=== PATIENT | female | born 1950 | race Caucasian/White ===

== ENCOUNTER 2016-12-26 15:10 | Inpatient (IN) | payer MEDICARE, BC ==
[2016-12-26] VITALS (39 sets, daily range): BP systolic 85–176; BP diastolic 36–146; PULSE 79–104; RESP 11–30; Ht 157.5 cm; Wt 75.0 kg
[~2016-12-26] VITALS: Ht 157.5 cm; Wt 75.0 kg
[2016-12-26] MEDS ORDERED: PROPOFOL 100 ML ONE (15:40)
[2016-12-26] MEDS ORDERED: ONDANSETRON 4 MG INJ IV PRN (16:00)
[2016-12-26 16:19] LABS: ADD SCAN DIFF NO
[2016-12-26 16:23] LABS: ABNORMAL IP MESSAGE 1; HEMOGLOBIN 11.2 g/dl (12.0-16.0); RED CELL DISTRIBUTION WIDTH 15.4 % (11.5-14.5)
--- NOTE | 2016-12-26 16:26 | CONS ---
Date/Time of Note Date/Time of Note DATE: 12/26/16 TIME: 16:20 Assessment/Plan Assessment/Plan Chief Complaint/Hosp Course Sepsis s/p CPA after trach change Respiratory failure, poss aspirated ? L PTX UTI===> yeast/Enterococcus Hx oral CA Encephalopathy Hx A fib and HTN Hx VRE + stool colonization Plan: Start Vanco, Merrem, Diflucan, check cx's, pulmonary/card rec-s Problems: Consultation Date/Type/Reason Admit Date/Time Dec 26, 2016 at 15:25 Type of Consultation: id Referring Provider: NINA MACIEL DO Exam/Review of Systems Vital Signs Vitals Vital Signs Date Time Temp Pulse Resp B/P Pulse Ox O2 Delivery O2 Flow Rate FiO2 12/26/16 16:00 18 129/83 Mechanical Ventilator 12/26/16 15:45 100 12/26/16 15:36 97.8 Medications Medications Current Medications Hydrocortisone 50 mg 50 mg Q8 IV ; Start 12/26/16 at 16:00 Sodium Chloride (NS) 1,000 ml @ 50 mls/hr Q20H IV ; Start 12/26/16 at 16:00 Ondansetron HCl (Zofran Inj) 4 mg Q6H PRN IV NAUSEA AND/OR VOMITING; Start at 16:00 Pantoprazole (Protonix Iv) 40 mg DAILY@06 IV ; Start 12/27/16 at 06:00 LORETO MCKEON NP Dec 26, 2016 16:26
[2016-12-26 16:30] LABS: HEMATOCRIT 34.2 % (37.0-47.0); MEAN CORPUSCULAR HEMOGLOBIN 31.8 pg (29.0-33.0); MEAN CORPUSCULAR HGB CONC 32.7 g/dl (32.0-37.0); MEAN CORPUSCULAR VOLUME 97.2 fl (82.0-101.0); RED BLOOD COUNT 3.52 10^6/ul (4.20-5.40); WHITE BLOOD COUNT 35.5 10^3/ul (4.8-10.8)
[2016-12-26] MEDS ORDERED: VANCOMYCIN IV PER PHARMACY XX SCH (16:30)
--- NOTE | 2016-12-26 16:30 | RADRPT ---
PROCEDURE: CHEST 1VW CLINICAL INDICATION: Shortness of breath TECHNIQUE: Single frontal view of the chest was obtained COMPARISON: 12/26/2016 FINDINGS: Stable positioning of endotracheal tube. Extensive subcutaneous emphysema is again seen. The cardiac size is normal. Aortic vascular calcifications are demonstrated. There is no pulmonary vascular congestion. The lungs are clear. No consolidation, effusion, or pneumothorax. Mild degenerative changes of the visualized osseous structures are visualized. Are not of the diaphr agm is again seen. IMPRESSION: 1. Stable extensive subcutaneous emphysema. 2. Atherosclerosis. 3. Stable intraperitoneal air. RPTAT:PP .Vikas Maher MD, Date Time Electronically viewed and signed by .Vikas Maher MD, on 12/26/2016 16:29 .V/
[2016-12-26 16:31] LABS: PLATELET COUNT 436 10^3/UL (140-415)
[2016-12-26] MEDS: SOD CHLORIDE 0.9% 1,000 ML IV SCH ×2 (16:32→20:40)
--- NOTE | 2016-12-26 16:33 | CONS ---
Date/Time of Note Date/Time of Note DATE: 12/26/16 TIME: 16:21 Assessment/Plan Assessment/Plan Chief Complaint/Hosp Course Cardiopulmonary Resuscitation by me: See code documentation for specific details. ACLS and BLS were performed with high quality chest compressions and minimal interruptions. Dr. Erwin, the neck skewer was present. He asked me to stay and assist with the code. Reversible causes were assessed and treated. The rest is likely respiratory in etiology. The neck skewer attempted to replace her trach with subsequent placement of the new trach in the subcutaneous tissue. He subsequently tried to orally intubate the patient with subsequent esophageal intubation. He then asked me to take over, after which I successfully intubated the patient. She had bloody discharge from the ET tube. After several bagged breaths, she had a return of spontaneous circulation with sinus tachycardia on the monitor. Pulses were palpable distally. Endotracheal Intubation by me: Pre assessment performed. See preceding note for details. RSI: Not done Blade: Mac 4 with assistance of bougie ET Tube: 7.0 cm passed over bougie Depth: 21 cm at the lip Intubation confirmed by colorimetric CO2, equal breath sounds, quiet over the stomach. Chest X-ray 1V Interpreted by me: 0.5 cm above the sammy ET tube. Subcutaneous emphysema, probable left pneumothorax. Critical Care Time: 30 minutes Treatments/Evaluations: Close monitoring and treatment of unstable vital signs, cardiorespiratory, and neurologic status, while maintaining tight balance of fluid, respiratory, and cardiac interventions. This time includes discussing the case with the patient and the patients family. This time does not include all procedures stated elsewhere in this record. This time also includes reviewing old records, labs and radiological studies. This time includes examining and re-examining the patient. Additionally, this time also includes arranging care with admitting and consulting physicians. Patient was going to be transferred to the ICU. Problems: (1) Cardiopulmonary arrest with successful resuscitation Status: Resolved (2) Acute and chronic respiratory failure Status: Acute Consultation Date/Type/Reason Admit Date/Time Dec 26, 2016 at 15:25 Date of Consultation: Dec 26, 2016 Type of Consultation: ED Physician Reason for Consultation Cardiopulmonary arrest Referring Provider: TRENT ERWIN MD Hx of Present Illness I was called to [facility] for a CODE BLUE for 66-year-old female with chronic respiratory failure with a tracheostomy who lost pulses. She had a trach change today that was complicated by bleeding from the tracheostomy site. After this she was stable, then subsequently lost pulses. When I arrived, Dr Erwin the neck skewer was in the room. He asked that I stay to assist with the code. It sounds like the patient was in PEA arrest initially. Compressions were in progress when I arrived Unable to obtain given mental status Past Medical History Medical History: other (Unable to obtain) Past Surgical History Past Surgical Hx: other (Unable to obtain) Family History Significant Family History: other (Unable to obtain) Social History Drug Use: other (Unable to obtain) Exam/Review of Systems Vital Signs Vitals Vital Signs Date Time Temp Pulse Resp B/P Pulse Ox O2 Delivery O2 Flow Rate FiO2 12/26/16 16:00 18 129/83 Mechanical Ventilator 12/26/16 15:45 100 12/26/16 15:36 97.8 Exam Const: Cyanotic, unresponsive, being bagged through the trach ENT: Blood present in oropharynx Neck: Trach in place with signs of old bleeding on her neck, no signs of active bleeding from the site Resp: Rhonchi bilaterally Cardio: Pulseless, CPR in progress Abd: Mildly distended Skin: Pale Ext: Cyanotic, no edema Neur: Obtunded Medications Medications Current Medications Hydrocortisone 50 mg 50 mg Q8 IV ; Start 12/26/16 at 16:00 Sodium Chloride (NS) 1,000 ml @ 50 mls/hr Q20H IV ; Start 12/26/16 at 16:00 Ondansetron HCl (Zofran Inj) 4 mg Q6H PRN IV NAUSEA AND/OR VOMITING; Start at 16:00 Pantoprazole (Protonix Iv) 40 mg DAILY@06 IV ; Start 12/27/16 at 06:00 MANJU FINNEY MD Dec 26, 2016 16:31
[2016-12-26 16:43] LABS: ALBUMIN 3.6 g/dl (3.3-4.9)
[2016-12-26 16:44] LABS: POTASSIUM 4.9 mmol/L (3.5-5.1)
[2016-12-26 16:46] LABS: ALBUMIN/GLOBULIN RATIO 1.28; BILIRUBIN,INDIRECT 0.5 mg/dl (0-1.1); BILIRUBIN,TOTAL 0.5 mg/dl (0.2-1.3); CREATININE 0.65 mg/dl (0.44-1.00); TOTAL PROTEIN 6.4 g/dl (6.1-8.1)
[2016-12-26 16:47] LABS: CALCIUM 9.4 mg/dl (8.4-10.2)
[2016-12-26 17:12] LABS: AADO2 Arterial 263.8 mmHg (7.0-24.0); Arterial Base Excess 3.2 mmol/L (-3.0-3); Arterial COHb 0.3 % (0.0-3.0); Arterial Fraction of Oxyhgb 98.7 % (93.0-99.0); Arterial HCO3 28.4 mmol/L (22.0-26.0); Arterial MetHb 0.4 % (0.0-1.5); Arterial Total Hemglobin 11.1 g/dl (12.0-18.0); MODE VENT - AC
[2016-12-26] MEDS: PROPOFOL 100 ML IV SCH ×3 (17:14→20:40)
[2016-12-26] MEDS: FLUCONAZOLE 100 MG/NS (PMX) 50 ML IVPB SCH (17:15)
[2016-12-26] MEDS: MEROPENEM 500 MG/100 ML (PMX) 100 ML IVPB SCH ×2 (17:15→22:53)
[2016-12-26] MEDS: HYDROCORTISONE 100 MG INJ IV SCH ×2 (17:15→22:49)
[2016-12-26 17:28] LABS: ADD UMIC YES; URINE BILIRUBIN (Dip) NEGATIVE (NEGATIVE); URINE BLOOD (Dip) TRACE (NEGATIVE); URINE COLOR LT. YELLOW (YELLOW); URINE GLUCOSE (Dip) NEGATIVE (NEGATIVE); URINE KETONES (Dip) NEGATIVE (NEGATIVE); URINE LEUKOCYTE ESTERASE (Dip) NEGATIVE (NEGATIVE); URINE NITRITE (Dip) NEGATIVE (NEGATIVE); URINE TOTAL PROTEIN (Dip) 2+ (NEGATIVE); URINE UROBILINOGEN (Dip) 0.2 E.U./dL (0.1-1.0)
[2016-12-26 17:33] LABS: LYMPHOCYTES # 1.4 10^3/ul (0.8-2.9); MONOCYTE # 1.1 10^3/ul (0.3-0.9)
[2016-12-26 17:34] LABS: PLATELET ESTIMATE PLT APPEAR ADEQUATE; PLATELETS CLUMPS 1+
[2016-12-26 18:13] LABS: RENAL EPITHELIAL CELLS,URINE MODERATE
[2016-12-26 18:14] LABS: BACTERIA,URINE MODERATE
[2016-12-26] MEDS ORDERED: VANCOMYCIN 1.5 GM in SOD CHLORIDE 0.9% 250 ML IVPB SCH (18:30)
[2016-12-26] MEDS ORDERED: VANCOMYCIN 2 GM in SOD CHLORIDE 0.9% 500 ML IVPB SCH (18:30)
[2016-12-26] MEDS ORDERED: NORepinephrine 8MG/250 ML (PMX 250 ML IV SCH (20:30)
[2016-12-27] VITALS (105 sets, daily range): BP systolic 96–171; BP diastolic 57–104; PULSE 70–89; RESP 0–19
--- NOTE | 2016-12-27 00:11 | CONS ---
DATE OF ADMISSION: 12/26/2016 DATE OF CONSULTATION: 12/26/2016 TYPE OF CONSULTATION: Infectious disease for Dr. Figueroa Le. REQUESTING PHYSICIAN: Abebe Valderrama DO HISTORY OF PRESENT ILLNESS: The patient is a 66-year-old white female who was admitted to [facility] from [place] after having several episodes of aspiration pneumo liliana-precipitated acute respiratory failure. 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 The patient upon arrival had a cardiac arrest with pulseless electrical activity. The patient was intubated with difficulty and resuscitated with appropriate cardiopulmonary resuscitation efforts. She was then stabilized and ad mitted to the intensive care unit. Her white count was 35,500 with 90 polys, 3 bands, 4 lymphocytes , 3 monocytes. Urinalysis had a specific gravity of 1.015 and 5 to 10 RBCs, no WBCs, negative leuko cyte esterase and nitrite. The patient's arterial blood gas had a pH of 7.52, pCO2 of 54 and a pO2 of 79 on 40% O2. Sputum culture initially has grown gram-negative rods and gram-positive cocci. Th ere is negative Clostridium difficile, and MRSA is negative. Chest x-ray revealed clear lungs with stable intraperitoneal air and subcutaneous emphysema. The patient was begun treatment with vancomy tosha, meropenem and Diflucan. The patient apparently previously had grown yeast and enterococcus latosha or to admission from her urine. PAST MEDICAL HISTORY: Paroxysmal atrial fibrillation and hypertension, hypothyroidism, adrenal insu fficiency, anemia of chronic disease, spontaneous right pneumothorax, dysphagia due to tongue resect ion. PAST SURGICAL HISTORY: Her operations have consisted of percutaneous gastrostomy and oral carcinoma surgery with tongue resection. ALLERGIES: THE PATIENT IS ALLERGIC TO: 1. POVIDONE IODINE. 2. OXYCODONE. 3. PROMETHAZINE. REVIEW OF SYSTEMS: The patient is unable to give a review of systems. MEDICATIONS: Include: 1. Pantoprazole. 2. Solu-Cortef 50 mg q.8h. for her John's. 3. Meropenem. 4. Diflucan. 5. Vancomycin. INITIAL IMPRESSION: 1. Cardiac arrest with successful resuscitation with complication of subcutaneous emphysema. 2. Aspiration pneumonia, recurrent. 3. Respiratory failure with multiple episodes due to aspiration. 4. History of dysphagia secondary to tongue resection. 5. Recovering acute renal failure due to aminoglycosides. 6. Adrenal insufficiency. 7. Hypothyroidism. 8. Hyperlipidemia. RECOMMENDATION: Continue present antibiotics until complete culture results have been obtained and add aerosolized Colistin 75 mg every 12 hours for 7 days. Also, I would recommend replacing the G-t ube with a J-tube or a G-J tube because of recurrent aspiration and no chance that there is going to be improvement of the anatomic situation above. Also continue proton pump inhibitors and recommend ing adding Reglan 10 mg IV q.8h. Thank you for referring this interesting patient to Dr. Figueroa Le. Dictated By: Trevin MONK/NTS Conf#: [id number] DID#: [id number]
[2016-12-27] MEDS: MEROPENEM 500 MG/100 ML (PMX) 100 ML IVPB SCH ×3 (05:29→21:19)
[2016-12-27] MEDS: PANTOPRAZOLE 40 MG INJ IV SCH (05:29)
[2016-12-27] MEDS: HYDROCORTISONE 100 MG INJ IV SCH ×3 (05:29→21:17)
[2016-12-27] MEDS: METOCLOPRAMIDE 10 MG INJ IV SCH ×3 (05:29→21:17)
[2016-12-27] MEDS: PROPOFOL 100 ML IV SCH ×4 (05:30→23:10)
[2016-12-27] MEDS: VANCOMYCIN 1 GM in NS 250 ML IVPB SCH ×2 (05:50→17:36)
[2016-12-27 05:58] LABS: ADD SCAN DIFF NO
[2016-12-27 06:26] LABS: POTASSIUM 3.8 mmol/L (3.5-5.1)
[2016-12-27 06:29] LABS: CREATININE 0.65 mg/dl (0.44-1.00)
[2016-12-27 06:30] LABS: CALCIUM 8.9 mg/dl (8.4-10.2); MAGNESIUM 2.2 mg/dl (1.7-2.5); PHOSPHORUS 3.5 mg/dl (2.5-4.9)
[2016-12-27] MEDS ORDERED: VANCOMYCIN 1.25 GM in SOD CHLORIDE 0.9% 250 ML IVPB SCH (06:30)
[2016-12-27 07:19] LABS: BASOPHILS % 0.1 % (0.0-2.0); HEMATOCRIT 25.5 % (37.0-47.0); HEMOGLOBIN 8.1 g/dl (12.0-16.0); LYMPHOCYTES # 1.1 10^3/ul (0.8-2.9); MEAN CORPUSCULAR HGB CONC 31.8 g/dl (32.0-37.0); MEAN CORPUSCULAR VOLUME 97.7 fl (82.0-101.0); MEAN PLATELET VOLUME 11.2 fl (7.4-10.4); MONOCYTE # 1.1 10^3/ul (0.3-0.9); NEUTROPHIL # 19.4 10^3/ul (1.6-7.5); NEUTROPHILS % 89.3 % (39.0-77.0); PLATELET COUNT 252 10^3/UL (140-415); RED BLOOD COUNT 2.61 10^6/ul (4.20-5.40); RED CELL DISTRIBUTION WIDTH 15.6 % (11.5-14.5); WHITE BLOOD COUNT 21.7 10^3/ul (4.8-10.8)
--- NOTE | 2016-12-27 07:23 | CONS ---
Date/Time of Note Date/Time of Note DATE: 12/27/16 TIME: 07:18 Assessment/Plan Assessment/Plan Additional Assessment/Plan Ventilator settings; AC of 14, tidal volume 400, PEEP of 0 30% FiO2. Patient currently on propofol 40 mics per kilogram per minute. Assessment recommendations; 1. Patient admitted to [facility] for continuation of COPD exacerbation status post head and neck cancer surgery status post tracheostomy. 2. Status post CPR after undergoing tracheostomy change. Patient does have recovery of mental status. Next 3. History of COPD. 4. History of chronic high-dose steroid use. 5. Leukocytosis, of unknown etiology. Possibly stress response, possibly exacerbated by intravenous hydrocortisone. Patient currently on broad-spectrum antibiotic coverage. 6. G-tube dislodgment. Next 7. Bilateral hypodense emphysema without any overt pneumothorax. Continue current treatment. Patient will need to have a redo tracheostomy done. Obtain a chest x-ray. Once x-rays done I will review it and decided the patient needs to have a CT scan of chest and. Most likely subcutaneous emphysema is tracking of air from the tracheostomy site. Meanwhile patient will be undergoing G-tube replacement today. Consultation Date/Type/Reason Admit Date/Time Dec 26, 2016 at 15:25 Initial Consult Date 12/26/16 Type of Consultation: Pulmonary/critical care Referring Provider: TRENT ARREGUIN MD 24 HR Interval Summary Free Text/Dictation Patient condition is critical but stable. Has remained hemodynamically stable. The patient yesterday underwent cardiac arrest at [facility] after undergoing a tracheostomy change patient was attended to at bedside by Dr. Ch and was intubated with some difficulty. Transferred to ICU. However after arrival here the patient did have spontaneous extremity movements therefore hypothermia protocol was not initiated. The patient was tried off sedation early this morning and according to the nurse patient does have good mental status and patient able to follow commands. Because of mild agitation she was re sedated.. General exam; elderly lady, or intubated. Currently in no distress. Sedated. Exam/Review of Systems Vital Signs Vitals Vital Signs Date Time Temp Pulse Resp B/P Pulse Ox O2 Delivery O2 Flow Rate FiO2 12/27/16 07:00 75 14 115/72 100 Mechanical Ventilator 12/27/16 05:40 30 12/27/16 04:00 97.7 Intake and Output 12/26/16 12/26/16 12/27/16 15:00 23:00 07:00 Intake Total 633.94 ml 774.96 ml Output Total 420 ml 250 ml Balance 213.94 ml 524.96 ml Exam H EENT exam; supple neck, or intubated. There is a mild soft tissue swelling involving the right side of the neck. Patient has good dentition. Pupils are equal and reactive to light. No lymphadenopathy. No thyromegaly. There is a dressing applied over the previous tracheostomy site. Next Chest examination KS: Diminished but clear breath sounds bilaterally. Mild bilateral subcutaneous emphysema felt involving the anterior chest wall. S1-S2 audible, no murmurs. Regular rhythm. Abdomen examination; soft, G-tube in place. Organomegaly, no organomegaly. Bowel sounds audible. Extremity examination; no peripheral edema. Pulses 1+ bilaterally. SEO EXECUTIVE examination a micro patient is sedated. Results Result Diagram: 12/26/16 1615 12/27/16 0545 Results 24 hrs Laboratory Tests Test 12/26/16 16:00 12/26/16 16:15 12/26/16 16:45 12/26/16 21:33 Urine Amorphous Urates MANY Urine Bacteria MODERATE Urine Bilirubin NEGATIVE Urine Clarity CLOUDY Urine Color LT. YELLOW Urine Glucose NEGATIVE Urine Hemoglobin TRACE Urine Ketones NEGATIVE Urine Leukocyte Esterase NEGATIVE Urine Microscopic RBC 5-10 Urine Microscopic WBC NONE SEEN Urine Nitrite NEGATIVE Urine Random Creatinine 25.64 Urine Random Sodium 126 H Urine Renal Epithelial Cells MODERATE Urine Specific Benedict[place] 1.015 Urine Total Protein 163.0 H Urine Urobilinogen 0.2 E.U./dL Urine pH 8.0 Alanine Aminotransferase (ALT/SGPT) 66 Albumin 3.6 Albumin/Globulin Ratio 1.28 Alkaline Phosphatase 166 H Anion Gap 19 #H Aspartate Amino Transf (AST/SGOT) 102 H Band Neutrophils % 3.0 Blood Urea Nitrogen 32 H Calcium Level 9.4 Carbon Dioxide Level 26 Chloride Level 99 Clumped Platelets 1+ Creatinine 0.65 Direct Bilirubin 0.00 Globulin 2.80 Glucose Level 194 Hematocrit 34.2 L Hemoglobin 11.2 L Indirect Bilirubin 0.5 Lymphocytes # 1.4 Lymphocytes % 4.0 L Mean Corpuscular Hemoglobin 31.8 Mean Corpuscular Hemoglobin Concent 32.7 Mean Corpuscular Volume 97.2 Mean Platelet Volume 11.0 H Monocytes # 1.1 H Monocytes % 3.0 Neutrophils # 32.0 H Neutrophils % 90.0 H Platelet Count 436 #H Platelet Estimate PLT APPEAR ADEQUATE Potassium Level 4.9 Red Blood Count 3.52 L Red Cell Distribution Width 15.4 H Sodium Level 139 Total Bilirubin 0.5 Total Protein 6.4 White Blood Count 35.5 #H Arterial Blood HCO3 28.4 H Arterial Blood Base Excess 3.2 H Arterial Blood Oxygen Saturation 99.4 H Jonn Test N/A Arterial Blood Gas Puncture Site Right Brachial Arterial Blood Carboxyhemoglobin 0.3 Arterial Blood Date Drawn 12/26/2016 4:55:17 PM Arterial Blood Methemoglobin 0.4 Arterial Blood pCO2 (Temp correct) 46.3 H Arterial Blood pH (Temp corrected) 7.406 Arterial Blood pO2 (Temp corrected) 402.9 H Blood Gas A-a O2 Differential 263.8 H Blood Gas Actual Respiration Rate 27 Blood Gas Critical Value Read Back Marilin BROOKS RN Blood Gas Modality VENT - AC Blood Gas Notified Time 12/19/2016 5:12:33 PM Blood Gas Notified Whom RDIX Blood Gas Respiration Rate 14.0 Blood Gas Specimen Source Blood arterial Blood Gas Temperature 37.0 Blood Gas Tidal Volume 400.0 FiO2 100.0 Oxyhemoglobin Percent 98.7 Total Hemoglobin 11.1 L Lactic Acid Level 1.2 Test 12/27/16 05:45 Anion Gap 14 Blood Urea Nitrogen 30 H Calcium Level 8.9 Carbon Dioxide Level 31 Chloride Level 99 Creatinine 0.65 Glucose Level 84 # Magnesium Level 2.2 Phosphorus Level 3.5 Potassium Level 3.8 Sodium Level 140 Medications Medications Current Medications Hydrocortisone 50 mg 50 mg Q8 IV Last administered on 12/27/16 05:29; Admin Dose 50 MG; Start 12/26/16 at 16:00 Sodium Chloride (NS) 1,000 ml @ 100 mls/hr Q10H IV Last administered on 20:40; Admin Dose 100 MLS/HR; Start 12/26/16 at 16:00 Ondansetron HCl (Zofran Inj) 4 mg Q6H PRN IV NAUSEA AND/OR VOMITING; Start at 16:00 Pantoprazole 40 mg 40 mg DAILY@06 IV Last administered on 12/27/16 05:29; Admin Dose 40 MG; Start 12/27/16 at 06:00 Meropenem 100 ml @ 200 mls/hr Q8 IVPB Last administered on 12/27/16 05:29; Admin Dose 200 MLS/HR; Start 12/26/16 at 17:30 Fluconazole/ Sodium Chloride 50 ml @ 50 mls/hr Q24H IVPB Last administered on 17:15; Admin Dose 50 MLS/HR; Start 12/26/16 at 17:30 Propofol 100 ml @ 3.12 mls/hr Q12H IV Last administered on 12/27/16 05:30; Admin Dose 18.72 MLS/HR; Start 12/26/16 at 17:00 Vancomycin HCl 250 ml @ 125 mls/hr Q12H IVPB Last administered on 12/27/16 05 :50; Admin Dose 125 MLS/HR; Start 12/27/16 at 06:30 Norepinephrine 250 ml @ 1.875 mls/ hr TITRATE IV ; Start 12/26/16 at 20:30 Norepinephrine/ Dextrose (Levophed/D5W) 500 ml @ 1.87 mls/hr TITRATE IV ; Start 12/26/16 at 20:30 Metoclopramide HCl (Reglan) 10 mg Q8 IV Last administered on 12/27/16 05:29; Admin Dose 10 MG; Start 12/27/16 at 06:00 EMILIANO HICKS 17, 2017 07:22
[2016-12-27 07:32] LABS: AADO2 Arterial 47.2 mmHg (7.0-24.0); Allen Test ACCEPTAB; Arterial COHb 0.3 % (0.0-3.0); Arterial Fraction of Oxyhgb 96.8 % (93.0-99.0); Arterial HCO3 28.6 mmol/L (22.0-26.0); Arterial MetHb 0.5 % (0.0-1.5); Arterial Total Hemglobin 8.3 g/dl (12.0-18.0); Blood Gas Low PEEP Setting 0 cmH2O; MODE VENT - AC
--- NOTE | 2016-12-27 08:08 | HP ---
DATE OF ADMISSION: 12/26/2016 CHIEF COMPLAINT: Status post code arrest. HISTORY OF PRESENT ILLNESS: This is a 66-year-old female with a past medical history of tongue canc er diagnosed 10 years ago status post resection and reconstruction surgery, history of hypertension, history of dysphagia status post PEG who initially presented to an outside hospital in September for shortness of breath. The patient at that time was diagnosed with bilateral healthcare-associated p neumonia secondary to pseudomonas. The patient also, during that hospital course, had intermittent nose bleeding. The patient had a prolonged hospital course that was complicated with respiratory fa ilure, intubation, extubation, and reintubation. The patient was eventually trached. The patient a lso developed acute kidney injury during the hospital course felt to be secondary to aminoglycosides . She was dialyzed for a total of 8 sessions. She has been off dialysis now for approximately 7 we eks. The patient was also septic due to pseudomonas pneumonia and was treated with IV antibiotics a nd completed her antibiotic course. The patient, during that hospital workup, also developed recurr ent nose bleeding, and given her previous history of oral cancer, tongue cancer, a CT scan and MRI w ere performed which apparently showed concerns for possible recurrence of mass. The patient was not able to be seen by ENT at outside hospital. The patient was eventually stabilized and transferred to [facility]. While at [facility], the patient was clinically stable and was continuing her respiratory care. The patient yesterday had an evaluation of her trach. Following the evaluat ion, the patient developed bleeding from the trach site and apparently aspirated and underwent a cod e arrest. The patient was coded for approximately 14 minutes. The patient was subsequently intubat ed and transferred to the intensive care unit at [facility]. The patient was not place d on hypothermic protocol. She had evidence of movements of her extremities and was beginning to wa ke up and open her eyes. While at the intensive care unit, the patient has been critical but stable . There have been no recurrent episodes of hemoptysis. No bleeding. The patient has had no hemato chezia. There have been no fevers, no rashes noted. Upon my evaluation at this time, the patient is sedated, intubated, and in no apparent distress. PAST MEDICAL HISTORY: As stated above, history of head and neck oral cancer status post surgical re section ____ years ago, history of chronic dysphagia status post PEG, history of hypothyroidism, his tory of hypertension, history of adrenal insufficiency, history of acute kidney injury status post h emodialysis, history of atrial fibrillation. PAST SURGICAL HISTORY: Status post PEG, status post tracheostomy, status post oral surgery. SOCIAL HISTORY: Does not drink, smoke, or do drugs. FAMILY HISTORY: Noncontributory. ALLERGIES: NO KNOWN DRUG ALLERGIES. MEDICATIONS: Have been reviewed. REVIEW OF SYSTEMS: A 14-point review of systems was conducted. Pertinent positives as stated in HP I; otherwise negative. PHYSICAL EXAMINATION: VITAL SIGNS: Blood pressure is 115/72, respiration 14, pulse 75, temperature 97.7. HEENT: Head is normocephalic. NECK: Shows dressing over tracheostomy site which is clean, dry, intact. HEART: Regular rate. LUNGS: Show diminished breath sounds at base. Positive rhonchi. ABDOMEN: Soft, nontender to palpation. Positive PEG. EXTREMITIES: Negative for clubbing, cyanosis, no edema. DERMATOLOGIC: No rashes. MUSCULOSKELETAL: No joint effusion. CHEST: The patient has noted crepitus. NEUROLOGIC: Limited exam as the patient is sedated. LABORATORY DATA: The patient's laboratory data shows sodium 140, potassium 3.8, chloride 99, BUN 13 , creatinine 0.65. White count 35.5, hemoglobin 11.2, hematocrit 34.2, platelet count is 436. ABG shows pH 7.4 with pCO2 of 46. Urinalysis was reviewed. ASSESSMENT AND PLAN: This is a 66-year-old female who presents with: 1. Status post code arrest. Etiology may be secondary to aspiration, hypoxemia. The patient had s pontaneous return of circulation. Currently, the patient is critical but hemodynamically stable. P ivana at this point is to follow up with Cardiology, Dr. Garcia, for further evaluation. We will get a 2D echo. We will check serial troponins. We will continue to monitor closely. 2. Ventilator dependent respiratory failure. The patient is status post intubation. Currently sta ble. ABG has been reviewed. Vent settings have been reviewed. We will continue to monitor. Follo w up with Pulmonary. 3. Acute tracheal bleed. Underlying etiology is unclear. The patient's tracheostomy was removed. We will place an ENT consult for further evaluation with Dr. Carpio and monitor closely. 4. Sepsis secondary to likely aspiration pneumonia. We will continue current broad spectrum antibi otics. Follow up cultures. Follow up with Infectious Disease. 5. History of adrenal insufficiency. The patient is currently on stress dose of hydrocortisone. W e will taper off over the next 24 to 48 hours and monitor closely. 6. Leukocytosis. Etiology is likely multifactorial secondary to steroids, sepsis. We will continu e to taper off hydrocortisone. Continue antibiotic therapy. 7. History of tongue cancer status post surgical resection. The possibility of recurrence at the [facility]. The patient is being followed by ENT. We will follow up recommendations. 8. Paroxysmal atrial fibrillation, currently in sinus rhythm. Continue to monitor. Continue medic al management. 9. Hypothyroidism. We will resume Synthroid. 10. Hypertension. Blood pressure is currently normotensive. Continue to monitor. 11. Dysphagia, status post PEG. The patient is pending GI evaluation with Dr. Higuera for G-tube ex change. 12. Anemia of chronic disease. Continue to monitor hemoglobin and hematocrit levels. 13. History of volume overload, diastolic heart failure. We will continue to monitor I's and O's c losely. We will decrease rate of IV fluids. 14. History of critical care myopathy. Continue to monitor. 15. Gastrointestinal and deep venous thrombosis prophylaxis. Continue proton pump inhibitor and se quential leg squeezers. Please note I spent over 40 minutes of critical care time with this patient. Dictated By: NINA PEREIRA/BALDO Conf#: [id number] DID#: [id number]
[2016-12-27] MEDS: COLISTIMETHATE (25 MG/ML INHAL SYG) NEB SCH ×2 (08:30→19:51)
[2016-12-27] MEDS ORDERED: ACETAMINOPHEN 650MG/20.3ML CUP GTB PRN (09:00)
[2016-12-27] MEDS ORDERED: POTASSIUM CHLORIDE 20 MEQ POWDER FOR ORAL SOLN JT ONE (09:00)
[2016-12-27] MEDS ORDERED: ZOLPIDEM 5 MG TAB PO PRN (09:00)
[2016-12-27] MEDS: predniSONE 20 MG TAB GTB SCH (09:00)
--- NOTE | 2016-12-27 09:12 | RADRPT ---
PROCEDURE: XR Chest. CLINICAL INDICATION: Status post intubation TECHNIQUE: A single AP view of the chest was obtained. COMPARISON: Chest x-ray dated 12/26/2016 FINDINGS: The endotracheal tube tip is 1 cm above the sammy. The lungs demonstrate diffuse bilateral interstitial opacities. There is a small left apical pneumo thorax. No pleural effusion is seen. The cardiomediastinal silhouette is mildly enlarged. Calcifi cations are seen within the aortic arch. Again noted is lucency along the cardiac border. There is extensive bilateral neck and chest wall subcutaneous emphysema. There is persistent air below the d iaphragm. The osseous structures are unremarkable. IMPRESSION: 1. Small left apical pneumothorax. In retrospect, present on the prior examination, but extremely difficult to visualize secondary to exposure technique and overlying subcutaneous emphysema. Overal l, no significant interval change. 2. Persistent pneumomediastinum, pneumoperitoneum and subcutaneous emphysema, overall improved from prior examination. 3. Bilateral interstitial opacities, likely reflecting interstitial edema. This is also unchanged. 4. Mild cardiomegaly and aortic atherosclerosis. 5. Endotracheal tube tip 1 cm above the sammy. RPTAT: HH .Arline Grier MD, MD Date Time Electronically viewed and signed by .Arline Grier MD, MD on 12/27/2016 09:11 .G/
[2016-12-27] MEDS: FLUTICASONE 0.05% 16 GM NAS SPRAY NASAL SCH ×2 (11:00→21:00)
[2016-12-27] MEDS: SOD CHLORIDE 0.9% 1,000 ML IV SCH ×2 (11:04→21:22)
--- NOTE | 2016-12-27 11:14 | RADRPT ---
PROCEDURE: CHEST 1VW CLINICAL INDICATION: Respiratory failure TECHNIQUE: Single frontal view of the chest was obtained COMPARISON: 12/27/2016 FINDINGS: Stable position of endotracheal tube. Stable subcutaneous chest wall emphysema. The cardiac size is normal. The degree of pneumoperitoneum has decreased since prior study. Aortic vascular calcifications are demonstrated. There is mild pulmonary vascular congestion. The lungs are clear. No consolidation, effusion, or pneumothorax. Mild degenerative changes of the visualized osseous structures are visualized. IMPRESSION: 1. Stable position of endotracheal tube. Stable subcutaneous chest wall emphysema. 2. Atherosclerosis with mild pulmonary congestion. 3. Decreased pneumoperitoneum. RPTAT:PP .Vikas Maher MD, MD Date Time Electronically viewed and signed by .Vikas Maher MD, MD on 12/27/2016 11:14 .V/
[2016-12-27] MEDS ORDERED: LIDOCAINE 1% (MDV) 20 ML INJ SC ONE (12:00)
--- NOTE | 2016-12-27 12:16 | CONS ---
DATE OF ADMISSION: 12/26/2016 DATE OF CONSULTATION: CONSULTATION FOLLOWUP SUBJECTIVE: No complaints. The patient is sedated. OBJECTIVE: VITAL SIGNS: Stable. She is off all the pressors. ABDOMEN: Benign. LUNGS: The patient is on vent. He is intubated orally. The crepitation has reduced. Air entry is good. EXTREMITIES: No edema. CENTRAL NERVOUS SYSTEM: The patient responds to deep stimulation, moves all the extremities. LABORATORY DATA: WBC has dropped down from 35,000 to 21.6, hematocrit also dropped down from 35 to 25, BUN is 30, alkaline phosphatase still was mildly elevated to 166. The chest x-ray today, there is a small left apical pneumothorax. There is a pneumomediastinum, pneumoperitoneum, and subcutaneo us emphysema. Overall improved from prior examination. The patient has cardiomegaly and endotrache al tube. IMPRESSION: 1. Subcutaneous emphysema which is dissected into the peritoneum. 2. Left apical pneumothorax. 3. Pneumomediastinum. 4. Malfunctioning G-tube which is changed at bedside now. 5. Anemia. No active gastrointestinal bleeding is noted. 6. Vent-dependent respiratory failure. 7. Acute tracheal bleed. 8. Adrenal insufficiency for which patient is on steroids. 9. Leukocytosis, improving. 10. Atrial fibrillation. 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 PLAN: G-tube has been changed to 20-Grenadian. We can resume feeding and all the medication through t he G-tube. Continue present care. Monitor WBC count and also hematocrit and will transfuse on a ne ed basis. Dictated By: ALYSSA INGRAM/BALDO Conf#: [id number] DID#: [id number]
--- NOTE | 2016-12-27 12:21 | GILP ---
DATE OF PROCEDURE: 12/27/2016 The patient is a 66-year-old female who has a malfunctioning G-tube. G-tube was placed for tongue cancer. The purpose is to change the G-tube at bedside. INFORMED CONSENT: The risk of the procedure, related and unrelated complications, explained to the and informed consent was obtained. DESCRIPTION OF PROCEDURE: The procedure was done bedside. The existing G-tube was removed by lubri cating the stalk. The bumper appeared to be somewhat calcified, making it slightly difficult to pul l it out. Once the G-tube was pulled out, the area was very well lubricated with KY jelly and a 20 Algerian replacement tube was passed with much ease into the stomach. The balloon was inflated with 2 0 mL of normal saline and there was a retrograde flow of gastric content, confirming its position in the G-tube. IMPRESSION: Successful change of G-tube done at bedside. PLAN: Resume feeding through the G-tube and give all the medications through the G-tube now. If th ere is any abdominal pain or discharge from the G-tube site, they should contact me. Dictated By: ALYSSA INGRAM/BALDO Conf#: [id number] DID#: [id number]
[2016-12-27] MEDS: ACETAZOLAMIDE 500 MG INJ IV SCH (13:43)
[2016-12-27] MEDS ORDERED: IPRATROPIUM (NEB) 0.5 MG/2.5 ML AMP HHN SCH (14:00)
[2016-12-27] MEDS ORDERED: LEVALBUTEROL (NEB) 0.63 MG/3 ML AMP HHN SCH (14:00)
--- NOTE | 2016-12-27 14:55 | PN ---
DATE: 12/27/2016 SUBJECTIVE: No acute changes. The patient is lying comfortably in bed, no fevers. VITAL SIGNS: Temperature 97.5, pulse 86, respirations 14, blood pressure 120/71, saturation 100% on 30% FIO2. LABORATORY DATA: WBC 21.7, H and H 8.1 and 25.5, platelets 252, neutrophils 89.3. BUN 30, creatini ne 0.65. INDWELLINGS: Endotracheal tube, Latif catheter, PEG. ANTIMICROBIALS: 1. Vancomycin. 2. Meropenem. 3. Diflucan. 4. The patient is also on Solu-Cortef. PHYSICAL EXAMINATION: GENERAL: Fragile, elderly woman who is lying comfortably in bed. HEENT: Head atraumatic, normocephalic. Sclerae anicteric. Buccal mucosa dry. NECK: Supple. Tracheostomy site covered with dressing. CHEST: Rise symmetrical. Breath sounds with crackles. HEART: S1, S2. ABDOMEN: Soft, bowel sounds present. EXTREMITIES: Without cyanosis. ASSESSMENT: 1. Status post cardiopulmonary arrest with acute respiratory failure requiring intubation. 2. Sepsis. 3. Probable aspiration pneumonia. 4. Urinary tract infection with cultures at [place] grew yeast and enterococcus. 5. Acute encephalopathy. 6. Vancomycin-resistant enterococcus stool colonization. 7. History of oral cancer. 8. Anemia. PLAN: The patient is hemodynamically stable, followed by multiple consultants. She is status post new PEG today. We will continue her on current regimen. Await for repeat cultures. Dictated By: LORETO MCKEON BULB SORTER for MARY LEONARDO/BALDO Conf#: [id number] DID#: [id number]
[2016-12-27] MEDS: CITALOPRAM 20 MG TAB GTB SCH (16:28)
[2016-12-27] MEDS: METOPROLOL 50 MG TAB GTB SCH ×2 (16:28→21:18)
--- NOTE | 2016-12-27 16:30 | RADRPT ---
PROCEDURE: XR Chest. CLINICAL INDICATION: Check PICC line position. TECHNIQUE: Single frontal view. COMPARISON: 12/27/2016. 0745 hours. FINDINGS: There is a left arm PICC line with the tip in the cavoatrial junction region. The endotracheal tube remains in satisfactory position. Extensive bilateral subcutaneous emphysema is unchanged. Mild p ulmonary edema is unchanged. The lungs are otherwise clear. The heart is mildly enlarged. There is calcification in the aorta consistent with atherosclerosis. There is no right pneumothorax. There is a small left pneumothorax, improved. Pneumoperitoneum has improved. IMPRESSION: 1. Satisfactory position of left arm PICC line. 2. Improved pneumoperitoneum and small left basilar pneumothorax. RPTAT: QQ .Guero Guadalupe MD, MD Date Time Electronically viewed and signed by .Guero Guadalupe MD, MD on 12/27/2016 16:29 .R/
[2016-12-27] MEDS: FLUCONAZOLE 100 MG/NS (PMX) 50 ML IVPB SCH (16:55)
[2016-12-27] MEDS ORDERED: SOD CHLORIDE 0.9% 100 ML ONE (17:17)
[2016-12-27] MEDS: LEVALBUTEROL (HFA) 15 GM INHALER INH SCH (19:51)
[2016-12-27] MEDS: IPRATROPIUM (HFA) 12.9 GM INHALER INH SCH (19:52)
[2016-12-27] MEDS ORDERED: ALBUTEROL HFA 8 GM INHALER INH SCH (20:00)
--- NOTE | 2016-12-27 20:56 | CONS ---
DATE OF ADMISSION: 12/26/2016 DATE OF CONSULTATION: 12/27/2016 REFERRING PHYSICIAN: Nina Valderrama MD REASON FOR CONSULTATION: Status post code blue, respiratory failure, arrhythmia. CHIEF COMPLAINT: Status post code blue. HISTORY OF PRESENT ILLNESS: Thank you for this referral. History obtained from the patient's chart , review of the old chart, discussion with the staff. The patient also known to me from previous ad mission to [facility]. The patient is an unfortunate, 66-year-old female with history of tongu e cancer, apparently diagnosed about 10 years ago, status post resection and reconstructive surgery. History of hypertension, dysphagia, status post PEG placement. The patient had a complicated cour se, including pneumonia, respiratory failure. The patient has been trached. Has been transferred t o [facility] for respiratory care. In [place], apparently, was evaluated for END. After that, apparently, reportedly has had a tracheal bleeding and followed by cardiopulmonary arrest and PEA. The patient has cardiopulmonary resuscitation, intubated and transferred to our facility. Patient h as had frequent PVCs. We were kindly asked to evaluate. PAST MEDICAL HISTORY: History of head and neck cancer status post-surgical resection many years ago , history of chronic dysphagia status post PEG placement disease, hypothyroidism, hypertension, hist ory of adrenal insufficiency, renal failure - status post dialysis - currently has improved, history of paroxysmal atrial fibrillation, previously, history of frequent PVCs. SURGICAL HISTORY: PEG placement. ENT surgery as above-mentioned, tracheostomy. SOCIAL HISTORY: Does not smoke or drink. FAMILY HISTORY: No reported coronary artery disease. ALLERGIES: NO REPORTED ALLERGIES. MEDICATIONS: As per medication reconciliation, personally reviewed. PHYSICAL EXAMINATION: VITAL SIGNS: Temperature 97.5, heart rate of 76, blood pressure 143/88, respiratory rate of 14, sat urating 100%. HEENT: Normocephalic, atraumatic. Status post intubation on the vent. NECK: Status post previous trach which is closed. CARDIOVASCULAR: Regular rate and rhythm, systolic murmur. PULMONARY: No wheezes heard, mild rhonchi at the base. GASTROINTESTINAL: Soft, nontender. EXTREMITIES: ____ . NEUROLOGIC: Sedated. LABORATORY: WBC of 21.7, hemoglobin of 8.1, platelets of 252. Sodium 140, potassium 3.8, BUN of 30 , creatinine of 2.65, glucose of 84. REVIEW OF OLD CHART: Showed echocardiogram done on December 26, which was personally reviewed, showe d an ejection fraction of 65%. The aortic valve has mild aortic stenosis. Rhythm strip shows sinus rhythm with frequent PVCs. ASSESSMENT AND PLAN 1. Status post cardiopulmonary arrest, most likely related to pulmonary arrest. 2. Respiratory failure, status post tracheostomy, currently intubated on the vent, vent-dependent. 3. History of sepsis and status post aspiration pneumonitis probably. 4. Tracheal bleeding, currently stabilized. 5. Severe anemia, secondary to #1. 6. Paroxysmal atrial fibrillation, currently in sinus rhythm. 7. Dysphagia, status post placement. 8. Frequent premature ventricular contractions with ventricular arrhythmia, currently is stable. W e will continue to monitor. 9. History of critical care myopathy. RECOMMENDATIONS: We will continue with the current ICU care. Vent support will be continued. Frances tor electrolytes, correct as needed. Beta shanta as tolerated. Will be continued as p.o. antibiot ic as per internal medicine and ID. We will continue to follow along with you. Thank you for this referral. Dictated By: FRANCISCO BLACKWOOD MD AV/BALDO Conf#: [id number] DID#: [id number] CC: NINA VALDERRAMA DO;*EndCC*
[2016-12-27] MEDS: ATORVASTATIN 40 MG TAB GTB SCH (21:17)
[2016-12-28] VITALS (76 sets, daily range): BP systolic 90–147; BP diastolic 55–89; PULSE 70–85; RESP 8–20
[2016-12-28] MEDS: IPRATROPIUM (HFA) 12.9 GM INHALER INH SCH ×4 (01:27→19:40)
[2016-12-28] MEDS: LEVALBUTEROL (HFA) 15 GM INHALER INH SCH ×4 (01:27→19:40)
[2016-12-28] MEDS: PROPOFOL 100 ML IV SCH ×4 (05:20→21:49)
[2016-12-28] MEDS: MEROPENEM 500 MG/100 ML (PMX) 100 ML IVPB SCH ×2 (06:16→21:37)
[2016-12-28] MEDS: HYDROCORTISONE 100 MG INJ IV SCH ×3 (06:17→21:37)
[2016-12-28] MEDS: PANTOPRAZOLE 40 MG INJ IV SCH (06:17)
[2016-12-28] MEDS: METOCLOPRAMIDE 10 MG INJ IV SCH ×3 (06:17→21:37)
[2016-12-28] MEDS: LEVOTHYROXINE 75 MCG TAB GTB SCH (06:18)
[2016-12-28 06:27] LABS: ADD SCAN DIFF NO
[2016-12-28] MEDS: VANCOMYCIN 1 GM in NS 250 ML IVPB SCH ×2 (06:30→20:02)
[2016-12-28 06:55] LABS: BASOPHILS % 0.1 % (0.0-2.0); HEMATOCRIT 23.8 % (37.0-47.0); HEMOGLOBIN 7.6 g/dl (12.0-16.0); LYMPHOCYTES # 0.8 10^3/ul (0.8-2.9); LYMPHOCYTES % 4.9 % (15.0-51.0); MEAN CORPUSCULAR HEMOGLOBIN 31.3 pg (29.0-33.0); MEAN CORPUSCULAR HGB CONC 31.9 g/dl (32.0-37.0); MEAN CORPUSCULAR VOLUME 97.9 fl (82.0-101.0); MEAN PLATELET VOLUME 12.1 fl (7.4-10.4); MONOCYTE # 0.9 10^3/ul (0.3-0.9); MONOCYTES % 5.6 % (0.0-11.0); NEUTROPHIL # 13.5 10^3/ul (1.6-7.5); NEUTROPHILS % 88.5 % (39.0-77.0); PLATELET COUNT 300 10^3/UL (140-415); RED BLOOD COUNT 2.43 10^6/ul (4.20-5.40); RED CELL DISTRIBUTION WIDTH 15.9 % (11.5-14.5); WHITE BLOOD COUNT 15.3 10^3/ul (4.8-10.8)
[2016-12-28 07:01] LABS: POTASSIUM 3.4 mmol/L (3.5-5.1)
[2016-12-28 07:04] LABS: CREATININE 0.64 mg/dl (0.44-1.00)
[2016-12-28 07:05] LABS: CALCIUM 8.5 mg/dl (8.4-10.2); MAGNESIUM 1.9 mg/dl (1.7-2.5); PHOSPHORUS 3.4 mg/dl (2.5-4.9)
[2016-12-28] MEDS: COLISTIMETHATE (25 MG/ML INHAL SYG) NEB SCH ×2 (08:25→19:40)
[2016-12-28] MEDS: METOPROLOL 50 MG TAB GTB SCH ×2 (09:32→21:34)
[2016-12-28] MEDS: predniSONE 20 MG TAB GTB SCH (09:32)
[2016-12-28] MEDS: CITALOPRAM 20 MG TAB GTB SCH (09:33)
[2016-12-28] MEDS: ACETAZOLAMIDE 500 MG INJ IV SCH (09:33)
[2016-12-28] MEDS: FLUTICASONE 0.05% 16 GM NAS SPRAY NASAL SCH ×2 (09:34→21:37)
--- NOTE | 2016-12-28 10:41 | CONS ---
Date/Time of Note Date/Time of Note DATE: 12/28/16 TIME: 10:21 Consult Date/Type/Reason Admit Date/Time Dec 26, 2016 at 15:25 Initial Consult Date 12/26/16 Type of Consultation: med Ordering Provider: TRENT ARREGUIN MD Subjective This is a 66-year-old female with a past medical history of tongue cancer diagnosed 10 years ago status post resection and reconstruction surgery, history of hypertension, history of dysphagia status post PEG who initially presented to an outside hospital in September for shortness of breath. The patient had a prolonged hospital course that was complicated with respiratory failure, intubation, extubation, and reintubation. The patient was eventually trached. The patient also developed acute kidney injury during the hospital course felt to be secondary to aminoglycosides. She was dialyzed for a total of 8 sessions. She has been off dialysis now for approximately 7 weeks. The patient was also septic due to pseudomonas pneumonia and was treated with IV antibiotics and completed her antibiotic course. The patient, during that hospital workup, also developed recurrent nose bleeding, and given her previous history of oral cancer, tongue cancer, a CT scan and MRI were performed which apparently showed concerns for possible recurrence of mass. The patient was not able to be seen by ENT at outside hospital. The patient was eventually stabilized and transferred to [facility]. While at [facility], the patient was clinically stable and was continuing her respiratory care. The patient had an evaluation of her trach. Following the evaluation, the patient developed bleeding from the trach site and apparently aspirated and underwent an arrest. The patient was coded for approximately 14 minutes. The patient was subsequently intubated and transferred to the intensive care unit at [facility]. The patient was not placed on hypothermic protocol. She had evidence of movements of her extremities and was beginning to wake up and open her eyes. While at the intensive care unit, the patient has been critical but stable. There have been no recurrent episodes of hemoptysis. No bleeding. The patient has had no hematochezia. There have been no fevers, no rashes noted. PAST MEDICAL HISTORY: As stated above, history of head and neck oral cancer status post surgical resection, history of chronic dysphagia status post PEG, history of hypothyroidism, history of hypertension, history of adrenal insufficiency, history of acute kidney injury status post hemodialysis, history of atrial fibrillation. HEENT: Head is normocephalic. NECK: Shows dressing over tracheostomy site which is clean, dry, intact. HEART: Regular rate. LUNGS: Show diminished breath sounds at base. Positive rhonchi. ABDOMEN: Soft, nontender to palpation. Positive PEG. EXTREMITIES: Negative for clubbing, cyanosis, no edema. DERMATOLOGIC: No rashes. MUSCULOSKELETAL: No joint effusion. CHEST: The patient has noted crepitus. NEUROLOGIC: Limited exam as the patient is sedated. Objective Vital Signs Date Time Temp Pulse Resp B/P Pulse Ox O2 Delivery O2 Flow Rate FiO2 12/28/16 09:30 79 16 132/72 99 12/28/16 09:00 Mechanical Ventilator 12/28/16 08:00 98.6 12/28/16 05:06 30 Intake and Output 12/27/16 12/27/16 12/28/16 15:00 23:00 07:00 Intake Total 1199.76 ml 1302.32 ml 1192.88 ml Output Total 400 ml 335 ml 350 ml Balance 799.76 ml 967.32 ml 842.88 ml Results/Medications Result Diagram: 12/28/16 0600 12/28/16 0600 Results 24 hrs Laboratory Tests Test 12/28/16 06:00 Anion Gap 12 Basophils # 0.0 Basophils % 0.1 Blood Urea Nitrogen 27 H Calcium Level 8.5 Carbon Dioxide Level 28 Chloride Level 104 Creatinine 0.64 Eosinophils # 0.0 Eosinophils % 0.0 Glucose Level 141 # Hematocrit 23.8 L Hemoglobin 7.6 L Lymphocytes # 0.8 Lymphocytes % 4.9 L Magnesium Level 1.9 Mean Corpuscular Hemoglobin 31.3 Mean Corpuscular Hemoglobin Concent 31.9 L Mean Corpuscular Volume 97.9 Mean Platelet Volume 12.1 H Monocytes # 0.9 Monocytes % 5.6 Neutrophils # 13.5 H Neutrophils % 88.5 H Nucleated Red Blood Cells # 0.0 Nucleated Red Blood Cells % 0.0 Phosphorus Level 3.4 Platelet Count 300 Potassium Level 3.4 L Red Blood Count 2.43 L Red Cell Distribution Width 15.9 H Sodium Level 141 Vancomycin Level Trough 26.1 *H White Blood Count 15.3 #H Medications Current Medications Hydrocortisone 50 mg 50 mg Q8 IV Last administered on 12/28/16t 06:17; Admin Dose 50 MG; Start 12/26/16 at 16:00 Sodium Chloride (NS) 1,000 ml @ 50 mls/hr Q20H IV Last administered on 21:22; Admin Dose 50 MLS/HR; Start 12/26/16 at 16:00 Ondansetron HCl (Zofran Inj) 4 mg Q6H PRN IV NAUSEA AND/OR VOMITING; Start at 16:00 Pantoprazole 40 mg 40 mg DAILY@06 IV Last administered on 12/28/16 06:17; Admin Dose 40 MG; Start 12/27/16 at 06:00 Meropenem 100 ml @ 200 mls/hr Q8 IVPB Last administered on 12/28/16 06:16; Admin Dose 200 MLS/HR; Start 12/26/16 at 17:30 Fluconazole/ Sodium Chloride 50 ml @ 50 mls/hr Q24H IVPB Last administered on 16:55; Admin Dose 50 MLS/HR; Start 12/26/16 at 17:30 Propofol 100 ml @ 3.12 mls/hr Q12H IV Last administered on 12/28/16 05:20; Admin Dose 21.84 MLS/HR; Start 12/26/16 at 17:00 Norepinephrine/ Dextrose (Levophed/D5W) 500 ml @ 1.87 mls/hr TITRATE IV ; Start 12/26/16 at 20:30 Metoclopramide HCl (Reglan) 10 mg Q8 IV Last administered on 12/28/16 06:17; Admin Dose 10 MG; Start 12/27/16 at 06:00 Acetaminophen (Tylenol Liquid) 650 mg Q4H PRN GTB PAIN AND OR ELEVATED TEMP; Start 12/27/16 at 09:00 Acetazolamide (Diamox) 500 mg DAILY IV Last administered on 12/28/16 09:33; Admin Dose 500 MG; Start 12/27/16 at 11:00 Atorvastatin Calcium (Lipitor) 40 mg HS GTB Last administered on 12/27/16 21: 17; Admin Dose 40 MG; Start 12/27/16 at 21:00 Citalopram Hydrobromide (Celexa) 40 mg DAILY GTB Last administered on 09:33; Admin Dose 40 MG; Start 12/27/16 at 09:00 Fluticasone Propionate (Flonase 0.05% Nasal) 2 spray BID NASAL Last administered on 12/28/16 09:34; Admin Dose 2 SPRAY; Start 12/27/16 at 11:00 Levothyroxine Sodium (Synthroid) 75 mcg DAILY@06 GTB Last administered on 06:18; Admin Dose 75 MCG; Start 12/28/16 at 06:00 Metoprolol Tartrate (Lopressor) 50 mg BID GTB Last administered on 12/28/16 09 :32; Admin Dose 50 MG; Start 12/27/16 at 09:00 Prednisone (Prednisone) 20 mg DAILY GTB Last administered on 12/28/16 09:32; Admin Dose 20 MG; Start 12/27/16 at 09:00 Zolpidem Tartrate (Ambien) 5 mg HS PRN PO INSOMNIA; Start 12/27/16 at 09:00 Acetaminophen/ Hydrocodone Bitart ([place] (5/325)) 1 tab Q6H PRN PO PAIN; Start 12/27/16 at 09:00 IV Flush 10 ml 10 ml PRN PRN IV IV PROTOCOL; Start 12/27/16 at 16:00 Vancomycin HCl (Vancocin) 250 ml @ 125 mls/hr Q24H IVPB ; Start 12/28/16 at 18: 00 Assessment/Plan Chief Complaint/Hosp Course 1. Status post code arrest. Etiology may be secondary to aspiration, hypoxemia. The patient had spontaneous return of circulation. Currently, the patient is critical but hemodynamically stable. Plan at this point is to follow up with Cardiology, Dr. Garcia, for further evaluation. We will continue to monitor closely. 2. Ventilator dependent respiratory failure. The patient is status post intubation. Currently stable. ABG has been reviewed. Vent settings have been reviewed. We will continue to monitor. Follow up with Pulmonary. 3. Acute tracheal bleed. Underlying etiology is unclear. The patient's tracheostomy was removed. We will place an ENT consult for further evaluation with Dr. Carpio and monitor closely. 4. Sepsis secondary to likely aspiration pneumonia. We will continue current broad spectrum antibiotics. Follow up cultures. Follow up with Infectious Disease. 5. History of adrenal insufficiency. The patient is currently on stress dose of hydrocortisone. We will taper off over the next 24 to 48 hours and monitor closely. 6. Leukocytosis. Etiology is likely multifactorial secondary to steroids, sepsis. We will continue to taper off hydrocortisone. Continue antibiotic therapy. 7. History of tongue cancer status post surgical resection. The possibility of recurrence at the outside hospital. The patient is being followed by ENT. We will follow up recommendations. 8. Paroxysmal atrial fibrillation, currently in sinus rhythm. Continue to monitor. Continue medical management. 9. Hypothyroidism. We will resume Synthroid. 10. Hypertension. Blood pressure is currently normotensive. Continue to monitor. 11. Dysphagia, status post PEG. The patient is pending GI evaluation with Dr. Higuera for G-tube exchange. 12. Anemia of chronic disease. Continue to monitor hemoglobin and hematocrit levels. 13. History of volume overload, diastolic heart failure. We will continue to monitor I's and O's closely. We will decrease rate of IV fluids. 14. History of critical care myopathy. Continue to monitor. 15. Gastrointestinal and deep venous thrombosis prophylaxis. Continue proton pump inhibitor and sequential leg squeezers. Please note I spent over 40 minutes of critical care time with this patient. Problems: HILARY RUBIO MD Dec 28, 2016 10:41
--- NOTE | 2016-12-28 11:31 | PN ---
DATE: 12/28/2016 SUBJECTIVE: The patient continues mechanical ventilation. She is alert, off sedation and currently hemodynamically stable. PHYSICAL EXAMINATION: VITAL SIGNS: Temperature 98, pulse is 79, blood pressure 132/70, O2 saturation 96% on FIO2 of 40%, orally intubated. NECK: Supple. No JVD or lymphadenopathy. CARDIAC EXAM: S1, S2. No added sounds or murmurs. CHEST: Diminished air entry bilaterally. ABDOMEN: Soft, nontender. No guarding or rebound. EXTREMITIES: No cyanosis, clubbing or edema. NEUROLOGIC: Appears grossly intact. IMAGING: Chest x-ray was reviewed and shows right greater than left infiltrates. IMPRESSION AND PLAN: 1. Hypoxemic respiratory failure, with significant tracheostomy and bleeding. The patient was deca nnulated and orally intubated for airway protection. 2. History of chronic obstructive pulmonary disease. 3. History of chronic steroid use. 4. Obstructive dysphagia, with gastrostomy tube. 5. Significant bilateral infiltrates, consistent with a pneumonic process. PLAN: 1. Continue orotracheal intubation. 2. Continue mechanical ventilation. 3. Continue tube feeding. 4. Continue DVT and GI prophylaxis. Dictated By: DARWIN STEVENS/BALDO Conf#: [id number] DID#: [id number]
[2016-12-28] MEDS ORDERED: IOHEXOL 300MG/ML 150 ML BTL ONE (14:12)
[2016-12-28] MEDS ORDERED: SOD CHLORIDE 0.9% 100 ML ONE (14:13)
--- NOTE | 2016-12-28 15:11 | CONS ---
Date/Time of Note Date/Time of Note DATE: 12/28/16 TIME: 15:04 Assessment/Plan Assessment/Plan Chief Complaint/Hosp Course SUBJECTIVE: No acute changes. The patient is lying comfortably in bed, opens eyes to voice, no fevers. INDWELLINGS: Endotracheal tube, Latif catheter, PEG. ANTIMICROBIALS: 1. Vancomycin. 2. Meropenem. 3. Diflucan. 4. The patient is also on Solu-Cortef. PHYSICAL EXAMINATION: GENERAL: Fragile, elderly woman who is lying comfortably in bed. HEENT: Head atraumatic, normocephalic. Sclerae anicteric. Buccal mucosa dry. NECK: Supple. Tracheostomy site covered with dressing. CHEST: Rise symmetrical. Breath sounds with crackles. HEART: S1, S2. ABDOMEN: Soft, bowel sounds present. EXTREMITIES: Without cyanosis. ASSESSMENT: 1. Status post cardiopulmonary arrest with acute respiratory failure requiring intubation. 2. Sepsis. 3. Probable aspiration pneumonia. 4. Urinary tract infection with cultures at [facility] grew yeast and enterococcus. 5. Acute encephalopathy. 6. Vancomycin-resistant enterococcus stool colonization. 7. History of oral cancer. 8. Anemia. PLAN: The patient is hemodynamically stable, wbc decreasing, we will continue her on current abx, f/u recommendations of consultants. DW staff Problems: Consultation Date/Type/Reason Admit Date/Time Dec 26, 2016 at 15:25 Initial Consult Date 12/26/16 Type of Consultation: ID Referring Provider: TRENT ARREGUIN MD Exam/Review of Systems Vital Signs Vitals Vital Signs Date Time Temp Pulse Resp B/P Pulse Ox O2 Delivery O2 Flow Rate FiO2 12/28/16 12:00 73 12/28/16 12:00 30 12/28/16 09:30 16 132/72 99 12/28/16 09:00 Mechanical Ventilator 12/28/16 08:00 98.6 Intake and Output 12/27/16 12/27/16 12/28/16 14:59 22:59 06:59 Intake Total 1199.76 ml 1391.04 ml 1021.04 ml Output Total 355 ml 370 ml 345 ml Balance 844.76 ml 1021.04 ml 676.04 ml Results Result Diagram: 12/28/16 0600 12/28/16 0600 Results 24 hrs Laboratory Tests Test 12/28/16 06:00 Anion Gap 12 Basophils # 0.0 Basophils % 0.1 Blood Urea Nitrogen 27 H Calcium Level 8.5 Carbon Dioxide Level 28 Chloride Level 104 Creatinine 0.64 Eosinophils # 0.0 Eosinophils % 0.0 Glucose Level 141 # Hematocrit 23.8 L Hemoglobin 7.6 L Lymphocytes # 0.8 Lymphocytes % 4.9 L Magnesium Level 1.9 Mean Corpuscular Hemoglobin 31.3 Mean Corpuscular Hemoglobin Concent 31.9 L Mean Corpuscular Volume 97.9 Mean Platelet Volume 12.1 H Monocytes # 0.9 Monocytes % 5.6 Neutrophils # 13.5 H Neutrophils % 88.5 H Nucleated Red Blood Cells # 0.0 Nucleated Red Blood Cells % 0.0 Phosphorus Level 3.4 Platelet Count 300 Potassium Level 3.4 L Red Blood Count 2.43 L Red Cell Distribution Width 15.9 H Sodium Level 141 Vancomycin Level Trough 26.1 *H White Blood Count 15.3 #H Medications Medications Current Medications Hydrocortisone 50 mg 50 mg Q8 IV Last administered on 12/28/16 06:17; Admin Dose 50 MG; Start 12/26/16 at 16:00 Sodium Chloride (NS) 1,000 ml @ 50 mls/hr Q20H IV Last administered on 21:22; Admin Dose 50 MLS/HR; Start 12/26/16 at 16:00 Ondansetron HCl (Zofran Inj) 4 mg Q6H PRN IV NAUSEA AND/OR VOMITING; Start at 16:00 Pantoprazole 40 mg 40 mg DAILY@06 IV Last administered on 12/28/16 06:17; Admin Dose 40 MG; Start 12/27/16 at 06:00 Fluconazole/ Sodium Chloride 50 ml @ 50 mls/hr Q24H IVPB Last administered on 16:55; Admin Dose 50 MLS/HR; Start 12/26/16 at 17:30 Propofol 100 ml @ 3.12 mls/hr Q12H IV Last administered on 12/28/16 11:33; Admin Dose 21.84 MLS/HR; Start 12/26/16 at 17:00 Norepinephrine/ Dextrose (Levophed/D5W) 500 ml @ 1.87 mls/hr TITRATE IV ; Start 12/26/16 at 20:30 Metoclopramide HCl (Reglan) 10 mg Q8 IV Last administered on 12/28/16 06:17; Admin Dose 10 MG; Start 12/27/16 at 06:00 Acetaminophen (Tylenol Liquid) 650 mg Q4H PRN GTB PAIN AND OR ELEVATED TEMP; Start 12/27/16 at 09:00 Acetazolamide (Diamox) 500 mg DAILY IV Last administered on 12/28/16 09:33; Admin Dose 500 MG; Start 12/27/16 at 11:00 Atorvastatin Calcium (Lipitor) 40 mg HS GTB Last administered on 12/27/16 21: 17; Admin Dose 40 MG; Start 12/27/16 at 21:00 Citalopram Hydrobromide (Celexa) 40 mg DAILY GTB Last administered on 09:33; Admin Dose 40 MG; Start 12/27/16 at 09:00 Fluticasone Propionate (Flonase 0.05% Nasal) 2 spray BID NASAL Last administered on 12/28/16 09:34; Admin Dose 2 SPRAY; Start 12/27/16 at 11:00 Levothyroxine Sodium (Synthroid) 75 mcg DAILY@06 GTB Last administered on 06:18; Admin Dose 75 MCG; Start 12/28/16 at 06:00 Metoprolol Tartrate (Lopressor) 50 mg BID GTB Last administered on 12/28/16 09 :32; Admin Dose 50 MG; Start 12/27/16 at 09:00 Prednisone (Prednisone) 20 mg DAILY GTB Last administered on 12/28/16 09:32; Admin Dose 20 MG; Start 12/27/16 at 09:00 Zolpidem Tartrate (Ambien) 5 mg HS PRN PO INSOMNIA; Start 12/27/16 at 09:00 Acetaminophen/ Hydrocodone Bitart ([place] (5/325)) 1 tab Q6H PRN PO PAIN; Start 12/27/16 at 09:00 IV Flush 10 ml 10 ml PRN PRN IV IV PROTOCOL; Start 12/27/16 at 16:00 Vancomycin HCl 250 ml @ 125 mls/hr Q24H IVPB ; Start 12/28/16 at 18:00 Meropenem (Merrem 500 Mg/ 100 ml (Pmx)) 100 ml @ 200 mls/hr Q12 IVPB ; Start at 21:00 LORETO MCKEON NP Dec 28, 2016 15:11
--- NOTE | 2016-12-28 16:59 | CONS ---
Date/Time of Note Date/Time of Note DATE: 12/28/16 TIME: 16:58 Assessment/Plan Assessment/Plan Additional Assessment/Plan IMPRESSION: 1. Subcutaneous emphysema which is dissected into the peritoneum. 2. Left apical pneumothorax. 3. Pneumomediastinum. 4. Malfunctioning G-tube which is changed at bedside now. 5. Anemia. No active gastrointestinal bleeding is noted.bleeding from tracheostomy site 6. Vent-dependent respiratory failure. 7. Acute tracheal bleed. 8. Adrenal insufficiency for which patient is on steroids. 9. Leukocytosis, improving. 10. Atrial fibrillation. 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 PLAN: G-tube has been changed to 20-[place]. We can resume feeding and all the medication through the G-tube. Continue present care. Monitor WBC count and also hematocrit and will transfuse on a need basis. continue feeding will review CT ,once read Consultation Date/Type/Reason Admit Date/Time Dec 26, 2016 at 15:25 Initial Consult Date 12/26/16 Type of Consultation: ID Referring Provider: TRENT ARREGUIN MD 24 HR Interval Summary Constitutional: improved Exam/Review of Systems Vital Signs Vitals Vital Signs Date Time Temp Pulse Resp B/P Pulse Ox O2 Delivery O2 Flow Rate FiO2 12/28/16 16:30 77 8 117/66 12/28/16 16:00 98.0 100 Mechanical Ventilator 12/28/16 15:10 30 Intake and Output 12/27/16 12/27/16 12/28/16 15:00 23:00 07:00 Intake Total 1199.76 ml 1302.32 ml 1192.88 ml Output Total 400 ml 335 ml 350 ml Balance 799.76 ml 967.32 ml 842.88 ml Exam Constitutional: alert, oriented, well developed Psych: nl mood/affect, no complaints Head: atraumatic, normocephalic Eyes: EOMI, PERRL, nl conjunctiva, nl lids, nl sclera ENMT: nl external ears & nose, nl lips & teeth, nl nasal mucosa & septum Neck: non-tender, supple Respiratory: clear to auscultation, normal air movement Cardiovascular: nl pulses, regular rate and rhythm Gastrointestinal: nl liver, spleen, non-tender, soft Musculoskeletal: nl extremities to inspection, nl gait and stance Extremities: normal pulses Neurological: CARD FEEDER II-XII intact, nl mental status, nl speech, nl strength Skin: nl turgor, No rash or lesions Lymph: nl lymph nodes Results Result Diagram: 12/28/16 0600 12/28/16 0600 Results 24 hrs Laboratory Tests Test 12/28/16 06:00 Anion Gap 12 Basophils # 0.0 Basophils % 0.1 Blood Urea Nitrogen 27 H Calcium Level 8.5 Carbon Dioxide Level 28 Chloride Level 104 Creatinine 0.64 Eosinophils # 0.0 Eosinophils % 0.0 Glucose Level 141 # Hematocrit 23.8 L Hemoglobin 7.6 L Lymphocytes # 0.8 Lymphocytes % 4.9 L Magnesium Level 1.9 Mean Corpuscular Hemoglobin 31.3 Mean Corpuscular Hemoglobin Concent 31.9 L Mean Corpuscular Volume 97.9 Mean Platelet Volume 12.1 H Monocytes # 0.9 Monocytes % 5.6 Neutrophils # 13.5 H Neutrophils % 88.5 H Nucleated Red Blood Cells # 0.0 Nucleated Red Blood Cells % 0.0 Phosphorus Level 3.4 Platelet Count 300 Potassium Level 3.4 L Red Blood Count 2.43 L Red Cell Distribution Width 15.9 H Sodium Level 141 Vancomycin Level Trough 26.1 *H White Blood Count 15.3 #H Medications Medications Current Medications Hydrocortisone 50 mg 50 mg Q8 IV Last administered on 12/28/16 15:54; Admin Dose 50 MG; Start 12/26/16 at 16:00 Sodium Chloride (NS) 1,000 ml @ 50 mls/hr Q20H IV Last administered on 21:22; Admin Dose 50 MLS/HR; Start 12/26/16 at 16:00 Ondansetron HCl (Zofran Inj) 4 mg Q6H PRN IV NAUSEA AND/OR VOMITING; Start at 16:00 Pantoprazole 40 mg 40 mg DAILY@06 IV Last administered on 12/28/16 06:17; Admin Dose 40 MG; Start 12/27/16 at 06:00 Fluconazole/ Sodium Chloride 50 ml @ 50 mls/hr Q24H IVPB Last administered on 16:55; Admin Dose 50 MLS/HR; Start 12/26/16 at 17:30 Propofol 100 ml @ 3.12 mls/hr Q12H IV Last administered on 12/28/16 16:27; Admin Dose 21.84 MLS/HR; Start 12/26/16 at 17:00 Norepinephrine/ Dextrose (Levophed/D5W) 500 ml @ 1.87 mls/hr TITRATE IV ; Start 12/26/16 at 20:30 Metoclopramide HCl (Reglan) 10 mg Q8 IV Last administered on 12/28/16 15:53; Admin Dose 10 MG; Start 12/27/16 at 06:00 Acetaminophen (Tylenol Liquid) 650 mg Q4H PRN GTB PAIN AND OR ELEVATED TEMP; Start 12/27/16 at 09:00 Acetazolamide (Diamox) 500 mg DAILY IV Last administered on 12/28/16 09:33; Admin Dose 500 MG; Start 12/27/16 at 11:00 Atorvastatin Calcium (Lipitor) 40 mg HS GTB Last administered on 12/27/16 21: 17; Admin Dose 40 MG; Start 12/27/16 at 21:00 Citalopram Hydrobromide (Celexa) 40 mg DAILY GTB Last administered on 09:33; Admin Dose 40 MG; Start 12/27/16 at 09:00 Fluticasone Propionate (Flonase 0.05% Nasal) 2 spray BID NASAL Last administered on 12/28/16 09:34; Admin Dose 2 SPRAY; Start 12/27/16 at 11:00 Levothyroxine Sodium (Synthroid) 75 mcg DAILY@06 GTB Last administered on 06:18; Admin Dose 75 MCG; Start 12/28/16 at 06:00 Metoprolol Tartrate (Lopressor) 50 mg BID GTB Last administered on 12/28/16 09 :32; Admin Dose 50 MG; Start 12/27/16 at 09:00 Prednisone (Prednisone) 20 mg DAILY GTB Last administered on 12/28/16 09:32; Admin Dose 20 MG; Start 12/27/16 at 09:00 Zolpidem Tartrate (Ambien) 5 mg HS PRN PO INSOMNIA; Start 12/27/16 at 09:00 Acetaminophen/ Hydrocodone Bitart ([place] (5/325)) 1 tab Q6H PRN PO PAIN; Start 12/27/16 at 09:00 IV Flush 10 ml 10 ml PRN PRN IV IV PROTOCOL; Start 12/27/16 at 16:00 Vancomycin HCl 250 ml @ 125 mls/hr Q24H IVPB ; Start 12/28/16 at 18:00 Meropenem (Merrem 500 Mg/ 100 ml (Pmx)) 100 ml @ 200 mls/hr Q12 IVPB ; Start at 21:00 ALYSSA THOMPSON MD Dec 28, 2016 16:59
[2016-12-28] MEDS: SOD CHLORIDE 0.9% 1,000 ML IV SCH (18:14)
[2016-12-28] MEDS: FLUCONAZOLE 100 MG/NS (PMX) 50 ML IVPB SCH (18:14)
[2016-12-28] MEDS: ATORVASTATIN 40 MG TAB GTB SCH (21:33)
[2016-12-29] VITALS (72 sets, daily range): BP systolic 118–189; BP diastolic 59–115; PULSE 70–79; RESP 8–21
[2016-12-29] MEDS: IPRATROPIUM (HFA) 12.9 GM INHALER INH SCH ×4 (01:29→19:29)
[2016-12-29] MEDS: LEVALBUTEROL (HFA) 15 GM INHALER INH SCH ×4 (01:29→19:29)
[2016-12-29] MEDS: PROPOFOL 100 ML IV SCH ×4 (03:13→18:41)
[2016-12-29 04:37] LABS: ADD SCAN DIFF NO
[2016-12-29 04:58] LABS: BASOPHILS % 0.1 % (0.0-2.0); HEMATOCRIT 21.6 % (37.0-47.0); LYMPHOCYTES # 0.9 10^3/ul (0.8-2.9); LYMPHOCYTES % 7.5 % (15.0-51.0); MEAN CORPUSCULAR HGB CONC 32.4 g/dl (32.0-37.0); MEAN CORPUSCULAR VOLUME 98.6 fl (82.0-101.0); MEAN PLATELET VOLUME 11.9 fl (7.4-10.4); MONOCYTE # 0.7 10^3/ul (0.3-0.9); NEUTROPHIL # 10.1 10^3/ul (1.6-7.5); NEUTROPHILS % 85.1 % (39.0-77.0); PLATELET COUNT 247 10^3/UL (140-415); RED BLOOD COUNT 2.19 10^6/ul (4.20-5.40); RED CELL DISTRIBUTION WIDTH 15.8 % (11.5-14.5); WHITE BLOOD COUNT 11.9 10^3/ul (4.8-10.8)
[2016-12-29 05:00] LABS: POTASSIUM 3.2 mmol/L (3.5-5.1)
[2016-12-29 05:03] LABS: CREATININE 0.65 mg/dl (0.44-1.00)
[2016-12-29 05:04] LABS: CALCIUM 8.5 mg/dl (8.4-10.2); PHOSPHORUS 3.1 mg/dl (2.5-4.9)
[2016-12-29] MEDS: LEVOTHYROXINE 75 MCG TAB GTB SCH (05:56)
[2016-12-29] MEDS: PANTOPRAZOLE 40 MG INJ IV SCH (05:56)
[2016-12-29] MEDS: HYDROCORTISONE 100 MG INJ IV SCH ×3 (05:56→21:42)
[2016-12-29] MEDS: METOCLOPRAMIDE 10 MG INJ IV SCH ×3 (05:56→21:41)
[2016-12-29] MEDS: COLISTIMETHATE (25 MG/ML INHAL SYG) NEB SCH ×2 (08:00→19:30)
--- NOTE | 2016-12-29 09:02 | CONS ---
Date/Time of Note Date/Time of Note DATE: 12/29/16 TIME: 08:57 Consult Date/Type/Reason Admit Date/Time Dec 26, 2016 at 15:25 Initial Consult Date 12/26/16 Type of Consultation: med Ordering Provider: TRENT ARREGUIN MD Subjective This is a 66-year-old female with a past medical history of tongue cancer diagnosed 10 years ago status post resection and reconstruction surgery, history of hypertension, history of dysphagia status post PEG who initially presented to an outside hospital in September for shortness of breath. The patient had a prolonged hospital course that was complicated with respiratory failure, intubation, extubation, and reintubation. The patient was eventually trached. The patient also developed acute kidney injury during the hospital course felt to be secondary to aminoglycosides. She was dialyzed for a total of 8 sessions. She has been off dialysis now for approximately 7 weeks. The patient was also septic due to pseudomonas pneumonia and was treated with IV antibiotics and completed her antibiotic course. The patient, during that hospital workup, also developed recurrent nose bleeding, and given her previous history of oral cancer, tongue cancer, a CT scan and MRI were performed which apparently showed concerns for possible recurrence of mass. The patient was not able to be seen by ENT at outside hospital. The patient was eventually stabilized and transferred to [facility]. While at [facility], the patient was clinically stable and was continuing her respiratory care. The patient had an evaluation of her trach. Following the evaluation, the patient developed bleeding from the trach site and apparently aspirated and underwent an arrest. The patient was coded for approximately 14 minutes. The patient was subsequently intubated and transferred to the intensive care unit at [facility]. The patient was not placed on hypothermic protocol. She had evidence of movements of her extremities and was beginning to wake up and open her eyes. While at the intensive care unit, the patient has been critical but stable. There have been no recurrent episodes of hemoptysis. No bleeding. The patient has had no hematochezia. There have been no fevers, no rashes noted. Seen by specialists. POC reviewed with dr chowdary and at bedside. PAST MEDICAL HISTORY: As stated above, history of head and neck oral cancer status post surgical resection, history of chronic dysphagia status post PEG, history of hypothyroidism, history of hypertension, history of adrenal insufficiency, history of acute kidney injury status post hemodialysis, history of atrial fibrillation. HEENT: Head is normocephalic. NECK: Shows dressing over tracheostomy site which is clean, dry, intact. HEART: Regular rate. LUNGS: Show diminished breath sounds at base. Positive rhonchi. ABDOMEN: Soft, nontender to palpation. Positive PEG. EXTREMITIES: Negative for clubbing, cyanosis, no edema. DERMATOLOGIC: No rashes. MUSCULOSKELETAL: No joint effusion. CHEST: The patient has noted crepitus. NEUROLOGIC: Limited exam as the patient is sedated. Objective Vital Signs Date Time Temp Pulse Resp B/P Pulse Ox O2 Delivery O2 Flow Rate FiO2 12/29/16 07:00 72 15 118/74 100 Mechanical Ventilator 12/29/16 05:31 30 12/29/16 04:00 98.4 Intake and Output 12/28/16 12/28/16 12/29/16 15:00 23:00 07:00 Intake Total 941.96 ml 1216.44 ml 984.72 ml Output Total 200 ml 525 ml 225 ml Balance 741.96 ml 691.44 ml 759.72 ml Results/Medications Result Diagram: 12/29/16 0400 12/29/16 0400 Results 24 hrs Laboratory Tests Test 12/29/16 04:00 Anion Gap 11 Basophils # 0.0 Basophils % 0.1 Blood Urea Nitrogen 25 H Calcium Level 8.5 Carbon Dioxide Level 26 Chloride Level 106 Creatinine 0.65 Eosinophils # 0.0 Eosinophils % 0.0 Glucose Level 152 Hematocrit 21.6 L Hemoglobin 7.0 L Lymphocytes # 0.9 Lymphocytes % 7.5 L Magnesium Level 2.0 Mean Corpuscular Hemoglobin 32.0 Mean Corpuscular Hemoglobin Concent 32.4 Mean Corpuscular Volume 98.6 Mean Platelet Volume 11.9 H Monocytes # 0.7 Monocytes % 6.0 Neutrophils # 10.1 H Neutrophils % 85.1 H Nucleated Red Blood Cells # 0.0 Nucleated Red Blood Cells % 0.0 Phosphorus Level 3.1 Platelet Count 247 Potassium Level 3.2 L Red Blood Count 2.19 L Red Cell Distribution Width 15.8 H Sodium Level 140 White Blood Count 11.9 #H Medications Current Medications Hydrocortisone 50 mg 50 mg Q8 IV Last administered on 12/29/16t 05:56; Admin Dose 50 MG; Start 12/26/16 at 16:00 Sodium Chloride (NS) 1,000 ml @ 50 mls/hr Q20H IV Last administered on 18:14; Admin Dose 50 MLS/HR; Start 12/26/16 at 16:00 Ondansetron HCl (Zofran Inj) 4 mg Q6H PRN IV NAUSEA AND/OR VOMITING; Start at 16:00 Pantoprazole 40 mg 40 mg DAILY@06 IV Last administered on 12/29/16 05:56; Admin Dose 40 MG; Start 12/27/16 at 06:00 Fluconazole/ Sodium Chloride 50 ml @ 50 mls/hr Q24H IVPB Last administered on 18:14; Admin Dose 50 MLS/HR; Start 12/26/16 at 17:30 Propofol 100 ml @ 3.12 mls/hr Q12H IV Last administered on 12/29/16 08:22; Admin Dose 21.84 MLS/HR; Start 12/26/16 at 17:00 Norepinephrine/ Dextrose (Levophed/D5W) 500 ml @ 1.87 mls/hr TITRATE IV ; Start 12/26/16 at 20:30 Metoclopramide HCl (Reglan) 10 mg Q8 IV Last administered on 12/29/16 05:56; Admin Dose 10 MG; Start 12/27/16 at 06:00 Acetaminophen (Tylenol Liquid) 650 mg Q4H PRN GTB PAIN AND OR ELEVATED TEMP; Start 12/27/16 at 09:00 Acetazolamide (Diamox) 500 mg DAILY IV Last administered on 12/28/16 09:33; Admin Dose 500 MG; Start 12/27/16 at 11:00 Atorvastatin Calcium (Lipitor) 40 mg HS GTB Last administered on 12/28/16 21: 33; Admin Dose 40 MG; Start 12/27/16 at 21:00 Citalopram Hydrobromide (Celexa) 40 mg DAILY GTB Last administered on 09:33; Admin Dose 40 MG; Start 12/27/16 at 09:00 Fluticasone Propionate (Flonase 0.05% Nasal) 2 spray BID NASAL Last administered on 12/28/16 21:37; Admin Dose 2 SPRAY; Start 12/27/16 at 11:00 Levothyroxine Sodium (Synthroid) 75 mcg DAILY@06 GTB Last administered on 05:56; Admin Dose 75 MCG; Start 12/28/16 at 06:00 Metoprolol Tartrate (Lopressor) 50 mg BID GTB Last administered on 12/28/16 21 :34; Admin Dose 50 MG; Start 12/27/16 at 09:00 Prednisone (Prednisone) 20 mg DAILY GTB Last administered on 12/28/16 09:32; Admin Dose 20 MG; Start 12/27/16 at 09:00 Zolpidem Tartrate (Ambien) 5 mg HS PRN PO INSOMNIA; Start 12/27/16 at 09:00 Acetaminophen/ Hydrocodone Bitart ([place] (5/325)) 1 tab Q6H PRN PO PAIN; Start 12/27/16 at 09:00 IV Flush 10 ml 10 ml PRN PRN IV IV PROTOCOL; Start 12/27/16 at 16:00 Vancomycin HCl 250 ml @ 125 mls/hr Q24H IVPB Last administered on 12/28/16 20 :02; Admin Dose 125 MLS/HR; Start 12/28/16 at 18:00 Meropenem (Merrem 500 Mg/ 100 ml (Pmx)) 100 ml @ 200 mls/hr Q12 IVPB Last administered on 12/28/16 21:37; Admin Dose 200 MLS/HR; Start 12/28/16 at 21:00 Assessment/Plan Chief Complaint/Hosp Course 1. Status post code arrest. Etiology may be secondary to aspiration, hypoxemia. The patient had spontaneous return of circulation. Currently, the patient is critical but hemodynamically stable. Plan at this point is to follow up with Cardiology, Dr. Garcia, for further evaluation. We will continue to monitor closely. 2. Ventilator dependent respiratory failure. The patient is status post intubation. Currently stable. ABG has been reviewed. Vent settings have been reviewed. We will continue to monitor. Follow up with Pulmonary. Push for weaning. 3. Acute tracheal bleed. Underlying etiology is unclear. The patient's tracheostomy was removed. We will place an ENT consult for further evaluation with Dr. Carpio and monitor closely. 4. Sepsis secondary to likely aspiration pneumonia. We will continue current broad spectrum antibiotics. Follow up cultures. Follow up with Infectious Disease. 5. History of adrenal insufficiency. The patient is currently on stress dose of hydrocortisone. We will taper off over the next 24 to 48 hours and monitor closely. 6. Leukocytosis. Etiology is likely multifactorial secondary to steroids, sepsis. We will continue to taper off hydrocortisone. Continue antibiotic therapy. 7. History of tongue cancer status post surgical resection. The possibility of recurrence at the outside hospital. The patient is being followed by ENT. We will follow up recommendations. 8. Paroxysmal atrial fibrillation, currently in sinus rhythm. Continue to monitor. Continue medical management. 9. Hypothyroidism. We will resume Synthroid. 10. Hypertension. Blood pressure is currently normotensive. Continue to monitor. 11. Dysphagia, status post PEG. The patient is pending GI evaluation with Dr. Higuera for G-tube exchange. 12. Anemia of chronic disease. Continue to monitor hemoglobin and hematocrit levels. 13. History of volume overload, diastolic heart failure. We will continue to monitor I's and O's closely. We will decrease rate of IV fluids. 14. History of critical care myopathy. Continue to monitor. 15. Gastrointestinal and deep venous thrombosis prophylaxis. Continue proton pump inhibitor and sequential leg squeezers. Please note I spent over 40 minutes of critical care time with this patient. Problems: HILARY RUBIO MD Dec 29, 2016 09:02
[2016-12-29] MEDS: CITALOPRAM 20 MG TAB GTB SCH (09:07)
[2016-12-29] MEDS: METOPROLOL 50 MG TAB GTB SCH ×2 (09:07→21:00)
[2016-12-29] MEDS: MEROPENEM 500 MG/100 ML (PMX) 100 ML IVPB SCH ×2 (09:08→21:03)
[2016-12-29] MEDS: FLUTICASONE 0.05% 16 GM NAS SPRAY NASAL SCH ×2 (09:08→21:00)
[2016-12-29] MEDS: predniSONE 20 MG TAB GTB SCH (09:08)
[2016-12-29] MEDS: ACETAZOLAMIDE 500 MG INJ IV SCH (09:08)
--- NOTE | 2016-12-29 09:17 | CONS ---
Date/Time of Note Date/Time of Note DATE: 12/29/16 TIME: 09:07 Assessment/Plan Assessment/Plan Chief Complaint/Hosp Course ASSESSMENT AND PLAN: This is a 66-year-old female who presents with: Anemia n -cytic with increased RDW, WITH SIGNIFICANT DROP H/H DURING HOSPITALIZATION HX ANEMIA of chronic disease. Continue to monitor hemoglobin and hematocrit levels. TRANSFUSE TO KEEP HB ABOVE 8 OBSERVE FOR BLEEDING AND HEMOLYSIS PROCEED WITH W-UP History of tongue cancer status post surgical resection. The possibility of recurrence at the outside hospital ENT eval. / F-UP Leukocytosis. Etiology is likely multifactorial secondary to steroids, sepsis. Status post code arrest. Etiology may be secondary to aspiration, hypoxemia. The patient had spontaneous return of circulation. Ventilator dependent respiratory failure. The patient is status post intubation. Currently stable. ABG has been reviewed. Vent settings have been reviewed. We will continue to monitor. Follow up with Pulmonary. Acute tracheal bleed. Underlying etiology is unclear. The patient's tracheostomy was removed. ENT consult for further evaluation with Dr. Carpio and monitor closely. Sepsis secondary to likely aspiration pneumonia. We will continue current broad spectrum antibiotics. Follow up cultures. Follow up with Infectious Disease. History of adrenal insufficiency. post stress dose of hydrocortisone. Paroxysmal atrial fibrillation, currently in sinus rhythm. Continue to monitor. Continue medical management. Hypothyroidism. ON Synthroid. Hypertension. Blood pressure is currently normotensive. Continue to monitor. Dysphagia, status post PEG. History of volume overload, diastolic heart failure. History of critical care myopathy. Continue to monitor. Gastrointestinal and deep venous thrombosis prophylaxis. Continue proton pump inhibitor and sequential leg squeezers. Problems: Consultation Date/Type/Reason Admit Date/Time Dec 26, 2016 at 15:25 Date of Consultation: Dec 29, 2016 Type of Consultation: hemeon Reason for Consultation anemia Referring Provider: HILARY RUBIO MD Hx of Present Illness This is a 66-year-old female with a past medical history of tongue cancer diagnosed 10 years ago status post resection and reconstruction surgery, history of hypertension, history of dysphagia status post PEG who initially presented to an outside hospital in September for shortness of breath. The patient at that time was diagnosed with bilateral healthcare-associated pneumonia secondary to pseudomonas. The patient also, during that hospital course, had intermittent nose bleeding. The patient had a prolonged hospital course that was complicated with respiratory failure, intubation, extubation, and reintubation. The patient was eventually trached. The patient also developed acute kidney injury during the hospital course felt to be secondary to aminoglycosides. She was dialyzed for a total of 8 sessions. She has been off dialysis now for approximately 7 weeks. The patient was also septic due to pseudomonas pneumonia and was treated with IV antibiotics and completed her antibiotic course. The patient, during that hospital workup, also developed recurrent nose bleeding, and given her previous history of oral cancer, tongue cancer, a CT scan and MRI were performed which apparently showed concerns for possible recurrence of mass. The patient was not able to be seen by ENT at outside hospital. The patient was eventually stabilized and transferred to [facility] [place]. While at [facility], the patient was clinically stable and was continuing her respiratory care. The patient yesterday had an evaluation of her trach. Following the evaluation, the patient developed bleeding from the trach site and apparently aspirated and underwent a code arrest. The patient was coded for approximately 14 minutes. The patient was subsequently intubated and transferred to the intensive care unit at [facility]. The patient was not placed on hypothermic protocol. She had evidence of movements of her extremities and was beginning to wake up and open her eyes. While at the intensive care unit, the patient has been critical but stable. There have been no recurrent episodes of hemoptysis. No bleeding. The patient has had no hematochezia. There have been no fevers, no rashes noted. i was asked to provide hemeon consult Upon my evaluation at this time, the patient is sedated, intubated, and in no apparent distress. PAST MEDICAL HISTORY: As stated above, history of head and neck oral cancer status post surgical resection ____ years ago, history of chronic dysphagia status post PEG, history of hypothyroidism, history of hypertension, history of adrenal insufficiency, history of acute kidney injury status post hemodialysis, history of atrial fibrillation. PAST SURGICAL HISTORY: Status post PEG, status post tracheostomy, status post oral surgery. SOCIAL HISTORY: Does not drink, smoke, or do drugs. FAMILY HISTORY: Noncontributory. ALLERGIES: NO KNOWN DRUG ALLERGIES. MEDICATIONS: Have been reviewed. REVIEW OF SYSTEMS: A 14-point review of systems was conducted. Pertinent positives as stated in HPI; otherwise negative. Constitutional: improved Psychological: nl mood/affect, no complaints Past Medical History Medical History: other (Unable to obtain) Past Surgical History Past Surgical Hx: other (Unable to obtain) Social History Drug Use: other (Unable to obtain) Exam/Review of Systems Vital Signs Vitals Vital Signs Date Time Temp Pulse Resp B/P Pulse Ox O2 Delivery O2 Flow Rate FiO2 12/29/16 07:00 72 15 118/74 100 Mechanical Ventilator 12/29/16 05:31 30 12/29/16 04:00 98.4 Intake and Output 12/28/16 12/28/16 12/29/16 15:00 23:00 07:00 Intake Total 941.96 ml 1216.44 ml 984.72 ml Output Total 200 ml 525 ml 225 ml Balance 741.96 ml 691.44 ml 759.72 ml Exam PHYSICAL EXAMINATION: HEENT: Head is normocephalic. pt is intubated unable to perform oral exam NECK: Shows dressing over tracheostomy site which is clean, dry, intact. HEART: Regular rate. LUNGS: Show diminished breath sounds at base. Positive rhonchi. ABDOMEN: Soft, nontender to palpation. Positive PEG. EXTREMITIES: Negative for clubbing, cyanosis, no edema. DERMATOLOGIC: No rashes. MUSCULOSKELETAL: No joint effusion. CHEST: The patient has noted crepitus. NEUROLOGIC: Limited exam as the patient is sedated. Results Result Diagram: 12/29/16 0400 12/29/16 0400 Results 24 hrs Laboratory Tests Test 12/29/16 04:00 Anion Gap 11 Basophils # 0.0 Basophils % 0.1 Blood Urea Nitrogen 25 H Calcium Level 8.5 Carbon Dioxide Level 26 Chloride Level 106 Creatinine 0.65 Eosinophils # 0.0 Eosinophils % 0.0 Glucose Level 152 Hematocrit 21.6 L Hemoglobin 7.0 L Lymphocytes # 0.9 Lymphocytes % 7.5 L Magnesium Level 2.0 Mean Corpuscular Hemoglobin 32.0 Mean Corpuscular Hemoglobin Concent 32.4 Mean Corpuscular Volume 98.6 Mean Platelet Volume 11.9 H Monocytes # 0.7 Monocytes % 6.0 Neutrophils # 10.1 H Neutrophils % 85.1 H Nucleated Red Blood Cells # 0.0 Nucleated Red Blood Cells % 0.0 Phosphorus Level 3.1 Platelet Count 247 Potassium Level 3.2 L Red Blood Count 2.19 L Red Cell Distribution Width 15.8 H Sodium Level 140 White Blood Count 11.9 #H Medications Medications Current Medications Hydrocortisone 50 mg 50 mg Q8 IV Last administered on 12/29/16 05:56; Admin Dose 50 MG; Start 12/26/16 at 16:00 Sodium Chloride (NS) 1,000 ml @ 50 mls/hr Q20H IV Last administered on 18:14; Admin Dose 50 MLS/HR; Start 12/26/16 at 16:00 Ondansetron HCl (Zofran Inj) 4 mg Q6H PRN IV NAUSEA AND/OR VOMITING; Start at 16:00 Pantoprazole 40 mg 40 mg DAILY@06 IV Last administered on 12/29/16 05:56; Admin Dose 40 MG; Start 12/27/16 at 06:00 Fluconazole/ Sodium Chloride 50 ml @ 50 mls/hr Q24H IVPB Last administered on 18:14; Admin Dose 50 MLS/HR; Start 12/26/16 at 17:30 Propofol 100 ml @ 3.12 mls/hr Q12H IV Last administered on 12/29/16 08:22; Admin Dose 21.84 MLS/HR; Start 12/26/16 at 17:00 Norepinephrine/ Dextrose (Levophed/D5W) 500 ml @ 1.87 mls/hr TITRATE IV ; Start 12/26/16 at 20:30 Metoclopramide HCl (Reglan) 10 mg Q8 IV Last administered on 12/29/16 05:56; Admin Dose 10 MG; Start 12/27/16 at 06:00 Acetaminophen (Tylenol Liquid) 650 mg Q4H PRN GTB PAIN AND OR ELEVATED TEMP; Start 12/27/16 at 09:00 Acetazolamide (Diamox) 500 mg DAILY IV Last administered on 12/28/16 09:33; Admin Dose 500 MG; Start 12/27/16 at 11:00 Atorvastatin Calcium (Lipitor) 40 mg HS GTB Last administered on 12/28/16 21: 33; Admin Dose 40 MG; Start 12/27/16 at 21:00 Citalopram Hydrobromide (Celexa) 40 mg DAILY GTB Last administered on 09:33; Admin Dose 40 MG; Start 12/27/16 at 09:00 Fluticasone Propionate (Flonase 0.05% Nasal) 2 spray BID NASAL Last administered on 12/28/16 21:37; Admin Dose 2 SPRAY; Start 12/27/16 at 11:00 Levothyroxine Sodium (Synthroid) 75 mcg DAILY@06 GTB Last administered on 05:56; Admin Dose 75 MCG; Start 12/28/16 at 06:00 Metoprolol Tartrate (Lopressor) 50 mg BID GTB Last administered on 12/28/16 21 :34; Admin Dose 50 MG; Start 12/27/16 at 09:00 Prednisone (Prednisone) 20 mg DAILY GTB Last administered on 12/28/16 09:32; Admin Dose 20 MG; Start 12/27/16 at 09:00 Zolpidem Tartrate (Ambien) 5 mg HS PRN PO INSOMNIA; Start 12/27/16 at 09:00 Acetaminophen/ Hydrocodone Bitart ([place] (5/325)) 1 tab Q6H PRN PO PAIN; Start 12/27/16 at 09:00 IV Flush 10 ml 10 ml PRN PRN IV IV PROTOCOL; Start 12/27/16 at 16:00 Vancomycin HCl 250 ml @ 125 mls/hr Q24H IVPB Last administered on 12/28/16 20 :02; Admin Dose 125 MLS/HR; Start 12/28/16 at 18:00 Meropenem (Merrem 500 Mg/ 100 ml (Pmx)) 100 ml @ 200 mls/hr Q12 IVPB Last administered on 12/28/16 21:37; Admin Dose 200 MLS/HR; Start 12/28/16 at 21:00 FREDERICK DAIGLE MD Dec 29, 2016 09:17
--- NOTE | 2016-12-29 09:41 | RADRPT ---
PROCEDURE: CT soft tissue neck an chest with intravenous contrast. CLINICAL INDICATION: Tongue cancer with bleeding. Evaluate for subcutaneous emphysema. TECHNIQUE: The study was performed utilizing a high-resolution multichannel multidetector CT scann . Direct thin section helically acquired axial sections were obtained through the neck after the u neventful intravenous administration of 90 cc of Omnipaque-300. Coronal and sagittal reformations we re obtained. The images were reviewed on a PACS workstation. The total CTDIvol is 9.32 mGy and the D LP is 482 mGy-cm. One or more of the following dose reduction techniques were used: Automated exposure control. Adjustment of the mA and/or kV according to patient size. Use of iterative reconstruction technique. COMPARISON: No. FINDINGS: CT scan of the neck with IV contrast: The visible portions of brain parenchyma the base of the skull is normal. The brain parenchyma is n ormal with no brain metastasis identified in the posterior fossa. The visible portions of the paranasal sinuses are clear. The basilar artery is unremarkable. There is a dominant left vertebral and nondominant right verteb ral artery both of which are patent. There are vascular calcifications in the proximal portion of t he right internal carotid artery in the distal right carotid bulb. There are clips in the right submandibular area and upper right neck from surgery. There is subcuta neous emphysema over the dorsal neck and extending into the area of the thoracic inlet. An endotracheal tube is in place with its tip abutting the sammy. This should be withdrawn about 4 cm for better positioning. There is a mass in the midline of the tongue measuring up to 3.6 cm AP by 2.2 cm transverse involvin g the right and left cm process muscles extending mostly left of midline. There is tumor involving the right parapharyngeal space without displacement of the endotracheal tube. There are clips in the right submandibular area. There are clips from prior bilateral parotid resec tions there are metal clips dorsal to the mentum of the mandible. No enlarged cervical lymph node is identified A 1.1 cm solid mass is noted in the ventral mid right lobe of the thyroid gland. The left lobe of t he thyroid and is identified and as a 2.3 mm lesion to small to characterize. A thyroid sonogram is recommended. No enlarged supraclavicular lymph nodes are identified. No bone metastasis identified. There are degenerative osteophytes in the thoracic spine with narrow ing of the atlanto-axial joint space. CT scan of the chest with IV contrast: The heart is enlarged. A PICC line catheter enters via the right arm with its tip in the right atri um. There is a pericardial effusion. There are vascular calcifications in the proximal left common carotid artery, thoracic and upper abd ominal aorta. There is a 20% left pneumothorax with atelectasis in the ventral lingula. There are bilateral pleura l effusions. There is plate-like atelectasis in the medial aspect of the right lower lobe. There is a to 3% media l right pneumothorax. There are bibasilar ground-glass infiltrates. There are confluent patchy infiltrates in the periphe ry of the right lower lobe. There is a 2.2 mm calcified granuloma abutting the pleural surface in the left upper lobe. There is a 8.5 x 6.3 by 7.5 mm pleural based density suspicious for a nodule with adjacent scarring or atelectasis in the right upper lobe. There is an enlarged 1.2 cm right paratracheal lymph node in the superior mediastinum. There is a 8 mm lymph node ventral to the are right mainstem bronchus. There is mediastinal fluid to the left of the ascending aorta superior to the pulmonary artery outfl ow tracts. There is pneumomediastinum. There are calcified left hilar lymph nodes. There is pneumoperitoneum. This could be the result of recent abdominal surgery or perforated intra -abdominal organs. There is extensive anasarca. There is a small amount of ascites adjacent to the spleen. The spleen is otherwise normal. The vis ible portions of the liver are normal. The visible portions of the stomach are unremarkable. The pancreas is unremarkable as visualized. The adrenal glands and visible portions of the kidneys are normal. No bone metastasis or acute bony fracture is noted. There are degenerative osteophytes in the cervi rinku and thoracic spine. IMPRESSION: 1. The endotracheal tube is abutting the sammy and should be withdrawn 3-4 cm for better positioni ng. 2. Extensive subcutaneous emphysema is noted in the neck and around the circumference of the chest. 3. Status post surgery with clips identified in the right neck and left side of the neck and subman dibular areas with a tumor mass identified in the midline in the area of the genioglossus muscles kirk spicious for recurrent tumor. This measures up to 3.6 cm AP by 2.6 cm transverse. The full extent of the tumor would be better defined on an MRI with contrast. 4. 1 cm nodule inferior right lobe of thyroid gland with 2.3 mm smaller nodule inferior left lobe o f thyroid gland would be better characterized with ultrasound. 5. Anasarca. 6. Critical finding: Pneumoperitoneum. This may reflect earlier surgery or can relate to perforat ed viscus. Clinical correlation is needed. 7. 2.2 mm calcified granuloma along the pleural surface in the left upper lobe. 8.5 x 6.3 x 7.5 mm density suspicious for a nodule with adjacent scarring or atelectasis in the right upper lobe. Fol low-up imaging recommended to confirm stability. 8. PICC line catheter entering the right arm with the tip in the distal right atrium. 9. Cardiomegaly with pericardial effusion. 10. Fluid in the middle mediastinum adjacent to the pulmonary artery and dorsal to the ascending ao rta. 11. Small pleural effusions with asymmetric ground-glass infiltrates in the lungs. 12. 25% anterior left pneumothorax. 13. 2% medial right pneumothorax. 14. Subsegmental atelectasis in the lingula, right lower lobe and left lower lobe. 15. Calcified left perihilar lymph nodes. 16. A small amount of ascitic fluid is noted adjacent to the spleen. 17. Findings were phoned to intensive care nurse Laura Bonner. RPTAT:AAJJ Physician Alison Date Time Electronically viewed and signed by Physician Alison on 12/29/2016 09:40 LOAN/
[2016-12-29 10:10] LABS: RETICULOCYTE COUNT % 1.9 % (0.5-1.5)
[2016-12-29 10:18] LABS: LACTATE DEHYDROGENASE 557 IU/L (313-618); URIC ACID 3.4 mg/dl (3.1-7.9)
[2016-12-29 10:19] LABS: IRON 59 ug/dl (35-150)
--- NOTE | 2016-12-29 10:29 | RADRPT ---
PROCEDURE: XR Chest. CLINICAL INDICATION: 66-year-old female with CHF/pneumonia. TECHNIQUE: Single frontal view of the chest was obtained COMPARISON: Chest x-ray 12/27/2016 03:39 p.m. FINDINGS: The soft tissues are normal. There are osteophytes in the thoracic spine. The the heart is enlarge d. The cardiomediastinal silhouette is normal. The pulmonary vasculature is increased. The hilar s tructures are normal. There are vascular calcifications aortic arch. There are bilateral interstitia l infiltrates with fluid in the right pleural space. An endotracheal tube is abutting the sammy an d should be withdrawn 4 cm for better positioning near the T3-4. The costophrenic angles are normal . 78. The same as present the supraclavicular areas on the right chest wall. No acute bony fractur e is noted. No pneumothorax is identified at this time. Trace pneumomediastinum is noted. IMPRESSION: 1. Trace pneumomediastinum versus medial left pneumothorax with air noted adjacent to the left heart border. 2. Subcutaneous emphysema in the supraclavicular areas along the right chest wall. 3. Cardiomegaly with interstitial perihilar infiltrates and a right pleural effusion. Findings may reflect interstitial for a edema. 4. The endotracheal tube is well placed abutting the sammy and should be withdrawn about 4 cm. RPTAT:AAJJ Physician Alison Date Time Electronically viewed and signed by Physician Alison on 12/29/2016 10:28 /
[2016-12-29 10:31] LABS: TOTAL IRON BINDING CAPACITY 235 ug/dl (241-421)
[2016-12-29] MEDS ORDERED: BARIUM SULF 2% 450 ML BTL (BERRY SMOOTHIE) PO ONE (11:30)
[2016-12-29 11:34] LABS: FOLATE > 20.0 ng/ml (2.8-20.0)
--- NOTE | 2016-12-29 11:50 | PN ---
DATE: 12/29/2016 SUBJECTIVE: The patient is more alert today. She makes eye contact, follows simple commands, and i s orally intubated. OBJECTIVE: VITAL SIGNS: Temperature 98, pulse is 75, blood pressure 159/88, O2 saturation 96%, FIO2 of 40%. HEENT: Orally intubated. Moist mucous membranes. Pupils equal and reactive to light. CARDIAC: S1, S2, no added sounds or murmurs. CHEST: Diminished air entry both lung bases. ABDOMEN: Soft, nontender. No guarding or rebound. EXTREMITIES: No cyanosis, clubbing, edema. NEUROLOGIC: Generalized weakness but no focal deficits. LABORATORY DATA: White count 11.9, hemoglobin 7, platelets 247. BUN 25, creatinine 0.65. Chest x- ray was reviewed and shows trace pneumomediastinum, left pneumothorax, subcutaneous emphysema. CT o f the neck and chest show extensive subcutaneous emphysema, 25% anterior left pneumothorax, 2% media l right pneumothorax. Findings suggestive of pneumoperitoneum. IMPRESSION: 1. Vent dependent respiratory failure. 2. New finding suggestive of pneumothorax, possibly following recent intubation; however, currently stable. No signs of progression or hemodynamically compromise requiring chest tube placement. 3. Pneumoperitoneum, concerning for possible perforated bowel. 4. Anemia. Consider transfusion of packed red blood cells. 5. Resolving encephalopathy. 6. Trach site bleeding per ENT recommendations. PLAN: 1. Continue mechanical ventilation. 2. Hold off chest tubes for now. 3. Repeat chest x-ray in a.m. 4. Transfusion of packed red blood cells. 5. Surgery evaluation for pneumoperitoneum. 6. DVT and GI prophylaxis. Dictated By: DARWIN STEVENS/BALDO Conf#: [id number] DID#: [id number]
[2016-12-29] MEDS: SOD CHLORIDE 0.9% 1,000 ML IV SCH (12:50)
[2016-12-29] MEDS: HYDROCODONE/APAP (5/325) TAB PO PRN (13:52)
[2016-12-29] MEDS ORDERED: IOHEXOL 14.3 MG(I)/ML (ADULT) BTL PO ONE (16:30)
[2016-12-29] MEDS ORDERED: SOD CHLORIDE 0.9% 100 ML ONE (16:31)
[2016-12-29] MEDS ORDERED: IODIXANOL LOCM 100 ML BTL ONE (16:31)
[2016-12-29] MEDS: NITROGLYCERIN 2% 1 GM OINT PKT TD SCH (17:47)
[2016-12-29] MEDS: FLUCONAZOLE 100 MG/NS (PMX) 50 ML IVPB SCH (17:47)
[2016-12-29] MEDS: VANCOMYCIN 1 GM in NS 250 ML IVPB SCH (17:54)
--- NOTE | 2016-12-29 18:00 | RADRPT ---
PROCEDURE: CT Abdomen and Pelvis with contrast. CLINICAL INDICATION: Abdomen and pelvis pain. TECHNIQUE: CT scan of the abdomen and pelvis with contrast was performed. The patient was scanned following the uncomplicated intravenous administration of 100 cc of Visipaque 320. Coronal and sag ittal reformatted images were obtained from the axial source images. Images were reviewed on a high- resolution PACS workstation. Total exam DLP is 827.48 mGy-cm. CTDIvol is 14.66 mGy. One or more o f the following dose reduction techniques were used: Automated exposure control, adjustment of the m A and/or kV according to patient size, use of iterative reconstruction technique. COMPARISON: CT scan of the chest dated 12/28/2016. FINDINGS: There is mild atelectasis at both lung bases posteriorly. The lung bases are otherwise normal. The re is no pleural effusion. There is a small pericardial effusion. There is a small left pneumothor ax measuring approximately 10%. There is no right pneumothorax. The heart size is normal. There is a left arm PICC line with the tip in the cavoatrial junction region. Extensive subcutaneous emphyse ma is present bilaterally. The liver is normal in size and attenuation. There is no focal hepatic lesion. The gallbladder is contracted but otherwise unremarkable. A gastrostomy tube is in satisfactory pos ition in the stomach. The spleen is normal in size. There is no focal splenic lesion. Both adrenals are normal with no enlargement or mass. The pancreas is unremarkable with no mass or evidence of pancreatitis. Both kidneys demonstrate normal contrast enhancement. There is no renal mass or hydronephrosis. The abdominal aorta is not dilated. There is calcification in the aorta consistent with atheroscler osis. There is no retroperitoneal lymphadenopathy or mass. There is no pelvic lymphadenopathy or mass. There is a Latif catheter in the bladder. The distal ureters are unremarkable. The periappendiceal region is unremarkable with no evidence of appendicitis. The bowel and mesentery are normal. There is a small amount of free fluid in the pelvis. There is moderate free air in the abdomen as s een on prior chest radiographs. There are degenerative changes of the spine. There is no fracture or lytic lesion. IMPRESSION: 1. Mild atelectasis at the lung bases posteriorly. 2. Small pericardial effusion. 3. Small left pneumothorax measuring approximately 10%. 4. Left arm PICC line in satisfactory position. 5. Extensive subcutaneous emphysema and pneumoperitoneum, consistent with barotrauma as seen previo usly. 6. Contracted gallbladder. 7. Gastrostomy tube in satisfactory position. 8. Atherosclerosis. 9. Latif catheter in the bladder. 10. Small amount of free fluid. 11. Degenerative changes of the spine. RPTAT: QQ .Guero Guadalupe MD, MD Date Time Electronically viewed and signed by .Guero Guadalupe MD, MD on 12/29/2016 18:00 .R/
--- NOTE | 2016-12-29 18:31 | PN ---
DATE: 12/29/2016 SUBJECTIVE: The patient remains hemodynamically stable, intubated, sedated, in no distress, no feve rs. WBC today 11.9, platelets 247,000, neutrophils 85.1, BUN 25, creatinine 0.65. MICROBIOLOGY: All cultures remain negative. DIAGNOSTICS: Chest x-ray revealed trace pneumomediastinum versus the medial left pneumothorax. Sub cutaneous emphysema in the supraclavicular areas along the right chest wall, cardiomegaly with perih ilar infiltrate and right pleural effusion. Soft tissue neck CT revealed pneumoperitoneum. Left si de of the neck submandibular area was a tumor mass identified in the middle of the muscle, suspiciou s for recurrent tumor. INDWELLINGS: Endotracheal tube, NG tube, Latif catheter, PICC line, placed on 12/27/2016. ANTIMICROBIALS: Patient is on: 1. Vancomycin. 2. Merrem. 3. Fluconazole. PHYSICAL EXAMINATION: GENERAL: This is a fragile, elderly woman is lying comfortably in bed. HEENT: Head atraumatic, normocephalic. Sclerae anicteric. Buccal mucosa dry. NECK: Supple. Trachea is covered with a dressing Chest rise symmetrical. Breath sounds with scat tered crackles. HEART: S1, S2. ABDOMEN: Soft, bowel tones present. EXTREMITIES: Without cyanosis. ASSESSMENT: 1. Pneumoperitoneum, questionable perforated viscus. 2. Status post cardiopulmonary arrest. 3. Acute respiratory failure, intubated. 4. Sepsis with probable aspiration pneumonia. 5. Urinary tract infection, cultures at [facility] grew yeast and enterococcus. 6. Vancomycin-resistant Enterococcus stool colonization. 7. History of oral cancer. PLAN: The patient remains hemodynamically stable. White blood cell count tracing down. She is tracy ng followed by multiple consultants. Continue on current antibiotics, pending surgical evaluation. Dictated By: LORETO MCKEON DIRECTOR [employer] for MARY LEONARDO/BALDO Conf#: [id number] DID#: [id number]
[2016-12-29] MEDS: ATORVASTATIN 40 MG TAB GTB SCH (21:00)
--- NOTE | 2016-12-29 21:10 | CONS ---
DATE OF ADMISSION: 12/26/2016 DATE OF CONSULTATION: TYPE OF CONSULTATION: Gastroenterology. To Dr. Valderrama, SUBJECTIVE: Patient is to be intubated on vent and sedated. OBJECTIVE: VITAL SIGNS: Stable. ABDOMEN: Benign. CARDIOVASCULAR: Grossly within normal limits. CENTRAL NERVOUS SYSTEM: The patient is sedated. Patient's hematocrit dropped down to 21.6. WBC is 11.9. CT abdomen and chest revealed emphysema an d a pneumoperitoneum from barotrauma. PLAN: Transfuse the patient, monitor hemoglobin and hematocrit. continue feeding and will mo nitor H and H. At this point, there is no evidence of active gastrointestinal bleeding. Dictated By: ALYSSA INGRAM/BALDO Conf#: [id number] DID#: [id number]
--- NOTE | 2016-12-29 21:25 | CONS ---
DATE OF ADMISSION: 12/26/2016 DATE OF CONSULTATION: 12/29/2016 CHIEF COMPLAINT: 1. Pneumoperitoneum. 2. Pneumomediastinum. 3. Pneumothorax. 4. Subcutaneous emphysema. 5. Recent code. 6. Recent PEG. 7. Anemia. 8. Leukocytosis. 9. Abnormal LFTs. HISTORY OF PRESENT ILLNESS: Miroslava Glasgow is a 66-year-old female with multiple significant comorb idities who initially had presented to an outside hospital with shortness of breath in September and was diagnosed with bilateral healthcare-associated pneumonia secondary to pseudomonas and eventually had a prolonged hospital course complicated with respiratory failure, intubation, extubation, and r eintubation, and eventual trach placement. The patient also had acute kidney injury due to aminogly cosides and received dialysis, which has been off x7 weeks. At some point, she developed nosebleeds . With her history of oral cancer that was previously treated and repeat imaging identified a possi ble recurrence of the mass. The patient had been subsequently transferred to [place] for further car e and treatment. The patient had evaluation of the trach and started having bleeding from the site and aspiration, and code arrest. She was coded for approximately 14 minutes, subsequently intubated , and transferred to intensive care unit for further care and treatment. She had significant leukoc ytosis, which is improving. At some point, she was on pressors, but they are off currently. There are no episodes of hemoptysis or any other bleeding. No fevers or chills. No cough. No seizure. No blood per rectum. No vomiting. The patient has since also developed subcutaneous emphysema with pneumothorax and pneumoperitoneum, which were read on the x-ray on the . She had a PEG placed on the . Surgical consult is obtained at this point to further evaluate the findings from the 10 18. Information is mostly obtained from chart and staff. PAST MEDICAL HISTORY: 1. Oral cancer history. 2. Chronic dysphagia. 3. Hyperthyroidism. 4. Hypertension history. 5. Adrenal insufficiency, on steroids. 6. Acute kidney injury history. 7. Atrial fibrillation. 8. Code arrest. 9. Bleeding from the trachea. 10. Anemia. 11. Aspiration pneumonia. 12. Respiratory failure with vent dependence. 13. Leukocytosis. 14. Volume overload. 15. Electrolyte abnormalities. 16. Pneumoperitoneum. 17. Pneumomediastinum. 18. Pneumothorax. 19. Subcutaneous emphysema. PAST SURGICAL HISTORY: 1. PEG. 2. Trach. 3. Oral cancer surgery. SOCIAL HISTORY: No alcohol, drugs, or tobacco. FAMILY HISTORY: Noncontributory. ALLERGIES: NONE. MEDICATIONS: As per MAR. REVIEW OF SYSTEMS: A 12-point of systems negative unless addressed in HPI. PHYSICAL EXAMINATION: VITAL SIGNS: Temperature is 97.5, pulse 70s, blood pressure 144/80, saturating 100% on 0.3 FIO2. GENERAL: Ventilated. Noncommunicative. BMI of 30. HEENT: Pupils are sluggish. No scleral icterus. Mucous membranes are moist. NECK: Trach in place. Minimal crepitus. JVD not visible. PULMONARY: Minimally coarse. Normal effort. No wheezing. CARDIAC: S1, S2 present. ABDOMEN: Soft and minimally tender to deep palpation with grimacing. PEG in place. VASCULAR: Capillary refill is 2 seconds. NEUROLOGIC: Does not follow commands. PSYCHIATRIC: Noncommunicative. SKIN: No rashes, no jaundice. Diffuse edema. LYMPHATICS: No inguinal or cervical lymph nodes. LABORATORY AND RADIOGRAPHIC: As per chart and HPI. ASSESSMENT AND PLAN: Miroslava Glasgow is a 66-year-old female with multiple significant comorbidities . 1. Pneumoperitoneum. I doubt this is from an abdominal source; however, differential diagnosis inc ludes air from feeding tube placement versus intestinal rupture versus esophageal rupture versus tra cheal rupture or leak from the tracheostomy versus barotrauma from pneumothorax. Will obtain CT rc st, abdomen, and pelvis with oral and IV contrast to further investigate the sources and rule out so me of the possibilities. Continue supportive measures and antibiotics and will follow closely with you. The findings have been since the , which is right after her code when the trach was remove d and an ET tube was placed. The findings are also prior to the placement of the percutaneous endos copic gastrostomy. 2. Pneumomediastinum, pneumothorax, and subcutaneous emphysema, probably secondary to above process . Thoracic surgery consultation obtained by primary. 3. Code arrest. Probably aspiration. Continue medical optimization and pulmonary support. Contin ue antibiotics. 4. History of oral cancer status post resection with possible recurrence. Will defer to ENT. No a ctive bleeding at this time. 5. Anemia, multifactorial. Continue close monitoring and transfuse as needed. 6. Leukocytosis, possible multifactorial with adrenal insufficiency requiring steroids versus acute infectious process, and/or systemic inflammatory response syndrome. Continue antibiotics, supporti ve care, and steroids, weaning per medical service. 7. History of atrial fibrillation, currently in sinus. 8. Dysphagia, status post percutaneous endoscopic gastrostomy on feedings, which are held. However , if the CT is negative for intraabdominal source, may resume feeding. 9. History of hypertension. Continue medical optimization. Thank you very much for consulting me in this patient's care. Dictated By: PATRICK PANDYA/BALDO Conf#: [id number] DID#: [id number] CC: NINA MACIEL DO;*EndCC*
--- NOTE | 2016-12-29 21:28 | RADRPT ---
PROCEDURE: XR Chest. CLINICAL INDICATION: Check endotracheal tube position. TECHNIQUE: Single frontal view. COMPARISON: 12/29/2016. 1749 hours. FINDINGS: The endotracheal tube has been retracted and the tip is now 3.8 cm above the sammy and at the level of the clavicle heads. The left arm PICC line remains in satisfactory position. There is bilatera l subcutaneous emphysema and pneumomediastinum, unchanged. The heart is enlarged. Mild pulmonary edema is unchanged. There is no pleural effusion. There is no right pneumothorax. There is a small left basilar pneumothorax measuring approximately 5%. IMPRESSION: 1. Endotracheal tube in satisfactory position with the tip 3.8 cm above the sammy. 2. No other change from the prior study done earlier the same day. RPTAT: QQ .Guero Guadalupe MD, Date Time Electronically viewed and signed by .Guero Guadalupe MD, MD on 12/29/2016 21:28 .R/
[2016-12-30] VITALS (37 sets, daily range): BP systolic 123–182; BP diastolic 72–115; PULSE 68–81; RESP 10–23
[2016-12-30] MEDS: PROPOFOL 100 ML IV SCH ×5 (00:42→22:17)
[2016-12-30] MEDS: IPRATROPIUM (HFA) 12.9 GM INHALER INH SCH ×4 (01:38→19:34)
[2016-12-30] MEDS: LEVALBUTEROL (HFA) 15 GM INHALER INH SCH ×4 (01:39→19:34)
[2016-12-30] MEDS: SOD CHLORIDE 0.9% 1,000 ML IV SCH (02:58)
[2016-12-30 05:03] LABS: ADD SCAN DIFF NO
[2016-12-30 05:07] LABS: BASOPHILS % 0.2 % (0.0-2.0); EOSINOPHILS % 0.1 % (0.0-7.0); HEMATOCRIT 32.8 % (37.0-47.0); LYMPHOCYTES % 7.8 % (15.0-51.0); MEAN CORPUSCULAR HEMOGLOBIN 30.6 pg (29.0-33.0); MEAN CORPUSCULAR HGB CONC 33.5 g/dl (32.0-37.0); MEAN CORPUSCULAR VOLUME 91.1 fl (82.0-101.0); MEAN PLATELET VOLUME 11.5 fl (7.4-10.4); MONOCYTES % 7.8 % (0.0-11.0); NEUTROPHIL # 10.3 10^3/ul (1.6-7.5); NEUTROPHILS % 81.2 % (39.0-77.0); PLATELET COUNT 261 10^3/UL (140-415); RED CELL DISTRIBUTION WIDTH 17.6 % (11.5-14.5); WHITE BLOOD COUNT 12.6 10^3/ul (4.8-10.8)
[2016-12-30] MEDS: NITROGLYCERIN 2% 1 GM OINT PKT TD SCH ×5 (05:22→23:49)
[2016-12-30 05:32] LABS: CREATININE 0.61 mg/dl (0.44-1.00)
[2016-12-30 05:33] LABS: ALBUMIN/GLOBULIN RATIO 1.03; BILIRUBIN,INDIRECT 0.6 mg/dl (0-1.1); BILIRUBIN,TOTAL 0.6 mg/dl (0.2-1.3); PHOSPHORUS 3.2 mg/dl (2.5-4.9); TOTAL PROTEIN 5.9 g/dl (6.1-8.1)
[2016-12-30 05:34] LABS: CALCIUM 8.5 mg/dl (8.4-10.2); MAGNESIUM 1.9 mg/dl (1.7-2.5)
[2016-12-30 05:39] LABS: POTASSIUM 2.9 mmol/L (3.5-5.1)
[2016-12-30] MEDS: LEVOTHYROXINE 75 MCG TAB GTB SCH (06:02)
[2016-12-30] MEDS: HYDROCORTISONE 100 MG INJ IV SCH ×3 (06:02→22:17)
[2016-12-30] MEDS: METOCLOPRAMIDE 10 MG INJ IV SCH ×3 (06:02→22:17)
[2016-12-30] MEDS: PANTOPRAZOLE 40 MG INJ IV SCH (06:02)
--- NOTE | 2016-12-30 06:38 | RADRPT ---
PROCEDURE: XR Chest. CLINICAL INDICATION: Pneumonia, CHF TECHNIQUE: An AP view of the chest was obtained. COMPARISON: Chest x-ray dated 12/29/[address] abdomen and pelvis dated 12/29/2016 FINDINGS: The endotracheal tube tip is approximately 3.0 cm above the sammy. There is left upper extremity PICC line with tip near the cavoatrial junction. Multiple overlying monitor leads obscure evaluatio n. There are diffuse right greater than left interstitial opacities. No pleural effusion or pneumothor ax is seen. The cardiomediastinal silhouette is mildly enlarged . Calcifications are seen within t he aortic arch. The osseous structures demonstrate senescent changes. There is bilateral neck subc utaneous emphysema. IMPRESSION: 1. Right greater than left interstitial opacities may reflect asymmetric interstitial edema or pneu monia. Overall, no significant interval change. 2. Mild cardiomegaly and aortic atherosclerosis. 3. Mild bilateral neck subcutaneous emphysema. 4. Tubes and lines, as described above. RPTAT: .Arline Grier MD, MD Date Time Electronically viewed and signed by .Arline Grier MD, MD on 12/30/2016 06:38 .G/
[2016-12-30] MEDS ORDERED: POTASSIUM CHLORIDE 20 MEQ POWDER FOR ORAL SOLN GTB ONE (07:30)
[2016-12-30] MEDS: COLISTIMETHATE (25 MG/ML INHAL SYG) NEB SCH ×2 (08:03→19:34)
[2016-12-30] MEDS: CITALOPRAM 20 MG TAB GTB SCH (08:15)
[2016-12-30] MEDS: METOPROLOL 100 MG TAB GTB SCH ×2 (08:16→20:52)
[2016-12-30] MEDS: HYDROCODONE/APAP (5/325) TAB PO PRN ×2 (08:16→17:11)
[2016-12-30] MEDS: FLUTICASONE 0.05% 16 GM NAS SPRAY NASAL SCH ×2 (08:17→20:52)
[2016-12-30] MEDS: MEROPENEM 500 MG/100 ML (PMX) 100 ML IVPB SCH ×2 (08:17→20:51)
[2016-12-30] MEDS: predniSONE 20 MG TAB GTB SCH (08:17)
[2016-12-30] MEDS: AMLODIPINE 10 MG TAB GTB SCH (08:17)
[2016-12-30] MEDS: ACETAZOLAMIDE 500 MG INJ IV SCH (08:17)
--- NOTE | 2016-12-30 08:34 | CONS ---
DATE OF ADMISSION: 12/26/2016 DATE OF CONSULTATION: HISTORY OF PRESENT ILLNESS: Ms. Glasgow is a 66-year-old female who I consulted on at [facility] yesterday. I was re-consulted here to evaluate. After evaluating her for possible re currence of tongue cancer, Respiratory Care wanted her tracheostomy changed. We were changing from a 7 Port[place] but could not get the ____ Shiley through the dentition and the trachea, so we used ____. Once I got it through, I could not get it to pass inferiorly and go down as there was quite a bit of resistance. At this point, I tried to use an endoscope just to evaluate the issue. I pulled out the tube and put a scope in through the tracheostomy. 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 The area had some oozing but was not bleeding briskly. T he scope was then placed deeper into the trachea, and the 6 tube was advanced over into good positio n. There is no oozing at this time. She ended up being transferred to [facility] , was on ____ when she started having ____. The tracheostomy tube was removed, and an endotracheal tube was placed and she has not bled since. Looking at the tracheal stoma, there is no clot there b ut no air is coming out, so I suspect that the balloon is either at or below the level of the stoma. Because of that, I'm not going to be able to evaluate the area of bleeding. With that being said, I suspect the balloon is tamponading the site. I would plan at some point after a few days of pres sure to do a revision tracheostomy so that she will not have the issue with the tracheal tube gettin g caught in the ____ posterior portion of her tracheal wall. At this point, however, the ET tube is in good position holding the bleeding at bay. Thank you very much ____ consult of Ms Glasgow. Dictated By: NEISHA ENGLE/NTS Conf#: [id number] DID#: [id number]
--- NOTE | 2016-12-30 10:10 | PN ---
DATE: 12/30/2016 SUBJECTIVE: The patient has received 2 units of PRBC, tolerated well. The patient is currently on ventilatory support, tolerated well. The patient is alert, able to follow simple commands. No othe r acute events noted. No hemoptysis, hematemesis or hematochezia. OBJECTIVE: VITAL SIGNS: Blood pressure is 173/110, respirations 14, pulse 73, temperature 97.6. I's AND O'S: The patient had 4 L in with 3.2 liters out. HEENT: Head is normocephalic. NECK: Supple. HEART: Regular rate. LUNGS: Show diminished breath sounds at base. There are positive rhonchi and crackles noted, and c repitus on examination. ABDOMEN: Soft, nontender to palpation. No rebound or guarding. EXTREMITIES: Negative for clubbing, cyanosis. Trace edema. DERMATOLOGIC: No rashes. MUSCULOSKELETAL: No joint effusions. NEUROLOGIC: Limited exam due to lack of patient cooperation. LABORATORY DATA: Shows sodium 142, potassium 2.9, BUN 20, creatinine 0.61. White count 12.6, hemog lobin 11.0, hematocrit 32.9, platelet count is 261. IMAGING: Chest x-ray shows right greater than left opacities, may represent edema or pneumonia, no significant change and mild bilateral neck subcutaneous emphysema. ASSESSMENT AND PLAN: 1. Ventilator-dependent respiratory failure. The patient is currently stable. ABG have been reviewed. Will continue to monitor. 3. Status post code arrest. Etiology is felt to be secondary to aspiration hypoxemia. The patient is currently alert and oriented. At this point, will continue to monitor. Cardiology is following . Continue current medical management. Continue beta shanta. 4. Pneumoperitoneum pneumomediastinum, pneumothorax. The patient was seen by general surgeon, Dr. Antonio. No plan for surgery at this time. Will continue to monitor. 5. Sepsis secondary to aspiration pneumonia. Will continue broad spectrum antibiotics. Cultures h ave been reviewed. Follow up with infectious disease. 6. History of adrenal insufficiency. The patient is on a stress dose of hydrocortisone. We will t aper off. Will continue prednisone current rate. 7. Anemia with a drop in H and H. This may have been secondary to recent tracheal bleed. The keith ent is status post blood transfusion. Continue to monitor H and H levels. 8. Acute tracheal bleed. The patient's trachea had been removed. We will follow up with ENT to se gaona if a reinsertion of trach is necessary. Will monitor closely. 9. Leukocytosis secondary to steroids sepsis. White count is trending down. Will continue to issa tor. 10. History of tongue cancer, status post surgical resection. The patient was evaluated by ENT at [place]. We will place another ENT consult for continued evaluation. 11. Paroxysmal atrial fibrillation, currently in sinus rhythm. Continue to monitor. 12. Hypothyroidism. Continue Synthroid. 13. Hypertension. Blood pressure currently is elevated. Will increase metoprolol to 100 mg b.i.d. , add Norvasc 10 mg daily, 14. Dysphagia status post PEG placement. We will continue to monitor, continue tube feeding. 15. Volume overload, diastolic heart failure. The patient remains on Diamox. Will continue to mon itor electrolytes closely. 16. Hypokalemia. We will replete with potassium chloride 60 mEq. 17. History of critical care myopathy. Continue to monitor. 18. Gastrointestinal and deep venous thrombosis prophylaxis. Continue proton pump inhibitor and se quential leg squeezers. Please note I spent over 40 minutes of critical care time with this patient . Dictated By: NINA PEREIRA/BALDO Conf#: [id number] DID#: [id number]
--- NOTE | 2016-12-30 10:44 | PN ---
Date/Time of Note Date/Time of Note DATE: 12/30/16 TIME: 10:38 Assessment/Plan Lines/Catheters IV Catheter Type (from [facility]): PICC Line Latif in Place (from [facility]): Yes Assessment/Plan Chief Complaint/Hosp Course 1. Pneumoperitoneum. I doubt this is from an abdominal source; however, differential diagnosis includes air from feeding tube placement versus intestinal rupture versus esophageal rupture versus tracheal rupture or leak from the tracheostomy versus barotrauma from pneumothorax. The findings have been since the , which is right after her code when the trach was removed and an ET tube was placed. The findings are also prior to the placement of the percutaneous endoscopic gastrostomy. -supportive measures -antibiotics -ENT following -CTX consulted. 2. Pneumomediastinum, pneumothorax, and subcutaneous emphysema, probably secondary to above process. Thoracic surgery consultation. 3. Code arrest. Probably aspiration. Continue medical optimization and pulmonary support. Continue antibiotics. 4. History of oral cancer status post resection with possible recurrence. Will defer to ENT. No active bleeding at this time. 5. Anemia, multifactorial. Continue close monitoring and transfuse as needed. 6. Leukocytosis, possible multifactorial with adrenal insufficiency requiring steroids versus acute infectious process, and/or systemic inflammatory response syndrome. Continue antibiotics, supportive care, and steroids, weaning per medical service. Improving 7. History of atrial fibrillation, currently in sinus. 8. Dysphagia, status post percutaneous endoscopic gastrostomy on feedings, which are held. However, if the CT is negative for intraabdominal source, may resume feeding. 9. History of hypertension. Continue medical optimization. Thank you Problems: Subjective 24 Hr Interval Summary No fever, chills, vomiting. No cough. No sz. No rash. No bloating. No pyuria. More awake and opens eyes. No blood per mouth, rectum, urine, or trach site. No color changes. Exam/Review of Systems Vital Signs Vitals Vital Signs Date Time Temp Pulse Resp B/P Pulse Ox O2 Delivery O2 Flow Rate FiO2 12/30/16 10:27 70 10 99 30 12/30/16 10:00 158/97 Mechanical Ventilator 12/30/16 08:00 98.2 Intake and Output 12/29/16 12/29/16 12/30/16 15:00 23:00 07:00 Intake Total 1710 ml 1359.20 ml 934.72 ml Output Total 860 ml 1265 ml 1150 ml Balance 850 ml 94.20 ml -215.28 ml Exam Free Text/Dictation GENERAL: Ventilated. Noncommunicative. BMI of 30. HEENT: Pupils are sluggish. No scleral icterus. Mucous membranes are moist. NECK: Trach in place. Minimal crepitus. JVD not visible. PULMONARY: Minimally coarse. Normal effort. No wheezing. CARDIAC: S1, S2 present. ABDOMEN: Soft and minimally tender to deep palpation with grimacing. PEG in place. VASCULAR: Capillary refill is 2 seconds. NEUROLOGIC: Opens eyes and tracks. PSYCHIATRIC: Noncommunicative. SKIN: No rashes, no jaundice. Diffuse edema. LYMPHATICS: No inguinal or cervical lymph nodes. Results Result Diagram: 12/30/1639912/30/16399 PATRICK QUINTERO MD Dec 30, 2016 10:43
--- NOTE | 2016-12-30 15:53 | PN ---
DATE: 12/30/2016 SUBJECTIVE: Mrs. Glasgow continues mechanical ventilation. She is awake, alert, follows simple comm ands. No evidence of hemodynamic compromise. VITAL SIGNS: Temperature 98, pulse is 74, blood pressure 170/100, O2 saturation 96%, FIO2 of 30%, o rally intubated. HEENT: Dry mucous membranes. Pupils equal and reactive to light. CARDIAC: S1, S2, no added sounds or murmurs. CHEST: Diminished air entry bilaterally. ABDOMEN: Soft, nontender. No guarding or rebound. EXTREMITIES: No cyanosis, clubbing or edema. NEUROLOGIC: Generalized weakness. LABORATORY DATA: White count 12.6, hemoglobin 11, platelets 261. BUN 20, creatinine 0.61. Potassi um was 2.9. IMAGING: Chest x-ray was reviewed, shows right greater than left infiltrates. IMPRESSION AND PLAN: 1. Hypoxemic respiratory failure with trach removal and endotracheal intubation. 2. Pneumothorax, likely secondary to recent intubation and positive pressure ventilation currently stable. I would hold off on chest tube placement. 3. Pneumoperitoneum. CT abdomen performed showed small left pneumothorax, extensive subcutaneous emphysema and pneumoperitoneum; however, no emergent surgical intervention currently required. 4. Dysphagia. I would continue tube feeding for now. 5. Recent trach removal for excessive bleeding. I would have ENT reconsult and establish goals of care as to whether she requires tracheostomy to be replaced, so we should attempt weaning from mecha nical ventilation. Dictated By: DARWIN STEVENS/BALDO Conf#: [id number] DID#: [id number]
[2016-12-30] MEDS: FLUCONAZOLE 100 MG/NS (PMX) 50 ML IVPB SCH (16:41)
--- NOTE | 2016-12-30 16:47 | CONS ---
Date/Time of Note Date/Time of Note DATE: 12/30/16 TIME: 16:45 Assessment/Plan Assessment/Plan Additional Assessment/Plan IMPRESSION: 1. Subcutaneous emphysema which is dissected into the peritoneum. 2. Left apical pneumothorax. 3. Pneumomediastinum. 4. Malfunctioning G-tube which is changed at bedside now. 5. Anemia. No active gastrointestinal bleeding is noted.bleeding from tracheostomy site 6. Vent-dependent respiratory failure. 7. Acute tracheal bleed. 8. Adrenal insufficiency for which patient is on steroids. 9. Leukocytosis, improving. 10. Atrial fibrillation. 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 Plan continue feeding,pt.has no signs of peritonitis Monitor H&H continue antibiotics Consultation Date/Type/Reason Admit Date/Time Dec 26, 2016 at 15:25 Initial Consult Date 12/26/16 [facility] Referring Provider: HILARY RUBIO MD 24 HR Interval Summary Constitutional: improved Exam/Review of Systems Vital Signs Vitals Vital Signs Date Time Temp Pulse Resp B/P Pulse Ox O2 Delivery O2 Flow Rate FiO2 12/30/16 16:33 30 12/30/16 16:00 74 12/30/16 16:00 98.4 14 145/86 100 Mechanical Ventilator Intake and Output 12/29/16 12/29/16 12/30/16 15:00 23:00 07:00 Intake Total 1710 ml 1359.20 ml 964.72 ml Output Total 860 ml 1265 ml 1150 ml Balance 850 ml 94.20 ml -185.28 ml Exam Constitutional: alert, oriented, well developed Psych: nl mood/affect, no complaints Head: atraumatic, normocephalic Eyes: EOMI, PERRL, nl conjunctiva, nl lids, nl sclera ENMT: nl external ears & nose, nl lips & teeth, nl nasal mucosa & septum Neck: non-tender, supple Respiratory: clear to auscultation, normal air movement Cardiovascular: nl pulses, regular rate and rhythm Gastrointestinal: nl liver, spleen, non-tender, soft Musculoskeletal: nl extremities to inspection, nl gait and stance Extremities: normal pulses Neurological: [employer] II-XII intact, nl mental status, nl speech, nl strength Skin: nl turgor, No rash or lesions Lymph: nl lymph nodes Results Result Diagram: 12/30/16 0400 12/30/16 0400 Results 24 hrs Laboratory Tests Test 12/30/16 04:00 Alanine Aminotransferase (ALT/SGPT) 33 Albumin 3.0 L Albumin/Globulin Ratio 1.03 Alkaline Phosphatase 125 H Anion Gap 15 Aspartate Amino Transf (AST/SGOT) 22 Basophils # 0.0 Basophils % 0.2 Blood Urea Nitrogen 20 Calcium Level 8.5 Carbon Dioxide Level 25 Chloride Level 105 Creatinine 0.61 Direct Bilirubin 0.00 Eosinophils # 0.0 Eosinophils % 0.1 Globulin 2.90 Glucose Level 106 # Hematocrit 32.8 #L Hemoglobin 11.0 #L Indirect Bilirubin 0.6 Lymphocytes # 1.0 Lymphocytes % 7.8 L Magnesium Level 1.9 Mean Corpuscular Hemoglobin 30.6 Mean Corpuscular Hemoglobin Concent 33.5 Mean Corpuscular Volume 91.1 Mean Platelet Volume 11.5 H Monocytes # 1.0 H Monocytes % 7.8 Neutrophils # 10.3 H Neutrophils % 81.2 H Nucleated Red Blood Cells # 0.0 Nucleated Red Blood Cells % 0.0 Phosphorus Level 3.2 Platelet Count 261 Potassium Level 2.9 *L Red Blood Count 3.60 #L Red Cell Distribution Width 17.6 H Sodium Level 142 Total Bilirubin 0.6 Total Protein 5.9 L White Blood Count 12.6 H Medications Medications Current Medications Ondansetron HCl (Zofran Inj) 4 mg Q6H PRN IV NAUSEA AND/OR VOMITING; Start at 16:00 Pantoprazole 40 mg 40 mg DAILY@06 IV Last administered on 12/30/16 06:02; Admin Dose 40 MG; Start 12/27/16 at 06:00 Fluconazole/ Sodium Chloride 50 ml @ 50 mls/hr Q24H IVPB Last administered on 16:41; Admin Dose 50 MLS/HR; Start 12/26/16 at 17:30 Propofol 100 ml @ 3.12 mls/hr Q12H IV Last administered on 12/30/16 16:41; Admin Dose 15.6 MLS/HR; Start 12/26/16 at 17:00 Norepinephrine/ Dextrose (Levophed/D5W) 500 ml @ 1.87 mls/hr TITRATE IV ; Start 12/26/16 at 20:30 Metoclopramide HCl (Reglan) 10 mg Q8 IV Last administered on 12/30/16 13:16; Admin Dose 10 MG; Start 12/27/16 at 06:00 Acetaminophen (Tylenol Liquid) 650 mg Q4H PRN GTB PAIN AND OR ELEVATED TEMP; Start 12/27/16 at 09:00 Acetazolamide (Diamox) 500 mg DAILY IV Last administered on 12/30/16 08:17; Admin Dose 500 MG; Start 12/27/16 at 11:00 Atorvastatin Calcium (Lipitor) 40 mg HS GTB Last administered on 12/29/16 21: 00; Admin Dose 40 MG; Start 12/27/16 at 21:00 Citalopram Hydrobromide (Celexa) 40 mg DAILY GTB Last administered on 08:15; Admin Dose 40 MG; Start 12/27/16 at 09:00 Fluticasone Propionate (Flonase 0.05% Nasal) 2 spray BID NASAL Last administered on 12/30/16 08:17; Admin Dose 2 SPRAY; Start 12/27/16 at 11:00 Levothyroxine Sodium (Synthroid) 75 mcg DAILY@06 GTB Last administered on 06:02; Admin Dose 75 MCG; Start 12/28/16 at 06:00 Prednisone (Prednisone) 20 mg DAILY GTB Last administered on 12/30/16 08:17; Admin Dose 20 MG; Start 12/27/16 at 09:00 Zolpidem Tartrate (Ambien) 5 mg HS PRN PO INSOMNIA; Start 12/27/16 at 09:00 Acetaminophen/ Hydrocodone Bitart ([place] (5/325)) 1 tab Q6H PRN PO PAIN Last administered on 12/30/16 08:16; Admin Dose 1 TAB; Start 12/27/16 at 09:00 IV Flush 10 ml 10 ml PRN PRN IV IV PROTOCOL; Start 12/27/16 at 16:00 Vancomycin HCl 250 ml @ 125 mls/hr Q24H IVPB Last administered on 12/29/16 17 :54; Admin Dose 125 MLS/HR; Start 12/28/16 at 18:00 Meropenem (Merrem 500 Mg/ 100 ml (Pmx)) 100 ml @ 200 mls/hr Q12 IVPB Last administered on 12/30/16 08:17; Admin Dose 200 MLS/HR; Start 12/28/16 at 21:00 Nitroglycerin (Nitroglycerin 2% Oint) 0.5 inch Q6 TD Last administered on 05:22; Admin Dose 0.5 INCH; Start 12/29/16 at 18:00 Hydrocortisone (Solu-Cortef) 25 mg Q8 IV Last administered on 12/30/16 13:16; Admin Dose 25 MG; Start 12/30/16 at 14:00 Metoprolol Tartrate (Lopressor) 100 mg BID GTB Last administered on 12/30/16 08:16; Admin Dose 100 MG; Start 12/30/16 at 09:00 Amlodipine Besylate (Norvasc) 10 mg DAILY GTB Last administered on 12/30/16 08 :17; Admin Dose 10 MG; Start 12/30/16 at 09:00 ALYSSA THOMPSON MD Dec 30, 2016 16:47
--- NOTE | 2016-12-30 16:54 | CONS ---
Date/Time of Note Date/Time of Note DATE: 12/30/16 TIME: 16:42 Assessment/Plan Assessment/Plan Chief Complaint/Hosp Course ASSESSMENT AND PLAN: This is a 66-year-old female who presents with: Anemia n -cytic with increased RDW, WITH SIGNIFICANT DROP H/H DURING HOSPITALIZATION post 2 u PRBC + COMPONENT ACD HX ANEMIA of chronic disease. Continue to monitor hemoglobin and hematocrit levels. OBSERVE FOR BLEEDING AND HEMOLYSIS TRANSFUSE TO KEEP HB ABOVE 8 History of tongue cancer status post surgical resection. The possibility of recurrence at the outside hospital revision tracheostomy ENT F-UP Leukocytosis. Etiology is likely multifactorial secondary to steroids, sepsis. Status post code arrest. Etiology may be secondary to aspiration, hypoxemia. The patient had spontaneous return of circulation. Ventilator dependent respiratory failure. The patient is status post intubation. Currently stable. ABG has been reviewed. Vent settings have been reviewed. We will continue to monitor. Follow up with Pulmonary. Acute tracheal bleed. Underlying etiology is unclear. The patient's tracheostomy was removed. ENT consult for further evaluation with Dr. Carpio and monitor closely. Sepsis secondary to likely aspiration pneumonia. We will continue current broad spectrum antibiotics. Follow up cultures. Follow up with Infectious Disease. History of adrenal insufficiency. post stress dose of hydrocortisone. Paroxysmal atrial fibrillation, currently in sinus rhythm. Continue to monitor. Continue medical management. Hypothyroidism. ON Synthroid. Hypertension. Blood pressure is currently normotensive. Continue to monitor. Dysphagia, status post PEG. History of volume overload, diastolic heart failure. History of critical care myopathy. Continue to monitor. Gastrointestinal and deep venous thrombosis prophylaxis. Continue proton pump inhibitor and sequential leg squeezers. Problems: Consultation Date/Type/Reason Admit Date/Time Dec 26, 2016 at 15:25 Initial Consult Date 12/29/16 Type of Consultation: [facility] Referring Provider: HILARY RUBIO MD 24 HR Interval Summary Free Text/Dictation on mechanical ventilation. She is awake, alert, follows simple commands. Exam/Review of Systems Vital Signs Vitals Vital Signs Date Time Temp Pulse Resp B/P Pulse Ox O2 Delivery O2 Flow Rate FiO2 12/30/16 16:33 30 12/30/16 16:00 74 12/30/16 16:00 98.4 14 145/86 100 Mechanical Ventilator Intake and Output 12/29/16 12/29/16 12/30/16 15:00 23:00 07:00 Intake Total 1710 ml 1359.20 ml 964.72 ml Output Total 860 ml 1265 ml 1150 ml Balance 850 ml 94.20 ml -185.28 ml Exam HEENT: Head is normocephalic. pt is intubated unable to perform oral exam NECK: Shows dressing over tracheostomy site which is clean, dry, intact. HEART: Regular rate. LUNGS: Show diminished breath sounds at base. Positive rhonchi. ABDOMEN: Soft, nontender to palpation. Positive PEG. EXTREMITIES: Negative for clubbing, cyanosis, no edema. DERMATOLOGIC: No rashes. MUSCULOSKELETAL: No joint effusion. CHEST: The patient has noted crepitus. NEUROLOGIC: more alert Results Result Diagram: 12/30/16 0400 12/30/16 0400 Results 24 hrs Laboratory Tests Test 12/30/16 04:00 Alanine Aminotransferase (ALT/SGPT) 33 Albumin 3.0 L Albumin/Globulin Ratio 1.03 Alkaline Phosphatase 125 H Anion Gap 15 Aspartate Amino Transf (AST/SGOT) 22 Basophils # 0.0 Basophils % 0.2 Blood Urea Nitrogen 20 Calcium Level 8.5 Carbon Dioxide Level 25 Chloride Level 105 Creatinine 0.61 Direct Bilirubin 0.00 Eosinophils # 0.0 Eosinophils % 0.1 Globulin 2.90 Glucose Level 106 # Hematocrit 32.8 #L Hemoglobin 11.0 #L Indirect Bilirubin 0.6 Lymphocytes # 1.0 Lymphocytes % 7.8 L Magnesium Level 1.9 Mean Corpuscular Hemoglobin 30.6 Mean Corpuscular Hemoglobin Concent 33.5 Mean Corpuscular Volume 91.1 Mean Platelet Volume 11.5 H Monocytes # 1.0 H Monocytes % 7.8 Neutrophils # 10.3 H Neutrophils % 81.2 H Nucleated Red Blood Cells # 0.0 Nucleated Red Blood Cells % 0.0 Phosphorus Level 3.2 Platelet Count 261 Potassium Level 2.9 *L Red Blood Count 3.60 #L Red Cell Distribution Width 17.6 H Sodium Level 142 Total Bilirubin 0.6 Total Protein 5.9 L White Blood Count 12.6 H Medications Medications Current Medications Ondansetron HCl (Zofran Inj) 4 mg Q6H PRN IV NAUSEA AND/OR VOMITING; Start at 16:00 Pantoprazole 40 mg 40 mg DAILY@06 IV Last administered on 12/30/16t 06:02; Admin Dose 40 MG; Start 12/27/16 at 06:00 Fluconazole/ Sodium Chloride 50 ml @ 50 mls/hr Q24H IVPB Last administered on 16:41; Admin Dose 50 MLS/HR; Start 12/26/16 at 17:30 Propofol 100 ml @ 3.12 mls/hr Q12H IV Last administered on 12/30/16 16:41; Admin Dose 15.6 MLS/HR; Start 12/26/16 at 17:00 Norepinephrine/ Dextrose (Levophed/D5W) 500 ml @ 1.87 mls/hr TITRATE IV ; Start 12/26/16 at 20:30 Metoclopramide HCl (Reglan) 10 mg Q8 IV Last administered on 12/30/16 13:16; Admin Dose 10 MG; Start 12/27/16 at 06:00 Acetaminophen (Tylenol Liquid) 650 mg Q4H PRN GTB PAIN AND OR ELEVATED TEMP; Start 12/27/16 at 09:00 Acetazolamide (Diamox) 500 mg DAILY IV Last administered on 12/30/16 08:17; Admin Dose 500 MG; Start 12/27/16 at 11:00 Atorvastatin Calcium (Lipitor) 40 mg HS GTB Last administered on 12/29/16 21: 00; Admin Dose 40 MG; Start 12/27/16 at 21:00 Citalopram Hydrobromide (Celexa) 40 mg DAILY GTB Last administered on 08:15; Admin Dose 40 MG; Start 12/27/16 at 09:00 Fluticasone Propionate (Flonase 0.05% Nasal) 2 spray BID NASAL Last administered on 12/30/16 08:17; Admin Dose 2 SPRAY; Start 12/27/16 at 11:00 Levothyroxine Sodium (Synthroid) 75 mcg DAILY@06 GTB Last administered on 06:02; Admin Dose 75 MCG; Start 12/28/16 at 06:00 Prednisone (Prednisone) 20 mg DAILY GTB Last administered on 12/30/16 08:17; Admin Dose 20 MG; Start 12/27/16 at 09:00 Zolpidem Tartrate (Ambien) 5 mg HS PRN PO INSOMNIA; Start 12/27/16 at 09:00 Acetaminophen/ Hydrocodone Bitart ([place] (5/325)) 1 tab Q6H PRN PO PAIN Last administered on 12/30/16 08:16; Admin Dose 1 TAB; Start 12/27/16 at 09:00 IV Flush 10 ml 10 ml PRN PRN IV IV PROTOCOL; Start 12/27/16 at 16:00 Vancomycin HCl 250 ml @ 125 mls/hr Q24H IVPB Last administered on 12/29/16 17 :54; Admin Dose 125 MLS/HR; Start 12/28/16 at 18:00 Meropenem (Merrem 500 Mg/ 100 ml (Pmx)) 100 ml @ 200 mls/hr Q12 IVPB Last administered on 12/30/16 08:17; Admin Dose 200 MLS/HR; Start 12/28/16 at 21:00 Nitroglycerin (Nitroglycerin 2% Oint) 0.5 inch Q6 TD Last administered on 05:22; Admin Dose 0.5 INCH; Start 12/29/16 at 18:00 Hydrocortisone (Solu-Cortef) 25 mg Q8 IV Last administered on 12/30/16 13:16; Admin Dose 25 MG; Start 12/30/16 at 14:00 Metoprolol Tartrate (Lopressor) 100 mg BID GTB Last administered on 12/30/16 08:16; Admin Dose 100 MG; Start 12/30/16 at 09:00 Amlodipine Besylate (Norvasc) 10 mg DAILY GTB Last administered on 12/30/16 08 :17; Admin Dose 10 MG; Start 12/30/16 at 09:00 FREDERICK DAIGLE MD Dec 30, 2016 16:54
[2016-12-30 17:13] LABS: MICROALBUMIN 79.2 mg/dL
--- NOTE | 2016-12-30 17:13 | CONS ---
DATE OF ADMISSION: 12/26/2016 DATE OF CONSULTATION: TYPE OF CONSULTATION: Cardiothoracic. REASON FOR CONSULTATION: Pneumothorax. Thank you, ____ for asking me to see this patient. HISTORY OF PRESENT ILLNESS: This is a 66-year-old female with a history of tongue cancer diagnosed 10 years ago, status post resection and reconstruction. The patient was admitted because of a code arrest, and was intubated. Subsequently, her workup included a chest x-ray which showed small left basilar pneumothorax measuring about 5% yesterday. The patient's chest x-ray today has showed pneum onia, mild bilateral neck subcutaneous emphysema, but no evidence of any pneumothorax or pleural eff usion. The patient is currently intubated with stable vital signs: Blood pressure 156/98, pulse i s 71, respirations 14, saturation is 99% on 30% FIO2. PAST MEDICAL HISTORY: Significant for hypertension, hyperlipidemia, hypothyroidism, arterial insuff iciency, dialysis, atrial fibrillation. PAST SURGICAL HISTORY: Status post tracheostomy, PEG. ALLERGIES: NONE. SOCIAL HISTORY: No smoking, drinking or drug use. REVIEW OF SYSTEMS: Unable to be obtained. The patient is intubated. PHYSICAL EXAMINATION: VITAL SIGNS: Blood pressure is 158/97, pulse is 71, respirations 14, saturations 98% on FIO2 of 30%. HEENT: Orotracheally intubated. CARDIOVASCULAR: Normal S1, S2. LUNGS: Diminished breath sounds at the bases. ABDOMEN: Soft. EXTREMITIES: Warm. LABORATORY VALUES: Hemoglobin 12.6, white count is 11.6, hemoglobin 11, platelet count 261. Potass ium of 2.9. IMPRESSION: Pneumothorax,5%, which is now resolved. RECOMMENDATIONS: Will continue supportive care. We will monitor the chest x-ray for possibility of pneumothorax. We will discuss with the referring physicians. Dictated By: FANNY PRECIADO/BALDO Conf#: [id number] DID#: [id number]
[2016-12-30] MEDS: VANCOMYCIN 1 GM in NS 250 ML IVPB SCH (18:14)
[2016-12-30] MEDS ORDERED: MAGNESIUM SULFATE 2 GM/50 ML 50 ML IVPB ONE (19:30)
--- NOTE | 2016-12-30 20:43 | PN ---
DATE: 12/30/2016 SUBJECTIVE: No acute events overnight. No fevers. The patient is lying comfortably in bed. LABORATORY DATA: WBC today 12.6, H and H 11 and 32.8, platelets 261, neutrophils 81.2. BUN 20, cre atinine 0.61. INDWELLINGS: Endotracheal tube, PEG, and Latif. The patient also has PICC line placed on 7. DIAGNOSTICS: Chest x-ray this morning revealed right greater than left interstitial opacities. ANTIMICROBIALS: 1. Vancomycin. 2. Meropenem. 3. Fluconazole. PHYSICAL EXAMINATION: GENERAL: Well-developed, elderly woman who is intubated, sedated, and in no distress. HEENT: Head atraumatic, normocephalic. Sclerae anicteric. Buccal mucosa dry. NECK: Supple. CHEST: Rise symmetrical. Breath sounds diminished to bases. HEART: S1, S2. ABDOMEN: Soft. Bowel tones present. EXTREMITIES: Without cyanosis. ASSESSMENT: 1. Status post cardiopulmonary arrest. 2. Aspiration pneumonia. 3. Urinary tract infection with urine culture at [place] grew enterococcus and yeast. 4. Vancomycin-resistant Enterococcus stool colonization. 5. Acute respiratory failure. 6. Oral cancer. 7. Peritoneum and pneumomediastinum, no active issues, cardiology on case. PLAN: The patient remains hemodynamically stable on appropriate antimicrobials, followed by multipl e consultants. Continue on current management. Dictated By: LORETO MCKEON SPECIAL[employer] OPERATOR addison LEONARDO/NTS Conf#: [id number] DID#: [id number] CC: NINA MACIEL DO;*EndCC*
[2016-12-30] MEDS: ATORVASTATIN 40 MG TAB GTB SCH (20:52)
[2016-12-31] VITALS (35 sets, daily range): BP systolic 105–145; BP diastolic 66–86; PULSE 60–69; RESP 8–21
[2016-12-31] MEDS: LEVALBUTEROL (HFA) 15 GM INHALER INH SCH ×4 (01:17→19:23)
[2016-12-31] MEDS: IPRATROPIUM (HFA) 12.9 GM INHALER INH SCH ×4 (01:17→19:24)
[2016-12-31] MEDS: PROPOFOL 100 ML IV SCH ×5 (04:04→21:38)
[2016-12-31 04:46] LABS: ADD SCAN DIFF NO
[2016-12-31 05:43] LABS: BASOPHIL # 0.1 10^3/ul (0.0-0.1); BASOPHILS % 0.7 % (0.0-2.0); EOSINOPHILS # 0.1 10^3/ul (0.0-0.5); EOSINOPHILS % 0.9 % (0.0-7.0); HEMATOCRIT 32.7 % (37.0-47.0); HEMOGLOBIN 10.8 g/dl (12.0-16.0); LYMPHOCYTES # 1.8 10^3/ul (0.8-2.9); LYMPHOCYTES % 15.7 % (15.0-51.0); MEAN CORPUSCULAR HEMOGLOBIN 30.6 pg (29.0-33.0); MEAN CORPUSCULAR VOLUME 92.6 fl (82.0-101.0); MEAN PLATELET VOLUME 11.7 fl (7.4-10.4); MONOCYTE # 1.4 10^3/ul (0.3-0.9); MONOCYTES % 11.9 % (0.0-11.0); NEUTROPHIL # 7.8 10^3/ul (1.6-7.5); NEUTROPHILS % 66.4 % (39.0-77.0); PLATELET COUNT 258 10^3/UL (140-415); RED BLOOD COUNT 3.53 10^6/ul (4.20-5.40); RED CELL DISTRIBUTION WIDTH 17.6 % (11.5-14.5); WHITE BLOOD COUNT 11.7 10^3/ul (4.8-10.8)
[2016-12-31 05:48] LABS: CALCIUM 8.4 mg/dl (8.4-10.2); CREATININE 0.59 mg/dl (0.44-1.00); MAGNESIUM 2.5 mg/dl (1.7-2.5); PHOSPHORUS 2.9 mg/dl (2.5-4.9); POTASSIUM 3.2 mmol/L (3.5-5.1)
[2016-12-31] MEDS: METOCLOPRAMIDE 10 MG INJ IV SCH ×3 (06:06→21:09)
[2016-12-31] MEDS: HYDROCORTISONE 100 MG INJ IV SCH (06:06)
[2016-12-31] MEDS: PANTOPRAZOLE 40 MG INJ IV SCH (06:06)
[2016-12-31] MEDS: NITROGLYCERIN 2% 1 GM OINT PKT TD SCH ×4 (06:06→23:22)
[2016-12-31] MEDS: LEVOTHYROXINE 75 MCG TAB GTB SCH (06:06)
[2016-12-31] MEDS: COLISTIMETHATE (25 MG/ML INHAL SYG) NEB SCH (07:28)
[2016-12-31] MEDS ORDERED: POTASSIUM CHLORIDE 20 MEQ POWDER FOR ORAL SOLN GTB ONE (07:30)
--- NOTE | 2016-12-31 07:57 | PN ---
DATE: 12/30/2016 CARDIOLOGY FOLLOWUP PROGRESS NOTE SUBJECTIVE: Discussed with the staff. Rhythm strip was reviewed. The patient remains in sinus rhy thm, has frequent PVCs, intubated on the vent still. The patient has had good urine output. Potass ium has been low and has been replaced. Magnesium has been slightly low, but is replaced yet. The patient nonverbal status post intubation on the vent. MEDICATIONS: Reviewed as per medical reconciliation, personally reviewed. PHYSICAL EXAMINATION: VITAL SIGNS: Temperature 98.4, heart rate of 70, blood pressure of 139/86, respiratory rate of 18, saturating 100% on the vent. HEENT: Normocephalic, atraumatic. Status post intubation on the vent. Eyes: Pupils equal and rou nd. NECK: Status post previous tracheostomy. CARDIOVASCULAR: Regular rate and rhythm. Systolic murmur. PULMONARY: Mild rhonchi, diffuse. GASTROINTESTINAL: Soft, nontender. EXTREMITIES: Trivial edema. NEUROLOGIC: Sedated. PSYCHIATRIC: Appears to be calm. LABORATORY: Sodium 142, potassium 2.9, BUN of 20, creatinine 0.61, glucose of 106. Albumin is 3. WBC of 12.6, hemoglobin 11, platelets of 61. Chest x-ray done today shows right greater than left interstitial opacities, ____ edema or pneumonia . ASSESSMENT AND PLAN: 1. Hypoxemia respiratory failure, status post intubation now. 2. Status post cardiopulmonary arrest secondary to respiratory failure. 3. History of pneumonia. 4. Ventricular arrhythmia with frequent premature ventricular contractions. 5. Electrolyte abnormalities: 6. History of tracheal bleeding. 7. Anemia. 8. History of paroxysmal atrial fibrillation, currently in sinus rhythm. 9. History of dysphagia, for percutaneous endoscopic gastrostomy placement. 10. History of critical care myopathy. RECOMMENDATIONS: Electrolytes including potassium and magnesium will be replaced. We will continue to monitor her closely in the ICU. Vent support will be continued. ENT consultation has been requ ested as well. We will check electrolytes again tomorrow and adjust it as needed. ICU care will be continued. Dictated By: FRANCISCO BRIGGS/BALDO Conf#: [id number] DID#: [id number] CC: NINA MACIEL DO;*EndCC*
--- NOTE | 2016-12-31 08:25 | RADRPT ---
PROCEDURE: XR Chest. CLINICAL INDICATION: Pneumonia, CHF TECHNIQUE: An AP view of the chest was obtained. COMPARISON: Chest x-ray dated 12/29/2016 and 12/30/2016 FINDINGS: The endotracheal tube tip is approximately 2.3 cm above the sammy. There is left upper extremity PICC line with tip near the cavoatrial junction. Multiple overlying monitor leads obscure evaluatio n. There are diffuse bilateral interstitial opacities. There is blunting of the left costophrenic angl e. There is a questionable, tiny left apical pneumothorax. The cardiomediastinal silhouette is mil dly enlarged . Calcifications are seen within the aortic arch. The osseous structures demonstrate s enescent changes. There is bilateral neck subcutaneous emphysema. IMPRESSION: 1. Diffuse bilateral interstitial opacities may reflect interstitial edema or pneumonia. Findings are improved when compared to the prior examination. 2. There is a tiny left apical pneumothorax. Continued short interval follow-up is recommended. 3. Probable small left pleural effusion. 4. Mild cardiomegaly and aortic atherosclerosis. 5. Mild bilateral neck subcutaneous emphysema. 6. Tubes and lines, as described above. Findings were discussed with the patient's nurse on 12/31/2016 8:25:02 AM. RPTAT: HH .Arline Grier MD, MD Date Time Electronically viewed and signed by .Arline Grier MD, on 12/31/2016 08:25 .G/
--- NOTE | 2016-12-31 09:13 | CONS ---
Date/Time of Note Date/Time of Note DATE: 12/31/16 TIME: 09:08 Assessment/Plan Assessment/Plan Additional Assessment/Plan Ventilator settings; SIMV of 10, tidal volume 400, pressure support and 30% FiO2 PEEP of 0. Next Assessment recommendations; 1. Patient admitted to ICU after undergoing brief cardiac arrest at [facility] after she underwent a tracheostomy change. 2. History of lung cancer, patient required tracheostomy about couple weeks ago for upper airway obstruction. According to patient's they were having significant issues with frequent desaturations as well as significant accommodation of secretions and according to him the only route wants to do a tracheostomy. 3. She will hypertension. 4. History of hypothyroidism. 5. Likely history of chronic steroid use. Continue current treatment. Patient likely would need to have a redo tracheostomy. Also had a discussion with Dr. Carpio, the ENT surgeon who has been following the patient. I also had a very detailed discussion with the patient's at bedside and answered all his questions. Meanwhile I would recommend stopping antibiotics. Currently there is no evidence of any aspiration pneumonia. Consultation Date/Type/Reason Admit Date/Time Dec 26, 2016 at 15:25 Initial Consult Date 12/26/16 Type of Consultation: Pulmonary/critical care Referring Provider: HILARY RUBIO MD 24 HR Interval Summary Free Text/Dictation Patient condition remains critical but stable. Has remained hemodynamically stable. Despite being on propofol the patient is readily arousable. General exam; elderly lady, on ventilator via endotracheal tube. Currently in no distress. Exam/Review of Systems Vital Signs Vitals Vital Signs Date Time Temp Pulse Resp B/P Pulse Ox O2 Delivery O2 Flow Rate FiO2 12/31/16 07:30 30 12/31/16 07:00 62 11 136/85 100 Mechanical Ventilator 12/31/16 04:00 98.2 Intake and Output 12/30/16 12/30/16 12/31/16 15:00 23:00 07:00 Intake Total 400 ml 747.2 ml 464.7 ml Output Total 1255 ml 850 ml 610 ml Balance -855 ml -102.8 ml -145.3 ml Exam H EENT examination; supple neck, no JVD. No lymphadenopathy. Midline trachea. No thyromegaly. Orally intubated. Patient has fair dentition. There is a dressing applied over the previous tracheostomy site. Pupils are midsize reactive to light. There is very minimal soft tissue swelling involving the right lateral neck. Chest examination; clear to auscultation bilaterally. S1-S2 audible, no murmurs. Regular rhythm. Abdomen exam is; soft, G-tube in place. No organomegaly. Bowel sounds audible. Extremity exam; no peripheral edema. HAND SIZER examination a micro patient is readily arousable. Results Result Diagram: 12/31/16 0400 12/31/16 0400 Results 24 hrs Laboratory Tests Test 12/31/16 04:00 Anion Gap 10 # Basophils # 0.1 Basophils % 0.7 Blood Urea Nitrogen 20 Calcium Level 8.4 Carbon Dioxide Level 27 Chloride Level 108 Creatinine 0.59 Eosinophils # 0.1 Eosinophils % 0.9 Glucose Level 136 Hematocrit 32.7 L Hemoglobin 10.8 L Lymphocytes # 1.8 Lymphocytes % 15.7 Magnesium Level 2.5 Mean Corpuscular Hemoglobin 30.6 Mean Corpuscular Hemoglobin Concent 33.0 Mean Corpuscular Volume 92.6 Mean Platelet Volume 11.7 H Monocytes # 1.4 H Monocytes % 11.9 H Neutrophils # 7.8 H Neutrophils % 66.4 Nucleated Red Blood Cells # 0.0 Nucleated Red Blood Cells % 0.0 Phosphorus Level 2.9 Platelet Count 258 Potassium Level 3.2 L Red Blood Count 3.53 L Red Cell Distribution Width 17.6 H Sodium Level 142 White Blood Count 11.7 H Medications Medications Current Medications Ondansetron HCl (Zofran Inj) 4 mg Q6H PRN IV NAUSEA AND/OR VOMITING; Start at 16:00 Pantoprazole 40 mg 40 mg DAILY@06 IV Last administered on 12/31/16 06:06; Admin Dose 40 MG; Start 12/27/16 at 06:00 Fluconazole/ Sodium Chloride 50 ml @ 50 mls/hr Q24H IVPB Last administered on 16:41; Admin Dose 50 MLS/HR; Start 12/26/16 at 17:30 Propofol 100 ml @ 3.12 mls/hr Q12H IV Last administered on 12/31/16 07:56; Admin Dose 18.72 MLS/HR; Start 12/26/16 at 17:00 Norepinephrine/ Dextrose (Levophed/D5W) 500 ml @ 1.87 mls/hr TITRATE IV ; Start 12/26/16 at 20:30 Metoclopramide HCl (Reglan) 10 mg Q8 IV Last administered on 12/31/16 06:06; Admin Dose 10 MG; Start 12/27/16 at 06:00 Acetaminophen (Tylenol Liquid) 650 mg Q4H PRN GTB PAIN AND OR ELEVATED TEMP; Start 12/27/16 at 09:00 Acetazolamide (Diamox) 500 mg DAILY IV Last administered on 12/30/16 08:17; Admin Dose 500 MG; Start 12/27/16 at 11:00 Atorvastatin Calcium (Lipitor) 40 mg HS GTB Last administered on 12/30/16 20: 52; Admin Dose 40 MG; Start 12/27/16 at 21:00 Citalopram Hydrobromide (Celexa) 40 mg DAILY GTB Last administered on 08:15; Admin Dose 40 MG; Start 12/27/16 at 09:00 Fluticasone Propionate (Flonase 0.05% Nasal) 2 spray BID NASAL Last administered on 12/30/16 20:52; Admin Dose 2 SPRAY; Start 12/27/16 at 11:00 Levothyroxine Sodium (Synthroid) 75 mcg DAILY@06 GTB Last administered on 06:06; Admin Dose 75 MCG; Start 12/28/16 at 06:00 Prednisone (Prednisone) 20 mg DAILY GTB Last administered on 12/30/16 08:17; Admin Dose 20 MG; Start 12/27/16 at 09:00 Zolpidem Tartrate (Ambien) 5 mg HS PRN PO INSOMNIA; Start 12/27/16 at 09:00 Acetaminophen/ Hydrocodone Bitart ([place] (5/325)) 1 tab Q6H PRN PO PAIN Last administered on 12/30/16 17:11; Admin Dose 1 TAB; Start 12/27/16 at 09:00 IV Flush 10 ml 10 ml PRN PRN IV IV PROTOCOL; Start 12/27/16 at 16:00 Vancomycin HCl 250 ml @ 125 mls/hr Q24H IVPB Last administered on 12/30/16 18 :14; Admin Dose 125 MLS/HR; Start 12/28/16 at 18:00 Meropenem (Merrem 500 Mg/ 100 ml (Pmx)) 100 ml @ 200 mls/hr Q12 IVPB Last administered on 12/30/16 20:51; Admin Dose 200 MLS/HR; Start 12/28/16 at 21:00 Nitroglycerin (Nitroglycerin 2% Oint) 0.5 inch Q6 TD Last administered on 06:06; Admin Dose 0.5 INCH; Start 12/29/16 at 18:00 Metoprolol Tartrate (Lopressor) 100 mg BID GTB Last administered on 12/30/16 20:52; Admin Dose 100 MG; Start 12/30/16 at 09:00 Amlodipine Besylate (Norvasc) 10 mg DAILY GTB Last administered on 12/30/16 08 :17; Admin Dose 10 MG; Start 12/30/16 at 09:00 Hydrocortisone (Solu-Cortef) 10 mg BID IV ; Start 12/31/16 at 21:00 EMILIANO HICKS Dec 31, 2016 09:13
[2016-12-31] MEDS: predniSONE 20 MG TAB GTB SCH (09:27)
[2016-12-31] MEDS: CITALOPRAM 20 MG TAB GTB SCH (09:27)
[2016-12-31] MEDS: AMLODIPINE 10 MG TAB GTB SCH (09:27)
--- NOTE | 2016-12-31 09:28 | PN ---
DATE: 12/31/2016 SUBJECTIVE: The patient is stable, remains on full ventilatory support. Please note, I spoke with ENT, Dr. Carpio who has stated from his standpoint, he has no objections for attempted extubation. He said he will also attempt to coordinate with accounting professor if they need him to be present at the time of extubation. No other acute events noted. There has been no further bleeding noted that the ostomy site. OBJECTIVE: VITAL SIGNS: Blood pressure 131/84, respirations 15, pulse 62, temperature 98.2. I's AND O'S: The patient had 1.6 L in, 2.6 liters out. HEENT: Head is normocephalic. NECK: Supple. HEART: Regular rate. LUNGS: Show diminished breath sounds at base. ABDOMEN: Soft, nontender to palpation. No rebound or guarding. EXTREMITIES: Negative for clubbing, cyanosis. Positive edema. DERMATOLOGIC: No rashes. MUSCULOSKELETAL: No joint effusions. NEUROLOGIC: No change in exam. LABORATORY DATA: Sodium is 142, potassium 3.2, chloride 108, BUN 20, creatinine 0.59. White count 11.7, hemoglobin 10.8, hematocrit 32.7, platelet count 258. The patient's x-ray is reviewed. Cultu res have been reviewed. ASSESSMENT AND PLAN: 1. Ventilator-dependent respiratory failure: The patient's vent settings and ABG have been reviewe d, currently stable. Continue to monitor. Follow up with Pulmonary for possible weaning. 2. Pneumoperitoneum, pneumomediastinum, status post pneumothorax. Patient has been evaluated by Ge neral Surgery and CT Surgery. At this time, no plans for surgical intervention. Will continue. 3. Acute tracheal bleed: Now resolved. Trach has been removed. I spoke with ENT, Dr. Carpio, who states from his standpoint, the patient may be extubated. There is no immediate need for replaceme nt of the tracheal tube. At this point, will continue to monitor. 4. Sepsis secondary to aspiration pneumonia and urinary tract infection: Continue current antibiot ics and antifungal therapy. Cultures have been reviewed. Follow up with Infectious Disease for fur ther recommendations. 5. Anemia: The drop in H and H, likely secondary to recent bleed. The patient is status post tolbert sfusion. Hemoglobin levels stable, continue to monitor. 6. Leukocytosis: Likely secondary to steroids and sepsis. WBCs trending down. Continue to monito r. 7. History of tongue cancer: Status-post surgical resection. The patient was evaluated by ENT. W ill continue to monitor. 8. Paroxysmal atrial fibrillation: Currently in sinus rhythm. Continue current medical management . 9. Hypothyroidism: Continue Synthroid. 10. Hypertension: Blood pressure medications were adjusted. Currently controlled. Continue curre nt blood pressure regimen. 11. Dysphagia: Continue tube feeding. 12. Acute diastolic heart failure: The patient remains on Diamox. Continue. 13. Hypokalemia: Secondary to diuretic therapy. Continue potassium chloride supplementation. 14. History of critical care myopathy: Continue to observe. 15. Gastrointestinal and deep venous thrombosis prophylaxis: Continue proton pump inhibitor and se quential leg squeezers. Dictated By: NINA PEREIRA/BALDO Conf#: [id number] DID#: [id number]
[2016-12-31] MEDS: METOPROLOL 100 MG TAB GTB SCH ×2 (09:29→22:00)
[2016-12-31] MEDS: ACETAZOLAMIDE 500 MG INJ IV SCH (09:29)
[2016-12-31] MEDS: FLUTICASONE 0.05% 16 GM NAS SPRAY NASAL SCH ×2 (09:29→21:10)
[2016-12-31] MEDS: HYDROCODONE/APAP (5/325) TAB PO PRN ×2 (09:34→15:36)
[2016-12-31] MEDS: MEROPENEM 500 MG/100 ML (PMX) 100 ML IVPB SCH (09:44)
--- NOTE | 2016-12-31 13:19 | CONS ---
Date/Time of Note Date/Time of Note DATE: 12/31/16 TIME: 13:16 Assessment/Plan Assessment/Plan Chief Complaint/Hosp Course SUBJECTIVE: No acute events overnight. No fevers. The patient is lying comfortably in bed. INDWELLINGS: Endotracheal tube, PEG, and Latif. The patient also has PICC line placed on 12/27/2016. ANTIMICROBIALS: 1. Vancomycin. 2. Meropenem. 3. Fluconazole. PHYSICAL EXAMINATION: GENERAL: Well-developed, elderly woman who is intubated, sedated, and in no distress. HEENT: Head atraumatic, normocephalic. Sclerae anicteric. Buccal mucosa dry. NECK: Supple. CHEST: Rise symmetrical. Breath sounds diminished to bases. HEART: S1, S2. ABDOMEN: Soft. Bowel tones present. EXTREMITIES: Without cyanosis. ASSESSMENT: 1. Status post cardiopulmonary arrest. 2. Aspiration pneumonia. 3. Urinary tract infection with urine culture at [facility] grew enterococcus and yeast. 4. Vancomycin-resistant Enterococcus stool colonization. 5. Acute respiratory failure. 6. Oral cancer. 7. Peritoneum and pneumomediastinum, no active issues, cardiology on case. PLAN: The patient remains hemodynamically stable, wbc decreasing, no fevers, will dc abx and observe, follow rec-s of consultants. DW staff Problems: Consultation Date/Type/Reason Admit Date/Time Dec 26, 2016 at 15:25 Initial Consult Date 12/26/16 Type of Consultation: ID Referring Provider: HILARY RUBIO MD Exam/Review of Systems Vital Signs Vitals Vital Signs Date Time Temp Pulse Resp B/P Pulse Ox O2 Delivery O2 Flow Rate FiO2 12/31/16 12:24 64 21 100 30 12/31/16 12:00 98.4 123/81 Mechanical Ventilator Intake and Output 12/30/16 12/30/16 12/31/16 15:00 23:00 07:00 Intake Total 400 ml 747.2 ml 464.7 ml Output Total 1255 ml 850 ml 610 ml Balance -855 ml -102.8 ml -145.3 ml Results Result Diagram: 12/31/16 0400 12/31/16 0400 Results 24 hrs Laboratory Tests Test 12/31/16 04:00 Anion Gap 10 # Basophils # 0.1 Basophils % 0.7 Blood Urea Nitrogen 20 Calcium Level 8.4 Carbon Dioxide Level 27 Chloride Level 108 Creatinine 0.59 Eosinophils # 0.1 Eosinophils % 0.9 Glucose Level 136 Hematocrit 32.7 L Hemoglobin 10.8 L Lymphocytes # 1.8 Lymphocytes % 15.7 Magnesium Level 2.5 Mean Corpuscular Hemoglobin 30.6 Mean Corpuscular Hemoglobin Concent 33.0 Mean Corpuscular Volume 92.6 Mean Platelet Volume 11.7 H Monocytes # 1.4 H Monocytes % 11.9 H Neutrophils # 7.8 H Neutrophils % 66.4 Nucleated Red Blood Cells # 0.0 Nucleated Red Blood Cells % 0.0 Phosphorus Level 2.9 Platelet Count 258 Potassium Level 3.2 L Red Blood Count 3.53 L Red Cell Distribution Width 17.6 H Sodium Level 142 White Blood Count 11.7 H Medications Medications Current Medications Ondansetron HCl (Zofran Inj) 4 mg Q6H PRN IV NAUSEA AND/OR VOMITING; Start at 16:00 Pantoprazole 40 mg 40 mg DAILY@06 IV Last administered on 12/31/16 06:06; Admin Dose 40 MG; Start 12/27/16 at 06:00 Fluconazole/ Sodium Chloride 50 ml @ 50 mls/hr Q24H IVPB Last administered on 16:41; Admin Dose 50 MLS/HR; Start 12/26/16 at 17:30 Propofol 100 ml @ 3.12 mls/hr Q12H IV Last administered on 12/31/16 12:40; Admin Dose 18.72 MLS/HR; Start 12/26/16 at 17:00 Norepinephrine/ Dextrose (Levophed/D5W) 500 ml @ 1.87 mls/hr TITRATE IV ; Start 12/26/16 at 20:30 Metoclopramide HCl (Reglan) 10 mg Q8 IV Last administered on 12/31/16 06:06; Admin Dose 10 MG; Start 12/27/16 at 06:00 Acetaminophen (Tylenol Liquid) 650 mg Q4H PRN GTB PAIN AND OR ELEVATED TEMP; Start 12/27/16 at 09:00 Acetazolamide (Diamox) 500 mg DAILY IV Last administered on 12/31/16 09:29; Admin Dose 500 MG; Start 12/27/16 at 11:00 Atorvastatin Calcium (Lipitor) 40 mg HS GTB Last administered on 12/30/16 20: 52; Admin Dose 40 MG; Start 12/27/16 at 21:00 Citalopram Hydrobromide (Celexa) 40 mg DAILY GTB Last administered on 09:27; Admin Dose 40 MG; Start 12/27/16 at 09:00 Fluticasone Propionate (Flonase 0.05% Nasal) 2 spray BID NASAL Last administered on 12/31/16 09:29; Admin Dose 2 SPRAY; Start 12/27/16 at 11:00 Levothyroxine Sodium (Synthroid) 75 mcg DAILY@06 GTB Last administered on 06:06; Admin Dose 75 MCG; Start 12/28/16 at 06:00 Prednisone (Prednisone) 20 mg DAILY GTB Last administered on 12/31/16 09:27; Admin Dose 20 MG; Start 12/27/16 at 09:00 Zolpidem Tartrate (Ambien) 5 mg HS PRN PO INSOMNIA; Start 12/27/16 at 09:00 Acetaminophen/ Hydrocodone Bitart ([place] (5/325)) 1 tab Q6H PRN PO PAIN Last administered on 12/31/16 09:34; Admin Dose 1 TAB; Start 12/27/16 at 09:00 IV Flush 10 ml 10 ml PRN PRN IV IV PROTOCOL; Start 12/27/16 at 16:00 Vancomycin HCl 250 ml @ 125 mls/hr Q24H IVPB Last administered on 12/30/16 18 :14; Admin Dose 125 MLS/HR; Start 12/28/16 at 18:00 Meropenem (Merrem 500 Mg/ 100 ml (Pmx)) 100 ml @ 200 mls/hr Q12 IVPB Last administered on 12/31/16 09:44; Admin Dose 200 MLS/HR; Start 12/28/16 at 21:00 Nitroglycerin (Nitroglycerin 2% Oint) 0.5 inch Q6 TD Last administered on 06:06; Admin Dose 0.5 INCH; Start 12/29/16 at 18:00 Metoprolol Tartrate (Lopressor) 100 mg BID GTB Last administered on 12/31/16 09:29; Admin Dose 100 MG; Start 12/30/16 at 09:00 Amlodipine Besylate (Norvasc) 10 mg DAILY GTB Last administered on 12/31/16t 09 :27; Admin Dose 10 MG; Start 12/30/16 at 09:00 Hydrocortisone (Solu-Cortef) 10 mg BID IV ; Start 12/31/16 at 21:00 LORETO MCKEON NP Dec 31, 2016 13:19
--- NOTE | 2016-12-31 19:05 | CONS ---
Date/Time of Note Date/Time of Note DATE: 12/31/16 TIME: 19:04 Assessment/Plan Assessment/Plan Additional Assessment/Plan Assessment/Plan Additional Assessment/Plan IMPRESSION: 1. Subcutaneous emphysema which is dissected into the peritoneum. 2. Left apical pneumothorax. 3. Pneumomediastinum. 4. Malfunctioning G-tube which is changed at bedside now. 5. Anemia. No active gastrointestinal bleeding is noted.bleeding from tracheostomy site 6. Vent-dependent respiratory failure. 7. Acute tracheal bleed. 8. Adrenal insufficiency for which patient is on steroids. 9. Leukocytosis, improving. 10. Atrial fibrillation. 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 Plan continue feeding,pt.has no signs of peritonitis,increase feeding to 50 cc/hr Monitor H&H continue antibiotics Consultation Date/Type/Reason Admit Date/Time Dec 26, 2016 at 15:25 Initial Consult Date 12/26/16 Type of Consultation: ID Referring Provider: HILARY RUBIO MD 24 HR Interval Summary Constitutional: no complaints Exam/Review of Systems Vital Signs Vitals Vital Signs Date Time Temp Pulse Resp B/P Pulse Ox O2 Delivery O2 Flow Rate FiO2 12/31/16 18:00 67 13 112/67 100 Mechanical Ventilator 12/31/16 17:00 98.2 12/31/16 16:47 30 Intake and Output 12/30/16 12/30/16 12/31/16 15:00 23:00 07:00 Intake Total 400 ml 747.2 ml 464.7 ml Output Total 1255 ml 850 ml 610 ml Balance -855 ml -102.8 ml -145.3 ml Exam Constitutional: alert, oriented, well developed Psych: nl mood/affect, no complaints Head: atraumatic, normocephalic Eyes: EOMI, PERRL, nl conjunctiva, nl lids, nl sclera ENMT: nl external ears & nose, nl lips & teeth, nl nasal mucosa & septum Neck: non-tender, supple Respiratory: clear to auscultation, normal air movement Cardiovascular: nl pulses, regular rate and rhythm Gastrointestinal: nl liver, spleen, non-tender, soft Musculoskeletal: nl extremities to inspection, nl gait and stance Extremities: normal pulses Neurological: [employer] II-XII intact, nl mental status, nl speech, nl strength Skin: nl turgor, No rash or lesions Lymph: nl lymph nodes Results Result Diagram: 12/31/16 0400 12/31/16 0400 Results 24 hrs Laboratory Tests Test 12/31/16 04:00 Anion Gap 10 # Basophils # 0.1 Basophils % 0.7 Blood Urea Nitrogen 20 Calcium Level 8.4 Carbon Dioxide Level 27 Chloride Level 108 Creatinine 0.59 Eosinophils # 0.1 Eosinophils % 0.9 Glucose Level 136 Hematocrit 32.7 L Hemoglobin 10.8 L Lymphocytes # 1.8 Lymphocytes % 15.7 Magnesium Level 2.5 Mean Corpuscular Hemoglobin 30.6 Mean Corpuscular Hemoglobin Concent 33.0 Mean Corpuscular Volume 92.6 Mean Platelet Volume 11.7 H Monocytes # 1.4 H Monocytes % 11.9 H Neutrophils # 7.8 H Neutrophils % 66.4 Nucleated Red Blood Cells # 0.0 Nucleated Red Blood Cells % 0.0 Phosphorus Level 2.9 Platelet Count 258 Potassium Level 3.2 L Red Blood Count 3.53 L Red Cell Distribution Width 17.6 H Sodium Level 142 White Blood Count 11.7 H Medications Medications Current Medications Ondansetron HCl (Zofran Inj) 4 mg Q6H PRN IV NAUSEA AND/OR VOMITING; Start at 16:00 Pantoprazole 40 mg 40 mg DAILY@06 IV Last administered on 12/31/16 06:06; Admin Dose 40 MG; Start 12/27/16 at 06:00 Propofol 100 ml @ 3.12 mls/hr Q12H IV Last administered on 12/31/16 16:24; Admin Dose 18.72 MLS/HR; Start 12/26/16 at 17:00 Norepinephrine/ Dextrose (Levophed/D5W) 500 ml @ 1.87 mls/hr TITRATE IV ; Start 12/26/16 at 20:30 Metoclopramide HCl (Reglan) 10 mg Q8 IV Last administered on 12/31/16 13:52; Admin Dose 10 MG; Start 12/27/16 at 06:00 Acetaminophen (Tylenol Liquid) 650 mg Q4H PRN GTB PAIN AND OR ELEVATED TEMP; Start 12/27/16 at 09:00 Acetazolamide (Diamox) 500 mg DAILY IV Last administered on 12/31/16 09:29; Admin Dose 500 MG; Start 12/27/16 at 11:00 Atorvastatin Calcium (Lipitor) 40 mg HS GTB Last administered on 12/30/16 20: 52; Admin Dose 40 MG; Start 12/27/16 at 21:00 Citalopram Hydrobromide (Celexa) 40 mg DAILY GTB Last administered on 09:27; Admin Dose 40 MG; Start 12/27/16 at 09:00 Fluticasone Propionate (Flonase 0.05% Nasal) 2 spray BID NASAL Last administered on 12/31/16 09:29; Admin Dose 2 SPRAY; Start 12/27/16 at 11:00 Levothyroxine Sodium (Synthroid) 75 mcg DAILY@06 GTB Last administered on 06:06; Admin Dose 75 MCG; Start 12/28/16 at 06:00 Prednisone (Prednisone) 20 mg DAILY GTB Last administered on 12/31/16 09:27; Admin Dose 20 MG; Start 12/27/16 at 09:00 Zolpidem Tartrate (Ambien) 5 mg HS PRN PO INSOMNIA; Start 12/27/16 at 09:00 Acetaminophen/ Hydrocodone Bitart ([place] (5/325)) 1 tab Q6H PRN PO PAIN Last administered on 12/31/16 15:36; Admin Dose 1 TAB; Start 12/27/16 at 09:00 IV Flush (NS 10 ml) 10 ml PRN PRN IV IV PROTOCOL; Start 12/27/16 at 16:00 Nitroglycerin (Nitroglycerin 2% Oint) 0.5 inch Q6 TD Last administered on 06:06; Admin Dose 0.5 INCH; Start 12/29/16 at 18:00 Metoprolol Tartrate (Lopressor) 100 mg BID GTB Last administered on 12/31/16 09:29; Admin Dose 100 MG; Start 12/30/16 at 09:00 Amlodipine Besylate (Norvasc) 10 mg DAILY GTB Last administered on 12/31/16 09 :27; Admin Dose 10 MG; Start 12/30/16 at 09:00 Hydrocortisone (Solu-Cortef) 10 mg BID IV ; Start 12/31/16 at 21:00 ALYSSA THOMPSON MD Dec 31, 2016 19:04
[2016-12-31] MEDS ORDERED: HYDROCORTISONE 100 MG INJ IV SCH (21:00)
[2016-12-31] MEDS: ATORVASTATIN 40 MG TAB GTB SCH (21:09)
--- NOTE | 2016-12-31 22:39 | CONS ---
Date/Time of Note Date/Time of Note DATE: 12/31/16 TIME: 22:38 Assessment/Plan Assessment/Plan Chief Complaint/Hosp Course ASSESSMENT AND PLAN: This is a 66-year-old female who presents with: Anemia n -cytic with increased RDW, WITH SIGNIFICANT DROP H/H DURING HOSPITALIZATION post 2 u PRBC + COMPONENT ACD HX ANEMIA of chronic disease. Continue to monitor hemoglobin and hematocrit levels. OBSERVE FOR BLEEDING AND HEMOLYSIS TRANSFUSE TO KEEP HB ABOVE 8 History of tongue cancer status post surgical resection. The possibility of recurrence at the outside hospital revision tracheostomy ENT F-UP Leukocytosis. Etiology is likely multifactorial secondary to steroids, sepsis. Status post code arrest. Etiology may be secondary to aspiration, hypoxemia. The patient had spontaneous return of circulation. Ventilator dependent respiratory failure. The patient is status post intubation. Currently stable. ABG has been reviewed. Vent settings have been reviewed. We will continue to monitor. Follow up with Pulmonary. Acute tracheal bleed. Underlying etiology is unclear. The patient's tracheostomy was removed. ENT consult for further evaluation with Dr. Carpio and monitor closely. Sepsis secondary to likely aspiration pneumonia. We will continue current broad spectrum antibiotics. Follow up cultures. Follow up with Infectious Disease. History of adrenal insufficiency. post stress dose of hydrocortisone. Paroxysmal atrial fibrillation, currently in sinus rhythm. Continue to monitor. Continue medical management. Hypothyroidism. ON Synthroid. Hypertension. Blood pressure is currently normotensive. Continue to monitor. Dysphagia, status post PEG. History of volume overload, diastolic heart failure. History of critical care myopathy. Continue to monitor. Gastrointestinal and deep venous thrombosis prophylaxis. Continue proton pump inhibitor and sequential leg squeezers. Problems: Consultation Date/Type/Reason Admit Date/Time Dec 26, 2016 at 15:25 Initial Consult Date 12/29/16 Type of Consultation: [facility] Referring Provider: HILARY RUBIO MD 24 HR Interval Summary Free Text/Dictation SUBJECTIVE: The patient is stable, remains on full ventilatory support. No other acute events noted. There has been no further bleeding noted that the ostomy site. Exam/Review of Systems Vital Signs Vitals Vital Signs Date Time Temp Pulse Resp B/P Pulse Ox O2 Delivery O2 Flow Rate FiO2 12/31/16 22:00 68 10 130/79 100 Mechanical Ventilator 12/31/16 20:15 30 12/31/16 20:00 97.9 Intake and Output 12/30/16 12/30/16 12/31/16 15:00 23:00 07:00 Intake Total 400 ml 747.2 ml 464.7 ml Output Total 1255 ml 850 ml 610 ml Balance -855 ml -102.8 ml -145.3 ml Exam OBJECTIVE: HEENT: Head is normocephalic. NECK: Supple. HEART: Regular rate. LUNGS: Show diminished breath sounds at base. ABDOMEN: Soft, nontender to palpation. No rebound or guarding. EXTREMITIES: Negative for clubbing, cyanosis. Positive edema. DERMATOLOGIC: No rashes. MUSCULOSKELETAL: No joint effusions. NEUROLOGIC: No change in exam. Results Result Diagram: 12/31/16 0400 12/31/16 0400 Results 24 hrs Laboratory Tests Test 12/31/16 04:00 Anion Gap 10 # Basophils # 0.1 Basophils % 0.7 Blood Urea Nitrogen 20 Calcium Level 8.4 Carbon Dioxide Level 27 Chloride Level 108 Creatinine 0.59 Eosinophils # 0.1 Eosinophils % 0.9 Glucose Level 136 Hematocrit 32.7 L Hemoglobin 10.8 L Lymphocytes # 1.8 Lymphocytes % 15.7 Magnesium Level 2.5 Mean Corpuscular Hemoglobin 30.6 Mean Corpuscular Hemoglobin Concent 33.0 Mean Corpuscular Volume 92.6 Mean Platelet Volume 11.7 H Monocytes # 1.4 H Monocytes % 11.9 H Neutrophils # 7.8 H Neutrophils % 66.4 Nucleated Red Blood Cells # 0.0 Nucleated Red Blood Cells % 0.0 Phosphorus Level 2.9 Platelet Count 258 Potassium Level 3.2 L Red Blood Count 3.53 L Red Cell Distribution Width 17.6 H Sodium Level 142 White Blood Count 11.7 H Medications Medications Current Medications Ondansetron HCl (Zofran Inj) 4 mg Q6H PRN IV NAUSEA AND/OR VOMITING; Start at 16:00 Pantoprazole 40 mg 40 mg DAILY@06 IV Last administered on 12/31/16 06:06; Admin Dose 40 MG; Start 12/27/16 at 06:00 Propofol 100 ml @ 3.12 mls/hr Q12H IV Last administered on 12/31/16 21:38; Admin Dose 18.72 MLS/HR; Start 12/26/16 at 17:00 Norepinephrine/ Dextrose (Levophed/D5W) 500 ml @ 1.87 mls/hr TITRATE IV ; Start 12/26/16 at 20:30 Metoclopramide HCl (Reglan) 10 mg Q8 IV Last administered on 12/31/16 21:09; Admin Dose 10 MG; Start 12/27/16 at 06:00 Acetaminophen (Tylenol Liquid) 650 mg Q4H PRN GTB PAIN AND OR ELEVATED TEMP; Start 12/27/16 at 09:00 Acetazolamide (Diamox) 500 mg DAILY IV Last administered on 12/31/16 09:29; Admin Dose 500 MG; Start 12/27/16 at 11:00 Atorvastatin Calcium (Lipitor) 40 mg HS GTB Last administered on 12/31/16 21: 09; Admin Dose 40 MG; Start 12/27/16 at 21:00 Citalopram Hydrobromide (Celexa) 40 mg DAILY GTB Last administered on 09:27; Admin Dose 40 MG; Start 12/27/16 at 09:00 Fluticasone Propionate (Flonase 0.05% Nasal) 2 spray BID NASAL Last administered on 12/31/16 21:10; Admin Dose 2 SPRAY; Start 12/27/16 at 11:00 Levothyroxine Sodium (Synthroid) 75 mcg DAILY@06 GTB Last administered on 06:06; Admin Dose 75 MCG; Start 12/28/16 at 06:00 Prednisone (Prednisone) 20 mg DAILY GTB Last administered on 12/31/16 09:27; Admin Dose 20 MG; Start 12/27/16 at 09:00 Zolpidem Tartrate (Ambien) 5 mg HS PRN PO INSOMNIA; Start 12/27/16 at 09:00 Acetaminophen/ Hydrocodone Bitart ([place] (5/325)) 1 tab Q6H PRN PO PAIN Last administered on 12/31/16 15:36; Admin Dose 1 TAB; Start 12/27/16 at 09:00 IV Flush (NS 10 ml) 10 ml PRN PRN IV IV PROTOCOL; Start 12/27/16 at 16:00 Nitroglycerin (Nitroglycerin 2% Oint) 0.5 inch Q6 TD Last administered on 06:06; Admin Dose 0.5 INCH; Start 3/19/17 at 18:00 Metoprolol Tartrate (Lopressor) 100 mg BID GTB Last administered on 12/31/16 22:00; Admin Dose 100 MG; Start 12/30/16 at 09:00 Amlodipine Besylate (Norvasc) 10 mg DAILY GTB Last administered on 12/31/16 09 :27; Admin Dose 10 MG; Start 12/30/16 at 09:00 Hydrocortisone (Solu-Cortef) 10 mg BID IV Last administered on 12/31/16 21:09 ; Admin Dose 10 MG; Start 12/31/16 at 21:00 FREDERICK DAIGLE MD Dec 31, 2016 22:38
--- NOTE | 2016-12-31 23:17 | PN ---
Date/Time of Note Date/Time of Note DATE: 12/31/16 TIME: 23:16 Assessment/Plan Lines/Catheters IV Catheter Type (from [facility]): PICC Line Latif in Place (from [facility]): Yes Assessment/Plan Chief Complaint/Hosp Course 1. Pneumoperitoneum. I doubt this is from an abdominal source; however, differential diagnosis includes air from feeding tube placement versus intestinal rupture versus esophageal rupture versus tracheal rupture or leak from the tracheostomy versus barotrauma from pneumothorax. The findings have been since the , which is right after her code when the trach was removed and an ET tube was placed. The findings are also prior to the placement of the percutaneous endoscopic gastrostomy. -supportive measures -antibiotics -ENT following -CTX following 2. Pneumomediastinum, pneumothorax, and subcutaneous emphysema, probably secondary to above process. Thoracic surgery following 3. Code arrest. Probably aspiration. Continue medical optimization and pulmonary support. Continue antibiotics. 4. History of oral cancer status post resection with possible recurrence. Will defer to ENT. No active bleeding at this time. 5. Anemia, multifactorial. Continue close monitoring and transfuse as needed. 6. Leukocytosis, possible multifactorial with adrenal insufficiency requiring steroids versus acute infectious process, and/or systemic inflammatory response syndrome. Continue antibiotics, supportive care, and steroids, weaning per medical service. Improving 7. History of atrial fibrillation, currently in sinus. 8. Dysphagia, status post percutaneous endoscopic gastrostomy on feedings, which are held. However, if the CT is negative for intraabdominal source, may resume feeding. 9. History of hypertension. Continue medical optimization. Thank you Problems: Subjective 24 Hr Interval Summary No fever, chills, vomiting. No cough. No sz. No rash. No bloating. No pyuria. More awake and opens eyes. No blood per mouth, rectum, urine, or trach site. No color changes. Exam/Review of Systems Vital Signs Vitals Vital Signs Date Time Temp Pulse Resp B/P Pulse Ox O2 Delivery O2 Flow Rate FiO2 12/31/16 22:00 68 10 130/79 100 Mechanical Ventilator 12/31/16 21:05 30 12/31/16 20:00 97.9 Intake and Output 12/30/16 12/30/16 12/31/16 15:00 23:00 07:00 Intake Total 400 ml 747.2 ml 464.7 ml Output Total 1255 ml 850 ml 610 ml Balance -855 ml -102.8 ml -145.3 ml Exam Free Text/Dictation GENERAL: Ventilated. Noncommunicative. BMI of 30. HEENT: Pupils are sluggish. No scleral icterus. Mucous membranes are moist. NECK: Trach in place. Minimal crepitus. JVD not visible. PULMONARY: Minimally coarse. Normal effort. No wheezing. CARDIAC: S1, S2 present. ABDOMEN: Soft and minimally tender to deep palpation with grimacing. PEG in place. VASCULAR: Capillary refill is 2 seconds. NEUROLOGIC: Opens eyes and tracks. PSYCHIATRIC: Noncommunicative. SKIN: No rashes, no jaundice. Diffuse edema. LYMPHATICS: No inguinal or cervical lymph nodes. Results Result Diagram: 12/31/1639912/31/16399 PATRICK QUINTERO MD Dec 31, 2016 23:17
[2017-01-01] VITALS (34 sets, daily range): BP systolic 102–140; BP diastolic 61–88; PULSE 60–73; RESP 0–26
[2017-01-01] MEDS: IPRATROPIUM (HFA) 12.9 GM INHALER INH SCH ×4 (02:05→20:27)
[2017-01-01] MEDS: LEVALBUTEROL (HFA) 15 GM INHALER INH SCH ×4 (02:05→20:27)
[2017-01-01] MEDS: PROPOFOL 100 ML IV SCH ×5 (03:04→23:02)
[2017-01-01 04:38] LABS: ADD SCAN DIFF NO
[2017-01-01 04:52] LABS: BASOPHILS % 0.3 % (0.0-2.0); EOSINOPHILS # 0.1 10^3/ul (0.0-0.5); HEMATOCRIT 34.1 % (37.0-47.0); HEMOGLOBIN 11.2 g/dl (12.0-16.0); LYMPHOCYTES # 1.1 10^3/ul (0.8-2.9); LYMPHOCYTES % 9.2 % (15.0-51.0); MEAN CORPUSCULAR HEMOGLOBIN 30.8 pg (29.0-33.0); MEAN CORPUSCULAR HGB CONC 32.8 g/dl (32.0-37.0); MEAN CORPUSCULAR VOLUME 93.7 fl (82.0-101.0); MEAN PLATELET VOLUME 11.3 fl (7.4-10.4); MONOCYTES % 8.6 % (0.0-11.0); NEUTROPHIL # 8.9 10^3/ul (1.6-7.5); NEUTROPHILS % 76.5 % (39.0-77.0); PLATELET COUNT 245 10^3/UL (140-415); RED BLOOD COUNT 3.64 10^6/ul (4.20-5.40); RED CELL DISTRIBUTION WIDTH 16.9 % (11.5-14.5); WHITE BLOOD COUNT 11.7 10^3/ul (4.8-10.8)
[2017-01-01 05:00] LABS: POTASSIUM 4.1 mmol/L (3.5-5.1)
[2017-01-01 05:02] LABS: CREATININE 0.61 mg/dl (0.44-1.00)
[2017-01-01] MEDS: METOCLOPRAMIDE 10 MG INJ IV SCH ×3 (05:02→21:00)
[2017-01-01] MEDS: LEVOTHYROXINE 75 MCG TAB GTB SCH (05:02)
[2017-01-01] MEDS: PANTOPRAZOLE 40 MG INJ IV SCH (05:02)
[2017-01-01 05:03] LABS: CALCIUM 8.5 mg/dl (8.4-10.2)
[2017-01-01 05:04] LABS: MAGNESIUM 2.2 mg/dl (1.7-2.5)
[2017-01-01] MEDS: NITROGLYCERIN 2% 1 GM OINT PKT TD SCH ×3 (05:07→18:00)
--- NOTE | 2017-01-01 07:36 | PN ---
DATE: 12/31/2016 CARDIOLOGY FOLLOWUP SUBJECTIVE: Discussed with the staff. ____. The patient remains intubated on the vent. Blood pre ssure has remained stable. Patient currently sedated, ____. MEDICATIONS: Reviewed. PHYSICAL EXAMINATION: VITAL SIGNS: Temperature 98.2, heart rate of 68, blood pressure 117/76, respiratory rate of 30, sat urating 100%. HEENT: Normocephalic, atraumatic. Status post intubation on the vent. NECK: Status post previous tracheostomy, which is closed. CARDIOVASCULAR: Regular rate and rhythm, systolic murmur. PULMONARY: With no wheezes, minimal rhonchi at the base. GASTROINTESTINAL: Obese, soft, nontender. EXTREMITIES: Positive edema. NEUROLOGIC: Sedated. LABORATORY: WBC of 11.7, hemoglobin 10.8, platelets 258. Sodium 142, potassium 3.2, BUN of 20, cre atinine 0.59, glucose 135. Magnesium is 2.5. Chest x-ray today shows diffuse bilateral interstitia l opacity. There is a tiny left apical pneumothorax. ASSESSMENT AND PLAN: 1. Hypoxemic respiratory failure, status post tracheostomy previously, currently intubated on the v ent. 2. Status post cardiopulmonary arrest secondary to respiratory failure, arrest. 3. Pneumonia. 4. History of ventricular arrhythmia with frequent PVCs, currently improved with correction of elec trolytes. 5. ____ 6. Anemia. 7. History of paroxysmal atrial fibrillation, currently in sinus rhythm. 8. Dysphagia, status post PEG placement. 9. History of critical care myopathy. RECOMMENDATIONS: Continue the vent support. Awaiting trach placement. Electrolytes including pota ssium and magnesium will be replaced as needed. Continue with the ICU care. Beta shanta as tolera chirag will be continued. Monitor on telemetry in the ICU. Dictated By: FRANCISCO BRIGGS/BALDO Conf#: [id number] DID#: [id number] CC: NINA MACIEL DO;*EndCC*
[2017-01-01] MEDS: HYDROCODONE/APAP (5/325) TAB PO SCH ×3 (08:43→20:59)
[2017-01-01] MEDS: FLUTICASONE 0.05% 16 GM NAS SPRAY NASAL SCH ×2 (08:44→21:21)
[2017-01-01] MEDS: AMLODIPINE 10 MG TAB GTB SCH (08:44)
[2017-01-01] MEDS: predniSONE 20 MG TAB GTB SCH (08:44)
[2017-01-01] MEDS: CITALOPRAM 20 MG TAB GTB SCH (08:44)
[2017-01-01] MEDS: METOPROLOL 100 MG TAB GTB SCH ×2 (08:45→21:00)
--- NOTE | 2017-01-01 08:53 | PN ---
DATE: 01/01/2017 SUBJECTIVE: The patient remains stable, on full ventilatory support. No other acute events noted. No hemoptysis, hematemesis, or hematochezia. The patient is arousable off sedation. No other even ts noted. OBJECTIVE: VITAL SIGNS: Blood pressure 133/80, respirations 14, pulse 62, temperature 98.2. I'S AND O'S: The patient had 2.3 L in, 2 L out. HEENT: Head is normocephalic. NECK: Supple. Dressing over the tracheostomy site. HEART: Regular rate. LUNGS: Show diminished breath sounds at base. ABDOMEN: Soft, nontender to palpation. No rebound or guarding. EXTREMITIES: Negative for clubbing, cyanosis. Positive edema. DERMATOLOGIC: No rashes. MUSCULOSKELETAL: No joint effusions. NEUROLOGIC: No change in exam. MEDICATIONS: The patient's medications have been reviewed. LABORATORY DATA: Sodium 141, potassium 4.1, chloride 108, BUN 22, creatinine 0.61. White count 11. 7, hemoglobin 11.2, hematocrit 34.1, platelet count is 245. IMAGING: The patient's chest x-ray shows bilateral subcutaneous emphysema, probable small left pleu ral effusion, tiny left apical pneumothorax, bilateral interstitial opacities, improved from prior i maging study. ASSESSMENT AND PLAN: 1. Ventilator-dependent respiratory failure. The patient's vent settings and ABG has been reviewed , currently stable, the patient may undergo tracheostomy placement with Dr. Carpio. This is to be c oordinated pulmonary and ENT in the future. We will continue current vent settings. 2. Pneumoperitoneum, mediastinum and pneumothorax. The patient has been evaluated by general surge ry and CT surgery. At this point, will continue to monitor. No plan for intervention. 3. Acute tracheal bleed, now resolved. The patient has been evaluated by ENT, Dr. Carpio, follow u p per recommendations. Possible replacement of trach. 4. Sepsis secondary to aspiration pneumonia, urinary tract infection. The patient has completed an tibiotic course. We will monitor off antibiotics. Cultures have been negative to date. 5. Anemia. The patient is status post blood transfusion. Hemoglobin level has been stable, contin ue to monitor. 6. Leukocytosis, etiology is likely secondary to steroids. We will discontinue Solu-Medrol and mon itor. 7. History of adrenal insufficiency. The patient is currently on prednisone and will discontinue s tress steroids, monitor hemodynamics closely. 8. History of tongue cancer status post surgical resection. The patient is being followed by ENT. 9. Paroxysmal atrial fibrillation, currently in sinus rhythm. Continue medical management. 10. Hypothyroidism. Continue Synthroid. 11. Hypertension. Continue current blood pressure regimen. 12. Dysphagia/PEG. Continue tube feeding. 13. Acute diastolic heart failure. Patient remains decompensated. Will discontinue Diamox. Will start the patient on Lasix 20 mg IV b.i.d., monitor electrolytes closely. 14. Hypokalemia, improved. We will continue to monitor. 15. History of critical care myopathy. Continue to observe. 16. Gastrointestinal and deep venous thrombosis prophylaxis. Will continue proton pump inhibitor, and sequential leg squeezers. 17. Status post cardiopulmonary arrest secondary to respiratory failure. Dictated By: NINA PEREIRA/BALDO Conf#: [id number] DID#: [id number]
--- NOTE | 2017-01-01 09:50 | CONS ---
Date/Time of Note Date/Time of Note DATE: 01/01/17 TIME: 09:47 Assessment/Plan Assessment/Plan Additional Assessment/Plan Ventilator settings are AC of 10, tidal volume 400, PEEP of 0, 30% FiO2. Assessment recommendations; 1. Patient admitted for respiratory failure and brief cardiac arrest after undergoing tracheostomy change at [facility]. 2. Recent tracheostomy due to upper airway obstruction, patient with a history of tongue cancer. 3. Stable hypertension and hypothyroidism. 4. Currently no evidence of any infective process. Continue current treatment. Patient will need to have a redo tracheostomy performed. Consultation Date/Type/Reason Admit Date/Time Dec 26, 2016 at 15:25 Initial Consult Date 12/26/16 Type of Consultation: Pulmonary/critical care Referring Provider: HILARY RUBIO MD 24 HR Interval Summary Free Text/Dictation Patient condition remains stable. Still on full ventilator support. Has remained hemodynamically stable. No untoward events reported. General exam; elderly lady, or intubated, sedated currently in no distress. Exam/Review of Systems Vital Signs Vitals Vital Signs Date Time Temp Pulse Resp B/P Pulse Ox O2 Delivery O2 Flow Rate FiO2 01/01/17 09:13 60 13 100 30 01/01/17 08:00 97.0 127/76 Mechanical Ventilator Intake and Output 12/31/16 12/31/16 01/01/17 15:00 23:00 07:00 Intake Total 739.76 ml 899.76 ml 724.256 ml Output Total 650 ml 600 ml 700 ml Balance 89.76 ml 299.76 ml 24.256 ml Exam H EENT exam is; supple neck, no JVD. No lymphadenopathy. Midline trachea. No thyromegaly. There is a dressing applied over the prior tracheostomy site. Pupils are midsize. Fair dentition. Orally intubated. There is very minimal soft tissue swelling involving the right lateral neck. Next Chest examination; clear to auscultation bilaterally. S1-S2 audible, no murmurs. Regular rhythm. Abdomen examination; soft, no organomegaly. Bowel sounds audible. Extremity examination; no peripheral edema. Pulses 1+ bilaterally. RESISTOR INSPECTOR examination; patient is sedated. Results Result Diagram: 01/01/17 0350 01/01/17 0350 Results 24 hrs Laboratory Tests Test 01/01/17 03:50 Anion Gap 11 Basophils # 0.0 Basophils % 0.3 Blood Urea Nitrogen 22 H Calcium Level 8.5 Carbon Dioxide Level 26 Chloride Level 108 Creatinine 0.61 Eosinophils # 0.1 Eosinophils % 1.0 Glucose Level 145 Hematocrit 34.1 L Hemoglobin 11.2 L Lymphocytes # 1.1 Lymphocytes % 9.2 L Magnesium Level 2.2 Mean Corpuscular Hemoglobin 30.8 Mean Corpuscular Hemoglobin Concent 32.8 Mean Corpuscular Volume 93.7 Mean Platelet Volume 11.3 H Monocytes # 1.0 H Monocytes % 8.6 Neutrophils # 8.9 H Neutrophils % 76.5 Nucleated Red Blood Cells # 0.0 Nucleated Red Blood Cells % 0.0 Phosphorus Level 3.0 Platelet Count 245 Potassium Level 4.1 Red Blood Count 3.64 L Red Cell Distribution Width 16.9 H Sodium Level 141 White Blood Count 11.7 H Medications Medications Current Medications Ondansetron HCl (Zofran Inj) 4 mg Q6H PRN IV NAUSEA AND/OR VOMITING; Start at 16:00 Pantoprazole 40 mg 40 mg DAILY@06 IV Last administered on 01/01/17 05:02; Admin Dose 40 MG; Start 12/27/16 at 06:00 Propofol 100 ml @ 3.12 mls/hr Q12H IV Last administered on 01/01/17 08:45; Admin Dose 24.96 MLS/HR; Start 12/26/16 at 17:00 Norepinephrine/ Dextrose (Levophed/D5W) 500 ml @ 1.87 mls/hr TITRATE IV ; Start 12/26/16 at 20:30 Metoclopramide HCl (Reglan) 10 mg Q8 IV Last administered on 01/01/17 05:02; Admin Dose 10 MG; Start 12/27/16 at 06:00 Acetaminophen (Tylenol Liquid) 650 mg Q4H PRN GTB PAIN AND OR ELEVATED TEMP; Start 12/27/16 at 09:00 Acetazolamide (Diamox) 500 mg DAILY IV Last administered on 12/31/16 09:29; Admin Dose 500 MG; Start 12/27/16 at 11:00; Status Future Hold Atorvastatin Calcium (Lipitor) 40 mg HS GTB Last administered on 12/31/16 21: 09; Admin Dose 40 MG; Start 12/27/16 at 21:00 Citalopram Hydrobromide (Celexa) 40 mg DAILY GTB Last administered on 08:44; Admin Dose 40 MG; Start 12/27/16 at 09:00 Fluticasone Propionate (Flonase 0.05% Nasal) 2 spray BID NASAL Last administered on 01/01/17 08:44; Admin Dose 2 SPRAY; Start 12/27/16 at 11:00 Levothyroxine Sodium (Synthroid) 75 mcg DAILY@06 GTB Last administered on 05:02; Admin Dose 75 MCG; Start 12/28/16 at 06:00 Prednisone (Prednisone) 20 mg DAILY GTB Last administered on 01/01/17 08:44; Admin Dose 20 MG; Start 12/27/16 at 09:00 Zolpidem Tartrate (Ambien) 5 mg HS PRN PO INSOMNIA; Start 12/27/16 at 09:00 IV Flush (NS 10 ml) 10 ml PRN PRN IV IV PROTOCOL; Start 12/27/16 at 16:00 Nitroglycerin (Nitroglycerin 2% Oint) 0.5 inch Q6 TD Last administered on 06:06; Admin Dose 0.5 INCH; Start 12/29/16 at 18:00 Metoprolol Tartrate (Lopressor) 100 mg BID GTB Last administered on 01/01/17 08:45; Admin Dose 100 MG; Start 12/30/16 at 09:00 Amlodipine Besylate (Norvasc) 10 mg DAILY GTB Last administered on 01/01/17 08 :44; Admin Dose 10 MG; Start 12/30/16 at 09:00 Acetaminophen/ Hydrocodone Bitart ([place] (5/325)) 1 tab Q6H PO Last administered on 01/01/17 08:43; Admin Dose 1 TAB; Start 01/01/17 at 09:00 EMILIANO HICKS Jan 01, 2017 09:50
--- NOTE | 2017-01-01 10:05 | PN ---
DATE: 01/01/2017 CARDIOLOGY FOLLOWUP SUBJECTIVE: Discussed with the staff. Rhythm strip was reviewed. The patient remains in sinus rhy thm. Has very less frequent PVC noted. Remains status post tracheostomy on the vent. Unable to we an off so far. MEDICATIONS: Reviewed as per medical reconciliation, personally reviewed. PHYSICAL EXAMINATION: VITAL SIGNS: Temperature 98.2, heart rate of 64, blood pressure 132/80, respiration rate of 18, sat urating 100%. HEENT: Normocephalic, atraumatic. Pupils are equal. NECK: Supple. Tracheostomy on the vent. CARDIOVASCULAR: Regular rate and rhythm, systolic murmur. PULMONARY: Mild rhonchi, diffuse. GASTROINTESTINAL: Soft. Positive mild ascites. No rebound or guarding. Status post PEG placement . EXTREMITIES: Positive diffuse lower extremity edema. NEUROLOGIC: Sedated now. PSYCHIATRIC: Appears to be calm and pleasant. LABORATORY: WBC of 11.7, hemoglobin 11.2, platelets 245. Sodium 141, potassium 4.1, BUN of 22, cre atinine 0.61, glucose of 145. Magnesium is 2.2. ASSESSMENT AND PLAN: 1. Hypoxemia respiratory failure, status post tracheostomy, previously. Currently intubated on th e vent. 2. Status post cardiopulmonary arrest secondary to respiratory failure. 3. Pneumonia. 4. History of ventricular arrhythmia with frequent PVCs, currently stable with correction of electr olytes. 5. Electrolyte abnormalities and hypokalemia. 6. Anemia. 7. History of paroxysmal atrial fibrillation, currently remains in sinus rhythm. 8. Dysphagia, status post PEG placement. 9. History of critical care myopathy. RECOMMENDATIONS: We will continue the vent support. Tracheostomy placement is pending. Electrolyt es including potassium and magnesium to be replaced as needed. Continue to monitor on telemetry. D iuresis will be continued as tolerated. supplement will be continued as well. We will contin ue to closely monitor. Dictated By: FRANCISCO BLACKWOOD MD AV/BALDO Conf#: [id number] DID#: [id number] CC: NINA MACIEL DO;*EndCC*
--- NOTE | 2017-01-01 11:48 | CONS ---
Date/Time of Note Date/Time of Note DATE: 01/01/17 TIME: 11:47 Assessment/Plan Assessment/Plan Chief Complaint/Hosp Course ASSESSMENT AND PLAN: This is a 66-year-old female who presents with: Anemia n -cytic with increased RDW, WITH SIGNIFICANT DROP H/H DURING HOSPITALIZATION post 2 u PRBC + COMPONENT ACD HX ANEMIA of chronic disease. Continue to monitor hemoglobin and hematocrit levels. OBSERVE FOR BLEEDING AND HEMOLYSIS TRANSFUSE TO KEEP HB ABOVE 8 History of tongue cancer status post surgical resection. The possibility of recurrence at the outside hospital revision tracheostomy- PER ENT ENT F-UP Leukocytosis. Etiology is likely multifactorial secondary to steroids, sepsis. Status post code arrest. Etiology may be secondary to aspiration, hypoxemia. The patient had spontaneous return of circulation. Ventilator dependent respiratory failure. The patient is status post intubation. Currently stable. ABG has been reviewed. Vent settings have been reviewed. We will continue to monitor. Follow up with Pulmonary. Acute tracheal bleed. Underlying etiology is unclear. The patient's tracheostomy was removed. ENT consult for further evaluation with Dr. Carpio and monitor closely. Sepsis secondary to likely aspiration pneumonia. We will continue current broad spectrum antibiotics. Follow up cultures. Follow up with Infectious Disease. History of adrenal insufficiency. post stress dose of hydrocortisone. Paroxysmal atrial fibrillation, currently in sinus rhythm. Continue to monitor. Continue medical management. Hypothyroidism. ON Synthroid. Hypertension. Blood pressure is currently normotensive. Continue to monitor. Dysphagia, status post PEG. History of volume overload, diastolic heart failure. History of critical care myopathy. Continue to monitor. Gastrointestinal and deep venous thrombosis prophylaxis. Continue proton pump inhibitor and sequential leg squeezers. Problems: Consultation Date/Type/Reason Admit Date/Time Dec 26, 2016 at 15:25 Initial Consult Date 12/29/16 Type of Consultation: [facility] Referring Provider: HILARY RUBIO MD 24 HR Interval Summary Free Text/Dictation Patient condition remains stable. Still on full ventilator support. Has remained hemodynamically stable. No untoward events reported. COUNT STABLE NO BLEEDING Exam/Review of Systems Vital Signs Vitals Vital Signs Date Time Temp Pulse Resp B/P Pulse Ox O2 Delivery O2 Flow Rate FiO2 01/01/17 11:14 60 14 100 30 01/01/17 10:00 132/73 Mechanical Ventilator 01/01/17 08:00 97.0 Intake and Output 312/31/16 01/01/17 14:59 22:59 06:59 Intake Total 701.04 ml 899.76 ml 768.016 ml Output Total 650 ml 600 ml 800 ml Balance 51.04 ml 299.76 ml -31.984 ml Exam HEENT: Head is normocephalic. NECK: Supple. Dressing over the tracheostomy site. HEART: Regular rate. LUNGS: Show diminished breath sounds at base. ABDOMEN: Soft, nontender to palpation. No rebound or guarding. EXTREMITIES: Negative for clubbing, cyanosis. Positive edema. DERMATOLOGIC: No rashes. MUSCULOSKELETAL: No joint effusions. NEUROLOGIC: No change in exam. Results Result Diagram: 01/01/17 0350 01/01/17 0350 Results 24 hrs Laboratory Tests Test 01/01/17 03:50 White Blood Count 11.7 H Red Blood Count 3.64 L Hemoglobin 11.2 L Hematocrit 34.1 L Mean Corpuscular Volume 93.7 Mean Corpuscular Hemoglobin 30.8 Mean Corpuscular Hemoglobin Concent 32.8 Red Cell Distribution Width 16.9 H Platelet Count 245 Mean Platelet Volume 11.3 H Neutrophils % 76.5 Lymphocytes % 9.2 L Monocytes % 8.6 Eosinophils % 1.0 Basophils % 0.3 Nucleated Red Blood Cells % 0.0 Neutrophils # 8.9 H Lymphocytes # 1.1 Monocytes # 1.0 H Eosinophils # 0.1 Basophils # 0.0 Nucleated Red Blood Cells # 0.0 Sodium Level 141 Potassium Level 4.1 Chloride Level 108 Carbon Dioxide Level 26 Anion Gap 11 Blood Urea Nitrogen 22 H Creatinine 0.61 Glucose Level 145 Calcium Level 8.5 Phosphorus Level 3.0 Magnesium Level 2.2 Medications Medications Current Medications Ondansetron HCl (Zofran Inj) 4 mg Q6H PRN IV NAUSEA AND/OR VOMITING; Start at 16:00 Pantoprazole 40 mg 40 mg DAILY@06 IV Last administered on 01/01/17 05:02; Admin Dose 40 MG; Start 12/27/16 at 06:00 Propofol 100 ml @ 3.12 mls/hr Q12H IV Last administered on 01/01/17 08:45; Admin Dose 24.96 MLS/HR; Start 12/26/16 at 17:00 Norepinephrine/ Dextrose (Levophed/D5W) 500 ml @ 1.87 mls/hr TITRATE IV ; Start 12/26/16 at 20:30 Metoclopramide HCl (Reglan) 10 mg Q8 IV Last administered on 01/01/17 05:02; Admin Dose 10 MG; Start 12/27/16 at 06:00 Acetaminophen (Tylenol Liquid) 650 mg Q4H PRN GTB PAIN AND OR ELEVATED TEMP; Start 12/27/16 at 09:00 Acetazolamide (Diamox) 500 mg DAILY IV Last administered on 12/31/16 09:29; Admin Dose 500 MG; Start 12/27/16 at 11:00; Status Future Hold Atorvastatin Calcium (Lipitor) 40 mg HS GTB Last administered on 12/31/16 21: 09; Admin Dose 40 MG; Start 12/27/16 at 21:00 Citalopram Hydrobromide (Celexa) 40 mg DAILY GTB Last administered on 08:44; Admin Dose 40 MG; Start 12/27/16 at 09:00 Fluticasone Propionate (Flonase 0.05% Nasal) 2 spray BID NASAL Last administered on 01/01/17 08:44; Admin Dose 2 SPRAY; Start 12/27/16 at 11:00 Levothyroxine Sodium (Synthroid) 75 mcg DAILY@06 GTB Last administered on 05:02; Admin Dose 75 MCG; Start 12/28/16 at 06:00 Prednisone (Prednisone) 20 mg DAILY GTB Last administered on 01/01/17 08:44; Admin Dose 20 MG; Start 12/27/16 at 09:00 Zolpidem Tartrate (Ambien) 5 mg HS PRN PO INSOMNIA; Start 12/27/16 at 09:00 IV Flush (NS 10 ml) 10 ml PRN PRN IV IV PROTOCOL; Start 12/27/16 at 16:00 Nitroglycerin (Nitroglycerin 2% Oint) 0.5 inch Q6 TD Last administered on 06:06; Admin Dose 0.5 INCH; Start 12/29/16 at 18:00 Metoprolol Tartrate (Lopressor) 100 mg BID GTB Last administered on 01/01/17 08:45; Admin Dose 100 MG; Start 12/30/16 at 09:00 Amlodipine Besylate (Norvasc) 10 mg DAILY GTB Last administered on 01/01/17 08 :44; Admin Dose 10 MG; Start 12/30/16 at 09:00 Acetaminophen/ Hydrocodone Bitart ([place] (5/325)) 1 tab Q6H PO Last administered on 01/01/17 08:43; Admin Dose 1 TAB; Start 01/01/17 at 09:00 FREDERICK DAIGLE MD Jan 01, 2017 11:48
--- NOTE | 2017-01-01 12:16 | PN ---
DATE: 01/01/2017 SUBJECTIVE: No events overnight. No fevers. The patient is lying comfortably in bed. VITAL SIGNS: Temperature 97, pulse 60, respirations 14, blood pressure 132/73, saturation 99 on 30 FIO2. LABORATORY: WBC 11.7, platelets 245, no shift, no bands. BUN 22, creatinine 0.61. INDWELLINGS: Endotracheal tube, PEG, Latif, PICC line. PHYSICAL EXAMINATION: GENERAL: This is a fragile, elderly woman who is lying comfortably in bed. HEENT: Head atraumatic, normocephalic. Sclerae anicteric. Buccal mucosa dry. NECK: Supple. CHEST: Rise symmetrical. Breath sounds diminished. HEART: S1, S2. ABDOMEN: Soft. Bowel tones present. EXTREMITIES: Without cyanosis. ASSESSMENT: 1. Status post sepsis. 2. Status post cardiopulmonary arrest. 3. Acute respiratory failure. 4. Status post urinary tract infection and pneumonia. 5. Vancomycin-resistant Enterococcus stool colonization. 6. History of oral cancer. 7. Pneumoperitoneum, no active issues, surgery on case. PLAN: The patient remains stable off antibiotics. Continue present care. Panculture p.r.n. Dictated By: LORETO MCKEON CONDITIONER TUMBLER OPERATOR for MARY LEONARDO/NTS Conf#: [id number] DID#: [id number]
--- NOTE | 2017-01-01 17:35 | RADRPT ---
PROCEDURE: XR Chest. CLINICAL INDICATION: Shortness of breath. TECHNIQUE: Single frontal view. COMPARISON: 12/31/2016. FINDINGS: The endotracheal tube and left arm PICC line are in satisfactory position. There is bilateral inter stitial disease consistent with pulmonary edema, unchanged. The lungs are otherwise clear. The heart is mildly enlarged. There is calcification in the aorta consistent with atherosclerosis. There is no pleural effusion. There is no pneumothorax. Mild bilateral neck subcutaneous emphysema seen previously is not visualized on the current study. IMPRESSION: 1. Endotracheal tube and left arm PICC line in satisfactory position. 2. Unchanged mild pulmonary edema. 3. Cardiomegaly and atherosclerosis. RPTAT: QQ .Guero Guadalupe MD, MD Date Time Electronically viewed and signed by .Guero Guadalupe MD, MD on 01/01/2017 17:35 .R/
[2017-01-01] MEDS: FUROSEMIDE 20 MG INJ IV SCH (18:21)
--- NOTE | 2017-01-01 19:09 | PN ---
Date/Time of Note Date/Time of Note DATE: 01/01/17 TIME: 19:08 Assessment/Plan Lines/Catheters IV Catheter Type (from Nrsg): PICC Line Latif in Place (from Nrsg): Yes Assessment/Plan Chief Complaint/Hosp Course Sp PTX PTX resolved will monitor CXR continue Vent Support Problems: Subjective 24 Hr Interval Summary Constitutional: improved Pain Control: mild Exam/Review of Systems Vital Signs Vitals Vital Signs Date Time Temp Pulse Resp B/P Pulse Ox O2 Delivery O2 Flow Rate FiO2 01/01/17 18:00 68 12 109/64 100 Mechanical Ventilator 01/01/17 17:16 30 01/01/17 16:00 97.2 Intake and Output 12/31/16 12/31/16 01/01/17 15:00 23:00 07:00 Intake Total 739.76 ml 899.76 ml 774.256 ml Output Total 650 ml 600 ml 760 ml Balance 89.76 ml 299.76 ml 14.256 ml Exam Neck: non-tender, supple Respiratory: clear to auscultation, normal air movement Cardiovascular: nl pulses, regular rate and rhythm Gastrointestinal: nl liver, spleen, non-tender, soft Results Result Diagram: 01/01/17 0350 01/01/17 0350 FANNY BLACK MD Jan 01, 2017 19:09
--- NOTE | 2017-01-01 19:19 | CONS ---
Date/Time of Note Date/Time of Note DATE: 01/01/17 TIME: 19:18 Assessment/Plan Assessment/Plan Additional Assessment/Plan Assessment/Plan Additional Assessment/Plan IMPRESSION: 1. Subcutaneous emphysema which is dissected into the peritoneum. 2. Left apical pneumothorax. 3. Pneumomediastinum. 4. Malfunctioning G-tube which is changed at bedside now. 5. Anemia. No active gastrointestinal bleeding is noted.bleeding from tracheostomy site 6. Vent-dependent respiratory failure. 7. Acute tracheal bleed. 8. Adrenal insufficiency for which patient is on steroids. 9. Leukocytosis, improving. 10. Atrial fibrillation. 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 Plan continue feeding,pt.has no signs of peritonitis,increase feeding to 50 cc/hr, which pt is tolerating Monitor H&H continue antibiotics Consultation Date/Type/Reason Admit Date/Time Dec 26, 2016 at 15:25 Initial Consult Date 12/26/16 Type of Consultation: [facility] Referring Provider: HILARY RUBIO MD 24 HR Interval Summary Subjective hx not possible: pt critical Constitutional: no complaints Exam/Review of Systems Vital Signs Vitals Vital Signs Date Time Temp Pulse Resp B/P Pulse Ox O2 Delivery O2 Flow Rate FiO2 01/01/17 18:00 68 12 109/64 100 Mechanical Ventilator 01/01/17 17:16 30 01/01/17 16:00 97.2 Intake and Output 12/31/16 12/31/16 01/01/17 15:00 23:00 07:00 Intake Total 739.76 ml 899.76 ml 774.256 ml Output Total 650 ml 600 ml 760 ml Balance 89.76 ml 299.76 ml 14.256 ml Exam Constitutional: alert, oriented, well developed Psych: nl mood/affect, no complaints Head: atraumatic, normocephalic Eyes: EOMI, PERRL, nl conjunctiva, nl lids, nl sclera ENMT: nl external ears & nose, nl lips & teeth, nl nasal mucosa & septum Neck: non-tender, supple Respiratory: clear to auscultation, normal air movement Cardiovascular: nl pulses, regular rate and rhythm Gastrointestinal: nl liver, spleen, non-tender, soft Musculoskeletal: nl extremities to inspection, nl gait and stance Extremities: normal pulses Neurological: S[employer] II-XII intact, nl mental status, nl speech, nl strength Skin: nl turgor, No rash or lesions Lymph: nl lymph nodes Results Result Diagram: 01/01/17 0350 01/01/17 0350 Results 24 hrs Laboratory Tests Test 01/01/17 03:50 White Blood Count 11.7 H Red Blood Count 3.64 L Hemoglobin 11.2 L Hematocrit 34.1 L Mean Corpuscular Volume 93.7 Mean Corpuscular Hemoglobin 30.8 Mean Corpuscular Hemoglobin Concent 32.8 Red Cell Distribution Width 16.9 H Platelet Count 245 Mean Platelet Volume 11.3 H Neutrophils % 76.5 Lymphocytes % 9.2 L Monocytes % 8.6 Eosinophils % 1.0 Basophils % 0.3 Nucleated Red Blood Cells % 0.0 Neutrophils # 8.9 H Lymphocytes # 1.1 Monocytes # 1.0 H Eosinophils # 0.1 Basophils # 0.0 Nucleated Red Blood Cells # 0.0 Sodium Level 141 Potassium Level 4.1 Chloride Level 108 Carbon Dioxide Level 26 Anion Gap 11 Blood Urea Nitrogen 22 H Creatinine 0.61 Glucose Level 145 Calcium Level 8.5 Phosphorus Level 3.0 Magnesium Level 2.2 Medications Medications Current Medications Ondansetron HCl (Zofran Inj) 4 mg Q6H PRN IV NAUSEA AND/OR VOMITING; Start at 16:00 Pantoprazole 40 mg 40 mg DAILY@06 IV Last administered on 01/01/17 05:02; Admin Dose 40 MG; Start 12/27/16 at 06:00 Propofol 100 ml @ 2.25 mls/hr Q12H IV Last administered on 01/01/17 17:20; Admin Dose 18 MLS/HR; Start 12/26/16 at 17:00 Norepinephrine/ Dextrose (Levophed/D5W) 500 ml @ 1.87 mls/hr TITRATE IV ; Start 12/26/16 at 20:30 Metoclopramide HCl (Reglan) 10 mg Q8 IV Last administered on 01/01/17 14:27; Admin Dose 10 MG; Start 12/27/16 at 06:00 Acetaminophen (Tylenol Liquid) 650 mg Q4H PRN GTB PAIN AND OR ELEVATED TEMP; Start 12/27/16 at 09:00 Acetazolamide (Diamox) 500 mg DAILY IV Last administered on 12/31/16 09:29; Admin Dose 500 MG; Start 12/27/16 at 11:00; Status Future Hold Atorvastatin Calcium (Lipitor) 40 mg HS GTB Last administered on 12/31/16 21: 09; Admin Dose 40 MG; Start 12/27/16 at 21:00 Citalopram Hydrobromide (Celexa) 40 mg DAILY GTB Last administered on 08:44; Admin Dose 40 MG; Start 12/27/16 at 09:00 Fluticasone Propionate (Flonase 0.05% Nasal) 2 spray BID NASAL Last administered on 01/01/17 08:44; Admin Dose 2 SPRAY; Start 12/27/16 at 11:00 Levothyroxine Sodium (Synthroid) 75 mcg DAILY@06 GTB Last administered on 05:02; Admin Dose 75 MCG; Start 12/28/16 at 06:00 Prednisone (Prednisone) 20 mg DAILY GTB Last administered on 01/01/17 08:44; Admin Dose 20 MG; Start 12/27/16 at 09:00 Zolpidem Tartrate (Ambien) 5 mg HS PRN PO INSOMNIA; Start 12/27/16 at 09:00 IV Flush (NS 10 ml) 10 ml PRN PRN IV IV PROTOCOL; Start 12/27/16 at 16:00 Nitroglycerin (Nitroglycerin 2% Oint) 0.5 inch Q6 TD Last administered on 06:06; Admin Dose 0.5 INCH; Start 12/29/16 at 18:00 Metoprolol Tartrate (Lopressor) 100 mg BID GTB Last administered on 01/01/17 08:45; Admin Dose 100 MG; Start 12/30/16 at 09:00 Amlodipine Besylate (Norvasc) 10 mg DAILY GTB Last administered on 01/01/17 08 :44; Admin Dose 10 MG; Start 12/30/16 at 09:00 Acetaminophen/ Hydrocodone Bitart ([place] (5/325)) 1 tab Q6H PO Last administered on 01/01/17 14:28; Admin Dose 1 TAB; Start 01/01/17 at 09:00 ALYSSA THOMPSON MD Jan 01, 2017 19:19
[2017-01-01] MEDS: ATORVASTATIN 40 MG TAB GTB SCH (21:00)
--- NOTE | 2017-01-01 21:18 | PN ---
Date/Time of Note Date/Time of Note DATE: 01/01/17 TIME: 21:18 Assessment/Plan Lines/Catheters IV Catheter Type (from [facility]): PICC Line Latif in Place (from [facility]): Yes Assessment/Plan Chief Complaint/Hosp Course 1. Pneumoperitoneum. I doubt this is from an abdominal source; however, differential diagnosis includes air from feeding tube placement versus intestinal rupture versus esophageal rupture versus tracheal rupture or leak from the tracheostomy versus barotrauma from pneumothorax. The findings have been since the , which is right after her code when the trach was removed and an ET tube was placed. The findings are also prior to the placement of the percutaneous endoscopic gastrostomy. -supportive measures -antibiotics -ENT following -CTX following 2. Pneumomediastinum, pneumothorax, and subcutaneous emphysema, probably secondary to above process. Thoracic surgery following 3. Code arrest. Probably aspiration. Continue medical optimization and pulmonary support. Continue antibiotics. 4. History of oral cancer status post resection with possible recurrence. Will defer to ENT. No active bleeding at this time. 5. Anemia, multifactorial. Continue close monitoring and transfuse as needed. 6. Leukocytosis, possible multifactorial with adrenal insufficiency requiring steroids versus acute infectious process, and/or systemic inflammatory response syndrome. Continue antibiotics, supportive care, and steroids, weaning per medical service. Improving 7. History of atrial fibrillation, currently in sinus. 8. Dysphagia, status post percutaneous endoscopic gastrostomy on feedings, which are held. However, if the CT is negative for intraabdominal source, may resume feeding. 9. History of hypertension. Continue medical optimization. Thank you Problems: Subjective 24 Hr Interval Summary No fever, chills, vomiting. No cough. No sz. No rash. No bloating. No pyuria. More awake and opens eyes. No blood per mouth, rectum, urine, or trach site. No color changes. Exam/Review of Systems Vital Signs Vitals Vital Signs Date Time Temp Pulse Resp B/P Pulse Ox O2 Delivery O2 Flow Rate FiO2 01/01/17 20:00 30 01/01/17 20:00 73 12 103/67 99 01/01/17 19:00 98.3 Mechanical Ventilator Intake and Output 12/31/16 12/31/16 01/01/17 15:00 23:00 07:00 Intake Total 739.76 ml 899.76 ml 774.256 ml Output Total 650 ml 600 ml 760 ml Balance 89.76 ml 299.76 ml 14.256 ml Exam Free Text/Dictation GENERAL: Ventilated. Noncommunicative. BMI of 30. HEENT: Pupils are sluggish. No scleral icterus. Mucous membranes are moist. NECK: Trach in place. Minimal crepitus. JVD not visible. PULMONARY: Minimally coarse. Normal effort. No wheezing. CARDIAC: S1, S2 present. ABDOMEN: Soft and minimally tender to deep palpation with grimacing. PEG in place. VASCULAR: Capillary refill is 2 seconds. NEUROLOGIC: Opens eyes and tracks. PSYCHIATRIC: Noncommunicative. SKIN: No rashes, no jaundice. Diffuse edema. LYMPHATICS: No inguinal or cervical lymph nodes. Results Result Diagram: 01/01/17 0350 01/01/17 0350 PATRICK QUINTERO MD Jan 01, 2017 21:18
[2017-01-02] VITALS (35 sets, daily range): BP systolic 96–142; BP diastolic 59–96; PULSE 60–77; RESP 14–18
[2017-01-02] MEDS: NITROGLYCERIN 2% 1 GM OINT PKT TD SCH ×5 (00:36→18:00)
[2017-01-02] MEDS: LEVALBUTEROL (HFA) 15 GM INHALER INH SCH ×4 (02:13→20:25)
[2017-01-02] MEDS: IPRATROPIUM (HFA) 12.9 GM INHALER INH SCH ×4 (02:13→20:25)
--- NOTE | 2017-01-02 02:28 | PN ---
Date/Time of Note Date/Time of Note DATE: 01/02/17 TIME: 02:27 Assessment/Plan Lines/Catheters IV Catheter Type (from [facility]): PICC Line Latif in Place (from [facility]): Yes Assessment/Plan Chief Complaint/Hosp Course 1. Pneumoperitoneum. I doubt this is from an abdominal source; however, differential diagnosis includes air from feeding tube placement versus intestinal rupture versus esophageal rupture versus tracheal rupture or leak from the tracheostomy versus barotrauma from pneumothorax. The findings have been since the 16, which is right after her code when the trach was removed and an ET tube was placed. The findings are also prior to the placement of the percutaneous endoscopic gastrostomy. -supportive measures -antibiotics -ENT following -CTX following 2. Pneumomediastinum, pneumothorax, and subcutaneous emphysema, probably secondary to above process. Thoracic surgery following 3. Code arrest. Probably aspiration. Continue medical optimization and pulmonary support. Continue antibiotics. 4. History of oral cancer status post resection with possible recurrence. Will defer to ENT. No active bleeding at this time. 5. Anemia, multifactorial. Continue close monitoring and transfuse as needed. 6. Leukocytosis, possible multifactorial with adrenal insufficiency requiring steroids versus acute infectious process, and/or systemic inflammatory response syndrome. Continue antibiotics, supportive care, and steroids, weaning per medical service. Improving 7. History of atrial fibrillation, currently in sinus. 8. Dysphagia, status post percutaneous endoscopic gastrostomy on feedings, which are held. However, if the CT is negative for intraabdominal source, may resume feeding. 9. History of hypertension. Continue medical optimization. Thank you Problems: Subjective 24 Hr Interval Summary No fever, chills, vomiting. No cough. No sz. No rash. No bloating. No pyuria. More awake and opens eyes. No blood per mouth, rectum, urine, or trach site. No color changes. Exam/Review of Systems Vital Signs Vitals Vital Signs Date Time Temp Pulse Resp B/P Pulse Ox O2 Delivery O2 Flow Rate FiO2 01/02/17 02:00 67 14 100/68 100 01/02/17 00:00 97.9 01/01/17 22:47 30 01/01/17 19:00 Mechanical Ventilator Intake and Output 01/01/17 01/01/17 01/02/17 15:00 23:00 07:00 Intake Total 699.68 ml 621.92 ml 68 ml Output Total 400 ml 1210 ml 175 ml Balance 299.68 ml -588.08 ml -107 ml Exam Free Text/Dictation GENERAL: Ventilated. Noncommunicative. BMI of 30. HEENT: Pupils are sluggish. No scleral icterus. Mucous membranes are moist. NECK: Trach in place. Minimal crepitus. JVD not visible. PULMONARY: Minimally coarse. Normal effort. No wheezing. CARDIAC: S1, S2 present. ABDOMEN: Soft and minimally tender to deep palpation with grimacing. PEG in place. VASCULAR: Capillary refill is 2 seconds. NEUROLOGIC: Opens eyes and tracks. PSYCHIATRIC: Noncommunicative. SKIN: No rashes, no jaundice. Diffuse edema. LYMPHATICS: No inguinal or cervical lymph nodes. Results Result Diagram: 01/01/17 0350 01/01/17 0350 PATRICK QUINTERO MD Jan 02, 2017 02:28
[2017-01-02] MEDS: HYDROCODONE/APAP (5/325) TAB PO SCH ×4 (03:01→21:31)
[2017-01-02] MEDS: PROPOFOL 100 ML IV SCH (03:23)
[2017-01-02 04:38] LABS: ADD SCAN DIFF NO
[2017-01-02 04:44] LABS: ABNORMAL IP MESSAGE 1; BASOPHILS % 0.3 % (0.0-2.0); EOSINOPHILS # 0.2 10^3/ul (0.0-0.5); EOSINOPHILS % 1.9 % (0.0-7.0); HEMATOCRIT 32.7 % (37.0-47.0); HEMOGLOBIN 10.5 g/dl (12.0-16.0); LYMPHOCYTES # 1.6 10^3/ul (0.8-2.9); LYMPHOCYTES % 15.3 % (15.0-51.0); MEAN CORPUSCULAR HEMOGLOBIN 30.3 pg (29.0-33.0); MEAN CORPUSCULAR HGB CONC 32.1 g/dl (32.0-37.0); MEAN CORPUSCULAR VOLUME 94.5 fl (82.0-101.0); MEAN PLATELET VOLUME 11.4 fl (7.4-10.4); MONOCYTE # 1.2 10^3/ul (0.3-0.9); MONOCYTES % 10.9 % (0.0-11.0); NEUTROPHIL # 7.1 10^3/ul (1.6-7.5); NEUTROPHILS % 66.3 % (39.0-77.0); PLATELET COUNT 237 10^3/UL (140-415); RED BLOOD COUNT 3.46 10^6/ul (4.20-5.40); RED CELL DISTRIBUTION WIDTH 16.7 % (11.5-14.5); WHITE BLOOD COUNT 10.6 10^3/ul (4.8-10.8)
[2017-01-02 04:56] LABS: POTASSIUM 4.4 mmol/L (3.5-5.1)
[2017-01-02 04:58] LABS: INR 1.06; PROTIME 13.8 Sec (12.2-14.2); PT RATIO 1.1
[2017-01-02 04:59] LABS: CREATININE 0.67 mg/dl (0.44-1.00); PARTIAL THROMBOPLASTIN TIME 23.4 Sec (25.0-35.0); PHOSPHORUS 3.3 mg/dl (2.5-4.9)
[2017-01-02 05:00] LABS: CALCIUM 8.1 mg/dl (8.4-10.2); MAGNESIUM 2.2 mg/dl (1.7-2.5)
[2017-01-02] MEDS: FUROSEMIDE 20 MG INJ IV SCH ×2 (05:55→18:52)
[2017-01-02] MEDS: PANTOPRAZOLE 40 MG INJ IV SCH (05:55)
[2017-01-02] MEDS: METOCLOPRAMIDE 10 MG INJ IV SCH ×3 (05:55→21:29)
[2017-01-02] MEDS: LEVOTHYROXINE 75 MCG TAB GTB SCH (06:10)
[2017-01-02 07:59] LABS: AADO2 Arterial 19.2 mmHg (7.0-24.0); Arterial Base Excess -0.6 mmol/L (-3.0-3); Arterial COHb 0.3 % (0.0-3.0); Arterial Fraction of Oxyhgb 97.7 % (93.0-99.0); Arterial HCO3 24.8 mmol/L (22.0-26.0); Arterial MetHb 0.4 % (0.0-1.5); Arterial Total Hemglobin 12.5 g/dl (12.0-18.0); Blood Gas Low PEEP Setting 0 cmH2O; MODE VENT - AC
--- NOTE | 2017-01-02 08:54 | PN ---
DATE: 01/02/2017 CARDIOLOGY FOLLOWUP SUBJECTIVE: was discussed. Discussed with the . Rhythm strip was reviewed. The patie nt remains in sinus rhythm. PVCs have significantly been reduced. Remains intubated on the vent in the ICU. MEDICATIONS: Reviewed, as per medication reconciliation, personally reviewed. PHYSICAL EXAMINATION: VITAL SIGNS: Temperature 98, heart rate of 61, blood pressure 97/64, respiratory rate 16, saturatin g 100%. HEENT: Normocephalic, atraumatic. Pupils are equal. NECK: With previous trach. Status post intubation, on the vent. CARDIOVASCULAR: Regular rate and rhythm, a systolic murmur. PULMONARY: No wheezes heard anteriorly. Mild rhonchi. GASTROINTESTINAL: Soft, nontender. EXTREMITIES: Positive for trivial edema. NEUROLOGIC: Sedated. LABORATORY: WBC of 7.6, hemoglobin 10.5, platelets of 237. Sodium 139, potassium 4.4, BUN of 25, c reatinine 0.67, glucose of 70. INR is 1.06. ABG shows a pH of 7.37, pCO2 of 43, pO2 of 143. Chest x-ray done last evening shows ET tube and PICC line in satisfactory position, unchanged. Mild pulm onary edema and cardiomegaly. ASSESSMENT AND PLAN: 1. Hypoxemic respiratory failure, status post intubation, on the vent. 2. Status post cardiopulmonary arrest secondary to respiratory failure. 3. Pneumonia. 4. History of ventricular arrhythmia, with frequent PVCs. Currently appears to be much improved. 5. Electrolyte abnormality. Hypokalemia has been corrected now. 6. Anemia. 7. History of paroxysmal atrial fibrillation. Currently remains in sinus rhythm. 8. Dysphagia. Status post percutaneous endoscopic gastrostomy placement. 9. Anasarca. 10. Critical care myopathy. RECOMMENDATIONS: Will continue with the current cardiac care and vent support. The patient is awai ting tracheostomy placement today. Electrolytes, including potassium, will be replaced as needed. Will be monitored closely. Diuresis as tolerated will be continued as well. Dictated By: FRANCISCO BLACKWOOD MD AV/BALDO Conf#: [id number] DID#: [id number] CC: PATRICK QUINTERO MD; NINA MACIEL DO;*EndCC*
[2017-01-02] MEDS: CITALOPRAM 20 MG TAB GTB SCH (09:00)
[2017-01-02] MEDS: AMLODIPINE 10 MG TAB GTB SCH ×2 (09:00→15:38)
[2017-01-02] MEDS: METOPROLOL 100 MG TAB GTB SCH ×2 (09:00→21:30)
[2017-01-02] MEDS: predniSONE 20 MG TAB GTB SCH (09:00)
[2017-01-02] MEDS: FLUTICASONE 0.05% 16 GM NAS SPRAY NASAL SCH ×2 (09:00→21:30)
--- NOTE | 2017-01-02 09:44 | PN ---
DATE: 01/02/2017 SUBJECTIVE: The patient remains on full ventilatory support. The patient is pending possible trach eostomy placement today. No other events noted. OBJECTIVE: VITAL SIGNS: Temperature is 97/64, respirations 14, pulse 62, temperature 98.0. I's AND O'S: The patient has 1.5 liters in and 2 liters out. HEENT: Head is normocephalic. NECK: Supple. HEART: Regular rate. LUNGS: Showed diminished breath sounds at the base. ABDOMEN: Soft, nontender to palpation. Positive PEG. EXTREMITIES: Negative for clubbing or cyanosis. Positive edema. DERMATOLOGIC: No rashes. MUSCULOSKELETAL: Have no joint effusion. NEUROLOGIC: No change in exam. MEDICATIONS: The patient's medications have been reviewed. LABORATORY DATA: Shows sodium 139, potassium 4.4, chloride 105, bicarbonate 29, BUN 25, creatinine 0.67. White count 10.6, hemoglobin 10.5, hematocrit 32.7, platelet count is 237. Chest x-ray on 01/01/2017 shows unchanged pulmonary edema. ASSESSMENT AND PLAN: 1. Ventilator-dependent respiratory failure. The patient's vent settings and ABG were reviewed. T he patient is currently stable. Follow up with pulmonary. The patient is pending possible trach pl acement today. 2. Pneumoperitoneum, pneumothorax. The patient is currently stable, evaluated by general surgery a nd CT surgery. Will continue conservative management and monitor. 3. Acute tracheal bleed. Etiology is unclear. The patient is pending placement of a trach today b juan Carpio. Will follow up recommendations and monitor. 4. Sepsis secondary to aspiration pneumonia and urinary tract infection. Patient is completing an antibiotic course. Continue to monitor off antibiotics. 5. Anemia. Continue to monitor H and H levels. 6. Leukocytosis secondary to steroids. Improved. 7. History of adrenal insufficiency. The patient is on prednisone. Will continue. 8. History of tongue cancer, status post resection. The patient is being monitored by ENT, who geoff l continue to monitor. 9. Paroxysmal atrial fibrillation. Currently in sinus rhythm. Continue medical management. 10. Hypothyroidism. Continue Synthroid. 11. Hypertension. Continue current blood pressure regimen. 12. Dysphagia. Status post PEG. Continue tube feedings. 13. Acute diastolic heart failure. The patient is decompensated. Will increase Lasix to 40 mg IV b.i.d. and monitor electrolytes closely. 14. Hyperkalemia. Improved. 15. History of critical care myopathy. 16. Gastrointestinal and deep venous thrombosis prophylaxis. Continue proton pump inhibitor and se quential leg squeezers. 17. Status post cardiopulmonary arrest secondary to respiratory failure. Dictated By: NINA PEREIRA/BALDO Conf#: [id number] DID#: [id number]
--- NOTE | 2017-01-02 09:46 | CONS ---
Date/Time of Note Date/Time of Note DATE: 01/02/17 TIME: 09:43 Consult Date/Type/Reason Admit Date/Time Dec 26, 2016 at 15:25 Initial Consult Date 12/29/16 Type of Consultation: pulmonary intensive care Ordering Provider: HILARY RUBIO MD Subjective Patient remains intubated on mechanical ventilation pending tracheostomy today Currently hemodynamically stable No significant events overnight Objective Vital Signs Date Time Temp Pulse Resp B/P Pulse Ox O2 Delivery O2 Flow Rate FiO2 01/02/17 09:17 61 14 100 30 01/02/17 06:00 97/64 01/02/17 04:00 98.0 01/01/17 19:00 Mechanical Ventilator Intake and Output 01/01/17 01/01/17 01/02/17 15:00 23:00 07:00 Intake Total 699.68 ml 621.92 ml 176 ml Output Total 400 ml 1210 ml 480 ml Balance 299.68 ml -588.08 ml -304 ml Exam PHYSICAL EXAMINATION GENERAL: Elderly lady intubated on mechanical ventilation appears comfortable at rest VITAL SIGNS: see below. HEENT: Pupils equal, round, and reactive to light. CARDIAC: S1, S2, 2 systolic ejection murmur CHEST: Diminished air entry bilaterally. ABDOMEN: Mildly distended. Bowel sounds present no guarding or rebound. EXTREMITIES: No cyanosis, clubbing edema +1 NEUROLOGIC: No focal deficits. Results/Medications Result Diagram: 01/02/17 0340 01/02/17 0340 Results 24 hrs Laboratory Tests Test 01/02/17 03:40 01/02/17 07:00 White Blood Count 10.6 Red Blood Count 3.46 L Hemoglobin 10.5 L Hematocrit 32.7 L Mean Corpuscular Volume 94.5 Mean Corpuscular Hemoglobin 30.3 Mean Corpuscular Hemoglobin Concent 32.1 Red Cell Distribution Width 16.7 H Platelet Count 237 Mean Platelet Volume 11.4 H Neutrophils % 66.3 Lymphocytes % 15.3 Monocytes % 10.9 Eosinophils % 1.9 Basophils % 0.3 Nucleated Red Blood Cells % 0.0 Neutrophils # 7.1 Lymphocytes # 1.6 Monocytes # 1.2 H Eosinophils # 0.2 Basophils # 0.0 Nucleated Red Blood Cells # 0.0 Prothrombin Time 13.8 Prothrombin Time Ratio 1.1 INR International Normalized Ratio 1.06 Activated Partial Thromboplast Time 23.4 L Sodium Level 139 Potassium Level 4.4 Chloride Level 105 Carbon Dioxide Level 29 Anion Gap 9 Blood Urea Nitrogen 25 H Creatinine 0.67 Glucose Level 70 # Calcium Level 8.1 L Phosphorus Level 3.3 Magnesium Level 2.2 Blood Gas Specimen Source Blood arterial Arterial Blood Date Drawn 01/02/2017 7:31:06 AM Arterial Blood pH (Temp corrected) 7.374 Arterial Blood pCO2 (Temp correct) 43.4 Arterial Blood pO2 (Temp corrected) 143.7 H Arterial Blood HCO3 24.8 Arterial Blood Base Excess -0.6 Arterial Blood Oxygen Saturation 98.4 H Jonn Test N/A Arterial Blood Gas Puncture Site Right Brachial Arterial Blood Carboxyhemoglobin 0.3 Arterial Blood Methemoglobin 0.4 Blood Gas A-a O2 Differential 19.2 Oxyhemoglobin Percent 97.7 Total Hemoglobin 12.5 Blood Gas Temperature 37.0 Blood Gas Respiration Rate 14.0 Blood Gas Actual Respiration Rate 14 Blood Gas Modality VENT - AC FiO2 30.0 Blood Gas Tidal Volume 400.0 Blood Gas Low PEEP Setting 0 Blood Gas Notified Whom JLD Blood Gas Notified Time 01/02/2017 7:59:49 AM Medications Current Medications Ondansetron HCl (Zofran Inj) 4 mg Q6H PRN IV NAUSEA AND/OR VOMITING; Start at 16:00 Pantoprazole 40 mg 40 mg DAILY@06 IV Last administered on 01/02/17 05:55; Admin Dose 40 MG; Start 12/27/16 at 06:00 Propofol 100 ml @ 2.25 mls/hr Q12H IV Last administered on 01/02/17 03:23; Admin Dose 18 MLS/HR; Start 12/26/16 at 17:00 Norepinephrine/ Dextrose (Levophed/D5W) 500 ml @ 1.87 mls/hr TITRATE IV ; Start 12/26/16 at 20:30 Metoclopramide HCl (Reglan) 10 mg Q8 IV Last administered on 01/02/17 05:55; Admin Dose 10 MG; Start 12/27/16 at 06:00 Acetaminophen (Tylenol Liquid) 650 mg Q4H PRN GTB PAIN AND OR ELEVATED TEMP; Start 12/27/16 at 09:00 Acetazolamide (Diamox) 500 mg DAILY IV Last administered on 12/31/16 09:29; Admin Dose 500 MG; Start 12/27/16 at 11:00; Status Future Hold Atorvastatin Calcium (Lipitor) 40 mg HS GTB Last administered on 01/01/17 21: 00; Admin Dose 40 MG; Start 12/27/16 at 21:00 Citalopram Hydrobromide (Celexa) 40 mg DAILY GTB Last administered on 08:44; Admin Dose 40 MG; Start 12/27/16 at 09:00 Fluticasone Propionate (Flonase 0.05% Nasal) 2 spray BID NASAL Last administered on 01/01/17 21:21; Admin Dose 2 SPRAY; Start 12/27/16 at 11:00 Levothyroxine Sodium (Synthroid) 75 mcg DAILY@06 GTB Last administered on 06:10; Admin Dose 75 MCG; Start 12/28/16 at 06:00 Prednisone (Prednisone) 20 mg DAILY GTB Last administered on 01/01/17 08:44; Admin Dose 20 MG; Start 12/27/16 at 09:00 Zolpidem Tartrate (Ambien) 5 mg HS PRN PO INSOMNIA; Start 12/27/16 at 09:00 IV Flush (NS 10 ml) 10 ml PRN PRN IV IV PROTOCOL; Start 12/27/16 at 16:00 Nitroglycerin (Nitroglycerin 2% Oint) 0.5 inch Q6 TD Last administered on 00:36; Admin Dose 0.5 INCH; Start 12/29/16 at 18:00 Metoprolol Tartrate (Lopressor) 100 mg BID GTB Last administered on 01/01/17 21:00; Admin Dose 100 MG; Start 12/30/16 at 09:00 Amlodipine Besylate (Norvasc) 10 mg DAILY GTB Last administered on 01/01/17 08 :44; Admin Dose 10 MG; Start 12/30/16 at 09:00 Acetaminophen/ Hydrocodone Bitart ([place] (5/325)) 1 tab Q6H PO Last administered on 01/02/17 03:01; Admin Dose 1 TAB; Start 01/01/17 at 09:00 Assessment/Plan Chief Complaint/Hosp Course Assessment 1. History of chronic respiratory failure with tracheostomy 2. Tracheostomy site bleeding 3. Iatrogenic pneumothorax now appears to have resolved 4. Resolving encephalopathy 5. Dysphagia with G-tube Plan 1. Replacement of tracheostomy today 2. Continue mechanical ventilation 3. Continue to feeding following tracheostomy placement 4. Continue wound care 5. DVT and GI prophylaxis Patient remains full code Continue ICU monitoring today Anticipate transfer back to [place] once tracheostomy placed Problems: DARWIN CRAWFORD MD, [facility] Jan 02, 2017 09:46
--- NOTE | 2017-01-02 10:37 | RADRPT ---
Vent Rate: 61 bpm RR Interval: 0 msec RI Interval: 142 msec QRS Duration: 76 msec QT Interval: 404 msec QTC Interval: 406 msec P-R-T [place]: 59 - 33 - 51 degrees Normal sinus rhythm Normal ECG Electronically Signed By: Leonel Cano [id number]
[2017-01-02] MEDS ORDERED: ROCURONIUM 50 MG INJ ONE (11:45)
[2017-01-02] MEDS ORDERED: PROPOFOL 20 ML ONE (11:45)
[2017-01-02] MEDS ORDERED: FENTAnyl 50 MCG/ML VIAL ONE (11:46)
[2017-01-02] MEDS ORDERED: LIDOCAINE 1%/EPI 30 ML INJ ONE (12:01)
--- NOTE | 2017-01-02 12:54 | CONS ---
Date/Time of Note Date/Time of Note DATE: 01/02/17 TIME: 12:53 Assessment/Plan Assessment/Plan Chief Complaint/Hosp Course SUBJECTIVE: No events overnight. No fevers. The patient is lying comfortably in bed. INDWELLINGS: Endotracheal tube, PEG, Latif, PICC line. PHYSICAL EXAMINATION: GENERAL: This is a fragile, elderly woman who is lying comfortably in bed. HEENT: Head atraumatic, normocephalic. Sclerae anicteric. Buccal mucosa dry. NECK: Supple. CHEST: Rise symmetrical. Breath sounds diminished. HEART: S1, S2. ABDOMEN: Soft. Bowel tones present. EXTREMITIES: Without cyanosis. ASSESSMENT: 1. Status post sepsis. 2. Status post cardiopulmonary arrest. 3. Acute respiratory failure. 4. Status post urinary tract infection and pneumonia. 5. Vancomycin-resistant Enterococcus stool colonization. 6. History of oral cancer. 7. Pneumoperitoneum, no active issues, surgery on case. PLAN: The patient remains stable off antibiotics. Pending trach. Continue present care. [facility] p[facility] staff Problems: Consultation Date/Type/Reason Admit Date/Time Dec 26, 2016 at 15:25 Initial Consult Date 12/26/16 Type of Consultation: ID Referring Provider: HILARY RUBIO MD Exam/Review of Systems Vital Signs Vitals Vital Signs Date Time Temp Pulse Resp B/P Pulse Ox O2 Delivery O2 Flow Rate FiO2 01/02/17 11:15 14 100 30 01/02/17 11:00 61 106/64 Mechanical Ventilator 01/02/17 04:00 98.0 Intake and Output 01/01/17 01/01/17 01/02/17 15:00 23:00 07:00 Intake Total 699.68 ml 621.92 ml 176 ml Output Total 400 ml 1210 ml 480 ml Balance 299.68 ml -588.08 ml -304 ml Results Result Diagram: 01/02/17 0340 01/02/17 0340 Results 24 hrs Laboratory Tests Test 01/02/17 03:40 01/02/17 07:00 White Blood Count 10.6 Red Blood Count 3.46 L Hemoglobin 10.5 L Hematocrit 32.7 L Mean Corpuscular Volume 94.5 Mean Corpuscular Hemoglobin 30.3 Mean Corpuscular Hemoglobin Concent 32.1 Red Cell Distribution Width 16.7 H Platelet Count 237 Mean Platelet Volume 11.4 H Neutrophils % 66.3 Lymphocytes % 15.3 Monocytes % 10.9 Eosinophils % 1.9 Basophils % 0.3 Nucleated Red Blood Cells % 0.0 Neutrophils # 7.1 Lymphocytes # 1.6 Monocytes # 1.2 H Eosinophils # 0.2 Basophils # 0.0 Nucleated Red Blood Cells # 0.0 Prothrombin Time 13.8 Prothrombin Time Ratio 1.1 INR International Normalized Ratio 1.06 Activated Partial Thromboplast Time 23.4 L Sodium Level 139 Potassium Level 4.4 Chloride Level 105 Carbon Dioxide Level 29 Anion Gap 9 Blood Urea Nitrogen 25 H Creatinine 0.67 Glucose Level 70 # Calcium Level 8.1 L Phosphorus Level 3.3 Magnesium Level 2.2 Blood Gas Specimen Source Blood arterial Arterial Blood Date Drawn 01/02/2017 7:31:06 AM Arterial Blood pH (Temp corrected) 7.374 Arterial Blood pCO2 (Temp correct) 43.4 Arterial Blood pO2 (Temp corrected) 143.7 H Arterial Blood HCO3 24.8 Arterial Blood Base Excess -0.6 Arterial Blood Oxygen Saturation 98.4 H Jonn Test N/A Arterial Blood Gas Puncture Site Right Brachial Arterial Blood Carboxyhemoglobin 0.3 Arterial Blood Methemoglobin 0.4 Blood Gas A-a O2 Differential 19.2 Oxyhemoglobin Percent 97.7 Total Hemoglobin 12.5 Blood Gas Temperature 37.0 Blood Gas Respiration Rate 14.0 Blood Gas Actual Respiration Rate 14 Blood Gas Modality VENT - AC FiO2 30.0 Blood Gas Tidal Volume 400.0 Blood Gas Low PEEP Setting 0 Blood Gas Notified Whom JLD Blood Gas Notified Time 01/02/2017 7:59:49 AM Medications Medications Current Medications Ondansetron HCl (Zofran Inj) 4 mg Q6H PRN IV NAUSEA AND/OR VOMITING; Start at 16:00 Pantoprazole 40 mg 40 mg DAILY@06 IV Last administered on 01/02/17 05:55; Admin Dose 40 MG; Start 12/27/16 at 06:00 Propofol 100 ml @ 2.25 mls/hr Q12H IV Last administered on 01/02/17 03:23; Admin Dose 18 MLS/HR; Start 12/26/16 at 17:00 Norepinephrine/ Dextrose (Levophed/D5W) 500 ml @ 1.87 mls/hr TITRATE IV ; Start 12/26/16 at 20:30 Metoclopramide HCl (Reglan) 10 mg Q8 IV Last administered on 01/02/17 05:55; Admin Dose 10 MG; Start 12/27/16 at 06:00 Acetaminophen (Tylenol Liquid) 650 mg Q4H PRN GTB PAIN AND OR ELEVATED TEMP; Start 12/27/16 at 09:00 Acetazolamide (Diamox) 500 mg DAILY IV Last administered on 12/31/16 09:29; Admin Dose 500 MG; Start 12/27/16 at 11:00; Status Future Hold Atorvastatin Calcium (Lipitor) 40 mg HS GTB Last administered on 01/01/17 21: 00; Admin Dose 40 MG; Start 12/27/16 at 21:00 Citalopram Hydrobromide (Celexa) 40 mg DAILY GTB Last administered on 08:44; Admin Dose 40 MG; Start 12/27/16 at 09:00 Fluticasone Propionate (Flonase 0.05% Nasal) 2 spray BID NASAL Last administered on 01/01/17 21:21; Admin Dose 2 SPRAY; Start 12/27/16 at 11:00 Levothyroxine Sodium (Synthroid) 75 mcg DAILY@06 GTB Last administered on 06:10; Admin Dose 75 MCG; Start 12/28/16 at 06:00 Prednisone (Prednisone) 20 mg DAILY GTB Last administered on 01/01/17 08:44; Admin Dose 20 MG; Start 12/27/16 at 09:00 Zolpidem Tartrate (Ambien) 5 mg HS PRN PO INSOMNIA; Start 12/27/16 at 09:00 IV Flush (NS 10 ml) 10 ml PRN PRN IV IV PROTOCOL; Start 12/27/16 at 16:00 Nitroglycerin (Nitroglycerin 2% Oint) 0.5 inch Q6 TD Last administered on 00:36; Admin Dose 0.5 INCH; Start 12/29/16 at 18:00 Metoprolol Tartrate (Lopressor) 100 mg BID GTB Last administered on 01/01/17 21:00; Admin Dose 100 MG; Start 12/30/16 at 09:00 Amlodipine Besylate (Norvasc) 10 mg DAILY GTB Last administered on 01/01/17 08 :44; Admin Dose 10 MG; Start 12/30/16 at 09:00 Acetaminophen/ Hydrocodone Bitart ([place] (5/325)) 1 tab Q6H PO Last administered on 01/02/17 03:01; Admin Dose 1 TAB; Start 01/01/17 at 09:00 LORETO MCKEON NP Jan 02, 2017 12:54
--- NOTE | 2017-01-02 13:05 | OPR ---
DATE OF OPERATION: PREOPERATIVE DIAGNOSIS: Respiratory failure. POSTOPERATIVE DIAGNOSIS: Respiratory failure. PROCEDURE PERFORMED: Revision tracheostomy with [place] flap. SURGEON: Greg Carpio MD ANESTHESIA: General. COMPLICATIONS: None. ESTIMATED BLOOD LOSS: Minimal. DESCRIPTION OF PROCEDURE: After informed consent was obtained, the patient was brought to the opera ting room and placed in supine position. The area to be worked upon was injected with approximately 10 mL of 1% lidocaine with 1:100,000 epinephrine. After sufficient period of time had elapsed, the patient was prepped and draped in a sterile fashion. At this point, the elliptical incision was ma de encompassing the previous incision. This incision was taken down to the level of the trachea. I t appeared that only a horizontal incision had been made through the second and third tracheal rings . The [place] flap was then created suturing it to the skin using multiple 2-0 chromic sutures. At t his point, there was minimal oozing. The tracheal stoma was quite adequate. As the anesthesiologis t was able to bring back the tube posteriorly, I could see just inferior to the level of the stoma, the area of posterior tracheomalacia. I was able to then place a 6 cuffed [place] tracheostomy tube without difficulty, being sure to keep the tip as anterior as possible. Good CO2 was obtained. It was fixated in position using ties and sutures. At this point, the patient was then awakened and tr ansferred to recovery room. Dictated By: GREG ENGLE/BALDO Conf#: [id number] DID#: [id number]
--- NOTE | 2017-01-02 19:50 | PN ---
Date/Time of Note Date/Time of Note DATE: 01/02/17 TIME: 19:50 Assessment/Plan Lines/Catheters IV Catheter Type (from Nrsg): PICC Line Latif in Place (from Nrsg): Yes Assessment/Plan Chief Complaint/Hosp Course Sp PTX PTX resolved will monitor CXR continue Vent Support Problems: Subjective 24 Hr Interval Summary Constitutional: improved Pain Control: mild Exam/Review of Systems Vital Signs Vitals Vital Signs Date Time Temp Pulse Resp B/P Pulse Ox O2 Delivery O2 Flow Rate FiO2 01/02/17 19:00 74 17 113/69 100 Mechanical Ventilator 01/02/17 17:00 30 01/02/17 16:00 98.1 Intake and Output 01/01/17 01/01/17 01/02/17 15:00 23:00 07:00 Intake Total 699.68 ml 621.92 ml 194 ml Output Total 400 ml 1210 ml 645 ml Balance 299.68 ml -588.08 ml -451 ml Exam ENMT: mucosa pink and moist, nl external ears & nose, nl lips & teeth, nl nasal mucosa & septum Neck: non-tender, supple Respiratory: clear to auscultation, normal air movement Cardiovascular: nl pulses, regular rate and rhythm Results Result Diagram: 01/02/1733901/02/17339 FANNY BLACK MD Jan 02, 2017 19:50
[2017-01-02] MEDS: ATORVASTATIN 40 MG TAB GTB SCH (21:30)
--- NOTE | 2017-01-02 22:51 | CONS ---
Date/Time of Note Date/Time of Note DATE: 01/02/17 TIME: 22:49 Assessment/Plan Assessment/Plan Chief Complaint/Hosp Course ASSESSMENT AND PLAN: This is a 66-year-old female who presents with: Anemia n -cytic with increased RDW, WITH SIGNIFICANT DROP H/H DURING HOSPITALIZATION post 2 u PRBC + COMPONENT ACD HX ANEMIA of chronic disease. Continue to monitor hemoglobin and hematocrit levels. OBSERVE FOR BLEEDING AND HEMOLYSIS TRANSFUSE TO KEEP HB ABOVE 8 History of tongue cancer status post surgical resection. The possibility of recurrence at the outside hospital- NOT SEEN ON CURRENT EXAM POST revision tracheostomy ENT F-UP Leukocytosis. Etiology is likely multifactorial secondary to steroids, sepsis. Status post code arrest. Etiology may be secondary to aspiration, hypoxemia. The patient had spontaneous return of circulation. Ventilator dependent respiratory failure. The patient is status post intubation. Currently stable. ABG has been reviewed. Vent settings have been reviewed. We will continue to monitor. Follow up with Pulmonary. Acute tracheal bleed. Underlying etiology is unclear. The patient's tracheostomy was removed. ENT consult for further evaluation with Dr. Carpio and monitor closely. Sepsis secondary to likely aspiration pneumonia. We will continue current broad spectrum antibiotics. Follow up cultures. Follow up with Infectious Disease. History of adrenal insufficiency. post stress dose of hydrocortisone. Paroxysmal atrial fibrillation, currently in sinus rhythm. Continue to monitor. Continue medical management. Hypothyroidism. ON Synthroid. Hypertension. Blood pressure is currently normotensive. Continue to monitor. Dysphagia, status post PEG. History of volume overload, diastolic heart failure. History of critical care myopathy. Continue to monitor. Gastrointestinal and deep venous thrombosis prophylaxis. Continue proton pump inhibitor and sequential leg squeezers. Problems: Consultation Date/Type/Reason Admit Date/Time Dec 26, 2016 at 15:25 Initial Consult Date 12/29/16 [facility] of Consultation: [facility] Referring Provider: HILARY RUBIO MD 24 HR Interval Summary Free Text/Dictation POST Revision tracheostomy with [place] flap. NO BLEEDING PER ENT NOTE- NO NEOPLASIA Exam/Review of Systems Vital Signs Vitals Vital Signs Date Time Temp Pulse Resp B/P Pulse Ox O2 Delivery O2 Flow Rate FiO2 01/02/17 22:00 73 16 111/65 100 01/02/17 20:00 30 01/02/17 20:00 97.9 Mechanical Ventilator Intake and Output 01/01/17 01/01/17 01/02/17 15:00 23:00 07:00 Intake Total 699.68 ml 621.92 ml 194 ml Output Total 400 ml 1210 ml 645 ml Balance 299.68 ml -588.08 ml -451 ml Exam GENERAL: Elderly lady intubated on mechanical ventilation appears comfortable at rest VITAL SIGNS: see below. HEENT: Pupils equal, round, and reactive to light. CARDIAC: S1, S2, 2 systolic ejection murmur CHEST: Diminished air entry bilaterally. ABDOMEN: Mildly distended. Bowel sounds present no guarding or rebound. EXTREMITIES: No cyanosis, clubbing edema +1 NEUROLOGIC: No focal deficits. Results Result Diagram: 01/02/17 0340 01/02/17 0340 Results 24 hrs Laboratory Tests Test 01/02/17 03:40 01/02/17 07:00 White Blood Count 10.6 Red Blood Count 3.46 L Hemoglobin 10.5 L Hematocrit 32.7 L Mean Corpuscular Volume 94.5 Mean Corpuscular Hemoglobin 30.3 Mean Corpuscular Hemoglobin Concent 32.1 Red Cell Distribution Width 16.7 H Platelet Count 237 Mean Platelet Volume 11.4 H Neutrophils % 66.3 Lymphocytes % 15.3 Monocytes % 10.9 Eosinophils % 1.9 Basophils % 0.3 Nucleated Red Blood Cells % 0.0 Neutrophils # 7.1 Lymphocytes # 1.6 Monocytes # 1.2 H Eosinophils # 0.2 Basophils # 0.0 Nucleated Red Blood Cells # 0.0 Prothrombin Time 13.8 Prothrombin Time Ratio 1.1 INR International Normalized Ratio 1.06 Activated Partial Thromboplast Time 23.4 L Sodium Level 139 Potassium Level 4.4 Chloride Level 105 Carbon Dioxide Level 29 Anion Gap 9 Blood Urea Nitrogen 25 H Creatinine 0.67 Glucose Level 70 # Calcium Level 8.1 L Phosphorus Level 3.3 Magnesium Level 2.2 Blood Gas Specimen Source Blood arterial Arterial Blood Date Drawn 01/02/2017 7:31:06 AM Arterial Blood pH (Temp corrected) 7.374 Arterial Blood pCO2 (Temp correct) 43.4 Arterial Blood pO2 (Temp corrected) 143.7 H Arterial Blood HCO3 24.8 Arterial Blood Base Excess -0.6 Arterial Blood Oxygen Saturation 98.4 H Jonn Test N/A Arterial Blood Gas Puncture Site Right Brachial Arterial Blood Carboxyhemoglobin 0.3 Arterial Blood Methemoglobin 0.4 Blood Gas A-a O2 Differential 19.2 Oxyhemoglobin Percent 97.7 Total Hemoglobin 12.5 Blood Gas Temperature 37.0 Blood Gas Respiration Rate 14.0 Blood Gas Actual Respiration Rate 14 Blood Gas Modality VENT - AC FiO2 30.0 Blood Gas Tidal Volume 400.0 Blood Gas Low PEEP Setting 0 Blood Gas Notified Whom JLD Blood Gas Notified Time 01/02/2017 7:59:49 AM Medications Medications Current Medications Ondansetron HCl (Zofran Inj) 4 mg Q6H PRN IV NAUSEA AND/OR VOMITING; Start at 16:00 Pantoprazole 40 mg 40 mg DAILY@06 IV Last administered on 01/02/17 05:55; Admin Dose 40 MG; Start 12/27/16 at 06:00 Propofol 100 ml @ 2.25 mls/hr Q12H IV Last administered on 01/02/17 03:23; Admin Dose 18 MLS/HR; Start 12/26/16 at 17:00 Norepinephrine/ Dextrose (Levophed/D5W) 500 ml @ 1.87 mls/hr TITRATE IV ; Start 12/26/16 at 20:30 Metoclopramide HCl (Reglan) 10 mg Q8 IV Last administered on 01/02/17 21:29; Admin Dose 10 MG; Start 12/27/16 at 06:00 Acetaminophen (Tylenol Liquid) 650 mg Q4H PRN GTB PAIN AND OR ELEVATED TEMP; Start 12/27/16 at 09:00 Acetazolamide (Diamox) 500 mg DAILY IV Last administered on 12/31/16 09:29; Admin Dose 500 MG; Start 12/27/16 at 11:00; Status Future Hold Atorvastatin Calcium (Lipitor) 40 mg HS GTB Last administered on 01/02/17 21: 30; Admin Dose 40 MG; Start 12/27/16 at 21:00 Citalopram Hydrobromide (Celexa) 40 mg DAILY GTB Last administered on 08:44; Admin Dose 40 MG; Start 12/27/16 at 09:00 Fluticasone Propionate (Flonase 0.05% Nasal) 2 spray BID NASAL Last administered on 01/02/17 21:30; Admin Dose 2 SPRAY; Start 12/27/16 at 11:00 Levothyroxine Sodium (Synthroid) 75 mcg DAILY@06 GTB Last administered on 06:10; Admin Dose 75 MCG; Start 12/28/16 at 06:00 Prednisone (Prednisone) 20 mg DAILY GTB Last administered on 01/01/17 08:44; Admin Dose 20 MG; Start 12/27/16 at 09:00 Zolpidem Tartrate (Ambien) 5 mg HS PRN PO INSOMNIA; Start 12/27/16 at 09:00 IV Flush (NS 10 ml) 10 ml PRN PRN IV IV PROTOCOL; Start 12/27/16 at 16:00 Nitroglycerin (Nitroglycerin 2% Oint) 0.5 inch Q6 TD Last administered on 00:36; Admin Dose 0.5 INCH; Start 12/29/16 at 18:00 Metoprolol Tartrate (Lopressor) 100 mg BID GTB Last administered on 01/02/17 21:30; Admin Dose 100 MG; Start 12/30/16 at 09:00 Amlodipine Besylate (Norvasc) 10 mg DAILY GTB Last administered on 01/02/17 15 :38; Admin Dose 10 MG; Start 12/30/16 at 09:00 Acetaminophen/ Hydrocodone Bitart ([place] (5/325)) 1 tab Q6H PO Last administered on 01/02/17 21:31; Admin Dose 1 TAB; Start 01/01/17 at 09:00 FREDERICK DAIGLE MD Jan 02, 2017 22:51
[2017-01-03] VITALS (29 sets, daily range): BP systolic 84–135; BP diastolic 48–83; PULSE 69–88; RESP 13–22
[2017-01-03] MEDS: LEVALBUTEROL (HFA) 15 GM INHALER INH SCH ×3 (01:47→13:38)
[2017-01-03] MEDS: IPRATROPIUM (HFA) 12.9 GM INHALER INH SCH ×3 (01:47→13:38)
[2017-01-03] MEDS: HYDROCODONE/APAP (5/325) TAB PO SCH ×4 (04:00→22:12)
[2017-01-03 04:33] LABS: ADD SCAN DIFF NO
[2017-01-03 04:43] LABS: ABNORMAL IP MESSAGE 1; BASOPHILS % 0.2 % (0.0-2.0); EOSINOPHILS # 0.4 10^3/ul (0.0-0.5); EOSINOPHILS % 2.9 % (0.0-7.0); HEMATOCRIT 34.2 % (37.0-47.0); HEMOGLOBIN 11.1 g/dl (12.0-16.0); LYMPHOCYTES # 1.6 10^3/ul (0.8-2.9); MEAN CORPUSCULAR HEMOGLOBIN 30.6 pg (29.0-33.0); MEAN CORPUSCULAR HGB CONC 32.5 g/dl (32.0-37.0); MEAN CORPUSCULAR VOLUME 94.2 fl (82.0-101.0); MEAN PLATELET VOLUME 10.8 fl (7.4-10.4); MONOCYTE # 1.5 10^3/ul (0.3-0.9); NEUTROPHIL # 9.5 10^3/ul (1.6-7.5); NEUTROPHILS % 69.7 % (39.0-77.0); PLATELET COUNT 241 10^3/UL (140-415); RED BLOOD COUNT 3.63 10^6/ul (4.20-5.40); RED CELL DISTRIBUTION WIDTH 16.3 % (11.5-14.5); WHITE BLOOD COUNT 13.6 10^3/ul (4.8-10.8)
[2017-01-03 04:48] LABS: CREATININE 0.76 mg/dl (0.44-1.00)
[2017-01-03 04:49] LABS: PHOSPHORUS 4.3 mg/dl (2.5-4.9)
[2017-01-03 04:50] LABS: CALCIUM 8.4 mg/dl (8.4-10.2)
[2017-01-03 04:57] LABS: MONOCYTES % 11.3 % (0.0-11.0)
[2017-01-03] MEDS: PROPOFOL 100 ML IV SCH ×2 (05:00→17:00)
[2017-01-03] MEDS: NITROGLYCERIN 2% 1 GM OINT PKT TD SCH ×2 (06:00)
[2017-01-03] MEDS: FUROSEMIDE 20 MG INJ IV SCH ×2 (06:38→18:29)
[2017-01-03] MEDS: LEVOTHYROXINE 75 MCG TAB GTB SCH (06:38)
[2017-01-03] MEDS: PANTOPRAZOLE 40 MG INJ IV SCH (06:38)
[2017-01-03] MEDS: METOCLOPRAMIDE 10 MG INJ IV SCH ×3 (06:48→22:12)
--- NOTE | 2017-01-03 08:32 | PN ---
DATE: 01/03/2017 SUBJECTIVE: The patient underwent trach placement, without any complications. The patient has been clinically stable. Urinary output has been excellent, on diuretic therapy. No other acute events noted. No hemoptysis, hematemesis or hematochezia. OBJECTIVE: VITAL SIGNS: Blood pressure is 92/64, respirations 15, pulse 76, temperature 98.2. I's AND O'S: The patient has 690 in, with 4 liters out. HEENT: Head is normocephalic. NECK: Supple. HEART: Regular rate. LUNGS: Showed diminished breath sounds at the base. ABDOMEN: Soft, nontender to palpation. No rebound or guarding. EXTREMITIES: Negative for clubbing or cyanosis. Positive edema. DERMATOLOGIC: No rashes. MUSCULOSKELETAL: Have no joint effusion. NEUROLOGIC: No change in exam. MEDICATIONS: The patient's medications have been reviewed. LABORATORY DATA: Shows a white count of 13.6, hemoglobin 11.1, hematocrit 34.2, platelet count is 2 41. Sodium 142, potassium 4.0, chloride 104, bicarbonate 32, BUN 26, creatinine 0.76. ASSESSMENT AND PLAN: 1. Ventilator-dependent respiratory failure, status post trach. The patient is currently stable. Continue the current vent settings. 2. Status post pneumothorax. Will continue to monitor. Follow up with CT surgery. 3. Sepsis secondary to aspiration pneumonia and urinary tract infection. The patient has completed an antibiotic course. 4. Anemia. Continue to monitor H and H levels. 5. Leukocytosis likely secondary to steroids. Improving. 6. History of adrenal insufficiency. Continue prednisone. 7. History of tongue cancer. Status post resection. The patient was seen by ENT. Will follow up recommendations. No visual evidence of recurrence, per ENT. 8. Paroxysmal atrial fibrillation. Currently in sinus rhythm. Continue medical management. 9. Hypothyroidism. Continue Synthroid. 10. Hypertension. Blood pressure is currently controlled. Continue diuretic therapy. Will adjust blood pressure medications. 11. Dysphagia. Status post PEG. Continue tube feeding. 12. Acute diastolic heart failure. The patient is clinically improving, with over 4 liters of urin lexus output. Will deescalate Lasix to 20 mg IV b.i.d. 13. Electrolyte abnormalities. Improved. 14. History of critical care myopathy. 15. Status post cardiac arrest secondary to respiratory failure. 16. Status post tracheal bleed. 17. Gastrointestinal and deep venous thrombosis prophylaxis. Continue proton pump inhibitor and se quential leg squeezers. Dictated By: NINA PEREIRA/BALDO Conf#: [id number] DID#: [id number]
[2017-01-03] MEDS: predniSONE 20 MG TAB GTB SCH (08:42)
[2017-01-03] MEDS: CITALOPRAM 20 MG TAB GTB SCH (08:42)
[2017-01-03] MEDS: FLUTICASONE 0.05% 16 GM NAS SPRAY NASAL SCH ×2 (08:43→21:00)
[2017-01-03] MEDS: METOPROLOL 100 MG TAB GTB SCH ×2 (08:43→22:11)
--- NOTE | 2017-01-03 08:48 | RADRPT ---
PROCEDURE: XR Chest. CLINICAL INDICATION: Dyspnea TECHNIQUE: Single frontal chest x-ray. COMPARISON: 01/01/2017 FINDINGS: There is a new tracheostomy tube in place. Left PICC line remains in satisfactory position. There is cardiomegaly. There is aortic atherosclerosis. Diffuse prominence of the interstitial markings ar e again noted. There are no pleural effusions or pneumothoraces. The osseous structures are intact . Surgical clips are seen in the midline lower neck. IMPRESSION: 1. New tracheostomy in place. 2. Cardiomegaly. Aortic atherosclerosis. 3. Diffuse prominence of the interstitial markings suggesting interstitial edema versus pneumonitis , not significantly changed. RPTAT: BB .Mildred Juarez MD, MD Date Time Electronically viewed and signed by .Mildred Juarez MD, on 01/03/2017 08:48 .O/
--- NOTE | 2017-01-03 09:32 | CONS ---
Date/Time of Note Date/Time of Note DATE: 01/03/17 TIME: 09:29 Assessment/Plan Assessment/Plan Additional Assessment/Plan Ventilator settings are AC of 14, tidal volume 400, PEEP of 0, 30% FiO2. Chest x-ray was reviewed from today which is essentially unremarkable no pneumothorax identified. There is mild interstitial prominence more pronounced in the right lung which is a chronic finding. Next Assessment recommendations; 1. Patient admitted to [facility] for continued treatment of respiratory failure, underwent tracheostomy with active bleeding patient underwent a brief resuscitation. 2. History of grossly cancer, status post tracheostomy in the past. 3. She of hypertension and hypothyroidism. 4. Very small left apical pneumothorax which is not identified on chest x-ray from today. With marked reduction in bilateral chest wall with cutaneous emphysema. Wean the patient to T-piece this tolerated. Patient can be transferred back to [facility] for continued treatment. I did have a detailed discussion the patient's at bedside and answered all his questions. Consultation Date/Type/Reason Admit Date/Time Dec 26, 2016 at 15:25 Initial Consult Date 12/26/16 Type of Consultation: Pulmonary/critical care Referring Provider: HILARY RUBIO MD 24 HR Interval Summary Free Text/Dictation Patient condition is stable. She is completely awake alert. Underwent revision tracheostomy yesterday. Has remained hemodynamically stable. General exam; elderly lady, on ventilator via tracheostomy awake and alert. Exam/Review of Systems Vital Signs Vitals Vital Signs Date Time Temp Pulse Resp B/P Pulse Ox O2 Delivery O2 Flow Rate FiO2 01/03/17 08:00 73 01/03/17 07:22 19 100 30 01/03/17 07:00 92/64 Mechanical Ventilator 01/03/17 04:00 98.2 Intake and Output 01/02/17 01/02/17 01/03/17 15:00 23:00 07:00 Intake Total 272 ml 140 ml 260 ml Output Total 1321 ml 2220 ml 1010 ml Balance -1049 ml -2080 ml -750 ml Exam HEENT exam; supple neck, no JVD. No lymphadenopathy. Midline trachea. There is right-sided neck scar which appears well-healed with soft tissue swelling. Tracheostomy in place with clean insertion site. Pupils are midsize reactive to light bilaterally. Patient has fair dentition. Chest exam is; clear to auscultation. S1-S2 audible, no murmurs. Regular rhythm. Abdomen examination; soft, G-tube in place. Bowel sounds audible. Nontender. No organomegaly. Extremity exam; no peripheral edema. [employer] examination; no focal deficit. Results Result Diagram: 01/03/17 0415 01/03/17 0415 Results 24 hrs Laboratory Tests Test 01/03/17 04:15 White Blood Count 13.6 #H Red Blood Count 3.63 L Hemoglobin 11.1 L Hematocrit 34.2 L Mean Corpuscular Volume 94.2 Mean Corpuscular Hemoglobin 30.6 Mean Corpuscular Hemoglobin Concent 32.5 Red Cell Distribution Width 16.3 H Platelet Count 241 Mean Platelet Volume 10.8 H Neutrophils % 69.7 Lymphocytes % 12.0 L Monocytes % 11.3 H Eosinophils % 2.9 Basophils % 0.2 Nucleated Red Blood Cells % 0.0 Neutrophils # 9.5 H Lymphocytes # 1.6 Monocytes # 1.5 H Eosinophils # 0.4 Basophils # 0.0 Nucleated Red Blood Cells # 0.0 Sodium Level 142 Potassium Level 4.0 Chloride Level 104 Carbon Dioxide Level 32 H Anion Gap 10 Blood Urea Nitrogen 26 H Creatinine 0.76 Glucose Level 97 Calcium Level 8.4 Phosphorus Level 4.3 Magnesium Level 2.0 Medications Medications Current Medications Ondansetron HCl (Zofran Inj) 4 mg Q6H PRN IV NAUSEA AND/OR VOMITING; Start at 16:00 Pantoprazole 40 mg 40 mg DAILY@06 IV Last administered on 01/03/17 06:38; Admin Dose 40 MG; Start 12/27/16 at 06:00 Propofol 100 ml @ 2.25 mls/hr Q12H IV Last administered on 01/02/17 03:23; Admin Dose 18 MLS/HR; Start 12/26/16 at 17:00 Norepinephrine/ Dextrose (Levophed/D5W) 500 ml @ 1.87 mls/hr TITRATE IV ; Start 12/26/16 at 20:30 Metoclopramide HCl (Reglan) 10 mg Q8 IV Last administered on 01/03/17 06:48; Admin Dose 10 MG; Start 12/27/16 at 06:00 Acetaminophen (Tylenol Liquid) 650 mg Q4H PRN GTB PAIN AND OR ELEVATED TEMP; Start 12/27/16 at 09:00 Acetazolamide (Diamox) 500 mg DAILY IV Last administered on 12/31/16 09:29; Admin Dose 500 MG; Start 12/27/16 at 11:00; Status Future Hold Atorvastatin Calcium (Lipitor) 40 mg HS GTB Last administered on 01/02/17 21: 30; Admin Dose 40 MG; Start 12/27/16 at 21:00 Citalopram Hydrobromide (Celexa) 40 mg DAILY GTB Last administered on 08:42; Admin Dose 40 MG; Start 12/27/16 at 09:00 Fluticasone Propionate (Flonase 0.05% Nasal) 2 spray BID NASAL Last administered on 01/03/17 08:43; Admin Dose 2 SPRAY; Start 12/27/16 at 11:00 Levothyroxine Sodium (Synthroid) 75 mcg DAILY@06 GTB Last administered on 06:38; Admin Dose 75 MCG; Start 12/28/16 at 06:00 Prednisone (Prednisone) 20 mg DAILY GTB Last administered on 01/03/17 08:42; Admin Dose 20 MG; Start 12/27/16 at 09:00 Zolpidem Tartrate (Ambien) 5 mg HS PRN PO INSOMNIA; Start 12/27/16 at 09:00 IV Flush (NS 10 ml) 10 ml PRN PRN IV IV PROTOCOL; Start 12/27/16 at 16:00 Metoprolol Tartrate (Lopressor) 100 mg BID GTB Last administered on 01/02/17 21:30; Admin Dose 100 MG; Start 12/30/16 at 09:00 Amlodipine Besylate (Norvasc) 10 mg DAILY GTB Last administered on 01/02/17 15 :38; Admin Dose 10 MG; Start 12/30/16 at 09:00; Status Future Hold Acetaminophen/ Hydrocodone Bitart ([place] (5/325)) 1 tab Q6H PO Last administered on 01/03/17 08:51; Admin Dose 1 TAB; Start 01/01/17 at 09:00 EMILIANO HICKS Jan 03, 2017 09:32
[2017-01-03] MEDS ORDERED: MAGNESIUM SULFATE 2 GM/50 ML 50 ML IVPB ONE (10:00)
--- NOTE | 2017-01-03 10:21 | PN ---
DATE: 01/03/2017 CARDIOLOGY FOLLOWUP SUBJECTIVE: Discussed with the staff. Rhythm strip was reviewed. The patient remains in sinus rhy thm, has frequent PVCs again. The patient had tracheostomy done yesterday. Denies any chest pain o r pressure to me. MEDICATIONS: Reviewed. PHYSICAL EXAMINATION: VITAL SIGNS: Temperature 98.2, heart rate of 73, blood pressure 92/64, respiratory rate of 19, satu rating 100%. HEENT: Normocephalic, atraumatic. Pupils are equal. NECK: Status post tracheostomy. CARDIOVASCULAR: Regular rate and rhythm, systolic murmur. PULMONARY: With no wheezes anteriorly. GASTROINTESTINAL: Soft, nontender. EXTREMITIES: With positive trivial edema. NEUROLOGIC: Awake, responds appropriately. PSYCHIATRIC: Appears to be calm. LABORATORY DATA: WBC of 18.6, hemoglobin 11.1, platelets 241. Sodium 142, potassium 4, BUN of 26, creatinine 0.76, glucose of 97. Chest x-ray done this morning shows new tracheostomy in place, card iomegaly. Diffuse prominence of interstitial markings likely secondary to interstitial edema or pne umonitis. ASSESSMENT AND PLAN: 1. Hypoxemic respiratory failure, status post tracheostomy now. 2. Status post cardiopulmonary arrest secondary to respiratory arrest. 3. Status post tracheostomy. 4. Pneumonia. 5. Frequent ventricular arrhythmias with frequent premature ventricular contractions. 6. Electrolyte abnormalities. 7. Anemia. 8. Dysphagia, status post percutaneous endoscopic gastrostomy placement. 9. Anasarca. 10. Critical care myopathy. RECOMMENDATIONS: We will continue to replace the electrolytes including potassium and magnesium. I will give extra magnesium today. Her respiratory care will be continued. Diuresis as per renal wi ll be continued. Nutritional support will be continued. Dictated By: FRANCISCO BRIGGS/NTS Conf#: [id number] DID#: [id number] CC: NINA MACIEL DO;*End*
--- NOTE | 2017-01-03 11:25 | CONS ---
Date/Time of Note Date/Time of Note DATE: 01/03/17 TIME: 11:22 Assessment/Plan Assessment/Plan Chief Complaint/Hosp Course SUBJECTIVE: No events overnight. No fevers. The patient is lying comfortably in bed. INDWELLINGS: trach, PEG, Latif, PICC line. PHYSICAL EXAMINATION: GENERAL: This is a fragile, elderly woman who is lying comfortably in bed. HEENT: Head atraumatic, normocephalic. Sclerae anicteric. Buccal mucosa dry. NECK: Supple. CHEST: Rise symmetrical. Breath sounds diminished. HEART: S1, S2. ABDOMEN: Soft. Bowel tones present. EXTREMITIES: Without cyanosis. ASSESSMENT: 1. Status post sepsis. 2. Status post cardiopulmonary arrest. 3. Acute respiratory failure. 4. Status post urinary tract infection and pneumonia. 5. Vancomycin-resistant Enterococcus stool colonization. 6. History of oral cancer. 7. Pneumoperitoneum, no active issues, surgery on case. PLAN: The patient remains stable off antibiotics. Continue present care. [facility] p.r.n. staff Problems: Consultation Date/Type/Reason Admit Date/Time Dec 26, 2016 at 15:25 Initial Consult Date 12/26/16 Type of Consultation: id Referring Provider: HILARY RUBIO MD Exam/Review of Systems Vital Signs Vitals Vital Signs Date Time Temp Pulse Resp B/P Pulse Ox O2 Delivery O2 Flow Rate FiO2 01/03/17 10:41 100 10.0 40 01/03/17 10:41 73 16 Aerosol T Tube 01/03/17 10:00 102/67 01/03/17 04:00 98.2 Intake and Output 01/02/17 01/02/17 01/03/17 15:00 23:00 07:00 Intake Total 272 ml 140 ml 410 ml Output Total 1321 ml 2220 ml 1210 ml Balance -1049 ml -2080 ml -800 ml Results Result Diagram: 01/03/17 0415 01/03/17 0415 Results 24 hrs Laboratory Tests Test 01/03/17 04:15 White Blood Count 13.6 #H Red Blood Count 3.63 L Hemoglobin 11.1 L Hematocrit 34.2 L Mean Corpuscular Volume 94.2 Mean Corpuscular Hemoglobin 30.6 Mean Corpuscular Hemoglobin Concent 32.5 Red Cell Distribution Width 16.3 H Platelet Count 241 Mean Platelet Volume 10.8 H Neutrophils % 69.7 Lymphocytes % 12.0 L Monocytes % 11.3 H Eosinophils % 2.9 Basophils % 0.2 Nucleated Red Blood Cells % 0.0 Neutrophils # 9.5 H Lymphocytes # 1.6 Monocytes # 1.5 H Eosinophils # 0.4 Basophils # 0.0 Nucleated Red Blood Cells # 0.0 Sodium Level 142 Potassium Level 4.0 Chloride Level 104 Carbon Dioxide Level 32 H Anion Gap 10 Blood Urea Nitrogen 26 H Creatinine 0.76 Glucose Level 97 Calcium Level 8.4 Phosphorus Level 4.3 Magnesium Level 2.0 Medications Medications Current Medications Ondansetron HCl (Zofran Inj) 4 mg Q6H PRN IV NAUSEA AND/OR VOMITING; Start at 16:00 Pantoprazole 40 mg 40 mg DAILY@06 IV Last administered on 01/03/17 06:38; Admin Dose 40 MG; Start 12/27/16 at 06:00 Propofol 100 ml @ 2.25 mls/hr Q12H IV Last administered on 01/02/17 03:23; Admin Dose 18 MLS/HR; Start 12/26/16 at 17:00 Norepinephrine/ Dextrose (Levophed/D5W) 500 ml @ 1.87 mls/hr TITRATE IV ; Start 12/26/16 at 20:30 Metoclopramide HCl (Reglan) 10 mg Q8 IV Last administered on 01/03/17 06:48; Admin Dose 10 MG; Start 12/27/16 at 06:00 Acetaminophen (Tylenol Liquid) 650 mg Q4H PRN GTB PAIN AND OR ELEVATED TEMP; Start 12/27/16 at 09:00 Acetazolamide (Diamox) 500 mg DAILY IV Last administered on 12/31/16 09:29; Admin Dose 500 MG; Start 12/27/16 at 11:00; Status Future Hold Atorvastatin Calcium (Lipitor) 40 mg HS GTB Last administered on 01/02/17 21: 30; Admin Dose 40 MG; Start 12/27/16 at 21:00 Citalopram Hydrobromide (Celexa) 40 mg DAILY GTB Last administered on 08:42; Admin Dose 40 MG; Start 12/27/16 at 09:00 Fluticasone Propionate (Flonase 0.05% Nasal) 2 spray BID NASAL Last administered on 01/03/17 08:43; Admin Dose 2 SPRAY; Start 12/27/16 at 11:00 Levothyroxine Sodium (Synthroid) 75 mcg DAILY@06 GTB Last administered on 06:38; Admin Dose 75 MCG; Start 12/28/16 at 06:00 Prednisone (Prednisone) 20 mg DAILY GTB Last administered on 01/03/17 08:42; Admin Dose 20 MG; Start 12/27/16 at 09:00 Zolpidem Tartrate (Ambien) 5 mg HS PRN PO INSOMNIA; Start 12/27/16 at 09:00 IV Flush (NS 10 ml) 10 ml PRN PRN IV IV PROTOCOL; Start 12/27/16 at 16:00 Metoprolol Tartrate (Lopressor) 100 mg BID GTB Last administered on 01/02/17 21:30; Admin Dose 100 MG; Start 12/30/16 at 09:00 Amlodipine Besylate (Norvasc) 10 mg DAILY GTB Last administered on 01/02/17 15 :38; Admin Dose 10 MG; Start 12/30/16 at 09:00; Status Future Hold Acetaminophen/ Hydrocodone Bitart 1 tab 1 tab Q6H PO Last administered on 08:51; Admin Dose 1 TAB; Start 01/01/17 at 09:00 Magnesium Sulfate (Magnesium Sulfate 2 Gm/50 ml) 50 ml @ 25 mls/hr ONCE ONCE IVPB ; Start 01/03/17 at 10:00; Stop 01/03/17 at 11:59 LORETO MCKEON NP Jan 03, 2017 11:24
--- NOTE | 2017-01-03 14:07 | PN ---
Date/Time of Note Date/Time of Note DATE: 01/03/17 TIME: 14:06 Assessment/Plan VTE Prophylaxis VTE Prophylaxis Intervention: other Lines/Catheters IV C[facility] Type [facility] Urinary Cath still in place: No Assessment/Plan Chief Complaint/Hosp Course Sp PTX New tracheostomy in place PTX resolved will monitor CXR continue Vent Support Problems: Subjective 24 Hr Interval Summary Gastrointestinal: no complaints Genitourinary: no complaints Musculoskeletal: no complaints Skin: no complaints Exam/Review of Systems Vital Signs Vitals Vital Signs Date Time Temp Pulse Resp B/P Pulse Ox O2 Delivery O2 Flow Rate FiO2 01/03/17 13:00 81 15 135/82 100 T Tube 01/03/17 12:00 98.0 01/03/17 10:41 10.0 40 Intake and Output 01/02/17 01/02/17 01/03/17 15:00 23:00 07:00 Intake Total 272 ml 140 ml 410 ml Output Total 1321 ml 2220 ml 1210 ml Balance -1049 ml -2080 ml -800 ml Exam Neck: non-tender, supple Respiratory: clear to auscultation, normal air movement Cardiovascular: nl pulses, regular rate and rhythm Results Result Diagram: 01/03/17 0415 01/03/17 0415 Results 24 hrs Laboratory Tests Test 01/03/17 04:15 White Blood Count 13.6 #H Red Blood Count 3.63 L Hemoglobin 11.1 L Hematocrit 34.2 L Mean Corpuscular Volume 94.2 Mean Corpuscular Hemoglobin 30.6 Mean Corpuscular Hemoglobin Concent 32.5 Red Cell Distribution Width 16.3 H Platelet Count 241 Mean Platelet Volume 10.8 H Neutrophils % 69.7 Lymphocytes % 12.0 L Monocytes % 11.3 H Eosinophils % 2.9 Basophils % 0.2 Nucleated Red Blood Cells % 0.0 Neutrophils # 9.5 H Lymphocytes # 1.6 Monocytes # 1.5 H Eosinophils # 0.4 Basophils # 0.0 Nucleated Red Blood Cells # 0.0 Sodium Level 142 Potassium Level 4.0 Chloride Level 104 Carbon Dioxide Level 32 H Anion Gap 10 Blood Urea Nitrogen 26 H Creatinine 0.76 Glucose Level 97 Calcium Level 8.4 Phosphorus Level 4.3 Magnesium Level 2.0 Medications Medications Current Medications Ondansetron HCl (Zofran Inj) 4 mg Q6H PRN IV NAUSEA AND/OR VOMITING; Start at 16:00 Pantoprazole 40 mg 40 mg DAILY@06 IV Last administered on 01/03/17 06:38; Admin Dose 40 MG; Start 12/27/16 at 06:00 Propofol 100 ml @ 2.25 mls/hr Q12H IV Last administered on 01/02/17 03:23; Admin Dose 18 MLS/HR; Start 12/26/16 at 17:00 Norepinephrine/ Dextrose (Levophed/D5W) 500 ml @ 1.87 mls/hr TITRATE IV ; Start 12/26/16 at 20:30 Metoclopramide HCl (Reglan) 10 mg Q8 IV Last administered on 01/03/17 06:48; Admin Dose 10 MG; Start 12/27/16 at 06:00 Acetaminophen (Tylenol Liquid) 650 mg Q4H PRN GTB PAIN AND OR ELEVATED TEMP; Start 12/27/16 at 09:00 Acetazolamide (Diamox) 500 mg DAILY IV Last administered on 12/31/16 09:29; Admin Dose 500 MG; Start 12/27/16 at 11:00; Status Future Hold Atorvastatin Calcium (Lipitor) 40 mg HS GTB Last administered on 01/02/17 21: 30; Admin Dose 40 MG; Start 12/27/16 at 21:00 Citalopram Hydrobromide (Celexa) 40 mg DAILY GTB Last administered on 08:42; Admin Dose 40 MG; Start 12/27/16 at 09:00 Fluticasone Propionate (Flonase 0.05% Nasal) 2 spray BID NASAL Last administered on 01/03/17 08:43; Admin Dose 2 SPRAY; Start 12/27/16 at 11:00 Levothyroxine Sodium (Synthroid) 75 mcg DAILY@06 GTB Last administered on 06:38; Admin Dose 75 MCG; Start 12/28/16 at 06:00 Prednisone (Prednisone) 20 mg DAILY GTB Last administered on 01/03/17 08:42; Admin Dose 20 MG; Start 12/27/16 at 09:00 Zolpidem Tartrate (Ambien) 5 mg HS PRN PO INSOMNIA; Start 12/27/16 at 09:00 IV Flush (NS 10 ml) 10 ml PRN PRN IV IV PROTOCOL; Start 12/27/16 at 16:00 Metoprolol Tartrate (Lopressor) 100 mg BID GTB Last administered on 01/02/17 21:30; Admin Dose 100 MG; Start 12/30/16 at 09:00 Amlodipine Besylate (Norvasc) 10 mg DAILY GTB Last administered on 01/02/17 15 :38; Admin Dose 10 MG; Start 12/30/16 at 09:00; Status Future Hold Acetaminophen/ Hydrocodone Bitart ([place] (5/325)) 1 tab Q6H PO Last administered on 01/03/17 08:51; Admin Dose 1 TAB; Start 01/01/17 at 09:00 FANNY BLACK MD Jan 03, 2017 14:07
[2017-01-03 14:27] LABS: AADO2 Arterial 61.1 mmHg (7.0-24.0); Allen Test ACCEPTAB; Arterial Base Excess 3.6 mmol/L (-3.0-3); Arterial COHb 0.3 % (0.0-3.0); Arterial Fraction of Oxyhgb 98.1 % (93.0-99.0); Arterial HCO3 28.5 mmol/L (22.0-26.0); Arterial MetHb 0.5 % (0.0-1.5); Arterial Total Hemglobin 12.9 g/dl (12.0-18.0); MODE TRACH COLLAR
--- NOTE | 2017-01-03 14:48 | CONS ---
Date/Time of Note Date/Time of Note DATE: 01/03/17 TIME: 14:47 Assessment/Plan Assessment/Plan Additional Assessment/Plan IMPRESSION: 1. Subcutaneous emphysema which is dissected into the peritoneum. 2. Left apical pneumothorax. 3. Pneumomediastinum. 4. Malfunctioning G-tube which is changed at bedside now. 5. Anemia. No active gastrointestinal bleeding is noted.bleeding from tracheostomy site 6. Vent-dependent respiratory failure. 7. Acute tracheal bleed. 8. Adrenal insufficiency for which patient is on steroids. 9. Leukocytosis, improving. 10. Atrial fibrillation. 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 12. s/p tracheostomy,no adverse event Plan continue feeding,pt.has no signs of peritonitis,increase feeding to 50 cc/hr, which pt is tolerating Monitor H&H continue antibiotics Consultation Date/Type/Reason Admit Date/Time Dec 26, 2016 at 15:25 Initial Consult Date 12/26/16 Type of Consultation: id Referring Provider: HILARY RUBIO MD 24 HR Interval Summary Constitutional: no complaints Exam/Review of Systems Vital Signs Vitals Vital Signs Date Time Temp Pulse Resp B/P Pulse Ox O2 Delivery O2 Flow Rate FiO2 01/03/17 14:38 100 8.0 35 01/03/17 13:59 85 17 Aerosol T Tube 01/03/17 13:00 135/82 01/03/17 12:00 98.0 Intake and Output 01/02/17 01/02/17 01/03/17 15:00 23:00 07:00 Intake Total 272 ml 140 ml 410 ml Output Total 1321 ml 2220 ml 1210 ml Balance -1049 ml -2080 ml -800 ml Exam Constitutional: alert, oriented, well developed Psych: nl mood/affect, no complaints Head: atraumatic, normocephalic Eyes: EOMI, PERRL, nl conjunctiva, nl lids, nl sclera ENMT: nl external ears & nose, nl lips & teeth, nl nasal mucosa & septum Neck: non-tender, supple Respiratory: clear to auscultation, normal air movement Cardiovascular: nl pulses, regular rate and rhythm Gastrointestinal: nl liver, spleen, non-tender, soft Musculoskeletal: nl extremities to inspection, nl gait and stance Extremities: normal pulses Neurological: WAFER FABRICATOR II-XII intact, nl mental status, nl speech, nl strength Skin: nl turgor, No rash or lesions Lymph: nl lymph nodes Results Result Diagram: 01/03/17 0415 01/03/17 0415 Results 24 hrs Laboratory Tests Test 01/03/17 04:15 01/03/17 13:34 White Blood Count 13.6 #H Red Blood Count 3.63 L Hemoglobin 11.1 L Hematocrit 34.2 L Mean Corpuscular Volume 94.2 Mean Corpuscular Hemoglobin 30.6 Mean Corpuscular Hemoglobin Concent 32.5 Red Cell Distribution Width 16.3 H Platelet Count 241 Mean Platelet Volume 10.8 H Neutrophils % 69.7 Lymphocytes % 12.0 L Monocytes % 11.3 H Eosinophils % 2.9 Basophils % 0.2 Nucleated Red Blood Cells % 0.0 Neutrophils # 9.5 H Lymphocytes # 1.6 Monocytes # 1.5 H Eosinophils # 0.4 Basophils # 0.0 Nucleated Red Blood Cells # 0.0 Sodium Level 142 Potassium Level 4.0 Chloride Level 104 Carbon Dioxide Level 32 H Anion Gap 10 Blood Urea Nitrogen 26 H Creatinine 0.76 Glucose Level 97 Calcium Level 8.4 Phosphorus Level 4.3 Magnesium Level 2.0 Blood Gas Specimen Source Blood arterial Arterial Blood Date Drawn 01/03/2017 2:10:28 PM Arterial Blood pH (Temp corrected) 7.427 Arterial Blood pCO2 (Temp correct) 44.3 Arterial Blood pO2 (Temp corrected) 173.2 H Arterial Blood HCO3 28.5 H Arterial Blood Base Excess 3.6 H Arterial Blood Oxygen Saturation 98.9 H Jonn Test ACCEPTAB Arterial Blood Gas Puncture Site Right Radial Arterial Blood Carboxyhemoglobin 0.3 Arterial Blood Methemoglobin 0.5 Blood Gas A-a O2 Differential 61.1 H Oxyhemoglobin Percent 98.1 Total Hemoglobin 12.9 Blood Gas Temperature 37.0 Blood Gas Modality TRACH COLLAR FiO2 40.0 Blood Gas Notified Whom JLD Blood Gas Notified Time 01/03/2017 2:27:11 PM Medications Medications Current Medications Ondansetron HCl (Zofran Inj) 4 mg Q6H PRN IV NAUSEA AND/OR VOMITING; Start at 16:00 Pantoprazole 40 mg 40 mg DAILY@06 IV Last administered on 01/03/17t 06:38; Admin Dose 40 MG; Start 12/27/16 at 06:00 Propofol 100 ml @ 2.25 mls/hr Q12H IV Last administered on 01/02/17 03:23; Admin Dose 18 MLS/HR; Start 12/26/16 at 17:00 Norepinephrine/ Dextrose (Levophed/D5W) 500 ml @ 1.87 mls/hr TITRATE IV ; Start 12/26/16 at 20:30 Metoclopramide HCl (Reglan) 10 mg Q8 IV Last administered on 01/03/17 14:45; Admin Dose 10 MG; Start 12/27/16 at 06:00 Acetaminophen (Tylenol Liquid) 650 mg Q4H PRN GTB PAIN AND OR ELEVATED TEMP; Start 12/27/16 at 09:00 Acetazolamide (Diamox) 500 mg DAILY IV Last administered on 12/31/16 09:29; Admin Dose 500 MG; Start 12/27/16 at 11:00; Status Future Hold Atorvastatin Calcium (Lipitor) 40 mg HS GTB Last administered on 01/02/17 21: 30; Admin Dose 40 MG; Start 12/27/16 at 21:00 Citalopram Hydrobromide (Celexa) 40 mg DAILY GTB Last administered on 08:42; Admin Dose 40 MG; Start 12/27/16 at 09:00 Fluticasone Propionate (Flonase 0.05% Nasal) 2 spray BID NASAL Last administered on 01/03/17 08:43; Admin Dose 2 SPRAY; Start 12/27/16 at 11:00 Levothyroxine Sodium (Synthroid) 75 mcg DAILY@06 GTB Last administered on 06:38; Admin Dose 75 MCG; Start 12/28/16 at 06:00 Prednisone (Prednisone) 20 mg DAILY GTB Last administered on 01/03/17 08:42; Admin Dose 20 MG; Start 12/27/16 at 09:00 Zolpidem Tartrate (Ambien) 5 mg HS PRN PO INSOMNIA; Start 12/27/16 at 09:00 IV Flush (NS 10 ml) 10 ml PRN PRN IV IV PROTOCOL; Start 12/27/16 at 16:00 Metoprolol Tartrate (Lopressor) 100 mg BID GTB Last administered on 01/02/17 21:30; Admin Dose 100 MG; Start 12/30/16 at 09:00 Amlodipine Besylate (Norvasc) 10 mg DAILY GTB Last administered on 01/02/17 15 :38; Admin Dose 10 MG; Start 12/30/16 at 09:00; Status Future Hold Acetaminophen/ Hydrocodone Bitart ([place] (5/325)) 1 tab Q6H PO Last administered on 01/03/17 14:45; Admin Dose 1 TAB; Start 01/01/17 at 09:00 ALYSSA THOMPSON MD Jan 03, 2017 14:48
--- NOTE | 2017-01-03 15:37 | CONS ---
DATE OF ADMISSION: 12/26/2016 DATE OF CONSULTATION: GI CONSULT FOLLOWUP SUBJECTIVE: No complaint. OBJECTIVE: VITAL SIGNS: Stable. ABDOMEN: Benign. She is tolerating feeding. LUNGS: The patient has got oroendotracheal tube, on vent. EXTREMITIES: No edema. LABORATORY DATA: Hematocrit is stable. IMPRESSION: 1. Pneumoperitoneum secondary to barotrauma from difficult intubation, no evidence of peritonitis, no abdominal pathology. 2. Status post G-tube for dysphagia. Change of G-tube was done in the ICU and patient is toleratin g the feedings. 3. Bilateral pneumonia for which patient is on antibiotic. 4. Oroendotracheal tube and now patient is heading for tracheostomy. 5. Anemia. 6. 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 7. 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 8. Ventilator-dependent respiratory failure. PLAN: Continue present care. Dictated By: ALYSSA THOMPSON MD PJ/NTS Conf#: [id number] DID#: [id number] CC: ALYSSA THOMPSON MD;*EndCC*
--- NOTE | 2017-01-03 19:43 | PN ---
Date/Time of Note Date/Time of Note DATE: 01/03/17 TIME: 19:41 Assessment/Plan Lines/Catheters IV Catheter Type (from [facility]): Latif in Place (from [facility]): No Assessment/Plan Chief Complaint/Hosp Course 1. Pneumoperitoneum. I doubt this is from an abdominal source; however, differential diagnosis includes air from feeding tube placement versus intestinal rupture versus esophageal rupture versus tracheal rupture or leak from the tracheostomy versus barotrauma from pneumothorax. The findings have been since the , which is right after her code when the trach was removed and an ET tube was placed. The findings are also prior to the placement of the percutaneous endoscopic gastrostomy. -supportive measures -antibiotics -ENT following -CTX following 2. Pneumomediastinum, pneumothorax, and subcutaneous emphysema, probably secondary to above process. Thoracic surgery following 3. Code arrest. Probably aspiration. Continue medical optimization and pulmonary support. Continue antibiotics. 4. History of oral cancer status post resection with possible recurrence. Will defer to ENT. No active bleeding at this time. 5. Anemia, multifactorial. Continue close monitoring and transfuse as needed. 6. Leukocytosis, possible multifactorial with adrenal insufficiency requiring steroids versus acute infectious process, and/or systemic inflammatory response syndrome. Continue antibiotics, supportive care, and steroids, weaning per medical service. Improving 7. History of atrial fibrillation, currently in sinus. 8. Dysphagia, status post percutaneous endoscopic gastrostomy on feedings, which are held. However, if the CT is negative for intraabdominal source, may resume feeding. 9. History of hypertension. Continue medical optimization. Thank you Problems: Subjective 24 Hr Interval Summary Leukocytosis. No fever, chills, vomiting. No cough. No sz. No rash. No bloating. No pyuria. No blood per mouth, rectum, urine, or trach site. No color changes. Exam/Review of Systems Vital Signs Vitals Vital Signs Date Time Temp Pulse Resp B/P Pulse Ox O2 Delivery O2 Flow Rate FiO2 01/03/17 17:09 99 8.0 35 01/03/17 17:09 83 15 Aerosol T Tube 01/03/17 17:00 116/62 01/03/17 16:00 97.5 Intake and Output 01/02/17 01/02/17 01/03/17 15:00 23:00 07:00 Intake Total 272 ml 140 ml 410 ml Output Total 1321 ml 2220 ml 1210 ml Balance -1049 ml -2080 ml -800 ml Exam Free Text/Dictation GENERAL: Ventilated. Noncommunicative. BMI of 30. HEENT: Pupils are sluggish. No scleral icterus. Mucous membranes are moist. NECK: Trach in place. Minimal crepitus. JVD not visible. PULMONARY: Minimally coarse. Normal effort. No wheezing. CARDIAC: S1, S2 present. ABDOMEN: Soft and minimally tender to deep palpation with grimacing. PEG in place. VASCULAR: Capillary refill is 2 seconds. NEUROLOGIC: Opens eyes and tracks. PSYCHIATRIC: Noncommunicative. SKIN: No rashes, no jaundice. Diffuse edema. LYMPHATICS: No inguinal or cervical lymph nodes. Results Result Diagram: 01/03/17 0415 01/03/17 0415 PATRICK QUINTERO MD Jan 03, 2017 19:43
[2017-01-03] MEDS: ATORVASTATIN 40 MG TAB GTB SCH (22:12)
[2017-01-03] MEDS: IPRATROPIUM (NEB) 0.5 MG/2.5 ML AMP HHN SCH (23:27)
[2017-01-03] MEDS: LEVALBUTEROL (NEB) 1.25 MG/0.5 ML AMP HHN SCH (23:27)
--- NOTE | 2017-01-03 23:46 | CONS ---
Date/Time of Note Date/Time of Note DATE: 01/03/17 TIME: 23:45 Assessment/Plan Assessment/Plan Chief Complaint/Hosp Course ASSESSMENT AND PLAN: This is a 66-year-old female who presents with: Anemia n -cytic with increased RDW, WITH SIGNIFICANT DROP H/H DURING HOSPITALIZATION post 2 u PRBC + COMPONENT ACD HX ANEMIA of chronic disease. Continue to monitor hemoglobin and hematocrit levels. OBSERVE FOR BLEEDING AND HEMOLYSIS TRANSFUSE TO KEEP HB ABOVE 8 History of tongue cancer status post surgical resection. The possibility of recurrence at the outside hospital- NOT SEEN ON CURRENT EXAM POST revision tracheostomy ENT F-UP Leukocytosis. Etiology is likely multifactorial secondary to steroids, sepsis. Status post code arrest. Etiology may be secondary to aspiration, hypoxemia. The patient had spontaneous return of circulation. Ventilator dependent respiratory failure. The patient is status post intubation. Currently stable. ABG has been reviewed. Vent settings have been reviewed. We will continue to monitor. Follow up with Pulmonary. Acute tracheal bleed. Underlying etiology is unclear. The patient's tracheostomy was removed. ENT consult for further evaluation with Dr. Carpio and monitor closely. Sepsis secondary to likely aspiration pneumonia. We will continue current broad spectrum antibiotics. Follow up cultures. Follow up with Infectious Disease. History of adrenal insufficiency. post stress dose of hydrocortisone. Paroxysmal atrial fibrillation, currently in sinus rhythm. Continue to monitor. Continue medical management. Hypothyroidism. ON Synthroid. Hypertension. Blood pressure is currently normotensive. Continue to monitor. Dysphagia, status post PEG. History of volume overload, diastolic heart failure. History of critical care myopathy. Continue to monitor. Gastrointestinal and deep venous thrombosis prophylaxis. Continue proton pump inhibitor and sequential leg squeezers. Problems: Consultation Date/Type/Reason Admit Date/Time Dec 26, 2016 at 15:25 Initial Consult Date 12/29/16 Type of Consultation: [facility] Referring Provider: HILARY RUBIO MD 24 HR Interval Summary Free Text/Dictation ALL NOTED NO BLEEDING + LEUKOCYTOSIS Exam/Review of Systems Vital Signs Vitals Vital Signs Date Time Temp Pulse Resp B/P Pulse Ox O2 Delivery O2 Flow Rate FiO2 01/03/17 23:29 74 20 95 Aerosol 8.0 35 T Tube 01/03/17 19:00 129/82 01/03/17 16:00 97.5 Intake and Output 01/02/17 01/02/17 01/03/17 15:00 23:00 07:00 Intake Total 272 ml 140 ml 410 ml Output Total 1321 ml 2220 ml 1210 ml Balance -1049 ml -2080 ml -800 ml Exam Exam Free Text/Dictation GENERAL: Ventilated. Noncommunicative. BMI of 30. HEENT: Pupils are sluggish. No scleral icterus. Mucous membranes are moist. NECK: Trach in place. Minimal crepitus. JVD not visible. PULMONARY: Normal effort. No wheezing. CARDIAC: S1, S2 present. ABDOMEN: Soft, nt. PEG in place. VASCULAR: Capillary refill is 2 seconds. NEUROLOGIC: Opens eyes and tracks. PSYCHIATRIC: Noncommunicative. SKIN: No rashes, no jaundice. Diffuse edema. LYMPHATICS: No inguinal or cervical lymph nodes. Results Result Diagram: 01/03/17 0415 01/03/17 0415 Results 24 hrs Laboratory Tests Test 01/03/17 04:15 01/03/17 13:34 White Blood Count 13.6 #H Red Blood Count 3.63 L Hemoglobin 11.1 L Hematocrit 34.2 L Mean Corpuscular Volume 94.2 Mean Corpuscular Hemoglobin 30.6 Mean Corpuscular Hemoglobin Concent 32.5 Red Cell Distribution Width 16.3 H Platelet Count 241 Mean Platelet Volume 10.8 H Neutrophils % 69.7 Lymphocytes % 12.0 L Monocytes % 11.3 H Eosinophils % 2.9 Basophils % 0.2 Nucleated Red Blood Cells % 0.0 Neutrophils # 9.5 H Lymphocytes # 1.6 Monocytes # 1.5 H Eosinophils # 0.4 Basophils # 0.0 Nucleated Red Blood Cells # 0.0 Sodium Level 142 Potassium Level 4.0 Chloride Level 104 Carbon Dioxide Level 32 H Anion Gap 10 Blood Urea Nitrogen 26 H Creatinine 0.76 Glucose Level 97 Calcium Level 8.4 Phosphorus Level 4.3 Magnesium Level 2.0 Blood Gas Specimen Source Blood arterial Arterial Blood Date Drawn 01/03/2017 2:10:28 PM Arterial Blood pH (Temp corrected) 7.427 Arterial Blood pCO2 (Temp correct) 44.3 Arterial Blood pO2 (Temp corrected) 173.2 H Arterial Blood HCO3 28.5 H Arterial Blood Base Excess 3.6 H Arterial Blood Oxygen Saturation 98.9 H Jonn Test ACCEPTAB Arterial Blood Gas Puncture Site Right Radial Arterial Blood Carboxyhemoglobin 0.3 Arterial Blood Methemoglobin 0.5 Blood Gas A-a O2 Differential 61.1 H Oxyhemoglobin Percent 98.1 Total Hemoglobin 12.9 Blood Gas Temperature 37.0 Blood Gas Modality TRACH COLLAR FiO2 40.0 Blood Gas Notified Whom JLD Blood Gas Notified Time 01/03/2017 2:27:11 PM Medications Medications Current Medications Ondansetron HCl (Zofran Inj) 4 mg Q6H PRN IV NAUSEA AND/OR VOMITING; Start at 16:00 Pantoprazole 40 mg 40 mg DAILY@06 IV Last administered on 01/03/17 06:38; Admin Dose 40 MG; Start 12/27/16 at 06:00 Propofol 100 ml @ 2.25 mls/hr Q12H IV Last administered on 01/02/17 03:23; Admin Dose 18 MLS/HR; Start 12/26/16 at 17:00 Norepinephrine/ Dextrose (Levophed/D5W) 500 ml @ 1.87 mls/hr TITRATE IV ; Start 12/26/16 at 20:30 Metoclopramide HCl (Reglan) 10 mg Q8 IV Last administered on 01/03/17 22:12; Admin Dose 10 MG; Start 12/27/16 at 06:00 Acetaminophen (Tylenol Liquid) 650 mg Q4H PRN GTB PAIN AND OR ELEVATED TEMP; Start 12/27/16 at 09:00 Acetazolamide (Diamox) 500 mg DAILY IV Last administered on 12/31/16 09:29; Admin Dose 500 MG; Start 12/27/16 at 11:00; Status Future Hold Atorvastatin Calcium (Lipitor) 40 mg HS GTB Last administered on 01/03/17 22: 12; Admin Dose 40 MG; Start 12/27/16 at 21:00 Citalopram Hydrobromide (Celexa) 40 mg DAILY GTB Last administered on 08:42; Admin Dose 40 MG; Start 12/27/16 at 09:00 Fluticasone Propionate (Flonase 0.05% Nasal) 2 spray BID NASAL Last administered on 01/03/17 08:43; Admin Dose 2 SPRAY; Start 12/27/16 at 11:00 Levothyroxine Sodium (Synthroid) 75 mcg DAILY@06 GTB Last administered on 06:38; Admin Dose 75 MCG; Start 12/28/16 at 06:00 Prednisone (Prednisone) 20 mg DAILY GTB Last administered on 01/03/17 08:42; Admin Dose 20 MG; Start 12/27/16 at 09:00 Zolpidem Tartrate (Ambien) 5 mg HS PRN PO INSOMNIA; Start 12/27/16 at 09:00 IV Flush (NS 10 ml) 10 ml PRN PRN IV IV PROTOCOL; Start 12/27/16 at 16:00 Metoprolol Tartrate (Lopressor) 100 mg BID GTB Last administered on 01/03/17 22:11; Admin Dose 100 MG; Start 12/30/16 at 09:00 Amlodipine Besylate (Norvasc) 10 mg DAILY GTB Last administered on 01/02/17 15 :38; Admin Dose 10 MG; Start 12/30/16 at 09:00; Status Future Hold Acetaminophen/ Hydrocodone Bitart ([place] (5/325)) 1 tab Q6H PO Last administered on 01/03/17 22:12; Admin Dose 1 TAB; Start 01/01/17 at 09:00 FREDERICK DAIGLE MD Jan 03, 2017 23:46
[2017-01-04] VITALS (20 sets, daily range): BP systolic 88–131; BP diastolic 40–103; PULSE 74–103; RESP 13–21
[2017-01-04] MEDS: LEVALBUTEROL (NEB) 1.25 MG/0.5 ML AMP HHN SCH ×3 (01:10→14:04)
[2017-01-04] MEDS: IPRATROPIUM (NEB) 0.5 MG/2.5 ML AMP HHN SCH ×3 (01:10→14:04)
[2017-01-04] MEDS: HYDROCODONE/APAP (5/325) TAB PO SCH ×3 (04:24→15:10)
[2017-01-04] MEDS: PROPOFOL 100 ML IV SCH (05:00)
[2017-01-04] MEDS: PANTOPRAZOLE 40 MG INJ IV SCH (06:40)
[2017-01-04] MEDS: FUROSEMIDE 20 MG INJ IV SCH ×2 (06:43→18:03)
[2017-01-04] MEDS: METOCLOPRAMIDE 10 MG INJ IV SCH ×2 (06:43→15:10)
[2017-01-04] MEDS: LEVOTHYROXINE 75 MCG TAB GTB SCH (06:43)
[2017-01-04 07:04] LABS: ADD SCAN DIFF NO
[2017-01-04 07:09] LABS: BASOPHILS % 0.1 % (0.0-2.0); EOSINOPHILS # 0.2 10^3/ul (0.0-0.5); EOSINOPHILS % 1.5 % (0.0-7.0); HEMATOCRIT 31.9 % (37.0-47.0); HEMOGLOBIN 10.3 g/dl (12.0-16.0); LYMPHOCYTES # 1.1 10^3/ul (0.8-2.9); LYMPHOCYTES % 8.6 % (15.0-51.0); MEAN CORPUSCULAR HEMOGLOBIN 30.3 pg (29.0-33.0); MEAN CORPUSCULAR HGB CONC 32.3 g/dl (32.0-37.0); MEAN CORPUSCULAR VOLUME 93.8 fl (82.0-101.0); MEAN PLATELET VOLUME 10.8 fl (7.4-10.4); NEUTROPHIL # 10.3 10^3/ul (1.6-7.5); NEUTROPHILS % 80.3 % (39.0-77.0); PLATELET COUNT 203 10^3/UL (140-415); RED CELL DISTRIBUTION WIDTH 15.6 % (11.5-14.5); WHITE BLOOD COUNT 12.8 10^3/ul (4.8-10.8)
[2017-01-04 07:25] LABS: POTASSIUM 3.8 mmol/L (3.5-5.1)
[2017-01-04 07:27] LABS: CREATININE 0.69 mg/dl (0.44-1.00)
[2017-01-04 07:28] LABS: CALCIUM 8.2 mg/dl (8.4-10.2); MAGNESIUM 2.3 mg/dl (1.7-2.5); PHOSPHORUS 3.5 mg/dl (2.5-4.9)
[2017-01-04] MEDS: METOPROLOL 100 MG TAB GTB SCH (09:00)
[2017-01-04] MEDS: CITALOPRAM 20 MG TAB GTB SCH (09:59)
[2017-01-04] MEDS: predniSONE 20 MG TAB GTB SCH (10:00)
[2017-01-04] MEDS: FLUTICASONE 0.05% 16 GM NAS SPRAY NASAL SCH (10:01)
--- NOTE | 2017-01-04 11:17 | DS ---
DATE OF ADMISSION: 12/26/2016 DATE OF DISCHARGE: HOSPITAL COURSE: This is a 66-year-old female with a past medical history of tongue cancer diagnose d 10 years ago, status post resection with reconstruction surgery, history of hypertension, dysphagi a, status post PEG, who initially presented to outside hospital in September for shortness of breath. The patient at that time was diagnosed with healthcare-associated pneumonia due to Pseudomonas. The patient during the hospital course had intermittent nose bleeding and had a prolonged hospital c ourse complicated with respiratory failure requiring intubation and extubation and reintubation. Th e patient was eventually trached. The patient was stabilized and transferred to [facility] for continued care. While at [facility], the patient after having a trach change had profuse ble eding and epistaxis. She suffered a code arrest. The patient had spontaneous return of circulation and was brought to the [facility]. While at [facility], the pa tiepatricia was initially vent dependent. She was seen by stock taker, Dr. Mena, and ENT, Dr. Carpio . The patient had no further bleeding around the tracheal site. The patient was noted to be stable for about 1 week, had a replacement of her trach with revision of her ostomy site. Following trach placement, the patient has been clinically stable without any acute complications. The patient's other acute medical problems during the hospital course included sepsis secondary to a spiration pneumonia. She has been on IV antibiotics with clinical improvement. The patient also had paroxysmal atrial fibrillation, hypothyroidism, hypertension, dysphagia, anemia of chronic disease . These medical problems have been stable during the hospital course. Currently, at this time, the patient is hemodynamically stable and there has been no recurrence of bleeding. The patient will be treated is transferred to [facility] for continued care. At the time of discharge, the patient is stable, in no acute distress. Please also note that the pa tiepatricia did have decompensated heart failure during the hospital course, was treated with diuretic the rapy with improved clinical response. FINAL DIAGNOSES: 1. Status post code arrest. 2. Ventilator-dependent respiratory failure. 3. Status post trach placement. 4. Pneumothorax, resolved. 5. Sepsis, second to aspiration pneumonia and urinary tract infection. 6. Anemia. 7. Leukocytosis. 8. History of adrenal insufficiency. 9. Tongue cancer. 10. Paroxysmal atrial fibrillation. 11. Hypothyroidism. 12. Hypertension. 13. Acute diastolic heart failure. 14. Dysphagia, status post percutaneous endoscopic gastrostomy. 15. Electrolyte abnormalities. 16. Status post tracheal bleed. 17. History of critical care myopathy. FINAL MEDICATIONS: See reconciliation list. Please note at the time of transfer, the patient is stable, in no acute distress. Please note I spent over 40 minutes of time preparing the patient's transfer. Dictated By: NINA PEREIRA/BALDO Conf#: [id number] DID#: [id number]
--- NOTE | 2017-01-04 11:51 | PN ---
Date/Time of Note Date/Time of Note DATE: 01/04/17 TIME: 11:50 Assessment/Plan VTE Prophylaxis VTE Prophylaxis Intervention: other Lines/Catheters IV Catheter Type (from Nrs): Central line still needed: No Urinary Cath still in place: No Assessment/Plan Chief Complaint/Hosp Course Sp PTX New tracheostomy in place PTX resolved will monitor CXR continue Vent Support trach care Problems: Subjective 24 Hr Interval Summary Gastrointestinal: no complaints Genitourinary: no complaints Musculoskeletal: no complaints Skin: no complaints Neurologic: no complaints Exam/Review of Systems Vital Signs Vitals Vital Signs Date Time Temp Pulse Resp B/P Pulse Ox O2 Delivery O2 Flow Rate FiO2 01/04/17 09:00 88 17 105/54 99 T Tube 01/04/17 08:00 98.0 01/04/17 07:59 8.0 35 Intake and Output 01/03/17 01/03/17 01/04/17 15:00 23:00 07:00 Intake Total 500 ml 500 ml 600 ml Output Total 1780 ml 1300 ml 830 ml Balance -1280 ml -800 ml -230 ml Exam Eyes: EOMI, PERRL, nl conjunctiva, nl lids, nl sclera ENMT: nl external ears & nose, nl lips & teeth, nl nasal mucosa & septum Neck: non-tender, supple Respiratory: clear to auscultation, normal air movement Cardiovascular: nl pulses, regular rate and rhythm Results Result Diagram: 01/04/17 0650 01/04/17 0650 Results 24 hrs Laboratory Tests Test 01/03/17 13:34 01/04/17 06:50 Blood Gas Specimen Source Blood arterial Arterial Blood Date Drawn 01/03/2017 2:10:28 PM Arterial Blood pH (Temp corrected) 7.427 Arterial Blood pCO2 (Temp correct) 44.3 Arterial Blood pO2 (Temp corrected) 173.2 H Arterial Blood HCO3 28.5 H Arterial Blood Base Excess 3.6 H Arterial Blood Oxygen Saturation 98.9 H Jonn Test ACCEPTAB Arterial Blood Gas Puncture Site Right Radial Arterial Blood Carboxyhemoglobin 0.3 Arterial Blood Methemoglobin 0.5 Blood Gas A-a O2 Differential 61.1 H Oxyhemoglobin Percent 98.1 Total Hemoglobin 12.9 Blood Gas Temperature 37.0 Blood Gas Modality TRACH COLLAR FiO2 40.0 Blood Gas Notified Whom JAYDAD Blood Gas Notified Time 01/03/2017 2:27:11 PM White Blood Count 12.8 H Red Blood Count 3.40 L Hemoglobin 10.3 L Hematocrit 31.9 L Mean Corpuscular Volume 93.8 Mean Corpuscular Hemoglobin 30.3 Mean Corpuscular Hemoglobin Concent 32.3 Red Cell Distribution Width 15.6 H Platelet Count 203 Mean Platelet Volume 10.8 H Neutrophils % 80.3 H Lymphocytes % 8.6 L Monocytes % 8.0 Eosinophils % 1.5 Basophils % 0.1 Nucleated Red Blood Cells % 0.0 Neutrophils # 10.3 H Lymphocytes # 1.1 Monocytes # 1.0 H Eosinophils # 0.2 Basophils # 0.0 Nucleated Red Blood Cells # 0.0 Sodium Level 138 Potassium Level 3.8 Chloride Level 98 Carbon Dioxide Level 35 H Anion Gap 9 Blood Urea Nitrogen 27 H Creatinine 0.69 Glucose Level 161 Calcium Level 8.2 L Phosphorus Level 3.5 Magnesium Level 2.3 Medications Medications Current Medications Ondansetron HCl (Zofran Inj) 4 mg Q6H PRN IV NAUSEA AND/OR VOMITING; Start at 16:00 Pantoprazole 40 mg 40 mg DAILY@06 IV Last administered on 01/04/17 06:40; Admin Dose 40 MG; Start 12/27/16 at 06:00 Propofol 100 ml @ 2.25 mls/hr Q12H IV Last administered on 01/02/17 03:23; Admin Dose 18 MLS/HR; Start 12/26/16 at 17:00 Norepinephrine/ Dextrose (Levophed/D5W) 500 ml @ 1.87 mls/hr TITRATE IV ; Start 12/26/16 at 20:30 Metoclopramide HCl (Reglan) 10 mg Q8 IV Last administered on 01/04/17 06:43; Admin Dose 10 MG; Start 12/27/16 at 06:00 Acetaminophen (Tylenol Liquid) 650 mg Q4H PRN GTB PAIN AND OR ELEVATED TEMP; Start 12/27/16 at 09:00 Acetazolamide (Diamox) 500 mg DAILY IV Last administered on 12/31/16 09:29; Admin Dose 500 MG; Start 12/27/16 at 11:00; Status Future Hold Atorvastatin Calcium (Lipitor) 40 mg HS GTB Last administered on 01/03/17 22: 12; Admin Dose 40 MG; Start 12/27/16 at 21:00 Citalopram Hydrobromide (Celexa) 40 mg DAILY GTB Last administered on 09:59; Admin Dose 40 MG; Start 12/27/16 at 09:00 Fluticasone Propionate (Flonase 0.05% Nasal) 2 spray BID NASAL Last administered on 01/04/17 10:01; Admin Dose 2 SPRAY; Start 12/27/16 at 11:00 Levothyroxine Sodium (Synthroid) 75 mcg DAILY@06 GTB Last administered on 06:43; Admin Dose 75 MCG; Start 12/28/16 at 06:00 Prednisone (Prednisone) 20 mg DAILY GTB Last administered on 01/04/17 10:00; Admin Dose 20 MG; Start 12/27/16 at 09:00 Zolpidem Tartrate (Ambien) 5 mg HS PRN PO INSOMNIA; Start 12/27/16 at 09:00 IV Flush (NS 10 ml) 10 ml PRN PRN IV IV PROTOCOL; Start 12/27/16 at 16:00 Metoprolol Tartrate (Lopressor) 100 mg BID GTB Last administered on 01/03/17 22:11; Admin Dose 100 MG; Start 12/30/16 at 09:00 Amlodipine Besylate (Norvasc) 10 mg DAILY GTB Last administered on 01/02/17 15 :38; Admin Dose 10 MG; Start 12/30/16 at 09:00; Status Future Hold Acetaminophen/ Hydrocodone Bitart ([place] (5/325)) 1 tab Q6H PO Last administered on 01/04/17 10:00; Admin Dose 1 TAB; Start 01/01/17 at 09:00 FANNY BLACK MD Jan 04, 2017 11:51
--- NOTE | 2017-01-04 12:18 | CONS ---
Date/Time of Note Date/Time of Note DATE: 01/04/17 TIME: 12:15 Assessment/Plan Assessment/Plan Additional Assessment/Plan Assessment recommendations; 1. Patient admitted to [facility] for continued treatment of respiratory failure however patient to ventriculostomy change and then had a brief cardiac arrest with accident revival. 2. History of glossal cancer status post tracheostomy. 3. Likely upper airway compromise. 4. 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 5. Patient been known to T-piece now. 6. Atrial fibrillation, with heart rate controlled. Continue current treatment. Patient can be transferred back to [facility] for continued treatment. I did have a detailed discussion the patient's at bedside and answered all his questions. Consultation Date/Type/Reason Admit Date/Time Dec 26, 2016 at 15:25 Initial Consult Date 12/26/16 Type of Consultation: Pulmonary/critical care Referring Provider: HILARY RUBIO MD 24 HR Interval Summary Free Text/Dictation Patient condition remains stable. She has been weaned down to T-piece. Has remained hemodynamically stable. General exam; elderly lady, currently in no distress, awake and alert. Exam/Review of Systems Vital Signs Vitals Vital Signs Date Time Temp Pulse Resp B/P Pulse Ox O2 Delivery O2 Flow Rate FiO2 01/04/17 09:00 88 17 105/54 99 T Tube 01/04/17 08:00 98.0 01/04/17 07:59 8.0 35 Intake and Output 01/03/17 01/03/17 01/04/17 15:00 23:00 07:00 Intake Total 500 ml 500 ml 600 ml Output Total 1780 ml 1300 ml 830 ml Balance -1280 ml -800 ml -230 ml Exam HEENT exam; supple neck, no JVD. No lymphadenopathy. Midline trachea. There is a well-healed scar involving the right lateral neck with very minimal soft tissue swelling which is nontender. The colostomy placed. Pupils are midsize reactive to light. Patient has fair dentition. Chest examination; clear to alteration bilaterally. S1-S2 audible, no murmurs. Regular rhythm. There is no soft cutaneous emphysema felt. Examination; soft, G-tube in place. Bowel sounds audible. Extremity examination; no peripheral edema. [employer] examination; no focal deficit. Results Result Diagram: 01/04/17 0650 01/04/17 0650 Results 24 hrs Laboratory Tests Test 01/03/17 13:34 01/04/17 06:50 Blood Gas Specimen Source Blood arterial Arterial Blood Date Drawn 01/03/2017 2:10:28 PM Arterial Blood pH (Temp corrected) 7.427 Arterial Blood pCO2 (Temp correct) 44.3 Arterial Blood pO2 (Temp corrected) 173.2 H Arterial Blood HCO3 28.5 H Arterial Blood Base Excess 3.6 H Arterial Blood Oxygen Saturation 98.9 H Jonn Test ACCEPTAB Arterial Blood Gas Puncture Site Right Radial Arterial Blood Carboxyhemoglobin 0.3 Arterial Blood Methemoglobin 0.5 Blood Gas A-a O2 Differential 61.1 H Oxyhemoglobin Percent 98.1 Total Hemoglobin 12.9 Blood Gas Temperature 37.0 Blood Gas Modality TRACH COLLAR FiO2 40.0 Blood Gas Notified Whom JLD Blood Gas Notified Time 01/03/2017 2:27:11 PM White Blood Count 12.8 H Red Blood Count 3.40 L Hemoglobin 10.3 L Hematocrit 31.9 L Mean Corpuscular Volume 93.8 Mean Corpuscular Hemoglobin 30.3 Mean Corpuscular Hemoglobin Concent 32.3 Red Cell Distribution Width 15.6 H Platelet Count 203 Mean Platelet Volume 10.8 H Neutrophils % 80.3 H Lymphocytes % 8.6 L Monocytes % 8.0 Eosinophils % 1.5 Basophils % 0.1 Nucleated Red Blood Cells % 0.0 Neutrophils # 10.3 H Lymphocytes # 1.1 Monocytes # 1.0 H Eosinophils # 0.2 Basophils # 0.0 Nucleated Red Blood Cells # 0.0 Sodium Level 138 Potassium Level 3.8 Chloride Level 98 Carbon Dioxide Level 35 H Anion Gap 9 Blood Urea Nitrogen 27 H Creatinine 0.69 Glucose Level 161 Calcium Level 8.2 L Phosphorus Level 3.5 Magnesium Level 2.3 Medications Medications Current Medications Ondansetron HCl (Zofran Inj) 4 mg Q6H PRN IV NAUSEA AND/OR VOMITING; Start at 16:00 Pantoprazole 40 mg 40 mg DAILY@06 IV Last administered on 01/04/17 06:40; Admin Dose 40 MG; Start 12/27/16 at 06:00 Propofol 100 ml @ 2.25 mls/hr Q12H IV Last administered on 01/02/17 03:23; Admin Dose 18 MLS/HR; Start 12/26/16 at 17:00 Norepinephrine/ Dextrose (Levophed/D5W) 500 ml @ 1.87 mls/hr TITRATE IV ; Start 12/26/16 at 20:30 Metoclopramide HCl (Reglan) 10 mg Q8 IV Last administered on 01/04/17 06:43; Admin Dose 10 MG; Start 12/27/16 at 06:00 Acetaminophen (Tylenol Liquid) 650 mg Q4H PRN GTB PAIN AND OR ELEVATED TEMP; Start 12/27/16 at 09:00 Acetazolamide (Diamox) 500 mg DAILY IV Last administered on 12/31/16 09:29; Admin Dose 500 MG; Start 12/27/16 at 11:00; Status Future Hold Atorvastatin Calcium (Lipitor) 40 mg HS GTB Last administered on 01/03/17 22: 12; Admin Dose 40 MG; Start 12/27/16 at 21:00 Citalopram Hydrobromide (Celexa) 40 mg DAILY GTB Last administered on 09:59; Admin Dose 40 MG; Start 12/27/16 at 09:00 Fluticasone Propionate (Flonase 0.05% Nasal) 2 spray BID NASAL Last administered on 01/04/17 10:01; Admin Dose 2 SPRAY; Start 12/27/16 at 11:00 Levothyroxine Sodium (Synthroid) 75 mcg DAILY@06 GTB Last administered on 06:43; Admin Dose 75 MCG; Start 12/28/16 at 06:00 Prednisone (Prednisone) 20 mg DAILY GTB Last administered on 01/04/17 10:00; Admin Dose 20 MG; Start 12/27/16 at 09:00 Zolpidem Tartrate (Ambien) 5 mg HS PRN PO INSOMNIA; Start 12/27/16 at 09:00 IV Flush (NS 10 ml) 10 ml PRN PRN IV IV PROTOCOL; Start 12/27/16 at 16:00 Metoprolol Tartrate (Lopressor) 100 mg BID GTB Last administered on 01/03/17 22:11; Admin Dose 100 MG; Start 12/30/16 at 09:00 Amlodipine Besylate (Norvasc) 10 mg DAILY GTB Last administered on 01/02/17 15 :38; Admin Dose 10 MG; Start 12/30/16 at 09:00; Status Future Hold Acetaminophen/ Hydrocodone Bitart ([place] (5/325)) 1 tab Q6H PO Last administered on 01/04/17 10:00; Admin Dose 1 TAB; Start 01/01/17 at 09:00 EMILIANO HICKS Jan 04, 2017 12:18
--- NOTE | 2017-01-04 12:33 | CONS ---
Date/Time of Note Date/Time of Note DATE: 01/04/17 TIME: 12:32 Assessment/Plan Assessment/Plan Additional Assessment/Plan IMPRESSION: 1. Pneumoperitoneum secondary to barotrauma from difficult intubation, no evidence of peritonitis, no abdominal pathology. 2. Status post G-tube for dysphagia. Change of G-tube was done in the ICU and patient is tolerating the feedings. 3. Bilateral pneumonia for which patient is on antibiotic. 4. s/p tracheostomy. 5. Anemia. 6. 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 7. 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 8. Ventilator-dependent respiratory failure. Plan continue present care Consultation Date/Type/Reason Admit Date/Time Dec 26, 2016 at 15:25 Initial Consult Date 12/26/16 Type of Consultation: Pulmonary/critical care Referring Provider: HILARY RUBIO MD 24 HR Interval Summary Constitutional: improved, no complaints Exam/Review of Systems Vital Signs Vitals Vital Signs Date Time Temp Pulse Resp B/P Pulse Ox O2 Delivery O2 Flow Rate FiO2 01/04/17 12:00 91 01/04/17 09:00 17 105/54 99 T Tube 01/04/17 08:00 98.0 01/04/17 07:59 8.0 35 Intake and Output 01/03/17 01/03/17 01/04/17 15:00 23:00 07:00 Intake Total 500 ml 500 ml 600 ml Output Total 1780 ml 1300 ml 830 ml Balance -1280 ml -800 ml -230 ml Exam Constitutional: alert, oriented, well developed Psych: nl mood/affect, no complaints Head: atraumatic, normocephalic Eyes: EOMI, PERRL, nl conjunctiva, nl lids, nl sclera ENMT: nl external ears & nose, nl lips & teeth, nl nasal mucosa & septum Neck: non-tender, supple Respiratory: clear to auscultation, normal air movement Cardiovascular: nl pulses, regular rate and rhythm Gastrointestinal: nl liver, spleen, non-tender, soft Musculoskeletal: nl extremities to inspection, nl gait and stance Extremities: normal pulses Neurological: INFANT NANNY II-XII intact, nl mental status, nl speech, nl strength Skin: nl turgor, No rash or lesions Lymph: nl lymph nodes Results Result Diagram: 01/04/17 0650 01/04/17 0650 Results 24 hrs Laboratory Tests Test 01/03/17 13:34 01/04/17 06:50 Blood Gas Specimen Source Blood arterial Arterial Blood Date Drawn 01/03/2017 2:10:28 PM Arterial Blood pH (Temp corrected) 7.427 Arterial Blood pCO2 (Temp correct) 44.3 Arterial Blood pO2 (Temp corrected) 173.2 H Arterial Blood HCO3 28.5 H Arterial Blood Base Excess 3.6 H Arterial Blood Oxygen Saturation 98.9 H Jonn Test ACCEPTAB Arterial Blood Gas Puncture Site Right Radial Arterial Blood Carboxyhemoglobin 0.3 Arterial Blood Methemoglobin 0.5 Blood Gas A-a O2 Differential 61.1 H Oxyhemoglobin Percent 98.1 Total Hemoglobin 12.9 Blood Gas Temperature 37.0 Blood Gas Modality TRACH COLLAR FiO2 40.0 Blood Gas Notified Whom JLD Blood Gas Notified Time 01/03/2017 2:27:11 PM White Blood Count 12.8 H Red Blood Count 3.40 L Hemoglobin 10.3 L Hematocrit 31.9 L Mean Corpuscular Volume 93.8 Mean Corpuscular Hemoglobin 30.3 Mean Corpuscular Hemoglobin Concent 32.3 Red Cell Distribution Width 15.6 H Platelet Count 203 Mean Platelet Volume 10.8 H Neutrophils % 80.3 H Lymphocytes % 8.6 L Monocytes % 8.0 Eosinophils % 1.5 Basophils % 0.1 Nucleated Red Blood Cells % 0.0 Neutrophils # 10.3 H Lymphocytes # 1.1 Monocytes # 1.0 H Eosinophils # 0.2 Basophils # 0.0 Nucleated Red Blood Cells # 0.0 Sodium Level 138 Potassium Level 3.8 Chloride Level 98 Carbon Dioxide Level 35 H Anion Gap 9 Blood Urea Nitrogen 27 H Creatinine 0.69 Glucose Level 161 Calcium Level 8.2 L Phosphorus Level 3.5 Magnesium Level 2.3 Medications Medications Current Medications Ondansetron HCl (Zofran Inj) 4 mg Q6H PRN IV NAUSEA AND/OR VOMITING; Start at 16:00 Pantoprazole 40 mg 40 mg DAILY@06 IV Last administered on 01/04/17 06:40; Admin Dose 40 MG; Start 12/27/16 at 06:00 Propofol 100 ml @ 2.25 mls/hr Q12H IV Last administered on 01/02/17 03:23; Admin Dose 18 MLS/HR; Start 12/26/16 at 17:00 Norepinephrine/ Dextrose (Levophed/D5W) 500 ml @ 1.87 mls/hr TITRATE IV ; Start 12/26/16 at 20:30 Metoclopramide HCl (Reglan) 10 mg Q8 IV Last administered on 01/04/17 06:43; Admin Dose 10 MG; Start 12/27/16 at 06:00 Acetaminophen (Tylenol Liquid) 650 mg Q4H PRN GTB PAIN AND OR ELEVATED TEMP; Start 12/27/16 at 09:00 Acetazolamide (Diamox) 500 mg DAILY IV Last administered on 12/31/16 09:29; Admin Dose 500 MG; Start 12/27/16 at 11:00; Status Future Hold Atorvastatin Calcium (Lipitor) 40 mg HS GTB Last administered on 01/03/17 22: 12; Admin Dose 40 MG; Start 12/27/16 at 21:00 Citalopram Hydrobromide (Celexa) 40 mg DAILY GTB Last administered on 09:59; Admin Dose 40 MG; Start 12/27/16 at 09:00 Fluticasone Propionate (Flonase 0.05% Nasal) 2 spray BID NASAL Last administered on 01/04/17 10:01; Admin Dose 2 SPRAY; Start 12/27/16 at 11:00 Levothyroxine Sodium (Synthroid) 75 mcg DAILY@06 GTB Last administered on 06:43; Admin Dose 75 MCG; Start 12/28/16 at 06:00 Prednisone (Prednisone) 20 mg DAILY GTB Last administered on 01/04/17 10:00; Admin Dose 20 MG; Start 12/27/16 at 09:00 Zolpidem Tartrate (Ambien) 5 mg HS PRN PO INSOMNIA; Start 12/27/16 at 09:00 IV Flush (NS 10 ml) 10 ml PRN PRN IV IV PROTOCOL; Start 12/27/16 at 16:00 Metoprolol Tartrate (Lopressor) 100 mg BID GTB Last administered on 01/03/17 22:11; Admin Dose 100 MG; Start 12/30/16 at 09:00 Amlodipine Besylate (Norvasc) 10 mg DAILY GTB Last administered on 01/02/17 15 :38; Admin Dose 10 MG; Start 12/30/16 at 09:00; Status Future Hold Acetaminophen/ Hydrocodone Bitart ([place] (5325)) 1 tab Q6H PO Last administered on 01/04/17 10:00; Admin Dose 1 TAB; Start 01/01/17 at 09:00 ALYSSA THOMPSON MD Jan 04, 2017 12:33
[2017-01-04] MEDS: LEVALBUTEROL (HFA) 15 GM INHALER INH SCH (12:42)
[2017-01-04] MEDS: IPRATROPIUM (HFA) 12.9 GM INHALER INH SCH (12:42)
--- NOTE | 2017-01-04 14:50 | PN ---
Date/Time of Note Date/Time of Note DATE: 01/04/17 TIME: 14:43 Assessment/Plan Lines/Catheters IV Catheter Type (from [facility]): PICC Line Latif in Place (from [facility]): Yes Assessment/Plan Chief Complaint/Hosp Course 1. Pneumoperitoneum 2nd difficult intubation. -no surgical issues at this point 2. Pneumomediastinum, pneumothorax, and subcutaneous emphysema, probably secondary to above process. Improved. Thoracic surgery following 3. Code arrest. Probably aspiration. Continue medical optimization and pulmonary support. Improved 4. History of oral cancer status post resection with possible recurrence. Will defer to ENT. No active bleeding at this time. 5. Anemia, multifactorial. Continue close monitoring and transfuse as needed. 6. Leukocytosis, possible multifactorial with adrenal insufficiency requiring steroids versus acute infectious process, and/or systemic inflammatory response syndrome. 7. History of atrial fibrillation, currently in sinus. 8. Dysphagia, status post percutaneous endoscopic gastrostomy on feedings, which are held. -tube feeds 9. History of hypertension. Continue medical optimization. Thank you Problems: Subjective 24 Hr Interval Summary Leukocytosis. No fever, chills, vomiting. No cough. No sz. No rash. No bloating. No pyuria. No blood per mouth, rectum, urine, or trach site. No color changes. Exam/Review of Systems Vital Signs Vitals Vital Signs Date Time Temp Pulse Resp B/P Pulse Ox O2 Delivery O2 Flow Rate FiO2 01/04/17 14:05 89 20 100 Aerosol 5.0 28 T Tube 01/04/17 14:00 121/69 01/04/17 12:00 98.4 Intake and Output 01/03/17 01/03/17 01/04/17 15:00 23:00 07:00 Intake Total 500 ml 500 ml 600 ml Output Total 1780 ml 1300 ml 830 ml Balance -1280 ml -800 ml -230 ml Exam Free Text/Dictation GENERAL: Ventilated. Noncommunicative. BMI of 30. HEENT: Pupils are sluggish. No scleral icterus. Mucous membranes are moist. NECK: Trach in place. Minimal crepitus. JVD not visible. PULMONARY: Normal effort. No wheezing. CARDIAC: S1, S2 present. ABDOMEN: Soft, nt. PEG in place. VASCULAR: Capillary refill is 2 seconds. NEUROLOGIC: Opens eyes and tracks. PSYCHIATRIC: Noncommunicative. SKIN: No rashes, no jaundice. Diffuse edema. LYMPHATICS: No inguinal or cervical lymph nodes. Results Result Diagram: 01/04/17 0650 01/04/17 0650 PATRICK QUINTERO MD Jan 04, 2017 14:50
--- NOTE | 2017-01-04 23:11 | CONS ---
Date/Time of Note Date/Time of Note DATE: 01/04/17 TIME: 12:10 Assessment/Plan Assessment/Plan Chief Complaint/Hosp Course ASSESSMENT AND PLAN: This is a 66-year-old female who presents with: Anemia n -cytic with increased RDW, WITH SIGNIFICANT DROP H/H DURING HOSPITALIZATION post 2 u PRBC + COMPONENT ACD HX ANEMIA of chronic disease. Continue to monitor hemoglobin and hematocrit levels. OBSERVE FOR BLEEDING AND HEMOLYSIS TRANSFUSE TO KEEP HB ABOVE 8 History of tongue cancer status post surgical resection. The possibility of recurrence at the outside hospital- NOT SEEN ON CURRENT EXAM POST revision tracheostomy ENT F-UP Leukocytosis. Etiology is likely multifactorial secondary to steroids, sepsis. Status post code arrest. Etiology may be secondary to aspiration, hypoxemia. The patient had spontaneous return of circulation. Ventilator dependent respiratory failure. The patient is status post intubation. Currently stable. ABG has been reviewed. Vent settings have been reviewed. We will continue to monitor. Follow up with Pulmonary. Acute tracheal bleed. Underlying etiology is unclear. The patient's tracheostomy was removed. ENT consult for further evaluation with Dr. Carpio and monitor closely. Sepsis secondary to likely aspiration pneumonia. We will continue current broad spectrum antibiotics. Follow up cultures. Follow up with Infectious Disease. History of adrenal insufficiency. post stress dose of hydrocortisone. Paroxysmal atrial fibrillation, currently in sinus rhythm. Continue to monitor. Continue medical management. Hypothyroidism. ON Synthroid. Hypertension. Blood pressure is currently normotensive. Continue to monitor. Dysphagia, status post PEG. History of volume overload, diastolic heart failure. History of critical care myopathy. Continue to monitor. Gastrointestinal and deep venous thrombosis prophylaxis. Continue proton pump inhibitor and sequential leg squeezers. Problems: Consultation Date/Type/Reason Admit Date/Time Dec 26, 2016 at 15:25 Initial Consult Date 12/29/16 Type of Consultation: [facility] Referring Provider: HILARY RUBIO MD 24 HR Interval Summary Free Text/Dictation Leukocytosis. No fever, chills, vomiting. No cough. No sz. No rash. No bloating. No pyuria. No blood per mouth, rectum, urine, or trach site. No color changes. Exam/Review of Systems Vital Signs Vitals Vital Signs Date Time Temp Pulse Resp B/P Pulse Ox O2 Delivery O2 Flow Rate FiO2 01/04/17 19:00 95 15 113/62 100 3/25/17 18:04 5.0 28 01/04/17 18:00 T Tube 01/04/17 16:00 98.4 Intake and Output 01/03/17 01/03/17 01/04/17 15:00 23:00 07:00 Intake Total 500 ml 500 ml 600 ml Output Total 1780 ml 1300 ml 830 ml Balance -1280 ml -800 ml -230 ml Exam Exam Free Text/Dictation GENERAL: Ventilated. Noncommunicative. BMI of 30. HEENT: Pupils are sluggish. No scleral icterus. Mucous membranes are moist. NECK: Trach in place. Minimal crepitus. JVD not visible. PULMONARY: Normal effort. No wheezing. CARDIAC: S1, S2 present. ABDOMEN: Soft, nt. PEG in place. VASCULAR: Capillary refill is 2 seconds. NEUROLOGIC: Opens eyes and tracks. PSYCHIATRIC: Noncommunicative. SKIN: No rashes, no jaundice. Diffuse edema. LYMPHATICS: No inguinal or cervical lymph nodes. Results Result Diagram: 01/04/17 0650 01/04/17 0650 Results 24 hrs Laboratory Tests Test 01/04/17 06:50 White Blood Count 12.8 H Red Blood Count 3.40 L Hemoglobin 10.3 L Hematocrit 31.9 L Mean Corpuscular Volume 93.8 Mean Corpuscular Hemoglobin 30.3 Mean Corpuscular Hemoglobin Concent 32.3 Red Cell Distribution Width 15.6 H Platelet Count 203 Mean Platelet Volume 10.8 H Neutrophils % 80.3 H Lymphocytes % 8.6 L Monocytes % 8.0 Eosinophils % 1.5 Basophils % 0.1 Nucleated Red Blood Cells % 0.0 Neutrophils # 10.3 H Lymphocytes # 1.1 Monocytes # 1.0 H Eosinophils # 0.2 Basophils # 0.0 Nucleated Red Blood Cells # 0.0 Sodium Level 138 Potassium Level 3.8 Chloride Level 98 Carbon Dioxide Level 35 H Anion Gap 9 Blood Urea Nitrogen 27 H Creatinine 0.69 Glucose Level 161 Calcium Level 8.2 L Phosphorus Level 3.5 Magnesium Level 2.3 FREDERICK DAIGLE MD Jan 04, 2017 23:11
== END 2017-01-04 20:05 | DRG 853 ==
LOC: ICU 15:25
PROVIDERS: ADMIT Internal Medicine; ATTEND Internal Medicine
PROC: 5A1955Z Respiratory Ventilation, Greater than 96 Consecutive Hours (ICD-10-PCS; 2016-12-26)
PROC: 02HV33Z Insertion of Infusion Device into Superior Vena Cava, Percutaneous Approach (ICD-10-PCS; principal; 2016-12-27)
PROC: 0D20XUZ Change Feeding Device in Upper Intestinal Tract, External Approach (ICD-10-PCS; 2016-12-27)
PROC: 0WQ6XZ2 Repair Neck, Stoma, External Approach (ICD-10-PCS; 2017-01-02)
DX: A41.9 Sepsis, unspecified organism (principal); J96.21 Acute and chronic respiratory failure with hypoxia; I46.9 Cardiac arrest, cause unspecified; J69.0 Pneumonitis due to inhalation of food and vomit; G72.81 Critical illness myopathy; G93.40 Encephalopathy, unspecified; I50.31 Acute diastolic (congestive) heart failure; K94.23 Gastrostomy malfunction; I50.33 Acute on chronic diastolic (congestive) heart failure; J95.01 Hemorrhage from tracheostomy stoma; E27.40 Unspecified adrenocortical insufficiency; N39.0 Urinary tract infection, site not specified; Z99.11 Dependence on respirator [ventilator] status; J95.811 Postprocedural pneumothorax; I48.0 Paroxysmal atrial fibrillation; D63.8 Anemia in other chronic diseases classified elsewhere; E03.9 Hypothyroidism, unspecified; E78.5 Hyperlipidemia, unspecified; I11.0 Hypertensive heart disease with heart failure; J44.9 Chronic obstructive pulmonary disease, unspecified; E87.6 Hypokalemia; K66.8 Other specified disorders of peritoneum; T81.82XA Emphysema (subcutaneous) resulting from a procedure, initial encounter; Z85.810 Personal history of malignant neoplasm of tongue; Y84.8 Other medical procedures as the cause of abnormal reaction of the patient, or of later complication, without mention of misadventure at the time of the procedure; Y92.89 Other specified places as the place of occurrence of the external cause; B95.2 Enterococcus as the cause of diseases classified elsewhere
CPT/HCPCS: 36430; 36569; 36600; 70491; 71010; 71260; 74177; 76937; 80048; 80053; 80202; 81001; 81003; 82043; 82306; 82728; 82746; 82803; 83540; 83605; 83615; 83735; 84100; 84155; 84300; 84443; 84560; 85025; 85045; 85610; 85651; 85730; 86644; 86850; 86900; 86901; 86920; 87040; 87081; 93005; 94002; 94003; 94640; 94664; 94770; J1120; J1940; C9113; J1450; J1720; J2185; J2765; J3010; J3370; J3475; J7030; J7040; J7050; J7512; P9016; Q9967

== ENCOUNTER → 2017-02-12 | Outpatient (CLI) | payer MEDICARE, BC ==
--- NOTE | 2017-02-12 16:14 | RADRPT ---
PROCEDURE: Video-fluoroscopy swallowing study. CLINICAL INDICATION: Dysphagia. TECHNIQUE: Fluoroscopic guided video swallowing study was done in conjunction with the speech ther apist. The study was confined to the oral, pharyngeal, and cervical phases of the swallowing mechani sm. 0.9 minutes of fluoroscopy time was used. COMPARISON: No prior study is available for comparison. FINDINGS: There is silent aspiration with nectar-thick by spoon. There is severely decreased laryngeal elevat ion. There is no bolus clearance to the esophagus. A large amount of material is aspirated every t steffen the patient swallows. IMPRESSION: 1. Grossly abnormal study with extensive silent aspiration. 2. Please refer to the speech therapist's recommendations for future feedings. RPTAT: QQ .Guero Guadalupe MD, Date Time Electronically viewed and signed by .Guero Guadalupe MD, on 02/12/2017 16:13 .R/
== END | disposition home or self-care (01) ==
LOC: RAD 12:40
PROVIDERS: ATTEND Internal Medicine
DX: R13.12 Dysphagia, oropharyngeal phase (principal)
CPT/HCPCS: 74230; 92611; G8996; G8997; G8998

== ENCOUNTER 2017-03-01 08:57 | Inpatient (IN) | payer MEDICARE, BC ==
[2017-03-01] VITALS (7 sets, daily range): BP systolic 96–119; BP diastolic 53–85; PULSE 78–90; RESP 15–20; TEMP 100.1; Ht 167.6 cm; Wt 51.8 kg
[~2017-03-01] VITALS: Ht 167.6 cm; Wt 51.8 kg
--- NOTE | 2017-03-01 09:11 | ERA ---
ER Documentation Chief Complaint Date/Time DATE: 03/01/17 TIME: 09:10 Chief Complaint FROM SNF TRACH TO O2. EVAL OF LOW O2 HPI 66-year-old woman brought in by EMS from intermediate for fever and low oxygen saturation. Patient has multiple medical conditions but denies chest pain or shortness of breath. She has had some previous suprapubic discomfort, no blood per rectum or melena, no vomiting or diarrhea. HPI limited although supplemented by reviewing previous medical records, intermediate records, speaking to EMS, and nursing staff. ROS All systems reviewed and are negative except as per history of present illness. Medications Home Meds Reported Medications Miscellaneous* PUMP (Miscellaneous* PUMP) 1 Each Pump.resvr, 1 NEB ATROVENT 0.02 % Q2H Y for SHORTNESS OF BREATH, EA 03/01/17 Lidocaine (Lidoderm) 1 Each Adh..patch, 1 PATCH TP Q12 03/01/17 Atorvastatin* (Atorvastatin*) 40 Mg Tablet, 40 MG G-TUBE QHS, #30 TAB 03/01/17 Acetaminophen* (Acetaminophen*) 650 Mg Tablet, 650 MG G-TUBE Q6H Y for PAIN AND OR ELEVATED TEMP, #30 TAB 03/01/17 Acetaminophen* (Acetaminophen*) 650 Mg Tablet, 650 MG PO Q6H Y for PAIN AND OR ELEVATED TEMP, #30 TAB 03/01/17 Zolpidem Tartrate* (Ambien*) 5 Mg Tablet, 5 MG G-TUBE QHS Y for INSOMNIA, #30 TAB 03/01/17 Prednisone* (Prednisone*) 10 Mg Tab, 10 MG G-TUBE DAILY, TAB 03/01/17 Pantoprazole Sodium (Protonix) 40 Mg Granpkt.dr, 40 MG G-TUBE DAILY 03/01/17 Hydrocodone/Acetaminophen ([place] 5-325 Tablet) 1 Each Tablet, 1 TAB PO Q6H Y for PAIN LEVEL 6-10, TAB 03/01/17 Multivitamin-Min/Iron/FA/Vit K (Multi-Day Plus Minerals Tablet) 1 Each Tablet, 1 TAB G-TUBE DAILY, TAB 03/01/17 Metoprolol Tartrate* (Lopressor*) 100 Mg Tablet, 100 MG G-TUBE BID, #60 TAB 03/01/17 Lactobacillus Acidophilus* (Lactinex*) 1 Tab Chew, 1 TAB G-TUBE BID, TAB 03/01/17 Levothyroxine Sodium* (Levothyroxine Sodium*) 75 Mcg Tablet, 75 MCG G-TUBE BEFORE BREAKFAST, #30 TAB 03/01/17 Levalbuterol* (Xopenex*) 0.63 Mg/3 Ml Nebu, 1.25 MG HHN Q6H Y for WHEEZING AND SOB, EA 03/01/17 Fluticasone Propionate* (Fluticasone Propionate* Nasal) 50 Mcg/Guthrie - 16 Gm Guthrie.susp, 1 SPRAY NASAL BID, #1 BOTTLE TO EACH NOSTRIL 03/01/17 Acetazolamide* (Acetazolamide*) 250 Mg Tablet, 250 MG G-TUBE BID, #60 TAB 03/01/17 Citalopram Hydrobromide* (Citalopram Hydrobromide*) 20 Mg Tablet, 20 MG G-TUBE DAILY, #30 TAB 03/01/17 Allergies Allergies: Coded Allergies: oxycodone (Verified Allergy, Unknown, 01/03/17) povidone-iodine (Verified Allergy, Unknown, 01/03/17) promethazine (Verified Allergy, Unknown, 01/03/17) soap (Verified Allergy, Unknown, 01/03/17) PMhx/Soc Status post cardiac arrest, ventilator dependent respiratory failure with a tracheostomy tube currently breathing spontaneously, previous pneumothorax, anemia, adrenal insufficiency, paroxysmal atrial fibrillation, hypothyroidism, hypertension, dysphagia, congestive heart failure Anesthesia Reaction: No Hx Neurological Disorder: No Hx Respiratory Disorders: Yes (TRACH PATIENT, RESP. FAILURE.) Hx Cardiac Disorders: Yes (HX: HTN & AFIB) Hx Psychiatric Problems: No Hx Miscellaneous Medical Probl: Yes (A-FIB, ASP. PNEUMONIA) Smoking Status: Never smoker FmHx Family History: diabetes Physical Exam Vitals Vital Signs Date Time Temp Pulse Resp B/P Pulse Ox O2 Delivery O2 Flow Rate FiO2 03/01/17 10:48 89 24 97/56 99 Trach Collar 6.0 03/01/17 10:21 92 26 84/57 100 Trach Collar 6.0 03/01/17 09:15 6 03/01/17 09:11 100.1 94 17 91/57 99 Trach Collar 6.0 03/01/17 09:08 100.1 94 20 91/52 85 Physical Exam GENERAL: Elderly, chronically debilitated woman, febrile, tracheostomy in place HEENT: Dry mucous membranes, tracheostomy, pink conjunctiva, no cervical spine deformity NEURO: Alert and oriented 3, cranial nerves II through XII intact bilaterally, pupils equal round reactive to light, she has bilateral lower extremity paresis , sensation intact bilaterally CARDIAC: Regular rate and rhythm, no murmurs rubs or gallops LUNGS: Poor breath sounds, no crackles or stridor ABDOMEN: Soft nontender, no guarding, no rigidity, no rebound, no psoas sign no obturator sign. Normoactive bowel sounds SKIN: Warm and dry to touch, no abrasions, contusions, or hematomas, no lacerations, no ecchymosis, no target lesions, and without ulcers EXTREMITIES: No clubbing cyanosis or edema, calves are bilaterally symmetrical, no Homans sign, no popliteal cord sign. Distal pulses equal and bilateral PSYCH: Normal affect without agitation or irritability Result Diagram: 03/01/17 0947 03/01/17 0947 Results 24 hrs Laboratory Tests Test 03/01/17 09:47 White Blood Count 33.610^3/ul Red Blood Count 2.9410^6/ul Hemoglobin 9.3g/dl Hematocrit 30.0% Mean Corpuscular Volume 102.0fl Mean Corpuscular Hemoglobin 31.6pg Mean Corpuscular Hemoglobin Concent 31.0g/dl Red Cell Distribution Width 15.8% Platelet Count 72526^3/UL Mean Platelet Volume 9.9fl Neutrophils % 80.0% Band Neutrophils % 13.0% Lymphocytes % 2.0% Monocytes % 3.0% Metamyelocytes % 1.0% Myelocytes % 1.0% Neutrophils # 26.910^3/ul Lymphocytes # 0.710^3/ul Monocytes # 1.010^3/ul Metamyelocytes # 0.3 Myelocytes # 0.3 Macrocytosis 1+ Prothrombin Time 14.1Sec Prothrombin Time Ratio 1.1 INR International Normalized Ratio 1.09 Activated Partial Thromboplast Time 27.8Sec Sodium Level 137mmol/L Potassium Level 3.6mmol/L Chloride Level 99mmol/L Carbon Dioxide Level 27mmol/L Anion Gap 15 Blood Urea Nitrogen 32mg/dl Creatinine 0.80mg/dl Glucose Level 186mg/dl Lactic Acid Level 1.6mmol/L Calcium Level 8.9mg/dl Total Bilirubin 0.1mg/dl Direct Bilirubin 0.00mg/dl Indirect Bilirubin 0.1mg/dl Aspartate Amino Transf (AST/SGOT) 17IU/L Alanine Aminotransferase (ALT/SGPT) 29IU/L Alkaline Phosphatase 71IU/L Troponin I < 0.012ng/ml Total Protein 6.6g/dl Albumin 3.2g/dl Globulin 3.40g/dl Albumin/Globulin Ratio 0.94 Lipase 52U/L Current Medications Medications (Trade) Dose Ordered Sig/Mitch Route PRN Reason Start Time Stop Time Status Last Admin Dose Admin Sodium Chloride (NS) 2,330 ml BOLUS OVER 2 HOURS STAT IV* 03/01/17 09:12 03/01/17 09:14 DC 03/01/17 10:08 Ibuprofen 600 mg 600 mg ONCE ONCE PO 03/01/17 09:30 03/01/17 09:31 DC 03/01/17 09:30 Cefepime HCl (Maxipime 1gm/50 ml (Pmx)) 50 ml @ 100 mls/hr ONCE ONCE IVPB 03/01/17 09:30 03/01/17 09:59 DC 03/01/17 10:09 Hydrocortisone (Solu-Cortef) 100 mg ONCE ONCE IV 03/01/17 10:30 03/01/17 10:31 DC 03/01/17 10:44 Procedures/MDM IV line was established patient was placed on cardiac cath lab manager rhythm strip revealed a sinus rhythm at about 80 bpm with upright P and T waves. Patient was febrile. Blood and urine cultures have been ordered results are pending I will follow-up. EKG performed, read by me revealed a normal sinus rhythm at 83 bpm, normal axis , multiple PVCs, narrow QRS complex, no concerning ST elevations or depressions noted. One view chest x-ray performed, read by me there is congestion bilaterally although no acute infiltrates, no pneumothorax. Tracheostomy is in place. I administered over 2 L normal saline intravenously for dehydration and initial hypotension as well as ibuprofen 600 mg p.o. For hypotension and history of adrenal suppression patient also received hydrocortisone 100 mg IV 1. CBC revealed a leukocytosis of 34 although this may be secondary to chronic glucocorticoid use, electrolytes revealed dehydration with a BUN/creatinine of 32/0.8, liver function tests are normal, troponin was negative. Urine analysis was unremarkable although urine cultures are pending I will follow-up. I administered ceftriaxone 1 g IV. Initial and second lactic acid levels were both under 2 I do not suspect sepsis. Patient will be admitted to telemetry setting for continued medical management and possible bronchodilator therapy if indicated. CT scan of the abdomen pelvis is also been ordered by me results are pending I will follow-up. Departure Diagnosis: Primary Impression: Acute and chronic respiratory failure Additional Impressions: Acute bronchitis Qualified Code: J20.9 - Acute bronchitis, unspecified organism Dehydration Hypotension Qualified Code: I95.9 - Hypotension, unspecified hypotension type Leukocytosis Qualified Code: D72.820 - Lymphocytosis Adrenal suppression Condition: Fair NEISHA MCNAMARA MD March 01, 2017 09:11
[2017-03-01] MEDS ORDERED: SODIUM CHLORIDE 0.9% 1L BAG IV* STA (09:12)
[2017-03-01] MEDS ORDERED: CEFEPIME 1GM/50 ML (PMX) 50 ML IVPB ONE (09:30)
[2017-03-01] MEDS ORDERED: IBUPROFEN 600 MG TAB PO ONE (09:30)
[2017-03-01 10:04] LABS: ADD SCAN DIFF NO
[2017-03-01 10:09] LABS: ABNORMAL IP MESSAGE 1; HEMOGLOBIN 9.3 g/dl (12.0-16.0); MEAN CORPUSCULAR HEMOGLOBIN 31.6 pg (29.0-33.0); MEAN PLATELET VOLUME 9.9 fl (7.4-10.4); PLATELET COUNT 405 10^3/UL (140-415); RED BLOOD COUNT 2.94 10^6/ul (4.20-5.40); RED CELL DISTRIBUTION WIDTH 15.8 % (11.5-14.5); WHITE BLOOD COUNT 33.6 10^3/ul (4.8-10.8)
[2017-03-01 10:24] LABS: ALBUMIN 3.2 g/dl (3.3-4.9); CHLORIDE 99 mmol/L (97-110); POTASSIUM 3.6 mmol/L (3.5-5.1); SODIUM 137 mmol/L (135-144)
[2017-03-01 10:27] LABS: ALANINE AMINOTRANSFERASE 29 IU/L (13-69); ALBUMIN/GLOBULIN RATIO 0.94; ALKALINE PHOSPHATASE 71 IU/L (42-121); ANION GAP 15 (8-16); ASPARTATE AMINO TRANSFERASE 17 IU/L (15-46); BILIRUBIN,INDIRECT 0.1 mg/dl (0-1.1); BILIRUBIN,TOTAL 0.1 mg/dl (0.2-1.3); BLOOD UREA NITROGEN 32 mg/dl (7-20); CALCIUM 8.9 mg/dl (8.4-10.2); CARBON DIOXIDE 27 mmol/L (21-31); GLUCOSE 186 mg/dl (70-220); TOTAL PROTEIN 6.6 g/dl (6.1-8.1)
[2017-03-01 10:30] LABS: INR 1.09; PROTIME 14.1 Sec (12.2-14.2); PT RATIO 1.1
[2017-03-01] MEDS ORDERED: HYDROCORTISONE 100 MG INJ IV ONE (10:30)
[2017-03-01 10:31] LABS: PARTIAL THROMBOPLASTIN TIME 27.8 Sec (25.0-35.0)
--- NOTE | 2017-03-01 10:32 | RADRPT ---
PROCEDURE: XR Chest. CLINICAL INDICATION: Possible sepsis TECHNIQUE: Single AP portable chest COMPARISON: 01/12/2017 Chest x-ray FINDINGS: The cardiac silhouette is mildly enlarged is stable in size. Tracheostomy tube and stable position. Atherosclerotic calcification of the aorta. Prominent interstitial lung and markings without foca l consolidation or pleural effusion which may reflect mild vascular congestion. No pneumothorax. The osseous structures and soft tissues are unremarkable. IMPRESSION: 1. Cardiomegaly. Prominence of the vascular and interstitial markings suggestive of mild congestion . 2. No focal consolidation or pleural effusion. RPTAT:AAJJ Physician Flako Date Time Electronically viewed and signed by Physician Flako on 03/01/2017 10:31 ANITA/
[2017-03-01 10:52] LABS: TROPONIN-I < 0.012 ng/ml (0.00-0.12)
[2017-03-01] MEDS ORDERED: LEVA0.6312 HHN (11:08)
[2017-03-01] MEDS ORDERED: HYDR-906 PO (11:08)
[2017-03-01] MEDS ORDERED: CITA20TA6 G-TUBE (11:08)
[2017-03-01] MEDS ORDERED: ZOLP5TAB G-TUBE (11:08)
[2017-03-01] MEDS ORDERED: METO-407 G-TUBE (11:08)
[2017-03-01] MEDS ORDERED: FLUT16SP17 NASAL (11:08)
[2017-03-01] MEDS ORDERED: ACET250T22 G-TUBE (11:08)
[2017-03-01] MEDS ORDERED: MULT-886 G-TUBE (11:08)
[2017-03-01] MEDS ORDERED: ATOR40TA68 G-TUBE (11:08)
[2017-03-01] MEDS ORDERED: PANT40SU G-TUBE (11:08)
[2017-03-01] MEDS ORDERED: LACTINEX G-TUBE (11:08)
[2017-03-01] MEDS ORDERED: PRED10TA G-TUBE (11:08)
[2017-03-01] MEDS ORDERED: LEVO75TA5 G-TUBE (11:08)
[2017-03-01] MEDS ORDERED: ACET-2047 PO (11:08)
[2017-03-01] MEDS ORDERED: ACET-2047 G-TUBE (11:08)
[2017-03-01 11:12] LABS: LYMPHOCYTES # 0.7 10^3/ul (0.8-2.9); MYELOCYTES # 0.3; NEUTROPHIL # 26.9 10^3/ul (1.6-7.5)
[2017-03-01 12:00] LABS: ADD UMIC YES; URINE BILIRUBIN (Dip) NEGATIVE (NEGATIVE); URINE BLOOD (Dip) NEGATIVE (NEGATIVE); URINE COLOR LT. YELLOW (YELLOW); URINE GLUCOSE (Dip) NEGATIVE (NEGATIVE); URINE KETONES (Dip) NEGATIVE (NEGATIVE); URINE LEUKOCYTE ESTERASE (Dip) NEGATIVE (NEGATIVE); URINE NITRITE (Dip) NEGATIVE (NEGATIVE); URINE TOTAL PROTEIN (Dip) TRACE (NEGATIVE); URINE UROBILINOGEN (Dip) 0.2 E.U./dL (0.1-1.0)
[2017-03-01] MEDS ORDERED: LIDO700A6 TP (12:08)
[2017-03-01] MEDS ORDERED: PUMP MISCELLANEOUS NEB (12:16)
[2017-03-01 12:17] LABS: URINE RBCS NONE SEEN /HPF (0)
[2017-03-01] MEDS ORDERED: NACL 0.9% 3 ML SYG IV SCH (16:00)
[2017-03-01] MEDS ORDERED: MAGNESIUM HYDROXIDE 30ML CUP PO PRN (16:00)
[2017-03-01] MEDS ORDERED: BISACODYL 10 MG SUPP PR PRN (16:00)
[2017-03-01] MEDS ORDERED: LEVALBUTEROL (NEB) 0.63 MG/3 ML AMP HHN PRN (16:00)
[2017-03-01] MEDS ORDERED: GLUCAGON 1 MG INJ IM PRN (16:00)
[2017-03-01] MEDS ORDERED: GLUCOSE GEL 15 GRAM TUBE PO PRN ×2 (16:00)
[2017-03-01] MEDS ORDERED: DOCUSATE SODIUM 100 MG CAP PO PRN (16:00)
[2017-03-01] MEDS ORDERED: DEXTROSE 50% 50 ML SYRINGE IV PRN ×2 (16:00)
[2017-03-01] MEDS ORDERED: ONDANSETRON 4 MG INJ IV PRN (16:00)
[2017-03-01] MEDS ORDERED: ZOLPIDEM 5 MG TAB PO PRN (16:00)
[2017-03-01] MEDS ORDERED: ACETAMINOPHEN 325 MG TAB PO PRN ×2 (16:00)
[2017-03-01] MEDS ORDERED: GLUCOSE GEL 15 GRAM TUBE BUCCAL PRN (16:00)
[2017-03-01] MEDS: SOD CHLORIDE 0.9% 1,000 ML IV SCH (17:14)
[2017-03-01] MEDS ORDERED: INSULIN ASPART [NOVOLOG] 3 ML PEN SC SCH (17:55)
--- NOTE | 2017-03-01 19:55 | RADRPT ---
PROCEDURE: CT Abdomen and Pelvis without contrast. CLINICAL INDICATION: Abdominal pain TECHNIQUE: CT of the abdomen and pelvis was performed on a multi-detector scanner without IV contr ast. Coronal and sagittal images were reformatted from the axial data set. One or more of the foll owing dose reduction techniques were used: automated exposure control, adjustment of the mA and/or kV according to patient size, use of iterative reconstruction technique. CTDI = 4.62 mGy. DLP = 240 .06 mGy-cm. COMPARISON: CT, 12/29/2016 FINDINGS: CT abdomen: Patchy bibasilar pulmonary tree in bud opacity and consolidation is seen, concerning for bronchiolit is/bronchopneumonia. The heart size is normal, without pericardial effusion. Cholelithiasis is see n without evidence for cholecystitis. Liver, biliary tree, pancreas, spleen, adrenal glands and kid neys are unremarkable. No urolithiasis or obstructive uropathy is identified. Gastrostomy tube tip is within the stomach. The aorta is of normal caliber. Aortic vascular calcifications are present. There is no retroperit araya lymphadenopathy. The megha hepatis region is clear. CT pelvis: No bowel obstruction, free intraperitoneal air or abscess is identified. There is mild diffuse colo filemon wall thickening, concerning for mild diffuse colitis. No diverticulosis, diverticulitis or appe ndicitis is identified. Urinary bladder, uterus and adnexa are grossly unremarkable. Trace amount of pelvic free fluid is present, likely reactive. No pelvic mass or lymphadenopathy is seen. The surrounding osseous structures are remarkable for degenerative spondylosis of the spine. No ost eolytic or osteoblastic lesion is detected. IMPRESSION: 1. Findings concerning for bibasilar bronchiolitis/bronchopneumonia, as above. 2. There is mild diffuse colonic wall thickening, suggestive of mild diffuse colitis. 3. Cholelithiasis is seen without evidence for cholecystitis. 4. Gastrostomy tube tip is within the stomach. 5. No urolithiasis or obstructive uropathy is identified. 6. Aortoiliac atherosclerotic calcifications are present. RPTAT: QQ .Hubert Munson MD, MD Date Time Electronically viewed and signed by .Hubert Munson MD, MD on 03/01/2017 19:54 .R/
[2017-03-01] MEDS ORDERED: HYDROCODONE/APAP (5/325) TAB PO SCH (20:00)
[2017-03-01] MEDS ORDERED: MAGNESIUM HYDROXIDE 30ML CUP GTB PRN (20:30)
[2017-03-01] MEDS: FLUTICASONE 0.05% 16 GM NAS SPRAY NASAL SCH (20:48)
[2017-03-01] MEDS: ACETAZOLAMIDE 250 MG TAB GTB SCH (20:48)
[2017-03-01] MEDS: HYDROCODONE/APAP (5/325) TAB GTB SCH (20:48)
[2017-03-01] MEDS: ATORVASTATIN 40 MG TAB GTB SCH (20:48)
[2017-03-01] MEDS: METOPROLOL 100 MG TAB GTB SCH (20:57)
[2017-03-01] MEDS: L ACIDOPHIL/B LACTIS/B LONGUM CAPSULE PEG SCH (20:57)
[2017-03-01] MEDS: HEPARIN 5,000 UNIT/0.5 ML VIAL SC SCH (20:59)
[2017-03-01] MEDS ORDERED: ATORVASTATIN 40 MG TAB PO SCH (21:00)
[2017-03-01] MEDS ORDERED: ACETAZOLAMIDE 250 MG TAB PO SCH (21:00)
[2017-03-01] MEDS ORDERED: METOPROLOL 100 MG TAB PO SCH (21:00)
[2017-03-01] MEDS ORDERED: L ACIDOPHIL/B LACTIS/B LONGUM CAPSULE PO SCH (21:00)
[2017-03-01] MEDS ORDERED: NON-FORMULARY/PATIENT OWN MED (Lactobacillus Acidophilus* (Lactinex*) 1 TAB) G-TUBE SCH (21:00)
[2017-03-01] MEDS ORDERED: ACETAMINOPHEN 325 MG TAB GTB PRN (22:00)
[2017-03-02] VITALS (12 sets, daily range): BP systolic 90–140; BP diastolic 50–68; PULSE 80–93; RESP 15–20
[2017-03-02] MEDS ORDERED: INSULIN ASPART [NOVOLOG] 3 ML PEN SC SCH
[2017-03-02] MEDS ORDERED: HYDROCODONE/APAP (5/325) TAB GTB SCH (02:00)
[2017-03-02] MEDS ORDERED: ACCU-CHEK XX SCH (02:00)
[2017-03-02] MEDS: HYDROCODONE/APAP (5/325) TAB GTB SCH ×4 (02:30→20:54)
[2017-03-02] MEDS: Insulin NOVOLOG SS MILD Algorithm (NPO/TPN/ENTERAL FEEDS) SC SCH ×4 (06:00→17:44)
[2017-03-02] MEDS: SOD CHLORIDE 0.9% 1,000 ML IV SCH ×3 (06:33→21:25)
[2017-03-02] MEDS: LANSOPRAZOLE 30 MG CAP GTB SCH (06:34)
[2017-03-02] MEDS: LEVOTHYROXINE 75 MCG TAB GTB SCH (06:34)
[2017-03-02 06:59] LABS: ALBUMIN 2.7 g/dl (3.3-4.9); ALBUMIN/GLOBULIN RATIO 0.96; CALCIUM 8.8 mg/dl (8.4-10.2); CHOL/HDL RATIO 3.1 RATIO; CREATININE 0.58 mg/dl (0.44-1.00); TOTAL PROTEIN 5.5 g/dl (6.1-8.1)
[2017-03-02] MEDS ORDERED: LEVOTHYROXINE 75 MCG TAB PO SCH (07:00)
[2017-03-02 07:09] LABS: T3 UPTAKE 44.5 % (23.5-40.5)
[2017-03-02 07:23] LABS: THYROID STIMULATING HORMONE 0.631 MIU/L (0.465-4.680)
[2017-03-02] MEDS ORDERED: VIT K G-TUBE SCH (09:00)
[2017-03-02] MEDS ORDERED: IRON G-TUBE SCH (09:00)
[2017-03-02] MEDS ORDERED: NON-FORMULARY/PATIENT OWN MED (Pantoprazole Sodium (Protonix) 40 MG) G-TUBE SCH (09:00)
[2017-03-02] MEDS ORDERED: CITALOPRAM 20 MG TAB PO SCH (09:00)
[2017-03-02] MEDS ORDERED: [UNRECOGNIZED DRUG - OTHER] G-TUBE SCH (09:00)
[2017-03-02] MEDS ORDERED: predniSONE 10 MG TAB PO SCH (09:00)
[2017-03-02] MEDS ORDERED: MULTIVITAMIN MIN G-TUBE SCH (09:00)
[2017-03-02] MEDS ORDERED: predniSONE 10 MG TAB GTB SCH (09:00)
--- NOTE | 2017-03-02 09:56 | CONS ---
Date/Time of Note Date/Time of Note DATE: 03/02/17 TIME: 09:46 Consult Date/Type/Reason Admit Date/Time March 01, 2017 at 10:51 Initial Consult Date Subjective This is a 66-year-old female with a past medical history of tongue cancer diagnosed 10 years ago status post resection and reconstruction surgery, history of hypertension, history of dysphagia status post PEG who initially presented to an outside hospital in September for shortness of breath. The patient had a prolonged hospital course that was complicated with respiratory failure, intubation, extubation, and reintubation. The patient was eventually trached. The patient also developed acute kidney injury during the hospital course felt to be secondary to aminoglycosides. She was dialyzed for a total of 8 sessions. The patient was also septic due to pseudomonas pneumonia and was treated with IV antibiotics and completed her antibiotic course. The patient, during that hospital workup, also developed recurrent nose bleeding, and given her previous history of oral cancer, tongue cancer, a CT scan and MRI were performed which apparently showed concerns for possible recurrence of mass. The patient was not able to be seen by ENT at outside hospital. The patient was eventually stabilized and transferred to [facility]. While at [facility], the patient was clinically stable and was continuing her respiratory care. The patient had an evaluation of her trach. Following the evaluation, the patient developed bleeding from the trach site and apparently aspirated and underwent an arrest. The patient was coded for approximately 14 minutes. The patient was subsequently intubated and transferred to the intensive care unit at [facility]. Eventually stabilized and transferred to [facility]. Transferred to [facility] after noting fevers and hypoxemic resp failure. Given dose of cefipime in er. now more awake and alert and afebrile. Tolerating meds and therapies. POC reviewed with dr. gandhi. PAST MEDICAL HISTORY: As stated above, history of head and neck oral cancer status post surgical resection, history of chronic dysphagia status post PEG, history of hypothyroidism, history of hypertension, history of adrenal insufficiency, history of acute kidney injury status post hemodialysis, history of atrial fibrillation. HEENT: Head is normocephalic. NECK: Shows dressing over tracheostomy site which is clean, dry, intact. HEART: Regular rate. LUNGS: Show diminished breath sounds at base. Positive rhonchi. ABDOMEN: Soft, nontender to palpation. Positive PEG. EXTREMITIES: Negative for clubbing, cyanosis, no edema. DERMATOLOGIC: No rashes. MUSCULOSKELETAL: No joint effusion. CHEST: The patient has noted crepitus. NEUROLOGIC: Limited exam as the patient is sedated Objective Vital Signs Date Time Temp Pulse Resp B/P Pulse Ox O2 Delivery O2 Flow Rate FiO2 03/02/17 08:26 93 03/02/17 08:11 97.3 20 140/68 93 03/02/17 05:52 5.0 28 03/02/17 05:02 Aerosol T Tube Intake and Output 03/01/17 03/01/17 03/02/17 15:00 23:00 07:00 Intake Total 1850 ml Balance 1850 ml Results/Medications Result Diagram: 03/01/17 0947 03/02/17 0535 Results 24 hrs Laboratory Tests Test 03/01/17 09:47 03/01/17 11:16 03/01/17 11:35 03/01/17 14:00 White Blood Count 33.6 #H Red Blood Count 2.94 L Hemoglobin 9.3 L Hematocrit 30.0 L Mean Corpuscular Volume 102.0 H Mean Corpuscular Hemoglobin 31.6 Mean Corpuscular Hemoglobin Concent 31.0 L Red Cell Distribution Width 15.8 H Platelet Count 405 Mean Platelet Volume 9.9 Neutrophils % 80.0 H Band Neutrophils % 13.0 H Lymphocytes % 2.0 L Monocytes % 3.0 Metamyelocytes % 1.0 H Myelocytes % 1.0 H Neutrophils # 26.9 H Lymphocytes # 0.7 L Monocytes # 1.0 H Metamyelocytes # 0.3 Myelocytes # 0.3 Macrocytosis 1+ Prothrombin Time 14.1 Prothrombin Time Ratio 1.1 INR International Normalized Ratio 1.09 Activated Partial Thromboplast Time 27.8 Sodium Level 137 Potassium Level 3.6 Chloride Level 99 Carbon Dioxide Level 27 Anion Gap 15 Blood Urea Nitrogen 32 H Creatinine 0.80 Glucose Level 186 Lactic Acid Level 1.6 0.8 1.3 Calcium Level 8.9 Total Bilirubin 0.1 L Direct Bilirubin 0.00 Indirect Bilirubin 0.1 Aspartate Amino Transf (AST/SGOT) 17 Alanine Aminotransferase (ALT/SGPT) 29 Alkaline Phosphatase 71 Troponin I < 0.012 Total Protein 6.6 Albumin 3.2 L Globulin 3.40 H Albumin/Globulin Ratio 0.94 Lipase 52 Urine Color LT. YELLOW Urine Clarity CLEAR Urine pH 7.[address] 1.010 Urine Ketones NEGATIVE Urine Nitrite NEGATIVE Urine Bilirubin NEGATIVE Urine Urobilinogen 0.2 E.U./dL Urine Leukocyte Esterase NEGATIVE Urine Microscopic RBC NONE SEEN Urine Microscopic WBC 0-2 Urine Hemoglobin NEGATIVE Urine Glucose NEGATIVE Urine Total Protein TRACE Test 03/01/17 17:19 03/02/17 00:47 03/02/17 05:35 03/02/17 06:33 Bedside Glucose 163 140 111 Sodium Level 139 Potassium Level 4.0 Chloride Level 113 H Carbon Dioxide Level 24 Anion Gap 6 #L Blood Urea Nitrogen 21 #H Creatinine 0.58 Glucose Level 104 # Hemoglobin A1c 6.5 H Calcium Level 8.8 Phosphorus Level 3.0 Magnesium Level 2.0 Total Bilirubin 0.0 L Direct Bilirubin 0.00 Indirect Bilirubin 0.0 Aspartate Amino Transf (AST/SGOT) 17 Alanine Aminotransferase (ALT/SGPT) 27 Alkaline Phosphatase 66 Total Protein 5.5 #L Albumin 2.7 L Globulin 2.80 Albumin/Globulin Ratio 0.96 Triglycerides Level 152 H Cholesterol Level 132 LDL Cholesterol, Calculated 60 HDL Cholesterol 42 Cholesterol/HDL Ratio 3.1 Thyroid Stimulating Hormone (TSH) 0.631 Free Thyroxine Index 2.54 Thyroxine (T4) 5.7 Triiodothyronine (T3) Uptake 44.5 H Medications Current Medications Fluticasone Propionate (Flonase 0.05% Nasal) 1 spray BID NASAL Last administered on 03/01/17 20:48; Admin Dose 1 SPRAY; Start 03/01/17 at 21:00 Zolpidem Tartrate (Ambien) 5 mg QHS PRN PO INSOMNIA; Start 03/01/17 at 16:00 Lansoprazole (Prevacid) 30 mg DAILY@06 GTB Last administered on 03/02/17 06:34 ; Admin Dose 30 MG; Start 03/02/17 at 06:00 Multivitamins 5 ml 5 ml DAILY GTB ; Start 03/02/17 at 09:00 Sodium Chloride (NS) 1,000 ml @ 80 mls/hr [id number] IV Last administered on 03/02 06:33; Admin Dose 80 MLS/HR; Start 03/01/17 at 16:00 Ondansetron HCl (Zofran Inj) 4 mg Q6H PRN IV NAUSEA AND/OR VOMITING; Start at 16:00 Docusate Sodium (Colace) 100 mg Q12H PRN PO CONSTIPATION; Start 03/01/17 at 16: 00 Bisacodyl (Dulcolax Supp) 10 mg DAILY PRN [place] CONSTIPATION; Start 03/01/17 at 16 :00 Heparin Sodium (Porcine) (Heparin (5000 Units/0.5 ml)) 5,000 unit Q12 SC Last administered on 03/01/17 20:59; Admin Dose 5,000 UNIT; Start 03/01/17 at 21:00 Miscellaneous Information 1 ea NOTE XX ; Start 03/01/17 at 16:00 Glucose (Glutose) 15 gm Q15M PRN PO DECREASED GLUCOSE; Start 03/01/17 at 16:00 Glucose (Glutose) 22.5 gm Q15M PRN PO DECREASED GLUCOSE; Start 03/01/17 at 16: 00 Dextrose (D50w Syringe) 25 ml Q15M PRN IV DECREASED GLUCOSE; Start 03/01/17 at 16:00 Dextrose (D50w Syringe) 50 ml Q15M PRN IV DECREASED GLUCOSE; Start 03/01/17 at 16:00 Glucagon (Glucagen) 1 mg Q15M PRN IM DECREASED GLUCOSE; Start 03/01/17 at 16:00 Glucose (Glutose) 15 gm Q15M PRN BUCCAL DECREASED GLUCOSE; Start 03/01/17 at 16 :00 Insulin Aspart (Novolog Insulin Pen) (Adult SC Insulin - Mild Algorithm)... Q6 SC ; Start 03/02/17 at 00:00 Acetaminophen/ Hydrocodone Bitart (Hasty (5/325)) 1 tab Q6H GTB Last administered on 03/01/17 20:48; Admin Dose 1 TAB; Start 03/01/17 at 20:30 Acetaminophen (Tylenol Tab) 650 mg Q6H PRN GTB PAIN AND OR ELEVATED TEMP; Start 03/01/17 at 22:00 Acetazolamide (Diamox) 250 mg BID GTB Last administered on 03/01/17 20:48; Admin Dose 250 MG; Start 03/01/17 at 21:00 Atorvastatin Calcium (Lipitor) 40 mg QHS GTB Last administered on 03/01/17 20: 48; Admin Dose 40 MG; Start 03/01/17 at 21:00 Citalopram Hydrobromide (Celexa) 20 mg DAILY GTB ; Start 03/02/17 at 09:00 Magnesium Hydroxide (Milk Of Mag) 30 ml DAILY PRN GTB CONSTIPATION; Start 03/01 at 20:30 Lactobacillus Acidophilus (Florajen3 Capsule) 1 each BID PEG Last administered on 03/01/17 20:57; Admin Dose 1 EACH; Start 03/01/17 at 21:00 Metoprolol Tartrate (Lopressor) 100 mg BID GTB Last administered on 03/01/17 20:57; Admin Dose 100 MG; Start 03/01/17 at 21:00 Prednisone (Prednisone) 10 mg DAILY GTB ; Start 03/02/17 at 09:00 Assessment/Plan Chief Complaint/Hosp Course 1. leucocytosis- Etiology is likely multifactorial secondary to steroids, poss sepsis. hold antibiotic therapy. id eval. sources are possible bronchitis vs colitis. start iv flagyl in interim 2. ho Ventilator dependent respiratory failure. sp trach collar 3. hypotension- responded to fluid challenge. monitor 4. Sepsis- braxton underway. 5. History of adrenal insufficiency. The patient is currently on prednisone. 6. tremors- consider neuro eval 7. History of tongue cancer status post surgical resection. The possibility of recurrence at the outside hospital. The patient is being followed by ENT. We will follow up recommendations. 8. Paroxysmal atrial fibrillation, currently in sinus rhythm. Continue to monitor. Continue medical management. 9. Hypothyroidism. We will resume Synthroid. 10. Hypertension. Blood pressure is currently normotensive. Continue to monitor. 11. Dysphagia, status post PEG. 12. Anemia of chronic disease. Continue to monitor hemoglobin and hematocrit levels. 13. History of volume overload, diastolic heart failure. We will continue to monitor I's and O's closely. We will decrease rate of IV fluids. 14. History of critical care myopathy. Continue to monitor. 15. Gastrointestinal and deep venous thrombosis prophylaxis. Continue proton pump inhibitor and sequential leg squeezers. 16. G&V- spent >30 min and reaffirmed full code. Problems: HILARY RUBIO MD March 02, 2017 09:56
[2017-03-02] MEDS: ACETAZOLAMIDE 250 MG TAB GTB SCH ×2 (11:21→20:53)
[2017-03-02] MEDS: MULTIVITAMINS 5 ML CUP GTB SCH (11:22)
[2017-03-02] MEDS: CITALOPRAM 20 MG TAB GTB SCH (11:22)
[2017-03-02] MEDS: METOPROLOL 100 MG TAB GTB SCH ×2 (11:23→20:55)
[2017-03-02] MEDS: FLUTICASONE 0.05% 16 GM NAS SPRAY NASAL SCH ×2 (11:23→20:54)
[2017-03-02] MEDS: HEPARIN 5,000 UNIT/0.5 ML VIAL SC SCH ×2 (11:25→20:51)
[2017-03-02] MEDS: metroNIDAZOLE 500 MG/NS (PMX) 100 ML IVPB SCH ×3 (11:28→21:24)
[2017-03-02] MEDS: L ACIDOPHIL/B LACTIS/B LONGUM CAPSULE PEG SCH ×2 (11:28→21:24)
--- NOTE | 2017-03-02 12:36 | CONS ---
Date/Time of Note Date/Time of Note DATE: 03/02/17 TIME: 12:35 Consultation Date/Type/Reason Admit Date/Time March 01, 2017 at 10:51 Date of Consultation: March 02, 2017 Type of Consultation: pulmonary Reason for Consultation dictated # [id number] Past Surgical History Past Surgical Hx: other Social History Smoking Status: Never smoker Exam/Review of Systems Vital Signs Vitals Vital Signs Date Time Temp Pulse Resp B/P Pulse Ox O2 Delivery O2 Flow Rate FiO2 03/02/17 12:04 98.6 100 20 127/63 95 03/02/17 05:52 5.0 28 03/02/17 05:02 Aerosol T Tube Intake and Output 03/01/17 03/01/17 03/02/17 15:00 23:00 07:00 Intake Total 1850 ml Balance 1850 ml Results Result Diagram: 03/01/17 0947 03/02/17 0535 Results 24 hrs Laboratory Tests Test 03/01/17 14:00 03/01/17 17:19 03/02/17 00:47 03/02/17 05:35 Lactic Acid Level 1.3 Bedside Glucose 163 140 Sodium Level 139 Potassium Level 4.0 Chloride Level 113 H Carbon Dioxide Level 24 Anion Gap 6 #L Blood Urea Nitrogen 21 #H Creatinine 0.58 Glucose Level 104 # Hemoglobin A1c 6.5 H Calcium Level 8.8 Phosphorus Level 3.0 Magnesium Level 2.0 Total Bilirubin 0.0 L Direct Bilirubin 0.00 Indirect Bilirubin 0.0 Aspartate Amino Transf (AST/SGOT) 17 Alanine Aminotransferase (ALT/SGPT) 27 Alkaline Phosphatase 66 Total Protein 5.5 #L Albumin 2.7 L Globulin 2.80 Albumin/Globulin Ratio 0.96 Triglycerides Level 152 H Cholesterol Level 132 LDL Cholesterol, Calculated 60 HDL Cholesterol 42 Cholesterol/HDL Ratio 3.1 Thyroid Stimulating Hormone (TSH) 0.631 Free Thyroxine Index 2.54 Thyroxine (T4) 5.7 Triiodothyronine (T3) Uptake 44.5 H Test 03/02/17 06:33 03/02/17 12:08 Bedside Glucose 111 142 Medications Medications Current Medications Fluticasone Propionate (Flonase 0.05% Nasal) 1 spray BID NASAL Last administered on 03/02/17t 11:23; Admin Dose 1 SPRAY; Start 03/01/17 at 21:00 Zolpidem Tartrate (Ambien) 5 mg QHS PRN PO INSOMNIA; Start 03/01/17 at 16:00 Lansoprazole (Prevacid) 30 mg DAILY@06 GTB Last administered on 03/02/17 06:34 ; Admin Dose 30 MG; Start 03/02/17 at 06:00 Multivitamins 5 ml 5 ml DAILY GTB Last administered on 03/02/17 11:22; Admin Dose 5 ML; Start 03/02/17 at 09:00 Sodium Chloride (NS) 1,000 ml @ 80 mls/hr [id number] IV Last administered on 03/02 06:33; Admin Dose 80 MLS/HR; Start 03/01/17 at 16:00 Ondansetron HCl (Zofran Inj) 4 mg Q6H PRN IV NAUSEA AND/OR VOMITING; Start at 16:00 Docusate Sodium (Colace) 100 mg Q12H PRN PO CONSTIPATION; Start 03/01/17 at 16: 00 Bisacodyl (Dulcolax Supp) 10 mg DAILY PRN [place] CONSTIPATION; Start 03/01/17 at 16 :00 Heparin Sodium (Porcine) (Heparin (5000 Units/0.5 ml)) 5,000 unit Q12 SC Last administered on 03/02/17 11:25; Admin Dose 5,000 UNIT; Start 03/01/17 at 21:00 Miscellaneous Information 1 ea NOTE XX ; Start 03/01/17 at 16:00 Glucose (Glutose) 15 gm Q15M PRN PO DECREASED GLUCOSE; Start 03/01/17 at 16:00 Glucose (Glutose) 22.5 gm Q15M PRN PO DECREASED GLUCOSE; Start 03/01/17 at 16: 00 Dextrose (D50w Syringe) 25 ml Q15M PRN IV DECREASED GLUCOSE; Start 03/01/17 at 16:00 Dextrose (D50w Syringe) 50 ml Q15M PRN IV DECREASED GLUCOSE; Start 03/01/17 at 16:00 Glucagon (Glucagen) 1 mg Q15M PRN IM DECREASED GLUCOSE; Start 03/01/17 at 16:00 Glucose (Glutose) 15 gm Q15M PRN BUCCAL DECREASED GLUCOSE; Start 03/01/17 at 16 :00 Insulin Aspart (Novolog Insulin Pen) (Adult SC Insulin - Mild Algorithm)... Q6 SC ; Start 03/02/17 at 00:00 Acetaminophen/ Hydrocodone Bitart ([place] (5/325)) 1 tab Q6H GTB Last administered on 03/02/17 11:22; Admin Dose 1 TAB; Start 03/01/17 at 20:30 Acetaminophen (Tylenol Tab) 650 mg Q6H PRN GTB PAIN AND OR ELEVATED TEMP; Start 03/01/17 at 22:00 Acetazolamide (Diamox) 250 mg BID GTB Last administered on 03/02/17 11:21; Admin Dose 250 MG; Start 03/01/17 at 21:00 Atorvastatin Calcium (Lipitor) 40 mg QHS GTB Last administered on 03/01/17 20: 48; Admin Dose 40 MG; Start 03/01/17 at 21:00 Citalopram Hydrobromide (Celexa) 20 mg DAILY GTB Last administered on 11:22; Admin Dose 20 MG; Start 03/02/17 at 09:00 Magnesium Hydroxide (Milk Of Mag) 30 ml DAILY PRN GTB CONSTIPATION; Start 03/01 at 20:30 Lactobacillus Acidophilus (Florajen3 Capsule) 1 each BID PEG Last administered on 03/02/17 11:28; Admin Dose 1 EACH; Start 03/01/17 at 21:00 Metoprolol Tartrate (Lopressor) 100 mg BID GTB Last administered on 03/02/17 11:23; Admin Dose 100 MG; Start 03/01/17 at 21:00 Prednisone 10 mg 10 mg DAILY GTB Last administered on 03/02/17 11:22; Admin Dose 10 MG; Start 03/02/17 at 09:00 Metronidazole (Flagyl 500 Mg (Pmx)) 100 ml @ 100 mls/hr Q8 IVPB Last administered on 03/02/17 11:28; Admin Dose 100 MLS/HR; Start 03/02/17 at 10:00 Methylprednisolone Sodium Succinate (Solu-Medrol) 40 mg Q8 IV ; Start 03/02/17 at 14:00 EMILIANO HICKS March 02, 2017 12:36
[2017-03-02] MEDS: LEVALBUTEROL (NEB) 1.25 MG/0.5 ML AMP HHN SCH ×2 (14:03→19:57)
[2017-03-02] MEDS: METHYLPREDNISOLONE 40 MG INJ IV SCH ×2 (15:00→21:24)
--- NOTE | 2017-03-02 15:40 | HP ---
DATE OF ADMISSION: 03/01/2017 HISTORY OF PRESENT ILLNESS: The patient is a 66-year-old female with a past medical history of resp iratory failure, tongue cancer diagnosed 10 years ago, status post resection and reconstructive surg milagros, history of hypertension, dysphagia status post PEG, who presented from [facility] after noticing fever, hypoxia, some suprapubic discomfort. History is obtained from the art. There have been no recent changes to any medications; had some adjustment of her diuretics rec ently. Denies fevers, chills, nausea, vomiting. At this time, patient is communicative, working on capping the tracheostomy recently and has been tolerating some physical therapy. PAST MEDICAL HISTORY: The above. MEDICATIONS: From home include: 1. Lidocaine patch. 2. Lipitor. 3. Tylenol. 4. Prednisone. 5. Ambien. 6. Protonix. 7. [place]. 8. Metoprolol. 9. Lactobacillus. 10. Synthroid. 11. Levalbuterol. 12. Acetazolamide. 13. Flonase 14. Citalopram. ALLERGIES: PATIENT IS ALLERGIC TO OXYCODONE, POVIDONE, IODINE, PROMETHAZINE, SOAP. SOCIAL HISTORY: Does not smoke, drink or use drugs. FAMILY HISTORY: No history of kidney disease. REVIEW OF SYSTEMS: A 14-point review of systems is attempted and negative unless stated on exam. PHYSICAL EXAMINATION: VITAL SIGNS: We see temperature 100.1, blood pressure 91/57. HEENT: Normocephalic, atraumatic. NECK: Supple. HEART: Regular rate and rhythm. LUNGS: Clear to auscultation. ABDOMEN: Soft, nontender, bowel sounds present. LABORATORY EVALUATION: White count 33.6, hemoglobin 9.3, hematocrit 30. Sodium 137, potassium 3.6, BUN 32, creatinine 0.8. UA is reviewed on microscopy. Chest x-ray is reviewed by radiologist. IMPRESSION: 1. Leukocytosis with no UTI or x-ray evidence of infection, CT suggestive of bronchitis versus coli tis. The patient will be admitted, cultures will be obtained. ID consultation will be obtained. M onitor serial CBCs in light they may be a leukemoid reaction from prednisone. We will monitor. 2. Acute bronchitis, use sparing antibiotics, monitor. Pulmonary consultation will be obtained. 3. Acute on chronic respiratory failure, was ____, will continue on oxygen. 4. Hypotension. We will volume resuscitate monitor. 5. History of tongue cancer status post resection, trach because of the potential difficulty with i ntubation. 6. Previous pneumothorax. No evidence currently. 7. History of renal insufficiency, on steroids. Will hold ____. 8. Paroxysmal atrial fibrillation, rate controlled. On anticoagulation. We will monitor. 9. Hypertension, currently hypotensive with medication is on hold. 10. Metabolic alkalosis on Acetazolamide. Dictated By: HILARY MUELLER/BALDO Conf#: [id number] DID#: [id number]
--- NOTE | 2017-03-02 17:01 | CONS ---
DATE OF ADMISSION: 03/01/2017 DATE OF CONSULTATION: 03/02/2017 TIME: 12:25 p.m. REASON FOR REFERRAL: For evaluation of fever. REFERRING PHYSICIAN: Dr. Nina Maciel. HISTORY OF PRESENT ILLNESS: Ms. Glasgow is a very pleasant 66-year-old white lady who was transferre d over from half-way to the hospital because of low grade fever. Upon further evaluation, the p atient had significant leukocytosis of 33,000. However, a chest x-ray was done, which has been unre markable. The patient also has had a urinalysis done, which also was negative for any infection. B y the time I saw the patient, the patient is completely awake, alert, was able to talk somewhat desp ite being on tracheal T-piece. Denies any abdominal pain, nausea, vomiting, fever, chills, shortnes s of breath, cough, but does complain of mild chest congestion. PAST MEDICAL HISTORY: 1. 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 2. History of cardiac arrest a month and a half ago when the patient was at [facility]. Howev er, the patient did not suffer any neurological injury and the patient had to be retrached because o f upper airway obstruction. 3. History of pneumonia. 4. Chronic obstructive pulmonary disease. 5. Hypothyroidism. 6. Hypertension. 7. Diabetes. 8. Chronic steroid use. MEDICATIONS: Currently, the patient is on: 1. Flagyl 500 mg IV q.8 hours. 2. Normal saline at KVO. 3. Diamox 250 mg b.i.d. 4. Lipitor 40 mg a day. 5. Celexa 20 mg a day. 6. Flonase nasal inhaler daily. 7. Hydrocodone on a p.r.n. basis. 8. Insulin on a sliding scale. 9. Prevacid 30 mg a day. 10. Synthroid 0.075 mg a day. 11. Lopressor 100 mg b.i.d. 12. Prednisone 10 mg daily. ALLERGIES: OXYCODONE, IODINE, PROMETHAZINE. SOCIAL HISTORY: The patient does have a history of smoking in the past. FAMILY HISTORY: The patient is , has a very supportive family. OCCUPATIONAL HISTORY: Noncontributory. REVIEW OF SYSTEMS: Denies any headache, seizures, visual changes. Does complain of chronic difficu lty swallowing. Denies any chest pain, angina. Complains of mild chest congestion and mild wheezin g. Denies any abdominal pain, nausea, vomiting, melena, hematochezia, any edema, orthopnea, PND. PHYSICAL EXAMINATION: GENERAL: Elderly lady, awake, alert, currently in no distress. VITAL SIGNS: Temperature 98.6 degrees Fahrenheit, heart rate of 92, blood pressure 128/64, respirat ory rate is 18 per minute, O2 sat 95% on tracheal T-piece, 28% FIO2. HEENT: Supple neck. No JVD, no lymphadenopathy. Midline trachea. No thyromegaly. Pharynx clear. No neck bruits. The patient has fair dentition. Tracheostomy in place with clean insertion site. Pupils are mid size, reactive to light. CHEST: Bilateral wheezing. HEART: S1, S2 audible. No murmurs. Regular rhythm. ABDOMEN: Soft. G-tube in place. No organomegaly. Bowel sounds audible. EXTREMITIES: No peripheral edema. Pulses 1+ bilaterally. NEUROLOGIC: No focal deficit. LABORATORY DATA: From today, sodium is 139, potassium 4, chloride 113, bicarbonate 24, glucose of 1 04, BUN 21, creatinine 0.5. Liver enzymes are normal. White count of 33,000 drawn at 9:47 a.[address]. yes terday, hemoglobin 9.3, platelet count of 405. Urinalysis is negative for infection. ASSESSMENT AND PLAN: 1. The patient admitted with low-grade fever, possibly acute tracheobronchitis. 2. Multiple other comorbidities as outlined in consult note. RECOMMENDATIONS: Add Zithromax 500 mg IV daily. Also add Solu-Medrol 40 mg q.8h. at least for 3 do ses. Repeat followup chest x-ray in 24 hours. Continue other supportive measures. Change Xopenex to scheduled q.8h. from p.r.n. Dictated By: EMILIANO HICKS MD AQ/NTS Conf#: [id number] DID#: [id number] CC: DEEPA YOUSSEF MD; NINA MACIEL DO;*EndCC*
[2017-03-02] MEDS: ATORVASTATIN 40 MG TAB GTB SCH (20:54)
[2017-03-03] VITALS (12 sets, daily range): BP systolic 98–133; BP diastolic 55–78; PULSE 80–100; RESP 17–20
[2017-03-03] MEDS: Insulin NOVOLOG SS MILD Algorithm (NPO/TPN/ENTERAL FEEDS) SC SCH ×4 (01:24→18:25)
[2017-03-03] MEDS: LEVALBUTEROL (NEB) 1.25 MG/0.5 ML AMP HHN SCH ×4 (02:23→19:55)
[2017-03-03] MEDS: HYDROCODONE/APAP (5/325) TAB GTB SCH ×4 (02:30→21:35)
[2017-03-03] MEDS: SOD CHLORIDE 0.9% 1,000 ML IV SCH (05:30)
[2017-03-03] MEDS: LANSOPRAZOLE 30 MG CAP GTB SCH (05:46)
[2017-03-03] MEDS: metroNIDAZOLE 500 MG/NS (PMX) 100 ML IVPB SCH ×3 (05:46→21:27)
[2017-03-03] MEDS: METHYLPREDNISOLONE 40 MG INJ IV SCH (05:46)
[2017-03-03] MEDS: LEVOTHYROXINE 75 MCG TAB GTB SCH (05:56)
[2017-03-03 06:23] LABS: ADD SCAN DIFF NO
[2017-03-03 06:27] LABS: ABNORMAL IP MESSAGE 1; BASOPHILS % 0.1 % (0.0-2.0); HEMATOCRIT 28.6 % (37.0-47.0); HEMOGLOBIN 8.8 g/dl (12.0-16.0); LYMPHOCYTES # 0.4 10^3/ul (0.8-2.9); LYMPHOCYTES % 2.3 % (15.0-51.0); MEAN CORPUSCULAR HEMOGLOBIN 31.8 pg (29.0-33.0); MEAN CORPUSCULAR HGB CONC 30.8 g/dl (32.0-37.0); MEAN CORPUSCULAR VOLUME 103.2 fl (82.0-101.0); MEAN PLATELET VOLUME 10.6 fl (7.4-10.4); MONOCYTE # 0.2 10^3/ul (0.3-0.9); MONOCYTES % 0.8 % (0.0-11.0); NEUTROPHIL # 17.9 10^3/ul (1.6-7.5); NEUTROPHILS % 92.8 % (39.0-77.0); PLATELET COUNT 391 10^3/UL (140-415); RED BLOOD COUNT 2.77 10^6/ul (4.20-5.40); WHITE BLOOD COUNT 19.3 10^3/ul (4.8-10.8)
[2017-03-03 06:59] LABS: POTASSIUM 3.9 mmol/L (3.5-5.1)
[2017-03-03 07:01] LABS: CREATININE 0.62 mg/dl (0.44-1.00)
[2017-03-03 07:03] LABS: CALCIUM 9.1 mg/dl (8.4-10.2); PHOSPHORUS 2.8 mg/dl (2.5-4.9)
--- NOTE | 2017-03-03 08:56 | PN ---
DATE: 03/03/2017 SUBJECTIVE: The patient is stable. No acute events overnight. No hemoptysis, hematemesis or hemat ochezia. No further fevers noted. OBJECTIVE: VITAL SIGNS: Blood pressure is 98/55, respirations 20, pulse 78, temperature 98.0. HEENT: Head is normocephalic. Trach. NECK: Supple. HEART: Regular rate. LUNGS: Showed diminished breath sounds at the base. ABDOMEN: Soft, nontender to palpation. No rebound or guarding. Positive PEG. EXTREMITIES: Negative for clubbing or cyanosis. No edema. DERMATOLOGIC: No rashes. MUSCULOSKELETAL: Have no joint effusion. NEUROLOGIC: No change in exam. IMAGING STUDIES: CT scan of the abdomen and pelvis shows right basilar bronchial pneumonia and colo filemon wall thickening, suggestive of mild colitis. Cholelithiasis without evidence of cholecystitis. Chest x-ray shows prominence of vascular and interstitial markings, suggestive of congestion. Blood cultures have been reviewed and negative to date. Laboratory data shows white count 19.3, hem oglobin 9.8, hematocrit 28.6, platelet count 391. Sodium 141, potassium 3.9, chloride 111, BUN 25, creatinine 0.62. ASSESSMENT AND PLAN: This is a 66-year-old female who presents with: 1. Sepsis. Etiology is felt to be secondary to pneumonia, healthcare-associated, possible colitis. The patient's blood cultures have been reviewed and negative to date. The patient is clinically i mproving. Her white count is trending down. Will continue the current antibiotic regimen with Flag yl. Will also place an ID consult for evaluation and a GI consult for evaluation. Will monitor felicity sely. 2. Possible colitis. The patient's CT scan of the abdomen and pelvis shows colonic wall thickening , as stated above. Will continue Flagyl, will place a GI consult for evaluation. The patient's sto ol for C. difficile will be sent. Will monitor closely. 3. Chronic respiratory failure, status post tracheostomy. Currently stable. Continue Foll ow up with pulmonary. 4. Dysphagia. Status post PEG. Continue tube feeding. 5. Leukocytosis. Etiology is secondary to sepsis in conjunction with possible steroids. Continue to monitor. White count has been trending down. 6. History of adrenal insufficiency. Continue Solu-Medrol. Will consider deescalating to predniso ne. 7. History of tongue cancer. Status post resection. No evidence of recurrence. 8. Paroxysmal atrial fibrillation. Currently in sinus rhythm. Continue medical regimen. 9. Hyperthyroidism. Continue Synthroid. 10. History of acute diastolic heart failure. The patient clinically appears euvolemic. Continue to monitor. 11. History of critical care myopathy. 12. Alkalosis. The patient is currently on Diamox. Will discontinue. 13. Diabetes. Continue Accu-Cheks and insulin sliding scale. 14. Gastrointestinal and deep venous thrombosis prophylaxis. Continue with Prevacid and sequential leg squeezers. 15. Depression. Continue Celexa. 16. Coronary artery disease. Continue the current medical management. 17. Previous history of Code Arrest. Dictated By: NINA PEREIRA/BALDO Conf#: [id number] DID#: [id number]
[2017-03-03] MEDS: L ACIDOPHIL/B LACTIS/B LONGUM CAPSULE PEG SCH ×2 (09:38→21:50)
[2017-03-03] MEDS: CITALOPRAM 20 MG TAB GTB SCH (09:38)
[2017-03-03] MEDS: MULTIVITAMINS 5 ML CUP GTB SCH (09:38)
[2017-03-03] MEDS: METOPROLOL 100 MG TAB GTB SCH ×2 (09:39→21:35)
[2017-03-03] MEDS: FLUTICASONE 0.05% 16 GM NAS SPRAY NASAL SCH ×2 (09:39→21:28)
[2017-03-03] MEDS: HEPARIN 5,000 UNIT/0.5 ML VIAL SC SCH ×2 (09:41→21:49)
--- NOTE | 2017-03-03 11:20 | CONS ---
Date/Time of Note Date/Time of Note DATE: 03/03/17 TIME: 11:17 Consult Date/Type/Reason Admit Date/Time March 01, 2017 at 10:51 Initial Consult Date 03/02/17 Type of Consultation: pulmonary Subjective Patient comfortable this morning no new events Objective Vital Signs Date Time Temp Pulse Resp B/P Pulse Ox O2 Delivery O2 Flow Rate FiO2 03/03/17 08:12 95 03/03/17 08:06 97.6 18 117/60 99 03/03/17 07:59 5.0 28 03/03/17 07:59 Aerosol Intake and Output 03/02/17 03/02/17 03/03/17 15:00 23:00 07:00 Intake Total 100 ml 1880 ml Balance 100 ml 1880 ml Exam PHYSICAL EXAMINATION: GENERAL: Elderly lady, awake, alert, currently in no distress. VITAL SIGNS: As above HEENT: Supple neck. No JVD, no lymphadenopathy. Midline trachea. clean insertion site. Pupils are mid size, reactive to light. CHEST: Bilateral wheezing. HEART: S1, S2 audible. No murmurs. Regular rhythm. ABDOMEN: Soft. G-tube in place. No organomegaly. Bowel sounds audible. EXTREMITIES: No peripheral edema. Pulses 1+ bilaterally. NEUROLOGIC: No focal deficit. Results/Medications Result Diagram: 03/03/17 0536 03/03/17 0536 Results 24 hrs Laboratory Tests Test 03/02/17 12:08 03/02/17 17:40 03/03/17 01:18 03/03/17 05:36 Bedside Glucose 142 223 H 235 H White Blood Count 19.3 #H Red Blood Count 2.77 L Hemoglobin 8.8 L Hematocrit 28.6 L Mean Corpuscular Volume 103.2 H Mean Corpuscular Hemoglobin 31.8 Mean Corpuscular Hemoglobin Concent 30.8 L Red Cell Distribution Width 16.0 H Platelet Count 391 Mean Platelet Volume 10.6 H Neutrophils % 92.8 H Lymphocytes % 2.3 L Monocytes % 0.8 Eosinophils % 0.0 Basophils % 0.1 Nucleated Red Blood Cells % 0.0 Neutrophils # 17.9 H Lymphocytes # 0.4 L Monocytes # 0.2 L Eosinophils # 0.0 Basophils # 0.0 Nucleated Red Blood Cells # 0.0 Sodium Level 141 Potassium Level 3.9 Chloride Level 111 H Carbon Dioxide Level 22 Anion Gap 12 Blood Urea Nitrogen 25 H Creatinine 0.62 Glucose Level 248 #H Calcium Level 9.1 Phosphorus Level 2.8 Magnesium Level 2.0 Test 03/03/17 05:48 Bedside Glucose 259 H Medications Current Medications Fluticasone Propionate (Flonase 0.05% Nasal) 1 spray BID NASAL Last administered on 03/03/17 09:39; Admin Dose 1 SPRAY; Start 03/01/17 at 21:00 Zolpidem Tartrate (Ambien) 5 mg QHS PRN PO INSOMNIA; Start 03/01/17 at 16:00 Lansoprazole (Prevacid) 30 mg DAILY@06 GTB Last administered on 03/03/17 05:46 ; Admin Dose 30 MG; Start 03/02/17 at 06:00 Multivitamins (Thera-Plus) 5 ml DAILY GTB Last administered on 03/03/17 09:38 ; Admin Dose 5 ML; Start 03/02/17 at 09:00 Ondansetron HCl (Zofran Inj) 4 mg Q6H PRN IV NAUSEA AND/OR VOMITING; Start at 16:00 Docusate Sodium (Colace) 100 mg Q12H PRN PO CONSTIPATION; Start 03/01/17 at 16: 00 Bisacodyl (Dulcolax Supp) 10 mg DAILY PRN [place] CONSTIPATION; Start 03/01/17 at 16 :00 Heparin Sodium (Porcine) (Heparin (5000 Units/0.5 ml)) 5,000 unit Q12 SC Last administered on 03/03/17 09:41; Admin Dose 5,000 UNIT; Start 03/01/17 at 21:00 Miscellaneous Information 1 ea NOTE XX ; Start 03/01/17 at 16:00 Glucose (Glutose) 15 gm Q15M PRN PO DECREASED GLUCOSE; Start 03/01/17 at 16:00 Glucose (Glutose) 22.5 gm Q15M PRN PO DECREASED GLUCOSE; Start 03/01/17 at 16: 00 Dextrose (D50w Syringe) 25 ml Q15M PRN IV DECREASED GLUCOSE; Start 03/01/17 at 16:00 Dextrose (D50w Syringe) 50 ml Q15M PRN IV DECREASED GLUCOSE; Start 03/01/17 at 16:00 Glucagon (Glucagen) 1 mg Q15M PRN IM DECREASED GLUCOSE; Start 03/01/17 at 16:00 Glucose (Glutose) 15 gm Q15M PRN BUCCAL DECREASED GLUCOSE; Start 03/01/17 at 16 :00 Insulin Aspart (Novolog Insulin Pen) (Adult SC Insulin - Mild Algorithm)... Q6 SC Last administered on 03/03/17 05:56; Admin Dose 3 UNIT; Start 03/02/17 at 00:00 Acetaminophen/ Hydrocodone Bitart ([place] (5/325)) 1 tab Q6H GTB Last administered on 03/03/17 09:38; Admin Dose 1 TAB; Start 03/01/17 at 20:30 Acetaminophen (Tylenol Tab) 650 mg Q6H PRN GTB PAIN AND OR ELEVATED TEMP; Start 03/01/17 at 22:00 Atorvastatin Calcium (Lipitor) 40 mg QHS GTB Last administered on 03/02/17 20: 54; Admin Dose 40 MG; Start 03/01/17 at 21:00 Citalopram Hydrobromide (Celexa) 20 mg DAILY GTB Last administered on 09:38; Admin Dose 20 MG; Start 03/02/17 at 09:00 Magnesium Hydroxide (Milk Of Mag) 30 ml DAILY PRN GTB CONSTIPATION; Start 03/01 at 20:30 Lactobacillus Acidophilus (Florajen3 Capsule) 1 each BID PEG Last administered on 03/03/17 09:38; Admin Dose 1 EACH; Start 03/01/17 at 21:00 Metoprolol Tartrate 100 mg 100 mg BID GTB Last administered on 03/03/17 09:39 ; Admin Dose 100 MG; Start 03/01/17 at 21:00 Metronidazole (Flagyl 500 Mg (Pmx)) 100 ml @ 100 mls/hr Q8 IVPB Last administered on 03/03/17 05:46; Admin Dose 100 MLS/HR; Start 03/02/17 at 10:00 Methylprednisolone Sodium Succinate (Solu-Medrol) 40 mg BID IV ; Start 03/03/17 at 21:00 Assessment/Plan Chief Complaint/Hosp Course Assessment 1. Chronic respiratory failure 2. Likely acute tracheal bronchitis with leukocytosis 3. Possible colitis based on CT abdomen 4. History of tongue cancer 5. History of diabetes mellitus Plan 1. Continue antibiotics 2. Continue supplemental O2 3. Continue trach site care 4. Aspiration precautions 5. Feeding as tolerated Disposition Continue current care Problems: DARWIN CRAWFORD MD, [facility] March 03, 2017 11:20
[2017-03-03] MEDS ORDERED: VANCOMYCIN IV PER PHARMACY XX SCH (12:30)
--- NOTE | 2017-03-03 13:04 | CONS ---
DATE OF ADMISSION: 03/01/2017 DATE OF CONSULTATION: GASTROENTEROLOGICAL CONSULTATION REFERRING PHYSICIAN: Nina Maciel DO REASON FOR CONSULTATION: Abnormal finding on the CAT scan. HISTORY OF PRESENT ILLNESS: The patient is a 66-year-old female with a history of tongue cancer, re spiratory failure, status post resection reconstructive surgery, history of hypertension, status pos t PEG, is a resident of long-term. The patient was brought to the emergency room for fever, hypo xemia, and some suprapubic discomfort. She was evaluated in the ER, had a CAT scan of the abdomen a nd pelvis done which showed mild colitis, so GI consult was called in. No history of GI bleeding or diarrhea or constipation. No chest pain, no shortness of breath. PAST MEDICAL HISTORY: As described. MEDICATIONS: She is on: 1. Prednisone 2. Lidocaine. 3. Protonix. 4. [place]. 5. Metoprolol. 6. Flonase. 7. Xanax. ALLERGIES: THE PATIENT IS ALLERGIC TO: 1. OXYCODONE. 2. IODINE. SOCIAL HISTORY: Does not smoke or drink. REVIEW OF SYSTEMS: Negative. PHYSICAL EXAMINATION: GENERAL: Alert, awake, not in distress. VITAL SIGNS: Stable. HEENT: Unremarkable. NECK: Supple, no thyromegaly, no lymphadenopathy. CARDIOVASCULAR: No murmur, gallop or click. LUNGS: The patient is status post trach, on aerosol. ABDOMEN: Benign. G-tube in place. EXTREMITIES: No edema. CENTRAL NERVOUS SYSTEM: Moving all the extremities. LABORATORY DATA: Her WBC count which was 33,000 has dropped to 19,000, hematocrit is 28, platelet c ount is within normal limits. Glucose is high. Liver function tests are within normal limits. Coa gulation also is normal. CAT scan of the abdomen and pelvis was done which showed gallstone, bronch opneumonia, diffuse colonic wall thickening, possible colitis. IMPRESSION: 1. Colitis, the etiology is unclear. 2. Respiratory failure, status post trach, on aerosol. 3. Sepsis, possible pneumonia, rule out urinary tract infection. 4. Dysphagia, status post percutaneous endoscopic gastrostomy. 5. Renal insufficiency. The patient is on Solu-Medrol. 6. History of tongue cancer. 7. Hypothyroidism. 8. Diabetes mellitus. 9. Depression. 10. Coronary artery disease. PLAN: To send stool for C difficile culture, ova, parasites. Continue present care. If all the st ool cultures are negative, and the patient continues to be symptomatic, then will proceed with colon oscopy. Dictated By: ALYSSA INGRAM/BALDO Conf#: [id number] DID#: [id number] CC: NINA MACIEL DO;*EndCC*
--- NOTE | 2017-03-03 13:18 | PN ---
DATE: 03/03/2017 SUBJECTIVE: No acute changes. The patient is awake, lying comfortably in bed. No fevers. LABORATORIES: WBC on admission was 33.6, today 19.3, platelets 391, neutrophils 92.8. BUN 25, creatinine 0.62. MICROBIOLOGY: Cultures remain negative. INDWELLINGS: Trach, PEG, Latif. DIAGNOSTICS: CT of the abdomen and pelvis revealed bronchopneumonia with mild diffuse colonic wall thickening suggestive of mild diffuse colitis. ANTIMICROBIALS: The patient is on: 1. Flagyl. 2. She is also getting IV steroids. PHYSICAL EXAMINATION: GENERAL: This is a fragile, well-developed, elderly woman who is in no distress. HEENT: Head atraumatic, normocephalic. Sclerae anicteric. Buccal mucosa dry. NECK: Supple. Tracheostomy present. CHEST: Rise symmetrical. Breath sounds diminished to bases. HEART: S1, S2. ABDOMEN: Soft, bowel tones present. EXTREMITIES: No cyanosis. ASSESSMENT: 1. Sepsis with persistent leukocytosis. 2. Probable Clostridium difficile colitis as per CT of the abdomen and pelvis and chest. 3. Bibasilar bronchiolitis per chest CT concerning for bronchopneumonia. 4. Dysphagia. 5. Paroxysmal atrial fibrillation. 6. Diabetes. 7. History of tongue cancer. PLAN: We are going to start patient on cefepime and vancomycin. Send sputum for culture, sent stool for Clostridium difficile. Continue Flagyl. Continue steroid taper. Follow recommendations of consultants. Dictated By: LORETO MCKEON AGRIC[employer]ICS TEACHER for MARY LEONARDO/BALDO Conf#: [id number] DID#: [id number] ALEKSANDRA
[2017-03-03] MEDS ORDERED: VANCOMYCIN 1 GM in NS 250 ML IVPB SCH (14:00)
--- NOTE | 2017-03-03 18:54 | CONS ---
DATE OF ADMISSION: 03/01/2017 DATE OF CONSULTATION: 03/03/2017 TYPE OF CONSULTATION: Infectious disease. REASON FOR CONSULTATION: Antibiotic management. HISTORY OF PRESENT ILLNESS: Mac Glasgow is a 66-year-old female with a number of problems who was admitted from [facility] with fever, hypoxia and suprapubic disco mfort. Past problems include: 1. History of respiratory failure. 2. Tongue cancer diagnosed 10 years ago, status post resection and reconstructive surgery. 3. Hypertension. 4. Dysphagia, status post G-tube placement. 5. Status post tracheostomy. 6. ALLERGY TO OXYCODONE, POVIDONE, IODINE, PROMETHAZINE AND SOAP. On admission, her white count was 33.6, H and H 9.3 and 30, BUN and creatinine 28/0.8. Today, her w johanny count is down to 19.3, H and H of 8.8 and 28.6, platelet count of 391,000. BUN and creatinine is 25/0.62. Her urine is negative for nitrite and leukocyte esterase. MICROBIOLOGY: Her blood cultures and urine cultures are negative. Chest x-ray shows cardiomegaly a nd prominence of the vascular and interstitial markings suggestive of mild congestion. No focal con solidation or pleural effusion. Tracheostomy is in place. A CT scan of the abdomen and pelvis show s bibasilar bronchiolitis, bronchopneumonia, patchy bibasilar pulmonary tree-in-bud opacity and cons olidation is seen. Cholelithiasis without cholecystitis. Gastrostomy tube is within the stomach, n o urolithiasis. She has right aortoiliac atherosclerotic calcifications. PAST MEDICAL HISTORY: Operations as outlined. FAMILY HISTORY: Noncontributory. SOCIAL HISTORY: She does not smoke, drink or abuse drugs. ALLERGIES: NONE TO PENICILLIN, SULFA OR FOODS. MEDICATIONS: Per chart. REVIEW OF SYSTEMS: As per HPI. PHYSICAL EXAMINATION: GENERAL: The patient is a well-developed, well-nourished female who is awake, responsive, in no acu te distress. VITAL SIGNS: Stable. T-max was 100.1. Today she is afebrile. She has a trach, PEG and a Latif. She is a fragile, elderly female. SKIN: Without generalized rash. HEENT: Within normal limits. NECK: Tracheostomy in place. LYMPH NODES: None palpable. CHEST: Decreased breath sounds at the bases. HEART: Without murmur or gallop. ABDOMEN: Soft, nontender, without organosplenomegaly or masses. EXTREMITIES: Without cyanosis, clubbing, or edema. RECTAL AND GENITAL: Deferred. NEUROLOGIC: No focal neurological abnormalities. IMPRESSION AND PLAN: Sepsis with persistent leukocytosis and probable Clostridium difficile colitis . The CT scan of the abdomen and pelvis shows mild diffuse colonic wall thickening suggestive of mi ld diffuse colitis. Patient was started on vancomycin and cefepime as well as oral vancomycin. She is also on Flagyl, so we are essentially treating her for C. difficile. I will dictate my findings to Dr. Torres, Dr. Valderrama, Dr. Mena and Dr. Higuera. Dictated By: MARY ROWE MD, JD/BALDO Conf#: [id number] DID#: [id number]
[2017-03-03] MEDS ORDERED: METHYLPREDNISOLONE 40 MG INJ IV SCH (21:00)
[2017-03-03] MEDS: CEFEPIME 1GM/50 ML (PMX) 50 ML IVPB SCH (21:27)
[2017-03-03] MEDS: ATORVASTATIN 40 MG TAB GTB SCH (21:27)
[2017-03-04] VITALS (12 sets, daily range): BP systolic 118–142; BP diastolic 63–74; PULSE 69–144; RESP 18–20
[2017-03-04] MEDS: Insulin NOVOLOG SS MILD Algorithm (NPO/TPN/ENTERAL FEEDS) SC SCH ×2 (00:01→06:01)
[2017-03-04] MEDS: LEVALBUTEROL (NEB) 1.25 MG/0.5 ML AMP HHN SCH ×4 (01:23→20:04)
[2017-03-04] MEDS: HYDROCODONE/APAP (5/325) TAB GTB SCH ×4 (02:22→22:10)
[2017-03-04] MEDS: LANSOPRAZOLE 30 MG CAP GTB SCH (05:51)
[2017-03-04] MEDS: metroNIDAZOLE 500 MG/NS (PMX) 100 ML IVPB SCH ×3 (05:51→22:07)
[2017-03-04] MEDS: LEVOTHYROXINE 75 MCG TAB GTB SCH (07:10)
--- NOTE | 2017-03-04 07:37 | CONS ---
DATE OF ADMISSION: 03/01/2017 DATE OF CONSULTATION: 03/03/2017 REFERRING PHYSICIAN: Dr. Nina Valderrama. REASON FOR CONSULTATION: Arrhythmia. CHIEF COMPLAINT: Fever and leukocytosis. HISTORY OF PRESENT ILLNESS: Thank you for this referral. History obtained from the patient, bethany ernandez review of the old chart. The patient ____, discussion with the staff and physician. This is a pleasant 66-year-old female with multiple complicated medical history including tongue cancer, respi ratory failure, status post tracheostomy, and history of arrhythmia who was admitted with the above complaint. The patient has had her recent complicated course. Has been transferred from a [place] [facility] [facility] for increasing fever and leukocytosis. The rhythm strip has been reviewed. The patie nt had multiple episodes of frequent PVCs. In the past, also normal episodes of atrial fibrillation , currently remains in sinus rhythm. Because of above, I was kindly asked to evaluate and treat. T he patient denies any palpitations, any chest pain to me. PAST MEDICAL HISTORY: Mostly from extensive review of the old chart. The patient has history of to ngue cancer status post surgical resection many years ago, history of ____, PEG placement, history o f arrhythmias with frequent PVCs and ventricular arrhythmia as well as ____ of paroxysmal atrial fib rillation in the past, history of status post renal failure previously on dialysis currently stable, history of renal insufficiency, hypertension, thyroid disorder. SURGICAL HISTORY: PEG placement, ENT surgery, and above-mentioned tracheostomy placed. SOCIAL HISTORY: Does not smoke or drink. FAMILY HISTORY: No reported ____. ALLERGIES: 1. OXYCODONE. 2. IODINE. 3. PROMETHAZINE. 4. ____ REVIEW OF SYSTEMS: As above-mentioned. MEDICATIONS: Currently, the patient has been placed on: 1. Vancomycin. 2. Flagyl. 3. Levothyroxine. 4. Lipitor. 5. Metoprolol. 6. ____ b.i.d. REVIEW OF SYSTEMS: As above mentioned. PHYSICAL EXAMINATION: VITAL SIGNS: Temperature 98, heart rate of 97, blood pressure 122/70, respiration rate of 16. Satu rating 97%. HEENT: Normocephalic, atraumatic. NECK: Status post tracheostomy, on oxygen. CARDIOVASCULAR: Regular rate and rhythm, systolic murmur. PULMONARY: Anteriorly with no wheezes heard. EYES: Pupils equal and round. GASTROINTESTINAL: Soft. ____. No rebound or guarding. EXTREMITIES: ____. NEUROLOGIC: Awake, responds appropriately. PSYCHIATRIC: Appears to be calm and pleasant. LABORATORY: WBC of 19.3, yesterday was 33.6, hemoglobin 8.8, platelets of 391. Sodium 141, potassi um 3.9, BUN of 25, creatinine 0.62, glucose 248. Abdominal and pelvic CT shows ____ basilar bronchi olitis/bronchopneumonia, mild diffuse colonic wall thickening ____ colitis. Review of the old chart shows an echocardiogram done on 12/16/2016, which was personally reviewed, showed ejection fraction of 65% with grade I diastolic dysfunction. Aortic valve area was about 1.6 cm2. ASSESSMENT AND PLAN: 1. Hypoxemic and respiratory failure status post tracheostomy, ventilator dependent. 2. History of arrhythmia with ventricular arrhythmia. 3. Possible sepsis. 4. History of paroxysmal atrial fibrillation, currently in sinus rhythm. 5. Hypertension, under control. 6. Possible colitis. 7. History of renal insufficiency, on steroids. 8. History of thyroid disorder, on Synthroid. 9. History of congestive heart failure/fluid overload, currently with normal left ventricular systo lic function ____ 10. Polyneuropathy. 11. Diabetes. RECOMMENDATIONS: Antibiotic is managed as per internal medicine and ID. Electrolytes including pot assium and magnesium will be replaced as needed. Beta shanta will be continued. Continue to monit or closely in telemetry. Respiratory care will be continued. Will continue to follow along with yo u. Dictated By: FRANCISCO BLACKWOOD MD AV/BALDO Conf#: [id number] DID#: [id number] CC: NINA VALDERRAMA DO;*EndCC*
[2017-03-04 08:43] LABS: ADD SCAN DIFF NO
[2017-03-04 08:59] LABS: ABNORMAL IP MESSAGE 1; BASOPHIL # 0.1 10^3/ul (0.0-0.1); BASOPHILS % 0.3 % (0.0-2.0); HEMATOCRIT 28.8 % (37.0-47.0); LYMPHOCYTES # 0.8 10^3/ul (0.8-2.9); LYMPHOCYTES % 3.3 % (15.0-51.0); MEAN CORPUSCULAR HEMOGLOBIN 32.5 pg (29.0-33.0); MEAN CORPUSCULAR HGB CONC 31.3 g/dl (32.0-37.0); MEAN PLATELET VOLUME 10.5 fl (7.4-10.4); MONOCYTE # 0.2 10^3/ul (0.3-0.9); MONOCYTES % 0.9 % (0.0-11.0); NEUTROPHIL # 23.7 10^3/ul (1.6-7.5); NEUTROPHILS % 92.3 % (39.0-77.0); PLATELET COUNT 469 10^3/UL (140-415); RED BLOOD COUNT 2.77 10^6/ul (4.20-5.40); RED CELL DISTRIBUTION WIDTH 16.3 % (11.5-14.5); WHITE BLOOD COUNT 25.6 10^3/ul (4.8-10.8)
[2017-03-04] MEDS ORDERED: METHYLPREDNISOLONE 40 MG INJ IV SCH (09:00)
[2017-03-04 09:24] LABS: CALCIUM 9.4 mg/dl (8.4-10.2); CREATININE 0.6 mg/dl (0.44-1.00); POTASSIUM 4.8 mmol/L (3.5-5.1)
[2017-03-04] MEDS: CITALOPRAM 20 MG TAB GTB SCH (09:28)
[2017-03-04] MEDS: MULTIVITAMINS 5 ML CUP GTB SCH (09:30)
[2017-03-04] MEDS: METOPROLOL 100 MG TAB GTB SCH ×2 (09:30→22:11)
[2017-03-04] MEDS: CEFEPIME 1GM/50 ML (PMX) 50 ML IVPB SCH ×2 (09:30→22:08)
[2017-03-04] MEDS: L ACIDOPHIL/B LACTIS/B LONGUM CAPSULE PEG SCH ×2 (09:31→22:00)
[2017-03-04] MEDS: FLUTICASONE 0.05% 16 GM NAS SPRAY NASAL SCH ×2 (09:32→22:11)
[2017-03-04] MEDS: HEPARIN 5,000 UNIT/0.5 ML VIAL SC SCH ×2 (09:34→22:20)
--- NOTE | 2017-03-04 09:52 | PN ---
DATE: 03/04/2017 SUBJECTIVE: The patient is stable, no acute events overnight. No fevers, chills, nausea, vomiting. OBJECTIVE: VITAL SIGNS: Blood pressure 126/70, respirations 17, pulse 96, temperature 98.2. HEENT: Head is normocephalic. NECK: Supple. HEART: Regular rate. LUNGS: Show diminished breath sounds at the base. ABDOMEN: Soft, nontender to palpation without rebound or guarding. EXTREMITIES: Negative for clubbing, cyanosis, no edema. DERMATOLOGIC: No rashes. MUSCULOSKELETAL: No joint effusions. NEUROLOGIC: No change in exam. MEDICATIONS: The patient's medications have been reviewed. LABORATORY DATA: From March 03 was reviewed, showed a white count 19.3, hemoglobin 8.8. BNP reviewed . Laboratory data from is pending. ASSESSMENT AND PLAN: 1. Sepsis, etiology is felt secondary to pneumonia, healthcare-associated, possible colitis. The p atient's cultures have been negative to date. Currently the patient is on Flagyl and broad spectrum antibiotics. Will continue. Follow up Infectious Disease for further recommendations. The patient has been clinically improving. 2. Colitis. Underlying etiology is unclear. The patient is being ruled out for infection. Stool f or Clostridium difficile has been sent. We will follow up cultures. Continue empiric Flagyl. Foll ow up with GI. 3. Chronic respiratory failure, status post tracheostomy, currently stable. Continue current medic al management. 4. Dysphagia. Status post PEG tube, tube feed. 5. Leukocytosis, etiology is felt to be secondary to sepsis in conjunction with steroids. The keith ent's low white count has been trending down. Continue to monitor. 6. History of adrenal insufficiency. Continue to taper off Solu-Medrol. Will anticipate starting p rednisone tomorrow. 7. History of tongue cancer status post resection, no evidence of recurrence. 8. Paroxysmal atrial fibrillation, currently in sinus rhythm. 9. Hypothyroidism. Continue Synthroid. 10. History of diastolic heart failure, the patient is currently euvolemic. Continue to monitor. 11. History of critical care myopathy. 12. Diabetes. The patient's glucose levels have been elevated. Will change tube feedings to Diabet isource. Start the patient on long acting Lantus. Also expect glucose levels to improve as steroid s are being deescalated. 13. Gastrointestinal and deep venous thrombosis prophylaxis. Continue sequential leg squeezers, Pr evacid. 14. Depression. Continue Celexa. 15. Coronary artery disease. Continue medical management. 16. Previous history of cardiac arrest. Dictated By: NINA PEREIRA/BALDO Conf#: [id number] DID#: [id number]
--- NOTE | 2017-03-04 11:15 | CONS ---
Date/Time of Note Date/Time of Note DATE: 03/04/17 TIME: 11:14 Consult Date/Type/Reason Admit Date/Time March 01, 2017 at 10:51 Initial Consult Date 03/02/17 Type of Consultation: pulmonary Subjective Patient remains stable at present no respiratory distress Objective Vital Signs Date Time Temp Pulse Resp B/P Pulse Ox O2 Delivery O2 Flow Rate FiO2 03/04/17 08:41 87 03/04/17 08:14 5.0 28 03/04/17 08:14 20 97 Aerosol 03/04/17 07:39 97.4 129/68 Intake and Output 03/03/17 03/03/17 03/04/17 15:00 23:00 07:00 Intake Total 50 ml 1015 ml Balance 50 ml 1015 ml Exam PHYSICAL EXAMINATION: GENERAL: Elderly lady, awake, alert, currently in no distress. VITAL SIGNS: As above HEENT: Supple neck. No JVD, no lymphadenopathy. Midline trachea. clean insertion site. Pupils are mid size, reactive to light. CHEST: Bilateral wheezing. HEART: S1, S2 audible. No murmurs. Regular rhythm. ABDOMEN: Soft. G-tube in place. No organomegaly. Bowel sounds audible. EXTREMITIES: No peripheral edema. Pulses 1+ bilaterally. NEUROLOGIC: No focal deficit. Results/Medications Result Diagram: 03/04/17 0737 03/04/17 0737 Results 24 hrs Laboratory Tests Test 03/03/17 11:54 03/03/17 18:14 03/03/17 23:59 03/04/17 05:49 Bedside Glucose 267 H 148 168 224 H Test 03/04/17 07:37 White Blood Count 25.6 #H Red Blood Count 2.77 L Hemoglobin 9.0 L Hematocrit 28.8 L Mean Corpuscular Volume 104.0 H Mean Corpuscular Hemoglobin 32.5 Mean Corpuscular Hemoglobin Concent 31.3 L Red Cell Distribution Width 16.3 H Platelet Count 469 H Mean Platelet Volume 10.5 H Neutrophils % 92.3 H Lymphocytes % 3.3 L Monocytes % 0.9 Eosinophils % 0.0 Basophils % 0.3 Nucleated Red Blood Cells % 0.0 Neutrophils # 23.7 H Lymphocytes # 0.8 Monocytes # 0.2 L Eosinophils # 0.0 Basophils # 0.1 Nucleated Red Blood Cells # 0.0 Sodium Level 138 Potassium Level 4.8 Chloride Level 111 H Carbon Dioxide Level 23 Anion Gap 9 Blood Urea Nitrogen 30 H Creatinine 0.60 Glucose Level 209 Calcium Level 9.4 Phosphorus Level 3.0 Magnesium Level 2.0 Medications Current Medications Fluticasone Propionate (Flonase 0.05% Nasal) 1 spray BID NASAL Last administered on 03/04/17 09:32; Admin Dose 1 SPRAY; Start 03/01/17 at 21:00 Zolpidem Tartrate (Ambien) 5 mg QHS PRN PO INSOMNIA; Start 03/01/17 at 16:00 Lansoprazole (Prevacid) 30 mg DAILY@06 GTB Last administered on 03/04/17 05:51 ; Admin Dose 30 MG; Start 03/02/17 at 06:00 Multivitamins (Thera-Plus) 5 ml DAILY GTB Last administered on 03/04/17 09:30 ; Admin Dose 5 ML; Start 03/02/17 at 09:00 Ondansetron HCl (Zofran Inj) 4 mg Q6H PRN IV NAUSEA AND/OR VOMITING; Start at 16:00 Docusate Sodium (Colace) 100 mg Q12H PRN PO CONSTIPATION; Start 03/01/17 at 16: 00 Bisacodyl (Dulcolax Supp) 10 mg DAILY PRN [place] CONSTIPATION; Start 03/01/17 at 16 :00 Heparin Sodium (Porcine) (Heparin (5000 Units/0.5 ml)) 5,000 unit Q12 SC Last administered on 03/04/17 09:34; Admin Dose 5,000 UNIT; Start 03/01/17 at 21:00 Miscellaneous Information 1 ea NOTE XX ; Start 03/01/17 at 16:00 Glucose (Glutose) 15 gm Q15M PRN PO DECREASED GLUCOSE; Start 03/01/17 at 16:00 Glucose (Glutose) 22.5 gm Q15M PRN PO DECREASED GLUCOSE; Start 03/01/17 at 16: 00 Dextrose (D50w Syringe) 25 ml Q15M PRN IV DECREASED GLUCOSE; Start 03/01/17 at 16:00 Dextrose (D50w Syringe) 50 ml Q15M PRN IV DECREASED GLUCOSE; Start 03/01/17 at 16:00 Glucagon (Glucagen) 1 mg Q15M PRN IM DECREASED GLUCOSE; Start 03/01/17 at 16:00 Glucose (Glutose) 15 gm Q15M PRN BUCCAL DECREASED GLUCOSE; Start 03/01/17 at 16 :00 Insulin Aspart (Novolog Insulin Pen) (Adult SC Insulin - Mild Algorithm)... Q6 SC Last administered on 03/04/17 06:01; Admin Dose 3 UNIT; Start 03/02/17 at 00:00 Acetaminophen/ Hydrocodone Bitart ([place] (5/325)) 1 tab Q6H GTB Last administered on 03/04/17 08:30; Admin Dose 1 TAB; Start 03/01/17 at 20:30 Acetaminophen (Tylenol Tab) 650 mg Q6H PRN GTB PAIN AND OR ELEVATED TEMP; Start 03/01/17 at 22:00 Atorvastatin Calcium (Lipitor) 40 mg QHS GTB Last administered on 03/03/17 21: 27; Admin Dose 40 MG; Start 03/01/17 at 21:00 Citalopram Hydrobromide (Celexa) 20 mg DAILY GTB Last administered on 09:28; Admin Dose 20 MG; Start 03/02/17 at 09:00 Magnesium Hydroxide (Milk Of Mag) 30 ml DAILY PRN GTB CONSTIPATION; Start 03/01 at 20:30 Lactobacillus Acidophilus (Florajen3 Capsule) 1 each BID PEG Last administered on 03/04/17 09:31; Admin Dose 1 EACH; Start 03/01/17 at 21:00 Metoprolol Tartrate 100 mg 100 mg BID GTB Last administered on 03/04/17 09:30 ; Admin Dose 100 MG; Start 03/01/17 at 21:00 Metronidazole 100 ml @ 100 mls/hr Q8 IVPB Last administered on 03/04/17 05:51 ; Admin Dose 100 MLS/HR; Start 03/02/17 at 10:00 Cefepime HCl 50 ml @ 100 mls/hr Q12 IVPB Last administered on 03/04/17 09:30 ; Admin Dose 100 MLS/HR; Start 03/03/17 at 21:00 Vancomycin HCl/ Sodium Chloride (Vancocin/NS) 150 ml @ 75 mls/hr Q24H IVPB ; Start 03/04/17 at 14:00 Methylprednisolone Sodium Succinate (Solu-Medrol) 20 mg DAILY IV Last administered on 5/23/17at 09:30; Admin Dose 20 MG; Start 03/04/17 at 09:00 Insulin Glargine (Lantus) 4 unit QHS SC ; Start 03/04/17 at 21:00 Assessment/Plan Chief Complaint/Hosp Course Assessment 1. Chronic respiratory failure with tracheostomy 2. Likely acute tracheal bronchitis with persistent leukocytosis 3. Possible colitis based on CT abdomen cultures negative to date 4. History of tongue cancer 5. History of diabetes mellitus Plan 1. Continue antibiotics per ID recommendations 2. Continue supplemental O2 3. Continue trach site care 4. Aspiration precautions 5. Feeding as tolerated Disposition Continue current care Consider [facility] evaluation Problems: DARWIN CRAWFORD [facility] March 04, 2017 11:15
[2017-03-04] MEDS: INSULIN ASPART [NOVOLOG] 3 ML PEN SC SCH ×3 (12:24→21:00)
--- NOTE | 2017-03-04 14:37 | CONS ---
Date/Time of Note Date/Time of Note DATE: 03/04/17 TIME: 14:35 Assessment/Plan Assessment/Plan Chief Complaint/Hosp Course SUBJECTIVE: No acute changes. The patient is alert, feels better, no fevers, no diarrhea. MICROBIOLOGY: Cultures remain negative. INDWELLINGS: Trach, PEG, Latif. DIAGNOSTICS: CT of the abdomen and pelvis revealed bronchopneumonia with mild diffuse colonic wall thickening suggestive of mild diffuse colitis. ANTIMICROBIALS: The patient is on: 1. Flagyl. 2. Vancomycin. 3. Cefepime PHYSICAL EXAMINATION: GENERAL: This is a fragile, well-developed, elderly woman who is in no distress. HEENT: Head atraumatic, normocephalic. Sclerae anicteric. Buccal mucosa dry. NECK: Supple. Tracheostomy present. CHEST: Rise symmetrical. Breath sounds diminished to bases. HEART: S1, S2. ABDOMEN: Soft, bowel tones present. EXTREMITIES: No cyanosis. ASSESSMENT: 1. Sepsis with persistent leukocytosis. 2. Probable Clostridium difficile colitis as per CT of the abdomen and pelvis and chest. 3. Bibasilar bronchiolitis per chest CT concerning for bronchopneumonia. 4. Dysphagia. 5. Paroxysmal atrial fibrillation. 6. Diabetes. 7. History of tongue cancer. PLAN: Clinically doing better, continue abx, steroids taper. Follow recommendations of consultants. DW pt/ at bedside Problems: Consultation Date/Type/Reason Admit Date/Time March 01, 2017 at 10:51 Initial Consult Date 03/02/17 Type of Consultation: ID Exam/Review of Systems Vital Signs Vitals Vital Signs Date Time Temp Pulse Resp B/P Pulse Ox O2 Delivery O2 Flow Rate FiO2 03/04/17 14:16 91 20 96 Aerosol 5.0 28 03/04/17 11:39 97.5 130/64 Intake and Output 03/03/17 03/03/17 03/04/17 15:00 23:00 07:00 Intake Total 50 ml 1015 ml Balance 50 ml 1015 ml Results Result Diagram: 03/04/17 0737 03/04/17 0737 Results 24 hrs Laboratory Tests Test 03/03/17 18:14 03/03/17 23:59 03/04/17 05:49 03/04/17 07:37 Bedside Glucose 148 168 224 H White Blood Count 25.6 #H Red Blood Count 2.77 L Hemoglobin 9.0 L Hematocrit 28.8 L Mean Corpuscular Volume 104.0 H Mean Corpuscular Hemoglobin 32.5 Mean Corpuscular Hemoglobin Concent 31.3 L Red Cell Distribution Width 16.3 H Platelet Count 469 H Mean Platelet Volume 10.5 H Neutrophils % 92.3 H Lymphocytes % 3.3 L Monocytes % 0.9 Eosinophils % 0.0 Basophils % 0.3 Nucleated Red Blood Cells % 0.0 Neutrophils # 23.7 H Lymphocytes # 0.8 Monocytes # 0.2 L Eosinophils # 0.0 Basophils # 0.1 Nucleated Red Blood Cells # 0.0 Sodium Level 138 Potassium Level 4.8 Chloride Level 111 H Carbon Dioxide Level 23 Anion Gap 9 Blood Urea Nitrogen 30 H Creatinine 0.60 Glucose Level 209 Calcium Level 9.4 Phosphorus Level 3.0 Magnesium Level 2.0 Test 03/04/17 12:15 Bedside Glucose 172 Medications Medications Current Medications Fluticasone Propionate (Flonase 0.05% Nasal) 1 spray BID NASAL Last administered on 03/04/17 09:32; Admin Dose 1 SPRAY; Start 03/01/17 at 21:00 Zolpidem Tartrate (Ambien) 5 mg QHS PRN PO INSOMNIA; Start 03/01/17 at 16:00 Lansoprazole (Prevacid) 30 mg DAILY@06 GTB Last administered on 03/04/17 05:51 ; Admin Dose 30 MG; Start 03/02/17 at 06:00 Multivitamins (Thera-Plus) 5 ml DAILY GTB Last administered on 03/04/17 09:30 ; Admin Dose 5 ML; Start 03/02/17 at 09:00 Ondansetron HCl (Zofran Inj) 4 mg Q6H PRN IV NAUSEA AND/OR VOMITING; Start at 16:00 Docusate Sodium (Colace) 100 mg Q12H PRN PO CONSTIPATION; Start 03/01/17 at 16: 00 Bisacodyl (Dulcolax Supp) 10 mg DAILY PRN [place] CONSTIPATION; Start 03/01/17 at 16 :00 Heparin Sodium (Porcine) (Heparin (5000 Units/0.5 ml)) 5,000 unit Q12 SC Last administered on 03/04/17 09:34; Admin Dose 5,000 UNIT; Start 03/01/17 at 21:00 Miscellaneous Information 1 ea NOTE XX ; Start 03/01/17 at 16:00 Glucose (Glutose) 15 gm Q15M PRN PO DECREASED GLUCOSE; Start 03/01/17 at 16:00 Glucose (Glutose) 22.5 gm Q15M PRN PO DECREASED GLUCOSE; Start 03/01/17 at 16: 00 Dextrose (D50w Syringe) 25 ml Q15M PRN IV DECREASED GLUCOSE; Start 03/01/17 at 16:00 Dextrose (D50w Syringe) 50 ml Q15M PRN IV DECREASED GLUCOSE; Start 03/01/17 at 16:00 Glucagon (Glucagen) 1 mg Q15M PRN IM DECREASED GLUCOSE; Start 03/01/17 at 16:00 Glucose (Glutose) 15 gm Q15M PRN BUCCAL DECREASED GLUCOSE; Start 03/01/17 at 16 :00 Acetaminophen/ Hydrocodone Bitart ([place] (5/325)) 1 tab Q6H GTB Last administered on 03/04/17 08:30; Admin Dose 1 TAB; Start 03/01/17 at 20:30 Acetaminophen (Tylenol Tab) 650 mg Q6H PRN GTB PAIN AND OR ELEVATED TEMP; Start 03/01/17 at 22:00 Atorvastatin Calcium (Lipitor) 40 mg QHS GTB Last administered on 03/03/17 21: 27; Admin Dose 40 MG; Start 03/01/17 at 21:00 Citalopram Hydrobromide (Celexa) 20 mg DAILY GTB Last administered on 09:28; Admin Dose 20 MG; Start 03/02/17 at 09:00 Magnesium Hydroxide (Milk Of Mag) 30 ml DAILY PRN GTB CONSTIPATION; Start 03/01 at 20:30 Lactobacillus Acidophilus (Florajen3 Capsule) 1 each BID PEG Last administered on 03/04/17 09:31; Admin Dose 1 EACH; Start 03/01/17 at 21:00 Metoprolol Tartrate 100 mg 100 mg BID GTB Last administered on 03/04/17 09:30 ; Admin Dose 100 MG; Start 03/01/17 at 21:00 Metronidazole 100 ml @ 100 mls/hr Q8 IVPB Last administered on 03/04/17 05:51 ; Admin Dose 100 MLS/HR; Start 03/02/17 at 10:00 Cefepime HCl 50 ml @ 100 mls/hr Q12 IVPB Last administered on 03/04/17 09:30 ; Admin Dose 100 MLS/HR; Start 03/03/17 at 21:00 Vancomycin HCl/ Sodium Chloride (Vancocin/NS) 150 ml @ 75 mls/hr Q24H IVPB ; Start 03/04/17 at 14:00 Methylprednisolone Sodium Succinate (Solu-Medrol) 20 mg DAILY IV Last administered on 03/04/17 09:30; Admin Dose 20 MG; Start 03/04/17 at 09:00 Insulin Aspart (Novolog Insulin Pen) (Adult SC Insulin - Mild Algorithm)... Q4 SC Last administered on 03/04/17 12:24; Admin Dose 1 UNIT; Start 03/04/17 at 12:00 Insulin Glargine (Lantus) 7 unit QHS SC ; Start 03/04/17 at 21:00 LORETO MCKEON NP March 04, 2017 14:37
[2017-03-04] MEDS: VANCOMYCIN 750 MG in SOD CHLORIDE 0.9% 150 ML IVPB SCH (16:32)
--- NOTE | 2017-03-04 18:53 | CONS ---
Date/Time of Note Date/Time of Note DATE: 03/04/17 TIME: 18:52 Assessment/Plan Assessment/Plan Additional Assessment/Plan IMPRESSION: 1. Colitis, the etiology is unclear. All the cultures are pending 2. Respiratory failure, status post trach, on aerosol. 3. Sepsis, possible pneumonia, rule out urinary tract infection. 4. Dysphagia, status post percutaneous endoscopic gastrostomy. 5. Renal insufficiency. The patient is on Solu-Medrol. 6. History of tongue cancer. 7. Hypothyroidism. 8. Diabetes mellitus. 9. Depression. 10. Coronary artery disease. 11. Leukocytosis may be related to steroid Plan Awaiting stool culture report Continue present care Consultation Date/Type/Reason Admit Date/Time March 01, 2017 at 10:51 Initial Consult Date 03/02/17 Type of Consultation: ID [id number] HR Interval Summary Free Text/Dictation No abdominal pain No diarrhea no nausea no vomiting Exam/Review of Systems Vital Signs Vitals Vital Signs Date Time Temp Pulse Resp B/P Pulse Ox O2 Delivery O2 Flow Rate FiO2 03/04/17 16:53 97 03/04/17 14:16 20 96 Aerosol 5.0 28 03/04/17 11:39 97.5 130/64 Intake and Output 03/03/17 03/03/17 03/04/17 15:00 23:00 07:00 Intake Total 50 ml 1015 ml Balance 50 ml 1015 ml Exam Constitutional: alert, oriented, well developed Psych: nl mood/affect, no complaints Head: atraumatic, normocephalic Eyes: EOMI, PERRL, nl conjunctiva, nl lids, nl sclera ENMT: nl external ears & nose, nl lips & teeth, nl nasal mucosa & septum Neck: non-tender, supple Respiratory: clear to auscultation, normal air movement Cardiovascular: nl pulses, regular rate and rhythm Gastrointestinal: nl liver, spleen, non-tender, soft Musculoskeletal: nl extremities to inspection, nl gait and stance Extremities: normal pulses Neurological: GROUP DIRECTOR II-XII intact, nl mental status, nl speech, nl strength Skin: nl turgor, No rash or lesions Lymph: nl lymph nodes Results Result Diagram: 03/04/17 0737 03/04/17 0737 Results 24 hrs Laboratory Tests Test 03/03/17 23:59 03/04/17 05:49 03/04/17 07:37 03/04/17 12:15 Bedside Glucose 168 224 H 172 White Blood Count 25.6 #H Red Blood Count 2.77 L Hemoglobin 9.0 L Hematocrit 28.8 L Mean Corpuscular Volume 104.0 H Mean Corpuscular Hemoglobin 32.5 Mean Corpuscular Hemoglobin Concent 31.3 L Red Cell Distribution Width 16.3 H Platelet Count 469 H Mean Platelet Volume 10.5 H Neutrophils % 92.3 H Lymphocytes % 3.3 L Monocytes % 0.9 Eosinophils % 0.0 Basophils % 0.3 Nucleated Red Blood Cells % 0.0 Neutrophils # 23.7 H Lymphocytes # 0.8 Monocytes # 0.2 L Eosinophils # 0.0 Basophils # 0.1 Nucleated Red Blood Cells # 0.0 Sodium Level 138 Potassium Level 4.8 Chloride Level 111 H Carbon Dioxide Level 23 Anion Gap 9 Blood Urea Nitrogen 30 H Creatinine 0.60 Glucose Level 209 Calcium Level 9.4 Phosphorus Level 3.0 Magnesium Level 2.0 Test 03/04/17 18:38 Bedside Glucose 162 Medications Medications Current Medications Fluticasone Propionate (Flonase 0.05% Nasal) 1 spray BID NASAL Last administered on 03/04/17 09:32; Admin Dose 1 SPRAY; Start 03/01/17 at 21:00 Zolpidem Tartrate (Ambien) 5 mg QHS PRN PO INSOMNIA; Start 03/01/17 at 16:00 Lansoprazole (Prevacid) 30 mg DAILY@06 GTB Last administered on 03/04/17 05:51 ; Admin Dose 30 MG; Start 03/02/17 at 06:00 Multivitamins (Thera-Plus) 5 ml DAILY GTB Last administered on 03/04/17 09:30 ; Admin Dose 5 ML; Start 03/02/17 at 09:00 Ondansetron HCl (Zofran Inj) 4 mg Q6H PRN IV NAUSEA AND/OR VOMITING; Start at 16:00 Docusate Sodium (Colace) 100 mg Q12H PRN PO CONSTIPATION; Start 03/01/17 at 16: 00 Bisacodyl (Dulcolax Supp) 10 mg DAILY PRN [place] CONSTIPATION; Start 03/01/17 at 16 :00 Heparin Sodium (Porcine) (Heparin (5000 Units/0.5 ml)) 5,000 unit Q12 SC Last administered on 03/04/17 09:34; Admin Dose 5,000 UNIT; Start 03/01/17 at 21:00 Miscellaneous Information 1 ea NOTE XX ; Start 03/01/17 at 16:00 Glucose (Glutose) 15 gm Q15M PRN PO DECREASED GLUCOSE; Start 03/01/17 at 16:00 Glucose (Glutose) 22.5 gm Q15M PRN PO DECREASED GLUCOSE; Start 03/01/17 at 16: 00 Dextrose (D50w Syringe) 25 ml Q15M PRN IV DECREASED GLUCOSE; Start 03/01/17 at 16:00 Dextrose (D50w Syringe) 50 ml Q15M PRN IV DECREASED GLUCOSE; Start 03/01/17 at 16:00 Glucagon (Glucagen) 1 mg Q15M PRN IM DECREASED GLUCOSE; Start 03/01/17 at 16:00 Glucose (Glutose) 15 gm Q15M PRN BUCCAL DECREASED GLUCOSE; Start 03/01/17 at 16 :00 Acetaminophen/ Hydrocodone Bitart ([place] (5/325)) 1 tab Q6H GTB Last administered on 03/04/17 15:22; Admin Dose 1 TAB; Start 03/01/17 at 20:30 Acetaminophen (Tylenol Tab) 650 mg Q6H PRN GTB PAIN AND OR ELEVATED TEMP; Start 03/01/17 at 22:00 Atorvastatin Calcium (Lipitor) 40 mg QHS GTB Last administered on 03/03/17 21: 27; Admin Dose 40 MG; Start 03/01/17 at 21:00 Citalopram Hydrobromide (Celexa) 20 mg DAILY GTB Last administered on 09:28; Admin Dose 20 MG; Start 03/02/17 at 09:00 Magnesium Hydroxide (Milk Of Mag) 30 ml DAILY PRN GTB CONSTIPATION; Start 03/01 at 20:30 Lactobacillus Acidophilus (Florajen3 Capsule) 1 each BID PEG Last administered on 03/04/17 09:31; Admin Dose 1 EACH; Start 03/01/17 at 21:00 Metoprolol Tartrate 100 mg 100 mg BID GTB Last administered on 03/04/17 09:30 ; Admin Dose 100 MG; Start 03/01/17 at 21:00 Metronidazole 100 ml @ 100 mls/hr Q8 IVPB Last administered on 03/04/17 15:26 ; Admin Dose 100 MLS/HR; Start 03/02/17 at 10:00 Cefepime HCl 50 ml @ 100 mls/hr Q12 IVPB Last administered on 03/04/17 09:30 ; Admin Dose 100 MLS/HR; Start 03/03/17 at 21:00 Vancomycin HCl/ Sodium Chloride (Vancocin/NS) 150 ml @ 75 mls/hr Q24H IVPB Last administered on 03/04/17 16:32; Admin Dose 75 MLS/HR; Start 03/04/17 at 14 :00 Methylprednisolone Sodium Succinate (Solu-Medrol) 20 mg DAILY IV Last administered on 03/04/17 09:30; Admin Dose 20 MG; Start 03/04/17 at 09:00 Insulin Aspart (Novolog Insulin Pen) (Adult SC Insulin - Mild Algorithm)... Q4 SC Last administered on 03/04/17 18:42; Admin Dose 1 UNIT; Start 03/04/17 at 12:00 Insulin Glargine (Lantus) 7 unit QHS SC ; Start 03/04/17 at 21:00 ALYSSA THOMPSON MD March 04, 2017 18:53
--- NOTE | 2017-03-04 19:01 | PN ---
DATE: 03/04/2017 CARDIOLOGY FOLLOWUP SUBJECTIVE: The patient has atrial fibrillation, coronary artery disease, chest pain. The patient denies palpitations to me. Still has cough. MEDICATIONS: Reviewed. PHYSICAL EXAMINATION: VITAL SIGNS: Temperature 97.5, heart rate of 91, blood pressure 130/64, respiration rate of 20, sat urating 96%. HEENT: Normocephalic, atraumatic. Pleasant____female in no acute distress ____. Eyes, pupils equal and round. NECK: Supple trach, on oxygen. CARDIOVASCULAR: Regular rate and rhythm with systolic murmur. PULMONARY: Diffuse rhonchi. GASTROINTESTINAL: Soft, nontender. EXTREMITIES: With trivial lower extremity edema. NEUROLOGIC: Awake, responds appropriately. PSYCHIATRIC: Appears to be calm and pleasant. LABORATORY: WBC of 25.6, hemoglobin 9.0, platelets of 469. Sodium 138, potassium 4.8, BUN of 30, c reatinine 0.8, glucose ____. ASSESSMENT AND PLAN: 1. Paroxysmal atrial fibrillation, currently back in sinus rhythm. 2. Hypoxemia and hypercapnic respiratory failure, status post tracheostomy ____. 3. History of possible sepsis. 4. Severe leukocytosis. 5. Possible colitis. 6. Renal insufficiency. 7. History of thyroid disorder, on Synthroid. 8. History of congestive heart failure, fluid overload, currently appears to be stable. 9. Diabetes. RECOMMENDATIONS: Will correct the electrolytes including potassium and magnesium p.r.n. Steroid as per internal medicine. Antibiotic as per internal medicine and ID recommendation. Continue with t he respiratory care. Thyroid supplement will be continued. I will continue with the beta shanta, statin will be continued as well. Continue to closely monitor on telemetry. Diuresis will be given as needed. Dictated By: FRANCISCO BRIGGS/BALDO Conf#: [id number] DID#: [id number]
[2017-03-04] MEDS ORDERED: INSULIN GLARGINE [LANtus] 3 ML PEN SC SCH ×2 (21:00)
[2017-03-04] MEDS: ATORVASTATIN 40 MG TAB GTB SCH (22:10)
[2017-03-05] VITALS (10 sets, daily range): BP systolic 123–143; BP diastolic 62–85; PULSE 73–89; RESP 17–18
[2017-03-05] MEDS: LEVALBUTEROL (NEB) 1.25 MG/0.5 ML AMP HHN SCH ×4 (01:23→20:15)
[2017-03-05] MEDS: HYDROCODONE/APAP (5/325) TAB GTB SCH ×4 (02:00→10:32)
[2017-03-05] MEDS: INSULIN ASPART [NOVOLOG] 3 ML PEN SC SCH ×6 (02:00→21:00)
[2017-03-05] MEDS: LEVOTHYROXINE 75 MCG TAB GTB SCH (05:01)
[2017-03-05] MEDS: metroNIDAZOLE 500 MG/NS (PMX) 100 ML IVPB SCH ×3 (05:01→22:08)
[2017-03-05] MEDS: LANSOPRAZOLE 30 MG CAP GTB SCH (05:01)
[2017-03-05 07:25] LABS: ADD SCAN DIFF NO
[2017-03-05 07:47] LABS: ABNORMAL IP MESSAGE 1; BASOPHIL # 0.1 10^3/ul (0.0-0.1); BASOPHILS % 0.3 % (0.0-2.0); EOSINOPHILS % 0.1 % (0.0-7.0); HEMATOCRIT 30.3 % (37.0-47.0); HEMOGLOBIN 9.5 g/dl (12.0-16.0); LYMPHOCYTES # 2.3 10^3/ul (0.8-2.9); LYMPHOCYTES % 10.1 % (15.0-51.0); MEAN CORPUSCULAR HEMOGLOBIN 31.5 pg (29.0-33.0); MEAN CORPUSCULAR HGB CONC 31.4 g/dl (32.0-37.0); MEAN CORPUSCULAR VOLUME 100.3 fl (82.0-101.0); MEAN PLATELET VOLUME 10.3 fl (7.4-10.4); MONOCYTE # 1.3 10^3/ul (0.3-0.9); MONOCYTES % 5.5 % (0.0-11.0); NEUTROPHIL # 17.9 10^3/ul (1.6-7.5); NEUTROPHILS % 77.5 % (39.0-77.0); NUCLEATED RED BLOOD CELLS% 0.1 /100WBC (0.0-0.0); PLATELET COUNT 495 10^3/UL (140-415); RED BLOOD COUNT 3.02 10^6/ul (4.20-5.40); RED CELL DISTRIBUTION WIDTH 16.7 % (11.5-14.5); WHITE BLOOD COUNT 23.1 10^3/ul (4.8-10.8)
[2017-03-05 08:21] LABS: POTASSIUM 4.2 mmol/L (3.5-5.1)
[2017-03-05 08:23] LABS: CREATININE 0.58 mg/dl (0.44-1.00)
[2017-03-05 08:24] LABS: CALCIUM 9.2 mg/dl (8.4-10.2); PHOSPHORUS 2.9 mg/dl (2.5-4.9)
--- NOTE | 2017-03-05 09:59 | PN ---
DATE: 03/05/2017 SUBJECTIVE: The patient is stable, no acute events overnight. No fevers, chills, nausea, vomiting, no shortness breath. OBJECTIVE: VITAL SIGNS: Blood pressure 122/62, respirations 18, pulse 84, temperature 98.1. HEENT: Head is normocephalic. NECK: Supple. HEART: Regular rate. LUNGS: Show diminished breath sounds at base. ABDOMEN: Soft, nontender to palpation. No rebound or guarding. EXTREMITIES: Negative for clubbing, cyanosis. No edema. DERMATOLOGIC: No rashes. MUSCULOSKELETAL: No joint effusions. NEUROLOGIC: No change in exam. MEDICATIONS: Reviewed. LABORATORY DATA: Shows a sodium 138, potassium 4.8, chloride 111, BUN 13, creatinine 0.60. White c ount , hemoglobin 9.0, hematocrit 28.8, platelet count 469. Please note these laboratory data are from 03/04/2017. 03/05/2017 laboratory data is pending. Patient's cultures have been negative to date. ASSESSMENT AND PLAN: 1. Sepsis: Etiology felt to be secondary to pneumonia, possible colitis. Patient's cultures have been negative to date. Currently waiting for C. diff culture. Will continue broad spectrum antibio tics, continue Flagyl. We will follow up cultures. Follow up with Infectious Disease. 2. Colitis: Etiology is unclear, possibly infectious. The patient is being ruled out for C. diffi cile. Stool is currently pending. Continue empiric Flagyl. Follow up with GI. 3. Chronic respiratory failure status post trach: Currently stable. Continue to monitor. 4. Dysphagia: Status post PEG tube. Continue tube feeds. 5. Leukocytosis: Etiology is felt secondary to sepsis in conjunction with steroids, questionable C . difficile. Continue to taper off prednisone. Continue antibiotic therapy. 6. History of adrenal insufficiency: Will resume patient on low-dose prednisone 10 mg daily. 7. History of tongue cancer: Status post resection. No evidence of recurrence. 8. Paroxysmal atrial fibrillation: Currently in sinus rhythm. 9. Hypothyroidism. Continue Synthroid. 10. History of diastolic heart failure: Currently euvolemic. Continue to monitor. 11. History of critical care myopathy. 12. Diabetes: The patient's glucose levels are improved. Continue Lantus. Continue Diabetisource . 13. Gastrointestinal and deep venous thrombosis prophylaxis: Continue PPI, sequential leg squeezer s. 14. Depression: Continue Celexa. 15. Coronary artery disease: Continue medical management. 16. History of cardiac arrest. Dictated By: NINA PEREIRA/BALDO Conf#: [id number] DID#: [id number]
[2017-03-05] MEDS: FLUTICASONE 0.05% 16 GM NAS SPRAY NASAL SCH ×2 (10:14→21:27)
[2017-03-05] MEDS: CITALOPRAM 20 MG TAB GTB SCH (10:14)
[2017-03-05] MEDS: predniSONE 10 MG TAB NGT SCH (10:14)
[2017-03-05] MEDS: METOPROLOL 100 MG TAB GTB SCH ×2 (10:15→21:27)
[2017-03-05] MEDS: MULTIVITAMINS 5 ML CUP GTB SCH (10:15)
[2017-03-05] MEDS: L ACIDOPHIL/B LACTIS/B LONGUM CAPSULE PEG SCH ×2 (10:22→21:26)
[2017-03-05] MEDS: CEFEPIME 1GM/50 ML (PMX) 50 ML IVPB SCH ×2 (10:23→22:07)
[2017-03-05] MEDS: HEPARIN 5,000 UNIT/0.5 ML VIAL SC SCH ×2 (10:24→21:36)
--- NOTE | 2017-03-05 10:36 | PN ---
DATE: 03/05/2017 CARDIOLOGY FOLLOWUP SUBJECTIVE: Discussed with the staff. Discussed with the patient's . The patient has had e pisodes of atrial fibrillation with rapid ventricular response yesterday; however, she denies any sy mptoms of palpitations with it. Currently back in sinus rhythm. Denies any chest pain or pressure to me. Still has a moderate amount of secretions. Discussed with Dr. Valderrama. Rhythm strip was r eviewed. MEDICATIONS: Reviewed. PHYSICAL EXAMINATION: VITAL SIGNS: Temperature 98.1, heart rate of 84, blood pressure 123/62, respiration rate of 18, sat urating 98% on 5 liters . T-tube. HEENT: Normocephalic, atraumatic. No acute distress. Eyes: Pupils equal and round. NECK: Supple. Tracheostomy on oxygen. CARDIOVASCULAR: Regular rate and rhythm now, systolic murmur. PULMONARY: Mild rhonchi, diffuse. GASTROINTESTINAL: Soft, nontender. No rebound. EXTREMITIES: With positive lower extremity edema. NEUROLOGIC: Awake, responds appropriately. PSYCHIATRIC: Appeared to be calm and very pleasant. LABORATORY DATA: WBC of 23.1, hemoglobin 9.5, platelets of 495. Glucose 118. ASSESSMENT AND PLAN: 1. Paroxysmal atrial fibrillation, currently back in sinus rhythm. Continue to monitor closely. 2. Hypoxemic and hypercapnic respiratory failure, status post tracheostomy, currently on the , tolerated. 3. Sepsis and leukocytosis. 4. Possible colitis. 5. Renal insufficiency. 6. History of thyroid disorder, currently on Synthroid, stable. 7. Congestive heart failure and fluid overload, currently appears to be euvolemic. 8. Diabetes. RECOMMENDATIONS: Steroid management as per internal medicine. We will continue with diabetic contr ol. Antibiotic management as per ID recommendation. Respiratory care and trach care will be contin ued. Thyroid supplement will be continued as well. Statins will be continued. We will continue wi th the patient on beta shanta. Electrolytes including potassium and magnesium will be checked airam odically and corrected as needed. Continue to monitor on telemetry. Dictated By: FRANCISCO BLACKWOOD MD AV/BALDO Conf#: [id number] DID#: [id number] CC: NINA VALDERRAMA DO;*EndCC*
--- NOTE | 2017-03-05 13:00 | PN ---
DATE: 03/05/2017 INFECTIOUS DISEASE PROGRESS NOTE SUBJECTIVE: No acute changes. The patient is lying comfortably in bed. She is afebrile. WBC 23.1 , platelets 495, neutrophils 77.5, BUN 34, creatinine 0.58. ANTIMICROBIALS: The patient is on: 1. Vancomycin. 2. Cefepime. 3. Flagyl. INDWELLINGS: Trach, PEG, Latif. PHYSICAL EXAMINATION: GENERAL: This is a well-developed, chronically ill-appearing, elderly woman who is in no distress. HEENT: Head atraumatic, normocephalic. Sclerae anicteric. Buccal mucosa dry. NECK: Supple. Tracheostomy present. CHEST: Rise symmetrical. Breath sounds diminished to bases. HEART: S1, S2. ABDOMEN: Soft, bowel sounds present. EXTREMITIES: No cyanosis. ASSESSMENT: 1. Sepsis with leukocytosis and acute encephalopathy on admission, status post fevers. 2. Acute colitis, remains on Flagyl. 3. Bilateral bronchopneumonia. 4. Diabetes. 5. History of tongue cancer. 6. Chronic respiratory failure. PLAN: The patient remains stable on appropriate antimicrobials, pending sputum cultures. Follow [place] stroenterology, pulmonary recommendations. Dictated By: LORETO MCKEON ALGORITHM DESIGN ENGINEER for MARY LEONARDO/NTS Conf#: [id number] DID#: [id number]
[2017-03-05] MEDS: VANCOMYCIN 750 MG in SOD CHLORIDE 0.9% 150 ML IVPB SCH ×2 (14:00→20:08)
--- NOTE | 2017-03-05 16:51 | CONS ---
Date/Time of Note Date/Time of Note DATE: 03/05/17 TIME: 16:51 Consult Date/Type/Reason Admit Date/Time March 01, 2017 at 10:51 Initial Consult Date 03/02/17 Type of Consultation: Pulmonary Subjective Patient awake alert and oriented comfortable on cool aerosol Objective Vital Signs Date Time Temp Pulse Resp B/P Pulse Ox O2 Delivery O2 Flow Rate FiO2 03/05/17 15:42 98.0 91 18 143/85 98 03/05/17 13:55 Aerosol 5.0 28 T Tube Intake and Output 03/04/17 03/04/17 03/05/17 15:00 23:00 07:00 Intake Total 850 ml 1230 ml 1080 ml Balance 850 ml 1230 ml 1080 ml Exam PHYSICAL EXAMINATION: GENERAL: Elderly lady, awake, alert, currently in no distress. VITAL SIGNS: As above HEENT: Supple neck. No JVD, no lymphadenopathy. Midline trachea. clean insertion site. Pupils are mid size, reactive to light. CHEST: Bilateral wheezing. HEART: S1, S2 audible. No murmurs. Regular rhythm. ABDOMEN: Soft. G-tube in place. No organomegaly. Bowel sounds audible. EXTREMITIES: No peripheral edema. Pulses 1+ bilaterally. NEUROLOGIC: No focal deficit. Results/Medications Result Diagram: 03/05/17 0636 03/05/17 0636 Results 24 hrs Laboratory Tests Test 03/04/17 18:38 03/04/17 20:26 03/05/17 02:18 03/05/17 05:08 Bedside Glucose 162 157 125 118 Test 03/05/17 06:36 03/05/17 10:21 03/05/17 12:11 White Blood Count 23.1 H Red Blood Count 3.02 L Hemoglobin 9.5 L Hematocrit 30.3 L Mean Corpuscular Volume 100.3 Mean Corpuscular Hemoglobin 31.5 Mean Corpuscular Hemoglobin Concent 31.4 L Red Cell Distribution Width 16.7 H Platelet Count 495 H Mean Platelet Volume 10.3 Neutrophils % 77.5 H Lymphocytes % 10.1 L Monocytes % 5.5 Eosinophils % 0.1 Basophils % 0.3 Nucleated Red Blood Cells % 0.1 H Neutrophils # 17.9 H Lymphocytes # 2.3 Monocytes # 1.3 H Eosinophils # 0.0 Basophils # 0.1 Nucleated Red Blood Cells # 0.0 Sodium Level 138 Potassium Level 4.2 Chloride Level 106 Carbon Dioxide Level 25 Anion Gap 11 Blood Urea Nitrogen 34 H Creatinine 0.58 Glucose Level 109 # Calcium Level 9.2 Phosphorus Level 2.9 Magnesium Level 2.0 Bedside Glucose 108 124 Medications Current Medications Fluticasone Propionate (Flonase 0.05% Nasal) 1 spray BID NASAL Last administered on 03/05/17 10:14; Admin Dose 1 SPRAY; Start 03/01/17 at 21:00 Zolpidem Tartrate (Ambien) 5 mg QHS PRN PO INSOMNIA; Start 03/01/17 at 16:00 Lansoprazole (Prevacid) 30 mg DAILY@06 GTB Last administered on 03/05/17 05:01 ; Admin Dose 30 MG; Start 03/02/17 at 06:00 Multivitamins (Thera-Plus) 5 ml DAILY GTB Last administered on 03/05/17 10:15 ; Admin Dose 5 ML; Start 03/02/17 at 09:00 Ondansetron HCl (Zofran Inj) 4 mg Q6H PRN IV NAUSEA AND/OR VOMITING; Start at 16:00 Docusate Sodium (Colace) 100 mg Q12H PRN PO CONSTIPATION; Start 03/01/17 at 16: 00 Bisacodyl (Dulcolax Supp) 10 mg DAILY PRN [place] CONSTIPATION; Start 03/01/17 at 16 :00 Heparin Sodium (Porcine) (Heparin (5000 Units/0.5 ml)) 5,000 unit Q12 SC Last administered on 03/05/17 10:24; Admin Dose 5,000 UNIT; Start 03/01/17 at 21:00 Miscellaneous Information 1 ea NOTE XX ; Start 03/01/17 at 16:00 Glucose (Glutose) 15 gm Q15M PRN PO DECREASED GLUCOSE; Start 03/01/17 at 16:00 Glucose (Glutose) 22.5 gm Q15M PRN PO DECREASED GLUCOSE; Start 03/01/17 at 16: 00 Dextrose (D50w Syringe) 25 ml Q15M PRN IV DECREASED GLUCOSE; Start 03/01/17 at 16:00 Dextrose (D50w Syringe) 50 ml Q15M PRN IV DECREASED GLUCOSE; Start 03/01/17 at 16:00 Glucagon (Glucagen) 1 mg Q15M PRN IM DECREASED GLUCOSE; Start 03/01/17 at 16:00 Glucose (Glutose) 15 gm Q15M PRN BUCCAL DECREASED GLUCOSE; Start 03/01/17 at 16 :00 Acetaminophen/ Hydrocodone Bitart ([place] (5/325)) 1 tab Q6H GTB Last administered on 03/05/17 10:32; Admin Dose 1 TAB; Start 03/01/17 at 20:30 Acetaminophen (Tylenol Tab) 650 mg Q6H PRN GTB PAIN AND OR ELEVATED TEMP; Start 03/01/17 at 22:00 Atorvastatin Calcium (Lipitor) 40 mg QHS GTB Last administered on 03/04/17 22: 10; Admin Dose 40 MG; Start 03/01/17 at 21:00 Citalopram Hydrobromide (Celexa) 20 mg DAILY GTB Last administered on 10:14; Admin Dose 20 MG; Start 03/02/17 at 09:00 Magnesium Hydroxide (Milk Of Mag) 30 ml DAILY PRN GTB CONSTIPATION; Start 03/01 at 20:30 Lactobacillus Acidophilus (Florajen3 Capsule) 1 each BID PEG Last administered on 03/05/17 10:22; Admin Dose 1 EACH; Start 03/01/17 at 21:00 Metoprolol Tartrate 100 mg 100 mg BID GTB Last administered on 03/05/17 10:15 ; Admin Dose 100 MG; Start 03/01/17 at 21:00 Metronidazole 100 ml @ 100 mls/hr Q8 IVPB Last administered on 03/05/17 14:51 ; Admin Dose 100 MLS/HR; Start 03/02/17 at 10:00 Cefepime HCl 50 ml @ 100 mls/hr Q12 IVPB Last administered on 03/05/17 10:23 ; Admin Dose 100 MLS/HR; Start 03/03/17 at 21:00 Vancomycin HCl/ Sodium Chloride (Vancocin/NS) 150 ml @ 75 mls/hr Q24H IVPB Last administered on 03/04/17 16:32; Admin Dose 75 MLS/HR; Start 03/04/17 at 14 :00 Insulin Aspart (Novolog Insulin Pen) (Adult SC Insulin - Mild Algorithm)... Q4 SC Last administered on 03/04/17 18:42; Admin Dose 1 UNIT; Start 03/04/17 at 12:00 Insulin Glargine (Lantus) 7 unit QHS SC Last administered on 03/04/17 22:19; Admin Dose 7 UNIT; Start 03/04/17 at 21:00; Status Future Hold Prednisone (Prednisone) 10 mg DAILY NGT Last administered on 03/05/17 10:14; Admin Dose 10 MG; Start 03/05/17 at 09:00 Miscellaneous Information (*Rx Drug Level Order Reminder*) VANCOMYCIN TROUGH LEVEL... ONCE ONCE XX ; Start 03/06/17 at 13:00; Stop 03/06/17 at 13:01 Assessment/Plan Chief Complaint/Hosp Course Assessment 1. Chronic respiratory failure with tracheostomy 2. Likely acute tracheal bronchitis with persistent leukocytosis 3. Possible colitis based on CT abdomen cultures negative to date 4. History of tongue cancer 5. History of diabetes mellitus Plan 1. Continue antibiotics per ID recommendations 2. Continue supplemental O2 3. Continue trach site care 4. Aspiration precautions 5. Feeding as tolerated Disposition Continue current care Consider [facility] evaluation Problems: DARWIN CRAWFORD MD, [facility] March 05, 2017 16:51
--- NOTE | 2017-03-05 18:59 | CONS ---
Date/Time of Note Date/Time of Note DATE: 03/05/17 TIME: 18:57 Assessment/Plan Assessment/Plan Additional Assessment/Plan Additional Assessment/Plan IMPRESSION: 1. Colitis, the etiology is unclear. All the cultures are pending 2. Respiratory failure, status post trach, on aerosol. 3. Sepsis, possible pneumonia, rule out urinary tract infection. 4. Dysphagia, status post percutaneous endoscopic gastrostomy. 5. Renal insufficiency. The patient is on Solu-Medrol. 6. History of tongue cancer. 7. Hypothyroidism. 8. Diabetes mellitus. 9. Depression. 10. Coronary artery disease. 11. Leukocytosis may be related to steroid Plan Awaiting stool culture report Continue present care Stool for occult blood was reported negative Consultation Date/Type/Reason Admit Date/Time March 01, 2017 at 10:51 Initial Consult Date 03/02/17 Type of Consultation: Pulmonary 24 HR Interval Summary Free Text/Dictation No abdominal pain no nausea no vomiting Exam/Review of Systems Vital Signs Vitals Vital Signs Date Time Temp Pulse Resp B/P Pulse Ox O2 Delivery O2 Flow Rate FiO2 03/05/17 18:34 98 5.0 28 03/05/17 16:25 87 03/05/17 15:42 98.0 18 143/85 03/05/17 13:55 Aerosol T Tube Intake and Output 03/04/17 03/04/17 03/05/17 15:00 23:00 07:00 Intake Total 850 ml 1230 ml 1080 ml Balance 850 ml 1230 ml 1080 ml Exam Constitutional: alert, oriented, well developed Psych: nl mood/affect, no complaints Head: atraumatic, normocephalic Eyes: EOMI, PERRL, nl conjunctiva, nl lids, nl sclera ENMT: nl external ears & nose, nl lips & teeth, nl nasal mucosa & septum Neck: non-tender, supple Respiratory: clear to auscultation, normal air movement Cardiovascular: nl pulses, regular rate and rhythm Gastrointestinal: nl liver, spleen, non-tender, soft Musculoskeletal: nl extremities to inspection, nl gait and stance Extremities: normal pulses Neurological: MANAGER MINING II-XII intact, nl mental status, nl speech, nl strength Skin: nl turgor, No rash or lesions Lymph: nl lymph nodes Results Result Diagram: 03/05/17 0636 03/05/17 0636 Results 24 hrs Laboratory Tests Test 03/04/17 20:26 03/05/17 02:18 03/05/17 05:08 03/05/17 06:36 Bedside Glucose 157 125 118 White Blood Count 23.1 H Red Blood Count 3.02 L Hemoglobin 9.5 L Hematocrit 30.3 L Mean Corpuscular Volume 100.3 Mean Corpuscular Hemoglobin 31.5 Mean Corpuscular Hemoglobin Concent 31.4 L Red Cell Distribution Width 16.7 H Platelet Count 495 H Mean Platelet Volume 10.3 Neutrophils % 77.5 H Lymphocytes % 10.1 L Monocytes % 5.5 Eosinophils % 0.1 Basophils % 0.3 Nucleated Red Blood Cells % 0.1 H Neutrophils # 17.9 H Lymphocytes # 2.3 Monocytes # 1.3 H Eosinophils # 0.0 Basophils # 0.1 Nucleated Red Blood Cells # 0.0 Sodium Level 138 Potassium Level 4.2 Chloride Level 106 Carbon Dioxide Level 25 Anion Gap 11 Blood Urea Nitrogen 34 H Creatinine 0.58 Glucose Level 109 # Calcium Level 9.2 Phosphorus Level 2.9 Magnesium Level 2.0 Test 03/05/17 10:21 03/05/17 12:11 03/05/17 17:22 Bedside Glucose 108 124 149 Medications Medications Current Medications Fluticasone Propionate (Flonase 0.05% Nasal) 1 spray BID NASAL Last administered on 03/05/17 10:14; Admin Dose 1 SPRAY; Start 03/01/17 at 21:00 Zolpidem Tartrate (Ambien) 5 mg QHS PRN PO INSOMNIA; Start 03/01/17 at 16:00 Lansoprazole (Prevacid) 30 mg DAILY@06 GTB Last administered on 03/05/17 05:01 ; Admin Dose 30 MG; Start 03/02/17 at 06:00 Multivitamins (Thera-Plus) 5 ml DAILY GTB Last administered on 03/05/17 10:15 ; Admin Dose 5 ML; Start 03/02/17 at 09:00 Ondansetron HCl (Zofran Inj) 4 mg Q6H PRN IV NAUSEA AND/OR VOMITING; Start at 16:00 Docusate Sodium (Colace) 100 mg Q12H PRN PO CONSTIPATION; Start 03/01/17 at 16: 00 Bisacodyl (Dulcolax Supp) 10 mg DAILY PRN [place] CONSTIPATION; Start 03/01/17 at 16 :00 Heparin Sodium (Porcine) (Heparin (5000 Units/0.5 ml)) 5,000 unit Q12 SC Last administered on 03/05/17 10:24; Admin Dose 5,000 UNIT; Start 03/01/17 at 21:00 Miscellaneous Information 1 ea NOTE XX ; Start 03/01/17 at 16:00 Glucose (Glutose) 15 gm Q15M PRN PO DECREASED GLUCOSE; Start 03/01/17 at 16:00 Glucose (Glutose) 22.5 gm Q15M PRN PO DECREASED GLUCOSE; Start 03/01/17 at 16: 00 Dextrose (D50w Syringe) 25 ml Q15M PRN IV DECREASED GLUCOSE; Start 03/01/17 at 16:00 Dextrose (D50w Syringe) 50 ml Q15M PRN IV DECREASED GLUCOSE; Start 03/01/17 at 16:00 Glucagon (Glucagen) 1 mg Q15M PRN IM DECREASED GLUCOSE; Start 03/01/17 at 16:00 Glucose (Glutose) 15 gm Q15M PRN BUCCAL DECREASED GLUCOSE; Start 03/01/17 at 16 :00 Acetaminophen/ Hydrocodone Bitart ([place] (5/325)) 1 tab Q6H GTB Last administered on 03/05/17 10:32; Admin Dose 1 TAB; Start 03/01/17 at 20:30 Acetaminophen (Tylenol Tab) 650 mg Q6H PRN GTB PAIN AND OR ELEVATED TEMP; Start 03/01/17 at 22:00 Atorvastatin Calcium (Lipitor) 40 mg QHS GTB Last administered on 03/04/17 22: 10; Admin Dose 40 MG; Start 03/01/17 at 21:00 Citalopram Hydrobromide (Celexa) 20 mg DAILY GTB Last administered on 10:14; Admin Dose 20 MG; Start 03/02/17 at 09:00 Magnesium Hydroxide (Milk Of Mag) 30 ml DAILY PRN GTB CONSTIPATION; Start 03/01 at 20:30 Lactobacillus Acidophilus (Florajen3 Capsule) 1 each BID PEG Last administered on 03/05/17 10:22; Admin Dose 1 EACH; Start 03/01/17 at 21:00 Metoprolol Tartrate 100 mg 100 mg BID GTB Last administered on 03/05/17 10:15 ; Admin Dose 100 MG; Start 03/01/17 at 21:00 Metronidazole 100 ml @ 100 mls/hr Q8 IVPB Last administered on 03/05/17 14:51 ; Admin Dose 100 MLS/HR; Start 03/02/17 at 10:00 Cefepime HCl 50 ml @ 100 mls/hr Q12 IVPB Last administered on 03/05/17 10:23 ; Admin Dose 100 MLS/HR; Start 03/03/17 at 21:00 Vancomycin HCl/ Sodium Chloride (Vancocin/NS) 150 ml @ 75 mls/hr Q24H IVPB Last administered on 03/04/17 16:32; Admin Dose 75 MLS/HR; Start 03/04/17 at 14 :00 Insulin Aspart (Novolog Insulin Pen) (Adult SC Insulin - Mild Algorithm)... Q4 SC Last administered on 03/05/17 17:27; Admin Dose 1 UNIT; Start 03/04/17 at 12:00 Insulin Glargine (Lantus) 7 unit QHS SC Last administered on 03/04/17 22:19; Admin Dose 7 UNIT; Start 03/04/17 at 21:00; Status Future Hold Prednisone (Prednisone) 10 mg DAILY NGT Last administered on 03/05/17 10:14; Admin Dose 10 MG; Start 03/05/17 at 09:00 Miscellaneous Information (*Rx Drug Level Order Reminder*) VANCOMYCIN TROUGH LEVEL... ONCE ONCE XX ; Start 03/06/17 at 13:00; Stop 03/06/17 at 13:01 Lidocaine (Xylocaine 1% (Mpf)) 5 ml ONCE ONCE SC ; Start 03/05/17 at 19:00; Stop 03/05/17 at 19:01 ALYSSA THOMPSON MD March 05, 2017 18:59
[2017-03-05] MEDS ORDERED: LIDOCAINE 1% (MPF) 5 ML VIAL SC ONE (19:00)
[2017-03-05] MEDS: ATORVASTATIN 40 MG TAB GTB SCH (21:26)
[2017-03-06] VITALS (10 sets, daily range): BP systolic 71–170; BP diastolic 63–79; PULSE 75–89; RESP 18–20
[2017-03-06] MEDS: INSULIN ASPART [NOVOLOG] 3 ML PEN SC SCH ×5 (01:00→18:26)
[2017-03-06] MEDS: LEVALBUTEROL (NEB) 1.25 MG/0.5 ML AMP HHN SCH ×3 (02:17→13:39)
[2017-03-06] MEDS: HYDROCODONE/APAP (5/325) TAB GTB SCH ×3 (02:57→15:56)
[2017-03-06] MEDS: metroNIDAZOLE 500 MG/NS (PMX) 100 ML IVPB SCH ×2 (05:54→13:15)
[2017-03-06] MEDS: LANSOPRAZOLE 30 MG CAP GTB SCH (05:55)
[2017-03-06 07:08] LABS: ADD SCAN DIFF NO
[2017-03-06 07:18] LABS: ABNORMAL IP MESSAGE 1; BASOPHIL # 0.1 10^3/ul (0.0-0.1); BASOPHILS % 0.7 % (0.0-2.0); EOSINOPHILS # 0.1 10^3/ul (0.0-0.5); EOSINOPHILS % 0.7 % (0.0-7.0); HEMATOCRIT 30.6 % (37.0-47.0); HEMOGLOBIN 9.9 g/dl (12.0-16.0); LYMPHOCYTES # 2.6 10^3/ul (0.8-2.9); LYMPHOCYTES % 14.7 % (15.0-51.0); MEAN CORPUSCULAR HEMOGLOBIN 32.1 pg (29.0-33.0); MEAN CORPUSCULAR HGB CONC 32.4 g/dl (32.0-37.0); MEAN CORPUSCULAR VOLUME 99.4 fl (82.0-101.0); MEAN PLATELET VOLUME 10.1 fl (7.4-10.4); MONOCYTE # 1.4 10^3/ul (0.3-0.9); MONOCYTES % 7.6 % (0.0-11.0); NEUTROPHIL # 12.3 10^3/ul (1.6-7.5); NEUTROPHILS % 68.6 % (39.0-77.0); NUCLEATED RED BLOOD CELLS% 0.2 /100WBC (0.0-0.0); PLATELET COUNT 510 10^3/UL (140-415); RED BLOOD COUNT 3.08 10^6/ul (4.20-5.40); RED CELL DISTRIBUTION WIDTH 16.7 % (11.5-14.5); WHITE BLOOD COUNT 17.9 10^3/ul (4.8-10.8)
[2017-03-06 08:04] LABS: CALCIUM 9.3 mg/dl (8.4-10.2); CREATININE 0.56 mg/dl (0.44-1.00); PHOSPHORUS 2.9 mg/dl (2.5-4.9); POTASSIUM 4.4 mmol/L (3.5-5.1)
[2017-03-06] MEDS: LEVOTHYROXINE 75 MCG TAB GTB SCH (08:54)
[2017-03-06] MEDS: MULTIVITAMINS 5 ML CUP GTB SCH (08:54)
[2017-03-06] MEDS: predniSONE 10 MG TAB NGT SCH (08:54)
[2017-03-06] MEDS: CITALOPRAM 20 MG TAB GTB SCH (08:54)
[2017-03-06] MEDS: L ACIDOPHIL/B LACTIS/B LONGUM CAPSULE PEG SCH (08:54)
[2017-03-06] MEDS: FLUTICASONE 0.05% 16 GM NAS SPRAY NASAL SCH (08:54)
[2017-03-06] MEDS: METOPROLOL 100 MG TAB GTB SCH (08:55)
[2017-03-06] MEDS: CEFEPIME 1GM/50 ML (PMX) 50 ML IVPB SCH (08:55)
--- NOTE | 2017-03-06 09:23 | PN ---
DATE: 03/06/2017 CARDIOLOGY FOLLOWUP SUBJECTIVE: Discussed with the staff. Rhythm strip was reviewed. The patient is in sinus rhythm. No more episodes of atrial fibrillation, with no chest pain or palpitation. She did have a moderat e amount of secretion, apparently. MEDICATIONS: Reviewed, as per medication reconciliation, personally reviewed. PHYSICAL EXAMINATION: VITAL SIGNS: Temperature 98.4, heart rate of 82, blood pressure 129/63, respiratory rate of 20. HEENT: Normocephalic, atraumatic. EYES: Pupils are equal and round. NECK: Status post tracheostomy, on oxygen. CARDIOVASCULAR: Regular rate and rhythm, with a systolic murmur. PULMONARY: Mild diffuse rhonchi. GASTROINTESTINAL: Soft, nontender. EXTREMITIES: Trivial lower extremity edema. NEUROLOGIC: Awake and alert. PSYCHIATRIC: Appears to be calm, pleasant. LABORATORY: WBC of 17.9, hemoglobin 9.9, platelets of 510. Sodium 138, potassium 4.2, BUN of 34. Creatinine was 3.58 as of yesterday. Today's chemistries are pending. ASSESSMENT AND PLAN: 1. Hypoxemic and hypercapneic respiratory failure, status post tracheostomy. 2. Paroxysmal atrial fibrillation, currently back in sinus rhythm. 3. Sepsis and leukocytosis. 4. Possible colitis. 5. Renal insufficiency. 6. Thyroid disorder. On Synthroid. 7. History of congestive heart failure and fluid overload secondary to diastolic dysfunction. 8. Diabetes. RECOMMENDATIONS: Will continue with respiratory care. Antibiotic management as per ID's recommenda tion. Continue with diabetic control. Electrolytes will be corrected as needed. Thyroid supplemen t will be continued to keep the patient euthyroid. Beta shanta will be continued at the current do se for now. Will monitor closely on telemetry. Dictated By: FRANCISCO BRIGGS/BALDO Conf#: [id number] DID#: [id number] CC: NINA MACIEL DO;*EndCC*
[2017-03-06] MEDS: HEPARIN 5,000 UNIT/0.5 ML VIAL SC SCH (09:27)
--- NOTE | 2017-03-06 09:32 | PN ---
DATE: 03/06/2017 SUBJECTIVE: The patient is stable. No acute events overnight. No fevers, chills, nausea, or vomit ing. No shortness breath. OBJECTIVE: VITAL SIGNS: Blood pressure 120/63, respirations 18, pulse 70, temperature 98.4. HEENT: Head is normocephalic. NECK: Supple. HEART: Regular rate. LUNGS: Showed diminished breath sounds at the base. ABDOMEN: Soft, nontender to palpation. No rebound or guarding. EXTREMITIES: Negative for clubbing or cyanosis. No edema. DERMATOLOGIC: No rashes. MUSCULOSKELETAL: Have no joint effusion. NEUROLOGIC: No change in exam. MEDICATIONS: The patient's medications have been reviewed. LABORATORY DATA: Shows a white count of 17.9, hemoglobin 9.9, hematocrit 30.6, platelet count is 51 0. The patient's sputum cultures were reviewed. ASSESSMENT AND PLAN: 1. Sepsis secondary to pneumonia and possible colitis. The patient's sputum cultures have been rev iewed. The patient's C. difficile is currently pending. Continue the current antibiotic regimen. Follow up with infectious disease. 2. Colitis. Etiology is unclear, possibly infectious. The patient is being ruled out for C. diffi cile. Continue the current antibiotic regimen. Continue the current Flagyl. Follow up with GI for recommendations. 3. Chronic respiratory failure. Status post trach. Currently stable. 4. Congestive heart failure. Status post PEG. Continue tube feeding. 5. Leukocytosis. Etiology is multifactorial secondary to steroids and sepsis. The patient's white count is trending down. Continue the current medical management. 6. Adrenal insufficiency. Continue prednisone 10 mg daily. 7. History of tongue cancer, status post resection. No evidence of recurrence. 8. Paroxysmal atrial fibrillation. Currently in sinus rhythm. 9. Hypothyroidism. Continue Synthroid. 10. History of diastolic heart failure. The patient is currently euvolemic. Continue medical angie gement. 11. Hyperglycemia. The patient's glucose levels are currently controlled after tapering down stero ids and being placed on a diabetic source diet. Will hold Lantus and continue Accu-Cheks with insul in sliding scale. 12. History of critical care myopathy. 13. History of coronary artery disease. Continue medical management. 14. History of depression. Continue Celexa. 15. Gastrointestinal and deep venous thrombosis prophylaxis. Continue proton pump inhibitor and se quential leg squeezers. 16. History of cardiac arrest. DISPOSITION: A Isbell evaluation will be placed. Dictated By: NINA PEREIRA/BALDO Conf#: [id number] DID#: [id number]
--- NOTE | 2017-03-06 10:30 | CONS ---
Date/Time of Note Date/Time of Note DATE: 03/06/17 TIME: 10:29 Assessment/Plan Assessment/Plan Additional Assessment/Plan IMPRESSION: 1. Colitis, the etiology is unclear. All the cultures are pending 2. Respiratory failure, status post trach, on aerosol. 3. Sepsis, possible pneumonia, rule out urinary tract infection. 4. Dysphagia, status post percutaneous endoscopic gastrostomy. 5. Renal insufficiency. The patient is on Solu-Medrol. 6. History of tongue cancer. 7. Hypothyroidism. 8. Diabetes mellitus. 9. Depression. 10. Coronary artery disease. 11. Leukocytosis may be related to steroid, it is slowly coming down Plan Awaiting stool culture report Continue present care Stool for occult blood was reported negative Consultation Date/Type/Reason Admit Date/Time March 01, 2017 at 10:51 Initial Consult Date 03/02/17 Type of Consultation: Pulmonary 24 HR Interval Summary Free Text/Dictation No abdominal pain no diarrhea. As per the staff's stool is to solid Constitutional: improved Exam/Review of Systems Vital Signs Vitals Vital Signs Date Time Temp Pulse Resp B/P Pulse Ox O2 Delivery O2 Flow Rate FiO2 03/06/17 08:13 98.0 90 18 149/77 99 03/06/17 07:46 5.0 28 03/06/17 07:45 Aerosol T Tube Intake and Output 03/05/17 03/05/17 03/06/17 15:00 23:00 07:00 Intake Total 200 ml 915 ml Balance 200 ml 915 ml Exam Constitutional: alert, oriented, well developed Psych: nl mood/affect, no complaints Head: atraumatic, normocephalic Eyes: EOMI, PERRL, nl conjunctiva, nl lids, nl sclera ENMT: nl external ears & nose, nl lips & teeth, nl nasal mucosa & septum Neck: non-tender, supple Respiratory: clear to auscultation, normal air movement Cardiovascular: nl pulses, regular rate and rhythm Gastrointestinal: nl liver, spleen, non-tender, soft Musculoskeletal: nl extremities to inspection, nl gait and stance Extremities: normal pulses Neurological: SENIOR SALES ENGINEER II-XII intact, nl mental status, nl speech, nl strength Skin: nl turgor, No rash or lesions Lymph: nl lymph nodes Results Result Diagram: 03/06/17 0555 03/06/17 0555 Results 24 hrs Laboratory Tests Test 03/05/17 12:11 03/05/17 17:22 03/05/17 21:40 03/06/17 03:00 Bedside Glucose 124 149 126 116 Test 03/06/17 04:50 03/06/17 05:55 03/06/17 09:13 Bedside Glucose 127 96 White Blood Count 17.9 #H Red Blood Count 3.08 L Hemoglobin 9.9 L Hematocrit 30.6 L Mean Corpuscular Volume 99.4 Mean Corpuscular Hemoglobin 32.1 Mean Corpuscular Hemoglobin Concent 32.4 Red Cell Distribution Width 16.7 H Platelet Count 510 H Mean Platelet Volume 10.1 Neutrophils % 68.6 Lymphocytes % 14.7 L Monocytes % 7.6 Eosinophils % 0.7 Basophils % 0.7 Nucleated Red Blood Cells % 0.2 H Neutrophils # 12.3 H Lymphocytes # 2.6 Monocytes # 1.4 H Eosinophils # 0.1 Basophils # 0.1 Nucleated Red Blood Cells # 0.0 Sodium Level 136 Potassium Level 4.4 Chloride Level 102 Carbon Dioxide Level 29 Anion Gap 9 Blood Urea Nitrogen 31 H Creatinine 0.56 Glucose Level 101 Calcium Level 9.3 Phosphorus Level 2.9 Magnesium Level 2.0 Medications Medications Current Medications Fluticasone Propionate (Flonase 0.05% Nasal) 1 spray BID NASAL Last administered on 03/06/17 08:54; Admin Dose 1 SPRAY; Start 03/01/17 at 21:00 Zolpidem Tartrate (Ambien) 5 mg QHS PRN PO INSOMNIA; Start 03/01/17 at 16:00 Lansoprazole (Prevacid) 30 mg DAILY@06 GTB Last administered on 03/06/17 05:55 ; Admin Dose 30 MG; Start 03/02/17 at 06:00 Multivitamins (Thera-Plus) 5 ml DAILY GTB Last administered on 03/06/17 08:54 ; Admin Dose 5 ML; Start 03/02/17 at 09:00 Ondansetron HCl (Zofran Inj) 4 mg Q6H PRN IV NAUSEA AND/OR VOMITING; Start at 16:00 Docusate Sodium (Colace) 100 mg Q12H PRN PO CONSTIPATION; Start 03/01/17 at 16: 00 Bisacodyl (Dulcolax Supp) 10 mg DAILY PRN [place] CONSTIPATION; Start 03/01/17 at 16 :00 Heparin Sodium (Porcine) (Heparin (5000 Units/0.5 ml)) 5,000 unit Q12 SC Last administered on 03/06/17 09:27; Admin Dose 5,000 UNIT; Start 03/01/17 at 21:00 Miscellaneous Information 1 ea NOTE XX ; Start 03/01/17 at 16:00 Glucose (Glutose) 15 gm Q15M PRN PO DECREASED GLUCOSE; Start 03/01/17 at 16:00 Glucose (Glutose) 22.5 gm Q15M PRN PO DECREASED GLUCOSE; Start 03/01/17 at 16: 00 Dextrose (D50w Syringe) 25 ml Q15M PRN IV DECREASED GLUCOSE; Start 03/01/17 at 16:00 Dextrose (D50w Syringe) 50 ml Q15M PRN IV DECREASED GLUCOSE; Start 03/01/17 at 16:00 Glucagon (Glucagen) 1 mg Q15M PRN IM DECREASED GLUCOSE; Start 03/01/17 at 16:00 Glucose (Glutose) 15 gm Q15M PRN BUCCAL DECREASED GLUCOSE; Start 03/01/17 at 16 :00 Acetaminophen/ Hydrocodone Bitart ([place] (5/325)) 1 tab Q6H GTB Last administered on 03/06/17 09:30; Admin Dose 1 TAB; Start 03/01/17 at 20:30 Acetaminophen (Tylenol Tab) 650 mg Q6H PRN GTB PAIN AND OR ELEVATED TEMP; Start 03/01/17 at 22:00 Atorvastatin Calcium (Lipitor) 40 mg QHS GTB Last administered on 03/05/17 21: 26; Admin Dose 40 MG; Start 03/01/17 at 21:00 Citalopram Hydrobromide (Celexa) 20 mg DAILY GTB Last administered on 08:54; Admin Dose 20 MG; Start 03/02/17 at 09:00 Magnesium Hydroxide (Milk Of Mag) 30 ml DAILY PRN GTB CONSTIPATION; Start 03/01 at 20:30 Lactobacillus Acidophilus (Florajen3 Capsule) 1 each BID PEG Last administered on 03/06/17 08:54; Admin Dose 1 EACH; Start 03/01/17 at 21:00 Metoprolol Tartrate 100 mg 100 mg BID GTB Last administered on 03/06/17 08:55 ; Admin Dose 100 MG; Start 03/01/17 at 21:00 Metronidazole 100 ml @ 100 mls/hr Q8 IVPB Last administered on 03/06/17 05:54 ; Admin Dose 100 MLS/HR; Start 03/02/17 at 10:00 Cefepime HCl 50 ml @ 100 mls/hr Q12 IVPB Last administered on 03/06/17 08:55 ; Admin Dose 100 MLS/HR; Start 03/03/17 at 21:00 Vancomycin HCl/ Sodium Chloride (Vancocin/NS) 150 ml @ 75 mls/hr Q24H IVPB Last administered on 03/05/17 20:08; Admin Dose 75 MLS/HR; Start 03/04/17 at 14 :00 Insulin Aspart (Novolog Insulin Pen) (Adult SC Insulin - Mild Algorithm)... Q4 SC Last administered on 03/05/17 17:27; Admin Dose 1 UNIT; Start 03/04/17 at 12:00 Insulin Glargine (Lantus) 7 unit QHS SC Last administered on 03/04/17 22:19; Admin Dose 7 UNIT; Start 03/04/17 at 21:00; Status Future Hold Prednisone (Prednisone) 10 mg DAILY NGT Last administered on 03/06/17 08:54; Admin Dose 10 MG; Start 03/05/17 at 09:00 Miscellaneous Information (*Rx Drug Level Order Reminder*) VANCOMYCIN TROUGH LEVEL... ONCE ONCE XX ; Start 03/06/17 at 13:00; Stop 03/06/17 at 13:01 ALYSSA THOMPSON MD March 06, 2017 10:30
--- NOTE | 2017-03-06 10:35 | CONS ---
Date/Time of Note Date/Time of Note DATE: 03/06/17 TIME: 10:34 Consult Date/Type/Reason Admit Date/Time March 01, 2017 at 10:51 Initial Consult Date 03/02/17 Type of Consultation: Pulmonary Subjective Patient awake alert and oriented comfortable Objective Vital Signs Date Time Temp Pulse Resp B/P Pulse Ox O2 Delivery O2 Flow Rate FiO2 03/06/17 08:13 98.0 90 18 149/77 99 03/06/17 07:46 5.0 28 03/06/17 07:45 Aerosol T Tube Intake and Output 03/05/17 03/05/17 03/06/17 15:00 23:00 07:00 Intake Total 200 ml 915 ml Balance 200 ml 915 ml Exam PHYSICAL EXAMINATION: GENERAL: Elderly lady, awake, alert, currently in no distress. VITAL SIGNS: As above HEENT: Supple neck. No JVD, no lymphadenopathy. Midline trachea. clean insertion site. Pupils are mid size, reactive to light. CHEST: Bilateral wheezing. HEART: S1, S2 audible. No murmurs. Regular rhythm. ABDOMEN: Soft. G-tube in place. No organomegaly. Bowel sounds audible. EXTREMITIES: No peripheral edema. Pulses 1+ bilaterally. NEUROLOGIC: No focal deficit. Results/Medications Result Diagram: 03/06/17 0555 03/06/17 0555 Results 24 hrs Laboratory Tests Test 03/05/17 12:11 03/05/17 17:22 03/05/17 21:40 03/06/17 03:00 Bedside Glucose 124 149 126 116 Test 03/06/17 04:50 03/06/17 05:55 03/06/17 09:13 Bedside Glucose 127 96 White Blood Count 17.9 #H Red Blood Count 3.08 L Hemoglobin 9.9 L Hematocrit 30.6 L Mean Corpuscular Volume 99.4 Mean Corpuscular Hemoglobin 32.1 Mean Corpuscular Hemoglobin Concent 32.4 Red Cell Distribution Width 16.7 H Platelet Count 510 H Mean Platelet Volume 10.1 Neutrophils % 68.6 Lymphocytes % 14.7 L Monocytes % 7.6 Eosinophils % 0.7 Basophils % 0.7 Nucleated Red Blood Cells % 0.2 H Neutrophils # 12.3 H Lymphocytes # 2.6 Monocytes # 1.4 H Eosinophils # 0.1 Basophils # 0.1 Nucleated Red Blood Cells # 0.0 Sodium Level 136 Potassium Level 4.4 Chloride Level 102 Carbon Dioxide Level 29 Anion Gap 9 Blood Urea Nitrogen 31 H Creatinine 0.56 Glucose Level 101 Calcium Level 9.3 Phosphorus Level 2.9 Magnesium Level 2.0 Medications Current Medications Fluticasone Propionate (Flonase 0.05% Nasal) 1 spray BID NASAL Last administered on 03/06/17 08:54; Admin Dose 1 SPRAY; Start 03/01/17 at 21:00 Zolpidem Tartrate (Ambien) 5 mg QHS PRN PO INSOMNIA; Start 03/01/17 at 16:00 Lansoprazole (Prevacid) 30 mg DAILY@06 GTB Last administered on 03/06/17 05:55 ; Admin Dose 30 MG; Start 03/02/17 at 06:00 Multivitamins (Thera-Plus) 5 ml DAILY GTB Last administered on 03/06/17 08:54 ; Admin Dose 5 ML; Start 03/02/17 at 09:00 Ondansetron HCl (Zofran Inj) 4 mg Q6H PRN IV NAUSEA AND/OR VOMITING; Start at 16:00 Docusate Sodium (Colace) 100 mg Q12H PRN PO CONSTIPATION; Start 03/01/17 at 16: 00 Bisacodyl (Dulcolax Supp) 10 mg DAILY PRN [place] CONSTIPATION; Start 03/01/17 at 16 :00 Heparin Sodium (Porcine) (Heparin (5000 Units/0.5 ml)) 5,000 unit Q12 SC Last administered on 03/06/17 09:27; Admin Dose 5,000 UNIT; Start 03/01/17 at 21:00 Miscellaneous Information 1 ea NOTE XX ; Start 03/01/17 at 16:00 Glucose (Glutose) 15 gm Q15M PRN PO DECREASED GLUCOSE; Start 03/01/17 at 16:00 Glucose (Glutose) 22.5 gm Q15M PRN PO DECREASED GLUCOSE; Start 03/01/17 at 16: 00 Dextrose (D50w Syringe) 25 ml Q15M PRN IV DECREASED GLUCOSE; Start 03/01/17 at 16:00 Dextrose (D50w Syringe) 50 ml Q15M PRN IV DECREASED GLUCOSE; Start 03/01/17 at 16:00 Glucagon (Glucagen) 1 mg Q15M PRN IM DECREASED GLUCOSE; Start 03/01/17 at 16:00 Glucose (Glutose) 15 gm Q15M PRN BUCCAL DECREASED GLUCOSE; Start 03/01/17 at 16 :00 Acetaminophen/ Hydrocodone Bitart ([place] (5/325)) 1 tab Q6H GTB Last administered on 03/06/17 09:30; Admin Dose 1 TAB; Start 03/01/17 at 20:30 Acetaminophen (Tylenol Tab) 650 mg Q6H PRN GTB PAIN AND OR ELEVATED TEMP; Start 03/01/17 at 22:00 Atorvastatin Calcium (Lipitor) 40 mg QHS GTB Last administered on 03/05/17 21: 26; Admin Dose 40 MG; Start 03/01/17 at 21:00 Citalopram Hydrobromide (Celexa) 20 mg DAILY GTB Last administered on 08:54; Admin Dose 20 MG; Start 03/02/17 at 09:00 Magnesium Hydroxide (Milk Of Mag) 30 ml DAILY PRN GTB CONSTIPATION; Start 03/01 at 20:30 Lactobacillus Acidophilus (Florajen3 Capsule) 1 each BID PEG Last administered on 03/06/17 08:54; Admin Dose 1 EACH; Start 03/01/17 at 21:00 Metoprolol Tartrate 100 mg 100 mg BID GTB Last administered on 03/06/17 08:55 ; Admin Dose 100 MG; Start 03/01/17 at 21:00 Metronidazole 100 ml @ 100 mls/hr Q8 IVPB Last administered on 03/06/17 05:54 ; Admin Dose 100 MLS/HR; Start 03/02/17 at 10:00 Cefepime HCl 50 ml @ 100 mls/hr Q12 IVPB Last administered on 03/06/17 08:55 ; Admin Dose 100 MLS/HR; Start 03/03/17 at 21:00 Vancomycin HCl/ Sodium Chloride (Vancocin/NS) 150 ml @ 75 mls/hr Q24H IVPB Last administered on 03/05/17 20:08; Admin Dose 75 MLS/HR; Start 03/04/17 at 14 :00 Insulin Aspart (Novolog Insulin Pen) (Adult SC Insulin - Mild Algorithm)... Q4 SC Last administered on 03/05/17 17:27; Admin Dose 1 UNIT; Start 03/04/17 at 12:00 Insulin Glargine (Lantus) 7 unit QHS SC Last administered on 03/04/17t 22:19; Admin Dose 7 UNIT; Start 03/04/17 at 21:00; Status Future Hold Prednisone (Prednisone) 10 mg DAILY NGT Last administered on 03/06/17 08:54; Admin Dose 10 MG; Start 03/05/17 at 09:00 Miscellaneous Information (*Rx Drug Level Order Reminder*) VANCOMYCIN TROUGH LEVEL... ONCE ONCE XX ; Start 03/06/17 at 13:00; Stop 03/06/17 at 13:01 Assessment/Plan Chief Complaint/Hosp Course Assessment 1. Chronic respiratory failure with tracheostomy 2. Likely acute tracheal bronchitis with persistent leukocytosis 3. Colitis of unclear etiology, resolving leukocytosis clinically stable. Await stool studies 4. History of tongue cancer 5. History of diabetes mellitus Plan 1. Continue antibiotics per ID recommendations 2. Continue supplemental O2 3. Continue trach site care 4. Aspiration precautions 5. Continue GI recommendations awaiting culture results Disposition Continue current care Consider Isbell evaluation Problems: DARWIN CRAWFORD MD, [facility] March 06, 2017 10:35
--- NOTE | 2017-03-06 14:10 | CONS ---
Date/Time of Note Date/Time of Note DATE: 03/06/17 TIME: 14:07 Assessment/Plan Assessment/Plan Chief Complaint/Hosp Course SUBJECTIVE: No acute changes. The patient is alert, ambulating with PT, no fevers MICROBIOLOGY: Cultures remain negative. INDWELLINGS: Trach, PEG, Latif. DIAGNOSTICS: CT of the abdomen and pelvis revealed bronchopneumonia with mild diffuse colonic wall thickening suggestive of mild diffuse colitis. ANTIMICROBIALS: The patient is on: 1. Flagyl. 2. Vancomycin. 3. Cefepime PHYSICAL EXAMINATION: GENERAL: This is a fragile, well-developed, elderly woman who is in no distress. HEENT: Head atraumatic, normocephalic. Sclerae anicteric. Buccal mucosa dry. NECK: Supple. Tracheostomy present. CHEST: Rise symmetrical. Breath sounds diminished to bases. HEART: S1, S2. ABDOMEN: Soft, bowel tones present. EXTREMITIES: No cyanosis. ASSESSMENT: 1. S/p sepsis 2. Probable Clostridium difficile colitis as per CT of the abdomen and pelvis and chest. 3. Bibasilar bronchiolitis per chest CT concerning for bronchopneumonia. 4. Dysphagia. 5. Paroxysmal atrial fibrillation. 6. Diabetes. 7. History of tongue cancer. 8. Persistent leukocytosis==> improving, on PO steroids PLAN: Continues to improve, continue abx. Follow recommendations of consultants. [facility] staff Problems: Consultation Date/Type/Reason Admit Date/Time March 01, 2017 at 10:51 Initial Consult Date 03/02/17 Type of Consultation: ID Exam/Review of Systems Vital Signs Vitals Vital Signs Date Time Temp Pulse Resp B/P Pulse Ox O2 Delivery O2 Flow Rate FiO2 03/06/17 13:45 94 5.0 03/06/17 13:44 76 20 Aerosol 28 T Tube 03/06/17 11:28 98.6 138/69 Intake and Output 03/05/17 03/05/17 03/06/17 15:00 23:00 07:00 Intake Total 200 ml 915 ml Balance 200 ml 915 ml Results Result Diagram: 03/06/17 0555 03/06/17 0555 Results 24 hrs Laboratory Tests Test 03/05/17 17:22 03/05/17 21:40 03/06/17 03:00 03/06/17 04:50 Bedside Glucose 149 126 116 127 Test 03/06/17 05:55 03/06/17 09:13 03/06/17 13:14 White Blood Count 17.9 #H Red Blood Count 3.08 L Hemoglobin 9.9 L Hematocrit 30.6 L Mean Corpuscular Volume 99.4 Mean Corpuscular Hemoglobin 32.1 Mean Corpuscular Hemoglobin Concent 32.4 Red Cell Distribution Width 16.7 H Platelet Count 510 H Mean Platelet Volume 10.1 Neutrophils % 68.6 Lymphocytes % 14.7 L Monocytes % 7.6 Eosinophils % 0.7 Basophils % 0.7 Nucleated Red Blood Cells % 0.2 H Neutrophils # 12.3 H Lymphocytes # 2.6 Monocytes # 1.4 H Eosinophils # 0.1 Basophils # 0.1 Nucleated Red Blood Cells # 0.0 Sodium Level 136 Potassium Level 4.4 Chloride Level 102 Carbon Dioxide Level 29 Anion Gap 9 Blood Urea Nitrogen 31 H Creatinine 0.56 Glucose Level 101 Calcium Level 9.3 Phosphorus Level 2.9 Magnesium Level 2.0 Bedside Glucose 96 161 Medications Medications Current Medications Fluticasone Propionate (Flonase 0.05% Nasal) 1 spray BID NASAL Last administered on 03/06/17 08:54; Admin Dose 1 SPRAY; Start 03/01/17 at 21:00 Zolpidem Tartrate (Ambien) 5 mg QHS PRN PO INSOMNIA; Start 03/01/17 at 16:00 Lansoprazole (Prevacid) 30 mg DAILY@06 GTB Last administered on 03/06/17 05:55 ; Admin Dose 30 MG; Start 03/02/17 at 06:00 Multivitamins (Thera-Plus) 5 ml DAILY GTB Last administered on 03/06/17 08:54 ; Admin Dose 5 ML; Start 03/02/17 at 09:00 Ondansetron HCl (Zofran Inj) 4 mg Q6H PRN IV NAUSEA AND/OR VOMITING; Start at 16:00 Docusate Sodium (Colace) 100 mg Q12H PRN PO CONSTIPATION; Start 03/01/17 at 16: 00 Bisacodyl (Dulcolax Supp) 10 mg DAILY PRN WI CONSTIPATION; Start 03/01/17 at 16 :00 Heparin Sodium (Porcine) (Heparin (5000 Units/0.5 ml)) 5,000 unit Q12 SC Last administered on 03/06/17 09:27; Admin Dose 5,000 UNIT; Start 03/01/17 at 21:00 Miscellaneous Information 1 ea NOTE XX ; Start 03/01/17 at 16:00 Glucose (Glutose) 15 gm Q15M PRN PO DECREASED GLUCOSE; Start 03/01/17 at 16:00 Glucose (Glutose) 22.5 gm Q15M PRN PO DECREASED GLUCOSE; Start 03/01/17 at 16: 00 Dextrose (D50w Syringe) 25 ml Q15M PRN IV DECREASED GLUCOSE; Start 03/01/17 at 16:00 Dextrose (D50w Syringe) 50 ml Q15M PRN IV DECREASED GLUCOSE; Start 03/01/17 at 16:00 Glucagon (Glucagen) 1 mg Q15M PRN IM DECREASED GLUCOSE; Start 03/01/17 at 16:00 Glucose (Glutose) 15 gm Q15M PRN BUCCAL DECREASED GLUCOSE; Start 03/01/17 at 16 :00 Acetaminophen/ Hydrocodone Bitart ([place] (5/325)) 1 tab Q6H GTB Last administered on 03/06/17 09:30; Admin Dose 1 TAB; Start 03/01/17 at 20:30 Acetaminophen (Tylenol Tab) 650 mg Q6H PRN GTB PAIN AND OR ELEVATED TEMP; Start 03/01/17 at 22:00 Atorvastatin Calcium (Lipitor) 40 mg QHS GTB Last administered on 03/05/17 21: 26; Admin Dose 40 MG; Start 03/01/17 at 21:00 Citalopram Hydrobromide (Celexa) 20 mg DAILY GTB Last administered on 08:54; Admin Dose 20 MG; Start 03/02/17 at 09:00 Magnesium Hydroxide (Milk Of Mag) 30 ml DAILY PRN GTB CONSTIPATION; Start 03/01 at 20:30 Lactobacillus Acidophilus (Florajen3 Capsule) 1 each BID PEG Last administered on 03/06/17 08:54; Admin Dose 1 EACH; Start 03/01/17 at 21:00 Metoprolol Tartrate 100 mg 100 mg BID GTB Last administered on 03/06/17 08:55 ; Admin Dose 100 MG; Start 03/01/17 at 21:00 Metronidazole 100 ml @ 100 mls/hr Q8 IVPB Last administered on 03/06/17 13:15 ; Admin Dose 100 MLS/HR; Start 03/02/17 at 10:00 Cefepime HCl (Maxipime 1gm/50 ml (Pmx)) 50 ml @ 100 mls/hr Q12 IVPB Last administered on 03/06/17 08:55; Admin Dose 100 MLS/HR; Start 03/03/17 at 21:00 Insulin Aspart (Novolog Insulin Pen) (Adult SC Insulin - Mild Algorithm)... Q4 SC Last administered on 03/06/17 13:23; Admin Dose 1 UNIT; Start 03/04/17 at 12:00 Insulin Glargine (Lantus) 7 unit QHS SC Last administered on 03/04/17 22:19; Admin Dose 7 UNIT; Start 03/04/17 at 21:00; Status Future Hold Prednisone 10 mg 10 mg DAILY NGT Last administered on 03/06/17 08:54; Admin Dose 10 MG; Start 03/05/17 at 09:00 Vancomycin HCl/ Sodium Chloride (Vancocin/NS) 150 ml @ 75 mls/hr Q24H IVPB ; Start 03/06/17 at 17:00 Miscellaneous Information (*Rx Drug Level Order Reminder*) 1 ONCE ONCE XX ; Start 03/06/17 at 16:00; Stop 03/06/17 at 16:01 LORETO MCKEON NP March 06, 2017 14:10
[2017-03-06] MEDS ORDERED: VANCOMYCIN 750 MG in SOD CHLORIDE 0.9% 150 ML IVPB SCH (17:00)
[2017-03-07] MEDS ORDERED: VANCOMYCIN 1 GM in NS 250 ML IVPB SCH (17:00)
--- NOTE | 2017-03-11 11:33 | DS ---
DATE OF ADMISSION: 03/01/2017 DATE OF DISCHARGE: 03/06/2017 HOSPITAL COURSE: This is a 66-year-old female with a past medical history of chronic respiratory fa ilure, status post tracheostomy, history of dysphagia, status post PEG, history of hypothyroidism, h ypertension, diabetes, history of head and neck cancer, status post resection, who presents to [facility] with fever. The patient upon admission was diagnosed with a pneumonia and w ith colitis. She was treated with IV antibiotics, was seen by Dr. Higuera, printing table hand, Dr. Sonam rodriguez, infectious disease specialist, and Dr. Garcia, telephone surveyor. The patient clinically improved with a course of antibiotic therapy. The patient after being stabilized was then subsequently tolbert sferred to [facility] for continued care. FINAL DIAGNOSES: 1. Sepsis secondary to pneumonia and colitis. 2. Clostridium difficile colitis. 3. Chronic respiratory failure, status post tracheostomy. 4. Leukocytosis. 5. Possible adrenal insufficiency. 6. History of tongue cancer, status post resection. 7. Paroxysmal atrial fibrillation. 8. Hypothyroidism. 9. History of diastolic heart failure. 10. Hyperglycemia. 11. History of critical care myopathy. 12. History of coronary artery disease. 13. History of depression. 14. History of cardiac arrest. CONDITION: At the time of transfer, the patient is stable, in no acute distress. FINAL MEDICATIONS: See reconciliation list. Dictated By: NINA PEREIRA/NTS Conf#: [id number] DID#: [id number]
== END 2017-03-06 19:10 | disposition short-term general hospital (02) | DRG 871 ==
LOC: E/R 08:57 → TEL 10:51
PROVIDERS: ADMIT Family Medicine; ATTEND Internal Medicine
DX: A41.89 Other specified sepsis (principal); J18.0 Bronchopneumonia, unspecified organism; J96.21 Acute and chronic respiratory failure with hypoxia; G93.40 Encephalopathy, unspecified; E87.3 Alkalosis; A04.7 Enterocolitis due to Clostridium difficile; I95.9 Hypotension, unspecified; Z93.0 Tracheostomy status; A04.8 Other specified bacterial intestinal infections; J18.9 Pneumonia, unspecified organism; J96.22 Acute and chronic respiratory failure with hypercapnia; J21.9 Acute bronchiolitis, unspecified; N39.0 Urinary tract infection, site not specified; E27.40 Unspecified adrenocortical insufficiency; J44.0 Chronic obstructive pulmonary disease with (acute) lower respiratory infection; J20.9 Acute bronchitis, unspecified; I48.0 Paroxysmal atrial fibrillation; I25.10 Atherosclerotic heart disease of native coronary artery without angina pectoris; D63.8 Anemia in other chronic diseases classified elsewhere; D72.829 Elevated white blood cell count, unspecified; C02.9 Malignant neoplasm of tongue, unspecified; K58.9 Irritable bowel syndrome, unspecified; N28.9 Disorder of kidney and ureter, unspecified; E03.9 Hypothyroidism, unspecified; E86.0 Dehydration; E11.42 Type 2 diabetes mellitus with diabetic polyneuropathy; F32.9 Major depressive disorder, single episode, unspecified; R25.1 Tremor, unspecified; R13.10 Dysphagia, unspecified; Y95 Nosocomial condition; Z93.1 Gastrostomy status; Z85.810 Personal history of malignant neoplasm of tongue; Z86.79 Personal history of other diseases of the circulatory system; Z86.74 Personal history of sudden cardiac arrest; Z88.6 Allergy status to analgesic agent; Z88.8 Allergy status to other drugs, medicaments and biological substances
CPT/HCPCS: 36415; 71010; 74176; 80048; 80053; 80061; 80202; 81001; 81003; 82270; 82962; 83036; 83605; 83690; 83735; 84100; 84145; 84436; 84443; 84479; 84484; 85025; 85610; 85730; 87040; 87045; 87070; 87075; 87081; 87086; 93005; 94640; 96374; 96375; 97110; 97116; 97162; 97530; J0692; J1644; J1720; J1815; J2920; J3370; J7030; J7512

== ENCOUNTER 2017-04-11 09:13 | Inpatient (IN) | payer MEDICARE, BC ==
[~2017-04-11] VITALS: Ht 165.1 cm; Wt 65.0 kg
[~2017-04-11 09:13] MED LIST: ACET-2047 G-TUBE; ACET-2047 PO; ATOR40TA68 G-TUBE; CITA20TA6 G-TUBE; ETOMIDATE 20 MG INJ ONE; FLUT16SP17 NASAL; HYDR-906 PO; LACTINEX G-TUBE; LEVA0.6312 HHN; LEVO75TA5 G-TUBE; LIDO700A6 TP; METO-407 G-TUBE; MULT-886 G-TUBE; PANT40SU G-TUBE; PRED10TA G-TUBE; PUMP MISCELLANEOUS NEB; SUCCINYLCHOLINE CHLORIDE 100 MG/5 ML SYG IV ONE; ZOLP5TAB G-TUBE
[2017-04-11] MEDS ORDERED: ONDANSETRON 4 MG INJ IV STA (09:14)
[2017-04-11] MEDS ORDERED: PIPER-TAZO 3.375 GM IV (PMX) 100 ML IVPB STA (09:14)
[2017-04-11 09:34] LABS: AADO2 Arterial 599.6 mmHg (7.0-24.0); Allen Test ACCEPTAB; Arterial Base Excess 5.6 mmol/L (-3.0-3); Arterial COHb 0.4 % (0.0-3.0); Arterial MetHb 0.2 % (0.0-1.5); Arterial Total Hemglobin 12.2 g/dl (12.0-18.0); MODE MASK - NRB
[2017-04-11] MEDS ORDERED: PROPOFOL 100 ML ONE (09:40)
[2017-04-11 09:45] VITALS: Ht 165.1 cm; Wt 65.0 kg
[2017-04-11 09:45] LABS: BASOPHIL # 0.1 10^3/ul (0.0-0.1); BASOPHILS % 0.4 % (0.0-2.0); EOSINOPHILS # 0.1 10^3/ul (0.0-0.5); EOSINOPHILS % 0.5 % (0.0-7.0); HEMATOCRIT 34.6 % (37.0-47.0); HEMOGLOBIN 10.9 g/dl (12.0-16.0); LYMPHOCYTES # 1.8 10^3/ul (0.8-2.9); LYMPHOCYTES % 13.7 % (15.0-51.0); MEAN CORPUSCULAR HEMOGLOBIN 34.6 pg (29.0-33.0); MEAN CORPUSCULAR HGB CONC 31.5 g/dl (32.0-37.0); MEAN CORPUSCULAR VOLUME 109.8 fl (82.0-101.0); MEAN PLATELET VOLUME 10.8 fl (7.4-10.4); MONOCYTE # 0.9 10^3/ul (0.3-0.9); MONOCYTES % 6.6 % (0.0-11.0); NEUTROPHILS % 76.3 % (39.0-77.0); NUCLEATED RED BLOOD CELLS% 0.2 /100WBC (0.0-0.0); PLATELET COUNT 302 10^3/UL (140-415); RED BLOOD COUNT 3.15 10^6/ul (4.20-5.40); WHITE BLOOD COUNT 13.1 10^3/ul (4.8-10.8)
[2017-04-11 09:48] LABS: ADD SCAN DIFF NO
[2017-04-11] MEDS ORDERED: BISA10SU18 RC (09:48)
[2017-04-11] MEDS ORDERED: UDCOL GTB (09:49)
[2017-04-11] MEDS ORDERED: HEPA500021 IJ (09:49)
--- NOTE | 2017-04-11 09:51 | RADRPT ---
PROCEDURE: Chest Radiograph. CLINICAL INDICATION: Sepsis TECHNIQUE: Single frontal chest radiograph. COMPARISON: Chest radiograph 03/20/2017 FINDINGS: The patient is rotated. Previously seen tracheostomy tube is not well visualized. Heart size is poo rly evaluated. Atherosclerotic calcifications are present. There is a new right medial basilar inf iltrate. There is a questionable left basilar infiltrate. There is patchy opacities throughout the bilateral lung rich which also appear new or worsening compared to prior study .. The bones ar e intact. IMPRESSION: 1. New right greater than left basilar infiltrates. Recommend correlation with pneumonia, possibly aspiration. 2. New patchy opacities throughout the bilateral lung rich are nonspecific and may represent infi ltrates or edema. 3. Nonvisualization of tracheostomy tube which may been removed. 3. Atherosclerotic vascular disease RPTAT: KK .Inocente Donaldson MD, Date Time Electronically viewed and signed by .Inocente Donaldson MD, on 04/11/2017 09:50 .B/
[2017-04-11] MEDS ORDERED: INSU100C SQ (09:54)
[2017-04-11 09:55] LABS: INR 0.94; PROTIME 12.6 Sec (12.2-14.2)
[2017-04-11] MEDS ORDERED: HYDR-906 GTB (09:55)
[2017-04-11 09:56] LABS: PARTIAL THROMBOPLASTIN TIME 26.6 Sec (25.0-35.0)
[2017-04-11] MEDS ORDERED: HYDR5TAB GTB (09:56)
[2017-04-11] MEDS ORDERED: HYDR20TA GTB (09:56)
[2017-04-11] MEDS ORDERED: LANS30CA GTB (09:57)
[2017-04-11] MEDS ORDERED: IMO2 GTB (09:58)
[2017-04-11 09:59] LABS: ALBUMIN 4.7 g/dl (3.3-4.9); ALBUMIN/GLOBULIN RATIO 1.67; BILIRUBIN,INDIRECT 0.1 mg/dl (0-1.1); BILIRUBIN,TOTAL 0.1 mg/dl (0.2-1.3); CREATININE 0.85 mg/dl (0.44-1.00); POTASSIUM 4.9 mmol/L (3.5-5.1); TOTAL PROTEIN 7.5 g/dl (6.1-8.1)
[2017-04-11] MEDS ORDERED: MAGN400O4 GTB (09:59)
[2017-04-11] MEDS ORDERED: METO-429 GTB (09:59)
[2017-04-11] MEDS ORDERED: VANCOMYCIN 1 GM (PMX) 250 ML IVPB SCH (10:00)
[2017-04-11 10:22] LABS: TROPONIN-I 0.272 ng/ml (0.00-0.12)
[2017-04-11] MEDS ORDERED: PROPOFOL 100 ML IV ONE (10:30)
[2017-04-11] MEDS ORDERED: SOD CHLORIDE 0.9% 1,000 ML IV ONE ×4 (11:00→23:00)
[2017-04-11] MEDS ORDERED: LORAZEPAM 2 MG INJ ONE (11:13)
[2017-04-11] MEDS ORDERED: MIDAZOLAM (DRIP) 50 mg/50 mL 50 ML IV STA (11:14)
[2017-04-11] MEDS ORDERED: LORAZEPAM 2 MG INJ IV ONE (11:30)
[2017-04-11] MEDS ORDERED: FENTAnyl (DRIP) 1000 mcg/100mL 100 ML IV ONE (11:30)
[2017-04-11] MEDS ORDERED: ASPIRIN 300 MG SUPP PR ONE (11:30)
--- NOTE | 2017-04-11 11:39 | RADRPT ---
PROCEDURE: Chest x-ray CLINICAL INDICATION: Intubation TECHNIQUE: Chest single view COMPARISON: 04/11/2017 FINDINGS: There is interval placement of endotracheal tube which terminates 1 cm above the sammy. Nasogastri c tube extends into the stomach. Stable mild cardiomegaly and an sclerotic aortic calcification is seen. As before, there is stable bilateral perihilar ground-glass densities. This may represent ed wilbert or pneumonia. Trace right pleural effusions. Left costophrenic angle sharp. No pneumothorax i s noted. IMPRESSION: 1. Interval placement of endotracheal tube which terminates 1 cm above the sammy, but is directed towards right mainstem bronchus. Recommend it be pulled back 2 cm. 2. Nasogastric tube in good position. 3. Stable bilateral perihilar ground-glass densities. This may represent edema or pneumonia. 4. Stable mild cardiomegaly and atherosclerotic aortic calcification Call report was made to Dr. Pink on 04/11/2017 11:37:41 AM RPTAT: HH .Skyler Kerns MD, Date Time Electronically viewed and signed by .Skyler Kerns MD, on 04/11/2017 11:39 .W/
--- NOTE | 2017-04-11 11:44 | ERA ---
ER Documentation Chief Complaint Date/Time DATE: 04/11/17 TIME: 11:35 Chief Complaint from SNF for sob 02 sat 78% on RA ROS All systems reviewed and are negative except as per history of present illness. Medications Home Meds Reported Medications Metoprolol Tartrate* (Lopressor*) 50 Mg Tab, 50 MG GTB BID, #60 TAB 04/11/17 Magnesium Hydroxide* (Milk Of Magnesia*) 400 Mg/5 Ml Oral.susp, 30 ML GTB DAILY , ML 04/11/17 Loperamide Hcl* (Loperamide Hcl*) 2 Mg Cap, 2 MG GTB Q6 Y for DIARRHEA, CAP 04/11/17 Lansoprazole* (Lansoprazole*) 30 Mg Capsule.dr, 30 MG GTB DAILY, CAP 04/11/17 Hydrocortisone* (Cortef*) 20 Mg Tablet, 20 MG GTB DAILY, #60 TAB 04/11/17 Hydrocortisone* (Cortef*) 5 Mg Tab, 10 MG GTB QHS, #120 TAB 04/11/17 Hydrocodone/Acetaminophen ([place] 5-325 Tablet) 1 Each Tablet, 1 EACH GTB Q6 Y for PAIN, TAB 04/11/17 Insulin Lispro (Humalog) 100 Unit/1 Ml Cartridge, 0 SQ Q12 71-150 = 0 UNITS 151-200 = 2 UNITS 201-250 = 4 UNITS 251-300 = 6 UNITS 301-350 - 8 UNITS 351-400 = 10 UNITS IF OVER 400 GIVE 12 UNITS AND CALL MD IF BELOW 70 GIVE ORANGE JUICE OR 1MG IM GLUCAGON AND CALL MD 04/11/17 Heparin Sodium,Porcine/Pf (HEPARIN SOD 5,000 UNIT/ 0.5 ML) 5,000 Unit/0.5 Ml Vial, 5000 UNIT IJ Q12, VIAL 04/11/17 Docusate Sodium* (Colace* Liq) 50 Mg/5 Ml Liquid, 100 MG GTB BID, EA 04/11/17 Bisacodyl (Laxative Suppository) 10 Mg Supp.rect, 10 MG RC DAILY Y for CONSTIPATION, SUPP.RECT 04/11/17 Lidocaine (Lidoderm) 1 Each Adh..patch, 1 PATCH TP Q12 03/01/17 Atorvastatin* (Atorvastatin*) 40 Mg Tablet, 40 MG G-TUBE QHS, #30 TAB 03/01/17 Acetaminophen* (Acetaminophen*) 650 Mg Tablet, 650 MG G-TUBE Q6H Y for PAIN AND OR ELEVATED TEMP, #30 TAB 03/01/17 Zolpidem Tartrate* (Ambien*) 5 Mg Tablet, 5 MG G-TUBE QHS Y for INSOMNIA, #30 TAB 03/01/17 Multivitamin-Min/Iron/FA/Vit K (Multi-Day Plus Minerals Tablet) 1 Each Tablet, 1 TAB G-TUBE DAILY, TAB 03/01/17 Levothyroxine Sodium* (Levothyroxine Sodium*) 75 Mcg Tablet, 75 MCG G-TUBE BEFORE BREAKFAST, #30 TAB 03/01/17 Levalbuterol* (Xopenex*) 0.63 Mg/3 Ml Nebu, 1.25 MG HHN Q6H Y for WHEEZING AND SOB, EA 03/01/17 Fluticasone Propionate* (Fluticasone Propionate* Nasal) 50 Mcg/[place] - 16 Gm [place].susp, 1 SPRAY NASAL BID, #1 BOTTLE TO EACH NOSTRIL 03/01/17 Citalopram Hydrobromide* (Citalopram Hydrobromide*) 20 Mg Tablet, 20 MG G-TUBE DAILY, #30 TAB 03/01/17 Discontinued Reported Medications Miscellaneous* PUMP (Miscellaneous* PUMP) 1 Each Pump.resvr, 1 NEB ATROVENT 0.02 % Q2H Y for SHORTNESS OF BREATH, EA 03/01/17 Acetaminophen* (Acetaminophen*) 650 Mg Tablet, 650 MG PO Q6H Y for PAIN AND OR ELEVATED TEMP, #30 TAB 03/01/17 Prednisone* (Prednisone*) 10 Mg Tab, 10 MG G-TUBE DAILY, TAB 03/01/17 Pantoprazole Sodium (Protonix) 40 Mg Granpkt.dr, 40 MG G-TUBE DAILY 03/01/17 Hydrocodone/Acetaminophen ([place] 5-325 Tablet) 1 Each Tablet, 1 TAB PO Q6H Y for PAIN LEVEL 6-10, TAB 03/01/17 Metoprolol Tartrate* (Lopressor*) 100 Mg Tablet, 100 MG G-TUBE BID, #60 TAB 03/01/17 Lactobacillus Acidophilus* (Lactinex*) 1 Tab Chew, 1 TAB G-TUBE BID, TAB 03/01/17 Allergies Allergies: Coded Allergies: oxycodone (Verified Allergy, Unknown, RASH, OK WITH NORCO, 04/11/17) povidone-iodine (Verified Allergy, Unknown, 04/11/17) promethazine (Verified Allergy, Unknown, 04/11/17) soap (Verified Allergy, Unknown, 04/11/17) PMhx/Soc History of Surgery: Yes (base of tongue surgery 10 yrs ago, tracheostom, PEG tube) Anesthesia Reaction: No Hx Neurological Disorder: No Hx Respiratory Disorders: Yes Hx Cardiac Disorders: Yes (HTN, CHF, high cholesterol, tachycardia) Hx Psychiatric Problems: No Hx Miscellaneous Medical Probl: Yes (respiratory failure, tongue CA SP resection, dysphagia SP PEG) Hx Alcohol Use: No Hx Substance Use: No Hx Tobacco Use: No Physical Exam Vitals Vital Signs Date Time Temp Pulse Resp B/P Pulse Ox O2 Delivery O2 Flow Rate FiO2 04/11/17 10:33 128 17 100 100 04/11/17 10:32 129 22 96/76 100 Mechanical Ventilator 04/11/17 10:26 134 22 115/84 100 Mechanical Ventilator 04/11/17 10:14 162 14 174/112 100 Mechanical Ventilator 04/11/17 09:48 Non Rebreather 15 04/11/17 09:45 98.9 134 38 169/93 85 Physical Exam Const: [] Head: Atraumatic Eyes: Normal Conjunctiva ENT: Normal External Ears, Nose and Mouth. Neck: Full range of motion..~ No meningismus. Resp: Clear to auscultation bilaterally Cardio: Regular rate and rhythm, no murmurs Abd: Soft, non tender, non distended. Normal bowel sounds Skin: No petechiae or rashes Back: No midline or flank tenderness Ext: No cyanosis, or edema Neur: Awake and alert Psych: Normal Mood and Affect Result Diagram: 04/11/17 0900 04/11/17 0900 Results 24 hrs Laboratory Tests Test 04/11/17 09:00 04/11/17 09:14 White Blood Count 13.110^3/ul Red Blood Count 3.1510^6/ul Hemoglobin 10.9g/dl Hematocrit 34.6% Mean Corpuscular Volume 109.8fl Mean Corpuscular Hemoglobin 34.6pg Mean Corpuscular Hemoglobin Concent 31.5g/dl Red Cell Distribution Width 15.0% Platelet Count 57666^3/UL Mean Platelet Volume 10.8fl Neutrophils % 76.3% Lymphocytes % 13.7% Monocytes % 6.6% Eosinophils % 0.5% Basophils % 0.4% Nucleated Red Blood Cells % 0.2/100WBC Neutrophils # 10.010^3/ul Lymphocytes # 1.810^3/ul Monocytes # 0.910^3/ul Eosinophils # 0.110^3/ul Basophils # 0.110^3/ul Nucleated Red Blood Cells # 0.010^3/ul Prothrombin Time 12.6Sec Prothrombin Time Ratio 1.0 INR International Normalized Ratio 0.94 Activated Partial Thromboplast Time 26.6Sec Sodium Level 139mmol/L Potassium Level 4.9mmol/L Chloride Level 97mmol/L Carbon Dioxide Level 34mmol/L Anion Gap 13 Blood Urea Nitrogen 43mg/dl Creatinine 0.85mg/dl Glucose Level 125mg/dl Lactic Acid Level 1.2mmol/L Calcium Level 10.0mg/dl Total Bilirubin 0.1mg/dl Direct Bilirubin 0.00mg/dl Indirect Bilirubin 0.1mg/dl Aspartate Amino Transf (AST/SGOT) 118IU/L Alanine Aminotransferase (ALT/SGPT) 166IU/L Alkaline Phosphatase 110IU/L Troponin I 0.272ng/ml Total Protein 7.5g/dl Albumin 4.7g/dl Globulin 2.80g/dl Albumin/Globulin Ratio 1.67 Blood Gas Specimen Source Blood arterial Arterial Blood Date Drawn 04/11/2017 9:26:10 AM Arterial Blood pH (Temp corrected) 7.386 Arterial Blood pCO2 (Temp correct) 54.5mmhg Arterial Blood pO2 (Temp corrected) 58.9mmHG Arterial Blood HCO3 32.0mmol/L Arterial Blood Base Excess 5.6mmol/L Arterial Blood Oxygen Saturation 89.5mmHG Jonn Test ACCEPTAB Arterial Blood Gas Puncture Site Right Radial Arterial Blood Carboxyhemoglobin 0.4% Arterial Blood Methemoglobin 0.2% Blood Gas A-a O2 Differential 599.6mmHg Oxyhemoglobin Percent 89.0% Total Hemoglobin 12.2g/dl Blood Gas Temperature 37.0C Blood Gas Modality MASK - NRB FiO2 100.0% Blood Gas Notified Whom Lorna Blood Gas Notified Time 04/11/2017 9:34:43 AM Current Medications Medications (Trade) Dose Ordered Sig/Mitch Route PRN Reason Start Time Stop Time Status Last Admin Dose Admin Piperacillin Sod/ Tazobactam Sod (Zosyn 3.375gm/ 100 ml (Pmx)) 100 ml @ 200 mls/hr ONCE STAT IVPB 04/11/17 09:14 04/11/17 09:43 DC 04/11/17 09:39 Ondansetron HCl 4 mg 4 mg ONCE STAT IV 04/11/17 09:14 04/11/17 09:17 DC 04/11/17 09:38 Propofol 100 ml @ ud STK-MED ONCE .ROUTE 04/11/17 09:40 04/11/17 09:41 DC Vancomycin HCl 250 ml @ 125 mls/hr ONCE IVPB 04/11/17 10:00 04/11/17 11:59 Propofol 100 ml @ 0 mls/hr TITRATE ONCE IV 04/11/17 10:30 04/11/17 10:31 DC Sodium Chloride 1,000 ml @ 1,000 mls/hr Q1H ONCE IV 04/11/17 11:00 04/11/17 11:59 Sodium Chloride (NS) 1,000 ml @ 1,000 mls/hr Q1H ONCE IV 04/11/17 11:00 04/11/17 11:59 Lorazepam (Ativan) 2 mg STK-MED ONCE .ROUTE 04/11/17 11:13 04/11/17 11:14 DC Lorazepam 2 mg 2 mg ONCE ONCE IV 04/11/17 11:30 04/11/17 11:31 DC Midazolam HCl 50 ml @ 3 mls/hr ONCE STAT IV 04/11/17 11:14 04/12/17 03:53 Fentanyl (Sublimaze) 100 ml @ 2.5 mls/hr TITRATE ONCE IV 04/11/17 11:30 04/13/17 03:29 Aspirin (Aspirin) 300 mg ONCE ONCE NM 04/11/17 11:30 04/11/17 11:31 DC Procedures/MDM Pneumonia with sepsis. Patient was alert on arrival she was desaturating she was initially tried on BiPAP but she vomited to the BiPAP machine. She continued to vomit and desaturated into the 70s on 100% nonrebreather mask. She was then intubated for hypoxic respiratory failure. Chest x-ray reveals a large right-sided pneumonia. I spoke with her prior to intubation who agreed with life-saving measures. She was given vancomycin and Zosyn for healthcare acquired infection as she is from a alf and has recently been hospitalized. She was started on a propofol drip postintubation and her blood pressure went down to hypotensive levels. I turned off the PEEP on the ventilator. When propofol was stopped her blood pressure rebounded to slightly hypertensive levels. She was then started on a fentanyl and Versed drip. She has been administered 30 cc/kg of IV fluid as well. Am obtaining a CAT scan of her abdomen pelvis because of her extensive vomiting. Spoke with Dr. Cartagena who will be admitting the patient to the intensive care unit EKG interpretation #1: Sinus tachycardia rate of 132, indeterminate axis, no ST or T-wave changes concerning for acute ischemia, normal intervals. EKG interpretation #2: Sinus tachycardia rate of 150, left axis deviation, no ST or T-wave changes concerning for acute ischemia, normal intervals. electronic device monitor interpretation: Persistent sinus tachycardia improved with IV fluid administration. No other arrhythmias Chest x-ray interpretation: Very large right-sided pneumonia with possible infiltrates on left side as well., No pneumothorax, no widened mediastinum, no fractures Critical care time 48 minutes: This excludes all billable procedures but does include management of unstable vital signs, ventilator management, treatment of hypotension, immediate antibiotic administration, very careful fluid administration, multiple visits patient's bedside and greater than 20 minutes spent at the patient's bedside, chart reviewed, discussion with and admitting doctor. ET intubation note: Patient was preoxygenated with bag mask ventilation of the oxygenation could not get above 84% saturation, initially MAC 4 blade was used no cords are visualized, glide scope was then used without any visualization of cords. Bougie was then used with glide scope. 7.5 ET tube was advanced over the bougie leading to intubation with good color change in oxygenation became 100% after this. Patient tolerated procedure with no other complications. Departure Diagnosis: Primary Impression: Acute respiratory failure with hypoxia Additional Impressions: Sepsis due to pneumonia Vomiting Condition: Critical IZZY VELÁZQUEZ DO Apr 11, 2017 11:44
--- NOTE | 2017-04-11 12:17 | HP ---
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 Of concern , as well is the etiology of pt's emesis. Her abdomen is rigid, transaminases elevated and lactic acid slowly rising, concerning for an intraabdominal process. Also pt with elevated serum troponin without significant ST segment derangement, consistent with NSTEMI. #Hypoxic respiratory failure 2/2 aspiration pna -pt has been intubated -cont broad spectrum abx with vanc zosyn -send sputum culture though suspect will be polymicrobial given aspiration #abd distension, rising lactic acidosis, transaminitis: etio unclear. Differential is broad and includes but is not limited to peritonitis v bowel infarct v other empiric abx as above CT and US ordered for further evaluation low threshold for general surgery evaluation if CT and US negative, consider Gastrografin study of PEG tube to ensure contents not leaking into peritoneum #NSTEMI: suspect demand, cardiology on consult #adrenal insufficiency from prolonged steroids: cont current steroid regimen #Prophx: DVT, GI prophx #FEN: hold tube feeds pending abd imaging Pt critically ill. May need to consider goals of care re evaluation as this hospitalization continues Of note, I contacted Dr Valderrama regarding this patient and as he had been the primary seeing her at [facility], he has graciously agreed to meat pickler her care tomorrow. HPI/ROS Admit Date/Time Admit Date/Time Hx of Present Illness Hx obtained from chart, ER, and pt's as pt intubated at time of clinical encounter Chief complaint: hypoxic respiratory failure HPI 66 yo F with pmhx tongue ca 10 yrs ago sp resection and reconstruction, dysphagia x 18 mos of unclear etio warranting PEG placement 6 mos ago, persistent dysphagia c/b aspiration and several admissions for aspiration pneumonia was transferred from SNF today for hypoxia. Pt had been trach placed previous for chronic respiratory failure requiring chronic vent. However per , pt's trach was capped within the past week or so. Per discussion with , pt had an episode of emesis earlier today which proceeded her desaturation. She vomited again shortly after arrival to the ED. Her ET tube was suctioned just after she was intubated and significant gastric contents (brown liquid) was removed. Per no recent issues with PEG or feeding tolerance. Re trach, pt had a long hospital stay which started September 2016 for SOB 2/2 HAP with PSAR. Pt had a long hospital course requiring intubation, extubation followed by reintubation, eventually was trached. She was then transferred to [place] for further care. In December, she was at [place] and during a routine trach change, had profuse bleeding/epistaxis and a cardiac arrest with sROSC. Pt transferred to [facility] post arrest, no additional bleeding around trach site. Trach was replaced and ostomy revised. Pt last admitted here 5.20-5.25 for sepsis 2/2 CDiff and VAP. Treated with abx and transferred to [place]. ROS unable to obtain ROS from pt 2/2 intubated state PMH/Family/Social Past Medical History tongue ca as above chronic hypoxic respiratory failure sp trach placement though trach recently capped? dysphagia sp PEG placement hypothyroid HTN DM h/o cardiac arrest with spontaneous ROSC iatrogenic adrenal insufficiency, now on steroid taper Past Surgical History Past Surgical Hx: other Social History Smoking Status: Never smoker Exam/Review of Systems Vital Signs Vitals Vital Signs Date Time Temp Pulse Resp B/P Pulse Ox O2 Delivery O2 Flow Rate FiO2 04/11/17 11:38 134 34 108/95 100 Mechanical Ventilator 04/11/17 10:33 100 04/11/17 09:48 15 04/11/17 09:45 98.9 Exam Exam intubated and sedated bandage on throat over former trach site tachycardic coarse breath sounds abd rigid, mildly distended PEG site c/d/i femoral line in R groin no rashes no le edema Labs Result Diagram: 04/11/17 0900 04/11/17 0900 Medications Medications Current Medications Fentanyl (Sublimaze) 100 ml @ 2.5 mls/hr TITRATE ONCE IV Last administered on 04/11/17t 11:42; Admin Dose 2.5 MLS/HR; Start 04/11/17 at 11:30; Stop at 03:29 Procedures Procedures labs notable for transaminitis, troponin to 0.2, lactic acid now mildly uptrending CXR with ground glass STOLARGABBI MD Apr 11, 2017 12:17
[2017-04-11] MEDS ORDERED: NORepinephrine 8MG/250 ML (PMX 250 ML IV SCH (12:30)
[2017-04-11] MEDS ORDERED: VANCOMYCIN IV PER PHARMACY XX SCH (12:30)
--- NOTE | 2017-04-11 13:05 | CONS ---
Date/Time of Note Date/Time of Note DATE: 04/11/17 TIME: 12:55 Assessment/Plan Assessment/Plan Chief Complaint/Hosp Course IMP: 1.Positive trop-likely type 2 demand in setting of tachycardia and resp distress 2.abnl ecg 3.Tacycardia-S tach 4.HTN 5.Resp failue s/po intubation 6.Tongue ca 7. PAF h/o 8. Anemia 9. Incresaed LFT';s Recc: -Admit ICU -Teele monitoring -Gentle diuresis as tolerated -trend cardiac enzymes -improve sedation -BB -echo -BNP -Continue abx's and f/u cx data -wean vent as possible -asa Problems: Consultation Date/Type/Reason Admit Date/Time Date of Consultation: Apr 11, 2017 Type of Consultation: Cardiology Reason for Consultation positive troponin Referring Provider: GABBI GOMES MD Hx of Present Illness 66 y/o female with h/o tongue ca, dysphagia s/p PEG, hypothyroid, HTN. adrenal insuff, PAF who p/w c/o SOB requiring BIPAP with subsequent progression to intubation after vomiting and further desating while on BIPAP. TRop 0.1. ECG with ST and NSSTTWA's. Subjective hx not possible: pt critical status Respiratory: other (intubated) Cardiovascular: other (h/o AF) Gastrointestinal: vomiting Genitourinary: other (No hematuria) Neurologic: other (sedated) Endocrine: other (hypothyroid) Past Medical History Medical History: hypertension, hypothyroid, other (togue ca, dysphagia) Past Surgical History Past Surgical Hx: other (G tube, prior trach) Family History Significant Family History: no pertinent family hx Social History Alcohol Use: none Smoking Status: Never smoker Drug Use: none Exam/Review of Systems Vital Signs Vitals Vital Signs Date Time Temp Pulse Resp B/P Pulse Ox O2 Delivery O2 Flow Rate FiO2 04/11/17 12:52 99.6 141 40 113/87 100 Mechanical Ventilator 04/11/17 10:33 100 04/11/17 09:48 15 Exam Constitutional: other (sedated) ENMT: intubated Neck: jvd (9 cm water), supple Respiratory: other (upper airway rhoncherous sounds) Cardiovascular: other (tachycardic) Gastrointestinal: bowel sounds, soft Extremities: edema (trace) Neurological: other (sedated) Results Result Diagram: 04/11/17 0900 04/11/17 0900 Results 24 hrs Laboratory Tests Test 04/11/17 09:00 04/11/17 09:14 04/11/17 11:40 White Blood Count 13.1 #H Red Blood Count 3.15 L Hemoglobin 10.9 L Hematocrit 34.6 L Mean Corpuscular Volume 109.8 H Mean Corpuscular Hemoglobin 34.6 H Mean Corpuscular Hemoglobin Concent 31.5 L Red Cell Distribution Width 15.0 H Platelet Count 302 # Mean Platelet Volume 10.8 H Neutrophils % 76.3 Lymphocytes % 13.7 L Monocytes % 6.6 Eosinophils % 0.5 Basophils % 0.4 Nucleated Red Blood Cells % 0.2 H Neutrophils # 10.0 H Lymphocytes # 1.8 Monocytes # 0.9 Eosinophils # 0.1 Basophils # 0.1 Nucleated Red Blood Cells # 0.0 Prothrombin Time 12.6 Prothrombin Time Ratio 1.0 INR International Normalized Ratio 0.94 Activated Partial Thromboplast Time 26.6 Sodium Level 139 Potassium Level 4.9 Chloride Level 97 Carbon Dioxide Level 34 H Anion Gap 13 Blood Urea Nitrogen 43 H Creatinine 0.85 Glucose Level 125 Lactic Acid Level 1.2 2.1 Calcium Level 10.0 Total Bilirubin 0.1 L Direct Bilirubin 0.00 Indirect Bilirubin 0.1 Aspartate Amino Transf (AST/SGOT) 118 H Alanine Aminotransferase (ALT/SGPT) 166 H Alkaline Phosphatase 110 Troponin I 0.272 *H Total Protein 7.5 Albumin 4.7 Globulin 2.80 Albumin/Globulin Ratio 1.67 Blood Gas Specimen Source Blood arterial Arterial Blood Date Drawn 04/11/2017 9:26:10 AM Arterial Blood pH (Temp corrected) 7.386 Arterial Blood pCO2 (Temp correct) 54.5 H Arterial Blood pO2 (Temp corrected) 58.9 L Arterial Blood HCO3 32.0 H Arterial Blood Base Excess 5.6 H Arterial Blood Oxygen Saturation 89.5 L Jonn Test ACCEPTAB Arterial Blood Gas Puncture Site Right Radial Arterial Blood Carboxyhemoglobin 0.4 Arterial Blood Methemoglobin 0.2 Blood Gas A-a O2 Differential 599.6 H Oxyhemoglobin Percent 89.0 L Total Hemoglobin 12.2 Blood Gas Temperature 37.0 Blood Gas Modality MASK - NRB FiO2 100.0 Blood Gas Notified Whom Lorna Blood Gas Notified Time 04/11/2017 9:34:43 AM Medications Medications Current Medications Fentanyl (Sublimaze) 100 ml @ 2.5 mls/hr TITRATE ONCE IV Last administered on 04/11/17t 11:42; Admin Dose 2.5 MLS/HR; Start 04/11/17 at 11:30; Stop at 03:29 Famotidine (Pepcid) 20 mg Q12 PO ; Start 04/11/17 at 21:00 Enoxaparin Sodium 40 mg 40 mg DAILY SC ; Start 04/12/17 at 09:00 Piperacillin Sod/ Tazobactam Sod 100 ml @ 200 mls/hr Q6 IVPB ; Start 04/11/17 at 15:00 Norepinephrine/ Dextrose (Levophed/D5W) 500 ml @ 0 mls/hr TITRATE IV ; Start at 12:30 BEATRIZ STEINER Apr 11, 2017 13:05
[2017-04-11] MEDS ORDERED: FENTAnyl 50 MCG/ML VIAL ONE (13:11)
[2017-04-11] MEDS ORDERED: VANCOMYCIN 500MG/NS (PMX) 100 ML IVPB ONE (14:00)
[2017-04-11] MEDS ORDERED: FENTAnyl 50 MCG/ML VIAL IV ONE (14:30)
[2017-04-11] MEDS: DIGOXIN 500 MCG INJ IV SCH ×2 (14:42→20:51)
[2017-04-11 14:52] LABS: ADD UMIC YES; UR ASCORBIC ACID 40 mg/dL (NEGATIVE); UR BILIRUBIN (Dip) NEGATIVE (NEGATIVE); UR BLOOD (Dip) NEGATIVE (NEGATIVE); UR CLARITY SLIGHTLY CLOUDY (CLEAR); UR COLOR YELLOW (YELLOW); UR GLUCOSE (Dip) NEGATIVE (NEGATIVE); UR KETONES (Dip) NEGATIVE (NEGATIVE); UR LEUKOCYTE ESTERASE (Dip) NEGATIVE Leu/ul (NEGATIVE); UR MUCUS FEW /HPF (NONE SEEN); UR NITRITE (Dip) NEGATIVE (NEGATIVE); UR RBC 1 /HPF (0-5); UR SPECIFIC GRAVITY (Dip) 1.019 (1.003-1.030); UR TOTAL PROTEIN (Dip) 2+ mg/dl (NEGATIVE); UR UROBILINOGEN (Dip) NEGATIVE (NEGATIVE)
--- NOTE | 2017-04-11 15:08 | RADRPT ---
PROCEDURE: XR Chest. CLINICAL INDICATION: 66-year-old female to assess endotracheal tube in NG tube placement. TECHNIQUE: Single frontal view of the chest was obtained. COMPARISON: Chest x-ray January 12, 2017 03:55 p.m. FINDINGS: The endotracheal tube is well-positioned with its tip 2.8 cm superior to the sammy. The NG tube is in place with its tip distal to the GE junction of the field of view. There are degenerative osteo phytes in the thoracic spine. There are clips in the lower right neck related to surgery. The hear t is mildly enlarged. The cardiomediastinal silhouette and hilar structures are normal. The pulmona ry vasculature is increased. There are vascular calcifications in the aortic arch. There are worsen ing mixed interstitial and pulmonary alveolar infiltrates which are more severe in the right lung th an left. There is a right pleural effusion. IMPRESSION: 1. Cardiomegaly with asymmetric pulmonary edema and a small to moderate size right pleural effusion suspicious for CHF. Pulmonary infiltrates have worsened as compared to 01/12/2017. The presence of a superimposed pneumonia should be considered in the differential diagnosis. 2. Endotracheal tube is well-positioned 2.8 cm superior to the sammy. 3. An NG tube is well positioned distal to the GE junction. 4. Other findings as described above. RPTAT:AAJJ Physician Alison Date Time Electronically viewed and signed by Physician Alison on 04/11/2017 15:07 LOAN/
[2017-04-11] MEDS: VASOPRESSIN 100 UNIT in SOD CHLORIDE 0.9% 95 ML IV SCH (15:12)
[2017-04-11] MEDS ORDERED: HYPOGLYCEMIA PROTOCOL when Glucose is <70 mg/dL or symptomatic <90 mg/dL XX ONE (15:30)
[2017-04-11] MEDS ORDERED: PHENYLephrine 20MG IN 250 ML 250 ML ONE (15:56)
[2017-04-11] MEDS ORDERED: PHENYLephrine 20MG IN 250 ML 250 ML IV ONE (16:00)
[2017-04-11 16:01] LABS: AADO2 Arterial 590.5 mmHg (7.0-24.0); Arterial Base Excess -2.7 mmol/L (-3.0-3); Arterial COHb 0.3 % (0.0-3.0); Arterial HCO3 24.7 mmol/L (22.0-26.0); Arterial MetHb 0.5 % (0.0-1.5); Arterial Total Hemglobin 12.1 g/dl (12.0-18.0); Blood Gas Low PEEP Setting 0 cmH2O; MODE VENT - AC
[2017-04-11] MEDS ORDERED: DEXTROSE 50% 50 ML SYRINGE IV PRN (16:30)
[2017-04-11] MEDS ORDERED: GLUCAGON 1 MG INJ IM PRN (16:30)
[2017-04-11] MEDS ORDERED: GLUCOSE GEL 15 GRAM TUBE PO PRN ×2 (16:30)
[2017-04-11] MEDS ORDERED: GLUCOSE GEL 15 GRAM TUBE BUCCAL PRN (16:30)
--- NOTE | 2017-04-11 16:33 | RADRPT ---
PROCEDURE: US Abdomen. CLINICAL INDICATION: 10 7- TECHNIQUE: Multiple real-time images were acquired of the patient's abdomen and retroperitoneum ut ilizing a high resolution transducer. COMPARISON: None FINDINGS: The liver is normal in echogenicity and measures 15.9 cm. No focal hepatic masses are seen. The g allbladder is physiologically distended. There are small gallstones in the neck of the gallbladder. There is no gallbladder wall thickening or pericholecystic fluid.. Common bile duct is mildly dila chirag measuring 6.5 mm. No obvious choledocholithiasis is seen. Midline images demonstrate the pancreas to be normal in echogenicity without obvious inflammatory ch wandy. Aorta is normal in caliber and measures 1.7 cm Survey views of the kidneys demonstrate no evidence of hydronephrosis or renal calculi. The right k idney measures 10.0 cm, IMPRESSION: 1. Cholelithiasis. There is no gallbladder wall thickening or pericholecystic fluid to suggest acu te cholecystitis. 2. Common bile duct mildly dilated measuring 6.5 mm. Consider MRCP for further evaluation RPTAT: .Skyler Kerns MD, MD Date Time Electronically viewed and signed by .Skyler Kerns MD, MD on 04/11/2017 16:33 .W/
[2017-04-11] MEDS: INSULIN ASPART [NOVOLOG] 3 ML PEN SC SCH ×2 (17:00→21:00)
[2017-04-11] MEDS: PIPER-TAZO 3.375 GM IV (PMX) 100 ML IVPB SCH ×2 (17:59→22:28)
[2017-04-11] MEDS ORDERED: HYDROCORTISONE 100 MG INJ IV ONE (18:00)
--- NOTE | 2017-04-11 18:33 | RADRPT ---
Echocardiogram Report Patient Name: REJI HARTMAN Gender: Female Date: 1950 Study Date: 11-Apr-2017 Paving And Surfacing Labourer: Farzana Rodriguez RDCS Location: 4 Ref. Physician: BEATRIZ NELSON Quality: Adequate Procedures: Transthoracic echocardiogram with complete 2D, M-Mode, and doppler examination. Indications: PAF/AFL/RESP FAILURE. 2D/M Mode Doppler Measurement Value Normal Ranges Measurement Value Normal Ranges LVIDd 2D 4.0 3.5 - 5.6 cm PATO Vmax 1.3 cm2 LVIDs 2D 2.2 2.1 - 4.1 cm PATO VTI 1.2 cm2 FS 2D 44.7 % AV Mean Sabino 2.2 m/sec LVPWd 2D 1.1 0.6 - 1.1 cm AV Mean PG 24.0 mmHg IVSd 2D 1.0 0.6 - 1.1 cm AV Peak Sabino 3.3 m/sec IVS/LVPW 2D 0.9 AV Peak PG 44.0 mmHg AoR Diam 2D 2.4 2.0 - 3.7 cm AV VTI 54.4 cm LA/Ao 2D 1 0 - 1 LVOT Mean Sabino 1.0 m/sec EDV 2D 65.5 cm3 LVOT Mean PG 5.0 mmHg ESV 2D 11.1 cm3 LVOT Peak Sabino 1.5 m/sec LA Dimen 2D 2.9 2.3 - 4.0 cm LVOT Peak PG 9.0 mmHg LVOT Diam 1.9 cm LVOT VTI 23.3 cm LVOT Area 2.8 cm2 MV E Peak Sabino 1.0 m/sec MV A Peak Sabino 1.4 m/sec MV E/A 0.7 MV Decel Time 137 msec MV E/A 0.7 TR Peak Sabino 2.8 m/sec TR Peak PG 32.0 mmHg RVSP 35.0 mmHg Findings Left Ventricle: Normal left ventricular systolic function. Normal left ventricular cavity size. Mild concentric left ventricular hypertrophy. Ejection fraction is visually estimated at 55 %. Tissue Doppler/Mitral Doppler indices are consistent with impaired relaxation (Stage I diastolic dysfunction). Right Ventricle: Normal right ventricular size. Normal right ventricular systolic function. Left Atrium: The left atrium is normal in size. Right Atrium: The right atrium is normal in size. Mitral Valve: Mitral valve leaflets appear mildly thickened. Mild mitral annular calcification. Trace mitral regurgitation. Aortic Valve: Moderate aortic stenosis. Aortic valve Max velocity 3.33 m/sec. Max PG 44.00 mmHg. Mean PG 24.00 mmHg. Aortic valve area 1.22 cm2. No aortic regurgitation. Tricuspid Valve: Normal appearance of the tricuspid valve. Estimated peak PA systolic pressure 35 mmHg. There is mild tricuspid regurgitation. Pulmonic Valve: Normal pulmonic valve appearance. Pericardium: Small pericardial effusion. Aorta: Normal aortic root. IVC: Normal size and normal respiratory collapse consistent with normal right atrial pressure. Conclusions 1.Normal left ventricular systolic function. Normal left ventricular cavity size. Mild concentric left ventricular hypertrophy. Ejection fraction is visually estimated at 55 %. Tissue Doppler/Mitral Doppler indices are consistent with impaired relaxation (Stage I diastolic dysfunction). 2.Mitral valve leaflets appear mildly thickened. Mild mitral annular calcification. Trace mitral regurgitation. 3.Moderate aortic stenosis. Aortic valve Max velocity 3.33 m/sec. Max PG 44.00 mmHg. Mean PG 24.00 mmHg. Aortic valve area 1.22 cm2. No aortic regurgitation. 4.Normal appearance of the tricuspid valve. Estimated peak PA systolic pressure 35 mmHg. There is mild tricuspid regurgitation. 5.Trivial to small pericardial effusion. Electronically Signed By: Beatriz Nelson 11-Apr-2017 18:32:37 -0700 Patient Name: REJI HARTMAN Study Date: 11-Apr-2017 [id number]
[2017-04-11] MEDS: DEXTROSE 50% 50 ML SYRINGE IV PRN ×2 (19:05→19:26)
[2017-04-11] MEDS ORDERED: ACETAMINOPHEN 1000MG/100ML IV 100 ML IVPB ONE (19:30)
[2017-04-11] MEDS ORDERED: ACETAMINOPHEN 650 MG SUPP PR ONE (19:30)
[2017-04-11 20:00] VITALS: TEMP 100.6
[2017-04-11] MEDS: PHENYLephrine 40 MG in DEXTROSE 5% 496 ML IV SCH ×2 (20:01→22:52)
--- NOTE | 2017-04-11 20:38 | RADRPT ---
PROCEDURE: CT scan of the abdomen and pelvis without IV contrast. CLINICAL INDICATION: 66-year-old female with sepsis. Rule out stone. TECHNIQUE: Thin section axial, coronal and sagittal images were performed through the abdomen and pelvis without contrast. Radiation Dose: CTDI: 6.4 and DLP: 360 One or more of the following dose reduction techniques were used: - Automated exposure control. - Adjustment of the mA and/or kV according to patient size. Use of iterative reconstruction technique. COMPARISON: Chest x-ray 11/15/2016 06:18 a.m. FINDINGS: Soft tissues: There is mild subcutaneous stranding suspicious for mild anasarca.. Lungs and pleural spaces: There are air bronchograms in the right and left lower lobes. There are p atchy alveolar infiltrates in the right middle lobe and dorsal aspect of the lingula. There ground- glass infiltrates elsewhere in the bases of the lungs. Findings are consistent with a pneumonia. N o pleural effusion or pulmonary nodule is identified. Heart: There is a small pericardial effusion. The heart is normal in size. The liver, common bile duct and gallbladder: Liver measures 14.2 cm AP. There is sludge and small s tones in the gallbladder. No gallbladder wall thickening is noted with some pericholecystic fluid i s present. Gastrointestinal: An NG tube passes through the esophagus and into the stomach. Is well positioned. There is a percutaneous gastrostomy tube positioned in the antrum of the stomach. Mild symmetric gastric wall thickening is noted and may reflect incomplete distension. The small bowel loops have a normal caliber. There is fluid in the cecum and ascending colon. There is residual contrast aminah g the mucosa of the cecum and in the rectosigmoid areas. There is an appendiceal stump measuring 6. 8 mm as on contrast noted in the blunting of the appendix. Pancreas: Normal. The extrahepatic common bile duct is normal. Kidneys, bladder and adrenal glands : The left adrenal gland is enlarged and has somewhat ill-define d borders. An MRI of the adrenal gland with IV contrast can be considered for further evaluation. Hounsfield units measure 17.5. The right adrenal gland is normal. A 1 mm nephrolith is noted in the upper pole of the right kidney. There is an adjacent 1 mm nephrol ith in the upper pole of the right kidney. The right left kidneys are otherwise unremarkable. No e vidence of hydronephrosis. A Latif catheter is noted in the urinary bladder. Urinary bladder is in completely distended and contains some air. No bladder stone or Scratch no bladder stone is identif ied. The neural bladder wall is not assessed to slight increased attenuation of a fluid in the urin elxus bladder. Urinalysis is recommended. Spleen: The spleen is normal in size. There is a 0.9 cm accessory splenule. There is no evidence o f ascites. Lymph nodes: No enlarged periportal, retroperitoneal, mesenteric, pelvic sidewall or inguinal lymph nodes are identified. Reproductive system and pelvis : The uterus is unremarkable. A 1.4 cm cyst is identified ventral to the right side of the uterus which may be a poorly visualized right ovarian cyst. This is better e valuated with ultrasound. No free fluid is noted in the pelvis. The left ovary is not visualized. Bony elements: There are degenerative osteophytes in the thoracic and lumbar spine. There is disk s pace narrowing at L3-4, L4-5 and L5-S1. There are degenerative changes in the facets at L4-5 and L5 -S1. There is no evidence of spondylolysis or spondylolisthesis. There is a broad central and para central disk bulge measuring up to 4.8 mm a central disk herniation may be present L5-S1 measuring u p to 8 mm AP. This may result in a soft tissue central canal stenosis. Vasculature: There is a percutaneous catheter in the right femoral vein. There are vascular calcifi cations in the common femoral arteries internal iliac arteries common iliac arteries, thoracic and a bdominal aorta. IMPRESSION: 1. Bibasilar infiltrates are identified consistent with pneumonia. 2. Small pericardial effusion. 3. Sludge and small gallstones in the gallbladder with pericholecystic fluid. Acute cholecystitis is not excluded. Clinical correlation is needed. 4. A Latif catheter is identified in the urinary bladder. The bladder wall is not visualized due to increased attenuation of a fluid-containing the urinary bladder. Urinalysis is recommended. 5. Enlarged left adrenal gland measuring up to 3.1 x 2.3 by 1.8 cm with ill-defined borders. An MR I of the adrenal gland with without Gadavist is recommended for further evaluation. An adrenal harleen calin or metastasis might present this fashion. 6. Atherosclerotic vascular disease with a central venous catheter entering the right inguinal canal with its tip in the right femoral vein. 7. Disk space narrowing with possible central disk herniation at L5-S1 measuring up to apical meters AP which is better evaluated with MRI. #80 anasarca. 9. Satisfactory positioning of the gastrostomy tube and nasogastric tube. RPTAT:AAJJ Physician Alison Date Time Electronically viewed and signed by Aleksandar Linder, Physician on 04/11/2017 20:37 LOAN/
[2017-04-11] MEDS ORDERED: NON-FORMULARY/PATIENT OWN MED (Insulin Lispro (Humalog) 0 UNIT) SQ SCH (21:00)
[2017-04-11] MEDS: METOPROLOL 25 MG TAB NGT SCH (21:00)
[2017-04-11] MEDS: FAMOTIDINE 20 MG TAB PO SCH (21:00)
[2017-04-11] MEDS: HYDROCORTISONE 5 MG TAB GTB SCH (21:00)
[2017-04-11 21:30] VITALS: BP 115/50
[2017-04-11 21:33] VITALS: PULSE 126
[2017-04-11 21:46] VITALS: RESP 20
[2017-04-11 22:19] VITALS: PULSE 132
[2017-04-11] MEDS: SOD CHLORIDE 0.9% 1,000 ML IV SCH (22:27)
[2017-04-11] MEDS: HYDROCORTISONE 100 MG INJ IV SCH (22:28)
[2017-04-11] MEDS: MIDAZOLAM (DRIP) 50 mg/50 mL 50 ML IV SCH (23:18)
[2017-04-11 23:27] VITALS: RESP 18
[2017-04-12] VITALS (82 sets, daily range): BP systolic 58–139; BP diastolic 41–91; PULSE 72–136; RESP 18–33
[2017-04-12 00:01] LABS: AADO2 Arterial 587.3 mmHg (7.0-24.0); Allen Test ACCEPTAB; Arterial Base Excess -8.1 mmol/L (-3.0-3); Arterial COHb 0.3 % (0.0-3.0); Arterial Fraction of Oxyhgb 91.9 % (93.0-99.0); Arterial HCO3 20.1 mmol/L (22.0-26.0); Arterial MetHb 0.4 % (0.0-1.5); Arterial Total Hemglobin 11.2 g/dl (12.0-18.0); Blood Gas Low PEEP Setting 0 cmH2O; MODE VENT - AC
[2017-04-12] MEDS: PIPER-TAZO 3.375 GM IV (PMX) 100 ML IVPB SCH ×5 (01:00→23:56)
[2017-04-12] MEDS: INSULIN ASPART [NOVOLOG] 3 ML PEN SC SCH ×6 (01:00→20:43)
[2017-04-12] MEDS ORDERED: SOD CHLORIDE 0.9% 1,000 ML IV ONE (02:30)
[2017-04-12] MEDS: PHENYLephrine 40 MG in DEXTROSE 5% 496 ML IV SCH (02:52)
[2017-04-12 05:23] LABS: AADO2 Arterial 599.4 mmHg (7.0-24.0); Allen Test ACCEPTAB; Arterial COHb 0.3 % (0.0-3.0); Arterial Fraction of Oxyhgb 92.4 % (93.0-99.0); Arterial HCO3 17.2 mmol/L (22.0-26.0); Arterial MetHb 0.3 % (0.0-1.5); Arterial Total Hemglobin 11.6 g/dl (12.0-18.0); MODE VENT - AC
[2017-04-12 06:18] LABS: ABNORMAL IP MESSAGE 1; HEMATOCRIT 38.3 % (37.0-47.0); HEMOGLOBIN 12.1 g/dl (12.0-16.0); MEAN CORPUSCULAR HEMOGLOBIN 35.7 pg (29.0-33.0); MEAN CORPUSCULAR HGB CONC 31.6 g/dl (32.0-37.0); MEAN PLATELET VOLUME 12.3 fl (7.4-10.4); RED BLOOD COUNT 3.39 10^6/ul (4.20-5.40); RED CELL DISTRIBUTION WIDTH 14.6 % (11.5-14.5); WHITE BLOOD COUNT 27.9 10^3/ul (4.8-10.8)
[2017-04-12 06:33] LABS: ALANINE AMINOTRANSFERASE 210 IU/L (13-69); ALBUMIN 3.5 g/dl (3.3-4.9); ALBUMIN/GLOBULIN RATIO 1.52; ALKALINE PHOSPHATASE 68 IU/L (42-121); ANION GAP 16 (8-16); ASPARTATE AMINO TRANSFERASE 185 IU/L (15-46); BILIRUBIN,INDIRECT 0.1 mg/dl (0-1.1); BILIRUBIN,TOTAL 0.1 mg/dl (0.2-1.3); BLOOD UREA NITROGEN 39 mg/dl (7-20); CALCIUM 8.1 mg/dl (8.4-10.2); CARBON DIOXIDE 21 mmol/L (21-31); CHLORIDE 109 mmol/L (97-110); CREATININE 1.21 mg/dl (0.44-1.00); GLUCOSE 170 mg/dl (70-220); POTASSIUM 4.7 mmol/L (3.5-5.1); SODIUM 141 mmol/L (135-144); TOTAL PROTEIN 5.8 g/dl (6.1-8.1)
[2017-04-12] MEDS: SOD CHLORIDE 0.9% 1,000 ML IV SCH ×3 (06:43→17:23)
[2017-04-12] MEDS: LEVOTHYROXINE 75 MCG TAB GTB SCH (06:43)
[2017-04-12 06:58] LABS: PLATELET COUNT 274 10^3/UL (140-415)
--- NOTE | 2017-04-12 08:18 | CONS ---
Date/Time of Note Date/Time of Note DATE: 04/12/17 TIME: 08:04 Assessment/Plan Assessment/Plan Additional Assessment/Plan 1. Nonoliguric aly. She was previously normal baseline creatinine. Etiology is likely secondary to septic HPI with possible ATN, hemodynamics. Plan at this point is just a UA with microanalysis will check urine lites. Will continue current treatment plan continue present support IV fluids IV antibiotics. Maintain map above 65. Otherwise continue supportive care renally dose meds avoid nephrotoxins 2. Septic shock. Etiology is likely secondary to aspiration pneumonia pneumonitis. The possibility of acute cholecystitis is a consideration. CT scan showed findings of pericholecystic fluid. Patient also has markedly elevated lactic acid. Plan at this point is to continue current treatment plan continue IV fluids IV pressors IV antibiotics. Will place an ID consult and general surgery consult for evaluation. Monitor closely 3. Ventilator dependent respiratory failure. Etiology secondary to pneumonia, CHF. Vent settings ABG been reviewed. Continue current vent settings follow- up with pulmonary 4. Volume overload. Etiology likely secondary to sepsis capillary leak. Possible diastolic heart failure. At this point would defer any diuretic therapy as patient is in septic shock. We will continue to monitor. 5. Elevated troponin. Possible non-STEMI type II. We will continue to monitor follow-up with cardiology 6. History of adrenal insufficiency. Patient currently on stress steroids. We will continue 7. Acute encephalopathy etiologies toxic metabolic. Continue to monitor 8. Transaminitis. Etiology possibly multifactorial ischemic hepatitis, acute cholecystitis, sepsis. Monitor serial lft 9. Hypothyroidism continue Synthroid 10. Anemia. Monitor H&H 11. Mineral bone disorder will monitor calcium phosphorus levels 12. h/o tongue cancer with resection 13. History of diastolic heart failure/coronary disease -Continue medical management Consultation Date/Type/Reason Admit Date/Time Reason for Consultation AK I Hx of Present Illness This is a 66-year-old female with a past medical history of tongue cancer status post section reconstruction 10 years ago.. The patient approximately 16 months ago had clinical decompensation respiratory failure underwent trach and PEG. The patient was transferred to [facility] where she underwent weaning off of that. The patient was subsequently [facility] as had previous hospital stays for sepsis pneumonia and respiratory failure. Most recently in her last hospital stay follow the patient was successfully decannulated and removal with removal of PEG. She was subsequently transferred back to long-term facility. She now presents yesterday to [facility] emergency room with hypoxemic respiratory failure. After an episode of acid emesis and concern of aspiration pneumonitis pneumonia. In the emergency room the patient was critically ill was intubated was in septic shock placed on pressure support IV pressors and IV antibiotics and transferred to the intensive care unit for further care. In the emergency room the patient had a CT of the abdomen pelvis which showed evidence of Hayley pericholecystic fluid possible cholecystitis. Patient also had noted infiltrates in her lungs bilaterally. Overnight intensive care unit patient has been critically ill was on 3 pressors. On no IV fluids IV antibiotics. Terms of patient's renal history. Patient had normal renal function on admission her creatinine is increased in the last 12 hours. Urinary output has been marginal. There is been no reports of hemoptysis hematemesis hematochezia. 66 yo F with history of tongue ca sp resection and reconstruction 10 yrs ago, dysphagia x 18 mos c/b chronic aspiration and chronic hypoxic respiratory failure with h/o trach placement with recent capping admitted for hypoxic respiratory failure following an episode of emesis earlier today, suspect aspiration pneumonia and pneumonitis as cause of respiratory failure. Unable to obtain patient is obtunded Respiratory: other (intubated) Cardiovascular: other (h/o AF) Gastrointestinal: vomiting Genitourinary: other (No hematuria) Neurologic: other (sedated) Endocrine: other (hypothyroid) Past Medical History For HPI Medical History: hypertension, hypothyroid, other ([place] ca, dysphagia) Past Surgical History Status post trach and PEG Past Surgical Hx: other (G tube, prior trach) Social History Alcohol Use: none Smoking Status: Never smoker Drug Use: none Exam/Review of Systems Vital Signs Vitals Vital Signs Date Time Temp Pulse Resp B/P Pulse Ox O2 Delivery O2 Flow Rate FiO2 04/12/17 06:00 98.4 113 26 100/66 100 Mechanical Ventilator 04/12/17 05:40 100 04/11/17 09:48 15 Intake and Output 04/11/17 04/11/17 04/12/17 15:00 23:00 07:00 Intake Total 3350 ml 340.4 ml 2679.55 ml Output Total 370 ml 270 ml Balance 3350 ml -29.6 ml 2409.55 ml Exam ntubated and sedated bandage on throat over former trach site tachycardic coarse breath sounds abd rigid, mildly distended PEG site c/d/i femoral line in R groin no rashes no le refugio Results Result Diagram: 04/12/17 0505 04/12/17 0505 Results 24 hrs Laboratory Tests Test 04/11/17 09:00 04/11/17 09:14 04/11/17 11:40 04/11/17 14:00 White Blood Count 13.1 #H Red Blood Count 3.15 L Hemoglobin 10.9 L Hematocrit 34.6 L Mean Corpuscular Volume 109.8 H Mean Corpuscular Hemoglobin 34.6 H Mean Corpuscular Hemoglobin Concent 31.5 L Red Cell Distribution Width 15.0 H Platelet Count 302 # Mean Platelet Volume 10.8 H Neutrophils % 76.3 Lymphocytes % 13.7 L Monocytes % 6.6 Eosinophils % 0.5 Basophils % 0.4 Nucleated Red Blood Cells % 0.2 H Neutrophils # 10.0 H Lymphocytes # 1.8 Monocytes # 0.9 Eosinophils # 0.1 Basophils # 0.1 Nucleated Red Blood Cells # 0.0 Prothrombin Time 12.6 Prothrombin Time Ratio 1.0 INR International Normalized Ratio 0.94 Activated Partial Thromboplast Time 26.6 Sodium Level 139 Potassium Level 4.9 Chloride Level 97 Carbon Dioxide Level 34 H Anion Gap 13 Blood Urea Nitrogen 43 H Creatinine 0.85 Glucose Level 125 Lactic Acid Level 1.2 2.1 2.3 H Calcium Level 10.0 Total Bilirubin 0.1 L Direct Bilirubin 0.00 Indirect Bilirubin 0.1 Aspartate Amino Transf (AST/SGOT) 118 H Alanine Aminotransferase (ALT/SGPT) 166 H Alkaline Phosphatase 110 Troponin I 0.272 *H 1.140 *H Total Protein 7.5 Albumin 4.7 Globulin 2.80 Albumin/Globulin Ratio 1.67 Blood Gas Specimen Source Blood arterial Arterial Blood Date Drawn 04/11/2017 9:26:10 AM Arterial Blood pH (Temp corrected) 7.386 Arterial Blood pCO2 (Temp correct) 54.5 H Arterial Blood pO2 (Temp corrected) 58.9 L Arterial Blood HCO3 32.0 H Arterial Blood Base Excess 5.6 H Arterial Blood Oxygen Saturation 89.5 L Jonn Test ACCEPTAB Arterial Blood Gas Puncture Site Right Radial Arterial Blood Carboxyhemoglobin 0.4 Arterial Blood Methemoglobin 0.2 Blood Gas A-a O2 Differential 599.6 H Oxyhemoglobin Percent 89.0 L Total Hemoglobin 12.2 Blood Gas Temperature 37.0 Blood Gas Modality MASK - NRB FiO2 100.0 Blood Gas Notified Whom Lorna Blood Gas Notified Time 04/11/2017 9:34:43 AM Urine Color YELLOW Urine Clarity SLIGHTLY CLOUDY A Urine pH 6.0 Urine Specific [place] 1.019 Urine Ketones NEGATIVE Urine Nitrite NEGATIVE Urine Bilirubin NEGATIVE Urine Urobilinogen NEGATIVE Urine Leukocyte Esterase NEGATIVE Urine Microscopic RBC 1 Urine Microscopic WBC 3 Urine Mucus FEW A Urine Hemoglobin NEGATIVE Urine Glucose NEGATIVE Urine Total Protein 2+ H B-Type Natriuretic Peptide 8000 H Thyroid Stimulating Hormone (TSH) 4.110 Test 04/11/17 15:05 04/11/17 16:30 04/11/17 18:15 04/11/17 18:58 Blood Gas Specimen Source Blood arterial Arterial Blood Date Drawn 04/11/2017 3:50:50 PM Arterial Blood pH (Temp corrected) 7.274 *L Arterial Blood pCO2 (Temp correct) 54.5 H Arterial Blood pO2 (Temp corrected) 68.0 L Arterial Blood HCO3 24.7 Arterial Blood Base Excess -2.7 Arterial Blood Oxygen Saturation 90.7 L Jonn Test N/A Arterial Blood Gas Puncture Site LB Arterial Blood Carboxyhemoglobin 0.3 Arterial Blood Methemoglobin 0.5 Blood Gas A-a O2 Differential 590.5 H Oxyhemoglobin Percent 90.0 L Total Hemoglobin 12.1 Blood Gas Temperature 37.0 Blood Gas Respiration Rate 16.0 Blood Gas Actual Respiration Rate 25 Blood Gas Modality VENT - AC FiO2 100.0 Blood Gas Tidal Volume 450.0 Blood Gas Low PEEP Setting 0 Blood Gas Critical Value Read Back MARILU TIMMONS Blood Gas Notified Whom Lorna Blood Gas Notified Time 04/11/2017 4:01:43 PM Lactic Acid Level 2.6 H 3.6 H Troponin I 2.320 *H Bedside Glucose 63 L Test 04/11/17 19:23 04/11/17 19:54 04/11/17 20:30 04/11/17 21:33 Bedside Glucose 77 115 130 Lactic Acid Level 5.0 *H Test 04/11/17 22:10 04/11/17 23:45 04/12/17 01:00 04/12/17 01:07 Lactic Acid Level 5.2 *H 5.2 *H Blood Gas Specimen Source Blood arterial Arterial Blood Date Drawn 04/11/2017 11:45:16 PM Arterial Blood pH (Temp corrected) 7.196 *L Arterial Blood pCO2 (Temp correct) 53.0 H Arterial Blood pO2 (Temp corrected) 72.7 L Arterial Blood HCO3 20.1 L Arterial Blood Base Excess -8.1 L Arterial Blood Oxygen Saturation 92.5 L Jonn Test ACCEPTAB Arterial Blood Gas Puncture Site Right Radial Arterial Blood Carboxyhemoglobin 0.3 Arterial Blood Methemoglobin 0.4 Blood Gas A-a O2 Differential 587.3 H Oxyhemoglobin Percent 91.9 L Total Hemoglobin 11.2 L Blood Gas Temperature 37.0 Blood Gas Respiration Rate 16.0 Blood Gas Actual Respiration Rate 18 Blood Gas Modality VENT - AC FiO2 100.0 Blood Gas Tidal Volume 500.0 Blood Gas Low PEEP Setting 0 Blood Gas Critical Value Read Back ELISHA MICHEL Blood Gas Notified Whom JANETTE Blood Gas Notified Time 04/12/2017 12:01:06 AM Troponin I 2.040 *H Bedside Glucose 173 Test 04/12/17 04:26 04/12/17 05:00 04/12/17 05:05 Bedside Glucose 184 Blood Gas Specimen Source Blood arterial Arterial Blood Date Drawn 04/12/2017 5:17:19 AM Arterial Blood pH (Temp corrected) 7.222 *L Arterial Blood pCO2 (Temp correct) 42.8 Arterial Blood pO2 (Temp corrected) 70.8 L Arterial Blood HCO3 17.2 L Arterial Blood Base Excess -10.0 L Arterial Blood Oxygen Saturation 93.0 L Jonn Test ACCEPTAB Arterial Blood Gas Puncture Site Right Radial Arterial Blood Carboxyhemoglobin 0.3 Arterial Blood Methemoglobin 0.3 Blood Gas A-a O2 Differential 599.4 H Oxyhemoglobin Percent 92.4 L Total Hemoglobin 11.6 L Blood Gas Temperature 37.0 Blood Gas Respiration Rate 22.0 Blood Gas Actual Respiration Rate 22 Blood Gas Modality VENT - AC FiO2 100.0 Blood Gas Tidal Volume 500.0 Blood Gas Critical Value Read Back MARILU MCINTYRE Blood Gas Notified Whom OMAR Blood Gas Notified Time 04/12/2017 5:23:02 AM White Blood Count 27.9 #H Red Blood Count 3.39 L Hemoglobin 12.1 Hematocrit 38.3 Mean Corpuscular Volume 113.0 H Mean Corpuscular Hemoglobin 35.7 H Mean Corpuscular Hemoglobin Concent 31.6 L Red Cell Distribution Width 14.6 H Platelet Count 274 Mean Platelet Volume 12.3 H Neutrophils % Lymphocytes % Monocytes % Eosinophils % Basophils % Neutrophils # Lymphocytes # Monocytes # Eosinophils # Basophils # Sodium Level 141 Potassium Level 4.7 Chloride Level 109 # Carbon Dioxide Level 21 # Anion Gap 16 Blood Urea Nitrogen 39 H Creatinine 1.21 H Glucose Level 170 Lactic Acid Level 5.1 *H Calcium Level 8.1 L Total Bilirubin 0.1 L Direct Bilirubin 0.00 Indirect Bilirubin 0.1 Aspartate Amino Transf (AST/SGOT) 185 H Alanine Aminotransferase (ALT/SGPT) 210 H Alkaline Phosphatase 68 Total Protein 5.8 #L Albumin 3.5 # Globulin 2.30 Albumin/Globulin Ratio 1.52 Random Cortisol Pending Medications Medications Current Medications Fentanyl (Sublimaze) 100 ml @ 2.5 mls/hr TITRATE ONCE IV Last administered on 04/11/17 11:42; Admin Dose 2.5 MLS/HR; Start 04/11/17 at 11:30; Stop at 03:29 Famotidine (Pepcid) 20 mg Q12 PO ; Start 04/11/17 at 21:00 Enoxaparin Sodium 40 mg 40 mg DAILY SC ; Start 04/12/17 at 09:00 Piperacillin Sod/ Tazobactam Sod 100 ml @ 200 mls/hr Q6 IVPB Last administered on 04/12/17 03:09; Admin Dose 200 MLS/HR; Start 04/11/17 at 15:00 Norepinephrine 16 mg/Dextrose 500 ml @ 0 mls/hr TITRATE IV Last administered on 04/12/17 00:46; Admin Dose 46.87 MLS/HR; Start 04/11/17 at 12:30 Vancomycin HCl (Vancocin) 250 ml @ 125 mls/hr Q24H IVPB ; Start 04/12/17 at 12: 00 Aspirin (Aspirin) 325 mg DAILY NGT ; Start 04/12/17 at 09:00 Metoprolol Tartrate (Lopressor) 25 mg BID NGT ; Start 04/11/17 at 21:00 Metoprolol Tartrate (Lopressor) 5 mg Q4H PRN IV HR>110 Hold SBP<110; Start at 13:30 Hydrocortisone (Cortef) 10 mg QHS GTB ; Start 04/11/17 at 21:00 Hydrocortisone (Cortef) 20 mg DAILY GTB ; Start 04/12/17 at 09:00 Lansoprazole (Prevacid) 30 mg DAILY GTB ; Start 04/12/17 at 09:00 Insulin Aspart NOVOLOG *MILD* ALGORI... Q4 SC Last administered on 04/12/17 04: 29; Admin Dose 2 UNIT; Start 04/11/17 at 17:00 Phenylephrine HCl/ Dextrose (Chuy-Syneph/D5W) 500 ml @ 0 mls/hr TITRATE IV Last administered on 04/12/17 02:52; Admin Dose 75 MLS/HR; Start 04/11/17 at 16:00 Miscellaneous Information 1 ea NOTE XX ; Start 04/11/17 at 16:30 Glucose (Glutose) 15 gm Q15M PRN PO DECREASED GLUCOSE; Start 04/11/17 at 16:30 Glucose (Glutose) 22.5 gm Q15M PRN PO DECREASED GLUCOSE; Start 04/11/17 at 16: 30 Dextrose (D50w Syringe) 25 ml Q15M PRN IV DECREASED GLUCOSE Last administered on 04/11/17 19:26; Admin Dose 25 ML; Start 04/11/17 at 16:30 Dextrose (D50w Syringe) 50 ml Q15M PRN IV DECREASED GLUCOSE; Start 04/11/17 at 16:30 Glucagon (Glucagen) 1 mg Q15M PRN IM DECREASED GLUCOSE; Start 04/11/17 at 16:30 Glucose (Glutose) 15 gm Q15M PRN BUCCAL DECREASED GLUCOSE; Start 04/11/17 at 16 :30 Hydrocortisone 50 mg 50 mg QID IV Last administered on 04/11/17 22:28; Admin Dose 50 MG; Start 04/11/17 at 23:00 Sodium Chloride 1,000 ml @ 125 mls/hr Q8H IV Last administered on 04/12/17 06: 43; Admin Dose 125 MLS/HR; Start 04/11/17 at 19:30 Midazolam HCl (Versed) 50 ml @ 1 mls/hr TITRATE IV Last administered on 23:18; Admin Dose 14 MLS/HR; Start 04/11/17 at 23:30 NINA MACIEL DO Apr 12, 2017 08:16
[2017-04-12] MEDS: ENOXAPARIN 40 MG/0.4 ML SYG SC SCH (08:49)
[2017-04-12] MEDS: HYDROCORTISONE 100 MG INJ IV SCH ×4 (08:59→20:42)
[2017-04-12] MEDS: FAMOTIDINE 20 MG TAB PO SCH ×2 (08:59→20:38)
[2017-04-12] MEDS: LANSOPRAZOLE 30 MG CAP GTB SCH (08:59)
[2017-04-12] MEDS: ASPIRIN 325 MG TAB NGT SCH (08:59)
[2017-04-12] MEDS: METOPROLOL 25 MG TAB NGT SCH ×2 (09:00→20:42)
--- NOTE | 2017-04-12 09:10 | CONS ---
Date/Time of Note Date/Time of Note DATE: 04/12/17 TIME: 09:10 Assessment/Plan Assessment/Plan Chief Complaint/Hosp Course ID PROGRESS NOTE * => Patient known to "Team Rey WILLAMS" ID consultants from recent admission to [facility] & [place] (s/p recent DC from [facility] <2 weeks) * CURRENT TOTAL ABX DAY #2 +>Vanco IV #2 + Zosyn #2 HISTORY OF PRESENT ILLNESS * HPI: . Patient BIB EMS after witnessed emesis associated w/aspiration event, stabilized in ED and started on broad spectrum ABX. 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 Per family in room trach stoma site was healing with less oral secretions draining -- he suspects patient likely had build-up of oral secretions w/increased needs for oral suctioning likely contributing to aspiration event at SNF. Family reports patient was tolerating TF without emesis. Of note, the patient is s/p recent VDRF event after prior aspiration PNA event. Patient now seen in the ICU orally intubated. * ON ADMISSION: (+)Fever @ 102.0, w/Lactic acid rising to 5.1, WBC 13.1 on admission -> 27.9 today, S.CR 1.21, (+)Troponin leak, (+) tachycardia HRA 120' s. DIAGNOSTIC IMAGING ON ADMISSION * CXR IMPRESSION: * 1. Cardiomegaly with asymmetric pulmonary edema and a small to moderate size right pleural effusion suspicious for CHF. Pulmonary infiltrates have worsened as compared to 01/12/2017. The presence of a superimposed pneumonia should be considered in the differential diagnosis. * 2. Endotracheal tube is well-positioned 2.8 cm superior to the sammy. * 3. An NG tube is well positioned distal to the GE junction. * 4. Other findings as described above. * 04/11/17 ABD US IMPRESSION: * 1. Cholelithiasis. There is no gallbladder wall thickening or pericholecystic fluid to suggest acute cholecystitis. * 2. Common bile duct mildly dilated measuring 6.5 mm. Consider MRCP for further evaluation * 04/11/17 CT ABD/PELVIS IMPRESSION: * 1. Bibasilar infiltrates are identified consistent with pneumonia. * 2. Small pericardial effusion. * 3. Sludge and small gallstones in the gallbladder with pericholecystic fluid. Acute cholecystitis is not excluded. Clinical correlation is needed. * 4. A Latif catheter is identified in the urinary bladder. The bladder wall is not visualized due to increased attenuation of a fluid-containing the urinary bladder. Urinalysis is recommended. * 5. Enlarged left adrenal gland measuring up to 3.1 x 2.3 by 1.8 cm with ill- defined borders. An MRI of the adrenal gland with without Gadavist is recommended for further evaluation. An adrenal adenoma or metastasis might present this fashion. * 6. Atherosclerotic vascular disease with a central venous catheter entering the right inguinal canal with its tip in the right femoral vein. * 7. Disk space narrowing with possible central disk herniation at L5-S1 measuring up to apical meters AP which is better evaluated with MRI. #80 anasarca. * 9. Satisfactory positioning of the gastrostomy tube and nasogastric tube. 24H INTERVAL SUMMARY/HOSPITAL COURSE * No fever today, VSS, micro results pending * 04/12/17 0505 04/12/17 0505 PAST MEDICAL/SURG HX: 1. Tongue cancer-> s/p resection/reconstruction ~10 year ago w/(+)chronic trach= > trach decannulated March 2016 2. s/p recent hypoxic/hypercapnic VDRF w/subsequent weaning & Trach capping February 2017 3. Dysphagia x18 mos w/aspiration syndrome 4. HTN 5. HLD 6. Paroxysmal atrial fibrillation 7. hx of prior NSTEMI in setting sepsis, respiratory failure, demand ischemia 8. CHF due to Diastolic heart failure 9. Hx of Sepsis and leukocytosis. 10. Renal insufficiency. 11. Thyroid disorder. On Synthroid. 12. Elevated glucose - iatrogenic diabetes while on IV steroids 13. iatrogenic adrenal insufficiency, s/p steroid taper PHYSICAL EXAMINATION: GENERAL: 66 yo F, stable on the Vent HEENT: NGT & ETT secure NECK: (+)Trach CHEST: Rise symmetrical w/coarse BS, scattered rales/rhonchi ABDOMEN: Soft, peg EXTREMITIES: Warm, moves extremities ID ASSESSMENT: 66 yo F w/PMHx tongue cancer, chronic trach re-admit [facility] from SNF with: 1. Acute severe sepsis on admission associated with: * Fver 102.0+ 6/30 * Tachycardia HR 120's * Elevated lactic acid 3.1 -> RIsing to 5.1 * Leukocytosis w/WBC 13.1 on admission -> 27.9 today * S.CR 1.21 * (+)Troponin leak 2. Acute respiratory failure 3. HCAP=> Recurrent Aspiration PNA post emesis // Hx of GNR tracheobronchitis * 04/06/17 (+)PSAR = MDRO * 04/06/17 (+)Proteus Mirabilis 4. Acute CHF w/elevated BNP 8000 in setting tachycardia, sepsis, pulmonary edema on CXR 5. Nausea w/emesis ?etiology -> GI on the case * Query: DM Autonomic Gastroparesis ? * GERD ? 6. Cholelithiasis w/dilated CBD 7. Recent (+)C.Diff on 03/07/16 (treated) w/(-)C.Diff 03/20/17 8. Dysphagia sp PEG placement 9. Paroxysmal Afib 10. NSTEMI in setting sepsis, tachycardia, acute hypoxic respiratory failure, acute CHF exacerbation 11. Elevated glucose - iatrogenic diabetes while on IV steroids (-) MRSA Nares screen (04/03/17) INVASIVES: ETT, NGT, FC ABX ALLERGY: Iodine CURRENT ABX: Vanco IV #2 + Zosyn #2 + Vanco Liq via GT #1 ID PLAN: * Continue current broad spectrum IV ABX and watch renal fx * Blood, urine, sputum, and C.Diff cultures * Start empiric Vanco liquid via GT due to rising WBC and hx of recent C.Diff now back on ABX. . Problems: Consultation Date/Type/Reason Admit Date/Time Apr 11, 2017 at 11:28 Initial Consult Date 04/11/17 Type of Consultation: ID Referring Provider: GABBI GOMES MD Exam/Review of Systems Vital Signs Vitals Vital Signs Date Time Temp Pulse Resp B/P Pulse Ox O2 Delivery O2 Flow Rate FiO2 04/12/17 08:10 122 04/12/17 08:05 27 99 100 04/12/17 08:00 97.5 122/91 Mechanical Ventilator 04/12/17 08:00 Intake and Output 04/11/17 04/11/17 04/12/17 15:00 23:00 07:00 Intake Total 3350 ml 340.4 ml 2679.55 ml Output Total 370 ml 270 ml Balance 3350 ml -29.6 ml 2409.55 ml Results Result Diagram: 04/12/17 0505 04/12/17 0505 Results 24 hrs Laboratory Tests Test 04/11/17 09:14 04/11/17 11:40 04/11/17 14:00 04/11/17 15:05 Blood Gas Specimen Source Blood arterial Blood arterial Arterial Blood Date Drawn 04/11/2017 9:26:10 AM 04/11/2017 3:50:50 PM Arterial Blood pH (Temp corrected) 7.386 7.274 *L Arterial Blood pCO2 (Temp correct) 54.5 H 54.5 H Arterial Blood pO2 (Temp corrected) 58.9 L 68.0 L Arterial Blood HCO3 32.0 H 24.7 Arterial Blood Base Excess 5.6 H -2.7 Arterial Blood Oxygen Saturation 89.5 L 90.7 L Jonn Test ACCEPTAB N/A Arterial Blood Gas Puncture Site Right Radial LB Arterial Blood Carboxyhemoglobin 0.4 0.3 Arterial Blood Methemoglobin 0.2 0.5 Blood Gas A-a O2 Differential 599.6 H 590.5 H Oxyhemoglobin Percent 89.0 L 90.0 L Total Hemoglobin 12.2 12.1 Blood Gas Temperature 37.0 37.0 Blood Gas Modality MASK - NRB VENT - AC FiO2 100.0 100.0 Blood Gas Notified Whom Lorna Rothman Blood Gas Notified Time 04/11/2017 9:34:43 AM 04/11/2017 4:01:43 PM Lactic Acid Level 2.1 2.3 H Urine Color YELLOW Urine Clarity SLIGHTLY CLOUDY A Urine pH 6.0 Urine Specific [place]az 1.019 Urine Ketones NEGATIVE Urine Nitrite NEGATIVE Urine Bilirubin NEGATIVE Urine Urobilinogen NEGATIVE Urine Leukocyte Esterase NEGATIVE Urine Microscopic RBC 1 Urine Microscopic WBC 3 Urine Mucus FEW A Urine Hemoglobin NEGATIVE Urine Glucose NEGATIVE Urine Total Protein 2+ H Troponin I 1.140 *H B-Type Natriuretic Peptide 8000 H Thyroid Stimulating Hormone (TSH) 4.110 Blood Gas Respiration Rate 16.0 Blood Gas Actual Respiration Rate 25 Blood Gas Tidal Volume 450.0 Blood Gas Low PEEP Setting 0 Blood Gas Critical Value Read Back MARILU TIMMONS Test 04/11/17 16:30 04/11/17 18:15 04/11/17 18:58 04/11/17 19:23 Lactic Acid Level 2.6 H 3.6 H Troponin I 2.320 *H Bedside Glucose 63 L 77 Test 04/11/17 19:54 04/11/17 20:30 04/11/17 21:33 04/11/17 22:10 Bedside Glucose 115 130 Lactic Acid Level 5.0 *H 5.2 *H Test 04/11/17 23:45 04/12/17 01:00 04/12/17 01:07 04/12/17 04:26 Blood Gas Specimen Source Blood arterial Arterial Blood Date Drawn 04/11/2017 11:45:16 PM Arterial Blood pH (Temp corrected) 7.196 *L Arterial Blood pCO2 (Temp correct) 53.0 H Arterial Blood pO2 (Temp corrected) 72.7 L Arterial Blood HCO3 20.1 L Arterial Blood Base Excess -8.1 L Arterial Blood Oxygen Saturation 92.5 L Jonn Test ACCEPTAB Arterial Blood Gas Puncture Site Right Radial Arterial Blood Carboxyhemoglobin 0.3 Arterial Blood Methemoglobin 0.4 Blood Gas A-a O2 Differential 587.3 H Oxyhemoglobin Percent 91.9 L Total Hemoglobin 11.2 L Blood Gas Temperature 37.0 Blood Gas Respiration Rate 16.0 Blood Gas Actual Respiration Rate 18 Blood Gas Modality VENT - AC FiO2 100.0 Blood Gas Tidal Volume 500.0 Blood Gas Low PEEP Setting 0 Blood Gas Critical Value Read Back TMEHROTRA RN Blood Gas Notified Whom MA Blood Gas Notified Time 04/12/2017 12:01:06 AM Lactic Acid Level 5.2 *H Troponin I 2.040 *H Bedside Glucose 173 184 Test 04/12/17 05:00 04/12/17 05:05 04/12/17 08:56 Blood Gas Specimen Source Blood arterial Arterial Blood Date Drawn 04/12/2017 5:17:19 AM Arterial Blood pH (Temp corrected) 7.222 *L Arterial Blood pCO2 (Temp correct) 42.8 Arterial Blood pO2 (Temp corrected) 70.8 L Arterial Blood HCO3 17.2 L Arterial Blood Base Excess -10.0 L Arterial Blood Oxygen Saturation 93.0 L Jonn Test ACCEPTAB Arterial Blood Gas Puncture Site Right Radial Arterial Blood Carboxyhemoglobin 0.3 Arterial Blood Methemoglobin 0.3 Blood Gas A-a O2 Differential 599.4 H Oxyhemoglobin Percent 92.4 L Total Hemoglobin 11.6 L Blood Gas Temperature 37.0 Blood Gas Respiration Rate 22.0 Blood Gas Actual Respiration Rate 22 Blood Gas Modality VENT - AC FiO2 100.0 Blood Gas Tidal Volume 500.0 Blood Gas Critical Value Read Back MARILU MCINTYRE Blood Gas Notified Whom BR Blood Gas Notified Time 04/12/2017 5:23:02 AM White Blood Count 27.9 #H Red Blood Count 3.39 L Hemoglobin 12.1 Hematocrit 38.3 Mean Corpuscular Volume 113.0 H Mean Corpuscular Hemoglobin 35.7 H Mean Corpuscular Hemoglobin Concent 31.6 L Red Cell Distribution Width 14.6 H Platelet Count 274 Mean Platelet Volume 12.3 H Neutrophils % Lymphocytes % Monocytes % Eosinophils % Basophils % Neutrophils # Lymphocytes # Monocytes # Eosinophils # Basophils # Sodium Level 141 Potassium Level 4.7 Chloride Level 109 # Carbon Dioxide Level 21 # Anion Gap 16 Blood Urea Nitrogen 39 H Creatinine 1.21 H Glucose Level 170 Lactic Acid Level 5.1 *H Calcium Level 8.1 L Total Bilirubin 0.1 L Direct Bilirubin 0.00 Indirect Bilirubin 0.1 Aspartate Amino Transf (AST/SGOT) 185 H Alanine Aminotransferase (ALT/SGPT) 210 H Alkaline Phosphatase 68 Total Protein 5.8 #L Albumin 3.5 # Globulin 2.30 Albumin/Globulin Ratio 1.52 Random Cortisol Pending Bedside Glucose 169 Medications Medications Current Medications Fentanyl (Sublimaze) 100 ml @ 2.5 mls/hr TITRATE ONCE IV Last administered on 04/11/17 11:42; Admin Dose 2.5 MLS/HR; Start 04/11/17 at 11:30; Stop at 03:29 Famotidine (Pepcid) 20 mg Q12 PO Last administered on 04/12/17 08:59; Admin Dose 20 MG; Start 04/11/17 at 21:00 Enoxaparin Sodium 40 mg 40 mg DAILY SC Last administered on 04/12/17 08:49; Admin Dose 40 MG; Start 04/12/17 at 09:00 Piperacillin Sod/ Tazobactam Sod 100 ml @ 200 mls/hr Q6 IVPB Last administered on 04/12/17 03:09; Admin Dose 200 MLS/HR; Start 04/11/17 at 15:00 Norepinephrine 16 mg/Dextrose 500 ml @ 0 mls/hr TITRATE IV Last administered on 04/12/17 00:46; Admin Dose 46.87 MLS/HR; Start 04/11/17 at 12:30 Vancomycin HCl (Vancocin) 250 ml @ 125 mls/hr Q24H IVPB ; Start 04/12/17 at 12: 00 Aspirin (Aspirin) 325 mg DAILY NGT Last administered on 04/12/17 08:59; Admin Dose 325 MG; Start 04/12/17 at 09:00 Metoprolol Tartrate (Lopressor) 25 mg BID NGT ; Start 04/11/17 at 21:00 Metoprolol Tartrate (Lopressor) 5 mg Q4H PRN IV HR>110 Hold SBP<110; Start at 13:30 Hydrocortisone (Cortef) 10 mg QHS GTB ; Start 04/11/17 at 21:00 Hydrocortisone (Cortef) 20 mg DAILY GTB ; Start 04/12/17 at 09:00 Lansoprazole (Prevacid) 30 mg DAILY GTB Last administered on 04/12/17 08:59; Admin Dose 30 MG; Start 04/12/17 at 09:00 Insulin Aspart NOVOLOG *MILD* ALGORI... Q4 SC Last administered on 04/12/17 08: 58; Admin Dose 1 UNIT; Start 04/11/17 at 17:00 Phenylephrine HCl/ Dextrose (Chuy-Syneph/D5W) 500 ml @ 0 mls/hr TITRATE IV Last administered on 04/12/17 02:52; Admin Dose 75 MLS/HR; Start 04/11/17 at 16:00 Miscellaneous Information 1 ea NOTE XX ; Start 04/11/17 at 16:30 Glucose (Glutose) 15 gm Q15M PRN PO DECREASED GLUCOSE; Start 04/11/17 at 16:30 Glucose (Glutose) 22.5 gm Q15M PRN PO DECREASED GLUCOSE; Start 04/11/17 at 16: 30 Dextrose (D50w Syringe) 25 ml Q15M PRN IV DECREASED GLUCOSE Last administered on 04/11/17 19:26; Admin Dose 25 ML; Start 04/11/17 at 16:30 Dextrose (D50w Syringe) 50 ml Q15M PRN IV DECREASED GLUCOSE; Start 04/11/17 at 16:30 Glucagon (Glucagen) 1 mg Q15M PRN IM DECREASED GLUCOSE; Start 04/11/17 at 16:30 Glucose (Glutose) 15 gm Q15M PRN BUCCAL DECREASED GLUCOSE; Start 04/11/17 at 16 :30 Hydrocortisone 50 mg 50 mg QID IV Last administered on 04/12/17 08:59; Admin Dose 50 MG; Start 04/11/17 at 23:00 Sodium Chloride 1,000 ml @ 125 mls/hr Q8H IV Last administered on 04/12/17 06: 43; Admin Dose 125 MLS/HR; Start 04/11/17 at 19:30 Midazolam HCl (Versed) 50 ml @ 1 mls/hr TITRATE IV Last administered on 23:18; Admin Dose 14 MLS/HR; Start 04/11/17 at 23:30 MARGOT WILLS NP Apr 12, 2017 09:10
--- NOTE | 2017-04-12 09:15 | CONS ---
Date/Time of Note Date/Time of Note DATE: 04/12/17 TIME: 08:12 Assessment/Plan Assessment/Plan Chief Complaint/Hosp Course Cholelithiasis without cholecystitis:? ischemic bowel Ct abd: sludge and small stones in the gallbladder. No gallbladder wall thickening is noted with some pericholecystic fluid is present. Patient on pressors; NG tube 100cc yellow output last night -No surgical intervention required at this time -HIDA - will continue to monitor -recommend CT angio Pneumonia: Recurrent; fevers; intubated; less secretions per -Pulmonary toilet -abx Septic shock: On pressors; fever overnight -on abx -supportive Transaminitis: likely 2/2 septic shock vs. cholecystitis; increasing -trend, monitor Elevated troponin:NSTEMI; septic shock/demand ischemia; coming down -trend Leukocytosis 2/2 pneumonia vs. other (cultures pending); wbc increasing -on abx -judicious fluid management KEYONNA: likely 2/2 septic shock; mims with good output -judicious fluid management -per nephro Problems: Consultation Date/Type/Reason Admit Date/Time Date of Consultation: Apr 12, 2017 Type of Consultation: surgical Reason for Consultation Possible cholecystitis Hx of Present Illness Mac Glasgow is a 66 yo woman who was admitted for hypoxic respiratory failure following an episode of emesis. She has a history of trachoestomy and dysphagia with Gtube, as well as recurrent pneumonia. She was noted to have a rigid abdomen and elevated liver enzymes lactic acid and elevated troponin. [facility] des[facility]. Surgical consult was called to evaluate. Respiratory: other (intubated) Cardiovascular: other (h/o AF) Gastrointestinal: vomiting Genitourinary: other (No hematuria) Neurologic: other (sedated) Endocrine: other (hypothyroid) Past Medical History tongue ca chronic hypoxic respiratory failure sp trach placement recent capping dysphagia sp PEG placement DM h/o cardiac arrest with spontaneous ROSC iatrogenic adrenal insufficiency Medical History: hypertension, hypothyroid, other Past Surgical History Past Surgical Hx: other (G tube, prior trach) Family History Significant Family History: no pertinent family hx Social History Alcohol Use: none Smoking Status: Never smoker Drug Use: none Exam/Review of Systems Vital Signs Vitals Vital Signs Date Time Temp Pulse Resp B/P Pulse Ox O2 Delivery O2 Flow Rate FiO2 04/12/17 08:10 122 04/12/17 06:00 98.4 26 100/66 100 Mechanical Ventilator 04/12/17 05:40 100 04/11/17 09:48 15 Intake and Output 04/11/17 04/11/17 04/12/17 15:00 23:00 07:00 Intake Total 3350 ml 340.4 ml 2679.55 ml Output Total 370 ml 270 ml Balance 3350 ml -29.6 ml 2409.55 ml Exam Constitutional: other (minimal response, recently stopped sedation), well developed Head: atraumatic, normocephalic Eyes: PERRL, nl lids, nl sclera ENMT: intubated (ET tube), No mucosa pink and moist (pink and dry) Neck: non-tender, supple Respiratory: clear to auscultation (diminished at bases) Cardiovascular: nl pulses, regular rate and rhythm Gastrointestinal: bowel sounds (hypoactive), non-tender, soft, No distended, No rebound or guarding Genitourinary - Female: nl external genitalia Musculoskeletal: nl extremities to inspection Extremities: normal pulses, No edema Neurological: unresponsive Skin: nl turgor, No rash or lesions Lymph: nl lymph nodes Results Result Diagram: 04/12/17 0505 04/12/17 0505 Results 24 hrs Laboratory Tests Test 04/11/17 09:00 04/11/17 09:14 04/11/17 11:40 04/11/17 14:00 White Blood Count 13.1 #H Red Blood Count 3.15 L Hemoglobin 10.9 L Hematocrit 34.6 L Mean Corpuscular Volume 109.8 H Mean Corpuscular Hemoglobin 34.6 H Mean Corpuscular Hemoglobin Concent 31.5 L Red Cell Distribution Width 15.0 H Platelet Count 302 # Mean Platelet Volume 10.8 H Neutrophils % 76.3 Lymphocytes % 13.7 L Monocytes % 6.6 Eosinophils % 0.5 Basophils % 0.4 Nucleated Red Blood Cells % 0.2 H Neutrophils # 10.0 H Lymphocytes # 1.8 Monocytes # 0.9 Eosinophils # 0.1 Basophils # 0.1 Nucleated Red Blood Cells # 0.0 Prothrombin Time 12.6 Prothrombin Time Ratio 1.0 INR International Normalized Ratio 0.94 Activated Partial Thromboplast Time 26.6 Sodium Level 139 Potassium Level 4.9 Chloride Level 97 Carbon Dioxide Level 34 H Anion Gap 13 Blood Urea Nitrogen 43 H Creatinine 0.85 Glucose Level 125 Lactic Acid Level 1.2 2.1 2.3 H Calcium Level 10.0 Total Bilirubin 0.1 L Direct Bilirubin 0.00 Indirect Bilirubin 0.1 Aspartate Amino Transf (AST/SGOT) 118 H Alanine Aminotransferase (ALT/SGPT) 166 H Alkaline Phosphatase 110 Troponin I 0.272 *H 1.140 *H Total Protein 7.5 Albumin 4.7 Globulin 2.80 Albumin/Globulin Ratio 1.67 Blood Gas Specimen Source Blood arterial Arterial Blood Date Drawn 04/11/2017 9:26:10 AM Arterial Blood pH (Temp corrected) 7.386 Arterial Blood pCO2 (Temp correct) 54.5 H Arterial Blood pO2 (Temp corrected) 58.9 L Arterial Blood HCO3 32.0 H Arterial Blood Base Excess 5.6 H Arterial Blood Oxygen Saturation 89.5 L Jonn Test ACCEPTAB Arterial Blood Gas Puncture Site Right Radial Arterial Blood Carboxyhemoglobin 0.4 Arterial Blood Methemoglobin 0.2 Blood Gas A-a O2 Differential 599.6 H Oxyhemoglobin Percent 89.0 L Total Hemoglobin 12.2 Blood Gas Temperature 37.0 Blood Gas Modality MASK - NRB FiO2 100.0 Blood Gas Notified Whom Lorna Blood Gas Notified Time 04/11/2017 9:34:43 AM Urine Color YELLOW Urine Clarity SLIGHTLY CLOUDY A Urine pH 6.0 Urine Specific [place] 1.019 Urine Ketones NEGATIVE Urine Nitrite NEGATIVE Urine Bilirubin NEGATIVE Urine Urobilinogen NEGATIVE Urine Leukocyte Esterase NEGATIVE Urine Microscopic RBC 1 Urine Microscopic WBC 3 Urine Mucus FEW A Urine Hemoglobin NEGATIVE Urine Glucose NEGATIVE Urine Total Protein 2+ H B-Type Natriuretic Peptide 8000 H Thyroid Stimulating Hormone (TSH) 4.110 Test 04/11/17 15:05 04/11/17 16:30 04/11/17 18:15 04/11/17 18:58 Blood Gas Specimen Source Blood arterial Arterial Blood Date Drawn 04/11/2017 3:50:50 PM Arterial Blood pH (Temp corrected) 7.274 *L Arterial Blood pCO2 (Temp correct) 54.5 H Arterial Blood pO2 (Temp corrected) 68.0 L Arterial Blood HCO3 24.7 Arterial Blood Base Excess -2.7 Arterial Blood Oxygen Saturation 90.7 L Jonn Test N/A Arterial Blood Gas Puncture Site LB Arterial Blood Carboxyhemoglobin 0.3 Arterial Blood Methemoglobin 0.5 Blood Gas A-a O2 Differential 590.5 H Oxyhemoglobin Percent 90.0 L Total Hemoglobin 12.1 Blood Gas Temperature 37.0 Blood Gas Respiration Rate 16.0 Blood Gas Actual Respiration Rate 25 Blood Gas Modality VENT - AC FiO2 100.0 Blood Gas Tidal Volume 450.0 Blood Gas Low PEEP Setting 0 Blood Gas Critical Value Read Back MARILU TIMMONS Blood Gas Notified Whom Lorna Blood Gas Notified Time 04/11/2017 4:01:43 PM Lactic Acid Level 2.6 H 3.6 H Troponin I 2.320 *H Bedside Glucose 63 L Test 04/11/17 19:23 04/11/17 19:54 04/11/17 20:30 04/11/17 21:33 Bedside Glucose 77 115 130 Lactic Acid Level 5.0 *H Test 04/11/17 22:10 04/11/17 23:45 04/12/17 01:00 04/12/17 01:07 Lactic Acid Level 5.2 *H 5.2 *H Blood Gas Specimen Source Blood arterial Arterial Blood Date Drawn 04/11/2017 11:45:16 PM Arterial Blood pH (Temp corrected) 7.196 *L Arterial Blood pCO2 (Temp correct) 53.0 H Arterial Blood pO2 (Temp corrected) 72.7 L Arterial Blood HCO3 20.1 L Arterial Blood Base Excess -8.1 L Arterial Blood Oxygen Saturation 92.5 L Jonn Test ACCEPTAB Arterial Blood Gas Puncture Site Right Radial Arterial Blood Carboxyhemoglobin 0.3 Arterial Blood Methemoglobin 0.4 Blood Gas A-a O2 Differential 587.3 H Oxyhemoglobin Percent 91.9 L Total Hemoglobin 11.2 L Blood Gas Temperature 37.0 Blood Gas Respiration Rate 16.0 Blood Gas Actual Respiration Rate 18 Blood Gas Modality VENT - AC FiO2 100.0 Blood Gas Tidal Volume 500.0 Blood Gas Low PEEP Setting 0 Blood Gas Critical Value Read Back ELISHA MICHEL Blood Gas Notified Whom JANETTE Blood Gas Notified Time 04/12/2017 12:01:06 AM Troponin I 2.040 *H Bedside Glucose 173 Test 04/12/17 04:26 04/12/17 05:00 04/12/17 05:05 Bedside Glucose 184 Blood Gas Specimen Source Blood arterial Arterial Blood Date Drawn 04/12/2017 5:17:19 AM Arterial Blood pH (Temp corrected) 7.222 *L Arterial Blood pCO2 (Temp correct) 42.8 Arterial Blood pO2 (Temp corrected) 70.8 L Arterial Blood HCO3 17.2 L Arterial Blood Base Excess -10.0 L Arterial Blood Oxygen Saturation 93.0 L Jonn Test ACCEPTAB Arterial Blood Gas Puncture Site Right Radial Arterial Blood Carboxyhemoglobin 0.3 Arterial Blood Methemoglobin 0.3 Blood Gas A-a O2 Differential 599.4 H Oxyhemoglobin Percent 92.4 L Total Hemoglobin 11.6 L Blood Gas Temperature 37.0 Blood Gas Respiration Rate 22.0 Blood Gas Actual Respiration Rate 22 Blood Gas Modality VENT - AC FiO2 100.0 Blood Gas Tidal Volume 500.0 Blood Gas Critical Value Read Back MARILU MCINTYRE Blood Gas Notified Whom BR Blood Gas Notified Time 04/12/2017 5:23:02 AM White Blood Count 27.9 #H Red Blood Count 3.39 L Hemoglobin 12.1 Hematocrit 38.3 Mean Corpuscular Volume 113.0 H Mean Corpuscular Hemoglobin 35.7 H Mean Corpuscular Hemoglobin Concent 31.6 L Red Cell Distribution Width 14.6 H Platelet Count 274 Mean Platelet Volume 12.3 H Neutrophils % Lymphocytes % Monocytes % Eosinophils % Basophils % Neutrophils # Lymphocytes # Monocytes # Eosinophils # Basophils # Sodium Level 141 Potassium Level 4.7 Chloride Level 109 # Carbon Dioxide Level 21 # Anion Gap 16 Blood Urea Nitrogen 39 H Creatinine 1.21 H Glucose Level 170 Lactic Acid Level 5.1 *H Calcium Level 8.1 L Total Bilirubin 0.1 L Direct Bilirubin 0.00 Indirect Bilirubin 0.1 Aspartate Amino Transf (AST/SGOT) 185 H Alanine Aminotransferase (ALT/SGPT) 210 H Alkaline Phosphatase 68 Total Protein 5.8 #L Albumin 3.5 # Globulin 2.30 Albumin/Globulin Ratio 1.52 Random Cortisol Pending Medications Medications Current Medications Fentanyl (Sublimaze) 100 ml @ 2.5 mls/hr TITRATE ONCE IV Last administered on 04/11/17t 11:42; Admin Dose 2.5 MLS/HR; Start 04/11/17 at 11:30; Stop at 03:29 Famotidine (Pepcid) 20 mg Q12 PO ; Start 04/11/17 at 21:00 Enoxaparin Sodium 40 mg 40 mg DAILY SC ; Start 04/12/17 at 09:00 Piperacillin Sod/ Tazobactam Sod 100 ml @ 200 mls/hr Q6 IVPB Last administered on 04/12/17 03:09; Admin Dose 200 MLS/HR; Start 04/11/17 at 15:00 Norepinephrine 16 mg/Dextrose 500 ml @ 0 mls/hr TITRATE IV Last administered on 04/12/17 00:46; Admin Dose 46.87 MLS/HR; Start 04/11/17 at 12:30 Vancomycin HCl (Vancocin) 250 ml @ 125 mls/hr Q24H IVPB ; Start 04/12/17 at 12: 00 Aspirin (Aspirin) 325 mg DAILY NGT ; Start 04/12/17 at 09:00 Metoprolol Tartrate (Lopressor) 25 mg BID NGT ; Start 04/11/17 at 21:00 Metoprolol Tartrate (Lopressor) 5 mg Q4H PRN IV HR>110 Hold SBP<110; Start at 13:30 Hydrocortisone (Cortef) 10 mg QHS GTB ; Start 04/11/17 at 21:00 Hydrocortisone (Cortef) 20 mg DAILY GTB ; Start 04/12/17 at 09:00 Lansoprazole (Prevacid) 30 mg DAILY GTB ; Start 04/12/17 at 09:00 Insulin Aspart NOVOLOG *MILD* ALGORI... Q4 SC Last administered on 04/12/17 04: 29; Admin Dose 2 UNIT; Start 04/11/17 at 17:00 Phenylephrine HCl/ Dextrose (Chuy-Syneph/D5W) 500 ml @ 0 mls/hr TITRATE IV Last administered on 04/12/17 02:52; Admin Dose 75 MLS/HR; Start 04/11/17 at 16:00 Miscellaneous Information 1 ea NOTE XX ; Start 04/11/17 at 16:30 Glucose (Glutose) 15 gm Q15M PRN PO DECREASED GLUCOSE; Start 04/11/17 at 16:30 Glucose (Glutose) 22.5 gm Q15M PRN PO DECREASED GLUCOSE; Start 04/11/17 at 16: 30 Dextrose (D50w Syringe) 25 ml Q15M PRN IV DECREASED GLUCOSE Last administered on 04/11/17 19:26; Admin Dose 25 ML; Start 04/11/17 at 16:30 Dextrose (D50w Syringe) 50 ml Q15M PRN IV DECREASED GLUCOSE; Start 04/11/17 at 16:30 Glucagon (Glucagen) 1 mg Q15M PRN IM DECREASED GLUCOSE; Start 04/11/17 at 16:30 Glucose (Glutose) 15 gm Q15M PRN BUCCAL DECREASED GLUCOSE; Start 04/11/17 at 16 :30 Hydrocortisone 50 mg 50 mg QID IV Last administered on 04/11/17 22:28; Admin Dose 50 MG; Start 04/11/17 at 23:00 Sodium Chloride 1,000 ml @ 125 mls/hr Q8H IV Last administered on 04/12/17 06: 43; Admin Dose 125 MLS/HR; Start 04/11/17 at 19:30 Midazolam HCl (Versed) 50 ml @ 1 mls/hr TITRATE IV Last administered on 23:18; Admin Dose 14 MLS/HR; Start 04/11/17 at 23:30 ADDISON FREGOSO NP Apr 12, 2017 08:22
[2017-04-12 11:14] LABS: LYMPHOCYTES # 1.7 10^3/ul (0.8-2.9); MONOCYTE # 1.4 10^3/ul (0.3-0.9); MYELOCYTES # 2.8; NEUTROPHIL # 3.9 10^3/ul (1.6-7.5)
[2017-04-12 11:15] LABS: ANISOCYTOSIS 1+; BURR CELLS FEW
[2017-04-12 11:16] LABS: POIKILOCYTOSIS 1+
[2017-04-12 11:17] LABS: POLYCHROMASIA 1+
[2017-04-12] MEDS: VANCOMYCIN HCL 250 MG/5ML POSYG PO SCH ×3 (11:32→23:56)
[2017-04-12] MEDS: HYDROCORTISONE 20 MG TAB GTB SCH (11:32)
[2017-04-12] MEDS ORDERED: VANCOMYCIN 1 GM (PMX) 250 ML IVPB SCH (12:00)
--- NOTE | 2017-04-12 13:27 | CONS ---
Date/Time of Note Date/Time of Note DATE: 04/12/17 TIME: 13:18 Assessment/Plan Assessment/Plan Additional Assessment/Plan IMP: 1. Septic Shock--likely due to multilobar aspiration pneumonia 2. Multifocal pneumonia aspiration vs. HCAP 3. Respiratory Failure 4. Lactic Acidosis 5. Demand Ischemia 6. Gall Stones--no evidence of acute choly RECS: 1. IVF's 2. Follow lactate clearance 3. Broad spectrum abx--de-escalate pending cultures 4. Vent--V-AC with rate 20; Vt 450 PEEP 5 5. Sedation with fentanyl and propofol 6. Am labs/CXR Consultation Date/Type/Reason Admit Date/Time Type of Consultation: Pulm/CCM Hx of Present Illness Briefly, this is a 66-year-old female with a history of chronic resp failure s/ p prolonged hospitalization and trach, recently decannulated ~ 3 weeks ago, dysphagia s/p PEG, admitted 2 days prior from SNF with severe septic shock requiring pressors and respiratory failure [facility] ventilation. Subjective hx not possible: pt non-verbal, pt critical Respiratory: other (intubated) Cardiovascular: other (h/o AF) Gastrointestinal: vomiting Genitourinary: other (No hematuria) Neurologic: other (sedated) Endocrine: other (hypothyroid) Past Medical History 1. Tongue cancer-> s/p resection/reconstruction ~10 year ago w/(+)chronic trach= > trach decannulated March 2016 2. s/p recent hypoxic/hypercapnic VDRF w/subsequent weaning & Trach capping February 2017 3. Dysphagia x18 mos w/aspiration syndrome 4. HTN 5. HLD 6. Paroxysmal atrial fibrillation 7. hx of prior NSTEMI in setting sepsis, respiratory failure, demand ischemia 8. CHF due to Diastolic heart failure 9. Hx of Sepsis and leukocytosis. 10. Renal insufficiency. 11. Thyroid disorder. On Synthroid. 12. Elevated glucose - iatrogenic diabetes while on IV steroids 13. iatrogenic adrenal insufficiency, s/p steroid taper Medical History: hypertension, hypothyroid, other Past Surgical History s/p trach s/p PEG Past Surgical Hx: other (G tube, prior trach) Social History Alcohol Use: none Smoking Status: Never smoker Drug Use: none Exam/Review of Systems Vital Signs Vitals Vital Signs Date Time Temp Pulse Resp B/P Pulse Ox O2 Delivery O2 Flow Rate FiO2 04/12/17 12:45 135 26 135/81 100 Mechanical Ventilator 04/12/17 12:06 100 04/12/17 12:00 98.9 04/12/17 08:00 Intake and Output 04/11/17 04/11/17 04/12/17 15:00 23:00 07:00 Intake Total 3350 ml 340.4 ml 2915.70 ml Output Total 370 ml 270 ml Balance 3350 ml -29.6 ml 2645.70 ml Exam Constitutional: non-verbal Head: atraumatic, normocephalic Eyes: nl conjunctiva, nl sclera ENMT: intubated, mucosa pink and moist, nl external ears & nose, nl lips & teeth Neck: supple Respiratory: crackles/rales Cardiovascular: systolic murmur Gastrointestinal: distended, firm Extremities: normal pulses Results Result Diagram: 04/12/17 0505 04/12/17 1045 Results 24 hrs Laboratory Tests Test 04/11/17 14:00 04/11/17 15:05 04/11/17 16:30 04/11/17 18:15 Urine Color YELLOW Urine Clarity SLIGHTLY CLOUDY A Urine pH 6.0 Urine Specific [place] 1.019 Urine Ketones NEGATIVE Urine Nitrite NEGATIVE Urine Bilirubin NEGATIVE Urine Urobilinogen NEGATIVE Urine Leukocyte Esterase NEGATIVE Urine Microscopic RBC 1 Urine Microscopic WBC 3 Urine Mucus FEW A Urine Hemoglobin NEGATIVE Urine Glucose NEGATIVE Urine Total Protein 2+ H Lactic Acid Level 2.3 H 2.6 H 3.6 H Troponin I 1.140 *H 2.320 *H B-Type Natriuretic Peptide 8000 H Thyroid Stimulating Hormone (TSH) 4.110 Blood Gas Specimen Source Blood arterial Arterial Blood Date Drawn 04/11/2017 3:50:50 PM Arterial Blood pH (Temp corrected) 7.274 *L Arterial Blood pCO2 (Temp correct) 54.5 H Arterial Blood pO2 (Temp corrected) 68.0 L Arterial Blood HCO3 24.7 Arterial Blood Base Excess -2.7 Arterial Blood Oxygen Saturation 90.7 L Jonn Test N/A Arterial Blood Gas Puncture Site LB Arterial Blood Carboxyhemoglobin 0.3 Arterial Blood Methemoglobin 0.5 Blood Gas A-a O2 Differential 590.5 H Oxyhemoglobin Percent 90.0 L Total Hemoglobin 12.1 Blood Gas Temperature 37.0 Blood Gas Respiration Rate 16.0 Blood Gas Actual Respiration Rate 25 Blood Gas Modality VENT - AC FiO2 100.0 Blood Gas Tidal Volume 450.0 Blood Gas Low PEEP Setting 0 Blood Gas Critical Value Read Back MARILU TIMMONS Blood Gas Notified Whom Lorna Blood Gas Notified Time 04/11/2017 4:01:43 PM Test 04/11/17 18:58 04/11/17 19:23 04/11/17 19:54 04/11/17 20:30 Bedside Glucose 63 L 77 115 Lactic Acid Level 5.0 *H Test 04/11/17 21:33 04/11/17 22:10 04/11/17 23:45 04/12/17 01:00 Bedside Glucose 130 Lactic Acid Level 5.2 *H 5.2 *H Blood Gas Specimen Source Blood arterial Arterial Blood Date Drawn 04/11/2017 11:45:16 PM Arterial Blood pH (Temp corrected) 7.196 *L Arterial Blood pCO2 (Temp correct) 53.0 H Arterial Blood pO2 (Temp corrected) 72.7 L Arterial Blood HCO3 20.1 L Arterial Blood Base Excess -8.1 L Arterial Blood Oxygen Saturation 92.5 L Jonn Test ACCEPTAB Arterial Blood Gas Puncture Site Right Radial Arterial Blood Carboxyhemoglobin 0.3 Arterial Blood Methemoglobin 0.4 Blood Gas A-a O2 Differential 587.3 H Oxyhemoglobin Percent 91.9 L Total Hemoglobin 11.2 L Blood Gas Temperature 37.0 Blood Gas Respiration Rate 16.0 Blood Gas Actual Respiration Rate 18 Blood Gas Modality VENT - AC FiO2 100.0 Blood Gas Tidal Volume 500.0 Blood Gas Low PEEP Setting 0 Blood Gas Critical Value Read Back ELISHA MICHEL Blood Gas Notified Whom JANETTE Blood Gas Notified Time 04/12/2017 12:01:06 AM Troponin I 2.040 *H Test 04/12/17 01:07 04/12/17 04:26 04/12/17 05:00 04/12/17 05:05 Bedside Glucose 173 184 Blood Gas Specimen Source Blood arterial Arterial Blood Date Drawn 04/12/2017 5:17:19 AM Arterial Blood pH (Temp corrected) 7.222 *L Arterial Blood pCO2 (Temp correct) 42.8 Arterial Blood pO2 (Temp corrected) 70.8 L Arterial Blood HCO3 17.2 L Arterial Blood Base Excess -10.0 L Arterial Blood Oxygen Saturation 93.0 L Jonn Test ACCEPTAB Arterial Blood Gas Puncture Site Right Radial Arterial Blood Carboxyhemoglobin 0.3 Arterial Blood Methemoglobin 0.3 Blood Gas A-a O2 Differential 599.4 H Oxyhemoglobin Percent 92.4 L Total Hemoglobin 11.6 L Blood Gas Temperature 37.0 Blood Gas Respiration Rate 22.0 Blood Gas Actual Respiration Rate 22 Blood Gas Modality VENT - AC FiO2 100.0 Blood Gas Tidal Volume 500.0 Blood Gas Critical Value Read Back MARILU MCINTYRE Blood Gas Notified Whom BR Blood Gas Notified Time 04/12/2017 5:23:02 AM White Blood Count 27.9 #H Red Blood Count 3.39 L Hemoglobin 12.1 Hematocrit 38.3 Mean Corpuscular Volume 113.0 H Mean Corpuscular Hemoglobin 35.7 H Mean Corpuscular Hemoglobin Concent 31.6 L Red Cell Distribution Width 14.6 H Platelet Count 274 Mean Platelet Volume 12.3 H Neutrophils % 14.0 L Band Neutrophils % 53.0 H Lymphocytes % 6.0 L Monocytes % 5.0 Eosinophils % Basophils % Metamyelocytes % 12.0 H Myelocytes % 10.0 H Neutrophils # 3.9 Lymphocytes # 1.7 Monocytes # 1.4 H Eosinophils # Basophils # Metamyelocytes # 3.3 Myelocytes # 2.8 Large Platelets FEW Giant Platelets OCCASIONAL Polychromasia 1+ Poikilocytosis 1+ Anisocytosis 1+ Macrocytosis 2+ Lactic Acid Level 5.1 *H Test 04/12/17 08:56 04/12/17 10:45 04/12/17 12:38 Bedside Glucose 169 108 Sodium Level 141 Potassium Level 4.7 Chloride Level 109 # Carbon Dioxide Level 21 # Anion Gap 16 Blood Urea Nitrogen 39 H Creatinine 1.21 H Glucose Level 170 Lactic Acid Level 3.7 H Calcium Level 8.1 L Total Bilirubin 0.1 L Direct Bilirubin 0.00 Indirect Bilirubin 0.1 Aspartate Amino Transf (AST/SGOT) 185 H Alanine Aminotransferase (ALT/SGPT) 210 H Alkaline Phosphatase 68 Total Protein 5.8 #L Albumin 3.5 # Globulin 2.30 Albumin/Globulin Ratio 1.52 Random Cortisol > 123.0 Medications Medications Current Medications Famotidine (Pepcid) 20 mg Q12 PO Last administered on 04/12/17 08:59; Admin Dose 20 MG; Start 04/11/17 at 21:00 Enoxaparin Sodium 40 mg 40 mg DAILY SC Last administered on 04/12/17 08:49; Admin Dose 40 MG; Start 04/12/17 at 09:00 Piperacillin Sod/ Tazobactam Sod 100 ml @ 200 mls/hr Q6 IVPB Last administered on 04/12/17 11:32; Admin Dose 200 MLS/HR; Start 04/11/17 at 15:00 Norepinephrine/ Dextrose (Levophed/D5W) 500 ml @ 0 mls/hr TITRATE IV Last administered on 04/12/17 00:46; Admin Dose 46.87 MLS/HR; Start 04/11/17 at 12:30 Aspirin (Aspirin) 325 mg DAILY NGT Last administered on 04/12/17 08:59; Admin Dose 325 MG; Start 04/12/17 at 09:00 Metoprolol Tartrate (Lopressor) 25 mg BID NGT ; Start 04/11/17 at 21:00 Metoprolol Tartrate (Lopressor) 5 mg Q4H PRN IV HR>110 Hold SBP<110; Start at 13:30 Hydrocortisone (Cortef) 10 mg QHS GTB ; Start 04/11/17 at 21:00 Hydrocortisone (Cortef) 20 mg DAILY GTB Last administered on 04/12/17 11:32; Admin Dose 20 MG; Start 04/12/17 at 09:00 Lansoprazole (Prevacid) 30 mg DAILY GTB Last administered on 04/12/17 08:59; Admin Dose 30 MG; Start 04/12/17 at 09:00 Insulin Aspart NOVOLOG *MILD* ALGORI... Q4 SC Last administered on 04/12/17 08: 58; Admin Dose 1 UNIT; Start 04/11/17 at 17:00 Phenylephrine HCl/ Dextrose (Chuy-Syneph/D5W) 500 ml @ 0 mls/hr TITRATE IV Last administered on 04/12/17 02:52; Admin Dose 75 MLS/HR; Start 04/11/17 at 16:00 Miscellaneous Information 1 ea NOTE XX ; Start 04/11/17 at 16:30 Glucose (Glutose) 15 gm Q15M PRN PO DECREASED GLUCOSE; Start 04/11/17 at 16:30 Glucose (Glutose) 22.5 gm Q15M PRN PO DECREASED GLUCOSE; Start 04/11/17 at 16: 30 Dextrose (D50w Syringe) 25 ml Q15M PRN IV DECREASED GLUCOSE Last administered on 04/11/17 19:26; Admin Dose 25 ML; Start 04/11/17 at 16:30 Dextrose (D50w Syringe) 50 ml Q15M PRN IV DECREASED GLUCOSE; Start 04/11/17 at 16:30 Glucagon (Glucagen) 1 mg Q15M PRN IM DECREASED GLUCOSE; Start 04/11/17 at 16:30 Glucose (Glutose) 15 gm Q15M PRN BUCCAL DECREASED GLUCOSE; Start 04/11/17 at 16 :30 Hydrocortisone 50 mg 50 mg QID IV Last administered on 04/12/17 12:35; Admin Dose 50 MG; Start 04/11/17 at 23:00 Sodium Chloride 1,000 ml @ 125 mls/hr Q8H IV Last administered on 04/12/17 06: 43; Admin Dose 125 MLS/HR; Start 04/11/17 at 19:30 Midazolam HCl 50 ml @ 1 mls/hr TITRATE IV Last administered on 04/11/17 23:18 ; Admin Dose 14 MLS/HR; Start 04/11/17 at 23:30 Fentanyl (Sublimaze) 100 ml @ 0.5 mls/hr TITRATE IV ; Start 04/12/17 at 09:30 Vancomycin HCl 125 mg 125 mg Q6 PO Last administered on 04/12/17 11:32; Admin Dose 125 MG; Start 04/12/17 at 12:00 Vancomycin HCl 250 ml @ 125 mls/hr Q36H IVPB ; Start 04/14/17 at 01:00 Lactated Ringer's (Lr) 500 ml @ 500 mls/hr Q1H ONCE IV ; Start 04/12/17 at 13:30 ; Stop 04/12/17 at 14:29; Status MAUREEN TEIXEIRA MD Apr 12, 2017 13:27
[2017-04-12] MEDS ORDERED: LACTATED RINGER'S 500 ML IV ONE ×2 (13:30→15:30)
--- NOTE | 2017-04-12 13:59 | CONS ---
Date/Time of Note Date/Time of Note DATE: 04/12/17 TIME: 13:53 Assessment/Plan Assessment/Plan Additional Assessment/Plan 1.Positive trop-likely type 2 demand in setting of tachycardia and resp distress - low BP - on mult pressors - con't support 2.abnl ecg 3.Tacycardia-S tach 4.HTN 5.Resp failue s/po intubation - on vent now. 6.Tongue ca - intubated. 7. PAF h/o - tachy now, difficult to control rate with low BP. 8. Anemia 9. Incresaed LFT';s 9. CHF - increased fluids now - difficult to remove fluid with low bp - WILL CONSIDER LASIX IF STILL OVERLOADED. Consultation Date/Type/Reason Admit Date/Time Apr 11, 2017 at 11:28 Initial Consult Date 04/12/17 Type of Consultation: Pulm/CCM Referring Provider: GABBI GOMES MD 24 HR Interval Summary Free Text/Dictation bp STILL LOW - TACHY - CON'T SUPPORTIVE CARE - PT ON ANTI-BX. ROS: No fever, no chills, no nausea, no vomiting, no diarrhea/constipation No recent weight changes No chest pain, no PND, no orthopnea No dizziness, blurred vision No thirst, no heat or cold intolerance (per nurse) Exam/Review of Systems Vital Signs Vitals Vital Signs Date Time Temp Pulse Resp B/P Pulse Ox O2 Delivery O2 Flow Rate FiO2 04/12/17 12:45 135 26 135/81 100 Mechanical Ventilator 04/12/17 12:06 100 04/12/17 12:00 98.9 04/12/17 08:00 Intake and Output 04/11/17 04/11/17 04/12/17 15:00 23:00 07:00 Intake Total 3350 ml 340.4 ml 2915.70 ml Output Total 370 ml 270 ml Balance 3350 ml -29.6 ml 2645.70 ml Exam General: WN/WD/NAD, AOx 0 HEENT: Unicetric/atraumatic/EOMI (does not follow commands) NECK: JVD elevated, no thyromegaly - intubated Lymph: no lymphadenopathy HEART: regular with no S3, II/ systolic murmur at apex LUNGS: Coarse sounds ABD: soft, NT, ND, +BS : Intact Neuro: non focal SKIN: chronic changes EXT: trace edema Results Result Diagram: 04/12/17 0505 04/12/17 1045 Results 24 hrs Laboratory Tests Test 04/11/17 14:00 04/11/17 15:05 04/11/17 16:30 04/11/17 18:15 Urine Color YELLOW Urine Clarity SLIGHTLY CLOUDY A Urine pH 6.0 Urine Specific [place] 1.019 Urine Ketones NEGATIVE Urine Nitrite NEGATIVE Urine Bilirubin NEGATIVE Urine Urobilinogen NEGATIVE Urine Leukocyte Esterase NEGATIVE Urine Microscopic RBC 1 Urine Microscopic WBC 3 Urine Mucus FEW A Urine Hemoglobin NEGATIVE Urine Glucose NEGATIVE Urine Total Protein 2+ H Lactic Acid Level 2.3 H 2.6 H 3.6 H Troponin I 1.140 *H 2.320 *H B-Type Natriuretic Peptide 8000 H Thyroid Stimulating Hormone (TSH) 4.110 Blood Gas Specimen Source Blood arterial Arterial Blood Date Drawn 04/11/2017 3:50:50 PM Arterial Blood pH (Temp corrected) 7.274 *L Arterial Blood pCO2 (Temp correct) 54.5 H Arterial Blood pO2 (Temp corrected) 68.0 L Arterial Blood HCO3 24.7 Arterial Blood Base Excess -2.7 Arterial Blood Oxygen Saturation 90.7 L Jonn Test N/A Arterial Blood Gas Puncture Site LB Arterial Blood Carboxyhemoglobin 0.3 Arterial Blood Methemoglobin 0.5 Blood Gas A-a O2 Differential 590.5 H Oxyhemoglobin Percent 90.0 L Total Hemoglobin 12.1 Blood Gas Temperature 37.0 Blood Gas Respiration Rate 16.0 Blood Gas Actual Respiration Rate 25 Blood Gas Modality VENT - AC FiO2 100.0 Blood Gas Tidal Volume 450.0 Blood Gas Low PEEP Setting 0 Blood Gas Critical Value Read Back MARILU TIMMONS Blood Gas Notified Whom Lorna Blood Gas Notified Time 04/11/2017 4:01:43 PM Test 04/11/17 18:58 04/11/17 19:23 04/11/17 19:54 04/11/17 20:30 Bedside Glucose 63 L 77 115 Lactic Acid Level 5.0 *H Test 04/11/17 21:33 04/11/17 22:10 04/11/17 23:45 04/12/17 01:00 Bedside Glucose 130 Lactic Acid Level 5.2 *H 5.2 *H Blood Gas Specimen Source Blood arterial Arterial Blood Date Drawn 04/11/2017 11:45:16 PM Arterial Blood pH (Temp corrected) 7.196 *L Arterial Blood pCO2 (Temp correct) 53.0 H Arterial Blood pO2 (Temp corrected) 72.7 L Arterial Blood HCO3 20.1 L Arterial Blood Base Excess -8.1 L Arterial Blood Oxygen Saturation 92.5 L Jonn Test ACCEPTAB Arterial Blood Gas Puncture Site Right Radial Arterial Blood Carboxyhemoglobin 0.3 Arterial Blood Methemoglobin 0.4 Blood Gas A-a O2 Differential 587.3 H Oxyhemoglobin Percent 91.9 L Total Hemoglobin 11.2 L Blood Gas Temperature 37.0 Blood Gas Respiration Rate 16.0 Blood Gas Actual Respiration Rate 18 Blood Gas Modality VENT - AC FiO2 100.0 Blood Gas Tidal Volume 500.0 Blood Gas Low PEEP Setting 0 Blood Gas Critical Value Read Back ELISHA MICHEL Blood Gas Notified Whom JANETTE Blood Gas Notified Time 04/12/2017 12:01:06 AM Troponin I 2.040 *H Test 04/12/17 01:07 04/12/17 04:26 04/12/17 05:00 04/12/17 05:05 Bedside Glucose 173 184 Blood Gas Specimen Source Blood arterial Arterial Blood Date Drawn 04/12/2017 5:17:19 AM Arterial Blood pH (Temp corrected) 7.222 *L Arterial Blood pCO2 (Temp correct) 42.8 Arterial Blood pO2 (Temp corrected) 70.8 L Arterial Blood HCO3 17.2 L Arterial Blood Base Excess -10.0 L Arterial Blood Oxygen Saturation 93.0 L Jonn Test ACCEPTAB Arterial Blood Gas Puncture Site Right Radial Arterial Blood Carboxyhemoglobin 0.3 Arterial Blood Methemoglobin 0.3 Blood Gas A-a O2 Differential 599.4 H Oxyhemoglobin Percent 92.4 L Total Hemoglobin 11.6 L Blood Gas Temperature 37.0 Blood Gas Respiration Rate 22.0 Blood Gas Actual Respiration Rate 22 Blood Gas Modality VENT - AC FiO2 100.0 Blood Gas Tidal Volume 500.0 Blood Gas Critical Value Read Back MARILU MCINTYRE Blood Gas Notified Whom BR Blood Gas Notified Time 04/12/2017 5:23:02 AM White Blood Count 27.9 #H Red Blood Count 3.39 L Hemoglobin 12.1 Hematocrit 38.3 Mean Corpuscular Volume 113.0 H Mean Corpuscular Hemoglobin 35.7 H Mean Corpuscular Hemoglobin Concent 31.6 L Red Cell Distribution Width 14.6 H Platelet Count 274 Mean Platelet Volume 12.3 H Neutrophils % 14.0 L Band Neutrophils % 53.0 H Lymphocytes % 6.0 L Monocytes % 5.0 Eosinophils % Basophils % Metamyelocytes % 12.0 H Myelocytes % 10.0 H Neutrophils # 3.9 Lymphocytes # 1.7 Monocytes # 1.4 H Eosinophils # Basophils # Metamyelocytes # 3.3 Myelocytes # 2.8 Large Platelets FEW Giant Platelets OCCASIONAL Polychromasia 1+ Poikilocytosis 1+ Anisocytosis 1+ Macrocytosis 2+ Lactic Acid Level 5.1 *H Test 04/12/17 08:56 04/12/17 10:45 04/12/17 12:38 Bedside Glucose 169 108 Sodium Level 141 Potassium Level 4.7 Chloride Level 109 # Carbon Dioxide Level 21 # Anion Gap 16 Blood Urea Nitrogen 39 H Creatinine 1.21 H Glucose Level 170 Lactic Acid Level 3.7 H Calcium Level 8.1 L Total Bilirubin 0.1 L Direct Bilirubin 0.00 Indirect Bilirubin 0.1 Aspartate Amino Transf (AST/SGOT) 185 H Alanine Aminotransferase (ALT/SGPT) 210 H Alkaline Phosphatase 68 Total Protein 5.8 #L Albumin 3.5 # Globulin 2.30 Albumin/Globulin Ratio 1.52 Random Cortisol > 123.0 Medications Medications Current Medications Famotidine (Pepcid) 20 mg Q12 PO Last administered on 04/12/17 08:59; Admin Dose 20 MG; Start 04/11/17 at 21:00 Enoxaparin Sodium 40 mg 40 mg DAILY SC Last administered on 04/12/17 08:49; Admin Dose 40 MG; Start 04/12/17 at 09:00 Piperacillin Sod/ Tazobactam Sod 100 ml @ 200 mls/hr Q6 IVPB Last administered on 04/12/17 11:32; Admin Dose 200 MLS/HR; Start 04/11/17 at 15:00 Norepinephrine/ Dextrose (Levophed/D5W) 500 ml @ 0 mls/hr TITRATE IV Last administered on 04/12/17 00:46; Admin Dose 46.87 MLS/HR; Start 04/11/17 at 12:30 Aspirin (Aspirin) 325 mg DAILY NGT Last administered on 04/12/17 08:59; Admin Dose 325 MG; Start 04/12/17 at 09:00 Metoprolol Tartrate (Lopressor) 25 mg BID NGT ; Start 04/11/17 at 21:00 Metoprolol Tartrate (Lopressor) 5 mg Q4H PRN IV HR>110 Hold SBP<110; Start at 13:30 Hydrocortisone (Cortef) 10 mg QHS GTB ; Start 04/11/17 at 21:00 Hydrocortisone (Cortef) 20 mg DAILY GTB Last administered on 04/12/17 11:32; Admin Dose 20 MG; Start 04/12/17 at 09:00 Lansoprazole (Prevacid) 30 mg DAILY GTB Last administered on 04/12/17 08:59; Admin Dose 30 MG; Start 04/12/17 at 09:00 Insulin Aspart NOVOLOG *MILD* ALGORI... Q4 SC Last administered on 04/12/17 08: 58; Admin Dose 1 UNIT; Start 04/11/17 at 17:00 Phenylephrine HCl/ Dextrose (Chuy-Syneph/D5W) 500 ml @ 0 mls/hr TITRATE IV Last administered on 04/12/17 02:52; Admin Dose 75 MLS/HR; Start 04/11/17 at 16:00 Miscellaneous Information 1 ea NOTE XX ; Start 04/11/17 at 16:30 Glucose (Glutose) 15 gm Q15M PRN PO DECREASED GLUCOSE; Start 04/11/17 at 16:30 Glucose (Glutose) 22.5 gm Q15M PRN PO DECREASED GLUCOSE; Start 04/11/17 at 16: 30 Dextrose (D50w Syringe) 25 ml Q15M PRN IV DECREASED GLUCOSE Last administered on 04/11/17 19:26; Admin Dose 25 ML; Start 04/11/17 at 16:30 Dextrose (D50w Syringe) 50 ml Q15M PRN IV DECREASED GLUCOSE; Start 04/11/17 at 16:30 Glucagon (Glucagen) 1 mg Q15M PRN IM DECREASED GLUCOSE; Start 04/11/17 at 16:30 Glucose (Glutose) 15 gm Q15M PRN BUCCAL DECREASED GLUCOSE; Start 04/11/17 at 16 :30 Hydrocortisone 50 mg 50 mg QID IV Last administered on 04/12/17 12:35; Admin Dose 50 MG; Start 04/11/17 at 23:00 Sodium Chloride 1,000 ml @ 125 mls/hr Q8H IV Last administered on 04/12/17 06: 43; Admin Dose 125 MLS/HR; Start 04/11/17 at 19:30 Midazolam HCl 50 ml @ 1 mls/hr TITRATE IV Last administered on 04/11/17 23:18 ; Admin Dose 14 MLS/HR; Start 04/11/17 at 23:30 Fentanyl (Sublimaze) 100 ml @ 0.5 mls/hr TITRATE IV ; Start 04/12/17 at 09:30 Vancomycin HCl 125 mg 125 mg Q6 PO Last administered on 04/12/17 11:32; Admin Dose 125 MG; Start 04/12/17 at 12:00 Vancomycin HCl 250 ml @ 125 mls/hr Q36H IVPB ; Start 04/14/17 at 01:00 Lactated Ringer's (Lr) 500 ml @ 500 mls/hr Q1H ONCE IV Last administered on 13:39; Admin Dose 500 MLS/HR; Start 04/12/17 at 13:30; Stop 04/12/17 at 14: 29 ALYSA HART MD Apr 12, 2017 13:59
--- NOTE | 2017-04-12 15:27 | CONS ---
Date/Time of Note Date/Time of Note DATE: 04/12/17 TIME: 15:08 Consultation Date/Type/Reason Admit Date/Time Apr 11, 2017 at 11:28 Type of Consultation: infectious disease Reason for Consultation The patient is a 66-year-old white female who was admitted from a nursing home facility on 04/11/2017 with a chief complaint of desaturation vomiting and recurrent aspiration. On admission white count was 13,100 hemoglobin 10.9 g. Chest x-ray revealed bilateral perihilar groundglass densities. A CT scan of the abdomen and pelvis revealed air bronchograms in the right lower lobe and left lower lobe a small, small pericardial effusion, and sludge and small gallstones in the gallbladder. There was an fluid in the cecum and the ascending colon. Ultrasound revealed gallstones. No gallbladder thickening. Patient had a temperature of 102 on admission. Patient required intubation for stabilization having failed the BiPAP and complicated with the continuous vomiting. It should be noted the patient is [place]. Patient was begun treatment with intravenous vancomycin and Zosyn and transferred to the intensive care unit. The white count christen to 27,900 with 15 polys and 30 percent bands. Lactic acid christen from 2.3-5.0. CO2 content was 21 at this time. Arterial blood gas on 100% O2 revealed a pH of 7.222 PCO2 of 70 and a PCO2 of 43. Cultures of the urine and blood currently are negative. Patient was seen in renal consultation by Dr. Valderrama who diagnosed nonoliguric acute kidney injury. Discussion with the patient's revealed that the patient has had a problem with aspiration having recently been in [facility] for the last 3 months or so and now transferred to a nursing home facility. She was treated several times for pneumonia while in the nursing home facility with antibiotics. She has a history of surgery for cancer of the tongue. She has a G-tube because she is unable to swallow successfully. Past medical history: Adrenal insufficiency. 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 Diabetes mellitus. History of respiratory failure. Hypothyroidism. Hyperlipidemia. Allergies: Promethazine and oxycodone. Her medications include on admission included prednisone 10 mg metoprolol and Protonix. Physical examination. Reveals a fair skinned, well-nourished well-developed white female lying in bed with the endotracheal tube in place, G-tube in Place, and. Latif catheter in place patient's pupils are contracted but reactive. She does not voluntarily open her eyes. Because of sedation. There is no jugular venous distention the chest is clear to auscultation. Abdomen has a G- tube in the left upper quadrant. No palpable masses or tenderness in the abdomen as the patient does not wince when pressures applied in all 4 quadrants especially the right upper quadrant. There are no bowel sounds present. ( There is consideration for Clostridium difficile because of previous antibiotic treatment. However nonactive bowel sounds do not speak for this diagnosis. Cultures are pending for C. difficile.) Examination of the extremities reveals no edema. No cyanosis. Neurologic examination was limited. Diagnoses: Systemic inflammatory response Aspiration pneumonia recurrent Acute respiratory failure Metabolic acidosis Adrenal insufficiency Nonoliguric acute kidney injury Diabetes mellitus Hypothyroidism . Recommendation cover for Clostridium difficile with vancomycin 125 mg 4 times daily per nasogastric tube. MRSA screen Sputum culture Gram stain culture and sensitivity. Reglan 10 mg every 6 hours IV. Elevation of head of bed 30. Continue proton pump inhibitor Consider J-tube re-. Placement for G-tube. This is E Elvie Schultz MD for Dr. Dave Le thank you Respiratory: other (intubated) Cardiovascular: other (h/o AF) Gastrointestinal: vomiting Genitourinary: other (No hematuria) Neurologic: other (sedated) Endocrine: other (hypothyroid) Past Medical History Medical History: hypertension, hypothyroid, other Past Surgical History Past Surgical Hx: other (G tube, prior trach) Social History Alcohol Use: none Smoking Status: Never smoker Drug Use: none Exam/Review of Systems Vital Signs Vitals Vital Signs Date Time Temp Pulse Resp B/P Pulse Ox O2 Delivery O2 Flow Rate FiO2 04/12/17 14:30 133 27 108/65 98 Mechanical Ventilator 04/12/17 14:16 80 04/12/17 12:00 98.9 04/12/17 08:00 Intake and Output 04/11/17 04/11/17 04/12/17 15:00 23:00 07:00 Intake Total 3350 ml 340.4 ml 2915.70 ml Output Total 370 ml 270 ml Balance 3350 ml -29.6 ml 2645.70 ml Results Result Diagram: 04/12/17 0505 04/12/17 1045 Results 24 hrs Laboratory Tests Test 04/11/17 16:30 04/11/17 18:15 04/11/17 18:58 04/11/17 19:23 Lactic Acid Level 2.6 H 3.6 H Troponin I 2.320 *H Bedside Glucose 63 L 77 Test 04/11/17 19:54 04/11/17 20:30 04/11/17 21:33 04/11/17 22:10 Bedside Glucose 115 130 Lactic Acid Level 5.0 *H 5.2 *H Test 04/11/17 23:45 04/12/17 01:00 04/12/17 01:07 04/12/17 04:26 Blood Gas Specimen Source Blood arterial Arterial Blood Date Drawn 04/11/2017 11:45:16 PM Arterial Blood pH (Temp corrected) 7.196 *L Arterial Blood pCO2 (Temp correct) 53.0 H Arterial Blood pO2 (Temp corrected) 72.7 L Arterial Blood HCO3 20.1 L Arterial Blood Base Excess -8.1 L Arterial Blood Oxygen Saturation 92.5 L Jonn Test ACCEPTAB Arterial Blood Gas Puncture Site Right Radial Arterial Blood Carboxyhemoglobin 0.3 Arterial Blood Methemoglobin 0.4 Blood Gas A-a O2 Differential 587.3 H Oxyhemoglobin Percent 91.9 L Total Hemoglobin 11.2 L Blood Gas Temperature 37.0 Blood Gas Respiration Rate 16.0 Blood Gas Actual Respiration Rate 18 Blood Gas Modality VENT - AC FiO2 100.0 Blood Gas Tidal Volume 500.0 Blood Gas Low PEEP Setting 0 Blood Gas Critical Value Read Back TMEHROTRA RN Blood Gas Notified Whom MA Blood Gas Notified Time 04/12/2017 12:01:06 AM Lactic Acid Level 5.2 *H Troponin I 2.040 *H Bedside Glucose 173 184 Test 04/12/17 05:00 04/12/17 05:05 04/12/17 08:56 04/12/17 10:45 Blood Gas Specimen Source Blood arterial Arterial Blood Date Drawn 04/12/2017 5:17:19 AM Arterial Blood pH (Temp corrected) 7.222 *L Arterial Blood pCO2 (Temp correct) 42.8 Arterial Blood pO2 (Temp corrected) 70.8 L Arterial Blood HCO3 17.2 L Arterial Blood Base Excess -10.0 L Arterial Blood Oxygen Saturation 93.0 L Jonn Test ACCEPTAB Arterial Blood Gas Puncture Site Right Radial Arterial Blood Carboxyhemoglobin 0.3 Arterial Blood Methemoglobin 0.3 Blood Gas A-a O2 Differential 599.4 H Oxyhemoglobin Percent 92.4 L Total Hemoglobin 11.6 L Blood Gas Temperature 37.0 Blood Gas Respiration Rate 22.0 Blood Gas Actual Respiration Rate 22 Blood Gas Modality VENT - AC FiO2 100.0 Blood Gas Tidal Volume 500.0 Blood Gas Critical Value Read Back MARILU MCINTYRE Blood Gas Notified Whom BR Blood Gas Notified Time 04/12/2017 5:23:02 AM White Blood Count 27.9 #H Red Blood Count 3.39 L Hemoglobin 12.1 Hematocrit 38.3 Mean Corpuscular Volume 113.0 H Mean Corpuscular Hemoglobin 35.7 H Mean Corpuscular Hemoglobin Concent 31.6 L Red Cell Distribution Width 14.6 H Platelet Count 274 Mean Platelet Volume 12.3 H Neutrophils % 14.0 L Band Neutrophils % 53.0 H Lymphocytes % 6.0 L Monocytes % 5.0 Eosinophils % Basophils % Metamyelocytes % 12.0 H Myelocytes % 10.0 H Neutrophils # 3.9 Lymphocytes # 1.7 Monocytes # 1.4 H Eosinophils # Basophils # Metamyelocytes # 3.3 Myelocytes # 2.8 Large Platelets FEW Giant Platelets OCCASIONAL Polychromasia 1+ Poikilocytosis 1+ Anisocytosis 1+ Macrocytosis 2+ Lactic Acid Level 5.1 *H 3.7 H Bedside Glucose 169 Sodium Level 141 Potassium Level 4.7 Chloride Level 109 # Carbon Dioxide Level 21 # Anion Gap 16 Blood Urea Nitrogen 39 H Creatinine 1.21 H Glucose Level 170 Calcium Level 8.1 L Total Bilirubin 0.1 L Direct Bilirubin 0.00 Indirect Bilirubin 0.1 Aspartate Amino Transf (AST/SGOT) 185 H Alanine Aminotransferase (ALT/SGPT) 210 H Alkaline Phosphatase 68 Total Protein 5.8 #L Albumin 3.5 # Globulin 2.30 Albumin/Globulin Ratio 1.52 Random Cortisol > 123.0 Test 04/12/17 12:38 Bedside Glucose 108 Medications Medications Current Medications Famotidine (Pepcid) 20 mg Q12 PO Last administered on 04/12/17 08:59; Admin Dose 20 MG; Start 04/11/17 at 21:00 Enoxaparin Sodium 40 mg 40 mg DAILY SC Last administered on 04/12/17 08:49; Admin Dose 40 MG; Start 04/12/17 at 09:00 Piperacillin Sod/ Tazobactam Sod 100 ml @ 200 mls/hr Q6 IVPB Last administered on 04/12/17 11:32; Admin Dose 200 MLS/HR; Start 04/11/17 at 15:00 Norepinephrine/ Dextrose (Levophed/D5W) 500 ml @ 0 mls/hr TITRATE IV Last administered on 04/12/17 00:46; Admin Dose 46.87 MLS/HR; Start 04/11/17 at 12:30 Aspirin (Aspirin) 325 mg DAILY NGT Last administered on 04/12/17 08:59; Admin Dose 325 MG; Start 04/12/17 at 09:00 Metoprolol Tartrate (Lopressor) 25 mg BID NGT ; Start 04/11/17 at 21:00 Metoprolol Tartrate (Lopressor) 5 mg Q4H PRN IV HR>110 Hold SBP<110; Start at 13:30 Hydrocortisone (Cortef) 10 mg QHS GTB ; Start 04/11/17 at 21:00 Hydrocortisone (Cortef) 20 mg DAILY GTB Last administered on 04/12/17 11:32; Admin Dose 20 MG; Start 04/12/17 at 09:00 Lansoprazole (Prevacid) 30 mg DAILY GTB Last administered on 04/12/17 08:59; Admin Dose 30 MG; Start 04/12/17 at 09:00 Insulin Aspart NOVOLOG *MILD* ALGORI... Q4 SC Last administered on 04/12/17 08: 58; Admin Dose 1 UNIT; Start 04/11/17 at 17:00 Phenylephrine HCl/ Dextrose (Chuy-Syneph/D5W) 500 ml @ 0 mls/hr TITRATE IV Last administered on 04/12/17 02:52; Admin Dose 75 MLS/HR; Start 04/11/17 at 16:00 Miscellaneous Information 1 ea NOTE XX ; Start 04/11/17 at 16:30 Glucose (Glutose) 15 gm Q15M PRN PO DECREASED GLUCOSE; Start 04/11/17 at 16:30 Glucose (Glutose) 22.5 gm Q15M PRN PO DECREASED GLUCOSE; Start 04/11/17 at 16: 30 Dextrose (D50w Syringe) 25 ml Q15M PRN IV DECREASED GLUCOSE Last administered on 04/11/17 19:26; Admin Dose 25 ML; Start 04/11/17 at 16:30 Dextrose (D50w Syringe) 50 ml Q15M PRN IV DECREASED GLUCOSE; Start 04/11/17 at 16:30 Glucagon (Glucagen) 1 mg Q15M PRN IM DECREASED GLUCOSE; Start 04/11/17 at 16:30 Glucose (Glutose) 15 gm Q15M PRN BUCCAL DECREASED GLUCOSE; Start 04/11/17 at 16 :30 Hydrocortisone 50 mg 50 mg QID IV Last administered on 04/12/17 12:35; Admin Dose 50 MG; Start 04/11/17 at 23:00 Sodium Chloride 1,000 ml @ 125 mls/hr Q8H IV Last administered on 04/12/17 06: 43; Admin Dose 125 MLS/HR; Start 04/11/17 at 19:30 Midazolam HCl 50 ml @ 1 mls/hr TITRATE IV Last administered on 04/11/17 23:18 ; Admin Dose 14 MLS/HR; Start 04/11/17 at 23:30 Fentanyl (Sublimaze) 100 ml @ 0.5 mls/hr TITRATE IV ; Start 04/12/17 at 09:30 Vancomycin HCl 125 mg 125 mg Q6 PO Last administered on 04/12/17 11:32; Admin Dose 125 MG; Start 04/12/17 at 12:00 Vancomycin HCl (Vancocin) 250 ml @ 125 mls/hr Q36H IVPB ; Start 04/14/17 at 01: 00 Metoclopramide HCl (Reglan) 10 mg Q6 IV ; Start 04/12/17 at 18:00 Trevin SCHULTZ MD Apr 12, 2017 15:25
[2017-04-12] MEDS: METOCLOPRAMIDE 10 MG INJ IV SCH (17:57)
[2017-04-12] MEDS: DEXTROSE 50% 50 ML SYRINGE IV PRN ×2 (18:13→23:56)
[2017-04-12] MEDS: FENTAnyl (DRIP) 1000 mcg/100mL 100 ML IV SCH (19:56)
[2017-04-12] MEDS: MIDAZOLAM (DRIP) 50 mg/50 mL 50 ML IV SCH (20:01)
[2017-04-12] MEDS ORDERED: LEVALBUTEROL (NEB) 0.31 MG/3 ML AMP HHN PRN (20:30)
[2017-04-12] MEDS: HYDROCORTISONE 5 MG TAB GTB SCH (20:38)
[2017-04-12] MEDS: LEVALBUTEROL (HFA) 15 GM INHALER INH PRN (21:54)
[2017-04-13] VITALS (70 sets, daily range): BP systolic 85–148; BP diastolic 51–105; PULSE 75–185; RESP 12–34
[2017-04-13] MEDS: METOCLOPRAMIDE 10 MG INJ IV SCH ×4 (00:24→17:42)
[2017-04-13] MEDS: INSULIN ASPART [NOVOLOG] 3 ML PEN SC SCH ×6 (00:35→21:44)
[2017-04-13 01:31] LABS: ADD UMIC YES; UR AMORPHOUS CRYSTAL FEW /HPF (NONE SEEN); UR ASCORBIC ACID NEGATIVE (NEGATIVE); UR BACTERIA FEW /HPF (NONE SEEN); UR BILIRUBIN (Dip) NEGATIVE (NEGATIVE); UR BLOOD (Dip) 1+ mg/dL (NEGATIVE); UR CLARITY CLOUDY (CLEAR); UR COLOR YELLOW (YELLOW); UR GLUCOSE (Dip) NEGATIVE (NEGATIVE); UR KETONES (Dip) NEGATIVE (NEGATIVE); UR LEUKOCYTE ESTERASE (Dip) NEGATIVE Leu/ul (NEGATIVE); UR NITRITE (Dip) NEGATIVE (NEGATIVE); UR RBC 2 /HPF (0-5); UR SPECIFIC GRAVITY (Dip) 1.014 (1.003-1.030); UR TOTAL PROTEIN (Dip) 1+ mg/dl (NEGATIVE); UR UROBILINOGEN (Dip) NEGATIVE (NEGATIVE)
[2017-04-13] MEDS: DEXTROSE 5%-0.9% NACL 1,000 ML IV SCH ×3 (03:15→21:48)
[2017-04-13] MEDS: MIDAZOLAM (DRIP) 50 mg/50 mL 50 ML IV SCH (04:30)
[2017-04-13] MEDS: LEVALBUTEROL (HFA) 15 GM INHALER INH PRN (05:02)
[2017-04-13] MEDS: PIPER-TAZO 3.375 GM IV (PMX) 100 ML IVPB SCH (05:36)
[2017-04-13] MEDS: VANCOMYCIN HCL 250 MG/5ML POSYG PO SCH ×3 (05:36→17:18)
[2017-04-13] MEDS: LEVOTHYROXINE 75 MCG TAB GTB SCH (05:36)
[2017-04-13 05:55] LABS: ABNORMAL IP MESSAGE 1; HEMATOCRIT 29.8 % (37.0-47.0); MEAN CORPUSCULAR HEMOGLOBIN 33.8 pg (29.0-33.0); MEAN CORPUSCULAR HGB CONC 30.2 g/dl (32.0-37.0); MEAN PLATELET VOLUME 10.7 fl (7.4-10.4); PLATELET COUNT 202 10^3/UL (140-415); RED BLOOD COUNT 2.66 10^6/ul (4.20-5.40); RED CELL DISTRIBUTION WIDTH 14.9 % (11.5-14.5); WHITE BLOOD COUNT 40.2 10^3/ul (4.8-10.8)
[2017-04-13 06:28] LABS: CALCIUM 7.5 mg/dl (8.4-10.2); CREATININE 1.14 mg/dl (0.44-1.00); MAGNESIUM 1.4 mg/dl (1.7-2.5); PHOSPHORUS 3.6 mg/dl (2.5-4.9); POTASSIUM 4.3 mmol/L (3.5-5.1)
[2017-04-13] MEDS ORDERED: MAGNESIUM SULFATE 2 GM/50 ML 50 ML IVPB ONE (07:30)
--- NOTE | 2017-04-13 07:47 | PN ---
Date/Time of Note Date/Time of Note DATE: 04/13/17 TIME: 07:41 Assessment/Plan VTE Prophylaxis VTE Prophylaxis Intervention: ambulation, other Lines/Catheters IV Catheter Type (from [facility]): Central Line Central line still needed: Yes Urinary Cath still in place: Yes Reason Cath still needed: other (indicate) Assessment/Plan Chief Complaint/Hosp Course 1. Nonoliguric aly. With previously normal baseline creatinine. Etiology is likely secondary to septic HPI with possible ATN, hemodynamics. -Renal function is improving with supportive care. -Continue IV fluids continue pressor support maintain map of 65 continue antibiotics 2. Septic shock. Etiology is likely secondary to aspiration pneumonia pneumonitis. The possibility of acute cholecystitis is a consideration. CT scan showed findings of pericholecystic fluid. -Patient evaluated by general surgery. Appreciate their help with management. No plan for surgery at this time. Continue current treatment plan IV fluids and IV antibiotics. Patient's pressor support is being weaned off. Follow-up with infectious disease and critical care for further help in management 3. Ventilator dependent respiratory failure. Etiology secondary to pneumonia, CHF. Vent settings ABG been reviewed. Continue current vent settings follow- up with pulmonary 4. Volume overload. Etiology likely secondary to sepsis capillary leak. Possible diastolic heart failure. At this point would defer any diuretic therapy as patient is in septic shock. 5. Elevated troponin. Possible non-STEMI type II. We will continue to monitor follow-up with cardiology 6. History of adrenal insufficiency. Patient currently on stress steroids. will continue 7. Acute encephalopathy etiologies toxic metabolic. Continue to monitor 8. Transaminitis. Etiology possibly multifactorial ischemic hepatitis, acute cholecystitis, sepsis. Monitor serial lft 9. Hypothyroidism continue Synthroid 10. Anemia. Monitor H&H 11. Mineral bone disorder will monitor calcium phosphorus levels 12. h/o tongue cancer with resection 13. History of diastolic heart failure/coronary disease -Continue medical management 14. Leukocytosis. Etiology is likely secondary sepsis, steroids. Other possibilities including C. difficile is a consideration. Will monitor closely. Expect to wean down stress steroids in the next 1-2 days. Follow-up with infectious disease. 15. Hypomagnesemia. Continue to monitor and replete as needed I spent greater than 40 minutes of critical care time with this pt Problems: Subjective 24 Hr Interval Summary Free Text/Dictation Patient remains critically ill. Being weaned off pressors. Currently on only 1 pressor. Patient's on full ventilatory support. No other events noted. Exam/Review of Systems Vital Signs Vitals Vital Signs Date Time Temp Pulse Resp B/P Pulse Ox O2 Delivery O2 Flow Rate FiO2 04/13/17 06:00 121 17 92/59 100 04/13/17 05:27 60 04/13/17 04:00 98.6 04/13/17 02:00 Mechanical Ventilator 04/12/17 08:00 Intake and Output 04/12/17 04/12/17 04/13/17 15:00 23:00 07:00 Intake Total 2142.35 ml 1098.75 ml 708.75 ml Output Total 295 ml 300 ml 210 ml Balance 1847.35 ml 798.75 ml 498.75 ml Exam intubated and sedated bandage on throat over former trach site tachycardic coarse breath sounds abd rigid, mildly distended PEG site c/d/i femoral line in R groin no rashes no le refugio Results Result Diagram: 04/13/17 0520 04/13/17 0520 Results 24 hrs Laboratory Tests Test 04/12/17 08:56 04/12/17 10:45 04/12/17 12:38 04/12/17 14:22 Bedside Glucose 169 108 Sodium Level 141 Potassium Level 4.7 Chloride Level 109 # Carbon Dioxide Level 21 # Anion Gap 16 Blood Urea Nitrogen 39 H Creatinine 1.21 H Glucose Level 170 Lactic Acid Level 3.7 H 3.6 H Calcium Level 8.1 L Total Bilirubin 0.1 L Direct Bilirubin 0.00 Indirect Bilirubin 0.1 Aspartate Amino Transf (AST/SGOT) 185 H Alanine Aminotransferase (ALT/SGPT) 210 H Alkaline Phosphatase 68 Total Protein 5.8 #L Albumin 3.5 # Globulin 2.30 Albumin/Globulin Ratio 1.52 Random Cortisol > 123.0 Test 04/12/17 18:10 04/12/17 18:30 04/12/17 18:52 04/12/17 20:37 Bedside Glucose 61 L 137 133 89 Test 04/12/17 23:53 04/13/17 00:24 04/13/17 04:33 04/13/17 05:15 Bedside Glucose 64 L 98 106 Lactic Acid Level 3.0 H Test 04/13/17 05:20 White Blood Count 40.2 #H Red Blood Count 2.66 #L Hemoglobin 9.0 #L Hematocrit 29.8 #L Mean Corpuscular Volume 112.0 H Mean Corpuscular Hemoglobin 33.8 H Mean Corpuscular Hemoglobin Concent 30.2 L Red Cell Distribution Width 14.9 H Platelet Count 202 # Mean Platelet Volume 10.7 H Neutrophils % Eosinophils % Neutrophils # Eosinophils # Sodium Level 144 Potassium Level 4.3 Chloride Level 110 Carbon Dioxide Level 20 L Anion Gap 18 H Blood Urea Nitrogen 32 H Creatinine 1.14 H Glucose Level 101 # Calcium Level 7.5 L Phosphorus Level 3.6 Magnesium Level 1.4 L Medications Medications Current Medications Famotidine (Pepcid) 20 mg Q12 PO Last administered on 04/12/17 20:38; Admin Dose 20 MG; Start 04/11/17 at 21:00 Enoxaparin Sodium 40 mg 40 mg DAILY SC Last administered on 04/12/17 08:49; Admin Dose 40 MG; Start 04/12/17 at 09:00 Piperacillin Sod/ Tazobactam Sod 100 ml @ 200 mls/hr Q6 IVPB Last administered on 04/13/17 05:36; Admin Dose 200 MLS/HR; Start 04/11/17 at 15:00 Norepinephrine/ Dextrose (Levophed/D5W) 500 ml @ 0 mls/hr TITRATE IV Last administered on 04/12/17 18:34; Admin Dose 18.75 MLS/HR; Start 04/11/17 at 12:30 Aspirin (Aspirin) 325 mg DAILY NGT Last administered on 04/12/17 08:59; Admin Dose 325 MG; Start 04/12/17 at 09:00 Metoprolol Tartrate (Lopressor) 25 mg BID NGT ; Start 04/11/17 at 21:00 Metoprolol Tartrate (Lopressor) 5 mg Q4H PRN IV HR>110 Hold SBP<110; Start at 13:30 Hydrocortisone (Cortef) 10 mg QHS GTB Last administered on 04/12/17 20:38; Admin Dose 10 MG; Start 04/11/17 at 21:00 Hydrocortisone (Cortef) 20 mg DAILY GTB Last administered on 04/12/17 11:32; Admin Dose 20 MG; Start 04/12/17 at 09:00 Lansoprazole (Prevacid) 30 mg DAILY GTB Last administered on 04/12/17 08:59; Admin Dose 30 MG; Start 04/12/17 at 09:00 Insulin Aspart NOVOLOG *MILD* ALGORI... Q4 SC Last administered on 04/12/17 08: 58; Admin Dose 1 UNIT; Start 04/11/17 at 17:00 Phenylephrine HCl/ Dextrose (Chuy-Syneph/D5W) 500 ml @ 0 mls/hr TITRATE IV Last administered on 04/12/17 02:52; Admin Dose 75 MLS/HR; Start 04/11/17 at 16:00 Miscellaneous Information 1 ea NOTE XX ; Start 04/11/17 at 16:30 Glucose (Glutose) 15 gm Q15M PRN PO DECREASED GLUCOSE; Start 04/11/17 at 16:30 Glucose (Glutose) 22.5 gm Q15M PRN PO DECREASED GLUCOSE; Start 04/11/17 at 16: 30 Dextrose (D50w Syringe) 25 ml Q15M PRN IV DECREASED GLUCOSE Last administered on 04/12/17 23:56; Admin Dose 25 ML; Start 04/11/17 at 16:30 Dextrose (D50w Syringe) 50 ml Q15M PRN IV DECREASED GLUCOSE; Start 04/11/17 at 16:30 Glucagon (Glucagen) 1 mg Q15M PRN IM DECREASED GLUCOSE; Start 04/11/17 at 16:30 Glucose (Glutose) 15 gm Q15M PRN BUCCAL DECREASED GLUCOSE; Start 04/11/17 at 16 :30 Hydrocortisone 50 mg 50 mg QID IV Last administered on 04/12/17 20:42; Admin Dose 50 MG; Start 04/11/17 at 23:00 Midazolam HCl 50 ml @ 1 mls/hr TITRATE IV Last administered on 04/13/17 04:30; Admin Dose 2 MLS/HR; Start 04/11/17 at 23:30 Fentanyl (Sublimaze) 100 ml @ 0.5 mls/hr TITRATE IV Last administered on 19:56; Admin Dose 0.5 MLS/HR; Start 04/12/17 at 09:30 Vancomycin HCl 125 mg 125 mg Q6 PO Last administered on 04/13/17 05:36; Admin Dose 125 MG; Start 04/12/17 at 12:00 Vancomycin HCl (Vancocin) 250 ml @ 125 mls/hr Q36H IVPB ; Start 04/14/17 at 01: 00 Metoclopramide HCl 10 mg 10 mg Q6 IV Last administered on 04/13/17 05:50; Admin Dose 10 MG; Start 04/12/17 at 18:00 Dextrose/Sodium Chloride 1,000 ml @ 100 mls/hr Q10H IV Last administered on 03:15; Admin Dose 100 MLS/HR; Start 04/13/17 at 02:00 Magnesium Sulfate (Magnesium Sulfate 2 Gm/50 ml) 50 ml @ 25 mls/hr ONCE ONCE IVPB ; Start 04/13/17 at 07:30; Stop 04/13/17 at 09:29 NINA MACIEL DO Apr 13, 2017 07:47
--- NOTE | 2017-04-13 08:24 | PN ---
Date/Time of Note Date/Time of Note DATE: 04/13/17 TIME: 07:58 Assessment/Plan Lines/Catheters IV C[facility]ter Type (from [facility]): Central Line Mims in Place (from [facility]): Yes Assessment/Plan Chief Complaint/Hosp Course 1. Cholelithiasis without cholecystitis: ischemic bowel Ct abd: sludge and small stones in the gallbladder. No gallbladder wall thickening is noted with some pericholecystic fluid is present. Patient on pressors; NG tube no output last night -No surgical intervention required at this time -HIDA - will continue to monitor -recommend CT angio Pneumonia: Recurrent; fevers; intubated; less secretions per -Pulmonary toilet -abx Vent dependent respiratory failure: likely 2/2 PNA+ CHF -as above -wean as patient condition permits Septic shock: On pressors; fevers overnight -on abx -supportive Transaminitis: likely 2/2 septic shock vs. cholecystitis; increasing -trend, monitor Elevated troponin:NSTEMI; septic shock/demand ischemia; tachycardic, coming down -trend Leukocytosis 2/2 pneumonia vs. other (urine, blood cultures negative); wbc increasing -on abx -judicious fluid management KEYONNA: likely 2/2 septic shock; mims with good output; Cr coming down -judicious fluid management -per nephro CHF: -judicious fluid management -medical optimization Adrenal Insufficiency: was on steroids previously Hypomagnesemia -electrolyte optimization -monitor for cardiac abnormalities Hypothyroidism -cont. synthroid Anemia: dilutional? -monitor -Transfuse as needed Patient seen and examined in collaboration with Dr. Justus Antonio Problems: Subjective 24 Hr Interval Summary Restarted on sedation, on pressors. fevers. tachycardic. Decreased secretions per . Appears comfortable. Intubated, unresponsive. No emesis, no OGT output. No diarrhea, sz, Exam/Review of Systems Vital Signs Vitals Vital Signs Date Time Temp Pulse Resp B/P Pulse Ox O2 Delivery O2 Flow Rate FiO2 04/14/17 06:45 98.4 140 25 159/100 98 Mechanical Ventilator 04/14/17 05:45 35 04/12/17 08:00 Intake and Output 04/13/17 04/13/17 04/14/17 15:00 23:00 07:00 Intake Total 1405.34 ml 1132.10 ml 1181 ml Output Total 60 ml 455 ml 140 ml Balance 1345.34 ml 677.10 ml 1041 ml Exam Free Text/Dictation Constitutional: other (unresponsive), well developed Head: atraumatic, normocephalic Eyes: PERRL, nl lids, nl sclera ENMT: intubated (ET tube), No mucosa pink and moist (pink and dry) Neck: non-tender, supple Respiratory: clear to auscultation (diminished at bases) Cardiovascular: nl pulses, regular rate and rhythm Gastrointestinal: bowel sounds (hypoactive), non-tender, soft, No distended, No rebound or guarding Genitourinary - Female: nl external genitalia Musculoskeletal: nl extremities to inspection Extremities: normal pulses, No edema Neurological: unresponsive Skin: nl turgor, No rash or lesions Lymph: nl lymph nodes Results Result Diagram: 04/14/17 0430 04/13/17 0520 ADDISON FREGOSO NP Apr 13, 2017 08:09
[2017-04-13] MEDS: METOPROLOL 25 MG TAB NGT SCH ×2 (09:00→21:00)
[2017-04-13 10:08] LABS: LYMPHOCYTES # 1.2 10^3/ul (0.8-2.9); MONOCYTE # 1.6 10^3/ul (0.3-0.9); MYELOCYTES # 5.6; NEUTROPHIL # 10.1 10^3/ul (1.6-7.5)
[2017-04-13 10:09] LABS: TOXIC GRANULATION FEW
[2017-04-13 10:10] LABS: PLATELET ESTIMATE PLT APPEAR ADEQUATE
[2017-04-13] MEDS: LANSOPRAZOLE 30 MG CAP GTB SCH (10:15)
[2017-04-13] MEDS: FAMOTIDINE 20 MG TAB PO SCH ×2 (10:15→21:37)
[2017-04-13] MEDS: ASPIRIN 325 MG TAB NGT SCH (10:15)
[2017-04-13] MEDS: ENOXAPARIN 40 MG/0.4 ML SYG SC SCH (10:16)
[2017-04-13] MEDS: HYDROCORTISONE 100 MG INJ IV SCH ×4 (10:16→21:36)
[2017-04-13] MEDS: HYDROCORTISONE 20 MG TAB GTB SCH (10:16)
[2017-04-13 10:42] LABS: ADD SCAN DIFF YES
--- NOTE | 2017-04-13 10:54 | CONS ---
Date/Time of Note Date/Time of Note DATE: 04/13/17 TIME: 10:51 Consult Date/Type/Reason Admit Date/Time Apr 11, 2017 at 11:28 Initial Consult Date 04/12/17 Type of Consultation: Pulm/CCM Ordering Provider: GABBI GOMES MD Subjective Off sedation. On vent. Peak pressures 39; Pplat 36. On levophed gtt. Objective Vital Signs Date Time Temp Pulse Resp B/P Pulse Ox O2 Delivery O2 Flow Rate FiO2 04/13/17 08:00 123 04/13/17 06:00 17 92/59 100 04/13/17 05:27 60 04/13/17 04:00 98.6 04/13/17 02:00 Mechanical Ventilator 04/12/17 08:00 Intake and Output 04/12/17 04/12/17 04/13/17 15:00 23:00 07:00 Intake Total 2142.35 ml 1098.75 ml 708.75 ml Output Total 295 ml 300 ml 210 ml Balance 1847.35 ml 798.75 ml 498.75 ml Exam HEENT: Neck supple; no JVD; no LAD CVS: RRR, S1 and S2 CHEST: Coarse Bs and rales R>L ABD: Soft, NT, + BS EXT: No c/c/e Results/Medications Result Diagram: 04/13/1751904/13/1720 Results 24 hrs Laboratory Tests Test 04/12/17 12:38 04/12/17 14:22 04/12/17 18:10 04/12/17 18:30 Bedside Glucose 108 61 L 137 Lactic Acid Level 3.6 H Test 04/12/17 18:52 04/12/17 20:37 04/12/17 23:53 04/13/17 00:24 Bedside Glucose 133 89 64 L 98 Test 04/13/17 04:33 04/13/17 05:15 04/13/17 05:20 04/13/17 10:15 Bedside Glucose 106 114 Lactic Acid Level 3.0 H White Blood Count 40.2 #H Red Blood Count 2.66 #L Hemoglobin 9.0 #L Hematocrit 29.8 #L Mean Corpuscular Volume 112.0 H Mean Corpuscular Hemoglobin 33.8 H Mean Corpuscular Hemoglobin Concent 30.2 L Red Cell Distribution Width 14.9 H Platelet Count 202 # Mean Platelet Volume 10.7 H Neutrophils % 25.0 L Band Neutrophils % 30.0 H Lymphocytes % 3.0 L Monocytes % 4.0 Eosinophils % Metamyelocytes % 24.0 H Myelocytes % 14.0 H Neutrophils # 10.1 H Lymphocytes # 1.2 Monocytes # 1.6 H Eosinophils # Metamyelocytes # 9.6 Myelocytes # 5.6 Toxic Granulation FEW Platelet Estimate PLT APPEAR ADEQUATE Large Platelets FEW Giant Platelets OCCASIONAL Sodium Level 144 Potassium Level 4.3 Chloride Level 110 Carbon Dioxide Level 20 L Anion Gap 18 H Blood Urea Nitrogen 32 H Creatinine 1.14 H Glucose Level 101 # Calcium Level 7.5 L Phosphorus Level 3.6 Magnesium Level 1.4 L Medications Current Medications Famotidine (Pepcid) 20 mg Q12 PO Last administered on 04/13/17 10:15; Admin Dose 20 MG; Start 04/11/17 at 21:00 Enoxaparin Sodium 40 mg 40 mg DAILY SC Last administered on 04/13/17 10:16; Admin Dose 40 MG; Start 04/12/17 at 09:00 Piperacillin Sod/ Tazobactam Sod 100 ml @ 200 mls/hr Q6 IVPB Last administered on 04/13/17 05:36; Admin Dose 200 MLS/HR; Start 04/11/17 at 15:00 Norepinephrine/ Dextrose (Levophed/D5W) 500 ml @ 0 mls/hr TITRATE IV Last administered on 04/12/17 18:34; Admin Dose 18.75 MLS/HR; Start 04/11/17 at 12:30 Aspirin (Aspirin) 325 mg DAILY NGT Last administered on 04/13/17 10:15; Admin Dose 325 MG; Start 04/12/17 at 09:00 Metoprolol Tartrate (Lopressor) 25 mg BID NGT ; Start 04/11/17 at 21:00 Metoprolol Tartrate (Lopressor) 5 mg Q4H PRN IV HR>110 Hold SBP<110; Start at 13:30 Hydrocortisone (Cortef) 10 mg QHS GTB Last administered on 04/12/17 20:38; Admin Dose 10 MG; Start 04/11/17 at 21:00 Hydrocortisone (Cortef) 20 mg DAILY GTB Last administered on 04/13/17 10:16; Admin Dose 20 MG; Start 04/12/17 at 09:00 Lansoprazole (Prevacid) 30 mg DAILY GTB Last administered on 04/13/17 10:15; Admin Dose 30 MG; Start 04/12/17 at 09:00 Insulin Aspart NOVOLOG *MILD* ALGORI... Q4 SC Last administered on 04/12/17 08: 58; Admin Dose 1 UNIT; Start 04/11/17 at 17:00 Phenylephrine HCl/ Dextrose (Chuy-Syneph/D5W) 500 ml @ 0 mls/hr TITRATE IV Last administered on 04/12/17 02:52; Admin Dose 75 MLS/HR; Start 04/11/17 at 16:00 Miscellaneous Information 1 ea NOTE XX ; Start 04/11/17 at 16:30 Glucose (Glutose) 15 gm Q15M PRN PO DECREASED GLUCOSE; Start 04/11/17 at 16:30 Glucose (Glutose) 22.5 gm Q15M PRN PO DECREASED GLUCOSE; Start 04/11/17 at 16: 30 Dextrose (D50w Syringe) 25 ml Q15M PRN IV DECREASED GLUCOSE Last administered on 04/12/17 23:56; Admin Dose 25 ML; Start 04/11/17 at 16:30 Dextrose (D50w Syringe) 50 ml Q15M PRN IV DECREASED GLUCOSE; Start 04/11/17 at 16:30 Glucagon (Glucagen) 1 mg Q15M PRN IM DECREASED GLUCOSE; Start 04/11/17 at 16:30 Glucose (Glutose) 15 gm Q15M PRN BUCCAL DECREASED GLUCOSE; Start 04/11/17 at 16 :30 Hydrocortisone 50 mg 50 mg QID IV Last administered on 04/13/17 10:16; Admin Dose 50 MG; Start 04/11/17 at 23:00 Midazolam HCl 50 ml @ 1 mls/hr TITRATE IV Last administered on 04/13/17 04:30; Admin Dose 2 MLS/HR; Start 04/11/17 at 23:30 Fentanyl (Sublimaze) 100 ml @ 0.5 mls/hr TITRATE IV Last administered on 19:56; Admin Dose 0.5 MLS/HR; Start 04/12/17 at 09:30 Vancomycin HCl 125 mg 125 mg Q6 PO Last administered on 04/13/17 05:36; Admin Dose 125 MG; Start 04/12/17 at 12:00 Vancomycin HCl (Vancocin) 250 ml @ 125 mls/hr Q36H IVPB ; Start 04/14/17 at 01: 00 Metoclopramide HCl 10 mg 10 mg Q6 IV Last administered on 04/13/17 05:50; Admin Dose 10 MG; Start 04/12/17 at 18:00 Dextrose/Sodium Chloride (D5-NS) 1,000 ml @ 100 mls/hr Q10H IV Last administered on 04/13/17 03:15; Admin Dose 100 MLS/HR; Start 04/13/17 at 02:00 Assessment/Plan Chief Complaint/Hosp Course Briefly, this is a 66-year-old female with a history of chronic resp failure s/ p prolonged hospitalization and trach, recently decannulated ~ 3 weeks ago, dysphagia s/p PEG, admitted 2 [facility] prior [facility] with severe septic shock requiring pressors and respiratory failure [facility]. Problems: Additional Assessment/Plan IMP: 1. Septic Shock--likely due to multilobar aspiration pneumonia vs. HCAP 2. Multifocal pneumonia aspiration vs. HCAP 3. Respiratory Failure 4. Lactic Acidosis 5. Demand Ischemia 6. Gall Stones--no evidence of acute choly RECS: 1. IVF's 2. Follow lactate clearance 3. Change zosyn to meropenem for now to cover ESBL and add azithro 4. Vent--V-AC with rate 28; Vt 450 PEEP 5 5. Sedation with fentanyl and propofol 6. Am labs/CXR 35 min cc time case d/w family MAUREEN COREA MD Apr 13, 2017 10:53
--- NOTE | 2017-04-13 12:15 | CONS ---
Date/Time of Note Date/Time of Note DATE: 04/13/17 TIME: 12:05 Consult Date/Type/Reason Admit Date/Time Apr 11, 2017 at 11:28 Initial Consult Date 04/12/17 Type of Consultation: Pulm/CCM Ordering Provider: GABBI GOMES MD Subjective d/w staff, Dr Valderrama and . rhythm was reviewed. she remains in NSR. pt remains intubated on vent in ICU. Nonverbal. Objective Vital Signs Date Time Temp Pulse Resp B/P Pulse Ox O2 Delivery O2 Flow Rate FiO2 04/13/17 11:30 125 28 94 35 04/13/17 06:00 92/59 04/13/17 04:00 98.6 04/13/17 02:00 Mechanical Ventilator 04/12/17 08:00 Intake and Output 04/12/17 04/12/17 04/13/17 15:00 23:00 07:00 Intake Total 2142.35 ml 1098.75 ml 708.75 ml Output Total 295 ml 300 ml 210 ml Balance 1847.35 ml 798.75 ml 498.75 ml Exam General: Intubated on vent in ICU HEENT: NC/AT. eyes are closed. . NECK: NO JVD. no stridor. s/p previous trach with dressing covering it. CV: RRR. systolic ejection murmur; no gallop or rubs. PULM: no wheezing or rhonchi. GI: SOFT, NT, ND, no rebound or guarding s/p PEG Extremity: trace B/L LE edema. no clubbing. neuro: sedated Psych: calm and pleasant rectal: deferred Derm: multiple echymosis Results/Medications Result Diagram: 04/13/17 0520 04/13/17 0520 Results 24 hrs Laboratory Tests Test 04/12/17 12:38 04/12/17 14:22 04/12/17 18:10 04/12/17 18:30 Bedside Glucose 108 61 L 137 Lactic Acid Level 3.6 H Test 04/12/17 18:52 04/12/17 20:37 04/12/17 23:53 04/13/17 00:24 Bedside Glucose 133 89 64 L 98 Test 04/13/17 04:33 04/13/17 05:15 04/13/17 05:20 04/13/17 10:15 Bedside Glucose 106 114 Lactic Acid Level 3.0 H White Blood Count 40.2 #H Red Blood Count 2.66 #L Hemoglobin 9.0 #L Hematocrit 29.8 #L Mean Corpuscular Volume 112.0 H Mean Corpuscular Hemoglobin 33.8 H Mean Corpuscular Hemoglobin Concent 30.2 L Red Cell Distribution Width 14.9 H Platelet Count 202 # Mean Platelet Volume 10.7 H Neutrophils % 25.0 L Band Neutrophils % 30.0 H Lymphocytes % 3.0 L Monocytes % 4.0 Eosinophils % Metamyelocytes % 24.0 H Myelocytes % 14.0 H Neutrophils # 10.1 H Lymphocytes # 1.2 Monocytes # 1.6 H Eosinophils # Metamyelocytes # 9.6 Myelocytes # 5.6 Toxic Granulation FEW Platelet Estimate PLT APPEAR ADEQUATE Large Platelets FEW Giant Platelets OCCASIONAL Sodium Level 144 Potassium Level 4.3 Chloride Level 110 Carbon Dioxide Level 20 L Anion Gap 18 H Blood Urea Nitrogen 32 H Creatinine 1.14 H Glucose Level 101 # Calcium Level 7.5 L Phosphorus Level 3.6 Magnesium Level 1.4 L Medications Current Medications Famotidine (Pepcid) 20 mg Q12 PO Last administered on 04/13/17 10:15; Admin Dose 20 MG; Start 04/11/17 at 21:00 Enoxaparin Sodium 40 mg 40 mg DAILY SC Last administered on 04/13/17 10:16; Admin Dose 40 MG; Start 04/12/17 at 09:00 Norepinephrine/ Dextrose (Levophed/D5W) 500 ml @ 0 mls/hr TITRATE IV Last administered on 04/12/17 18:34; Admin Dose 18.75 MLS/HR; Start 04/11/17 at 12:30 Aspirin (Aspirin) 325 mg DAILY NGT Last administered on 04/13/17 10:15; Admin Dose 325 MG; Start 04/12/17 at 09:00 Metoprolol Tartrate (Lopressor) 25 mg BID NGT ; Start 04/11/17 at 21:00 Metoprolol Tartrate (Lopressor) 5 mg Q4H PRN IV HR>110 Hold SBP<110; Start at 13:30 Hydrocortisone (Cortef) 10 mg QHS GTB Last administered on 04/12/17 20:38; Admin Dose 10 MG; Start 04/11/17 at 21:00 Hydrocortisone (Cortef) 20 mg DAILY GTB Last administered on 04/13/17 10:16; Admin Dose 20 MG; Start 04/12/17 at 09:00 Lansoprazole (Prevacid) 30 mg DAILY GTB Last administered on 04/13/17 10:15; Admin Dose 30 MG; Start 04/12/17 at 09:00 Insulin Aspart NOVOLOG *MILD* ALGORI... Q4 SC Last administered on 04/12/17 08: 58; Admin Dose 1 UNIT; Start 04/11/17 at 17:00 Phenylephrine HCl/ Dextrose (Chuy-Syneph/D5W) 500 ml @ 0 mls/hr TITRATE IV Last administered on 04/12/17 02:52; Admin Dose 75 MLS/HR; Start 04/11/17 at 16:00 Miscellaneous Information 1 ea NOTE XX ; Start 04/11/17 at 16:30 Glucose (Glutose) 15 gm Q15M PRN PO DECREASED GLUCOSE; Start 04/11/17 at 16:30 Glucose (Glutose) 22.5 gm Q15M PRN PO DECREASED GLUCOSE; Start 04/11/17 at 16: 30 Dextrose (D50w Syringe) 25 ml Q15M PRN IV DECREASED GLUCOSE Last administered on 04/12/17 23:56; Admin Dose 25 ML; Start 04/11/17 at 16:30 Dextrose (D50w Syringe) 50 ml Q15M PRN IV DECREASED GLUCOSE; Start 04/11/17 at 16:30 Glucagon (Glucagen) 1 mg Q15M PRN IM DECREASED GLUCOSE; Start 04/11/17 at 16:30 Glucose (Glutose) 15 gm Q15M PRN BUCCAL DECREASED GLUCOSE; Start 04/11/17 at 16 :30 Hydrocortisone 50 mg 50 mg QID IV Last administered on 04/13/17 10:16; Admin Dose 50 MG; Start 04/11/17 at 23:00 Midazolam HCl 50 ml @ 1 mls/hr TITRATE IV Last administered on 04/13/17 04:30; Admin Dose 2 MLS/HR; Start 04/11/17 at 23:30 Fentanyl (Sublimaze) 100 ml @ 0.5 mls/hr TITRATE IV Last administered on 19:56; Admin Dose 0.5 MLS/HR; Start 04/12/17 at 09:30 Vancomycin HCl 125 mg 125 mg Q6 PO Last administered on 04/13/17 11:57; Admin Dose 125 MG; Start 04/12/17 at 12:00 Vancomycin HCl (Vancocin) 250 ml @ 125 mls/hr Q36H IVPB ; Start 04/14/17 at 01: 00 Metoclopramide HCl 10 mg 10 mg Q6 IV Last administered on 04/13/17 11:57; Admin Dose 10 MG; Start 04/12/17 at 18:00 Dextrose/Sodium Chloride 1,000 ml @ 100 mls/hr Q10H IV Last administered on 11:57; Admin Dose 100 MLS/HR; Start 04/13/17 at 02:00 Azithromycin 500 mg/Sodium Chloride 250 ml @ 250 mls/hr Q24H IVPB ; Start at 12:00 Meropenem (Merrem 1 Gm/100 ml (Pmx)) 100 ml @ 200 mls/hr Q8 IVPB ; Start at 14:00 Assessment/Plan Chief Complaint/Hosp Course 1. acute on chronic hypoxemic respiratory failure: s/p intubation on vent. 2. NSTEMI: due to demand ischemia. 3. CHF: due to diastolic heart failure 4. moderate 5. hx arrhythmia and P afib, frequent PVC. 6. ANEMIA 7. pneumonia 8. sepsis and shock on levophed drip now. cont ASA vent support and abx as per PULM Team. correct lytes prn cont ICU care. betablocker as long as BP is stable but currently on levophed. thyroid supplement . will closely monitor in ICU. currently on levophed. more than 40 minutes of critical care time was spent in management and treatment of this critically ill pt, excluding any procedures. Problems: FRANCISCO BLACKWOOD MD Apr 13, 2017 12:14
--- NOTE | 2017-04-13 13:08 | CONS ---
Date/Time of Note Date/Time of Note DATE: 04/13/17 TIME: 13:02 Assessment/Plan Assessment/Plan Chief Complaint/Hosp Course ID PROGRESS NOTE CURRENT TOTAL ABX DAY #3 +>Vanco IV #2 + Merrem #2 + Azith + Vancomycin 125 mg 4 times daily per nasogastric tube. 24H INTERVAL SUMMARY/HOSPITAL COURSE * No fever today, VSS, micro results (-) 24H preliminary * Sedation off, still on pressors HISTORY OF PRESENT ILLNESS * HPI: . Patient BIB EMS after witnessed emesis associated w/aspiration event, stabilized in ED and started on broad spectrum ABX. 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 Per family in room trach stoma site was healing with less oral secretions draining -- he suspects patient likely had build-up of oral secretions w/increased needs for oral suctioning likely contributing to aspiration event at SNF. Family reports patient was tolerating TF without emesis. Of note, the patient is s/p recent VDRF event after prior aspiration PNA event. Patient now seen in the ICU orally intubated. * ON ADMISSION: (+)Fever @ 102.0, w/Lactic acid rising to 5.1, WBC 13.1 on admission -> 27.9 today, S.CR 1.21, (+)Troponin leak, (+) tachycardia HRA 120' s. DIAGNOSTIC IMAGING ON ADMISSION * CXR IMPRESSION: * 1. Cardiomegaly with asymmetric pulmonary edema and a small to moderate size right pleural effusion suspicious for CHF. Pulmonary infiltrates have worsened as compared to 01/12/2017. The presence of a superimposed pneumonia should be considered in the differential diagnosis. * 2. Endotracheal tube is well-positioned 2.8 cm superior to the sammy. * 3. An NG tube is well positioned distal to the GE junction. * 4. Other findings as described above. * 04/11/17 ABD US IMPRESSION: * 1. Cholelithiasis. There is no gallbladder wall thickening or pericholecystic fluid to suggest acute cholecystitis. * 2. Common bile duct mildly dilated measuring 6.5 mm. Consider MRCP for further evaluation * 04/11/17 CT ABD/PELVIS IMPRESSION: * 1. Bibasilar infiltrates are identified consistent with pneumonia. * 2. Small pericardial effusion. * 3. Sludge and small gallstones in the gallbladder with pericholecystic fluid. Acute cholecystitis is not excluded. Clinical correlation is needed. * 4. A Latif catheter is identified in the urinary bladder. The bladder wall is not visualized due to increased attenuation of a fluid-containing the urinary bladder. Urinalysis is recommended. * 5. Enlarged left adrenal gland measuring up to 3.1 x 2.3 by 1.8 cm with ill- defined borders. An MRI of the adrenal gland with without Gadavist is recommended for further evaluation. An adrenal adenoma or metastasis might present this fashion. * 6. Atherosclerotic vascular disease with a central venous catheter entering the right inguinal canal with its tip in the right femoral vein. * 7. Disk space narrowing with possible central disk herniation at L5-S1 measuring up to apical meters AP which is better evaluated with MRI. #80 anasarca. * 9. Satisfactory positioning of the gastrostomy tube and nasogastric tube. PAST MEDICAL/SURG HX: 1. Tongue cancer-> s/p resection/reconstruction ~10 year ago w/(+)chronic trach= > trach decannulated March 2016 2. s/p recent hypoxic/hypercapnic VDRF w/subsequent weaning & Trach capping February 2017 3. Dysphagia x18 mos w/aspiration syndrome 4. HTN 5. HLD 6. Paroxysmal atrial fibrillation 7. hx of prior NSTEMI in setting sepsis, respiratory failure, demand ischemia 8. CHF due to Diastolic heart failure 9. Hx of Sepsis and leukocytosis. 10. Renal insufficiency. 11. Thyroid disorder. On Synthroid. 12. Elevated glucose - iatrogenic diabetes while on IV steroids 13. iatrogenic adrenal insufficiency, s/p steroid taper PHYSICAL EXAMINATION: GENERAL: 66 yo F, stable on the Vent HEENT: NGT & ETT secure NECK: (+)Trach CHEST: Rise symmetrical w/coarse BS, scattered rales/rhonchi ABDOMEN: Soft, peg EXTREMITIES: Warm, moves extremities ID ASSESSMENT: 66 yo F w/PMHx tongue cancer, chronic trach re-admit [facility] from SNF with: 1. Acute severe sepsis on admission associated with: * Fver 102.0+ 6/30 * Tachycardia HR 120's * Elevated lactic acid 3.1 -> RIsing to 5.1 * Leukocytosis w/WBC 13.1 on admission -> 27.9 today * S.CR 1.21 * (+)Troponin leak 2. Acute respiratory failure 3. HCAP=> Recurrent Aspiration PNA post emesis // Hx of GNR tracheobronchitis * 04/06/17 (+)PSAR = MDRO * 04/06/17 (+)Proteus Mirabilis 4. Acute CHF w/elevated BNP 8000 in setting tachycardia, sepsis, pulmonary edema on CXR 5. Nausea w/emesis ?etiology -> GI on the case * Query: DM Autonomic Gastroparesis ? * GERD ? 6. Cholelithiasis w/dilated CBD 7. Recent (+)C.Diff on 03/07/16 (treated) w/(-)C.Diff 03/20/17 8. Dysphagia sp PEG placement 9. Paroxysmal Afib 10. NSTEMI in setting sepsis, tachycardia, acute hypoxic respiratory failure, acute CHF exacerbation 11. Elevated glucose - iatrogenic diabetes while on IV steroids (-) MRSA Nares screen (04/03/17) INVASIVES: ETT, NGT, FC ABX ALLERGY: Iodine CURRENT ABX: CURRENT TOTAL ABX DAY #3 +>Vanco IV #2 + Merrem #2 + Azith + Vancomycin Liq NGT #2 ID PLAN: * Continue current broad spectrum IV ABX and watch renal fx * Blood, urine, sputum, and C.Diff cultures pending final * Started on empiric Vanco liquid via GT due to rising WBC and hx of recent C.Diff now back on ABX. . Problems: Consultation Date/Type/Reason Admit Date/Time Apr 11, 2017 at 11:28 Initial Consult Date 04/11/17 Type of Consultation: ID Referring Provider: GABBI GOMES MD Exam/Review of Systems Vital Signs Vitals Vital Signs Date Time Temp Pulse Resp B/P Pulse Ox O2 Delivery O2 Flow Rate FiO2 04/13/17 12:00 98.6 118 28 88/56 97 Mechanical Ventilator 04/13/17 11:30 35 04/12/17 08:00 Intake and Output 04/12/17 04/12/17 04/13/17 15:00 23:00 07:00 Intake Total 2142.35 ml 1098.75 ml 708.75 ml Output Total 295 ml 300 ml 210 ml Balance 1847.35 ml 798.75 ml 498.75 ml Results Result Diagram: 04/13/17 0520 04/13/17 0520 Results 24 hrs Laboratory Tests Test 04/12/17 14:22 04/12/17 18:10 04/12/17 18:30 04/12/17 18:52 Lactic Acid Level 3.6 H Bedside Glucose 61 L 137 133 Test 04/12/17 20:37 04/12/17 23:53 04/13/17 00:24 04/13/17 04:33 Bedside Glucose 89 64 L 98 106 Test 04/13/17 05:15 04/13/17 05:20 04/13/17 10:15 Lactic Acid Level 3.0 H White Blood Count 40.2 #H Red Blood Count 2.66 #L Hemoglobin 9.0 #L Hematocrit 29.8 #L Mean Corpuscular Volume 112.0 H Mean Corpuscular Hemoglobin 33.8 H Mean Corpuscular Hemoglobin Concent 30.2 L Red Cell Distribution Width 14.9 H Platelet Count 202 # Mean Platelet Volume 10.7 H Neutrophils % 25.0 L Band Neutrophils % 30.0 H Lymphocytes % 3.0 L Monocytes % 4.0 Eosinophils % Metamyelocytes % 24.0 H Myelocytes % 14.0 H Neutrophils # 10.1 H Lymphocytes # 1.2 Monocytes # 1.6 H Eosinophils # Metamyelocytes # 9.6 Myelocytes # 5.6 Toxic Granulation FEW Platelet Estimate PLT APPEAR ADEQUATE Large Platelets FEW Giant Platelets OCCASIONAL Sodium Level 144 Potassium Level 4.3 Chloride Level 110 Carbon Dioxide Level 20 L Anion Gap 18 H Blood Urea Nitrogen 32 H Creatinine 1.14 H Glucose Level 101 # Calcium Level 7.5 L Phosphorus Level 3.6 Magnesium Level 1.4 L Bedside Glucose 114 Medications Medications Current Medications Famotidine (Pepcid) 20 mg Q12 PO Last administered on 04/13/17 10:15; Admin Dose 20 MG; Start 04/11/17 at 21:00 Enoxaparin Sodium 40 mg 40 mg DAILY SC Last administered on 04/13/17 10:16; Admin Dose 40 MG; Start 04/12/17 at 09:00 Norepinephrine/ Dextrose (Levophed/D5W) 500 ml @ 0 mls/hr TITRATE IV Last administered on 04/12/17 18:34; Admin Dose 18.75 MLS/HR; Start 04/11/17 at 12:30 Aspirin (Aspirin) 325 mg DAILY NGT Last administered on 04/13/17 10:15; Admin Dose 325 MG; Start 04/12/17 at 09:00 Metoprolol Tartrate (Lopressor) 25 mg BID NGT ; Start 04/11/17 at 21:00 Metoprolol Tartrate (Lopressor) 5 mg Q4H PRN IV HR>110 Hold SBP<110; Start at 13:30 Hydrocortisone (Cortef) 10 mg QHS GTB Last administered on 04/12/17 20:38; Admin Dose 10 MG; Start 04/11/17 at 21:00 Hydrocortisone (Cortef) 20 mg DAILY GTB Last administered on 04/13/17 10:16; Admin Dose 20 MG; Start 04/12/17 at 09:00 Lansoprazole (Prevacid) 30 mg DAILY GTB Last administered on 04/13/17 10:15; Admin Dose 30 MG; Start 04/12/17 at 09:00 Insulin Aspart NOVOLOG *MILD* ALGORI... Q4 SC Last administered on 04/12/17 08: 58; Admin Dose 1 UNIT; Start 04/11/17 at 17:00 Phenylephrine HCl/ Dextrose (Chuy-Syneph/D5W) 500 ml @ 0 mls/hr TITRATE IV Last administered on 04/12/17 02:52; Admin Dose 75 MLS/HR; Start 04/11/17 at 16:00 Miscellaneous Information 1 ea NOTE XX ; Start 04/11/17 at 16:30 Glucose (Glutose) 15 gm Q15M PRN PO DECREASED GLUCOSE; Start 04/11/17 at 16:30 Glucose (Glutose) 22.5 gm Q15M PRN PO DECREASED GLUCOSE; Start 04/11/17 at 16: 30 Dextrose (D50w Syringe) 25 ml Q15M PRN IV DECREASED GLUCOSE Last administered on 04/12/17 23:56; Admin Dose 25 ML; Start 04/11/17 at 16:30 Dextrose (D50w Syringe) 50 ml Q15M PRN IV DECREASED GLUCOSE; Start 04/11/17 at 16:30 Glucagon (Glucagen) 1 mg Q15M PRN IM DECREASED GLUCOSE; Start 04/11/17 at 16:30 Glucose (Glutose) 15 gm Q15M PRN BUCCAL DECREASED GLUCOSE; Start 04/11/17 at 16 :30 Hydrocortisone 50 mg 50 mg QID IV Last administered on 04/13/17 10:16; Admin Dose 50 MG; Start 04/11/17 at 23:00 Midazolam HCl 50 ml @ 1 mls/hr TITRATE IV Last administered on 04/13/17 04:30; Admin Dose 2 MLS/HR; Start 04/11/17 at 23:30 Fentanyl (Sublimaze) 100 ml @ 0.5 mls/hr TITRATE IV Last administered on 19:56; Admin Dose 0.5 MLS/HR; Start 04/12/17 at 09:30 Vancomycin HCl 125 mg 125 mg Q6 PO Last administered on 04/13/17 11:57; Admin Dose 125 MG; Start 04/12/17 at 12:00 Vancomycin HCl (Vancocin) 250 ml @ 125 mls/hr Q36H IVPB ; Start 04/14/17 at 01: 00 Metoclopramide HCl 10 mg 10 mg Q6 IV Last administered on 04/13/17 11:57; Admin Dose 10 MG; Start 04/12/17 at 18:00 Dextrose/Sodium Chloride 1,000 ml @ 100 mls/hr Q10H IV Last administered on 11:57; Admin Dose 100 MLS/HR; Start 04/13/17 at 02:00 Azithromycin 500 mg/Sodium Chloride 250 ml @ 250 mls/hr Q24H IVPB ; Start at 12:00 Meropenem (Merrem 1 Gm/100 ml (Pmx)) 100 ml @ 200 mls/hr Q8 IVPB ; Start at 14:00 MARGOT WILLS NP Apr 13, 2017 13:08 MARGOT WILLS NP Apr 13, 2017 13:08
--- NOTE | 2017-04-13 13:29 | RADRPT ---
PROCEDURE: XR Chest 1 View. CLINICAL INDICATION: Shortness of breath. TECHNIQUE: AP view of the chest was obtained. COMPARISON: April 11, 2017 FINDINGS: The heart size is within normal limits. Calcified atherosclerosis is noted in the aorta. Endotrache al and nasogastric tubes are stable and appear in grossly appropriate location. Patchy infiltrates throughout both lungs, right greater than right are stable. Small right pleural effusion is likely present. The lungs are hyperexpanded. Osseous structures are intact. IMPRESSION: Calcified atherosclerosis in the aorta. Stable patchy infiltrates throughout both lungs, right greater than left.. Probable small right pleural effusion. RPTAT: AA .Jason Rizo MD, MD Date Time Electronically viewed and signed by .Jason Rizo MD, on 04/13/2017 13:29 .P/
[2017-04-13] MEDS: AZITHROMYCIN 500 MG in SOD CHLORIDE 0.9% 250 ML IVPB SCH (13:42)
[2017-04-13] MEDS ORDERED: MEROPENEM 2 GM in SOD CHLORIDE 0.9% 100 ML IV SCH (14:00)
[2017-04-13 14:51] LABS: AADO2 Arterial 346.1 mmHg (7.0-24.0); Allen Test ACCEPTAB; Arterial Base Excess -10.3 mmol/L (-3.0-3); Arterial COHb 0.3 % (0.0-3.0); Arterial Fraction of Oxyhgb 98.2 % (93.0-99.0); Arterial HCO3 17.2 mmol/L (22.0-26.0); Arterial MetHb 0.5 % (0.0-1.5); Arterial Total Hemglobin 11.6 g/dl (12.0-18.0); MODE VENT - AC
[2017-04-13] MEDS: MEROPENEM 1 GM/100 ML (PMX) 100 ML IVPB SCH ×2 (15:17→21:47)
[2017-04-13] MEDS ORDERED: AMIODARONE 150MG/D5W BOLUS 100 ML ONE (18:45)
[2017-04-13] MEDS ORDERED: AMIODARONE 150MG/D5W BOLUS 100 ML IV ONE (19:00)
[2017-04-13] MEDS ORDERED: AMIODARONE 900 MG in DEXTROSE 5% 482 ML IV SCH (19:00)
[2017-04-13] MEDS: HYDROCORTISONE 5 MG TAB GTB SCH (21:36)
[2017-04-14] VITALS (76 sets, daily range): BP systolic 60–174; BP diastolic 52–158; PULSE 88–157; RESP 21–33
[2017-04-14] MEDS ORDERED: VANCOMYCIN 1 GM (PMX) 250 ML IVPB SCH
[2017-04-14] MEDS: INSULIN ASPART [NOVOLOG] 3 ML PEN SC SCH ×6 (01:46→23:31)
[2017-04-14] MEDS: VANCOMYCIN 1 GM (PMX) 250 ML IVPB SCH (01:54)
[2017-04-14 04:59] LABS: ABNORMAL IP MESSAGE 1; HEMATOCRIT 28.1 % (37.0-47.0); HEMOGLOBIN 8.7 g/dl (12.0-16.0); MEAN CORPUSCULAR HEMOGLOBIN 34.1 pg (29.0-33.0); MEAN CORPUSCULAR VOLUME 110.2 fl (82.0-101.0); MEAN PLATELET VOLUME 11.4 fl (7.4-10.4); PLATELET COUNT 160 10^3/UL (140-415); RED BLOOD COUNT 2.55 10^6/ul (4.20-5.40); RED CELL DISTRIBUTION WIDTH 15.1 % (11.5-14.5); WHITE BLOOD COUNT 48.8 10^3/ul (4.8-10.8)
[2017-04-14 05:15] LABS: ADD SCAN DIFF NO
[2017-04-14] MEDS: METOCLOPRAMIDE 10 MG INJ IV SCH ×5 (05:22→23:32)
[2017-04-14] MEDS: VANCOMYCIN HCL 250 MG/5ML POSYG PO SCH ×5 (05:22→23:32)
[2017-04-14] MEDS: MEROPENEM 1 GM/100 ML (PMX) 100 ML IVPB SCH ×3 (05:22→21:51)
[2017-04-14] MEDS: LEVOTHYROXINE 75 MCG TAB GTB SCH (06:49)
[2017-04-14] MEDS: DEXTROSE 5% 1,000 ML IV SCH (07:31)
[2017-04-14] MEDS: FUROSEMIDE 20 MG INJ IV SCH ×2 (07:31→17:56)
--- NOTE | 2017-04-14 07:47 | PN ---
Date/Time of Note Date/Time of Note DATE: 04/14/17 TIME: 07:19 Assessment/Plan Lines/Catheters IV Catheter Type (from [facility]): Central Line Mims in Place (from [facility]): Yes Assessment/Plan Chief Complaint/Hosp Course 1. Cholelithiasis without cholecystitis: ischemic bowel Ct abd: sludge and small stones in the gallbladder. No gallbladder wall thickening is noted with some pericholecystic fluid is present. Patient on pressors; NG tube still no output; HIDA not done this weekend patient unable to tolerate lying flat for test -No surgical intervention required at this time -HIDA - will continue to monitor -recommend CT angio 2. Pneumonia: Recurrent; no fevers; intubated; less secretions per ; CXR 04/13: Stable patchy infiltrates throughout both lungs, right greater than left. Probable small right pleural effusion. -Pulmonary toilet -abx 3. Vent dependent respiratory failure: likely 2/2 PNA+ CHF -as above -wean as patient condition permits 4. Septic shock: Off pressors; afebrile overnight -on abx -supportive 5. Uncontrolled Afib: on amiodarone drip -medical optimization -lovenox 6. Elevated troponin:NSTEMI; septic shock/demand ischemia; tachycardic, coming down -trend 7. Leukocytosis with lactic acidosis: 2/2 pneumonia vs. other (urine, blood cultures negative); wbc increasing; lactic acid stable -on abx -judicious fluid management 8. KEYONNA: likely 2/2 septic shock; mims with good output; Cr coming down -judicious fluid management -per nephro 9. CHF: -judicious fluid management -medical optimization 10. Adrenal Insufficiency: was on steroids previously 11. Hypomagnesemia -electrolyte optimization -monitor for cardiac abnormalities 12. Hypothyroidism -cont. synthroid 13. Anemia: chronic vs. dilutional vs. acute bleed -monitor -Transfuse as needed 14. Transaminitis: likely 2/2 septic shock vs. cholecystitis; increasing -trend, monitor 15. Diarrhea: 2/2 abx vs. enteritis?; rectal tube -start probiotics -stool cultures Patient seen and examined in collaboration with Dr. Justus Antonio Problems: Subjective 24 Hr Interval Summary Patient afebrile throughout the night. Off pressors. On amiodarone. Intubated non responsive. tachycardic. No emesis, no OGT output. diarrhea. no sz Exam/Review of Systems Vital Signs Vitals Vital Signs Date Time Temp Pulse Resp B/P Pulse Ox O2 Delivery O2 Flow Rate FiO2 04/14/17 06:45 98.4 140 25 159/100 98 Mechanical Ventilator 04/14/17 05:45 35 04/12/17 08:00 Intake and Output 04/13/17 04/13/17 04/14/17 15:00 23:00 07:00 Intake Total 1405.34 ml 1132.10 ml 1181 ml Output Total 60 ml 455 ml 140 ml Balance 1345.34 ml 677.10 ml 1041 ml Exam Free Text/Dictation Constitutional: other (unresponsive), well developed Head: atraumatic, normocephalic Eyes: PERRL, nl lids, nl sclera ENMT: intubated (ET tube), No mucosa pink and moist (pink and dry) Neck: non-tender, supple Respiratory: clear to auscultation (diminished at bases) Cardiovascular: nl pulses, regular rate and rhythm Gastrointestinal: bowel sounds (hypoactive), non-tender, soft, No distended, No rebound or guarding Genitourinary - Female: nl external genitalia Musculoskeletal: nl extremities to inspection Extremities: normal pulses, No edema Neurological: unresponsive Skin: nl turgor, No rash or lesions Lymph: nl lymph nodes Results Result Diagram: 04/14/17 0430 04/13/17 0520 ADDISON FREGOSO NP Apr 14, 2017 07:46
--- NOTE | 2017-04-14 08:01 | PN ---
Date/Time of Note Date/Time of Note DATE: 04/14/17 TIME: 07:54 Assessment/Plan VTE Prophylaxis VTE Prophylaxis Intervention: other Lines/Catheters IV C[facility] Type (from [facility] Central Line Central line still needed: Yes Urinary Cath still in place: Yes Reason Cath still needed: urinary retention Assessment/Plan Chief Complaint/Hosp Course 1. Nonoliguric aly. With previously normal baseline creatinine. Etiology is likely secondary to septic HPI with possible ATN, hemodynamics. -Continue treatment plan. Supportive care renally dose meds avoid nephrotoxins -Follow-up renal panel - 2. Septic shock. Etiology is likely secondary to aspiration pneumonia, ? cholecystitis -Patient evaluated by general surgery. Appreciate their help with management. No plan for surgery at this time. -Patient clinically improving. Currently off pressors. Patient's blood cultures have been reviewed. Continue current treatment plan Follow-up with infectious disease and critical care for further help in management 3. Ventilator dependent respiratory failure. Etiology secondary to pneumonia, CHF. Vent settings ABG been reviewed. Continue current vent settings follow- up with pulmonary 4. Volume overload. Etiology likely secondary to sepsis capillary leak. Possible diastolic heart failure. -Patient off pressors. Will start Lasix 20 mg IV twice daily 5. Elevated troponin. Possible non-STEMI type II. We will continue to monitor follow-up with cardiology 6. History of adrenal insufficiency. Patient currently on stress steroids, will titrate off as patients off pressor support -Place endocrine consult for Dr. Franco 7. Acute encephalopathy etiologies toxic metabolic, possible anoxic injury. -We will get CT scan of the head and place a neurology evaluation with Dr. Ellis 8. Transaminitis. Etiology possibly multifactorial ischemic hepatitis, acute cholecystitis, sepsis. Monitor serial lft 9. Hypothyroidism continue Synthroid 10. Anemia. Monitor H&H 11. Mineral bone disorder will monitor calcium phosphorus levels 12. h/o tongue cancer with resection 13. History of diastolic heart failure/coronary disease -Continue medical management 14. Leukocytosis. -Worsening -Etiology is likely secondary sepsis, steroids. Other possibilities including C. difficile is a consideration. -wean down stress steroids - Follow-up with infectious disease. 15. Hypomagnesemia. Continue to monitor and replete as needed I spent greater than 40 minutes of critical care time with this pt Problems: Subjective 24 Hr Interval Summary Free Text/Dictation Patient is critically ill but improving. Currently off pressors. Patient with minimal response. Only to painful stimuli. Patient's at bedside. Spoke in detail with him. All questions were answered. Exam/Review of Systems Vital Signs Vitals Vital Signs Date Time Temp Pulse Resp B/P Pulse Ox O2 Delivery O2 Flow Rate FiO2 04/14/17 07:30 35 04/14/17 07:30 128 28 127/90 100 Mechanical Ventilator 04/14/17 06:45 98.4 04/12/17 08:00 Intake and Output 04/13/17 04/13/17 04/14/17 15:00 23:00 07:00 Intake Total 1405.34 ml 1132.10 ml 1197.66 ml Output Total 60 ml 455 ml 140 ml Balance 1345.34 ml 677.10 ml 1057.66 ml Exam intubated and sedated bandage on throat over former trach site tachycardic coarse breath sounds abd rigid, mildly distended PEG site c/d/i femoral line in R groin no rashes no le refugio Results Result Diagram: 04/14/17 0430 04/13/17 0520 Results 24 hrs Laboratory Tests Test 04/13/17 10:15 04/13/17 13:40 04/13/17 17:47 04/13/17 21:42 Bedside Glucose 114 112 128 141 Test 04/14/17 01:42 04/14/17 04:30 04/14/17 05:17 Bedside Glucose 151 117 White Blood Count 48.8 #H Red Blood Count 2.55 L Hemoglobin 8.7 L Hematocrit 28.1 L Mean Corpuscular Volume 110.2 H Mean Corpuscular Hemoglobin 34.1 H Mean Corpuscular Hemoglobin Concent 31.0 L Red Cell Distribution Width 15.1 H Platelet Count 160 # Mean Platelet Volume 11.4 H Neutrophils % Eosinophils % Neutrophils # Eosinophils # Lactic Acid Level 3.0 H Medications Medications Current Medications Famotidine (Pepcid) 20 mg Q12 PO Last administered on 04/13/17 21:37; Admin Dose 20 MG; Start 04/11/17 at 21:00 Enoxaparin Sodium 40 mg 40 mg DAILY SC Last administered on 04/13/17 10:16; Admin Dose 40 MG; Start 04/12/17 at 09:00 Norepinephrine/ Dextrose (Levophed/D5W) 500 ml @ 0 mls/hr TITRATE IV Last administered on 04/12/17 18:34; Admin Dose 18.75 MLS/HR; Start 04/11/17 at 12:30 Aspirin (Aspirin) 325 mg DAILY NGT Last administered on 04/13/17 10:15; Admin Dose 325 MG; Start 04/12/17 at 09:00 Metoprolol Tartrate (Lopressor) 25 mg BID NGT ; Start 04/11/17 at 21:00 Metoprolol Tartrate (Lopressor) 5 mg Q4H PRN IV HR>110 Hold SBP<110; Start at 13:30 Hydrocortisone (Cortef) 10 mg QHS GTB Last administered on 04/13/17 21:36; Admin Dose 10 MG; Start 04/11/17 at 21:00 Hydrocortisone (Cortef) 20 mg DAILY GTB Last administered on 04/13/17 10:16; Admin Dose 20 MG; Start 04/12/17 at 09:00 Lansoprazole (Prevacid) 30 mg DAILY GTB Last administered on 04/13/17 10:15; Admin Dose 30 MG; Start 04/12/17 at 09:00 Insulin Aspart NOVOLOG *MILD* ALGORI... Q4 SC Last administered on 04/14/17 01: 46; Admin Dose 1 UNIT; Start 04/11/17 at 17:00 Phenylephrine HCl/ Dextrose (Chuy-Syneph/D5W) 500 ml @ 0 mls/hr TITRATE IV Last administered on 04/12/17 02:52; Admin Dose 75 MLS/HR; Start 04/11/17 at 16:00 Miscellaneous Information 1 ea NOTE XX ; Start 04/11/17 at 16:30 Glucose (Glutose) 15 gm Q15M PRN PO DECREASED GLUCOSE; Start 04/11/17 at 16:30 Glucose (Glutose) 22.5 gm Q15M PRN PO DECREASED GLUCOSE; Start 04/11/17 at 16: 30 Dextrose (D50w Syringe) 25 ml Q15M PRN IV DECREASED GLUCOSE Last administered on 04/12/17 23:56; Admin Dose 25 ML; Start 04/11/17 at 16:30 Dextrose (D50w Syringe) 50 ml Q15M PRN IV DECREASED GLUCOSE; Start 04/11/17 at 16:30 Glucagon (Glucagen) 1 mg Q15M PRN IM DECREASED GLUCOSE; Start 04/11/17 at 16:30 Glucose 15 gm 15 gm Q15M PRN BUCCAL DECREASED GLUCOSE; Start 04/11/17 at 16:30 Midazolam HCl 50 ml @ 1 mls/hr TITRATE IV Last administered on 04/13/17 04:30; Admin Dose 2 MLS/HR; Start 04/11/17 at 23:30 Fentanyl (Sublimaze) 100 ml @ 0.5 mls/hr TITRATE IV Last administered on 19:56; Admin Dose 0.5 MLS/HR; Start 04/12/17 at 09:30 Vancomycin HCl 125 mg 125 mg Q6 PO Last administered on 04/14/17 05:22; Admin Dose 125 MG; Start 04/12/17 at 12:00 Vancomycin HCl (Vancocin) 250 ml @ 125 mls/hr Q36H IVPB Last administered on 01:54; Admin Dose 125 MLS/HR; Start 04/14/17 at 01:00 Metoclopramide HCl 10 mg 10 mg Q6 IV Last administered on 04/14/17 05:22; Admin Dose 10 MG; Start 04/12/17 at 18:00 Azithromycin 500 mg/Sodium Chloride 250 ml @ 250 mls/hr Q24H IVPB Last administered on 04/13/17 13:42; Admin Dose 250 MLS/HR; Start 04/13/17 at 12:00 Meropenem 100 ml @ 200 mls/hr Q8 IVPB Last administered on 04/14/17 05:22; Admin Dose 200 MLS/HR; Start 04/13/17 at 14:00 Amiodarone HCl/ Dextrose (Cordarone Iv/ D5W) 500 ml @ 0 mls/hr Q0M IV Last administered on 04/13/17 19:37; Admin Dose 33.34 MLS/HR; Start 04/13/17 at 19:00 ; Stop 04/14/17 at 18:59 Hydrocortisone 25 mg 25 mg TID IV ; Start 04/14/17 at 09:00 Dextrose (D5W) 1,000 ml @ 50 mls/hr Q20H IV Last administered on 04/14/17 07: 31; Admin Dose 50 MLS/HR; Start 04/14/17 at 07:30 NINA MACIEL DO Apr 14, 2017 08:01
[2017-04-14] MEDS: ASPIRIN 325 MG TAB NGT SCH (08:13)
[2017-04-14] MEDS: METOPROLOL 25 MG TAB NGT SCH ×2 (08:13→21:01)
[2017-04-14] MEDS: HYDROCORTISONE 100 MG INJ IV SCH ×3 (08:14→20:58)
[2017-04-14] MEDS: ENOXAPARIN 40 MG/0.4 ML SYG SC SCH (08:14)
[2017-04-14] MEDS: LANSOPRAZOLE 30 MG CAP GTB SCH (08:15)
--- NOTE | 2017-04-14 08:31 | RADRPT ---
PROCEDURE: XR Chest 1 View. CLINICAL INDICATION: Shortness of breath. TECHNIQUE: AP view of the chest was obtained. COMPARISON: Yesterday. FINDINGS: The heart size is within normal limits. Calcified atherosclerosis is noted in the aorta. Endotrache al and nasogastric tubes are stable and appear in grossly appropriate location. Patchy infiltrates throughout both lungs continue to be identified. Infiltrates in the right lower lobe have mildly de creased. Significant residual remains. Small right pleural effusion is unchanged. The lungs are hy perexpanded. Osseous structures are unchanged. IMPRESSION: Calcified atherosclerosis in the aorta. Continued patchy infiltrates throughout both lungs. Infiltrates in the right lower lobe appear to h ave mildly decreased. Significant residual remains and is combined with stable small right pleural effusion. Hyperexpanded lungs. RPTAT: AA .Jason Rizo MD, Date Time Electronically viewed and signed by .Jason Rizo MD, on 04/14/2017 08:31 .P/
[2017-04-14 09:34] LABS: AADO2 Arterial 123.4 mmHg (7.0-24.0); Allen Test ACCEPTAB; Arterial Base Excess -6.8 mmol/L (-3.0-3); Arterial COHb 0.3 % (0.0-3.0); Arterial Fraction of Oxyhgb 95.9 % (93.0-99.0); Arterial MetHb 0.3 % (0.0-1.5); MODE VENT - AC
[2017-04-14 09:40] LABS: AADO2 Arterial 90.5 mmHg (7.0-24.0); Allen Test ACCEPTAB; Arterial Base Excess -7.8 mmol/L (-3.0-3); Arterial COHb 0.2 % (0.0-3.0); Arterial Fraction of Oxyhgb 95.6 % (93.0-99.0); Arterial HCO3 17.9 mmol/L (22.0-26.0); Arterial MetHb 0.3 % (0.0-1.5); Arterial Total Hemglobin 10.2 g/dl (12.0-18.0); MODE VENT - AC
--- NOTE | 2017-04-14 09:45 | CONS ---
Date/Time of Note Date/Time of Note DATE: 04/14/17 TIME: 09:43 Consult Date/Type/Reason Admit Date/Time Apr 11, 2017 at 11:28 Initial Consult Date 04/12/17 Type of Consultation: Pulmonary Ordering Provider: GABBI GOMES MD Subjective Patient remains stable on mechanical ventilation mostly somnolent not opening eyes or following commands Objective Vital Signs Date Time Temp Pulse Resp B/P Pulse Ox O2 Delivery O2 Flow Rate FiO2 04/14/17 08:30 146 31 161/118 100 Mechanical Ventilator 04/14/17 07:30 35 04/14/17 06:45 98.4 04/12/17 08:00 Intake and Output 04/13/17 04/13/17 04/14/17 15:00 23:00 07:00 Intake Total 1405.34 ml 1132.10 ml 1197.66 ml Output Total 60 ml 455 ml 140 ml Balance 1345.34 ml 677.10 ml 1057.66 ml Exam PHYSICAL EXAMINATION GENERAL: Elderly lady intubated on mechanical ventilation VITAL SIGNS: see below. HEENT: Pupils equal, round, and reactive to light CARDIAC: S1, S2, 1/6 systolic ejection murmur CHEST: Diminished air entry bilaterally. ABDOMEN: Mildly distended. Bowel sounds present no guarding or rebound EXTREMITIES: No cyanosis, clubbing edema +1 NEUROLOGIC: Generalized weakness Results/Medications Result Diagram: 04/14/17 0430 04/13/17 0520 Results 24 hrs Laboratory Tests Test 04/13/17 10:15 04/13/17 12:40 04/13/17 13:40 04/13/17 17:47 Bedside Glucose 114 112 128 Blood Gas Specimen Source Blood arterial Arterial Blood Date Drawn 04/13/2017 12:33:00 PM Arterial Blood pH (Temp corrected) 7.305 L Arterial Blood pCO2 (Temp correct) 36.7 Arterial Blood pO2 (Temp corrected) 80.3 Arterial Blood HCO3 17.9 L Arterial Blood Base Excess -7.8 L Arterial Blood Oxygen Saturation 96.1 Jonn Test ACCEPTAB Arterial Blood Gas Puncture Site Right Radial Arterial Blood Carboxyhemoglobin 0.2 Arterial Blood Methemoglobin 0.3 Blood Gas A-a O2 Differential 90.5 H Oxyhemoglobin Percent 95.6 Total Hemoglobin 10.2 L Blood Gas Temperature 37.0 Blood Gas Respiration Rate 28.0 Blood Gas Actual Respiration Rate 28 Blood Gas Modality VENT - AC FiO2 30.0 Blood Gas Tidal Volume 450.0 Blood Gas Low PEEP Setting 5.0 Blood Gas Notified Whom KB Blood Gas Notified Time 04/13/2017 12:44:00 PM Test 04/13/17 21:42 04/14/17 01:42 04/14/17 04:30 04/14/17 05:00 Bedside Glucose 141 151 White Blood Count 48.8 #H Red Blood Count 2.55 L Hemoglobin 8.7 L Hematocrit 28.1 L Mean Corpuscular Volume 110.2 H Mean Corpuscular Hemoglobin 34.1 H Mean Corpuscular Hemoglobin Concent 31.0 L Red Cell Distribution Width 15.1 H Platelet Count 160 # Mean Platelet Volume 11.4 H Neutrophils % Eosinophils % Neutrophils # Eosinophils # Lactic Acid Level 3.0 H Blood Gas Specimen Source Blood arterial Arterial Blood Date Drawn 04/14/2017 5:12:00 AM Arterial Blood pH (Temp corrected) 7.344 L Arterial Blood pCO2 (Temp correct) 33.9 L Arterial Blood pO2 (Temp corrected) 86.7 Arterial Blood HCO3 18.0 L Arterial Blood Base Excess -6.8 L Arterial Blood Oxygen Saturation 96.5 Jonn Test ACCEPTAB Arterial Blood Gas Puncture Site Right Radial Arterial Blood Carboxyhemoglobin 0.3 Arterial Blood Methemoglobin 0.3 Blood Gas A-a O2 Differential 123.4 H Oxyhemoglobin Percent 95.9 Total Hemoglobin 11.0 L Blood Gas Temperature 37.0 Blood Gas Respiration Rate 28.0 Blood Gas Actual Respiration Rate 28 Blood Gas Modality VENT - AC FiO2 35.0 Blood Gas Tidal Volume 450.0 Blood Gas Low PEEP Setting 5.0 Blood Gas Notified Whom MA Blood Gas Notified Time 04/14/2017 5:32:00 AM Test 04/14/17 05:17 04/14/17 08:12 Bedside Glucose 117 134 Medications Current Medications Enoxaparin Sodium 40 mg 40 mg DAILY SC Last administered on 04/14/17 08:14; Admin Dose 40 MG; Start 04/12/17 at 09:00 Norepinephrine/ Dextrose (Levophed/D5W) 500 ml @ 0 mls/hr TITRATE IV Last administered on 04/12/17 18:34; Admin Dose 18.75 MLS/HR; Start 04/11/17 at 12:30 Aspirin (Aspirin) 325 mg DAILY NGT Last administered on 04/14/17 08:13; Admin Dose 325 MG; Start 04/12/17 at 09:00 Metoprolol Tartrate (Lopressor) 25 mg BID NGT Last administered on 04/14/17 08: 13; Admin Dose 25 MG; Start 04/11/17 at 21:00 Metoprolol Tartrate (Lopressor) 5 mg Q4H PRN IV HR>110 Hold SBP<110; Start at 13:30 Lansoprazole (Prevacid) 30 mg DAILY GTB Last administered on 04/14/17 08:15; Admin Dose 30 MG; Start 04/12/17 at 09:00 Insulin Aspart NOVOLOG *MILD* ALGORI... Q4 SC Last administered on 04/14/17 01: 46; Admin Dose 1 UNIT; Start 04/11/17 at 17:00 Phenylephrine HCl/ Dextrose (Chuy-Syneph/D5W) 500 ml @ 0 mls/hr TITRATE IV Last administered on 04/12/17 02:52; Admin Dose 75 MLS/HR; Start 04/11/17 at 16:00 Miscellaneous Information 1 ea NOTE XX ; Start 04/11/17 at 16:30 Glucose (Glutose) 15 gm Q15M PRN PO DECREASED GLUCOSE; Start 04/11/17 at 16:30 Glucose (Glutose) 22.5 gm Q15M PRN PO DECREASED GLUCOSE; Start 04/11/17 at 16: 30 Dextrose (D50w Syringe) 25 ml Q15M PRN IV DECREASED GLUCOSE Last administered on 04/12/17 23:56; Admin Dose 25 ML; Start 04/11/17 at 16:30 Dextrose (D50w Syringe) 50 ml Q15M PRN IV DECREASED GLUCOSE; Start 04/11/17 at 16:30 Glucagon (Glucagen) 1 mg Q15M PRN IM DECREASED GLUCOSE; Start 04/11/17 at 16:30 Glucose 15 gm 15 gm Q15M PRN BUCCAL DECREASED GLUCOSE; Start 04/11/17 at 16:30 Midazolam HCl 50 ml @ 1 mls/hr TITRATE IV Last administered on 04/13/17 04:30; Admin Dose 2 MLS/HR; Start 04/11/17 at 23:30 Fentanyl (Sublimaze) 100 ml @ 0.5 mls/hr TITRATE IV Last administered on 19:56; Admin Dose 0.5 MLS/HR; Start 04/12/17 at 09:30 Vancomycin HCl 125 mg 125 mg Q6 PO Last administered on 04/14/17 05:22; Admin Dose 125 MG; Start 04/12/17 at 12:00 Vancomycin HCl (Vancocin) 250 ml @ 125 mls/hr Q36H IVPB Last administered on 01:54; Admin Dose 125 MLS/HR; Start 04/14/17 at 01:00 Metoclopramide HCl 10 mg 10 mg Q6 IV Last administered on 04/14/17 05:22; Admin Dose 10 MG; Start 04/12/17 at 18:00 Azithromycin 500 mg/Sodium Chloride 250 ml @ 250 mls/hr Q24H IVPB Last administered on 04/13/17 13:42; Admin Dose 250 MLS/HR; Start 04/13/17 at 12:00 Meropenem 100 ml @ 200 mls/hr Q8 IVPB Last administered on 04/14/17 05:22; Admin Dose 200 MLS/HR; Start 04/13/17 at 14:00 Amiodarone HCl/ Dextrose (Cordarone Iv/ D5W) 500 ml @ 0 mls/hr Q0M IV Last administered on 04/13/17 19:37; Admin Dose 33.34 MLS/HR; Start 04/13/17 at 19:00 ; Stop 04/14/17 at 18:59 Hydrocortisone 25 mg 25 mg TID IV Last administered on 04/14/17 08:14; Admin Dose 25 MG; Start 04/14/17 at 09:00 Dextrose (D5W) 1,000 ml @ 50 mls/hr Q20H IV Last administered on 04/14/17 07: 31; Admin Dose 50 MLS/HR; Start 04/14/17 at 07:30 Assessment/Plan Chief Complaint/Hosp Course IMP: 1. Septic Shock--likely due to multilobar aspiration pneumonia vs. HCAP 2. Multifocal pneumonia aspiration vs. HCAP 3. Respiratory Failure 4. Lactic Acidosis with severe persistent leukocytosis possible line sepsis 5. Demand Ischemia 6. Gall Stones--no evidence of acute choly RECS: 1. IVF's 2. Follow lactate clearance 3. Change zosyn to meropenem for now to cover ESBL and add azithro 4. Vent--V-AC with rate 28; Vt 450 PEEP 5 5. Sedation with fentanyl and propofol 6. Am labs/CXR 7. DC femoral line placed PICC line Discussed with patient's at bedside. Critical care time 40 minutes. Problems: DARWIN CRAWFORD MD, [facility] Apr 14, 2017 09:45
[2017-04-14 10:30] LABS: LYMPHOCYTES # 1.5 10^3/ul (0.8-2.9)
[2017-04-14 10:38] LABS: CREATININE 1.16 mg/dl (0.44-1.00); MAGNESIUM 1.8 mg/dl (1.7-2.5); POTASSIUM 3.7 mmol/L (3.5-5.1)
[2017-04-14] MEDS ORDERED: LIDOCAINE 1% (MPF) 5 ML VIAL SC ONE (12:00)
[2017-04-14] MEDS: AZITHROMYCIN 500 MG in SOD CHLORIDE 0.9% 250 ML IVPB SCH (12:04)
[2017-04-14 15:01] LABS: MICROALBUMIN 6.9 mg/dL
--- NOTE | 2017-04-14 16:48 | RADRPT ---
PROCEDURE: CT Brain without contrast. CLINICAL INDICATION: Neurologic deficit TECHNIQUE: A CT of the brain was performed on multidetector high-resolution CT scanner utilizing a xial sections from the skull base through the vertex without contrast. One or more of the following dose reduction techniques were used: Automated exposure control, Adjustment of the mA and/or kV acc ording to patient size, and/or use of iterative reconstruction technique. DOSE: CTDI = 43 mGy and the DLP = 872 mGy-cm. COMPARISON: None available FINDINGS: No acute intracranial hemorrhage, significant mass effect or midline shift. Patchy hypoattenuation o f the cerebral white matter is compatible with mild chronic microvascular ischemic changes. Vascular calcifications. Prominence of the cortical sulci and ventricles are related to mild cerebral volum e loss. Opacified nasal cavity and paranasal sinuses with layering fluid. Opacified bilateral midd le ear cavity mastoids. IMPRESSION: No acute intracranial hemorrhage or mass effect. Mild chronic microvascular disease and intracranial atherosclerosis. RPTAT: AA .Curry Davis MD, MD Date Time Electronically viewed and signed by .Curry Davis MD, MD on 04/14/2017 16:48 .T/
--- NOTE | 2017-04-14 16:48 | CONS ---
Date/Time of Note Date/Time of Note DATE: 04/14/17 TIME: 16:42 Assessment/Plan Assessment/Plan Chief Complaint/Hosp Course SUBJECTIVE: No events overnight. No fevers. The patient is intubated, looks comfortable, afebrile INDWELLINGS: Endotracheal tube, PEG, Latif Antimicrobials: Vancomycin, Merrem, Zithromax PHYSICAL EXAMINATION: GENERAL: This is a fragile, elderly woman who is laying comfortably in bed. HEENT: Head atraumatic, normocephalic. Sclerae anicteric. Buccal mucosa dry. NECK: Supple. CHEST: Rise symmetrical. Breath sounds diminished. HEART: S1, S2. ABDOMEN: Soft. Bowel tones present. EXTREMITIES: Without cyanosis. Trace edema present ASSESSMENT: 1. Severe sepsis, status post shock. 2. Acute on chronic respiratory failure, intubated. 3. Healthcare associated pneumonia possibly aspiration status post emesis 4. Gallstones with an evidence of pericholecystic fluid per CT of the abdomen, rule out cholecystitis 5. History of Vancomycin-resistant Enterococcus stool colonization. 6. History of C. difficile colitis 6. History of oral cancer. 7. NSTEMI/moderate PLAN: The patient remains stable off pressors. Continue present care. Vent support per pulmonary, follow recommendations of consultants Discussed with at bedside Discussed with RN Problems: Consultation Date/Type/Reason Admit Date/Time Apr 11, 2017 at 11:28 Initial Consult Date 04/12/17 Type of Consultation: Infectious disease Referring Provider: GABBI GOMES MD Exam/Review of Systems Vital Signs Vitals Vital Signs Date Time Temp Pulse Resp B/P Pulse Ox O2 Delivery O2 Flow Rate FiO2 04/14/17 15:30 104 28 152/107 99 Mechanical Ventilator 04/14/17 11:15 98.8 04/14/17 10:45 35 04/12/17 08:00 Intake and Output 04/13/17 04/13/17 04/14/17 15:00 23:00 07:00 Intake Total 1405.34 ml 1132.10 ml 1197.66 ml Output Total 60 ml 455 ml 140 ml Balance 1345.34 ml 677.10 ml 1057.66 ml Results Result Diagram: 04/14/17 0430 04/14/17 0430 Results 24 hrs Laboratory Tests Test 04/13/17 17:47 04/13/17 21:42 04/14/17 01:42 04/14/17 04:30 Bedside Glucose 128 141 151 White Blood Count 48.8 #H Red Blood Count 2.55 L Hemoglobin 8.7 L Hematocrit 28.1 L Mean Corpuscular Volume 110.2 H Mean Corpuscular Hemoglobin 34.1 H Mean Corpuscular Hemoglobin Concent 31.0 L Red Cell Distribution Width 15.1 H Platelet Count 160 # Mean Platelet Volume 11.4 H Neutrophils % 80.0 H Band Neutrophils % 13.0 H Lymphocytes % 3.0 L Monocytes % 2.0 Eosinophils % Metamyelocytes % 2.0 H Neutrophils # 39.0 H Lymphocytes # 1.5 Monocytes # 1.0 H Eosinophils # Metamyelocytes # 1.0 Sodium Level 143 Potassium Level 3.7 Chloride Level 111 H Carbon Dioxide Level 18 L Anion Gap 18 H Blood Urea Nitrogen 32 H Creatinine 1.16 H Glucose Level 122 Lactic Acid Level 3.0 H Calcium Level 8.0 L Phosphorus Level 3.0 Magnesium Level 1.8 Test 04/14/17 05:00 04/14/17 05:17 04/14/17 08:12 04/14/17 12:27 Blood Gas Specimen Source Blood arterial Arterial Blood Date Drawn 04/14/2017 5:12:00 AM Arterial Blood pH (Temp corrected) 7.344 L Arterial Blood pCO2 (Temp correct) 33.9 L Arterial Blood pO2 (Temp corrected) 86.7 Arterial Blood HCO3 18.0 L Arterial Blood Base Excess -6.8 L Arterial Blood Oxygen Saturation 96.5 Jonn Test ACCEPTAB Arterial Blood Gas Puncture Site Right Radial Arterial Blood Carboxyhemoglobin 0.3 Arterial Blood Methemoglobin 0.3 Blood Gas A-a O2 Differential 123.4 H Oxyhemoglobin Percent 95.9 Total Hemoglobin 11.0 L Blood Gas Temperature 37.0 Blood Gas Respiration Rate 28.0 Blood Gas Actual Respiration Rate 28 Blood Gas Modality VENT - AC FiO2 35.0 Blood Gas Tidal Volume 450.0 Blood Gas Low PEEP Setting 5.0 Blood Gas Notified Whom MA Blood Gas Notified Time 04/14/2017 5:32:00 AM Bedside Glucose 117 134 135 Medications Medications Current Medications Enoxaparin Sodium 40 mg 40 mg DAILY SC Last administered on 04/14/17t 08:14; Admin Dose 40 MG; Start 04/12/17 at 09:00 Norepinephrine/ Dextrose (Levophed/D5W) 500 ml @ 0 mls/hr TITRATE IV Last administered on 04/14/17 10:24; Admin Dose 18.75 MLS/HR; Start 04/11/17 at 12:30 Aspirin (Aspirin) 325 mg DAILY NGT Last administered on 04/14/17 08:13; Admin Dose 325 MG; Start 04/12/17 at 09:00 Metoprolol Tartrate (Lopressor) 25 mg BID NGT Last administered on 04/14/17 08: 13; Admin Dose 25 MG; Start 04/11/17 at 21:00 Metoprolol Tartrate (Lopressor) 5 mg Q4H PRN IV HR>110 Hold SBP<110; Start at 13:30 Lansoprazole (Prevacid) 30 mg DAILY GTB Last administered on 04/14/17 08:15; Admin Dose 30 MG; Start 04/12/17 at 09:00 Insulin Aspart NOVOLOG *MILD* ALGORI... Q4 SC Last administered on 04/14/17 01: 46; Admin Dose 1 UNIT; Start 04/11/17 at 17:00 Phenylephrine HCl/ Dextrose (Chuy-Syneph/D5W) 500 ml @ 0 mls/hr TITRATE IV Last administered on 04/12/17 02:52; Admin Dose 75 MLS/HR; Start 04/11/17 at 16:00 Miscellaneous Information 1 ea NOTE XX ; Start 04/11/17 at 16:30 Glucose (Glutose) 15 gm Q15M PRN PO DECREASED GLUCOSE; Start 04/11/17 at 16:30 Glucose (Glutose) 22.5 gm Q15M PRN PO DECREASED GLUCOSE; Start 04/11/17 at 16: 30 Dextrose (D50w Syringe) 25 ml Q15M PRN IV DECREASED GLUCOSE Last administered on 04/12/17 23:56; Admin Dose 25 ML; Start 04/11/17 at 16:30 Dextrose (D50w Syringe) 50 ml Q15M PRN IV DECREASED GLUCOSE; Start 04/11/17 at 16:30 Glucagon (Glucagen) 1 mg Q15M PRN IM DECREASED GLUCOSE; Start 04/11/17 at 16:30 Glucose 15 gm 15 gm Q15M PRN BUCCAL DECREASED GLUCOSE; Start 04/11/17 at 16:30 Midazolam HCl 50 ml @ 1 mls/hr TITRATE IV Last administered on 04/13/17 04:30; Admin Dose 2 MLS/HR; Start 04/11/17 at 23:30 Fentanyl (Sublimaze) 100 ml @ 0.5 mls/hr TITRATE IV Last administered on 19:56; Admin Dose 0.5 MLS/HR; Start 04/12/17 at 09:30 Vancomycin HCl 125 mg 125 mg Q6 PO Last administered on 04/14/17 11:14; Admin Dose 125 MG; Start 04/12/17 at 12:00 Vancomycin HCl (Vancocin) 250 ml @ 125 mls/hr Q36H IVPB Last administered on 01:54; Admin Dose 125 MLS/HR; Start 04/14/17 at 01:00 Metoclopramide HCl 10 mg 10 mg Q6 IV Last administered on 04/14/17 11:14; Admin Dose 10 MG; Start 04/12/17 at 18:00 Azithromycin 500 mg/Sodium Chloride 250 ml @ 250 mls/hr Q24H IVPB Last administered on 04/14/17 12:04; Admin Dose 250 MLS/HR; Start 04/13/17 at 12:00 Meropenem 100 ml @ 200 mls/hr Q8 IVPB Last administered on 04/14/17 13:43; Admin Dose 200 MLS/HR; Start 04/13/17 at 14:00 Amiodarone HCl/ Dextrose (Cordarone Iv/ D5W) 500 ml @ 0 mls/hr Q0M IV Last administered on 04/13/17 19:37; Admin Dose 33.34 MLS/HR; Start 04/13/17 at 19:00 ; Stop 04/14/17 at 18:59 Hydrocortisone 25 mg 25 mg TID IV Last administered on 04/14/17 12:04; Admin Dose 25 MG; Start 04/14/17 at 09:00 Dextrose (D5W) 1,000 ml @ 50 mls/hr Q20H IV Last administered on 04/14/17 07: 31; Admin Dose 50 MLS/HR; Start 04/14/17 at 07:30 Miscellaneous Information (*Rx Drug Level Order Reminder*) VANCOMYCIN TROUGH 04/15 AT 1200 ONCE ONCE XX ; Start 04/15/17 at 12:00; Stop 04/15/17 at 12:01 LORETO MCKEON NP Apr 14, 2017 16:48
[2017-04-14] MEDS ORDERED: POTASSIUM CHLORIDE 20 MEQ POWDER FOR ORAL SOLN NGT STA (17:28)
[2017-04-14] MEDS ORDERED: MAGNESIUM SULFATE 2 GM/50 ML 50 ML IVPB ONE (17:30)
--- NOTE | 2017-04-14 17:32 | PN ---
Date/Time of Note Date/Time of Note DATE: 04/14/17 TIME: 17:27 Assessment/Plan VTE Prophylaxis VTE Prophylaxis Intervention: LMWH, other Lines/Catheters IV Catheter Type (from Nrsg): Central Line Central line still needed: Yes Urinary Cath still in place: Yes Reason Cath still needed: other (indicate) Assessment/Plan Chief Complaint/Hosp Course 1. acute on chronic hypoxemic respiratory failure: s/p intubation on vent. 2. NSTEMI: due to demand ischemia. 3. CHF: due to diastolic heart failure 4. moderate 5. P afib, frequent PVC. 6. ANEMIA 7. pneumonia 8. s/p sepsis and shock on levophed drip now. cont ASA vent support and abx as per PULM Team. correct lytes prn cont ICU care. betablocker as long as BP is stable but currently off of levophed. thyroid supplement . will closely monitor in ICU. Problems: Subjective 24 Hr Interval Summary Free Text/Dictation D/W staff and rhythm was reviewed. pt with P afib and RVR pt was started on amiodarone .. pt has converted to NSR now. pt remains intubated on vent in ICU. nonverbal d/w . Objective: General: Intubated on vent in ICU HEENT: NC/AT. eyes are closed. . NECK: NO JVD. no stridor. s/p previous trach with dressing covering it. CV: RRR. systolic ejection murmur; no gallop or rubs. PULM: no wheezing or rhonchi. GI: SOFT, NT, ND, no rebound or guarding s/p PEG Extremity: trace B/L LE edema. no clubbing. neuro: sedated Psych: calm rectal: deferred Derm: multiple echymosis Exam/Review of Systems Vital Signs Vitals Vital Signs Date Time Temp Pulse Resp B/P Pulse Ox O2 Delivery O2 Flow Rate FiO2 04/14/17 15:30 104 28 152/107 99 Mechanical Ventilator 04/14/17 11:15 98.8 04/14/17 10:45 35 04/12/17 08:00 Intake and Output 04/13/17 04/13/17 04/14/17 15:00 23:00 07:00 Intake Total 1405.34 ml 1132.10 ml 1197.66 ml Output Total 60 ml 455 ml 140 ml Balance 1345.34 ml 677.10 ml 1057.66 ml Results Result Diagram: 04/14/17 0430 04/14/17 0430 Results 24 hrs Laboratory Tests Test 04/13/17 17:47 04/13/17 21:42 04/14/17 01:42 04/14/17 04:30 Bedside Glucose 128 141 151 White Blood Count 48.8 #H Red Blood Count 2.55 L Hemoglobin 8.7 L Hematocrit 28.1 L Mean Corpuscular Volume 110.2 H Mean Corpuscular Hemoglobin 34.1 H Mean Corpuscular Hemoglobin Concent 31.0 L Red Cell Distribution Width 15.1 H Platelet Count 160 # Mean Platelet Volume 11.4 H Neutrophils % 80.0 H Band Neutrophils % 13.0 H Lymphocytes % 3.0 L Monocytes % 2.0 Eosinophils % Metamyelocytes % 2.0 H Neutrophils # 39.0 H Lymphocytes # 1.5 Monocytes # 1.0 H Eosinophils # Metamyelocytes # 1.0 Sodium Level 143 Potassium Level 3.7 Chloride Level 111 H Carbon Dioxide Level 18 L Anion Gap 18 H Blood Urea Nitrogen 32 H Creatinine 1.16 H Glucose Level 122 Lactic Acid Level 3.0 H Calcium Level 8.0 L Phosphorus Level 3.0 Magnesium Level 1.8 Test 04/14/17 05:00 04/14/17 05:17 04/14/17 08:12 04/14/17 12:27 Blood Gas Specimen Source Blood arterial Arterial Blood Date Drawn 04/14/2017 5:12:00 AM Arterial Blood pH (Temp corrected) 7.344 L Arterial Blood pCO2 (Temp correct) 33.9 L Arterial Blood pO2 (Temp corrected) 86.7 Arterial Blood HCO3 18.0 L Arterial Blood Base Excess -6.8 L Arterial Blood Oxygen Saturation 96.5 Jonn Test ACCEPTAB Arterial Blood Gas Puncture Site Right Radial Arterial Blood Carboxyhemoglobin 0.3 Arterial Blood Methemoglobin 0.3 Blood Gas A-a O2 Differential 123.4 H Oxyhemoglobin Percent 95.9 Total Hemoglobin 11.0 L Blood Gas Temperature 37.0 Blood Gas Respiration Rate 28.0 Blood Gas Actual Respiration Rate 28 Blood Gas Modality VENT - AC FiO2 35.0 Blood Gas Tidal Volume 450.0 Blood Gas Low PEEP Setting 5.0 Blood Gas Notified Whom CA Blood Gas Notified Time 04/14/2017 5:32:00 AM Bedside Glucose 117 134 135 Medications Medications Current Medications Enoxaparin Sodium 40 mg 40 mg DAILY SC Last administered on 04/14/17 08:14; Admin Dose 40 MG; Start 04/12/17 at 09:00 Norepinephrine/ Dextrose (Levophed/D5W) 500 ml @ 0 mls/hr TITRATE IV Last administered on 04/14/17 10:24; Admin Dose 18.75 MLS/HR; Start 04/11/17 at 12:30 Aspirin (Aspirin) 325 mg DAILY NGT Last administered on 04/14/17 08:13; Admin Dose 325 MG; Start 04/12/17 at 09:00 Metoprolol Tartrate (Lopressor) 25 mg BID NGT Last administered on 04/14/17 08: 13; Admin Dose 25 MG; Start 04/11/17 at 21:00 Metoprolol Tartrate (Lopressor) 5 mg Q4H PRN IV HR>110 Hold SBP<110; Start at 13:30 Lansoprazole (Prevacid) 30 mg DAILY GTB Last administered on 04/14/17 08:15; Admin Dose 30 MG; Start 04/12/17 at 09:00 Insulin Aspart NOVOLOG *MILD* ALGORI... Q4 SC Last administered on 04/14/17 01: 46; Admin Dose 1 UNIT; Start 04/11/17 at 17:00 Phenylephrine HCl/ Dextrose (Chuy-Syneph/D5W) 500 ml @ 0 mls/hr TITRATE IV Last administered on 04/12/17 02:52; Admin Dose 75 MLS/HR; Start 04/11/17 at 16:00 Miscellaneous Information 1 ea NOTE XX ; Start 04/11/17 at 16:30 Glucose (Glutose) 15 gm Q15M PRN PO DECREASED GLUCOSE; Start 04/11/17 at 16:30 Glucose (Glutose) 22.5 gm Q15M PRN PO DECREASED GLUCOSE; Start 04/11/17 at 16: 30 Dextrose (D50w Syringe) 25 ml Q15M PRN IV DECREASED GLUCOSE Last administered on 04/12/17 23:56; Admin Dose 25 ML; Start 04/11/17 at 16:30 Dextrose (D50w Syringe) 50 ml Q15M PRN IV DECREASED GLUCOSE; Start 04/11/17 at 16:30 Glucagon (Glucagen) 1 mg Q15M PRN IM DECREASED GLUCOSE; Start 04/11/17 at 16:30 Glucose 15 gm 15 gm Q15M PRN BUCCAL DECREASED GLUCOSE; Start 04/11/17 at 16:30 Midazolam HCl 50 ml @ 1 mls/hr TITRATE IV Last administered on 04/13/17 04:30; Admin Dose 2 MLS/HR; Start 04/11/17 at 23:30 Fentanyl (Sublimaze) 100 ml @ 0.5 mls/hr TITRATE IV Last administered on 19:56; Admin Dose 0.5 MLS/HR; Start 04/12/17 at 09:30 Vancomycin HCl 125 mg 125 mg Q6 PO Last administered on 04/14/17 11:14; Admin Dose 125 MG; Start 04/12/17 at 12:00 Vancomycin HCl (Vancocin) 250 ml @ 125 mls/hr Q36H IVPB Last administered on 01:54; Admin Dose 125 MLS/HR; Start 04/14/17 at 01:00 Metoclopramide HCl 10 mg 10 mg Q6 IV Last administered on 04/14/17 11:14; Admin Dose 10 MG; Start 04/12/17 at 18:00 Azithromycin 500 mg/Sodium Chloride 250 ml @ 250 mls/hr Q24H IVPB Last administered on 04/14/17 12:04; Admin Dose 250 MLS/HR; Start 04/13/17 at 12:00 Meropenem 100 ml @ 200 mls/hr Q8 IVPB Last administered on 04/14/17 13:43; Admin Dose 200 MLS/HR; Start 04/13/17 at 14:00 Amiodarone HCl/ Dextrose (Cordarone Iv/ D5W) 500 ml @ 0 mls/hr Q0M IV Last administered on 04/13/17 19:37; Admin Dose 33.34 MLS/HR; Start 04/13/17 at 19:00 ; Stop 04/14/17 at 18:59 Hydrocortisone 25 mg 25 mg TID IV Last administered on 04/14/17 12:04; Admin Dose 25 MG; Start 04/14/17 at 09:00 Dextrose (D5W) 1,000 ml @ 50 mls/hr Q20H IV Last administered on 04/14/17t 07: 31; Admin Dose 50 MLS/HR; Start 04/14/17 at 07:30 Miscellaneous Information (*Rx Drug Level Order Reminder*) VANCOMYCIN TROUGH 04/15 AT 1200 ONCE ONCE XX ; Start 04/15/17 at 12:00; Stop 04/15/17 at 12:01 FRANCISCO BLACKWOOD MD Apr 14, 2017 17:31
--- NOTE | 2017-04-14 20:17 | CONS ---
Date/Time of Note Date/Time of Note DATE: 04/14/17 TIME: 20:02 Assessment/Plan Assessment/Plan Problems: (1) Steroid dependence Status: Chronic Comment: Pt. in septic shock and w/ h/o steroid dependence. In face of this now steroids being weaned. Was on hydrocortisone 50 mg IV q6. This was reduced to 25 mg IV q8. I believe this was too quick. Will change to 50 mg IV q8. Monitor BP for several days. When stable then will reduce to 25 mg IV q8. Reeval daily. Consultation Date/Type/Reason Admit Date/Time Apr 11, 2017 at 11:28 Date of Consultation: Apr 14, 2017 Type of Consultation: Endocrinology Reason for Consultation Adrenal Insufficiency Referring Provider: NINA MACIEL DO Hx of Present Illness 66 y/o C F w/ h/o CA of tongue, chronic dysphagia w/ aspiration, HTN, hyperlipidemia, A-fib, ARF, recurrent PNA, hypothyroidism, and steroid dependence who was in [facility] until recent d/c from [facility] following tracheal decannulation. Was at local SNF until 4 days ago when she had witnessed emesis leading to new aspiration and recurrent resp. failure. Brought to [facility] where she was reintubated. Pt. also found to have rigid abd, elevated transaminase levels, elevated lactic acid levels, and NSTEMI. Since admit to ICU BP has been low and pt. has been on stress dose steroids. Endo consulted. Subjective hx not possible: pt non-verbal, pt critical status Gastrointestinal: vomiting Past Medical History Medical History: cancer (tongue), high cholesterol, hypertension, hypothyroid, renal disease, other (dysphagia w/ recurrent aspiration pneumonia, atrial fibrillation, steroid dependence) Past Surgical History Past Surgical Hx: other (G tube, prior trach, tongue resection) Family History Significant Family History: cancer (breast in mother), diabetes (brothers) Social History b. 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 [employer], was working until 8 months ago; , no children Alcohol Use: rarely Smoking Status: Never smoker Drug Use: none Exam/Review of Systems Vital Signs Vitals VS - Last 72 Hours, by Label Date Time Temp Pulse Resp B/P Pulse Ox O2 Delivery O2 Flow Rate FiO2 7/3/17 19:39 90 28 100 35 7/3/17 18:00 94 28 87/69 100 Mechanical Ventilator 7/3/17 17:30 92 28 99/68 100 Mechanical Ventilator 7/3/17 17:10 98 28 100 35 7/3/17 17:00 98.0 99 28 113/83 100 Mechanical Ventilator 7/3/17 16:30 110 7/3/17 15:30 104 28 152/107 99 Mechanical Ventilator 7/3/17 15:00 127 28 100 35 7/3/17 15:00 125 28 140/112 98 Mechanical Ventilator 7/3/17 14:30 120 28 114/82 98 Mechanical Ventilator 7/3/17 14:00 125 28 97/74 98 Mechanical Ventilator 7/3/17 13:30 127 29 119/90 98 Mechanical Ventilator 7/3/17 13:25 112 28 100 35 7/3/17 13:15 122 28 114/82 98 Mechanical Ventilator 7/3/17 13:00 126 29 97/71 98 Mechanical Ventilator 7/3/17 12:30 119 28 81/61 99 Mechanical Ventilator 7/3/17 12:15 107 28 110/92 99 Mechanical Ventilator 7/3/17 12:00 121 7/3/17 12:00 123 28 99/80 100 Mechanical Ventilator 7/3/17 11:45 128 28 138/104 100 Mechanical Ventilator 7/3/17 11:30 131 32 133/86 100 Mechanical Ventilator 7/3/17 11:15 98.8 135 33 174/123 97 Mechanical Ventilator 7/3/17 11:00 133 28 155/107 99 Mechanical Ventilator 7/3/17 10:45 125 29 161/112 100 Mechanical Ventilator 7/3/17 10:45 96 28 100 35 7/3/17 10:30 104 28 131/97 98 Mechanical Ventilator 7/3/17 10:15 121 28 104/75 96 Mechanical Ventilator 7/3/17 10:00 108 28 104/83 92 Mechanical Ventilator 7/3/17 09:45 89 28 60/52 97 Mechanical Ventilator 7/3/17 09:15 120 28 92/75 96 Mechanical Ventilator 7/3/17 09:00 116 28 69/54 96 Mechanical Ventilator 7/3/17 08:50 115 28 98 35 7/3/17 08:45 121 28 86/62 100 Mechanical Ventilator 7/3/17 08:30 146 31 161/118 100 Mechanical Ventilator 7/3/17 08:00 143 7/3/17 08:00 143 29 171/158 100 Mechanical Ventilator 7/3/17 07:50 157 28 100 35 7/3/17 07:30 35 7/3/17 07:30 128 28 127/90 100 Mechanical Ventilator 7/3/17 07:15 141 28 85/57 100 Mechanical Ventilator 7/3/17 07:00 139 28 139/109 100 Mechanical Ventilator 7/3/17 06:45 98.4 140 25 159/100 98 Mechanical Ventilator 7/3/17 06:30 135 21 130/94 98 Mechanical Ventilator 7/3/17 06:15 136 28 123/90 97 Mechanical Ventilator 7/3/17 06:00 142 30 131/87 100 Mechanical Ventilator 7/3/17 05:45 136 29 145/132 100 Mechanical Ventilator 7/3/17 05:45 151 29 100 35 7/3/17 05:30 149 28 123/81 100 Mechanical Ventilator 7/3/17 05:15 142 29 149/118 100 Mechanical Ventilator 7/3/17 05:00 131 28 142/123 100 Mechanical Ventilator 7/3/17 04:30 154 28 161/110 100 Mechanical Ventilator 7/3/17 04:15 132 28 105/78 100 Mechanical Ventilator 7/3/17 04:00 98.4 133 28 85/64 100 Mechanical Ventilator 7/3/17 04:00 129 7/3/17 03:45 140 28 113/73 100 Mechanical Ventilator 7/3/17 03:30 151 28 170/109 100 Mechanical Ventilator 7/3/17 03:15 137 28 111/95 100 Mechanical Ventilator 7/3/17 03:10 131 28 100 35 7/3/17 03:00 152 28 115/74 100 Mechanical Ventilator 7/3/17 02:45 140 28 111/70 100 Mechanical Ventilator 7/3/17 02:30 125 28 155/99 100 Mechanical Ventilator 7/3/17 02:15 150 28 123/83 100 Mechanical Ventilator 7/3/17 02:00 157 28 100 Mechanical Ventilator 7/3/17 01:45 149 26 92/74 100 Mechanical Ventilator 7/3/17 01:35 151 28 100 35 7/3/17 01:30 157 26 133/86 99 Mechanical Ventilator 7/3/17 01:15 143 26 95/77 99 Mechanical Ventilator 7/3/17 01:00 144 26 92/71 98 Mechanical Ventilator 7/3/17 00:45 154 26 96/75 97 Mechanical Ventilator 7/3/17 00:15 140 29 110/72 98 Mechanical Ventilator 7/3/17 00:00 98.4 147 28 99/75 100 Mechanical Ventilator 7/3/17 00:00 124 7/2/17 23:40 152 28 100 35 7/2/17 23:30 137 29 107/71 100 Mechanical Ventilator 7/2/17 23:15 151 28 103/77 100 Mechanical Ventilator 7/2/17 23:00 158 26 128/86 100 Mechanical Ventilator 7/2/17 22:45 132 30 92/64 100 Mechanical Ventilator 7/2/17 22:30 157 26 108/80 100 Mechanical Ventilator 7/2/17 22:15 144 23 117/89 100 Mechanical Ventilator 7/2/17 22:00 132 22 98/73 100 Mechanical Ventilator 7/2/17 21:45 138 22 90/62 100 Mechanical Ventilator 7/2/17 21:30 140 22 86/64 100 Mechanical Ventilator 7/2/17 21:24 136 28 100 35 7/2/17 21:15 140 22 85/63 100 Mechanical Ventilator 7/2/17 21:00 142 22 93/75 100 Mechanical Ventilator 7/2/17 20:45 137 22 90/57 99 Mechanical Ventilator 7/2/17 20:30 142 22 106/67 100 Mechanical Ventilator 7/2/17 20:15 122 15 93/63 99 Mechanical Ventilator 7/2/17 20:14 35 7/2/17 20:00 98.4 153 21 104/62 99 Mechanical Ventilator 7/2/17 20:00 145 7/2/17 19:50 157 29 100 35 7/2/17 19:45 170 34 138/105 100 Mechanical Ventilator 7/2/17 19:30 153 16 120/81 100 Mechanical Ventilator 7/2/17 19:15 149 17 113/76 99 Mechanical Ventilator 7/2/17 19:00 145 25 92/60 98 Mechanical Ventilator 7/2/17 18:45 161 28 116/75 97 Mechanical Ventilator 7/2/17 18:30 185 25 101/60 98 Mechanical Ventilator 7/2/17 18:24 182 7/2/17 18:15 131 28 148/83 98 Mechanical Ventilator 7/2/17 18:00 124 28 98 Mechanical Ventilator 7/2/17 17:45 123 12 135/81 99 Mechanical Ventilator 7/2/17 17:30 120 28 98 35 7/2/17 17:30 120 13 109/69 98 Mechanical Ventilator 7/2/17 17:15 122 15 121/77 98 Mechanical Ventilator 7/2/17 17:00 122 28 121/76 98 Mechanical Ventilator 7/2/17 16:45 122 28 128/75 98 Mechanical Ventilator 7/2/17 16:30 120 28 117/73 98 Mechanical Ventilator 7/2/17 16:15 123 28 123/71 98 Mechanical Ventilator 7/2/17 16:00 98.6 123 28 125/73 98 Mechanical Ventilator 7/2/17 16:00 123 7/2/17 15:45 122 28 109/68 98 Mechanical Ventilator 7/2/17 15:30 125 28 99 35 7/2/17 15:30 122 28 109/64 98 Mechanical Ventilator 7/2/17 15:15 126 28 141/79 100 Mechanical Ventilator 7/2/17 15:00 121 28 95/54 97 Mechanical Ventilator 7/2/17 14:45 121 28 102/61 98 Mechanical Ventilator 7/2/17 14:30 120 28 106/59 99 Mechanical Ventilator 7/2/17 14:15 120 28 110/61 98 Mechanical Ventilator 7/2/17 14:00 125 28 130/69 99 Mechanical Ventilator 7/2/17 13:30 120 28 98 35 7/2/17 13:00 118 28 91/51 99 Mechanical Ventilator 7/2/17 12:00 35 7/2/17 12:00 98.6 118 28 88/56 97 Mechanical Ventilator 7/2/17 12:00 118 7/2/17 11:30 125 28 94 35 7/2/17 11:00 126 28 92/56 94 Mechanical Ventilator 7/2/17 10:00 131 21 127/61 100 Mechanical Ventilator 7/2/17 09:30 132 21 100 60 7/2/17 09:00 125 19 113/60 100 Mechanical Ventilator 7/2/17 08:00 60 7/2/17 08:00 122 21 100 60 7/2/17 08:00 123 7/2/17 08:00 98.3 123 18 98/65 100 Mechanical Ventilator 7/2/17 07:00 121 18 97/57 100 Mechanical Ventilator 7/2/17 06:00 121 17 92/59 100 04/13/17 05:30 121 18 96/58 100 04/13/17 05:27 122 22 100 60 04/13/17 05:26 60 04/13/17 05:02 121 21 100 80 04/13/17 05:00 121 20 100 04/13/17 04:30 121 17 92/57 100 04/13/17 04:00 75 04/13/17 04:00 126 19 95/58 100 04/13/17 04:00 98.6 04/13/17 03:45 116 24 100 80 04/13/17 03:30 129 21 126/70 100 04/13/17 03:00 127 22 107/57 100 04/13/17 02:30 126 21 102/54 100 04/13/17 02:00 127 20 114/66 100 Mechanical Ventilator 04/13/17 01:33 118 21 100 80 04/13/17 01:30 125 20 107/62 100 Mechanical Ventilator 04/13/17 01:00 125 20 109/66 100 Mechanical Ventilator 04/13/17 00:30 125 20 101/63 100 Mechanical Ventilator 04/13/17 00:00 122 04/13/17 00:00 124 22 97/56 100 Mechanical Ventilator 04/13/17 00:00 98.0 Mechanical Ventilator 04/12/17 23:47 129 25 99 80 04/12/17 23:30 124 20 90/54 100 Mechanical Ventilator 04/12/17 23:00 125 21 94/58 100 Mechanical Ventilator 04/12/17 22:30 125 21 92/60 100 Mechanical Ventilator 04/12/17 22:00 126 22 106/61 100 Mechanical Ventilator 04/12/17 21:48 125 22 100 04/12/17 21:30 128 22 107/60 100 Mechanical Ventilator 04/12/17 21:00 127 24 89/57 100 Mechanical Ventilator 04/12/17 20:30 131 25 93/56 100 Mechanical Ventilator 04/12/17 20:00 136 26 139/80 100 04/12/17 20:00 98.8 Mechanical Ventilator 04/12/17 20:00 125 04/12/17 19:37 139 33 100 80 04/12/17 18:30 133 26 129/69 100 Mechanical Ventilator 04/12/17 18:15 132 31 115/73 100 Mechanical Ventilator 04/12/17 18:00 130 27 105/60 98 Mechanical Ventilator 04/12/17 17:45 130 28 100 80 04/12/17 17:45 134 32 130/75 100 Mechanical Ventilator 04/12/17 17:30 134 27 137/79 100 Mechanical Ventilator 04/12/17 17:15 127 29 103/72 100 Mechanical Ventilator 04/12/17 17:00 127 26 91/58 100 Mechanical Ventilator 04/12/17 16:45 127 25 95/56 100 Mechanical Ventilator 04/12/17 16:30 128 25 88/57 100 Mechanical Ventilator 04/12/17 16:30 134 04/12/17 16:15 98.3 134 33 120/68 100 Mechanical Ventilator 04/12/17 16:01 133 28 100 80 04/12/17 16:00 134 29 100 Mechanical Ventilator 04/12/17 16:00 80 04/12/17 15:45 133 18 110/61 99 Mechanical Ventilator 04/12/17 15:30 131 27 118/61 98 Mechanical Ventilator 04/12/17 15:15 131 26 115/57 100 Mechanical Ventilator 04/12/17 15:00 125 27 70/50 98 Mechanical Ventilator 04/12/17 14:45 131 32 113/61 98 Mechanical Ventilator 04/12/17 14:30 133 27 108/65 98 Mechanical Ventilator 04/12/17 14:16 131 98 80 04/12/17 14:15 132 28 112/61 98 Mechanical Ventilator 04/12/17 14:00 133 32 124/71 99 Mechanical Ventilator 04/12/17 13:45 131 32 86/56 97 Mechanical Ventilator 04/12/17 13:30 134 29 117/65 98 Mechanical Ventilator 04/12/17 13:15 135 27 124/74 100 Mechanical Ventilator 04/12/17 13:00 129 26 96/62 100 Mechanical Ventilator 04/12/17 12:45 135 26 135/81 100 Mechanical Ventilator 04/12/17 12:30 124 26 90/60 100 Mechanical Ventilator 04/12/17 12:15 128 23 106/66 100 Mechanical Ventilator 04/12/17 12:08 123 04/12/17 12:06 126 26 100 100 04/12/17 12:00 98.9 124 26 78/54 100 Mechanical Ventilator 04/12/17 11:45 125 23 85/58 100 Mechanical Ventilator 04/12/17 11:30 128 26 96/60 100 Mechanical Ventilator 04/12/17 11:15 127 26 92/67 100 Mechanical Ventilator 04/12/17 11:00 125 26 74/57 100 Mechanical Ventilator 04/12/17 10:45 125 26 90/62 100 Mechanical Ventilator 04/12/17 10:30 129 27 102/65 99 Mechanical Ventilator 04/12/17 10:15 129 28 98/60 98 Mechanical Ventilator 04/12/17 10:00 128 29 88/65 100 Mechanical Ventilator 04/12/17 09:45 131 27 109/63 98 Mechanical Ventilator 04/12/17 09:30 131 28 98 98 04/12/17 09:30 125 33 90/75 100 Mechanical Ventilator 04/12/17 09:15 123 27 86/57 100 Mechanical Ventilator 04/12/17 09:00 126 29 130/81 100 Mechanical Ventilator 04/12/17 08:45 121 28 105/77 100 Mechanical Ventilator 04/12/17 08:30 121 27 107/75 99 Mechanical Ventilator 04/12/17 08:15 123 28 118/75 98 Mechanical Ventilator 04/12/17 08:10 122 04/12/17 08:05 117 27 99 100 04/12/17 08:00 97.5 122 27 122/91 98 Mechanical Ventilator 04/12/17 08:00 04/12/17 08:00 100 04/12/17 07:45 120 27 119/82 98 Mechanical Ventilator 04/12/17 07:30 120 28 131/87 100 Mechanical Ventilator 04/12/17 07:15 120 27 120/77 100 Mechanical Ventilator 04/12/17 07:00 116 26 108/75 100 Mechanical Ventilator 04/12/17 06:00 98.4 113 26 100/66 100 Mechanical Ventilator 04/12/17 05:40 113 26 97 100 04/12/17 05:30 115 22 102/64 98 Mechanical Ventilator 04/12/17 05:00 113 22 99/56 97 Mechanical Ventilator 04/12/17 04:30 111 22 106/68 97 04/12/17 04:03 113 04/12/17 04:00 98.2 113 22 108/68 98 Mechanical Ventilator 04/12/17 03:49 112 22 98 100 04/12/17 03:30 112 22 103/65 97 04/12/17 03:00 111 22 100/64 96 Mechanical Ventilator 04/12/17 02:30 110 22 96/58 96 04/12/17 02:00 109 22 93/58 95 Mechanical Ventilator 04/12/17 01:30 111 22 95/62 96 04/12/17 01:10 124 22 95 100 04/12/17 01:00 98.4 111 22 109/69 97 Mechanical Ventilator 04/12/17 00:45 112 22 103/66 98 04/12/17 00:30 114 22 107/72 96 04/12/17 00:15 104 04/12/17 00:15 103 20 58/41 96 04/12/17 00:00 114 18 110/63 98 04/11/17 23:27 117 18 96 100 04/11/17 22:19 132 04/11/17 21:46 125 20 96 100 04/11/17 21:33 126 04/11/17 21:30 98.6 Mechanical Ventilator 04/11/17 21:30 115/50 98 Vital Signs Date Time Temp Pulse Resp B/P Pulse Ox O2 Delivery O2 Flow Rate FiO2 04/14/17 19:39 90 28 100 35 04/14/17 18:00 87/69 Mechanical Ventilator 04/14/17 17:00 98.0 04/12/17 08:00 Intake and Output 04/13/17 04/13/17 04/14/17 15:00 23:00 07:00 Intake Total 1405.34 ml 1132.10 ml 1197.66 ml Output Total 60 ml 455 ml 140 ml Balance 1345.34 ml 677.10 ml 1057.66 ml Exam Constitutional: non-verbal, No alert Eyes: nl conjunctiva, nl sclera ENMT: intubated Respiratory: clear to auscultation, normal air movement Cardiovascular: nl pulses, regular rate and rhythm, No edema, No murmurs/extra sounds, No rub Gastrointestinal: bowel sounds, nl liver, spleen, non-tender, soft, No mass, No rebound or guarding Musculoskeletal: nl extremities to inspection Extremities: normal pulses, No clubbing, No cyanosis, No edema Neurological: unresponsive Additional Comments Bedside Glucose - 72 Hours Test 04/11/17 21:33 04/12/17 01:07 04/12/17 04:26 04/12/17 08:56 Bedside Glucose 130mg/dL (70-220) 173mg/dL (70-220) 184mg/dL (70-220) 169mg/dL (70-220) Test 04/12/17 12:38 04/12/17 18:10 04/12/17 18:30 04/12/17 18:52 Bedside Glucose 108mg/dL (70-220) 61mg/dL (70-220) L 137mg/dL (70-220) 133mg/dL (70-220) Test 04/12/17 20:37 04/12/17 23:53 04/13/17 00:24 04/13/17 04:33 Bedside Glucose 89mg/dL (70-220) 64mg/dL (70-220) L 98mg/dL (70-220) 106mg/dL (70-220) Test 04/13/17 10:15 04/13/17 13:40 04/13/17 17:47 04/13/17 21:42 Bedside Glucose 114mg/dL (70-220) 112mg/dL (70-220) 128mg/dL (70-220) 141mg/dL (70-220) Test 04/14/17 01:42 04/14/17 05:17 04/14/17 08:12 04/14/17 12:27 Bedside Glucose 151mg/dL (70-220) 117mg/dL (70-220) 134mg/dL (70-220) 135mg/dL (70-220) Test 04/14/17 18:01 Bedside Glucose 116mg/dL (70-220) Results Result Diagram: 04/14/17 0430 04/14/17 0430 Results 24 hrs Laboratory Tests Test 04/13/17 21:42 04/14/17 01:42 04/14/17 04:30 04/14/17 05:00 Bedside Glucose 141 151 White Blood Count 48.8 #H Red Blood Count 2.55 L Hemoglobin 8.7 L Hematocrit 28.1 L Mean Corpuscular Volume 110.2 H Mean Corpuscular Hemoglobin 34.1 H Mean Corpuscular Hemoglobin Concent 31.0 L Red Cell Distribution Width 15.1 H Platelet Count 160 # Mean Platelet Volume 11.4 H Neutrophils % 80.0 H Band Neutrophils % 13.0 H Lymphocytes % 3.0 L Monocytes % 2.0 Eosinophils % Metamyelocytes % 2.0 H Neutrophils # 39.0 H Lymphocytes # 1.5 Monocytes # 1.0 H Eosinophils # Metamyelocytes # 1.0 Sodium Level 143 Potassium Level 3.7 Chloride Level 111 H Carbon Dioxide Level 18 L Anion Gap 18 H Blood Urea Nitrogen 32 H Creatinine 1.16 H Glucose Level 122 Lactic Acid Level 3.0 H Calcium Level 8.0 L Phosphorus Level 3.0 Magnesium Level 1.8 Blood Gas Specimen Source Blood arterial Arterial Blood Date Drawn 04/14/2017 5:12:00 AM Arterial Blood pH (Temp corrected) 7.344 L Arterial Blood pCO2 (Temp correct) 33.9 L Arterial Blood pO2 (Temp corrected) 86.7 Arterial Blood HCO3 18.0 L Arterial Blood Base Excess -6.8 L Arterial Blood Oxygen Saturation 96.5 Jonn Test ACCEPTAB Arterial Blood Gas Puncture Site Right Radial Arterial Blood Carboxyhemoglobin 0.3 Arterial Blood Methemoglobin 0.3 Blood Gas A-a O2 Differential 123.4 H Oxyhemoglobin Percent 95.9 Total Hemoglobin 11.0 L Blood Gas Temperature 37.0 Blood Gas Respiration Rate 28.0 Blood Gas Actual Respiration Rate 28 Blood Gas Modality VENT - AC FiO2 35.0 Blood Gas Tidal Volume 450.0 Blood Gas Low PEEP Setting 5.0 Blood Gas Notified Whom MA Blood Gas Notified Time 04/14/2017 5:32:00 AM Test 04/14/17 05:17 04/14/17 08:12 04/14/17 12:27 04/14/17 18:01 Bedside Glucose 117 134 135 116 Medications Medications Current Medications Enoxaparin Sodium 40 mg 40 mg DAILY SC Last administered on 04/14/17 08:14; Admin Dose 40 MG; Start 04/12/17 at 09:00 Norepinephrine/ Dextrose (Levophed/D5W) 500 ml @ 0 mls/hr TITRATE IV Last administered on 04/14/17 10:24; Admin Dose 18.75 MLS/HR; Start 04/11/17 at 12:30 Aspirin (Aspirin) 325 mg DAILY NGT Last administered on 04/14/17 08:13; Admin Dose 325 MG; Start 04/12/17 at 09:00 Metoprolol Tartrate (Lopressor) 25 mg BID NGT Last administered on 04/14/17 08: 13; Admin Dose 25 MG; Start 04/11/17 at 21:00 Metoprolol Tartrate (Lopressor) 5 mg Q4H PRN IV HR>110 Hold SBP<110; Start at 13:30 Lansoprazole 30 mg 30 mg DAILY GTB Last administered on 04/14/17 08:15; Admin Dose 30 MG; Start 04/12/17 at 09:00 Phenylephrine HCl/ Dextrose (Chuy-Syneph/D5W) 500 ml @ 0 mls/hr TITRATE IV Last administered on 04/12/17 02:52; Admin Dose 75 MLS/HR; Start 04/11/17 at 16:00 Miscellaneous Information 1 ea NOTE XX ; Start 04/11/17 at 16:30 Glucose (Glutose) 15 gm Q15M PRN PO DECREASED GLUCOSE; Start 04/11/17 at 16:30 Glucose (Glutose) 22.5 gm Q15M PRN PO DECREASED GLUCOSE; Start 04/11/17 at 16: 30 Dextrose (D50w Syringe) 25 ml Q15M PRN IV DECREASED GLUCOSE Last administered on 04/12/17 23:56; Admin Dose 25 ML; Start 04/11/17 at 16:30 Dextrose (D50w Syringe) 50 ml Q15M PRN IV DECREASED GLUCOSE; Start 04/11/17 at 16:30 Glucagon (Glucagen) 1 mg Q15M PRN IM DECREASED GLUCOSE; Start 04/11/17 at 16:30 Glucose 15 gm 15 gm Q15M PRN BUCCAL DECREASED GLUCOSE; Start 04/11/17 at 16:30 Midazolam HCl 50 ml @ 1 mls/hr TITRATE IV Last administered on 04/13/17 04:30; Admin Dose 2 MLS/HR; Start 04/11/17 at 23:30 Fentanyl (Sublimaze) 100 ml @ 0.5 mls/hr TITRATE IV Last administered on 19:56; Admin Dose 0.5 MLS/HR; Start 04/12/17 at 09:30 Vancomycin HCl 125 mg 125 mg Q6 PO Last administered on 04/14/17 18:01; Admin Dose 125 MG; Start 04/12/17 at 12:00 Vancomycin HCl (Vancocin) 250 ml @ 125 mls/hr Q36H IVPB Last administered on 01:54; Admin Dose 125 MLS/HR; Start 04/14/17 at 01:00 Metoclopramide HCl 10 mg 10 mg Q6 IV Last administered on 04/14/17 11:14; Admin Dose 10 MG; Start 04/12/17 at 18:00 Azithromycin 500 mg/Sodium Chloride 250 ml @ 250 mls/hr Q24H IVPB Last administered on 04/14/17 12:04; Admin Dose 250 MLS/HR; Start 04/13/17 at 12:00 Meropenem 100 ml @ 200 mls/hr Q8 IVPB Last administered on 04/14/17 13:43; Admin Dose 200 MLS/HR; Start 04/13/17 at 14:00 Dextrose (D5W) 1,000 ml @ 50 mls/hr Q20H IV Last administered on 04/14/17 07: 31; Admin Dose 50 MLS/HR; Start 04/14/17 at 07:30 Miscellaneous Information (*Rx Drug Level Order Reminder*) VANCOMYCIN TROUGH 04/15 AT 1200 ONCE ONCE XX ; Start 04/15/17 at 12:00; Stop 04/15/17 at 12:01 Hydrocortisone (Solu-Cortef) 50 mg TID IV ; Start 04/14/17 at 21:00 Insulin Aspart (Novolog Insulin Pen) NOVOLOG *MILD* ALGORI... Q6H SC ; Start 04/15/17 at 00:00 JEAN CISNEROS MD Apr 14, 2017 20:13
--- NOTE | 2017-04-14 20:59 | RADRPT ---
Vent Rate: 122 bpm RR Interval: 0 msec [place] Interval: 132 msec QRS Duration: 78 msec QT Interval: 282 msec QTC Interval: 401 msec P-R-T [place]: 83 - 19 - -10 degrees Sinus tachycardia with fusion complexes Low voltage QRS Nonspecific T wave abnormality Abnormal ECG Electronically Signed By: Marcellus Freire [id number]
[2017-04-15] VITALS (38 sets, daily range): BP systolic 83–180; BP diastolic 58–106; PULSE 87–116; RESP 13–29
[2017-04-15] MEDS: DEXTROSE 5% 1,000 ML IV SCH (03:30)
[2017-04-15 05:00] LABS: ADD SCAN DIFF NO
[2017-04-15 05:17] LABS: ABNORMAL IP MESSAGE 1; HEMATOCRIT 26.1 % (37.0-47.0); HEMOGLOBIN 8.3 g/dl (12.0-16.0); MEAN CORPUSCULAR HEMOGLOBIN 33.6 pg (29.0-33.0); MEAN CORPUSCULAR HGB CONC 31.8 g/dl (32.0-37.0); MEAN CORPUSCULAR VOLUME 105.7 fl (82.0-101.0); MEAN PLATELET VOLUME 11.3 fl (7.4-10.4); PLATELET COUNT 129 10^3/UL (140-415); RED BLOOD COUNT 2.47 10^6/ul (4.20-5.40); RED CELL DISTRIBUTION WIDTH 14.6 % (11.5-14.5); WHITE BLOOD COUNT 42.5 10^3/ul (4.8-10.8)
[2017-04-15] MEDS: VANCOMYCIN HCL 250 MG/5ML POSYG PO SCH ×3 (05:30→17:46)
[2017-04-15] MEDS: METOCLOPRAMIDE 10 MG INJ IV SCH ×3 (05:30→17:46)
[2017-04-15] MEDS: MEROPENEM 1 GM/100 ML (PMX) 100 ML IVPB SCH ×3 (05:31→21:14)
[2017-04-15] MEDS: FUROSEMIDE 20 MG INJ IV SCH (05:31)
[2017-04-15] MEDS: INSULIN ASPART [NOVOLOG] 3 ML PEN SC SCH ×3 (05:37→17:47)
[2017-04-15 06:15] LABS: ALBUMIN 2.3 g/dl (3.3-4.9); ALBUMIN/GLOBULIN RATIO 1.04; BILIRUBIN,INDIRECT 0.1 mg/dl (0-1.1); BILIRUBIN,TOTAL 0.1 mg/dl (0.2-1.3); CALCIUM 8.4 mg/dl (8.4-10.2); CREATININE 1.29 mg/dl (0.44-1.00); MAGNESIUM 2.3 mg/dl (1.7-2.5); POTASSIUM 3.5 mmol/L (3.5-5.1); TOTAL PROTEIN 4.5 g/dl (6.1-8.1)
[2017-04-15] MEDS: LEVOTHYROXINE 75 MCG TAB GTB SCH (06:31)
--- NOTE | 2017-04-15 08:10 | PN ---
Date/Time of Note Date/Time of Note DATE: 04/15/17 TIME: 08:04 Assessment/Plan VTE Prophylaxis VTE Prophylaxis Intervention: other Lines/Catheters IV Catheter Type (from Nrsg): Central Line Central line still needed: Yes Urinary Cath still in place: Yes Reason Cath still needed: other (indicate) Assessment/Plan Chief Complaint/Hosp Course 1. Nonoliguric keyonna. With previously normal baseline creatinine. Etiology is likely secondary to septic KEYONNA with possible ATN -Renal function has been stable, urinary output is marginal but improved -Continue treatment plan. Supportive care renally dose meds avoid nephrotoxins -Follow-up renal panel - 2. Sepsis, status post shock. Etiology is likely secondary to aspiration pneumonia, -Patient currently off pressors. Remains on antibiotics - Patient's blood cultures have been reviewed. Continue current treatment plan Follow-up with infectious disease 3. Ventilator dependent respiratory failure. Etiology secondary to pneumonia, CHF . Vent settings, ABG been reviewed. Continue current vent settings follow-up with pulmonary 4. Volume overload. Etiology likely secondary to sepsis capillary leak. Possible diastolic heart failure. -Continue low-dose Lasix 5. Elevated troponin. Possible non-STEMI type II. We will continue to monitor follow-up with cardiology 6. History of adrenal insufficiency. Patient currently on stress steroids, -Appreciate endocrinology evaluation 7. Acute encephalopathy etiologies toxic metabolic, possible anoxic injury. CT scan showed no acute finding Neurology consult has been placed with Dr. Ellis 8. Transaminitis. Etiology possibly multifactorial ischemic hepatitis, acute cholecystitis, sepsis. Monitor serial lft Appreciate surgery's evaluation. No plan for surgery at this time. Low suspicion for acute cholecystitis 9. Hypothyroidism continue Synthroid 10. Anemia. Monitor H&H 11. Mineral bone disorder will monitor calcium phosphorus levels 12. h/o tongue cancer with resection 13. History of diastolic heart failure/coronary disease -Continue medical management 14. Leukocytosis. -Etiology is likely secondary sepsis, steroids. Other possibilities including C. difficile is a consideration. -Slowly improving as steroids are being weaned down - Follow-up with infectious disease. 15. Hypomagnesemia. Continue to monitor and replete as needed I spent greater than 40 minutes of critical care time with this pt Problems: Subjective 24 Hr Interval Summary Free Text/Dictation Patient remains critical but stable. Minimal neurologic response. Patient had CT scan of the head showed no acute findings. Patient remains off pressor support for 24 hour. Spoke with the patient's yesterday in detail discussing management of care. Plan for neurology evaluation Exam/Review of Systems Vital Signs Vitals Vital Signs Date Time Temp Pulse Resp B/P Pulse Ox O2 Delivery O2 Flow Rate FiO2 04/15/17 07:00 88 28 96/70 100 Mechanical Ventilator 04/15/17 04:00 97.8 04/15/17 03:35 35 04/12/17 08:00 Intake and Output 04/14/17 04/14/17 04/15/17 15:00 23:00 07:00 Intake Total 901.28 ml 560.48 ml 560.5 ml Output Total 270 ml 121 ml 220 ml Balance 631.28 ml 439.48 ml 340.5 ml Exam intubated and sedated bandage on throat over former trach site tachycardic coarse breath sounds abd rigid, mildly distended PEG site c/d/i femoral line in R groin no rashes no le edema Results Result Diagram: 04/15/17 0430 04/15/17 0430 Results 24 hrs Laboratory Tests Test 04/14/17 08:12 04/14/17 12:27 04/14/17 18:01 04/14/17 23:31 Bedside Glucose 134 135 116 100 Test 04/15/17 04:30 04/15/17 05:35 White Blood Count 42.5 H Red Blood Count 2.47 L Hemoglobin 8.3 L Hematocrit 26.1 L Mean Corpuscular Volume 105.7 H Mean Corpuscular Hemoglobin 33.6 H Mean Corpuscular Hemoglobin Concent 31.8 L Red Cell Distribution Width 14.6 H Platelet Count 129 L Mean Platelet Volume 11.3 H Neutrophils % Eosinophils % Neutrophils # Eosinophils # Sodium Level 141 Potassium Level 3.5 Chloride Level 110 Carbon Dioxide Level 19 L Anion Gap 16 Blood Urea Nitrogen 37 H Creatinine 1.29 H Glucose Level 91 Lactic Acid Level 1.7 Calcium Level 8.4 Magnesium Level 2.3 Total Bilirubin 0.1 L Direct Bilirubin 0.00 Indirect Bilirubin 0.1 Aspartate Amino Transf (AST/SGOT) 88 H Alanine Aminotransferase (ALT/SGPT) 292 H Alkaline Phosphatase 197 H Total Protein 4.5 L Albumin 2.3 L Globulin 2.20 Albumin/Globulin Ratio 1.04 Digoxin Level 0.9 L Bedside Glucose 102 Medications Medications Current Medications Enoxaparin Sodium 40 mg 40 mg DAILY SC Last administered on 04/14/17 08:14; Admin Dose 40 MG; Start 04/12/17 at 09:00 Norepinephrine/ Dextrose (Levophed/D5W) 500 ml @ 0 mls/hr TITRATE IV Last administered on 04/14/17 10:24; Admin Dose 18.75 MLS/HR; Start 04/11/17 at 12:30 Aspirin (Aspirin) 325 mg DAILY NGT Last administered on 04/14/17 08:13; Admin Dose 325 MG; Start 04/12/17 at 09:00 Metoprolol Tartrate (Lopressor) 25 mg BID NGT Last administered on 04/14/17 21: 01; Admin Dose 25 MG; Start 04/11/17 at 21:00 Metoprolol Tartrate (Lopressor) 5 mg Q4H PRN IV HR>110 Hold SBP<110; Start at 13:30 Lansoprazole 30 mg 30 mg DAILY GTB Last administered on 04/14/17 08:15; Admin Dose 30 MG; Start 04/12/17 at 09:00 Phenylephrine HCl/ Dextrose (Chuy-Syneph/D5W) 500 ml @ 0 mls/hr TITRATE IV Last administered on 04/12/17 02:52; Admin Dose 75 MLS/HR; Start 04/11/17 at 16:00 Miscellaneous Information 1 ea NOTE XX ; Start 04/11/17 at 16:30 Glucose (Glutose) 15 gm Q15M PRN PO DECREASED GLUCOSE; Start 04/11/17 at 16:30 Glucose (Glutose) 22.5 gm Q15M PRN PO DECREASED GLUCOSE; Start 04/11/17 at 16: 30 Dextrose (D50w Syringe) 25 ml Q15M PRN IV DECREASED GLUCOSE Last administered on 04/12/17 23:56; Admin Dose 25 ML; Start 04/11/17 at 16:30 Dextrose (D50w Syringe) 50 ml Q15M PRN IV DECREASED GLUCOSE; Start 04/11/17 at 16:30 Glucagon (Glucagen) 1 mg Q15M PRN IM DECREASED GLUCOSE; Start 04/11/17 at 16:30 Glucose 15 gm 15 gm Q15M PRN BUCCAL DECREASED GLUCOSE; Start 04/11/17 at 16:30 Midazolam HCl 50 ml @ 1 mls/hr TITRATE IV Last administered on 04/13/17 04:30; Admin Dose 2 MLS/HR; Start 04/11/17 at 23:30 Fentanyl (Sublimaze) 100 ml @ 0.5 mls/hr TITRATE IV Last administered on 19:56; Admin Dose 0.5 MLS/HR; Start 04/12/17 at 09:30 Vancomycin HCl 125 mg 125 mg Q6 PO Last administered on 04/15/17 05:30; Admin Dose 125 MG; Start 04/12/17 at 12:00 Vancomycin HCl (Vancocin) 250 ml @ 125 mls/hr Q36H IVPB Last administered on 01:54; Admin Dose 125 MLS/HR; Start 04/14/17 at 01:00 Metoclopramide HCl 10 mg 10 mg Q6 IV Last administered on 04/15/17 05:30; Admin Dose 10 MG; Start 04/12/17 at 18:00 Azithromycin 500 mg/Sodium Chloride 250 ml @ 250 mls/hr Q24H IVPB Last administered on 04/14/17 12:04; Admin Dose 250 MLS/HR; Start 04/13/17 at 12:00 Meropenem 100 ml @ 200 mls/hr Q8 IVPB Last administered on 04/15/17 05:31; Admin Dose 200 MLS/HR; Start 04/13/17 at 14:00 Dextrose (D5W) 1,000 ml @ 50 mls/hr Q20H IV Last administered on 04/15/17 03: 30; Admin Dose 50 MLS/HR; Start 04/14/17 at 07:30 Miscellaneous Information (*Rx Drug Level Order Reminder*) VANCOMYCIN TROUGH 04/15 AT 1200 ONCE ONCE XX ; Start 04/15/17 at 12:00; Stop 04/15/17 at 12:01 Hydrocortisone (Solu-Cortef) 50 mg TID IV Last administered on 04/14/17 20:58; Admin Dose 50 MG; Start 04/14/17 at 21:00 Insulin Aspart (Novolog Insulin Pen) NOVOLOG *MILD* ALGORI... Q6H SC ; Start 04/15/17 at 00:00 NINA MACIEL DO Apr 15, 2017 08:09
--- NOTE | 2017-04-15 08:30 | PN ---
Date/Time of Note Date/Time of Note DATE: 04/15/17 TIME: 08:04 Assessment/Plan Lines/Catheters IV Catheter Type (from [facility]): Central Line Mims in Place (from [facility]): Yes Assessment/Plan Chief Complaint/Hosp Course 1. Cholelithiasis without cholecystitis: ischemic bowel Ct abd: sludge and small stones in the gallbladder. No gallbladder wall thickening is noted with some pericholecystic fluid is present. Patient on pressors; OGT no output; HIDA done yesterday; results pending; tolerating tube feedings -No surgical intervention required at this time - will continue to monitor -recommend CT angio 2. Pneumonia: Recurrent; no fevers; intubated; less secretions per ; CXR 04/14: Continued patchy infiltrates throughout both lungs. Infiltrates in the right lower lobe appear to have mildly decreased. Stable small right pleural effusion. -Pulmonary toilet -abx 3. Vent dependent respiratory failure: likely 2/2 PNA+ CHF -as above -wean as patient condition permits 4. Septic shock: Off pressors; afebrile overnight; cultures negative -on abx -supportive 5. Uncontrolled Afib: on amiodarone drip -medical optimization -lovenox 6. Elevated troponin:NSTEMI; septic shock/demand ischemia; tachycardic, coming down -trend 7. Leukocytosis with lactic acidosis: 2/2 pneumonia vs. steroids vs. other ( urine, blood cultures negative); wbc improved; lactic acid stable -on abx -judicious fluid management -steroid taper 8. KEYONNA: likely 2/2 septic shock; mims with good output; Cr coming down -judicious fluid management -per nephro 9. CHF: -judicious fluid management -medical optimization 10. Adrenal Insufficiency: was on steroids previously 11. Hypomagnesemia -electrolyte optimization -monitor for cardiac abnormalities 12. Hypothyroidism -cont. synthroid 13. Anemia: chronic vs. dilutional vs. acute bleed; stable -monitor -Transfuse as needed 14. Transaminitis: likely 2/2 septic shock vs. cholecystitis; increasing -trend, monitor 15. Diarrhea: 2/2 abx vs. enteritis?; rectal tube -start probiotics -stool cultures 16. Thrombocytosis: 2/2 inflammatory vs. drug induced vs. other -monitor -bleeding precautions -supportive 17. Encephalopathy: 2/2 toxic metabolic vs. anoxic injury; CT: No acute intracranial hemorrhage or mass effect. Mild chronic microvascular disease and intracranial atherosclerosis. -supportive Patient seen and examined in collaboration with Dr. Justus Antonio Problems: Subjective 24 Hr Interval Summary Patient afebrile throughout the night. Tolerated tube feedings without n/v/d. Off pressors, BP stable. Intubated, non-responsive. Decreased oral secretions. No sz Exam/Review of Systems Vital Signs Vitals Vital Signs Date Time Temp Pulse Resp B/P Pulse Ox O2 Delivery O2 Flow Rate FiO2 04/15/17 07:00 88 28 96/70 100 Mechanical Ventilator 04/15/17 04:00 97.8 04/15/17 03:35 35 04/12/17 08:00 Intake and Output 04/14/17 04/14/17 04/15/17 15:00 23:00 07:00 Intake Total 901.28 ml 560.48 ml 560.5 ml Output Total 270 ml 121 ml 220 ml Balance 631.28 ml 439.48 ml 340.5 ml Exam Free Text/Dictation Constitutional: other (unresponsive), well developed Head: atraumatic, normocephalic Eyes: PERRL, nl lids, nl sclera ENMT: intubated (ET tube), No mucosa pink and moist (pink and dry) Neck: non-tender, supple Respiratory: clear to auscultation (diminished at bases) Cardiovascular: nl pulses, regular rate and rhythm Gastrointestinal: bowel sounds (hypoactive), non-tender, soft, GT tubes site no erythema, no drainage No distended, No rebound or guarding Genitourinary - Female: nl external genitalia Musculoskeletal: nl extremities to inspection Extremities: normal pulses, No edema Neurological: unresponsive Skin: nl turgor, No rash or lesions Lymph: nl lymph nodes Results Result Diagram: 04/15/1742904/15/17429 ADDISON FREGOSO NP Apr 15, 2017 08:26
--- NOTE | 2017-04-15 09:15 | RADRPT ---
PROCEDURE: XR Chest. CLINICAL INDICATION: Pneumonia TECHNIQUE: Single frontal chest x-ray. COMPARISON: 04/14/2017 FINDINGS: Endotracheal and nasogastric tubes remain in place. Patchy bilateral pulmonary opacities are again noted, grossly unchanged. There is no pneumothorax. Cardiomediastinal silhouette is stable in appe arance. Aortic atherosclerotic calcification is noted. The osseous structures are unremarkable. IMPRESSION: 1. Lines and tubes remain in place. 2. Grossly stable patchy bilateral pulmonary opacities. 3. No significant interval change. RPTAT: HDWR .Hubert Munson MD, Date Time Electronically viewed and signed by .Hubert Munson MD, on 04/15/2017 09:15 .R/
[2017-04-15] MEDS: ASPIRIN 325 MG TAB NGT SCH (09:26)
[2017-04-15] MEDS: LANSOPRAZOLE 30 MG CAP GTB SCH (09:26)
[2017-04-15] MEDS: HYDROCORTISONE 100 MG INJ IV SCH ×3 (09:26→21:14)
[2017-04-15 09:28] LABS: ANISOCYTOSIS 1+; LYMPHOCYTES # 0.4 10^3/ul (0.8-2.9); MONOCYTE # 1.7 10^3/ul (0.3-0.9); NEUTROPHIL # 38.3 10^3/ul (1.6-7.5)
[2017-04-15 09:29] LABS: PLATELET ESTIMATE PLT APPEAR DECREASED
[2017-04-15] MEDS: ENOXAPARIN 40 MG/0.4 ML SYG SC SCH (09:30)
--- NOTE | 2017-04-15 10:31 | CONS ---
Date/Time of Note Date/Time of Note DATE: 04/15/17 TIME: 10:29 Consult Date/Type/Reason Admit Date/Time Apr 11, 2017 at 11:28 Initial Consult Date 04/12/17 Type of Consultation: Pulmonary ICU Ordering Provider: NINA MACIEL DO Subjective Remains somnolent on mechanical ventilation Continues low-dose fentanyl Unable to assess neurological status Started on low-dose tube feeding Objective Vital Signs Date Time Temp Pulse Resp B/P Pulse Ox O2 Delivery O2 Flow Rate FiO2 04/15/17 08:00 105 04/15/17 07:00 28 96/70 100 Mechanical Ventilator 04/15/17 04:00 97.8 04/15/17 03:35 35 04/12/17 08:00 Intake and Output 04/14/17 04/14/17 04/15/17 15:00 23:00 07:00 Intake Total 901.28 ml 560.48 ml 560.5 ml Output Total 270 ml 121 ml 220 ml Balance 631.28 ml 439.48 ml 340.5 ml Exam PHYSICAL EXAMINATION GENERAL: Elderly lady intubated on mechanical ventilation VITAL SIGNS: see below. HEENT: Pupils equal, round, and reactive to light CARDIAC: S1, S2, 1/6 systolic ejection murmur CHEST: Diminished air entry bilaterally. ABDOMEN: Mildly distended. Bowel sounds present no guarding or rebound EXTREMITIES: No cyanosis, clubbing edema +1 NEUROLOGIC: Generalized weakness Results/Medications Result Diagram: 04/15/17 0430 04/15/17 0430 Results 24 hrs Laboratory Tests Test 04/14/17 12:27 04/14/17 18:01 04/14/17 23:31 04/15/17 04:30 Bedside Glucose 135 116 100 White Blood Count 42.5 H Red Blood Count 2.47 L Hemoglobin 8.3 L Hematocrit 26.1 L Mean Corpuscular Volume 105.7 H Mean Corpuscular Hemoglobin 33.6 H Mean Corpuscular Hemoglobin Concent 31.8 L Red Cell Distribution Width 14.6 H Platelet Count 129 L Mean Platelet Volume 11.3 H Neutrophils % 90.0 H Band Neutrophils % 4.0 Lymphocytes % 1.0 L Monocytes % 4.0 Eosinophils % Metamyelocytes % 1.0 H Neutrophils # 38.3 H Lymphocytes # 0.4 L Monocytes # 1.7 H Eosinophils # Metamyelocytes # 0.4 Platelet Estimate PLT APPEAR DECREASED Anisocytosis 1+ Sodium Level 141 Potassium Level 3.5 Chloride Level 110 Carbon Dioxide Level 19 L Anion Gap 16 Blood Urea Nitrogen 37 H Creatinine 1.29 H Glucose Level 91 Lactic Acid Level 1.7 Calcium Level 8.4 Magnesium Level 2.3 Total Bilirubin 0.1 L Direct Bilirubin 0.00 Indirect Bilirubin 0.1 Aspartate Amino Transf (AST/SGOT) 88 H Alanine Aminotransferase (ALT/SGPT) 292 H Alkaline Phosphatase 197 H Total Protein 4.5 L Albumin 2.3 L Globulin 2.20 Albumin/Globulin Ratio 1.04 Digoxin Level 0.9 L Test 04/15/17 05:35 Bedside Glucose 102 Medications Current Medications Enoxaparin Sodium 40 mg 40 mg DAILY SC Last administered on 04/15/17 09:30; Admin Dose 40 MG; Start 04/12/17 at 09:00 Norepinephrine/ Dextrose (Levophed/D5W) 500 ml @ 0 mls/hr TITRATE IV Last administered on 04/14/17 10:24; Admin Dose 18.75 MLS/HR; Start 04/11/17 at 12:30 Aspirin (Aspirin) 325 mg DAILY NGT Last administered on 04/15/17 09:26; Admin Dose 325 MG; Start 04/12/17 at 09:00 Metoprolol Tartrate (Lopressor) 25 mg BID NGT Last administered on 04/14/17 21: 01; Admin Dose 25 MG; Start 04/11/17 at 21:00 Metoprolol Tartrate (Lopressor) 5 mg Q4H PRN IV HR>110 Hold SBP<110; Start at 13:30 Lansoprazole 30 mg 30 mg DAILY GTB Last administered on 04/15/17 09:26; Admin Dose 30 MG; Start 04/12/17 at 09:00 Phenylephrine HCl/ Dextrose (Chuy-Syneph/D5W) 500 ml @ 0 mls/hr TITRATE IV Last administered on 04/12/17 02:52; Admin Dose 75 MLS/HR; Start 04/11/17 at 16:00 Miscellaneous Information 1 ea NOTE XX ; Start 04/11/17 at 16:30 Glucose (Glutose) 15 gm Q15M PRN PO DECREASED GLUCOSE; Start 04/11/17 at 16:30 Glucose (Glutose) 22.5 gm Q15M PRN PO DECREASED GLUCOSE; Start 04/11/17 at 16: 30 Dextrose (D50w Syringe) 25 ml Q15M PRN IV DECREASED GLUCOSE Last administered on 04/12/17 23:56; Admin Dose 25 ML; Start 04/11/17 at 16:30 Dextrose (D50w Syringe) 50 ml Q15M PRN IV DECREASED GLUCOSE; Start 04/11/17 at 16:30 Glucagon (Glucagen) 1 mg Q15M PRN IM DECREASED GLUCOSE; Start 04/11/17 at 16:30 Glucose 15 gm 15 gm Q15M PRN BUCCAL DECREASED GLUCOSE; Start 04/11/17 at 16:30 Midazolam HCl 50 ml @ 1 mls/hr TITRATE IV Last administered on 04/13/17 04:30; Admin Dose 2 MLS/HR; Start 04/11/17 at 23:30 Fentanyl (Sublimaze) 100 ml @ 0.5 mls/hr TITRATE IV Last administered on 19:56; Admin Dose 0.5 MLS/HR; Start 04/12/17 at 09:30 Vancomycin HCl 125 mg 125 mg Q6 PO Last administered on 04/15/17 05:30; Admin Dose 125 MG; Start 04/12/17 at 12:00 Vancomycin HCl (Vancocin) 250 ml @ 125 mls/hr Q36H IVPB Last administered on 01:54; Admin Dose 125 MLS/HR; Start 04/14/17 at 01:00 Metoclopramide HCl 10 mg 10 mg Q6 IV Last administered on 04/15/17 05:30; Admin Dose 10 MG; Start 04/12/17 at 18:00 Azithromycin 500 mg/Sodium Chloride 250 ml @ 250 mls/hr Q24H IVPB Last administered on 04/14/17 12:04; Admin Dose 250 MLS/HR; Start 04/13/17 at 12:00 Meropenem (Merrem 1 Gm/100 ml (Pmx)) 100 ml @ 200 mls/hr Q8 IVPB Last administered on 04/15/17 05:31; Admin Dose 200 MLS/HR; Start 04/13/17 at 14:00 Miscellaneous Information (*Rx Drug Level Order Reminder*) VANCOMYCIN TROUGH 04/15 AT 1200 ONCE ONCE XX ; Start 04/15/17 at 12:00; Stop 04/15/17 at 12:01 Hydrocortisone (Solu-Cortef) 50 mg TID IV Last administered on 04/15/17t 09:26; Admin Dose 50 MG; Start 04/14/17 at 21:00 Insulin Aspart (Novolog Insulin Pen) NOVOLOG *MILD* ALGORI... Q6H SC ; Start 04/15/17 at 00:00 Furosemide (Lasix) 20 mg DAILY IV ; Start 04/16/17 at 09:00 Assessment/Plan Chief Complaint/Hosp Course IMP: 1. Septic Shock--likely due to multilobar aspiration pneumonia vs. HCAP 2. Multifocal pneumonia aspiration vs. HCAP 3. Respiratory Failure 4. Status post lactic acidosis. Persistent leukocytosis. 5. Demand Ischemia 6. Gall Stones--no evidence of acute choly 7. Encephalopathy unclear etiology. CT head unremarkable. RECS: 1. IVF's 2. Follow lactate clearance 3. Continue antibiotics per primary team and infectious diseases 4. Vent--V-AC with rate 28; Vt 450 PEEP 5 5. Decrease sedation as tolerated 6. Advance tube feeding 7. Neurology evaluation possible MRI. Discussed with patient's at bedside. Critical care time 40 minutes. Overall prognosis is guarded at the patient's neurological status does not improve we will have to have a discussion about goals of care need for tracheostomy and G-tube placement. Problems: DARWIN CRAWFORD MD, [facility] Apr 15, 2017 10:31
[2017-04-15] MEDS: METOPROLOL 25 MG TAB NGT SCH ×2 (10:40→21:56)
[2017-04-15 10:54] LABS: AADO2 Arterial 110.8 mmHg (7.0-24.0); Allen Test ACCEPTAB; Arterial Base Excess -5.3 mmol/L (-3.0-3); Arterial COHb 0.3 % (0.0-3.0); Arterial Fraction of Oxyhgb 97.1 % (93.0-99.0); Arterial HCO3 18.4 mmol/L (22.0-26.0); Arterial MetHb 0.3 % (0.0-1.5); Arterial Total Hemglobin 10.3 g/dl (12.0-18.0); MODE VENT - AC
--- NOTE | 2017-04-15 11:03 | CONS ---
Date/Time of Note Date/Time of Note DATE: 04/15/17 TIME: 10:49 Assessment/Plan Assessment/Plan Chief Complaint/Hosp Course PHYSICAL EXAMINATION: GENERAL: Not in acute distress, lying in bed. HEENT: Normocephalic, atraumatic head. NECK: No carotid bruits. No thyromegaly. LUNGS: Clear to auscultation bilaterally, intubated orally. ABDOMEN: Soft. EXTREMITIES: No cyanosis, clubbing, 1+edema. NEUROLOGIC: She is lethargic. taken off fentanyl. Opens eyes to voice, looks to voice. Does not follow commands, goes back to sleep. Equivocal response to visual threat. Pupils 3-2 mm Extraocular movements intact. Corneal reflexes are present as well as gag. No withdrawal of flaccid extremities to pain. Deep tendon reflexes 1+ upper extremities, absent lower extremities. No definite response to plantar stimulation. IMPRESSION: Encephalopathy, likely toxic metabolic type. Pt is on Fentanyl, when taken off developed tachycardia. Avoid or taper sedation when possible. EEG tomorrow. D/ w pt's . . 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 Current problems sepsis, resp failure, remains intubated, sedated, ARF. Neuro called for evaluation of encephalopathy Gastrointestinal: vomiting Past Medical History Medical History: cancer (tongue), high cholesterol, hypertension, hypothyroid, renal disease, other (dysphagia w/ recurrent aspiration pneumonia, atrial fibrillation, steroid dependence) Past Surgical History Past Surgical Hx: other (G tube, prior trach, tongue resection) Family History Significant Family History: no pertinent family hx Social History Alcohol Use: none Smoking Status: Never smoker Drug Use: none Exam/Review of Systems Vital Signs Vitals Vital Signs Date Time Temp Pulse Resp B/P Pulse Ox O2 Delivery O2 Flow Rate FiO2 04/15/17 08:00 105 04/15/17 07:00 28 96/70 100 Mechanical Ventilator 04/15/17 04:00 97.8 04/15/17 03:35 35 04/12/17 08:00 Intake and Output 7/3/17 7/3/17 7/4/17 15:00 23:00 07:00 Intake Total 901.28 ml 560.48 ml 560.5 ml Output Total 270 ml 121 ml 220 ml Balance 631.28 ml 439.48 ml 340.5 ml Results Result Diagram: 04/15/17 0430 04/15/17 0430 Results 24 hrs Laboratory Tests Test 04/14/17 12:27 04/14/17 18:01 04/14/17 23:31 04/15/17 04:30 Bedside Glucose 135 116 100 White Blood Count 42.5 H Red Blood Count 2.47 L Hemoglobin 8.3 L Hematocrit 26.1 L Mean Corpuscular Volume 105.7 H Mean Corpuscular Hemoglobin 33.6 H Mean Corpuscular Hemoglobin Concent 31.8 L Red Cell Distribution Width 14.6 H Platelet Count 129 L Mean Platelet Volume 11.3 H Neutrophils % 90.0 H Band Neutrophils % 4.0 Lymphocytes % 1.0 L Monocytes % 4.0 Eosinophils % Metamyelocytes % 1.0 H Neutrophils # 38.3 H Lymphocytes # 0.4 L Monocytes # 1.7 H Eosinophils # Metamyelocytes # 0.4 Platelet Estimate PLT APPEAR DECREASED Anisocytosis 1+ Sodium Level 141 Potassium Level 3.5 Chloride Level 110 Carbon Dioxide Level 19 L Anion Gap 16 Blood Urea Nitrogen 37 H Creatinine 1.29 H Glucose Level 91 Lactic Acid Level 1.7 Calcium Level 8.4 Magnesium Level 2.3 Total Bilirubin 0.1 L Direct Bilirubin 0.00 Indirect Bilirubin 0.1 Aspartate Amino Transf (AST/SGOT) 88 H Alanine Aminotransferase (ALT/SGPT) 292 H Alkaline Phosphatase 197 H Total Protein 4.5 L Albumin 2.3 L Globulin 2.20 Albumin/Globulin Ratio 1.04 Digoxin Level 0.9 L Test 04/15/17 05:35 Bedside Glucose 102 Medications Medications Current Medications Enoxaparin Sodium 40 mg 40 mg DAILY SC Last administered on 04/15/17 09:30; Admin Dose 40 MG; Start 04/12/17 at 09:00 Norepinephrine/ Dextrose (Levophed/D5W) 500 ml @ 0 mls/hr TITRATE IV Last administered on 04/14/17 10:24; Admin Dose 18.75 MLS/HR; Start 04/11/17 at 12:30 Aspirin (Aspirin) 325 mg DAILY NGT Last administered on 04/15/17 09:26; Admin Dose 325 MG; Start 04/12/17 at 09:00 Metoprolol Tartrate (Lopressor) 25 mg BID NGT Last administered on 04/15/17 10: 40; Admin Dose 25 MG; Start 04/11/17 at 21:00 Metoprolol Tartrate (Lopressor) 5 mg Q4H PRN IV HR>110 Hold SBP<110; Start at 13:30 Lansoprazole 30 mg 30 mg DAILY GTB Last administered on 04/15/17 09:26; Admin Dose 30 MG; Start 04/12/17 at 09:00 Phenylephrine HCl/ Dextrose (Chuy-Syneph/D5W) 500 ml @ 0 mls/hr TITRATE IV Last administered on 04/12/17 02:52; Admin Dose 75 MLS/HR; Start 04/11/17 at 16:00 Miscellaneous Information 1 ea NOTE XX ; Start 04/11/17 at 16:30 Glucose (Glutose) 15 gm Q15M PRN PO DECREASED GLUCOSE; Start 04/11/17 at 16:30 Glucose (Glutose) 22.5 gm Q15M PRN PO DECREASED GLUCOSE; Start 04/11/17 at 16: 30 Dextrose (D50w Syringe) 25 ml Q15M PRN IV DECREASED GLUCOSE Last administered on 04/12/17 23:56; Admin Dose 25 ML; Start 04/11/17 at 16:30 Dextrose (D50w Syringe) 50 ml Q15M PRN IV DECREASED GLUCOSE; Start 04/11/17 at 16:30 Glucagon (Glucagen) 1 mg Q15M PRN IM DECREASED GLUCOSE; Start 04/11/17 at 16:30 Glucose 15 gm 15 gm Q15M PRN BUCCAL DECREASED GLUCOSE; Start 04/11/17 at 16:30 Midazolam HCl 50 ml @ 1 mls/hr TITRATE IV Last administered on 04/13/17 04:30; Admin Dose 2 MLS/HR; Start 04/11/17 at 23:30 Fentanyl (Sublimaze) 100 ml @ 0.5 mls/hr TITRATE IV Last administered on 19:56; Admin Dose 0.5 MLS/HR; Start 04/12/17 at 09:30 Vancomycin HCl 125 mg 125 mg Q6 PO Last administered on 04/15/17 05:30; Admin Dose 125 MG; Start 04/12/17 at 12:00 Vancomycin HCl (Vancocin) 250 ml @ 125 mls/hr Q36H IVPB Last administered on 01:54; Admin Dose 125 MLS/HR; Start 04/14/17 at 01:00 Metoclopramide HCl 10 mg 10 mg Q6 IV Last administered on 04/15/17 05:30; Admin Dose 10 MG; Start 04/12/17 at 18:00 Azithromycin 500 mg/Sodium Chloride 250 ml @ 250 mls/hr Q24H IVPB Last administered on 04/14/17 12:04; Admin Dose 250 MLS/HR; Start 04/13/17 at 12:00 Meropenem (Merrem 1 Gm/100 ml (Pmx)) 100 ml @ 200 mls/hr Q8 IVPB Last administered on 04/15/17 05:31; Admin Dose 200 MLS/HR; Start 04/13/17 at 14:00 Miscellaneous Information (*Rx Drug Level Order Reminder*) VANCOMYCIN TROUGH 04/15 AT 1200 ONCE ONCE XX ; Start 04/15/17 at 12:00; Stop 04/15/17 at 12:01 Hydrocortisone (Solu-Cortef) 50 mg TID IV Last administered on 04/15/17 09:26; Admin Dose 50 MG; Start 04/14/17 at 21:00 Insulin Aspart (Novolog Insulin Pen) NOVOLOG *MILD* ALGORI... Q6H SC ; Start 04/15/17 at 00:00 Furosemide (Lasix) 20 mg DAILY IV ; Start 04/16/17 at 09:00 BETTIE ROBERTS MD Apr 15, 2017 11:00
--- NOTE | 2017-04-15 11:05 | CONS ---
Date/Time of Note Date/Time of Note DATE: 04/15/17 TIME: 11:01 Assessment/Plan Assessment/Plan Problems: (1) Steroid dependence Status: Chronic Comment: Pt. seems relatively stable on hydrocortisone 50 mg IV q8. No hyperglycemia and BP controlled. Will continue this dose for now while pt. remains profoundly ill. When shows signs of improvement, will begin to wean steroid dosage. Consultation Date/Type/Reason Admit Date/Time Apr 11, 2017 at 11:28 Initial Consult Date 04/14/17 Type of Consultation: Endocrinology Reason for Consultation Adrenal Insufficiency Referring Provider: NINA MACIEL DO 24 HR Interval Summary Subjective hx not possible: pt critical status Exam/Review of Systems Vital Signs Vitals VS - Last 72 Hours, by Label Date Time Temp Pulse Resp B/P Pulse Ox O2 Delivery O2 Flow Rate FiO2 04/15/17 08:00 105 04/15/17 07:00 88 28 96/70 100 Mechanical Ventilator 04/15/17 06:00 97 28 136/73 100 Mechanical Ventilator 04/15/17 05:00 94 28 105/66 100 Mechanical Ventilator 04/15/17 04:00 93 04/15/17 04:00 97.8 28 120/77 100 Mechanical Ventilator 04/15/17 03:35 90 28 100 35 04/15/17 03:30 92 28 83/60 100 Mechanical Ventilator 04/15/17 03:22 101 28 100 35 04/15/17 03:00 95 25 117/83 100 Mechanical Ventilator 04/15/17 02:30 93 28 120/71 100 Mechanical Ventilator 04/15/17 02:00 100 28 165/104 100 Mechanical Ventilator 04/15/17 01:30 90 28 90/60 100 Mechanical Ventilator 04/15/17 01:27 89 28 100 35 04/15/17 01:00 89 28 87/61 100 Mechanical Ventilator 04/15/17 00:30 89 25 103/77 100 Mechanical Ventilator 04/15/17 00:00 93 04/15/17 00:00 98.8 93 28 140/92 100 Mechanical Ventilator 04/14/17 23:32 88 28 100 35 04/14/17 23:30 96 26 145/96 100 Mechanical Ventilator 04/14/17 23:00 90 26 92/71 100 Mechanical Ventilator 04/14/17 22:30 92 28 120/73 100 Mechanical Ventilator 7/3/17 22:00 93 28 142/80 100 Mechanical Ventilator 7/3/17 21:33 90 28 100 35 7/3/17 21:30 91 28 108/76 100 Mechanical Ventilator 7/3/17 21:00 95 28 144/80 100 Mechanical Ventilator 7/3/17 20:30 88 28 85/62 100 Mechanical Ventilator 7/3/17 20:00 88 7/3/17 20:00 98.0 90 28 103/68 100 Mechanical Ventilator 7/3/17 20:00 35 7/3/17 19:39 90 28 100 35 7/3/17 19:30 95 28 129/84 100 Mechanical Ventilator 7/3/17 19:00 89 28 98/66 100 Mechanical Ventilator 7/3/17 18:00 94 28 87/69 100 Mechanical Ventilator 7/3/17 17:30 92 28 99/68 100 Mechanical Ventilator 7/3/17 17:10 98 28 100 35 7/3/17 17:00 98.0 99 28 113/83 100 Mechanical Ventilator 7/3/17 16:30 110 7/3/17 15:30 104 28 152/107 99 Mechanical Ventilator 7/3/17 15:00 127 28 100 35 7/3/17 15:00 125 28 140/112 98 Mechanical Ventilator 7/3/17 14:30 120 28 114/82 98 Mechanical Ventilator 7/3/17 14:00 125 28 97/74 98 Mechanical Ventilator 7/3/17 13:30 127 29 119/90 98 Mechanical Ventilator 7/3/17 13:25 112 28 100 35 7/3/17 13:15 122 28 114/82 98 Mechanical Ventilator 7/3/17 13:00 126 29 97/71 98 Mechanical Ventilator 7/3/17 12:30 119 28 81/61 99 Mechanical Ventilator 7/3/17 12:15 107 28 110/92 99 Mechanical Ventilator 7/3/17 12:00 121 7/3/17 12:00 123 28 99/80 100 Mechanical Ventilator 7/3/17 11:45 128 28 138/104 100 Mechanical Ventilator 7/3/17 11:30 131 32 133/86 100 Mechanical Ventilator 7/3/17 11:15 98.8 135 33 174/123 97 Mechanical Ventilator 7/3/17 11:00 133 28 155/107 99 Mechanical Ventilator 7/3/17 10:45 125 29 161/112 100 Mechanical Ventilator 7/3/17 10:45 96 28 100 35 7/3/17 10:30 104 28 131/97 98 Mechanical Ventilator 7/3/17 10:15 121 28 104/75 96 Mechanical Ventilator 7/3/17 10:00 108 28 104/83 92 Mechanical Ventilator 7/3/17 09:45 89 28 60/52 97 Mechanical Ventilator 7/3/17 09:15 120 28 92/75 96 Mechanical Ventilator 7/3/17 09:00 116 28 69/54 96 Mechanical Ventilator 7/3/17 08:50 115 28 98 35 7/3/17 08:45 121 28 86/62 100 Mechanical Ventilator 7/3/17 08:30 146 31 161/118 100 Mechanical Ventilator 7/3/17 08:00 143 7/3/17 08:00 143 29 171/158 100 Mechanical Ventilator 7/3/17 07:50 157 28 100 35 7/3/17 07:30 35 7/3/17 07:30 128 28 127/90 100 Mechanical Ventilator 7/3/17 07:15 141 28 85/57 100 Mechanical Ventilator 7/3/17 07:00 139 28 139/109 100 Mechanical Ventilator 7/3/17 06:45 98.4 140 25 159/100 98 Mechanical Ventilator 7/3/17 06:30 135 21 130/94 98 Mechanical Ventilator 7/3/17 06:15 136 28 123/90 97 Mechanical Ventilator 7/3/17 06:00 142 30 131/87 100 Mechanical Ventilator 7/3/17 05:45 136 29 145/132 100 Mechanical Ventilator 7/3/17 05:45 151 29 100 35 7/3/17 05:30 149 28 123/81 100 Mechanical Ventilator 7/3/17 05:15 142 29 149/118 100 Mechanical Ventilator 7/3/17 05:00 131 28 142/123 100 Mechanical Ventilator 7/3/17 04:30 154 28 161/110 100 Mechanical Ventilator 7/3/17 04:15 132 28 105/78 100 Mechanical Ventilator 7/3/17 04:00 98.4 133 28 85/64 100 Mechanical Ventilator 7/3/17 04:00 129 7/3/17 03:45 140 28 113/73 100 Mechanical Ventilator 7/3/17 03:30 151 28 170/109 100 Mechanical Ventilator 7/3/17 03:15 137 28 111/95 100 Mechanical Ventilator 7/3/17 03:10 131 28 100 35 7/3/17 03:00 152 28 115/74 100 Mechanical Ventilator 7/3/17 02:45 140 28 111/70 100 Mechanical Ventilator 7/3/17 02:30 125 28 155/99 100 Mechanical Ventilator 7/3/17 02:15 150 28 123/83 100 Mechanical Ventilator 7/3/17 02:00 157 28 100 Mechanical Ventilator 7/3/17 01:45 149 26 92/74 100 Mechanical Ventilator 7/3/17 01:35 151 28 100 35 7/3/ 01:30 157 26 133/86 99 Mechanical Ventilator 7/3/17 01:15 143 26 95/77 99 Mechanical Ventilator 7/3/17 01:00 144 26 92/71 98 Mechanical Ventilator 73/17 00:45 154 26 96/75 97 Mechanical Ventilator 73/ 00:15 140 29 110/72 98 Mechanical Ventilator 7/3/17 00:00 98.4 147 28 99/75 100 Mechanical Ventilator 73/17 00:00 124 72/17 23:40 152 28 100 35 2/17 23:30 137 29 107/71 100 Mechanical Ventilator 72/17 23:15 151 28 103/77 100 Mechanical Ventilator 7/2/17 23:00 158 26 128/86 100 Mechanical Ventilator 72/17 22:45 132 30 92/64 100 Mechanical Ventilator 7/2/17 22:30 157 26 108/80 100 Mechanical Ventilator 7/2/17 22:15 144 23 117/89 100 Mechanical Ventilator 7/2/17 22:00 132 22 98/73 100 Mechanical Ventilator 7/2/17 21:45 138 22 90/62 100 Mechanical Ventilator 7/2/17 21:30 140 22 86/64 100 Mechanical Ventilator 7/2/17 21:24 136 28 100 35 7/2/17 21:15 140 22 85/63 100 Mechanical Ventilator 7/2/17 21:00 142 22 93/75 100 Mechanical Ventilator 7/2/17 20:45 137 22 90/57 99 Mechanical Ventilator 7/2/17 20:30 142 22 106/67 100 Mechanical Ventilator 7/2/17 20:15 122 15 93/63 99 Mechanical Ventilator 7/2/17 20:14 35 7/2/17 20:00 98.4 153 21 104/62 99 Mechanical Ventilator 7/2/17 20:00 145 7/2/17 19:50 157 29 100 35 7/2/17 19:45 170 34 138/105 100 Mechanical Ventilator 7/2/17 19:30 153 16 120/81 100 Mechanical Ventilator 7/2/17 19:15 149 17 113/76 99 Mechanical Ventilator 7/2/17 19:00 145 25 92/60 98 Mechanical Ventilator 7/2/17 18:45 161 28 116/75 97 Mechanical Ventilator 7/2/17 18:30 185 25 101/60 98 Mechanical Ventilator 7/2/17 18:24 182 7/2/17 18:15 131 28 148/83 98 Mechanical Ventilator 7/2/17 18:00 124 28 98 Mechanical Ventilator 7/2/17 17:45 123 12 135/81 99 Mechanical Ventilator 7/2/17 17:30 120 28 98 35 7/2/17 17:30 120 13 109/69 98 Mechanical Ventilator 7/2/17 17:15 122 15 121/77 98 Mechanical Ventilator 7/2/17 17:00 122 28 121/76 98 Mechanical Ventilator 7/2/17 16:45 122 28 128/75 98 Mechanical Ventilator 7/2/17 16:30 120 28 117/73 98 Mechanical Ventilator 7/2/17 16:15 123 28 123/71 98 Mechanical Ventilator 7/2/17 16:00 98.6 123 28 125/73 98 Mechanical Ventilator 7/2/17 16:00 123 7/2/17 15:45 122 28 109/68 98 Mechanical Ventilator 7/2/17 15:30 125 28 99 35 7/2/17 15:30 122 28 109/64 98 Mechanical Ventilator 7/2/17 15:15 126 28 141/79 100 Mechanical Ventilator 7/2/17 15:00 121 28 95/54 97 Mechanical Ventilator 7/2/17 14:45 121 28 102/61 98 Mechanical Ventilator 7/2/17 14:30 120 28 106/59 99 Mechanical Ventilator 7/2/17 14:15 120 28 110/61 98 Mechanical Ventilator 7/2/17 14:00 125 28 130/69 99 Mechanical Ventilator 7/2/17 13:30 120 28 98 35 7/2/17 13:00 118 28 91/51 99 Mechanical Ventilator 7/2/17 12:00 35 7/2/17 12:00 98.6 118 28 88/56 97 Mechanical Ventilator 7/2/17 12:00 118 04/13/17 11:30 125 28 94 35 04/13/17 11:00 126 28 92/56 94 Mechanical Ventilator 04/13/17 10:00 131 21 127/61 100 Mechanical Ventilator 04/13/17 09:30 132 21 100 60 04/13/17 09:00 125 19 113/60 100 Mechanical Ventilator 04/13/17 08:00 60 04/13/17 08:00 122 21 100 60 04/13/17 08:00 123 04/13/17 08:00 98.3 123 18 98/65 100 Mechanical Ventilator 04/13/17 07:00 121 18 97/57 100 Mechanical Ventilator 04/13/17 06:00 121 17 92/59 100 04/13/17 05:30 121 18 96/58 100 04/13/17 05:27 122 22 100 60 04/13/17 05:26 60 04/13/17 05:02 121 21 100 80 04/13/17 05:00 121 20 100 04/13/17 04:30 121 17 92/57 100 04/13/17 04:00 75 04/13/17 04:00 126 19 95/58 100 04/13/17 04:00 98.6 04/13/17 03:45 116 24 100 80 04/13/17 03:30 129 21 126/70 100 04/13/17 03:00 127 22 107/57 100 04/13/17 02:30 126 21 102/54 100 04/13/17 02:00 127 20 114/66 100 Mechanical Ventilator 04/13/17 01:33 118 21 100 80 04/13/17 01:30 125 20 107/62 100 Mechanical Ventilator 04/13/17 01:00 125 20 109/66 100 Mechanical Ventilator 04/13/17 00:30 125 20 101/63 100 Mechanical Ventilator 04/13/17 00:00 122 04/13/17 00:00 124 22 97/56 100 Mechanical Ventilator 04/13/17 00:00 98.0 Mechanical Ventilator 04/12/17 23:47 129 25 99 80 04/12/17 23:30 124 20 90/54 100 Mechanical Ventilator 04/12/17 23:00 125 21 94/58 100 Mechanical Ventilator 04/12/17 22:30 125 21 92/60 100 Mechanical Ventilator 04/12/17 22:00 126 22 106/61 100 Mechanical Ventilator 04/12/17 21:48 125 22 100 04/12/17 21:30 128 22 107/60 100 Mechanical Ventilator 04/12/17 21:00 127 24 89/57 100 Mechanical Ventilator 04/12/17 20:30 131 25 93/56 100 Mechanical Ventilator 04/12/17 20:00 136 26 139/80 100 04/12/17 20:00 98.8 Mechanical Ventilator 04/12/17 20:00 125 04/12/17 19:37 139 33 100 80 04/12/17 18:30 133 26 129/69 100 Mechanical Ventilator 04/12/17 18:15 132 31 115/73 100 Mechanical Ventilator 04/12/17 18:00 130 27 105/60 98 Mechanical Ventilator 04/12/17 17:45 130 28 100 80 04/12/17 17:45 134 32 130/75 100 Mechanical Ventilator 04/12/17 17:30 134 27 137/79 100 Mechanical Ventilator 04/12/17 17:15 127 29 103/72 100 Mechanical Ventilator 04/12/17 17:00 127 26 91/58 100 Mechanical Ventilator 04/12/17 16:45 127 25 95/56 100 Mechanical Ventilator 04/12/17 16:30 128 25 88/57 100 Mechanical Ventilator 04/12/17 16:30 134 04/12/17 16:15 98.3 134 33 120/68 100 Mechanical Ventilator 04/12/17 16:01 133 28 100 80 04/12/17 16:00 134 29 100 Mechanical Ventilator 04/12/17 16:00 80 04/12/17 15:45 133 18 110/61 99 Mechanical Ventilator 04/12/17 15:30 131 27 118/61 98 Mechanical Ventilator 04/12/17 15:15 131 26 115/57 100 Mechanical Ventilator 04/12/17 15:00 125 27 70/50 98 Mechanical Ventilator 04/12/17 14:45 131 32 113/61 98 Mechanical Ventilator 04/12/17 14:30 133 27 108/65 98 Mechanical Ventilator 04/12/17 14:16 131 98 80 04/12/17 14:15 132 28 112/61 98 Mechanical Ventilator 04/12/17 14:00 133 32 124/71 99 Mechanical Ventilator 04/12/17 13:45 131 32 86/56 97 Mechanical Ventilator 04/12/17 13:30 134 29 117/65 98 Mechanical Ventilator 04/12/17 13:15 135 27 124/74 100 Mechanical Ventilator 04/12/17 13:00 129 26 96/62 100 Mechanical Ventilator 04/12/17 12:45 135 26 135/81 100 Mechanical Ventilator 04/12/17 12:30 124 26 90/60 100 Mechanical Ventilator 04/12/17 12:15 128 23 106/66 100 Mechanical Ventilator 04/12/17 12:08 123 04/12/17 12:06 126 26 100 100 04/12/17 12:00 98.9 124 26 78/54 100 Mechanical Ventilator 04/12/17 11:45 125 23 85/58 100 Mechanical Ventilator 04/12/17 11:30 128 26 96/60 100 Mechanical Ventilator 04/12/17 11:15 127 26 92/67 100 Mechanical Ventilator Vital Signs Date Time Temp Pulse Resp B/P Pulse Ox O2 Delivery O2 Flow Rate FiO2 04/15/17 08:00 105 04/15/17 07:00 28 96/70 100 Mechanical Ventilator 04/15/17 04:00 97.8 04/15/17 03:35 35 04/12/17 08:00 Intake and Output 04/14/17 04/14/17 04/15/17 15:00 23:00 07:00 Intake Total 901.28 ml 560.48 ml 560.5 ml Output Total 270 ml 121 ml 220 ml Balance 631.28 ml 439.48 ml 340.5 ml Exam Constitutional: non-verbal, No alert ENMT: intubated Neck: masses Respiratory: clear to auscultation, normal air movement Cardiovascular: nl pulses, regular rate and rhythm, systolic murmur, No edema, No rub Gastrointestinal: bowel sounds, distended, firm, nl liver, spleen, non-tender, No soft Musculoskeletal: nl extremities to inspection Extremities: normal pulses, No clubbing, No cyanosis, No edema Neurological: unresponsive Additional Comments Bedside Glucose - 72 Hours Test 04/12/17 12:38 04/12/17 18:10 04/12/17 18:30 04/12/17 18:52 Bedside Glucose 108mg/dL (70-220) 61mg/dL (70-220) L 137mg/dL (70-220) 133mg/dL (70-220) Test 04/12/17 20:37 04/12/17 23:53 04/13/17 00:24 04/13/17 04:33 Bedside Glucose 89mg/dL (70-220) 64mg/dL (70-220) L 98mg/dL (70-220) 106mg/dL (70-220) Test 04/13/17 10:15 04/13/17 13:40 04/13/17 17:47 04/13/17 21:42 Bedside Glucose 114mg/dL (70-220) 112mg/dL (70-220) 128mg/dL (70-220) 141mg/dL (70-220) Test 04/14/17 01:42 04/14/17 05:17 04/14/17 08:12 04/14/17 12:27 Bedside Glucose 151mg/dL (70-220) 117mg/dL (70-220) 134mg/dL (70-220) 135mg/dL (70-220) Test 04/14/17 18:01 04/14/17 23:31 04/15/17 05:35 Bedside Glucose 116mg/dL (70-220) 100mg/dL (70-220) 102mg/dL (70-220) Results Result Diagram: 04/15/17 0430 04/15/17 0430 Results 24 hrs Laboratory Tests Test 04/14/17 12:27 04/14/17 18:01 04/14/17 23:31 04/15/17 04:30 Bedside Glucose 135 116 100 White Blood Count 42.5 H Red Blood Count 2.47 L Hemoglobin 8.3 L Hematocrit 26.1 L Mean Corpuscular Volume 105.7 H Mean Corpuscular Hemoglobin 33.6 H Mean Corpuscular Hemoglobin Concent 31.8 L Red Cell Distribution Width 14.6 H Platelet Count 129 L Mean Platelet Volume 11.3 H Neutrophils % 90.0 H Band Neutrophils % 4.0 Lymphocytes % 1.0 L Monocytes % 4.0 Eosinophils % Metamyelocytes % 1.0 H Neutrophils # 38.3 H Lymphocytes # 0.4 L Monocytes # 1.7 H Eosinophils # Metamyelocytes # 0.4 Platelet Estimate PLT APPEAR DECREASED Anisocytosis 1+ Sodium Level 141 Potassium Level 3.5 Chloride Level 110 Carbon Dioxide Level 19 L Anion Gap 16 Blood Urea Nitrogen 37 H Creatinine 1.29 H Glucose Level 91 Lactic Acid Level 1.7 Calcium Level 8.4 Magnesium Level 2.3 Total Bilirubin 0.1 L Direct Bilirubin 0.00 Indirect Bilirubin 0.1 Aspartate Amino Transf (AST/SGOT) 88 H Alanine Aminotransferase (ALT/SGPT) 292 H Alkaline Phosphatase 197 H Total Protein 4.5 L Albumin 2.3 L Globulin 2.20 Albumin/Globulin Ratio 1.04 Digoxin Level 0.9 L Test 04/15/17 05:35 04/15/17 07:00 Bedside Glucose 102 Blood Gas Specimen Source Blood arterial Arterial Blood Date Drawn 04/15/2017 8:20:13 AM Arterial Blood pH (Temp corrected) 7.406 Arterial Blood pCO2 (Temp correct) 30.0 L Arterial Blood pO2 (Temp corrected) 103.9 H Arterial Blood HCO3 18.4 L Arterial Blood Base Excess -5.3 L Arterial Blood Oxygen Saturation 97.7 Jonn Test ACCEPTAB Arterial Blood Gas Puncture Site Right Radial Arterial Blood Carboxyhemoglobin 0.3 Arterial Blood Methemoglobin 0.3 Blood Gas A-a O2 Differential 110.8 H Oxyhemoglobin Percent 97.1 Total Hemoglobin 10.3 L Blood Gas Temperature 37.0 Blood Gas Respiration Rate 28.0 Blood Gas Actual Respiration Rate 28 Blood Gas Modality VENT - AC FiO2 35.0 Blood Gas Tidal Volume 450.0 Blood Gas Low PEEP Setting 5.0 Blood Gas Notified Whom CW Blood Gas Notified Time 04/15/2017 9:03:36 AM Medications Medications Current Medications Enoxaparin Sodium 40 mg 40 mg DAILY SC Last administered on 04/15/17 09:30; Admin Dose 40 MG; Start 04/12/17 at 09:00 Norepinephrine/ Dextrose (Levophed/D5W) 500 ml @ 0 mls/hr TITRATE IV Last administered on 04/14/17 10:24; Admin Dose 18.75 MLS/HR; Start 04/11/17 at 12:30 Aspirin (Aspirin) 325 mg DAILY NGT Last administered on 04/15/17 09:26; Admin Dose 325 MG; Start 04/12/17 at 09:00 Metoprolol Tartrate (Lopressor) 25 mg BID NGT Last administered on 04/15/17 10: 40; Admin Dose 25 MG; Start 04/11/17 at 21:00 Metoprolol Tartrate (Lopressor) 5 mg Q4H PRN IV HR>110 Hold SBP<110; Start at 13:30 Lansoprazole 30 mg 30 mg DAILY GTB Last administered on 04/15/17 09:26; Admin Dose 30 MG; Start 04/12/17 at 09:00 Phenylephrine HCl/ Dextrose (Chuy-Syneph/D5W) 500 ml @ 0 mls/hr TITRATE IV Last administered on 04/12/17 02:52; Admin Dose 75 MLS/HR; Start 04/11/17 at 16:00 Miscellaneous Information 1 ea NOTE XX ; Start 04/11/17 at 16:30 Glucose (Glutose) 15 gm Q15M PRN PO DECREASED GLUCOSE; Start 04/11/17 at 16:30 Glucose (Glutose) 22.5 gm Q15M PRN PO DECREASED GLUCOSE; Start 04/11/17 at 16: 30 Dextrose (D50w Syringe) 25 ml Q15M PRN IV DECREASED GLUCOSE Last administered on 04/12/17 23:56; Admin Dose 25 ML; Start 04/11/17 at 16:30 Dextrose (D50w Syringe) 50 ml Q15M PRN IV DECREASED GLUCOSE; Start 04/11/17 at 16:30 Glucagon (Glucagen) 1 mg Q15M PRN IM DECREASED GLUCOSE; Start 04/11/17 at 16:30 Glucose 15 gm 15 gm Q15M PRN BUCCAL DECREASED GLUCOSE; Start 04/11/17 at 16:30 Midazolam HCl 50 ml @ 1 mls/hr TITRATE IV Last administered on 04/13/17 04:30; Admin Dose 2 MLS/HR; Start 04/11/17 at 23:30 Fentanyl (Sublimaze) 100 ml @ 0.5 mls/hr TITRATE IV Last administered on 19:56; Admin Dose 0.5 MLS/HR; Start 04/12/17 at 09:30 Vancomycin HCl 125 mg 125 mg Q6 PO Last administered on 04/15/17 05:30; Admin Dose 125 MG; Start 04/12/17 at 12:00 Vancomycin HCl (Vancocin) 250 ml @ 125 mls/hr Q36H IVPB Last administered on 01:54; Admin Dose 125 MLS/HR; Start 04/14/17 at 01:00 Metoclopramide HCl 10 mg 10 mg Q6 IV Last administered on 04/15/17 05:30; Admin Dose 10 MG; Start 04/12/17 at 18:00 Azithromycin 500 mg/Sodium Chloride 250 ml @ 250 mls/hr Q24H IVPB Last administered on 04/14/17 12:04; Admin Dose 250 MLS/HR; Start 04/13/17 at 12:00 Meropenem (Merrem 1 Gm/100 ml (Pmx)) 100 ml @ 200 mls/hr Q8 IVPB Last administered on 04/15/17 05:31; Admin Dose 200 MLS/HR; Start 04/13/17 at 14:00 Miscellaneous Information (*Rx Drug Level Order Reminder*) VANCOMYCIN TROUGH 04/15 AT 1200 ONCE ONCE XX ; Start 04/15/17 at 12:00; Stop 04/15/17 at 12:01 Hydrocortisone (Solu-Cortef) 50 mg TID IV Last administered on 04/15/17 09:26; Admin Dose 50 MG; Start 04/14/17 at 21:00 Insulin Aspart (Novolog Insulin Pen) NOVOLOG *MILD* ALGORI... Q6H SC ; Start 04/15/17 at 00:00 Furosemide (Lasix) 20 mg DAILY IV ; Start 04/16/17 at 09:00 JEAN CISNEROS MD Apr 15, 2017 11:05
--- NOTE | 2017-04-15 11:07 | CONS ---
Date/Time of Note Date/Time of Note DATE: 04/15/17 TIME: 11:06 Assessment/Plan Assessment/Plan Chief Complaint/Hosp Course No acute changes overnight, patient remains unresponsive off sedation, comfortable on vent. Vital signs: temperature 97.8 pulse 93 respirations 28 blood pressure 120/77 saturation 100 on FiO2 of 35 laboratory data: WBC 42.5 H&H 8.3 and 26.1 platelets 129 neutrophils 90 bands 4 lymphs 1 monocyte 4 BUN 37 creatinine 1.29 Microbiology: Blood and urine culture remain negative, sputum culture growing gram-negative rods. Indwelling's: Endotracheal tube, PEG, Latif Diagnostics: Chest x-ray revealed grossly stable patchy bilateral pulmonary opacities Antimicrobials: Vancomycin, meropenem, Zithromax Physical examination: Well-developed, fragile elderly woman who is in no distress. Head atraumatic, normocephalic. Sclerae nonicteric neck is supple, trachea midline. Chest rise symmetrical, breath sounds diminished basis. Abdomen soft, bowel tones present. Extremities without cyanosis, trace edema. Assessment: 1. Severe sepsis, status post shock 2. Acute on chronic respiratory failure likely secondary to aspiration events 3. Healthcare associated pneumonia 4. Leukocytosis, patient had been on Solu-Cortef since admission 5. Diarrhea with a history of C. difficile colitis 6. 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 Gallstones 10. Acute encephalopathy, possibly anoxic Plan: Hemodynamically stable, continue antibiotics, add empiric Flagyl, await for final cultures, follow recommendations of consultants pending MRI of the brain Discussed with Discussed with RN Problems: Consultation Date/Type/Reason Admit Date/Time Apr 11, 2017 at 11:28 Initial Consult Date 04/12/17 Type of Consultation: id Referring Provider: NINA MACIEL DO Exam/Review of Systems Vital Signs Vitals Vital Signs Date Time Temp Pulse Resp B/P Pulse Ox O2 Delivery O2 Flow Rate FiO2 04/15/17 08:00 105 04/15/17 07:00 28 96/70 100 Mechanical Ventilator 04/15/17 04:00 97.8 04/15/17 03:35 35 04/12/17 08:00 Intake and Output 04/14/17 04/14/17 04/15/17 15:00 23:00 07:00 Intake Total 901.28 ml 560.48 ml 560.5 ml Output Total 270 ml 121 ml 220 ml Balance 631.28 ml 439.48 ml 340.5 ml Results Result Diagram: 04/15/17 0430 04/15/17 0430 Results 24 hrs Laboratory Tests Test 04/14/17 12:27 04/14/17 18:01 04/14/17 23:31 04/15/17 04:30 Bedside Glucose 135 116 100 White Blood Count 42.5 H Red Blood Count 2.47 L Hemoglobin 8.3 L Hematocrit 26.1 L Mean Corpuscular Volume 105.7 H Mean Corpuscular Hemoglobin 33.6 H Mean Corpuscular Hemoglobin Concent 31.8 L Red Cell Distribution Width 14.6 H Platelet Count 129 L Mean Platelet Volume 11.3 H Neutrophils % 90.0 H Band Neutrophils % 4.0 Lymphocytes % 1.0 L Monocytes % 4.0 Eosinophils % Metamyelocytes % 1.0 H Neutrophils # 38.3 H Lymphocytes # 0.4 L Monocytes # 1.7 H Eosinophils # Metamyelocytes # 0.4 Platelet Estimate PLT APPEAR DECREASED Anisocytosis 1+ Sodium Level 141 Potassium Level 3.5 Chloride Level 110 Carbon Dioxide Level 19 L Anion Gap 16 Blood Urea Nitrogen 37 H Creatinine 1.29 H Glucose Level 91 Lactic Acid Level 1.7 Calcium Level 8.4 Magnesium Level 2.3 Total Bilirubin 0.1 L Direct Bilirubin 0.00 Indirect Bilirubin 0.1 Aspartate Amino Transf (AST/SGOT) 88 H Alanine Aminotransferase (ALT/SGPT) 292 H Alkaline Phosphatase 197 H Total Protein 4.5 L Albumin 2.3 L Globulin 2.20 Albumin/Globulin Ratio 1.04 Digoxin Level 0.9 L Test 04/15/17 05:35 04/15/17 07:00 Bedside Glucose 102 Blood Gas Specimen Source Blood arterial Arterial Blood Date Drawn 04/15/2017 8:20:13 AM Arterial Blood pH (Temp corrected) 7.406 Arterial Blood pCO2 (Temp correct) 30.0 L Arterial Blood pO2 (Temp corrected) 103.9 H Arterial Blood HCO3 18.4 L Arterial Blood Base Excess -5.3 L Arterial Blood Oxygen Saturation 97.7 Jonn Test ACCEPTAB Arterial Blood Gas Puncture Site Right Radial Arterial Blood Carboxyhemoglobin 0.3 Arterial Blood Methemoglobin 0.3 Blood Gas A-a O2 Differential 110.8 H Oxyhemoglobin Percent 97.1 Total Hemoglobin 10.3 L Blood Gas Temperature 37.0 Blood Gas Respiration Rate 28.0 Blood Gas Actual Respiration Rate 28 Blood Gas Modality VENT - AC FiO2 35.0 Blood Gas Tidal Volume 450.0 Blood Gas Low PEEP Setting 5.0 Blood Gas Notified Whom CW Blood Gas Notified Time 04/15/2017 9:03:36 AM Medications Medications Current Medications Enoxaparin Sodium 40 mg 40 mg DAILY SC Last administered on 04/15/17 09:30; Admin Dose 40 MG; Start 04/12/17 at 09:00 Norepinephrine/ Dextrose (Levophed/D5W) 500 ml @ 0 mls/hr TITRATE IV Last administered on 04/14/17 10:24; Admin Dose 18.75 MLS/HR; Start 04/11/17 at 12:30 Aspirin (Aspirin) 325 mg DAILY NGT Last administered on 04/15/17 09:26; Admin Dose 325 MG; Start 04/12/17 at 09:00 Metoprolol Tartrate (Lopressor) 25 mg BID NGT Last administered on 04/15/17 10: 40; Admin Dose 25 MG; Start 04/11/17 at 21:00 Metoprolol Tartrate (Lopressor) 5 mg Q4H PRN IV HR>110 Hold SBP<110; Start at 13:30 Lansoprazole 30 mg 30 mg DAILY GTB Last administered on 04/15/17 09:26; Admin Dose 30 MG; Start 04/12/17 at 09:00 Phenylephrine HCl/ Dextrose (Chuy-Syneph/D5W) 500 ml @ 0 mls/hr TITRATE IV Last administered on 04/12/17 02:52; Admin Dose 75 MLS/HR; Start 04/11/17 at 16:00 Miscellaneous Information 1 ea NOTE XX ; Start 04/11/17 at 16:30 Glucose (Glutose) 15 gm Q15M PRN PO DECREASED GLUCOSE; Start 04/11/17 at 16:30 Glucose (Glutose) 22.5 gm Q15M PRN PO DECREASED GLUCOSE; Start 04/11/17 at 16: 30 Dextrose (D50w Syringe) 25 ml Q15M PRN IV DECREASED GLUCOSE Last administered on 04/12/17 23:56; Admin Dose 25 ML; Start 04/11/17 at 16:30 Dextrose (D50w Syringe) 50 ml Q15M PRN IV DECREASED GLUCOSE; Start 04/11/17 at 16:30 Glucagon (Glucagen) 1 mg Q15M PRN IM DECREASED GLUCOSE; Start 04/11/17 at 16:30 Glucose 15 gm 15 gm Q15M PRN BUCCAL DECREASED GLUCOSE; Start 04/11/17 at 16:30 Midazolam HCl 50 ml @ 1 mls/hr TITRATE IV Last administered on 04/13/17 04:30; Admin Dose 2 MLS/HR; Start 04/11/17 at 23:30 Fentanyl (Sublimaze) 100 ml @ 0.5 mls/hr TITRATE IV Last administered on 19:56; Admin Dose 0.5 MLS/HR; Start 04/12/17 at 09:30 Vancomycin HCl 125 mg 125 mg Q6 PO Last administered on 04/15/17 05:30; Admin Dose 125 MG; Start 04/12/17 at 12:00 Vancomycin HCl (Vancocin) 250 ml @ 125 mls/hr Q36H IVPB Last administered on 01:54; Admin Dose 125 MLS/HR; Start 04/14/17 at 01:00 Metoclopramide HCl 10 mg 10 mg Q6 IV Last administered on 04/15/17 05:30; Admin Dose 10 MG; Start 04/12/17 at 18:00 Azithromycin 500 mg/Sodium Chloride 250 ml @ 250 mls/hr Q24H IVPB Last administered on 04/14/17 12:04; Admin Dose 250 MLS/HR; Start 04/13/17 at 12:00 Meropenem (Merrem 1 Gm/100 ml (Pmx)) 100 ml @ 200 mls/hr Q8 IVPB Last administered on 04/15/17 05:31; Admin Dose 200 MLS/HR; Start 04/13/17 at 14:00 Miscellaneous Information (*Rx Drug Level Order Reminder*) VANCOMYCIN TROUGH 04/15 AT 1200 ONCE ONCE XX ; Start 04/15/17 at 12:00; Stop 04/15/17 at 12:01 Hydrocortisone (Solu-Cortef) 50 mg TID IV Last administered on 04/15/17 09:26; Admin Dose 50 MG; Start 04/14/17 at 21:00 Insulin Aspart (Novolog Insulin Pen) NOVOLOG *MILD* ALGORI... Q6H SC ; Start 04/15/17 at 00:00 Furosemide (Lasix) 20 mg DAILY IV ; Start 04/16/17 at 09:00 LORETO MCKEON NP Apr 15, 2017 11:07
[2017-04-15] MEDS: AZITHROMYCIN 500 MG in SOD CHLORIDE 0.9% 250 ML IVPB SCH (11:52)
--- NOTE | 2017-04-15 12:26 | RADRPT ---
PROCEDURE: XR Chest. CLINICAL INDICATION: PICC line placement TECHNIQUE: Single frontal chest x-ray. COMPARISON: Same day radiographs FINDINGS: Since the prior study, there has been placement of a right PICC in which the tip is within the regio n of the right atrium. There is an endotracheal tube in which the tip is about 2.5 cm above the car lorrie. Nasogastric tube tip terminates below the field of view. There is slight decrease in the bilateral patchy pulmonary opacities. Heart and mediastinal contour s are similar with atherosclerotic calcifications within the aortic arch. There are surgical clips around the left and right neck. RPTAT: QQ IMPRESSION: 1. New right-sided PICC with the tip in the region of the right atrium. 2. Slight decrease in the bilateral pulmonary opacities which may be from pneumonia. .Faviola Esqueda MD, MD Date Time Electronically viewed and signed by .Faviola Esqueda MD, on 04/15/2017 12:26 .T/
--- NOTE | 2017-04-15 13:35 | PN ---
Date/Time of Note Date/Time of Note DATE: 04/15/17 TIME: 13:32 Assessment/Plan VTE Prophylaxis VTE Prophylaxis Intervention: other Lines/Catheters IV Catheter Type (from Nrsg): PICC Line Central line still needed: Yes Urinary Cath still in place: Yes Reason Cath still needed: other (indicate) Assessment/Plan Chief Complaint/Hosp Course 1. acute on chronic hypoxemic respiratory failure: s/p intubation on vent. 2. NSTEMI: due to demand ischemia. 3. CHF: due to diastolic heart failure 4. moderate 5. Arrhythmia and P afib, frequent PVC. 6. ANEMIA 7. pneumonia 8. s/p sepsis and shock on levophed drip now. cont ASA vent support and abx as per PULM Team. correct lytes prn cont ICU care. betablocker as long as BP is stable thyroid supplement . will closely monitor in ICU. s/p amiodarone drip Problems: Subjective 24 Hr Interval Summary Free Text/Dictation D/W staff and rhythm was reviewed. pt remains in NSR but with frequent PAC, PVC. pt remains intubated on vent in ICU. nonverbal d/w . Objective: General: Intubated on vent in ICU HEENT: NC/AT. eyes are closed. . NECK: NO JVD. no stridor. s/p previous trach with dressing covering it. CV: RRR. systolic ejection murmur; no gallop or rubs. PULM: no wheezing or rhonchi. GI: SOFT, NT, ND, no rebound or guarding s/p PEG Extremity: trace B/L LE edema. no clubbing. neuro: sedated Psych: calm rectal: deferred Derm: multiple echymosis Exam/Review of Systems Vital Signs Vitals Vital Signs Date Time Temp Pulse Resp B/P Pulse Ox O2 Delivery O2 Flow Rate FiO2 04/15/17 08:00 105 04/15/17 07:00 28 96/70 100 Mechanical Ventilator 04/15/17 04:00 97.8 04/15/17 03:35 35 04/12/17 08:00 Intake and Output 04/14/17 04/14/17 04/15/17 15:00 23:00 07:00 Intake Total 901.28 ml 560.48 ml 560.5 ml Output Total 270 ml 121 ml 220 ml Balance 631.28 ml 439.48 ml 340.5 ml Results Result Diagram: 04/15/17 0430 04/15/17 0430 Results 24 hrs Laboratory Tests Test 04/14/17 18:01 04/14/17 23:31 04/15/17 04:30 04/15/17 05:35 Bedside Glucose 116 100 102 White Blood Count 42.5 H Red Blood Count 2.47 L Hemoglobin 8.3 L Hematocrit 26.1 L Mean Corpuscular Volume 105.7 H Mean Corpuscular Hemoglobin 33.6 H Mean Corpuscular Hemoglobin Concent 31.8 L Red Cell Distribution Width 14.6 H Platelet Count 129 L Mean Platelet Volume 11.3 H Neutrophils % 90.0 H Band Neutrophils % 4.0 Lymphocytes % 1.0 L Monocytes % 4.0 Eosinophils % Metamyelocytes % 1.0 H Neutrophils # 38.3 H Lymphocytes # 0.4 L Monocytes # 1.7 H Eosinophils # Metamyelocytes # 0.4 Platelet Estimate PLT APPEAR DECREASED Anisocytosis 1+ Sodium Level 141 Potassium Level 3.5 Chloride Level 110 Carbon Dioxide Level 19 L Anion Gap 16 Blood Urea Nitrogen 37 H Creatinine 1.29 H Glucose Level 91 Lactic Acid Level 1.7 Calcium Level 8.4 Magnesium Level 2.3 Total Bilirubin 0.1 L Direct Bilirubin 0.00 Indirect Bilirubin 0.1 Aspartate Amino Transf (AST/SGOT) 88 H Alanine Aminotransferase (ALT/SGPT) 292 H Alkaline Phosphatase 197 H Total Protein 4.5 L Albumin 2.3 L Globulin 2.20 Albumin/Globulin Ratio 1.04 Digoxin Level 0.9 L Test 04/15/17 07:00 04/15/17 12:06 Blood Gas Specimen Source Blood arterial Arterial Blood Date Drawn 04/15/2017 8:20:13 AM Arterial Blood pH (Temp corrected) 7.406 Arterial Blood pCO2 (Temp correct) 30.0 L Arterial Blood pO2 (Temp corrected) 103.9 H Arterial Blood HCO3 18.4 L Arterial Blood Base Excess -5.3 L Arterial Blood Oxygen Saturation 97.7 Jonn Test ACCEPTAB Arterial Blood Gas Puncture Site Right Radial Arterial Blood Carboxyhemoglobin 0.3 Arterial Blood Methemoglobin 0.3 Blood Gas A-a O2 Differential 110.8 H Oxyhemoglobin Percent 97.1 Total Hemoglobin 10.3 L Blood Gas Temperature 37.0 Blood Gas Respiration Rate 28.0 Blood Gas Actual Respiration Rate 28 Blood Gas Modality VENT - AC FiO2 35.0 Blood Gas Tidal Volume 450.0 Blood Gas Low PEEP Setting 5.0 Blood Gas Notified Whom CW Blood Gas Notified Time 04/15/2017 9:03:36 AM Bedside Glucose 119 Medications Medications Current Medications Enoxaparin Sodium 40 mg 40 mg DAILY SC Last administered on 04/15/17 09:30; Admin Dose 40 MG; Start 04/12/17 at 09:00 Norepinephrine/ Dextrose (Levophed/D5W) 500 ml @ 0 mls/hr TITRATE IV Last administered on 04/14/17 10:24; Admin Dose 18.75 MLS/HR; Start 04/11/17 at 12:30 Aspirin (Aspirin) 325 mg DAILY NGT Last administered on 04/15/17 09:26; Admin Dose 325 MG; Start 04/12/17 at 09:00 Metoprolol Tartrate (Lopressor) 25 mg BID NGT Last administered on 04/15/17 10: 40; Admin Dose 25 MG; Start 04/11/17 at 21:00 Metoprolol Tartrate (Lopressor) 5 mg Q4H PRN IV HR>110 Hold SBP<110; Start at 13:30 Lansoprazole 30 mg 30 mg DAILY GTB Last administered on 04/15/17 09:26; Admin Dose 30 MG; Start 04/12/17 at 09:00 Phenylephrine HCl/ Dextrose (Chuy-Syneph/D5W) 500 ml @ 0 mls/hr TITRATE IV Last administered on 04/12/17 02:52; Admin Dose 75 MLS/HR; Start 04/11/17 at 16:00 Miscellaneous Information 1 ea NOTE XX ; Start 04/11/17 at 16:30 Glucose (Glutose) 15 gm Q15M PRN PO DECREASED GLUCOSE; Start 04/11/17 at 16:30 Glucose (Glutose) 22.5 gm Q15M PRN PO DECREASED GLUCOSE; Start 04/11/17 at 16: 30 Dextrose (D50w Syringe) 25 ml Q15M PRN IV DECREASED GLUCOSE Last administered on 04/12/17 23:56; Admin Dose 25 ML; Start 04/11/17 at 16:30 Dextrose (D50w Syringe) 50 ml Q15M PRN IV DECREASED GLUCOSE; Start 04/11/17 at 16:30 Glucagon (Glucagen) 1 mg Q15M PRN IM DECREASED GLUCOSE; Start 04/11/17 at 16:30 Glucose 15 gm 15 gm Q15M PRN BUCCAL DECREASED GLUCOSE; Start 04/11/17 at 16:30 Midazolam HCl 50 ml @ 1 mls/hr TITRATE IV Last administered on 04/13/17 04:30; Admin Dose 2 MLS/HR; Start 04/11/17 at 23:30 Fentanyl (Sublimaze) 100 ml @ 0.5 mls/hr TITRATE IV Last administered on 19:56; Admin Dose 0.5 MLS/HR; Start 04/12/17 at 09:30 Vancomycin HCl 125 mg 125 mg Q6 PO Last administered on 04/15/17 11:52; Admin Dose 125 MG; Start 04/12/17 at 12:00 Vancomycin HCl (Vancocin) 250 ml @ 125 mls/hr Q36H IVPB Last administered on 01:54; Admin Dose 125 MLS/HR; Start 04/14/17 at 01:00 Metoclopramide HCl 10 mg 10 mg Q6 IV Last administered on 04/15/17 11:52; Admin Dose 10 MG; Start 04/12/17 at 18:00 Azithromycin 500 mg/Sodium Chloride 250 ml @ 250 mls/hr Q24H IVPB Last administered on 04/15/17 11:52; Admin Dose 250 MLS/HR; Start 04/13/17 at 12:00 Meropenem (Merrem 1 Gm/100 ml (Pmx)) 100 ml @ 200 mls/hr Q8 IVPB Last administered on 04/15/17 05:31; Admin Dose 200 MLS/HR; Start 04/13/17 at 14:00 Hydrocortisone (Solu-Cortef) 50 mg TID IV Last administered on 04/15/17 09:26; Admin Dose 50 MG; Start 04/14/17 at 21:00 Insulin Aspart (Novolog Insulin Pen) NOVOLOG *MILD* ALGORI... Q6H SC ; Start 04/15/17 at 00:00 Furosemide (Lasix) 20 mg DAILY IV ; Start 04/16/17 at 09:00 Metronidazole (Flagyl) 500 mg Q8 NGT ; Start 04/15/17 at 14:00 IV Flush (NS 10 ml) 10 ml PRN PRN IV FLUSH LINE; Start 04/15/17 at 13:00 FRANCISCO BLACKWOOD MD Apr 15, 2017 13:35
--- NOTE | 2017-04-15 14:07 | RADRPT ---
PROCEDURE: US guidance for PICC line CLINICAL INDICATION: PICC line placement TECHNIQUE: Multiple real-time images were acquired of the patient's arm utilizing a high resolutio n transducer. This was performed by the PICC line nurse for venous access. COMPARISON: None FINDINGS: Ultrasound guidance for PICC line placement. IMPRESSION: Ultrasound guidance for PICC line placement. RPTAT: AA .José Miguel Valencia MD, MD Date Time Electronically viewed and signed by .José Miguel Valencia MD, on 04/15/2017 14:07 .S/
[2017-04-15] MEDS: VANCOMYCIN 1 GM (PMX) 250 ML IVPB SCH (14:47)
[2017-04-15] MEDS: metroNIDAZOLE 500 MG TAB NGT SCH ×2 (14:48→21:14)
--- NOTE | 2017-04-15 16:53 | RADRPT ---
PROCEDURE: Nuclear medicine hepatobiliary scan CLINICAL INDICATION: Right upper quadrant pain. Vomiting. TECHNIQUE: 8.1 mCi of technetium-99m Choletec was administered intravenously. Planar imaging of t he hepatobiliary system was performed. Delayed images were obtained. Images were reviewed on the h igh resolution PACS workstation. COMPARISON: CT scan abdomen 04/11/2017 FINDINGS: There is normal and homogeneous uptake throughout the hepatobiliary system. There is normal emptyin g of radiotracer into the biliary tract. The common bile duct is normal. The gallbladder is not vi sualized. There is visualization of the small bowel at 20 minutes. No gallbladder activity is seen o n the delayed phase images as IMPRESSION: 1. Positive hepatobiliary scan. There is lack of filling of the gallbladder. Findings are consiste nt with acute cholecystitis in the appropriate clinical setting. 2. Patent common bile duct with normal visualization of the small bowel. RPTAT: HMJB .Marcellus Garner MD, MD Date Time Electronically viewed and signed by .Marcellus Garner MD, on 04/14/2017 16:59 .B/
[2017-04-15] MEDS: LEVALBUTEROL (HFA) 15 GM INHALER INH PRN (19:58)
[2017-04-16] VITALS (45 sets, daily range): BP systolic 83–193; BP diastolic 52–106; PULSE 90–187; RESP 0–36
[2017-04-16] MEDS: VANCOMYCIN HCL 250 MG/5ML POSYG PO SCH ×5 (00:02→23:33)
[2017-04-16] MEDS: METOCLOPRAMIDE 10 MG INJ IV SCH ×5 (00:02→23:33)
[2017-04-16] MEDS ORDERED: DILTIAZEM 25 MG INJ ONE (04:25)
[2017-04-16] MEDS ORDERED: DILTIAZEM 25 MG INJ IV ONE (04:30)
[2017-04-16 05:07] LABS: ADD SCAN DIFF NO
[2017-04-16 05:13] LABS: ABNORMAL IP MESSAGE 1; HEMATOCRIT 29.5 % (37.0-47.0); HEMOGLOBIN 9.7 g/dl (12.0-16.0); MEAN CORPUSCULAR HEMOGLOBIN 34.2 pg (29.0-33.0); MEAN CORPUSCULAR HGB CONC 32.9 g/dl (32.0-37.0); MEAN CORPUSCULAR VOLUME 103.9 fl (82.0-101.0); MEAN PLATELET VOLUME 11.2 fl (7.4-10.4); PLATELET COUNT 144 10^3/UL (140-415); RED BLOOD COUNT 2.84 10^6/ul (4.20-5.40); RED CELL DISTRIBUTION WIDTH 14.6 % (11.5-14.5)
[2017-04-16 05:31] LABS: CALCIUM 8.4 mg/dl (8.4-10.2); CREATININE 1.31 mg/dl (0.44-1.00); MAGNESIUM 2.1 mg/dl (1.7-2.5); PHOSPHORUS 3.1 mg/dl (2.5-4.9); POTASSIUM 3.1 mmol/L (3.5-5.1)
[2017-04-16] MEDS: MEROPENEM 1 GM/100 ML (PMX) 100 ML IVPB SCH ×2 (05:34→21:24)
[2017-04-16] MEDS: metroNIDAZOLE 500 MG TAB NGT SCH ×3 (05:34→21:24)
[2017-04-16] MEDS: INSULIN ASPART [NOVOLOG] 3 ML PEN SC SCH ×5 (05:40→23:38)
[2017-04-16] MEDS: LEVOTHYROXINE 75 MCG TAB GTB SCH (06:22)
[2017-04-16] MEDS: FENTAnyl (DRIP) 1000 mcg/100mL 100 ML IV SCH (06:26)
[2017-04-16] MEDS ORDERED: POTASSIUM CHLORIDE 20 MEQ POWDER FOR ORAL SOLN GTB ONE ×2 (07:00→12:00)
--- NOTE | 2017-04-16 07:03 | RADRPT ---
PROCEDURE: XR Chest. CLINICAL INDICATION: Respiratory failure TECHNIQUE: Portable single view of the chest COMPARISON: 04/15 FINDINGS: Tubes and lines are unchanged in position. Mild cardiomegaly. Aortic calcification. Lung volumes are reduced. Changes of pulmonary vascular congestion and increased interstitial markings are again seen which may be due to congestive heart failure. Infectious infiltrate cannot completely exclude d. IMPRESSION: Slightly shallower lung volumes. Otherwise stable exam. RPTAT: HLBE Cristal Wilhelm Physician Date Time Electronically viewed and signed by Cristal Wilhelm Physician on 04/16/2017 07:03 LE/
--- NOTE | 2017-04-16 07:29 | PN ---
Date/Time of Note Date/Time of Note DATE: 04/16/17 TIME: 07:27 Assessment/Plan VTE Prophylaxis VTE Prophylaxis Intervention: other Lines/Catheters IV Catheter Type (from Nrs): PICC Line Central line still needed: Yes Urinary Cath still in place: Yes Reason Cath still needed: other (indicate) Assessment/Plan Chief Complaint/Hosp Course 1. Nonoliguric keyonna. With previously normal baseline creatinine. Etiology is likely secondary to septic KEYONNA with possible ATN -Renal function has been stable, urinary output is marginal but improved -Continue treatment plan. Supportive care renally dose meds avoid nephrotoxins -Follow-up renal panel - 2. Sepsis, status post shock. Etiology is likely secondary to aspiration pneumonia, -Patient currently off pressors. Remains on antibiotics - Patient's blood cultures have been reviewed. Continue current treatment plan Follow-up with infectious disease 3. Ventilator dependent respiratory failure. Etiology secondary to pneumonia, CHF . Vent settings, ABG been reviewed. Continue current vent settings follow-up with pulmonary 4. Volume overload. Etiology likely secondary to sepsis capillary leak. Possible diastolic heart failure. -Continue low-dose Lasix 5. Elevated troponin. Possible non-STEMI type II. We will continue to monitor follow-up with cardiology 6. History of adrenal insufficiency. -Patient currently on stress steroids, -Appreciate endocrinology evaluation 7. Acute encephalopathy etiologies toxic metabolic, possible anoxic injury. CT scan showed no acute finding Appreciate Dr. Ellis evaluation -Continue to monitor closely 8. Transaminitis. Etiology possibly multifactorial ischemic hepatitis, acute cholecystitis, sepsis. Monitor serial lft Appreciate surgery's evaluation. No plan for surgery at this time. Low suspicion for acute cholecystitis 9. Hypothyroidism continue Synthroid 10. Anemia. Monitor H&H 11. Mineral bone disorder will monitor calcium phosphorus levels 12. h/o tongue cancer with resection 13. History of diastolic heart failure/coronary disease -Continue medical management 14. Leukocytosis. -Etiology is likely secondary sepsis, steroids. -Slowly improving as steroids are being weaned down - Follow-up with infectious disease. 15. Hypomagnesemia. Continue to monitor and replete as needed I spent greater than 40 minutes of critical care time with this pt Problems: Subjective 24 Hr Interval Summary Free Text/Dictation Patient remains critical but stable. Was seen by neurologist yesterday. Patient's urine output has been marginal. Discussed with the patient's at bedside. Patient is starting to show some improved movement. Still not following commands Exam/Review of Systems Vital Signs Vitals Vital Signs Date Time Temp Pulse Resp B/P Pulse Ox O2 Delivery O2 Flow Rate FiO2 04/16/17 07:18 98.4 04/16/17 07:00 102 28 102/71 99 Mechanical Ventilator 04/16/17 05:26 35 04/12/17 08:00 Intake and Output 04/15/17 04/15/17 04/16/17 15:00 23:00 07:00 Intake Total 912.0 ml 922.0 ml 675.0 ml Output Total 610 ml 335 ml 240 ml Balance 302.0 ml 587.0 ml 435.0 ml Exam HEENT: Head is normocephalic. NECK: Supple. HEART: Regular rate. LUNGS: Show diminished breath sounds at base. ABDOMEN: Soft, nontender to palpation without rebound or guarding. EXTREMITIES: Negative for clubbing, cyanosis. Positive edema, improving. DERMATOLOGIC: No rashes. MUSCULOSKELETAL: No joint effusions. NEUROLOGIC: No change in exam. Results Result Diagram: 04/16/17 0500 04/16/17 0500 Results 24 hrs Laboratory Tests Test 04/15/17 12:00 04/15/17 12:06 04/15/17 17:45 04/16/17 00:01 Vancomycin Level Trough 14.1 Bedside Glucose 119 89 119 Test 04/16/17 05:00 04/16/17 05:40 White Blood Count 37.0 H Red Blood Count 2.84 L Hemoglobin 9.7 L Hematocrit 29.5 L Mean Corpuscular Volume 103.9 H Mean Corpuscular Hemoglobin 34.2 H Mean Corpuscular Hemoglobin Concent 32.9 Red Cell Distribution Width 14.6 H Platelet Count 144 Mean Platelet Volume 11.2 H Neutrophils % Monocytes % Eosinophils % Basophils % Neutrophils # Monocytes # Eosinophils # Basophils # Sodium Level 137 Potassium Level 3.1 L Chloride Level 108 Carbon Dioxide Level 22 Anion Gap 10 # Blood Urea Nitrogen 43 H Creatinine 1.31 H Glucose Level 114 Calcium Level 8.4 Phosphorus Level 3.1 Magnesium Level 2.1 Bedside Glucose 132 Medications Medications Current Medications Enoxaparin Sodium 40 mg 40 mg DAILY SC Last administered on 04/15/17t 09:30; Admin Dose 40 MG; Start 04/12/17 at 09:00 Norepinephrine/ Dextrose (Levophed/D5W) 500 ml @ 0 mls/hr TITRATE IV Last administered on 04/14/17 10:24; Admin Dose 18.75 MLS/HR; Start 04/11/17 at 12:30 Aspirin (Aspirin) 325 mg DAILY NGT Last administered on 04/15/17 09:26; Admin Dose 325 MG; Start 04/12/17 at 09:00 Metoprolol Tartrate (Lopressor) 25 mg BID NGT Last administered on 04/15/17 21: 56; Admin Dose 25 MG; Start 04/11/17 at 21:00 Metoprolol Tartrate (Lopressor) 5 mg Q4H PRN IV HR>110 Hold SBP<110; Start at 13:30 Lansoprazole 30 mg 30 mg DAILY GTB Last administered on 04/15/17 09:26; Admin Dose 30 MG; Start 04/12/17 at 09:00 Phenylephrine HCl/ Dextrose (Chuy-Syneph/D5W) 500 ml @ 0 mls/hr TITRATE IV Last administered on 04/12/17 02:52; Admin Dose 75 MLS/HR; Start 04/11/17 at 16:00 Miscellaneous Information 1 ea NOTE XX ; Start 04/11/17 at 16:30 Glucose (Glutose) 15 gm Q15M PRN PO DECREASED GLUCOSE; Start 04/11/17 at 16:30 Glucose (Glutose) 22.5 gm Q15M PRN PO DECREASED GLUCOSE; Start 04/11/17 at 16: 30 Dextrose (D50w Syringe) 25 ml Q15M PRN IV DECREASED GLUCOSE Last administered on 04/12/17 23:56; Admin Dose 25 ML; Start 04/11/17 at 16:30 Dextrose (D50w Syringe) 50 ml Q15M PRN IV DECREASED GLUCOSE; Start 04/11/17 at 16:30 Glucagon (Glucagen) 1 mg Q15M PRN IM DECREASED GLUCOSE; Start 04/11/17 at 16:30 Glucose 15 gm 15 gm Q15M PRN BUCCAL DECREASED GLUCOSE; Start 04/11/17 at 16:30 Midazolam HCl 50 ml @ 1 mls/hr TITRATE IV Last administered on 04/13/17 04:30; Admin Dose 2 MLS/HR; Start 04/11/17 at 23:30 Fentanyl (Sublimaze) 100 ml @ 0.5 mls/hr TITRATE IV Last administered on 06:26; Admin Dose 0.5 MLS/HR; Start 04/12/17 at 09:30 Vancomycin HCl 125 mg 125 mg Q6 PO Last administered on 04/16/17 05:35; Admin Dose 125 MG; Start 04/12/17 at 12:00 Vancomycin HCl (Vancocin) 250 ml @ 125 mls/hr Q36H IVPB Last administered on 14:47; Admin Dose 125 MLS/HR; Start 04/14/17 at 01:00 Metoclopramide HCl 10 mg 10 mg Q6 IV Last administered on 04/16/17 05:34; Admin Dose 10 MG; Start 04/12/17 at 18:00 Azithromycin 500 mg/Sodium Chloride 250 ml @ 250 mls/hr Q24H IVPB Last administered on 04/15/17 11:52; Admin Dose 250 MLS/HR; Start 04/13/17 at 12:00 Meropenem (Merrem 1 Gm/100 ml (Pmx)) 100 ml @ 200 mls/hr Q8 IVPB Last administered on 04/16/17 05:34; Admin Dose 200 MLS/HR; Start 04/13/17 at 14:00 Hydrocortisone (Solu-Cortef) 50 mg TID IV Last administered on 04/15/17 21:14; Admin Dose 50 MG; Start 04/14/17 at 21:00 Insulin Aspart (Novolog Insulin Pen) NOVOLOG *MILD* ALGORI... Q6H SC ; Start 04/15/17 at 00:00 Furosemide (Lasix) 20 mg DAILY IV ; Start 04/16/17 at 09:00 Metronidazole (Flagyl) 500 mg Q8 NGT Last administered on 04/16/17 05:34; Admin Dose 500 MG; Start 04/15/17 at 14:00 IV Flush (NS 10 ml) 10 ml PRN PRN IV FLUSH LINE; Start 04/15/17 at 13:00 NINA MACIEL DO Apr 16, 2017 07:29
--- NOTE | 2017-04-16 07:44 | PN ---
Date/Time of Note Date/Time of Note DATE: 04/16/17 TIME: 07:42 Assessment/Plan VTE Prophylaxis VTE Prophylaxis Intervention: other Lines/Catheters IV Catheter Type (from Nrs): PICC Line Central line still needed: Yes Urinary Cath still in place: Yes Reason Cath still needed: other (indicate) Assessment/Plan Chief Complaint/Hosp Course 1. acute on chronic hypoxemic respiratory failure: s/p intubation on vent. 2. NSTEMI: due to demand ischemia. 3. CHF: due to diastolic heart failure 4. moderate 5. Arrhythmia and P afib, frequent PVC. 6. ANEMIA 7. pneumonia 8. s/p sepsis and shock on levophed drip now. cont ASA vent support and abx as per PULM Team. correct lytes prn cont ICU care. betablocker as long as BP is stable and is able to tolerate it. thyroid supplement . will closely monitor in ICU. s/p amiodarone drip. will start po amiodarone. replace lytes including K US UE to r/o DVT. Problems: Subjective 24 Hr Interval Summary Free Text/Dictation D/W staff and , rhythm was reviewed. pt remains in NSR but with frequent PAC, PVC. SHE had another episode of Afib today but back to NSR now. pt remains intubated on vent in ICU. nonverbal d/w . Objective: General: Intubated on vent in ICU HEENT: NC/AT. eyes are closed. . NECK: NO JVD. no stridor. s/p previous trach with dressing covering it. CV: RRR. systolic ejection murmur; no gallop or rubs. PULM: no wheezing or rhonchi. GI: SOFT, NT, ND, no rebound or guarding s/p PEG Extremity: trace B/L LE edema. no clubbing. neuro: sedated Psych: calm rectal: deferred Derm: multiple echymosis EXTREMITY: + B/L UE edema. Exam/Review of Systems Vital Signs Vitals Vital Signs Date Time Temp Pulse Resp B/P Pulse Ox O2 Delivery O2 Flow Rate FiO2 04/16/17 07:18 98.4 04/16/17 07:00 102 28 102/71 99 Mechanical Ventilator 04/16/17 05:26 35 04/12/17 08:00 Intake and Output 04/15/17 04/15/17 04/16/17 14:59 22:59 06:59 Intake Total 903.5 ml 920.5 ml 675.0 ml Output Total 610 ml 375 ml 245 ml Balance 293.5 ml 545.5 ml 430.0 ml Results Result Diagram: 04/16/17 0500 04/16/17 0500 Results 24 hrs Laboratory Tests Test 04/15/17 12:00 04/15/17 12:06 04/15/17 17:45 04/16/17 00:01 Vancomycin Level Trough 14.1 Bedside Glucose 119 89 119 Test 04/16/17 05:00 04/16/17 05:40 White Blood Count 37.0 H Red Blood Count 2.84 L Hemoglobin 9.7 L Hematocrit 29.5 L Mean Corpuscular Volume 103.9 H Mean Corpuscular Hemoglobin 34.2 H Mean Corpuscular Hemoglobin Concent 32.9 Red Cell Distribution Width 14.6 H Platelet Count 144 Mean Platelet Volume 11.2 H Neutrophils % Monocytes % Eosinophils % Basophils % Neutrophils # Monocytes # Eosinophils # Basophils # Sodium Level 137 Potassium Level 3.1 L Chloride Level 108 Carbon Dioxide Level 22 Anion Gap 10 # Blood Urea Nitrogen 43 H Creatinine 1.31 H Glucose Level 114 Calcium Level 8.4 Phosphorus Level 3.1 Magnesium Level 2.1 Bedside Glucose 132 Medications Medications Current Medications Enoxaparin Sodium 40 mg 40 mg DAILY SC Last administered on 04/15/17 09:30; Admin Dose 40 MG; Start 04/12/17 at 09:00 Norepinephrine/ Dextrose (Levophed/D5W) 500 ml @ 0 mls/hr TITRATE IV Last administered on 04/14/17 10:24; Admin Dose 18.75 MLS/HR; Start 04/11/17 at 12:30 Aspirin (Aspirin) 325 mg DAILY NGT Last administered on 04/15/17 09:26; Admin Dose 325 MG; Start 04/12/17 at 09:00 Metoprolol Tartrate (Lopressor) 25 mg BID NGT Last administered on 04/15/17 21: 56; Admin Dose 25 MG; Start 04/11/17 at 21:00 Metoprolol Tartrate (Lopressor) 5 mg Q4H PRN IV HR>110 Hold SBP<110; Start at 13:30 Lansoprazole 30 mg 30 mg DAILY GTB Last administered on 04/15/17 09:26; Admin Dose 30 MG; Start 04/12/17 at 09:00 Phenylephrine HCl/ Dextrose (Chuy-Syneph/D5W) 500 ml @ 0 mls/hr TITRATE IV Last administered on 04/12/17 02:52; Admin Dose 75 MLS/HR; Start 04/11/17 at 16:00 Miscellaneous Information 1 ea NOTE XX ; Start 04/11/17 at 16:30 Glucose (Glutose) 15 gm Q15M PRN PO DECREASED GLUCOSE; Start 04/11/17 at 16:30 Glucose (Glutose) 22.5 gm Q15M PRN PO DECREASED GLUCOSE; Start 04/11/17 at 16: 30 Dextrose (D50w Syringe) 25 ml Q15M PRN IV DECREASED GLUCOSE Last administered on 04/12/17 23:56; Admin Dose 25 ML; Start 04/11/17 at 16:30 Dextrose (D50w Syringe) 50 ml Q15M PRN IV DECREASED GLUCOSE; Start 04/11/17 at 16:30 Glucagon (Glucagen) 1 mg Q15M PRN IM DECREASED GLUCOSE; Start 04/11/17 at 16:30 Glucose 15 gm 15 gm Q15M PRN BUCCAL DECREASED GLUCOSE; Start 04/11/17 at 16:30 Midazolam HCl 50 ml @ 1 mls/hr TITRATE IV Last administered on 04/13/17 04:30; Admin Dose 2 MLS/HR; Start 04/11/17 at 23:30 Fentanyl (Sublimaze) 100 ml @ 0.5 mls/hr TITRATE IV Last administered on 06:26; Admin Dose 0.5 MLS/HR; Start 04/12/17 at 09:30 Vancomycin HCl 125 mg 125 mg Q6 PO Last administered on 04/16/17 05:35; Admin Dose 125 MG; Start 04/12/17 at 12:00 Vancomycin HCl (Vancocin) 250 ml @ 125 mls/hr Q36H IVPB Last administered on 14:47; Admin Dose 125 MLS/HR; Start 04/14/17 at 01:00 Metoclopramide HCl 10 mg 10 mg Q6 IV Last administered on 04/16/17 05:34; Admin Dose 10 MG; Start 04/12/17 at 18:00 Azithromycin 500 mg/Sodium Chloride 250 ml @ 250 mls/hr Q24H IVPB Last administered on 04/15/17 11:52; Admin Dose 250 MLS/HR; Start 04/13/17 at 12:00 Meropenem (Merrem 1 Gm/100 ml (Pmx)) 100 ml @ 200 mls/hr Q8 IVPB Last administered on 04/16/17 05:34; Admin Dose 200 MLS/HR; Start 04/13/17 at 14:00 Hydrocortisone (Solu-Cortef) 50 mg TID IV Last administered on 04/15/17 21:14; Admin Dose 50 MG; Start 04/14/17 at 21:00 Insulin Aspart (Novolog Insulin Pen) NOVOLOG *MILD* ALGORI... Q6H SC ; Start 04/15/17 at 00:00 Furosemide (Lasix) 20 mg DAILY IV ; Start 04/16/17 at 09:00 Metronidazole (Flagyl) 500 mg Q8 NGT Last administered on 04/16/17 05:34; Admin Dose 500 MG; Start 04/15/17 at 14:00 IV Flush (NS 10 ml) 10 ml PRN PRN IV FLUSH LINE; Start 04/15/17 at 13:00 FRANCISCO BLACKWOOD MD Apr 16, 2017 07:43
--- NOTE | 2017-04-16 08:30 | PN ---
Date/Time of Note Date/Time of Note DATE: 04/16/17 TIME: 08:16 Assessment/Plan Lines/Catheters IV Catheter Type (from [facility]): PICC Line Mims in Place (from [facility]): Yes Assessment/Plan Chief Complaint/Hosp Course 1. Cholelithiasis with cholecystitis: ischemic bowel Ct abd: sludge and small stones in the gallbladder. No gallbladder wall thickening is noted with some pericholecystic fluid is present. Patient on pressors; OGT no output; HIDA positive; tolerating tube feedings -No surgical intervention required at this time -percutaneous cholecystostomy drain - will continue to monitor 2. Pneumonia: Recurrent; no fevers; intubated; less secretions per ; CXR 04/14: Continued patchy infiltrates throughout both lungs. Infiltrates in the right lower lobe appear to have mildly decreased. Stable small right pleural effusion. sputum cx: PSEUDOMONAS AERUGINOSA, K PNEUMO ESBL, NASRIN GLABRATA -Pulmonary toilet -abx 3. Vent dependent respiratory failure: 2/2 aspiration PNA+ CHF, Patient became tachycardic when attempted to wean yesterday -as above -wean as patient condition permits 4. Septic shock: Off pressors; afebrile overnight; sptum culture positive -on abx -supportive 5. Uncontrolled Afib: s/p amiodarone drip, 1 episode of rapid afib overnight -medical optimization -lovenox 6. Elevated troponin:NSTEMI; septic shock/demand ischemia; tachycardic, coming down -trend 7. Leukocytosis with lactic acidosis: 2/2 pneumonia vs. steroids vs. other ( urine, blood cultures negative); wbc improving; lactic acid stable -on abx -judicious fluid management -steroid taper 8. KEYONNA: likely 2/2 septic shock; mims with good output; Cr going up -judicious fluid management -per nephro 9. CHF: -judicious fluid management -medical optimization 10. Adrenal Insufficiency: was on steroids previously 11. Hypomagnesemia: improved -electrolyte optimization -monitor for cardiac abnormalities 12. Hypothyroidism -cont. synthroid 13. Anemia: chronic vs. dilutional vs. acute bleed; stable -monitor -Transfuse as needed 14. Transaminitis: likely 2/2 septic shock vs. cholecystitis -trend, monitor 15. Diarrhea: 2/2 abx vs. enteritis: resolved -start probiotics -stool cultures 16. Thrombocytosis: 2/2 inflammatory vs. drug induced vs. other -monitor -bleeding precautions -supportive 17. Encephalopathy: 2/2 toxic metabolic vs. anoxic injury; CT: No acute intracranial hemorrhage or mass effect. Mild chronic microvascular disease and intracranial atherosclerosis. -supportive -eeg pending Patient seen and examined in collaboration with Dr. Justus Antonio Problems: Subjective 24 Hr Interval Summary Patient afebrile. Tolerating tube feedings without n/v/d. Off pressors, BP stable. On episode of rapid afib overnight. Now back in sinus rhythm. Intubated , non-responsive. Decreased oral secretions. No sz Exam/Review of Systems Vital Signs Vitals Vital Signs Date Time Temp Pulse Resp B/P Pulse Ox O2 Delivery O2 Flow Rate FiO2 04/16/17 11:00 95 28 118/63 100 Mechanical Ventilator 04/16/17 08:00 35 04/16/17 07:18 98.4 04/12/17 08:00 Intake and Output 04/15/17 04/15/17 04/16/17 15:00 23:00 07:00 Intake Total 912.0 ml 922.0 ml 675.0 ml Output Total 610 ml 335 ml 240 ml Balance 302.0 ml 587.0 ml 435.0 ml Exam Free Text/Dictation Constitutional: other (unresponsive, sedated), well developed Head: atraumatic, normocephalic Eyes: PERRL, nl lids, nl sclera ENMT: intubated (ET tube), No mucosa pink and moist (pink and dry) Neck: non-tender, supple Respiratory: diminished Cardiovascular: nl pulses, regular rate and rhythm Gastrointestinal: bowel sounds (hypoactive), non-tender, soft, GT tubes site no erythema, no drainage No distended, No rebound or guarding Genitourinary - Female: nl external genitalia Musculoskeletal: nl extremities to inspection Extremities: normal pulses, No edema Neurological: unresponsive Skin: nl turgor, No rash or lesions Lymph: nl lymph nodes Results Result Diagram: 04/16/17 0500 04/16/17 0500 ADDISON FREGOSO NP Apr 16, 2017 08:28 ADDISON FREGOSO NP Apr 16, 2017 08:28
[2017-04-16] MEDS: ENOXAPARIN 40 MG/0.4 ML SYG SC SCH (08:44)
[2017-04-16] MEDS: LANSOPRAZOLE 30 MG CAP GTB SCH (08:45)
[2017-04-16] MEDS: ASPIRIN 325 MG TAB NGT SCH (08:45)
[2017-04-16] MEDS: METOPROLOL 25 MG TAB NGT SCH ×2 (08:45→21:24)
[2017-04-16] MEDS: HYDROCORTISONE 100 MG INJ IV SCH ×3 (08:45→21:23)
[2017-04-16 09:47] LABS: BURR CELLS 1+; LYMPHOCYTES # 0.7 10^3/ul (0.8-2.9); MONOCYTE # 0.7 10^3/ul (0.3-0.9); MYELOCYTES # 0.7; NEUTROPHIL # 33.7 10^3/ul (1.6-7.5)
[2017-04-16] MEDS ORDERED: CASPOFUNGIN 70 MG in SOD CHLORIDE 0.9% 250 ML IVPB ONE (10:00)
[2017-04-16] MEDS: FUROSEMIDE 20 MG INJ IV SCH (10:06)
--- NOTE | 2017-04-16 10:20 | CONS ---
Date/Time of Note Date/Time of Note DATE: 04/16/17 TIME: 10:18 Consult Date/Type/Reason Admit Date/Time Apr 11, 2017 at 11:28 Initial Consult Date 04/12/17 Type of Consultation: Pulmonary Ordering Provider: NINA MACIEL DO Subjective Appears more alert today opens eyes but not consistently following commands. Objective Vital Signs Date Time Temp Pulse Resp B/P Pulse Ox O2 Delivery O2 Flow Rate FiO2 04/16/17 09:30 98 28 131/79 99 Mechanical Ventilator 04/16/17 08:00 35 04/16/17 07:18 98.4 04/12/17 08:00 Intake and Output 04/15/17 04/15/17 04/16/17 15:00 23:00 07:00 Intake Total 912.0 ml 922.0 ml 675.0 ml Output Total 610 ml 335 ml 240 ml Balance 302.0 ml 587.0 ml 435.0 ml Exam PHYSICAL EXAMINATION GENERAL: Elderly lady intubated on mechanical ventilation VITAL SIGNS: see below. HEENT: Pupils equal, round, and reactive to light CARDIAC: S1, S2, 1/6 systolic ejection murmur CHEST: Diminished air entry bilaterally. ABDOMEN: Mildly distended. Bowel sounds present no guarding or rebound EXTREMITIES: No cyanosis, clubbing edema +1 NEUROLOGIC: Generalized weakness Results/Medications Result Diagram: 04/16/17 0500 04/16/17 0500 Results 24 hrs Laboratory Tests Test 04/15/17 12:00 04/15/17 12:06 04/15/17 17:45 04/16/17 00:01 Vancomycin Level Trough 14.1 Bedside Glucose 119 89 119 Test 04/16/17 05:00 04/16/17 05:40 White Blood Count 37.0 H Red Blood Count 2.84 L Hemoglobin 9.7 L Hematocrit 29.5 L Mean Corpuscular Volume 103.9 H Mean Corpuscular Hemoglobin 34.2 H Mean Corpuscular Hemoglobin Concent 32.9 Red Cell Distribution Width 14.6 H Platelet Count 144 Mean Platelet Volume 11.2 H Neutrophils % 91.0 H Band Neutrophils % 2.0 Lymphocytes % 2.0 L Monocytes % 2.0 Eosinophils % Basophils % Metamyelocytes % 1.0 H Myelocytes % 2.0 H Neutrophils # 33.7 H Lymphocytes # 0.7 L Monocytes # 0.7 Eosinophils # Basophils # Metamyelocytes # 0.4 Myelocytes # 0.7 Sodium Level 137 Potassium Level 3.1 L Chloride Level 108 Carbon Dioxide Level 22 Anion Gap 10 # Blood Urea Nitrogen 43 H Creatinine 1.31 H Glucose Level 114 Calcium Level 8.4 Phosphorus Level 3.1 Magnesium Level 2.1 Bedside Glucose 132 Medications Current Medications Enoxaparin Sodium 40 mg 40 mg DAILY SC Last administered on 04/16/17 08:44; Admin Dose 40 MG; Start 04/12/17 at 09:00 Norepinephrine/ Dextrose (Levophed/D5W) 500 ml @ 0 mls/hr TITRATE IV Last administered on 04/14/17 10:24; Admin Dose 18.75 MLS/HR; Start 04/11/17 at 12:30 Aspirin (Aspirin) 325 mg DAILY NGT Last administered on 04/16/17 08:45; Admin Dose 325 MG; Start 04/12/17 at 09:00 Metoprolol Tartrate (Lopressor) 25 mg BID NGT Last administered on 04/16/17 08: 45; Admin Dose 25 MG; Start 04/11/17 at 21:00 Metoprolol Tartrate (Lopressor) 5 mg Q4H PRN IV HR>110 Hold SBP<110; Start at 13:30 Lansoprazole 30 mg 30 mg DAILY GTB Last administered on 04/16/17 08:45; Admin Dose 30 MG; Start 04/12/17 at 09:00 Phenylephrine HCl/ Dextrose (Chuy-Syneph/D5W) 500 ml @ 0 mls/hr TITRATE IV Last administered on 04/12/17 02:52; Admin Dose 75 MLS/HR; Start 04/11/17 at 16:00 Miscellaneous Information 1 ea NOTE XX ; Start 04/11/17 at 16:30 Glucose (Glutose) 15 gm Q15M PRN PO DECREASED GLUCOSE; Start 04/11/17 at 16:30 Glucose (Glutose) 22.5 gm Q15M PRN PO DECREASED GLUCOSE; Start 04/11/17 at 16: 30 Dextrose (D50w Syringe) 25 ml Q15M PRN IV DECREASED GLUCOSE Last administered on 04/12/17 23:56; Admin Dose 25 ML; Start 04/11/17 at 16:30 Dextrose (D50w Syringe) 50 ml Q15M PRN IV DECREASED GLUCOSE; Start 04/11/17 at 16:30 Glucagon (Glucagen) 1 mg Q15M PRN IM DECREASED GLUCOSE; Start 04/11/17 at 16:30 Glucose 15 gm 15 gm Q15M PRN BUCCAL DECREASED GLUCOSE; Start 04/11/17 at 16:30 Midazolam HCl 50 ml @ 1 mls/hr TITRATE IV Last administered on 04/13/17 04:30; Admin Dose 2 MLS/HR; Start 04/11/17 at 23:30 Fentanyl (Sublimaze) 100 ml @ 0.5 mls/hr TITRATE IV Last administered on 06:26; Admin Dose 0.5 MLS/HR; Start 04/12/17 at 09:30 Vancomycin HCl 125 mg 125 mg Q6 PO Last administered on 04/16/17 05:35; Admin Dose 125 MG; Start 04/12/17 at 12:00 Vancomycin HCl (Vancocin) 250 ml @ 125 mls/hr Q36H IVPB Last administered on 14:47; Admin Dose 125 MLS/HR; Start 04/14/17 at 01:00 Metoclopramide HCl 10 mg 10 mg Q6 IV Last administered on 04/16/17 05:34; Admin Dose 10 MG; Start 04/12/17 at 18:00 Meropenem (Merrem 1 Gm/100 ml (Pmx)) 100 ml @ 200 mls/hr Q8 IVPB Last administered on 04/16/17 05:34; Admin Dose 200 MLS/HR; Start 04/13/17 at 14:00 Hydrocortisone (Solu-Cortef) 50 mg TID IV Last administered on 04/16/17 08:45; Admin Dose 50 MG; Start 04/14/17 at 21:00 Insulin Aspart (Novolog Insulin Pen) NOVOLOG *MILD* ALGORI... Q6H SC ; Start 04/15/17 at 00:00 Furosemide (Lasix) 20 mg DAILY IV Last administered on 04/16/17 10:06; Admin Dose 20 MG; Start 04/16/17 at 09:00 Metronidazole (Flagyl) 500 mg Q8 NGT Last administered on 04/16/17 05:34; Admin Dose 500 MG; Start 04/15/17 at 14:00 IV Flush (NS 10 ml) 10 ml PRN PRN IV FLUSH LINE; Start 04/15/17 at 13:00 Potassium Chloride 20 meq 20 meq ONCE ONCE GTB ; Start 04/16/17 at 12:00; Stop 04/16/17 at 12:01 Caspofungin 50 mg/ Sodium Chloride 250 ml @ 250 mls/hr Q24H IVPB ; Start at 10:00 Caspofungin 70 mg/ Sodium Chloride 250 ml @ 250 mls/hr ONCE ONCE IVPB ; Start 04/16/17 at 10:00; Stop 04/16/17 at 10:59 Ciprofloxacin/ Dextrose (Cipro Ivpb) 200 ml @ 200 mls/hr Q12 IVPB ; Start at 21:00 Assessment/Plan Chief Complaint/Hosp Course IMP: 1. Septic Shock--likely due to multilobar aspiration pneumonia vs. HCAP 2. Multifocal pneumonia aspiration vs. HCAP 3. Respiratory Failure 4. Status post lactic acidosis. Persistent leukocytosis, improved today 5. Demand Ischemia 6. Gall Stones--HIDA scan findings noted 7. Encephalopathy unclear etiology. CT head unremarkable. Probably toxic metabolic RECS: 1. IVF's 2. Aspiration precautions 3. Continue antibiotics per primary team and infectious diseases 4. Vent--V-AC with rate 28; Vt 450 PEEP 5, weaning trials once neurologically improved 5. Decrease sedation as tolerated 6. Advance tube feeding as tolerated 7. Neurology recommendations 8. Possible percutaneous drainage of gallbladder Discussed with patient's at bedside. Critical care time 40 minutes. Overall prognosis is guarded at the patient's neurological status does not improve we will have to have a discussion about goals of care need for tracheostomy and G-tube placement. Problems: DARWIN CRAWFORD MD, [facility] Apr 16, 2017 10:20
--- NOTE | 2017-04-16 12:35 | CONS ---
Date/Time of Note Date/Time of Note DATE: 04/16/17 TIME: 12:32 Assessment/Plan Assessment/Plan Chief Complaint/Hosp Course No acute events overnight, patient is off sedation, withdraws to pain, moves extremities. No fevers. at bedside Vital signs temperature 98.2 pulse 95 respirations 28 blood pressure 118/63 saturation 100 on vent WBC 37 H&H 9.7 29.5 platelets 144 neutrophils 91 bands Bun 43 creatinine 1.31 Indwelling's endotracheal tube bag Latif PICC line Antimicrobials: Vancomycin meropenem ciprofloxacin Cancidas Flagyl Microbiology: Sputum culture grew multidrug-resistant pseudomonas aeruginosa intermittently susceptible to imipenem, Klebsiella pneumonia ESBL and Ramonita glabrata Physical examination: Well-developed, fragile elderly woman who is in no distress. Head atraumatic, normocephalic. Sclerae nonicteric neck is supple, trachea midline. Chest rise symmetrical, breath sounds diminished basis. Abdomen soft, bowel tones present. Extremities without cyanosis, trace edema. Assessment: 1. Severe sepsis, status post shock 2. Acute on chronic respiratory failure likely secondary to aspiration event 3. Healthcare associated pneumonia 4. Leukocytosis, patient had been on Solu-Cortef since admission 5. Diarrhea with a history of C. difficile colitis, on empiric Flagyl 6. 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 Gallstones possible acute cholecystitis 10. Acute encephalopathy, possibly anoxic Plan: Hemodynamically stable, antibiotics were adjusted, patient is seen by surgery, pending IR cholecystostomy catheter placement, continue vent management as per pulmonary team Discussed with Discussed with RN Problems: Consultation Date/Type/Reason Admit Date/Time Apr 11, 2017 at 11:28 Initial Consult Date 04/12/17 Type of Consultation: ID Referring Provider: NINA MACIEL DO Exam/Review of Systems Vital Signs Vitals Vital Signs Date Time Temp Pulse Resp B/P Pulse Ox O2 Delivery O2 Flow Rate FiO2 04/16/17 11:45 98.2 04/16/17 11:30 104 28 133/67 99 Mechanical Ventilator 04/16/17 08:00 35 04/12/17 08:00 Intake and Output 04/15/17 04/15/17 04/16/17 15:00 23:00 07:00 Intake Total 912.0 ml 922.0 ml 675.0 ml Output Total 610 ml 335 ml 240 ml Balance 302.0 ml 587.0 ml 435.0 ml Results Result Diagram: 04/16/17 0500 04/16/17 0500 Results 24 hrs Laboratory Tests Test 04/15/17 17:45 04/16/17 00:01 04/16/17 05:00 04/16/17 05:40 Bedside Glucose 89 119 132 White Blood Count 37.0 H Red Blood Count 2.84 L Hemoglobin 9.7 L Hematocrit 29.5 L Mean Corpuscular Volume 103.9 H Mean Corpuscular Hemoglobin 34.2 H Mean Corpuscular Hemoglobin Concent 32.9 Red Cell Distribution Width 14.6 H Platelet Count 144 Mean Platelet Volume 11.2 H Neutrophils % 91.0 H Band Neutrophils % 2.0 Lymphocytes % 2.0 L Monocytes % 2.0 Eosinophils % Basophils % Metamyelocytes % 1.0 H Myelocytes % 2.0 H Neutrophils # 33.7 H Lymphocytes # 0.7 L Monocytes # 0.7 Eosinophils # Basophils # Metamyelocytes # 0.4 Myelocytes # 0.7 Sodium Level 137 Potassium Level 3.1 L Chloride Level 108 Carbon Dioxide Level 22 Anion Gap 10 # Blood Urea Nitrogen 43 H Creatinine 1.31 H Glucose Level 114 Calcium Level 8.4 Phosphorus Level 3.1 Magnesium Level 2.1 Test 04/16/17 11:33 Bedside Glucose 107 Medications Medications Current Medications Enoxaparin Sodium 40 mg 40 mg DAILY SC Last administered on 04/16/17 08:44; Admin Dose 40 MG; Start 04/12/17 at 09:00 Norepinephrine/ Dextrose (Levophed/D5W) 500 ml @ 0 mls/hr TITRATE IV Last administered on 04/14/17 10:24; Admin Dose 18.75 MLS/HR; Start 04/11/17 at 12:30 Aspirin (Aspirin) 325 mg DAILY NGT Last administered on 04/16/17 08:45; Admin Dose 325 MG; Start 04/12/17 at 09:00 Metoprolol Tartrate (Lopressor) 25 mg BID NGT Last administered on 04/16/17 08: 45; Admin Dose 25 MG; Start 04/11/17 at 21:00 Metoprolol Tartrate (Lopressor) 5 mg Q4H PRN IV HR>110 Hold SBP<110; Start at 13:30 Lansoprazole 30 mg 30 mg DAILY GTB Last administered on 04/16/17 08:45; Admin Dose 30 MG; Start 04/12/17 at 09:00 Phenylephrine HCl/ Dextrose (Chuy-Syneph/D5W) 500 ml @ 0 mls/hr TITRATE IV Last administered on 04/12/17 02:52; Admin Dose 75 MLS/HR; Start 04/11/17 at 16:00 Miscellaneous Information 1 ea NOTE XX ; Start 04/11/17 at 16:30 Glucose (Glutose) 15 gm Q15M PRN PO DECREASED GLUCOSE; Start 04/11/17 at 16:30 Glucose (Glutose) 22.5 gm Q15M PRN PO DECREASED GLUCOSE; Start 04/11/17 at 16: 30 Dextrose (D50w Syringe) 25 ml Q15M PRN IV DECREASED GLUCOSE Last administered on 04/12/17 23:56; Admin Dose 25 ML; Start 04/11/17 at 16:30 Dextrose (D50w Syringe) 50 ml Q15M PRN IV DECREASED GLUCOSE; Start 04/11/17 at 16:30 Glucagon (Glucagen) 1 mg Q15M PRN IM DECREASED GLUCOSE; Start 04/11/17 at 16:30 Glucose 15 gm 15 gm Q15M PRN BUCCAL DECREASED GLUCOSE; Start 04/11/17 at 16:30 Midazolam HCl 50 ml @ 1 mls/hr TITRATE IV Last administered on 04/13/17 04:30; Admin Dose 2 MLS/HR; Start 04/11/17 at 23:30 Fentanyl (Sublimaze) 100 ml @ 0.5 mls/hr TITRATE IV Last administered on 06:26; Admin Dose 0.5 MLS/HR; Start 04/12/17 at 09:30 Vancomycin HCl (Vancomycin Oral Syringe) 125 mg Q6 PO Last administered on 11:28; Admin Dose 125 MG; Start 04/12/17 at 12:00 Metoclopramide HCl (Reglan) 10 mg Q6 IV Last administered on 04/16/17 11:28; Admin Dose 10 MG; Start 04/12/17 at 18:00 Insulin Aspart (Novolog Insulin Pen) NOVOLOG *MILD* ALGORI... Q6H SC ; Start 04/15/17 at 00:00 Furosemide (Lasix) 20 mg DAILY IV Last administered on 04/16/17 10:06; Admin Dose 20 MG; Start 04/16/17 at 09:00 Metronidazole (Flagyl) 500 mg Q8 NGT Last administered on 04/16/17 05:34; Admin Dose 500 MG; Start 04/15/17 at 14:00 IV Flush 10 ml 10 ml PRN PRN IV FLUSH LINE; Start 04/15/17 at 13:00 Caspofungin 50 mg/ Sodium Chloride 250 ml @ 250 mls/hr Q24H IVPB ; Start at 10:00 Ciprofloxacin/ Dextrose (Cipro Ivpb) 200 ml @ 200 mls/hr Q12 IVPB ; Start at 21:00 Hydrocortisone 25 mg 25 mg TID IV ; Start 04/16/17 at 13:00 Meropenem 100 ml @ 200 mls/hr Q12 IVPB ; Start 04/16/17 at 21:00 Vancomycin HCl/ Sodium Chloride (Vancocin/NS) 150 ml @ 75 mls/hr Q36H IVPB ; Start 04/17/17 at 01:00 LORETO MCKEON NP Apr 16, 2017 12:35
[2017-04-16] MEDS: AMIODARONE 200 MG TAB GTB SCH ×2 (13:17→21:23)
[2017-04-16] MEDS: DILTIAZEM 25 MG INJ IV PRN (13:25)
--- NOTE | 2017-04-16 13:32 | CONS ---
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 Pt. has been set up for biliary drain. BP stable so reducing hydrocortisone from 50 mg IV q8 to 25 mg IV q8 but may need to increase dose again post-biliary procedure. Will monitor for clinical status. Consultation Date/Type/Reason Admit Date/Time Apr 11, 2017 at 11:28 Initial Consult Date 04/14/17 Type of Consultation: Endocrinology Reason for Consultation Adrenal insufficiency Referring Provider: NINA MACIEL DO 24 HR Interval Summary Subjective hx not possible: pt non-verbal, pt critical status Exam/Review of Systems Vital Signs Vitals VS - Last 72 Hours, by Label Date Time Temp Pulse Resp B/P Pulse Ox O2 Delivery O2 Flow Rate FiO2 04/16/17 13:00 151 24 130/79 100 Mechanical Ventilator 04/16/17 12:00 35 04/16/17 12:00 98 25 100 Mechanical Ventilator 04/16/17 11:45 98.2 04/16/17 11:30 104 28 133/67 99 Mechanical Ventilator 04/16/17 11:00 95 28 118/63 100 Mechanical Ventilator 04/16/17 10:30 123 28 101/63 98 Mechanical Ventilator 04/16/17 10:00 98 28 144/94 100 Mechanical Ventilator 04/16/17 09:30 98 28 131/79 99 Mechanical Ventilator 04/16/17 09:00 96 28 125/71 100 Mechanical Ventilator 04/16/17 08:30 97 28 125/65 100 Mechanical Ventilator 04/16/17 08:00 109 28 155/85 100 Mechanical Ventilator 04/16/17 08:00 35 04/16/17 08:00 103 04/16/17 07:30 98 28 129/84 100 Mechanical Ventilator 04/16/17 07:18 98.4 04/16/17 07:00 102 28 102/71 99 Mechanical Ventilator 04/16/17 06:00 92 25 92/63 99 Mechanical Ventilator 04/16/17 05:26 107 30 98 35 04/16/17 05:15 103 20 95 04/16/17 05:00 103 28 108/65 97 Mechanical Ventilator 04/16/17 05:00 103 28 108/65 97 Mechanical Ventilator 04/16/17 04:45 122 28 102/69 98 Mechanical Ventilator 17 04:30 170 28 137/97 100 Mechanical Ventilator 04/16/17 04:15 187 28 183/99 98 Mechanical Ventilator 17 04:00 96 17 04:00 98.3 117 20 193/106 100 Mechanical Ventilator 04/16/17 03:18 111 28 99 35 //17 03:00 92 28 148/86 99 Mechanical Ventilator 17 02:00 97 28 83/54 100 Mechanical Ventilator 04/16/17 01:23 97 28 99 35 04/16/17 01:00 101 28 109/70 99 Mechanical Ventilator 04/16/17 00:00 98.1 98 28 118/74 100 Mechanical Ventilator 04/16/17 00:00 110 04/15/17 23:12 96 28 100 35 04/15/17 23:00 98 28 140/81 100 Mechanical Ventilator 04/15/17 22:00 116 29 161/106 100 Mechanical Ventilator 04/15/17 21:24 105 28 100 35 04/15/ 21:00 98 28 152/87 99 Mechanical Ventilator 04/15/17 20:00 35 //17 20:00 100 04/15/17 20:00 98.2 105 13 126/88 100 Mechanical Ventilator 04/15/17 19:55 104 28 100 35 //17 19:00 100 28 120/84 100 04/15/17 18:00 87 28 117/74 100 04/15/17 17:00 97.8 98 28 112/68 100 04/15/17 16:50 89 28 100 35 04/15/17 16:00 95 04/15/17 16:00 93 28 118/70 100 04/15/17 15:00 92 28 106/75 100 7/4/17 15:00 103 28 100 35 7/4/17 14:00 96 28 130/82 100 4/17 13:45 96 28 100 35 7/4/17 13:00 92 28 111/75 100 7/4/17 12:00 109 04/15/17 12:00 98.0 111 26 138/79 100 74/17 11:45 99 28 100 35 7/4/17 11:00 112 22 170/94 100 4/17 10:00 92 28 124/65 100 7/4/17 09:35 101 28 100 35 7/4/17 09:00 95 28 86/58 100 7/17 08:00 106 28 100 35 7/4/17 08:00 35 7/4/17 08:00 105 7 08:00 97.8 105 28 180/87 100 Mechanical Ventilator 17 07:00 88 28 96/70 100 Mechanical Ventilator 04/15/17 06:00 97 28 136/73 100 Mechanical Ventilator 04/15/17 05:00 94 28 105/66 100 Mechanical Ventilator 04/15/17 04:00 93 04/15/17 04:00 97.8 28 120/77 100 Mechanical Ventilator 04/15/17 03:35 90 28 100 35 04/15/ 03:30 92 28 83/60 100 Mechanical Ventilator 04/15/17 03:22 101 28 100 35 // 03:00 95 25 117/83 100 Mechanical Ventilator 04/15/17 02:30 93 28 120/71 100 Mechanical Ventilator 04/15/17 02:00 100 28 165/104 100 Mechanical Ventilator 04/15/17 01:30 90 28 90/60 100 Mechanical Ventilator 04/15/17 01:27 89 28 100 35 04/15/17 01:00 89 28 87/61 100 Mechanical Ventilator 04/15/17 00:30 89 25 103/77 100 Mechanical Ventilator 04/15/17 00:00 93 04/15/17 00:00 98.8 93 28 140/92 100 Mechanical Ventilator 04/14/17 23:32 88 28 100 35 7/3/17 23:30 96 26 145/96 100 Mechanical Ventilator 73/17 23:00 90 26 92/71 100 Mechanical Ventilator 04/14/17 22:30 92 28 120/73 100 Mechanical Ventilator 73/17 22:00 93 28 142/80 100 Mechanical Ventilator 7/3/17 21:33 90 28 100 35 7/3/17 21:30 91 28 108/76 100 Mechanical Ventilator 7/3/17 21:00 95 28 144/80 100 Mechanical Ventilator 7/3/17 20:30 88 28 85/62 100 Mechanical Ventilator 7/3/17 20:00 88 3/17 20:00 98.0 90 28 103/68 100 Mechanical Ventilator 7/3/17 20:00 35 7/3/17 19:39 90 28 100 35 7/3/17 19:30 95 28 129/84 100 Mechanical Ventilator 7/3/17 19:00 89 28 98/66 100 Mechanical Ventilator 7/3/17 18:00 94 28 87/69 100 Mechanical Ventilator 7/3/17 17:30 92 28 99/68 100 Mechanical Ventilator 7/3/17 17:10 98 28 100 35 7/3/17 17:00 98.0 99 28 113/83 100 Mechanical Ventilator 7/3/17 16:30 110 7/3/17 15:30 104 28 152/107 99 Mechanical Ventilator 7/3/17 15:00 127 28 100 35 7/3/17 15:00 125 28 140/112 98 Mechanical Ventilator 7/3/17 14:30 120 28 114/82 98 Mechanical Ventilator 7/3/17 14:00 125 28 97/74 98 Mechanical Ventilator 7/3/17 13:30 127 29 119/90 98 Mechanical Ventilator 7/3/17 13:25 112 28 100 35 7/3/17 13:15 122 28 114/82 98 Mechanical Ventilator 7/3/17 13:00 126 29 97/71 98 Mechanical Ventilator 7/3/17 12:30 119 28 81/61 99 Mechanical Ventilator 7/3/17 12:15 107 28 110/92 99 Mechanical Ventilator 7/3/17 12:00 121 7/3/17 12:00 123 28 99/80 100 Mechanical Ventilator 7/3/17 11:45 128 28 138/104 100 Mechanical Ventilator 7/3/17 11:30 131 32 133/86 100 Mechanical Ventilator 7/3/17 11:15 98.8 135 33 174/123 97 Mechanical Ventilator 7/3/17 11:00 133 28 155/107 99 Mechanical Ventilator 7/3/17 10:45 125 29 161/112 100 Mechanical Ventilator 7/3/17 10:45 96 28 100 35 7/3/17 10:30 104 28 131/97 98 Mechanical Ventilator 7/3/17 10:15 121 28 104/75 96 Mechanical Ventilator 7/3/17 10:00 108 28 104/83 92 Mechanical Ventilator 7/3/17 09:45 89 28 60/52 97 Mechanical Ventilator 7/3/17 09:15 120 28 92/75 96 Mechanical Ventilator 7/3/17 09:00 116 28 69/54 96 Mechanical Ventilator 7/3/17 08:50 115 28 98 35 7/3/17 08:45 121 28 86/62 100 Mechanical Ventilator 7/3/17 08:30 146 31 161/118 100 Mechanical Ventilator 7/3/17 08:00 143 7/3/17 08:00 143 29 171/158 100 Mechanical Ventilator 7/3/17 07:50 157 28 100 35 7/3/17 07:30 35 7/3/17 07:30 128 28 127/90 100 Mechanical Ventilator 7/3/17 07:15 141 28 85/57 100 Mechanical Ventilator 7/3/17 07:00 139 28 139/109 100 Mechanical Ventilator 7/3/17 06:45 98.4 140 25 159/100 98 Mechanical Ventilator 7/3/17 06:30 135 21 130/94 98 Mechanical Ventilator 7/3/17 06:15 136 28 123/90 97 Mechanical Ventilator 7/3/17 06:00 142 30 131/87 100 Mechanical Ventilator 7/3/17 05:45 136 29 145/132 100 Mechanical Ventilator 7/3/17 05:45 151 29 100 35 7/3/17 05:30 149 28 123/81 100 Mechanical Ventilator 7/3/17 05:15 142 29 149/118 100 Mechanical Ventilator 7/3/17 05:00 131 28 142/123 100 Mechanical Ventilator 7/3/17 04:30 154 28 161/110 100 Mechanical Ventilator 7/3/17 04:15 132 28 105/78 100 Mechanical Ventilator 7/3/17 04:00 98.4 133 28 85/64 100 Mechanical Ventilator 7/3/17 04:00 129 7/3/17 03:45 140 28 113/73 100 Mechanical Ventilator 7/3/17 03:30 151 28 170/109 100 Mechanical Ventilator 7/3/17 03:15 137 28 111/95 100 Mechanical Ventilator 7/3/17 03:10 131 28 100 35 7/3/17 03:00 152 28 115/74 100 Mechanical Ventilator 7/3/17 02:45 140 28 111/70 100 Mechanical Ventilator 7/3/17 02:30 125 28 155/99 100 Mechanical Ventilator 7/3/17 02:15 150 28 123/83 100 Mechanical Ventilator 7/3/17 02:00 157 28 100 Mechanical Ventilator 7/3/17 01:45 149 26 92/74 100 Mechanical Ventilator 7/3/17 01:35 151 28 100 35 7/3/17 01:30 157 26 133/86 99 Mechanical Ventilator 7/3/17 01:15 143 26 95/77 99 Mechanical Ventilator 7/3/17 01:00 144 26 92/71 98 Mechanical Ventilator 7/3/17 00:45 154 26 96/75 97 Mechanical Ventilator 7/3/17 00:15 140 29 110/72 98 Mechanical Ventilator 7/3/17 00:00 98.4 147 28 99/75 100 Mechanical Ventilator 7/3/17 00:00 124 7/2/17 23:40 152 28 100 35 7/2/17 23:30 137 29 107/71 100 Mechanical Ventilator 7/2/17 23:15 151 28 103/77 100 Mechanical Ventilator 7/2/17 23:00 158 26 128/86 100 Mechanical Ventilator 7/2/17 22:45 132 30 92/64 100 Mechanical Ventilator 7/2/17 22:30 157 26 108/80 100 Mechanical Ventilator 7/2/17 22:15 144 23 117/89 100 Mechanical Ventilator 7/2/17 22:00 132 22 98/73 100 Mechanical Ventilator 7/2/17 21:45 138 22 90/62 100 Mechanical Ventilator 7/2/17 21:30 140 22 86/64 100 Mechanical Ventilator 7/2/17 21:24 136 28 100 35 7/2/17 21:15 140 22 85/63 100 Mechanical Ventilator 7/2/17 21:00 142 22 93/75 100 Mechanical Ventilator 7/2/17 20:45 137 22 90/57 99 Mechanical Ventilator 7/2/17 20:30 142 22 106/67 100 Mechanical Ventilator 7/2/17 20:15 122 15 93/63 99 Mechanical Ventilator 7/2/17 20:14 35 7/2/17 20:00 98.4 153 21 104/62 99 Mechanical Ventilator 7/2/17 20:00 145 7/2/17 19:50 157 29 100 35 7/2/17 19:45 170 34 138/105 100 Mechanical Ventilator 7/2/17 19:30 153 16 120/81 100 Mechanical Ventilator 7/2/17 19:15 149 17 113/76 99 Mechanical Ventilator 7/2/17 19:00 145 25 92/60 98 Mechanical Ventilator 7/2/17 18:45 161 28 116/75 97 Mechanical Ventilator 04/13/17 18:30 185 25 101/60 98 Mechanical Ventilator 04/13/17 18:24 182 04/13/17 18:15 131 28 148/83 98 Mechanical Ventilator 04/13/17 18:00 124 28 98 Mechanical Ventilator 04/13/17 17:45 123 12 135/81 99 Mechanical Ventilator 04/13/17 17:30 120 28 98 35 04/13/17 17:30 120 13 109/69 98 Mechanical Ventilator 04/13/17 17:15 122 15 121/77 98 Mechanical Ventilator 04/13/17 17:00 122 28 121/76 98 Mechanical Ventilator 04/13/17 16:45 122 28 128/75 98 Mechanical Ventilator 04/13/17 16:30 120 28 117/73 98 Mechanical Ventilator 04/13/17 16:15 123 28 123/71 98 Mechanical Ventilator 04/13/17 16:00 98.6 123 28 125/73 98 Mechanical Ventilator 04/13/17 16:00 123 04/13/17 15:45 122 28 109/68 98 Mechanical Ventilator 04/13/17 15:30 125 28 99 35 04/13/17 15:30 122 28 109/64 98 Mechanical Ventilator 04/13/17 15:15 126 28 141/79 100 Mechanical Ventilator 04/13/17 15:00 121 28 95/54 97 Mechanical Ventilator 04/13/17 14:45 121 28 102/61 98 Mechanical Ventilator 04/13/17 14:30 120 28 106/59 99 Mechanical Ventilator 04/13/17 14:15 120 28 110/61 98 Mechanical Ventilator 04/13/17 14:00 125 28 130/69 99 Mechanical Ventilator Vital Signs Date Time Temp Pulse Resp B/P Pulse Ox O2 Delivery O2 Flow Rate FiO2 04/16/17 13:00 151 24 130/79 100 Mechanical Ventilator 04/16/17 12:00 35 04/16/17 11:45 98.2 04/12/17 08:00 Intake and Output 04/15/17 04/15/17 04/16/17 15:00 23:00 07:00 Intake Total 912.0 ml 922.0 ml 675.0 ml Output Total 610 ml 335 ml 240 ml Balance 302.0 ml 587.0 ml 435.0 ml Exam Constitutional: alert, non-verbal ENMT: intubated Respiratory: clear to auscultation, normal air movement Cardiovascular: irregular rhythm, murmurs/extra sounds, nl pulses, No edema, No regular rate and rhythm, No rub Gastrointestinal: bowel sounds, firm, nl liver, spleen, non-tender, No rebound or guarding Musculoskeletal: nl extremities to inspection Extremities: normal pulses, No clubbing, No cyanosis, No edema Neurological: lethargic Additional Comments Bedside Glucose - 72 Hours Test 04/13/17 13:40 04/13/17 17:47 04/13/17 21:42 04/14/17 01:42 Bedside Glucose 112mg/dL (70-220) 128mg/dL (70-220) 141mg/dL (70-220) 151mg/dL (70-220) Test 04/14/17 05:17 04/14/17 08:12 04/14/17 12:27 04/14/17 18:01 Bedside Glucose 117mg/dL (70-220) 134mg/dL (70-220) 135mg/dL (70-220) 116mg/dL (70-220) Test 04/14/17 23:31 04/15/17 05:35 04/15/17 12:06 04/15/17 17:45 Bedside Glucose 100mg/dL (70-220) 102mg/dL (70-220) 119mg/dL (70-220) 89mg/dL (70-220) Test 04/16/17 00:01 04/16/17 05:40 04/16/17 11:33 Bedside Glucose 119mg/dL (70-220) 132mg/dL (70-220) 107mg/dL (70-220) Results Result Diagram: 04/16/17 0500 04/16/17 0500 Results 24 hrs Laboratory Tests Test 04/15/17 17:45 04/16/17 00:01 04/16/17 05:00 04/16/17 05:40 Bedside Glucose 89 119 132 White Blood Count 37.0 H Red Blood Count 2.84 L Hemoglobin 9.7 L Hematocrit 29.5 L Mean Corpuscular Volume 103.9 H Mean Corpuscular Hemoglobin 34.2 H Mean Corpuscular Hemoglobin Concent 32.9 Red Cell Distribution Width 14.6 H Platelet Count 144 Mean Platelet Volume 11.2 H Neutrophils % 91.0 H Band Neutrophils % 2.0 Lymphocytes % 2.0 L Monocytes % 2.0 Eosinophils % Basophils % Metamyelocytes % 1.0 H Myelocytes % 2.0 H Neutrophils # 33.7 H Lymphocytes # 0.7 L Monocytes # 0.7 Eosinophils # Basophils # Metamyelocytes # 0.4 Myelocytes # 0.7 Sodium Level 137 Potassium Level 3.1 L Chloride Level 108 Carbon Dioxide Level 22 Anion Gap 10 # Blood Urea Nitrogen 43 H Creatinine 1.31 H Glucose Level 114 Calcium Level 8.4 Phosphorus Level 3.1 Magnesium Level 2.1 Test 04/16/17 11:33 Bedside Glucose 107 Medications Medications Current Medications Enoxaparin Sodium 40 mg 40 mg DAILY SC Last administered on 04/16/17 08:44; Admin Dose 40 MG; Start 04/12/17 at 09:00 Norepinephrine/ Dextrose (Levophed/D5W) 500 ml @ 0 mls/hr TITRATE IV Last administered on 04/14/17 10:24; Admin Dose 18.75 MLS/HR; Start 04/11/17 at 12:30 Aspirin (Aspirin) 325 mg DAILY NGT Last administered on 04/16/17 08:45; Admin Dose 325 MG; Start 04/12/17 at 09:00 Metoprolol Tartrate (Lopressor) 25 mg BID NGT Last administered on 04/16/17 08: 45; Admin Dose 25 MG; Start 04/11/17 at 21:00 Metoprolol Tartrate (Lopressor) 5 mg Q4H PRN IV HR>110 Hold SBP<110; Start at 13:30 Lansoprazole 30 mg 30 mg DAILY GTB Last administered on 04/16/17 08:45; Admin Dose 30 MG; Start 04/12/17 at 09:00 Phenylephrine HCl/ Dextrose (Chuy-Syneph/D5W) 500 ml @ 0 mls/hr TITRATE IV Last administered on 04/12/17 02:52; Admin Dose 75 MLS/HR; Start 04/11/17 at 16:00 Miscellaneous Information 1 ea NOTE XX ; Start 04/11/17 at 16:30 Glucose (Glutose) 15 gm Q15M PRN PO DECREASED GLUCOSE; Start 04/11/17 at 16:30 Glucose (Glutose) 22.5 gm Q15M PRN PO DECREASED GLUCOSE; Start 04/11/17 at 16: 30 Dextrose (D50w Syringe) 25 ml Q15M PRN IV DECREASED GLUCOSE Last administered on 04/12/17 23:56; Admin Dose 25 ML; Start 04/11/17 at 16:30 Dextrose (D50w Syringe) 50 ml Q15M PRN IV DECREASED GLUCOSE; Start 04/11/17 at 16:30 Glucagon (Glucagen) 1 mg Q15M PRN IM DECREASED GLUCOSE; Start 04/11/17 at 16:30 Glucose 15 gm 15 gm Q15M PRN BUCCAL DECREASED GLUCOSE; Start 04/11/17 at 16:30 Midazolam HCl 50 ml @ 1 mls/hr TITRATE IV Last administered on 04/13/17 04:30; Admin Dose 2 MLS/HR; Start 04/11/17 at 23:30 Fentanyl (Sublimaze) 100 ml @ 0.5 mls/hr TITRATE IV Last administered on 06:26; Admin Dose 0.5 MLS/HR; Start 04/12/17 at 09:30 Vancomycin HCl (Vancomycin Oral Syringe) 125 mg Q6 PO Last administered on 11:28; Admin Dose 125 MG; Start 04/12/17 at 12:00 Metoclopramide HCl (Reglan) 10 mg Q6 IV Last administered on 04/16/17 11:28; Admin Dose 10 MG; Start 04/12/17 at 18:00 Insulin Aspart (Novolog Insulin Pen) NOVOLOG *MILD* ALGORI... Q6H SC ; Start 04/15/17 at 00:00 Furosemide (Lasix) 20 mg DAILY IV Last administered on 04/16/17 10:06; Admin Dose 20 MG; Start 04/16/17 at 09:00 Metronidazole (Flagyl) 500 mg Q8 NGT Last administered on 04/16/17 13:03; Admin Dose 500 MG; Start 04/15/17 at 14:00 IV Flush 10 ml 10 ml PRN PRN IV FLUSH LINE; Start 04/15/17 at 13:00 Ciprofloxacin/ Dextrose (Cipro Ivpb) 200 ml @ 200 mls/hr Q12 IVPB ; Start at 21:00 Hydrocortisone 25 mg 25 mg TID IV Last administered on 04/16/17 12:56; Admin Dose 25 MG; Start 04/16/17 at 13:00 Meropenem 100 ml @ 200 mls/hr Q12 IVPB ; Start 04/16/17 at 21:00 Vancomycin HCl 750 mg/Sodium Chloride 150 ml @ 75 mls/hr Q36H IVPB ; Start 04/17 at 01:00 Caspofungin/ Sodium Chloride (Cancidas/NS) 250 ml @ 250 mls/hr Q24H IVPB ; Start 04/17/17 at 10:00 Amiodarone HCl (Cordarone) 200 mg BID GTB Last administered on 04/16/17 13:17; Admin Dose 200 MG; Start 04/16/17 at 13:00 Diltiazem HCl (Cardizem Iv) 5 mg Q1H PRN IV AFIB GREATER THAN 110 Last administered on 04/16/17 13:25; Admin Dose 5 MG; Start 04/16/17 at 13:00 JEAN CISNEROS MD Apr 16, 2017 13:32
--- NOTE | 2017-04-16 13:50 | RADRPT ---
PROCEDURE: US bilateral upper extremity veins. CLINICAL INDICATION: Bilateral upper extremity pain and swelling. TECHNIQUE: Multiple longitudinal and transverse images of the bilateral upper extremity venous jamei e was obtained with oates scale and color Doppler imaging. COMPARISON: None available FINDINGS: The internal jugular, subclavian, axillary, brachial, basilic, cephalic, radial, and ulnar veins are patent bilaterally. There is normal flow with augmentation and compressibility throughout. There i s no thrombus or occlusion. IMPRESSION: 1. Normal venous system of the upper extremities. No evidence of thrombus or occlusion. RPTAT: QQ .Guero Guadalupe MD, MD Date Time Electronically viewed and signed by .Guero Guadalupe MD, MD on 04/16/2017 13:50 .R/
[2017-04-16] MEDS: CIPROFLOXACIN 400MG/D5W 200 ML IVPB SCH (21:24)
[2017-04-17] VITALS (41 sets, daily range): BP systolic 90–168; BP diastolic 54–122; PULSE 91–150; RESP 8–32
[2017-04-17] MEDS ORDERED: DEXTROSE 5%-0.45% NACL 1,000 ML IV SCH
[2017-04-17] MEDS: VANCOMYCIN 750 MG in SOD CHLORIDE 0.9% 150 ML IVPB SCH (01:55)
[2017-04-17] MEDS: FENTAnyl (DRIP) 1000 mcg/100mL 100 ML IV SCH (03:05)
[2017-04-17] MEDS: LEVALBUTEROL (HFA) 15 GM INHALER INH PRN (04:32)
[2017-04-17] MEDS: VANCOMYCIN HCL 250 MG/5ML POSYG PO SCH ×3 (05:25→17:43)
[2017-04-17] MEDS: INSULIN ASPART [NOVOLOG] 3 ML PEN SC SCH ×3 (05:25→18:26)
[2017-04-17] MEDS: LEVOTHYROXINE 75 MCG TAB GTB SCH (05:25)
[2017-04-17] MEDS: metroNIDAZOLE 500 MG TAB NGT SCH ×3 (05:25→22:20)
[2017-04-17] MEDS: METOCLOPRAMIDE 10 MG INJ IV SCH ×3 (05:26→17:43)
[2017-04-17 05:45] LABS: ADD SCAN DIFF NO
[2017-04-17 05:54] LABS: ABNORMAL IP MESSAGE 1; HEMATOCRIT 31.2 % (37.0-47.0); HEMOGLOBIN 10.1 g/dl (12.0-16.0); LYMPHOCYTES # 2.4 10^3/ul (0.8-2.9); LYMPHOCYTES % 5.6 % (15.0-51.0); MEAN CORPUSCULAR HEMOGLOBIN 33.3 pg (29.0-33.0); MEAN CORPUSCULAR HGB CONC 32.4 g/dl (32.0-37.0); MEAN PLATELET VOLUME 11.4 fl (7.4-10.4); MONOCYTE # 1.2 10^3/ul (0.3-0.9); MONOCYTES % 2.7 % (0.0-11.0); NEUTROPHIL # 37.4 10^3/ul (1.6-7.5); NEUTROPHILS % 85.8 % (39.0-77.0); NUCLEATED RED BLOOD CELLS # 0.1 10^3/ul (0.0-0.0); NUCLEATED RED BLOOD CELLS% 0.2 /100WBC (0.0-0.0); PLATELET COUNT 161 10^3/UL (140-415); RED BLOOD COUNT 3.03 10^6/ul (4.20-5.40); RED CELL DISTRIBUTION WIDTH 14.4 % (11.5-14.5); WHITE BLOOD COUNT 43.6 10^3/ul (4.8-10.8)
[2017-04-17 06:55] LABS: ALBUMIN 2.7 g/dl (3.3-4.9); ALBUMIN/GLOBULIN RATIO 1.28; CALCIUM 8.4 mg/dl (8.4-10.2); CREATININE 1.19 mg/dl (0.44-1.00); POTASSIUM 3.6 mmol/L (3.5-5.1); TOTAL PROTEIN 4.8 g/dl (6.1-8.1)
[2017-04-17 06:56] LABS: CALCIUM 8.9 mg/dl (8.4-10.2); CREATININE 1.23 mg/dl (0.44-1.00); POTASSIUM 3.5 mmol/L (3.5-5.1)
--- NOTE | 2017-04-17 07:12 | PN ---
Date/Time of Note Date/Time of Note DATE: 04/17/17 TIME: 07:09 Assessment/Plan VTE Prophylaxis VTE Prophylaxis Intervention: SCD's Lines/Catheters IV Catheter Type (from Nrs): PICC Line Central line still needed: Yes Urinary Cath still in place: Yes Reason Cath still needed: other (indicate) Assessment/Plan Chief Complaint/Hosp Course 1. acute on chronic hypoxemic respiratory failure: s/p intubation on vent. 2. NSTEMI: due to demand ischemia. 3. CHF: due to diastolic heart failure 4. moderate 5. Arrhythmia and P afib, frequent PVC. 6. ANEMIA 7. pneumonia, severe leukocytosis now. 8. s/p sepsis and shock off of levophed drip now. cont ASA vent support and abx as per PULM Team. correct lytes prn cont ICU care. betablocker as long as BP is stable and is able to tolerate it. thyroid supplement . will closely monitor in ICU. s/p amiodarone drip. will cont po amiodarone. replace lytes including K . Problems: Subjective 24 Hr Interval Summary Free Text/Dictation CARDIOLOGY FOLLOW UP: D/W staff , rhythm was reviewed. pt remains in NSR but with frequent PAC, PVC. pt with no more episode of Afib last night. pt remains intubated on vent in ICU. nonverbal Objective: General: Intubated on vent in ICU HEENT: NC/AT. eyes are closed. . NECK: NO JVD. no stridor. s/p previous trach with dressing covering it. CV: RRR. systolic ejection murmur; no gallop or rubs. PULM: no wheezing or rhonchi. GI: SOFT, NT, ND, no rebound or guarding s/p PEG Extremity: trace B/L LE edema. no clubbing. neuro: sedated Psych: calm rectal: deferred Derm: multiple echymosis . Exam/Review of Systems Vital Signs Vitals Vital Signs Date Time Temp Pulse Resp B/P Pulse Ox O2 Delivery O2 Flow Rate FiO2 04/17/17 06:30 95 28 100/54 99 04/17/17 06:00 Mechanical Ventilator 04/17/17 05:19 35 04/17/17 05:00 98.8 Intake and Output 04/16/17 04/16/17 04/17/17 15:00 23:00 07:00 Intake Total 813.0 ml 377 ml 712 ml Output Total 985 ml 1115 ml 405 ml Balance -172.0 ml -738 ml 307 ml Results Result Diagram: 04/17/17 0530 04/17/17 0530 Results 24 hrs Laboratory Tests Test 04/16/17 11:33 04/16/17 17:17 04/16/17 23:40 04/17/17 05:22 Bedside Glucose 107 85 106 119 Test 04/17/17 05:30 White Blood Count 43.6 H Red Blood Count 3.03 L Hemoglobin 10.1 L Hematocrit 31.2 L Mean Corpuscular Volume 103.0 H Mean Corpuscular Hemoglobin 33.3 H Mean Corpuscular Hemoglobin Concent 32.4 Red Cell Distribution Width 14.4 Platelet Count 161 Mean Platelet Volume 11.4 H Neutrophils % 85.8 H Lymphocytes % 5.6 L Monocytes % 2.7 Eosinophils % 0.0 Basophils % 0.0 Nucleated Red Blood Cells % 0.2 H Neutrophils # 37.4 H Lymphocytes # 2.4 Monocytes # 1.2 H Eosinophils # 0.0 Basophils # 0.0 Nucleated Red Blood Cells # 0.1 H Sodium Level 138 Potassium Level 3.6 Chloride Level 109 Carbon Dioxide Level 21 Anion Gap 12 Blood Urea Nitrogen 46 H Creatinine 1.19 H Glucose Level 114 Calcium Level 8.4 Phosphorus Level 3.0 Magnesium Level 2.0 Total Bilirubin 0.0 L Direct Bilirubin 0.00 Indirect Bilirubin 0.0 Aspartate Amino Transf (AST/SGOT) 39 Alanine Aminotransferase (ALT/SGPT) 144 H Alkaline Phosphatase 172 H Total Protein 4.8 L Albumin 2.7 L Globulin 2.10 Albumin/Globulin Ratio 1.28 Medications Medications Current Medications Enoxaparin Sodium 40 mg 40 mg DAILY SC Last administered on 04/16/17 08:44; Admin Dose 40 MG; Start 04/12/17 at 09:00 Norepinephrine/ Dextrose (Levophed/D5W) 500 ml @ 0 mls/hr TITRATE IV Last administered on 04/14/17 10:24; Admin Dose 18.75 MLS/HR; Start 04/11/17 at 12:30 Aspirin (Aspirin) 325 mg DAILY NGT Last administered on 04/16/17 08:45; Admin Dose 325 MG; Start 04/12/17 at 09:00 Metoprolol Tartrate (Lopressor) 25 mg BID NGT Last administered on 04/16/17 21: 24; Admin Dose 25 MG; Start 04/11/17 at 21:00 Metoprolol Tartrate (Lopressor) 5 mg Q4H PRN IV HR>110 Hold SBP<110; Start at 13:30 Lansoprazole 30 mg 30 mg DAILY GTB Last administered on 04/16/17 08:45; Admin Dose 30 MG; Start 04/12/17 at 09:00 Phenylephrine HCl/ Dextrose (Chuy-Syneph/D5W) 500 ml @ 0 mls/hr TITRATE IV Last administered on 04/12/17 02:52; Admin Dose 75 MLS/HR; Start 04/11/17 at 16:00 Miscellaneous Information 1 ea NOTE XX ; Start 04/11/17 at 16:30 Glucose (Glutose) 15 gm Q15M PRN PO DECREASED GLUCOSE; Start 04/11/17 at 16:30 Glucose (Glutose) 22.5 gm Q15M PRN PO DECREASED GLUCOSE; Start 04/11/17 at 16: 30 Dextrose (D50w Syringe) 25 ml Q15M PRN IV DECREASED GLUCOSE Last administered on 04/12/17 23:56; Admin Dose 25 ML; Start 04/11/17 at 16:30 Dextrose (D50w Syringe) 50 ml Q15M PRN IV DECREASED GLUCOSE; Start 04/11/17 at 16:30 Glucagon (Glucagen) 1 mg Q15M PRN IM DECREASED GLUCOSE; Start 04/11/17 at 16:30 Glucose 15 gm 15 gm Q15M PRN BUCCAL DECREASED GLUCOSE; Start 04/11/17 at 16:30 Midazolam HCl 50 ml @ 1 mls/hr TITRATE IV Last administered on 04/13/17 04:30; Admin Dose 2 MLS/HR; Start 04/11/17 at 23:30 Fentanyl (Sublimaze) 100 ml @ 0.5 mls/hr TITRATE IV Last administered on 03:05; Admin Dose 0.5 MLS/HR; Start 04/12/17 at 09:30 Vancomycin HCl (Vancomycin Oral Syringe) 125 mg Q6 PO Last administered on 05:25; Admin Dose 125 MG; Start 04/12/17 at 12:00 Metoclopramide HCl (Reglan) 10 mg Q6 IV Last administered on 04/17/17 05:26; Admin Dose 10 MG; Start 04/12/17 at 18:00 Insulin Aspart (Novolog Insulin Pen) NOVOLOG *MILD* ALGORI... Q6H SC ; Start 04/15/17 at 00:00 Furosemide (Lasix) 20 mg DAILY IV Last administered on 04/16/17 10:06; Admin Dose 20 MG; Start 04/16/17 at 09:00 Metronidazole (Flagyl) 500 mg Q8 NGT Last administered on 04/17/17 05:25; Admin Dose 500 MG; Start 04/15/17 at 14:00 IV Flush 10 ml 10 ml PRN PRN IV FLUSH LINE; Start 04/15/17 at 13:00 Ciprofloxacin/ Dextrose (Cipro Ivpb) 200 ml @ 200 mls/hr Q12 IVPB Last administered on 04/16/17 21:24; Admin Dose 200 MLS/HR; Start 04/16/17 at 21:00 Hydrocortisone 25 mg 25 mg TID IV Last administered on 04/16/17 21:23; Admin Dose 25 MG; Start 04/16/17 at 13:00 Meropenem 100 ml @ 200 mls/hr Q12 IVPB Last administered on 04/16/17 21:24; Admin Dose 200 MLS/HR; Start 04/16/17 at 21:00 Vancomycin HCl 750 mg/Sodium Chloride 150 ml @ 75 mls/hr Q36H IVPB Last administered on 04/17/17 01:55; Admin Dose 75 MLS/HR; Start 04/17/17 at 01:00 Caspofungin/ Sodium Chloride (Cancidas/NS) 250 ml @ 250 mls/hr Q24H IVPB ; Start 04/17/17 at 10:00 Amiodarone HCl (Cordarone) 200 mg BID GTB Last administered on 04/16/17 21:23; Admin Dose 200 MG; Start 04/16/17 at 13:00 Diltiazem HCl 5 mg 5 mg Q1H PRN IV AFIB GREATER THAN 110 Last administered on 13:25; Admin Dose 5 MG; Start 04/16/17 at 13:00 Dextrose/Sodium Chloride (D5-1/2ns) 1,000 ml @ 50 mls/hr Q20H IV Last administered on 04/16/17t 23:34; Admin Dose 50 MLS/HR; Start 04/17/17 at 00:00 FRANCISCO BLACKWOOD MD Apr 17, 2017 07:12
[2017-04-17] MEDS ORDERED: MAGNESIUM SULFATE 2 GM/50 ML 50 ML IVPB ONE (08:00)
[2017-04-17] MEDS ORDERED: POTASSIUM CHLORIDE 20 MEQ POWDER FOR ORAL SOLN JT ONE (08:00)
--- NOTE | 2017-04-17 08:04 | PN ---
Date/Time of Note Date/Time of Note DATE: 04/17/17 TIME: 08:02 Assessment/Plan VTE Prophylaxis VTE Prophylaxis Intervention: other Lines/Catheters IV Catheter Type (from Nrsg): PICC Line Central line still needed: Yes Urinary Cath still in place: Yes Reason Cath still needed: other (indicate) Assessment/Plan Chief Complaint/Hosp Course 1. Nonoliguric keyonna. With previously normal baseline creatinine. Etiology is likely secondary to septic KEYONNA with possible ATN -Renal function has been stable, -Continue treatment plan. Supportive care renally dose meds avoid nephrotoxins -Follow-up renal panel - 2. Sepsis, status post shock. Etiology is likely secondary to aspiration pneumonia, -Patient currently off pressors. Remains on antibiotics - Patient's blood cultures have been reviewed. Continue current treatment plan Follow-up with infectious disease 3. Ventilator dependent respiratory failure. Etiology secondary to pneumonia, CHF . Vent settings, ABG been reviewed. Continue current vent settings follow-up with pulmonary 4. Volume overload. Etiology likely secondary to sepsis capillary leak. Possible diastolic heart failure. -Continue low-dose Lasix 5. Elevated troponin. Possible non-STEMI type II. We will continue to monitor follow-up with cardiology 6. History of adrenal insufficiency. -Patient currently on stress steroids, -Appreciate endocrinology evaluation 7. Acute encephalopathy etiologies toxic metabolic, possible anoxic injury. CT scan showed no acute finding Appreciate Dr. Ellis evaluation -Continue to monitor closely 8. possible acute cholecystitis -Patient's HIDA scan was positive -Plan for cholecystostomy drain placement Appreciate surgery's evaluation. 9. Hypothyroidism continue Synthroid 10. Anemia. Monitor H&H 11. Mineral bone disorder will monitor calcium phosphorus levels 12. h/o tongue cancer with resection 13. History of diastolic heart failure/coronary disease -Continue medical management 14. Leukocytosis. -Etiology is likely secondary sepsis, steroids. -Slowly improving as steroids are being weaned down - Follow-up with infectious disease. 15. Hypomagnesemia. Continue to monitor and replete as needed I spent greater than 40 minutes of critical care time with this pt Problems: Subjective 24 Hr Interval Summary Free Text/Dictation Patient critical but stable. Beginning to awake following commands. Patient's pending possible cholecystostomy drain placement today. No other events noted Exam/Review of Systems Vital Signs Vitals Vital Signs Date Time Temp Pulse Resp B/P Pulse Ox O2 Delivery O2 Flow Rate FiO2 04/17/17 08:00 114 28 152/89 98 Mechanical Ventilator 04/17/17 07:36 98.6 04/17/17 07:30 30 Intake and Output 04/16/17 04/16/17 04/17/17 15:00 23:00 07:00 Intake Total 813.0 ml 377 ml 762 ml Output Total 985 ml 1115 ml 480 ml Balance -172.0 ml -738 ml 282 ml Exam HEENT: Head is normocephalic. NECK: Supple. HEART: Irregular LUNGS: Show diminished breath sounds at base. ABDOMEN: Soft, nontender to palpation without rebound or guarding. EXTREMITIES: Negative for clubbing, cyanosis. Positive edema, DERMATOLOGIC: No rashes. MUSCULOSKELETAL: No joint effusions, NEUROLOGIC: No change in exam. Results Result Diagram: 04/17/1730 04/17/17 0530 Results 24 hrs Laboratory Tests Test 04/16/17 11:33 04/16/17 17:17 04/16/17 23:40 04/17/17 05:22 Bedside Glucose 107 85 106 119 Test 04/17/17 05:30 White Blood Count 43.6 H Red Blood Count 3.03 L Hemoglobin 10.1 L Hematocrit 31.2 L Mean Corpuscular Volume 103.0 H Mean Corpuscular Hemoglobin 33.3 H Mean Corpuscular Hemoglobin Concent 32.4 Red Cell Distribution Width 14.4 Platelet Count 161 Mean Platelet Volume 11.4 H Neutrophils % 85.8 H Lymphocytes % 5.6 L Monocytes % 2.7 Eosinophils % 0.0 Basophils % 0.0 Nucleated Red Blood Cells % 0.2 H Neutrophils # 37.4 H Lymphocytes # 2.4 Monocytes # 1.2 H Eosinophils # 0.0 Basophils # 0.0 Nucleated Red Blood Cells # 0.1 H Sodium Level 138 Potassium Level 3.6 Chloride Level 109 Carbon Dioxide Level 21 Anion Gap 12 Blood Urea Nitrogen 46 H Creatinine 1.19 H Glucose Level 114 Calcium Level 8.4 Phosphorus Level 3.0 Magnesium Level 2.0 Total Bilirubin 0.0 L Direct Bilirubin 0.00 Indirect Bilirubin 0.0 Aspartate Amino Transf (AST/SGOT) 39 Alanine Aminotransferase (ALT/SGPT) 144 H Alkaline Phosphatase 172 H Total Protein 4.8 L Albumin 2.7 L Globulin 2.10 Albumin/Globulin Ratio 1.28 Medications Medications Current Medications Enoxaparin Sodium 40 mg 40 mg DAILY SC Last administered on 04/16/17 08:44; Admin Dose 40 MG; Start 04/12/17 at 09:00 Norepinephrine/ Dextrose (Levophed/D5W) 500 ml @ 0 mls/hr TITRATE IV Last administered on 04/14/17 10:24; Admin Dose 18.75 MLS/HR; Start 04/11/17 at 12:30 Aspirin (Aspirin) 325 mg DAILY NGT Last administered on 04/16/17 08:45; Admin Dose 325 MG; Start 04/12/17 at 09:00 Metoprolol Tartrate (Lopressor) 25 mg BID NGT Last administered on 04/16/17 21: 24; Admin Dose 25 MG; Start 04/11/17 at 21:00 Metoprolol Tartrate (Lopressor) 5 mg Q4H PRN IV HR>110 Hold SBP<110; Start at 13:30 Lansoprazole 30 mg 30 mg DAILY GTB Last administered on 04/16/17 08:45; Admin Dose 30 MG; Start 04/12/17 at 09:00 Phenylephrine HCl/ Dextrose (Chuy-Syneph/D5W) 500 ml @ 0 mls/hr TITRATE IV Last administered on 04/12/17 02:52; Admin Dose 75 MLS/HR; Start 04/11/17 at 16:00 Miscellaneous Information 1 ea NOTE XX ; Start 04/11/17 at 16:30 Glucose (Glutose) 15 gm Q15M PRN PO DECREASED GLUCOSE; Start 04/11/17 at 16:30 Glucose (Glutose) 22.5 gm Q15M PRN PO DECREASED GLUCOSE; Start 04/11/17 at 16: 30 Dextrose (D50w Syringe) 25 ml Q15M PRN IV DECREASED GLUCOSE Last administered on 04/12/17 23:56; Admin Dose 25 ML; Start 04/11/17 at 16:30 Dextrose (D50w Syringe) 50 ml Q15M PRN IV DECREASED GLUCOSE; Start 04/11/17 at 16:30 Glucagon (Glucagen) 1 mg Q15M PRN IM DECREASED GLUCOSE; Start 04/11/17 at 16:30 Glucose 15 gm 15 gm Q15M PRN BUCCAL DECREASED GLUCOSE; Start 04/11/17 at 16:30 Midazolam HCl 50 ml @ 1 mls/hr TITRATE IV Last administered on 04/13/17 04:30; Admin Dose 2 MLS/HR; Start 04/11/17 at 23:30 Fentanyl (Sublimaze) 100 ml @ 0.5 mls/hr TITRATE IV Last administered on 03:05; Admin Dose 0.5 MLS/HR; Start 04/12/17 at 09:30 Vancomycin HCl (Vancomycin Oral Syringe) 125 mg Q6 PO Last administered on 05:25; Admin Dose 125 MG; Start 04/12/17 at 12:00 Metoclopramide HCl (Reglan) 10 mg Q6 IV Last administered on 04/17/17 05:26; Admin Dose 10 MG; Start 04/12/17 at 18:00 Insulin Aspart (Novolog Insulin Pen) NOVOLOG *MILD* ALGORI... Q6H SC ; Start 04/15/17 at 00:00 Furosemide (Lasix) 20 mg DAILY IV Last administered on 04/16/17 10:06; Admin Dose 20 MG; Start 04/16/17 at 09:00 Metronidazole (Flagyl) 500 mg Q8 NGT Last administered on 04/17/17 05:25; Admin Dose 500 MG; Start 04/15/17 at 14:00 IV Flush 10 ml 10 ml PRN PRN IV FLUSH LINE; Start 04/15/17 at 13:00 Ciprofloxacin/ Dextrose (Cipro Ivpb) 200 ml @ 200 mls/hr Q12 IVPB Last administered on 04/16/17 21:24; Admin Dose 200 MLS/HR; Start 04/16/17 at 21:00 Hydrocortisone 25 mg 25 mg TID IV Last administered on 04/16/17 21:23; Admin Dose 25 MG; Start 04/16/17 at 13:00 Meropenem 100 ml @ 200 mls/hr Q12 IVPB Last administered on 04/16/17 21:24; Admin Dose 200 MLS/HR; Start 04/16/17 at 21:00 Vancomycin HCl 750 mg/Sodium Chloride 150 ml @ 75 mls/hr Q36H IVPB Last administered on 04/17/17 01:55; Admin Dose 75 MLS/HR; Start 04/17/17 at 01:00 Caspofungin/ Sodium Chloride (Cancidas/NS) 250 ml @ 250 mls/hr Q24H IVPB ; Start 04/17/17 at 10:00 Amiodarone HCl (Cordarone) 200 mg BID GTB Last administered on 04/16/17 21:23; Admin Dose 200 MG; Start 04/16/17 at 13:00 Diltiazem HCl 5 mg 5 mg Q1H PRN IV AFIB GREATER THAN 110 Last administered on 13:25; Admin Dose 5 MG; Start 04/16/17 at 13:00 Dextrose/Sodium Chloride 1,000 ml @ 50 mls/hr Q20H IV Last administered on 04/16 23:34; Admin Dose 50 MLS/HR; Start 04/17/17 at 00:00 Magnesium Sulfate (Magnesium Sulfate 2 Gm/50 ml) 50 ml @ 25 mls/hr ONCE ONCE IVPB Last administered on 04/17/17 07:57; Admin Dose 25 MLS/HR; Start 04/17/17 at 08:00; Stop 04/17/17 at 09:59 NINA MACIEL DO Apr 17, 2017 08:04
--- NOTE | 2017-04-17 08:22 | PN ---
Date/Time of Note Date/Time of Note DATE: 04/17/17 TIME: 08:02 Assessment/Plan Lines/Catheters IV Catheter Type (from [facility]): PICC Line Mims in Place (from [facility]): Yes Assessment/Plan Chief Complaint/Hosp Course 1. Cholelithiasis with cholecystitis: ischemic bowel Ct abd: sludge and small stones in the gallbladder. No gallbladder wall thickening is noted with some pericholecystic fluid is present. Patient off pressors; OGT no output; HIDA positive; tolerating tube feedings -No surgical intervention required at this time -percutaneous cholecystostomy drain today - will continue to monitor 2. Pneumonia: Recurrent; no fevers; intubated; less secretions; CXR 04/16 Changes of pulmonary vascular congestion and increased interstitial markings. sputum cx : PSEUDOMONAS AERUGINOSA, K PNEUMO ESBL, NASRIN GLABRATA -Pulmonary toilet -antimicrobials per ID -diuresis 3. Vent dependent respiratory failure: 2/2 aspiration PNA+ CHF -as above -wean as patient condition permits 4. Septic shock: Off pressors; afebrile overnight; still tachycardic sputum culture positive; improved -on abx -supportive 5. Uncontrolled Afib: s/p amiodarone drip, Now SR/ST -medical optimization -lovenox 6. Elevated troponin:NSTEMI; septic shock/demand ischemia; tachycardic, coming down -trend 7. Leukocytosis with lactic acidosis: 2/2 pneumonia vs. steroids vs. other ( urine, blood cultures negative); wbc up; lactic acid stable -on abx -judicious fluid management -steroid taper 8. KEYONNA: likely 2/2 septic shock; mims with good output; Cr improving -judicious fluid management -per nephro 9. CHF: -judicious fluid management -medical optimization 10. Adrenal Insufficiency: was on steroids previously -solucortef 11. Hypomagnesemia: normalized -electrolyte optimization -monitor for cardiac abnormalities 12. Hypothyroidism -cont. synthroid 13. Anemia: chronic vs. dilutional vs. acute bleed; stable -monitor -Transfuse as needed 14. Transaminitis: likely 2/2 septic shock vs. cholecystitis; improved -trend, monitor 15. Diarrhea: 2/2 abx vs. enteritis: resolved -start probiotics -stool cultures 16. Thrombocytosis: 2/2 inflammatory vs. drug induced vs. other; normalized -monitor -bleeding precautions -supportive 17. Encephalopathy: 2/2 toxic metabolic vs. anoxic injury; CT: No acute intracranial hemorrhage or mass effect. Mild chronic microvascular disease and intracranial atherosclerosis; more alert and communicative -supportive -eeg pending 18. Bilateral upper extremity edema: likely 2/2 decreased movement vs. thrombosis; Doppler negative -elevate -increase patient mobility as tolerated 19. Hypoalbuminemia: 2/2 malnutrition +/- inflammation; tolerating tube feeds -nutrition optimization -as above Patient seen and examined in collaboration with Dr. Justus Antonio Problems: Subjective 24 Hr Interval Summary More awake and responsive, still on vent and fentanyl. No fevers, now in SR/ST. Comfortable. Requesting board to write to communicate. No c/o metzger, dizziness/ lightheadedness, cough, sob, palpitations, cp, pain, n/v/d. Tolerated tube feedings Exam/Review of Systems Vital Signs Vitals Vital Signs Date Time Temp Pulse Resp B/P Pulse Ox O2 Delivery O2 Flow Rate FiO2 04/17/17 07:36 98.6 04/17/17 07:30 30 04/17/17 07:00 108 28 140/75 96 Mechanical Ventilator Intake and Output 04/16/17 04/16/17 04/17/17 15:00 23:00 07:00 Intake Total 813.0 ml 377 ml 762 ml Output Total 985 ml 1115 ml 480 ml Balance -172.0 ml -738 ml 282 ml Exam Free Text/Dictation Constitutional: other (more responsive but still somnolent, communicative), well developed Head: atraumatic, normocephalic Eyes: PERRL, nl lids, nl sclera ENMT: intubated (ET tube), No mucosa pink and moist (pink and dry) Neck: non-tender, supple Respiratory: diminished Cardiovascular: nl pulses, regular rate and rhythm, NSR/ST Gastrointestinal: bowel sounds (hypoactive), non-tender, soft, GT tubes site no erythema, no drainage mildly distended, No rebound or guarding Genitourinary - Female: nl external genitalia Musculoskeletal: nl extremities to inspection Extremities: normal pulses, min edema Neurological: more responsive Skin: nl turgor, No rash or lesions Lymph: nl lymph nodes Results Result Diagram: 04/17/1752904/17/1730 ADDISON FREGOSO NP Apr 17, 2017 08:21
[2017-04-17] MEDS: LANSOPRAZOLE 30 MG CAP GTB SCH (08:31)
[2017-04-17] MEDS: METOPROLOL 25 MG TAB NGT SCH ×2 (08:31→21:17)
[2017-04-17] MEDS: AMIODARONE 200 MG TAB GTB SCH ×2 (08:31→20:36)
[2017-04-17] MEDS: CIPROFLOXACIN 400MG/D5W 200 ML IVPB SCH ×2 (08:32→21:16)
[2017-04-17] MEDS: HYDROCORTISONE 100 MG INJ IV SCH ×3 (08:32→20:37)
[2017-04-17] MEDS: FUROSEMIDE 20 MG INJ IV SCH (08:32)
[2017-04-17] MEDS: ASPIRIN 325 MG TAB NGT SCH (08:32)
[2017-04-17] MEDS: MEROPENEM 1 GM/100 ML (PMX) 100 ML IVPB SCH ×2 (08:59→20:34)
[2017-04-17] MEDS ORDERED: CASPOFUNGIN 50 MG in SOD CHLORIDE 0.9% 250 ML IVPB SCH (10:00)
[2017-04-17] MEDS: CASPOFUNGIN 35 MG in SOD CHLORIDE 0.9% 250 ML IVPB SCH (10:10)
--- NOTE | 2017-04-17 10:23 | CONS ---
Date/Time of Note Date/Time of Note DATE: 04/17/17 TIME: 10:16 Consult Date/Type/Reason Admit Date/Time Apr 11, 2017 at 11:28 Initial Consult Date 04/12/17 Type of Consultation: Pulmonary Ordering Provider: NINA MACIEL DO Subjective Patient somewhat more alert this morning still with intermittent agitation. Pending CT-guided placement of percutaneous drain. Objective Vital Signs Date Time Temp Pulse Resp B/P Pulse Ox O2 Delivery O2 Flow Rate FiO2 04/17/17 09:00 102 28 102/67 98 Mechanical Ventilator 04/17/17 07:36 98.6 04/17/17 07:30 30 Intake and Output 04/16/17 04/16/17 04/17/17 15:00 23:00 07:00 Intake Total 813.0 ml 377 ml 762 ml Output Total 985 ml 1115 ml 480 ml Balance -172.0 ml -738 ml 282 ml Exam PHYSICAL EXAMINATION GENERAL: Elderly lady intubated on mechanical ventilation VITAL SIGNS: see below. HEENT: Pupils equal, round, and reactive to light CARDIAC: S1, S2, 1/6 systolic ejection murmur CHEST: Diminished air entry bilaterally. ABDOMEN: Mildly distended. Bowel sounds present no guarding or rebound EXTREMITIES: No cyanosis, clubbing edema +1 NEUROLOGIC: Generalized weakness Results/Medications Result Diagram: 04/17/17 0530 04/17/17 0530 Results 24 hrs Laboratory Tests Test 04/16/17 11:33 04/16/17 17:17 04/16/17 23:40 04/17/17 05:22 Bedside Glucose 107 85 106 119 Test 04/17/17 05:30 White Blood Count 43.6 H Red Blood Count 3.03 L Hemoglobin 10.1 L Hematocrit 31.2 L Mean Corpuscular Volume 103.0 H Mean Corpuscular Hemoglobin 33.3 H Mean Corpuscular Hemoglobin Concent 32.4 Red Cell Distribution Width 14.4 Platelet Count 161 Mean Platelet Volume 11.4 H Neutrophils % 85.8 H Lymphocytes % 5.6 L Monocytes % 2.7 Eosinophils % 0.0 Basophils % 0.0 Nucleated Red Blood Cells % 0.2 H Neutrophils # 37.4 H Lymphocytes # 2.4 Monocytes # 1.2 H Eosinophils # 0.0 Basophils # 0.0 Nucleated Red Blood Cells # 0.1 H Sodium Level 138 Potassium Level 3.6 Chloride Level 109 Carbon Dioxide Level 21 Anion Gap 12 Blood Urea Nitrogen 46 H Creatinine 1.19 H Glucose Level 114 Calcium Level 8.4 Phosphorus Level 3.0 Magnesium Level 2.0 Total Bilirubin 0.0 L Direct Bilirubin 0.00 Indirect Bilirubin 0.0 Aspartate Amino Transf (AST/SGOT) 39 Alanine Aminotransferase (ALT/SGPT) 144 H Alkaline Phosphatase 172 H Total Protein 4.8 L Albumin 2.7 L Globulin 2.10 Albumin/Globulin Ratio 1.28 Medications Current Medications Norepinephrine/ Dextrose (Levophed/D5W) 500 ml @ 0 mls/hr TITRATE IV Last administered on 04/14/17 10:24; Admin Dose 18.75 MLS/HR; Start 04/11/17 at 12:30 Aspirin (Aspirin) 325 mg DAILY NGT Last administered on 04/17/17 08:32; Admin Dose 325 MG; Start 04/12/17 at 09:00 Metoprolol Tartrate (Lopressor) 25 mg BID NGT Last administered on 04/17/17 08: 31; Admin Dose 25 MG; Start 04/11/17 at 21:00 Metoprolol Tartrate (Lopressor) 5 mg Q4H PRN IV HR>110 Hold SBP<110; Start at 13:30 Lansoprazole 30 mg 30 mg DAILY GTB Last administered on 04/17/17 08:31; Admin Dose 30 MG; Start 04/12/17 at 09:00 Phenylephrine HCl/ Dextrose (Chuy-Syneph/D5W) 500 ml @ 0 mls/hr TITRATE IV Last administered on 04/12/17 02:52; Admin Dose 75 MLS/HR; Start 04/11/17 at 16:00 Miscellaneous Information 1 ea NOTE XX ; Start 04/11/17 at 16:30 Glucose (Glutose) 15 gm Q15M PRN PO DECREASED GLUCOSE; Start 04/11/17 at 16:30 Glucose (Glutose) 22.5 gm Q15M PRN PO DECREASED GLUCOSE; Start 04/11/17 at 16: 30 Dextrose (D50w Syringe) 25 ml Q15M PRN IV DECREASED GLUCOSE Last administered on 04/12/17 23:56; Admin Dose 25 ML; Start 04/11/17 at 16:30 Dextrose (D50w Syringe) 50 ml Q15M PRN IV DECREASED GLUCOSE; Start 04/11/17 at 16:30 Glucagon (Glucagen) 1 mg Q15M PRN IM DECREASED GLUCOSE; Start 04/11/17 at 16:30 Glucose 15 gm 15 gm Q15M PRN BUCCAL DECREASED GLUCOSE; Start 04/11/17 at 16:30 Midazolam HCl 50 ml @ 1 mls/hr TITRATE IV Last administered on 04/13/17 04:30; Admin Dose 2 MLS/HR; Start 04/11/17 at 23:30 Fentanyl (Sublimaze) 100 ml @ 0.5 mls/hr TITRATE IV Last administered on 03:05; Admin Dose 0.5 MLS/HR; Start 04/12/17 at 09:30 Vancomycin HCl (Vancomycin Oral Syringe) 125 mg Q6 PO Last administered on 05:25; Admin Dose 125 MG; Start 04/12/17 at 12:00 Metoclopramide HCl (Reglan) 10 mg Q6 IV Last administered on 04/17/17 05:26; Admin Dose 10 MG; Start 04/12/17 at 18:00 Insulin Aspart (Novolog Insulin Pen) NOVOLOG *MILD* ALGORI... Q6H SC ; Start 04/15/17 at 00:00 Furosemide (Lasix) 20 mg DAILY IV Last administered on 04/17/17 08:32; Admin Dose 20 MG; Start 04/16/17 at 09:00 Metronidazole (Flagyl) 500 mg Q8 NGT Last administered on 04/17/17 05:25; Admin Dose 500 MG; Start 04/15/17 at 14:00 IV Flush 10 ml 10 ml PRN PRN IV FLUSH LINE; Start 04/15/17 at 13:00 Ciprofloxacin/ Dextrose (Cipro Ivpb) 200 ml @ 200 mls/hr Q12 IVPB Last administered on 04/17/17 08:32; Admin Dose 200 MLS/HR; Start 04/16/17 at 21:00 Hydrocortisone 25 mg 25 mg TID IV Last administered on 04/17/17 08:32; Admin Dose 25 MG; Start 04/16/17 at 13:00 Meropenem 100 ml @ 200 mls/hr Q12 IVPB Last administered on 04/17/17 08:59; Admin Dose 200 MLS/HR; Start 04/16/17 at 21:00 Vancomycin HCl 750 mg/Sodium Chloride 150 ml @ 75 mls/hr Q36H IVPB Last administered on 04/17/17 01:55; Admin Dose 75 MLS/HR; Start 04/17/17 at 01:00 Caspofungin/ Sodium Chloride (Cancidas/NS) 250 ml @ 250 mls/hr Q24H IVPB Last administered on 04/17/17 10:10; Admin Dose 250 MLS/HR; Start 04/17/17 at 10:00 Amiodarone HCl (Cordarone) 200 mg BID GTB Last administered on 04/17/17 08:31; Admin Dose 200 MG; Start 04/16/17 at 13:00 Diltiazem HCl 5 mg 5 mg Q1H PRN IV AFIB GREATER THAN 110 Last administered on 13:25; Admin Dose 5 MG; Start 04/16/17 at 13:00 Dextrose/Sodium Chloride (D5-1/2ns) 1,000 ml @ 50 mls/hr Q20H IV Last administered on 04/16/17 23:34; Admin Dose 50 MLS/HR; Start 04/17/17 at 00:00 Enoxaparin Sodium (Lovenox) 40 mg HS SC ; Start 04/17/17 at 21:00 Assessment/Plan Chief Complaint/Hosp Course IMP: 1. Septic Shock--likely due to multilobar aspiration pneumonia vs. HCAP 2. Multifocal pneumonia aspiration vs. HCAP 3. Respiratory Failure 4. Status post lactic acidosis. Persistent leukocytosis, improved today 5. Demand Ischemia 6. Cholecystitis, pending percutaneous drainage 7. Encephalopathy unclear etiology. CT head unremarkable. Probably toxic metabolic RECS: 1. IVF's 2. Aspiration precautions 3. Continue antibiotics per primary team and infectious diseases 4. Vent--V-AC with rate 28; Vt 450 PEEP 5, hold weaning for now is ongoing surgical issues 5. Decrease sedation as tolerated 6. Advance tube feeding as tolerated 7. Neurology recommendations 8. Percutaneous drainage of gallbladder, surgical recommendations Critical care time 40 minutes. Problems: DARWIN CRAWFORD MD, [facility] Apr 17, 2017 10:22
--- NOTE | 2017-04-17 10:45 | CONS ---
Date/Time of Note Date/Time of Note DATE: 04/17/17 TIME: 10:43 Assessment/Plan Assessment/Plan Problems: (1) Steroid dependence Status: Chronic Comment: Patient is on replacement dose steroids and actually stress doses due to the current situation. Once the percutaneous drain is in for the gallbladder issues her dosages may be tapered down. This can be done over 48 hours. She will need stress doses again when she ultimately is cleared enough to have the gallbladder surgery done. Consultation Date/Type/Reason Admit Date/Time Apr 11, 2017 at 11:28 Initial Consult Date 04/14/17 Type of Consultation: Endocrinology Reason for Consultation Steroid dependence/adrenal insufficiency; septic shock; cholelithiasis with cholecystitis; ventilator dependent respiratory failure Referring Provider: NINA MACIEL DO 24 HR Interval Summary Subjective hx not possible: pt critical status Exam/Review of Systems Vital Signs Vitals Vital Signs Date Time Temp Pulse Resp B/P Pulse Ox O2 Delivery O2 Flow Rate FiO2 04/17/17 10:00 92 28 101/68 99 Mechanical Ventilator 04/17/17 07:36 98.6 04/17/17 07:30 30 Intake and Output 04/16/17 04/16/17 04/17/17 15:00 23:00 07:00 Intake Total 813.0 ml 377 ml 762 ml Output Total 985 ml 1115 ml 480 ml Balance -172.0 ml -738 ml 282 ml Exam Constitutional: alert Respiratory: clear to auscultation, normal air movement Cardiovascular: nl pulses, regular rate and rhythm Results Result Diagram: 04/17/17 0530 04/17/17 0530 Results 24 hrs Laboratory Tests Test 04/16/17 11:33 04/16/17 17:17 04/16/17 23:40 04/17/17 05:22 Bedside Glucose 107 85 106 119 Test 04/17/17 05:30 White Blood Count 43.6 H Red Blood Count 3.03 L Hemoglobin 10.1 L Hematocrit 31.2 L Mean Corpuscular Volume 103.0 H Mean Corpuscular Hemoglobin 33.3 H Mean Corpuscular Hemoglobin Concent 32.4 Red Cell Distribution Width 14.4 Platelet Count 161 Mean Platelet Volume 11.4 H Neutrophils % 85.8 H Lymphocytes % 5.6 L Monocytes % 2.7 Eosinophils % 0.0 Basophils % 0.0 Nucleated Red Blood Cells % 0.2 H Neutrophils # 37.4 H Lymphocytes # 2.4 Monocytes # 1.2 H Eosinophils # 0.0 Basophils # 0.0 Nucleated Red Blood Cells # 0.1 H Sodium Level 138 Potassium Level 3.6 Chloride Level 109 Carbon Dioxide Level 21 Anion Gap 12 Blood Urea Nitrogen 46 H Creatinine 1.19 H Glucose Level 114 Calcium Level 8.4 Phosphorus Level 3.0 Magnesium Level 2.0 Total Bilirubin 0.0 L Direct Bilirubin 0.00 Indirect Bilirubin 0.0 Aspartate Amino Transf (AST/SGOT) 39 Alanine Aminotransferase (ALT/SGPT) 144 H Alkaline Phosphatase 172 H Total Protein 4.8 L Albumin 2.7 L Globulin 2.10 Albumin/Globulin Ratio 1.28 Medications Medications Current Medications Norepinephrine/ Dextrose (Levophed/D5W) 500 ml @ 0 mls/hr TITRATE IV Last administered on 04/14/17 10:24; Admin Dose 18.75 MLS/HR; Start 04/11/17 at 12:30 Aspirin (Aspirin) 325 mg DAILY NGT Last administered on 04/17/17 08:32; Admin Dose 325 MG; Start 04/12/17 at 09:00 Metoprolol Tartrate (Lopressor) 25 mg BID NGT Last administered on 04/17/17 08: 31; Admin Dose 25 MG; Start 04/11/17 at 21:00 Metoprolol Tartrate (Lopressor) 5 mg Q4H PRN IV HR>110 Hold SBP<110; Start at 13:30 Lansoprazole 30 mg 30 mg DAILY GTB Last administered on 04/17/17 08:31; Admin Dose 30 MG; Start 04/12/17 at 09:00 Phenylephrine HCl/ Dextrose (Chuy-Syneph/D5W) 500 ml @ 0 mls/hr TITRATE IV Last administered on 04/12/17 02:52; Admin Dose 75 MLS/HR; Start 04/11/17 at 16:00 Miscellaneous Information 1 ea NOTE XX ; Start 04/11/17 at 16:30 Glucose (Glutose) 15 gm Q15M PRN PO DECREASED GLUCOSE; Start 04/11/17 at 16:30 Glucose (Glutose) 22.5 gm Q15M PRN PO DECREASED GLUCOSE; Start 04/11/17 at 16: 30 Dextrose (D50w Syringe) 25 ml Q15M PRN IV DECREASED GLUCOSE Last administered on 04/12/17 23:56; Admin Dose 25 ML; Start 04/11/17 at 16:30 Dextrose (D50w Syringe) 50 ml Q15M PRN IV DECREASED GLUCOSE; Start 04/11/17 at 16:30 Glucagon (Glucagen) 1 mg Q15M PRN IM DECREASED GLUCOSE; Start 04/11/17 at 16:30 Glucose 15 gm 15 gm Q15M PRN BUCCAL DECREASED GLUCOSE; Start 04/11/17 at 16:30 Midazolam HCl 50 ml @ 1 mls/hr TITRATE IV Last administered on 04/13/17 04:30; Admin Dose 2 MLS/HR; Start 04/11/17 at 23:30 Fentanyl (Sublimaze) 100 ml @ 0.5 mls/hr TITRATE IV Last administered on 03:05; Admin Dose 0.5 MLS/HR; Start 04/12/17 at 09:30 Vancomycin HCl (Vancomycin Oral Syringe) 125 mg Q6 PO Last administered on 05:25; Admin Dose 125 MG; Start 04/12/17 at 12:00 Metoclopramide HCl (Reglan) 10 mg Q6 IV Last administered on 04/17/17 05:26; Admin Dose 10 MG; Start 04/12/17 at 18:00 Insulin Aspart (Novolog Insulin Pen) NOVOLOG *MILD* ALGORI... Q6H SC ; Start 04/15/17 at 00:00 Furosemide (Lasix) 20 mg DAILY IV Last administered on 04/17/17 08:32; Admin Dose 20 MG; Start 04/16/17 at 09:00 Metronidazole (Flagyl) 500 mg Q8 NGT Last administered on 04/17/17 05:25; Admin Dose 500 MG; Start 04/15/17 at 14:00 IV Flush 10 ml 10 ml PRN PRN IV FLUSH LINE; Start 04/15/17 at 13:00 Ciprofloxacin/ Dextrose (Cipro Ivpb) 200 ml @ 200 mls/hr Q12 IVPB Last administered on 04/17/17 08:32; Admin Dose 200 MLS/HR; Start 04/16/17 at 21:00 Hydrocortisone 25 mg 25 mg TID IV Last administered on 04/17/17 08:32; Admin Dose 25 MG; Start 04/16/17 at 13:00 Meropenem 100 ml @ 200 mls/hr Q12 IVPB Last administered on 04/17/17 08:59; Admin Dose 200 MLS/HR; Start 04/16/17 at 21:00 Vancomycin HCl 750 mg/Sodium Chloride 150 ml @ 75 mls/hr Q36H IVPB Last administered on 04/17/17 01:55; Admin Dose 75 MLS/HR; Start 04/17/17 at 01:00 Caspofungin/ Sodium Chloride (Cancidas/NS) 250 ml @ 250 mls/hr Q24H IVPB Last administered on 04/17/17 10:10; Admin Dose 250 MLS/HR; Start 04/17/17 at 10:00 Amiodarone HCl (Cordarone) 200 mg BID GTB Last administered on 04/17/17 08:31; Admin Dose 200 MG; Start 04/16/17 at 13:00 Diltiazem HCl 5 mg 5 mg Q1H PRN IV AFIB GREATER THAN 110 Last administered on 13:25; Admin Dose 5 MG; Start 04/16/17 at 13:00 Dextrose/Sodium Chloride (D5-1/2ns) 1,000 ml @ 50 mls/hr Q20H IV Last administered on 04/16/17 23:34; Admin Dose 50 MLS/HR; Start 04/17/17 at 00:00 Enoxaparin Sodium (Lovenox) 40 mg HS SC ; Start 04/17/17 at 21:00 IZZY TYLER MD Apr 17, 2017 10:44
--- NOTE | 2017-04-17 11:11 | RADRPT ---
Vent Rate: 126 bpm RR Interval: 0 msec [place] Interval: 0 msec QRS Duration: 72 msec QT Interval: 306 msec QTC Interval: 443 msec P-R-T [place]: 0 - 44 - 0 degrees Atrial fibrillation with rapid ventricular response Nonspecific ST and T wave abnormality , probably digitalis effect Abnormal ECG Electronically Signed By: Leonel Cano [id number]
--- NOTE | 2017-04-17 11:57 | CONS ---
Date/Time of Note Date/Time of Note DATE: 04/17/17 TIME: 11:55 Assessment/Plan Assessment/Plan Chief Complaint/Hosp Course No acute changes overnight. Patient is more awake follows simple commands, comfortable on vent Vital signs: Temperature 98.6 pulse 97 respirations 20 blood pressure 101/68 saturation 99 on 30 FiO2 Laboratory data WBC 42.6 H&H 10.1 and 31.2 platelets 161 neutrophils 85.8 BUN 46 creatinine 1.19 Indwelling's: Endotracheal tube Latif PICC line placed on April 15 Antimicrobials: Cancidas vancomycin and ciprofloxacin meropenem Flagyl Microbiology: Sputum culture grew multidrug-resistant pseudomonas aeruginosa intermittently susceptible to imipenem, Klebsiella pneumonia ESBL and Ramonita glabrata Physical examination: Well-developed, fragile elderly woman who is in no distress. Head atraumatic, normocephalic. Sclerae nonicteric neck is supple, trachea midline. Chest rise symmetrical, breath sounds diminished basis. Abdomen soft, bowel tones present. Extremities without cyanosis, trace edema. Assessment: 1. Severe sepsis, status post shock 2. Acute on chronic respiratory failure likely secondary to aspiration event 3. Healthcare associated pneumonia 4. Leukocytosis, patient had been on Solu-Cortef since admission 5. Diarrhea with a history of C. difficile colitis, on empiric Flagyl 6. 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 Gallstones possible acute cholecystitis 10. Acute encephalopathy, possibly anoxic Plan: Hemodynamically stable, mental status improved, pending IR cholecystostomy catheter placement, continue antibiotics, vent management as per pulmonary team Discussed with Discussed with RN Problems: Consultation Date/Type/Reason Admit Date/Time Apr 11, 2017 at 11:28 Initial Consult Date 04/12/17 Type of Consultation: ID Referring Provider: NINA MACIEL DO Exam/Review of Systems Vital Signs Vitals Vital Signs Date Time Temp Pulse Resp B/P Pulse Ox O2 Delivery O2 Flow Rate FiO2 04/17/17 11:20 97 32 99 30 04/17/17 11:00 132/82 Mechanical Ventilator 04/17/17 07:36 98.6 Intake and Output 04/16/17 04/16/17 04/17/17 15:00 23:00 07:00 Intake Total 813.0 ml 377 ml 762 ml Output Total 985 ml 1115 ml 480 ml Balance -172.0 ml -738 ml 282 ml Results Result Diagram: 04/17/17 0530 04/17/17 0530 Results 24 hrs Laboratory Tests Test 04/16/17 17:17 04/16/17 23:40 04/17/17 05:22 04/17/17 05:30 Bedside Glucose 85 106 119 White Blood Count 43.6 H Red Blood Count 3.03 L Hemoglobin 10.1 L Hematocrit 31.2 L Mean Corpuscular Volume 103.0 H Mean Corpuscular Hemoglobin 33.3 H Mean Corpuscular Hemoglobin Concent 32.4 Red Cell Distribution Width 14.4 Platelet Count 161 Mean Platelet Volume 11.4 H Neutrophils % 85.8 H Lymphocytes % 5.6 L Monocytes % 2.7 Eosinophils % 0.0 Basophils % 0.0 Nucleated Red Blood Cells % 0.2 H Neutrophils # 37.4 H Lymphocytes # 2.4 Monocytes # 1.2 H Eosinophils # 0.0 Basophils # 0.0 Nucleated Red Blood Cells # 0.1 H Sodium Level 138 Potassium Level 3.6 Chloride Level 109 Carbon Dioxide Level 21 Anion Gap 12 Blood Urea Nitrogen 46 H Creatinine 1.19 H Glucose Level 114 Calcium Level 8.4 Phosphorus Level 3.0 Magnesium Level 2.0 Total Bilirubin 0.0 L Direct Bilirubin 0.00 Indirect Bilirubin 0.0 Aspartate Amino Transf (AST/SGOT) 39 Alanine Aminotransferase (ALT/SGPT) 144 H Alkaline Phosphatase 172 H Total Protein 4.8 L Albumin 2.7 L Globulin 2.10 Albumin/Globulin Ratio 1.28 Test 04/17/17 11:42 Bedside Glucose 131 Medications Medications Current Medications Norepinephrine/ Dextrose (Levophed/D5W) 500 ml @ 0 mls/hr TITRATE IV Last administered on 04/14/17 10:24; Admin Dose 18.75 MLS/HR; Start 04/11/17 at 12:30 Aspirin (Aspirin) 325 mg DAILY NGT Last administered on 04/17/17 08:32; Admin Dose 325 MG; Start 04/12/17 at 09:00 Metoprolol Tartrate (Lopressor) 25 mg BID NGT Last administered on 04/17/17 08: 31; Admin Dose 25 MG; Start 04/11/17 at 21:00 Metoprolol Tartrate (Lopressor) 5 mg Q4H PRN IV HR>110 Hold SBP<110; Start at 13:30 Lansoprazole 30 mg 30 mg DAILY GTB Last administered on 04/17/17 08:31; Admin Dose 30 MG; Start 04/12/17 at 09:00 Phenylephrine HCl/ Dextrose (Chuy-Syneph/D5W) 500 ml @ 0 mls/hr TITRATE IV Last administered on 04/12/17 02:52; Admin Dose 75 MLS/HR; Start 04/11/17 at 16:00 Miscellaneous Information 1 ea NOTE XX ; Start 04/11/17 at 16:30 Glucose (Glutose) 15 gm Q15M PRN PO DECREASED GLUCOSE; Start 04/11/17 at 16:30 Glucose (Glutose) 22.5 gm Q15M PRN PO DECREASED GLUCOSE; Start 04/11/17 at 16: 30 Dextrose (D50w Syringe) 25 ml Q15M PRN IV DECREASED GLUCOSE Last administered on 04/12/17 23:56; Admin Dose 25 ML; Start 04/11/17 at 16:30 Dextrose (D50w Syringe) 50 ml Q15M PRN IV DECREASED GLUCOSE; Start 04/11/17 at 16:30 Glucagon (Glucagen) 1 mg Q15M PRN IM DECREASED GLUCOSE; Start 04/11/17 at 16:30 Glucose 15 gm 15 gm Q15M PRN BUCCAL DECREASED GLUCOSE; Start 04/11/17 at 16:30 Midazolam HCl 50 ml @ 1 mls/hr TITRATE IV Last administered on 04/13/17 04:30; Admin Dose 2 MLS/HR; Start 04/11/17 at 23:30 Fentanyl (Sublimaze) 100 ml @ 0.5 mls/hr TITRATE IV Last administered on 03:05; Admin Dose 0.5 MLS/HR; Start 04/12/17 at 09:30 Vancomycin HCl (Vancomycin Oral Syringe) 125 mg Q6 PO Last administered on 05:25; Admin Dose 125 MG; Start 04/12/17 at 12:00 Metoclopramide HCl (Reglan) 10 mg Q6 IV Last administered on 04/17/17 05:26; Admin Dose 10 MG; Start 04/12/17 at 18:00 Insulin Aspart (Novolog Insulin Pen) NOVOLOG *MILD* ALGORI... Q6H SC ; Start 04/15/17 at 00:00 Furosemide (Lasix) 20 mg DAILY IV Last administered on 04/17/17 08:32; Admin Dose 20 MG; Start 04/16/17 at 09:00 Metronidazole (Flagyl) 500 mg Q8 NGT Last administered on 04/17/17 05:25; Admin Dose 500 MG; Start 04/15/17 at 14:00 IV Flush 10 ml 10 ml PRN PRN IV FLUSH LINE; Start 04/15/17 at 13:00 Ciprofloxacin/ Dextrose (Cipro Ivpb) 200 ml @ 200 mls/hr Q12 IVPB Last administered on 04/17/17 08:32; Admin Dose 200 MLS/HR; Start 04/16/17 at 21:00 Hydrocortisone 25 mg 25 mg TID IV Last administered on 04/17/17 08:32; Admin Dose 25 MG; Start 04/16/17 at 13:00 Meropenem 100 ml @ 200 mls/hr Q12 IVPB Last administered on 04/17/17 08:59; Admin Dose 200 MLS/HR; Start 04/16/17 at 21:00 Vancomycin HCl 750 mg/Sodium Chloride 150 ml @ 75 mls/hr Q36H IVPB Last administered on 04/17/17 01:55; Admin Dose 75 MLS/HR; Start 04/17/17 at 01:00 Caspofungin/ Sodium Chloride (Cancidas/NS) 250 ml @ 250 mls/hr Q24H IVPB Last administered on 04/17/17 10:10; Admin Dose 250 MLS/HR; Start 04/17/17 at 10:00 Amiodarone HCl (Cordarone) 200 mg BID GTB Last administered on 04/17/17 08:31; Admin Dose 200 MG; Start 04/16/17 at 13:00 Diltiazem HCl 5 mg 5 mg Q1H PRN IV AFIB GREATER THAN 110 Last administered on 13:25; Admin Dose 5 MG; Start 04/16/17 at 13:00 Dextrose/Sodium Chloride (D5-1/2ns) 1,000 ml @ 50 mls/hr Q20H IV Last administered on 04/16/17 23:34; Admin Dose 50 MLS/HR; Start 04/17/17 at 00:00 Enoxaparin Sodium (Lovenox) 40 mg HS SC ; Start 04/17/17 at 21:00 LORETO MCKEON NP Apr 17, 2017 11:56
--- NOTE | 2017-04-17 13:02 | CONS ---
Date/Time of Note Date/Time of Note DATE: 04/17/17 TIME: 12:59 Assessment Additional comments: EEG REPORT DATE OF PROCEDURE: 04/16/2017 INDICATION: A 66-year-old with encephalopathy DESCRIPTION OF PROCEDURE: Routine EEG was recorded digitally. [id number] and [id number] montages were recorded and reviewed. All impedances were measured and recorded. Cap electrodes were placed in accordance with International 10-20 system of electrode placement. FINDINGS: Symmetrically distributed background activity was seen. Intermittent artifacts observed. Background rhythm is of low to medium amplitude, 8-9 Hz, at times slower about 4 to 6 cycles per second. No signs of ongoing electrographic seizures. No lateralized slowing. IMPRESSION: Abnormal study secondary to background slowing c/w encephalopathy , finding is not specific, could be toxic-metabolic or hypoxic. No seizure activity or epileptiform activity are seen. BETTIE ROBERTS MD Apr 17, 2017 13:02
[2017-04-17] MEDS: DILTIAZEM 25 MG INJ IV PRN (16:41)
[2017-04-17] MEDS ORDERED: ENOXAPARIN 40 MG/0.4 ML SYG SC SCH (21:00)
[2017-04-18] VITALS (39 sets, daily range): BP systolic 96–200; BP diastolic 46–119; PULSE 91–121; RESP 15–28
[2017-04-18] MEDS: LEVALBUTEROL (HFA) 15 GM INHALER INH PRN (02:23)
[2017-04-18] MEDS: METOCLOPRAMIDE 10 MG INJ IV SCH ×4 (02:30→17:24)
[2017-04-18] MEDS: FENTAnyl (DRIP) 1000 mcg/100mL 100 ML IV SCH (02:48)
[2017-04-18] MEDS: INSULIN ASPART [NOVOLOG] 3 ML PEN SC SCH ×4 (05:44→17:03)
[2017-04-18 05:58] LABS: ADD SCAN DIFF NO
[2017-04-18 06:02] LABS: ABNORMAL IP MESSAGE 1; HEMATOCRIT 28.6 % (37.0-47.0); HEMOGLOBIN 9.5 g/dl (12.0-16.0); MEAN CORPUSCULAR HEMOGLOBIN 34.1 pg (29.0-33.0); MEAN CORPUSCULAR HGB CONC 33.2 g/dl (32.0-37.0); MEAN CORPUSCULAR VOLUME 102.5 fl (82.0-101.0); MEAN PLATELET VOLUME 11.7 fl (7.4-10.4); PLATELET COUNT 219 10^3/UL (140-415); RED BLOOD COUNT 2.79 10^6/ul (4.20-5.40); RED CELL DISTRIBUTION WIDTH 14.3 % (11.5-14.5); WHITE BLOOD COUNT 43.5 10^3/ul (4.8-10.8)
[2017-04-18] MEDS: metroNIDAZOLE 500 MG TAB NGT SCH ×3 (06:26→21:58)
[2017-04-18] MEDS: LEVOTHYROXINE 75 MCG TAB GTB SCH (06:26)
[2017-04-18] MEDS: VANCOMYCIN HCL 250 MG/5ML POSYG PO SCH ×4 (06:26→17:37)
[2017-04-18 06:27] LABS: CALCIUM 8.4 mg/dl (8.4-10.2); CREATININE 1.2 mg/dl (0.44-1.00); MAGNESIUM 2.2 mg/dl (1.7-2.5); PHOSPHORUS 3.2 mg/dl (2.5-4.9); POTASSIUM 3.5 mmol/L (3.5-5.1)
--- NOTE | 2017-04-18 08:15 | PN ---
Date/Time of Note Date/Time of Note DATE: 04/18/17 TIME: 08:12 Assessment/Plan VTE Prophylaxis VTE Prophylaxis Intervention: other Lines/Catheters IV Catheter Type (from Nrsg): PICC Line Central line still needed: Yes Urinary Cath still in place: Yes Reason Cath still needed: other (indicate) Assessment/Plan Chief Complaint/Hosp Course 1. Nonoliguric keyonna. With previously normal baseline creatinine. Etiology is likely secondary to septic KEYONNA with possible ATN -Renal function has been stable, -Continue treatment plan. Supportive care renally dose meds avoid nephrotoxins -Follow-up renal panel - 2. Sepsis, status post shock. Etiology is likely secondary to aspiration pneumonia, -Patient currently off pressors. Remains on antibiotics - Patient's blood cultures have been reviewed. Continue current treatment plan Follow-up with infectious disease 3. Ventilator dependent respiratory failure. Etiology secondary to pneumonia, CHF . Vent settings, ABG been reviewed. Continue current vent settings follow-up with pulmonary 4. Volume overload. Etiology likely secondary to sepsis capillary leak. Possible diastolic heart failure. -Continue low-dose Lasix 5. Elevated troponin. Possible non-STEMI type II. We will continue to monitor follow-up with cardiology 6. History of adrenal insufficiency. -Patient currently on stress steroids, -Appreciate endocrinology evaluation 7. Acute encephalopathy etiologies toxic metabolic, possible anoxic injury. Mental status is improving, patient following commands CT scan showed no acute finding Appreciate Dr. Ellis evaluation -Continue to monitor closely 8. possible acute cholecystitis -Patient's HIDA scan was positive - cholecystostomy drain was not placed due to insufficient fluid. -Repeat abdominal ultrasound pending for evaluation Appreciate surgery's evaluation. 9. Hypothyroidism continue Synthroid 10. Anemia. Monitor H&H 11. Mineral bone disorder will monitor calcium phosphorus levels 12. h/o tongue cancer with resection 13. History of diastolic heart failure/coronary disease -Continue medical management 14. Leukocytosis. -Etiology is likely secondary sepsis, steroids. -Slowly improving as steroids are being weaned down - Follow-up with infectious disease. 15. Hypomagnesemia. Continue to monitor and replete as needed 16. Left upper extremity swelling. Check a Doppler ultrasound to rule out DVT dysphasia status post PEG continue tube feeding 17. Dysphagia status post PEG continue tube feeding I spent greater than 40 minutes of critical care time with this pt Problems: Subjective 24 Hr Interval Summary Free Text/Dictation Patient in critical but stable. Cholecystostomy drain was not placed yesterday due to lack of fluid per IR. Patient having an ultrasound for evaluation this morning Discussed with at bedside Exam/Review of Systems Vital Signs Vitals Vital Signs Date Time Temp Pulse Resp B/P Pulse Ox O2 Delivery O2 Flow Rate FiO2 04/18/17 06:00 95 28 122/70 98 Mechanical Ventilator 04/18/17 05:26 30 04/18/17 04:00 98.0 Intake and Output 04/17/17 04/17/17 04/18/17 15:00 23:00 07:00 Intake Total 812 ml 968 ml 32 ml Output Total 1165 ml 490 ml 320 ml Balance -353 ml 478 ml -288 ml Exam HEENT: Head is normocephalic. NECK: Supple. HEART: Irregular LUNGS: Show diminished breath sounds at base. ABDOMEN: Soft, nontender to palpation without rebound or guarding. EXTREMITIES: Negative for clubbing, cyanosis. Positive edema, left upper extremity DERMATOLOGIC: No rashes. MUSCULOSKELETAL: No joint effusions, positive wounds. NEUROLOGIC: No change in exam. Results Result Diagram: 04/18/17 0440 04/18/17 0500 Results 24 hrs Laboratory Tests Test 04/17/17 11:42 04/17/17 17:38 04/18/17 02:31 04/18/17 04:40 Bedside Glucose 131 145 125 White Blood Count 43.5 H Red Blood Count 2.79 L Hemoglobin 9.5 L Hematocrit 28.6 L Mean Corpuscular Volume 102.5 H Mean Corpuscular Hemoglobin 34.1 H Mean Corpuscular Hemoglobin Concent 33.2 Red Cell Distribution Width 14.3 Platelet Count 219 # Mean Platelet Volume 11.7 H Neutrophils % Eosinophils % Basophils % Neutrophils # Eosinophils # Basophils # Test 04/18/17 05:00 04/18/17 05:27 Sodium Level 136 Potassium Level 3.5 Chloride Level 108 Carbon Dioxide Level 22 Anion Gap 10 Blood Urea Nitrogen 47 H Creatinine 1.20 H Glucose Level 105 Calcium Level 8.4 Phosphorus Level 3.2 Magnesium Level 2.2 Bedside Glucose 118 Medications Medications Current Medications Norepinephrine/ Dextrose (Levophed/D5W) 500 ml @ 0 mls/hr TITRATE IV Last administered on 04/14/17t 10:24; Admin Dose 18.75 MLS/HR; Start 04/11/17 at 12:30 Aspirin (Aspirin) 325 mg DAILY NGT Last administered on 04/17/17 08:32; Admin Dose 325 MG; Start 04/12/17 at 09:00 Metoprolol Tartrate (Lopressor) 25 mg BID NGT Last administered on 04/17/17 21: 17; Admin Dose 25 MG; Start 04/11/17 at 21:00 Metoprolol Tartrate (Lopressor) 5 mg Q4H PRN IV HR>110 Hold SBP<110; Start at 13:30 Lansoprazole 30 mg 30 mg DAILY GTB Last administered on 04/17/17 08:31; Admin Dose 30 MG; Start 04/12/17 at 09:00 Phenylephrine HCl/ Dextrose (Chuy-Syneph/D5W) 500 ml @ 0 mls/hr TITRATE IV Last administered on 04/12/17 02:52; Admin Dose 75 MLS/HR; Start 04/11/17 at 16:00 Miscellaneous Information 1 ea NOTE XX ; Start 04/11/17 at 16:30 Glucose (Glutose) 15 gm Q15M PRN PO DECREASED GLUCOSE; Start 04/11/17 at 16:30 Glucose (Glutose) 22.5 gm Q15M PRN PO DECREASED GLUCOSE; Start 04/11/17 at 16: 30 Dextrose (D50w Syringe) 25 ml Q15M PRN IV DECREASED GLUCOSE Last administered on 04/12/17 23:56; Admin Dose 25 ML; Start 04/11/17 at 16:30 Dextrose (D50w Syringe) 50 ml Q15M PRN IV DECREASED GLUCOSE; Start 04/11/17 at 16:30 Glucagon (Glucagen) 1 mg Q15M PRN IM DECREASED GLUCOSE; Start 04/11/17 at 16:30 Glucose 15 gm 15 gm Q15M PRN BUCCAL DECREASED GLUCOSE; Start 04/11/17 at 16:30 Midazolam HCl 50 ml @ 1 mls/hr TITRATE IV Last administered on 04/13/17 04:30; Admin Dose 2 MLS/HR; Start 04/11/17 at 23:30 Fentanyl (Sublimaze) 100 ml @ 0.5 mls/hr TITRATE IV Last administered on 02:48; Admin Dose 0.5 MLS/HR; Start 04/12/17 at 09:30 Vancomycin HCl (Vancomycin Oral Syringe) 125 mg Q6 PO Last administered on 06:26; Admin Dose 125 MG; Start 04/12/17 at 12:00 Metoclopramide HCl (Reglan) 10 mg Q6 IV Last administered on 04/18/17 06:26; Admin Dose 10 MG; Start 04/12/17 at 18:00 Insulin Aspart (Novolog Insulin Pen) NOVOLOG *MILD* ALGORI... Q6H SC Last administered on 04/17/17 18:26; Admin Dose 1 UNIT; Start 04/15/17 at 00:00 Furosemide (Lasix) 20 mg DAILY IV Last administered on 04/17/17 08:32; Admin Dose 20 MG; Start 04/16/17 at 09:00 Metronidazole (Flagyl) 500 mg Q8 NGT Last administered on 04/18/17 06:26; Admin Dose 500 MG; Start 04/15/17 at 14:00 IV Flush 10 ml 10 ml PRN PRN IV FLUSH LINE; Start 04/15/17 at 13:00 Ciprofloxacin/ Dextrose (Cipro Ivpb) 200 ml @ 200 mls/hr Q12 IVPB Last administered on 04/17/17 21:16; Admin Dose 200 MLS/HR; Start 04/16/17 at 21:00 Hydrocortisone 25 mg 25 mg TID IV Last administered on 04/17/17 20:37; Admin Dose 25 MG; Start 04/16/17 at 13:00 Meropenem 100 ml @ 200 mls/hr Q12 IVPB Last administered on 04/17/17 20:34; Admin Dose 200 MLS/HR; Start 04/16/17 at 21:00 Vancomycin HCl 750 mg/Sodium Chloride 150 ml @ 75 mls/hr Q36H IVPB Last administered on 04/17/17 01:55; Admin Dose 75 MLS/HR; Start 04/17/17 at 01:00 Caspofungin/ Sodium Chloride (Cancidas/NS) 250 ml @ 250 mls/hr Q24H IVPB Last administered on 04/17/17 10:10; Admin Dose 250 MLS/HR; Start 04/17/17 at 10:00 Amiodarone HCl (Cordarone) 200 mg BID GTB Last administered on 04/17/17 20:36; Admin Dose 200 MG; Start 04/16/17 at 13:00 Diltiazem HCl (Cardizem Iv) 5 mg Q1H PRN IV AFIB GREATER THAN 110 Last administered on 04/17/17 16:41; Admin Dose 5 MG; Start 04/16/17 at 13:00 Enoxaparin Sodium (Lovenox) 40 mg HS SC Last administered on 04/17/17 20:38; Admin Dose 40 MG; Start 04/17/17 at 21:00 NINA MACIEL DO Apr 18, 2017 08:15
--- NOTE | 2017-04-18 08:25 | PN ---
Date/Time of Note Date/Time of Note DATE: 04/18/17 TIME: 08:23 Assessment/Plan VTE Prophylaxis VTE Prophylaxis Intervention: other Lines/Catheters IV Catheter Type (from Nrsg): PICC Line Central line still needed: Yes Urinary Cath still in place: Yes Reason Cath still needed: other (indicate) Assessment/Plan Chief Complaint/Hosp Course 1. acute on chronic hypoxemic respiratory failure: s/p intubation on vent. 2. NSTEMI: due to demand ischemia. 3. CHF: due to diastolic heart failure 4. moderate 5. Arrhythmia and P afib, frequent PVC. 6. ANEMIA 7. pneumonia, severe leukocytosis now. 8. s/p sepsis and shock off of levophed drip now. cont ASA vent support and abx as per PULM Team. correct lytes prn cont ICU care. betablocker as long as BP is stable and is able to tolerate it. thyroid supplement . will closely monitor in ICU. s/p amiodarone drip. will cont po amiodarone. replace lytes including K and Mg prn . Problems: Subjective 24 Hr Interval Summary Free Text/Dictation CARDIOLOGY FOLLOW UP: D/W staff , rhythm was reviewed. pt remains in NSR but with frequent PAC, PVC. pt also with an episode of Afib yesterday. pt remains intubated on vent in ICU. d/w Objective: General: Intubated on vent in ICU HEENT: NC/AT. eyes are closed. . NECK: NO JVD. no stridor. s/p previous trach with dressing covering it. CV: RRR. systolic ejection murmur; no gallop or rubs. PULM: no wheezing or rhonchi. GI: SOFT, NT, ND, no rebound or guarding s/p PEG Extremity: trace B/L LE edema. no clubbing. neuro: opens her eye and follows command Psych: calm rectal: deferred Derm: multiple echymosis Exam/Review of Systems Vital Signs Vitals Vital Signs Date Time Temp Pulse Resp B/P Pulse Ox O2 Delivery O2 Flow Rate FiO2 04/18/17 06:00 95 28 122/70 98 Mechanical Ventilator 04/18/17 05:26 30 04/18/17 04:00 98.0 Intake and Output 04/17/17 04/17/17 04/18/17 15:00 23:00 07:00 Intake Total 812 ml 968 ml 32 ml Output Total 1165 ml 490 ml 320 ml Balance -353 ml 478 ml -288 ml Results Result Diagram: 04/18/17 0440 04/18/17 0500 Results 24 hrs Laboratory Tests Test 04/17/17 11:42 04/17/17 17:38 04/18/17 02:31 04/18/17 04:40 Bedside Glucose 131 145 125 White Blood Count 43.5 H Red Blood Count 2.79 L Hemoglobin 9.5 L Hematocrit 28.6 L Mean Corpuscular Volume 102.5 H Mean Corpuscular Hemoglobin 34.1 H Mean Corpuscular Hemoglobin Concent 33.2 Red Cell Distribution Width 14.3 Platelet Count 219 # Mean Platelet Volume 11.7 H Neutrophils % Eosinophils % Basophils % Neutrophils # Eosinophils # Basophils # Test 04/18/17 05:00 04/18/17 05:27 Sodium Level 136 Potassium Level 3.5 Chloride Level 108 Carbon Dioxide Level 22 Anion Gap 10 Blood Urea Nitrogen 47 H Creatinine 1.20 H Glucose Level 105 Calcium Level 8.4 Phosphorus Level 3.2 Magnesium Level 2.2 Bedside Glucose 118 Medications Medications Current Medications Norepinephrine/ Dextrose (Levophed/D5W) 500 ml @ 0 mls/hr TITRATE IV Last administered on 04/14/17 10:24; Admin Dose 18.75 MLS/HR; Start 04/11/17 at 12:30 Aspirin (Aspirin) 325 mg DAILY NGT Last administered on 04/17/17 08:32; Admin Dose 325 MG; Start 04/12/17 at 09:00 Metoprolol Tartrate (Lopressor) 25 mg BID NGT Last administered on 04/17/17 21: 17; Admin Dose 25 MG; Start 04/11/17 at 21:00 Metoprolol Tartrate (Lopressor) 5 mg Q4H PRN IV HR>110 Hold SBP<110; Start at 13:30 Lansoprazole 30 mg 30 mg DAILY GTB Last administered on 04/17/17 08:31; Admin Dose 30 MG; Start 04/12/17 at 09:00 Phenylephrine HCl/ Dextrose (Chuy-Syneph/D5W) 500 ml @ 0 mls/hr TITRATE IV Last administered on 04/12/17 02:52; Admin Dose 75 MLS/HR; Start 04/11/17 at 16:00 Miscellaneous Information 1 ea NOTE XX ; Start 04/11/17 at 16:30 Glucose (Glutose) 15 gm Q15M PRN PO DECREASED GLUCOSE; Start 04/11/17 at 16:30 Glucose (Glutose) 22.5 gm Q15M PRN PO DECREASED GLUCOSE; Start 04/11/17 at 16: 30 Dextrose (D50w Syringe) 25 ml Q15M PRN IV DECREASED GLUCOSE Last administered on 04/12/17 23:56; Admin Dose 25 ML; Start 04/11/17 at 16:30 Dextrose (D50w Syringe) 50 ml Q15M PRN IV DECREASED GLUCOSE; Start 04/11/17 at 16:30 Glucagon (Glucagen) 1 mg Q15M PRN IM DECREASED GLUCOSE; Start 04/11/17 at 16:30 Glucose 15 gm 15 gm Q15M PRN BUCCAL DECREASED GLUCOSE; Start 04/11/17 at 16:30 Midazolam HCl 50 ml @ 1 mls/hr TITRATE IV Last administered on 04/13/17 04:30; Admin Dose 2 MLS/HR; Start 04/11/17 at 23:30 Fentanyl (Sublimaze) 100 ml @ 0.5 mls/hr TITRATE IV Last administered on 02:48; Admin Dose 0.5 MLS/HR; Start 04/12/17 at 09:30 Vancomycin HCl (Vancomycin Oral Syringe) 125 mg Q6 PO Last administered on 06:26; Admin Dose 125 MG; Start 04/12/17 at 12:00 Metoclopramide HCl (Reglan) 10 mg Q6 IV Last administered on 04/18/17 06:26; Admin Dose 10 MG; Start 04/12/17 at 18:00 Insulin Aspart (Novolog Insulin Pen) NOVOLOG *MILD* ALGORI... Q6H SC Last administered on 04/17/17 18:26; Admin Dose 1 UNIT; Start 04/15/17 at 00:00 Furosemide (Lasix) 20 mg DAILY IV Last administered on 04/17/17 08:32; Admin Dose 20 MG; Start 04/16/17 at 09:00 Metronidazole (Flagyl) 500 mg Q8 NGT Last administered on 04/18/17 06:26; Admin Dose 500 MG; Start 04/15/17 at 14:00 IV Flush 10 ml 10 ml PRN PRN IV FLUSH LINE; Start 04/15/17 at 13:00 Ciprofloxacin/ Dextrose (Cipro Ivpb) 200 ml @ 200 mls/hr Q12 IVPB Last administered on 04/17/17 21:16; Admin Dose 200 MLS/HR; Start 04/16/17 at 21:00 Hydrocortisone 25 mg 25 mg TID IV Last administered on 04/17/17 20:37; Admin Dose 25 MG; Start 04/16/17 at 13:00 Meropenem 100 ml @ 200 mls/hr Q12 IVPB Last administered on 04/17/17 20:34; Admin Dose 200 MLS/HR; Start 04/16/17 at 21:00 Vancomycin HCl 750 mg/Sodium Chloride 150 ml @ 75 mls/hr Q36H IVPB Last administered on 04/17/17 01:55; Admin Dose 75 MLS/HR; Start 04/17/17 at 01:00 Caspofungin/ Sodium Chloride (Cancidas/NS) 250 ml @ 250 mls/hr Q24H IVPB Last administered on 04/17/17 10:10; Admin Dose 250 MLS/HR; Start 04/17/17 at 10:00 Amiodarone HCl (Cordarone) 200 mg BID GTB Last administered on 04/17/17 20:36; Admin Dose 200 MG; Start 04/16/17 at 13:00 Diltiazem HCl (Cardizem Iv) 5 mg Q1H PRN IV AFIB GREATER THAN 110 Last administered on 04/17/17 16:41; Admin Dose 5 MG; Start 04/16/17 at 13:00 Enoxaparin Sodium (Lovenox) 40 mg HS SC Last administered on 04/17/17 20:38; Admin Dose 40 MG; Start 04/17/17 at 21:00 FRANCISCO BLACKWOOD MD Apr 18, 2017 08:25
[2017-04-18] MEDS ORDERED: POTASSIUM CHLORIDE 20 MEQ POWDER FOR ORAL SOLN PO ONE (08:30)
--- NOTE | 2017-04-18 08:36 | RADRPT ---
PROCEDURE: US Abdomen and Retroperitoneum. CLINICAL INDICATION: Abdominal pain TECHNIQUE: Multiple real-time longitudinal and transverse images were acquired of the patient's ab domen and retroperitoneum utilizing a curved array transducer. COMPARISON: CT and ultrasound from 04/11/2017 FINDINGS: The liver is normal in size and echogenicity without focal mass or intrahepatic biliary dilatation. Normal hepatopetal flow is seen within the main portal vein. Small echogenic focal air seen within t he gallbladder consistent with small stones. The gallbladder is contracted but There is no perichol ecystic fluid or gallbladder wall thickening. No intra or extrahepatic biliary dilatation is seen. T he common bile duct measures 5.8 mm in maximal dimension. The pancreas is not well seen due to ove rlying bowel gas. The spleen is normal in size and homogeneous in echogenicity. Minimal ascites is noted. The right kidney measures 10.4 cm in length. The left kidney measures 8.3 cm in length. There is normal echogenicity within the kidneys. There are no perinephric fluid collections. No hydronephr osis, mass, or calculus is seen. The aorta and IVC are unremarkable. IMPRESSION: 1. Cholelithiasis without definite sonographic evidence of acute cholecystitis. 2. Minimal ascites. RPTAT: JJ .Benjamni Fernando MD, MD Date Time Electronically viewed and signed by .Benjamin Fernando MD, on 04/18/2017 08:36 .A/
[2017-04-18] MEDS: CASPOFUNGIN 35 MG in SOD CHLORIDE 0.9% 250 ML IVPB SCH (08:53)
[2017-04-18] MEDS: CIPROFLOXACIN 400MG/D5W 200 ML IVPB SCH ×2 (08:53→21:56)
[2017-04-18] MEDS: FUROSEMIDE 20 MG INJ IV SCH (08:54)
[2017-04-18] MEDS: HYDROCORTISONE 100 MG INJ IV SCH ×3 (08:54→21:55)
[2017-04-18] MEDS: AMIODARONE 200 MG TAB GTB SCH ×2 (08:55→21:55)
[2017-04-18] MEDS: METOPROLOL 25 MG TAB NGT SCH ×2 (08:55→21:56)
[2017-04-18] MEDS: LANSOPRAZOLE 30 MG CAP GTB SCH (08:55)
[2017-04-18] MEDS: ASPIRIN 325 MG TAB NGT SCH (08:55)
--- NOTE | 2017-04-18 09:28 | RADRPT ---
PROCEDURE: US left upper extremity veins. CLINICAL INDICATION: Left arm pain and swelling. TECHNIQUE: Multiple longitudinal and transverse images of the left upper extremity venous tree was obtained with oates scale, pulsed Doppler, and color Doppler imaging. COMPARISON: None available FINDINGS: The left internal jugular, subclavian, axillary, brachial, cephalic, radial, and ulnar veins are pat ent with normal flow and compressibility. The left basilic vein in the forearm is thrombosed with l ack of flow and lack of compressibility. There is diffuse edema of the subcutaneous tissues. IMPRESSION: 1. Thrombosis of the left basilic vein in the forearm. 2. Otherwise normal venous system of the left upper extremity. RPTAT: QQ .Guero Guadalupe MD, MD Date Time Electronically viewed and signed by .Guero Guadalupe MD, MD on 04/18/2017 09:27 .R/
[2017-04-18] MEDS: MEROPENEM 1 GM/100 ML (PMX) 100 ML IVPB SCH ×2 (10:00→22:32)
[2017-04-18 10:32] LABS: EOSINOPHILS # 0.4 10^3/ul (0.0-0.5); LYMPHOCYTES # 2.6 10^3/ul (0.8-2.9); MONOCYTE # 1.3 10^3/ul (0.3-0.9); MYELOCYTES # 0.4; NEUTROPHIL # 31.3 10^3/ul (1.6-7.5)
[2017-04-18 11:55] LABS: AADO2 Arterial 98.2 mmHg (7.0-24.0); Allen Test ACCEPTAB; Arterial Base Excess -5.8 mmol/L (-3.0-3); Arterial COHb 0.3 % (0.0-3.0); Arterial Fraction of Oxyhgb 95.6 % (93.0-99.0); Arterial HCO3 17.6 mmol/L (22.0-26.0); Arterial MetHb 0.2 % (0.0-1.5); Arterial Total Hemglobin 12.1 g/dl (12.0-18.0); MODE VENT - CPAP
--- NOTE | 2017-04-18 12:01 | CONS ---
Date/Time of Note Date/Time of Note DATE: 04/18/17 TIME: 11:59 Consult Date/Type/Reason Admit Date/Time Apr 11, 2017 at 11:28 Initial Consult Date 04/12/17 Type of Consultation: Pulmonary Ordering Provider: NINA MACIEL DO Subjective More alert this morning comfortable at rest no acute distress Objective Vital Signs Date Time Temp Pulse Resp B/P Pulse Ox O2 Delivery O2 Flow Rate FiO2 04/18/17 09:00 95 15 140/80 100 Mechanical Ventilator 04/18/17 05:26 30 04/18/17 04:00 98.0 Intake and Output 04/17/17 04/17/17 04/18/17 15:00 23:00 07:00 Intake Total 812 ml 968 ml 32 ml Output Total 1165 ml 490 ml 320 ml Balance -353 ml 478 ml -288 ml Exam PHYSICAL EXAMINATION GENERAL: Elderly lady intubated on mechanical ventilation VITAL SIGNS: see below. HEENT: Pupils equal, round, and reactive to light CARDIAC: S1, S2, 1/6 systolic ejection murmur CHEST: Diminished air entry bilaterally. ABDOMEN: Mildly distended. Bowel sounds present no guarding or rebound EXTREMITIES: No cyanosis, clubbing edema +1 NEUROLOGIC: Generalized weakness Results/Medications Result Diagram: 04/18/17 0440 04/18/17 0500 Results 24 hrs Laboratory Tests Test 04/17/17 17:38 04/18/17 02:31 04/18/17 04:40 04/18/17 05:00 Bedside Glucose 145 125 White Blood Count 43.5 H Red Blood Count 2.79 L Hemoglobin 9.5 L Hematocrit 28.6 L Mean Corpuscular Volume 102.5 H Mean Corpuscular Hemoglobin 34.1 H Mean Corpuscular Hemoglobin Concent 33.2 Red Cell Distribution Width 14.3 Platelet Count 219 # Mean Platelet Volume 11.7 H Neutrophils % 72.0 Band Neutrophils % 17.0 H Lymphocytes % 6.0 L Monocytes % 3.0 Eosinophils % 1.0 Basophils % Myelocytes % 1.0 H Neutrophils # 31.3 H Lymphocytes # 2.6 Monocytes # 1.3 H Eosinophils # 0.4 Basophils # Myelocytes # 0.4 Giant Platelets 1+ Sodium Level 136 Potassium Level 3.5 Chloride Level 108 Carbon Dioxide Level 22 Anion Gap 10 Blood Urea Nitrogen 47 H Creatinine 1.20 H Glucose Level 105 Calcium Level 8.4 Phosphorus Level 3.2 Magnesium Level 2.2 Test 04/18/17 05:27 04/18/17 11:30 Bedside Glucose 118 Blood Gas Specimen Source Blood arterial Arterial Blood Date Drawn 04/18/2017 11:45:07 AM Arterial Blood pH (Temp corrected) 7.405 Arterial Blood pCO2 (Temp correct) 28.8 L Arterial Blood pO2 (Temp corrected) 81.9 Arterial Blood HCO3 17.6 L Arterial Blood Base Excess -5.8 L Arterial Blood Oxygen Saturation 96.1 Jonn Test ACCEPTAB Arterial Blood Gas Puncture Site Right Radial Arterial Blood Carboxyhemoglobin 0.3 Arterial Blood Methemoglobin 0.2 Blood Gas A-a O2 Differential 98.2 H Oxyhemoglobin Percent 95.6 Total Hemoglobin 12.1 Blood Gas Temperature 37.0 Blood Gas Actual Respiration Rate 19 Blood Gas Modality VENT - CPAP FiO2 30.0 Blood Gas High PEEP Setting 5.0 Blood Gas Notified Whom TM Blood Gas Notified Time 04/18/2017 11:55:44 AM Medications Current Medications Norepinephrine/ Dextrose (Levophed/D5W) 500 ml @ 0 mls/hr TITRATE IV Last administered on 04/14/17 10:24; Admin Dose 18.75 MLS/HR; Start 04/11/17 at 12:30 Aspirin (Aspirin) 325 mg DAILY NGT Last administered on 04/18/17 08:55; Admin Dose 325 MG; Start 04/12/17 at 09:00 Metoprolol Tartrate (Lopressor) 25 mg BID NGT Last administered on 04/18/17 08: 55; Admin Dose 25 MG; Start 04/11/17 at 21:00 Metoprolol Tartrate (Lopressor) 5 mg Q4H PRN IV HR>110 Hold SBP<110; Start at 13:30 Lansoprazole 30 mg 30 mg DAILY GTB Last administered on 04/18/17 08:55; Admin Dose 30 MG; Start 04/12/17 at 09:00 Phenylephrine HCl/ Dextrose (Chuy-Syneph/D5W) 500 ml @ 0 mls/hr TITRATE IV Last administered on 04/12/17 02:52; Admin Dose 75 MLS/HR; Start 04/11/17 at 16:00 Miscellaneous Information 1 ea NOTE XX ; Start 04/11/17 at 16:30 Glucose (Glutose) 15 gm Q15M PRN PO DECREASED GLUCOSE; Start 04/11/17 at 16:30 Glucose (Glutose) 22.5 gm Q15M PRN PO DECREASED GLUCOSE; Start 04/11/17 at 16: 30 Dextrose (D50w Syringe) 25 ml Q15M PRN IV DECREASED GLUCOSE Last administered on 04/12/17 23:56; Admin Dose 25 ML; Start 04/11/17 at 16:30 Dextrose (D50w Syringe) 50 ml Q15M PRN IV DECREASED GLUCOSE; Start 04/11/17 at 16:30 Glucagon (Glucagen) 1 mg Q15M PRN IM DECREASED GLUCOSE; Start 04/11/17 at 16:30 Glucose 15 gm 15 gm Q15M PRN BUCCAL DECREASED GLUCOSE; Start 04/11/17 at 16:30 Midazolam HCl 50 ml @ 1 mls/hr TITRATE IV Last administered on 04/13/17 04:30; Admin Dose 2 MLS/HR; Start 04/11/17 at 23:30 Fentanyl (Sublimaze) 100 ml @ 0.5 mls/hr TITRATE IV Last administered on 02:48; Admin Dose 0.5 MLS/HR; Start 04/12/17 at 09:30 Vancomycin HCl (Vancomycin Oral Syringe) 125 mg Q6 PO Last administered on 06:26; Admin Dose 125 MG; Start 04/12/17 at 12:00 Metoclopramide HCl (Reglan) 10 mg Q6 IV Last administered on 04/18/17 06:26; Admin Dose 10 MG; Start 04/12/17 at 18:00 Insulin Aspart (Novolog Insulin Pen) NOVOLOG *MILD* ALGORI... Q6H SC Last administered on 04/17/17 18:26; Admin Dose 1 UNIT; Start 04/15/17 at 00:00 Furosemide (Lasix) 20 mg DAILY IV Last administered on 04/18/17 08:54; Admin Dose 20 MG; Start 04/16/17 at 09:00 Metronidazole (Flagyl) 500 mg Q8 NGT Last administered on 04/18/17 06:26; Admin Dose 500 MG; Start 04/15/17 at 14:00 IV Flush 10 ml 10 ml PRN PRN IV FLUSH LINE; Start 04/15/17 at 13:00 Ciprofloxacin/ Dextrose (Cipro Ivpb) 200 ml @ 200 mls/hr Q12 IVPB Last administered on 04/18/17 08:53; Admin Dose 200 MLS/HR; Start 04/16/17 at 21:00 Hydrocortisone 25 mg 25 mg TID IV Last administered on 04/18/17 08:54; Admin Dose 25 MG; Start 04/16/17 at 13:00 Meropenem 100 ml @ 200 mls/hr Q12 IVPB Last administered on 04/17/17 20:34; Admin Dose 200 MLS/HR; Start 04/16/17 at 21:00 Vancomycin HCl 750 mg/Sodium Chloride 150 ml @ 75 mls/hr Q36H IVPB Last administered on 04/17/17 01:55; Admin Dose 75 MLS/HR; Start 04/17/17 at 01:00 Caspofungin/ Sodium Chloride (Cancidas/NS) 250 ml @ 250 mls/hr Q24H IVPB Last administered on 04/18/17 08:53; Admin Dose 250 MLS/HR; Start 04/17/17 at 10:00 Amiodarone HCl (Cordarone) 200 mg BID GTB Last administered on 04/18/17 08:55; Admin Dose 200 MG; Start 04/16/17 at 13:00 Diltiazem HCl (Cardizem Iv) 5 mg Q1H PRN IV AFIB GREATER THAN 110 Last administered on 04/17/17 16:41; Admin Dose 5 MG; Start 04/16/17 at 13:00 Enoxaparin Sodium (Lovenox) 40 mg HS SC Last administered on 04/17/17 20:38; Admin Dose 40 MG; Start 04/17/17 at 21:00 Assessment/Plan Chief Complaint/Hosp Course IMP: 1. Status post septic Shock--likely due to multilobar aspiration pneumonia vs. HCAP possibly secondary to acute cholecystitis also 2. Multifocal pneumonia aspiration vs. HCAP 3. Respiratory Failure 4. Status post lactic acidosis. Persistent leukocytosis, improved today 5. Demand Ischemia 6. Cholecystitis, pending percutaneous drainage 7. Encephalopathy toxic metabolic resolving RECS: 1. IVF's 2. Aspiration precautions 3. Continue antibiotics per primary team and infectious diseases 4. Vent--V-AC with rate 28; Vt 450 PEEP 5, cpap trial 5. Decrease sedation as tolerated 6. Advance tube feeding as tolerated 7. Neurology recommendations 8. Percutaneous drainage of gallbladder, surgical recommendations Critical care time 40 minutes. discussed with Problems: DARWIN CRAWFORD MD[facility] Apr 18, 2017 12:01
[2017-04-18] MEDS: VANCOMYCIN 750 MG in SOD CHLORIDE 0.9% 150 ML IVPB SCH (12:06)
--- NOTE | 2017-04-18 12:34 | CONS ---
Date/Time of Note Date/Time of Note DATE: 04/18/17 TIME: 12:31 Assessment/Plan Assessment/Plan Chief Complaint/Hosp Course No acute events. Patient is alert, comfortable on vent, at bedside Vital signs temperature 98 pulse 95 respirations 15 blood pressure 140/80 saturation 100 on 30 FiO2 Laboratory data: WBC 43.5 H&H 9.5 and 28.6 platelets 219 neutrophils 72 bands 17 lymphs 6 [place] BUN 47 creatinine 1.20 Indwelling's: Endotracheal tube Latif PICC line placed on April 15 Antimicrobials: Cancidas, vancomycin, ciprofloxacin, meropenem, Flagyl Microbiology: Sputum culture grew multidrug-resistant pseudomonas aeruginosa intermittently susceptible to imipenem, Klebsiella pneumonia ESBL and Ramonita glabrata Physical examination: Well-developed, fragile elderly woman who is alert, in no distress. Head atraumatic, normocephalic. Sclerae nonicteric neck is supple, trachea midline. Chest rise symmetrical, breath sounds diminished basis. Abdomen soft, bowel tones present. Extremities without cyanosis, trace edema. Assessment: 1. Severe sepsis, status post shock 2. Acute on chronic respiratory failure likely secondary to aspiration event 3. Healthcare associated pneumonia 4. Leukocytosis, patient had been on Solu-Cortef since admission 5. Diarrhea with a history of C. difficile colitis, on empiric Flagyl 6. 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 Gallstones ==> no evidence for cholecystitis per repeat abdominal ultrasound 10. Resolved encephalopathy Plan: Hemodynamically stable, clinically much better, continue antibiotics, weaning trials per pulmonary team Discussed with Discussed with RN Problems: Consultation Date/Type/Reason Admit Date/Time Apr 11, 2017 at 11:28 Initial Consult Date 04/12/17 Type of Consultation: ID Referring Provider: NINA MACIEL DO Exam/Review of Systems Vital Signs Vitals Vital Signs Date Time Temp Pulse Resp B/P Pulse Ox O2 Delivery O2 Flow Rate FiO2 04/18/17 09:00 95 15 140/80 100 Mechanical Ventilator 04/18/17 05:26 30 04/18/17 04:00 98.0 Intake and Output 04/17/17 04/17/17 04/18/17 15:00 23:00 07:00 Intake Total 812 ml 968 ml 32 ml Output Total 1165 ml 490 ml 320 ml Balance -353 ml 478 ml -288 ml Results Result Diagram: 04/18/17 0440 04/18/17 0500 Results 24 hrs Laboratory Tests Test 04/17/17 17:38 04/18/17 02:31 04/18/17 04:40 04/18/17 05:00 Bedside Glucose 145 125 White Blood Count 43.5 H Red Blood Count 2.79 L Hemoglobin 9.5 L Hematocrit 28.6 L Mean Corpuscular Volume 102.5 H Mean Corpuscular Hemoglobin 34.1 H Mean Corpuscular Hemoglobin Concent 33.2 Red Cell Distribution Width 14.3 Platelet Count 219 # Mean Platelet Volume 11.7 H Neutrophils % 72.0 Band Neutrophils % 17.0 H Lymphocytes % 6.0 L Monocytes % 3.0 Eosinophils % 1.0 Basophils % Myelocytes % 1.0 H Neutrophils # 31.3 H Lymphocytes # 2.6 Monocytes # 1.3 H Eosinophils # 0.4 Basophils # Myelocytes # 0.4 Giant Platelets 1+ Sodium Level 136 Potassium Level 3.5 Chloride Level 108 Carbon Dioxide Level 22 Anion Gap 10 Blood Urea Nitrogen 47 H Creatinine 1.20 H Glucose Level 105 Calcium Level 8.4 Phosphorus Level 3.2 Magnesium Level 2.2 Test 04/18/17 05:27 04/18/17 11:30 04/18/17 12:03 Bedside Glucose 118 112 Blood Gas Specimen Source Blood arterial Arterial Blood Date Drawn 04/18/2017 11:45:07 AM Arterial Blood pH (Temp corrected) 7.405 Arterial Blood pCO2 (Temp correct) 28.8 L Arterial Blood pO2 (Temp corrected) 81.9 Arterial Blood HCO3 17.6 L Arterial Blood Base Excess -5.8 L Arterial Blood Oxygen Saturation 96.1 Jonn Test ACCEPTAB Arterial Blood Gas Puncture Site Right Radial Arterial Blood Carboxyhemoglobin 0.3 Arterial Blood Methemoglobin 0.2 Blood Gas A-a O2 Differential 98.2 H Oxyhemoglobin Percent 95.6 Total Hemoglobin 12.1 Blood Gas Temperature 37.0 Blood Gas Actual Respiration Rate 19 Blood Gas Modality VENT - CPAP FiO2 30.0 Blood Gas High PEEP Setting 5.0 Blood Gas Notified Whom TM Blood Gas Notified Time 04/18/2017 11:55:44 AM Medications Medications Current Medications Norepinephrine/ Dextrose (Levophed/D5W) 500 ml @ 0 mls/hr TITRATE IV Last administered on 04/14/17 10:24; Admin Dose 18.75 MLS/HR; Start 04/11/17 at 12:30 Aspirin (Aspirin) 325 mg DAILY NGT Last administered on 04/18/17 08:55; Admin Dose 325 MG; Start 04/12/17 at 09:00 Metoprolol Tartrate (Lopressor) 25 mg BID NGT Last administered on 04/18/17 08: 55; Admin Dose 25 MG; Start 04/11/17 at 21:00 Metoprolol Tartrate (Lopressor) 5 mg Q4H PRN IV HR>110 Hold SBP<110; Start at 13:30 Lansoprazole 30 mg 30 mg DAILY GTB Last administered on 04/18/17 08:55; Admin Dose 30 MG; Start 04/12/17 at 09:00 Phenylephrine HCl/ Dextrose (Chuy-Syneph/D5W) 500 ml @ 0 mls/hr TITRATE IV Last administered on 04/12/17 02:52; Admin Dose 75 MLS/HR; Start 04/11/17 at 16:00 Miscellaneous Information 1 ea NOTE XX ; Start 04/11/17 at 16:30 Glucose (Glutose) 15 gm Q15M PRN PO DECREASED GLUCOSE; Start 04/11/17 at 16:30 Glucose (Glutose) 22.5 gm Q15M PRN PO DECREASED GLUCOSE; Start 04/11/17 at 16: 30 Dextrose (D50w Syringe) 25 ml Q15M PRN IV DECREASED GLUCOSE Last administered on 04/12/17 23:56; Admin Dose 25 ML; Start 04/11/17 at 16:30 Dextrose (D50w Syringe) 50 ml Q15M PRN IV DECREASED GLUCOSE; Start 04/11/17 at 16:30 Glucagon (Glucagen) 1 mg Q15M PRN IM DECREASED GLUCOSE; Start 04/11/17 at 16:30 Glucose 15 gm 15 gm Q15M PRN BUCCAL DECREASED GLUCOSE; Start 04/11/17 at 16:30 Midazolam HCl 50 ml @ 1 mls/hr TITRATE IV Last administered on 04/13/17 04:30; Admin Dose 2 MLS/HR; Start 04/11/17 at 23:30 Fentanyl (Sublimaze) 100 ml @ 0.5 mls/hr TITRATE IV Last administered on 02:48; Admin Dose 0.5 MLS/HR; Start 04/12/17 at 09:30 Vancomycin HCl (Vancomycin Oral Syringe) 125 mg Q6 PO Last administered on 12:06; Admin Dose 125 MG; Start 04/12/17 at 12:00 Metoclopramide HCl (Reglan) 10 mg Q6 IV Last administered on 04/18/17 12:05; Admin Dose 10 MG; Start 04/12/17 at 18:00 Insulin Aspart (Novolog Insulin Pen) NOVOLOG *MILD* ALGORI... Q6H SC Last administered on 04/17/17 18:26; Admin Dose 1 UNIT; Start 04/15/17 at 00:00 Furosemide (Lasix) 20 mg DAILY IV Last administered on 04/18/17 08:54; Admin Dose 20 MG; Start 04/16/17 at 09:00 Metronidazole (Flagyl) 500 mg Q8 NGT Last administered on 04/18/17 12:26; Admin Dose 500 MG; Start 04/15/17 at 14:00 IV Flush 10 ml 10 ml PRN PRN IV FLUSH LINE; Start 04/15/17 at 13:00 Ciprofloxacin/ Dextrose (Cipro Ivpb) 200 ml @ 200 mls/hr Q12 IVPB Last administered on 04/18/17 08:53; Admin Dose 200 MLS/HR; Start 04/16/17 at 21:00 Hydrocortisone 25 mg 25 mg TID IV Last administered on 04/18/17 12:26; Admin Dose 25 MG; Start 04/16/17 at 13:00 Meropenem 100 ml @ 200 mls/hr Q12 IVPB Last administered on 04/17/17 20:34; Admin Dose 200 MLS/HR; Start 04/16/17 at 21:00 Vancomycin HCl 750 mg/Sodium Chloride 150 ml @ 75 mls/hr Q36H IVPB Last administered on 04/18/17 12:06; Admin Dose 75 MLS/HR; Start 04/17/17 at 01:00 Caspofungin/ Sodium Chloride (Cancidas/NS) 250 ml @ 250 mls/hr Q24H IVPB Last administered on 04/18/17 08:53; Admin Dose 250 MLS/HR; Start 04/17/17 at 10:00 Amiodarone HCl (Cordarone) 200 mg BID GTB Last administered on 04/18/17 08:55; Admin Dose 200 MG; Start 04/16/17 at 13:00 Diltiazem HCl (Cardizem Iv) 5 mg Q1H PRN IV AFIB GREATER THAN 110 Last administered on 04/17/17 16:41; Admin Dose 5 MG; Start 04/16/17 at 13:00 Enoxaparin Sodium (Lovenox) 40 mg HS SC Last administered on 04/17/17 20:38; Admin Dose 40 MG; Start 04/17/17 at 21:00 LORETO MCKEON NP Apr 18, 2017 12:33
--- NOTE | 2017-04-18 13:28 | PN ---
Date/Time of Note Date/Time of Note DATE: 04/18/17 TIME: 12:43 Assessment/Plan Lines/Catheters IV Catheter Type (from [facility]): PICC Line Mims in Place (from [facility]): Yes Assessment/Plan Chief Complaint/Hosp Course 1. Cholelithiasis without cholecystitis: Ct abd: sludge and small stones in the gallbladder. No gallbladder wall thickening is noted with some pericholecystic fluid is present. Patient off pressors; OGT no output; HIDA positive; IR drain placement attempted yesterday but unable due to not enough fluid to drain. Repeat US showed: Cholelithiasis without definite sonographic evidence of acute cholecystitis; tolerating tube feedings -No surgical intervention required at this time -may need eventual lap rupal as condition permits - will continue to monitor 2. Pneumonia: Recurrent; no fevers; intubated; less secretions; CXR 7/ Changes of pulmonary vascular congestion and increased interstitial markings. sputum cx : PSEUDOMONAS AERUGINOSA, K PNEUMO ESBL, NASRIN GLABRATA; -Pulmonary toilet -antimicrobials per ID -diuresis 3. Vent dependent respiratory failure: 2/2 aspiration PNA+ CHF; attempt to extubate today -as above -wean as patient condition permits 4. Septic shock: Off pressors; afebrile overnight; NSR, sputum culture positive ; improved -on abx -supportive 5. Uncontrolled Afib: s/p amiodarone drip, on oral amiodarone Now SR -medical optimization -lovenox 6. Elevated troponin:NSTEMI; septic shock/demand ischemia -trend 7. Leukocytosis with lactic acidosis: 2/2 pneumonia vs. steroids vs. other ( urine, blood cultures negative); wbc unchanged; lactic acid stable -on abx -judicious fluid management -steroid taper 8. KEYONNA: likely 2/2 septic shock; mims with good output; Cr unchanged -judicious fluid management -per nephro 9. CHF: -judicious fluid management -medical optimization 10. Adrenal Insufficiency: was on steroids previously -solucortef 11. Hypomagnesemia: normalized -electrolyte optimization -monitor for cardiac abnormalities 12. Hypothyroidism -cont. synthroid 13. macrocytic anemia: chronic vs. dilutional vs. acute bleed vs. b12/folate deficiency; h/h slightly lower today -monitor -Transfuse as needed 14. Transaminitis: likely 2/2 septic shock vs. cholecystitis; improved -trend, monitor 15. Diarrhea: 2/2 abx vs. enteritis: resolved -start probiotics -stool cultures 16. Thrombocytosis: 2/2 inflammatory vs. drug induced vs. other; normalized -monitor -bleeding precautions -supportive 17. Encephalopathy: 2/2 toxic metabolic vs. anoxic injury; CT: No acute intracranial hemorrhage or mass effect. Mild chronic microvascular disease and intracranial atherosclerosis; more alert and communicative; EEG shows no seizure activity -supportive 18. Bilateral upper extremity edema: likely 2/2 decreased movement vs. thrombosis; initial doppler negative, repeat doppler left arm (+) Thrombus -elevate extremities 19. Hypoalbuminemia: 2/2 malnutrition +/- inflammation; tolerating tube feeds -nutrition optimization -as above 20. Left basilic vein thrombus: -?heparin therapeutic dose/drip Patient seen and examined in collaboration with Dr. Justus Antonio Problems: Subjective 24 Hr Interval Summary More awake and responsive. Attempt to extubate today. No fevers, now in SR. Comfortable. No c/o metzger, dizziness/lightheadedness, cough, sob, palpitations, cp , abdominal pain or fullness, n/v/d. Tolerated tube feedings. + flatus, no bm today Exam/Review of Systems Vital Signs Vitals Vital Signs Date Time Temp Pulse Resp B/P Pulse Ox O2 Delivery O2 Flow Rate FiO2 04/18/17 09:00 95 15 140/80 100 Mechanical Ventilator 04/18/17 05:26 30 04/18/17 04:00 98.0 Intake and Output 04/17/17 04/17/17 04/18/17 15:00 23:00 07:00 Intake Total 812 ml 968 ml 32 ml Output Total 1165 ml 490 ml 320 ml Balance -353 ml 478 ml -288 ml Exam Free Text/Dictation Constitutional: alert and responsive, well developed Head: atraumatic, normocephalic Eyes: PERRL, nl lids, nl sclera ENMT: intubated (ET tube) No mucosa pink and moist (pink and dry) Neck: non-tender, supple Respiratory: diminished Cardiovascular: nl pulses, regular rate and rhythm, NSR Gastrointestinal: bowel sounds (hypoactive), non-tender, soft, GT tubes site no erythema, no drainage, mildly distended, No rebound tenderness or guarding Genitourinary - Female: nl external genitalia Musculoskeletal: nl extremities to inspection Extremities: normal pulses, min edema, mod left arm Neurological: more responsive Skin: nl turgor, No rash or lesions Lymph: nl lymph nodes Results Result Diagram: 04/18/17 0440 04/18/17 0500 ADDISON FREGOSO NP Apr 18, 2017 12:53
[2017-04-18] MEDS ORDERED: morphine 2 MG INJ IV PRN (16:30)
[2017-04-18] MEDS ORDERED: morphine 10 MG INJ IM PRN (16:30)
[2017-04-18] MEDS: [UNRECOGNIZED DRUG - REMARK] XX SCH (16:44)
[2017-04-18] MEDS: HEPARIN 5,000 UNIT/0.5 ML VIAL SC SCH ×2 (17:02→21:58)
[2017-04-18] MEDS: HYDROCODONE/APAP (5/325) TAB NGT PRN (17:14)
[2017-04-18] MEDS: METOPROLOL 5 MG INJ IV PRN (17:32)
[2017-04-18] MEDS: hydrALAzine 20 MG INJ IV PRN (18:25)
[2017-04-18] MEDS: LEVALBUTEROL (NEB) 0.63 MG/3 ML AMP HHN PRN (20:06)
[2017-04-18] MEDS ORDERED: HEPARIN 5,000 UNIT/0.5 ML VIAL SC SCH (21:00)
--- NOTE | 2017-04-18 21:20 | CONS ---
Date/Time of Note Date/Time of Note DATE: 04/18/17 TIME: 21:17 Assessment/Plan Assessment/Plan Problems: (1) Steroid dependence Status: Chronic Comment: Steroids tapered though when has Gallbladder surgery will need stress doses briefly. Continue recovery from arrest and stress induced NSTEMI. And treatment of pneumonia (2) Diastolic dysfunction with acute on chronic heart failure Status: Chronic Comment: As per cardiology Consultation Date/Type/Reason Admit Date/Time Apr 11, 2017 at 11:28 Initial Consult Date 04/14/17 Type of Consultation: Endocrinology Reason for Consultation Adrenal Insufficiency Referring Provider: NINA MACIEL DO 24 HR Interval Summary Free Text/Dictation Patient is modestly improved, remains critically ill in ICU Subjective hx not possible: pt critical status Exam/Review of Systems Vital Signs Vitals Vital Signs Date Time Temp Pulse Resp B/P Pulse Ox O2 Delivery O2 Flow Rate FiO2 04/18/17 20:06 118 30 97 Nasal Cannula 3.0 04/18/17 18:45 96/67 04/18/17 16:00 98.1 04/18/17 14:00 30 Intake and Output 04/17/17 04/17/17 04/18/17 15:00 23:00 07:00 Intake Total 812 ml 968 ml 32 ml Output Total 1165 ml 490 ml 320 ml Balance -353 ml 478 ml -288 ml Exam Constitutional: alert ENMT: intubated Cardiovascular: nl pulses, regular rate and rhythm Results Result Diagram: 04/18/17 0440 04/18/17 0500 Results 24 hrs Laboratory Tests Test 04/18/17 02:31 04/18/17 04:40 04/18/17 05:00 04/18/17 05:27 Bedside Glucose 125 118 White Blood Count 43.5 H Red Blood Count 2.79 L Hemoglobin 9.5 L Hematocrit 28.6 L Mean Corpuscular Volume 102.5 H Mean Corpuscular Hemoglobin 34.1 H Mean Corpuscular Hemoglobin Concent 33.2 Red Cell Distribution Width 14.3 Platelet Count 219 # Mean Platelet Volume 11.7 H Neutrophils % 72.0 Band Neutrophils % 17.0 H Lymphocytes % 6.0 L Monocytes % 3.0 Eosinophils % 1.0 Basophils % Myelocytes % 1.0 H Neutrophils # 31.3 H Lymphocytes # 2.6 Monocytes # 1.3 H Eosinophils # 0.4 Basophils # Myelocytes # 0.4 Giant Platelets 1+ Sodium Level 136 Potassium Level 3.5 Chloride Level 108 Carbon Dioxide Level 22 Anion Gap 10 Blood Urea Nitrogen 47 H Creatinine 1.20 H Glucose Level 105 Calcium Level 8.4 Phosphorus Level 3.2 Magnesium Level 2.2 Test 04/18/17 11:30 04/18/17 12:03 04/18/17 16:54 Blood Gas Specimen Source Blood arterial Arterial Blood Date Drawn 04/18/2017 11:45:07 AM Arterial Blood pH (Temp corrected) 7.405 Arterial Blood pCO2 (Temp correct) 28.8 L Arterial Blood pO2 (Temp corrected) 81.9 Arterial Blood HCO3 17.6 L Arterial Blood Base Excess -5.8 L Arterial Blood Oxygen Saturation 96.1 Jonn Test ACCEPTAB Arterial Blood Gas Puncture Site Right Radial Arterial Blood Carboxyhemoglobin 0.3 Arterial Blood Methemoglobin 0.2 Blood Gas A-a O2 Differential 98.2 H Oxyhemoglobin Percent 95.6 Total Hemoglobin 12.1 Blood Gas Temperature 37.0 Blood Gas Actual Respiration Rate 19 Blood Gas Modality VENT - CPAP FiO2 30.0 Blood Gas High PEEP Setting 5.0 Blood Gas Notified Whom TM Blood Gas Notified Time 04/18/2017 11:55:44 AM Bedside Glucose 112 95 Medications Medications Current Medications Norepinephrine/ Dextrose (Levophed/D5W) 500 ml @ 0 mls/hr TITRATE IV Last administered on 04/14/17 10:24; Admin Dose 18.75 MLS/HR; Start 04/11/17 at 12:30 Aspirin (Aspirin) 325 mg DAILY NGT Last administered on 04/18/17 08:55; Admin Dose 325 MG; Start 04/12/17 at 09:00 Metoprolol Tartrate (Lopressor) 25 mg BID NGT Last administered on 04/18/17 08: 55; Admin Dose 25 MG; Start 04/11/17 at 21:00 Metoprolol Tartrate (Lopressor) 5 mg Q4H PRN IV HR>110 Hold SBP<110 Last administered on 04/18/17 17:32; Admin Dose 5 MG; Start 04/11/17 at 13:30 Lansoprazole 30 mg 30 mg DAILY GTB Last administered on 04/18/17 08:55; Admin Dose 30 MG; Start 04/12/17 at 09:00 Phenylephrine HCl/ Dextrose (Chuy-Syneph/D5W) 500 ml @ 0 mls/hr TITRATE IV Last administered on 04/12/17 02:52; Admin Dose 75 MLS/HR; Start 04/11/17 at 16:00 Miscellaneous Information 1 ea NOTE XX ; Start 04/11/17 at 16:30 Glucose (Glutose) 15 gm Q15M PRN PO DECREASED GLUCOSE; Start 04/11/17 at 16:30 Glucose (Glutose) 22.5 gm Q15M PRN PO DECREASED GLUCOSE; Start 04/11/17 at 16: 30 Dextrose (D50w Syringe) 25 ml Q15M PRN IV DECREASED GLUCOSE Last administered on 04/12/17 23:56; Admin Dose 25 ML; Start 04/11/17 at 16:30 Dextrose (D50w Syringe) 50 ml Q15M PRN IV DECREASED GLUCOSE; Start 04/11/17 at 16:30 Glucagon (Glucagen) 1 mg Q15M PRN IM DECREASED GLUCOSE; Start 04/11/17 at 16:30 Glucose 15 gm 15 gm Q15M PRN BUCCAL DECREASED GLUCOSE; Start 04/11/17 at 16:30 Midazolam HCl 50 ml @ 1 mls/hr TITRATE IV Last administered on 04/13/17 04:30; Admin Dose 2 MLS/HR; Start 04/11/17 at 23:30 Fentanyl (Sublimaze) 100 ml @ 0.5 mls/hr TITRATE IV Last administered on 02:48; Admin Dose 0.5 MLS/HR; Start 04/12/17 at 09:30 Vancomycin HCl (Vancomycin Oral Syringe) 125 mg Q6 PO Last administered on 17:37; Admin Dose 125 MG; Start 04/12/17 at 12:00 Metoclopramide HCl (Reglan) 10 mg Q6 IV Last administered on 04/18/17 17:24; Admin Dose 10 MG; Start 04/12/17 at 18:00 Insulin Aspart (Novolog Insulin Pen) NOVOLOG *MILD* ALGORI... Q6H SC Last administered on 04/17/17 18:26; Admin Dose 1 UNIT; Start 04/15/17 at 00:00 Furosemide (Lasix) 20 mg DAILY IV Last administered on 04/18/17 08:54; Admin Dose 20 MG; Start 04/16/17 at 09:00 Metronidazole (Flagyl) 500 mg Q8 NGT Last administered on 04/18/17 12:26; Admin Dose 500 MG; Start 04/15/17 at 14:00 IV Flush 10 ml 10 ml PRN PRN IV FLUSH LINE; Start 04/15/17 at 13:00 Ciprofloxacin/ Dextrose (Cipro Ivpb) 200 ml @ 200 mls/hr Q12 IVPB Last administered on 04/18/17 08:53; Admin Dose 200 MLS/HR; Start 04/16/17 at 21:00 Hydrocortisone 25 mg 25 mg TID IV Last administered on 04/18/17 12:26; Admin Dose 25 MG; Start 04/16/17 at 13:00 Meropenem 100 ml @ 200 mls/hr Q12 IVPB Last administered on 04/17/17 20:34; Admin Dose 200 MLS/HR; Start 04/16/17 at 21:00 Vancomycin HCl 750 mg/Sodium Chloride 150 ml @ 75 mls/hr Q36H IVPB Last administered on 04/18/17 12:06; Admin Dose 75 MLS/HR; Start 04/17/17 at 01:00 Caspofungin/ Sodium Chloride (Cancidas/NS) 250 ml @ 250 mls/hr Q24H IVPB Last administered on 04/18/17 08:53; Admin Dose 250 MLS/HR; Start 04/17/17 at 10:00 Amiodarone HCl (Cordarone) 200 mg BID GTB Last administered on 04/18/17 08:55; Admin Dose 200 MG; Start 04/16/17 at 13:00 Diltiazem HCl (Cardizem Iv) 5 mg Q1H PRN IV AFIB GREATER THAN 110 Last administered on 04/17/17 16:41; Admin Dose 5 MG; Start 04/16/17 at 13:00 Enoxaparin Sodium (Lovenox) 40 mg HS SC Last administered on 04/17/17 20:38; Admin Dose 40 MG; Start 04/17/17 at 21:00; Status Future Hold Heparin Sodium (Porcine) (Heparin (5000 Units/0.5 ml)) 5,000 unit BID SC Last administered on 04/18/17 17:02; Admin Dose 5,000 UNIT; Start 04/18/17 at 16:22 Miscellaneous Information (*Order Clarification Bulletin) MEDICATION REQUIRES CLARIFICATION: Q8H XX Last administered on 04/18/17 16:44; Admin Dose 1 EA; Start 04/18/17 at 16:30 Acetaminophen/ Hydrocodone Bitart (Alto (5/325)) 2 tab Q4H PRN NGT MODERATE PAIN LEVEL 4-6 Last administered on 04/18/17 17:14; Admin Dose 2 TAB; Start 04/18 at 17:30 Citalopram Hydrobromide (Celexa) 20 mg DAILY NGT ; Start 04/19/17 at 09:00 Hydralazine HCl (Apresoline) 20 mg Q6H PRN IV sbp ABOVE 160 Last administered on 04/18/17 18:25; Admin Dose 20 MG; Start 04/18/17 at 18:30 IZZY TYLER MD Apr 18, 2017 21:20
[2017-04-18] MEDS ORDERED: RACEPINEPHRINE 2.25%(NEB) 0.5 ML AMP HHN PRN (21:30)
--- NOTE | 2017-04-18 22:13 | RADRPT ---
PROCEDURE: XR Chest. CLINICAL INDICATION: Post extubation. TECHNIQUE: Portable AP upright view of the chest was obtained. COMPARISON: 04/16/2017 FINDINGS: The cardiomediastinal silhouette is mildly enlarged, unchanged. Mild chronic pulmonary vascular con gestion is again suggested but has decreased since the prior study. Interval endotracheal and nasog astric tube removal. Small bilateral pleural effusions are of concern. Right-sided PICC remains in good position. The osseous structures are intact with no evidence for acute abnormality. Metallic clips in the right neck are again identified. Calcification of the aorta is present RPTAT:HJJR IMPRESSION: 1. Interval endotracheal and nasogastric extubation with slight decrease in diffuse interstitial yusuf ma and pleural effusions compared to 04/16/2017. 2. Right-sided PICC remains in good radiographic position. Physician Vincent Date Time Electronically viewed and signed by Physician Vincent on 04/18/2017 22:12 JR/
[2017-04-19] VITALS (51 sets, daily range): BP systolic 113–191; BP diastolic 53–100; PULSE 89–155; RESP 17–34
[2017-04-19] MEDS: VANCOMYCIN HCL 250 MG/5ML POSYG PO SCH ×4 (00:12→17:45)
[2017-04-19] MEDS: METOCLOPRAMIDE 10 MG INJ IV SCH ×4 (00:12→17:44)
[2017-04-19] MEDS: INSULIN ASPART [NOVOLOG] 3 ML PEN SC SCH ×4 (00:12→17:50)
[2017-04-19] MEDS: [UNRECOGNIZED DRUG - REMARK] XX SCH (00:30)
[2017-04-19] MEDS: hydrALAzine 20 MG INJ IV PRN ×2 (03:09→15:08)
[2017-04-19] MEDS: LEVALBUTEROL (NEB) 0.63 MG/3 ML AMP HHN PRN (04:20)
[2017-04-19 05:11] LABS: ADD SCAN DIFF NO
[2017-04-19 05:16] LABS: ABNORMAL IP MESSAGE 1; BASOPHIL # 0.3 10^3/ul (0.0-0.1); BASOPHILS % 0.5 % (0.0-2.0); HEMATOCRIT 33.1 % (37.0-47.0); HEMOGLOBIN 10.3 g/dl (12.0-16.0); LYMPHOCYTES # 1.2 10^3/ul (0.8-2.9); LYMPHOCYTES % 2.5 % (15.0-51.0); MEAN CORPUSCULAR HEMOGLOBIN 32.9 pg (29.0-33.0); MEAN CORPUSCULAR HGB CONC 31.1 g/dl (32.0-37.0); MEAN CORPUSCULAR VOLUME 105.8 fl (82.0-101.0); MEAN PLATELET VOLUME 11.1 fl (7.4-10.4); MONOCYTE # 2.6 10^3/ul (0.3-0.9); MONOCYTES % 5.5 % (0.0-11.0); NEUTROPHIL # 40.7 10^3/ul (1.6-7.5); NEUTROPHILS % 85.7 % (39.0-77.0); NUCLEATED RED BLOOD CELLS # 0.1 10^3/ul (0.0-0.0); NUCLEATED RED BLOOD CELLS% 0.1 /100WBC (0.0-0.0); PLATELET COUNT 344 10^3/UL (140-415); RED BLOOD COUNT 3.13 10^6/ul (4.20-5.40); RED CELL DISTRIBUTION WIDTH 14.7 % (11.5-14.5)
[2017-04-19 05:28] LABS: WHITE BLOOD COUNT 47.5 10^3/ul (4.8-10.8)
[2017-04-19 05:47] LABS: MAGNESIUM 2.2 mg/dl (1.7-2.5); PHOSPHORUS 5.3 mg/dl (2.5-4.9)
[2017-04-19 05:49] LABS: ALBUMIN 3.1 g/dl (3.3-4.9); ALBUMIN/GLOBULIN RATIO 1.06; CALCIUM 9.3 mg/dl (8.4-10.2); CREATININE 1.27 mg/dl (0.44-1.00); POTASSIUM 3.8 mmol/L (3.5-5.1)
[2017-04-19] MEDS: metroNIDAZOLE 500 MG TAB NGT SCH ×3 (05:53→21:13)
[2017-04-19] MEDS: LEVOTHYROXINE 75 MCG TAB GTB SCH (06:00)
--- NOTE | 2017-04-19 06:47 | CONS ---
Date/Time of Note Date/Time of Note DATE: 04/19/17 TIME: 06:26 Consult Date/Type/Reason Admit Date/Time Apr 11, 2017 at 11:28 Initial Consult Date 04/14/17 Type of Consultation: im Ordering Provider: NINA GANDHI DO Subjective This is a 66-year-old female with a past medical history of tongue cancer status post section reconstruction 10 years ago.. The patient approximately 16 months ago had clinical decompensation respiratory failure underwent trach and PEG. The patient was transferred to [facility] where she underwent weaning off of that. The patient was subsequently transferred to [facility] as had previous hospital stays for sepsis pneumonia and respiratory failure. Most recently in her last hospital stay follow the patient was successfully decannulated and removal with removal of PEG. She was subsequently [facility]. She now presents yesterday to [facility] emergency room with hypoxemic respiratory failure. After an episode of acid emesis and concern of aspiration pneumonitis pneumonia. In the emergency room the patient was critically ill was intubated was in septic shock placed on pressure support IV pressors and IV antibiotics and transferred to the intensive care unit for further care. In the emergency room the patient had a CT of the abdomen pelvis which showed evidence of pericholecystic fluid possile cholecystitis. Patient also had noted infiltrates in her lungs bilaterally and noted to be in shock.Patient had normal renal function on admission her creatinine is increased. Interim events was extubated but went into respiratory distress requiring bipap. IR cancelled procedure poc reviewed with and dr. gandhi. GENERAL: Elderly lady intubated on mechanical ventilation VITAL SIGNS: see below. HEENT: Pupils equal, round, and reactive to light CARDIAC: S1, S2, 1/6 systolic ejection murmur CHEST: Diminished air entry bilaterally. ABDOMEN: Mildly distended. Bowel sounds present no guarding or rebound EXTREMITIES: No cyanosis, clubbing edema +1 NEUROLOGIC: Generalized weakness Objective Vital Signs Date Time Temp Pulse Resp B/P Pulse Ox O2 Delivery O2 Flow Rate FiO2 04/19/17 06:00 98.8 109 21 134/74 100 BIPAP 04/19/17 05:56 40 04/18/17 22:00 3.0 Intake and Output 04/18/17 04/18/17 04/19/17 15:00 23:00 07:00 Intake Total 600 ml 300 ml 110 ml Output Total 1020 ml 390 ml 220 ml Balance -420 ml -90 ml -110 ml Results/Medications Result Diagram: 04/19/17 0450 04/19/17 0450 Results 24 hrs Laboratory Tests Test 04/18/17 11:30 04/18/17 12:03 04/18/17 16:54 04/19/17 00:05 Blood Gas Specimen Source Blood arterial Arterial Blood Date Drawn 04/18/2017 11:45:07 AM Arterial Blood pH (Temp corrected) 7.405 Arterial Blood pCO2 (Temp correct) 28.8 L Arterial Blood pO2 (Temp corrected) 81.9 Arterial Blood HCO3 17.6 L Arterial Blood Base Excess -5.8 L Arterial Blood Oxygen Saturation 96.1 Jonn Test ACCEPTAB Arterial Blood Gas Puncture Site Right Radial Arterial Blood Carboxyhemoglobin 0.3 Arterial Blood Methemoglobin 0.2 Blood Gas A-a O2 Differential 98.2 H Oxyhemoglobin Percent 95.6 Total Hemoglobin 12.1 Blood Gas Temperature 37.0 Blood Gas Actual Respiration Rate 19 Blood Gas Modality VENT - CPAP FiO2 30.0 Blood Gas High PEEP Setting 5.0 Blood Gas Notified Whom TM Blood Gas Notified Time 04/18/2017 11:55:44 AM Bedside Glucose 112 95 147 Test 04/19/17 04:50 04/19/17 05:52 White Blood Count 47.5 H Red Blood Count 3.13 L Hemoglobin 10.3 L Hematocrit 33.1 L Mean Corpuscular Volume 105.8 H Mean Corpuscular Hemoglobin 32.9 Mean Corpuscular Hemoglobin Concent 31.1 L Red Cell Distribution Width 14.7 H Platelet Count 344 # Mean Platelet Volume 11.1 H Neutrophils % 85.7 H Lymphocytes % 2.5 L Monocytes % 5.5 Eosinophils % 0.0 Basophils % 0.5 Nucleated Red Blood Cells % 0.1 H Neutrophils # 40.7 H Lymphocytes # 1.2 Monocytes # 2.6 H Eosinophils # 0.0 Basophils # 0.3 H Nucleated Red Blood Cells # 0.1 H Sodium Level 143 Potassium Level 3.8 Chloride Level 108 Carbon Dioxide Level 19 L Anion Gap 20 #H Blood Urea Nitrogen 54 H Creatinine 1.27 H Glucose Level 129 Calcium Level 9.3 Phosphorus Level 5.3 #H Magnesium Level 2.2 Total Bilirubin 0.0 L Direct Bilirubin 0.00 Indirect Bilirubin 0.0 Aspartate Amino Transf (AST/SGOT) 32 Alanine Aminotransferase (ALT/SGPT) 97 H Alkaline Phosphatase 153 H Total Protein 6.0 #L Albumin 3.1 L Globulin 2.90 Albumin/Globulin Ratio 1.06 Digoxin Level 0.5 L Bedside Glucose 121 Medications Current Medications Norepinephrine/ Dextrose (Levophed/D5W) 500 ml @ 0 mls/hr TITRATE IV Last administered on 04/14/17 10:24; Admin Dose 18.75 MLS/HR; Start 04/11/17 at 12:30 Aspirin (Aspirin) 325 mg DAILY NGT Last administered on 04/18/17 08:55; Admin Dose 325 MG; Start 04/12/17 at 09:00 Metoprolol Tartrate (Lopressor) 25 mg BID NGT Last administered on 04/18/17 21: 56; Admin Dose 25 MG; Start 04/11/17 at 21:00 Metoprolol Tartrate (Lopressor) 5 mg Q4H PRN IV HR>110 Hold SBP<110 Last administered on 04/18/17 17:32; Admin Dose 5 MG; Start 04/11/17 at 13:30 Lansoprazole 30 mg 30 mg DAILY GTB Last administered on 04/18/17 08:55; Admin Dose 30 MG; Start 04/12/17 at 09:00 Phenylephrine HCl/ Dextrose ([place]uy-Syneph/D5W) 500 ml @ 0 mls/hr TITRATE IV Last administered on 04/12/17 02:52; Admin Dose 75 MLS/HR; Start 04/11/17 at 16:00 Miscellaneous Information 1 ea NOTE XX ; Start 04/11/17 at 16:30 Glucose (Glutose) 15 gm Q15M PRN PO DECREASED GLUCOSE; Start 04/11/17 at 16:30 Glucose (Glutose) 22.5 gm Q15M PRN PO DECREASED GLUCOSE; Start 04/11/17 at 16: 30 Dextrose (D50w Syringe) 25 ml Q15M PRN IV DECREASED GLUCOSE Last administered on 04/12/17 23:56; Admin Dose 25 ML; Start 04/11/17 at 16:30 Dextrose (D50w Syringe) 50 ml Q15M PRN IV DECREASED GLUCOSE; Start 04/11/17 at 16:30 Glucagon (Glucagen) 1 mg Q15M PRN IM DECREASED GLUCOSE; Start 04/11/17 at 16:30 Glucose 15 gm 15 gm Q15M PRN BUCCAL DECREASED GLUCOSE; Start 04/11/17 at 16:30 Midazolam HCl 50 ml @ 1 mls/hr TITRATE IV Last administered on 04/13/17 04:30; Admin Dose 2 MLS/HR; Start 04/11/17 at 23:30 Fentanyl (Sublimaze) 100 ml @ 0.5 mls/hr TITRATE IV Last administered on 02:48; Admin Dose 0.5 MLS/HR; Start 04/12/17 at 09:30 Vancomycin HCl (Vancomycin Oral Syringe) 125 mg Q6 PO Last administered on 05:53; Admin Dose 125 MG; Start 04/12/17 at 12:00 Metoclopramide HCl (Reglan) 10 mg Q6 IV Last administered on 04/19/17 05:54; Admin Dose 10 MG; Start 04/12/17 at 18:00 Insulin Aspart (Novolog Insulin Pen) NOVOLOG *MILD* ALGORI... Q6H SC Last administered on 04/19/17 00:12; Admin Dose 1 UNIT; Start 04/15/17 at 00:00 Furosemide (Lasix) 20 mg DAILY IV Last administered on 04/18/17 08:54; Admin Dose 20 MG; Start 04/16/17 at 09:00 Metronidazole (Flagyl) 500 mg Q8 NGT Last administered on 04/19/17 05:53; Admin Dose 500 MG; Start 04/15/17 at 14:00 IV Flush 10 ml 10 ml PRN PRN IV FLUSH LINE; Start 04/15/17 at 13:00 Ciprofloxacin/ Dextrose (Cipro Ivpb) 200 ml @ 200 mls/hr Q12 IVPB Last administered on 04/18/17 21:56; Admin Dose 200 MLS/HR; Start 04/16/17 at 21:00 Hydrocortisone 25 mg 25 mg TID IV Last administered on 04/18/17 21:55; Admin Dose 25 MG; Start 04/16/17 at 13:00 Meropenem 100 ml @ 200 mls/hr Q12 IVPB Last administered on 04/18/17 22:32; Admin Dose 200 MLS/HR; Start 04/16/17 at 21:00 Vancomycin HCl 750 mg/Sodium Chloride 150 ml @ 75 mls/hr Q36H IVPB Last administered on 04/18/17 12:06; Admin Dose 75 MLS/HR; Start 04/17/17 at 01:00 Caspofungin/ Sodium Chloride (Cancidas/NS) 250 ml @ 250 mls/hr Q24H IVPB Last administered on 04/18/17 08:53; Admin Dose 250 MLS/HR; Start 04/17/17 at 10:00 Amiodarone HCl (Cordarone) 200 mg BID GTB Last administered on 04/18/17 21:55; Admin Dose 200 MG; Start 04/16/17 at 13:00 Diltiazem HCl (Cardizem Iv) 5 mg Q1H PRN IV AFIB GREATER THAN 110 Last administered on 04/17/17 16:41; Admin Dose 5 MG; Start 04/16/17 at 13:00 Enoxaparin Sodium (Lovenox) 40 mg HS SC Last administered on 04/17/17 20:38; Admin Dose 40 MG; Start 04/17/17 at 21:00; Status Future Hold Heparin Sodium (Porcine) (Heparin (5000 Units/0.5 ml)) 5,000 unit BID SC Last administered on 04/18/17 21:58; Admin Dose 5,000 UNIT; Start 04/18/17 at 16:22 Miscellaneous Information (*Order Clarification Bulletin) MEDICATION REQUIRES CLARIFICATION: Q8H XX Last administered on 04/18/17 16:44; Admin Dose 1 EA; Start 04/18/17 at 16:30 Acetaminophen/ Hydrocodone Bitart ([place] (5/325)) 2 tab Q4H PRN NGT MODERATE PAIN LEVEL 4-6 Last administered on 04/18/17 17:14; Admin Dose 2 TAB; Start 04/18 at 17:30 Citalopram Hydrobromide (Celexa) 20 mg DAILY NGT ; Start 04/19/17 at 09:00 Hydralazine HCl (Apresoline) 20 mg Q6H PRN IV sbp ABOVE 160 Last administered on 04/19/17 03:09; Admin Dose 20 MG; Start 04/18/17 at 18:30 Assessment/Plan Chief Complaint/Hosp Course 1. Nonoliguric keyonna. With previously normal baseline creatinine. Etiology is likely secondary to septic KEYONNA with possible ATN -Renal function has been stable, -Continue treatment plan. Supportive care renally dose meds avoid nephrotoxins -Follow-up renal panel - 2. Sepsis, status post shock. Etiology is likely secondary to aspiration pneumonia, -Patient currently off pressors. Remains on antibiotics - Patient's blood cultures have been reviewed. Continue current treatment plan Follow-up with infectious disease 3. Ventilator dependent respiratory failure. Etiology secondary to pneumonia, CHF . Vent settings, ABG been reviewed. Continue current vent settings follow-up with pulmonary 4. Volume overload. Etiology likely secondary to sepsis capillary leak. Possible diastolic heart failure. -Continue low-dose Lasix 5. Elevated troponin. Possible non-STEMI type II. We will continue to monitor follow-up with cardiology 6. History of adrenal insufficiency. -Patient currently on stress steroids, -Appreciate endocrinology evaluation 7. Acute encephalopathy etiologies toxic metabolic, possible anoxic injury. Mental status is improving, patient following commands CT scan showed no acute finding Appreciate Dr. Ellis evaluation -Continue to monitor closely 8. possible acute cholecystitis -Patient's HIDA scan was positive - cholecystostomy drain was not placed due to insufficient fluid. -Ct abd: sludge and small stones in the gallbladder. No gallbladder wall thickening is noted with some pericholecystic fluid is present. Patient off pressors; OGT no output; HIDA positive; IR drain placement attempted yesterday but unable due to not enough fluid to drain. Repeat US showed: Cholelithiasis without definite sonographic evidence of acute cholecystitis; tolerating tube feedings -No surgical intervention required at this time -may need eventual lap rupal as condition permits - will continue to monitor 9. Hypothyroidism continue Synthroid 10. Anemia. Monitor H&H 11. Mineral bone disorder will monitor calcium phosphorus levels 12. h/o tongue cancer with resection 13. History of diastolic heart failure/coronary disease -Continue medical management 14. Leukocytosis. -Etiology is likely secondary sepsis, steroids. -Slowly improving as steroids are being weaned down - Follow-up with infectious disease. 15. Hypomagnesemia. Continue to monitor and replete as needed 16. Left upper extremity swelling. Check a Doppler ultrasound to rule out DVT dysphasia status post PEG continue tube feeding 17. Dysphagia status post PEG continue tube feeding I spent greater than 40 minutes of critical care time with this pt Problems: HILARY RUBIO MD Apr 19, 2017 06:47
--- NOTE | 2017-04-19 06:50 | CONS ---
Date/Time of Note Date/Time of Note DATE: 04/19/17 TIME: 06:48 Consult Date/Type/Reason Admit Date/Time Apr 11, 2017 at 11:28 Initial Consult Date 04/14/17 Type of Consultation: im Ordering Provider: NINA GANDHI DO Subjective This is a 66-year-old female with a past medical history of tongue cancer status post section reconstruction 10 years ago.. The patient approximately 16 months ago had clinical decompensation respiratory failure underwent trach and PEG. The patient was transferred to [facility] where she underwent weaning off of that. The patient was subsequently transferred to assisted as had previous hospital stays for sepsis pneumonia and respiratory failure. Most recently in her last hospital stay follow the patient was successfully decannulated and removal with removal of PEG. She was subsequently transferred back to custodial facility. She now presents yesterday to [facility] emergency room with hypoxemic respiratory failure. After an episode of acid emesis and concern of aspiration pneumonitis pneumonia. In the emergency room the patient was critically ill was intubated was in septic shock placed on pressure support IV pressors and IV antibiotics and transferred to the intensive care unit for further care. In the emergency room the patient had a CT of the abdomen pelvis which showed evidence of pericholecystic fluid possile cholecystitis. Patient also had noted infiltrates in her lungs bilaterally and noted to be in shock.Patient had normal renal function on admission her creatinine is increased. Interim events was extubated but went into respiratory distress requiring bipap. IR cancelled procedure poc reviewed with and dr. gandhi. GENERAL: on bipap VITAL SIGNS: see below. HEENT: Pupils equal, round, and reactive to light CARDIAC: S1, S2, 1/6 systolic ejection murmur CHEST: Diminished air entry bilaterally. ABDOMEN: Mildly distended. Bowel sounds present no guarding or rebound EXTREMITIES: No cyanosis, clubbing edema +1 NEUROLOGIC: Generalized weakness Objective Vital Signs Date Time Temp Pulse Resp B/P Pulse Ox O2 Delivery O2 Flow Rate FiO2 04/19/17 06:00 98.8 109 21 134/74 100 BIPAP 04/19/17 05:56 40 04/18/17 22:00 3.0 Intake and Output 04/18/17 04/18/17 04/19/17 15:00 23:00 07:00 Intake Total 600 ml 300 ml 110 ml Output Total 1020 ml 390 ml 220 ml Balance -420 ml -90 ml -110 ml Results/Medications Result Diagram: 04/19/17 0450 04/19/17 0450 Results 24 hrs Laboratory Tests Test 04/18/17 11:30 04/18/17 12:03 04/18/17 16:54 04/19/17 00:05 Blood Gas Specimen Source Blood arterial Arterial Blood Date Drawn 04/18/2017 11:45:07 AM Arterial Blood pH (Temp corrected) 7.405 Arterial Blood pCO2 (Temp correct) 28.8 L Arterial Blood pO2 (Temp corrected) 81.9 Arterial Blood HCO3 17.6 L Arterial Blood Base Excess -5.8 L Arterial Blood Oxygen Saturation 96.1 Jonn Test ACCEPTAB Arterial Blood Gas Puncture Site Right Radial Arterial Blood Carboxyhemoglobin 0.3 Arterial Blood Methemoglobin 0.2 Blood Gas A-a O2 Differential 98.2 H Oxyhemoglobin Percent 95.6 Total Hemoglobin 12.1 Blood Gas Temperature 37.0 Blood Gas Actual Respiration Rate 19 Blood Gas Modality VENT - CPAP FiO2 30.0 Blood Gas High PEEP Setting 5.0 Blood Gas Notified Whom TM Blood Gas Notified Time 04/18/2017 11:55:44 AM Bedside Glucose 112 95 147 Test 04/19/17 04:50 04/19/17 05:52 White Blood Count 47.5 H Red Blood Count 3.13 L Hemoglobin 10.3 L Hematocrit 33.1 L Mean Corpuscular Volume 105.8 H Mean Corpuscular Hemoglobin 32.9 Mean Corpuscular Hemoglobin Concent 31.1 L Red Cell Distribution Width 14.7 H Platelet Count 344 # Mean Platelet Volume 11.1 H Neutrophils % 85.7 H Lymphocytes % 2.5 L Monocytes % 5.5 Eosinophils % 0.0 Basophils % 0.5 Nucleated Red Blood Cells % 0.1 H Neutrophils # 40.7 H Lymphocytes # 1.2 Monocytes # 2.6 H Eosinophils # 0.0 Basophils # 0.3 H Nucleated Red Blood Cells # 0.1 H Sodium Level 143 Potassium Level 3.8 Chloride Level 108 Carbon Dioxide Level 19 L Anion Gap 20 #H Blood Urea Nitrogen 54 H Creatinine 1.27 H Glucose Level 129 Calcium Level 9.3 Phosphorus Level 5.3 #H Magnesium Level 2.2 Total Bilirubin 0.0 L Direct Bilirubin 0.00 Indirect Bilirubin 0.0 Aspartate Amino Transf (AST/SGOT) 32 Alanine Aminotransferase (ALT/SGPT) 97 H Alkaline Phosphatase 153 H Total Protein 6.0 #L Albumin 3.1 L Globulin 2.90 Albumin/Globulin Ratio 1.06 Digoxin Level 0.5 L Bedside Glucose 121 Medications Current Medications Norepinephrine/ Dextrose (Levophed/D5W) 500 ml @ 0 mls/hr TITRATE IV Last administered on 04/14/17 10:24; Admin Dose 18.75 MLS/HR; Start 04/11/17 at 12:30 Aspirin (Aspirin) 325 mg DAILY NGT Last administered on 04/18/17 08:55; Admin Dose 325 MG; Start 04/12/17 at 09:00 Metoprolol Tartrate (Lopressor) 25 mg BID NGT Last administered on 04/18/17 21: 56; Admin Dose 25 MG; Start 04/11/17 at 21:00 Metoprolol Tartrate (Lopressor) 5 mg Q4H PRN IV HR>110 Hold SBP<110 Last administered on 04/18/17 17:32; Admin Dose 5 MG; Start 04/11/17 at 13:30 Lansoprazole 30 mg 30 mg DAILY GTB Last administered on 04/18/17 08:55; Admin Dose 30 MG; Start 04/12/17 at 09:00 Phenylephrine HCl/ Dextrose ([place]-Syneph/D5W) 500 ml @ 0 mls/hr TITRATE IV Last administered on 04/12/17 02:52; Admin Dose 75 MLS/HR; Start 04/11/17 at 16:00 Miscellaneous Information 1 ea NOTE XX ; Start 04/11/17 at 16:30 Glucose (Glutose) 15 gm Q15M PRN PO DECREASED GLUCOSE; Start 04/11/17 at 16:30 Glucose (Glutose) 22.5 gm Q15M PRN PO DECREASED GLUCOSE; Start 04/11/17 at 16: 30 Dextrose (D50w Syringe) 25 ml Q15M PRN IV DECREASED GLUCOSE Last administered on 04/12/17 23:56; Admin Dose 25 ML; Start 04/11/17 at 16:30 Dextrose (D50w Syringe) 50 ml Q15M PRN IV DECREASED GLUCOSE; Start 04/11/17 at 16:30 Glucagon (Glucagen) 1 mg Q15M PRN IM DECREASED GLUCOSE; Start 04/11/17 at 16:30 Glucose 15 gm 15 gm Q15M PRN BUCCAL DECREASED GLUCOSE; Start 04/11/17 at 16:30 Midazolam HCl 50 ml @ 1 mls/hr TITRATE IV Last administered on 04/13/17 04:30; Admin Dose 2 MLS/HR; Start 04/11/17 at 23:30 Fentanyl (Sublimaze) 100 ml @ 0.5 mls/hr TITRATE IV Last administered on 02:48; Admin Dose 0.5 MLS/HR; Start 04/12/17 at 09:30 Vancomycin HCl (Vancomycin Oral Syringe) 125 mg Q6 PO Last administered on 05:53; Admin Dose 125 MG; Start 04/12/17 at 12:00 Metoclopramide HCl (Reglan) 10 mg Q6 IV Last administered on 04/19/17 05:54; Admin Dose 10 MG; Start 04/12/17 at 18:00 Insulin Aspart (Novolog Insulin Pen) NOVOLOG *MILD* ALGORI... Q6H SC Last administered on 04/19/17 00:12; Admin Dose 1 UNIT; Start 04/15/17 at 00:00 Furosemide (Lasix) 20 mg DAILY IV Last administered on 04/18/17 08:54; Admin Dose 20 MG; Start 04/16/17 at 09:00 Metronidazole (Flagyl) 500 mg Q8 NGT Last administered on 04/19/17 05:53; Admin Dose 500 MG; Start 04/15/17 at 14:00 IV Flush 10 ml 10 ml PRN PRN IV FLUSH LINE; Start 04/15/17 at 13:00 Ciprofloxacin/ Dextrose (Cipro Ivpb) 200 ml @ 200 mls/hr Q12 IVPB Last administered on 04/18/17 21:56; Admin Dose 200 MLS/HR; Start 04/16/17 at 21:00 Hydrocortisone 25 mg 25 mg TID IV Last administered on 04/18/17 21:55; Admin Dose 25 MG; Start 04/16/17 at 13:00 Meropenem 100 ml @ 200 mls/hr Q12 IVPB Last administered on 04/18/17 22:32; Admin Dose 200 MLS/HR; Start 04/16/17 at 21:00 Vancomycin HCl 750 mg/Sodium Chloride 150 ml @ 75 mls/hr Q36H IVPB Last administered on 04/18/17 12:06; Admin Dose 75 MLS/HR; Start 04/17/17 at 01:00 Caspofungin/ Sodium Chloride (Cancidas/NS) 250 ml @ 250 mls/hr Q24H IVPB Last administered on 04/18/17 08:53; Admin Dose 250 MLS/HR; Start 04/17/17 at 10:00 Amiodarone HCl (Cordarone) 200 mg BID GTB Last administered on 04/18/17 21:55; Admin Dose 200 MG; Start 04/16/17 at 13:00 Diltiazem HCl (Cardizem Iv) 5 mg Q1H PRN IV AFIB GREATER THAN 110 Last administered on 04/17/17 16:41; Admin Dose 5 MG; Start 04/16/17 at 13:00 Enoxaparin Sodium (Lovenox) 40 mg HS SC Last administered on 04/17/17 20:38; Admin Dose 40 MG; Start 04/17/17 at 21:00; Status Future Hold Heparin Sodium (Porcine) (Heparin (5000 Units/0.5 ml)) 5,000 unit BID SC Last administered on 04/18/17 21:58; Admin Dose 5,000 UNIT; Start 04/18/17 at 16:22 Miscellaneous Information (*Order Clarification Bulletin) MEDICATION REQUIRES CLARIFICATION: Q8H XX Last administered on 04/18/17 16:44; Admin Dose 1 EA; Start 04/18/17 at 16:30 Acetaminophen/ Hydrocodone Bitart ([place] (5/325)) 2 tab Q4H PRN NGT MODERATE PAIN LEVEL 4-6 Last administered on 04/18/17 17:14; Admin Dose 2 TAB; Start 04/18 at 17:30 Citalopram Hydrobromide (Celexa) 20 mg DAILY NGT ; Start 04/19/17 at 09:00 Hydralazine HCl (Apresoline) 20 mg Q6H PRN IV sbp ABOVE 160 Last administered on 04/19/17 03:09; Admin Dose 20 MG; Start 04/18/17 at 18:30 Assessment/Plan Chief Complaint/Hosp Course 1. Nonoliguric keyonna. With previously normal baseline creatinine. Etiology is likely secondary to septic KEYONNA with possible ATN -Renal function has been stable, -Continue treatment plan. Supportive care renally dose meds avoid nephrotoxins -Follow-up renal panel - 2. Sepsis, status post shock. Etiology is likely secondary to aspiration pneumonia, -Patient currently off pressors. Remains on antibiotics - Patient's blood cultures have been reviewed. Continue current treatment plan Follow-up with infectious disease 3. sp Ventilator dependent respiratory failure. Etiology secondary to pneumonia, CHF -extubated successfully but had some tachypnea and required bipap and suctioning overnight. c Continue pulmonary toilet and follow-up with pulmonary 4. Volume overload. Etiology likely secondary to sepsis capillary leak. Possible diastolic heart failure. -Continue low-dose Lasix 5. Elevated troponin. Possible non-STEMI type II. We will continue to monitor follow-up with cardiology 6. History of adrenal insufficiency. -Patient currently on stress steroids, -Appreciate endocrinology evaluation 7. Acute encephalopathy etiologies toxic metabolic, possible anoxic injury. Mental status is improving, patient following commands CT scan showed no acute finding Appreciate Dr. Ellis evaluation -Continue to monitor closely 8. possible acute cholecystitis -Patient's HIDA scan was positive - cholecystostomy drain was not placed due to insufficient fluid. -Ct abd: sludge and small stones in the gallbladder. No gallbladder wall thickening is noted with some pericholecystic fluid is present. Patient off pressors; OGT no output; HIDA positive; IR drain placement attempted yesterday but unable due to not enough fluid to drain. Repeat US showed: Cholelithiasis without definite sonographic evidence of acute cholecystitis; tolerating tube feedings -No surgical intervention required at this time -may need eventual lap rupal as condition permits - will continue to monitor 9. Hypothyroidism continue Synthroid 10. Anemia. Monitor H&H 11. Mineral bone disorder will monitor calcium phosphorus levels 12. h/o tongue cancer with resection 13. History of diastolic heart failure/coronary disease -Continue medical management 14. Leukocytosis. -Etiology is likely secondary sepsis, steroids. -Slowly improving as steroids are being weaned down - Follow-up with infectious disease. 15. Hypomagnesemia. Continue to monitor and replete as needed 16. Left upper extremity swelling. Check a Doppler ultrasound to rule out DVT dysphasia status post PEG continue tube feeding 17. Dysphagia status post PEG continue tube feeding I spent greater than 40 minutes of critical care time with this pt Problems: HILARY RUBIO MD Apr 19, 2017 06:49
--- NOTE | 2017-04-19 07:18 | CONS ---
Date/Time of Note Date/Time of Note DATE: 04/19/17 TIME: 07:15 Assessment/Plan Assessment/Plan Problems: (1) Cholelithiasis Status: Chronic Comment: This is noted. Radiology was unable to do a separate drainage procedure. Ultimately she is going to need some type of procedure done when she is more medically stable. Defer off to radiology and primary care. Possibility of GI performing a stenting procedure is a consideration if indicated. Qualifiers: Cholelithiasis location: gallbladder Cholecystitis presence: with cholecystitis Cholecystitis acuity: acute and chronic Biliary obstruction: without biliary obstruction Qualified Code: K80.12 - Calculus of gallbladder with acute on chronic cholecystitis without obstruction (2) Infectious disease Status: Acute Comment: Patient's on multiple antibiotics and still sick critically ill. Infectious disease is coordinating care (3) Hypothyroidism Status: Chronic Comment: Remains on thyroid hormone replacement therapy. Qualifiers: Hypothyroidism type: acquired Qualified Code: E03.9 - Acquired hypothyroidism (4) Steroid dependence Status: Chronic Comment: She is stable at the lower dosage of steroids. Please note the white count has not come down believe the elevated white count is only mildly partially due to the steroid treatment. Continue with the steroids as previously outlined. Consultation Date/Type/Reason Admit Date/Time Apr 11, 2017 at 11:28 Initial Consult Date 04/14/17 Type of Consultation: Endocrinology Reason for Consultation Iatrogenic adrenal insufficiency; hypothyroidism; sepsis syndrome; respiratory failure; Referring Provider: NINA MACIEL DO 24 HR Interval Summary Free Text/Dictation Patient extubated last p.m. but now on BiPAP Subjective hx not possible: pt non-verbal, pt critical status Exam/Review of Systems Vital Signs Vitals Vital Signs Date Time Temp Pulse Resp B/P Pulse Ox O2 Delivery O2 Flow Rate FiO2 04/19/17 06:00 98.8 109 21 134/74 100 BIPAP 04/19/17 05:56 40 04/18/17 22:00 3.0 Intake and Output 04/18/17 04/18/17 04/19/17 15:00 23:00 07:00 Intake Total 600 ml 300 ml 110 ml Output Total 1020 ml 390 ml 220 ml Balance -420 ml -90 ml -110 ml Exam Constitutional: non-verbal Respiratory: crackles/rales Cardiovascular: nl pulses, regular rate and rhythm Results Result Diagram: 04/19/17 0450 04/19/17 0450 Results 24 hrs Laboratory Tests Test 04/18/17 11:30 04/18/17 12:03 04/18/17 16:54 04/19/17 00:05 Blood Gas Specimen Source Blood arterial Arterial Blood Date Drawn 04/18/2017 11:45:07 AM Arterial Blood pH (Temp corrected) 7.405 Arterial Blood pCO2 (Temp correct) 28.8 L Arterial Blood pO2 (Temp corrected) 81.9 Arterial Blood HCO3 17.6 L Arterial Blood Base Excess -5.8 L Arterial Blood Oxygen Saturation 96.1 Jonn Test ACCEPTAB Arterial Blood Gas Puncture Site Right Radial Arterial Blood Carboxyhemoglobin 0.3 Arterial Blood Methemoglobin 0.2 Blood Gas A-a O2 Differential 98.2 H Oxyhemoglobin Percent 95.6 Total Hemoglobin 12.1 Blood Gas Temperature 37.0 Blood Gas Actual Respiration Rate 19 Blood Gas Modality VENT - CPAP FiO2 30.0 Blood Gas High PEEP Setting 5.0 Blood Gas Notified Whom TM Blood Gas Notified Time 04/18/2017 11:55:44 AM Bedside Glucose 112 95 147 Test 04/19/17 04:50 04/19/17 05:52 White Blood Count 47.5 H Red Blood Count 3.13 L Hemoglobin 10.3 L Hematocrit 33.1 L Mean Corpuscular Volume 105.8 H Mean Corpuscular Hemoglobin 32.9 Mean Corpuscular Hemoglobin Concent 31.1 L Red Cell Distribution Width 14.7 H Platelet Count 344 # Mean Platelet Volume 11.1 H Neutrophils % 85.7 H Lymphocytes % 2.5 L Monocytes % 5.5 Eosinophils % 0.0 Basophils % 0.5 Nucleated Red Blood Cells % 0.1 H Neutrophils # 40.7 H Lymphocytes # 1.2 Monocytes # 2.6 H Eosinophils # 0.0 Basophils # 0.3 H Nucleated Red Blood Cells # 0.1 H Sodium Level 143 Potassium Level 3.8 Chloride Level 108 Carbon Dioxide Level 19 L Anion Gap 20 #H Blood Urea Nitrogen 54 H Creatinine 1.27 H Glucose Level 129 Calcium Level 9.3 Phosphorus Level 5.3 #H Magnesium Level 2.2 Total Bilirubin 0.0 L Direct Bilirubin 0.00 Indirect Bilirubin 0.0 Aspartate Amino Transf (AST/SGOT) 32 Alanine Aminotransferase (ALT/SGPT) 97 H Alkaline Phosphatase 153 H Total Protein 6.0 #L Albumin 3.1 L Globulin 2.90 Albumin/Globulin Ratio 1.06 Digoxin Level 0.5 L Bedside Glucose 121 Medications Medications Current Medications Norepinephrine/ Dextrose (Levophed/D5W) 500 ml @ 0 mls/hr TITRATE IV Last administered on 04/14/17 10:24; Admin Dose 18.75 MLS/HR; Start 04/11/17 at 12:30 Aspirin (Aspirin) 325 mg DAILY NGT Last administered on 04/18/17 08:55; Admin Dose 325 MG; Start 04/12/17 at 09:00 Metoprolol Tartrate (Lopressor) 25 mg BID NGT Last administered on 04/18/17 21: 56; Admin Dose 25 MG; Start 04/11/17 at 21:00 Metoprolol Tartrate (Lopressor) 5 mg Q4H PRN IV HR>110 Hold SBP<110 Last administered on 04/18/17 17:32; Admin Dose 5 MG; Start 04/11/17 at 13:30 Lansoprazole 30 mg 30 mg DAILY GTB Last administered on 04/18/17 08:55; Admin Dose 30 MG; Start 04/12/17 at 09:00 Phenylephrine HCl/ Dextrose (Chuy-Syneph/D5W) 500 ml @ 0 mls/hr TITRATE IV Last administered on 04/12/17 02:52; Admin Dose 75 MLS/HR; Start 04/11/17 at 16:00 Miscellaneous Information 1 ea NOTE XX ; Start 04/11/17 at 16:30 Glucose (Glutose) 15 gm Q15M PRN PO DECREASED GLUCOSE; Start 04/11/17 at 16:30 Glucose (Glutose) 22.5 gm Q15M PRN PO DECREASED GLUCOSE; Start 04/11/17 at 16: 30 Dextrose (D50w Syringe) 25 ml Q15M PRN IV DECREASED GLUCOSE Last administered on 04/12/17 23:56; Admin Dose 25 ML; Start 04/11/17 at 16:30 Dextrose (D50w Syringe) 50 ml Q15M PRN IV DECREASED GLUCOSE; Start 04/11/17 at 16:30 Glucagon (Glucagen) 1 mg Q15M PRN IM DECREASED GLUCOSE; Start 04/11/17 at 16:30 Glucose 15 gm 15 gm Q15M PRN BUCCAL DECREASED GLUCOSE; Start 04/11/17 at 16:30 Midazolam HCl 50 ml @ 1 mls/hr TITRATE IV Last administered on 04/13/17 04:30; Admin Dose 2 MLS/HR; Start 04/11/17 at 23:30 Fentanyl (Sublimaze) 100 ml @ 0.5 mls/hr TITRATE IV Last administered on 02:48; Admin Dose 0.5 MLS/HR; Start 04/12/17 at 09:30 Vancomycin HCl (Vancomycin Oral Syringe) 125 mg Q6 PO Last administered on 05:53; Admin Dose 125 MG; Start 04/12/17 at 12:00 Metoclopramide HCl (Reglan) 10 mg Q6 IV Last administered on 04/19/17 05:54; Admin Dose 10 MG; Start 04/12/17 at 18:00 Insulin Aspart (Novolog Insulin Pen) NOVOLOG *MILD* ALGORI... Q6H SC Last administered on 04/19/17 00:12; Admin Dose 1 UNIT; Start 04/15/17 at 00:00 Furosemide (Lasix) 20 mg DAILY IV Last administered on 04/18/17 08:54; Admin Dose 20 MG; Start 04/16/17 at 09:00 Metronidazole (Flagyl) 500 mg Q8 NGT Last administered on 04/19/17 05:53; Admin Dose 500 MG; Start 04/15/17 at 14:00 IV Flush 10 ml 10 ml PRN PRN IV FLUSH LINE; Start 04/15/17 at 13:00 Ciprofloxacin/ Dextrose (Cipro Ivpb) 200 ml @ 200 mls/hr Q12 IVPB Last administered on 04/18/17 21:56; Admin Dose 200 MLS/HR; Start 04/16/17 at 21:00 Hydrocortisone 25 mg 25 mg TID IV Last administered on 04/18/17 21:55; Admin Dose 25 MG; Start 04/16/17 at 13:00 Meropenem 100 ml @ 200 mls/hr Q12 IVPB Last administered on 04/18/17 22:32; Admin Dose 200 MLS/HR; Start 04/16/17 at 21:00 Vancomycin HCl 750 mg/Sodium Chloride 150 ml @ 75 mls/hr Q36H IVPB Last administered on 04/18/17 12:06; Admin Dose 75 MLS/HR; Start 04/17/17 at 01:00 Caspofungin/ Sodium Chloride (Cancidas/NS) 250 ml @ 250 mls/hr Q24H IVPB Last administered on 04/18/17 08:53; Admin Dose 250 MLS/HR; Start 04/17/17 at 10:00 Amiodarone HCl (Cordarone) 200 mg BID GTB Last administered on 04/18/17 21:55; Admin Dose 200 MG; Start 04/16/17 at 13:00 Diltiazem HCl (Cardizem Iv) 5 mg Q1H PRN IV AFIB GREATER THAN 110 Last administered on 04/17/17 16:41; Admin Dose 5 MG; Start 04/16/17 at 13:00 Enoxaparin Sodium (Lovenox) 40 mg HS SC Last administered on 04/17/17 20:38; Admin Dose 40 MG; Start 04/17/17 at 21:00; Status Future Hold Heparin Sodium (Porcine) (Heparin (5000 Units/0.5 ml)) 5,000 unit BID SC Last administered on 04/18/17 21:58; Admin Dose 5,000 UNIT; Start 04/18/17 at 16:22 Miscellaneous Information (*Order Clarification Bulletin) MEDICATION REQUIRES CLARIFICATION: Q8H XX Last administered on 04/18/17 16:44; Admin Dose 1 EA; Start 04/18/17 at 16:30 Acetaminophen/ Hydrocodone Bitart ([place] (5/325)) 2 tab Q4H PRN NGT MODERATE PAIN LEVEL 4-6 Last administered on 04/18/17 17:14; Admin Dose 2 TAB; Start 04/18 at 17:30 Citalopram Hydrobromide (Celexa) 20 mg DAILY NGT ; Start 04/19/17 at 09:00 Hydralazine HCl (Apresoline) 20 mg Q6H PRN IV sbp ABOVE 160 Last administered on 04/19/17 03:09; Admin Dose 20 MG; Start 04/18/17 at 18:30 IZZY TYLER MD Apr 19, 2017 07:18
--- NOTE | 2017-04-19 09:03 | CONS ---
Date/Time of Note Date/Time of Note DATE: 04/19/17 TIME: 08:59 Consult Date/Type/Reason Admit Date/Time Apr 11, 2017 at 11:28 Initial Consult Date 04/12/17 Type of Consultation: Pulm/CCM Ordering Provider: NINA MACIEL DO Subjective Extubated, yet on NiPPV via BiPAP. Objective Vital Signs Date Time Temp Pulse Resp B/P Pulse Ox O2 Delivery O2 Flow Rate FiO2 04/19/17 08:30 115 22 150/100 99 BIPAP 04/19/17 08:00 98.4 04/19/17 05:56 40 04/18/17 22:00 3.0 Intake and Output 04/18/17 04/18/17 04/19/17 15:00 23:00 07:00 Intake Total 600 ml 300 ml 110 ml Output Total 1020 ml 390 ml 220 ml Balance -420 ml -90 ml -110 ml Exam HEENT: Neck supple; no JVD; no LAD; on BIPAP CVS: RRR, S1 and S2 CHEST: Diminished BS b/l ABD: Soft, NT, + BS EXT: No c/c/e Results/Medications Result Diagram: 04/19/17 0450 04/19/17 0450 Results 24 hrs Laboratory Tests Test 04/18/17 11:30 04/18/17 12:03 04/18/17 16:54 04/19/17 00:05 Blood Gas Specimen Source Blood arterial Arterial Blood Date Drawn 04/18/2017 11:45:07 AM Arterial Blood pH (Temp corrected) 7.405 Arterial Blood pCO2 (Temp correct) 28.8 L Arterial Blood pO2 (Temp corrected) 81.9 Arterial Blood HCO3 17.6 L Arterial Blood Base Excess -5.8 L Arterial Blood Oxygen Saturation 96.1 Jonn Test ACCEPTAB Arterial Blood Gas Puncture Site Right Radial Arterial Blood Carboxyhemoglobin 0.3 Arterial Blood Methemoglobin 0.2 Blood Gas A-a O2 Differential 98.2 H Oxyhemoglobin Percent 95.6 Total Hemoglobin 12.1 Blood Gas Temperature 37.0 Blood Gas Actual Respiration Rate 19 Blood Gas Modality VENT - CPAP FiO2 30.0 Blood Gas High PEEP Setting 5.0 Blood Gas Notified Whom TM Blood Gas Notified Time 04/18/2017 11:55:44 AM Bedside Glucose 112 95 147 Test 04/19/17 04:50 04/19/17 05:52 White Blood Count 47.5 H Red Blood Count 3.13 L Hemoglobin 10.3 L Hematocrit 33.1 L Mean Corpuscular Volume 105.8 H Mean Corpuscular Hemoglobin 32.9 Mean Corpuscular Hemoglobin Concent 31.1 L Red Cell Distribution Width 14.7 H Platelet Count 344 # Mean Platelet Volume 11.1 H Neutrophils % 85.7 H Lymphocytes % 2.5 L Monocytes % 5.5 Eosinophils % 0.0 Basophils % 0.5 Nucleated Red Blood Cells % 0.1 H Neutrophils # 40.7 H Lymphocytes # 1.2 Monocytes # 2.6 H Eosinophils # 0.0 Basophils # 0.3 H Nucleated Red Blood Cells # 0.1 H Sodium Level 143 Potassium Level 3.8 Chloride Level 108 Carbon Dioxide Level 19 L Anion Gap 20 #H Blood Urea Nitrogen 54 H Creatinine 1.27 H Glucose Level 129 Calcium Level 9.3 Phosphorus Level 5.3 #H Magnesium Level 2.2 Total Bilirubin 0.0 L Direct Bilirubin 0.00 Indirect Bilirubin 0.0 Aspartate Amino Transf (AST/SGOT) 32 Alanine Aminotransferase (ALT/SGPT) 97 H Alkaline Phosphatase 153 H Total Protein 6.0 #L Albumin 3.1 L Globulin 2.90 Albumin/Globulin Ratio 1.06 Digoxin Level 0.5 L Bedside Glucose 121 Medications Current Medications Norepinephrine/ Dextrose (Levophed/D5W) 500 ml @ 0 mls/hr TITRATE IV Last administered on 04/14/17 10:24; Admin Dose 18.75 MLS/HR; Start 04/11/17 at 12:30 Aspirin (Aspirin) 325 mg DAILY NGT Last administered on 04/18/17 08:55; Admin Dose 325 MG; Start 04/12/17 at 09:00 Metoprolol Tartrate (Lopressor) 25 mg BID NGT Last administered on 04/18/17 21: 56; Admin Dose 25 MG; Start 04/11/17 at 21:00 Metoprolol Tartrate (Lopressor) 5 mg Q4H PRN IV HR>110 Hold SBP<110 Last administered on 04/18/17 17:32; Admin Dose 5 MG; Start 04/11/17 at 13:30 Lansoprazole 30 mg 30 mg DAILY GTB Last administered on 04/18/17 08:55; Admin Dose 30 MG; Start 04/12/17 at 09:00 Phenylephrine HCl/ Dextrose (Chuy-Syneph/D5W) 500 ml @ 0 mls/hr TITRATE IV Last administered on 04/12/17 02:52; Admin Dose 75 MLS/HR; Start 04/11/17 at 16:00 Miscellaneous Information 1 ea NOTE XX ; Start 04/11/17 at 16:30 Glucose (Glutose) 15 gm Q15M PRN PO DECREASED GLUCOSE; Start 04/11/17 at 16:30 Glucose (Glutose) 22.5 gm Q15M PRN PO DECREASED GLUCOSE; Start 04/11/17 at 16: 30 Dextrose (D50w Syringe) 25 ml Q15M PRN IV DECREASED GLUCOSE Last administered on 04/12/17 23:56; Admin Dose 25 ML; Start 04/11/17 at 16:30 Dextrose (D50w Syringe) 50 ml Q15M PRN IV DECREASED GLUCOSE; Start 04/11/17 at 16:30 Glucagon (Glucagen) 1 mg Q15M PRN IM DECREASED GLUCOSE; Start 04/11/17 at 16:30 Glucose 15 gm 15 gm Q15M PRN BUCCAL DECREASED GLUCOSE; Start 04/11/17 at 16:30 Midazolam HCl 50 ml @ 1 mls/hr TITRATE IV Last administered on 04/13/17 04:30; Admin Dose 2 MLS/HR; Start 04/11/17 at 23:30 Fentanyl (Sublimaze) 100 ml @ 0.5 mls/hr TITRATE IV Last administered on 02:48; Admin Dose 0.5 MLS/HR; Start 04/12/17 at 09:30 Vancomycin HCl (Vancomycin Oral Syringe) 125 mg Q6 PO Last administered on 05:53; Admin Dose 125 MG; Start 04/12/17 at 12:00 Metoclopramide HCl (Reglan) 10 mg Q6 IV Last administered on 04/19/17 05:54; Admin Dose 10 MG; Start 04/12/17 at 18:00 Insulin Aspart (Novolog Insulin Pen) NOVOLOG *MILD* ALGORI... Q6H SC Last administered on 04/19/17 00:12; Admin Dose 1 UNIT; Start 04/15/17 at 00:00 Furosemide (Lasix) 20 mg DAILY IV Last administered on 04/18/17 08:54; Admin Dose 20 MG; Start 04/16/17 at 09:00 Metronidazole (Flagyl) 500 mg Q8 NGT Last administered on 04/19/17 05:53; Admin Dose 500 MG; Start 04/15/17 at 14:00 IV Flush 10 ml 10 ml PRN PRN IV FLUSH LINE; Start 04/15/17 at 13:00 Ciprofloxacin/ Dextrose (Cipro Ivpb) 200 ml @ 200 mls/hr Q12 IVPB Last administered on 04/18/17 21:56; Admin Dose 200 MLS/HR; Start 04/16/17 at 21:00 Hydrocortisone 25 mg 25 mg TID IV Last administered on 04/18/17 21:55; Admin Dose 25 MG; Start 04/16/17 at 13:00 Meropenem 100 ml @ 200 mls/hr Q12 IVPB Last administered on 04/18/17 22:32; Admin Dose 200 MLS/HR; Start 04/16/17 at 21:00 Vancomycin HCl 750 mg/Sodium Chloride 150 ml @ 75 mls/hr Q36H IVPB Last administered on 04/18/17 12:06; Admin Dose 75 MLS/HR; Start 04/17/17 at 01:00 Caspofungin/ Sodium Chloride (Cancidas/NS) 250 ml @ 250 mls/hr Q24H IVPB Last administered on 04/18/17 08:53; Admin Dose 250 MLS/HR; Start 04/17/17 at 10:00 Amiodarone HCl (Cordarone) 200 mg BID GTB Last administered on 04/18/17 21:55; Admin Dose 200 MG; Start 04/16/17 at 13:00 Diltiazem HCl (Cardizem Iv) 5 mg Q1H PRN IV AFIB GREATER THAN 110 Last administered on 04/17/17 16:41; Admin Dose 5 MG; Start 04/16/17 at 13:00 Enoxaparin Sodium (Lovenox) 40 mg HS SC Last administered on 04/17/17 20:38; Admin Dose 40 MG; Start 04/17/17 at 21:00; Status Future Hold Heparin Sodium (Porcine) (Heparin (5000 Units/0.5 ml)) 5,000 unit BID SC Last administered on 04/18/17 21:58; Admin Dose 5,000 UNIT; Start 04/18/17 at 16:22 Miscellaneous Information (*Order Clarification Bulletin) MEDICATION REQUIRES CLARIFICATION: Q8H XX Last administered on 04/18/17 16:44; Admin Dose 1 EA; Start 04/18/17 at 16:30 Acetaminophen/ Hydrocodone Bitart ([place] (5/325)) 2 tab Q4H PRN NGT MODERATE PAIN LEVEL 4-6 Last administered on 04/18/17 17:14; Admin Dose 2 TAB; Start 04/18 at 17:30 Citalopram Hydrobromide (Celexa) 20 mg DAILY NGT ; Start 04/19/17 at 09:00 Hydralazine HCl (Apresoline) 20 mg Q6H PRN IV sbp ABOVE 160 Last administered on 04/19/17 03:09; Admin Dose 20 MG; Start 04/18/17 at 18:30 Assessment/Plan Chief Complaint/Hosp Course Briefly, this is a 66-year-old female with a history of chronic resp failure s/ p prolonged hospitalization and trach, recently decannulated ~ 3 weeks ago, dysphagia s/p PEG, admitted 2 [facility] prior from [facility] with severe septic shock [facility]. Problems: Additional Assessment/Plan IMP: 1. Status post septic Shock--likely due to multilobar aspiration pneumonia vs. HCAP possibly secondary to acute cholecystitis also 2. Multifocal pneumonia aspiration vs. HCAP 3. Respiratory Failure 4. Status post lactic acidosis. Persistent leukocytosis, improved today 5. Demand Ischemia 6. Cholecystitis, pending percutaneous drainage 7. Encephalopathy toxic metabolic resolving RECS: 1. IVF's 2. Aspiration precautions 3. Continue antibiotics per primary team and infectious diseases 4. Continue BiPAP--> low threshold for reintubation 5. Follow WBC 6. Would hold TFs given chance of reintubation 7. Neurology recommendations 8. Percutaneous drainage of gallbladder, surgical recommendations Critical care time 40 minutes. MAUREEN COREA MD Apr 19, 2017 09:03
[2017-04-19] MEDS: CITALOPRAM 20 MG TAB NGT SCH (09:21)
[2017-04-19] MEDS: ASPIRIN 325 MG TAB NGT SCH (09:21)
[2017-04-19] MEDS: LANSOPRAZOLE 30 MG CAP GTB SCH (09:21)
[2017-04-19] MEDS: CIPROFLOXACIN 400MG/D5W 200 ML IVPB SCH ×2 (09:22→21:14)
[2017-04-19] MEDS: METOPROLOL 25 MG TAB NGT SCH ×2 (09:22→21:14)
[2017-04-19] MEDS: FUROSEMIDE 20 MG INJ IV SCH (09:22)
[2017-04-19] MEDS: AMIODARONE 200 MG TAB GTB SCH ×2 (09:22→21:13)
[2017-04-19] MEDS: HYDROCORTISONE 100 MG INJ IV SCH ×3 (09:22→21:14)
[2017-04-19] MEDS: HEPARIN 5,000 UNIT/0.5 ML VIAL SC SCH ×2 (09:26→21:32)
[2017-04-19] MEDS: CASPOFUNGIN 35 MG in SOD CHLORIDE 0.9% 250 ML IVPB SCH (09:30)
[2017-04-19 09:31] LABS: AADO2 Arterial 165.2 mmHg (7.0-24.0); Allen Test ACCEPTAB; Arterial Base Excess -6.5 mmol/L (-3.0-3); Arterial COHb 0.3 % (0.0-3.0); Arterial HCO3 17.8 mmol/L (22.0-26.0); Arterial MetHb 0.4 % (0.0-1.5); Arterial Total Hemglobin 11.6 g/dl (12.0-18.0); Blood Gas IEPAP 15/5; MODE MASK - BIPAP
[2017-04-19 09:31] LABS: AADO2 Arterial 143.9 mmHg (7.0-24.0); Arterial Base Excess -6.2 mmol/L (-3.0-3); Arterial COHb 0.3 % (0.0-3.0); Arterial Fraction of Oxyhgb 96.7 % (93.0-99.0); Arterial HCO3 19.3 mmol/L (22.0-26.0); Arterial MetHb 0.3 % (0.0-1.5); Arterial Total Hemglobin 12.2 g/dl (12.0-18.0); Blood Gas IEPAP 15/5; Blood Gas PS 10; MODE MASK - BIPAP
[2017-04-19] MEDS: MEROPENEM 1 GM/100 ML (PMX) 100 ML IVPB SCH ×2 (10:14→21:14)
--- NOTE | 2017-04-19 10:29 | CONS ---
Date/Time of Note Date/Time of Note DATE: 04/19/17 TIME: 10:23 Assessment/Plan Assessment/Plan Chief Complaint/Hosp Course 1. acute on chronic hypoxemic respiratory failure 2. NSTEMI: due to demand ischemia. 3. CHF: due to diastolic heart failure 4. moderate 5. Arrhythmia and P afib, frequent PVC. 6. ANEMIA 7. pneumonia, severe leukocytosis now. 8. s/p sepsis and shock Problems: Additional Assessment/Plan 1) continue amiodarone 2) brief run of afib noted Consultation Date/Type/Reason Admit Date/Time Apr 11, 2017 at 11:28 Initial Consult Date 04/14/17 Type of Consultation: cv Referring Provider: NINA MACIEL DO 24 HR Interval Summary Free Text/Dictation on FM, mild respitory distress Subjective hx not possible: pt critical Detailed Summary Respiratory: shortness of breath Cardiovascular: no complaints Musculoskeletal: no complaints Skin: no complaints Neurologic: no complaints Exam/Review of Systems Vital Signs Vitals Vital Signs Date Time Temp Pulse Resp B/P Pulse Ox O2 Delivery O2 Flow Rate FiO2 04/19/17 08:30 115 22 150/100 99 BIPAP 04/19/17 08:00 98.4 04/19/17 05:56 40 04/18/17 22:00 3.0 Intake and Output 04/18/17 04/18/17 04/19/17 15:00 23:00 07:00 Intake Total 600 ml 300 ml 110 ml Output Total 1020 ml 390 ml 220 ml Balance -420 ml -90 ml -110 ml Exam Constitutional: frail, non-verbal Head: atraumatic, normocephalic Neck: supple Respiratory: clear to auscultation Cardiovascular: regular rate and rhythm Musculoskeletal: nl extremities to inspection Extremities: normal pulses Results Result Diagram: 04/19/17 0450 04/19/17 0450 Results 24 hrs Laboratory Tests Test 04/18/17 11:30 04/18/17 12:03 04/18/17 16:54 04/19/17 00:05 Blood Gas Specimen Source Blood arterial Arterial Blood Date Drawn 04/18/2017 11:45:07 AM Arterial Blood pH (Temp corrected) 7.405 Arterial Blood pCO2 (Temp correct) 28.8 L Arterial Blood pO2 (Temp corrected) 81.9 Arterial Blood HCO3 17.6 L Arterial Blood Base Excess -5.8 L Arterial Blood Oxygen Saturation 96.1 Jonn Test ACCEPTAB Arterial Blood Gas Puncture Site Right Radial Arterial Blood Carboxyhemoglobin 0.3 Arterial Blood Methemoglobin 0.2 Blood Gas A-a O2 Differential 98.2 H Oxyhemoglobin Percent 95.6 Total Hemoglobin 12.1 Blood Gas Temperature 37.0 Blood Gas Actual Respiration Rate 19 Blood Gas Modality VENT - CPAP FiO2 30.0 Blood Gas High PEEP Setting 5.0 Blood Gas Notified Whom TM Blood Gas Notified Time 04/18/2017 11:55:44 AM Bedside Glucose 112 95 147 Test 04/19/17 04:45 04/19/17 04:50 04/19/17 05:52 04/19/17 08:00 Blood Gas Specimen Source Blood arterial Blood arterial Arterial Blood Date Drawn 04/19/2017 4:40:26 AM 04/19/2017 8:35:59 AM Arterial Blood pH (Temp corrected) 7.325 L 7.372 Arterial Blood pCO2 (Temp correct) 37.8 31.3 L Arterial Blood pO2 (Temp corrected) 97.8 84.0 Arterial Blood HCO3 19.3 L 17.8 L Arterial Blood Base Excess -6.2 L -6.5 L Arterial Blood Oxygen Saturation 97.3 95.7 Jonn Test N/A ACCEPTAB Arterial Blood Gas Puncture Site Right Brachial Right Radial Arterial Blood Carboxyhemoglobin 0.3 0.3 Arterial Blood Methemoglobin 0.3 0.4 Blood Gas A-a O2 Differential 143.9 H 165.2 H Oxyhemoglobin Percent 96.7 95.0 Total Hemoglobin 12.2 11.6 L Blood Gas Temperature 37.0 37.0 Blood Gas Respiration Rate 18.0 18.0 Blood Gas Actual Respiration Rate 27 22 Blood Gas Modality MASK - BIPAP MASK - BIPAP FiO2 40.0 40.0 Blood Gas Pressure Support 10 Blood Gas IPAP/EPAP Ratio 24/02 24/02 Blood Gas Notified Whom UP CW Blood Gas Notified Time 04/19/2017 4:53:50 AM 04/19/2017 8:47:23 AM White Blood Count 47.5 H Red Blood Count 3.13 L Hemoglobin 10.3 L Hematocrit 33.1 L Mean Corpuscular Volume 105.8 H Mean Corpuscular Hemoglobin 32.9 Mean Corpuscular Hemoglobin Concent 31.1 L Red Cell Distribution Width 14.7 H Platelet Count 344 # Mean Platelet Volume 11.1 H Neutrophils % 85.7 H Lymphocytes % 2.5 L Monocytes % 5.5 Eosinophils % 0.0 Basophils % 0.5 Nucleated Red Blood Cells % 0.1 H Neutrophils # 40.7 H Lymphocytes # 1.2 Monocytes # 2.6 H Eosinophils # 0.0 Basophils # 0.3 H Nucleated Red Blood Cells # 0.1 H Sodium Level 143 Potassium Level 3.8 Chloride Level 108 Carbon Dioxide Level 19 L Anion Gap 20 #H Blood Urea Nitrogen 54 H Creatinine 1.27 H Glucose Level 129 Calcium Level 9.3 Phosphorus Level 5.3 #H Magnesium Level 2.2 Total Bilirubin 0.0 L Direct Bilirubin 0.00 Indirect Bilirubin 0.0 Aspartate Amino Transf (AST/SGOT) 32 Alanine Aminotransferase (ALT/SGPT) 97 H Alkaline Phosphatase 153 H Total Protein 6.0 #L Albumin 3.1 L Globulin 2.90 Albumin/Globulin Ratio 1.06 Digoxin Level 0.5 L Bedside Glucose 121 Medications Medications Current Medications Norepinephrine/ Dextrose (Levophed/D5W) 500 ml @ 0 mls/hr TITRATE IV Last administered on 04/14/17 10:24; Admin Dose 18.75 MLS/HR; Start 04/11/17 at 12:30 Aspirin (Aspirin) 325 mg DAILY NGT Last administered on 04/19/17 09:21; Admin Dose 325 MG; Start 04/12/17 at 09:00 Metoprolol Tartrate (Lopressor) 25 mg BID NGT Last administered on 04/19/17 09: 22; Admin Dose 25 MG; Start 04/11/17 at 21:00 Metoprolol Tartrate (Lopressor) 5 mg Q4H PRN IV HR>110 Hold SBP<110 Last administered on 04/18/17 17:32; Admin Dose 5 MG; Start 04/11/17 at 13:30 Lansoprazole 30 mg 30 mg DAILY GTB Last administered on 04/19/17 09:21; Admin Dose 30 MG; Start 04/12/17 at 09:00 Phenylephrine HCl/ Dextrose (Chuy-Syneph/D5W) 500 ml @ 0 mls/hr TITRATE IV Last administered on 04/12/17 02:52; Admin Dose 75 MLS/HR; Start 04/11/17 at 16:00 Miscellaneous Information 1 ea NOTE XX ; Start 04/11/17 at 16:30 Glucose (Glutose) 15 gm Q15M PRN PO DECREASED GLUCOSE; Start 04/11/17 at 16:30 Glucose (Glutose) 22.5 gm Q15M PRN PO DECREASED GLUCOSE; Start 04/11/17 at 16: 30 Dextrose (D50w Syringe) 25 ml Q15M PRN IV DECREASED GLUCOSE Last administered on 04/12/17 23:56; Admin Dose 25 ML; Start 04/11/17 at 16:30 Dextrose (D50w Syringe) 50 ml Q15M PRN IV DECREASED GLUCOSE; Start 04/11/17 at 16:30 Glucagon (Glucagen) 1 mg Q15M PRN IM DECREASED GLUCOSE; Start 04/11/17 at 16:30 Glucose 15 gm 15 gm Q15M PRN BUCCAL DECREASED GLUCOSE; Start 04/11/17 at 16:30 Midazolam HCl 50 ml @ 1 mls/hr TITRATE IV Last administered on 04/13/17 04:30; Admin Dose 2 MLS/HR; Start 04/11/17 at 23:30 Fentanyl (Sublimaze) 100 ml @ 0.5 mls/hr TITRATE IV Last administered on 02:48; Admin Dose 0.5 MLS/HR; Start 04/12/17 at 09:30 Vancomycin HCl (Vancomycin Oral Syringe) 125 mg Q6 PO Last administered on 05:53; Admin Dose 125 MG; Start 04/12/17 at 12:00 Metoclopramide HCl (Reglan) 10 mg Q6 IV Last administered on 04/19/17 05:54; Admin Dose 10 MG; Start 04/12/17 at 18:00 Insulin Aspart (Novolog Insulin Pen) NOVOLOG *MILD* ALGORI... Q6H SC Last administered on 04/19/17 00:12; Admin Dose 1 UNIT; Start 04/15/17 at 00:00 Furosemide (Lasix) 20 mg DAILY IV Last administered on 04/19/17 09:22; Admin Dose 20 MG; Start 04/16/17 at 09:00 Metronidazole (Flagyl) 500 mg Q8 NGT Last administered on 04/19/17 05:53; Admin Dose 500 MG; Start 04/15/17 at 14:00 IV Flush 10 ml 10 ml PRN PRN IV FLUSH LINE; Start 04/15/17 at 13:00 Ciprofloxacin/ Dextrose (Cipro Ivpb) 200 ml @ 200 mls/hr Q12 IVPB Last administered on 04/19/17 09:22; Admin Dose 200 MLS/HR; Start 04/16/17 at 21:00 Hydrocortisone 25 mg 25 mg TID IV Last administered on 04/19/17 09:22; Admin Dose 25 MG; Start 04/16/17 at 13:00 Meropenem 100 ml @ 200 mls/hr Q12 IVPB Last administered on 04/19/17 10:14; Admin Dose 200 MLS/HR; Start 04/16/17 at 21:00 Vancomycin HCl 750 mg/Sodium Chloride 150 ml @ 75 mls/hr Q36H IVPB Last administered on 04/18/17 12:06; Admin Dose 75 MLS/HR; Start 04/17/17 at 01:00 Caspofungin/ Sodium Chloride (Cancidas/NS) 250 ml @ 250 mls/hr Q24H IVPB Last administered on 04/19/17 09:30; Admin Dose 250 MLS/HR; Start 04/17/17 at 10:00 Amiodarone HCl (Cordarone) 200 mg BID GTB Last administered on 04/19/17 09:22; Admin Dose 200 MG; Start 04/16/17 at 13:00 Diltiazem HCl (Cardizem Iv) 5 mg Q1H PRN IV AFIB GREATER THAN 110 Last administered on 04/17/17 16:41; Admin Dose 5 MG; Start 04/16/17 at 13:00 Enoxaparin Sodium (Lovenox) 40 mg HS SC Last administered on 04/17/17 20:38; Admin Dose 40 MG; Start 04/17/17 at 21:00; Status Future Hold Heparin Sodium (Porcine) (Heparin (5000 Units/0.5 ml)) 5,000 unit BID SC Last administered on 04/19/17 09:26; Admin Dose 5,000 UNIT; Start 04/18/17 at 16:22 Miscellaneous Information (*Order Clarification Bulletin) MEDICATION REQUIRES CLARIFICATION: Q8H XX Last administered on 04/18/17 16:44; Admin Dose 1 EA; Start 04/18/17 at 16:30 Acetaminophen/ Hydrocodone Bitart ([place] (5/325)) 2 tab Q4H PRN NGT MODERATE PAIN LEVEL 4-6 Last administered on 04/18/17 17:14; Admin Dose 2 TAB; Start 04/18 at 17:30 Citalopram Hydrobromide (Celexa) 20 mg DAILY NGT Last administered on 04/19/17 09:21; Admin Dose 20 MG; Start 04/19/17 at 09:00 Hydralazine HCl (Apresoline) 20 mg Q6H PRN IV sbp ABOVE 160 Last administered on 04/19/17 03:09; Admin Dose 20 MG; Start 04/18/17 at 18:30 YVETTE GONZALEZ MD Apr 19, 2017 10:29
[2017-04-19] MEDS: METOPROLOL 5 MG INJ IV PRN (10:40)
[2017-04-19] MEDS: HYDROCODONE/APAP (5/325) TAB NGT PRN (10:40)
--- NOTE | 2017-04-19 11:22 | RADRPT ---
PROCEDURE: XR Chest. CLINICAL INDICATION: CHF TECHNIQUE: An AP view of the chest was obtained. COMPARISON: Chest x-ray dated 04/18/2017 FINDINGS: There is a right upper extremity PICC line with tip near the cavoatrial junction. There is prominence of the interstitial and central pulmonary vascular markings with small bilatera l pleural effusions. No focal airspace opacification or pneumothorax is seen. The cardiomediastin al silhouette is mildly enlarged . Calcifications are seen within the aortic arch. The osseous str uctures demonstrate senescent changes. Surgical clips are seen within the right neck. IMPRESSION: 1. Findings suggestive of pulmonary vascular congestion with small bilateral pleural effusions. No significant interval change. 2. Mild cardiomegaly and aortic atherosclerosis. 3. Tubes and lines, as described above. RPTAT: HH .Arline Grier MD, MD Date Time Electronically viewed and signed by .Arline Grier MD, on 04/19/2017 11:22 .G/
--- NOTE | 2017-04-19 15:41 | CONS ---
Date/Time of Note Date/Time of Note DATE: 04/19/17 TIME: 15:38 Assessment/Plan Assessment/Plan Chief Complaint/Hosp Course Patient was extubated, currently on BiPAP, she is lethargic but arousable and in no distress Temperature 98.5 pulse 95 respirations 26 blood pressure 145/76 saturation 96 on BiPAP WBC 47.5 H&H 10 point and 33.1 platelets 244 neutrophils 85.7 BUN 54 creatinine 1.27 Indwelling bag Latif PICC line placed on April 15, 2017 Chest x-ray this morning revealed pulmonary vascular congestion with small bilateral pleural effusion Physical examination: Well-developed fragile elderly woman who is in no distress. Head atraumatic, normocephalic sclera nonicteric. Neck is supple. Chest rise symmetrical breath sounds diminished bases. Abdomen soft, bowel tones present. Extremities with trace edema. Assessment: 1. Severe sepsis, status post shock 2. Acute on chronic respiratory failure likely secondary to aspiration event 3. Healthcare associated pneumonia 4. Leukocytosis, patient had been on Solu-Cortef since admission 5. Diarrhea with a history of C. difficile colitis, on empiric Flagyl 6. 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 Gallstones ==> no evidence for cholecystitis per repeat abdominal ultrasound 10. Resolved encephalopathy Plan: Stable on BiPAP, continue antibiotics, follow recommendations of consultants Discussed with Discussed with RN Problems: Consultation Date/Type/Reason Admit Date/Time Apr 11, 2017 at 11:28 Initial Consult Date 04/12/17 Type of Consultation: ID Referring Provider: NINA MACIEL DO Exam/Review of Systems Vital Signs Vitals Vital Signs Date Time Temp Pulse Resp B/P Pulse Ox O2 Delivery O2 Flow Rate FiO2 04/19/17 14:30 108 31 191/92 91 BIPAP 04/19/17 12:00 98.4 04/19/17 05:56 40 04/18/17 22:00 3.0 Intake and Output 04/18/17 04/18/17 04/19/17 15:00 23:00 07:00 Intake Total 600 ml 300 ml 150 ml Output Total 1020 ml 390 ml 260 ml Balance -420 ml -90 ml -110 ml Results Result Diagram: 04/19/17 0450 04/19/17 0450 Results 24 hrs Laboratory Tests Test 04/18/17 16:54 04/19/17 00:05 04/19/17 04:45 04/19/17 04:50 Bedside Glucose 95 147 Blood Gas Specimen Source Blood arterial Arterial Blood Date Drawn 04/19/2017 4:40:26 AM Arterial Blood pH (Temp corrected) 7.325 L Arterial Blood pCO2 (Temp correct) 37.8 Arterial Blood pO2 (Temp corrected) 97.8 Arterial Blood HCO3 19.3 L Arterial Blood Base Excess -6.2 L Arterial Blood Oxygen Saturation 97.3 Jonn Test N/A Arterial Blood Gas Puncture Site Right Brachial Arterial Blood Carboxyhemoglobin 0.3 Arterial Blood Methemoglobin 0.3 Blood Gas A-a O2 Differential 143.9 H Oxyhemoglobin Percent 96.7 Total Hemoglobin 12.2 Blood Gas Temperature 37.0 Blood Gas Respiration Rate 18.0 Blood Gas Actual Respiration Rate 27 Blood Gas Modality MASK - BIPAP FiO2 40.0 Blood Gas Pressure Support 10 Blood Gas IPAP/EPAP Ratio 15/5 Blood Gas Notified Whom UP Blood Gas Notified Time 04/19/2017 4:53:50 AM White Blood Count 47.5 H Red Blood Count 3.13 L Hemoglobin 10.3 L Hematocrit 33.1 L Mean Corpuscular Volume 105.8 H Mean Corpuscular Hemoglobin 32.9 Mean Corpuscular Hemoglobin Concent 31.1 L Red Cell Distribution Width 14.7 H Platelet Count 344 # Mean Platelet Volume 11.1 H Neutrophils % 85.7 H Lymphocytes % 2.5 L Monocytes % 5.5 Eosinophils % 0.0 Basophils % 0.5 Nucleated Red Blood Cells % 0.1 H Neutrophils # 40.7 H Lymphocytes # 1.2 Monocytes # 2.6 H Eosinophils # 0.0 Basophils # 0.3 H Nucleated Red Blood Cells # 0.1 H Sodium Level 143 Potassium Level 3.8 Chloride Level 108 Carbon Dioxide Level 19 L Anion Gap 20 #H Blood Urea Nitrogen 54 H Creatinine 1.27 H Glucose Level 129 Calcium Level 9.3 Phosphorus Level 5.3 #H Magnesium Level 2.2 Total Bilirubin 0.0 L Direct Bilirubin 0.00 Indirect Bilirubin 0.0 Aspartate Amino Transf (AST/SGOT) 32 Alanine Aminotransferase (ALT/SGPT) 97 H Alkaline Phosphatase 153 H Total Protein 6.0 #L Albumin 3.1 L Globulin 2.90 Albumin/Globulin Ratio 1.06 Digoxin Level 0.5 L Test 04/19/17 05:52 04/19/17 08:00 04/19/17 12:19 Bedside Glucose 121 142 Blood Gas Specimen Source Blood arterial Arterial Blood Date Drawn 04/19/2017 8:35:59 AM Arterial Blood pH (Temp corrected) 7.372 Arterial Blood pCO2 (Temp correct) 31.3 L Arterial Blood pO2 (Temp corrected) 84.0 Arterial Blood HCO3 17.8 L Arterial Blood Base Excess -6.5 L Arterial Blood Oxygen Saturation 95.7 Jonn Test ACCEPTAB Arterial Blood Gas Puncture Site Right Radial Arterial Blood Carboxyhemoglobin 0.3 Arterial Blood Methemoglobin 0.4 Blood Gas A-a O2 Differential 165.2 H Oxyhemoglobin Percent 95.0 Total Hemoglobin 11.6 L Blood Gas Temperature 37.0 Blood Gas Respiration Rate 18.0 Blood Gas Actual Respiration Rate 22 Blood Gas Modality MASK - BIPAP FiO2 40.0 Blood Gas IPAP/EPAP Ratio 15/5 Blood Gas Notified Whom CW Blood Gas Notified Time 04/19/2017 8:47:23 AM Medications Medications Current Medications Norepinephrine/ Dextrose (Levophed/D5W) 500 ml @ 0 mls/hr TITRATE IV Last administered on 04/14/17 10:24; Admin Dose 18.75 MLS/HR; Start 04/11/17 at 12:30 Aspirin (Aspirin) 325 mg DAILY NGT Last administered on 04/19/17 09:21; Admin Dose 325 MG; Start 04/12/17 at 09:00 Metoprolol Tartrate (Lopressor) 25 mg BID NGT Last administered on 04/19/17 09: 22; Admin Dose 25 MG; Start 04/11/17 at 21:00 Metoprolol Tartrate (Lopressor) 5 mg Q4H PRN IV HR>110 Hold SBP<110 Last administered on 04/19/17 10:40; Admin Dose 5 MG; Start 04/11/17 at 13:30 Lansoprazole 30 mg 30 mg DAILY GTB Last administered on 04/19/17 09:21; Admin Dose 30 MG; Start 04/12/17 at 09:00 Phenylephrine HCl/ Dextrose (Chuy-Syneph/D5W) 500 ml @ 0 mls/hr TITRATE IV Last administered on 04/12/17 02:52; Admin Dose 75 MLS/HR; Start 04/11/17 at 16:00 Miscellaneous Information 1 ea NOTE XX ; Start 04/11/17 at 16:30 Glucose (Glutose) 15 gm Q15M PRN PO DECREASED GLUCOSE; Start 04/11/17 at 16:30 Glucose (Glutose) 22.5 gm Q15M PRN PO DECREASED GLUCOSE; Start 04/11/17 at 16: 30 Dextrose (D50w Syringe) 25 ml Q15M PRN IV DECREASED GLUCOSE Last administered on 04/12/17 23:56; Admin Dose 25 ML; Start 04/11/17 at 16:30 Dextrose (D50w Syringe) 50 ml Q15M PRN IV DECREASED GLUCOSE; Start 04/11/17 at 16:30 Glucagon (Glucagen) 1 mg Q15M PRN IM DECREASED GLUCOSE; Start 04/11/17 at 16:30 Glucose 15 gm 15 gm Q15M PRN BUCCAL DECREASED GLUCOSE; Start 04/11/17 at 16:30 Midazolam HCl 50 ml @ 1 mls/hr TITRATE IV Last administered on 04/13/17 04:30; Admin Dose 2 MLS/HR; Start 04/11/17 at 23:30 Fentanyl (Sublimaze) 100 ml @ 0.5 mls/hr TITRATE IV Last administered on 02:48; Admin Dose 0.5 MLS/HR; Start 04/12/17 at 09:30 Vancomycin HCl (Vancomycin Oral Syringe) 125 mg Q6 PO Last administered on 12:28; Admin Dose 125 MG; Start 04/12/17 at 12:00 Metoclopramide HCl (Reglan) 10 mg Q6 IV Last administered on 04/19/17 12:28; Admin Dose 10 MG; Start 04/12/17 at 18:00 Insulin Aspart (Novolog Insulin Pen) NOVOLOG *MILD* ALGORI... Q6H SC Last administered on 04/19/17 12:32; Admin Dose 1 UNIT; Start 04/15/17 at 00:00 Furosemide (Lasix) 20 mg DAILY IV Last administered on 04/19/17 09:22; Admin Dose 20 MG; Start 04/16/17 at 09:00 Metronidazole (Flagyl) 500 mg Q8 NGT Last administered on 04/19/17 13:39; Admin Dose 500 MG; Start 04/15/17 at 14:00 IV Flush 10 ml 10 ml PRN PRN IV FLUSH LINE; Start 04/15/17 at 13:00 Ciprofloxacin/ Dextrose (Cipro Ivpb) 200 ml @ 200 mls/hr Q12 IVPB Last administered on 04/19/17 09:22; Admin Dose 200 MLS/HR; Start 04/16/17 at 21:00 Hydrocortisone 25 mg 25 mg TID IV Last administered on 04/19/17 12:29; Admin Dose 25 MG; Start 04/16/17 at 13:00 Meropenem 100 ml @ 200 mls/hr Q12 IVPB Last administered on 04/19/17 10:14; Admin Dose 200 MLS/HR; Start 04/16/17 at 21:00 Vancomycin HCl 750 mg/Sodium Chloride 150 ml @ 75 mls/hr Q36H IVPB Last administered on 04/18/17 12:06; Admin Dose 75 MLS/HR; Start 04/17/17 at 01:00 Caspofungin/ Sodium Chloride (Cancidas/NS) 250 ml @ 250 mls/hr Q24H IVPB Last administered on 04/19/17 09:30; Admin Dose 250 MLS/HR; Start 04/17/17 at 10:00 Amiodarone HCl (Cordarone) 200 mg BID GTB Last administered on 04/19/17 09:22; Admin Dose 200 MG; Start 04/16/17 at 13:00 Diltiazem HCl (Cardizem Iv) 5 mg Q1H PRN IV AFIB GREATER THAN 110 Last administered on 04/17/17 16:41; Admin Dose 5 MG; Start 04/16/17 at 13:00 Enoxaparin Sodium (Lovenox) 40 mg HS SC Last administered on 04/17/17 20:38; Admin Dose 40 MG; Start 04/17/17 at 21:00; Status Future Hold Heparin Sodium (Porcine) (Heparin (5000 Units/0.5 ml)) 5,000 unit BID SC Last administered on 04/19/17 09:26; Admin Dose 5,000 UNIT; Start 04/18/17 at 16:22 Acetaminophen/ Hydrocodone Bitart ([place] (5/325)) 2 tab Q4H PRN NGT MODERATE PAIN LEVEL 4-6 Last administered on 04/19/17 10:40; Admin Dose 1 TAB; Start 04/18 at 17:30 Citalopram Hydrobromide (Celexa) 20 mg DAILY NGT Last administered on 04/19/17 09:21; Admin Dose 20 MG; Start 04/19/17 at 09:00 Hydralazine HCl (Apresoline) 20 mg Q6H PRN IV sbp ABOVE 160 Last administered on 04/19/17 15:08; Admin Dose 20 MG; Start 04/18/17 at 18:30 Acetaminophen/ Hydrocodone Bitart ([place] (5/325)) 1 tab Q6H PRN GTB PAIN; Start 04/19/17 at 11:00 LORETO MCKEON NP Apr 19, 2017 15:41
[2017-04-19] MEDS: HYDROCODONE/APAP (5/325) TAB GTB PRN (17:53)
--- NOTE | 2017-04-19 23:16 | PN ---
Date/Time of Note Date/Time of Note DATE: 04/19/17 TIME: 23:07 Assessment/Plan Lines/Catheters IV Catheter Type (from [facility]): PICC Line Latif in Place (from [facility]): Yes Assessment/Plan Chief Complaint/Hosp Course 1. Cholelithiasis ? cholecystitis: Ct abd: sludge and small stones in the gallbladder. No gallbladder wall thickening is noted with some pericholecystic fluid is present. Patient off pressors; OGT no output; HIDA positive; IR drain placement cancelled by radiologist since US without evidence of infection. Therefore, Dr. Guadalupe believes the HIDA is false positive. -No surgical intervention required at this time -will await medical optimization 2. Pneumonia: Recurrent; no fevers; intubated; less secretions; CXR 04/16 Changes of pulmonary vascular congestion and increased interstitial markings. sputum cx : PSEUDOMONAS AERUGINOSA, K PNEUMO ESBL, NASRIN GLABRATA; -pulmonary toilet -abx per ID -diuresis 3. Vent dependent respiratory failure: 2/2 aspiration PNA+ CHF; Extubated on bipap. -as above 4. Septic shock: improved -on abx -supportive 5. Uncontrolled Afib: s/p amiodarone drip, on oral amiodarone Now SR -medical optimization -lovenox 6. Elevated troponin:NSTEMI; septic shock/demand ischemia -trend 7. Leukocytosis with lactic acidosis: 2/2 pneumonia vs. steroids vs. other ( urine, blood cultures negative); wbc unchanged; lactic acid stable -abx -judicious fluid management 8. KEYONNA: likely 2/2 septic shock -judicious fluid management -avoid nephrotoxic agents 9. CHF: -judicious fluid management -medical optimization 10. Adrenal Insufficiency -solucortef 11. Hypomagnesemia: normalized -electrolyte optimization -monitor for cardiac abnormalities 12. Hypothyroidism -cont. synthroid 13. Macrocytic anemia: chronic vs. dilutional vs. acute bleed vs. b12/folate deficiency; h/h slightly lower today -monitor -Transfuse as needed 14. Transaminitis: likely 2/2 septic shock vs. cholecystitis; improved -trend, monitor 15. Diarrhea: 2/2 abx vs. enteritis: resolved -start probiotics -stool cultures 16. Thrombocytosis: 2/2 inflammatory vs. drug induced vs. other; normalized -monitor -bleeding precautions -supportive 17. Encephalopathy: 2/2 toxic metabolic vs. anoxic injury; CT: No acute intracranial hemorrhage or mass effect. Mild chronic microvascular disease and intracranial atherosclerosis; more alert and communicative; EEG shows no seizure activity -supportive 18. Bilateral upper extremity edema: likely 2/2 decreased movement vs. thrombosis; initial doppler negative, repeat doppler left arm (+) Thrombus -elevate extremities 19. Hypoalbuminemia: 2/2 malnutrition +/- inflammation; tolerating tube feeds -nutrition optimization -as above 20. Left basilic vein thrombus: -?heparin therapeutic dose/drip Thank you, Problems: Subjective 24 Hr Interval Summary Extubated on bipap. No fevers, now in SR. Comfortable. No c/o metzger, dizziness/ lightheadedness, cough, sob, palpitations, cp, abdominal pain or fullness, n/v/ d. Tolerated tube feedings. Bowel function. Exam/Review of Systems Vital Signs Vitals Vital Signs Date Time Temp Pulse Resp B/P Pulse Ox O2 Delivery O2 Flow Rate FiO2 04/19/17 22:00 90 20 142/83 100 BIPAP 04/19/17 21:40 100 04/19/17 16:00 97.9 04/18/17 22:00 3.0 Intake and Output 04/18/17 04/18/17 04/19/17 15:00 23:00 07:00 Intake Total 600 ml 300 ml 150 ml Output Total 1020 ml 390 ml 260 ml Balance -420 ml -90 ml -110 ml Exam Free Text/Dictation Constitutional: alert and responsive, well developed Head: atraumatic, normocephalic Eyes: PERRL, nl lids, nl sclera ENMT: No mucosa pink and moist (pink and dry) Neck: non-tender, supple Respiratory: Normal effort, no wheezing Cardiovascular: nl pulses, regular rate and rhythm, NSR Gastrointestinal: non-tender, soft, GT tubes site no erythema, no drainage, mildly distended, No rebound tenderness or guarding Genitourinary - Female: nl external genitalia Musculoskeletal: nl extremities to inspection Extremities: normal pulses, min edema, mod left arm Neurological: more responsive Skin: nl turgor, No rash or lesions Lymph: nl lymph nodes Results Result Diagram: 04/19/17 0450 04/19/17 0450 PATRICK QUINTERO MD Apr 19, 2017 23:16
[2017-04-20] VITALS (48 sets, daily range): BP systolic 112–168; BP diastolic 62–108; PULSE 78–116; RESP 18–33
[2017-04-20] MEDS: METOCLOPRAMIDE 10 MG INJ IV SCH ×5 (00:25→23:54)
[2017-04-20] MEDS: VANCOMYCIN HCL 250 MG/5ML POSYG PO SCH ×3 (00:25→12:09)
[2017-04-20] MEDS: INSULIN ASPART [NOVOLOG] 3 ML PEN SC SCH ×5 (00:34→23:54)
[2017-04-20] MEDS: VANCOMYCIN 750 MG in SOD CHLORIDE 0.9% 150 ML IVPB SCH (00:34)
[2017-04-20] MEDS: HYDROCODONE/APAP (5/325) TAB NGT PRN (01:47)
[2017-04-20] MEDS ORDERED: LORAZEPAM 2 MG INJ IV PRN (02:25)
[2017-04-20 05:30] LABS: ADD SCAN DIFF NO
[2017-04-20 05:41] LABS: ABNORMAL IP MESSAGE 1; HEMOGLOBIN 9.9 g/dl (12.0-16.0); MEAN CORPUSCULAR HEMOGLOBIN 33.8 pg (29.0-33.0); MEAN CORPUSCULAR HGB CONC 30.9 g/dl (32.0-37.0); MEAN CORPUSCULAR VOLUME 109.2 fl (82.0-101.0); MEAN PLATELET VOLUME 11.2 fl (7.4-10.4); PLATELET COUNT 379 10^3/UL (140-415); RED BLOOD COUNT 2.93 10^6/ul (4.20-5.40); RED CELL DISTRIBUTION WIDTH 14.9 % (11.5-14.5); WHITE BLOOD COUNT 60.4 10^3/ul (4.8-10.8)
[2017-04-20 06:09] LABS: ALBUMIN 3.2 g/dl (3.3-4.9); ALBUMIN/GLOBULIN RATIO 1.06; CALCIUM 9.3 mg/dl (8.4-10.2); CREATININE 1.24 mg/dl (0.44-1.00); MAGNESIUM 2.2 mg/dl (1.7-2.5); PHOSPHORUS 6.9 mg/dl (2.5-4.9); TOTAL PROTEIN 6.2 g/dl (6.1-8.1)
[2017-04-20] MEDS: metroNIDAZOLE 500 MG TAB NGT SCH ×3 (06:32→21:23)
[2017-04-20] MEDS: LEVOTHYROXINE 75 MCG TAB GTB SCH (06:32)
--- NOTE | 2017-04-20 07:09 | CONS ---
Date/Time of Note Date/Time of Note DATE: 04/20/17 TIME: 07:01 Consult Date/Type/Reason Admit Date/Time Apr 11, 2017 at 11:28 Initial Consult Date 04/14/17 Type of Consultation: im Ordering Provider: NINA GANDHI DO Subjective This is a 66-year-old female with a past medical history of tongue cancer status post section reconstruction 10 years ago.. The patient approximately 16 months ago had clinical decompensation respiratory failure underwent trach and PEG. The patient was transferred to [facility] where she underwent weaning off of that. The [facility] as had previous hospital stays for sepsis pneumonia and respiratory failure. Most recently in her last hospital stay follow the patient was successfully decannulated and removal with removal of PEG. She was subsequently transferred back to group home facility. She now presents yesterday to [facility] emergency room with hypoxemic respiratory failure. After an episode of acid emesis and concern of aspiration pneumonitis pneumonia. In the emergency room the patient was critically ill was intubated was in septic shock placed on pressure support IV pressors and IV antibiotics and transferred to the intensive care unit for further care. In the emergency room the patient had a CT of the abdomen pelvis which showed evidence of pericholecystic fluid possile cholecystitis. Patient also had noted infiltrates in her lungs bilaterally and noted to be in shock.Patient had normal renal function on admission her creatinine is increased. Interim events was extubated but went into respiratory distress requiring bipap. IR cancelled procedure poc reviewed with and dr. gandhi. Patient remains on BIPAP 15/, Fi02=40%, now currently on 100% due to multiple episodes of desaturation down to 83 to 85%. Had one episode of vomiting and deep suctioning 3x in the shift, but only partially effective. Kept HOB elevated 30 to 45 degrees at all times. GENERAL: on bipap VITAL SIGNS: see below. HEENT: Pupils equal, round, and reactive to light CARDIAC: S1, S2, 1/6 systolic ejection murmur CHEST: Diminished air entry bilaterally. ABDOMEN: Mildly distended. Bowel sounds present no guarding or rebound EXTREMITIES: No cyanosis, clubbing edema +1 NEUROLOGIC: Generalized weakness Objective Vital Signs Date Time Temp Pulse Resp B/P Pulse Ox O2 Delivery O2 Flow Rate FiO2 04/20/17 05:40 81 100 50 04/20/17 03:00 26 127/66 BIPAP 04/20/17 00:00 98.3 04/18/17 22:00 3.0 Intake and Output 04/19/17 04/19/17 04/20/17 15:00 23:00 07:00 Intake Total 630 ml 50 ml 130 ml Output Total 555 ml 470 ml 682 ml Balance 75 ml -420 ml -552 ml Results/Medications Result Diagram: 04/20/17 0430 04/20/17 0430 Results 24 hrs Laboratory Tests Test 04/19/17 08:00 04/19/17 12:19 04/19/17 17:43 04/20/17 00:26 Blood Gas Specimen Source Blood arterial Arterial Blood Date Drawn 04/19/2017 8:35:59 AM Arterial Blood pH (Temp corrected) 7.372 Arterial Blood pCO2 (Temp correct) 31.3 L Arterial Blood pO2 (Temp corrected) 84.0 Arterial Blood HCO3 17.8 L Arterial Blood Base Excess -6.5 L Arterial Blood Oxygen Saturation 95.7 Jonn Test ACCEPTAB Arterial Blood Gas Puncture Site Right Radial Arterial Blood Carboxyhemoglobin 0.3 Arterial Blood Methemoglobin 0.4 Blood Gas A-a O2 Differential 165.2 H Oxyhemoglobin Percent 95.0 Total Hemoglobin 11.6 L Blood Gas Temperature 37.0 Blood Gas Respiration Rate 18.0 Blood Gas Actual Respiration Rate 22 Blood Gas Modality MASK - BIPAP FiO2 40.0 Blood Gas IPAP/EPAP Ratio 15/5 Blood Gas Notified Whom CW Blood Gas Notified Time 04/19/2017 8:47:23 AM Bedside Glucose 142 153 149 Test 04/20/17 04:30 04/20/17 06:28 White Blood Count 60.4 #H Red Blood Count 2.93 L Hemoglobin 9.9 L Hematocrit 32.0 L Mean Corpuscular Volume 109.2 H Mean Corpuscular Hemoglobin 33.8 H Mean Corpuscular Hemoglobin Concent 30.9 L Red Cell Distribution Width 14.9 H Platelet Count 379 Mean Platelet Volume 11.2 H Basophils % Basophils # Sodium Level 147 H Potassium Level 4.0 Chloride Level 109 Carbon Dioxide Level 24 Anion Gap 18 H Blood Urea Nitrogen 56 H Creatinine 1.24 H Glucose Level 121 Lactic Acid Level 1.2 Calcium Level 9.3 Phosphorus Level 6.9 H Magnesium Level 2.2 Total Bilirubin 0.0 L Direct Bilirubin 0.00 Indirect Bilirubin 0.0 Aspartate Amino Transf (AST/SGOT) 30 Alanine Aminotransferase (ALT/SGPT) 76 H Alkaline Phosphatase 125 H Total Protein 6.2 Albumin 3.2 L Globulin 3.00 Albumin/Globulin Ratio 1.06 Bedside Glucose 122 Medications Current Medications Norepinephrine/ Dextrose (Levophed/D5W) 500 ml @ 0 mls/hr TITRATE IV Last administered on 04/14/17 10:24; Admin Dose 18.75 MLS/HR; Start 04/11/17 at 12:30 Aspirin (Aspirin) 325 mg DAILY NGT Last administered on 04/19/17 09:21; Admin Dose 325 MG; Start 04/12/17 at 09:00 Metoprolol Tartrate (Lopressor) 25 mg BID NGT Last administered on 04/19/17 21: 14; Admin Dose 25 MG; Start 04/11/17 at 21:00 Metoprolol Tartrate (Lopressor) 5 mg Q4H PRN IV HR>110 Hold SBP<110 Last administered on 04/19/17 10:40; Admin Dose 5 MG; Start 04/11/17 at 13:30 Lansoprazole 30 mg 30 mg DAILY GTB Last administered on 04/19/17 09:21; Admin Dose 30 MG; Start 04/12/17 at 09:00 Phenylephrine HCl/ Dextrose ([place]-Syneph/D5W) 500 ml @ 0 mls/hr TITRATE IV Last administered on 04/12/17 02:52; Admin Dose 75 MLS/HR; Start 04/11/17 at 16:00 Miscellaneous Information 1 ea NOTE XX ; Start 04/11/17 at 16:30 Glucose (Glutose) 15 gm Q15M PRN PO DECREASED GLUCOSE; Start 04/11/17 at 16:30 Glucose (Glutose) 22.5 gm Q15M PRN PO DECREASED GLUCOSE; Start 04/11/17 at 16: 30 Dextrose (D50w Syringe) 25 ml Q15M PRN IV DECREASED GLUCOSE Last administered on 04/12/17 23:56; Admin Dose 25 ML; Start 04/11/17 at 16:30 Dextrose (D50w Syringe) 50 ml Q15M PRN IV DECREASED GLUCOSE; Start 04/11/17 at 16:30 Glucagon (Glucagen) 1 mg Q15M PRN IM DECREASED GLUCOSE; Start 04/11/17 at 16:30 Glucose 15 gm 15 gm Q15M PRN BUCCAL DECREASED GLUCOSE; Start 04/11/17 at 16:30 Midazolam HCl 50 ml @ 1 mls/hr TITRATE IV Last administered on 04/13/17 04:30; Admin Dose 2 MLS/HR; Start 04/11/17 at 23:30 Fentanyl (Sublimaze) 100 ml @ 0.5 mls/hr TITRATE IV Last administered on 02:48; Admin Dose 0.5 MLS/HR; Start 04/12/17 at 09:30 Vancomycin HCl (Vancomycin Oral Syringe) 125 mg Q6 PO Last administered on 06:32; Admin Dose 125 MG; Start 04/12/17 at 12:00 Metoclopramide HCl (Reglan) 10 mg Q6 IV Last administered on 04/20/17 06:32; Admin Dose 10 MG; Start 04/12/17 at 18:00 Insulin Aspart (Novolog Insulin Pen) NOVOLOG *MILD* ALGORI... Q6H SC Last administered on 04/20/17 00:34; Admin Dose 1 UNIT; Start 04/15/17 at 00:00 Furosemide (Lasix) 20 mg DAILY IV Last administered on 04/19/17 09:22; Admin Dose 20 MG; Start 04/16/17 at 09:00 Metronidazole (Flagyl) 500 mg Q8 NGT Last administered on 04/20/17 06:32; Admin Dose 500 MG; Start 04/15/17 at 14:00 IV Flush 10 ml 10 ml PRN PRN IV FLUSH LINE; Start 04/15/17 at 13:00 Ciprofloxacin/ Dextrose (Cipro Ivpb) 200 ml @ 200 mls/hr Q12 IVPB Last administered on 04/19/17 21:14; Admin Dose 200 MLS/HR; Start 04/16/17 at 21:00 Hydrocortisone 25 mg 25 mg TID IV Last administered on 04/19/17 21:14; Admin Dose 25 MG; Start 04/16/17 at 13:00 Meropenem 100 ml @ 200 mls/hr Q12 IVPB Last administered on 04/19/17 21:14; Admin Dose 200 MLS/HR; Start 04/16/17 at 21:00 Vancomycin HCl 750 mg/Sodium Chloride 150 ml @ 75 mls/hr Q36H IVPB Last administered on 04/20/17 00:34; Admin Dose 75 MLS/HR; Start 04/17/17 at 01:00 Caspofungin/ Sodium Chloride (Cancidas/NS) 250 ml @ 250 mls/hr Q24H IVPB Last administered on 04/19/17 09:30; Admin Dose 250 MLS/HR; Start 04/17/17 at 10:00 Amiodarone HCl (Cordarone) 200 mg BID GTB Last administered on 04/19/17 21:13; Admin Dose 200 MG; Start 04/16/17 at 13:00 Diltiazem HCl (Cardizem Iv) 5 mg Q1H PRN IV AFIB GREATER THAN 110 Last administered on 04/17/17 16:41; Admin Dose 5 MG; Start 04/16/17 at 13:00 Enoxaparin Sodium (Lovenox) 40 mg HS SC Last administered on 04/17/17 20:38; Admin Dose 40 MG; Start 04/17/17 at 21:00; Status Future Hold Heparin Sodium (Porcine) (Heparin (5000 Units/0.5 ml)) 5,000 unit BID SC Last administered on 04/19/17 21:32; Admin Dose 5,000 UNIT; Start 04/18/17 at 16:22 Acetaminophen/ Hydrocodone Bitart ([place] (5/325)) 2 tab Q4H PRN NGT MODERATE PAIN LEVEL 4-6 Last administered on 04/20/17 01:47; Admin Dose 2 TAB; Start 04/18 at 17:30 Citalopram Hydrobromide (Celexa) 20 mg DAILY NGT Last administered on 04/19/17 09:21; Admin Dose 20 MG; Start 04/19/17 at 09:00 Hydralazine HCl (Apresoline) 20 mg Q6H PRN IV sbp ABOVE 160 Last administered on 04/19/17 15:08; Admin Dose 20 MG; Start 04/18/17 at 18:30 Acetaminophen/ Hydrocodone Bitart ([place] (5/325)) 1 tab Q6H PRN GTB PAIN Last administered on 04/19/17 17:53; Admin Dose 1 TAB; Start 04/19/17 at 11:00 Assessment/Plan Chief Complaint/Hosp Course 1. Nonoliguric keyonna. With previously normal baseline creatinine. Etiology is likely secondary to septic KEYONNA with possible ATN -Renal function has been stable, -Continue treatment plan. Supportive care renally dose meds avoid nephrotoxins -Follow-up renal panel - 2. Sepsis, status post shock. Etiology is likely secondary to aspiration pneumonia, -Patient currently off pressors. Remains on antibiotics - Patient's blood cultures have been reviewed. Continue current treatment plan Follow-up with infectious disease 3. sp Ventilator dependent respiratory failure. Etiology secondary to pneumonia, CHF -extubated successfully but had some tachypnea and required bipap and suctioning overnight. -Continue pulmonary toilet and follow-up with pulmonary -concern over need to reintubate. pulm 4. Volume overload. Etiology likely secondary to sepsis capillary leak. Possible diastolic heart failure. -Continue low-dose Lasix 5. Elevated troponin. Possible non-STEMI type II. We will continue to monitor follow-up with cardiology 6. History of adrenal insufficiency. -Patient currently on stress steroids, -Appreciate endocrinology evaluation 7. Acute encephalopathy etiologies toxic metabolic, possible anoxic injury. Mental status is improving, patient following commands CT scan showed no acute finding Appreciate Dr. Ellis evaluation -Continue to monitor closely 8. possible acute cholecystitis -Patient's HIDA scan was positive - cholecystostomy drain was not placed due to insufficient fluid. -Ct abd: sludge and small stones in the gallbladder. No gallbladder wall thickening is noted with some pericholecystic fluid is present. Patient off pressors; OGT no output; HIDA positive; IR drain placement attempted yesterday but unable due to not enough fluid to drain. Repeat US showed: Cholelithiasis without definite sonographic evidence of acute cholecystitis; tolerating tube feedings -No surgical intervention required at this time -may need eventual lap rupal as condition permits - will continue to monitor 9. Hypothyroidism continue Synthroid 10. Anemia. Monitor H&H 11. Mineral bone disorder will monitor calcium phosphorus levels 12. h/o tongue cancer with resection 13. History of diastolic heart failure/coronary disease -Continue medical management 14. Leukocytosis. -Etiology is likely secondary sepsis, steroids. -worsening. - Follow-up with infectious disease. - panculture and stool for cdiff 15. Hypomagnesemia. Continue to monitor and replete as needed 16. Left upper extremity swelling. Check a Doppler ultrasound to rule out DVT dysphasia status post PEG continue tube feeding 17. Dysphagia status post PEG continue tube feeding I spent greater than 40 minutes of critical care time with this pt Problems: HILARY RUBIO MD Apr 20, 2017 07:09
[2017-04-20 07:47] LABS: AADO2 Arterial 382.6 mmHg (7.0-24.0); Arterial Base Excess -8.5 mmol/L (-3.0-3); Arterial COHb 0.3 % (0.0-3.0); Arterial Fraction of Oxyhgb 98.4 % (93.0-99.0); Arterial HCO3 20.8 mmol/L (22.0-26.0); Arterial MetHb 0.5 % (0.0-1.5); Arterial Total Hemglobin 11.3 g/dl (12.0-18.0); Blood Gas IEPAP 15/5; Blood Gas PS 10; MODE MASK - BIPAP
[2017-04-20] MEDS: HYDROCORTISONE 100 MG INJ IV SCH ×3 (08:56→20:24)
[2017-04-20] MEDS: ASPIRIN 325 MG TAB NGT SCH (08:56)
[2017-04-20] MEDS: CITALOPRAM 20 MG TAB NGT SCH (08:56)
[2017-04-20] MEDS: FUROSEMIDE 20 MG INJ IV SCH (08:56)
[2017-04-20] MEDS: AMIODARONE 200 MG TAB GTB SCH ×2 (08:56→20:26)
[2017-04-20] MEDS: MEROPENEM 1 GM/100 ML (PMX) 100 ML IVPB SCH ×2 (08:57→20:26)
[2017-04-20] MEDS: CIPROFLOXACIN 400MG/D5W 200 ML IVPB SCH ×2 (08:57→21:12)
[2017-04-20] MEDS: LANSOPRAZOLE 30 MG CAP GTB SCH (08:57)
[2017-04-20] MEDS: METOPROLOL 25 MG TAB NGT SCH ×2 (08:57→20:25)
[2017-04-20] MEDS: HEPARIN 5,000 UNIT/0.5 ML VIAL SC SCH ×2 (09:09→20:43)
[2017-04-20 09:46] LABS: ANISOCYTOSIS 1+; LYMPHOCYTES # 1.8 10^3/ul (0.8-2.9); MYELOCYTES # 0.6; NEUTROPHIL # 48.9 10^3/ul (1.6-7.5)
--- NOTE | 2017-04-20 10:39 | CONS ---
Date/Time of Note Date/Time of Note DATE: 04/20/17 TIME: 10:37 Assessment/Plan Assessment/Plan Problems: (1) Steroid dependence Status: Chronic Comment: Patient remains on steroid therapy. Please note that from an endocrine standpoint her steroid axis is stable. However unfortunately her pulmonary status may be deteriorating at this time. Consultation Date/Type/Reason Admit Date/Time Apr 11, 2017 at 11:28 Initial Consult Date 04/14/17 Type of Consultation: Endocrinology Reason for Consultation Iatrogenic adrenal insufficiency; chronic respiratory failure Referring Provider: NINA MACIEL DO 24 HR Interval Summary Subjective hx not possible: pt non-verbal Exam/Review of Systems Vital Signs Vitals Vital Signs Date Time Temp Pulse Resp B/P Pulse Ox O2 Delivery O2 Flow Rate FiO2 04/20/17 09:30 91 20 151/77 99 BIPAP 04/20/17 08:00 97.4 04/20/17 05:40 50 04/18/17 22:00 3.0 Intake and Output 04/19/17 04/19/17 04/20/17 15:00 23:00 07:00 Intake Total 630 ml 50 ml 350 ml Output Total 555 ml 470 ml 782 ml Balance 75 ml -420 ml -432 ml Exam Patient lying in bed on BiPAP. She does wave at me and despite being hard of hearing if a project my voice loud enough she does follow simple commands including blinking her eyes twice or wiggling her eyebrows Constitutional: alert Neck: non-tender, supple Respiratory: diminished breath sounds Cardiovascular: nl pulses, regular rate and rhythm Results Result Diagram: 04/20/17 0430 04/20/17 0430 Results 24 hrs Laboratory Tests Test 04/19/17 12:19 04/19/17 17:43 04/20/17 00:26 04/20/17 04:30 Bedside Glucose 142 153 149 White Blood Count 60.4 #H Red Blood Count 2.93 L Hemoglobin 9.9 L Hematocrit 32.0 L Mean Corpuscular Volume 109.2 H Mean Corpuscular Hemoglobin 33.8 H Mean Corpuscular Hemoglobin Concent 30.9 L Red Cell Distribution Width 14.9 H Platelet Count 379 Mean Platelet Volume 11.2 H Neutrophils % 81.0 H Band Neutrophils % 15.0 H Lymphocytes % 3.0 L Basophils % Myelocytes % 1.0 H Neutrophils # 48.9 H Lymphocytes # 1.8 Basophils # Myelocytes # 0.6 Anisocytosis 1+ Sodium Level 147 H Potassium Level 4.0 Chloride Level 109 Carbon Dioxide Level 24 Anion Gap 18 H Blood Urea Nitrogen 56 H Creatinine 1.24 H Glucose Level 121 Lactic Acid Level 1.2 Calcium Level 9.3 Phosphorus Level 6.9 H Magnesium Level 2.2 Total Bilirubin 0.0 L Direct Bilirubin 0.00 Indirect Bilirubin 0.0 Aspartate Amino Transf (AST/SGOT) 30 Alanine Aminotransferase (ALT/SGPT) 76 H Alkaline Phosphatase 125 H Total Protein 6.2 Albumin 3.2 L Globulin 3.00 Albumin/Globulin Ratio 1.06 Test 04/20/17 05:00 04/20/17 06:28 Blood Gas Specimen Source Blood arterial Arterial Blood Date Drawn 04/20/2017 4:26:49 AM Arterial Blood pH (Temp corrected) 7.143 *L Arterial Blood pCO2 (Temp correct) 62.2 H Arterial Blood pO2 (Temp corrected) 268.2 H Arterial Blood HCO3 20.8 L Arterial Blood Base Excess -8.5 L Arterial Blood Oxygen Saturation 99.2 H Jonn Test N/A Arterial Blood Gas Puncture Site Right Brachial Arterial Blood Carboxyhemoglobin 0.3 Arterial Blood Methemoglobin 0.5 Blood Gas A-a O2 Differential 382.6 H Oxyhemoglobin Percent 98.4 Total Hemoglobin 11.3 L Blood Gas Temperature 37.0 Blood Gas Respiration Rate 18.0 Blood Gas Actual Respiration Rate 30 Blood Gas Modality MASK - BIPAP FiO2 100.0 Blood Gas Pressure Support 10 Blood Gas IPAP/EPAP Ratio 15/5 Blood Gas Critical Value Read Back [facility] Blood Gas Notified Whom LW Blood Gas Notified Time 04/20/2017 4:37:42 AM Bedside Glucose 122 Medications Medications Current Medications Norepinephrine/ Dextrose (Levophed/D5W) 500 ml @ 0 mls/hr TITRATE IV Last administered on 04/14/17 10:24; Admin Dose 18.75 MLS/HR; Start 04/11/17 at 12:30 Aspirin (Aspirin) 325 mg DAILY NGT Last administered on 04/20/17 08:56; Admin Dose 325 MG; Start 04/12/17 at 09:00 Metoprolol Tartrate (Lopressor) 25 mg BID NGT Last administered on 04/20/17 08: 57; Admin Dose 25 MG; Start 04/11/17 at 21:00 Metoprolol Tartrate (Lopressor) 5 mg Q4H PRN IV HR>110 Hold SBP<110 Last administered on 04/19/17 10:40; Admin Dose 5 MG; Start 04/11/17 at 13:30 Lansoprazole 30 mg 30 mg DAILY GTB Last administered on 04/20/17 08:57; Admin Dose 30 MG; Start 04/12/17 at 09:00 Phenylephrine HCl/ Dextrose (Chuy-Syneph/D5W) 500 ml @ 0 mls/hr TITRATE IV Last administered on 04/12/17 02:52; Admin Dose 75 MLS/HR; Start 04/11/17 at 16:00 Miscellaneous Information 1 ea NOTE XX ; Start 04/11/17 at 16:30 Glucose (Glutose) 15 gm Q15M PRN PO DECREASED GLUCOSE; Start 04/11/17 at 16:30 Glucose (Glutose) 22.5 gm Q15M PRN PO DECREASED GLUCOSE; Start 04/11/17 at 16: 30 Dextrose (D50w Syringe) 25 ml Q15M PRN IV DECREASED GLUCOSE Last administered on 04/12/17 23:56; Admin Dose 25 ML; Start 04/11/17 at 16:30 Dextrose (D50w Syringe) 50 ml Q15M PRN IV DECREASED GLUCOSE; Start 04/11/17 at 16:30 Glucagon (Glucagen) 1 mg Q15M PRN IM DECREASED GLUCOSE; Start 04/11/17 at 16:30 Glucose 15 gm 15 gm Q15M PRN BUCCAL DECREASED GLUCOSE; Start 04/11/17 at 16:30 Midazolam HCl 50 ml @ 1 mls/hr TITRATE IV Last administered on 04/13/17 04:30; Admin Dose 2 MLS/HR; Start 04/11/17 at 23:30 Fentanyl (Sublimaze) 100 ml @ 0.5 mls/hr TITRATE IV Last administered on 02:48; Admin Dose 0.5 MLS/HR; Start 04/12/17 at 09:30 Vancomycin HCl (Vancomycin Oral Syringe) 125 mg Q6 PO Last administered on 06:32; Admin Dose 125 MG; Start 04/12/17 at 12:00 Metoclopramide HCl (Reglan) 10 mg Q6 IV Last administered on 04/20/17 06:32; Admin Dose 10 MG; Start 04/12/17 at 18:00 Insulin Aspart (Novolog Insulin Pen) NOVOLOG *MILD* ALGORI... Q6H SC Last administered on 04/20/17 00:34; Admin Dose 1 UNIT; Start 04/15/17 at 00:00 Furosemide (Lasix) 20 mg DAILY IV Last administered on 04/20/17 08:56; Admin Dose 20 MG; Start 04/16/17 at 09:00 Metronidazole (Flagyl) 500 mg Q8 NGT Last administered on 04/20/17 06:32; Admin Dose 500 MG; Start 04/15/17 at 14:00 IV Flush 10 ml 10 ml PRN PRN IV FLUSH LINE; Start 04/15/17 at 13:00 Ciprofloxacin/ Dextrose (Cipro Ivpb) 200 ml @ 200 mls/hr Q12 IVPB Last administered on 04/20/17 08:57; Admin Dose 200 MLS/HR; Start 04/16/17 at 21:00 Hydrocortisone 25 mg 25 mg TID IV Last administered on 04/20/17 08:56; Admin Dose 25 MG; Start 04/16/17 at 13:00 Meropenem 100 ml @ 200 mls/hr Q12 IVPB Last administered on 04/20/17 08:57; Admin Dose 200 MLS/HR; Start 04/16/17 at 21:00 Vancomycin HCl 750 mg/Sodium Chloride 150 ml @ 75 mls/hr Q36H IVPB Last administered on 04/20/17 00:34; Admin Dose 75 MLS/HR; Start 04/17/17 at 01:00 Caspofungin/ Sodium Chloride (Cancidas/NS) 250 ml @ 250 mls/hr Q24H IVPB Last administered on 04/19/17 09:30; Admin Dose 250 MLS/HR; Start 04/17/17 at 10:00 Amiodarone HCl (Cordarone) 200 mg BID GTB Last administered on 04/20/17 08:56; Admin Dose 200 MG; Start 04/16/17 at 13:00 Diltiazem HCl (Cardizem Iv) 5 mg Q1H PRN IV AFIB GREATER THAN 110 Last administered on 7/6/17at 16:41; Admin Dose 5 MG; Start 04/16/17 at 13:00 Enoxaparin Sodium (Lovenox) 40 mg HS SC Last administered on 04/17/17 20:38; Admin Dose 40 MG; Start 04/17/17 at 21:00; Status Future Hold Heparin Sodium (Porcine) (Heparin (5000 Units/0.5 ml)) 5,000 unit BID SC Last administered on 04/20/17 09:09; Admin Dose 5,000 UNIT; Start 04/18/17 at 16:22 Acetaminophen/ Hydrocodone Bitart ([place] (5/325)) 2 tab Q4H PRN NGT MODERATE PAIN LEVEL 4-6 Last administered on 04/20/17 01:47; Admin Dose 2 TAB; Start 04/18 at 17:30 Citalopram Hydrobromide (Celexa) 20 mg DAILY NGT Last administered on 04/20/17 08:56; Admin Dose 20 MG; Start 04/19/17 at 09:00 Hydralazine HCl (Apresoline) 20 mg Q6H PRN IV sbp ABOVE 160 Last administered on 04/19/17 15:08; Admin Dose 20 MG; Start 04/18/17 at 18:30 Acetaminophen/ Hydrocodone Bitart ([place] (5/325)) 1 tab Q6H PRN GTB PAIN Last administered on 04/19/17 17:53; Admin Dose 1 TAB; Start 04/19/17 at 11:00 IZZY TYLER MD Apr 20, 2017 10:39
[2017-04-20] MEDS: CASPOFUNGIN 35 MG in SOD CHLORIDE 0.9% 250 ML IVPB SCH (10:54)
[2017-04-20] MEDS ORDERED: LACTATED RINGER'S 250 ML IV ONE (11:00)
[2017-04-20] MEDS: hydrALAzine 20 MG INJ IV PRN (12:09)
[2017-04-20] MEDS: HYDROCODONE/APAP (5/325) TAB GTB PRN (12:12)
--- NOTE | 2017-04-20 12:55 | CONS ---
Date/Time of Note Date/Time of Note DATE: 04/20/17 TIME: 12:49 Consult Date/Type/Reason Admit Date/Time Apr 11, 2017 at 11:28 Initial Consult Date 04/12/17 Type of Consultation: Pulm/CCM Ordering Provider: NINA MACIEL DO Subjective Worsening respiratory acidosis on BiPAP. Mental status waxing and waning. Objective Vital Signs Date Time Temp Pulse Resp B/P Pulse Ox O2 Delivery O2 Flow Rate FiO2 04/20/17 09:30 91 20 151/77 99 BIPAP 04/20/17 08:00 97.4 04/20/17 05:40 50 04/18/17 22:00 3.0 Intake and Output 04/19/17 04/19/17 04/20/17 15:00 23:00 07:00 Intake Total 630 ml 50 ml 350 ml Output Total 555 ml 470 ml 782 ml Balance 75 ml -420 ml -432 ml Exam HEENT: Neck supple; no JVD; no LAD; on BIPAP CVS: RRR, S1 and S2 CHEST: Diminished BS b/l ABD: Soft, NT, + BS EXT: No c/c; ++ edema Results/Medications Result Diagram: 04/20/17 0430 04/20/17 0430 Results 24 hrs Laboratory Tests Test 04/19/17 17:43 04/20/17 00:26 04/20/17 04:30 04/20/17 05:00 Bedside Glucose 153 149 White Blood Count 60.4 #H Red Blood Count 2.93 L Hemoglobin 9.9 L Hematocrit 32.0 L Mean Corpuscular Volume 109.2 H Mean Corpuscular Hemoglobin 33.8 H Mean Corpuscular Hemoglobin Concent 30.9 L Red Cell Distribution Width 14.9 H Platelet Count 379 Mean Platelet Volume 11.2 H Neutrophils % 81.0 H Band Neutrophils % 15.0 H Lymphocytes % 3.0 L Basophils % Myelocytes % 1.0 H Neutrophils # 48.9 H Lymphocytes # 1.8 Basophils # Myelocytes # 0.6 Anisocytosis 1+ Sodium Level 147 H Potassium Level 4.0 Chloride Level 109 Carbon Dioxide Level 24 Anion Gap 18 H Blood Urea Nitrogen 56 H Creatinine 1.24 H Glucose Level 121 Lactic Acid Level 1.2 Calcium Level 9.3 Phosphorus Level 6.9 H Magnesium Level 2.2 Total Bilirubin 0.0 L Direct Bilirubin 0.00 Indirect Bilirubin 0.0 Aspartate Amino Transf (AST/SGOT) 30 Alanine Aminotransferase (ALT/SGPT) 76 H Alkaline Phosphatase 125 H Total Protein 6.2 Albumin 3.2 L Globulin 3.00 Albumin/Globulin Ratio 1.06 Blood Gas Specimen Source Blood arterial Arterial Blood Date Drawn 04/20/2017 4:26:49 AM Arterial Blood pH (Temp corrected) 7.143 *L Arterial Blood pCO2 (Temp correct) 62.2 H Arterial Blood pO2 (Temp corrected) 268.2 H Arterial Blood HCO3 20.8 L Arterial Blood Base Excess -8.5 L Arterial Blood Oxygen Saturation 99.2 H Jonn Test N/A Arterial Blood Gas Puncture Site Right Brachial Arterial Blood Carboxyhemoglobin 0.3 Arterial Blood Methemoglobin 0.5 Blood Gas A-a O2 Differential 382.6 H Oxyhemoglobin Percent 98.4 Total Hemoglobin 11.3 L Blood Gas Temperature 37.0 Blood Gas Respiration Rate 18.0 Blood Gas Actual Respiration Rate 30 Blood Gas Modality MASK - BIPAP FiO2 100.0 Blood Gas Pressure Support 10 Blood Gas IPAP/EPAP Ratio 15/5 Blood Gas Critical Value Read Back EQIAN Blood Gas Notified Whom LW Blood Gas Notified Time 04/20/2017 4:37:42 AM Test 04/20/17 06:28 04/20/17 12:08 Bedside Glucose 122 133 Medications Current Medications Norepinephrine/ Dextrose (Levophed/D5W) 500 ml @ 0 mls/hr TITRATE IV Last administered on 04/14/17 10:24; Admin Dose 18.75 MLS/HR; Start 04/11/17 at 12:30 Aspirin (Aspirin) 325 mg DAILY NGT Last administered on 04/20/17 08:56; Admin Dose 325 MG; Start 04/12/17 at 09:00 Metoprolol Tartrate (Lopressor) 25 mg BID NGT Last administered on 04/20/17 08: 57; Admin Dose 25 MG; Start 04/11/17 at 21:00 Metoprolol Tartrate (Lopressor) 5 mg Q4H PRN IV HR>110 Hold SBP<110 Last administered on 04/19/17 10:40; Admin Dose 5 MG; Start 04/11/17 at 13:30 Lansoprazole 30 mg 30 mg DAILY GTB Last administered on 04/20/17 08:57; Admin Dose 30 MG; Start 04/12/17 at 09:00 Phenylephrine HCl/ Dextrose (Chuy-Syneph/D5W) 500 ml @ 0 mls/hr TITRATE IV Last administered on 04/12/17 02:52; Admin Dose 75 MLS/HR; Start 04/11/17 at 16:00 Miscellaneous Information 1 ea NOTE XX ; Start 04/11/17 at 16:30 Glucose (Glutose) 15 gm Q15M PRN PO DECREASED GLUCOSE; Start 04/11/17 at 16:30 Glucose (Glutose) 22.5 gm Q15M PRN PO DECREASED GLUCOSE; Start 04/11/17 at 16: 30 Dextrose (D50w Syringe) 25 ml Q15M PRN IV DECREASED GLUCOSE Last administered on 04/12/17 23:56; Admin Dose 25 ML; Start 04/11/17 at 16:30 Dextrose (D50w Syringe) 50 ml Q15M PRN IV DECREASED GLUCOSE; Start 04/11/17 at 16:30 Glucagon (Glucagen) 1 mg Q15M PRN IM DECREASED GLUCOSE; Start 04/11/17 at 16:30 Glucose 15 gm 15 gm Q15M PRN BUCCAL DECREASED GLUCOSE; Start 04/11/17 at 16:30 Midazolam HCl 50 ml @ 1 mls/hr TITRATE IV Last administered on 04/13/17 04:30; Admin Dose 2 MLS/HR; Start 04/11/17 at 23:30 Fentanyl (Sublimaze) 100 ml @ 0.5 mls/hr TITRATE IV Last administered on 02:48; Admin Dose 0.5 MLS/HR; Start 04/12/17 at 09:30 Vancomycin HCl (Vancomycin Oral Syringe) 125 mg Q6 PO Last administered on 12:09; Admin Dose 125 MG; Start 04/12/17 at 12:00 Metoclopramide HCl (Reglan) 10 mg Q6 IV Last administered on 04/20/17 12:09; Admin Dose 10 MG; Start 04/12/17 at 18:00 Insulin Aspart (Novolog Insulin Pen) NOVOLOG *MILD* ALGORI... Q6H SC Last administered on 04/20/17 00:34; Admin Dose 1 UNIT; Start 04/15/17 at 00:00 Furosemide (Lasix) 20 mg DAILY IV Last administered on 04/20/17 08:56; Admin Dose 20 MG; Start 04/16/17 at 09:00 Metronidazole (Flagyl) 500 mg Q8 NGT Last administered on 04/20/17 06:32; Admin Dose 500 MG; Start 04/15/17 at 14:00 IV Flush 10 ml 10 ml PRN PRN IV FLUSH LINE; Start 04/15/17 at 13:00 Ciprofloxacin/ Dextrose (Cipro Ivpb) 200 ml @ 200 mls/hr Q12 IVPB Last administered on 04/20/17 08:57; Admin Dose 200 MLS/HR; Start 04/16/17 at 21:00 Hydrocortisone 25 mg 25 mg TID IV Last administered on 04/20/17 12:09; Admin Dose 25 MG; Start 04/16/17 at 13:00 Meropenem 100 ml @ 200 mls/hr Q12 IVPB Last administered on 04/20/17 08:57; Admin Dose 200 MLS/HR; Start 04/16/17 at 21:00 Vancomycin HCl 750 mg/Sodium Chloride 150 ml @ 75 mls/hr Q36H IVPB Last administered on 04/20/17 00:34; Admin Dose 75 MLS/HR; Start 04/17/17 at 01:00 Caspofungin/ Sodium Chloride (Cancidas/NS) 250 ml @ 250 mls/hr Q24H IVPB Last administered on 04/20/17 10:54; Admin Dose 250 MLS/HR; Start 04/17/17 at 10:00 Amiodarone HCl (Cordarone) 200 mg BID GTB Last administered on 04/20/17 08:56; Admin Dose 200 MG; Start 04/16/17 at 13:00 Diltiazem HCl (Cardizem Iv) 5 mg Q1H PRN IV AFIB GREATER THAN 110 Last administered on 04/17/17 16:41; Admin Dose 5 MG; Start 04/16/17 at 13:00 Enoxaparin Sodium (Lovenox) 40 mg HS SC Last administered on 04/17/17 20:38; Admin Dose 40 MG; Start 04/17/17 at 21:00; Status Future Hold Heparin Sodium (Porcine) (Heparin (5000 Units/0.5 ml)) 5,000 unit BID SC Last administered on 04/20/17 09:09; Admin Dose 5,000 UNIT; Start 04/18/17 at 16:22 Acetaminophen/ Hydrocodone Bitart ([place] (5/325)) 2 tab Q4H PRN NGT MODERATE PAIN LEVEL 4-6 Last administered on 04/20/17 01:47; Admin Dose 2 TAB; Start 04/18 at 17:30 Citalopram Hydrobromide (Celexa) 20 mg DAILY NGT Last administered on 04/20/17 08:56; Admin Dose 20 MG; Start 04/19/17 at 09:00 Hydralazine HCl (Apresoline) 20 mg Q6H PRN IV sbp ABOVE 160 Last administered on 04/20/17 12:09; Admin Dose 20 MG; Start 04/18/17 at 18:30 Acetaminophen/ Hydrocodone Bitart ([place] (5/325)) 1 tab Q6H PRN GTB PAIN Last administered on 04/20/17 12:12; Admin Dose 1 TAB; Start 04/19/17 at 11:00 Assessment/Plan Chief Complaint/Hosp Course Briefly, this is a 66-year-old female with a history of chronic resp failure s/ p prolonged hospitalization and trach, recently decannulated ~ 3 weeks ago, dysphagia s/p PEG, admitted 2 [facility] prior from [facility] with severe septic shock requiring press[facility] and [facility] Problems: Additional Assessment/Plan IMP:1. Status post septic Shock--likely due to multilobar aspiration pneumonia vs. HCAP possibly secondary to acute cholecystitis also 2. Multifocal pneumonia aspiration vs.HCAP 3. Hypercapnic Respiratory Failure--likely due to critical illness myopathy/ neuropathy 4. Status post lactic acidosis. Persistent leukocytosis, improved today 5. Demand Ischemia 6. Cholecystitis, pending percutaneous drainage 7. Encephalopathy toxic metabolic 8. Leukocytosis RECS: 1. I had a long discussion by phone and then again in person with her about her overall condition and the fact that she is failing on BiPAP. I also indicated to him that I believe that she has a critical illness myopathy which is causing her respiratory muscle weakness. At this time, intubation would be advisable. However, Valentin, insists on continuing with BiPAP, understanding full well that if it is done emergently, it can place her life at risk. 2. Will change to IPAP 18; EPAP 5 and rate 30 3. ABG 4. Prognosis poor Critical care time 40 minutes. Case d/w MAUREEN PALMER MD Apr 20, 2017 12:55
--- NOTE | 2017-04-20 13:19 | CONS ---
Date/Time of Note Date/Time of Note DATE: 04/20/17 TIME: 13:17 Assessment/Plan Assessment/Plan Additional Assessment/Plan 1. Ccute on chronic hypoxemic respiratory failure 2. NSTEMI: due to demand ischemia. 3. CHF: due to diastolic heart failure 4. moderate 5. Paroxysmal atrial fibrillation 6. ANEMIA 7. pneumonia, 8. Sepsis -Patient remains on BiPAP and respiratory status has remained labile. Patient remains in sinus rhythm, would continue amiodarone. Maintain potassium above 4.0 and magnesium above 2.0 to decrease chance of arrhythmias. Dr Garcia to resume care 04/21/2017 Consultation Date/Type/Reason Admit Date/Time Apr 11, 2017 at 11:28 Initial Consult Date 04/14/17 Type of Consultation: cv Referring Provider: NINA MACIEL DO 24 HR Interval Summary Free Text/Dictation Patient remains on BiPAP because of respiratory status. Possible need of reintubation. at bedside Exam/Review of Systems Vital Signs Vitals Vital Signs Date Time Temp Pulse Resp B/P Pulse Ox O2 Delivery O2 Flow Rate FiO2 04/20/17 12:30 99 28 139/69 95 BIPAP 04/20/17 12:00 97.9 04/20/17 05:40 50 04/18/17 22:00 3.0 Intake and Output 04/19/17 04/19/17 04/20/17 15:00 23:00 07:00 Intake Total 630 ml 50 ml 350 ml Output Total 555 ml 470 ml 832 ml Balance 75 ml -420 ml -482 ml Exam On BiPAP, follows commands, appears dyspneic Head: normocephalic, other (On BiPAP) Respiratory: other (Coarse breath sounds bilaterally, no wheezing) Cardiovascular: other (S1-S2 heard), regular rate and rhythm, systolic murmur Gastrointestinal: bowel sounds, non-tender, soft Extremities: edema Results Result Diagram: 04/20/17 0430 04/20/17 0430 Results 24 hrs Laboratory Tests Test 04/19/17 17:43 04/20/17 00:26 04/20/17 04:30 04/20/17 05:00 Bedside Glucose 153 149 White Blood Count 60.4 #H Red Blood Count 2.93 L Hemoglobin 9.9 L Hematocrit 32.0 L Mean Corpuscular Volume 109.2 H Mean Corpuscular Hemoglobin 33.8 H Mean Corpuscular Hemoglobin Concent 30.9 L Red Cell Distribution Width 14.9 H Platelet Count 379 Mean Platelet Volume 11.2 H Neutrophils % 81.0 H Band Neutrophils % 15.0 H Lymphocytes % 3.0 L Basophils % Myelocytes % 1.0 H Neutrophils # 48.9 H Lymphocytes # 1.8 Basophils # Myelocytes # 0.6 Anisocytosis 1+ Sodium Level 147 H Potassium Level 4.0 Chloride Level 109 Carbon Dioxide Level 24 Anion Gap 18 H Blood Urea Nitrogen 56 H Creatinine 1.24 H Glucose Level 121 Lactic Acid Level 1.2 Calcium Level 9.3 Phosphorus Level 6.9 H Magnesium Level 2.2 Total Bilirubin 0.0 L Direct Bilirubin 0.00 Indirect Bilirubin 0.0 Aspartate Amino Transf (AST/SGOT) 30 Alanine Aminotransferase (ALT/SGPT) 76 H Alkaline Phosphatase 125 H Total Protein 6.2 Albumin 3.2 L Globulin 3.00 Albumin/Globulin Ratio 1.06 Blood Gas Specimen Source Blood arterial Arterial Blood Date Drawn 04/20/2017 4:26:49 AM Arterial Blood pH (Temp corrected) 7.143 *L Arterial Blood pCO2 (Temp correct) 62.2 H Arterial Blood pO2 (Temp corrected) 268.2 H Arterial Blood HCO3 20.8 L Arterial Blood Base Excess -8.5 L Arterial Blood Oxygen Saturation 99.2 H Jonn Test N/A Arterial Blood Gas Puncture Site Right Brachial Arterial Blood Carboxyhemoglobin 0.3 Arterial Blood Methemoglobin 0.5 Blood Gas A-a O2 Differential 382.6 H Oxyhemoglobin Percent 98.4 Total Hemoglobin 11.3 L Blood Gas Temperature 37.0 Blood Gas Respiration Rate 18.0 Blood Gas Actual Respiration Rate 30 Blood Gas Modality MASK - BIPAP FiO2 100.0 Blood Gas Pressure Support 10 Blood Gas IPAP/EPAP Ratio 15/5 Blood Gas Critical Value Read Back E.MUWONGE Blood Gas Notified Whom LW Blood Gas Notified Time 04/20/2017 4:37:42 AM Test 04/20/17 06:28 04/20/17 12:08 Bedside Glucose 122 133 Medications Medications Current Medications Norepinephrine/ Dextrose (Levophed/D5W) 500 ml @ 0 mls/hr TITRATE IV Last administered on 04/14/17t 10:24; Admin Dose 18.75 MLS/HR; Start 04/11/17 at 12:30 Aspirin (Aspirin) 325 mg DAILY NGT Last administered on 04/20/17 08:56; Admin Dose 325 MG; Start 04/12/17 at 09:00 Metoprolol Tartrate (Lopressor) 25 mg BID NGT Last administered on 04/20/17 08: 57; Admin Dose 25 MG; Start 04/11/17 at 21:00 Metoprolol Tartrate (Lopressor) 5 mg Q4H PRN IV HR>110 Hold SBP<110 Last administered on 04/19/17 10:40; Admin Dose 5 MG; Start 04/11/17 at 13:30 Lansoprazole 30 mg 30 mg DAILY GTB Last administered on 04/20/17 08:57; Admin Dose 30 MG; Start 04/12/17 at 09:00 Phenylephrine HCl/ Dextrose (Chuy-Syneph/D5W) 500 ml @ 0 mls/hr TITRATE IV Last administered on 04/12/17 02:52; Admin Dose 75 MLS/HR; Start 04/11/17 at 16:00 Miscellaneous Information 1 ea NOTE XX ; Start 04/11/17 at 16:30 Glucose (Glutose) 15 gm Q15M PRN PO DECREASED GLUCOSE; Start 04/11/17 at 16:30 Glucose (Glutose) 22.5 gm Q15M PRN PO DECREASED GLUCOSE; Start 04/11/17 at 16: 30 Dextrose (D50w Syringe) 25 ml Q15M PRN IV DECREASED GLUCOSE Last administered on 04/12/17 23:56; Admin Dose 25 ML; Start 04/11/17 at 16:30 Dextrose (D50w Syringe) 50 ml Q15M PRN IV DECREASED GLUCOSE; Start 04/11/17 at 16:30 Glucagon (Glucagen) 1 mg Q15M PRN IM DECREASED GLUCOSE; Start 04/11/17 at 16:30 Glucose 15 gm 15 gm Q15M PRN BUCCAL DECREASED GLUCOSE; Start 04/11/17 at 16:30 Midazolam HCl 50 ml @ 1 mls/hr TITRATE IV Last administered on 04/13/17 04:30; Admin Dose 2 MLS/HR; Start 04/11/17 at 23:30 Fentanyl (Sublimaze) 100 ml @ 0.5 mls/hr TITRATE IV Last administered on 02:48; Admin Dose 0.5 MLS/HR; Start 04/12/17 at 09:30 Vancomycin HCl (Vancomycin Oral Syringe) 125 mg Q6 PO Last administered on 12:09; Admin Dose 125 MG; Start 04/12/17 at 12:00 Metoclopramide HCl (Reglan) 10 mg Q6 IV Last administered on 04/20/17 12:09; Admin Dose 10 MG; Start 04/12/17 at 18:00 Insulin Aspart (Novolog Insulin Pen) NOVOLOG *MILD* ALGORI... Q6H SC Last administered on 04/20/17 00:34; Admin Dose 1 UNIT; Start 04/15/17 at 00:00 Furosemide (Lasix) 20 mg DAILY IV Last administered on 04/20/17 08:56; Admin Dose 20 MG; Start 04/16/17 at 09:00 Metronidazole (Flagyl) 500 mg Q8 NGT Last administered on 04/20/17 06:32; Admin Dose 500 MG; Start 04/15/17 at 14:00 IV Flush 10 ml 10 ml PRN PRN IV FLUSH LINE; Start 04/15/17 at 13:00 Ciprofloxacin/ Dextrose (Cipro Ivpb) 200 ml @ 200 mls/hr Q12 IVPB Last administered on 04/20/17 08:57; Admin Dose 200 MLS/HR; Start 04/16/17 at 21:00 Hydrocortisone 25 mg 25 mg TID IV Last administered on 04/20/17 12:09; Admin Dose 25 MG; Start 04/16/17 at 13:00 Meropenem 100 ml @ 200 mls/hr Q12 IVPB Last administered on 04/20/17 08:57; Admin Dose 200 MLS/HR; Start 04/16/17 at 21:00 Vancomycin HCl 750 mg/Sodium Chloride 150 ml @ 75 mls/hr Q36H IVPB Last administered on 04/20/17 00:34; Admin Dose 75 MLS/HR; Start 04/17/17 at 01:00 Caspofungin/ Sodium Chloride (Cancidas/NS) 250 ml @ 250 mls/hr Q24H IVPB Last administered on 04/20/17 10:54; Admin Dose 250 MLS/HR; Start 04/17/17 at 10:00 Amiodarone HCl (Cordarone) 200 mg BID GTB Last administered on 04/20/17 08:56; Admin Dose 200 MG; Start 04/16/17 at 13:00 Diltiazem HCl (Cardizem Iv) 5 mg Q1H PRN IV AFIB GREATER THAN 110 Last administered on 04/17/17 16:41; Admin Dose 5 MG; Start 04/16/17 at 13:00 Enoxaparin Sodium (Lovenox) 40 mg HS SC Last administered on 04/17/17 20:38; Admin Dose 40 MG; Start 04/17/17 at 21:00; Status Future Hold Heparin Sodium (Porcine) (Heparin (5000 Units/0.5 ml)) 5,000 unit BID SC Last administered on 04/20/17 09:09; Admin Dose 5,000 UNIT; Start 04/18/17 at 16:22 Acetaminophen/ Hydrocodone Bitart ([place] (5/325)) 2 tab Q4H PRN NGT MODERATE PAIN LEVEL 4-6 Last administered on 04/20/17 01:47; Admin Dose 2 TAB; Start 04/18 at 17:30 Citalopram Hydrobromide (Celexa) 20 mg DAILY NGT Last administered on 04/20/17 08:56; Admin Dose 20 MG; Start 04/19/17 at 09:00 Hydralazine HCl (Apresoline) 20 mg Q6H PRN IV sbp ABOVE 160 Last administered on 04/20/17 12:09; Admin Dose 20 MG; Start 04/18/17 at 18:30 Acetaminophen/ Hydrocodone Bitart ([place] (5/325)) 1 tab Q6H PRN GTB PAIN Last administered on 04/20/17 12:12; Admin Dose 1 TAB; Start 04/19/17 at 11:00 Minh Hanson DO Apr 20, 2017 13:19
[2017-04-20 13:30] LABS: AADO2 Arterial 167.9 mmHg (7.0-24.0); Allen Test ACCEPTAB; Arterial Base Excess -5.8 mmol/L (-3.0-3); Arterial COHb 0.3 % (0.0-3.0); Arterial HCO3 20.4 mmol/L (22.0-26.0); Arterial MetHb 0.3 % (0.0-1.5); Arterial Total Hemglobin 11.1 g/dl (12.0-18.0); Blood Gas IEPAP 18/5; MODE MASK - BIPAP
--- NOTE | 2017-04-20 15:18 | CONS ---
Date/Time of Note Date/Time of Note DATE: 04/20/17 TIME: 15:12 Assessment/Plan Assessment/Plan Chief Complaint/Hosp Course Remains on BiPAP. More lethargic, arousable. Temperature 97.9 pulse 99 respirations 28 blood pressure 139/69 saturation 89% on 50 FiO2 WBC 6.4 H&H 9.9 and 32 platelets 379 neutrophils 81 bands 15 lymphs 3 BUN 56 creatinine 1.24 Microbiology: Sputum culture on admission grew multidrug-resistant pseudomonas aeruginosa, Klebsiella ESBL, Ramonita glabrata Antibiotics: Cancidas vancomycin ciprofloxacin meropenem Flagyl Indwelling's right upper extremity PICC line Latif Physical examination: Well-developed fragile chronically ill-appearing elderly woman who is in no distress. Head atraumatic, normocephalic sclera nonicteric. Neck is supple. Chest rise symmetrical breath sounds diminished bases. Abdomen soft, bowel tones present. Extremities with bilateral edema. Assessment: 1. Severe sepsis, status post shock 2. Acute on chronic respiratory failure likely secondary to aspiration event 3. Healthcare associated pneumonia 4. Worsening leukocytosis, patient had been on Solu-Cortef since admission 5. Diarrhea with a history of C. difficile colitis, on empiric Flagyl 6. 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 Gallstones ==> no evidence for cholecystitis per repeat abdominal ultrasound 10. Resolving encephalopathy Plan: Doing poorly, pulmonary team recommended intubation, refused, continue antibiotics, steroids taper, will repeat cultures given worsening leukocytosis Discussed with Discussed with RN Problems: Consultation Date/Type/Reason Admit Date/Time Apr 11, 2017 at 11:28 Initial Consult Date 04/12/17 Type of Consultation: ID Referring Provider: NINA MACIEL DO Exam/Review of Systems Vital Signs Vitals Vital Signs Date Time Temp Pulse Resp B/P Pulse Ox O2 Delivery O2 Flow Rate FiO2 04/20/17 13:48 89 50 04/20/17 13:20 98 04/20/17 12:30 28 139/69 BIPAP 04/20/17 12:00 97.9 04/18/17 22:00 3.0 Intake and Output 04/19/17 04/19/17 04/20/17 15:00 23:00 07:00 Intake Total 630 ml 50 ml 350 ml Output Total 555 ml 470 ml 832 ml Balance 75 ml -420 ml -482 ml Results Result Diagram: 04/20/17 0430 04/20/17 0430 Results 24 hrs Laboratory Tests Test 04/19/17 17:43 04/20/17 00:26 04/20/17 04:30 04/20/17 05:00 Bedside Glucose 153 149 White Blood Count 60.4 #H Red Blood Count 2.93 L Hemoglobin 9.9 L Hematocrit 32.0 L Mean Corpuscular Volume 109.2 H Mean Corpuscular Hemoglobin 33.8 H Mean Corpuscular Hemoglobin Concent 30.9 L Red Cell Distribution Width 14.9 H Platelet Count 379 Mean Platelet Volume 11.2 H Neutrophils % 81.0 H Band Neutrophils % 15.0 H Lymphocytes % 3.0 L Basophils % Myelocytes % 1.0 H Neutrophils # 48.9 H Lymphocytes # 1.8 Basophils # Myelocytes # 0.6 Anisocytosis 1+ Sodium Level 147 H Potassium Level 4.0 Chloride Level 109 Carbon Dioxide Level 24 Anion Gap 18 H Blood Urea Nitrogen 56 H Creatinine 1.24 H Glucose Level 121 Lactic Acid Level 1.2 Calcium Level 9.3 Phosphorus Level 6.9 H Magnesium Level 2.2 Total Bilirubin 0.0 L Direct Bilirubin 0.00 Indirect Bilirubin 0.0 Aspartate Amino Transf (AST/SGOT) 30 Alanine Aminotransferase (ALT/SGPT) 76 H Alkaline Phosphatase 125 H Total Protein 6.2 Albumin 3.2 L Globulin 3.00 Albumin/Globulin Ratio 1.06 Blood Gas Specimen Source Blood arterial Arterial Blood Date Drawn 04/20/2017 4:26:49 AM Arterial Blood pH (Temp corrected) 7.143 *L Arterial Blood pCO2 (Temp correct) 62.2 H Arterial Blood pO2 (Temp corrected) 268.2 H Arterial Blood HCO3 20.8 L Arterial Blood Base Excess -8.5 L Arterial Blood Oxygen Saturation 99.2 H Jonn Test N/A Arterial Blood Gas Puncture Site Right Brachial Arterial Blood Carboxyhemoglobin 0.3 Arterial Blood Methemoglobin 0.5 Blood Gas A-a O2 Differential 382.6 H Oxyhemoglobin Percent 98.4 Total Hemoglobin 11.3 L Blood Gas Temperature 37.0 Blood Gas Respiration Rate 18.0 Blood Gas Actual Respiration Rate 30 Blood Gas Modality MASK - BIPAP FiO2 100.0 Blood Gas Pressure Support 10 Blood Gas IPAP/EPAP Ratio 15/5 Blood Gas Critical Value Read Back E.MUWONGE Blood Gas Notified Whom LW Blood Gas Notified Time 04/20/2017 4:37:42 AM Test 04/20/17 06:28 04/20/17 12:08 04/20/17 13:00 Bedside Glucose 122 133 Blood Gas Specimen Source Blood arterial Arterial Blood Date Drawn 04/20/2017 1:15:32 PM Arterial Blood pH (Temp corrected) 7.293 *L Arterial Blood pCO2 (Temp correct) 43.1 Arterial Blood pO2 (Temp corrected) 67.7 L Arterial Blood HCO3 20.4 L Arterial Blood Base Excess -5.8 L Arterial Blood Oxygen Saturation 92.6 L Jonn Test ACCEPTAB Arterial Blood Gas Puncture Site Right Radial Arterial Blood Carboxyhemoglobin 0.3 Arterial Blood Methemoglobin 0.3 Blood Gas A-a O2 Differential 167.9 H Oxyhemoglobin Percent 92.0 L Total Hemoglobin 11.1 L Blood Gas Temperature 37.0 Blood Gas Respiration Rate 30.0 Blood Gas Actual Respiration Rate 31 Blood Gas Modality MASK - BIPAP FiO2 40.0 Blood Gas IPAP/EPAP Ratio 18/5 Blood Gas Critical Value Read Back ABHILASH RN Blood Gas Notified Whom CW Blood Gas Notified Time 04/20/2017 1:29:52 PM Medications Medications Current Medications Norepinephrine/ Dextrose (Levophed/D5W) 500 ml @ 0 mls/hr TITRATE IV Last administered on 04/14/17 10:24; Admin Dose 18.75 MLS/HR; Start 04/11/17 at 12:30 Aspirin (Aspirin) 325 mg DAILY NGT Last administered on 04/20/17 08:56; Admin Dose 325 MG; Start 04/12/17 at 09:00 Metoprolol Tartrate (Lopressor) 25 mg BID NGT Last administered on 04/20/17 08: 57; Admin Dose 25 MG; Start 04/11/17 at 21:00 Metoprolol Tartrate (Lopressor) 5 mg Q4H PRN IV HR>110 Hold SBP<110 Last administered on 04/19/17 10:40; Admin Dose 5 MG; Start 04/11/17 at 13:30 Lansoprazole 30 mg 30 mg DAILY GTB Last administered on 04/20/17 08:57; Admin Dose 30 MG; Start 04/12/17 at 09:00 Phenylephrine HCl/ Dextrose (Chuy-Syneph/D5W) 500 ml @ 0 mls/hr TITRATE IV Last administered on 04/12/17 02:52; Admin Dose 75 MLS/HR; Start 04/11/17 at 16:00 Miscellaneous Information 1 ea NOTE XX ; Start 04/11/17 at 16:30 Glucose (Glutose) 15 gm Q15M PRN PO DECREASED GLUCOSE; Start 04/11/17 at 16:30 Glucose (Glutose) 22.5 gm Q15M PRN PO DECREASED GLUCOSE; Start 04/11/17 at 16: 30 Dextrose (D50w Syringe) 25 ml Q15M PRN IV DECREASED GLUCOSE Last administered on 04/12/17 23:56; Admin Dose 25 ML; Start 04/11/17 at 16:30 Dextrose (D50w Syringe) 50 ml Q15M PRN IV DECREASED GLUCOSE; Start 04/11/17 at 16:30 Glucagon (Glucagen) 1 mg Q15M PRN IM DECREASED GLUCOSE; Start 04/11/17 at 16:30 Glucose 15 gm 15 gm Q15M PRN BUCCAL DECREASED GLUCOSE; Start 04/11/17 at 16:30 Midazolam HCl 50 ml @ 1 mls/hr TITRATE IV Last administered on 04/13/17 04:30; Admin Dose 2 MLS/HR; Start 04/11/17 at 23:30 Fentanyl (Sublimaze) 100 ml @ 0.5 mls/hr TITRATE IV Last administered on 02:48; Admin Dose 0.5 MLS/HR; Start 04/12/17 at 09:30 Vancomycin HCl (Vancomycin Oral Syringe) 125 mg Q6 PO Last administered on 12:09; Admin Dose 125 MG; Start 04/12/17 at 12:00 Metoclopramide HCl (Reglan) 10 mg Q6 IV Last administered on 04/20/17 12:09; Admin Dose 10 MG; Start 04/12/17 at 18:00 Insulin Aspart (Novolog Insulin Pen) NOVOLOG *MILD* ALGORI... Q6H SC Last administered on 04/20/17 00:34; Admin Dose 1 UNIT; Start 04/15/17 at 00:00 Furosemide (Lasix) 20 mg DAILY IV Last administered on 04/20/17 08:56; Admin Dose 20 MG; Start 04/16/17 at 09:00 Metronidazole (Flagyl) 500 mg Q8 NGT Last administered on 04/20/17 06:32; Admin Dose 500 MG; Start 04/15/17 at 14:00 IV Flush 10 ml 10 ml PRN PRN IV FLUSH LINE; Start 04/15/17 at 13:00 Ciprofloxacin/ Dextrose (Cipro Ivpb) 200 ml @ 200 mls/hr Q12 IVPB Last administered on 04/20/17 08:57; Admin Dose 200 MLS/HR; Start 04/16/17 at 21:00 Hydrocortisone 25 mg 25 mg TID IV Last administered on 04/20/17 12:09; Admin Dose 25 MG; Start 04/16/17 at 13:00 Meropenem 100 ml @ 200 mls/hr Q12 IVPB Last administered on 04/20/17 08:57; Admin Dose 200 MLS/HR; Start 04/16/17 at 21:00 Vancomycin HCl/ Sodium Chloride (Vancocin/NS) 150 ml @ 75 mls/hr Q36H IVPB Last administered on 04/20/17 00:34; Admin Dose 75 MLS/HR; Start 04/17/17 at 01: 00 Amiodarone HCl (Cordarone) 200 mg BID GTB Last administered on 04/20/17 08:56; Admin Dose 200 MG; Start 04/16/17 at 13:00 Diltiazem HCl (Cardizem Iv) 5 mg Q1H PRN IV AFIB GREATER THAN 110 Last administered on 04/17/17 16:41; Admin Dose 5 MG; Start 04/16/17 at 13:00 Enoxaparin Sodium (Lovenox) 40 mg HS SC Last administered on 04/17/17 20:38; Admin Dose 40 MG; Start 04/17/17 at 21:00; Status Future Hold Heparin Sodium (Porcine) (Heparin (5000 Units/0.5 ml)) 5,000 unit BID SC Last administered on 04/20/17 09:09; Admin Dose 5,000 UNIT; Start 04/18/17 at 16:22 Acetaminophen/ Hydrocodone Bitart (Derby (5/325)) 2 tab Q4H PRN NGT MODERATE PAIN LEVEL 4-6 Last administered on 04/20/17 01:47; Admin Dose 2 TAB; Start 04/18 at 17:30 Citalopram Hydrobromide (Celexa) 20 mg DAILY NGT Last administered on 04/20/17 08:56; Admin Dose 20 MG; Start 04/19/17 at 09:00 Hydralazine HCl (Apresoline) 20 mg Q6H PRN IV sbp ABOVE 160 Last administered on 04/20/17 12:09; Admin Dose 20 MG; Start 04/18/17 at 18:30 Acetaminophen/ Hydrocodone Bitart 1 tab 1 tab Q6H PRN GTB PAIN Last administered on 04/20/17 12:12; Admin Dose 1 TAB; Start 04/19/17 at 11:00 Caspofungin/ Sodium Chloride (Cancidas/NS) 250 ml @ 250 mls/hr Q24H IV ; Start 04/21/17 at 10:00 Miscellaneous Information (*Rx Drug Level Order Reminder*) VANCOMYCIN TROUGH AT 1200 ONCE ONCE XX ; Start 04/21/17 at 12:00; Stop 04/21/17 at 12:01 LORETO MCKEON NP Apr 20, 2017 15:18
--- NOTE | 2017-04-20 16:01 | RADRPT ---
PROCEDURE: XR Chest. CLINICAL INDICATION: Shortness of breath. TECHNIQUE: Single frontal view. COMPARISON: 04/19/2017. FINDINGS: The right arm PICC line remains in satisfactory position. There is pulmonary edema and there are sm all bilateral pleural effusions, unchanged. The heart is mildly enlarged. There is calcification in the aorta consistent with atherosclerosis. There is no pneumothorax. IMPRESSION: 1. Unchanged pulmonary edema and small bilateral pleural effusions. RPTAT: QQ .Guero Guadalupe MD, MD Date Time Electronically viewed and signed by .Guero Guadalupe MD, MD on 04/20/2017 16:01 .R/
--- NOTE | 2017-04-20 16:57 | PN ---
Date/Time of Note Date/Time of Note DATE: 04/20/17 TIME: 16:52 Assessment/Plan Lines/Catheters IV Catheter Type (from [facility]): PICC Line Latif in Place (from [facility]): Yes Assessment/Plan Chief Complaint/Hosp Course 1. Cholelithiasis ? cholecystitis: Ct abd: sludge and small stones in the gallbladder. No gallbladder wall thickening is noted with some pericholecystic fluid is present. Patient off pressors; OGT no output; HIDA positive; IR drain placement cancelled by radiologist since US without evidence of infection. Therefore, Dr. Guadalupe believes the HIDA is false positive. -No surgical intervention required at this time -will await medical optimization 2. Pneumonia: Recurrent; no fevers; intubated; less secretions; CXR 04/16 Changes of pulmonary vascular congestion and increased interstitial markings. sputum cx : PSEUDOMONAS AERUGINOSA, K PNEUMO ESBL, NASRIN GLABRATA; Worsening respiratory status and refused intubation today for now. -pulmonary toilet -abx per ID -diuresis -bipap 3. Vent dependent respiratory failure: 2/2 aspiration PNA+ CHF; Extubated on bipap but labile respiratory status -as above 4. Septic shock: improved -on abx -supportive 5. Uncontrolled Afib: s/p amiodarone drip, on oral amiodarone Now SR -medical optimization -lovenox 6. Elevated troponin:NSTEMI; septic shock/demand ischemia -trend 7. eukocytosis with lactic acidosis: 2/2 pneumonia vs. steroids vs. other ( urine, blood cultures negative); Worsening status. -abx -judicious fluid management -supportive measures -poor prognosis 8. KEYONNA: likely 2/2 septic shock -judicious fluid management -avoid nephrotoxic agents 9. CHF: -judicious fluid management -medical optimization 10. Adrenal Insufficiency -solucortef 11. Hypomagnesemia: normalized -electrolyte optimization -monitor for cardiac abnormalities 12. Hypothyroidism -cont. synthroid 13. Macrocytic anemia: chronic vs. dilutional vs. acute bleed vs. b12/folate deficiency; h/h slightly lower today -monitor -Transfuse as needed 14. Transaminitis: likely 2/2 septic shock vs. cholecystitis; improved -trend, monitor 15. Diarrhea: 2/2 abx vs. enteritis: resolved -start probiotics -stool cultures 16. Thrombocytosis: 2/2 inflammatory vs. drug induced vs. other; normalized -monitor -bleeding precautions -supportive 17. Encephalopathy: 2/2 toxic metabolic vs. anoxic injury; CT: No acute intracranial hemorrhage or mass effect. Mild chronic microvascular disease and intracranial atherosclerosis; more alert and communicative; EEG shows no seizure activity -supportive 18. Bilateral upper extremity edema: likely 2/2 decreased movement vs. thrombosis; initial doppler negative, repeat doppler left arm (+) Thrombus -elevate extremities -supportive -anticoagulation 19. Hypoalbuminemia: 2/2 malnutrition +/- inflammation; tolerating tube feeds -nutrition optimization -as above Thank you, Problems: Subjective 24 Hr Interval Summary Worsening leukocytosis and bandemia. Respiratory status labile on bipap with worsening acidosis. has refused intubation recommended by Pulm. No fevers, now in SR. No cough, palpitations, cp, abdominal pain, n/v/d. Tolerated tube feedings. Bowel function. Exam/Review of Systems Vital Signs Vitals Vital Signs Date Time Temp Pulse Resp B/P Pulse Ox O2 Delivery O2 Flow Rate FiO2 04/20/17 16:00 97.5 98 30 131/81 99 BIPAP 04/20/17 13:48 50 04/18/17 22:00 3.0 Intake and Output 04/19/17 04/19/17 04/20/17 15:00 23:00 07:00 Intake Total 630 ml 50 ml 350 ml Output Total 555 ml 470 ml 832 ml Balance 75 ml -420 ml -482 ml Exam Free Text/Dictation Constitutional: Awake. Increased work of breathing Head: atraumatic, normocephalic Eyes: PERRL, nl lids, nl sclera ENMT: No mucosa pink and moist (pink and dry) Neck: non-tender, supple Respiratory: Increased effort, no wheezing Cardiovascular: nl pulses, regular rate and rhythm, NSR Gastrointestinal: non-tender, soft, GT tubes site no erythema, no drainage, mildly distended, No rebound tenderness or guarding Genitourinary - Female: nl external genitalia Musculoskeletal: nl extremities to inspection Extremities: normal pulses, min edema, mod left arm Neurological: more responsive Skin: nl turgor, No rash or lesions Lymph: nl lymph nodes Results Result Diagram: 04/20/17 0430 04/20/17 0430 PATRICK QUINTERO MD Apr 20, 2017 16:57
[2017-04-20] MEDS: METOPROLOL 5 MG INJ IV PRN (17:36)
[2017-04-21] VITALS (45 sets, daily range): BP systolic 71–193; BP diastolic 42–107; PULSE 0–145; RESP 10–41
[2017-04-21 05:01] LABS: ADD SCAN DIFF NO
[2017-04-21 05:02] LABS: ABNORMAL IP MESSAGE 1; BASOPHIL # 0.1 10^3/ul (0.0-0.1); BASOPHILS % 0.2 % (0.0-2.0); HEMOGLOBIN 9.2 g/dl (12.0-16.0); LYMPHOCYTES # 0.6 10^3/ul (0.8-2.9); LYMPHOCYTES % 1.7 % (15.0-51.0); MEAN CORPUSCULAR HEMOGLOBIN 33.6 pg (29.0-33.0); MEAN CORPUSCULAR HGB CONC 31.7 g/dl (32.0-37.0); MEAN CORPUSCULAR VOLUME 105.8 fl (82.0-101.0); MEAN PLATELET VOLUME 11.1 fl (7.4-10.4); MONOCYTES % 2.9 % (0.0-11.0); NEUTROPHIL # 31.9 10^3/ul (1.6-7.5); NEUTROPHILS % 91.8 % (39.0-77.0); PLATELET COUNT 394 10^3/UL (140-415); RED BLOOD COUNT 2.74 10^6/ul (4.20-5.40); RED CELL DISTRIBUTION WIDTH 15.3 % (11.5-14.5)
[2017-04-21 05:12] LABS: WHITE BLOOD COUNT 34.7 10^3/ul (4.8-10.8)
[2017-04-21] MEDS: METOCLOPRAMIDE 10 MG INJ IV SCH ×3 (05:28→18:24)
[2017-04-21] MEDS: metroNIDAZOLE 500 MG TAB NGT SCH ×3 (05:28→21:24)
[2017-04-21 05:30] LABS: ALBUMIN 2.8 g/dl (3.3-4.9); ALBUMIN/GLOBULIN RATIO 1.16; CALCIUM 8.7 mg/dl (8.4-10.2); CREATININE 1.23 mg/dl (0.44-1.00); MAGNESIUM 2.1 mg/dl (1.7-2.5); PHOSPHORUS 5.7 mg/dl (2.5-4.9); POTASSIUM 3.7 mmol/L (3.5-5.1); TOTAL PROTEIN 5.2 g/dl (6.1-8.1)
[2017-04-21] MEDS: INSULIN ASPART [NOVOLOG] 3 ML PEN SC SCH ×3 (05:30→18:39)
[2017-04-21] MEDS: LEVOTHYROXINE 75 MCG TAB GTB SCH (06:10)
--- NOTE | 2017-04-21 07:55 | RADRPT ---
PROCEDURE: XR Chest. CLINICAL INDICATION: Shortness of breath. TECHNIQUE: Single frontal view. COMPARISON: 04/20/2017. FINDINGS: The right arm PICC line remains in satisfactory position. There is pulmonary edema and there are sma ll bilateral pleural effusions, slightly improved. The heart is mildly enlarged. There is calcification in the aorta consistent with atherosclerosis. There is no pneumothorax. Surgical clips are present in the right side of the neck. IMPRESSION: 1. Slightly improved pulmonary edema. 2. No other change from 04/20/2017. RPTAT: QQ .Guero Guadalupe MD, MD Date Time Electronically viewed and signed by .Guero Guadalupe MD, MD on 04/21/2017 07:54 .R/
--- NOTE | 2017-04-21 08:12 | PN ---
Date/Time of Note Date/Time of Note DATE: 04/21/17 TIME: 08:07 Assessment/Plan Lines/Catheters IV Catheter Type (from [facility]): PICC Line Latif in Place (from [facility]): Yes Assessment/Plan Chief Complaint/Hosp Course 1. Cholelithiasis ? cholecystitis: Ct abd: sludge and small stones in the gallbladder. No gallbladder wall thickening is noted with some pericholecystic fluid is present. Patient off pressors; OGT no output; HIDA positive; IR drain placement cancelled by radiologist since US without evidence of infection. Therefore, Dr. Guadalupe believes the HIDA is false positive. -No surgical intervention required at this time -will await medical optimization 2. Pneumonia: Recurrent; no fevers; intubated; less secretions; CXR 04/20 pulmonary edema and small bilateral pleural effusions. sputum cx: PSEUDOMONAS AERUGINOSA, K PNEUMO ESBL, NASRIN GLABRATA; on bipap; respiratory acidosis improved -pulmonary toilet -abx per ID -diuresis -bipap 3. Vent dependent respiratory failure: 2/2 aspiration PNA+ CHF; Extubated on bipap but labile respiratory status, appears comfortable -as above 4. Septic shock: improved -on abx -supportive 5. Uncontrolled Afib: s/p amiodarone drip, on oral amiodarone Now SR -medical optimization -lovenox 6. Elevated troponin:NSTEMI; septic shock/demand ischemia -trend 7. Leukocytosis with lactic acidosis: 2/2 pneumonia vs. steroids vs. other ( urine, blood cultures negative); Improving. -abx -judicious fluid management -supportive measures -poor prognosis 8. KEYONNA: likely 2/2 septic shock; improved -judicious fluid management -avoid nephrotoxic agents 9. CHF: -judicious fluid management -medical optimization 10. Adrenal Insufficiency -solucortef 11. Hypomagnesemia: normalized -electrolyte optimization -monitor for cardiac abnormalities 12. Hypothyroidism -cont. synthroid 13. Macrocytic anemia: chronic vs. dilutional vs. acute bleed vs. b12/folate deficiency; h/h stable; noted gtube output coffee ground (? bleeding from mouth) -monitor -Transfuse as needed 14. Transaminitis: likely 2/2 septic shock vs. cholecystitis; normalized -trend, monitor 15. Diarrhea: 2/2 abx vs. enteritis: resolved -start probiotics -stool cultures 16. Thrombocytosis: 2/2 inflammatory vs. drug induced vs. other; normalized -monitor -bleeding precautions -supportive 17. Encephalopathy: 2/2 toxic metabolic vs. anoxic injury; CT: No acute intracranial hemorrhage or mass effect. Mild chronic microvascular disease and intracranial atherosclerosis; more alert and communicative; EEG shows no seizure activity -supportive 18. Bilateral upper extremity edema: likely 2/2 decreased movement vs. thrombosis; initial doppler negative, repeat doppler left arm (+) Thrombus -elevate extremities -supportive -anticoagulation 19. Hypoalbuminemia: 2/2 malnutrition +/- inflammation; decreased; tube feedings off -nutrition optimization -as above Patient seen and examined in collaboration with Dr. Justus Antonio Problems: Subjective 24 Hr Interval Summary On bipap appears comfortable. Responsive with head nodding or shaking. No gtube output. Noted coffee ground output from yesterday. Tube feedings off. abdominal pain. No fevers, chills, metzger, sz, n/v/d, shortness of breath. Exam/Review of Systems Vital Signs Vitals Vital Signs Date Time Temp Pulse Resp B/P Pulse Ox O2 Delivery O2 Flow Rate FiO2 04/21/17 08:00 97.6 110 30 150/72 98 BIPAP 04/21/17 07:48 60 04/18/17 22:00 3.0 Intake and Output 04/20/17 04/20/17 04/21/17 14:59 22:59 06:59 Intake Total 830 ml 360 ml 50 ml Output Total 465 ml 380 ml 470 ml Balance 365 ml -20 ml -420 ml Exam Free Text/Dictation Constitutional: Awake. on bipap, appears comfortable Head: atraumatic, normocephalic Eyes: PERRL, nl lids, nl sclera ENMT: No mucosa pink and moist (pink and dry) Neck: non-tender, supple Respiratory: Increased effort, no wheezing Cardiovascular: nl pulses, regular rate and rhythm, NSR, Gastrointestinal: tender, soft, GT tubes site no erythema, no drainage, mildly distended, Gtube output coffee ground Genitourinary - Female: nl external genitalia Musculoskeletal: nl extremities to inspection Extremities: normal pulses, bilateral upper/lower extremity edema Neurological: more responsive Skin: nl turgor, No rash or lesions Lymph: nl lymph nodes Results Result Diagram: 04/21/17 0440 04/21/17 0445 ADDISON FREGOSO [employer] Apr 21, 2017 08:12
[2017-04-21 08:32] LABS: AADO2 Arterial 255.7 mmHg (7.0-24.0); Allen Test ACCEPTAB; Arterial Base Excess -3.9 mmol/L (-3.0-3); Arterial COHb 0.3 % (0.0-3.0); Arterial Fraction of Oxyhgb 97.3 % (93.0-99.0); Arterial HCO3 22.3 mmol/L (22.0-26.0); Arterial MetHb 0.4 % (0.0-1.5); Arterial Total Hemglobin 11.9 g/dl (12.0-18.0); Blood Gas IEPAP 18/5; Blood Gas PS 13; MODE BIPAP - S/T
[2017-04-21] MEDS: ASPIRIN 325 MG TAB NGT SCH (08:58)
[2017-04-21] MEDS: CITALOPRAM 20 MG TAB NGT SCH (08:58)
[2017-04-21] MEDS: HYDROCODONE/APAP (5/325) TAB GTB PRN (08:59)
[2017-04-21] MEDS: METOPROLOL 25 MG TAB NGT SCH ×2 (08:59→21:24)
[2017-04-21] MEDS: LANSOPRAZOLE 30 MG CAP GTB SCH (08:59)
[2017-04-21] MEDS: HYDROCORTISONE 100 MG INJ IV SCH ×3 (08:59→21:07)
[2017-04-21] MEDS: AMIODARONE 200 MG TAB GTB SCH ×2 (08:59→21:07)
[2017-04-21] MEDS: FUROSEMIDE 20 MG INJ IV SCH ×2 (09:00→18:00)
[2017-04-21] MEDS: HEPARIN 5,000 UNIT/0.5 ML VIAL SC SCH ×2 (09:00→21:11)
[2017-04-21] MEDS: CIPROFLOXACIN 400MG/D5W 200 ML IVPB SCH ×2 (09:10→21:07)
[2017-04-21] MEDS: MEROPENEM 1 GM/100 ML (PMX) 100 ML IVPB SCH ×2 (09:13→21:55)
--- NOTE | 2017-04-21 09:26 | PN ---
Date/Time of Note Date/Time of Note DATE: 04/21/17 TIME: 09:20 Assessment/Plan VTE Prophylaxis VTE Prophylaxis Intervention: anti-embolic stocking Lines/Catheters IV Catheter Type (from Nrs): PICC Line Central line still needed: Yes Urinary Cath still in place: Yes Reason Cath still needed: other (indicate) Assessment/Plan Chief Complaint/Hosp Course 1. Nonoliguric keyonna. With previously normal baseline creatinine. Etiology is likely secondary to septic KEYONNA with possible ATN -Renal function has been stable, -Continue treatment plan. Supportive care renally dose meds avoid nephrotoxins -Follow-up renal panel - 2. Sepsis, status post shock. Etiology is likely secondary to aspiration pneumonia, -Patient currently off pressors. Remains on antibiotics - Patient's blood cultures have been reviewed. Continue current treatment plan Follow-up with infectious disease 3. Acute hypoxemic respiratory failure. Etiology secondary to pneumonia, CHF - Patient status post extubation. Patient remains in respiratory distress on BiPAP. -Patient may require intubation. Will discuss with pulmonary -We will intensify diuretic therapy 4. Volume overload. Etiology likely secondary to sepsis capillary leak. Possible diastolic heart failure. -Continue Lasix 5. Elevated troponin. Possible non-STEMI type II. We will continue to monitor follow-up with cardiology 6. History of adrenal insufficiency. -Patient currently on stress steroids, -Appreciate endocrinology evaluation 7. Acute encephalopathy etiologies toxic metabolic, possible anoxic injury. Mental status is improving, patient following commands CT scan showed no acute finding Appreciate Dr. Ellis evaluation -Continue to monitor closely 8. possible acute cholecystitis -Patient's HIDA scan was positive - cholecystostomy drain was not placed due to insufficient fluid. -No plan for drain placement at this time. I discussed case with general surgery Appreciate surgery's evaluation. 9. Hypothyroidism continue Synthroid 10. Anemia. Monitor H&H 11. Mineral bone disorder will monitor calcium phosphorus levels 12. h/o tongue cancer with resection 13. History of diastolic heart failure/coronary disease -Continue medical management 14. Leukocytosis. -Etiology is likely secondary sepsis, steroids. -Slowly improving as steroids are being weaned down - Follow-up with infectious disease. 15. Hypomagnesemia. Continue to monitor and replete as needed 16. Left upper extremity DVT. Patient's on heparin and aspirin. Continue to monitor 17. Dysphagia status post PEG -Resume tube feedings, if no further episodes of emesis I spent greater than 40 minutes of critical care time with this pt Problems: Subjective 24 Hr Interval Summary Free Text/Dictation Patient is critically ill on BiPAP. Patient may require intubation. Patient's is hesitant about having his reintubated. He was explained in detail by the tea leaf reader that she is failing BiPAP and would benefit from reintubation. I spoke again with the patient's was at bedside. Informing them again that she feels to be struggling and may require intubation. Patient's tube feedings been on hold Exam/Review of Systems Vital Signs Vitals Vital Signs Date Time Temp Pulse Resp B/P Pulse Ox O2 Delivery O2 Flow Rate FiO2 04/21/17 08:00 97.6 110 30 150/72 98 BIPAP 04/21/17 07:48 60 04/18/17 22:00 3.0 Intake and Output 04/20/17 04/20/17 04/21/17 15:00 23:00 07:00 Intake Total 830 ml 360 ml 50 ml Output Total 465 ml 380 ml 420 ml Balance 365 ml -20 ml -370 ml Exam EENT: Head is normocephalic. NECK: Supple. HEART: Irregular LUNGS: Show diminished breath sounds at base. ABDOMEN: Soft, nontender to palpation without rebound or guarding. EXTREMITIES: Negative for clubbing, cyanosis. Positive edema, left upper extremity DERMATOLOGIC: No rashes. MUSCULOSKELETAL: No joint effusions, positive wounds. NEUROLOGIC: No change in exam. Results Result Diagram: 04/21/17 0440 04/21/17 0445 Results 24 hrs Laboratory Tests Test 04/20/17 12:08 04/20/17 13:00 04/20/17 17:34 04/20/17 23:52 Bedside Glucose 133 128 112 Blood Gas Specimen Source Blood arterial Arterial Blood Date Drawn 04/20/2017 1:15:32 PM Arterial Blood pH (Temp corrected) 7.293 *L Arterial Blood pCO2 (Temp correct) 43.1 Arterial Blood pO2 (Temp corrected) 67.7 L Arterial Blood HCO3 20.4 L Arterial Blood Base Excess -5.8 L Arterial Blood Oxygen Saturation 92.6 L Jonn Test ACCEPTAB Arterial Blood Gas Puncture Site Right Radial Arterial Blood Carboxyhemoglobin 0.3 Arterial Blood Methemoglobin 0.3 Blood Gas A-a O2 Differential 167.9 H Oxyhemoglobin Percent 92.0 L Total Hemoglobin 11.1 L Blood Gas Temperature 37.0 Blood Gas Respiration Rate 30.0 Blood Gas Actual Respiration Rate 31 Blood Gas Modality MASK - BIPAP FiO2 40.0 Blood Gas IPAP/EPAP Ratio 18/5 Blood Gas Critical Value Read Back ABHILASH RN Blood Gas Notified Whom CW Blood Gas Notified Time 04/20/2017 1:29:52 PM Test 04/21/17 04:40 04/21/17 04:45 04/21/17 05:00 04/21/17 05:30 White Blood Count 34.7 #H Red Blood Count 2.74 L Hemoglobin 9.2 L Hematocrit 29.0 L Mean Corpuscular Volume 105.8 H Mean Corpuscular Hemoglobin 33.6 H Mean Corpuscular Hemoglobin Concent 31.7 L Red Cell Distribution Width 15.3 H Platelet Count 394 Mean Platelet Volume 11.1 H Neutrophils % 91.8 H Lymphocytes % 1.7 L Monocytes % 2.9 Eosinophils % 0.0 Basophils % 0.2 Nucleated Red Blood Cells % 0.0 Neutrophils # 31.9 H Lymphocytes # 0.6 L Monocytes # 1.0 H Eosinophils # 0.0 Basophils # 0.1 Nucleated Red Blood Cells # 0.0 Sodium Level 144 Potassium Level 3.7 Chloride Level 110 Carbon Dioxide Level 23 Anion Gap 15 Blood Urea Nitrogen 58 H Creatinine 1.23 H Glucose Level 97 Lactic Acid Level 0.8 Calcium Level 8.7 Phosphorus Level 5.7 H Magnesium Level 2.1 Total Bilirubin 0.0 L Direct Bilirubin 0.00 Indirect Bilirubin 0.0 Aspartate Amino Transf (AST/SGOT) 26 Alanine Aminotransferase (ALT/SGPT) 59 Alkaline Phosphatase 111 Total Protein 5.2 #L Albumin 2.8 L Globulin 2.40 Albumin/Globulin Ratio 1.16 Blood Gas Specimen Source Blood arterial Arterial Blood Date Drawn 04/21/2017 4:48:43 AM Arterial Blood pH (Temp corrected) 7.311 L Arterial Blood pCO2 (Temp correct) 45.2 H Arterial Blood pO2 (Temp corrected) 122.4 H Arterial Blood HCO3 22.3 Arterial Blood Base Excess -3.9 L Arterial Blood Oxygen Saturation 98.0 Jonn Test ACCEPTAB Arterial Blood Gas Puncture Site Right Radial Arterial Blood Carboxyhemoglobin 0.3 Arterial Blood Methemoglobin 0.4 Blood Gas A-a O2 Differential 255.7 H Oxyhemoglobin Percent 97.3 Total Hemoglobin 11.9 L Blood Gas Temperature 37.0 Blood Gas Respiration Rate 30.0 Blood Gas Actual Respiration Rate 31 Blood Gas Modality BIPAP - S/T FiO2 60.0 Blood Gas Pressure Support 13 Blood Gas IPAP/EPAP Ratio 18/5 Blood Gas Notified Whom RTR Blood Gas Notified Time 04/21/2017 5:40:58 AM Bedside Glucose 108 Medications Medications Current Medications Norepinephrine/ Dextrose (Levophed/D5W) 500 ml @ 0 mls/hr TITRATE IV Last administered on 04/14/17 10:24; Admin Dose 18.75 MLS/HR; Start 04/11/17 at 12:30 Aspirin (Aspirin) 325 mg DAILY NGT Last administered on 04/21/17 08:58; Admin Dose 325 MG; Start 04/12/17 at 09:00 Metoprolol Tartrate (Lopressor) 25 mg BID NGT Last administered on 04/21/17 08 :59; Admin Dose 25 MG; Start 04/11/17 at 21:00 Metoprolol Tartrate (Lopressor) 5 mg Q4H PRN IV HR>110 Hold SBP<110 Last administered on 04/20/17 17:36; Admin Dose 5 MG; Start 04/11/17 at 13:30 Lansoprazole 30 mg 30 mg DAILY GTB Last administered on 04/21/17 08:59; Admin Dose 30 MG; Start 04/12/17 at 09:00 Phenylephrine HCl/ Dextrose ([place]-Syneph/D5W) 500 ml @ 0 mls/hr TITRATE IV Last administered on 04/12/17 02:52; Admin Dose 75 MLS/HR; Start 04/11/17 at 16:00 Miscellaneous Information 1 ea NOTE XX ; Start 04/11/17 at 16:30 Glucose (Glutose) 15 gm Q15M PRN PO DECREASED GLUCOSE; Start 04/11/17 at 16:30 Glucose (Glutose) 22.5 gm Q15M PRN PO DECREASED GLUCOSE; Start 04/11/17 at 16: 30 Dextrose (D50w Syringe) 25 ml Q15M PRN IV DECREASED GLUCOSE Last administered on 04/12/17 23:56; Admin Dose 25 ML; Start 04/11/17 at 16:30 Dextrose (D50w Syringe) 50 ml Q15M PRN IV DECREASED GLUCOSE; Start 04/11/17 at 16:30 Glucagon (Glucagen) 1 mg Q15M PRN IM DECREASED GLUCOSE; Start 04/11/17 at 16:30 Glucose 15 gm 15 gm Q15M PRN BUCCAL DECREASED GLUCOSE; Start 04/11/17 at 16:30 Midazolam HCl 50 ml @ 1 mls/hr TITRATE IV Last administered on 04/13/17 04:30; Admin Dose 2 MLS/HR; Start 04/11/17 at 23:30 Fentanyl (Sublimaze) 100 ml @ 0.5 mls/hr TITRATE IV Last administered on 02:48; Admin Dose 0.5 MLS/HR; Start 04/12/17 at 09:30 Metoclopramide HCl (Reglan) 10 mg Q6 IV Last administered on 04/21/17 05:28; Admin Dose 10 MG; Start 04/12/17 at 18:00 Insulin Aspart (Novolog Insulin Pen) NOVOLOG *MILD* ALGORI... Q6H SC Last administered on 04/20/17 00:34; Admin Dose 1 UNIT; Start 04/15/17 at 00:00 Furosemide (Lasix) 20 mg DAILY IV Last administered on 04/21/17 09:00; Admin Dose 20 MG; Start 04/16/17 at 09:00 Metronidazole (Flagyl) 500 mg Q8 NGT Last administered on 04/21/17 05:28; Admin Dose 500 MG; Start 04/15/17 at 14:00 IV Flush 10 ml 10 ml PRN PRN IV FLUSH LINE; Start 04/15/17 at 13:00 Ciprofloxacin/ Dextrose (Cipro Ivpb) 200 ml @ 200 mls/hr Q12 IVPB Last administered on 04/21/17 09:10; Admin Dose 200 MLS/HR; Start 04/16/17 at 21:00 Hydrocortisone 25 mg 25 mg TID IV Last administered on 04/21/17 08:59; Admin Dose 25 MG; Start 04/16/17 at 13:00 Meropenem 100 ml @ 200 mls/hr Q12 IVPB Last administered on 04/21/17 09:13; Admin Dose 200 MLS/HR; Start 04/16/17 at 21:00 Vancomycin HCl/ Sodium Chloride (Vancocin/NS) 150 ml @ 75 mls/hr Q36H IVPB Last administered on 04/20/17 00:34; Admin Dose 75 MLS/HR; Start 04/17/17 at 01: 00 Amiodarone HCl (Cordarone) 200 mg BID GTB Last administered on 04/21/17 08:59 ; Admin Dose 200 MG; Start 04/16/17 at 13:00 Diltiazem HCl (Cardizem Iv) 5 mg Q1H PRN IV AFIB GREATER THAN 110 Last administered on 04/17/17 16:41; Admin Dose 5 MG; Start 04/16/17 at 13:00 Enoxaparin Sodium (Lovenox) 40 mg HS SC Last administered on 04/17/17 20:38; Admin Dose 40 MG; Start 04/17/17 at 21:00; Status Future Hold Heparin Sodium (Porcine) (Heparin (5000 Units/0.5 ml)) 5,000 unit BID SC Last administered on 04/21/17 09:00; Admin Dose 5,000 UNIT; Start 04/18/17 at 16:22 Acetaminophen/ Hydrocodone Bitart ([place] (5/325)) 2 tab Q4H PRN NGT MODERATE PAIN LEVEL 4-6 Last administered on 04/20/17 01:47; Admin Dose 2 TAB; Start 04/18 at 17:30 Citalopram Hydrobromide (Celexa) 20 mg DAILY NGT Last administered on 08:58; Admin Dose 20 MG; Start 04/19/17 at 09:00 Hydralazine HCl (Apresoline) 20 mg Q6H PRN IV sbp ABOVE 160 Last administered on 04/20/17 12:09; Admin Dose 20 MG; Start 04/18/17 at 18:30 Acetaminophen/ Hydrocodone Bitart 1 tab 1 tab Q6H PRN GTB PAIN Last administered on 04/21/17 08:59; Admin Dose 1 TAB; Start 04/19/17 at 11:00 Caspofungin/ Sodium Chloride (Cancidas/NS) 250 ml @ 250 mls/hr Q24H IV ; Start 04/21/17 at 10:00 Miscellaneous Information (*Rx Drug Level Order Reminder*) VANCOMYCIN TROUGH AT 1200 ONCE ONCE XX ; Start 04/21/17 at 12:00; Stop 04/21/17 at 12:01 NINA MACIEL DO Apr 21, 2017 09:26
[2017-04-21] MEDS: CASPOFUNGIN 50 MG in NS 250 ML IV SCH (10:51)
--- NOTE | 2017-04-21 12:21 | CONS ---
Date/Time of Note Date/Time of Note DATE: 04/21/17 TIME: 12:19 Assessment/Plan Assessment/Plan Chief Complaint/Hosp Course No acute events overnight, patient remains on BiPAP, looks comfortable Temperature 97.6 pulse 110 respirations 30 blood pressure 150/72 saturation 98% Laboratory data: WBC 34.7 H&H 9.2 and 29 platelets 394 neutrophils 91.8, no bands Microbiology: Repeat blood and urine culture on April 20 remain negative Sputum culture on admission grew multidrug-resistant pseudomonas aeruginosa, Klebsiella ESBL, Ramonita glabrata Antibiotics: Cancidas vancomycin ciprofloxacin meropenem Flagyl Indwelling's right upper extremity PICC line Latif Physical examination: Well-developed fragile chronically ill-appearing elderly woman who is in no distress. Head atraumatic, normocephalic sclera nonicteric. Neck is supple. Chest rise symmetrical breath sounds diminished bases. Abdomen soft, bowel tones present. Extremities with bilateral edema. Assessment: 1. Severe sepsis, status post shock 2. Acute on chronic respiratory failure likely secondary to aspiration event 3. Healthcare associated pneumonia 4. Worsening leukocytosis, patient had been on Solu-Cortef since admission 5. Diarrhea with a history of C. difficile colitis, on empiric Flagyl 6. 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 Gallstones ==> no evidence for cholecystitis per repeat abdominal ultrasound 10. Resolving encephalopathy Plan: Remains unchanged, continue antibiotics, steroids taper, follow pulmonary recommendations Discussed with RN Problems: Consultation Date/Type/Reason Admit Date/Time Apr 11, 2017 at 11:28 Initial Consult Date 04/12/17 Type of Consultation: ID Referring Provider: NINA MACIEL DO Exam/Review of Systems Vital Signs Vitals Vital Signs Date Time Temp Pulse Resp B/P Pulse Ox O2 Delivery O2 Flow Rate FiO2 04/21/17 09:20 100 55 04/21/17 08:00 97.6 110 30 150/72 BIPAP 04/18/17 22:00 3.0 Intake and Output 04/20/17 04/20/17 04/21/17 15:00 23:00 07:00 Intake Total 830 ml 360 ml 50 ml Output Total 465 ml 380 ml 450 ml Balance 365 ml -20 ml -400 ml Results Result Diagram: 04/21/17 0440 04/21/17 0445 Results 24 hrs Laboratory Tests Test 04/20/17 13:00 04/20/17 17:34 04/20/17 23:52 04/21/17 04:40 Blood Gas Specimen Source Blood arterial Arterial Blood Date Drawn 04/20/2017 1:15:32 PM Arterial Blood pH (Temp corrected) 7.293 *L Arterial Blood pCO2 (Temp correct) 43.1 Arterial Blood pO2 (Temp corrected) 67.7 L Arterial Blood HCO3 20.4 L Arterial Blood Base Excess -5.8 L Arterial Blood Oxygen Saturation 92.6 L Jonn Test ACCEPTAB Arterial Blood Gas Puncture Site Right Radial Arterial Blood Carboxyhemoglobin 0.3 Arterial Blood Methemoglobin 0.3 Blood Gas A-a O2 Differential 167.9 H Oxyhemoglobin Percent 92.0 L Total Hemoglobin 11.1 L Blood Gas Temperature 37.0 Blood Gas Respiration Rate 30.0 Blood Gas Actual Respiration Rate 31 Blood Gas Modality MASK - BIPAP FiO2 40.0 Blood Gas IPAP/EPAP Ratio 18/5 Blood Gas Critical Value Read Back ABHILASH RN Blood Gas Notified Whom CW Blood Gas Notified Time 04/20/2017 1:29:52 PM Bedside Glucose 128 112 White Blood Count 34.7 #H Red Blood Count 2.74 L Hemoglobin 9.2 L Hematocrit 29.0 L Mean Corpuscular Volume 105.8 H Mean Corpuscular Hemoglobin 33.6 H Mean Corpuscular Hemoglobin Concent 31.7 L Red Cell Distribution Width 15.3 H Platelet Count 394 Mean Platelet Volume 11.1 H Neutrophils % 91.8 H Lymphocytes % 1.7 L Monocytes % 2.9 Eosinophils % 0.0 Basophils % 0.2 Nucleated Red Blood Cells % 0.0 Neutrophils # 31.9 H Lymphocytes # 0.6 L Monocytes # 1.0 H Eosinophils # 0.0 Basophils # 0.1 Nucleated Red Blood Cells # 0.0 Test 04/21/17 04:45 04/21/17 05:00 04/21/17 05:30 Sodium Level 144 Potassium Level 3.7 Chloride Level 110 Carbon Dioxide Level 23 Anion Gap 15 Blood Urea Nitrogen 58 H Creatinine 1.23 H Glucose Level 97 Lactic Acid Level 0.8 Calcium Level 8.7 Phosphorus Level 5.7 H Magnesium Level 2.1 Total Bilirubin 0.0 L Direct Bilirubin 0.00 Indirect Bilirubin 0.0 Aspartate Amino Transf (AST/SGOT) 26 Alanine Aminotransferase (ALT/SGPT) 59 Alkaline Phosphatase 111 Total Protein 5.2 #L Albumin 2.8 L Globulin 2.40 Albumin/Globulin Ratio 1.16 Blood Gas Specimen Source Blood arterial Arterial Blood Date Drawn 04/21/2017 4:48:43 AM Arterial Blood pH (Temp corrected) 7.311 L Arterial Blood pCO2 (Temp correct) 45.2 H Arterial Blood pO2 (Temp corrected) 122.4 H Arterial Blood HCO3 22.3 Arterial Blood Base Excess -3.9 L Arterial Blood Oxygen Saturation 98.0 Jonn Test ACCEPTAB Arterial Blood Gas Puncture Site Right Radial Arterial Blood Carboxyhemoglobin 0.3 Arterial Blood Methemoglobin 0.4 Blood Gas A-a O2 Differential 255.7 H Oxyhemoglobin Percent 97.3 Total Hemoglobin 11.9 L Blood Gas Temperature 37.0 Blood Gas Respiration Rate 30.0 Blood Gas Actual Respiration Rate 31 Blood Gas Modality BIPAP - S/T FiO2 60.0 Blood Gas Pressure Support 13 Blood Gas IPAP/EPAP Ratio 18/5 Blood Gas Notified Whom RTR Blood Gas Notified Time 04/21/2017 5:40:58 AM Bedside Glucose 108 Medications Medications Current Medications Norepinephrine/ Dextrose (Levophed/D5W) 500 ml @ 0 mls/hr TITRATE IV Last administered on 04/14/17 10:24; Admin Dose 18.75 MLS/HR; Start 04/11/17 at 12:30 Aspirin (Aspirin) 325 mg DAILY NGT Last administered on 04/21/17 08:58; Admin Dose 325 MG; Start 04/12/17 at 09:00 Metoprolol Tartrate (Lopressor) 25 mg BID NGT Last administered on 04/21/17 08 :59; Admin Dose 25 MG; Start 04/11/17 at 21:00 Metoprolol Tartrate (Lopressor) 5 mg Q4H PRN IV HR>110 Hold SBP<110 Last administered on 04/20/17 17:36; Admin Dose 5 MG; Start 04/11/17 at 13:30 Lansoprazole 30 mg 30 mg DAILY GTB Last administered on 04/21/17 08:59; Admin Dose 30 MG; Start 04/12/17 at 09:00 Phenylephrine HCl/ Dextrose ([place]-Syneph/D5W) 500 ml @ 0 mls/hr TITRATE IV Last administered on 04/12/17 02:52; Admin Dose 75 MLS/HR; Start 04/11/17 at 16:00 Miscellaneous Information 1 ea NOTE XX ; Start 04/11/17 at 16:30 Glucose (Glutose) 15 gm Q15M PRN PO DECREASED GLUCOSE; Start 04/11/17 at 16:30 Glucose (Glutose) 22.5 gm Q15M PRN PO DECREASED GLUCOSE; Start 04/11/17 at 16: 30 Dextrose (D50w Syringe) 25 ml Q15M PRN IV DECREASED GLUCOSE Last administered on 04/12/17 23:56; Admin Dose 25 ML; Start 04/11/17 at 16:30 Dextrose (D50w Syringe) 50 ml Q15M PRN IV DECREASED GLUCOSE; Start 04/11/17 at 16:30 Glucagon (Glucagen) 1 mg Q15M PRN IM DECREASED GLUCOSE; Start 04/11/17 at 16:30 Glucose 15 gm 15 gm Q15M PRN BUCCAL DECREASED GLUCOSE; Start 04/11/17 at 16:30 Midazolam HCl 50 ml @ 1 mls/hr TITRATE IV Last administered on 04/13/17 04:30; Admin Dose 2 MLS/HR; Start 04/11/17 at 23:30 Fentanyl (Sublimaze) 100 ml @ 0.5 mls/hr TITRATE IV Last administered on 02:48; Admin Dose 0.5 MLS/HR; Start 04/12/17 at 09:30 Metoclopramide HCl (Reglan) 10 mg Q6 IV Last administered on 04/21/17 05:28; Admin Dose 10 MG; Start 04/12/17 at 18:00 Insulin Aspart (Novolog Insulin Pen) NOVOLOG *MILD* ALGORI... Q6H SC Last administered on 04/20/17 00:34; Admin Dose 1 UNIT; Start 04/15/17 at 00:00 Metronidazole (Flagyl) 500 mg Q8 NGT Last administered on 04/21/17 05:28; Admin Dose 500 MG; Start 04/15/17 at 14:00 IV Flush 10 ml 10 ml PRN PRN IV FLUSH LINE; Start 04/15/17 at 13:00 Ciprofloxacin/ Dextrose (Cipro Ivpb) 200 ml @ 200 mls/hr Q12 IVPB Last administered on 04/21/17 09:10; Admin Dose 200 MLS/HR; Start 04/16/17 at 21:00 Hydrocortisone 25 mg 25 mg TID IV Last administered on 04/21/17 08:59; Admin Dose 25 MG; Start 04/16/17 at 13:00 Meropenem 100 ml @ 200 mls/hr Q12 IVPB Last administered on 04/21/17 09:13; Admin Dose 200 MLS/HR; Start 04/16/17 at 21:00 Vancomycin HCl/ Sodium Chloride (Vancocin/NS) 150 ml @ 75 mls/hr Q36H IVPB Last administered on 04/20/17 00:34; Admin Dose 75 MLS/HR; Start 04/17/17 at 01: 00 Amiodarone HCl (Cordarone) 200 mg BID GTB Last administered on 04/21/17 08:59 ; Admin Dose 200 MG; Start 04/16/17 at 13:00 Diltiazem HCl (Cardizem Iv) 5 mg Q1H PRN IV AFIB GREATER THAN 110 Last administered on 04/17/17 16:41; Admin Dose 5 MG; Start 04/16/17 at 13:00 Enoxaparin Sodium (Lovenox) 40 mg HS SC Last administered on 04/17/17 20:38; Admin Dose 40 MG; Start 04/17/17 at 21:00; Status Future Hold Heparin Sodium (Porcine) (Heparin (5000 Units/0.5 ml)) 5,000 unit BID SC Last administered on 04/21/17 09:00; Admin Dose 5,000 UNIT; Start 04/18/17 at 16:22 Acetaminophen/ Hydrocodone Bitart ([place] (5/325)) 2 tab Q4H PRN NGT MODERATE PAIN LEVEL 4-6 Last administered on 04/20/17 01:47; Admin Dose 2 TAB; Start 04/18 at 17:30 Citalopram Hydrobromide (Celexa) 20 mg DAILY NGT Last administered on 08:58; Admin Dose 20 MG; Start 04/19/17 at 09:00 Hydralazine HCl (Apresoline) 20 mg Q6H PRN IV sbp ABOVE 160 Last administered on 04/20/17 12:09; Admin Dose 20 MG; Start 04/18/17 at 18:30 Acetaminophen/ Hydrocodone Bitart 1 tab 1 tab Q6H PRN GTB PAIN Last administered on 04/21/17 08:59; Admin Dose 1 TAB; Start 04/19/17 at 11:00 Caspofungin/ Sodium Chloride (Cancidas/NS) 250 ml @ 250 mls/hr Q24H IV Last administered on 04/21/17 10:51; Admin Dose 250 MLS/HR; Start 04/21/17 at 10:00 LORETO MCKEON BROKE BEATER Apr 21, 2017 12:20
--- NOTE | 2017-04-21 12:38 | CONS ---
Date/Time of Note Date/Time of Note DATE: 04/21/17 TIME: 12:35 Consult Date/Type/Reason Admit Date/Time Apr 11, 2017 at 11:28 Initial Consult Date 04/12/17 Type of Consultation: Pulmonary Ordering Provider: NINA MACIEL DO Subjective Patient remains mostly BiPAP dependent, she is awake alert significant neuromuscular weakness Objective Vital Signs Date Time Temp Pulse Resp B/P Pulse Ox O2 Delivery O2 Flow Rate FiO2 04/21/17 12:00 98 4.0 04/21/17 09:20 55 04/21/17 08:00 97.6 110 30 150/72 BIPAP Intake and Output 04/20/17 04/20/17 04/21/17 15:00 23:00 07:00 Intake Total 830 ml 360 ml 50 ml Output Total 465 ml 380 ml 450 ml Balance 365 ml -20 ml -400 ml Exam GENERAL: Chronically ill-appearing elderly lady on BiPAP VITAL SIGNS: per chart NECK: Supple. No JVD or lymphadenopathy. Stoma site has dressing in place CARDIAC EXAM: S1, S2. No added sounds or murmurs. CHEST: Diminished air entry bilaterally poor effort ABDOMEN: Soft, nontender. No guarding or rebound. EXTREMITIES: No cyanosis, clubbing edema +2 NEUROLOGIC: Generalized weakness. Results/Medications Result Diagram: 04/21/17 0440 04/21/17 0445 Results 24 hrs Laboratory Tests Test 04/20/17 13:00 04/20/17 17:34 04/20/17 23:52 04/21/17 04:40 Blood Gas Specimen Source Blood arterial Arterial Blood Date Drawn 04/20/2017 1:15:32 PM Arterial Blood pH (Temp corrected) 7.293 *L Arterial Blood pCO2 (Temp correct) 43.1 Arterial Blood pO2 (Temp corrected) 67.7 L Arterial Blood HCO3 20.4 L Arterial Blood Base Excess -5.8 L Arterial Blood Oxygen Saturation 92.6 L Jonn Test ACCEPTAB Arterial Blood Gas Puncture Site Right Radial Arterial Blood Carboxyhemoglobin 0.3 Arterial Blood Methemoglobin 0.3 Blood Gas A-a O2 Differential 167.9 H Oxyhemoglobin Percent 92.0 L Total Hemoglobin 11.1 L Blood Gas Temperature 37.0 Blood Gas Respiration Rate 30.0 Blood Gas Actual Respiration Rate 31 Blood Gas Modality MASK - BIPAP FiO2 40.0 Blood Gas IPAP/EPAP Ratio 18/5 Blood Gas Critical Value Read Back NaomiNereydaALBERTOMAYELA RN Blood Gas Notified Whom CW Blood Gas Notified Time 04/20/2017 1:29:52 PM Bedside Glucose 128 112 White Blood Count 34.7 #H Red Blood Count 2.74 L Hemoglobin 9.2 L Hematocrit 29.0 L Mean Corpuscular Volume 105.8 H Mean Corpuscular Hemoglobin 33.6 H Mean Corpuscular Hemoglobin Concent 31.7 L Red Cell Distribution Width 15.3 H Platelet Count 394 Mean Platelet Volume 11.1 H Neutrophils % 91.8 H Lymphocytes % 1.7 L Monocytes % 2.9 Eosinophils % 0.0 Basophils % 0.2 Nucleated Red Blood Cells % 0.0 Neutrophils # 31.9 H Lymphocytes # 0.6 L Monocytes # 1.0 H Eosinophils # 0.0 Basophils # 0.1 Nucleated Red Blood Cells # 0.0 Test 04/21/17 04:45 04/21/17 05:00 04/21/17 05:30 Sodium Level 144 Potassium Level 3.7 Chloride Level 110 Carbon Dioxide Level 23 Anion Gap 15 Blood Urea Nitrogen 58 H Creatinine 1.23 H Glucose Level 97 Lactic Acid Level 0.8 Calcium Level 8.7 Phosphorus Level 5.7 H Magnesium Level 2.1 Total Bilirubin 0.0 L Direct Bilirubin 0.00 Indirect Bilirubin 0.0 Aspartate Amino Transf (AST/SGOT) 26 Alanine Aminotransferase (ALT/SGPT) 59 Alkaline Phosphatase 111 Total Protein 5.2 #L Albumin 2.8 L Globulin 2.40 Albumin/Globulin Ratio 1.16 Blood Gas Specimen Source Blood arterial Arterial Blood Date Drawn 04/21/2017 4:48:43 AM Arterial Blood pH (Temp corrected) 7.311 L Arterial Blood pCO2 (Temp correct) 45.2 H Arterial Blood pO2 (Temp corrected) 122.4 H Arterial Blood HCO3 22.3 Arterial Blood Base Excess -3.9 L Arterial Blood Oxygen Saturation 98.0 Jonn Test ACCEPTAB Arterial Blood Gas Puncture Site Right Radial Arterial Blood Carboxyhemoglobin 0.3 Arterial Blood Methemoglobin 0.4 Blood Gas A-a O2 Differential 255.7 H Oxyhemoglobin Percent 97.3 Total Hemoglobin 11.9 L Blood Gas Temperature 37.0 Blood Gas Respiration Rate 30.0 Blood Gas Actual Respiration Rate 31 Blood Gas Modality BIPAP - S/T FiO2 60.0 Blood Gas Pressure Support 13 Blood Gas IPAP/EPAP Ratio 27/02 Blood Gas Notified Whom RTR Blood Gas Notified Time 04/21/2017 5:40:58 AM Bedside Glucose 108 Medications Current Medications Norepinephrine/ Dextrose (Levophed/D5W) 500 ml @ 0 mls/hr TITRATE IV Last administered on 04/14/17 10:24; Admin Dose 18.75 MLS/HR; Start 04/11/17 at 12:30 Aspirin (Aspirin) 325 mg DAILY NGT Last administered on 04/21/17 08:58; Admin Dose 325 MG; Start 04/12/17 at 09:00 Metoprolol Tartrate (Lopressor) 25 mg BID NGT Last administered on 04/21/17 08 :59; Admin Dose 25 MG; Start 04/11/17 at 21:00 Metoprolol Tartrate (Lopressor) 5 mg Q4H PRN IV HR>110 Hold SBP<110 Last administered on 04/20/17 17:36; Admin Dose 5 MG; Start 04/11/17 at 13:30 Lansoprazole 30 mg 30 mg DAILY GTB Last administered on 04/21/17 08:59; Admin Dose 30 MG; Start 04/12/17 at 09:00 Phenylephrine HCl/ Dextrose ([place]-Syneph/D5W) 500 ml @ 0 mls/hr TITRATE IV Last administered on 04/12/17 02:52; Admin Dose 75 MLS/HR; Start 04/11/17 at 16:00 Miscellaneous Information 1 ea NOTE XX ; Start 04/11/17 at 16:30 Glucose (Glutose) 15 gm Q15M PRN PO DECREASED GLUCOSE; Start 04/11/17 at 16:30 Glucose (Glutose) 22.5 gm Q15M PRN PO DECREASED GLUCOSE; Start 04/11/17 at 16: 30 Dextrose (D50w Syringe) 25 ml Q15M PRN IV DECREASED GLUCOSE Last administered on 04/12/17 23:56; Admin Dose 25 ML; Start 04/11/17 at 16:30 Dextrose (D50w Syringe) 50 ml Q15M PRN IV DECREASED GLUCOSE; Start 04/11/17 at 16:30 Glucagon (Glucagen) 1 mg Q15M PRN IM DECREASED GLUCOSE; Start 04/11/17 at 16:30 Glucose 15 gm 15 gm Q15M PRN BUCCAL DECREASED GLUCOSE; Start 04/11/17 at 16:30 Midazolam HCl 50 ml @ 1 mls/hr TITRATE IV Last administered on 04/13/17 04:30; Admin Dose 2 MLS/HR; Start 04/11/17 at 23:30 Fentanyl (Sublimaze) 100 ml @ 0.5 mls/hr TITRATE IV Last administered on 02:48; Admin Dose 0.5 MLS/HR; Start 04/12/17 at 09:30 Metoclopramide HCl (Reglan) 10 mg Q6 IV Last administered on 04/21/17 05:28; Admin Dose 10 MG; Start 04/12/17 at 18:00 Insulin Aspart (Novolog Insulin Pen) NOVOLOG *MILD* ALGORI... Q6H SC Last administered on 04/20/17 00:34; Admin Dose 1 UNIT; Start 04/15/17 at 00:00 Metronidazole (Flagyl) 500 mg Q8 NGT Last administered on 04/21/17 05:28; Admin Dose 500 MG; Start 04/15/17 at 14:00 IV Flush 10 ml 10 ml PRN PRN IV FLUSH LINE; Start 04/15/17 at 13:00 Ciprofloxacin/ Dextrose (Cipro Ivpb) 200 ml @ 200 mls/hr Q12 IVPB Last administered on 04/21/17 09:10; Admin Dose 200 MLS/HR; Start 04/16/17 at 21:00 Hydrocortisone 25 mg 25 mg TID IV Last administered on 04/21/17 08:59; Admin Dose 25 MG; Start 04/16/17 at 13:00 Meropenem 100 ml @ 200 mls/hr Q12 IVPB Last administered on 04/21/17 09:13; Admin Dose 200 MLS/HR; Start 04/16/17 at 21:00 Vancomycin HCl/ Sodium Chloride (Vancocin/NS) 150 ml @ 75 mls/hr Q36H IVPB Last administered on 04/20/17 00:34; Admin Dose 75 MLS/HR; Start 04/17/17 at 01: 00 Amiodarone HCl (Cordarone) 200 mg BID GTB Last administered on 04/21/17 08:59 ; Admin Dose 200 MG; Start 04/16/17 at 13:00 Diltiazem HCl (Cardizem Iv) 5 mg Q1H PRN IV AFIB GREATER THAN 110 Last administered on 04/17/17 16:41; Admin Dose 5 MG; Start 04/16/17 at 13:00 Enoxaparin Sodium (Lovenox) 40 mg HS SC Last administered on 04/17/17 20:38; Admin Dose 40 MG; Start 04/17/17 at 21:00; Status Future Hold Heparin Sodium (Porcine) (Heparin (5000 Units/0.5 ml)) 5,000 unit BID SC Last administered on 04/21/17 09:00; Admin Dose 5,000 UNIT; Start 04/18/17 at 16:22 Acetaminophen/ Hydrocodone Bitart ([place] (5/325)) 2 tab Q4H PRN NGT MODERATE PAIN LEVEL 4-6 Last administered on 04/20/17 01:47; Admin Dose 2 TAB; Start 04/18 at 17:30 Citalopram Hydrobromide (Celexa) 20 mg DAILY NGT Last administered on 08:58; Admin Dose 20 MG; Start 04/19/17 at 09:00 Hydralazine HCl (Apresoline) 20 mg Q6H PRN IV sbp ABOVE 160 Last administered on 04/20/17 12:09; Admin Dose 20 MG; Start 04/18/17 at 18:30 Acetaminophen/ Hydrocodone Bitart 1 tab 1 tab Q6H PRN GTB PAIN Last administered on 04/21/17 08:59; Admin Dose 1 TAB; Start 04/19/17 at 11:00 Caspofungin/ Sodium Chloride ([place]anc[place]/NS) 250 ml @ 250 mls/hr Q24H IV Last administered on 04/21/17 10:51; Admin Dose 250 MLS/HR; Start 04/21/17 at 10:00 Assessment/Plan Chief Complaint/Hosp Course IMP:1. Status post septic Shock--likely due to multilobar aspiration pneumonia vs. HCAP possibly secondary to acute cholecystitis also 2. Multifocal pneumonia aspiration vs.HCAP 3. Hypercapnic Respiratory Failure--likely due to critical illness myopathy/ neuropathy 4. Status post lactic acidosis. Persistent leukocytosis, 5. Demand Ischemia 6. Cholecystitis, pending percutaneous drainage 7. Encephalopathy toxic metabolic 8. Leukocytosis RECS: 1. Continue BiPAP at current settings patient at risk of reintubation. 2. Trial of BiPAP if tolerated 3. ABG: Monitor PCO2 4. Tube feeding 20 cc an hour Critical care time 40 minutes. Case d/w RN and patient's Problems: DARWIN CRAWFORD MD, [facility] Apr 21, 2017 12:38
--- NOTE | 2017-04-21 17:08 | QN ---
Documentation Comment I was called out of the emergency department to room 106 for a CODE BLUE event. The patient was receiving high-quality CPR and being bagged by respiratory therapy. I immediately took over as the CODE BLUE leader and ran the code. Please see the code sheet for full details. The patient received intubation, epinephrine 2, and bicarbonate. The final results of the CODE BLUE was return of spontaneous circulation. HPI: Please note the history and physical exam is limited as the patient is receiving CPR at this time. The patient is in full cardiac arrest. Physical exam: The patient is being bagged by respiratory therapy. There is no movement. GCS is 3. Endotracheal Intubation by me: P patient was being bagged during a code. I anticipate a difficult airway as the patient is previous tongue cancer RSI: Performed w/o complication or hypoxic events. Medications as ordered. Blade: MAC 4 Glidescope ET Tube: 7.5 cm Depth: 23 cm at the lip Intubation confirmed by colorimetric CO2, equal breath sounds, quiet over the stomach. Chest x-ray pending SHANON PEREZ MD Apr 21, 2017 17:08
[2017-04-21] MEDS ORDERED: NORepinephrine 8MG/250 ML (PMX 0 ML ONE (18:17)
[2017-04-21] MEDS: VANCOMYCIN 500MG/NS (PMX) 100 ML IVPB SCH (18:24)
--- NOTE | 2017-04-21 19:29 | PN ---
Date/Time of Note Date/Time of Note DATE: 04/21/17 TIME: 19:26 Assessment/Plan VTE Prophylaxis VTE Prophylaxis Intervention: other Lines/Catheters IV Catheter Type (from Nrsg): PICC Line Central line still needed: Yes Urinary Cath still in place: Yes Reason Cath still needed: other (indicate) Assessment/Plan Chief Complaint/Hosp Course 1. acute on chronic hypoxemic respiratory failure: s/p re-intubation on vent. 2. NSTEMI: due to demand ischemia. 3. CHF: due to diastolic heart failure 4. moderate 5. Arrhythmia and P afib, frequent PVC. 6. ANEMIA 7. pneumonia, severe leukocytosis now. 8. s/p sepsis and shock off of levophed drip now. cont ASA vent support and abx as per PULM Team. correct lytes prn cont ICU care. betablocker as long as BP is stable and is able to tolerate it. thyroid supplement . will closely monitor in ICU. s/p amiodarone drip. will cont po amiodarone. replace lytes including K and Mg prn . Problems: Subjective 24 Hr Interval Summary Free Text/Dictation CARDIOLOGY FOLLOW UP: D/W staff , d/w . events noted rhythm was reviewed. pt remains in NSR but with frequent PAC, PVC. no more Afib Pt with increasing resp failure on BIPAP and became unresponsive and PEA and had to be resuscitated and intubated again. pt was initially hypotensive but stable now Objective: General: Intubated on vent in ICU HEENT: NC/AT. eyes are closed. . NECK: NO JVD. no stridor. s/p previous trach with dressing covering it. CV: RRR. systolic ejection murmur; no gallop or rubs. PULM: no wheezing or rhonchi. GI: SOFT, NT, ND, no rebound or guarding s/p PEG Extremity: trace B/L LE edema. no clubbing. neuro: opens her eye and follows command Psych: calm rectal: deferred Derm: multiple echymosis Exam/Review of Systems Vital Signs Vitals Vital Signs Date Time Temp Pulse Resp B/P Pulse Ox O2 Delivery O2 Flow Rate FiO2 04/21/17 18:45 106 20 109/64 100 Mechanical Ventilator 04/21/17 17:15 97.3 04/21/17 16:50 100 04/21/17 16:12 6.0 Intake and Output 04/20/17 04/20/17 04/21/17 15:00 23:00 07:00 Intake Total 830 ml 360 ml 50 ml Output Total 465 ml 380 ml 450 ml Balance 365 ml -20 ml -400 ml Results Result Diagram: 04/21/17 0440 04/21/17 0445 Results 24 hrs Laboratory Tests Test 04/20/17 23:52 04/21/17 04:40 04/21/17 04:45 04/21/17 05:00 Bedside Glucose 112 White Blood Count 34.7 #H Red Blood Count 2.74 L Hemoglobin 9.2 L Hematocrit 29.0 L Mean Corpuscular Volume 105.8 H Mean Corpuscular Hemoglobin 33.6 H Mean Corpuscular Hemoglobin Concent 31.7 L Red Cell Distribution Width 15.3 H Platelet Count 394 Mean Platelet Volume 11.1 H Neutrophils % 91.8 H Lymphocytes % 1.7 L Monocytes % 2.9 Eosinophils % 0.0 Basophils % 0.2 Nucleated Red Blood Cells % 0.0 Neutrophils # 31.9 H Lymphocytes # 0.6 L Monocytes # 1.0 H Eosinophils # 0.0 Basophils # 0.1 Nucleated Red Blood Cells # 0.0 Sodium Level 144 Potassium Level 3.7 Chloride Level 110 Carbon Dioxide Level 23 Anion Gap 15 Blood Urea Nitrogen 58 H Creatinine 1.23 H Glucose Level 97 Lactic Acid Level 0.8 Calcium Level 8.7 Phosphorus Level 5.7 H Magnesium Level 2.1 Total Bilirubin 0.0 L Direct Bilirubin 0.00 Indirect Bilirubin 0.0 Aspartate Amino Transf (AST/SGOT) 26 Alanine Aminotransferase (ALT/SGPT) 59 Alkaline Phosphatase 111 Total Protein 5.2 #L Albumin 2.8 L Globulin 2.40 Albumin/Globulin Ratio 1.16 Blood Gas Specimen Source Blood arterial Arterial Blood Date Drawn 04/21/2017 4:48:43 AM Arterial Blood pH (Temp corrected) 7.311 L Arterial Blood pCO2 (Temp correct) 45.2 H Arterial Blood pO2 (Temp corrected) 122.4 H Arterial Blood HCO3 22.3 Arterial Blood Base Excess -3.9 L Arterial Blood Oxygen Saturation 98.0 Jonn Test ACCEPTAB Arterial Blood Gas Puncture Site Right Radial Arterial Blood Carboxyhemoglobin 0.3 Arterial Blood Methemoglobin 0.4 Blood Gas A-a O2 Differential 255.7 H Oxyhemoglobin Percent 97.3 Total Hemoglobin 11.9 L Blood Gas Temperature 37.0 Blood Gas Respiration Rate 30.0 Blood Gas Actual Respiration Rate 31 Blood Gas Modality BIPAP - S/T FiO2 60.0 Blood Gas Pressure Support 13 Blood Gas IPAP/EPAP Ratio 18/5 Blood Gas Notified Whom RTR Blood Gas Notified Time 04/21/2017 5:40:58 AM Test 04/21/17 05:30 04/21/17 12:15 04/21/17 13:35 04/21/17 18:37 Bedside Glucose 108 115 150 Vancomycin Level Trough 17.1 Medications Medications Current Medications Norepinephrine/ Dextrose (Levophed/D5W) 500 ml @ 0 mls/hr TITRATE IV Last administered on 04/14/17 10:24; Admin Dose 18.75 MLS/HR; Start 04/11/17 at 12:30 Aspirin (Aspirin) 325 mg DAILY NGT Last administered on 04/21/17 08:58; Admin Dose 325 MG; Start 04/12/17 at 09:00 Metoprolol Tartrate (Lopressor) 25 mg BID NGT Last administered on 04/21/17 08 :59; Admin Dose 25 MG; Start 04/11/17 at 21:00 Metoprolol Tartrate (Lopressor) 5 mg Q4H PRN IV HR>110 Hold SBP<110 Last administered on 04/20/17 17:36; Admin Dose 5 MG; Start 04/11/17 at 13:30 Lansoprazole 30 mg 30 mg DAILY GTB Last administered on 04/21/17 08:59; Admin Dose 30 MG; Start 04/12/17 at 09:00 Phenylephrine HCl/ Dextrose ([place]uy-Syneph/D5W) 500 ml @ 0 mls/hr TITRATE IV Last administered on 04/12/17 02:52; Admin Dose 75 MLS/HR; Start 04/11/17 at 16:00 Miscellaneous Information 1 ea NOTE XX ; Start 04/11/17 at 16:30 Glucose (Glutose) 15 gm Q15M PRN PO DECREASED GLUCOSE; Start 04/11/17 at 16:30 Glucose (Glutose) 22.5 gm Q15M PRN PO DECREASED GLUCOSE; Start 04/11/17 at 16: 30 Dextrose (D50w Syringe) 25 ml Q15M PRN IV DECREASED GLUCOSE Last administered on 04/12/17 23:56; Admin Dose 25 ML; Start 04/11/17 at 16:30 Dextrose (D50w Syringe) 50 ml Q15M PRN IV DECREASED GLUCOSE; Start 04/11/17 at 16:30 Glucagon (Glucagen) 1 mg Q15M PRN IM DECREASED GLUCOSE; Start 04/11/17 at 16:30 Glucose 15 gm 15 gm Q15M PRN BUCCAL DECREASED GLUCOSE; Start 04/11/17 at 16:30 Midazolam HCl 50 ml @ 1 mls/hr TITRATE IV Last administered on 04/13/17 04:30; Admin Dose 2 MLS/HR; Start 04/11/17 at 23:30 Fentanyl (Sublimaze) 100 ml @ 0.5 mls/hr TITRATE IV Last administered on 02:48; Admin Dose 0.5 MLS/HR; Start 04/12/17 at 09:30 Metoclopramide HCl (Reglan) 10 mg Q6 IV Last administered on 04/21/17 18:24; Admin Dose 10 MG; Start 04/12/17 at 18:00 Insulin Aspart (Novolog Insulin Pen) NOVOLOG *MILD* ALGORI... Q6H SC Last administered on 04/21/17 18:39; Admin Dose 1 UNIT; Start 04/15/17 at 00:00 Metronidazole (Flagyl) 500 mg Q8 NGT Last administered on 04/21/17 13:30; Admin Dose 500 MG; Start 04/15/17 at 14:00 IV Flush 10 ml 10 ml PRN PRN IV FLUSH LINE; Start 04/15/17 at 13:00 Ciprofloxacin/ Dextrose (Cipro Ivpb) 200 ml @ 200 mls/hr Q12 IVPB Last administered on 04/21/17 09:10; Admin Dose 200 MLS/HR; Start 04/16/17 at 21:00 Hydrocortisone 25 mg 25 mg TID IV Last administered on 04/21/17 13:29; Admin Dose 25 MG; Start 04/16/17 at 13:00 Meropenem (Merrem 1 Gm/100 ml (Pmx)) 100 ml @ 200 mls/hr Q12 IVPB Last administered on 04/21/17 09:13; Admin Dose 200 MLS/HR; Start 04/16/17 at 21:00 Amiodarone HCl (Cordarone) 200 mg BID GTB Last administered on 04/21/17 08:59 ; Admin Dose 200 MG; Start 04/16/17 at 13:00 Diltiazem HCl (Cardizem Iv) 5 mg Q1H PRN IV AFIB GREATER THAN 110 Last administered on 04/17/17 16:41; Admin Dose 5 MG; Start 04/16/17 at 13:00 Enoxaparin Sodium (Lovenox) 40 mg HS SC Last administered on 04/17/17 20:38; Admin Dose 40 MG; Start 04/17/17 at 21:00; Status Future Hold Heparin Sodium (Porcine) (Heparin (5000 Units/0.5 ml)) 5,000 unit BID SC Last administered on 04/21/17 09:00; Admin Dose 5,000 UNIT; Start 04/18/17 at 16:22 Acetaminophen/ Hydrocodone Bitart ([place] (5/325)) 2 tab Q4H PRN NGT MODERATE PAIN LEVEL 4-6 Last administered on 04/20/17 01:47; Admin Dose 2 TAB; Start 04/18 at 17:30 Citalopram Hydrobromide (Celexa) 20 mg DAILY NGT Last administered on 08:58; Admin Dose 20 MG; Start 04/19/17 at 09:00 Hydralazine HCl (Apresoline) 20 mg Q6H PRN IV sbp ABOVE 160 Last administered on 04/20/17 12:09; Admin Dose 20 MG; Start 04/18/17 at 18:30 Acetaminophen/ Hydrocodone Bitart 1 tab 1 tab Q6H PRN GTB PAIN Last administered on 04/21/17 08:59; Admin Dose 1 TAB; Start 04/19/17 at 11:00 Caspofungin 50 mg/ Sodium Chloride 250 ml @ 250 mls/hr Q24H IV Last administered on 04/21/17 10:51; Admin Dose 250 MLS/HR; Start 04/21/17 at 10:00 Vancomycin HCl (Vancocin) 100 ml @ 100 mls/hr Q36H IVPB Last administered on 18:24; Admin Dose 100 MLS/HR; Start 7/10/17 at 17:00 FRANCISCO BLACKWOOD MD Apr 21, 2017 19:28
[2017-04-21 20:10] LABS: AADO2 Arterial 206.8 mmHg (7.0-24.0); Allen Test ACCEPTAB; Arterial COHb 0.3 % (0.0-3.0); Arterial Fraction of Oxyhgb 98.7 % (93.0-99.0); Arterial HCO3 21.6 mmol/L (22.0-26.0); Arterial MetHb 0.4 % (0.0-1.5); Arterial Total Hemglobin 9.4 g/dl (12.0-18.0); MODE VENT - AC
--- NOTE | 2017-04-21 21:51 | RADRPT ---
PROCEDURE: XR Chest. CLINICAL INDICATION: Check endotracheal tube position. TECHNIQUE: Single frontal view. COMPARISON: Prior study done earlier the same day. FINDINGS: The right arm PICC line remains in satisfactory position. There is a new endotracheal tube with the tip at the sammy. This should be retracted 1 cm. There is pulmonary edema, unchanged. The heart size is mildly enlarged. There is calcification in the aorta consistent with atherosclero sis. There are small bilateral pleural effusions, unchanged. There is no pneumothorax. IMPRESSION: 1. The endotracheal tube should be retracted approximately 1 cm as the tip is at the sammy. 2. No other change from the prior study done earlier the same day. RPTAT: QQ .Guero Guadalupe MD, MD Date Time Electronically viewed and signed by .Guero Guadalupe MD, MD on 04/21/2017 21:51 .R/
[2017-04-21] MEDS ORDERED: DEXTROSE 5%-0.9% NACL 1,000 ML IV SCH (23:00)
[2017-04-22] VITALS (36 sets, daily range): BP systolic 102–145; BP diastolic 53–74; PULSE 81–112; RESP 20–23
[2017-04-22] MEDS ORDERED: NA BICARBONATE 8.4% 50 ML SYG ONE
[2017-04-22] MEDS ORDERED: EPINEPHrine 0.1 MG/ML SYG ONE
[2017-04-22] MEDS: METOCLOPRAMIDE 10 MG INJ IV SCH ×4 (00:48→17:11)
[2017-04-22] MEDS: HYDROCODONE/APAP (5/325) TAB GTB PRN ×3 (00:49→15:29)
[2017-04-22] MEDS: INSULIN ASPART [NOVOLOG] 3 ML PEN SC SCH ×4 (00:54→17:16)
[2017-04-22 05:36] LABS: ADD SCAN DIFF NO
[2017-04-22 05:51] LABS: ABNORMAL IP MESSAGE 1; BASOPHILS % 0.2 % (0.0-2.0); HEMATOCRIT 24.1 % (37.0-47.0); HEMOGLOBIN 7.4 g/dl (12.0-16.0); LYMPHOCYTES # 0.5 10^3/ul (0.8-2.9); LYMPHOCYTES % 2.4 % (15.0-51.0); MEAN CORPUSCULAR HEMOGLOBIN 32.9 pg (29.0-33.0); MEAN CORPUSCULAR HGB CONC 30.7 g/dl (32.0-37.0); MEAN CORPUSCULAR VOLUME 107.1 fl (82.0-101.0); MEAN PLATELET VOLUME 11.4 fl (7.4-10.4); MONOCYTE # 0.9 10^3/ul (0.3-0.9); NEUTROPHIL # 19.5 10^3/ul (1.6-7.5); NEUTROPHILS % 89.9 % (39.0-77.0); PLATELET COUNT 345 10^3/UL (140-415); RED BLOOD COUNT 2.25 10^6/ul (4.20-5.40); RED CELL DISTRIBUTION WIDTH 15.3 % (11.5-14.5); WHITE BLOOD COUNT 21.7 10^3/ul (4.8-10.8)
[2017-04-22] MEDS: metroNIDAZOLE 500 MG TAB NGT SCH ×3 (06:02→21:38)
[2017-04-22] MEDS: FUROSEMIDE 20 MG INJ IV SCH ×2 (06:02→17:11)
[2017-04-22] MEDS: LEVOTHYROXINE 75 MCG TAB GTB SCH (06:02)
[2017-04-22 06:15] LABS: CALCIUM 8.1 mg/dl (8.4-10.2); CREATININE 1.4 mg/dl (0.44-1.00); MAGNESIUM 2.2 mg/dl (1.7-2.5); PHOSPHORUS 4.9 mg/dl (2.5-4.9); POTASSIUM 3.3 mmol/L (3.5-5.1)
[2017-04-22 08:05] LABS: AADO2 Arterial 105.2 mmHg (7.0-24.0); Allen Test ACCEPTAB; Arterial Base Excess -0.7 mmol/L (-3.0-3); Arterial COHb 0.3 % (0.0-3.0); Arterial Fraction of Oxyhgb 93.6 % (93.0-99.0); Arterial HCO3 22.9 mmol/L (22.0-26.0); Arterial MetHb 0.3 % (0.0-1.5); Arterial Total Hemglobin 10.3 g/dl (12.0-18.0); MODE VENT - AC
[2017-04-22] MEDS: METOPROLOL 25 MG TAB NGT SCH ×2 (09:00→20:55)
[2017-04-22] MEDS: CASPOFUNGIN 50 MG in NS 250 ML IV SCH (09:01)
[2017-04-22] MEDS: CIPROFLOXACIN 400MG/D5W 200 ML IVPB SCH ×2 (09:01→20:53)
[2017-04-22] MEDS: MEROPENEM 1 GM/100 ML (PMX) 100 ML IVPB SCH (09:01)
[2017-04-22] MEDS: AMIODARONE 200 MG TAB GTB SCH ×2 (09:02→20:55)
[2017-04-22] MEDS: LANSOPRAZOLE 30 MG CAP GTB SCH (09:02)
[2017-04-22] MEDS: ASPIRIN 325 MG TAB NGT SCH (09:02)
[2017-04-22] MEDS: HYDROCORTISONE 100 MG INJ IV SCH ×3 (09:02→20:55)
[2017-04-22] MEDS: CITALOPRAM 20 MG TAB NGT SCH (09:02)
[2017-04-22] MEDS: HEPARIN 5,000 UNIT/0.5 ML VIAL SC SCH ×2 (09:03→21:39)
--- NOTE | 2017-04-22 09:26 | RADRPT ---
PROCEDURE: XR Chest 1 View. CLINICAL INDICATION: Shortness of breath. TECHNIQUE: AP view of the chest was obtained. COMPARISON: Yesterday. FINDINGS: The heart size is within normal limits. Calcified atherosclerosis is noted in the aorta. Endotrache al tube is stable and continues to have its tip at the sammy. Right-sided PICC line is unchanged. The lungs are hyperexpanded. Interstitial prominence in both lungs is stable. Superimposed patchy potential alveolar infiltrates in both lungs are unchanged. Small right pleural effusion is stable . Osseous structures are unchanged. IMPRESSION: Calcified atherosclerosis in the aorta. Endotracheal tube that continues to have its tip at the sammy. Retraction by approximately 2.7 cm is recommended. Hyperexpanded lungs with stable diffuse interstitial prominence in both lungs. Stable superimposed potential alveolar infiltrates throughout both lungs. Stable small right pleural effusion. RPTAT: AA .Jason Rizo MD, Date Time Electronically viewed and signed by .Jason Rizo MD, on 04/22/2017 09:25 .P/
--- NOTE | 2017-04-22 09:36 | PN ---
Date/Time of Note Date/Time of Note DATE: 04/22/17 TIME: 09:33 Assessment/Plan VTE Prophylaxis VTE Prophylaxis Intervention: other Lines/Catheters IV Catheter Type (from Nrs): PICC Line Central line still needed: Yes Urinary Cath still in place: Yes Reason Cath still needed: other (indicate) Assessment/Plan Chief Complaint/Hosp Course 1. Status post code arrest -Etiology was respiratory due to hypoxemia -Patient currently stable on ventilatory support -Monitor closely 2. Nonoliguric keyonna. With previously normal baseline creatinine. Etiology is likely secondary to septic KEYONNA with possible ATN -Renal function has been stable, -Continue treatment plan. Supportive care renally dose meds avoid nephrotoxins -Follow-up renal panel - 3. Sepsis, status post shock. Etiology is likely secondary to aspiration pneumonia, -Patient currently off pressors. Remains on antibiotics - Patient's blood cultures have been reviewed. Continue current treatment plan Follow-up with infectious disease 3. Ventilator dependent respiratory failure. etiology secondary to pneumonia, CHF -Vent settings and ABG have been reviewed -Follow-up with pulmonary 4. Volume overload. Etiology likely secondary to sepsis capillary leak. Possible diastolic heart failure. -Continue Lasix 5. Elevated troponin. Possible non-STEMI type II. We will continue to monitor follow-up with cardiology 6. History of adrenal insufficiency. -Patient currently on stress steroids, -Appreciate endocrinology evaluation 7. Acute encephalopathy etiologies toxic metabolic, possible anoxic injury. Mental status is improving, patient following commands CT scan showed no acute finding Appreciate Dr. Ellis evaluation -Continue to monitor closely 8. possible acute cholecystitis -Patient's HIDA scan was positive - cholecystostomy drain was not placed due to insufficient fluid. -No plan for drain placement at this time. I discussed case with general surgery Appreciate surgery's evaluation. 9. Hypothyroidism continue Synthroid 10. Anemia. -Hemoglobin levels have declined, will repeat H&H level. Consider transfusion 11. Mineral bone disorder will monitor calcium phosphorus levels 12. h/o tongue cancer with resection 13. History of diastolic heart failure/coronary disease -Continue medical management 14. Leukocytosis. -Etiology is likely secondary sepsis, steroids. -Slowly improving as steroids are being weaned down - Follow-up with infectious disease. 15. Hypomagnesemia. Continue to monitor and replete as needed 16. Left upper extremity DVT. Patient's on heparin and aspirin. Continue to monitor 17. Dysphagia status post PEG -Resume tube feedings, if no further episodes of emesis I spent greater than 40 minutes of critical care time with this pt Problems: Subjective 24 Hr Interval Summary Free Text/Dictation Patient yesterday had a code arrest with successful return of spontaneous circulation. Patient was intubated. Overnight patient has been stable. No other events noted Exam/Review of Systems Vital Signs Vitals Vital Signs Date Time Temp Pulse Resp B/P Pulse Ox O2 Delivery O2 Flow Rate FiO2 04/22/17 09:00 97 20 102/53 100 Mechanical Ventilator 04/22/17 08:00 35 04/22/17 08:00 98.6 04/21/17 16:12 6.0 Intake and Output 04/21/17 04/21/17 04/22/17 15:00 23:00 07:00 Intake Total 650 ml 540 ml 705 ml Output Total 275 ml 135 ml 230 ml Balance 375 ml 405 ml 475 ml Exam EENT: Head is normocephalic. NECK: Supple. HEART: Irregular LUNGS: Show diminished breath sounds at base. ABDOMEN: Soft, nontender to palpation without rebound or guarding. EXTREMITIES: Negative for clubbing, cyanosis. Positive edema, left upper extremity DERMATOLOGIC: No rashes. MUSCULOSKELETAL: No joint effusions, positive wounds. NEUROLOGIC: No change in exam Results Result Diagram: 04/22/17 0330 04/22/17 0330 Results 24 hrs Laboratory Tests Test 04/21/17 12:15 04/21/17 13:35 04/21/17 18:30 04/21/17 18:37 Vancomycin Level Trough 17.1 Bedside Glucose 115 150 Blood Gas Specimen Source Blood arterial Arterial Blood Date Drawn 04/21/2017 7:54:57 PM Arterial Blood pH (Temp corrected) 7.331 L Arterial Blood pCO2 (Temp correct) 41.9 Arterial Blood pO2 (Temp corrected) 464.3 H Arterial Blood HCO3 21.6 L Arterial Blood Base Excess -4.0 L Arterial Blood Oxygen Saturation 99.4 H Jonn Test ACCEPTAB Arterial Blood Gas Puncture Site Right Radial Arterial Blood Carboxyhemoglobin 0.3 Arterial Blood Methemoglobin 0.4 Blood Gas A-a O2 Differential 206.8 H Oxyhemoglobin Percent 98.7 Total Hemoglobin 9.4 L Blood Gas Temperature 37.0 Blood Gas Respiration Rate 20.0 Blood Gas Actual Respiration Rate 20 Blood Gas Modality VENT - AC FiO2 100.0 Blood Gas Tidal Volume 500.0 Blood Gas Low PEEP Setting 5.0 Blood Gas Inspiratory Pressure 40.0 Blood Gas Notified Whom RTR Blood Gas Notified Time 04/21/2017 8:10:40 PM Test 04/22/17 00:50 04/22/17 03:30 04/22/17 06:09 04/22/17 07:00 Bedside Glucose 156 168 White Blood Count 21.7 #H Red Blood Count 2.25 L Hemoglobin 7.4 L Hematocrit 24.1 L Mean Corpuscular Volume 107.1 H Mean Corpuscular Hemoglobin 32.9 Mean Corpuscular Hemoglobin Concent 30.7 L Red Cell Distribution Width 15.3 H Platelet Count 345 Mean Platelet Volume 11.4 H Neutrophils % 89.9 H Lymphocytes % 2.4 L Monocytes % 4.0 Eosinophils % 0.0 Basophils % 0.2 Nucleated Red Blood Cells % 0.0 Neutrophils # 19.5 H Lymphocytes # 0.5 L Monocytes # 0.9 Eosinophils # 0.0 Basophils # 0.0 Nucleated Red Blood Cells # 0.0 Sodium Level 141 Potassium Level 3.3 L Chloride Level 112 H Carbon Dioxide Level 24 Anion Gap 8 Blood Urea Nitrogen 63 H Creatinine 1.40 H Glucose Level 139 # Calcium Level 8.1 L Phosphorus Level 4.9 Magnesium Level 2.2 Blood Gas Specimen Source Blood arterial Arterial Blood Date Drawn 04/22/2017 7:30:38 AM Arterial Blood pH (Temp corrected) 7.451 H Arterial Blood pCO2 (Temp correct) 33.6 L Arterial Blood pO2 (Temp corrected) 69.2 L Arterial Blood HCO3 22.9 Arterial Blood Base Excess -0.7 Arterial Blood Oxygen Saturation 94.2 L Jonn Test ACCEPTAB Arterial Blood Gas Puncture Site Right Radial Arterial Blood Carboxyhemoglobin 0.3 Arterial Blood Methemoglobin 0.3 Blood Gas A-a O2 Differential 105.2 H Oxyhemoglobin Percent 93.6 Total Hemoglobin 10.3 L Blood Gas Temperature 37.0 Blood Gas Respiration Rate 20.0 Blood Gas Actual Respiration Rate 20 Blood Gas Modality VENT - AC FiO2 30.0 Blood Gas Tidal Volume 500.0 Blood Gas Low PEEP Setting 5.0 Blood Gas Notified Whom JLD Blood Gas Notified Time 04/22/2017 8:05:16 AM Medications Medications Current Medications Norepinephrine/ Dextrose (Levophed/D5W) 500 ml @ 0 mls/hr TITRATE IV Last administered on 04/14/17 10:24; Admin Dose 18.75 MLS/HR; Start 04/11/17 at 12:30 Aspirin (Aspirin) 325 mg DAILY NGT Last administered on 04/22/17 09:02; Admin Dose 325 MG; Start 04/12/17 at 09:00 Metoprolol Tartrate (Lopressor) 25 mg BID NGT Last administered on 04/21/17 21 :24; Admin Dose 25 MG; Start 04/11/17 at 21:00 Metoprolol Tartrate (Lopressor) 5 mg Q4H PRN IV HR>110 Hold SBP<110 Last administered on 04/20/17 17:36; Admin Dose 5 MG; Start 04/11/17 at 13:30 Lansoprazole 30 mg 30 mg DAILY GTB Last administered on 04/22/17 09:02; Admin Dose 30 MG; Start 04/12/17 at 09:00 Phenylephrine HCl/ Dextrose (Chuy-Syneph/D5W) 500 ml @ 0 mls/hr TITRATE IV Last administered on 04/12/17 02:52; Admin Dose 75 MLS/HR; Start 04/11/17 at 16:00 Miscellaneous Information 1 ea NOTE XX ; Start 04/11/17 at 16:30 Glucose (Glutose) 15 gm Q15M PRN PO DECREASED GLUCOSE; Start 04/11/17 at 16:30 Glucose (Glutose) 22.5 gm Q15M PRN PO DECREASED GLUCOSE; Start 04/11/17 at 16: 30 Dextrose (D50w Syringe) 25 ml Q15M PRN IV DECREASED GLUCOSE Last administered on 04/12/17 23:56; Admin Dose 25 ML; Start 04/11/17 at 16:30 Dextrose (D50w Syringe) 50 ml Q15M PRN IV DECREASED GLUCOSE; Start 04/11/17 at 16:30 Glucagon (Glucagen) 1 mg Q15M PRN IM DECREASED GLUCOSE; Start 04/11/17 at 16:30 Glucose 15 gm 15 gm Q15M PRN BUCCAL DECREASED GLUCOSE; Start 04/11/17 at 16:30 Midazolam HCl 50 ml @ 1 mls/hr TITRATE IV Last administered on 04/13/17 04:30; Admin Dose 2 MLS/HR; Start 04/11/17 at 23:30 Fentanyl (Sublimaze) 100 ml @ 0.5 mls/hr TITRATE IV Last administered on 02:48; Admin Dose 0.5 MLS/HR; Start 04/12/17 at 09:30 Metoclopramide HCl (Reglan) 10 mg Q6 IV Last administered on 04/22/17 06:02; Admin Dose 10 MG; Start 04/12/17 at 18:00 Insulin Aspart (Novolog Insulin Pen) NOVOLOG *MILD* ALGORI... Q6H SC Last administered on 04/22/17 06:11; Admin Dose 1 UNIT; Start 04/15/17 at 00:00 Metronidazole (Flagyl) 500 mg Q8 NGT Last administered on 04/22/17 06:02; Admin Dose 500 MG; Start 04/15/17 at 14:00 IV Flush 10 ml 10 ml PRN PRN IV FLUSH LINE; Start 04/15/17 at 13:00 Ciprofloxacin/ Dextrose (Cipro Ivpb) 200 ml @ 200 mls/hr Q12 IVPB Last administered on 04/22/17 09:01; Admin Dose 200 MLS/HR; Start 04/16/17 at 21:00 Hydrocortisone 25 mg 25 mg TID IV Last administered on 04/22/17 09:02; Admin Dose 25 MG; Start 04/16/17 at 13:00 Meropenem (Merrem 1 Gm/100 ml (Pmx)) 100 ml @ 200 mls/hr Q12 IVPB Last administered on 04/22/17 09:01; Admin Dose 200 MLS/HR; Start 04/16/17 at 21:00 Amiodarone HCl (Cordarone) 200 mg BID GTB Last administered on 04/22/17 09:02 ; Admin Dose 200 MG; Start 04/16/17 at 13:00 Diltiazem HCl (Cardizem Iv) 5 mg Q1H PRN IV AFIB GREATER THAN 110 Last administered on 04/17/17 16:41; Admin Dose 5 MG; Start 04/16/17 at 13:00 Enoxaparin Sodium (Lovenox) 40 mg HS SC Last administered on 04/17/17 20:38; Admin Dose 40 MG; Start 04/17/17 at 21:00; Status Future Hold Heparin Sodium (Porcine) (Heparin (5000 Units/0.5 ml)) 5,000 unit BID SC Last administered on 04/22/17 09:03; Admin Dose 5,000 UNIT; Start 04/18/17 at 16:22 Acetaminophen/ Hydrocodone Bitart ([place] (5/325)) 2 tab Q4H PRN NGT MODERATE PAIN LEVEL 4-6 Last administered on 04/20/17 01:47; Admin Dose 2 TAB; Start 04/18 at 17:30 Citalopram Hydrobromide (Celexa) 20 mg DAILY NGT Last administered on 09:02; Admin Dose 20 MG; Start 04/19/17 at 09:00 Hydralazine HCl (Apresoline) 20 mg Q6H PRN IV sbp ABOVE 160 Last administered on 04/20/17 12:09; Admin Dose 20 MG; Start 04/18/17 at 18:30 Acetaminophen/ Hydrocodone Bitart 1 tab 1 tab Q6H PRN GTB PAIN Last administered on 04/22/17 06:54; Admin Dose 1 TAB; Start 04/19/17 at 11:00 Caspofungin 50 mg/ Sodium Chloride 250 ml @ 250 mls/hr Q24H IV Last administered on 04/22/17 09:01; Admin Dose 250 MLS/HR; Start 04/21/17 at 10:00 Vancomycin HCl 100 ml @ 100 mls/hr Q36H IVPB Last administered on 04/21/17 18 :24; Admin Dose 100 MLS/HR; Start 04/21/17 at 17:00 Dextrose/Sodium Chloride (D5-NS) 1,000 ml @ 75 mls/hr [id number] IV Last administered on 04/21/17 23:15; Admin Dose 75 MLS/HR; Start 04/21/17 at 23:00 NINA MACIEL DO Apr 22, 2017 09:36
[2017-04-22] MEDS ORDERED: POTASSIUM CHLORIDE 20 MEQ POWDER FOR ORAL SOLN GTB ONE (10:00)
--- NOTE | 2017-04-22 10:23 | PN ---
Date/Time of Note Date/Time of Note DATE: 04/22/17 TIME: 10:12 Assessment/Plan Lines/Catheters IV Catheter Type (from [facility]): PICC Line Latif in Place (from [facility]): Yes Assessment/Plan Chief Complaint/Hosp Course 1. Cholelithiasis ? cholecystitis: Ct abd: sludge and small stones in the gallbladder. No gallbladder wall thickening is noted with some pericholecystic fluid is present. Patient off pressors; GT/OGT no output; HIDA positive; IR drain placement cancelled by radiologist since US without evidence of infection. Therefore, Dr. Guadalupe believes the HIDA is false positive. -No surgical intervention required at this time -will await medical optimization 2. Pneumonia: Recurrent; no fevers; intubated; less secretions; CXR 04/20 pulmonary edema and small bilateral pleural effusions. sputum cx: PSEUDOMONAS AERUGINOSA, K PNEUMO ESBL, NASRIN GLABRATA; respiratory acidosis improved -pulmonary toilet -abx per ID -diuresis -bipap 3. Vent dependent respiratory failure: 2/2 aspiration PNA+ CHF;reintubated, coded yesterday; appears comfortable -as above 4. Septic shock: improved -on abx -supportive 5. Uncontrolled Afib: s/p amiodarone drip, on oral amiodarone Now ST -medical optimization -lovenox 6. Elevated troponin:NSTEMI; septic shock/demand ischemia -trend 7. Leukocytosis with lactic acidosis: 2/2 pneumonia vs. steroids vs. other ( urine, blood cultures negative); Improving. -abx -judicious fluid management -supportive measures -poor prognosis 8. KEYONNA: likely 2/2 septic shock;cr increased; s/p code yesterday -judicious fluid management -avoid nephrotoxic agents 9. CHF: -judicious fluid management -medical optimization 10. Adrenal Insufficiency -solucortef 11. Hypomagnesemia: normalized -electrolyte optimization -monitor for cardiac abnormalities 12. Hypothyroidism -cont. synthroid 13. Macrocytic anemia: chronic vs. dilutional vs. acute bleed vs. b12/folate deficiency; h/h stable; noted gtube output coffee ground yesterday (? bleeding from mouth); h/h lower today -monitor -Transfuse as needed 14. Transaminitis: likely 2/2 septic shock vs. cholecystitis; normalized -trend, monitor 15. Diarrhea: 2/2 abx vs. enteritis: resolved -start probiotics -stool cultures 16. Thrombocytosis: 2/2 inflammatory vs. drug induced vs. other; normalized -monitor -bleeding precautions -supportive 17. Encephalopathy: 2/2 toxic metabolic vs. anoxic injury; CT: No acute intracranial hemorrhage or mass effect. Mild chronic microvascular disease and intracranial atherosclerosis; more alert and communicative; EEG shows no seizure activity -supportive 18. Bilateral upper extremity edema: likely 2/2 decreased movement vs. thrombosis; initial doppler negative, repeat doppler left arm (+) Thrombus -elevate extremities -supportive -anticoagulation 19. Hypoalbuminemia: 2/2 malnutrition +/- inflammation; decreased; tube feedings off -nutrition optimization -as above Patient seen and examined in collaboration with Dr. Justus Antonio Problems: Subjective 24 Hr Interval Summary Patient coded and reintubated yesterday. Today alert, responsive. No fevers, no abdominal pain, no cp, palpitations, n/v/d. tube feeding continued. tolerating tf. Exam/Review of Systems Vital Signs Vitals Vital Signs Date Time Temp Pulse Resp B/P Pulse Ox O2 Delivery O2 Flow Rate FiO2 04/22/17 09:00 97 20 102/53 100 Mechanical Ventilator 04/22/17 08:00 35 04/22/17 08:00 98.6 04/21/17 16:12 6.0 Intake and Output 04/21/17 04/21/17 04/22/17 14:59 22:59 06:59 Intake Total 630 ml 540 ml 725 ml Output Total 275 ml 115 ml 280 ml Balance 355 ml 425 ml 445 ml Exam Free Text/Dictation Constitutional: Awake, appears comfortable Head: atraumatic, normocephalic Eyes: PERRL, nl lids, nl sclera ENMT: No mucosa pink and moist (pink and dry), reintubated Neck: non-tender, supple Respiratory: Increased effort, no wheezing Cardiovascular: nl pulses, regular rate and rhythm, NSR, Gastrointestinal: soft, GT tubes site no erythema, no drainage, min tenderness, Genitourinary - Female: nl external genitalia Musculoskeletal: nl extremities to inspection Extremities: normal pulses, bilateral upper/lower extremity edema Neurological: more responsive Skin: nl turgor, No rash or lesions Lymph: nl lymph nodes Results Result Diagram: 04/22/17 03304/22/17 0330 ADDISON FREGOSO NP Apr 22, 2017 10:23
--- NOTE | 2017-04-22 11:35 | CONS ---
Date/Time of Note Date/Time of Note DATE: 04/22/17 TIME: 11:33 Consult Date/Type/Reason Admit Date/Time Apr 11, 2017 at 11:28 Initial Consult Date 04/12/17 Type of Consultation: Pulmonary Ordering Provider: NINA MACIEL DO Subjective Patient is now awake and alert on ventilator again. Currently not requiring vasopressor support. Objective Vital Signs Date Time Temp Pulse Resp B/P Pulse Ox O2 Delivery O2 Flow Rate FiO2 04/22/17 09:00 97 20 102/53 100 Mechanical Ventilator 04/22/17 08:00 35 04/22/17 08:00 98.6 04/21/17 16:12 6.0 Intake and Output 04/21/17 04/21/17 04/22/17 14:59 22:59 06:59 Intake Total 630 ml 540 ml 725 ml Output Total 275 ml 115 ml 280 ml Balance 355 ml 425 ml 445 ml Exam GENERAL: Chronically ill-appearing elderly lady on mechanical ventilation, awake and alert follows simple commands VITAL SIGNS: per chart NECK: Supple. No JVD or lymphadenopathy. Stoma site has dressing in place CARDIAC EXAM: S1, S2. No added sounds or murmurs. CHEST: Diminished air entry bilaterally poor effort ABDOMEN: Soft, nontender. No guarding or rebound. EXTREMITIES: No cyanosis, clubbing edema +2 NEUROLOGIC: Generalized weakness. Results/Medications Result Diagram: 04/22/17 0330 04/22/17 0330 Results 24 hrs Laboratory Tests Test 04/21/17 12:15 04/21/17 13:35 04/21/17 18:30 04/21/17 18:37 Vancomycin Level Trough 17.1 Bedside Glucose 115 150 Blood Gas Specimen Source Blood arterial Arterial Blood Date Drawn 04/21/2017 7:54:57 PM Arterial Blood pH (Temp corrected) 7.331 L Arterial Blood pCO2 (Temp correct) 41.9 Arterial Blood pO2 (Temp corrected) 464.3 H Arterial Blood HCO3 21.6 L Arterial Blood Base Excess -4.0 L Arterial Blood Oxygen Saturation 99.4 H Jonn Test ACCEPTAB Arterial Blood Gas Puncture Site Right Radial Arterial Blood Carboxyhemoglobin 0.3 Arterial Blood Methemoglobin 0.4 Blood Gas A-a O2 Differential 206.8 H Oxyhemoglobin Percent 98.7 Total Hemoglobin 9.4 L Blood Gas Temperature 37.0 Blood Gas Respiration Rate 20.0 Blood Gas Actual Respiration Rate 20 Blood Gas Modality VENT - AC FiO2 100.0 Blood Gas Tidal Volume 500.0 Blood Gas Low PEEP Setting 5.0 Blood Gas Inspiratory Pressure 40.0 Blood Gas Notified Whom RTR Blood Gas Notified Time 04/21/2017 8:10:40 PM Test 04/22/17 00:50 04/22/17 03:30 04/22/17 06:09 04/22/17 07:00 Bedside Glucose 156 168 White Blood Count 21.7 #H Red Blood Count 2.25 L Hemoglobin 7.4 L Hematocrit 24.1 L Mean Corpuscular Volume 107.1 H Mean Corpuscular Hemoglobin 32.9 Mean Corpuscular Hemoglobin Concent 30.7 L Red Cell Distribution Width 15.3 H Platelet Count 345 Mean Platelet Volume 11.4 H Neutrophils % 89.9 H Lymphocytes % 2.4 L Monocytes % 4.0 Eosinophils % 0.0 Basophils % 0.2 Nucleated Red Blood Cells % 0.0 Neutrophils # 19.5 H Lymphocytes # 0.5 L Monocytes # 0.9 Eosinophils # 0.0 Basophils # 0.0 Nucleated Red Blood Cells # 0.0 Sodium Level 141 Potassium Level 3.3 L Chloride Level 112 H Carbon Dioxide Level 24 Anion Gap 8 Blood Urea Nitrogen 63 H Creatinine 1.40 H Glucose Level 139 # Calcium Level 8.1 L Phosphorus Level 4.9 Magnesium Level 2.2 Blood Gas Specimen Source Blood arterial Arterial Blood Date Drawn 04/22/2017 7:30:38 AM Arterial Blood pH (Temp corrected) 7.451 H Arterial Blood pCO2 (Temp correct) 33.6 L Arterial Blood pO2 (Temp corrected) 69.2 L Arterial Blood HCO3 22.9 Arterial Blood Base Excess -0.7 Arterial Blood Oxygen Saturation 94.2 L Jonn Test ACCEPTAB Arterial Blood Gas Puncture Site Right Radial Arterial Blood Carboxyhemoglobin 0.3 Arterial Blood Methemoglobin 0.3 Blood Gas A-a O2 Differential 105.2 H Oxyhemoglobin Percent 93.6 Total Hemoglobin 10.3 L Blood Gas Temperature 37.0 Blood Gas Respiration Rate 20.0 Blood Gas Actual Respiration Rate 20 Blood Gas Modality VENT - AC FiO2 30.0 Blood Gas Tidal Volume 500.0 Blood Gas Low PEEP Setting 5.0 Blood Gas Notified Whom JLD Blood Gas Notified Time 04/22/2017 8:05:16 AM Medications Current Medications Norepinephrine/ Dextrose (Levophed/D5W) 500 ml @ 0 mls/hr TITRATE IV Last administered on 04/14/17 10:24; Admin Dose 18.75 MLS/HR; Start 04/11/17 at 12:30 Aspirin (Aspirin) 325 mg DAILY NGT Last administered on 04/22/17 09:02; Admin Dose 325 MG; Start 04/12/17 at 09:00 Metoprolol Tartrate (Lopressor) 25 mg BID NGT Last administered on 04/21/17 21 :24; Admin Dose 25 MG; Start 04/11/17 at 21:00 Metoprolol Tartrate (Lopressor) 5 mg Q4H PRN IV HR>110 Hold SBP<110 Last administered on 04/20/17 17:36; Admin Dose 5 MG; Start 04/11/17 at 13:30 Lansoprazole 30 mg 30 mg DAILY GTB Last administered on 04/22/17 09:02; Admin Dose 30 MG; Start 04/12/17 at 09:00 Phenylephrine HCl/ Dextrose ([place]-Syneph/D5W) 500 ml @ 0 mls/hr TITRATE IV Last administered on 04/12/17 02:52; Admin Dose 75 MLS/HR; Start 04/11/17 at 16:00 Miscellaneous Information 1 ea NOTE XX ; Start 04/11/17 at 16:30 Glucose (Glutose) 15 gm Q15M PRN PO DECREASED GLUCOSE; Start 04/11/17 at 16:30 Glucose (Glutose) 22.5 gm Q15M PRN PO DECREASED GLUCOSE; Start 04/11/17 at 16: 30 Dextrose (D50w Syringe) 25 ml Q15M PRN IV DECREASED GLUCOSE Last administered on 04/12/17 23:56; Admin Dose 25 ML; Start 04/11/17 at 16:30 Dextrose (D50w Syringe) 50 ml Q15M PRN IV DECREASED GLUCOSE; Start 04/11/17 at 16:30 Glucagon (Glucagen) 1 mg Q15M PRN IM DECREASED GLUCOSE; Start 04/11/17 at 16:30 Glucose 15 gm 15 gm Q15M PRN BUCCAL DECREASED GLUCOSE; Start 04/11/17 at 16:30 Midazolam HCl 50 ml @ 1 mls/hr TITRATE IV Last administered on 04/13/17 04:30; Admin Dose 2 MLS/HR; Start 04/11/17 at 23:30 Fentanyl (Sublimaze) 100 ml @ 0.5 mls/hr TITRATE IV Last administered on 02:48; Admin Dose 0.5 MLS/HR; Start 04/12/17 at 09:30 Metoclopramide HCl (Reglan) 10 mg Q6 IV Last administered on 04/22/17 06:02; Admin Dose 10 MG; Start 04/12/17 at 18:00 Insulin Aspart (Novolog Insulin Pen) NOVOLOG *MILD* ALGORI... Q6H SC Last administered on 04/22/17 06:11; Admin Dose 1 UNIT; Start 04/15/17 at 00:00 Metronidazole (Flagyl) 500 mg Q8 NGT Last administered on 04/22/17 06:02; Admin Dose 500 MG; Start 04/15/17 at 14:00 IV Flush 10 ml 10 ml PRN PRN IV FLUSH LINE; Start 04/15/17 at 13:00 Ciprofloxacin/ Dextrose (Cipro Ivpb) 200 ml @ 200 mls/hr Q12 IVPB Last administered on 04/22/17 09:01; Admin Dose 200 MLS/HR; Start 04/16/17 at 21:00 Hydrocortisone (Solu-Cortef) 25 mg TID IV Last administered on 04/22/17 09:02 ; Admin Dose 25 MG; Start 04/16/17 at 13:00 Amiodarone HCl (Cordarone) 200 mg BID GTB Last administered on 04/22/17 09:02 ; Admin Dose 200 MG; Start 04/16/17 at 13:00 Diltiazem HCl (Cardizem Iv) 5 mg Q1H PRN IV AFIB GREATER THAN 110 Last administered on 04/17/17 16:41; Admin Dose 5 MG; Start 04/16/17 at 13:00 Enoxaparin Sodium (Lovenox) 40 mg HS SC Last administered on 04/17/17 20:38; Admin Dose 40 MG; Start 04/17/17 at 21:00; Status Future Hold Heparin Sodium (Porcine) (Heparin (5000 Units/0.5 ml)) 5,000 unit BID SC Last administered on 04/22/17 09:03; Admin Dose 5,000 UNIT; Start 04/18/17 at 16:22 Acetaminophen/ Hydrocodone Bitart ([place] (5/325)) 2 tab Q4H PRN NGT MODERATE PAIN LEVEL 4-6 Last administered on 04/20/17 01:47; Admin Dose 2 TAB; Start 04/18 at 17:30 Citalopram Hydrobromide (Celexa) 20 mg DAILY NGT Last administered on 09:02; Admin Dose 20 MG; Start 04/19/17 at 09:00 Hydralazine HCl (Apresoline) 20 mg Q6H PRN IV sbp ABOVE 160 Last administered on 04/20/17 12:09; Admin Dose 20 MG; Start 04/18/17 at 18:30 Acetaminophen/ Hydrocodone Bitart 1 tab 1 tab Q6H PRN GTB PAIN Last administered on 04/22/17 06:54; Admin Dose 1 TAB; Start 04/19/17 at 11:00 Caspofungin 50 mg/ Sodium Chloride 250 ml @ 250 mls/hr Q24H IV Last administered on 04/22/17 09:01; Admin Dose 250 MLS/HR; Start 04/21/17 at 10:00 Vancomycin HCl 100 ml @ 100 mls/hr Q36H IVPB Last administered on 04/21/17 18 :24; Admin Dose 100 MLS/HR; Start 04/21/17 at 17:00 Meropenem/Sodium Chloride (Merrem 1 Gm/50 ml (Pmx)) 50 ml @ 200 mls/hr Q12 IVPB ; Start 04/22/17 at 21:00 Assessment/Plan Chief Complaint/Hosp Course IMP: 1. Status post septic Shock--likely due to multilobar aspiration pneumonia vs. HCAP possibly secondary to acute cholecystitis also 2. Multifocal pneumonia aspiration vs.HCAP 3. Hypercapnic Respiratory Failure--likely due to critical illness myopathy/ neuropathy 4. Status post lactic acidosis. Persistent leukocytosis, 5. Demand Ischemia 6. Cholecystitis, pending percutaneous drainage 7. Dysphagia continues tube feeding RECS: 1. Continue mechanical ventilation. Given patient's recent cardiac arrest and need for BiPAP prior to intubation I have recommended replacing tracheostomy. Patient's appears reluctant to do this at present but is willing to talk to ENT. 2. Oral care. 3. ABG: Monitor PCO2 4. Tube feeding 40 cc an hour 5. Continue antibiotics 6. Continue physical therapy Critical care time 40 minutes. Case d/w RN and patient's Problems: DARWIN CRAWFORD MD, [facility] Apr 22, 2017 11:35
--- NOTE | 2017-04-22 12:56 | PN ---
Date/Time of Note Date/Time of Note DATE: 04/22/17 TIME: 12:54 Assessment/Plan VTE Prophylaxis VTE Prophylaxis Intervention: SCD's Lines/Catheters IV Catheter Type (from Nrs): PICC Line Central line still needed: Yes Urinary Cath still in place: Yes Reason Cath still needed: other (indicate) Assessment/Plan Chief Complaint/Hosp Course 1. acute on chronic hypoxemic respiratory failure: s/p re-intubation on vent. 2. NSTEMI: due to demand ischemia. 3. CHF: due to diastolic heart failure 4. moderate 5. Arrhythmia and P afib, frequent PVC. 6. ANEMIA 7. pneumonia, severe leukocytosis now. 8. s/p sepsis and shock: off of levophed drip now. cont ASA vent support and abx as per PULM Team. correct lytes prn cont ICU care. betablocker if BP is stable and is able to tolerate it. thyroid supplement . will closely monitor in ICU. s/p amiodarone drip. will cont po amiodarone. replace lytes including K and Mg prn . Problems: Subjective 24 Hr Interval Summary Free Text/Dictation CARDIOLOGY FOLLOW UP: D/W staff , d/w . events noted rhythm was reviewed. pt remains in NSR but with frequent PAC, PVC. no more Afib Pt is still intubated and on vent. Objective: General: Intubated on vent in ICU HEENT: NC/AT. eyes are closed. oropharynx with old blood. NECK: NO JVD. no stridor. s/p previous trach with dressing covering it. CV: RRR. systolic ejection murmur; no gallop or rubs. PULM: + diffuse rhonchi. GI: SOFT, NT, ND, no rebound or guarding s/p PEG Extremity: trace B/L LE edema. no clubbing. neuro: opens her eye and follows command Psych: calm rectal: deferred Derm: multiple echymosis Exam/Review of Systems Vital Signs Vitals Vital Signs Date Time Temp Pulse Resp B/P Pulse Ox O2 Delivery O2 Flow Rate FiO2 04/22/17 12:00 87 04/22/17 11:20 20 99 30 04/22/17 09:00 102/53 Mechanical Ventilator 04/22/17 08:00 98.6 04/21/17 16:12 6.0 Intake and Output 04/21/17 04/21/17 04/22/17 15:00 23:00 07:00 Intake Total 650 ml 540 ml 705 ml Output Total 275 ml 135 ml 230 ml Balance 375 ml 405 ml 475 ml Results Result Diagram: 04/22/17 0330 04/22/17 0330 Results 24 hrs Laboratory Tests Test 04/21/17 13:35 04/21/17 18:30 04/21/17 18:37 04/22/17 00:50 Bedside Glucose 115 150 156 Blood Gas Specimen Source Blood arterial Arterial Blood Date Drawn 04/21/2017 7:54:57 PM Arterial Blood pH (Temp corrected) 7.331 L Arterial Blood pCO2 (Temp correct) 41.9 Arterial Blood pO2 (Temp corrected) 464.3 H Arterial Blood HCO3 21.6 L Arterial Blood Base Excess -4.0 L Arterial Blood Oxygen Saturation 99.4 H Jonn Test ACCEPTAB Arterial Blood Gas Puncture Site Right Radial Arterial Blood Carboxyhemoglobin 0.3 Arterial Blood Methemoglobin 0.4 Blood Gas A-a O2 Differential 206.8 H Oxyhemoglobin Percent 98.7 Total Hemoglobin 9.4 L Blood Gas Temperature 37.0 Blood Gas Respiration Rate 20.0 Blood Gas Actual Respiration Rate 20 Blood Gas Modality VENT - AC FiO2 100.0 Blood Gas Tidal Volume 500.0 Blood Gas Low PEEP Setting 5.0 Blood Gas Inspiratory Pressure 40.0 Blood Gas Notified Whom RTR Blood Gas Notified Time 04/21/2017 8:10:40 PM Test 04/22/17 03:30 04/22/17 06:09 04/22/17 07:00 04/22/17 11:40 White Blood Count 21.7 #H Red Blood Count 2.25 L Hemoglobin 7.4 L Hematocrit 24.1 L Mean Corpuscular Volume 107.1 H Mean Corpuscular Hemoglobin 32.9 Mean Corpuscular Hemoglobin Concent 30.7 L Red Cell Distribution Width 15.3 H Platelet Count 345 Mean Platelet Volume 11.4 H Neutrophils % 89.9 H Lymphocytes % 2.4 L Monocytes % 4.0 Eosinophils % 0.0 Basophils % 0.2 Nucleated Red Blood Cells % 0.0 Neutrophils # 19.5 H Lymphocytes # 0.5 L Monocytes # 0.9 Eosinophils # 0.0 Basophils # 0.0 Nucleated Red Blood Cells # 0.0 Sodium Level 141 Potassium Level 3.3 L Chloride Level 112 H Carbon Dioxide Level 24 Anion Gap 8 Blood Urea Nitrogen 63 H Creatinine 1.40 H Glucose Level 139 # Calcium Level 8.1 L Phosphorus Level 4.9 Magnesium Level 2.2 Bedside Glucose 168 163 Blood Gas Specimen Source Blood arterial Arterial Blood Date Drawn 04/22/2017 7:30:38 AM Arterial Blood pH (Temp corrected) 7.451 H Arterial Blood pCO2 (Temp correct) 33.6 L Arterial Blood pO2 (Temp corrected) 69.2 L Arterial Blood HCO3 22.9 Arterial Blood Base Excess -0.7 Arterial Blood Oxygen Saturation 94.2 L Jonn Test ACCEPTAB Arterial Blood Gas Puncture Site Right Radial Arterial Blood Carboxyhemoglobin 0.3 Arterial Blood Methemoglobin 0.3 Blood Gas A-a O2 Differential 105.2 H Oxyhemoglobin Percent 93.6 Total Hemoglobin 10.3 L Blood Gas Temperature 37.0 Blood Gas Respiration Rate 20.0 Blood Gas Actual Respiration Rate 20 Blood Gas Modality VENT - AC FiO2 30.0 Blood Gas Tidal Volume 500.0 Blood Gas Low PEEP Setting 5.0 Blood Gas Notified Whom JLD Blood Gas Notified Time 04/22/2017 8:05:16 AM Medications Medications Current Medications Norepinephrine/ Dextrose (Levophed/D5W) 500 ml @ 0 mls/hr TITRATE IV Last administered on 04/14/17 10:24; Admin Dose 18.75 MLS/HR; Start 04/11/17 at 12:30 Aspirin (Aspirin) 325 mg DAILY NGT Last administered on 04/22/17 09:02; Admin Dose 325 MG; Start 04/12/17 at 09:00 Metoprolol Tartrate (Lopressor) 25 mg BID NGT Last administered on 04/21/17 21 :24; Admin Dose 25 MG; Start 04/11/17 at 21:00 Metoprolol Tartrate (Lopressor) 5 mg Q4H PRN IV HR>110 Hold SBP<110 Last administered on 04/20/17 17:36; Admin Dose 5 MG; Start 04/11/17 at 13:30 Lansoprazole 30 mg 30 mg DAILY GTB Last administered on 04/22/17 09:02; Admin Dose 30 MG; Start 04/12/17 at 09:00 Phenylephrine HCl/ Dextrose ([place]uy-Syneph/D5W) 500 ml @ 0 mls/hr TITRATE IV Last administered on 04/12/17 02:52; Admin Dose 75 MLS/HR; Start 04/11/17 at 16:00 Miscellaneous Information 1 ea NOTE XX ; Start 04/11/17 at 16:30 Glucose (Glutose) 15 gm Q15M PRN PO DECREASED GLUCOSE; Start 04/11/17 at 16:30 Glucose (Glutose) 22.5 gm Q15M PRN PO DECREASED GLUCOSE; Start 04/11/17 at 16: 30 Dextrose (D50w Syringe) 25 ml Q15M PRN IV DECREASED GLUCOSE Last administered on 04/12/17 23:56; Admin Dose 25 ML; Start 04/11/17 at 16:30 Dextrose (D50w Syringe) 50 ml Q15M PRN IV DECREASED GLUCOSE; Start 04/11/17 at 16:30 Glucagon (Glucagen) 1 mg Q15M PRN IM DECREASED GLUCOSE; Start 04/11/17 at 16:30 Glucose 15 gm 15 gm Q15M PRN BUCCAL DECREASED GLUCOSE; Start 04/11/17 at 16:30 Midazolam HCl 50 ml @ 1 mls/hr TITRATE IV Last administered on 04/13/17 04:30; Admin Dose 2 MLS/HR; Start 04/11/17 at 23:30 Fentanyl (Sublimaze) 100 ml @ 0.5 mls/hr TITRATE IV Last administered on 02:48; Admin Dose 0.5 MLS/HR; Start 04/12/17 at 09:30 Metoclopramide HCl (Reglan) 10 mg Q6 IV Last administered on 04/22/17 12:30; Admin Dose 10 MG; Start 04/12/17 at 18:00 Insulin Aspart (Novolog Insulin Pen) NOVOLOG *MILD* ALGORI... Q6H SC Last administered on 04/22/17 11:50; Admin Dose 1 UNIT; Start 04/15/17 at 00:00 Metronidazole (Flagyl) 500 mg Q8 NGT Last administered on 04/22/17 06:02; Admin Dose 500 MG; Start 04/15/17 at 14:00 IV Flush 10 ml 10 ml PRN PRN IV FLUSH LINE; Start 04/15/17 at 13:00 Ciprofloxacin/ Dextrose (Cipro Ivpb) 200 ml @ 200 mls/hr Q12 IVPB Last administered on 04/22/17 09:01; Admin Dose 200 MLS/HR; Start 04/16/17 at 21:00 Hydrocortisone (Solu-Cortef) 25 mg TID IV Last administered on 04/22/17 12:31 ; Admin Dose 25 MG; Start 04/16/17 at 13:00 Amiodarone HCl (Cordarone) 200 mg BID GTB Last administered on 04/22/17 09:02 ; Admin Dose 200 MG; Start 04/16/17 at 13:00 Diltiazem HCl (Cardizem Iv) 5 mg Q1H PRN IV AFIB GREATER THAN 110 Last administered on 04/17/17 16:41; Admin Dose 5 MG; Start 04/16/17 at 13:00 Enoxaparin Sodium (Lovenox) 40 mg HS SC Last administered on 04/17/17 20:38; Admin Dose 40 MG; Start 04/17/17 at 21:00; Status Future Hold Heparin Sodium (Porcine) (Heparin (5000 Units/0.5 ml)) 5,000 unit BID SC Last administered on 04/22/17 09:03; Admin Dose 5,000 UNIT; Start 04/18/17 at 16:22 Acetaminophen/ Hydrocodone Bitart ([place] (5/325)) 2 tab Q4H PRN NGT MODERATE PAIN LEVEL 4-6 Last administered on 04/20/17 01:47; Admin Dose 2 TAB; Start 04/18 at 17:30 Citalopram Hydrobromide (Celexa) 20 mg DAILY NGT Last administered on 09:02; Admin Dose 20 MG; Start 04/19/17 at 09:00 Hydralazine HCl (Apresoline) 20 mg Q6H PRN IV sbp ABOVE 160 Last administered on 04/20/17 12:09; Admin Dose 20 MG; Start 04/18/17 at 18:30 Acetaminophen/ Hydrocodone Bitart 1 tab 1 tab Q6H PRN GTB PAIN Last administered on 04/22/17 06:54; Admin Dose 1 TAB; Start 04/19/17 at 11:00 Caspofungin 50 mg/ Sodium Chloride 250 ml @ 250 mls/hr Q24H IV Last administered on 04/22/17 09:01; Admin Dose 250 MLS/HR; Start 04/21/17 at 10:00 Vancomycin HCl 100 ml @ 100 mls/hr Q36H IVPB Last administered on 04/21/17t 18 :24; Admin Dose 100 MLS/HR; Start 04/21/17 at 17:00 Meropenem/Sodium Chloride (Merrem 1 Gm/50 ml (Pmx)) 50 ml @ 200 mls/hr Q12 IVPB ; Start 04/22/17 at 21:00 FRANCISCO BLACKWOOD MD Apr 22, 2017 12:56
[2017-04-22 14:11] LABS: HEMATOCRIT 23.3 % (37.0-47.0); HEMOGLOBIN 7.7 g/dl (12.0-16.0)
--- NOTE | 2017-04-22 14:21 | CONS ---
Date/Time of Note Date/Time of Note DATE: 04/22/17 TIME: 14:18 Assessment/Plan Assessment/Plan Chief Complaint/Hosp Course Patient was intubated yesterday status post PEA, she is lying comfortably in bed , at bedside Temperature 97.9 pulse 87 respirations 20 blood pressure 111/63 saturation 99 on vent WBC 21.7 H&H 7.4 and 24.1 platelets 345, neutrophils 89.9 BN 63 creatinine 1.40 Microbiology: Repeat blood and urine culture on April 20 remain negative Sputum culture on admission grew multidrug-resistant pseudomonas aeruginosa, Klebsiella ESBL, Ramonita glabrata Antibiotics: Cancidas vancomycin ciprofloxacin meropenem Flagyl Indwelling's: Right upper extremity PICC line Latif Physical examination: Well-developed fragile chronically ill-appearing elderly woman who is intubated, in no distress. Head atraumatic, normocephalic sclera nonicteric. Neck is supple. Chest rise symmetrical breath sounds with scattered rhonchi. Abdomen soft, bowel tones present. Extremities with bilateral edema. Assessment: 1. Severe sepsis, status post shock 2. Acute on chronic respiratory failure, status post re-intubated 3. Healthcare associated pneumonia 4. Leukocytosis, patient had been on Solu-Cortef since admission 5. Diarrhea with a history of C. difficile colitis, on empiric Flagyl 6. 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 Gallstones ==> no evidence for cholecystitis per repeat abdominal ultrasound 10. Resolving encephalopathy Plan: Comfortable on vent, continue antibiotics, steroids taper, follow pulmonary recommendations, has been refusing tracheostomy Discussed with RN Problems: Consultation Date/Type/Reason Admit Date/Time Apr 11, 2017 at 11:28 Initial Consult Date 04/12/17 Type of Consultation: ID Referring Provider: NINA MACIEL DO Exam/Review of Systems Vital Signs Vitals Vital Signs Date Time Temp Pulse Resp B/P Pulse Ox O2 Delivery O2 Flow Rate FiO2 04/22/17 13:00 102 23 122/63 99 Mechanical Ventilator 04/22/17 12:00 97.9 04/22/17 11:20 30 04/21/17 16:12 6.0 Intake and Output 04/21/17 04/21/17 04/22/17 15:00 23:00 07:00 Intake Total 650 ml 540 ml 705 ml Output Total 275 ml 135 ml 230 ml Balance 375 ml 405 ml 475 ml Results Result Diagram: 04/22/17 1345 04/22/17 0330 Results 24 hrs Laboratory Tests Test 04/21/17 18:30 04/21/17 18:37 04/22/17 00:50 04/22/17 03:30 Blood Gas Specimen Source Blood arterial Arterial Blood Date Drawn 04/21/2017 7:54:57 PM Arterial Blood pH (Temp corrected) 7.331 L Arterial Blood pCO2 (Temp correct) 41.9 Arterial Blood pO2 (Temp corrected) 464.3 H Arterial Blood HCO3 21.6 L Arterial Blood Base Excess -4.0 L Arterial Blood Oxygen Saturation 99.4 H Jonn Test ACCEPTAB Arterial Blood Gas Puncture Site Right Radial Arterial Blood Carboxyhemoglobin 0.3 Arterial Blood Methemoglobin 0.4 Blood Gas A-a O2 Differential 206.8 H Oxyhemoglobin Percent 98.7 Total Hemoglobin 9.4 L Blood Gas Temperature 37.0 Blood Gas Respiration Rate 20.0 Blood Gas Actual Respiration Rate 20 Blood Gas Modality VENT - AC FiO2 100.0 Blood Gas Tidal Volume 500.0 Blood Gas Low PEEP Setting 5.0 Blood Gas Inspiratory Pressure 40.0 Blood Gas Notified Whom RTR Blood Gas Notified Time 04/21/2017 8:10:40 PM Bedside Glucose 150 156 White Blood Count 21.7 #H Red Blood Count 2.25 L Hemoglobin 7.4 L Hematocrit 24.1 L Mean Corpuscular Volume 107.1 H Mean Corpuscular Hemoglobin 32.9 Mean Corpuscular Hemoglobin Concent 30.7 L Red Cell Distribution Width 15.3 H Platelet Count 345 Mean Platelet Volume 11.4 H Neutrophils % 89.9 H Lymphocytes % 2.4 L Monocytes % 4.0 Eosinophils % 0.0 Basophils % 0.2 Nucleated Red Blood Cells % 0.0 Neutrophils # 19.5 H Lymphocytes # 0.5 L Monocytes # 0.9 Eosinophils # 0.0 Basophils # 0.0 Nucleated Red Blood Cells # 0.0 Sodium Level 141 Potassium Level 3.3 L Chloride Level 112 H Carbon Dioxide Level 24 Anion Gap 8 Blood Urea Nitrogen 63 H Creatinine 1.40 H Glucose Level 139 # Calcium Level 8.1 L Phosphorus Level 4.9 Magnesium Level 2.2 Test 04/22/17 06:09 04/22/17 07:00 04/22/17 11:40 04/22/17 13:45 Bedside Glucose 168 163 Blood Gas Specimen Source Blood arterial Arterial Blood Date Drawn 04/22/2017 7:30:38 AM Arterial Blood pH (Temp corrected) 7.451 H Arterial Blood pCO2 (Temp correct) 33.6 L Arterial Blood pO2 (Temp corrected) 69.2 L Arterial Blood HCO3 22.9 Arterial Blood Base Excess -0.7 Arterial Blood Oxygen Saturation 94.2 L Jonn Test ACCEPTAB Arterial Blood Gas Puncture Site Right Radial Arterial Blood Carboxyhemoglobin 0.3 Arterial Blood Methemoglobin 0.3 Blood Gas A-a O2 Differential 105.2 H Oxyhemoglobin Percent 93.6 Total Hemoglobin 10.3 L Blood Gas Temperature 37.0 Blood Gas Respiration Rate 20.0 Blood Gas Actual Respiration Rate 20 Blood Gas Modality VENT - AC FiO2 30.0 Blood Gas Tidal Volume 500.0 Blood Gas Low PEEP Setting 5.0 Blood Gas Notified Whom JLD Blood Gas Notified Time 04/22/2017 8:05:16 AM Hemoglobin 7.7 L Hematocrit 23.3 L Medications Medications Current Medications Norepinephrine/ Dextrose (Levophed/D5W) 500 ml @ 0 mls/hr TITRATE IV Last administered on 04/14/17 10:24; Admin Dose 18.75 MLS/HR; Start 04/11/17 at 12:30 Aspirin (Aspirin) 325 mg DAILY NGT Last administered on 04/22/17 09:02; Admin Dose 325 MG; Start 04/12/17 at 09:00 Metoprolol Tartrate (Lopressor) 25 mg BID NGT Last administered on 04/21/17 21 :24; Admin Dose 25 MG; Start 04/11/17 at 21:00 Metoprolol Tartrate (Lopressor) 5 mg Q4H PRN IV HR>110 Hold SBP<110 Last administered on 04/20/17 17:36; Admin Dose 5 MG; Start 04/11/17 at 13:30 Lansoprazole 30 mg 30 mg DAILY GTB Last administered on 04/22/17 09:02; Admin Dose 30 MG; Start 04/12/17 at 09:00 Phenylephrine HCl/ Dextrose (Chuy-Syneph/D5W) 500 ml @ 0 mls/hr TITRATE IV Last administered on 04/12/17 02:52; Admin Dose 75 MLS/HR; Start 04/11/17 at 16:00 Miscellaneous Information 1 ea NOTE XX ; Start 04/11/17 at 16:30 Glucose (Glutose) 15 gm Q15M PRN PO DECREASED GLUCOSE; Start 04/11/17 at 16:30 Glucose (Glutose) 22.5 gm Q15M PRN PO DECREASED GLUCOSE; Start 04/11/17 at 16: 30 Dextrose (D50w Syringe) 25 ml Q15M PRN IV DECREASED GLUCOSE Last administered on 04/12/17 23:56; Admin Dose 25 ML; Start 04/11/17 at 16:30 Dextrose (D50w Syringe) 50 ml Q15M PRN IV DECREASED GLUCOSE; Start 04/11/17 at 16:30 Glucagon (Glucagen) 1 mg Q15M PRN IM DECREASED GLUCOSE; Start 04/11/17 at 16:30 Glucose 15 gm 15 gm Q15M PRN BUCCAL DECREASED GLUCOSE; Start 04/11/17 at 16:30 Midazolam HCl 50 ml @ 1 mls/hr TITRATE IV Last administered on 04/13/17 04:30; Admin Dose 2 MLS/HR; Start 04/11/17 at 23:30 Fentanyl (Sublimaze) 100 ml @ 0.5 mls/hr TITRATE IV Last administered on 02:48; Admin Dose 0.5 MLS/HR; Start 04/12/17 at 09:30 Metoclopramide HCl (Reglan) 10 mg Q6 IV Last administered on 04/22/17 12:30; Admin Dose 10 MG; Start 04/12/17 at 18:00 Insulin Aspart (Novolog Insulin Pen) NOVOLOG *MILD* ALGORI... Q6H SC Last administered on 04/22/17 11:50; Admin Dose 1 UNIT; Start 04/15/17 at 00:00 Metronidazole (Flagyl) 500 mg Q8 NGT Last administered on 04/22/17 13:46; Admin Dose 500 MG; Start 04/15/17 at 14:00 IV Flush 10 ml 10 ml PRN PRN IV FLUSH LINE; Start 04/15/17 at 13:00 Ciprofloxacin/ Dextrose (Cipro Ivpb) 200 ml @ 200 mls/hr Q12 IVPB Last administered on 04/22/17 09:01; Admin Dose 200 MLS/HR; Start 04/16/17 at 21:00 Hydrocortisone (Solu-Cortef) 25 mg TID IV Last administered on 04/22/17 12:31 ; Admin Dose 25 MG; Start 04/16/17 at 13:00 Amiodarone HCl (Cordarone) 200 mg BID GTB Last administered on 04/22/17 09:02 ; Admin Dose 200 MG; Start 04/16/17 at 13:00 Diltiazem HCl (Cardizem Iv) 5 mg Q1H PRN IV AFIB GREATER THAN 110 Last administered on 04/17/17 16:41; Admin Dose 5 MG; Start 04/16/17 at 13:00 Enoxaparin Sodium (Lovenox) 40 mg HS SC Last administered on 04/17/17 20:38; Admin Dose 40 MG; Start 04/17/17 at 21:00; Status Future Hold Heparin Sodium (Porcine) (Heparin (5000 Units/0.5 ml)) 5,000 unit BID SC Last administered on 04/22/17 09:03; Admin Dose 5,000 UNIT; Start 04/18/17 at 16:22 Acetaminophen/ Hydrocodone Bitart ([place] (5/325)) 2 tab Q4H PRN NGT MODERATE PAIN LEVEL 4-6 Last administered on 04/20/17 01:47; Admin Dose 2 TAB; Start 04/18 at 17:30 Citalopram Hydrobromide (Celexa) 20 mg DAILY NGT Last administered on 09:02; Admin Dose 20 MG; Start 04/19/17 at 09:00 Hydralazine HCl (Apresoline) 20 mg Q6H PRN IV sbp ABOVE 160 Last administered on 04/20/17 12:09; Admin Dose 20 MG; Start 04/18/17 at 18:30 Acetaminophen/ Hydrocodone Bitart 1 tab 1 tab Q6H PRN GTB PAIN Last administered on 04/22/17 06:54; Admin Dose 1 TAB; Start 04/19/17 at 11:00 Caspofungin 50 mg/ Sodium Chloride 250 ml @ 250 mls/hr Q24H IV Last administered on 04/22/17 09:01; Admin Dose 250 MLS/HR; Start 04/21/17 at 10:00 Vancomycin HCl 100 ml @ 100 mls/hr Q36H IVPB Last administered on 04/21/17t 18 :24; Admin Dose 100 MLS/HR; Start 04/21/17 at 17:00 Meropenem/Sodium Chloride (Merrem 1 Gm/50 ml (Pmx)) 50 ml @ 200 mls/hr Q12 IVPB ; Start 04/22/17 at 21:00 LORETO MCKEON NP Apr 22, 2017 14:21
[2017-04-22] MEDS ORDERED: VITAMIN A & D 5 GM OINT PACKET TOP PRN (15:00)
[2017-04-22] MEDS: CHLORHEXIDINE GLUCONATE 15 ML UD CUP MT SCH (20:55)
[2017-04-22] MEDS: VITAMIN A & D 5 GM OINT PACKET TOP SCH (20:56)
[2017-04-22] MEDS: HYDROCODONE/APAP (5/325) TAB GTB SCH (20:57)
[2017-04-22] MEDS: MEROPENEM 1 GM/50ML(PMX) 50 ML IVPB SCH (21:38)
[2017-04-23] VITALS (36 sets, daily range): BP systolic 113–159; BP diastolic 60–101; PULSE 72–104; RESP 19–28
[2017-04-23] MEDS: METOCLOPRAMIDE 10 MG INJ IV SCH ×5 (00:26→23:57)
[2017-04-23] MEDS: INSULIN ASPART [NOVOLOG] 3 ML PEN SC SCH ×4 (00:28→18:17)
[2017-04-23] MEDS: HYDROCODONE/APAP (5/325) TAB GTB SCH ×4 (04:18→21:58)
[2017-04-23 05:25] LABS: ADD SCAN DIFF NO
[2017-04-23 05:30] LABS: BASOPHILS % 0.1 % (0.0-2.0); HEMATOCRIT 24.3 % (37.0-47.0); HEMOGLOBIN 7.6 g/dl (12.0-16.0); LYMPHOCYTES # 0.7 10^3/ul (0.8-2.9); LYMPHOCYTES % 3.3 % (15.0-51.0); MEAN CORPUSCULAR HGB CONC 31.3 g/dl (32.0-37.0); MEAN CORPUSCULAR VOLUME 105.7 fl (82.0-101.0); MEAN PLATELET VOLUME 11.6 fl (7.4-10.4); MONOCYTE # 1.1 10^3/ul (0.3-0.9); MONOCYTES % 5.5 % (0.0-11.0); NEUTROPHIL # 17.3 10^3/ul (1.6-7.5); PLATELET COUNT 367 10^3/UL (140-415); RED CELL DISTRIBUTION WIDTH 14.9 % (11.5-14.5); WHITE BLOOD COUNT 19.7 10^3/ul (4.8-10.8)
[2017-04-23] MEDS: VANCOMYCIN 500MG/NS (PMX) 100 ML IVPB SCH (05:59)
[2017-04-23] MEDS: LEVOTHYROXINE 75 MCG TAB GTB SCH (06:01)
[2017-04-23] MEDS: FUROSEMIDE 20 MG INJ IV SCH ×2 (06:01→18:10)
[2017-04-23] MEDS: metroNIDAZOLE 500 MG TAB NGT SCH ×3 (06:01→21:57)
[2017-04-23 06:15] LABS: CALCIUM 8.2 mg/dl (8.4-10.2); CREATININE 1.38 mg/dl (0.44-1.00); MAGNESIUM 2.2 mg/dl (1.7-2.5); PHOSPHORUS 3.7 mg/dl (2.5-4.9); POTASSIUM 3.4 mmol/L (3.5-5.1)
--- NOTE | 2017-04-23 08:26 | PN ---
Date/Time of Note Date/Time of Note DATE: 04/23/17 TIME: 08:23 Assessment/Plan VTE Prophylaxis VTE Prophylaxis Intervention: SCD's Lines/Catheters IV Catheter Type (from Nrs): PICC Line Central line still needed: Yes Urinary Cath still in place: Yes Reason Cath still needed: other (indicate) Assessment/Plan Chief Complaint/Hosp Course 1. acute on chronic hypoxemic respiratory failure: s/p re-intubation on vent. 2. NSTEMI: due to demand ischemia. 3. CHF: due to diastolic heart failure 4. moderate 5. Arrhythmia and P afib, frequent PVC: currently stable now 6. ANEMIA 7. pneumonia, severe leukocytosis now. 8. s/p sepsis and shock: off of levophed drip now. cont ASA vent support and abx as per PULM Team. correct lytes prn cont ICU care. betablocker if BP is stable and is able to tolerate it. thyroid supplement . will closely monitor in ICU. s/p amiodarone drip. will cont po amiodarone. replace lytes including K and Mg prn . Problems: Subjective 24 Hr Interval Summary Free Text/Dictation CARDIOLOGY FOLLOW UP: D/W staff , rhythm was reviewed. pt remains in NSR but with frequent PAC, PVC. no more Afib Pt is still intubated and on vent. Objective: General: Intubated on vent in ICU HEENT: NC/AT. . oropharynx with lesions. NECK: NO JVD. no stridor. s/p previous trach with dressing covering it. CV: RRR. systolic ejection murmur; no gallop or rubs. PULM: + diffuse rhonchi. GI: SOFT, NT, ND, no rebound or guarding s/p PEG Extremity: 1-2+ B/L LE edema. no clubbing. neuro: opens her eye and follows command Psych: calm rectal: deferred Derm: multiple echymosis Exam/Review of Systems Vital Signs Vitals Vital Signs Date Time Temp Pulse Resp B/P Pulse Ox O2 Delivery O2 Flow Rate FiO2 04/23/17 08:00 98.6 91 20 130/67 100 Mechanical Ventilator 04/23/17 05:27 30 04/21/17 16:12 6.0 Intake and Output 04/22/17 04/22/17 04/23/17 15:00 23:00 07:00 Intake Total 965 ml 490 ml 310 ml Output Total 250 ml 390 ml 276 ml Balance 715 ml 100 ml 34 ml Results Result Diagram: 04/23/17 0430 04/23/17 0430 Results 24 hrs Laboratory Tests Test 04/22/17 11:40 04/22/17 13:45 04/22/17 17:11 04/23/17 00:25 Bedside Glucose 163 168 145 Hemoglobin 7.7 L Hematocrit 23.3 L Test 04/23/17 04:30 04/23/17 06:06 White Blood Count 19.7 H Red Blood Count 2.30 L Hemoglobin 7.6 L Hematocrit 24.3 L Mean Corpuscular Volume 105.7 H Mean Corpuscular Hemoglobin 33.0 Mean Corpuscular Hemoglobin Concent 31.3 L Red Cell Distribution Width 14.9 H Platelet Count 367 Mean Platelet Volume 11.6 H Neutrophils % 88.0 H Lymphocytes % 3.3 L Monocytes % 5.5 Eosinophils % 0.0 Basophils % 0.1 Nucleated Red Blood Cells % 0.0 Neutrophils # 17.3 H Lymphocytes # 0.7 L Monocytes # 1.1 H Eosinophils # 0.0 Basophils # 0.0 Nucleated Red Blood Cells # 0.0 Sodium Level 142 Potassium Level 3.4 L Chloride Level 112 H Carbon Dioxide Level 25 Anion Gap 8 Blood Urea Nitrogen 66 H Creatinine 1.38 H Glucose Level 132 Calcium Level 8.2 L Phosphorus Level 3.7 Magnesium Level 2.2 Bedside Glucose 140 Medications Medications Current Medications Norepinephrine/ Dextrose (Levophed/D5W) 500 ml @ 0 mls/hr TITRATE IV Last administered on 04/14/17 10:24; Admin Dose 18.75 MLS/HR; Start 04/11/17 at 12:30 Aspirin (Aspirin) 325 mg DAILY NGT Last administered on 04/22/17 09:02; Admin Dose 325 MG; Start 04/12/17 at 09:00 Metoprolol Tartrate (Lopressor) 25 mg BID NGT Last administered on 04/22/17 20 :55; Admin Dose 25 MG; Start 04/11/17 at 21:00 Metoprolol Tartrate (Lopressor) 5 mg Q4H PRN IV HR>110 Hold SBP<110 Last administered on 04/20/17 17:36; Admin Dose 5 MG; Start 04/11/17 at 13:30 Lansoprazole 30 mg 30 mg DAILY GTB Last administered on 04/22/17 09:02; Admin Dose 30 MG; Start 04/12/17 at 09:00 Phenylephrine HCl/ Dextrose ([place]uy-Syneph/D5W) 500 ml @ 0 mls/hr TITRATE IV Last administered on 04/12/17 02:52; Admin Dose 75 MLS/HR; Start 04/11/17 at 16:00 Miscellaneous Information 1 ea NOTE XX ; Start 04/11/17 at 16:30 Glucose (Glutose) 15 gm Q15M PRN PO DECREASED GLUCOSE; Start 04/11/17 at 16:30 Glucose (Glutose) 22.5 gm Q15M PRN PO DECREASED GLUCOSE; Start 04/11/17 at 16: 30 Dextrose (D50w Syringe) 25 ml Q15M PRN IV DECREASED GLUCOSE Last administered on 04/12/17 23:56; Admin Dose 25 ML; Start 04/11/17 at 16:30 Dextrose (D50w Syringe) 50 ml Q15M PRN IV DECREASED GLUCOSE; Start 04/11/17 at 16:30 Glucagon (Glucagen) 1 mg Q15M PRN IM DECREASED GLUCOSE; Start 04/11/17 at 16:30 Glucose 15 gm 15 gm Q15M PRN BUCCAL DECREASED GLUCOSE; Start 04/11/17 at 16:30 Midazolam HCl 50 ml @ 1 mls/hr TITRATE IV Last administered on 04/13/17 04:30; Admin Dose 2 MLS/HR; Start 04/11/17 at 23:30 Fentanyl (Sublimaze) 100 ml @ 0.5 mls/hr TITRATE IV Last administered on 02:48; Admin Dose 0.5 MLS/HR; Start 04/12/17 at 09:30 Metoclopramide HCl (Reglan) 10 mg Q6 IV Last administered on 04/23/17 06:01; Admin Dose 10 MG; Start 04/12/17 at 18:00 Insulin Aspart (Novolog Insulin Pen) NOVOLOG *MILD* ALGORI... Q6H SC Last administered on 04/23/17 00:28; Admin Dose 1 UNIT; Start 04/15/17 at 00:00 Metronidazole (Flagyl) 500 mg Q8 NGT Last administered on 04/23/17 06:01; Admin Dose 500 MG; Start 04/15/17 at 14:00 IV Flush 10 ml 10 ml PRN PRN IV FLUSH LINE; Start 04/15/17 at 13:00 Ciprofloxacin/ Dextrose (Cipro Ivpb) 200 ml @ 200 mls/hr Q12 IVPB Last administered on 04/22/17 20:53; Admin Dose 200 MLS/HR; Start 04/16/17 at 21:00 Hydrocortisone (Solu-Cortef) 25 mg TID IV Last administered on 04/22/17 20:55 ; Admin Dose 25 MG; Start 04/16/17 at 13:00 Amiodarone HCl (Cordarone) 200 mg BID GTB Last administered on 04/22/17 20:55 ; Admin Dose 200 MG; Start 04/16/17 at 13:00 Diltiazem HCl (Cardizem Iv) 5 mg Q1H PRN IV AFIB GREATER THAN 110 Last administered on 04/17/17 16:41; Admin Dose 5 MG; Start 04/16/17 at 13:00 Enoxaparin Sodium (Lovenox) 40 mg HS SC Last administered on 04/17/17 20:38; Admin Dose 40 MG; Start 04/17/17 at 21:00; Status Future Hold Heparin Sodium (Porcine) (Heparin (5000 Units/0.5 ml)) 5,000 unit BID SC Last administered on 04/22/17 21:39; Admin Dose 5,000 UNIT; Start 04/18/17 at 16:22 Acetaminophen/ Hydrocodone Bitart ([place] (5/325)) 2 tab Q4H PRN NGT MODERATE PAIN LEVEL 4-6 Last administered on 04/20/17 01:47; Admin Dose 2 TAB; Start 04/18 at 17:30 Citalopram Hydrobromide (Celexa) 20 mg DAILY NGT Last administered on 09:02; Admin Dose 20 MG; Start 04/19/17 at 09:00 Hydralazine HCl 20 mg 20 mg Q6H PRN IV sbp ABOVE 160 Last administered on 12:09; Admin Dose 20 MG; Start 04/18/17 at 18:30 Caspofungin 50 mg/ Sodium Chloride 250 ml @ 250 mls/hr Q24H IV Last administered on 04/22/17 09:01; Admin Dose 250 MLS/HR; Start 04/21/17 at 10:00 Vancomycin HCl 100 ml @ 100 mls/hr Q36H IVPB Last administered on 04/23/17 05 :59; Admin Dose 100 MLS/HR; Start 04/21/17 at 17:00 Meropenem/Sodium Chloride (Merrem 1 Gm/50 ml (Pmx)) 50 ml @ 200 mls/hr Q12 IVPB Last administered on 04/22/17 21:38; Admin Dose 200 MLS/HR; Start at 21:00 Chlorhexidine Gluconate (Peridex) 15 ml BID MT Last administered on 04/22/17 20:55; Admin Dose 15 ML; Start 04/22/17 at 21:00 Vitamin A/Vitamin D (Vitamin A & D Oint) 1 applic TID TOP Last administered on 04/22/17 20:56; Admin Dose 1 APPLIC; Start 04/22/17 at 21:00 Vitamin A/Vitamin D (Vitamin A & D Oint) 1 applic TID PRN TOP DRYNESS Last administered on 04/22/17 15:29; Admin Dose 1 APPLIC; Start 04/22/17 at 15:00 Acetaminophen/ Hydrocodone Bitart ([place] (5/325)) 1 tab Q6H GTB Last administered on 04/23/17 04:18; Admin Dose 1 TAB; Start 04/22/17 at 21:30 FRANCISCO BLACKWOOD MD Apr 23, 2017 08:25
--- NOTE | 2017-04-23 08:28 | PN ---
Date/Time of Note Date/Time of Note DATE: 04/23/17 TIME: 08:26 Assessment/Plan VTE Prophylaxis VTE Prophylaxis Intervention: other Lines/Catheters IV Catheter Type (from Nrsg): PICC Line Central line still needed: Yes Urinary Cath still in place: Yes Reason Cath still needed: other (indicate) Assessment/Plan Chief Complaint/Hosp Course 1. Status post code arrest -Etiology was respiratory due to hypoxemia -Patient currently stable on ventilatory support -Monitor closely 2. Nonoliguric keyonna. With previously normal baseline creatinine. Etiology is likely secondary to septic KEYONNA with possible ATN -Renal function has been stable, -Continue treatment plan. Supportive care renally dose meds avoid nephrotoxins -Follow-up renal panel - 3. Sepsis, status post shock. Etiology is likely secondary to aspiration pneumonia, -Patient currently off pressors. Remains on antibiotics - Patient's blood cultures have been reviewed. Continue current treatment plan Follow-up with infectious disease 3. Ventilator dependent respiratory failure. etiology secondary to pneumonia, CHF -Vent settings and ABG have been reviewed -Follow-up with pulmonary -We will place ENT consult for evaluation of possible trach 4. Volume overload. Etiology likely secondary to sepsis capillary leak. Possible diastolic heart failure. -Continue Lasix 5. Elevated troponin. Possible non-STEMI type II. We will continue to monitor follow-up with cardiology 6. History of adrenal insufficiency. -Patient currently on stress steroids, -Appreciate endocrinology evaluation 7. Acute encephalopathy etiologies toxic metabolic, possible anoxic injury. Mental status is improving, patient following commands CT scan showed no acute finding Appreciate Dr. Ellis evaluation -Continue to monitor closely 8. possible acute cholecystitis -Patient's HIDA scan was positive - cholecystostomy drain was not placed due to insufficient fluid. -No plan for drain placement at this time. I discussed case with general surgery Appreciate surgery's evaluation. 9. Hypothyroidism continue Synthroid 10. Anemia. -Hemoglobin levels have declined, will repeat H&H level. Consider transfusion 11. Mineral bone disorder will monitor calcium phosphorus levels 12. h/o tongue cancer with resection 13. History of diastolic heart failure/coronary disease -Continue medical management 14. Leukocytosis. -Etiology is likely secondary sepsis, steroids. -Slowly improving as steroids are being weaned down - Follow-up with infectious disease. 15. Hypomagnesemia. Continue to monitor and replete as needed 16. Left upper extremity DVT. Patient's on heparin and aspirin. Continue to monitor 17. Dysphagia status post PEG -Resume tube feedings, if no further episodes of emesis I spent greater than 40 minutes of critical care time with this pt Problems: Subjective 24 Hr Interval Summary Free Text/Dictation Patient critically ill but stable No events overnight Exam/Review of Systems Vital Signs Vitals Vital Signs Date Time Temp Pulse Resp B/P Pulse Ox O2 Delivery O2 Flow Rate FiO2 04/23/17 08:00 98.6 91 20 130/67 100 Mechanical Ventilator 04/23/17 05:27 30 04/21/17 16:12 6.0 Intake and Output 04/22/17 04/22/17 04/23/17 15:00 23:00 07:00 Intake Total 965 ml 490 ml 310 ml Output Total 250 ml 390 ml 276 ml Balance 715 ml 100 ml 34 ml Exam HEENT: Head is normocephalic. NECK: Supple. HEART: Irregular LUNGS: Show diminished breath sounds at base. ABDOMEN: Soft, nontender to palpation without rebound or guarding. EXTREMITIES: Negative for clubbing, cyanosis. Positive edema, DERMATOLOGIC: No rashes. MUSCULOSKELETAL: No joint effusions, positive wounds. NEUROLOGIC: No change in exam. Results Result Diagram: 04/23/17 0430 04/23/17 0430 Results 24 hrs Laboratory Tests Test 04/22/17 11:40 04/22/17 13:45 04/22/17 17:11 04/23/17 00:25 Bedside Glucose 163 168 145 Hemoglobin 7.7 L Hematocrit 23.3 L Test 04/23/17 04:30 04/23/17 06:06 White Blood Count 19.7 H Red Blood Count 2.30 L Hemoglobin 7.6 L Hematocrit 24.3 L Mean Corpuscular Volume 105.7 H Mean Corpuscular Hemoglobin 33.0 Mean Corpuscular Hemoglobin Concent 31.3 L Red Cell Distribution Width 14.9 H Platelet Count 367 Mean Platelet Volume 11.6 H Neutrophils % 88.0 H Lymphocytes % 3.3 L Monocytes % 5.5 Eosinophils % 0.0 Basophils % 0.1 Nucleated Red Blood Cells % 0.0 Neutrophils # 17.3 H Lymphocytes # 0.7 L Monocytes # 1.1 H Eosinophils # 0.0 Basophils # 0.0 Nucleated Red Blood Cells # 0.0 Sodium Level 142 Potassium Level 3.4 L Chloride Level 112 H Carbon Dioxide Level 25 Anion Gap 8 Blood Urea Nitrogen 66 H Creatinine 1.38 H Glucose Level 132 Calcium Level 8.2 L Phosphorus Level 3.7 Magnesium Level 2.2 Bedside Glucose 140 Medications Medications Current Medications Norepinephrine/ Dextrose (Levophed/D5W) 500 ml @ 0 mls/hr TITRATE IV Last administered on 04/14/17 10:24; Admin Dose 18.75 MLS/HR; Start 04/11/17 at 12:30 Aspirin (Aspirin) 325 mg DAILY NGT Last administered on 04/22/17 09:02; Admin Dose 325 MG; Start 04/12/17 at 09:00 Metoprolol Tartrate (Lopressor) 25 mg BID NGT Last administered on 04/22/17 20 :55; Admin Dose 25 MG; Start 04/11/17 at 21:00 Metoprolol Tartrate (Lopressor) 5 mg Q4H PRN IV HR>110 Hold SBP<110 Last administered on 04/20/17 17:36; Admin Dose 5 MG; Start 04/11/17 at 13:30 Lansoprazole 30 mg 30 mg DAILY GTB Last administered on 04/22/17 09:02; Admin Dose 30 MG; Start 04/12/17 at 09:00 Phenylephrine HCl/ Dextrose (Chuy-Syneph/D5W) 500 ml @ 0 mls/hr TITRATE IV Last administered on 04/12/17 02:52; Admin Dose 75 MLS/HR; Start 04/11/17 at 16:00 Miscellaneous Information 1 ea NOTE XX ; Start 04/11/17 at 16:30 Glucose (Glutose) 15 gm Q15M PRN PO DECREASED GLUCOSE; Start 04/11/17 at 16:30 Glucose (Glutose) 22.5 gm Q15M PRN PO DECREASED GLUCOSE; Start 04/11/17 at 16: 30 Dextrose (D50w Syringe) 25 ml Q15M PRN IV DECREASED GLUCOSE Last administered on 04/12/17 23:56; Admin Dose 25 ML; Start 04/11/17 at 16:30 Dextrose (D50w Syringe) 50 ml Q15M PRN IV DECREASED GLUCOSE; Start 04/11/17 at 16:30 Glucagon (Glucagen) 1 mg Q15M PRN IM DECREASED GLUCOSE; Start 04/11/17 at 16:30 Glucose 15 gm 15 gm Q15M PRN BUCCAL DECREASED GLUCOSE; Start 04/11/17 at 16:30 Midazolam HCl 50 ml @ 1 mls/hr TITRATE IV Last administered on 04/13/17 04:30; Admin Dose 2 MLS/HR; Start 04/11/17 at 23:30 Fentanyl (Sublimaze) 100 ml @ 0.5 mls/hr TITRATE IV Last administered on 02:48; Admin Dose 0.5 MLS/HR; Start 04/12/17 at 09:30 Metoclopramide HCl (Reglan) 10 mg Q6 IV Last administered on 04/23/17 06:01; Admin Dose 10 MG; Start 04/12/17 at 18:00 Insulin Aspart (Novolog Insulin Pen) NOVOLOG *MILD* ALGORI... Q6H SC Last administered on 04/23/17 00:28; Admin Dose 1 UNIT; Start 04/15/17 at 00:00 Metronidazole (Flagyl) 500 mg Q8 NGT Last administered on 04/23/17 06:01; Admin Dose 500 MG; Start 04/15/17 at 14:00 IV Flush 10 ml 10 ml PRN PRN IV FLUSH LINE; Start 04/15/17 at 13:00 Ciprofloxacin/ Dextrose (Cipro Ivpb) 200 ml @ 200 mls/hr Q12 IVPB Last administered on 04/22/17 20:53; Admin Dose 200 MLS/HR; Start 04/16/17 at 21:00 Hydrocortisone (Solu-Cortef) 25 mg TID IV Last administered on 04/22/17 20:55 ; Admin Dose 25 MG; Start 04/16/17 at 13:00 Amiodarone HCl (Cordarone) 200 mg BID GTB Last administered on 04/22/17 20:55 ; Admin Dose 200 MG; Start 04/16/17 at 13:00 Diltiazem HCl (Cardizem Iv) 5 mg Q1H PRN IV AFIB GREATER THAN 110 Last administered on 04/17/17 16:41; Admin Dose 5 MG; Start 04/16/17 at 13:00 Enoxaparin Sodium (Lovenox) 40 mg HS SC Last administered on 04/17/17 20:38; Admin Dose 40 MG; Start 04/17/17 at 21:00; Status Future Hold Heparin Sodium (Porcine) (Heparin (5000 Units/0.5 ml)) 5,000 unit BID SC Last administered on 04/22/17 21:39; Admin Dose 5,000 UNIT; Start 04/18/17 at 16:22 Acetaminophen/ Hydrocodone Bitart ([place] (5/325)) 2 tab Q4H PRN NGT MODERATE PAIN LEVEL 4-6 Last administered on 04/20/17 01:47; Admin Dose 2 TAB; Start 04/18 at 17:30 Citalopram Hydrobromide (Celexa) 20 mg DAILY NGT Last administered on 09:02; Admin Dose 20 MG; Start 04/19/17 at 09:00 Hydralazine HCl 20 mg 20 mg Q6H PRN IV sbp ABOVE 160 Last administered on 12:09; Admin Dose 20 MG; Start 04/18/17 at 18:30 Caspofungin 50 mg/ Sodium Chloride 250 ml @ 250 mls/hr Q24H IV Last administered on 04/22/17 09:01; Admin Dose 250 MLS/HR; Start 04/21/17 at 10:00 Vancomycin HCl 100 ml @ 100 mls/hr Q36H IVPB Last administered on 04/23/17 05 :59; Admin Dose 100 MLS/HR; Start 04/21/17 at 17:00 Meropenem/Sodium Chloride (Merrem 1 Gm/50 ml (Pmx)) 50 ml @ 200 mls/hr Q12 IVPB Last administered on 04/22/17 21:38; Admin Dose 200 MLS/HR; Start at 21:00 Chlorhexidine Gluconate (Peridex) 15 ml BID MT Last administered on 04/22/17 20:55; Admin Dose 15 ML; Start 04/22/17 at 21:00 Vitamin A/Vitamin D (Vitamin A & D Oint) 1 applic TID TOP Last administered on 04/22/17 20:56; Admin Dose 1 APPLIC; Start 04/22/17 at 21:00 Vitamin A/Vitamin D (Vitamin A & D Oint) 1 applic TID PRN TOP DRYNESS Last administered on 04/22/17 15:29; Admin Dose 1 APPLIC; Start 04/22/17 at 15:00 Acetaminophen/ Hydrocodone Bitart ([place] (5/325)) 1 tab Q6H GTB Last administered on 04/23/17t 04:18; Admin Dose 1 TAB; Start 04/22/17 at 21:30 Potassium Chloride (Potassium Chloride Pwd/Soln) 40 meq ONCE ONCE NGT ; Start 04/23/17 at 08:30; Stop 04/23/17 at 08:31; Status NINA SILVA DO Apr 23, 2017 08:27
[2017-04-23] MEDS ORDERED: POTASSIUM CHLORIDE 20 MEQ POWDER FOR ORAL SOLN NGT ONE (08:30)
[2017-04-23] MEDS: AMIODARONE 200 MG TAB GTB SCH ×2 (09:01→20:00)
[2017-04-23] MEDS: ASPIRIN 325 MG TAB NGT SCH (09:05)
[2017-04-23] MEDS: CITALOPRAM 20 MG TAB NGT SCH (09:06)
[2017-04-23] MEDS: METOPROLOL 25 MG TAB NGT SCH ×2 (09:06→20:00)
[2017-04-23] MEDS: CHLORHEXIDINE GLUCONATE 15 ML UD CUP MT SCH ×2 (09:06→20:01)
[2017-04-23] MEDS: CIPROFLOXACIN 400MG/D5W 200 ML IVPB SCH ×2 (09:06→21:22)
[2017-04-23] MEDS: HYDROCORTISONE 100 MG INJ IV SCH ×3 (09:07→20:28)
[2017-04-23] MEDS: VITAMIN A & D 5 GM OINT PACKET TOP SCH ×3 (09:11→20:28)
[2017-04-23] MEDS: HEPARIN 5,000 UNIT/0.5 ML VIAL SC SCH ×2 (09:17→20:39)
[2017-04-23] MEDS: MEROPENEM 1 GM/50ML(PMX) 50 ML IVPB SCH ×2 (10:02→20:28)
[2017-04-23] MEDS: LANSOPRAZOLE 30 MG CAP GTB SCH (10:02)
--- NOTE | 2017-04-23 10:50 | PN ---
Date/Time of Note Date/Time of Note DATE: 04/23/17 TIME: 10:32 Assessment/Plan Lines/Catheters IV Catheter Type (from [facility]): PICC Line Latif in Place (from [facility]): Yes Assessment/Plan Chief Complaint/Hosp Course 1. Cholelithiasis ? cholecystitis: Ct abd: sludge and small stones in the gallbladder. No gallbladder wall thickening is noted with some pericholecystic fluid is present. Patient off pressors; GT/OGT no output; HIDA positive; IR drain placement cancelled by radiologist since US without evidence of infection. Therefore, Dr. Guadalupe believes the HIDA is false positive. -No surgical intervention required at this time -will await medical optimization 2. Pneumonia: Recurrent; no fevers; intubated; less secretion sputum cx: PSEUDOMONAS AERUGINOSA, K PNEUMO ESBL, NASRIN GLABRATA; appears comfortable -pulmonary toilet -abx per ID -diuresis -bipap 3. Vent dependent respiratory failure: 2/2 aspiration PNA+ CHF;reintubated, coded 04/21; appears comfortable -as above 4. Septic shock: improved -on abx -supportive 5. Uncontrolled Afib: s/p amiodarone drip, on oral amiodarone Now SR -medical optimization -lovenox 6. Elevated troponin:NSTEMI; septic shock/demand ischemia -trend 7. Leukocytosis with lactic acidosis: 2/2 pneumonia vs. steroids vs. other ( urine, blood cultures negative); Improving. -abx -judicious fluid management -supportive measures -poor prognosis 8. KEYONNA: likely 2/2 septic shock;cr increased; s/p code yesterday -judicious fluid management -avoid nephrotoxic agents 9. CHF: -judicious fluid management -medical optimization 10. Adrenal Insufficiency -solucortef 11. Hypomagnesemia: normalized -electrolyte optimization -monitor for cardiac abnormalities 12. Hypothyroidism -cont. synthroid 13. Macrocytic anemia: chronic vs. dilutional vs. acute bleed vs. b12/folate deficiency; h/h stable; noted gtube output coffee ground yesterday (? bleeding from mouth); h/h lower today -monitor -Transfuse as needed 14. Transaminitis: likely 2/2 septic shock vs. cholecystitis; normalized -trend, monitor 15. Diarrhea: 2/2 abx vs. enteritis: resolved -start probiotics -stool cultures 16. Thrombocytosis: 2/2 inflammatory vs. drug induced vs. other; normalized -monitor -bleeding precautions -supportive 17. Encephalopathy: 2/2 toxic metabolic vs. anoxic injury; CT: No acute intracranial hemorrhage or mass effect. Mild chronic microvascular disease and intracranial atherosclerosis; more alert and communicative; EEG shows no seizure activity -supportive 18. Bilateral upper extremity edema: likely 2/2 decreased movement vs. thrombosis; initial doppler negative, repeat doppler left arm (+) Thrombus -elevate extremities -supportive -anticoagulation 19. Hypoalbuminemia: 2/2 malnutrition +/- inflammation; decreased; tolerating tf -nutrition optimization -as above Patient seen and examined in collaboration with Dr. Justus Antonio Problems: Subjective 24 Hr Interval Summary Alert, responsive. Intubated, comfortable on vent. No fevers, no abdominal pain , no cp, palpitations, n/v/d. tube feeding continued. tolerating tf. weaning off vent Exam/Review of Systems Vital Signs Vitals Vital Signs Date Time Temp Pulse Resp B/P Pulse Ox O2 Delivery O2 Flow Rate FiO2 04/23/17 09:34 30 04/23/17 08:00 91 04/23/17 08:00 98.6 20 130/67 100 Mechanical Ventilator 04/21/17 16:12 6.0 Intake and Output 04/22/17 04/22/17 04/23/17 15:00 23:00 07:00 Intake Total 965 ml 490 ml 310 ml Output Total 250 ml 390 ml 276 ml Balance 715 ml 100 ml 34 ml Exam Free Text/Dictation Constitutional: Awake, appears comfortable Head: atraumatic, normocephalic Eyes: PERRL, nl lids, nl sclera ENMT: No mucosa pink and moist (pink and dry), reintubated Neck: non-tender, supple Respiratory: Increased effort, no wheezing Cardiovascular: nl pulses, regular rate and rhythm, NSR, Gastrointestinal: soft, GT tubes site no erythema, no drainage, min tenderness, Genitourinary - Female: nl external genitalia Musculoskeletal: nl extremities to inspection Extremities: normal pulses, bilateral upper/lower extremity edema Neurological: more responsive Skin: nl turgor, No rash or lesions Lymph: nl lymph nodes Results Result Diagram: 04/23/1742904/23/17429 ADDISON FREGOSO NP Apr 23, 2017 10:42
--- NOTE | 2017-04-23 11:02 | CONS ---
Date/Time of Note Date/Time of Note DATE: 04/23/17 TIME: 11:01 Consult Date/Type/Reason Admit Date/Time Apr 11, 2017 at 11:28 Initial Consult Date 04/12/17 Type of Consultation: Pulmonary Ordering Provider: NINA MACIEL DO Subjective Patient awake alert oriented this morning follow commands. Objective Vital Signs Date Time Temp Pulse Resp B/P Pulse Ox O2 Delivery O2 Flow Rate FiO2 04/23/17 09:34 30 04/23/17 08:00 91 04/23/17 08:00 98.6 20 130/67 100 Mechanical Ventilator 04/21/17 16:12 6.0 Intake and Output 04/22/17 04/22/17 04/23/17 14:59 22:59 06:59 Intake Total 965 ml 420 ml 380 ml Output Total 215 ml 375 ml 326 ml Balance 750 ml 45 ml 54 ml Exam GENERAL: Chronically ill-appearing elderly lady on mechanical ventilation, awake and alert follows simple commands VITAL SIGNS: per chart NECK: Supple. No JVD or lymphadenopathy. Stoma site has dressing in place CARDIAC EXAM: S1, S2. No added sounds or murmurs. CHEST: Diminished air entry bilaterally poor effort ABDOMEN: Soft, nontender. No guarding or rebound. EXTREMITIES: No cyanosis, clubbing edema +2 NEUROLOGIC: Generalized weakness. Results/Medications Result Diagram: 04/23/17 0430 04/23/17 0430 Results 24 hrs Laboratory Tests Test 04/22/17 11:40 04/22/17 13:45 04/22/17 17:11 04/23/17 00:25 Bedside Glucose 163 168 145 Hemoglobin 7.7 L Hematocrit 23.3 L Test 04/23/17 04:30 04/23/17 06:06 White Blood Count 19.7 H Red Blood Count 2.30 L Hemoglobin 7.6 L Hematocrit 24.3 L Mean Corpuscular Volume 105.7 H Mean Corpuscular Hemoglobin 33.0 Mean Corpuscular Hemoglobin Concent 31.3 L Red Cell Distribution Width 14.9 H Platelet Count 367 Mean Platelet Volume 11.6 H Neutrophils % 88.0 H Lymphocytes % 3.3 L Monocytes % 5.5 Eosinophils % 0.0 Basophils % 0.1 Nucleated Red Blood Cells % 0.0 Neutrophils # 17.3 H Lymphocytes # 0.7 L Monocytes # 1.1 H Eosinophils # 0.0 Basophils # 0.0 Nucleated Red Blood Cells # 0.0 Sodium Level 142 Potassium Level 3.4 L Chloride Level 112 H Carbon Dioxide Level 25 Anion Gap 8 Blood Urea Nitrogen 66 H Creatinine 1.38 H Glucose Level 132 Calcium Level 8.2 L Phosphorus Level 3.7 Magnesium Level 2.2 Bedside Glucose 140 Medications Current Medications Norepinephrine/ Dextrose (Levophed/D5W) 500 ml @ 0 mls/hr TITRATE IV Last administered on 04/14/17 10:24; Admin Dose 18.75 MLS/HR; Start 04/11/17 at 12:30 Aspirin (Aspirin) 325 mg DAILY NGT Last administered on 04/23/17 09:05; Admin Dose 325 MG; Start 04/12/17 at 09:00 Metoprolol Tartrate (Lopressor) 25 mg BID NGT Last administered on 04/23/17 09 :06; Admin Dose 25 MG; Start 04/11/17 at 21:00 Metoprolol Tartrate (Lopressor) 5 mg Q4H PRN IV HR>110 Hold SBP<110 Last administered on 04/20/17 17:36; Admin Dose 5 MG; Start 04/11/17 at 13:30 Lansoprazole 30 mg 30 mg DAILY GTB Last administered on 04/23/17 10:02; Admin Dose 30 MG; Start 04/12/17 at 09:00 Phenylephrine HCl/ Dextrose ([place]-Syneph/D5W) 500 ml @ 0 mls/hr TITRATE IV Last administered on 04/12/17 02:52; Admin Dose 75 MLS/HR; Start 04/11/17 at 16:00 Miscellaneous Information 1 ea NOTE XX ; Start 04/11/17 at 16:30 Glucose (Glutose) 15 gm Q15M PRN PO DECREASED GLUCOSE; Start 04/11/17 at 16:30 Glucose (Glutose) 22.5 gm Q15M PRN PO DECREASED GLUCOSE; Start 04/11/17 at 16: 30 Dextrose (D50w Syringe) 25 ml Q15M PRN IV DECREASED GLUCOSE Last administered on 04/12/17 23:56; Admin Dose 25 ML; Start 04/11/17 at 16:30 Dextrose (D50w Syringe) 50 ml Q15M PRN IV DECREASED GLUCOSE; Start 04/11/17 at 16:30 Glucagon (Glucagen) 1 mg Q15M PRN IM DECREASED GLUCOSE; Start 04/11/17 at 16:30 Glucose 15 gm 15 gm Q15M PRN BUCCAL DECREASED GLUCOSE; Start 04/11/17 at 16:30 Midazolam HCl 50 ml @ 1 mls/hr TITRATE IV Last administered on 04/13/17 04:30; Admin Dose 2 MLS/HR; Start 04/11/17 at 23:30 Fentanyl (Sublimaze) 100 ml @ 0.5 mls/hr TITRATE IV Last administered on 02:48; Admin Dose 0.5 MLS/HR; Start 04/12/17 at 09:30 Metoclopramide HCl (Reglan) 10 mg Q6 IV Last administered on 04/23/17 06:01; Admin Dose 10 MG; Start 04/12/17 at 18:00 Insulin Aspart (Novolog Insulin Pen) NOVOLOG *MILD* [place]I... Q6H SC Last administered on 04/23/17 00:28; Admin Dose 1 UNIT; Start 04/15/17 at 00:00 Metronidazole (Flagyl) 500 mg Q8 NGT Last administered on 04/23/17 06:01; Admin Dose 500 MG; Start 04/15/17 at 14:00 IV Flush 10 ml 10 ml PRN PRN IV FLUSH LINE; Start 04/15/17 at 13:00 Ciprofloxacin/ Dextrose (Cipro Ivpb) 200 ml @ 200 mls/hr Q12 IVPB Last administered on 04/23/17 09:06; Admin Dose 200 MLS/HR; Start 04/16/17 at 21:00 Hydrocortisone (Solu-Cortef) 25 mg TID IV Last administered on 04/23/17 09:07 ; Admin Dose 25 MG; Start 04/16/17 at 13:00 Amiodarone HCl (Cordarone) 200 mg BID GTB Last administered on 04/23/17 09:01 ; Admin Dose 200 MG; Start 04/16/17 at 13:00 Diltiazem HCl (Cardizem Iv) 5 mg Q1H PRN IV AFIB GREATER THAN 110 Last administered on 04/17/17 16:41; Admin Dose 5 MG; Start 04/16/17 at 13:00 Enoxaparin Sodium (Lovenox) 40 mg HS SC Last administered on 04/17/17 20:38; Admin Dose 40 MG; Start 04/17/17 at 21:00; Status Future Hold Heparin Sodium (Porcine) (Heparin (5000 Units/0.5 ml)) 5,000 unit BID SC Last administered on 04/23/17 09:17; Admin Dose 5,000 UNIT; Start 04/18/17 at 16:22 Acetaminophen/ Hydrocodone Bitart ([place] (5/325)) 2 tab Q4H PRN NGT MODERATE PAIN LEVEL 4-6 Last administered on 04/20/17 01:47; Admin Dose 2 TAB; Start 04/18 at 17:30 Citalopram Hydrobromide (Celexa) 20 mg DAILY NGT Last administered on 09:06; Admin Dose 20 MG; Start 04/19/17 at 09:00 Hydralazine HCl 20 mg 20 mg Q6H PRN IV sbp ABOVE 160 Last administered on 12:09; Admin Dose 20 MG; Start 04/18/17 at 18:30 Caspofungin 50 mg/ Sodium Chloride 250 ml @ 250 mls/hr Q24H IV Last administered on 04/22/17 09:01; Admin Dose 250 MLS/HR; Start 04/21/17 at 10:00 Vancomycin HCl 100 ml @ 100 mls/hr Q36H IVPB Last administered on 04/23/17 05 :59; Admin Dose 100 MLS/HR; Start 04/21/17 at 17:00 Meropenem/Sodium Chloride (Merrem 1 Gm/50 ml (Pmx)) 50 ml @ 200 mls/hr Q12 IVPB Last administered on 04/23/17 10:02; Admin Dose 200 MLS/HR; Start at 21:00 Chlorhexidine Gluconate (Peridex) 15 ml BID MT Last administered on 04/23/17 09:06; Admin Dose 15 ML; Start 04/22/17 at 21:00 Vitamin A/Vitamin D (Vitamin A & D Oint) 1 applic TID TOP Last administered on 04/23/17 09:11; Admin Dose 1 APPLIC; Start 04/22/17 at 21:00 Vitamin A/Vitamin D (Vitamin A & D Oint) 1 applic TID PRN TOP DRYNESS Last administered on 04/22/17 15:29; Admin Dose 1 APPLIC; Start 04/22/17 at 15:00 Acetaminophen/ Hydrocodone Bitart ([place] (5/325)) 1 tab Q6H GTB Last administered on 04/23/17 10:03; Admin Dose 1 TAB; Start 04/22/17 at 21:30 Assessment/Plan Chief Complaint/Hosp Course IMP: 1. Status post septic Shock--likely due to multilobar aspiration pneumonia vs. HCAP possibly secondary to acute cholecystitis also 2. Multifocal pneumonia aspiration vs.HCAP 3. Hypercapnic Respiratory Failure--likely due to critical illness myopathy/ neuropathy 4. Status post lactic acidosis. Persistent leukocytosis, 5. Demand Ischemia 6. Cholecystitis, pending percutaneous drainage 7. Dysphagia continues tube feeding RECS: 1. Continue mechanical ventilation. Patient has been reluctant to proceed with tracheostomy. Given improvement in neurological status I will try SIMV. 2. Oral care. 3. ABG: Monitor PCO2 4. Tube feeding 40 cc an hour 5. Continue antibiotics 6. Continue physical therapy Critical care time 40 minutes. Case d/w RN and patient's Problems: DARWIN CRAWFORD MD, [facility] Apr 23, 2017 11:02
[2017-04-23] MEDS: CASPOFUNGIN 50 MG in NS 250 ML IV SCH (11:07)
--- NOTE | 2017-04-23 11:26 | CONS ---
Date/Time of Note Date/Time of Note DATE: 04/23/17 TIME: 11:24 Assessment/Plan Assessment/Plan Chief Complaint/Hosp Course Acute events overnight patient is awake, looks comfortable on vent, complaining of abdominal pain, at bedside Temperature 98.2 pulse 87 respirations 22 blood pressure 143/70 saturation 100 on 30 FiO2 WBC 16.9 H&H 7.9 24.5 platelets 389 neutrophils 83.2 BN 68 creatinine 1.27 Microbiology: Blood culture on April 20 growing yeast, repeat sputum culture on April 21 growing Ramonita species not albicans and Ramonita glabrata Indwelling's: Endotracheal tube, NG tube, Latif, PICC line placed on April 15 Antibiotics: Vancomycin, Cancidas, meropenem, Cipro Physical examination: Well-developed fragile chronically ill-appearing elderly woman who is intubated, in no distress. Head atraumatic, normocephalic sclera nonicteric. Neck is supple. Chest rise symmetrical breath sounds with scattered rhonchi. Abdomen soft, bowel tones present. Extremities with bilateral edema. Assessment: 1. Fungemia secondary to #2 2. Pneumonia with repeat sputum culture growing yeast 3. Resolving sepsis, status post shock 4. Acute on chronic respiratory failure, status post 3 intubated 5. History of tongue cancer 6. Gallstones, no evidence of cholecystitis 7. History of C. difficile colitis Plan: Continue Cancidas, Merrem and Flagyl, DC other antibiotics, continue vent management as per pulmonary recommendations, repeat blood cultures. Discussed with staff and at bedside Problems: Consultation Date/Type/Reason Admit Date/Time Apr 11, 2017 at 11:28 Initial Consult Date 04/12/17 Type of Consultation: ID Referring Provider: NINA MACIEL DO Exam/Review of Systems Vital Signs Vitals Vital Signs Date Time Temp Pulse Resp B/P Pulse Ox O2 Delivery O2 Flow Rate FiO2 04/23/17 10:00 90 20 148/77 99 Mechanical Ventilator 04/23/17 09:34 30 04/23/17 08:00 98.6 04/21/17 16:12 6.0 Intake and Output 04/22/17 04/22/17 04/23/17 15:00 23:00 07:00 Intake Total 965 ml 490 ml 310 ml Output Total 250 ml 390 ml 276 ml Balance 715 ml 100 ml 34 ml Results Result Diagram: 04/23/17 0430 04/23/17 0430 Results 24 hrs Laboratory Tests Test 04/22/17 11:40 04/22/17 13:45 04/22/17 17:11 04/23/17 00:25 Bedside Glucose 163 168 145 Hemoglobin 7.7 L Hematocrit 23.3 L Test 04/23/17 04:30 04/23/17 06:06 White Blood Count 19.7 H Red Blood Count 2.30 L Hemoglobin 7.6 L Hematocrit 24.3 L Mean Corpuscular Volume 105.7 H Mean Corpuscular Hemoglobin 33.0 Mean Corpuscular Hemoglobin Concent 31.3 L Red Cell Distribution Width 14.9 H Platelet Count 367 Mean Platelet Volume 11.6 H Neutrophils % 88.0 H Lymphocytes % 3.3 L Monocytes % 5.5 Eosinophils % 0.0 Basophils % 0.1 Nucleated Red Blood Cells % 0.0 Neutrophils # 17.3 H Lymphocytes # 0.7 L Monocytes # 1.1 H Eosinophils # 0.0 Basophils # 0.0 Nucleated Red Blood Cells # 0.0 Sodium Level 142 Potassium Level 3.4 L Chloride Level 112 H Carbon Dioxide Level 25 Anion Gap 8 Blood Urea Nitrogen 66 H Creatinine 1.38 H Glucose Level 132 Calcium Level 8.2 L Phosphorus Level 3.7 Magnesium Level 2.2 Bedside Glucose 140 Medications Medications Current Medications Norepinephrine/ Dextrose (Levophed/D5W) 500 ml @ 0 mls/hr TITRATE IV Last administered on 04/14/17 10:24; Admin Dose 18.75 MLS/HR; Start 04/11/17 at 12:30 Aspirin (Aspirin) 325 mg DAILY NGT Last administered on 04/23/17 09:05; Admin Dose 325 MG; Start 04/12/17 at 09:00 Metoprolol Tartrate (Lopressor) 25 mg BID NGT Last administered on 04/23/17 09 :06; Admin Dose 25 MG; Start 04/11/17 at 21:00 Metoprolol Tartrate (Lopressor) 5 mg Q4H PRN IV HR>110 Hold SBP<110 Last administered on 04/20/17 17:36; Admin Dose 5 MG; Start 04/11/17 at 13:30 Lansoprazole 30 mg 30 mg DAILY GTB Last administered on 04/23/17 10:02; Admin Dose 30 MG; Start 04/12/17 at 09:00 Phenylephrine HCl/ Dextrose ([place]-Syneph/D5W) 500 ml @ 0 mls/hr TITRATE IV Last administered on 04/12/17 02:52; Admin Dose 75 MLS/HR; Start 04/11/17 at 16:00 Miscellaneous Information 1 ea NOTE XX ; Start 04/11/17 at 16:30 Glucose (Glutose) 15 gm Q15M PRN PO DECREASED GLUCOSE; Start 04/11/17 at 16:30 Glucose (Glutose) 22.5 gm Q15M PRN PO DECREASED GLUCOSE; Start 04/11/17 at 16: 30 Dextrose (D50w Syringe) 25 ml Q15M PRN IV DECREASED GLUCOSE Last administered on 04/12/17 23:56; Admin Dose 25 ML; Start 04/11/17 at 16:30 Dextrose (D50w Syringe) 50 ml Q15M PRN IV DECREASED GLUCOSE; Start 04/11/17 at 16:30 Glucagon (Glucagen) 1 mg Q15M PRN IM DECREASED GLUCOSE; Start 04/11/17 at 16:30 Glucose 15 gm 15 gm Q15M PRN BUCCAL DECREASED GLUCOSE; Start 04/11/17 at 16:30 Midazolam HCl 50 ml @ 1 mls/hr TITRATE IV Last administered on 04/13/17 04:30; Admin Dose 2 MLS/HR; Start 04/11/17 at 23:30 Fentanyl (Sublimaze) 100 ml @ 0.5 mls/hr TITRATE IV Last administered on 02:48; Admin Dose 0.5 MLS/HR; Start 04/12/17 at 09:30 Metoclopramide HCl (Reglan) 10 mg Q6 IV Last administered on 04/23/17 06:01; Admin Dose 10 MG; Start 04/12/17 at 18:00 Insulin Aspart (Novolog Insulin Pen) NOVOLOG *MILD* ALGORI... Q6H SC Last administered on 04/23/17 00:28; Admin Dose 1 UNIT; Start 04/15/17 at 00:00 Metronidazole (Flagyl) 500 mg Q8 NGT Last administered on 04/23/17 06:01; Admin Dose 500 MG; Start 04/15/17 at 14:00 IV Flush 10 ml 10 ml PRN PRN IV FLUSH LINE; Start 04/15/17 at 13:00 Ciprofloxacin/ Dextrose (Cipro Ivpb) 200 ml @ 200 mls/hr Q12 IVPB Last administered on 04/23/17 09:06; Admin Dose 200 MLS/HR; Start 04/16/17 at 21:00 Hydrocortisone (Solu-Cortef) 25 mg TID IV Last administered on 04/23/17 09:07 ; Admin Dose 25 MG; Start 04/16/17 at 13:00 Amiodarone HCl (Cordarone) 200 mg BID GTB Last administered on 04/23/17 09:01 ; Admin Dose 200 MG; Start 04/16/17 at 13:00 Diltiazem HCl (Cardizem Iv) 5 mg Q1H PRN IV AFIB GREATER THAN 110 Last administered on 04/17/17 16:41; Admin Dose 5 MG; Start 04/16/17 at 13:00 Enoxaparin Sodium (Lovenox) 40 mg HS SC Last administered on 04/17/17 20:38; Admin Dose 40 MG; Start 04/17/17 at 21:00; Status Future Hold Heparin Sodium (Porcine) (Heparin (5000 Units/0.5 ml)) 5,000 unit BID SC Last administered on 04/23/17 09:17; Admin Dose 5,000 UNIT; Start 04/18/17 at 16:22 Acetaminophen/ Hydrocodone Bitart ([place] (5/325)) 2 tab Q4H PRN NGT MODERATE PAIN LEVEL 4-6 Last administered on 04/20/17 01:47; Admin Dose 2 TAB; Start 04/18 at 17:30 Citalopram Hydrobromide (Celexa) 20 mg DAILY NGT Last administered on 09:06; Admin Dose 20 MG; Start 04/19/17 at 09:00 Hydralazine HCl 20 mg 20 mg Q6H PRN IV sbp ABOVE 160 Last administered on 12:09; Admin Dose 20 MG; Start 04/18/17 at 18:30 Caspofungin 50 mg/ Sodium Chloride 250 ml @ 250 mls/hr Q24H IV Last administered on 04/23/17 11:07; Admin Dose 250 MLS/HR; Start 04/21/17 at 10:00 Vancomycin HCl 100 ml @ 100 mls/hr Q36H IVPB Last administered on 04/23/17 05 :59; Admin Dose 100 MLS/HR; Start 04/21/17 at 17:00 Meropenem/Sodium Chloride (Merrem 1 Gm/50 ml (Pmx)) 50 ml @ 200 mls/hr Q12 IVPB Last administered on 04/23/17 10:02; Admin Dose 200 MLS/HR; Start at 21:00 Chlorhexidine Gluconate (Peridex) 15 ml BID MT Last administered on 04/23/17 09:06; Admin Dose 15 ML; Start 04/22/17 at 21:00 Vitamin A/Vitamin D (Vitamin A & D Oint) 1 applic TID TOP Last administered on 04/23/17 09:11; Admin Dose 1 APPLIC; Start 04/22/17 at 21:00 Vitamin A/Vitamin D (Vitamin A & D Oint) 1 applic TID PRN TOP DRYNESS Last administered on 04/22/17 15:29; Admin Dose 1 APPLIC; Start 04/22/17 at 15:00 Acetaminophen/ Hydrocodone Bitart ([place] (5/325)) 1 tab Q6H GTB Last administered on 04/23/17 10:03; Admin Dose 1 TAB; Start 04/22/17 at 21:30 LORETO MCKEON NP Apr 23, 2017 11:26 administered on 04/23/17 10:03; Admin Dose 1 TAB; Start 04/22/17 at 21:30 LORETO MCKEON NP Apr 23, 2017 11:26
--- NOTE | 2017-04-23 17:08 | CONS ---
Date/Time of Note Date/Time of Note DATE: 04/23/17 TIME: 17:05 Assessment/Plan Assessment/Plan Problems: (1) Infectious disease Status: Acute Comment: Patient's on multiple antibiotics for infection. Patient does have positive blood cultures for yeast. Is a very concerning finding. As per infectious disease consult (2) Hypothyroidism Status: Chronic Comment: Patient remains stable on thyroid hormone replacement therapy. Continue same dose Qualifiers: Hypothyroidism type: acquired Qualified Code: E03.9 - Acquired hypothyroidism (3) Steroid dependence Status: Chronic Comment: Patient is on Solu-Cortef as replacement. Please note this is a stressful situation so attempts to wean at this time may be somewhat risky and in lead to hypotension. As such as my recommendation leave the dosing the same (4) Acute and chronic respiratory failure Status: Acute Comment: As per pulmonary. Worrisome prognosis Consultation Date/Type/Reason Admit Date/Time Apr 11, 2017 at 11:28 Initial Consult Date 04/14/17 Type of Consultation: Endocrinology Reason for Consultation Adrenal insufficiency-glucocorticoid; hypothyroidism Referring Provider: NINA MACIEL DO 24 HR Interval Summary Subjective hx not possible: pt non-verbal (Intubated) Exam/Review of Systems Vital Signs Vitals Vital Signs Date Time Temp Pulse Resp B/P Pulse Ox O2 Delivery O2 Flow Rate FiO2 04/23/17 16:00 90 04/23/17 15:40 26 98 30 04/23/17 15:00 159/81 Mechanical Ventilator 04/23/17 12:00 98.4 04/21/17 16:12 6.0 Intake and Output 04/22/17 04/22/17 04/23/17 15:00 23:00 07:00 Intake Total 965 ml 490 ml 410 ml Output Total 250 ml 390 ml 276 ml Balance 715 ml 100 ml 134 ml Exam Arousable opens eyes follows very simple commands ENMT: intubated Respiratory: crackles/rales Cardiovascular: nl pulses, regular rate and rhythm Results Result Diagram: 04/23/17 0430 04/23/17 0430 Results 24 hrs Laboratory Tests Test 04/22/17 17:11 04/23/17 00:25 04/23/17 04:30 04/23/17 06:06 Bedside Glucose 168 145 140 White Blood Count 19.7 H Red Blood Count 2.30 L Hemoglobin 7.6 L Hematocrit 24.3 L Mean Corpuscular Volume 105.7 H Mean Corpuscular Hemoglobin 33.0 Mean Corpuscular Hemoglobin Concent 31.3 L Red Cell Distribution Width 14.9 H Platelet Count 367 Mean Platelet Volume 11.6 H Neutrophils % 88.0 H Lymphocytes % 3.3 L Monocytes % 5.5 Eosinophils % 0.0 Basophils % 0.1 Nucleated Red Blood Cells % 0.0 Neutrophils # 17.3 H Lymphocytes # 0.7 L Monocytes # 1.1 H Eosinophils # 0.0 Basophils # 0.0 Nucleated Red Blood Cells # 0.0 Sodium Level 142 Potassium Level 3.4 L Chloride Level 112 H Carbon Dioxide Level 25 Anion Gap 8 Blood Urea Nitrogen 66 H Creatinine 1.38 H Glucose Level 132 Calcium Level 8.2 L Phosphorus Level 3.7 Magnesium Level 2.2 Test 04/23/17 12:41 Bedside Glucose 152 Medications Medications Current Medications Norepinephrine/ Dextrose (Levophed/D5W) 500 ml @ 0 mls/hr TITRATE IV Last administered on 04/14/17 10:24; Admin Dose 18.75 MLS/HR; Start 04/11/17 at 12:30 Aspirin (Aspirin) 325 mg DAILY NGT Last administered on 04/23/17 09:05; Admin Dose 325 MG; Start 04/12/17 at 09:00 Metoprolol Tartrate (Lopressor) 25 mg BID NGT Last administered on 04/23/17 09 :06; Admin Dose 25 MG; Start 04/11/17 at 21:00 Metoprolol Tartrate (Lopressor) 5 mg Q4H PRN IV HR>110 Hold SBP<110 Last administered on 04/20/17 17:36; Admin Dose 5 MG; Start 04/11/17 at 13:30 Lansoprazole 30 mg 30 mg DAILY GTB Last administered on 04/23/17 10:02; Admin Dose 30 MG; Start 04/12/17 at 09:00 Phenylephrine HCl/ Dextrose ([place]-Syneph/D5W) 500 ml @ 0 mls/hr TITRATE IV Last administered on 04/12/17 02:52; Admin Dose 75 MLS/HR; Start 04/11/17 at 16:00 Miscellaneous Information 1 ea NOTE XX ; Start 04/11/17 at 16:30 Glucose (Glutose) 15 gm Q15M PRN PO DECREASED GLUCOSE; Start 04/11/17 at 16:30 Glucose (Glutose) 22.5 gm Q15M PRN PO DECREASED GLUCOSE; Start 04/11/17 at 16: 30 Dextrose (D50w Syringe) 25 ml Q15M PRN IV DECREASED GLUCOSE Last administered on 04/12/17 23:56; Admin Dose 25 ML; Start 04/11/17 at 16:30 Dextrose (D50w Syringe) 50 ml Q15M PRN IV DECREASED GLUCOSE; Start 04/11/17 at 16:30 Glucagon (Glucagen) 1 mg Q15M PRN IM DECREASED GLUCOSE; Start 04/11/17 at 16:30 Glucose 15 gm 15 gm Q15M PRN BUCCAL DECREASED GLUCOSE; Start 04/11/17 at 16:30 Midazolam HCl 50 ml @ 1 mls/hr TITRATE IV Last administered on 04/13/17 04:30; Admin Dose 2 MLS/HR; Start 04/11/17 at 23:30 Fentanyl (Sublimaze) 100 ml @ 0.5 mls/hr TITRATE IV Last administered on 02:48; Admin Dose 0.5 MLS/HR; Start 04/12/17 at 09:30 Metoclopramide HCl (Reglan) 10 mg Q6 IV Last administered on 04/23/17 12:36; Admin Dose 10 MG; Start 04/12/17 at 18:00 Insulin Aspart (Novolog Insulin Pen) NOVOLOG *MILD* ALGORI... Q6H SC Last administered on 04/23/17 12:46; Admin Dose 1 UNIT; Start 04/15/17 at 00:00 Metronidazole (Flagyl) 500 mg Q8 NGT Last administered on 04/23/17 15:26; Admin Dose 500 MG; Start 04/15/17 at 14:00 IV Flush 10 ml 10 ml PRN PRN IV FLUSH LINE; Start 04/15/17 at 13:00 Ciprofloxacin/ Dextrose (Cipro Ivpb) 200 ml @ 200 mls/hr Q12 IVPB Last administered on 04/23/17 09:06; Admin Dose 200 MLS/HR; Start 04/16/17 at 21:00 Hydrocortisone (Solu-Cortef) 25 mg TID IV Last administered on 04/23/17 12:37 ; Admin Dose 25 MG; Start 04/16/17 at 13:00 Amiodarone HCl (Cordarone) 200 mg BID GTB Last administered on 04/23/17 09:01 ; Admin Dose 200 MG; Start 04/16/17 at 13:00 Diltiazem HCl (Cardizem Iv) 5 mg Q1H PRN IV AFIB GREATER THAN 110 Last administered on 04/17/17 16:41; Admin Dose 5 MG; Start 04/16/17 at 13:00 Enoxaparin Sodium (Lovenox) 40 mg HS SC Last administered on 04/17/17 20:38; Admin Dose 40 MG; Start 04/17/17 at 21:00; Status Future Hold Heparin Sodium (Porcine) (Heparin (5000 Units/0.5 ml)) 5,000 unit BID SC Last administered on 04/23/17 09:17; Admin Dose 5,000 UNIT; Start 04/18/17 at 16:22 Acetaminophen/ Hydrocodone Bitart ([place] (5/325)) 2 tab Q4H PRN NGT MODERATE PAIN LEVEL 4-6 Last administered on 04/20/17 01:47; Admin Dose 2 TAB; Start 04/18 at 17:30 Citalopram Hydrobromide (Celexa) 20 mg DAILY NGT Last administered on 09:06; Admin Dose 20 MG; Start 04/19/17 at 09:00 Hydralazine HCl 20 mg 20 mg Q6H PRN IV sbp ABOVE 160 Last administered on 12:09; Admin Dose 20 MG; Start 04/18/17 at 18:30 Caspofungin 50 mg/ Sodium Chloride 250 ml @ 250 mls/hr Q24H IV Last administered on 04/23/17 11:07; Admin Dose 250 MLS/HR; Start 04/21/17 at 10:00 Vancomycin HCl 100 ml @ 100 mls/hr Q36H IVPB Last administered on 04/23/17 05 :59; Admin Dose 100 MLS/HR; Start 04/21/17 at 17:00 Meropenem/Sodium Chloride (Merrem 1 Gm/50 ml (Pmx)) 50 ml @ 200 mls/hr Q12 IVPB Last administered on 04/23/17 10:02; Admin Dose 200 MLS/HR; Start at 21:00 Chlorhexidine Gluconate (Peridex) 15 ml BID MT Last administered on 04/23/17 09:06; Admin Dose 15 ML; Start 04/22/17 at 21:00 Vitamin A/Vitamin D (Vitamin A & D Oint) 1 applic TID TOP Last administered on 04/23/17 12:37; Admin Dose 1 APPLIC; Start 04/22/17 at 21:00 Vitamin A/Vitamin D (Vitamin A & D Oint) 1 applic TID PRN TOP DRYNESS Last administered on 04/22/17 15:29; Admin Dose 1 APPLIC; Start 04/22/17 at 15:00 Acetaminophen/ Hydrocodone Bitart ([place] (5/325)) 1 tab Q6H GTB Last administered on 04/23/17 15:26; Admin Dose 1 TAB; Start 04/22/17 at 21:30 IZZY TYLER MD Apr 23, 2017 17:08
[2017-04-24] VITALS (35 sets, daily range): BP systolic 121–152; BP diastolic 57–81; PULSE 69–94; RESP 9–25
[2017-04-24] MEDS: INSULIN ASPART [NOVOLOG] 3 ML PEN SC SCH ×4 (00:01→18:05)
[2017-04-24] MEDS: HYDROCODONE/APAP (5/325) TAB GTB SCH ×4 (03:06→21:59)
[2017-04-24 04:40] LABS: ADD SCAN DIFF NO
[2017-04-24 04:41] LABS: BASOPHILS % 0.1 % (0.0-2.0); EOSINOPHILS % 0.1 % (0.0-7.0); HEMATOCRIT 24.5 % (37.0-47.0); HEMOGLOBIN 7.9 g/dl (12.0-16.0); LYMPHOCYTES # 0.9 10^3/ul (0.8-2.9); MEAN CORPUSCULAR HEMOGLOBIN 34.6 pg (29.0-33.0); MEAN CORPUSCULAR HGB CONC 32.2 g/dl (32.0-37.0); MEAN CORPUSCULAR VOLUME 107.5 fl (82.0-101.0); MEAN PLATELET VOLUME 11.4 fl (7.4-10.4); MONOCYTE # 1.3 10^3/ul (0.3-0.9); MONOCYTES % 7.4 % (0.0-11.0); NEUTROPHIL # 14.1 10^3/ul (1.6-7.5); NEUTROPHILS % 83.2 % (39.0-77.0); PLATELET COUNT 389 10^3/UL (140-415); RED BLOOD COUNT 2.28 10^6/ul (4.20-5.40); RED CELL DISTRIBUTION WIDTH 14.6 % (11.5-14.5); WHITE BLOOD COUNT 16.9 10^3/ul (4.8-10.8)
[2017-04-24 05:02] LABS: ALBUMIN 2.6 g/dl (3.3-4.9); ALBUMIN/GLOBULIN RATIO 0.96; CALCIUM 8.3 mg/dl (8.4-10.2); CREATININE 1.27 mg/dl (0.44-1.00); MAGNESIUM 2.1 mg/dl (1.7-2.5); POTASSIUM 3.8 mmol/L (3.5-5.1); TOTAL PROTEIN 5.3 g/dl (6.1-8.1)
[2017-04-24] MEDS: metroNIDAZOLE 500 MG TAB NGT SCH ×3 (06:18→21:59)
[2017-04-24] MEDS: LEVOTHYROXINE 75 MCG TAB GTB SCH (06:18)
[2017-04-24] MEDS: FUROSEMIDE 20 MG INJ IV SCH (06:19)
[2017-04-24] MEDS: METOCLOPRAMIDE 10 MG INJ IV SCH ×3 (06:19→18:04)
--- NOTE | 2017-04-24 07:22 | PN ---
Date/Time of Note Date/Time of Note DATE: 04/24/17 TIME: 07:20 Assessment/Plan VTE Prophylaxis VTE Prophylaxis Intervention: SCD's Lines/Catheters IV Catheter Type (from Nrsg): PICC Line Central line still needed: Yes Urinary Cath still in place: Yes Reason Cath still needed: other (indicate) Assessment/Plan Chief Complaint/Hosp Course 1. acute on chronic hypoxemic respiratory failure: s/p re-intubation on vent. 2. NSTEMI: due to demand ischemia. 3. CHF: due to diastolic heart failure 4. moderate 5. Arrhythmia and P afib, frequent PVC: currently stable now 6. ANEMIA 7. pneumonia, severe leukocytosis now. 8. s/p sepsis and shock: off of levophed drip now. cont ASA vent support and abx as per PULM Team. correct lytes prn cont ICU care. betablocker as long as BP is stable and is able to tolerate it. thyroid supplement . will closely monitor in ICU. s/p amiodarone drip. will cont po amiodarone. replace lytes including K and Mg prn awaiting ENT consultation Problems: Subjective 24 Hr Interval Summary Free Text/Dictation CARDIOLOGY FOLLOW UP: D/W staff , d/w rhythm was reviewed. pt remains in NSR but with frequent PAC, PVC. no more Afib overnight. Pt is still intubated and on vent. no reports of any chest pain or pressure. no reports of any palpitations Objective: General: Intubated on vent in ICU HEENT: NC/AT. . oropharynx with lesions. NECK: NO JVD. no stridor. s/p previous trach with dressing covering it. CV: RRR. systolic ejection murmur; no gallop or rubs. PULM: + diffuse rhonchi. GI: SOFT, NT, ND, no rebound or guarding s/p PEG Extremity: 1-2+ B/L LE edema. no clubbing. neuro: opens her eye and follows command Psych: calm rectal: deferred Derm: multiple echymosis Exam/Review of Systems Vital Signs Vitals Vital Signs Date Time Temp Pulse Resp B/P Pulse Ox O2 Delivery O2 Flow Rate FiO2 04/24/17 06:00 86 19 129/67 100 Mechanical Ventilator 04/24/17 05:00 30 04/24/17 04:00 98.2 7/10/17 16:12 6.0 Intake and Output 04/23/17 04/23/17 04/24/17 15:00 23:00 07:00 Intake Total 1090 ml 405 ml 470 ml Output Total 471 ml 514 ml 295 ml Balance 619 ml -109 ml 175 ml Results Result Diagram: 04/24/17 0420 04/24/17 0420 Results 24 hrs Laboratory Tests Test 04/23/17 12:41 04/23/17 18:09 04/23/17 23:56 04/24/17 04:20 Bedside Glucose 152 171 183 White Blood Count 16.9 H Red Blood Count 2.28 L Hemoglobin 7.9 L Hematocrit 24.5 L Mean Corpuscular Volume 107.5 H Mean Corpuscular Hemoglobin 34.6 H Mean Corpuscular Hemoglobin Concent 32.2 Red Cell Distribution Width 14.6 H Platelet Count 389 Mean Platelet Volume 11.4 H Neutrophils % 83.2 H Lymphocytes % 5.0 L Monocytes % 7.4 Eosinophils % 0.1 Basophils % 0.1 Nucleated Red Blood Cells % 0.0 Neutrophils # 14.1 H Lymphocytes # 0.9 Monocytes # 1.3 H Eosinophils # 0.0 Basophils # 0.0 Nucleated Red Blood Cells # 0.0 Sodium Level 143 Potassium Level 3.8 Chloride Level 113 H Carbon Dioxide Level 27 Anion Gap 7 L Blood Urea Nitrogen 68 H Creatinine 1.27 H Glucose Level 119 Calcium Level 8.3 L Phosphorus Level 3.4 Magnesium Level 2.1 Total Bilirubin 0.0 L Direct Bilirubin 0.00 Indirect Bilirubin 0.0 Aspartate Amino Transf (AST/SGOT) 18 Alanine Aminotransferase (ALT/SGPT) 39 Alkaline Phosphatase 101 Total Protein 5.3 L Albumin 2.6 L Globulin 2.70 Albumin/Globulin Ratio 0.96 Digoxin Level < 0.4 L Test 04/24/17 06:21 Bedside Glucose 139 Medications Medications Current Medications Norepinephrine/ Dextrose (Levophed/D5W) 500 ml @ 0 mls/hr TITRATE IV Last administered on 04/14/17 10:24; Admin Dose 18.75 MLS/HR; Start 04/11/17 at 12:30 Aspirin (Aspirin) 325 mg DAILY NGT Last administered on 04/23/17 09:05; Admin Dose 325 MG; Start 04/12/17 at 09:00 Metoprolol Tartrate (Lopressor) 25 mg BID NGT Last administered on 04/23/17 20 :00; Admin Dose 25 MG; Start 04/11/17 at 21:00 Metoprolol Tartrate (Lopressor) 5 mg Q4H PRN IV HR>110 Hold SBP<110 Last administered on 04/20/17 17:36; Admin Dose 5 MG; Start 04/11/17 at 13:30 Lansoprazole 30 mg 30 mg DAILY GTB Last administered on 04/23/17 10:02; Admin Dose 30 MG; Start 04/12/17 at 09:00 Phenylephrine HCl/ Dextrose ([place]uy-Syneph/D5W) 500 ml @ 0 mls/hr TITRATE IV Last administered on 04/12/17 02:52; Admin Dose 75 MLS/HR; Start 04/11/17 at 16:00 Miscellaneous Information 1 ea NOTE XX ; Start 04/11/17 at 16:30 Glucose (Glutose) 15 gm Q15M PRN PO DECREASED GLUCOSE; Start 04/11/17 at 16:30 Glucose (Glutose) 22.5 gm Q15M PRN PO DECREASED GLUCOSE; Start 04/11/17 at 16: 30 Dextrose (D50w Syringe) 25 ml Q15M PRN IV DECREASED GLUCOSE Last administered on 04/12/17 23:56; Admin Dose 25 ML; Start 04/11/17 at 16:30 Dextrose (D50w Syringe) 50 ml Q15M PRN IV DECREASED GLUCOSE; Start 04/11/17 at 16:30 Glucagon (Glucagen) 1 mg Q15M PRN IM DECREASED GLUCOSE; Start 04/11/17 at 16:30 Glucose 15 gm 15 gm Q15M PRN BUCCAL DECREASED GLUCOSE; Start 04/11/17 at 16:30 Midazolam HCl 50 ml @ 1 mls/hr TITRATE IV Last administered on 04/13/17 04:30; Admin Dose 2 MLS/HR; Start 04/11/17 at 23:30 Fentanyl (Sublimaze) 100 ml @ 0.5 mls/hr TITRATE IV Last administered on 02:48; Admin Dose 0.5 MLS/HR; Start 04/12/17 at 09:30 Metoclopramide HCl (Reglan) 10 mg Q6 IV Last administered on 04/24/17 06:19; Admin Dose 10 MG; Start 04/12/17 at 18:00 Insulin Aspart (Novolog Insulin Pen) NOVOLOG *MILD* ALGORI... Q6H SC Last administered on 04/24/17 00:01; Admin Dose 2 UNIT; Start 04/15/17 at 00:00 Metronidazole (Flagyl) 500 mg Q8 NGT Last administered on 04/24/17 06:18; Admin Dose 500 MG; Start 04/15/17 at 14:00 IV Flush 10 ml 10 ml PRN PRN IV FLUSH LINE; Start 04/15/17 at 13:00 Ciprofloxacin/ Dextrose (Cipro Ivpb) 200 ml @ 200 mls/hr Q12 IVPB Last administered on 04/23/17 21:22; Admin Dose 200 MLS/HR; Start 04/16/17 at 21:00 Hydrocortisone (Solu-Cortef) 25 mg TID IV Last administered on 04/23/17 20:28 ; Admin Dose 25 MG; Start 04/16/17 at 13:00 Amiodarone HCl (Cordarone) 200 mg BID GTB Last administered on 04/23/17 20:00 ; Admin Dose 200 MG; Start 04/16/17 at 13:00 Diltiazem HCl (Cardizem Iv) 5 mg Q1H PRN IV AFIB GREATER THAN 110 Last administered on 04/17/17 16:41; Admin Dose 5 MG; Start 04/16/17 at 13:00 Enoxaparin Sodium (Lovenox) 40 mg HS SC Last administered on 04/17/17 20:38; Admin Dose 40 MG; Start 04/17/17 at 21:00; Status Future Hold Heparin Sodium (Porcine) (Heparin (5000 Units/0.5 ml)) 5,000 unit BID SC Last administered on 04/23/17 20:39; Admin Dose 5,000 UNIT; Start 04/18/17 at 16:22 Acetaminophen/ Hydrocodone Bitart ([place] (5/325)) 2 tab Q4H PRN NGT MODERATE PAIN LEVEL 4-6 Last administered on 04/20/17 01:47; Admin Dose 2 TAB; Start 04/18 at 17:30 Citalopram Hydrobromide (Celexa) 20 mg DAILY NGT Last administered on 09:06; Admin Dose 20 MG; Start 04/19/17 at 09:00 Hydralazine HCl 20 mg 20 mg Q6H PRN IV sbp ABOVE 160 Last administered on 12:09; Admin Dose 20 MG; Start 04/18/17 at 18:30 Caspofungin 50 mg/ Sodium Chloride 250 ml @ 250 mls/hr Q24H IV Last administered on 04/23/17 11:07; Admin Dose 250 MLS/HR; Start 04/21/17 at 10:00 Vancomycin HCl 100 ml @ 100 mls/hr Q36H IVPB Last administered on 04/23/17 05 :59; Admin Dose 100 MLS/HR; Start 04/21/17 at 17:00 Meropenem/Sodium Chloride (Merrem 1 Gm/50 ml (Pmx)) 50 ml @ 200 mls/hr Q12 IVPB Last administered on 04/23/17 20:28; Admin Dose 200 MLS/HR; Start at 21:00 Chlorhexidine Gluconate (Peridex) 15 ml BID MT Last administered on 04/23/17 20:01; Admin Dose 15 ML; Start 04/22/17 at 21:00 Vitamin A/Vitamin D (Vitamin A & D Oint) 1 applic TID TOP Last administered on 04/23/17 20:28; Admin Dose 1 APPLIC; Start 04/22/17 at 21:00 Vitamin A/Vitamin D (Vitamin A & D Oint) 1 applic TID PRN TOP DRYNESS Last administered on 04/22/17 15:29; Admin Dose 1 APPLIC; Start 04/22/17 at 15:00 Acetaminophen/ Hydrocodone Bitart ([place] (5/325)) 1 tab Q6H GTB Last administered on 04/24/17 03:06; Admin Dose 1 TAB; Start 04/22/17 at 21:30 FRANCISCO BLACKWOOD MD Apr 24, 2017 07:22
[2017-04-24] MEDS ORDERED: POTASSIUM CHLORIDE 20 MEQ POWDER FOR ORAL SOLN GTB ONE (07:30)
--- NOTE | 2017-04-24 08:07 | PN ---
Date/Time of Note Date/Time of Note DATE: 04/24/17 TIME: 08:03 Assessment/Plan VTE Prophylaxis VTE Prophylaxis Intervention: other Lines/Catheters IV Catheter Type (from Nrs): PICC Line Central line still needed: Yes Urinary Cath still in place: Yes Reason Cath still needed: other (indicate) Assessment/Plan Chief Complaint/Hosp Course 1. Status post code arrest -Etiology was respiratory due to hypoxemia -Patient currently stable on ventilatory support -Monitor closely 2. Nonoliguric keyonna. With previously normal baseline creatinine. Etiology is likely secondary to septic KEYONNA with possible ATN -Renal function has been stable, -Continue treatment plan. Supportive care renally dose meds avoid nephrotoxins -Follow-up renal panel - 3. Sepsis, status post shock. Etiology is likely secondary to aspiration pneumonia, fungemia -Patient currently off pressors. Remains on antibiotics, antifungals - Patient's blood cultures have been reviewed. - Continue current treatment plan Follow-up with infectious disease 3. Ventilator dependent respiratory failure. etiology secondary to pneumonia, CHF -Vent settings and ABG have been reviewed -Follow-up with pulmonary -ENT consult has been placed 4. Volume overload. Etiology likely secondary to sepsis capillary leak. Possible diastolic heart failure. -Continue Lasix 5. Elevated troponin. Possible non-STEMI type II. We will continue to monitor follow-up with cardiology 6. History of adrenal insufficiency. -Patient currently on stress steroids, -Appreciate endocrinology evaluation 7. Acute encephalopathy etiologies toxic metabolic, possible anoxic injury. Mental status is improving, patient following commands CT scan showed no acute finding Appreciate Dr. Ellis evaluation -Continue to monitor closely 8. possible acute cholecystitis -Patient's HIDA scan was positive - cholecystostomy drain was not placed due to insufficient fluid. -No plan for drain placement at this time. I discussed case with general surgery Appreciate surgery's evaluation. 9. Hypothyroidism continue Synthroid 10. Anemia. -Hemoglobin levels have declined, will repeat H&H level. Consider transfusion 11. Mineral bone disorder will monitor calcium phosphorus levels 12. h/o tongue cancer with resection 13. History of diastolic heart failure/coronary disease -Continue medical management 14. Leukocytosis. -Etiology is likely secondary sepsis, steroids. -Slowly improving as steroids are being weaned down - Follow-up with infectious disease. 15. Hypomagnesemia. Continue to monitor and replete as needed 16. Left upper extremity DVT. Patient's on heparin and aspirin. Continue to monitor 17. Dysphagia status post PEG -Resume tube feedings, if no further episodes of emesis 18. Arrhythmia Status post amiodarone drip Follow-up with cardio I spent greater than 40 minutes of critical care time with this pt Problems: Subjective 24 Hr Interval Summary Free Text/Dictation Patient is critical but stable condition. Alert. Able to follow simple commands. No other events noted overnight. Exam/Review of Systems Vital Signs Vitals Vital Signs Date Time Temp Pulse Resp B/P Pulse Ox O2 Delivery O2 Flow Rate FiO2 04/24/17 06:00 86 19 129/67 100 Mechanical Ventilator 04/24/17 05:00 30 04/24/17 04:00 98.2 04/21/17 16:12 6.0 Intake and Output 04/23/17 04/23/17 04/24/17 14:59 22:59 06:59 Intake Total 1140 ml 405 ml 520 ml Output Total 438 ml 497 ml 345 ml Balance 702 ml -92 ml 175 ml Exam HEENT: Head is normocephalic. NECK: Supple. HEART: Irregular LUNGS: Show diminished breath sounds at base. ABDOMEN: Soft, nontender to palpation without rebound or guarding. EXTREMITIES: Negative for clubbing, cyanosis. Positive edema, DERMATOLOGIC: No rashes. MUSCULOSKELETAL: No joint effusions, NEUROLOGIC: No change in exam. Results Result Diagram: 04/24/17 0420 04/24/17 0420 Results 24 hrs Laboratory Tests Test 04/23/17 12:41 04/23/17 18:09 04/23/17 23:56 04/24/17 04:20 Bedside Glucose 152 171 183 White Blood Count 16.9 H Red Blood Count 2.28 L Hemoglobin 7.9 L Hematocrit 24.5 L Mean Corpuscular Volume 107.5 H Mean Corpuscular Hemoglobin 34.6 H Mean Corpuscular Hemoglobin Concent 32.2 Red Cell Distribution Width 14.6 H Platelet Count 389 Mean Platelet Volume 11.4 H Neutrophils % 83.2 H Lymphocytes % 5.0 L Monocytes % 7.4 Eosinophils % 0.1 Basophils % 0.1 Nucleated Red Blood Cells % 0.0 Neutrophils # 14.1 H Lymphocytes # 0.9 Monocytes # 1.3 H Eosinophils # 0.0 Basophils # 0.0 Nucleated Red Blood Cells # 0.0 Sodium Level 143 Potassium Level 3.8 Chloride Level 113 H Carbon Dioxide Level 27 Anion Gap 7 L Blood Urea Nitrogen 68 H Creatinine 1.27 H Glucose Level 119 Calcium Level 8.3 L Phosphorus Level 3.4 Magnesium Level 2.1 Total Bilirubin 0.0 L Direct Bilirubin 0.00 Indirect Bilirubin 0.0 Aspartate Amino Transf (AST/SGOT) 18 Alanine Aminotransferase (ALT/SGPT) 39 Alkaline Phosphatase 101 Total Protein 5.3 L Albumin 2.6 L Globulin 2.70 Albumin/Globulin Ratio 0.96 Digoxin Level < 0.4 L Test 04/24/17 06:21 Bedside Glucose 139 Medications Medications Current Medications Norepinephrine/ Dextrose (Levophed/D5W) 500 ml @ 0 mls/hr TITRATE IV Last administered on 04/14/17 10:24; Admin Dose 18.75 MLS/HR; Start 04/11/17 at 12:30 Aspirin (Aspirin) 325 mg DAILY NGT Last administered on 04/23/17 09:05; Admin Dose 325 MG; Start 04/12/17 at 09:00 Metoprolol Tartrate (Lopressor) 25 mg BID NGT Last administered on 04/23/17 20 :00; Admin Dose 25 MG; Start 04/11/17 at 21:00 Metoprolol Tartrate (Lopressor) 5 mg Q4H PRN IV HR>110 Hold SBP<110 Last administered on 04/20/17 17:36; Admin Dose 5 MG; Start 04/11/17 at 13:30 Lansoprazole 30 mg 30 mg DAILY GTB Last administered on 04/23/17 10:02; Admin Dose 30 MG; Start 04/12/17 at 09:00 Phenylephrine HCl/ Dextrose ([place]-Syneph/D5W) 500 ml @ 0 mls/hr TITRATE IV Last administered on 04/12/17 02:52; Admin Dose 75 MLS/HR; Start 04/11/17 at 16:00 Miscellaneous Information 1 ea NOTE XX ; Start 04/11/17 at 16:30 Glucose (Glutose) 15 gm Q15M PRN PO DECREASED GLUCOSE; Start 04/11/17 at 16:30 Glucose (Glutose) 22.5 gm Q15M PRN PO DECREASED GLUCOSE; Start 04/11/17 at 16: 30 Dextrose (D50w Syringe) 25 ml Q15M PRN IV DECREASED GLUCOSE Last administered on 04/12/17 23:56; Admin Dose 25 ML; Start 04/11/17 at 16:30 Dextrose (D50w Syringe) 50 ml Q15M PRN IV DECREASED GLUCOSE; Start 04/11/17 at 16:30 Glucagon (Glucagen) 1 mg Q15M PRN IM DECREASED GLUCOSE; Start 04/11/17 at 16:30 Glucose 15 gm 15 gm Q15M PRN BUCCAL DECREASED GLUCOSE; Start 04/11/17 at 16:30 Midazolam HCl 50 ml @ 1 mls/hr TITRATE IV Last administered on 04/13/17 04:30; Admin Dose 2 MLS/HR; Start 04/11/17 at 23:30 Fentanyl (Sublimaze) 100 ml @ 0.5 mls/hr TITRATE IV Last administered on 02:48; Admin Dose 0.5 MLS/HR; Start 04/12/17 at 09:30 Metoclopramide HCl (Reglan) 10 mg Q6 IV Last administered on 04/24/17 06:19; Admin Dose 10 MG; Start 04/12/17 at 18:00 Insulin Aspart (Novolog Insulin Pen) NOVOLOG *MILD* ALGORI... Q6H SC Last administered on 04/24/17 00:01; Admin Dose 2 UNIT; Start 04/15/17 at 00:00 Metronidazole (Flagyl) 500 mg Q8 NGT Last administered on 04/24/17 06:18; Admin Dose 500 MG; Start 04/15/17 at 14:00 IV Flush 10 ml 10 ml PRN PRN IV FLUSH LINE; Start 04/15/17 at 13:00 Ciprofloxacin/ Dextrose (Cipro Ivpb) 200 ml @ 200 mls/hr Q12 IVPB Last administered on 04/23/17 21:22; Admin Dose 200 MLS/HR; Start 04/16/17 at 21:00 Hydrocortisone (Solu-Cortef) 25 mg TID IV Last administered on 04/23/17 20:28 ; Admin Dose 25 MG; Start 04/16/17 at 13:00 Amiodarone HCl (Cordarone) 200 mg BID GTB Last administered on 04/23/17 20:00 ; Admin Dose 200 MG; Start 04/16/17 at 13:00 Diltiazem HCl (Cardizem Iv) 5 mg Q1H PRN IV AFIB GREATER THAN 110 Last administered on 04/17/17 16:41; Admin Dose 5 MG; Start 04/16/17 at 13:00 Enoxaparin Sodium (Lovenox) 40 mg HS SC Last administered on 04/17/17 20:38; Admin Dose 40 MG; Start 04/17/17 at 21:00; Status Future Hold Heparin Sodium (Porcine) (Heparin (5000 Units/0.5 ml)) 5,000 unit BID SC Last administered on 04/23/17 20:39; Admin Dose 5,000 UNIT; Start 04/18/17 at 16:22 Acetaminophen/ Hydrocodone Bitart ([place] (5/325)) 2 tab Q4H PRN NGT MODERATE PAIN LEVEL 4-6 Last administered on 04/20/17 01:47; Admin Dose 2 TAB; Start 04/18 at 17:30 Citalopram Hydrobromide (Celexa) 20 mg DAILY NGT Last administered on 09:06; Admin Dose 20 MG; Start 04/19/17 at 09:00 Hydralazine HCl 20 mg 20 mg Q6H PRN IV sbp ABOVE 160 Last administered on 12:09; Admin Dose 20 MG; Start 04/18/17 at 18:30 Caspofungin 50 mg/ Sodium Chloride 250 ml @ 250 mls/hr Q24H IV Last administered on 04/23/17 11:07; Admin Dose 250 MLS/HR; Start 04/21/17 at 10:00 Vancomycin HCl 100 ml @ 100 mls/hr Q36H IVPB Last administered on 04/23/17 05 :59; Admin Dose 100 MLS/HR; Start 04/21/17 at 17:00 Meropenem/Sodium Chloride (Merrem 1 Gm/50 ml (Pmx)) 50 ml @ 200 mls/hr Q12 IVPB Last administered on 04/23/17 20:28; Admin Dose 200 MLS/HR; Start at 21:00 Chlorhexidine Gluconate (Peridex) 15 ml BID MT Last administered on 04/23/17 20:01; Admin Dose 15 ML; Start 04/22/17 at 21:00 Vitamin A/Vitamin D (Vitamin A & D Oint) 1 applic TID TOP Last administered on 04/23/17 20:28; Admin Dose 1 APPLIC; Start 04/22/17 at 21:00 Vitamin A/Vitamin D (Vitamin A & D Oint) 1 applic TID PRN TOP DRYNESS Last administered on 04/22/17 15:29; Admin Dose 1 APPLIC; Start 04/22/17 at 15:00 Acetaminophen/ Hydrocodone Bitart ([place] (5/325)) 1 tab Q6H GTB Last administered on 04/24/17 03:06; Admin Dose 1 TAB; Start 04/22/17 at 21:30 NINA MACIEL DO Apr 24, 2017 08:06
[2017-04-24] MEDS: LANSOPRAZOLE 30 MG CAP GTB SCH (08:25)
[2017-04-24] MEDS: HYDROCORTISONE 100 MG INJ IV SCH ×3 (08:25→20:35)
[2017-04-24] MEDS: AMIODARONE 200 MG TAB GTB SCH ×2 (08:25→20:13)
[2017-04-24] MEDS: CHLORHEXIDINE GLUCONATE 15 ML UD CUP MT SCH ×2 (08:26→20:13)
[2017-04-24] MEDS: METOPROLOL 25 MG TAB NGT SCH ×2 (08:26→20:14)
[2017-04-24] MEDS: CITALOPRAM 20 MG TAB NGT SCH (08:26)
[2017-04-24] MEDS: CIPROFLOXACIN 400MG/D5W 200 ML IVPB SCH (08:26)
[2017-04-24] MEDS: VITAMIN A & D 5 GM OINT PACKET TOP SCH ×3 (08:26→20:14)
[2017-04-24] MEDS: ASPIRIN 325 MG TAB NGT SCH (08:26)
[2017-04-24] MEDS: HEPARIN 5,000 UNIT/0.5 ML VIAL SC SCH ×2 (08:27→20:48)
[2017-04-24] MEDS: MEROPENEM 1 GM/50ML(PMX) 50 ML IVPB SCH ×2 (08:29→20:35)
[2017-04-24] MEDS: CASPOFUNGIN 50 MG in NS 250 ML IV SCH (09:20)
[2017-04-24] MEDS: HYDROCODONE/APAP (5/325) TAB NGT PRN (09:21)
--- NOTE | 2017-04-24 09:45 | RADRPT ---
PROCEDURE: Chest Radiograph. CLINICAL INDICATION: Pneumonia. CHF. TECHNIQUE: Single frontal chest radiograph. COMPARISON: Chest radiograph 04/22/2017 FINDINGS: Endotracheal tube is in place with distal tip approximate 1.5 cm above the sammy. A right upper ex tremity PICC is in place. Heart size is within normal limits. Atherosclerotic calcifications are p resent. Patchy bilateral interstitial and airspace disease is stable in distribution and extent. No confluent or lobar infiltrate is seen. There is a stable small right pleural effusion. The bones are intact. IMPRESSION: 1. Grossly stable radiographic appearance of the chest compared to 04/22/2017. RPTAT: KK .Inocente Donaldson MD, Date Time Electronically viewed and signed by .Inocente Donaldson MD, MD on 04/24/2017 09:44 .B/
--- NOTE | 2017-04-24 10:58 | CONS ---
Date/Time of Note Date/Time of Note DATE: 04/24/17 TIME: 10:57 Consult Date/Type/Reason Admit Date/Time Apr 11, 2017 at 11:28 Initial Consult Date 04/12/17 Type of Consultation: Pulmonary ICU Ordering Provider: NINA MACIEL DO Subjective Awake alert on mechanical ventilation appears comfortable at rest no acute distress no events overnight. Objective Vital Signs Date Time Temp Pulse Resp B/P Pulse Ox O2 Delivery O2 Flow Rate FiO2 04/24/17 08:00 86 04/24/17 06:00 19 129/67 100 Mechanical Ventilator 04/24/17 05:00 30 04/24/17 04:00 98.2 04/21/17 16:12 6.0 Intake and Output 04/23/17 04/23/17 04/24/17 15:00 23:00 07:00 Intake Total 1090 ml 405 ml 470 ml Output Total 471 ml 514 ml 295 ml Balance 619 ml -109 ml 175 ml Exam GENERAL: Chronically ill-appearing elderly lady on mechanical ventilation, awake and alert follows simple commands VITAL SIGNS: per chart NECK: Supple. No JVD or lymphadenopathy. Stoma site has dressing in place CARDIAC EXAM: S1, S2. No added sounds or murmurs. CHEST: Diminished air entry bilaterally poor effort ABDOMEN: Soft, nontender. No guarding or rebound. EXTREMITIES: No cyanosis, clubbing edema +2 NEUROLOGIC: Generalized weakness. Results/Medications Result Diagram: 04/24/17 0420 04/24/17 0420 Results 24 hrs Laboratory Tests Test 04/23/17 12:41 04/23/17 18:09 04/23/17 23:56 04/24/17 04:20 Bedside Glucose 152 171 183 White Blood Count 16.9 H Red Blood Count 2.28 L Hemoglobin 7.9 L Hematocrit 24.5 L Mean Corpuscular Volume 107.5 H Mean Corpuscular Hemoglobin 34.6 H Mean Corpuscular Hemoglobin Concent 32.2 Red Cell Distribution Width 14.6 H Platelet Count 389 Mean Platelet Volume 11.4 H Neutrophils % 83.2 H Lymphocytes % 5.0 L Monocytes % 7.4 Eosinophils % 0.1 Basophils % 0.1 Nucleated Red Blood Cells % 0.0 Neutrophils # 14.1 H Lymphocytes # 0.9 Monocytes # 1.3 H Eosinophils # 0.0 Basophils # 0.0 Nucleated Red Blood Cells # 0.0 Sodium Level 143 Potassium Level 3.8 Chloride Level 113 H Carbon Dioxide Level 27 Anion Gap 7 L Blood Urea Nitrogen 68 H Creatinine 1.27 H Glucose Level 119 Calcium Level 8.3 L Phosphorus Level 3.4 Magnesium Level 2.1 Total Bilirubin 0.0 L Direct Bilirubin 0.00 Indirect Bilirubin 0.0 Aspartate Amino Transf (AST/SGOT) 18 Alanine Aminotransferase (ALT/SGPT) 39 Alkaline Phosphatase 101 Total Protein 5.3 L Albumin 2.6 L Globulin 2.70 Albumin/Globulin Ratio 0.96 Digoxin Level < 0.4 L Test 04/24/17 06:21 Bedside Glucose 139 Medications Current Medications Norepinephrine/ Dextrose (Levophed/D5W) 500 ml @ 0 mls/hr TITRATE IV Last administered on 04/14/17 10:24; Admin Dose 18.75 MLS/HR; Start 04/11/17 at 12:30 Aspirin (Aspirin) 325 mg DAILY NGT Last administered on 04/24/17 08:26; Admin Dose 325 MG; Start 04/12/17 at 09:00 Metoprolol Tartrate (Lopressor) 25 mg BID NGT Last administered on 04/24/17 08 :26; Admin Dose 25 MG; Start 04/11/17 at 21:00 Metoprolol Tartrate (Lopressor) 5 mg Q4H PRN IV HR>110 Hold SBP<110 Last administered on 04/20/17 17:36; Admin Dose 5 MG; Start 04/11/17 at 13:30 Lansoprazole 30 mg 30 mg DAILY GTB Last administered on 04/24/17 08:25; Admin Dose 30 MG; Start 04/12/17 at 09:00 Phenylephrine HCl/ Dextrose ([place]-Syneph/D5W) 500 ml @ 0 mls/hr TITRATE IV Last administered on 04/12/17 02:52; Admin Dose 75 MLS/HR; Start 04/11/17 at 16:00 Miscellaneous Information 1 ea NOTE XX ; Start 04/11/17 at 16:30 Glucose (Glutose) 15 gm Q15M PRN PO DECREASED GLUCOSE; Start 04/11/17 at 16:30 Glucose (Glutose) 22.5 gm Q15M PRN PO DECREASED GLUCOSE; Start 04/11/17 at 16: 30 Dextrose (D50w Syringe) 25 ml Q15M PRN IV DECREASED GLUCOSE Last administered on 04/12/17 23:56; Admin Dose 25 ML; Start 04/11/17 at 16:30 Dextrose (D50w Syringe) 50 ml Q15M PRN IV DECREASED GLUCOSE; Start 04/11/17 at 16:30 Glucagon (Glucagen) 1 mg Q15M PRN IM DECREASED GLUCOSE; Start 04/11/17 at 16:30 Glucose 15 gm 15 gm Q15M PRN BUCCAL DECREASED GLUCOSE; Start 04/11/17 at 16:30 Midazolam HCl 50 ml @ 1 mls/hr TITRATE IV Last administered on 04/13/17 04:30; Admin Dose 2 MLS/HR; Start 04/11/17 at 23:30 Fentanyl (Sublimaze) 100 ml @ 0.5 mls/hr TITRATE IV Last administered on 02:48; Admin Dose 0.5 MLS/HR; Start 04/12/17 at 09:30 Metoclopramide HCl (Reglan) 10 mg Q6 IV Last administered on 04/24/17 06:19; Admin Dose 10 MG; Start 04/12/17 at 18:00 Insulin Aspart (Novolog Insulin Pen) NOVOLOG *MILD* ALGORI... Q6H SC Last administered on 04/24/17 00:01; Admin Dose 2 UNIT; Start 04/15/17 at 00:00 Metronidazole (Flagyl) 500 mg Q8 NGT Last administered on 04/24/17 06:18; Admin Dose 500 MG; Start 04/15/17 at 14:00 IV Flush 10 ml 10 ml PRN PRN IV FLUSH LINE; Start 04/15/17 at 13:00 Ciprofloxacin/ Dextrose (Cipro Ivpb) 200 ml @ 200 mls/hr Q12 IVPB Last administered on 04/24/17 08:26; Admin Dose 200 MLS/HR; Start 04/16/17 at 21:00 Hydrocortisone (Solu-Cortef) 25 mg TID IV Last administered on 04/24/17 08:25 ; Admin Dose 25 MG; Start 04/16/17 at 13:00 Amiodarone HCl (Cordarone) 200 mg BID GTB Last administered on 04/24/17 08:25 ; Admin Dose 200 MG; Start 04/16/17 at 13:00 Diltiazem HCl (Cardizem Iv) 5 mg Q1H PRN IV AFIB GREATER THAN 110 Last administered on 04/17/17 16:41; Admin Dose 5 MG; Start 04/16/17 at 13:00 Enoxaparin Sodium (Lovenox) 40 mg HS SC Last administered on 04/17/17 20:38; Admin Dose 40 MG; Start 04/17/17 at 21:00; Status Future Hold Heparin Sodium (Porcine) (Heparin (5000 Units/0.5 ml)) 5,000 unit BID SC Last administered on 04/24/17 08:27; Admin Dose 5,000 UNIT; Start 04/18/17 at 16:22 Acetaminophen/ Hydrocodone Bitart ([place] (5/325)) 2 tab Q4H PRN NGT MODERATE PAIN LEVEL 4-6 Last administered on 04/24/17 09:21; Admin Dose 2 TAB; Start 04/18/17 at 17:30 Citalopram Hydrobromide (Celexa) 20 mg DAILY NGT Last administered on 08:26; Admin Dose 20 MG; Start 04/19/17 at 09:00 Hydralazine HCl 20 mg 20 mg Q6H PRN IV sbp ABOVE 160 Last administered on 12:09; Admin Dose 20 MG; Start 04/18/17 at 18:30 Caspofungin 50 mg/ Sodium Chloride 250 ml @ 250 mls/hr Q24H IV Last administered on 04/24/17 09:20; Admin Dose 250 MLS/HR; Start 04/21/17 at 10:00 Vancomycin HCl 100 ml @ 100 mls/hr Q36H IVPB Last administered on 04/23/17 05 :59; Admin Dose 100 MLS/HR; Start 04/21/17 at 17:00 Meropenem/Sodium Chloride (Merrem 1 Gm/50 ml (Pmx)) 50 ml @ 200 mls/hr Q12 IVPB Last administered on 04/24/17 08:29; Admin Dose 200 MLS/HR; Start at 21:00 Chlorhexidine Gluconate (Peridex) 15 ml BID MT Last administered on 04/24/17 08:26; Admin Dose 15 ML; Start 04/22/17 at 21:00 Vitamin A/Vitamin D (Vitamin A & D Oint) 1 applic TID TOP Last administered on 04/24/17 08:26; Admin Dose 1 APPLIC; Start 04/22/17 at 21:00 Vitamin A/Vitamin D (Vitamin A & D Oint) 1 applic TID PRN TOP DRYNESS Last administered on 04/22/17 15:29; Admin Dose 1 APPLIC; Start 04/22/17 at 15:00 Acetaminophen/ Hydrocodone Bitart ([place] (5/325)) 1 tab Q6H GTB Last administered on 04/24/17 03:06; Admin Dose 1 TAB; Start 04/22/17 at 21:30 Assessment/Plan Chief Complaint/Hosp Course IMP: 1. Status post septic Shock--likely due to multilobar aspiration pneumonia vs. HCAP possibly secondary to acute cholecystitis also 2. Multifocal pneumonia aspiration vs.HCAP, persistent leukocytosis chest x-ray shows improved lung aeration 3. Hypercapnic Respiratory Failure--likely due to critical illness myopathy/ neuropathy 4. Status post lactic acidosis. 5. Demand Ischemia 6. Cholecystitis, 7. Dysphagia continues tube feeding RECS: 1. Continue mechanical ventilation. Continue to advance SIMV 2. Oral care. 3. ABG: Monitor PCO2 4. Tube feeding 40 cc an hour 5. Continue antibiotics 6. Continue physical therapy 7. Surgical recommendations Critical care time 40 minutes. Case d/w RN and patient's Problems: DARWIN CRAWFORD MD, [facility] Apr 24, 2017 10:58
--- NOTE | 2017-04-24 13:17 | PN ---
Date/Time of Note Date/Time of Note DATE: 04/24/17 TIME: 13:09 Assessment/Plan Lines/Catheters IV Catheter Type (from [facility]): PICC Line Latif in Place (from [facility]): Yes Assessment/Plan Chief Complaint/Hosp Course 1. Cholelithiasis ? cholecystitis: Ct abd: sludge and small stones in the gallbladder. No gallbladder wall thickening is noted with some pericholecystic fluid is present. Patient off pressors; GT/OGT no output; HIDA positive; IR drain placement cancelled by radiologist since US without evidence of infection. Therefore, Dr. Guadalupe believes the HIDA is false positive. -No surgical intervention required at this time -will await medical optimization 2. Pneumonia: Recurrent; no fevers; intubated; less secretion sputum cx: PSEUDOMONAS AERUGINOSA, K PNEUMO ESBL, NASRIN GLABRATA; appears comfortable -pulmonary toilet -abx per ID -diuresis -bipap 3. Vent dependent respiratory failure: 2/2 aspiration PNA+ CHF;reintubated, coded 04/21; comfortable -as above 4. Septic shock: improved -on abx -supportive 5. Uncontrolled Afib: s/p amiodarone drip, on oral amiodarone Now SR -medical optimization -lovenox 6. Elevated troponin:NSTEMI; septic shock/demand ischemia -trend 7. Leukocytosis with lactic acidosis: 2/2 pneumonia vs. steroids vs. other ( urine, blood cultures negative); Improving. -abx -judicious fluid management -supportive measures 8. KEYONNA: likely 2/2 septic shock;cr increased; s/p code; improving -judicious fluid management -avoid nephrotoxic agents 9. CHF: -judicious fluid management -medical optimization 10. Adrenal Insufficiency -solucortef 11. Hypomagnesemia: normalized -electrolyte optimization -monitor for cardiac abnormalities 12. Hypothyroidism -cont. synthroid 13. Macrocytic anemia: chronic vs. dilutional vs. acute bleed vs. b12/folate deficiency; h/h stable; noted gtube output coffee ground yesterday (? bleeding from mouth); h/h lower today -monitor -Transfuse as needed 14. Transaminitis: likely 2/2 septic shock vs. cholecystitis; normalized -trend, monitor 15. Diarrhea: 2/2 abx vs. enteritis: resolved; tolerating tf -? probiotics 16. Thrombocytosis: 2/2 inflammatory vs. drug induced vs. other; normalized -monitor -bleeding precautions -supportive 17. Encephalopathy: 2/2 toxic metabolic vs. anoxic injury; CT: No acute intracranial hemorrhage or mass effect. Mild chronic microvascular disease and intracranial atherosclerosis; more alert and communicative; EEG shows no seizure activity -supportive 18. Bilateral upper extremity edema: likely 2/2 decreased movement vs. thrombosis; initial doppler negative, repeat doppler left arm (+) Thrombus -elevate extremities -supportive -anticoagulation 19. Hypoalbuminemia: 2/2 malnutrition +/- inflammation; decreased; tolerating tf -nutrition optimization -as above Patient seen and examined in collaboration with Dr. Justus Antonio Problems: Subjective 24 Hr Interval Summary more awake and responsive. feels well. +bm, tolerating tf. comfortable on vent. No fevers, chills, n/v/d, sob, cp, palpitations, metzger, dizziness, sz Exam/Review of Systems Vital Signs Vitals Vital Signs Date Time Temp Pulse Resp B/P Pulse Ox O2 Delivery O2 Flow Rate FiO2 04/25/17 08:00 30 04/25/17 06:00 12 144/75 100 Mechanical Ventilator 04/25/17 05:11 80 04/25/17 04:00 97.5 04/21/17 16:12 6.0 Intake and Output 04/24/17 04/24/17 04/25/17 15:00 23:00 07:00 Intake Total 990 ml 525 ml 425 ml Output Total 495 ml 770 ml 385 ml Balance 495 ml -245 ml 40 ml Exam Free Text/Dictation Constitutional: Awake, appears comfortable Head: atraumatic, normocephalic Eyes: PERRL, nl lids, nl sclera ENMT: No mucosa pink and moist (pink and dry), reintubated Neck: non-tender, supple Respiratory: comfortable, no wheezing, rhonchi Cardiovascular: nl pulses, regular rate and rhythm, NSR, Gastrointestinal: soft, GT tubes site no erythema, no drainage, min tenderness, Genitourinary - Female: nl external genitalia Musculoskeletal: nl extremities to inspection Extremities: normal pulses, bilateral upper/lower extremity edema Neurological: more responsive Skin: nl turgor, No rash or lesions Lymph: nl lymph nodes Results Result Diagram: 04/25/1742904/25/17 043 ADDISON FREGOSO NP Apr 24, 2017 13:17
[2017-04-24] MEDS: FUROSEMIDE 40 MG INJ IV SCH (18:04)
[2017-04-24] MEDS: VALACYCLOVIR 500 MG TAB PO SCH (20:34)
[2017-04-25] VITALS (36 sets, daily range): BP systolic 109–162; BP diastolic 59–82; PULSE 72–98; RESP 0–23
[2017-04-25] MEDS: METOCLOPRAMIDE 10 MG INJ IV SCH ×4 (00:44→17:49)
[2017-04-25] MEDS: INSULIN ASPART [NOVOLOG] 3 ML PEN SC SCH ×4 (00:50→17:52)
[2017-04-25] MEDS: HYDROCODONE/APAP (5/325) TAB GTB SCH ×4 (03:30→21:56)
[2017-04-25 05:02] LABS: ADD SCAN DIFF NO
[2017-04-25 05:10] LABS: BASOPHILS % 0.1 % (0.0-2.0); HEMATOCRIT 25.5 % (37.0-47.0); HEMOGLOBIN 7.7 g/dl (12.0-16.0); LYMPHOCYTES % 5.5 % (15.0-51.0); MEAN CORPUSCULAR HEMOGLOBIN 32.5 pg (29.0-33.0); MEAN CORPUSCULAR HGB CONC 30.2 g/dl (32.0-37.0); MEAN CORPUSCULAR VOLUME 107.6 fl (82.0-101.0); MEAN PLATELET VOLUME 11.6 fl (7.4-10.4); MONOCYTE # 1.3 10^3/ul (0.3-0.9); MONOCYTES % 7.3 % (0.0-11.0); NEUTROPHIL # 14.7 10^3/ul (1.6-7.5); NEUTROPHILS % 83.1 % (39.0-77.0); PLATELET COUNT 408 10^3/UL (140-415); RED BLOOD COUNT 2.37 10^6/ul (4.20-5.40); RED CELL DISTRIBUTION WIDTH 14.6 % (11.5-14.5); WHITE BLOOD COUNT 17.7 10^3/ul (4.8-10.8)
[2017-04-25 05:47] LABS: ALBUMIN 2.4 g/dl (3.3-4.9); ALBUMIN/GLOBULIN RATIO 0.96; CALCIUM 8.5 mg/dl (8.4-10.2); CREATININE 1.19 mg/dl (0.44-1.00); MAGNESIUM 2.2 mg/dl (1.7-2.5); POTASSIUM 4.1 mmol/L (3.5-5.1); TOTAL PROTEIN 4.9 g/dl (6.1-8.1)
[2017-04-25] MEDS: LEVOTHYROXINE 75 MCG TAB GTB SCH (06:02)
[2017-04-25] MEDS: FUROSEMIDE 40 MG INJ IV SCH ×2 (06:02→17:49)
[2017-04-25] MEDS: metroNIDAZOLE 500 MG TAB NGT SCH ×3 (06:02→21:59)
[2017-04-25] MEDS: LANSOPRAZOLE 30 MG CAP GTB SCH (08:39)
[2017-04-25] MEDS: HYDROCORTISONE 100 MG INJ IV SCH ×3 (08:39→20:28)
[2017-04-25] MEDS: CITALOPRAM 20 MG TAB NGT SCH (08:39)
[2017-04-25] MEDS: ASPIRIN 325 MG TAB NGT SCH (08:39)
[2017-04-25] MEDS: METOPROLOL 25 MG TAB NGT SCH ×2 (08:39→20:29)
[2017-04-25] MEDS: AMIODARONE 200 MG TAB GTB SCH ×2 (08:39→20:30)
[2017-04-25] MEDS: VALACYCLOVIR 500 MG TAB PO SCH ×2 (08:39→20:28)
[2017-04-25] MEDS: MEROPENEM 1 GM/50ML(PMX) 50 ML IVPB SCH ×2 (08:39→20:39)
[2017-04-25] MEDS: CHLORHEXIDINE GLUCONATE 15 ML UD CUP MT SCH ×2 (08:39→20:28)
[2017-04-25] MEDS: VITAMIN A & D 5 GM OINT PACKET TOP SCH ×3 (08:41→20:29)
[2017-04-25] MEDS: HEPARIN 5,000 UNIT/0.5 ML VIAL SC SCH ×2 (08:41→20:48)
--- NOTE | 2017-04-25 09:19 | CONS ---
Date/Time of Note Date/Time of Note DATE: 04/25/17 TIME: 09:17 Consult Date/Type/Reason Admit Date/Time Apr 11, 2017 at 11:28 Initial Consult Date 04/14/17 Type of Consultation: Pulmonary ICU Ordering Provider: NINA MACIEL pt. seen and examined in icu. h/h trending down. seen on vent, settings reviewed. good uop. d/w rn. Objective Vital Signs Date Time Temp Pulse Resp B/P Pulse Ox O2 Delivery O2 Flow Rate FiO2 04/25/17 06:00 12 144/75 100 Mechanical Ventilator 04/25/17 05:11 80 30 04/25/17 04:00 97.5 04/21/17 16:12 6.0 Intake and Output 04/24/17 04/24/17 04/25/17 15:00 23:00 07:00 Intake Total 990 ml 525 ml 425 ml Output Total 495 ml 770 ml 385 ml Balance 495 ml -245 ml 40 ml Exam HEENT: Head is normocephalic. NECK: Supple. HEART: Irregular LUNGS: Show diminished breath sounds at base. ABDOMEN: Soft, nontender to palpation without rebound or guarding. EXTREMITIES: Negative for clubbing, cyanosis. Positive edema, DERMATOLOGIC: No rashes. MUSCULOSKELETAL: No joint effusions, NEUROLOGIC: No change in exam. Results/Medications Result Diagram: 04/25/17 0430 04/25/17 0430 Results 24 hrs Laboratory Tests Test 04/24/17 12:24 04/24/17 18:03 04/25/17 00:46 04/25/17 04:30 Bedside Glucose 133 166 160 White Blood Count 17.7 H Red Blood Count 2.37 L Hemoglobin 7.7 L Hematocrit 25.5 L Mean Corpuscular Volume 107.6 H Mean Corpuscular Hemoglobin 32.5 Mean Corpuscular Hemoglobin Concent 30.2 L Red Cell Distribution Width 14.6 H Platelet Count 408 Mean Platelet Volume 11.6 H Neutrophils % 83.1 H Lymphocytes % 5.5 L Monocytes % 7.3 Eosinophils % 0.0 Basophils % 0.1 Nucleated Red Blood Cells % 0.0 Neutrophils # 14.7 H Lymphocytes # 1.0 Monocytes # 1.3 H Eosinophils # 0.0 Basophils # 0.0 Nucleated Red Blood Cells # 0.0 Sodium Level 144 Potassium Level 4.1 Chloride Level 114 H Carbon Dioxide Level 28 Anion Gap 6 L Blood Urea Nitrogen 73 H Creatinine 1.19 H Glucose Level 128 Calcium Level 8.5 Phosphorus Level 3.8 Magnesium Level 2.2 Total Bilirubin 0.0 L Direct Bilirubin 0.00 Indirect Bilirubin 0.0 Aspartate Amino Transf (AST/SGOT) 22 Alanine Aminotransferase (ALT/SGPT) 43 Alkaline Phosphatase 92 B-Type Natriuretic Peptide 50165 H Total Protein 4.9 L Albumin 2.4 L Globulin 2.50 Albumin/Globulin Ratio 0.96 Test 04/25/17 06:13 Bedside Glucose 138 Medications Current Medications Norepinephrine/ Dextrose (Levophed/D5W) 500 ml @ 0 mls/hr TITRATE IV Last administered on 04/14/17 10:24; Admin Dose 18.75 MLS/HR; Start 04/11/17 at 12:30 Aspirin (Aspirin) 325 mg DAILY NGT Last administered on 04/25/17 08:39; Admin Dose 325 MG; Start 04/12/17 at 09:00 Metoprolol Tartrate (Lopressor) 25 mg BID NGT Last administered on 04/25/17 08 :39; Admin Dose 25 MG; Start 04/11/17 at 21:00 Metoprolol Tartrate (Lopressor) 5 mg Q4H PRN IV HR>110 Hold SBP<110 Last administered on 04/20/17 17:36; Admin Dose 5 MG; Start 04/11/17 at 13:30 Lansoprazole 30 mg 30 mg DAILY GTB Last administered on 04/25/17 08:39; Admin Dose 30 MG; Start 04/12/17 at 09:00 Phenylephrine HCl/ Dextrose ([place]-Syneph/D5W) 500 ml @ 0 mls/hr TITRATE IV Last administered on 04/12/17 02:52; Admin Dose 75 MLS/HR; Start 04/11/17 at 16:00 Miscellaneous Information 1 ea NOTE XX ; Start 04/11/17 at 16:30 Glucose (Glutose) 15 gm Q15M PRN PO DECREASED GLUCOSE; Start 04/11/17 at 16:30 Glucose (Glutose) 22.5 gm Q15M PRN PO DECREASED GLUCOSE; Start 04/11/17 at 16: 30 Dextrose (D50w Syringe) 25 ml Q15M PRN IV DECREASED GLUCOSE Last administered on 04/12/17 23:56; Admin Dose 25 ML; Start 04/11/17 at 16:30 Dextrose (D50w Syringe) 50 ml Q15M PRN IV DECREASED GLUCOSE; Start 04/11/17 at 16:30 Glucagon (Glucagen) 1 mg Q15M PRN IM DECREASED GLUCOSE; Start 04/11/17 at 16:30 Glucose 15 gm 15 gm Q15M PRN BUCCAL DECREASED GLUCOSE; Start 04/11/17 at 16:30 Midazolam HCl 50 ml @ 1 mls/hr TITRATE IV Last administered on 04/13/17 04:30; Admin Dose 2 MLS/HR; Start 04/11/17 at 23:30 Fentanyl (Sublimaze) 100 ml @ 0.5 mls/hr TITRATE IV Last administered on 02:48; Admin Dose 0.5 MLS/HR; Start 04/12/17 at 09:30 Metoclopramide HCl (Reglan) 10 mg Q6 IV Last administered on 04/25/17 06:02; Admin Dose 10 MG; Start 04/12/17 at 18:00 Insulin Aspart (Novolog Insulin Pen) NOVOLOG *MILD* ALGORI... Q6H SC Last administered on 04/25/17 00:50; Admin Dose 1 UNIT; Start 04/15/17 at 00:00 Metronidazole (Flagyl) 500 mg Q8 NGT Last administered on 04/25/17 06:02; Admin Dose 500 MG; Start 04/15/17 at 14:00 IV Flush (NS 10 ml) 10 ml PRN PRN IV FLUSH LINE; Start 04/15/17 at 13:00 Hydrocortisone (Solu-Cortef) 25 mg TID IV Last administered on 04/25/17 08:39 ; Admin Dose 25 MG; Start 04/16/17 at 13:00 Amiodarone HCl (Cordarone) 200 mg BID GTB Last administered on 04/25/17 08:39 ; Admin Dose 200 MG; Start 04/16/17 at 13:00 Diltiazem HCl (Cardizem Iv) 5 mg Q1H PRN IV AFIB GREATER THAN 110 Last administered on 04/17/17 16:41; Admin Dose 5 MG; Start 04/16/17 at 13:00 Enoxaparin Sodium (Lovenox) 40 mg HS SC Last administered on 04/17/17 20:38; Admin Dose 40 MG; Start 04/17/17 at 21:00; Status Future Hold Heparin Sodium (Porcine) (Heparin (5000 Units/0.5 ml)) 5,000 unit BID SC Last administered on 04/25/17 08:41; Admin Dose 5,000 UNIT; Start 04/18/17 at 16:22 Acetaminophen/ Hydrocodone Bitart ([place] (5/325)) 2 tab Q4H PRN NGT MODERATE PAIN LEVEL 4-6 Last administered on 04/24/17 09:21; Admin Dose 2 TAB; Start 04/18/17 at 17:30 Citalopram Hydrobromide (Celexa) 20 mg DAILY NGT Last administered on 08:39; Admin Dose 20 MG; Start 04/19/17 at 09:00 Hydralazine HCl 20 mg 20 mg Q6H PRN IV sbp ABOVE 160 Last administered on 12:09; Admin Dose 20 MG; Start 04/18/17 at 18:30 Caspofungin 50 mg/ Sodium Chloride 250 ml @ 250 mls/hr Q24H IV Last administered on 04/24/17 09:20; Admin Dose 250 MLS/HR; Start 04/21/17 at 10:00 Meropenem/Sodium Chloride (Merrem 1 Gm/50 ml (Pmx)) 50 ml @ 200 mls/hr Q12 IVPB Last administered on 04/25/17 08:39; Admin Dose 200 MLS/HR; Start at 21:00 Chlorhexidine Gluconate (Peridex) 15 ml BID MT Last administered on 04/25/17 08:39; Admin Dose 15 ML; Start 04/22/17 at 21:00 Vitamin A/Vitamin D (Vitamin A & D Oint) 1 applic TID TOP Last administered on 04/25/17 08:41; Admin Dose 1 APPLIC; Start 04/22/17 at 21:00 Vitamin A/Vitamin D (Vitamin A & D Oint) 1 applic TID PRN TOP DRYNESS Last administered on 04/22/17 15:29; Admin Dose 1 APPLIC; Start 04/22/17 at 15:00 Acetaminophen/ Hydrocodone Bitart ([place] (5/325)) 1 tab Q6H GTB Last administered on 04/24/17 21:59; Admin Dose 1 TAB; Start 04/22/17 at 21:30 Valacyclovir HCl (Valtrex) 500 mg BID PO Last administered on 04/25/17 08:39; Admin Dose 500 MG; Start 04/24/17 at 21:00; Stop 05/01/17 at 21:59 Assessment/Plan Chief Complaint/Hosp Course 1. Status post code arrest -Etiology was respiratory due to hypoxemia -Patient currently stable on ventilatory support -Monitor closely 2. Nonoliguric keyonna. With previously normal baseline creatinine. Etiology is likely secondary to septic KEYONNA with possible ATN -Renal function has been stable, -Continue treatment plan. Supportive care renally dose meds avoid nephrotoxins -Follow-up renal panel - 3. Sepsis, status post shock. Etiology is likely secondary to aspiration pneumonia, fungemia -Patient currently off pressors. Remains on antibiotics, antifungals - Patient's blood cultures have been reviewed. - Continue current treatment plan Follow-up with infectious disease 3. Ventilator dependent respiratory failure. etiology secondary to pneumonia, CHF -Vent settings and ABG have been reviewed -Follow-up with pulmonary -ENT consult has been placed 4. Volume overload. Etiology likely secondary to sepsis capillary leak. Possible diastolic heart failure. -Continue Lasix 5. Elevated troponin. Possible non-STEMI type II. We will continue to monitor follow-up with cardiology 6. History of adrenal insufficiency. -Patient currently on stress steroids, -Appreciate endocrinology evaluation 7. Acute encephalopathy etiologies toxic metabolic, possible anoxic injury. Mental status is improving, patient following commands CT scan showed no acute finding Appreciate Dr. Ellis evaluation -Continue to monitor closely 8. possible acute cholecystitis -Patient's HIDA scan was positive - cholecystostomy drain was not placed due to insufficient fluid. -No plan for drain placement at this time. I discussed case with general surgery Appreciate surgery's evaluation. 9. Hypothyroidism continue Synthroid 10. Anemia. -Hemoglobin levels have declined, transfuse today. 11. Mineral bone disorder will monitor calcium phosphorus levels 12. h/o tongue cancer with resection 13. History of diastolic heart failure/coronary disease -Continue medical management 14. Leukocytosis. -Etiology is likely secondary sepsis, steroids. -Slowly improving as steroids are being weaned down - Follow-up with infectious disease. 15. Hypomagnesemia. Continue to monitor and replete as needed 16. Left upper extremity DVT. Patient's on heparin and aspirin. Continue to monitor 17. Dysphagia status post PEG -Resume tube feedings, if no further episodes of emesis 18. Arrhythmia Status post amiodarone drip Follow-up with cardio I spent greater than 40 minutes of critical care time with this pt Problems: TAVO WARD MD Apr 25, 2017 09:19
[2017-04-25] MEDS: CASPOFUNGIN 50 MG in NS 250 ML IV SCH (09:37)
--- NOTE | 2017-04-25 11:09 | PN ---
Date/Time of Note Date/Time of Note DATE: 04/25/17 TIME: 11:06 Assessment/Plan Lines/Catheters IV Catheter Type (from [facility]): PICC Line Latif in Place (from [facility]): Yes Assessment/Plan Chief Complaint/Hosp Course 1. Cholelithiasis ? cholecystitis: Ct abd: sludge and small stones in the gallbladder. No gallbladder wall thickening is noted with some pericholecystic fluid is present. Patient off pressors; GT/OGT no output; HIDA positive; IR drain placement cancelled by radiologist since US without evidence of infection. Therefore, Dr. Guadalupe believes the HIDA is false positive. Tolerating tube feeds, on hold currently for weaning -No surgical intervention required at this time -will await medical optimization 2. Pneumonia: Recurrent; no fevers; intubated; less secretion sputum cx: PSEUDOMONAS AERUGINOSA, K PNEUMO ESBL, NASRIN GLABRATA; appears comfortable -pulmonary toilet -abx per ID -diuresis -bipap 3. Vent dependent respiratory failure: 2/2 aspiration PNA+ CHF;reintubated, coded 04/21; comfortable; attempt to wean today -as above 4. Septic shock: improved -on abx -supportive 5. Uncontrolled Afib: s/p amiodarone drip, on oral amiodarone Now SR -medical optimization -lovenox 6. Elevated troponin:NSTEMI; septic shock/demand ischemia -trend 7. Leukocytosis with lactic acidosis: 2/2 pneumonia vs. steroids vs. other ( urine, blood cultures negative);increase today. -abx -judicious fluid management -supportive measures 8. KEYONNA: likely 2/2 septic shock;cr increased; s/p code; cr improving -judicious fluid management -avoid nephrotoxic agents 9. CHF: BNP 89343 -judicious fluid management -medical optimization 10. Adrenal Insufficiency -solucortef 11. Hypomagnesemia: normalized -electrolyte optimization -monitor for cardiac abnormalities 12. Hypothyroidism -cont. synthroid 13. Macrocytic anemia: chronic vs. dilutional vs. acute bleed vs. b12/folate deficiency; h/h stable; noted gtube output coffee ground yesterday (? bleeding from mouth); h/h stable -monitor -Transfuse as needed 14. Transaminitis: likely 2/2 septic shock vs. cholecystitis; normalized -trend, monitor 15. Diarrhea: 2/2 abx vs. enteritis: resolved; tolerating tf -? probiotics 16. Thrombocytosis: 2/2 inflammatory vs. drug induced vs. other; normalized -monitor -bleeding precautions -supportive 17. Encephalopathy: 2/2 toxic metabolic vs. anoxic injury; CT: No acute intracranial hemorrhage or mass effect. Mild chronic microvascular disease and intracranial atherosclerosis; more alert and communicative; EEG shows no seizure activity -supportive 18. Bilateral upper extremity edema: likely 2/2 decreased movement vs. thrombosis; initial doppler negative, repeat doppler left arm (+) Thrombus -elevate extremities -supportive -anticoagulation 19. Hypoalbuminemia: 2/2 malnutrition +/- inflammation; decreased; tolerating tf -nutrition optimization -as above Patient seen and examined in collaboration with Dr. Justus Antonio Problems: Subjective 24 Hr Interval Summary Responsive. feels well. reports sleeping well last night. +bm, tolerating tf. comfortable on vent. No abdominal pain. No fevers, chills, n/v/d, sob, cp, palpitations, metzger, dizziness, sz Exam/Review of Systems Vital Signs Vitals Vital Signs Date Time Temp Pulse Resp B/P Pulse Ox O2 Delivery O2 Flow Rate FiO2 04/25/17 08:00 30 04/25/17 06:00 12 144/75 100 Mechanical Ventilator 04/25/17 05:11 80 04/25/17 04:00 97.5 04/21/17 16:12 6.0 Intake and Output 04/24/17 04/24/17 04/25/17 15:00 23:00 07:00 Intake Total 990 ml 525 ml 425 ml Output Total 495 ml 770 ml 385 ml Balance 495 ml -245 ml 40 ml Exam Free Text/Dictation Constitutional: Awake, appears comfortable Head: atraumatic, normocephalic Eyes: PERRL, nl lids, nl sclera ENMT: No mucosa pink and moist (pink and dry), reintubated Neck: non-tender, supple Respiratory: no wheezing, rhonchi, comfortable Cardiovascular: nl pulses, regular rate and rhythm, NSR, Gastrointestinal: soft, GT tubes site no erythema, no drainage, min tenderness, Genitourinary - Female: nl external genitalia Musculoskeletal: nl extremities to inspection Extremities: normal pulses, bilateral upper/lower extremity edema Neurological: more responsive Skin: nl turgor, No rash or lesions Lymph: nl lymph nodes Results Result Diagram: 04/25/17 0430 04/25/17 0430 ADDISON FREGOSO NP Apr 25, 2017 11:09
--- NOTE | 2017-04-25 12:00 | CONS ---
Date/Time of Note Date/Time of Note DATE: 04/25/17 TIME: 11:59 Consult Date/Type/Reason Admit Date/Time Apr 11, 2017 at 11:28 Initial Consult Date 04/12/17 Type of Consultation: Pulmonary ICU Ordering Provider: NINA MACIEL DO Subjective Patient appears comfortable this morning more awake more alert. Tolerating SIMV. Objective Vital Signs Date Time Temp Pulse Resp B/P Pulse Ox O2 Delivery O2 Flow Rate FiO2 04/25/17 08:00 30 04/25/17 08:00 89 04/25/17 06:00 12 144/75 100 Mechanical Ventilator 04/25/17 04:00 97.5 04/21/17 16:12 6.0 Intake and Output 04/24/17 04/24/17 04/25/17 15:00 23:00 07:00 Intake Total 990 ml 525 ml 425 ml Output Total 495 ml 770 ml 385 ml Balance 495 ml -245 ml 40 ml Exam GENERAL: Chronically ill-appearing elderly lady on mechanical ventilation, awake and alert follows simple commands VITAL SIGNS: per chart NECK: Supple. No JVD or lymphadenopathy. Stoma site has dressing in place CARDIAC EXAM: S1, S2. No added sounds or murmurs. CHEST: Diminished air entry bilaterally poor effort ABDOMEN: Soft, nontender. No guarding or rebound. EXTREMITIES: No cyanosis, clubbing edema +2 NEUROLOGIC: Generalized weakness. Results/Medications Result Diagram: 04/25/17 0430 04/25/17 0430 Results 24 hrs Laboratory Tests Test 04/24/17 12:24 04/24/17 18:03 04/25/17 00:46 04/25/17 04:30 Bedside Glucose 133 166 160 White Blood Count 17.7 H Red Blood Count 2.37 L Hemoglobin 7.7 L Hematocrit 25.5 L Mean Corpuscular Volume 107.6 H Mean Corpuscular Hemoglobin 32.5 Mean Corpuscular Hemoglobin Concent 30.2 L Red Cell Distribution Width 14.6 H Platelet Count 408 Mean Platelet Volume 11.6 H Neutrophils % 83.1 H Lymphocytes % 5.5 L Monocytes % 7.3 Eosinophils % 0.0 Basophils % 0.1 Nucleated Red Blood Cells % 0.0 Neutrophils # 14.7 H Lymphocytes # 1.0 Monocytes # 1.3 H Eosinophils # 0.0 Basophils # 0.0 Nucleated Red Blood Cells # 0.0 Sodium Level 144 Potassium Level 4.1 Chloride Level 114 H Carbon Dioxide Level 28 Anion Gap 6 L Blood Urea Nitrogen 73 H Creatinine 1.19 H Glucose Level 128 Calcium Level 8.5 Phosphorus Level 3.8 Magnesium Level 2.2 Total Bilirubin 0.0 L Direct Bilirubin 0.00 Indirect Bilirubin 0.0 Aspartate Amino Transf (AST/SGOT) 22 Alanine Aminotransferase (ALT/SGPT) 43 Alkaline Phosphatase 92 B-Type Natriuretic Peptide 09844 H Total Protein 4.9 L Albumin 2.4 L Globulin 2.50 Albumin/Globulin Ratio 0.96 Test 04/25/17 06:13 04/25/17 11:52 Bedside Glucose 138 128 Medications Current Medications Norepinephrine/ Dextrose (Levophed/D5W) 500 ml @ 0 mls/hr TITRATE IV Last administered on 04/14/17 10:24; Admin Dose 18.75 MLS/HR; Start 04/11/17 at 12:30 Aspirin (Aspirin) 325 mg DAILY NGT Last administered on 04/25/17 08:39; Admin Dose 325 MG; Start 04/12/17 at 09:00 Metoprolol Tartrate (Lopressor) 25 mg BID NGT Last administered on 04/25/17 08 :39; Admin Dose 25 MG; Start 04/11/17 at 21:00 Metoprolol Tartrate (Lopressor) 5 mg Q4H PRN IV HR>110 Hold SBP<110 Last administered on 04/20/17 17:36; Admin Dose 5 MG; Start 04/11/17 at 13:30 Lansoprazole 30 mg 30 mg DAILY GTB Last administered on 04/25/17 08:39; Admin Dose 30 MG; Start 04/12/17 at 09:00 Phenylephrine HCl/ Dextrose ([place]uy-Syneph/D5W) 500 ml @ 0 mls/hr TITRATE IV Last administered on 04/12/17 02:52; Admin Dose 75 MLS/HR; Start 04/11/17 at 16:00 Miscellaneous Information 1 ea NOTE XX ; Start 04/11/17 at 16:30 Glucose (Glutose) 15 gm Q15M PRN PO DECREASED GLUCOSE; Start 04/11/17 at 16:30 Glucose (Glutose) 22.5 gm Q15M PRN PO DECREASED GLUCOSE; Start 04/11/17 at 16: 30 Dextrose (D50w Syringe) 25 ml Q15M PRN IV DECREASED GLUCOSE Last administered on 04/12/17 23:56; Admin Dose 25 ML; Start 04/11/17 at 16:30 Dextrose (D50w Syringe) 50 ml Q15M PRN IV DECREASED GLUCOSE; Start 04/11/17 at 16:30 Glucagon (Glucagen) 1 mg Q15M PRN IM DECREASED GLUCOSE; Start 04/11/17 at 16:30 Glucose 15 gm 15 gm Q15M PRN BUCCAL DECREASED GLUCOSE; Start 04/11/17 at 16:30 Midazolam HCl 50 ml @ 1 mls/hr TITRATE IV Last administered on 04/13/17 04:30; Admin Dose 2 MLS/HR; Start 04/11/17 at 23:30 Fentanyl (Sublimaze) 100 ml @ 0.5 mls/hr TITRATE IV Last administered on 02:48; Admin Dose 0.5 MLS/HR; Start 04/12/17 at 09:30 Metoclopramide HCl (Reglan) 10 mg Q6 IV Last administered on 04/25/17 11:51; Admin Dose 10 MG; Start 04/12/17 at 18:00 Insulin Aspart (Novolog Insulin Pen) NOVOLOG *MILD* ALGORI... Q6H SC Last administered on 04/25/17 00:50; Admin Dose 1 UNIT; Start 04/15/17 at 00:00 Metronidazole (Flagyl) 500 mg Q8 NGT Last administered on 04/25/17 06:02; Admin Dose 500 MG; Start 04/15/17 at 14:00 IV Flush (NS 10 ml) 10 ml PRN PRN IV FLUSH LINE; Start 04/15/17 at 13:00 Hydrocortisone (Solu-Cortef) 25 mg TID IV Last administered on 04/25/17 08:39 ; Admin Dose 25 MG; Start 04/16/17 at 13:00 Amiodarone HCl (Cordarone) 200 mg BID GTB Last administered on 04/25/17 08:39 ; Admin Dose 200 MG; Start 04/16/17 at 13:00 Diltiazem HCl (Cardizem Iv) 5 mg Q1H PRN IV AFIB GREATER THAN 110 Last administered on 04/17/17 16:41; Admin Dose 5 MG; Start 04/16/17 at 13:00 Enoxaparin Sodium (Lovenox) 40 mg HS SC Last administered on 04/17/17 20:38; Admin Dose 40 MG; Start 04/17/17 at 21:00; Status Future Hold Heparin Sodium (Porcine) (Heparin (5000 Units/0.5 ml)) 5,000 unit BID SC Last administered on 04/25/17 08:41; Admin Dose 5,000 UNIT; Start 04/18/17 at 16:22 Acetaminophen/ Hydrocodone Bitart ([place] (5/325)) 2 tab Q4H PRN NGT MODERATE PAIN LEVEL 4-6 Last administered on 04/24/17 09:21; Admin Dose 2 TAB; Start 04/18/17 at 17:30 Citalopram Hydrobromide (Celexa) 20 mg DAILY NGT Last administered on 08:39; Admin Dose 20 MG; Start 04/19/17 at 09:00 Hydralazine HCl 20 mg 20 mg Q6H PRN IV sbp ABOVE 160 Last administered on 12:09; Admin Dose 20 MG; Start 04/18/17 at 18:30 Caspofungin 50 mg/ Sodium Chloride 250 ml @ 250 mls/hr Q24H IV Last administered on 04/25/17 09:37; Admin Dose 250 MLS/HR; Start 04/21/17 at 10:00 Meropenem/Sodium Chloride (Merrem 1 Gm/50 ml (Pmx)) 50 ml @ 200 mls/hr Q12 IVPB Last administered on 04/25/17 08:39; Admin Dose 200 MLS/HR; Start at 21:00 Chlorhexidine Gluconate (Peridex) 15 ml BID MT Last administered on 04/25/17 08:39; Admin Dose 15 ML; Start 04/22/17 at 21:00 Vitamin A/Vitamin D (Vitamin A & D Oint) 1 applic TID TOP Last administered on 04/25/17 08:41; Admin Dose 1 APPLIC; Start 04/22/17 at 21:00 Vitamin A/Vitamin D (Vitamin A & D Oint) 1 applic TID PRN TOP DRYNESS Last administered on 04/22/17 15:29; Admin Dose 1 APPLIC; Start 04/22/17 at 15:00 Acetaminophen/ Hydrocodone Bitart ([place] (5/325)) 1 tab Q6H GTB Last administered on 04/25/17 09:37; Admin Dose 1 TAB; Start 04/22/17 at 21:30 Valacyclovir HCl (Valtrex) 500 mg BID PO Last administered on 04/25/17 08:39; Admin Dose 500 MG; Start 04/24/17 at 21:00; Stop 05/01/17 at 21:59 Assessment/Plan Chief Complaint/Hosp Course IMP: 1. Status post septic Shock--likely due to multilobar aspiration pneumonia vs. HCAP possibly secondary to acute cholecystitis also 2. Multifocal pneumonia aspiration vs.HCAP, persistent leukocytosis chest x-ray shows improved lung aeration 3. Hypercapnic Respiratory Failure--likely due to critical illness myopathy/ neuropathy 4. Status post lactic acidosis. 5. Demand Ischemia 6. Cholecystitis, 7. Dysphagia continues tube feeding RECS: 1. Continue mechanical ventilation. CPAP trial this morning 2. Oral care. 3. ABG: Monitor PCO2 4. Tube feeding 40 cc an hour 5. Continue antibiotics 6. Continue physical therapy 7. Surgical recommendations 8. Transfusion packed red blood cells if hemoglobin continues to drop Critical care time 40 minutes. Case d/w RN and patient's Problems: DARWIN CRAWFORD MD, [facility] Apr 25, 2017 12:00
--- NOTE | 2017-04-25 14:01 | CONS ---
Date/Time of Note Date/Time of Note DATE: 04/25/17 TIME: 13:59 Assessment/Plan Assessment/Plan Chief Complaint/Hosp Course No acute changes patient is awake, follows commands, comfortable on vent Temperature 97.3 pulse 82 respirations 18 blood pressure 153/74 saturation 100 on 30 FiO2 WBC 17.7 H&H 7.7 and 25.5 platelets 408 neutrophils 83.1 BUN 73 creatinine 1.19 Repeat blood culture on April 24 negative preliminary. Blood culture on April 20 growing yeast, repeat sputum culture on April 21 growing Ramonita species not albicans and Ramonita glabrata Indwelling's: Endotracheal tube, NG tube, Latfi, PICC line placed on April 15 Antibiotics: Flagyl Cancidas, meropenem Physical examination: Well-developed fragile chronically ill-appearing elderly woman who is intubated, in no distress. Head atraumatic, normocephalic sclera nonicteric. Neck is supple. Chest rise symmetrical breath sounds with scattered rhonchi. Abdomen soft, bowel tones present. Extremities with bilateral edema. Assessment: 1. Fungemia secondary to #2 2. Pneumonia with repeat sputum culture growing yeast 3. Resolving sepsis, status post shock 4. Acute on chronic respiratory failure, status post 3 intubated 5. History of tongue cancer 6. Gallstones, no evidence of cholecystitis 7. History of C. difficile colitis 8. Oral lesions, likely secondary to endotracheal tube, started on empiric Valtrex Plan: Remains stable, continue present care, antibiotics, vent management as per pulmonary recommendations Discussed with staff and at bedside Problems: Consultation Date/Type/Reason Admit Date/Time Apr 11, 2017 at 11:28 Initial Consult Date 04/12/17 Type of Consultation: ID Referring Provider: NINA MACIEL DO Exam/Review of Systems Vital Signs Vitals Vital Signs Date Time Temp Pulse Resp B/P Pulse Ox O2 Delivery O2 Flow Rate FiO2 04/25/17 13:00 75 20 153/75 99 Mechanical Ventilator 04/25/17 12:00 97.3 04/25/17 08:00 30 04/21/17 16:12 6.0 Intake and Output 04/24/17 04/24/17 04/25/17 15:00 23:00 07:00 Intake Total 990 ml 525 ml 425 ml Output Total 495 ml 770 ml 385 ml Balance 495 ml -245 ml 40 ml Results Result Diagram: 04/25/17 0430 04/25/17 0430 Results 24 hrs Laboratory Tests Test 04/24/17 18:03 04/25/17 00:46 04/25/17 04:30 04/25/17 06:13 Bedside Glucose 166 160 138 White Blood Count 17.7 H Red Blood Count 2.37 L Hemoglobin 7.7 L Hematocrit 25.5 L Mean Corpuscular Volume 107.6 H Mean Corpuscular Hemoglobin 32.5 Mean Corpuscular Hemoglobin Concent 30.2 L Red Cell Distribution Width 14.6 H Platelet Count 408 Mean Platelet Volume 11.6 H Neutrophils % 83.1 H Lymphocytes % 5.5 L Monocytes % 7.3 Eosinophils % 0.0 Basophils % 0.1 Nucleated Red Blood Cells % 0.0 Neutrophils # 14.7 H Lymphocytes # 1.0 Monocytes # 1.3 H Eosinophils # 0.0 Basophils # 0.0 Nucleated Red Blood Cells # 0.0 Sodium Level 144 Potassium Level 4.1 Chloride Level 114 H Carbon Dioxide Level 28 Anion Gap 6 L Blood Urea Nitrogen 73 H Creatinine 1.19 H Glucose Level 128 Calcium Level 8.5 Phosphorus Level 3.8 Magnesium Level 2.2 Total Bilirubin 0.0 L Direct Bilirubin 0.00 Indirect Bilirubin 0.0 Aspartate Amino Transf (AST/SGOT) 22 Alanine Aminotransferase (ALT/SGPT) 43 Alkaline Phosphatase 92 B-Type Natriuretic Peptide 54414 H Total Protein 4.9 L Albumin 2.4 L Globulin 2.50 Albumin/Globulin Ratio 0.96 Test 04/25/17 11:52 Bedside Glucose 128 Medications Medications Current Medications Norepinephrine/ Dextrose (Levophed/D5W) 500 ml @ 0 mls/hr TITRATE IV Last administered on 04/14/17 10:24; Admin Dose 18.75 MLS/HR; Start 04/11/17 at 12:30 Aspirin (Aspirin) 325 mg DAILY NGT Last administered on 04/25/17 08:39; Admin Dose 325 MG; Start 04/12/17 at 09:00 Metoprolol Tartrate (Lopressor) 25 mg BID NGT Last administered on 04/25/17 08 :39; Admin Dose 25 MG; Start 04/11/17 at 21:00 Metoprolol Tartrate (Lopressor) 5 mg Q4H PRN IV HR>110 Hold SBP<110 Last administered on 04/20/17 17:36; Admin Dose 5 MG; Start 04/11/17 at 13:30 Lansoprazole 30 mg 30 mg DAILY GTB Last administered on 04/25/17 08:39; Admin Dose 30 MG; Start 04/12/17 at 09:00 Phenylephrine HCl/ Dextrose ([place]uy-Syneph/D5W) 500 ml @ 0 mls/hr TITRATE IV Last administered on 04/12/17 02:52; Admin Dose 75 MLS/HR; Start 04/11/17 at 16:00 Miscellaneous Information 1 ea NOTE XX ; Start 04/11/17 at 16:30 Glucose (Glutose) 15 gm Q15M PRN PO DECREASED GLUCOSE; Start 04/11/17 at 16:30 Glucose (Glutose) 22.5 gm Q15M PRN PO DECREASED GLUCOSE; Start 04/11/17 at 16: 30 Dextrose (D50w Syringe) 25 ml Q15M PRN IV DECREASED GLUCOSE Last administered on 04/12/17 23:56; Admin Dose 25 ML; Start 04/11/17 at 16:30 Dextrose (D50w Syringe) 50 ml Q15M PRN IV DECREASED GLUCOSE; Start 04/11/17 at 16:30 Glucagon (Glucagen) 1 mg Q15M PRN IM DECREASED GLUCOSE; Start 04/11/17 at 16:30 Glucose 15 gm 15 gm Q15M PRN BUCCAL DECREASED GLUCOSE; Start 04/11/17 at 16:30 Midazolam HCl 50 ml @ 1 mls/hr TITRATE IV Last administered on 04/13/17 04:30; Admin Dose 2 MLS/HR; Start 04/11/17 at 23:30 Fentanyl (Sublimaze) 100 ml @ 0.5 mls/hr TITRATE IV Last administered on 02:48; Admin Dose 0.5 MLS/HR; Start 04/12/17 at 09:30 Metoclopramide HCl (Reglan) 10 mg Q6 IV Last administered on 04/25/17 11:51; Admin Dose 10 MG; Start 04/12/17 at 18:00 Insulin Aspart (Novolog Insulin Pen) NOVOLOG *MILD* ALGORI... Q6H SC Last administered on 04/25/17 00:50; Admin Dose 1 UNIT; Start 04/15/17 at 00:00 Metronidazole (Flagyl) 500 mg Q8 NGT Last administered on 04/25/17 13:02; Admin Dose 500 MG; Start 04/15/17 at 14:00 IV Flush (NS 10 ml) 10 ml PRN PRN IV FLUSH LINE; Start 04/15/17 at 13:00 Hydrocortisone (Solu-Cortef) 25 mg TID IV Last administered on 04/25/17 13:02 ; Admin Dose 25 MG; Start 04/16/17 at 13:00 Amiodarone HCl (Cordarone) 200 mg BID GTB Last administered on 04/25/17 08:39 ; Admin Dose 200 MG; Start 04/16/17 at 13:00 Diltiazem HCl (Cardizem Iv) 5 mg Q1H PRN IV AFIB GREATER THAN 110 Last administered on 04/17/17 16:41; Admin Dose 5 MG; Start 04/16/17 at 13:00 Enoxaparin Sodium (Lovenox) 40 mg HS SC Last administered on 04/17/17 20:38; Admin Dose 40 MG; Start 04/17/17 at 21:00; Status Future Hold Heparin Sodium (Porcine) (Heparin (5000 Units/0.5 ml)) 5,000 unit BID SC Last administered on 04/25/17 08:41; Admin Dose 5,000 UNIT; Start 04/18/17 at 16:22 Acetaminophen/ Hydrocodone Bitart ([place] (5/325)) 2 tab Q4H PRN NGT MODERATE PAIN LEVEL 4-6 Last administered on 04/24/17 09:21; Admin Dose 2 TAB; Start 04/18/17 at 17:30 Citalopram Hydrobromide (Celexa) 20 mg DAILY NGT Last administered on 08:39; Admin Dose 20 MG; Start 04/19/17 at 09:00 Hydralazine HCl 20 mg 20 mg Q6H PRN IV sbp ABOVE 160 Last administered on 12:09; Admin Dose 20 MG; Start 04/18/17 at 18:30 Caspofungin 50 mg/ Sodium Chloride 250 ml @ 250 mls/hr Q24H IV Last administered on 04/25/17 09:37; Admin Dose 250 MLS/HR; Start 04/21/17 at 10:00 Meropenem/Sodium Chloride (Merrem 1 Gm/50 ml (Pmx)) 50 ml @ 200 mls/hr Q12 IVPB Last administered on 04/25/17 08:39; Admin Dose 200 MLS/HR; Start at 21:00 Chlorhexidine Gluconate (Peridex) 15 ml BID MT Last administered on 04/25/17 08:39; Admin Dose 15 ML; Start 04/22/17 at 21:00 Vitamin A/Vitamin D (Vitamin A & D Oint) 1 applic TID TOP Last administered on 04/25/17 13:02; Admin Dose 1 APPLIC; Start 04/22/17 at 21:00 Vitamin A/Vitamin D (Vitamin A & D Oint) 1 applic TID PRN TOP DRYNESS Last administered on 04/22/17 15:29; Admin Dose 1 APPLIC; Start 04/22/17 at 15:00 Acetaminophen/ Hydrocodone Bitart ([place] (5/325)) 1 tab Q6H GTB Last administered on 04/25/17 09:37; Admin Dose 1 TAB; Start 04/22/17 at 21:30 Valacyclovir HCl (Valtrex) 500 mg BID PO Last administered on 04/25/17 08:39; Admin Dose 500 MG; Start 04/24/17 at 21:00; Stop 05/01/17 at 21:59 LORETO MCKEON NP Apr 25, 2017 14:01
[2017-04-25 14:44] LABS: AADO2 Arterial 112.7 mmHg (7.0-24.0); Allen Test ACCEPTAB; Arterial Base Excess 1.7 mmol/L (-3.0-3); Arterial COHb 0.3 % (0.0-3.0); Arterial Fraction of Oxyhgb 92.3 % (93.0-99.0); Arterial HCO3 25.2 mmol/L (22.0-26.0); Arterial MetHb 0.4 % (0.0-1.5); Arterial Total Hemglobin 7.9 g/dl (12.0-18.0); Blood Gas PS 10; MODE VENT - CPAP
--- NOTE | 2017-04-25 16:39 | CONS ---
Date/Time of Note Date/Time of Note DATE: 04/25/17 TIME: 16:37 Assessment/Plan Assessment/Plan Problems: (1) Steroid dependence Status: Chronic Comment: Continue with steroid replacement therapy Consultation Date/Type/Reason Admit Date/Time Apr 11, 2017 at 11:28 Initial Consult Date 04/14/17 Type of Consultation: Endocrinology Reason for Consultation Iatrogenic adrenal insufficiency Referring Provider: NINA MACIEL DO 24 HR Interval Summary Subjective hx not possible: pt non-verbal, pt critical status Exam/Review of Systems Vital Signs Vitals Vital Signs Date Time Temp Pulse Resp B/P Pulse Ox O2 Delivery O2 Flow Rate FiO2 04/25/17 15:50 76 19 100 30 04/25/17 13:00 153/75 Mechanical Ventilator 04/25/17 12:00 97.3 04/21/17 16:12 6.0 Intake and Output 04/24/17 04/24/17 04/25/17 15:00 23:00 07:00 Intake Total 990 ml 525 ml 425 ml Output Total 495 ml 770 ml 385 ml Balance 495 ml -245 ml 40 ml Exam Constitutional: non-verbal ENMT: intubated Respiratory: crackles/rales Results Result Diagram: 04/25/17 0430 04/25/17 0430 Results 24 hrs Laboratory Tests Test 04/24/17 18:03 04/25/17 00:46 04/25/17 04:30 04/25/17 06:13 Bedside Glucose 166 160 138 White Blood Count 17.7 H Red Blood Count 2.37 L Hemoglobin 7.7 L Hematocrit 25.5 L Mean Corpuscular Volume 107.6 H Mean Corpuscular Hemoglobin 32.5 Mean Corpuscular Hemoglobin Concent 30.2 L Red Cell Distribution Width 14.6 H Platelet Count 408 Mean Platelet Volume 11.6 H Neutrophils % 83.1 H Lymphocytes % 5.5 L Monocytes % 7.3 Eosinophils % 0.0 Basophils % 0.1 Nucleated Red Blood Cells % 0.0 Neutrophils # 14.7 H Lymphocytes # 1.0 Monocytes # 1.3 H Eosinophils # 0.0 Basophils # 0.0 Nucleated Red Blood Cells # 0.0 Sodium Level 144 Potassium Level 4.1 Chloride Level 114 H Carbon Dioxide Level 28 Anion Gap 6 L Blood Urea Nitrogen 73 H Creatinine 1.19 H Glucose Level 128 Calcium Level 8.5 Phosphorus Level 3.8 Magnesium Level 2.2 Total Bilirubin 0.0 L Direct Bilirubin 0.00 Indirect Bilirubin 0.0 Aspartate Amino Transf (AST/SGOT) 22 Alanine Aminotransferase (ALT/SGPT) 43 Alkaline Phosphatase 92 B-Type Natriuretic Peptide 37114 H Total Protein 4.9 L Albumin 2.4 L Globulin 2.50 Albumin/Globulin Ratio 0.96 Test 04/25/17 11:52 04/25/17 14:29 Bedside Glucose 128 Blood Gas Specimen Source Blood arterial Arterial Blood Date Drawn 04/25/2017 2:30:39 PM Arterial Blood pH (Temp corrected) 7.478 H Arterial Blood pCO2 (Temp correct) 34.8 L Arterial Blood pO2 (Temp corrected) 60.3 L Arterial Blood HCO3 25.2 Arterial Blood Base Excess 1.7 Arterial Blood Oxygen Saturation 93.0 L Jonn Test ACCEPTAB Arterial Blood Gas Puncture Site Right Radial Arterial Blood Carboxyhemoglobin 0.3 Arterial Blood Methemoglobin 0.4 Blood Gas A-a O2 Differential 112.7 H Oxyhemoglobin Percent 92.3 L Total Hemoglobin 7.9 L Blood Gas Temperature 37.0 Blood Gas Actual Respiration Rate 22 Blood Gas Modality VENT - CPAP FiO2 30.0 Blood Gas Low PEEP Setting 5.0 Blood Gas Pressure Support 10 Blood Gas Notified Whom JLD Blood Gas Notified Time 04/25/2017 2:44:09 PM Medications Medications Current Medications Norepinephrine/ Dextrose (Levophed/D5W) 500 ml @ 0 mls/hr TITRATE IV Last administered on 04/14/17 10:24; Admin Dose 18.75 MLS/HR; Start 04/11/17 at 12:30 Aspirin (Aspirin) 325 mg DAILY NGT Last administered on 04/25/17 08:39; Admin Dose 325 MG; Start 04/12/17 at 09:00 Metoprolol Tartrate (Lopressor) 25 mg BID NGT Last administered on 04/25/17 08 :39; Admin Dose 25 MG; Start 04/11/17 at 21:00 Metoprolol Tartrate (Lopressor) 5 mg Q4H PRN IV HR>110 Hold SBP<110 Last administered on 04/20/17 17:36; Admin Dose 5 MG; Start 04/11/17 at 13:30 Lansoprazole 30 mg 30 mg DAILY GTB Last administered on 04/25/17 08:39; Admin Dose 30 MG; Start 04/12/17 at 09:00 Phenylephrine HCl/ Dextrose ([place]uy-Syneph/D5W) 500 ml @ 0 mls/hr TITRATE IV Last administered on 04/12/17 02:52; Admin Dose 75 MLS/HR; Start 04/11/17 at 16:00 Miscellaneous Information 1 ea NOTE XX ; Start 04/11/17 at 16:30 Glucose (Glutose) 15 gm Q15M PRN PO DECREASED GLUCOSE; Start 04/11/17 at 16:30 Glucose (Glutose) 22.5 gm Q15M PRN PO DECREASED GLUCOSE; Start 04/11/17 at 16: 30 Dextrose (D50w Syringe) 25 ml Q15M PRN IV DECREASED GLUCOSE Last administered on 04/12/17 23:56; Admin Dose 25 ML; Start 04/11/17 at 16:30 Dextrose (D50w Syringe) 50 ml Q15M PRN IV DECREASED GLUCOSE; Start 04/11/17 at 16:30 Glucagon (Glucagen) 1 mg Q15M PRN IM DECREASED GLUCOSE; Start 04/11/17 at 16:30 Glucose 15 gm 15 gm Q15M PRN BUCCAL DECREASED GLUCOSE; Start 04/11/17 at 16:30 Midazolam HCl 50 ml @ 1 mls/hr TITRATE IV Last administered on 04/13/17 04:30; Admin Dose 2 MLS/HR; Start 04/11/17 at 23:30 Fentanyl (Sublimaze) 100 ml @ 0.5 mls/hr TITRATE IV Last administered on 02:48; Admin Dose 0.5 MLS/HR; Start 04/12/17 at 09:30 Metoclopramide HCl (Reglan) 10 mg Q6 IV Last administered on 04/25/17 11:51; Admin Dose 10 MG; Start 04/12/17 at 18:00 Insulin Aspart (Novolog Insulin Pen) NOVOLOG *MILD* ALGORI... Q6H SC Last administered on 04/25/17 00:50; Admin Dose 1 UNIT; Start 04/15/17 at 00:00 Metronidazole (Flagyl) 500 mg Q8 NGT Last administered on 04/25/17 13:02; Admin Dose 500 MG; Start 04/15/17 at 14:00 IV Flush (NS 10 ml) 10 ml PRN PRN IV FLUSH LINE; Start 04/15/17 at 13:00 Hydrocortisone (Solu-Cortef) 25 mg TID IV Last administered on 04/25/17 13:02 ; Admin Dose 25 MG; Start 04/16/17 at 13:00 Amiodarone HCl (Cordarone) 200 mg BID GTB Last administered on 04/25/17 08:39 ; Admin Dose 200 MG; Start 04/16/17 at 13:00 Diltiazem HCl (Cardizem Iv) 5 mg Q1H PRN IV AFIB GREATER THAN 110 Last administered on 04/17/17 16:41; Admin Dose 5 MG; Start 04/16/17 at 13:00 Enoxaparin Sodium (Lovenox) 40 mg HS SC Last administered on 04/17/17 20:38; Admin Dose 40 MG; Start 04/17/17 at 21:00; Status Future Hold Heparin Sodium (Porcine) (Heparin (5000 Units/0.5 ml)) 5,000 unit BID SC Last administered on 04/25/17 08:41; Admin Dose 5,000 UNIT; Start 04/18/17 at 16:22 Acetaminophen/ Hydrocodone Bitart ([place] (5/325)) 2 tab Q4H PRN NGT MODERATE PAIN LEVEL 4-6 Last administered on 04/24/17 09:21; Admin Dose 2 TAB; Start 04/18/17 at 17:30 Citalopram Hydrobromide (Celexa) 20 mg DAILY NGT Last administered on 08:39; Admin Dose 20 MG; Start 04/19/17 at 09:00 Hydralazine HCl 20 mg 20 mg Q6H PRN IV sbp ABOVE 160 Last administered on 12:09; Admin Dose 20 MG; Start 04/18/17 at 18:30 Caspofungin 50 mg/ Sodium Chloride 250 ml @ 250 mls/hr Q24H IV Last administered on 04/25/17 09:37; Admin Dose 250 MLS/HR; Start 04/21/17 at 10:00 Meropenem/Sodium Chloride (Merrem 1 Gm/50 ml (Pmx)) 50 ml @ 200 mls/hr Q12 IVPB Last administered on 04/25/17 08:39; Admin Dose 200 MLS/HR; Start at 21:00 Chlorhexidine Gluconate (Peridex) 15 ml BID MT Last administered on 04/25/17 08:39; Admin Dose 15 ML; Start 04/22/17 at 21:00 Vitamin A/Vitamin D (Vitamin A & D Oint) 1 applic TID TOP Last administered on 04/25/17 13:02; Admin Dose 1 APPLIC; Start 04/22/17 at 21:00 Vitamin A/Vitamin D (Vitamin A & D Oint) 1 applic TID PRN TOP DRYNESS Last administered on 04/22/17 15:29; Admin Dose 1 APPLIC; Start 04/22/17 at 15:00 Acetaminophen/ Hydrocodone Bitart ([place] (5/325)) 1 tab Q6H GTB Last administered on 04/25/17 15:29; Admin Dose 1 TAB; Start 04/22/17 at 21:30 Valacyclovir HCl (Valtrex) 500 mg BID PO Last administered on 04/25/17 08:39; Admin Dose 500 MG; Start 04/24/17 at 21:00; Stop 05/01/17 at 21:59 IZZY TYLER MD Apr 25, 2017 16:38
--- NOTE | 2017-04-25 18:41 | PN ---
Date/Time of Note Date/Time of Note DATE: 04/25/17 TIME: 18:39 Assessment/Plan VTE Prophylaxis VTE Prophylaxis Intervention: SCD's Lines/Catheters IV Catheter Type (from Nrsg): PICC Line Central line still needed: Yes Urinary Cath still in place: Yes Reason Cath still needed: other (indicate) Assessment/Plan Chief Complaint/Hosp Course 1. acute on chronic hypoxemic respiratory failure: s/p re-intubation on vent. 2. NSTEMI: due to demand ischemia. 3. CHF/ fluid overload: due to diastolic heart failure 4. moderate 5. Arrhythmia and P afib, frequent PVC: currently stable now 6. ANEMIA 7. pneumonia, severe leukocytosis now. 8. s/p sepsis and shock: off of levophed drip now. cont ASA vent support and abx as per PULM Team. correct lytes prn. will start on kcl bid cont ICU care. betablocker as long as BP is stable and is able to tolerate it. thyroid supplement . will closely monitor in ICU. s/p amiodarone drip. will cont po amiodarone. cont lasix IV BID. ADD ALDACTONE awaiting ENT consultation Problems: Subjective 24 Hr Interval Summary Free Text/Dictation CARDIOLOGY FOLLOW UP: D/W staff , d/w rhythm was reviewed. pt remains in NSR but with frequent PAC, PVC. no more Afib overnight. Pt is still intubated and on vent. no reports of any chest pain or pressure. no reports of any palpitations Objective: General: Intubated on vent in ICU HEENT: NC/AT. . oropharynx with lesions. NECK: NO JVD. no stridor. s/p previous trach with dressing covering it. CV: RRR. systolic ejection murmur; no gallop or rubs. PULM: + diffuse rhonchi. GI: SOFT, NT, ND, no rebound or guarding s/p PEG Extremity: 2+ B/L LE edema. no clubbing. neuro: opens her eye and follows command Psych: calm rectal: deferred Derm: multiple echymosis Exam/Review of Systems Vital Signs Vitals Vital Signs Date Time Temp Pulse Resp B/P Pulse Ox O2 Delivery O2 Flow Rate FiO2 04/25/17 18:00 83 16 150/77 100 Mechanical Ventilator 04/25/17 17:55 30 04/25/17 16:00 96.3 04/21/17 16:12 6.0 Intake and Output 04/24/17 04/24/17 04/25/17 15:00 23:00 07:00 Intake Total 990 ml 525 ml 475 ml Output Total 495 ml 770 ml 585 ml Balance 495 ml -245 ml -110 ml Results Result Diagram: 04/25/17 0430 04/25/17 0430 Results 24 hrs Laboratory Tests Test 04/25/17 00:46 04/25/17 04:30 04/25/17 06:13 04/25/17 11:52 Bedside Glucose 160 138 128 White Blood Count 17.7 H Red Blood Count 2.37 L Hemoglobin 7.7 L Hematocrit 25.5 L Mean Corpuscular Volume 107.6 H Mean Corpuscular Hemoglobin 32.5 Mean Corpuscular Hemoglobin Concent 30.2 L Red Cell Distribution Width 14.6 H Platelet Count 408 Mean Platelet Volume 11.6 H Neutrophils % 83.1 H Lymphocytes % 5.5 L Monocytes % 7.3 Eosinophils % 0.0 Basophils % 0.1 Nucleated Red Blood Cells % 0.0 Neutrophils # 14.7 H Lymphocytes # 1.0 Monocytes # 1.3 H Eosinophils # 0.0 Basophils # 0.0 Nucleated Red Blood Cells # 0.0 Sodium Level 144 Potassium Level 4.1 Chloride Level 114 H Carbon Dioxide Level 28 Anion Gap 6 L Blood Urea Nitrogen 73 H Creatinine 1.19 H Glucose Level 128 Calcium Level 8.5 Phosphorus Level 3.8 Magnesium Level 2.2 Total Bilirubin 0.0 L Direct Bilirubin 0.00 Indirect Bilirubin 0.0 Aspartate Amino Transf (AST/SGOT) 22 Alanine Aminotransferase (ALT/SGPT) 43 Alkaline Phosphatase 92 B-Type Natriuretic Peptide 66763 H Total Protein 4.9 L Albumin 2.4 L Globulin 2.50 Albumin/Globulin Ratio 0.96 Test 04/25/17 14:29 04/25/17 17:50 Blood Gas Specimen Source Blood arterial Arterial Blood Date Drawn 04/25/2017 2:30:39 PM Arterial Blood pH (Temp corrected) 7.478 H Arterial Blood pCO2 (Temp correct) 34.8 L Arterial Blood pO2 (Temp corrected) 60.3 L Arterial Blood HCO3 25.2 Arterial Blood Base Excess 1.7 Arterial Blood Oxygen Saturation 93.0 L Jonn Test ACCEPTAB Arterial Blood Gas Puncture Site Right Radial Arterial Blood Carboxyhemoglobin 0.3 Arterial Blood Methemoglobin 0.4 Blood Gas A-a O2 Differential 112.7 H Oxyhemoglobin Percent 92.3 L Total Hemoglobin 7.9 L Blood Gas Temperature 37.0 Blood Gas Actual Respiration Rate 22 Blood Gas Modality VENT - CPAP FiO2 30.0 Blood Gas Low PEEP Setting 5.0 Blood Gas Pressure Support 10 Blood Gas Notified Whom JLD Blood Gas Notified Time 04/25/2017 2:44:09 PM Bedside Glucose 154 Medications Medications Current Medications Norepinephrine/ Dextrose (Levophed/D5W) 500 ml @ 0 mls/hr TITRATE IV Last administered on 04/14/17 10:24; Admin Dose 18.75 MLS/HR; Start 04/11/17 at 12:30 Aspirin (Aspirin) 325 mg DAILY NGT Last administered on 04/25/17 08:39; Admin Dose 325 MG; Start 04/12/17 at 09:00 Metoprolol Tartrate (Lopressor) 25 mg BID NGT Last administered on 04/25/17 08 :39; Admin Dose 25 MG; Start 04/11/17 at 21:00 Metoprolol Tartrate (Lopressor) 5 mg Q4H PRN IV HR>110 Hold SBP<110 Last administered on 04/20/17 17:36; Admin Dose 5 MG; Start 04/11/17 at 13:30 Lansoprazole 30 mg 30 mg DAILY GTB Last administered on 04/25/17 08:39; Admin Dose 30 MG; Start 04/12/17 at 09:00 Phenylephrine HCl/ Dextrose ([place]-Syneph/D5W) 500 ml @ 0 mls/hr TITRATE IV Last administered on 04/12/17 02:52; Admin Dose 75 MLS/HR; Start 04/11/17 at 16:00 Miscellaneous Information 1 ea NOTE XX ; Start 04/11/17 at 16:30 Glucose (Glutose) 15 gm Q15M PRN PO DECREASED GLUCOSE; Start 04/11/17 at 16:30 Glucose (Glutose) 22.5 gm Q15M PRN PO DECREASED GLUCOSE; Start 04/11/17 at 16: 30 Dextrose (D50w Syringe) 25 ml Q15M PRN IV DECREASED GLUCOSE Last administered on 04/12/17 23:56; Admin Dose 25 ML; Start 04/11/17 at 16:30 Dextrose (D50w Syringe) 50 ml Q15M PRN IV DECREASED GLUCOSE; Start 04/11/17 at 16:30 Glucagon (Glucagen) 1 mg Q15M PRN IM DECREASED GLUCOSE; Start 04/11/17 at 16:30 Glucose 15 gm 15 gm Q15M PRN BUCCAL DECREASED GLUCOSE; Start 04/11/17 at 16:30 Midazolam HCl 50 ml @ 1 mls/hr TITRATE IV Last administered on 04/13/17 04:30; Admin Dose 2 MLS/HR; Start 04/11/17 at 23:30 Fentanyl (Sublimaze) 100 ml @ 0.5 mls/hr TITRATE IV Last administered on 02:48; Admin Dose 0.5 MLS/HR; Start 04/12/17 at 09:30 Metoclopramide HCl (Reglan) 10 mg Q6 IV Last administered on 04/25/17 17:49; Admin Dose 10 MG; Start 04/12/17 at 18:00 Insulin Aspart (Novolog Insulin Pen) NOVOLOG *MILD* ALGORI... Q6H SC Last administered on 04/25/17 17:52; Admin Dose 1 UNIT; Start 04/15/17 at 00:00 Metronidazole (Flagyl) 500 mg Q8 NGT Last administered on 04/25/17 13:02; Admin Dose 500 MG; Start 04/15/17 at 14:00 IV Flush (NS 10 ml) 10 ml PRN PRN IV FLUSH LINE; Start 04/15/17 at 13:00 Hydrocortisone (Solu-Cortef) 25 mg TID IV Last administered on 04/25/17 13:02 ; Admin Dose 25 MG; Start 04/16/17 at 13:00 Amiodarone HCl (Cordarone) 200 mg BID GTB Last administered on 04/25/17 08:39 ; Admin Dose 200 MG; Start 04/16/17 at 13:00 Diltiazem HCl (Cardizem Iv) 5 mg Q1H PRN IV AFIB GREATER THAN 110 Last administered on 04/17/17 16:41; Admin Dose 5 MG; Start 04/16/17 at 13:00 Enoxaparin Sodium (Lovenox) 40 mg HS SC Last administered on 7/6/17at 20:38; Admin Dose 40 MG; Start 04/17/17 at 21:00; Status Future Hold Heparin Sodium (Porcine) (Heparin (5000 Units/0.5 ml)) 5,000 unit BID SC Last administered on 04/25/17 08:41; Admin Dose 5,000 UNIT; Start 04/18/17 at 16:22 Acetaminophen/ Hydrocodone Bitart ([place] (5/325)) 2 tab Q4H PRN NGT MODERATE PAIN LEVEL 4-6 Last administered on 04/24/17 09:21; Admin Dose 2 TAB; Start 04/18/17 at 17:30 Citalopram Hydrobromide (Celexa) 20 mg DAILY NGT Last administered on 08:39; Admin Dose 20 MG; Start 04/19/17 at 09:00 Hydralazine HCl 20 mg 20 mg Q6H PRN IV sbp ABOVE 160 Last administered on 12:09; Admin Dose 20 MG; Start 04/18/17 at 18:30 Caspofungin 50 mg/ Sodium Chloride 250 ml @ 250 mls/hr Q24H IV Last administered on 04/25/17 09:37; Admin Dose 250 MLS/HR; Start 04/21/17 at 10:00 Meropenem/Sodium Chloride (Merrem 1 Gm/50 ml (Pmx)) 50 ml @ 200 mls/hr Q12 IVPB Last administered on 04/25/17 08:39; Admin Dose 200 MLS/HR; Start at 21:00 Chlorhexidine Gluconate (Peridex) 15 ml BID MT Last administered on 04/25/17 08:39; Admin Dose 15 ML; Start 04/22/17 at 21:00 Vitamin A/Vitamin D (Vitamin A & D Oint) 1 applic TID TOP Last administered on 04/25/17 13:02; Admin Dose 1 APPLIC; Start 04/22/17 at 21:00 Vitamin A/Vitamin D (Vitamin A & D Oint) 1 applic TID PRN TOP DRYNESS Last administered on 04/22/17 15:29; Admin Dose 1 APPLIC; Start 04/22/17 at 15:00 Acetaminophen/ Hydrocodone Bitart ([place] (5/325)) 1 tab Q6H GTB Last administered on 04/25/17 15:29; Admin Dose 1 TAB; Start 04/22/17 at 21:30 Valacyclovir HCl (Valtrex) 500 mg BID PO Last administered on 04/25/17 08:39; Admin Dose 500 MG; Start 04/24/17 at 21:00; Stop 05/01/17 at 21:59 FRANCISCO BLACKWOOD MD Apr 25, 2017 18:41
[2017-04-25] MEDS: SPIRONOLACTONE 25 MG TAB NGT SCH (18:49)
[2017-04-25] MEDS: POTASSIUM CHLORIDE 20 MEQ POWDER FOR ORAL SOLN NGT SCH (20:28)
[2017-04-26] VITALS (31 sets, daily range): BP systolic 120–195; BP diastolic 48–83; PULSE 68–99; RESP 12–23
[2017-04-26] MEDS: METOCLOPRAMIDE 10 MG INJ IV SCH ×4 (00:03→19:04)
[2017-04-26] MEDS: INSULIN ASPART [NOVOLOG] 3 ML PEN SC SCH ×4 (00:09→19:06)
[2017-04-26] MEDS: HYDROCODONE/APAP (5/325) TAB GTB SCH ×5 (03:52→23:10)
[2017-04-26 05:18] LABS: ADD SCAN DIFF NO
[2017-04-26 05:22] LABS: BASOPHILS % 0.2 % (0.0-2.0); HEMATOCRIT 28.1 % (37.0-47.0); HEMOGLOBIN 8.8 g/dl (12.0-16.0); LYMPHOCYTES # 1.1 10^3/ul (0.8-2.9); LYMPHOCYTES % 5.3 % (15.0-51.0); MEAN CORPUSCULAR HEMOGLOBIN 34.1 pg (29.0-33.0); MEAN CORPUSCULAR HGB CONC 31.3 g/dl (32.0-37.0); MEAN CORPUSCULAR VOLUME 108.9 fl (82.0-101.0); MEAN PLATELET VOLUME 11.9 fl (7.4-10.4); MONOCYTE # 1.4 10^3/ul (0.3-0.9); MONOCYTES % 7.2 % (0.0-11.0); NEUTROPHIL # 16.3 10^3/ul (1.6-7.5); NEUTROPHILS % 83.1 % (39.0-77.0); PLATELET COUNT 475 10^3/UL (140-415); RED BLOOD COUNT 2.58 10^6/ul (4.20-5.40); RED CELL DISTRIBUTION WIDTH 14.5 % (11.5-14.5); WHITE BLOOD COUNT 19.7 10^3/ul (4.8-10.8)
[2017-04-26 05:42] LABS: ALBUMIN 2.9 g/dl (3.3-4.9); ALBUMIN/GLOBULIN RATIO 1.11; CALCIUM 8.7 mg/dl (8.4-10.2); CREATININE 1.25 mg/dl (0.44-1.00); POTASSIUM 4.2 mmol/L (3.5-5.1); TOTAL PROTEIN 5.5 g/dl (6.1-8.1)
[2017-04-26 05:50] LABS: CALCIUM 8.7 mg/dl (8.4-10.2); CREATININE 1.13 mg/dl (0.44-1.00); MAGNESIUM 2.2 mg/dl (1.7-2.5); POTASSIUM 4.6 mmol/L (3.5-5.1)
[2017-04-26] MEDS: LEVOTHYROXINE 75 MCG TAB GTB SCH (05:51)
[2017-04-26] MEDS: metroNIDAZOLE 500 MG TAB NGT SCH ×3 (05:51→22:25)
[2017-04-26] MEDS: FUROSEMIDE 40 MG INJ IV SCH ×2 (05:52→19:04)
--- NOTE | 2017-04-26 07:03 | CONS ---
Date/Time of Note Date/Time of Note DATE: 04/26/17 TIME: 07:02 Assessment/Plan Assessment/Plan Problems: (1) Steroid dependence Status: Chronic Comment: Remains critically ill. Still on ventilator support. Regarding the adrenal insufficiency she is adequately replaced on her current medications given the stress that she is under. She was not under this degree of stress and dosages would of course be lower Consultation Date/Type/Reason Admit Date/Time Apr 11, 2017 at 11:28 Initial Consult Date 04/14/17 Type of Consultation: Endocrinology Reason for Consultation Iatrogenic adrenal insufficiency/glucocorticoid Referring Provider: NINA MACIEL DO 24 HR Interval Summary Subjective hx not possible: pt non-verbal, pt critical status Exam/Review of Systems Vital Signs Vitals Vital Signs Date Time Temp Pulse Resp B/P Pulse Ox O2 Delivery O2 Flow Rate FiO2 04/26/17 06:00 88 19 135/68 100 Mechanical Ventilator 04/26/17 05:05 30 04/26/17 04:00 97.5 Intake and Output 04/25/17 04/25/17 04/26/17 15:00 23:00 07:00 Intake Total 870 ml 525 ml 400 ml Output Total 640 ml 830 ml 405 ml Balance 230 ml -305 ml -5 ml Exam Constitutional: non-verbal ENMT: intubated Neck: supple Respiratory: crackles/rales Cardiovascular: regular rate and rhythm Extremities: normal pulses Results Result Diagram: 04/26/17 0400 04/26/17 0400 Results 24 hrs Laboratory Tests Test 04/25/17 11:52 04/25/17 14:29 04/25/17 17:50 04/25/17 23:58 Bedside Glucose 128 154 143 Blood Gas Specimen Source Blood arterial Arterial Blood Date Drawn 04/25/2017 2:30:39 PM Arterial Blood pH (Temp corrected) 7.478 H Arterial Blood pCO2 (Temp correct) 34.8 L Arterial Blood pO2 (Temp corrected) 60.3 L Arterial Blood HCO3 25.2 Arterial Blood Base Excess 1.7 Arterial Blood Oxygen Saturation 93.0 L Jonn Test ACCEPTAB Arterial Blood Gas Puncture Site Right Radial Arterial Blood Carboxyhemoglobin 0.3 Arterial Blood Methemoglobin 0.4 Blood Gas A-a O2 Differential 112.7 H Oxyhemoglobin Percent 92.3 L Total Hemoglobin 7.9 L Blood Gas Temperature 37.0 Blood Gas Actual Respiration Rate 22 Blood Gas Modality VENT - CPAP FiO2 30.0 Blood Gas Low PEEP Setting 5.0 Blood Gas Pressure Support 10 Blood Gas Notified Whom JLD Blood Gas Notified Time 04/25/2017 2:44:09 PM Test 04/26/17 04:00 04/26/17 05:56 White Blood Count 19.7 H Red Blood Count 2.58 L Hemoglobin 8.8 L Hematocrit 28.1 L Mean Corpuscular Volume 108.9 H Mean Corpuscular Hemoglobin 34.1 H Mean Corpuscular Hemoglobin Concent 31.3 L Red Cell Distribution Width 14.5 Platelet Count 475 H Mean Platelet Volume 11.9 H Neutrophils % 83.1 H Lymphocytes % 5.3 L Monocytes % 7.2 Eosinophils % 0.0 Basophils % 0.2 Nucleated Red Blood Cells % 0.0 Neutrophils # 16.3 H Lymphocytes # 1.1 Monocytes # 1.4 H Eosinophils # 0.0 Basophils # 0.0 Nucleated Red Blood Cells # 0.0 Sodium Level 154 H Potassium Level 4.2 Chloride Level 114 H Carbon Dioxide Level 30 Anion Gap 14 Blood Urea Nitrogen 70 H Creatinine 1.25 H Glucose Level 118 Calcium Level 8.7 Phosphorus Level 4.0 Magnesium Level 2.2 Total Bilirubin 0.0 L Direct Bilirubin 0.00 Indirect Bilirubin 0.0 Aspartate Amino Transf (AST/SGOT) 33 Alanine Aminotransferase (ALT/SGPT) 41 Alkaline Phosphatase 109 Total Protein 5.5 L Albumin 2.9 L Globulin 2.60 Albumin/Globulin Ratio 1.11 Bedside Glucose 136 Medications Medications Current Medications Norepinephrine/ Dextrose (Levophed/D5W) 500 ml @ 0 mls/hr TITRATE IV Last administered on 04/14/17 10:24; Admin Dose 18.75 MLS/HR; Start 04/11/17 at 12:30 Aspirin (Aspirin) 325 mg DAILY NGT Last administered on 04/25/17 08:39; Admin Dose 325 MG; Start 04/12/17 at 09:00 Metoprolol Tartrate (Lopressor) 25 mg BID NGT Last administered on 04/25/17 20 :29; Admin Dose 25 MG; Start 04/11/17 at 21:00 Metoprolol Tartrate (Lopressor) 5 mg Q4H PRN IV HR>110 Hold SBP<110 Last administered on 04/20/17 17:36; Admin Dose 5 MG; Start 04/11/17 at 13:30 Lansoprazole 30 mg 30 mg DAILY GTB Last administered on 04/25/17 08:39; Admin Dose 30 MG; Start 04/12/17 at 09:00 Phenylephrine HCl/ Dextrose ([place]-Syneph/D5W) 500 ml @ 0 mls/hr TITRATE IV Last administered on 04/12/17 02:52; Admin Dose 75 MLS/HR; Start 04/11/17 at 16:00 Miscellaneous Information 1 ea NOTE XX ; Start 04/11/17 at 16:30 Glucose (Glutose) 15 gm Q15M PRN PO DECREASED GLUCOSE; Start 04/11/17 at 16:30 Glucose (Glutose) 22.5 gm Q15M PRN PO DECREASED GLUCOSE; Start 04/11/17 at 16: 30 Dextrose (D50w Syringe) 25 ml Q15M PRN IV DECREASED GLUCOSE Last administered on 04/12/17 23:56; Admin Dose 25 ML; Start 04/11/17 at 16:30 Dextrose (D50w Syringe) 50 ml Q15M PRN IV DECREASED GLUCOSE; Start 04/11/17 at 16:30 Glucagon (Glucagen) 1 mg Q15M PRN IM DECREASED GLUCOSE; Start 04/11/17 at 16:30 Glucose 15 gm 15 gm Q15M PRN BUCCAL DECREASED GLUCOSE; Start 04/11/17 at 16:30 Midazolam HCl 50 ml @ 1 mls/hr TITRATE IV Last administered on 04/13/17 04:30; Admin Dose 2 MLS/HR; Start 04/11/17 at 23:30 Fentanyl (Sublimaze) 100 ml @ 0.5 mls/hr TITRATE IV Last administered on 02:48; Admin Dose 0.5 MLS/HR; Start 04/12/17 at 09:30 Metoclopramide HCl (Reglan) 10 mg Q6 IV Last administered on 04/26/17 05:51; Admin Dose 10 MG; Start 04/12/17 at 18:00 Insulin Aspart (Novolog Insulin Pen) NOVOLOG *MILD* ALGORI... Q6H SC Last administered on 04/26/17 00:09; Admin Dose 1 UNIT; Start 04/15/17 at 00:00 Metronidazole (Flagyl) 500 mg Q8 NGT Last administered on 04/26/17 05:51; Admin Dose 500 MG; Start 04/15/17 at 14:00 IV Flush (NS 10 ml) 10 ml PRN PRN IV FLUSH LINE; Start 04/15/17 at 13:00 Hydrocortisone (Solu-Cortef) 25 mg TID IV Last administered on 04/25/17 20:28 ; Admin Dose 25 MG; Start 04/16/17 at 13:00 Amiodarone HCl (Cordarone) 200 mg BID GTB Last administered on 04/25/17 20:30 ; Admin Dose 200 MG; Start 04/16/17 at 13:00 Diltiazem HCl (Cardizem Iv) 5 mg Q1H PRN IV AFIB GREATER THAN 110 Last administered on 04/17/17 16:41; Admin Dose 5 MG; Start 04/16/17 at 13:00 Enoxaparin Sodium (Lovenox) 40 mg HS SC Last administered on 04/17/17 20:38; Admin Dose 40 MG; Start 04/17/17 at 21:00; Status Future Hold Heparin Sodium (Porcine) (Heparin (5000 Units/0.5 ml)) 5,000 unit BID SC Last administered on 04/25/17 20:48; Admin Dose 5,000 UNIT; Start 04/18/17 at 16:22 Acetaminophen/ Hydrocodone Bitart ([place] (5/325)) 2 tab Q4H PRN NGT MODERATE PAIN LEVEL 4-6 Last administered on 04/24/17 09:21; Admin Dose 2 TAB; Start 04/18/17 at 17:30 Citalopram Hydrobromide (Celexa) 20 mg DAILY NGT Last administered on 08:39; Admin Dose 20 MG; Start 04/19/17 at 09:00 Hydralazine HCl 20 mg 20 mg Q6H PRN IV sbp ABOVE 160 Last administered on 12:09; Admin Dose 20 MG; Start 04/18/17 at 18:30 Caspofungin 50 mg/ Sodium Chloride 250 ml @ 250 mls/hr Q24H IV Last administered on 04/25/17 09:37; Admin Dose 250 MLS/HR; Start 04/21/17 at 10:00 Meropenem/Sodium Chloride (Merrem 1 Gm/50 ml (Pmx)) 50 ml @ 200 mls/hr Q12 IVPB Last administered on 04/25/17 20:39; Admin Dose 200 MLS/HR; Start at 21:00 Chlorhexidine Gluconate (Peridex) 15 ml BID MT Last administered on 04/25/17 20:28; Admin Dose 15 ML; Start 04/22/17 at 21:00 Vitamin A/Vitamin D (Vitamin A & D Oint) 1 applic TID TOP Last administered on 04/25/17 20:29; Admin Dose 1 APPLIC; Start 04/22/17 at 21:00 Vitamin A/Vitamin D (Vitamin A & D Oint) 1 applic TID PRN TOP DRYNESS Last administered on 04/22/17 15:29; Admin Dose 1 APPLIC; Start 04/22/17 at 15:00 Acetaminophen/ Hydrocodone Bitart ([place] (5/325)) 1 tab Q6H GTB Last administered on 04/26/17 03:52; Admin Dose 1 TAB; Start 04/22/17 at 21:30 Valacyclovir HCl (Valtrex) 500 mg BID PO Last administered on 04/25/17 20:28; Admin Dose 500 MG; Start 04/24/17 at 21:00; Stop 05/01/17 at 21:59 Potassium Chloride (Potassium Chloride Pwd/Soln) 20 meq BID NGT Last administered on 04/25/17 20:28; Admin Dose 20 MEQ; Start 04/25/17 at 21:00 Spironolactone (Aldactone) 25 mg DAILY NGT Last administered on 04/25/17 18:49 ; Admin Dose 25 MG; Start 04/25/17 at 19:00 IZZY TYLER MD Apr 26, 2017 07:03
--- NOTE | 2017-04-26 07:22 | CONS ---
Date/Time of Note Date/Time of Note DATE: 04/26/17 TIME: : Consult Date/Type/Reason Admit Date/Time Apr 11, 2017 at 11:28 Initial Consult Date 04/14/17 Type of Consultation: neph Ordering Provider: NINA GANDHI DO Subjective This is a 66-year-old female with a past medical history of tongue cancer status post section reconstruction 10 years ago.. The patient approximately 16 months ago had clinical decompensation respiratory failure underwent trach and PEG. The patient was transferred to [facility] where she underwent weaning off of that. The patient was subsequently transferred [facility] as had previous hospital stays for sepsis pneumonia and respiratory failure. Most recently in her last hospital stay follow the patient was successfully decannulated and removal with removal of PEG. She was subsequently transferred back to alf facility. She now presents yesterday to [facility] emergency room with hypoxemic respiratory failure. After an episode of acid emesis and concern of aspiration pneumonitis pneumonia. In the emergency room the patient was critically ill was intubated was in septic shock placed on pressure support IV pressors and IV antibiotics and transferred to the intensive care unit for further care. In the emergency room the patient had a CT of the abdomen pelvis which showed evidence of pericholecystic fluid possile cholecystitis. Patient also had noted infiltrates in her lungs bilaterally and noted to be in shock.Patient had normal renal function on admission her creatinine is increased. Interim events was extubated but went into respiratory distress requiring bipap. deteriorated and required reintubation. poc reviewed with and dr. gandhi. GENERAL: Chronically ill-appearing elderly lady on mechanical ventilation, awake and alert follows simple commands VITAL SIGNS: per chart NECK: Supple. No JVD or lymphadenopathy. Stoma site has dressing in place CARDIAC EXAM: S1, S2. No added sounds or murmurs. CHEST: Diminished air entry bilaterally poor effort ABDOMEN: Soft, nontender. No guarding or rebound. EXTREMITIES: No cyanosis, clubbing edema +2 NEUROLOGIC: Generalized weakness. Objective Vital Signs Date Time Temp Pulse Resp B/P Pulse Ox O2 Delivery O2 Flow Rate FiO2 04/26/17 06:00 88 19 135/68 100 Mechanical Ventilator 04/26/17 05:05 30 04/26/17 04:00 97.5 Intake and Output 04/25/17 04/25/17 04/26/17 15:00 23:00 07:00 Intake Total 870 ml 525 ml 400 ml Output Total 640 ml 830 ml 405 ml Balance 230 ml -305 ml -5 ml Results/Medications Result Diagram: 04/26/17 0400 04/26/17 0400 Results 24 hrs Laboratory Tests Test 04/25/17 11:52 04/25/17 14:29 04/25/17 17:50 04/25/17 23:58 Bedside Glucose 128 154 143 Blood Gas Specimen Source Blood arterial Arterial Blood Date Drawn 04/25/2017 2:30:39 PM Arterial Blood pH (Temp corrected) 7.478 H Arterial Blood pCO2 (Temp correct) 34.8 L Arterial Blood pO2 (Temp corrected) 60.3 L Arterial Blood HCO3 25.2 Arterial Blood Base Excess 1.7 Arterial Blood Oxygen Saturation 93.0 L Jonn Test ACCEPTAB Arterial Blood Gas Puncture Site Right Radial Arterial Blood Carboxyhemoglobin 0.3 Arterial Blood Methemoglobin 0.4 Blood Gas A-a O2 Differential 112.7 H Oxyhemoglobin Percent 92.3 L Total Hemoglobin 7.9 L Blood Gas Temperature 37.0 Blood Gas Actual Respiration Rate 22 Blood Gas Modality VENT - CPAP FiO2 30.0 Blood Gas Low PEEP Setting 5.0 Blood Gas Pressure Support 10 Blood Gas Notified Whom JLD Blood Gas Notified Time 04/25/2017 2:44:09 PM Test 04/26/17 04:00 04/26/17 05:56 White Blood Count 19.7 H Red Blood Count 2.58 L Hemoglobin 8.8 L Hematocrit 28.1 L Mean Corpuscular Volume 108.9 H Mean Corpuscular Hemoglobin 34.1 H Mean Corpuscular Hemoglobin Concent 31.3 L Red Cell Distribution Width 14.5 Platelet Count 475 H Mean Platelet Volume 11.9 H Neutrophils % 83.1 H Lymphocytes % 5.3 L Monocytes % 7.2 Eosinophils % 0.0 Basophils % 0.2 Nucleated Red Blood Cells % 0.0 Neutrophils # 16.3 H Lymphocytes # 1.1 Monocytes # 1.4 H Eosinophils # 0.0 Basophils # 0.0 Nucleated Red Blood Cells # 0.0 Sodium Level 154 H Potassium Level 4.2 Chloride Level 114 H Carbon Dioxide Level 30 Anion Gap 14 Blood Urea Nitrogen 70 H Creatinine 1.25 H Glucose Level 118 Calcium Level 8.7 Phosphorus Level 4.0 Magnesium Level 2.2 Total Bilirubin 0.0 L Direct Bilirubin 0.00 Indirect Bilirubin 0.0 Aspartate Amino Transf (AST/SGOT) 33 Alanine Aminotransferase (ALT/SGPT) 41 Alkaline Phosphatase 109 Total Protein 5.5 L Albumin 2.9 L Globulin 2.60 Albumin/Globulin Ratio 1.11 Bedside Glucose 136 Medications Current Medications Norepinephrine/ Dextrose (Levophed/D5W) 500 ml @ 0 mls/hr TITRATE IV Last administered on 04/14/17 10:24; Admin Dose 18.75 MLS/HR; Start 04/11/17 at 12:30 Aspirin (Aspirin) 325 mg DAILY NGT Last administered on 04/25/17 08:39; Admin Dose 325 MG; Start 04/12/17 at 09:00 Metoprolol Tartrate (Lopressor) 25 mg BID NGT Last administered on 04/25/17 20 :29; Admin Dose 25 MG; Start 04/11/17 at 21:00 Metoprolol Tartrate (Lopressor) 5 mg Q4H PRN IV HR>110 Hold SBP<110 Last administered on 04/20/17 17:36; Admin Dose 5 MG; Start 04/11/17 at 13:30 Lansoprazole 30 mg 30 mg DAILY GTB Last administered on 04/25/17 08:39; Admin Dose 30 MG; Start 04/12/17 at 09:00 Phenylephrine HCl/ Dextrose ([place]uy-Syneph/D5W) 500 ml @ 0 mls/hr TITRATE IV Last administered on 04/12/17 02:52; Admin Dose 75 MLS/HR; Start 04/11/17 at 16:00 Miscellaneous Information 1 ea NOTE XX ; Start 04/11/17 at 16:30 Glucose (Glutose) 15 gm Q15M PRN PO DECREASED GLUCOSE; Start 04/11/17 at 16:30 Glucose (Glutose) 22.5 gm Q15M PRN PO DECREASED GLUCOSE; Start 04/11/17 at 16: 30 Dextrose (D50w Syringe) 25 ml Q15M PRN IV DECREASED GLUCOSE Last administered on 04/12/17 23:56; Admin Dose 25 ML; Start 04/11/17 at 16:30 Dextrose (D50w Syringe) 50 ml Q15M PRN IV DECREASED GLUCOSE; Start 04/11/17 at 16:30 Glucagon (Glucagen) 1 mg Q15M PRN IM DECREASED GLUCOSE; Start 04/11/17 at 16:30 Glucose 15 gm 15 gm Q15M PRN BUCCAL DECREASED GLUCOSE; Start 04/11/17 at 16:30 Midazolam HCl 50 ml @ 1 mls/hr TITRATE IV Last administered on 04/13/17 04:30; Admin Dose 2 MLS/HR; Start 04/11/17 at 23:30 Fentanyl (Sublimaze) 100 ml @ 0.5 mls/hr TITRATE IV Last administered on 02:48; Admin Dose 0.5 MLS/HR; Start 04/12/17 at 09:30 Metoclopramide HCl (Reglan) 10 mg Q6 IV Last administered on 04/26/17 05:51; Admin Dose 10 MG; Start 04/12/17 at 18:00 Insulin Aspart (Novolog Insulin Pen) NOVOLOG *MILD* ALGORI... Q6H SC Last administered on 04/26/17 00:09; Admin Dose 1 UNIT; Start 04/15/17 at 00:00 Metronidazole (Flagyl) 500 mg Q8 NGT Last administered on 04/26/17 05:51; Admin Dose 500 MG; Start 04/15/17 at 14:00 IV Flush (NS 10 ml) 10 ml PRN PRN IV FLUSH LINE; Start 04/15/17 at 13:00 Hydrocortisone (Solu-Cortef) 25 mg TID IV Last administered on 04/25/17 20:28 ; Admin Dose 25 MG; Start 04/16/17 at 13:00 Amiodarone HCl (Cordarone) 200 mg BID GTB Last administered on 04/25/17 20:30 ; Admin Dose 200 MG; Start 04/16/17 at 13:00 Diltiazem HCl (Cardizem Iv) 5 mg Q1H PRN IV AFIB GREATER THAN 110 Last administered on 04/17/17 16:41; Admin Dose 5 MG; Start 04/16/17 at 13:00 Enoxaparin Sodium (Lovenox) 40 mg HS SC Last administered on 04/17/17 20:38; Admin Dose 40 MG; Start 04/17/17 at 21:00; Status Future Hold Heparin Sodium (Porcine) (Heparin (5000 Units/0.5 ml)) 5,000 unit BID SC Last administered on 04/25/17 20:48; Admin Dose 5,000 UNIT; Start 04/18/17 at 16:22 Acetaminophen/ Hydrocodone Bitart ([place] (5/325)) 2 tab Q4H PRN NGT MODERATE PAIN LEVEL 4-6 Last administered on 04/24/17 09:21; Admin Dose 2 TAB; Start 04/18/17 at 17:30 Citalopram Hydrobromide (Celexa) 20 mg DAILY NGT Last administered on 08:39; Admin Dose 20 MG; Start 04/19/17 at 09:00 Hydralazine HCl 20 mg 20 mg Q6H PRN IV sbp ABOVE 160 Last administered on 12:09; Admin Dose 20 MG; Start 04/18/17 at 18:30 Caspofungin 50 mg/ Sodium Chloride 250 ml @ 250 mls/hr Q24H IV Last administered on 04/25/17 09:37; Admin Dose 250 MLS/HR; Start 04/21/17 at 10:00 Meropenem/Sodium Chloride (Merrem 1 Gm/50 ml (Pmx)) 50 ml @ 200 mls/hr Q12 IVPB Last administered on 04/25/17 20:39; Admin Dose 200 MLS/HR; Start at 21:00 Chlorhexidine Gluconate (Peridex) 15 ml BID MT Last administered on 04/25/17 20:28; Admin Dose 15 ML; Start 04/22/17 at 21:00 Vitamin A/Vitamin D (Vitamin A & D Oint) 1 applic TID TOP Last administered on 04/25/17 20:29; Admin Dose 1 APPLIC; Start 04/22/17 at 21:00 Vitamin A/Vitamin D (Vitamin A & D Oint) 1 applic TID PRN TOP DRYNESS Last administered on 04/22/17 15:29; Admin Dose 1 APPLIC; Start 04/22/17 at 15:00 Acetaminophen/ Hydrocodone Bitart ([place] (5/325)) 1 tab Q6H GTB Last administered on 04/26/17 03:52; Admin Dose 1 TAB; Start 04/22/17 at 21:30 Valacyclovir HCl (Valtrex) 500 mg BID PO Last administered on 04/25/17 20:28; Admin Dose 500 MG; Start 04/24/17 at 21:00; Stop 05/01/17 at 21:59 Potassium Chloride (Potassium Chloride Pwd/Soln) 20 meq BID NGT Last administered on 04/25/17 20:28; Admin Dose 20 MEQ; Start 04/25/17 at 21:00 Spironolactone (Aldactone) 25 mg DAILY NGT Last administered on 04/25/17 18:49 ; Admin Dose 25 MG; Start 04/25/17 at 19:00 Assessment/Plan Chief Complaint/Hosp Course 1. Status post code arrest -Etiology was respiratory due to hypoxemia -Patient currently stable on ventilatory support -Monitor closely 2. Nonoliguric keyonna. With previously normal baseline creatinine. Etiology is likely secondary to septic KEYONNA with possible ATN -Renal function has been stable, -Continue treatment plan. Supportive care renally dose meds avoid nephrotoxins -Follow-up renal panel - 3. Sepsis, status post shock. Etiology is likely secondary to aspiration pneumonia, fungemia -Patient currently off pressors. Remains on antibiotics, antifungals - Patient's blood cultures have been reviewed. - Continue current treatment plan Follow-up with infectious disease 3. Ventilator dependent respiratory failure. etiology secondary to pneumonia, CHF, critical illness myopathy. -Vent settings and ABG have been reviewed. cont simv -Follow-up with pulmonary -ENT consult has been placed 4. Volume overload. Etiology likely secondary to sepsis capillary leak. Possible diastolic heart failure. -Continue Lasix 5. Elevated troponin. Possible non-STEMI type II. We will continue to monitor follow-up with cardiology 6. History of adrenal insufficiency. -Patient currently on stress steroids, -Appreciate endocrinology evaluation 7. Acute encephalopathy etiologies toxic metabolic, possible anoxic injury. Mental status is improving, patient following commands CT scan showed no acute finding Appreciate Dr. Ellis evaluation -Continue to monitor closely 8. possible acute cholecystitis -Patient's HIDA scan was positive - cholecystostomy drain was not placed due to insufficient fluid. -No plan for drain placement at this time. Appreciate surgery's evaluation. 9. Hypothyroidism continue Synthroid 10. Anemia. -Hemoglobin levels have declined, transfuse today. 11. Mineral bone disorder will monitor calcium phosphorus levels 12. h/o tongue cancer with resection 13. History of diastolic heart failure/coronary disease -Continue medical management 14. Leukocytosis. -Etiology is likely secondary sepsis, steroids. -Slowly improving as steroids are being weaned down - Follow-up with infectious disease. 15. Hypomagnesemia. Continue to monitor and replete as needed 16. Left upper extremity DVT. Patient's on heparin and aspirin. Continue to monitor 17. Dysphagia status post PEG -Resume tube feedings, if no further episodes of emesis 18. Arrhythmia Status post amiodarone drip Follow-up with cardio 19. hypernatremia - likely sec to tbw deficit -check urine studies. -adjust ivf. I spent greater than 40 minutes of critical care time with this pt Problems: HILARY RUBIO MD Apr 26, 2017 07:22
[2017-04-26] MEDS: ASPIRIN 325 MG TAB NGT SCH (08:43)
[2017-04-26] MEDS: CITALOPRAM 20 MG TAB NGT SCH (08:43)
[2017-04-26] MEDS: CHLORHEXIDINE GLUCONATE 15 ML UD CUP MT SCH ×2 (08:43→20:51)
[2017-04-26] MEDS: AMIODARONE 200 MG TAB GTB SCH ×2 (08:43→20:50)
[2017-04-26] MEDS: HYDROCORTISONE 100 MG INJ IV SCH ×3 (08:43→20:45)
[2017-04-26] MEDS: SPIRONOLACTONE 25 MG TAB NGT SCH (08:43)
[2017-04-26] MEDS: LANSOPRAZOLE 30 MG CAP GTB SCH (08:43)
[2017-04-26] MEDS: MEROPENEM 1 GM/50ML(PMX) 50 ML IVPB SCH (08:43)
[2017-04-26] MEDS: VALACYCLOVIR 500 MG TAB PO SCH ×2 (08:44→20:46)
[2017-04-26] MEDS: POTASSIUM CHLORIDE 20 MEQ POWDER FOR ORAL SOLN NGT SCH ×2 (08:44→20:46)
[2017-04-26] MEDS: VITAMIN A & D 5 GM OINT PACKET TOP SCH ×3 (08:44→20:45)
[2017-04-26] MEDS: METOPROLOL 25 MG TAB NGT SCH ×2 (08:44→20:46)
[2017-04-26] MEDS: HEPARIN 5,000 UNIT/0.5 ML VIAL SC SCH ×2 (08:48→20:49)
--- NOTE | 2017-04-26 09:31 | RADRPT ---
PROCEDURE: XR Chest 1 View. CLINICAL INDICATION: Shortness of breath. TECHNIQUE: AP view of the chest was obtained. COMPARISON: April 24, 2017 FINDINGS: The heart size is within normal limits. Calcified atherosclerosis is noted in the aorta. Endotrache al tube is stable and appears in grossly appropriate location. Right-sided PICC line is unchanged. Diffuse interstitial prominence in both lungs is stable. Superimposed atelectasis versus minimal a lveolar infiltrates throughout both lungs are stable. Osseous structures are intact. IMPRESSION: Calcified atherosclerosis in the aorta. Stable diffuse interstitial prominence in both lungs. Stable superimposed atelectasis versus minimal alveolar infiltrates throughout both lungs. RPTAT: AA .Jason Rizo MD, Date Time Electronically viewed and signed by .Jason Rizo MD, on 04/26/2017 09:31 .P/
--- NOTE | 2017-04-26 10:03 | CONS ---
Date/Time of Note Date/Time of Note DATE: 04/26/17 TIME: 09:47 Assessment/Plan Assessment/Plan Chief Complaint/Hosp Course ID PROGRESS NOTE CURRENT TOTAL ABX DAY #14 +>Cancidas, Flagyl, Merrem, Valtrex 24H INTERVAL SUMMARY/HOSPITAL COURSE * Awake, follows commands, stable on the Vent, no fever * Weaning from Vent in process -> Orally intubated, spouse present and reports optimism for weaning possibly today * MICRO: Repeat blood culture on April 24 negative preliminary. Blood culture on April 20 growing yeast, repeat sputum culture on April 21 growing Ramonita species not albicans and Ramonita glabrata * CXR 04/26/17: IMPRESSION: Calcified atherosclerosis in the aorta. Stable diffuse interstitial prominence in both lungs. Stable superimposed atelectasis versus minimal alveolar infiltrates throughout both lungs. PHYSICAL EXAMINATION: GENERAL: 66 yo F, stable on the Vent HEENT: Atraumatic, (+)Lip crusting lesions NECK: (+)Trach CHEST: Rise symmetrical w/coarse BS, scattered rales/rhonchi ABDOMEN: Soft, peg EXTREMITIES: Warm, moves extremities ID ASSESSMENT: 66 yo F w/PMHx tongue cancer, chronic trach re-admit [facility] from [facility] with: 1. Acute severe sepsis/shock on admission w/(+)fever, tachycardia, lactic acidosis, leukocytosis, (+)troponin leak = RESOLVING 2. Fungemia 3. Acute respiratory failure = recurrent issue s/p intubation x3rd episode 3. HCAP=> Recurrent Aspiration PNA post emesis // Hx of GNR tracheobronchitis * Sputum (+)Yeast * 04/06/17 (+)PSAR = MDRO * 04/06/17 (+)Proteus Mirabilis 4. Acute CHF w/elevated BNP 8000 in setting tachycardia, sepsis, pulmonary edema on CXR 5. s/p Nausea w/emesis on admission ?etiology -> GI on the case * Query: DM Autonomic Gastroparesis * GERD ? 6. Cholelithiasis w/dilated CBD 7. Recent (+)C.Diff on 03/07/16 (treated) w/(-)C.Diff 03/20/17 8. Dysphagia sp PEG placement 9. Paroxysmal Afib 10. NSTEMI in setting sepsis, tachycardia, acute hypoxic respiratory failure, acute CHF exacerbation 11. Elevated glucose - iatrogenic diabetes while on IV steroids 12. Leukocytosis = partial steroids demargination 13. Lip lesions => DDx pressure ulcer from ETT vs HSV -> Empiric Valtrex started (-) MRSA Nares screen (04/03/17) INVASIVES: ETT, NGT, FC ABX ALLERGY: Iodine CURRENT ABX: TOTAL ABX DAY #14 +>Cancidas, Flagyl, Merrem, Valtrex ID PLAN: * DC Merrem and observe => has received adequate course for GNR PNA pathogens * Repeat cultures PRN TEMP > 101.00 . Problems: Consultation Date/Type/Reason Admit Date/Time Apr 11, 2017 at 11:28 Initial Consult Date 04/11/17 Type of Consultation: ID Referring Provider: NINA MACIEL DO Exam/Review of Systems Vital Signs Vitals Vital Signs Date Time Temp Pulse Resp B/P Pulse Ox O2 Delivery O2 Flow Rate FiO2 04/26/17 08:00 96.9 94 20 166/82 100 Mechanical Ventilator 04/26/17 08:00 30 Intake and Output 04/25/17 04/25/17 04/26/17 15:00 23:00 07:00 Intake Total 870 ml 525 ml 400 ml Output Total 640 ml 830 ml 405 ml Balance 230 ml -305 ml -5 ml Results Result Diagram: 04/26/17 0400 04/26/17 0400 Results 24 hrs Laboratory Tests Test 04/25/17 11:52 04/25/17 14:29 04/25/17 17:50 04/25/17 23:58 Bedside Glucose 128 154 143 Blood Gas Specimen Source Blood arterial Arterial Blood Date Drawn 04/25/2017 2:30:39 PM Arterial Blood pH (Temp corrected) 7.478 H Arterial Blood pCO2 (Temp correct) 34.8 L Arterial Blood pO2 (Temp corrected) 60.3 L Arterial Blood HCO3 25.2 Arterial Blood Base Excess 1.7 Arterial Blood Oxygen Saturation 93.0 L Jonn Test ACCEPTAB Arterial Blood Gas Puncture Site Right Radial Arterial Blood Carboxyhemoglobin 0.3 Arterial Blood Methemoglobin 0.4 Blood Gas A-a O2 Differential 112.7 H Oxyhemoglobin Percent 92.3 L Total Hemoglobin 7.9 L Blood Gas Temperature 37.0 Blood Gas Actual Respiration Rate 22 Blood Gas Modality VENT - CPAP FiO2 30.0 Blood Gas Low PEEP Setting 5.0 Blood Gas Pressure Support 10 Blood Gas Notified Whom JLD Blood Gas Notified Time 04/25/2017 2:44:09 PM Test 04/26/17 04:00 04/26/17 05:56 White Blood Count 19.7 H Red Blood Count 2.58 L Hemoglobin 8.8 L Hematocrit 28.1 L Mean Corpuscular Volume 108.9 H Mean Corpuscular Hemoglobin 34.1 H Mean Corpuscular Hemoglobin Concent 31.3 L Red Cell Distribution Width 14.5 Platelet Count 475 H Mean Platelet Volume 11.9 H Neutrophils % 83.1 H Lymphocytes % 5.3 L Monocytes % 7.2 Eosinophils % 0.0 Basophils % 0.2 Nucleated Red Blood Cells % 0.0 Neutrophils # 16.3 H Lymphocytes # 1.1 Monocytes # 1.4 H Eosinophils # 0.0 Basophils # 0.0 Nucleated Red Blood Cells # 0.0 Sodium Level 154 H Potassium Level 4.2 Chloride Level 114 H Carbon Dioxide Level 30 Anion Gap 14 Blood Urea Nitrogen 70 H Creatinine 1.25 H Glucose Level 118 Calcium Level 8.7 Phosphorus Level 4.0 Magnesium Level 2.2 Total Bilirubin 0.0 L Direct Bilirubin 0.00 Indirect Bilirubin 0.0 Aspartate Amino Transf (AST/SGOT) 33 Alanine Aminotransferase (ALT/SGPT) 41 Alkaline Phosphatase 109 Total Protein 5.5 L Albumin 2.9 L Globulin 2.60 Albumin/Globulin Ratio 1.11 Bedside Glucose 136 Medications Medications Current Medications Norepinephrine/ Dextrose (Levophed/D5W) 500 ml @ 0 mls/hr TITRATE IV Last administered on 04/14/17 10:24; Admin Dose 18.75 MLS/HR; Start 04/11/17 at 12:30 Aspirin (Aspirin) 325 mg DAILY NGT Last administered on 04/26/17 08:43; Admin Dose 325 MG; Start 04/12/17 at 09:00 Metoprolol Tartrate (Lopressor) 25 mg BID NGT Last administered on 04/26/17 08 :44; Admin Dose 25 MG; Start 04/11/17 at 21:00 Metoprolol Tartrate (Lopressor) 5 mg Q4H PRN IV HR>110 Hold SBP<110 Last administered on 04/20/17 17:36; Admin Dose 5 MG; Start 04/11/17 at 13:30 Lansoprazole 30 mg 30 mg DAILY GTB Last administered on 04/26/17 08:43; Admin Dose 30 MG; Start 04/12/17 at 09:00 Phenylephrine HCl/ Dextrose ([place]-Syneph/D5W) 500 ml @ 0 mls/hr TITRATE IV Last administered on 04/12/17 02:52; Admin Dose 75 MLS/HR; Start 04/11/17 at 16:00 Miscellaneous Information 1 ea NOTE XX ; Start 04/11/17 at 16:30 Glucose (Glutose) 15 gm Q15M PRN PO DECREASED GLUCOSE; Start 04/11/17 at 16:30 Glucose (Glutose) 22.5 gm Q15M PRN PO DECREASED GLUCOSE; Start 04/11/17 at 16: 30 Dextrose (D50w Syringe) 25 ml Q15M PRN IV DECREASED GLUCOSE Last administered on 04/12/17 23:56; Admin Dose 25 ML; Start 04/11/17 at 16:30 Dextrose (D50w Syringe) 50 ml Q15M PRN IV DECREASED GLUCOSE; Start 04/11/17 at 16:30 Glucagon (Glucagen) 1 mg Q15M PRN IM DECREASED GLUCOSE; Start 04/11/17 at 16:30 Glucose 15 gm 15 gm Q15M PRN BUCCAL DECREASED GLUCOSE; Start 04/11/17 at 16:30 Midazolam HCl 50 ml @ 1 mls/hr TITRATE IV Last administered on 04/13/17 04:30; Admin Dose 2 MLS/HR; Start 04/11/17 at 23:30 Fentanyl (Sublimaze) 100 ml @ 0.5 mls/hr TITRATE IV Last administered on 02:48; Admin Dose 0.5 MLS/HR; Start 04/12/17 at 09:30 Metoclopramide HCl (Reglan) 10 mg Q6 IV Last administered on 04/26/17 05:51; Admin Dose 10 MG; Start 04/12/17 at 18:00 Insulin Aspart (Novolog Insulin Pen) NOVOLOG *MILD* ALGORI... Q6H SC Last administered on 04/26/17 00:09; Admin Dose 1 UNIT; Start 04/15/17 at 00:00 Metronidazole (Flagyl) 500 mg Q8 NGT Last administered on 04/26/17 05:51; Admin Dose 500 MG; Start 04/15/17 at 14:00 IV Flush (NS 10 ml) 10 ml PRN PRN IV FLUSH LINE; Start 04/15/17 at 13:00 Hydrocortisone (Solu-Cortef) 25 mg TID IV Last administered on 04/26/17 08:43 ; Admin Dose 25 MG; Start 04/16/17 at 13:00 Amiodarone HCl (Cordarone) 200 mg BID GTB Last administered on 04/26/17 08:43 ; Admin Dose 200 MG; Start 04/16/17 at 13:00 Diltiazem HCl (Cardizem Iv) 5 mg Q1H PRN IV AFIB GREATER THAN 110 Last administered on 04/17/17 16:41; Admin Dose 5 MG; Start 04/16/17 at 13:00 Enoxaparin Sodium (Lovenox) 40 mg HS SC Last administered on 04/17/17 20:38; Admin Dose 40 MG; Start 04/17/17 at 21:00; Status Future Hold Heparin Sodium (Porcine) (Heparin (5000 Units/0.5 ml)) 5,000 unit BID SC Last administered on 04/26/17 08:48; Admin Dose 5,000 UNIT; Start 04/18/17 at 16:22 Acetaminophen/ Hydrocodone Bitart ([place] (5/325)) 2 tab Q4H PRN NGT MODERATE PAIN LEVEL 4-6 Last administered on 04/24/17 09:21; Admin Dose 2 TAB; Start 04/18/17 at 17:30 Citalopram Hydrobromide (Celexa) 20 mg DAILY NGT Last administered on 08:43; Admin Dose 20 MG; Start 04/19/17 at 09:00 Hydralazine HCl 20 mg 20 mg Q6H PRN IV sbp ABOVE 160 Last administered on 12:09; Admin Dose 20 MG; Start 04/18/17 at 18:30 Caspofungin 50 mg/ Sodium Chloride 250 ml @ 250 mls/hr Q24H IV Last administered on 04/25/17 09:37; Admin Dose 250 MLS/HR; Start 04/21/17 at 10:00 Meropenem/Sodium Chloride (Merrem 1 Gm/50 ml (Pmx)) 50 ml @ 200 mls/hr Q12 IVPB Last administered on 04/26/17 08:43; Admin Dose 200 MLS/HR; Start at 21:00 Chlorhexidine Gluconate (Peridex) 15 ml BID MT Last administered on 04/26/17 08:43; Admin Dose 15 ML; Start 04/22/17 at 21:00 Vitamin A/Vitamin D (Vitamin A & D Oint) 1 applic TID TOP Last administered on 04/26/17 08:44; Admin Dose 1 APPLIC; Start 04/22/17 at 21:00 Vitamin A/Vitamin D (Vitamin A & D Oint) 1 applic TID PRN TOP DRYNESS Last administered on 04/22/17 15:29; Admin Dose 1 APPLIC; Start 04/22/17 at 15:00 Acetaminophen/ Hydrocodone Bitart ([place] (5/325)) 1 tab Q6H GTB Last administered on 04/26/17 03:52; Admin Dose 1 TAB; Start 04/22/17 at 21:30 Valacyclovir HCl (Valtrex) 500 mg BID PO Last administered on 04/26/17 08:44; Admin Dose 500 MG; Start 04/24/17 at 21:00; Stop 05/01/17 at 21:59 Potassium Chloride (Potassium Chloride Pwd/Soln) 20 meq BID NGT Last administered on 04/26/17 08:44; Admin Dose 20 MEQ; Start 04/25/17 at 21:00 Spironolactone (Aldactone) 25 mg DAILY NGT Last administered on 04/26/17 08:43 ; Admin Dose 25 MG; Start 04/25/17 at 19:00 MARGOT WILLS NP Apr 26, 2017 09:57
[2017-04-26] MEDS: CASPOFUNGIN 50 MG in NS 250 ML IV SCH (10:11)
--- NOTE | 2017-04-26 10:49 | PN ---
Date/Time of Note Date/Time of Note DATE: 04/26/17 TIME: 10:22 Assessment/Plan Lines/Catheters IV Catheter Type (from [facility]): PICC Line Latif in Place (from [facility]): Yes Assessment/Plan Chief Complaint/Hosp Course 1. Cholelithiasis ? cholecystitis: Ct abd: sludge and small stones in the gallbladder. No gallbladder wall thickening is noted with some pericholecystic fluid is present. Patient off pressors; GT/OGT no output; HIDA positive; IR drain placement cancelled by radiologist since US without evidence of infection. Therefore, Dr. Guadalupe believes the HIDA is false positive. Tolerating tube feeds, on hold currently for weaning; had BM yesterday -No surgical intervention required at this time -will await medical optimization 2. Pneumonia: Recurrent; no fevers; intubated; less secretion sputum cx: PSEUDOMONAS AERUGINOSA, K PNEUMO ESBL, NASRIN GLABRATA; appears comfortable; attempt to wean today -pulmonary toilet -abx per ID -diuresis -bipap 3. Vent dependent respiratory failure: 2/2 aspiration PNA+ CHF;reintubated, coded 04/21; comfortable; attempt to wean again today -as above 4. Septic shock: improved -on abx -supportive 5. Uncontrolled Afib: s/p amiodarone drip, on oral amiodarone Now SR -medical optimization -lovenox 6. Elevated troponin:NSTEMI; septic shock/demand ischemia -trend 7. Leukocytosis with lactic acidosis: 2/2 pneumonia vs. steroids vs. other ( urine, blood cultures negative);increase -abx -judicious fluid management -supportive measures 8. KEYONNA: likely 2/2 septic shock; s/p code; cr increasing -judicious fluid management -avoid nephrotoxic agents 9. CHF: BNP [id number] -judicious fluid management -medical optimization 10. Adrenal Insufficiency -solucortef 11. Hypomagnesemia: normalized -electrolyte optimization -monitor for cardiac abnormalities 12. Hypothyroidism -cont. synthroid 13. Macrocytic anemia: chronic vs. dilutional vs. acute bleed vs. b12/folate deficiency; h/h stable; noted gtube output coffee ground yesterday (? bleeding from mouth); h/h stable -monitor -Transfuse as needed 14. Transaminitis: likely 2/2 septic shock vs. cholecystitis; normalized -trend, monitor 15. Diarrhea: 2/2 abx vs. enteritis: resolved; tolerating tf -? probiotics 16. Thrombocytosis: 2/2 inflammatory vs. drug induced vs. other; normalized -monitor -bleeding precautions -supportive 17. Encephalopathy: 2/2 toxic metabolic vs. anoxic injury; CT: No acute intracranial hemorrhage or mass effect. Mild chronic microvascular disease and intracranial atherosclerosis; more alert and communicative; EEG shows no seizure activity -supportive 18. Bilateral upper extremity edema: likely 2/2 decreased movement vs. thrombosis; initial doppler negative, repeat doppler left arm (+) Thrombus -elevate extremities -supportive -anticoagulation 19. Hypoalbuminemia: 2/2 malnutrition +/- inflammation; decreased; tolerating tf ; improving -nutrition optimization -as above 20 Hypernatremia: -judicious fluid management Patient seen and examined in collaboration with Dr. Justus Antonio Problems: Subjective 24 Hr Interval Summary Responsive. feels well. reports sleeping well last night. + flatus. comfortable on vent. Attempt to wean today. tf off for weaning. No abdominal pain. No fevers, chills, n/v/d, sob, cp, palpitations, metzger, dizziness, sz Exam/Review of Systems Vital Signs Vitals Vital Signs Date Time Temp Pulse Resp B/P Pulse Ox O2 Delivery O2 Flow Rate FiO2 04/27/17 08:00 81 04/27/17 08:00 96.1 18 156/66 100 Nasal Cannula 04/27/17 00:05 3.0 04/26/17 13:30 30 Intake and Output 04/26/17 04/26/17 04/27/17 15:00 23:00 07:00 Intake Total 400 ml 200 ml 110 ml Output Total 590 ml 390 ml 270 ml Balance -190 ml -190 ml -160 ml Exam Free Text/Dictation Constitutional: Awake, appears comfortable Head: atraumatic, normocephalic Eyes: PERRL, nl lids, nl sclera ENMT: No mucosa pink and moist (pink and dry), reintubated, comfortable on vent Neck: non-tender, supple Respiratory: no wheezing, rhonchi, comfortable Cardiovascular: nl pulses, regular rate and rhythm, NSR, Gastrointestinal: soft, GT tubes site no erythema, no drainage, min tenderness, Genitourinary - Female: nl external genitalia Musculoskeletal: nl extremities to inspection Extremities: normal pulses, bilateral upper/lower extremity edema Neurological: more responsive Skin: nl turgor, No rash or lesions Lymph: nl lymph nodes Results Result Diagram: 04/27/17 0430 04/27/17 0430 ADDISON FREGOSO NP Apr 26, 2017 10:32
--- NOTE | 2017-04-26 11:36 | CONS ---
Date/Time of Note Date/Time of Note DATE: 04/26/17 TIME: 11:35 Consult Date/Type/Reason Admit Date/Time Apr 11, 2017 at 11:28 Initial Consult Date 04/12/17 Type of Consultation: Pulmonary ICU Ordering Provider: NINA MACIEL DO Subjective Patient comfortable this morning no new events awake and alert on SIMV. Objective Vital Signs Date Time Temp Pulse Resp B/P Pulse Ox O2 Delivery O2 Flow Rate FiO2 04/26/17 10:20 30 04/26/17 10:00 79 23 139/74 100 Mechanical Ventilator 04/26/17 08:00 96.9 Intake and Output 04/25/17 04/25/17 04/26/17 15:00 23:00 07:00 Intake Total 870 ml 525 ml 400 ml Output Total 640 ml 830 ml 405 ml Balance 230 ml -305 ml -5 ml Exam GENERAL: Chronically ill-appearing elderly lady on mechanical ventilation, awake and alert follows simple commands VITAL SIGNS: per chart NECK: Supple. No JVD or lymphadenopathy. Stoma site has dressing in place CARDIAC EXAM: S1, S2. No added sounds or murmurs. CHEST: Diminished air entry bilaterally poor effort ABDOMEN: Soft, nontender. No guarding or rebound. EXTREMITIES: No cyanosis, clubbing edema +2 NEUROLOGIC: Generalized weakness. Results/Medications Result Diagram: 04/26/17 0400 04/26/17 0400 Results 24 hrs Chest x-ray Improved lung aeration mild pulmonary edema Laboratory Tests Test 04/25/17 11:52 04/25/17 14:29 04/25/17 17:50 04/25/17 23:58 Bedside Glucose 128 154 143 Blood Gas Specimen Source Blood arterial Arterial Blood Date Drawn 04/25/2017 2:30:39 PM Arterial Blood pH (Temp corrected) 7.478 H Arterial Blood pCO2 (Temp correct) 34.8 L Arterial Blood pO2 (Temp corrected) 60.3 L Arterial Blood HCO3 25.2 Arterial Blood Base Excess 1.7 Arterial Blood Oxygen Saturation 93.0 L Jonn Test ACCEPTAB Arterial Blood Gas Puncture Site Right Radial Arterial Blood Carboxyhemoglobin 0.3 Arterial Blood Methemoglobin 0.4 Blood Gas A-a O2 Differential 112.7 H Oxyhemoglobin Percent 92.3 L Total Hemoglobin 7.9 L Blood Gas Temperature 37.0 Blood Gas Actual Respiration Rate 22 Blood Gas Modality VENT - CPAP FiO2 30.0 Blood Gas Low PEEP Setting 5.0 Blood Gas Pressure Support 10 Blood Gas Notified Whom JLD Blood Gas Notified Time 04/25/2017 2:44:09 PM Test 04/26/17 04:00 04/26/17 05:56 White Blood Count 19.7 H Red Blood Count 2.58 L Hemoglobin 8.8 L Hematocrit 28.1 L Mean Corpuscular Volume 108.9 H Mean Corpuscular Hemoglobin 34.1 H Mean Corpuscular Hemoglobin Concent 31.3 L Red Cell Distribution Width 14.5 Platelet Count 475 H Mean Platelet Volume 11.9 H Neutrophils % 83.1 H Lymphocytes % 5.3 L Monocytes % 7.2 Eosinophils % 0.0 Basophils % 0.2 Nucleated Red Blood Cells % 0.0 Neutrophils # 16.3 H Lymphocytes # 1.1 Monocytes # 1.4 H Eosinophils # 0.0 Basophils # 0.0 Nucleated Red Blood Cells # 0.0 Sodium Level 154 H Potassium Level 4.2 Chloride Level 114 H Carbon Dioxide Level 30 Anion Gap 14 Blood Urea Nitrogen 70 H Creatinine 1.25 H Glucose Level 118 Calcium Level 8.7 Phosphorus Level 4.0 Magnesium Level 2.2 Total Bilirubin 0.0 L Direct Bilirubin 0.00 Indirect Bilirubin 0.0 Aspartate Amino Transf (AST/SGOT) 33 Alanine Aminotransferase (ALT/SGPT) 41 Alkaline Phosphatase 109 Total Protein 5.5 L Albumin 2.9 L Globulin 2.60 Albumin/Globulin Ratio 1.11 Bedside Glucose 136 Medications Current Medications Norepinephrine/ Dextrose (Levophed/D5W) 500 ml @ 0 mls/hr TITRATE IV Last administered on 04/14/17 10:24; Admin Dose 18.75 MLS/HR; Start 04/11/17 at 12:30 Aspirin (Aspirin) 325 mg DAILY NGT Last administered on 04/26/17 08:43; Admin Dose 325 MG; Start 04/12/17 at 09:00 Metoprolol Tartrate (Lopressor) 25 mg BID NGT Last administered on 04/26/17 08 :44; Admin Dose 25 MG; Start 04/11/17 at 21:00 Metoprolol Tartrate (Lopressor) 5 mg Q4H PRN IV HR>110 Hold SBP<110 Last administered on 04/20/17 17:36; Admin Dose 5 MG; Start 04/11/17 at 13:30 Lansoprazole 30 mg 30 mg DAILY GTB Last administered on 04/26/17 08:43; Admin Dose 30 MG; Start 04/12/17 at 09:00 Phenylephrine HCl/ Dextrose (Chuy-Syneph/D5W) 500 ml @ 0 mls/hr TITRATE IV Last administered on 04/12/17 02:52; Admin Dose 75 MLS/HR; Start 04/11/17 at 16:00 Miscellaneous Information 1 ea NOTE XX ; Start 04/11/17 at 16:30 Glucose (Glutose) 15 gm Q15M PRN PO DECREASED GLUCOSE; Start 04/11/17 at 16:30 Glucose (Glutose) 22.5 gm Q15M PRN PO DECREASED GLUCOSE; Start 04/11/17 at 16: 30 Dextrose (D50w Syringe) 25 ml Q15M PRN IV DECREASED GLUCOSE Last administered on 04/12/17 23:56; Admin Dose 25 ML; Start 04/11/17 at 16:30 Dextrose (D50w Syringe) 50 ml Q15M PRN IV DECREASED GLUCOSE; Start 04/11/17 at 16:30 Glucagon (Glucagen) 1 mg Q15M PRN IM DECREASED GLUCOSE; Start 04/11/17 at 16:30 Glucose 15 gm 15 gm Q15M PRN BUCCAL DECREASED GLUCOSE; Start 04/11/17 at 16:30 Midazolam HCl 50 ml @ 1 mls/hr TITRATE IV Last administered on 04/13/17 04:30; Admin Dose 2 MLS/HR; Start 04/11/17 at 23:30 Fentanyl (Sublimaze) 100 ml @ 0.5 mls/hr TITRATE IV Last administered on 02:48; Admin Dose 0.5 MLS/HR; Start 04/12/17 at 09:30 Metoclopramide HCl (Reglan) 10 mg Q6 IV Last administered on 04/26/17 05:51; Admin Dose 10 MG; Start 04/12/17 at 18:00 Insulin Aspart (Novolog Insulin Pen) NOVOLOG *MILD* ALGORI... Q6H SC Last administered on 04/26/17 00:09; Admin Dose 1 UNIT; Start 04/15/17 at 00:00 Metronidazole (Flagyl) 500 mg Q8 NGT Last administered on 04/26/17 05:51; Admin Dose 500 MG; Start 04/15/17 at 14:00 IV Flush (NS 10 ml) 10 ml PRN PRN IV FLUSH LINE; Start 04/15/17 at 13:00 Hydrocortisone (Solu-Cortef) 25 mg TID IV Last administered on 04/26/17 08:43 ; Admin Dose 25 MG; Start 04/16/17 at 13:00 Amiodarone HCl (Cordarone) 200 mg BID GTB Last administered on 04/26/17 08:43 ; Admin Dose 200 MG; Start 04/16/17 at 13:00 Diltiazem HCl (Cardizem Iv) 5 mg Q1H PRN IV AFIB GREATER THAN 110 Last administered on 04/17/17 16:41; Admin Dose 5 MG; Start 04/16/17 at 13:00 Enoxaparin Sodium (Lovenox) 40 mg HS SC Last administered on 04/17/17 20:38; Admin Dose 40 MG; Start 04/17/17 at 21:00; Status Future Hold Heparin Sodium (Porcine) (Heparin (5000 Units/0.5 ml)) 5,000 unit BID SC Last administered on 04/26/17 08:48; Admin Dose 5,000 UNIT; Start 04/18/17 at 16:22 Acetaminophen/ Hydrocodone Bitart ([place] (5/325)) 2 tab Q4H PRN NGT MODERATE PAIN LEVEL 4-6 Last administered on 04/24/17 09:21; Admin Dose 2 TAB; Start 04/18/17 at 17:30 Citalopram Hydrobromide (Celexa) 20 mg DAILY NGT Last administered on 08:43; Admin Dose 20 MG; Start 04/19/17 at 09:00 Hydralazine HCl 20 mg 20 mg Q6H PRN IV sbp ABOVE 160 Last administered on 12:09; Admin Dose 20 MG; Start 04/18/17 at 18:30 Caspofungin/ Sodium Chloride ([place]anc[place]/NS) 250 ml @ 250 mls/hr Q24H IV Last administered on 04/26/17 10:11; Admin Dose 250 MLS/HR; Start 04/21/17 at 10:00 Chlorhexidine Gluconate (Peridex) 15 ml BID MT Last administered on 04/26/17 08:43; Admin Dose 15 ML; Start 04/22/17 at 21:00 Vitamin A/Vitamin D (Vitamin A & D Oint) 1 applic TID TOP Last administered on 04/26/17 08:44; Admin Dose 1 APPLIC; Start 04/22/17 at 21:00 Vitamin A/Vitamin D (Vitamin A & D Oint) 1 applic TID PRN TOP DRYNESS Last administered on 04/22/17 15:29; Admin Dose 1 APPLIC; Start 04/22/17 at 15:00 Acetaminophen/ Hydrocodone Bitart ([place] (5/325)) 1 tab Q6H GTB Last administered on 04/26/17 10:11; Admin Dose 1 TAB; Start 04/22/17 at 21:30 Valacyclovir HCl (Valtrex) 500 mg BID PO Last administered on 04/26/17 08:44; Admin Dose 500 MG; Start 04/24/17 at 21:00; Stop 05/01/17 at 21:59 Potassium Chloride (Potassium Chloride Pwd/Soln) 20 meq BID NGT Last administered on 04/26/17 08:44; Admin Dose 20 MEQ; Start 04/25/17 at 21:00 Spironolactone (Aldactone) 25 mg DAILY NGT Last administered on 04/26/17 08:43 ; Admin Dose 25 MG; Start 04/25/17 at 19:00 Assessment/Plan Chief Complaint/Hosp Course IMP: 1. Status post septic Shock--likely due to multilobar aspiration pneumonia vs. HCAP possibly secondary to acute cholecystitis also 2. Multifocal pneumonia aspiration vs.HCAP, persistent leukocytosis chest x-ray shows improved lung aeration 3. Hypercapnic Respiratory Failure--likely due to critical illness myopathy/ neuropathy 4. Status post lactic acidosis. 5. Demand Ischemia 6. Cholecystitis, 7. Dysphagia continues tube feeding RECS: 1. Continue mechanical ventilation. CPAP trial this morning 2. Oral care. 3. ABG: Monitor PCO2 4. Tube feeding 40 cc an hour 5. Continue antibiotics 6. Continue physical therapy 7. Surgical recommendations Critical care time 40 minutes. Case d/w RN and patient's I had a long discussion with patient's at bedside regarding reintubation if needed. He agrees to reintubation I have told him that if this happens she will need tracheostomy. Problems: DARWIN CRAWFORD MD, [facility] Apr 26, 2017 11:36
[2017-04-26 12:44] LABS: AADO2 Arterial 78.7 mmHg (7.0-24.0); Allen Test ACCEPTAB; Arterial Base Excess 2.9 mmol/L (-3.0-3); Arterial COHb 0.3 % (0.0-3.0); Arterial Fraction of Oxyhgb 95.2 % (93.0-99.0); Arterial HCO3 28.1 mmol/L (22.0-26.0); Arterial MetHb 0.2 % (0.0-1.5); Arterial Total Hemglobin 9.2 g/dl (12.0-18.0); Blood Gas PS 10; MODE VENT - PSV
[2017-04-26] MEDS: hydrALAzine 20 MG INJ IV PRN (19:03)
[2017-04-27] VITALS (24 sets, daily range): BP systolic 127–163; BP diastolic 57–85; PULSE 62–98; RESP 7–22
[2017-04-27] MEDS: METOCLOPRAMIDE 10 MG INJ IV SCH ×4 (00:38→17:44)
[2017-04-27 05:13] LABS: ADD SCAN DIFF NO
[2017-04-27 05:16] LABS: BASOPHILS % 0.1 % (0.0-2.0); HEMOGLOBIN 8.7 g/dl (12.0-16.0); LYMPHOCYTES # 0.8 10^3/ul (0.8-2.9); LYMPHOCYTES % 3.6 % (15.0-51.0); MEAN CORPUSCULAR HEMOGLOBIN 33.3 pg (29.0-33.0); MEAN CORPUSCULAR VOLUME 111.1 fl (82.0-101.0); MEAN PLATELET VOLUME 11.7 fl (7.4-10.4); MONOCYTE # 1.3 10^3/ul (0.3-0.9); MONOCYTES % 5.9 % (0.0-11.0); NEUTROPHIL # 18.9 10^3/ul (1.6-7.5); PLATELET COUNT 489 10^3/UL (140-415); RED BLOOD COUNT 2.61 10^6/ul (4.20-5.40)
[2017-04-27 05:41] LABS: CREATININE 1.23 mg/dl (0.44-1.00); MAGNESIUM 2.3 mg/dl (1.7-2.5); PHOSPHORUS 5.1 mg/dl (2.5-4.9); POTASSIUM 4.9 mmol/L (3.5-5.1)
[2017-04-27] MEDS: INSULIN ASPART [NOVOLOG] 3 ML PEN SC SCH ×4 (06:00→17:46)
[2017-04-27] MEDS: FUROSEMIDE 40 MG INJ IV SCH ×2 (06:25→17:44)
[2017-04-27] MEDS: metroNIDAZOLE 500 MG TAB NGT SCH ×3 (06:25→21:13)
[2017-04-27] MEDS: LEVOTHYROXINE 75 MCG TAB GTB SCH (06:26)
--- NOTE | 2017-04-27 07:30 | CONS ---
Date/Time of Note Date/Time of Note DATE: 04/27/17 TIME: 07:24 Consult Date/Type/Reason Admit Date/Time Apr 11, 2017 at 11:28 Initial Consult Date 04/14/17 Type of Consultation: im Ordering Provider: NINA GANDHI DO Subjective This is a 66-year-old female with a past medical history of tongue cancer status post section reconstruction 10 years ago.. The patient approximately 16 months ago had clinical decompensation respiratory failure underwent trach and PEG. The patient was transferred to [facility] where she underwent weaning off of that. The patient was subsequently transferred to half-way as had previous hospital stays for sepsis pneumonia and respiratory failure. Most recently in her last hospital stay follow the patient was successfully decannulated and removal with removal of PEG. She was subsequently transferred back to senior care facility. She now presents yesterday to [facility] emergency room with hypoxemic respiratory failure. After an episode of acid emesis and concern of aspiration pneumonitis pneumonia. In the emergency room the patient was critically ill was intubated was in septic shock placed on pressure support IV pressors and IV antibiotics and transferred to the intensive care unit for further care. In the emergency room the patient had a CT of the abdomen pelvis which showed evidence of pericholecystic fluid possile cholecystitis. Patient also had noted infiltrates in her lungs bilaterally and noted to be in shock.Patient had normal renal function on admission her creatinine is increased. Interim events was extubated but went into respiratory distress requiring bipap. deteriorated and required reintubation. overnight extubated and now on nasal cannula. poc reviewed with and dr. gandhi. GENERAL: Chronically ill-appearing elderly lady on mechanical ventilation, awake and alert follows simple commands VITAL SIGNS: per chart NECK: Supple. No JVD or lymphadenopathy. Stoma site has dressing in place CARDIAC EXAM: S1, S2. No added sounds or murmurs. CHEST: Diminished air entry bilaterally poor effort ABDOMEN: Soft, nontender. No guarding or rebound. EXTREMITIES: No cyanosis, clubbing edema +2 NEUROLOGIC: Generalized weakness. Objective Vital Signs Date Time Temp Pulse Resp B/P Pulse Ox O2 Delivery O2 Flow Rate FiO2 04/27/17 05:00 77 19 142/59 100 Nasal Cannula 04/27/17 04:00 96.0 04/27/17 00:05 3.0 04/26/17 13:30 30 Intake and Output 04/26/17 04/26/17 04/27/17 15:00 23:00 07:00 Intake Total 400 ml 200 ml 50 ml Output Total 590 ml 390 ml 230 ml Balance -190 ml -190 ml -180 ml Results/Medications Result Diagram: 04/27/17 0430 04/27/17 0430 Results 24 hrs Laboratory Tests Test 04/26/17 11:59 04/26/17 12:30 04/26/17 19:04 04/27/17 00:27 Bedside Glucose 137 143 125 Blood Gas Specimen Source Blood arterial Arterial Blood Date Drawn 04/26/2017 12:38:53 PM Arterial Blood pH (Temp corrected) 7.401 Arterial Blood pCO2 (Temp correct) 46.3 H Arterial Blood pO2 (Temp corrected) 80.8 Arterial Blood HCO3 28.1 H Arterial Blood Base Excess 2.9 Arterial Blood Oxygen Saturation 95.7 Jonn Test ACCEPTAB Arterial Blood Gas Puncture Site Right Radial Arterial Blood Carboxyhemoglobin 0.3 Arterial Blood Methemoglobin 0.2 Blood Gas A-a O2 Differential 78.7 H Oxyhemoglobin Percent 95.2 Total Hemoglobin 9.2 L Blood Gas Temperature 37.0 Blood Gas Actual Respiration Rate 21 Blood Gas Modality VENT - PSV FiO2 30.0 Blood Gas Low PEEP Setting 5.0 Blood Gas Pressure Support 10 Blood Gas Notified Whom Blood Gas Notified Time 04/26/2017 12:44:21 PM Test 04/27/17 04:30 04/27/17 06:41 White Blood Count 22.0 H Red Blood Count 2.61 L Hemoglobin 8.7 L Hematocrit 29.0 L Mean Corpuscular Volume 111.1 H Mean Corpuscular Hemoglobin 33.3 H Mean Corpuscular Hemoglobin Concent 30.0 L Red Cell Distribution Width 15.0 H Platelet Count 489 H Mean Platelet Volume 11.7 H Neutrophils % 86.0 H Lymphocytes % 3.6 L Monocytes % 5.9 Eosinophils % 0.0 Basophils % 0.1 Nucleated Red Blood Cells % 0.0 Neutrophils # 18.9 H Lymphocytes # 0.8 Monocytes # 1.3 H Eosinophils # 0.0 Basophils # 0.0 Nucleated Red Blood Cells # 0.0 Sodium Level 153 H Potassium Level 4.9 Chloride Level 114 H Carbon Dioxide Level 29 Anion Gap 15 Blood Urea Nitrogen 73 H Creatinine 1.23 H Glucose Level 119 Calcium Level 9.0 Phosphorus Level 5.1 H Magnesium Level 2.3 Bedside Glucose 122 Medications Current Medications Norepinephrine/ Dextrose (Levophed/D5W) 500 ml @ 0 mls/hr TITRATE IV Last administered on 04/14/17 10:24; Admin Dose 18.75 MLS/HR; Start 04/11/17 at 12:30 Aspirin (Aspirin) 325 mg DAILY NGT Last administered on 04/26/17 08:43; Admin Dose 325 MG; Start 04/12/17 at 09:00 Metoprolol Tartrate (Lopressor) 25 mg BID NGT Last administered on 04/26/17 20 :46; Admin Dose 25 MG; Start 04/11/17 at 21:00 Metoprolol Tartrate (Lopressor) 5 mg Q4H PRN IV HR>110 Hold SBP<110 Last administered on 04/20/17 17:36; Admin Dose 5 MG; Start 04/11/17 at 13:30 Lansoprazole 30 mg 30 mg DAILY GTB Last administered on 04/26/17 08:43; Admin Dose 30 MG; Start 04/12/17 at 09:00 Phenylephrine HCl/ Dextrose (Chuy-Syneph/D5W) 500 ml @ 0 mls/hr TITRATE IV Last administered on 04/12/17 02:52; Admin Dose 75 MLS/HR; Start 04/11/17 at 16:00 Miscellaneous Information 1 ea NOTE XX ; Start 04/11/17 at 16:30 Glucose (Glutose) 15 gm Q15M PRN PO DECREASED GLUCOSE; Start 04/11/17 at 16:30 Glucose (Glutose) 22.5 gm Q15M PRN PO DECREASED GLUCOSE; Start 04/11/17 at 16: 30 Dextrose (D50w Syringe) 25 ml Q15M PRN IV DECREASED GLUCOSE Last administered on 04/12/17 23:56; Admin Dose 25 ML; Start 04/11/17 at 16:30 Dextrose (D50w Syringe) 50 ml Q15M PRN IV DECREASED GLUCOSE; Start 04/11/17 at 16:30 Glucagon (Glucagen) 1 mg Q15M PRN IM DECREASED GLUCOSE; Start 04/11/17 at 16:30 Glucose 15 gm 15 gm Q15M PRN BUCCAL DECREASED GLUCOSE; Start 04/11/17 at 16:30 Midazolam HCl 50 ml @ 1 mls/hr TITRATE IV Last administered on 04/13/17 04:30; Admin Dose 2 MLS/HR; Start 04/11/17 at 23:30 Fentanyl (Sublimaze) 100 ml @ 0.5 mls/hr TITRATE IV Last administered on 02:48; Admin Dose 0.5 MLS/HR; Start 04/12/17 at 09:30 Metoclopramide HCl (Reglan) 10 mg Q6 IV Last administered on 04/27/17 06:25; Admin Dose 10 MG; Start 04/12/17 at 18:00 Insulin Aspart (Novolog Insulin Pen) NOVOLOG *MILD* ALGORI... Q6H SC Last administered on 04/26/17 19:06; Admin Dose 1 UNIT; Start 04/15/17 at 00:00 Metronidazole (Flagyl) 500 mg Q8 NGT Last administered on 04/27/17 06:25; Admin Dose 500 MG; Start 04/15/17 at 14:00 IV Flush (NS 10 ml) 10 ml PRN PRN IV FLUSH LINE; Start 04/15/17 at 13:00 Hydrocortisone (Solu-Cortef) 25 mg TID IV Last administered on 04/26/17 20:45 ; Admin Dose 25 MG; Start 04/16/17 at 13:00 Amiodarone HCl (Cordarone) 200 mg BID GTB Last administered on 04/26/17 20:50 ; Admin Dose 200 MG; Start 04/16/17 at 13:00 Diltiazem HCl (Cardizem Iv) 5 mg Q1H PRN IV AFIB GREATER THAN 110 Last administered on 04/17/17 16:41; Admin Dose 5 MG; Start 04/16/17 at 13:00 Enoxaparin Sodium (Lovenox) 40 mg HS SC Last administered on 04/17/17 20:38; Admin Dose 40 MG; Start 04/17/17 at 21:00; Status Future Hold Heparin Sodium (Porcine) (Heparin (5000 Units/0.5 ml)) 5,000 unit BID SC Last administered on 04/26/17 20:49; Admin Dose 5,000 UNIT; Start 04/18/17 at 16:22 Acetaminophen/ Hydrocodone Bitart ([place] (5/325)) 2 tab Q4H PRN NGT MODERATE PAIN LEVEL 4-6 Last administered on 04/24/17 09:21; Admin Dose 2 TAB; Start 04/18/17 at 17:30 Citalopram Hydrobromide (Celexa) 20 mg DAILY NGT Last administered on 08:43; Admin Dose 20 MG; Start 04/19/17 at 09:00 Hydralazine HCl 20 mg 20 mg Q6H PRN IV sbp ABOVE 160 Last administered on 19:03; Admin Dose 20 MG; Start 04/18/17 at 18:30 Caspofungin/ Sodium Chloride (Cancidas/NS) 250 ml @ 250 mls/hr Q24H IV Last administered on 04/26/17 10:11; Admin Dose 250 MLS/HR; Start 04/21/17 at 10:00 Chlorhexidine Gluconate (Peridex) 15 ml BID MT Last administered on 04/26/17 20:51; Admin Dose 15 ML; Start 04/22/17 at 21:00 Vitamin A/Vitamin D (Vitamin A & D Oint) 1 applic TID TOP Last administered on 04/26/17 20:45; Admin Dose 1 APPLIC; Start 04/22/17 at 21:00 Vitamin A/Vitamin D (Vitamin A & D Oint) 1 applic TID PRN TOP DRYNESS Last administered on 04/22/17 15:29; Admin Dose 1 APPLIC; Start 04/22/17 at 15:00 Acetaminophen/ Hydrocodone Bitart ([place] (5/325)) 1 tab Q6H GTB Last administered on 04/26/17 23:10; Admin Dose 1 TAB; Start 04/22/17 at 21:30 Valacyclovir HCl (Valtrex) 500 mg BID PO Last administered on 04/26/17 20:46; Admin Dose 500 MG; Start 04/24/17 at 21:00; Stop 05/01/17 at 21:59 Potassium Chloride (Potassium Chloride Pwd/Soln) 20 meq BID NGT Last administered on 04/26/17 20:46; Admin Dose 20 MEQ; Start 04/25/17 at 21:00 Spironolactone (Aldactone) 25 mg DAILY NGT Last administered on 04/26/17 08:43 ; Admin Dose 25 MG; Start 04/25/17 at 19:00 Assessment/Plan Chief Complaint/Hosp Course 1. Status post code arrest -Etiology was respiratory due to hypoxemia -Patient currently stable on ventilatory support -Monitor closely 2. Nonoliguric keyonna. With previously normal baseline creatinine. Etiology is likely secondary to septic KEYONNA with possible ATN -Renal function has been stable, -Continue treatment plan. Supportive care renally dose meds avoid nephrotoxins -Follow-up renal panel -watch for diuretic phase of keyonna with electrolyte wasting. 3. Sepsis, status post shock. Etiology is likely secondary to aspiration pneumonia, fungemia -Patient currently off pressors. Remains on antibiotics, antifungals - Patient's blood cultures have been reviewed. - Continue current treatment plan Follow-up with infectious disease 3. sp Ventilator dependent respiratory failure. etiology secondary to pneumonia, CHF, critical illness myopathy. -now extubated -Follow-up with pulmonary -ENT consult has been placed 4. Volume overload. Etiology likely secondary to sepsis capillary leak. Possible diastolic heart failure. -Continue Lasix 5. Elevated troponin. Possible non-STEMI type II. We will continue to monitor follow-up with cardiology 6. History of adrenal insufficiency. -Patient currently on stress steroids, -Appreciate endocrinology evaluation 7. Acute encephalopathy etiologies toxic metabolic, possible anoxic injury. Mental status is improving, patient following commands CT scan showed no acute finding Appreciate Dr. Ellis evaluation -Continue to monitor closely 8. possible acute cholecystitis -Patient's HIDA scan was positive - cholecystostomy drain was not placed due to insufficient fluid. -No plan for drain placement at this time. Appreciate surgery's evaluation. 9. Hypothyroidism continue Synthroid 10. Anemia. -Hemoglobin levels have declined, transfuse today. 11. Mineral bone disorder will monitor calcium phosphorus levels 12. h/o tongue cancer with resection 13. History of diastolic heart failure/coronary disease -Continue medical management 14. Leukocytosis. -Etiology is likely secondary sepsis, steroids. -Slowly improving as steroids are being weaned down - Follow-up with infectious disease. 15. Hypomagnesemia. Continue to monitor and replete as needed 16. Left upper extremity DVT. Patient's on heparin and aspirin. Continue to monitor 17. Dysphagia status post PEG -Resume tube feedings, if no further episodes of emesis 18. Arrhythmia Status post amiodarone drip Follow-up with cardio 19. hypernatremia - likely sec to tbw deficit -check urine studies. -adjust ivf. I spent greater than 40 minutes of critical care time with this pt Problems: HILARY RUBIO MD Apr 27, 2017 07:30
[2017-04-27] MEDS: POTASSIUM CHLORIDE 20 MEQ POWDER FOR ORAL SOLN NGT SCH ×2 (09:00→21:06)
[2017-04-27] MEDS: AMIODARONE 200 MG TAB GTB SCH ×2 (09:33→21:07)
[2017-04-27] MEDS: LANSOPRAZOLE 30 MG CAP GTB SCH (09:34)
[2017-04-27] MEDS: CHLORHEXIDINE GLUCONATE 15 ML UD CUP MT SCH ×2 (09:35→21:06)
[2017-04-27] MEDS: HYDROCORTISONE 100 MG INJ IV SCH ×3 (09:35→21:07)
[2017-04-27] MEDS: SPIRONOLACTONE 25 MG TAB NGT SCH (09:38)
[2017-04-27] MEDS: ASPIRIN 325 MG TAB NGT SCH (09:38)
[2017-04-27] MEDS: VALACYCLOVIR 500 MG TAB PO SCH ×2 (09:38→21:06)
[2017-04-27] MEDS: METOPROLOL 25 MG TAB NGT SCH ×2 (09:38→21:07)
[2017-04-27] MEDS: CITALOPRAM 20 MG TAB NGT SCH (09:38)
[2017-04-27] MEDS: VITAMIN A & D 5 GM OINT PACKET TOP SCH ×3 (09:39→21:06)
[2017-04-27] MEDS: HYDROCODONE/APAP (5/325) TAB GTB SCH ×3 (09:40→21:13)
[2017-04-27] MEDS: HEPARIN 5,000 UNIT/0.5 ML VIAL SC SCH ×2 (09:42→21:11)
--- NOTE | 2017-04-27 09:52 | RADRPT ---
PROCEDURE: XR Chest 1 View. CLINICAL INDICATION: Shortness of breath. TECHNIQUE: AP view of the chest was obtained. COMPARISON: Yesterday. FINDINGS: The heart size is within normal limits. Calcified atherosclerosis is noted in the aorta. Right-side d PICC line is stable and appears in grossly appropriate location. Endotracheal tube has been remov ed. Diffuse interstitial prominence in both lungs is unchanged. Scattered atelectasis versus minim al alveolar infiltrates throughout both lungs are stable. No pneumothorax as visualized. Osseous s tructures are unchanged. IMPRESSION: Calcified atherosclerosis in the aorta. Interval extubation. Stable diffuse interstitial prominence in both lungs. Stable superimposed atelectasis versus minimal alveolar infiltrates in both lungs. RPTAT: AA .Jason Rizo MD, MD Date Time Electronically viewed and signed by .Jason Rizo MD, on 04/27/2017 09:51 .P/
--- NOTE | 2017-04-27 10:30 | CONS ---
Date/Time of Note Date/Time of Note DATE: 04/27/17 TIME: 10:28 Consult Date/Type/Reason Admit Date/Time Apr 11, 2017 at 11:28 Initial Consult Date 04/12/17 Type of Consultation: Pulmonary ICU Ordering Provider: NINA MACIEL DO Subjective Patient was extubated yesterday is awake alert comfortable somewhat drowsy this morning but easily arousable Moderate secretions which she is clearing currently. Saturating adequately on nasal cannula oxygen Objective Vital Signs Date Time Temp Pulse Resp B/P Pulse Ox O2 Delivery O2 Flow Rate FiO2 04/27/17 08:00 81 04/27/17 08:00 96.1 18 156/66 100 Nasal Cannula 04/27/17 00:05 3.0 04/26/17 13:30 30 Intake and Output 04/26/17 04/26/17 04/27/17 15:00 23:00 07:00 Intake Total 400 ml 200 ml 110 ml Output Total 590 ml 390 ml 270 ml Balance -190 ml -190 ml -160 ml Exam GENERAL: Chronically ill-appearing elderly lady on nasal cannula oxygen VITAL SIGNS: per chart NECK: Supple. No JVD or lymphadenopathy. Stoma site has dressing in place CARDIAC EXAM: S1, S2. No added sounds or murmurs. CHEST: Diminished air entry bilaterally poor effort ABDOMEN: Soft, nontender. No guarding or rebound. EXTREMITIES: No cyanosis, clubbing edema +2 NEUROLOGIC: Generalized weakness. Results/Medications Result Diagram: 04/27/17 0430 04/27/17 0430 Results 24 hrs Laboratory Tests Test 04/26/17 11:59 04/26/17 12:30 04/26/17 19:04 04/27/17 00:27 Bedside Glucose 137 143 125 Blood Gas Specimen Source Blood arterial Arterial Blood Date Drawn 04/26/2017 12:38:53 PM Arterial Blood pH (Temp corrected) 7.401 Arterial Blood pCO2 (Temp correct) 46.3 H Arterial Blood pO2 (Temp corrected) 80.8 Arterial Blood HCO3 28.1 H Arterial Blood Base Excess 2.9 Arterial Blood Oxygen Saturation 95.7 Jonn Test ACCEPTAB Arterial Blood Gas Puncture Site Right Radial Arterial Blood Carboxyhemoglobin 0.3 Arterial Blood Methemoglobin 0.2 Blood Gas A-a O2 Differential 78.7 H Oxyhemoglobin Percent 95.2 Total Hemoglobin 9.2 L Blood Gas Temperature 37.0 Blood Gas Actual Respiration Rate 21 Blood Gas Modality VENT - PSV FiO2 30.0 Blood Gas Low PEEP Setting 5.0 Blood Gas Pressure Support 10 Blood Gas Notified Whom Blood Gas Notified Time 04/26/2017 12:44:21 PM Test 04/27/17 04:30 04/27/17 06:41 White Blood Count 22.0 H Red Blood Count 2.61 L Hemoglobin 8.7 L Hematocrit 29.0 L Mean Corpuscular Volume 111.1 H Mean Corpuscular Hemoglobin 33.3 H Mean Corpuscular Hemoglobin Concent 30.0 L Red Cell Distribution Width 15.0 H Platelet Count 489 H Mean Platelet Volume 11.7 H Neutrophils % 86.0 H Lymphocytes % 3.6 L Monocytes % 5.9 Eosinophils % 0.0 Basophils % 0.1 Nucleated Red Blood Cells % 0.0 Neutrophils # 18.9 H Lymphocytes # 0.8 Monocytes # 1.3 H Eosinophils # 0.0 Basophils # 0.0 Nucleated Red Blood Cells # 0.0 Sodium Level 153 H Potassium Level 4.9 Chloride Level 114 H Carbon Dioxide Level 29 Anion Gap 15 Blood Urea Nitrogen 73 H Creatinine 1.23 H Glucose Level 119 Calcium Level 9.0 Phosphorus Level 5.1 H Magnesium Level 2.3 Bedside Glucose 122 Medications Current Medications Norepinephrine/ Dextrose (Levophed/D5W) 500 ml @ 0 mls/hr TITRATE IV Last administered on 04/14/17 10:24; Admin Dose 18.75 MLS/HR; Start 04/11/17 at 12:30 Aspirin (Aspirin) 325 mg DAILY NGT Last administered on 04/27/17 09:38; Admin Dose 325 MG; Start 04/12/17 at 09:00 Metoprolol Tartrate (Lopressor) 25 mg BID NGT Last administered on 04/27/17 09 :38; Admin Dose 25 MG; Start 04/11/17 at 21:00 Metoprolol Tartrate (Lopressor) 5 mg Q4H PRN IV HR>110 Hold SBP<110 Last administered on 04/20/17 17:36; Admin Dose 5 MG; Start 04/11/17 at 13:30 Lansoprazole 30 mg 30 mg DAILY GTB Last administered on 04/27/17 09:34; Admin Dose 30 MG; Start 04/12/17 at 09:00 Phenylephrine HCl/ Dextrose (Chuy-Syneph/D5W) 500 ml @ 0 mls/hr TITRATE IV Last administered on 04/12/17 02:52; Admin Dose 75 MLS/HR; Start 04/11/17 at 16:00 Miscellaneous Information 1 ea NOTE XX ; Start 04/11/17 at 16:30 Glucose (Glutose) 15 gm Q15M PRN PO DECREASED GLUCOSE; Start 04/11/17 at 16:30 Glucose (Glutose) 22.5 gm Q15M PRN PO DECREASED GLUCOSE; Start 04/11/17 at 16: 30 Dextrose (D50w Syringe) 25 ml Q15M PRN IV DECREASED GLUCOSE Last administered on 04/12/17 23:56; Admin Dose 25 ML; Start 04/11/17 at 16:30 Dextrose (D50w Syringe) 50 ml Q15M PRN IV DECREASED GLUCOSE; Start 04/11/17 at 16:30 Glucagon (Glucagen) 1 mg Q15M PRN IM DECREASED GLUCOSE; Start 04/11/17 at 16:30 Glucose 15 gm 15 gm Q15M PRN BUCCAL DECREASED GLUCOSE; Start 04/11/17 at 16:30 Midazolam HCl 50 ml @ 1 mls/hr TITRATE IV Last administered on 04/13/17 04:30; Admin Dose 2 MLS/HR; Start 04/11/17 at 23:30 Fentanyl (Sublimaze) 100 ml @ 0.5 mls/hr TITRATE IV Last administered on 02:48; Admin Dose 0.5 MLS/HR; Start 04/12/17 at 09:30 Metoclopramide HCl (Reglan) 10 mg Q6 IV Last administered on 04/27/17 06:25; Admin Dose 10 MG; Start 04/12/17 at 18:00 Insulin Aspart (Novolog Insulin Pen) NOVOLOG *MILD* ALGORI... Q6H SC Last administered on 04/26/17 19:06; Admin Dose 1 UNIT; Start 04/15/17 at 00:00 Metronidazole (Flagyl) 500 mg Q8 NGT Last administered on 04/27/17 06:25; Admin Dose 500 MG; Start 04/15/17 at 14:00 IV Flush (NS 10 ml) 10 ml PRN PRN IV FLUSH LINE; Start 04/15/17 at 13:00 Hydrocortisone (Solu-Cortef) 25 mg TID IV Last administered on 04/27/17 09:35 ; Admin Dose 25 MG; Start 04/16/17 at 13:00 Amiodarone HCl (Cordarone) 200 mg BID GTB Last administered on 04/27/17 09:33 ; Admin Dose 200 MG; Start 04/16/17 at 13:00 Diltiazem HCl (Cardizem Iv) 5 mg Q1H PRN IV AFIB GREATER THAN 110 Last administered on 04/17/17 16:41; Admin Dose 5 MG; Start 04/16/17 at 13:00 Enoxaparin Sodium (Lovenox) 40 mg HS SC Last administered on 04/17/17 20:38; Admin Dose 40 MG; Start 04/17/17 at 21:00; Status Future Hold Heparin Sodium (Porcine) (Heparin (5000 Units/0.5 ml)) 5,000 unit BID SC Last administered on 04/27/17 09:42; Admin Dose 5,000 UNIT; Start 04/18/17 at 16:22 Acetaminophen/ Hydrocodone Bitart ([place] (5/325)) 2 tab Q4H PRN NGT MODERATE PAIN LEVEL 4-6 Last administered on 04/24/17 09:21; Admin Dose 2 TAB; Start 04/18/17 at 17:30 Citalopram Hydrobromide (Celexa) 20 mg DAILY NGT Last administered on 09:38; Admin Dose 20 MG; Start 04/19/17 at 09:00 Hydralazine HCl 20 mg 20 mg Q6H PRN IV sbp ABOVE 160 Last administered on 19:03; Admin Dose 20 MG; Start 04/18/17 at 18:30 Caspofungin/ Sodium Chloride (Cancidas/NS) 250 ml @ 250 mls/hr Q24H IV Last administered on 04/26/17 10:11; Admin Dose 250 MLS/HR; Start 04/21/17 at 10:00 Chlorhexidine Gluconate (Peridex) 15 ml BID MT Last administered on 04/27/17 09:35; Admin Dose 15 ML; Start 04/22/17 at 21:00 Vitamin A/Vitamin D (Vitamin A & D Oint) 1 applic TID TOP Last administered on 04/27/17 09:39; Admin Dose 1 APPLIC; Start 04/22/17 at 21:00 Vitamin A/Vitamin D (Vitamin A & D Oint) 1 applic TID PRN TOP DRYNESS Last administered on 04/22/17 15:29; Admin Dose 1 APPLIC; Start 04/22/17 at 15:00 Acetaminophen/ Hydrocodone Bitart ([place] (5/325)) 1 tab Q6H GTB Last administered on 04/27/17 09:40; Admin Dose 1 TAB; Start 04/22/17 at 21:30 Valacyclovir HCl (Valtrex) 500 mg BID PO Last administered on 04/27/17 09:38; Admin Dose 500 MG; Start 04/24/17 at 21:00; Stop 05/01/17 at 21:59 Potassium Chloride (Potassium Chloride Pwd/Soln) 20 meq BID NGT Last administered on 04/26/17 20:46; Admin Dose 20 MEQ; Start 04/25/17 at 21:00 Spironolactone (Aldactone) 25 mg DAILY NGT Last administered on 04/27/17 09:38 ; Admin Dose 25 MG; Start 04/25/17 at 19:00 Assessment/Plan Chief Complaint/Hosp Course IMP: 1. Status post septic Shock--likely due to multilobar aspiration pneumonia vs. HCAP possibly secondary to acute cholecystitis also 2. Multifocal pneumonia aspiration vs.HCAP, persistent leukocytosis chest x-ray shows improved lung aeration 3. Hypercapnic Respiratory Failure--likely due to critical illness now extubated again on nasal cannula 4. Status post lactic acidosis. 5. Demand Ischemia 6. Cholecystitis, 7. Dysphagia continues tube feeding RECS: 1. Continue pulmonary toilet nasal cannula oxygen 2. Oral care. 3. ABG: Monitor PCO2 4. Resume tube feeding 5. Continue antibiotics 6. Continue physical therapy 7. Surgical recommendations Critical care time 40 minutes. Case d/w RN and patient's Problems: DAR[facility]RAWFORD [facility] Apr 27, 2017 10:30
[2017-04-27] MEDS: CASPOFUNGIN 50 MG in NS 250 ML IV SCH (10:52)
--- NOTE | 2017-04-27 12:02 | PN ---
Date/Time of Note Date/Time of Note DATE: 04/27/17 TIME: 12:00 Assessment/Plan Lines/Catheters IV Catheter Type (from [facility]): PICC Line Latif in Place (from [facility]): Yes Assessment/Plan Chief Complaint/Hosp Course 1. Cholelithiasis ? cholecystitis: Ct abd: sludge and small stones in the gallbladder. No gallbladder wall thickening is noted with some pericholecystic fluid is present. Patient off pressors; GT/OGT no output; HIDA positive; IR drain placement cancelled by radiologist since US without evidence of infection. Therefore, Dr. Guadalupe believes the HIDA is false positive. Tolerating tube feeds; had BM x2; no abdominal pain/discomfort -No surgical intervention required at this time -will await medical optimization 2. Pneumonia: Recurrent; no fevers; intubated; less secretion sputum cx: PSEUDOMONAS AERUGINOSA, K PNEUMO ESBL, NASRIN GLABRATA; appears comfortable;on nasal canula -pulmonary toilet -abx per ID -diuresis 3. Vent dependent respiratory failure: 2/2 aspiration PNA+ CHF;reintubated, coded 04/21; comfortable; extubated -as above 4. Septic shock: improved -on abx -supportive 5. Uncontrolled Afib: s/p amiodarone drip, on oral amiodarone Now SR -medical optimization -lovenox 6. Elevated troponin:NSTEMI; septic shock/demand ischemia -trend 7. Leukocytosis with lactic acidosis: 2/2 pneumonia vs. steroids vs. other ( urine, blood cultures negative);increasing -abx -judicious fluid management -supportive measures 8. KEYONNA: likely 2/2 septic shock; s/p code; cr improving -judicious fluid management -avoid nephrotoxic agents 9. CHF: BNP 02417 -judicious fluid management -medical optimization 10. Adrenal Insufficiency -solucortef 11. Hypomagnesemia: normalized -electrolyte optimization -monitor for cardiac abnormalities 12. Hypothyroidism -cont. synthroid 13. Macrocytic anemia: chronic vs. dilutional vs. acute bleed vs. b12/folate deficiency; h/h stable -monitor -Transfuse as needed 14. Transaminitis: likely 2/2 septic shock vs. cholecystitis; normalized -trend, monitor 15. Diarrhea: 2/2 abx vs. enteritis: resolved; tolerating tf -? probiotics 16. Thrombocytosis: 2/2 inflammatory vs. drug induced vs. other; normalized -monitor -bleeding precautions -supportive 17. Encephalopathy: 2/2 toxic metabolic vs. anoxic injury; CT: No acute intracranial hemorrhage or mass effect. Mild chronic microvascular disease and intracranial atherosclerosis; more alert and communicative; EEG shows no seizure activity -supportive 18. Bilateral upper extremity edema: likely 2/2 decreased movement vs. thrombosis; initial doppler negative, repeat doppler left arm (+) Thrombus -elevate extremities -supportive -anticoagulation 19. Hypoalbuminemia: 2/2 malnutrition +/- inflammation; decreased; tolerating tf ; improving -nutrition optimization -as above 20 Hypernatremia: minimally improved -judicious fluid management Patient seen and examined in collaboration with Dr. Justus Antonio Problems: Subjective 24 Hr Interval Summary Responsive. feels well. +bm, tolerating. extubated. comfortable ton nasal cannula. No abdominal pain. No fevers, chills, n/v/d, sob, cp, palpitations, metzger , dizziness, sz Exam/Review of Systems Vital Signs Vitals Vital Signs Date Time Temp Pulse Resp B/P Pulse Ox O2 Delivery O2 Flow Rate FiO2 04/27/17 08:00 81 04/27/17 08:00 96.1 18 156/66 100 Nasal Cannula 04/27/17 00:05 3.0 04/26/17 13:30 30 Intake and Output 04/26/17 04/26/17 04/27/17 15:00 23:00 07:00 Intake Total 400 ml 200 ml 110 ml Output Total 590 ml 390 ml 270 ml Balance -190 ml -190 ml -160 ml Exam Free Text/Dictation Constitutional: Somnolent, easily arousable, appears comfortable Head: atraumatic, normocephalic Eyes: PERRL, nl lids, nl sclera ENMT: No mucosa pink and moist (pink and moist), extubated Neck: non-tender, supple Respiratory: no wheezing, rhonchi, comfortable, extubated on nasal canula Cardiovascular: nl pulses, regular rate and rhythm, NSR, Gastrointestinal: soft, GT tubes site no erythema, no drainage, min tenderness, Genitourinary - Female: nl external genitalia Musculoskeletal: nl extremities to inspection Extremities: normal pulses, bilateral upper/lower extremity edema Neurological: more responsive Skin: nl turgor, No rash or lesions Lymph: nl lymph nodes Results Result Diagram: 04/27/17 0430 04/27/17 0430 ADDISON FREGOSO NP Apr 27, 2017 12:01
[2017-04-27 12:22] LABS: AADO2 Arterial 25.2 mmHg (7.0-24.0); Allen Test ACCEPTAB; Arterial Base Excess 0.1 mmol/L (-3.0-3); Arterial COHb 0.3 % (0.0-3.0); Arterial Fraction of Oxyhgb 96.2 % (93.0-99.0); Arterial HCO3 26.5 mmol/L (22.0-26.0); Arterial MetHb 0.3 % (0.0-1.5); Arterial Total Hemglobin 10.1 g/dl (12.0-18.0); MODE NASAL CANNULA
--- NOTE | 2017-04-27 17:14 | CONS ---
Date/Time of Note Date/Time of Note DATE: 04/27/17 TIME: 17:09 Assessment/Plan Assessment/Plan Chief Complaint/Hosp Course ID PROGRESS NOTE CURRENT ABX +>Cancidas #6, Flagyl, Valtrex Merrem #14 days-> DC'd 04/26 24H INTERVAL SUMMARY/HOSPITAL COURSE * EXTUBATED 04/26 afternoon -- stable >24H post extubation A/A/O, smiling * BUEXT dependent edema, patient is weak, needs to move arms and elevate = D/W spouse * MICRO: Repeat blood culture on April 24 negative preliminary. Blood culture on April 20 growing yeast, repeat sputum culture on April 21 growing Ramonita species not albicans and Ramonita glabrata * CXR 04/26/17: IMPRESSION: Calcified atherosclerosis in the aorta. Stable diffuse interstitial prominence in both lungs. Stable superimposed atelectasis versus minimal alveolar infiltrates throughout both lungs. PHYSICAL EXAMINATION: GENERAL: 66 yo F, stable on the Vent HEENT: Atraumatic, (+)Lip crusting lesions NECK: (+)Trach CHEST: Rise symmetrical w/coarse BS, scattered rales/rhonchi ABDOMEN: Soft, peg EXTREMITIES: Warm, moves extremities ID ASSESSMENT: 66 yo F w/PMHx tongue cancer, chronic trach re-admit [facility] from SNF with: 1. Acute severe sepsis/shock on admission w/(+)fever, tachycardia, lactic acidosis, leukocytosis, (+)troponin leak = RESOLVING 2. Fungemia 3. Acute respiratory failure = recurrent issue s/p intubation x3rd episode 3. HCAP=> Recurrent Aspiration PNA post emesis // Hx of GNR tracheobronchitis * Sputum (+)Yeast * 04/06/17 (+)PSAR = MDRO * 04/06/17 (+)Proteus Mirabilis 4. Acute CHF w/elevated BNP 8000 in setting tachycardia, sepsis, pulmonary edema on CXR 5. s/p Nausea w/emesis on admission ?etiology -> GI on the case * Query: DM Autonomic Gastroparesis * GERD ? 6. Cholelithiasis w/dilated CBD 7. Recent (+)C.Diff on 03/07/16 (treated) w/(-)C.Diff 03/20/17 8. Dysphagia sp PEG placement 9. Paroxysmal Afib 10. NSTEMI in setting sepsis, tachycardia, acute hypoxic respiratory failure, acute CHF exacerbation 11. Elevated glucose - iatrogenic diabetes while on IV steroids 12. Leukocytosis = partial steroids demargination 13. Lip lesions => DDx pressure ulcer from ETT vs HSV -> Empiric Valtrex started (-) MRSA Nares screen (04/03/17) INVASIVES: ETT, NGT, FC ABX ALLERGY: Iodine CURRENT ABX: +>Cancidas #7, Flagyl, Valtrex Merrem #14 total -> DC'd 04/26 ID PLAN: * Complete 14 day course of Cancidas, monitor OFF Merrem for recurrent Aspiration * BUEXT dependent edema, patient is weak, needs to move arms and elevate = D/W spouse * Repeat cultures PRN TEMP > 101.00 . Problems: Consultation Date/Type/Reason Admit Date/Time Apr 11, 2017 at 11:28 Initial Consult Date 04/11/17 Type of Consultation: ID Referring Provider: NINA MACIEL DO Exam/Review of Systems Vital Signs Vitals Vital Signs Date Time Temp Pulse Resp B/P Pulse Ox O2 Delivery O2 Flow Rate FiO2 04/27/17 16:00 72 04/27/17 12:00 96.7 15 142/64 97 Nasal Cannula 04/27/17 12:00 2.0 04/26/17 13:30 30 Intake and Output 04/26/17 04/26/17 04/27/17 15:00 23:00 07:00 Intake Total 400 ml 200 ml 110 ml Output Total 590 ml 390 ml 380 ml Balance -190 ml -190 ml -270 ml Results Result Diagram: 04/27/17 0430 04/27/17 0430 Results 24 hrs Laboratory Tests Test 04/26/17 19:04 04/27/17 00:27 04/27/17 04:30 04/27/17 06:41 Bedside Glucose 143 125 122 White Blood Count 22.0 H Red Blood Count 2.61 L Hemoglobin 8.7 L Hematocrit 29.0 L Mean Corpuscular Volume 111.1 H Mean Corpuscular Hemoglobin 33.3 H Mean Corpuscular Hemoglobin Concent 30.0 L Red Cell Distribution Width 15.0 H Platelet Count 489 H Mean Platelet Volume 11.7 H Neutrophils % 86.0 H Lymphocytes % 3.6 L Monocytes % 5.9 Eosinophils % 0.0 Basophils % 0.1 Nucleated Red Blood Cells % 0.0 Neutrophils # 18.9 H Lymphocytes # 0.8 Monocytes # 1.3 H Eosinophils # 0.0 Basophils # 0.0 Nucleated Red Blood Cells # 0.0 Sodium Level 153 H Potassium Level 4.9 Chloride Level 114 H Carbon Dioxide Level 29 Anion Gap 15 Blood Urea Nitrogen 73 H Creatinine 1.23 H Glucose Level 119 Calcium Level 9.0 Phosphorus Level 5.1 H Magnesium Level 2.3 Test 04/27/17 07:00 04/27/17 12:31 Blood Gas Specimen Source Blood arterial Arterial Blood Date Drawn 04/27/2017 7:35:00 AM Arterial Blood pH (Temp corrected) 7.331 L Arterial Blood pCO2 (Temp correct) 51.3 H Arterial Blood pO2 (Temp corrected) 99.4 Arterial Blood HCO3 26.5 H Arterial Blood Base Excess 0.1 Arterial Blood Oxygen Saturation 96.8 Jonn Test ACCEPTAB Arterial Blood Gas Puncture Site Right Radial Arterial Blood Carboxyhemoglobin 0.3 Arterial Blood Methemoglobin 0.3 Blood Gas A-a O2 Differential 25.2 H Oxyhemoglobin Percent 96.2 Total Hemoglobin 10.1 L Blood Gas Temperature 37.0 Blood Gas Modality NASAL CANNULA FiO2 26.0 Blood Gas Notified Whom SM Blood Gas Notified Time 04/27/2017 7:53:09 AM Bedside Glucose 113 Medications Medications Current Medications Norepinephrine/ Dextrose (Levophed/D5W) 500 ml @ 0 mls/hr TITRATE IV Last administered on 04/14/17 10:24; Admin Dose 18.75 MLS/HR; Start 04/11/17 at 12:30 Aspirin (Aspirin) 325 mg DAILY NGT Last administered on 04/27/17 09:38; Admin Dose 325 MG; Start 04/12/17 at 09:00 Metoprolol Tartrate (Lopressor) 25 mg BID NGT Last administered on 04/27/17 09 :38; Admin Dose 25 MG; Start 04/11/17 at 21:00 Metoprolol Tartrate (Lopressor) 5 mg Q4H PRN IV HR>110 Hold SBP<110 Last administered on 04/20/17 17:36; Admin Dose 5 MG; Start 04/11/17 at 13:30 Lansoprazole 30 mg 30 mg DAILY GTB Last administered on 04/27/17 09:34; Admin Dose 30 MG; Start 04/12/17 at 09:00 Phenylephrine HCl/ Dextrose (Chuy-Syneph/D5W) 500 ml @ 0 mls/hr TITRATE IV Last administered on 04/12/17 02:52; Admin Dose 75 MLS/HR; Start 04/11/17 at 16:00 Miscellaneous Information 1 ea NOTE XX ; Start 04/11/17 at 16:30 Glucose (Glutose) 15 gm Q15M PRN PO DECREASED GLUCOSE; Start 04/11/17 at 16:30 Glucose (Glutose) 22.5 gm Q15M PRN PO DECREASED GLUCOSE; Start 04/11/17 at 16: 30 Dextrose (D50w Syringe) 25 ml Q15M PRN IV DECREASED GLUCOSE Last administered on 04/12/17 23:56; Admin Dose 25 ML; Start 04/11/17 at 16:30 Dextrose (D50w Syringe) 50 ml Q15M PRN IV DECREASED GLUCOSE; Start 04/11/17 at 16:30 Glucagon (Glucagen) 1 mg Q15M PRN IM DECREASED GLUCOSE; Start 04/11/17 at 16:30 Glucose 15 gm 15 gm Q15M PRN BUCCAL DECREASED GLUCOSE; Start 04/11/17 at 16:30 Midazolam HCl 50 ml @ 1 mls/hr TITRATE IV Last administered on 04/13/17 04:30; Admin Dose 2 MLS/HR; Start 04/11/17 at 23:30 Fentanyl (Sublimaze) 100 ml @ 0.5 mls/hr TITRATE IV Last administered on 02:48; Admin Dose 0.5 MLS/HR; Start 04/12/17 at 09:30 Metoclopramide HCl (Reglan) 10 mg Q6 IV Last administered on 04/27/17 12:32; Admin Dose 10 MG; Start 04/12/17 at 18:00 Insulin Aspart (Novolog Insulin Pen) NOVOLOG *MILD* ALGORI... Q6H SC Last administered on 04/26/17 19:06; Admin Dose 1 UNIT; Start 04/15/17 at 00:00 Metronidazole (Flagyl) 500 mg Q8 NGT Last administered on 04/27/17 14:24; Admin Dose 500 MG; Start 04/15/17 at 14:00 IV Flush (NS 10 ml) 10 ml PRN PRN IV FLUSH LINE; Start 04/15/17 at 13:00 Hydrocortisone (Solu-Cortef) 25 mg TID IV Last administered on 04/27/17 12:32 ; Admin Dose 25 MG; Start 04/16/17 at 13:00 Amiodarone HCl (Cordarone) 200 mg BID GTB Last administered on 04/27/17 09:33 ; Admin Dose 200 MG; Start 04/16/17 at 13:00 Diltiazem HCl (Cardizem Iv) 5 mg Q1H PRN IV AFIB GREATER THAN 110 Last administered on 04/17/17 16:41; Admin Dose 5 MG; Start 04/16/17 at 13:00 Enoxaparin Sodium (Lovenox) 40 mg HS SC Last administered on 04/17/17 20:38; Admin Dose 40 MG; Start 04/17/17 at 21:00; Status Future Hold Heparin Sodium (Porcine) (Heparin (5000 Units/0.5 ml)) 5,000 unit BID SC Last administered on 04/27/17 09:42; Admin Dose 5,000 UNIT; Start 04/18/17 at 16:22 Acetaminophen/ Hydrocodone Bitart ([place] (5/325)) 2 tab Q4H PRN NGT MODERATE PAIN LEVEL 4-6 Last administered on 04/24/17 09:21; Admin Dose 2 TAB; Start 04/18/17 at 17:30 Citalopram Hydrobromide (Celexa) 20 mg DAILY NGT Last administered on 09:38; Admin Dose 20 MG; Start 04/19/17 at 09:00 Hydralazine HCl 20 mg 20 mg Q6H PRN IV sbp ABOVE 160 Last administered on 19:03; Admin Dose 20 MG; Start 04/18/17 at 18:30 Caspofungin/ Sodium Chloride (Cancidas/NS) 250 ml @ 250 mls/hr Q24H IV Last administered on 04/27/17 10:52; Admin Dose 250 MLS/HR; Start 04/21/17 at 10:00 Chlorhexidine Gluconate (Peridex) 15 ml BID MT Last administered on 04/27/17 09:35; Admin Dose 15 ML; Start 04/22/17 at 21:00 Vitamin A/Vitamin D (Vitamin A & D Oint) 1 applic TID TOP Last administered on 04/27/17 12:32; Admin Dose 1 APPLIC; Start 04/22/17 at 21:00 Vitamin A/Vitamin D (Vitamin A & D Oint) 1 applic TID PRN TOP DRYNESS Last administered on 04/22/17 15:29; Admin Dose 1 APPLIC; Start 04/22/17 at 15:00 Acetaminophen/ Hydrocodone Bitart ([place] (5/325)) 1 tab Q6H GTB Last administered on 04/27/17 10:47; Admin Dose 1 TAB; Start 04/22/17 at 21:30 Valacyclovir HCl (Valtrex) 500 mg BID PO Last administered on 04/27/17 09:38; Admin Dose 500 MG; Start 04/24/17 at 21:00; Stop 05/01/17 at 21:59 Potassium Chloride (Potassium Chloride Pwd/Soln) 20 meq BID NGT Last administered on 04/26/17 20:46; Admin Dose 20 MEQ; Start 04/25/17 at 21:00 Spironolactone (Aldactone) 25 mg DAILY NGT Last administered on 04/27/17 09:38 ; Admin Dose 25 MG; Start 04/25/17 at 19:00 MARGOT WILLS NP Apr 27, 2017 17:14
[2017-04-28] VITALS (17 sets, daily range): BP systolic 124–170; BP diastolic 48–101; PULSE 71–144; RESP 10–37
[2017-04-28] MEDS: METOCLOPRAMIDE 10 MG INJ IV SCH ×4 (01:17→17:49)
[2017-04-28] MEDS: INSULIN ASPART [NOVOLOG] 3 ML PEN SC SCH ×4 (01:32→17:53)
[2017-04-28] MEDS: HYDROCODONE/APAP (5/325) TAB GTB SCH ×4 (03:42→21:30)
[2017-04-28 05:24] LABS: ADD SCAN DIFF NO
[2017-04-28 05:25] LABS: BASOPHILS % 0.2 % (0.0-2.0); HEMATOCRIT 26.8 % (37.0-47.0); HEMOGLOBIN 8.1 g/dl (12.0-16.0); MEAN CORPUSCULAR HEMOGLOBIN 33.8 pg (29.0-33.0); MEAN CORPUSCULAR HGB CONC 30.2 g/dl (32.0-37.0); MEAN CORPUSCULAR VOLUME 111.7 fl (82.0-101.0); MEAN PLATELET VOLUME 12.1 fl (7.4-10.4); MONOCYTE # 1.5 10^3/ul (0.3-0.9); MONOCYTES % 7.9 % (0.0-11.0); NEUTROPHIL # 15.8 10^3/ul (1.6-7.5); NEUTROPHILS % 83.5 % (39.0-77.0); PLATELET COUNT 414 10^3/UL (140-415); RED CELL DISTRIBUTION WIDTH 14.7 % (11.5-14.5); WHITE BLOOD COUNT 18.9 10^3/ul (4.8-10.8)
[2017-04-28 06:06] LABS: ALBUMIN 2.7 g/dl (3.3-4.9); ALBUMIN/GLOBULIN RATIO 1.17; CALCIUM 8.3 mg/dl (8.4-10.2); CREATININE 1.19 mg/dl (0.44-1.00); MAGNESIUM 2.2 mg/dl (1.7-2.5); PHOSPHORUS 4.5 mg/dl (2.5-4.9); POTASSIUM 4.7 mmol/L (3.5-5.1)
[2017-04-28] MEDS: FUROSEMIDE 40 MG INJ IV SCH ×2 (06:25→17:48)
[2017-04-28] MEDS: LEVOTHYROXINE 75 MCG TAB GTB SCH (06:25)
[2017-04-28] MEDS: metroNIDAZOLE 500 MG TAB NGT SCH ×3 (06:25→21:31)
--- NOTE | 2017-04-28 08:09 | PN ---
Date/Time of Note Date/Time of Note DATE: 04/28/17 TIME: 08:04 Assessment/Plan VTE Prophylaxis VTE Prophylaxis Intervention: other Lines/Catheters [facility] Type [facility] PICC Line Central line still needed: Yes Urinary Cath still in place: Yes Reason Cath still needed: other (indicate) Assessment/Plan Chief Complaint/Hosp Course 1. Status post code arrest -Etiology was respiratory due to hypoxemia -Patient currently stable -Monitor 2. Nonoliguric keyonna. With previously normal baseline creatinine. Etiology is likely secondary to septic KEYONNA with possible ATN -Renal function has been stable, -Continue treatment plan. Supportive care renally dose meds avoid nephrotoxins -Follow-up renal panel - 3. Sepsis, status post shock. Etiology is likely secondary to aspiration pneumonia, fungemia -Patient currently off pressors. Remains on antibiotics, antifungals - Patient's blood cultures have been reviewed. - Continue current treatment plan Follow-up with infectious disease 3. Hypoxemic respiratory failure secondary CHF, pneumonia -Patient status post extubation, currently stable nasal cannula -Continue diuretic therapy -Follow-up with pulmonary 4. Volume overload. Etiology likely secondary to sepsis capillary leak. Possible diastolic heart failure. -Continue Lasix 5. Elevated troponin. Possible non-STEMI type II. We will continue to monitor follow-up with cardiology 6. History of adrenal insufficiency. -Patient currently on stress steroids, -Appreciate endocrinology evaluation 7. Acute encephalopathy etiologies toxic metabolic, possible anoxic injury. Mental status is improving, patient following commands CT scan showed no acute finding Appreciate Dr. Ellis evaluation -Continue to monitor closely 8. Hypernatremia -Patient has a free water deficit of approximately 3 L -Continue free water flushes increased to 300 cc every 4 hours 9. Hypothyroidism continue Synthroid 10. Anemia. -Hemoglobin levels have declined, will repeat H&H level. Consider transfusion 11. Mineral bone disorder will monitor calcium phosphorus levels 12. h/o tongue cancer with resection 13. History of diastolic heart failure/coronary disease -Continue medical management 14. Leukocytosis. -Etiology is likely secondary sepsis, steroids. -Slowly improving as steroids are being weaned down - Follow-up with infectious disease. 15. Hypomagnesemia. Continue to monitor and replete as needed 16. Left upper extremity DVT. Patient's on heparin and aspirin. Continue to monitor 17. Dysphagia status post PEG -Resume tube feedings, if no further episodes of emesis 18. Arrhythmia Status post amiodarone drip Follow-up with cardio 19. possible acute cholecystitis -Patient's HIDA scan was positive - cholecystostomy drain was not placed due to insufficient fluid. -No plan for drain placement at this time. I discussed case with general surgery Appreciate surgery's evaluation. Disposition. Will place a [facility] evaluation I spent greater than 40 minutes of critical care time with this pt Problems: Subjective 24 Hr Interval Summary Free Text/Dictation Patient was extubated 2 days ago. Currently stable on nasal cannula. No other events noted. Patient is diffusely weak. Exam/Review of Systems Vital Signs Vitals Vital Signs Date Time Temp Pulse Resp B/P Pulse Ox O2 Delivery O2 Flow Rate FiO2 04/28/17 07:01 100 3.0 04/28/17 07:00 93 11 140/55 Nasal Cannula 04/28/17 04:00 97.6 04/26/17 13:30 30 Intake and Output 04/27/17 04/27/17 04/28/17 15:00 23:00 07:00 Intake Total 600 ml 130 ml 360 ml Output Total 575 ml 90 ml 950 ml Balance 25 ml 40 ml -590 ml Exam HEENT: Head is normocephalic. NECK: Supple. HEART: Irregular LUNGS: Show diminished breath sounds at base. ABDOMEN: Soft, nontender to palpation without rebound or guarding. EXTREMITIES: Negative for clubbing, cyanosis. Positive edema diffuse anasarca DERMATOLOGIC: No rashes. MUSCULOSKELETAL: No joint effusions, NEUROLOGIC: No change in exam. Results Result Diagram: 04/28/17 0500 04/28/17 0500 Results 24 hrs Laboratory Tests Test 04/27/17 12:31 04/27/17 17:45 04/28/17 01:22 04/28/17 05:00 Bedside Glucose 113 134 143 White Blood Count 18.9 H Red Blood Count 2.40 L Hemoglobin 8.1 L Hematocrit 26.8 L Mean Corpuscular Volume 111.7 H Mean Corpuscular Hemoglobin 33.8 H Mean Corpuscular Hemoglobin Concent 30.2 L Red Cell Distribution Width 14.7 H Platelet Count 414 Mean Platelet Volume 12.1 H Neutrophils % 83.5 H Lymphocytes % 5.0 L Monocytes % 7.9 Eosinophils % 0.0 Basophils % 0.2 Nucleated Red Blood Cells % 0.0 Neutrophils # 15.8 H Lymphocytes # 1.0 Monocytes # 1.5 H Eosinophils # 0.0 Basophils # 0.0 Nucleated Red Blood Cells # 0.0 Sodium Level 153 H Potassium Level 4.7 Chloride Level 114 H Carbon Dioxide Level 31 Anion Gap 13 Blood Urea Nitrogen 74 H Creatinine 1.19 H Glucose Level 136 Calcium Level 8.3 L Phosphorus Level 4.5 Magnesium Level 2.2 Total Bilirubin 0.0 L Direct Bilirubin 0.00 Indirect Bilirubin 0.0 Aspartate Amino Transf (AST/SGOT) 44 Alanine Aminotransferase (ALT/SGPT) 41 Alkaline Phosphatase 110 Total Protein 5.0 L Albumin 2.7 L Globulin 2.30 Albumin/Globulin Ratio 1.17 Test 04/28/17 06:30 Bedside Glucose 159 Medications Medications Current Medications Norepinephrine/ Dextrose (Levophed/D5W) 500 ml @ 0 mls/hr TITRATE IV Last administered on 04/14/17 10:24; Admin Dose 18.75 MLS/HR; Start 04/11/17 at 12:30 Aspirin (Aspirin) 325 mg DAILY NGT Last administered on 04/27/17 09:38; Admin Dose 325 MG; Start 04/12/17 at 09:00 Metoprolol Tartrate (Lopressor) 25 mg BID NGT Last administered on 04/27/17 21 :07; Admin Dose 25 MG; Start 04/11/17 at 21:00 Metoprolol Tartrate (Lopressor) 5 mg Q4H PRN IV HR>110 Hold SBP<110 Last administered on 04/20/17 17:36; Admin Dose 5 MG; Start 04/11/17 at 13:30 Lansoprazole 30 mg 30 mg DAILY GTB Last administered on 04/27/17 09:34; Admin Dose 30 MG; Start 04/12/17 at 09:00 Phenylephrine HCl/ Dextrose ([place]uy-Syneph/D5W) 500 ml @ 0 mls/hr TITRATE IV Last administered on 04/12/17 02:52; Admin Dose 75 MLS/HR; Start 04/11/17 at 16:00 Miscellaneous Information 1 ea NOTE XX ; Start 04/11/17 at 16:30 Glucose (Glutose) 15 gm Q15M PRN PO DECREASED GLUCOSE; Start 04/11/17 at 16:30 Glucose (Glutose) 22.5 gm Q15M PRN PO DECREASED GLUCOSE; Start 04/11/17 at 16: 30 Dextrose (D50w Syringe) 25 ml Q15M PRN IV DECREASED GLUCOSE Last administered on 04/12/17 23:56; Admin Dose 25 ML; Start 04/11/17 at 16:30 Dextrose (D50w Syringe) 50 ml Q15M PRN IV DECREASED GLUCOSE; Start 04/11/17 at 16:30 Glucagon (Glucagen) 1 mg Q15M PRN IM DECREASED GLUCOSE; Start 04/11/17 at 16:30 Glucose 15 gm 15 gm Q15M PRN BUCCAL DECREASED GLUCOSE; Start 04/11/17 at 16:30 Midazolam HCl 50 ml @ 1 mls/hr TITRATE IV Last administered on 04/13/17 04:30; Admin Dose 2 MLS/HR; Start 04/11/17 at 23:30 Fentanyl (Sublimaze) 100 ml @ 0.5 mls/hr TITRATE IV Last administered on 02:48; Admin Dose 0.5 MLS/HR; Start 04/12/17 at 09:30 Metoclopramide HCl (Reglan) 10 mg Q6 IV Last administered on 04/28/17 06:25; Admin Dose 10 MG; Start 04/12/17 at 18:00 Insulin Aspart (Novolog Insulin Pen) NOVOLOG *MILD* ALGORI... Q6H SC Last administered on 04/28/17 06:39; Admin Dose 1 UNIT; Start 04/15/17 at 00:00 Metronidazole (Flagyl) 500 mg Q8 NGT Last administered on 04/28/17 06:25; Admin Dose 500 MG; Start 04/15/17 at 14:00 IV Flush (NS 10 ml) 10 ml PRN PRN IV FLUSH LINE; Start 04/15/17 at 13:00 Hydrocortisone (Solu-Cortef) 25 mg TID IV Last administered on 04/27/17 21:07 ; Admin Dose 25 MG; Start 04/16/17 at 13:00 Amiodarone HCl (Cordarone) 200 mg BID GTB Last administered on 04/27/17 21:07 ; Admin Dose 200 MG; Start 04/16/17 at 13:00 Diltiazem HCl (Cardizem Iv) 5 mg Q1H PRN IV AFIB GREATER THAN 110 Last administered on 04/17/17 16:41; Admin Dose 5 MG; Start 04/16/17 at 13:00 Enoxaparin Sodium (Lovenox) 40 mg HS SC Last administered on 04/17/17 20:38; Admin Dose 40 MG; Start 04/17/17 at 21:00; Status Future Hold Heparin Sodium (Porcine) (Heparin (5000 Units/0.5 ml)) 5,000 unit BID SC Last administered on 04/27/17 21:11; Admin Dose 5,000 UNIT; Start 04/18/17 at 16:22 Acetaminophen/ Hydrocodone Bitart ([place] (5/325)) 2 tab Q4H PRN NGT MODERATE PAIN LEVEL 4-6 Last administered on 04/24/17 09:21; Admin Dose 2 TAB; Start 04/18/17 at 17:30 Citalopram Hydrobromide (Celexa) 20 mg DAILY NGT Last administered on 09:38; Admin Dose 20 MG; Start 04/19/17 at 09:00 Hydralazine HCl 20 mg 20 mg Q6H PRN IV sbp ABOVE 160 Last administered on 19:03; Admin Dose 20 MG; Start 04/18/17 at 18:30 Caspofungin/ Sodium Chloride (Cancidas/NS) 250 ml @ 250 mls/hr Q24H IV Last administered on 04/27/17 10:52; Admin Dose 250 MLS/HR; Start 04/21/17 at 10:00 Chlorhexidine Gluconate (Peridex) 15 ml BID MT Last administered on 04/27/17 21:06; Admin Dose 15 ML; Start 04/22/17 at 21:00 Vitamin A/Vitamin D (Vitamin A & D Oint) 1 applic TID TOP Last administered on 04/27/17 21:06; Admin Dose 1 APPLIC; Start 04/22/17 at 21:00 Vitamin A/Vitamin D (Vitamin A & D Oint) 1 applic TID PRN TOP DRYNESS Last administered on 04/22/17 15:29; Admin Dose 1 APPLIC; Start 04/22/17 at 15:00 Acetaminophen/ Hydrocodone Bitart ([place] (5/325)) 1 tab Q6H GTB Last administered on 04/28/17 03:42; Admin Dose 1 TAB; Start 04/22/17 at 21:30 Valacyclovir HCl (Valtrex) 500 mg BID PO Last administered on 04/27/17 21:06; Admin Dose 500 MG; Start 04/24/17 at 21:00; Stop 05/01/17 at 21:59 Potassium Chloride (Potassium Chloride Pwd/Soln) 20 meq BID NGT Last administered on 04/27/17 21:06; Admin Dose 20 MEQ; Start 04/25/17 at 21:00 Spironolactone (Aldactone) 25 mg DAILY NGT Last administered on 04/27/17 09:38 ; Admin Dose 25 MG; Start 04/25/17 at 19:00 NINA MACIEL DO Apr 28, 2017 08:09
--- NOTE | 2017-04-28 08:41 | PN ---
Date/Time of Note Date/Time of Note DATE: 04/28/17 TIME: 08:26 Assessment/Plan Lines/Catheters IV Catheter Type (from [facility]): PICC Line Latif in Place (from [facility]): Yes Assessment/Plan Chief Complaint/Hosp Course 1. Cholelithiasis ? cholecystitis: Ct abd: sludge and small stones in the gallbladder. No gallbladder wall thickening is noted with some pericholecystic fluid is present. Patient off pressors; GT/OGT no output; HIDA positive; IR drain placement cancelled by radiologist since US without evidence of infection. Therefore, Dr. Guadalupe believes the HIDA is false positive. Tolerating tube feeds; no abdominal pain/discomfort; LFT's nl -No surgical intervention required at this time -will await medical optimization 2. Pneumonia: Recurrent; no fevers; intubated; less secretion sputum cx: PSEUDOMONAS AERUGINOSA, K PNEUMO ESBL, NASRIN GLABRATA; appears comfortable;on nasal canula -pulmonary toilet -abx per ID 3. Vent dependent respiratory failure: 2/2 aspiration PNA+ CHF;reintubated, coded 04/21; extubated -as above 4. Septic shock: improved -on abx -supportive 5. Uncontrolled Afib: s/p amiodarone drip, on oral amiodarone Now SR -medical optimization -lovenox 6. Elevated troponin:NSTEMI; septic shock/demand ischemia -trend 7. Leukocytosis with lactic acidosis: 2/2 pneumonia vs. steroids vs. other ( urine, repeat blood cultures negative);improved -abx -judicious fluid management -supportive measures 8. KEYONNA: likely 2/2 septic shock; s/p code; cr continuing to improve -judicious fluid management -avoid nephrotoxic agents 9. CHF: BNP [id number] -judicious fluid management -medical optimization 10. Adrenal Insufficiency -solucortef 11. Hypomagnesemia: normalized -electrolyte optimization -monitor for cardiac abnormalities 12. Hypothyroidism -cont. synthroid 13. Macrocytic anemia: chronic vs. dilutional vs. acute bleed vs. b12/folate deficiency; h/h stable -monitor -Transfuse as needed 14. Transaminitis: likely 2/2 septic shock vs. cholecystitis; normalized -trend, monitor 15. Diarrhea: 2/2 abx vs. enteritis: resolved; tolerating tf -? probiotics 16. Thrombocytosis: 2/2 inflammatory vs. drug induced vs. other; normalized -monitor -bleeding precautions -supportive 17. Encephalopathy: 2/2 toxic metabolic vs. anoxic injury; CT: No acute intracranial hemorrhage or mass effect. Mild chronic microvascular disease and intracranial atherosclerosis; more alert and communicative; EEG shows no seizure activity -supportive 18. Bilateral upper extremity edema: likely 2/2 decreased movement vs. thrombosis; initial doppler negative, repeat doppler left arm (+) Thrombus -elevate extremities -supportive -anticoagulation 19. Hypoalbuminemia: 2/2 malnutrition +/- inflammation; decreased; tolerating tf ; -nutrition optimization -as above 20 Hypernatremia: minimally improved -judicious fluid management 21. Hypocalcemia: -optimize nutrition Patient seen and examined in collaboration with Dr. Justus Antonio Problems: Subjective 24 Hr Interval Summary Feels well. +bowel function, tolerating tf. Increase secretions. Comfortable on nasal cannula. No abdominal pain. No fevers, chills, n/v/d, sob, cp, palpitations, metzger, dizziness, sz Exam/Review of Systems Vital Signs Vitals Vital Signs Date Time Temp Pulse Resp B/P Pulse Ox O2 Delivery O2 Flow Rate FiO2 04/28/17 07:01 100 3.0 04/28/17 07:00 93 11 140/55 Nasal Cannula 04/28/17 04:00 97.6 04/26/17 13:30 30 Intake and Output 04/27/17 04/27/17 04/28/17 15:00 23:00 07:00 Intake Total 600 ml 130 ml 360 ml Output Total 575 ml 90 ml 950 ml Balance 25 ml 40 ml -590 ml Exam Free Text/Dictation Constitutional: Awake, appears comfortable Head: atraumatic, normocephalic Eyes: PERRL, nl lids, nl sclera ENMT: No mucosa pink and moist (pink and moist), extubated Neck: non-tender, supple Respiratory: rhonchi, comfortable, on nasal canula Cardiovascular: nl pulses, regular rate and rhythm, NSR, Gastrointestinal: soft, GT tubes site no erythema, no drainage, non tenderness, bowel sounds x 4 quads Genitourinary - Female: nl external genitalia Musculoskeletal: nl extremities to inspection Extremities: normal pulses, bilateral upper/lower extremity edema Neurological: responsive Skin: nl turgor, No rash or lesions Lymph: nl lymph nodes Results Result Diagram: 7/17/17 0500 04/28/17 0500 ADDISON FREGOSO NP Apr 28, 2017 08:37
[2017-04-28] MEDS: LANSOPRAZOLE 30 MG CAP GTB SCH (08:45)
[2017-04-28] MEDS: AMIODARONE 200 MG TAB GTB SCH ×2 (08:45→21:20)
[2017-04-28] MEDS: CHLORHEXIDINE GLUCONATE 15 ML UD CUP MT SCH ×2 (08:45→21:20)
[2017-04-28] MEDS: METOPROLOL 25 MG TAB NGT SCH ×2 (08:46→21:20)
[2017-04-28] MEDS: ASPIRIN 325 MG TAB NGT SCH (08:46)
[2017-04-28] MEDS: VALACYCLOVIR 500 MG TAB PO SCH ×2 (08:46→21:21)
[2017-04-28] MEDS: CITALOPRAM 20 MG TAB NGT SCH (08:46)
[2017-04-28] MEDS: SPIRONOLACTONE 25 MG TAB NGT SCH (08:46)
[2017-04-28] MEDS: POTASSIUM CHLORIDE 20 MEQ POWDER FOR ORAL SOLN NGT SCH ×2 (08:47→21:21)
[2017-04-28] MEDS: VITAMIN A & D 5 GM OINT PACKET TOP SCH ×3 (08:47→21:31)
[2017-04-28] MEDS: HYDROCORTISONE 100 MG INJ IV SCH ×2 (08:47→12:42)
[2017-04-28] MEDS: HEPARIN 5,000 UNIT/0.5 ML VIAL SC SCH ×2 (08:55→21:24)
[2017-04-28] MEDS: CASPOFUNGIN 50 MG in NS 250 ML IV SCH (10:18)
--- NOTE | 2017-04-28 11:37 | CONS ---
Date/Time of Note Date/Time of Note DATE: 04/28/17 TIME: 11:35 Consult Date/Type/Reason Admit Date/Time Apr 11, 2017 at 11:28 Initial Consult Date 04/12/17 Type of Consultation: Pulmonary ICU Ordering Provider: NINA MACIEL DO Subjective Patient remains awake alert oriented this morning on nasal cannula oxygen moderate oral secretions poor cough Objective Vital Signs Date Time Temp Pulse Resp B/P Pulse Ox O2 Delivery O2 Flow Rate FiO2 04/28/17 08:00 104 04/28/17 07:01 100 3.0 04/28/17 07:00 11 140/55 Nasal Cannula 04/28/17 04:00 97.6 04/26/17 13:30 30 Intake and Output 04/27/17 04/27/17 04/28/17 15:00 23:00 07:00 Intake Total 600 ml 130 ml 360 ml Output Total 575 ml 90 ml 950 ml Balance 25 ml 40 ml -590 ml Exam GENERAL: Chronically ill-appearing elderly lady on nasal cannula oxygen VITAL SIGNS: per chart NECK: Supple. No JVD or lymphadenopathy. Stoma site has dressing in place CARDIAC EXAM: S1, S2. No added sounds or murmurs. CHEST: Diminished air entry bilaterally poor effort ABDOMEN: Soft, nontender. No guarding or rebound. EXTREMITIES: No cyanosis, clubbing edema +2 NEUROLOGIC: Generalized weakness. Results/Medications Result Diagram: 04/28/17 0500 04/28/17 0500 Results 24 hrs Laboratory Tests Test 04/27/17 12:31 04/27/17 17:45 04/28/17 01:22 04/28/17 05:00 Bedside Glucose 113 134 143 White Blood Count 18.9 H Red Blood Count 2.40 L Hemoglobin 8.1 L Hematocrit 26.8 L Mean Corpuscular Volume 111.7 H Mean Corpuscular Hemoglobin 33.8 H Mean Corpuscular Hemoglobin Concent 30.2 L Red Cell Distribution Width 14.7 H Platelet Count 414 Mean Platelet Volume 12.1 H Neutrophils % 83.5 H Lymphocytes % 5.0 L Monocytes % 7.9 Eosinophils % 0.0 Basophils % 0.2 Nucleated Red Blood Cells % 0.0 Neutrophils # 15.8 H Lymphocytes # 1.0 Monocytes # 1.5 H Eosinophils # 0.0 Basophils # 0.0 Nucleated Red Blood Cells # 0.0 Sodium Level 153 H Potassium Level 4.7 Chloride Level 114 H Carbon Dioxide Level 31 Anion Gap 13 Blood Urea Nitrogen 74 H Creatinine 1.19 H Glucose Level 136 Calcium Level 8.3 L Phosphorus Level 4.5 Magnesium Level 2.2 Total Bilirubin 0.0 L Direct Bilirubin 0.00 Indirect Bilirubin 0.0 Aspartate Amino Transf (AST/SGOT) 44 Alanine Aminotransferase (ALT/SGPT) 41 Alkaline Phosphatase 110 Total Protein 5.0 L Albumin 2.7 L Globulin 2.30 Albumin/Globulin Ratio 1.17 Test 04/28/17 06:30 Bedside Glucose 159 Medications Current Medications Norepinephrine/ Dextrose (Levophed/D5W) 500 ml @ 0 mls/hr TITRATE IV Last administered on 04/14/17 10:24; Admin Dose 18.75 MLS/HR; Start 04/11/17 at 12:30 Aspirin (Aspirin) 325 mg DAILY NGT Last administered on 04/28/17 08:46; Admin Dose 325 MG; Start 04/12/17 at 09:00 Metoprolol Tartrate (Lopressor) 25 mg BID NGT Last administered on 04/28/17 08 :46; Admin Dose 25 MG; Start 04/11/17 at 21:00 Metoprolol Tartrate (Lopressor) 5 mg Q4H PRN IV HR>110 Hold SBP<110 Last administered on 04/20/17 17:36; Admin Dose 5 MG; Start 04/11/17 at 13:30 Lansoprazole 30 mg 30 mg DAILY GTB Last administered on 04/28/17 08:45; Admin Dose 30 MG; Start 04/12/17 at 09:00 Phenylephrine HCl/ Dextrose (Chuy-Syneph/D5W) 500 ml @ 0 mls/hr TITRATE IV Last administered on 04/12/17 02:52; Admin Dose 75 MLS/HR; Start 04/11/17 at 16:00 Miscellaneous Information 1 ea NOTE XX ; Start 04/11/17 at 16:30 Glucose (Glutose) 15 gm Q15M PRN PO DECREASED GLUCOSE; Start 04/11/17 at 16:30 Glucose (Glutose) 22.5 gm Q15M PRN PO DECREASED GLUCOSE; Start 04/11/17 at 16: 30 Dextrose (D50w Syringe) 25 ml Q15M PRN IV DECREASED GLUCOSE Last administered on 04/12/17 23:56; Admin Dose 25 ML; Start 04/11/17 at 16:30 Dextrose (D50w Syringe) 50 ml Q15M PRN IV DECREASED GLUCOSE; Start 04/11/17 at 16:30 Glucagon (Glucagen) 1 mg Q15M PRN IM DECREASED GLUCOSE; Start 04/11/17 at 16:30 Glucose 15 gm 15 gm Q15M PRN BUCCAL DECREASED GLUCOSE; Start 04/11/17 at 16:30 Midazolam HCl 50 ml @ 1 mls/hr TITRATE IV Last administered on 04/13/17 04:30; Admin Dose 2 MLS/HR; Start 04/11/17 at 23:30 Fentanyl (Sublimaze) 100 ml @ 0.5 mls/hr TITRATE IV Last administered on 02:48; Admin Dose 0.5 MLS/HR; Start 04/12/17 at 09:30 Metoclopramide HCl (Reglan) 10 mg Q6 IV Last administered on 04/28/17 06:25; Admin Dose 10 MG; Start 04/12/17 at 18:00 Insulin Aspart (Novolog Insulin Pen) NOVOLOG *MILD* ALGORI... Q6H SC Last administered on 04/28/17 06:39; Admin Dose 1 UNIT; Start 04/15/17 at 00:00 Metronidazole (Flagyl) 500 mg Q8 NGT Last administered on 04/28/17 06:25; Admin Dose 500 MG; Start 04/15/17 at 14:00 IV Flush (NS 10 ml) 10 ml PRN PRN IV FLUSH LINE; Start 04/15/17 at 13:00 Hydrocortisone (Solu-Cortef) 25 mg TID IV Last administered on 04/28/17 08:47 ; Admin Dose 25 MG; Start 04/16/17 at 13:00 Amiodarone HCl (Cordarone) 200 mg BID GTB Last administered on 04/28/17 08:45 ; Admin Dose 200 MG; Start 04/16/17 at 13:00 Diltiazem HCl (Cardizem Iv) 5 mg Q1H PRN IV AFIB GREATER THAN 110 Last administered on 04/17/17 16:41; Admin Dose 5 MG; Start 04/16/17 at 13:00 Enoxaparin Sodium (Lovenox) 40 mg HS SC Last administered on 04/17/17 20:38; Admin Dose 40 MG; Start 04/17/17 at 21:00; Status Future Hold Heparin Sodium (Porcine) (Heparin (5000 Units/0.5 ml)) 5,000 unit BID SC Last administered on 04/28/17 08:55; Admin Dose 5,000 UNIT; Start 04/18/17 at 16:22 Acetaminophen/ Hydrocodone Bitart ([place] (5/325)) 2 tab Q4H PRN NGT MODERATE PAIN LEVEL 4-6 Last administered on 04/24/17 09:21; Admin Dose 2 TAB; Start 04/18/17 at 17:30 Citalopram Hydrobromide (Celexa) 20 mg DAILY NGT Last administered on 08:46; Admin Dose 20 MG; Start 04/19/17 at 09:00 Hydralazine HCl 20 mg 20 mg Q6H PRN IV sbp ABOVE 160 Last administered on 19:03; Admin Dose 20 MG; Start 04/18/17 at 18:30 Caspofungin/ Sodium Chloride (Cancidas/NS) 250 ml @ 250 mls/hr Q24H IV Last administered on 04/28/17 10:18; Admin Dose 250 MLS/HR; Start 04/21/17 at 10:00 Chlorhexidine Gluconate (Peridex) 15 ml BID MT Last administered on 04/28/17 08:45; Admin Dose 15 ML; Start 04/22/17 at 21:00 Vitamin A/Vitamin D (Vitamin A & D Oint) 1 applic TID TOP Last administered on 04/28/17 08:47; Admin Dose 1 APPLIC; Start 04/22/17 at 21:00 Vitamin A/Vitamin D (Vitamin A & D Oint) 1 applic TID PRN TOP DRYNESS Last administered on 04/22/17 15:29; Admin Dose 1 APPLIC; Start 04/22/17 at 15:00 Acetaminophen/ Hydrocodone Bitart ([place] (5/325)) 1 tab Q6H GTB Last administered on 04/28/17 08:58; Admin Dose 1 TAB; Start 04/22/17 at 21:30 Valacyclovir HCl (Valtrex) 500 mg BID PO Last administered on 04/28/17 08:46; Admin Dose 500 MG; Start 04/24/17 at 21:00; Stop 05/01/17 at 21:59 Potassium Chloride (Potassium Chloride Pwd/Soln) 20 meq BID NGT Last administered on 04/28/17 08:47; Admin Dose 20 MEQ; Start 04/25/17 at 21:00 Spironolactone (Aldactone) 25 mg DAILY NGT Last administered on 04/28/17 08:46 ; Admin Dose 25 MG; Start 04/25/17 at 19:00 Assessment/Plan Chief Complaint/Hosp Course IMP: 1. Status post septic Shock--likely due to multilobar aspiration pneumonia vs. HCAP possibly secondary to acute cholecystitis also 2. Multifocal pneumonia aspiration vs.HCAP, persistent leukocytosis chest x-ray shows improved lung aeration 3. Hypercapnic Respiratory Failure--likely due to critical illness now extubated again on nasal cannula 4. Status post lactic acidosis. 5. Demand Ischemia 6. Cholecystitis, not for surgical intervention at present 7. Dysphagia continues tube feeding RECS: 1. Continue pulmonary toilet nasal cannula oxygen 2. Oral care. 3. ABG: Monitor PCO2 4. Resume tube feeding 5. Continue antibiotics 6. Continue physical therapy 7. Surgical recommendations 8. Consider increasing free water. Critical care time 40 minutes. Case d/w RN and patient's Problems: DARWIN CRAWFORD MD, [facility] Apr 28, 2017 11:36
--- NOTE | 2017-04-28 11:49 | CONS ---
Date/Time of Note Date/Time of Note DATE: 04/28/17 TIME: 11:47 Assessment/Plan Assessment/Plan Chief Complaint/Hosp Course No acute changes overnight, patient is sleeping, comfortable on nasal cannula. Temperature 97.6 pulse 90 rotations 11 blood pressure 140/55 saturation 100 on 3 L WBC 11.9 H&H 8.1 and 26.8 platelets 414 neutrophils 83.5 BUN 74 creatinine 1.1 Antibiotics: Cancidas Valtrex indwelling: PEG, Latif, PICC line Repeat blood culture on April 24 negative preliminary. Blood culture on April 20 growing yeast, repeat sputum culture on April 21 growing Ramonita species not albicans and Ramonita glabrata Indwelling's: Endotracheal tube, NG tube, Latif, PICC line placed on April 15 Physical examination: Well-developed fragile chronically ill-appearing elderly woman who is in no distress. Head atraumatic, normocephalic sclera nonicteric. Neck is supple. Chest rise symmetrical breath sounds with scattered rhonchi. Abdomen soft, bowel tones present. Extremities with bilateral edema. Skin: Positive for anasarca Assessment: 1. Fungemia secondary to #2 2. Pneumonia with repeat sputum culture growing yeast 3. Status post septic shock 4. Acute on chronic respiratory failure, status post extubated 5. History of tongue cancer 6. Gallstones, no evidence of cholecystitis 7. History of C. difficile colitis 8. Oral lesions, likely secondary to endotracheal tube, started on empiric Valtrex Plan: Remains stable, continue present care, antibiotics, aspirin precautions, pulmonary recommendations Discussed with staff Problems: Consultation Date/Type/Reason Admit Date/Time Apr 11, 2017 at 11:28 Initial Consult Date 04/12/17 Type of Consultation: ID Referring Provider: NINA MACIEL DO Exam/Review of Systems Vital Signs Vitals Vital Signs Date Time Temp Pulse Resp B/P Pulse Ox O2 Delivery O2 Flow Rate FiO2 04/28/17 08:00 104 04/28/17 07:01 100 3.0 04/28/17 07:00 11 140/55 Nasal Cannula 04/28/17 04:00 97.6 04/26/17 13:30 30 Intake and Output 04/27/17 04/27/17 04/28/17 15:00 23:00 07:00 Intake Total 600 ml 130 ml 360 ml Output Total 575 ml 90 ml 950 ml Balance 25 ml 40 ml -590 ml Results Result Diagram: 04/28/17 0500 04/28/17 0500 Results 24 hrs Laboratory Tests Test 04/27/17 12:31 04/27/17 17:45 04/28/17 01:22 04/28/17 05:00 Bedside Glucose 113 134 143 White Blood Count 18.9 H Red Blood Count 2.40 L Hemoglobin 8.1 L Hematocrit 26.8 L Mean Corpuscular Volume 111.7 H Mean Corpuscular Hemoglobin 33.8 H Mean Corpuscular Hemoglobin Concent 30.2 L Red Cell Distribution Width 14.7 H Platelet Count 414 Mean Platelet Volume 12.1 H Neutrophils % 83.5 H Lymphocytes % 5.0 L Monocytes % 7.9 Eosinophils % 0.0 Basophils % 0.2 Nucleated Red Blood Cells % 0.0 Neutrophils # 15.8 H Lymphocytes # 1.0 Monocytes # 1.5 H Eosinophils # 0.0 Basophils # 0.0 Nucleated Red Blood Cells # 0.0 Sodium Level 153 H Potassium Level 4.7 Chloride Level 114 H Carbon Dioxide Level 31 Anion Gap 13 Blood Urea Nitrogen 74 H Creatinine 1.19 H Glucose Level 136 Calcium Level 8.3 L Phosphorus Level 4.5 Magnesium Level 2.2 Total Bilirubin 0.0 L Direct Bilirubin 0.00 Indirect Bilirubin 0.0 Aspartate Amino Transf (AST/SGOT) 44 Alanine Aminotransferase (ALT/SGPT) 41 Alkaline Phosphatase 110 Total Protein 5.0 L Albumin 2.7 L Globulin 2.30 Albumin/Globulin Ratio 1.17 Test 04/28/17 06:30 Bedside Glucose 159 Medications Medications Current Medications Norepinephrine/ Dextrose (Levophed/D5W) 500 ml @ 0 mls/hr TITRATE IV Last administered on 04/14/17 10:24; Admin Dose 18.75 MLS/HR; Start 04/11/17 at 12:30 Aspirin (Aspirin) 325 mg DAILY NGT Last administered on 04/28/17 08:46; Admin Dose 325 MG; Start 04/12/17 at 09:00 Metoprolol Tartrate (Lopressor) 25 mg BID NGT Last administered on 04/28/17 08 :46; Admin Dose 25 MG; Start 04/11/17 at 21:00 Metoprolol Tartrate (Lopressor) 5 mg Q4H PRN IV HR>110 Hold SBP<110 Last administered on 04/20/17 17:36; Admin Dose 5 MG; Start 04/11/17 at 13:30 Lansoprazole 30 mg 30 mg DAILY GTB Last administered on 04/28/17 08:45; Admin Dose 30 MG; Start 04/12/17 at 09:00 Phenylephrine HCl/ Dextrose ([place]uy-Syneph/D5W) 500 ml @ 0 mls/hr TITRATE IV Last administered on 04/12/17 02:52; Admin Dose 75 MLS/HR; Start 04/11/17 at 16:00 Miscellaneous Information 1 ea NOTE XX ; Start 04/11/17 at 16:30 Glucose (Glutose) 15 gm Q15M PRN PO DECREASED GLUCOSE; Start 04/11/17 at 16:30 Glucose (Glutose) 22.5 gm Q15M PRN PO DECREASED GLUCOSE; Start 04/11/17 at 16: 30 Dextrose (D50w Syringe) 25 ml Q15M PRN IV DECREASED GLUCOSE Last administered on 04/12/17 23:56; Admin Dose 25 ML; Start 04/11/17 at 16:30 Dextrose (D50w Syringe) 50 ml Q15M PRN IV DECREASED GLUCOSE; Start 04/11/17 at 16:30 Glucagon (Glucagen) 1 mg Q15M PRN IM DECREASED GLUCOSE; Start 04/11/17 at 16:30 Glucose 15 gm 15 gm Q15M PRN BUCCAL DECREASED GLUCOSE; Start 04/11/17 at 16:30 Midazolam HCl 50 ml @ 1 mls/hr TITRATE IV Last administered on 04/13/17 04:30; Admin Dose 2 MLS/HR; Start 04/11/17 at 23:30 Fentanyl (Sublimaze) 100 ml @ 0.5 mls/hr TITRATE IV Last administered on 02:48; Admin Dose 0.5 MLS/HR; Start 04/12/17 at 09:30 Metoclopramide HCl (Reglan) 10 mg Q6 IV Last administered on 04/28/17 06:25; Admin Dose 10 MG; Start 04/12/17 at 18:00 Insulin Aspart (Novolog Insulin Pen) NOVOLOG *MILD* ALGORI... Q6H SC Last administered on 04/28/17 06:39; Admin Dose 1 UNIT; Start 04/15/17 at 00:00 Metronidazole (Flagyl) 500 mg Q8 NGT Last administered on 04/28/17 06:25; Admin Dose 500 MG; Start 04/15/17 at 14:00 IV Flush (NS 10 ml) 10 ml PRN PRN IV FLUSH LINE; Start 04/15/17 at 13:00 Hydrocortisone (Solu-Cortef) 25 mg TID IV Last administered on 04/28/17 08:47 ; Admin Dose 25 MG; Start 04/16/17 at 13:00 Amiodarone HCl (Cordarone) 200 mg BID GTB Last administered on 04/28/17 08:45 ; Admin Dose 200 MG; Start 04/16/17 at 13:00 Diltiazem HCl (Cardizem Iv) 5 mg Q1H PRN IV AFIB GREATER THAN 110 Last administered on 04/17/17 16:41; Admin Dose 5 MG; Start 04/16/17 at 13:00 Enoxaparin Sodium (Lovenox) 40 mg HS SC Last administered on 04/17/17 20:38; Admin Dose 40 MG; Start 04/17/17 at 21:00; Status Future Hold Heparin Sodium (Porcine) (Heparin (5000 Units/0.5 ml)) 5,000 unit BID SC Last administered on 04/28/17 08:55; Admin Dose 5,000 UNIT; Start 04/18/17 at 16:22 Acetaminophen/ Hydrocodone Bitart ([place] (5/325)) 2 tab Q4H PRN NGT MODERATE PAIN LEVEL 4-6 Last administered on 04/24/17 09:21; Admin Dose 2 TAB; Start 04/18/17 at 17:30 Citalopram Hydrobromide (Celexa) 20 mg DAILY NGT Last administered on 08:46; Admin Dose 20 MG; Start 04/19/17 at 09:00 Hydralazine HCl 20 mg 20 mg Q6H PRN IV sbp ABOVE 160 Last administered on 19:03; Admin Dose 20 MG; Start 04/18/17 at 18:30 Caspofungin/ Sodium Chloride (Cancidas/NS) 250 ml @ 250 mls/hr Q24H IV Last administered on 04/28/17 10:18; Admin Dose 250 MLS/HR; Start 04/21/17 at 10:00 Chlorhexidine Gluconate (Peridex) 15 ml BID MT Last administered on 04/28/17 08:45; Admin Dose 15 ML; Start 04/22/17 at 21:00 Vitamin A/Vitamin D (Vitamin A & D Oint) 1 applic TID TOP Last administered on 04/28/17 08:47; Admin Dose 1 APPLIC; Start 04/22/17 at 21:00 Vitamin A/Vitamin D (Vitamin A & D Oint) 1 applic TID PRN TOP DRYNESS Last administered on 04/22/17 15:29; Admin Dose 1 APPLIC; Start 04/22/17 at 15:00 Acetaminophen/ Hydrocodone Bitart ([place] (5/325)) 1 tab Q6H GTB Last administered on 04/28/17 08:58; Admin Dose 1 TAB; Start 04/22/17 at 21:30 Valacyclovir HCl (Valtrex) 500 mg BID PO Last administered on 04/28/17 08:46; Admin Dose 500 MG; Start 04/24/17 at 21:00; Stop 05/01/17 at 21:59 Potassium Chloride (Potassium Chloride Pwd/Soln) 20 meq BID NGT Last administered on 04/28/17 08:47; Admin Dose 20 MEQ; Start 04/25/17 at 21:00 Spironolactone (Aldactone) 25 mg DAILY NGT Last administered on 04/28/17 08:46 ; Admin Dose 25 MG; Start 04/25/17 at 19:00 LORETO MCKEON NP Apr 28, 2017 11:49
--- NOTE | 2017-04-28 16:35 | PN ---
Date/Time of Note Date/Time of Note DATE: 04/28/17 TIME: 16:31 Assessment/Plan VTE Prophylaxis VTE Prophylaxis Intervention: SCD's Lines/Catheters IV Catheter Type (from Nrs): PICC Line Central line still needed: Yes Urinary Cath still in place: Yes Reason Cath still needed: other (indicate) Assessment/Plan Chief Complaint/Hosp Course 1. acute on chronic hypoxemic respiratory failure: CURRENTLY EXTUBATED. 2. NSTEMI: due to demand ischemia. 3. CHF/ fluid overload: due to diastolic heart failure 4. moderate 5. Arrhythmia and P afib, frequent PVC: currently stable now 6. ANEMIA 7. pneumonia, severe leukocytosis now. 8. s/p sepsis and shock: off of levophed drip now. cont ASA vent support and abx as per PULM Team. correct lytes prn. cont ICU care. betablocker as long as BP is stable and is able to tolerate it. thyroid supplement . will closely monitor in ICU. s/p amiodarone drip. will cont po amiodarone. cont lasix IV . ALDACTONE Problems: Subjective 24 Hr Interval Summary Free Text/Dictation CARDIOLOGY FOLLOW UP: D/W staff , and rhythm was reviewed. pt remains in NSR . no more Afib overnight. Pt is extubated now but is being monitored closely in ICU no reports of any chest pain or pressure. no reports of any palpitations Objective: General: Intubated on vent in ICU HEENT: NC/AT. . oropharynx with lesions. NECK: NO JVD. no stridor. s/p previous trach with dressing covering it. CV: RRR. systolic ejection murmur; no gallop or rubs. PULM: + diffuse rhonchi. GI: SOFT, NT, ND, no rebound or guarding s/p PEG Extremity: 2+ B/L LE edema. no clubbing. neuro: opens her eye and follows command Psych: calm rectal: deferred Derm: multiple echymosis Exam/Review of Systems Vital Signs Vitals Vital Signs Date Time Temp Pulse Resp B/P Pulse Ox O2 Delivery O2 Flow Rate FiO2 04/28/17 12:00 81 04/28/17 07:01 100 3.0 04/28/17 07:00 11 140/55 Nasal Cannula 04/28/17 04:00 97.6 04/26/17 13:30 30 Intake and Output 04/27/17 04/27/17 04/28/17 15:00 23:00 07:00 Intake Total 600 ml 130 ml 360 ml Output Total 575 ml 90 ml 950 ml Balance 25 ml 40 ml -590 ml Results Result Diagram: 04/28/17 0500 04/28/17 0500 Results 24 hrs Laboratory Tests Test 04/27/17 17:45 04/28/17 01:22 04/28/17 05:00 04/28/17 06:30 Bedside Glucose 134 143 159 White Blood Count 18.9 H Red Blood Count 2.40 L Hemoglobin 8.1 L Hematocrit 26.8 L Mean Corpuscular Volume 111.7 H Mean Corpuscular Hemoglobin 33.8 H Mean Corpuscular Hemoglobin Concent 30.2 L Red Cell Distribution Width 14.7 H Platelet Count 414 Mean Platelet Volume 12.1 H Neutrophils % 83.5 H Lymphocytes % 5.0 L Monocytes % 7.9 Eosinophils % 0.0 Basophils % 0.2 Nucleated Red Blood Cells % 0.0 Neutrophils # 15.8 H Lymphocytes # 1.0 Monocytes # 1.5 H Eosinophils # 0.0 Basophils # 0.0 Nucleated Red Blood Cells # 0.0 Sodium Level 153 H Potassium Level 4.7 Chloride Level 114 H Carbon Dioxide Level 31 Anion Gap 13 Blood Urea Nitrogen 74 H Creatinine 1.19 H Glucose Level 136 Calcium Level 8.3 L Phosphorus Level 4.5 Magnesium Level 2.2 Total Bilirubin 0.0 L Direct Bilirubin 0.00 Indirect Bilirubin 0.0 Aspartate Amino Transf (AST/SGOT) 44 Alanine Aminotransferase (ALT/SGPT) 41 Alkaline Phosphatase 110 Total Protein 5.0 L Albumin 2.7 L Globulin 2.30 Albumin/Globulin Ratio 1.17 Test 04/28/17 12:18 Bedside Glucose 141 Medications Medications Current Medications Norepinephrine/ Dextrose (Levophed/D5W) 500 ml @ 0 mls/hr TITRATE IV Last administered on 04/14/17 10:24; Admin Dose 18.75 MLS/HR; Start 04/11/17 at 12:30 Aspirin (Aspirin) 325 mg DAILY NGT Last administered on 04/28/17 08:46; Admin Dose 325 MG; Start 04/12/17 at 09:00 Metoprolol Tartrate (Lopressor) 25 mg BID NGT Last administered on 04/28/17 08 :46; Admin Dose 25 MG; Start 04/11/17 at 21:00 Metoprolol Tartrate (Lopressor) 5 mg Q4H PRN IV HR>110 Hold SBP<110 Last administered on 04/20/17 17:36; Admin Dose 5 MG; Start 04/11/17 at 13:30 Lansoprazole 30 mg 30 mg DAILY GTB Last administered on 04/28/17 08:45; Admin Dose 30 MG; Start 04/12/17 at 09:00 Phenylephrine HCl/ Dextrose ([place]uy-Syneph/D5W) 500 ml @ 0 mls/hr TITRATE IV Last administered on 04/12/17 02:52; Admin Dose 75 MLS/HR; Start 04/11/17 at 16:00 Miscellaneous Information 1 ea NOTE XX ; Start 04/11/17 at 16:30 Glucose (Glutose) 15 gm Q15M PRN PO DECREASED GLUCOSE; Start 04/11/17 at 16:30 Glucose (Glutose) 22.5 gm Q15M PRN PO DECREASED GLUCOSE; Start 04/11/17 at 16: 30 Dextrose (D50w Syringe) 25 ml Q15M PRN IV DECREASED GLUCOSE Last administered on 04/12/17 23:56; Admin Dose 25 ML; Start 04/11/17 at 16:30 Dextrose (D50w Syringe) 50 ml Q15M PRN IV DECREASED GLUCOSE; Start 04/11/17 at 16:30 Glucagon (Glucagen) 1 mg Q15M PRN IM DECREASED GLUCOSE; Start 04/11/17 at 16:30 Glucose 15 gm 15 gm Q15M PRN BUCCAL DECREASED GLUCOSE; Start 04/11/17 at 16:30 Midazolam HCl 50 ml @ 1 mls/hr TITRATE IV Last administered on 04/13/17 04:30; Admin Dose 2 MLS/HR; Start 04/11/17 at 23:30 Fentanyl (Sublimaze) 100 ml @ 0.5 mls/hr TITRATE IV Last administered on 02:48; Admin Dose 0.5 MLS/HR; Start 04/12/17 at 09:30 Metoclopramide HCl (Reglan) 10 mg Q6 IV Last administered on 04/28/17 12:16; Admin Dose 10 MG; Start 04/12/17 at 18:00 Insulin Aspart (Novolog Insulin Pen) NOVOLOG *MILD* ALGORI... Q6H SC Last administered on 04/28/17 12:25; Admin Dose 1 UNIT; Start 04/15/17 at 00:00 Metronidazole (Flagyl) 500 mg Q8 NGT Last administered on 04/28/17 13:39; Admin Dose 500 MG; Start 04/15/17 at 14:00 IV Flush (NS 10 ml) 10 ml PRN PRN IV FLUSH LINE; Start 04/15/17 at 13:00 Hydrocortisone (Solu-Cortef) 25 mg TID IV Last administered on 04/28/17 12:42 ; Admin Dose 25 MG; Start 04/16/17 at 13:00 Amiodarone HCl (Cordarone) 200 mg BID GTB Last administered on 04/28/17 08:45 ; Admin Dose 200 MG; Start 04/16/17 at 13:00 Diltiazem HCl (Cardizem Iv) 5 mg Q1H PRN IV AFIB GREATER THAN 110 Last administered on 04/17/17 16:41; Admin Dose 5 MG; Start 04/16/17 at 13:00 Enoxaparin Sodium (Lovenox) 40 mg HS SC Last administered on 04/17/17 20:38; Admin Dose 40 MG; Start 04/17/17 at 21:00; Status Future Hold Heparin Sodium (Porcine) (Heparin (5000 Units/0.5 ml)) 5,000 unit BID SC Last administered on 04/28/17 08:55; Admin Dose 5,000 UNIT; Start 04/18/17 at 16:22 Acetaminophen/ Hydrocodone Bitart ([place] (5/325)) 2 tab Q4H PRN NGT MODERATE PAIN LEVEL 4-6 Last administered on 04/24/17 09:21; Admin Dose 2 TAB; Start 04/18/17 at 17:30 Citalopram Hydrobromide (Celexa) 20 mg DAILY NGT Last administered on 08:46; Admin Dose 20 MG; Start 04/19/17 at 09:00 Hydralazine HCl 20 mg 20 mg Q6H PRN IV sbp ABOVE 160 Last administered on 19:03; Admin Dose 20 MG; Start 04/18/17 at 18:30 Caspofungin/ Sodium Chloride (Cancidas/NS) 250 ml @ 250 mls/hr Q24H IV Last administered on 04/28/17 10:18; Admin Dose 250 MLS/HR; Start 04/21/17 at 10:00 Chlorhexidine Gluconate (Peridex) 15 ml BID MT Last administered on 04/28/17 08:45; Admin Dose 15 ML; Start 04/22/17 at 21:00 Vitamin A/Vitamin D (Vitamin A & D Oint) 1 applic TID TOP Last administered on 04/28/17 12:42; Admin Dose 1 APPLIC; Start 04/22/17 at 21:00 Vitamin A/Vitamin D (Vitamin A & D Oint) 1 applic TID PRN TOP DRYNESS Last administered on 04/22/17 15:29; Admin Dose 1 APPLIC; Start 04/22/17 at 15:00 Acetaminophen/ Hydrocodone Bitart ([place] (5/325)) 1 tab Q6H GTB Last administered on 04/28/17 15:18; Admin Dose 1 TAB; Start 04/22/17 at 21:30 Valacyclovir HCl (Valtrex) 500 mg BID PO Last administered on 04/28/17 08:46; Admin Dose 500 MG; Start 04/24/17 at 21:00; Stop 05/01/17 at 21:59 Potassium Chloride (Potassium Chloride Pwd/Soln) 20 meq BID NGT Last administered on 04/28/17 08:47; Admin Dose 20 MEQ; Start 04/25/17 at 21:00 Spironolactone (Aldactone) 25 mg DAILY NGT Last administered on 04/28/17 08:46 ; Admin Dose 25 MG; Start 04/25/17 at 19:00 FRANCISCO BLACKWOOD MD Apr 28, 2017 16:34
--- NOTE | 2017-04-28 21:21 | CONS ---
Date/Time of Note Date/Time of Note DATE: 04/28/17 TIME: 21:17 Assessment/Plan Assessment/Plan Problems: (1) Steroid dependence Status: Chronic Comment: Pt. now extubated although still profoundly ill. However, BP elevated and pt. awake and alert. Will reduce hydrocortisone to 25 mg IV bid and reevaluate in 2-3 days to see if pt. can tolerate another reduction. Consultation Date/Type/Reason Admit Date/Time Apr 11, 2017 at 11:28 Initial Consult Date 04/14/17 Type of Consultation: Endocrinology Reason for Consultation steroid dependence Referring Provider: NINA MACIEL DO 24 HR Interval Summary Subjective hx not possible: pt non-verbal Exam/Review of Systems Vital Signs Vitals VS - Last 72 Hours, by Label Date Time Temp Pulse Resp B/P Pulse Ox O2 Delivery O2 Flow Rate FiO2 04/28/17 20:53 3.0 04/28/17 20:31 Nasal Cannula 3.0 04/28/17 20:00 98.0 94 18 166/61 100 Nasal Cannula 3.0 04/28/17 20:00 95 04/28/17 19:00 92 17 170/64 100 Nasal Cannula 3.0 04/28/17 16:00 86 04/28/17 12:00 81 04/28/17 08:00 104 04/28/17 07:01 100 3.0 04/28/17 07:00 93 11 140/55 100 Nasal Cannula 3.0 04/28/17 06:00 87 18 138/48 100 Nasal Cannula 3.0 04/28/17 05:00 88 14 135/50 100 Nasal Cannula 3.0 04/28/17 04:10 Nasal Cannula 3.0 04/28/17 04:00 96 04/28/17 04:00 97.6 90 10 154/54 100 Nasal Cannula 3.0 04/28/17 03:00 71 25 138/54 100 Nasal Cannula 3.0 04/28/17 02:00 83 18 155/62 100 Nasal Cannula 3.0 04/28/17 01:00 83 17 152/70 100 04/28/17 00:05 3.0 04/28/17 00:00 97.5 87 18 135/64 99 Nasal Cannula 3.0 04/28/17 00:00 85 04/27/17 23:00 77 11 127/85 100 Nasal Cannula 04/27/17 22:00 93 8 136/64 100 Nasal Cannula 04/27/17 21:00 97.5 98 16 130/58 100 Nasal Cannula 04/27/17 20:02 100 2.0 04/27/17 20:00 96 04/27/17 20:00 88 16 143/59 100 Nasal Cannula 04/27/17 20:00 Nasal Cannula 2.0 04/27/17 19:00 81 11 145/58 100 Nasal Cannula 04/27/17 18:00 83 7 160/71 100 Nasal Cannula 04/27/17 17:51 2.0 04/27/17 17:00 84 15 159/72 100 Nasal Cannula 04/27/17 16:00 72 04/27/17 16:00 97.0 72 16 151/60 100 Nasal Cannula 04/27/17 15:00 70 16 159/57 100 Nasal Cannula 04/27/17 14:00 69 10 160/72 100 Nasal Cannula 04/27/17 13:00 64 15 152/64 100 Nasal Cannula 04/27/17 12:00 62 04/27/17 12:00 96.7 64 15 142/64 97 Nasal Cannula 04/27/17 12:00 Nasal Cannula 2.0 04/27/17 11:00 64 17 143/60 96 Nasal Cannula 04/27/17 10:00 85 19 163/73 100 Nasal Cannula 04/27/17 09:00 90 19 154/65 100 Nasal Cannula 04/27/17 08:00 81 04/27/17 08:00 96.1 79 18 156/66 100 Nasal Cannula 04/27/17 07:00 84 20 153/76 100 Nasal Cannula 04/27/17 06:00 82 21 146/75 100 Nasal Cannula 04/27/17 05:00 77 19 142/59 100 Nasal Cannula 04/27/17 04:00 96.0 82 21 145/62 100 Nasal Cannula 04/27/17 04:00 75 04/27/17 03:00 83 22 151/66 99 Nasal Cannula 04/27/17 02:00 85 16 146/69 99 Nasal Cannula 04/27/17 01:00 85 22 138/70 98 Nasal Cannula 04/27/17 00:05 88 24 96 Nasal Cannula 3.0 04/27/17 00:00 96.0 81 22 129/65 99 Nasal Cannula 04/27/17 00:00 75 04/26/17 23:00 75 22 131/48 100 Nasal Cannula 04/26/17 22:00 83 21 133/73 100 Nasal Cannula 04/26/17 21:00 99 22 128/64 100 Nasal Cannula 04/26/17 20:33 95 2.0 04/26/17 20:00 95 04/26/17 20:00 97.0 96 16 149/66 94 Nasal Cannula 2.0 04/26/17 19:15 3.0 04/26/17 19:00 85 13 194/76 96 Nasal Cannula 2.0 04/26/17 18:00 84 18 195/73 97 Nasal Cannula 2.0 04/26/17 17:00 83 19 159/83 95 Nasal Cannula 2.0 04/26/17 16:00 96.1 71 13 144/76 100 Nasal Cannula 2.0 04/26/17 16:00 74 04/26/17 15:00 20 156/83 97 Nasal Cannula 2.0 04/26/17 14:00 75 20 146/75 96 Nasal Cannula 2.0 04/26/17 13:30 78 22 95 30 04/26/17 13:00 75 21 148/76 99 Mechanical Ventilator 04/26/17 12:00 70 04/26/17 12:00 96.7 69 13 147/71 98 Mechanical Ventilator 04/26/17 11:30 77 23 96 30 04/26/17 11:00 68 18 130/70 99 Mechanical Ventilator 04/26/17 10:20 30 04/26/17 10:00 79 23 139/74 100 Mechanical Ventilator 04/26/17 09:30 81 17 100 30 04/26/17 09:00 84 19 158/80 100 Mechanical Ventilator 04/26/17 08:00 96.9 94 20 166/82 100 Mechanical Ventilator 04/26/17 08:00 91 04/26/17 08:00 30 04/26/17 07:30 81 17 100 30 04/26/17 07:00 80 17 125/73 100 Mechanical Ventilator 04/26/17 06:00 88 19 135/68 100 Mechanical Ventilator 04/26/17 05:05 77 15 100 30 04/26/17 05:00 74 13 120/63 100 Mechanical Ventilator 04/26/17 04:00 85 04/26/17 04:00 97.5 88 17 145/77 100 Mechanical Ventilator 04/26/17 03:25 74 14 100 30 04/26/17 03:00 89 19 149/79 99 Mechanical Ventilator 04/26/17 02:00 77 18 132/67 100 Mechanical Ventilator 04/26/17 01:50 77 18 100 30 04/26/17 01:00 76 18 128/59 100 Mechanical Ventilator 04/26/17 00:00 82 04/26/17 00:00 98.2 82 12 131/69 100 Mechanical Ventilator 04/25/17 23:30 80 16 100 30 04/25/17 23:00 76 12 117/59 100 Mechanical Ventilator 04/25/17 22:00 79 20 151/76 100 Mechanical Ventilator Vital Signs Date Time Temp Pulse Resp B/P Pulse Ox O2 Delivery O2 Flow Rate FiO2 04/28/17 20:53 3.0 04/28/17 20:31 Nasal Cannula 04/28/17 20:00 98.0 94 18 166/61 100 04/26/17 13:30 30 Intake and Output 04/27/17 04/27/17 04/28/17 15:00 23:00 07:00 Intake Total 600 ml 130 ml 360 ml Output Total 575 ml 90 ml 950 ml Balance 25 ml 40 ml -590 ml Exam Constitutional: alert, frail, other (profoundly debilitated) ENMT: No intubated, No nl lips & teeth (swelling and skin breakdown noted) Respiratory: crackles/rales, wheezing Cardiovascular: edema (1+ diffusely), murmurs/extra sounds (grade 2/6 ZACK), No regular rate and rhythm (tachycardia), No rub Gastrointestinal: bowel sounds, nl liver, spleen, non-tender, soft, No mass, No rebound or guarding Musculoskeletal: nl extremities to inspection Extremities: edema (1+ diffusely), normal pulses, No clubbing, No cyanosis Neurological: SEWING MACHINE BOBBIN WINDER II-XII intact, No nl speech (unintelligable) Results Result Diagram: 04/28/17 0500 04/28/17 0500 Results 24 hrs Laboratory Tests Test 04/28/17 01:22 04/28/17 05:00 04/28/17 06:30 04/28/17 12:18 Bedside Glucose 143 159 141 White Blood Count 18.9 H Red Blood Count 2.40 L Hemoglobin 8.1 L Hematocrit 26.8 L Mean Corpuscular Volume 111.7 H Mean Corpuscular Hemoglobin 33.8 H Mean Corpuscular Hemoglobin Concent 30.2 L Red Cell Distribution Width 14.7 H Platelet Count 414 Mean Platelet Volume 12.1 H Neutrophils % 83.5 H Lymphocytes % 5.0 L Monocytes % 7.9 Eosinophils % 0.0 Basophils % 0.2 Nucleated Red Blood Cells % 0.0 Neutrophils # 15.8 H Lymphocytes # 1.0 Monocytes # 1.5 H Eosinophils # 0.0 Basophils # 0.0 Nucleated Red Blood Cells # 0.0 Sodium Level 153 H Potassium Level 4.7 Chloride Level 114 H Carbon Dioxide Level 31 Anion Gap 13 Blood Urea Nitrogen 74 H Creatinine 1.19 H Glucose Level 136 Calcium Level 8.3 L Phosphorus Level 4.5 Magnesium Level 2.2 Total Bilirubin 0.0 L Direct Bilirubin 0.00 Indirect Bilirubin 0.0 Aspartate Amino Transf (AST/SGOT) 44 Alanine Aminotransferase (ALT/SGPT) 41 Alkaline Phosphatase 110 Total Protein 5.0 L Albumin 2.7 L Globulin 2.30 Albumin/Globulin Ratio 1.17 Test 04/28/17 17:44 Bedside Glucose 165 Medications Medications Current Medications Norepinephrine/ Dextrose (Levophed/D5W) 500 ml @ 0 mls/hr TITRATE IV Last administered on 04/14/17 10:24; Admin Dose 18.75 MLS/HR; Start 04/11/17 at 12:30 Aspirin (Aspirin) 325 mg DAILY NGT Last administered on 04/28/17 08:46; Admin Dose 325 MG; Start 04/12/17 at 09:00 Metoprolol Tartrate (Lopressor) 25 mg BID NGT Last administered on 04/28/17 08 :46; Admin Dose 25 MG; Start 04/11/17 at 21:00 Metoprolol Tartrate (Lopressor) 5 mg Q4H PRN IV HR>110 Hold SBP<110 Last administered on 04/20/17 17:36; Admin Dose 5 MG; Start 04/11/17 at 13:30 Lansoprazole 30 mg 30 mg DAILY GTB Last administered on 04/28/17 08:45; Admin Dose 30 MG; Start 04/12/17 at 09:00 Phenylephrine HCl/ Dextrose ([place]-Syneph/D5W) 500 ml @ 0 mls/hr TITRATE IV Last administered on 04/12/17 02:52; Admin Dose 75 MLS/HR; Start 04/11/17 at 16:00 Miscellaneous Information 1 ea NOTE XX ; Start 04/11/17 at 16:30 Glucose (Glutose) 15 gm Q15M PRN PO DECREASED GLUCOSE; Start 04/11/17 at 16:30 Glucose (Glutose) 22.5 gm Q15M PRN PO DECREASED GLUCOSE; Start 04/11/17 at 16: 30 Dextrose (D50w Syringe) 25 ml Q15M PRN IV DECREASED GLUCOSE Last administered on 04/12/17 23:56; Admin Dose 25 ML; Start 04/11/17 at 16:30 Dextrose (D50w Syringe) 50 ml Q15M PRN IV DECREASED GLUCOSE; Start 04/11/17 at 16:30 Glucagon (Glucagen) 1 mg Q15M PRN IM DECREASED GLUCOSE; Start 04/11/17 at 16:30 Glucose 15 gm 15 gm Q15M PRN BUCCAL DECREASED GLUCOSE; Start 04/11/17 at 16:30 Midazolam HCl 50 ml @ 1 mls/hr TITRATE IV Last administered on 04/13/17 04:30; Admin Dose 2 MLS/HR; Start 04/11/17 at 23:30 Fentanyl (Sublimaze) 100 ml @ 0.5 mls/hr TITRATE IV Last administered on 02:48; Admin Dose 0.5 MLS/HR; Start 04/12/17 at 09:30 Metoclopramide HCl (Reglan) 10 mg Q6 IV Last administered on 04/28/17 17:49; Admin Dose 10 MG; Start 04/12/17 at 18:00 Insulin Aspart (Novolog Insulin Pen) NOVOLOG *MILD* [place]I... Q6H SC Last administered on 04/28/17 17:53; Admin Dose 1 UNIT; Start 04/15/17 at 00:00 Metronidazole (Flagyl) 500 mg Q8 NGT Last administered on 04/28/17 13:39; Admin Dose 500 MG; Start 04/15/17 at 14:00 IV Flush (NS 10 ml) 10 ml PRN PRN IV FLUSH LINE; Start 04/15/17 at 13:00 Amiodarone HCl (Cordarone) 200 mg BID GTB Last administered on 04/28/17 08:45 ; Admin Dose 200 MG; Start 04/16/17 at 13:00 Diltiazem HCl (Cardizem Iv) 5 mg Q1H PRN IV AFIB GREATER THAN 110 Last administered on 04/17/17 16:41; Admin Dose 5 MG; Start 04/16/17 at 13:00 Enoxaparin Sodium (Lovenox) 40 mg HS SC Last administered on 04/17/17 20:38; Admin Dose 40 MG; Start 04/17/17 at 21:00; Status Future Hold Heparin Sodium (Porcine) (Heparin (5000 Units/0.5 ml)) 5,000 unit BID SC Last administered on 04/28/17 08:55; Admin Dose 5,000 UNIT; Start 04/18/17 at 16:22 Acetaminophen/ Hydrocodone Bitart ([place] (5/325)) 2 tab Q4H PRN NGT MODERATE PAIN LEVEL 4-6 Last administered on 04/24/17 09:21; Admin Dose 2 TAB; Start 04/18/17 at 17:30 Citalopram Hydrobromide (Celexa) 20 mg DAILY NGT Last administered on 08:46; Admin Dose 20 MG; Start 04/19/17 at 09:00 Hydralazine HCl 20 mg 20 mg Q6H PRN IV sbp ABOVE 160 Last administered on 19:03; Admin Dose 20 MG; Start 04/18/17 at 18:30 Caspofungin/ Sodium Chloride ([place]/NS) 250 ml @ 250 mls/hr Q24H IV Last administered on 04/28/17 10:18; Admin Dose 250 MLS/HR; Start 04/21/17 at 10:00 Chlorhexidine Gluconate (Peridex) 15 ml BID MT Last administered on 04/28/17 08:45; Admin Dose 15 ML; Start 04/22/17 at 21:00 Vitamin A/Vitamin D (Vitamin A & D Oint) 1 applic TID TOP Last administered on 04/28/17 12:42; Admin Dose 1 APPLIC; Start 04/22/17 at 21:00 Vitamin A/Vitamin D (Vitamin A & D Oint) 1 applic TID PRN TOP DRYNESS Last administered on 04/22/17 15:29; Admin Dose 1 APPLIC; Start 04/22/17 at 15:00 Acetaminophen/ Hydrocodone Bitart ([place] (5/325)) 1 tab Q6H GTB Last administered on 04/28/17 15:18; Admin Dose 1 TAB; Start 04/22/17 at 21:30 Valacyclovir HCl (Valtrex) 500 mg BID PO Last administered on 04/28/17 08:46; Admin Dose 500 MG; Start 04/24/17 at 21:00; Stop 05/01/17 at 21:59 Potassium Chloride (Potassium Chloride Pwd/Soln) 20 meq BID NGT Last administered on 04/28/17 08:47; Admin Dose 20 MEQ; Start 04/25/17 at 21:00 Spironolactone (Aldactone) 25 mg DAILY NGT Last administered on 04/28/17 08:46 ; Admin Dose 25 MG; Start 04/25/17 at 19:00 Hydrocortisone (Solu-Cortef) 25 mg BID IV ; Start 04/29/17 at 09:00; Status JEAN KENDALL MD Apr 28, 2017 21:21
[2017-04-28] MEDS: HYDROCODONE/APAP (5/325) TAB NGT PRN (21:36)
[2017-04-29] VITALS (23 sets, daily range): BP systolic 117–173; BP diastolic 56–142; PULSE 74–137; RESP 7–33
[2017-04-29] MEDS: METOCLOPRAMIDE 10 MG INJ IV SCH ×4 (00:49→17:23)
[2017-04-29] MEDS: INSULIN ASPART [NOVOLOG] 3 ML PEN SC SCH ×4 (00:53→17:41)
[2017-04-29] MEDS: HYDROCODONE/APAP (5/325) TAB GTB SCH ×4 (04:23→20:53)
[2017-04-29 04:52] LABS: ADD SCAN DIFF NO
[2017-04-29 04:54] LABS: BASOPHILS % 0.2 % (0.0-2.0); HEMATOCRIT 28.1 % (37.0-47.0); HEMOGLOBIN 8.4 g/dl (12.0-16.0); LYMPHOCYTES # 0.9 10^3/ul (0.8-2.9); LYMPHOCYTES % 4.4 % (15.0-51.0); MEAN CORPUSCULAR HEMOGLOBIN 34.3 pg (29.0-33.0); MEAN CORPUSCULAR HGB CONC 29.9 g/dl (32.0-37.0); MEAN CORPUSCULAR VOLUME 114.7 fl (82.0-101.0); MEAN PLATELET VOLUME 12.3 fl (7.4-10.4); MONOCYTE # 1.1 10^3/ul (0.3-0.9); MONOCYTES % 5.3 % (0.0-11.0); NEUTROPHIL # 18.4 10^3/ul (1.6-7.5); NUCLEATED RED BLOOD CELLS% 0.1 /100WBC (0.0-0.0); PLATELET COUNT 435 10^3/UL (140-415); RED BLOOD COUNT 2.45 10^6/ul (4.20-5.40); RED CELL DISTRIBUTION WIDTH 14.9 % (11.5-14.5); WHITE BLOOD COUNT 21.1 10^3/ul (4.8-10.8)
[2017-04-29] MEDS: FUROSEMIDE 40 MG INJ IV SCH ×2 (05:18→17:23)
[2017-04-29] MEDS: DILTIAZEM 25 MG INJ IV PRN ×2 (05:18→06:17)
[2017-04-29] MEDS: metroNIDAZOLE 500 MG TAB NGT SCH ×3 (05:19→21:00)
[2017-04-29 05:20] LABS: CALCIUM 8.6 mg/dl (8.4-10.2); CREATININE 1.14 mg/dl (0.44-1.00); MAGNESIUM 2.3 mg/dl (1.7-2.5); PHOSPHORUS 4.4 mg/dl (2.5-4.9)
[2017-04-29] MEDS: LEVOTHYROXINE 75 MCG TAB GTB SCH (06:18)
--- NOTE | 2017-04-29 07:11 | PN ---
Date/Time of Note Date/Time of Note DATE: 04/29/17 TIME: 07:09 Assessment/Plan VTE Prophylaxis VTE Prophylaxis Intervention: heparin Lines/Catheters IV Catheter Type (from Nrs): PICC Line Central line still needed: Yes Urinary Cath still in place: Yes Reason Cath still needed: other (indicate) Assessment/Plan Chief Complaint/Hosp Course 1. acute on chronic hypoxemic respiratory failure: CURRENTLY EXTUBATED. 2. NSTEMI: due to demand ischemia. 3. CHF/ fluid overload: due to diastolic heart failure 4. moderate 5. Arrhythmia and P afib, frequent PVC: 6. ANEMIA 7. pneumonia, severe leukocytosis now. 8. s/p sepsis and shock: off of levophed drip now. cont ASA resp care as per PULM Team. correct lytes prn. will dc kcl and give K prn. cont ICU care. betablocker as long as BP is stable and is able to tolerate it. thyroid supplement . will closely monitor in ICU. will start amiodarone drip again. will cont po amiodarone. cont lasix IV . ALDACTONE Problems: Subjective 24 Hr Interval Summary Free Text/Dictation CARDIOLOGY FOLLOW UP: D/W staff , and rhythm was reviewed. pt converted to Afib with RVR overnight. Pt is extubated now but is being monitored closely in ICU no reports of any chest pain or pressure. no reports of any palpitations Objective: General: Extubated but in resp distress HEENT: NC/AT. . oropharynx with lesions. NECK: NO JVD. no stridor. s/p previous trach with dressing covering it. CV: irregularly irregular. systolic ejection murmur; no gallop or rubs. PULM: + diffuse rhonchi. GI: SOFT, NT, ND, no rebound or guarding s/p PEG Extremity: 2+ B/L LE edema. no clubbing. neuro: opens her eye and follows command Psych: calm rectal: deferred Derm: multiple echymosis Exam/Review of Systems Vital Signs Vitals Vital Signs Date Time Temp Pulse Resp B/P Pulse Ox O2 Delivery O2 Flow Rate FiO2 04/29/17 07:00 131 18 136/93 100 04/29/17 04:00 97.9 04/29/17 01:00 Nasal Cannula 3.0 04/26/17 13:30 30 Intake and Output 04/28/17 04/28/17 04/29/17 15:00 23:00 07:00 Intake Total 200 ml 750 ml Output Total 200 ml 340 ml Balance 0 ml 410 ml Results Result Diagram: 04/29/17 0430 04/29/17 0430 Results 24 hrs Laboratory Tests Test 04/28/17 12:18 04/28/17 17:44 04/29/17 00:48 04/29/17 04:30 Bedside Glucose 141 165 186 White Blood Count 21.1 H Red Blood Count 2.45 L Hemoglobin 8.4 L Hematocrit 28.1 L Mean Corpuscular Volume 114.7 H Mean Corpuscular Hemoglobin 34.3 H Mean Corpuscular Hemoglobin Concent 29.9 L Red Cell Distribution Width 14.9 H Platelet Count 435 H Mean Platelet Volume 12.3 H Neutrophils % 87.0 H Lymphocytes % 4.4 L Monocytes % 5.3 Eosinophils % 0.0 Basophils % 0.2 Nucleated Red Blood Cells % 0.1 H Neutrophils # 18.4 H Lymphocytes # 0.9 Monocytes # 1.1 H Eosinophils # 0.0 Basophils # 0.0 Nucleated Red Blood Cells # 0.0 Sodium Level 150 H Potassium Level 5.0 Chloride Level 110 Carbon Dioxide Level 32 H Anion Gap 13 Blood Urea Nitrogen 80 H Creatinine 1.14 H Glucose Level 161 Calcium Level 8.6 Phosphorus Level 4.4 Magnesium Level 2.3 Test 04/29/17 05:29 Bedside Glucose 148 Medications Medications Current Medications Norepinephrine/ Dextrose (Levophed/D5W) 500 ml @ 0 mls/hr TITRATE IV Last administered on 04/14/17 10:24; Admin Dose 18.75 MLS/HR; Start 04/11/17 at 12:30 Aspirin (Aspirin) 325 mg DAILY NGT Last administered on 04/28/17 08:46; Admin Dose 325 MG; Start 04/12/17 at 09:00 Metoprolol Tartrate (Lopressor) 25 mg BID NGT Last administered on 04/28/17 21 :20; Admin Dose 25 MG; Start 04/11/17 at 21:00 Metoprolol Tartrate (Lopressor) 5 mg Q4H PRN IV HR>110 Hold SBP<110 Last administered on 04/20/17 17:36; Admin Dose 5 MG; Start 04/11/17 at 13:30 Lansoprazole 30 mg 30 mg DAILY GTB Last administered on 04/28/17 08:45; Admin Dose 30 MG; Start 04/12/17 at 09:00 Phenylephrine HCl/ Dextrose ([place]-Syneph/D5W) 500 ml @ 0 mls/hr TITRATE IV Last administered on 04/12/17 02:52; Admin Dose 75 MLS/HR; Start 04/11/17 at 16:00 Miscellaneous Information 1 ea NOTE XX ; Start 04/11/17 at 16:30 Glucose (Glutose) 15 gm Q15M PRN PO DECREASED GLUCOSE; Start 04/11/17 at 16:30 Glucose (Glutose) 22.5 gm Q15M PRN PO DECREASED GLUCOSE; Start 04/11/17 at 16: 30 Dextrose (D50w Syringe) 25 ml Q15M PRN IV DECREASED GLUCOSE Last administered on 04/12/17 23:56; Admin Dose 25 ML; Start 04/11/17 at 16:30 Dextrose (D50w Syringe) 50 ml Q15M PRN IV DECREASED GLUCOSE; Start 04/11/17 at 16:30 Glucagon (Glucagen) 1 mg Q15M PRN IM DECREASED GLUCOSE; Start 04/11/17 at 16:30 Glucose 15 gm 15 gm Q15M PRN BUCCAL DECREASED GLUCOSE; Start 04/11/17 at 16:30 Midazolam HCl 50 ml @ 1 mls/hr TITRATE IV Last administered on 04/13/17 04:30; Admin Dose 2 MLS/HR; Start 04/11/17 at 23:30 Fentanyl (Sublimaze) 100 ml @ 0.5 mls/hr TITRATE IV Last administered on 02:48; Admin Dose 0.5 MLS/HR; Start 04/12/17 at 09:30 Metoclopramide HCl (Reglan) 10 mg Q6 IV Last administered on 04/29/17 05:27; Admin Dose 10 MG; Start 04/12/17 at 18:00 Insulin Aspart (Novolog Insulin Pen) NOVOLOG *MILD* ALGORI... Q6H SC Last administered on 04/29/17 05:33; Admin Dose 1 UNIT; Start 04/15/17 at 00:00 Metronidazole (Flagyl) 500 mg Q8 NGT Last administered on 04/29/17 05:19; Admin Dose 500 MG; Start 04/15/17 at 14:00 IV Flush (NS 10 ml) 10 ml PRN PRN IV FLUSH LINE; Start 04/15/17 at 13:00 Amiodarone HCl (Cordarone) 200 mg BID GTB Last administered on 04/28/17 21:20 ; Admin Dose 200 MG; Start 04/16/17 at 13:00 Enoxaparin Sodium (Lovenox) 40 mg HS SC Last administered on 04/17/17 20:38; Admin Dose 40 MG; Start 04/17/17 at 21:00; Status Future Hold Heparin Sodium (Porcine) (Heparin (5000 Units/0.5 ml)) 5,000 unit BID SC Last administered on 04/28/17 21:24; Admin Dose 5,000 UNIT; Start 04/18/17 at 16:22 Acetaminophen/ Hydrocodone Bitart ([place] (5/325)) 2 tab Q4H PRN NGT MODERATE PAIN LEVEL 4-6 Last administered on 04/28/17 21:36; Admin Dose 2 TAB; Start 04/18/17 at 17:30 Citalopram Hydrobromide (Celexa) 20 mg DAILY NGT Last administered on 08:46; Admin Dose 20 MG; Start 04/19/17 at 09:00 Hydralazine HCl 20 mg 20 mg Q6H PRN IV sbp ABOVE 160 Last administered on 19:03; Admin Dose 20 MG; Start 04/18/17 at 18:30 Caspofungin/ Sodium Chloride (Cancidas/NS) 250 ml @ 250 mls/hr Q24H IV Last administered on 04/28/17 10:18; Admin Dose 250 MLS/HR; Start 04/21/17 at 10:00 Chlorhexidine Gluconate (Peridex) 15 ml BID MT Last administered on 04/28/17 21:20; Admin Dose 15 ML; Start 04/22/17 at 21:00 Vitamin A/Vitamin D (Vitamin A & D Oint) 1 applic TID TOP Last administered on 04/28/17 21:31; Admin Dose 1 APPLIC; Start 04/22/17 at 21:00 Vitamin A/Vitamin D (Vitamin A & D Oint) 1 applic TID PRN TOP DRYNESS Last administered on 04/22/17 15:29; Admin Dose 1 APPLIC; Start 04/22/17 at 15:00 Acetaminophen/ Hydrocodone Bitart ([place] (5/325)) 1 tab Q6H GTB Last administered on 04/29/17 04:23; Admin Dose 1 TAB; Start 04/22/17 at 21:30 Valacyclovir HCl (Valtrex) 500 mg BID PO Last administered on 04/28/17 21:21; Admin Dose 500 MG; Start 04/24/17 at 21:00; Stop 05/01/17 at 21:59 Potassium Chloride (Potassium Chloride Pwd/Soln) 20 meq BID NGT Last administered on 04/28/17 21:21; Admin Dose 20 MEQ; Start 04/25/17 at 21:00 Spironolactone (Aldactone) 25 mg DAILY NGT Last administered on 04/28/17 08:46 ; Admin Dose 25 MG; Start 04/25/17 at 19:00 Hydrocortisone (Solu-Cortef) 25 mg BID IV ; Start 04/29/17 at 09:00 Diltiazem HCl (Cardizem Iv) 5 mg Q1H PRN IV HEART RATE GREATER THAN 120 Last administered on 04/29/17 06:17; Admin Dose 5 MG; Start 04/29/17 at 05:00 FRANCISCO BLACKWOOD MD Apr 29, 2017 07:11
--- NOTE | 2017-04-29 07:27 | PN ---
Date/Time of Note Date/Time of Note DATE: 04/29/17 TIME: 07:22 Assessment/Plan VTE Prophylaxis VTE Prophylaxis Intervention: other Lines/Catheters IV Catheter Type (from Nrs): PICC Line Central line still needed: Yes Urinary Cath still in place: Yes Reason Cath still needed: other (indicate) Assessment/Plan Chief Complaint/Hosp Course 1. Status post code arrest -Etiology was respiratory due to hypoxemia -Patient currently stable -Monitor 2. Nonoliguric keyonna. With previously normal baseline creatinine. Etiology is likely secondary to septic KEYONNA with possible ATN -Renal function has been stable, but has progressive azotemia, due to hypercatabolic state, diuretic -Continue treatment plan. Supportive care renally dose meds avoid nephrotoxins -Follow-up renal panel - 3. Sepsis, status post shock. Etiology is likely secondary to aspiration pneumonia, fungemia -Patient currently off pressors. Remains on antibiotics, antifungals - Patient's blood cultures have been reviewed. - Continue current treatment plan Follow-up with infectious disease 3. Hypoxemic respiratory failure secondary CHF, pneumonia -Patient status post extubation, currently stable nasal cannula -Continue diuretic therapy -Follow-up with pulmonary 4. Volume overload. Etiology likely secondary to sepsis capillary leak. Possible diastolic heart failure. -Continue Lasix, Aldactone. We will give 1 dose of metolazone 5. Elevated troponin. Possible non-STEMI type II. We will continue to monitor follow-up with cardiology 6. History of adrenal insufficiency. -Patient currently on stress steroids, being weaned off slowly -Appreciate endocrinology evaluation 7. Acute encephalopathy etiologies toxic metabolic, possible anoxic injury. Mental status is improving, patient following commands CT scan showed no acute finding Appreciate Dr. Ellis evaluation -Continue to monitor closely 8. Hypernatremia -Patient has a free water deficit of approximately 3 L -Continue free water flushes increased to 400 cc every 4 hours 9. Hypothyroidism continue Synthroid 10. Anemia. -Hemoglobin levels have declined, will repeat H&H level. Consider transfusion 11. Mineral bone disorder will monitor calcium phosphorus levels 12. h/o tongue cancer with resection 13. History of diastolic heart failure/coronary disease -Continue medical management 14. Leukocytosis. -Etiology is likely secondary sepsis, steroids. -Slowly improving as steroids are being weaned down - Follow-up with infectious disease. 15. Hypomagnesemia. Continue to monitor and replete as needed 16. Left upper extremity DVT. Patient's on heparin and aspirin. Continue to monitor 17. Dysphagia status post PEG -Resume tube feedings, if no further episodes of emesis 18. Arrhythmia Status post amiodarone drip Follow-up with cardio 19. possible acute cholecystitis -Patient's HIDA scan was positive - cholecystostomy drain was not placed due to insufficient fluid. -No plan for drain placement at this time. I discussed case with general surgery Appreciate surgery's evaluation. 20. Patient with profound weakness possible ICU myopathy -We will place another neurology consult for evaluation Disposition. Pending [place] evaluation I spent greater than 40 minutes of critical care time with this pt Problems: Subjective 24 Hr Interval Summary Free Text/Dictation Patient remains serious but stable condition She has profound weakness Overnight patient went to [facility] with rapid rate currently Cardizem Exam/Review of Systems Vital Signs Vitals Vital Signs Date Time Temp Pulse Resp B/P Pulse Ox O2 Delivery O2 Flow Rate FiO2 04/29/17 07:00 131 18 136/93 100 04/29/17 04:00 97.9 04/29/17 01:00 Nasal Cannula 3.0 04/26/17 13:30 30 Intake and Output 04/28/17 04/28/17 04/29/17 15:00 23:00 07:00 Intake Total 200 ml 750 ml Output Total 200 ml 340 ml Balance 0 ml 410 ml Exam HEENT: Head is normocephalic. NECK: Supple. HEART: Irregular LUNGS: Show diminished breath sounds at base. ABDOMEN: Soft, nontender to palpation without rebound or guarding. EXTREMITIES: Negative for clubbing, cyanosis. Positive edema diffuse anasarca DERMATOLOGIC: No rashes. MUSCULOSKELETAL: No joint effusions, NEUROLOGIC: No change in exam. General weakness Results Result Diagram: 04/29/17 0430 04/29/17 0430 Results 24 hrs Laboratory Tests Test 04/28/17 12:18 04/28/17 17:44 04/29/17 00:48 04/29/17 04:30 Bedside Glucose 141 165 186 White Blood Count 21.1 H Red Blood Count 2.45 L Hemoglobin 8.4 L Hematocrit 28.1 L Mean Corpuscular Volume 114.7 H Mean Corpuscular Hemoglobin 34.3 H Mean Corpuscular Hemoglobin Concent 29.9 L Red Cell Distribution Width 14.9 H Platelet Count 435 H Mean Platelet Volume 12.3 H Neutrophils % 87.0 H Lymphocytes % 4.4 L Monocytes % 5.3 Eosinophils % 0.0 Basophils % 0.2 Nucleated Red Blood Cells % 0.1 H Neutrophils # 18.4 H Lymphocytes # 0.9 Monocytes # 1.1 H Eosinophils # 0.0 Basophils # 0.0 Nucleated Red Blood Cells # 0.0 Sodium Level 150 H Potassium Level 5.0 Chloride Level 110 Carbon Dioxide Level 32 H Anion Gap 13 Blood Urea Nitrogen 80 H Creatinine 1.14 H Glucose Level 161 Calcium Level 8.6 Phosphorus Level 4.4 Magnesium Level 2.3 Test 04/29/17 05:29 Bedside Glucose 148 Medications Medications Current Medications Norepinephrine/ Dextrose (Levophed/D5W) 500 ml @ 0 mls/hr TITRATE IV Last administered on 04/14/17 10:24; Admin Dose 18.75 MLS/HR; Start 04/11/17 at 12:30 Aspirin (Aspirin) 325 mg DAILY NGT Last administered on 04/28/17 08:46; Admin Dose 325 MG; Start 04/12/17 at 09:00 Metoprolol Tartrate (Lopressor) 25 mg BID NGT Last administered on 04/28/17 21 :20; Admin Dose 25 MG; Start 04/11/17 at 21:00 Metoprolol Tartrate (Lopressor) 5 mg Q4H PRN IV HR>110 Hold SBP<110 Last administered on 04/20/17 17:36; Admin Dose 5 MG; Start 04/11/17 at 13:30 Lansoprazole 30 mg 30 mg DAILY GTB Last administered on 04/28/17 08:45; Admin Dose 30 MG; Start 04/12/17 at 09:00 Phenylephrine HCl/ Dextrose ([place]-Syneph/D5W) 500 ml @ 0 mls/hr TITRATE IV Last administered on 04/12/17 02:52; Admin Dose 75 MLS/HR; Start 04/11/17 at 16:00 Miscellaneous Information 1 ea NOTE XX ; Start 04/11/17 at 16:30 Glucose (Glutose) 15 gm Q15M PRN PO DECREASED GLUCOSE; Start 04/11/17 at 16:30 Glucose (Glutose) 22.5 gm Q15M PRN PO DECREASED GLUCOSE; Start 04/11/17 at 16: 30 Dextrose (D50w Syringe) 25 ml Q15M PRN IV DECREASED GLUCOSE Last administered on 04/12/17 23:56; Admin Dose 25 ML; Start 04/11/17 at 16:30 Dextrose (D50w Syringe) 50 ml Q15M PRN IV DECREASED GLUCOSE; Start 04/11/17 at 16:30 Glucagon (Glucagen) 1 mg Q15M PRN IM DECREASED GLUCOSE; Start 04/11/17 at 16:30 Glucose 15 gm 15 gm Q15M PRN BUCCAL DECREASED GLUCOSE; Start 04/11/17 at 16:30 Midazolam HCl 50 ml @ 1 mls/hr TITRATE IV Last administered on 04/13/17 04:30; Admin Dose 2 MLS/HR; Start 04/11/17 at 23:30 Fentanyl (Sublimaze) 100 ml @ 0.5 mls/hr TITRATE IV Last administered on 02:48; Admin Dose 0.5 MLS/HR; Start 04/12/17 at 09:30 Metoclopramide HCl (Reglan) 10 mg Q6 IV Last administered on 04/29/17 05:27; Admin Dose 10 MG; Start 04/12/17 at 18:00 Insulin Aspart (Novolog Insulin Pen) NOVOLOG *MILD* ALGORI... Q6H SC Last administered on 04/29/17 05:33; Admin Dose 1 UNIT; Start 04/15/17 at 00:00 Metronidazole (Flagyl) 500 mg Q8 NGT Last administered on 04/29/17 05:19; Admin Dose 500 MG; Start 04/15/17 at 14:00 IV Flush (NS 10 ml) 10 ml PRN PRN IV FLUSH LINE; Start 04/15/17 at 13:00 Amiodarone HCl (Cordarone) 200 mg BID GTB Last administered on 04/28/17 21:20 ; Admin Dose 200 MG; Start 04/16/17 at 13:00 Enoxaparin Sodium (Lovenox) 40 mg HS SC Last administered on 04/17/17 20:38; Admin Dose 40 MG; Start 04/17/17 at 21:00; Status Future Hold Heparin Sodium (Porcine) (Heparin (5000 Units/0.5 ml)) 5,000 unit BID SC Last administered on 04/28/17 21:24; Admin Dose 5,000 UNIT; Start 04/18/17 at 16:22 Acetaminophen/ Hydrocodone Bitart ([place] (5/325)) 2 tab Q4H PRN NGT MODERATE PAIN LEVEL 4-6 Last administered on 04/28/17 21:36; Admin Dose 2 TAB; Start 04/18/17 at 17:30 Citalopram Hydrobromide (Celexa) 20 mg DAILY NGT Last administered on 08:46; Admin Dose 20 MG; Start 04/19/17 at 09:00 Hydralazine HCl 20 mg 20 mg Q6H PRN IV sbp ABOVE 160 Last administered on 19:03; Admin Dose 20 MG; Start 04/18/17 at 18:30 Caspofungin/ Sodium Chloride (Cancidas/NS) 250 ml @ 250 mls/hr Q24H IV Last administered on 04/28/17 10:18; Admin Dose 250 MLS/HR; Start 04/21/17 at 10:00 Chlorhexidine Gluconate (Peridex) 15 ml BID MT Last administered on 04/28/17 21:20; Admin Dose 15 ML; Start 04/22/17 at 21:00 Vitamin A/Vitamin D (Vitamin A & D Oint) 1 applic TID TOP Last administered on 04/28/17 21:31; Admin Dose 1 APPLIC; Start 04/22/17 at 21:00 Vitamin A/Vitamin D (Vitamin A & D Oint) 1 applic TID PRN TOP DRYNESS Last administered on 04/22/17 15:29; Admin Dose 1 APPLIC; Start 04/22/17 at 15:00 Acetaminophen/ Hydrocodone Bitart ([place] (5/325)) 1 tab Q6H GTB Last administered on 04/29/17 04:23; Admin Dose 1 TAB; Start 04/22/17 at 21:30 Valacyclovir HCl (Valtrex) 500 mg BID PO Last administered on 04/28/17 21:21; Admin Dose 500 MG; Start 04/24/17 at 21:00; Stop 05/01/17 at 21:59 Spironolactone (Aldactone) 25 mg DAILY NGT Last administered on 04/28/17 08:46 ; Admin Dose 25 MG; Start 04/25/17 at 19:00 Hydrocortisone (Solu-Cortef) 25 mg BID IV ; Start 04/29/17 at 09:00 Diltiazem HCl 5 mg 5 mg Q1H PRN IV HEART RATE GREATER THAN 120 Last administered on 04/29/17t 06:17; Admin Dose 5 MG; Start 04/29/17 at 05:00 Amiodarone HCl 100 ml @ 600 mls/hr ONCE ONCE IV ; Start 04/29/17 at 07:30; Stop 04/29/17 at 07:39 Amiodarone HCl/ Dextrose (Cordarone Iv/ D5W) 500 ml @ 33.33 mls/ hr Q15H1M IV ; Start 04/29/17 at 08:00; Stop 04/29/17 at 14:00 NINA MACIEL DO Apr 29, 2017 07:26
[2017-04-29] MEDS ORDERED: AMIODARONE 150MG/D5W BOLUS 100 ML IV ONE (07:30)
[2017-04-29] MEDS ORDERED: AMIODARONE 900 MG in DEXTROSE 5% 482 ML IV SCH ×2 (08:00→14:01)
[2017-04-29] MEDS ORDERED: METOLAZONE 5 MG TAB PO ONE (08:30)
[2017-04-29] MEDS: HYDROCORTISONE 100 MG INJ IV SCH ×2 (09:25→20:43)
[2017-04-29] MEDS: LANSOPRAZOLE 30 MG CAP GTB SCH (09:27)
[2017-04-29] MEDS: VALACYCLOVIR 500 MG TAB PO SCH ×2 (09:28→20:42)
[2017-04-29] MEDS: ASPIRIN 325 MG TAB NGT SCH (09:28)
[2017-04-29] MEDS: SPIRONOLACTONE 25 MG TAB NGT SCH (09:28)
[2017-04-29] MEDS: AMIODARONE 200 MG TAB GTB SCH ×2 (09:29→20:42)
[2017-04-29] MEDS: METOPROLOL 25 MG TAB NGT SCH ×2 (09:31→20:53)
[2017-04-29] MEDS: CITALOPRAM 20 MG TAB NGT SCH (09:31)
[2017-04-29] MEDS: CHLORHEXIDINE GLUCONATE 15 ML UD CUP MT SCH ×2 (09:32→20:42)
[2017-04-29] MEDS: VITAMIN A & D 5 GM OINT PACKET TOP SCH ×3 (09:33→20:53)
[2017-04-29] MEDS: CASPOFUNGIN 50 MG in NS 250 ML IV SCH (09:35)
[2017-04-29] MEDS: HEPARIN 5,000 UNIT/0.5 ML VIAL SC SCH ×2 (09:36→21:26)
--- NOTE | 2017-04-29 10:43 | CONS ---
Date/Time of Note Date/Time of Note DATE: 04/29/17 TIME: 10:41 Consult Date/Type/Reason Admit Date/Time Apr 11, 2017 at 11:28 Initial Consult Date 04/12/17 Type of Consultation: Pulmonary Ordering Provider: NINA MACIEL DO Subjective Patient is awake alert and oriented this morning appears comfortable at rest. Overnight had atrial fibrillation with rapid ventricular rate. Objective Vital Signs Date Time Temp Pulse Resp B/P Pulse Ox O2 Delivery O2 Flow Rate FiO2 04/29/17 08:00 130 04/29/17 07:00 18 136/93 100 04/29/17 04:00 97.9 04/29/17 01:00 Nasal Cannula 3.0 04/26/17 13:30 30 Intake and Output 04/28/17 04/28/17 04/29/17 14:59 22:59 06:59 Intake Total 150 ml 800 ml Output Total 140 ml 400 ml Balance 10 ml 400 ml Exam GENERAL: Chronically ill-appearing elderly lady on nasal cannula oxygen VITAL SIGNS: per chart NECK: Supple. No JVD or lymphadenopathy. Stoma site has dressing in place CARDIAC EXAM: S1, S2. No added sounds or murmurs. CHEST: Diminished air entry bilaterally poor effort ABDOMEN: Soft, nontender. No guarding or rebound. EXTREMITIES: No cyanosis, clubbing edema +2 NEUROLOGIC: Generalized weakness. Results/Medications Result Diagram: 04/29/17 0430 04/29/17 0430 Results 24 hrs Laboratory Tests Test 04/28/17 12:18 04/28/17 17:44 04/29/17 00:48 04/29/17 04:30 Bedside Glucose 141 165 186 White Blood Count 21.1 H Red Blood Count 2.45 L Hemoglobin 8.4 L Hematocrit 28.1 L Mean Corpuscular Volume 114.7 H Mean Corpuscular Hemoglobin 34.3 H Mean Corpuscular Hemoglobin Concent 29.9 L Red Cell Distribution Width 14.9 H Platelet Count 435 H Mean Platelet Volume 12.3 H Neutrophils % 87.0 H Lymphocytes % 4.4 L Monocytes % 5.3 Eosinophils % 0.0 Basophils % 0.2 Nucleated Red Blood Cells % 0.1 H Neutrophils # 18.4 H Lymphocytes # 0.9 Monocytes # 1.1 H Eosinophils # 0.0 Basophils # 0.0 Nucleated Red Blood Cells # 0.0 Sodium Level 150 H Potassium Level 5.0 Chloride Level 110 Carbon Dioxide Level 32 H Anion Gap 13 Blood Urea Nitrogen 80 H Creatinine 1.14 H Glucose Level 161 Calcium Level 8.6 Phosphorus Level 4.4 Magnesium Level 2.3 Test 04/29/17 05:29 Bedside Glucose 148 Medications Current Medications Norepinephrine/ Dextrose (Levophed/D5W) 500 ml @ 0 mls/hr TITRATE IV Last administered on 04/14/17 10:24; Admin Dose 18.75 MLS/HR; Start 04/11/17 at 12:30 Aspirin (Aspirin) 325 mg DAILY NGT Last administered on 04/29/17 09:28; Admin Dose 325 MG; Start 04/12/17 at 09:00 Metoprolol Tartrate (Lopressor) 25 mg BID NGT Last administered on 04/29/17 09 :31; Admin Dose 25 MG; Start 04/11/17 at 21:00 Metoprolol Tartrate (Lopressor) 5 mg Q4H PRN IV HR>110 Hold SBP<110 Last administered on 04/20/17 17:36; Admin Dose 5 MG; Start 04/11/17 at 13:30 Lansoprazole 30 mg 30 mg DAILY GTB Last administered on 04/29/17 09:27; Admin Dose 30 MG; Start 04/12/17 at 09:00 Phenylephrine HCl/ Dextrose ([place]uy-Syneph/D5W) 500 ml @ 0 mls/hr TITRATE IV Last administered on 04/12/17 02:52; Admin Dose 75 MLS/HR; Start 04/11/17 at 16:00 Miscellaneous Information 1 ea NOTE XX ; Start 04/11/17 at 16:30 Glucose (Glutose) 15 gm Q15M PRN PO DECREASED GLUCOSE; Start 04/11/17 at 16:30 Glucose (Glutose) 22.5 gm Q15M PRN PO DECREASED GLUCOSE; Start 04/11/17 at 16: 30 Dextrose (D50w Syringe) 25 ml Q15M PRN IV DECREASED GLUCOSE Last administered on 04/12/17 23:56; Admin Dose 25 ML; Start 04/11/17 at 16:30 Dextrose (D50w Syringe) 50 ml Q15M PRN IV DECREASED GLUCOSE; Start 04/11/17 at 16:30 Glucagon (Glucagen) 1 mg Q15M PRN IM DECREASED GLUCOSE; Start 04/11/17 at 16:30 Glucose 15 gm 15 gm Q15M PRN BUCCAL DECREASED GLUCOSE; Start 04/11/17 at 16:30 Midazolam HCl 50 ml @ 1 mls/hr TITRATE IV Last administered on 04/13/17 04:30; Admin Dose 2 MLS/HR; Start 04/11/17 at 23:30 Fentanyl (Sublimaze) 100 ml @ 0.5 mls/hr TITRATE IV Last administered on 02:48; Admin Dose 0.5 MLS/HR; Start 04/12/17 at 09:30 Metoclopramide HCl (Reglan) 10 mg Q6 IV Last administered on 04/29/17 05:27; Admin Dose 10 MG; Start 04/12/17 at 18:00 Insulin Aspart (Novolog Insulin Pen) NOVOLOG *MILD* ALGORI... Q6H SC Last administered on 04/29/17 05:33; Admin Dose 1 UNIT; Start 04/15/17 at 00:00 Metronidazole (Flagyl) 500 mg Q8 NGT Last administered on 04/29/17 05:19; Admin Dose 500 MG; Start 04/15/17 at 14:00 IV Flush (NS 10 ml) 10 ml PRN PRN IV FLUSH LINE; Start 04/15/17 at 13:00 Amiodarone HCl (Cordarone) 200 mg BID GTB Last administered on 04/29/17 09:29 ; Admin Dose 200 MG; Start 04/16/17 at 13:00 Enoxaparin Sodium (Lovenox) 40 mg HS SC Last administered on 04/17/17 20:38; Admin Dose 40 MG; Start 04/17/17 at 21:00; Status Future Hold Heparin Sodium (Porcine) (Heparin (5000 Units/0.5 ml)) 5,000 unit BID SC Last administered on 04/29/17 09:36; Admin Dose 5,000 UNIT; Start 04/18/17 at 16:22 Acetaminophen/ Hydrocodone Bitart ([place] (5/325)) 2 tab Q4H PRN NGT MODERATE PAIN LEVEL 4-6 Last administered on 04/28/17 21:36; Admin Dose 2 TAB; Start 04/18/17 at 17:30 Citalopram Hydrobromide (Celexa) 20 mg DAILY NGT Last administered on 09:31; Admin Dose 20 MG; Start 04/19/17 at 09:00 Hydralazine HCl 20 mg 20 mg Q6H PRN IV sbp ABOVE 160 Last administered on 19:03; Admin Dose 20 MG; Start 04/18/17 at 18:30 Caspofungin/ Sodium Chloride (Cancidas/NS) 250 ml @ 250 mls/hr Q24H IV Last administered on 04/29/17 09:35; Admin Dose 250 MLS/HR; Start 04/21/17 at 10:00 Chlorhexidine Gluconate (Peridex) 15 ml BID MT Last administered on 04/29/17 09:32; Admin Dose 15 ML; Start 04/22/17 at 21:00 Vitamin A/Vitamin D (Vitamin A & D Oint) 1 applic TID TOP Last administered on 04/29/17 09:33; Admin Dose 1 APPLIC; Start 04/22/17 at 21:00 Vitamin A/Vitamin D (Vitamin A & D Oint) 1 applic TID PRN TOP DRYNESS Last administered on 04/22/17 15:29; Admin Dose 1 APPLIC; Start 04/22/17 at 15:00 Acetaminophen/ Hydrocodone Bitart ([place] (5/325)) 1 tab Q6H GTB Last administered on 04/29/17 10:15; Admin Dose 1 TAB; Start 04/22/17 at 21:30 Valacyclovir HCl (Valtrex) 500 mg BID PO Last administered on 04/29/17 09:28; Admin Dose 500 MG; Start 04/24/17 at 21:00; Stop 05/01/17 at 21:59 Spironolactone (Aldactone) 25 mg DAILY NGT Last administered on 04/29/17 09:28 ; Admin Dose 25 MG; Start 04/25/17 at 19:00 Hydrocortisone (Solu-Cortef) 25 mg BID IV Last administered on 04/29/17 09:25 ; Admin Dose 25 MG; Start 04/29/17 at 09:00 Diltiazem HCl 5 mg 5 mg Q1H PRN IV HEART RATE GREATER THAN 120 Last administered on 04/29/17 06:17; Admin Dose 5 MG; Start 04/29/17 at 05:00 Amiodarone HCl 900 mg/Dextrose 500 ml @ 33.33 mls/ hr Q15H1M IV Last administered on 04/29/17t 08:20; Admin Dose 33.33 MLS/HR; Start 04/29/17 at 08: 00; Stop 04/29/17 at 14:00 Amiodarone HCl/ Dextrose (Cordarone Iv/ D5W) 500 ml @ 16.66 mls/ hr Q24H IV ; Start 04/29/17 at 14:01; Stop 04/30/17 at 08:00 Assessment/Plan Chief Complaint/Hosp Course IMP: 1. Status post septic Shock--likely due to multilobar aspiration pneumonia vs. HCAP possibly secondary to acute cholecystitis also 2. Multifocal pneumonia aspiration vs.HCAP, persistent leukocytosis chest x-ray shows improved lung aeration 3. Hypercapnic Respiratory Failure--likely due to critical illness now extubated again on nasal cannula 4. Status post lactic acidosis. 5. Demand Ischemia, atrial fibrillation with rapid ventricular rate 6. Cholecystitis stable, not for surgical intervention at present 7. Dysphagia continues tube feeding RECS: 1. Continue pulmonary toilet nasal cannula oxygen 2. Oral care. 3. ABG: Monitor PCO2 4. Resume tube feeding 5. Continue antibiotics 6. Continue physical therapy 7. Surgical recommendations 8. Consider increasing free water. 9. Amiodarone drip Critical care time 40 minutes. Case d/w RN and patient's Continue intensive care given atrial fibrillation and rapid ventricular rate. Problems: DARWIN CRAWFORD MD, [facility] Apr 29, 2017 10:42
--- NOTE | 2017-04-29 12:19 | RADRPT ---
PROCEDURE: XR Chest. CLINICAL INDICATION: Pneumonia. CHF. TECHNIQUE: Single AP portable chest. COMPARISON: 01/12/2017 Chest x-ray FINDINGS: The cardiac silhouette is mildly enlarged but stable in size. Atherosclerotic calcification of the aorta. Increased pulmonary interstitial and alveolar markings opacities focal consolidation or pleu ral effusion. No pneumothorax. The osseous structures and soft tissues are unremarkable. IMPRESSION: 1. Mild cardiomegaly. Subtle prominent interstitial and alveolar opacities without focal consolidat ion or pleural effusion. RPTAT:AAJJ Yumiko Mills Physician Date Time Electronically viewed and signed by Physician Flako on 04/29/2017 12:18 ANITA/
[2017-04-29] MEDS: LEVALBUTEROL (NEB) 0.63 MG/3 ML AMP HHN PRN (12:40)
--- NOTE | 2017-04-29 16:57 | CONS ---
Date/Time of Note Date/Time of Note DATE: 04/29/17 TIME: 16:54 Assessment/Plan Assessment/Plan Chief Complaint/Hosp Course Alert looks comfortable on nasal cannula no fevers, started on amiodarone drip for arrhythmia Temperature 98.7 pulse 74 respirations 20 blood pressure 138/62 saturation 100 on nasal cannula WBC 21.1 H&H 8.4 and 28.1 platelets 435 neutrophils 87 BUN 80 creatinine 1.14 Chest x-ray this morning revealed mild cardiomegaly no focal consolidation Antibiotics: Cancidas Valtrex indwelling: PEG, Latif, PICC line Repeat blood culture on April 24 negative preliminary. Blood culture on April 20 growing yeast, repeat sputum culture on April 21 growing Ramonita species not albicans and Ramonita glabrata Indwelling's: Endotracheal tube, NG tube, Latif, PICC line placed on April 15 Physical examination: Well-developed fragile chronically ill-appearing elderly woman who is in no distress. Head atraumatic, normocephalic sclera nonicteric. Neck is supple. Chest rise symmetrical breath sounds with scattered rhonchi. Abdomen soft, bowel tones present. Extremities with bilateral edema. Skin: Positive for anasarca Assessment: 1. Fungemia secondary to #2 2. Resolving pneumonia with repeat sputum culture growing yeast 3. Status post septic shock 4. Acute on chronic respiratory failure, status post extubated 5. History of tongue cancer 6. Gallstones, no evidence of cholecystitis 7. History of C. difficile colitis 8. Oral lesions, likely secondary to endotracheal tube, on empiric Valtrex 9. Arrhythmia and non-ST elevation NV Plan: Remains stable, status post steroids discontinued yesterday, continue present care, antibiotics, aspirin precautions, follow pulmonary recommendations Discussed with staff/ Discussed with Dr. Mena Problems: Consultation Date/Type/Reason Admit Date/Time Apr 11, 2017 at 11:28 Initial Consult Date 04/12/17 Type of Consultation: ID Referring Provider: NINA MACIEL DO Exam/Review of Systems Vital Signs Vitals Vital Signs Date Time Temp Pulse Resp B/P Pulse Ox O2 Delivery O2 Flow Rate FiO2 04/29/17 16:00 85 04/29/17 13:00 8 138/62 100 04/29/17 08:00 98.7 04/29/17 08:00 Nasal Cannula 3.0 04/26/17 13:30 30 Intake and Output 04/28/17 04/28/17 04/29/17 15:00 23:00 07:00 Intake Total 200 ml 750 ml Output Total 200 ml 340 ml Balance 0 ml 410 ml Results Result Diagram: 04/29/17 0430 04/29/17 0430 Results 24 hrs Laboratory Tests Test 04/28/17 17:44 04/29/17 00:48 04/29/17 04:30 04/29/17 05:29 Bedside Glucose 165 186 148 White Blood Count 21.1 H Red Blood Count 2.45 L Hemoglobin 8.4 L Hematocrit 28.1 L Mean Corpuscular Volume 114.7 H Mean Corpuscular Hemoglobin 34.3 H Mean Corpuscular Hemoglobin Concent 29.9 L Red Cell Distribution Width 14.9 H Platelet Count 435 H Mean Platelet Volume 12.3 H Neutrophils % 87.0 H Lymphocytes % 4.4 L Monocytes % 5.3 Eosinophils % 0.0 Basophils % 0.2 Nucleated Red Blood Cells % 0.1 H Neutrophils # 18.4 H Lymphocytes # 0.9 Monocytes # 1.1 H Eosinophils # 0.0 Basophils # 0.0 Nucleated Red Blood Cells # 0.0 Sodium Level 150 H Potassium Level 5.0 Chloride Level 110 Carbon Dioxide Level 32 H Anion Gap 13 Blood Urea Nitrogen 80 H Creatinine 1.14 H Glucose Level 161 Calcium Level 8.6 Phosphorus Level 4.4 Magnesium Level 2.3 Test 04/29/17 12:20 Bedside Glucose 159 Medications Medications Current Medications Norepinephrine/ Dextrose (Levophed/D5W) 500 ml @ 0 mls/hr TITRATE IV Last administered on 04/14/17 10:24; Admin Dose 18.75 MLS/HR; Start 04/11/17 at 12:30 Aspirin (Aspirin) 325 mg DAILY NGT Last administered on 04/29/17 09:28; Admin Dose 325 MG; Start 04/12/17 at 09:00 Metoprolol Tartrate (Lopressor) 25 mg BID NGT Last administered on 04/29/17 09 :31; Admin Dose 25 MG; Start 04/11/17 at 21:00 Metoprolol Tartrate (Lopressor) 5 mg Q4H PRN IV HR>110 Hold SBP<110 Last administered on 04/20/17 17:36; Admin Dose 5 MG; Start 04/11/17 at 13:30 Lansoprazole 30 mg 30 mg DAILY GTB Last administered on 04/29/17 09:27; Admin Dose 30 MG; Start 04/12/17 at 09:00 Phenylephrine HCl/ Dextrose ([place]uy-Syneph/D5W) 500 ml @ 0 mls/hr TITRATE IV Last administered on 04/12/17 02:52; Admin Dose 75 MLS/HR; Start 04/11/17 at 16:00 Miscellaneous Information 1 ea NOTE XX ; Start 04/11/17 at 16:30 Glucose (Glutose) 15 gm Q15M PRN PO DECREASED GLUCOSE; Start 04/11/17 at 16:30 Glucose (Glutose) 22.5 gm Q15M PRN PO DECREASED GLUCOSE; Start 04/11/17 at 16: 30 Dextrose (D50w Syringe) 25 ml Q15M PRN IV DECREASED GLUCOSE Last administered on 04/12/17 23:56; Admin Dose 25 ML; Start 04/11/17 at 16:30 Dextrose (D50w Syringe) 50 ml Q15M PRN IV DECREASED GLUCOSE; Start 04/11/17 at 16:30 Glucagon (Glucagen) 1 mg Q15M PRN IM DECREASED GLUCOSE; Start 04/11/17 at 16:30 Glucose 15 gm 15 gm Q15M PRN BUCCAL DECREASED GLUCOSE; Start 04/11/17 at 16:30 Midazolam HCl 50 ml @ 1 mls/hr TITRATE IV Last administered on 04/13/17 04:30; Admin Dose 2 MLS/HR; Start 04/11/17 at 23:30 Fentanyl (Sublimaze) 100 ml @ 0.5 mls/hr TITRATE IV Last administered on 02:48; Admin Dose 0.5 MLS/HR; Start 04/12/17 at 09:30 Metoclopramide HCl (Reglan) 10 mg Q6 IV Last administered on 04/29/17 11:57; Admin Dose 10 MG; Start 04/12/17 at 18:00 Insulin Aspart (Novolog Insulin Pen) NOVOLOG *MILD* ALGORI... Q6H SC Last administered on 04/29/17 12:33; Admin Dose 1 UNIT; Start 04/15/17 at 00:00 Metronidazole (Flagyl) 500 mg Q8 NGT Last administered on 04/29/17 13:59; Admin Dose 500 MG; Start 04/15/17 at 14:00 IV Flush (NS 10 ml) 10 ml PRN PRN IV FLUSH LINE; Start 04/15/17 at 13:00 Amiodarone HCl (Cordarone) 200 mg BID GTB Last administered on 04/29/17 09:29 ; Admin Dose 200 MG; Start 04/16/17 at 13:00 Enoxaparin Sodium (Lovenox) 40 mg HS SC Last administered on 04/17/17 20:38; Admin Dose 40 MG; Start 04/17/17 at 21:00; Status Future Hold Heparin Sodium (Porcine) (Heparin (5000 Units/0.5 ml)) 5,000 unit BID SC Last administered on 04/29/17 09:36; Admin Dose 5,000 UNIT; Start 04/18/17 at 16:22 Acetaminophen/ Hydrocodone Bitart ([place] (5/325)) 2 tab Q4H PRN NGT MODERATE PAIN LEVEL 4-6 Last administered on 04/28/17 21:36; Admin Dose 2 TAB; Start 04/18/17 at 17:30 Citalopram Hydrobromide (Celexa) 20 mg DAILY NGT Last administered on 09:31; Admin Dose 20 MG; Start 04/19/17 at 09:00 Hydralazine HCl 20 mg 20 mg Q6H PRN IV sbp ABOVE 160 Last administered on 19:03; Admin Dose 20 MG; Start 04/18/17 at 18:30 Caspofungin/ Sodium Chloride (Cancidas/NS) 250 ml @ 250 mls/hr Q24H IV Last administered on 04/29/17 09:35; Admin Dose 250 MLS/HR; Start 04/21/17 at 10:00 Chlorhexidine Gluconate (Peridex) 15 ml BID MT Last administered on 04/29/17 09:32; Admin Dose 15 ML; Start 04/22/17 at 21:00 Vitamin A/Vitamin D (Vitamin A & D Oint) 1 applic TID TOP Last administered on 04/29/17 12:33; Admin Dose 1 APPLIC; Start 04/22/17 at 21:00 Vitamin A/Vitamin D (Vitamin A & D Oint) 1 applic TID PRN TOP DRYNESS Last administered on 04/22/17 15:29; Admin Dose 1 APPLIC; Start 04/22/17 at 15:00 Acetaminophen/ Hydrocodone Bitart ([place] (5/325)) 1 tab Q6H GTB Last administered on 04/29/17 16:30; Admin Dose 1 TAB; Start 04/22/17 at 21:30 Valacyclovir HCl (Valtrex) 500 mg BID PO Last administered on 04/29/17 09:28; Admin Dose 500 MG; Start 04/24/17 at 21:00; Stop 05/01/17 at 21:59 Spironolactone (Aldactone) 25 mg DAILY NGT Last administered on 04/29/17 09:28 ; Admin Dose 25 MG; Start 04/25/17 at 19:00 Hydrocortisone (Solu-Cortef) 25 mg BID IV Last administered on 04/29/17 09:25 ; Admin Dose 25 MG; Start 04/29/17 at 09:00 Diltiazem HCl 5 mg 5 mg Q1H PRN IV HEART RATE GREATER THAN 120 Last administered on 04/29/17 06:17; Admin Dose 5 MG; Start 04/29/17 at 05:00 Amiodarone HCl/ Dextrose (Cordarone Iv/ D5W) 500 ml @ 16.66 mls/ hr Q24H IV Last administered on 04/29/17 14:07; Admin Dose 16.66 MLS/HR; Start 04/29/17 at 14:01; Stop 04/30/17 at 08:00 LORETO MCKEON NP Apr 29, 2017 16:57
[2017-04-29] MEDS: LEVALBUTEROL (NEB) 0.63 MG/3 ML AMP HHN SCH (20:12)
--- NOTE | 2017-04-29 21:22 | CONS ---
Date/Time of Note Date/Time of Note DATE: 04/29/17 TIME: 21:13 Consult Date/Type/Reason Admit Date/Time Apr 11, 2017 at 11:28 Initial Consult Date 04/14/17 Type of Consultation: neurology Ordering Provider: NINA MACIEL DO Subjective extubated, weak Objective Vital Signs Date Time Temp Pulse Resp B/P Pulse Ox O2 Delivery O2 Flow Rate FiO2 04/29/17 20:12 2.0 04/29/17 20:12 81 20 98 Nasal Cannula 04/29/17 17:00 147/67 04/29/17 08:00 98.7 04/26/17 13:30 30 Intake and Output 04/28/17 04/28/17 04/29/17 15:00 23:00 07:00 Intake Total 200 ml 750 ml Output Total 200 ml 340 ml Balance 0 ml 410 ml Results/Medications Result Diagram: 04/29/17 0430 04/29/17 0430 Results 24 hrs Laboratory Tests Test 04/29/17 00:48 04/29/17 04:30 04/29/17 05:29 04/29/17 12:20 Bedside Glucose 186 148 159 White Blood Count 21.1 H Red Blood Count 2.45 L Hemoglobin 8.4 L Hematocrit 28.1 L Mean Corpuscular Volume 114.7 H Mean Corpuscular Hemoglobin 34.3 H Mean Corpuscular Hemoglobin Concent 29.9 L Red Cell Distribution Width 14.9 H Platelet Count 435 H Mean Platelet Volume 12.3 H Neutrophils % 87.0 H Lymphocytes % 4.4 L Monocytes % 5.3 Eosinophils % 0.0 Basophils % 0.2 Nucleated Red Blood Cells % 0.1 H Neutrophils # 18.4 H Lymphocytes # 0.9 Monocytes # 1.1 H Eosinophils # 0.0 Basophils # 0.0 Nucleated Red Blood Cells # 0.0 Sodium Level 150 H Potassium Level 5.0 Chloride Level 110 Carbon Dioxide Level 32 H Anion Gap 13 Blood Urea Nitrogen 80 H Creatinine 1.14 H Glucose Level 161 Calcium Level 8.6 Phosphorus Level 4.4 Magnesium Level 2.3 Test 04/29/17 17:28 Bedside Glucose 156 Medications Current Medications Norepinephrine/ Dextrose (Levophed/D5W) 500 ml @ 0 mls/hr TITRATE IV Last administered on 04/14/17t 10:24; Admin Dose 18.75 MLS/HR; Start 04/11/17 at 12:30 Aspirin (Aspirin) 325 mg DAILY NGT Last administered on 04/29/17 09:28; Admin Dose 325 MG; Start 04/12/17 at 09:00 Metoprolol Tartrate (Lopressor) 25 mg BID NGT Last administered on 04/29/17 09 :31; Admin Dose 25 MG; Start 04/11/17 at 21:00 Metoprolol Tartrate (Lopressor) 5 mg Q4H PRN IV HR>110 Hold SBP<110 Last administered on 04/20/17 17:36; Admin Dose 5 MG; Start 04/11/17 at 13:30 Lansoprazole 30 mg 30 mg DAILY GTB Last administered on 04/29/17 09:27; Admin Dose 30 MG; Start 04/12/17 at 09:00 Phenylephrine HCl/ Dextrose ([place]-Syneph/D5W) 500 ml @ 0 mls/hr TITRATE IV Last administered on 04/12/17 02:52; Admin Dose 75 MLS/HR; Start 04/11/17 at 16:00 Miscellaneous Information 1 ea NOTE XX ; Start 04/11/17 at 16:30 Glucose (Glutose) 15 gm Q15M PRN PO DECREASED GLUCOSE; Start 04/11/17 at 16:30 Glucose (Glutose) 22.5 gm Q15M PRN PO DECREASED GLUCOSE; Start 04/11/17 at 16: 30 Dextrose (D50w Syringe) 25 ml Q15M PRN IV DECREASED GLUCOSE Last administered on 04/12/17 23:56; Admin Dose 25 ML; Start 04/11/17 at 16:30 Dextrose (D50w Syringe) 50 ml Q15M PRN IV DECREASED GLUCOSE; Start 04/11/17 at 16:30 Glucagon (Glucagen) 1 mg Q15M PRN IM DECREASED GLUCOSE; Start 04/11/17 at 16:30 Glucose 15 gm 15 gm Q15M PRN BUCCAL DECREASED GLUCOSE; Start 04/11/17 at 16:30 Midazolam HCl 50 ml @ 1 mls/hr TITRATE IV Last administered on 04/13/17 04:30; Admin Dose 2 MLS/HR; Start 04/11/17 at 23:30 Fentanyl (Sublimaze) 100 ml @ 0.5 mls/hr TITRATE IV Last administered on 02:48; Admin Dose 0.5 MLS/HR; Start 04/12/17 at 09:30 Metoclopramide HCl (Reglan) 10 mg Q6 IV Last administered on 04/29/17 17:23; Admin Dose 10 MG; Start 04/12/17 at 18:00 Insulin Aspart (Novolog Insulin Pen) NOVOLOG *MILD* ALGORI... Q6H SC Last administered on 04/29/17 17:41; Admin Dose 1 UNIT; Start 04/15/17 at 00:00 Metronidazole (Flagyl) 500 mg Q8 NGT Last administered on 04/29/17 13:59; Admin Dose 500 MG; Start 04/15/17 at 14:00 IV Flush (NS 10 ml) 10 ml PRN PRN IV FLUSH LINE; Start 04/15/17 at 13:00 Amiodarone HCl (Cordarone) 200 mg BID GTB Last administered on 04/29/17 09:29 ; Admin Dose 200 MG; Start 04/16/17 at 13:00 Enoxaparin Sodium (Lovenox) 40 mg HS SC Last administered on 04/17/17 20:38; Admin Dose 40 MG; Start 04/17/17 at 21:00; Status Future Hold Heparin Sodium (Porcine) (Heparin (5000 Units/0.5 ml)) 5,000 unit BID SC Last administered on 04/29/17 09:36; Admin Dose 5,000 UNIT; Start 04/18/17 at 16:22 Acetaminophen/ Hydrocodone Bitart ([place] (5/325)) 2 tab Q4H PRN NGT MODERATE PAIN LEVEL 4-6 Last administered on 04/28/17 21:36; Admin Dose 2 TAB; Start 04/18/17 at 17:30 Citalopram Hydrobromide (Celexa) 20 mg DAILY NGT Last administered on 09:31; Admin Dose 20 MG; Start 04/19/17 at 09:00 Hydralazine HCl 20 mg 20 mg Q6H PRN IV sbp ABOVE 160 Last administered on 19:03; Admin Dose 20 MG; Start 04/18/17 at 18:30 Caspofungin/ Sodium Chloride (Cancidas/NS) 250 ml @ 250 mls/hr Q24H IV Last administered on 04/29/17 09:35; Admin Dose 250 MLS/HR; Start 04/21/17 at 10:00 Chlorhexidine Gluconate (Peridex) 15 ml BID MT Last administered on 04/29/17 09:32; Admin Dose 15 ML; Start 04/22/17 at 21:00 Vitamin A/Vitamin D (Vitamin A & D Oint) 1 applic TID TOP Last administered on 04/29/17 12:33; Admin Dose 1 APPLIC; Start 04/22/17 at 21:00 Vitamin A/Vitamin D (Vitamin A & D Oint) 1 applic TID PRN TOP DRYNESS Last administered on 04/22/17 15:29; Admin Dose 1 APPLIC; Start 04/22/17 at 15:00 Acetaminophen/ Hydrocodone Bitart ([place] (5/325)) 1 tab Q6H GTB Last administered on 04/29/17 16:30; Admin Dose 1 TAB; Start 04/22/17 at 21:30 Valacyclovir HCl (Valtrex) 500 mg BID PO Last administered on 04/29/17 09:28; Admin Dose 500 MG; Start 04/24/17 at 21:00; Stop 05/01/17 at 21:59 Spironolactone (Aldactone) 25 mg DAILY NGT Last administered on 04/29/17 09:28 ; Admin Dose 25 MG; Start 04/25/17 at 19:00 Hydrocortisone (Solu-Cortef) 25 mg BID IV Last administered on 04/29/17 09:25 ; Admin Dose 25 MG; Start 04/29/17 at 09:00 Diltiazem HCl 5 mg 5 mg Q1H PRN IV HEART RATE GREATER THAN 120 Last administered on 04/29/17 06:17; Admin Dose 5 MG; Start 04/29/17 at 05:00 Amiodarone HCl/ Dextrose (Cordarone Iv/ D5W) 500 ml @ 16.66 mls/ hr Q24H IV Last administered on 04/29/17 14:07; Admin Dose 16.66 MLS/HR; Start 04/29/17 at 14:01; Stop 04/30/17 at 08:00 Assessment/Plan Chief Complaint/Hosp Course NEUROLOGIC: She is awake, oriented x2, whispers monosylabically. Blimks to threat bilaterally.Follows commands. Pupils sluggish 3-2 mm Extraocular movements intact. Corneal reflexes are present, symmetrical face. Motor 3/5 UE, 3-/5 LE. Deep tendon reflexes 1+ upper extremities, 2 knees, absent ankle jerks. No definite response to plantar stimulation. Postural tremor + asterixis in hands. Sensory grossly intact. Pt was not subsistent if she feels differently with proximal vs distal noxious stimulation IMPRESSION: Encephalopathy, likely toxic metabolic type, improving. Weakness likely combination ICU myopathy/neuropathy. Tremor seems toxic metabolic +/- may relate to weakness as well. Continue current Tx. PT. Problems: BETTIE ROBERTS MD Apr 29, 2017 21:21
[2017-04-29] MEDS: hydrALAzine 20 MG INJ IV PRN (22:40)
--- NOTE | 2017-04-29 23:11 | PN ---
Date/Time of Note Date/Time of Note DATE: 04/29/17 TIME: 23:00 Assessment/Plan Lines/Catheters IV Catheter Type (from [facility]): PICC Line Latif in Place (from [facility]): Yes Assessment/Plan Chief Complaint/Hosp Course 1. Cholelithiasis ? cholecystitis: Ct abd: sludge and small stones in the gallbladder. No gallbladder wall thickening is noted with some pericholecystic fluid is present. Patient off pressors; GT/OGT no output; HIDA positive; IR drain placement cancelled by radiologist since US without evidence of infection. Therefore, Dr. Guadalupe believes the HIDA is false positive. Tolerating tube feeds; no abdominal pain/discomfort; LFT's nl -No surgical intervention required at this time 2. Pneumonia: Recurrent; no fevers; intubated; less secretion sputum cx: PSEUDOMONAS AERUGINOSA, K PNEUMO ESBL, NASRIN GLABRATA; appears comfortable;on nasal canula -pulmonary toilet -abx per ID 3. Vent dependent respiratory failure: 2/2 aspiration PNA+ CHF;reintubated, coded 04/21; extubated -as above 4. Septic shock: improved -on abx -supportive 5. Uncontrolled Afib: s/p amiodarone drip, on oral amiodarone Now SR -medical optimization -lovenox 6. Elevated troponin:NSTEMI; septic shock/demand ischemia -trend 7. Leukocytosis with lactic acidosis: 2/2 pneumonia vs. steroids vs.fungemia vs other (urine, repeat blood cultures negative);wbc up -abx, antifungals -judicious fluid management -supportive measures 8. KEYONNA: likely 2/2 septic shock; s/p code; cr continuing to improve -judicious fluid management -avoid nephrotoxic agents 9. CHF: BNP 92110 -judicious fluid management -medical optimization 10. Adrenal Insufficiency -solucortef 11. Hypomagnesemia: normalized -electrolyte optimization -monitor for cardiac abnormalities 12. Hypothyroidism -cont. synthroid 13. Macrocytic anemia: chronic vs. dilutional vs. acute bleed vs. b12/folate deficiency; h/h stable -monitor -Transfuse as needed 14. Transaminitis: likely 2/2 septic shock vs. cholecystitis; normalized -trend, monitor 15. Diarrhea: 2/2 abx vs. enteritis: resolved; tolerating tf -? probiotics 16. Thrombocytosis: 2/2 inflammatory vs. drug induced vs. other; normalized -monitor -bleeding precautions -supportive 17. Encephalopathy: 2/2 toxic metabolic vs. anoxic injury; CT: No acute intracranial hemorrhage or mass effect. Mild chronic microvascular disease and intracranial atherosclerosis; more alert and communicative; EEG shows no seizure activity -supportive 18. Bilateral upper extremity edema: likely 2/2 decreased movement vs. thrombosis; initial doppler negative, repeat doppler left arm (+) Thrombus -elevate extremities -supportive -anticoagulation 19. Hypoalbuminemia: 2/2 malnutrition +/- inflammation; decreased; tolerating tf ; -nutrition optimization -as above 20 Hypernatremia: minimally improved -judicious fluid management 21. Hypocalcemia:normalized -optimize nutrition 22. Fungemia -antifungals Patient seen and examined in collaboration with Dr. Justus Antonio Problems: Subjective 24 Hr Interval Summary Feels well. Responsive. +bowel function, tolerating tf. Comfortable on nasal cannula. No abdominal pain. No fevers, chills, n/v/d, sob, cp, palpitations, metzger , dizziness, sz Exam/Review of Systems Vital Signs Vitals Vital Signs Date Time Temp Pulse Resp B/P Pulse Ox O2 Delivery O2 Flow Rate FiO2 04/29/17 20:12 2.0 04/29/17 20:12 81 20 98 Nasal Cannula 04/29/17 17:00 147/67 04/29/17 08:00 98.7 04/26/17 13:30 30 Intake and Output 04/28/17 04/28/17 04/29/17 15:00 23:00 07:00 Intake Total 200 ml 750 ml Output Total 200 ml 340 ml Balance 0 ml 410 ml Exam Free Text/Dictation Constitutional: Awake, appears comfortable Head: atraumatic, normocephalic Eyes: PERRL, nl lids, nl sclera ENMT: No mucosa pink and moist (pink and moist with dried lesions), extubated Neck: non-tender, supple Respiratory: dimished, comfortable, on nasal canula Cardiovascular: nl pulses, regular rate and rhythm, NSR, Gastrointestinal: soft, GT tubes site no erythema, no drainage, non tenderness, bowel sounds x 4 quads Genitourinary - Female: nl external genitalia Musculoskeletal: nl extremities to inspection Extremities: normal pulses, bilateral upper/lower extremity edema Neurological: responsive Skin: nl turgor, No rash or lesions Lymph: nl lymph nodes Results Result Diagram: 04/29/17 0430 04/29/17 0430 ADDISON FREGOSO NP Apr 29, 2017 23:10
[2017-04-30] VITALS (15 sets, daily range): BP systolic 110–147; BP diastolic 49–93; PULSE 82–103; RESP 9–25
[2017-04-30] MEDS: LEVALBUTEROL (NEB) 0.63 MG/3 ML AMP HHN SCH ×4 (01:35→20:43)
[2017-04-30] MEDS: METOCLOPRAMIDE 10 MG INJ IV SCH ×5 (01:58→23:57)
[2017-04-30] MEDS: INSULIN ASPART [NOVOLOG] 3 ML PEN SC SCH ×5 (02:04→23:57)
[2017-04-30] MEDS: HYDROCODONE/APAP (5/325) TAB GTB SCH ×4 (03:30→21:00)
[2017-04-30] MEDS: metroNIDAZOLE 500 MG TAB NGT SCH ×2 (05:50→15:01)
[2017-04-30] MEDS: FUROSEMIDE 40 MG INJ IV SCH ×2 (05:50→18:11)
[2017-04-30 06:06] LABS: ADD SCAN DIFF NO
[2017-04-30 06:19] LABS: ABNORMAL IP MESSAGE 1; HEMATOCRIT 29.5 % (37.0-47.0); HEMOGLOBIN 8.9 g/dl (12.0-16.0); MEAN CORPUSCULAR HEMOGLOBIN 34.2 pg (29.0-33.0); MEAN CORPUSCULAR HGB CONC 30.2 g/dl (32.0-37.0); MEAN CORPUSCULAR VOLUME 113.5 fl (82.0-101.0); PLATELET COUNT 449 10^3/UL (140-415); RED CELL DISTRIBUTION WIDTH 15.3 % (11.5-14.5)
[2017-04-30 07:07] LABS: ALBUMIN 2.4 g/dl (3.3-4.9); ALBUMIN/GLOBULIN RATIO 0.88; CALCIUM 8.7 mg/dl (8.4-10.2); CREATININE 1.23 mg/dl (0.44-1.00); MAGNESIUM 2.3 mg/dl (1.7-2.5); POTASSIUM 5.1 mmol/L (3.5-5.1); TOTAL PROTEIN 5.1 g/dl (6.1-8.1)
--- NOTE | 2017-04-30 07:09 | PN ---
Date/Time of Note Date/Time of Note DATE: 04/30/17 TIME: 07:05 Assessment/Plan VTE Prophylaxis VTE Prophylaxis Intervention: other Lines/Catheters IV Catheter Type (from Nrs): PICC Line Central line still needed: Yes Urinary Cath still in place: Yes Reason Cath still needed: other (indicate) Assessment/Plan Chief Complaint/Hosp Course 1. Status post code arrest -Etiology was respiratory due to hypoxemia -Patient currently stable -Monitor 2. Nonoliguric keyonna. With previously normal baseline creatinine. Etiology is likely secondary to septic KEYONNA with possible ATN -Renal function has been stable, but has progressive azotemia, due to hypercatabolic state, diuretic -Continue treatment plan. Supportive care renally dose meds avoid nephrotoxins -Follow-up renal panel - 3. Sepsis, status post shock. Etiology is likely secondary to aspiration pneumonia, fungemia -Patient currently off pressors. Remains on antibiotics, antifungals - Patient's blood cultures have been reviewed. - Continue current treatment plan Follow-up with infectious disease 3. Hypoxemic respiratory failure secondary CHF, pneumonia -Patient status post extubation, currently stable nasal cannula -Continue diuretic therapy -Follow-up with pulmonary 4. Volume overload. Etiology likely secondary to sepsis capillary leak, diastolic heart failure. -Continue Lasix, Aldactone, metolazone -Monitor renal function and electrolytes closely 5. Elevated troponin. Possible non-STEMI type II. We will continue to monitor follow-up with cardiology 6. History of adrenal insufficiency. -Patient currently on stress steroids, being weaned off slowly -Appreciate endocrinology evaluation 7. Acute encephalopathy etiologies toxic metabolic, possible anoxic injury. Mental status is improving, patient following commands CT scan showed no acute finding Appreciate Dr. Ellis evaluation -Continue to monitor closely 8. Hypernatremia -Patient has a free water deficit of approximately 3 L -Continue free water flushes increased to 400 cc every 4 hours 9. Hypothyroidism continue Synthroid 10. Anemia. -Hemoglobin levels have declined, will repeat H&H level. Consider transfusion 11. Mineral bone disorder will monitor calcium phosphorus levels 12. h/o tongue cancer with resection 13. History of diastolic heart failure/coronary disease -Continue medical management 14. Leukocytosis. -Etiology is likely secondary sepsis, steroids. -Slowly improving as steroids are being weaned down - Follow-up with infectious disease. 15. Hypomagnesemia. Continue to monitor and replete as needed 16. Left upper extremity DVT. Patient's on heparin and aspirin. Continue to monitor 17. Dysphagia status post PEG -Resume tube feedings, if no further episodes of emesis 18. Arrhythmia Status post amiodarone drip Follow-up with cardio 19. possible acute cholecystitis -Patient's HIDA scan was positive - cholecystostomy drain was not placed due to insufficient fluid. -No plan for drain placement at this time. I discussed case with general surgery Appreciate surgery's evaluation. 20. 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 Ellis's evaluation Continue supportive care Disposition. Pending [facility] once bed is available I spent greater than 40 minutes of critical care time with this pt Problems: Subjective 24 Hr Interval Summary Free Text/Dictation Patient is in serious but stable condition Diuresing well, Patient remained stable on nasal cannula Exam/Review of Systems Vital Signs Vitals Vital Signs Date Time Temp Pulse Resp B/P Pulse Ox O2 Delivery O2 Flow Rate FiO2 04/30/17 04:26 Nasal Cannula 3.0 04/30/17 04:00 97.8 96 12 147/66 100 04/26/17 13:30 30 Intake and Output 04/29/17 04/29/17 04/30/17 15:00 23:00 07:00 Intake Total 449.98 ml 1457 ml 1400 ml Output Total 700 ml 750 ml Balance 449.98 ml 757 ml 650 ml Exam HEENT: Head is normocephalic. NECK: Supple. HEART: Irregular LUNGS: Show diminished breath sounds at base. ABDOMEN: Soft, nontender to palpation without rebound or guarding. EXTREMITIES: Negative for clubbing, cyanosis. Positive edema diffuse anasarca DERMATOLOGIC: No rashes. MUSCULOSKELETAL: No joint effusions, NEUROLOGIC: No change in exam. General weakness Results Result Diagram: 04/30/17 0543 04/29/17 0430 Results 24 hrs Laboratory Tests Test 04/29/17 12:20 04/29/17 17:28 04/30/17 01:57 04/30/17 05:22 Bedside Glucose 159 156 177 143 Test 04/30/17 05:43 White Blood Count 30.9 #H Red Blood Count 2.60 L Hemoglobin 8.9 L Hematocrit 29.5 L Mean Corpuscular Volume 113.5 H Mean Corpuscular Hemoglobin 34.2 H Mean Corpuscular Hemoglobin Concent 30.2 L Red Cell Distribution Width 15.3 H Platelet Count 449 H Mean Platelet Volume 12.0 H Neutrophils % Lymphocytes % Monocytes % Eosinophils % Basophils % Nucleated Red Blood Cells % Neutrophils # Lymphocytes # Monocytes # Eosinophils # Basophils # Nucleated Red Blood Cells # Medications Medications Current Medications Norepinephrine/ Dextrose (Levophed/D5W) 500 ml @ 0 mls/hr TITRATE IV Last administered on 04/14/17 10:24; Admin Dose 18.75 MLS/HR; Start 04/11/17 at 12:30 Aspirin (Aspirin) 325 mg DAILY NGT Last administered on 04/29/17 09:28; Admin Dose 325 MG; Start 04/12/17 at 09:00 Metoprolol Tartrate (Lopressor) 25 mg BID NGT Last administered on 04/29/17 20 :53; Admin Dose 25 MG; Start 04/11/17 at 21:00 Metoprolol Tartrate (Lopressor) 5 mg Q4H PRN IV HR>110 Hold SBP<110 Last administered on 04/20/17 17:36; Admin Dose 5 MG; Start 04/11/17 at 13:30 Lansoprazole 30 mg 30 mg DAILY GTB Last administered on 04/29/17 09:27; Admin Dose 30 MG; Start 04/12/17 at 09:00 Phenylephrine HCl/ Dextrose (Chuy-Syneph/D5W) 500 ml @ 0 mls/hr TITRATE IV Last administered on 04/12/17 02:52; Admin Dose 75 MLS/HR; Start 04/11/17 at 16:00 Miscellaneous Information 1 ea NOTE XX ; Start 04/11/17 at 16:30 Glucose (Glutose) 15 gm Q15M PRN PO DECREASED GLUCOSE; Start 04/11/17 at 16:30 Glucose (Glutose) 22.5 gm Q15M PRN PO DECREASED GLUCOSE; Start 04/11/17 at 16: 30 Dextrose (D50w Syringe) 25 ml Q15M PRN IV DECREASED GLUCOSE Last administered on 04/12/17 23:56; Admin Dose 25 ML; Start 04/11/17 at 16:30 Dextrose (D50w Syringe) 50 ml Q15M PRN IV DECREASED GLUCOSE; Start 04/11/17 at 16:30 Glucagon (Glucagen) 1 mg Q15M PRN IM DECREASED GLUCOSE; Start 04/11/17 at 16:30 Glucose 15 gm 15 gm Q15M PRN BUCCAL DECREASED GLUCOSE; Start 04/11/17 at 16:30 Midazolam HCl 50 ml @ 1 mls/hr TITRATE IV Last administered on 04/13/17 04:30; Admin Dose 2 MLS/HR; Start 04/11/17 at 23:30 Fentanyl (Sublimaze) 100 ml @ 0.5 mls/hr TITRATE IV Last administered on 02:48; Admin Dose 0.5 MLS/HR; Start 04/12/17 at 09:30 Metoclopramide HCl (Reglan) 10 mg Q6 IV Last administered on 04/30/17 05:50; Admin Dose 10 MG; Start 04/12/17 at 18:00 Insulin Aspart (Novolog Insulin Pen) NOVOLOG *MILD* ALGORI... Q6H SC Last administered on 04/30/17 05:59; Admin Dose 1 UNIT; Start 04/15/17 at 00:00 Metronidazole (Flagyl) 500 mg Q8 NGT Last administered on 04/30/17 05:50; Admin Dose 500 MG; Start 04/15/17 at 14:00 IV Flush (NS 10 ml) 10 ml PRN PRN IV FLUSH LINE; Start 04/15/17 at 13:00 Amiodarone HCl (Cordarone) 200 mg BID GTB Last administered on 04/29/17 20:42 ; Admin Dose 200 MG; Start 04/16/17 at 13:00 Enoxaparin Sodium (Lovenox) 40 mg HS SC Last administered on 04/17/17 20:38; Admin Dose 40 MG; Start 04/17/17 at 21:00; Status Future Hold Heparin Sodium (Porcine) (Heparin (5000 Units/0.5 ml)) 5,000 unit BID SC Last administered on 04/29/17 21:26; Admin Dose 5,000 UNIT; Start 04/18/17 at 16:22 Acetaminophen/ Hydrocodone Bitart ([place] (5/325)) 2 tab Q4H PRN NGT MODERATE PAIN LEVEL 4-6 Last administered on 04/28/17 21:36; Admin Dose 2 TAB; Start 04/18/17 at 17:30 Citalopram Hydrobromide (Celexa) 20 mg DAILY NGT Last administered on 09:31; Admin Dose 20 MG; Start 04/19/17 at 09:00 Hydralazine HCl 20 mg 20 mg Q6H PRN IV sbp ABOVE 160 Last administered on 22:40; Admin Dose 20 MG; Start 04/18/17 at 18:30 Caspofungin/ Sodium Chloride ([place]anc[place]/NS) 250 ml @ 250 mls/hr Q24H IV Last administered on 04/29/17 09:35; Admin Dose 250 MLS/HR; Start 04/21/17 at 10:00 Chlorhexidine Gluconate (Peridex) 15 ml BID MT Last administered on 04/29/17 20:42; Admin Dose 15 ML; Start 04/22/17 at 21:00 Vitamin A/Vitamin D (Vitamin A & D Oint) 1 applic TID TOP Last administered on 04/29/17 20:53; Admin Dose 1 APPLIC; Start 04/22/17 at 21:00 Vitamin A/Vitamin D (Vitamin A & D Oint) 1 applic TID PRN TOP DRYNESS Last administered on 04/22/17 15:29; Admin Dose 1 APPLIC; Start 04/22/17 at 15:00 Acetaminophen/ Hydrocodone Bitart (Lexa (5/325)) 1 tab Q6H GTB Last administered on 04/29/17 16:30; Admin Dose 1 TAB; Start 04/22/17 at 21:30 Valacyclovir HCl (Valtrex) 500 mg BID PO Last administered on 04/29/17 20:42; Admin Dose 500 MG; Start 04/24/17 at 21:00; Stop 05/01/17 at 21:59 Spironolactone (Aldactone) 25 mg DAILY NGT Last administered on 04/29/17 09:28 ; Admin Dose 25 MG; Start 04/25/17 at 19:00 Hydrocortisone (Solu-Cortef) 25 mg BID IV Last administered on 04/29/17 20:43 ; Admin Dose 25 MG; Start 04/29/17 at 09:00 Diltiazem HCl 5 mg 5 mg Q1H PRN IV HEART RATE GREATER THAN 120 Last administered on 04/29/17 06:17; Admin Dose 5 MG; Start 04/29/17 at 05:00 Amiodarone HCl/ Dextrose (Cordarone Iv/ D5W) 500 ml @ 16.66 mls/ hr Q24H IV Last administered on 04/29/17t 14:07; Admin Dose 16.66 MLS/HR; Start 04/29/17 at 14:01; Stop 04/30/17 at 08:00 NINA MACIEL DO Apr 30, 2017 07:08
--- NOTE | 2017-04-30 07:19 | PN ---
Date/Time of Note Date/Time of Note DATE: 04/30/17 TIME: 07:16 Assessment/Plan VTE Prophylaxis VTE Prophylaxis Intervention: other Lines/Catheters IV Catheter Type (from Nrs): PICC Line Central line still needed: Yes Urinary Cath still in place: Yes Reason Cath still needed: other (indicate) Assessment/Plan Chief Complaint/Hosp Course 1. acute on chronic hypoxemic respiratory failure: CURRENTLY EXTUBATED. 2. NSTEMI: due to demand ischemia. 3. CHF/ fluid overload: due to diastolic heart failure 4. moderate 5. Arrhythmia and P afib, frequent PVC: 6. ANEMIA 7. pneumonia, severe leukocytosis now. 8. s/p sepsis and shock: off of levophed drip now. 9. Anasarca cont ASA resp care as per PULM Team. correct lytes prn. cont ICU care. betablocker as long as BP is stable and is able to tolerate it. thyroid supplement . will closely monitor in ICU. will cont po amiodarone. cont lasix IV . ALDACTONE Problems: Subjective 24 Hr Interval Summary Free Text/Dictation CARDIOLOGY FOLLOW UP: D/W staff , and rhythm was reviewed. pt has remained in NSR overnight on amiodarone drip Pt is extubated now but is being monitored closely in ICU no reports of any chest pain or pressure. no reports of any palpitations d./w pt with poor hearing again Objective: General: Extubated but in resp distress HEENT: NC/AT. . oropharynx with lesions. NECK: NO JVD. no stridor. s/p previous trach with dressing covering it. CV: RRR. systolic ejection murmur; no gallop or rubs. PULM: + diffuse rhonchi. GI: SOFT, NT, ND, no rebound or guarding s/p PEG Extremity: 2+ B/L LE edema. no clubbing. neuro: opens her eye and follows command Psych: calm rectal: deferred Derm: multiple echymosis Exam/Review of Systems Vital Signs Vitals Vital Signs Date Time Temp Pulse Resp B/P Pulse Ox O2 Delivery O2 Flow Rate FiO2 04/30/17 04:26 Nasal Cannula 3.0 04/30/17 04:00 97.8 96 12 147/66 100 04/26/17 13:30 30 Intake and Output 04/29/17 04/29/1717 15:00 23:00 07:00 Intake Total 449.98 ml 1457 ml 1400 ml Output Total 700 ml 750 ml Balance 449.98 ml 757 ml 650 ml Results Result Diagram: 04/30/17 0543 04/29/17 0430 Results 24 hrs Laboratory Tests Test 04/29/17 12:20 04/29/17 17:28 04/30/17 01:57 04/30/17 05:22 Bedside Glucose 159 156 177 143 Test 04/30/17 05:43 White Blood Count 30.9 #H Red Blood Count 2.60 L Hemoglobin 8.9 L Hematocrit 29.5 L Mean Corpuscular Volume 113.5 H Mean Corpuscular Hemoglobin 34.2 H Mean Corpuscular Hemoglobin Concent 30.2 L Red Cell Distribution Width 15.3 H Platelet Count 449 H Mean Platelet Volume 12.0 H Neutrophils % Lymphocytes % Monocytes % Eosinophils % Basophils % Nucleated Red Blood Cells % Neutrophils # Lymphocytes # Monocytes # Eosinophils # Basophils # Nucleated Red Blood Cells # Medications Medications Current Medications Norepinephrine/ Dextrose (Levophed/D5W) 500 ml @ 0 mls/hr TITRATE IV Last administered on 04/14/17 10:24; Admin Dose 18.75 MLS/HR; Start 04/11/17 at 12:30 Aspirin (Aspirin) 325 mg DAILY NGT Last administered on 04/29/17 09:28; Admin Dose 325 MG; Start 04/12/17 at 09:00 Metoprolol Tartrate (Lopressor) 25 mg BID NGT Last administered on 04/29/17 20 :53; Admin Dose 25 MG; Start 04/11/17 at 21:00 Metoprolol Tartrate (Lopressor) 5 mg Q4H PRN IV HR>110 Hold SBP<110 Last administered on 04/20/17 17:36; Admin Dose 5 MG; Start 04/11/17 at 13:30 Lansoprazole 30 mg 30 mg DAILY GTB Last administered on 04/29/17 09:27; Admin Dose 30 MG; Start 04/12/17 at 09:00 Phenylephrine HCl/ Dextrose (Chuy-Syneph/D5W) 500 ml @ 0 mls/hr TITRATE IV Last administered on 04/12/17 02:52; Admin Dose 75 MLS/HR; Start 04/11/17 at 16:00 Miscellaneous Information 1 ea NOTE XX ; Start 04/11/17 at 16:30 Glucose (Glutose) 15 gm Q15M PRN PO DECREASED GLUCOSE; Start 04/11/17 at 16:30 Glucose (Glutose) 22.5 gm Q15M PRN PO DECREASED GLUCOSE; Start 04/11/17 at 16: 30 Dextrose (D50w Syringe) 25 ml Q15M PRN IV DECREASED GLUCOSE Last administered on 04/12/17 23:56; Admin Dose 25 ML; Start 04/11/17 at 16:30 Dextrose (D50w Syringe) 50 ml Q15M PRN IV DECREASED GLUCOSE; Start 04/11/17 at 16:30 Glucagon (Glucagen) 1 mg Q15M PRN IM DECREASED GLUCOSE; Start 04/11/17 at 16:30 Glucose 15 gm 15 gm Q15M PRN BUCCAL DECREASED GLUCOSE; Start 04/11/17 at 16:30 Midazolam HCl 50 ml @ 1 mls/hr TITRATE IV Last administered on 04/13/17 04:30; Admin Dose 2 MLS/HR; Start 04/11/17 at 23:30 Fentanyl (Sublimaze) 100 ml @ 0.5 mls/hr TITRATE IV Last administered on 02:48; Admin Dose 0.5 MLS/HR; Start 04/12/17 at 09:30 Metoclopramide HCl (Reglan) 10 mg Q6 IV Last administered on 04/30/17 05:50; Admin Dose 10 MG; Start 04/12/17 at 18:00 Insulin Aspart (Novolog Insulin Pen) NOVOLOG *MILD* ALGORI... Q6H SC Last administered on 04/30/17 05:59; Admin Dose 1 UNIT; Start 04/15/17 at 00:00 Metronidazole (Flagyl) 500 mg Q8 NGT Last administered on 04/30/17 05:50; Admin Dose 500 MG; Start 04/15/17 at 14:00 IV Flush (NS 10 ml) 10 ml PRN PRN IV FLUSH LINE; Start 04/15/17 at 13:00 Amiodarone HCl (Cordarone) 200 mg BID GTB Last administered on 04/29/17 20:42 ; Admin Dose 200 MG; Start 04/16/17 at 13:00 Enoxaparin Sodium (Lovenox) 40 mg HS SC Last administered on 04/17/17 20:38; Admin Dose 40 MG; Start 04/17/17 at 21:00; Status Future Hold Heparin Sodium (Porcine) (Heparin (5000 Units/0.5 ml)) 5,000 unit BID SC Last administered on 04/29/17 21:26; Admin Dose 5,000 UNIT; Start 04/18/17 at 16:22 Acetaminophen/ Hydrocodone Bitart ([place] (5/325)) 2 tab Q4H PRN NGT MODERATE PAIN LEVEL 4-6 Last administered on 04/28/17 21:36; Admin Dose 2 TAB; Start 04/18/17 at 17:30 Citalopram Hydrobromide (Celexa) 20 mg DAILY NGT Last administered on 09:31; Admin Dose 20 MG; Start 04/19/17 at 09:00 Hydralazine HCl 20 mg 20 mg Q6H PRN IV sbp ABOVE 160 Last administered on 22:40; Admin Dose 20 MG; Start 04/18/17 at 18:30 Caspofungin/ Sodium Chloride (Cancidas/NS) 250 ml @ 250 mls/hr Q24H IV Last administered on 04/29/17 09:35; Admin Dose 250 MLS/HR; Start 04/21/17 at 10:00 Chlorhexidine Gluconate (Peridex) 15 ml BID MT Last administered on 04/29/17 20:42; Admin Dose 15 ML; Start 04/22/17 at 21:00 Vitamin A/Vitamin D (Vitamin A & D Oint) 1 applic TID TOP Last administered on 04/29/17 20:53; Admin Dose 1 APPLIC; Start 04/22/17 at 21:00 Vitamin A/Vitamin D (Vitamin A & D Oint) 1 applic TID PRN TOP DRYNESS Last administered on 04/22/17 15:29; Admin Dose 1 APPLIC; Start 04/22/17 at 15:00 Acetaminophen/ Hydrocodone Bitart ([place] (5/325)) 1 tab Q6H GTB Last administered on 04/29/17 16:30; Admin Dose 1 TAB; Start 04/22/17 at 21:30 Valacyclovir HCl (Valtrex) 500 mg BID PO Last administered on 04/29/17 20:42; Admin Dose 500 MG; Start 04/24/17 at 21:00; Stop 05/01/17 at 21:59 Spironolactone (Aldactone) 25 mg DAILY NGT Last administered on 04/29/17 09:28 ; Admin Dose 25 MG; Start 04/25/17 at 19:00 Hydrocortisone (Solu-Cortef) 25 mg BID IV Last administered on 04/29/17 20:43 ; Admin Dose 25 MG; Start 04/29/17 at 09:00 Diltiazem HCl 5 mg 5 mg Q1H PRN IV HEART RATE GREATER THAN 120 Last administered on 04/29/17 06:17; Admin Dose 5 MG; Start 04/29/17 at 05:00 Amiodarone HCl/ Dextrose (Cordarone Iv/ D5W) 500 ml @ 16.66 mls/ hr Q24H IV Last administered on 04/29/17 14:07; Admin Dose 16.66 MLS/HR; Start 04/29/17 at 14:01; Stop 04/30/17 at 08:00 Metolazone (Zaroxolyn) 2.5 mg ONCE ONCE PO ; Start 04/30/17 at 07:30; Stop at 07:31; Status FRANCISCO BALL MD Apr 30, 2017 07:19
[2017-04-30 07:26] LABS: THYROID STIMULATING HORMONE 12.3 MIU/L (0.465-4.680)
[2017-04-30] MEDS ORDERED: METOLAZONE 2.5 MG TAB PO ONE (08:00)
[2017-04-30] MEDS: LEVOTHYROXINE 75 MCG TAB GTB SCH (08:10)
[2017-04-30] MEDS: SPIRONOLACTONE 25 MG TAB NGT SCH (08:43)
[2017-04-30] MEDS: CITALOPRAM 20 MG TAB NGT SCH (08:43)
[2017-04-30] MEDS: LANSOPRAZOLE 30 MG CAP GTB SCH (08:43)
[2017-04-30] MEDS: ASPIRIN 325 MG TAB NGT SCH (08:43)
[2017-04-30] MEDS: HYDROCORTISONE 100 MG INJ IV SCH ×2 (08:43→21:00)
[2017-04-30] MEDS: AMIODARONE 200 MG TAB GTB SCH ×2 (08:43→21:01)
[2017-04-30] MEDS: CHLORHEXIDINE GLUCONATE 15 ML UD CUP MT SCH ×2 (08:43→20:59)
[2017-04-30] MEDS: METOPROLOL 25 MG TAB NGT SCH (08:44)
[2017-04-30] MEDS: VALACYCLOVIR 500 MG TAB PO SCH (08:44)
[2017-04-30] MEDS: VITAMIN A & D 5 GM OINT PACKET TOP SCH ×3 (08:44→21:00)
[2017-04-30] MEDS: HEPARIN 5,000 UNIT/0.5 ML VIAL SC SCH ×2 (08:45→21:03)
--- NOTE | 2017-04-30 08:45 | PN ---
Date/Time of Note Date/Time of Note DATE: 04/30/17 TIME: 08:37 Assessment/Plan Lines/Catheters IV Catheter Type (from [facility]): PICC Line Latif in Place (from [facility]): Yes Assessment/Plan Chief Complaint/Hosp Course 1. Cholelithiasis ? cholecystitis: Ct abd: sludge and small stones in the gallbladder. No gallbladder wall thickening is noted with some pericholecystic fluid is present. Patient off pressors; GT/OGT no output; HIDA positive; IR drain placement cancelled by radiologist since US without evidence of infection. Therefore, Dr. Guadalupe believes the HIDA is false positive. Tolerating tube feeds; no abdominal pain/discomfort; LFT's nl -No surgical intervention required at this time 2. Pneumonia: Recurrent; no fevers; intubated; less secretion sputum cx: PSEUDOMONAS AERUGINOSA, K PNEUMO ESBL, NASRIN GLABRATA; appears comfortable;on nasal canula -pulmonary toilet -abx per ID 3. Vent dependent respiratory failure: 2/2 aspiration PNA+ CHF;reintubated, coded 04/21; extubated -as above 4. Septic shock: improved -on abx -supportive 5. Uncontrolled Afib: s/p amiodarone drip, on oral amiodarone; episodes of Afib Now SR -medical optimization -lovenox 6. Elevated troponin:NSTEMI; septic shock/demand ischemia -trend 7. Leukocytosis with lactic acidosis: 2/2 pneumonia vs. steroids vs.fungemia vs other (urine, repeat blood cultures negative);wbc increasing -abx, antifungals -judicious fluid management -supportive measures 8. KEYONNA: likely 2/2 septic shock; s/p code; cr up -judicious fluid management -avoid nephrotoxic agents 9. CHF: BNP elevated -judicious fluid management -medical optimization 10. Adrenal Insufficiency -solucortef 11. Hypomagnesemia: normalized -electrolyte optimization -monitor for cardiac abnormalities 12. Hypothyroidism; tsh elevated -on synthroid 13. Macrocytic anemia: chronic vs. dilutional vs. acute bleed vs. b12/folate deficiency; h/h stable -monitor -Transfuse as needed 14. Transaminitis: likely 2/2 septic shock vs. cholecystitis; normalized -trend, monitor 15. Diarrhea: 2/2 abx vs. enteritis: resolved; tolerating tf -? probiotics 16. Thrombocytosis: 2/2 inflammatory vs. drug induced vs. other -monitor -bleeding precautions -supportive 17. Encephalopathy: 2/2 toxic metabolic vs. anoxic injury; CT: No acute intracranial hemorrhage or mass effect. Mild chronic microvascular disease and intracranial atherosclerosis; more alert and communicative; EEG shows no seizure activity -supportive 18. Bilateral upper extremity edema: likely 2/2 decreased movement vs. thrombosis; initial doppler negative, repeat doppler left arm (+) Thrombus -elevate extremities -supportive -anticoagulation 19. Hypoalbuminemia: 2/2 malnutrition +/- inflammation; decreased; tolerating tf ; -nutrition optimization -as above 20 Hypernatremia: improving -judicious fluid management 21. Hypocalcemia:normalized -optimize nutrition 22. Fungemia -antifungals Patient seen and examined in collaboration with Dr. Justus Antonio Problems: Subjective 24 Hr Interval Summary Feels well. sleepy but easily wakes. Responsive. +bowel function, tolerating tf. Comfortable on nasal cannula. No abdominal pain/discomfort. No fevers, chills, n/v/d, sob, cp, palpitations, metzger, dizziness, sz Exam/Review of Systems Vital Signs Vitals Vital Signs Date Time Temp Pulse Resp B/P Pulse Ox O2 Delivery O2 Flow Rate FiO2 04/30/17 08:06 98 18 100 Nasal Cannula 2.0 04/30/17 04:00 97.8 147/66 04/26/17 13:30 30 Intake and Output 04/29/17 04/29/17 04/30/17 15:00 23:00 07:00 Intake Total 449.98 ml 1457 ml 1400 ml Output Total 700 ml 750 ml Balance 449.98 ml 757 ml 650 ml Exam Free Text/Dictation Constitutional: Awake, appears comfortable Head: atraumatic, normocephalic Eyes: PERRL, nl lids, nl sclera ENMT: No mucosa pink and moist (pink and moist with dried lesions) Neck: non-tender, supple Respiratory: diminished, comfortable, on nasal canula Cardiovascular: nl pulses, regular rate and rhythm, NSR, Gastrointestinal: soft, GT tubes site no erythema, no drainage, non tenderness, bowel sounds x 4 quads Genitourinary - Female: nl external genitalia Musculoskeletal: nl extremities to inspection Extremities: normal pulses, bilateral upper/lower extremity edema Neurological: responsive Skin: nl turgor, No rash or lesions Lymph: nl lymph nodes Results Result Diagram: 04/30/17 0543 04/30/17 0543 ADDISON FREGOSO NP Apr 30, 2017 08:44
[2017-04-30] MEDS: CASPOFUNGIN 50 MG in NS 250 ML IV SCH (09:46)
--- NOTE | 2017-04-30 10:38 | CONS ---
Date/Time of Note Date/Time of Note DATE: 04/30/17 TIME: 10:35 Assessment/Plan Assessment/Plan Chief Complaint/Hosp Course No acute changes overnight. Patient is awake, looks comfortable, denies pain Temperature 97 pulse 103 respirations 20 blood pressure 133/67 saturation 100 on 2 L nasal cannula WBC 30.9 H&H 8.9 29.5 platelets 449 BN 84 creatinine 1.23 Microbiology blood culture on April 24 negative Antibiotics: Cancidas Valtrex Flagyl indwelling: PEG, Latif, PICC line Physical examination: Well-developed fragile chronically ill-appearing elderly woman who is in no distress. Head atraumatic, normocephalic sclera nonicteric. Neck is supple. Chest rise symmetrical breath sounds with scattered rhonchi. Abdomen soft, bowel tones present. Extremities with bilateral edema. Skin: Positive for anasarca Assessment: 1. Persistent leukocytosis rule out ongoing aspiration 2. Fungemia secondary to #2 3. Resolving pneumonia with repeat sputum culture growing yeast 4. Status post septic shock 5. Acute on chronic respiratory failure, status post extubated 6 . History of tongue cancer 7. Gallstones, no evidence of cholecystitis 8. History of C. difficile colitis 9. Oral lesions, likely secondary to endotracheal tube, on empiric Valtrex 10. Arrhythmia and non-ST elevation MS Plan: Hemodynamically stable, increased leukocytosis is concerning, will restart meropenem, repeat blood and urine cultures, follow chest x-ray, check pro-calcitonin level, follow recommendations of consultants Discussed with staff/ Problems: Consultation Date/Type/Reason Admit Date/Time Apr 11, 2017 at 11:28 Initial Consult Date 04/12/17 Type of Consultation: ID Referring Provider: NINA MACIEL DO Exam/Review of Systems Vital Signs Vitals Vital Signs Date Time Temp Pulse Resp B/P Pulse Ox O2 Delivery O2 Flow Rate FiO2 04/30/17 10:00 92 25 110/93 100 Nasal Cannula 2.0 04/30/17 08:00 96.8 04/26/17 13:30 30 Intake and Output 04/29/17 04/29/17 04/30/17 15:00 23:00 07:00 Intake Total 449.98 ml 1457 ml 1450 ml Output Total 700 ml 815 ml Balance 449.98 ml 757 ml 635 ml Results Result Diagram: 04/30/17 0543 04/30/17 0543 Results 24 hrs Laboratory Tests Test 04/29/17 12:20 04/29/17 17:28 04/30/17 01:57 04/30/17 05:22 Bedside Glucose 159 156 177 143 Test 04/30/17 05:43 White Blood Count 30.9 #H Red Blood Count 2.60 L Hemoglobin 8.9 L Hematocrit 29.5 L Mean Corpuscular Volume 113.5 H Mean Corpuscular Hemoglobin 34.2 H Mean Corpuscular Hemoglobin Concent 30.2 L Red Cell Distribution Width 15.3 H Platelet Count 449 H Mean Platelet Volume 12.0 H Neutrophils % Lymphocytes % Monocytes % Eosinophils % Basophils % Nucleated Red Blood Cells % Neutrophils # Lymphocytes # Monocytes # Eosinophils # Basophils # Nucleated Red Blood Cells # Sodium Level 149 H Potassium Level 5.1 Chloride Level 107 Carbon Dioxide Level 32 H Anion Gap 15 Blood Urea Nitrogen 84 H Creatinine 1.23 H Glucose Level 129 Calcium Level 8.7 Phosphorus Level 4.7 Magnesium Level 2.3 Total Bilirubin 0.0 L Direct Bilirubin 0.00 Indirect Bilirubin 0.0 Aspartate Amino Transf (AST/SGOT) 34 Alanine Aminotransferase (ALT/SGPT) 38 Alkaline Phosphatase 93 B-Type Natriuretic Peptide 5750 H Total Protein 5.1 L Albumin 2.4 L Globulin 2.70 Albumin/Globulin Ratio 0.88 Thyroid Stimulating Hormone (TSH) 12.300 H Free Thyroxine 0.82 Digoxin Level < 0.4 L Medications Medications Current Medications Aspirin (Aspirin) 325 mg DAILY NGT Last administered on 04/30/17 08:43; Admin Dose 325 MG; Start 04/12/17 at 09:00 Metoprolol Tartrate (Lopressor) 25 mg BID NGT Last administered on 04/30/17 08 :44; Admin Dose 25 MG; Start 04/11/17 at 21:00 Metoprolol Tartrate (Lopressor) 5 mg Q4H PRN IV HR>110 Hold SBP<110 Last administered on 04/20/17 17:36; Admin Dose 5 MG; Start 04/11/17 at 13:30 Lansoprazole (Prevacid) 30 mg DAILY GTB Last administered on 04/30/17 08:43; Admin Dose 30 MG; Start 04/12/17 at 09:00 Miscellaneous Information 1 ea NOTE XX ; Start 04/11/17 at 16:30 Glucose (Glutose) 15 gm Q15M PRN PO DECREASED GLUCOSE; Start 04/11/17 at 16:30 Glucose (Glutose) 22.5 gm Q15M PRN PO DECREASED GLUCOSE; Start 04/11/17 at 16: 30 Dextrose (D50w Syringe) 25 ml Q15M PRN IV DECREASED GLUCOSE Last administered on 04/12/17 23:56; Admin Dose 25 ML; Start 04/11/17 at 16:30 Dextrose (D50w Syringe) 50 ml Q15M PRN IV DECREASED GLUCOSE; Start 04/11/17 at 16:30 Glucagon (Glucagen) 1 mg Q15M PRN IM DECREASED GLUCOSE; Start 04/11/17 at 16:30 Glucose (Glutose) 15 gm Q15M PRN BUCCAL DECREASED GLUCOSE; Start 04/11/17 at 16 :30 Metoclopramide HCl (Reglan) 10 mg Q6 IV Last administered on 04/30/17 05:50; Admin Dose 10 MG; Start 04/12/17 at 18:00 Insulin Aspart (Novolog Insulin Pen) NOVOLOG *MILD* ALGORI... Q6H SC Last administered on 04/30/17 05:59; Admin Dose 1 UNIT; Start 04/15/17 at 00:00 Metronidazole (Flagyl) 500 mg Q8 NGT Last administered on 04/30/17 05:50; Admin Dose 500 MG; Start 04/15/17 at 14:00 IV Flush (NS 10 ml) 10 ml PRN PRN IV FLUSH LINE; Start 04/15/17 at 13:00 Amiodarone HCl (Cordarone) 200 mg BID GTB Last administered on 04/30/17 08:43 ; Admin Dose 200 MG; Start 04/16/17 at 13:00 Enoxaparin Sodium (Lovenox) 40 mg HS SC Last administered on 04/17/17 20:38; Admin Dose 40 MG; Start 04/17/17 at 21:00; Status Future Hold Heparin Sodium (Porcine) (Heparin (5000 Units/0.5 ml)) 5,000 unit BID SC Last administered on 04/30/17 08:45; Admin Dose 5,000 UNIT; Start 04/18/17 at 16:22 Citalopram Hydrobromide (Celexa) 20 mg DAILY NGT Last administered on 08:43; Admin Dose 20 MG; Start 04/19/17 at 09:00 Hydralazine HCl 20 mg 20 mg Q6H PRN IV sbp ABOVE 160 Last administered on 22:40; Admin Dose 20 MG; Start 04/18/17 at 18:30 Caspofungin/ Sodium Chloride (Cancidas/NS) 250 ml @ 250 mls/hr Q24H IV Last administered on 04/30/17 09:46; Admin Dose 250 MLS/HR; Start 04/21/17 at 10:00 Chlorhexidine Gluconate (Peridex) 15 ml BID MT Last administered on 04/30/17 08:43; Admin Dose 15 ML; Start 04/22/17 at 21:00 Vitamin A/Vitamin D (Vitamin A & D Oint) 1 applic TID TOP Last administered on 04/30/17 08:44; Admin Dose 1 APPLIC; Start 04/22/17 at 21:00 Vitamin A/Vitamin D (Vitamin A & D Oint) 1 applic TID PRN TOP DRYNESS Last administered on 04/22/17 15:29; Admin Dose 1 APPLIC; Start 04/22/17 at 15:00 Acetaminophen/ Hydrocodone Bitart ([place] (5/325)) 1 tab Q6H GTB Last administered on 04/30/17 08:52; Admin Dose 1 TAB; Start 04/22/17 at 21:30 Valacyclovir HCl (Valtrex) 500 mg BID PO Last administered on 04/30/17 08:44; Admin Dose 500 MG; Start 04/24/17 at 21:00; Stop 05/01/17 at 21:59 Spironolactone (Aldactone) 25 mg DAILY NGT Last administered on 04/30/17 08:43 ; Admin Dose 25 MG; Start 04/25/17 at 19:00 Hydrocortisone (Solu-Cortef) 25 mg BID IV Last administered on 04/30/17 08:43 ; Admin Dose 25 MG; Start 04/29/17 at 09:00 Diltiazem HCl (Cardizem Iv) 5 mg Q1H PRN IV HEART RATE GREATER THAN 120 Last administered on 04/29/17 06:17; Admin Dose 5 MG; Start 04/29/17 at 05:00 LORETO MCKEON NP Apr 30, 2017 10:38
--- NOTE | 2017-04-30 11:07 | CONS ---
Date/Time of Note Date/Time of Note DATE: 04/30/17 TIME: 11:05 Consult Date/Type/Reason Admit Date/Time Apr 11, 2017 at 11:28 Initial Consult Date 04/12/17 Type of Consultation: Pulmonary Ordering Provider: NINA MACIEL DO Subjective Patient comfortable this morning awake and alert. Objective Vital Signs Date Time Temp Pulse Resp B/P Pulse Ox O2 Delivery O2 Flow Rate FiO2 04/30/17 10:00 92 25 110/93 100 Nasal Cannula 2.0 04/30/17 08:00 96.8 04/26/17 13:30 30 Intake and Output 04/29/17 04/29/17 04/30/17 14:59 22:59 06:59 Intake Total 449.98 ml 1457 ml 1400 ml Output Total 700 ml 750 ml Balance 449.98 ml 757 ml 650 ml Exam GENERAL: Chronically ill-appearing elderly lady on nasal cannula oxygen VITAL SIGNS: per chart NECK: Supple. No JVD or lymphadenopathy. Stoma site has dressing in place CARDIAC EXAM: S1, S2. No added sounds or murmurs. CHEST: Diminished air entry bilaterally poor effort ABDOMEN: Soft, nontender. No guarding or rebound. EXTREMITIES: No cyanosis, clubbing edema +2 NEUROLOGIC: Generalized weakness. Results/Medications Result Diagram: 04/30/17 0543 04/30/17 0543 Results 24 hrs Laboratory Tests Test 04/29/17 12:20 04/29/17 17:28 04/30/17 01:57 04/30/17 05:22 Bedside Glucose 159 156 177 143 Test 04/30/17 05:43 White Blood Count 30.9 #H Red Blood Count 2.60 L Hemoglobin 8.9 L Hematocrit 29.5 L Mean Corpuscular Volume 113.5 H Mean Corpuscular Hemoglobin 34.2 H Mean Corpuscular Hemoglobin Concent 30.2 L Red Cell Distribution Width 15.3 H Platelet Count 449 H Mean Platelet Volume 12.0 H Neutrophils % Lymphocytes % Monocytes % Eosinophils % Basophils % Nucleated Red Blood Cells % Neutrophils # Lymphocytes # Monocytes # Eosinophils # Basophils # Nucleated Red Blood Cells # Sodium Level 149 H Potassium Level 5.1 Chloride Level 107 Carbon Dioxide Level 32 H Anion Gap 15 Blood Urea Nitrogen 84 H Creatinine 1.23 H Glucose Level 129 Calcium Level 8.7 Phosphorus Level 4.7 Magnesium Level 2.3 Total Bilirubin 0.0 L Direct Bilirubin 0.00 Indirect Bilirubin 0.0 Aspartate Amino Transf (AST/SGOT) 34 Alanine Aminotransferase (ALT/SGPT) 38 Alkaline Phosphatase 93 B-Type Natriuretic Peptide 5750 H Total Protein 5.1 L Albumin 2.4 L Globulin 2.70 Albumin/Globulin Ratio 0.88 Thyroid Stimulating Hormone (TSH) 12.300 H Free Thyroxine 0.82 Digoxin Level < 0.4 L Medications Current Medications Aspirin (Aspirin) 325 mg DAILY NGT Last administered on 04/30/17 08:43; Admin Dose 325 MG; Start 04/12/17 at 09:00 Metoprolol Tartrate (Lopressor) 25 mg BID NGT Last administered on 04/30/17 08 :44; Admin Dose 25 MG; Start 04/11/17 at 21:00 Metoprolol Tartrate (Lopressor) 5 mg Q4H PRN IV HR>110 Hold SBP<110 Last administered on 04/20/17 17:36; Admin Dose 5 MG; Start 04/11/17 at 13:30 Lansoprazole (Prevacid) 30 mg DAILY GTB Last administered on 04/30/17 08:43; Admin Dose 30 MG; Start 04/12/17 at 09:00 Miscellaneous Information 1 ea NOTE XX ; Start 04/11/17 at 16:30 Glucose (Glutose) 15 gm Q15M PRN PO DECREASED GLUCOSE; Start 04/11/17 at 16:30 Glucose (Glutose) 22.5 gm Q15M PRN PO DECREASED GLUCOSE; Start 04/11/17 at 16: 30 Dextrose (D50w Syringe) 25 ml Q15M PRN IV DECREASED GLUCOSE Last administered on 04/12/17 23:56; Admin Dose 25 ML; Start 04/11/17 at 16:30 Dextrose (D50w Syringe) 50 ml Q15M PRN IV DECREASED GLUCOSE; Start 04/11/17 at 16:30 Glucagon (Glucagen) 1 mg Q15M PRN IM DECREASED GLUCOSE; Start 04/11/17 at 16:30 Glucose (Glutose) 15 gm Q15M PRN BUCCAL DECREASED GLUCOSE; Start 04/11/17 at 16 :30 Metoclopramide HCl (Reglan) 10 mg Q6 IV Last administered on 04/30/17 05:50; Admin Dose 10 MG; Start 04/12/17 at 18:00 Insulin Aspart (Novolog Insulin Pen) NOVOLOG *MILD* ALGORI... Q6H SC Last administered on 04/30/17 05:59; Admin Dose 1 UNIT; Start 04/15/17 at 00:00 Metronidazole (Flagyl) 500 mg Q8 NGT Last administered on 04/30/17 05:50; Admin Dose 500 MG; Start 04/15/17 at 14:00 IV Flush (NS 10 ml) 10 ml PRN PRN IV FLUSH LINE; Start 04/15/17 at 13:00 Amiodarone HCl (Cordarone) 200 mg BID GTB Last administered on 04/30/17 08:43 ; Admin Dose 200 MG; Start 04/16/17 at 13:00 Enoxaparin Sodium (Lovenox) 40 mg HS SC Last administered on 04/17/17 20:38; Admin Dose 40 MG; Start 04/17/17 at 21:00; Status Future Hold Heparin Sodium (Porcine) (Heparin (5000 Units/0.5 ml)) 5,000 unit BID SC Last administered on 04/30/17 08:45; Admin Dose 5,000 UNIT; Start 04/18/17 at 16:22 Citalopram Hydrobromide (Celexa) 20 mg DAILY NGT Last administered on 08:43; Admin Dose 20 MG; Start 04/19/17 at 09:00 Hydralazine HCl 20 mg 20 mg Q6H PRN IV sbp ABOVE 160 Last administered on 22:40; Admin Dose 20 MG; Start 04/18/17 at 18:30 Caspofungin/ Sodium Chloride (Cancidas/NS) 250 ml @ 250 mls/hr Q24H IV Last administered on 04/30/17 09:46; Admin Dose 250 MLS/HR; Start 04/21/17 at 10:00 Chlorhexidine Gluconate (Peridex) 15 ml BID MT Last administered on 04/30/17 08:43; Admin Dose 15 ML; Start 04/22/17 at 21:00 Vitamin A/Vitamin D (Vitamin A & D Oint) 1 applic TID TOP Last administered on 04/30/17 08:44; Admin Dose 1 APPLIC; Start 04/22/17 at 21:00 Vitamin A/Vitamin D (Vitamin A & D Oint) 1 applic TID PRN TOP DRYNESS Last administered on 04/22/17 15:29; Admin Dose 1 APPLIC; Start 04/22/17 at 15:00 Acetaminophen/ Hydrocodone Bitart ([place] (5/325)) 1 tab Q6H GTB Last administered on 04/30/17 08:52; Admin Dose 1 TAB; Start 04/22/17 at 21:30 Valacyclovir HCl (Valtrex) 500 mg BID PO Last administered on 04/30/17 08:44; Admin Dose 500 MG; Start 04/24/17 at 21:00; Stop 05/01/17 at 21:59 Spironolactone (Aldactone) 25 mg DAILY NGT Last administered on 04/30/17 08:43 ; Admin Dose 25 MG; Start 04/25/17 at 19:00 Hydrocortisone (Solu-Cortef) 25 mg BID IV Last administered on 04/30/17 08:43 ; Admin Dose 25 MG; Start 04/29/17 at 09:00 Diltiazem HCl 5 mg 5 mg Q1H PRN IV HEART RATE GREATER THAN 120 Last administered on 04/29/17 06:17; Admin Dose 5 MG; Start 04/29/17 at 05:00 Meropenem/Sodium Chloride (Merrem 500mg/50 ml(Pmx)) 50 ml @ 200 mls/hr Q12 IVPB ; Start 04/30/17 at 12:00 Assessment/Plan Chief Complaint/Hosp Course IMP: 1. Status post septic Shock--likely due to multilobar aspiration pneumonia vs. HCAP possibly secondary to acute cholecystitis also. Progressive leukocytosis 2. Multifocal pneumonia aspiration vs.HCAP, persistent leukocytosis chest x-ray shows improved lung aeration. Chest x-ray shows pulmonary edema 3. Hypercapnic Respiratory Failure--likely due to critical illness now extubated again on nasal cannula 4. Status post lactic acidosis. 5. Demand Ischemia, atrial fibrillation with rapid ventricular rate 6. Cholecystitis stable, not for surgical intervention at present 7. Dysphagia continues tube feeding RECS: 1. Continue pulmonary toilet nasal cannula oxygen 2. Oral care. 3. Aspiration precautions. 4. Resume tube feeding 5. Continue antibiotics 6. Continue physical therapy 7. Surgical recommendations 8. Consider increasing free water. 9. Rate control per cardiology Critical care time 40 minutes. Case d/w RN and patient's Stable for transfer to telemetry front bed. Problems: DARWIN CRAWFORD MD, [facility] Apr 30, 2017 11:07
[2017-04-30 11:54] LABS: LYMPHOCYTES # 0.6 10^3/ul (0.8-2.9); MONOCYTE # 2.8 10^3/ul (0.3-0.9); NEUTROPHIL # 26.6 10^3/ul (1.6-7.5); POLYCHROMASIA 1+
[2017-04-30] MEDS: MEROPENEM 500MG/50 ML (PMX) 50 ML IVPB SCH ×2 (12:22→21:46)
[2017-04-30] MEDS ORDERED: morphine 10 MG INJ IM ONE (19:00)
[2017-04-30] MEDS ORDERED: FUROSEMIDE 40 MG INJ IV ONE (19:00)
[2017-04-30] MEDS ORDERED: morphine 2 MG INJ IV ONE (19:30)
--- NOTE | 2017-04-30 19:52 | RADRPT ---
PROCEDURE: XR Chest. CLINICAL INDICATION: Respiratory distress. TECHNIQUE: Portable AP erect view of the chest was obtained. COMPARISON: 01/12/2017 FINDINGS: The cardiomediastinal silhouette is mildly enlarged. Left lower lobe and lingular infiltrate cannot exclude pneumonia. Mild pulmonary vascular congestion is new compared to prior study with blunting of the costophrenic angles likely bilateral pleural effusions. Right-sided PICC is present the dis mayco tip projecting at the cavoatrial junction. The osseous structures are intact with no evidence f or acute abnormality. Postoperative clips in the right neck are again seen. Calcification is presen t within the aortic arch RPTAT:HJJR IMPRESSION: 1. New left lower lobe and lingular infiltrate compared to 01/12/2017 unable to exclude pneumonia. Correlation with leukocytosis is recommended. 2. Cardiac silhouette enlargement with mild pulmonary vascular congestion and small pleural effusio ns concerning for an element of congestive heart failure. 3. Right-sided PICC in good position. Physician Vincent Date Time Electronically viewed and signed by Physician Vincent on 04/30/2017 19:51 JR/
[2017-04-30] MEDS: METOPROLOL 25 MG TAB GTB SCH (21:01)
[2017-04-30] MEDS: metroNIDAZOLE 500 MG TAB GTB SCH (21:46)
[2017-04-30] MEDS: VALACYCLOVIR 500 MG TAB GTB SCH (21:46)
[2017-04-30] MEDS ORDERED: PIPER-TAZO 3.375 GM IV (PMX) 100 ML IVPB SCH (22:00)
[2017-05-01] VITALS (81 sets, daily range): BP systolic 35–160; BP diastolic 17–82; PULSE 52–121; RESP 7–32
[2017-05-01] MEDS ORDERED: NORepinephrine 8MG/250 ML (PMX 250 ML IV SCH (00:36)
[2017-05-01] MEDS ORDERED: EPINEPHrine 0.1 MG/ML SYG ONE (01:27)
[2017-05-01] MEDS ORDERED: NA BICARBONATE 8.4% 50 ML SYG ONE (01:44)
[2017-05-01] MEDS: DOPamine-D5W 1.6 MG/ML 250 ML IV SCH ×2 (02:00→07:07)
[2017-05-01] MEDS: LEVALBUTEROL (NEB) 0.63 MG/3 ML AMP HHN SCH (02:00)
[2017-05-01] MEDS ORDERED: DOPamine-D5W 1.6 MG/ML 250 ML ONE (02:03)
[2017-05-01 02:05] LABS: ADD SCAN DIFF NO
[2017-05-01 02:06] LABS: ABNORMAL IP MESSAGE 1; BASOPHILS % 0.1 % (0.0-2.0); EOSINOPHILS # 0.1 10^3/ul (0.0-0.5); EOSINOPHILS % 0.1 % (0.0-7.0); ERYTHROBLAST% (NRBC) (M) 0.3 /100WBC (0.0-0.0); HEMATOCRIT 20.9 % (37.0-47.0); LYMPHOCYTES # 3.9 10^3/ul (0.8-2.9); LYMPHOCYTES % 9.5 % (15.0-51.0); MEAN CORPUSCULAR HGB CONC 29.7 g/dl (32.0-37.0); MEAN CORPUSCULAR VOLUME 121.5 fl (82.0-101.0); MEAN PLATELET VOLUME 12.6 fl (7.4-10.4); MONOCYTE # 1.9 10^3/ul (0.3-0.9); MONOCYTES % 4.6 % (0.0-11.0); NEUTROPHIL # 33.7 10^3/ul (1.6-7.5); NEUTROPHILS % 81.9 % (39.0-77.0); NUCLEATED RED BLOOD CELLS # 0.1 10^3/ul (0.0-0.0); PLATELET COUNT 303 10^3/UL (140-415); RED BLOOD COUNT 1.72 10^6/ul (4.20-5.40); RED CELL DISTRIBUTION WIDTH 15.7 % (11.5-14.5); WHITE BLOOD COUNT 41.2 10^3/ul (4.8-10.8)
--- NOTE | 2017-05-01 02:14 | RADRPT ---
PROCEDURE: XR Chest. CLINICAL INDICATION: Respiratory failure. TECHNIQUE: Single frontal view of the chest. COMPARISON: Chest dated 04/30/2017 FINDINGS: Tracheostomy tube at midline. This is new over interval. Tip is about 44 mm above the sammy. Diffe rential considerations include endotracheal intubation. Right central venous line again seen with tip in the superior vena cava. A pair of transcutaneous ca rdiac pacing pads are seen over the mid lower and left lower chest. Bilateral patchy air space disease, greater in the right mid lung. Findings suggest a degree of nhan lure in setting of cardiac and respiratory failure. Interval resolution of previously seen left pleu ral effusion and left lung base atelectasis versus airspace disease. Small right pleural effusion i s likely present. No signs of pneumothorax are seen. The osseous structures and soft tissues are unremarkable. The stomach is distended with air. IMPRESSION: 1. Bilateral patchy air space disease, greatest in the right mid lung, new over the interval. 2. Interval resolution of previously seen left pleural effusion and left lung base atelectasis vers us airspace disease. 3. Small right pleural effusion is likely present. 4. The stomach is distended with air. 5. Tracheostomy tube versus endotracheal intubation, with tip about 44 mm above the sammy. RPTAT: [facility] Physician Erin Date Time Electronically viewed and signed by Physician Erin on 05/01/2017 02:14 RS/
[2017-05-01 02:21] LABS: HEMOGLOBIN 6.2 g/dl (12.0-16.0)
[2017-05-01 02:23] LABS: ALBUMIN 1.6 g/dl (3.3-4.9); CALCIUM 7.8 mg/dl (8.4-10.2); CREATININE 1.32 mg/dl (0.44-1.00); TOTAL PROTEIN 3.2 g/dl (6.1-8.1)
[2017-05-01] MEDS: ALBUMIN HUMAN 25% 100 ML IV SCH ×3 (02:24→17:44)
[2017-05-01 02:30] LABS: POTASSIUM 5.4 mmol/L (3.5-5.1)
[2017-05-01] MEDS ORDERED: DEXTROSE 5%-0.9% NACL 1,000 ML IV SCH (02:30)
[2017-05-01 02:39] LABS: Arterial Base Excess -2.1 mmol/L (-3.0-3); Arterial COHb 0.2 % (0.0-3.0); Arterial Fraction of Oxyhgb 86.1 % (93.0-99.0); Arterial HCO3 28.7 mmol/L (22.0-26.0); Arterial MetHb 0.7 % (0.0-1.5); Arterial Total Hemglobin 8.1 g/dl (12.0-18.0); Blood Gas Mean Airway Pressure 15; MODE VENT - AC
[2017-05-01] MEDS: VASOPRESSIN 60 UNIT in DEXTROSE 5% 57 ML IV SCH ×2 (02:48→14:30)
[2017-05-01] MEDS ORDERED: SOD CHLORIDE 0.9% 1,000 ML IV SCH ×2 (03:00→03:30)
[2017-05-01] MEDS ORDERED: HYDROCORTISONE 100 MG INJ IV ONE (03:00)
[2017-05-01] MEDS: HYDROCODONE/APAP (5/325) TAB GTB SCH ×4 (03:30→21:26)
--- NOTE | 2017-05-01 04:06 | EN ---
Date/Time of Note Date/Time of Note DATE: 05/01/17 TIME: 03:47 ER Progress Note This is 66-year-old female who was admitted for aspiration pneumonia and sepsis. He was called from the fifth floor to come to intubate the patient. Patient has apparently been intubated 3 times this week and extubated [address] Ayala was in the room along with nursing staff. Patient was being bagged by respiratory therapy. Patient was having spontaneous respirations with a pulse ox of 96%. Patient was given etomidate and succinylcholine for intubation. Endotracheal Intubation by me: Pre assessment performed. See preceding note for details. Pre-oxygenation performed with 100% oxygen RSI: Performed w/o complication or hypoxic events. Medications as ordered. Blade: [Mac 4, MAC 3, large Mckeon] ET Tube: [7.0] cm Depth: N/A Multiple attempts were made to try to intubate the patient however upon direct visualization there is severe edema to the larynx and epiglottis piriformis. Direct visualization of the vocal cords was impossible. I did see a small opening and passed a bougie into this however when the ET tube was threaded through there is not significant color change of the end-tidal CO2 and oxygenation did not rise, and there seemed to be breath sounds over the epigastric region. The tube was removed and we continued to bag the patient. The patient's oxygen level never dropped below 90. Yajaira severe edema was due to the multiple intubations over this past week. 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 At that time Dr. Ayala had decided to put the patient on BiPAP and go to the ICU with consultation with ENT for tracheostomy in the morning.. The patient tolerated the above procedure without any problems and was maintaining oxygenation and vital signs Return to the ER than a CODE BLUE was called approximately 10 minutes later. I arrived to the ICU and the patient was in active CPR and being bagged by respiratory therapy. He stated that the patient's oxygenation level started to decline and then she went into asystole. Dr. Ayala was at the bedside and was ordering medication according to ACLS protocol The patient had a oral airway and respiratory was backing the patient. This the patient was getting hard to bag. They are able to pass air through by squeezing on the Ambu bag, but it was slow going through. I then attempted to place a size 3 LMA airway. The area was placed by me and in proper position, however during bagging with the Ambu bag the air would just escape out of the mouth. I suspected there is a supraglottic swelling that was so severe that minimal air could be passed through The point I decided to do an emergent cricothyrotomy Emergent cricothyrotomy by me: Emergent cricothyrotomy kit was opened and used a blade to make a vertical incision along the cricothyroid membrane. Is able to palpate the membrane and make a horizontal incision through the membrane. Placed the dilator into the membrane and was able to put in the supplied non-cuffed trach tube We are able to have good end-tidal CO2 change, however there seemed to be some air leak through the mouth. Used a bougie to put into the uncuffed trach tube, then remove this to and placed a cuffed trach tube over the bougie and was able to insert this into the cricothyroid membrane without difficulty The cuff was inflated to good seal no air leak ventilation was easy. At that point I ordered more bicarbonate. Patient was given bicarbonate ventilated adequately. At that point spontaneous pulse was felt. She had a return of circulation heart rate in the low 100s with good blood pressure will continue with further orders and care for this patient from here. He was at bedside with me. Condition: Critical Diagnoses: CPR with successful resuscitation Emergent cricothyrotomy Cardiopulmonary arrest Critical Care Time: 70 minutes Treatments/Evaluations: Close monitoring and treatment of unstable vital signs, cardiorespiratory, and neurologic status, while maintaining tight balance of fluid, respiratory, and cardiac interventions. This time includes discussing the case with the patient and the patient's family. This time does not include all procedures stated elsewhere in this record. This time also includes reviewing old records, labs and radiological studies. This time includes examining and re-examining the patient. Additionally, this time also includes arranging care with admitting and consulting physicians. DEE TOWNSEND DO May 01, 2017 04:06
[2017-05-01 04:10] LABS: ADD SCAN DIFF NO
[2017-05-01 04:12] LABS: ABNORMAL IP MESSAGE 1; HEMATOCRIT 22.3 % (37.0-47.0); MEAN CORPUSCULAR HEMOGLOBIN 35.8 pg (29.0-33.0); MEAN CORPUSCULAR HGB CONC 30.5 g/dl (32.0-37.0); MEAN CORPUSCULAR VOLUME 117.4 fl (82.0-101.0); MEAN PLATELET VOLUME 12.2 fl (7.4-10.4); PLATELET COUNT 339 10^3/UL (140-415); RED CELL DISTRIBUTION WIDTH 15.6 % (11.5-14.5)
[2017-05-01 04:25] LABS: HEMOGLOBIN 6.8 g/dl (12.0-16.0)
[2017-05-01 04:50] LABS: CALCIUM 7.8 mg/dl (8.4-10.2); CREATININE 1.5 mg/dl (0.44-1.00); MAGNESIUM 2.7 mg/dl (1.7-2.5); PHOSPHORUS 6.9 mg/dl (2.5-4.9); POTASSIUM 5.4 mmol/L (3.5-5.1)
[2017-05-01] MEDS: FUROSEMIDE 40 MG INJ IV SCH (06:00)
[2017-05-01] MEDS: metroNIDAZOLE 500 MG TAB GTB SCH ×3 (06:27→22:08)
[2017-05-01] MEDS: METOCLOPRAMIDE 10 MG INJ IV SCH ×4 (06:28→23:41)
[2017-05-01] MEDS: LEVOTHYROXINE 75 MCG TAB GTB SCH (06:28)
[2017-05-01 06:43] LABS: EOSINOPHILS # 0.4 10^3/ul (0.0-0.5); LYMPHOCYTES # 0.4 10^3/ul (0.8-2.9); METAMYELOCYTES %M 1 % (0-0); MONOCYTE # 0.4 10^3/ul (0.3-0.9); NEUTROPHIL # 31.2 10^3/ul (1.6-7.5)
[2017-05-01 06:44] LABS: ANISOCYTOSIS 1+
[2017-05-01] MEDS ORDERED: ETOMIDATE 20 MG INJ ONE (07:00)
[2017-05-01] MEDS ORDERED: SUCCINYLCHOLINE CHLORIDE 100 MG/5 ML SYG IV ONE (07:00)
[2017-05-01] MEDS ORDERED: NORepinephrine 8MG/250 ML BAG ONE (07:00)
--- NOTE | 2017-05-01 07:19 | PN ---
Date/Time of Note Date/Time of Note DATE: 05/01/17 TIME: 07:11 Assessment/Plan VTE Prophylaxis VTE Prophylaxis Intervention: other Lines/Catheters IV Catheter Type (from Nrs): PICC Line Central line still needed: Yes Urinary Cath still in place: Yes Reason Cath still needed: other (indicate) Assessment/Plan Chief Complaint/Hosp Course 1. acute on chronic hypoxemic respiratory failure: CURRENTLY s/p Emergent cricothyrotomy by ER 2. NSTEMI: due to demand ischemia. 3. CHF/ fluid overload: due to diastolic heart failure 4. moderate 5. Arrhythmia and P afib, frequent PVC: 6. ANEMIA 7. pneumonia, severe leukocytosis now. 8. sepsis and shock: BACK ON 3 pressors now 9. Anasarca 10. s/p cardiopulm arrest due to resp failure Rec: Discont ASA due to active bleeding and severe anemia. resp care as per PULM Team. ENT consult. correct lytes prn. cont ICU care. off of betablocker due to shock. . thyroid supplement . will closely monitor in ICU. diuretics on hold due to hypotension/ shock transfuse prn more than 40 minutes of critical care time was spent in management and treatment of this critically ill pt excluding any procedures. Problems: Subjective 24 Hr Interval Summary Free Text/Dictation CARDIOLOGY FOLLOW UP/ critical care note: D/W staff , and DR Valderrama. rhythm was reviewed. pt has remained in NSR overnight with short episode of Afib after the code. d/w events noted. pt with increasing resp failure and coded last night. difficult intubation and could not be re-intubated and had to have cricotomy done by ER emergently. currently in ICU on 3 pressors. Objective: General: intubated HEENT: NC/AT. . oropharynx with bleeding and multiple lesions. . NECK: NO JVD. no stridor. s/p trach on vent 100% now. CV: tachycardic. systolic ejection murmur; no gallop or rubs. PULM: + diffuse rhonchi. GI: SOFT, NT, ND, no rebound or guarding s/p PEG Extremity: 3+ B/L LE edema. no clubbing. neuro: opens her eye Psych: calm rectal: deferred Derm: multiple echymosis Exam/Review of Systems Vital Signs Vitals Vital Signs Date Time Temp Pulse Resp B/P Pulse Ox O2 Delivery O2 Flow Rate FiO2 05/01/17 06:30 115 30 93/74 100 05/01/17 06:14 100 05/01/17 06:00 Mechanical Ventilator 05/01/17 04:00 97.3 05/01/17 00:30 15.0 Intake and Output 04/30/17 04/30/17 05/01/17 15:00 23:00 07:00 Intake Total 150 ml 600 ml 0 ml Output Total 130 ml 300 ml 70 ml Balance 20 ml 300 ml -70 ml Results Result Diagram: 05/01/17 0333 05/01/17 0333 Results 24 hrs Laboratory Tests Test 04/30/17 11:48 04/30/17 18:03 04/30/17 23:55 05/01/17 01:24 Bedside Glucose 136 136 91 81 Test 05/01/17 01:50 05/01/17 02:01 05/01/17 03:33 Blood Gas Specimen Source Blood arterial Arterial Blood Date Drawn 05/01/2017 2:15:53 AM Arterial Blood pH (Temp corrected) 7.076 *L Arterial Blood pCO2 (Temp correct) 99.9 *H Arterial Blood pO2 (Temp corrected) 67.1 L Arterial Blood HCO3 28.7 H Arterial Blood Base Excess -2.1 Arterial Blood Oxygen Saturation 86.9 L Jonn Test N/A Arterial Blood Gas Puncture Site Right Brachial Arterial Blood Carboxyhemoglobin 0.2 Arterial Blood Methemoglobin 0.7 Blood Gas A-a O2 Differential 546.0 H Oxyhemoglobin Percent 86.1 L Total Hemoglobin 8.1 L Blood Gas Temperature 37.0 Blood Gas Respiration Rate 20.0 Blood Gas Actual Respiration Rate 20 Blood Gas Modality VENT - AC FiO2 100.0 Blood Gas Inspiratory Time 0.8 Blood Gas Mean Airway Pressure 15 Blood Gas High PEEP Setting 38.0 Blood Gas Low PEEP Setting 5.0 Blood Gas Critical Value Read Back NICKOLAS MICHEL Blood Gas Notified Whom JANETTE Blood Gas Notified Time 05/01/2017 2:39:33 AM White Blood Count 41.2 #H 44.0 H Red Blood Count 1.72 #L 1.90 L Hemoglobin 6.2 #*L 6.8 *L Hematocrit 20.9 #L 22.3 L Mean Corpuscular Volume 121.5 H 117.4 H Mean Corpuscular Hemoglobin 36.0 H 35.8 H Mean Corpuscular Hemoglobin Concent 29.7 L 30.5 L Red Cell Distribution Width 15.7 H 15.6 H Platelet Count 303 # 339 Mean Platelet Volume 12.6 H 12.2 H Neutrophils % 81.9 H 71.0 Lymphocytes % 9.5 L 1.0 L Monocytes % 4.6 1.0 Eosinophils % 0.1 1.0 Basophils % 0.1 Nucleated Red Blood Cells % 0.3 H Neutrophils # 33.7 H 31.2 H Lymphocytes # 3.9 H 0.4 L Monocytes # 1.9 H 0.4 Eosinophils # 0.1 0.4 Basophils # 0.0 Nucleated Red Blood Cells # 0.1 H Sodium Level 151 H 152 H Potassium Level 5.4 H 5.4 H Chloride Level 105 109 Carbon Dioxide Level 33 H 28 Anion Gap 18 H 20 H Blood Urea Nitrogen 81 H 81 H Creatinine 1.32 H 1.50 H Glucose Level 198 161 Calcium Level 7.8 L 7.8 L Total Bilirubin 0.0 L Direct Bilirubin 0.00 Indirect Bilirubin 0.0 Aspartate Amino Transf (AST/SGOT) 727 H Alanine Aminotransferase (ALT/SGPT) 428 H Alkaline Phosphatase 69 Total Protein 3.2 #L Albumin 1.6 L Globulin 1.60 Albumin/Globulin Ratio 1.00 Band Neutrophils % 25.0 H Metamyelocytes % (manual) 1 H Metamyelocytes # 0.4 Anisocytosis 1+ Macrocytosis 2+ Phosphorus Level 6.9 #H Magnesium Level 2.7 H Medications Medications Current Medications Aspirin (Aspirin) 325 mg DAILY NGT Last administered on 04/30/17 08:43; Admin Dose 325 MG; Start 04/12/17 at 09:00 Metoprolol Tartrate (Lopressor) 5 mg Q4H PRN IV HR>110 Hold SBP<110 Last administered on 04/20/17 17:36; Admin Dose 5 MG; Start 04/11/17 at 13:30 Lansoprazole (Prevacid) 30 mg DAILY GTB Last administered on 04/30/17 08:43; Admin Dose 30 MG; Start 04/12/17 at 09:00 Miscellaneous Information 1 ea NOTE XX ; Start 04/11/17 at 16:30 Glucose (Glutose) 15 gm Q15M PRN PO DECREASED GLUCOSE; Start 04/11/17 at 16:30 Glucose (Glutose) 22.5 gm Q15M PRN PO DECREASED GLUCOSE; Start 04/11/17 at 16: 30 Dextrose (D50w Syringe) 25 ml Q15M PRN IV DECREASED GLUCOSE Last administered on 04/12/17 23:56; Admin Dose 25 ML; Start 04/11/17 at 16:30 Dextrose (D50w Syringe) 50 ml Q15M PRN IV DECREASED GLUCOSE; Start 04/11/17 at 16:30 Glucagon (Glucagen) 1 mg Q15M PRN IM DECREASED GLUCOSE; Start 04/11/17 at 16:30 Glucose (Glutose) 15 gm Q15M PRN BUCCAL DECREASED GLUCOSE; Start 04/11/17 at 16 :30 Metoclopramide HCl (Reglan) 10 mg Q6 IV Last administered on 05/01/17 06:28; Admin Dose 10 MG; Start 04/12/17 at 18:00 Insulin Aspart (Novolog Insulin Pen) NOVOLOG *MILD* ALGORI... Q6H SC Last administered on 04/30/17 05:59; Admin Dose 1 UNIT; Start 04/15/17 at 00:00 IV Flush (NS 10 ml) 10 ml PRN PRN IV FLUSH LINE; Start 04/15/17 at 13:00 Amiodarone HCl (Cordarone) 200 mg BID GTB Last administered on 04/30/17 21:01 ; Admin Dose 200 MG; Start 04/16/17 at 13:00 Enoxaparin Sodium (Lovenox) 40 mg HS SC Last administered on 04/17/17 20:38; Admin Dose 40 MG; Start 04/17/17 at 21:00; Status Future Hold Heparin Sodium (Porcine) (Heparin (5000 Units/0.5 ml)) 5,000 unit BID SC Last administered on 04/30/17 21:03; Admin Dose 5,000 UNIT; Start 04/18/17 at 16:22; Status Future Hold Citalopram Hydrobromide (Celexa) 20 mg DAILY NGT Last administered on 08:43; Admin Dose 20 MG; Start 04/19/17 at 09:00 Hydralazine HCl 20 mg 20 mg Q6H PRN IV sbp ABOVE 160 Last administered on 22:40; Admin Dose 20 MG; Start 04/18/17 at 18:30 Caspofungin/ Sodium Chloride (Cancidas/NS) 250 ml @ 250 mls/hr Q24H IV Last administered on 04/30/17 09:46; Admin Dose 250 MLS/HR; Start 04/21/17 at 10:00 Chlorhexidine Gluconate (Peridex) 15 ml BID MT Last administered on 04/30/17 20:59; Admin Dose 15 ML; Start 04/22/17 at 21:00 Vitamin A/Vitamin D (Vitamin A & D Oint) 1 applic TID TOP Last administered on 04/30/17 21:00; Admin Dose 1 APPLIC; Start 04/22/17 at 21:00 Vitamin A/Vitamin D (Vitamin A & D Oint) 1 applic TID PRN TOP DRYNESS Last administered on 04/22/17 15:29; Admin Dose 1 APPLIC; Start 04/22/17 at 15:00 Acetaminophen/ Hydrocodone Bitart ([place] (5/325)) 1 tab Q6H GTB Last administered on 04/30/17 21:00; Admin Dose 1 TAB; Start 04/22/17 at 21:30 Spironolactone (Aldactone) 25 mg DAILY NGT Last administered on 04/30/17 08:43 ; Admin Dose 25 MG; Start 04/25/17 at 19:00; Status Future Hold Diltiazem HCl 5 mg 5 mg Q1H PRN IV HEART RATE GREATER THAN 120 Last administered on 04/29/17 06:17; Admin Dose 5 MG; Start 04/29/17 at 05:00 Meropenem/Sodium Chloride (Merrem 500mg/50 ml(Pmx)) 50 ml @ 200 mls/hr Q12 IVPB Last administered on 04/30/17 21:46; Admin Dose 200 MLS/HR; Start at 12:00 Metoprolol Tartrate (Lopressor) 25 mg BID GTB Last administered on 04/30/17 21 :01; Admin Dose 25 MG; Start 04/30/17 at 21:00 Valacyclovir HCl (Valtrex) 500 mg BID GTB Last administered on 04/30/17 21:46 ; Admin Dose 500 MG; Start 04/30/17 at 21:00 Metronidazole 500 mg 500 mg Q8 GTB Last administered on 05/01/17 06:27; Admin Dose 500 MG; Start 04/30/17 at 22:00 Albumin Human 100 ml @ 100 mls/hr Q8H IV Last administered on 05/01/17 02:24 ; Admin Dose 100 MLS/HR; Start 05/01/17 at 01:30; Stop 05/01/17 at 18:29 Dopamine HCl/ Dextrose 250 ml @ 4.875 mls/ hr TITRATE IV Last administered on 05/01/17 07:07; Admin Dose 48.75 MLS/HR; Start 05/01/17 at 02:30 Vasopressin/ Dextrose (Vasostrict/D5W) 60 ml @ 1.2 mls/hr Q12H IV Last administered on 05/01/17 02:48; Admin Dose 1.2 MLS/HR; Start 05/01/17 at 02:30 Hydrocortisone 100 mg 100 mg TID IV ; Start 05/01/17 at 09:00 Sodium Chloride 1,000 ml @ 0 mls/hr Q0M IV Last administered on 05/01/17 03: 00; Admin Dose 1,000 MLS/HR; Start 05/01/17 at 03:00 Sodium Chloride 1,000 ml @ 0 mls/hr Q0M IV Last administered on 05/01/17 04: 00; Admin Dose 1,000 MLS/HR; Start 05/01/17 at 03:30 Norepinephrine 16 mg/Dextrose 500 ml @ 1.87 mls/hr TITRATE IV ; Start 05/01/17 at 07:00; Status UNV Sodium Chloride (NS) 1,000 ml @ 100 mls/hr Q10H IV ; Start 05/01/17 at 07:00; Status UNV FRANCISCO BLACKWOOD MD May 01, 2017 07:19
--- NOTE | 2017-05-01 07:42 | PN ---
Date/Time of Note Date/Time of Note DATE: 05/01/17 TIME: 07:31 Assessment/Plan VTE Prophylaxis VTE Prophylaxis Intervention: other Lines/Catheters IV Catheter Type (from Nrsg): PICC Line Central line still needed: Yes Urinary Cath still in place: Yes Reason Cath still needed: other (indicate) Assessment/Plan Chief Complaint/Hosp Course 1. Status post code arrest -Etiology secondary to sepsis, hypoxemic failure -Patient was coded 30 minutes with spontaneous return of circulation We will continue to monitor 2. Hypoxemic respiratory failure secondary to aspiration pneumonia, shock -Patient intubated -Patient status post emergent tracheostomy -ABG chest x-ray reviewed -We will follow-up with pulmonary, consider ENT consult 2. Anuric Key[place]. With previously normal baseline creatinine. Etiology is likely secondary to septic KEYONNA, ATN -Patient may require dialysis as patients hyperkalemia -Follow-up renal panel - 3. Hyperkalemia secondary to acute kidney injury acidemia We will repeat renal panel ABG. If no significant improvement will consider starting renal replacement therapy 3. Septic shock Etiology secondary to aspiration pneumonia, fungemia Patient is on broad-spectrum antibiotics, antifungals, pressure support - Patient's blood cultures have been reviewed. - Continue current treatment plan Follow-up with infectious disease 4. Volume overload. Etiology likely secondary to sepsis capillary leak, diastolic heart failure. -Patient is currently anuric acute kidney injury -We will attempt to minimize IV fluids -May require dialysis for ultrafiltration if hemodynamically stable 6. History of adrenal insufficiency. -Patient currently on stress steroids, being weaned off slowly -Appreciate endocrinology evaluation 7. Acute encephalopathy etiologies toxic metabolic, possible anoxic injury. Mental status is improving, patient following commands CT scan showed no acute finding Appreciate Dr. Ellis evaluation -Continue to monitor closely 8. Hypernatremia -Patient has a free water deficit of approximately 4 L -All piggybacks placed in D5 water Monitor 9. Hypothyroidism continue Synthroid 10. Anemia. -With apparent oral facial bleed, epistaxis -Patient will receive 2 units of PRBC -We will consider ENT or GI evaluation 11. Mineral bone disorder will monitor calcium phosphorus levels 12. h/o tongue cancer with resection 13. History of diastolic heart failure/coronary disease -Continue medical management 14. Leukocytosis. -Etiology is likely secondary sepsis, steroids. -Monitor - Follow-up with infectious disease. 15. Hypomagnesemia. Continue to monitor and replete as needed 16. Left upper extremity DVT. -Hold aspirin heparin setting of bleed 17. Dysphagia status post PEG Hold tube feedings at this time 18. Arrhythmia Status post amiodarone drip Follow-up with cardio 19. possible acute cholecystitis -Patient's HIDA scan was positive - cholecystostomy drain was not placed due to insufficient fluid. -No plan for drain placement at this time. I discussed case with general surgery Appreciate surgery's evaluation. 20. 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 Ellis's evaluation Continue supportive care I spent greater than 40 minutes of critical care time with this pt Problems: Subjective 24 Hr Interval Summary Free Text/Dictation Patient yesterday was transferred from ICU to telemetry. Patient while telemetry was stable. Overnight patient went into hypoxemic respiratory distress. Patient underwent multiple attempts of intubation on the telemetry floor unsuccessfully. The patient was placed on BiPAP transferred back to the intensive care unit. While in intensive care unit patient underwent a code arrest after 30 minutes patient was resuscitated. Patient was in shock on multiple pressors. Patient also noted to have bleeding around the mouth. Patient is receiving blood transfusion. Please note that an emergent tracheostomy had to be performed as the code team was unable to intubate patient due to narrow airway. Patient's is at bedside. I explained to the the patient is critically ill in multiple organ failure. Including renal failure may require dialysis. Patient has a very poor prognosis. Patient's voiced understanding. Exam/Review of Systems Vital Signs Vitals Vital Signs Date Time Temp Pulse Resp B/P Pulse Ox O2 Delivery O2 Flow Rate FiO2 05/01/17 06:30 115 30 93/74 100 05/01/17 06:14 100 05/01/17 06:00 Mechanical Ventilator 05/01/17 04:00 97.3 05/01/17 00:30 15.0 Intake and Output 04/30/17 04/30/17 05/01/17 15:00 23:00 07:00 Intake Total 150 ml 600 ml 0 ml Output Total 130 ml 300 ml 70 ml Balance 20 ml 300 ml -70 ml Exam General. Critically ill, intubated HEENT: Head is normocephalic. NECK: Trach HEART: Irregular LUNGS: Show diminished breath sounds at base. ABDOMEN: Soft, nontender to palpation without rebound or guarding. EXTREMITIES: Negative for clubbing, cyanosis. Positive edema diffuse anasarca DERMATOLOGIC: No rashes. MUSCULOSKELETAL: No joint effusions, NEUROLOGIC: Patient obtunded Results Result Diagram: 05/01/17 0333 05/01/17 0333 Results 24 hrs Laboratory Tests Test 04/30/17 11:48 04/30/17 18:03 04/30/17 23:55 05/01/17 01:24 Bedside Glucose 136 136 91 81 Test 05/01/17 01:50 05/01/17 02:01 05/01/17 03:33 Blood Gas Specimen Source Blood arterial Arterial Blood Date Drawn 05/01/2017 2:15:53 AM Arterial Blood pH (Temp corrected) 7.076 *L Arterial Blood pCO2 (Temp correct) 99.9 *H Arterial Blood pO2 (Temp corrected) 67.1 L Arterial Blood HCO3 28.7 H Arterial Blood Base Excess -2.1 Arterial Blood Oxygen Saturation 86.9 L Jonn Test N/A Arterial Blood Gas Puncture Site Right Brachial Arterial Blood Carboxyhemoglobin 0.2 Arterial Blood Methemoglobin 0.7 Blood Gas A-a O2 Differential 546.0 H Oxyhemoglobin Percent 86.1 L Total Hemoglobin 8.1 L Blood Gas Temperature 37.0 Blood Gas Respiration Rate 20.0 Blood Gas Actual Respiration Rate 20 Blood Gas Modality VENT - AC FiO2 100.0 Blood Gas Inspiratory Time 0.8 Blood Gas Mean Airway Pressure 15 Blood Gas High PEEP Setting 38.0 Blood Gas Low PEEP Setting 5.0 Blood Gas Critical Value Read Back NICKOLAS MICHEL Blood Gas Notified Whom MA Blood Gas Notified Time 05/01/2017 2:39:33 AM White Blood Count 41.2 #H 44.0 H Red Blood Count 1.72 #L 1.90 L Hemoglobin 6.2 #*L 6.8 *L Hematocrit 20.9 #L 22.3 L Mean Corpuscular Volume 121.5 H 117.4 H Mean Corpuscular Hemoglobin 36.0 H 35.8 H Mean Corpuscular Hemoglobin Concent 29.7 L 30.5 L Red Cell Distribution Width 15.7 H 15.6 H Platelet Count 303 # 339 Mean Platelet Volume 12.6 H 12.2 H Neutrophils % 81.9 H 71.0 Lymphocytes % 9.5 L 1.0 L Monocytes % 4.6 1.0 Eosinophils % 0.1 1.0 Basophils % 0.1 Nucleated Red Blood Cells % 0.3 H Neutrophils # 33.7 H 31.2 H Lymphocytes # 3.9 H 0.4 L Monocytes # 1.9 H 0.4 Eosinophils # 0.1 0.4 Basophils # 0.0 Nucleated Red Blood Cells # 0.1 H Sodium Level 151 H 152 H Potassium Level 5.4 H 5.4 H Chloride Level 105 109 Carbon Dioxide Level 33 H 28 Anion Gap 18 H 20 H Blood Urea Nitrogen 81 H 81 H Creatinine 1.32 H 1.50 H Glucose Level 198 161 Calcium Level 7.8 L 7.8 L Total Bilirubin 0.0 L Direct Bilirubin 0.00 Indirect Bilirubin 0.0 Aspartate Amino Transf (AST/SGOT) 727 H Alanine Aminotransferase (ALT/SGPT) 428 H Alkaline Phosphatase 69 Total Protein 3.2 #L Albumin 1.6 L Globulin 1.60 Albumin/Globulin Ratio 1.00 Band Neutrophils % 25.0 H Metamyelocytes % (manual) 1 H Metamyelocytes # 0.4 Anisocytosis 1+ Macrocytosis 2+ Phosphorus Level 6.9 #H Magnesium Level 2.7 H Medications Medications Current Medications Aspirin (Aspirin) 325 mg DAILY NGT Last administered on 04/30/17 08:43; Admin Dose 325 MG; Start 04/12/17 at 09:00; Status Future Hold Metoprolol Tartrate (Lopressor) 5 mg Q4H PRN IV HR>110 Hold SBP<110 Last administered on 04/20/17 17:36; Admin Dose 5 MG; Start 04/11/17 at 13:30 Lansoprazole (Prevacid) 30 mg DAILY GTB Last administered on 04/30/17 08:43; Admin Dose 30 MG; Start 04/12/17 at 09:00 Miscellaneous Information 1 ea NOTE XX ; Start 04/11/17 at 16:30 Glucose (Glutose) 15 gm Q15M PRN PO DECREASED GLUCOSE; Start 04/11/17 at 16:30 Glucose (Glutose) 22.5 gm Q15M PRN PO DECREASED GLUCOSE; Start 04/11/17 at 16: 30 Dextrose (D50w Syringe) 25 ml Q15M PRN IV DECREASED GLUCOSE Last administered on 04/12/17 23:56; Admin Dose 25 ML; Start 04/11/17 at 16:30 Dextrose (D50w Syringe) 50 ml Q15M PRN IV DECREASED GLUCOSE; Start 04/11/17 at 16:30 Glucagon (Glucagen) 1 mg Q15M PRN IM DECREASED GLUCOSE; Start 04/11/17 at 16:30 Glucose (Glutose) 15 gm Q15M PRN BUCCAL DECREASED GLUCOSE; Start 04/11/17 at 16 :30 Metoclopramide HCl (Reglan) 10 mg Q6 IV Last administered on 05/01/17 06:28; Admin Dose 10 MG; Start 04/12/17 at 18:00 Insulin Aspart (Novolog Insulin Pen) NOVOLOG *MILD* ALGORI... Q6H SC Last administered on 04/30/17 05:59; Admin Dose 1 UNIT; Start 04/15/17 at 00:00 IV Flush (NS 10 ml) 10 ml PRN PRN IV FLUSH LINE; Start 04/15/17 at 13:00 Amiodarone HCl (Cordarone) 200 mg BID GTB Last administered on 04/30/17 21:01 ; Admin Dose 200 MG; Start 04/16/17 at 13:00 Enoxaparin Sodium (Lovenox) 40 mg HS SC Last administered on 04/17/17 20:38; Admin Dose 40 MG; Start 04/17/17 at 21:00; Status Future Hold Heparin Sodium (Porcine) (Heparin (5000 Units/0.5 ml)) 5,000 unit BID SC Last administered on 04/30/17 21:03; Admin Dose 5,000 UNIT; Start 04/18/17 at 16:22; Status Future Hold Citalopram Hydrobromide (Celexa) 20 mg DAILY NGT Last administered on 08:43; Admin Dose 20 MG; Start 04/19/17 at 09:00 Hydralazine HCl 20 mg 20 mg Q6H PRN IV sbp ABOVE 160 Last administered on 22:40; Admin Dose 20 MG; Start 04/18/17 at 18:30 Caspofungin/ Sodium Chloride (Cancidas/NS) 250 ml @ 250 mls/hr Q24H IV Last administered on 04/30/17 09:46; Admin Dose 250 MLS/HR; Start 04/21/17 at 10:00 Chlorhexidine Gluconate (Peridex) 15 ml BID MT Last administered on 04/30/17 20:59; Admin Dose 15 ML; Start 04/22/17 at 21:00 Vitamin A/Vitamin D (Vitamin A & D Oint) 1 applic TID TOP Last administered on 04/30/17 21:00; Admin Dose 1 APPLIC; Start 04/22/17 at 21:00 Vitamin A/Vitamin D (Vitamin A & D Oint) 1 applic TID PRN TOP DRYNESS Last administered on 04/22/17 15:29; Admin Dose 1 APPLIC; Start 04/22/17 at 15:00 Acetaminophen/ Hydrocodone Bitart ([place] (5/325)) 1 tab Q6H GTB Last administered on 04/30/17 21:00; Admin Dose 1 TAB; Start 04/22/17 at 21:30 Spironolactone (Aldactone) 25 mg DAILY NGT Last administered on 04/30/17 08:43 ; Admin Dose 25 MG; Start 04/25/17 at 19:00; Status Future Hold Diltiazem HCl 5 mg 5 mg Q1H PRN IV HEART RATE GREATER THAN 120 Last administered on 04/29/17 06:17; Admin Dose 5 MG; Start 04/29/17 at 05:00 Meropenem/Sodium Chloride (Merrem 500mg/50 ml(Pmx)) 50 ml @ 200 mls/hr Q12 IVPB Last administered on 04/30/17 21:46; Admin Dose 200 MLS/HR; Start at 12:00 Metoprolol Tartrate (Lopressor) 25 mg BID GTB Last administered on 04/30/17 21 :01; Admin Dose 25 MG; Start 04/30/17 at 21:00; Status Future Hold Valacyclovir HCl (Valtrex) 500 mg BID GTB Last administered on 04/30/17 21:46 ; Admin Dose 500 MG; Start 04/30/17 at 21:00 Metronidazole 500 mg 500 mg Q8 GTB Last administered on 05/01/17 06:27; Admin Dose 500 MG; Start 04/30/17 at 22:00 Albumin Human 100 ml @ 100 mls/hr Q8H IV Last administered on 05/01/17 02:24 ; Admin Dose 100 MLS/HR; Start 05/01/17 at 01:30; Stop 05/01/17 at 18:29 Dopamine HCl/ Dextrose 250 ml @ 4.875 mls/ hr TITRATE IV Last administered on 05/01/17 07:07; Admin Dose 48.75 MLS/HR; Start 05/01/17 at 02:30 Vasopressin/ Dextrose (Vasostrict/D5W) 60 ml @ 1.2 mls/hr Q12H IV Last administered on 05/01/17 02:48; Admin Dose 1.2 MLS/HR; Start 05/01/17 at 02:30 Hydrocortisone 100 mg 100 mg TID IV ; Start 05/01/17 at 09:00 Sodium Chloride 1,000 ml @ 0 mls/hr Q0M IV Last administered on 05/01/17 03: 00; Admin Dose 1,000 MLS/HR; Start 05/01/17 at 03:00 Sodium Chloride 1,000 ml @ 0 mls/hr Q0M IV Last administered on 05/01/17 04: 00; Admin Dose 1,000 MLS/HR; Start 05/01/17 at 03:30 Norepinephrine 16 mg/Dextrose 500 ml @ 1.87 mls/hr TITRATE IV ; Start 05/01/17 at 08:00 Sodium Chloride (NS) 1,000 ml @ 100 mls/hr Q10H IV ; Start 05/01/17 at 07:00 NINA MACIEL DO May 01, 2017 07:41
[2017-05-01 07:51] LABS: Allen Test ACCEPTAB; Arterial COHb 0.3 % (0.0-3.0)
[2017-05-01 07:55] LABS: AADO2 Arterial 516.6 mmHg (7.0-24.0); Arterial Base Excess 0.3 mmol/L (-3.0-3); Arterial Fraction of Oxyhgb 97.5 % (93.0-99.0); Arterial HCO3 27.3 mmol/L (22.0-26.0); Arterial MetHb 0.5 % (0.0-1.5); Arterial Total Hemglobin 8.4 g/dl (12.0-18.0); MODE VENT - PC
[2017-05-01] MEDS: INSULIN ASPART [NOVOLOG] 3 ML PEN SC SCH ×4 (08:00→23:43)
[2017-05-01] MEDS: SOD CHLORIDE 0.9% 1,000 ML IV SCH ×2 (08:01→17:43)
[2017-05-01 08:33] LABS: INR 1.42; PROTIME 17.4 Sec (12.2-14.2); PT RATIO 1.4
[2017-05-01 08:35] LABS: ALBUMIN 2.8 g/dl (3.3-4.9); ALBUMIN/GLOBULIN RATIO 1.21; CALCIUM 8.3 mg/dl (8.4-10.2); CREATININE 1.43 mg/dl (0.44-1.00); POTASSIUM 5.4 mmol/L (3.5-5.1); TOTAL PROTEIN 5.1 g/dl (6.1-8.1)
[2017-05-01] MEDS: CITALOPRAM 20 MG TAB NGT SCH (08:40)
[2017-05-01] MEDS: CHLORHEXIDINE GLUCONATE 15 ML UD CUP MT SCH ×2 (08:40→20:32)
[2017-05-01] MEDS: HYDROCORTISONE 100 MG INJ IV SCH ×3 (08:40→20:32)
[2017-05-01] MEDS: LANSOPRAZOLE 30 MG CAP GTB SCH (08:40)
[2017-05-01] MEDS: VITAMIN A & D 5 GM OINT PACKET TOP SCH ×3 (08:40→20:32)
[2017-05-01] MEDS: VALACYCLOVIR 500 MG TAB GTB SCH ×2 (08:40→21:25)
--- NOTE | 2017-05-01 08:46 | PN ---
Date/Time of Note Date/Time of Note DATE: 05/01/17 TIME: 08:27 Assessment/Plan Lines/Catheters IV Catheter Type (from [facility]): PICC Line Latif in Place (from [facility]): Yes Assessment/Plan Chief Complaint/Hosp Course 1. Cholelithiasis ? cholecystitis: Ct abd: sludge and small stones in the gallbladder. No gallbladder wall thickening is noted with some pericholecystic fluid is present. Patient off pressors; GT/OGT no output; HIDA positive; IR drain placement cancelled by radiologist since US without evidence of infection. Therefore, Dr. Guadalupe believes the HIDA is false positive. Tolerating tube feeds; no abdominal pain/discomfort; LFT's increased, bili nl (s/p code with blood loss) -No surgical intervention required at this time 2. Pneumonia: Recurrent; no fevers; intubated; less secretion sputum cx: PSEUDOMONAS AERUGINOSA, K PNEUMO ESBL, NASRIN GLABRATA; appears comfortable;on nasal canula -pulmonary toilet -abx per ID 3. Vent dependent respiratory failure: 2/2 aspiration PNA+ CHF;reintubated and extubated, coded 04/21 and 05/01; currently reintubated -as above 4. Septic shock: improved -on abx -supportive 5. Uncontrolled Afib: s/p amiodarone drip, on oral amiodarone; episodes of Afib Now SR -medical optimization -lovenox 6. Elevated troponin:NSTEMI; septic shock/demand ischemia -trend 7. Leukocytosis with lactic acidosis: 2/2 pneumonia vs. steroids vs.fungemia vs other (urine, repeat blood cultures negative);wbc up: s/p code -abx, antifungals -judicious fluid management -supportive measures 8. KEYONNA: likely 2/2 septic shock; s/p code; cr up -judicious fluid management -avoid nephrotoxic agents 9. CHF: BNP elevated -judicious fluid management -medical optimization 10. Adrenal Insufficiency -solucortef 11. Hypomagnesemia: -electrolyte optimization -monitor for cardiac abnormalities 12. Hypothyroidism; tsh elevated -on synthroid 13. Macrocytic anemia: chronic vs. dilutional vs. acute bleed vs. b12/folate deficiency; neeru blood noted orally during code; prbc transfusion -monitor -Transfuse as needed 14. Transaminitis: likely 2/2 septic shock vs. cholecystitis; up s/p code -trend, monitor 15. Diarrhea: 2/2 abx vs. enteritis: resolved; tolerating tf -? probiotics 16. Thrombocytosis: 2/2 inflammatory vs. drug induced vs. other -monitor -bleeding precautions -supportive 17. Encephalopathy: 2/2 toxic metabolic vs. anoxic injury; CT: No acute intracranial hemorrhage or mass effect. Mild chronic microvascular disease and intracranial atherosclerosis; EEG shows no seizure activity -supportive 18. Bilateral upper extremity edema: likely 2/2 decreased movement vs. thrombosis; initial doppler negative, repeat doppler left arm (+) Thrombus -elevate extremities -supportive -anticoagulation 19. Hypoalbuminemia: 2/2 malnutrition +/- inflammation; decreased; tolerating tf ; -nutrition optimization -as above 20 Hypernatremia: -judicious fluid management 21. Hypocalcemia:normalized -optimize nutrition 22. Fungemia -antifungals 23. Hyperkalemia -optimize lytes 24. Oral lesions Patient seen and examined in collaboration with Dr. Justus Antonio Problems: Subjective 24 Hr Interval Summary Patient coded yesterday, neeru blood noted orally at that time. She was revived and transferred back to ICU. emergency tracheotomy. Patient lethargic. Vented. receiving blood. No sz, metzger, palpitations, cp, n/v/d, fevers, chills Exam/Review of Systems Vital Signs Vitals Vital Signs Date Time Temp Pulse Resp B/P Pulse Ox O2 Delivery O2 Flow Rate FiO2 05/01/17 07:30 118 20 102/59 100 05/01/17 07:00 Mechanical Ventilator 05/01/17 06:14 100 05/01/17 04:00 97.3 05/01/17 00:30 15.0 Intake and Output 04/30/17 04/30/17 05/01/17 15:00 23:00 07:00 Intake Total 150 ml 600 ml 3185.85 ml Output Total 130 ml 300 ml 80 ml Balance 20 ml 300 ml 3105.85 ml Exam Free Text/Dictation Constitutional: lethargic, appears comfortable Head: atraumatic, normocephalic Eyes: PERRL, nl lids, nl sclera ENMT: No mucosa pink and moist (pink and moist with perioral lesions) Neck: non-tender, supple, tracheostomy Respiratory: diminished, comfortable, on nasal canula Cardiovascular: nl pulses, regular rate and rhythm, NSR, Gastrointestinal: soft, GT tubes site no erythema, no drainage, non tenderness, bowel sounds x 4 quads Genitourinary - Female: nl external genitalia Musculoskeletal: nl extremities to inspection Extremities: normal pulses, bilateral upper/lower extremity edema Neurological: responsive Skin: nl turgor, No rash or lesions Lymph: nl lymph nodes Results Result Diagram: 05/01/17 0333 05/01/17 0333 ADDISON FREGOSO NP May 01, 2017 08:37
[2017-05-01] MEDS: AMIODARONE 200 MG TAB GTB SCH ×2 (08:55→20:32)
[2017-05-01] MEDS: MEROPENEM 500MG/50 ML (PMX) 50 ML IVPB SCH ×2 (08:56→20:32)
[2017-05-01] MEDS: LEVALBUTEROL (HFA) 15 GM INHALER INH SCH ×4 (10:00→21:16)
[2017-05-01] MEDS: CASPOFUNGIN 50 MG in NS 250 ML IV SCH (10:08)
[2017-05-01 10:45] LABS: WHITE BLOOD COUNT 30.9 10^3/ul (4.8-10.8)
--- NOTE | 2017-05-01 11:06 | CONS ---
Date/Time of Note Date/Time of Note DATE: 05/01/17 TIME: 11:03 Consult Date/Type/Reason Admit Date/Time Apr 11, 2017 at 11:28 Initial Consult Date 04/12/17 Type of Consultation: Pulmonary Ordering Provider: NINA MACIEL DO Subjective Events noted. Significant decompensation overnight with hypoxemic respiratory failure requiring emergent intubation. Difficult airway despite several attempts to possible tracheal tube with subsequent emergency bedside tracheostomy. Fortunately ER physician skillfully placed tracheostomy patient placed on mechanical ventilation. Initially requiring vasopressor support and no transfusion of packed red blood cells likely from bleeding from oropharynx. Objective Vital Signs Date Time Temp Pulse Resp B/P Pulse Ox O2 Delivery O2 Flow Rate FiO2 05/01/17 09:00 119 24 149/51 100 Mechanical Ventilator 05/01/17 08:00 97.7 05/01/17 06:14 100 05/01/17 00:30 15.0 Intake and Output 04/30/17 04/30/17 05/01/17 15:00 23:00 07:00 Intake Total 150 ml 600 ml 3185.85 ml Output Total 130 ml 300 ml 80 ml Balance 20 ml 300 ml 3105.85 ml Exam GENERAL: Chronically ill-appearing tracheostomy mechanical ventilation sedated VITAL SIGNS: per chart NECK: Supple. No JVD or lymphadenopathy. On mechanical ventilation CARDIAC EXAM: S1, S2. No added sounds or murmurs. CHEST: Diminished air entry bilaterally poor effort ABDOMEN: Soft, nontender. No guarding or rebound. EXTREMITIES: No cyanosis, clubbing edema +2 NEUROLOGIC: Generalized weakness. Results/Medications Result Diagram: 05/01/17 0333 05/01/17 0754 Results 24 hrs Laboratory Tests Test 04/30/17 11:48 04/30/17 18:03 04/30/17 23:55 05/01/17 01:24 Bedside Glucose 136 136 91 81 Test 05/01/17 01:50 05/01/17 02:01 05/01/17 03:33 05/01/17 07:54 Blood Gas Specimen Source Blood arterial Arterial Blood Date Drawn 05/01/2017 2:15:53 AM Arterial Blood pH (Temp corrected) 7.076 *L Arterial Blood pCO2 (Temp correct) 99.9 *H Arterial Blood pO2 (Temp corrected) 67.1 L Arterial Blood HCO3 28.7 H Arterial Blood Base Excess -2.1 Arterial Blood Oxygen Saturation 86.9 L Jonn Test N/A Arterial Blood Gas Puncture Site Right Brachial Arterial Blood Carboxyhemoglobin 0.2 Arterial Blood Methemoglobin 0.7 Blood Gas A-a O2 Differential 546.0 H Oxyhemoglobin Percent 86.1 L Total Hemoglobin 8.1 L Blood Gas Temperature 37.0 Blood Gas Respiration Rate 20.0 Blood Gas Actual Respiration Rate 20 Blood Gas Modality VENT - AC FiO2 100.0 Blood Gas Inspiratory Time 0.8 Blood Gas Mean Airway Pressure 15 Blood Gas High PEEP Setting 38.0 Blood Gas Low PEEP Setting 5.0 Blood Gas Critical Value Read Back NICKOLAS MICHEL Blood Gas Notified Whom JANETTE Blood Gas Notified Time 05/01/2017 2:39:33 AM White Blood Count 41.2 #H 44.0 H Red Blood Count 1.72 #L 1.90 L Hemoglobin 6.2 #*L 6.8 *L Hematocrit 20.9 #L 22.3 L Mean Corpuscular Volume 121.5 H 117.4 H Mean Corpuscular Hemoglobin 36.0 H 35.8 H Mean Corpuscular Hemoglobin Concent 29.7 L 30.5 L Red Cell Distribution Width 15.7 H 15.6 H Platelet Count 303 # 339 Mean Platelet Volume 12.6 H 12.2 H Neutrophils % 81.9 H 71.0 Lymphocytes % 9.5 L 1.0 L Monocytes % 4.6 1.0 Eosinophils % 0.1 1.0 Basophils % 0.1 Nucleated Red Blood Cells % 0.3 H Neutrophils # 33.7 H 31.2 H Lymphocytes # 3.9 H 0.4 L Monocytes # 1.9 H 0.4 Eosinophils # 0.1 0.4 Basophils # 0.0 Nucleated Red Blood Cells # 0.1 H Sodium Level 151 H 152 H 152 H Potassium Level 5.4 H 5.4 H 5.4 H Chloride Level 105 109 106 Carbon Dioxide Level 33 H 28 31 Anion Gap 18 H 20 H 20 H Blood Urea Nitrogen 81 H 81 H 80 H Creatinine 1.32 H 1.50 H 1.43 H Glucose Level 198 161 165 Calcium Level 7.8 L 7.8 L 8.3 L Total Bilirubin 0.0 L 0.0 L Direct Bilirubin 0.00 0.00 Indirect Bilirubin 0.0 0.0 Aspartate Amino Transf (AST/SGOT) 727 H 982 H Alanine Aminotransferase (ALT/SGPT) 428 H 558 H Alkaline Phosphatase 69 87 Total Protein 3.2 #L 5.1 #L Albumin 1.6 L 2.8 #L Globulin 1.60 2.30 Albumin/Globulin Ratio 1.00 1.21 Band Neutrophils % 25.0 H Metamyelocytes % (manual) 1 H Metamyelocytes # 0.4 Anisocytosis 1+ Macrocytosis 2+ Phosphorus Level 6.9 #H Magnesium Level 2.7 H Prothrombin Time 17.4 #H Prothrombin Time Ratio 1.4 INR International Normalized Ratio 1.42 Test 05/01/17 07:59 05/01/17 08:00 Bedside Glucose 144 Blood Gas Specimen Source Blood arterial Arterial Blood Date Drawn 05/01/2017 7:40:06 AM Arterial Blood pH (Temp corrected) 7.293 *L Arterial Blood pCO2 (Temp correct) 57.6 H Arterial Blood pO2 (Temp corrected) 138.8 H Arterial Blood HCO3 27.3 H Arterial Blood Base Excess 0.3 Arterial Blood Oxygen Saturation 98.3 H Jonn Test ACCEPTAB Arterial Blood Gas Puncture Site Right Radial Arterial Blood Carboxyhemoglobin 0.3 Arterial Blood Methemoglobin 0.5 Blood Gas A-a O2 Differential 516.6 H Oxyhemoglobin Percent 97.5 Total Hemoglobin 8.4 L Blood Gas Temperature 37.0 Blood Gas Respiration Rate 20.0 Blood Gas Actual Respiration Rate 25 Blood Gas Modality VENT - PC FiO2 100.0 Blood Gas Low PEEP Setting 5.0 Blood Gas Inspiratory Pressure 43.0 Blood Gas Critical Value Read Back E CABUNGCAL RN Blood Gas Notified Whom JLD Blood Gas Notified Time 05/01/2017 7:55:23 AM Medications Current Medications Aspirin (Aspirin) 325 mg DAILY NGT Last administered on 04/30/17 08:43; Admin Dose 325 MG; Start 04/12/17 at 09:00; Status Future Hold Metoprolol Tartrate (Lopressor) 5 mg Q4H PRN IV HR>110 Hold SBP<110 Last administered on 04/20/17 17:36; Admin Dose 5 MG; Start 04/11/17 at 13:30 Lansoprazole (Prevacid) 30 mg DAILY GTB Last administered on 05/01/17 08:40; Admin Dose 30 MG; Start 04/12/17 at 09:00 Miscellaneous Information 1 ea NOTE XX ; Start 04/11/17 at 16:30 Glucose (Glutose) 15 gm Q15M PRN PO DECREASED GLUCOSE; Start 04/11/17 at 16:30 Glucose (Glutose) 22.5 gm Q15M PRN PO DECREASED GLUCOSE; Start 04/11/17 at 16: 30 Dextrose (D50w Syringe) 25 ml Q15M PRN IV DECREASED GLUCOSE Last administered on 04/12/17 23:56; Admin Dose 25 ML; Start 04/11/17 at 16:30 Dextrose (D50w Syringe) 50 ml Q15M PRN IV DECREASED GLUCOSE; Start 04/11/17 at 16:30 Glucagon (Glucagen) 1 mg Q15M PRN IM DECREASED GLUCOSE; Start 04/11/17 at 16:30 Glucose (Glutose) 15 gm Q15M PRN BUCCAL DECREASED GLUCOSE; Start 04/11/17 at 16 :30 Metoclopramide HCl (Reglan) 10 mg Q6 IV Last administered on 05/01/17 06:28; Admin Dose 10 MG; Start 04/12/17 at 18:00 Insulin Aspart (Novolog Insulin Pen) NOVOLOG *MILD* ALGORI... Q6H SC Last administered on 04/30/17 05:59; Admin Dose 1 UNIT; Start 04/15/17 at 00:00 IV Flush (NS 10 ml) 10 ml PRN PRN IV FLUSH LINE; Start 04/15/17 at 13:00 Amiodarone HCl (Cordarone) 200 mg BID GTB Last administered on 05/01/17 08:55 ; Admin Dose 200 MG; Start 04/16/17 at 13:00 Enoxaparin Sodium (Lovenox) 40 mg HS SC Last administered on 04/17/17 20:38; Admin Dose 40 MG; Start 04/17/17 at 21:00; Status Future Hold Heparin Sodium (Porcine) (Heparin (5000 Units/0.5 ml)) 5,000 unit BID SC Last administered on 04/30/17 21:03; Admin Dose 5,000 UNIT; Start 04/18/17 at 16:22; Status Future Hold Citalopram Hydrobromide (Celexa) 20 mg DAILY NGT Last administered on 08:40; Admin Dose 20 MG; Start 04/19/17 at 09:00 Hydralazine HCl 20 mg 20 mg Q6H PRN IV sbp ABOVE 160 Last administered on 22:40; Admin Dose 20 MG; Start 04/18/17 at 18:30 Caspofungin/ Sodium Chloride (Cancidas/NS) 250 ml @ 250 mls/hr Q24H IV Last administered on 05/01/17 10:08; Admin Dose 250 MLS/HR; Start 04/21/17 at 10:00 Chlorhexidine Gluconate (Peridex) 15 ml BID MT Last administered on 05/01/17 08:40; Admin Dose 15 ML; Start 04/22/17 at 21:00 Vitamin A/Vitamin D (Vitamin A & D Oint) 1 applic TID TOP Last administered on 05/01/17 08:40; Admin Dose 1 APPLIC; Start 04/22/17 at 21:00 Vitamin A/Vitamin D (Vitamin A & D Oint) 1 applic TID PRN TOP DRYNESS Last administered on 04/22/17 15:29; Admin Dose 1 APPLIC; Start 04/22/17 at 15:00 Acetaminophen/ Hydrocodone Bitart ([place] (5/325)) 1 tab Q6H GTB Last administered on 05/01/17 08:55; Admin Dose 1 TAB; Start 04/22/17 at 21:30 Spironolactone (Aldactone) 25 mg DAILY NGT Last administered on 04/30/17 08:43 ; Admin Dose 25 MG; Start 04/25/17 at 19:00; Status Future Hold Diltiazem HCl 5 mg 5 mg Q1H PRN IV HEART RATE GREATER THAN 120 Last administered on 04/29/17 06:17; Admin Dose 5 MG; Start 04/29/17 at 05:00 Meropenem/Sodium Chloride (Merrem 500mg/50 ml(Pmx)) 50 ml @ 200 mls/hr Q12 IVPB Last administered on 05/01/17 08:56; Admin Dose 200 MLS/HR; Start at 12:00 Metoprolol Tartrate (Lopressor) 25 mg BID GTB Last administered on 04/30/17 21 :01; Admin Dose 25 MG; Start 04/30/17 at 21:00; Status Future Hold Valacyclovir HCl (Valtrex) 500 mg BID GTB Last administered on 05/01/17 08:40 ; Admin Dose 500 MG; Start 04/30/17 at 21:00 Metronidazole 500 mg 500 mg Q8 GTB Last administered on 05/01/17 06:27; Admin Dose 500 MG; Start 04/30/17 at 22:00 Albumin Human 100 ml @ 100 mls/hr Q8H IV Last administered on 05/01/17 10:00 ; Admin Dose 100 MLS/HR; Start 05/01/17 at 01:30; Stop 05/01/17 at 18:29 Dopamine HCl/ Dextrose 250 ml @ 4.875 mls/ hr TITRATE IV Last administered on 05/01/17 07:07; Admin Dose 48.75 MLS/HR; Start 05/01/17 at 02:30 Vasopressin/ Dextrose (Vasostrict/D5W) 60 ml @ 1.2 mls/hr Q12H IV Last administered on 05/01/17 02:48; Admin Dose 1.2 MLS/HR; Start 05/01/17 at 02:30 Hydrocortisone 100 mg 100 mg TID IV Last administered on 05/01/17 08:40; Admin Dose 100 MG; Start 05/01/17 at 09:00 Sodium Chloride 1,000 ml @ 0 mls/hr Q0M IV Last administered on 05/01/17 03: 00; Admin Dose 1,000 MLS/HR; Start 05/01/17 at 03:00 Sodium Chloride 1,000 ml @ 0 mls/hr Q0M IV Last administered on 05/01/17 04: 00; Admin Dose 1,000 MLS/HR; Start 05/01/17 at 03:30 Norepinephrine 16 mg/Dextrose 500 ml @ 1.87 mls/hr TITRATE IV Last administered on 05/01/17 10:13; Admin Dose 18.75 MLS/HR; Start 05/01/17 at 08: 00 Sodium Chloride (NS) 1,000 ml @ 100 mls/hr Q10H IV Last administered on 08:01; Admin Dose 100 MLS/HR; Start 05/01/17 at 07:00 Levalbuterol (Xopenex Hfa) 2 puff Q6 INH ; Start 05/01/17 at 10:00 Assessment/Plan Chief Complaint/Hosp Course IMP: 1. Septic shock secondary to above likely aspiration pneumonia. Now on mechanical ventilation via tracheostomy. 2. Multifocal pneumonia aspiration vs.HCAP, persistent leukocytosis chest x-ray shows improved lung aeration. 3. Hypercapnic Respiratory Failure--likely due to critical illness now extubated again on nasal cannula 4. Status post lactic acidosis. 5. Demand Ischemia, atrial fibrillation with rapid ventricular rate 6. Cholecystitis stable, not for surgical intervention at present 7. Significant anemia likely secondary to upper oropharyngeal bleed. RECS: 1. Continue mechanical ventilation. Not tolerating volume control ventilation will continue with pressure control ventilation. Patient may progressed ARDS. 2. Oral care. 3. Aspiration precautions. 4. Continue vasopressors 5. Continue antibiotics 6. Continue physical therapy 7. Palliative care evaluation 8. Consider increasing free water. Critical care time 40 minutes. Case d/w RN and patient's Discussed with staff prognosis very poor. Problems: DARWIN CRAWFORD MD, [facility] May 01, 2017 11:06
--- NOTE | 2017-05-01 14:09 | CONS ---
Date/Time of Note Date/Time of Note DATE: 05/01/17 TIME: 14:05 Assessment/Plan Assessment/Plan Chief Complaint/Hosp Course Patient was transferred to telemetry yesterday recorded there had emergent tracheostomy placed secondary to difficult intubation, currently in ICU on pressors Temperature 97.7 pulse 120 respirations 20 blood pressure 109/66 saturation 100 on vent WBC 44 H&H 6.8 and 22.3 platelets 339 neutrophils 71 bands 25 lymphs 1 monocyte 1 BN 80 creatinine 1.43 indwelling's: Trach, PEG, PICC line, Latif Antimicrobials: Flagyl Valtrex meropenem Cancidas Physical examination: Chronically ill-appearing elderly woman who is lying comfortably in bed. Head atraumatic, normocephalic sclera nonicteric bugle mucosa dry patient has wounds on her upper and lower lips neck is supple tracheostomy present chest rise symmetrical breath sounds with bilateral scattered crackles. Heart: S1-S2, tachycardic Abdomen soft bowel tones hypoactive. Extremities with bilateral edema. Skin pale with severe anasarca. 1. Sepsis with shock 2. Acute on chronic respiratory failure, possible aspiration 3. Leukocytosis, combination of sepsis and steroids induced 4. Fungemia with repeat blood cultures being negative 5. Rapid atrial fibrillation 6. Acute on chronic anemia Plan: Remains hemodynamically unstable, continue present care, antibiotics, vent management as per pulmonary, follow recommendations of consultants Discussed with staff discussed with at bedside Problems: Consultation Date/Type/Reason Admit Date/Time Apr 11, 2017 at 11:28 Initial Consult Date 04/12/17 Type of Consultation: id Referring Provider: NINA MACIEL DO Exam/Review of Systems Vital Signs Vitals Vital Signs Date Time Temp Pulse Resp B/P Pulse Ox O2 Delivery O2 Flow Rate FiO2 05/01/17 12:00 87 05/01/17 09:00 24 149/51 100 Mechanical Ventilator 05/01/17 08:00 97.7 05/01/17 08:00 100 05/01/17 00:30 15.0 Intake and Output 04/30/17 04/30/17 05/01/17 15:00 23:00 07:00 Intake Total 150 ml 600 ml 3185.85 ml Output Total 130 ml 300 ml 80 ml Balance 20 ml 300 ml 3105.85 ml Results Result Diagram: 05/01/17 0333 05/01/17 0754 Results 24 hrs Laboratory Tests Test 04/30/17 18:03 04/30/17 23:55 05/01/17 01:24 05/01/17 01:50 Bedside Glucose 136 91 81 Blood Gas Specimen Source Blood arterial Arterial Blood Date Drawn 05/01/2017 2:15:53 AM Arterial Blood pH (Temp corrected) 7.076 *L Arterial Blood pCO2 (Temp correct) 99.9 *H Arterial Blood pO2 (Temp corrected) 67.1 L Arterial Blood HCO3 28.7 H Arterial Blood Base Excess -2.1 Arterial Blood Oxygen Saturation 86.9 L Jonn Test N/A Arterial Blood Gas Puncture Site Right Brachial Arterial Blood Carboxyhemoglobin 0.2 Arterial Blood Methemoglobin 0.7 Blood Gas A-a O2 Differential 546.0 H Oxyhemoglobin Percent 86.1 L Total Hemoglobin 8.1 L Blood Gas Temperature 37.0 Blood Gas Respiration Rate 20.0 Blood Gas Actual Respiration Rate 20 Blood Gas Modality VENT - AC FiO2 100.0 Blood Gas Inspiratory Time 0.8 Blood Gas Mean Airway Pressure 15 Blood Gas High PEEP Setting 38.0 Blood Gas Low PEEP Setting 5.0 Blood Gas Critical Value Read Back NICKOLAS MICHEL Blood Gas Notified Whom MA Blood Gas Notified Time 05/01/2017 2:39:33 AM Test 05/01/17 02:01 05/01/17 03:33 05/01/17 07:54 05/01/17 07:59 White Blood Count 41.2 #H 44.0 H Red Blood Count 1.72 #L 1.90 L Hemoglobin 6.2 #*L 6.8 *L Hematocrit 20.9 #L 22.3 L Mean Corpuscular Volume 121.5 H 117.4 H Mean Corpuscular Hemoglobin 36.0 H 35.8 H Mean Corpuscular Hemoglobin Concent 29.7 L 30.5 L Red Cell Distribution Width 15.7 H 15.6 H Platelet Count 303 # 339 Mean Platelet Volume 12.6 H 12.2 H Neutrophils % 81.9 H 71.0 Lymphocytes % 9.5 L 1.0 L Monocytes % 4.6 1.0 Eosinophils % 0.1 1.0 Basophils % 0.1 Nucleated Red Blood Cells % 0.3 H Neutrophils # 33.7 H 31.2 H Lymphocytes # 3.9 H 0.4 L Monocytes # 1.9 H 0.4 Eosinophils # 0.1 0.4 Basophils # 0.0 Nucleated Red Blood Cells # 0.1 H Sodium Level 151 H 152 H 152 H Potassium Level 5.4 H 5.4 H 5.4 H Chloride Level 105 109 106 Carbon Dioxide Level 33 H 28 31 Anion Gap 18 H 20 H 20 H Blood Urea Nitrogen 81 H 81 H 80 H Creatinine 1.32 H 1.50 H 1.43 H Glucose Level 198 161 165 Calcium Level 7.8 L 7.8 L 8.3 L Total Bilirubin 0.0 L 0.0 L Direct Bilirubin 0.00 0.00 Indirect Bilirubin 0.0 0.0 Aspartate Amino Transf (AST/SGOT) 727 H 982 H Alanine Aminotransferase (ALT/SGPT) 428 H 558 H Alkaline Phosphatase 69 87 Total Protein 3.2 #L 5.1 #L Albumin 1.6 L 2.8 #L Globulin 1.60 2.30 Albumin/Globulin Ratio 1.00 1.21 Band Neutrophils % 25.0 H Metamyelocytes % (manual) 1 H Metamyelocytes # 0.4 Anisocytosis 1+ Macrocytosis 2+ Phosphorus Level 6.9 #H Magnesium Level 2.7 H Prothrombin Time 17.4 #H Prothrombin Time Ratio 1.4 INR International Normalized Ratio 1.42 Bedside Glucose 144 Test 05/01/17 08:00 05/01/17 11:46 Blood Gas Specimen Source Blood arterial Arterial Blood Date Drawn 05/01/2017 7:40:06 AM Arterial Blood pH (Temp corrected) 7.293 *L Arterial Blood pCO2 (Temp correct) 57.6 H Arterial Blood pO2 (Temp corrected) 138.8 H Arterial Blood HCO3 27.3 H Arterial Blood Base Excess 0.3 Arterial Blood Oxygen Saturation 98.3 H Jonn Test ACCEPTAB Arterial Blood Gas Puncture Site Right Radial Arterial Blood Carboxyhemoglobin 0.3 Arterial Blood Methemoglobin 0.5 Blood Gas A-a O2 Differential 516.6 H Oxyhemoglobin Percent 97.5 Total Hemoglobin 8.4 L Blood Gas Temperature 37.0 Blood Gas Respiration Rate 20.0 Blood Gas Actual Respiration Rate 25 Blood Gas Modality VENT - PC FiO2 100.0 Blood Gas Low PEEP Setting 5.0 Blood Gas Inspiratory Pressure 43.0 Blood Gas Critical Value Read Back E WIL MICHEL Blood Gas Notified Whom MATT Blood Gas Notified Time 05/01/2017 7:55:23 AM Bedside Glucose 139 Medications Medications Current Medications Aspirin (Aspirin) 325 mg DAILY NGT Last administered on 04/30/17 08:43; Admin Dose 325 MG; Start 04/12/17 at 09:00; Status Future Hold Metoprolol Tartrate (Lopressor) 5 mg Q4H PRN IV HR>110 Hold SBP<110 Last administered on 04/20/17 17:36; Admin Dose 5 MG; Start 04/11/17 at 13:30 Lansoprazole (Prevacid) 30 mg DAILY GTB Last administered on 05/01/17 08:40; Admin Dose 30 MG; Start 04/12/17 at 09:00 Miscellaneous Information 1 ea NOTE XX ; Start 04/11/17 at 16:30 Glucose (Glutose) 15 gm Q15M PRN PO DECREASED GLUCOSE; Start 04/11/17 at 16:30 Glucose (Glutose) 22.5 gm Q15M PRN PO DECREASED GLUCOSE; Start 04/11/17 at 16: 30 Dextrose (D50w Syringe) 25 ml Q15M PRN IV DECREASED GLUCOSE Last administered on 04/12/17 23:56; Admin Dose 25 ML; Start 04/11/17 at 16:30 Dextrose (D50w Syringe) 50 ml Q15M PRN IV DECREASED GLUCOSE; Start 04/11/17 at 16:30 Glucagon (Glucagen) 1 mg Q15M PRN IM DECREASED GLUCOSE; Start 04/11/17 at 16:30 Glucose (Glutose) 15 gm Q15M PRN BUCCAL DECREASED GLUCOSE; Start 04/11/17 at 16 :30 Metoclopramide HCl (Reglan) 10 mg Q6 IV Last administered on 05/01/17 11:48; Admin Dose 10 MG; Start 04/12/17 at 18:00 Insulin Aspart (Novolog Insulin Pen) NOVOLOG *MILD* ALGORI... Q6H SC Last administered on 04/30/17 05:59; Admin Dose 1 UNIT; Start 04/15/17 at 00:00 IV Flush (NS 10 ml) 10 ml PRN PRN IV FLUSH LINE; Start 04/15/17 at 13:00 Amiodarone HCl (Cordarone) 200 mg BID GTB Last administered on 05/01/17 08:55 ; Admin Dose 200 MG; Start 04/16/17 at 13:00 Enoxaparin Sodium (Lovenox) 40 mg HS SC Last administered on 04/17/17 20:38; Admin Dose 40 MG; Start 04/17/17 at 21:00; Status Future Hold Heparin Sodium (Porcine) (Heparin (5000 Units/0.5 ml)) 5,000 unit BID SC Last administered on 04/30/17 21:03; Admin Dose 5,000 UNIT; Start 04/18/17 at 16:22; Status Future Hold Citalopram Hydrobromide (Celexa) 20 mg DAILY NGT Last administered on 08:40; Admin Dose 20 MG; Start 04/19/17 at 09:00 Hydralazine HCl 20 mg 20 mg Q6H PRN IV sbp ABOVE 160 Last administered on 22:40; Admin Dose 20 MG; Start 04/18/17 at 18:30 Caspofungin/ Sodium Chloride (Cancidas/NS) 250 ml @ 250 mls/hr Q24H IV Last administered on 05/01/17 10:08; Admin Dose 250 MLS/HR; Start 04/21/17 at 10:00 Chlorhexidine Gluconate (Peridex) 15 ml BID MT Last administered on 05/01/17 08:40; Admin Dose 15 ML; Start 04/22/17 at 21:00 Vitamin A/Vitamin D (Vitamin A & D Oint) 1 applic TID TOP Last administered on 05/01/17 13:38; Admin Dose 1 APPLIC; Start 04/22/17 at 21:00 Vitamin A/Vitamin D (Vitamin A & D Oint) 1 applic TID PRN TOP DRYNESS Last administered on 04/22/17 15:29; Admin Dose 1 APPLIC; Start 04/22/17 at 15:00 Acetaminophen/ Hydrocodone Bitart ([place] (5/325)) 1 tab Q6H GTB Last administered on 05/01/17 08:55; Admin Dose 1 TAB; Start 04/22/17 at 21:30 Spironolactone (Aldactone) 25 mg DAILY NGT Last administered on 04/30/17 08:43 ; Admin Dose 25 MG; Start 04/25/17 at 19:00; Status Future Hold Diltiazem HCl 5 mg 5 mg Q1H PRN IV HEART RATE GREATER THAN 120 Last administered on 04/29/17 06:17; Admin Dose 5 MG; Start 04/29/17 at 05:00 Meropenem/Sodium Chloride (Merrem 500mg/50 ml(Pmx)) 50 ml @ 200 mls/hr Q12 IVPB Last administered on 05/01/17 08:56; Admin Dose 200 MLS/HR; Start at 12:00 Metoprolol Tartrate (Lopressor) 25 mg BID GTB Last administered on 04/30/17 21 :01; Admin Dose 25 MG; Start 04/30/17 at 21:00; Status Future Hold Valacyclovir HCl (Valtrex) 500 mg BID GTB Last administered on 05/01/17 08:40 ; Admin Dose 500 MG; Start 04/30/17 at 21:00 Metronidazole 500 mg 500 mg Q8 GTB Last administered on 05/01/17 13:38; Admin Dose 500 MG; Start 04/30/17 at 22:00 Albumin Human 100 ml @ 100 mls/hr Q8H IV Last administered on 05/01/17 10:00 ; Admin Dose 100 MLS/HR; Start 05/01/17 at 01:30; Stop 05/01/17 at 18:29 Dopamine HCl/ Dextrose 250 ml @ 4.875 mls/ hr TITRATE IV Last administered on 05/01/17 07:07; Admin Dose 48.75 MLS/HR; Start 05/01/17 at 02:30 Vasopressin/ Dextrose (Vasostrict/D5W) 60 ml @ 1.2 mls/hr Q12H IV Last administered on 05/01/17 02:48; Admin Dose 1.2 MLS/HR; Start 05/01/17 at 02:30 Hydrocortisone 100 mg 100 mg TID IV Last administered on 05/01/17 13:38; Admin Dose 100 MG; Start 05/01/17 at 09:00 Sodium Chloride 1,000 ml @ 0 mls/hr Q0M IV Last administered on 05/01/17 03: 00; Admin Dose 1,000 MLS/HR; Start 05/01/17 at 03:00 Sodium Chloride 1,000 ml @ 0 mls/hr Q0M IV Last administered on 05/01/17 04: 00; Admin Dose 1,000 MLS/HR; Start 05/01/17 at 03:30 Norepinephrine 16 mg/Dextrose 500 ml @ 1.87 mls/hr TITRATE IV Last administered on 05/01/17 10:13; Admin Dose 18.75 MLS/HR; Start 05/01/17 at 08: 00 Sodium Chloride (NS) 1,000 ml @ 100 mls/hr Q10H IV Last administered on 08:01; Admin Dose 100 MLS/HR; Start 05/01/17 at 07:00 LORETO MCKEON NP May 01, 2017 14:09
[2017-05-02] VITALS (53 sets, daily range): BP systolic 105–171; BP diastolic 62–114; PULSE 83–120; RESP 0–25
[2017-05-02] MEDS: LEVALBUTEROL (HFA) 15 GM INHALER INH SCH ×4 (02:00→19:22)
[2017-05-02] MEDS: VASOPRESSIN 60 UNIT in DEXTROSE 5% 57 ML IV SCH ×2 (02:30→13:59)
[2017-05-02] MEDS: SOD CHLORIDE 0.9% 1,000 ML IV SCH (03:25)
[2017-05-02] MEDS: HYDROCODONE/APAP (5/325) TAB GTB SCH ×4 (03:34→21:18)
[2017-05-02 05:03] LABS: ADD SCAN DIFF NO
[2017-05-02 05:12] LABS: ABNORMAL IP MESSAGE 1; BASOPHILS % 0.1 % (0.0-2.0); HEMATOCRIT 20.5 % (37.0-47.0); LYMPHOCYTES # 0.7 10^3/ul (0.8-2.9); LYMPHOCYTES % 2.2 % (15.0-51.0); MEAN CORPUSCULAR HGB CONC 33.7 g/dl (32.0-37.0); MEAN CORPUSCULAR VOLUME 98.1 fl (82.0-101.0); MEAN PLATELET VOLUME 12.6 fl (7.4-10.4); MONOCYTE # 0.8 10^3/ul (0.3-0.9); MONOCYTES % 2.6 % (0.0-11.0); NEUTROPHIL # 30.6 10^3/ul (1.6-7.5); PLATELET COUNT 129 10^3/UL (140-415); RED BLOOD COUNT 2.09 10^6/ul (4.20-5.40); RED CELL DISTRIBUTION WIDTH 20.3 % (11.5-14.5); WHITE BLOOD COUNT 32.6 10^3/ul (4.8-10.8)
[2017-05-02 05:33] LABS: CALCIUM 8.7 mg/dl (8.4-10.2); CREATININE 1.67 mg/dl (0.44-1.00); MAGNESIUM 2.3 mg/dl (1.7-2.5); PHOSPHORUS 4.7 mg/dl (2.5-4.9); POTASSIUM 4.7 mmol/L (3.5-5.1)
[2017-05-02] MEDS: INSULIN ASPART [NOVOLOG] 3 ML PEN SC SCH ×3 (06:00→17:23)
[2017-05-02 06:22] LABS: HEMOGLOBIN 6.9 g/dl (12.0-16.0); NEUTROPHILS % 93.9 % (39.0-77.0)
[2017-05-02] MEDS: METOCLOPRAMIDE 10 MG INJ IV SCH ×3 (06:25→17:23)
[2017-05-02] MEDS: LEVOTHYROXINE 75 MCG TAB GTB SCH (06:26)
[2017-05-02] MEDS: metroNIDAZOLE 500 MG TAB GTB SCH ×4 (06:26→21:17)
--- NOTE | 2017-05-02 08:00 | CONS ---
Date/Time of Note Date/Time of Note DATE: 05/02/17 TIME: 07:53 Consultation Date/Type/Reason Admit Date/Time Apr 11, 2017 at 11:28 Date of Consultation: May 01, 2017 Brief note and family conference I had an extensiv conversation with pts and primarily listened to his frustration with Mrs Glasgow downhill course.He is very cognizant of her plethora of acute on chronic medical problems. He is receptive discussing changing code and goals of care and especially after cardiac arrest. Follow up meeting tomorrow morning May 02. More extensive PC note after tomorrows follow up. Respiratory: no complaints, shortness of breath Cardiovascular: no complaints Gastrointestinal: no complaints, vomiting Musculoskeletal: no complaints Skin: no complaints Neurologic: no complaints Past Medical History Medical History: cancer (tongue), high cholesterol, hypertension, hypothyroid, renal disease, other (dysphagia w/ recurrent aspiration pneumonia, atrial fibrillation, steroid dependence) Past Surgical History Past Surgical Hx: other (G tube, prior trach, tongue resection) Social History Alcohol Use: none Smoking Status: Never smoker Drug Use: none Exam/Review of Systems Vital Signs Vitals Vital Signs Date Time Temp Pulse Resp B/P Pulse Ox O2 Delivery O2 Flow Rate FiO2 05/02/17 06:00 95 24 142/71 100 Mechanical Ventilator 05/02/17 05:11 50 05/02/17 04:00 97.5 05/01/17 00:30 15.0 Intake and Output 05/01/17 05/01/17 05/02/17 15:00 23:00 07:00 Intake Total 1671.56 ml 1080 ml 700 ml Output Total 55 ml 75 ml 45 ml Balance 1616.56 ml 1005 ml 655 ml Results Result Diagram: 05/02/17 0330 05/02/17 0330 Results 24 hrs Laboratory Tests Test 05/01/17 07:54 05/01/17 07:59 05/01/17 08:00 05/01/17 11:46 Prothrombin Time 17.4 #H Prothrombin Time Ratio 1.4 INR International Normalized Ratio 1.42 Sodium Level 152 H Potassium Level 5.4 H Chloride Level 106 Carbon Dioxide Level 31 Anion Gap 20 H Blood Urea Nitrogen 80 H Creatinine 1.43 H Glucose Level 165 Calcium Level 8.3 L Total Bilirubin 0.0 L Direct Bilirubin 0.00 Indirect Bilirubin 0.0 Aspartate Amino Transf (AST/SGOT) 982 H Alanine Aminotransferase (ALT/SGPT) 558 H Alkaline Phosphatase 87 Total Protein 5.1 #L Albumin 2.8 #L Globulin 2.30 Albumin/Globulin Ratio 1.21 Bedside Glucose 144 139 Blood Gas Specimen Source Blood arterial Arterial Blood Date Drawn 05/01/2017 7:40:06 AM Arterial Blood pH (Temp corrected) 7.293 *L Arterial Blood pCO2 (Temp correct) 57.6 H Arterial Blood pO2 (Temp corrected) 138.8 H Arterial Blood HCO3 27.3 H Arterial Blood Base Excess 0.3 Arterial Blood Oxygen Saturation 98.3 H Jonn Test ACCEPTAB Arterial Blood Gas Puncture Site Right Radial Arterial Blood Carboxyhemoglobin 0.3 Arterial Blood Methemoglobin 0.5 Blood Gas A-a O2 Differential 516.6 H Oxyhemoglobin Percent 97.5 Total Hemoglobin 8.4 L Blood Gas Temperature 37.0 Blood Gas Respiration Rate 20.0 Blood Gas Actual Respiration Rate 25 Blood Gas Modality VENT - PC FiO2 100.0 Blood Gas Low PEEP Setting 5.0 Blood Gas Inspiratory Pressure 43.0 Blood Gas Critical Value Read Back E WIL RN Blood Gas Notified Whom JLD Blood Gas Notified Time 05/01/2017 7:55:23 AM Test 05/01/17 16:30 05/01/17 17:41 05/01/17 23:42 05/02/17 03:30 Lactic Acid Level 1.1 Bedside Glucose 128 106 White Blood Count 32.6 #H Red Blood Count 2.09 L Hemoglobin 6.9 *L Hematocrit 20.5 L Mean Corpuscular Volume 98.1 Mean Corpuscular Hemoglobin 33.0 Mean Corpuscular Hemoglobin Concent 33.7 Red Cell Distribution Width 20.3 #H Platelet Count 129 #L Mean Platelet Volume 12.6 H Neutrophils % 93.9 H Lymphocytes % 2.2 L Monocytes % 2.6 Eosinophils % 0.0 Basophils % 0.1 Neutrophils # 30.6 H Lymphocytes # 0.7 L Monocytes # 0.8 Eosinophils # 0.0 Basophils # 0.0 Nucleated Red Blood Cells # 0.0 Sodium Level 153 H Potassium Level 4.7 Chloride Level 111 H Carbon Dioxide Level 29 Anion Gap 18 H Blood Urea Nitrogen 80 H Creatinine 1.67 H Glucose Level 86 # Calcium Level 8.7 Phosphorus Level 4.7 # Magnesium Level 2.3 Test 05/02/17 05:21 05/02/17 06:27 Lab Scanned Report BLOOD TRANSFUSION Bedside Glucose 98 Medications Medications Current Medications Aspirin (Aspirin) 325 mg DAILY NGT Last administered on 04/30/17 08:43; Admin Dose 325 MG; Start 04/12/17 at 09:00; Status Future Hold Metoprolol Tartrate (Lopressor) 5 mg Q4H PRN IV HR>110 Hold SBP<110 Last administered on 04/20/17 17:36; Admin Dose 5 MG; Start 04/11/17 at 13:30 Lansoprazole (Prevacid) 30 mg DAILY GTB Last administered on 05/01/17 08:40; Admin Dose 30 MG; Start 04/12/17 at 09:00 Miscellaneous Information 1 ea NOTE XX ; Start 04/11/17 at 16:30 Glucose (Glutose) 15 gm Q15M PRN PO DECREASED GLUCOSE; Start 04/11/17 at 16:30 Glucose (Glutose) 22.5 gm Q15M PRN PO DECREASED GLUCOSE; Start 04/11/17 at 16: 30 Dextrose (D50w Syringe) 25 ml Q15M PRN IV DECREASED GLUCOSE Last administered on 04/12/17 23:56; Admin Dose 25 ML; Start 04/11/17 at 16:30 Dextrose (D50w Syringe) 50 ml Q15M PRN IV DECREASED GLUCOSE; Start 04/11/17 at 16:30 Glucagon (Glucagen) 1 mg Q15M PRN IM DECREASED GLUCOSE; Start 04/11/17 at 16:30 Glucose (Glutose) 15 gm Q15M PRN BUCCAL DECREASED GLUCOSE; Start 04/11/17 at 16 :30 Metoclopramide HCl (Reglan) 10 mg Q6 IV Last administered on 05/02/17 06:25; Admin Dose 10 MG; Start 04/12/17 at 18:00 Insulin Aspart (Novolog Insulin Pen) NOVOLOG *MILD* ALGORI... Q6H SC Last administered on 04/30/17 05:59; Admin Dose 1 UNIT; Start 04/15/17 at 00:00 IV Flush (NS 10 ml) 10 ml PRN PRN IV FLUSH LINE; Start 04/15/17 at 13:00 Amiodarone HCl (Cordarone) 200 mg BID GTB Last administered on 05/01/17 20:32 ; Admin Dose 200 MG; Start 04/16/17 at 13:00 Enoxaparin Sodium (Lovenox) 40 mg HS SC Last administered on 04/17/17 20:38; Admin Dose 40 MG; Start 04/17/17 at 21:00; Status Future Hold Heparin Sodium (Porcine) (Heparin (5000 Units/0.5 ml)) 5,000 unit BID SC Last administered on 04/30/17 21:03; Admin Dose 5,000 UNIT; Start 04/18/17 at 16:22; Status Future Hold Citalopram Hydrobromide (Celexa) 20 mg DAILY NGT Last administered on 08:40; Admin Dose 20 MG; Start 04/19/17 at 09:00 Hydralazine HCl 20 mg 20 mg Q6H PRN IV sbp ABOVE 160 Last administered on 22:40; Admin Dose 20 MG; Start 04/18/17 at 18:30 Caspofungin/ Sodium Chloride (Cancidas/NS) 250 ml @ 250 mls/hr Q24H IV Last administered on 05/01/17 10:08; Admin Dose 250 MLS/HR; Start 04/21/17 at 10:00 Chlorhexidine Gluconate (Peridex) 15 ml BID MT Last administered on 05/01/17 20:32; Admin Dose 15 ML; Start 04/22/17 at 21:00 Vitamin A/Vitamin D (Vitamin A & D Oint) 1 applic TID TOP Last administered on 05/01/17 20:32; Admin Dose 1 APPLIC; Start 04/22/17 at 21:00 Vitamin A/Vitamin D (Vitamin A & D Oint) 1 applic TID PRN TOP DRYNESS Last administered on 04/22/17 15:29; Admin Dose 1 APPLIC; Start 04/22/17 at 15:00 Acetaminophen/ Hydrocodone Bitart ([place] (5/325)) 1 tab Q6H GTB Last administered on 05/02/17 03:34; Admin Dose 1 TAB; Start 04/22/17 at 21:30 Spironolactone (Aldactone) 25 mg DAILY NGT Last administered on 04/30/17 08:43 ; Admin Dose 25 MG; Start 04/25/17 at 19:00; Status Future Hold Diltiazem HCl 5 mg 5 mg Q1H PRN IV HEART RATE GREATER THAN 120 Last administered on 04/29/17 06:17; Admin Dose 5 MG; Start 04/29/17 at 05:00 Meropenem/Sodium Chloride (Merrem 500mg/50 ml(Pmx)) 50 ml @ 200 mls/hr Q12 IVPB Last administered on 05/01/17 20:32; Admin Dose 200 MLS/HR; Start at 12:00 Metoprolol Tartrate (Lopressor) 25 mg BID GTB Last administered on 04/30/17 21 :01; Admin Dose 25 MG; Start 04/30/17 at 21:00; Status Future Hold Valacyclovir HCl (Valtrex) 500 mg BID GTB Last administered on 05/01/17 21:25 ; Admin Dose 500 MG; Start 04/30/17 at 21:00 Metronidazole 500 mg 500 mg Q8 GTB Last administered on 05/02/17 06:26; Admin Dose 500 MG; Start 04/30/17 at 22:00 Dopamine HCl/ Dextrose 250 ml @ 4.875 mls/ hr TITRATE IV Last administered on 05/01/17 07:07; Admin Dose 48.75 MLS/HR; Start 05/01/17 at 02:30 Vasopressin/ Dextrose (Vasostrict/D5W) 60 ml @ 1.2 mls/hr Q12H IV Last administered on 05/01/17 02:48; Admin Dose 1.2 MLS/HR; Start 05/01/17 at 02:30 Hydrocortisone 100 mg 100 mg TID IV Last administered on 05/01/17 20:32; Admin Dose 100 MG; Start 05/01/17 at 09:00 Sodium Chloride 1,000 ml @ 0 mls/hr Q0M IV Last administered on 05/01/17 03: 00; Admin Dose 1,000 MLS/HR; Start 05/01/17 at 03:00 Sodium Chloride 1,000 ml @ 0 mls/hr Q0M IV Last administered on 05/01/17 04: 00; Admin Dose 1,000 MLS/HR; Start 05/01/17 at 03:30 Norepinephrine 16 mg/Dextrose 500 ml @ 1.87 mls/hr TITRATE IV Last administered on 7/20/17at 10:13; Admin Dose 18.75 MLS/HR; Start 05/01/17 at 08: 00 Dextrose (D5W) 1,000 ml @ 75 mls/hr [id number] IV ; Start 05/02/17 at 07:30 YVONNE ADAMS May 02, 2017 08:00
[2017-05-02 08:01] LABS: AADO2 Arterial 259.8 mmHg (7.0-24.0); Allen Test ACCEPTAB; Arterial Base Excess 0.3 mmol/L (-3.0-3); Arterial COHb 0.3 % (0.0-3.0); Arterial Fraction of Oxyhgb 89.1 % (93.0-99.0); Arterial HCO3 24.1 mmol/L (22.0-26.0); Arterial MetHb 0.8 % (0.0-1.5); Arterial Total Hemglobin 7.6 g/dl (12.0-18.0); MODE VENT - PC
--- NOTE | 2017-05-02 08:09 | PN ---
Date/Time of Note Date/Time of Note DATE: 05/02/17 TIME: 08:04 Assessment/Plan VTE Prophylaxis VTE Prophylaxis Intervention: other Lines/Catheters IV Catheter Type (from Nrs): PICC Line Central line still needed: Yes Urinary Cath still in place: Yes Reason Cath still needed: other (indicate) Assessment/Plan Chief Complaint/Hosp Course 1. Status post code arrest -Etiology secondary to sepsis, hypoxemic failure -Patient was coded 30 minutes with spontaneous return of circulation We will continue to monitor 2. Hypoxemic respiratory failure secondary to aspiration pneumonia, shock -Patient intubated -Patient status post emergent tracheostomy -ABG chest x-ray reviewed -We will follow-up with pulmonary, ENT consult placed with Dr. Carpio 2. Anuric Ken[place]. With previously normal baseline creatinine. Etiology is likely secondary to septic KENRICK, ATN -Patient off pressors, will give diuretic challenge with Lasix 60 mg IV -Follow-up renal panel - 3. Hyperkalemia secondary to acute kidney injury acidemia Improved Continue to monitor 3. Sepsis status post shock Etiology secondary to aspiration pneumonia, fungemia Patient is on broad-spectrum antibiotics, antifungals, - Patient's blood cultures have been reviewed. - Continue current treatment plan Follow-up with infectious disease 4. Volume overload. Etiology likely secondary to sepsis capillary leak, diastolic heart failure. -Patient is currently anuric acute kidney injury -We will give diuretic challenge If no response may require dialysis 6. History of adrenal insufficiency. -Patient currently on stress steroids, -Appreciate endocrinology evaluation 7. Acute encephalopathy etiologies toxic metabolic, possible anoxic injury. Mental status is improving, patient following commands CT scan showed no acute finding Appreciate Dr. Ellis evaluation -Continue to monitor closely 8. Hypernatremia -Patient has a free water deficit of approximately 4 L -All piggybacks placed in D5 water We will start D5 water Monitor 9. Hypothyroidism continue Synthroid 10. Anemia. -With apparent oral facial bleed, epistaxis -Patient will receive 2 units of PRBC ENT or GI evaluation placed 11. Mineral bone disorder will monitor calcium phosphorus levels 12. h/o tongue cancer with resection 13. History of diastolic heart failure/coronary disease -Continue medical management 14. Leukocytosis. -Etiology is likely secondary sepsis, steroids. -Monitor - Follow-up with infectious disease. 15. Hypomagnesemia. Continue to monitor and replete as needed 16. Left upper extremity DVT. -Hold aspirin heparin setting of bleed 17. Dysphagia status post PEG Hold tube feedings at this time 18. Arrhythmia Status post amiodarone drip Follow-up with cardio 19. ?cholecystitis -Patient's HIDA scan was positive - cholecystostomy drain was not placed due to insufficient fluid. -No plan for drain placement at this time. I discussed case with general surgery Appreciate surgery's evaluation. 20. 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 Ellis's evaluation Continue supportive care I spent greater than 40 minutes of critical care time with this pt Problems: Subjective 24 Hr Interval Summary Free Text/Dictation Patient is critically ill. Patient off pressors Urinary output remains minimal Patient able to follow very simple commands Continues to have coffee-ground aspirate from the G-tube Continues to have oozing from the oral pharyngeal region Exam/Review of Systems Vital Signs Vitals Vital Signs Date Time Temp Pulse Resp B/P Pulse Ox O2 Delivery O2 Flow Rate FiO2 05/02/17 06:00 95 24 142/71 100 Mechanical Ventilator 05/02/17 05:11 50 05/02/17 04:00 97.5 05/01/17 00:30 15.0 Intake and Output 05/01/17 05/01/17 05/02/17 15:00 23:00 07:00 Intake Total 1671.56 ml 1080 ml 700 ml Output Total 55 ml 75 ml 45 ml Balance 1616.56 ml 1005 ml 655 ml Exam General. Critically ill HEENT: Head is normocephalic. NECK: Trach HEART: Irregular LUNGS: Show diminished breath sounds at base. ABDOMEN: Soft, nontender to palpation without rebound or guarding. EXTREMITIES: Negative for clubbing, cyanosis. Positive edema diffuse anasarca DERMATOLOGIC: No rashes. MUSCULOSKELETAL: No joint effusions, NEUROLOGIC: Patient obtunded Results Result Diagram: 05/02/17 0330 05/02/17 0330 Results 24 hrs Laboratory Tests Test 05/01/17 11:46 05/01/17 16:30 05/01/17 17:41 05/01/17 23:42 Bedside Glucose 139 128 106 Lactic Acid Level 1.1 Test 05/02/17 03:30 05/02/17 05:21 05/02/17 06:27 05/02/17 07:00 White Blood Count 32.6 #H Red Blood Count 2.09 L Hemoglobin 6.9 *L Hematocrit 20.5 L Mean Corpuscular Volume 98.1 Mean Corpuscular Hemoglobin 33.0 Mean Corpuscular Hemoglobin Concent 33.7 Red Cell Distribution Width 20.3 #H Platelet Count 129 #L Mean Platelet Volume 12.6 H Neutrophils % 93.9 H Lymphocytes % 2.2 L Monocytes % 2.6 Eosinophils % 0.0 Basophils % 0.1 Neutrophils # 30.6 H Lymphocytes # 0.7 L Monocytes # 0.8 Eosinophils # 0.0 Basophils # 0.0 Nucleated Red Blood Cells # 0.0 Sodium Level 153 H Potassium Level 4.7 Chloride Level 111 H Carbon Dioxide Level 29 Anion Gap 18 H Blood Urea Nitrogen 80 H Creatinine 1.67 H Glucose Level 86 # Calcium Level 8.7 Phosphorus Level 4.7 # Magnesium Level 2.3 Lab Scanned Report BLOOD TRANSFUSION Bedside Glucose 98 Blood Gas Specimen Source Blood arterial Arterial Blood Date Drawn 05/02/2017 7:20:03 AM Arterial Blood pH (Temp corrected) 7.459 H Arterial Blood pCO2 (Temp correct) 34.7 L Arterial Blood pO2 (Temp corrected) 57.7 L Arterial Blood HCO3 24.1 Arterial Blood Base Excess 0.3 Arterial Blood Oxygen Saturation 90.1 L Jonn Test ACCEPTAB Arterial Blood Gas Puncture Site Right Radial Arterial Blood Carboxyhemoglobin 0.3 Arterial Blood Methemoglobin 0.8 Blood Gas A-a O2 Differential 259.8 H Oxyhemoglobin Percent 89.1 L Total Hemoglobin 7.6 L Blood Gas Temperature 37.0 Blood Gas Respiration Rate 24.0 Blood Gas Actual Respiration Rate 24 Blood Gas Modality VENT - PC FiO2 50.0 Blood Gas Low PEEP Setting 5.0 Blood Gas Inspiratory Pressure 43.0 Blood Gas Notified Whom JLD Blood Gas Notified Time 05/02/2017 8:00:48 AM Medications Medications Current Medications Aspirin (Aspirin) 325 mg DAILY NGT Last administered on 04/30/17 08:43; Admin Dose 325 MG; Start 04/12/17 at 09:00; Status Future Hold Metoprolol Tartrate (Lopressor) 5 mg Q4H PRN IV HR>110 Hold SBP<110 Last administered on 04/20/17 17:36; Admin Dose 5 MG; Start 04/11/17 at 13:30 Lansoprazole (Prevacid) 30 mg DAILY GTB Last administered on 05/01/17 08:40; Admin Dose 30 MG; Start 04/12/17 at 09:00 Miscellaneous Information 1 ea NOTE XX ; Start 04/11/17 at 16:30 Glucose (Glutose) 15 gm Q15M PRN PO DECREASED GLUCOSE; Start 04/11/17 at 16:30 Glucose (Glutose) 22.5 gm Q15M PRN PO DECREASED GLUCOSE; Start 04/11/17 at 16: 30 Dextrose (D50w Syringe) 25 ml Q15M PRN IV DECREASED GLUCOSE Last administered on 04/12/17 23:56; Admin Dose 25 ML; Start 04/11/17 at 16:30 Dextrose (D50w Syringe) 50 ml Q15M PRN IV DECREASED GLUCOSE; Start 04/11/17 at 16:30 Glucagon (Glucagen) 1 mg Q15M PRN IM DECREASED GLUCOSE; Start 04/11/17 at 16:30 Glucose (Glutose) 15 gm Q15M PRN BUCCAL DECREASED GLUCOSE; Start 04/11/17 at 16 :30 Metoclopramide HCl (Reglan) 10 mg Q6 IV Last administered on 05/02/17 06:25; Admin Dose 10 MG; Start 04/12/17 at 18:00 Insulin Aspart (Novolog Insulin Pen) NOVOLOG *MILD* ALGORI... Q6H SC Last administered on 04/30/17 05:59; Admin Dose 1 UNIT; Start 04/15/17 at 00:00 IV Flush (NS 10 ml) 10 ml PRN PRN IV FLUSH LINE; Start 04/15/17 at 13:00 Amiodarone HCl (Cordarone) 200 mg BID GTB Last administered on 05/01/17 20:32 ; Admin Dose 200 MG; Start 04/16/17 at 13:00 Heparin Sodium (Porcine) (Heparin (5000 Units/0.5 ml)) 5,000 unit BID SC Last administered on 04/30/17 21:03; Admin Dose 5,000 UNIT; Start 04/18/17 at 16:22; Status Future Hold Citalopram Hydrobromide (Celexa) 20 mg DAILY NGT Last administered on 08:40; Admin Dose 20 MG; Start 04/19/17 at 09:00 Hydralazine HCl 20 mg 20 mg Q6H PRN IV sbp ABOVE 160 Last administered on 22:40; Admin Dose 20 MG; Start 04/18/17 at 18:30 Caspofungin/ Sodium Chloride (Cancidas/NS) 250 ml @ 250 mls/hr Q24H IV Last administered on 05/01/17 10:08; Admin Dose 250 MLS/HR; Start 04/21/17 at 10:00 Chlorhexidine Gluconate (Peridex) 15 ml BID MT Last administered on 05/01/17 20:32; Admin Dose 15 ML; Start 04/22/17 at 21:00 Vitamin A/Vitamin D (Vitamin A & D Oint) 1 applic TID TOP Last administered on 05/01/17 20:32; Admin Dose 1 APPLIC; Start 04/22/17 at 21:00 Vitamin A/Vitamin D (Vitamin A & D Oint) 1 applic TID PRN TOP DRYNESS Last administered on 04/22/17 15:29; Admin Dose 1 APPLIC; Start 04/22/17 at 15:00 Acetaminophen/ Hydrocodone Bitart ([place] (5/325)) 1 tab Q6H GTB Last administered on 05/02/17 03:34; Admin Dose 1 TAB; Start 04/22/17 at 21:30 Spironolactone (Aldactone) 25 mg DAILY NGT Last administered on 04/30/17 08:43 ; Admin Dose 25 MG; Start 04/25/17 at 19:00; Status Future Hold Diltiazem HCl 5 mg 5 mg Q1H PRN IV HEART RATE GREATER THAN 120 Last administered on 04/29/17 06:17; Admin Dose 5 MG; Start 04/29/17 at 05:00 Meropenem/Sodium Chloride (Merrem 500mg/50 ml(Pmx)) 50 ml @ 200 mls/hr Q12 IVPB Last administered on 05/01/17 20:32; Admin Dose 200 MLS/HR; Start at 12:00 Metoprolol Tartrate (Lopressor) 25 mg BID GTB Last administered on 04/30/17 21 :01; Admin Dose 25 MG; Start 04/30/17 at 21:00; Status Future Hold Valacyclovir HCl (Valtrex) 500 mg BID GTB Last administered on 05/01/17 21:25 ; Admin Dose 500 MG; Start 04/30/17 at 21:00 Metronidazole 500 mg 500 mg Q8 GTB Last administered on 05/02/17 06:26; Admin Dose 500 MG; Start 04/30/17 at 22:00 Dopamine HCl/ Dextrose 250 ml @ 4.875 mls/ hr TITRATE IV Last administered on 05/01/17 07:07; Admin Dose 48.75 MLS/HR; Start 05/01/17 at 02:30 Vasopressin/ Dextrose (Vasostrict/D5W) 60 ml @ 1.2 mls/hr Q12H IV Last administered on 05/01/17 02:48; Admin Dose 1.2 MLS/HR; Start 05/01/17 at 02:30 Hydrocortisone 100 mg 100 mg TID IV Last administered on 05/01/17 20:32; Admin Dose 100 MG; Start 05/01/17 at 09:00 Sodium Chloride 1,000 ml @ 0 mls/hr Q0M IV Last administered on 05/01/17 03: 00; Admin Dose 1,000 MLS/HR; Start 05/01/17 at 03:00 Sodium Chloride 1,000 ml @ 0 mls/hr Q0M IV Last administered on 05/01/17 04: 00; Admin Dose 1,000 MLS/HR; Start 05/01/17 at 03:30 Norepinephrine 16 mg/Dextrose 500 ml @ 1.87 mls/hr TITRATE IV Last administered on 05/01/17 10:13; Admin Dose 18.75 MLS/HR; Start 05/01/17 at 08: 00 Dextrose (D5W) 1,000 ml @ 75 mls/hr [id number] IV ; Start 05/02/17 at 07:30 NINA MACIEL DO May 02, 2017 08:09
[2017-05-02] MEDS: FUROSEMIDE 40 MG INJ IV SCH ×2 (08:25→17:22)
[2017-05-02] MEDS: HYDROCORTISONE 100 MG INJ IV SCH ×3 (08:26→21:17)
[2017-05-02] MEDS: DEXTROSE 5% 1,000 ML IV SCH (08:26)
[2017-05-02] MEDS: MEROPENEM 500MG/50 ML (PMX) 50 ML IVPB SCH ×2 (08:37→21:17)
--- NOTE | 2017-05-02 08:41 | RADRPT ---
AMENDMENT: 05/02/2017 8:42:32 AM Charlie Salter M.D PROCEDURE: XR Chest. CLINICAL INDICATION: pna chf TECHNIQUE: Single frontal view of the chest was obtained COMPARISON: Chest x-ray 05/01/2017 FINDINGS: Tracheostomy tube appears in adequate position. Right PICC line with tip projecting over the cavoatrial junction is stable. The cardiomediastinal silhouette is within normal limits. There are atherosclerotic calcifications of the aorta. There is interval slight decrease in diffuse patchy bilateral airspace disease. Small right pleural effusion, stable. No pneumothorax is seen. There are degenerative changes of the visualized spine. No IMPRESSION: 1. No interval slight improvement in diffuse patchy bilateral airspace disease. 2. Small right pleural effusion, unchanged. RPTAT: PP Physician [place] Date Time Electronically viewed and signed by Brad Salter Physician on 05/02/2017 08:42 JESSE/
[2017-05-02] MEDS: AMIODARONE 200 MG TAB GTB SCH ×3 (09:00→21:18)
[2017-05-02] MEDS: CITALOPRAM 20 MG TAB NGT SCH ×2 (09:00→14:49)
[2017-05-02] MEDS: LANSOPRAZOLE 30 MG CAP GTB SCH (09:00)
[2017-05-02] MEDS: VALACYCLOVIR 500 MG TAB GTB SCH ×3 (09:00→21:17)
[2017-05-02] MEDS: CHLORHEXIDINE GLUCONATE 15 ML UD CUP MT SCH ×2 (09:39→21:17)
[2017-05-02] MEDS: VITAMIN A & D 5 GM OINT PACKET TOP SCH ×3 (09:42→21:19)
[2017-05-02] MEDS: CASPOFUNGIN 50 MG in NS 250 ML IV SCH (09:48)
--- NOTE | 2017-05-02 11:34 | CONS ---
Date/Time of Note Date/Time of Note DATE: 05/02/17 TIME: 11:31 Consult Date/Type/Reason Admit Date/Time Apr 11, 2017 at 11:28 Initial Consult Date 04/12/17 Type of Consultation: Pulmonary Ordering Provider: NINA MACIEL DO Subjective Patient opens eyes makes eye contact off vasopressors Objective Vital Signs Date Time Temp Pulse Resp B/P Pulse Ox O2 Delivery O2 Flow Rate FiO2 05/02/17 10:30 99 24 153/90 98 Mechanical Ventilator 05/02/17 09:55 50 05/02/17 08:00 97.6 05/01/17 00:30 15.0 Intake and Output 05/01/17 05/01/17 05/02/17 15:00 23:00 07:00 Intake Total 1671.56 ml 1080 ml 700 ml Output Total 55 ml 75 ml 50 ml Balance 1616.56 ml 1005 ml 650 ml Exam GENERAL: Chronically ill-appearing tracheostomy mechanical ventilation VITAL SIGNS: per chart NECK: Supple. No JVD or lymphadenopathy. On mechanical ventilation via tracheostomy CARDIAC EXAM: S1, S2. No added sounds or murmurs. CHEST: Diminished air entry bilaterally poor effort ABDOMEN: Soft, nontender. No guarding or rebound. EXTREMITIES: No cyanosis, clubbing edema +2 NEUROLOGIC: Generalized weakness. Results/Medications Result Diagram: 05/02/17 0330 05/02/17 0330 Results 24 hrs Laboratory Tests Test 05/01/17 11:46 05/01/17 16:30 05/01/17 17:41 05/01/17 23:42 Bedside Glucose 139 128 106 Lactic Acid Level 1.1 Test 05/02/17 03:30 05/02/17 05:21 05/02/17 06:27 05/02/17 07:00 White Blood Count 32.6 #H Red Blood Count 2.09 L Hemoglobin 6.9 *L Hematocrit 20.5 L Mean Corpuscular Volume 98.1 Mean Corpuscular Hemoglobin 33.0 Mean Corpuscular Hemoglobin Concent 33.7 Red Cell Distribution Width 20.3 #H Platelet Count 129 #L Mean Platelet Volume 12.6 H Neutrophils % 93.9 H Lymphocytes % 2.2 L Monocytes % 2.6 Eosinophils % 0.0 Basophils % 0.1 Neutrophils # 30.6 H Lymphocytes # 0.7 L Monocytes # 0.8 Eosinophils # 0.0 Basophils # 0.0 Nucleated Red Blood Cells # 0.0 Sodium Level 153 H Potassium Level 4.7 Chloride Level 111 H Carbon Dioxide Level 29 Anion Gap 18 H Blood Urea Nitrogen 80 H Creatinine 1.67 H Glucose Level 86 # Calcium Level 8.7 Phosphorus Level 4.7 # Magnesium Level 2.3 Lab Scanned Report BLOOD TRANSFUSION Bedside Glucose 98 Blood Gas Specimen Source Blood arterial Arterial Blood Date Drawn 05/02/2017 7:20:03 AM Arterial Blood pH (Temp corrected) 7.459 H Arterial Blood pCO2 (Temp correct) 34.7 L Arterial Blood pO2 (Temp corrected) 57.7 L Arterial Blood HCO3 24.1 Arterial Blood Base Excess 0.3 Arterial Blood Oxygen Saturation 90.1 L Jonn Test ACCEPTAB Arterial Blood Gas Puncture Site Right Radial Arterial Blood Carboxyhemoglobin 0.3 Arterial Blood Methemoglobin 0.8 Blood Gas A-a O2 Differential 259.8 H Oxyhemoglobin Percent 89.1 L Total Hemoglobin 7.6 L Blood Gas Temperature 37.0 Blood Gas Respiration Rate 24.0 Blood Gas Actual Respiration Rate 24 Blood Gas Modality VENT - PC FiO2 50.0 Blood Gas Low PEEP Setting 5.0 Blood Gas Inspiratory Pressure 43.0 Blood Gas Notified Whom JLD Blood Gas Notified Time 05/02/2017 8:00:48 AM Medications Current Medications Aspirin (Aspirin) 325 mg DAILY NGT Last administered on 04/30/17 08:43; Admin Dose 325 MG; Start 04/12/17 at 09:00; Status Future Hold Metoprolol Tartrate (Lopressor) 5 mg Q4H PRN IV HR>110 Hold SBP<110 Last administered on 04/20/17 17:36; Admin Dose 5 MG; Start 04/11/17 at 13:30 Lansoprazole (Prevacid) 30 mg DAILY GTB Last administered on 05/01/17 08:40; Admin Dose 30 MG; Start 04/12/17 at 09:00 Miscellaneous Information 1 ea NOTE XX ; Start 04/11/17 at 16:30 Glucose (Glutose) 15 gm Q15M PRN PO DECREASED GLUCOSE; Start 04/11/17 at 16:30 Glucose (Glutose) 22.5 gm Q15M PRN PO DECREASED GLUCOSE; Start 04/11/17 at 16: 30 Dextrose (D50w Syringe) 25 ml Q15M PRN IV DECREASED GLUCOSE Last administered on 04/12/17 23:56; Admin Dose 25 ML; Start 04/11/17 at 16:30 Dextrose (D50w Syringe) 50 ml Q15M PRN IV DECREASED GLUCOSE; Start 04/11/17 at 16:30 Glucagon (Glucagen) 1 mg Q15M PRN IM DECREASED GLUCOSE; Start 04/11/17 at 16:30 Glucose (Glutose) 15 gm Q15M PRN BUCCAL DECREASED GLUCOSE; Start 04/11/17 at 16 :30 Metoclopramide HCl (Reglan) 10 mg Q6 IV Last administered on 05/02/17 11:20; Admin Dose 10 MG; Start 04/12/17 at 18:00 Insulin Aspart (Novolog Insulin Pen) NOVOLOG *MILD* ALGORI... Q6H SC Last administered on 04/30/17 05:59; Admin Dose 1 UNIT; Start 04/15/17 at 00:00 IV Flush (NS 10 ml) 10 ml PRN PRN IV FLUSH LINE; Start 04/15/17 at 13:00 Amiodarone HCl (Cordarone) 200 mg BID GTB Last administered on 05/01/17 20:32 ; Admin Dose 200 MG; Start 04/16/17 at 13:00 Heparin Sodium (Porcine) (Heparin (5000 Units/0.5 ml)) 5,000 unit BID SC Last administered on 04/30/17 21:03; Admin Dose 5,000 UNIT; Start 04/18/17 at 16:22; Status Future Hold Citalopram Hydrobromide (Celexa) 20 mg DAILY NGT Last administered on 08:40; Admin Dose 20 MG; Start 04/19/17 at 09:00 Hydralazine HCl 20 mg 20 mg Q6H PRN IV sbp ABOVE 160 Last administered on 22:40; Admin Dose 20 MG; Start 04/18/17 at 18:30 Caspofungin/ Sodium Chloride (Cancidas/NS) 250 ml @ 250 mls/hr Q24H IV Last administered on 05/02/17 09:48; Admin Dose 250 MLS/HR; Start 04/21/17 at 10:00 Chlorhexidine Gluconate (Peridex) 15 ml BID MT Last administered on 05/02/17 09:39; Admin Dose 15 ML; Start 04/22/17 at 21:00 Vitamin A/Vitamin D (Vitamin A & D Oint) 1 applic TID TOP Last administered on 05/02/17 09:42; Admin Dose 1 APPLIC; Start 04/22/17 at 21:00 Vitamin A/Vitamin D (Vitamin A & D Oint) 1 applic TID PRN TOP DRYNESS Last administered on 04/22/17 15:29; Admin Dose 1 APPLIC; Start 04/22/17 at 15:00 Acetaminophen/ Hydrocodone Bitart ([place] (5/325)) 1 tab Q6H GTB Last administered on 05/02/17 03:34; Admin Dose 1 TAB; Start 04/22/17 at 21:30 Spironolactone (Aldactone) 25 mg DAILY NGT Last administered on 04/30/17 08:43 ; Admin Dose 25 MG; Start 04/25/17 at 19:00; Status Future Hold Diltiazem HCl 5 mg 5 mg Q1H PRN IV HEART RATE GREATER THAN 120 Last administered on 04/29/17 06:17; Admin Dose 5 MG; Start 04/29/17 at 05:00 Meropenem/Sodium Chloride (Merrem 500mg/50 ml(Pmx)) 50 ml @ 200 mls/hr Q12 IVPB Last administered on 05/02/17 08:37; Admin Dose 200 MLS/HR; Start at 12:00 Metoprolol Tartrate (Lopressor) 25 mg BID GTB Last administered on 04/30/17 21 :01; Admin Dose 25 MG; Start 04/30/17 at 21:00; Status Future Hold Valacyclovir HCl (Valtrex) 500 mg BID GTB Last administered on 05/01/17 21:25 ; Admin Dose 500 MG; Start 04/30/17 at 21:00 Metronidazole 500 mg 500 mg Q8 GTB Last administered on 05/02/17 06:26; Admin Dose 500 MG; Start 04/30/17 at 22:00 Dopamine HCl/ Dextrose 250 ml @ 4.875 mls/ hr TITRATE IV Last administered on 05/01/17 07:07; Admin Dose 48.75 MLS/HR; Start 05/01/17 at 02:30 Vasopressin/ Dextrose (Vasostrict/D5W) 60 ml @ 1.2 mls/hr Q12H IV Last administered on 05/01/17 02:48; Admin Dose 1.2 MLS/HR; Start 05/01/17 at 02:30 Hydrocortisone 100 mg 100 mg TID IV Last administered on 05/02/17 08:26; Admin Dose 100 MG; Start 05/01/17 at 09:00 Sodium Chloride 1,000 ml @ 0 mls/hr Q0M IV Last administered on 05/01/17 03: 00; Admin Dose 1,000 MLS/HR; Start 05/01/17 at 03:00 Sodium Chloride 1,000 ml @ 0 mls/hr Q0M IV Last administered on 05/01/17 04: 00; Admin Dose 1,000 MLS/HR; Start 05/01/17 at 03:30 Norepinephrine 16 mg/Dextrose 500 ml @ 1.87 mls/hr TITRATE IV Last administered on 05/01/17 10:13; Admin Dose 18.75 MLS/HR; Start 05/01/17 at 08: 00 Dextrose (D5W) 1,000 ml @ 75 mls/hr [id number] IV Last administered on 05/02/17 08:26; Admin Dose 75 MLS/HR; Start 05/02/17 at 07:30 Assessment/Plan Chief Complaint/Hosp Course IMP: 1. Septic shock secondary to above likely aspiration pneumonia. Now on mechanical ventilation via tracheostomy. 2. Multifocal pneumonia aspiration vs.HCAP, persistent leukocytosis chest x-ray shows improved lung aeration. 3. Hypercapnic Respiratory Failure--likely due to critical illness now extubated again on nasal cannula 4. Status post lactic acidosis. 5. Demand Ischemia, atrial fibrillation with rapid ventricular rate 6. Cholecystitis stable, not for surgical intervention at present 7. Significant anemia likely secondary to upper oropharyngeal bleed. RECS: 1. Continue mechanical ventilation. Not tolerating volume control ventilation will continue with pressure control ventilation. 2. Oral care. 3. Aspiration precautions. 4. Continue vasopressors as needed. 5. Continue antibiotics 6. Continue physical therapy 7. Palliative care evaluation 8. Consider increasing free water. 9. Transfuse packed red blood cells per primary team Critical care time 40 minutes. Case d/w RN and patient's Problems: DARWIN CRAWFORD MD, [facility] May 02, 2017 11:34
--- NOTE | 2017-05-02 12:28 | CONS ---
Date/Time of Note Date/Time of Note DATE: 05/02/17 TIME: 12:25 Assessment/Plan Assessment/Plan Chief Complaint/Hosp Course No acute changes overnight, patient is awake, looks comfortable, she is off pressors since yesterday, getting blood transfusion Temperature 97.6 pulse 99 respirations 24 blood pressure 153/90 saturation 98 on 60 FiO2 WBC 32.6 H&H 6.9 and 20.5 platelets 129 neutrophils 93.9 no bands BN 80 creatinine 1.67 Blood and urine cultures since April 30 remain negative Indwelling's: Trach, PEG, PICC line, Latif Antimicrobials: Flagyl Valtrex meropenem Cancidas Physical examination: Chronically ill-appearing elderly woman who is lying comfortably in bed. Head atraumatic, normocephalic sclera nonicteric bugle mucosa dry patient has wounds on her upper and lower lips neck is supple tracheostomy present chest rise symmetrical breath sounds with bilateral scattered crackles. Heart: S1-S2, tachycardic Abdomen soft bowel tones hypoactive. Extremities with bilateral edema. Skin pale with severe anasarca. 1. Sepsis with shock, off pressors, started on Solu-Cortef 2. Acute on chronic respiratory failure, possible recurrent aspiration 3. Leukocytosis, combination of sepsis and steroids induced 4. Fungemia with repeat blood cultures being negative 5. Status post rapid atrial fibrillation 6. Acute on chronic anemia possible GI bleeding Plan: Hemodynamically stable, continue present care, antibiotics, vent management as per pulmonary, pending GI evaluation Discussed with staff discussed with at bedside Problems: Consultation Date/Type/Reason Admit Date/Time Apr 11, 2017 at 11:28 Initial Consult Date 04/12/17 Type of Consultation: id Referring Provider: NINA MACIEL DO Exam/Review of Systems Vital Signs Vitals Vital Signs Date Time Temp Pulse Resp B/P Pulse Ox O2 Delivery O2 Flow Rate FiO2 05/02/17 11:55 60 05/02/17 10:30 99 24 153/90 98 Mechanical Ventilator 05/02/17 08:00 97.6 05/01/17 00:30 15.0 Intake and Output 05/01/17 05/01/17 05/02/17 15:00 23:00 07:00 Intake Total 1671.56 ml 1080 ml 700 ml Output Total 55 ml 75 ml 50 ml Balance 1616.56 ml 1005 ml 650 ml Results Result Diagram: 05/02/17 0330 05/02/17 0330 Results 24 hrs Laboratory Tests Test 05/01/17 16:30 05/01/17 17:41 05/01/17 23:42 05/02/17 03:30 Lactic Acid Level 1.1 Bedside Glucose 128 106 White Blood Count 32.6 #H Red Blood Count 2.09 L Hemoglobin 6.9 *L Hematocrit 20.5 L Mean Corpuscular Volume 98.1 Mean Corpuscular Hemoglobin 33.0 Mean Corpuscular Hemoglobin Concent 33.7 Red Cell Distribution Width 20.3 #H Platelet Count 129 #L Mean Platelet Volume 12.6 H Neutrophils % 93.9 H Lymphocytes % 2.2 L Monocytes % 2.6 Eosinophils % 0.0 Basophils % 0.1 Neutrophils # 30.6 H Lymphocytes # 0.7 L Monocytes # 0.8 Eosinophils # 0.0 Basophils # 0.0 Nucleated Red Blood Cells # 0.0 Sodium Level 153 H Potassium Level 4.7 Chloride Level 111 H Carbon Dioxide Level 29 Anion Gap 18 H Blood Urea Nitrogen 80 H Creatinine 1.67 H Glucose Level 86 # Calcium Level 8.7 Phosphorus Level 4.7 # Magnesium Level 2.3 Test 05/02/17 05:21 05/02/17 06:27 05/02/17 07:00 Lab Scanned Report BLOOD TRANSFUSION Bedside Glucose 98 Blood Gas Specimen Source Blood arterial Arterial Blood Date Drawn 05/02/2017 7:20:03 AM Arterial Blood pH (Temp corrected) 7.459 H Arterial Blood pCO2 (Temp correct) 34.7 L Arterial Blood pO2 (Temp corrected) 57.7 L Arterial Blood HCO3 24.1 Arterial Blood Base Excess 0.3 Arterial Blood Oxygen Saturation 90.1 L Jonn Test ACCEPTAB Arterial Blood Gas Puncture Site Right Radial Arterial Blood Carboxyhemoglobin 0.3 Arterial Blood Methemoglobin 0.8 Blood Gas A-a O2 Differential 259.8 H Oxyhemoglobin Percent 89.1 L Total Hemoglobin 7.6 L Blood Gas Temperature 37.0 Blood Gas Respiration Rate 24.0 Blood Gas Actual Respiration Rate 24 Blood Gas Modality VENT - PC FiO2 50.0 Blood Gas Low PEEP Setting 5.0 Blood Gas Inspiratory Pressure 43.0 Blood Gas Notified Whom JLD Blood Gas Notified Time 05/02/2017 8:00:48 AM Medications Medications Current Medications Aspirin (Aspirin) 325 mg DAILY NGT Last administered on 04/30/17 08:43; Admin Dose 325 MG; Start 04/12/17 at 09:00; Status Future Hold Metoprolol Tartrate (Lopressor) 5 mg Q4H PRN IV HR>110 Hold SBP<110 Last administered on 04/20/17 17:36; Admin Dose 5 MG; Start 04/11/17 at 13:30 Lansoprazole (Prevacid) 30 mg DAILY GTB Last administered on 05/01/17 08:40; Admin Dose 30 MG; Start 04/12/17 at 09:00 Miscellaneous Information 1 ea NOTE XX ; Start 04/11/17 at 16:30 Glucose (Glutose) 15 gm Q15M PRN PO DECREASED GLUCOSE; Start 04/11/17 at 16:30 Glucose (Glutose) 22.5 gm Q15M PRN PO DECREASED GLUCOSE; Start 04/11/17 at 16: 30 Dextrose (D50w Syringe) 25 ml Q15M PRN IV DECREASED GLUCOSE Last administered on 04/12/17 23:56; Admin Dose 25 ML; Start 04/11/17 at 16:30 Dextrose (D50w Syringe) 50 ml Q15M PRN IV DECREASED GLUCOSE; Start 04/11/17 at 16:30 Glucagon (Glucagen) 1 mg Q15M PRN IM DECREASED GLUCOSE; Start 04/11/17 at 16:30 Glucose (Glutose) 15 gm Q15M PRN BUCCAL DECREASED GLUCOSE; Start 04/11/17 at 16 :30 Metoclopramide HCl (Reglan) 10 mg Q6 IV Last administered on 05/02/17 11:20; Admin Dose 10 MG; Start 04/12/17 at 18:00 Insulin Aspart (Novolog Insulin Pen) NOVOLOG *MILD* ALGORI... Q6H SC Last administered on 04/30/17 05:59; Admin Dose 1 UNIT; Start 04/15/17 at 00:00 IV Flush (NS 10 ml) 10 ml PRN PRN IV FLUSH LINE; Start 04/15/17 at 13:00 Amiodarone HCl (Cordarone) 200 mg BID GTB Last administered on 05/01/17 20:32 ; Admin Dose 200 MG; Start 04/16/17 at 13:00 Heparin Sodium (Porcine) (Heparin (5000 Units/0.5 ml)) 5,000 unit BID SC Last administered on 04/30/17 21:03; Admin Dose 5,000 UNIT; Start 04/18/17 at 16:22; Status Future Hold Citalopram Hydrobromide (Celexa) 20 mg DAILY NGT Last administered on 08:40; Admin Dose 20 MG; Start 04/19/17 at 09:00 Hydralazine HCl 20 mg 20 mg Q6H PRN IV sbp ABOVE 160 Last administered on 22:40; Admin Dose 20 MG; Start 04/18/17 at 18:30 Caspofungin/ Sodium Chloride (Cancidas/NS) 250 ml @ 250 mls/hr Q24H IV Last administered on 05/02/17 09:48; Admin Dose 250 MLS/HR; Start 04/21/17 at 10:00 Chlorhexidine Gluconate (Peridex) 15 ml BID MT Last administered on 05/02/17 09:39; Admin Dose 15 ML; Start 04/22/17 at 21:00 Vitamin A/Vitamin D (Vitamin A & D Oint) 1 applic TID TOP Last administered on 05/02/17 09:42; Admin Dose 1 APPLIC; Start 04/22/17 at 21:00 Vitamin A/Vitamin D (Vitamin A & D Oint) 1 applic TID PRN TOP DRYNESS Last administered on 04/22/17 15:29; Admin Dose 1 APPLIC; Start 04/22/17 at 15:00 Acetaminophen/ Hydrocodone Bitart ([facility] [place] (5/325)) 1 tab Q6H GTB Last administered on 05/02/17 03:34; Admin Dose 1 TAB; Start 04/22/17 at 21:30 Spironolactone (Aldactone) 25 mg DAILY NGT Last administered on 04/30/17 08:43 ; Admin Dose 25 MG; Start 04/25/17 at 19:00; Status Future Hold Diltiazem HCl 5 mg 5 mg Q1H PRN IV HEART RATE GREATER THAN 120 Last administered on 04/29/17 06:17; Admin Dose 5 MG; Start 04/29/17 at 05:00 Meropenem/Sodium Chloride (Merrem 500mg/50 ml(Pmx)) 50 ml @ 200 mls/hr Q12 IVPB Last administered on 05/02/17 08:37; Admin Dose 200 MLS/HR; Start at 12:00 Metoprolol Tartrate (Lopressor) 25 mg BID GTB Last administered on 04/30/17 21 :01; Admin Dose 25 MG; Start 04/30/17 at 21:00; Status Future Hold Valacyclovir HCl (Valtrex) 500 mg BID GTB Last administered on 05/01/17 21:25 ; Admin Dose 500 MG; Start 04/30/17 at 21:00 Metronidazole 500 mg 500 mg Q8 GTB Last administered on 05/02/17 06:26; Admin Dose 500 MG; Start 04/30/17 at 22:00 Dopamine HCl/ Dextrose 250 ml @ 4.875 mls/ hr TITRATE IV Last administered on 05/01/17 07:07; Admin Dose 48.75 MLS/HR; Start 05/01/17 at 02:30 Vasopressin/ Dextrose (Vasostrict/D5W) 60 ml @ 1.2 mls/hr Q12H IV Last administered on 05/01/17 02:48; Admin Dose 1.2 MLS/HR; Start 05/01/17 at 02:30 Hydrocortisone 100 mg 100 mg TID IV Last administered on 05/02/17 08:26; Admin Dose 100 MG; Start 05/01/17 at 09:00 Sodium Chloride 1,000 ml @ 0 mls/hr Q0M IV Last administered on 05/01/17 03: 00; Admin Dose 1,000 MLS/HR; Start 05/01/17 at 03:00 Sodium Chloride 1,000 ml @ 0 mls/hr Q0M IV Last administered on 05/01/17 04: 00; Admin Dose 1,000 MLS/HR; Start 05/01/17 at 03:30 Norepinephrine 16 mg/Dextrose 500 ml @ 1.87 mls/hr TITRATE IV Last administered on 05/01/17 10:13; Admin Dose 18.75 MLS/HR; Start 05/01/17 at 08: 00 Dextrose (D5W) 1,000 ml @ 75 mls/hr [id number] IV Last administered on 05/02/17 08:26; Admin Dose 75 MLS/HR; Start 05/02/17 at 07:30 LORETO MCKEON NP May 02, 2017 12:27
[2017-05-02] MEDS: hydrALAzine 20 MG INJ IV PRN (12:43)
--- NOTE | 2017-05-02 14:10 | PN ---
Date/Time of Note Date/Time of Note DATE: 05/02/17 TIME: 13:51 Assessment/Plan Lines/Catheters IV Catheter Type (from [facility]): PICC Line Latif in Place (from [facility]): Yes Assessment/Plan Chief Complaint/Hosp Course 1. Cholelithiasis ? cholecystitis: Ct abd: sludge and small stones in the gallbladder. No gallbladder wall thickening is noted with some pericholecystic fluid is present. Patient off pressors; GT/OGT no output; HIDA positive; IR drain placement cancelled by radiologist since US without evidence of infection. Therefore, Dr. Guadalupe believes the HIDA is false positive. Tolerating tube feeds; no abdominal pain/discomfort; LFT's increased, bili nl (s/p code with blood loss) -No surgical intervention required at this time 2. Pneumonia: Recurrent; no fevers; reintubated; less secretion sputum cx: PSEUDOMONAS AERUGINOSA, K PNEUMO ESBL, NASRIN GLABRATA; appears comfortable -pulmonary toilet -abx per ID 3. Vent dependent respiratory failure: 2/2 aspiration PNA+ CHF;reintubated and extubated, coded 04/21 and 05/01; currently reintubated -as above 4. Septic shock: improved -on abx -supportive 5. Uncontrolled Afib: s/p amiodarone drip, on oral amiodarone; episodes of Afib Now SR -medical optimization -lovenox 6. Elevated troponin:NSTEMI; septic shock/demand ischemia -trend 7. Leukocytosis with lactic acidosis: 2/2 pneumonia vs. steroids vs.fungemia vs other (urine, repeat blood cultures negative);wbc improved: s/p code -abx, antifungals -judicious fluid management -supportive measures 8. KEYONNA: likely 2/2 septic shock; s/p code; cr up -judicious fluid management -avoid nephrotoxic agents 9. CHF: BNP elevated -judicious fluid management -medical optimization 10. Adrenal Insufficiency -solucortef 11. Hypomagnesemia: -electrolyte optimization -monitor for cardiac abnormalities 12. Hypothyroidism; tsh elevated -on synthroid 13. Macrocytic anemia: chronic vs. dilutional vs. acute bleed vs. b12/folate deficiency; neeru blood noted orally during code; prbc transfusion; h/h unchanged; coffee ground gastric aspirate -monitor -Transfuse as needed -?heme/onc consult -GI consult 14. Transaminitis: likely 2/2 septic shock vs. cholecystitis; up s/p code -trend, monitor 15. Diarrhea: 2/2 abx vs. enteritis: resolved; tolerating tf -? probiotics 16. Thrombocytosis: 2/2 inflammatory vs. drug induced vs. other -monitor -bleeding precautions -supportive 17. Encephalopathy: 2/2 toxic metabolic vs. anoxic injury; CT: No acute intracranial hemorrhage or mass effect. Mild chronic microvascular disease and intracranial atherosclerosis; EEG shows no seizure activity -supportive 18. Bilateral upper extremity edema: likely 2/2 decreased movement vs. thrombosis; initial doppler negative, repeat doppler left arm (+) Thrombus -elevate extremities -supportive -anticoagulation 19. Hypoalbuminemia: 2/2 malnutrition +/- inflammation; decreased; tolerating tf ; -nutrition optimization -as above 20 Hypernatremia: -judicious fluid management 21. Hypocalcemia:normalized -optimize nutrition 22. Fungemia -antifungals 23. Hyperkalemia -optimize lytes 24. Oral lesions Patient seen and examined in collaboration with Dr. Justus Antonio Problems: Subjective 24 Hr Interval Summary Awake, tracks, answers questions. Blood transfusion ongoing. Min bloating. gtube aspirate coffee ground. No c/o metzger, dizziness, sz, cp, sob, palpitations, n /v/d. + BM (dark soft) Exam/Review of Systems Vital Signs Vitals Vital Signs Date Time Temp Pulse Resp B/P Pulse Ox O2 Delivery O2 Flow Rate FiO2 05/02/17 13:11 89 24 100 60 05/02/17 10:30 153/90 Mechanical Ventilator 05/02/17 08:00 97.6 05/01/17 00:30 15.0 Intake and Output 05/01/17 05/01/17 05/02/17 15:00 23:00 07:00 Intake Total 1671.56 ml 1080 ml 700 ml Output Total 55 ml 75 ml 50 ml Balance 1616.56 ml 1005 ml 650 ml Exam Free Text/Dictation Constitutional: lethargic, appears comfortable Head: atraumatic, normocephalic Eyes: PERRL, nl lids, nl sclera ENMT: No mucosa pink and moist (pink and moist with perioral lesions) Neck: non-tender, supple, tracheostomy Respiratory: diminished, comfortable, on nasal canula Cardiovascular: nl pulses, regular rate and rhythm, NSR, Gastrointestinal: min distended, GT tubes site no erythema, no drainage, non tenderness, bowel sounds x 4 quads Genitourinary - Female: nl external genitalia Musculoskeletal: nl extremities to inspection Extremities: normal pulses, bilateral upper/lower extremity edema Neurological: responsive Skin: nl turgor, No rash or lesions Lymph: nl lymph nodes Results Result Diagram: 05/02/17 0330 05/02/17 0330 ADDISON FREGOSO NP May 02, 2017 14:01
[2017-05-02] MEDS: PANTOPRAZOLE 40 MG INJ IV SCH (14:50)
--- NOTE | 2017-05-02 15:28 | PN ---
Date/Time of Note Date/Time of Note DATE: 05/02/17 TIME: 15:26 Assessment/Plan VTE Prophylaxis VTE Prophylaxis Intervention: other Lines/Catheters IV Catheter Type (from Nrs): PICC Line Central line still needed: Yes Urinary Cath still in place: Yes Reason Cath still needed: other (indicate) Assessment/Plan Chief Complaint/Hosp Course 1. acute on chronic hypoxemic respiratory failure: CURRENTLY s/p Emergent cricothyrotomy by ER 2. NSTEMI: due to demand ischemia. 3. CHF/ fluid overload: due to diastolic heart failure 4. moderate 5. Arrhythmia and P afib, frequent PVC: 6. ANEMIA 7. pneumonia, severe leukocytosis now. 8. sepsis and shock: BACK ON 3 pressors now 9. Anasarca 10. s/p cardiopulm arrest due to resp failure 11. renal failure 12. coagulopathy Rec: off of ASA due to active bleeding and severe anemia and coagulopathy. resp care as per PULM Team/ ENT consult. correct lytes prn. cont ICU care. off of betablocker due to shock. . thyroid supplement . will closely monitor in ICU. diuretics as tolerated. transfuse prn Problems: Subjective 24 Hr Interval Summary Free Text/Dictation CARDIOLOGY FOLLOW UP/ critical care note: D/W staff , and . rhythm was reviewed. pt has remained in NSR overnight d/w BP is much better and off of pressors now. Objective: General: s/p craicotomy. on vent HEENT: NC/AT. . oropharynx with bleeding and multiple lesions. . NECK: NO JVD. no stridor. s/p trach on vent CV: tachycardic. systolic ejection murmur; no gallop or rubs. PULM: + diffuse rhonchi. GI: SOFT, NT, ND, no rebound or guarding s/p PEG Extremity: 3+ B/L LE edema. no clubbing. neuro: opens her eye Psych: calm rectal: deferred Derm: multiple echymosis Exam/Review of Systems Vital Signs Vitals Vital Signs Date Time Temp Pulse Resp B/P Pulse Ox O2 Delivery O2 Flow Rate FiO2 05/02/17 15:21 85 24 100 60 05/02/17 13:30 122/66 Mechanical Ventilator 05/02/17 12:00 97.6 05/01/17 00:30 15.0 Intake and Output 05/01/17 05/01/17 05/02/17 15:00 23:00 07:00 Intake Total 1671.56 ml 1080 ml 700 ml Output Total 55 ml 75 ml 50 ml Balance 1616.56 ml 1005 ml 650 ml Results Result Diagram: 05/02/17 0330 05/02/17 0330 Results 24 hrs Laboratory Tests Test 05/01/17 16:30 05/01/17 17:41 05/01/17 23:42 05/02/17 03:30 Lactic Acid Level 1.1 Bedside Glucose 128 106 White Blood Count 32.6 #H Red Blood Count 2.09 L Hemoglobin 6.9 *L Hematocrit 20.5 L Mean Corpuscular Volume 98.1 Mean Corpuscular Hemoglobin 33.0 Mean Corpuscular Hemoglobin Concent 33.7 Red Cell Distribution Width 20.3 #H Platelet Count 129 #L Mean Platelet Volume 12.6 H Neutrophils % 93.9 H Lymphocytes % 2.2 L Monocytes % 2.6 Eosinophils % 0.0 Basophils % 0.1 Neutrophils # 30.6 H Lymphocytes # 0.7 L Monocytes # 0.8 Eosinophils # 0.0 Basophils # 0.0 Nucleated Red Blood Cells # 0.0 Sodium Level 153 H Potassium Level 4.7 Chloride Level 111 H Carbon Dioxide Level 29 Anion Gap 18 H Blood Urea Nitrogen 80 H Creatinine 1.67 H Glucose Level 86 # Calcium Level 8.7 Phosphorus Level 4.7 # Magnesium Level 2.3 Test 05/02/17 05:21 05/02/17 06:27 05/02/17 07:00 05/02/17 12:18 Lab Scanned Report BLOOD TRANSFUSION Bedside Glucose 98 95 Blood Gas Specimen Source Blood arterial Arterial Blood Date Drawn 05/02/2017 7:20:03 AM Arterial Blood pH (Temp corrected) 7.459 H Arterial Blood pCO2 (Temp correct) 34.7 L Arterial Blood pO2 (Temp corrected) 57.7 L Arterial Blood HCO3 24.1 Arterial Blood Base Excess 0.3 Arterial Blood Oxygen Saturation 90.1 L Jonn Test ACCEPTAB Arterial Blood Gas Puncture Site Right Radial Arterial Blood Carboxyhemoglobin 0.3 Arterial Blood Methemoglobin 0.8 Blood Gas A-a O2 Differential 259.8 H Oxyhemoglobin Percent 89.1 L Total Hemoglobin 7.6 L Blood Gas Temperature 37.0 Blood Gas Respiration Rate 24.0 Blood Gas Actual Respiration Rate 24 Blood Gas Modality VENT - PC FiO2 50.0 Blood Gas Low PEEP Setting 5.0 Blood Gas Inspiratory Pressure 43.0 Blood Gas Notified Whom JLD Blood Gas Notified Time 05/02/2017 8:00:48 AM Medications Medications Current Medications Aspirin (Aspirin) 325 mg DAILY NGT Last administered on 04/30/17 08:43; Admin Dose 325 MG; Start 04/12/17 at 09:00; Status Future Hold Metoprolol Tartrate (Lopressor) 5 mg Q4H PRN IV HR>110 Hold SBP<110 Last administered on 04/20/17 17:36; Admin Dose 5 MG; Start 04/11/17 at 13:30 Miscellaneous Information 1 ea NOTE XX ; Start 04/11/17 at 16:30 Glucose (Glutose) 15 gm Q15M PRN PO DECREASED GLUCOSE; Start 04/11/17 at 16:30 Glucose (Glutose) 22.5 gm Q15M PRN PO DECREASED GLUCOSE; Start 04/11/17 at 16: 30 Dextrose (D50w Syringe) 25 ml Q15M PRN IV DECREASED GLUCOSE Last administered on 04/12/17 23:56; Admin Dose 25 ML; Start 04/11/17 at 16:30 Dextrose (D50w Syringe) 50 ml Q15M PRN IV DECREASED GLUCOSE; Start 04/11/17 at 16:30 Glucagon (Glucagen) 1 mg Q15M PRN IM DECREASED GLUCOSE; Start 04/11/17 at 16:30 Glucose (Glutose) 15 gm Q15M PRN BUCCAL DECREASED GLUCOSE; Start 04/11/17 at 16 :30 Metoclopramide HCl (Reglan) 10 mg Q6 IV Last administered on 05/02/17 11:20; Admin Dose 10 MG; Start 04/12/17 at 18:00 Insulin Aspart (Novolog Insulin Pen) NOVOLOG *MILD* ALGORI... Q6H SC Last administered on 04/30/17 05:59; Admin Dose 1 UNIT; Start 04/15/17 at 00:00 IV Flush (NS 10 ml) 10 ml PRN PRN IV FLUSH LINE; Start 04/15/17 at 13:00 Amiodarone HCl (Cordarone) 200 mg BID GTB Last administered on 05/02/17 14:50 ; Admin Dose 200 MG; Start 04/16/17 at 13:00 Heparin Sodium (Porcine) (Heparin (5000 Units/0.5 ml)) 5,000 unit BID SC Last administered on 04/30/17 21:03; Admin Dose 5,000 UNIT; Start 04/18/17 at 16:22; Status Future Hold Citalopram Hydrobromide (Celexa) 20 mg DAILY NGT Last administered on 14:49; Admin Dose 20 MG; Start 04/19/17 at 09:00 Hydralazine HCl 20 mg 20 mg Q6H PRN IV sbp ABOVE 160 Last administered on 12:43; Admin Dose 20 MG; Start 04/18/17 at 18:30 Caspofungin/ Sodium Chloride (Cancidas/NS) 250 ml @ 250 mls/hr Q24H IV Last administered on 05/02/17 09:48; Admin Dose 250 MLS/HR; Start 04/21/17 at 10:00 Chlorhexidine Gluconate (Peridex) 15 ml BID MT Last administered on 05/02/17 09:39; Admin Dose 15 ML; Start 04/22/17 at 21:00 Vitamin A/Vitamin D (Vitamin A & D Oint) 1 applic TID TOP Last administered on 05/02/17 12:42; Admin Dose 1 APPLIC; Start 04/22/17 at 21:00 Vitamin A/Vitamin D (Vitamin A & D Oint) 1 applic TID PRN TOP DRYNESS Last administered on 04/22/17 15:29; Admin Dose 1 APPLIC; Start 04/22/17 at 15:00 Acetaminophen/ Hydrocodone Bitart ([place] (5/325)) 1 tab Q6H GTB Last administered on 05/02/17 14:49; Admin Dose 1 TAB; Start 04/22/17 at 21:30 Spironolactone (Aldactone) 25 mg DAILY NGT Last administered on 04/30/17 08:43 ; Admin Dose 25 MG; Start 04/25/17 at 19:00; Status Future Hold Diltiazem HCl 5 mg 5 mg Q1H PRN IV HEART RATE GREATER THAN 120 Last administered on 04/29/17 06:17; Admin Dose 5 MG; Start 04/29/17 at 05:00 Meropenem/Sodium Chloride (Merrem 500mg/50 ml(Pmx)) 50 ml @ 200 mls/hr Q12 IVPB Last administered on 05/02/17 08:37; Admin Dose 200 MLS/HR; Start at 12:00 Metoprolol Tartrate (Lopressor) 25 mg BID GTB Last administered on 04/30/17 21 :01; Admin Dose 25 MG; Start 04/30/17 at 21:00; Status Future Hold Valacyclovir HCl (Valtrex) 500 mg BID GTB Last administered on 05/02/17 14:49 ; Admin Dose 500 MG; Start 04/30/17 at 21:00 Metronidazole 500 mg 500 mg Q8 GTB Last administered on 05/02/17 14:49; Admin Dose 500 MG; Start 04/30/17 at 22:00 Dopamine HCl/ Dextrose 250 ml @ 4.875 mls/ hr TITRATE IV Last administered on 05/01/17 07:07; Admin Dose 48.75 MLS/HR; Start 05/01/17 at 02:30 Vasopressin/ Dextrose (Vasostrict/D5W) 60 ml @ 1.2 mls/hr Q12H IV Last administered on 05/01/17 02:48; Admin Dose 1.2 MLS/HR; Start 05/01/17 at 02:30 Hydrocortisone 100 mg 100 mg TID IV Last administered on 05/02/17 12:42; Admin Dose 100 MG; Start 05/01/17 at 09:00 Sodium Chloride 1,000 ml @ 0 mls/hr Q0M IV Last administered on 05/01/17 03: 00; Admin Dose 1,000 MLS/HR; Start 05/01/17 at 03:00 Sodium Chloride 1,000 ml @ 0 mls/hr Q0M IV Last administered on 05/01/17 04: 00; Admin Dose 1,000 MLS/HR; Start 05/01/17 at 03:30 Norepinephrine 16 mg/Dextrose 500 ml @ 1.87 mls/hr TITRATE IV Last administered on 05/01/17 10:13; Admin Dose 18.75 MLS/HR; Start 05/01/17 at 08: 00 Dextrose (D5W) 1,000 ml @ 75 mls/hr [id number] IV Last administered on 05/02/17 08:26; Admin Dose 75 MLS/HR; Start 05/02/17 at 07:30 Pantoprazole (Protonix Iv) 40 mg BID@,18 IV Last administered on 05/02/17 14 :50; Admin Dose 40 MG; Start 05/02/17 at 15:00 FRANCISCO BLACKWOOD MD May 02, 2017 15:28
[2017-05-02] MEDS ORDERED: FENTAnyl 50 MCG/ML VIAL ONE (18:33)
--- NOTE | 2017-05-02 18:35 | OPR ---
Date/Time of Note Date/Time of Note DATE: 05/02/17 TIME: 18:34 Operative Report Preoperative Diagnosis Upper GI bleed Postoperative Diagnosis 2 AVM in the fundal area bleeding stopped by injecting epinephrine 1 is to 10, 000 total 8 cc Surgeon: ALYSSA THOMPSON MD Anesthesia: MAC Specimens None Complications: None ALYSSA THOMPSON MD May 02, 2017 18:35
[2017-05-02] MEDS ORDERED: DILTIAZEM-D5W 125MG/125ML DRIP 125 ML IV SCH (19:00)
[2017-05-03] VITALS (41 sets, daily range): BP systolic 107–147; BP diastolic 64–99; PULSE 83–119; RESP 4–24
[2017-05-03] MEDS: METOCLOPRAMIDE 10 MG INJ IV SCH ×4 (00:26→17:56)
[2017-05-03] MEDS: LEVALBUTEROL (HFA) 15 GM INHALER INH SCH ×4 (01:07→19:11)
[2017-05-03] MEDS: VASOPRESSIN 60 UNIT in DEXTROSE 5% 57 ML IV SCH ×2 (02:30→13:58)
[2017-05-03] MEDS: DEXTROSE 5% 1,000 ML IV SCH ×4 (02:35→23:30)
[2017-05-03 05:10] LABS: ABNORMAL IP MESSAGE 1; BASOPHIL # 0.1 10^3/ul (0.0-0.1); BASOPHILS % 0.2 % (0.0-2.0); LYMPHOCYTES # 0.6 10^3/ul (0.8-2.9); LYMPHOCYTES % 1.7 % (15.0-51.0); MEAN CORPUSCULAR HEMOGLOBIN 29.7 pg (29.0-33.0); MEAN CORPUSCULAR HGB CONC 33.3 g/dl (32.0-37.0); MEAN PLATELET VOLUME 12.6 fl (7.4-10.4); MONOCYTE # 0.8 10^3/ul (0.3-0.9); MONOCYTES % 2.4 % (0.0-11.0); NEUTROPHIL # 31.7 10^3/ul (1.6-7.5); PLATELET COUNT 115 10^3/UL (140-415); RED BLOOD COUNT 3.37 10^6/ul (4.20-5.40); RED CELL DISTRIBUTION WIDTH 22.6 % (11.5-14.5); WHITE BLOOD COUNT 33.7 10^3/ul (4.8-10.8)
[2017-05-03] MEDS: PANTOPRAZOLE 40 MG INJ IV SCH ×2 (05:31→17:56)
[2017-05-03] MEDS: LEVOTHYROXINE 75 MCG TAB GTB SCH (05:33)
[2017-05-03] MEDS: HYDROCODONE/APAP (5/325) TAB GTB SCH ×4 (05:33→21:25)
[2017-05-03] MEDS: FUROSEMIDE 40 MG INJ IV SCH ×3 (05:33→21:26)
[2017-05-03 05:37] LABS: NEUTROPHILS % 94.1 % (39.0-77.0); POSITIVE DIFF @See below
[2017-05-03 05:38] LABS: CALCIUM 8.7 mg/dl (8.4-10.2); CREATININE 1.85 mg/dl (0.44-1.00); MAGNESIUM 2.2 mg/dl (1.7-2.5); PHOSPHORUS 5.2 mg/dl (2.5-4.9); POTASSIUM 4.6 mmol/L (3.5-5.1)
[2017-05-03] MEDS: metroNIDAZOLE 500 MG TAB GTB SCH ×3 (05:39→21:25)
[2017-05-03] MEDS: INSULIN ASPART [NOVOLOG] 3 ML PEN SC SCH ×5 (05:39→23:28)
--- NOTE | 2017-05-03 08:19 | PN ---
Date/Time of Note Date/Time of Note DATE: 05/03/17 TIME: 08:15 Assessment/Plan VTE Prophylaxis VTE Prophylaxis Intervention: other Lines/Catheters IV Catheter Type (from Nrs): PICC Line Central line still needed: Yes Urinary Cath still in place: Yes Reason Cath still needed: other (indicate) Assessment/Plan Chief Complaint/Hosp Course 1. Status post code arrest -Etiology secondary to sepsis, hypoxemic failure -Patient was coded 30 minutes with spontaneous return of circulation We will continue to monitor 2. Hypoxemic respiratory failure secondary to aspiration pneumonia, shock -Patient intubated -Patient status post emergent tracheostomy -ABG chest x-ray reviewed -We will follow-up with pulmonary, ENT consult placed with Dr. Carpio 2. Anuric/nonoliguric [place]. With previously normal baseline creatinine. Etiology is likely secondary to septic KENRICK, ATN -Minimal urinary output despite diuretic challenge We will increase Lasix 80 mg IV twice daily Informed patient may require ultrafiltration and dialysis if no significant urinary output -Follow-up renal panel - 3. Hyperkalemia secondary to acute kidney injury acidemia Improved Continue to monitor 3. Sepsis status post shock Etiology secondary to aspiration pneumonia, fungemia Patient is on broad-spectrum antibiotics, antifungals, - Patient's blood cultures have been reviewed. - Continue current treatment plan Follow-up with infectious disease 4. Volume overload. Etiology likely secondary to sepsis capillary leak, diastolic heart failure. -Patient is currently anuric acute kidney injury -We will give diuretic challenge If no response may require dialysis 6. History of adrenal insufficiency. -Patient currently on stress steroids, -Appreciate endocrinology evaluation 7. Acute encephalopathy etiologies toxic metabolic, possible anoxic injury. Mental status is improving, patient following commands CT scan showed no acute finding Appreciate Dr. Ellis evaluation -Continue to monitor closely 8. Hypernatremia Continue t D5 water Monitor 9. Hypothyroidism continue Synthroid 10. Anemia. -With apparent oral facial bleed, epistaxis -Status post blood transfusion ENT or GI evaluation placed 11. Mineral bone disorder will monitor calcium phosphorus levels 12. h/o tongue cancer with resection 13. History of diastolic heart failure/coronary disease -Continue medical management 14. Leukocytosis. -Etiology is likely secondary sepsis, steroids. -Monitor - Follow-up with infectious disease. 15. Hypomagnesemia. Continue to monitor and replete as needed 16. Left upper extremity DVT. -Hold aspirin heparin setting of bleed 17. Dysphagia status post PEG Hold tube feedings at this time 18. Arrhythmia Status post amiodarone drip Follow-up with cardio 19. ?cholecystitis -Patient's HIDA scan was positive - cholecystostomy drain was not placed due to insufficient fluid. -No plan for drain placement at this time. I discussed case with general surgery Appreciate surgery's evaluation. 20. 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 Ellis's evaluation Continue supportive care I spent greater than 40 minutes of critical care time with this pt Problems: Subjective 24 Hr Interval Summary Free Text/Dictation Patient seen and examined Remains critically ill Patient had EGD performed yesterday with cauterization at the fundus of AV M Spoke with patient's at bedside informing him that patient may need to start dialysis if urinary output does not improve with aggressive diuresis Exam/Review of Systems Vital Signs Vitals Vital Signs Date Time Temp Pulse Resp B/P Pulse Ox O2 Delivery O2 Flow Rate FiO2 05/03/17 07:40 86 24 100 60 05/03/17 05:00 128/71 05/03/17 04:00 96.2 05/03/17 03:00 Mechanical Ventilator 05/01/17 00:30 15.0 Intake and Output 05/02/17 05/02/17 05/03/17 15:00 23:00 07:00 Intake Total 1100 ml 1420 ml 105 ml Output Total 120 ml 110 ml 80 ml Balance 980 ml 1310 ml 25 ml Exam HEENT: Head is normocephalic, NECK: Supple. HEART: Irregular LUNGS: Show diminished breath sounds at base. ABDOMEN: Soft, nontender to palpation without rebound or guarding. EXTREMITIES: Negative for clubbing, cyanosis. Positive edema/anasarca DERMATOLOGIC: No rashes. MUSCULOSKELETAL: No joint effusions, NEUROLOGIC: No change in exam. Results Result Diagram: 05/03/17 0440 05/03/17 0440 Results 24 hrs Laboratory Tests Test 05/02/17 12:18 05/02/17 17:22 05/02/17 23:45 05/03/17 04:37 Bedside Glucose 95 114 144 150 Test 05/03/17 04:40 05/03/17 05:18 White Blood Count 33.7 H Red Blood Count 3.37 #L Hemoglobin 10.0 #L Hematocrit 30.0 #L Mean Corpuscular Volume 89.0 Mean Corpuscular Hemoglobin 29.7 Mean Corpuscular Hemoglobin Concent 33.3 Red Cell Distribution Width 22.6 H Platelet Count 115 L Mean Platelet Volume 12.6 H Neutrophils % 94.1 H Lymphocytes % 1.7 L Monocytes % 2.4 Eosinophils % 0.0 Basophils % 0.2 Nucleated Red Blood Cells % 0.0 Neutrophils # 31.7 H Lymphocytes # 0.6 L Monocytes # 0.8 Eosinophils # 0.0 Basophils # 0.1 Nucleated Red Blood Cells # 0.0 Sodium Level 150 H Potassium Level 4.6 Chloride Level 110 Carbon Dioxide Level 26 Anion Gap 19 H Blood Urea Nitrogen 85 H Creatinine 1.85 H Glucose Level 142 # Calcium Level 8.7 Phosphorus Level 5.2 H Magnesium Level 2.2 Lab Scanned Report BLOOD TRANSFUSION Medications Medications Current Medications Aspirin (Aspirin) 325 mg DAILY NGT Last administered on 04/30/17 08:43; Admin Dose 325 MG; Start 04/12/17 at 09:00; Status Future Hold Metoprolol Tartrate (Lopressor) 5 mg Q4H PRN IV HR>110 Hold SBP<110 Last administered on 04/20/17 17:36; Admin Dose 5 MG; Start 04/11/17 at 13:30 Miscellaneous Information 1 ea NOTE XX ; Start 04/11/17 at 16:30 Glucose (Glutose) 15 gm Q15M PRN PO DECREASED GLUCOSE; Start 04/11/17 at 16:30 Glucose (Glutose) 22.5 gm Q15M PRN PO DECREASED GLUCOSE; Start 04/11/17 at 16: 30 Dextrose (D50w Syringe) 25 ml Q15M PRN IV DECREASED GLUCOSE Last administered on 04/12/17 23:56; Admin Dose 25 ML; Start 04/11/17 at 16:30 Dextrose (D50w Syringe) 50 ml Q15M PRN IV DECREASED GLUCOSE; Start 04/11/17 at 16:30 Glucagon (Glucagen) 1 mg Q15M PRN IM DECREASED GLUCOSE; Start 04/11/17 at 16:30 Glucose (Glutose) 15 gm Q15M PRN BUCCAL DECREASED GLUCOSE; Start 04/11/17 at 16 :30 Metoclopramide HCl (Reglan) 10 mg Q6 IV Last administered on 05/03/17 05:39; Admin Dose 10 MG; Start 04/12/17 at 18:00 Insulin Aspart (Novolog Insulin Pen) NOVOLOG *MILD* ALGORI... Q6H SC Last administered on 04/30/17 05:59; Admin Dose 1 UNIT; Start 04/15/17 at 00:00 IV Flush (NS 10 ml) 10 ml PRN PRN IV FLUSH LINE; Start 04/15/17 at 13:00 Amiodarone HCl (Cordarone) 200 mg BID GTB Last administered on 05/02/17 21:18 ; Admin Dose 200 MG; Start 04/16/17 at 13:00 Heparin Sodium (Porcine) (Heparin (5000 Units/0.5 ml)) 5,000 unit BID SC Last administered on 04/30/17 21:03; Admin Dose 5,000 UNIT; Start 04/18/17 at 16:22; Status Future Hold Citalopram Hydrobromide (Celexa) 20 mg DAILY NGT Last administered on 14:49; Admin Dose 20 MG; Start 04/19/17 at 09:00 Hydralazine HCl 20 mg 20 mg Q6H PRN IV sbp ABOVE 160 Last administered on 12:43; Admin Dose 20 MG; Start 04/18/17 at 18:30 Caspofungin/ Sodium Chloride (Cancidas/NS) 250 ml @ 250 mls/hr Q24H IV Last administered on 05/02/17 09:48; Admin Dose 250 MLS/HR; Start 04/21/17 at 10:00 Chlorhexidine Gluconate (Peridex) 15 ml BID MT Last administered on 05/02/17 21:17; Admin Dose 15 ML; Start 04/22/17 at 21:00 Vitamin A/Vitamin D (Vitamin A & D Oint) 1 applic TID TOP Last administered on 05/02/17 21:19; Admin Dose 1 APPLIC; Start 04/22/17 at 21:00 Vitamin A/Vitamin D (Vitamin A & D Oint) 1 applic TID PRN TOP DRYNESS Last administered on 04/22/17 15:29; Admin Dose 1 APPLIC; Start 04/22/17 at 15:00 Acetaminophen/ Hydrocodone Bitart ([place] (5/325)) 1 tab Q6H GTB Last administered on 05/03/17 05:33; Admin Dose 1 TAB; Start 04/22/17 at 21:30 Spironolactone (Aldactone) 25 mg DAILY NGT Last administered on 04/30/17 08:43 ; Admin Dose 25 MG; Start 04/25/17 at 19:00; Status Future Hold Diltiazem HCl 5 mg 5 mg Q1H PRN IV HEART RATE GREATER THAN 120 Last administered on 04/29/17 06:17; Admin Dose 5 MG; Start 04/29/17 at 05:00 Meropenem/Sodium Chloride (Merrem 500mg/50 ml(Pmx)) 50 ml @ 200 mls/hr Q12 IVPB Last administered on 05/02/17 21:17; Admin Dose 200 MLS/HR; Start at 12:00 Metoprolol Tartrate (Lopressor) 25 mg BID GTB Last administered on 04/30/17 21 :01; Admin Dose 25 MG; Start 04/30/17 at 21:00; Status Future Hold Valacyclovir HCl (Valtrex) 500 mg BID GTB Last administered on 05/02/17 21:17 ; Admin Dose 500 MG; Start 04/30/17 at 21:00 Metronidazole 500 mg 500 mg Q8 GTB Last administered on 05/03/17 05:39; Admin Dose 500 MG; Start 04/30/17 at 22:00 Dopamine HCl/ Dextrose 250 ml @ 4.875 mls/ hr TITRATE IV Last administered on 05/01/17 07:07; Admin Dose 48.75 MLS/HR; Start 05/01/17 at 02:30 Vasopressin/ Dextrose (Vasostrict/D5W) 60 ml @ 1.2 mls/hr Q12H IV Last administered on 05/01/17 02:48; Admin Dose 1.2 MLS/HR; Start 05/01/17 at 02:30 Hydrocortisone 100 mg 100 mg TID IV Last administered on 05/02/17 21:17; Admin Dose 100 MG; Start 05/01/17 at 09:00 Sodium Chloride 1,000 ml @ 0 mls/hr Q0M IV Last administered on 05/01/17 03: 00; Admin Dose 1,000 MLS/HR; Start 05/01/17 at 03:00 Sodium Chloride 1,000 ml @ 0 mls/hr Q0M IV Last administered on 05/01/17 04: 00; Admin Dose 1,000 MLS/HR; Start 05/01/17 at 03:30 Norepinephrine 16 mg/Dextrose 500 ml @ 1.87 mls/hr TITRATE IV Last administered on 05/01/17 10:13; Admin Dose 18.75 MLS/HR; Start 05/01/17 at 08: 00 Dextrose (D5W) 1,000 ml @ 75 mls/hr [id number] IV Last administered on 05/03/17 05:55; Admin Dose 75 MLS/HR; Start 05/02/17 at 07:30 Pantoprazole 40 mg 40 mg BID@06,18 IV Last administered on 05/03/17 05:31; Admin Dose 40 MG; Start 05/02/17 at 15:00 Diltiazem HCl (Cardizem-D5W 125 Mg/125 ml Drip) 125 ml @ 5 mls/hr TITRATE IV Last administered on 05/02/17 19:11; Admin Dose 5 MLS/HR; Start 05/02/17 at 19: 00 NINA MACIEL DO May 03, 2017 08:19
[2017-05-03] MEDS ORDERED: ACETAZOLAMIDE 500 MG INJ IV ONE (08:30)
[2017-05-03] MEDS: VALACYCLOVIR 500 MG TAB GTB SCH ×2 (09:22→20:22)
[2017-05-03] MEDS: CHLORHEXIDINE GLUCONATE 15 ML UD CUP MT SCH ×2 (09:22→20:21)
[2017-05-03] MEDS: HYDROCORTISONE 100 MG INJ IV SCH ×3 (09:22→20:21)
[2017-05-03] MEDS: VITAMIN A & D 5 GM OINT PACKET TOP SCH ×3 (09:22→20:23)
[2017-05-03] MEDS: CITALOPRAM 20 MG TAB NGT SCH (09:23)
[2017-05-03] MEDS: MEROPENEM 500MG/50 ML (PMX) 50 ML IVPB SCH ×2 (09:23→20:52)
[2017-05-03] MEDS: AMIODARONE 200 MG TAB GTB SCH ×2 (09:23→20:22)
--- NOTE | 2017-05-03 09:48 | CONS ---
Date/Time of Note Date/Time of Note DATE: 05/03/17 TIME: 09:46 Assessment/Plan Assessment/Plan Additional Assessment/Plan Ventilator setting; AC of 24, pressure control mode of ventilation. 60% FiO2, PEEP of 5, Assessment recommendations; 1. Patient admitted for recurrent sepsis likely from aspiration status post redo tracheostomy. 2. Remote history of glossal cancer. With a prior history of tracheostomy with subsequent decannulation. 3. Anemia. 4. Bilateral pneumonia. 5. Severe generalized deconditioning. 6. Paroxysmal atrial fibrillation. 7. COPD. Next Continue current treatment. Consider comfort care initiation evaluation and possibly hospice. Prognosis is poor. Consultation Date/Type/Reason Admit Date/Time Apr 11, 2017 at 11:28 Initial Consult Date 05/01/17 Type of Consultation: Pulmonary/critical care Referring Provider: NINA MACIEL DO 24 HR Interval Summary Free Text/Dictation Patient condition remains tenuous at best. Still requiring full ventilator support at high FiO2. Patient is somewhat responsive. General exam; elderly woman, on ventilator via tracheostomy, awake, currently in no distress. Exam/Review of Systems Vital Signs Vitals Vital Signs Date Time Temp Pulse Resp B/P Pulse Ox O2 Delivery O2 Flow Rate FiO2 05/03/17 07:40 86 24 100 60 05/03/17 05:00 128/71 05/03/17 04:00 96.2 05/03/17 03:00 Mechanical Ventilator 05/01/17 00:30 15.0 Intake and Output 05/02/17 05/02/17 05/03/17 15:00 23:00 07:00 Intake Total 1100 ml 1420 ml 105 ml Output Total 120 ml 110 ml 80 ml Balance 980 ml 1310 ml 25 ml Exam HEENT exam; supple neck, no JVD. No lymphadenopathy. Midline trachea. Patient has fair dentition. The colostomy in place. There are chronic changes involving the right jaw. Pupils are small bilaterally. Next Chest exam; diminished breath sounds bilaterally. No added sound. S1-S2 audible, no murmurs. Abdomen exam; soft, nondistended. No organomegaly. G-tube in place. Bowel sounds audible. Extremity exam; 2+ anasarca. 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 Results Result Diagram: 05/03/1743905/03/17439 Results 24 hrs Laboratory Tests Test 05/02/17 12:18 05/02/17 17:22 05/02/17 23:45 05/03/17 04:37 Bedside Glucose 95 114 144 150 Test 05/03/17 04:40 05/03/17 05:18 White Blood Count 33.7 H Red Blood Count 3.37 #L Hemoglobin 10.0 #L Hematocrit 30.0 #L Mean Corpuscular Volume 89.0 Mean Corpuscular Hemoglobin 29.7 Mean Corpuscular Hemoglobin Concent 33.3 Red Cell Distribution Width 22.6 H Platelet Count 115 L Mean Platelet Volume 12.6 H Neutrophils % 94.1 H Lymphocytes % 1.7 L Monocytes % 2.4 Eosinophils % 0.0 Basophils % 0.2 Nucleated Red Blood Cells % 0.0 Neutrophils # 31.7 H Lymphocytes # 0.6 L Monocytes # 0.8 Eosinophils # 0.0 Basophils # 0.1 Nucleated Red Blood Cells # 0.0 Sodium Level 150 H Potassium Level 4.6 Chloride Level 110 Carbon Dioxide Level 26 Anion Gap 19 H Blood Urea Nitrogen 85 H Creatinine 1.85 H Glucose Level 142 # Calcium Level 8.7 Phosphorus Level 5.2 H Magnesium Level 2.2 Lab Scanned Report BLOOD TRANSFUSION Medications Medications Current Medications Aspirin (Aspirin) 325 mg DAILY NGT Last administered on 04/30/17 08:43; Admin Dose 325 MG; Start 04/12/17 at 09:00; Status Future Hold Metoprolol Tartrate (Lopressor) 5 mg Q4H PRN IV HR>110 Hold SBP<110 Last administered on 04/20/17 17:36; Admin Dose 5 MG; Start 04/11/17 at 13:30 Miscellaneous Information 1 ea NOTE XX ; Start 04/11/17 at 16:30 Glucose (Glutose) 15 gm Q15M PRN PO DECREASED GLUCOSE; Start 04/11/17 at 16:30 Glucose (Glutose) 22.5 gm Q15M PRN PO DECREASED GLUCOSE; Start 04/11/17 at 16: 30 Dextrose (D50w Syringe) 25 ml Q15M PRN IV DECREASED GLUCOSE Last administered on 04/12/17 23:56; Admin Dose 25 ML; Start 04/11/17 at 16:30 Dextrose (D50w Syringe) 50 ml Q15M PRN IV DECREASED GLUCOSE; Start 04/11/17 at 16:30 Glucagon (Glucagen) 1 mg Q15M PRN IM DECREASED GLUCOSE; Start 04/11/17 at 16:30 Glucose (Glutose) 15 gm Q15M PRN BUCCAL DECREASED GLUCOSE; Start 04/11/17 at 16 :30 Metoclopramide HCl (Reglan) 10 mg Q6 IV Last administered on 05/03/17 05:39; Admin Dose 10 MG; Start 04/12/17 at 18:00 Insulin Aspart (Novolog Insulin Pen) NOVOLOG *MILD* ALGORI... Q6H SC Last administered on 04/30/17 05:59; Admin Dose 1 UNIT; Start 04/15/17 at 00:00 IV Flush (NS 10 ml) 10 ml PRN PRN IV FLUSH LINE; Start 04/15/17 at 13:00 Amiodarone HCl (Cordarone) 200 mg BID GTB Last administered on 05/03/17 09:23 ; Admin Dose 200 MG; Start 04/16/17 at 13:00 Heparin Sodium (Porcine) (Heparin (5000 Units/0.5 ml)) 5,000 unit BID SC Last administered on 04/30/17 21:03; Admin Dose 5,000 UNIT; Start 04/18/17 at 16:22; Status Future Hold Citalopram Hydrobromide (Celexa) 20 mg DAILY NGT Last administered on 09:23; Admin Dose 20 MG; Start 04/19/17 at 09:00 Hydralazine HCl 20 mg 20 mg Q6H PRN IV sbp ABOVE 160 Last administered on 12:43; Admin Dose 20 MG; Start 04/18/17 at 18:30 Caspofungin/ Sodium Chloride (Cancidas/NS) 250 ml @ 250 mls/hr Q24H IV Last administered on 05/02/17 09:48; Admin Dose 250 MLS/HR; Start 04/21/17 at 10:00 Chlorhexidine Gluconate (Peridex) 15 ml BID MT Last administered on 05/03/17 09:22; Admin Dose 15 ML; Start 04/22/17 at 21:00 Vitamin A/Vitamin D (Vitamin A & D Oint) 1 applic TID TOP Last administered on 05/03/17 09:22; Admin Dose 1 APPLIC; Start 04/22/17 at 21:00 Vitamin A/Vitamin D (Vitamin A & D Oint) 1 applic TID PRN TOP DRYNESS Last administered on 04/22/17 15:29; Admin Dose 1 APPLIC; Start 04/22/17 at 15:00 Acetaminophen/ Hydrocodone Bitart ([place] (5/325)) 1 tab Q6H GTB Last administered on 05/03/17 09:31; Admin Dose 1 TAB; Start 04/22/17 at 21:30 Spironolactone (Aldactone) 25 mg DAILY NGT Last administered on 04/30/17 08:43 ; Admin Dose 25 MG; Start 04/25/17 at 19:00; Status Future Hold Diltiazem HCl 5 mg 5 mg Q1H PRN IV HEART RATE GREATER THAN 120 Last administered on 04/29/17 06:17; Admin Dose 5 MG; Start 04/29/17 at 05:00 Meropenem/Sodium Chloride (Merrem 500mg/50 ml(Pmx)) 50 ml @ 200 mls/hr Q12 IVPB Last administered on 05/03/17 09:23; Admin Dose 200 MLS/HR; Start at 12:00 Metoprolol Tartrate (Lopressor) 25 mg BID GTB Last administered on 04/30/17 21 :01; Admin Dose 25 MG; Start 04/30/17 at 21:00; Status Future Hold Valacyclovir HCl (Valtrex) 500 mg BID GTB Last administered on 05/03/17 09:22 ; Admin Dose 500 MG; Start 04/30/17 at 21:00 Metronidazole 500 mg 500 mg Q8 GTB Last administered on 05/03/17 05:39; Admin Dose 500 MG; Start 04/30/17 at 22:00 Dopamine HCl/ Dextrose 250 ml @ 4.875 mls/ hr TITRATE IV Last administered on 05/01/17 07:07; Admin Dose 48.75 MLS/HR; Start 05/01/17 at 02:30 Vasopressin/ Dextrose (Vasostrict/D5W) 60 ml @ 1.2 mls/hr Q12H IV Last administered on 05/01/17 02:48; Admin Dose 1.2 MLS/HR; Start 05/01/17 at 02:30 Hydrocortisone 100 mg 100 mg TID IV Last administered on 05/03/17 09:22; Admin Dose 100 MG; Start 05/01/17 at 09:00 Sodium Chloride 1,000 ml @ 0 mls/hr Q0M IV Last administered on 05/01/17 03: 00; Admin Dose 1,000 MLS/HR; Start 05/01/17 at 03:00 Sodium Chloride 1,000 ml @ 0 mls/hr Q0M IV Last administered on 05/01/17 04: 00; Admin Dose 1,000 MLS/HR; Start 05/01/17 at 03:30 Norepinephrine 16 mg/Dextrose 500 ml @ 1.87 mls/hr TITRATE IV Last administered on 05/01/17 10:13; Admin Dose 18.75 MLS/HR; Start 05/01/17 at 08: 00 Dextrose (D5W) 1,000 ml @ 75 mls/hr [id number] IV Last administered on 05/03/17 05:55; Admin Dose 75 MLS/HR; Start 05/02/17 at 07:30 Pantoprazole 40 mg 40 mg BID@06,18 IV Last administered on 05/03/17 05:31; Admin Dose 40 MG; Start 05/02/17 at 15:00 Diltiazem HCl (Cardizem-D5W 125 Mg/125 ml Drip) 125 ml @ 5 mls/hr TITRATE IV Last administered on 05/02/17 19:11; Admin Dose 5 MLS/HR; Start 05/02/17 at 19: 00 Furosemide (Lasix) 80 mg Q12 IV Last administered on 05/03/17 09:22; Admin Dose 80 MG; Start 05/03/17 at 09:00 EMILIANO HICKS May 03, 2017 09:48
[2017-05-03] MEDS: CASPOFUNGIN 50 MG in NS 250 ML IV SCH (10:31)
--- NOTE | 2017-05-03 12:01 | CONS ---
Date/Time of Note Date/Time of Note DATE: 05/03/17 TIME: 11:59 Assessment/Plan Assessment/Plan Chief Complaint/Hosp Course No acute events per report, lying comfortably in bed, at bedside Temperature 97.1 pulse 94 respirations 24 blood pressure 141/74 saturation 160 FiO2 WBC 33.7 H&H 10 and 30 platelets 115 neutrophils 94.1 BUN 85 creatinine 1.85 Microbiology: Blood and urine cultures since April 30 remain negative Indwelling's: Trach, PEG, PICC line, Latif Antimicrobials: Flagyl Valtrex meropenem Cancidas Physical examination: Chronically ill-appearing elderly woman who is lying comfortably in bed. Head atraumatic, normocephalic sclera nonicteric bugle mucosa dry patient has wounds on her upper and lower lips neck is supple tracheostomy present chest rise symmetrical breath sounds with bilateral scattered crackles. Heart: S1-S2, tachycardic Abdomen soft bowel tones hypoactive. Extremities with bilateral edema. Skin pale with severe anasarca. Assessment: 1. Sepsis with shock, off pressors, started on Solu-Cortef 2. Acute on chronic respiratory failure, possible recurrent aspiration 3. Leukocytosis, combination of sepsis and steroids induced 4. Fungemia with repeat blood cultures being negative 5. Status post rapid atrial fibrillation 6. Acute on chronic anemia secondary to AVM ==> stopped, status post EGD on May 02 with injection of epinephrine Plan: Hemodynamically stable, continue present care, antibiotics, vent management as per pulmonary Discussed with staff discussed with at bedside Problems: Consultation Date/Type/Reason Admit Date/Time Apr 11, 2017 at 11:28 Initial Consult Date 04/12/17 Type of Consultation: ID Referring Provider: NINA MACIEL DO Exam/Review of Systems Vital Signs Vitals Vital Signs Date Time Temp Pulse Resp B/P Pulse Ox O2 Delivery O2 Flow Rate FiO2 05/03/17 11:00 103 18 131/73 100 Mechanical Ventilator 05/03/17 09:50 60 05/03/17 08:00 97.1 05/01/17 00:30 15.0 Intake and Output 05/02/17 05/02/17 05/03/17 15:00 23:00 07:00 Intake Total 1100 ml 1420 ml 105 ml Output Total 120 ml 110 ml 100 ml Balance 980 ml 1310 ml 5 ml Results Result Diagram: 05/03/170 05/03/17 0440 Results 24 hrs Laboratory Tests Test 05/02/17 12:18 05/02/17 17:22 05/02/17 23:45 05/03/17 04:37 Bedside Glucose 95 114 144 150 Test 05/03/17 04:40 05/03/17 05:18 White Blood Count 33.7 H Red Blood Count 3.37 #L Hemoglobin 10.0 #L Hematocrit 30.0 #L Mean Corpuscular Volume 89.0 Mean Corpuscular Hemoglobin 29.7 Mean Corpuscular Hemoglobin Concent 33.3 Red Cell Distribution Width 22.6 H Platelet Count 115 L Mean Platelet Volume 12.6 H Neutrophils % 94.1 H Lymphocytes % 1.7 L Monocytes % 2.4 Eosinophils % 0.0 Basophils % 0.2 Nucleated Red Blood Cells % 0.0 Neutrophils # 31.7 H Lymphocytes # 0.6 L Monocytes # 0.8 Eosinophils # 0.0 Basophils # 0.1 Nucleated Red Blood Cells # 0.0 Sodium Level 150 H Potassium Level 4.6 Chloride Level 110 Carbon Dioxide Level 26 Anion Gap 19 H Blood Urea Nitrogen 85 H Creatinine 1.85 H Glucose Level 142 # Calcium Level 8.7 Phosphorus Level 5.2 H Magnesium Level 2.2 Lab Scanned Report BLOOD TRANSFUSION Medications Medications Current Medications Aspirin (Aspirin) 325 mg DAILY NGT Last administered on 04/30/17 08:43; Admin Dose 325 MG; Start 04/12/17 at 09:00; Status Future Hold Metoprolol Tartrate (Lopressor) 5 mg Q4H PRN IV HR>110 Hold SBP<110 Last administered on 04/20/17 17:36; Admin Dose 5 MG; Start 04/11/17 at 13:30 Miscellaneous Information 1 ea NOTE XX ; Start 04/11/17 at 16:30 Glucose (Glutose) 15 gm Q15M PRN PO DECREASED GLUCOSE; Start 04/11/17 at 16:30 Glucose (Glutose) 22.5 gm Q15M PRN PO DECREASED GLUCOSE; Start 04/11/17 at 16: 30 Dextrose (D50w Syringe) 25 ml Q15M PRN IV DECREASED GLUCOSE Last administered on 04/12/17 23:56; Admin Dose 25 ML; Start 04/11/17 at 16:30 Dextrose (D50w Syringe) 50 ml Q15M PRN IV DECREASED GLUCOSE; Start 04/11/17 at 16:30 Glucagon (Glucagen) 1 mg Q15M PRN IM DECREASED GLUCOSE; Start 04/11/17 at 16:30 Glucose (Glutose) 15 gm Q15M PRN BUCCAL DECREASED GLUCOSE; Start 04/11/17 at 16 :30 Metoclopramide HCl (Reglan) 10 mg Q6 IV Last administered on 05/03/17 05:39; Admin Dose 10 MG; Start 04/12/17 at 18:00 Insulin Aspart (Novolog Insulin Pen) NOVOLOG *MILD* ALGORI... Q6H SC Last administered on 04/30/17 05:59; Admin Dose 1 UNIT; Start 04/15/17 at 00:00 IV Flush (NS 10 ml) 10 ml PRN PRN IV FLUSH LINE; Start 04/15/17 at 13:00 Amiodarone HCl (Cordarone) 200 mg BID GTB Last administered on 05/03/17 09:23 ; Admin Dose 200 MG; Start 04/16/17 at 13:00 Heparin Sodium (Porcine) (Heparin (5000 Units/0.5 ml)) 5,000 unit BID SC Last administered on 04/30/17 21:03; Admin Dose 5,000 UNIT; Start 04/18/17 at 16:22; Status Future Hold Citalopram Hydrobromide (Celexa) 20 mg DAILY NGT Last administered on 09:23; Admin Dose 20 MG; Start 04/19/17 at 09:00 Hydralazine HCl 20 mg 20 mg Q6H PRN IV sbp ABOVE 160 Last administered on 12:43; Admin Dose 20 MG; Start 04/18/17 at 18:30 Caspofungin/ Sodium Chloride (Cancidas/NS) 250 ml @ 250 mls/hr Q24H IV Last administered on 05/03/17 10:31; Admin Dose 250 MLS/HR; Start 04/21/17 at 10:00 Chlorhexidine Gluconate (Peridex) 15 ml BID MT Last administered on 05/03/17 09:22; Admin Dose 15 ML; Start 04/22/17 at 21:00 Vitamin A/Vitamin D (Vitamin A & D Oint) 1 applic TID TOP Last administered on 05/03/17 09:22; Admin Dose 1 APPLIC; Start 04/22/17 at 21:00 Vitamin A/Vitamin D (Vitamin A & D Oint) 1 applic TID PRN TOP DRYNESS Last administered on 04/22/17 15:29; Admin Dose 1 APPLIC; Start 04/22/17 at 15:00 Acetaminophen/ Hydrocodone Bitart ([place] (5/325)) 1 tab Q6H GTB Last administered on 05/03/17 09:31; Admin Dose 1 TAB; Start 04/22/17 at 21:30 Spironolactone (Aldactone) 25 mg DAILY NGT Last administered on 04/30/17 08:43 ; Admin Dose 25 MG; Start 04/25/17 at 19:00; Status Future Hold Diltiazem HCl 5 mg 5 mg Q1H PRN IV HEART RATE GREATER THAN 120 Last administered on 04/29/17 06:17; Admin Dose 5 MG; Start 04/29/17 at 05:00 Meropenem/Sodium Chloride (Merrem 500mg/50 ml(Pmx)) 50 ml @ 200 mls/hr Q12 IVPB Last administered on 05/03/17 09:23; Admin Dose 200 MLS/HR; Start at 12:00 Metoprolol Tartrate (Lopressor) 25 mg BID GTB Last administered on 04/30/17 21 :01; Admin Dose 25 MG; Start 04/30/17 at 21:00; Status Future Hold Valacyclovir HCl (Valtrex) 500 mg BID GTB Last administered on 05/03/17 09:22 ; Admin Dose 500 MG; Start 04/30/17 at 21:00 Metronidazole 500 mg 500 mg Q8 GTB Last administered on 05/03/17 05:39; Admin Dose 500 MG; Start 04/30/17 at 22:00 Dopamine HCl/ Dextrose 250 ml @ 4.875 mls/ hr TITRATE IV Last administered on 05/01/17 07:07; Admin Dose 48.75 MLS/HR; Start 05/01/17 at 02:30 Vasopressin/ Dextrose (Vasostrict/D5W) 60 ml @ 1.2 mls/hr Q12H IV Last administered on 05/01/17 02:48; Admin Dose 1.2 MLS/HR; Start 05/01/17 at 02:30 Hydrocortisone 100 mg 100 mg TID IV Last administered on 05/03/17 09:22; Admin Dose 100 MG; Start 05/01/17 at 09:00 Sodium Chloride 1,000 ml @ 0 mls/hr Q0M IV Last administered on 05/01/17 03: 00; Admin Dose 1,000 MLS/HR; Start 05/01/17 at 03:00 Sodium Chloride 1,000 ml @ 0 mls/hr Q0M IV Last administered on 05/01/17 04: 00; Admin Dose 1,000 MLS/HR; Start 05/01/17 at 03:30 Norepinephrine 16 mg/Dextrose 500 ml @ 1.87 mls/hr TITRATE IV Last administered on 05/01/17 10:13; Admin Dose 18.75 MLS/HR; Start 05/01/17 at 08: 00 Dextrose (D5W) 1,000 ml @ 75 mls/hr [id number] IV Last administered on 05/03/17 05:55; Admin Dose 75 MLS/HR; Start 05/02/17 at 07:30 Pantoprazole 40 mg 40 mg BID@06,18 IV Last administered on 05/03/17 05:31; Admin Dose 40 MG; Start 05/02/17 at 15:00 Diltiazem HCl (Cardizem-D5W 125 Mg/125 ml Drip) 125 ml @ 5 mls/hr TITRATE IV Last administered on 05/02/17 19:11; Admin Dose 5 MLS/HR; Start 05/02/17 at 19: 00 Furosemide (Lasix) 80 mg Q12 IV Last administered on 05/03/17 09:22; Admin Dose 80 MG; Start 05/03/17 at 09:00 LORETO MCKEON NP May 03, 2017 12:01
--- NOTE | 2017-05-03 13:11 | CONS ---
Date/Time of Note Date/Time of Note DATE: 05/03/17 TIME: 13:09 Assessment/Plan Assessment/Plan Additional Assessment/Plan #1 GI bleeding from AVM from the stomach hemostasis achieved no further bleeding and hematocrit is stable 2. Status post GJ 3. Vent dependent respiratory failure 4. History of tongue cancer many years ago 5. Atrial fibrillation 6. Status post septic shock 7. Leukocytosis secondary to steroid plus combination of GI bleeding and infection Plan Continue PPI Resume feeding No blood thinner. Consultation Date/Type/Reason Admit Date/Time Apr 11, 2017 at 11:28 Initial Consult Date 05/01/17 Type of Consultation: ID Referring Provider: NINA MACIEL DO 24 HR Interval Summary Free Text/Dictation As per the staff no further bleeding Constitutional: improved, no complaints Exam/Review of Systems Vital Signs Vitals Vital Signs Date Time Temp Pulse Resp B/P Pulse Ox O2 Delivery O2 Flow Rate FiO2 05/03/17 11:00 103 18 131/73 100 Mechanical Ventilator 05/03/17 09:50 60 05/03/17 08:00 97.1 05/01/17 00:30 15.0 Intake and Output 05/02/17 05/02/17 05/03/17 15:00 23:00 07:00 Intake Total 1100 ml 1420 ml 105 ml Output Total 120 ml 110 ml 100 ml Balance 980 ml 1310 ml 5 ml Exam Constitutional: alert, oriented, well developed Psych: nl mood/affect, no complaints Head: atraumatic, normocephalic Eyes: EOMI, PERRL, nl conjunctiva, nl lids, nl sclera ENMT: nl external ears & nose, nl lips & teeth, nl nasal mucosa & septum Neck: non-tender, supple Respiratory: clear to auscultation, normal air movement Cardiovascular: nl pulses, regular rate and rhythm Gastrointestinal: nl liver, spleen, non-tender, soft Musculoskeletal: nl extremities to inspection, nl gait and stance Extremities: normal pulses Neurological: RET[employer] SPECIALIST II-XII intact, nl mental status, nl speech, nl strength Skin: nl turgor, No rash or lesions Lymph: nl lymph nodes Results Result Diagram: 05/03/17 0440 05/03/17 0440 Results 24 hrs Laboratory Tests Test 05/02/17 17:22 05/02/17 23:45 05/03/17 04:37 05/03/17 04:40 Bedside Glucose 114 144 150 White Blood Count 33.7 H Red Blood Count 3.37 #L Hemoglobin 10.0 #L Hematocrit 30.0 #L Mean Corpuscular Volume 89.0 Mean Corpuscular Hemoglobin 29.7 Mean Corpuscular Hemoglobin Concent 33.3 Red Cell Distribution Width 22.6 H Platelet Count 115 L Mean Platelet Volume 12.6 H Neutrophils % 94.1 H Lymphocytes % 1.7 L Monocytes % 2.4 Eosinophils % 0.0 Basophils % 0.2 Nucleated Red Blood Cells % 0.0 Neutrophils # 31.7 H Lymphocytes # 0.6 L Monocytes # 0.8 Eosinophils # 0.0 Basophils # 0.1 Nucleated Red Blood Cells # 0.0 Sodium Level 150 H Potassium Level 4.6 Chloride Level 110 Carbon Dioxide Level 26 Anion Gap 19 H Blood Urea Nitrogen 85 H Creatinine 1.85 H Glucose Level 142 # Calcium Level 8.7 Phosphorus Level 5.2 H Magnesium Level 2.2 Test 05/03/17 05:18 05/03/17 12:23 Lab Scanned Report BLOOD TRANSFUSION Bedside Glucose 135 Medications Medications Current Medications Aspirin (Aspirin) 325 mg DAILY NGT Last administered on 04/30/17 08:43; Admin Dose 325 MG; Start 04/12/17 at 09:00; Status Future Hold Metoprolol Tartrate (Lopressor) 5 mg Q4H PRN IV HR>110 Hold SBP<110 Last administered on 04/20/17 17:36; Admin Dose 5 MG; Start 04/11/17 at 13:30 Miscellaneous Information 1 ea NOTE XX ; Start 04/11/17 at 16:30 Glucose (Glutose) 15 gm Q15M PRN PO DECREASED GLUCOSE; Start 04/11/17 at 16:30 Glucose (Glutose) 22.5 gm Q15M PRN PO DECREASED GLUCOSE; Start 04/11/17 at 16: 30 Dextrose (D50w Syringe) 25 ml Q15M PRN IV DECREASED GLUCOSE Last administered on 04/12/17 23:56; Admin Dose 25 ML; Start 04/11/17 at 16:30 Dextrose (D50w Syringe) 50 ml Q15M PRN IV DECREASED GLUCOSE; Start 04/11/17 at 16:30 Glucagon (Glucagen) 1 mg Q15M PRN IM DECREASED GLUCOSE; Start 04/11/17 at 16:30 Glucose (Glutose) 15 gm Q15M PRN BUCCAL DECREASED GLUCOSE; Start 04/11/17 at 16 :30 Metoclopramide HCl (Reglan) 10 mg Q6 IV Last administered on 05/03/17 12:24; Admin Dose 10 MG; Start 04/12/17 at 18:00 Insulin Aspart (Novolog Insulin Pen) NOVOLOG *MILD* ALGORI... Q6H SC Last administered on 04/30/17 05:59; Admin Dose 1 UNIT; Start 04/15/17 at 00:00 IV Flush (NS 10 ml) 10 ml PRN PRN IV FLUSH LINE; Start 04/15/17 at 13:00 Amiodarone HCl (Cordarone) 200 mg BID GTB Last administered on 05/03/17 09:23 ; Admin Dose 200 MG; Start 04/16/17 at 13:00 Heparin Sodium (Porcine) (Heparin (5000 Units/0.5 ml)) 5,000 unit BID SC Last administered on 04/30/17 21:03; Admin Dose 5,000 UNIT; Start 04/18/17 at 16:22; Status Future Hold Citalopram Hydrobromide (Celexa) 20 mg DAILY NGT Last administered on 09:23; Admin Dose 20 MG; Start 04/19/17 at 09:00 Hydralazine HCl 20 mg 20 mg Q6H PRN IV sbp ABOVE 160 Last administered on 12:43; Admin Dose 20 MG; Start 04/18/17 at 18:30 Caspofungin/ Sodium Chloride (Cancidas/NS) 250 ml @ 250 mls/hr Q24H IV Last administered on 05/03/17 10:31; Admin Dose 250 MLS/HR; Start 04/21/17 at 10:00 Chlorhexidine Gluconate (Peridex) 15 ml BID MT Last administered on 05/03/17 09:22; Admin Dose 15 ML; Start 04/22/17 at 21:00 Vitamin A/Vitamin D (Vitamin A & D Oint) 1 applic TID TOP Last administered on 05/03/17 12:24; Admin Dose 1 APPLIC; Start 04/22/17 at 21:00 Vitamin A/Vitamin D (Vitamin A & D Oint) 1 applic TID PRN TOP DRYNESS Last administered on 04/22/17 15:29; Admin Dose 1 APPLIC; Start 04/22/17 at 15:00 Acetaminophen/ Hydrocodone Bitart ([place] (5/325)) 1 tab Q6H GTB Last administered on 05/03/17 09:31; Admin Dose 1 TAB; Start 04/22/17 at 21:30 Spironolactone (Aldactone) 25 mg DAILY NGT Last administered on 04/30/17 08:43 ; Admin Dose 25 MG; Start 04/25/17 at 19:00; Status Future Hold Diltiazem HCl 5 mg 5 mg Q1H PRN IV HEART RATE GREATER THAN 120 Last administered on 04/29/17 06:17; Admin Dose 5 MG; Start 04/29/17 at 05:00 Meropenem/Sodium Chloride (Merrem 500mg/50 ml(Pmx)) 50 ml @ 200 mls/hr Q12 IVPB Last administered on 05/03/17 09:23; Admin Dose 200 MLS/HR; Start at 12:00 Metoprolol Tartrate (Lopressor) 25 mg BID GTB Last administered on 04/30/17 21 :01; Admin Dose 25 MG; Start 04/30/17 at 21:00; Status Future Hold Valacyclovir HCl (Valtrex) 500 mg BID GTB Last administered on 05/03/17 09:22 ; Admin Dose 500 MG; Start 04/30/17 at 21:00 Metronidazole 500 mg 500 mg Q8 GTB Last administered on 05/03/17 05:39; Admin Dose 500 MG; Start 04/30/17 at 22:00 Dopamine HCl/ Dextrose 250 ml @ 4.875 mls/ hr TITRATE IV Last administered on 05/01/17 07:07; Admin Dose 48.75 MLS/HR; Start 05/01/17 at 02:30 Vasopressin/ Dextrose (Vasostrict/D5W) 60 ml @ 1.2 mls/hr Q12H IV Last administered on 05/01/17 02:48; Admin Dose 1.2 MLS/HR; Start 05/01/17 at 02:30 Hydrocortisone 100 mg 100 mg TID IV Last administered on 05/03/17 12:24; Admin Dose 100 MG; Start 05/01/17 at 09:00 Sodium Chloride 1,000 ml @ 0 mls/hr Q0M IV Last administered on 05/01/17 03: 00; Admin Dose 1,000 MLS/HR; Start 05/01/17 at 03:00 Sodium Chloride 1,000 ml @ 0 mls/hr Q0M IV Last administered on 05/01/17 04: 00; Admin Dose 1,000 MLS/HR; Start 05/01/17 at 03:30 Norepinephrine 16 mg/Dextrose 500 ml @ 1.87 mls/hr TITRATE IV Last administered on 05/01/17 10:13; Admin Dose 18.75 MLS/HR; Start 05/01/17 at 08: 00 Dextrose (D5W) 1,000 ml @ 75 mls/hr [id number] IV Last administered on 05/03/17 05:55; Admin Dose 75 MLS/HR; Start 05/02/17 at 07:30 Pantoprazole 40 mg 40 mg BID@06,18 IV Last administered on 05/03/17 05:31; Admin Dose 40 MG; Start 05/02/17 at 15:00 Diltiazem HCl (Cardizem-D5W 125 Mg/125 ml Drip) 125 ml @ 5 mls/hr TITRATE IV Last administered on 05/02/17 19:11; Admin Dose 5 MLS/HR; Start 05/02/17 at 19: 00 Furosemide (Lasix) 80 mg Q12 IV Last administered on 05/03/17 09:22; Admin Dose 80 MG; Start 05/03/17 at 09:00 ALYSSA THOMPSON MD May 03, 2017 13:11
--- NOTE | 2017-05-03 13:19 | CONS ---
Date/Time of Note Date/Time of Note DATE: 05/03/17 TIME: 13:14 Assessment/Plan Assessment/Plan Additional Assessment/Plan #1 GI bleeding manifested in the form of hematemesis and large burgundy color aspirate through G-tube 2. Vent dependent respiratory failure 3. Atrial fibrillation 4. Diabetes mellitus 5. Hypertension 6. Status post septic shock 7. Anemia 8. Prerenal azotemia 9. Status post cardiac arrest in the past Plan Transfuse 2 units of packed cell RBC bring hemoglobin greater than 7.5 We will proceed with EGD and perform therapeutic endoscopy Continue with PPI Refrain from all kind of blood thinner. Consultation Date/Type/Reason Admit Date/Time Apr 11, 2017 at 11:28 Hx of Present Illness Patient is a 66 year old female with a history of diabetes mellitus hypertension chronic vent dependency, history of tongue cancer status post resection has a G-tube. GI consult was called in for GI bleeding anemia requiring blood transfusion. Her other problems include aspiration pneumonia, atrial fibrillation well controlled. Patient also had a sepsis and fungemia successfully treated. Her G-tube aspirate shows burgundy colored fluid. Patient is off all the pressor support. She is on a steroid for adrenal insufficiency Subjective hx not possible: pt critical status (Patient is on vent) Constitutional: improved, no complaints Respiratory: no complaints, shortness of breath Cardiovascular: no complaints, other (Atrial fibrillation) Gastrointestinal: no complaints, other (GI bleeding hematemesis), vomiting Musculoskeletal: no complaints Skin: no complaints Neurologic: no complaints Psychological: nl mood/affect, no complaints Past Medical History Medical History: cancer (tongue), high cholesterol, hypertension, hypothyroid, renal disease, other (dysphagia w/ recurrent aspiration pneumonia, atrial fibrillation, steroid dependence) Past Surgical History Past Surgical Hx: other (G tube, prior trach, tongue resection) Social History Alcohol Use: none Smoking Status: Never smoker Drug Use: none Exam/Review of Systems Vital Signs Vitals Vital Signs Date Time Temp Pulse Resp B/P Pulse Ox O2 Delivery O2 Flow Rate FiO2 05/03/17 11:00 103 18 131/73 100 Mechanical Ventilator 05/03/17 09:50 60 05/03/17 08:00 97.1 05/01/17 00:30 15.0 Intake and Output 05/02/17 05/02/17 05/03/17 15:00 23:00 07:00 Intake Total 1100 ml 1420 ml 105 ml Output Total 120 ml 110 ml 100 ml Balance 980 ml 1310 ml 5 ml Exam Cardiovascular: other (Atrial) Gastrointestinal: nl liver, spleen, non-tender, other (GI bleeding), soft Genitourinary - Female: nl adnexae, nl external genitalia Musculoskeletal: nl extremities to inspection Extremities: normal pulses Neurological: HAULAGE BOSS II-XII intact, nl mental status, nl speech, nl strength Results Result Diagram: 05/03/1743905/03/17439 Results 24 hrs Laboratory Tests Test 05/02/17 17:22 05/02/17 23:45 05/03/17 04:37 05/03/17 04:40 Bedside Glucose 114 144 150 White Blood Count 33.7 H Red Blood Count 3.37 #L Hemoglobin 10.0 #L Hematocrit 30.0 #L Mean Corpuscular Volume 89.0 Mean Corpuscular Hemoglobin 29.7 Mean Corpuscular Hemoglobin Concent 33.3 Red Cell Distribution Width 22.6 H Platelet Count 115 L Mean Platelet Volume 12.6 H Neutrophils % 94.1 H Lymphocytes % 1.7 L Monocytes % 2.4 Eosinophils % 0.0 Basophils % 0.2 Nucleated Red Blood Cells % 0.0 Neutrophils # 31.7 H Lymphocytes # 0.6 L Monocytes # 0.8 Eosinophils # 0.0 Basophils # 0.1 Nucleated Red Blood Cells # 0.0 Sodium Level 150 H Potassium Level 4.6 Chloride Level 110 Carbon Dioxide Level 26 Anion Gap 19 H Blood Urea Nitrogen 85 H Creatinine 1.85 H Glucose Level 142 # Calcium Level 8.7 Phosphorus Level 5.2 H Magnesium Level 2.2 Test 05/03/17 05:18 05/03/17 12:23 Lab Scanned Report BLOOD TRANSFUSION Bedside Glucose 135 Medications Medications Current Medications Aspirin (Aspirin) 325 mg DAILY NGT Last administered on 04/30/17 08:43; Admin Dose 325 MG; Start 04/12/17 at 09:00; Status Future Hold Metoprolol Tartrate (Lopressor) 5 mg Q4H PRN IV HR>110 Hold SBP<110 Last administered on 04/20/17 17:36; Admin Dose 5 MG; Start 04/11/17 at 13:30 Miscellaneous Information 1 ea NOTE XX ; Start 04/11/17 at 16:30 Glucose (Glutose) 15 gm Q15M PRN PO DECREASED GLUCOSE; Start 04/11/17 at 16:30 Glucose (Glutose) 22.5 gm Q15M PRN PO DECREASED GLUCOSE; Start 04/11/17 at 16: 30 Dextrose (D50w Syringe) 25 ml Q15M PRN IV DECREASED GLUCOSE Last administered on 04/12/17 23:56; Admin Dose 25 ML; Start 04/11/17 at 16:30 Dextrose (D50w Syringe) 50 ml Q15M PRN IV DECREASED GLUCOSE; Start 04/11/17 at 16:30 Glucagon (Glucagen) 1 mg Q15M PRN IM DECREASED GLUCOSE; Start 04/11/17 at 16:30 Glucose (Glutose) 15 gm Q15M PRN BUCCAL DECREASED GLUCOSE; Start 04/11/17 at 16 :30 Metoclopramide HCl (Reglan) 10 mg Q6 IV Last administered on 05/03/17 12:24; Admin Dose 10 MG; Start 04/12/17 at 18:00 Insulin Aspart (Novolog Insulin Pen) NOVOLOG *MILD* ALGORI... Q6H SC Last administered on 04/30/17 05:59; Admin Dose 1 UNIT; Start 04/15/17 at 00:00 IV Flush (NS 10 ml) 10 ml PRN PRN IV FLUSH LINE; Start 04/15/17 at 13:00 Amiodarone HCl (Cordarone) 200 mg BID GTB Last administered on 05/03/17 09:23 ; Admin Dose 200 MG; Start 04/16/17 at 13:00 Heparin Sodium (Porcine) (Heparin (5000 Units/0.5 ml)) 5,000 unit BID SC Last administered on 04/30/17 21:03; Admin Dose 5,000 UNIT; Start 04/18/17 at 16:22; Status Future Hold Citalopram Hydrobromide (Celexa) 20 mg DAILY NGT Last administered on 09:23; Admin Dose 20 MG; Start 04/19/17 at 09:00 Hydralazine HCl 20 mg 20 mg Q6H PRN IV sbp ABOVE 160 Last administered on 12:43; Admin Dose 20 MG; Start 04/18/17 at 18:30 Caspofungin/ Sodium Chloride (Cancidas/NS) 250 ml @ 250 mls/hr Q24H IV Last administered on 05/03/17 10:31; Admin Dose 250 MLS/HR; Start 04/21/17 at 10:00 Chlorhexidine Gluconate (Peridex) 15 ml BID MT Last administered on 05/03/17 09:22; Admin Dose 15 ML; Start 04/22/17 at 21:00 Vitamin A/Vitamin D (Vitamin A & D Oint) 1 applic TID TOP Last administered on 05/03/17 12:24; Admin Dose 1 APPLIC; Start 04/22/17 at 21:00 Vitamin A/Vitamin D (Vitamin A & D Oint) 1 applic TID PRN TOP DRYNESS Last administered on 04/22/17 15:29; Admin Dose 1 APPLIC; Start 04/22/17 at 15:00 Acetaminophen/ Hydrocodone Bitart ([place] (5/325)) 1 tab Q6H GTB Last administered on 05/03/17 09:31; Admin Dose 1 TAB; Start 04/22/17 at 21:30 Spironolactone (Aldactone) 25 mg DAILY NGT Last administered on 04/30/17 08:43 ; Admin Dose 25 MG; Start 04/25/17 at 19:00; Status Future Hold Diltiazem HCl 5 mg 5 mg Q1H PRN IV HEART RATE GREATER THAN 120 Last administered on 04/29/17 06:17; Admin Dose 5 MG; Start 04/29/17 at 05:00 Meropenem/Sodium Chloride (Merrem 500mg/50 ml(Pmx)) 50 ml @ 200 mls/hr Q12 IVPB Last administered on 05/03/17 09:23; Admin Dose 200 MLS/HR; Start at 12:00 Metoprolol Tartrate (Lopressor) 25 mg BID GTB Last administered on 04/30/17 21 :01; Admin Dose 25 MG; Start 04/30/17 at 21:00; Status Future Hold Valacyclovir HCl (Valtrex) 500 mg BID GTB Last administered on 05/03/17 09:22 ; Admin Dose 500 MG; Start 04/30/17 at 21:00 Metronidazole 500 mg 500 mg Q8 GTB Last administered on 05/03/17 05:39; Admin Dose 500 MG; Start 04/30/17 at 22:00 Dopamine HCl/ Dextrose 250 ml @ 4.875 mls/ hr TITRATE IV Last administered on 05/01/17 07:07; Admin Dose 48.75 MLS/HR; Start 05/01/17 at 02:30 Vasopressin/ Dextrose (Vasostrict/D5W) 60 ml @ 1.2 mls/hr Q12H IV Last administered on 05/01/17 02:48; Admin Dose 1.2 MLS/HR; Start 05/01/17 at 02:30 Hydrocortisone 100 mg 100 mg TID IV Last administered on 05/03/17 12:24; Admin Dose 100 MG; Start 05/01/17 at 09:00 Sodium Chloride 1,000 ml @ 0 mls/hr Q0M IV Last administered on 05/01/17 03: 00; Admin Dose 1,000 MLS/HR; Start 05/01/17 at 03:00 Sodium Chloride 1,000 ml @ 0 mls/hr Q0M IV Last administered on 05/01/17 04: 00; Admin Dose 1,000 MLS/HR; Start 05/01/17 at 03:30 Norepinephrine 16 mg/Dextrose 500 ml @ 1.87 mls/hr TITRATE IV Last administered on 05/01/17 10:13; Admin Dose 18.75 MLS/HR; Start 05/01/17 at 08: 00 Dextrose (D5W) 1,000 ml @ 75 mls/hr [id number] IV Last administered on 05/03/17 05:55; Admin Dose 75 MLS/HR; Start 05/02/17 at 07:30 Pantoprazole 40 mg 40 mg BID@06,18 IV Last administered on 05/03/17 05:31; Admin Dose 40 MG; Start 05/02/17 at 15:00 Diltiazem HCl (Cardizem-D5W 125 Mg/125 ml Drip) 125 ml @ 5 mls/hr TITRATE IV Last administered on 05/02/17 19:11; Admin Dose 5 MLS/HR; Start 05/02/17 at 19: 00 Furosemide (Lasix) 80 mg Q12 IV Last administered on 05/03/17 09:22; Admin Dose 80 MG; Start 05/03/17 at 09:00 ALYSSA THOMPSON MD May 03, 2017 13:19
--- NOTE | 2017-05-03 15:43 | PN ---
Date/Time of Note Date/Time of Note DATE: 05/03/17 TIME: 15:40 Assessment/Plan VTE Prophylaxis VTE Prophylaxis Intervention: other Lines/Catheters IV Catheter Type (from Nrs): PICC Line Central line still needed: Yes Urinary Cath still in place: Yes Reason Cath still needed: other (indicate) Assessment/Plan Chief Complaint/Hosp Course 1. acute on chronic hypoxemic respiratory failure: 2. NSTEMI: due to demand ischemia. 3. CHF/ fluid overload: due to diastolic heart failure 4. moderate 5. Arrhythmia and P afib, frequent PVC: 6. ANEMIA 7. pneumonia, severe leukocytosis now. 8. sepsis and shock: BACK ON 3 pressors now 9. Anasarca 10. s/p cardiopulm arrest due to resp failure 11. renal failure 12. coagulopathy Rec: off of ASA due to active bleeding and severe anemia and coagulopathy. resp care as per PULM Team. correct lytes prn. cont ICU care. resume betablocker now that BP has been better. cardizem IV prn . thyroid supplement . will closely monitor in ICU. diuretics as tolerated. transfuse prn Problems: Subjective 24 Hr Interval Summary Free Text/Dictation ARDIOLOGY FOLLOW UP/ critical care note: D/W staff , and . rhythm was reviewed. pt has converted to Afib with RVR over night. HR is under better control with cardizem drip d/w pt still s/p trach on vent Objective: General: s/p craicotomy. on vent HEENT: NC/AT. . oropharynx with old blood and multiple lesions. . NECK: NO JVD. no stridor. s/p trach on vent CV: irregularly irregular . systolic ejection murmur; no gallop or rubs. PULM: + diffuse rhonchi. GI: SOFT, NT, ND, no rebound or guarding s/p PEG Extremity: 3+ B/L LE edema. no clubbing. neuro: opens her eye Psych: calm rectal: deferred Derm: multiple echymosis Exam/Review of Systems Vital Signs Vitals Vital Signs Date Time Temp Pulse Resp B/P Pulse Ox O2 Delivery O2 Flow Rate FiO2 05/03/17 15:00 92 24 130/78 100 Mechanical Ventilator 05/03/17 13:55 60 05/03/17 12:00 97.0 05/01/17 00:30 15.0 Intake and Output 05/02/17 05/02/17 05/03/17 15:00 23:00 07:00 Intake Total 1100 ml 1420 ml 180 ml Output Total 120 ml 110 ml 100 ml Balance 980 ml 1310 ml 80 ml Results Result Diagram: 05/03/17 0440 05/03/17 0440 Results 24 hrs Laboratory Tests Test 05/02/17 17:22 05/02/17 23:45 05/03/17 04:37 05/03/17 04:40 Bedside Glucose 114 144 150 White Blood Count 33.7 H Red Blood Count 3.37 #L Hemoglobin 10.0 #L Hematocrit 30.0 #L Mean Corpuscular Volume 89.0 Mean Corpuscular Hemoglobin 29.7 Mean Corpuscular Hemoglobin Concent 33.3 Red Cell Distribution Width 22.6 H Platelet Count 115 L Mean Platelet Volume 12.6 H Neutrophils % 94.1 H Lymphocytes % 1.7 L Monocytes % 2.4 Eosinophils % 0.0 Basophils % 0.2 Nucleated Red Blood Cells % 0.0 Neutrophils # 31.7 H Lymphocytes # 0.6 L Monocytes # 0.8 Eosinophils # 0.0 Basophils # 0.1 Nucleated Red Blood Cells # 0.0 Sodium Level 150 H Potassium Level 4.6 Chloride Level 110 Carbon Dioxide Level 26 Anion Gap 19 H Blood Urea Nitrogen 85 H Creatinine 1.85 H Glucose Level 142 # Calcium Level 8.7 Phosphorus Level 5.2 H Magnesium Level 2.2 Test 05/03/17 05:18 05/03/17 12:23 Lab Scanned Report BLOOD TRANSFUSION Bedside Glucose 135 Medications Medications Current Medications Aspirin (Aspirin) 325 mg DAILY NGT Last administered on 04/30/17 08:43; Admin Dose 325 MG; Start 04/12/17 at 09:00; Status Future Hold Metoprolol Tartrate (Lopressor) 5 mg Q4H PRN IV HR>110 Hold SBP<110 Last administered on 04/20/17 17:36; Admin Dose 5 MG; Start 04/11/17 at 13:30 Miscellaneous Information 1 ea NOTE XX ; Start 04/11/17 at 16:30 Glucose (Glutose) 15 gm Q15M PRN PO DECREASED GLUCOSE; Start 04/11/17 at 16:30 Glucose (Glutose) 22.5 gm Q15M PRN PO DECREASED GLUCOSE; Start 04/11/17 at 16: 30 Dextrose (D50w Syringe) 25 ml Q15M PRN IV DECREASED GLUCOSE Last administered on 04/12/17 23:56; Admin Dose 25 ML; Start 04/11/17 at 16:30 Dextrose (D50w Syringe) 50 ml Q15M PRN IV DECREASED GLUCOSE; Start 04/11/17 at 16:30 Glucagon (Glucagen) 1 mg Q15M PRN IM DECREASED GLUCOSE; Start 04/11/17 at 16:30 Glucose (Glutose) 15 gm Q15M PRN BUCCAL DECREASED GLUCOSE; Start 04/11/17 at 16 :30 Metoclopramide HCl (Reglan) 10 mg Q6 IV Last administered on 05/03/17 12:24; Admin Dose 10 MG; Start 04/12/17 at 18:00 Insulin Aspart (Novolog Insulin Pen) NOVOLOG *MILD* ALGORI... Q6H SC Last administered on 04/30/17 05:59; Admin Dose 1 UNIT; Start 04/15/17 at 00:00 IV Flush (NS 10 ml) 10 ml PRN PRN IV FLUSH LINE; Start 04/15/17 at 13:00 Amiodarone HCl (Cordarone) 200 mg BID GTB Last administered on 05/03/17 09:23 ; Admin Dose 200 MG; Start 04/16/17 at 13:00 Heparin Sodium (Porcine) (Heparin (5000 Units/0.5 ml)) 5,000 unit BID SC Last administered on 04/30/17 21:03; Admin Dose 5,000 UNIT; Start 04/18/17 at 16:22; Status Future Hold Citalopram Hydrobromide (Celexa) 20 mg DAILY NGT Last administered on 09:23; Admin Dose 20 MG; Start 04/19/17 at 09:00 Hydralazine HCl 20 mg 20 mg Q6H PRN IV sbp ABOVE 160 Last administered on 12:43; Admin Dose 20 MG; Start 04/18/17 at 18:30 Caspofungin/ Sodium Chloride (Cancidas/NS) 250 ml @ 250 mls/hr Q24H IV Last administered on 05/03/17 10:31; Admin Dose 250 MLS/HR; Start 04/21/17 at 10:00 Chlorhexidine Gluconate (Peridex) 15 ml BID MT Last administered on 05/03/17 09:22; Admin Dose 15 ML; Start 04/22/17 at 21:00 Vitamin A/Vitamin D (Vitamin A & D Oint) 1 applic TID TOP Last administered on 05/03/17 12:24; Admin Dose 1 APPLIC; Start 04/22/17 at 21:00 Vitamin A/Vitamin D (Vitamin A & D Oint) 1 applic TID PRN TOP DRYNESS Last administered on 04/22/17 15:29; Admin Dose 1 APPLIC; Start 04/22/17 at 15:00 Acetaminophen/ Hydrocodone Bitart ([place] (5/325)) 1 tab Q6H GTB Last administered on 05/03/17 15:31; Admin Dose 1 TAB; Start 04/22/17 at 21:30 Spironolactone (Aldactone) 25 mg DAILY NGT Last administered on 04/30/17 08:43 ; Admin Dose 25 MG; Start 04/25/17 at 19:00; Status Future Hold Diltiazem HCl 5 mg 5 mg Q1H PRN IV HEART RATE GREATER THAN 120 Last administered on 04/29/17 06:17; Admin Dose 5 MG; Start 04/29/17 at 05:00 Meropenem/Sodium Chloride (Merrem 500mg/50 ml(Pmx)) 50 ml @ 200 mls/hr Q12 IVPB Last administered on 05/03/17 09:23; Admin Dose 200 MLS/HR; Start at 12:00 Metoprolol Tartrate (Lopressor) 25 mg BID GTB Last administered on 04/30/17 21 :01; Admin Dose 25 MG; Start 04/30/17 at 21:00; Status Future Hold Valacyclovir HCl (Valtrex) 500 mg BID GTB Last administered on 05/03/17 09:22 ; Admin Dose 500 MG; Start 04/30/17 at 21:00 Metronidazole 500 mg 500 mg Q8 GTB Last administered on 05/03/17 14:39; Admin Dose 500 MG; Start 04/30/17 at 22:00 Dopamine HCl/ Dextrose 250 ml @ 4.875 mls/ hr TITRATE IV Last administered on 05/01/17 07:07; Admin Dose 48.75 MLS/HR; Start 05/01/17 at 02:30 Vasopressin/ Dextrose (Vasostrict/D5W) 60 ml @ 1.2 mls/hr Q12H IV Last administered on 05/01/17 02:48; Admin Dose 1.2 MLS/HR; Start 05/01/17 at 02:30 Hydrocortisone 100 mg 100 mg TID IV Last administered on 05/03/17 12:24; Admin Dose 100 MG; Start 05/01/17 at 09:00 Sodium Chloride 1,000 ml @ 0 mls/hr Q0M IV Last administered on 05/01/17 03: 00; Admin Dose 1,000 MLS/HR; Start 05/01/17 at 03:00 Sodium Chloride 1,000 ml @ 0 mls/hr Q0M IV Last administered on 05/01/17 04: 00; Admin Dose 1,000 MLS/HR; Start 05/01/17 at 03:30 Norepinephrine 16 mg/Dextrose 500 ml @ 1.87 mls/hr TITRATE IV Last administered on 05/01/17 10:13; Admin Dose 18.75 MLS/HR; Start 05/01/17 at 08: 00 Dextrose (D5W) 1,000 ml @ 75 mls/hr [id number] IV Last administered on 05/03/17 05:55; Admin Dose 75 MLS/HR; Start 05/02/17 at 07:30 Pantoprazole 40 mg 40 mg BID@06,18 IV Last administered on 05/03/17 05:31; Admin Dose 40 MG; Start 05/02/17 at 15:00 Diltiazem HCl (Cardizem-D5W 125 Mg/125 ml Drip) 125 ml @ 5 mls/hr TITRATE IV Last administered on 05/02/17 19:11; Admin Dose 5 MLS/HR; Start 05/02/17 at 19: 00 Furosemide (Lasix) 80 mg Q12 IV Last administered on 05/03/17 09:22; Admin Dose 80 MG; Start 05/03/17 at 09:00 FRANCISCO BLACKWOOD MD May 03, 2017 15:43
--- NOTE | 2017-05-03 16:20 | CONS ---
Date/Time of Note Date/Time of Note DATE: 05/03/17 TIME: 15:57 Assessment/Plan Assessment/Plan Problems: (1) Cardiopulmonary arrest with successful resuscitation Status: Resolved Comment: code blue performed with successful resuscitation on 12/02/2016 (2) Steroid dependence Status: Chronic Comment: Patient is currently back on stress dose of steroids. Will continue this dose and slowly wean back down as tolerated. Additional Assessment/Plan Guarded prognosis. Consultation Date/Type/Reason Admit Date/Time Apr 11, 2017 at 11:28 Initial Consult Date 05/01/17 Type of Consultation: Endocrine Referring Provider: NINA MACIEL DO 24 HR Interval Summary Free Text/Dictation On 05/01/2017 patient decompensated and was re intubated and transferred back to ICU. At that time hydrocortisone was increased back up to 100mg TID. On 2016 and upper GI was performed and an antral AVM was seen and cauterized. Subjective hx not possible: pt non-verbal Exam/Review of Systems Vital Signs Vitals Vital Signs Date Time Temp Pulse Resp B/P Pulse Ox O2 Delivery O2 Flow Rate FiO2 05/03/17 15:00 92 24 130/78 100 Mechanical Ventilator 05/03/17 13:55 60 05/03/17 12:00 97.0 05/01/17 00:30 15.0 Intake and Output 05/02/17 05/02/17 05/03/17 15:00 23:00 07:00 Intake Total 1100 ml 1420 ml 180 ml Output Total 120 ml 110 ml 100 ml Balance 980 ml 1310 ml 80 ml Exam Constitutional: alert, non-verbal Neck: other (tracheostomy) Respiratory: other (breathing at rate of ventilator) Cardiovascular: other (tachycardia) Gastrointestinal: soft Extremities: edema Neurological: other (nonverbal) Results Vitals, labs and POC glucose reviewed Result Diagram: 05/03/17 0440 05/03/17 0440 Results 24 hrs Laboratory Tests Test 05/02/17 17:22 05/02/17 23:45 05/03/17 04:37 05/03/17 04:40 Bedside Glucose 114 144 150 White Blood Count 33.7 H Red Blood Count 3.37 #L Hemoglobin 10.0 #L Hematocrit 30.0 #L Mean Corpuscular Volume 89.0 Mean Corpuscular Hemoglobin 29.7 Mean Corpuscular Hemoglobin Concent 33.3 Red Cell Distribution Width 22.6 H Platelet Count 115 L Mean Platelet Volume 12.6 H Neutrophils % 94.1 H Lymphocytes % 1.7 L Monocytes % 2.4 Eosinophils % 0.0 Basophils % 0.2 Nucleated Red Blood Cells % 0.0 Neutrophils # 31.7 H Lymphocytes # 0.6 L Monocytes # 0.8 Eosinophils # 0.0 Basophils # 0.1 Nucleated Red Blood Cells # 0.0 Sodium Level 150 H Potassium Level 4.6 Chloride Level 110 Carbon Dioxide Level 26 Anion Gap 19 H Blood Urea Nitrogen 85 H Creatinine 1.85 H Glucose Level 142 # Calcium Level 8.7 Phosphorus Level 5.2 H Magnesium Level 2.2 Test 05/03/17 05:18 05/03/17 12:23 Lab Scanned Report BLOOD TRANSFUSION Bedside Glucose 135 Medications Medications Current Medications Aspirin (Aspirin) 325 mg DAILY NGT Last administered on 04/30/17 08:43; Admin Dose 325 MG; Start 04/12/17 at 09:00; Status Future Hold Metoprolol Tartrate (Lopressor) 5 mg Q4H PRN IV HR>110 Hold SBP<110 Last administered on 04/20/17 17:36; Admin Dose 5 MG; Start 04/11/17 at 13:30 Miscellaneous Information 1 ea NOTE XX ; Start 04/11/17 at 16:30 Glucose (Glutose) 15 gm Q15M PRN PO DECREASED GLUCOSE; Start 04/11/17 at 16:30 Glucose (Glutose) 22.5 gm Q15M PRN PO DECREASED GLUCOSE; Start 04/11/17 at 16: 30 Dextrose (D50w Syringe) 25 ml Q15M PRN IV DECREASED GLUCOSE Last administered on 04/12/17 23:56; Admin Dose 25 ML; Start 04/11/17 at 16:30 Dextrose (D50w Syringe) 50 ml Q15M PRN IV DECREASED GLUCOSE; Start 04/11/17 at 16:30 Glucagon (Glucagen) 1 mg Q15M PRN IM DECREASED GLUCOSE; Start 04/11/17 at 16:30 Glucose (Glutose) 15 gm Q15M PRN BUCCAL DECREASED GLUCOSE; Start 04/11/17 at 16 :30 Metoclopramide HCl (Reglan) 10 mg Q6 IV Last administered on 05/03/17 12:24; Admin Dose 10 MG; Start 04/12/17 at 18:00 Insulin Aspart (Novolog Insulin Pen) NOVOLOG *MILD* ALGORI... Q6H SC Last administered on 04/30/17 05:59; Admin Dose 1 UNIT; Start 04/15/17 at 00:00 IV Flush (NS 10 ml) 10 ml PRN PRN IV FLUSH LINE; Start 04/15/17 at 13:00 Amiodarone HCl (Cordarone) 200 mg BID GTB Last administered on 05/03/17 09:23 ; Admin Dose 200 MG; Start 04/16/17 at 13:00 Heparin Sodium (Porcine) (Heparin (5000 Units/0.5 ml)) 5,000 unit BID SC Last administered on 04/30/17 21:03; Admin Dose 5,000 UNIT; Start 04/18/17 at 16:22; Status Future Hold Citalopram Hydrobromide (Celexa) 20 mg DAILY NGT Last administered on 09:23; Admin Dose 20 MG; Start 04/19/17 at 09:00 Hydralazine HCl 20 mg 20 mg Q6H PRN IV sbp ABOVE 160 Last administered on 12:43; Admin Dose 20 MG; Start 04/18/17 at 18:30 Caspofungin/ Sodium Chloride (Cancidas/NS) 250 ml @ 250 mls/hr Q24H IV Last administered on 05/03/17 10:31; Admin Dose 250 MLS/HR; Start 04/21/17 at 10:00 Chlorhexidine Gluconate (Peridex) 15 ml BID MT Last administered on 05/03/17 09:22; Admin Dose 15 ML; Start 04/22/17 at 21:00 Vitamin A/Vitamin D (Vitamin A & D Oint) 1 applic TID TOP Last administered on 05/03/17 12:24; Admin Dose 1 APPLIC; Start 04/22/17 at 21:00 Vitamin A/Vitamin D (Vitamin A & D Oint) 1 applic TID PRN TOP DRYNESS Last administered on 04/22/17 15:29; Admin Dose 1 APPLIC; Start 04/22/17 at 15:00 Acetaminophen/ Hydrocodone Bitart ([place] (5/325)) 1 tab Q6H GTB Last administered on 05/03/17 15:31; Admin Dose 1 TAB; Start 04/22/17 at 21:30 Spironolactone (Aldactone) 25 mg DAILY NGT Last administered on 04/30/17 08:43 ; Admin Dose 25 MG; Start 04/25/17 at 19:00; Status Future Hold Diltiazem HCl 5 mg 5 mg Q1H PRN IV HEART RATE GREATER THAN 120 Last administered on 04/29/17 06:17; Admin Dose 5 MG; Start 04/29/17 at 05:00 Meropenem/Sodium Chloride (Merrem 500mg/50 ml(Pmx)) 50 ml @ 200 mls/hr Q12 IVPB Last administered on 05/03/17 09:23; Admin Dose 200 MLS/HR; Start at 12:00 Metoprolol Tartrate (Lopressor) 25 mg BID GTB Last administered on 04/30/17 21 :01; Admin Dose 25 MG; Start 04/30/17 at 21:00; Status Future hold Valacyclovir HCl (Valtrex) 500 mg BID GTB Last administered on 05/03/17 09:22 ; Admin Dose 500 MG; Start 04/30/17 at 21:00 Metronidazole 500 mg 500 mg Q8 GTB Last administered on 05/03/17 14:39; Admin Dose 500 MG; Start 04/30/17 at 22:00 Dopamine HCl/ Dextrose 250 ml @ 4.875 mls/ hr TITRATE IV Last administered on 05/01/17 07:07; Admin Dose 48.75 MLS/HR; Start 05/01/17 at 02:30 Vasopressin/ Dextrose (Vasostrict/D5W) 60 ml @ 1.2 mls/hr Q12H IV Last administered on 05/01/17 02:48; Admin Dose 1.2 MLS/HR; Start 05/01/17 at 02:30 Hydrocortisone 100 mg 100 mg TID IV Last administered on 05/03/17 12:24; Admin Dose 100 MG; Start 05/01/17 at 09:00 Sodium Chloride 1,000 ml @ 0 mls/hr Q0M IV Last administered on 05/01/17 03: 00; Admin Dose 1,000 MLS/HR; Start 05/01/17 at 03:00 Sodium Chloride 1,000 ml @ 0 mls/hr Q0M IV Last administered on 05/01/17 04: 00; Admin Dose 1,000 MLS/HR; Start 05/01/17 at 03:30 Norepinephrine 16 mg/Dextrose 500 ml @ 1.87 mls/hr TITRATE IV Last administered on 05/01/17 10:13; Admin Dose 18.75 MLS/HR; Start 05/01/17 at 08: 00 Dextrose (D5W) 1,000 ml @ 75 mls/hr [id number] IV Last administered on 05/03/17 05:55; Admin Dose 75 MLS/HR; Start 05/02/17 at 07:30 Pantoprazole 40 mg 40 mg BID@06,18 IV Last administered on 05/03/17 05:31; Admin Dose 40 MG; Start 05/02/17 at 15:00 Diltiazem HCl (Cardizem-D5W 125 Mg/125 ml Drip) 125 ml @ 5 mls/hr TITRATE IV Last administered on 05/02/17 19:11; Admin Dose 5 MLS/HR; Start 05/02/17 at 19: 00 Furosemide (Lasix) 80 mg Q12 IV Last administered on 05/03/17 09:22; Admin Dose 80 MG; Start 05/03/17 at 09:00 CHRISTI HART MD May 03, 2017 16:07
--- NOTE | 2017-05-03 20:26 | PN ---
Date/Time of Note Date/Time of Note DATE: 05/03/17 TIME: 20:24 Assessment/Plan Lines/Catheters IV Catheter Type (from [facility]): PICC Line Latif in Place (from [facility]): Yes Assessment/Plan Chief Complaint/Hosp Course 1. Cholelithiasis ? cholecystitis: Ct abd: sludge and small stones in the gallbladder. No gallbladder wall thickening is noted with some pericholecystic fluid is present. Patient off pressors; GT/OGT no output; HIDA positive; IR drain placement cancelled by radiologist since US without evidence of infection. Therefore, Dr. Guadalupe believes the HIDA is false positive. Tolerating tube feeds; no abdominal pain/discomfort; LFT's increased, bili nl (s/p code with blood loss) -No surgical intervention required at this time 2. Pneumonia: Recurrent; no fevers; reintubated; less secretion sputum cx: PSEUDOMONAS AERUGINOSA, K PNEUMO ESBL, NASRIN GLABRATA; appears comfortable -pulmonary toilet -abx per ID 3. Vent dependent respiratory failure: 2/2 aspiration PNA+ CHF;reintubated and extubated, coded 04/21 and 05/01; currently reintubated -as above 4. Septic shock: improved -on abx -supportive 5. Uncontrolled Afib: s/p amiodarone drip, on oral amiodarone; episodes of Afib Now SR -medical optimization -lovenox 6. Elevated troponin:NSTEMI; septic shock/demand ischemia -trend 7. Leukocytosis with lactic acidosis: 2/2 pneumonia vs. steroids vs.fungemia vs other (urine, repeat blood cultures negative);wbc improved: s/p code -abx, antifungals -judicious fluid management -supportive measures 8. KEYONNA: likely 2/2 septic shock; s/p code; cr up -judicious fluid management -avoid nephrotoxic agents 9. CHF: BNP elevated -judicious fluid management -medical optimization 10. Adrenal Insufficiency -solucortef 11. Hypomagnesemia: -electrolyte optimization -monitor for cardiac abnormalities 12. Hypothyroidism; tsh elevated -on synthroid 13. Macrocytic anemia: chronic vs. dilutional vs. acute bleed vs. b12/folate deficiency; neeru blood noted orally during code; prbc transfusion; h/h unchanged; coffee ground gastric aspirate -monitor -Transfuse as needed -?heme/onc consult -GI consult 14. Transaminitis: likely 2/2 septic shock vs. cholecystitis; up s/p code -trend, monitor 15. Diarrhea: 2/2 abx vs. enteritis: resolved; tolerating tf -? probiotics 16. Thrombocytosis: 2/2 inflammatory vs. drug induced vs. other -monitor -bleeding precautions -supportive 17. Encephalopathy: 2/2 toxic metabolic vs. anoxic injury; CT: No acute intracranial hemorrhage or mass effect. Mild chronic microvascular disease and intracranial atherosclerosis; EEG shows no seizure activity -supportive 18. Bilateral upper extremity edema: likely 2/2 decreased movement vs. thrombosis; initial doppler negative, repeat doppler left arm (+) Thrombus -elevate extremities -supportive -anticoagulation 19. Hypoalbuminemia: 2/2 malnutrition +/- inflammation; decreased; tolerating tf ; -nutrition optimization -as above 20 Hypernatremia: -judicious fluid management 21. Hypocalcemia:normalized -optimize nutrition 22. Fungemia -antifungals 23. Hyperkalemia -optimize lytes 24. Oral lesions Thank you, Problems: Subjective 24 Hr Interval Summary Arousable. Min bloating. No vomiting. No sz. No rash. Bowel function. No jt swelling. Exam/Review of Systems Vital Signs Vitals Vital Signs Date Time Temp Pulse Resp B/P Pulse Ox O2 Delivery O2 Flow Rate FiO2 05/03/17 19:11 87 24 100 55 05/03/17 19:00 126/89 Mechanical Ventilator 05/03/17 16:00 97.1 05/01/17 00:30 15.0 Intake and Output 05/02/17 05/02/17 05/03/17 15:00 23:00 07:00 Intake Total 1100 ml 1420 ml 180 ml Output Total 120 ml 110 ml 100 ml Balance 980 ml 1310 ml 80 ml Exam Free Text/Dictation Constitutional: lethargic, appears comfortable Head: atraumatic, normocephalic Eyes: PERRL, nl lids, nl sclera ENMT: No mucosa pink and moist (pink and moist with perioral lesions) Neck: non-tender, supple, tracheostomy Respiratory: diminished, comfortable, on nasal canula Cardiovascular: nl pulses, regular rate and rhythm, NSR, Gastrointestinal: min distended, GT tubes site no erythema, no drainage, non tenderness, bowel sounds x 4 quads Genitourinary - Female: nl external genitalia Musculoskeletal: nl extremities to inspection Extremities: normal pulses, bilateral upper/lower extremity edema Neurological: responsive Skin: nl turgor, No rash or lesions Lymph: nl lymph nodes Results Result Diagram: 05/03/1743905/03/17439 PATRICK QUINTERO MD May 03, 2017 20:26
[2017-05-03] MEDS: METOPROLOL 25 MG TAB GTB SCH ×2 (21:00→21:26)
[2017-05-04] VITALS (37 sets, daily range): BP systolic 103–143; BP diastolic 51–108; PULSE 76–131; RESP 14–24
[2017-05-04] MEDS: METOCLOPRAMIDE 10 MG INJ IV SCH ×5 (00:37→23:19)
[2017-05-04] MEDS: LEVALBUTEROL (HFA) 15 GM INHALER INH SCH ×4 (01:21→19:15)
[2017-05-04] MEDS: VASOPRESSIN 60 UNIT in DEXTROSE 5% 57 ML IV SCH ×2 (02:30→14:30)
[2017-05-04] MEDS: HYDROCODONE/APAP (5/325) TAB GTB SCH ×4 (03:40→23:20)
[2017-05-04 05:26] LABS: ABNORMAL IP MESSAGE 1; BASOPHILS % 0.1 % (0.0-2.0); HEMATOCRIT 29.1 % (37.0-47.0); HEMOGLOBIN 9.5 g/dl (12.0-16.0); LYMPHOCYTES # 0.5 10^3/ul (0.8-2.9); LYMPHOCYTES % 2.2 % (15.0-51.0); MEAN CORPUSCULAR HEMOGLOBIN 29.1 pg (29.0-33.0); MEAN CORPUSCULAR HGB CONC 32.6 g/dl (32.0-37.0); MONOCYTE # 0.6 10^3/ul (0.3-0.9); MONOCYTES % 2.5 % (0.0-11.0); NEUTROPHIL # 22.6 10^3/ul (1.6-7.5); NUCLEATED RED BLOOD CELLS% 0.1 /100WBC (0.0-0.0); PLATELET COUNT 120 10^3/UL (140-415); RED BLOOD COUNT 3.27 10^6/ul (4.20-5.40); RED CELL DISTRIBUTION WIDTH 22.2 % (11.5-14.5); WHITE BLOOD COUNT 24.1 10^3/ul (4.8-10.8)
[2017-05-04] MEDS: PANTOPRAZOLE 40 MG INJ IV SCH ×2 (05:26→19:09)
[2017-05-04] MEDS: metroNIDAZOLE 500 MG TAB GTB SCH ×3 (05:26→23:20)
[2017-05-04] MEDS: INSULIN ASPART [NOVOLOG] 3 ML PEN SC SCH ×4 (05:35→23:36)
[2017-05-04] MEDS: LEVOTHYROXINE 75 MCG TAB GTB SCH (05:35)
[2017-05-04] MEDS: DEXTROSE 5% 1,000 ML IV SCH (05:36)
[2017-05-04 05:54] LABS: POSITIVE DIFF @See below
[2017-05-04 05:55] LABS: NEUTROPHILS % 93.7 % (39.0-77.0)
[2017-05-04 05:58] LABS: MAGNESIUM 2.2 mg/dl (1.7-2.5)
--- NOTE | 2017-05-04 07:43 | PN ---
Date/Time of Note Date/Time of Note DATE: 05/04/17 TIME: 07:37 Assessment/Plan VTE Prophylaxis VTE Prophylaxis Intervention: other Lines/Catheters IV Catheter Type (from Nrsg): PICC Line Central line still needed: Yes Urinary Cath still in place: Yes Reason Cath still needed: other (indicate) Assessment/Plan Chief Complaint/Hosp Course 1. Status post code arrest -Etiology secondary to sepsis, hypoxemic failure -Patient was coded 30 minutes with spontaneous return of circulation We will continue to monitor 2. Hypoxemic respiratory failure secondary to aspiration pneumonia, shock -Patient intubated -Patient status post emergent tracheostomy -ABG chest x-ray reviewed -We will follow-up with pulmonary, ENT consult placed with Dr. Carpio 2. nonoliguric Kenrick. With previously normal baseline creatinine. Etiology is likely secondary to septic KENRICK, ATN -Minimal urinary output despite diuretic challenge Renal function continues to decline Spoke with about initiating dialysis for volume removal and solute clearance We will start dialysis once a catheter was placed - 3. Hyperkalemia secondary to acute kidney injury acidemia Improved Continue to monitor 3. Sepsis status post shock Etiology secondary to aspiration pneumonia, fungemia Patient is on broad-spectrum antibiotics, antifungals, - Patient's blood cultures have been reviewed. - Continue current treatment plan Follow-up with infectious disease 4. Volume overload. Etiology likely secondary to sepsis capillary leak, diastolic heart failure. -Plan for dialysis and volume removal 6. History of adrenal insufficiency. -Patient currently on stress steroids, -Appreciate endocrinology evaluation 7. Acute encephalopathy etiologies toxic metabolic, possible anoxic injury. Mental status is improving, patient following commands CT scan showed no acute finding Appreciate Dr. Ellis evaluation -Continue to monitor closely 8. Hypernatremia Continue t D5 water Monitor 9. Hypothyroidism continue Synthroid 10. Anemia with GI bleed Status post EGD with cauterization of fundal bleed HEENT H&H levels have been stable continue to monitor Continue PPI Appreciate GIs help with management 11. Mineral bone disorder will monitor calcium phosphorus levels 12. h/o tongue cancer with resection 13. History of diastolic heart failure/coronary disease -Continue medical management 14. Leukocytosis. -Etiology is likely secondary sepsis, steroids. -Monitor - Follow-up with infectious disease. 15. Hypomagnesemia. Continue to monitor and replete as needed 16. Left upper extremity DVT. -Hold aspirin heparin setting of bleed 17. Dysphagia status post PEG Hold tube feedings at this time 18. Arrhythmia Status post amiodarone drip Follow-up with cardio 19. ?cholecystitis -Patient's HIDA scan was positive - cholecystostomy drain was not placed due to insufficient fluid. -No plan for drain placement at this time. I discussed case with general surgery Appreciate surgery's evaluation. 20. 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 Ellis's evaluation Continue supportive care I spent greater than 40 minutes of critical care time with this pt Problems: Subjective 24 Hr Interval Summary Free Text/Dictation Patient seen and examined Spoke with patient's at bedside informing him that dialysis was recommended given patient's poor urinary output and gross volume overload. Patient's understood and agreed to initiate and to start dialysis Exam/Review of Systems Vital Signs Vitals Vital Signs Date Time Temp Pulse Resp B/P Pulse Ox O2 Delivery O2 Flow Rate FiO2 05/04/17 07:00 99 24 121/80 100 Mechanical Ventilator 05/04/17 05:25 35 05/04/17 04:00 98.2 05/01/17 00:30 15.0 Intake and Output 05/03/17 05/03/17 05/04/17 15:00 23:00 07:00 Intake Total 945 ml 1510 ml 1237.5 ml Output Total 140 ml 100 ml 130 ml Balance 805 ml 1410 ml 1107.5 ml Exam HEENT: Head is normocephalic, NECK: Supple. HEART: Irregular LUNGS: Show diminished breath sounds at base. ABDOMEN: Soft, nontender to palpation without rebound or guarding. EXTREMITIES: Negative for clubbing, cyanosis. Positive edema/anasarca DERMATOLOGIC: No rashes. MUSCULOSKELETAL: No joint effusions, NEUROLOGIC: No change in exam. Results Result Diagram: 05/04/17 0434 05/04/17 0434 Results 24 hrs Laboratory Tests Test 05/03/17 12:23 05/03/17 17:53 05/03/17 23:24 05/04/17 04:34 Bedside Glucose 135 167 183 White Blood Count 24.1 #H Red Blood Count 3.27 L Hemoglobin 9.5 L Hematocrit 29.1 L Mean Corpuscular Volume 89.0 Mean Corpuscular Hemoglobin 29.1 Mean Corpuscular Hemoglobin Concent 32.6 Red Cell Distribution Width 22.2 H Platelet Count 120 L Mean Platelet Volume 13.0 H Neutrophils % 93.7 H Lymphocytes % 2.2 L Monocytes % 2.5 Eosinophils % 0.0 Basophils % 0.1 Nucleated Red Blood Cells % 0.1 H Neutrophils # 22.6 H Lymphocytes # 0.5 L Monocytes # 0.6 Eosinophils # 0.0 Basophils # 0.0 Nucleated Red Blood Cells # 0.0 Sodium Level 144 Potassium Level 4.0 Chloride Level 106 Carbon Dioxide Level 24 Anion Gap 18 H Blood Urea Nitrogen 83 H Creatinine 2.31 H Glucose Level 172 Calcium Level 8.4 Phosphorus Level 5.0 H Magnesium Level 2.2 Test 05/04/17 05:22 Bedside Glucose 181 Medications Medications Current Medications Aspirin (Aspirin) 325 mg DAILY NGT Last administered on 04/30/17 08:43; Admin Dose 325 MG; Start 04/12/17 at 09:00; Status Future Hold Metoprolol Tartrate (Lopressor) 5 mg Q4H PRN IV HR>110 Hold SBP<110 Last administered on 04/20/17 17:36; Admin Dose 5 MG; Start 04/11/17 at 13:30 Miscellaneous Information 1 ea NOTE XX ; Start 04/11/17 at 16:30 Glucose (Glutose) 15 gm Q15M PRN PO DECREASED GLUCOSE; Start 04/11/17 at 16:30 Glucose (Glutose) 22.5 gm Q15M PRN PO DECREASED GLUCOSE; Start 04/11/17 at 16: 30 Dextrose (D50w Syringe) 25 ml Q15M PRN IV DECREASED GLUCOSE Last administered on 04/12/17 23:56; Admin Dose 25 ML; Start 04/11/17 at 16:30 Dextrose (D50w Syringe) 50 ml Q15M PRN IV DECREASED GLUCOSE; Start 04/11/17 at 16:30 Glucagon (Glucagen) 1 mg Q15M PRN IM DECREASED GLUCOSE; Start 04/11/17 at 16:30 Glucose (Glutose) 15 gm Q15M PRN BUCCAL DECREASED GLUCOSE; Start 04/11/17 at 16 :30 Metoclopramide HCl (Reglan) 10 mg Q6 IV Last administered on 05/04/17 05:26; Admin Dose 10 MG; Start 04/12/17 at 18:00 Insulin Aspart (Novolog Insulin Pen) NOVOLOG *MILD* ALGORI... Q6H SC Last administered on 05/04/17 05:35; Admin Dose 2 UNIT; Start 04/15/17 at 00:00 IV Flush (NS 10 ml) 10 ml PRN PRN IV FLUSH LINE; Start 04/15/17 at 13:00 Amiodarone HCl (Cordarone) 200 mg BID GTB Last administered on 05/03/17 20:22 ; Admin Dose 200 MG; Start 04/16/17 at 13:00 Heparin Sodium (Porcine) (Heparin (5000 Units/0.5 ml)) 5,000 unit BID SC Last administered on 04/30/17 21:03; Admin Dose 5,000 UNIT; Start 04/18/17 at 16:22; Status Future Hold Citalopram Hydrobromide (Celexa) 20 mg DAILY NGT Last administered on 09:23; Admin Dose 20 MG; Start 04/19/17 at 09:00 Hydralazine HCl 20 mg 20 mg Q6H PRN IV sbp ABOVE 160 Last administered on 12:43; Admin Dose 20 MG; Start 04/18/17 at 18:30 Caspofungin/ Sodium Chloride (Cancidas/NS) 250 ml @ 250 mls/hr Q24H IV Last administered on 05/03/17 10:31; Admin Dose 250 MLS/HR; Start 04/21/17 at 10:00 Chlorhexidine Gluconate (Peridex) 15 ml BID MT Last administered on 05/03/17 20:21; Admin Dose 15 ML; Start 04/22/17 at 21:00 Vitamin A/Vitamin D (Vitamin A & D Oint) 1 applic TID TOP Last administered on 05/03/17 20:23; Admin Dose 1 APPLIC; Start 04/22/17 at 21:00 Vitamin A/Vitamin D (Vitamin A & D Oint) 1 applic TID PRN TOP DRYNESS Last administered on 04/22/17 15:29; Admin Dose 1 APPLIC; Start 04/22/17 at 15:00 Acetaminophen/ Hydrocodone Bitart ([place] (5/325)) 1 tab Q6H GTB Last administered on 05/04/17 03:40; Admin Dose 1 TAB; Start 04/22/17 at 21:30 Spironolactone (Aldactone) 25 mg DAILY NGT Last administered on 04/30/17 08:43 ; Admin Dose 25 MG; Start 04/25/17 at 19:00; Status Future Hold Diltiazem HCl 5 mg 5 mg Q1H PRN IV HEART RATE GREATER THAN 120 Last administered on 04/29/17 06:17; Admin Dose 5 MG; Start 04/29/17 at 05:00 Meropenem/Sodium Chloride (Merrem 500mg/50 ml(Pmx)) 50 ml @ 200 mls/hr Q12 IVPB Last administered on 05/03/17 20:52; Admin Dose 200 MLS/HR; Start at 12:00 Metoprolol Tartrate (Lopressor) 25 mg BID GTB Last administered on 04/30/17 21 :01; Admin Dose 25 MG; Start 04/30/17 at 21:00; Status Future hold Valacyclovir HCl (Valtrex) 500 mg BID GTB Last administered on 05/03/17 20:22 ; Admin Dose 500 MG; Start 04/30/17 at 21:00 Metronidazole 500 mg 500 mg Q8 GTB Last administered on 05/04/17 05:26; Admin Dose 500 MG; Start 04/30/17 at 22:00 Dopamine HCl/ Dextrose 250 ml @ 4.875 mls/ hr TITRATE IV Last administered on 05/01/17 07:07; Admin Dose 48.75 MLS/HR; Start 05/01/17 at 02:30 Vasopressin/ Dextrose (Vasostrict/D5W) 60 ml @ 1.2 mls/hr Q12H IV Last administered on 05/01/17 02:48; Admin Dose 1.2 MLS/HR; Start 05/01/17 at 02:30 Hydrocortisone 100 mg 100 mg TID IV Last administered on 05/03/17 20:21; Admin Dose 100 MG; Start 05/01/17 at 09:00 Sodium Chloride 1,000 ml @ 0 mls/hr Q0M IV Last administered on 05/01/17 03: 00; Admin Dose 1,000 MLS/HR; Start 05/01/17 at 03:00 Sodium Chloride 1,000 ml @ 0 mls/hr Q0M IV Last administered on 05/01/17 04: 00; Admin Dose 1,000 MLS/HR; Start 05/01/17 at 03:30 Norepinephrine 16 mg/Dextrose 500 ml @ 1.87 mls/hr TITRATE IV Last administered on 05/01/17 10:13; Admin Dose 18.75 MLS/HR; Start 05/01/17 at 08: 00 Dextrose (D5W) 1,000 ml @ 75 mls/hr [id number] IV Last administered on 05/04/17 05:36; Admin Dose 75 MLS/HR; Start 05/02/17 at 07:30 Pantoprazole 40 mg 40 mg BID@06,18 IV Last administered on 05/04/17 05:26; Admin Dose 40 MG; Start 05/02/17 at 15:00 Diltiazem HCl (Cardizem-D5W 125 Mg/125 ml Drip) 125 ml @ 5 mls/hr TITRATE IV Last administered on 05/02/17 19:11; Admin Dose 5 MLS/HR; Start 05/02/17 at 19: 00 Furosemide (Lasix) 80 mg Q12 IV Last administered on 05/03/17 21:26; Admin Dose 80 MG; Start 05/03/17 at 09:00 NINA MACIEL DO May 04, 2017 07:43
[2017-05-04] MEDS: METOPROLOL 25 MG TAB GTB SCH ×2 (09:21→23:20)
[2017-05-04] MEDS: FUROSEMIDE 40 MG INJ IV SCH ×2 (09:22→20:14)
[2017-05-04] MEDS: VITAMIN A & D 5 GM OINT PACKET TOP SCH ×3 (09:22→20:13)
[2017-05-04] MEDS: HYDROCORTISONE 100 MG INJ IV SCH ×3 (09:22→20:13)
[2017-05-04] MEDS: VALACYCLOVIR 500 MG TAB GTB SCH ×2 (09:22→20:13)
[2017-05-04] MEDS: AMIODARONE 200 MG TAB GTB SCH ×2 (09:22→23:21)
[2017-05-04] MEDS: MEROPENEM 500MG/50 ML (PMX) 50 ML IVPB SCH ×2 (09:22→20:29)
[2017-05-04] MEDS: CHLORHEXIDINE GLUCONATE 15 ML UD CUP MT SCH ×2 (09:22→20:13)
[2017-05-04] MEDS: CITALOPRAM 20 MG TAB NGT SCH (09:22)
[2017-05-04] MEDS: CASPOFUNGIN 50 MG in NS 250 ML IV SCH (10:39)
--- NOTE | 2017-05-04 11:08 | CONS ---
Date/Time of Note Date/Time of Note DATE: 05/04/17 TIME: 11:05 Assessment/Plan Assessment/Plan Additional Assessment/Plan Ventilator setting; AC of 24, pressure control mode of ventilation. PEEP of 5, 35% FiO2. Next Assessment recommendations; 1. Patient admitted for recurrent respiratory failure with bilateral pneumonia and sepsis, clinically improved. 2. 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 3. Anemia. 4. Thrombocytopenia. 5. History of hypertension and hypo-thyroidism. 6. Generalized edema with renal insufficiency, patient awaiting hemodialysis. Continue current treatment. Switch the patient to volume control mode of ventilation. Prognosis is guarded. I did have a detailed discussion with the patient's at bedside and answered all his questions. Consultation Date/Type/Reason Admit Date/Time Apr 11, 2017 at 11:28 Initial Consult Date 05/01/17 Type of Consultation: Pulmonary/critical care Referring Provider: NINA MACIEL DO 24 HR Interval Summary Free Text/Dictation Patient condition remains stable. Remains awake and alert. Has remained hemodynamically stable. General exam; elderly woman, on ventilator via tracheostomy, awake and alert. Currently in no distress. Exam/Review of Systems Vital Signs Vitals Vital Signs Date Time Temp Pulse Resp B/P Pulse Ox O2 Delivery O2 Flow Rate FiO2 05/04/17 10:00 97 24 117/84 99 Mechanical Ventilator 05/04/17 08:53 35 05/04/17 08:00 98.3 05/01/17 00:30 15.0 Intake and Output 05/03/17 05/03/17 05/04/17 15:00 23:00 07:00 Intake Total 945 ml 1510 ml 1342.5 ml Output Total 140 ml 100 ml 140 ml Balance 805 ml 1410 ml 1202.5 ml Exam HEENT exam; supple neck, no JVD. No lymphadenopathy. Midline trachea. No thyromegaly. Patient has fair dentition. There is very mild gingival bleeding , tracheostomy in place. Insertion site is clean. Chest exam; diminished but clear breath sounds S1-S2 audible, no murmurs. Regular rhythm. Abdomen exam; soft, G-tube in place. Nontender. Bowel sounds audible. Extremity exam; 2+ generalized edema. Patient has a multiple ecchymosis involving all 4 extremities. 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 Results Result Diagram: 05/04/17 0434 05/03/17 0440 Results 24 hrs Laboratory Tests Test 05/03/17 12:23 05/03/17 17:53 05/03/17 23:24 05/04/17 04:34 Bedside Glucose 135 167 183 White Blood Count 24.1 #H Red Blood Count 3.27 L Hemoglobin 9.5 L Hematocrit 29.1 L Mean Corpuscular Volume 89.0 Mean Corpuscular Hemoglobin 29.1 Mean Corpuscular Hemoglobin Concent 32.6 Red Cell Distribution Width 22.2 H Platelet Count 120 L Mean Platelet Volume 13.0 H Neutrophils % 93.7 H Lymphocytes % 2.2 L Monocytes % 2.5 Eosinophils % 0.0 Basophils % 0.1 Nucleated Red Blood Cells % 0.1 H Neutrophils # 22.6 H Lymphocytes # 0.5 L Monocytes # 0.6 Eosinophils # 0.0 Basophils # 0.0 Nucleated Red Blood Cells # 0.0 Phosphorus Level 5.0 H Magnesium Level 2.2 Test 05/04/17 05:22 Bedside Glucose 181 Medications Medications Current Medications Aspirin (Aspirin) 325 mg DAILY NGT Last administered on 04/30/17 08:43; Admin Dose 325 MG; Start 04/12/17 at 09:00; Status Future Hold Metoprolol Tartrate (Lopressor) 5 mg Q4H PRN IV HR>110 Hold SBP<110 Last administered on 04/20/17 17:36; Admin Dose 5 MG; Start 04/11/17 at 13:30 Miscellaneous Information 1 ea NOTE XX ; Start 04/11/17 at 16:30 Glucose (Glutose) 15 gm Q15M PRN PO DECREASED GLUCOSE; Start 04/11/17 at 16:30 Glucose (Glutose) 22.5 gm Q15M PRN PO DECREASED GLUCOSE; Start 04/11/17 at 16: 30 Dextrose (D50w Syringe) 25 ml Q15M PRN IV DECREASED GLUCOSE Last administered on 04/12/17 23:56; Admin Dose 25 ML; Start 04/11/17 at 16:30 Dextrose (D50w Syringe) 50 ml Q15M PRN IV DECREASED GLUCOSE; Start 04/11/17 at 16:30 Glucagon (Glucagen) 1 mg Q15M PRN IM DECREASED GLUCOSE; Start 04/11/17 at 16:30 Glucose (Glutose) 15 gm Q15M PRN BUCCAL DECREASED GLUCOSE; Start 04/11/17 at 16 :30 Metoclopramide HCl (Reglan) 10 mg Q6 IV Last administered on 05/04/17 05:26; Admin Dose 10 MG; Start 04/12/17 at 18:00 Insulin Aspart (Novolog Insulin Pen) NOVOLOG *MILD* ALGORI... Q6H SC Last administered on 05/04/17 05:35; Admin Dose 2 UNIT; Start 04/15/17 at 00:00 IV Flush (NS 10 ml) 10 ml PRN PRN IV FLUSH LINE; Start 04/15/17 at 13:00 Amiodarone HCl (Cordarone) 200 mg BID GTB Last administered on 05/04/17 09:22 ; Admin Dose 200 MG; Start 04/16/17 at 13:00 Heparin Sodium (Porcine) (Heparin (5000 Units/0.5 ml)) 5,000 unit BID SC Last administered on 04/30/17 21:03; Admin Dose 5,000 UNIT; Start 04/18/17 at 16:22; Status Future Hold Citalopram Hydrobromide (Celexa) 20 mg DAILY NGT Last administered on 09:22; Admin Dose 20 MG; Start 04/19/17 at 09:00 Hydralazine HCl 20 mg 20 mg Q6H PRN IV sbp ABOVE 160 Last administered on 12:43; Admin Dose 20 MG; Start 04/18/17 at 18:30 Caspofungin/ Sodium Chloride (Cancidas/NS) 250 ml @ 250 mls/hr Q24H IV Last administered on 05/04/17 10:39; Admin Dose 250 MLS/HR; Start 04/21/17 at 10:00 Chlorhexidine Gluconate (Peridex) 15 ml BID MT Last administered on 05/04/17 09:22; Admin Dose 15 ML; Start 04/22/17 at 21:00 Vitamin A/Vitamin D (Vitamin A & D Oint) 1 applic TID TOP Last administered on 05/04/17 09:22; Admin Dose 1 APPLIC; Start 04/22/17 at 21:00 Vitamin A/Vitamin D (Vitamin A & D Oint) 1 applic TID PRN TOP DRYNESS Last administered on 04/22/17 15:29; Admin Dose 1 APPLIC; Start 04/22/17 at 15:00 Acetaminophen/ Hydrocodone Bitart ([place] (5/325)) 1 tab Q6H GTB Last administered on 05/04/17 09:21; Admin Dose 1 TAB; Start 04/22/17 at 21:30 Spironolactone (Aldactone) 25 mg DAILY NGT Last administered on 04/30/17 08:43 ; Admin Dose 25 MG; Start 04/25/17 at 19:00; Status Future Hold Diltiazem HCl 5 mg 5 mg Q1H PRN IV HEART RATE GREATER THAN 120 Last administered on 04/29/17 06:17; Admin Dose 5 MG; Start 04/29/17 at 05:00 Meropenem/Sodium Chloride (Merrem 500mg/50 ml(Pmx)) 50 ml @ 200 mls/hr Q12 IVPB Last administered on 05/04/17 09:22; Admin Dose 200 MLS/HR; Start at 12:00 Metoprolol Tartrate (Lopressor) 25 mg BID GTB Last administered on 05/04/17 09 :21; Admin Dose 25 MG; Start 04/30/17 at 21:00; Status Future hold Valacyclovir HCl (Valtrex) 500 mg BID GTB Last administered on 05/04/17 09:22 ; Admin Dose 500 MG; Start 04/30/17 at 21:00 Metronidazole 500 mg 500 mg Q8 GTB Last administered on 05/04/17 05:26; Admin Dose 500 MG; Start 04/30/17 at 22:00 Dopamine HCl/ Dextrose 250 ml @ 4.875 mls/ hr TITRATE IV Last administered on 05/01/17 07:07; Admin Dose 48.75 MLS/HR; Start 05/01/17 at 02:30 Vasopressin/ Dextrose (Vasostrict/D5W) 60 ml @ 1.2 mls/hr Q12H IV Last administered on 05/01/17 02:48; Admin Dose 1.2 MLS/HR; Start 05/01/17 at 02:30 Hydrocortisone 100 mg 100 mg TID IV Last administered on 05/04/17 09:22; Admin Dose 100 MG; Start 05/01/17 at 09:00 Sodium Chloride 1,000 ml @ 0 mls/hr Q0M IV Last administered on 05/01/17 03: 00; Admin Dose 1,000 MLS/HR; Start 05/01/17 at 03:00 Sodium Chloride 1,000 ml @ 0 mls/hr Q0M IV Last administered on 05/01/17 04: 00; Admin Dose 1,000 MLS/HR; Start 05/01/17 at 03:30 Norepinephrine 16 mg/Dextrose 500 ml @ 1.87 mls/hr TITRATE IV Last administered on 05/01/17 10:13; Admin Dose 18.75 MLS/HR; Start 05/01/17 at 08: 00 Dextrose (D5W) 1,000 ml @ 75 mls/hr [id number] IV Last administered on 05/04/17 05:36; Admin Dose 75 MLS/HR; Start 05/02/17 at 07:30 Pantoprazole 40 mg 40 mg BID@06,18 IV Last administered on 05/04/17 05:26; Admin Dose 40 MG; Start 05/02/17 at 15:00 Diltiazem HCl (Cardizem-D5W 125 Mg/125 ml Drip) 125 ml @ 5 mls/hr TITRATE IV Last administered on 05/02/17 19:11; Admin Dose 5 MLS/HR; Start 05/02/17 at 19: 00 Furosemide (Lasix) 80 mg Q12 IV Last administered on 05/04/17 09:22; Admin Dose 80 MG; Start 05/03/17 at 09:00 EMILIANO HICKS May 04, 2017 11:08
--- NOTE | 2017-05-04 13:02 | CONS ---
Date/Time of Note Date/Time of Note DATE: 05/04/17 TIME: 13:00 Assessment/Plan Assessment/Plan Chief Complaint/Hosp Course No acute changes patient is very weak hypothermic she is on blanket warmer and in no distress temperature now 98 3 pulse 96 respirations 24 blood pressure 126/97 saturation 100 on 55 FiO2 WBC 24.1 H&H 9.5 and 29.1 platelets 120 neutrophils 92.7 Microbiology: Blood and urine cultures since April 30 remain negative Indwelling's: Trach, PEG, PICC line, Latif Antimicrobials: Flagyl Valtrex meropenem Cancidas Physical examination: Chronically ill-appearing elderly woman who is lying comfortably in bed. Head atraumatic, normocephalic sclera nonicteric bugle mucosa dry patient has wounds on her upper and lower lips neck is supple tracheostomy present chest rise symmetrical breath sounds with bilateral scattered crackles. Heart: S1-S2, tachycardic Abdomen soft bowel tones hypoactive. Extremities with bilateral edema. Skin pale with severe anasarca. Assessment: 1. Sepsis, s/p shock, off pressors, started on Solu-Cortef 2. Acute on chronic respiratory failure, possible recurrent aspiration 3. Leukocytosis, combination of sepsis and steroids induced 4. S/p fungemia with repeat blood cultures being negative 5. Status post rapid atrial fibrillation 6. Acute on chronic anemia secondary to AVM ==> stopped, status post EGD on May 02 with injection of epinephrine 7. Acute on chronic renal failure Plan: Hemodynamically stable, continue present care, antibiotics, steroids taper , plan for HD Discussed with staff discussed with at bedside Problems: Consultation Date/Type/Reason Admit Date/Time Apr 11, 2017 at 11:28 Initial Consult Date 04/12/17 Type of Consultation: id Referring Provider: NINA MACIEL DO Exam/Review of Systems Vital Signs Vitals Vital Signs Date Time Temp Pulse Resp B/P Pulse Ox O2 Delivery O2 Flow Rate FiO2 05/04/17 11:20 84 24 100 35 05/04/17 11:00 132/81 Mechanical Ventilator 05/04/17 08:00 98.3 05/01/17 00:30 15.0 Intake and Output 05/03/17 05/03/17 05/04/17 15:00 23:00 07:00 Intake Total 945 ml 1510 ml 1342.5 ml Output Total 140 ml 100 ml 140 ml Balance 805 ml 1410 ml 1202.5 ml Results Result Diagram: 05/04/17 0434 05/03/17 0440 Results 24 hrs Laboratory Tests Test 05/03/17 17:53 05/03/17 23:24 05/04/17 04:34 05/04/17 05:22 Bedside Glucose 167 183 181 White Blood Count 24.1 #H Red Blood Count 3.27 L Hemoglobin 9.5 L Hematocrit 29.1 L Mean Corpuscular Volume 89.0 Mean Corpuscular Hemoglobin 29.1 Mean Corpuscular Hemoglobin Concent 32.6 Red Cell Distribution Width 22.2 H Platelet Count 120 L Mean Platelet Volume 13.0 H Neutrophils % 93.7 H Lymphocytes % 2.2 L Monocytes % 2.5 Eosinophils % 0.0 Basophils % 0.1 Nucleated Red Blood Cells % 0.1 H Neutrophils # 22.6 H Lymphocytes # 0.5 L Monocytes # 0.6 Eosinophils # 0.0 Basophils # 0.0 Nucleated Red Blood Cells # 0.0 Phosphorus Level 5.0 H Magnesium Level 2.2 Test 05/04/17 12:43 Bedside Glucose 196 Medications Medications Current Medications Aspirin (Aspirin) 325 mg DAILY NGT Last administered on 04/30/17 08:43; Admin Dose 325 MG; Start 04/12/17 at 09:00; Status Future Hold Metoprolol Tartrate (Lopressor) 5 mg Q4H PRN IV HR>110 Hold SBP<110 Last administered on 04/20/17 17:36; Admin Dose 5 MG; Start 04/11/17 at 13:30 Miscellaneous Information 1 ea NOTE XX ; Start 04/11/17 at 16:30 Glucose (Glutose) 15 gm Q15M PRN PO DECREASED GLUCOSE; Start 04/11/17 at 16:30 Glucose (Glutose) 22.5 gm Q15M PRN PO DECREASED GLUCOSE; Start 04/11/17 at 16: 30 Dextrose (D50w Syringe) 25 ml Q15M PRN IV DECREASED GLUCOSE Last administered on 04/12/17 23:56; Admin Dose 25 ML; Start 04/11/17 at 16:30 Dextrose (D50w Syringe) 50 ml Q15M PRN IV DECREASED GLUCOSE; Start 04/11/17 at 16:30 Glucagon (Glucagen) 1 mg Q15M PRN IM DECREASED GLUCOSE; Start 04/11/17 at 16:30 Glucose (Glutose) 15 gm Q15M PRN BUCCAL DECREASED GLUCOSE; Start 04/11/17 at 16 :30 Metoclopramide HCl (Reglan) 10 mg Q6 IV Last administered on 05/04/17 12:44; Admin Dose 10 MG; Start 04/12/17 at 18:00 Insulin Aspart (Novolog Insulin Pen) NOVOLOG *MILD* ALGORI... Q6H SC Last administered on 05/04/17 05:35; Admin Dose 2 UNIT; Start 04/15/17 at 00:00 IV Flush (NS 10 ml) 10 ml PRN PRN IV FLUSH LINE; Start 04/15/17 at 13:00 Amiodarone HCl (Cordarone) 200 mg BID GTB Last administered on 05/04/17 09:22 ; Admin Dose 200 MG; Start 04/16/17 at 13:00 Heparin Sodium (Porcine) (Heparin (5000 Units/0.5 ml)) 5,000 unit BID SC Last administered on 04/30/17 21:03; Admin Dose 5,000 UNIT; Start 04/18/17 at 16:22; Status Future Hold Citalopram Hydrobromide (Celexa) 20 mg DAILY NGT Last administered on 09:22; Admin Dose 20 MG; Start 04/19/17 at 09:00 Hydralazine HCl 20 mg 20 mg Q6H PRN IV sbp ABOVE 160 Last administered on 12:43; Admin Dose 20 MG; Start 04/18/17 at 18:30 Caspofungin/ Sodium Chloride (Cancidas/NS) 250 ml @ 250 mls/hr Q24H IV Last administered on 05/04/17 10:39; Admin Dose 250 MLS/HR; Start 04/21/17 at 10:00 Chlorhexidine Gluconate (Peridex) 15 ml BID MT Last administered on 05/04/17 09:22; Admin Dose 15 ML; Start 04/22/17 at 21:00 Vitamin A/Vitamin D (Vitamin A & D Oint) 1 applic TID TOP Last administered on 05/04/17 12:44; Admin Dose 1 APPLIC; Start 04/22/17 at 21:00 Vitamin A/Vitamin D (Vitamin A & D Oint) 1 applic TID PRN TOP DRYNESS Last administered on 04/22/17 15:29; Admin Dose 1 APPLIC; Start 04/22/17 at 15:00 Acetaminophen/ Hydrocodone Bitart ([place] (5/325)) 1 tab Q6H GTB Last administered on 05/04/17 09:21; Admin Dose 1 TAB; Start 04/22/17 at 21:30 Spironolactone (Aldactone) 25 mg DAILY NGT Last administered on 04/30/17 08:43 ; Admin Dose 25 MG; Start 04/25/17 at 19:00; Status Future Hold Diltiazem HCl 5 mg 5 mg Q1H PRN IV HEART RATE GREATER THAN 120 Last administered on 04/29/17 06:17; Admin Dose 5 MG; Start 04/29/17 at 05:00 Meropenem/Sodium Chloride (Merrem 500mg/50 ml(Pmx)) 50 ml @ 200 mls/hr Q12 IVPB Last administered on 05/04/17 09:22; Admin Dose 200 MLS/HR; Start at 12:00 Metoprolol Tartrate (Lopressor) 25 mg BID GTB Last administered on 05/04/17 09 :21; Admin Dose 25 MG; Start 04/30/17 at 21:00; Status Future hold Valacyclovir HCl (Valtrex) 500 mg BID GTB Last administered on 05/04/17 09:22 ; Admin Dose 500 MG; Start 04/30/17 at 21:00 Metronidazole 500 mg 500 mg Q8 GTB Last administered on 05/04/17 05:26; Admin Dose 500 MG; Start 04/30/17 at 22:00 Dopamine HCl/ Dextrose 250 ml @ 4.875 mls/ hr TITRATE IV Last administered on 05/01/17 07:07; Admin Dose 48.75 MLS/HR; Start 05/01/17 at 02:30 Vasopressin/ Dextrose (Vasostrict/D5W) 60 ml @ 1.2 mls/hr Q12H IV Last administered on 05/01/17 02:48; Admin Dose 1.2 MLS/HR; Start 05/01/17 at 02:30 Hydrocortisone 100 mg 100 mg TID IV Last administered on 05/04/17 12:44; Admin Dose 100 MG; Start 05/01/17 at 09:00 Sodium Chloride 1,000 ml @ 0 mls/hr Q0M IV Last administered on 05/01/17 03: 00; Admin Dose 1,000 MLS/HR; Start 05/01/17 at 03:00 Sodium Chloride 1,000 ml @ 0 mls/hr Q0M IV Last administered on 05/01/17 04: 00; Admin Dose 1,000 MLS/HR; Start 05/01/17 at 03:30 Norepinephrine 16 mg/Dextrose 500 ml @ 1.87 mls/hr TITRATE IV Last administered on 05/01/17 10:13; Admin Dose 18.75 MLS/HR; Start 05/01/17 at 08: 00 Dextrose (D5W) 1,000 ml @ 75 mls/hr [id number] IV Last administered on 05/04/17 05:36; Admin Dose 75 MLS/HR; Start 05/02/17 at 07:30 Pantoprazole 40 mg 40 mg BID@06,18 IV Last administered on 05/04/17 05:26; Admin Dose 40 MG; Start 05/02/17 at 15:00 Diltiazem HCl (Cardizem-D5W 125 Mg/125 ml Drip) 125 ml @ 5 mls/hr TITRATE IV Last administered on 05/02/17 19:11; Admin Dose 5 MLS/HR; Start 05/02/17 at 19: 00 Furosemide (Lasix) 80 mg Q12 IV Last administered on 05/04/17 09:22; Admin Dose 80 MG; Start 05/03/17 at 09:00 LORETO MCKEON NP May 04, 2017 13:02
--- NOTE | 2017-05-04 13:29 | CONS ---
Date/Time of Note Date/Time of Note DATE: 05/04/17 TIME: 13:28 Assessment/Plan Assessment/Plan Chief Complaint/Hosp Course Patient is a 66 year old female with a history of diabetes mellitus hypertension chronic vent dependency, history of tongue cancer status post resection has a G-tube. GI consult was called in for GI bleeding anemia requiring blood transfusion. Her other problems include aspiration pneumonia, atrial fibrillation well controlled. Patient also had a sepsis and fungemia successfully treated. Her G-tube aspirate shows burgundy colored fluid. Patient is off all the pressor support. She is on a steroid for adrenal insufficiency Problems: Additional Assessment/Plan Additional Assessment/Plan #1 GI bleeding manifested in the form of hematemesis and large burgundy color aspirate through G-tube, successful hemostasis achieved. No further bleeding 2. Vent dependent respiratory failure 3. Atrial fibrillation 4. Diabetes mellitus 5. Hypertension 6. Status post septic shock 7. Anemia 8. Prerenal azotemia 9. Status post cardiac arrest in the past Plan Transfuse 2 units of packed cell RBC bring hemoglobin greater than 7.5 We will proceed with EGD and perform therapeutic endoscopy Continue with PPI Refrain from all kind of blood thinner. Consultation Date/Type/Reason Admit Date/Time Apr 11, 2017 at 11:28 Initial Consult Date 05/01/17 Type of Consultation: id Referring Provider: NINA MACIEL DO 24 HR Interval Summary Constitutional: improved Exam/Review of Systems Vital Signs Vitals Vital Signs Date Time Temp Pulse Resp B/P Pulse Ox O2 Delivery O2 Flow Rate FiO2 05/04/17 13:16 83 24 100 35 05/04/17 13:00 129/74 Mechanical Ventilator 05/04/17 12:00 97.8 05/01/17 00:30 15.0 Intake and Output 05/03/17 05/03/17 05/04/17 15:00 23:00 07:00 Intake Total 945 ml 1510 ml 1342.5 ml Output Total 140 ml 100 ml 140 ml Balance 805 ml 1410 ml 1202.5 ml Exam Constitutional: alert, oriented, well developed Psych: nl mood/affect, no complaints Head: atraumatic, normocephalic Eyes: EOMI, PERRL, nl conjunctiva, nl lids, nl sclera ENMT: nl external ears & nose, nl lips & teeth, nl nasal mucosa & septum Neck: non-tender, supple Respiratory: clear to auscultation, normal air movement Cardiovascular: nl pulses, regular rate and rhythm Gastrointestinal: nl liver, spleen, non-tender, soft Musculoskeletal: nl extremities to inspection, nl gait and stance Extremities: normal pulses Neurological: TRAINING ENGINEER II-XII intact, nl mental status, nl speech, nl strength Skin: nl turgor, No rash or lesions Lymph: nl lymph nodes Results Result Diagram: 05/04/17 0434 05/03/17 0440 Results 24 hrs Laboratory Tests Test 05/03/17 17:53 05/03/17 23:24 05/04/17 04:34 05/04/17 05:22 Bedside Glucose 167 183 181 White Blood Count 24.1 #H Red Blood Count 3.27 L Hemoglobin 9.5 L Hematocrit 29.1 L Mean Corpuscular Volume 89.0 Mean Corpuscular Hemoglobin 29.1 Mean Corpuscular Hemoglobin Concent 32.6 Red Cell Distribution Width 22.2 H Platelet Count 120 L Mean Platelet Volume 13.0 H Neutrophils % 93.7 H Lymphocytes % 2.2 L Monocytes % 2.5 Eosinophils % 0.0 Basophils % 0.1 Nucleated Red Blood Cells % 0.1 H Neutrophils # 22.6 H Lymphocytes # 0.5 L Monocytes # 0.6 Eosinophils # 0.0 Basophils # 0.0 Nucleated Red Blood Cells # 0.0 Phosphorus Level 5.0 H Magnesium Level 2.2 Test 05/04/17 12:43 Bedside Glucose 196 Medications Medications Current Medications Aspirin (Aspirin) 325 mg DAILY NGT Last administered on 04/30/17 08:43; Admin Dose 325 MG; Start 04/12/17 at 09:00; Status Future Hold Metoprolol Tartrate (Lopressor) 5 mg Q4H PRN IV HR>110 Hold SBP<110 Last administered on 04/20/17 17:36; Admin Dose 5 MG; Start 04/11/17 at 13:30 Miscellaneous Information 1 ea NOTE XX ; Start 04/11/17 at 16:30 Glucose (Glutose) 15 gm Q15M PRN PO DECREASED GLUCOSE; Start 04/11/17 at 16:30 Glucose (Glutose) 22.5 gm Q15M PRN PO DECREASED GLUCOSE; Start 04/11/17 at 16: 30 Dextrose (D50w Syringe) 25 ml Q15M PRN IV DECREASED GLUCOSE Last administered on 04/12/17 23:56; Admin Dose 25 ML; Start 04/11/17 at 16:30 Dextrose (D50w Syringe) 50 ml Q15M PRN IV DECREASED GLUCOSE; Start 04/11/17 at 16:30 Glucagon (Glucagen) 1 mg Q15M PRN IM DECREASED GLUCOSE; Start 04/11/17 at 16:30 Glucose (Glutose) 15 gm Q15M PRN BUCCAL DECREASED GLUCOSE; Start 04/11/17 at 16 :30 Metoclopramide HCl (Reglan) 10 mg Q6 IV Last administered on 05/04/17 12:44; Admin Dose 10 MG; Start 04/12/17 at 18:00 Insulin Aspart (Novolog Insulin Pen) NOVOLOG *MILD* ALGORI... Q6H SC Last administered on 05/04/17 05:35; Admin Dose 2 UNIT; Start 04/15/17 at 00:00 IV Flush (NS 10 ml) 10 ml PRN PRN IV FLUSH LINE; Start 04/15/17 at 13:00 Amiodarone HCl (Cordarone) 200 mg BID GTB Last administered on 05/04/17 09:22 ; Admin Dose 200 MG; Start 04/16/17 at 13:00 Heparin Sodium (Porcine) (Heparin (5000 Units/0.5 ml)) 5,000 unit BID SC Last administered on 04/30/17 21:03; Admin Dose 5,000 UNIT; Start 04/18/17 at 16:22; Status Future Hold Citalopram Hydrobromide (Celexa) 20 mg DAILY NGT Last administered on 09:22; Admin Dose 20 MG; Start 04/19/17 at 09:00 Hydralazine HCl 20 mg 20 mg Q6H PRN IV sbp ABOVE 160 Last administered on 12:43; Admin Dose 20 MG; Start 04/18/17 at 18:30 Caspofungin/ Sodium Chloride (Cancidas/NS) 250 ml @ 250 mls/hr Q24H IV Last administered on 05/04/17 10:39; Admin Dose 250 MLS/HR; Start 04/21/17 at 10:00 Chlorhexidine Gluconate (Peridex) 15 ml BID MT Last administered on 05/04/17 09:22; Admin Dose 15 ML; Start 04/22/17 at 21:00 Vitamin A/Vitamin D (Vitamin A & D Oint) 1 applic TID TOP Last administered on 05/04/17 12:44; Admin Dose 1 APPLIC; Start 04/22/17 at 21:00 Vitamin A/Vitamin D (Vitamin A & D Oint) 1 applic TID PRN TOP DRYNESS Last administered on 04/22/17 15:29; Admin Dose 1 APPLIC; Start 04/22/17 at 15:00 Acetaminophen/ Hydrocodone Bitart ([place] (5/325)) 1 tab Q6H GTB Last administered on 05/04/17 09:21; Admin Dose 1 TAB; Start 04/22/17 at 21:30 Spironolactone (Aldactone) 25 mg DAILY NGT Last administered on 04/30/17 08:43 ; Admin Dose 25 MG; Start 04/25/17 at 19:00; Status Future Hold Diltiazem HCl 5 mg 5 mg Q1H PRN IV HEART RATE GREATER THAN 120 Last administered on 04/29/17 06:17; Admin Dose 5 MG; Start 04/29/17 at 05:00 Meropenem/Sodium Chloride (Merrem 500mg/50 ml(Pmx)) 50 ml @ 200 mls/hr Q12 IVPB Last administered on 05/04/17 09:22; Admin Dose 200 MLS/HR; Start at 12:00 Metoprolol Tartrate (Lopressor) 25 mg BID GTB Last administered on 05/04/17 09 :21; Admin Dose 25 MG; Start 04/30/17 at 21:00; Status Future hold Valacyclovir HCl (Valtrex) 500 mg BID GTB Last administered on 05/04/17 09:22 ; Admin Dose 500 MG; Start 04/30/17 at 21:00 Metronidazole 500 mg 500 mg Q8 GTB Last administered on 05/04/17 05:26; Admin Dose 500 MG; Start 04/30/17 at 22:00 Dopamine HCl/ Dextrose 250 ml @ 4.875 mls/ hr TITRATE IV Last administered on 05/01/17 07:07; Admin Dose 48.75 MLS/HR; Start 05/01/17 at 02:30 Vasopressin/ Dextrose (Vasostrict/D5W) 60 ml @ 1.2 mls/hr Q12H IV Last administered on 05/01/17 02:48; Admin Dose 1.2 MLS/HR; Start 05/01/17 at 02:30 Hydrocortisone 100 mg 100 mg TID IV Last administered on 05/04/17 12:44; Admin Dose 100 MG; Start 05/01/17 at 09:00 Sodium Chloride 1,000 ml @ 0 mls/hr Q0M IV Last administered on 05/01/17 03: 00; Admin Dose 1,000 MLS/HR; Start 05/01/17 at 03:00 Sodium Chloride 1,000 ml @ 0 mls/hr Q0M IV Last administered on 05/01/17 04: 00; Admin Dose 1,000 MLS/HR; Start 05/01/17 at 03:30 Norepinephrine/ Dextrose (Levophed/D5W) 500 ml @ 1.87 mls/hr TITRATE IV Last administered on 05/01/17 10:13; Admin Dose 18.75 MLS/HR; Start 05/01/17 at 08: 00 Pantoprazole 40 mg 40 mg BID@06,18 IV Last administered on 05/04/17 05:26; Admin Dose 40 MG; Start 05/02/17 at 15:00 Diltiazem HCl (Cardizem-D5W 125 Mg/125 ml Drip) 125 ml @ 5 mls/hr TITRATE IV Last administered on 05/02/17 19:11; Admin Dose 5 MLS/HR; Start 05/02/17 at 19: 00 Furosemide (Lasix) 80 mg Q12 IV Last administered on 05/04/17 09:22; Admin Dose 80 MG; Start 05/03/17 at 09:00 ALYSSA THOMPSON MD May 04, 2017 13:29
--- NOTE | 2017-05-04 15:38 | CONS ---
Date/Time of Note Date/Time of Note DATE: 05/04/17 TIME: 15:26 Assessment/Plan Assessment/Plan Problems: (1) Steroid dependence Status: Chronic Comment: On stress dose steroids. Will re-attempt slow taper. Additional Assessment/Plan Status post cardiopulmonary event on 05/01. Reintubated and stress dose steroids resumed. Consultation Date/Type/Reason Admit Date/Time Apr 11, 2017 at 11:28 Initial Consult Date 05/01/17 Type of Consultation: endocrine Referring Provider: NINA MACIEL DO 24 HR Interval Summary Free Text/Dictation Patient asleep. Family at bedside. Subjective hx not possible: pt critical Constitutional: other (on ventilator support) Exam/Review of Systems Vital Signs Vitals Vital Signs Date Time Temp Pulse Resp B/P Pulse Ox O2 Delivery O2 Flow Rate FiO2 05/04/17 14:00 85 24 132/81 100 Mechanical Ventilator 05/04/17 13:16 35 05/04/17 12:00 97.8 05/01/17 00:30 15.0 Intake and Output 05/03/17 05/03/17 05/04/17 15:00 23:00 07:00 Intake Total 945 ml 1510 ml 1342.5 ml Output Total 140 ml 100 ml 140 ml Balance 805 ml 1410 ml 1202.5 ml Exam Exam is limited as patient is asleep Constitutional: non-verbal Head: normocephalic Neck: other (tracheostomy in place) Cardiovascular: regular rate and rhythm Extremities: pitting pedal edema Results labs, vitals and POC glucose reviewed Result Diagram: 05/04/17 0434 05/03/17 0440 Results 24 hrs Laboratory Tests Test 05/03/17 17:53 05/03/17 23:24 05/04/17 04:34 05/04/17 05:22 Bedside Glucose 167 183 181 White Blood Count 24.1 #H Red Blood Count 3.27 L Hemoglobin 9.5 L Hematocrit 29.1 L Mean Corpuscular Volume 89.0 Mean Corpuscular Hemoglobin 29.1 Mean Corpuscular Hemoglobin Concent 32.6 Red Cell Distribution Width 22.2 H Platelet Count 120 L Mean Platelet Volume 13.0 H Neutrophils % 93.7 H Lymphocytes % 2.2 L Monocytes % 2.5 Eosinophils % 0.0 Basophils % 0.1 Nucleated Red Blood Cells % 0.1 H Neutrophils # 22.6 H Lymphocytes # 0.5 L Monocytes # 0.6 Eosinophils # 0.0 Basophils # 0.0 Nucleated Red Blood Cells # 0.0 Phosphorus Level 5.0 H Magnesium Level 2.2 Test 05/04/17 12:43 05/04/17 14:32 Bedside Glucose 196 171 Medications Medications Current Medications Aspirin (Aspirin) 325 mg DAILY NGT Last administered on 04/30/17 08:43; Admin Dose 325 MG; Start 04/12/17 at 09:00; Status Future Hold Metoprolol Tartrate (Lopressor) 5 mg Q4H PRN IV HR>110 Hold SBP<110 Last administered on 04/20/17 17:36; Admin Dose 5 MG; Start 04/11/17 at 13:30 Miscellaneous Information 1 ea NOTE XX ; Start 04/11/17 at 16:30 Glucose (Glutose) 15 gm Q15M PRN PO DECREASED GLUCOSE; Start 04/11/17 at 16:30 Glucose (Glutose) 22.5 gm Q15M PRN PO DECREASED GLUCOSE; Start 04/11/17 at 16: 30 Dextrose (D50w Syringe) 25 ml Q15M PRN IV DECREASED GLUCOSE Last administered on 04/12/17 23:56; Admin Dose 25 ML; Start 04/11/17 at 16:30 Dextrose (D50w Syringe) 50 ml Q15M PRN IV DECREASED GLUCOSE; Start 04/11/17 at 16:30 Glucagon (Glucagen) 1 mg Q15M PRN IM DECREASED GLUCOSE; Start 04/11/17 at 16:30 Glucose (Glutose) 15 gm Q15M PRN BUCCAL DECREASED GLUCOSE; Start 04/11/17 at 16 :30 Metoclopramide HCl (Reglan) 10 mg Q6 IV Last administered on 05/04/17 12:44; Admin Dose 10 MG; Start 04/12/17 at 18:00 Insulin Aspart (Novolog Insulin Pen) NOVOLOG *MILD* ALGORI... Q6H SC Last administered on 05/04/17 14:35; Admin Dose 1 UNIT; Start 04/15/17 at 00:00 IV Flush (NS 10 ml) 10 ml PRN PRN IV FLUSH LINE; Start 04/15/17 at 13:00 Amiodarone HCl (Cordarone) 200 mg BID GTB Last administered on 05/04/17 09:22 ; Admin Dose 200 MG; Start 04/16/17 at 13:00 Heparin Sodium (Porcine) (Heparin (5000 Units/0.5 ml)) 5,000 unit BID SC Last administered on 04/30/17 21:03; Admin Dose 5,000 UNIT; Start 04/18/17 at 16:22; Status Future Hold Citalopram Hydrobromide (Celexa) 20 mg DAILY NGT Last administered on 09:22; Admin Dose 20 MG; Start 04/19/17 at 09:00 Hydralazine HCl 20 mg 20 mg Q6H PRN IV sbp ABOVE 160 Last administered on 12:43; Admin Dose 20 MG; Start 04/18/17 at 18:30 Caspofungin/ Sodium Chloride (Cancidas/NS) 250 ml @ 250 mls/hr Q24H IV Last administered on 05/04/17 10:39; Admin Dose 250 MLS/HR; Start 04/21/17 at 10:00 Chlorhexidine Gluconate (Peridex) 15 ml BID MT Last administered on 05/04/17 09:22; Admin Dose 15 ML; Start 04/22/17 at 21:00 Vitamin A/Vitamin D (Vitamin A & D Oint) 1 applic TID TOP Last administered on 05/04/17 12:44; Admin Dose 1 APPLIC; Start 04/22/17 at 21:00 Vitamin A/Vitamin D (Vitamin A & D Oint) 1 applic TID PRN TOP DRYNESS Last administered on 04/22/17 15:29; Admin Dose 1 APPLIC; Start 04/22/17 at 15:00 Acetaminophen/ Hydrocodone Bitart ([place] (5/325)) 1 tab Q6H GTB Last administered on 05/04/17 09:21; Admin Dose 1 TAB; Start 04/22/17 at 21:30 Spironolactone (Aldactone) 25 mg DAILY NGT Last administered on 04/30/17 08:43 ; Admin Dose 25 MG; Start 04/25/17 at 19:00; Status Future Hold Diltiazem HCl 5 mg 5 mg Q1H PRN IV HEART RATE GREATER THAN 120 Last administered on 04/29/17 06:17; Admin Dose 5 MG; Start 04/29/17 at 05:00 Meropenem/Sodium Chloride (Merrem 500mg/50 ml(Pmx)) 50 ml @ 200 mls/hr Q12 IVPB Last administered on 05/04/17 09:22; Admin Dose 200 MLS/HR; Start at 12:00 Metoprolol Tartrate (Lopressor) 25 mg BID GTB Last administered on 05/04/17 09 :21; Admin Dose 25 MG; Start 04/30/17 at 21:00; Status Future hold Valacyclovir HCl (Valtrex) 500 mg BID GTB Last administered on 05/04/17 09:22 ; Admin Dose 500 MG; Start 04/30/17 at 21:00 Metronidazole 500 mg 500 mg Q8 GTB Last administered on 05/04/17 14:33; Admin Dose 500 MG; Start 04/30/17 at 22:00 Dopamine HCl/ Dextrose 250 ml @ 4.875 mls/ hr TITRATE IV Last administered on 05/01/17 07:07; Admin Dose 48.75 MLS/HR; Start 05/01/17 at 02:30 Vasopressin/ Dextrose (Vasostrict/D5W) 60 ml @ 1.2 mls/hr Q12H IV Last administered on 05/01/17 02:48; Admin Dose 1.2 MLS/HR; Start 05/01/17 at 02:30 Hydrocortisone 100 mg 100 mg TID IV Last administered on 05/04/17 12:44; Admin Dose 100 MG; Start 05/01/17 at 09:00 Sodium Chloride 1,000 ml @ 0 mls/hr Q0M IV Last administered on 05/01/17 03: 00; Admin Dose 1,000 MLS/HR; Start 05/01/17 at 03:00 Sodium Chloride 1,000 ml @ 0 mls/hr Q0M IV Last administered on 05/01/17 04: 00; Admin Dose 1,000 MLS/HR; Start 05/01/17 at 03:30 Norepinephrine/ Dextrose (Levophed/D5W) 500 ml @ 1.87 mls/hr TITRATE IV Last administered on 05/01/17 10:13; Admin Dose 18.75 MLS/HR; Start 05/01/17 at 08: 00 Pantoprazole 40 mg 40 mg BID@06,18 IV Last administered on 05/04/17 05:26; Admin Dose 40 MG; Start 05/02/17 at 15:00 Diltiazem HCl (Cardizem-D5W 125 Mg/125 ml Drip) 125 ml @ 5 mls/hr TITRATE IV Last administered on 05/02/17 19:11; Admin Dose 5 MLS/HR; Start 05/02/17 at 19: 00 Furosemide (Lasix) 80 mg Q12 IV Last administered on 05/04/17 09:22; Admin Dose 80 MG; Start 05/03/17 at 09:00 CHRISTI HART MD May 04, 2017 15:36
--- NOTE | 2017-05-04 16:36 | PN ---
Date/Time of Note Date/Time of Note DATE: 05/04/17 TIME: 16:34 Assessment/Plan VTE Prophylaxis VTE Prophylaxis Intervention: other Lines/Catheters IV Catheter Type (from Nrs): PICC Line Central line still needed: Yes Urinary Cath still in place: Yes Reason Cath still needed: other (indicate) Assessment/Plan Chief Complaint/Hosp Course 1. acute on chronic hypoxemic respiratory failure: 2. NSTEMI: due to demand ischemia. 3. CHF/ fluid overload: due to diastolic heart failure 4. moderate 5. Arrhythmia and P afib, frequent PVC: 6. ANEMIA 7. pneumonia, severe leukocytosis now. 8. sepsis and shock: BACK ON 3 pressors now 9. Anasarca 10. s/p cardiopulm arrest due to resp failure 11. renal failure 12. coagulopathy Rec: off of ASA due to active bleeding and severe anemia and coagulopathy. resp care as per PULM Team. correct lytes prn. cont ICU care. betablocker as tolerated. cardizem IV prn . thyroid supplement . will closely monitor in ICU. diuretics as tolerated. transfuse prn Problems: Subjective 24 Hr Interval Summary Free Text/Dictation CARDIOLOGY FOLLOW UP/ critical care note: D/W staff , and . rhythm was reviewed. pt has converted back to NSR . d/w pt still s/p trach on vent Objective: General: s/p craicotomy. on vent HEENT: NC/AT. . oropharynx with old blood and multiple lesions. . NECK: NO JVD. no stridor. s/p trach on vent CV: irregularly irregular . systolic ejection murmur; no gallop or rubs. PULM: + diffuse rhonchi. GI: SOFT, NT, ND, no rebound or guarding s/p PEG Extremity: 3+ B/L LE edema. no clubbing. neuro: opens her eye Psych: calm rectal: deferred Derm: multiple echymosis Exam/Review of Systems Vital Signs Vitals Vital Signs Date Time Temp Pulse Resp B/P Pulse Ox O2 Delivery O2 Flow Rate FiO2 05/04/17 14:00 85 24 132/81 100 Mechanical Ventilator 05/04/17 13:16 35 05/04/17 12:00 97.8 05/01/17 00:30 15.0 Intake and Output 7/05/03/17 05/04/17 15:00 23:00 07:00 Intake Total 945 ml 1510 ml 1342.5 ml Output Total 140 ml 100 ml 140 ml Balance 805 ml 1410 ml 1202.5 ml Results Result Diagram: 05/04/17 0434 05/03/17 0440 Results 24 hrs Laboratory Tests Test 05/03/17 17:53 05/03/17 23:24 05/04/17 04:34 05/04/17 05:22 Bedside Glucose 167 183 181 White Blood Count 24.1 #H Red Blood Count 3.27 L Hemoglobin 9.5 L Hematocrit 29.1 L Mean Corpuscular Volume 89.0 Mean Corpuscular Hemoglobin 29.1 Mean Corpuscular Hemoglobin Concent 32.6 Red Cell Distribution Width 22.2 H Platelet Count 120 L Mean Platelet Volume 13.0 H Neutrophils % 93.7 H Lymphocytes % 2.2 L Monocytes % 2.5 Eosinophils % 0.0 Basophils % 0.1 Nucleated Red Blood Cells % 0.1 H Neutrophils # 22.6 H Lymphocytes # 0.5 L Monocytes # 0.6 Eosinophils # 0.0 Basophils # 0.0 Nucleated Red Blood Cells # 0.0 Phosphorus Level 5.0 H Magnesium Level 2.2 Test 05/04/17 12:43 05/04/17 14:32 Bedside Glucose 196 171 Medications Medications Current Medications Aspirin (Aspirin) 325 mg DAILY NGT Last administered on 04/30/17 08:43; Admin Dose 325 MG; Start 04/12/17 at 09:00; Status Future Hold Metoprolol Tartrate (Lopressor) 5 mg Q4H PRN IV HR>110 Hold SBP<110 Last administered on 04/20/17 17:36; Admin Dose 5 MG; Start 04/11/17 at 13:30 Miscellaneous Information 1 ea NOTE XX ; Start 04/11/17 at 16:30 Glucose (Glutose) 15 gm Q15M PRN PO DECREASED GLUCOSE; Start 04/11/17 at 16:30 Glucose (Glutose) 22.5 gm Q15M PRN PO DECREASED GLUCOSE; Start 04/11/17 at 16: 30 Dextrose (D50w Syringe) 25 ml Q15M PRN IV DECREASED GLUCOSE Last administered on 04/12/17 23:56; Admin Dose 25 ML; Start 04/11/17 at 16:30 Dextrose (D50w Syringe) 50 ml Q15M PRN IV DECREASED GLUCOSE; Start 04/11/17 at 16:30 Glucagon (Glucagen) 1 mg Q15M PRN IM DECREASED GLUCOSE; Start 04/11/17 at 16:30 Glucose (Glutose) 15 gm Q15M PRN BUCCAL DECREASED GLUCOSE; Start 04/11/17 at 16 :30 Metoclopramide HCl (Reglan) 10 mg Q6 IV Last administered on 05/04/17 12:44; Admin Dose 10 MG; Start 04/12/17 at 18:00 Insulin Aspart (Novolog Insulin Pen) NOVOLOG *MILD* ALGORI... Q6H SC Last administered on 05/04/17 14:35; Admin Dose 1 UNIT; Start 04/15/17 at 00:00 IV Flush (NS 10 ml) 10 ml PRN PRN IV FLUSH LINE; Start 04/15/17 at 13:00 Amiodarone HCl (Cordarone) 200 mg BID GTB Last administered on 05/04/17 09:22 ; Admin Dose 200 MG; Start 04/16/17 at 13:00 Heparin Sodium (Porcine) (Heparin (5000 Units/0.5 ml)) 5,000 unit BID SC Last administered on 04/30/17 21:03; Admin Dose 5,000 UNIT; Start 04/18/17 at 16:22; Status Future Hold Citalopram Hydrobromide (Celexa) 20 mg DAILY NGT Last administered on 09:22; Admin Dose 20 MG; Start 04/19/17 at 09:00 Hydralazine HCl 20 mg 20 mg Q6H PRN IV sbp ABOVE 160 Last administered on 12:43; Admin Dose 20 MG; Start 04/18/17 at 18:30 Caspofungin/ Sodium Chloride (Cancidas/NS) 250 ml @ 250 mls/hr Q24H IV Last administered on 05/04/17 10:39; Admin Dose 250 MLS/HR; Start 04/21/17 at 10:00 Chlorhexidine Gluconate (Peridex) 15 ml BID MT Last administered on 05/04/17 09:22; Admin Dose 15 ML; Start 04/22/17 at 21:00 Vitamin A/Vitamin D (Vitamin A & D Oint) 1 applic TID TOP Last administered on 05/04/17 12:44; Admin Dose 1 APPLIC; Start 04/22/17 at 21:00 Vitamin A/Vitamin D (Vitamin A & D Oint) 1 applic TID PRN TOP DRYNESS Last administered on 04/22/17 15:29; Admin Dose 1 APPLIC; Start 04/22/17 at 15:00 Acetaminophen/ Hydrocodone Bitart ([place] (5/325)) 1 tab Q6H GTB Last administered on 05/04/17 16:08; Admin Dose 1 TAB; Start 04/22/17 at 21:30 Spironolactone (Aldactone) 25 mg DAILY NGT Last administered on 04/30/17 08:43 ; Admin Dose 25 MG; Start 04/25/17 at 19:00; Status Future Hold Diltiazem HCl 5 mg 5 mg Q1H PRN IV HEART RATE GREATER THAN 120 Last administered on 04/29/17 06:17; Admin Dose 5 MG; Start 04/29/17 at 05:00 Meropenem/Sodium Chloride (Merrem 500mg/50 ml(Pmx)) 50 ml @ 200 mls/hr Q12 IVPB Last administered on 05/04/17 09:22; Admin Dose 200 MLS/HR; Start at 12:00 Metoprolol Tartrate (Lopressor) 25 mg BID GTB Last administered on 05/04/17 09 :21; Admin Dose 25 MG; Start 04/30/17 at 21:00; Status Future hold Valacyclovir HCl (Valtrex) 500 mg BID GTB Last administered on 05/04/17 09:22 ; Admin Dose 500 MG; Start 04/30/17 at 21:00 Metronidazole 500 mg 500 mg Q8 GTB Last administered on 05/04/17 14:33; Admin Dose 500 MG; Start 04/30/17 at 22:00 Dopamine HCl/ Dextrose 250 ml @ 4.875 mls/ hr TITRATE IV Last administered on 05/01/17 07:07; Admin Dose 48.75 MLS/HR; Start 05/01/17 at 02:30 Vasopressin 60 unit/Dextrose 60 ml @ 1.2 mls/hr Q12H IV Last administered on 7 /20/17at 02:48; Admin Dose 1.2 MLS/HR; Start 05/01/17 at 02:30 Sodium Chloride 1,000 ml @ 0 mls/hr Q0M IV Last administered on 05/01/17 03: 00; Admin Dose 1,000 MLS/HR; Start 05/01/17 at 03:00 Sodium Chloride 1,000 ml @ 0 mls/hr Q0M IV Last administered on 05/01/17 04: 00; Admin Dose 1,000 MLS/HR; Start 05/01/17 at 03:30 Norepinephrine/ Dextrose (Levophed/D5W) 500 ml @ 1.87 mls/hr TITRATE IV Last administered on 05/01/17 10:13; Admin Dose 18.75 MLS/HR; Start 05/01/17 at 08: 00 Pantoprazole 40 mg 40 mg BID@06,18 IV Last administered on 05/04/17 05:26; Admin Dose 40 MG; Start 05/02/17 at 15:00 Diltiazem HCl (Cardizem-D5W 125 Mg/125 ml Drip) 125 ml @ 5 mls/hr TITRATE IV Last administered on 05/02/17 19:11; Admin Dose 5 MLS/HR; Start 05/02/17 at 19: 00 Furosemide (Lasix) 80 mg Q12 IV Last administered on 05/04/17 09:22; Admin Dose 80 MG; Start 05/03/17 at 09:00 Hydrocortisone (Solu-Cortef) 100 mg BID IV ; Start 05/04/17 at 21:00 FRANCISCO BLACKWOOD MD May 04, 2017 16:36
[2017-05-04] MEDS ORDERED: HEPARIN 1000 UNITS/ML 10 ML INJ ONE (18:25)
[2017-05-05] VITALS (43 sets, daily range): BP systolic 98–177; BP diastolic 66–99; PULSE 58–109; RESP 0–27
[2017-05-05] MEDS: LEVALBUTEROL (HFA) 15 GM INHALER INH SCH ×4 (01:13→20:43)
[2017-05-05] MEDS: VASOPRESSIN 60 UNIT in DEXTROSE 5% 57 ML IV SCH ×2 (02:30→14:30)
[2017-05-05 05:31] LABS: ABNORMAL IP MESSAGE 1; BASOPHILS % 0.2 % (0.0-2.0); HEMATOCRIT 27.2 % (37.0-47.0); LYMPHOCYTES # 0.6 10^3/ul (0.8-2.9); LYMPHOCYTES % 3.1 % (15.0-51.0); MEAN CORPUSCULAR HEMOGLOBIN 29.6 pg (29.0-33.0); MEAN CORPUSCULAR HGB CONC 33.1 g/dl (32.0-37.0); MEAN CORPUSCULAR VOLUME 89.5 fl (82.0-101.0); MEAN PLATELET VOLUME 13.2 fl (7.4-10.4); MONOCYTE # 0.8 10^3/ul (0.3-0.9); MONOCYTES % 3.6 % (0.0-11.0); NUCLEATED RED BLOOD CELLS% 0.1 /100WBC (0.0-0.0); PLATELET COUNT 105 10^3/UL (140-415); RED BLOOD COUNT 3.04 10^6/ul (4.20-5.40); RED CELL DISTRIBUTION WIDTH 20.5 % (11.5-14.5); WHITE BLOOD COUNT 20.8 10^3/ul (4.8-10.8)
[2017-05-05 05:58] LABS: CREATININE 2.01 mg/dl (0.44-1.00); POTASSIUM 3.4 mmol/L (3.5-5.1)
[2017-05-05] MEDS: metroNIDAZOLE 500 MG TAB GTB SCH ×3 (06:06→22:00)
[2017-05-05] MEDS: PANTOPRAZOLE 40 MG INJ IV SCH ×2 (06:06→18:09)
[2017-05-05] MEDS: METOCLOPRAMIDE 10 MG INJ IV SCH ×3 (06:07→18:09)
[2017-05-05] MEDS: HYDROCODONE/APAP (5/325) TAB GTB SCH ×4 (06:07→20:36)
[2017-05-05] MEDS: LEVOTHYROXINE 75 MCG TAB GTB SCH (06:09)
[2017-05-05 06:27] LABS: NEUTROPHILS % 91.1 % (39.0-77.0); POSITIVE DIFF @See below
[2017-05-05] MEDS: INSULIN ASPART [NOVOLOG] 3 ML PEN SC SCH ×3 (06:27→18:43)
[2017-05-05] MEDS ORDERED: EPINEPHrine 0.1 MG/ML SYG ONE (07:00)
--- NOTE | 2017-05-05 07:48 | PN ---
Date/Time of Note Date/Time of Note DATE: 05/05/17 TIME: 07:42 Assessment/Plan Lines/Catheters IV Catheter Type (from [facility]): PICC Line Latif in Place (from [facility]): Yes Assessment/Plan Chief Complaint/Hosp Course 1. Cholelithiasis ? cholecystitis: Ct abd: sludge and small stones in the gallbladder. No gallbladder wall thickening is noted with some pericholecystic fluid is present. Patient off pressors; GT/OGT no output; HIDA positive; IR drain placement cancelled by radiologist since US without evidence of infection. Therefore, Dr. Guadalupe believes the HIDA is false positive. Tolerating tube feeds; no abdominal pain/discomfort; LFT's increased, bili nl (s/p code with blood loss) -No surgical intervention required at this time 2. Pneumonia: Recurrent; no fevers; reintubated; less secretion sputum cx: PSEUDOMONAS AERUGINOSA, K PNEUMO ESBL, NASRIN GLABRATA; appears comfortable -pulmonary toilet -abx per ID 3. Vent dependent respiratory failure: 2/2 aspiration PNA+ CHF;reintubated and extubated, coded 04/21 and 05/01; currently reintubated -as above 4. Septic shock: improved -on abx -supportive 5. Uncontrolled Afib: s/p amiodarone drip, on oral amiodarone; episodes of Afib Now SR -medical optimization -lovenox 6. Elevated troponin:NSTEMI; septic shock/demand ischemia -trend 7. Leukocytosis with lactic acidosis: 2/2 pneumonia vs. steroids vs.fungemia vs other (urine, repeat blood cultures negative);wbc improved: s/p code -abx, antifungals -judicious fluid management -supportive measures 8. KEYONNA: likely 2/2 septic shock; s/p code; HD started -judicious fluid management -avoid nephrotoxic agents 9. CHF: BNP elevated -judicious fluid management -medical optimization 10. Adrenal Insufficiency -solucortef 11. Hypomagnesemia: -electrolyte optimization -monitor for cardiac abnormalities 12. Hypothyroidism; tsh elevated -on synthroid 13. Macrocytic anemia: chronic vs. dilutional vs. acute bleed vs. b12/folate deficiency; neeru blood noted orally during code; prbc transfusion; h/h stable -monitor -Transfuse as needed -?heme/onc consult -GI consult 14. Transaminitis: likely 2/2 septic shock vs. cholecystitis; up s/p code -trend, monitor 15. Diarrhea: 2/2 abx vs. enteritis: resolved; tolerating tf -? probiotics 16. Thrombocytosis: 2/2 inflammatory vs. drug induced vs. other -monitor -bleeding precautions -supportive 17. Encephalopathy: 2/2 toxic metabolic vs. anoxic injury; CT: No acute intracranial hemorrhage or mass effect. Mild chronic microvascular disease and intracranial atherosclerosis; EEG shows no seizure activity -supportive 18. Bilateral upper extremity edema: likely 2/2 decreased movement vs. thrombosis; initial doppler negative, repeat doppler left arm (+) Thrombus -elevate extremities -supportive -anticoagulation 19. Hypoalbuminemia: 2/2 malnutrition +/- inflammation; decreased; tolerating tf ; -nutrition optimization -as above 20 Hypernatremia: -judicious fluid management 21. Hypocalcemia:normalized -optimize nutrition 22. Fungemia -antifungals 23. Hyperkalemia, now with hypokalemia -optimize lytes 24. Oral lesions Patient seen and examined in collaboration with Dr. Justus Antonio Problems: Subjective 24 Hr Interval Summary HD yesterday. warming blanket overnight. Tolerating tf. +bowel function. No noted bleeding. Comfortable on vent. No c/o metzger, dizziness, sz, sob, cp, palpitations,, n/v/d, fevers, chills, dysuria. Exam/Review of Systems Vital Signs Vitals Vital Signs Date Time Temp Pulse Resp B/P Pulse Ox O2 Delivery O2 Flow Rate FiO2 05/05/17 06:00 89 14 137/81 100 Mechanical Ventilator Trach Collar 05/05/17 05:33 35 05/05/17 04:00 98.0 Intake and Output 05/04/17 05/04/17 05/05/17 14:59 22:59 06:59 Intake Total 1535 ml 650 ml 1350 ml Output Total 95 ml 1455 ml 200 ml Balance 1440 ml -805 ml 1150 ml Exam Free Text/Dictation Constitutional: somnolent, appears comfortable Head: atraumatic, normocephalic Eyes: PERRL, nl lids, nl sclera ENMT: No mucosa pink and moist (pink and moist with perioral lesions) Neck: non-tender, supple, tracheostomy Respiratory: diminished, comfortable on vent Cardiovascular: nl pulses, regular rate and rhythm, NSR, Gastrointestinal: min distended, GT tubes site no erythema, no drainage, non tenderness, bowel sounds x 4 quads Genitourinary - Female: nl external genitalia Musculoskeletal: nl extremities to inspection Extremities: normal pulses, bilateral upper/lower extremity edema Neurological: responsive Skin: nl turgor, No rash or lesions Lymph: nl lymph nodes Results Result Diagram: 05/05/17 0415 05/05/17 0415 ADDISON FREGOSO NP May 05, 2017 07:48
[2017-05-05] MEDS ORDERED: POTASSIUM CHLORIDE (SR) 20 MEQ TAB PO STA (08:15)
--- NOTE | 2017-05-05 08:20 | PN ---
Date/Time of Note Date/Time of Note DATE: 05/05/17 TIME: 08:17 Assessment/Plan VTE Prophylaxis VTE Prophylaxis Intervention: other Lines/Catheters IV Catheter Type (from Nrsg): PICC Line Central line still needed: Yes Urinary Cath still in place: Yes Reason Cath still needed: other (indicate) Assessment/Plan Chief Complaint/Hosp Course 1. Status post code arrest -Etiology secondary to sepsis, hypoxemic failure -Patient was coded 30 minutes with spontaneous return of circulation We will continue to monitor 2. Ventilator dependent respiratory failure status post trach -ABG chest x-ray reviewed -We will follow-up with pulmonary, ENT consult placed with Dr. Carpio 2. nonoliguric Kenrick. With previously normal baseline creatinine. Etiology is likely secondary to septic KENRICK, ATN -Patient was initiated on dialysis due to significant volume overload and worsening renal failure Patient tolerated dialysis well Plan for daily dialysis for side clearance and volume removal - 3. Hyperkalemia secondary to acute kidney injury acidemia Improved Continue to monitor 3. Sepsis status post shock Etiology secondary to aspiration pneumonia, fungemia Patient is on broad-spectrum antibiotics, antifungals, - Patient's blood cultures have been reviewed. - Continue current treatment plan Follow-up with infectious disease 4. Volume overload. Etiology likely secondary to sepsis capillary leak, diastolic heart failure. -Continue dialysis and volume removal 6. History of adrenal insufficiency. -Patient currently on stress steroids, -Appreciate endocrinology evaluation 7. Acute encephalopathy etiologies toxic metabolic, possible anoxic injury. Mental status is improving, patient following commands CT scan showed no acute finding Appreciate Dr. Ellis evaluation -Continue to monitor closely 8. Hypernatremia Resolved 9. Hypothyroidism continue Synthroid 10. Anemia with GI bleed Status post EGD with cauterization of fundal bleed HEENT H&H levels have been stable continue to monitor Continue PPI Appreciate GIs help with management 11. Mineral bone disorder will monitor calcium phosphorus levels 12. h/o tongue cancer with resection 13. History of diastolic heart failure/coronary disease -Continue medical management 14. Leukocytosis. -Etiology is likely secondary sepsis, steroids. -Monitor - Follow-up with infectious disease. 15. Hypomagnesemia. Continue to monitor and replete as needed 16. Left upper extremity DVT. -Hold aspirin heparin in setting of bleed 17. Dysphagia status post PEG Continue tube feeding 18. Arrhythmia Status post amiodarone drip Follow-up with cardio 19. ?cholecystitis -Patient's HIDA scan was positive - cholecystostomy drain was not placed due to insufficient fluid. -No plan for drain placement at this time. I discussed case with general surgery Appreciate surgery's evaluation. 20. 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 Ellis's evaluation Continue supportive care I spent greater than 40 minutes of critical care time with this pt Problems: Subjective 24 Hr Interval Summary Free Text/Dictation Patient was initially on hemodialysis yesterday tolerated well with 1 L removed Plan for dialysis again today No other acute events noted overnight Exam/Review of Systems Vital Signs Vitals Vital Signs Date Time Temp Pulse Resp B/P Pulse Ox O2 Delivery O2 Flow Rate FiO2 05/05/17 07:26 84 24 100 35 05/05/17 06:00 137/81 Mechanical Ventilator Trach Collar 05/05/17 04:00 98.0 Intake and Output 05/04/17 05/04/17 05/05/17 15:00 23:00 07:00 Intake Total 1480 ml 600 ml 1350 ml Output Total 90 ml 1450 ml 200 ml Balance 1390 ml -850 ml 1150 ml Exam HEENT: Head is normocephalic, NECK: Supple., Positive trach HEART: Irregular LUNGS: Show diminished breath sounds at base. ABDOMEN: Soft, nontender to palpation without rebound or guarding. Positive G- tube EXTREMITIES: Negative for clubbing, cyanosis. Positive edema/anasarca DERMATOLOGIC: No rashes. MUSCULOSKELETAL: No joint effusions, NEUROLOGIC: No change in exam Results Result Diagram: 05/05/17 0415 05/05/17 0415 Results 24 hrs Laboratory Tests Test 05/04/17 12:43 05/04/17 14:32 05/04/17 19:08 05/04/17 23:18 Bedside Glucose 196 171 157 155 Test 05/05/17 04:15 05/05/17 05:57 White Blood Count 20.8 H Red Blood Count 3.04 L Hemoglobin 9.0 L Hematocrit 27.2 L Mean Corpuscular Volume 89.5 Mean Corpuscular Hemoglobin 29.6 Mean Corpuscular Hemoglobin Concent 33.1 Red Cell Distribution Width 20.5 H Platelet Count 105 L Mean Platelet Volume 13.2 H Neutrophils % 91.1 H Lymphocytes % 3.1 L Monocytes % 3.6 Eosinophils % 0.0 Basophils % 0.2 Nucleated Red Blood Cells % 0.1 H Neutrophils # 19.0 H Lymphocytes # 0.6 L Monocytes # 0.8 Eosinophils # 0.0 Basophils # 0.0 Nucleated Red Blood Cells # 0.0 Sodium Level 141 Potassium Level 3.4 L Chloride Level 104 Carbon Dioxide Level 26 Anion Gap 14 Blood Urea Nitrogen 69 H Creatinine 2.01 H Glucose Level 158 Calcium Level 8.0 L Phosphorus Level 4.0 Magnesium Level 2.0 Bedside Glucose 152 Medications Medications Current Medications Aspirin (Aspirin) 325 mg DAILY NGT Last administered on 04/30/17 08:43; Admin Dose 325 MG; Start 04/12/17 at 09:00; Status Future Hold Metoprolol Tartrate (Lopressor) 5 mg Q4H PRN IV HR>110 Hold SBP<110 Last administered on 04/20/17 17:36; Admin Dose 5 MG; Start 04/11/17 at 13:30 Miscellaneous Information 1 ea NOTE XX ; Start 04/11/17 at 16:30 Glucose (Glutose) 15 gm Q15M PRN PO DECREASED GLUCOSE; Start 04/11/17 at 16:30 Glucose (Glutose) 22.5 gm Q15M PRN PO DECREASED GLUCOSE; Start 04/11/17 at 16: 30 Dextrose (D50w Syringe) 25 ml Q15M PRN IV DECREASED GLUCOSE Last administered on 04/12/17 23:56; Admin Dose 25 ML; Start 04/11/17 at 16:30 Dextrose (D50w Syringe) 50 ml Q15M PRN IV DECREASED GLUCOSE; Start 04/11/17 at 16:30 Glucagon (Glucagen) 1 mg Q15M PRN IM DECREASED GLUCOSE; Start 04/11/17 at 16:30 Glucose (Glutose) 15 gm Q15M PRN BUCCAL DECREASED GLUCOSE; Start 04/11/17 at 16 :30 Metoclopramide HCl (Reglan) 10 mg Q6 IV Last administered on 05/05/17 06:07; Admin Dose 10 MG; Start 04/12/17 at 18:00 Insulin Aspart (Novolog Insulin Pen) NOVOLOG *MILD* ALGORI... Q6H SC Last administered on 05/05/17 06:27; Admin Dose 1 UNIT; Start 04/15/17 at 00:00 IV Flush (NS 10 ml) 10 ml PRN PRN IV FLUSH LINE; Start 04/15/17 at 13:00 Amiodarone HCl (Cordarone) 200 mg BID GTB Last administered on 05/04/17 23:21 ; Admin Dose 200 MG; Start 04/16/17 at 13:00 Heparin Sodium (Porcine) (Heparin (5000 Units/0.5 ml)) 5,000 unit BID SC Last administered on 04/30/17 21:03; Admin Dose 5,000 UNIT; Start 04/18/17 at 16:22; Status Future Hold Citalopram Hydrobromide (Celexa) 20 mg DAILY NGT Last administered on 09:22; Admin Dose 20 MG; Start 04/19/17 at 09:00 Hydralazine HCl 20 mg 20 mg Q6H PRN IV sbp ABOVE 160 Last administered on 12:43; Admin Dose 20 MG; Start 04/18/17 at 18:30 Caspofungin/ Sodium Chloride (Cancidas/NS) 250 ml @ 250 mls/hr Q24H IV Last administered on 05/04/17 10:39; Admin Dose 250 MLS/HR; Start 04/21/17 at 10:00 Chlorhexidine Gluconate (Peridex) 15 ml BID MT Last administered on 05/04/17 20:13; Admin Dose 15 ML; Start 04/22/17 at 21:00 Vitamin A/Vitamin D (Vitamin A & D Oint) 1 applic TID TOP Last administered on 05/04/17 20:13; Admin Dose 1 APPLIC; Start 04/22/17 at 21:00 Vitamin A/Vitamin D (Vitamin A & D Oint) 1 applic TID PRN TOP DRYNESS Last administered on 04/22/17 15:29; Admin Dose 1 APPLIC; Start 04/22/17 at 15:00 Acetaminophen/ Hydrocodone Bitart ([place] (5/325)) 1 tab Q6H GTB Last administered on 05/05/17 06:07; Admin Dose 1 TAB; Start 04/22/17 at 21:30 Spironolactone (Aldactone) 25 mg DAILY NGT Last administered on 04/30/17 08:43 ; Admin Dose 25 MG; Start 04/25/17 at 19:00; Status Future Hold Diltiazem HCl 5 mg 5 mg Q1H PRN IV HEART RATE GREATER THAN 120 Last administered on 04/29/17 06:17; Admin Dose 5 MG; Start 04/29/17 at 05:00 Meropenem/Sodium Chloride (Merrem 500mg/50 ml(Pmx)) 50 ml @ 200 mls/hr Q12 IVPB Last administered on 05/04/17 20:29; Admin Dose 200 MLS/HR; Start at 12:00 Metoprolol Tartrate (Lopressor) 25 mg BID GTB Last administered on 05/04/17 23 :20; Admin Dose 25 MG; Start 04/30/17 at 21:00; Status Future hold Valacyclovir HCl (Valtrex) 500 mg BID GTB Last administered on 05/04/17 20:13 ; Admin Dose 500 MG; Start 04/30/17 at 21:00 Metronidazole 500 mg 500 mg Q8 GTB Last administered on 05/05/17 06:06; Admin Dose 500 MG; Start 04/30/17 at 22:00 Dopamine HCl/ Dextrose 250 ml @ 4.875 mls/ hr TITRATE IV Last administered on 05/01/17 07:07; Admin Dose 48.75 MLS/HR; Start 05/01/17 at 02:30 Vasopressin 60 unit/Dextrose 60 ml @ 1.2 mls/hr Q12H IV Last administered on 02:48; Admin Dose 1.2 MLS/HR; Start 05/01/17 at 02:30 Sodium Chloride 1,000 ml @ 0 mls/hr Q0M IV Last administered on 05/01/17 03: 00; Admin Dose 1,000 MLS/HR; Start 05/01/17 at 03:00 Sodium Chloride 1,000 ml @ 0 mls/hr Q0M IV Last administered on 05/01/17 04: 00; Admin Dose 1,000 MLS/HR; Start 05/01/17 at 03:30 Norepinephrine/ Dextrose (Levophed/D5W) 500 ml @ 1.87 mls/hr TITRATE IV Last administered on 05/01/17 10:13; Admin Dose 18.75 MLS/HR; Start 05/01/17 at 08: 00 Pantoprazole 40 mg 40 mg BID@06,18 IV Last administered on 05/05/17 06:06; Admin Dose 40 MG; Start 05/02/17 at 15:00 Diltiazem HCl (Cardizem-D5W 125 Mg/125 ml Drip) 125 ml @ 5 mls/hr TITRATE IV Last administered on 05/02/17 19:11; Admin Dose 5 MLS/HR; Start 05/02/17 at 19: 00 Furosemide (Lasix) 80 mg Q12 IV Last administered on 05/04/17 20:14; Admin Dose 80 MG; Start 05/03/17 at 09:00 Hydrocortisone (Solu-Cortef) 100 mg BID IV Last administered on 05/04/17 20:13 ; Admin Dose 100 MG; Start 05/04/17 at 21:00 NIAN MACIEL DO May 05, 2017 08:20
[2017-05-05] MEDS: VITAMIN A & D 5 GM OINT PACKET TOP SCH ×3 (08:56→21:00)
[2017-05-05] MEDS: HYDROCORTISONE 100 MG INJ IV SCH ×2 (08:56→20:37)
[2017-05-05] MEDS: CHLORHEXIDINE GLUCONATE 15 ML UD CUP MT SCH ×2 (08:56→21:00)
[2017-05-05] MEDS: VALACYCLOVIR 500 MG TAB GTB SCH ×2 (08:57→20:35)
[2017-05-05] MEDS: FUROSEMIDE 40 MG INJ IV SCH ×2 (08:57→20:36)
[2017-05-05] MEDS: AMIODARONE 200 MG TAB GTB SCH ×2 (08:57→20:36)
[2017-05-05] MEDS: CITALOPRAM 20 MG TAB NGT SCH (08:57)
[2017-05-05] MEDS: METOPROLOL 25 MG TAB GTB SCH ×2 (08:57→20:41)
[2017-05-05] MEDS: MEROPENEM 500MG/50 ML (PMX) 50 ML IVPB SCH ×2 (09:06→21:00)
[2017-05-05 09:41] LABS: ANISOCYTOSIS 2+ (0-0); METAMYELOCYTES %M 1 % (0-0); MICROCYTOSIS 1+ (0-0); MONOCYTES % (M) 2 % (0-11); PLATELET ESTIMATE DECREASED; POLYCHROMASIA 3+ (0-0)
[2017-05-05] MEDS: CASPOFUNGIN 50 MG in NS 250 ML IV SCH (10:44)
--- NOTE | 2017-05-05 11:04 | CONS ---
Date/Time of Note Date/Time of Note DATE: 05/05/17 TIME: 11:02 Assessment/Plan Assessment/Plan Chief Complaint/Hosp Course No acute changes, patient is very weak and lethargic. She had dialysis yesterday and plan to dialyze her today as well. She is oliguric making about 30 cc in 3 hours per report Temperature 98 pulse 88 respirations 24 blood pressure 135/78 saturation 100 on 35 FiO2 WBC 20.8 H&H 9 and 27.2 platelets 105 neutrophils 91.1 BN 69 creatinine 2.01 Indwelling's trach, PEG, Latif, right femoral Amrit catheter placed on May 04 , Latif Antibiotics: Merrem, Flagyl, Cancidas, Valtrex Physical examination: Chronically ill-appearing elderly woman who is lying comfortably in bed. Head atraumatic, normocephalic sclera nonicteric bugle mucosa dry patient has wounds on her upper and lower lips neck is supple tracheostomy present chest rise symmetrical breath sounds with bilateral scattered crackles. Heart: S1-S2, tachycardic. 1 day 7 month total Is alert and abdomen soft bowel tones hypoactive. Extremities with bilateral edema. Skin pale with severe anasarca. Assessment: 1. Sepsis, s/p shock, off pressors, started on Solu-Cortef 2. Acute on chronic respiratory failure, possible recurrent aspiration 3. Leukocytosis, combination of sepsis and steroids induced 4. S/p fungemia with repeat blood cultures being negative 5. Status post rapid atrial fibrillation 6. Acute on chronic anemia secondary to AVM ==> stopped, status post EGD on May 02 with injection of epinephrine 7. Acute on chronic renal failure Plan: Hemodynamically stable, continue present care, antibiotics, steroids taper , HD per renal Discussed with staff discussed with at bedside Problems: Consultation Date/Type/Reason Admit Date/Time Apr 11, 2017 at 11:28 Initial Consult Date 04/12/17 Type of Consultation: id Referring Provider: NINA MACIEL DO Exam/Review of Systems Vital Signs Vitals Vital Signs Date Time Temp Pulse Resp B/P Pulse Ox O2 Delivery O2 Flow Rate FiO2 05/05/17 10:00 88 24 135/78 100 Mechanical Ventilator 05/05/17 09:25 35 05/05/17 07:00 99.0 Intake and Output 05/04/17 05/04/17 05/05/17 15:00 23:00 07:00 Intake Total 1480 ml 600 ml 1350 ml Output Total 90 ml 1450 ml 200 ml Balance 1390 ml -850 ml 1150 ml Results Result Diagram: 05/05/17 0415 05/05/17 0415 Results 24 hrs Laboratory Tests Test 05/04/17 12:43 05/04/17 14:32 05/04/17 19:08 05/04/17 23:18 Bedside Glucose 196 171 157 155 Test 05/05/17 04:15 05/05/17 05:57 White Blood Count 20.8 H Red Blood Count 3.04 L Hemoglobin 9.0 L Hematocrit 27.2 L Mean Corpuscular Volume 89.5 Mean Corpuscular Hemoglobin 29.6 Mean Corpuscular Hemoglobin Concent 33.1 Red Cell Distribution Width 20.5 H Platelet Count 105 L Mean Platelet Volume 13.2 H Neutrophils % 91.1 H Segmented Neutrophils % (Manual) 93 H Band Neutrophils % (Manual) 1 Lymphocytes % 3.1 L Lymphocytes % (Manual) 3 L Monocytes % 3.6 Monocytes % (Manual) 2 Eosinophils % 0.0 Basophils % 0.2 Metamyelocytes % (manual) 1 H Nucleated Red Blood Cells % 0.1 H Neutrophils # 19.0 H Neutrophils # (Manual) 19.4 H Band Neutrophils # 0.2 Absolute Lymphocytes (Manual) 0.6 L Lymphocytes # 0.6 L Monocytes # 0.8 Absolute Monocytes (Manual) 0.4 Eosinophils # 0.0 Basophils # 0.0 Metamyelocytes # 0.2 H Nucleated Red Blood Cells # 0.0 Smudge Cells % 1 H Platelet Estimate DECREASED Polychromasia 3+ Anisocytosis 2+ Microcytosis 1+ Macrocytosis 1+ Sodium Level 141 Potassium Level 3.4 L Chloride Level 104 Carbon Dioxide Level 26 Anion Gap 14 Blood Urea Nitrogen 69 H Creatinine 2.01 H Glucose Level 158 Calcium Level 8.0 L Phosphorus Level 4.0 Magnesium Level 2.0 Bedside Glucose 152 Medications Medications Current Medications Aspirin (Aspirin) 325 mg DAILY NGT Last administered on 04/30/17 08:43; Admin Dose 325 MG; Start 04/12/17 at 09:00; Status Future Hold Metoprolol Tartrate (Lopressor) 5 mg Q4H PRN IV HR>110 Hold SBP<110 Last administered on 04/20/17 17:36; Admin Dose 5 MG; Start 04/11/17 at 13:30 Miscellaneous Information 1 ea NOTE XX ; Start 04/11/17 at 16:30 Glucose (Glutose) 15 gm Q15M PRN PO DECREASED GLUCOSE; Start 04/11/17 at 16:30 Glucose (Glutose) 22.5 gm Q15M PRN PO DECREASED GLUCOSE; Start 04/11/17 at 16: 30 Dextrose (D50w Syringe) 25 ml Q15M PRN IV DECREASED GLUCOSE Last administered on 04/12/17 23:56; Admin Dose 25 ML; Start 04/11/17 at 16:30 Dextrose (D50w Syringe) 50 ml Q15M PRN IV DECREASED GLUCOSE; Start 04/11/17 at 16:30 Glucagon (Glucagen) 1 mg Q15M PRN IM DECREASED GLUCOSE; Start 04/11/17 at 16:30 Glucose (Glutose) 15 gm Q15M PRN BUCCAL DECREASED GLUCOSE; Start 04/11/17 at 16 :30 Metoclopramide HCl (Reglan) 10 mg Q6 IV Last administered on 05/05/17 06:07; Admin Dose 10 MG; Start 04/12/17 at 18:00 Insulin Aspart (Novolog Insulin Pen) NOVOLOG *MILD* ALGORI... Q6H SC Last administered on 05/05/17 06:27; Admin Dose 1 UNIT; Start 04/15/17 at 00:00 IV Flush (NS 10 ml) 10 ml PRN PRN IV FLUSH LINE; Start 04/15/17 at 13:00 Amiodarone HCl (Cordarone) 200 mg BID GTB Last administered on 05/04/17 23:21 ; Admin Dose 200 MG; Start 04/16/17 at 13:00 Heparin Sodium (Porcine) (Heparin (5000 Units/0.5 ml)) 5,000 unit BID SC Last administered on 04/30/17 21:03; Admin Dose 5,000 UNIT; Start 04/18/17 at 16:22; Status Future Hold Citalopram Hydrobromide (Celexa) 20 mg DAILY NGT Last administered on 08:57; Admin Dose 20 MG; Start 04/19/17 at 09:00 Hydralazine HCl 20 mg 20 mg Q6H PRN IV sbp ABOVE 160 Last administered on 12:43; Admin Dose 20 MG; Start 04/18/17 at 18:30 Caspofungin/ Sodium Chloride (Cancidas/NS) 250 ml @ 250 mls/hr Q24H IV Last administered on 05/05/17 10:44; Admin Dose 250 MLS/HR; Start 04/21/17 at 10:00 Chlorhexidine Gluconate (Peridex) 15 ml BID MT Last administered on 05/05/17 08:56; Admin Dose 15 ML; Start 04/22/17 at 21:00 Vitamin A/Vitamin D (Vitamin A & D Oint) 1 applic TID TOP Last administered on 05/05/17 08:56; Admin Dose 1 APPLIC; Start 04/22/17 at 21:00 Vitamin A/Vitamin D (Vitamin A & D Oint) 1 applic TID PRN TOP DRYNESS Last administered on 04/22/17 15:29; Admin Dose 1 APPLIC; Start 04/22/17 at 15:00 Acetaminophen/ Hydrocodone Bitart ([place] (5/325)) 1 tab Q6H GTB Last administered on 05/05/17 09:06; Admin Dose 1 TAB; Start 04/22/17 at 21:30 Spironolactone (Aldactone) 25 mg DAILY NGT Last administered on 04/30/17 08:43 ; Admin Dose 25 MG; Start 04/25/17 at 19:00; Status Future Hold Diltiazem HCl 5 mg 5 mg Q1H PRN IV HEART RATE GREATER THAN 120 Last administered on 04/29/17 06:17; Admin Dose 5 MG; Start 04/29/17 at 05:00 Meropenem/Sodium Chloride (Merrem 500mg/50 ml(Pmx)) 50 ml @ 200 mls/hr Q12 IVPB Last administered on 05/05/17 09:06; Admin Dose 200 MLS/HR; Start at 12:00 Metoprolol Tartrate (Lopressor) 25 mg BID GTB Last administered on 05/04/17 23 :20; Admin Dose 25 MG; Start 04/30/17 at 21:00; Status Future hold Valacyclovir HCl (Valtrex) 500 mg BID GTB Last administered on 05/05/17 08:57 ; Admin Dose 500 MG; Start 04/30/17 at 21:00 Metronidazole 500 mg 500 mg Q8 GTB Last administered on 05/05/17 06:06; Admin Dose 500 MG; Start 04/30/17 at 22:00 Dopamine HCl/ Dextrose 250 ml @ 4.875 mls/ hr TITRATE IV Last administered on 05/01/17 07:07; Admin Dose 48.75 MLS/HR; Start 05/01/17 at 02:30 Vasopressin 60 unit/Dextrose 60 ml @ 1.2 mls/hr Q12H IV Last administered on 02:48; Admin Dose 1.2 MLS/HR; Start 05/01/17 at 02:30 Sodium Chloride 1,000 ml @ 0 mls/hr Q0M IV Last administered on 05/01/17 03: 00; Admin Dose 1,000 MLS/HR; Start 05/01/17 at 03:00 Sodium Chloride 1,000 ml @ 0 mls/hr Q0M IV Last administered on 05/01/17 04: 00; Admin Dose 1,000 MLS/HR; Start 05/01/17 at 03:30 Norepinephrine/ Dextrose (Levophed/D5W) 500 ml @ 1.87 mls/hr TITRATE IV Last administered on 05/01/17 10:13; Admin Dose 18.75 MLS/HR; Start 05/01/17 at 08: 00 Pantoprazole 40 mg 40 mg BID@06,18 IV Last administered on 05/05/17 06:06; Admin Dose 40 MG; Start 05/02/17 at 15:00 Diltiazem HCl (Cardizem-D5W 125 Mg/125 ml Drip) 125 ml @ 5 mls/hr TITRATE IV Last administered on 05/02/17 19:11; Admin Dose 5 MLS/HR; Start 05/02/17 at 19: 00 Furosemide (Lasix) 80 mg Q12 IV Last administered on 05/04/17 20:14; Admin Dose 80 MG; Start 05/03/17 at 09:00 Hydrocortisone (Solu-Cortef) 100 mg BID IV Last administered on 05/05/17 08:56 ; Admin Dose 100 MG; Start 05/04/17 at 21:00 LORETO MCKEON NP May 05, 2017 11:04
--- NOTE | 2017-05-05 11:43 | CONS ---
Date/Time of Note Date/Time of Note DATE: 05/05/17 TIME: 11:41 Consult Date/Type/Reason Admit Date/Time Apr 11, 2017 at 11:28 Initial Consult Date 04/12/17 Type of Consultation: Pulmonary Ordering Provider: NINA MACIEL DO Subjective Awake and alert on mechanical ventilation Objective Vital Signs Date Time Temp Pulse Resp B/P Pulse Ox O2 Delivery O2 Flow Rate FiO2 05/05/17 11:10 92 24 100 35 05/05/17 10:00 135/78 Mechanical Ventilator 05/05/17 07:00 99.0 Intake and Output 05/04/17 05/04/17 05/05/17 14:59 22:59 06:59 Intake Total 1535 ml 650 ml 1350 ml Output Total 95 ml 1455 ml 200 ml Balance 1440 ml -805 ml 1150 ml Exam GENERAL: Elderly lady on mechanical ventilation via tracheostomy comfortable no distress VITAL SIGNS: see below. HEENT: Pupils equal, round, and reactive to light. Tracheostomy site clean and intact. CARDIAC: S1, S2, 1/6 systolic ejection murmur CHEST: Diminished air entry bilaterally. ABDOMEN: Mildly distended. Bowel sounds present no guarding or rebound EXTREMITIES: No cyanosis, clubbing edema +2 significant anasarca upper extremities NEUROLOGIC: Generalized weakness Results/Medications Result Diagram: 05/05/17 0415 05/05/17 0415 Results 24 hrs Laboratory Tests Test 05/04/17 12:43 05/04/17 14:32 05/04/17 19:08 05/04/17 23:18 Bedside Glucose 196 171 157 155 Test 05/05/17 04:15 05/05/17 05:57 White Blood Count 20.8 H Red Blood Count 3.04 L Hemoglobin 9.0 L Hematocrit 27.2 L Mean Corpuscular Volume 89.5 Mean Corpuscular Hemoglobin 29.6 Mean Corpuscular Hemoglobin Concent 33.1 Red Cell Distribution Width 20.5 H Platelet Count 105 L Mean Platelet Volume 13.2 H Neutrophils % 91.1 H Segmented Neutrophils % (Manual) 93 H Band Neutrophils % (Manual) 1 Lymphocytes % 3.1 L Lymphocytes % (Manual) 3 L Monocytes % 3.6 Monocytes % (Manual) 2 Eosinophils % 0.0 Basophils % 0.2 Metamyelocytes % (manual) 1 H Nucleated Red Blood Cells % 0.1 H Neutrophils # 19.0 H Neutrophils # (Manual) 19.4 H Band Neutrophils # 0.2 Absolute Lymphocytes (Manual) 0.6 L Lymphocytes # 0.6 L Monocytes # 0.8 Absolute Monocytes (Manual) 0.4 Eosinophils # 0.0 Basophils # 0.0 Metamyelocytes # 0.2 H Nucleated Red Blood Cells # 0.0 Smudge Cells % 1 H Platelet Estimate DECREASED Polychromasia 3+ Anisocytosis 2+ Microcytosis 1+ Macrocytosis 1+ Sodium Level 141 Potassium Level 3.4 L Chloride Level 104 Carbon Dioxide Level 26 Anion Gap 14 Blood Urea Nitrogen 69 H Creatinine 2.01 H Glucose Level 158 Calcium Level 8.0 L Phosphorus Level 4.0 Magnesium Level 2.0 Bedside Glucose 152 Medications Current Medications Aspirin (Aspirin) 325 mg DAILY NGT Last administered on 04/30/17 08:43; Admin Dose 325 MG; Start 04/12/17 at 09:00; Status Future Hold Metoprolol Tartrate (Lopressor) 5 mg Q4H PRN IV HR>110 Hold SBP<110 Last administered on 04/20/17 17:36; Admin Dose 5 MG; Start 04/11/17 at 13:30 Miscellaneous Information 1 ea NOTE XX ; Start 04/11/17 at 16:30 Glucose (Glutose) 15 gm Q15M PRN PO DECREASED GLUCOSE; Start 04/11/17 at 16:30 Glucose (Glutose) 22.5 gm Q15M PRN PO DECREASED GLUCOSE; Start 04/11/17 at 16: 30 Dextrose (D50w Syringe) 25 ml Q15M PRN IV DECREASED GLUCOSE Last administered on 04/12/17 23:56; Admin Dose 25 ML; Start 04/11/17 at 16:30 Dextrose (D50w Syringe) 50 ml Q15M PRN IV DECREASED GLUCOSE; Start 04/11/17 at 16:30 Glucagon (Glucagen) 1 mg Q15M PRN IM DECREASED GLUCOSE; Start 04/11/17 at 16:30 Glucose (Glutose) 15 gm Q15M PRN BUCCAL DECREASED GLUCOSE; Start 04/11/17 at 16 :30 Metoclopramide HCl (Reglan) 10 mg Q6 IV Last administered on 05/05/17 06:07; Admin Dose 10 MG; Start 04/12/17 at 18:00 Insulin Aspart (Novolog Insulin Pen) NOVOLOG *MILD* ALGORI... Q6H SC Last administered on 05/05/17 06:27; Admin Dose 1 UNIT; Start 04/15/17 at 00:00 IV Flush (NS 10 ml) 10 ml PRN PRN IV FLUSH LINE; Start 04/15/17 at 13:00 Amiodarone HCl (Cordarone) 200 mg BID GTB Last administered on 05/04/17 23:21 ; Admin Dose 200 MG; Start 04/16/17 at 13:00 Heparin Sodium (Porcine) (Heparin (5000 Units/0.5 ml)) 5,000 unit BID SC Last administered on 04/30/17 21:03; Admin Dose 5,000 UNIT; Start 04/18/17 at 16:22; Status Future Hold Citalopram Hydrobromide (Celexa) 20 mg DAILY NGT Last administered on 08:57; Admin Dose 20 MG; Start 04/19/17 at 09:00 Hydralazine HCl 20 mg 20 mg Q6H PRN IV sbp ABOVE 160 Last administered on 12:43; Admin Dose 20 MG; Start 04/18/17 at 18:30 Caspofungin/ Sodium Chloride (Cancidas/NS) 250 ml @ 250 mls/hr Q24H IV Last administered on 05/05/17 10:44; Admin Dose 250 MLS/HR; Start 04/21/17 at 10:00 Chlorhexidine Gluconate (Peridex) 15 ml BID MT Last administered on 05/05/17 08:56; Admin Dose 15 ML; Start 04/22/17 at 21:00 Vitamin A/Vitamin D (Vitamin A & D Oint) 1 applic TID TOP Last administered on 05/05/17 08:56; Admin Dose 1 APPLIC; Start 04/22/17 at 21:00 Vitamin A/Vitamin D (Vitamin A & D Oint) 1 applic TID PRN TOP DRYNESS Last administered on 04/22/17 15:29; Admin Dose 1 APPLIC; Start 04/22/17 at 15:00 Acetaminophen/ Hydrocodone Bitart ([place] (5/325)) 1 tab Q6H GTB Last administered on 05/05/17 09:06; Admin Dose 1 TAB; Start 04/22/17 at 21:30 Spironolactone (Aldactone) 25 mg DAILY NGT Last administered on 04/30/17 08:43 ; Admin Dose 25 MG; Start 04/25/17 at 19:00; Status Future Hold Diltiazem HCl 5 mg 5 mg Q1H PRN IV HEART RATE GREATER THAN 120 Last administered on 04/29/17 06:17; Admin Dose 5 MG; Start 04/29/17 at 05:00 Meropenem/Sodium Chloride (Merrem 500mg/50 ml(Pmx)) 50 ml @ 200 mls/hr Q12 IVPB Last administered on 05/05/17 09:06; Admin Dose 200 MLS/HR; Start at 12:00 Metoprolol Tartrate (Lopressor) 25 mg BID GTB Last administered on 05/04/17 23 :20; Admin Dose 25 MG; Start 04/30/17 at 21:00; Status Future hold Valacyclovir HCl (Valtrex) 500 mg BID GTB Last administered on 05/05/17 08:57 ; Admin Dose 500 MG; Start 04/30/17 at 21:00 Metronidazole 500 mg 500 mg Q8 GTB Last administered on 05/05/17 06:06; Admin Dose 500 MG; Start 04/30/17 at 22:00 Dopamine HCl/ Dextrose 250 ml @ 4.875 mls/ hr TITRATE IV Last administered on 05/01/17 07:07; Admin Dose 48.75 MLS/HR; Start 05/01/17 at 02:30 Vasopressin 60 unit/Dextrose 60 ml @ 1.2 mls/hr Q12H IV Last administered on 02:48; Admin Dose 1.2 MLS/HR; Start 05/01/17 at 02:30 Sodium Chloride 1,000 ml @ 0 mls/hr Q0M IV Last administered on 05/01/17 03: 00; Admin Dose 1,000 MLS/HR; Start 05/01/17 at 03:00 Sodium Chloride 1,000 ml @ 0 mls/hr Q0M IV Last administered on 05/01/17 04: 00; Admin Dose 1,000 MLS/HR; Start 05/01/17 at 03:30 Norepinephrine/ Dextrose (Levophed/D5W) 500 ml @ 1.87 mls/hr TITRATE IV Last administered on 05/01/17 10:13; Admin Dose 18.75 MLS/HR; Start 05/01/17 at 08: 00 Pantoprazole 40 mg 40 mg BID@06,18 IV Last administered on 05/05/17 06:06; Admin Dose 40 MG; Start 05/02/17 at 15:00 Diltiazem HCl (Cardizem-D5W 125 Mg/125 ml Drip) 125 ml @ 5 mls/hr TITRATE IV Last administered on 05/02/17 19:11; Admin Dose 5 MLS/HR; Start 05/02/17 at 19: 00 Furosemide (Lasix) 80 mg Q12 IV Last administered on 05/04/17 20:14; Admin Dose 80 MG; Start 05/03/17 at 09:00 Hydrocortisone (Solu-Cortef) 100 mg BID IV Last administered on 05/05/17 08:56 ; Admin Dose 100 MG; Start 05/04/17 at 21:00 Assessment/Plan Chief Complaint/Hosp Course IMP: 1. Status post septic shock secondary to above likely aspiration pneumonia. Now on mechanical ventilation via tracheostomy. 2. Multifocal pneumonia aspiration vs.HCAP, persistent leukocytosis chest x-ray shows improved lung aeration. 3. Hypercapnic Respiratory Failure--likely due to critical illness now extubated again on nasal cannula 4. Status post lactic acidosis. 5. Demand Ischemia, atrial fibrillation with rapid ventricular rate 6. Cholecystitis stable, not for surgical intervention at present 7. Significant anemia likely secondary to upper oropharyngeal bleed. RECS: 1. Continue mechanical ventilation. Continue current ventilator settings 2. Oral care. 3. Aspiration precautions. 4. Continue vasopressors as needed. 5. Continue antibiotics ID recommendations 6. Continue physical therapy 7. Palliative care evaluation Critical care time 40 minutes. Stable for transfer to telemetry, consider [facility] eval Problems: DARWIN CRAWFORD MD, [facility] May 05, 2017 11:43
[2017-05-05] MEDS ORDERED: ALBUMIN HUMAN 25% 100 ML ONE (13:06)
[2017-05-05] MEDS ORDERED: ALBUMIN HUMAN 25% 100 ML IV ONE (13:30)
--- NOTE | 2017-05-05 16:12 | CONS ---
Date/Time of Note Date/Time of Note DATE: 05/05/17 TIME: 16:11 Assessment/Plan Assessment/Plan Chief Complaint/Hosp Course Patient is a 66 year old female with a history of diabetes mellitus hypertension chronic vent dependency, history of tongue cancer status post resection has a G-tube. GI consult was called in for GI bleeding anemia requiring blood transfusion. Her other problems include aspiration pneumonia, atrial fibrillation well controlled. Patient also had a sepsis and fungemia successfully treated. Her G-tube aspirate shows burgundy colored fluid. Patient is off all the pressor support. She is on a steroid for adrenal insufficiency Problems: Additional Assessment/Plan Additional Assessment/Plan #1 GI bleeding manifested in the form of hematemesis and large burgundy color aspirate through G-tube, successful hemostasis achieved. No further bleeding 2. Vent dependent respiratory failure 3. Atrial fibrillation 4. Diabetes mellitus 5. Hypertension 6. Status post septic shock 7. Anemia 8. Prerenal azotemia 9. Status post cardiac arrest in the past Plan Transfuse 2 units of packed cell RBC bring hemoglobin greater than 7.5 Continue with PPI Refrain from all kind of blood thinner. Consultation Date/Type/Reason Admit Date/Time Apr 11, 2017 at 11:28 Initial Consult Date 05/01/17 Type of Consultation: Pulmonary Referring Provider: NINA MACIEL DO 24 HR Interval Summary Free Text/Dictation No bleeding as per the staff. Stool is normal in color Exam/Review of Systems Vital Signs Vitals Vital Signs Date Time Temp Pulse Resp B/P Pulse Ox O2 Delivery O2 Flow Rate FiO2 05/05/17 15:18 99 25 100 35 05/05/17 12:00 98.0 145/88 Mechanical Ventilator Intake and Output 05/04/17 05/04/17 05/05/17 15:00 23:00 07:00 Intake Total 1480 ml 600 ml 1350 ml Output Total 90 ml 1450 ml 200 ml Balance 1390 ml -850 ml 1150 ml Exam Constitutional: alert, oriented, well developed Psych: nl mood/affect, no complaints Head: atraumatic, normocephalic Eyes: EOMI, PERRL, nl conjunctiva, nl lids, nl sclera ENMT: nl external ears & nose, nl lips & teeth, nl nasal mucosa & septum Neck: non-tender, supple Respiratory: clear to auscultation, normal air movement Cardiovascular: nl pulses, regular rate and rhythm Gastrointestinal: nl liver, spleen, non-tender, soft Musculoskeletal: nl extremities to inspection, nl gait and stance Extremities: normal pulses Neurological: DISBURSEMENT CLERK II-XII intact, nl mental status, nl speech, nl strength Skin: nl turgor, No rash or lesions Lymph: nl lymph nodes Results Result Diagram: 05/05/17 0415 05/05/17 0415 Results 24 hrs Laboratory Tests Test 05/04/17 19:08 05/04/17 23:18 05/05/17 04:15 05/05/17 05:57 Bedside Glucose 157 155 152 White Blood Count 20.8 H Red Blood Count 3.04 L Hemoglobin 9.0 L Hematocrit 27.2 L Mean Corpuscular Volume 89.5 Mean Corpuscular Hemoglobin 29.6 Mean Corpuscular Hemoglobin Concent 33.1 Red Cell Distribution Width 20.5 H Platelet Count 105 L Mean Platelet Volume 13.2 H Neutrophils % 91.1 H Segmented Neutrophils % (Manual) 93 H Band Neutrophils % (Manual) 1 Lymphocytes % 3.1 L Lymphocytes % (Manual) 3 L Monocytes % 3.6 Monocytes % (Manual) 2 Eosinophils % 0.0 Basophils % 0.2 Metamyelocytes % (manual) 1 H Nucleated Red Blood Cells % 0.1 H Neutrophils # 19.0 H Neutrophils # (Manual) 19.4 H Band Neutrophils # 0.2 Absolute Lymphocytes (Manual) 0.6 L Lymphocytes # 0.6 L Monocytes # 0.8 Absolute Monocytes (Manual) 0.4 Eosinophils # 0.0 Basophils # 0.0 Metamyelocytes # 0.2 H Nucleated Red Blood Cells # 0.0 Smudge Cells % 1 H Platelet Estimate DECREASED Polychromasia 3+ Anisocytosis 2+ Microcytosis 1+ Macrocytosis 1+ Sodium Level 141 Potassium Level 3.4 L Chloride Level 104 Carbon Dioxide Level 26 Anion Gap 14 Blood Urea Nitrogen 69 H Creatinine 2.01 H Glucose Level 158 Calcium Level 8.0 L Phosphorus Level 4.0 Magnesium Level 2.0 Test 05/05/17 11:54 Bedside Glucose 138 Medications Medications Current Medications Aspirin (Aspirin) 325 mg DAILY NGT Last administered on 04/30/17t 08:43; Admin Dose 325 MG; Start 04/12/17 at 09:00; Status Future Hold Metoprolol Tartrate (Lopressor) 5 mg Q4H PRN IV HR>110 Hold SBP<110 Last administered on 04/20/17 17:36; Admin Dose 5 MG; Start 04/11/17 at 13:30 Miscellaneous Information 1 ea NOTE XX ; Start 04/11/17 at 16:30 Glucose (Glutose) 15 gm Q15M PRN PO DECREASED GLUCOSE; Start 04/11/17 at 16:30 Glucose (Glutose) 22.5 gm Q15M PRN PO DECREASED GLUCOSE; Start 04/11/17 at 16: 30 Dextrose (D50w Syringe) 25 ml Q15M PRN IV DECREASED GLUCOSE Last administered on 04/12/17 23:56; Admin Dose 25 ML; Start 04/11/17 at 16:30 Dextrose (D50w Syringe) 50 ml Q15M PRN IV DECREASED GLUCOSE; Start 04/11/17 at 16:30 Glucagon (Glucagen) 1 mg Q15M PRN IM DECREASED GLUCOSE; Start 04/11/17 at 16:30 Glucose (Glutose) 15 gm Q15M PRN BUCCAL DECREASED GLUCOSE; Start 04/11/17 at 16 :30 Metoclopramide HCl (Reglan) 10 mg Q6 IV Last administered on 05/05/17 11:52; Admin Dose 10 MG; Start 04/12/17 at 18:00 Insulin Aspart (Novolog Insulin Pen) NOVOLOG *MILD* ALGORI... Q6H SC Last administered on 05/05/17 06:27; Admin Dose 1 UNIT; Start 04/15/17 at 00:00 IV Flush (NS 10 ml) 10 ml PRN PRN IV FLUSH LINE; Start 04/15/17 at 13:00 Amiodarone HCl (Cordarone) 200 mg BID GTB Last administered on 05/04/17 23:21 ; Admin Dose 200 MG; Start 04/16/17 at 13:00 Heparin Sodium (Porcine) (Heparin (5000 Units/0.5 ml)) 5,000 unit BID SC Last administered on 04/30/17 21:03; Admin Dose 5,000 UNIT; Start 04/18/17 at 16:22; Status Future Hold Citalopram Hydrobromide (Celexa) 20 mg DAILY NGT Last administered on 08:57; Admin Dose 20 MG; Start 04/19/17 at 09:00 Hydralazine HCl 20 mg 20 mg Q6H PRN IV sbp ABOVE 160 Last administered on 12:43; Admin Dose 20 MG; Start 04/18/17 at 18:30 Caspofungin/ Sodium Chloride (Cancidas/NS) 250 ml @ 250 mls/hr Q24H IV Last administered on 05/05/17 10:44; Admin Dose 250 MLS/HR; Start 04/21/17 at 10:00 Chlorhexidine Gluconate (Peridex) 15 ml BID MT Last administered on 05/05/17 08:56; Admin Dose 15 ML; Start 04/22/17 at 21:00 Vitamin A/Vitamin D (Vitamin A & D Oint) 1 applic TID TOP Last administered on 05/05/17 15:02; Admin Dose 1 APPLIC; Start 04/22/17 at 21:00 Vitamin A/Vitamin D (Vitamin A & D Oint) 1 applic TID PRN TOP DRYNESS Last administered on 04/22/17 15:29; Admin Dose 1 APPLIC; Start 04/22/17 at 15:00 Acetaminophen/ Hydrocodone Bitart ([place] (5/325)) 1 tab Q6H GTB Last administered on 05/05/17 09:06; Admin Dose 1 TAB; Start 04/22/17 at 21:30 Spironolactone (Aldactone) 25 mg DAILY NGT Last administered on 04/30/17 08:43 ; Admin Dose 25 MG; Start 04/25/17 at 19:00; Status Future Hold Diltiazem HCl 5 mg 5 mg Q1H PRN IV HEART RATE GREATER THAN 120 Last administered on 04/29/17 06:17; Admin Dose 5 MG; Start 04/29/17 at 05:00 Meropenem/Sodium Chloride (Merrem 500mg/50 ml(Pmx)) 50 ml @ 200 mls/hr Q12 IVPB Last administered on 05/05/17 09:06; Admin Dose 200 MLS/HR; Start at 12:00 Metoprolol Tartrate (Lopressor) 25 mg BID GTB Last administered on 05/04/17 23 :20; Admin Dose 25 MG; Start 04/30/17 at 21:00; Status Future hold Valacyclovir HCl (Valtrex) 500 mg BID GTB Last administered on 05/05/17 08:57 ; Admin Dose 500 MG; Start 04/30/17 at 21:00; Stop 05/05/17 at 23:59 Metronidazole 500 mg 500 mg Q8 GTB Last administered on 05/05/17 15:03; Admin Dose 500 MG; Start 04/30/17 at 22:00 Dopamine HCl/ Dextrose 250 ml @ 4.875 mls/ hr TITRATE IV Last administered on 05/01/17 07:07; Admin Dose 48.75 MLS/HR; Start 05/01/17 at 02:30 Vasopressin 60 unit/Dextrose 60 ml @ 1.2 mls/hr Q12H IV Last administered on 02:48; Admin Dose 1.2 MLS/HR; Start 05/01/17 at 02:30 Sodium Chloride 1,000 ml @ 0 mls/hr Q0M IV Last administered on 05/01/17 03: 00; Admin Dose 1,000 MLS/HR; Start 05/01/17 at 03:00 Sodium Chloride 1,000 ml @ 0 mls/hr Q0M IV Last administered on 05/01/17 04: 00; Admin Dose 1,000 MLS/HR; Start 05/01/17 at 03:30 Norepinephrine/ Dextrose (Levophed/D5W) 500 ml @ 1.87 mls/hr TITRATE IV Last administered on 05/01/17 10:13; Admin Dose 18.75 MLS/HR; Start 05/01/17 at 08: 00 Pantoprazole 40 mg 40 mg BID@06,18 IV Last administered on 05/05/17 06:06; Admin Dose 40 MG; Start 05/02/17 at 15:00 Diltiazem HCl (Cardizem-D5W 125 Mg/125 ml Drip) 125 ml @ 5 mls/hr TITRATE IV Last administered on 05/02/17 19:11; Admin Dose 5 MLS/HR; Start 05/02/17 at 19: 00 Furosemide (Lasix) 80 mg Q12 IV Last administered on 05/04/17 20:14; Admin Dose 80 MG; Start 05/03/17 at 09:00 Hydrocortisone (Solu-Cortef) 100 mg BID IV Last administered on 05/05/17 08:56 ; Admin Dose 100 MG; Start 05/04/17 at 21:00 Valacyclovir HCl (Valtrex) 1,000 mg DAILY GTB ; Start 05/06/17 at 09:00 ALYSSA THOMPSON MD May 05, 2017 16:12
--- NOTE | 2017-05-05 17:13 | PN ---
Date/Time of Note Date/Time of Note DATE: 05/05/17 TIME: 17:12 Assessment/Plan VTE Prophylaxis VTE Prophylaxis Intervention: other Lines/Catheters IV [facility] marguerite Urinary Cath still in place: Yes Reason Cath still needed: other (indicate) Assessment/Plan Chief Complaint/Hosp Course 1. acute on chronic hypoxemic respiratory failure: 2. NSTEMI: due to demand ischemia. 3. CHF/ fluid overload: due to diastolic heart failure 4. moderate 5. Arrhythmia and P afib, frequent PVC: 6. ANEMIA 7. pneumonia, severe leukocytosis now. 8. sepsis and shock: BACK ON 3 pressors now 9. Anasarca 10. s/p cardiopulm arrest due to resp failure 11. renal failure 12. coagulopathy Rec: off of ASA due to active bleeding and severe anemia and coagulopathy. resp care as per PULM Team. correct lytes prn. cont ICU care. betablocker as tolerated. cardizem IV prn . thyroid supplement . will closely monitor in ICU. HD as per renal. transfuse prn Problems: Subjective 24 Hr Interval Summary Free Text/Dictation CARDIOLOGY FOLLOW UP/ critical care note: D/W staff , rhythm was reviewed. pt has remained in NSR . s/p HD and tolerated it well pt still s/p trach on vent Objective: General: s/p trach on vent HEENT: NC/AT. . oropharynx with old blood and multiple lesions. . NECK: NO JVD. no stridor. s/p trach on vent CV: RRR. systolic ejection murmur; no gallop or rubs. PULM: + diffuse rhonchi. GI: SOFT, NT, ND, no rebound or guarding s/p PEG Extremity: 3+ B/L LE edema. no clubbing. neuro: opens her eye Psych: calm rectal: deferred Derm: multiple echymosis Exam/Review of Systems Vital Signs Vitals Vital Signs Date Time Temp Pulse Resp B/P Pulse Ox O2 Delivery O2 Flow Rate FiO2 05/05/17 16:00 90 05/05/17 16:00 98.4 24 159/88 100 Mechanical Ventilator 05/05/17 15:18 35 Intake and Output 05/04/17 05/04/17 05/05/17 15:00 23:00 07:00 Intake Total 1480 ml 600 ml 1350 ml Output Total 90 ml 1450 ml 200 ml Balance 1390 ml -850 ml 1150 ml Results Result Diagram: 05/05/17 0415 05/05/17 0415 Results 24 hrs Laboratory Tests Test 05/04/17 19:08 05/04/17 23:18 05/05/17 04:15 05/05/17 05:57 Bedside Glucose 157 155 152 White Blood Count 20.8 H Red Blood Count 3.04 L Hemoglobin 9.0 L Hematocrit 27.2 L Mean Corpuscular Volume 89.5 Mean Corpuscular Hemoglobin 29.6 Mean Corpuscular Hemoglobin Concent 33.1 Red Cell Distribution Width 20.5 H Platelet Count 105 L Mean Platelet Volume 13.2 H Neutrophils % 91.1 H Segmented Neutrophils % (Manual) 93 H Band Neutrophils % (Manual) 1 Lymphocytes % 3.1 L Lymphocytes % (Manual) 3 L Monocytes % 3.6 Monocytes % (Manual) 2 Eosinophils % 0.0 Basophils % 0.2 Metamyelocytes % (manual) 1 H Nucleated Red Blood Cells % 0.1 H Neutrophils # 19.0 H Neutrophils # (Manual) 19.4 H Band Neutrophils # 0.2 Absolute Lymphocytes (Manual) 0.6 L Lymphocytes # 0.6 L Monocytes # 0.8 Absolute Monocytes (Manual) 0.4 Eosinophils # 0.0 Basophils # 0.0 Metamyelocytes # 0.2 H Nucleated Red Blood Cells # 0.0 Smudge Cells % 1 H Platelet Estimate DECREASED Polychromasia 3+ Anisocytosis 2+ Microcytosis 1+ Macrocytosis 1+ Sodium Level 141 Potassium Level 3.4 L Chloride Level 104 Carbon Dioxide Level 26 Anion Gap 14 Blood Urea Nitrogen 69 H Creatinine 2.01 H Glucose Level 158 Calcium Level 8.0 L Phosphorus Level 4.0 Magnesium Level 2.0 Test 05/05/17 11:54 Bedside Glucose 138 Medications Medications Current Medications Aspirin (Aspirin) 325 mg DAILY NGT Last administered on 04/30/17 08:43; Admin Dose 325 MG; Start 04/12/17 at 09:00; Status Future Hold Metoprolol Tartrate (Lopressor) 5 mg Q4H PRN IV HR>110 Hold SBP<110 Last administered on 04/20/17 17:36; Admin Dose 5 MG; Start 04/11/17 at 13:30 Miscellaneous Information 1 ea NOTE XX ; Start 04/11/17 at 16:30 Glucose (Glutose) 15 gm Q15M PRN PO DECREASED GLUCOSE; Start 04/11/17 at 16:30 Glucose (Glutose) 22.5 gm Q15M PRN PO DECREASED GLUCOSE; Start 04/11/17 at 16: 30 Dextrose (D50w Syringe) 25 ml Q15M PRN IV DECREASED GLUCOSE Last administered on 04/12/17 23:56; Admin Dose 25 ML; Start 04/11/17 at 16:30 Dextrose (D50w Syringe) 50 ml Q15M PRN IV DECREASED GLUCOSE; Start 04/11/17 at 16:30 Glucagon (Glucagen) 1 mg Q15M PRN IM DECREASED GLUCOSE; Start 04/11/17 at 16:30 Glucose (Glutose) 15 gm Q15M PRN BUCCAL DECREASED GLUCOSE; Start 04/11/17 at 16 :30 Metoclopramide HCl (Reglan) 10 mg Q6 IV Last administered on 05/05/17 11:52; Admin Dose 10 MG; Start 04/12/17 at 18:00 Insulin Aspart (Novolog Insulin Pen) NOVOLOG *MILD* ALGORI... Q6H SC Last administered on 05/05/17 06:27; Admin Dose 1 UNIT; Start 04/15/17 at 00:00 IV Flush (NS 10 ml) 10 ml PRN PRN IV FLUSH LINE; Start 04/15/17 at 13:00 Amiodarone HCl (Cordarone) 200 mg BID GTB Last administered on 05/04/17 23:21 ; Admin Dose 200 MG; Start 04/16/17 at 13:00 Heparin Sodium (Porcine) (Heparin (5000 Units/0.5 ml)) 5,000 unit BID SC Last administered on 04/30/17 21:03; Admin Dose 5,000 UNIT; Start 04/18/17 at 16:22; Status Future Hold Citalopram Hydrobromide (Celexa) 20 mg DAILY NGT Last administered on 08:57; Admin Dose 20 MG; Start 04/19/17 at 09:00 Hydralazine HCl 20 mg 20 mg Q6H PRN IV sbp ABOVE 160 Last administered on 12:43; Admin Dose 20 MG; Start 04/18/17 at 18:30 Caspofungin/ Sodium Chloride (Cancidas/NS) 250 ml @ 250 mls/hr Q24H IV Last administered on 05/05/17 10:44; Admin Dose 250 MLS/HR; Start 04/21/17 at 10:00 Chlorhexidine Gluconate (Peridex) 15 ml BID MT Last administered on 05/05/17 08:56; Admin Dose 15 ML; Start 04/22/17 at 21:00 Vitamin A/Vitamin D (Vitamin A & D Oint) 1 applic TID TOP Last administered on 05/05/17 15:02; Admin Dose 1 APPLIC; Start 04/22/17 at 21:00 Vitamin A/Vitamin D (Vitamin A & D Oint) 1 applic TID PRN TOP DRYNESS Last administered on 04/22/17 15:29; Admin Dose 1 APPLIC; Start 04/22/17 at 15:00 Acetaminophen/ Hydrocodone Bitart ([place] (5/325)) 1 tab Q6H GTB Last administered on 05/05/17 16:31; Admin Dose 1 TAB; Start 04/22/17 at 21:30 Spironolactone (Aldactone) 25 mg DAILY NGT Last administered on 04/30/17 08:43 ; Admin Dose 25 MG; Start 04/25/17 at 19:00; Status Future Hold Diltiazem HCl 5 mg 5 mg Q1H PRN IV HEART RATE GREATER THAN 120 Last administered on 04/29/17 06:17; Admin Dose 5 MG; Start 04/29/17 at 05:00 Meropenem/Sodium Chloride (Merrem 500mg/50 ml(Pmx)) 50 ml @ 200 mls/hr Q12 IVPB Last administered on 05/05/17 09:06; Admin Dose 200 MLS/HR; Start at 12:00 Metoprolol Tartrate (Lopressor) 25 mg BID GTB Last administered on 05/04/17 23 :20; Admin Dose 25 MG; Start 04/30/17 at 21:00; Status Future hold Valacyclovir HCl (Valtrex) 500 mg BID GTB Last administered on 05/05/17 08:57 ; Admin Dose 500 MG; Start 04/30/17 at 21:00; Stop 05/05/17 at 23:59 Metronidazole 500 mg 500 mg Q8 GTB Last administered on 05/05/17 15:03; Admin Dose 500 MG; Start 04/30/17 at 22:00 Dopamine HCl/ Dextrose 250 ml @ 4.875 mls/ hr TITRATE IV Last administered on 05/01/17 07:07; Admin Dose 48.75 MLS/HR; Start 05/01/17 at 02:30 Vasopressin 60 unit/Dextrose 60 ml @ 1.2 mls/hr Q12H IV Last administered on 02:48; Admin Dose 1.2 MLS/HR; Start 05/01/17 at 02:30 Sodium Chloride 1,000 ml @ 0 mls/hr Q0M IV Last administered on 05/01/17 03: 00; Admin Dose 1,000 MLS/HR; Start 05/01/17 at 03:00 Sodium Chloride 1,000 ml @ 0 mls/hr Q0M IV Last administered on 05/01/17 04: 00; Admin Dose 1,000 MLS/HR; Start 05/01/17 at 03:30 Norepinephrine/ Dextrose (Levophed/D5W) 500 ml @ 1.87 mls/hr TITRATE IV Last administered on 05/01/17 10:13; Admin Dose 18.75 MLS/HR; Start 05/01/17 at 08: 00 Pantoprazole 40 mg 40 mg BID@06,18 IV Last administered on 05/05/17 06:06; Admin Dose 40 MG; Start 05/02/17 at 15:00 Diltiazem HCl (Cardizem-D5W 125 Mg/125 ml Drip) 125 ml @ 5 mls/hr TITRATE IV Last administered on 05/02/17 19:11; Admin Dose 5 MLS/HR; Start 05/02/17 at 19: 00 Furosemide (Lasix) 80 mg Q12 IV Last administered on 05/04/17 20:14; Admin Dose 80 MG; Start 05/03/17 at 09:00 Hydrocortisone (Solu-Cortef) 100 mg BID IV Last administered on 05/05/17 08:56 ; Admin Dose 100 MG; Start 05/04/17 at 21:00 Valacyclovir HCl (Valtrex) 1,000 mg DAILY GTB ; Start 05/06/17 at 09:00 FRANCISCO BLACKWOOD MD May 05, 2017 17:13
[2017-05-06] VITALS (46 sets, daily range): BP systolic 91–183; BP diastolic 63–107; PULSE 79–100; RESP 0–31
[2017-05-06] MEDS: LEVALBUTEROL (HFA) 15 GM INHALER INH SCH ×4 (01:46→19:06)
[2017-05-06] MEDS: VASOPRESSIN 60 UNIT in DEXTROSE 5% 57 ML IV SCH ×2 (02:30→14:30)
[2017-05-06] MEDS: HYDROCODONE/APAP (5/325) TAB GTB SCH ×4 (03:30→20:49)
[2017-05-06] MEDS: metroNIDAZOLE 500 MG TAB GTB SCH ×3 (05:26→20:52)
[2017-05-06] MEDS: LEVOTHYROXINE 75 MCG TAB GTB SCH (05:26)
[2017-05-06] MEDS: METOCLOPRAMIDE 10 MG INJ IV SCH ×4 (05:26→17:34)
[2017-05-06] MEDS: PANTOPRAZOLE 40 MG INJ IV SCH ×2 (05:26→17:34)
[2017-05-06] MEDS: INSULIN ASPART [NOVOLOG] 3 ML PEN SC SCH ×4 (06:00→17:33)
--- NOTE | 2017-05-06 08:24 | PN ---
Date/Time of Note Date/Time of Note DATE: 05/06/17 TIME: 08:21 Assessment/Plan VTE Prophylaxis VTE Prophylaxis Intervention: other Lines/Catheters IV Catheter Type (from Nrsg): marguerite Urinary Cath still in place: Yes Reason Cath still needed: other (indicate) Assessment/Plan Chief Complaint/Hosp Course 1. Status post code arrest -Etiology secondary to sepsis, hypoxemic failure -Patient was coded 30 minutes with spontaneous return of circulation We will continue to monitor 2. Ventilator dependent respiratory failure status post trach -ABG chest x-ray reviewed -We will follow-up with pulmonary, 2. nonoliguric Kenrick. With previously normal baseline creatinine. Etiology is likely secondary to septic KENRICK, ATN -Patient was initiated on dialysis due to significant volume overload and worsening renal failure Patient tolerated dialysis well Plan for daily dialysis for side clearance and volume removal - 3. Hyperkalemia secondary to acute kidney injury acidemia Improved Continue to monitor 3. Sepsis status post shock Etiology secondary to aspiration pneumonia, fungemia Patient is on broad-spectrum antibiotics, antifungals, - Patient's blood cultures have been reviewed. - Continue current treatment plan Follow-up with infectious disease 4. Volume overload. Etiology likely secondary to sepsis capillary leak, diastolic heart failure. -Continue dialysis and volume removal 6. History of adrenal insufficiency. -Patient currently on stress steroids, -Appreciate endocrinology evaluation 7. Acute encephalopathy etiologies toxic metabolic, possible anoxic injury. Mental status is improving, patient following commands CT scan showed no acute finding Appreciate Dr. Ellis evaluation -Continue to monitor closely 8. Hypernatremia Resolved 9. Hypothyroidism continue Synthroid 10. Anemia with GI bleed Status post EGD with cauterization of fundal bleed HEENT H&H levels have been stable continue to monitor Continue PPI Appreciate GIs help with management 11. Mineral bone disorder will monitor calcium phosphorus levels 12. h/o tongue cancer with resection 13. History of diastolic heart failure/coronary disease -Continue medical management 14. Leukocytosis. -Etiology is likely secondary sepsis, steroids. -Monitor - Follow-up with infectious disease. 15. Hypomagnesemia. Continue to monitor and replete as needed 16. Left upper extremity DVT. -Hold aspirin heparin in setting of bleed 17. Dysphagia status post PEG Continue tube feeding 18. Arrhythmia Status post amiodarone drip Follow-up with cardio 19. ?cholecystitis -Patient's HIDA scan was positive - cholecystostomy drain was not placed due to insufficient fluid. -No plan for drain placement at this time. I discussed case with general surgery Appreciate surgery's evaluation. 20. 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 Ellis's evaluation Continue supportive care Disposition. Isbell evaluation has been placed. I spent greater than 40 minutes of critical care time with this pt Problems: Subjective 24 Hr Interval Summary Free Text/Dictation Patient seen and examined Remains critical but stable Receiving daily dialysis Exam/Review of Systems Vital Signs Vitals Vital Signs Date Time Temp Pulse Resp B/P Pulse Ox O2 Delivery O2 Flow Rate FiO2 05/06/17 06:00 98 25 164/76 100 05/06/17 05:01 35 05/06/17 04:00 98.1 05/06/17 00:00 Mechanical Ventilator Intake and Output 05/05/17 05/05/17 05/06/17 15:00 23:00 07:00 Intake Total 1250 ml 650 ml 350 ml Output Total 8355 ml 85 ml 170 ml Balance -7105 ml 565 ml 180 ml Exam HEENT: Head is normocephalic, NECK: Supple., Positive trach HEART: Irregular LUNGS: Show diminished breath sounds at base. ABDOMEN: Soft, nontender to palpation without rebound or guarding. Positive G- tube EXTREMITIES: Negative for clubbing, cyanosis. Positive edema/anasarca DERMATOLOGIC: No rashes. MUSCULOSKELETAL: No joint effusions, NEUROLOGIC: No change in exam Results Result Diagram: 05/05/17 0415 05/05/17 0415 Results 24 hrs Laboratory Tests Test 05/05/17 11:54 05/05/17 18:10 05/06/17 04:47 05/06/17 06:17 Bedside Glucose 138 154 129 Magnesium Level 2.1 Digoxin Level < 0.4 L Medications Medications Current Medications Aspirin (Aspirin) 325 mg DAILY NGT Last administered on 04/30/17 08:43; Admin Dose 325 MG; Start 04/12/17 at 09:00; Status Future Hold Metoprolol Tartrate (Lopressor) 5 mg Q4H PRN IV HR>110 Hold SBP<110 Last administered on 04/20/17 17:36; Admin Dose 5 MG; Start 04/11/17 at 13:30 Miscellaneous Information 1 ea NOTE XX ; Start 04/11/17 at 16:30 Glucose (Glutose) 15 gm Q15M PRN PO DECREASED GLUCOSE; Start 04/11/17 at 16:30 Glucose (Glutose) 22.5 gm Q15M PRN PO DECREASED GLUCOSE; Start 04/11/17 at 16: 30 Dextrose (D50w Syringe) 25 ml Q15M PRN IV DECREASED GLUCOSE Last administered on 04/12/17 23:56; Admin Dose 25 ML; Start 04/11/17 at 16:30 Dextrose (D50w Syringe) 50 ml Q15M PRN IV DECREASED GLUCOSE; Start 04/11/17 at 16:30 Glucagon (Glucagen) 1 mg Q15M PRN IM DECREASED GLUCOSE; Start 04/11/17 at 16:30 Glucose (Glutose) 15 gm Q15M PRN BUCCAL DECREASED GLUCOSE; Start 04/11/17 at 16 :30 Metoclopramide HCl (Reglan) 10 mg Q6 IV Last administered on 05/06/17 05:26; Admin Dose 10 MG; Start 04/12/17 at 18:00 Insulin Aspart (Novolog Insulin Pen) NOVOLOG *MILD* ALGORI... Q6H SC Last administered on 05/05/17 18:43; Admin Dose 1 UNIT; Start 04/15/17 at 00:00 IV Flush (NS 10 ml) 10 ml PRN PRN IV FLUSH LINE; Start 04/15/17 at 13:00 Amiodarone HCl (Cordarone) 200 mg BID GTB Last administered on 05/05/17 20:36 ; Admin Dose 200 MG; Start 04/16/17 at 13:00 Heparin Sodium (Porcine) (Heparin (5000 Units/0.5 ml)) 5,000 unit BID SC Last administered on 04/30/17 21:03; Admin Dose 5,000 UNIT; Start 04/18/17 at 16:22; Status Future Hold Citalopram Hydrobromide (Celexa) 20 mg DAILY NGT Last administered on 08:57; Admin Dose 20 MG; Start 04/19/17 at 09:00 Hydralazine HCl 20 mg 20 mg Q6H PRN IV sbp ABOVE 160 Last administered on 12:43; Admin Dose 20 MG; Start 04/18/17 at 18:30 Caspofungin/ Sodium Chloride (Cancidas/NS) 250 ml @ 250 mls/hr Q24H IV Last administered on 05/05/17 10:44; Admin Dose 250 MLS/HR; Start 04/21/17 at 10:00 Chlorhexidine Gluconate (Peridex) 15 ml BID MT Last administered on 05/05/17 21:00; Admin Dose 15 ML; Start 04/22/17 at 21:00 Vitamin A/Vitamin D (Vitamin A & D Oint) 1 applic TID TOP Last administered on 05/05/17 21:00; Admin Dose 1 APPLIC; Start 04/22/17 at 21:00 Vitamin A/Vitamin D (Vitamin A & D Oint) 1 applic TID PRN TOP DRYNESS Last administered on 04/22/17 15:29; Admin Dose 1 APPLIC; Start 04/22/17 at 15:00 Acetaminophen/ Hydrocodone Bitart ([place] (5/325)) 1 tab Q6H GTB Last administered on 05/06/17 03:30; Admin Dose 1 TAB; Start 04/22/17 at 21:30 Spironolactone (Aldactone) 25 mg DAILY NGT Last administered on 04/30/17 08:43 ; Admin Dose 25 MG; Start 04/25/17 at 19:00; Status Future Hold Diltiazem HCl 5 mg 5 mg Q1H PRN IV HEART RATE GREATER THAN 120 Last administered on 04/29/17 06:17; Admin Dose 5 MG; Start 04/29/17 at 05:00 Meropenem/Sodium Chloride (Merrem 500mg/50 ml(Pmx)) 50 ml @ 200 mls/hr Q12 IVPB Last administered on 05/05/17 21:00; Admin Dose 200 MLS/HR; Start at 12:00 Metoprolol Tartrate (Lopressor) 25 mg BID GTB Last administered on 05/05/17 20 :41; Admin Dose 25 MG; Start 04/30/17 at 21:00; Status Future hold Metronidazole 500 mg 500 mg Q8 GTB Last administered on 05/06/17 05:26; Admin Dose 500 MG; Start 04/30/17 at 22:00 Dopamine HCl/ Dextrose 250 ml @ 4.875 mls/ hr TITRATE IV Last administered on 05/01/17 07:07; Admin Dose 48.75 MLS/HR; Start 05/01/17 at 02:30 Vasopressin 60 unit/Dextrose 60 ml @ 1.2 mls/hr Q12H IV Last administered on 02:48; Admin Dose 1.2 MLS/HR; Start 05/01/17 at 02:30 Sodium Chloride 1,000 ml @ 0 mls/hr Q0M IV Last administered on 05/01/17 03: 00; Admin Dose 1,000 MLS/HR; Start 05/01/17 at 03:00 Sodium Chloride 1,000 ml @ 0 mls/hr Q0M IV Last administered on 05/01/17 04: 00; Admin Dose 1,000 MLS/HR; Start 05/01/17 at 03:30 Norepinephrine/ Dextrose (Levophed/D5W) 500 ml @ 1.87 mls/hr TITRATE IV Last administered on 05/01/17 10:13; Admin Dose 18.75 MLS/HR; Start 05/01/17 at 08: 00 Pantoprazole 40 mg 40 mg BID@06,18 IV Last administered on 05/06/17 05:26; Admin Dose 40 MG; Start 05/02/17 at 15:00 Diltiazem HCl (Cardizem-D5W 125 Mg/125 ml Drip) 125 ml @ 5 mls/hr TITRATE IV Last administered on 05/02/17 19:11; Admin Dose 5 MLS/HR; Start 05/02/17 at 19: 00 Furosemide (Lasix) 80 mg Q12 IV Last administered on 05/05/17 20:36; Admin Dose 40 MG; Start 05/03/17 at 09:00 Hydrocortisone (Solu-Cortef) 100 mg BID IV Last administered on 05/05/17 20:37 ; Admin Dose 100 MG; Start 05/04/17 at 21:00 Valacyclovir HCl (Valtrex) 1,000 mg DAILY GTB ; Start 05/06/17 at 09:00 NINA MACIEL DO May 06, 2017 08:24
--- NOTE | 2017-05-06 08:32 | OPR ---
DATE OF OPERATION: PREOPERATIVE DIAGNOSIS: renal failure. POSTOPERATIVE DIAGNOSIS: renal failure. OPERATION PERFORMED: Right thermo hemodialysis catheter. SURGEON: Darian Gonzales MD ANESTHESIA: Local. CONSENT: Risks, benefits, complications, alternatives to therapy have been explained to the patient and family, consent obtained. OPERATIVE PROCEDURE: The patient was placed in supine position, prepped and draped in the usual sterile fashion. Lidocaine 1% was used throughout the operation for local anesthesia. Access was gained in the right common femoral vein. Guidewire was advanced through without any difficulty. Subcutaneous tissue dialated. 20 cm dialysis catheter advanced over the guidewire and secured to the skin using silk sutures. Both ports of the catheter were aspirated and injected using saline solution. Patient tolerated the procedure well. Dictated By: Darian Gonzales MD /[email or web address]/ss /Document#: [id number]
[2017-05-06] MEDS: CITALOPRAM 20 MG TAB NGT SCH (09:20)
[2017-05-06] MEDS: CHLORHEXIDINE GLUCONATE 15 ML UD CUP MT SCH ×2 (09:20→20:52)
[2017-05-06] MEDS: VALACYCLOVIR 500 MG TAB GTB SCH (09:20)
[2017-05-06] MEDS: METOPROLOL 25 MG TAB GTB SCH ×2 (09:21→20:50)
[2017-05-06] MEDS: HYDROCORTISONE 100 MG INJ IV SCH ×2 (09:21→20:48)
[2017-05-06] MEDS: FUROSEMIDE 40 MG INJ IV SCH ×2 (09:21→20:48)
[2017-05-06] MEDS: VITAMIN A & D 5 GM OINT PACKET TOP SCH ×3 (09:21→20:49)
[2017-05-06] MEDS: AMIODARONE 200 MG TAB GTB SCH ×2 (09:24→20:56)
[2017-05-06] MEDS: MEROPENEM 500MG/50 ML (PMX) 50 ML IVPB SCH ×2 (09:24→20:52)
[2017-05-06 09:46] LABS: CALCIUM 9.1 mg/dl (8.4-10.2); CREATININE 1.77 mg/dl (0.44-1.00); POTASSIUM 3.4 mmol/L (3.5-5.1)
[2017-05-06 09:51] LABS: MAGNESIUM 2.1 mg/dl (1.7-2.5); PHOSPHORUS 3.5 mg/dl (2.5-4.9)
[2017-05-06 10:03] LABS: ABNORMAL IP MESSAGE 1; HEMATOCRIT 29.7 % (37.0-47.0); HEMOGLOBIN 9.7 g/dl (12.0-16.0); MEAN CORPUSCULAR HEMOGLOBIN 29.9 pg (29.0-33.0); MEAN CORPUSCULAR HGB CONC 32.7 g/dl (32.0-37.0); MEAN CORPUSCULAR VOLUME 91.7 fl (82.0-101.0); MEAN PLATELET VOLUME 13.8 fl (7.4-10.4); PLATELET COUNT 99 10^3/UL (140-415); RED BLOOD COUNT 3.24 10^6/ul (4.20-5.40); RED CELL DISTRIBUTION WIDTH 20.1 % (11.5-14.5); WHITE BLOOD COUNT 34.5 10^3/ul (4.8-10.8)
[2017-05-06 10:04] LABS: POSITIVE DIFF @See below
--- NOTE | 2017-05-06 10:55 | CONS ---
Date/Time of Note Date/Time of Note DATE: 05/06/17 TIME: 10:47 Consult Date/Type/Reason Admit Date/Time Apr 11, 2017 at 11:28 Initial Consult Date 04/12/17 Type of Consultation: Pulmonary Ordering Provider: NINA MACIEL DO Subjective Opens eyes appears comfortable at rest no acute distress. More alert. Objective Vital Signs Date Time Temp Pulse Resp B/P Pulse Ox O2 Delivery O2 Flow Rate FiO2 05/06/17 08:00 97 05/06/17 06:00 25 164/76 100 05/06/17 05:01 35 05/06/17 04:00 98.1 05/06/17 00:00 Mechanical Ventilator Intake and Output 05/05/17 05/05/17 05/06/17 14:59 22:59 06:59 Intake Total 1200 ml 650 ml 400 ml Output Total 8355 ml 55 ml 200 ml Balance -7155 ml 595 ml 200 ml Exam GENERAL: Elderly lady on mechanical ventilation via tracheostomy comfortable no distress VITAL SIGNS: see below. HEENT: Pupils equal, round, and reactive to light. Tracheostomy site clean and intact. CARDIAC: S1, S2, 1/6 systolic ejection murmur CHEST: Diminished air entry bilaterally. ABDOMEN: Mildly distended. Bowel sounds present no guarding or rebound EXTREMITIES: No cyanosis, clubbing edema +2 significant anasarca upper extremities NEUROLOGIC: Generalized weakness Results/Medications Result Diagram: 05/06/17 0447 05/06/17 0447 Results 24 hrs Laboratory Tests Test 05/05/17 11:54 05/05/17 18:10 05/06/17 04:47 05/06/17 06:17 Bedside Glucose 138 154 129 White Blood Count 34.5 #H Red Blood Count 3.24 L Hemoglobin 9.7 L Hematocrit 29.7 L Mean Corpuscular Volume 91.7 Mean Corpuscular Hemoglobin 29.9 Mean Corpuscular Hemoglobin Concent 32.7 Red Cell Distribution Width 20.1 H Platelet Count 99 L Mean Platelet Volume 13.8 H Neutrophils % Lymphocytes % Monocytes % Eosinophils % Basophils % Nucleated Red Blood Cells % 0.0 Neutrophils # Lymphocytes # Monocytes # Eosinophils # Basophils # Nucleated Red Blood Cells # Sodium Level 143 Potassium Level 3.4 L Chloride Level 100 Carbon Dioxide Level 27 Anion Gap 19 H Blood Urea Nitrogen 61 H Creatinine 1.77 H Glucose Level 125 Calcium Level 9.1 Phosphorus Level 3.5 Magnesium Level 2.1 Digoxin Level < 0.4 L Medications Current Medications Aspirin (Aspirin) 325 mg DAILY NGT Last administered on 04/30/17 08:43; Admin Dose 325 MG; Start 04/12/17 at 09:00; Status Future Hold Metoprolol Tartrate (Lopressor) 5 mg Q4H PRN IV HR>110 Hold SBP<110 Last administered on 04/20/17 17:36; Admin Dose 5 MG; Start 04/11/17 at 13:30 Miscellaneous Information 1 ea NOTE XX ; Start 04/11/17 at 16:30 Glucose (Glutose) 15 gm Q15M PRN PO DECREASED GLUCOSE; Start 04/11/17 at 16:30 Glucose (Glutose) 22.5 gm Q15M PRN PO DECREASED GLUCOSE; Start 04/11/17 at 16: 30 Dextrose (D50w Syringe) 25 ml Q15M PRN IV DECREASED GLUCOSE Last administered on 04/12/17 23:56; Admin Dose 25 ML; Start 04/11/17 at 16:30 Dextrose (D50w Syringe) 50 ml Q15M PRN IV DECREASED GLUCOSE; Start 04/11/17 at 16:30 Glucagon (Glucagen) 1 mg Q15M PRN IM DECREASED GLUCOSE; Start 04/11/17 at 16:30 Glucose (Glutose) 15 gm Q15M PRN BUCCAL DECREASED GLUCOSE; Start 04/11/17 at 16 :30 Metoclopramide HCl (Reglan) 10 mg Q6 IV Last administered on 05/06/17 05:26; Admin Dose 10 MG; Start 04/12/17 at 18:00 Insulin Aspart (Novolog Insulin Pen) NOVOLOG *MILD* ALGORI... Q6H SC Last administered on 05/05/17 18:43; Admin Dose 1 UNIT; Start 04/15/17 at 00:00 IV Flush (NS 10 ml) 10 ml PRN PRN IV FLUSH LINE; Start 04/15/17 at 13:00 Amiodarone HCl (Cordarone) 200 mg BID GTB Last administered on 05/06/17 09:24 ; Admin Dose 200 MG; Start 04/16/17 at 13:00 Heparin Sodium (Porcine) (Heparin (5000 Units/0.5 ml)) 5,000 unit BID SC Last administered on 04/30/17 21:03; Admin Dose 5,000 UNIT; Start 04/18/17 at 16:22; Status Future Hold Citalopram Hydrobromide (Celexa) 20 mg DAILY NGT Last administered on 09:20; Admin Dose 20 MG; Start 04/19/17 at 09:00 Hydralazine HCl 20 mg 20 mg Q6H PRN IV sbp ABOVE 160 Last administered on 12:43; Admin Dose 20 MG; Start 04/18/17 at 18:30 Caspofungin/ Sodium Chloride (Cancidas/NS) 250 ml @ 250 mls/hr Q24H IV Last administered on 05/05/17 10:44; Admin Dose 250 MLS/HR; Start 04/21/17 at 10:00 Chlorhexidine Gluconate (Peridex) 15 ml BID MT Last administered on 05/06/17 09:20; Admin Dose 15 ML; Start 04/22/17 at 21:00 Vitamin A/Vitamin D (Vitamin A & D Oint) 1 applic TID TOP Last administered on 05/06/17 09:21; Admin Dose 1 APPLIC; Start 04/22/17 at 21:00 Vitamin A/Vitamin D (Vitamin A & D Oint) 1 applic TID PRN TOP DRYNESS Last administered on 04/22/17 15:29; Admin Dose 1 APPLIC; Start 04/22/17 at 15:00 Acetaminophen/ Hydrocodone Bitart ([place] (5/325)) 1 tab Q6H GTB Last administered on 05/06/17 09:20; Admin Dose 1 TAB; Start 04/22/17 at 21:30 Spironolactone (Aldactone) 25 mg DAILY NGT Last administered on 04/30/17 08:43 ; Admin Dose 25 MG; Start 04/25/17 at 19:00; Status Future Hold Diltiazem HCl 5 mg 5 mg Q1H PRN IV HEART RATE GREATER THAN 120 Last administered on 04/29/17 06:17; Admin Dose 5 MG; Start 04/29/17 at 05:00 Meropenem/Sodium Chloride (Merrem 500mg/50 ml(Pmx)) 50 ml @ 200 mls/hr Q12 IVPB Last administered on 05/06/17 09:24; Admin Dose 200 MLS/HR; Start at 12:00 Metoprolol Tartrate (Lopressor) 25 mg BID GTB Last administered on 05/06/17 09 :21; Admin Dose 25 MG; Start 04/30/17 at 21:00; Status Future hold Metronidazole 500 mg 500 mg Q8 GTB Last administered on 05/06/17 05:26; Admin Dose 500 MG; Start 04/30/17 at 22:00 Dopamine HCl/ Dextrose 250 ml @ 4.875 mls/ hr TITRATE IV Last administered on 05/01/17 07:07; Admin Dose 48.75 MLS/HR; Start 05/01/17 at 02:30 Vasopressin 60 unit/Dextrose 60 ml @ 1.2 mls/hr Q12H IV Last administered on 02:48; Admin Dose 1.2 MLS/HR; Start 05/01/17 at 02:30 Sodium Chloride 1,000 ml @ 0 mls/hr Q0M IV Last administered on 05/01/17 03: 00; Admin Dose 1,000 MLS/HR; Start 05/01/17 at 03:00 Sodium Chloride 1,000 ml @ 0 mls/hr Q0M IV Last administered on 05/01/17 04: 00; Admin Dose 1,000 MLS/HR; Start 05/01/17 at 03:30 Norepinephrine/ Dextrose (Levophed/D5W) 500 ml @ 1.87 mls/hr TITRATE IV Last administered on 05/01/17 10:13; Admin Dose 18.75 MLS/HR; Start 05/01/17 at 08: 00 Pantoprazole 40 mg 40 mg BID@06,18 IV Last administered on 05/06/17 05:26; Admin Dose 40 MG; Start 05/02/17 at 15:00 Diltiazem HCl (Cardizem-D5W 125 Mg/125 ml Drip) 125 ml @ 5 mls/hr TITRATE IV Last administered on 05/02/17 19:11; Admin Dose 5 MLS/HR; Start 05/02/17 at 19: 00 Furosemide (Lasix) 80 mg Q12 IV Last administered on 05/06/17 09:21; Admin Dose 80 MG; Start 05/03/17 at 09:00 Hydrocortisone (Solu-Cortef) 100 mg BID IV Last administered on 05/06/17 09:21 ; Admin Dose 100 MG; Start 05/04/17 at 21:00 Valacyclovir HCl (Valtrex) 1,000 mg DAILY GTB Last administered on 05/06/17 09 :20; Admin Dose 1,000 MG; Start 05/06/17 at 09:00 Assessment/Plan Chief Complaint/Hosp Course IMP: 1. Status post septic shock secondary to above likely aspiration pneumonia. Now on mechanical ventilation via tracheostomy. 2. Multifocal pneumonia aspiration vs.HCAP, persistent leukocytosis chest x-ray shows improved lung aeration. 3. Hypercapnic Respiratory Failure--likely due to critical illness now extubated again on nasal cannula 4. Status post lactic acidosis. 5. Demand Ischemia, atrial fibrillation with rapid ventricular rate 6. Cholecystitis stable, not for surgical intervention at present 7. Worsening leukocytosis. Will discuss with infectious disease team. RECS: 1. Continue mechanical ventilation. Continue current ventilator settings 2. Oral care. 3. Aspiration precautions. 4. Continue vasopressors as needed. 5. Continue antibiotics ID recommendations 6. Continue physical therapy 7. Palliative care evaluation Critical care time 40 minutes. Stable for transfer to telemetry, consider Isbell eval Problems: DARWIN CRAWFORD MD, [facility] May 06, 2017 10:55
[2017-05-06 11:00] LABS: ANISOCYTOSIS 1+ (0-0); GIANT THROMBO% (M) 2 % (0-0); MICROCYTOSIS 1+ (0-0); MONOCYTES % (M) 3 % (0-11); PLATELET ESTIMATE DECREASED; POIKILOCYTOSIS 1+ (0-0); POLYCHROMASIA 3+ (0-0)
[2017-05-06] MEDS: CASPOFUNGIN 50 MG in NS 250 ML IV SCH (11:00)
[2017-05-06] MEDS ORDERED: ALBUMIN HUMAN 25% 100 ML IV ONE (13:00)
--- NOTE | 2017-05-06 13:21 | GILP ---
DATE OF PROCEDURE: PROCEDURE PERFORMED: Esophagogastroduodenoscopy with hemostasis. INDICATION: A 66-year-old female undergoing this procedure for upper GI bleeding, manifested in the form of coffee-ground color emesis and G-tube aspirate also was bloody. The patient was on Lovenox. The purpose of this procedure is to identify the source of bleeding and performed therapeutic endoscopy at the same time. DESCRIPTION OF PROCEDURE: The risks of the procedure, related and unrelated complications, anesthetic risks, and alternatives discussed. Informed consent was obtained. The procedure was done bedside. The patient was sedated by the anesthesiologist. Scope was passed as much into the esophagus, which was grossly normal. No varicose vein identified. Z-line was normal. No Steffany-Mcnair tear seen. There was a large quantity of blood covering the mucosal lining. Entered into duodenal. Near the apex of the duodenum, questionable 2 AVMs identified. Whether it was suction induced before entering the second part of true AVM difficult to say. Bile flow was normal. No active bleeding was seen. Stomach mucosa was totally cleaned with a jet of water. No active lesion was identified. Internal stoma behind the balloon also was thoroughly inspected. Retroversion done. Some blood was seen in the fundal area. On antegrade examination, fresh blood was seen in the fundal area. We cleaned it with a jet of water. It was oozing over the large area which was coated with blood. We could not pinpoint out what was the lesion, but definitely to the AVM coated with blood. Both the sites were oozing slowly, so we injected epinephrine. Good blanching was obtained and the bleeding stopped. A total of 8 mL injected submucosally. No bleeding was seen, which was observed for 5 minutes. The scope was removed with good patient tolerance. IMPRESSION: 1. Possible arteriovenous malformation in the fundal area of oozing, stopped with epinephrine injection. 2. Questionable arteriovenous malformation near the apex of the duodenal medial wall. No active bleeding was seen. 3. Somewhat poor prep in the stomach due to the blood coating the entire lining of the stomach. 4. Internal stoma was normal. No ulcer or tumor was identified. PLAN: No antiplatelet agent or blood thinner. Continue present care. We will keep the patient n.p.o. for 1 more day. If no bleeding, we will resume feeding. If the bleeding occurs, then we will re-scope the patient and use APC to cauterize the lesion. Dictated By: Brent Higuera MD /[email or web address] /Document#: [id number]
--- NOTE | 2017-05-06 14:24 | CONS ---
Date/Time of Note Date/Time of Note DATE: 05/06/17 TIME: 14:11 Assessment/Plan Assessment/Plan Chief Complaint/Hosp Course ID PROGRESS NOTE CURRENT ABX +>Cancidas #, MERREM, Flagyl, Valtrex Merrem #14 days-> DC'd 04/26 24H INTERVAL SUMMARY/HOSPITAL COURSE * Pt is resting comfortable on the Vent via TRACH -- HD session commencing. Spouse in room. No fevers, patient required trach placement after successfully EXTUBATED 04/26 afternoon -- spouse tells me last she had recurrent respiratory failure * right femoral Amrit catheter placed on May 04 Bhavya PHYSICAL EXAMINATION: GENERAL: 66 yo F, stable on the Vent HEENT: Atraumatic, (+)Lip crusting lesions healed NECK: (+)Trach in place secure to VENT CHEST: Rise symmetrical w/coarse BS, scattered rales/rhonchi ABDOMEN: Soft, peg EXTREMITIES: Warm, moves extremities ID ASSESSMENT: 66 yo F w/PMHx tongue cancer, chronic trach re-admit [facility] from [facility] with: 1. s/p Acute severe sepsis/shock on admission w/(+)fever, tachycardia, lactic acidosis, leukocytosis, (+)troponin leak = RESOLVED 2. Fungemia => repeat BCx negative 3. Acute respiratory failure = recurrent issue s/p intubation x3rd episode w/ extubation, now with Trach secure to Vent 3. HCAP=> Recurrent Aspiration PNA post emesis // Hx of GNR tracheobronchitis * Sputum 04/21/17 (+)Yeast * 04/06/17 (+)PSAR = MDRO * 04/06/17 (+)Proteus Mirabilis 4. Acute CHF w/elevated BNP 8000 in setting tachycardia, sepsis, pulmonary edema on CXR 5. s/p Nausea w/emesis on admission -> GI on the case * Query: DM Autonomic Gastroparesis * GERD 6. Cholelithiasis w/dilated CBD->HIDA scan (+cholecystitis 04/12/17=> s/p Mansi Drain 04/17/17, no surgery per GI 7. Recent (+)C.Diff on 03/07/16 (treated) w/(-)C.Diff 03/20/17 8. Dysphagia sp PEG placement 9. Paroxysmal Afib 10. NSTEMI in setting sepsis, tachycardia, acute hypoxic respiratory failure, acute CHF exacerbation 11. Elevated glucose - iatrogenic diabetes while on IV steroids 12. Leukocytosis = partial steroids demargination 13. Lip lesions => DDx pressure ulcer from ETT vs HSV ->on Valtrex 14. s/p GIB associates with Acute on chronic anemia secondary to AVM ==> stopped , status post EGD on May 02 with injection of epinephrine (-) MRSA Nares screen (04/03/17) INVASIVES: Trach, PEG, FC, R-FEM Amrit (05/04/17) ABX ALLERGY: Iodine CURRENT ABX: =>Cancidas #, Flagyl, Valtrex, Merrem Merrem #14 total -> DC'd 04/26=> Restarted ID PLAN: * Continue current ABX -- will repeat respiratory cultures * Follow pulm, renal, GI recs . Problems: Consultation Date/Type/Reason Admit Date/Time Apr 11, 2017 at 11:28 Initial Consult Date 04/11/17 Type of Consultation: ID Referring Provider: NINA MACIEL DO Exam/Review of Systems Vital Signs Vitals Vital Signs Date Time Temp Pulse Resp B/P Pulse Ox O2 Delivery O2 Flow Rate FiO2 05/06/17 12:00 87 05/06/17 11:37 25 100 35 05/06/17 06:00 164/76 05/06/17 04:00 98.1 05/06/17 00:00 Mechanical Ventilator Intake and Output 05/05/17 05/05/17 05/06/17 15:00 23:00 07:00 Intake Total 1250 ml 650 ml 350 ml Output Total 8355 ml 85 ml 170 ml Balance -7105 ml 565 ml 180 ml Results Result Diagram: 05/06/17 0447 05/06/17 0447 Results 24 hrs Laboratory Tests Test 05/05/17 18:10 05/06/17 04:47 05/06/17 06:17 05/06/17 13:16 Bedside Glucose 154 129 142 White Blood Count 34.5 #H Red Blood Count 3.24 L Hemoglobin 9.7 L Hematocrit 29.7 L Mean Corpuscular Volume 91.7 Mean Corpuscular Hemoglobin 29.9 Mean Corpuscular Hemoglobin Concent 32.7 Red Cell Distribution Width 20.1 H Platelet Count 99 L Mean Platelet Volume 13.8 H Neutrophils % Segmented Neutrophils % (Manual) 94 H Band Neutrophils % (Manual) 2 Lymphocytes % Lymphocytes % (Manual) 1 L Monocytes % Monocytes % (Manual) 3 Eosinophils % Basophils % Nucleated Red Blood Cells % 0.0 Neutrophils # Neutrophils # (Manual) 32.6 H Band Neutrophils # 0.6 Absolute Lymphocytes (Manual) 0.3 L Lymphocytes # Monocytes # Absolute Monocytes (Manual) 1.0 H Eosinophils # Basophils # Nucleated Red Blood Cells # Smudge Cells % 2 H Thrombocytosis 2 H Platelet Estimate DECREASED Polychromasia 3+ Poikilocytosis 1+ Anisocytosis 1+ Microcytosis 1+ Sodium Level 143 Potassium Level 3.4 L Chloride Level 100 Carbon Dioxide Level 27 Anion Gap 19 H Blood Urea Nitrogen 61 H Creatinine 1.77 H Glucose Level 125 Calcium Level 9.1 Phosphorus Level 3.5 Magnesium Level 2.1 Digoxin Level < 0.4 L Medications Medications Current Medications Aspirin (Aspirin) 325 mg DAILY NGT Last administered on 04/30/17 08:43; Admin Dose 325 MG; Start 04/12/17 at 09:00; Status Future Hold Metoprolol Tartrate (Lopressor) 5 mg Q4H PRN IV HR>110 Hold SBP<110 Last administered on 04/20/17 17:36; Admin Dose 5 MG; Start 04/11/17 at 13:30 Miscellaneous Information 1 ea NOTE XX ; Start 04/11/17 at 16:30 Glucose (Glutose) 15 gm Q15M PRN PO DECREASED GLUCOSE; Start 04/11/17 at 16:30 Glucose (Glutose) 22.5 gm Q15M PRN PO DECREASED GLUCOSE; Start 04/11/17 at 16: 30 Dextrose (D50w Syringe) 25 ml Q15M PRN IV DECREASED GLUCOSE Last administered on 04/12/17 23:56; Admin Dose 25 ML; Start 04/11/17 at 16:30 Dextrose (D50w Syringe) 50 ml Q15M PRN IV DECREASED GLUCOSE; Start 04/11/17 at 16:30 Glucagon (Glucagen) 1 mg Q15M PRN IM DECREASED GLUCOSE; Start 04/11/17 at 16:30 Glucose (Glutose) 15 gm Q15M PRN BUCCAL DECREASED GLUCOSE; Start 04/11/17 at 16 :30 Metoclopramide HCl (Reglan) 10 mg Q6 IV Last administered on 05/06/17 05:26; Admin Dose 10 MG; Start 04/12/17 at 18:00 Insulin Aspart (Novolog Insulin Pen) NOVOLOG *MILD* ALGORI... Q6H SC Last administered on 05/06/17 13:18; Admin Dose 1 UNIT; Start 04/15/17 at 00:00 IV Flush (NS 10 ml) 10 ml PRN PRN IV FLUSH LINE; Start 04/15/17 at 13:00 Amiodarone HCl (Cordarone) 200 mg BID GTB Last administered on 05/06/17 09:24 ; Admin Dose 200 MG; Start 04/16/17 at 13:00 Heparin Sodium (Porcine) (Heparin (5000 Units/0.5 ml)) 5,000 unit BID SC Last administered on 04/30/17 21:03; Admin Dose 5,000 UNIT; Start 04/18/17 at 16:22; Status Future Hold Citalopram Hydrobromide (Celexa) 20 mg DAILY NGT Last administered on 09:20; Admin Dose 20 MG; Start 04/19/17 at 09:00 Hydralazine HCl 20 mg 20 mg Q6H PRN IV sbp ABOVE 160 Last administered on 12:43; Admin Dose 20 MG; Start 04/18/17 at 18:30 Caspofungin/ Sodium Chloride (Cancidas/NS) 250 ml @ 250 mls/hr Q24H IV Last administered on 05/06/17 11:00; Admin Dose 250 MLS/HR; Start 04/21/17 at 10:00 Chlorhexidine Gluconate (Peridex) 15 ml BID MT Last administered on 05/06/17 09:20; Admin Dose 15 ML; Start 04/22/17 at 21:00 Vitamin A/Vitamin D (Vitamin A & D Oint) 1 applic TID TOP Last administered on 05/06/17 13:18; Admin Dose 1 APPLIC; Start 04/22/17 at 21:00 Vitamin A/Vitamin D (Vitamin A & D Oint) 1 applic TID PRN TOP DRYNESS Last administered on 04/22/17 15:29; Admin Dose 1 APPLIC; Start 04/22/17 at 15:00 Acetaminophen/ Hydrocodone Bitart ([place] (5/325)) 1 tab Q6H GTB Last administered on 05/06/17 09:20; Admin Dose 1 TAB; Start 04/22/17 at 21:30 Spironolactone (Aldactone) 25 mg DAILY NGT Last administered on 04/30/17 08:43 ; Admin Dose 25 MG; Start 04/25/17 at 19:00; Status Future Hold Diltiazem HCl 5 mg 5 mg Q1H PRN IV HEART RATE GREATER THAN 120 Last administered on 04/29/17 06:17; Admin Dose 5 MG; Start 04/29/17 at 05:00 Meropenem/Sodium Chloride (Merrem 500mg/50 ml(Pmx)) 50 ml @ 200 mls/hr Q12 IVPB Last administered on 05/06/17 09:24; Admin Dose 200 MLS/HR; Start at 12:00 Metoprolol Tartrate (Lopressor) 25 mg BID GTB Last administered on 05/06/17 09 :21; Admin Dose 25 MG; Start 04/30/17 at 21:00; Status Future hold Metronidazole 500 mg 500 mg Q8 GTB Last administered on 05/06/17 05:26; Admin Dose 500 MG; Start 04/30/17 at 22:00 Dopamine HCl/ Dextrose 250 ml @ 4.875 mls/ hr TITRATE IV Last administered on 05/01/17 07:07; Admin Dose 48.75 MLS/HR; Start 05/01/17 at 02:30 Vasopressin 60 unit/Dextrose 60 ml @ 1.2 mls/hr Q12H IV Last administered on 02:48; Admin Dose 1.2 MLS/HR; Start 05/01/17 at 02:30 Sodium Chloride 1,000 ml @ 0 mls/hr Q0M IV Last administered on 05/01/17 03: 00; Admin Dose 1,000 MLS/HR; Start 05/01/17 at 03:00 Sodium Chloride 1,000 ml @ 0 mls/hr Q0M IV Last administered on 05/01/17 04: 00; Admin Dose 1,000 MLS/HR; Start 05/01/17 at 03:30 Norepinephrine/ Dextrose (Levophed/D5W) 500 ml @ 1.87 mls/hr TITRATE IV Last administered on 05/01/17 10:13; Admin Dose 18.75 MLS/HR; Start 05/01/17 at 08: 00 Pantoprazole 40 mg 40 mg BID@06,18 IV Last administered on 05/06/17 05:26; Admin Dose 40 MG; Start 05/02/17 at 15:00 Diltiazem HCl (Cardizem-D5W 125 Mg/125 ml Drip) 125 ml @ 5 mls/hr TITRATE IV Last administered on 05/02/17 19:11; Admin Dose 5 MLS/HR; Start 05/02/17 at 19: 00 Furosemide (Lasix) 80 mg Q12 IV Last administered on 05/06/17 09:21; Admin Dose 80 MG; Start 05/03/17 at 09:00 Hydrocortisone (Solu-Cortef) 100 mg BID IV Last administered on 05/06/17 09:21 ; Admin Dose 100 MG; Start 05/04/17 at 21:00 Valacyclovir HCl (Valtrex) 1,000 mg DAILY GTB Last administered on 05/06/17 09 :20; Admin Dose 1,000 MG; Start 05/06/17 at 09:00 MARGOT WILLS NP May 06, 2017 14:24
--- NOTE | 2017-05-06 15:17 | PN ---
Date/Time of Note Date/Time of Note DATE: 05/06/17 TIME: 15:04 Assessment/Plan Lines/Catheters IV Catheter Type (from [facility]): BHARTI Latif in Place (from [facility]): Yes Assessment/Plan Chief Complaint/Hosp Course 1. Cholelithiasis ? cholecystitis: Ct abd: sludge and small stones in the gallbladder. No gallbladder wall thickening is noted with some pericholecystic fluid is present. Patient off pressors; GT/OGT no output; HIDA positive; IR drain placement cancelled by radiologist since US without evidence of infection. Therefore, Dr. Guadalupe believes the HIDA is false positive. Tolerating tube feeds; no abdominal pain/discomfort; LFT's increased, bili nl (s/p code with blood loss); +bowel function -No surgical intervention required at this time 2. Pneumonia: Recurrent; no fevers; reintubated; less secretion sputum cx: PSEUDOMONAS AERUGINOSA, K PNEUMO ESBL, NASRIN GLABRATA; appears comfortable -pulmonary toilet -abx per ID 3. Vent dependent respiratory failure: 2/2 aspiration PNA+ CHF;reintubated and extubated, coded 04/21 and 05/01; currently reintubated -as above 4. Septic shock: improved -on abx -supportive 5. Uncontrolled Afib: s/p amiodarone drip, on oral amiodarone; episodes of Afib Now SR -medical optimization -lovenox 6. Elevated troponin:NSTEMI; septic shock/demand ischemia -trend 7. Leukocytosis with lactic acidosis: 2/2 pneumonia vs. steroids vs.fungemia vs other (urine, repeat blood cultures negative);wbc labile: s/p code -abx, antifungals -judicious fluid management -supportive measures 8. KEYONNA: likely 2/2 septic shock; s/p code; HD today -judicious fluid management -avoid nephrotoxic agents 9. CHF: BNP elevated -judicious fluid management -medical optimization 10. Adrenal Insufficiency -solucortef 11. Hypomagnesemia: -electrolyte optimization -monitor for cardiac abnormalities 12. Hypothyroidism; tsh elevated -on synthroid 13. Macrocytic anemia: chronic vs. dilutional vs. acute bleed vs. b12/folate deficiency; neeru blood noted orally during code; prbc transfusion; h/h stable -monitor -Transfuse as needed -?heme/onc consult -GI consult 14. Transaminitis: likely 2/2 septic shock vs. cholecystitis; up s/p code -trend, monitor 15. Diarrhea: 2/2 abx vs. enteritis: resolved; tolerating tf -? probiotics 16. Thrombocytosis: 2/2 inflammatory vs. drug induced vs. other -monitor -bleeding precautions -supportive 17. Encephalopathy: 2/2 toxic metabolic vs. anoxic injury; CT: No acute intracranial hemorrhage or mass effect. Mild chronic microvascular disease and intracranial atherosclerosis; EEG shows no seizure activity -supportive 18. Bilateral upper extremity edema: likely 2/2 decreased movement vs. thrombosis; initial doppler negative, repeat doppler left arm (+) Thrombus -elevate extremities -supportive -anticoagulation 19. Hypoalbuminemia: 2/2 malnutrition +/- inflammation; decreased; tolerating tf ; -nutrition optimization -as above 20 Hypernatremia: normalized -judicious fluid management 21. Hypocalcemia:normalized -optimize nutrition 22. Fungemia -antifungals 23. Hyperkalemia, now with hypokalemia -optimize lytes 24. Oral lesions Patient seen and examined in collaboration with Dr. Justus Antonio Problems: Subjective 24 Hr Interval Summary HD today. BP labile. Tolerating tf. +bowel function. No noted bleeding. Comfortable on vent. No c/o metzger, dizziness, sz, sob, cp, palpitations,, n/v/d, fevers, chills, dysuria. Exam/Review of Systems Vital Signs Vitals Vital Signs Date Time Temp Pulse Resp B/P Pulse Ox O2 Delivery O2 Flow Rate FiO2 05/06/17 12:00 87 05/06/17 11:37 25 100 35 05/06/17 06:00 164/76 05/06/17 04:00 98.1 05/06/17 00:00 Mechanical Ventilator Intake and Output 05/05/17 05/05/17 05/06/17 15:00 23:00 07:00 Intake Total 1250 ml 650 ml 350 ml Output Total 8355 ml 85 ml 170 ml Balance -7105 ml 565 ml 180 ml Exam Free Text/Dictation Constitutional: somnolent, appears comfortable Head: atraumatic, normocephalic Eyes: PERRL, nl lids, nl sclera ENMT: No mucosa pink and moist (pink and moist with perioral lesions) Neck: non-tender, supple, tracheostomy Respiratory: diminished, comfortable on vent Cardiovascular: nl pulses, regular rate and rhythm, NSR, Gastrointestinal: min distended, GT tubes site no erythema, no drainage, non tenderness, bowel sounds x 4 quads Genitourinary - Female: nl external genitalia Musculoskeletal: nl extremities to inspection Extremities: normal pulses, bilateral upper/lower extremity edema (min improvement) Neurological: responsive Skin: nl turgor, No rash or lesions Lymph: nl lymph nodes Results Result Diagram: 05/06/17 0447 05/06/17 0447 ADDISON FREGOSO NP May 06, 2017 15:14
--- NOTE | 2017-05-06 15:21 | CONS ---
Date/Time of Note Date/Time of Note DATE: 05/06/17 TIME: 15:17 Consultation Date/Type/Reason Admit Date/Time Apr 11, 2017 at 11:28 Initial Consult Date 05/01/17 Type of Consultation: Pallisative Care Referring Provider: NINA MACIEL DO 24 HR Interval Summary Free Text/Dictation Post dated progress note for May 05 visit... have continued to visit Mr Glasgow ... he is still hopeful that his will make a full recovery.. On HD an d reintubated , he has refused code change the last time I spoke with him. Exam/Review of Systems Vital Signs Vitals Vital Signs Date Time Temp Pulse Resp B/P Pulse Ox O2 Delivery O2 Flow Rate FiO2 05/06/17 12:00 87 05/06/17 11:37 25 100 35 05/06/17 06:00 164/76 05/06/17 04:00 98.1 05/06/17 00:00 Mechanical Ventilator Intake and Output 05/05/17 05/05/17 05/06/17 15:00 23:00 07:00 Intake Total 1250 ml 650 ml 350 ml Output Total 8355 ml 85 ml 170 ml Balance -7105 ml 565 ml 180 ml Results Result Diagram: 05/06/17 0447 05/06/17 0447 Results 24 hrs Laboratory Tests Test 05/05/17 18:10 05/06/17 04:47 05/06/17 06:17 05/06/17 13:16 Bedside Glucose 154 129 142 White Blood Count 34.5 #H Red Blood Count 3.24 L Hemoglobin 9.7 L Hematocrit 29.7 L Mean Corpuscular Volume 91.7 Mean Corpuscular Hemoglobin 29.9 Mean Corpuscular Hemoglobin Concent 32.7 Red Cell Distribution Width 20.1 H Platelet Count 99 L Mean Platelet Volume 13.8 H Neutrophils % Segmented Neutrophils % (Manual) 94 H Band Neutrophils % (Manual) 2 Lymphocytes % Lymphocytes % (Manual) 1 L Monocytes % Monocytes % (Manual) 3 Eosinophils % Basophils % Nucleated Red Blood Cells % 0.0 Neutrophils # Neutrophils # (Manual) 32.6 H Band Neutrophils # 0.6 Absolute Lymphocytes (Manual) 0.3 L Lymphocytes # Monocytes # Absolute Monocytes (Manual) 1.0 H Eosinophils # Basophils # Nucleated Red Blood Cells # Smudge Cells % 2 H Thrombocytosis 2 H Platelet Estimate DECREASED Polychromasia 3+ Poikilocytosis 1+ Anisocytosis 1+ Microcytosis 1+ Sodium Level 143 Potassium Level 3.4 L Chloride Level 100 Carbon Dioxide Level 27 Anion Gap 19 H Blood Urea Nitrogen 61 H Creatinine 1.77 H Glucose Level 125 Calcium Level 9.1 Phosphorus Level 3.5 Magnesium Level 2.1 Digoxin Level < 0.4 L Medications Medications Current Medications Aspirin (Aspirin) 325 mg DAILY NGT Last administered on 04/30/17 08:43; Admin Dose 325 MG; Start 04/12/17 at 09:00; Status Future Hold Metoprolol Tartrate (Lopressor) 5 mg Q4H PRN IV HR>110 Hold SBP<110 Last administered on 04/20/17 17:36; Admin Dose 5 MG; Start 04/11/17 at 13:30 Miscellaneous Information 1 ea NOTE XX ; Start 04/11/17 at 16:30 Glucose (Glutose) 15 gm Q15M PRN PO DECREASED GLUCOSE; Start 04/11/17 at 16:30 Glucose (Glutose) 22.5 gm Q15M PRN PO DECREASED GLUCOSE; Start 04/11/17 at 16: 30 Dextrose (D50w Syringe) 25 ml Q15M PRN IV DECREASED GLUCOSE Last administered on 04/12/17 23:56; Admin Dose 25 ML; Start 04/11/17 at 16:30 Dextrose (D50w Syringe) 50 ml Q15M PRN IV DECREASED GLUCOSE; Start 04/11/17 at 16:30 Glucagon (Glucagen) 1 mg Q15M PRN IM DECREASED GLUCOSE; Start 04/11/17 at 16:30 Glucose (Glutose) 15 gm Q15M PRN BUCCAL DECREASED GLUCOSE; Start 04/11/17 at 16 :30 Metoclopramide HCl (Reglan) 10 mg Q6 IV Last administered on 05/06/17 05:26; Admin Dose 10 MG; Start 04/12/17 at 18:00 Insulin Aspart (Novolog Insulin Pen) NOVOLOG *MILD* ALGORI... Q6H SC Last administered on 05/06/17 13:18; Admin Dose 1 UNIT; Start 04/15/17 at 00:00 IV Flush (NS 10 ml) 10 ml PRN PRN IV FLUSH LINE; Start 04/15/17 at 13:00 Amiodarone HCl (Cordarone) 200 mg BID GTB Last administered on 05/06/17 09:24 ; Admin Dose 200 MG; Start 04/16/17 at 13:00 Heparin Sodium (Porcine) (Heparin (5000 Units/0.5 ml)) 5,000 unit BID SC Last administered on 04/30/17 21:03; Admin Dose 5,000 UNIT; Start 04/18/17 at 16:22; Status Future Hold Citalopram Hydrobromide (Celexa) 20 mg DAILY NGT Last administered on 09:20; Admin Dose 20 MG; Start 04/19/17 at 09:00 Hydralazine HCl 20 mg 20 mg Q6H PRN IV sbp ABOVE 160 Last administered on 12:43; Admin Dose 20 MG; Start 04/18/17 at 18:30 Caspofungin/ Sodium Chloride (Cancidas/NS) 250 ml @ 250 mls/hr Q24H IV Last administered on 05/06/17 11:00; Admin Dose 250 MLS/HR; Start 04/21/17 at 10:00 Chlorhexidine Gluconate (Peridex) 15 ml BID MT Last administered on 05/06/17 09:20; Admin Dose 15 ML; Start 04/22/17 at 21:00 Vitamin A/Vitamin D (Vitamin A & D Oint) 1 applic TID TOP Last administered on 05/06/17 13:18; Admin Dose 1 APPLIC; Start 04/22/17 at 21:00 Vitamin A/Vitamin D (Vitamin A & D Oint) 1 applic TID PRN TOP DRYNESS Last administered on 04/22/17 15:29; Admin Dose 1 APPLIC; Start 04/22/17 at 15:00 Acetaminophen/ Hydrocodone Bitart ([place] (5/325)) 1 tab Q6H GTB Last administered on 05/06/17 14:57; Admin Dose 1 TAB; Start 04/22/17 at 21:30 Spironolactone (Aldactone) 25 mg DAILY NGT Last administered on 04/30/17 08:43 ; Admin Dose 25 MG; Start 04/25/17 at 19:00; Status Future Hold Diltiazem HCl 5 mg 5 mg Q1H PRN IV HEART RATE GREATER THAN 120 Last administered on 04/29/17 06:17; Admin Dose 5 MG; Start 04/29/17 at 05:00 Meropenem/Sodium Chloride (Merrem 500mg/50 ml(Pmx)) 50 ml @ 200 mls/hr Q12 IVPB Last administered on 05/06/17 09:24; Admin Dose 200 MLS/HR; Start at 12:00 Metoprolol Tartrate (Lopressor) 25 mg BID GTB Last administered on 05/06/17 09 :21; Admin Dose 25 MG; Start 04/30/17 at 21:00; Status Future hold Metronidazole 500 mg 500 mg Q8 GTB Last administered on 05/06/17 14:57; Admin Dose 500 MG; Start 04/30/17 at 22:00 Dopamine HCl/ Dextrose 250 ml @ 4.875 mls/ hr TITRATE IV Last administered on 05/01/17 07:07; Admin Dose 48.75 MLS/HR; Start 05/01/17 at 02:30 Vasopressin 60 unit/Dextrose 60 ml @ 1.2 mls/hr Q12H IV Last administered on 02:48; Admin Dose 1.2 MLS/HR; Start 05/01/17 at 02:30 Sodium Chloride 1,000 ml @ 0 mls/hr Q0M IV Last administered on 05/01/17 03: 00; Admin Dose 1,000 MLS/HR; Start 05/01/17 at 03:00 Sodium Chloride 1,000 ml @ 0 mls/hr Q0M IV Last administered on 05/01/17 04: 00; Admin Dose 1,000 MLS/HR; Start 05/01/17 at 03:30 Norepinephrine/ Dextrose (Levophed/D5W) 500 ml @ 1.87 mls/hr TITRATE IV Last administered on 05/01/17 10:13; Admin Dose 18.75 MLS/HR; Start 05/01/17 at 08: 00 Pantoprazole 40 mg 40 mg BID@06,18 IV Last administered on 05/06/17 05:26; Admin Dose 40 MG; Start 05/02/17 at 15:00 Diltiazem HCl (Cardizem-D5W 125 Mg/125 ml Drip) 125 ml @ 5 mls/hr TITRATE IV Last administered on 05/02/17 19:11; Admin Dose 5 MLS/HR; Start 05/02/17 at 19: 00 Furosemide (Lasix) 80 mg Q12 IV Last administered on 05/06/17 09:21; Admin Dose 80 MG; Start 05/03/17 at 09:00 Hydrocortisone (Solu-Cortef) 100 mg BID IV Last administered on 05/06/17 09:21 ; Admin Dose 100 MG; Start 05/04/17 at 21:00 Valacyclovir HCl (Valtrex) 1,000 mg DAILY GTB Last administered on 05/06/17 09 :20; Admin Dose 1,000 MG; Start 05/06/17 at 09:00 YVONNE ADAMS May 06, 2017 15:21
--- NOTE | 2017-05-06 15:26 | CONS ---
Date/Time of Note Date/Time of Note DATE: 05/06/17 TIME: 15:21 Consultation Date/Type/Reason Admit Date/Time Apr 11, 2017 at 11:28 Initial Consult Date 05/01/17 Type of Consultation: Pallisative Care Referring Provider: NINA VALDERRAMA DO 24 HR Interval Summary Free Text/Dictation Mr Glasgow is at his wifes bedside daily, he is sure she will improve. I will continue to support him. He expressed that he wants more communication with primary caregivers. Dr Valderrama has had daily conversations with him...[employer] will allow him to express his concerns however will speak to Dr Valderrama prior to referring. Subjective hx not possible: pt critical Exam/Review of Systems Vital Signs Vitals Vital Signs Date Time Temp Pulse Resp B/P Pulse Ox O2 Delivery O2 Flow Rate FiO2 05/06/17 12:00 87 05/06/17 11:37 25 100 35 05/06/17 06:00 164/76 05/06/17 04:00 98.1 05/06/17 00:00 Mechanical Ventilator Intake and Output 05/05/17 05/05/17 05/06/17 15:00 23:00 07:00 Intake Total 1250 ml 650 ml 350 ml Output Total 8355 ml 85 ml 170 ml Balance -7105 ml 565 ml 180 ml Exam Respiratory: congested cough, crackles/rales Cardiovascular: nl pulses, regular rate and rhythm Neurological: other (Sedated) Results Result Diagram: 05/06/17 0447 05/06/17 0447 Results 24 hrs Laboratory Tests Test 05/05/17 18:10 05/06/17 04:47 05/06/17 06:17 05/06/17 13:16 Bedside Glucose 154 129 142 White Blood Count 34.5 #H Red Blood Count 3.24 L Hemoglobin 9.7 L Hematocrit 29.7 L Mean Corpuscular Volume 91.7 Mean Corpuscular Hemoglobin 29.9 Mean Corpuscular Hemoglobin Concent 32.7 Red Cell Distribution Width 20.1 H Platelet Count 99 L Mean Platelet Volume 13.8 H Neutrophils % Segmented Neutrophils % (Manual) 94 H Band Neutrophils % (Manual) 2 Lymphocytes % Lymphocytes % (Manual) 1 L Monocytes % Monocytes % (Manual) 3 Eosinophils % Basophils % Nucleated Red Blood Cells % 0.0 Neutrophils # Neutrophils # (Manual) 32.6 H Band Neutrophils # 0.6 Absolute Lymphocytes (Manual) 0.3 L Lymphocytes # Monocytes # Absolute Monocytes (Manual) 1.0 H Eosinophils # Basophils # Nucleated Red Blood Cells # Smudge Cells % 2 H Thrombocytosis 2 H Platelet Estimate DECREASED Polychromasia 3+ Poikilocytosis 1+ Anisocytosis 1+ Microcytosis 1+ Sodium Level 143 Potassium Level 3.4 L Chloride Level 100 Carbon Dioxide Level 27 Anion Gap 19 H Blood Urea Nitrogen 61 H Creatinine 1.77 H Glucose Level 125 Calcium Level 9.1 Phosphorus Level 3.5 Magnesium Level 2.1 Digoxin Level < 0.4 L Medications Medications Current Medications Aspirin (Aspirin) 325 mg DAILY NGT Last administered on 04/30/17 08:43; Admin Dose 325 MG; Start 04/12/17 at 09:00; Status Future Hold Metoprolol Tartrate (Lopressor) 5 mg Q4H PRN IV HR>110 Hold SBP<110 Last administered on 04/20/17 17:36; Admin Dose 5 MG; Start 04/11/17 at 13:30 Miscellaneous Information 1 ea NOTE XX ; Start 04/11/17 at 16:30 Glucose (Glutose) 15 gm Q15M PRN PO DECREASED GLUCOSE; Start 04/11/17 at 16:30 Glucose (Glutose) 22.5 gm Q15M PRN PO DECREASED GLUCOSE; Start 04/11/17 at 16: 30 Dextrose (D50w Syringe) 25 ml Q15M PRN IV DECREASED GLUCOSE Last administered on 04/12/17 23:56; Admin Dose 25 ML; Start 04/11/17 at 16:30 Dextrose (D50w Syringe) 50 ml Q15M PRN IV DECREASED GLUCOSE; Start 04/11/17 at 16:30 Glucagon (Glucagen) 1 mg Q15M PRN IM DECREASED GLUCOSE; Start 04/11/17 at 16:30 Glucose (Glutose) 15 gm Q15M PRN BUCCAL DECREASED GLUCOSE; Start 04/11/17 at 16 :30 Metoclopramide HCl (Reglan) 10 mg Q6 IV Last administered on 05/06/17 05:26; Admin Dose 10 MG; Start 04/12/17 at 18:00 Insulin Aspart (Novolog Insulin Pen) NOVOLOG *MILD* ALGORI... Q6H SC Last administered on 05/06/17 13:18; Admin Dose 1 UNIT; Start 04/15/17 at 00:00 IV Flush (NS 10 ml) 10 ml PRN PRN IV FLUSH LINE; Start 04/15/17 at 13:00 Amiodarone HCl (Cordarone) 200 mg BID GTB Last administered on 05/06/17 09:24 ; Admin Dose 200 MG; Start 04/16/17 at 13:00 Heparin Sodium (Porcine) (Heparin (5000 Units/0.5 ml)) 5,000 unit BID SC Last administered on 04/30/17 21:03; Admin Dose 5,000 UNIT; Start 04/18/17 at 16:22; Status Future Hold Citalopram Hydrobromide (Celexa) 20 mg DAILY NGT Last administered on 09:20; Admin Dose 20 MG; Start 04/19/17 at 09:00 Hydralazine HCl 20 mg 20 mg Q6H PRN IV sbp ABOVE 160 Last administered on 12:43; Admin Dose 20 MG; Start 04/18/17 at 18:30 Caspofungin/ Sodium Chloride (Cancidas/NS) 250 ml @ 250 mls/hr Q24H IV Last administered on 05/06/17 11:00; Admin Dose 250 MLS/HR; Start 04/21/17 at 10:00 Chlorhexidine Gluconate (Peridex) 15 ml BID MT Last administered on 05/06/17 09:20; Admin Dose 15 ML; Start 04/22/17 at 21:00 Vitamin A/Vitamin D (Vitamin A & D Oint) 1 applic TID TOP Last administered on 05/06/17 13:18; Admin Dose 1 APPLIC; Start 04/22/17 at 21:00 Vitamin A/Vitamin D (Vitamin A & D Oint) 1 applic TID PRN TOP DRYNESS Last administered on 04/22/17 15:29; Admin Dose 1 APPLIC; Start 04/22/17 at 15:00 Acetaminophen/ Hydrocodone Bitart ([place] (5/325)) 1 tab Q6H GTB Last administered on 05/06/17 14:57; Admin Dose 1 TAB; Start 04/22/17 at 21:30 Spironolactone (Aldactone) 25 mg DAILY NGT Last administered on 04/30/17 08:43 ; Admin Dose 25 MG; Start 04/25/17 at 19:00; Status Future Hold Diltiazem HCl 5 mg 5 mg Q1H PRN IV HEART RATE GREATER THAN 120 Last administered on 04/29/17 06:17; Admin Dose 5 MG; Start 04/29/17 at 05:00 Meropenem/Sodium Chloride (Merrem 500mg/50 ml(Pmx)) 50 ml @ 200 mls/hr Q12 IVPB Last administered on 05/06/17 09:24; Admin Dose 200 MLS/HR; Start at 12:00 Metoprolol Tartrate (Lopressor) 25 mg BID GTB Last administered on 05/06/17 09 :21; Admin Dose 25 MG; Start 04/30/17 at 21:00; Status Future hold Metronidazole 500 mg 500 mg Q8 GTB Last administered on 05/06/17 14:57; Admin Dose 500 MG; Start 04/30/17 at 22:00 Dopamine HCl/ Dextrose 250 ml @ 4.875 mls/ hr TITRATE IV Last administered on 05/01/17 07:07; Admin Dose 48.75 MLS/HR; Start 05/01/17 at 02:30 Vasopressin 60 unit/Dextrose 60 ml @ 1.2 mls/hr Q12H IV Last administered on 02:48; Admin Dose 1.2 MLS/HR; Start 05/01/17 at 02:30 Sodium Chloride 1,000 ml @ 0 mls/hr Q0M IV Last administered on 05/01/17 03: 00; Admin Dose 1,000 MLS/HR; Start 05/01/17 at 03:00 Sodium Chloride 1,000 ml @ 0 mls/hr Q0M IV Last administered on 05/01/17 04: 00; Admin Dose 1,000 MLS/HR; Start 05/01/17 at 03:30 Norepinephrine/ Dextrose (Levophed/D5W) 500 ml @ 1.87 mls/hr TITRATE IV Last administered on 05/01/17 10:13; Admin Dose 18.75 MLS/HR; Start 05/01/17 at 08: 00 Pantoprazole 40 mg 40 mg BID@06,18 IV Last administered on 05/06/17 05:26; Admin Dose 40 MG; Start 05/02/17 at 15:00 Diltiazem HCl (Cardizem-D5W 125 Mg/125 ml Drip) 125 ml @ 5 mls/hr TITRATE IV Last administered on 05/02/17 19:11; Admin Dose 5 MLS/HR; Start 05/02/17 at 19: 00 Furosemide (Lasix) 80 mg Q12 IV Last administered on 05/06/17 09:21; Admin Dose 80 MG; Start 05/03/17 at 09:00 Hydrocortisone (Solu-Cortef) 100 mg BID IV Last administered on 05/06/17 09:21 ; Admin Dose 100 MG; Start 05/04/17 at 21:00 Valacyclovir HCl (Valtrex) 1,000 mg DAILY GTB Last administered on 05/06/17 09 :20; Admin Dose 1,000 MG; Start 05/06/17 at 09:00 YVONNE ADAMS May 06, 2017 15:26
--- NOTE | 2017-05-06 19:49 | CONS ---
Date/Time of Note Date/Time of Note DATE: 05/06/17 TIME: 19:48 Assessment/Plan Assessment/Plan Chief Complaint/Hosp Course Patient is a 66 year old female with a history of diabetes mellitus hypertension chronic vent dependency, history of tongue cancer status post resection has a G-tube. GI consult was called in for GI bleeding anemia requiring blood transfusion. Her other problems include aspiration pneumonia, atrial fibrillation well controlled. Patient also had a sepsis and fungemia successfully treated. Her G-tube aspirate shows burgundy colored fluid. Patient is off all the pressor support. She is on a steroid for adrenal insufficiency Problems: Additional Assessment/Plan #1 GI bleeding manifested in the form of hematemesis and large burgundy color aspirate through G-tube, successful hemostasis achieved. No further bleeding 2. Vent dependent respiratory failure 3. Atrial fibrillation 4. Diabetes mellitus 5. Hypertension 6. Status post septic shock 7. Anemia 8. Prerenal azotemia 9. Status post cardiac arrest in the past 10. Leukocytosis Plan Transfuse 2 units of packed cell RBC bring hemoglobin greater than 7.5 Continue with PPI Refrain from all kind of blood thinner. Antibiotic as per ID Consultation Date/Type/Reason Admit Date/Time Apr 11, 2017 at 11:28 Initial Consult Date 05/01/17 Type of Consultation: Pallisative Care Referring Provider: NINA MACIEL DO 24 HR Interval Summary Constitutional: improved, no complaints Exam/Review of Systems Vital Signs Vitals Vital Signs Date Time Temp Pulse Resp B/P Pulse Ox O2 Delivery O2 Flow Rate FiO2 05/06/17 18:00 89 22 164/93 100 Mechanical Ventilator 05/06/17 17:09 35 05/06/17 16:00 97.0 Intake and Output 05/05/17 05/05/17 05/06/17 15:00 23:00 07:00 Intake Total 1250 ml 650 ml 350 ml Output Total 8355 ml 85 ml 170 ml Balance -7105 ml 565 ml 180 ml Exam Constitutional: alert, oriented, well developed Psych: nl mood/affect, no complaints Head: atraumatic, normocephalic Eyes: EOMI, PERRL, nl conjunctiva, nl lids, nl sclera ENMT: nl external ears & nose, nl lips & teeth, nl nasal mucosa & septum Neck: non-tender, supple Respiratory: clear to auscultation, normal air movement Cardiovascular: nl pulses, regular rate and rhythm Gastrointestinal: nl liver, spleen, non-tender, soft Musculoskeletal: nl extremities to inspection, nl gait and stance Extremities: normal pulses Neurological: [employer] II-XII intact, nl mental status, nl speech, nl strength Skin: nl turgor, No rash or lesions Lymph: nl lymph nodes Results Result Diagram: 05/06/17 0447 05/06/177 Results 24 hrs Laboratory Tests Test 05/06/17 04:47 05/06/17 06:17 05/06/17 13:16 05/06/17 17:33 White Blood Count 34.5 #H Red Blood Count 3.24 L Hemoglobin 9.7 L Hematocrit 29.7 L Mean Corpuscular Volume 91.7 Mean Corpuscular Hemoglobin 29.9 Mean Corpuscular Hemoglobin Concent 32.7 Red Cell Distribution Width 20.1 H Platelet Count 99 L Mean Platelet Volume 13.8 H Neutrophils % Segmented Neutrophils % (Manual) 94 H Band Neutrophils % (Manual) 2 Lymphocytes % Lymphocytes % (Manual) 1 L Monocytes % Monocytes % (Manual) 3 Eosinophils % Basophils % Nucleated Red Blood Cells % 0.0 Neutrophils # Neutrophils # (Manual) 32.6 H Band Neutrophils # 0.6 Absolute Lymphocytes (Manual) 0.3 L Lymphocytes # Monocytes # Absolute Monocytes (Manual) 1.0 H Eosinophils # Basophils # Nucleated Red Blood Cells # Smudge Cells % 2 H Thrombocytosis 2 H Platelet Estimate DECREASED Polychromasia 3+ Poikilocytosis 1+ Anisocytosis 1+ Microcytosis 1+ Sodium Level 143 Potassium Level 3.4 L Chloride Level 100 Carbon Dioxide Level 27 Anion Gap 19 H Blood Urea Nitrogen 61 H Creatinine 1.77 H Glucose Level 125 Calcium Level 9.1 Phosphorus Level 3.5 Magnesium Level 2.1 Digoxin Level < 0.4 L Bedside Glucose 129 142 140 Medications Medications Current Medications Aspirin (Aspirin) 325 mg DAILY NGT Last administered on 04/30/17 08:43; Admin Dose 325 MG; Start 04/12/17 at 09:00; Status Future Hold Metoprolol Tartrate (Lopressor) 5 mg Q4H PRN IV HR>110 Hold SBP<110 Last administered on 04/20/17 17:36; Admin Dose 5 MG; Start 04/11/17 at 13:30 Miscellaneous Information 1 ea NOTE XX ; Start 04/11/17 at 16:30 Glucose (Glutose) 15 gm Q15M PRN PO DECREASED GLUCOSE; Start 04/11/17 at 16:30 Glucose (Glutose) 22.5 gm Q15M PRN PO DECREASED GLUCOSE; Start 04/11/17 at 16: 30 Dextrose (D50w Syringe) 25 ml Q15M PRN IV DECREASED GLUCOSE Last administered on 04/12/17 23:56; Admin Dose 25 ML; Start 04/11/17 at 16:30 Dextrose (D50w Syringe) 50 ml Q15M PRN IV DECREASED GLUCOSE; Start 04/11/17 at 16:30 Glucagon (Glucagen) 1 mg Q15M PRN IM DECREASED GLUCOSE; Start 04/11/17 at 16:30 Glucose (Glutose) 15 gm Q15M PRN BUCCAL DECREASED GLUCOSE; Start 04/11/17 at 16 :30 Metoclopramide HCl (Reglan) 10 mg Q6 IV Last administered on 05/06/17 17:34; Admin Dose 10 MG; Start 04/12/17 at 18:00 Insulin Aspart (Novolog Insulin Pen) NOVOLOG *MILD* ALGORI... Q6H SC Last administered on 05/06/17 13:18; Admin Dose 1 UNIT; Start 04/15/17 at 00:00 IV Flush (NS 10 ml) 10 ml PRN PRN IV FLUSH LINE; Start 04/15/17 at 13:00 Amiodarone HCl (Cordarone) 200 mg BID GTB Last administered on 05/06/17 09:24 ; Admin Dose 200 MG; Start 04/16/17 at 13:00 Heparin Sodium (Porcine) (Heparin (5000 Units/0.5 ml)) 5,000 unit BID SC Last administered on 04/30/17 21:03; Admin Dose 5,000 UNIT; Start 04/18/17 at 16:22; Status Future Hold Citalopram Hydrobromide (Celexa) 20 mg DAILY NGT Last administered on 09:20; Admin Dose 20 MG; Start 04/19/17 at 09:00 Hydralazine HCl 20 mg 20 mg Q6H PRN IV sbp ABOVE 160 Last administered on 12:43; Admin Dose 20 MG; Start 04/18/17 at 18:30 Caspofungin/ Sodium Chloride (Cancidas/NS) 250 ml @ 250 mls/hr Q24H IV Last administered on 05/06/17 11:00; Admin Dose 250 MLS/HR; Start 04/21/17 at 10:00 Chlorhexidine Gluconate (Peridex) 15 ml BID MT Last administered on 05/06/17 09:20; Admin Dose 15 ML; Start 04/22/17 at 21:00 Vitamin A/Vitamin D (Vitamin A & D Oint) 1 applic TID TOP Last administered on 05/06/17 13:18; Admin Dose 1 APPLIC; Start 04/22/17 at 21:00 Vitamin A/Vitamin D (Vitamin A & D Oint) 1 applic TID PRN TOP DRYNESS Last administered on 04/22/17 15:29; Admin Dose 1 APPLIC; Start 04/22/17 at 15:00 Acetaminophen/ Hydrocodone Bitart ([place] (5/325)) 1 tab Q6H GTB Last administered on 05/06/17 14:57; Admin Dose 1 TAB; Start 04/22/17 at 21:30 Spironolactone (Aldactone) 25 mg DAILY NGT Last administered on 04/30/17 08:43 ; Admin Dose 25 MG; Start 04/25/17 at 19:00; Status Future Hold Diltiazem HCl 5 mg 5 mg Q1H PRN IV HEART RATE GREATER THAN 120 Last administered on 04/29/17 06:17; Admin Dose 5 MG; Start 04/29/17 at 05:00 Meropenem/Sodium Chloride (Merrem 500mg/50 ml(Pmx)) 50 ml @ 200 mls/hr Q12 IVPB Last administered on 05/06/17 09:24; Admin Dose 200 MLS/HR; Start at 12:00 Metoprolol Tartrate (Lopressor) 25 mg BID GTB Last administered on 05/06/17 09 :21; Admin Dose 25 MG; Start 04/30/17 at 21:00; Status Future hold Metronidazole 500 mg 500 mg Q8 GTB Last administered on 05/06/17 14:57; Admin Dose 500 MG; Start 04/30/17 at 22:00 Dopamine HCl/ Dextrose 250 ml @ 4.875 mls/ hr TITRATE IV Last administered on 05/01/17 07:07; Admin Dose 48.75 MLS/HR; Start 05/01/17 at 02:30 Vasopressin 60 unit/Dextrose 60 ml @ 1.2 mls/hr Q12H IV Last administered on 02:48; Admin Dose 1.2 MLS/HR; Start 05/01/17 at 02:30 Sodium Chloride 1,000 ml @ 0 mls/hr Q0M IV Last administered on 05/01/17 03: 00; Admin Dose 1,000 MLS/HR; Start 05/01/17 at 03:00 Sodium Chloride 1,000 ml @ 0 mls/hr Q0M IV Last administered on 05/01/17 04: 00; Admin Dose 1,000 MLS/HR; Start 05/01/17 at 03:30 Norepinephrine/ Dextrose (Levophed/D5W) 500 ml @ 1.87 mls/hr TITRATE IV Last administered on 05/01/17 10:13; Admin Dose 18.75 MLS/HR; Start 05/01/17 at 08: 00 Pantoprazole 40 mg 40 mg BID@06,18 IV Last administered on 05/06/17 17:34; Admin Dose 40 MG; Start 05/02/17 at 15:00 Diltiazem HCl (Cardizem-D5W 125 Mg/125 ml Drip) 125 ml @ 5 mls/hr TITRATE IV Last administered on 05/02/17 19:11; Admin Dose 5 MLS/HR; Start 05/02/17 at 19: 00 Furosemide (Lasix) 80 mg Q12 IV Last administered on 05/06/17 09:21; Admin Dose 80 MG; Start 05/03/17 at 09:00 Hydrocortisone (Solu-Cortef) 100 mg BID IV Last administered on 05/06/17 09:21 ; Admin Dose 100 MG; Start 05/04/17 at 21:00 Valacyclovir HCl (Valtrex) 1,000 mg DAILY GTB Last administered on 05/06/17 09 :20; Admin Dose 1,000 MG; Start 05/06/17 at 09:00 ALYSSA THOMPSON MD May 06, 2017 19:49
[2017-05-07] VITALS (74 sets, daily range): BP systolic 85–179; BP diastolic 41–105; PULSE 64–98; RESP 7–28
[2017-05-07] MEDS: METOCLOPRAMIDE 10 MG INJ IV SCH ×5 (00:13→23:46)
[2017-05-07] MEDS: INSULIN ASPART [NOVOLOG] 3 ML PEN SC SCH ×5 (01:00→23:48)
[2017-05-07] MEDS: LEVALBUTEROL (HFA) 15 GM INHALER INH SCH ×4 (01:18→19:36)
[2017-05-07] MEDS: VASOPRESSIN 60 UNIT in DEXTROSE 5% 57 ML IV SCH ×2 (02:30→13:18)
[2017-05-07] MEDS: HYDROCODONE/APAP (5/325) TAB GTB SCH ×5 (04:08→21:04)
[2017-05-07] MEDS: LEVOTHYROXINE 75 MCG TAB GTB SCH ×2 (05:13→11:40)
[2017-05-07] MEDS: PANTOPRAZOLE 40 MG INJ IV SCH ×2 (05:13→16:28)
[2017-05-07] MEDS: metroNIDAZOLE 500 MG TAB GTB SCH ×3 (05:13→22:09)
[2017-05-07 05:23] LABS: ABNORMAL IP MESSAGE 1; BASOPHILS % 0.1 % (0.0-2.0); HEMATOCRIT 24.2 % (37.0-47.0); HEMOGLOBIN 8.1 g/dl (12.0-16.0); LYMPHOCYTES # 0.6 10^3/ul (0.8-2.9); LYMPHOCYTES % 2.7 % (15.0-51.0); MEAN CORPUSCULAR HEMOGLOBIN 29.8 pg (29.0-33.0); MEAN CORPUSCULAR HGB CONC 33.5 g/dl (32.0-37.0); MEAN PLATELET VOLUME 13.7 fl (7.4-10.4); MONOCYTES % 4.6 % (0.0-11.0); NEUTROPHIL # 18.5 10^3/ul (1.6-7.5); NEUTROPHILS % 90.3 % (39.0-77.0); PLATELET COUNT 88 10^3/UL (140-415); RED BLOOD COUNT 2.72 10^6/ul (4.20-5.40); RED CELL DISTRIBUTION WIDTH 19.4 % (11.5-14.5); WHITE BLOOD COUNT 20.6 10^3/ul (4.8-10.8)
[2017-05-07 05:29] LABS: POSITIVE DIFF @See below
[2017-05-07 05:44] LABS: CALCIUM 8.5 mg/dl (8.4-10.2); CREATININE 1.71 mg/dl (0.44-1.00); PHOSPHORUS 3.2 mg/dl (2.5-4.9)
--- NOTE | 2017-05-07 07:47 | PN ---
Date/Time of Note Date/Time of Note DATE: 05/07/17 TIME: 07:41 Assessment/Plan VTE Prophylaxis VTE Prophylaxis Intervention: other Lines/Catheters IV [facility]): BHARTI Urinary Cath still in place: Yes Reason Cath still needed: other (indicate) Assessment/Plan Chief Complaint/Hosp Course 1. acute on chronic hypoxemic respiratory failure: 2. NSTEMI: due to demand ischemia. 3. CHF/ fluid overload: due to diastolic heart failure 4. moderate 5. Arrhythmia and P afib, frequent PVC: 6. ANEMIA 7. pneumonia, severe leukocytosis now. 8. sepsis and shock: BACK ON 3 pressors now 9. Anasarca 10. s/p cardiopulm arrest due to resp failure 11. renal failure 12. coagulopathy Rec: off of ASA due to active bleeding and severe anemia and coagulopathy. resp care as per PULM Team. correct lytes prn. keep K > 4, Mg > 2 cont ICU care. INC betablocker as tolerated. cardizem IV prn . thyroid supplement . will closely monitor in ICU. HD/ ultrafiltration as per renal. transfuse prn Problems: Subjective 24 Hr Interval Summary Free Text/Dictation CARDIOLOGY FOLLOW UP NOTE: D/W staff , D/ W D/W Dr Valderrama rhythm was reviewed. pt has remained in NSR . no Afib over night. Frequent PVC. getting HD and tolerated it well so far pt still s/p trach on vent Objective: General: s/p trach on vent HEENT: NC/AT. . oropharynx with old blood and multiple lesions. . NECK: NO JVD. no stridor. s/p trach on vent CV: RRR. systolic ejection murmur; no gallop or rubs. PULM: + diffuse rhonchi. GI: SOFT, NT, ND, no rebound or guarding s/p PEG Extremity: 3+ B/L LE edema. no clubbing. neuro: awake and alert and responds appropriately Psych: calm rectal: deferred Derm: multiple echymosis Exam/Review of Systems Vital Signs Vitals Vital Signs Date Time Temp Pulse Resp B/P Pulse Ox O2 Delivery O2 Flow Rate FiO2 05/07/17 06:00 96 21 153/105 100 05/07/17 05:05 35 05/07/17 03:00 97.3 05/06/17 20:00 Mechanical Ventilator Intake and Output 05/06/17 05/06/17 05/07/17 15:00 23:00 07:00 Intake Total 900 ml 600 ml 350 ml Output Total 4525 ml 85 ml Balance -3625 ml 515 ml 350 ml Results Result Diagram: 05/07/17 0410 05/07/17 0410 Results 24 hrs Laboratory Tests Test 05/06/17 13:16 05/06/17 17:33 05/07/17 01:03 05/07/17 04:10 Bedside Glucose 142 140 140 White Blood Count 20.6 #H Red Blood Count 2.72 L Hemoglobin 8.1 L Hematocrit 24.2 L Mean Corpuscular Volume 89.0 Mean Corpuscular Hemoglobin 29.8 Mean Corpuscular Hemoglobin Concent 33.5 Red Cell Distribution Width 19.4 H Platelet Count 88 L Mean Platelet Volume 13.7 H Neutrophils % 90.3 H Lymphocytes % 2.7 L Monocytes % 4.6 Eosinophils % 0.0 Basophils % 0.1 Nucleated Red Blood Cells % 0.0 Neutrophils # 18.5 H Lymphocytes # 0.6 L Monocytes # 1.0 H Eosinophils # 0.0 Basophils # 0.0 Nucleated Red Blood Cells # 0.0 Sodium Level 140 Potassium Level 3.0 L Chloride Level 97 Carbon Dioxide Level 30 Anion Gap 16 Blood Urea Nitrogen 57 H Creatinine 1.71 H Glucose Level 109 Calcium Level 8.5 Phosphorus Level 3.2 Magnesium Level 2.0 Medications Medications Current Medications Aspirin (Aspirin) 325 mg DAILY NGT Last administered on 04/30/17 08:43; Admin Dose 325 MG; Start 04/12/17 at 09:00; Status Future Hold Metoprolol Tartrate (Lopressor) 5 mg Q4H PRN IV HR>110 Hold SBP<110 Last administered on 04/20/17 17:36; Admin Dose 5 MG; Start 04/11/17 at 13:30 Miscellaneous Information 1 ea NOTE XX ; Start 04/11/17 at 16:30 Glucose (Glutose) 15 gm Q15M PRN PO DECREASED GLUCOSE Last administered on 05/07 03:27; Admin Dose 15 GM; Start 04/11/17 at 16:30 Glucose (Glutose) 22.5 gm Q15M PRN PO DECREASED GLUCOSE; Start 04/11/17 at 16: 30 Dextrose (D50w Syringe) 25 ml Q15M PRN IV DECREASED GLUCOSE Last administered on 04/12/17 23:56; Admin Dose 25 ML; Start 04/11/17 at 16:30 Dextrose (D50w Syringe) 50 ml Q15M PRN IV DECREASED GLUCOSE; Start 04/11/17 at 16:30 Glucagon (Glucagen) 1 mg Q15M PRN IM DECREASED GLUCOSE; Start 04/11/17 at 16:30 Glucose (Glutose) 15 gm Q15M PRN BUCCAL DECREASED GLUCOSE; Start 04/11/17 at 16 :30 Metoclopramide HCl (Reglan) 10 mg Q6 IV Last administered on 05/07/17 05:13; Admin Dose 10 MG; Start 04/12/17 at 18:00 Insulin Aspart (Novolog Insulin Pen) NOVOLOG *MILD* ALGORI... Q6H SC Last administered on 05/06/17 13:18; Admin Dose 1 UNIT; Start 04/15/17 at 00:00 IV Flush (NS 10 ml) 10 ml PRN PRN IV FLUSH LINE; Start 04/15/17 at 13:00 Amiodarone HCl (Cordarone) 200 mg BID GTB Last administered on 05/06/17 20:56 ; Admin Dose 200 MG; Start 04/16/17 at 13:00 Heparin Sodium (Porcine) (Heparin (5000 Units/0.5 ml)) 5,000 unit BID SC Last administered on 04/30/17 21:03; Admin Dose 5,000 UNIT; Start 04/18/17 at 16:22; Status Future Hold Citalopram Hydrobromide (Celexa) 20 mg DAILY NGT Last administered on 09:20; Admin Dose 20 MG; Start 04/19/17 at 09:00 Hydralazine HCl 20 mg 20 mg Q6H PRN IV sbp ABOVE 160 Last administered on 12:43; Admin Dose 20 MG; Start 04/18/17 at 18:30 Caspofungin/ Sodium Chloride (Cancidas/NS) 250 ml @ 250 mls/hr Q24H IV Last administered on 05/06/17 11:00; Admin Dose 250 MLS/HR; Start 04/21/17 at 10:00 Chlorhexidine Gluconate (Peridex) 15 ml BID MT Last administered on 05/06/17 20:52; Admin Dose 15 ML; Start 04/22/17 at 21:00 Vitamin A/Vitamin D (Vitamin A & D Oint) 1 applic TID TOP Last administered on 05/06/17 20:49; Admin Dose 1 APPLIC; Start 04/22/17 at 21:00 Vitamin A/Vitamin D (Vitamin A & D Oint) 1 applic TID PRN TOP DRYNESS Last administered on 04/22/17 15:29; Admin Dose 1 APPLIC; Start 04/22/17 at 15:00 Acetaminophen/ Hydrocodone Bitart ([place] (5/325)) 1 tab Q6H GTB Last administered on 05/07/17 04:08; Admin Dose 1 TAB; Start 04/22/17 at 21:30 Spironolactone (Aldactone) 25 mg DAILY NGT Last administered on 04/30/17 08:43 ; Admin Dose 25 MG; Start 04/25/17 at 19:00; Status Future Hold Diltiazem HCl 5 mg 5 mg Q1H PRN IV HEART RATE GREATER THAN 120 Last administered on 04/29/17 06:17; Admin Dose 5 MG; Start 04/29/17 at 05:00 Meropenem/Sodium Chloride (Merrem 500mg/50 ml(Pmx)) 50 ml @ 200 mls/hr Q12 IVPB Last administered on 05/06/17 20:52; Admin Dose 200 MLS/HR; Start at 12:00 Metoprolol Tartrate (Lopressor) 25 mg BID GTB Last administered on 05/06/17 20 :50; Admin Dose 25 MG; Start 04/30/17 at 21:00; Status Future hold Metronidazole 500 mg 500 mg Q8 GTB Last administered on 05/07/17 05:13; Admin Dose 500 MG; Start 04/30/17 at 22:00 Dopamine HCl/ Dextrose 250 ml @ 4.875 mls/ hr TITRATE IV Last administered on 05/01/17 07:07; Admin Dose 48.75 MLS/HR; Start 05/01/17 at 02:30 Vasopressin 60 unit/Dextrose 60 ml @ 1.2 mls/hr Q12H IV Last administered on 02:48; Admin Dose 1.2 MLS/HR; Start 05/01/17 at 02:30 Sodium Chloride 1,000 ml @ 0 mls/hr Q0M IV Last administered on 05/01/17 03: 00; Admin Dose 1,000 MLS/HR; Start 05/01/17 at 03:00 Sodium Chloride 1,000 ml @ 0 mls/hr Q0M IV Last administered on 05/01/17 04: 00; Admin Dose 1,000 MLS/HR; Start 05/01/17 at 03:30 Norepinephrine/ Dextrose (Levophed/D5W) 500 ml @ 1.87 mls/hr TITRATE IV Last administered on 05/01/17 10:13; Admin Dose 18.75 MLS/HR; Start 05/01/17 at 08: 00 Pantoprazole 40 mg 40 mg BID@06,18 IV Last administered on 05/07/17 05:13; Admin Dose 40 MG; Start 05/02/17 at 15:00 Diltiazem HCl (Cardizem-D5W 125 Mg/125 ml Drip) 125 ml @ 5 mls/hr TITRATE IV Last administered on 05/02/17 19:11; Admin Dose 5 MLS/HR; Start 05/02/17 at 19: 00 Furosemide (Lasix) 80 mg Q12 IV Last administered on 05/06/17 20:48; Admin Dose 80 MG; Start 05/03/17 at 09:00 Hydrocortisone (Solu-Cortef) 100 mg BID IV Last administered on 05/06/17 20:48 ; Admin Dose 100 MG; Start 05/04/17 at 21:00 Valacyclovir HCl (Valtrex) 1,000 mg DAILY GTB Last administered on 05/06/17 09 :20; Admin Dose 1,000 MG; Start 05/06/17 at 09:00 FRANCISCO BLACKWOOD MD May 07, 2017 07:47
--- NOTE | 2017-05-07 08:40 | PN ---
Date/Time of Note Date/Time of Note DATE: 05/07/17 TIME: 08:37 Assessment/Plan VTE Prophylaxis VTE Prophylaxis Intervention: other Lines/Catheters IV Catheter Type (from Nrs): BHARTI Urinary Cath still in place: Yes Reason Cath still needed: other (indicate) Assessment/Plan Chief Complaint/Hosp Course 1. Status post code arrest -Etiology secondary to sepsis, hypoxemic failure -Patient was coded 30 minutes with spontaneous return of circulation We will continue to monitor 2. Ventilator dependent respiratory failure status post trach -ABG chest x-ray reviewed -We will follow-up with pulmonary, 2. nonoliguric Kenrick. With previously normal baseline creatinine. Etiology is likely secondary to septic KENRICK, ATN -Patient was initiated on dialysis due to significant volume overload and worsening renal failure Patient tolerated dialysis well Plan for daily dialysis for side clearance and volume removal - 3. Hypokalemia We will replete with potassium chloride resume Aldactone 3. Sepsis status post shock Etiology secondary to aspiration pneumonia, fungemia Patient is on broad-spectrum antibiotics, antifungals, - Patient's blood cultures have been reviewed. - Continue current treatment plan Follow-up with infectious disease 4. Volume overload. Etiology likely secondary to sepsis capillary leak, diastolic heart failure. -Continue dialysis and volume removal 6. History of adrenal insufficiency. -Patient currently on stress steroids, -Appreciate endocrinology evaluation 7. Acute encephalopathy etiologies toxic metabolic, possible anoxic injury. Mental status is improving, patient following commands CT scan showed no acute finding Appreciate Dr. Ellis evaluation -Continue to monitor closely 8. Hypernatremia Resolved 9. Hypothyroidism continue Synthroid 10. Anemia with GI bleed Status post EGD with cauterization of fundal bleed H&H levels have been slowly trending down Continue PPI Appreciate GIs help with management 11. Mineral bone disorder will monitor calcium phosphorus levels 12. h/o tongue cancer with resection 13. History of diastolic heart failure/coronary disease -Continue medical management 14. Leukocytosis. -Etiology is likely secondary sepsis, steroids. -Monitor - Follow-up with infectious disease. 15. Hypomagnesemia. Continue to monitor and replete as needed 16. Left upper extremity DVT. -Hold aspirin heparin in setting of bleed 17. Dysphagia status post PEG Continue tube feeding 18. Arrhythmia Status post amiodarone drip Follow-up with cardio 19. ?cholecystitis -Patient's HIDA scan was positive - cholecystostomy drain was not placed due to insufficient fluid. -No plan for drain placement at this time. I discussed case with general surgery Appreciate surgery's evaluation. 20. 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 Ellis's evaluation Continue supportive care Disposition. Isbell evaluation has been placed. I spent greater than 40 minutes of critical care time with this pt Problems: Subjective 24 Hr Interval Summary Free Text/Dictation Patient seen and examined Tolerating dialysis well Urinary output is increasing No other events noted Exam/Review of Systems Vital Signs Vitals Vital Signs Date Time Temp Pulse Resp B/P Pulse Ox O2 Delivery O2 Flow Rate FiO2 05/07/17 06:00 96 21 153/105 100 05/07/17 05:05 35 05/07/17 03:00 97.3 05/06/17 20:00 Mechanical Ventilator Intake and Output 05/06/17 05/06/17 05/07/17 15:00 23:00 07:00 Intake Total 900 ml 600 ml 350 ml Output Total 4525 ml 85 ml Balance -3625 ml 515 ml 350 ml Exam HEENT: Head is normocephalic, NECK: Supple. HEART: Irregular LUNGS: Show diminished breath sounds at base. ABDOMEN: Soft, nontender to palpation without rebound or guarding. EXTREMITIES: Negative for clubbing, cyanosis. Positive anasarca DERMATOLOGIC: No rashes. MUSCULOSKELETAL: No joint effusions, NEUROLOGIC: No change in exam. Results Result Diagram: 05/07/17 0410 05/07/17 0410 Results 24 hrs Laboratory Tests Test 05/06/17 13:16 05/06/17 17:33 05/07/17 01:03 05/07/17 04:10 Bedside Glucose 142 140 140 White Blood Count 20.6 #H Red Blood Count 2.72 L Hemoglobin 8.1 L Hematocrit 24.2 L Mean Corpuscular Volume 89.0 Mean Corpuscular Hemoglobin 29.8 Mean Corpuscular Hemoglobin Concent 33.5 Red Cell Distribution Width 19.4 H Platelet Count 88 L Mean Platelet Volume 13.7 H Neutrophils % 90.3 H Lymphocytes % 2.7 L Monocytes % 4.6 Eosinophils % 0.0 Basophils % 0.1 Nucleated Red Blood Cells % 0.0 Neutrophils # 18.5 H Lymphocytes # 0.6 L Monocytes # 1.0 H Eosinophils # 0.0 Basophils # 0.0 Nucleated Red Blood Cells # 0.0 Sodium Level 140 Potassium Level 3.0 L Chloride Level 97 Carbon Dioxide Level 30 Anion Gap 16 Blood Urea Nitrogen 57 H Creatinine 1.71 H Glucose Level 109 Calcium Level 8.5 Phosphorus Level 3.2 Magnesium Level 2.0 Medications Medications Current Medications Aspirin (Aspirin) 325 mg DAILY NGT Last administered on 04/30/17 08:43; Admin Dose 325 MG; Start 04/12/17 at 09:00; Status Future Hold Metoprolol Tartrate (Lopressor) 5 mg Q4H PRN IV HR>110 Hold SBP<110 Last administered on 04/20/17 17:36; Admin Dose 5 MG; Start 04/11/17 at 13:30 Miscellaneous Information 1 ea NOTE XX ; Start 04/11/17 at 16:30 Glucose (Glutose) 15 gm Q15M PRN PO DECREASED GLUCOSE Last administered on 05/07 03:27; Admin Dose 15 GM; Start 04/11/17 at 16:30 Glucose (Glutose) 22.5 gm Q15M PRN PO DECREASED GLUCOSE; Start 04/11/17 at 16: 30 Dextrose (D50w Syringe) 25 ml Q15M PRN IV DECREASED GLUCOSE Last administered on 04/12/17 23:56; Admin Dose 25 ML; Start 04/11/17 at 16:30 Dextrose (D50w Syringe) 50 ml Q15M PRN IV DECREASED GLUCOSE; Start 04/11/17 at 16:30 Glucagon (Glucagen) 1 mg Q15M PRN IM DECREASED GLUCOSE; Start 04/11/17 at 16:30 Glucose (Glutose) 15 gm Q15M PRN BUCCAL DECREASED GLUCOSE; Start 04/11/17 at 16 :30 Metoclopramide HCl (Reglan) 10 mg Q6 IV Last administered on 05/07/17 05:13; Admin Dose 10 MG; Start 04/12/17 at 18:00 Insulin Aspart (Novolog Insulin Pen) NOVOLOG *MILD* ALGORI... Q6H SC Last administered on 05/06/17 13:18; Admin Dose 1 UNIT; Start 04/15/17 at 00:00 IV Flush (NS 10 ml) 10 ml PRN PRN IV FLUSH LINE; Start 04/15/17 at 13:00 Amiodarone HCl (Cordarone) 200 mg BID GTB Last administered on 05/06/17 20:56 ; Admin Dose 200 MG; Start 04/16/17 at 13:00 Heparin Sodium (Porcine) (Heparin (5000 Units/0.5 ml)) 5,000 unit BID SC Last administered on 04/30/17 21:03; Admin Dose 5,000 UNIT; Start 04/18/17 at 16:22; Status Future Hold Citalopram Hydrobromide (Celexa) 20 mg DAILY NGT Last administered on 09:20; Admin Dose 20 MG; Start 04/19/17 at 09:00 Hydralazine HCl 20 mg 20 mg Q6H PRN IV sbp ABOVE 160 Last administered on 12:43; Admin Dose 20 MG; Start 04/18/17 at 18:30 Caspofungin/ Sodium Chloride (Cancidas/NS) 250 ml @ 250 mls/hr Q24H IV Last administered on 05/06/17 11:00; Admin Dose 250 MLS/HR; Start 04/21/17 at 10:00 Chlorhexidine Gluconate (Peridex) 15 ml BID MT Last administered on 05/06/17 20:52; Admin Dose 15 ML; Start 04/22/17 at 21:00 Vitamin A/Vitamin D (Vitamin A & D Oint) 1 applic TID TOP Last administered on 05/06/17 20:49; Admin Dose 1 APPLIC; Start 04/22/17 at 21:00 Vitamin A/Vitamin D (Vitamin A & D Oint) 1 applic TID PRN TOP DRYNESS Last administered on 04/22/17 15:29; Admin Dose 1 APPLIC; Start 04/22/17 at 15:00 Acetaminophen/ Hydrocodone Bitart ([place] (5/325)) 1 tab Q6H GTB Last administered on 05/07/17 04:08; Admin Dose 1 TAB; Start 04/22/17 at 21:30 Spironolactone (Aldactone) 25 mg DAILY NGT Last administered on 04/30/17 08:43 ; Admin Dose 25 MG; Start 04/25/17 at 19:00; Status Future hold Diltiazem HCl 5 mg 5 mg Q1H PRN IV HEART RATE GREATER THAN 120 Last administered on 04/29/17 06:17; Admin Dose 5 MG; Start 04/29/17 at 05:00 Meropenem/Sodium Chloride (Merrem 500mg/50 ml(Pmx)) 50 ml @ 200 mls/hr Q12 IVPB Last administered on 05/06/17 20:52; Admin Dose 200 MLS/HR; Start at 12:00 Metronidazole 500 mg 500 mg Q8 GTB Last administered on 05/07/17 05:13; Admin Dose 500 MG; Start 04/30/17 at 22:00 Dopamine HCl/ Dextrose 250 ml @ 4.875 mls/ hr TITRATE IV Last administered on 05/01/17 07:07; Admin Dose 48.75 MLS/HR; Start 05/01/17 at 02:30 Vasopressin 60 unit/Dextrose 60 ml @ 1.2 mls/hr Q12H IV Last administered on 02:48; Admin Dose 1.2 MLS/HR; Start 05/01/17 at 02:30 Sodium Chloride 1,000 ml @ 0 mls/hr Q0M IV Last administered on 05/01/17 03: 00; Admin Dose 1,000 MLS/HR; Start 05/01/17 at 03:00 Sodium Chloride 1,000 ml @ 0 mls/hr Q0M IV Last administered on 05/01/17 04: 00; Admin Dose 1,000 MLS/HR; Start 05/01/17 at 03:30 Norepinephrine/ Dextrose (Levophed/D5W) 500 ml @ 1.87 mls/hr TITRATE IV Last administered on 05/01/17 10:13; Admin Dose 18.75 MLS/HR; Start 05/01/17 at 08: 00 Pantoprazole 40 mg 40 mg BID@06,18 IV Last administered on 05/07/17 05:13; Admin Dose 40 MG; Start 05/02/17 at 15:00 Diltiazem HCl (Cardizem-D5W 125 Mg/125 ml Drip) 125 ml @ 5 mls/hr TITRATE IV Last administered on 05/02/17 19:11; Admin Dose 5 MLS/HR; Start 05/02/17 at 19: 00 Furosemide (Lasix) 80 mg Q12 IV Last administered on 05/06/17 20:48; Admin Dose 80 MG; Start 05/03/17 at 09:00 Hydrocortisone (Solu-Cortef) 100 mg BID IV Last administered on 05/06/17 20:48 ; Admin Dose 100 MG; Start 05/04/17 at 21:00 Valacyclovir HCl (Valtrex) 1,000 mg DAILY GTB Last administered on 05/06/17 09 :20; Admin Dose 1,000 MG; Start 05/06/17 at 09:00 Metoprolol Tartrate (Lopressor) 25 mg QID GTB ; Start 05/07/17 at 09:00 Potassium Chloride (Potassium Chloride Pwd/Soln) 40 meq ONCE ONCE NGT ; Start 05/07/17 at 09:00; Stop 05/07/17 at 09:01; Status NINA SILVA DO May 07, 2017 08:40
[2017-05-07] MEDS: VALACYCLOVIR 500 MG TAB GTB SCH (08:43)
[2017-05-07] MEDS: AMIODARONE 200 MG TAB GTB SCH ×3 (08:43→11:30)
[2017-05-07] MEDS: CITALOPRAM 20 MG TAB NGT SCH (08:43)
[2017-05-07] MEDS: FUROSEMIDE 40 MG INJ IV SCH ×3 (08:44→21:04)
[2017-05-07] MEDS: METOPROLOL 25 MG TAB GTB SCH ×5 (08:44→21:05)
[2017-05-07] MEDS: VITAMIN A & D 5 GM OINT PACKET TOP SCH ×3 (08:45→21:05)
[2017-05-07] MEDS: CHLORHEXIDINE GLUCONATE 15 ML UD CUP MT SCH ×2 (08:45→21:05)
[2017-05-07] MEDS: HYDROCORTISONE 100 MG INJ IV SCH ×2 (08:45→21:04)
[2017-05-07] MEDS ORDERED: POTASSIUM CHLORIDE 20 MEQ POWDER FOR ORAL SOLN NGT ONE (09:00)
[2017-05-07] MEDS: CASPOFUNGIN 50 MG in NS 250 ML IV SCH (09:46)
[2017-05-07] MEDS: MEROPENEM 500MG/50 ML (PMX) 50 ML IVPB SCH ×2 (09:46→21:04)
[2017-05-07] MEDS: SPIRONOLACTONE 25 MG TAB NGT SCH (09:47)
[2017-05-07] MEDS ORDERED: ALBUMIN HUMAN 25% 100 ML IV ONE (10:00)
--- NOTE | 2017-05-07 10:43 | CONS ---
Date/Time of Note Date/Time of Note DATE: 05/07/17 TIME: 10:41 Consult Date/Type/Reason Admit Date/Time Apr 11, 2017 at 11:28 Initial Consult Date 04/12/17 Type of Consultation: Pulmonary Ordering Provider: NINA MACIEL DO Subjective Remains comfortable continues mechanical ventilation awake alert this morning. No vasopressors. Minimal secretions. Objective Vital Signs Date Time Temp Pulse Resp B/P Pulse Ox O2 Delivery O2 Flow Rate FiO2 05/07/17 06:00 96 21 153/105 100 05/07/17 05:05 35 05/07/17 03:00 97.3 05/06/17 20:00 Mechanical Ventilator Intake and Output 05/06/17 05/06/17 05/07/17 15:00 23:00 07:00 Intake Total 900 ml 600 ml 350 ml Output Total 4525 ml 85 ml Balance -3625 ml 515 ml 350 ml Exam GENERAL: Elderly lady on mechanical ventilation via tracheostomy comfortable no distress VITAL SIGNS: see below. HEENT: Pupils equal, round, and reactive to light. Tracheostomy site clean and intact. CARDIAC: S1, S2, 1/6 systolic ejection murmur CHEST: Diminished air entry bilaterally. ABDOMEN: Mildly distended. Bowel sounds present no guarding or rebound EXTREMITIES: No cyanosis, clubbing edema +2 significant anasarca upper extremities NEUROLOGIC: Generalized weakness Results/Medications Result Diagram: 05/07/17 0410 05/07/17 0410 Results 24 hrs Laboratory Tests Test 05/06/17 13:16 05/06/17 17:33 05/07/17 01:03 05/07/17 04:10 Bedside Glucose 142 140 140 White Blood Count 20.6 #H Red Blood Count 2.72 L Hemoglobin 8.1 L Hematocrit 24.2 L Mean Corpuscular Volume 89.0 Mean Corpuscular Hemoglobin 29.8 Mean Corpuscular Hemoglobin Concent 33.5 Red Cell Distribution Width 19.4 H Platelet Count 88 L Mean Platelet Volume 13.7 H Neutrophils % 90.3 H Lymphocytes % 2.7 L Monocytes % 4.6 Eosinophils % 0.0 Basophils % 0.1 Nucleated Red Blood Cells % 0.0 Neutrophils # 18.5 H Lymphocytes # 0.6 L Monocytes # 1.0 H Eosinophils # 0.0 Basophils # 0.0 Nucleated Red Blood Cells # 0.0 Sodium Level 140 Potassium Level 3.0 L Chloride Level 97 Carbon Dioxide Level 30 Anion Gap 16 Blood Urea Nitrogen 57 H Creatinine 1.71 H Glucose Level 109 Calcium Level 8.5 Phosphorus Level 3.2 Magnesium Level 2.0 Medications Current Medications Aspirin (Aspirin) 325 mg DAILY NGT Last administered on 04/30/17 08:43; Admin Dose 325 MG; Start 04/12/17 at 09:00; Status Future Hold Metoprolol Tartrate (Lopressor) 5 mg Q4H PRN IV HR>110 Hold SBP<110 Last administered on 04/20/17 17:36; Admin Dose 5 MG; Start 04/11/17 at 13:30 Miscellaneous Information 1 ea NOTE XX ; Start 04/11/17 at 16:30 Glucose (Glutose) 15 gm Q15M PRN PO DECREASED GLUCOSE Last administered on 05/07 03:27; Admin Dose 15 GM; Start 04/11/17 at 16:30 Glucose (Glutose) 22.5 gm Q15M PRN PO DECREASED GLUCOSE; Start 04/11/17 at 16: 30 Dextrose (D50w Syringe) 25 ml Q15M PRN IV DECREASED GLUCOSE Last administered on 04/12/17 23:56; Admin Dose 25 ML; Start 04/11/17 at 16:30 Dextrose (D50w Syringe) 50 ml Q15M PRN IV DECREASED GLUCOSE; Start 04/11/17 at 16:30 Glucagon (Glucagen) 1 mg Q15M PRN IM DECREASED GLUCOSE; Start 04/11/17 at 16:30 Glucose (Glutose) 15 gm Q15M PRN BUCCAL DECREASED GLUCOSE; Start 04/11/17 at 16 :30 Metoclopramide HCl (Reglan) 10 mg Q6 IV Last administered on 05/07/17 05:13; Admin Dose 10 MG; Start 04/12/17 at 18:00 Insulin Aspart (Novolog Insulin Pen) NOVOLOG *MILD* ALGORI... Q6H SC Last administered on 05/06/17 13:18; Admin Dose 1 UNIT; Start 04/15/17 at 00:00 IV Flush (NS 10 ml) 10 ml PRN PRN IV FLUSH LINE; Start 04/15/17 at 13:00 Amiodarone HCl (Cordarone) 200 mg BID GTB Last administered on 05/06/17 20:56 ; Admin Dose 200 MG; Start 04/16/17 at 13:00 Heparin Sodium (Porcine) (Heparin (5000 Units/0.5 ml)) 5,000 unit BID SC Last administered on 04/30/17 21:03; Admin Dose 5,000 UNIT; Start 04/18/17 at 16:22; Status Future Hold Citalopram Hydrobromide (Celexa) 20 mg DAILY NGT Last administered on 08:43; Admin Dose 20 MG; Start 04/19/17 at 09:00 Hydralazine HCl 20 mg 20 mg Q6H PRN IV sbp ABOVE 160 Last administered on 12:43; Admin Dose 20 MG; Start 04/18/17 at 18:30 Caspofungin/ Sodium Chloride (Cancidas/NS) 250 ml @ 250 mls/hr Q24H IV Last administered on 05/07/17 09:46; Admin Dose 250 MLS/HR; Start 04/21/17 at 10:00 Chlorhexidine Gluconate (Peridex) 15 ml BID MT Last administered on 05/07/17 08:45; Admin Dose 15 ML; Start 04/22/17 at 21:00 Vitamin A/Vitamin D (Vitamin A & D Oint) 1 applic TID TOP Last administered on 05/07/17 08:45; Admin Dose 1 APPLIC; Start 04/22/17 at 21:00 Vitamin A/Vitamin D (Vitamin A & D Oint) 1 applic TID PRN TOP DRYNESS Last administered on 04/22/17 15:29; Admin Dose 1 APPLIC; Start 04/22/17 at 15:00 Acetaminophen/ Hydrocodone Bitart ([place] (5/325)) 1 tab Q6H GTB Last administered on 05/07/17 09:47; Admin Dose 1 TAB; Start 04/22/17 at 21:30 Spironolactone (Aldactone) 25 mg DAILY NGT Last administered on 05/07/17 09:47 ; Admin Dose 25 MG; Start 04/25/17 at 19:00; Status Future hold Diltiazem HCl 5 mg 5 mg Q1H PRN IV HEART RATE GREATER THAN 120 Last administered on 04/29/17 06:17; Admin Dose 5 MG; Start 04/29/17 at 05:00 Meropenem/Sodium Chloride (Merrem 500mg/50 ml(Pmx)) 50 ml @ 200 mls/hr Q12 IVPB Last administered on 05/07/17 09:46; Admin Dose 200 MLS/HR; Start at 12:00 Metronidazole 500 mg 500 mg Q8 GTB Last administered on 05/07/17 05:13; Admin Dose 500 MG; Start 04/30/17 at 22:00 Dopamine HCl/ Dextrose 250 ml @ 4.875 mls/ hr TITRATE IV Last administered on 05/01/17 07:07; Admin Dose 48.75 MLS/HR; Start 05/01/17 at 02:30 Vasopressin 60 unit/Dextrose 60 ml @ 1.2 mls/hr Q12H IV Last administered on 02:48; Admin Dose 1.2 MLS/HR; Start 05/01/17 at 02:30 Sodium Chloride 1,000 ml @ 0 mls/hr Q0M IV Last administered on 05/01/17 03: 00; Admin Dose 1,000 MLS/HR; Start 05/01/17 at 03:00 Sodium Chloride 1,000 ml @ 0 mls/hr Q0M IV Last administered on 05/01/17 04: 00; Admin Dose 1,000 MLS/HR; Start 05/01/17 at 03:30 Norepinephrine/ Dextrose (Levophed/D5W) 500 ml @ 1.87 mls/hr TITRATE IV Last administered on 05/01/17 10:13; Admin Dose 18.75 MLS/HR; Start 05/01/17 at 08: 00 Pantoprazole 40 mg 40 mg BID@06,18 IV Last administered on 05/07/17 05:13; Admin Dose 40 MG; Start 05/02/17 at 15:00 Diltiazem HCl (Cardizem-D5W 125 Mg/125 ml Drip) 125 ml @ 5 mls/hr TITRATE IV Last administered on 05/02/17 19:11; Admin Dose 5 MLS/HR; Start 05/02/17 at 19: 00 Furosemide (Lasix) 80 mg Q12 IV Last administered on 05/06/17 20:48; Admin Dose 80 MG; Start 05/03/17 at 09:00 Hydrocortisone (Solu-Cortef) 100 mg BID IV Last administered on 05/07/17 08:45 ; Admin Dose 100 MG; Start 05/04/17 at 21:00 Valacyclovir HCl (Valtrex) 1,000 mg DAILY GTB Last administered on 05/07/17 08 :43; Admin Dose 1,000 MG; Start 05/06/17 at 09:00 Metoprolol Tartrate 25 mg 25 mg QID GTB ; Start 05/07/17 at 09:00 Albumin Human (Albumin Human 25%) 100 ml @ 100 mls/hr ONCE ONCE IV Last administered on 05/07/17 09:49; Admin Dose 100 MLS/HR; Start 05/07/17 at 10:00 ; Stop 05/07/17 at 10:59 Assessment/Plan Chief Complaint/Hosp Course IMP: 1. Status post septic shock secondary to above likely aspiration pneumonia. Now on mechanical ventilation via tracheostomy. 2. Multifocal pneumonia aspiration vs.HCAP, persistent leukocytosis chest x-ray shows improved lung aeration. 3. Hypercapnic Respiratory Failure--likely due to critical illness neuropathy now on mechanical ventilation via tracheostomy, 4. Status post lactic acidosis. 5. Demand Ischemia, atrial fibrillation with rapid ventricular rate currently rate controlled. 6. Cholecystitis stable, not for surgical intervention at present 7. Persistent leukocytosis continue ID recommendations RECS: 1. Continue mechanical ventilation. Continue current ventilator settings not for weaning. 2. Oral care. 3. Aspiration precautions. 4. Continue vasopressors as needed. 5. Continue antibiotics ID recommendations 6. Continue physical therapy if tolerated. 7. Palliative care evaluation Critical care time 40 minutes. Stable for transfer to telemetry, consider Isbell eval Problems: DARWIN CRAWFORD MD, [facility] May 07, 2017 10:42
[2017-05-07] MEDS: hydrALAzine 20 MG INJ IV PRN (12:23)
--- NOTE | 2017-05-07 14:24 | CONS ---
Date/Time of Note Date/Time of Note DATE: 05/07/17 TIME: 14:19 Assessment/Plan Assessment/Plan Chief Complaint/Hosp Course ID PROGRESS NOTE CURRENT ABX +>Cancidas #, MERREM, Flagyl, Valtrex s/p Merrem #14 days-> DC'd 04/26 24H INTERVAL SUMMARY/HOSPITAL COURSE * Awake, alert, responsive, VSS, NAD, on the Vent via TRACH -- * s/p HD yesterday, Spouse not present at this time, Lip lesions improving slowly * 05/06/17 RESPIRATORY CULTURE Preliminary Organism 1 GRAM NEGATIVE [place] QUANTITY 2+ * LABS 05/07/17 0410 05/07/17 0410 PHYSICAL EXAMINATION: GENERAL: 66 yo F, stable on the Vent HEENT: Atraumatic, (+)Lip crusting lesions healing NECK: (+)Trach in place secure to VENT CHEST: Rise symmetrical w/coarse BS, scattered rales/rhonchi ABDOMEN: Soft, peg EXTREMITIES: Warm, moves extremities ID ASSESSMENT: 66 yo F w/PMHx tongue cancer, chronic trach re-admit [facility] from [facility] with: 1. s/p Acute severe sepsis/shock on admission w/(+)fever, tachycardia, lactic acidosis, leukocytosis, (+)troponin leak = RESOLVED 2. Fungemia => repeat BCx negative 3. Acute respiratory failure = recurrent issue s/p intubation x3rd episode w/ extubation, now with Trach secure to Vent 3. HCAP=> Recurrent Aspiration PNA post emesis // Hx of GNR tracheobronchitis * Sputum 04/21/17 (+)Yeast * 04/06/17 (+)PSAR = MDRO * 04/06/17 (+)Proteus Mirabilis 4. Acute CHF w/elevated BNP 8000 in setting tachycardia, sepsis, pulmonary edema on CXR 5. s/p Nausea w/emesis on admission -> GI on the case * Query: DM Autonomic Gastroparesis * GERD 6. Cholelithiasis w/dilated CBD->HIDA scan (+cholecystitis 04/12/17=> s/p Mansi Drain 04/17/17, no surgery per GI 7. Acute renal failure = started on HD 8. Dysphagia sp PEG placement 9. Paroxysmal Afib 10. NSTEMI in setting sepsis, tachycardia, acute hypoxic respiratory failure, acute CHF exacerbation 11. Elevated glucose - iatrogenic diabetes while on IV steroids 12. Leukocytosis = partial steroids demargination 13. Lip lesions => DDx pressure ulcer from ETT vs HSV ->on Valtrex 14. s/p GIB associates with Acute on chronic anemia secondary to AVM ==> stopped , status post EGD on May 02 with injection of epinephrine 15. Recent (+)C.Diff on 03/07/16 (treated) w/(-)C.Diff 03/20/17 (-) MRSA Nares screen (04/03/17) INVASIVES: Trach, PEG, FC, R-FEM Amrit (05/04/17) ABX ALLERGY: Iodine CURRENT ABX: =>Cancidas #, Flagyl, Valtrex, Merrem Merrem #14 total -> DC'd 04/26=> Restarted ID PLAN: * Continue current ABX -- will repeat respiratory cultures = recurrent aspiration syndrome * Follow pulm, renal, GI recs . Problems: Consultation Date/Type/Reason Admit Date/Time Apr 11, 2017 at 11:28 Initial Consult Date 04/11/17 Type of Consultation: ID Referring Provider: NINA MACIEL DO Exam/Review of Systems Vital Signs Vitals Vital Signs Date Time Temp Pulse Resp B/P Pulse Ox O2 Delivery O2 Flow Rate FiO2 05/07/17 13:15 84 21 128/68 100 Mechanical Ventilator 05/07/17 12:00 96.7 05/07/17 12:00 35 Intake and Output 05/06/17 05/06/17 05/07/17 15:00 23:00 07:00 Intake Total 900 ml 600 ml 350 ml Output Total 4525 ml 85 ml Balance -3625 ml 515 ml 350 ml Results Result Diagram: 05/07/17 0410 05/07/17 0410 Results 24 hrs Laboratory Tests Test 05/06/17 17:33 05/07/17 01:03 05/07/17 04:10 05/07/17 12:26 Bedside Glucose 140 140 142 White Blood Count 20.6 #H Red Blood Count 2.72 L Hemoglobin 8.1 L Hematocrit 24.2 L Mean Corpuscular Volume 89.0 Mean Corpuscular Hemoglobin 29.8 Mean Corpuscular Hemoglobin Concent 33.5 Red Cell Distribution Width 19.4 H Platelet Count 88 L Mean Platelet Volume 13.7 H Neutrophils % 90.3 H Lymphocytes % 2.7 L Monocytes % 4.6 Eosinophils % 0.0 Basophils % 0.1 Nucleated Red Blood Cells % 0.0 Neutrophils # 18.5 H Lymphocytes # 0.6 L Monocytes # 1.0 H Eosinophils # 0.0 Basophils # 0.0 Nucleated Red Blood Cells # 0.0 Sodium Level 140 Potassium Level 3.0 L Chloride Level 97 Carbon Dioxide Level 30 Anion Gap 16 Blood Urea Nitrogen 57 H Creatinine 1.71 H Glucose Level 109 Calcium Level 8.5 Phosphorus Level 3.2 Magnesium Level 2.0 Medications Medications Current Medications Aspirin (Aspirin) 325 mg DAILY NGT Last administered on 04/30/17 08:43; Admin Dose 325 MG; Start 04/12/17 at 09:00; Status Future Hold Metoprolol Tartrate (Lopressor) 5 mg Q4H PRN IV HR>110 Hold SBP<110 Last administered on 04/20/17 17:36; Admin Dose 5 MG; Start 04/11/17 at 13:30 Miscellaneous Information 1 ea NOTE XX ; Start 04/11/17 at 16:30 Glucose (Glutose) 15 gm Q15M PRN PO DECREASED GLUCOSE Last administered on 05/07 03:27; Admin Dose 15 GM; Start 04/11/17 at 16:30 Glucose (Glutose) 22.5 gm Q15M PRN PO DECREASED GLUCOSE; Start 04/11/17 at 16: 30 Dextrose (D50w Syringe) 25 ml Q15M PRN IV DECREASED GLUCOSE Last administered on 04/12/17 23:56; Admin Dose 25 ML; Start 04/11/17 at 16:30 Dextrose (D50w Syringe) 50 ml Q15M PRN IV DECREASED GLUCOSE; Start 04/11/17 at 16:30 Glucagon (Glucagen) 1 mg Q15M PRN IM DECREASED GLUCOSE; Start 04/11/17 at 16:30 Glucose (Glutose) 15 gm Q15M PRN BUCCAL DECREASED GLUCOSE; Start 04/11/17 at 16 :30 Metoclopramide HCl (Reglan) 10 mg Q6 IV Last administered on 05/07/17 12:15; Admin Dose 10 MG; Start 04/12/17 at 18:00 Insulin Aspart (Novolog Insulin Pen) NOVOLOG *MILD* ALGORI... Q6H SC Last administered on 05/07/17 12:28; Admin Dose 1 UNIT; Start 04/15/17 at 00:00 IV Flush (NS 10 ml) 10 ml PRN PRN IV FLUSH LINE; Start 04/15/17 at 13:00 Amiodarone HCl (Cordarone) 200 mg BID GTB Last administered on 05/07/17 11:30 ; Admin Dose 200 MG; Start 04/16/17 at 13:00 Heparin Sodium (Porcine) (Heparin (5000 Units/0.5 ml)) 5,000 unit BID SC Last administered on 04/30/17 21:03; Admin Dose 5,000 UNIT; Start 04/18/17 at 16:22; Status Future Hold Citalopram Hydrobromide (Celexa) 20 mg DAILY NGT Last administered on 08:43; Admin Dose 20 MG; Start 04/19/17 at 09:00 Hydralazine HCl 20 mg 20 mg Q6H PRN IV sbp ABOVE 160 Last administered on 12:23; Admin Dose 20 MG; Start 04/18/17 at 18:30 Caspofungin/ Sodium Chloride (Cancidas/NS) 250 ml @ 250 mls/hr Q24H IV Last administered on 05/07/17 09:46; Admin Dose 250 MLS/HR; Start 04/21/17 at 10:00 Chlorhexidine Gluconate (Peridex) 15 ml BID MT Last administered on 05/07/17 08:45; Admin Dose 15 ML; Start 04/22/17 at 21:00 Vitamin A/Vitamin D (Vitamin A & D Oint) 1 applic TID TOP Last administered on 05/07/17 14:17; Admin Dose 1 APPLIC; Start 04/22/17 at 21:00 Vitamin A/Vitamin D (Vitamin A & D Oint) 1 applic TID PRN TOP DRYNESS Last administered on 04/22/17 15:29; Admin Dose 1 APPLIC; Start 04/22/17 at 15:00 Acetaminophen/ Hydrocodone Bitart ([place] (5/325)) 1 tab Q6H GTB Last administered on 05/07/17 11:50; Admin Dose 1 TAB; Start 04/22/17 at 21:30 Spironolactone (Aldactone) 25 mg DAILY NGT Last administered on 05/07/17 09:47 ; Admin Dose 25 MG; Start 04/25/17 at 19:00; Status Future hold Diltiazem HCl 5 mg 5 mg Q1H PRN IV HEART RATE GREATER THAN 120 Last administered on 04/29/17 06:17; Admin Dose 5 MG; Start 04/29/17 at 05:00 Meropenem/Sodium Chloride (Merrem 500mg/50 ml(Pmx)) 50 ml @ 200 mls/hr Q12 IVPB Last administered on 05/07/17 09:46; Admin Dose 200 MLS/HR; Start at 12:00 Metronidazole 500 mg 500 mg Q8 GTB Last administered on 05/07/17 14:17; Admin Dose 500 MG; Start 04/30/17 at 22:00 Dopamine HCl/ Dextrose 250 ml @ 4.875 mls/ hr TITRATE IV Last administered on 05/01/17 07:07; Admin Dose 48.75 MLS/HR; Start 05/01/17 at 02:30 Vasopressin 60 unit/Dextrose 60 ml @ 1.2 mls/hr Q12H IV Last administered on 02:48; Admin Dose 1.2 MLS/HR; Start 05/01/17 at 02:30 Sodium Chloride 1,000 ml @ 0 mls/hr Q0M IV Last administered on 05/01/17 03: 00; Admin Dose 1,000 MLS/HR; Start 05/01/17 at 03:00 Sodium Chloride 1,000 ml @ 0 mls/hr Q0M IV Last administered on 05/01/17 04: 00; Admin Dose 1,000 MLS/HR; Start 05/01/17 at 03:30 Norepinephrine/ Dextrose (Levophed/D5W) 500 ml @ 1.87 mls/hr TITRATE IV Last administered on 05/01/17 10:13; Admin Dose 18.75 MLS/HR; Start 05/01/17 at 08: 00 Pantoprazole 40 mg 40 mg BID@06,18 IV Last administered on 05/07/17 05:13; Admin Dose 40 MG; Start 05/02/17 at 15:00 Diltiazem HCl (Cardizem-D5W 125 Mg/125 ml Drip) 125 ml @ 5 mls/hr TITRATE IV Last administered on 05/02/17 19:11; Admin Dose 5 MLS/HR; Start 05/02/17 at 19: 00 Furosemide (Lasix) 80 mg Q12 IV Last administered on 05/07/17 11:28; Admin Dose 80 MG; Start 05/03/17 at 09:00 Hydrocortisone (Solu-Cortef) 100 mg BID IV Last administered on 05/07/17 08:45 ; Admin Dose 100 MG; Start 05/04/17 at 21:00 Valacyclovir HCl (Valtrex) 1,000 mg DAILY GTB Last administered on 05/07/17 08 :43; Admin Dose 1,000 MG; Start 05/06/17 at 09:00 Metoprolol Tartrate (Lopressor) 25 mg QID GTB Last administered on 05/07/17 11 :39; Admin Dose 25 MG; Start 05/07/17 at 09:00 MARGOT WILLS NP May 07, 2017 14:24
--- NOTE | 2017-05-07 14:58 | PN ---
Date/Time of Note Date/Time of Note DATE: 05/07/17 TIME: 14:52 Assessment/Plan Lines/Catheters IV Catheter Type (from [facility]): BHARTI Latif in Place (from [facility]): Yes Assessment/Plan Chief Complaint/Hosp Course 1. Cholelithiasis ? cholecystitis: Ct abd: sludge and small stones in the gallbladder. No gallbladder wall thickening is noted with some pericholecystic fluid is present. Patient off pressors; GT/OGT no output; HIDA positive; IR drain placement cancelled by radiologist since US without evidence of infection. Therefore, Dr. Guadalupe believes the HIDA is false positive. Tolerating tube feeds; no abdominal pain/discomfort; LFT's increased, bili nl (s/p code with blood loss); +bowel function -No surgical intervention required at this time 2. Pneumonia: Recurrent; no fevers; reintubated; less secretion sputum cx: PSEUDOMONAS AERUGINOSA, K PNEUMO ESBL, NASRIN GLABRATA; appears comfortable -pulmonary toilet -abx per ID 3. Vent dependent respiratory failure: 2/2 aspiration PNA+ CHF;reintubated and extubated, coded 04/21 and 05/01; currently reintubated -as above 4. Septic shock: improved -on abx -supportive 5. Uncontrolled Afib: s/p amiodarone drip, on oral amiodarone; episodes of Afib Now SR -medical optimization -lovenox 6. Elevated troponin:NSTEMI; septic shock/demand ischemia -trend 7. Leukocytosis with lactic acidosis: 2/2 pneumonia vs. steroids vs.fungemia vs other (urine, repeat blood cultures negative);wbc improved -abx, antifungals -judicious fluid management -supportive measures 8. KEYONNA: likely 2/2 septic shock; s/p code; HD today -judicious fluid management -avoid nephrotoxic agents 9. CHF: BNP elevated -judicious fluid management -medical optimization 10. Adrenal Insufficiency -solucortef 11. Hypomagnesemia: normalized 12. Hypothyroidism; tsh elevated -on synthroid 13. Macrocytic anemia: chronic vs. dilutional vs. acute bleed vs. b12/folate deficiency; neeru blood noted orally during code; prbc transfusion -monitor -Transfuse as needed 14. Transaminitis: likely 2/2 septic shock vs. cholecystitis; up s/p code -trend, monitor 15. Diarrhea: 2/2 abx vs. enteritis: resolved; tolerating tf -? probiotics 16. Thrombocytosis: 2/2 inflammatory vs. drug induced vs. other -monitor -bleeding precautions -supportive 17. Encephalopathy: 2/2 toxic metabolic vs. anoxic injury; CT: No acute intracranial hemorrhage or mass effect. Mild chronic microvascular disease and intracranial atherosclerosis; EEG shows no seizure activity -supportive 18. Bilateral upper extremity edema: likely 2/2 decreased movement vs. thrombosis; initial doppler negative, repeat doppler left arm (+) Thrombus -elevate extremities -supportive -anticoagulation 19. Hypoalbuminemia: 2/2 malnutrition +/- inflammation; decreased; tolerating tf ; -nutrition optimization -as above 20 Hypernatremia: normalized -judicious fluid management 21. Hypocalcemia:normalized -optimize nutrition 22. Fungemia -antifungals 23. Hyperkalemia, now with hypokalemia -optimize lytes 24. Oral lesions Patient seen and examined in collaboration with Dr. Justus Antonio Problems: Subjective 24 Hr Interval Summary HD again today- tolerated well. BP labile. Tolerating tf. +bowel function. No noted bleeding. Comfortable on vent. No c/o metzger, dizziness, sz, sob, cp, palpitations,, n/v/d, fevers, chills, dysuria. some oozing from trach site. Exam/Review of Systems Vital Signs Vitals Vital Signs Date Time Temp Pulse Resp B/P Pulse Ox O2 Delivery O2 Flow Rate FiO2 05/07/17 13:15 84 21 128/68 100 Mechanical Ventilator 05/07/17 12:00 96.7 05/07/17 12:00 35 Intake and Output 05/06/17 05/06/17 05/07/17 15:00 23:00 07:00 Intake Total 900 ml 600 ml 350 ml Output Total 4525 ml 85 ml Balance -3625 ml 515 ml 350 ml Exam Free Text/Dictation Constitutional: somnolent, easily wakes, appears comfortable Head: atraumatic, normocephalic Eyes: PERRL, nl lids, nl sclera ENMT: No mucosa pink and moist (pink and moist with perioral lesions) Neck: non-tender, supple, tracheostomy (min dried blood) Respiratory: diminished, comfortable on vent Cardiovascular: nl pulses, regular rate and rhythm, NSR, Gastrointestinal: min distended, GT tubes site no erythema, no drainage, non tenderness, bowel sounds x 4 quads Genitourinary - Female: nl external genitalia Musculoskeletal: nl extremities to inspection Extremities: normal pulses, bilateral upper/lower extremity edema (min improvement) Neurological: responsive Skin: nl turgor, No rash or lesions Lymph: nl lymph nodes Results Result Diagram: 05/07/17 0410 05/07/17 0410 ADDISON FREGOSO NP May 07, 2017 14:58
[2017-05-07] MEDS ORDERED: ALBUMIN HUMAN 25% 100 ML ONE ×2 (18:02→18:03)
--- NOTE | 2017-05-07 18:08 | CONS ---
Date/Time of Note Date/Time of Note DATE: 05/07/17 TIME: 18:07 Assessment/Plan Assessment/Plan Chief Complaint/Hosp Course Patient is a 66 year old female with a history of diabetes mellitus hypertension chronic vent dependency, history of tongue cancer status post resection has a G-tube. GI consult was called in for GI bleeding anemia requiring blood transfusion. Her other problems include aspiration pneumonia, atrial fibrillation well controlled. Patient also had a sepsis and fungemia successfully treated. Her G-tube aspirate shows burgundy colored fluid. Patient is off all the pressor support. She is on a steroid for adrenal insufficiency Problems: Additional Assessment/Plan Additional Assessment/Plan #1 GI bleeding manifested in the form of hematemesis and large burgundy color aspirate through G-tube, successful hemostasis achieved. No further bleeding 2. Vent dependent respiratory failure 3. Atrial fibrillation 4. Diabetes mellitus 5. Hypertension 6. Status post septic shock 7. Anemia, no active bleeding 8. Prerenal azotemia, patient is on dialysis now 9. Status post cardiac arrest in the past 10. Leukocytosis 11. Encephalopathy Plan Transfuse 2 units of packed cell RBC bring hemoglobin greater than 7.5 Continue with PPI Refrain from all kind of blood thinner. Antibiotic as per ID Consultation Date/Type/Reason Admit Date/Time Apr 11, 2017 at 11:28 Initial Consult Date 05/01/17 Type of Consultation: ID Referring Provider: NINA MACIEL DO 24 HR Interval Summary Constitutional: improved Exam/Review of Systems Vital Signs Vitals Vital Signs Date Time Temp Pulse Resp B/P Pulse Ox O2 Delivery O2 Flow Rate FiO2 05/07/17 17:00 93 27 100 35 05/07/17 16:00 121/66 Mechanical Ventilator 05/07/17 15:45 97.2 Intake and Output 05/06/17 05/06/17 05/07/17 15:00 23:00 07:00 Intake Total 900 ml 600 ml 600 ml Output Total 4525 ml 85 ml 150 ml Balance -3625 ml 515 ml 450 ml Exam Constitutional: alert, oriented, well developed Psych: nl mood/affect, no complaints Head: atraumatic, normocephalic Eyes: EOMI, PERRL, nl conjunctiva, nl lids, nl sclera ENMT: nl external ears & nose, nl lips & teeth, nl nasal mucosa & septum Neck: non-tender, supple Respiratory: clear to auscultation, normal air movement Cardiovascular: nl pulses, regular rate and rhythm Gastrointestinal: nl liver, spleen, non-tender, soft Musculoskeletal: nl extremities to inspection, nl gait and stance Extremities: normal pulses Neurological: [employer] II-XII intact, nl mental status, nl speech, nl strength Skin: nl turgor, No rash or lesions Lymph: nl lymph nodes Results Result Diagram: 05/07/17 0410 05/07/17 0410 Results 24 hrs Laboratory Tests Test 05/07/17 01:03 05/07/17 04:10 05/07/17 12:26 Bedside Glucose 140 142 White Blood Count 20.6 #H Red Blood Count 2.72 L Hemoglobin 8.1 L Hematocrit 24.2 L Mean Corpuscular Volume 89.0 Mean Corpuscular Hemoglobin 29.8 Mean Corpuscular Hemoglobin Concent 33.5 Red Cell Distribution Width 19.4 H Platelet Count 88 L Mean Platelet Volume 13.7 H Neutrophils % 90.3 H Lymphocytes % 2.7 L Monocytes % 4.6 Eosinophils % 0.0 Basophils % 0.1 Nucleated Red Blood Cells % 0.0 Neutrophils # 18.5 H Lymphocytes # 0.6 L Monocytes # 1.0 H Eosinophils # 0.0 Basophils # 0.0 Nucleated Red Blood Cells # 0.0 Sodium Level 140 Potassium Level 3.0 L Chloride Level 97 Carbon Dioxide Level 30 Anion Gap 16 Blood Urea Nitrogen 57 H Creatinine 1.71 H Glucose Level 109 Calcium Level 8.5 Phosphorus Level 3.2 Magnesium Level 2.0 Medications Medications Current Medications Aspirin (Aspirin) 325 mg DAILY NGT Last administered on 04/30/17 08:43; Admin Dose 325 MG; Start 04/12/17 at 09:00; Status Future Hold Metoprolol Tartrate (Lopressor) 5 mg Q4H PRN IV HR>110 Hold SBP<110 Last administered on 04/20/17 17:36; Admin Dose 5 MG; Start 04/11/17 at 13:30 Miscellaneous Information 1 ea NOTE XX ; Start 04/11/17 at 16:30 Glucose (Glutose) 15 gm Q15M PRN PO DECREASED GLUCOSE Last administered on 05/07 03:27; Admin Dose 15 GM; Start 04/11/17 at 16:30 Glucose (Glutose) 22.5 gm Q15M PRN PO DECREASED GLUCOSE; Start 04/11/17 at 16: 30 Dextrose (D50w Syringe) 25 ml Q15M PRN IV DECREASED GLUCOSE Last administered on 04/12/17 23:56; Admin Dose 25 ML; Start 04/11/17 at 16:30 Dextrose (D50w Syringe) 50 ml Q15M PRN IV DECREASED GLUCOSE; Start 04/11/17 at 16:30 Glucagon (Glucagen) 1 mg Q15M PRN IM DECREASED GLUCOSE; Start 04/11/17 at 16:30 Glucose (Glutose) 15 gm Q15M PRN BUCCAL DECREASED GLUCOSE; Start 04/11/17 at 16 :30 Metoclopramide HCl (Reglan) 10 mg Q6 IV Last administered on 05/07/17 16:29; Admin Dose 10 MG; Start 04/12/17 at 18:00 Insulin Aspart (Novolog Insulin Pen) NOVOLOG *MILD* ALGORI... Q6H SC Last administered on 05/07/17 12:28; Admin Dose 1 UNIT; Start 04/15/17 at 00:00 IV Flush (NS 10 ml) 10 ml PRN PRN IV FLUSH LINE; Start 04/15/17 at 13:00 Amiodarone HCl (Cordarone) 200 mg BID GTB Last administered on 05/07/17 11:30 ; Admin Dose 200 MG; Start 04/16/17 at 13:00 Heparin Sodium (Porcine) (Heparin (5000 Units/0.5 ml)) 5,000 unit BID SC Last administered on 04/30/17 21:03; Admin Dose 5,000 UNIT; Start 04/18/17 at 16:22; Status Future Hold Citalopram Hydrobromide (Celexa) 20 mg DAILY NGT Last administered on 08:43; Admin Dose 20 MG; Start 04/19/17 at 09:00 Hydralazine HCl 20 mg 20 mg Q6H PRN IV sbp ABOVE 160 Last administered on 12:23; Admin Dose 20 MG; Start 04/18/17 at 18:30 Caspofungin/ Sodium Chloride (Cancidas/NS) 250 ml @ 250 mls/hr Q24H IV Last administered on 05/07/17 09:46; Admin Dose 250 MLS/HR; Start 04/21/17 at 10:00 Chlorhexidine Gluconate (Peridex) 15 ml BID MT Last administered on 05/07/17 08:45; Admin Dose 15 ML; Start 04/22/17 at 21:00 Vitamin A/Vitamin D (Vitamin A & D Oint) 1 applic TID TOP Last administered on 05/07/17 14:17; Admin Dose 1 APPLIC; Start 04/22/17 at 21:00 Vitamin A/Vitamin D (Vitamin A & D Oint) 1 applic TID PRN TOP DRYNESS Last administered on 04/22/17 15:29; Admin Dose 1 APPLIC; Start 04/22/17 at 15:00 Acetaminophen/ Hydrocodone Bitart ([place] (5/325)) 1 tab Q6H GTB Last administered on 05/07/17 16:28; Admin Dose 1 TAB; Start 04/22/17 at 21:30 Spironolactone (Aldactone) 25 mg DAILY NGT Last administered on 05/07/17 09:47 ; Admin Dose 25 MG; Start 04/25/17 at 19:00; Status Future hold Diltiazem HCl 5 mg 5 mg Q1H PRN IV HEART RATE GREATER THAN 120 Last administered on 04/29/17 06:17; Admin Dose 5 MG; Start 04/29/17 at 05:00 Meropenem/Sodium Chloride (Merrem 500mg/50 ml(Pmx)) 50 ml @ 200 mls/hr Q12 IVPB Last administered on 05/07/17 09:46; Admin Dose 200 MLS/HR; Start at 12:00 Metronidazole 500 mg 500 mg Q8 GTB Last administered on 05/07/17 14:17; Admin Dose 500 MG; Start 04/30/17 at 22:00 Dopamine HCl/ Dextrose 250 ml @ 4.875 mls/ hr TITRATE IV Last administered on 05/01/17 07:07; Admin Dose 48.75 MLS/HR; Start 05/01/17 at 02:30 Vasopressin 60 unit/Dextrose 60 ml @ 1.2 mls/hr Q12H IV Last administered on 02:48; Admin Dose 1.2 MLS/HR; Start 05/01/17 at 02:30 Sodium Chloride 1,000 ml @ 0 mls/hr Q0M IV Last administered on 05/01/17 03: 00; Admin Dose 1,000 MLS/HR; Start 05/01/17 at 03:00 Sodium Chloride 1,000 ml @ 0 mls/hr Q0M IV Last administered on 05/01/17 04: 00; Admin Dose 1,000 MLS/HR; Start 05/01/17 at 03:30 Norepinephrine/ Dextrose (Levophed/D5W) 500 ml @ 1.87 mls/hr TITRATE IV Last administered on 05/01/17 10:13; Admin Dose 18.75 MLS/HR; Start 05/01/17 at 08: 00 Pantoprazole 40 mg 40 mg BID@06,18 IV Last administered on 05/07/17 16:28; Admin Dose 40 MG; Start 05/02/17 at 15:00 Diltiazem HCl (Cardizem-D5W 125 Mg/125 ml Drip) 125 ml @ 5 mls/hr TITRATE IV Last administered on 05/02/17 19:11; Admin Dose 5 MLS/HR; Start 05/02/17 at 19: 00 Furosemide (Lasix) 80 mg Q12 IV Last administered on 05/07/17 11:28; Admin Dose 80 MG; Start 05/03/17 at 09:00 Hydrocortisone (Solu-Cortef) 100 mg BID IV Last administered on 05/07/17 08:45 ; Admin Dose 100 MG; Start 05/04/17 at 21:00 Valacyclovir HCl (Valtrex) 1,000 mg DAILY GTB Last administered on 05/07/17 08 :43; Admin Dose 1,000 MG; Start 05/06/17 at 09:00 Metoprolol Tartrate (Lopressor) 25 mg QID GTB Last administered on 05/07/17 16 :28; Admin Dose 25 MG; Start 05/07/17 at 09:00 ALYSSA THOMPSON MD May 07, 2017 18:08
[2017-05-08] VITALS (57 sets, daily range): BP systolic 84–163; BP diastolic 55–106; PULSE 67–90; RESP 11–25
[2017-05-08] MEDS: LEVALBUTEROL (HFA) 15 GM INHALER INH SCH ×4 (01:09→19:19)
[2017-05-08] MEDS: HYDROCODONE/APAP (5/325) TAB GTB SCH ×4 (03:42→20:42)
[2017-05-08 05:02] LABS: ABNORMAL IP MESSAGE 1; BASOPHILS % 0.1 % (0.0-2.0); EOSINOPHILS % 0.1 % (0.0-7.0); HEMATOCRIT 25.1 % (37.0-47.0); HEMOGLOBIN 8.4 g/dl (12.0-16.0); LYMPHOCYTES # 0.5 10^3/ul (0.8-2.9); LYMPHOCYTES % 3.3 % (15.0-51.0); MEAN CORPUSCULAR HEMOGLOBIN 30.2 pg (29.0-33.0); MEAN CORPUSCULAR HGB CONC 33.5 g/dl (32.0-37.0); MEAN CORPUSCULAR VOLUME 90.3 fl (82.0-101.0); MEAN PLATELET VOLUME 13.9 fl (7.4-10.4); MONOCYTE # 0.8 10^3/ul (0.3-0.9); MONOCYTES % 4.8 % (0.0-11.0); NEUTROPHIL # 13.6 10^3/ul (1.6-7.5); NEUTROPHILS % 87.5 % (39.0-77.0); PLATELET COUNT 99 10^3/UL (140-415); RED BLOOD COUNT 2.78 10^6/ul (4.20-5.40); RED CELL DISTRIBUTION WIDTH 19.6 % (11.5-14.5); WHITE BLOOD COUNT 15.6 10^3/ul (4.8-10.8)
[2017-05-08 05:34] LABS: POSITIVE DIFF @See below
[2017-05-08 05:57] LABS: ALBUMIN 2.7 g/dl (3.3-4.9); BILIRUBIN,INDIRECT 0.4 mg/dl (0-1.1); BILIRUBIN,TOTAL 0.4 mg/dl (0.2-1.3); CREATININE 1.63 mg/dl (0.44-1.00)
[2017-05-08] MEDS: METOCLOPRAMIDE 10 MG INJ IV SCH ×3 (06:03→17:20)
[2017-05-08] MEDS: PANTOPRAZOLE 40 MG INJ IV SCH ×2 (06:03→17:20)
[2017-05-08] MEDS: metroNIDAZOLE 500 MG TAB GTB SCH ×3 (06:03→21:46)
[2017-05-08] MEDS: INSULIN ASPART [NOVOLOG] 3 ML PEN SC SCH ×3 (06:06→17:24)
[2017-05-08 06:48] LABS: ALBUMIN/GLOBULIN RATIO 1.5; CALCIUM 8.3 mg/dl (8.4-10.2); POTASSIUM 3.4 mmol/L (3.5-5.1); TOTAL PROTEIN 4.5 g/dl (6.1-8.1)
[2017-05-08] MEDS: HEPARIN 1000 UNITS/ML 10 ML INJ CATHETER SCH (07:29)
--- NOTE | 2017-05-08 07:36 | PN ---
Date/Time of Note Date/Time of Note DATE: 05/08/17 TIME: 07:35 Assessment/Plan VTE Prophylaxis VTE Prophylaxis Intervention: other Lines/Catheters IV Catheter Type (from Nrs): Amrit Urinary Cath still in place: Yes Reason Cath still needed: other (indicate) Assessment/Plan Chief Complaint/Hosp Course 1. acute on chronic hypoxemic respiratory failure: 2. NSTEMI: due to demand ischemia. 3. CHF/ fluid overload: due to diastolic heart failure 4. moderate 5. Arrhythmia and P afib, frequent PVC: currently in NSR. 6. ANEMIA 7. pneumonia, severe leukocytosis now. 8. sepsis and shock: BACK ON 3 pressors now 9. Anasarca 10. s/p cardiopulm arrest due to resp failure 11. renal failure 12. coagulopathy Rec: off of ASA due to active bleeding and severe anemia and coagulopathy. resp care as per PULM Team. correct lytes prn. keep K > 4, Mg > 2 cont ICU care. CONT betablocker as tolerated. cardizem IV prn . thyroid supplement . will closely monitor in ICU. HD/ ultrafiltration as per renal. transfuse prn will check ECG Problems: Subjective 24 Hr Interval Summary Free Text/Dictation CARDIOLOGY FOLLOW UP NOTE: D/W staff , D/W Dr Valderrama rhythm was reviewed. pt has remained in NSR . no Afib over night but still with Frequent PVC. getting HD and tolerated it well so far pt still s/p trach on vent Objective: General: s/p trach on vent HEENT: NC/AT. . oropharynx with old blood and multiple lesions. . NECK: NO JVD. no stridor. s/p trach on vent CV: RRR. systolic ejection murmur; no gallop or rubs. PULM: + diffuse rhonchi. GI: SOFT, NT, ND, no rebound or guarding s/p PEG Extremity: 3+ B/L LE edema. no clubbing. neuro: awake and alert and responds appropriately Psych: calm rectal: deferred Derm: multiple echymosis Exam/Review of Systems Vital Signs Vitals Vital Signs Date Time Temp Pulse Resp B/P Pulse Ox O2 Delivery O2 Flow Rate FiO2 05/08/17 06:00 76 24 134/70 100 Mechanical Ventilator 05/08/17 05:20 30 05/08/17 04:00 98.1 Intake and Output 05/07/17 05/07/17 05/08/17 15:00 23:00 07:00 Intake Total 1450 ml 750 ml 750 ml Output Total 6875 ml 405 ml 425 ml Balance -5425 ml 345 ml 325 ml Results Result Diagram: 05/08/17 0400 05/08/17 0400 Results 24 hrs Laboratory Tests Test 05/07/17 12:26 05/07/17 18:06 05/07/17 23:47 05/08/17 04:00 Bedside Glucose 142 129 144 White Blood Count 15.6 #H Red Blood Count 2.78 L Hemoglobin 8.4 L Hematocrit 25.1 L Mean Corpuscular Volume 90.3 Mean Corpuscular Hemoglobin 30.2 Mean Corpuscular Hemoglobin Concent 33.5 Red Cell Distribution Width 19.6 H Platelet Count 99 L Mean Platelet Volume 13.9 H Neutrophils % 87.5 H Lymphocytes % 3.3 L Monocytes % 4.8 Eosinophils % 0.1 Basophils % 0.1 Nucleated Red Blood Cells % 0.0 Neutrophils # 13.6 H Lymphocytes # 0.5 L Monocytes # 0.8 Eosinophils # 0.0 Basophils # 0.0 Nucleated Red Blood Cells # 0.0 Sodium Level 139 Potassium Level 3.4 L Chloride Level 99 Carbon Dioxide Level 29 Anion Gap 14 Blood Urea Nitrogen 54 H Creatinine 1.63 H Glucose Level 118 Calcium Level 8.3 L Phosphorus Level 2.7 Magnesium Level 2.0 Total Bilirubin 0.4 Direct Bilirubin 0.00 Indirect Bilirubin 0.4 Aspartate Amino Transf (AST/SGOT) 31 Alanine Aminotransferase (ALT/SGPT) 50 Alkaline Phosphatase 120 Total Protein 4.5 L Albumin 2.7 L Globulin 1.80 Albumin/Globulin Ratio 1.50 Test 05/08/17 06:05 Bedside Glucose 142 Medications Medications Current Medications Aspirin (Aspirin) 325 mg DAILY NGT Last administered on 04/30/17 08:43; Admin Dose 325 MG; Start 04/12/17 at 09:00; Status Future Hold Metoprolol Tartrate (Lopressor) 5 mg Q4H PRN IV HR>110 Hold SBP<110 Last administered on 04/20/17 17:36; Admin Dose 5 MG; Start 04/11/17 at 13:30 Miscellaneous Information 1 ea NOTE XX ; Start 04/11/17 at 16:30 Glucose (Glutose) 15 gm Q15M PRN PO DECREASED GLUCOSE Last administered on 05/07 03:27; Admin Dose 15 GM; Start 04/11/17 at 16:30 Glucose (Glutose) 22.5 gm Q15M PRN PO DECREASED GLUCOSE; Start 04/11/17 at 16: 30 Dextrose (D50w Syringe) 25 ml Q15M PRN IV DECREASED GLUCOSE Last administered on 04/12/17 23:56; Admin Dose 25 ML; Start 04/11/17 at 16:30 Dextrose (D50w Syringe) 50 ml Q15M PRN IV DECREASED GLUCOSE; Start 04/11/17 at 16:30 Glucagon (Glucagen) 1 mg Q15M PRN IM DECREASED GLUCOSE; Start 04/11/17 at 16:30 Glucose (Glutose) 15 gm Q15M PRN BUCCAL DECREASED GLUCOSE; Start 04/11/17 at 16 :30 Metoclopramide HCl (Reglan) 10 mg Q6 IV Last administered on 05/08/17 06:03; Admin Dose 10 MG; Start 04/12/17 at 18:00 Insulin Aspart (Novolog Insulin Pen) NOVOLOG *MILD* ALGORI... Q6H SC Last administered on 05/08/17 06:06; Admin Dose 2 UNIT; Start 04/15/17 at 00:00 IV Flush (NS 10 ml) 10 ml PRN PRN IV FLUSH LINE; Start 04/15/17 at 13:00 Amiodarone HCl (Cordarone) 200 mg BID GTB Last administered on 05/07/17 11:30 ; Admin Dose 200 MG; Start 04/16/17 at 13:00 Heparin Sodium (Porcine) (Heparin (5000 Units/0.5 ml)) 5,000 unit BID SC Last administered on 04/30/17 21:03; Admin Dose 5,000 UNIT; Start 04/18/17 at 16:22; Status Future Hold Citalopram Hydrobromide (Celexa) 20 mg DAILY NGT Last administered on 08:43; Admin Dose 20 MG; Start 04/19/17 at 09:00 Hydralazine HCl 20 mg 20 mg Q6H PRN IV sbp ABOVE 160 Last administered on 12:23; Admin Dose 20 MG; Start 04/18/17 at 18:30 Caspofungin/ Sodium Chloride (Cancidas/NS) 250 ml @ 250 mls/hr Q24H IV Last administered on 05/07/17 09:46; Admin Dose 250 MLS/HR; Start 04/21/17 at 10:00 Chlorhexidine Gluconate (Peridex) 15 ml BID MT Last administered on 05/07/17 21:05; Admin Dose 15 ML; Start 04/22/17 at 21:00 Vitamin A/Vitamin D (Vitamin A & D Oint) 1 applic TID TOP Last administered on 05/07/17 21:05; Admin Dose 1 APPLIC; Start 04/22/17 at 21:00 Vitamin A/Vitamin D (Vitamin A & D Oint) 1 applic TID PRN TOP DRYNESS Last administered on 04/22/17 15:29; Admin Dose 1 APPLIC; Start 04/22/17 at 15:00 Acetaminophen/ Hydrocodone Bitart ([place] (5/325)) 1 tab Q6H GTB Last administered on 05/08/17 03:42; Admin Dose 1 TAB; Start 04/22/17 at 21:30 Spironolactone (Aldactone) 25 mg DAILY NGT Last administered on 05/07/17 09:47 ; Admin Dose 25 MG; Start 04/25/17 at 19:00; Status Future hold Diltiazem HCl 5 mg 5 mg Q1H PRN IV HEART RATE GREATER THAN 120 Last administered on 04/29/17 06:17; Admin Dose 5 MG; Start 04/29/17 at 05:00 Meropenem/Sodium Chloride (Merrem 500mg/50 ml(Pmx)) 50 ml @ 100 mls/hr Q12 IVPB Last administered on 05/07/17 21:04; Admin Dose 100 MLS/HR; Start at 12:00 Metronidazole 500 mg 500 mg Q8 GTB Last administered on 05/08/17 06:03; Admin Dose 500 MG; Start 04/30/17 at 22:00 Sodium Chloride 1,000 ml @ 0 mls/hr Q0M IV Last administered on 05/01/17 03: 00; Admin Dose 1,000 MLS/HR; Start 05/01/17 at 03:00 Sodium Chloride (NS) 1,000 ml @ 0 mls/hr Q0M IV Last administered on 04:00; Admin Dose 1,000 MLS/HR; Start 05/01/17 at 03:30 Pantoprazole 40 mg 40 mg BID@06,18 IV Last administered on 05/08/17 06:03; Admin Dose 40 MG; Start 05/02/17 at 15:00 Diltiazem HCl (Cardizem-D5W 125 Mg/125 ml Drip) 125 ml @ 5 mls/hr TITRATE IV Last administered on 05/02/17 19:11; Admin Dose 5 MLS/HR; Start 05/02/17 at 19: 00 Furosemide (Lasix) 80 mg Q12 IV Last administered on 05/07/17 21:04; Admin Dose 80 MG; Start 05/03/17 at 09:00 Hydrocortisone (Solu-Cortef) 100 mg BID IV Last administered on 05/07/17 21:04 ; Admin Dose 100 MG; Start 05/04/17 at 21:00 Valacyclovir HCl (Valtrex) 1,000 mg DAILY GTB Last administered on 05/07/17 08 :43; Admin Dose 1,000 MG; Start 05/06/17 at 09:00 Metoprolol Tartrate (Lopressor) 25 mg QID GTB Last administered on 05/07/17 21 :05; Admin Dose 25 MG; Start 05/07/17 at 09:00 FRANCISCO BLACKWOOD MD May 08, 2017 07:36
[2017-05-08] MEDS ORDERED: ALBUMIN HUMAN 25% 100 ML ONE (07:41)
[2017-05-08] MEDS ORDERED: ALBUMIN HUMAN 25% 100 ML IV ONE (08:00)
--- NOTE | 2017-05-08 08:02 | PN ---
Date/Time of Note Date/Time of Note DATE: 05/08/17 TIME: 07:52 Assessment/Plan Lines/Catheters IV Catheter Type (from [facility]): Amrit Latif in Place (from [facility]): Yes Assessment/Plan Chief Complaint/Hosp Course 1. Cholelithiasis ? cholecystitis: Ct abd: sludge and small stones in the gallbladder. No gallbladder wall thickening is noted with some pericholecystic fluid is present. Patient off pressors; GT/OGT no output; HIDA positive; IR drain placement cancelled by radiologist since US without evidence of infection. Therefore, Dr. Guadalupe believes the HIDA is false positive. Tolerating tube feeds; no abdominal pain/discomfort; LFT's increased, bili nl (s/p code with blood loss); +bowel function -No surgical intervention required at this time 2. Pneumonia: Recurrent; no fevers; reintubated; less secretion sputum cx: PSEUDOMONAS AERUGINOSA, K PNEUMO ESBL, NASRIN GLABRATA; appears comfortable -pulmonary toilet -abx per ID 3. Vent dependent respiratory failure: 2/2 aspiration PNA+ CHF;reintubated and extubated, coded 04/21 and 05/01; currently reintubated -as above 4. Septic shock: resolved -on abx -supportive 5. Uncontrolled Afib: s/p amiodarone drip, on oral amiodarone; episodes of Afib Now SR -medical optimization 6. Elevated troponin:NSTEMI; septic shock/demand ischemia -trend 7. Leukocytosis with lactic acidosis: 2/2 pneumonia vs. steroids vs.fungemia vs other (urine, repeat blood cultures negative);wbc improved -abx, antifungals -judicious fluid management -supportive measures 8. KEYONNA: likely 2/2 septic shock; s/p code; HD again today; good urine output; cr improving -judicious fluid management -avoid nephrotoxic agents 9. CHF: BNP elevated -judicious fluid management -medical optimization 10. Adrenal Insufficiency -solucortef 11. Hypomagnesemia: normalized 12. Hypothyroidism; tsh elevated -on synthroid 13. Macrocytic anemia: chronic vs. dilutional vs. acute bleed vs. b12/folate deficiency;h/h stable -monitor -Transfuse as needed 14. Transaminitis: likely 2/2 septic shock vs. cholecystitis;normalized -trend, monitor 15. Diarrhea: 2/2 abx vs. enteritis: resolved; tolerating tf -? probiotics 16. Thrombocytosis: 2/2 inflammatory vs. drug induced vs. other -monitor -bleeding precautions -supportive 17. Encephalopathy: 2/2 toxic metabolic vs. anoxic injury; CT: No acute intracranial hemorrhage or mass effect. Mild chronic microvascular disease and intracranial atherosclerosis; EEG shows no seizure activity -supportive 18. Bilateral upper extremity edema: likely 2/2 decreased movement vs. thrombosis; initial doppler negative, repeat doppler left arm (+) Thrombus -elevate extremities -supportive 19. Hypoalbuminemia: 2/2 malnutrition +/- inflammation; decreased; tolerating tf ; -nutrition optimization -as above 20 Hypernatremia: normalized -judicious fluid management 21. Hypocalcemia with hypoalbuminemia -optimize nutrition 22. Fungemia -antifungals 23. Hyperkalemia, now with hypokalemia: improving -optimize lytes 24. Oral lesions Patient seen and examined in collaboration with Dr. Justus Antonio Problems: Subjective 24 Hr Interval Summary Somnolent, getting dialysis today. appears comfortable on vent. Nonverbal indicators of pain not present. No c/o dizziness, sz, cp, palpitations, sob, cough, n/v/d, dysuria, +bowel function. Exam/Review of Systems Vital Signs Vitals Vital Signs Date Time Temp Pulse Resp B/P Pulse Ox O2 Delivery O2 Flow Rate FiO2 05/08/17 06:00 76 24 134/70 100 Mechanical Ventilator 05/08/17 05:20 30 05/08/17 04:00 98.1 Intake and Output 05/07/17 05/07/17 05/08/17 15:00 23:00 07:00 Intake Total 1450 ml 750 ml 750 ml Output Total 6875 ml 405 ml 425 ml Balance -5425 ml 345 ml 325 ml Exam Free Text/Dictation Constitutional: somnolent, appears comfortable Head: atraumatic, normocephalic Eyes: PERRL, nl lids, nl sclera ENMT: No mucosa pink and moist (pink and moist with healing perioral lesions) Neck: non-tender, supple, tracheostomy (min dried blood) Respiratory: diminished, comfortable on vent Cardiovascular: nl pulses, regular rate and rhythm, NSR, Gastrointestinal: min distended, GT tubes site no erythema, no drainage, non tenderness, bowel sounds x 4 quads Genitourinary - Female: nl external genitalia Musculoskeletal: nl extremities to inspection Extremities: normal pulses, bilateral upper/lower extremity edema (min improvement) Neurological: responsive Skin: nl turgor, No rash or lesions Lymph: nl lymph nodes Results Result Diagram: 05/08/1739905/08/17399 ADDISON FREGOSO NP May 08, 2017 08:01
--- NOTE | 2017-05-08 08:16 | PN ---
Date/Time of Note Date/Time of Note DATE: 05/08/17 TIME: 08:14 Assessment/Plan VTE Prophylaxis VTE Prophylaxis Intervention: other Lines/Catheters IV Catheter Type (from Nrs): Amrit Urinary Cath still in place: Yes Reason Cath still needed: other (indicate) Assessment/Plan Chief Complaint/Hosp Course 1. Status post code arrest -Etiology secondary to sepsis, hypoxemic failure -Patient was coded 30 minutes with spontaneous return of circulation 2. Ventilator dependent respiratory failure status post trach -ABG chest x-ray reviewed -We will follow-up with pulmonary, 2. nonoliguric Kenrick. With previously normal baseline creatinine. Etiology is likely secondary to septic KENRICK, ATN -Patient was initiated on dialysis due to significant volume overload and worsening renal failure Patient tolerated dialysis well Plan for daily dialysis for side clearance and volume removal Urinary output has been improving Monitor for signs of recovery - 3. Hypokalemia We will replete with potassium chloride resume Aldactone 3. Sepsis status post shock Etiology secondary to aspiration pneumonia, fungemia Patient is on broad-spectrum antibiotics, antifungals, - Patient's blood cultures have been reviewed. - Continue current treatment plan Follow-up with infectious disease 4. Volume overload. Etiology likely secondary to sepsis capillary leak, diastolic heart failure. -Continue dialysis and volume removal 6. History of adrenal insufficiency. -Patient currently on stress steroids, -Appreciate endocrinology evaluation 7. Acute encephalopathy etiologies toxic metabolic, possible anoxic injury. Mental status is improving, patient following commands CT scan showed no acute finding Appreciate Dr. Ellis evaluation -Continue to monitor closely 8. Hypernatremia Resolved 9. Hypothyroidism continue Synthroid 10. Anemia with GI bleed Status post EGD with cauterization of fundal bleed H&H levels have been slowly trending down Continue PPI Appreciate GIs help with management 11. Mineral bone disorder will monitor calcium phosphorus levels 12. h/o tongue cancer with resection 13. History of diastolic heart failure/coronary disease -Continue medical management 14. Leukocytosis. -Etiology is likely secondary sepsis, steroids. -Monitor - Follow-up with infectious disease. 15. Hypomagnesemia. Continue to monitor and replete as needed 16. Left upper extremity DVT. -Hold aspirin heparin in setting of bleed 17. Dysphagia status post PEG Continue tube feeding 18. Arrhythmia Status post amiodarone drip Follow-up with cardio 19. ?cholecystitis -Patient's HIDA scan was positive - cholecystostomy drain was not placed due to insufficient fluid. -No plan for drain placement at this time. I discussed case with general surgery Appreciate surgery's evaluation. 20. 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 Ellis's evaluation Continue supportive care Disposition. Isbell evaluation has been placed. I spent greater than 40 minutes of critical care time with this pt Problems: Subjective 24 Hr Interval Summary Free Text/Dictation Patient seen and examined Remains critical but stable Undergoing hemodialysis tolerating well Urinary output has been improving Exam/Review of Systems Vital Signs Vitals Vital Signs Date Time Temp Pulse Resp B/P Pulse Ox O2 Delivery O2 Flow Rate FiO2 05/08/17 06:00 76 24 134/70 100 Mechanical Ventilator 05/08/17 05:20 30 05/08/17 04:00 98.1 Intake and Output 05/07/17 05/07/17 05/08/17 15:00 23:00 07:00 Intake Total 1450 ml 750 ml 750 ml Output Total 6875 ml 405 ml 425 ml Balance -5425 ml 345 ml 325 ml Exam HEENT: Head is normocephalic, NECK: Supple. HEART: Irregular LUNGS: Show diminished breath sounds at base. ABDOMEN: Soft, nontender to palpation without rebound or guarding. EXTREMITIES: Negative for clubbing, cyanosis. Positive anasarca DERMATOLOGIC: No rashes. MUSCULOSKELETAL: No joint effusions, NEUROLOGIC: No change in exam. Results Result Diagram: 05/08/17 0400 05/08/17 0400 Results 24 hrs Laboratory Tests Test 05/07/17 12:26 05/07/17 18:06 05/07/17 23:47 05/08/17 04:00 Bedside Glucose 142 129 144 White Blood Count 15.6 #H Red Blood Count 2.78 L Hemoglobin 8.4 L Hematocrit 25.1 L Mean Corpuscular Volume 90.3 Mean Corpuscular Hemoglobin 30.2 Mean Corpuscular Hemoglobin Concent 33.5 Red Cell Distribution Width 19.6 H Platelet Count 99 L Mean Platelet Volume 13.9 H Neutrophils % 87.5 H Lymphocytes % 3.3 L Monocytes % 4.8 Eosinophils % 0.1 Basophils % 0.1 Nucleated Red Blood Cells % 0.0 Neutrophils # 13.6 H Lymphocytes # 0.5 L Monocytes # 0.8 Eosinophils # 0.0 Basophils # 0.0 Nucleated Red Blood Cells # 0.0 Sodium Level 139 Potassium Level 3.4 L Chloride Level 99 Carbon Dioxide Level 29 Anion Gap 14 Blood Urea Nitrogen 54 H Creatinine 1.63 H Glucose Level 118 Calcium Level 8.3 L Phosphorus Level 2.7 Magnesium Level 2.0 Total Bilirubin 0.4 Direct Bilirubin 0.00 Indirect Bilirubin 0.4 Aspartate Amino Transf (AST/SGOT) 31 Alanine Aminotransferase (ALT/SGPT) 50 Alkaline Phosphatase 120 Total Protein 4.5 L Albumin 2.7 L Globulin 1.80 Albumin/Globulin Ratio 1.50 Test 05/08/17 06:05 Bedside Glucose 142 Medications Medications Current Medications Aspirin (Aspirin) 325 mg DAILY NGT Last administered on 04/30/17 08:43; Admin Dose 325 MG; Start 04/12/17 at 09:00; Status Future Hold Metoprolol Tartrate (Lopressor) 5 mg Q4H PRN IV HR>110 Hold SBP<110 Last administered on 04/20/17 17:36; Admin Dose 5 MG; Start 04/11/17 at 13:30 Miscellaneous Information 1 ea NOTE XX ; Start 04/11/17 at 16:30 Glucose (Glutose) 15 gm Q15M PRN PO DECREASED GLUCOSE Last administered on 05/07 03:27; Admin Dose 15 GM; Start 04/11/17 at 16:30 Glucose (Glutose) 22.5 gm Q15M PRN PO DECREASED GLUCOSE; Start 04/11/17 at 16: 30 Dextrose (D50w Syringe) 25 ml Q15M PRN IV DECREASED GLUCOSE Last administered on 04/12/17 23:56; Admin Dose 25 ML; Start 04/11/17 at 16:30 Dextrose (D50w Syringe) 50 ml Q15M PRN IV DECREASED GLUCOSE; Start 04/11/17 at 16:30 Glucagon (Glucagen) 1 mg Q15M PRN IM DECREASED GLUCOSE; Start 04/11/17 at 16:30 Glucose (Glutose) 15 gm Q15M PRN BUCCAL DECREASED GLUCOSE; Start 04/11/17 at 16 :30 Metoclopramide HCl (Reglan) 10 mg Q6 IV Last administered on 05/08/17 06:03; Admin Dose 10 MG; Start 04/12/17 at 18:00 Insulin Aspart (Novolog Insulin Pen) NOVOLOG *MILD* ALGORI... Q6H SC Last administered on 05/08/17 06:06; Admin Dose 2 UNIT; Start 04/15/17 at 00:00 IV Flush (NS 10 ml) 10 ml PRN PRN IV FLUSH LINE; Start 04/15/17 at 13:00 Amiodarone HCl (Cordarone) 200 mg BID GTB Last administered on 05/07/17 11:30 ; Admin Dose 200 MG; Start 04/16/17 at 13:00 Heparin Sodium (Porcine) (Heparin (5000 Units/0.5 ml)) 5,000 unit BID SC Last administered on 04/30/17 21:03; Admin Dose 5,000 UNIT; Start 04/18/17 at 16:22; Status Future Hold Citalopram Hydrobromide (Celexa) 20 mg DAILY NGT Last administered on 08:43; Admin Dose 20 MG; Start 04/19/17 at 09:00 Hydralazine HCl 20 mg 20 mg Q6H PRN IV sbp ABOVE 160 Last administered on 12:23; Admin Dose 20 MG; Start 04/18/17 at 18:30 Caspofungin/ Sodium Chloride (Cancidas/NS) 250 ml @ 250 mls/hr Q24H IV Last administered on 05/07/17 09:46; Admin Dose 250 MLS/HR; Start 04/21/17 at 10:00 Chlorhexidine Gluconate (Peridex) 15 ml BID MT Last administered on 05/07/17 21:05; Admin Dose 15 ML; Start 04/22/17 at 21:00 Vitamin A/Vitamin D (Vitamin A & D Oint) 1 applic TID TOP Last administered on 05/07/17 21:05; Admin Dose 1 APPLIC; Start 04/22/17 at 21:00 Vitamin A/Vitamin D (Vitamin A & D Oint) 1 applic TID PRN TOP DRYNESS Last administered on 04/22/17 15:29; Admin Dose 1 APPLIC; Start 04/22/17 at 15:00 Acetaminophen/ Hydrocodone Bitart ([place] (5/325)) 1 tab Q6H GTB Last administered on 05/08/17 03:42; Admin Dose 1 TAB; Start 04/22/17 at 21:30 Spironolactone (Aldactone) 25 mg DAILY NGT Last administered on 05/07/17 09:47 ; Admin Dose 25 MG; Start 04/25/17 at 19:00; Status Future hold Diltiazem HCl 5 mg 5 mg Q1H PRN IV HEART RATE GREATER THAN 120 Last administered on 04/29/17 06:17; Admin Dose 5 MG; Start 04/29/17 at 05:00 Meropenem/Sodium Chloride (Merrem 500mg/50 ml(Pmx)) 50 ml @ 100 mls/hr Q12 IVPB Last administered on 05/07/17 21:04; Admin Dose 100 MLS/HR; Start at 12:00 Metronidazole 500 mg 500 mg Q8 GTB Last administered on 05/08/17 06:03; Admin Dose 500 MG; Start 04/30/17 at 22:00 Sodium Chloride 1,000 ml @ 0 mls/hr Q0M IV Last administered on 05/01/17 03: 00; Admin Dose 1,000 MLS/HR; Start 05/01/17 at 03:00 Sodium Chloride (NS) 1,000 ml @ 0 mls/hr Q0M IV Last administered on 04:00; Admin Dose 1,000 MLS/HR; Start 05/01/17 at 03:30 Pantoprazole 40 mg 40 mg BID@06,18 IV Last administered on 05/08/17 06:03; Admin Dose 40 MG; Start 05/02/17 at 15:00 Diltiazem HCl (Cardizem-D5W 125 Mg/125 ml Drip) 125 ml @ 5 mls/hr TITRATE IV Last administered on 05/02/17 19:11; Admin Dose 5 MLS/HR; Start 05/02/17 at 19: 00 Furosemide (Lasix) 80 mg Q12 IV Last administered on 05/07/17 21:04; Admin Dose 80 MG; Start 05/03/17 at 09:00 Hydrocortisone (Solu-Cortef) 100 mg BID IV Last administered on 05/07/17 21:04 ; Admin Dose 100 MG; Start 05/04/17 at 21:00 Valacyclovir HCl (Valtrex) 1,000 mg DAILY GTB Last administered on 05/07/17 08 :43; Admin Dose 1,000 MG; Start 05/06/17 at 09:00 Metoprolol Tartrate 25 mg 25 mg QID GTB Last administered on 05/07/17 21:05; Admin Dose 25 MG; Start 05/07/17 at 09:00 Albumin Human (Albumin Human 25%) 100 ml @ 100 mls/hr ONCE ONCE IV Last administered on 05/08/17 07:48; Admin Dose 100 MLS/HR; Start 05/08/17 at 08:00 ; Stop 05/08/17 at 08:59 Potassium Chloride (Potassium Chloride Pwd/Soln) 20 meq ONCE ONCE GTB ; Start 05/08/17 at 08:30; Stop 05/08/17 at 08:31; Status NINA SILVA DO May 08, 2017 08:16
[2017-05-08] MEDS ORDERED: POTASSIUM CHLORIDE 20 MEQ POWDER FOR ORAL SOLN GTB ONE (08:30)
--- NOTE | 2017-05-08 08:48 | CONS ---
Date/Time of Note Date/Time of Note DATE: 05/08/17 TIME: 08:43 Consultation Date/Type/Reason Admit Date/Time Apr 11, 2017 at 11:28 Initial Consult Date 05/01/17 Type of Consultation: Palliative care Reason for Consultation ICU visit for 05/08 Referring Provider: NINA VALDERRAMA DO 24 HR Interval Summary Free Text/Dictation I visited patient and spoke with her once again. He still maintains hope that she is going to make a significant recovery. She still is receiving hemodialysis but is extubated but remains encephalopathic. I do not think he will change his mind on the level of care she is receiving at this time, I have not pushed him in that direction either. Other issues explored his understanding hopes an acceptable quality of life for his weight communication preference since have been very acceptable with his primary care physician Dr. Valderrama. Estimated prognosis is extremely poor palliative performance scale is 40% at best peer. there are no pain or symptom issues that have not been at CODE STATUS remains full code per patient's . Exam/Review of Systems Vital Signs Vitals Vital Signs Date Time Temp Pulse Resp B/P Pulse Ox O2 Delivery O2 Flow Rate FiO2 05/08/17 06:00 76 24 134/70 100 Mechanical Ventilator 05/08/17 05:20 30 05/08/17 04:00 98.1 Intake and Output 05/07/17 05/07/17 05/08/17 15:00 23:00 07:00 Intake Total 1450 ml 750 ml 750 ml Output Total 6875 ml 405 ml 425 ml Balance -5425 ml 345 ml 325 ml Results Result Diagram: 05/08/17 0400 05/08/17 0400 Results 24 hrs Laboratory Tests Test 05/07/17 12:26 05/07/17 18:06 05/07/17 23:47 05/08/17 04:00 Bedside Glucose 142 129 144 White Blood Count 15.6 #H Red Blood Count 2.78 L Hemoglobin 8.4 L Hematocrit 25.1 L Mean Corpuscular Volume 90.3 Mean Corpuscular Hemoglobin 30.2 Mean Corpuscular Hemoglobin Concent 33.5 Red Cell Distribution Width 19.6 H Platelet Count 99 L Mean Platelet Volume 13.9 H Neutrophils % 87.5 H Lymphocytes % 3.3 L Monocytes % 4.8 Eosinophils % 0.1 Basophils % 0.1 Nucleated Red Blood Cells % 0.0 Neutrophils # 13.6 H Lymphocytes # 0.5 L Monocytes # 0.8 Eosinophils # 0.0 Basophils # 0.0 Nucleated Red Blood Cells # 0.0 Sodium Level 139 Potassium Level 3.4 L Chloride Level 99 Carbon Dioxide Level 29 Anion Gap 14 Blood Urea Nitrogen 54 H Creatinine 1.63 H Glucose Level 118 Calcium Level 8.3 L Phosphorus Level 2.7 Magnesium Level 2.0 Total Bilirubin 0.4 Direct Bilirubin 0.00 Indirect Bilirubin 0.4 Aspartate Amino Transf (AST/SGOT) 31 Alanine Aminotransferase (ALT/SGPT) 50 Alkaline Phosphatase 120 Total Protein 4.5 L Albumin 2.7 L Globulin 1.80 Albumin/Globulin Ratio 1.50 Test 05/08/17 06:05 Bedside Glucose 142 Medications Medications Current Medications Aspirin (Aspirin) 325 mg DAILY NGT Last administered on 04/30/17 08:43; Admin Dose 325 MG; Start 04/12/17 at 09:00; Status Future Hold Metoprolol Tartrate (Lopressor) 5 mg Q4H PRN IV HR>110 Hold SBP<110 Last administered on 04/20/17 17:36; Admin Dose 5 MG; Start 04/11/17 at 13:30 Miscellaneous Information 1 ea NOTE XX ; Start 04/11/17 at 16:30 Glucose (Glutose) 15 gm Q15M PRN PO DECREASED GLUCOSE Last administered on 05/07 03:27; Admin Dose 15 GM; Start 04/11/17 at 16:30 Glucose (Glutose) 22.5 gm Q15M PRN PO DECREASED GLUCOSE; Start 04/11/17 at 16: 30 Dextrose (D50w Syringe) 25 ml Q15M PRN IV DECREASED GLUCOSE Last administered on 04/12/17 23:56; Admin Dose 25 ML; Start 04/11/17 at 16:30 Dextrose (D50w Syringe) 50 ml Q15M PRN IV DECREASED GLUCOSE; Start 04/11/17 at 16:30 Glucagon (Glucagen) 1 mg Q15M PRN IM DECREASED GLUCOSE; Start 04/11/17 at 16:30 Glucose (Glutose) 15 gm Q15M PRN BUCCAL DECREASED GLUCOSE; Start 04/11/17 at 16 :30 Metoclopramide HCl (Reglan) 10 mg Q6 IV Last administered on 05/08/17 06:03; Admin Dose 10 MG; Start 04/12/17 at 18:00 Insulin Aspart (Novolog Insulin Pen) NOVOLOG *MILD* ALGORI... Q6H SC Last administered on 05/08/17 06:06; Admin Dose 2 UNIT; Start 04/15/17 at 00:00 IV Flush (NS 10 ml) 10 ml PRN PRN IV FLUSH LINE; Start 04/15/17 at 13:00 Amiodarone HCl (Cordarone) 200 mg BID GTB Last administered on 05/07/17 11:30 ; Admin Dose 200 MG; Start 04/16/17 at 13:00 Heparin Sodium (Porcine) (Heparin (5000 Units/0.5 ml)) 5,000 unit BID SC Last administered on 04/30/17 21:03; Admin Dose 5,000 UNIT; Start 04/18/17 at 16:22; Status Future Hold Citalopram Hydrobromide (Celexa) 20 mg DAILY NGT Last administered on 08:43; Admin Dose 20 MG; Start 04/19/17 at 09:00 Hydralazine HCl 20 mg 20 mg Q6H PRN IV sbp ABOVE 160 Last administered on 12:23; Admin Dose 20 MG; Start 04/18/17 at 18:30 Caspofungin/ Sodium Chloride (Cancidas/NS) 250 ml @ 250 mls/hr Q24H IV Last administered on 05/07/17 09:46; Admin Dose 250 MLS/HR; Start 04/21/17 at 10:00 Chlorhexidine Gluconate (Peridex) 15 ml BID MT Last administered on 05/07/17 21:05; Admin Dose 15 ML; Start 04/22/17 at 21:00 Vitamin A/Vitamin D (Vitamin A & D Oint) 1 applic TID TOP Last administered on 05/07/17 21:05; Admin Dose 1 APPLIC; Start 04/22/17 at 21:00 Vitamin A/Vitamin D (Vitamin A & D Oint) 1 applic TID PRN TOP DRYNESS Last administered on 04/22/17 15:29; Admin Dose 1 APPLIC; Start 04/22/17 at 15:00 Acetaminophen/ Hydrocodone Bitart ([place] (5/325)) 1 tab Q6H GTB Last administered on 05/08/17 03:42; Admin Dose 1 TAB; Start 04/22/17 at 21:30 Spironolactone (Aldactone) 25 mg DAILY NGT Last administered on 05/07/17 09:47 ; Admin Dose 25 MG; Start 04/25/17 at 19:00; Status Future hold Diltiazem HCl 5 mg 5 mg Q1H PRN IV HEART RATE GREATER THAN 120 Last administered on 04/29/17 06:17; Admin Dose 5 MG; Start 04/29/17 at 05:00 Meropenem/Sodium Chloride (Merrem 500mg/50 ml(Pmx)) 50 ml @ 100 mls/hr Q12 IVPB Last administered on 05/07/17 21:04; Admin Dose 100 MLS/HR; Start at 12:00 Metronidazole 500 mg 500 mg Q8 GTB Last administered on 05/08/17 06:03; Admin Dose 500 MG; Start 04/30/17 at 22:00 Sodium Chloride 1,000 ml @ 0 mls/hr Q0M IV Last administered on 05/01/17 03: 00; Admin Dose 1,000 MLS/HR; Start 05/01/17 at 03:00 Sodium Chloride (NS) 1,000 ml @ 0 mls/hr Q0M IV Last administered on 04:00; Admin Dose 1,000 MLS/HR; Start 05/01/17 at 03:30 Pantoprazole 40 mg 40 mg BID@06,18 IV Last administered on 05/08/17 06:03; Admin Dose 40 MG; Start 05/02/17 at 15:00 Diltiazem HCl (Cardizem-D5W 125 Mg/125 ml Drip) 125 ml @ 5 mls/hr TITRATE IV Last administered on 05/02/17 19:11; Admin Dose 5 MLS/HR; Start 05/02/17 at 19: 00 Hydrocortisone (Solu-Cortef) 100 mg BID IV Last administered on 05/07/17 21:04 ; Admin Dose 100 MG; Start 05/04/17 at 21:00 Valacyclovir HCl (Valtrex) 1,000 mg DAILY GTB Last administered on 05/07/17 08 :43; Admin Dose 1,000 MG; Start 05/06/17 at 09:00 Metoprolol Tartrate 25 mg 25 mg QID GTB Last administered on 05/07/17 21:05; Admin Dose 25 MG; Start 05/07/17 at 09:00 Albumin Human (Albumin Human 25%) 100 ml @ 100 mls/hr ONCE ONCE IV Last administered on 05/08/17 07:48; Admin Dose 100 MLS/HR; Start 05/08/17 at 08:00 ; Stop 05/08/17 at 08:59 Furosemide (Lasix) 40 mg Q12 IV ; Start 05/08/17 at 09:00 YVONNE ADAMS May 08, 2017 08:48
[2017-05-08] MEDS: AMIODARONE 200 MG TAB GTB SCH ×2 (09:38→20:40)
[2017-05-08] MEDS: VALACYCLOVIR 500 MG TAB GTB SCH (09:39)
[2017-05-08] MEDS: METOPROLOL 25 MG TAB GTB SCH ×4 (09:39→20:41)
[2017-05-08] MEDS: MEROPENEM 500MG/50 ML (PMX) 50 ML IVPB SCH (09:40)
[2017-05-08] MEDS: FUROSEMIDE 40 MG INJ IV SCH ×2 (09:40→20:41)
[2017-05-08] MEDS: CHLORHEXIDINE GLUCONATE 15 ML UD CUP MT SCH ×2 (09:40→20:41)
[2017-05-08] MEDS: HYDROCORTISONE 100 MG INJ IV SCH ×2 (09:40→20:41)
[2017-05-08] MEDS: CASPOFUNGIN 50 MG in NS 250 ML IV SCH (09:41)
[2017-05-08] MEDS: VITAMIN A & D 5 GM OINT PACKET TOP SCH ×3 (09:42→20:41)
[2017-05-08] MEDS: CITALOPRAM 20 MG TAB NGT SCH (09:42)
[2017-05-08] MEDS: SPIRONOLACTONE 25 MG TAB NGT SCH (09:42)
--- NOTE | 2017-05-08 10:14 | CONS ---
Date/Time of Note Date/Time of Note DATE: 05/08/17 TIME: 10:13 Consult Date/Type/Reason Admit Date/Time Apr 11, 2017 at 11:28 Initial Consult Date 04/12/17 Type of Consultation: Pulmonary Ordering Provider: NINA MACIEL DO Subjective Patient remains stable no new events. Objective Vital Signs Date Time Temp Pulse Resp B/P Pulse Ox O2 Delivery O2 Flow Rate FiO2 05/08/17 09:15 81 05/08/17 08:45 19 163/91 100 05/08/17 08:00 98.1 Mechanical Ventilator 05/08/17 05:20 30 Intake and Output 05/07/17 05/07/17 05/08/17 15:00 23:00 07:00 Intake Total 1450 ml 750 ml 1250 ml Output Total 6875 ml 405 ml 3925 ml Balance -5425 ml 345 ml -2675 ml Exam GENERAL: Elderly lady on mechanical ventilation via tracheostomy comfortable no distress VITAL SIGNS: see below. HEENT: Pupils equal, round, and reactive to light. Tracheostomy site clean and intact. CARDIAC: S1, S2, 1/6 systolic ejection murmur CHEST: Diminished air entry bilaterally. ABDOMEN: Mildly distended. Bowel sounds present no guarding or rebound EXTREMITIES: No cyanosis, clubbing edema +2 significant anasarca upper extremities NEUROLOGIC: Generalized weakness Results/Medications Result Diagram: 05/08/17 0400 05/08/17 0400 Results 24 hrs Laboratory Tests Test 05/07/17 12:26 05/07/17 18:06 05/07/17 23:47 05/08/17 04:00 Bedside Glucose 142 129 144 White Blood Count 15.6 #H Red Blood Count 2.78 L Hemoglobin 8.4 L Hematocrit 25.1 L Mean Corpuscular Volume 90.3 Mean Corpuscular Hemoglobin 30.2 Mean Corpuscular Hemoglobin Concent 33.5 Red Cell Distribution Width 19.6 H Platelet Count 99 L Mean Platelet Volume 13.9 H Neutrophils % 87.5 H Lymphocytes % 3.3 L Monocytes % 4.8 Eosinophils % 0.1 Basophils % 0.1 Nucleated Red Blood Cells % 0.0 Neutrophils # 13.6 H Lymphocytes # 0.5 L Monocytes # 0.8 Eosinophils # 0.0 Basophils # 0.0 Nucleated Red Blood Cells # 0.0 Sodium Level 139 Potassium Level 3.4 L Chloride Level 99 Carbon Dioxide Level 29 Anion Gap 14 Blood Urea Nitrogen 54 H Creatinine 1.63 H Glucose Level 118 Calcium Level 8.3 L Phosphorus Level 2.7 Magnesium Level 2.0 Total Bilirubin 0.4 Direct Bilirubin 0.00 Indirect Bilirubin 0.4 Aspartate Amino Transf (AST/SGOT) 31 Alanine Aminotransferase (ALT/SGPT) 50 Alkaline Phosphatase 120 Total Protein 4.5 L Albumin 2.7 L Globulin 1.80 Albumin/Globulin Ratio 1.50 Test 05/08/17 06:05 Bedside Glucose 142 Medications Current Medications Aspirin (Aspirin) 325 mg DAILY NGT Last administered on 04/30/17 08:43; Admin Dose 325 MG; Start 04/12/17 at 09:00; Status Future Hold Metoprolol Tartrate (Lopressor) 5 mg Q4H PRN IV HR>110 Hold SBP<110 Last administered on 04/20/17 17:36; Admin Dose 5 MG; Start 04/11/17 at 13:30 Miscellaneous Information 1 ea NOTE XX ; Start 04/11/17 at 16:30 Glucose (Glutose) 15 gm Q15M PRN PO DECREASED GLUCOSE Last administered on 05/07 03:27; Admin Dose 15 GM; Start 04/11/17 at 16:30 Glucose (Glutose) 22.5 gm Q15M PRN PO DECREASED GLUCOSE; Start 04/11/17 at 16: 30 Dextrose (D50w Syringe) 25 ml Q15M PRN IV DECREASED GLUCOSE Last administered on 04/12/17 23:56; Admin Dose 25 ML; Start 04/11/17 at 16:30 Dextrose (D50w Syringe) 50 ml Q15M PRN IV DECREASED GLUCOSE; Start 04/11/17 at 16:30 Glucagon (Glucagen) 1 mg Q15M PRN IM DECREASED GLUCOSE; Start 04/11/17 at 16:30 Glucose (Glutose) 15 gm Q15M PRN BUCCAL DECREASED GLUCOSE; Start 04/11/17 at 16 :30 Metoclopramide HCl (Reglan) 10 mg Q6 IV Last administered on 05/08/17 06:03; Admin Dose 10 MG; Start 04/12/17 at 18:00 Insulin Aspart (Novolog Insulin Pen) NOVOLOG *MILD* ALGORI... Q6H SC Last administered on 7/27/17at 06:06; Admin Dose 2 UNIT; Start 04/15/17 at 00:00 IV Flush (NS 10 ml) 10 ml PRN PRN IV FLUSH LINE; Start 04/15/17 at 13:00 Amiodarone HCl (Cordarone) 200 mg BID GTB Last administered on 05/08/17 09:38 ; Admin Dose 200 MG; Start 04/16/17 at 13:00 Heparin Sodium (Porcine) (Heparin (5000 Units/0.5 ml)) 5,000 unit BID SC Last administered on 04/30/17 21:03; Admin Dose 5,000 UNIT; Start 04/18/17 at 16:22; Status Future Hold Citalopram Hydrobromide (Celexa) 20 mg DAILY NGT Last administered on 09:42; Admin Dose 20 MG; Start 04/19/17 at 09:00 Hydralazine HCl 20 mg 20 mg Q6H PRN IV sbp ABOVE 160 Last administered on 12:23; Admin Dose 20 MG; Start 04/18/17 at 18:30 Caspofungin/ Sodium Chloride (Cancidas/NS) 250 ml @ 250 mls/hr Q24H IV Last administered on 05/08/17 09:41; Admin Dose 250 MLS/HR; Start 04/21/17 at 10:00 Chlorhexidine Gluconate (Peridex) 15 ml BID MT Last administered on 05/08/17 09:40; Admin Dose 15 ML; Start 04/22/17 at 21:00 Vitamin A/Vitamin D (Vitamin A & D Oint) 1 applic TID TOP Last administered on 05/08/17 09:42; Admin Dose 1 APPLIC; Start 04/22/17 at 21:00 Vitamin A/Vitamin D (Vitamin A & D Oint) 1 applic TID PRN TOP DRYNESS Last administered on 04/22/17 15:29; Admin Dose 1 APPLIC; Start 04/22/17 at 15:00 Acetaminophen/ Hydrocodone Bitart ([place] (5/325)) 1 tab Q6H GTB Last administered on 05/08/17 09:41; Admin Dose 1 TAB; Start 04/22/17 at 21:30 Spironolactone (Aldactone) 25 mg DAILY NGT Last administered on 05/08/17 09:42 ; Admin Dose 25 MG; Start 04/25/17 at 19:00; Status Future hold Diltiazem HCl 5 mg 5 mg Q1H PRN IV HEART RATE GREATER THAN 120 Last administered on 04/29/17 06:17; Admin Dose 5 MG; Start 04/29/17 at 05:00 Meropenem/Sodium Chloride (Merrem 500mg/50 ml(Pmx)) 50 ml @ 100 mls/hr Q12 IVPB Last administered on 05/08/17 09:40; Admin Dose 100 MLS/HR; Start at 12:00 Metronidazole 500 mg 500 mg Q8 GTB Last administered on 05/08/17 06:03; Admin Dose 500 MG; Start 04/30/17 at 22:00 Sodium Chloride 1,000 ml @ 0 mls/hr Q0M IV Last administered on 05/01/17 03: 00; Admin Dose 1,000 MLS/HR; Start 05/01/17 at 03:00 Sodium Chloride (NS) 1,000 ml @ 0 mls/hr Q0M IV Last administered on 04:00; Admin Dose 1,000 MLS/HR; Start 05/01/17 at 03:30 Pantoprazole 40 mg 40 mg BID@06,18 IV Last administered on 05/08/17 06:03; Admin Dose 40 MG; Start 05/02/17 at 15:00 Diltiazem HCl (Cardizem-D5W 125 Mg/125 ml Drip) 125 ml @ 5 mls/hr TITRATE IV Last administered on 05/02/17 19:11; Admin Dose 5 MLS/HR; Start 05/02/17 at 19: 00 Hydrocortisone (Solu-Cortef) 100 mg BID IV Last administered on 05/08/17 09:40 ; Admin Dose 100 MG; Start 05/04/17 at 21:00 Valacyclovir HCl (Valtrex) 1,000 mg DAILY GTB Last administered on 05/08/17 09 :39; Admin Dose 1,000 MG; Start 05/06/17 at 09:00 Metoprolol Tartrate (Lopressor) 25 mg QID GTB Last administered on 05/08/17 09 :39; Admin Dose 25 MG; Start 05/07/17 at 09:00 Furosemide (Lasix) 40 mg Q12 IV Last administered on 05/08/17t 09:40; Admin Dose 40 MG; Start 05/08/17 at 09:00 Assessment/Plan Chief Complaint/Hosp Course IMP: 1. Status post septic shock secondary to above likely aspiration pneumonia. Now on mechanical ventilation via tracheostomy. 2. Multifocal pneumonia aspiration vs.HCAP, 3. Hypercapnic Respiratory Failure--likely due to critical illness neuropathy now on mechanical ventilation via tracheostomy, 4. Status post lactic acidosis. 5. Demand Ischemia, atrial fibrillation with rapid ventricular rate currently rate controlled. 6. Cholecystitis stable, not for surgical intervention at present 7. Persistent leukocytosis continue ID recommendations improved WBC today. RECS: 1. Continue mechanical ventilation. Continue current ventilator settings not for weaning. 2. Oral care. 3. Aspiration precautions. 4. Continue vasopressors as needed. 5. Continue antibiotics ID recommendations 6. Continue physical therapy if tolerated. 7. Palliative care evaluation and recommendations Critical care time 40 minutes. Stable for transfer to telemetry, consider [place] eval Problems: DARWIN CRAWFORD MD, [facility] May 08, 2017 10:14
--- NOTE | 2017-05-08 16:37 | CONS ---
Date/Time of Note Date/Time of Note DATE: 05/08/17 TIME: 16:29 Assessment/Plan Assessment/Plan Chief Complaint/Hosp Course ID PROGRESS NOTE CURRENT ABX +>Cancidas #, MERREM, Flagyl, Valtrex s/p Merrem #14 days-> DC'd 04/26 24H INTERVAL SUMMARY/HOSPITAL COURSE * Clinically status quo -> awake, alert, follows commands, confused * RN reports [facility] Infection Control inquiring about clarification on need for isolation for herpes simplex virus lip lesions ? * 05/06 SPUTUM RESPIRATORY CULTURE Final Organism 1 PSEUDOMONAS AERUGINOSA QUANTITY 2+ P.AERUG M.I.C. RX --------- --- AMIKACIN <=2 S AZTREONAM R CEFEPIME 8 S CEFTAZIDIME 8 S CIPROFLOXACIN I GENTAMICIN <=1 S IMIPENEM >=16 R LEVOFLOXACIN >=8 R TOBRAMYCIN <=1 S PIPERACILLIN/TAZOBACTAM 32 S PHYSICAL EXAMINATION: GENERAL: 66 yo F, stable on the Vent HEENT: Atraumatic, (+)Lip crusting lesions healing NECK: (+)Trach in place secure to VENT CHEST: Rise symmetrical w/coarse BS, scattered rales/rhonchi ABDOMEN: Soft, peg EXTREMITIES: Warm, moves extremities ID ASSESSMENT: 66 yo F w/PMHx tongue cancer, chronic trach re-admit [facility] from [facility] with: 1. s/p Acute severe sepsis/shock on admission w/(+)fever, tachycardia, lactic acidosis, leukocytosis, (+)troponin leak = RESOLVED 2. Fungemia => repeat BCx negative 3. Acute respiratory failure = recurrent issue s/p intubation x3rd episode w/ extubation, now with Trach secure to Vent 3. HCAP=> Recurrent Aspiration PNA post emesis // Hx of GNR tracheobronchitis * Sputum 04/21/17 (+)Yeast * 04/06/17 (+)PSAR = MDRO * 04/06/17 (+)Proteus Mirabilis 4. Acute CHF w/elevated BNP 8000 in setting tachycardia, sepsis, pulmonary edema on CXR 5. s/p Nausea w/emesis on admission -> GI on the case * Query: DM Autonomic Gastroparesis * GERD 6. Cholelithiasis w/dilated CBD->HIDA scan (+cholecystitis 04/12/17=> s/p Mansi Drain 04/17/17, no surgery per GI 7. Acute renal failure = started on HD 8. Dysphagia sp PEG placement 9. Paroxysmal Afib 10. NSTEMI in setting sepsis, tachycardia, acute hypoxic respiratory failure, acute CHF exacerbation 11. Elevated glucose - iatrogenic diabetes while on IV steroids 12. Leukocytosis = partial steroids demargination 13. Lip lesions => consistent w/herpes simplex virus outbreak -> On Valtrex 14. s/p GIB associates with Acute on chronic anemia secondary to AVM ==> stopped , status post EGD on May 02 with injection of epinephrine 15. Recent (+)C.Diff on 03/07/16 (treated) w/(-)C.Diff 03/20/17 (-) MRSA Nares screen (04/03/17) INVASIVES: Trach, PEG, FC, R-FEM Amrit (05/04/17) ABX ALLERGY: Iodine CURRENT ABX: =>Cancidas #, Flagyl, Valtrex, Merrem Merrem #14 total -> DC'd 04/26=> Restarted ID PLAN: 1. Continue current ABX --PSAR is sensitive to Cefepime => Change Merrem to Cefepime + Colistin INH 2. RN reports [facility] Infection Control inquiring about clarification on need for isolation for herpes simplex virus lip lesions ? * I advised the RN that Herpes Simplex Virus does not require isolation; perhaps [facility] Infection Control was concerned about the presence of Herpes Zoster outbreak ? * No evidence of H. Zoster . Problems: Consultation Date/Type/Reason Admit Date/Time Apr 11, 2017 at 11:28 Initial Consult Date 04/11/17 Type of Consultation: ID Referring Provider: NINA MACIEL DO Exam/Review of Systems Vital Signs Vitals Vital Signs Date Time Temp Pulse Resp B/P Pulse Ox O2 Delivery O2 Flow Rate FiO2 05/08/17 16:00 78 05/08/17 13:35 16 100 40 05/08/17 10:30 146/85 05/08/17 10:00 Mechanical Ventilator 05/08/17 08:00 98.1 Intake and Output 05/07/17 05/07/17 05/08/17 15:00 23:00 07:00 Intake Total 1450 ml 750 ml 1250 ml Output Total 6875 ml 405 ml 3925 ml Balance -5425 ml 345 ml -2675 ml Results Result Diagram: 05/08/17 0400 05/08/17 0400 Results 24 hrs Laboratory Tests Test 05/07/17 18:06 05/07/17 23:47 05/08/17 04:00 05/08/17 06:05 Bedside Glucose 129 144 142 White Blood Count 15.6 #H Red Blood Count 2.78 L Hemoglobin 8.4 L Hematocrit 25.1 L Mean Corpuscular Volume 90.3 Mean Corpuscular Hemoglobin 30.2 Mean Corpuscular Hemoglobin Concent 33.5 Red Cell Distribution Width 19.6 H Platelet Count 99 L Mean Platelet Volume 13.9 H Neutrophils % 87.5 H Lymphocytes % 3.3 L Monocytes % 4.8 Eosinophils % 0.1 Basophils % 0.1 Nucleated Red Blood Cells % 0.0 Neutrophils # 13.6 H Lymphocytes # 0.5 L Monocytes # 0.8 Eosinophils # 0.0 Basophils # 0.0 Nucleated Red Blood Cells # 0.0 Sodium Level 139 Potassium Level 3.4 L Chloride Level 99 Carbon Dioxide Level 29 Anion Gap 14 Blood Urea Nitrogen 54 H Creatinine 1.63 H Glucose Level 118 Calcium Level 8.3 L Phosphorus Level 2.7 Magnesium Level 2.0 Total Bilirubin 0.4 Direct Bilirubin 0.00 Indirect Bilirubin 0.4 Aspartate Amino Transf (AST/SGOT) 31 Alanine Aminotransferase (ALT/SGPT) 50 Alkaline Phosphatase 120 Total Protein 4.5 L Albumin 2.7 L Globulin 1.80 Albumin/Globulin Ratio 1.50 Test 05/08/17 11:31 Bedside Glucose 147 Medications Medications Current Medications Aspirin (Aspirin) 325 mg DAILY NGT Last administered on 04/30/17 08:43; Admin Dose 325 MG; Start 04/12/17 at 09:00; Status Future Hold Metoprolol Tartrate (Lopressor) 5 mg Q4H PRN IV HR>110 Hold SBP<110 Last administered on 04/20/17 17:36; Admin Dose 5 MG; Start 04/11/17 at 13:30 Miscellaneous Information 1 ea NOTE XX ; Start 04/11/17 at 16:30 Glucose (Glutose) 15 gm Q15M PRN PO DECREASED GLUCOSE Last administered on 05/07 03:27; Admin Dose 15 GM; Start 04/11/17 at 16:30 Glucose (Glutose) 22.5 gm Q15M PRN PO DECREASED GLUCOSE; Start 04/11/17 at 16: 30 Dextrose (D50w Syringe) 25 ml Q15M PRN IV DECREASED GLUCOSE Last administered on 04/12/17 23:56; Admin Dose 25 ML; Start 04/11/17 at 16:30 Dextrose (D50w Syringe) 50 ml Q15M PRN IV DECREASED GLUCOSE; Start 04/11/17 at 16:30 Glucagon (Glucagen) 1 mg Q15M PRN IM DECREASED GLUCOSE; Start 04/11/17 at 16:30 Glucose (Glutose) 15 gm Q15M PRN BUCCAL DECREASED GLUCOSE; Start 04/11/17 at 16 :30 Metoclopramide HCl (Reglan) 10 mg Q6 IV Last administered on 05/08/17 11:32; Admin Dose 10 MG; Start 04/12/17 at 18:00 Insulin Aspart (Novolog Insulin Pen) NOVOLOG *MILD* ALGORI... Q6H SC Last administered on 05/08/17 11:35; Admin Dose 1 UNIT; Start 04/15/17 at 00:00 IV Flush (NS 10 ml) 10 ml PRN PRN IV FLUSH LINE; Start 04/15/17 at 13:00 Amiodarone HCl (Cordarone) 200 mg BID GTB Last administered on 05/08/17 09:38 ; Admin Dose 200 MG; Start 04/16/17 at 13:00 Heparin Sodium (Porcine) (Heparin (5000 Units/0.5 ml)) 5,000 unit BID SC Last administered on 04/30/17 21:03; Admin Dose 5,000 UNIT; Start 04/18/17 at 16:22; Status Future Hold Citalopram Hydrobromide (Celexa) 20 mg DAILY NGT Last administered on 09:42; Admin Dose 20 MG; Start 04/19/17 at 09:00 Hydralazine HCl 20 mg 20 mg Q6H PRN IV sbp ABOVE 160 Last administered on 12:23; Admin Dose 20 MG; Start 04/18/17 at 18:30 Caspofungin/ Sodium Chloride (Cancidas/NS) 250 ml @ 250 mls/hr Q24H IV Last administered on 05/08/17 09:41; Admin Dose 250 MLS/HR; Start 04/21/17 at 10:00 Chlorhexidine Gluconate (Peridex) 15 ml BID MT Last administered on 05/08/17 09:40; Admin Dose 15 ML; Start 04/22/17 at 21:00 Vitamin A/Vitamin D (Vitamin A & D Oint) 1 applic TID TOP Last administered on 05/08/17 12:52; Admin Dose 1 APPLIC; Start 04/22/17 at 21:00 Vitamin A/Vitamin D (Vitamin A & D Oint) 1 applic TID PRN TOP DRYNESS Last administered on 04/22/17 15:29; Admin Dose 1 APPLIC; Start 04/22/17 at 15:00 Acetaminophen/ Hydrocodone Bitart ([place] (5/325)) 1 tab Q6H GTB Last administered on 05/08/17 16:25; Admin Dose 1 TAB; Start 04/22/17 at 21:30 Spironolactone (Aldactone) 25 mg DAILY NGT Last administered on 05/08/17 09:42 ; Admin Dose 25 MG; Start 04/25/17 at 19:00; Status Future hold Diltiazem HCl 5 mg 5 mg Q1H PRN IV HEART RATE GREATER THAN 120 Last administered on 04/29/17 06:17; Admin Dose 5 MG; Start 04/29/17 at 05:00 Meropenem/Sodium Chloride (Merrem 500mg/50 ml(Pmx)) 50 ml @ 100 mls/hr Q12 IVPB Last administered on 05/08/17 09:40; Admin Dose 100 MLS/HR; Start at 12:00 Metronidazole 500 mg 500 mg Q8 GTB Last administered on 05/08/17 12:53; Admin Dose 500 MG; Start 04/30/17 at 22:00 Sodium Chloride 1,000 ml @ 0 mls/hr Q0M IV Last administered on 05/01/17 03: 00; Admin Dose 1,000 MLS/HR; Start 05/01/17 at 03:00 Sodium Chloride (NS) 1,000 ml @ 0 mls/hr Q0M IV Last administered on 04:00; Admin Dose 1,000 MLS/HR; Start 05/01/17 at 03:30 Pantoprazole 40 mg 40 mg BID@06,18 IV Last administered on 05/08/17 06:03; Admin Dose 40 MG; Start 05/02/17 at 15:00 Diltiazem HCl (Cardizem-D5W 125 Mg/125 ml Drip) 125 ml @ 5 mls/hr TITRATE IV Last administered on 05/02/17 19:11; Admin Dose 5 MLS/HR; Start 05/02/17 at 19: 00 Hydrocortisone (Solu-Cortef) 100 mg BID IV Last administered on 05/08/17 09:40 ; Admin Dose 100 MG; Start 05/04/17 at 21:00 Valacyclovir HCl (Valtrex) 1,000 mg DAILY GTB Last administered on 05/08/17 09 :39; Admin Dose 1,000 MG; Start 05/06/17 at 09:00 Metoprolol Tartrate (Lopressor) 25 mg QID GTB Last administered on 05/08/17 16 :25; Admin Dose 25 MG; Start 05/07/17 at 09:00 Furosemide (Lasix) 40 mg Q12 IV Last administered on 05/08/17 09:40; Admin Dose 40 MG; Start 05/08/17 at 09:00 MARGOT WILLS NP May 08, 2017 16:37
[2017-05-08] MEDS: CEFEPIME 1GM/50 ML (PMX) 50 ML IVPB SCH (17:20)
--- NOTE | 2017-05-08 18:21 | CONS ---
Date/Time of Note Date/Time of Note DATE: 05/08/17 TIME: 18:21 Assessment/Plan Assessment/Plan Chief Complaint/Hosp Course Patient is a 66 year old female with a history of diabetes mellitus hypertension chronic vent dependency, history of tongue cancer status post resection has a G-tube. GI consult was called in for GI bleeding anemia requiring blood transfusion. Her other problems include aspiration pneumonia, atrial fibrillation well controlled. Patient also had a sepsis and fungemia successfully treated. Her G-tube aspirate shows burgundy colored fluid. Patient is off all the pressor support. She is on a steroid for adrenal insufficiency Problems: Additional Assessment/Plan Additional Assessment/Plan #1 GI bleeding manifested in the form of hematemesis and large burgundy color aspirate through G-tube, successful hemostasis achieved. No further bleeding 2. Vent dependent respiratory failure 3. Atrial fibrillation 4. Diabetes mellitus 5. Hypertension 6. Status post septic shock 7. Anemia, no active bleeding 8. Prerenal azotemia, patient is on dialysis now 9. Status post cardiac arrest in the past 10. Leukocytosis 11. Encephalopathy Plan Transfuse 2 units of packed cell RBC bring hemoglobin greater than 7.5 Continue with PPI Refrain from all kind of blood thinner. Antibiotic as per ID Consultation Date/Type/Reason Admit Date/Time Apr 11, 2017 at 11:28 Initial Consult Date 05/01/17 Type of Consultation: ID Referring Provider: NINA MACIEL DO 24 HR Interval Summary Constitutional: no complaints Exam/Review of Systems Vital Signs Vitals Vital Signs Date Time Temp Pulse Resp B/P Pulse Ox O2 Delivery O2 Flow Rate FiO2 05/08/17 16:30 78 11 134/62 100 05/08/17 16:00 97.6 Mechanical Ventilator 05/08/17 16:00 40 Intake and Output 05/07/17 05/07/17 05/08/17 15:00 23:00 07:00 Intake Total 1450 ml 750 ml 1300 ml Output Total 6875 ml 405 ml 3955 ml Balance -5425 ml 345 ml -2655 ml Exam Constitutional: alert, oriented, well developed Psych: nl mood/affect, no complaints Head: atraumatic, normocephalic Eyes: EOMI, PERRL, nl conjunctiva, nl lids, nl sclera ENMT: nl external ears & nose, nl lips & teeth, nl nasal mucosa & septum Neck: non-tender, supple Respiratory: clear to auscultation, normal air movement Cardiovascular: nl pulses, regular rate and rhythm Gastrointestinal: nl liver, spleen, non-tender, soft Musculoskeletal: nl extremities to inspection, nl gait and stance Extremities: normal pulses 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, nl mental status, nl speech, nl strength Skin: nl turgor, No rash or lesions Lymph: nl lymph nodes Results Result Diagram: 05/08/17 0400 05/08/17 0400 Results 24 hrs Laboratory Tests Test 05/07/17 23:47 05/08/17 04:00 05/08/17 06:05 05/08/17 11:31 Bedside Glucose 144 142 147 White Blood Count 15.6 #H Red Blood Count 2.78 L Hemoglobin 8.4 L Hematocrit 25.1 L Mean Corpuscular Volume 90.3 Mean Corpuscular Hemoglobin 30.2 Mean Corpuscular Hemoglobin Concent 33.5 Red Cell Distribution Width 19.6 H Platelet Count 99 L Mean Platelet Volume 13.9 H Neutrophils % 87.5 H Lymphocytes % 3.3 L Monocytes % 4.8 Eosinophils % 0.1 Basophils % 0.1 Nucleated Red Blood Cells % 0.0 Neutrophils # 13.6 H Lymphocytes # 0.5 L Monocytes # 0.8 Eosinophils # 0.0 Basophils # 0.0 Nucleated Red Blood Cells # 0.0 Sodium Level 139 Potassium Level 3.4 L Chloride Level 99 Carbon Dioxide Level 29 Anion Gap 14 Blood Urea Nitrogen 54 H Creatinine 1.63 H Glucose Level 118 Calcium Level 8.3 L Phosphorus Level 2.7 Magnesium Level 2.0 Total Bilirubin 0.4 Direct Bilirubin 0.00 Indirect Bilirubin 0.4 Aspartate Amino Transf (AST/SGOT) 31 Alanine Aminotransferase (ALT/SGPT) 50 Alkaline Phosphatase 120 Total Protein 4.5 L Albumin 2.7 L Globulin 1.80 Albumin/Globulin Ratio 1.50 Test 05/08/17 17:21 Bedside Glucose 144 Medications Medications Current Medications Aspirin (Aspirin) 325 mg DAILY NGT Last administered on 04/30/17 08:43; Admin Dose 325 MG; Start 04/12/17 at 09:00; Status Future Hold Metoprolol Tartrate (Lopressor) 5 mg Q4H PRN IV HR>110 Hold SBP<110 Last administered on 04/20/17 17:36; Admin Dose 5 MG; Start 04/11/17 at 13:30 Miscellaneous Information 1 ea NOTE XX ; Start 04/11/17 at 16:30 Glucose (Glutose) 15 gm Q15M PRN PO DECREASED GLUCOSE Last administered on 05/07 03:27; Admin Dose 15 GM; Start 04/11/17 at 16:30 Glucose (Glutose) 22.5 gm Q15M PRN PO DECREASED GLUCOSE; Start 04/11/17 at 16: 30 Dextrose (D50w Syringe) 25 ml Q15M PRN IV DECREASED GLUCOSE Last administered on 04/12/17 23:56; Admin Dose 25 ML; Start 04/11/17 at 16:30 Dextrose (D50w Syringe) 50 ml Q15M PRN IV DECREASED GLUCOSE; Start 04/11/17 at 16:30 Glucagon (Glucagen) 1 mg Q15M PRN IM DECREASED GLUCOSE; Start 04/11/17 at 16:30 Glucose (Glutose) 15 gm Q15M PRN BUCCAL DECREASED GLUCOSE; Start 04/11/17 at 16 :30 Metoclopramide HCl (Reglan) 10 mg Q6 IV Last administered on 05/08/17 17:20; Admin Dose 10 MG; Start 04/12/17 at 18:00 Insulin Aspart (Novolog Insulin Pen) NOVOLOG *MILD* ALGORI... Q6H SC Last administered on 05/08/17 17:24; Admin Dose 1 UNIT; Start 04/15/17 at 00:00 IV Flush (NS 10 ml) 10 ml PRN PRN IV FLUSH LINE; Start 04/15/17 at 13:00 Amiodarone HCl (Cordarone) 200 mg BID GTB Last administered on 05/08/17 09:38 ; Admin Dose 200 MG; Start 04/16/17 at 13:00 Heparin Sodium (Porcine) (Heparin (5000 Units/0.5 ml)) 5,000 unit BID SC Last administered on 04/30/17 21:03; Admin Dose 5,000 UNIT; Start 04/18/17 at 16:22; Status Future Hold Citalopram Hydrobromide (Celexa) 20 mg DAILY NGT Last administered on 09:42; Admin Dose 20 MG; Start 04/19/17 at 09:00 Hydralazine HCl 20 mg 20 mg Q6H PRN IV sbp ABOVE 160 Last administered on 12:23; Admin Dose 20 MG; Start 04/18/17 at 18:30 Caspofungin/ Sodium Chloride (Cancidas/NS) 250 ml @ 250 mls/hr Q24H IV Last administered on 05/08/17 09:41; Admin Dose 250 MLS/HR; Start 04/21/17 at 10:00 Chlorhexidine Gluconate (Peridex) 15 ml BID MT Last administered on 05/08/17 09:40; Admin Dose 15 ML; Start 04/22/17 at 21:00 Vitamin A/Vitamin D (Vitamin A & D Oint) 1 applic TID TOP Last administered on 05/08/17 12:52; Admin Dose 1 APPLIC; Start 04/22/17 at 21:00 Vitamin A/Vitamin D (Vitamin A & D Oint) 1 applic TID PRN TOP DRYNESS Last administered on 04/22/17 15:29; Admin Dose 1 APPLIC; Start 04/22/17 at 15:00 Acetaminophen/ Hydrocodone Bitart ([place] (5/325)) 1 tab Q6H GTB Last administered on 05/08/17 16:25; Admin Dose 1 TAB; Start 04/22/17 at 21:30 Spironolactone (Aldactone) 25 mg DAILY NGT Last administered on 05/08/17 09:42 ; Admin Dose 25 MG; Start 04/25/17 at 19:00; Status Future hold Diltiazem HCl (Cardizem Iv) 5 mg Q1H PRN IV HEART RATE GREATER THAN 120 Last administered on 04/29/17 06:17; Admin Dose 5 MG; Start 04/29/17 at 05:00 Metronidazole 500 mg 500 mg Q8 GTB Last administered on 05/08/17 12:53; Admin Dose 500 MG; Start 04/30/17 at 22:00 Sodium Chloride 1,000 ml @ 0 mls/hr Q0M IV Last administered on 05/01/17 03: 00; Admin Dose 1,000 MLS/HR; Start 05/01/17 at 03:00 Sodium Chloride (NS) 1,000 ml @ 0 mls/hr Q0M IV Last administered on 04:00; Admin Dose 1,000 MLS/HR; Start 05/01/17 at 03:30 Pantoprazole 40 mg 40 mg BID@06,18 IV Last administered on 05/08/17 17:20; Admin Dose 40 MG; Start 05/02/17 at 15:00 Diltiazem HCl (Cardizem-D5W 125 Mg/125 ml Drip) 125 ml @ 5 mls/hr TITRATE IV Last administered on 05/02/17 19:11; Admin Dose 5 MLS/HR; Start 05/02/17 at 19: 00 Hydrocortisone (Solu-Cortef) 100 mg BID IV Last administered on 05/08/17 09:40 ; Admin Dose 100 MG; Start 05/04/17 at 21:00 Valacyclovir HCl (Valtrex) 1,000 mg DAILY GTB Last administered on 05/08/17 09 :39; Admin Dose 1,000 MG; Start 05/06/17 at 09:00 Metoprolol Tartrate (Lopressor) 25 mg QID GTB Last administered on 05/08/17 16 :25; Admin Dose 25 MG; Start 05/07/17 at 09:00 Furosemide 40 mg 40 mg Q12 IV Last administered on 05/08/17 09:40; Admin Dose 40 MG; Start 05/08/17 at 09:00 Cefepime HCl (Maxipime 1gm/50 ml (Pmx)) 50 ml @ 100 mls/hr Q24H IVPB Last administered on 05/08/17 17:20; Admin Dose 100 MLS/HR; Start 05/08/17 at 18:00 ALYSSA THOMPSON MD May 08, 2017 18:21
[2017-05-08] MEDS: COLISTIMETHATE (25 MG/ML INHAL SYG) NEB SCH (22:59)
[2017-05-09] VITALS (31 sets, daily range): BP systolic 86–156; BP diastolic 50–75; PULSE 61–78; RESP 16–21
[2017-05-09] MEDS: METOCLOPRAMIDE 10 MG INJ IV SCH ×4 (00:53→18:28)
[2017-05-09] MEDS: LEVALBUTEROL (HFA) 15 GM INHALER INH SCH ×4 (01:41→20:33)
[2017-05-09] MEDS: HYDROCODONE/APAP (5/325) TAB GTB SCH ×4 (04:24→21:34)
[2017-05-09] MEDS: PANTOPRAZOLE 40 MG INJ IV SCH ×2 (05:53→18:29)
[2017-05-09] MEDS: metroNIDAZOLE 500 MG TAB GTB SCH ×3 (05:54→21:44)
[2017-05-09] MEDS: INSULIN ASPART [NOVOLOG] 3 ML PEN SC SCH ×4 (05:54→18:00)
[2017-05-09] MEDS: LEVOTHYROXINE 75 MCG TAB GTB SCH (06:05)
[2017-05-09 06:43] LABS: AADO2 Arterial 96.5 mmHg (7.0-24.0); Allen Test ACCEPTAB; Arterial Base Excess 2.3 mmol/L (-3.0-3); Arterial COHb 0.3 % (0.0-3.0); Arterial Fraction of Oxyhgb 97.4 % (93.0-99.0); Arterial MetHb 0.5 % (0.0-1.5); Arterial Total Hemglobin 9.1 g/dl (12.0-18.0); Blood Gas Mean Airway Pressure 13; MODE VENT - AC
[2017-05-09 06:55] LABS: ABNORMAL IP MESSAGE 1; BASOPHILS % 0.1 % (0.0-2.0); EOSINOPHILS % 0.1 % (0.0-7.0); HEMATOCRIT 23.7 % (37.0-47.0); HEMOGLOBIN 7.8 g/dl (12.0-16.0); LYMPHOCYTES # 0.5 10^3/ul (0.8-2.9); LYMPHOCYTES % 2.7 % (15.0-51.0); MEAN CORPUSCULAR HEMOGLOBIN 30.1 pg (29.0-33.0); MEAN CORPUSCULAR HGB CONC 32.9 g/dl (32.0-37.0); MEAN CORPUSCULAR VOLUME 91.5 fl (82.0-101.0); MEAN PLATELET VOLUME 13.4 fl (7.4-10.4); MONOCYTE # 0.7 10^3/ul (0.3-0.9); MONOCYTES % 3.3 % (0.0-11.0); NEUTROPHIL # 18.2 10^3/ul (1.6-7.5); PLATELET COUNT 114 10^3/UL (140-415); RED BLOOD COUNT 2.59 10^6/ul (4.20-5.40); RED CELL DISTRIBUTION WIDTH 19.5 % (11.5-14.5); WHITE BLOOD COUNT 19.8 10^3/ul (4.8-10.8)
[2017-05-09 07:09] LABS: NEUTROPHILS % 92.3 % (39.0-77.0); POSITIVE DIFF @See below
[2017-05-09] MEDS: COLISTIMETHATE (25 MG/ML INHAL SYG) NEB SCH ×2 (07:19→20:41)
[2017-05-09] MEDS ORDERED: ALBUMIN HUMAN 25% 100 ML IV ONE (07:30)
[2017-05-09 08:22] LABS: CALCIUM 8.1 mg/dl (8.4-10.2); CREATININE 1.65 mg/dl (0.44-1.00); PHOSPHORUS 3.3 mg/dl (2.5-4.9); POTASSIUM 3.2 mmol/L (3.5-5.1)
[2017-05-09] MEDS ORDERED: POTASSIUM CHLORIDE 20 MEQ POWDER FOR ORAL SOLN GTB ONE (09:00)
--- NOTE | 2017-05-09 12:16 | CONS ---
Date/Time of Note Date/Time of Note DATE: 05/09/17 TIME: 12:15 Assessment/Plan Assessment/Plan Chief Complaint/Hosp Course Patient is a 66 year old female with a history of diabetes mellitus hypertension chronic vent dependency, history of tongue cancer status post resection has a G-tube. GI consult was called in for GI bleeding anemia requiring blood transfusion. Her other problems include aspiration pneumonia, atrial fibrillation well controlled. Patient also had a sepsis and fungemia successfully treated. Her G-tube aspirate shows burgundy colored fluid. Patient is off all the pressor support. She is on a steroid for adrenal insufficiency Problems: Additional Assessment/Plan Additional Assessment/Plan #1 GI bleeding manifested in the form of hematemesis and large burgundy color aspirate through G-tube, successful hemostasis achieved. No further bleeding 2. Vent dependent respiratory failure 3. Atrial fibrillation 4. Diabetes mellitus 5. Hypertension 6. Status post septic shock 7. Anemia, no active bleeding, further drop in hematocrit may be due to chronic disease 8. Prerenal azotemia, patient is on dialysis now 9. Status post cardiac arrest in the past 10. Leukocytosis 11. Encephalopathy Plan Transfuse 2 units of packed cell RBC bring hemoglobin greater than 7.5 Continue with PPI Refrain from all kind of blood thinner. Consultation Date/Type/Reason Admit Date/Time Apr 11, 2017 at 11:28 Initial Consult Date 05/01/17 Type of Consultation: ID Referring Provider: NINA MACIEL DO 24 HR Interval Summary Free Text/Dictation No GI bleeding Swollen upper and lower extremity Exam/Review of Systems Vital Signs Vitals Vital Signs Date Time Temp Pulse Resp B/P Pulse Ox O2 Delivery O2 Flow Rate FiO2 05/09/17 11:33 97.6 74 129/62 05/09/17 11:15 16 99 30 05/08/17 22:00 Mechanical Ventilator Intake and Output 05/08/17 05/08/17 05/09/17 15:00 23:00 07:00 Intake Total 810 ml 1110 ml 375 ml Output Total 370 ml 255 ml 400 ml Balance 440 ml 855 ml -25 ml Exam Respiratory: other (Patient is on vent) Cardiovascular: nl pulses, regular rate and rhythm Gastrointestinal: nl liver, spleen, non-tender, soft Extremities: edema, pitting pedal edema Neurological: confused Results Result Diagram: 05/09/17 0603 05/09/17 0603 Results 24 hrs Laboratory Tests Test 05/08/17 17:21 05/09/17 00:51 05/09/17 05:51 05/09/17 06:03 Bedside Glucose 144 98 116 White Blood Count 19.8 #H Red Blood Count 2.59 L Hemoglobin 7.8 L Hematocrit 23.7 L Mean Corpuscular Volume 91.5 Mean Corpuscular Hemoglobin 30.1 Mean Corpuscular Hemoglobin Concent 32.9 Red Cell Distribution Width 19.5 H Platelet Count 114 L Mean Platelet Volume 13.4 H Neutrophils % 92.3 H Lymphocytes % 2.7 L Monocytes % 3.3 Eosinophils % 0.1 Basophils % 0.1 Nucleated Red Blood Cells % 0.0 Neutrophils # 18.2 H Lymphocytes # 0.5 L Monocytes # 0.7 Eosinophils # 0.0 Basophils # 0.0 Nucleated Red Blood Cells # 0.0 Sodium Level 139 Potassium Level 3.2 L Chloride Level 99 Carbon Dioxide Level 29 Anion Gap 14 Blood Urea Nitrogen 56 H Creatinine 1.65 H Glucose Level 94 Calcium Level 8.1 L Phosphorus Level 3.3 Magnesium Level 2.0 Test 05/09/17 06:20 Blood Gas Specimen Source Blood arterial Arterial Blood Date Drawn 05/09/2017 6:31:42 AM Arterial Blood pH (Temp corrected) 7.470 H Arterial Blood pCO2 (Temp correct) 36.5 Arterial Blood pO2 (Temp corrected) 146.7 H Arterial Blood HCO3 26.0 Arterial Blood Base Excess 2.3 Arterial Blood Oxygen Saturation 98.2 H Jonn Test ACCEPTAB Arterial Blood Gas Puncture Site Right Radial Arterial Blood Carboxyhemoglobin 0.3 Arterial Blood Methemoglobin 0.5 Blood Gas A-a O2 Differential 96.5 H Oxyhemoglobin Percent 97.4 Total Hemoglobin 9.1 L Blood Gas Temperature 37.0 Blood Gas Respiration Rate 16.0 Blood Gas Actual Respiration Rate 16 Blood Gas Modality VENT - AC FiO2 40.0 Blood Gas Tidal Volume 500.0 Blood Gas Mean Airway Pressure 13 Blood Gas Low PEEP Setting 5.0 Blood Gas Inspiratory Pressure 34.0 Blood Gas Notified Mason TAPIA RCP Blood Gas Notified Time 05/09/2017 6:43:13 AM Medications Medications Current Medications Aspirin (Aspirin) 325 mg DAILY NGT Last administered on 04/30/17t 08:43; Admin Dose 325 MG; Start 04/12/17 at 09:00; Status Future Hold Metoprolol Tartrate (Lopressor) 5 mg Q4H PRN IV HR>110 Hold SBP<110 Last administered on 04/20/17 17:36; Admin Dose 5 MG; Start 04/11/17 at 13:30 Miscellaneous Information 1 ea NOTE XX ; Start 04/11/17 at 16:30 Glucose (Glutose) 15 gm Q15M PRN PO DECREASED GLUCOSE Last administered on 05/07 03:27; Admin Dose 15 GM; Start 04/11/17 at 16:30 Glucose (Glutose) 22.5 gm Q15M PRN PO DECREASED GLUCOSE; Start 04/11/17 at 16: 30 Dextrose (D50w Syringe) 25 ml Q15M PRN IV DECREASED GLUCOSE Last administered on 04/12/17 23:56; Admin Dose 25 ML; Start 04/11/17 at 16:30 Dextrose (D50w Syringe) 50 ml Q15M PRN IV DECREASED GLUCOSE; Start 04/11/17 at 16:30 Glucagon (Glucagen) 1 mg Q15M PRN IM DECREASED GLUCOSE; Start 04/11/17 at 16:30 Glucose (Glutose) 15 gm Q15M PRN BUCCAL DECREASED GLUCOSE; Start 04/11/17 at 16 :30 Metoclopramide HCl (Reglan) 10 mg Q6 IV Last administered on 05/09/17 05:53; Admin Dose 10 MG; Start 04/12/17 at 18:00 Insulin Aspart (Novolog Insulin Pen) NOVOLOG *MILD* ALGORI... Q6H SC Last administered on 05/08/17 17:24; Admin Dose 1 UNIT; Start 04/15/17 at 00:00 IV Flush (NS 10 ml) 10 ml PRN PRN IV FLUSH LINE; Start 04/15/17 at 13:00 Amiodarone HCl (Cordarone) 200 mg BID GTB Last administered on 05/08/17 20:40 ; Admin Dose 200 MG; Start 04/16/17 at 13:00 Heparin Sodium (Porcine) (Heparin (5000 Units/0.5 ml)) 5,000 unit BID SC Last administered on 04/30/17 21:03; Admin Dose 5,000 UNIT; Start 04/18/17 at 16:22; Status Future Hold Citalopram Hydrobromide (Celexa) 20 mg DAILY NGT Last administered on 09:42; Admin Dose 20 MG; Start 04/19/17 at 09:00 Hydralazine HCl 20 mg 20 mg Q6H PRN IV sbp ABOVE 160 Last administered on 12:23; Admin Dose 20 MG; Start 04/18/17 at 18:30 Caspofungin/ Sodium Chloride (Cancidas/NS) 250 ml @ 250 mls/hr Q24H IV Last administered on 05/08/17 09:41; Admin Dose 250 MLS/HR; Start 04/21/17 at 10:00 Chlorhexidine Gluconate (Peridex) 15 ml BID MT Last administered on 05/08/17 20:41; Admin Dose 15 ML; Start 04/22/17 at 21:00 Vitamin A/Vitamin D (Vitamin A & D Oint) 1 applic TID TOP Last administered on 05/08/17 20:41; Admin Dose 1 APPLIC; Start 04/22/17 at 21:00 Vitamin A/Vitamin D (Vitamin A & D Oint) 1 applic TID PRN TOP DRYNESS Last administered on 04/22/17 15:29; Admin Dose 1 APPLIC; Start 04/22/17 at 15:00 Acetaminophen/ Hydrocodone Bitart ([place] (5/325)) 1 tab Q6H GTB Last administered on 05/09/17 04:24; Admin Dose 1 TAB; Start 04/22/17 at 21:30 Spironolactone (Aldactone) 25 mg DAILY NGT Last administered on 05/08/17 09:42 ; Admin Dose 25 MG; Start 04/25/17 at 19:00; Status Future hold Diltiazem HCl (Cardizem Iv) 5 mg Q1H PRN IV HEART RATE GREATER THAN 120 Last administered on 04/29/17 06:17; Admin Dose 5 MG; Start 04/29/17 at 05:00 Metronidazole 500 mg 500 mg Q8 GTB Last administered on 05/09/17 05:54; Admin Dose 500 MG; Start 04/30/17 at 22:00 Sodium Chloride 1,000 ml @ 0 mls/hr Q0M IV Last administered on 05/01/17 03: 00; Admin Dose 1,000 MLS/HR; Start 05/01/17 at 03:00 Sodium Chloride (NS) 1,000 ml @ 0 mls/hr Q0M IV Last administered on 04:00; Admin Dose 1,000 MLS/HR; Start 05/01/17 at 03:30 Pantoprazole 40 mg 40 mg BID@06,18 IV Last administered on 05/09/17 05:53; Admin Dose 40 MG; Start 05/02/17 at 15:00 Diltiazem HCl (Cardizem-D5W 125 Mg/125 ml Drip) 125 ml @ 5 mls/hr TITRATE IV Last administered on 05/02/17 19:11; Admin Dose 5 MLS/HR; Start 05/02/17 at 19: 00 Hydrocortisone (Solu-Cortef) 100 mg BID IV Last administered on 05/08/17 20:41 ; Admin Dose 100 MG; Start 05/04/17 at 21:00 Valacyclovir HCl (Valtrex) 1,000 mg DAILY GTB Last administered on 05/08/17 09 :39; Admin Dose 1,000 MG; Start 05/06/17 at 09:00 Metoprolol Tartrate (Lopressor) 25 mg QID GTB Last administered on 05/08/17 20 :41; Admin Dose 25 MG; Start 05/07/17 at 09:00 Furosemide 40 mg 40 mg Q12 IV Last administered on 05/08/17 20:41; Admin Dose 40 MG; Start 05/08/17 at 09:00 Cefepime HCl (Maxipime 1gm/50 ml (Pmx)) 50 ml @ 100 mls/hr Q24H IVPB Last administered on 05/08/17 17:20; Admin Dose 100 MLS/HR; Start 05/08/17 at 18:00 ALYSSA THOMPSON MD May 09, 2017 12:16
[2017-05-09] MEDS: HYDROCORTISONE 100 MG INJ IV SCH ×2 (12:19→21:32)
[2017-05-09] MEDS: SPIRONOLACTONE 25 MG TAB NGT SCH (12:19)
[2017-05-09] MEDS: VALACYCLOVIR 500 MG TAB GTB SCH (12:19)
[2017-05-09] MEDS: CHLORHEXIDINE GLUCONATE 15 ML UD CUP MT SCH ×2 (12:19→21:32)
[2017-05-09] MEDS: AMIODARONE 200 MG TAB GTB SCH ×2 (12:19→21:33)
[2017-05-09] MEDS: CITALOPRAM 20 MG TAB NGT SCH (12:19)
[2017-05-09] MEDS: FUROSEMIDE 40 MG INJ IV SCH ×2 (12:45→21:33)
[2017-05-09] MEDS: CASPOFUNGIN 50 MG in NS 250 ML IV SCH (12:45)
[2017-05-09] MEDS: VITAMIN A & D 5 GM OINT PACKET TOP SCH ×3 (12:45→21:43)
[2017-05-09] MEDS: METOPROLOL 25 MG TAB GTB SCH ×4 (12:46→21:35)
[2017-05-09 14:22] LABS: HAAIG REFLEX REFLEX FILED
[2017-05-09 14:23] LABS: HEMOGLOBIN 7.6 g/dl (12.0-16.0)
--- NOTE | 2017-05-09 15:44 | CONS ---
Date/Time of Note Date/Time of Note DATE: 05/09/17 TIME: 15:43 Consult Date/Type/Reason Admit Date/Time Apr 11, 2017 at 11:28 Initial Consult Date 04/12/17 Type of Consultation: Pulmonary ICU Ordering Provider: NINA MACIEL DO Subjective Patient comfortable following transfer from ICU Objective Vital Signs Date Time Temp Pulse Resp B/P Pulse Ox O2 Delivery O2 Flow Rate FiO2 05/09/17 13:18 77 17 100 30 05/09/17 11:33 97.6 129/62 05/08/17 22:00 Mechanical Ventilator Intake and Output 05/08/17 05/08/17 05/09/17 15:00 23:00 07:00 Intake Total 810 ml 1110 ml 375 ml Output Total 370 ml 255 ml 400 ml Balance 440 ml 855 ml -25 ml Exam GENERAL: Elderly lady on mechanical ventilation via tracheostomy comfortable no distress VITAL SIGNS: see below. HEENT: Pupils equal, round, and reactive to light. Tracheostomy site clean and intact. CARDIAC: S1, S2, 1/6 systolic ejection murmur CHEST: Diminished air entry bilaterally. ABDOMEN: Mildly distended. Bowel sounds present no guarding or rebound EXTREMITIES: No cyanosis, clubbing edema +2 significant anasarca upper extremities NEUROLOGIC: Generalized weakness Results/Medications Result Diagram: 05/09/17 1400 05/09/17 0603 Results 24 hrs Laboratory Tests Test 05/08/17 17:21 05/09/17 00:51 05/09/17 05:51 05/09/17 06:03 Bedside Glucose 144 98 116 White Blood Count 19.8 #H Red Blood Count 2.59 L Hemoglobin 7.8 L Hematocrit 23.7 L Mean Corpuscular Volume 91.5 Mean Corpuscular Hemoglobin 30.1 Mean Corpuscular Hemoglobin Concent 32.9 Red Cell Distribution Width 19.5 H Platelet Count 114 L Mean Platelet Volume 13.4 H Neutrophils % 92.3 H Lymphocytes % 2.7 L Monocytes % 3.3 Eosinophils % 0.1 Basophils % 0.1 Nucleated Red Blood Cells % 0.0 Neutrophils # 18.2 H Lymphocytes # 0.5 L Monocytes # 0.7 Eosinophils # 0.0 Basophils # 0.0 Nucleated Red Blood Cells # 0.0 Sodium Level 139 Potassium Level 3.2 L Chloride Level 99 Carbon Dioxide Level 29 Anion Gap 14 Blood Urea Nitrogen 56 H Creatinine 1.65 H Glucose Level 94 Calcium Level 8.1 L Phosphorus Level 3.3 Magnesium Level 2.0 Test 05/09/17 06:20 05/09/17 12:51 05/09/17 14:00 Blood Gas Specimen Source Blood arterial Arterial Blood Date Drawn 05/09/2017 6:31:42 AM Arterial Blood pH (Temp corrected) 7.470 H Arterial Blood pCO2 (Temp correct) 36.5 Arterial Blood pO2 (Temp corrected) 146.7 H Arterial Blood HCO3 26.0 Arterial Blood Base Excess 2.3 Arterial Blood Oxygen Saturation 98.2 H Jonn Test ACCEPTAB Arterial Blood Gas Puncture Site Right Radial Arterial Blood Carboxyhemoglobin 0.3 Arterial Blood Methemoglobin 0.5 Blood Gas A-a O2 Differential 96.5 H Oxyhemoglobin Percent 97.4 Total Hemoglobin 9.1 L Blood Gas Temperature 37.0 Blood Gas Respiration Rate 16.0 Blood Gas Actual Respiration Rate 16 Blood Gas Modality VENT - AC FiO2 40.0 Blood Gas Tidal Volume 500.0 Blood Gas Mean Airway Pressure 13 Blood Gas Low PEEP Setting 5.0 Blood Gas Inspiratory Pressure 34.0 Blood Gas Notified Mason TAPIA RCP Blood Gas Notified Time 05/09/2017 6:43:13 AM Bedside Glucose 124 Hemoglobin 7.6 L Hematocrit 23.0 L Hepatitis B Surface Antigen Pending Hepatitis B Core Total Antibody Pending Hepatitis C Antibody Pending Medications Current Medications Aspirin (Aspirin) 325 mg DAILY NGT Last administered on 04/30/17 08:43; Admin Dose 325 MG; Start 04/12/17 at 09:00; Status Future Hold Metoprolol Tartrate (Lopressor) 5 mg Q4H PRN IV HR>110 Hold SBP<110 Last administered on 04/20/17 17:36; Admin Dose 5 MG; Start 04/11/17 at 13:30 Miscellaneous Information 1 ea NOTE XX ; Start 04/11/17 at 16:30 Glucose (Glutose) 15 gm Q15M PRN PO DECREASED GLUCOSE Last administered on 05/07 03:27; Admin Dose 15 GM; Start 04/11/17 at 16:30 Glucose (Glutose) 22.5 gm Q15M PRN PO DECREASED GLUCOSE; Start 04/11/17 at 16: 30 Dextrose (D50w Syringe) 25 ml Q15M PRN IV DECREASED GLUCOSE Last administered on 04/12/17 23:56; Admin Dose 25 ML; Start 04/11/17 at 16:30 Dextrose (D50w Syringe) 50 ml Q15M PRN IV DECREASED GLUCOSE; Start 04/11/17 at 16:30 Glucagon (Glucagen) 1 mg Q15M PRN IM DECREASED GLUCOSE; Start 04/11/17 at 16:30 Glucose (Glutose) 15 gm Q15M PRN BUCCAL DECREASED GLUCOSE; Start 04/11/17 at 16 :30 Metoclopramide HCl (Reglan) 10 mg Q6 IV Last administered on 05/09/17 12:45; Admin Dose 10 MG; Start 04/12/17 at 18:00 Insulin Aspart (Novolog Insulin Pen) NOVOLOG *MILD* ALGORI... Q6H SC Last administered on 05/08/17 17:24; Admin Dose 1 UNIT; Start 04/15/17 at 00:00 IV Flush (NS 10 ml) 10 ml PRN PRN IV FLUSH LINE; Start 04/15/17 at 13:00 Amiodarone HCl (Cordarone) 200 mg BID GTB Last administered on 05/09/17 12:19 ; Admin Dose 200 MG; Start 04/16/17 at 13:00 Heparin Sodium (Porcine) (Heparin (5000 Units/0.5 ml)) 5,000 unit BID SC Last administered on 04/30/17 21:03; Admin Dose 5,000 UNIT; Start 04/18/17 at 16:22; Status Future Hold Citalopram Hydrobromide (Celexa) 20 mg DAILY NGT Last administered on 12:19; Admin Dose 20 MG; Start 04/19/17 at 09:00 Hydralazine HCl 20 mg 20 mg Q6H PRN IV sbp ABOVE 160 Last administered on 12:23; Admin Dose 20 MG; Start 04/18/17 at 18:30 Caspofungin/ Sodium Chloride (Cancidas/NS) 250 ml @ 250 mls/hr Q24H IV Last administered on 05/09/17 12:45; Admin Dose 250 MLS/HR; Start 04/21/17 at 10:00 Chlorhexidine Gluconate (Peridex) 15 ml BID MT Last administered on 05/09/17 12:19; Admin Dose 15 ML; Start 04/22/17 at 21:00 Vitamin A/Vitamin D (Vitamin A & D Oint) 1 applic TID TOP Last administered on 05/09/17 12:45; Admin Dose 1 APPLIC; Start 04/22/17 at 21:00 Vitamin A/Vitamin D (Vitamin A & D Oint) 1 applic TID PRN TOP DRYNESS Last administered on 04/22/17 15:29; Admin Dose 1 APPLIC; Start 04/22/17 at 15:00 Acetaminophen/ Hydrocodone Bitart ([place] (5/325)) 1 tab Q6H GTB Last administered on 05/09/17 12:20; Admin Dose 1 TAB; Start 04/22/17 at 21:30 Spironolactone (Aldactone) 25 mg DAILY NGT Last administered on 05/09/17 12:19 ; Admin Dose 25 MG; Start 04/25/17 at 19:00; Status Future hold Diltiazem HCl (Cardizem Iv) 5 mg Q1H PRN IV HEART RATE GREATER THAN 120 Last administered on 04/29/17 06:17; Admin Dose 5 MG; Start 04/29/17 at 05:00 Metronidazole 500 mg 500 mg Q8 GTB Last administered on 05/09/17 14:21; Admin Dose 500 MG; Start 04/30/17 at 22:00 Sodium Chloride 1,000 ml @ 0 mls/hr Q0M IV Last administered on 05/01/17 03: 00; Admin Dose 1,000 MLS/HR; Start 05/01/17 at 03:00 Sodium Chloride (NS) 1,000 ml @ 0 mls/hr Q0M IV Last administered on 04:00; Admin Dose 1,000 MLS/HR; Start 05/01/17 at 03:30 Pantoprazole 40 mg 40 mg BID@06,18 IV Last administered on 05/09/17 05:53; Admin Dose 40 MG; Start 05/02/17 at 15:00 Diltiazem HCl (Cardizem-D5W 125 Mg/125 ml Drip) 125 ml @ 5 mls/hr TITRATE IV Last administered on 05/02/17 19:11; Admin Dose 5 MLS/HR; Start 05/02/17 at 19: 00 Hydrocortisone (Solu-Cortef) 100 mg BID IV Last administered on 05/09/17 12:19 ; Admin Dose 100 MG; Start 05/04/17 at 21:00 Valacyclovir HCl (Valtrex) 1,000 mg DAILY GTB Last administered on 05/09/17 12 :19; Admin Dose 1,000 MG; Start 05/06/17 at 09:00 Metoprolol Tartrate (Lopressor) 25 mg QID GTB Last administered on 05/09/17 12 :46; Admin Dose 25 MG; Start 05/07/17 at 09:00 Furosemide 40 mg 40 mg Q12 IV Last administered on 05/09/17 12:45; Admin Dose 40 MG; Start 05/08/17 at 09:00 Cefepime HCl (Maxipime 1gm/50 ml (Pmx)) 50 ml @ 100 mls/hr Q24H IVPB Last administered on 05/08/17 17:20; Admin Dose 100 MLS/HR; Start 05/08/17 at 18:00 Assessment/Plan Chief Complaint/Hosp Course IMP: 1. Status post septic shock secondary to above likely aspiration pneumonia. Now on mechanical ventilation via tracheostomy. 2. Multifocal pneumonia aspiration vs.HCAP, 3. Hypercapnic Respiratory Failure--likely due to critical illness neuropathy now on mechanical ventilation via tracheostomy, 4. Status post lactic acidosis. 5. Demand Ischemia, atrial fibrillation with rapid ventricular rate currently rate controlled. 6. Cholecystitis stable, not for surgical intervention at present 7. Persistent leukocytosis continue ID recommendations improved WBC today. RECS: 1. Continue mechanical ventilation. Continue current ventilator settings not for weaning. 2. Oral care. 3. Aspiration precautions. 4. Continue vasopressors as needed. 5. Continue antibiotics ID recommendations 6. Continue physical therapy if tolerated. 7. Palliative care evaluation and recommendations Continue current level of care. Will require nursing home facility soon. Problems: DARWIN CRAWFORD MD, [facility] May 09, 2017 15:43
--- NOTE | 2017-05-09 17:34 | CONS ---
Date/Time of Note Date/Time of Note DATE: 05/09/17 TIME: 17:30 Assessment/Plan Assessment/Plan Chief Complaint/Hosp Course ID PROGRESS NOTE CURRENT ABX=>Cancidas #, Flagyl, Valtrex, + Cefepime #2 + Colistin INH #2 Merrem -> DC'd 05/08 Merrem #14 total -> DC'd 04/26=> Restarted 24H INTERVAL SUMMARY/HOSPITAL COURSE * She is napping w/eyes closed, VSS, no fevers, WBC remains elevated 19.8 * RN reports [facility] Infection Control inquiring about clarification on need for isolation for herpes simplex virus lip lesions ? * 05/06 SPUTUM RESPIRATORY CULTURE Final Organism 1 PSEUDOMONAS AERUGINOSA QUANTITY 2+ P.AERUG M.I.C. RX --------- --- AMIKACIN <=2 S AZTREONAM R CEFEPIME 8 S CEFTAZIDIME 8 S CIPROFLOXACIN I GENTAMICIN <=1 S IMIPENEM >=16 R LEVOFLOXACIN >=8 R TOBRAMYCIN <=1 S PIPERACILLIN/TAZOBACTAM 32 S PHYSICAL EXAMINATION: GENERAL: 66 yo F, stable on the Vent HEENT: Atraumatic, (+)Lip crusting lesions healing NECK: (+)Trach in place secure to VENT CHEST: Rise symmetrical w/coarse BS, scattered rales/rhonchi ABDOMEN: Soft, peg EXTREMITIES: Warm, moves extremities ID ASSESSMENT: 66 yo F w/PMHx tongue cancer, chronic trach re-admit [facility] from SNF with: 1. s/p Acute severe sepsis/shock on admission w/(+)fever, tachycardia, lactic acidosis, leukocytosis, (+)troponin leak = RESOLVING * Leukocytosis persisting 2. Fungemia => repeat BCx negative 3. Acute respiratory failure = recurrent issue s/p intubation x3rd episode w/ extubation, now with Trach secure to Vent 3. HCAP=> Recurrent Aspiration PNA post emesis // Hx of GNR tracheobronchitis * Sputum 04/21/17 (+)Yeast * 04/06/17 (+)PSAR = MDRO * 04/06/17 (+)Proteus Mirabilis 4. Acute CHF w/elevated BNP 8000 in setting tachycardia, sepsis, pulmonary edema on CXR 5. s/p Nausea w/emesis on admission -> GI on the case * Query: DM Autonomic Gastroparesis * GERD 6. Cholelithiasis w/dilated CBD->HIDA scan (+cholecystitis 04/12/17=> s/p Mansi Drain 04/17/17, no surgery per GI 7. Acute renal failure = started on HD 8. Dysphagia sp PEG placement 9. Paroxysmal Afib 10. NSTEMI in setting sepsis, tachycardia, acute hypoxic respiratory failure, acute CHF exacerbation 11. Elevated glucose - iatrogenic diabetes while on IV steroids 12. Leukocytosis = partial steroids demargination 13. Lip lesions => consistent w/herpes simplex virus outbreak -> On Valtrex 14. s/p GIB associates with Acute on chronic anemia secondary to AVM ==> stopped , status post EGD on May 02 with injection of epinephrine 15. Recent (+)C.Diff on 03/07/16 (treated) w/(-)C.Diff 03/20/17 (-) MRSA Nares screen (04/03/17) INVASIVES: Trach, PEG, FC, R-FEM Amrit (05/04/17) ABX ALLERGY: Iodine CURRENT ABX: =>Cancidas #, Flagyl, Valtrex, + Cefepime #2 + Colistin INH #2 Merrem -> DC'd 05/08 Merrem #14 total -> DC'd 04/26=> Restarted ID PLAN: 1. Continue current ABX --PSAR is sensitive to Cefepime => Merrem changed to Cefepime + Colistin INH 2. Repeat Stool for C.Diff due to rising WBC 3. RN reports [facility] Infection Control inquiring about clarification on need for isolation for herpes simplex virus lip lesions ? * I advised the RN that Herpes Simplex Virus does not require isolation; perhaps [facility] Infection Control was concerned about the presence of Herpes Zoster outbreak ? * No evidence of H. Zoster . Problems: Consultation Date/Type/Reason Admit Date/Time Apr 11, 2017 at 11:28 Initial Consult Date 04/11/17 Type of Consultation: ID Referring Provider: NINA MACIEL DO Exam/Review of Systems Vital Signs Vitals Vital Signs Date Time Temp Pulse Resp B/P Pulse Ox O2 Delivery O2 Flow Rate FiO2 05/09/17 17:21 67 05/09/17 15:43 98.6 116/65 05/09/17 15:18 16 100 30 05/08/17 22:00 Mechanical Ventilator Intake and Output 05/08/17 05/08/17 05/09/17 15:00 23:00 07:00 Intake Total 810 ml 1110 ml 375 ml Output Total 370 ml 255 ml 400 ml Balance 440 ml 855 ml -25 ml Results Result Diagram: 05/09/17 1400 05/09/17 0603 Results 24 hrs Laboratory Tests Test 05/09/17 00:51 05/09/17 05:51 05/09/17 06:03 05/09/17 06:20 Bedside Glucose 98 116 White Blood Count 19.8 #H Red Blood Count 2.59 L Hemoglobin 7.8 L Hematocrit 23.7 L Mean Corpuscular Volume 91.5 Mean Corpuscular Hemoglobin 30.1 Mean Corpuscular Hemoglobin Concent 32.9 Red Cell Distribution Width 19.5 H Platelet Count 114 L Mean Platelet Volume 13.4 H Neutrophils % 92.3 H Lymphocytes % 2.7 L Monocytes % 3.3 Eosinophils % 0.1 Basophils % 0.1 Nucleated Red Blood Cells % 0.0 Neutrophils # 18.2 H Lymphocytes # 0.5 L Monocytes # 0.7 Eosinophils # 0.0 Basophils # 0.0 Nucleated Red Blood Cells # 0.0 Sodium Level 139 Potassium Level 3.2 L Chloride Level 99 Carbon Dioxide Level 29 Anion Gap 14 Blood Urea Nitrogen 56 H Creatinine 1.65 H Glucose Level 94 Calcium Level 8.1 L Phosphorus Level 3.3 Magnesium Level 2.0 Blood Gas Specimen Source Blood arterial Arterial Blood Date Drawn 05/09/2017 6:31:42 AM Arterial Blood pH (Temp corrected) 7.470 H Arterial Blood pCO2 (Temp correct) 36.5 Arterial Blood pO2 (Temp corrected) 146.7 H Arterial Blood HCO3 26.0 Arterial Blood Base Excess 2.3 Arterial Blood Oxygen Saturation 98.2 H Jonn Test ACCEPTAB Arterial Blood Gas Puncture Site Right Radial Arterial Blood Carboxyhemoglobin 0.3 Arterial Blood Methemoglobin 0.5 Blood Gas A-a O2 Differential 96.5 H Oxyhemoglobin Percent 97.4 Total Hemoglobin 9.1 L Blood Gas Temperature 37.0 Blood Gas Respiration Rate 16.0 Blood Gas Actual Respiration Rate 16 Blood Gas Modality VENT - AC FiO2 40.0 Blood Gas Tidal Volume 500.0 Blood Gas Mean Airway Pressure 13 Blood Gas Low PEEP Setting 5.0 Blood Gas Inspiratory Pressure 34.0 Blood Gas Notified Whom WILLIE GARCIA Blood Gas Notified Time 05/09/2017 6:43:13 AM Test 05/09/17 12:51 05/09/17 14:00 Bedside Glucose 124 Hemoglobin 7.6 L Hematocrit 23.0 L Hepatitis B Surface Antigen Pending Hepatitis B Core Total Antibody Pending Hepatitis C Antibody Pending Medications Medications Current Medications Aspirin (Aspirin) 325 mg DAILY NGT Last administered on 04/30/17 08:43; Admin Dose 325 MG; Start 04/12/17 at 09:00; Status Future Hold Metoprolol Tartrate (Lopressor) 5 mg Q4H PRN IV HR>110 Hold SBP<110 Last administered on 04/20/17 17:36; Admin Dose 5 MG; Start 04/11/17 at 13:30 Miscellaneous Information 1 ea NOTE XX ; Start 04/11/17 at 16:30 Glucose (Glutose) 15 gm Q15M PRN PO DECREASED GLUCOSE Last administered on 05/07 03:27; Admin Dose 15 GM; Start 04/11/17 at 16:30 Glucose (Glutose) 22.5 gm Q15M PRN PO DECREASED GLUCOSE; Start 04/11/17 at 16: 30 Dextrose (D50w Syringe) 25 ml Q15M PRN IV DECREASED GLUCOSE Last administered on 04/12/17 23:56; Admin Dose 25 ML; Start 04/11/17 at 16:30 Dextrose (D50w Syringe) 50 ml Q15M PRN IV DECREASED GLUCOSE; Start 04/11/17 at 16:30 Glucagon (Glucagen) 1 mg Q15M PRN IM DECREASED GLUCOSE; Start 04/11/17 at 16:30 Glucose (Glutose) 15 gm Q15M PRN BUCCAL DECREASED GLUCOSE; Start 04/11/17 at 16 :30 Metoclopramide HCl (Reglan) 10 mg Q6 IV Last administered on 05/09/17 12:45; Admin Dose 10 MG; Start 04/12/17 at 18:00 Insulin Aspart (Novolog Insulin Pen) NOVOLOG *MILD* ALGORI... Q6H SC Last administered on 05/08/17 17:24; Admin Dose 1 UNIT; Start 04/15/17 at 00:00 IV Flush (NS 10 ml) 10 ml PRN PRN IV FLUSH LINE; Start 04/15/17 at 13:00 Amiodarone HCl (Cordarone) 200 mg BID GTB Last administered on 05/09/17 12:19 ; Admin Dose 200 MG; Start 04/16/17 at 13:00 Heparin Sodium (Porcine) (Heparin (5000 Units/0.5 ml)) 5,000 unit BID SC Last administered on 04/30/17 21:03; Admin Dose 5,000 UNIT; Start 04/18/17 at 16:22; Status Future Hold Citalopram Hydrobromide (Celexa) 20 mg DAILY NGT Last administered on 12:19; Admin Dose 20 MG; Start 04/19/17 at 09:00 Hydralazine HCl 20 mg 20 mg Q6H PRN IV sbp ABOVE 160 Last administered on 12:23; Admin Dose 20 MG; Start 04/18/17 at 18:30 Caspofungin/ Sodium Chloride (Cancidas/NS) 250 ml @ 250 mls/hr Q24H IV Last administered on 05/09/17 12:45; Admin Dose 250 MLS/HR; Start 04/21/17 at 10:00 Chlorhexidine Gluconate (Peridex) 15 ml BID MT Last administered on 05/09/17 12:19; Admin Dose 15 ML; Start 04/22/17 at 21:00 Vitamin A/Vitamin D (Vitamin A & D Oint) 1 applic TID TOP Last administered on 05/09/17 12:45; Admin Dose 1 APPLIC; Start 04/22/17 at 21:00 Vitamin A/Vitamin D (Vitamin A & D Oint) 1 applic TID PRN TOP DRYNESS Last administered on 04/22/17 15:29; Admin Dose 1 APPLIC; Start 04/22/17 at 15:00 Acetaminophen/ Hydrocodone Bitart ([place] (5/325)) 1 tab Q6H GTB Last administered on 05/09/17 12:20; Admin Dose 1 TAB; Start 04/22/17 at 21:30 Spironolactone (Aldactone) 25 mg DAILY NGT Last administered on 05/09/17 12:19 ; Admin Dose 25 MG; Start 04/25/17 at 19:00; Status Future hold Diltiazem HCl (Cardizem Iv) 5 mg Q1H PRN IV HEART RATE GREATER THAN 120 Last administered on 04/29/17 06:17; Admin Dose 5 MG; Start 04/29/17 at 05:00 Metronidazole 500 mg 500 mg Q8 GTB Last administered on 05/09/17 14:21; Admin Dose 500 MG; Start 04/30/17 at 22:00 Sodium Chloride 1,000 ml @ 0 mls/hr Q0M IV Last administered on 05/01/17 03: 00; Admin Dose 1,000 MLS/HR; Start 05/01/17 at 03:00 Sodium Chloride (NS) 1,000 ml @ 0 mls/hr Q0M IV Last administered on 04:00; Admin Dose 1,000 MLS/HR; Start 05/01/17 at 03:30 Pantoprazole 40 mg 40 mg BID@06,18 IV Last administered on 05/09/17 05:53; Admin Dose 40 MG; Start 05/02/17 at 15:00 Diltiazem HCl (Cardizem-D5W 125 Mg/125 ml Drip) 125 ml @ 5 mls/hr TITRATE IV Last administered on 05/02/17 19:11; Admin Dose 5 MLS/HR; Start 05/02/17 at 19: 00 Hydrocortisone (Solu-Cortef) 100 mg BID IV Last administered on 05/09/17 12:19 ; Admin Dose 100 MG; Start 05/04/17 at 21:00 Valacyclovir HCl (Valtrex) 1,000 mg DAILY GTB Last administered on 05/09/17 12 :19; Admin Dose 1,000 MG; Start 05/06/17 at 09:00 Metoprolol Tartrate (Lopressor) 25 mg QID GTB Last administered on 05/09/17 12 :46; Admin Dose 25 MG; Start 05/07/17 at 09:00 Furosemide 40 mg 40 mg Q12 IV Last administered on 05/09/17 12:45; Admin Dose 40 MG; Start 05/08/17 at 09:00 Cefepime HCl (Maxipime 1gm/50 ml (Pmx)) 50 ml @ 100 mls/hr Q24H IVPB Last administered on 05/08/17t 17:20; Admin Dose 100 MLS/HR; Start 05/08/17 at 18:00 MARGOT WILLS NP May 09, 2017 17:34
--- NOTE | 2017-05-09 17:41 | PN ---
Date/Time of Note Date/Time of Note DATE: 05/09/17 TIME: 17:39 Assessment/Plan VTE Prophylaxis VTE Prophylaxis Intervention: other Lines/Catheters IV Catheter Type (from [facility]): marguerite Urinary Cath still in place: Yes Reason Cath still needed: other (indicate) Assessment/Plan Chief Complaint/Hosp Course 1. acute on chronic hypoxemic respiratory failure: 2. NSTEMI: due to demand ischemia. 3. CHF/ fluid overload: due to diastolic heart failure 4. moderate 5. Arrhythmia and P afib, frequent PVC: currently in NSR. 6. ANEMIA 7. pneumonia, severe leukocytosis now. 8. sepsis and shock: BACK ON 3 pressors now 9. Anasarca 10. s/p cardiopulm arrest due to resp failure 11. renal failure 12. coagulopathy Rec: off of ASA due to active bleeding and severe anemia and coagulopathy. resp care as per PULM Team. correct lytes prn. keep K > 4, Mg > 2 cont ICU care. CONT betablocker as tolerated. cardizem IV prn . thyroid supplement . tele monitoring HD/ ultrafiltration as per renal. transfuse prn Problems: Subjective 24 Hr Interval Summary Free Text/Dictation CARDIOLOGY FOLLOW UP NOTE: D/W staff , Pt has been transferred to tele now. rhythm was reviewed. pt has remained in NSR . no Afib over night but still with Frequent PVC. still on HD and tolerated it well so far pt still s/p trach on vent Objective: General: s/p trach on vent HEENT: NC/AT. . oropharynx with old blood and multiple lesions. . NECK: NO JVD. no stridor. s/p trach on vent CV: RRR. systolic ejection murmur; no gallop or rubs. PULM: + diffuse rhonchi. GI: SOFT, NT, ND, no rebound or guarding s/p PEG Extremity: 3+ B/L LE edema. no clubbing. neuro: awake and alert and responds appropriately Psych: calm rectal: deferred Derm: multiple echymosis Exam/Review of Systems Vital Signs Vitals Vital Signs Date Time Temp Pulse Resp B/P Pulse Ox O2 Delivery O2 Flow Rate FiO2 05/09/17 17:21 67 05/09/17 17:15 16 99 30 05/09/17 15:43 98.6 116/65 05/08/17 22:00 Mechanical Ventilator Intake and Output 05/08/17 05/08/17 05/09/17 15:00 23:00 07:00 Intake Total 810 ml 1110 ml 375 ml Output Total 370 ml 255 ml 400 ml Balance 440 ml 855 ml -25 ml Results Result Diagram: 05/09/17 1400 05/09/17 0603 Results 24 hrs Laboratory Tests Test 05/09/17 00:51 05/09/17 05:51 05/09/17 06:03 05/09/17 06:20 Bedside Glucose 98 116 White Blood Count 19.8 #H Red Blood Count 2.59 L Hemoglobin 7.8 L Hematocrit 23.7 L Mean Corpuscular Volume 91.5 Mean Corpuscular Hemoglobin 30.1 Mean Corpuscular Hemoglobin Concent 32.9 Red Cell Distribution Width 19.5 H Platelet Count 114 L Mean Platelet Volume 13.4 H Neutrophils % 92.3 H Lymphocytes % 2.7 L Monocytes % 3.3 Eosinophils % 0.1 Basophils % 0.1 Nucleated Red Blood Cells % 0.0 Neutrophils # 18.2 H Lymphocytes # 0.5 L Monocytes # 0.7 Eosinophils # 0.0 Basophils # 0.0 Nucleated Red Blood Cells # 0.0 Sodium Level 139 Potassium Level 3.2 L Chloride Level 99 Carbon Dioxide Level 29 Anion Gap 14 Blood Urea Nitrogen 56 H Creatinine 1.65 H Glucose Level 94 Calcium Level 8.1 L Phosphorus Level 3.3 Magnesium Level 2.0 Blood Gas Specimen Source Blood arterial Arterial Blood Date Drawn 05/09/2017 6:31:42 AM Arterial Blood pH (Temp corrected) 7.470 H Arterial Blood pCO2 (Temp correct) 36.5 Arterial Blood pO2 (Temp corrected) 146.7 H Arterial Blood HCO3 26.0 Arterial Blood Base Excess 2.3 Arterial Blood Oxygen Saturation 98.2 H Jonn Test ACCEPTAB Arterial Blood Gas Puncture Site Right Radial Arterial Blood Carboxyhemoglobin 0.3 Arterial Blood Methemoglobin 0.5 Blood Gas A-a O2 Differential 96.5 H Oxyhemoglobin Percent 97.4 Total Hemoglobin 9.1 L Blood Gas Temperature 37.0 Blood Gas Respiration Rate 16.0 Blood Gas Actual Respiration Rate 16 Blood Gas Modality VENT - AC FiO2 40.0 Blood Gas Tidal Volume 500.0 Blood Gas Mean Airway Pressure 13 Blood Gas Low PEEP Setting 5.0 Blood Gas Inspiratory Pressure 34.0 Blood Gas Notified Whom [facility] Blood Gas Notified Time 05/09/2017 6:43:13 AM Test 05/09/17 12:51 05/09/17 14:00 Bedside Glucose 124 Hemoglobin 7.6 L Hematocrit 23.0 L Hepatitis B Surface Antigen Pending Hepatitis B Core Total Antibody Pending Hepatitis C Antibody Pending Medications Medications Current Medications Aspirin (Aspirin) 325 mg DAILY NGT Last administered on 04/30/17 08:43; Admin Dose 325 MG; Start 04/12/17 at 09:00; Status Future Hold Metoprolol Tartrate (Lopressor) 5 mg Q4H PRN IV HR>110 Hold SBP<110 Last administered on 04/20/17 17:36; Admin Dose 5 MG; Start 04/11/17 at 13:30 Miscellaneous Information 1 ea NOTE XX ; Start 04/11/17 at 16:30 Glucose (Glutose) 15 gm Q15M PRN PO DECREASED GLUCOSE Last administered on 05/07 03:27; Admin Dose 15 GM; Start 04/11/17 at 16:30 Glucose (Glutose) 22.5 gm Q15M PRN PO DECREASED GLUCOSE; Start 04/11/17 at 16: 30 Dextrose (D50w Syringe) 25 ml Q15M PRN IV DECREASED GLUCOSE Last administered on 04/12/17 23:56; Admin Dose 25 ML; Start 04/11/17 at 16:30 Dextrose (D50w Syringe) 50 ml Q15M PRN IV DECREASED GLUCOSE; Start 04/11/17 at 16:30 Glucagon (Glucagen) 1 mg Q15M PRN IM DECREASED GLUCOSE; Start 04/11/17 at 16:30 Glucose (Glutose) 15 gm Q15M PRN BUCCAL DECREASED GLUCOSE; Start 04/11/17 at 16 :30 Metoclopramide HCl (Reglan) 10 mg Q6 IV Last administered on 05/09/17 12:45; Admin Dose 10 MG; Start 04/12/17 at 18:00 Insulin Aspart (Novolog Insulin Pen) NOVOLOG *MILD* ALGORI... Q6H SC Last administered on 05/08/17 17:24; Admin Dose 1 UNIT; Start 04/15/17 at 00:00 IV Flush (NS 10 ml) 10 ml PRN PRN IV FLUSH LINE; Start 04/15/17 at 13:00 Amiodarone HCl (Cordarone) 200 mg BID GTB Last administered on 05/09/17 12:19 ; Admin Dose 200 MG; Start 04/16/17 at 13:00 Heparin Sodium (Porcine) (Heparin (5000 Units/0.5 ml)) 5,000 unit BID SC Last administered on 04/30/17 21:03; Admin Dose 5,000 UNIT; Start 04/18/17 at 16:22; Status Future Hold Citalopram Hydrobromide (Celexa) 20 mg DAILY NGT Last administered on 12:19; Admin Dose 20 MG; Start 04/19/17 at 09:00 Hydralazine HCl 20 mg 20 mg Q6H PRN IV sbp ABOVE 160 Last administered on 12:23; Admin Dose 20 MG; Start 04/18/17 at 18:30 Caspofungin/ Sodium Chloride (Cancidas/NS) 250 ml @ 250 mls/hr Q24H IV Last administered on 05/09/17 12:45; Admin Dose 250 MLS/HR; Start 04/21/17 at 10:00 Chlorhexidine Gluconate (Peridex) 15 ml BID MT Last administered on 05/09/17 12:19; Admin Dose 15 ML; Start 04/22/17 at 21:00 Vitamin A/Vitamin D (Vitamin A & D Oint) 1 applic TID TOP Last administered on 05/09/17 12:45; Admin Dose 1 APPLIC; Start 04/22/17 at 21:00 Vitamin A/Vitamin D (Vitamin A & D Oint) 1 applic TID PRN TOP DRYNESS Last administered on 04/22/17 15:29; Admin Dose 1 APPLIC; Start 04/22/17 at 15:00 Acetaminophen/ Hydrocodone Bitart ([place] (5/325)) 1 tab Q6H GTB Last administered on 05/09/17 12:20; Admin Dose 1 TAB; Start 04/22/17 at 21:30 Spironolactone (Aldactone) 25 mg DAILY NGT Last administered on 05/09/17 12:19 ; Admin Dose 25 MG; Start 04/25/17 at 19:00; Status Future hold Diltiazem HCl (Cardizem Iv) 5 mg Q1H PRN IV HEART RATE GREATER THAN 120 Last administered on 04/29/17 06:17; Admin Dose 5 MG; Start 04/29/17 at 05:00 Metronidazole 500 mg 500 mg Q8 GTB Last administered on 05/09/17 14:21; Admin Dose 500 MG; Start 04/30/17 at 22:00 Sodium Chloride 1,000 ml @ 0 mls/hr Q0M IV Last administered on 05/01/17 03: 00; Admin Dose 1,000 MLS/HR; Start 05/01/17 at 03:00 Sodium Chloride (NS) 1,000 ml @ 0 mls/hr Q0M IV Last administered on 04:00; Admin Dose 1,000 MLS/HR; Start 05/01/17 at 03:30 Pantoprazole 40 mg 40 mg BID@06,18 IV Last administered on 05/09/17 05:53; Admin Dose 40 MG; Start 05/02/17 at 15:00 Diltiazem HCl (Cardizem-D5W 125 Mg/125 ml Drip) 125 ml @ 5 mls/hr TITRATE IV Last administered on 05/02/17 19:11; Admin Dose 5 MLS/HR; Start 05/02/17 at 19: 00 Hydrocortisone (Solu-Cortef) 100 mg BID IV Last administered on 05/09/17 12:19 ; Admin Dose 100 MG; Start 05/04/17 at 21:00 Valacyclovir HCl (Valtrex) 1,000 mg DAILY GTB Last administered on 05/09/17 12 :19; Admin Dose 1,000 MG; Start 05/06/17 at 09:00 Metoprolol Tartrate (Lopressor) 25 mg QID GTB Last administered on 05/09/17 12 :46; Admin Dose 25 MG; Start 05/07/17 at 09:00 Furosemide 40 mg 40 mg Q12 IV Last administered on 05/09/17 12:45; Admin Dose 40 MG; Start 05/08/17 at 09:00 Cefepime HCl (Maxipime 1gm/50 ml (Pmx)) 50 ml @ 100 mls/hr Q24H IVPB Last administered on 05/08/17 17:20; Admin Dose 100 MLS/HR; Start 05/08/17 at 18:00 FRANCISCO BLACKWOOD MD May 09, 2017 17:41
[2017-05-09] MEDS: CEFEPIME 1GM/50 ML (PMX) 50 ML IVPB SCH (18:29)
--- NOTE | 2017-05-09 19:00 | RADRPT ---
Vent Rate: 83 bpm RR Interval: 0 msec LA Interval: 148 msec QRS Duration: 90 msec QT Interval: 344 msec QTC Interval: 404 msec P-R-T [place]: 76 - 22 - 5 degrees Sinus rhythm with frequent premature ventricular complexes Nonspecific T wave abnormality Abnormal ECG Electronically Signed By: David Garcia [id number]
--- NOTE | 2017-05-09 22:15 | PN ---
Date/Time of Note Date/Time of Note DATE: 05/09/17 TIME: 22:15 Assessment/Plan Lines/Catheters IV Catheter Type (from [facility]): BHARTI Latif in Place (from [facility]): Yes Assessment/Plan Chief Complaint/Hosp Course 1. Cholelithiasis ? cholecystitis: Ct abd: sludge and small stones in the gallbladder. No gallbladder wall thickening is noted with some pericholecystic fluid is present. Patient off pressors; GT/OGT no output; HIDA positive; IR drain placement cancelled by radiologist since US without evidence of infection. Therefore, Dr. Guadalupe believes the HIDA is false positive. Tolerating tube feeds; no abdominal pain/discomfort; LFT's increased, bili nl (s/p code with blood loss); +bowel function -No surgical intervention required at this time 2. Pneumonia: Recurrent; no fevers; reintubated; less secretion sputum cx: PSEUDOMONAS AERUGINOSA, K PNEUMO ESBL, NASRIN GLABRATA; appears comfortable -pulmonary toilet -abx per ID 3. Vent dependent respiratory failure: 2/2 aspiration PNA+ CHF;reintubated and extubated, coded 04/21 and 05/01; currently reintubated -as above 4. Septic shock: resolved -on abx -supportive 5. Uncontrolled Afib: s/p amiodarone drip, on oral amiodarone; episodes of Afib Now SR -medical optimization 6. Elevated troponin:NSTEMI; septic shock/demand ischemia -trend 7. Leukocytosis with lactic acidosis: 2/2 pneumonia vs. steroids vs.fungemia vs other (urine, repeat blood cultures negative);wbc improved -abx, antifungals -judicious fluid management -supportive measures 8. KEYONNA: likely 2/2 septic shock; s/p code; HD again today; good urine output; cr improving -judicious fluid management -avoid nephrotoxic agents 9. CHF: BNP elevated -judicious fluid management -medical optimization 10. Adrenal Insufficiency -solucortef 11. Hypomagnesemia: normalized 12. Hypothyroidism; tsh elevated -on synthroid 13. Macrocytic anemia: chronic vs. dilutional vs. acute bleed vs. b12/folate deficiency;h/h stable -monitor -Transfuse as needed 14. Transaminitis: likely 2/2 septic shock vs. cholecystitis;normalized -trend, monitor 15. Diarrhea: 2/2 abx vs. enteritis: resolved; tolerating tf -? probiotics 16. Thrombocytosis: 2/2 inflammatory vs. drug induced vs. other -monitor -bleeding precautions -supportive 17. Encephalopathy: 2/2 toxic metabolic vs. anoxic injury; CT: No acute intracranial hemorrhage or mass effect. Mild chronic microvascular disease and intracranial atherosclerosis; EEG shows no seizure activity -supportive 18. Bilateral upper extremity edema: likely 2/2 decreased movement vs. thrombosis; initial doppler negative, repeat doppler left arm (+) Thrombus -elevate extremities -supportive 19. Hypoalbuminemia: 2/2 malnutrition +/- inflammation; decreased; tolerating tf ; -nutrition optimization -as above 20 Hypernatremia: normalized -judicious fluid management 21. Hypocalcemia with hypoalbuminemia -optimize nutrition 22. Fungemia -antifungals 23. Hyperkalemia, now with hypokalemia: improving -optimize lytes 24. Oral lesions Patient seen and examined in collaboration with Dr. Justus Antonio Problems: Subjective 24 Hr Interval Summary Feeling ok. Comfortable on vent. HD again today. No c/o pain, metzger, sz dizziness , cough, n/v/d, fevers, chills. +bowel function Exam/Review of Systems Vital Signs Vitals Vital Signs Date Time Temp Pulse Resp B/P Pulse Ox O2 Delivery O2 Flow Rate FiO2 05/09/17 21:29 72 05/09/17 20:32 16 100 30 05/09/17 20:30 98.0 130/63 05/09/17 17:27 Bag Valve Mask Intake and Output 05/08/17 05/08/17 05/09/17 15:00 23:00 07:00 Intake Total 810 ml 1110 ml 375 ml Output Total 370 ml 255 ml 400 ml Balance 440 ml 855 ml -25 ml Exam Free Text/Dictation Constitutional: somnolent, appears comfortable Head: atraumatic, normocephalic Eyes: PERRL, nl lids, nl sclera ENMT: No mucosa pink and moist (pink and moist with healing perioral lesions) Neck: non-tender, supple, tracheostomy (min dried blood) Respiratory: diminished, comfortable on vent Cardiovascular: nl pulses, regular rate and rhythm, NSR, Gastrointestinal: min distended, GT tubes site no erythema, no drainage, non tenderness, bowel sounds x 4 quads Genitourinary - Female: nl external genitalia Musculoskeletal: nl extremities to inspection Extremities: normal pulses, bilateral upper/lower extremity edema (min improvement) Neurological: responsive Skin: nl turgor, No rash or lesions Lymph: nl lymph nodes Results Result Diagram: 05/09/17 1400 05/09/17 0603 ADDISON FREGOSO NP May 09, 2017 22:15
[2017-05-10] VITALS (24 sets, daily range): BP systolic 118–128; BP diastolic 56–70; PULSE 68–72; RESP 15–20
[2017-05-10] MEDS: METOCLOPRAMIDE 10 MG INJ IV SCH ×4 (00:06→17:47)
[2017-05-10] MEDS: INSULIN ASPART [NOVOLOG] 3 ML PEN SC SCH ×4 (00:14→17:52)
[2017-05-10] MEDS: LEVALBUTEROL (HFA) 15 GM INHALER INH SCH ×4 (01:48→20:03)
[2017-05-10] MEDS: HYDROCODONE/APAP (5/325) TAB GTB SCH ×4 (04:42→22:08)
[2017-05-10] MEDS: metroNIDAZOLE 500 MG TAB GTB SCH ×3 (05:21→22:08)
[2017-05-10] MEDS: PANTOPRAZOLE 40 MG INJ IV SCH ×2 (05:21→17:47)
[2017-05-10 06:07] LABS: ABNORMAL IP MESSAGE 1; BASOPHILS % 0.1 % (0.0-2.0); EOSINOPHILS % 0.1 % (0.0-7.0); HEMATOCRIT 22.9 % (37.0-47.0); HEMOGLOBIN 7.5 g/dl (12.0-16.0); LYMPHOCYTES # 0.6 10^3/ul (0.8-2.9); LYMPHOCYTES % 3.5 % (15.0-51.0); MEAN CORPUSCULAR HEMOGLOBIN 30.2 pg (29.0-33.0); MEAN CORPUSCULAR HGB CONC 32.8 g/dl (32.0-37.0); MEAN CORPUSCULAR VOLUME 92.3 fl (82.0-101.0); MEAN PLATELET VOLUME 13.5 fl (7.4-10.4); MONOCYTE # 0.6 10^3/ul (0.3-0.9); MONOCYTES % 3.5 % (0.0-11.0); NEUTROPHIL # 14.4 10^3/ul (1.6-7.5); PLATELET COUNT 148 10^3/UL (140-415); RED BLOOD COUNT 2.48 10^6/ul (4.20-5.40); RED CELL DISTRIBUTION WIDTH 19.6 % (11.5-14.5); WHITE BLOOD COUNT 15.8 10^3/ul (4.8-10.8)
[2017-05-10 06:13] LABS: NEUTROPHILS % 91.2 % (39.0-77.0); POSITIVE DIFF @See below
[2017-05-10] MEDS: LEVOTHYROXINE 75 MCG TAB GTB SCH (06:23)
[2017-05-10 06:31] LABS: CALCIUM 8.4 mg/dl (8.4-10.2); CREATININE 1.56 mg/dl (0.44-1.00); PHOSPHORUS 2.9 mg/dl (2.5-4.9); POTASSIUM 3.5 mmol/L (3.5-5.1)
[2017-05-10] MEDS: CHLORHEXIDINE GLUCONATE 15 ML UD CUP MT SCH ×2 (08:56→22:08)
[2017-05-10] MEDS: SPIRONOLACTONE 25 MG TAB NGT SCH (08:57)
[2017-05-10] MEDS: CITALOPRAM 20 MG TAB NGT SCH (08:57)
[2017-05-10] MEDS: VALACYCLOVIR 500 MG TAB GTB SCH (08:57)
[2017-05-10] MEDS: VITAMIN A & D 5 GM OINT PACKET TOP SCH ×3 (08:57→22:08)
[2017-05-10] MEDS: AMIODARONE 200 MG TAB GTB SCH ×2 (08:58→22:09)
[2017-05-10] MEDS: METOPROLOL 25 MG TAB GTB SCH ×4 (08:58→22:09)
[2017-05-10] MEDS: FUROSEMIDE 40 MG INJ IV SCH ×2 (08:59→22:08)
[2017-05-10] MEDS: HYDROCORTISONE 100 MG INJ IV SCH ×2 (08:59→22:07)
[2017-05-10] MEDS: COLISTIMETHATE (25 MG/ML INHAL SYG) NEB SCH ×2 (09:00→21:29)
[2017-05-10] MEDS ORDERED: METOLAZONE 5 MG TAB PO ONE (09:00)
[2017-05-10] MEDS ORDERED: POTASSIUM CHLORIDE 20 MEQ POWDER FOR ORAL SOLN NGT ONE (09:00)
--- NOTE | 2017-05-10 09:01 | PN ---
Date/Time of Note Date/Time of Note DATE: 05/10/17 TIME: 08:58 Assessment/Plan VTE Prophylaxis VTE Prophylaxis Intervention: other Lines/Catheters IV Catheter Type (from Nrs): BHARTI Urinary Cath still in place: Yes Reason Cath still needed: other (indicate) Assessment/Plan Chief Complaint/Hosp Course 1. Status post code arrest -Etiology secondary to sepsis, hypoxemic failure -Patient was coded 30 minutes with spontaneous return of circulation 2. Ventilator dependent respiratory failure status post trach -ABG chest x-ray reviewed -We will follow-up with pulmonary, 2. nonoliguric Ken[place]. With previously normal baseline creatinine. Etiology is likely secondary to septic KENRICK, ATN -Patient was initiated on dialysis due to significant volume overload and worsening renal failure Patient tolerated dialysis well We will hold dialysis Increased diuretic therapy Monitor renal function and electrolytes closely - 3. Hypokalemia We will replete with potassium chloride resume Aldactone 3. Sepsis status post shock Etiology secondary to aspiration pneumonia, fungemia Patient is on broad-spectrum antibiotics, antifungals, - Patient's blood cultures have been reviewed. - Continue current treatment plan Follow-up with infectious disease 4. Volume overload. Etiology likely secondary to sepsis capillary leak, diastolic heart failure. -Patient had significant volume removed with dialysis We will increase diuretic therapy Monitor closely 6. History of adrenal insufficiency. -Patient currently on stress steroids, -Appreciate endocrinology evaluation 7. Acute encephalopathy etiologies toxic metabolic, possible anoxic injury. Mental status is improving, patient following commands CT scan showed no acute finding Appreciate Dr. Ellis evaluation -Continue to monitor closely 8. Hypernatremia Resolved 9. Hypothyroidism continue Synthroid 10. Anemia with GI bleed Status post EGD with cauterization of fundal bleed H&H levels have been slowly trending down, continue to monitor transfuse as needed Continue PPI Appreciate GIs help with management 11. Mineral bone disorder will monitor calcium phosphorus levels 12. h/o tongue cancer with resection 13. History of diastolic heart failure/coronary disease -Continue medical management 14. Leukocytosis. -Etiology is likely secondary sepsis, steroids. -Monitor - Follow-up with infectious disease. 15. Hypomagnesemia. Continue to monitor and replete as needed 16. Left upper extremity DVT. -Hold aspirin heparin in setting of bleed 17. Dysphagia status post PEG Continue tube feeding 18. Arrhythmia Status post amiodarone drip Follow-up with cardio 19. ?cholecystitis -Patient's HIDA scan was positive - cholecystostomy drain was not placed due to insufficient fluid. -No plan for drain placement at this time. I discussed case with general surgery Appreciate surgery's evaluation. 20. 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 Ellis's evaluation Continue supportive care Disposition. Isbell evaluation has been placed. Problems: Subjective 24 Hr Interval Summary Free Text/Dictation Patient seen and examined Patient had hemodialysis yesterday tolerated well with approximately 4 L removed Spoke with the ENT Dr. Carpio yesterday who has evaluated patient 1 week ago I discussed the possibility of any trach exchange. Dr. Carpio will likely see the patient next 1-2 days No other events noted Exam/Review of Systems Vital Signs Vitals Vital Signs Date Time Temp Pulse Resp B/P Pulse Ox O2 Delivery O2 Flow Rate FiO2 05/10/17 08:30 68 05/10/17 07:35 17 100 30 05/10/17 07:05 98.2 118/56 05/09/17 23:34 Bag Valve Mask Intake and Output 05/09/17 05/09/17 05/10/17 15:00 23:00 07:00 Intake Total 300 ml 300 ml 750 ml Output Total 4000 ml 900 ml 700 ml Balance -3700 ml -600 ml 50 ml Exam HEENT: Head is normocephalic, NECK: Supple. HEART: Irregular LUNGS: Show diminished breath sounds at base. ABDOMEN: Soft, nontender to palpation without rebound or guarding. EXTREMITIES: Negative for clubbing, cyanosis. Positive anasarca DERMATOLOGIC: No rashes. MUSCULOSKELETAL: No joint effusions, NEUROLOGIC: No change in exam. Results Result Diagram: 05/10/1752805/10/17528 Results 24 hrs Laboratory Tests Test 05/09/17 12:51 05/09/17 14:00 05/09/17 18:32 05/10/17 00:03 Bedside Glucose 124 137 160 Hemoglobin 7.6 L Hematocrit 23.0 L Hepatitis B Surface Antigen Pending Hepatitis B Core Total Antibody Pending Hepatitis C Antibody Pending Test 05/10/17 05:29 05/10/17 06:20 White Blood Count 15.8 #H Red Blood Count 2.48 L Hemoglobin 7.5 L Hematocrit 22.9 L Mean Corpuscular Volume 92.3 Mean Corpuscular Hemoglobin 30.2 Mean Corpuscular Hemoglobin Concent 32.8 Red Cell Distribution Width 19.6 H Platelet Count 148 # Mean Platelet Volume 13.5 H Neutrophils % 91.2 H Lymphocytes % 3.5 L Monocytes % 3.5 Eosinophils % 0.1 Basophils % 0.1 Nucleated Red Blood Cells % 0.0 Neutrophils # 14.4 H Lymphocytes # 0.6 L Monocytes # 0.6 Eosinophils # 0.0 Basophils # 0.0 Nucleated Red Blood Cells # 0.0 Sodium Level 139 Potassium Level 3.5 Chloride Level 101 Carbon Dioxide Level 29 Anion Gap 13 Blood Urea Nitrogen 50 H Creatinine 1.56 H Glucose Level 144 # Calcium Level 8.4 Phosphorus Level 2.9 Magnesium Level 2.0 Bedside Glucose 171 Medications Medications Current Medications Aspirin (Aspirin) 325 mg DAILY NGT Last administered on 04/30/17 08:43; Admin Dose 325 MG; Start 04/12/17 at 09:00; Status Future Hold Metoprolol Tartrate (Lopressor) 5 mg Q4H PRN IV HR>110 Hold SBP<110 Last administered on 04/20/17 17:36; Admin Dose 5 MG; Start 04/11/17 at 13:30 Miscellaneous Information 1 ea NOTE XX ; Start 04/11/17 at 16:30 Glucose (Glutose) 15 gm Q15M PRN PO DECREASED GLUCOSE Last administered on 05/07 03:27; Admin Dose 15 GM; Start 04/11/17 at 16:30 Glucose (Glutose) 22.5 gm Q15M PRN PO DECREASED GLUCOSE; Start 04/11/17 at 16: 30 Dextrose (D50w Syringe) 25 ml Q15M PRN IV DECREASED GLUCOSE Last administered on 04/12/17 23:56; Admin Dose 25 ML; Start 04/11/17 at 16:30 Dextrose (D50w Syringe) 50 ml Q15M PRN IV DECREASED GLUCOSE; Start 04/11/17 at 16:30 Glucagon (Glucagen) 1 mg Q15M PRN IM DECREASED GLUCOSE; Start 04/11/17 at 16:30 Glucose (Glutose) 15 gm Q15M PRN BUCCAL DECREASED GLUCOSE; Start 04/11/17 at 16 :30 Metoclopramide HCl (Reglan) 10 mg Q6 IV Last administered on 05/10/17 05:21; Admin Dose 10 MG; Start 04/12/17 at 18:00 Insulin Aspart (Novolog Insulin Pen) NOVOLOG *MILD* ALGORI... Q6H SC Last administered on 05/10/17 06:27; Admin Dose 1 UNIT; Start 04/15/17 at 00:00 IV Flush (NS 10 ml) 10 ml PRN PRN IV FLUSH LINE; Start 04/15/17 at 13:00 Amiodarone HCl (Cordarone) 200 mg BID GTB Last administered on 05/09/17 21:33 ; Admin Dose 200 MG; Start 04/16/17 at 13:00 Heparin Sodium (Porcine) (Heparin (5000 Units/0.5 ml)) 5,000 unit BID SC Last administered on 04/30/17 21:03; Admin Dose 5,000 UNIT; Start 04/18/17 at 16:22; Status Future Hold Citalopram Hydrobromide (Celexa) 20 mg DAILY NGT Last administered on 12:19; Admin Dose 20 MG; Start 04/19/17 at 09:00 Hydralazine HCl 20 mg 20 mg Q6H PRN IV sbp ABOVE 160 Last administered on 12:23; Admin Dose 20 MG; Start 04/18/17 at 18:30 Caspofungin/ Sodium Chloride (Cancidas/NS) 250 ml @ 250 mls/hr Q24H IV Last administered on 05/09/17 12:45; Admin Dose 250 MLS/HR; Start 04/21/17 at 10:00 Chlorhexidine Gluconate (Peridex) 15 ml BID MT Last administered on 05/09/17 21:32; Admin Dose 15 ML; Start 04/22/17 at 21:00 Vitamin A/Vitamin D (Vitamin A & D Oint) 1 applic TID TOP Last administered on 05/09/17 21:43; Admin Dose 1 APPLIC; Start 04/22/17 at 21:00 Vitamin A/Vitamin D (Vitamin A & D Oint) 1 applic TID PRN TOP DRYNESS Last administered on 04/22/17 15:29; Admin Dose 1 APPLIC; Start 04/22/17 at 15:00 Acetaminophen/ Hydrocodone Bitart ([place] (5/325)) 1 tab Q6H GTB Last administered on 05/10/17 04:42; Admin Dose 1 TAB; Start 04/22/17 at 21:30 Spironolactone (Aldactone) 25 mg DAILY NGT Last administered on 05/09/17 12:19 ; Admin Dose 25 MG; Start 04/25/17 at 19:00; Status Future hold Diltiazem HCl (Cardizem Iv) 5 mg Q1H PRN IV HEART RATE GREATER THAN 120 Last administered on 04/29/17 06:17; Admin Dose 5 MG; Start 04/29/17 at 05:00 Metronidazole 500 mg 500 mg Q8 GTB Last administered on 05/10/17 05:21; Admin Dose 500 MG; Start 04/30/17 at 22:00 Sodium Chloride 1,000 ml @ 0 mls/hr Q0M IV Last administered on 05/01/17 03: 00; Admin Dose 1,000 MLS/HR; Start 05/01/17 at 03:00 Sodium Chloride (NS) 1,000 ml @ 0 mls/hr Q0M IV Last administered on 04:00; Admin Dose 1,000 MLS/HR; Start 05/01/17 at 03:30 Pantoprazole 40 mg 40 mg BID@06,18 IV Last administered on 05/10/17 05:21; Admin Dose 40 MG; Start 05/02/17 at 15:00 Diltiazem HCl (Cardizem-D5W 125 Mg/125 ml Drip) 125 ml @ 5 mls/hr TITRATE IV Last administered on 05/02/17 19:11; Admin Dose 5 MLS/HR; Start 05/02/17 at 19: 00 Hydrocortisone (Solu-Cortef) 100 mg BID IV Last administered on 05/09/17 21:32 ; Admin Dose 100 MG; Start 05/04/17 at 21:00 Valacyclovir HCl (Valtrex) 1,000 mg DAILY GTB Last administered on 05/09/17 12 :19; Admin Dose 1,000 MG; Start 05/06/17 at 09:00 Metoprolol Tartrate (Lopressor) 25 mg QID GTB Last administered on 05/09/17 21 :35; Admin Dose 25 MG; Start 05/07/17 at 09:00 Furosemide 40 mg 40 mg Q12 IV Last administered on 05/09/17 21:33; Admin Dose 40 MG; Start 05/08/17 at 09:00 Cefepime HCl (Maxipime 1gm/50 ml (Pmx)) 50 ml @ 100 mls/hr Q24H IVPB Last administered on 05/09/17 18:29; Admin Dose 100 MLS/HR; Start 05/08/17 at 18:00 NINA MACIEL DO May 10, 2017 09:01
--- NOTE | 2017-05-10 09:41 | PN ---
Date/Time of Note Date/Time of Note DATE: 05/10/17 TIME: 09:34 Assessment/Plan Lines/Catheters IV Catheter Type (from [facility]): BHARTI Latif in Place (from [facility]): Yes Assessment/Plan Chief Complaint/Hosp Course 1. Cholelithiasis ? cholecystitis: Ct abd: sludge and small stones in the gallbladder. No gallbladder wall thickening is noted with some pericholecystic fluid is present. Patient off pressors; GT/OGT no output; HIDA positive; IR drain placement cancelled by radiologist since US without evidence of infection. Therefore, Dr. Guadalupe believes the HIDA is false positive. Tolerating tube feeds; no abdominal pain/discomfort; LFT's increased, bili nl (s/p code with blood loss); +bowel function -No surgical intervention required at this time 2. Pneumonia: Recurrent; no fevers; reintubated; less secretion sputum cx: PSEUDOMONAS AERUGINOSA, K PNEUMO ESBL, NASRIN GLABRATA; appears comfortable -pulmonary toilet -abx per ID 3. Vent dependent respiratory failure: 2/2 aspiration PNA+ CHF;reintubated and extubated, coded 04/21 and 05/01; currently reintubated -as above 4. Septic shock: resolved -on abx -supportive 5. Uncontrolled Afib: s/p amiodarone drip, on oral amiodarone; episodes of Afib Now SR -medical optimization 6. Elevated troponin:NSTEMI; septic shock/demand ischemia -trend 7. Leukocytosis with lactic acidosis: 2/2 pneumonia vs. steroids vs.fungemia vs other (urine, repeat blood cultures negative);wbc improved -abx, antifungals -judicious fluid management -supportive measures 8. KEYONNA: likely 2/2 septic shock; s/p code; HD yesterday; good urine output; cr improving -judicious fluid management -avoid nephrotoxic agents 9. CHF: BNP elevated -judicious fluid management -medical optimization 10. Adrenal Insufficiency -solucortef 11. Hypomagnesemia: normalized 12. Hypothyroidism; tsh elevated -on synthroid 13. Macrocytic anemia: chronic vs. dilutional vs. acute bleed vs. b12/folate deficiency;h/h lower -monitor -Transfuse as needed 14. Transaminitis: likely 2/2 septic shock vs. cholecystitis;normalized -trend, monitor 15. Diarrhea: 2/2 abx vs. enteritis: resolved; tolerating tf 16. Thrombocytosis: 2/2 inflammatory vs. drug induced vs. other -monitor -bleeding precautions -supportive 17. Encephalopathy: 2/2 toxic metabolic vs. anoxic injury; CT: No acute intracranial hemorrhage or mass effect. Mild chronic microvascular disease and intracranial atherosclerosis; EEG shows no seizure activity -supportive 18. Bilateral upper extremity edema: likely 2/2 decreased movement vs. thrombosis; initial doppler negative, repeat doppler left arm (+) Thrombus -elevate extremities -supportive 19. Hypoalbuminemia: 2/2 malnutrition +/- inflammation; decreased; tolerating tf ; -nutrition optimization -as above 20 Hypernatremia: normalized -judicious fluid management 21. Hypocalcemia with hypoalbuminemia -optimize nutrition 22. Fungemia -antifungals 23. Hyperkalemia: normalized -optimize lytes 24. Oral lesions Patient seen and examined in collaboration with Dr. Justus Antonio Problems: Subjective 24 Hr Interval Summary Comfortable on vent. +bowel function. Tolerating tf. No abdominal pain/ discomfort, sz, metzger, dizziness, sob, congested cough, n/v/d, dysuria, fevers, chills. HD yesterday. some oral lesions bleeding. Exam/Review of Systems Vital Signs Vitals Vital Signs Date Time Temp Pulse Resp B/P Pulse Ox O2 Delivery O2 Flow Rate FiO2 05/10/17 08:30 68 05/10/17 07:35 17 100 30 05/10/17 07:05 98.2 118/56 05/09/17 23:34 Bag Valve Mask Intake and Output 05/09/17 05/09/17 05/10/17 15:00 23:00 07:00 Intake Total 300 ml 300 ml 750 ml Output Total 4000 ml 900 ml 700 ml Balance -3700 ml -600 ml 50 ml Exam Free Text/Dictation Constitutional: somnolent, appears comfortable Head: atraumatic, normocephalic Eyes: PERRL, nl lids, nl sclera ENMT: No mucosa pink and moist (pink and moist with healing perioral lesions/ dried blood) Neck: non-tender, supple, tracheostomy Respiratory: diminished, comfortable on vent Cardiovascular: nl pulses, regular rate and rhythm, NSR, Gastrointestinal: min distended, GT tubes site no erythema, no drainage, non tenderness, bowel sounds x 4 quads Genitourinary - Female: nl external genitalia Musculoskeletal: nl extremities to inspection Extremities: normal pulses, bilateral upper/lower extremity edema (min improvement) Neurological: responsive Skin: nl turgor, No rash or lesions Lymph: nl lymph nodes Results Result Diagram: 05/10/17 0529 05/10/17 0529 ADDISON FREGOSO NP May 10, 2017 09:41
[2017-05-10] MEDS: CASPOFUNGIN 50 MG in NS 250 ML IV SCH (10:09)
--- NOTE | 2017-05-10 10:09 | PN ---
Date/Time of Note Date/Time of Note DATE: 05/10/17 TIME: 10:08 Assessment/Plan VTE Prophylaxis VTE Prophylaxis Intervention: SCD's Lines/Catheters IV Catheter Type (from Nrs): BHARTI Urinary Cath still in place: Yes Reason Cath still needed: urinary retention Assessment/Plan Assessment/Plan 1. acute on chronic hypoxemic respiratory failure: 2. NSTEMI: due to demand ischemia. 3. CHF/ fluid overload: due to diastolic heart failure 4. moderate 5. Arrhythmia and P afib, frequent PVC: currently in NSR. 6. ANEMIA 7. pneumonia 9. Anasarca 10. s/p cardiopulm arrest due to resp failure 11. renal failure 12. coagulopathy Rec: off of ASA due to active bleeding and severe anemia and coagulopathy. resp care as per PULM Team. correct lytes prn. keep K > 4, Mg > 2 cont ICU care. CONT betablocker as tolerated. cardizem IV prn . thyroid supplement . tele monitoring HD/ ultrafiltration as per renal. transfuse prn Subjective 24 Hr Interval Summary Free Text/Dictation The patient with no change Exam/Review of Systems Vital Signs Vitals Vital Signs Date Time Temp Pulse Resp B/P Pulse Ox O2 Delivery O2 Flow Rate FiO2 05/10/17 09:05 73 16 99 30 05/10/17 07:05 98.2 118/56 05/09/17 23:34 Bag Valve Mask Intake and Output 05/09/17 05/09/17 05/10/17 15:00 23:00 07:00 Intake Total 300 ml 300 ml 750 ml Output Total 4000 ml 900 ml 700 ml Balance -3700 ml -600 ml 50 ml Results Result Diagram: 05/10/17 0529 05/10/17 0529 Results 24 hrs Laboratory Tests Test 05/09/17 12:51 05/09/17 14:00 05/09/17 18:32 05/10/17 00:03 Bedside Glucose 124 137 160 Hemoglobin 7.6 L Hematocrit 23.0 L Hepatitis B Surface Antigen Pending Hepatitis B Core Total Antibody Pending Hepatitis C Antibody Pending Test 05/10/17 05:29 05/10/17 06:20 White Blood Count 15.8 #H Red Blood Count 2.48 L Hemoglobin 7.5 L Hematocrit 22.9 L Mean Corpuscular Volume 92.3 Mean Corpuscular Hemoglobin 30.2 Mean Corpuscular Hemoglobin Concent 32.8 Red Cell Distribution Width 19.6 H Platelet Count 148 # Mean Platelet Volume 13.5 H Neutrophils % 91.2 H Lymphocytes % 3.5 L Monocytes % 3.5 Eosinophils % 0.1 Basophils % 0.1 Nucleated Red Blood Cells % 0.0 Neutrophils # 14.4 H Lymphocytes # 0.6 L Monocytes # 0.6 Eosinophils # 0.0 Basophils # 0.0 Nucleated Red Blood Cells # 0.0 Sodium Level 139 Potassium Level 3.5 Chloride Level 101 Carbon Dioxide Level 29 Anion Gap 13 Blood Urea Nitrogen 50 H Creatinine 1.56 H Glucose Level 144 # Calcium Level 8.4 Phosphorus Level 2.9 Magnesium Level 2.0 Bedside Glucose 171 Medications Medications Current Medications Aspirin (Aspirin) 325 mg DAILY NGT Last administered on 04/30/17 08:43; Admin Dose 325 MG; Start 04/12/17 at 09:00; Status Future Hold Metoprolol Tartrate (Lopressor) 5 mg Q4H PRN IV HR>110 Hold SBP<110 Last administered on 04/20/17 17:36; Admin Dose 5 MG; Start 04/11/17 at 13:30 Miscellaneous Information 1 ea NOTE XX ; Start 04/11/17 at 16:30 Glucose (Glutose) 15 gm Q15M PRN PO DECREASED GLUCOSE Last administered on 05/07 03:27; Admin Dose 15 GM; Start 04/11/17 at 16:30 Glucose (Glutose) 22.5 gm Q15M PRN PO DECREASED GLUCOSE; Start 04/11/17 at 16: 30 Dextrose (D50w Syringe) 25 ml Q15M PRN IV DECREASED GLUCOSE Last administered on 04/12/17 23:56; Admin Dose 25 ML; Start 04/11/17 at 16:30 Dextrose (D50w Syringe) 50 ml Q15M PRN IV DECREASED GLUCOSE; Start 04/11/17 at 16:30 Glucagon (Glucagen) 1 mg Q15M PRN IM DECREASED GLUCOSE; Start 04/11/17 at 16:30 Glucose (Glutose) 15 gm Q15M PRN BUCCAL DECREASED GLUCOSE; Start 04/11/17 at 16 :30 Metoclopramide HCl (Reglan) 10 mg Q6 IV Last administered on 05/10/17 05:21; Admin Dose 10 MG; Start 04/12/17 at 18:00 Insulin Aspart (Novolog Insulin Pen) NOVOLOG *MILD* ALGORI... Q6H SC Last administered on 05/10/17 06:27; Admin Dose 1 UNIT; Start 04/15/17 at 00:00 IV Flush (NS 10 ml) 10 ml PRN PRN IV FLUSH LINE; Start 04/15/17 at 13:00 Amiodarone HCl (Cordarone) 200 mg BID GTB Last administered on 05/10/17 08:58 ; Admin Dose 200 MG; Start 04/16/17 at 13:00 Heparin Sodium (Porcine) (Heparin (5000 Units/0.5 ml)) 5,000 unit BID SC Last administered on 04/30/17 21:03; Admin Dose 5,000 UNIT; Start 04/18/17 at 16:22; Status Future Hold Citalopram Hydrobromide (Celexa) 20 mg DAILY NGT Last administered on 08:57; Admin Dose 20 MG; Start 04/19/17 at 09:00 Hydralazine HCl 20 mg 20 mg Q6H PRN IV sbp ABOVE 160 Last administered on 12:23; Admin Dose 20 MG; Start 04/18/17 at 18:30 Caspofungin/ Sodium Chloride (Cancidas/NS) 250 ml @ 250 mls/hr Q24H IV Last administered on 05/09/17 12:45; Admin Dose 250 MLS/HR; Start 04/21/17 at 10:00 Chlorhexidine Gluconate (Peridex) 15 ml BID MT Last administered on 05/10/17 08:56; Admin Dose 15 ML; Start 04/22/17 at 21:00 Vitamin A/Vitamin D (Vitamin A & D Oint) 1 applic TID TOP Last administered on 05/10/17 08:57; Admin Dose 1 APPLIC; Start 04/22/17 at 21:00 Vitamin A/Vitamin D (Vitamin A & D Oint) 1 applic TID PRN TOP DRYNESS Last administered on 04/22/17 15:29; Admin Dose 1 APPLIC; Start 04/22/17 at 15:00 Acetaminophen/ Hydrocodone Bitart ([place] (5/325)) 1 tab Q6H GTB Last administered on 05/10/17 09:00; Admin Dose 1 TAB; Start 04/22/17 at 21:30 Spironolactone (Aldactone) 25 mg DAILY NGT Last administered on 05/10/17 08:57 ; Admin Dose 25 MG; Start 04/25/17 at 19:00; Status Future hold Diltiazem HCl (Cardizem Iv) 5 mg Q1H PRN IV HEART RATE GREATER THAN 120 Last administered on 04/29/17 06:17; Admin Dose 5 MG; Start 04/29/17 at 05:00 Metronidazole 500 mg 500 mg Q8 GTB Last administered on 05/10/17 05:21; Admin Dose 500 MG; Start 04/30/17 at 22:00 Sodium Chloride 1,000 ml @ 0 mls/hr Q0M IV Last administered on 05/01/17 03: 00; Admin Dose 1,000 MLS/HR; Start 05/01/17 at 03:00 Sodium Chloride (NS) 1,000 ml @ 0 mls/hr Q0M IV Last administered on 04:00; Admin Dose 1,000 MLS/HR; Start 05/01/17 at 03:30 Pantoprazole 40 mg 40 mg BID@06,18 IV Last administered on 05/10/17 05:21; Admin Dose 40 MG; Start 05/02/17 at 15:00 Diltiazem HCl (Cardizem-D5W 125 Mg/125 ml Drip) 125 ml @ 5 mls/hr TITRATE IV Last administered on 05/02/17 19:11; Admin Dose 5 MLS/HR; Start 05/02/17 at 19: 00 Hydrocortisone (Solu-Cortef) 100 mg BID IV Last administered on 05/10/17 08:59 ; Admin Dose 100 MG; Start 05/04/17 at 21:00 Valacyclovir HCl (Valtrex) 1,000 mg DAILY GTB Last administered on 05/10/17 08 :57; Admin Dose 1,000 MG; Start 05/06/17 at 09:00 Metoprolol Tartrate (Lopressor) 25 mg QID GTB Last administered on 05/10/17 08 :58; Admin Dose 25 MG; Start 05/07/17 at 09:00 Furosemide 40 mg 40 mg Q12 IV Last administered on 05/10/17 08:59; Admin Dose 40 MG; Start 05/08/17 at 09:00 Cefepime HCl (Maxipime 1gm/50 ml (Pmx)) 50 ml @ 100 mls/hr Q24H IVPB Last administered on 05/09/17 18:29; Admin Dose 100 MLS/HR; Start 05/08/17 at 18:00 JUDITH WORTHY MD May 10, 2017 10:09
--- NOTE | 2017-05-10 10:13 | CONS ---
Date/Time of Note Date/Time of Note DATE: 05/10/17 TIME: 10:11 Assessment/Plan Assessment/Plan Additional Assessment/Plan Ventilator setting; AC of 16, tidal volume 500, PEEP of 5, 30% FiO2. Assessment recommendations; 1. Patient admitted for severe sepsis and pneumonia currently on broad- spectrum antibiotic coverage. 2. Chronic respiratory failure, status post tracheostomy with history of decannulation and then redo tracheostomy 2. 3. Underlying COPD. 4. Remote history of glossal cancer. 5. Chronic dysphagia. 6. Anemia. 7. Renal insufficiency. 8. History of hypertension and cardiac arrhythmia. Continue current supportive care. Consultation Date/Type/Reason Admit Date/Time Apr 11, 2017 at 11:28 Initial Consult Date 05/01/17 Type of Consultation: Pulmonary/critical care Referring Provider: NINA MACIEL DO 24 HR Interval Summary Free Text/Dictation Patient condition remains stable. Remains ventilator dependent. Remains awake and alert. Has remained hemodynamically stable. General exam; elderly woman, on ventilator via tracheostomy, currently in no distress. Exam/Review of Systems Vital Signs Vitals Vital Signs Date Time Temp Pulse Resp B/P Pulse Ox O2 Delivery O2 Flow Rate FiO2 05/10/17 09:05 73 16 99 30 05/10/17 07:05 98.2 118/56 05/09/17 23:34 Bag Valve Mask Intake and Output 05/09/17 05/09/17 05/10/17 15:00 23:00 07:00 Intake Total 300 ml 300 ml 750 ml Output Total 4000 ml 900 ml 700 ml Balance -3700 ml -600 ml 50 ml Exam HEENT exam; supple neck, no JVD. No lymphadenopathy. Midline trachea. No thyromegaly. Tracheostomy in place. Patient has fair dentition. Chest exam; clear to auscultation. S1-S2 audible, no murmurs. Regular rhythm. Abdomen exam; soft, G-tube in place. No organomegaly. Bowel sounds audible. Next Extremity exam; no peripheral edema. Patient has a multiple ecchymosis involving all 4 extremities. FISHER TROT LINE exam; patient is awake and follows simple commands moves all 4 extremities. Still exhibiting profound generalized muscular weakness. Results Result Diagram: 05/10/17 0529 05/10/17 0529 Results 24 hrs Laboratory Tests Test 05/09/17 12:51 05/09/17 14:00 05/09/17 18:32 05/10/17 00:03 Bedside Glucose 124 137 160 Hemoglobin 7.6 L Hematocrit 23.0 L Hepatitis B Surface Antigen Pending Hepatitis B Core Total Antibody Pending Hepatitis C Antibody Pending Test 05/10/17 05:29 05/10/17 06:20 White Blood Count 15.8 #H Red Blood Count 2.48 L Hemoglobin 7.5 L Hematocrit 22.9 L Mean Corpuscular Volume 92.3 Mean Corpuscular Hemoglobin 30.2 Mean Corpuscular Hemoglobin Concent 32.8 Red Cell Distribution Width 19.6 H Platelet Count 148 # Mean Platelet Volume 13.5 H Neutrophils % 91.2 H Lymphocytes % 3.5 L Monocytes % 3.5 Eosinophils % 0.1 Basophils % 0.1 Nucleated Red Blood Cells % 0.0 Neutrophils # 14.4 H Lymphocytes # 0.6 L Monocytes # 0.6 Eosinophils # 0.0 Basophils # 0.0 Nucleated Red Blood Cells # 0.0 Sodium Level 139 Potassium Level 3.5 Chloride Level 101 Carbon Dioxide Level 29 Anion Gap 13 Blood Urea Nitrogen 50 H Creatinine 1.56 H Glucose Level 144 # Calcium Level 8.4 Phosphorus Level 2.9 Magnesium Level 2.0 Bedside Glucose 171 Medications Medications Current Medications Aspirin (Aspirin) 325 mg DAILY NGT Last administered on 04/30/17 08:43; Admin Dose 325 MG; Start 04/12/17 at 09:00; Status Future Hold Metoprolol Tartrate (Lopressor) 5 mg Q4H PRN IV HR>110 Hold SBP<110 Last administered on 04/20/17 17:36; Admin Dose 5 MG; Start 04/11/17 at 13:30 Miscellaneous Information 1 ea NOTE XX ; Start 04/11/17 at 16:30 Glucose (Glutose) 15 gm Q15M PRN PO DECREASED GLUCOSE Last administered on 05/07 03:27; Admin Dose 15 GM; Start 04/11/17 at 16:30 Glucose (Glutose) 22.5 gm Q15M PRN PO DECREASED GLUCOSE; Start 04/11/17 at 16: 30 Dextrose (D50w Syringe) 25 ml Q15M PRN IV DECREASED GLUCOSE Last administered on 04/12/17 23:56; Admin Dose 25 ML; Start 04/11/17 at 16:30 Dextrose (D50w Syringe) 50 ml Q15M PRN IV DECREASED GLUCOSE; Start 04/11/17 at 16:30 Glucagon (Glucagen) 1 mg Q15M PRN IM DECREASED GLUCOSE; Start 04/11/17 at 16:30 Glucose (Glutose) 15 gm Q15M PRN BUCCAL DECREASED GLUCOSE; Start 04/11/17 at 16 :30 Metoclopramide HCl (Reglan) 10 mg Q6 IV Last administered on 05/10/17 05:21; Admin Dose 10 MG; Start 04/12/17 at 18:00 Insulin Aspart (Novolog Insulin Pen) NOVOLOG *MILD* ALGORI... Q6H SC Last administered on 05/10/17 06:27; Admin Dose 1 UNIT; Start 04/15/17 at 00:00 IV Flush (NS 10 ml) 10 ml PRN PRN IV FLUSH LINE; Start 04/15/17 at 13:00 Amiodarone HCl (Cordarone) 200 mg BID GTB Last administered on 05/10/17 08:58 ; Admin Dose 200 MG; Start 04/16/17 at 13:00 Heparin Sodium (Porcine) (Heparin (5000 Units/0.5 ml)) 5,000 unit BID SC Last administered on 04/30/17 21:03; Admin Dose 5,000 UNIT; Start 04/18/17 at 16:22; Status Future Hold Citalopram Hydrobromide (Celexa) 20 mg DAILY NGT Last administered on 08:57; Admin Dose 20 MG; Start 04/19/17 at 09:00 Hydralazine HCl 20 mg 20 mg Q6H PRN IV sbp ABOVE 160 Last administered on 12:23; Admin Dose 20 MG; Start 04/18/17 at 18:30 Caspofungin/ Sodium Chloride (Cancidas/NS) 250 ml @ 250 mls/hr Q24H IV Last administered on 05/10/17 10:09; Admin Dose 250 MLS/HR; Start 04/21/17 at 10:00 Chlorhexidine Gluconate (Peridex) 15 ml BID MT Last administered on 05/10/17 08:56; Admin Dose 15 ML; Start 04/22/17 at 21:00 Vitamin A/Vitamin D (Vitamin A & D Oint) 1 applic TID TOP Last administered on 05/10/17 08:57; Admin Dose 1 APPLIC; Start 04/22/17 at 21:00 Vitamin A/Vitamin D (Vitamin A & D Oint) 1 applic TID PRN TOP DRYNESS Last administered on 04/22/17 15:29; Admin Dose 1 APPLIC; Start 04/22/17 at 15:00 Acetaminophen/ Hydrocodone Bitart ([place] (5/325)) 1 tab Q6H GTB Last administered on 05/10/17 09:00; Admin Dose 1 TAB; Start 04/22/17 at 21:30 Spironolactone (Aldactone) 25 mg DAILY NGT Last administered on 05/10/17 08:57 ; Admin Dose 25 MG; Start 04/25/17 at 19:00; Status Future hold Diltiazem HCl (Cardizem Iv) 5 mg Q1H PRN IV HEART RATE GREATER THAN 120 Last administered on 04/29/17 06:17; Admin Dose 5 MG; Start 04/29/17 at 05:00 Metronidazole 500 mg 500 mg Q8 GTB Last administered on 05/10/17 05:21; Admin Dose 500 MG; Start 04/30/17 at 22:00 Sodium Chloride 1,000 ml @ 0 mls/hr Q0M IV Last administered on 05/01/17 03: 00; Admin Dose 1,000 MLS/HR; Start 05/01/17 at 03:00 Sodium Chloride (NS) 1,000 ml @ 0 mls/hr Q0M IV Last administered on 04:00; Admin Dose 1,000 MLS/HR; Start 05/01/17 at 03:30 Pantoprazole 40 mg 40 mg BID@06,18 IV Last administered on 05/10/17 05:21; Admin Dose 40 MG; Start 05/02/17 at 15:00 Diltiazem HCl (Cardizem-D5W 125 Mg/125 ml Drip) 125 ml @ 5 mls/hr TITRATE IV Last administered on 05/02/17 19:11; Admin Dose 5 MLS/HR; Start 05/02/17 at 19: 00 Hydrocortisone (Solu-Cortef) 100 mg BID IV Last administered on 05/10/17 08:59 ; Admin Dose 100 MG; Start 05/04/17 at 21:00 Valacyclovir HCl (Valtrex) 1,000 mg DAILY GTB Last administered on 05/10/17 08 :57; Admin Dose 1,000 MG; Start 05/06/17 at 09:00 Metoprolol Tartrate (Lopressor) 25 mg QID GTB Last administered on 05/10/17 08 :58; Admin Dose 25 MG; Start 05/07/17 at 09:00 Furosemide 40 mg 40 mg Q12 IV Last administered on 05/10/17 08:59; Admin Dose 40 MG; Start 05/08/17 at 09:00 Cefepime HCl (Maxipime 1gm/50 ml (Pmx)) 50 ml @ 100 mls/hr Q24H IVPB Last administered on 05/09/17 18:29; Admin Dose 100 MLS/HR; Start 05/08/17 at 18:00 EMILIANO HICKS May 10, 2017 10:13
--- NOTE | 2017-05-10 10:44 | CONS ---
Date/Time of Note Date/Time of Note DATE: 05/10/17 TIME: 10:42 Assessment/Plan Assessment/Plan Additional Assessment/Plan Patient's and remains hopeful that she will continue to improve. She continues to remain confused, primarily delirious per patient's . He is communicative with his healthcare team but remained steadfast that he wants to do everything for his in the event that she has a catastrophic change in her medical condition. Consultation Date/Type/Reason Admit Date/Time Apr 11, 2017 at 11:28 Initial Consult Date 05/01/17 Type of Consultation: Palliative care Referring Provider: NINA MACIEL DO Exam/Review of Systems Vital Signs Vitals Vital Signs Date Time Temp Pulse Resp B/P Pulse Ox O2 Delivery O2 Flow Rate FiO2 05/10/17 09:05 73 16 99 30 05/10/17 07:05 98.2 118/56 05/09/17 23:34 Bag Valve Mask Intake and Output 05/09/17 05/09/17 05/10/17 15:00 23:00 07:00 Intake Total 300 ml 300 ml 750 ml Output Total 4000 ml 900 ml 700 ml Balance -3700 ml -600 ml 50 ml Exam Constitutional: non-verbal (Delirium) Head: atraumatic, normocephalic Eyes: EOMI, PERRL, nl conjunctiva, nl lids, nl sclera Neck: non-tender, supple Neurological: confused Results Result Diagram: 05/10/17 0529 05/10/17 0529 Results 24 hrs Laboratory Tests Test 05/09/17 12:51 05/09/17 14:00 05/09/17 14:22 05/09/17 18:32 Bedside Glucose 124 137 Hemoglobin 7.6 L Hematocrit 23.0 L Hepatitis B Surface Antigen Pending Hepatitis B Core Total Antibody Pending Hepatitis C Antibody Pending Hepatitis A IgM Antibody NON-REACTIVE Test 05/10/17 00:03 05/10/17 05:29 05/10/17 06:20 Bedside Glucose 160 171 White Blood Count 15.8 #H Red Blood Count 2.48 L Hemoglobin 7.5 L Hematocrit 22.9 L Mean Corpuscular Volume 92.3 Mean Corpuscular Hemoglobin 30.2 Mean Corpuscular Hemoglobin Concent 32.8 Red Cell Distribution Width 19.6 H Platelet Count 148 # Mean Platelet Volume 13.5 H Neutrophils % 91.2 H Lymphocytes % 3.5 L Monocytes % 3.5 Eosinophils % 0.1 Basophils % 0.1 Nucleated Red Blood Cells % 0.0 Neutrophils # 14.4 H Lymphocytes # 0.6 L Monocytes # 0.6 Eosinophils # 0.0 Basophils # 0.0 Nucleated Red Blood Cells # 0.0 Sodium Level 139 Potassium Level 3.5 Chloride Level 101 Carbon Dioxide Level 29 Anion Gap 13 Blood Urea Nitrogen 50 H Creatinine 1.56 H Glucose Level 144 # Calcium Level 8.4 Phosphorus Level 2.9 Magnesium Level 2.0 Medications Medications Current Medications Aspirin (Aspirin) 325 mg DAILY NGT Last administered on 04/30/17 08:43; Admin Dose 325 MG; Start 04/12/17 at 09:00; Status Future Hold Metoprolol Tartrate (Lopressor) 5 mg Q4H PRN IV HR>110 Hold SBP<110 Last administered on 04/20/17 17:36; Admin Dose 5 MG; Start 04/11/17 at 13:30 Miscellaneous Information 1 ea NOTE XX ; Start 04/11/17 at 16:30 Glucose (Glutose) 15 gm Q15M PRN PO DECREASED GLUCOSE Last administered on 05/07 03:27; Admin Dose 15 GM; Start 04/11/17 at 16:30 Glucose (Glutose) 22.5 gm Q15M PRN PO DECREASED GLUCOSE; Start 04/11/17 at 16: 30 Dextrose (D50w Syringe) 25 ml Q15M PRN IV DECREASED GLUCOSE Last administered on 04/12/17 23:56; Admin Dose 25 ML; Start 04/11/17 at 16:30 Dextrose (D50w Syringe) 50 ml Q15M PRN IV DECREASED GLUCOSE; Start 04/11/17 at 16:30 Glucagon (Glucagen) 1 mg Q15M PRN IM DECREASED GLUCOSE; Start 04/11/17 at 16:30 Glucose (Glutose) 15 gm Q15M PRN BUCCAL DECREASED GLUCOSE; Start 04/11/17 at 16 :30 Metoclopramide HCl (Reglan) 10 mg Q6 IV Last administered on 05/10/17 05:21; Admin Dose 10 MG; Start 04/12/17 at 18:00 Insulin Aspart (Novolog Insulin Pen) NOVOLOG *MILD* ALGORI... Q6H SC Last administered on 05/10/17 06:27; Admin Dose 1 UNIT; Start 04/15/17 at 00:00 IV Flush (NS 10 ml) 10 ml PRN PRN IV FLUSH LINE; Start 04/15/17 at 13:00 Amiodarone HCl (Cordarone) 200 mg BID GTB Last administered on 05/10/17 08:58 ; Admin Dose 200 MG; Start 04/16/17 at 13:00 Heparin Sodium (Porcine) (Heparin (5000 Units/0.5 ml)) 5,000 unit BID SC Last administered on 04/30/17 21:03; Admin Dose 5,000 UNIT; Start 04/18/17 at 16:22; Status Future Hold Citalopram Hydrobromide (Celexa) 20 mg DAILY NGT Last administered on 08:57; Admin Dose 20 MG; Start 04/19/17 at 09:00 Hydralazine HCl 20 mg 20 mg Q6H PRN IV sbp ABOVE 160 Last administered on 12:23; Admin Dose 20 MG; Start 04/18/17 at 18:30 Caspofungin/ Sodium Chloride (Cancidas/NS) 250 ml @ 250 mls/hr Q24H IV Last administered on 05/10/17 10:09; Admin Dose 250 MLS/HR; Start 04/21/17 at 10:00 Chlorhexidine Gluconate (Peridex) 15 ml BID MT Last administered on 05/10/17 08:56; Admin Dose 15 ML; Start 04/22/17 at 21:00 Vitamin A/Vitamin D (Vitamin A & D Oint) 1 applic TID TOP Last administered on 05/10/17 08:57; Admin Dose 1 APPLIC; Start 04/22/17 at 21:00 Vitamin A/Vitamin D (Vitamin A & D Oint) 1 applic TID PRN TOP DRYNESS Last administered on 04/22/17 15:29; Admin Dose 1 APPLIC; Start 04/22/17 at 15:00 Acetaminophen/ Hydrocodone Bitart ([place] (5/325)) 1 tab Q6H GTB Last administered on 05/10/17 09:00; Admin Dose 1 TAB; Start 04/22/17 at 21:30 Spironolactone (Aldactone) 25 mg DAILY NGT Last administered on 05/10/17 08:57 ; Admin Dose 25 MG; Start 04/25/17 at 19:00; Status Future hold Diltiazem HCl (Cardizem Iv) 5 mg Q1H PRN IV HEART RATE GREATER THAN 120 Last administered on 04/29/17 06:17; Admin Dose 5 MG; Start 04/29/17 at 05:00 Metronidazole 500 mg 500 mg Q8 GTB Last administered on 05/10/17 05:21; Admin Dose 500 MG; Start 04/30/17 at 22:00 Sodium Chloride 1,000 ml @ 0 mls/hr Q0M IV Last administered on 05/01/17 03: 00; Admin Dose 1,000 MLS/HR; Start 05/01/17 at 03:00 Sodium Chloride (NS) 1,000 ml @ 0 mls/hr Q0M IV Last administered on 04:00; Admin Dose 1,000 MLS/HR; Start 05/01/17 at 03:30 Pantoprazole 40 mg 40 mg BID@06,18 IV Last administered on 05/10/17 05:21; Admin Dose 40 MG; Start 05/02/17 at 15:00 Diltiazem HCl (Cardizem-D5W 125 Mg/125 ml Drip) 125 ml @ 5 mls/hr TITRATE IV Last administered on 05/02/17 19:11; Admin Dose 5 MLS/HR; Start 05/02/17 at 19: 00 Hydrocortisone (Solu-Cortef) 100 mg BID IV Last administered on 05/10/17 08:59 ; Admin Dose 100 MG; Start 05/04/17 at 21:00 Valacyclovir HCl (Valtrex) 1,000 mg DAILY GTB Last administered on 05/10/17 08 :57; Admin Dose 1,000 MG; Start 05/06/17 at 09:00 Metoprolol Tartrate (Lopressor) 25 mg QID GTB Last administered on 05/10/17 08 :58; Admin Dose 25 MG; Start 05/07/17 at 09:00 Furosemide 40 mg 40 mg Q12 IV Last administered on 05/10/17 08:59; Admin Dose 40 MG; Start 05/08/17 at 09:00 Cefepime HCl (Maxipime 1gm/50 ml (Pmx)) 50 ml @ 100 mls/hr Q24H IVPB Last administered on 05/09/17t 18:29; Admin Dose 100 MLS/HR; Start 05/08/17 at 18:00 YVONNE ADAMS May 10, 2017 10:44
--- NOTE | 2017-05-10 10:46 | CONS ---
Date/Time of Note Date/Time of Note DATE: 05/10/17 TIME: 10:44 Assessment/Plan Assessment/Plan Additional Assessment/Plan Posterior no for visit May 08, she is doing better and hopefully we will transfer to telemetry within the next 2 days her has been is always at her bedside. There is been no change in overall clinical cognitive condition, she remains delirious. Consultation Date/Type/Reason Admit Date/Time Apr 11, 2017 at 11:28 Initial Consult Date 05/01/17 Type of Consultation: Palliative care Referring Provider: NINA MACIEL DO Exam/Review of Systems Vital Signs Vitals Vital Signs Date Time Temp Pulse Resp B/P Pulse Ox O2 Delivery O2 Flow Rate FiO2 05/10/17 09:05 73 16 99 30 05/10/17 07:05 98.2 118/56 05/09/17 23:34 Bag Valve Mask Intake and Output 05/09/17 05/09/17 05/10/17 15:00 23:00 07:00 Intake Total 300 ml 300 ml 750 ml Output Total 4000 ml 900 ml 700 ml Balance -3700 ml -600 ml 50 ml Exam Psych: confusion Head: atraumatic, normocephalic Respiratory: congested cough, crackles/rales Neurological: confused Results Result Diagram: 05/10/17 0529 05/10/17 0529 Results 24 hrs Laboratory Tests Test 05/09/17 12:51 05/09/17 14:00 05/09/17 14:22 05/09/17 18:32 Bedside Glucose 124 137 Hemoglobin 7.6 L Hematocrit 23.0 L Hepatitis B Surface Antigen Pending Hepatitis B Core Total Antibody Pending Hepatitis C Antibody Pending Hepatitis A IgM Antibody NON-REACTIVE Test 05/10/17 00:03 05/10/17 05:29 05/10/17 06:20 Bedside Glucose 160 171 White Blood Count 15.8 #H Red Blood Count 2.48 L Hemoglobin 7.5 L Hematocrit 22.9 L Mean Corpuscular Volume 92.3 Mean Corpuscular Hemoglobin 30.2 Mean Corpuscular Hemoglobin Concent 32.8 Red Cell Distribution Width 19.6 H Platelet Count 148 # Mean Platelet Volume 13.5 H Neutrophils % 91.2 H Lymphocytes % 3.5 L Monocytes % 3.5 Eosinophils % 0.1 Basophils % 0.1 Nucleated Red Blood Cells % 0.0 Neutrophils # 14.4 H Lymphocytes # 0.6 L Monocytes # 0.6 Eosinophils # 0.0 Basophils # 0.0 Nucleated Red Blood Cells # 0.0 Sodium Level 139 Potassium Level 3.5 Chloride Level 101 Carbon Dioxide Level 29 Anion Gap 13 Blood Urea Nitrogen 50 H Creatinine 1.56 H Glucose Level 144 # Calcium Level 8.4 Phosphorus Level 2.9 Magnesium Level 2.0 Medications Medications Current Medications Aspirin (Aspirin) 325 mg DAILY NGT Last administered on 04/30/17 08:43; Admin Dose 325 MG; Start 04/12/17 at 09:00; Status Future Hold Metoprolol Tartrate (Lopressor) 5 mg Q4H PRN IV HR>110 Hold SBP<110 Last administered on 04/20/17 17:36; Admin Dose 5 MG; Start 04/11/17 at 13:30 Miscellaneous Information 1 ea NOTE XX ; Start 04/11/17 at 16:30 Glucose (Glutose) 15 gm Q15M PRN PO DECREASED GLUCOSE Last administered on 05/07 03:27; Admin Dose 15 GM; Start 04/11/17 at 16:30 Glucose (Glutose) 22.5 gm Q15M PRN PO DECREASED GLUCOSE; Start 04/11/17 at 16: 30 Dextrose (D50w Syringe) 25 ml Q15M PRN IV DECREASED GLUCOSE Last administered on 04/12/17 23:56; Admin Dose 25 ML; Start 04/11/17 at 16:30 Dextrose (D50w Syringe) 50 ml Q15M PRN IV DECREASED GLUCOSE; Start 04/11/17 at 16:30 Glucagon (Glucagen) 1 mg Q15M PRN IM DECREASED GLUCOSE; Start 04/11/17 at 16:30 Glucose (Glutose) 15 gm Q15M PRN BUCCAL DECREASED GLUCOSE; Start 04/11/17 at 16 :30 Metoclopramide HCl (Reglan) 10 mg Q6 IV Last administered on 05/10/17 05:21; Admin Dose 10 MG; Start 04/12/17 at 18:00 Insulin Aspart (Novolog Insulin Pen) NOVOLOG *MILD* ALGORI... Q6H SC Last administered on 05/10/17 06:27; Admin Dose 1 UNIT; Start 04/15/17 at 00:00 IV Flush (NS 10 ml) 10 ml PRN PRN IV FLUSH LINE; Start 04/15/17 at 13:00 Amiodarone HCl (Cordarone) 200 mg BID GTB Last administered on 05/10/17 08:58 ; Admin Dose 200 MG; Start 04/16/17 at 13:00 Heparin Sodium (Porcine) (Heparin (5000 Units/0.5 ml)) 5,000 unit BID SC Last administered on 04/30/17 21:03; Admin Dose 5,000 UNIT; Start 04/18/17 at 16:22; Status Future Hold Citalopram Hydrobromide (Celexa) 20 mg DAILY NGT Last administered on 08:57; Admin Dose 20 MG; Start 04/19/17 at 09:00 Hydralazine HCl 20 mg 20 mg Q6H PRN IV sbp ABOVE 160 Last administered on 12:23; Admin Dose 20 MG; Start 04/18/17 at 18:30 Caspofungin/ Sodium Chloride (Cancidas/NS) 250 ml @ 250 mls/hr Q24H IV Last administered on 05/10/17 10:09; Admin Dose 250 MLS/HR; Start 04/21/17 at 10:00 Chlorhexidine Gluconate (Peridex) 15 ml BID MT Last administered on 05/10/17 08:56; Admin Dose 15 ML; Start 04/22/17 at 21:00 Vitamin A/Vitamin D (Vitamin A & D Oint) 1 applic TID TOP Last administered on 05/10/17 08:57; Admin Dose 1 APPLIC; Start 04/22/17 at 21:00 Vitamin A/Vitamin D (Vitamin A & D Oint) 1 applic TID PRN TOP DRYNESS Last administered on 04/22/17 15:29; Admin Dose 1 APPLIC; Start 04/22/17 at 15:00 Acetaminophen/ Hydrocodone Bitart ([place] (5/325)) 1 tab Q6H GTB Last administered on 05/10/17 09:00; Admin Dose 1 TAB; Start 04/22/17 at 21:30 Spironolactone (Aldactone) 25 mg DAILY NGT Last administered on 05/10/17 08:57 ; Admin Dose 25 MG; Start 04/25/17 at 19:00; Status Future hold Diltiazem HCl (Cardizem Iv) 5 mg Q1H PRN IV HEART RATE GREATER THAN 120 Last administered on 04/29/17 06:17; Admin Dose 5 MG; Start 04/29/17 at 05:00 Metronidazole 500 mg 500 mg Q8 GTB Last administered on 05/10/17 05:21; Admin Dose 500 MG; Start 04/30/17 at 22:00 Sodium Chloride 1,000 ml @ 0 mls/hr Q0M IV Last administered on 05/01/17 03: 00; Admin Dose 1,000 MLS/HR; Start 05/01/17 at 03:00 Sodium Chloride (NS) 1,000 ml @ 0 mls/hr Q0M IV Last administered on 04:00; Admin Dose 1,000 MLS/HR; Start 05/01/17 at 03:30 Pantoprazole 40 mg 40 mg BID@06,18 IV Last administered on 05/10/17 05:21; Admin Dose 40 MG; Start 05/02/17 at 15:00 Diltiazem HCl (Cardizem-D5W 125 Mg/125 ml Drip) 125 ml @ 5 mls/hr TITRATE IV Last administered on 05/02/17 19:11; Admin Dose 5 MLS/HR; Start 05/02/17 at 19: 00 Hydrocortisone (Solu-Cortef) 100 mg BID IV Last administered on 05/10/17 08:59 ; Admin Dose 100 MG; Start 05/04/17 at 21:00 Valacyclovir HCl (Valtrex) 1,000 mg DAILY GTB Last administered on 05/10/17 08 :57; Admin Dose 1,000 MG; Start 05/06/17 at 09:00 Metoprolol Tartrate (Lopressor) 25 mg QID GTB Last administered on 05/10/17 08 :58; Admin Dose 25 MG; Start 05/07/17 at 09:00 Furosemide 40 mg 40 mg Q12 IV Last administered on 05/10/17 08:59; Admin Dose 40 MG; Start 05/08/17 at 09:00 Cefepime HCl (Maxipime 1gm/50 ml (Pmx)) 50 ml @ 100 mls/hr Q24H IVPB Last administered on 05/09/17 18:29; Admin Dose 100 MLS/HR; Start 05/08/17 at 18:00 YVONNE ADAMS May 10, 2017 10:46
--- NOTE | 2017-05-10 12:29 | CONS ---
Date/Time of Note Date/Time of Note DATE: 05/10/17 TIME: 12:27 Assessment/Plan Assessment/Plan Chief Complaint/Hosp Course Patient is a 66 year old female with a history of diabetes mellitus hypertension chronic vent dependency, history of tongue cancer status post resection has a G-tube. GI consult was called in for GI bleeding anemia requiring blood transfusion. Her other problems include aspiration pneumonia, atrial fibrillation well controlled. Patient also had a sepsis and fungemia successfully treated. Her G-tube aspirate shows burgundy colored fluid. Patient is off all the pressor support. She is on a steroid for adrenal insufficiency Problems: Additional Assessment/Plan Additional Assessment/Plan #1 GI bleeding manifested in the form of hematemesis and large burgundy color aspirate through G-tube, successful hemostasis achieved. No further bleeding 2. Vent dependent respiratory failure 3. Atrial fibrillation 4. Diabetes mellitus 5. Hypertension 6. Status post septic shock 7. Anemia, no active bleeding, further drop in hematocrit may be due to chronic disease 8. Prerenal azotemia, patient is on dialysis now 9. Status post cardiac arrest in the past 10. Leukocytosis 11. Encephalopathy Plan Transfuse 2 units of packed cell RBC bring hemoglobin greater than 7.5 Continue with PPI Refrain from all kind of blood thinner is concerned about aspiration and was thinking about jejunostomy tube. Consultation Date/Type/Reason Admit Date/Time Apr 11, 2017 at 11:28 Initial Consult Date 05/01/17 Type of Consultation: Palliative care Referring Provider: NINA MACIEL DO 24 HR Interval Summary Free Text/Dictation Swollen lips Exam/Review of Systems Vital Signs Vitals Vital Signs Date Time Temp Pulse Resp B/P Pulse Ox O2 Delivery O2 Flow Rate FiO2 05/10/17 11:12 98.6 73 20 126/66 100 05/10/17 11:05 30 05/09/17 23:34 Bag Valve Mask Intake and Output 05/09/17 05/09/17 05/10/17 15:00 23:00 07:00 Intake Total 300 ml 300 ml 750 ml Output Total 4000 ml 900 ml 700 ml Balance -3700 ml -600 ml 50 ml Exam Respiratory: other (. Patient is on vent) Cardiovascular: nl pulses, regular rate and rhythm Gastrointestinal: other (Status post G tube) Extremities: edema Neurological: confused Results Result Diagram: 05/10/17 0529 05/10/17 0529 Results 24 hrs Laboratory Tests Test 05/09/17 12:51 05/09/17 14:00 05/09/17 14:22 05/09/17 18:32 Bedside Glucose 124 137 Hemoglobin 7.6 L Hematocrit 23.0 L Hepatitis B Surface Antigen Pending Hepatitis B Core Total Antibody Pending Hepatitis C Antibody Pending Hepatitis A IgM Antibody NON-REACTIVE Test 05/10/17 00:03 05/10/17 05:29 05/10/17 06:20 05/10/17 12:20 Bedside Glucose 160 171 156 White Blood Count 15.8 #H Red Blood Count 2.48 L Hemoglobin 7.5 L Hematocrit 22.9 L Mean Corpuscular Volume 92.3 Mean Corpuscular Hemoglobin 30.2 Mean Corpuscular Hemoglobin Concent 32.8 Red Cell Distribution Width 19.6 H Platelet Count 148 # Mean Platelet Volume 13.5 H Neutrophils % 91.2 H Lymphocytes % 3.5 L Monocytes % 3.5 Eosinophils % 0.1 Basophils % 0.1 Nucleated Red Blood Cells % 0.0 Neutrophils # 14.4 H Lymphocytes # 0.6 L Monocytes # 0.6 Eosinophils # 0.0 Basophils # 0.0 Nucleated Red Blood Cells # 0.0 Sodium Level 139 Potassium Level 3.5 Chloride Level 101 Carbon Dioxide Level 29 Anion Gap 13 Blood Urea Nitrogen 50 H Creatinine 1.56 H Glucose Level 144 # Calcium Level 8.4 Phosphorus Level 2.9 Magnesium Level 2.0 Medications Medications Current Medications Aspirin (Aspirin) 325 mg DAILY NGT Last administered on 04/30/17 08:43; Admin Dose 325 MG; Start 04/12/17 at 09:00; Status Future Hold Metoprolol Tartrate (Lopressor) 5 mg Q4H PRN IV HR>110 Hold SBP<110 Last administered on 04/20/17 17:36; Admin Dose 5 MG; Start 04/11/17 at 13:30 Miscellaneous Information 1 ea NOTE XX ; Start 04/11/17 at 16:30 Glucose (Glutose) 15 gm Q15M PRN PO DECREASED GLUCOSE Last administered on 05/07 03:27; Admin Dose 15 GM; Start 04/11/17 at 16:30 Glucose (Glutose) 22.5 gm Q15M PRN PO DECREASED GLUCOSE; Start 04/11/17 at 16: 30 Dextrose (D50w Syringe) 25 ml Q15M PRN IV DECREASED GLUCOSE Last administered on 04/12/17 23:56; Admin Dose 25 ML; Start 04/11/17 at 16:30 Dextrose (D50w Syringe) 50 ml Q15M PRN IV DECREASED GLUCOSE; Start 04/11/17 at 16:30 Glucagon (Glucagen) 1 mg Q15M PRN IM DECREASED GLUCOSE; Start 04/11/17 at 16:30 Glucose (Glutose) 15 gm Q15M PRN BUCCAL DECREASED GLUCOSE; Start 04/11/17 at 16 :30 Metoclopramide HCl (Reglan) 10 mg Q6 IV Last administered on 05/10/17 05:21; Admin Dose 10 MG; Start 04/12/17 at 18:00 Insulin Aspart (Novolog Insulin Pen) NOVOLOG *MILD* ALGORI... Q6H SC Last administered on 05/10/17 06:27; Admin Dose 1 UNIT; Start 04/15/17 at 00:00 IV Flush (NS 10 ml) 10 ml PRN PRN IV FLUSH LINE; Start 04/15/17 at 13:00 Amiodarone HCl (Cordarone) 200 mg BID GTB Last administered on 05/10/17 08:58 ; Admin Dose 200 MG; Start 04/16/17 at 13:00 Heparin Sodium (Porcine) (Heparin (5000 Units/0.5 ml)) 5,000 unit BID SC Last administered on 04/30/17 21:03; Admin Dose 5,000 UNIT; Start 04/18/17 at 16:22; Status Future Hold Citalopram Hydrobromide (Celexa) 20 mg DAILY NGT Last administered on 08:57; Admin Dose 20 MG; Start 04/19/17 at 09:00 Hydralazine HCl 20 mg 20 mg Q6H PRN IV sbp ABOVE 160 Last administered on 12:23; Admin Dose 20 MG; Start 04/18/17 at 18:30 Caspofungin/ Sodium Chloride (Cancidas/NS) 250 ml @ 250 mls/hr Q24H IV Last administered on 05/10/17 10:09; Admin Dose 250 MLS/HR; Start 04/21/17 at 10:00 Chlorhexidine Gluconate (Peridex) 15 ml BID MT Last administered on 05/10/17 08:56; Admin Dose 15 ML; Start 04/22/17 at 21:00 Vitamin A/Vitamin D (Vitamin A & D Oint) 1 applic TID TOP Last administered on 05/10/17 08:57; Admin Dose 1 APPLIC; Start 04/22/17 at 21:00 Vitamin A/Vitamin D (Vitamin A & D Oint) 1 applic TID PRN TOP DRYNESS Last administered on 04/22/17 15:29; Admin Dose 1 APPLIC; Start 04/22/17 at 15:00 Acetaminophen/ Hydrocodone Bitart ([place] (5/325)) 1 tab Q6H GTB Last administered on 05/10/17 09:00; Admin Dose 1 TAB; Start 04/22/17 at 21:30 Spironolactone (Aldactone) 25 mg DAILY NGT Last administered on 05/10/17 08:57 ; Admin Dose 25 MG; Start 04/25/17 at 19:00; Status Future hold Diltiazem HCl (Cardizem Iv) 5 mg Q1H PRN IV HEART RATE GREATER THAN 120 Last administered on 04/29/17 06:17; Admin Dose 5 MG; Start 04/29/17 at 05:00 Metronidazole 500 mg 500 mg Q8 GTB Last administered on 05/10/17 05:21; Admin Dose 500 MG; Start 04/30/17 at 22:00 Sodium Chloride 1,000 ml @ 0 mls/hr Q0M IV Last administered on 05/01/17 03: 00; Admin Dose 1,000 MLS/HR; Start 05/01/17 at 03:00 Sodium Chloride (NS) 1,000 ml @ 0 mls/hr Q0M IV Last administered on 04:00; Admin Dose 1,000 MLS/HR; Start 05/01/17 at 03:30 Pantoprazole 40 mg 40 mg BID@06,18 IV Last administered on 05/10/17 05:21; Admin Dose 40 MG; Start 05/02/17 at 15:00 Diltiazem HCl (Cardizem-D5W 125 Mg/125 ml Drip) 125 ml @ 5 mls/hr TITRATE IV Last administered on 05/02/17 19:11; Admin Dose 5 MLS/HR; Start 05/02/17 at 19: 00 Hydrocortisone (Solu-Cortef) 100 mg BID IV Last administered on 05/10/17 08:59 ; Admin Dose 100 MG; Start 05/04/17 at 21:00 Valacyclovir HCl (Valtrex) 1,000 mg DAILY GTB Last administered on 05/10/17 08 :57; Admin Dose 1,000 MG; Start 05/06/17 at 09:00 Metoprolol Tartrate (Lopressor) 25 mg QID GTB Last administered on 05/10/17 08 :58; Admin Dose 25 MG; Start 05/07/17 at 09:00 Furosemide 40 mg 40 mg Q12 IV Last administered on 05/10/17 08:59; Admin Dose 40 MG; Start 05/08/17 at 09:00 Cefepime HCl (Maxipime 1gm/50 ml (Pmx)) 50 ml @ 100 mls/hr Q24H IVPB Last administered on 05/09/17 18:29; Admin Dose 100 MLS/HR; Start 05/08/17 at 18:00 ALYSSA THOMPSON MD May 10, 2017 12:29
[2017-05-10 14:42] LABS: HEMATOCRIT 24.2 % (37.0-47.0); HEMOGLOBIN 7.9 g/dl (12.0-16.0)
--- NOTE | 2017-05-10 14:46 | CONS ---
Date/Time of Note Date/Time of Note DATE: 05/10/17 TIME: 14:32 Assessment/Plan Assessment/Plan Chief Complaint/Hosp Course ID PROGRESS NOTE CURRENT ABX=>Cancidas #, Flagyl, Valtrex, + Cefepime #3 + Colistin INH #3 Merrem -> DC'd 05/08 Merrem #14 total -> DC'd 04/26=> Restarted 24H INTERVAL SUMMARY/HOSPITAL COURSE * Awake, alert, more interactive and moving upper extremities a bit * Spouse worried about increased facial edema which is clearly related to her anasarca 3rd spacing; and is exacerbated by her preference to lean her head forward with neck flexion over her trach ties -- this position impedes jugular venous return. Her entire lower jaw and lips are more edematous than usual. The HSV lip lesions are much improved; nevertheless, there are still areas of lower lip open crack lesions that tend to bleed with oral care and are painful. I spent significant amount of time educating the spouse today about the nature of Anasarca-> 3rd spacing exacerbated by compromised venous/lymphatic return due to protein calorie malnutrition, prolonged bedrest without use of skeletal muscles, artificial IV fluids, renal failure requiring diuretics and HD to remove the fluid. I explained to the spouse that this situation of increased facial and lip edema is NOT critical pathology rather a symptom of underlying conditions. Encouraged him not to focus so much on the 3rd spacing problem. There is NO concern of angioedema. * RN reports [facility] Infection Control inquiring about clarification on need for isolation for herpes simplex virus lip lesions ? * 05/06 [facility] C[facility]URE Final Organism 1 PSEUDOMONAS AERUGINOSA QUANTITY 2+ P.AERUG M.I.C. RX --------- --- AMIKACIN <=2 S AZTREONAM R CEFEPIME 8 S CEFTAZIDIME 8 S CIPROFLOXACIN I GENTAMICIN <=1 S IMIPENEM >=16 R LEVOFLOXACIN >=8 R TOBRAMYCIN <=1 S PIPERACILLIN/TAZOBACTAM 32 S PHYSICAL EXAMINATION: GENERAL: 66 yo F, stable on the Vent HEENT: Atraumatic, (+)Lip crusting lesions healing NECK: (+)Trach in place secure to VENT CHEST: Rise symmetrical w/coarse BS, scattered rales/rhonchi ABDOMEN: Soft, peg EXTREMITIES: Warm, moves extremities ID ASSESSMENT: 66 yo F w/PMHx tongue cancer, chronic trach re-admit H from SNF with: 1. s/p Acute severe sepsis/shock on admission w/(+)fever, tachycardia, lactic acidosis, leukocytosis, (+)troponin leak = RESOLVING * Leukocytosis persisting * Fungemia => repeat BCx negative 2. Anasarca w/increased facial edema/bilateral lip edema w/resolving HSV lip lesions * -- facial edema is worse due to patient preference while sitting up to lean her head forward w/neck flexion over her trach/trach-tie -- this position compromised jugular venous return. 3. Acute respiratory failure = recurrent issue s/p intubation x3rd episode w/ extubation, now with Trach secure to Vent 3. HCAP=> Recurrent Aspiration PNA post emesis // Hx of GNR tracheobronchitis * Sputum 04/21/17 (+)Yeast * 04/06/17 (+)PSAR = MDRO * 04/06/17 (+)Proteus Mirabilis 4. Acute CHF w/elevated BNP 8000 in setting tachycardia, sepsis, pulmonary edema on CXR 5. s/p Nausea w/emesis on admission -> RESOLVED * Query: DM Autonomic Gastroparesis * GERD 6. Cholelithiasis w/dilated CBD->HIDA scan (+cholecystitis 04/12/17=> s/p Mansi Drain 04/17/17, no surgery per GI 7. Acute renal failure = started on HD 8. Dysphagia sp PEG placement 9. Paroxysmal Afib 10. NSTEMI in setting sepsis, tachycardia, acute hypoxic respiratory failure, acute CHF exacerbation 11. Elevated glucose - iatrogenic diabetes while on IV steroids 12. Leukocytosis = partial steroids demargination 13. Lip lesions => consistent w/herpes simplex virus outbreak -> On Valtrex HEALING 14. s/p GIB associates with Acute on chronic anemia secondary to AVM ==> stopped , status post EGD on May 02 with injection of epinephrine 15. Recent (+)C.Diff on 03/07/16 (treated) w/(-)C.Diff 03/20/17 (-) MRSA Nares screen (04/03/17) INVASIVES: Trach, PEG, FC, R-FEM Amrit (05/04/17) ABX ALLERGY: Iodine CURRENT ABX: =>Cancidas #, Flagyl, Valtrex, + Cefepime #3 + Colistin INH #3 Merrem -> DC'd 05/08 Merrem #14 total -> DC'd 04/26=> Restarted ID PLAN: 1. DC Cancidas today, continue Valtrex until lip lesions healed, continue empiric Flagyl while on ABX for PSAR PNA * Continue current ABX --PSAR is sensitive to Cefepime + Colistin INH 2. Repeat Stool for C.Diff due to rising WBC 3. RN reports [facility] Infection Control inquiring about clarification on need for isolation for herpes simplex virus lip lesions ? * I advised the RN that Herpes Simplex Virus does not require isolation; perhaps [facility] Infection Control was concerned about the presence of Herpes Zoster outbreak ? * No evidence of H. Zoster 4. LENGTHY PT/SPOUSE EDUCATION PROVIDED @ BEDSIDE TODAY: Spouse worried about increased facial edema which is clearly related to her anasarca 3rd spacing=> There is NO concern of angioedema. * Facial/lip engorgement is exacerbated by her preference to lean her head forward with neck flexion over her trach ties -- this position impedes jugular venous return. Her entire lower jaw and lips are more edematous than usual. The HSV lip lesions are much improved; nevertheless, there are still areas of lower lip open crack lesions that tend to bleed with oral care and are painful. I spent significant amount of time educating the spouse today about the nature of Anasarca-> 3rd spacing exacerbated by compromised venous/lymphatic return due to protein calorie malnutrition, prolonged bedrest without use of skeletal muscles, artificial IV fluids, renal failure requiring diuretics and HD to remove the fluid. I explained to the spouse that this situation of increased facial and lip edema is NOT critical pathology rather a symptom of underlying conditions. Encouraged him not to focus so much on the 3rd spacing problem. . Problems: Consultation Date/Type/Reason Admit Date/Time Apr 11, 2017 at 11:28 Initial Consult Date 04/11/17 Type of Consultation: ID Referring Provider: NINA MACIEL DO Exam/Review of Systems Vital Signs Vitals Vital Signs Date Time Temp Pulse Resp B/P Pulse Ox O2 Delivery O2 Flow Rate FiO2 05/10/17 13:05 71 17 100 30 05/10/17 11:12 98.6 126/66 05/09/17 23:34 Bag Valve Mask Intake and Output 05/09/17 05/09/17 05/10/17 15:00 23:00 07:00 Intake Total 300 ml 300 ml 750 ml Output Total 4000 ml 900 ml 700 ml Balance -3700 ml -600 ml 50 ml Results Result Diagram: 05/10/17 0505/10/17 05 Results 24 hrs Laboratory Tests Test 05/09/17 18:32 05/10/17 00:03 05/10/17 05:29 05/10/17 06:20 Bedside Glucose 137 160 171 White Blood Count 15.8 #H Red Blood Count 2.48 L Hemoglobin 7.5 L Hematocrit 22.9 L Mean Corpuscular Volume 92.3 Mean Corpuscular Hemoglobin 30.2 Mean Corpuscular Hemoglobin Concent 32.8 Red Cell Distribution Width 19.6 H Platelet Count 148 # Mean Platelet Volume 13.5 H Neutrophils % 91.2 H Lymphocytes % 3.5 L Monocytes % 3.5 Eosinophils % 0.1 Basophils % 0.1 Nucleated Red Blood Cells % 0.0 Neutrophils # 14.4 H Lymphocytes # 0.6 L Monocytes # 0.6 Eosinophils # 0.0 Basophils # 0.0 Nucleated Red Blood Cells # 0.0 Sodium Level 139 Potassium Level 3.5 Chloride Level 101 Carbon Dioxide Level 29 Anion Gap 13 Blood Urea Nitrogen 50 H Creatinine 1.56 H Glucose Level 144 # Calcium Level 8.4 Phosphorus Level 2.9 Magnesium Level 2.0 Test 05/10/17 12:20 Bedside Glucose 156 Medications Medications Current Medications Aspirin (Aspirin) 325 mg DAILY NGT Last administered on 04/30/17 08:43; Admin Dose 325 MG; Start 04/12/17 at 09:00; Status Future Hold Metoprolol Tartrate (Lopressor) 5 mg Q4H PRN IV HR>110 Hold SBP<110 Last administered on 04/20/17 17:36; Admin Dose 5 MG; Start 04/11/17 at 13:30 Miscellaneous Information 1 ea NOTE XX ; Start 04/11/17 at 16:30 Glucose (Glutose) 15 gm Q15M PRN PO DECREASED GLUCOSE Last administered on 05/07 03:27; Admin Dose 15 GM; Start 04/11/17 at 16:30 Glucose (Glutose) 22.5 gm Q15M PRN PO DECREASED GLUCOSE; Start 04/11/17 at 16: 30 Dextrose (D50w Syringe) 25 ml Q15M PRN IV DECREASED GLUCOSE Last administered on 04/12/17 23:56; Admin Dose 25 ML; Start 04/11/17 at 16:30 Dextrose (D50w Syringe) 50 ml Q15M PRN IV DECREASED GLUCOSE; Start 04/11/17 at 16:30 Glucagon (Glucagen) 1 mg Q15M PRN IM DECREASED GLUCOSE; Start 04/11/17 at 16:30 Glucose (Glutose) 15 gm Q15M PRN BUCCAL DECREASED GLUCOSE; Start 04/11/17 at 16 :30 Metoclopramide HCl (Reglan) 10 mg Q6 IV Last administered on 05/10/17 12:42; Admin Dose 10 MG; Start 04/12/17 at 18:00 Insulin Aspart (Novolog Insulin Pen) NOVOLOG *MILD* ALGORI... Q6H SC Last administered on 05/10/17 12:47; Admin Dose 1 UNIT; Start 04/15/17 at 00:00 IV Flush (NS 10 ml) 10 ml PRN PRN IV FLUSH LINE; Start 04/15/17 at 13:00 Amiodarone HCl (Cordarone) 200 mg BID GTB Last administered on 05/10/17 08:58 ; Admin Dose 200 MG; Start 04/16/17 at 13:00 Heparin Sodium (Porcine) (Heparin (5000 Units/0.5 ml)) 5,000 unit BID SC Last administered on 04/30/17 21:03; Admin Dose 5,000 UNIT; Start 04/18/17 at 16:22; Status Future Hold Citalopram Hydrobromide (Celexa) 20 mg DAILY NGT Last administered on 08:57; Admin Dose 20 MG; Start 04/19/17 at 09:00 Hydralazine HCl 20 mg 20 mg Q6H PRN IV sbp ABOVE 160 Last administered on 12:23; Admin Dose 20 MG; Start 04/18/17 at 18:30 Caspofungin/ Sodium Chloride (Cancidas/NS) 250 ml @ 250 mls/hr Q24H IV Last administered on 05/10/17 10:09; Admin Dose 250 MLS/HR; Start 04/21/17 at 10:00 Chlorhexidine Gluconate (Peridex) 15 ml BID MT Last administered on 05/10/17 08:56; Admin Dose 15 ML; Start 04/22/17 at 21:00 Vitamin A/Vitamin D (Vitamin A & D Oint) 1 applic TID TOP Last administered on 05/10/17 13:40; Admin Dose 1 APPLIC; Start 04/22/17 at 21:00 Vitamin A/Vitamin D (Vitamin A & D Oint) 1 applic TID PRN TOP DRYNESS Last administered on 04/22/17 15:29; Admin Dose 1 APPLIC; Start 04/22/17 at 15:00 Acetaminophen/ Hydrocodone Bitart ([place] (5/325)) 1 tab Q6H GTB Last administered on 05/10/17 09:00; Admin Dose 1 TAB; Start 04/22/17 at 21:30 Spironolactone (Aldactone) 25 mg DAILY NGT Last administered on 05/10/17 08:57 ; Admin Dose 25 MG; Start 04/25/17 at 19:00; Status Future hold Diltiazem HCl (Cardizem Iv) 5 mg Q1H PRN IV HEART RATE GREATER THAN 120 Last administered on 04/29/17 06:17; Admin Dose 5 MG; Start 04/29/17 at 05:00 Metronidazole 500 mg 500 mg Q8 GTB Last administered on 05/10/17 13:39; Admin Dose 500 MG; Start 04/30/17 at 22:00 Sodium Chloride 1,000 ml @ 0 mls/hr Q0M IV Last administered on 05/01/17 03: 00; Admin Dose 1,000 MLS/HR; Start 05/01/17 at 03:00 Sodium Chloride (NS) 1,000 ml @ 0 mls/hr Q0M IV Last administered on 04:00; Admin Dose 1,000 MLS/HR; Start 05/01/17 at 03:30 Pantoprazole 40 mg 40 mg BID@,18 IV Last administered on 05/10/17 05:21; Admin Dose 40 MG; Start 05/02/17 at 15:00 Diltiazem HCl (Cardizem-D5W 125 Mg/125 ml Drip) 125 ml @ 5 mls/hr TITRATE IV Last administered on 05/02/17 19:11; Admin Dose 5 MLS/HR; Start 05/02/17 at 19: 00 Hydrocortisone (Solu-Cortef) 100 mg BID IV Last administered on 05/10/17 08:59 ; Admin Dose 100 MG; Start 05/04/17 at 21:00 Valacyclovir HCl (Valtrex) 1,000 mg DAILY GTB Last administered on 05/10/17 08 :57; Admin Dose 1,000 MG; Start 05/06/17 at 09:00 Metoprolol Tartrate (Lopressor) 25 mg QID GTB Last administered on 05/10/17 13 :40; Admin Dose 25 MG; Start 05/07/17 at 09:00 Furosemide 40 mg 40 mg Q12 IV Last administered on 05/10/17 08:59; Admin Dose 40 MG; Start 05/08/17 at 09:00 Cefepime HCl (Maxipime 1gm/50 ml (Pmx)) 50 ml @ 100 mls/hr Q24H IVPB Last administered on 05/09/17 18:29; Admin Dose 100 MLS/HR; Start 05/08/17 at 18:00 MARGOT WILLS NP May 10, 2017 14:43
--- NOTE | 2017-05-10 15:19 | CONS ---
Date/Time of Note Date/Time of Note DATE: 05/10/17 TIME: 15:14 Assessment/Plan Assessment/Plan Problems: (1) Steroid dependence Status: Chronic Comment: Pt. now s/p code blue event w/ arrest x 30 minutes w/ recovery. This was felt to be due to sepsis. Steroids were increased back up to 100 mg IV q12. Pt. now seems more stable (although profoundly debilitated w/ poor prognosis and family w/ apparent unreasonable expectations). BP, HR stable. Will decrease hydrocortisone to 50 mg IV q12 and monitor to see effect. Pt. should be able to tolerate this decrease. Consultation Date/Type/Reason Admit Date/Time Apr 11, 2017 at 11:28 Initial Consult Date 04/14/17 Type of Consultation: Endocrinology Reason for Consultation steroid dependent adrenal insufficiency Referring Provider: NINA MACIEL DO 24 HR Interval Summary Subjective hx not possible: pt non-verbal Exam/Review of Systems Vital Signs Vitals VS - Last 72 Hours, by Label Date Time Temp Pulse Resp B/P Pulse Ox O2 Delivery O2 Flow Rate FiO2 05/10/17 13:05 71 17 100 30 05/10/17 12:28 69 05/10/17 11:12 98.6 73 20 126/66 100 05/10/17 11:05 68 16 98 30 05/10/17 09:05 73 16 99 30 05/10/17 08:30 68 05/10/17 07:35 66 17 100 30 05/10/17 07:35 66 17 100 30 05/10/17 07:05 98.2 73 18 118/56 100 05/10/17 05:42 70 16 100 30 05/10/17 04:49 70 05/10/17 03:47 97.5 72 18 127/64 100 05/10/17 03:35 70 16 100 30 05/10/17 01:48 70 16 98 30 05/10/17 01:01 68 05/10/17 00:00 97.5 15 128/70 100 05/09/17 23:34 Bag Valve Mask 05/09/17 22:43 66 16 100 30 05/09/17 21:29 72 05/09/17 21:20 67 16 98 30 05/09/17 21:00 40 05/09/17 20:32 70 16 100 30 05/09/17 20:30 98.0 68 18 130/63 99 05/09/17 17:27 Bag Valve Mask 05/09/17 17:21 67 05/09/17 17:15 69 16 99 30 05/09/17 15:43 98.6 64 116/65 05/09/17 15:18 65 16 100 30 05/09/17 13:18 77 17 100 30 05/09/17 12:49 78 05/09/17 11:33 97.6 74 129/62 05/09/17 11:15 81 16 99 30 05/09/17 09:35 71 16 100 40 05/09/17 09:00 40 05/09/17 08:09 65 05/09/17 08:00 69 05/09/17 08:00 69 05/09/17 07:44 98.0 66 104/52 05/09/17 07:30 64 05/09/17 07:18 64 17 100 40 05/09/17 07:15 66 05/09/17 07:00 64 05/09/17 06:30 67 05/09/17 06:00 63 05/09/17 05:30 65 05/09/17 05:26 77 16 100 40 05/09/17 05:00 66 22 05/09/17 05:00 66 05/09/17 04:37 61 05/09/17 03:58 81 16 100 40 05/09/17 03:44 98.3 68 21 136/64 100 05/09/17 01:55 75 16 100 40 05/09/17 00:27 65 05/09/17 00:13 40 05/08/17 23:38 98.9 67 22 128/65 100 05/08/17 22:46 69 05/08/17 22:44 74 16 100 40 05/08/17 22:00 67 16 125/63 100 Mechanical Ventilator 05/08/17 21:58 68 16 100 40 05/08/17 21:00 70 17 127/71 100 Mechanical Ventilator 05/08/17 20:00 69 05/08/17 20:00 40 05/08/17 20:00 98.4 69 17 124/73 100 Mechanical Ventilator 05/08/17 19:20 77 16 100 40 05/08/17 19:00 74 16 117/56 99 Mechanical Ventilator 05/08/17 18:30 70 16 106/59 100 7/27/17 18:00 75 16 121/63 100 Mechanical Ventilator 05/08/17 17:50 76 16 100 40 05/08/17 17:30 76 21 125/65 05/08/17 17:00 76 17 135/68 100 Mechanical Ventilator 05/08/17 16:30 78 11 134/62 100 05/08/17 16:00 97.6 75 16 141/72 100 Mechanical Ventilator 05/08/17 16:00 40 05/08/17 16:00 78 05/08/17 15:30 77 12 144/75 100 05/08/17 15:25 74 18 100 40 05/08/17 15:00 67 16 120/67 100 Mechanical Ventilator 05/08/17 14:15 74 14 141/86 100 05/08/17 13:35 75 16 100 40 05/08/17 13:00 74 14 141/86 100 Mechanical Ventilator 05/08/17 12:30 70 16 133/71 100 05/08/17 12:00 73 05/08/17 12:00 97.6 74 18 131/70 100 Mechanical Ventilator 05/08/17 12:00 40 05/08/17 12:00 40 05/08/17 11:30 74 16 127/65 100 05/08/17 11:30 71 18 100 40 05/08/17 11:00 78 11 145/79 100 Mechanical Ventilator 05/08/17 10:45 40 05/08/17 10:30 40 05/08/17 10:30 81 13 146/85 100 05/08/17 10:00 90 18 147/78 100 Mechanical Ventilator 05/08/17 09:30 81 24 134/69 100 05/08/17 09:15 81 05/08/17 09:05 74 24 100 30 05/08/17 09:00 83 21 150/106 100 Mechanical Ventilator 05/08/17 08:45 90 19 163/91 100 05/08/17 08:30 77 23 136/70 100 05/08/17 08:15 79 24 125/74 100 05/08/17 08:00 98.1 78 25 127/62 100 Mechanical Ventilator 05/08/17 08:00 35 05/08/17 08:00 77 05/08/17 07:45 77 24 99/61 100 05/08/17 07:30 77 24 84/55 100 05/08/17 07:15 77 24 125/64 100 05/08/17 07:00 85 22 05/08/17 07:00 77 22 141/75 100 Mechanical Ventilator 05/08/17 07:00 77 05/08/17 07:00 77 24 100 30 05/08/17 06:45 77 05/08/17 06:30 77 05/08/17 06:15 77 05/08/17 06:00 76 05/08/17 06:00 76 24 134/70 100 Mechanical Ventilator 05/08/17 05:45 79 05/08/17 05:20 75 24 100 30 05/08/17 05:15 77 05/08/17 05:00 79 05/08/17 05:00 79 24 132/69 100 Mechanical Ventilator 05/08/17 04:45 81 05/08/17 04:15 78 05/08/17 04:00 78 22 05/08/17 04:00 80 05/08/17 04:00 81 05/08/17 04:00 98.1 81 24 143/77 100 Mechanical Ventilator 05/08/17 03:40 79 24 100 30 05/08/17 03:00 77 24 154/80 100 Mechanical Ventilator 05/08/17 02:00 76 24 152/78 100 Mechanical Ventilator 05/08/17 01:05 75 24 100 30 05/08/17 01:00 75 24 154/82 100 Mechanical Ventilator 05/08/17 00:00 30 05/08/17 00:00 97.9 78 24 153/97 100 Mechanical Ventilator 05/08/17 00:00 78 05/07/17 23:25 76 24 100 35 05/07/17 23:00 76 25 151/79 100 Mechanical Ventilator 05/07/17 22:00 76 25 136/75 100 Mechanical Ventilator 05/07/17 21:20 90 24 100 35 05/07/17 21:00 87 24 153/96 100 Mechanical Ventilator 05/07/17 20:00 83 05/07/17 20:00 97.7 88 27 144/75 100 Mechanical Ventilator 05/07/17 20:00 35 05/07/17 19:40 89 26 100 35 05/07/17 19:00 87 22 141/73 100 Mechanical Ventilator 05/07/17 18:15 90 24 137/58 100 Mechanical Ventilator 05/07/17 18:00 93 27 156/84 100 Mechanical Ventilator 05/07/17 17:45 98 28 150/92 100 Mechanical Ventilator 05/07/17 17:30 92 7 137/72 100 Mechanical Ventilator 05/07/17 17:15 94 24 130/73 100 05/07/17 17:00 93 27 100 35 05/07/17 17:00 95 22 139/76 100 05/07/17 16:45 95 15 144/70 100 05/07/17 16:30 94 17 156/80 100 05/07/17 16:15 97.4 91 22 150/74 100 05/07/17 16:00 87 05/07/17 16:00 87 9 121/66 100 Mechanical Ventilator 05/07/17 15:45 97.2 86 10 118/63 100 Mechanical Ventilator 05/07/17 15:30 85 10 112/55 100 Mechanical Ventilator 05/07/17 15:15 85 14 118/57 100 Mechanical Ventilator Vital Signs Date Time Temp Pulse Resp B/P Pulse Ox O2 Delivery O2 Flow Rate FiO2 05/10/17 13:05 71 17 100 30 05/10/17 11:12 98.6 126/66 05/09/17 23:34 Bag Valve Mask Intake and Output 05/09/17 05/09/17 05/10/17 15:00 23:00 07:00 Intake Total 300 ml 300 ml 750 ml Output Total 4000 ml 900 ml 700 ml Balance -3700 ml -600 ml 50 ml Exam Constitutional: alert, frail, non-verbal Neck: other ((+) trach on vent) Respiratory: clear to auscultation, normal air movement Cardiovascular: edema (1+ edema BLE), nl pulses, regular rate and rhythm, No murmurs/extra sounds, No rub Gastrointestinal: bowel sounds, nl liver, spleen, non-tender, soft, No mass, No rebound or guarding Musculoskeletal: nl extremities to inspection Extremities: edema (1+ BLE), normal pulses, No clubbing, No cyanosis Neurological: lethargic Additional Comments Bedside Glucose - 72 Hours Test 05/07/17 18:06 05/07/17 23:47 05/08/17 06:05 05/08/17 11:31 Bedside Glucose 129mg/dL (70-220) 144mg/dL (70-220) 142mg/dL (70-220) 147mg/dL (70-220) Test 05/08/17 17:21 05/09/17 00:51 05/09/17 05:51 05/09/17 12:51 Bedside Glucose 144mg/dL (70-220) 98mg/dL (70-220) 116mg/dL (70-220) 124mg/dL (70-220) Test 05/09/17 18:32 05/10/17 00:03 05/10/17 06:20 05/10/17 12:20 Bedside Glucose 137mg/dL (70-220) 160mg/dL (70-220) 171mg/dL (70-220) 156mg/dL (70-220) Results Result Diagram: 05/10/17 1422 05/10/17 0529 Results 24 hrs Laboratory Tests Test 05/09/17 18:32 05/10/17 00:03 05/10/17 05:29 05/10/17 06:20 Bedside Glucose 137 160 171 White Blood Count 15.8 #H Red Blood Count 2.48 L Hemoglobin 7.5 L Hematocrit 22.9 L Mean Corpuscular Volume 92.3 Mean Corpuscular Hemoglobin 30.2 Mean Corpuscular Hemoglobin Concent 32.8 Red Cell Distribution Width 19.6 H Platelet Count 148 # Mean Platelet Volume 13.5 H Neutrophils % 91.2 H Lymphocytes % 3.5 L Monocytes % 3.5 Eosinophils % 0.1 Basophils % 0.1 Nucleated Red Blood Cells % 0.0 Neutrophils # 14.4 H Lymphocytes # 0.6 L Monocytes # 0.6 Eosinophils # 0.0 Basophils # 0.0 Nucleated Red Blood Cells # 0.0 Sodium Level 139 Potassium Level 3.5 Chloride Level 101 Carbon Dioxide Level 29 Anion Gap 13 Blood Urea Nitrogen 50 H Creatinine 1.56 H Glucose Level 144 # Calcium Level 8.4 Phosphorus Level 2.9 Magnesium Level 2.0 Test 05/10/17 12:20 05/10/17 14:22 Bedside Glucose 156 Hemoglobin 7.9 L Hematocrit 24.2 L Medications Medications Current Medications Aspirin (Aspirin) 325 mg DAILY NGT Last administered on 04/30/17t 08:43; Admin Dose 325 MG; Start 04/12/17 at 09:00; Status Future Hold Metoprolol Tartrate (Lopressor) 5 mg Q4H PRN IV HR>110 Hold SBP<110 Last administered on 04/20/17 17:36; Admin Dose 5 MG; Start 04/11/17 at 13:30 Miscellaneous Information 1 ea NOTE XX ; Start 04/11/17 at 16:30 Glucose (Glutose) 15 gm Q15M PRN PO DECREASED GLUCOSE Last administered on 05/07 03:27; Admin Dose 15 GM; Start 04/11/17 at 16:30 Glucose (Glutose) 22.5 gm Q15M PRN PO DECREASED GLUCOSE; Start 04/11/17 at 16: 30 Dextrose (D50w Syringe) 25 ml Q15M PRN IV DECREASED GLUCOSE Last administered on 04/12/17 23:56; Admin Dose 25 ML; Start 04/11/17 at 16:30 Dextrose (D50w Syringe) 50 ml Q15M PRN IV DECREASED GLUCOSE; Start 04/11/17 at 16:30 Glucagon (Glucagen) 1 mg Q15M PRN IM DECREASED GLUCOSE; Start 04/11/17 at 16:30 Glucose (Glutose) 15 gm Q15M PRN BUCCAL DECREASED GLUCOSE; Start 04/11/17 at 16 :30 Metoclopramide HCl (Reglan) 10 mg Q6 IV Last administered on 05/10/17 12:42; Admin Dose 10 MG; Start 04/12/17 at 18:00 Insulin Aspart (Novolog Insulin Pen) NOVOLOG *MILD* ALGORI... Q6H SC Last administered on 05/10/17 12:47; Admin Dose 1 UNIT; Start 04/15/17 at 00:00 IV Flush (NS 10 ml) 10 ml PRN PRN IV FLUSH LINE; Start 04/15/17 at 13:00 Amiodarone HCl (Cordarone) 200 mg BID GTB Last administered on 05/10/17 08:58 ; Admin Dose 200 MG; Start 04/16/17 at 13:00 Heparin Sodium (Porcine) (Heparin (5000 Units/0.5 ml)) 5,000 unit BID SC Last administered on 04/30/17 21:03; Admin Dose 5,000 UNIT; Start 04/18/17 at 16:22; Status Future Hold Citalopram Hydrobromide (Celexa) 20 mg DAILY NGT Last administered on 08:57; Admin Dose 20 MG; Start 04/19/17 at 09:00 Hydralazine HCl (Apresoline) 20 mg Q6H PRN IV sbp ABOVE 160 Last administered on 05/07/17 12:23; Admin Dose 20 MG; Start 04/18/17 at 18:30 Chlorhexidine Gluconate (Peridex) 15 ml BID MT Last administered on 05/10/17 08:56; Admin Dose 15 ML; Start 04/22/17 at 21:00 Vitamin A/Vitamin D (Vitamin A & D Oint) 1 applic TID TOP Last administered on 05/10/17 13:40; Admin Dose 1 APPLIC; Start 04/22/17 at 21:00 Vitamin A/Vitamin D (Vitamin A & D Oint) 1 applic TID PRN TOP DRYNESS Last administered on 04/22/17 15:29; Admin Dose 1 APPLIC; Start 04/22/17 at 15:00 Acetaminophen/ Hydrocodone Bitart ([place] (5/325)) 1 tab Q6H GTB Last administered on 05/10/17 09:00; Admin Dose 1 TAB; Start 04/22/17 at 21:30 Spironolactone (Aldactone) 25 mg DAILY NGT Last administered on 05/10/17 08:57 ; Admin Dose 25 MG; Start 04/25/17 at 19:00; Status Future hold Diltiazem HCl (Cardizem Iv) 5 mg Q1H PRN IV HEART RATE GREATER THAN 120 Last administered on 04/29/17 06:17; Admin Dose 5 MG; Start 04/29/17 at 05:00 Metronidazole 500 mg 500 mg Q8 GTB Last administered on 05/10/17 13:39; Admin Dose 500 MG; Start 04/30/17 at 22:00 Sodium Chloride 1,000 ml @ 0 mls/hr Q0M IV Last administered on 05/01/17 03: 00; Admin Dose 1,000 MLS/HR; Start 05/01/17 at 03:00 Sodium Chloride (NS) 1,000 ml @ 0 mls/hr Q0M IV Last administered on 04:00; Admin Dose 1,000 MLS/HR; Start 05/01/17 at 03:30 Pantoprazole 40 mg 40 mg BID@18 IV Last administered on 05/10/17 05:21; Admin Dose 40 MG; Start 05/02/17 at 15:00 Diltiazem HCl (Cardizem-D5W 125 Mg/125 ml Drip) 125 ml @ 5 mls/hr TITRATE IV Last administered on 05/02/17 19:11; Admin Dose 5 MLS/HR; Start 05/02/17 at 19: 00 Hydrocortisone (Solu-Cortef) 100 mg BID IV Last administered on 05/10/17 08:59 ; Admin Dose 100 MG; Start 05/04/17 at 21:00 Valacyclovir HCl (Valtrex) 1,000 mg DAILY GTB Last administered on 05/10/17 08 :57; Admin Dose 1,000 MG; Start 05/06/17 at 09:00 Metoprolol Tartrate (Lopressor) 25 mg QID GTB Last administered on 05/10/17 13 :40; Admin Dose 25 MG; Start 05/07/17 at 09:00 Furosemide 40 mg 40 mg Q12 IV Last administered on 05/10/17 08:59; Admin Dose 40 MG; Start 05/08/17 at 09:00 Cefepime HCl (Maxipime 1gm/50 ml (Pmx)) 50 ml @ 100 mls/hr Q24H IVPB Last administered on 05/09/17 18:29; Admin Dose 100 MLS/HR; Start 05/08/17 at 18:00 JEAN CISNEROS MD May 10, 2017 15:19
[2017-05-10] MEDS: CEFEPIME 1GM/50 ML (PMX) 50 ML IVPB SCH (17:49)
[2017-05-10 19:32] LABS: HEPATITIS B CORE ANTIBODY NEGATIVE (NEGATIVE)
[2017-05-11] VITALS (29 sets, daily range): BP systolic 103–133; BP diastolic 56–65; PULSE 63–75; RESP 16–20
[2017-05-11] MEDS: METOCLOPRAMIDE 10 MG INJ IV SCH ×4 (00:36→17:33)
[2017-05-11] MEDS: INSULIN ASPART [NOVOLOG] 3 ML PEN SC SCH ×4 (00:42→17:39)
[2017-05-11] MEDS: LEVALBUTEROL (HFA) 15 GM INHALER INH SCH ×4 (01:19→19:30)
[2017-05-11] MEDS: PANTOPRAZOLE 40 MG INJ IV SCH ×2 (06:12→17:33)
[2017-05-11] MEDS: HYDROCODONE/APAP (5/325) TAB GTB SCH ×4 (06:13→23:01)
[2017-05-11] MEDS: LEVOTHYROXINE 75 MCG TAB GTB SCH (06:13)
[2017-05-11] MEDS: metroNIDAZOLE 500 MG TAB GTB SCH ×3 (06:13→23:03)
--- NOTE | 2017-05-11 06:58 | PN ---
DATE: 05/09/2017 SUBJECTIVE DATA: The patient was transferred from intensive care unit to telemetry. Currently on dialysis, tolerating well. The patient continues to have some bleeding around the buccal surface, mild. No other events noted. OBJECTIVE DATA: VITAL SIGNS: Blood pressure 104/53, pulse 65, respirations 17, temperature 98.0. HEENT: Head is normocephalic. Pupils are reactive to light. NECK: Supple. HEART: Has regular rate. LUNGS: Show diminished breath sounds at the base. ABDOMEN: Soft, nontender to palpation. No rebound or guarding. EXTREMITIES: Negative for clubbing or cyanosis. Positive edema. . DERMATOLOGIC: No rashes. MUSCULOSKELETAL: No joint effusion. NEUROLOGICAL: No change in exam. MEDICATIONS: The patient's medications have been reviewed. LABORATORY AND DIAGNOSTIC DATA: Sodium 139, potassium 3.2, chloride 99, BUN 56, creatinine 1.65. White count 19.8, hemoglobin 7.8, hematocrit 38.7, platelet count 114. ASSESSMENT AND PLAN: 1. Status post code arrest. Etiology secondary to sepsis, hypoxemic failure. The patient had return of spontaneous respirations. Continue to monitor. 2. Ventilator-dependent respiratory failure. Vent settings reviewed. ABGs reviewed. Follow up with Pulmonary. 3. Nonoliguric acute kidney injury with previously known baseline creatinine, etiology secondary to septic AKITN. The patient is currently on dialysis due to volume overload. The patient has received daily dialysis for the last four days. Plan is to hold dialysis after today. Monitor for signs of renal recovery. 4. Hypokalemia. Replete with potassium chloride. 5. Sepsis/septic shock, etiology secondary to aspiration pneumonia fungemia. The patient remains on broad-spectrum antibiotics and antifungals. The patient's blood cultures have been reviewed. Continue current treatment plan. Follow up with Infectious Disease. 6. History of throat cancer with oral mucosal bleed. Etiology may be due to underlying trauma. ENT consult will be placed with Dr. Carpio for evaluation. 7. Volume overload. Continue ultrafiltration with hemodialysis. 8. Adrenal insufficiency. Continue current steroid regimen. Appreciate endocrinology evaluation. 9. Ischemic encephalopathy, etiology toxic metabolic. Continue to monitor. 10. Hypothyroidism. Continue Synthroid. 11. Anemia with episode of GI bleed. Patient status post EGD with cauterization of fundal bleed. Continue to monitor hemoglobin and hematocrit levels. They have been trending up slowly. Will give Epogen. Will consider blood transfusion. 12. Bone metabolic disorder. Monitor calcium and phosphorus levels. 13. Diastolic failure. . Continue medical management. 14. Leukocytosis, etiology secondary to sepsis and steroids. Continue to monitor. Follow with Infectious Disease. 15. Left upper extremity deep vein thrombosis. Antiplatelets have been on hold due to recent bleed. 16. Dysphagia. Continue tube feed. 17. Arrhythmia. Continue medical management. 18. Cholelithiasis. 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 Appreciate Neurology's evaluation. Dictated By: Abebe Valderrama DO /[email or web address]/jalen /Document#: [id number]
[2017-05-11 07:36] LABS: ABNORMAL IP MESSAGE 1; BASOPHILS % 0.2 % (0.0-2.0); EOSINOPHILS % 0.1 % (0.0-7.0); HEMATOCRIT 23.5 % (37.0-47.0); HEMOGLOBIN 7.7 g/dl (12.0-16.0); LYMPHOCYTES # 0.7 10^3/ul (0.8-2.9); LYMPHOCYTES % 3.6 % (15.0-51.0); MEAN CORPUSCULAR HEMOGLOBIN 30.4 pg (29.0-33.0); MEAN CORPUSCULAR HGB CONC 32.8 g/dl (32.0-37.0); MEAN CORPUSCULAR VOLUME 92.9 fl (82.0-101.0); MEAN PLATELET VOLUME 13.7 fl (7.4-10.4); MONOCYTE # 0.5 10^3/ul (0.3-0.9); MONOCYTES % 2.8 % (0.0-11.0); NEUTROPHIL # 17.4 10^3/ul (1.6-7.5); NEUTROPHILS % 91.6 % (39.0-77.0); PLATELET COUNT 196 10^3/UL (140-415); RED BLOOD COUNT 2.53 10^6/ul (4.20-5.40); RED CELL DISTRIBUTION WIDTH 19.6 % (11.5-14.5)
--- NOTE | 2017-05-11 07:52 | CONS ---
DATE OF ADMISSION: 04/11/2017 DATE OF CONSULTATION: 05/11/2017 HISTORY OF PRESENT ILLNESS: Miroslava Glasgow is a 66-year-old female admitted with hypoxic respiratory failure secondary to aspiration pneumonia, is also status post cardiopulmonary arrest. She has been bleeding and now has a hemoglobin of 6.9 as of May 02. ENT was consulted to evaluate this. PAST MEDICAL HISTORY: Sepsis, tongue cancer, encephalopathy, heart failure, COPD, paroxysmal atrial fibrillation. PAST SURGICAL HISTORY: Emergent tracheostomy, resection of tongue with flap closure numerous years ago, percutaneous endoscopic gastrostomy tube. MEDICATION: List was reviewed. ALLERGIES: NO KNOWN DRUG ALLERGIES. SOCIAL HISTORY: Remote tobacco use. Negative for alcohol or drug abuse. FAMILY HISTORY: Negative for any heart, lung, kidney, disease. REVIEW OF SYSTEMS: Obtained from her and is otherwise negative going through a 12-point list. PHYSICAL EXAMINATION: HEENT: Her septum has now been deviated. There is an excoriation of the nasal mucosa anteriorly. show some fresh blood on the lips but no blood whatsoever within the oral cavity. Teeth in good repair. Tongue and mouth are normal. There are some mucoid secretions in the oropharynx. These were suctioned. NECK: Reveals no lymphadenopathy or thyromegaly. The tracheostomy tube is stable. Endoscopy through the tracheostomy tube revealed some mild excoriation of the tracheal mucosa but no significant blood was noted at all. Nasopharyngolaryngoscope was performed through the nasal cavity. This is clear. The nasopharynx is without lesion. The patient's tongue is symmetric. open. The epiglottis is without lesion. The larynx shows edema but there is no evidence of any lesions nor do I see any significant blood at all. IMPRESSION: 1. Hemoptysis. 2. Tracheostomy malfunction. 3. Respiratory failure. 4. Tongue cancer. PLAN: In regard to the hemoptysis I see no lesion whatsoever. Please send for reconsult should the bleeding restart. 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 She is presently on a ventilator but hopefully will be decannulated shortly. In regard to her tongue cancer, she is without evidence of recurrent disease. Dictated By: Greg Carpio MD /marquita/laith /Document#: [id number]
[2017-05-11 07:53] LABS: POSITIVE DIFF @See below
[2017-05-11 08:00] LABS: CALCIUM 8.3 mg/dl (8.4-10.2); CREATININE 1.75 mg/dl (0.44-1.00); PHOSPHORUS 3.2 mg/dl (2.5-4.9)
--- NOTE | 2017-05-11 08:04 | CONS ---
DATE OF ADMISSION: 04/11/2017 DATE OF CONSULTATION: 05/10/2017 HISTORY OF PRESENT ILLNESS: ENT was re-consulted to do a tracheostomy change. She had recent sepsis, but appears to be doing well and putting out good urine. ENT was re-consulted to recheck the tracheostomy tube. PAST MEDICAL HISTORY: 1. Diabetes. 2. Respiratory failure. 3. Tongue cancer. PAST SURGICAL HISTORY: 1. Tracheostomy. 2. Percutaneous endoscopic gastrotomy tube. 3. Tongue cancer resection with flap closure over 10 years ago. ALLERGIES: NONE. MEDICATIONS: List reviewed. SOCIAL HISTORY: Positive for tobacco use in the distant past. Negative for alcohol or drug abuse. FAMILY HISTORY: Negative for any heart, lung, kidney, thyroid or liver disease. REVIEW OF SYSTEMS: A 12-point review of systems was otherwise negative, discussing with the patient and her significant other. PROCEDURE: At this point, endoscopy through the tracheostomy tube shows that the tracheostomy tube is in good position. The tube was removed and endoscopy was performed directly through the tracheal stoma with the trach tube over the scope. I was able to see easily down to the sammy. The area of tracheomalacia posteriorly appears to be healing nicely. There is no blood there whatsoever. At this point, the scope was advanced over the tube. Once in place, I could still see the sammy, and so it was in good position. At this point, the balloon was inflated. The patient was placed back on the ventilator and resting comfortably. IMPRESSION: 1. Respiratory failure. 2. Tracheostomy malfunction. 3. Tracheomalacia. PLAN: At this point, whenever she has the tracheostomy tube changed it should be done over either a scope or a tube exchanger. This was discussed with her . With that being said, we will continue to follow. Please feel free to re-consult at any time. Dictated By: Greg Carpio MD /marquita/elba /Document#: [id number]
[2017-05-11] MEDS: HYDROCORTISONE 100 MG INJ IV SCH ×2 (08:31→23:02)
[2017-05-11] MEDS: CHLORHEXIDINE GLUCONATE 15 ML UD CUP MT SCH ×2 (08:31→23:02)
[2017-05-11] MEDS: SPIRONOLACTONE 25 MG TAB NGT SCH (08:32)
[2017-05-11] MEDS: AMIODARONE 200 MG TAB GTB SCH ×2 (08:32→23:03)
[2017-05-11] MEDS: CITALOPRAM 20 MG TAB NGT SCH (08:32)
[2017-05-11] MEDS: VALACYCLOVIR 500 MG TAB GTB SCH (08:32)
[2017-05-11] MEDS: FUROSEMIDE 40 MG INJ IV SCH ×2 (08:32→23:02)
[2017-05-11] MEDS: METOPROLOL 25 MG TAB GTB SCH ×4 (08:33→23:03)
[2017-05-11] MEDS: VITAMIN A & D 5 GM OINT PACKET TOP SCH ×3 (08:33→21:00)
[2017-05-11] MEDS: COLISTIMETHATE (25 MG/ML INHAL SYG) NEB SCH ×2 (09:07→20:14)
[2017-05-11] MEDS ORDERED: EPOETIN 10000 UNITS/1 ML INJ (ESRD) SC SCH (10:00)
--- NOTE | 2017-05-11 11:23 | CONS ---
Date/Time of Note Date/Time of Note DATE: 05/11/17 TIME: 11:22 Assessment/Plan Assessment/Plan Additional Assessment/Plan Ventilator settings are AC of 16, tidal volume 500, PEEP of 5, 30% FiO2. Assessment recommendations; 1. Patient is admitted for treatment of severe bilateral pneumonia currently on broad-spectrum antibiotic coverage. With increasing leukocytosis. 2. Chronic respiratory failure. Status post redo tracheostomy 2. 3. Remote history of glossal cancer. 4. Chronic dysphagia. 5. COPD. 6. Anemia. 7. Generalized deconditioning. Continue current treatment. Obtain a follow-up chest x-ray. Consultation Date/Type/Reason Admit Date/Time Apr 11, 2017 at 11:28 Initial Consult Date 05/01/17 Type of Consultation: Pulmonary Referring Provider: NINA MACIEL DO 24 HR Interval Summary Free Text/Dictation Patient condition remains stable. Remains ventilator dependent. Patient is arousable but remains lethargic. General exam; elderly woman, on ventilator via tracheostomy, currently in no distress. Awake . Exam/Review of Systems Vital Signs Vitals Vital Signs Date Time Temp Pulse Resp B/P Pulse Ox O2 Delivery O2 Flow Rate FiO2 05/11/17 11:05 94 17 99 30 05/11/17 07:58 98.4 103/56 05/09/17 23:34 Bag Valve Mask Intake and Output 05/10/17 05/10/17 05/11/17 15:00 23:00 07:00 Intake Total 1200 ml 1240 ml Output Total 4000 ml Balance 1200 ml -2760 ml Exam HEENT exam; supple neck, no JVD. No lymphadenopathy. Midline trachea. No thyromegaly. Tracheostomy in place. Patient has fair dentition. Pupils are equal and reactive to light. Chest exam; diminished breath sounds bilaterally. No added sound. S1-S2 audible, no murmurs. Regular rhythm. Abdomen exam; soft, G-tube in place. Normal distended. Bowel sounds audible. Extremity exam; no peripheral edema. [employer]VER [employer] exam; patient is awake and follows simple commands. Results Result Diagram: 05/11/17 0600 05/11/17 0600 Results 24 hrs Laboratory Tests Test 05/10/17 12:20 05/10/17 14:22 05/10/17 17:42 05/11/17 00:36 Bedside Glucose 156 180 171 Hemoglobin 7.9 L Hematocrit 24.2 L Test 05/11/17 06:00 05/11/17 06:11 White Blood Count 19.0 #H Red Blood Count 2.53 L Hemoglobin 7.7 L Hematocrit 23.5 L Mean Corpuscular Volume 92.9 Mean Corpuscular Hemoglobin 30.4 Mean Corpuscular Hemoglobin Concent 32.8 Red Cell Distribution Width 19.6 H Platelet Count 196 # Mean Platelet Volume 13.7 H Neutrophils % 91.6 H Lymphocytes % 3.6 L Monocytes % 2.8 Eosinophils % 0.1 Basophils % 0.2 Nucleated Red Blood Cells % 0.0 Neutrophils # 17.4 H Lymphocytes # 0.7 L Monocytes # 0.5 Eosinophils # 0.0 Basophils # 0.0 Nucleated Red Blood Cells # 0.0 Sodium Level 139 Potassium Level 4.0 Chloride Level 99 Carbon Dioxide Level 29 Anion Gap 15 Blood Urea Nitrogen 62 H Creatinine 1.75 H Glucose Level 138 Calcium Level 8.3 L Phosphorus Level 3.2 Magnesium Level 2.0 Bedside Glucose 150 Medications Medications Current Medications Aspirin (Aspirin) 325 mg DAILY NGT Last administered on 04/30/17 08:43; Admin Dose 325 MG; Start 04/12/17 at 09:00; Status Future Hold Metoprolol Tartrate (Lopressor) 5 mg Q4H PRN IV HR>110 Hold SBP<110 Last administered on 04/20/17 17:36; Admin Dose 5 MG; Start 04/11/17 at 13:30 Miscellaneous Information 1 ea NOTE XX ; Start 04/11/17 at 16:30 Glucose (Glutose) 15 gm Q15M PRN PO DECREASED GLUCOSE Last administered on 05/07 03:27; Admin Dose 15 GM; Start 04/11/17 at 16:30 Glucose (Glutose) 22.5 gm Q15M PRN PO DECREASED GLUCOSE; Start 04/11/17 at 16: 30 Dextrose (D50w Syringe) 25 ml Q15M PRN IV DECREASED GLUCOSE Last administered on 04/12/17 23:56; Admin Dose 25 ML; Start 04/11/17 at 16:30 Dextrose (D50w Syringe) 50 ml Q15M PRN IV DECREASED GLUCOSE; Start 04/11/17 at 16:30 Glucagon (Glucagen) 1 mg Q15M PRN IM DECREASED GLUCOSE; Start 04/11/17 at 16:30 Glucose (Glutose) 15 gm Q15M PRN BUCCAL DECREASED GLUCOSE; Start 04/11/17 at 16 :30 Metoclopramide HCl (Reglan) 10 mg Q6 IV Last administered on 05/11/17 06:12; Admin Dose 10 MG; Start 04/12/17 at 18:00 Insulin Aspart (Novolog Insulin Pen) NOVOLOG *MILD* ALGORI... Q6H SC Last administered on 05/11/17 06:38; Admin Dose 1 UNIT; Start 04/15/17 at 00:00 IV Flush (NS 10 ml) 10 ml PRN PRN IV FLUSH LINE; Start 04/15/17 at 13:00 Amiodarone HCl (Cordarone) 200 mg BID GTB Last administered on 05/11/17 08:32 ; Admin Dose 200 MG; Start 04/16/17 at 13:00 Heparin Sodium (Porcine) (Heparin (5000 Units/0.5 ml)) 5,000 unit BID SC Last administered on 04/30/17 21:03; Admin Dose 5,000 UNIT; Start 04/18/17 at 16:22; Status Future Hold Citalopram Hydrobromide (Celexa) 20 mg DAILY NGT Last administered on 08:32; Admin Dose 20 MG; Start 04/19/17 at 09:00 Hydralazine HCl (Apresoline) 20 mg Q6H PRN IV sbp ABOVE 160 Last administered on 05/07/17 12:23; Admin Dose 20 MG; Start 04/18/17 at 18:30 Chlorhexidine Gluconate (Peridex) 15 ml BID MT Last administered on 05/11/17 08:31; Admin Dose 15 ML; Start 04/22/17 at 21:00 Vitamin A/Vitamin D (Vitamin A & D Oint) 1 applic TID TOP Last administered on 05/11/17 08:33; Admin Dose 1 APPLIC; Start 04/22/17 at 21:00 Vitamin A/Vitamin D (Vitamin A & D Oint) 1 applic TID PRN TOP DRYNESS Last administered on 04/22/17 15:29; Admin Dose 1 APPLIC; Start 04/22/17 at 15:00 Acetaminophen/ Hydrocodone Bitart ([place] (5/325)) 1 tab Q6H GTB Last administered on 05/11/17 09:50; Admin Dose 1 TAB; Start 04/22/17 at 21:30 Spironolactone (Aldactone) 25 mg DAILY NGT Last administered on 05/11/17 08:32 ; Admin Dose 25 MG; Start 04/25/17 at 19:00; Status Future hold Diltiazem HCl (Cardizem Iv) 5 mg Q1H PRN IV HEART RATE GREATER THAN 120 Last administered on 04/29/17 06:17; Admin Dose 5 MG; Start 04/29/17 at 05:00 Metronidazole 500 mg 500 mg Q8 GTB Last administered on 05/11/17 06:13; Admin Dose 500 MG; Start 04/30/17 at 22:00 Sodium Chloride 1,000 ml @ 0 mls/hr Q0M IV Last administered on 05/01/17 03: 00; Admin Dose 1,000 MLS/HR; Start 05/01/17 at 03:00 Sodium Chloride (NS) 1,000 ml @ 0 mls/hr Q0M IV Last administered on 04:00; Admin Dose 1,000 MLS/HR; Start 05/01/17 at 03:30 Pantoprazole 40 mg 40 mg BID@06,18 IV Last administered on 05/11/17 06:12; Admin Dose 40 MG; Start 05/02/17 at 15:00 Diltiazem HCl (Cardizem-D5W 125 Mg/125 ml Drip) 125 ml @ 5 mls/hr TITRATE IV Last administered on 05/02/17 19:11; Admin Dose 5 MLS/HR; Start 05/02/17 at 19: 00 Valacyclovir HCl (Valtrex) 1,000 mg DAILY GTB Last administered on 05/11/17 08 :32; Admin Dose 1,000 MG; Start 05/06/17 at 09:00 Metoprolol Tartrate (Lopressor) 25 mg QID GTB Last administered on 05/10/17 22 :09; Admin Dose 25 MG; Start 05/07/17 at 09:00 Furosemide 40 mg 40 mg Q12 IV Last administered on 05/11/17 08:32; Admin Dose 40 MG; Start 05/08/17 at 09:00 Cefepime HCl (Maxipime 1gm/50 ml (Pmx)) 50 ml @ 100 mls/hr Q24H IVPB Last administered on 05/10/17 17:49; Admin Dose 100 MLS/HR; Start 05/08/17 at 18:00 Hydrocortisone (Solu-Cortef) 50 mg BID IV Last administered on 05/11/17 08:31 ; Admin Dose 50 MG; Start 05/10/17 at 21:00 EMILIANO HICKS May 11, 2017 11:23
--- NOTE | 2017-05-11 12:40 | CONS ---
Date/Time of Note Date/Time of Note DATE: 05/11/17 TIME: 12:35 Assessment/Plan Assessment/Plan Chief Complaint/Hosp Course Assessment/Plan Chief Complaint/Hosp Course ID PROGRESS NOTE CURRENT ABX=>Cancidas #, Flagyl, Valtrex, + Cefepime #3 + Colistin INH #3 Merrem -> DC'd 05/08 Merrem #14 total -> DC'd 04/26=> Restarted 24H INTERVAL SUMMARY/HOSPITAL COURSE * Awake. Alert. Finished Dialysis. No Acute Distress. * 05/06 SPUTUM RESPIRATORY CULTURE Final Organism 1 PSEUDOMONAS AERUGINOSA QUANTITY 2+ P.AERUG M.I.C. RX --------- --- AMIKACIN <=2 S AZTREONAM R CEFEPIME 8 S CEFTAZIDIME 8 S CIPROFLOXACIN I GENTAMICIN <=1 S IMIPENEM >=16 R LEVOFLOXACIN >=8 R TOBRAMYCIN <=1 S PIPERACILLIN/TAZOBACTAM 32 S PHYSICAL EXAMINATION: GENERAL: 66 yo F, stable on the Vent HEENT: Atraumatic, (+)Lip crusting lesions healing NECK: (+)Trach in place secure to VENT CHEST: Rise symmetrical w/coarse BS, scattered rales/rhonchi ABDOMEN: Soft, peg EXTREMITIES: Warm, moves extremities ID ASSESSMENT: 66 yo F w/PMHx tongue cancer, chronic trach re-admit [facility] from SNF with: 1. s/p Acute severe sepsis/shock on admission w/(+)fever, tachycardia, lactic acidosis, leukocytosis, (+)troponin leak = RESOLVING * Leukocytosis persisting * Fungemia => repeat BCx negative 2. Anasarca w/increased facial edema/bilateral lip edema w/resolving HSV lip lesions * -- facial edema is worse due to patient preference while sitting up to lean her head forward w/neck flexion over her trach/trach-tie -- this position compromised jugular venous return. 3. Acute respiratory failure = recurrent issue s/p intubation x3rd episode w/ extubation, now with Trach secure to Vent 3. HCAP=> Recurrent Aspiration PNA post emesis // Hx of GNR tracheobronchitis * Sputum 04/21/17 (+)Yeast * 04/06/17 (+)PSAR = MDRO * 04/06/17 (+)Proteus Mirabilis 4. Acute CHF w/elevated BNP 8000 in setting tachycardia, sepsis, pulmonary edema on CXR 5. s/p Nausea w/emesis on admission -> RESOLVED * Query: DM Autonomic Gastroparesis * GERD 6. Cholelithiasis w/dilated CBD->HIDA scan (+cholecystitis 04/12/17=> s/p Mansi Drain 04/17/17, no surgery per GI 7. Acute renal failure = started on HD 8. Dysphagia sp PEG placement 9. Paroxysmal Afib 10. NSTEMI in setting sepsis, tachycardia, acute hypoxic respiratory failure, acute CHF exacerbation 11. Elevated glucose - iatrogenic diabetes while on IV steroids 12. Leukocytosis = partial steroids demargination 13. Lip lesions => consistent w/herpes simplex virus outbreak -> On Valtrex HEALING 14. s/p GIB associates with Acute on chronic anemia secondary to AVM ==> stopped , status post EGD on May 02 with injection of epinephrine 15. Recent (+)C.Diff on 03/07/16 (treated) w/(-)C.Diff 03/20/17 (-) MRSA Nares screen (04/03/17) INVASIVES: Trach, PEG, FC, R-FEM Amrit (05/04/17) ABX ALLERGY: Iodine CURRENT ABX: =>Cancidas #, Flagyl, Valtrex, + Cefepime #3 + Colistin INH #3 Merrem -> DC'd 05/08 Merrem #14 total -> DC'd 04/26=> Restarted ID PLAN: 1. DC Cancidas today, continue Valtrex until lip lesions healed, continue empiric Flagyl while on ABX for PSAR PNA * Continue current ABX --PSAR is sensitive to Cefepime + Colistin INH 2. Repeat Stool for C.Diff due to rising WBC. 3. Continue Medications. Monitor Labs. Problems: Consultation Date/Type/Reason Admit Date/Time Apr 11, 2017 at 11:28 Initial Consult Date 05/01/17 Type of Consultation: id Referring Provider: NINA MACIEL DO Exam/Review of Systems Vital Signs Vitals Vital Signs Date Time Temp Pulse Resp B/P Pulse Ox O2 Delivery O2 Flow Rate FiO2 05/11/17 12:14 73 05/11/17 11:26 98.3 20 111/61 99 05/11/17 11:05 30 05/09/17 23:34 Bag Valve Mask Intake and Output 05/10/17 05/10/17 05/11/17 15:00 23:00 07:00 Intake Total 1200 ml 1240 ml Output Total 4000 ml Balance 1200 ml -2760 ml Results Result Diagram: 05/11/17 0600 05/11/17 0600 Results 24 hrs Laboratory Tests Test 05/10/17 14:22 05/10/17 17:42 05/11/17 00:36 05/11/17 06:00 Hemoglobin 7.9 L 7.7 L Hematocrit 24.2 L 23.5 L Bedside Glucose 180 171 White Blood Count 19.0 #H Red Blood Count 2.53 L Mean Corpuscular Volume 92.9 Mean Corpuscular Hemoglobin 30.4 Mean Corpuscular Hemoglobin Concent 32.8 Red Cell Distribution Width 19.6 H Platelet Count 196 # Mean Platelet Volume 13.7 H Neutrophils % 91.6 H Lymphocytes % 3.6 L Monocytes % 2.8 Eosinophils % 0.1 Basophils % 0.2 Nucleated Red Blood Cells % 0.0 Neutrophils # 17.4 H Lymphocytes # 0.7 L Monocytes # 0.5 Eosinophils # 0.0 Basophils # 0.0 Nucleated Red Blood Cells # 0.0 Sodium Level 139 Potassium Level 4.0 Chloride Level 99 Carbon Dioxide Level 29 Anion Gap 15 Blood Urea Nitrogen 62 H Creatinine 1.75 H Glucose Level 138 Calcium Level 8.3 L Phosphorus Level 3.2 Magnesium Level 2.0 Test 05/11/17 06:11 05/11/17 12:20 Bedside Glucose 150 179 Medications Medications Current Medications Aspirin (Aspirin) 325 mg DAILY NGT Last administered on 04/30/17 08:43; Admin Dose 325 MG; Start 04/12/17 at 09:00; Status Future Hold Metoprolol Tartrate (Lopressor) 5 mg Q4H PRN IV HR>110 Hold SBP<110 Last administered on 04/20/17 17:36; Admin Dose 5 MG; Start 04/11/17 at 13:30 Miscellaneous Information 1 ea NOTE XX ; Start 04/11/17 at 16:30 Glucose (Glutose) 15 gm Q15M PRN PO DECREASED GLUCOSE Last administered on 05/07 03:27; Admin Dose 15 GM; Start 04/11/17 at 16:30 Glucose (Glutose) 22.5 gm Q15M PRN PO DECREASED GLUCOSE; Start 04/11/17 at 16: 30 Dextrose (D50w Syringe) 25 ml Q15M PRN IV DECREASED GLUCOSE Last administered on 04/12/17 23:56; Admin Dose 25 ML; Start 04/11/17 at 16:30 Dextrose (D50w Syringe) 50 ml Q15M PRN IV DECREASED GLUCOSE; Start 04/11/17 at 16:30 Glucagon (Glucagen) 1 mg Q15M PRN IM DECREASED GLUCOSE; Start 04/11/17 at 16:30 Glucose (Glutose) 15 gm Q15M PRN BUCCAL DECREASED GLUCOSE; Start 04/11/17 at 16 :30 Metoclopramide HCl (Reglan) 10 mg Q6 IV Last administered on 05/11/17 12:21; Admin Dose 10 MG; Start 04/12/17 at 18:00 Insulin Aspart (Novolog Insulin Pen) NOVOLOG *MILD* ALGORI... Q6H SC Last administered on 05/11/17 12:25; Admin Dose 1 UNIT; Start 04/15/17 at 00:00 IV Flush (NS 10 ml) 10 ml PRN PRN IV FLUSH LINE; Start 04/15/17 at 13:00 Amiodarone HCl (Cordarone) 200 mg BID GTB Last administered on 05/11/17 08:32 ; Admin Dose 200 MG; Start 04/16/17 at 13:00 Heparin Sodium (Porcine) (Heparin (5000 Units/0.5 ml)) 5,000 unit BID SC Last administered on 04/30/17 21:03; Admin Dose 5,000 UNIT; Start 04/18/17 at 16:22; Status Future Hold Citalopram Hydrobromide (Celexa) 20 mg DAILY NGT Last administered on 08:32; Admin Dose 20 MG; Start 04/19/17 at 09:00 Hydralazine HCl (Apresoline) 20 mg Q6H PRN IV sbp ABOVE 160 Last administered on 05/07/17 12:23; Admin Dose 20 MG; Start 04/18/17 at 18:30 Chlorhexidine Gluconate (Peridex) 15 ml BID MT Last administered on 05/11/17 08:31; Admin Dose 15 ML; Start 04/22/17 at 21:00 Vitamin A/Vitamin D (Vitamin A & D Oint) 1 applic TID TOP Last administered on 05/11/17 12:30; Admin Dose 1 APPLIC; Start 04/22/17 at 21:00 Vitamin A/Vitamin D (Vitamin A & D Oint) 1 applic TID PRN TOP DRYNESS Last administered on 04/22/17 15:29; Admin Dose 1 APPLIC; Start 04/22/17 at 15:00 Acetaminophen/ Hydrocodone Bitart ([place] (5/325)) 1 tab Q6H GTB Last administered on 05/11/17 09:50; Admin Dose 1 TAB; Start 04/22/17 at 21:30 Spironolactone (Aldactone) 25 mg DAILY NGT Last administered on 05/11/17 08:32 ; Admin Dose 25 MG; Start 04/25/17 at 19:00; Status Future hold Diltiazem HCl (Cardizem Iv) 5 mg Q1H PRN IV HEART RATE GREATER THAN 120 Last administered on 04/29/17 06:17; Admin Dose 5 MG; Start 04/29/17 at 05:00 Metronidazole 500 mg 500 mg Q8 GTB Last administered on 05/11/17 06:13; Admin Dose 500 MG; Start 04/30/17 at 22:00 Sodium Chloride 1,000 ml @ 0 mls/hr Q0M IV Last administered on 05/01/17 03: 00; Admin Dose 1,000 MLS/HR; Start 05/01/17 at 03:00 Sodium Chloride (NS) 1,000 ml @ 0 mls/hr Q0M IV Last administered on 04:00; Admin Dose 1,000 MLS/HR; Start 05/01/17 at 03:30 Pantoprazole 40 mg 40 mg BID@,18 IV Last administered on 05/11/17 06:12; Admin Dose 40 MG; Start 05/02/17 at 15:00 Diltiazem HCl (Cardizem-D5W 125 Mg/125 ml Drip) 125 ml @ 5 mls/hr TITRATE IV Last administered on 05/02/17 19:11; Admin Dose 5 MLS/HR; Start 05/02/17 at 19: 00 Valacyclovir HCl (Valtrex) 1,000 mg DAILY GTB Last administered on 05/11/17 08 :32; Admin Dose 1,000 MG; Start 05/06/17 at 09:00 Metoprolol Tartrate (Lopressor) 25 mg QID GTB Last administered on 05/11/17 12 :22; Admin Dose 25 MG; Start 05/07/17 at 09:00 Furosemide 40 mg 40 mg Q12 IV Last administered on 05/11/17 08:32; Admin Dose 40 MG; Start 05/08/17 at 09:00 Cefepime HCl (Maxipime 1gm/50 ml (Pmx)) 50 ml @ 100 mls/hr Q24H IVPB Last administered on 05/10/17 17:49; Admin Dose 100 MLS/HR; Start 05/08/17 at 18:00 Hydrocortisone (Solu-Cortef) 50 mg BID IV Last administered on 05/11/17 08:31 ; Admin Dose 50 MG; Start 05/10/17 at 21:00 DOUG GARCES NP May 11, 2017 12:40
--- NOTE | 2017-05-11 13:41 | CONS ---
Date/Time of Note Date/Time of Note DATE: 05/11/17 TIME: 13:40 Assessment/Plan Assessment/Plan Chief Complaint/Hosp Course Patient is a 66 year old female with a history of diabetes mellitus hypertension chronic vent dependency, history of tongue cancer status post resection has a G-tube. GI consult was called in for GI bleeding anemia requiring blood transfusion. Her other problems include aspiration pneumonia, atrial fibrillation well controlled. Patient also had a sepsis and fungemia successfully treated. Her G-tube aspirate shows burgundy colored fluid. Patient is off all the pressor support. She is on a steroid for adrenal insufficiency Problems: Additional Assessment/Plan Additional Assessment/Plan #1 GI bleeding manifested in the form of hematemesis and large burgundy color aspirate through G-tube, successful hemostasis achieved. No further bleeding 2. Vent dependent respiratory failure 3. Atrial fibrillation 4. Diabetes mellitus 5. Hypertension 6. Status post septic shock 7. Anemia, no active bleeding, further drop in hematocrit may be due to chronic disease 8. Prerenal azotemia, patient is on dialysis now 9. Status post cardiac arrest in the past 10. Leukocytosis 11. Encephalopathy Plan Transfuse 2 units of packed cell RBC bring hemoglobin greater than 7.5 Continue with PPI Refrain from all kind of blood thinner is concerned about aspiration and was thinking about jejunostomy tube. Consultation Date/Type/Reason Admit Date/Time Apr 11, 2017 at 11:28 Initial Consult Date 05/01/17 Type of Consultation: id Referring Provider: NINA MACIEL DO 24 HR Interval Summary Constitutional: improved, no complaints Exam/Review of Systems Vital Signs Vitals Vital Signs Date Time Temp Pulse Resp B/P Pulse Ox O2 Delivery O2 Flow Rate FiO2 05/11/17 12:14 73 05/11/17 11:26 98.3 20 111/61 99 05/11/17 11:05 30 05/09/17 23:34 Bag Valve Mask Intake and Output 05/10/17 05/10/17 05/11/17 15:00 23:00 07:00 Intake Total 1200 ml 1240 ml Output Total 4000 ml Balance 1200 ml -2760 ml Exam Constitutional: alert, oriented, well developed Psych: nl mood/affect, no complaints Head: atraumatic, normocephalic Eyes: EOMI, PERRL, nl conjunctiva, nl lids, nl sclera ENMT: nl external ears & nose, nl lips & teeth, nl nasal mucosa & septum Neck: non-tender, supple Respiratory: clear to auscultation, normal air movement Cardiovascular: nl pulses, regular rate and rhythm Gastrointestinal: nl liver, spleen, non-tender, soft Musculoskeletal: nl extremities to inspection, nl gait and stance Extremities: normal pulses Neurological: [employer] COMP[employer] CLAIMS EX[employer]ER II-XII intact, nl mental status, nl speech, nl strength Skin: nl turgor, No rash or lesions Lymph: nl lymph nodes Results Result Diagram: 05/11/17 0600 05/11/17 0600 Results 24 hrs Laboratory Tests Test 05/10/17 14:22 05/10/17 17:42 05/11/17 00:36 05/11/17 06:00 Hemoglobin 7.9 L 7.7 L Hematocrit 24.2 L 23.5 L Bedside Glucose 180 171 White Blood Count 19.0 #H Red Blood Count 2.53 L Mean Corpuscular Volume 92.9 Mean Corpuscular Hemoglobin 30.4 Mean Corpuscular Hemoglobin Concent 32.8 Red Cell Distribution Width 19.6 H Platelet Count 196 # Mean Platelet Volume 13.7 H Neutrophils % 91.6 H Lymphocytes % 3.6 L Monocytes % 2.8 Eosinophils % 0.1 Basophils % 0.2 Nucleated Red Blood Cells % 0.0 Neutrophils # 17.4 H Lymphocytes # 0.7 L Monocytes # 0.5 Eosinophils # 0.0 Basophils # 0.0 Nucleated Red Blood Cells # 0.0 Sodium Level 139 Potassium Level 4.0 Chloride Level 99 Carbon Dioxide Level 29 Anion Gap 15 Blood Urea Nitrogen 62 H Creatinine 1.75 H Glucose Level 138 Calcium Level 8.3 L Phosphorus Level 3.2 Magnesium Level 2.0 Test 05/11/17 06:11 05/11/17 12:20 Bedside Glucose 150 179 Medications Medications Current Medications Aspirin (Aspirin) 325 mg DAILY NGT Last administered on 04/30/17 08:43; Admin Dose 325 MG; Start 04/12/17 at 09:00; Status Future Hold Metoprolol Tartrate (Lopressor) 5 mg Q4H PRN IV HR>110 Hold SBP<110 Last administered on 04/20/17 17:36; Admin Dose 5 MG; Start 04/11/17 at 13:30 Miscellaneous Information 1 ea NOTE XX ; Start 04/11/17 at 16:30 Glucose (Glutose) 15 gm Q15M PRN PO DECREASED GLUCOSE Last administered on 05/07 03:27; Admin Dose 15 GM; Start 04/11/17 at 16:30 Glucose (Glutose) 22.5 gm Q15M PRN PO DECREASED GLUCOSE; Start 04/11/17 at 16: 30 Dextrose (D50w Syringe) 25 ml Q15M PRN IV DECREASED GLUCOSE Last administered on 04/12/17 23:56; Admin Dose 25 ML; Start 04/11/17 at 16:30 Dextrose (D50w Syringe) 50 ml Q15M PRN IV DECREASED GLUCOSE; Start 04/11/17 at 16:30 Glucagon (Glucagen) 1 mg Q15M PRN IM DECREASED GLUCOSE; Start 04/11/17 at 16:30 Glucose (Glutose) 15 gm Q15M PRN BUCCAL DECREASED GLUCOSE; Start 04/11/17 at 16 :30 Metoclopramide HCl (Reglan) 10 mg Q6 IV Last administered on 05/11/17 12:21; Admin Dose 10 MG; Start 04/12/17 at 18:00 Insulin Aspart (Novolog Insulin Pen) NOVOLOG *MILD* ALGORI... Q6H SC Last administered on 05/11/17 12:25; Admin Dose 1 UNIT; Start 04/15/17 at 00:00 IV Flush (NS 10 ml) 10 ml PRN PRN IV FLUSH LINE; Start 04/15/17 at 13:00 Amiodarone HCl (Cordarone) 200 mg BID GTB Last administered on 05/11/17 08:32 ; Admin Dose 200 MG; Start 04/16/17 at 13:00 Heparin Sodium (Porcine) (Heparin (5000 Units/0.5 ml)) 5,000 unit BID SC Last administered on 04/30/17 21:03; Admin Dose 5,000 UNIT; Start 04/18/17 at 16:22; Status Future Hold Citalopram Hydrobromide (Celexa) 20 mg DAILY NGT Last administered on 08:32; Admin Dose 20 MG; Start 04/19/17 at 09:00 Hydralazine HCl (Apresoline) 20 mg Q6H PRN IV sbp ABOVE 160 Last administered on 05/07/17 12:23; Admin Dose 20 MG; Start 04/18/17 at 18:30 Chlorhexidine Gluconate (Peridex) 15 ml BID MT Last administered on 05/11/17 08:31; Admin Dose 15 ML; Start 04/22/17 at 21:00 Vitamin A/Vitamin D (Vitamin A & D Oint) 1 applic TID TOP Last administered on 05/11/17 12:30; Admin Dose 1 APPLIC; Start 04/22/17 at 21:00 Vitamin A/Vitamin D (Vitamin A & D Oint) 1 applic TID PRN TOP DRYNESS Last administered on 04/22/17 15:29; Admin Dose 1 APPLIC; Start 04/22/17 at 15:00 Acetaminophen/ Hydrocodone Bitart (Sunset (5/325)) 1 tab Q6H GTB Last administered on 05/11/17 09:50; Admin Dose 1 TAB; Start 04/22/17 at 21:30 Spironolactone (Aldactone) 25 mg DAILY NGT Last administered on 05/11/17 08:32 ; Admin Dose 25 MG; Start 04/25/17 at 19:00; Status Future hold Diltiazem HCl (Cardizem Iv) 5 mg Q1H PRN IV HEART RATE GREATER THAN 120 Last administered on 04/29/17 06:17; Admin Dose 5 MG; Start 04/29/17 at 05:00 Metronidazole 500 mg 500 mg Q8 GTB Last administered on 05/11/17 06:13; Admin Dose 500 MG; Start 04/30/17 at 22:00 Sodium Chloride 1,000 ml @ 0 mls/hr Q0M IV Last administered on 05/01/17 03: 00; Admin Dose 1,000 MLS/HR; Start 05/01/17 at 03:00 Sodium Chloride (NS) 1,000 ml @ 0 mls/hr Q0M IV Last administered on 04:00; Admin Dose 1,000 MLS/HR; Start 05/01/17 at 03:30 Pantoprazole 40 mg 40 mg BID@06,18 IV Last administered on 05/11/17 06:12; Admin Dose 40 MG; Start 05/02/17 at 15:00 Diltiazem HCl (Cardizem-D5W 125 Mg/125 ml Drip) 125 ml @ 5 mls/hr TITRATE IV Last administered on 05/02/17 19:11; Admin Dose 5 MLS/HR; Start 05/02/17 at 19: 00 Valacyclovir HCl (Valtrex) 1,000 mg DAILY GTB Last administered on 05/11/17 08 :32; Admin Dose 1,000 MG; Start 05/06/17 at 09:00 Metoprolol Tartrate (Lopressor) 25 mg QID GTB Last administered on 05/11/17 12 :22; Admin Dose 25 MG; Start 05/07/17 at 09:00 Furosemide 40 mg 40 mg Q12 IV Last administered on 05/11/17 08:32; Admin Dose 40 MG; Start 05/08/17 at 09:00 Cefepime HCl (Maxipime 1gm/50 ml (Pmx)) 50 ml @ 100 mls/hr Q24H IVPB Last administered on 05/10/17 17:49; Admin Dose 100 MLS/HR; Start 05/08/17 at 18:00 Hydrocortisone (Solu-Cortef) 50 mg BID IV Last administered on 05/11/17 08:31 ; Admin Dose 50 MG; Start 05/10/17 at 21:00 ALYSSA THOMPSON MD May 11, 2017 13:40
--- NOTE | 2017-05-11 15:07 | RADRPT ---
PROCEDURE: XR Chest. CLINICAL INDICATION: Shortness of breath. Possible pneumonia TECHNIQUE: A single portable view of the chest was obtained. COMPARISON: 04/30/2017 FINDINGS: A tracheostomy tube is seen in satisfactory position. The aorta is tortuous and atherosclerotic. T he cardiomediastinal silhouette is otherwise within normal limits. Prominent interstitial markings a re seen. No dense consolidation or pleural effusion is seen. The soft tissues and osseous structure s demonstrate benign age related senescent changes. IMPRESSION: 1. Interval placement of a tracheostomy tube. 2. Diffuse interstitial markings. RPTAT: HPNM Physician Roby Date Time Electronically viewed and signed by Jacky Steele Physician on 05/11/2017 15:06 /
--- NOTE | 2017-05-11 15:24 | PN ---
Date/Time of Note Date/Time of Note DATE: 05/11/17 TIME: 15:17 Assessment/Plan Lines/Catheters IV Catheter Type (from [facility]): carlito Latif in Place (from [facility]): Yes Assessment/Plan Chief Complaint/Hosp Course 1. Cholelithiasis ? cholecystitis: Ct abd: sludge and small stones in the gallbladder. No gallbladder wall thickening is noted with some pericholecystic fluid is present. Patient off pressors; GT/OGT no output; HIDA positive; IR drain placement cancelled by radiologist since US without evidence of infection. Therefore, Dr. Guadalupe believes the HIDA is false positive. Tolerating tube feeds; no abdominal pain/discomfort; LFT's increased, bili nl (s/p code with blood loss); +bowel function -No surgical intervention required at this time but will follow closely 2. Pneumonia: Recurrent; no fevers; reintubated; less secretion sputum cx: PSEUDOMONAS AERUGINOSA, K PNEUMO ESBL, NASRIN GLABRATA; appears comfortable -pulmonary toilet -abx per ID 3. Vent dependent respiratory failure: 2/2 aspiration PNA+ CHF;reintubated and extubated, coded 04/21 and 05/01; currently reintubated -as above 4. Septic shock: resolved -on abx -supportive 5. Uncontrolled Afib: s/p amiodarone drip, on oral amiodarone; episodes of Afib Now SR -medical optimization 6. Elevated troponin:NSTEMI; septic shock/demand ischemia -trend 7. Leukocytosis with lactic acidosis: 2nd Fungemia + pneumonia + steroids vs. other -abx, antifungals -judicious fluid management -supportive measures 8. KEYONNA: likely 2/2 septic shock; s/p code; HD yesterday; good urine output; cr improving -judicious fluid management -avoid nephrotoxic agents 9. CHF: BNP elevated -judicious fluid management -medical optimization 10. Adrenal Insufficiency s/p steroids 11. Hypocalcemia with hypoalbuminemia -optimize nutrition 12. Hypothyroidism -Synthroid 13. Macrocytic anemia: chronic vs. dilutional vs. acute bleed vs. b12/folate deficiency;h/h lower -monitor -transfuse as needed 14. Thrombocytosis: 2/2 inflammatory vs. drug induced vs. other -monitor -bleeding precautions -supportive 15. Hypoalbuminemia: 2/2 malnutrition +/- inflammation; decreased; tolerating tf ; -nutrition optimization -as above 16. Encephalopathy: 2/2 toxic metabolic vs. anoxic injury; CT: No acute intracranial hemorrhage or mass effect. Mild chronic microvascular disease and intracranial atherosclerosis; EEG shows no seizure activity -supportive 17. Bilateral upper extremity edema: likely 2/2 decreased movement vs. thrombosis; initial doppler negative, repeat doppler left arm (+) Thrombus -elevate extremities -supportive 18. Oral lesions Thank you, Problems: Exam/Review of Systems Vital Signs Vitals Vital Signs Date Time Temp Pulse Resp B/P Pulse Ox O2 Delivery O2 Flow Rate FiO2 05/11/17 13:10 72 17 100 30 05/11/17 11:26 98.3 111/61 05/09/17 23:34 Bag Valve Mask Intake and Output 05/10/17 05/10/17 05/11/17 15:00 23:00 07:00 Intake Total 1200 ml 1240 ml Output Total 4000 ml Balance 1200 ml -2760 ml Results Result Diagram: 05/11/17 0600 05/11/17 0600 PATRICK QUINTERO MD May 11, 2017 15:24
[2017-05-11] MEDS: CEFEPIME 1GM/50 ML (PMX) 50 ML IVPB SCH (17:33)
[2017-05-12] VITALS (24 sets, daily range): BP systolic 111–145; BP diastolic 57–69; PULSE 69–77; RESP 16–20
[2017-05-12] MEDS: METOCLOPRAMIDE 10 MG INJ IV SCH ×4 (00:11→18:00)
[2017-05-12] MEDS: INSULIN ASPART [NOVOLOG] 3 ML PEN SC SCH ×4 (00:32→18:08)
[2017-05-12] MEDS: LEVALBUTEROL (HFA) 15 GM INHALER INH SCH ×4 (01:51→19:48)
--- NOTE | 2017-05-12 05:32 | PN ---
DATE: 05/11/2017 SUBJECTIVE DATA: The patient is currently receiving hemodialysis. No other events noted. No hemoptysis, hematemesis, hematochezia. OBJECTIVE DATA: VITAL SIGNS: Blood pressure is 103/56, respirations 20, pulse 63, temperature 98.4. I and O: 1900 in and 500 out. HEENT: Head is normocephalic. NECK: Supple. HEART: Regular rate. LUNGS: Diminished breath sounds at the base. ABDOMEN: Soft, nontender to palpation. No guarding. EXTREMITIES: Extremities negative for clubbing, cyanosis. Positive edema. SKIN: No rashes. MUSCULOSKELETAL: No joint effusion. NEUROLOGIC: No change in exam. MEDICATIONS: Patient medications have been reviewed. LABORATORY AND DIAGNOSTIC DATA: Laboratory data shows sodium 139, potassium 4.0, chloride 99, BUN 62, creatinine 1.75. White count 19.0, hemoglobin 7.7, hematocrit 23.5, platelet count is 196. ASSESSMENT AND PLAN: 1. Ventilatory-dependent respiratory failure. Vent settings reviewed. ABGs reviewed. Continue to monitor. Follow up with Pulmonary. 2. History of throat cancer. The patient was seen by ENT, Dr. Carpio and greatly appreciated his help. Recommendation is to continue current treatment plan in the setting of trach change which should be done over a scope or tube exchanger. Otherwise continue to monitor. 3. Tracheomalacia. Continue current medical management. Follow up with ENT. 4. Nonoliguric acute kidney injury, etiology secondary to acute tubular necrosis. The patient is currently dialysis dependent. Will continue intermittent dialysis for volume removal and clearance. 5. Hypokalemia, resolved. 6. Sepsis status post shock secondary to aspiration pneumonia fungemia. The patient remains on broad-spectrum antibiotics and antifungals. Cultures have been reviewed. Follow up with Infectious Disease. 7. Volume overload. Continue ultrafiltration dialysis. 8. Acute renal insufficiency. Continue current steroid regimen. Appreciate Endocrine's evaluation. 9. Acute encephalopathy, etiology is toxic metabolic. Continue to monitor. 10. Hypothyroidism. Continue Synthroid. 11. Anemia with episode of gastrointestinal bleed. The patient is status post EGD with cauterization of fundal bleed. Continue to monitor H and H levels. Will continue intermittent Epogen. 12. Mineral bone disorder. Monitor calcium plus levels. 13. Heart failure. Continue current medical management. 14. Leukocytosis, in part due to steroids and infection. Slowly improving. Continue to monitor. 15. Left upper extremity deep vein thrombosis. The patient's antiplatelets on hold due to recent GI bleed. 16. Dysphagia. Continue tube feeding. 17. Arrhythmia. Continue medical management. 18. Cholelithiasis. 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 The patient has been evaluated by Neurology. 20. Gastrointestinal and deep venous thrombosis prophylaxis. Dictated By: Abebe Valderrama DO /marquita/jalen /Document#: [id number]
[2017-05-12] MEDS: metroNIDAZOLE 500 MG TAB GTB SCH ×3 (05:39→22:08)
[2017-05-12] MEDS: LEVOTHYROXINE 75 MCG TAB GTB SCH (05:39)
[2017-05-12] MEDS: HYDROCODONE/APAP (5/325) TAB GTB SCH ×4 (05:39→22:12)
[2017-05-12] MEDS: PANTOPRAZOLE 40 MG INJ IV SCH ×2 (05:39→18:00)
[2017-05-12 06:24] LABS: BASOPHILS % 0.1 % (0.0-2.0); EOSINOPHILS % 0.1 % (0.0-7.0); HEMATOCRIT 24.9 % (37.0-47.0); HEMOGLOBIN 7.9 g/dl (12.0-16.0); LYMPHOCYTES # 0.7 10^3/ul (0.8-2.9); LYMPHOCYTES % 3.6 % (15.0-51.0); MEAN CORPUSCULAR HEMOGLOBIN 29.6 pg (29.0-33.0); MEAN CORPUSCULAR HGB CONC 31.7 g/dl (32.0-37.0); MEAN CORPUSCULAR VOLUME 93.3 fl (82.0-101.0); MEAN PLATELET VOLUME 12.9 fl (7.4-10.4); MONOCYTE # 0.6 10^3/ul (0.3-0.9); MONOCYTES % 3.1 % (0.0-11.0); NEUTROPHIL # 17.8 10^3/ul (1.6-7.5); NEUTROPHILS % 91.3 % (39.0-77.0); PLATELET COUNT 230 10^3/UL (140-415); RED BLOOD COUNT 2.67 10^6/ul (4.20-5.40); RED CELL DISTRIBUTION WIDTH 19.7 % (11.5-14.5); WHITE BLOOD COUNT 19.5 10^3/ul (4.8-10.8)
[2017-05-12 07:15] LABS: CALCIUM 8.3 mg/dl (8.4-10.2); CREATININE 1.62 mg/dl (0.44-1.00); POTASSIUM 3.8 mmol/L (3.5-5.1)
[2017-05-12] MEDS: CHLORHEXIDINE GLUCONATE 15 ML UD CUP MT SCH ×2 (09:29→22:10)
[2017-05-12] MEDS: VALACYCLOVIR 500 MG TAB GTB SCH (09:31)
[2017-05-12] MEDS: METOPROLOL 25 MG TAB GTB SCH ×4 (09:31→22:09)
[2017-05-12] MEDS: VITAMIN A & D 5 GM OINT PACKET TOP SCH ×3 (09:31→22:10)
[2017-05-12] MEDS: CITALOPRAM 20 MG TAB NGT SCH (09:31)
[2017-05-12] MEDS: FUROSEMIDE 40 MG INJ IV SCH ×2 (09:32→22:10)
[2017-05-12] MEDS: HYDROCORTISONE 100 MG INJ IV SCH ×2 (09:32→22:10)
[2017-05-12] MEDS: AMIODARONE 200 MG TAB GTB SCH ×2 (09:33→22:09)
[2017-05-12] MEDS: SPIRONOLACTONE 25 MG TAB NGT SCH (09:33)
--- NOTE | 2017-05-12 09:33 | PN ---
Date/Time of Note Date/Time of Note DATE: 05/12/17 TIME: 09:30 Assessment/Plan Lines/Catheters IV Catheter Type (from [facility]): Amrit cath Latif in Place (from [facility]): Yes Assessment/Plan Chief Complaint/Hosp Course 1. Cholelithiasis ? cholecystitis: Ct abd: sludge and small stones in the gallbladder. No gallbladder wall thickening is noted with some pericholecystic fluid is present. Patient off pressors; GT/OGT no output; HIDA positive; IR drain placement cancelled by radiologist since US without evidence of infection. Therefore, Dr. Guadalupe believes the HIDA is false positive. Tolerating tube feeds; no abdominal pain/discomfort; LFT's increased, bili nl (s/p code with blood loss); +bowel function -No surgical intervention required at this time 2. Pneumonia: Recurrent; no fevers; reintubated; less secretion sputum cx: PSEUDOMONAS AERUGINOSA, K PNEUMO ESBL, NASRIN GLABRATA; appears comfortable -pulmonary toilet -abx per ID 3. Vent dependent respiratory failure: 2/2 aspiration PNA+ CHF;reintubated and extubated, coded 04/21 and 05/01; currently reintubated -as above 4. Septic shock: resolved -on abx -supportive 5. Uncontrolled Afib: s/p amiodarone drip, on oral amiodarone; episodes of Afib Now SR -medical optimization 6. Elevated troponin:NSTEMI; septic shock/demand ischemia -trend 7. Leukocytosis with lactic acidosis: 2/2 pneumonia vs. steroids vs.fungemia vs other (urine, repeat blood cultures negative) -abx, antifungals -judicious fluid management -supportive measures 8. KEYONNA: likely 2/2 septic shock; s/p code; HD yesterday; good urine output; cr improving -judicious fluid management -avoid nephrotoxic agents 9. CHF: BNP elevated -judicious fluid management -medical optimization 10. Adrenal Insufficiency -solucortef 11. Hypomagnesemia: normalized 12. Hypothyroidism; tsh elevated -on synthroid 13. Macrocytic anemia: chronic vs. dilutional vs. acute bleed vs. b12/folate deficiency;h/h lower -monitor -Transfuse as needed 14. Transaminitis: likely 2/2 septic shock vs. cholecystitis;normalized -trend, monitor 15. Diarrhea: 2/2 abx vs. enteritis: resolved; tolerating tf 16. Thrombocytosis: 2/2 inflammatory vs. drug induced vs. other -monitor -bleeding precautions -supportive 17. Encephalopathy: 2/2 toxic metabolic vs. anoxic injury; CT: No acute intracranial hemorrhage or mass effect. Mild chronic microvascular disease and intracranial atherosclerosis; EEG shows no seizure activity -supportive 18. Bilateral upper extremity edema: likely 2/2 decreased movement vs. thrombosis; initial doppler negative, repeat doppler left arm (+) Thrombus -elevate extremities -supportive 19. Hypoalbuminemia: 2/2 malnutrition +/- inflammation; decreased; tolerating tf ; -nutrition optimization -as above 20 Hypernatremia: normalized -judicious fluid management 21. Hypocalcemia with hypoalbuminemia -optimize nutrition 22. Fungemia -antifungals 23. Hyperkalemia: normalized -optimize lytes 24. Oral lesions: improving Patient seen and examined in collaboration with Dr. Justus Antonio Problems: Subjective 24 Hr Interval Summary More awake and responsive. Comfortable on vent. +bowel function. Tolerating tf. No abdominal pain/discomfort, sz, metzger, dizziness, sob, congested cough, n/v/d, dysuria, fevers, chills. HD over the weekend. Exam/Review of Systems Vital Signs Vitals Vital Signs Date Time Temp Pulse Resp B/P Pulse Ox O2 Delivery O2 Flow Rate FiO2 05/12/17 08:19 76 05/12/17 07:42 97.9 16 138/60 98 05/12/17 05:20 30 05/09/17 23:34 Bag Valve Mask Intake and Output 05/11/17 05/11/17 05/12/17 15:00 23:00 07:00 Intake Total 850 ml 870 ml Output Total 300 ml 700 ml Balance 550 ml 170 ml Exam Free Text/Dictation Constitutional: somnolent, appears comfortable Head: atraumatic, normocephalic Eyes: PERRL, nl lids, nl sclera ENMT: No mucosa pink and moist (pink and moist with healing perioral lesions/ dried blood) Neck: non-tender, supple, tracheostomy Respiratory: diminished, comfortable on vent Cardiovascular: nl pulses, regular rate and rhythm, NSR, Gastrointestinal: min distended, GT tubes site no erythema, no drainage, non tenderness, bowel sounds x 4 quads Genitourinary - Female: nl external genitalia Musculoskeletal: nl extremities to inspection Extremities: normal pulses, bilateral upper/lower extremity edema (min improvement) Neurological: responsive Skin: nl turgor, No rash or lesions Lymph: nl lymph nodes Results Result Diagram: 05/12/17 0543 05/12/17 0543 ADDISON FREGOSO NP May 12, 2017 09:33
[2017-05-12] MEDS: COLISTIMETHATE (25 MG/ML INHAL SYG) NEB SCH ×2 (10:14→19:58)
--- NOTE | 2017-05-12 10:53 | CONS ---
Date/Time of Note Date/Time of Note DATE: 05/12/17 TIME: 10:36 Assessment/Plan Assessment/Plan Additional Assessment/Plan Spoke to Mr Pee this morning. He is still very hopeful that his will make a complete recovery. " She has been like this before and recovered". Consultation Date/Type/Reason Admit Date/Time Apr 11, 2017 at 11:28 Initial Consult Date 05/01/17 Type of Consultation: Palliative Care Referring Provider: NINA MACIEL DO Exam/Review of Systems Vital Signs Vitals Vital Signs Date Time Temp Pulse Resp B/P Pulse Ox O2 Delivery O2 Flow Rate FiO2 05/12/17 09:15 65 16 100 30 05/12/17 07:42 97.9 138/60 05/09/17 23:34 Bag Valve Mask Intake and Output 05/11/17 05/11/17 05/12/17 15:00 23:00 07:00 Intake Total 850 ml 870 ml Output Total 300 ml 700 ml Balance 550 ml 170 ml Results Result Diagram: 05/12/17 0543 05/12/17 0543 Results 24 hrs Laboratory Tests Test 05/11/17 12:20 05/11/17 17:29 05/12/17 00:11 05/12/17 05:43 Bedside Glucose 179 190 160 White Blood Count 19.5 H Red Blood Count 2.67 L Hemoglobin 7.9 L Hematocrit 24.9 L Mean Corpuscular Volume 93.3 Mean Corpuscular Hemoglobin 29.6 Mean Corpuscular Hemoglobin Concent 31.7 L Red Cell Distribution Width 19.7 H Platelet Count 230 Mean Platelet Volume 12.9 H Neutrophils % 91.3 H Lymphocytes % 3.6 L Monocytes % 3.1 Eosinophils % 0.1 Basophils % 0.1 Nucleated Red Blood Cells % 0.0 Neutrophils # 17.8 H Lymphocytes # 0.7 L Monocytes # 0.6 Eosinophils # 0.0 Basophils # 0.0 Nucleated Red Blood Cells # 0.0 Sodium Level 142 Potassium Level 3.8 Chloride Level 100 Carbon Dioxide Level 31 Anion Gap 15 Blood Urea Nitrogen 60 H Creatinine 1.62 H Glucose Level 157 Calcium Level 8.3 L Phosphorus Level 3.0 Magnesium Level 2.0 Test 05/12/17 05:49 Bedside Glucose 175 Medications Medications Current Medications Aspirin (Aspirin) 325 mg DAILY NGT Last administered on 04/30/17t 08:43; Admin Dose 325 MG; Start 04/12/17 at 09:00; Status Future Hold Metoprolol Tartrate (Lopressor) 5 mg Q4H PRN IV HR>110 Hold SBP<110 Last administered on 04/20/17 17:36; Admin Dose 5 MG; Start 04/11/17 at 13:30 Miscellaneous Information 1 ea NOTE XX ; Start 04/11/17 at 16:30 Glucose (Glutose) 15 gm Q15M PRN PO DECREASED GLUCOSE Last administered on 05/07 03:27; Admin Dose 15 GM; Start 04/11/17 at 16:30 Glucose (Glutose) 22.5 gm Q15M PRN PO DECREASED GLUCOSE; Start 04/11/17 at 16: 30 Dextrose (D50w Syringe) 25 ml Q15M PRN IV DECREASED GLUCOSE Last administered on 04/12/17 23:56; Admin Dose 25 ML; Start 04/11/17 at 16:30 Dextrose (D50w Syringe) 50 ml Q15M PRN IV DECREASED GLUCOSE; Start 04/11/17 at 16:30 Glucagon (Glucagen) 1 mg Q15M PRN IM DECREASED GLUCOSE; Start 04/11/17 at 16:30 Glucose (Glutose) 15 gm Q15M PRN BUCCAL DECREASED GLUCOSE; Start 04/11/17 at 16 :30 Metoclopramide HCl (Reglan) 10 mg Q6 IV Last administered on 05/12/17 05:39; Admin Dose 10 MG; Start 04/12/17 at 18:00 Insulin Aspart (Novolog Insulin Pen) NOVOLOG *MILD* ALGORI... Q6H SC Last administered on 05/12/17 05:59; Admin Dose 1 UNIT; Start 04/15/17 at 00:00 IV Flush (NS 10 ml) 10 ml PRN PRN IV FLUSH LINE; Start 04/15/17 at 13:00 Amiodarone HCl (Cordarone) 200 mg BID GTB Last administered on 05/12/17 09:33 ; Admin Dose 200 MG; Start 04/16/17 at 13:00 Heparin Sodium (Porcine) (Heparin (5000 Units/0.5 ml)) 5,000 unit BID SC Last administered on 04/30/17 21:03; Admin Dose 5,000 UNIT; Start 04/18/17 at 16:22; Status Future Hold Citalopram Hydrobromide (Celexa) 20 mg DAILY NGT Last administered on 09:31; Admin Dose 20 MG; Start 04/19/17 at 09:00 Hydralazine HCl (Apresoline) 20 mg Q6H PRN IV sbp ABOVE 160 Last administered on 05/07/17 12:23; Admin Dose 20 MG; Start 04/18/17 at 18:30 Chlorhexidine Gluconate (Peridex) 15 ml BID MT Last administered on 05/12/17 09:29; Admin Dose 15 ML; Start 04/22/17 at 21:00 Vitamin A/Vitamin D (Vitamin A & D Oint) 1 applic TID TOP Last administered on 05/12/17 09:31; Admin Dose 1 APPLIC; Start 04/22/17 at 21:00 Vitamin A/Vitamin D (Vitamin A & D Oint) 1 applic TID PRN TOP DRYNESS Last administered on 04/22/17 15:29; Admin Dose 1 APPLIC; Start 04/22/17 at 15:00 Acetaminophen/ Hydrocodone Bitart ([place] (5/325)) 1 tab Q6H GTB Last administered on 05/12/17 09:30; Admin Dose 1 TAB; Start 04/22/17 at 21:30 Spironolactone (Aldactone) 25 mg DAILY NGT Last administered on 05/12/17 09:33 ; Admin Dose 25 MG; Start 04/25/17 at 19:00; Status Future hold Diltiazem HCl (Cardizem Iv) 5 mg Q1H PRN IV HEART RATE GREATER THAN 120 Last administered on 04/29/17 06:17; Admin Dose 5 MG; Start 04/29/17 at 05:00 Metronidazole 500 mg 500 mg Q8 GTB Last administered on 05/12/17 05:39; Admin Dose 500 MG; Start 04/30/17 at 22:00 Sodium Chloride 1,000 ml @ 0 mls/hr Q0M IV Last administered on 05/01/17 03: 00; Admin Dose 1,000 MLS/HR; Start 05/01/17 at 03:00 Sodium Chloride (NS) 1,000 ml @ 0 mls/hr Q0M IV Last administered on 04:00; Admin Dose 1,000 MLS/HR; Start 05/01/17 at 03:30 Pantoprazole 40 mg 40 mg BID@06,18 IV Last administered on 05/12/17 05:39; Admin Dose 40 MG; Start 05/02/17 at 15:00 Diltiazem HCl (Cardizem-D5W 125 Mg/125 ml Drip) 125 ml @ 5 mls/hr TITRATE IV Last administered on 05/02/17 19:11; Admin Dose 5 MLS/HR; Start 05/02/17 at 19: 00 Valacyclovir HCl (Valtrex) 1,000 mg DAILY GTB Last administered on 05/12/17 09 :31; Admin Dose 1,000 MG; Start 05/06/17 at 09:00 Metoprolol Tartrate (Lopressor) 25 mg QID GTB Last administered on 05/12/17 09 :31; Admin Dose 25 MG; Start 05/07/17 at 09:00 Furosemide 40 mg 40 mg Q12 IV Last administered on 05/12/17 09:32; Admin Dose 40 MG; Start 05/08/17 at 09:00 Cefepime HCl (Maxipime 1gm/50 ml (Pmx)) 50 ml @ 100 mls/hr Q24H IVPB Last administered on 05/11/17 17:33; Admin Dose 100 MLS/HR; Start 05/08/17 at 18:00 Hydrocortisone (Solu-Cortef) 50 mg BID IV Last administered on 05/12/17 09:32 ; Admin Dose 50 MG; Start 05/10/17 at 21:00 YVONNE ADAMS May 12, 2017 10:52
--- NOTE | 2017-05-12 11:14 | PN ---
DATE: 05/12/2017 SUBJECTIVE DATA: The patient remained stable. Had hemodialysis yesterday with 3 liters removed. No other events noted. OBJECTIVE DATA: VITAL SIGNS: Blood pressure is 138/67, respirations 16, pulse 73, temperature 97.9. Intake and output, patient had 2 liters in and 1.58 liters of urinary output, 3 liters removed from hemodialysis. HEENT: Head is normocephalic. NECK: Supple. HEART: Regular rate. LUNGS: Diminished breath sounds at the base. ABDOMEN: Soft, nontender to palpation. No rebound or guarding. EXTREMITIES: Negative for clubbing, cyanosis. Positive edema. DERMATOLOGIC: No rashes. MUSCULOSKELETAL: No joint effusion. NEUROLOGIC: No change in exam. MEDICATIONS: Reviewed. LABORATORY AND DIAGNOSTIC DATA: Sodium 142, potassium 3.8, BUN 62, creatinine 0.62. White count 19.5, hemoglobin 7.9, hematocrit 24.9, platelet count is 232,000. ASSESSMENT AND PLAN: 1. Ventilatory-dependent respiratory failure. Vent settings reviewed. ABGs reviewed. Follow up with Pulmonary. 2. Throat cancer. The patient is status post-ENT evaluation. Greatly appreciate help. Continue to monitor. 3. Tracheomalacia. Continue current medical management. Follow up with ENT. 4. Nonoliguric acute kidney injury is secondary to acute tubular necrosis. The patient is currently dialysis dependent. Continue intermittent dialysis. Monitor closely for signs of recovery. 5. Sepsis, status post-shock, secondary aspiration pneumonia fungemia. Continue broad-spectrum antibiotics, antifungal. 6. Volume overload. Continue current diuretic regimen. Ultrafiltration. 7. Adrenal insufficiency. Continue current steroid regimen. Follow up with endocrine. 8. Acute encephalopathy, etiology is toxic metabolic. Continue to monitor. 9. Hypothyroidism. Continue Synthroid. 10. Anemia with episode of gastrointestinal bleed. The patient is status post-esophagogastroduodenoscopy with cauterization of fundal bleed. To monitor hemoglobin and hematocrit levels. Continue intermittent Epogen. 11. Mineral bone disorder. Monitor calcium and phosphorus levels. 12. History of congestive heart failure. Continue current medical management. 13. Leukocytosis, in part due to steroids infection slowly improved. Continue to monitor. 14. Left upper extremity deep vein thrombosis. The patient's antiplatelets are on hold due to recent bleed. Will follow up with gastroenterology, if okay to resume anti-platelet. 15. [____] [____] G-tube feeding. 16. Arrhythmia. Continue medical management. 17. Cholelithiasis. 18. Neuropathy. 19. Gastrointestinal and deep venous thrombosis prophylaxis. Dictated By: Abebe Valderrama DO /[email or web address]/[email or web address] /Document#: [id number]
--- NOTE | 2017-05-12 12:53 | CONS ---
Date/Time of Note Date/Time of Note DATE: 05/12/17 TIME: 12:50 Assessment/Plan Assessment/Plan Additional Assessment/Plan Ventilator setting; AC of 16, tidal volume 500, PEEP of 5, 30% FiO2. Assessment and recommendations; 1. Patient admitted for bilateral pneumonia with interval improvement. 2. Chronic respiratory failure, status post redo tracheostomy. 3. Remote history of glossal cancer. 4. Acute renal failure, requiring intermittent hemodialysis. 5. Massive anasarca. 6. Mild pulmonary edema. 7. Anemia. 8. COPD. 9. Prolonged hospital stay over the last several months. Continue current treatment. Continue intermittent dialysis. When the patient has had significant reduction in anasarca the patient then can be weaned off from from ventilator. I did have a detailed discussion with the patient's as well as patient herself in the room at bedside. Consultation Date/Type/Reason Admit Date/Time Apr 11, 2017 at 11:28 Initial Consult Date 05/01/17 Type of Consultation: Pulmonary/critical care Referring Provider: NINA MACIEL DO 24 HR Interval Summary Free Text/Dictation Patient condition stable. Remains awake alert. Remains ventilator dependent. Has remained hemodynamically stable. General exam; elderly woman, on ventilator via tracheostomy, awake and alert. Currently in no distress. Exam/Review of Systems Vital Signs Vitals Vital Signs Date Time Temp Pulse Resp B/P Pulse Ox O2 Delivery O2 Flow Rate FiO2 05/12/17 12:25 77 05/12/17 11:53 98.3 16 127/69 100 05/12/17 11:30 30 05/09/17 23:34 Bag Valve Mask Intake and Output 05/11/17 05/11/17 05/12/17 15:00 23:00 07:00 Intake Total 850 ml 870 ml Output Total 300 ml 700 ml Balance 550 ml 170 ml Exam HEENT exam; supple neck, positive JVD. No lymphadenopathy. Midline trachea. No thyromegaly. Patient has tracheostomy in place with clean insertion site. Patient multiple carious teeth. There is mild excoriation of lips. Chest exam; diminished but clear breath sound. S1-S2 audible, no murmurs. Regular rhythm. Abdomen exam; soft, G-tube in place. Nontender. Bowel sounds audible. Extremity exam; 2+ anasarca. Patient does have multiple ecchymosis involving all 4 extremities. [employer] exam; patient is awake alert follows commands moves all 4 extremity's, still exhibiting generalized muscular weakness. Results Result Diagram: 05/12/1743 05/12/17 0543 Results 24 hrs Laboratory Tests Test 05/11/17 17:29 05/12/17 00:11 05/12/17 05:43 05/12/17 05:49 Bedside Glucose 190 160 175 White Blood Count 19.5 H Red Blood Count 2.67 L Hemoglobin 7.9 L Hematocrit 24.9 L Mean Corpuscular Volume 93.3 Mean Corpuscular Hemoglobin 29.6 Mean Corpuscular Hemoglobin Concent 31.7 L Red Cell Distribution Width 19.7 H Platelet Count 230 Mean Platelet Volume 12.9 H Neutrophils % 91.3 H Lymphocytes % 3.6 L Monocytes % 3.1 Eosinophils % 0.1 Basophils % 0.1 Nucleated Red Blood Cells % 0.0 Neutrophils # 17.8 H Lymphocytes # 0.7 L Monocytes # 0.6 Eosinophils # 0.0 Basophils # 0.0 Nucleated Red Blood Cells # 0.0 Sodium Level 142 Potassium Level 3.8 Chloride Level 100 Carbon Dioxide Level 31 Anion Gap 15 Blood Urea Nitrogen 60 H Creatinine 1.62 H Glucose Level 157 Calcium Level 8.3 L Phosphorus Level 3.0 Magnesium Level 2.0 Test 05/12/17 12:04 Bedside Glucose 170 Medications Medications Current Medications Aspirin (Aspirin) 325 mg DAILY NGT Last administered on 04/30/17 08:43; Admin Dose 325 MG; Start 04/12/17 at 09:00; Status Future Hold Metoprolol Tartrate (Lopressor) 5 mg Q4H PRN IV HR>110 Hold SBP<110 Last administered on 04/20/17 17:36; Admin Dose 5 MG; Start 04/11/17 at 13:30 Miscellaneous Information 1 ea NOTE XX ; Start 04/11/17 at 16:30 Glucose (Glutose) 15 gm Q15M PRN PO DECREASED GLUCOSE Last administered on 05/07 03:27; Admin Dose 15 GM; Start 04/11/17 at 16:30 Glucose (Glutose) 22.5 gm Q15M PRN PO DECREASED GLUCOSE; Start 04/11/17 at 16: 30 Dextrose (D50w Syringe) 25 ml Q15M PRN IV DECREASED GLUCOSE Last administered on 04/12/17 23:56; Admin Dose 25 ML; Start 04/11/17 at 16:30 Dextrose (D50w Syringe) 50 ml Q15M PRN IV DECREASED GLUCOSE; Start 04/11/17 at 16:30 Glucagon (Glucagen) 1 mg Q15M PRN IM DECREASED GLUCOSE; Start 04/11/17 at 16:30 Glucose (Glutose) 15 gm Q15M PRN BUCCAL DECREASED GLUCOSE; Start 04/11/17 at 16 :30 Metoclopramide HCl (Reglan) 10 mg Q6 IV Last administered on 05/12/17 12:32; Admin Dose 10 MG; Start 04/12/17 at 18:00 Insulin Aspart (Novolog Insulin Pen) NOVOLOG *MILD* ALGORI... Q6H SC Last administered on 05/12/17 12:23; Admin Dose 1 UNIT; Start 04/15/17 at 00:00 IV Flush (NS 10 ml) 10 ml PRN PRN IV FLUSH LINE; Start 04/15/17 at 13:00 Amiodarone HCl (Cordarone) 200 mg BID GTB Last administered on 05/12/17 09:33 ; Admin Dose 200 MG; Start 04/16/17 at 13:00 Heparin Sodium (Porcine) (Heparin (5000 Units/0.5 ml)) 5,000 unit BID SC Last administered on 04/30/17 21:03; Admin Dose 5,000 UNIT; Start 04/18/17 at 16:22; Status Future Hold Citalopram Hydrobromide (Celexa) 20 mg DAILY NGT Last administered on 09:31; Admin Dose 20 MG; Start 04/19/17 at 09:00 Hydralazine HCl (Apresoline) 20 mg Q6H PRN IV sbp ABOVE 160 Last administered on 05/07/17 12:23; Admin Dose 20 MG; Start 04/18/17 at 18:30 Chlorhexidine Gluconate (Peridex) 15 ml BID MT Last administered on 05/12/17 09:29; Admin Dose 15 ML; Start 04/22/17 at 21:00 Vitamin A/Vitamin D (Vitamin A & D Oint) 1 applic TID TOP Last administered on 05/12/17 12:32; Admin Dose 1 APPLIC; Start 04/22/17 at 21:00 Vitamin A/Vitamin D (Vitamin A & D Oint) 1 applic TID PRN TOP DRYNESS Last administered on 04/22/17 15:29; Admin Dose 1 APPLIC; Start 04/22/17 at 15:00 Acetaminophen/ Hydrocodone Bitart ([place] (5/325)) 1 tab Q6H GTB Last administered on 05/12/17 09:30; Admin Dose 1 TAB; Start 04/22/17 at 21:30 Spironolactone (Aldactone) 25 mg DAILY NGT Last administered on 05/12/17 09:33 ; Admin Dose 25 MG; Start 04/25/17 at 19:00; Status Future hold Diltiazem HCl (Cardizem Iv) 5 mg Q1H PRN IV HEART RATE GREATER THAN 120 Last administered on 04/29/17 06:17; Admin Dose 5 MG; Start 04/29/17 at 05:00 Metronidazole 500 mg 500 mg Q8 GTB Last administered on 05/12/17 05:39; Admin Dose 500 MG; Start 04/30/17 at 22:00 Sodium Chloride 1,000 ml @ 0 mls/hr Q0M IV Last administered on 05/01/17 03: 00; Admin Dose 1,000 MLS/HR; Start 05/01/17 at 03:00 Sodium Chloride (NS) 1,000 ml @ 0 mls/hr Q0M IV Last administered on 04:00; Admin Dose 1,000 MLS/HR; Start 05/01/17 at 03:30 Pantoprazole 40 mg 40 mg BID@06,18 IV Last administered on 05/12/17 05:39; Admin Dose 40 MG; Start 05/02/17 at 15:00 Diltiazem HCl (Cardizem-D5W 125 Mg/125 ml Drip) 125 ml @ 5 mls/hr TITRATE IV Last administered on 05/02/17 19:11; Admin Dose 5 MLS/HR; Start 05/02/17 at 19: 00 Valacyclovir HCl (Valtrex) 1,000 mg DAILY GTB Last administered on 05/12/17 09 :31; Admin Dose 1,000 MG; Start 05/06/17 at 09:00 Metoprolol Tartrate (Lopressor) 25 mg QID GTB Last administered on 05/12/17 12 :32; Admin Dose 25 MG; Start 05/07/17 at 09:00 Furosemide 40 mg 40 mg Q12 IV Last administered on 05/12/17 09:32; Admin Dose 40 MG; Start 05/08/17 at 09:00 Cefepime HCl (Maxipime 1gm/50 ml (Pmx)) 50 ml @ 100 mls/hr Q24H IVPB Last administered on 05/11/17 17:33; Admin Dose 100 MLS/HR; Start 05/08/17 at 18:00 Hydrocortisone (Solu-Cortef) 50 mg BID IV Last administered on 05/12/17 09:32 ; Admin Dose 50 MG; Start 05/10/17 at 21:00 EMILIANO HICKS May 12, 2017 12:53
--- NOTE | 2017-05-12 14:35 | CONS ---
Date/Time of Note Date/Time of Note DATE: 05/12/17 TIME: 14:29 Assessment/Plan Assessment/Plan Chief Complaint/Hosp Course ID PROGRESS NOTE CURRENT ABX=> Flagyl, Valtrex, + Cefepime #5 + Colistin INH #4 Cancidas -> DC 05/10 Merrem -> DC'd 05/08 Merrem #14 total -> DC'd 04/26=> Restarted 24H INTERVAL SUMMARY/HOSPITAL COURSE * Alert and responsive, facial/lip edema has improved, lip lesions still healing. No fevers, WBC remains elevated -> suspect partial IV steroids demargination * 05/11/17 CXR: Prominent interstitial markings are seen. No dense consolidation or pleural effusion is seen. * 05/06 SPUTUM RESPIRATORY CULTURE Final Organism 1 PSEUDOMONAS AERUGINOSA QUANTITY 2+ P.AERUG M.I.C. RX --------- --- AMIKACIN <=2 S AZTREONAM R CEFEPIME 8 S CEFTAZIDIME 8 S CIPROFLOXACIN I GENTAMICIN <=1 S IMIPENEM >=16 R LEVOFLOXACIN >=8 R TOBRAMYCIN <=1 S PIPERACILLIN/TAZOBACTAM 32 S PHYSICAL EXAMINATION: GENERAL: 66 yo F, stable on the Vent HEENT: Atraumatic, (+)Lip crusting lesions healing NECK: (+)Trach in place secure to VENT CHEST: Rise symmetrical w/coarse BS, scattered rales/rhonchi ABDOMEN: Soft, peg EXTREMITIES: Warm, moves extremities ID ASSESSMENT: 66 yo F w/PMHx tongue cancer, chronic trach re-admit [facility] from [facility] with: 1. s/p Acute severe sepsis/shock on admission w/(+)fever, tachycardia, lactic acidosis, leukocytosis, (+)troponin leak = RESOLVING * Leukocytosis persisting -> IV Steroids onboard * Fungemia => repeat BCx negative 2. Anasarca w/increased facial edema/bilateral lip edema w/resolving HSV lip lesions resolving * -- facial edema is worse due to patient preference while sitting up to lean her head forward w/neck flexion over her trach/trach-tie -- this position compromised jugular venous return. 3. Acute respiratory failure = recurrent issue s/p intubation x3rd episode w/ extubation, now with Trach secure to Vent 3. HCAP=> Recurrent Aspiration PNA post emesis // Hx of GNR tracheobronchitis * Sputum 04/21/17 (+)Yeast * Sputum 05/06/17 (+)PSAR 4. Acute CHF w/elevated BNP 8000 in setting tachycardia, sepsis, pulmonary edema on CXR 5. s/p Nausea w/emesis on admission -> RESOLVED * Query: DM Autonomic Gastroparesis * GERD 6. Cholelithiasis w/dilated CBD->HIDA scan (+cholecystitis 04/12/17=> s/p Mansi Drain 04/17/17, no surgery per GI 7. Acute renal failure = started on HD 8. Dysphagia sp PEG placement 9. Paroxysmal Afib 10. NSTEMI in setting sepsis, tachycardia, acute hypoxic respiratory failure, acute CHF exacerbation 11. Elevated glucose - iatrogenic diabetes while on IV steroids 12. Leukocytosis = partial steroids demargination 13. Lip lesions => consistent w/herpes simplex virus outbreak -> On Valtrex HEALING 14. s/p GIB associates with Acute on chronic anemia secondary to AVM ==> stopped , status post EGD on May 02 with injection of epinephrine 15. Recent (+)C.Diff on 03/07/16 (treated) w/(-)C.Diff 03/20/17 (-) MRSA Nares screen (04/03/17) INVASIVES: Trach, PEG, FC, R-FEM Amrit (05/04/17) ABX ALLERGY: Iodine CURRENT ABX: => Flagyl, Valtrex, + Cefepime #5 + Colistin INH #4 Cancidas-> DC 05/10 Merrem -> DC'd 05/08 Merrem #14 total -> DC'd 04/26=> Restarted ID PLAN: 1. Continue Valtrex until lip lesions healed, continue empiric Flagyl while on ABX for PSAR PNA * Continue current ABX --PSAR is sensitive to Cefepime + Colistin INH 2. Hx of C.Diff-> Keep on Flagyl while PSAR Trach decolonization ABX completed 3. Added Nystain PO oral swish spit + Vit B/C complex -- lip/mouth lesions healing . . Problems: Consultation Date/Type/Reason Admit Date/Time Apr 11, 2017 at 11:28 Initial Consult Date 04/11/17 Type of Consultation: ID Referring Provider: NINA MACIEL DO Exam/Review of Systems Vital Signs Vitals Vital Signs Date Time Temp Pulse Resp B/P Pulse Ox O2 Delivery O2 Flow Rate FiO2 05/12/17 13:29 61 17 99 30 05/12/17 11:53 98.3 127/69 05/09/17 23:34 Bag Valve Mask Intake and Output 05/11/17 05/11/17 05/12/17 15:00 23:00 07:00 Intake Total 850 ml 870 ml Output Total 300 ml 700 ml Balance 550 ml 170 ml Results Result Diagram: 05/12/1743 05/12/1743 Results 24 hrs Laboratory Tests Test 05/11/17 17:29 05/12/17 00:11 05/12/17 05:43 05/12/17 05:49 Bedside Glucose 190 160 175 White Blood Count 19.5 H Red Blood Count 2.67 L Hemoglobin 7.9 L Hematocrit 24.9 L Mean Corpuscular Volume 93.3 Mean Corpuscular Hemoglobin 29.6 Mean Corpuscular Hemoglobin Concent 31.7 L Red Cell Distribution Width 19.7 H Platelet Count 230 Mean Platelet Volume 12.9 H Neutrophils % 91.3 H Lymphocytes % 3.6 L Monocytes % 3.1 Eosinophils % 0.1 Basophils % 0.1 Nucleated Red Blood Cells % 0.0 Neutrophils # 17.8 H Lymphocytes # 0.7 L Monocytes # 0.6 Eosinophils # 0.0 Basophils # 0.0 Nucleated Red Blood Cells # 0.0 Sodium Level 142 Potassium Level 3.8 Chloride Level 100 Carbon Dioxide Level 31 Anion Gap 15 Blood Urea Nitrogen 60 H Creatinine 1.62 H Glucose Level 157 Calcium Level 8.3 L Phosphorus Level 3.0 Magnesium Level 2.0 Test 05/12/17 12:04 Bedside Glucose 170 Medications Medications Current Medications Aspirin (Aspirin) 325 mg DAILY NGT Last administered on 04/30/17 08:43; Admin Dose 325 MG; Start 04/12/17 at 09:00; Status Future Hold Metoprolol Tartrate (Lopressor) 5 mg Q4H PRN IV HR>110 Hold SBP<110 Last administered on 04/20/17 17:36; Admin Dose 5 MG; Start 04/11/17 at 13:30 Miscellaneous Information 1 ea NOTE XX ; Start 04/11/17 at 16:30 Glucose (Glutose) 15 gm Q15M PRN PO DECREASED GLUCOSE Last administered on 05/07 03:27; Admin Dose 15 GM; Start 04/11/17 at 16:30 Glucose (Glutose) 22.5 gm Q15M PRN PO DECREASED GLUCOSE; Start 04/11/17 at 16: 30 Dextrose (D50w Syringe) 25 ml Q15M PRN IV DECREASED GLUCOSE Last administered on 04/12/17 23:56; Admin Dose 25 ML; Start 04/11/17 at 16:30 Dextrose (D50w Syringe) 50 ml Q15M PRN IV DECREASED GLUCOSE; Start 04/11/17 at 16:30 Glucagon (Glucagen) 1 mg Q15M PRN IM DECREASED GLUCOSE; Start 04/11/17 at 16:30 Glucose (Glutose) 15 gm Q15M PRN BUCCAL DECREASED GLUCOSE; Start 04/11/17 at 16 :30 Metoclopramide HCl (Reglan) 10 mg Q6 IV Last administered on 05/12/17 12:32; Admin Dose 10 MG; Start 04/12/17 at 18:00 Insulin Aspart (Novolog Insulin Pen) NOVOLOG *MILD* ALGORI... Q6H SC Last administered on 05/12/17 12:23; Admin Dose 1 UNIT; Start 04/15/17 at 00:00 IV Flush (NS 10 ml) 10 ml PRN PRN IV FLUSH LINE; Start 04/15/17 at 13:00 Amiodarone HCl (Cordarone) 200 mg BID GTB Last administered on 05/12/17 09:33 ; Admin Dose 200 MG; Start 04/16/17 at 13:00 Heparin Sodium (Porcine) (Heparin (5000 Units/0.5 ml)) 5,000 unit BID SC Last administered on 04/30/17 21:03; Admin Dose 5,000 UNIT; Start 04/18/17 at 16:22; Status Future Hold Citalopram Hydrobromide (Celexa) 20 mg DAILY NGT Last administered on 09:31; Admin Dose 20 MG; Start 04/19/17 at 09:00 Hydralazine HCl (Apresoline) 20 mg Q6H PRN IV sbp ABOVE 160 Last administered on 05/07/17 12:23; Admin Dose 20 MG; Start 04/18/17 at 18:30 Chlorhexidine Gluconate (Peridex) 15 ml BID MT Last administered on 05/12/17 09:29; Admin Dose 15 ML; Start 04/22/17 at 21:00 Vitamin A/Vitamin D (Vitamin A & D Oint) 1 applic TID TOP Last administered on 05/12/17 12:32; Admin Dose 1 APPLIC; Start 04/22/17 at 21:00 Vitamin A/Vitamin D (Vitamin A & D Oint) 1 applic TID PRN TOP DRYNESS Last administered on 04/22/17 15:29; Admin Dose 1 APPLIC; Start 04/22/17 at 15:00 Acetaminophen/ Hydrocodone Bitart ([place] (5/325)) 1 tab Q6H GTB Last administered on 05/12/17 09:30; Admin Dose 1 TAB; Start 04/22/17 at 21:30 Spironolactone (Aldactone) 25 mg DAILY NGT Last administered on 05/12/17 09:33 ; Admin Dose 25 MG; Start 04/25/17 at 19:00; Status Future hold Diltiazem HCl (Cardizem Iv) 5 mg Q1H PRN IV HEART RATE GREATER THAN 120 Last administered on 04/29/17 06:17; Admin Dose 5 MG; Start 04/29/17 at 05:00 Metronidazole 500 mg 500 mg Q8 GTB Last administered on 05/12/17 13:50; Admin Dose 500 MG; Start 04/30/17 at 22:00 Sodium Chloride 1,000 ml @ 0 mls/hr Q0M IV Last administered on 05/01/17 03: 00; Admin Dose 1,000 MLS/HR; Start 05/01/17 at 03:00 Sodium Chloride (NS) 1,000 ml @ 0 mls/hr Q0M IV Last administered on 04:00; Admin Dose 1,000 MLS/HR; Start 05/01/17 at 03:30 Pantoprazole 40 mg 40 mg BID@18 IV Last administered on 05/12/17 05:39; Admin Dose 40 MG; Start 05/02/17 at 15:00 Diltiazem HCl (Cardizem-D5W 125 Mg/125 ml Drip) 125 ml @ 5 mls/hr TITRATE IV Last administered on 05/02/17 19:11; Admin Dose 5 MLS/HR; Start 05/02/17 at 19: 00 Valacyclovir HCl (Valtrex) 1,000 mg DAILY GTB Last administered on 05/12/17 09 :31; Admin Dose 1,000 MG; Start 05/06/17 at 09:00 Metoprolol Tartrate (Lopressor) 25 mg QID GTB Last administered on 05/12/17 12 :32; Admin Dose 25 MG; Start 05/07/17 at 09:00 Furosemide 40 mg 40 mg Q12 IV Last administered on 05/12/17 09:32; Admin Dose 40 MG; Start 05/08/17 at 09:00 Cefepime HCl (Maxipime 1gm/50 ml (Pmx)) 50 ml @ 100 mls/hr Q24H IVPB Last administered on 05/11/17 17:33; Admin Dose 100 MLS/HR; Start 05/08/17 at 18:00 Hydrocortisone (Solu-Cortef) 50 mg BID IV Last administered on 05/12/17 09:32 ; Admin Dose 50 MG; Start 05/10/17 at 21:00 MARGOT WILLS NP May 12, 2017 14:35
--- NOTE | 2017-05-12 15:46 | PN ---
Date/Time of Note Date/Time of Note DATE: 05/12/17 TIME: 15:40 Assessment/Plan VTE Prophylaxis VTE Prophylaxis Intervention: other Lines/Catheters IV Catheter Type (from Nrs): Amrit cath Urinary Cath still in place: Yes Reason Cath still needed: other (indicate) Assessment/Plan Chief Complaint/Hosp Course 1. acute on chronic hypoxemic respiratory failure: 2. NSTEMI: due to demand ischemia. 3. CHF/ fluid overload: due to diastolic heart failure 4. moderate 5. Arrhythmia and P afib, frequent PVC: currently in NSR. 6. ANEMIA 7. pneumonia, severe leukocytosis now. 8. sepsis and shock: off of pressors now 9. Anasarca 10. s/p cardiopulm arrest due to resp failure 11. renal failure 12. coagulopathy Rec: off of ASA due to active bleeding and severe anemia and coagulopathy. resp care as per PULM Team. correct lytes prn. keep K > 4, Mg > 2 CONT betablocker as tolerated. cardizem IV prn . thyroid supplement . tele monitoring HD/ ultrafiltration as per renal. transfuse prn Problems: Subjective 24 Hr Interval Summary Free Text/Dictation CARDIOLOGY FOLLOW UP NOTE: D/W staff , Pt has been transferred to tele now. rhythm was reviewed. pt has remained in NSR . no Afib over night no chest pain or pressure or palpitations. pt still s/p trach on vent Objective: General: s/p trach on vent HEENT: NC/AT. . oropharynx with old blood and multiple lesions. . NECK: NO JVD. no stridor. s/p trach on vent CV: RRR. systolic ejection murmur; no gallop or rubs. PULM: + diffuse rhonchi. GI: SOFT, NT, ND, no rebound or guarding s/p PEG Extremity: 3+ B/L LE edema. no clubbing. neuro: awake and alert and responds appropriately Psych: calm rectal: deferred Derm: multiple echymosis Exam/Review of Systems Vital Signs Vitals Vital Signs Date Time Temp Pulse Resp B/P Pulse Ox O2 Delivery O2 Flow Rate FiO2 05/12/17 15:25 98.0 75 16 145/66 100 05/12/17 13:29 30 05/09/17 23:34 Bag Valve Mask Intake and Output 705/11/17 05/12/17 15:00 23:00 07:00 Intake Total 850 ml 870 ml Output Total 300 ml 700 ml Balance 550 ml 170 ml Results Result Diagram: 05/12/1743 05/12/17 0543 Results 24 hrs Laboratory Tests Test 05/11/17 17:29 05/12/17 00:11 05/12/17 05:43 05/12/17 05:49 Bedside Glucose 190 160 175 White Blood Count 19.5 H Red Blood Count 2.67 L Hemoglobin 7.9 L Hematocrit 24.9 L Mean Corpuscular Volume 93.3 Mean Corpuscular Hemoglobin 29.6 Mean Corpuscular Hemoglobin Concent 31.7 L Red Cell Distribution Width 19.7 H Platelet Count 230 Mean Platelet Volume 12.9 H Neutrophils % 91.3 H Lymphocytes % 3.6 L Monocytes % 3.1 Eosinophils % 0.1 Basophils % 0.1 Nucleated Red Blood Cells % 0.0 Neutrophils # 17.8 H Lymphocytes # 0.7 L Monocytes # 0.6 Eosinophils # 0.0 Basophils # 0.0 Nucleated Red Blood Cells # 0.0 Sodium Level 142 Potassium Level 3.8 Chloride Level 100 Carbon Dioxide Level 31 Anion Gap 15 Blood Urea Nitrogen 60 H Creatinine 1.62 H Glucose Level 157 Calcium Level 8.3 L Phosphorus Level 3.0 Magnesium Level 2.0 Test 05/12/17 12:04 Bedside Glucose 170 Medications Medications Current Medications Aspirin (Aspirin) 325 mg DAILY NGT Last administered on 04/30/17 08:43; Admin Dose 325 MG; Start 04/12/17 at 09:00; Status Future Hold Metoprolol Tartrate (Lopressor) 5 mg Q4H PRN IV HR>110 Hold SBP<110 Last administered on 04/20/17 17:36; Admin Dose 5 MG; Start 04/11/17 at 13:30 Miscellaneous Information 1 ea NOTE XX ; Start 04/11/17 at 16:30 Glucose (Glutose) 15 gm Q15M PRN PO DECREASED GLUCOSE Last administered on 05/07 03:27; Admin Dose 15 GM; Start 04/11/17 at 16:30 Glucose (Glutose) 22.5 gm Q15M PRN PO DECREASED GLUCOSE; Start 04/11/17 at 16: 30 Dextrose (D50w Syringe) 25 ml Q15M PRN IV DECREASED GLUCOSE Last administered on 04/12/17 23:56; Admin Dose 25 ML; Start 04/11/17 at 16:30 Dextrose (D50w Syringe) 50 ml Q15M PRN IV DECREASED GLUCOSE; Start 04/11/17 at 16:30 Glucagon (Glucagen) 1 mg Q15M PRN IM DECREASED GLUCOSE; Start 04/11/17 at 16:30 Glucose (Glutose) 15 gm Q15M PRN BUCCAL DECREASED GLUCOSE; Start 04/11/17 at 16 :30 Metoclopramide HCl (Reglan) 10 mg Q6 IV Last administered on 05/12/17 12:32; Admin Dose 10 MG; Start 04/12/17 at 18:00 Insulin Aspart (Novolog Insulin Pen) NOVOLOG *MILD* ALGORI... Q6H SC Last administered on 05/12/17 12:23; Admin Dose 1 UNIT; Start 04/15/17 at 00:00 IV Flush (NS 10 ml) 10 ml PRN PRN IV FLUSH LINE; Start 04/15/17 at 13:00 Amiodarone HCl (Cordarone) 200 mg BID GTB Last administered on 05/12/17 09:33 ; Admin Dose 200 MG; Start 04/16/17 at 13:00 Heparin Sodium (Porcine) (Heparin (5000 Units/0.5 ml)) 5,000 unit BID SC Last administered on 04/30/17 21:03; Admin Dose 5,000 UNIT; Start 04/18/17 at 16:22; Status Future Hold Citalopram Hydrobromide (Celexa) 20 mg DAILY NGT Last administered on 09:31; Admin Dose 20 MG; Start 04/19/17 at 09:00 Hydralazine HCl (Apresoline) 20 mg Q6H PRN IV sbp ABOVE 160 Last administered on 05/07/17 12:23; Admin Dose 20 MG; Start 04/18/17 at 18:30 Chlorhexidine Gluconate (Peridex) 15 ml BID MT Last administered on 05/12/17 09:29; Admin Dose 15 ML; Start 04/22/17 at 21:00 Vitamin A/Vitamin D (Vitamin A & D Oint) 1 applic TID TOP Last administered on 05/12/17 12:32; Admin Dose 1 APPLIC; Start 04/22/17 at 21:00 Vitamin A/Vitamin D (Vitamin A & D Oint) 1 applic TID PRN TOP DRYNESS Last administered on 04/22/17 15:29; Admin Dose 1 APPLIC; Start 04/22/17 at 15:00 Acetaminophen/ Hydrocodone Bitart ([place] (5/325)) 1 tab Q6H GTB Last administered on 05/12/17 09:30; Admin Dose 1 TAB; Start 04/22/17 at 21:30 Spironolactone (Aldactone) 25 mg DAILY NGT Last administered on 05/12/17 09:33 ; Admin Dose 25 MG; Start 04/25/17 at 19:00; Status Future hold Diltiazem HCl (Cardizem Iv) 5 mg Q1H PRN IV HEART RATE GREATER THAN 120 Last administered on 04/29/17 06:17; Admin Dose 5 MG; Start 04/29/17 at 05:00 Metronidazole 500 mg 500 mg Q8 GTB Last administered on 05/12/17 13:50; Admin Dose 500 MG; Start 04/30/17 at 22:00 Sodium Chloride 1,000 ml @ 0 mls/hr Q0M IV Last administered on 05/01/17 03: 00; Admin Dose 1,000 MLS/HR; Start 05/01/17 at 03:00 Sodium Chloride (NS) 1,000 ml @ 0 mls/hr Q0M IV Last administered on 04:00; Admin Dose 1,000 MLS/HR; Start 05/01/17 at 03:30 Pantoprazole 40 mg 40 mg BID@06,18 IV Last administered on 05/12/17 05:39; Admin Dose 40 MG; Start 05/02/17 at 15:00 Diltiazem HCl (Cardizem-D5W 125 Mg/125 ml Drip) 125 ml @ 5 mls/hr TITRATE IV Last administered on 05/02/17 19:11; Admin Dose 5 MLS/HR; Start 05/02/17 at 19: 00 Valacyclovir HCl (Valtrex) 1,000 mg DAILY GTB Last administered on 05/12/17 09 :31; Admin Dose 1,000 MG; Start 05/06/17 at 09:00 Metoprolol Tartrate (Lopressor) 25 mg QID GTB Last administered on 05/12/17 12 :32; Admin Dose 25 MG; Start 05/07/17 at 09:00 Furosemide 40 mg 40 mg Q12 IV Last administered on 05/12/17 09:32; Admin Dose 40 MG; Start 05/08/17 at 09:00 Cefepime HCl (Maxipime 1gm/50 ml (Pmx)) 50 ml @ 100 mls/hr Q24H IVPB Last administered on 05/11/17 17:33; Admin Dose 100 MLS/HR; Start 05/08/17 at 18:00 Hydrocortisone (Solu-Cortef) 50 mg BID IV Last administered on 05/12/17 09:32 ; Admin Dose 50 MG; Start 05/10/17 at 21:00 FRANCISCO BLACKWOOD MD May 12, 2017 15:46
[2017-05-12] MEDS: NYSTATIN SUSP 5 ML CUP PO SCH ×2 (18:00→22:10)
[2017-05-12] MEDS: CEFEPIME 1GM/50 ML (PMX) 50 ML IVPB SCH (18:00)
--- NOTE | 2017-05-12 22:26 | CONS ---
Date/Time of Note Date/Time of Note DATE: 05/12/17 TIME: 22:25 Assessment/Plan Assessment/Plan Chief Complaint/Hosp Course Patient is a 66 year old female with a history of diabetes mellitus hypertension chronic vent dependency, history of tongue cancer status post resection has a G-tube. GI consult was called in for GI bleeding anemia requiring blood transfusion. Her other problems include aspiration pneumonia, atrial fibrillation well controlled. Patient also had a sepsis and fungemia successfully treated. Her G-tube aspirate shows burgundy colored fluid. Patient is off all the pressor support. She is on a steroid for adrenal insufficiency Problems: Additional Assessment/Plan Additional Assessment/Plan Additional Assessment/Plan #1 GI bleeding manifested in the form of hematemesis and large burgundy color aspirate through G-tube, successful hemostasis achieved. No further bleeding 2. Vent dependent respiratory failure 3. Atrial fibrillation 4. Diabetes mellitus 5. Hypertension 6. Status post septic shock 7. Anemia, no active bleeding, further drop in hematocrit may be due to chronic disease 8. Prerenal azotemia, patient is on dialysis now 9. Status post cardiac arrest in the past 10. Leukocytosis 11. Encephalopathy 13 adrenalin insufficiency Plan Transfuse 2 units of packed cell RBC bring hemoglobin greater than 7.5 Continue with PPI Consultation Date/Type/Reason Admit Date/Time Apr 11, 2017 at 11:28 Initial Consult Date 05/01/17 Type of Consultation: ID Referring Provider: NINA MACIEL DO 24 HR Interval Summary Constitutional: no complaints Exam/Review of Systems Vital Signs Vitals Vital Signs Date Time Temp Pulse Resp B/P Pulse Ox O2 Delivery O2 Flow Rate FiO2 05/12/17 20:57 64 16 100 30 05/12/17 19:57 98.4 131/68 05/09/17 23:34 Bag Valve Mask Intake and Output 05/11/17 05/11/17 05/12/17 15:00 23:00 07:00 Intake Total 850 ml 870 ml Output Total 300 ml 700 ml Balance 550 ml 170 ml Results Result Diagram: 05/12/17 0543 05/12/17 0543 Results 24 hrs Laboratory Tests Test 05/12/17 00:11 05/12/17 05:43 05/12/17 05:49 05/12/17 12:04 Bedside Glucose 160 175 170 White Blood Count 19.5 H Red Blood Count 2.67 L Hemoglobin 7.9 L Hematocrit 24.9 L Mean Corpuscular Volume 93.3 Mean Corpuscular Hemoglobin 29.6 Mean Corpuscular Hemoglobin Concent 31.7 L Red Cell Distribution Width 19.7 H Platelet Count 230 Mean Platelet Volume 12.9 H Neutrophils % 91.3 H Lymphocytes % 3.6 L Monocytes % 3.1 Eosinophils % 0.1 Basophils % 0.1 Nucleated Red Blood Cells % 0.0 Neutrophils # 17.8 H Lymphocytes # 0.7 L Monocytes # 0.6 Eosinophils # 0.0 Basophils # 0.0 Nucleated Red Blood Cells # 0.0 Sodium Level 142 Potassium Level 3.8 Chloride Level 100 Carbon Dioxide Level 31 Anion Gap 15 Blood Urea Nitrogen 60 H Creatinine 1.62 H Glucose Level 157 Calcium Level 8.3 L Phosphorus Level 3.0 Magnesium Level 2.0 Test 05/12/17 18:05 Bedside Glucose 169 Medications Medications Current Medications Aspirin (Aspirin) 325 mg DAILY NGT Last administered on 04/30/17 08:43; Admin Dose 325 MG; Start 04/12/17 at 09:00; Status Future Hold Metoprolol Tartrate (Lopressor) 5 mg Q4H PRN IV HR>110 Hold SBP<110 Last administered on 04/20/17 17:36; Admin Dose 5 MG; Start 04/11/17 at 13:30 Miscellaneous Information 1 ea NOTE XX ; Start 04/11/17 at 16:30 Glucose (Glutose) 15 gm Q15M PRN PO DECREASED GLUCOSE Last administered on 05/07 03:27; Admin Dose 15 GM; Start 04/11/17 at 16:30 Glucose (Glutose) 22.5 gm Q15M PRN PO DECREASED GLUCOSE; Start 04/11/17 at 16: 30 Dextrose (D50w Syringe) 25 ml Q15M PRN IV DECREASED GLUCOSE Last administered on 04/12/17 23:56; Admin Dose 25 ML; Start 04/11/17 at 16:30 Dextrose (D50w Syringe) 50 ml Q15M PRN IV DECREASED GLUCOSE; Start 04/11/17 at 16:30 Glucagon (Glucagen) 1 mg Q15M PRN IM DECREASED GLUCOSE; Start 04/11/17 at 16:30 Glucose (Glutose) 15 gm Q15M PRN BUCCAL DECREASED GLUCOSE; Start 04/11/17 at 16 :30 Metoclopramide HCl (Reglan) 10 mg Q6 IV Last administered on 05/12/17 18:00; Admin Dose 10 MG; Start 04/12/17 at 18:00 Insulin Aspart (Novolog Insulin Pen) NOVOLOG *MILD* ALGORI... Q6H SC Last administered on 05/12/17 18:08; Admin Dose 1 UNIT; Start 04/15/17 at 00:00 IV Flush (NS 10 ml) 10 ml PRN PRN IV FLUSH LINE; Start 04/15/17 at 13:00 Amiodarone HCl (Cordarone) 200 mg BID GTB Last administered on 05/12/17 22:09 ; Admin Dose 200 MG; Start 04/16/17 at 13:00 Heparin Sodium (Porcine) (Heparin (5000 Units/0.5 ml)) 5,000 unit BID SC Last administered on 04/30/17 21:03; Admin Dose 5,000 UNIT; Start 04/18/17 at 16:22; Status Future Hold Citalopram Hydrobromide (Celexa) 20 mg DAILY NGT Last administered on 09:31; Admin Dose 20 MG; Start 04/19/17 at 09:00 Hydralazine HCl (Apresoline) 20 mg Q6H PRN IV sbp ABOVE 160 Last administered on 05/07/17 12:23; Admin Dose 20 MG; Start 04/18/17 at 18:30 Chlorhexidine Gluconate (Peridex) 15 ml BID MT Last administered on 05/12/17 22:10; Admin Dose 15 ML; Start 04/22/17 at 21:00 Vitamin A/Vitamin D (Vitamin A & D Oint) 1 applic TID TOP Last administered on 05/12/17 22:10; Admin Dose 1 APPLIC; Start 04/22/17 at 21:00 Vitamin A/Vitamin D (Vitamin A & D Oint) 1 applic TID PRN TOP DRYNESS Last administered on 04/22/17 15:29; Admin Dose 1 APPLIC; Start 04/22/17 at 15:00 Acetaminophen/ Hydrocodone Bitart ([place] (5/325)) 1 tab Q6H GTB Last administered on 05/12/17 22:12; Admin Dose 1 TAB; Start 04/22/17 at 21:30 Spironolactone (Aldactone) 25 mg DAILY NGT Last administered on 05/12/17 09:33 ; Admin Dose 25 MG; Start 04/25/17 at 19:00; Status Future hold Diltiazem HCl (Cardizem Iv) 5 mg Q1H PRN IV HEART RATE GREATER THAN 120 Last administered on 04/29/17 06:17; Admin Dose 5 MG; Start 04/29/17 at 05:00 Metronidazole 500 mg 500 mg Q8 GTB Last administered on 05/12/17 22:08; Admin Dose 500 MG; Start 04/30/17 at 22:00 Sodium Chloride 1,000 ml @ 0 mls/hr Q0M IV Last administered on 05/01/17 03: 00; Admin Dose 1,000 MLS/HR; Start 05/01/17 at 03:00 Sodium Chloride (NS) 1,000 ml @ 0 mls/hr Q0M IV Last administered on 04:00; Admin Dose 1,000 MLS/HR; Start 05/01/17 at 03:30 Pantoprazole 40 mg 40 mg BID@06,18 IV Last administered on 05/12/17 18:00; Admin Dose 40 MG; Start 05/02/17 at 15:00 Diltiazem HCl (Cardizem-D5W 125 Mg/125 ml Drip) 125 ml @ 5 mls/hr TITRATE IV Last administered on 05/02/17 19:11; Admin Dose 5 MLS/HR; Start 05/02/17 at 19: 00 Valacyclovir HCl (Valtrex) 1,000 mg DAILY GTB Last administered on 05/12/17 09 :31; Admin Dose 1,000 MG; Start 05/06/17 at 09:00 Metoprolol Tartrate (Lopressor) 25 mg QID GTB Last administered on 05/12/17 22 :09; Admin Dose 25 MG; Start 05/07/17 at 09:00 Furosemide 40 mg 40 mg Q12 IV Last administered on 05/12/17 22:10; Admin Dose 40 MG; Start 05/08/17 at 09:00 Cefepime HCl (Maxipime 1gm/50 ml (Pmx)) 50 ml @ 100 mls/hr Q24H IVPB Last administered on 05/12/17 18:00; Admin Dose 100 MLS/HR; Start 05/08/17 at 18:00 Hydrocortisone (Solu-Cortef) 50 mg BID IV Last administered on 05/12/17 22:10 ; Admin Dose 50 MG; Start 05/10/17 at 21:00 Vitamin B Complex/ Vitamin C ([place]) 1 cap DAILY PO ; Start 05/13/17 at 09:00 Nystatin (Nystatin Susp) 5 ml QID PO Last administered on 05/12/17 22:10; Admin Dose 5 ML; Start 05/12/17 at 17:00 ALYSSA THOMPSON MD May 12, 2017 22:26
[2017-05-13] VITALS (32 sets, daily range): BP systolic 87–152; BP diastolic 40–76; PULSE 64–78; RESP 16–20
[2017-05-13] MEDS: INSULIN ASPART [NOVOLOG] 3 ML PEN SC SCH ×4 (00:38→17:38)
[2017-05-13] MEDS: METOCLOPRAMIDE 10 MG INJ IV SCH ×4 (00:41→17:25)
[2017-05-13] MEDS: LEVALBUTEROL (HFA) 15 GM INHALER INH SCH ×4 (01:28→19:44)
[2017-05-13] MEDS: HYDROCODONE/APAP (5/325) TAB GTB SCH ×5 (03:30→22:18)
[2017-05-13] MEDS: metroNIDAZOLE 500 MG TAB GTB SCH ×3 (05:39→21:31)
[2017-05-13] MEDS: PANTOPRAZOLE 40 MG INJ IV SCH ×2 (05:39→17:26)
[2017-05-13] MEDS: LEVOTHYROXINE 75 MCG TAB GTB SCH (05:41)
[2017-05-13 06:24] LABS: BASOPHILS % 0.2 % (0.0-2.0); EOSINOPHILS % 0.1 % (0.0-7.0); HEMATOCRIT 23.6 % (37.0-47.0); HEMOGLOBIN 7.9 g/dl (12.0-16.0); LYMPHOCYTES # 0.9 10^3/ul (0.8-2.9); LYMPHOCYTES % 5.2 % (15.0-51.0); MEAN CORPUSCULAR HEMOGLOBIN 30.6 pg (29.0-33.0); MEAN CORPUSCULAR HGB CONC 33.5 g/dl (32.0-37.0); MEAN CORPUSCULAR VOLUME 91.5 fl (82.0-101.0); MEAN PLATELET VOLUME 12.2 fl (7.4-10.4); MONOCYTE # 0.8 10^3/ul (0.3-0.9); MONOCYTES % 4.5 % (0.0-11.0); NEUTROPHIL # 15.1 10^3/ul (1.6-7.5); NEUTROPHILS % 87.6 % (39.0-77.0); PLATELET COUNT 272 10^3/UL (140-415); RED BLOOD COUNT 2.58 10^6/ul (4.20-5.40); RED CELL DISTRIBUTION WIDTH 19.2 % (11.5-14.5); WHITE BLOOD COUNT 17.2 10^3/ul (4.8-10.8)
[2017-05-13] MEDS ORDERED: ALBUMIN HUMAN 25% 100 ML IV ONE (07:00)
[2017-05-13 07:05] LABS: CALCIUM 8.5 mg/dl (8.4-10.2); CREATININE 1.71 mg/dl (0.44-1.00); PHOSPHORUS 3.2 mg/dl (2.5-4.9); POTASSIUM 3.4 mmol/L (3.5-5.1)
[2017-05-13] MEDS: COLISTIMETHATE (25 MG/ML INHAL SYG) NEB SCH ×2 (08:29→19:44)
--- NOTE | 2017-05-13 08:55 | CONS ---
Date/Time of Note Date/Time of Note DATE: 05/13/17 TIME: 08:53 Assessment/Plan Assessment/Plan Additional Assessment/Plan Ventilator setting; AC of 16, tidal volume 500, PEEP of 5, 30% FiO2. Assessment and recommendations; 1. Patient admitted for sepsis from pneumonia currently on broad-spectrum antibiotic coverage. 2. Chronic respiratory failure status post redo tracheostomy 2. 3. COPD. 4. Anemia. 5. End-stage renal disease, on hemodialysis. 6. Generalized anasarca. 7. Generalized deconditioning. 8. Remote history of glossal cancer. Continue current treatment. Consultation Date/Type/Reason Admit Date/Time Apr 11, 2017 at 11:28 Initial Consult Date 05/01/17 Type of Consultation: Pulmonary Referring Provider: NINA MACIEL DO 24 HR Interval Summary Free Text/Dictation Patient condition is stable. Remains awake alert. Has remained hemodynamically stable. General exam; elderly woman, on ventilator via tracheostomy, currently in no distress. Exam/Review of Systems Vital Signs Vitals Vital Signs Date Time Temp Pulse Resp B/P Pulse Ox O2 Delivery O2 Flow Rate FiO2 05/13/17 08:20 67 18 100 30 05/13/17 07:17 98.0 143/70 05/09/17 23:34 Bag Valve Mask Intake and Output 05/12/17 05/12/17 05/13/17 15:00 23:00 07:00 Intake Total 1050 ml 950 ml Output Total 600 ml 700 ml Balance 450 ml 250 ml Exam HEENT exam; supple neck, no JVD. No lymphadenopathy. Midline trachea. Patient has multiple excoriations. Tracheostomy placed with clean insertion site. Patient has fair dentition. Chest exam; diminished but clear breath sound. S1-S2 audible, no murmurs. Regular rhythm. Abdomen exam; soft, bowel sounds audible. G-tube in place. Extremity exam; 3+ anasarca. Patient has a multiple ecchymosis in all 4 extremities. EPIC SPECIALIST exam; patient is awake and alert follows all commands and moves all 4 extremity's. Still exhibiting profound generalized weakness. Results Result Diagram: 05/13/17 0553 05/13/17 0553 Results 24 hrs Laboratory Tests Test 05/12/17 12:04 05/12/17 18:05 05/13/17 00:34 05/13/17 05:37 Bedside Glucose 170 169 159 138 Test 05/13/17 05:53 White Blood Count 17.2 H Red Blood Count 2.58 L Hemoglobin 7.9 L Hematocrit 23.6 L Mean Corpuscular Volume 91.5 Mean Corpuscular Hemoglobin 30.6 Mean Corpuscular Hemoglobin Concent 33.5 Red Cell Distribution Width 19.2 H Platelet Count 272 Mean Platelet Volume 12.2 H Neutrophils % 87.6 H Lymphocytes % 5.2 L Monocytes % 4.5 Eosinophils % 0.1 Basophils % 0.2 Nucleated Red Blood Cells % 0.0 Neutrophils # 15.1 H Lymphocytes # 0.9 Monocytes # 0.8 Eosinophils # 0.0 Basophils # 0.0 Nucleated Red Blood Cells # 0.0 Sodium Level 139 Potassium Level 3.4 L Chloride Level 96 L Carbon Dioxide Level 32 H Anion Gap 14 Blood Urea Nitrogen 74 H Creatinine 1.71 H Glucose Level 123 Calcium Level 8.5 Phosphorus Level 3.2 Magnesium Level 2.0 Medications Medications Current Medications Aspirin (Aspirin) 325 mg DAILY NGT Last administered on 04/30/17 08:43; Admin Dose 325 MG; Start 04/12/17 at 09:00; Status Future Hold Metoprolol Tartrate (Lopressor) 5 mg Q4H PRN IV HR>110 Hold SBP<110 Last administered on 04/20/17 17:36; Admin Dose 5 MG; Start 04/11/17 at 13:30 Miscellaneous Information 1 ea NOTE XX ; Start 04/11/17 at 16:30 Glucose (Glutose) 15 gm Q15M PRN PO DECREASED GLUCOSE Last administered on 05/07 03:27; Admin Dose 15 GM; Start 04/11/17 at 16:30 Glucose (Glutose) 22.5 gm Q15M PRN PO DECREASED GLUCOSE; Start 04/11/17 at 16: 30 Dextrose (D50w Syringe) 25 ml Q15M PRN IV DECREASED GLUCOSE Last administered on 04/12/17 23:56; Admin Dose 25 ML; Start 04/11/17 at 16:30 Dextrose (D50w Syringe) 50 ml Q15M PRN IV DECREASED GLUCOSE; Start 04/11/17 at 16:30 Glucagon (Glucagen) 1 mg Q15M PRN IM DECREASED GLUCOSE; Start 04/11/17 at 16:30 Glucose (Glutose) 15 gm Q15M PRN BUCCAL DECREASED GLUCOSE; Start 04/11/17 at 16 :30 Metoclopramide HCl (Reglan) 10 mg Q6 IV Last administered on 05/13/17 05:40; Admin Dose 10 MG; Start 04/12/17 at 18:00 Insulin Aspart (Novolog Insulin Pen) NOVOLOG *MILD* ALGORI... Q6H SC Last administered on 05/13/17 00:38; Admin Dose 1 UNIT; Start 04/15/17 at 00:00 IV Flush (NS 10 ml) 10 ml PRN PRN IV FLUSH LINE; Start 04/15/17 at 13:00 Amiodarone HCl (Cordarone) 200 mg BID GTB Last administered on 05/12/17 22:09 ; Admin Dose 200 MG; Start 04/16/17 at 13:00 Heparin Sodium (Porcine) (Heparin (5000 Units/0.5 ml)) 5,000 unit BID SC Last administered on 04/30/17 21:03; Admin Dose 5,000 UNIT; Start 04/18/17 at 16:22; Status Future Hold Citalopram Hydrobromide (Celexa) 20 mg DAILY NGT Last administered on 09:31; Admin Dose 20 MG; Start 04/19/17 at 09:00 Hydralazine HCl (Apresoline) 20 mg Q6H PRN IV sbp ABOVE 160 Last administered on 05/07/17 12:23; Admin Dose 20 MG; Start 04/18/17 at 18:30 Chlorhexidine Gluconate (Peridex) 15 ml BID MT Last administered on 05/12/17 22:10; Admin Dose 15 ML; Start 04/22/17 at 21:00 Vitamin A/Vitamin D (Vitamin A & D Oint) 1 applic TID TOP Last administered on 05/12/17 22:10; Admin Dose 1 APPLIC; Start 04/22/17 at 21:00 Vitamin A/Vitamin D (Vitamin A & D Oint) 1 applic TID PRN TOP DRYNESS Last administered on 04/22/17 15:29; Admin Dose 1 APPLIC; Start 04/22/17 at 15:00 Acetaminophen/ Hydrocodone Bitart ([place] (5/325)) 1 tab Q6H GTB Last administered on 05/13/17 03:30; Admin Dose 1 TAB; Start 04/22/17 at 21:30 Spironolactone (Aldactone) 25 mg DAILY NGT Last administered on 05/12/17 09:33 ; Admin Dose 25 MG; Start 04/25/17 at 19:00; Status Future hold Diltiazem HCl (Cardizem Iv) 5 mg Q1H PRN IV HEART RATE GREATER THAN 120 Last administered on 04/29/17 06:17; Admin Dose 5 MG; Start 04/29/17 at 05:00 Metronidazole 500 mg 500 mg Q8 GTB Last administered on 05/13/17 05:39; Admin Dose 500 MG; Start 04/30/17 at 22:00 Sodium Chloride 1,000 ml @ 0 mls/hr Q0M IV Last administered on 05/01/17 03: 00; Admin Dose 1,000 MLS/HR; Start 05/01/17 at 03:00 Sodium Chloride (NS) 1,000 ml @ 0 mls/hr Q0M IV Last administered on 04:00; Admin Dose 1,000 MLS/HR; Start 05/01/17 at 03:30 Pantoprazole 40 mg 40 mg BID@06,18 IV Last administered on 05/13/17 05:39; Admin Dose 40 MG; Start 05/02/17 at 15:00 Diltiazem HCl (Cardizem-D5W 125 Mg/125 ml Drip) 125 ml @ 5 mls/hr TITRATE IV Last administered on 05/02/17 19:11; Admin Dose 5 MLS/HR; Start 05/02/17 at 19: 00 Valacyclovir HCl (Valtrex) 1,000 mg DAILY GTB Last administered on 05/12/17 09 :31; Admin Dose 1,000 MG; Start 05/06/17 at 09:00 Metoprolol Tartrate (Lopressor) 25 mg QID GTB Last administered on 05/12/17 22 :09; Admin Dose 25 MG; Start 05/07/17 at 09:00 Furosemide 40 mg 40 mg Q12 IV Last administered on 05/12/17 22:10; Admin Dose 40 MG; Start 05/08/17 at 09:00 Cefepime HCl (Maxipime 1gm/50 ml (Pmx)) 50 ml @ 100 mls/hr Q24H IVPB Last administered on 05/12/17 18:00; Admin Dose 100 MLS/HR; Start 05/08/17 at 18:00 Hydrocortisone (Solu-Cortef) 50 mg BID IV Last administered on 05/12/17 22:10 ; Admin Dose 50 MG; Start 05/10/17 at 21:00 Vitamin B Complex/ Vitamin C (Berocca) 1 cap DAILY PO ; Start 05/13/17 at 09:00 Nystatin (Nystatin Susp) 5 ml QID PO Last administered on 05/12/17 22:10; Admin Dose 5 ML; Start 05/12/17 at 17:00 Potassium Chloride (Potassium Chloride Pwd/Soln) 40 meq ONCE ONCE GTB ; Start 05/13/17 at 09:00; Stop 05/13/17 at 09:01 EMILIANO HICKS May 13, 2017 08:55
[2017-05-13] MEDS: NYSTATIN SUSP 5 ML CUP PO SCH ×5 (09:00→21:31)
[2017-05-13] MEDS: CHLORHEXIDINE GLUCONATE 15 ML UD CUP MT SCH ×3 (09:00→21:32)
[2017-05-13] MEDS ORDERED: POTASSIUM CHLORIDE 20 MEQ POWDER FOR ORAL SOLN GTB ONE (09:00)
[2017-05-13] MEDS: VALACYCLOVIR 500 MG TAB GTB SCH (10:14)
[2017-05-13] MEDS: VITAMIN A & D 5 GM OINT PACKET TOP SCH ×3 (10:14→21:31)
[2017-05-13] MEDS: AMIODARONE 200 MG TAB GTB SCH ×2 (10:15→21:30)
[2017-05-13] MEDS: VITAMIN B COMPLEX/VIT C CAP PO SCH (10:15)
[2017-05-13] MEDS: CITALOPRAM 20 MG TAB NGT SCH (10:15)
[2017-05-13] MEDS: SPIRONOLACTONE 25 MG TAB NGT SCH (10:15)
[2017-05-13] MEDS: HYDROCORTISONE 100 MG INJ IV SCH ×2 (10:16→21:00)
[2017-05-13] MEDS: FUROSEMIDE 40 MG INJ IV SCH ×2 (10:16→21:30)
[2017-05-13] MEDS: EPOETIN 10000 UNITS/1 ML INJ (ESRD) SC SCH (10:18)
[2017-05-13] MEDS: METOPROLOL 25 MG TAB GTB SCH ×4 (10:25→21:29)
--- NOTE | 2017-05-13 10:42 | PN ---
DATE: 05/13/2017 SUBJECTIVE DATA: The patient had hemodialysis with ultrafiltration today, tolerated well. No other acute events noted. No hemoptysis, hematemesis, hematochezia. OBJECTIVE DATA: VITAL SIGNS: Blood pressure is 143/70, respirations 20, pulse 69, temperature 98.0. HEENT: Head is normocephalic. NECK: Supple. HEART: Regular rate. LUNGS: Show diminished breath sounds at the base. ABDOMEN: Soft, nontender to palpation. No rebound or guarding. EXTREMITIES: Negative for clubbing, cyanosis. Positive edema. DERMATOLOGIC: Clean. No rashes. MUSCULOSKELETAL: No joint effusion. NEUROLOGIC: No change in exam. MEDICATIONS: Reviewed. LABORATORY AND DIAGNOSTIC DATA: Sodium 139, potassium 3.4, chloride 96, BUN 74, creatinine 1.71. White count 17.2, hemoglobin 7.9, crit 28.6, platelet count 272. ASSESSMENT AND PLAN: 1. Ventilatory-dependent respiratory failure. Vent settings have been reviewed. ABGs reviewed. Continue to monitor. Follow up with Pulmonary. 2. History of thyroid cancer. Patient is status post ENT evaluation. 3. Tracheomalacia. Continue current medical management. 4. Nonoliguric acute kidney injury on top chronic kidney disease secondary to acute tubular necrosis. The patient is currently dialysis dependent. Continue intermittent dialysis. Monitor for signs of recovery. 5. Sepsis, status post shock secondary to aspiration pneumonia fungemia. Continue current medical management. Continue antifungal therapy. Follow up with Infectious Disease. 6. Volume overload. Continue current diuretic regimen. Continue ultrafiltration dialysis. 7. Adrenal insufficiency. Continue current steroid regimen. 8. Acute encephalopathy, etiology is toxic metabolic. Patient's status is improving. 9. Hypothyroidism. Continue Synthroid. 10. Anemia with previous episodes of gastrointestinal bleed. Monitor H and H levels. Continue Epogen with dialysis. 11. Mineral bone disorder. Monitor calcium and phosphorus levels. 12. History of congestive heart failure. Continue medical management. 13. Leukocytosis. Etiology is multifactorial, secondary to steroids. Infection slowly improving. Continue to monitor. 14. Left upper extremity deep vein thrombosis. Continue to hold antiplatelets at this time. 15. Dysphagia. Continue tube feeding. 16. Arrhythmia. Continue medical management. 17. Cholelithiasis. 18. Gastrointestinal and deep venous thrombosis prophylaxis. Dictated By: Abebe Valderrama DO /marquita/laith /Document#: [id number]
--- NOTE | 2017-05-13 11:23 | CONS ---
Date/Time of Note Date/Time of Note DATE: 05/13/17 TIME: 11:22 Assessment/Plan Assessment/Plan Chief Complaint/Hosp Course Patient is a 66 year old female with a history of diabetes mellitus hypertension chronic vent dependency, history of tongue cancer status post resection has a G-tube. GI consult was called in for GI bleeding anemia requiring blood transfusion. Her other problems include aspiration pneumonia, atrial fibrillation well controlled. Patient also had a sepsis and fungemia successfully treated. Her G-tube aspirate shows burgundy colored fluid. Patient is off all the pressor support. She is on a steroid for adrenal insufficiency Problems: Additional Assessment/Plan Additional Assessment/Plan Additional Assessment/Plan #1 GI bleeding manifested in the form of hematemesis and large burgundy color aspirate through G-tube, successful hemostasis achieved. No further bleeding 2. Vent dependent respiratory failure 3. Atrial fibrillation 4. Diabetes mellitus 5. Hypertension 6. Status post septic shock 7. Anemia, no active bleeding, further drop in hematocrit may be due to chronic disease 8. Prerenal azotemia, patient is on dialysis now 9. Status post cardiac arrest in the past 10. Leukocytosis 11. Encephalopathy 13 adrenalin insufficiency Plan Monitor H&H Bleeding is completely stopped Consultation Date/Type/Reason Admit Date/Time Apr 11, 2017 at 11:28 Initial Consult Date 05/01/17 Type of Consultation: Pulmonary Referring Provider: NINA MACIEL DO 24 HR Interval Summary Constitutional: improved, no complaints Exam/Review of Systems Vital Signs Vitals Vital Signs Date Time Temp Pulse Resp B/P Pulse Ox O2 Delivery O2 Flow Rate FiO2 05/13/17 09:48 65 16 100 30 05/13/17 07:17 98.0 143/70 05/09/17 23:34 Bag Valve Mask Intake and Output 05/12/17 05/12/17 05/13/17 15:00 23:00 07:00 Intake Total 1050 ml 950 ml Output Total 600 ml 700 ml Balance 450 ml 250 ml Exam Respiratory: other (Patient is on vent) Cardiovascular: nl pulses, regular rate and rhythm Gastrointestinal: nl liver, spleen, non-tender, soft Extremities: edema, pitting pedal edema Results Result Diagram: 05/13/17 0553 05/13/17 0553 Results 24 hrs Laboratory Tests Test 05/12/17 12:04 05/12/17 18:05 05/13/17 00:34 05/13/17 05:37 Bedside Glucose 170 169 159 138 Test 05/13/17 05:53 White Blood Count 17.2 H Red Blood Count 2.58 L Hemoglobin 7.9 L Hematocrit 23.6 L Mean Corpuscular Volume 91.5 Mean Corpuscular Hemoglobin 30.6 Mean Corpuscular Hemoglobin Concent 33.5 Red Cell Distribution Width 19.2 H Platelet Count 272 Mean Platelet Volume 12.2 H Neutrophils % 87.6 H Lymphocytes % 5.2 L Monocytes % 4.5 Eosinophils % 0.1 Basophils % 0.2 Nucleated Red Blood Cells % 0.0 Neutrophils # 15.1 H Lymphocytes # 0.9 Monocytes # 0.8 Eosinophils # 0.0 Basophils # 0.0 Nucleated Red Blood Cells # 0.0 Sodium Level 139 Potassium Level 3.4 L Chloride Level 96 L Carbon Dioxide Level 32 H Anion Gap 14 Blood Urea Nitrogen 74 H Creatinine 1.71 H Glucose Level 123 Calcium Level 8.5 Phosphorus Level 3.2 Magnesium Level 2.0 Medications Medications Current Medications Aspirin (Aspirin) 325 mg DAILY NGT Last administered on 04/30/17 08:43; Admin Dose 325 MG; Start 04/12/17 at 09:00; Status Future Hold Metoprolol Tartrate (Lopressor) 5 mg Q4H PRN IV HR>110 Hold SBP<110 Last administered on 04/20/17 17:36; Admin Dose 5 MG; Start 04/11/17 at 13:30 Miscellaneous Information 1 ea NOTE XX ; Start 04/11/17 at 16:30 Glucose (Glutose) 15 gm Q15M PRN PO DECREASED GLUCOSE Last administered on 05/07 03:27; Admin Dose 15 GM; Start 04/11/17 at 16:30 Glucose (Glutose) 22.5 gm Q15M PRN PO DECREASED GLUCOSE; Start 04/11/17 at 16: 30 Dextrose (D50w Syringe) 25 ml Q15M PRN IV DECREASED GLUCOSE Last administered on 04/12/17 23:56; Admin Dose 25 ML; Start 04/11/17 at 16:30 Dextrose (D50w Syringe) 50 ml Q15M PRN IV DECREASED GLUCOSE; Start 04/11/17 at 16:30 Glucagon (Glucagen) 1 mg Q15M PRN IM DECREASED GLUCOSE; Start 04/11/17 at 16:30 Glucose (Glutose) 15 gm Q15M PRN BUCCAL DECREASED GLUCOSE; Start 04/11/17 at 16 :30 Metoclopramide HCl (Reglan) 10 mg Q6 IV Last administered on 05/13/17 05:40; Admin Dose 10 MG; Start 04/12/17 at 18:00 Insulin Aspart (Novolog Insulin Pen) NOVOLOG *MILD* ALGORI... Q6H SC Last administered on 05/13/17 00:38; Admin Dose 1 UNIT; Start 04/15/17 at 00:00 IV Flush (NS 10 ml) 10 ml PRN PRN IV FLUSH LINE; Start 04/15/17 at 13:00 Amiodarone HCl (Cordarone) 200 mg BID GTB Last administered on 05/13/17 10:15; Admin Dose 200 MG; Start 04/16/17 at 13:00 Heparin Sodium (Porcine) (Heparin (5000 Units/0.5 ml)) 5,000 unit BID SC Last administered on 04/30/17 21:03; Admin Dose 5,000 UNIT; Start 04/18/17 at 16:22; Status Future Hold Citalopram Hydrobromide (Celexa) 20 mg DAILY NGT Last administered on 05/13/17 10:15; Admin Dose 20 MG; Start 04/19/17 at 09:00 Hydralazine HCl (Apresoline) 20 mg Q6H PRN IV sbp ABOVE 160 Last administered on 05/07/17 12:23; Admin Dose 20 MG; Start 04/18/17 at 18:30 Chlorhexidine Gluconate (Peridex) 15 ml BID MT Last administered on 05/12/17 22:10; Admin Dose 15 ML; Start 04/22/17 at 21:00 Vitamin A/Vitamin D (Vitamin A & D Oint) 1 applic TID TOP Last administered on 05/13/17 10:14; Admin Dose 1 APPLIC; Start 04/22/17 at 21:00 Vitamin A/Vitamin D (Vitamin A & D Oint) 1 applic TID PRN TOP DRYNESS Last administered on 04/22/17 15:29; Admin Dose 1 APPLIC; Start 04/22/17 at 15:00 Acetaminophen/ Hydrocodone Bitart ([place] (5/325)) 1 tab Q6H GTB Last administered on 05/13/17 10:25; Admin Dose 1 TAB; Start 04/22/17 at 21:30 Spironolactone (Aldactone) 25 mg DAILY NGT Last administered on 05/13/17 10:15 ; Admin Dose 25 MG; Start 04/25/17 at 19:00; Status Future hold Diltiazem HCl (Cardizem Iv) 5 mg Q1H PRN IV HEART RATE GREATER THAN 120 Last administered on 04/29/17 06:17; Admin Dose 5 MG; Start 04/29/17 at 05:00 Metronidazole 500 mg 500 mg Q8 GTB Last administered on 05/13/17 05:39; Admin Dose 500 MG; Start 04/30/17 at 22:00 Sodium Chloride 1,000 ml @ 0 mls/hr Q0M IV Last administered on 05/01/17 03: 00; Admin Dose 1,000 MLS/HR; Start 05/01/17 at 03:00 Sodium Chloride (NS) 1,000 ml @ 0 mls/hr Q0M IV Last administered on 04:00; Admin Dose 1,000 MLS/HR; Start 05/01/17 at 03:30 Pantoprazole 40 mg 40 mg BID@06,18 IV Last administered on 05/13/17 05:39; Admin Dose 40 MG; Start 05/02/17 at 15:00 Diltiazem HCl (Cardizem-D5W 125 Mg/125 ml Drip) 125 ml @ 5 mls/hr TITRATE IV Last administered on 05/02/17 19:11; Admin Dose 5 MLS/HR; Start 05/02/17 at 19: 00 Valacyclovir HCl (Valtrex) 1,000 mg DAILY GTB Last administered on 05/13/17 10: 14; Admin Dose 1,000 MG; Start 05/06/17 at 09:00 Metoprolol Tartrate (Lopressor) 25 mg QID GTB Last administered on 05/13/17 10: 25; Admin Dose 25 MG; Start 05/07/17 at 09:00 Furosemide 40 mg 40 mg Q12 IV Last administered on 05/13/17 10:16; Admin Dose 40 MG; Start 05/08/17 at 09:00 Cefepime HCl (Maxipime 1gm/50 ml (Pmx)) 50 ml @ 100 mls/hr Q24H IVPB Last administered on 05/12/17 18:00; Admin Dose 100 MLS/HR; Start 05/08/17 at 18:00 Hydrocortisone (Solu-Cortef) 50 mg BID IV Last administered on 05/13/17 10:16; Admin Dose 50 MG; Start 05/10/17 at 21:00 Vitamin B Complex/ Vitamin C (Berocca) 1 cap DAILY PO Last administered on 10:15; Admin Dose 1 CAP; Start 05/13/17 at 09:00 Nystatin (Nystatin Susp) 5 ml QID PO Last administered on 05/12/17 22:10; Admin Dose 5 ML; Start 05/12/17 at 17:00 ALYSSA THOMPSON MD May 13, 2017 11:23
--- NOTE | 2017-05-13 14:03 | PN ---
Date/Time of Note Date/Time of Note DATE: 05/13/17 TIME: 13:59 Assessment/Plan VTE Prophylaxis VTE Prophylaxis Intervention: other Lines/Catheters IV Catheter Type (from [facility]): BHARTI CATH Urinary Cath still in place: Yes Reason Cath still needed: other (indicate) Assessment/Plan Chief Complaint/Hosp Course 1. acute on chronic hypoxemic respiratory failure: 2. NSTEMI: due to demand ischemia. 3. CHF/ fluid overload: due to diastolic heart failure 4. moderate 5. Arrhythmia and P afib, frequent PVC: currently in NSR. 6. ANEMIA 7. pneumonia, severe leukocytosis now. 8. sepsis and shock: off of pressors now 9. Anasarca 10. s/p cardiopulm arrest due to resp failure 11. renal failure 12. coagulopathy Rec: off of ASA due to active bleeding and severe anemia and coagulopathy. resp care as per PULM Team. correct lytes prn. keep K > 4, Mg > 2 CONT betablocker as tolerated. cardizem IV prn . thyroid supplement . tele monitoring HD/ ultrafiltration as per renal. transfuse prn Problems: Subjective 24 Hr Interval Summary Free Text/Dictation CARDIOLOGY FOLLOW UP NOTE: D/W staff , rhythm was reviewed. pt remains in NSR. no afib overnight Pt has been transferred to tele now. no chest pain or pressure or palpitations. pt still s/p trach on vent d/w pt's hearing is getting better. Objective: General: s/p trach on vent HEENT: NC/AT. . oropharynx with old blood and multiple lesions. . NECK: NO JVD. no stridor. s/p trach on vent CV: RRR. systolic ejection murmur; no gallop or rubs. PULM: + diffuse rhonchi. GI: SOFT, NT, ND, no rebound or guarding s/p PEG Extremity: 2+ B/L LE edema. no clubbing. neuro: awake and alert and responds appropriately Psych: calm rectal: deferred Derm: multiple echymosis Exam/Review of Systems Vital Signs Vitals Vital Signs Date Time Temp Pulse Resp B/P Pulse Ox O2 Delivery O2 Flow Rate FiO2 05/13/17 12:44 74 05/13/17 11:39 97.7 20 144/75 100 05/13/17 11:20 30 05/09/17 23:34 Bag Valve Mask Intake and Output 05/12/17 05/12/17 05/13/17 15:00 23:00 07:00 Intake Total 1050 ml 950 ml Output Total 600 ml 700 ml Balance 450 ml 250 ml Results Result Diagram: 05/13/17 0553 05/13/17 0553 Results 24 hrs Laboratory Tests Test 05/12/17 18:05 05/13/17 00:34 05/13/17 05:37 05/13/17 05:53 Bedside Glucose 169 159 138 White Blood Count 17.2 H Red Blood Count 2.58 L Hemoglobin 7.9 L Hematocrit 23.6 L Mean Corpuscular Volume 91.5 Mean Corpuscular Hemoglobin 30.6 Mean Corpuscular Hemoglobin Concent 33.5 Red Cell Distribution Width 19.2 H Platelet Count 272 Mean Platelet Volume 12.2 H Neutrophils % 87.6 H Lymphocytes % 5.2 L Monocytes % 4.5 Eosinophils % 0.1 Basophils % 0.2 Nucleated Red Blood Cells % 0.0 Neutrophils # 15.1 H Lymphocytes # 0.9 Monocytes # 0.8 Eosinophils # 0.0 Basophils # 0.0 Nucleated Red Blood Cells # 0.0 Sodium Level 139 Potassium Level 3.4 L Chloride Level 96 L Carbon Dioxide Level 32 H Anion Gap 14 Blood Urea Nitrogen 74 H Creatinine 1.71 H Glucose Level 123 Calcium Level 8.5 Phosphorus Level 3.2 Magnesium Level 2.0 Test 05/13/17 12:07 Bedside Glucose 148 Medications Medications Current Medications Aspirin (Aspirin) 325 mg DAILY NGT Last administered on 04/30/17 08:43; Admin Dose 325 MG; Start 04/12/17 at 09:00; Status Future Hold Metoprolol Tartrate (Lopressor) 5 mg Q4H PRN IV HR>110 Hold SBP<110 Last administered on 04/20/17 17:36; Admin Dose 5 MG; Start 04/11/17 at 13:30 Miscellaneous Information 1 ea NOTE XX ; Start 04/11/17 at 16:30 Glucose (Glutose) 15 gm Q15M PRN PO DECREASED GLUCOSE Last administered on 05/07 03:27; Admin Dose 15 GM; Start 04/11/17 at 16:30 Glucose (Glutose) 22.5 gm Q15M PRN PO DECREASED GLUCOSE; Start 04/11/17 at 16: 30 Dextrose (D50w Syringe) 25 ml Q15M PRN IV DECREASED GLUCOSE Last administered on 04/12/17 23:56; Admin Dose 25 ML; Start 04/11/17 at 16:30 Dextrose (D50w Syringe) 50 ml Q15M PRN IV DECREASED GLUCOSE; Start 04/11/17 at 16:30 Glucagon (Glucagen) 1 mg Q15M PRN IM DECREASED GLUCOSE; Start 04/11/17 at 16:30 Glucose (Glutose) 15 gm Q15M PRN BUCCAL DECREASED GLUCOSE; Start 04/11/17 at 16 :30 Metoclopramide HCl (Reglan) 10 mg Q6 IV Last administered on 05/13/17 11:59; Admin Dose 10 MG; Start 04/12/17 at 18:00 Insulin Aspart (Novolog Insulin Pen) NOVOLOG *MILD* ALGORI... Q6H SC Last administered on 05/13/17 12:12; Admin Dose 1 UNIT; Start 04/15/17 at 00:00 IV Flush (NS 10 ml) 10 ml PRN PRN IV FLUSH LINE; Start 04/15/17 at 13:00 Amiodarone HCl (Cordarone) 200 mg BID GTB Last administered on 05/13/17 10:15; Admin Dose 200 MG; Start 04/16/17 at 13:00 Heparin Sodium (Porcine) (Heparin (5000 Units/0.5 ml)) 5,000 unit BID SC Last administered on 04/30/17 21:03; Admin Dose 5,000 UNIT; Start 04/18/17 at 16:22; Status Future Hold Citalopram Hydrobromide (Celexa) 20 mg DAILY NGT Last administered on 05/13/17 10:15; Admin Dose 20 MG; Start 04/19/17 at 09:00 Hydralazine HCl (Apresoline) 20 mg Q6H PRN IV sbp ABOVE 160 Last administered on 05/07/17 12:23; Admin Dose 20 MG; Start 04/18/17 at 18:30 Chlorhexidine Gluconate (Peridex) 15 ml BID MT Last administered on 05/12/17 22:10; Admin Dose 15 ML; Start 04/22/17 at 21:00 Vitamin A/Vitamin D (Vitamin A & D Oint) 1 applic TID TOP Last administered on 05/13/17 10:14; Admin Dose 1 APPLIC; Start 04/22/17 at 21:00 Vitamin A/Vitamin D (Vitamin A & D Oint) 1 applic TID PRN TOP DRYNESS Last administered on 04/22/17 15:29; Admin Dose 1 APPLIC; Start 04/22/17 at 15:00 Acetaminophen/ Hydrocodone Bitart ([place] (5/325)) 1 tab Q6H GTB Last administered on 05/13/17 10:25; Admin Dose 1 TAB; Start 04/22/17 at 21:30 Spironolactone (Aldactone) 25 mg DAILY NGT Last administered on 05/13/17 10:15 ; Admin Dose 25 MG; Start 04/25/17 at 19:00; Status Future hold Diltiazem HCl (Cardizem Iv) 5 mg Q1H PRN IV HEART RATE GREATER THAN 120 Last administered on 04/29/17 06:17; Admin Dose 5 MG; Start 04/29/17 at 05:00 Metronidazole 500 mg 500 mg Q8 GTB Last administered on 05/13/17 05:39; Admin Dose 500 MG; Start 04/30/17 at 22:00 Sodium Chloride 1,000 ml @ 0 mls/hr Q0M IV Last administered on 05/01/17 03: 00; Admin Dose 1,000 MLS/HR; Start 05/01/17 at 03:00 Sodium Chloride (NS) 1,000 ml @ 0 mls/hr Q0M IV Last administered on 04:00; Admin Dose 1,000 MLS/HR; Start 05/01/17 at 03:30 Pantoprazole 40 mg 40 mg BID@06,18 IV Last administered on 05/13/17 05:39; Admin Dose 40 MG; Start 05/02/17 at 15:00 Diltiazem HCl (Cardizem-D5W 125 Mg/125 ml Drip) 125 ml @ 5 mls/hr TITRATE IV Last administered on 05/02/17 19:11; Admin Dose 5 MLS/HR; Start 05/02/17 at 19: 00 Valacyclovir HCl (Valtrex) 1,000 mg DAILY GTB Last administered on 05/13/17 10: 14; Admin Dose 1,000 MG; Start 05/06/17 at 09:00 Metoprolol Tartrate (Lopressor) 25 mg QID GTB Last administered on 05/13/17 10: 25; Admin Dose 25 MG; Start 05/07/17 at 09:00 Furosemide 40 mg 40 mg Q12 IV Last administered on 05/13/17 10:16; Admin Dose 40 MG; Start 05/08/17 at 09:00 Cefepime HCl (Maxipime 1gm/50 ml (Pmx)) 50 ml @ 100 mls/hr Q24H IVPB Last administered on 05/12/17 18:00; Admin Dose 100 MLS/HR; Start 05/08/17 at 18:00 Hydrocortisone (Solu-Cortef) 50 mg BID IV Last administered on 05/13/17 10:16; Admin Dose 50 MG; Start 05/10/17 at 21:00 Vitamin B Complex/ Vitamin C (Berocca) 1 cap DAILY PO Last administered on 10:15; Admin Dose 1 CAP; Start 05/13/17 at 09:00 Nystatin (Nystatin Susp) 5 ml QID PO Last administered on 05/12/17 22:10; Admin Dose 5 ML; Start 05/12/17 at 17:00 FRANCISCO BLACKWOOD MD May 13, 2017 14:03
--- NOTE | 2017-05-13 17:14 | CONS ---
Date/Time of Note Date/Time of Note DATE: 05/13/17 TIME: 17:11 Assessment/Plan Assessment/Plan Chief Complaint/Hosp Course ID PROGRESS NOTE CURRENT ABX=> Flagyl, Valtrex, + Cefepime #6 + Colistin INH #5 * She is completing a 10 day course of ABX for Sputum 05/06/17 (+)PSAR ASP PNA , s/p sepsis in ICU Cancidas -> DC 05/10 Merrem -> DC'd 05/08 Merrem #14 total -> DC'd 04/26=> Restarted 24H INTERVAL SUMMARY/HOSPITAL COURSE * Alert and responsive, facial/lip edema has improved, lip lesions still healing. No fevers, WBC remains elevated -> suspect partial IV steroids demargination * 05/11/17 CXR: Prominent interstitial markings are seen. No dense consolidation or pleural effusion is seen. * 05/06 SPUTUM RESPIRATORY CULTURE Final Organism 1 PSEUDOMONAS AERUGINOSA QUANTITY 2+ P.AERUG M.I.C. RX --------- --- AMIKACIN <=2 S AZTREONAM R CEFEPIME 8 S CEFTAZIDIME 8 S CIPROFLOXACIN I GENTAMICIN <=1 S IMIPENEM >=16 R LEVOFLOXACIN >=8 R TOBRAMYCIN <=1 S PIPERACILLIN/TAZOBACTAM 32 S PHYSICAL EXAMINATION: GENERAL: 66 yo F, stable on the Vent HEENT: Atraumatic, (+)Lip crusting lesions healing NECK: (+)Trach in place secure to VENT CHEST: Rise symmetrical w/coarse BS, scattered rales/rhonchi ABDOMEN: Soft, peg EXTREMITIES: Warm, moves extremities ID ASSESSMENT: 66 yo F w/PMHx tongue cancer, chronic trach re-admit [facility] from [facility] with: 1. s/p Acute severe sepsis/shock on admission w/(+)fever, tachycardia, lactic acidosis, leukocytosis, (+)troponin leak = RESOLVING * Leukocytosis persisting -> IV Steroids onboard * Fungemia => repeat BCx negative 2. Anasarca w/increased facial edema/bilateral lip edema w/resolving HSV lip lesions resolving * -- facial edema is worse due to patient preference while sitting up to lean her head forward w/neck flexion over her trach/trach-tie -- this position compromised jugular venous return. 3. Acute respiratory failure = recurrent issue s/p intubation x3rd episode w/ extubation, now with Trach secure to Vent 3. HCAP=> Recurrent Aspiration PNA post emesis // Hx of GNR tracheobronchitis * Sputum 04/21/17 (+)Yeast * Sputum 05/06/17 (+)PSAR 4. Acute CHF w/elevated BNP 8000 in setting tachycardia, sepsis, pulmonary edema on CXR 5. s/p Nausea w/emesis on admission -> RESOLVED * Query: DM Autonomic Gastroparesis * GERD 6. Cholelithiasis w/dilated CBD->HIDA scan (+cholecystitis 04/12/17=> s/p Mansi Drain 04/17/17, no surgery per GI 7. Acute renal failure = started on HD 8. Dysphagia sp PEG placement 9. Paroxysmal Afib 10. NSTEMI in setting sepsis, tachycardia, acute hypoxic respiratory failure, acute CHF exacerbation 11. Elevated glucose - iatrogenic diabetes while on IV steroids 12. Leukocytosis = partial steroids demargination 13. Lip lesions => consistent w/herpes simplex virus outbreak -> On Valtrex HEALING 14. s/p GIB associates with Acute on chronic anemia secondary to AVM ==> stopped , status post EGD on May 02 with injection of epinephrine 15. Recent (+)C.Diff on 03/07/16 (treated) w/(-)C.Diff 03/20/17 (-) MRSA Nares screen (04/03/17) INVASIVES: Trach, PEG, FC, R-FEM Amrit (05/04/17) ABX ALLERGY: Iodine CURRENT ABX: =>CURRENT ABX=> Flagyl, Valtrex, + Cefepime #6 + Colistin INH #5 Cancidas -> DC 05/10 Merrem -> DC'd 05/08 Merrem #14 total -> DC'd 04/26=> Restarted ID PLAN=> She is completing a 10 day course of ABX for Sputum 05/06/17 (+)PSAR ASP PNA , s/p sepsis in ICU 1. Continue Valtrex until lip lesions healed, continue empiric Flagyl while on ABX for PSAR PNA * Continue current ABX --PSAR is sensitive to Cefepime + Colistin INH 2. Hx of C.Diff-> Keep on Flagyl while PSAR Trach decolonization ABX completed 3. Added Nystain PO oral swish spit + Vit B/C complex -- lip/mouth lesions healing . . Problems: Consultation Date/Type/Reason Admit Date/Time Apr 11, 2017 at 11:28 Initial Consult Date 04/11/17 Type of Consultation: ID Referring Provider: NINA MACIEL DO Exam/Review of Systems Vital Signs Vitals Vital Signs Date Time Temp Pulse Resp B/P Pulse Ox O2 Delivery O2 Flow Rate FiO2 05/13/17 17:00 78 05/13/17 15:25 98.0 20 143/63 100 05/13/17 15:22 30 05/09/17 23:34 Bag Valve Mask Intake and Output 05/12/17 05/12/17 05/13/17 15:00 23:00 07:00 Intake Total 1050 ml 950 ml Output Total 600 ml 700 ml Balance 450 ml 250 ml Results Result Diagram: 05/13/17 0553 05/13/17 0553 Results 24 hrs Laboratory Tests Test 05/12/17 18:05 05/13/17 00:34 05/13/17 05:37 05/13/17 05:53 Bedside Glucose 169 159 138 White Blood Count 17.2 H Red Blood Count 2.58 L Hemoglobin 7.9 L Hematocrit 23.6 L Mean Corpuscular Volume 91.5 Mean Corpuscular Hemoglobin 30.6 Mean Corpuscular Hemoglobin Concent 33.5 Red Cell Distribution Width 19.2 H Platelet Count 272 Mean Platelet Volume 12.2 H Neutrophils % 87.6 H Lymphocytes % 5.2 L Monocytes % 4.5 Eosinophils % 0.1 Basophils % 0.2 Nucleated Red Blood Cells % 0.0 Neutrophils # 15.1 H Lymphocytes # 0.9 Monocytes # 0.8 Eosinophils # 0.0 Basophils # 0.0 Nucleated Red Blood Cells # 0.0 Sodium Level 139 Potassium Level 3.4 L Chloride Level 96 L Carbon Dioxide Level 32 H Anion Gap 14 Blood Urea Nitrogen 74 H Creatinine 1.71 H Glucose Level 123 Calcium Level 8.5 Phosphorus Level 3.2 Magnesium Level 2.0 Test 05/13/17 12:07 Bedside Glucose 148 Medications Medications Current Medications Aspirin (Aspirin) 325 mg DAILY NGT Last administered on 04/30/17 08:43; Admin Dose 325 MG; Start 04/12/17 at 09:00; Status Future Hold Metoprolol Tartrate (Lopressor) 5 mg Q4H PRN IV HR>110 Hold SBP<110 Last administered on 04/20/17 17:36; Admin Dose 5 MG; Start 04/11/17 at 13:30 Miscellaneous Information 1 ea NOTE XX ; Start 04/11/17 at 16:30 Glucose (Glutose) 15 gm Q15M PRN PO DECREASED GLUCOSE Last administered on 05/07 03:27; Admin Dose 15 GM; Start 04/11/17 at 16:30 Glucose (Glutose) 22.5 gm Q15M PRN PO DECREASED GLUCOSE; Start 04/11/17 at 16: 30 Dextrose (D50w Syringe) 25 ml Q15M PRN IV DECREASED GLUCOSE Last administered on 04/12/17 23:56; Admin Dose 25 ML; Start 04/11/17 at 16:30 Dextrose (D50w Syringe) 50 ml Q15M PRN IV DECREASED GLUCOSE; Start 04/11/17 at 16:30 Glucagon (Glucagen) 1 mg Q15M PRN IM DECREASED GLUCOSE; Start 04/11/17 at 16:30 Glucose (Glutose) 15 gm Q15M PRN BUCCAL DECREASED GLUCOSE; Start 04/11/17 at 16 :30 Metoclopramide HCl (Reglan) 10 mg Q6 IV Last administered on 05/13/17 11:59; Admin Dose 10 MG; Start 04/12/17 at 18:00 Insulin Aspart (Novolog Insulin Pen) NOVOLOG *MILD* ALGORI... Q6H SC Last administered on 05/13/17 12:12; Admin Dose 1 UNIT; Start 04/15/17 at 00:00 IV Flush (NS 10 ml) 10 ml PRN PRN IV FLUSH LINE; Start 04/15/17 at 13:00 Amiodarone HCl (Cordarone) 200 mg BID GTB Last administered on 05/13/17 10:15; Admin Dose 200 MG; Start 04/16/17 at 13:00 Heparin Sodium (Porcine) (Heparin (5000 Units/0.5 ml)) 5,000 unit BID SC Last administered on 04/30/17 21:03; Admin Dose 5,000 UNIT; Start 04/18/17 at 16:22; Status Future Hold Citalopram Hydrobromide (Celexa) 20 mg DAILY NGT Last administered on 05/13/17 10:15; Admin Dose 20 MG; Start 04/19/17 at 09:00 Hydralazine HCl (Apresoline) 20 mg Q6H PRN IV sbp ABOVE 160 Last administered on 05/07/17 12:23; Admin Dose 20 MG; Start 04/18/17 at 18:30 Chlorhexidine Gluconate (Peridex) 15 ml BID MT Last administered on 05/12/17 22:10; Admin Dose 15 ML; Start 04/22/17 at 21:00 Vitamin A/Vitamin D (Vitamin A & D Oint) 1 applic TID TOP Last administered on 05/13/17 13:58; Admin Dose 1 APPLIC; Start 04/22/17 at 21:00 Vitamin A/Vitamin D (Vitamin A & D Oint) 1 applic TID PRN TOP DRYNESS Last administered on 04/22/17 15:29; Admin Dose 1 APPLIC; Start 04/22/17 at 15:00 Acetaminophen/ Hydrocodone Bitart ([place] (5/325)) 1 tab Q6H GTB Last administered on 05/13/17 16:04; Admin Dose 1 TAB; Start 04/22/17 at 21:30 Spironolactone (Aldactone) 25 mg DAILY NGT Last administered on 05/13/17 10:15 ; Admin Dose 25 MG; Start 04/25/17 at 19:00; Status Future hold Diltiazem HCl (Cardizem Iv) 5 mg Q1H PRN IV HEART RATE GREATER THAN 120 Last administered on 04/29/17 06:17; Admin Dose 5 MG; Start 04/29/17 at 05:00 Metronidazole 500 mg 500 mg Q8 GTB Last administered on 05/13/17 13:58; Admin Dose 500 MG; Start 04/30/17 at 22:00 Sodium Chloride 1,000 ml @ 0 mls/hr Q0M IV Last administered on 05/01/17 03: 00; Admin Dose 1,000 MLS/HR; Start 05/01/17 at 03:00 Sodium Chloride (NS) 1,000 ml @ 0 mls/hr Q0M IV Last administered on 04:00; Admin Dose 1,000 MLS/HR; Start 05/01/17 at 03:30 Pantoprazole 40 mg 40 mg BID@06,18 IV Last administered on 05/13/17 05:39; Admin Dose 40 MG; Start 05/02/17 at 15:00 Diltiazem HCl (Cardizem-D5W 125 Mg/125 ml Drip) 125 ml @ 5 mls/hr TITRATE IV Last administered on 05/02/17 19:11; Admin Dose 5 MLS/HR; Start 05/02/17 at 19: 00 Valacyclovir HCl (Valtrex) 1,000 mg DAILY GTB Last administered on 05/13/17 10: 14; Admin Dose 1,000 MG; Start 05/06/17 at 09:00 Metoprolol Tartrate (Lopressor) 25 mg QID GTB Last administered on 05/13/17 13: 58; Admin Dose 25 MG; Start 05/07/17 at 09:00 Furosemide 40 mg 40 mg Q12 IV Last administered on 05/13/17 10:16; Admin Dose 40 MG; Start 05/08/17 at 09:00 Cefepime HCl (Maxipime 1gm/50 ml (Pmx)) 50 ml @ 100 mls/hr Q24H IVPB Last administered on 05/12/17 18:00; Admin Dose 100 MLS/HR; Start 05/08/17 at 18:00 Hydrocortisone (Solu-Cortef) 50 mg BID IV Last administered on 05/13/17 10:16; Admin Dose 50 MG; Start 05/10/17 at 21:00 Vitamin B Complex/ Vitamin C (Berocca) 1 cap DAILY PO Last administered on 10:15; Admin Dose 1 CAP; Start 05/13/17 at 09:00 Nystatin (Nystatin Susp) 5 ml QID PO Last administered on 05/13/17 13:59; Admin Dose 5 ML; Start 05/12/17 at 17:00 MARGOT WILLS NP May 13, 2017 17:14
[2017-05-13] MEDS: CEFEPIME 1GM/50 ML (PMX) 50 ML IVPB SCH (17:25)
--- NOTE | 2017-05-13 20:20 | PN ---
Date/Time of Note Date/Time of Note DATE: 05/13/17 TIME: 20:19 Assessment/Plan Lines/Catheters IV Catheter Type (from [facility]): BHARTI CATH Latif in Place (from [facility]): Yes Assessment/Plan Chief Complaint/Hosp Course 1. Cholelithiasis ? cholecystitis: Ct abd: sludge and small stones in the gallbladder. No gallbladder wall thickening is noted with some pericholecystic fluid is present. Patient off pressors; GT/OGT no output; HIDA positive; IR drain placement cancelled by radiologist since US without evidence of infection. Therefore, Dr. Guadalupe believes the HIDA is false positive. Tolerating tube feeds; no abdominal pain/discomfort; LFT's increased, bili nl (s/p code with blood loss); +bowel function -No surgical intervention required at this time but will follow closely 2. Pneumonia: Recurrent; no fevers; reintubated; less secretion sputum cx: PSEUDOMONAS AERUGINOSA, K PNEUMO ESBL, NASRIN GLABRATA; appears comfortable -pulmonary toilet -abx per ID 3. Vent dependent respiratory failure: 2/2 aspiration PNA+ CHF;reintubated and extubated, coded 04/21 and 05/01; currently reintubated -as above 4. Septic shock: resolved -on abx -supportive 5. Uncontrolled Afib: s/p amiodarone drip, on oral amiodarone; episodes of Afib Now SR -medical optimization 6. Elevated troponin:NSTEMI; septic shock/demand ischemia -trend 7. Leukocytosis with lactic acidosis: 2nd Fungemia + pneumonia + steroids vs. other -abx, antifungals -judicious fluid management -supportive measures 8. KEYONNA: likely 2/2 septic shock; s/p code; HD yesterday; good urine output; cr improving -judicious fluid management -avoid nephrotoxic agents 9. CHF: BNP elevated -judicious fluid management -medical optimization 10. Adrenal Insufficiency s/p steroids 11. Hypocalcemia with hypoalbuminemia -optimize nutrition 12. Hypothyroidism -Synthroid 13. Macrocytic anemia: chronic vs. dilutional vs. acute bleed vs. b12/folate deficiency;h/h lower -monitor -transfuse as needed 14. Thrombocytosis: 2/2 inflammatory vs. drug induced vs. other -monitor -bleeding precautions -supportive 15. Hypoalbuminemia: 2/2 malnutrition +/- inflammation; decreased; tolerating tf ; -nutrition optimization -as above 16. Encephalopathy: 2/2 toxic metabolic vs. anoxic injury; CT: No acute intracranial hemorrhage or mass effect. Mild chronic microvascular disease and intracranial atherosclerosis; EEG shows no seizure activity -supportive 17. Bilateral upper extremity edema: likely 2/2 decreased movement vs. thrombosis; initial doppler negative, repeat doppler left arm (+) Thrombus -elevate extremities -supportive 18. Oral lesions Thank you, Problems: Subjective 24 Hr Interval Summary Awake and responsive. Comfortable on vent. Bowel function. Tolerating tf. No abdominal pain/discomfort, sz, metzger, dizziness, sob, congested cough, n/v/d, dysuria, fevers, chills. Exam/Review of Systems Vital Signs Vitals Vital Signs Date Time Temp Pulse Resp B/P Pulse Ox O2 Delivery O2 Flow Rate FiO2 05/13/17 17:24 69 16 99 30 05/13/17 15:25 98.0 143/63 05/09/17 23:34 Bag Valve Mask Intake and Output 05/12/17 05/12/17 05/13/17 15:00 23:00 07:00 Intake Total 1050 ml 950 ml Output Total 600 ml 700 ml Balance 450 ml 250 ml Exam Free Text/Dictation Constitutional: somnolent, appears comfortable Head: atraumatic, normocephalic Eyes: PERRL, nl lids, nl sclera ENMT: No mucosa pink and moist (pink and moist with healing perioral lesions/ dried blood) Neck: non-tender, supple, tracheostomy Respiratory: diminished, comfortable on vent Cardiovascular: nl pulses, regular rate and rhythm, NSR, Gastrointestinal: min distended, GT tubes site no erythema, no drainage, non tenderness, bowel sounds x 4 quads Genitourinary - Female: nl external genitalia Musculoskeletal: nl extremities to inspection Extremities: normal pulses, bilateral upper/lower extremity edema (min improvement) Neurological: responsive Skin: nl turgor, No rash or lesions Lymph: nl lymph nodes Results Result Diagram: 05/13/17 0553 05/13/17 0553 PATRICK QUINTERO MD May 13, 2017 20:20
[2017-05-14] VITALS (24 sets, daily range): BP systolic 114–157; BP diastolic 56–69; PULSE 71–81; RESP 16–21
[2017-05-14] MEDS: METOCLOPRAMIDE 10 MG INJ IV SCH ×5 (00:17→23:53)
[2017-05-14] MEDS: INSULIN ASPART [NOVOLOG] 3 ML PEN SC SCH ×5 (00:19→23:53)
[2017-05-14] MEDS: LEVALBUTEROL (HFA) 15 GM INHALER INH SCH ×4 (01:03→19:31)
[2017-05-14] MEDS: HYDROCODONE/APAP (5/325) TAB GTB SCH ×4 (04:00→20:41)
[2017-05-14] MEDS: PANTOPRAZOLE 40 MG INJ IV SCH ×2 (06:25→18:08)
[2017-05-14] MEDS: metroNIDAZOLE 500 MG TAB GTB SCH ×3 (06:26→20:41)
[2017-05-14] MEDS: LEVOTHYROXINE 75 MCG TAB GTB SCH (06:26)
--- NOTE | 2017-05-14 08:01 | PN ---
Date/Time of Note Date/Time of Note DATE: 05/14/17 TIME: 07:57 Assessment/Plan VTE Prophylaxis VTE Prophylaxis Intervention: other Lines/Catheters IV Catheter Type (from Nrs): PICC Line Central line still needed: Yes Urinary Cath still in place: Yes Reason Cath still needed: other (indicate) Assessment/Plan Chief Complaint/Hosp Course 1. acute on chronic hypoxemic respiratory failure: 2. NSTEMI: due to demand ischemia. 3. CHF/ fluid overload: due to diastolic heart failure 4. moderate 5. Arrhythmia and P afib, frequent PVC: currently in NSR. 6. ANEMIA 7. pneumonia, severe leukocytosis now. 8. sepsis and shock: off of pressors now 9. Anasarca 10. s/p cardiopulm arrest due to resp failure 11. renal failure on HD now. 12. coagulopathy Rec: off of ASA due to active bleeding and severe anemia and coagulopathy. resp care as per PULM Team. correct lytes prn. keep K > 4, Mg > 2 CONT betablocker as tolerated. . cont thyroid supplement . tele monitoring HD/ ultrafiltration as per renal. transfuse prn THANK YOU. Problems: Subjective 24 Hr Interval Summary Free Text/Dictation CARDIOLOGY FOLLOW UP NOTE: D/W staff , d/w . rhythm was reviewed. pt remains in NSR. no afib overnight again noted. Pt has been in tele now. no chest pain or pressure or palpitations. pt still s/p trach on vent d/w Objective: General: s/p trach on vent HEENT: NC/AT. . oropharynx with multiple lesions. . NECK: NO JVD. no stridor. s/p trach on vent CV: RRR. systolic ejection murmur; no gallop or rubs. PULM: + diffuse rhonchi. no wheezes. GI: SOFT, NT, ND, no rebound or guarding s/p PEG Extremity: 1-2+ B/L LE edema. no clubbing. neuro: awake and alert and responds appropriately Psych: calm rectal: deferred Derm: multiple echymosis Exam/Review of Systems Vital Signs Vitals Vital Signs Date Time Temp Pulse Resp B/P Pulse Ox O2 Delivery O2 Flow Rate FiO2 05/14/17 07:32 96.9 77 20 125/69 100 05/14/17 05:02 30 Intake and Output 05/13/17 05/13/17 05/14/17 15:00 23:00 07:00 Intake Total 300 ml 1050 ml Output Total 4000 ml 500 ml Balance -3700 ml 550 ml Results Result Diagram: 05/13/17 0553 05/13/17 0553 Results 24 hrs Laboratory Tests Test 05/13/17 12:07 05/13/17 17:36 05/14/17 00:12 05/14/17 06:25 Bedside Glucose 148 177 199 212 Medications Medications Current Medications Aspirin (Aspirin) 325 mg DAILY NGT Last administered on 04/30/17 08:43; Admin Dose 325 MG; Start 04/12/17 at 09:00; Status Future Hold Metoprolol Tartrate (Lopressor) 5 mg Q4H PRN IV HR>110 Hold SBP<110 Last administered on 04/20/17 17:36; Admin Dose 5 MG; Start 04/11/17 at 13:30 Miscellaneous Information 1 ea NOTE XX ; Start 04/11/17 at 16:30 Glucose (Glutose) 15 gm Q15M PRN PO DECREASED GLUCOSE Last administered on 05/07 03:27; Admin Dose 15 GM; Start 04/11/17 at 16:30 Glucose (Glutose) 22.5 gm Q15M PRN PO DECREASED GLUCOSE; Start 04/11/17 at 16: 30 Dextrose (D50w Syringe) 25 ml Q15M PRN IV DECREASED GLUCOSE Last administered on 04/12/17 23:56; Admin Dose 25 ML; Start 04/11/17 at 16:30 Dextrose (D50w Syringe) 50 ml Q15M PRN IV DECREASED GLUCOSE; Start 04/11/17 at 16:30 Glucagon (Glucagen) 1 mg Q15M PRN IM DECREASED GLUCOSE; Start 04/11/17 at 16:30 Glucose (Glutose) 15 gm Q15M PRN BUCCAL DECREASED GLUCOSE; Start 04/11/17 at 16 :30 Metoclopramide HCl (Reglan) 10 mg Q6 IV Last administered on 05/14/17 06:25; Admin Dose 10 MG; Start 04/12/17 at 18:00 Insulin Aspart (Novolog Insulin Pen) NOVOLOG *MILD* ALGORI... Q6H SC Last administered on 05/14/17 06:28; Admin Dose 2 UNIT; Start 04/15/17 at 00:00 IV Flush (NS 10 ml) 10 ml PRN PRN IV FLUSH LINE; Start 04/15/17 at 13:00 Amiodarone HCl (Cordarone) 200 mg BID GTB Last administered on 05/13/17 21:30; Admin Dose 200 MG; Start 04/16/17 at 13:00 Heparin Sodium (Porcine) (Heparin (5000 Units/0.5 ml)) 5,000 unit BID SC Last administered on 04/30/17 21:03; Admin Dose 5,000 UNIT; Start 04/18/17 at 16:22; Status Future Hold Citalopram Hydrobromide (Celexa) 20 mg DAILY NGT Last administered on 05/13/17 10:15; Admin Dose 20 MG; Start 04/19/17 at 09:00 Hydralazine HCl (Apresoline) 20 mg Q6H PRN IV sbp ABOVE 160 Last administered on 05/07/17 12:23; Admin Dose 20 MG; Start 04/18/17 at 18:30 Chlorhexidine Gluconate (Peridex) 15 ml BID MT Last administered on 05/13/17 21 :32; Admin Dose 15 ML; Start 04/22/17 at 21:00 Vitamin A/Vitamin D (Vitamin A & D Oint) 1 applic TID TOP Last administered on 05/13/17 21:31; Admin Dose 1 APPLIC; Start 04/22/17 at 21:00 Vitamin A/Vitamin D (Vitamin A & D Oint) 1 applic TID PRN TOP DRYNESS Last administered on 04/22/17 15:29; Admin Dose 1 APPLIC; Start 04/22/17 at 15:00 Acetaminophen/ Hydrocodone Bitart ([place] (5/325)) 1 tab Q6H GTB Last administered on 05/14/17 04:00; Admin Dose 1 TAB; Start 04/22/17 at 21:30 Spironolactone (Aldactone) 25 mg DAILY NGT Last administered on 05/13/17 10:15 ; Admin Dose 25 MG; Start 04/25/17 at 19:00; Status Future hold Diltiazem HCl (Cardizem Iv) 5 mg Q1H PRN IV HEART RATE GREATER THAN 120 Last administered on 04/29/17 06:17; Admin Dose 5 MG; Start 04/29/17 at 05:00 Metronidazole 500 mg 500 mg Q8 GTB Last administered on 05/14/17 06:26; Admin Dose 500 MG; Start 04/30/17 at 22:00 Sodium Chloride 1,000 ml @ 0 mls/hr Q0M IV Last administered on 05/01/17 03: 00; Admin Dose 1,000 MLS/HR; Start 05/01/17 at 03:00 Sodium Chloride (NS) 1,000 ml @ 0 mls/hr Q0M IV Last administered on 04:00; Admin Dose 1,000 MLS/HR; Start 05/01/17 at 03:30 Pantoprazole 40 mg 40 mg BID@06,18 IV Last administered on 05/14/17 06:25; Admin Dose 40 MG; Start 05/02/17 at 15:00 Diltiazem HCl (Cardizem-D5W 125 Mg/125 ml Drip) 125 ml @ 5 mls/hr TITRATE IV Last administered on 05/02/17 19:11; Admin Dose 5 MLS/HR; Start 05/02/17 at 19: 00 Valacyclovir HCl (Valtrex) 1,000 mg DAILY GTB Last administered on 05/13/17 10: 14; Admin Dose 1,000 MG; Start 05/06/17 at 09:00 Metoprolol Tartrate (Lopressor) 25 mg QID GTB Last administered on 05/13/17 21: 29; Admin Dose 25 MG; Start 05/07/17 at 09:00 Furosemide 40 mg 40 mg Q12 IV Last administered on 05/13/17 21:30; Admin Dose 40 MG; Start 05/08/17 at 09:00 Cefepime HCl (Maxipime 1gm/50 ml (Pmx)) 50 ml @ 100 mls/hr Q24H IVPB Last administered on 05/13/17 17:25; Admin Dose 100 MLS/HR; Start 05/08/17 at 18:00 Hydrocortisone (Solu-Cortef) 50 mg BID IV Last administered on 05/13/17 21:00; Admin Dose 50 MG; Start 05/10/17 at 21:00 Vitamin B Complex/ Vitamin C ([place]) 1 cap DAILY PO Last administered on 10:15; Admin Dose 1 CAP; Start 05/13/17 at 09:00 Nystatin (Nystatin Susp) 5 ml QID PO Last administered on 05/13/17 21:31; Admin Dose 5 ML; Start 05/12/17 at 17:00 FRANCISCO BLACKWOOD MD May 14, 2017 08:01
[2017-05-14 08:23] LABS: BASOPHILS % 0.1 % (0.0-2.0); EOSINOPHILS % 0.1 % (0.0-7.0); HEMATOCRIT 21.8 % (37.0-47.0); LYMPHOCYTES # 0.8 10^3/ul (0.8-2.9); LYMPHOCYTES % 5.3 % (15.0-51.0); MEAN CORPUSCULAR HEMOGLOBIN 29.7 pg (29.0-33.0); MEAN CORPUSCULAR HGB CONC 32.1 g/dl (32.0-37.0); MEAN CORPUSCULAR VOLUME 92.4 fl (82.0-101.0); MEAN PLATELET VOLUME 12.5 fl (7.4-10.4); MONOCYTE # 0.8 10^3/ul (0.3-0.9); MONOCYTES % 5.2 % (0.0-11.0); NEUTROPHIL # 13.3 10^3/ul (1.6-7.5); NEUTROPHILS % 85.2 % (39.0-77.0); PLATELET COUNT 272 10^3/UL (140-415); RED BLOOD COUNT 2.36 10^6/ul (4.20-5.40); RED CELL DISTRIBUTION WIDTH 19.5 % (11.5-14.5); WHITE BLOOD COUNT 15.6 10^3/ul (4.8-10.8)
[2017-05-14 08:47] LABS: CALCIUM 8.3 mg/dl (8.4-10.2); CREATININE 1.72 mg/dl (0.44-1.00); MAGNESIUM 1.9 mg/dl (1.7-2.5); POTASSIUM 3.6 mmol/L (3.5-5.1)
[2017-05-14] MEDS: COLISTIMETHATE (25 MG/ML INHAL SYG) NEB SCH ×2 (09:00→19:35)
[2017-05-14] MEDS: AMIODARONE 200 MG TAB GTB SCH ×2 (10:22→20:42)
[2017-05-14] MEDS: METOPROLOL 25 MG TAB GTB SCH ×4 (10:23→20:43)
[2017-05-14] MEDS: VALACYCLOVIR 500 MG TAB GTB SCH (10:23)
[2017-05-14] MEDS: CHLORHEXIDINE GLUCONATE 15 ML UD CUP MT SCH ×2 (10:28→20:40)
[2017-05-14] MEDS: FUROSEMIDE 40 MG INJ IV SCH ×2 (10:28→20:42)
[2017-05-14] MEDS: HYDROCORTISONE 100 MG INJ IV SCH ×2 (10:28→20:40)
[2017-05-14] MEDS: SPIRONOLACTONE 25 MG TAB NGT SCH (10:29)
[2017-05-14] MEDS: VITAMIN B COMPLEX/VIT C CAP PO SCH (10:30)
[2017-05-14] MEDS: NYSTATIN SUSP 5 ML CUP PO SCH ×4 (10:30→20:41)
[2017-05-14] MEDS: VITAMIN A & D 5 GM OINT PACKET TOP SCH ×3 (10:30→20:41)
[2017-05-14] MEDS: CITALOPRAM 20 MG TAB NGT SCH (10:30)
[2017-05-14 12:27] LABS: ABNORMAL IP MESSAGE 1; BASOPHILS % 0.1 % (0.0-2.0); EOSINOPHILS # 0.1 10^3/ul (0.0-0.5); EOSINOPHILS % 0.3 % (0.0-7.0); HEMATOCRIT 21.5 % (37.0-47.0); LYMPHOCYTES # 1.1 10^3/ul (0.8-2.9); LYMPHOCYTES % 6.7 % (15.0-51.0); MEAN CORPUSCULAR HEMOGLOBIN 29.5 pg (29.0-33.0); MEAN CORPUSCULAR HGB CONC 32.1 g/dl (32.0-37.0); MEAN CORPUSCULAR VOLUME 91.9 fl (82.0-101.0); MEAN PLATELET VOLUME 11.6 fl (7.4-10.4); MONOCYTE # 1.3 10^3/ul (0.3-0.9); NEUTROPHIL # 13.2 10^3/ul (1.6-7.5); NEUTROPHILS % 80.5 % (39.0-77.0); PLATELET COUNT 288 10^3/UL (140-415); RED BLOOD COUNT 2.34 10^6/ul (4.20-5.40); RED CELL DISTRIBUTION WIDTH 19.7 % (11.5-14.5); WHITE BLOOD COUNT 16.3 10^3/ul (4.8-10.8)
[2017-05-14 12:34] LABS: HEMOGLOBIN 6.9 g/dl (12.0-16.0)
--- NOTE | 2017-05-14 15:11 | CONS ---
Date/Time of Note Date/Time of Note DATE: 05/14/17 TIME: 15:09 Assessment/Plan Assessment/Plan Additional Assessment/Plan Ventilator setting; AC of 16, tidal volume 500, PEEP of 5, 30% FiO2. Next Assessment recommendations; 1. Patient admitted for pneumonia. Currently on appropriate antibiotic regimen. 2. Generalized anasarca. 3. End-stage renal disease, on hemodialysis. 4. Chronic respiratory failure. 5. History remote history of renal cell cancer. 6. Hypo-thyroidism. 7. History of redo tracheostomy 2. 8. Generalized deconditioning. Continue current treatment. Consultation Date/Type/Reason Admit Date/Time Apr 11, 2017 at 11:28 Initial Consult Date 05/01/17 Type of Consultation: Pulmonary Referring Provider: NINA MACIEL DO 24 HR Interval Summary Free Text/Dictation Patient condition stable. Remains awake alert. Has remained hemodynamically stable. General exam; elderly woman, on ventilator via tracheostomy, awake and alert, currently in no distress. Exam/Review of Systems Vital Signs Vitals Vital Signs Date Time Temp Pulse Resp B/P Pulse Ox O2 Delivery O2 Flow Rate FiO2 05/14/17 12:36 78 05/14/17 11:43 98.2 21 132/65 98 05/14/17 07:20 30 Intake and Output 05/13/17 05/13/17 05/14/17 14:59 22:59 06:59 Intake Total 300 ml 1050 ml Output Total 4000 ml 500 ml Balance -3700 ml 550 ml Exam HEENT exam; supple neck, no JVD. No lymphadenopathy. Midline trachea. Patient is stable upper and lower lip mild excoriations. Tracheostomy in place. Chest exam; diminished but clear breath sound. S1-S2 audible, no murmurs. Regular rhythm. move all 4 extremity's on command. Abdomen exam; soft, no organomegaly. G-tube in place. Bowel sounds audible. Extremity exam; 3+ anasarca. Patient does have multiple ecchymosis involving all 4 extremities. LANDMEN exam; patient is awake and alert Results Result Diagram: 05/14/17 1219 05/14/17 0730 Results 24 hrs Laboratory Tests Test 05/13/17 17:36 05/14/17 00:12 05/14/17 06:25 05/14/17 07:30 Bedside Glucose 177 199 212 White Blood Count 15.6 H Red Blood Count 2.36 L Hemoglobin 7.0 L Hematocrit 21.8 L Mean Corpuscular Volume 92.4 Mean Corpuscular Hemoglobin 29.7 Mean Corpuscular Hemoglobin Concent 32.1 Red Cell Distribution Width 19.5 H Platelet Count 272 Mean Platelet Volume 12.5 H Neutrophils % 85.2 H Lymphocytes % 5.3 L Monocytes % 5.2 Eosinophils % 0.1 Basophils % 0.1 Nucleated Red Blood Cells % 0.0 Neutrophils # 13.3 H Lymphocytes # 0.8 Monocytes # 0.8 Eosinophils # 0.0 Basophils # 0.0 Nucleated Red Blood Cells # 0.0 Sodium Level 139 Potassium Level 3.6 Chloride Level 97 Carbon Dioxide Level 30 Anion Gap 16 Blood Urea Nitrogen 78 H Creatinine 1.72 H Glucose Level 179 Calcium Level 8.3 L Phosphorus Level 3.0 Magnesium Level 1.9 Test 05/14/17 12:19 05/14/17 12:20 White Blood Count 16.3 H Red Blood Count 2.34 L Hemoglobin 6.9 *L Hematocrit 21.5 L Mean Corpuscular Volume 91.9 Mean Corpuscular Hemoglobin 29.5 Mean Corpuscular Hemoglobin Concent 32.1 Red Cell Distribution Width 19.7 H Platelet Count 288 Mean Platelet Volume 11.6 H Neutrophils % 80.5 H Lymphocytes % 6.7 L Monocytes % 8.0 Eosinophils % 0.3 Basophils % 0.1 Nucleated Red Blood Cells % 0.0 Neutrophils # 13.2 H Lymphocytes # 1.1 Monocytes # 1.3 H Eosinophils # 0.1 Basophils # 0.0 Nucleated Red Blood Cells # 0.0 Bedside Glucose 166 Medications Medications Current Medications Aspirin (Aspirin) 325 mg DAILY NGT Last administered on 04/30/17 08:43; Admin Dose 325 MG; Start 04/12/17 at 09:00; Status Future Hold Metoprolol Tartrate (Lopressor) 5 mg Q4H PRN IV HR>110 Hold SBP<110 Last administered on 04/20/17 17:36; Admin Dose 5 MG; Start 04/11/17 at 13:30 Miscellaneous Information 1 ea NOTE XX ; Start 04/11/17 at 16:30 Glucose (Glutose) 15 gm Q15M PRN PO DECREASED GLUCOSE Last administered on 05/07 03:27; Admin Dose 15 GM; Start 04/11/17 at 16:30 Glucose (Glutose) 22.5 gm Q15M PRN PO DECREASED GLUCOSE; Start 04/11/17 at 16: 30 Dextrose (D50w Syringe) 25 ml Q15M PRN IV DECREASED GLUCOSE Last administered on 04/12/17 23:56; Admin Dose 25 ML; Start 04/11/17 at 16:30 Dextrose (D50w Syringe) 50 ml Q15M PRN IV DECREASED GLUCOSE; Start 04/11/17 at 16:30 Glucagon (Glucagen) 1 mg Q15M PRN IM DECREASED GLUCOSE; Start 04/11/17 at 16:30 Glucose (Glutose) 15 gm Q15M PRN BUCCAL DECREASED GLUCOSE; Start 04/11/17 at 16 :30 Metoclopramide HCl (Reglan) 10 mg Q6 IV Last administered on 05/14/17 12:57; Admin Dose 10 MG; Start 04/12/17 at 18:00 Insulin Aspart (Novolog Insulin Pen) NOVOLOG *MILD* ALGORI... Q6H SC Last administered on 05/14/17 13:02; Admin Dose 1 UNIT; Start 04/15/17 at 00:00 IV Flush (NS 10 ml) 10 ml PRN PRN IV FLUSH LINE; Start 04/15/17 at 13:00 Amiodarone HCl (Cordarone) 200 mg BID GTB Last administered on 05/14/17 10:22; Admin Dose 200 MG; Start 04/16/17 at 13:00 Heparin Sodium (Porcine) (Heparin (5000 Units/0.5 ml)) 5,000 unit BID SC Last administered on 04/30/17 21:03; Admin Dose 5,000 UNIT; Start 04/18/17 at 16:22; Status Future Hold Citalopram Hydrobromide (Celexa) 20 mg DAILY NGT Last administered on 05/14/17 10:30; Admin Dose 20 MG; Start 04/19/17 at 09:00 Hydralazine HCl (Apresoline) 20 mg Q6H PRN IV sbp ABOVE 160 Last administered on 05/07/17 12:23; Admin Dose 20 MG; Start 04/18/17 at 18:30 Chlorhexidine Gluconate (Peridex) 15 ml BID MT Last administered on 05/14/17 10 :28; Admin Dose 15 ML; Start 04/22/17 at 21:00 Vitamin A/Vitamin D (Vitamin A & D Oint) 1 applic TID TOP Last administered on 05/14/17 13:02; Admin Dose 1 APPLIC; Start 04/22/17 at 21:00 Vitamin A/Vitamin D (Vitamin A & D Oint) 1 applic TID PRN TOP DRYNESS Last administered on 04/22/17 15:29; Admin Dose 1 APPLIC; Start 04/22/17 at 15:00 Acetaminophen/ Hydrocodone Bitart ([place] (5/325)) 1 tab Q6H GTB Last administered on 05/14/17 10:30; Admin Dose 1 TAB; Start 04/22/17 at 21:30 Spironolactone (Aldactone) 25 mg DAILY NGT Last administered on 05/14/17 10:29 ; Admin Dose 25 MG; Start 04/25/17 at 19:00; Status Future hold Diltiazem HCl (Cardizem Iv) 5 mg Q1H PRN IV HEART RATE GREATER THAN 120 Last administered on 04/29/17 06:17; Admin Dose 5 MG; Start 04/29/17 at 05:00 Metronidazole 500 mg 500 mg Q8 GTB Last administered on 05/14/17 15:01; Admin Dose 500 MG; Start 04/30/17 at 22:00 Sodium Chloride 1,000 ml @ 0 mls/hr Q0M IV Last administered on 05/01/17 03: 00; Admin Dose 1,000 MLS/HR; Start 05/01/17 at 03:00 Sodium Chloride (NS) 1,000 ml @ 0 mls/hr Q0M IV Last administered on 04:00; Admin Dose 1,000 MLS/HR; Start 05/01/17 at 03:30 Pantoprazole 40 mg 40 mg BID@06,18 IV Last administered on 05/14/17 06:25; Admin Dose 40 MG; Start 05/02/17 at 15:00 Diltiazem HCl (Cardizem-D5W 125 Mg/125 ml Drip) 125 ml @ 5 mls/hr TITRATE IV Last administered on 05/02/17 19:11; Admin Dose 5 MLS/HR; Start 7/21/17 at 19: 00 Valacyclovir HCl (Valtrex) 1,000 mg DAILY GTB Last administered on 05/14/17 10: 23; Admin Dose 1,000 MG; Start 05/06/17 at 09:00 Metoprolol Tartrate (Lopressor) 25 mg QID GTB Last administered on 05/14/17 12: 59; Admin Dose 25 MG; Start 05/07/17 at 09:00 Furosemide 40 mg 40 mg Q12 IV Last administered on 05/14/17 10:28; Admin Dose 40 MG; Start 05/08/17 at 09:00 Cefepime HCl (Maxipime 1gm/50 ml (Pmx)) 50 ml @ 100 mls/hr Q24H IVPB Last administered on 05/13/17 17:25; Admin Dose 100 MLS/HR; Start 05/08/17 at 18:00 Hydrocortisone (Solu-Cortef) 50 mg BID IV Last administered on 05/14/17 10:28; Admin Dose 50 MG; Start 05/10/17 at 21:00 Vitamin B Complex/ Vitamin C (Berocca) 1 cap DAILY PO Last administered on 10:30; Admin Dose 1 CAP; Start 05/13/17 at 09:00 Nystatin (Nystatin Susp) 5 ml QID PO Last administered on 05/14/17 12:58; Admin Dose 5 ML; Start 05/12/17 at 17:00 EMILIANO HICKS May 14, 2017 15:11
[2017-05-14] MEDS: CEFEPIME 1GM/50 ML (PMX) 50 ML IVPB SCH (18:00)
[2017-05-14] MEDS: hydrALAzine 20 MG INJ IV PRN (19:01)
--- NOTE | 2017-05-14 23:49 | PN ---
Date/Time of Note Date/Time of Note DATE: 05/14/17 TIME: 23:49 Assessment/Plan Lines/Catheters IV Catheter Type (from [facility]): Amrit Latif in Place (from [facility]): Yes Assessment/Plan Chief Complaint/Hosp Course 1. Cholelithiasis: Tolerating tube feeds; no abdominal pain/discomfort; +bowel function -No surgical intervention required at this time 2. Pneumonia: Recurrent; no fevers; reintubated; +sputum cultures; appears comfortable -pulmonary toilet -abx per ID 3. Vent dependent respiratory failure: 2/2 aspiration PNA+ CHF;reintubated and extubated, coded 04/21 and 05/01; currently reintubated -as above 4. Septic Shock resolved 5. Uncontrolled Afib: s/p amiodarone drip, on oral amiodarone; episodes of Afib Now SR -medical optimization 6. Elevated troponin:NSTEMI; septic shock/demand ischemia -trend 7. Leukocytosis with lactic acidosis: 2/2 pneumonia vs. steroids vs.fungemia vs other (urine, repeat blood cultures negative) -abx, antifungals -judicious fluid management -supportive measures 8. KEYONNA: likely 2/2 septic shock; s/p code; HD -judicious fluid management -avoid nephrotoxic agents 9. CHF: BNP elevated -judicious fluid management -medical optimization 10. Adrenal Insufficiency -solucortef 11. Hypomagnesemia: normalized 12. Hypothyroidism; tsh elevated -on synthroid 13. Macrocytic anemia: chronic vs. dilutional vs. acute bleed vs. b12/folate deficiency; 1 unit transfused today -monitor -Transfuse as needed 14. Transaminitis: likely 2/2 septic shock vs. cholecystitis;normalized -trend, monitor 15. Diarrhea: 2/2 abx vs. enteritis: resolved; tolerating tf 16. Thrombocytosis: 2/2 inflammatory vs. drug induced vs. other -monitor -bleeding precautions -supportive 17. Encephalopathy: 2/2 toxic metabolic vs. anoxic injury; CT: No acute intracranial hemorrhage or mass effect. Mild chronic microvascular disease and intracranial atherosclerosis; EEG shows no seizure activity: fully awake -supportive 18. Bilateral upper extremity edema: likely 2/2 decreased movement vs. thrombosis; initial doppler negative, repeat doppler left arm (+) Thrombus -elevate extremities -supportive 19. Hypoalbuminemia: 2/2 malnutrition +/- inflammation; decreased; tolerating tf ; -nutrition optimization -as above 20 Hypernatremia: normalized -judicious fluid management 21. Hypocalcemia with hypoalbuminemia -optimize nutrition 22. Fungemia -antifungals 23. Hyperkalemia: normalized -optimize lytes 24. Oral lesions: improving Patient seen and examined in collaboration with Dr. Justus Antonio Problems: Subjective 24 Hr Interval Summary Feels well. Fully awake and responsive. Receiving transfusion PRBC's. No abdominal pain/discomfort. +bowel function. Comfortable on vent. No c/o pain. No fevers, chills. Exam/Review of Systems Vital Signs Vitals Vital Signs Date Time Temp Pulse Resp B/P Pulse Ox O2 Delivery O2 Flow Rate FiO2 05/14/17 21:35 79 05/14/17 20:00 98.4 20 114/56 98 05/14/17 19:35 30 Intake and Output 05/14/17 05/14/17 05/15/17 15:00 23:00 07:00 Intake Total 800 ml Output Total 900 ml Balance -100 ml Exam Free Text/Dictation Constitutional: fully awake and responsive Head: atraumatic, normocephalic Eyes: PERRL, nl lids, nl sclera ENMT: No mucosa pink and moist (pink and moist with healing perioral lesions) Neck: non-tender, supple, tracheostomy Respiratory: diminished, comfortable on vent Cardiovascular: nl pulses, regular rate and rhythm, Gastrointestinal: non distended, GT tubes site no erythema, no drainage, non tenderness, bowel sounds x 4 quads, soft Genitourinary - Female: nl external genitalia Musculoskeletal: nl extremities to inspection Extremities: normal pulses, bilateral upper/lower extremity edema 2+ Neurological: responsive Skin: nl turgor, No rash or lesions Lymph: nl lymph nodes Results Result Diagram: 05/14/17 1219 05/14/17 0730 ADDISON FREGOSO NP May 14, 2017 23:49
[2017-05-15] VITALS (23 sets, daily range): BP systolic 107–146; BP diastolic 56–81; PULSE 65–81; RESP 16–20
[2017-05-15] MEDS: LEVALBUTEROL (HFA) 15 GM INHALER INH SCH ×4 (01:14→19:33)
[2017-05-15] MEDS: HYDROCODONE/APAP (5/325) TAB GTB SCH ×4 (03:41→22:11)
[2017-05-15] MEDS: PANTOPRAZOLE 40 MG INJ IV SCH ×2 (05:50→18:26)
[2017-05-15] MEDS: metroNIDAZOLE 500 MG TAB GTB SCH ×3 (05:50→22:11)
[2017-05-15] MEDS: METOCLOPRAMIDE 10 MG INJ IV SCH ×3 (05:53→18:26)
[2017-05-15] MEDS: INSULIN ASPART [NOVOLOG] 3 ML PEN SC SCH ×3 (05:55→18:38)
[2017-05-15 07:41] LABS: ABNORMAL IP MESSAGE 1; BASOPHILS % 0.1 % (0.0-2.0); HEMATOCRIT 29.5 % (37.0-47.0); HEMOGLOBIN 9.8 g/dl (12.0-16.0); LYMPHOCYTES # 0.9 10^3/ul (0.8-2.9); LYMPHOCYTES % 6.5 % (15.0-51.0); MEAN CORPUSCULAR HEMOGLOBIN 29.5 pg (29.0-33.0); MEAN CORPUSCULAR HGB CONC 33.2 g/dl (32.0-37.0); MEAN CORPUSCULAR VOLUME 88.9 fl (82.0-101.0); MEAN PLATELET VOLUME 12.1 fl (7.4-10.4); MONOCYTE # 0.9 10^3/ul (0.3-0.9); MONOCYTES % 6.7 % (0.0-11.0); NEUTROPHIL # 11.4 10^3/ul (1.6-7.5); NEUTROPHILS % 80.9 % (39.0-77.0); NUCLEATED RED BLOOD CELLS% 0.2 /100WBC (0.0-0.0); PLATELET COUNT 270 10^3/UL (140-415); RED BLOOD COUNT 3.32 10^6/ul (4.20-5.40); RED CELL DISTRIBUTION WIDTH 17.6 % (11.5-14.5); WHITE BLOOD COUNT 14.1 10^3/ul (4.8-10.8)
[2017-05-15 07:44] LABS: POSITIVE DIFF @See below
--- NOTE | 2017-05-15 08:02 | PN ---
Date/Time of Note Date/Time of Note DATE: 05/15/17 TIME: 08:00 Assessment/Plan VTE Prophylaxis VTE Prophylaxis Intervention: other Lines/Catheters IV Catheter Type (from Nrs): PICC Line Central line still needed: Yes Urinary Cath still in place: Yes Reason Cath still needed: other (indicate) Assessment/Plan Chief Complaint/Hosp Course 1. acute on chronic hypoxemic respiratory failure: 2. NSTEMI: due to demand ischemia. 3. CHF/ fluid overload: due to diastolic heart failure 4. moderate 5. Arrhythmia and P afib, frequent PVC: currently in NSR. 6. ANEMIA: s/p multiple transfusion 7. pneumonia, severe leukocytosis now. 8. sepsis and shock: off of pressors now 9. Anasarca 10. s/p cardiopulm arrest due to resp failure 11. renal failure on HD now. 12. coagulopathy Rec: off of ASA due to active bleeding and severe anemia and coagulopathy. resp care as per PULM Team. correct lytes prn. keep K > 4, Mg > 2 CONT betablocker as tolerated. . cont thyroid supplement . cont tele monitoring HD/ ultrafiltration as per renal. transfuse prn THANK YOU. Problems: Subjective 24 Hr Interval Summary Free Text/Dictation CARDIOLOGY FOLLOW UP NOTE: D/W staff , d/w . rhythm was reviewed. pt remains in NSR. no afib overnight Pt has been in tele now. no chest pain or pressure or palpitations. pt still s/p trach on vent pt with anemia and s/p transfusion again on 05/14/17 Objective: General: s/p trach on vent HEENT: NC/AT. . oropharynx with multiple lesions. . NECK: NO JVD. no stridor. s/p trach on vent CV: RRR. systolic ejection murmur; no gallop or rubs. PULM: + diffuse rhonchi. no wheezes. GI: SOFT, NT, ND, no rebound or guarding s/p PEG Extremity: 1-2+ B/L LE edema. no clubbing. neuro: awake and alert and responds appropriately Psych: calm rectal: deferred Derm: multiple echymosis : S/P mims catheter in place. Exam/Review of Systems Vital Signs Vitals Vital Signs Date Time Temp Pulse Resp B/P Pulse Ox O2 Delivery O2 Flow Rate FiO2 05/15/17 07:09 97.9 80 16 107/56 98 05/15/17 05:59 30 Intake and Output 05/14/17 05/14/17 05/15/17 15:00 23:00 07:00 Intake Total 800 ml 700 ml Output Total 900 ml 900 ml Balance -100 ml -200 ml Results Result Diagram: 05/15/17 0639 05/14/17 0730 Results 24 hrs Laboratory Tests Test 05/14/17 12:19 05/14/17 12:20 05/14/17 18:13 05/14/17 23:48 White Blood Count 16.3 H Red Blood Count 2.34 L Hemoglobin 6.9 *L Hematocrit 21.5 L Mean Corpuscular Volume 91.9 Mean Corpuscular Hemoglobin 29.5 Mean Corpuscular Hemoglobin Concent 32.1 Red Cell Distribution Width 19.7 H Platelet Count 288 Mean Platelet Volume 11.6 H Neutrophils % 80.5 H Lymphocytes % 6.7 L Monocytes % 8.0 Eosinophils % 0.3 Basophils % 0.1 Nucleated Red Blood Cells % 0.0 Neutrophils # 13.2 H Lymphocytes # 1.1 Monocytes # 1.3 H Eosinophils # 0.1 Basophils # 0.0 Nucleated Red Blood Cells # 0.0 Bedside Glucose 166 173 159 Test 05/15/17 05:52 05/15/17 06:39 Bedside Glucose 169 White Blood Count 14.1 H Red Blood Count 3.32 #L Hemoglobin 9.8 #L Hematocrit 29.5 #L Mean Corpuscular Volume 88.9 Mean Corpuscular Hemoglobin 29.5 Mean Corpuscular Hemoglobin Concent 33.2 Red Cell Distribution Width 17.6 H Platelet Count 270 Mean Platelet Volume 12.1 H Neutrophils % 80.9 H Lymphocytes % 6.5 L Monocytes % 6.7 Eosinophils % 0.0 Basophils % 0.1 Nucleated Red Blood Cells % 0.2 H Neutrophils # 11.4 H Lymphocytes # 0.9 Monocytes # 0.9 Eosinophils # 0.0 Basophils # 0.0 Nucleated Red Blood Cells # 0.0 Medications Medications Current Medications Aspirin (Aspirin) 325 mg DAILY NGT Last administered on 04/30/17t 08:43; Admin Dose 325 MG; Start 04/12/17 at 09:00; Status Future Hold Metoprolol Tartrate (Lopressor) 5 mg Q4H PRN IV HR>110 Hold SBP<110 Last administered on 04/20/17 17:36; Admin Dose 5 MG; Start 04/11/17 at 13:30 Miscellaneous Information 1 ea NOTE XX ; Start 04/11/17 at 16:30 Glucose (Glutose) 15 gm Q15M PRN PO DECREASED GLUCOSE Last administered on 05/07 03:27; Admin Dose 15 GM; Start 04/11/17 at 16:30 Glucose (Glutose) 22.5 gm Q15M PRN PO DECREASED GLUCOSE; Start 04/11/17 at 16: 30 Dextrose (D50w Syringe) 25 ml Q15M PRN IV DECREASED GLUCOSE Last administered on 04/12/17 23:56; Admin Dose 25 ML; Start 04/11/17 at 16:30 Dextrose (D50w Syringe) 50 ml Q15M PRN IV DECREASED GLUCOSE; Start 04/11/17 at 16:30 Glucagon (Glucagen) 1 mg Q15M PRN IM DECREASED GLUCOSE; Start 04/11/17 at 16:30 Glucose (Glutose) 15 gm Q15M PRN BUCCAL DECREASED GLUCOSE; Start 04/11/17 at 16 :30 Metoclopramide HCl (Reglan) 10 mg Q6 IV Last administered on 05/15/17 05:53; Admin Dose 10 MG; Start 04/12/17 at 18:00 Insulin Aspart (Novolog Insulin Pen) NOVOLOG *MILD* ALGORI... Q6H SC Last administered on 05/15/17 05:55; Admin Dose 2 UNIT; Start 04/15/17 at 00:00 IV Flush (NS 10 ml) 10 ml PRN PRN IV FLUSH LINE; Start 04/15/17 at 13:00 Amiodarone HCl (Cordarone) 200 mg BID GTB Last administered on 05/14/17 20:42; Admin Dose 200 MG; Start 04/16/17 at 13:00 Heparin Sodium (Porcine) (Heparin (5000 Units/0.5 ml)) 5,000 unit BID SC Last administered on 04/30/17 21:03; Admin Dose 5,000 UNIT; Start 04/18/17 at 16:22; Status Future Hold Citalopram Hydrobromide (Celexa) 20 mg DAILY NGT Last administered on 05/14/17 10:30; Admin Dose 20 MG; Start 04/19/17 at 09:00 Hydralazine HCl (Apresoline) 20 mg Q6H PRN IV sbp ABOVE 160 Last administered on 05/14/17 19:01; Admin Dose 20 MG; Start 04/18/17 at 18:30 Chlorhexidine Gluconate (Peridex) 15 ml BID MT Last administered on 05/14/17 20 :40; Admin Dose 15 ML; Start 04/22/17 at 21:00 Vitamin A/Vitamin D (Vitamin A & D Oint) 1 applic TID TOP Last administered on 05/14/17 20:41; Admin Dose 1 APPLIC; Start 04/22/17 at 21:00 Vitamin A/Vitamin D (Vitamin A & D Oint) 1 applic TID PRN TOP DRYNESS Last administered on 04/22/17 15:29; Admin Dose 1 APPLIC; Start 04/22/17 at 15:00 Acetaminophen/ Hydrocodone Bitart ([place] (5/325)) 1 tab Q6H GTB Last administered on 05/15/17 03:41; Admin Dose 1 TAB; Start 04/22/17 at 21:30 Spironolactone (Aldactone) 25 mg DAILY NGT Last administered on 05/14/17 10:29 ; Admin Dose 25 MG; Start 04/25/17 at 19:00; Status Future hold Diltiazem HCl (Cardizem Iv) 5 mg Q1H PRN IV HEART RATE GREATER THAN 120 Last administered on 04/29/17 06:17; Admin Dose 5 MG; Start 04/29/17 at 05:00 Metronidazole 500 mg 500 mg Q8 GTB Last administered on 05/15/17 05:50; Admin Dose 500 MG; Start 04/30/17 at 22:00 Sodium Chloride 1,000 ml @ 0 mls/hr Q0M IV Last administered on 05/01/17 03: 00; Admin Dose 1,000 MLS/HR; Start 05/01/17 at 03:00 Sodium Chloride (NS) 1,000 ml @ 0 mls/hr Q0M IV Last administered on 04:00; Admin Dose 1,000 MLS/HR; Start 05/01/17 at 03:30 Pantoprazole 40 mg 40 mg BID@18 IV Last administered on 05/15/17 05:50; Admin Dose 40 MG; Start 05/02/17 at 15:00 Diltiazem HCl (Cardizem-D5W 125 Mg/125 ml Drip) 125 ml @ 5 mls/hr TITRATE IV Last administered on 05/02/17 19:11; Admin Dose 5 MLS/HR; Start 05/02/17 at 19: 00 Valacyclovir HCl (Valtrex) 1,000 mg DAILY GTB Last administered on 05/14/17 10: 23; Admin Dose 1,000 MG; Start 05/06/17 at 09:00 Metoprolol Tartrate (Lopressor) 25 mg QID GTB Last administered on 05/14/17 20: 43; Admin Dose 25 MG; Start 05/07/17 at 09:00 Furosemide 40 mg 40 mg Q12 IV Last administered on 05/14/17 20:42; Admin Dose 40 MG; Start 05/08/17 at 09:00 Cefepime HCl (Maxipime 1gm/50 ml (Pmx)) 50 ml @ 100 mls/hr Q24H IVPB Last administered on 05/13/17 17:25; Admin Dose 100 MLS/HR; Start 05/08/17 at 18:00 Hydrocortisone (Solu-Cortef) 50 mg BID IV Last administered on 05/14/17 20:40; Admin Dose 50 MG; Start 05/10/17 at 21:00 Vitamin B Complex/ Vitamin C (Berocca) 1 cap DAILY PO Last administered on 10:30; Admin Dose 1 CAP; Start 05/13/17 at 09:00 Nystatin (Nystatin Susp) 5 ml QID PO Last administered on 05/14/17 20:41; Admin Dose 5 ML; Start 05/12/17 at 17:00 FRANCISCO BLACKWOOD MD May 15, 2017 08:01
[2017-05-15 08:08] LABS: CALCIUM 8.2 mg/dl (8.4-10.2); CREATININE 1.77 mg/dl (0.44-1.00); PHOSPHORUS 2.9 mg/dl (2.5-4.9); POTASSIUM 3.3 mmol/L (3.5-5.1)
[2017-05-15] MEDS: LEVOTHYROXINE 75 MCG TAB GTB SCH (08:22)
[2017-05-15] MEDS: AMIODARONE 200 MG TAB GTB SCH ×2 (08:24→22:11)
[2017-05-15] MEDS: CITALOPRAM 20 MG TAB NGT SCH (08:25)
[2017-05-15] MEDS: SPIRONOLACTONE 25 MG TAB NGT SCH (08:25)
[2017-05-15] MEDS: VALACYCLOVIR 500 MG TAB GTB SCH (08:25)
[2017-05-15] MEDS: VITAMIN A & D 5 GM OINT PACKET TOP SCH ×3 (08:26→22:10)
[2017-05-15] MEDS: FUROSEMIDE 40 MG INJ IV SCH ×2 (08:26→22:10)
[2017-05-15] MEDS: CHLORHEXIDINE GLUCONATE 15 ML UD CUP MT SCH ×2 (08:26→22:10)
[2017-05-15] MEDS: NYSTATIN SUSP 5 ML CUP PO SCH ×4 (08:26→22:10)
[2017-05-15] MEDS: VITAMIN B COMPLEX/VIT C CAP PO SCH (08:26)
[2017-05-15] MEDS: METOPROLOL 25 MG TAB GTB SCH ×4 (08:27→22:11)
[2017-05-15] MEDS: HYDROCORTISONE 100 MG INJ IV SCH ×2 (08:27→22:10)
[2017-05-15] MEDS ORDERED: MAGNESIUM SULFATE 1 GM/D5W 100 ML IVPB ONE (08:30)
[2017-05-15] MEDS ORDERED: POTASSIUM CHLORIDE 20 MEQ POWDER FOR ORAL SOLN GTB ONE (09:00)
[2017-05-15] MEDS: COLISTIMETHATE (25 MG/ML INHAL SYG) NEB SCH ×2 (09:18→19:33)
--- NOTE | 2017-05-15 09:56 | PN ---
Date/Time of Note Date/Time of Note DATE: 05/15/17 TIME: 09:45 Assessment/Plan Lines/Catheters IV Catheter Type (from [facility]): PICC Line Latif in Place (from [facility]): Yes Assessment/Plan Chief Complaint/Hosp Course 1. Cholelithiasis: Tolerating tube feeds; no abdominal pain/discomfort; lft's nl ; +bowel function -No surgical intervention required at this time 2. Pneumonia: Recurrent; no fevers; reintubated; +sputum cultures; appears comfortable -pulmonary toilet -abx per ID 3. Vent dependent respiratory failure: 2/2 aspiration PNA+ CHF;reintubated and extubated, coded 04/21 and 05/01; currently reintubated; comfortable on vent -as above 4. Septic Shock resolved 5. Uncontrolled Afib: s/p amiodarone drip, on oral amiodarone; episodes of Afib Now SR -medical optimization 6. Leukocytosis with lactic acidosis: 2/2 pneumonia +/- steroids vs.fungemia vs other (urine, repeat blood cultures negative) -abx, antifungals -judicious fluid management -supportive measures 7. Macrocytic anemia: chronic vs. dilutional vs. acute bleed vs. b12/folate deficiency; 1 unit transfused today -monitor -Transfuse as needed 8. KEYONNA: likely 2/2 septic shock; s/p code; HD; with + urine output -judicious fluid management -avoid nephrotoxic agents 9. CHF: BNP elevated -judicious fluid management -medical optimization 10. Adrenal Insufficiency -solucortef 11. Hypomagnesemia: normalized 12. Hypothyroidism; tsh elevated -on synthroid 13. Encephalopathy: 2/2 toxic metabolic vs. anoxic injury; CT: No acute intracranial hemorrhage or mass effect. Mild chronic microvascular disease and intracranial atherosclerosis; EEG shows no seizure activity: fully awake -supportive 14. Bilateral upper extremity edema: likely 2/2 decreased movement vs. thrombosis; initial doppler negative, repeat doppler left arm (+) Thrombus -elevate extremities -supportive 15. Hypoalbuminemia: 2/2 malnutrition +/- inflammation; decreased; tolerating tf ; -nutrition optimization -as above 16. Hypocalcemia with hypoalbuminemia -optimize nutrition 17. Fungemia -antifungals 18. Hypokalemia: -replete and monitor 19. Oral lesions: improving Patient seen and examined in collaboration with Dr. Justus Antonio Problems: Subjective 24 Hr Interval Summary Feeling well. comfortable on vent. Awake and responsive. No fevers, chills, n/v/ d, cp, palpitations, sob, cough. Tolerating tf. +bowel function without hematochezia/melena. Exam/Review of Systems Vital Signs Vitals Vital Signs Date Time Temp Pulse Resp B/P Pulse Ox O2 Delivery O2 Flow Rate FiO2 05/15/17 08:30 81 05/15/17 08:14 16 99 30 05/15/17 07:09 97.9 107/56 Intake and Output 05/14/17 05/14/17 05/15/17 15:00 23:00 07:00 Intake Total 800 ml 700 ml Output Total 900 ml 900 ml Balance -100 ml -200 ml Exam Free Text/Dictation Constitutional: fully awake and responsive Head: atraumatic, normocephalic Eyes: PERRL, nl lids, nl sclera ENMT: No mucosa pink and moist (pink and moist with healing perioral lesions) Neck: non-tender, supple, tracheostomy Respiratory: diminished, comfortable on vent Cardiovascular: nl pulses, regular rate and rhythm, Gastrointestinal: non distended, GT tubes site no erythema, no drainage, non tenderness, bowel sounds x 4 quads, soft; tf ongoing Genitourinary - Female: nl external genitalia Musculoskeletal: nl extremities to inspection Extremities: normal pulses, bilateral upper/lower extremity edema 2+; improving Neurological: responsive Skin: nl turgor, No rash or lesions Lymph: nl lymph nodes Results Result Diagram: 05/15/17 0639 05/15/17 0639 ADDISON FREGOSO NP May 15, 2017 09:55
--- NOTE | 2017-05-15 10:40 | CONS ---
Date/Time of Note Date/Time of Note DATE: 05/15/17 TIME: 10:35 Assessment/Plan Assessment/Plan Chief Complaint/Hosp Course Assessment/Plan Chief Complaint/Hosp Course ID PROGRESS NOTE CURRENT ABX=> Flagyl, Valtrex, + Cefepime #5 + Colistin INH #4 Cancidas -> DC 05/10 Merrem -> DC'd 05/08 Merrem #14 total -> DC'd 04/26=> Restarted 24H INTERVAL SUMMARY/HOSPITAL COURSE * Alert and responsive. Facial and Lip edema has improved. Lip lesions still healing. No fevers. * 05/11/17 CXR: Prominent interstitial markings are seen. No dense consolidation or pleural effusion is seen. * 05/06 SPUTUM RESPIRATORY CULTURE Final Organism 1 PSEUDOMONAS AERUGINOSA QUANTITY 2+ P.AERUG M.I.C. RX --------- --- AMIKACIN <=2 S AZTREONAM R CEFEPIME 8 S CEFTAZIDIME 8 S CIPROFLOXACIN I GENTAMICIN <=1 S IMIPENEM >=16 R LEVOFLOXACIN >=8 R TOBRAMYCIN <=1 S PIPERACILLIN/TAZOBACTAM 32 S PHYSICAL EXAMINATION: GENERAL: 66 yo F, stable on the Vent HEENT: Atraumatic, (+)Lip crusting lesions healing NECK: (+)Trach in place secure to VENT CHEST: Rise symmetrical w/coarse BS, scattered rales/rhonchi ABDOMEN: Soft, peg EXTREMITIES: Warm, moves extremities ID ASSESSMENT: 66 yo F w/PMHx tongue cancer, chronic trach re-admit [facility] from [facility] with: 1. s/p Acute severe sepsis/shock on admission w/(+)fever, tachycardia, lactic acidosis, leukocytosis, (+)troponin leak = RESOLVING * Leukocytosis persisting -> IV Steroids onboard * Fungemia => repeat BCx negative 2. Anasarca w/increased facial edema/bilateral lip edema w/resolving HSV lip lesions resolving * -- facial edema is worse due to patient preference while sitting up to lean her head forward w/neck flexion over her trach/trach-tie -- this position compromised jugular venous return. 3. Acute respiratory failure = recurrent issue s/p intubation x3rd episode w/ extubation, now with Trach secure to Vent 3. HCAP=> Recurrent Aspiration PNA post emesis // Hx of GNR tracheobronchitis * Sputum 04/21/17 (+)Yeast * Sputum 05/06/17 (+)PSAR 4. Acute CHF w/elevated BNP 8000 in setting tachycardia, sepsis, pulmonary edema on CXR 5. s/p Nausea w/emesis on admission -> RESOLVED * Query: DM Autonomic Gastroparesis * GERD 6. Cholelithiasis w/dilated CBD->HIDA scan (+cholecystitis 04/12/17=> s/p Mansi Drain 04/17/17, no surgery per GI 7. Acute renal failure = started on HD 8. Dysphagia sp PEG placement 9. Paroxysmal Afib 10. NSTEMI in setting sepsis, tachycardia, acute hypoxic respiratory failure, acute CHF exacerbation 11. Elevated glucose - iatrogenic diabetes while on IV steroids 12. Leukocytosis = partial steroids demargination 13. Lip lesions => consistent w/herpes simplex virus outbreak -> On Valtrex HEALING 14. s/p GIB associates with Acute on chronic anemia secondary to AVM ==> stopped , status post EGD on May 02 with injection of epinephrine 15. Recent (+)C.Diff on 03/07/16 (treated) w/(-)C.Diff 03/20/17 (-) MRSA Nares screen (04/03/17) INVASIVES: Trach, PEG, FC, R-FEM Amrit (05/04/17) ABX ALLERGY: Iodine CURRENT ABX: => Flagyl, Valtrex, + Cefepime #5 + Colistin INH #4 Cancidas-> DC 05/10 Merrem -> DC'd 05/08 Merrem #14 total -> DC'd 04/26=> Restarted ID PLAN: 1. Continue Valtrex until lip lesions healed, continue empiric Flagyl while on ABX for PSAR PNA * Continue current ABX --PSAR is sensitive to Cefepime + Colistin INH 2. Hx of C.Diff-> Keep on Flagyl while PSAR Trach decolonization ABX completed 3. Added Nystain PO oral swish spit + Vit B/C complex -- lip/mouth lesions healing 4. Monitor Labs. Problems: Consultation Date/Type/Reason Admit Date/Time Apr 11, 2017 at 11:28 Initial Consult Date 05/01/17 Type of Consultation: id Referring Provider: NINA MACIEL DO Exam/Review of Systems Vital Signs Vitals Vital Signs Date Time Temp Pulse Resp B/P Pulse Ox O2 Delivery O2 Flow Rate FiO2 05/15/17 09:10 83 16 100 30 05/15/17 07:09 97.9 107/56 Intake and Output 05/14/17 05/14/17 05/15/17 15:00 23:00 07:00 Intake Total 800 ml 700 ml Output Total 900 ml 900 ml Balance -100 ml -200 ml Results Result Diagram: 05/15/17 0639 05/15/17 0639 Results 24 hrs Laboratory Tests Test 05/14/17 12:19 05/14/17 12:20 05/14/17 18:13 05/14/17 23:48 White Blood Count 16.3 H Red Blood Count 2.34 L Hemoglobin 6.9 *L Hematocrit 21.5 L Mean Corpuscular Volume 91.9 Mean Corpuscular Hemoglobin 29.5 Mean Corpuscular Hemoglobin Concent 32.1 Red Cell Distribution Width 19.7 H Platelet Count 288 Mean Platelet Volume 11.6 H Neutrophils % 80.5 H Lymphocytes % 6.7 L Monocytes % 8.0 Eosinophils % 0.3 Basophils % 0.1 Nucleated Red Blood Cells % 0.0 Neutrophils # 13.2 H Lymphocytes # 1.1 Monocytes # 1.3 H Eosinophils # 0.1 Basophils # 0.0 Nucleated Red Blood Cells # 0.0 Bedside Glucose 166 173 159 Test 05/15/17 05:52 05/15/17 06:39 Bedside Glucose 169 White Blood Count 14.1 H Red Blood Count 3.32 #L Hemoglobin 9.8 #L Hematocrit 29.5 #L Mean Corpuscular Volume 88.9 Mean Corpuscular Hemoglobin 29.5 Mean Corpuscular Hemoglobin Concent 33.2 Red Cell Distribution Width 17.6 H Platelet Count 270 Mean Platelet Volume 12.1 H Neutrophils % 80.9 H Lymphocytes % 6.5 L Monocytes % 6.7 Eosinophils % 0.0 Basophils % 0.1 Nucleated Red Blood Cells % 0.2 H Neutrophils # 11.4 H Lymphocytes # 0.9 Monocytes # 0.9 Eosinophils # 0.0 Basophils # 0.0 Nucleated Red Blood Cells # 0.0 Sodium Level 136 Potassium Level 3.3 L Chloride Level 94 L Carbon Dioxide Level 30 Anion Gap 15 Blood Urea Nitrogen 88 H Creatinine 1.77 H Glucose Level 162 Calcium Level 8.2 L Phosphorus Level 2.9 Magnesium Level 2.0 Medications Medications Current Medications Aspirin (Aspirin) 325 mg DAILY NGT Last administered on 04/30/17 08:43; Admin Dose 325 MG; Start 04/12/17 at 09:00; Status Future Hold Metoprolol Tartrate (Lopressor) 5 mg Q4H PRN IV HR>110 Hold SBP<110 Last administered on 04/20/17 17:36; Admin Dose 5 MG; Start 04/11/17 at 13:30 Miscellaneous Information 1 ea NOTE XX ; Start 04/11/17 at 16:30 Glucose (Glutose) 15 gm Q15M PRN PO DECREASED GLUCOSE Last administered on 05/07 03:27; Admin Dose 15 GM; Start 04/11/17 at 16:30 Glucose (Glutose) 22.5 gm Q15M PRN PO DECREASED GLUCOSE; Start 04/11/17 at 16: 30 Dextrose (D50w Syringe) 25 ml Q15M PRN IV DECREASED GLUCOSE Last administered on 04/12/17 23:56; Admin Dose 25 ML; Start 04/11/17 at 16:30 Dextrose (D50w Syringe) 50 ml Q15M PRN IV DECREASED GLUCOSE; Start 04/11/17 at 16:30 Glucagon (Glucagen) 1 mg Q15M PRN IM DECREASED GLUCOSE; Start 04/11/17 at 16:30 Glucose (Glutose) 15 gm Q15M PRN BUCCAL DECREASED GLUCOSE; Start 04/11/17 at 16 :30 Metoclopramide HCl (Reglan) 10 mg Q6 IV Last administered on 05/15/17 05:53; Admin Dose 10 MG; Start 04/12/17 at 18:00 Insulin Aspart (Novolog Insulin Pen) NOVOLOG *MILD* ALGORI... Q6H SC Last administered on 05/15/17 05:55; Admin Dose 2 UNIT; Start 04/15/17 at 00:00 IV Flush (NS 10 ml) 10 ml PRN PRN IV FLUSH LINE; Start 04/15/17 at 13:00 Amiodarone HCl (Cordarone) 200 mg BID GTB Last administered on 05/15/17 08:24; Admin Dose 200 MG; Start 04/16/17 at 13:00 Heparin Sodium (Porcine) (Heparin (5000 Units/0.5 ml)) 5,000 unit BID SC Last administered on 04/30/17 21:03; Admin Dose 5,000 UNIT; Start 04/18/17 at 16:22; Status Future Hold Citalopram Hydrobromide (Celexa) 20 mg DAILY NGT Last administered on 05/15/17 08:25; Admin Dose 20 MG; Start 04/19/17 at 09:00 Hydralazine HCl (Apresoline) 20 mg Q6H PRN IV sbp ABOVE 160 Last administered on 05/14/17 19:01; Admin Dose 20 MG; Start 04/18/17 at 18:30 Chlorhexidine Gluconate (Peridex) 15 ml BID MT Last administered on 05/15/17 08 :26; Admin Dose 15 ML; Start 04/22/17 at 21:00 Vitamin A/Vitamin D (Vitamin A & D Oint) 1 applic TID TOP Last administered on 05/15/17 08:26; Admin Dose 1 APPLIC; Start 04/22/17 at 21:00 Vitamin A/Vitamin D (Vitamin A & D Oint) 1 applic TID PRN TOP DRYNESS Last administered on 04/22/17 15:29; Admin Dose 1 APPLIC; Start 04/22/17 at 15:00 Acetaminophen/ Hydrocodone Bitart ([place] (5/325)) 1 tab Q6H GTB Last administered on 05/15/17 03:41; Admin Dose 1 TAB; Start 04/22/17 at 21:30 Spironolactone (Aldactone) 25 mg DAILY NGT Last administered on 05/15/17 08:25 ; Admin Dose 25 MG; Start 04/25/17 at 19:00; Status Future hold Diltiazem HCl (Cardizem Iv) 5 mg Q1H PRN IV HEART RATE GREATER THAN 120 Last administered on 04/29/17 06:17; Admin Dose 5 MG; Start 04/29/17 at 05:00 Metronidazole 500 mg 500 mg Q8 GTB Last administered on 05/15/17 05:50; Admin Dose 500 MG; Start 04/30/17 at 22:00 Sodium Chloride 1,000 ml @ 0 mls/hr Q0M IV Last administered on 05/01/17 03: 00; Admin Dose 1,000 MLS/HR; Start 05/01/17 at 03:00 Sodium Chloride (NS) 1,000 ml @ 0 mls/hr Q0M IV Last administered on 04:00; Admin Dose 1,000 MLS/HR; Start 05/01/17 at 03:30 Pantoprazole 40 mg 40 mg BID@06,18 IV Last administered on 05/15/17 05:50; Admin Dose 40 MG; Start 05/02/17 at 15:00 Diltiazem HCl (Cardizem-D5W 125 Mg/125 ml Drip) 125 ml @ 5 mls/hr TITRATE IV Last administered on 05/02/17 19:11; Admin Dose 5 MLS/HR; Start 05/02/17 at 19: 00 Valacyclovir HCl (Valtrex) 1,000 mg DAILY GTB Last administered on 05/15/17 08: 25; Admin Dose 1,000 MG; Start 05/06/17 at 09:00 Metoprolol Tartrate (Lopressor) 25 mg QID GTB Last administered on 05/14/17 20: 43; Admin Dose 25 MG; Start 05/07/17 at 09:00 Furosemide 40 mg 40 mg Q12 IV Last administered on 05/15/17 08:26; Admin Dose 40 MG; Start 05/08/17 at 09:00 Cefepime HCl (Maxipime 1gm/50 ml (Pmx)) 50 ml @ 100 mls/hr Q24H IVPB Last administered on 05/13/17 17:25; Admin Dose 100 MLS/HR; Start 05/08/17 at 18:00 Hydrocortisone (Solu-Cortef) 50 mg BID IV Last administered on 05/15/17 08:27; Admin Dose 50 MG; Start 05/10/17 at 21:00 Vitamin B Complex/ Vitamin C (Berocca) 1 cap DAILY PO Last administered on 08:26; Admin Dose 1 CAP; Start 05/13/17 at 09:00 Nystatin (Nystatin Susp) 5 ml QID PO Last administered on 05/15/17 08:26; Admin Dose 5 ML; Start 05/12/17 at 17:00 DOUG GARCES NP May 15, 2017 10:40
--- NOTE | 2017-05-15 10:43 | PN ---
DATE: 05/15/2017 SUBJECTIVE DATA: The patient received 2 units of PRBC yesterday. There has been no gross evidence of GI bleed. No hemoptysis, hematemesis, or hematochezia. The patient had appropriate response. No other events noted. OBJECTIVE DATA: VITAL SIGNS: Blood pressure is 107/56, respirations 16, pulse 80, temperature 97.9. HEENT: Head is normocephalic. NECK: Supple. HEART: Regular rate. LUNGS: Diminished breath sounds at the bases. ABDOMEN: Soft, nontender to palpation. No rebound or guarding. EXTREMITIES: Negative for clubbing, cyanosis. Positive edema. DERMATOLOGIC: No rashes. MUSCULOSKELETAL: No joint effusion. NEUROLOGIC: No change in exam. The patient's medications have been reviewed. LABORATORY AND DIAGNOSTIC DATA: White count 14.1, hemoglobin 9.8, hematocrit 29.5, platelet count 270. Sodium 136, potassium 3.3, chloride 94. BUN 88, creatinine 1.77. ASSESSMENT AND PLAN: 1. Ventilator dependence for respiratory failure. Vent settings reviewed. Arterial blood gases reviewed. Continue to monitor. 2. History of thyroid cancer, tracheomalacia. The patient has been seen by Ear, Nose, and Throat. Continue to monitor. 3. Nonoliguric acute kidney injury on top of chronic kidney disease. Etiology secondary to acute tubular necrosis. The patient is currently on hemodialysis intermittently. Will hold dialysis and see if there are any signs of recovery. 4. Sepsis status post shock, secondary to aspiration pneumonia, fungemia. Continue current antibiotic regimen. 5. Volume overload. Continue current diuretic regimen. 6. Adrenal insufficiency. Continue current steroid regimen. Follow up with Endocrine. 7. Acute encephalopathy. Etiology is toxic metabolic. 8. Hypothyroidism. Continue Synthroid. 9. Anemia. Monitor hemoglobin and hematocrit levels. The patient is status post blood transfusion. Continue Epogen. 10. Mineral bone disorder. Monitor calcium and phosphorus levels. 11. History of congestive heart failure. 12. Leukocytosis, multifactorial secondary to steroids, slowly improving. Continue to monitor. 13. Left upper extremity deep vein thrombosis. Continue arm elevation, hold antiplatelet secondary to bleed. 14. Dysphagia. Continue tube feeding. 15. Arrythmia. Continue to monitor. 16. Gastrointestinal and deep venous thrombosis prophylaxis. 17. Cholelithiasis. Dictated By: Abebe Valderrama DO /[email or web address]/[email or web address] /Document#: [id number]
--- NOTE | 2017-05-15 14:37 | CONS ---
Date/Time of Note Date/Time of Note DATE: 05/15/17 TIME: 14:33 Assessment/Plan Assessment/Plan Additional Assessment/Plan Ventilator setting; AC of 16, tidal volume 500, PEEP of 5, 30% FiO2. Assessment and recommendations; 1. Patient admitted for recurrent sepsis and pneumonia with history of chronic respiratory failure requiring redo tracheostomy for the second time. 2. Renal failure, on hemodialysis. 3. Generalized anasarca with marked interval improvement. 4. Remote history of glossal cancer. 5. COPD. 6. Generalized deconditioning. 7. Anemia. Continue current treatment. Initiate weaning trial from ventilator as tolerated. Patient is a good candidate for transfer to rehab center. I did have a detailed discussion patient's at bedside and answered all his questions. Consultation Date/Type/Reason Admit Date/Time Apr 11, 2017 at 11:28 Initial Consult Date 05/01/17 Type of Consultation: Pulmonary Referring Provider: NINA MACIEL DO 24 HR Interval Summary Free Text/Dictation Patient condition is improving. There is significant reduction in anasarca. Remains awake and alert. General exam; elderly woman, on ventilator via tracheostomy, currently in no distress. Exam/Review of Systems Vital Signs Vitals Vital Signs Date Time Temp Pulse Resp B/P Pulse Ox O2 Delivery O2 Flow Rate FiO2 05/15/17 13:10 80 16 99 30 05/15/17 11:50 97.9 121/63 Intake and Output 05/14/17 05/14/17 05/15/17 15:00 23:00 07:00 Intake Total 800 ml 700 ml Output Total 900 ml 900 ml Balance -100 ml -200 ml Exam HEENT exam; supple neck, no JVD. No lymphadenopathy. Midline trachea. Tracheostomy in place. There is improvement in upper and lower lip excoriations. Chest exam; diminished but clear breath sound. S1-S2 audible, no murmurs. Abdomen exam; soft, G-tube in place. Bowel sounds audible. Extremity exam; there is marked reduction in generalized anasarca. 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 Results Result Diagram: 05/15/17 0639 05/15/17 0639 Results 24 hrs Laboratory Tests Test 05/14/17 18:13 05/14/17 23:48 05/15/17 05:52 05/15/17 06:39 Bedside Glucose 173 159 169 White Blood Count 14.1 H Red Blood Count 3.32 #L Hemoglobin 9.8 #L Hematocrit 29.5 #L Mean Corpuscular Volume 88.9 Mean Corpuscular Hemoglobin 29.5 Mean Corpuscular Hemoglobin Concent 33.2 Red Cell Distribution Width 17.6 H Platelet Count 270 Mean Platelet Volume 12.1 H Neutrophils % 80.9 H Lymphocytes % 6.5 L Monocytes % 6.7 Eosinophils % 0.0 Basophils % 0.1 Nucleated Red Blood Cells % 0.2 H Neutrophils # 11.4 H Lymphocytes # 0.9 Monocytes # 0.9 Eosinophils # 0.0 Basophils # 0.0 Nucleated Red Blood Cells # 0.0 Sodium Level 136 Potassium Level 3.3 L Chloride Level 94 L Carbon Dioxide Level 30 Anion Gap 15 Blood Urea Nitrogen 88 H Creatinine 1.77 H Glucose Level 162 Calcium Level 8.2 L Phosphorus Level 2.9 Magnesium Level 2.0 Test 05/15/17 13:31 Bedside Glucose 167 Medications Medications Current Medications Aspirin (Aspirin) 325 mg DAILY NGT Last administered on 04/30/17 08:43; Admin Dose 325 MG; Start 04/12/17 at 09:00; Status Future Hold Metoprolol Tartrate (Lopressor) 5 mg Q4H PRN IV HR>110 Hold SBP<110 Last administered on 04/20/17 17:36; Admin Dose 5 MG; Start 04/11/17 at 13:30 Miscellaneous Information 1 ea NOTE XX ; Start 04/11/17 at 16:30 Glucose (Glutose) 15 gm Q15M PRN PO DECREASED GLUCOSE Last administered on 05/07 03:27; Admin Dose 15 GM; Start 04/11/17 at 16:30 Glucose (Glutose) 22.5 gm Q15M PRN PO DECREASED GLUCOSE; Start 04/11/17 at 16: 30 Dextrose (D50w Syringe) 25 ml Q15M PRN IV DECREASED GLUCOSE Last administered on 04/12/17 23:56; Admin Dose 25 ML; Start 04/11/17 at 16:30 Dextrose (D50w Syringe) 50 ml Q15M PRN IV DECREASED GLUCOSE; Start 04/11/17 at 16:30 Glucagon (Glucagen) 1 mg Q15M PRN IM DECREASED GLUCOSE; Start 04/11/17 at 16:30 Glucose (Glutose) 15 gm Q15M PRN BUCCAL DECREASED GLUCOSE; Start 04/11/17 at 16 :30 Metoclopramide HCl (Reglan) 10 mg Q6 IV Last administered on 05/15/17 11:42; Admin Dose 10 MG; Start 04/12/17 at 18:00 Insulin Aspart (Novolog Insulin Pen) NOVOLOG *MILD* ALGORI... Q6H SC Last administered on 05/15/17 13:35; Admin Dose 1 UNIT; Start 04/15/17 at 00:00 IV Flush (NS 10 ml) 10 ml PRN PRN IV FLUSH LINE; Start 04/15/17 at 13:00 Amiodarone HCl (Cordarone) 200 mg BID GTB Last administered on 05/15/17 08:24; Admin Dose 200 MG; Start 04/16/17 at 13:00 Heparin Sodium (Porcine) (Heparin (5000 Units/0.5 ml)) 5,000 unit BID SC Last administered on 04/30/17 21:03; Admin Dose 5,000 UNIT; Start 04/18/17 at 16:22; Status Future Hold Citalopram Hydrobromide (Celexa) 20 mg DAILY NGT Last administered on 05/15/17 08:25; Admin Dose 20 MG; Start 04/19/17 at 09:00 Hydralazine HCl (Apresoline) 20 mg Q6H PRN IV sbp ABOVE 160 Last administered on 05/14/17 19:01; Admin Dose 20 MG; Start 04/18/17 at 18:30 Chlorhexidine Gluconate (Peridex) 15 ml BID MT Last administered on 05/15/17 08 :26; Admin Dose 15 ML; Start 04/22/17 at 21:00 Vitamin A/Vitamin D (Vitamin A & D Oint) 1 applic TID TOP Last administered on 05/15/17 13:33; Admin Dose 1 APPLIC; Start 04/22/17 at 21:00 Vitamin A/Vitamin D (Vitamin A & D Oint) 1 applic TID PRN TOP DRYNESS Last administered on 04/22/17 15:29; Admin Dose 1 APPLIC; Start 04/22/17 at 15:00 Acetaminophen/ Hydrocodone Bitart ([place] (5/325)) 1 tab Q6H GTB Last administered on 05/15/17 11:42; Admin Dose 1 TAB; Start 04/22/17 at 21:30 Spironolactone (Aldactone) 25 mg DAILY NGT Last administered on 05/15/17 08:25 ; Admin Dose 25 MG; Start 04/25/17 at 19:00; Status Future hold Diltiazem HCl (Cardizem Iv) 5 mg Q1H PRN IV HEART RATE GREATER THAN 120 Last administered on 04/29/17 06:17; Admin Dose 5 MG; Start 04/29/17 at 05:00 Metronidazole 500 mg 500 mg Q8 GTB Last administered on 05/15/17 13:33; Admin Dose 500 MG; Start 04/30/17 at 22:00 Sodium Chloride 1,000 ml @ 0 mls/hr Q0M IV Last administered on 05/01/17 03: 00; Admin Dose 1,000 MLS/HR; Start 05/01/17 at 03:00 Sodium Chloride (NS) 1,000 ml @ 0 mls/hr Q0M IV Last administered on 04:00; Admin Dose 1,000 MLS/HR; Start 05/01/17 at 03:30 Pantoprazole 40 mg 40 mg BID@06,18 IV Last administered on 05/15/17 05:50; Admin Dose 40 MG; Start 05/02/17 at 15:00 Diltiazem HCl (Cardizem-D5W 125 Mg/125 ml Drip) 125 ml @ 5 mls/hr TITRATE IV Last administered on 05/02/17 19:11; Admin Dose 5 MLS/HR; Start 05/02/17 at 19: 00 Valacyclovir HCl (Valtrex) 1,000 mg DAILY GTB Last administered on 05/15/17 08: 25; Admin Dose 1,000 MG; Start 05/06/17 at 09:00 Metoprolol Tartrate (Lopressor) 25 mg QID GTB Last administered on 05/15/17 13: 34; Admin Dose 25 MG; Start 05/07/17 at 09:00 Furosemide 40 mg 40 mg Q12 IV Last administered on 05/15/17 08:26; Admin Dose 40 MG; Start 05/08/17 at 09:00 Cefepime HCl (Maxipime 1gm/50 ml (Pmx)) 50 ml @ 100 mls/hr Q24H IVPB Last administered on 05/13/17 17:25; Admin Dose 100 MLS/HR; Start 05/08/17 at 18:00 Hydrocortisone (Solu-Cortef) 50 mg BID IV Last administered on 05/15/17 08:27; Admin Dose 50 MG; Start 05/10/17 at 21:00 Vitamin B Complex/ Vitamin C (Berocca) 1 cap DAILY PO Last administered on 08:26; Admin Dose 1 CAP; Start 05/13/17 at 09:00 Nystatin (Nystatin Susp) 5 ml QID PO Last administered on 05/15/17 13:33; Admin Dose 5 ML; Start 05/12/17 at 17:00 EMILIANO HCIKS May 15, 2017 14:37
[2017-05-15] MEDS: CEFEPIME 1GM/50 ML (PMX) 50 ML IVPB SCH (18:26)
[2017-05-16] VITALS (27 sets, daily range): BP systolic 115–173; BP diastolic 58–86; PULSE 62–76; RESP 15–20
[2017-05-16] MEDS: METOCLOPRAMIDE 10 MG INJ IV SCH ×4 (00:50→17:33)
[2017-05-16] MEDS: LEVALBUTEROL (HFA) 15 GM INHALER INH SCH ×4 (01:10→19:18)
[2017-05-16] MEDS: HYDROCODONE/APAP (5/325) TAB GTB SCH ×4 (03:30→21:51)
[2017-05-16 05:57] LABS: ABNORMAL IP MESSAGE 1; BASOPHILS % 0.3 % (0.0-2.0); HEMATOCRIT 34.5 % (37.0-47.0); HEMOGLOBIN 11.7 g/dl (12.0-16.0); LYMPHOCYTES # 0.8 10^3/ul (0.8-2.9); LYMPHOCYTES % 5.7 % (15.0-51.0); MEAN CORPUSCULAR HEMOGLOBIN 29.8 pg (29.0-33.0); MEAN CORPUSCULAR HGB CONC 33.9 g/dl (32.0-37.0); MEAN PLATELET VOLUME 11.7 fl (7.4-10.4); MONOCYTE # 0.6 10^3/ul (0.3-0.9); MONOCYTES % 4.4 % (0.0-11.0); NEUTROPHIL # 11.9 10^3/ul (1.6-7.5); NEUTROPHILS % 83.1 % (39.0-77.0); NUCLEATED RED BLOOD CELLS% 0.1 /100WBC (0.0-0.0); PLATELET COUNT 328 10^3/UL (140-415); RED BLOOD COUNT 3.92 10^6/ul (4.20-5.40); RED CELL DISTRIBUTION WIDTH 17.9 % (11.5-14.5); WHITE BLOOD COUNT 14.3 10^3/ul (4.8-10.8)
[2017-05-16 06:37] LABS: ALBUMIN 2.9 g/dl (3.3-4.9); ALBUMIN/GLOBULIN RATIO 1.26; BILIRUBIN,INDIRECT 0.2 mg/dl (0-1.1); BILIRUBIN,TOTAL 0.2 mg/dl (0.2-1.3); CALCIUM 8.7 mg/dl (8.4-10.2); CREATININE 1.82 mg/dl (0.44-1.00); MAGNESIUM 2.3 mg/dl (1.7-2.5); POTASSIUM 3.7 mmol/L (3.5-5.1); TOTAL PROTEIN 5.2 g/dl (6.1-8.1)
[2017-05-16] MEDS: metroNIDAZOLE 500 MG TAB GTB SCH ×3 (06:39→21:48)
[2017-05-16] MEDS: PANTOPRAZOLE 40 MG INJ IV SCH ×2 (06:39→17:33)
[2017-05-16] MEDS: LEVOTHYROXINE 75 MCG TAB GTB SCH (06:40)
[2017-05-16] MEDS: INSULIN ASPART [NOVOLOG] 3 ML PEN SC SCH ×4 (06:41→17:34)
[2017-05-16 06:42] LABS: POSITIVE DIFF @See below
[2017-05-16] MEDS: METOPROLOL 25 MG TAB GTB SCH ×4 (09:00→21:49)
[2017-05-16] MEDS: AMIODARONE 200 MG TAB GTB SCH ×2 (09:00→21:49)
[2017-05-16] MEDS: SPIRONOLACTONE 25 MG TAB NGT SCH (09:09)
[2017-05-16] MEDS: VITAMIN B COMPLEX/VIT C CAP PO SCH (09:09)
[2017-05-16] MEDS: CITALOPRAM 20 MG TAB NGT SCH (09:09)
[2017-05-16] MEDS: VALACYCLOVIR 500 MG TAB GTB SCH (09:09)
[2017-05-16] MEDS: HYDROCORTISONE 100 MG INJ IV SCH ×2 (09:09→21:48)
[2017-05-16] MEDS: VITAMIN A & D 5 GM OINT PACKET TOP SCH ×3 (09:10→21:48)
[2017-05-16] MEDS: NYSTATIN SUSP 5 ML CUP PO SCH ×4 (09:10→21:48)
[2017-05-16] MEDS: CHLORHEXIDINE GLUCONATE 15 ML UD CUP MT SCH ×2 (09:11→21:48)
[2017-05-16] MEDS: FUROSEMIDE 40 MG INJ IV SCH ×2 (09:12→21:49)
[2017-05-16] MEDS: COLISTIMETHATE (25 MG/ML INHAL SYG) NEB SCH ×2 (09:33→19:18)
--- NOTE | 2017-05-16 09:43 | PN ---
DATE: 05/16/2017 SUBJECTIVE DATA: The patient remains stable on ventilatory support. No other acute events noted. The patient's urinary output has been adequate, but still remains grossly volume overloaded. No other events noted. OBJECTIVE DATA: VITAL SIGNS: Blood pressure is 120/78, respirations 16, pulse 63, temperature is 98.3. HEENT: Head is normocephalic. NECK: Supple. HEART: Regular rate. LUNGS: Show diminished breath sounds at the base. ABDOMEN: Soft, nontender to palpation. No rebound or guarding. EXTREMITIES: Negative for clubbing, cyanosis. Positive for edema. DERMATOLOGIC: Clean. No rashes. MUSCULOSKELETAL: No joint effusion. NEUROLOGIC: No change in exam. MEDICATIONS: Reviewed. LABORATORY AND DIAGNOSTIC DATA: Show sodium 135, potassium 3.7, chloride 92, BUN 100, creatinine 1.82. White count is 14.3, hemoglobin 11.7, crit 34.5, platelet count is 328. ASSESSMENT AND PLAN: 1. Ventilatory-dependant respiratory failure. Vent settings reviewed. ABGs reviewed. Continue to monitor. Follow up with Pulmonary. 2. History of thyroid cancer with tracheomalacia. The patient is status post ENT evaluation. Appreciate recommendations. Continue to monitor. 3. Nonoliguric acute kidney injury on top of chronic kidney disease. Etiology of acute kidney injury secondary acute tubular necrosis. The patient is currently dialysis dependent. Plan for hemodialysis today for 3 hours with 3K bath, calcium 2.5, ultrafiltration as tolerated. Monitor for signs of recovery. 4. Volume overload secondary to acute kidney injury, congestive heart failure. Continue ultrafiltration dialysis. 5. Sepsis, status post shock secondary to aspiration pneumonia, fungemia. Continue antibiotic therapy, antifungal therapy. 6. Adrenal insufficiency. Continue current steroid regimen. 7. Acute encephalopathy. Etiology is toxic metabolic. Continue to monitor. 8. Hypothyroidism. Continue Synthroid. 9. Anemia. Continue to monitor H and H levels. 10. Mineral bone disorder. Continue to monitor calcium and phosphorus levels. 11. History of congestive heart failure. 12. Leukocytosis multifactorial secondary to steroids but improving. 13. Left upper extremity deep vein thrombosis. Continue to hold antiplatelets. Due to recent gastrointestinal bleed. 14. Dysphagia. Continue tube feeding. 15. . Continue current medical management. 16. Status post upper gastrointestinal bleed. 17. Gastrointestinal and deep venous thrombosis prophylaxis. Continue proton pump inhibitor and sequential leg squeezes. Dictated By: Abebe Valderrama DO /marquita/laith /Document#: [id number]
--- NOTE | 2017-05-16 11:37 | CONS ---
Date/Time of Note Date/Time of Note DATE: 05/16/17 TIME: 11:34 Assessment/Plan Assessment/Plan Chief Complaint/Hosp Course Assessment/Plan Chief Complaint/Hosp Course ID PROGRESS NOTE CURRENT ABX=> Flagyl, Valtrex, + Cefepime #5 + Colistin INH #4 Cancidas -> DC 05/10 Merrem -> DC'd 05/08 Merrem #14 total -> DC'd 04/26=> Restarted 24H INTERVAL SUMMARY/HOSPITAL COURSE * Resting comfortably. Facial and Lip edema has improved. Lip lesions healing. No fevers. * 05/11/17 CXR: Prominent interstitial markings are seen. No dense consolidation or pleural effusion is seen. * 05/06 SPUTUM RESPIRATORY CULTURE Final Organism 1 PSEUDOMONAS AERUGINOSA QUANTITY 2+ P.AERUG M.I.C. RX --------- --- AMIKACIN <=2 S AZTREONAM R CEFEPIME 8 S CEFTAZIDIME 8 S CIPROFLOXACIN I GENTAMICIN <=1 S IMIPENEM >=16 R LEVOFLOXACIN >=8 R TOBRAMYCIN <=1 S PIPERACILLIN/TAZOBACTAM 32 S PHYSICAL EXAMINATION: GENERAL: 66 yo F, stable on the Vent HEENT: Atraumatic, (+)Lip crusting lesions healing NECK: (+)Trach in place secure to VENT CHEST: Rise symmetrical w/coarse BS, scattered rales/rhonchi ABDOMEN: Soft, peg EXTREMITIES: Warm, moves extremities ID ASSESSMENT: 66 yo F w/PMHx tongue cancer, chronic trach re-admit [facility] from [facility] with: 1. s/p Acute severe sepsis/shock on admission w/(+)fever, tachycardia, lactic acidosis, leukocytosis, (+)troponin leak = RESOLVING * Leukocytosis persisting -> IV Steroids onboard * Fungemia => repeat BCx negative 2. Anasarca w/increased facial edema/bilateral lip edema w/resolving HSV lip lesions resolving * -- facial edema is worse due to patient preference while sitting up to lean her head forward w/neck flexion over her trach/trach-tie -- this position compromised jugular venous return. 3. Acute respiratory failure = recurrent issue s/p intubation x3rd episode w/ extubation, now with Trach secure to Vent 3. HCAP=> Recurrent Aspiration PNA post emesis // Hx of GNR tracheobronchitis * Sputum 04/21/17 (+)Yeast * Sputum 05/06/17 (+)PSAR 4. Acute CHF w/elevated BNP 8000 in setting tachycardia, sepsis, pulmonary edema on CXR 5. s/p Nausea w/emesis on admission -> RESOLVED * Query: DM Autonomic Gastroparesis * GERD 6. Cholelithiasis w/dilated CBD->HIDA scan (+cholecystitis 04/12/17=> s/p Mansi Drain 04/17/17, no surgery per GI 7. Acute renal failure = started on HD 8. Dysphagia sp PEG placement 9. Paroxysmal Afib 10. NSTEMI in setting sepsis, tachycardia, acute hypoxic respiratory failure, acute CHF exacerbation 11. Elevated glucose - iatrogenic diabetes while on IV steroids 12. Leukocytosis = partial steroids demargination 13. Lip lesions => consistent w/herpes simplex virus outbreak -> On Valtrex HEALING 14. s/p GIB associates with Acute on chronic anemia secondary to AVM ==> stopped , status post EGD on May 02 with injection of epinephrine 15. Recent (+)C.Diff on 03/07/16 (treated) w/(-)C.Diff 03/20/17 (-) MRSA Nares screen (04/03/17) INVASIVES: Trach, PEG, FC, R-FEM Amrit (05/04/17) ABX ALLERGY: Iodine CURRENT ABX: => Flagyl, Valtrex, + Cefepime #5 + Colistin INH #4 Cancidas-> DC 05/10 Merrem -> DC'd 05/08 Merrem #14 total -> DC'd 04/26=> Restarted ID PLAN: 1. Continue Valtrex until lip lesions healed, continue empiric Flagyl while on ABX for PSAR PNA * Continue current ABX --PSAR is sensitive to Cefepime + Colistin INH 2. Hx of C.Diff-> Keep on Flagyl while PSAR Trach decolonization ABX completed 3. Added Nystain PO oral swish spit + Vit B/C complex -- lip/mouth lesions healing 4. Monitor Labs. GI Prophylaxis. DVT Prophylaxis. Problems: Consultation Date/Type/Reason Admit Date/Time Apr 11, 2017 at 11:28 Initial Consult Date 05/01/17 Type of Consultation: id Referring Provider: NINA MACIEL DO Exam/Review of Systems Vital Signs Vitals Vital Signs Date Time Temp Pulse Resp B/P Pulse Ox O2 Delivery O2 Flow Rate FiO2 05/16/17 11:23 98.0 66 16 118/63 96 05/16/17 09:30 30 Intake and Output 05/15/17 05/15/17 05/16/17 15:00 23:00 07:00 Intake Total 1150 ml 1000 ml Output Total 550 ml 800 ml Balance 600 ml 200 ml Results Result Diagram: 05/16/17 0540 05/16/17 0540 Results 24 hrs Laboratory Tests Test 05/15/17 13:31 05/15/17 18:37 05/16/17 00:55 05/16/17 05:39 Bedside Glucose 167 199 137 152 Test 05/16/17 05:40 05/16/17 05:43 White Blood Count 14.3 H Red Blood Count 3.92 L Hemoglobin 11.7 L Hematocrit 34.5 L Mean Corpuscular Volume 88.0 Mean Corpuscular Hemoglobin 29.8 Mean Corpuscular Hemoglobin Concent 33.9 Red Cell Distribution Width 17.9 H Platelet Count 328 # Mean Platelet Volume 11.7 H Neutrophils % 83.1 H Lymphocytes % 5.7 L Monocytes % 4.4 Eosinophils % 0.0 Basophils % 0.3 Nucleated Red Blood Cells % 0.1 H Neutrophils # 11.9 H Lymphocytes # 0.8 Monocytes # 0.6 Eosinophils # 0.0 Basophils # 0.0 Nucleated Red Blood Cells # 0.0 Sodium Level 135 Potassium Level 3.7 Chloride Level 92 L Carbon Dioxide Level 29 Anion Gap 18 H Blood Urea Nitrogen 100 H Creatinine 1.82 H Glucose Level 154 Calcium Level 8.7 Phosphorus Level 3.2 Magnesium Level 2.3 Total Bilirubin 0.2 Direct Bilirubin 0.00 Indirect Bilirubin 0.2 Aspartate Amino Transf (AST/SGOT) 30 Alanine Aminotransferase (ALT/SGPT) 40 Alkaline Phosphatase 155 H Total Protein 5.2 L Albumin 2.9 L Globulin 2.30 Albumin/Globulin Ratio 1.26 Lab Scanned Report BLOOD TRANSFUSION Medications Medications Current Medications Aspirin (Aspirin) 325 mg DAILY NGT Last administered on 04/30/17 08:43; Admin Dose 325 MG; Start 04/12/17 at 09:00; Status Future Hold Metoprolol Tartrate (Lopressor) 5 mg Q4H PRN IV HR>110 Hold SBP<110 Last administered on 04/20/17 17:36; Admin Dose 5 MG; Start 04/11/17 at 13:30 Miscellaneous Information 1 ea NOTE XX ; Start 04/11/17 at 16:30 Glucose (Glutose) 15 gm Q15M PRN PO DECREASED GLUCOSE Last administered on 05/07 03:27; Admin Dose 15 GM; Start 04/11/17 at 16:30 Glucose (Glutose) 22.5 gm Q15M PRN PO DECREASED GLUCOSE; Start 04/11/17 at 16: 30 Dextrose (D50w Syringe) 25 ml Q15M PRN IV DECREASED GLUCOSE Last administered on 04/12/17 23:56; Admin Dose 25 ML; Start 04/11/17 at 16:30 Dextrose (D50w Syringe) 50 ml Q15M PRN IV DECREASED GLUCOSE; Start 04/11/17 at 16:30 Glucagon (Glucagen) 1 mg Q15M PRN IM DECREASED GLUCOSE; Start 04/11/17 at 16:30 Glucose (Glutose) 15 gm Q15M PRN BUCCAL DECREASED GLUCOSE; Start 04/11/17 at 16 :30 Metoclopramide HCl (Reglan) 10 mg Q6 IV Last administered on 05/16/17 06:39; Admin Dose 10 MG; Start 04/12/17 at 18:00 Insulin Aspart (Novolog Insulin Pen) NOVOLOG *MILD* ALGORI... Q6H SC Last administered on 05/16/17 06:41; Admin Dose 1 UNIT; Start 04/15/17 at 00:00 IV Flush (NS 10 ml) 10 ml PRN PRN IV FLUSH LINE; Start 04/15/17 at 13:00 Amiodarone HCl (Cordarone) 200 mg BID GTB Last administered on 05/15/17 22:11; Admin Dose 200 MG; Start 04/16/17 at 13:00 Heparin Sodium (Porcine) (Heparin (5000 Units/0.5 ml)) 5,000 unit BID SC Last administered on 04/30/17 21:03; Admin Dose 5,000 UNIT; Start 04/18/17 at 16:22; Status Future Hold Citalopram Hydrobromide (Celexa) 20 mg DAILY NGT Last administered on 05/16/17 09:09; Admin Dose 20 MG; Start 04/19/17 at 09:00 Hydralazine HCl (Apresoline) 20 mg Q6H PRN IV sbp ABOVE 160 Last administered on 05/14/17 19:01; Admin Dose 20 MG; Start 04/18/17 at 18:30 Chlorhexidine Gluconate (Peridex) 15 ml BID MT Last administered on 05/16/17 09 :11; Admin Dose 15 ML; Start 04/22/17 at 21:00 Vitamin A/Vitamin D (Vitamin A & D Oint) 1 applic TID TOP Last administered on 05/16/17 09:10; Admin Dose 1 APPLIC; Start 04/22/17 at 21:00 Vitamin A/Vitamin D (Vitamin A & D Oint) 1 applic TID PRN TOP DRYNESS Last administered on 04/22/17 15:29; Admin Dose 1 APPLIC; Start 04/22/17 at 15:00 Acetaminophen/ Hydrocodone Bitart (Cyclone (5/325)) 1 tab Q6H GTB Last administered on 05/16/17 10:01; Admin Dose 1 TAB; Start 04/22/17 at 21:30 Spironolactone (Aldactone) 25 mg DAILY NGT Last administered on 05/16/17 09:09 ; Admin Dose 25 MG; Start 04/25/17 at 19:00; Status Future hold Diltiazem HCl (Cardizem Iv) 5 mg Q1H PRN IV HEART RATE GREATER THAN 120 Last administered on 04/29/17 06:17; Admin Dose 5 MG; Start 04/29/17 at 05:00 Metronidazole 500 mg 500 mg Q8 GTB Last administered on 05/16/17 06:39; Admin Dose 500 MG; Start 04/30/17 at 22:00 Sodium Chloride 1,000 ml @ 0 mls/hr Q0M IV Last administered on 05/01/17 03: 00; Admin Dose 1,000 MLS/HR; Start 05/01/17 at 03:00 Sodium Chloride (NS) 1,000 ml @ 0 mls/hr Q0M IV Last administered on 04:00; Admin Dose 1,000 MLS/HR; Start 05/01/17 at 03:30 Pantoprazole 40 mg 40 mg BID@06,18 IV Last administered on 05/16/17 06:39; Admin Dose 40 MG; Start 05/02/17 at 15:00 Diltiazem HCl (Cardizem-D5W 125 Mg/125 ml Drip) 125 ml @ 5 mls/hr TITRATE IV Last administered on 05/02/17 19:11; Admin Dose 5 MLS/HR; Start 05/02/17 at 19: 00 Valacyclovir HCl (Valtrex) 1,000 mg DAILY GTB Last administered on 05/16/17 09: 09; Admin Dose 1,000 MG; Start 05/06/17 at 09:00 Metoprolol Tartrate (Lopressor) 25 mg QID GTB Last administered on 05/15/17 22: 11; Admin Dose 25 MG; Start 05/07/17 at 09:00 Furosemide 40 mg 40 mg Q12 IV Last administered on 05/16/17 09:12; Admin Dose 40 MG; Start 05/08/17 at 09:00 Cefepime HCl (Maxipime 1gm/50 ml (Pmx)) 50 ml @ 100 mls/hr Q24H IVPB Last administered on 05/15/17 18:26; Admin Dose 100 MLS/HR; Start 05/08/17 at 18:00 Hydrocortisone (Solu-Cortef) 50 mg BID IV Last administered on 05/16/17 09:09; Admin Dose 50 MG; Start 05/10/17 at 21:00 Vitamin B Complex/ Vitamin C (Berocca) 1 cap DAILY PO Last administered on 09:09; Admin Dose 1 CAP; Start 05/13/17 at 09:00 Nystatin (Nystatin Susp) 5 ml QID PO Last administered on 05/16/17 09:10; Admin Dose 5 ML; Start 05/12/17 at 17:00 DOUG GARCES NP May 16, 2017 11:37
--- NOTE | 2017-05-16 12:25 | PN ---
Date/Time of Note Date/Time of Note DATE: 05/16/17 TIME: 12:18 Assessment/Plan Lines/Catheters IV Catheter Type (from [facility]): BHARTI CATH Latif in Place (from [facility]): Yes Assessment/Plan Chief Complaint/Hosp Course 1. Cholelithiasis: Tolerating tube feeds; no abdominal pain/discomfort; +bowel function -No surgical intervention required at this time 2. Pneumonia: Recurrent +sputum cultures; appears comfortable -pulmonary toilet -abx per ID 3. Vent dependent respiratory failure: 2/2 aspiration PNA+ CHF;reintubated and extubated, coded 04/21 and 05/01; comfortable on vent -as above 4. Septic Shock resolved 5. Uncontrolled Afib: s/p amiodarone drip, on oral amiodarone; episodes of Afib Now SR -medical optimization 6. Leukocytosis with lactic acidosis: 2/2 pneumonia +/- steroids vs.fungemia vs other (urine, repeat blood cultures negative); improving -abx, antifungals -supportive measures 7. Macrocytic anemia: chronic vs. dilutional vs. acute bleed vs. b12/folate deficiency; hh stable -monitor -Transfuse as needed 8. KEYONNA: likely 2/2 septic shock HD; with + urine output -judicious fluid management -avoid nephrotoxic agents 9. CHF: BNP elevated -judicious fluid management -medical optimization 10. Adrenal Insufficiency -solucortef 11. Oral lesions: improving 12. Hypothyroidism; tsh elevated -on synthroid 13. Encephalopathy: 2/2 toxic metabolic vs. anoxic injury; CT: No acute intracranial hemorrhage or mass effect. Mild chronic microvascular disease and intracranial atherosclerosis; EEG shows no seizure activity: fully awake -supportive 14. Bilateral upper extremity edema: likely 2/2 decreased movement vs. thrombosis; initial doppler negative, repeat doppler left arm (+) Thrombus -elevate extremities -supportive 15. Hypoalbuminemia: 2/2 malnutrition +/- inflammation; decreased; tolerating tf ; -nutrition optimization -as above 16. Hypocalcemia with hypoalbuminemia -optimize nutrition 17. Fungemia -antifungals Patient seen and examined in collaboration with Dr. Justus Antonio. Thank you Problems: Subjective 24 Hr Interval Summary HD today. Up with PT. sleepy. No SOB. comfortable on vent. Tolerating tf with + bowel function. No fevers, chills, cough, cp, palpitations, n/v/d. Exam/Review of Systems Vital Signs Vitals Vital Signs Date Time Temp Pulse Resp B/P Pulse Ox O2 Delivery O2 Flow Rate FiO2 05/16/17 11:30 65 18 100 30 05/16/17 11:23 98.0 118/63 Intake and Output 05/15/17 05/15/17 05/16/17 15:00 23:00 07:00 Intake Total 1150 ml 1000 ml Output Total 550 ml 800 ml Balance 600 ml 200 ml Exam Free Text/Dictation Constitutional: somnolent Head: atraumatic, normocephalic Eyes: PERRL, nl lids, nl sclera ENMT: No mucosa pink and moist (pink and moist with healing perioral lesions) Neck: non-tender, supple, tracheostomy Respiratory: diminished, comfortable on vent Cardiovascular: nl pulses, regular rate and rhythm, Gastrointestinal: non distended, GT tubes site no erythema, no drainage, non tenderness, bowel sounds x 4 quads, soft; tf ongoing Genitourinary - Female: nl external genitalia Musculoskeletal: nl extremities to inspection Extremities: normal pulses, bilateral upper/lower extremity edema 2+; improving Neurological: responsive Skin: nl turgor, No rash or lesions Lymph: nl lymph nodes Results Result Diagram: 05/16/17 0540 05/16/17 0540 ADDISON FREGOSO NP May 16, 2017 12:25
[2017-05-16] MEDS ORDERED: ALTEPLASE (CATHFLO) 2 MG INJ CATHETER ONE ×2 (12:30)
--- NOTE | 2017-05-16 14:18 | CONS ---
Date/Time of Note Date/Time of Note DATE: 05/16/17 TIME: 14:16 Assessment/Plan Assessment/Plan Additional Assessment/Plan Ventilator setting; AC of 16, tidal volume 500, PEEP of 5, 30% FiO2. Assessment and recommendations; 1. Patient admitted for severe sepsis and pneumonia with significant clinical improvement. 2. History of chronic respiratory failure status post redo tracheostomy 2. 3. Remote history of glossal cancer. 4. Acute renal failure, on hemodialysis. 5. Improvement in generalized anasarca. 6. Generalized muscular deconditioning. 7. COPD. 8. Anemia. Continue current treatment. Prognosis is guarded. Consultation Date/Type/Reason Admit Date/Time Apr 11, 2017 at 11:28 Initial Consult Date 05/01/17 Type of Consultation: Pulmonary Referring Provider: NINA MACIEL DO 24 HR Interval Summary Free Text/Dictation Patient condition is stable. Patient however is progressively getting more somnolent. General exam; elderly female, on ventilator via tracheostomy, currently in no distress. Exam/Review of Systems Vital Signs Vitals Vital Signs Date Time Temp Pulse Resp B/P Pulse Ox O2 Delivery O2 Flow Rate FiO2 05/16/17 13:10 78 16 99 30 05/16/17 11:23 98.0 118/63 Intake and Output 05/15/17 05/15/17 05/16/17 15:00 23:00 07:00 Intake Total 1150 ml 1000 ml Output Total 550 ml 800 ml Balance 600 ml 200 ml Exam HEENT exam; supple neck, no JVD. No lymphadenopathy. Midline trachea. No thyromegaly. Tracheostomy placed. There is mild excoriation of lips. Patient has fair dentition. Chest exam; diminished but clear breath sound. S1-S2 audible, no murmurs. Regular rhythm. Abdomen exam; soft, G-tube in place. Bowel sounds audible. Nontender. No organomegaly. Extremity exam; trace edema. Patient has a multiple ecchymosis involving all 4 extremities. 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 Results Result Diagram: 05/16/17 0540 05/16/17 0540 Results 24 hrs Laboratory Tests Test 05/15/17 18:37 05/16/17 00:55 05/16/17 05:39 05/16/17 05:40 Bedside Glucose 199 137 152 White Blood Count 14.3 H Red Blood Count 3.92 L Hemoglobin 11.7 L Hematocrit 34.5 L Mean Corpuscular Volume 88.0 Mean Corpuscular Hemoglobin 29.8 Mean Corpuscular Hemoglobin Concent 33.9 Red Cell Distribution Width 17.9 H Platelet Count 328 # Mean Platelet Volume 11.7 H Neutrophils % 83.1 H Lymphocytes % 5.7 L Monocytes % 4.4 Eosinophils % 0.0 Basophils % 0.3 Nucleated Red Blood Cells % 0.1 H Neutrophils # 11.9 H Lymphocytes # 0.8 Monocytes # 0.6 Eosinophils # 0.0 Basophils # 0.0 Nucleated Red Blood Cells # 0.0 Sodium Level 135 Potassium Level 3.7 Chloride Level 92 L Carbon Dioxide Level 29 Anion Gap 18 H Blood Urea Nitrogen 100 H Creatinine 1.82 H Glucose Level 154 Calcium Level 8.7 Phosphorus Level 3.2 Magnesium Level 2.3 Total Bilirubin 0.2 Direct Bilirubin 0.00 Indirect Bilirubin 0.2 Aspartate Amino Transf (AST/SGOT) 30 Alanine Aminotransferase (ALT/SGPT) 40 Alkaline Phosphatase 155 H Total Protein 5.2 L Albumin 2.9 L Globulin 2.30 Albumin/Globulin Ratio 1.26 Test 05/16/17 05:43 05/16/17 11:30 Lab Scanned Report BLOOD TRANSFUSION Bedside Glucose 159 Medications Medications Current Medications Aspirin (Aspirin) 325 mg DAILY NGT Last administered on 04/30/17 08:43; Admin Dose 325 MG; Start 04/12/17 at 09:00; Status Future Hold Metoprolol Tartrate (Lopressor) 5 mg Q4H PRN IV HR>110 Hold SBP<110 Last administered on 04/20/17 17:36; Admin Dose 5 MG; Start 04/11/17 at 13:30 Miscellaneous Information 1 ea NOTE XX ; Start 04/11/17 at 16:30 Glucose (Glutose) 15 gm Q15M PRN PO DECREASED GLUCOSE Last administered on 05/07 03:27; Admin Dose 15 GM; Start 04/11/17 at 16:30 Glucose (Glutose) 22.5 gm Q15M PRN PO DECREASED GLUCOSE; Start 04/11/17 at 16: 30 Dextrose (D50w Syringe) 25 ml Q15M PRN IV DECREASED GLUCOSE Last administered on 04/12/17 23:56; Admin Dose 25 ML; Start 04/11/17 at 16:30 Dextrose (D50w Syringe) 50 ml Q15M PRN IV DECREASED GLUCOSE; Start 04/11/17 at 16:30 Glucagon (Glucagen) 1 mg Q15M PRN IM DECREASED GLUCOSE; Start 04/11/17 at 16:30 Glucose (Glutose) 15 gm Q15M PRN BUCCAL DECREASED GLUCOSE; Start 04/11/17 at 16 :30 Metoclopramide HCl (Reglan) 10 mg Q6 IV Last administered on 05/16/17 06:39; Admin Dose 10 MG; Start 04/12/17 at 18:00 Insulin Aspart (Novolog Insulin Pen) NOVOLOG *MILD* ALGORI... Q6H SC Last administered on 05/16/17 11:34; Admin Dose 1 UNIT; Start 04/15/17 at 00:00 IV Flush (NS 10 ml) 10 ml PRN PRN IV FLUSH LINE; Start 04/15/17 at 13:00 Amiodarone HCl (Cordarone) 200 mg BID GTB Last administered on 05/15/17 22:11; Admin Dose 200 MG; Start 04/16/17 at 13:00 Heparin Sodium (Porcine) (Heparin (5000 Units/0.5 ml)) 5,000 unit BID SC Last administered on 04/30/17 21:03; Admin Dose 5,000 UNIT; Start 04/18/17 at 16:22; Status Future Hold Citalopram Hydrobromide (Celexa) 20 mg DAILY NGT Last administered on 05/16/17 09:09; Admin Dose 20 MG; Start 04/19/17 at 09:00 Hydralazine HCl (Apresoline) 20 mg Q6H PRN IV sbp ABOVE 160 Last administered on 05/14/17 19:01; Admin Dose 20 MG; Start 04/18/17 at 18:30 Chlorhexidine Gluconate (Peridex) 15 ml BID MT Last administered on 05/16/17 09 :11; Admin Dose 15 ML; Start 04/22/17 at 21:00 Vitamin A/Vitamin D (Vitamin A & D Oint) 1 applic TID TOP Last administered on 05/16/17 14:13; Admin Dose 1 APPLIC; Start 04/22/17 at 21:00 Vitamin A/Vitamin D (Vitamin A & D Oint) 1 applic TID PRN TOP DRYNESS Last administered on 04/22/17 15:29; Admin Dose 1 APPLIC; Start 04/22/17 at 15:00 Acetaminophen/ Hydrocodone Bitart ([place] (5/325)) 1 tab Q6H GTB Last administered on 05/16/17 10:01; Admin Dose 1 TAB; Start 04/22/17 at 21:30 Spironolactone (Aldactone) 25 mg DAILY NGT Last administered on 05/16/17 09:09 ; Admin Dose 25 MG; Start 04/25/17 at 19:00; Status Future hold Diltiazem HCl (Cardizem Iv) 5 mg Q1H PRN IV HEART RATE GREATER THAN 120 Last administered on 04/29/17 06:17; Admin Dose 5 MG; Start 04/29/17 at 05:00 Metronidazole 500 mg 500 mg Q8 GTB Last administered on 05/16/17 14:13; Admin Dose 500 MG; Start 04/30/17 at 22:00 Sodium Chloride 1,000 ml @ 0 mls/hr Q0M IV Last administered on 05/01/17 03: 00; Admin Dose 1,000 MLS/HR; Start 05/01/17 at 03:00 Sodium Chloride (NS) 1,000 ml @ 0 mls/hr Q0M IV Last administered on 04:00; Admin Dose 1,000 MLS/HR; Start 05/01/17 at 03:30 Pantoprazole 40 mg 40 mg BID@06,18 IV Last administered on 05/16/17 06:39; Admin Dose 40 MG; Start 05/02/17 at 15:00 Diltiazem HCl (Cardizem-D5W 125 Mg/125 ml Drip) 125 ml @ 5 mls/hr TITRATE IV Last administered on 05/02/17 19:11; Admin Dose 5 MLS/HR; Start 05/02/17 at 19: 00 Valacyclovir HCl (Valtrex) 1,000 mg DAILY GTB Last administered on 05/16/17 09: 09; Admin Dose 1,000 MG; Start 05/06/17 at 09:00 Metoprolol Tartrate (Lopressor) 25 mg QID GTB Last administered on 05/16/17 14: 15; Admin Dose 25 MG; Start 05/07/17 at 09:00 Furosemide 40 mg 40 mg Q12 IV Last administered on 05/16/17 09:12; Admin Dose 40 MG; Start 05/08/17 at 09:00 Cefepime HCl (Maxipime 1gm/50 ml (Pmx)) 50 ml @ 100 mls/hr Q24H IVPB Last administered on 05/15/17 18:26; Admin Dose 100 MLS/HR; Start 05/08/17 at 18:00 Hydrocortisone (Solu-Cortef) 50 mg BID IV Last administered on 05/16/17 09:09; Admin Dose 50 MG; Start 05/10/17 at 21:00 Vitamin B Complex/ Vitamin C (Berocca) 1 cap DAILY PO Last administered on 09:09; Admin Dose 1 CAP; Start 05/13/17 at 09:00 Nystatin (Nystatin Susp) 5 ml QID PO Last administered on 05/16/17 14:13; Admin Dose 5 ML; Start 05/12/17 at 17:00 EMILIANO HICKS May 16, 2017 14:18
--- NOTE | 2017-05-16 14:53 | PN ---
Date/Time of Note Date/Time of Note DATE: 05/16/17 TIME: 14:51 Assessment/Plan VTE Prophylaxis VTE Prophylaxis Intervention: other Lines/Catheters IV Catheter Type (from Nrs): BHARTI CATH Urinary Cath still in place: Yes Reason Cath still needed: other (indicate) Assessment/Plan Chief Complaint/Hosp Course 1. acute on chronic hypoxemic respiratory failure: 2. NSTEMI: due to demand ischemia. 3. CHF/ fluid overload: due to diastolic heart failure 4. moderate 5. Arrhythmia and P afib, frequent PVC: currently in NSR. 6. ANEMIA: s/p multiple transfusion 7. s/p pneumonia, . 8. s/p sepsis and shock: BP is stable now. 9. Anasarca 10. s/p cardiopulm arrest due to resp failure 11. renal failure on HD now. 12. coagulopathy Rec: off of ASA due to active bleeding and severe anemia and coagulopathy. resp care as per PULM Team. correct lytes prn. keep K > 4, Mg > 2 CONT betablocker as tolerated. . cont thyroid supplement . cont tele monitoring HD/ ultrafiltration as per renal. transfuse prn THANK YOU. Problems: Subjective 24 Hr Interval Summary Free Text/Dictation CARDIOLOGY FOLLOW UP NOTE: D/W staff , d/w . rhythm was reviewed. pt remains in NSR. no afib overnight no chest pain or pressure or palpitations. pt still s/p trach on vent pt with anemia and s/p transfusion again on 05/14/17 s/p HD Objective: General: s/p trach on vent HEENT: NC/AT. . oropharynx with multiple lesions. . NECK: NO JVD. no stridor. s/p trach on vent CV: RRR. systolic ejection murmur; no gallop or rubs. PULM: + diffuse rhonchi. no wheezes. GI: SOFT, NT, ND, no rebound or guarding s/p PEG Extremity: 1-2+ B/L LE edema. no clubbing. neuro: Drowsy. sleepy. Psych: calm rectal: deferred Derm: multiple echymosis : S/P mims catheter in place. Exam/Review of Systems Vital Signs Vitals Vital Signs Date Time Temp Pulse Resp B/P Pulse Ox O2 Delivery O2 Flow Rate FiO2 05/16/17 13:10 78 16 99 30 05/16/17 11:23 98.0 118/63 Intake and Output 05/15/17 05/15/17 05/16/17 15:00 23:00 07:00 Intake Total 1150 ml 1000 ml Output Total 550 ml 800 ml Balance 600 ml 200 ml Results Result Diagram: 05/16/17 0540 05/16/17 0540 Results 24 hrs Laboratory Tests Test 05/15/17 18:37 05/16/17 00:55 05/16/17 05:39 05/16/17 05:40 Bedside Glucose 199 137 152 White Blood Count 14.3 H Red Blood Count 3.92 L Hemoglobin 11.7 L Hematocrit 34.5 L Mean Corpuscular Volume 88.0 Mean Corpuscular Hemoglobin 29.8 Mean Corpuscular Hemoglobin Concent 33.9 Red Cell Distribution Width 17.9 H Platelet Count 328 # Mean Platelet Volume 11.7 H Neutrophils % 83.1 H Lymphocytes % 5.7 L Monocytes % 4.4 Eosinophils % 0.0 Basophils % 0.3 Nucleated Red Blood Cells % 0.1 H Neutrophils # 11.9 H Lymphocytes # 0.8 Monocytes # 0.6 Eosinophils # 0.0 Basophils # 0.0 Nucleated Red Blood Cells # 0.0 Sodium Level 135 Potassium Level 3.7 Chloride Level 92 L Carbon Dioxide Level 29 Anion Gap 18 H Blood Urea Nitrogen 100 H Creatinine 1.82 H Glucose Level 154 Calcium Level 8.7 Phosphorus Level 3.2 Magnesium Level 2.3 Total Bilirubin 0.2 Direct Bilirubin 0.00 Indirect Bilirubin 0.2 Aspartate Amino Transf (AST/SGOT) 30 Alanine Aminotransferase (ALT/SGPT) 40 Alkaline Phosphatase 155 H Total Protein 5.2 L Albumin 2.9 L Globulin 2.30 Albumin/Globulin Ratio 1.26 Test 05/16/17 05:43 05/16/17 11:30 Lab Scanned Report BLOOD TRANSFUSION Bedside Glucose 159 Medications Medications Current Medications Aspirin (Aspirin) 325 mg DAILY NGT Last administered on 04/30/17 08:43; Admin Dose 325 MG; Start 04/12/17 at 09:00; Status Future Hold Metoprolol Tartrate (Lopressor) 5 mg Q4H PRN IV HR>110 Hold SBP<110 Last administered on 04/20/17 17:36; Admin Dose 5 MG; Start 04/11/17 at 13:30 Miscellaneous Information 1 ea NOTE XX ; Start 04/11/17 at 16:30 Glucose (Glutose) 15 gm Q15M PRN PO DECREASED GLUCOSE Last administered on 05/07 03:27; Admin Dose 15 GM; Start 04/11/17 at 16:30 Glucose (Glutose) 22.5 gm Q15M PRN PO DECREASED GLUCOSE; Start 04/11/17 at 16: 30 Dextrose (D50w Syringe) 25 ml Q15M PRN IV DECREASED GLUCOSE Last administered on 04/12/17 23:56; Admin Dose 25 ML; Start 04/11/17 at 16:30 Dextrose (D50w Syringe) 50 ml Q15M PRN IV DECREASED GLUCOSE; Start 04/11/17 at 16:30 Glucagon (Glucagen) 1 mg Q15M PRN IM DECREASED GLUCOSE; Start 04/11/17 at 16:30 Glucose (Glutose) 15 gm Q15M PRN BUCCAL DECREASED GLUCOSE; Start 04/11/17 at 16 :30 Metoclopramide HCl (Reglan) 10 mg Q6 IV Last administered on 05/16/17 06:39; Admin Dose 10 MG; Start 04/12/17 at 18:00 Insulin Aspart (Novolog Insulin Pen) NOVOLOG *MILD* ALGORI... Q6H SC Last administered on 05/16/17 11:34; Admin Dose 1 UNIT; Start 04/15/17 at 00:00 IV Flush (NS 10 ml) 10 ml PRN PRN IV FLUSH LINE; Start 04/15/17 at 13:00 Amiodarone HCl (Cordarone) 200 mg BID GTB Last administered on 05/15/17 22:11; Admin Dose 200 MG; Start 04/16/17 at 13:00 Heparin Sodium (Porcine) (Heparin (5000 Units/0.5 ml)) 5,000 unit BID SC Last administered on 04/30/17 21:03; Admin Dose 5,000 UNIT; Start 04/18/17 at 16:22; Status Future Hold Citalopram Hydrobromide (Celexa) 20 mg DAILY NGT Last administered on 05/16/17 09:09; Admin Dose 20 MG; Start 04/19/17 at 09:00 Hydralazine HCl (Apresoline) 20 mg Q6H PRN IV sbp ABOVE 160 Last administered on 05/14/17 19:01; Admin Dose 20 MG; Start 04/18/17 at 18:30 Chlorhexidine Gluconate (Peridex) 15 ml BID MT Last administered on 05/16/17 09 :11; Admin Dose 15 ML; Start 04/22/17 at 21:00 Vitamin A/Vitamin D (Vitamin A & D Oint) 1 applic TID TOP Last administered on 05/16/17 14:13; Admin Dose 1 APPLIC; Start 04/22/17 at 21:00 Vitamin A/Vitamin D (Vitamin A & D Oint) 1 applic TID PRN TOP DRYNESS Last administered on 04/22/17 15:29; Admin Dose 1 APPLIC; Start 04/22/17 at 15:00 Acetaminophen/ Hydrocodone Bitart ([place] (5/325)) 1 tab Q6H GTB Last administered on 05/16/17 10:01; Admin Dose 1 TAB; Start 04/22/17 at 21:30 Spironolactone (Aldactone) 25 mg DAILY NGT Last administered on 05/16/17 09:09 ; Admin Dose 25 MG; Start 04/25/17 at 19:00; Status Future hold Diltiazem HCl (Cardizem Iv) 5 mg Q1H PRN IV HEART RATE GREATER THAN 120 Last administered on 04/29/17 06:17; Admin Dose 5 MG; Start 04/29/17 at 05:00 Metronidazole 500 mg 500 mg Q8 GTB Last administered on 05/16/17 14:13; Admin Dose 500 MG; Start 04/30/17 at 22:00 Sodium Chloride 1,000 ml @ 0 mls/hr Q0M IV Last administered on 05/01/17 03: 00; Admin Dose 1,000 MLS/HR; Start 05/01/17 at 03:00 Sodium Chloride (NS) 1,000 ml @ 0 mls/hr Q0M IV Last administered on 04:00; Admin Dose 1,000 MLS/HR; Start 05/01/17 at 03:30 Pantoprazole 40 mg 40 mg BID@,18 IV Last administered on 05/16/17 06:39; Admin Dose 40 MG; Start 05/02/17 at 15:00 Diltiazem HCl (Cardizem-D5W 125 Mg/125 ml Drip) 125 ml @ 5 mls/hr TITRATE IV Last administered on 05/02/17 19:11; Admin Dose 5 MLS/HR; Start 05/02/17 at 19: 00 Valacyclovir HCl (Valtrex) 1,000 mg DAILY GTB Last administered on 05/16/17 09: 09; Admin Dose 1,000 MG; Start 05/06/17 at 09:00 Metoprolol Tartrate (Lopressor) 25 mg QID GTB Last administered on 05/16/17 14: 15; Admin Dose 25 MG; Start 05/07/17 at 09:00 Furosemide 40 mg 40 mg Q12 IV Last administered on 05/16/17 09:12; Admin Dose 40 MG; Start 05/08/17 at 09:00 Cefepime HCl (Maxipime 1gm/50 ml (Pmx)) 50 ml @ 100 mls/hr Q24H IVPB Last administered on 05/15/17 18:26; Admin Dose 100 MLS/HR; Start 05/08/17 at 18:00 Hydrocortisone (Solu-Cortef) 50 mg BID IV Last administered on 05/16/17 09:09; Admin Dose 50 MG; Start 05/10/17 at 21:00 Vitamin B Complex/ Vitamin C (Berocca) 1 cap DAILY PO Last administered on 09:09; Admin Dose 1 CAP; Start 05/13/17 at 09:00 Nystatin (Nystatin Susp) 5 ml QID PO Last administered on 05/16/17 14:13; Admin Dose 5 ML; Start 05/12/17 at 17:00 FRANCISCO BLACKWOOD MD May 16, 2017 14:53
[2017-05-16] MEDS: CEFEPIME 1GM/50 ML (PMX) 50 ML IVPB SCH (17:32)
[2017-05-17] VITALS (32 sets, daily range): BP systolic 82–153; BP diastolic 52–79; PULSE 62–77; RESP 16–18
[2017-05-17] MEDS: METOCLOPRAMIDE 10 MG INJ IV SCH ×4 (01:15→17:37)
[2017-05-17] MEDS: INSULIN ASPART [NOVOLOG] 3 ML PEN SC SCH ×4 (01:17→17:39)
[2017-05-17] MEDS: LEVALBUTEROL (HFA) 15 GM INHALER INH SCH ×4 (01:27→19:32)
[2017-05-17] MEDS: HYDROCODONE/APAP (5/325) TAB GTB SCH ×4 (03:30→21:07)
[2017-05-17] MEDS: PANTOPRAZOLE 40 MG INJ IV SCH ×2 (05:56→17:37)
[2017-05-17] MEDS: metroNIDAZOLE 500 MG TAB GTB SCH ×3 (05:57→21:06)
[2017-05-17] MEDS: LEVOTHYROXINE 75 MCG TAB GTB SCH (05:57)
[2017-05-17 06:40] LABS: ABNORMAL IP MESSAGE 1; BASOPHILS % 0.2 % (0.0-2.0); HEMATOCRIT 32.7 % (37.0-47.0); HEMOGLOBIN 11.2 g/dl (12.0-16.0); LYMPHOCYTES # 0.8 10^3/ul (0.8-2.9); LYMPHOCYTES % 5.7 % (15.0-51.0); MEAN CORPUSCULAR HEMOGLOBIN 30.3 pg (29.0-33.0); MEAN CORPUSCULAR HGB CONC 34.3 g/dl (32.0-37.0); MEAN CORPUSCULAR VOLUME 88.4 fl (82.0-101.0); MEAN PLATELET VOLUME 11.9 fl (7.4-10.4); MONOCYTE # 0.7 10^3/ul (0.3-0.9); MONOCYTES % 4.9 % (0.0-11.0); NEUTROPHIL # 11.4 10^3/ul (1.6-7.5); NEUTROPHILS % 83.7 % (39.0-77.0); NUCLEATED RED BLOOD CELLS% 0.3 /100WBC (0.0-0.0); PLATELET COUNT 326 10^3/UL (140-415); RED CELL DISTRIBUTION WIDTH 17.2 % (11.5-14.5); WHITE BLOOD COUNT 13.6 10^3/ul (4.8-10.8)
[2017-05-17 06:48] LABS: POSITIVE DIFF @See below
[2017-05-17] MEDS ORDERED: ALBUMIN HUMAN 25% 100 ML IV ONE (07:00)
[2017-05-17 07:14] LABS: CALCIUM 8.5 mg/dl (8.4-10.2); CREATININE 1.73 mg/dl (0.44-1.00); MAGNESIUM 2.2 mg/dl (1.7-2.5); PHOSPHORUS 3.1 mg/dl (2.5-4.9); POTASSIUM 3.4 mmol/L (3.5-5.1)
--- NOTE | 2017-05-17 09:09 | CONS ---
Date/Time of Note Date/Time of Note DATE: 05/17/17 TIME: 09:07 Assessment/Plan Assessment/Plan Problems: (1) Hypothyroidism Status: Chronic Comment: Will recheck TSH to make sure his dosage of levothyroxine were administering his meeting physiologic needs. This will not significantly alter prognosis for clinical course Qualifiers: Hypothyroidism type: acquired Qualified Code: E03.9 - Acquired hypothyroidism (2) Steroid dependence Status: Chronic Comment: Given her stability over time we can adjust the steroids to a slightly lower dose to avoid any possible complications of the higher dosages of steroids. Consultation Date/Type/Reason Admit Date/Time Apr 11, 2017 at 11:28 Initial Consult Date 04/14/17 Type of Consultation: Endocrinology Reason for Consultation Iatrogenic adrenal insufficiency; hypothyroidism; debilitated state Referring Provider: NINA MACIEL DO 24 HR Interval Summary Free Text/Dictation Patient still remains quite ill. Exam/Review of Systems Vital Signs Vitals Vital Signs Date Time Temp Pulse Resp B/P Pulse Ox O2 Delivery O2 Flow Rate FiO2 05/17/17 08:28 68 05/17/17 07:40 98.6 16 120/52 96 05/17/17 05:27 30 Intake and Output 05/16/17 05/16/17 05/17/17 15:00 23:00 07:00 Intake Total 300 ml 700 ml 1000 ml Output Total 1000 ml 550 ml 650 ml Balance -700 ml 150 ml 350 ml Exam As per primary team agreed Results Result Diagram: 05/17/17 0520 05/17/17 0520 Results 24 hrs Laboratory Tests Test 05/16/17 11:30 05/16/17 17:32 05/17/17 01:14 05/17/17 05:20 Bedside Glucose 159 162 184 White Blood Count 13.6 H Red Blood Count 3.70 L Hemoglobin 11.2 L Hematocrit 32.7 L Mean Corpuscular Volume 88.4 Mean Corpuscular Hemoglobin 30.3 Mean Corpuscular Hemoglobin Concent 34.3 Red Cell Distribution Width 17.2 H Platelet Count 326 Mean Platelet Volume 11.9 H Neutrophils % 83.7 H Lymphocytes % 5.7 L Monocytes % 4.9 Eosinophils % 0.0 Basophils % 0.2 Nucleated Red Blood Cells % 0.3 H Neutrophils # 11.4 H Lymphocytes # 0.8 Monocytes # 0.7 Eosinophils # 0.0 Basophils # 0.0 Nucleated Red Blood Cells # 0.0 Sodium Level 133 L Potassium Level 3.4 L Chloride Level 91 L Carbon Dioxide Level 31 Anion Gap 14 Blood Urea Nitrogen 101 H Creatinine 1.73 H Glucose Level 136 Calcium Level 8.5 Phosphorus Level 3.1 Magnesium Level 2.2 Test 05/17/17 05:58 Bedside Glucose 135 Medications Medications Current Medications Aspirin (Aspirin) 325 mg DAILY NGT Last administered on 04/30/17 08:43; Admin Dose 325 MG; Start 04/12/17 at 09:00; Status Future Hold Metoprolol Tartrate (Lopressor) 5 mg Q4H PRN IV HR>110 Hold SBP<110 Last administered on 04/20/17 17:36; Admin Dose 5 MG; Start 04/11/17 at 13:30 Miscellaneous Information 1 ea NOTE XX ; Start 04/11/17 at 16:30 Glucose (Glutose) 15 gm Q15M PRN PO DECREASED GLUCOSE Last administered on 05/07 03:27; Admin Dose 15 GM; Start 04/11/17 at 16:30 Glucose (Glutose) 22.5 gm Q15M PRN PO DECREASED GLUCOSE; Start 04/11/17 at 16: 30 Dextrose (D50w Syringe) 25 ml Q15M PRN IV DECREASED GLUCOSE Last administered on 04/12/17 23:56; Admin Dose 25 ML; Start 04/11/17 at 16:30 Dextrose (D50w Syringe) 50 ml Q15M PRN IV DECREASED GLUCOSE; Start 04/11/17 at 16:30 Glucagon (Glucagen) 1 mg Q15M PRN IM DECREASED GLUCOSE; Start 04/11/17 at 16:30 Glucose (Glutose) 15 gm Q15M PRN BUCCAL DECREASED GLUCOSE; Start 04/11/17 at 16 :30 Metoclopramide HCl (Reglan) 10 mg Q6 IV Last administered on 05/17/17 05:57; Admin Dose 10 MG; Start 04/12/17 at 18:00 Insulin Aspart (Novolog Insulin Pen) NOVOLOG *MILD* ALGORI... Q6H SC Last administered on 05/17/17 01:17; Admin Dose 2 UNIT; Start 04/15/17 at 00:00 IV Flush (NS 10 ml) 10 ml PRN PRN IV FLUSH LINE; Start 04/15/17 at 13:00 Amiodarone HCl (Cordarone) 200 mg BID GTB Last administered on 05/16/17 21:49; Admin Dose 200 MG; Start 04/16/17 at 13:00 Heparin Sodium (Porcine) (Heparin (5000 Units/0.5 ml)) 5,000 unit BID SC Last administered on 04/30/17 21:03; Admin Dose 5,000 UNIT; Start 04/18/17 at 16:22; Status Future Hold Citalopram Hydrobromide (Celexa) 20 mg DAILY NGT Last administered on 05/16/17 09:09; Admin Dose 20 MG; Start 04/19/17 at 09:00 Hydralazine HCl (Apresoline) 20 mg Q6H PRN IV sbp ABOVE 160 Last administered on 05/14/17 19:01; Admin Dose 20 MG; Start 04/18/17 at 18:30 Chlorhexidine Gluconate (Peridex) 15 ml BID MT Last administered on 05/16/17 21 :48; Admin Dose 15 ML; Start 04/22/17 at 21:00 Vitamin A/Vitamin D (Vitamin A & D Oint) 1 applic TID TOP Last administered on 05/16/17 21:48; Admin Dose 1 APPLIC; Start 04/22/17 at 21:00 Vitamin A/Vitamin D (Vitamin A & D Oint) 1 applic TID PRN TOP DRYNESS Last administered on 04/22/17 15:29; Admin Dose 1 APPLIC; Start 04/22/17 at 15:00 Acetaminophen/ Hydrocodone Bitart ([place] (5/325)) 1 tab Q6H GTB Last administered on 05/16/17 21:51; Admin Dose 1 TAB; Start 04/22/17 at 21:30 Spironolactone (Aldactone) 25 mg DAILY NGT Last administered on 05/16/17 09:09 ; Admin Dose 25 MG; Start 04/25/17 at 19:00; Status Future hold Diltiazem HCl (Cardizem Iv) 5 mg Q1H PRN IV HEART RATE GREATER THAN 120 Last administered on 04/29/17 06:17; Admin Dose 5 MG; Start 04/29/17 at 05:00 Metronidazole 500 mg 500 mg Q8 GTB Last administered on 05/17/17 05:57; Admin Dose 500 MG; Start 04/30/17 at 22:00 Sodium Chloride 1,000 ml @ 0 mls/hr Q0M IV Last administered on 05/01/17 03: 00; Admin Dose 1,000 MLS/HR; Start 05/01/17 at 03:00 Sodium Chloride (NS) 1,000 ml @ 0 mls/hr Q0M IV Last administered on 04:00; Admin Dose 1,000 MLS/HR; Start 05/01/17 at 03:30 Pantoprazole 40 mg 40 mg BID@06,18 IV Last administered on 05/17/17 05:56; Admin Dose 40 MG; Start 05/02/17 at 15:00 Diltiazem HCl (Cardizem-D5W 125 Mg/125 ml Drip) 125 ml @ 5 mls/hr TITRATE IV Last administered on 05/02/17 19:11; Admin Dose 5 MLS/HR; Start 05/02/17 at 19: 00 Valacyclovir HCl (Valtrex) 1,000 mg DAILY GTB Last administered on 05/16/17 09: 09; Admin Dose 1,000 MG; Start 05/06/17 at 09:00 Metoprolol Tartrate (Lopressor) 25 mg QID GTB Last administered on 05/16/17 21: 49; Admin Dose 25 MG; Start 05/07/17 at 09:00 Furosemide 40 mg 40 mg Q12 IV Last administered on 05/16/17 21:49; Admin Dose 40 MG; Start 05/08/17 at 09:00 Cefepime HCl (Maxipime 1gm/50 ml (Pmx)) 50 ml @ 100 mls/hr Q24H IVPB Last administered on 05/16/17 17:32; Admin Dose 100 MLS/HR; Start 05/08/17 at 18:00 Hydrocortisone (Solu-Cortef) 50 mg BID IV Last administered on 05/16/17 21:48; Admin Dose 50 MG; Start 05/10/17 at 21:00 Vitamin B Complex/ Vitamin C (Berocca) 1 cap DAILY PO Last administered on 09:09; Admin Dose 1 CAP; Start 05/13/17 at 09:00 Nystatin (Nystatin Susp) 5 ml QID PO Last administered on 05/16/17t 21:48; Admin Dose 5 ML; Start 05/12/17 at 17:00 IZZY TYLER MD May 17, 2017 09:09
[2017-05-17] MEDS: COLISTIMETHATE (25 MG/ML INHAL SYG) NEB SCH ×2 (09:20→19:33)
[2017-05-17] MEDS: AMIODARONE 200 MG TAB GTB SCH ×2 (09:58→21:07)
[2017-05-17] MEDS: SPIRONOLACTONE 25 MG TAB NGT SCH (09:58)
[2017-05-17] MEDS: CITALOPRAM 20 MG TAB NGT SCH (09:59)
[2017-05-17] MEDS: FUROSEMIDE 40 MG INJ IV SCH ×2 (09:59→21:07)
[2017-05-17] MEDS: METOPROLOL 25 MG TAB GTB SCH ×4 (09:59→21:07)
[2017-05-17] MEDS: VITAMIN B COMPLEX/VIT C CAP PO SCH (09:59)
[2017-05-17] MEDS: VALACYCLOVIR 500 MG TAB GTB SCH (09:59)
[2017-05-17] MEDS: VITAMIN A & D 5 GM OINT PACKET TOP SCH ×3 (10:00→21:06)
[2017-05-17] MEDS: CHLORHEXIDINE GLUCONATE 15 ML UD CUP MT SCH ×2 (10:01→21:05)
[2017-05-17] MEDS: NYSTATIN SUSP 5 ML CUP PO SCH ×4 (10:01→21:05)
[2017-05-17] MEDS: HYDROCORTISONE 100 MG INJ IV SCH ×3 (10:10→21:06)
--- NOTE | 2017-05-17 13:01 | CONS ---
Date/Time of Note Date/Time of Note DATE: 05/17/17 TIME: 13:00 Assessment/Plan Assessment/Plan Chief Complaint/Hosp Course 1. Ventilatory-dependant respiratory failure. Vent settings reviewed. ABGs reviewed. Continue to monitor. Follow up with Pulmonary. 2. History of thyroid cancer with tracheomalacia. The patient is status post ENT evaluation. Appreciate recommendations. Continue to monitor. 3. Nonoliguric acute kidney injury on top of chronic kidney disease. - Etiology of acute kidney injury is likely atn. -The patient is currently dialysis dependent. Plan for hemodialysis today for 3 hours with 3K bath, calcium 2.5, -ultrafiltration as tolerated. Monitor for signs of recovery. 4. Volume overload secondary to acute kidney injury, congestive heart failure. - Continue ultrafiltration dialysis. 5. Sepsis, status post shock secondary to aspiration pneumonia, fungemia. -Continue antibiotic therapy, antifungal therapy. 6. Adrenal insufficiency. Continue current steroid regimen. 7. Acute encephalopathy. Etiology is toxic metabolic. Continue to monitor. 8. Hypothyroidism. Continue Synthroid. 9. Anemia. Continue to monitor H and H levels. 10. Mineral bone disorder. Continue to monitor calcium and phosphorus levels. 11. History of congestive heart failure. 12. Leukocytosis multifactorial secondary to steroids but improving. 13. Left upper extremity deep vein thrombosis. Continue to hold antiplatelets. Due to recent gastrointestinal bleed. 14. Dysphagia. Continue tube feeding. 15. . Continue current medical management. 16. Status post upper gastrointestinal bleed. 17. Gastrointestinal and deep venous thrombosis prophylaxis. Continue proton pump inhibitor and sequential leg squeezes. Problems: Consultation Date/Type/Reason Admit Date/Time Apr 11, 2017 at 11:28 Initial Consult Date 04/14/17 Type of Consultation: nephrology Referring Provider: NINA MACIEL DO 24 HR Interval Summary Free Text/Dictation pt. seen and examined post hd apprec all c/s. Exam/Review of Systems Vital Signs Vitals Vital Signs Date Time Temp Pulse Resp B/P Pulse Ox O2 Delivery O2 Flow Rate FiO2 05/17/17 11:54 98.0 74 16 119/79 100 05/17/17 09:21 30 Intake and Output 05/16/17 05/16/17 05/17/17 15:00 23:00 07:00 Intake Total 300 ml 700 ml 1000 ml Output Total 1000 ml 550 ml 650 ml Balance -700 ml 150 ml 350 ml Exam Constitutional: frail Psych: confusion Eyes: EOMI, PERRL, nl conjunctiva, nl lids, nl sclera ENMT: nl external ears & nose, nl lips & teeth, nl nasal mucosa & septum Neck: non-tender, supple Respiratory: diminished breath sounds Cardiovascular: nl pulses, regular rate and rhythm Gastrointestinal: nl liver, spleen, non-tender, soft Extremities: normal pulses Neurological: FILM NUMBERER II-XII intact, nl mental status, nl speech, nl strength Results Result Diagram: 05/17/1751905/17/17519 Results 24 hrs Laboratory Tests Test 05/16/17 17:32 05/17/17 01:14 05/17/17 05:20 05/17/17 05:58 Bedside Glucose 162 184 135 White Blood Count 13.6 H Red Blood Count 3.70 L Hemoglobin 11.2 L Hematocrit 32.7 L Mean Corpuscular Volume 88.4 Mean Corpuscular Hemoglobin 30.3 Mean Corpuscular Hemoglobin Concent 34.3 Red Cell Distribution Width 17.2 H Platelet Count 326 Mean Platelet Volume 11.9 H Neutrophils % 83.7 H Lymphocytes % 5.7 L Monocytes % 4.9 Eosinophils % 0.0 Basophils % 0.2 Nucleated Red Blood Cells % 0.3 H Neutrophils # 11.4 H Lymphocytes # 0.8 Monocytes # 0.7 Eosinophils # 0.0 Basophils # 0.0 Nucleated Red Blood Cells # 0.0 Sodium Level 133 L Potassium Level 3.4 L Chloride Level 91 L Carbon Dioxide Level 31 Anion Gap 14 Blood Urea Nitrogen 101 H Creatinine 1.73 H Glucose Level 136 Calcium Level 8.5 Phosphorus Level 3.1 Magnesium Level 2.2 Thyroid Stimulating Hormone (TSH) 19.000 H Test 05/17/17 11:40 Bedside Glucose 182 Medications Medications Current Medications Aspirin (Aspirin) 325 mg DAILY NGT Last administered on 04/30/17 08:43; Admin Dose 325 MG; Start 04/12/17 at 09:00; Status Future Hold Metoprolol Tartrate (Lopressor) 5 mg Q4H PRN IV HR>110 Hold SBP<110 Last administered on 04/20/17 17:36; Admin Dose 5 MG; Start 04/11/17 at 13:30 Miscellaneous Information 1 ea NOTE XX ; Start 04/11/17 at 16:30 Glucose (Glutose) 15 gm Q15M PRN PO DECREASED GLUCOSE Last administered on 05/07 03:27; Admin Dose 15 GM; Start 04/11/17 at 16:30 Glucose (Glutose) 22.5 gm Q15M PRN PO DECREASED GLUCOSE; Start 04/11/17 at 16: 30 Dextrose (D50w Syringe) 25 ml Q15M PRN IV DECREASED GLUCOSE Last administered on 04/12/17 23:56; Admin Dose 25 ML; Start 04/11/17 at 16:30 Dextrose (D50w Syringe) 50 ml Q15M PRN IV DECREASED GLUCOSE; Start 04/11/17 at 16:30 Glucagon (Glucagen) 1 mg Q15M PRN IM DECREASED GLUCOSE; Start 04/11/17 at 16:30 Glucose (Glutose) 15 gm Q15M PRN BUCCAL DECREASED GLUCOSE; Start 04/11/17 at 16 :30 Metoclopramide HCl (Reglan) 10 mg Q6 IV Last administered on 05/17/17 11:46; Admin Dose 10 MG; Start 04/12/17 at 18:00 Insulin Aspart (Novolog Insulin Pen) NOVOLOG *MILD* ALGORI... Q6H SC Last administered on 05/17/17 11:44; Admin Dose 2 UNIT; Start 04/15/17 at 00:00 IV Flush (NS 10 ml) 10 ml PRN PRN IV FLUSH LINE; Start 04/15/17 at 13:00 Amiodarone HCl (Cordarone) 200 mg BID GTB Last administered on 05/17/17 09:58; Admin Dose 200 MG; Start 04/16/17 at 13:00 Heparin Sodium (Porcine) (Heparin (5000 Units/0.5 ml)) 5,000 unit BID SC Last administered on 04/30/17 21:03; Admin Dose 5,000 UNIT; Start 04/18/17 at 16:22; Status Future Hold Citalopram Hydrobromide (Celexa) 20 mg DAILY NGT Last administered on 05/17/17 09:59; Admin Dose 20 MG; Start 04/19/17 at 09:00 Hydralazine HCl (Apresoline) 20 mg Q6H PRN IV sbp ABOVE 160 Last administered on 05/14/17 19:01; Admin Dose 20 MG; Start 04/18/17 at 18:30 Chlorhexidine Gluconate (Peridex) 15 ml BID MT Last administered on 05/17/17 10 :01; Admin Dose 15 ML; Start 04/22/17 at 21:00 Vitamin A/Vitamin D (Vitamin A & D Oint) 1 applic TID TOP Last administered on 05/17/17 10:00; Admin Dose 1 APPLIC; Start 04/22/17 at 21:00 Vitamin A/Vitamin D (Vitamin A & D Oint) 1 applic TID PRN TOP DRYNESS Last administered on 04/22/17 15:29; Admin Dose 1 APPLIC; Start 04/22/17 at 15:00 Acetaminophen/ Hydrocodone Bitart ([place] (5/325)) 1 tab Q6H GTB Last administered on 05/17/17 09:58; Admin Dose 1 TAB; Start 04/22/17 at 21:30 Spironolactone (Aldactone) 25 mg DAILY NGT Last administered on 05/17/17 09:58 ; Admin Dose 25 MG; Start 04/25/17 at 19:00; Status Future hold Diltiazem HCl (Cardizem Iv) 5 mg Q1H PRN IV HEART RATE GREATER THAN 120 Last administered on 04/29/17 06:17; Admin Dose 5 MG; Start 04/29/17 at 05:00 Metronidazole 500 mg 500 mg Q8 GTB Last administered on 05/17/17 05:57; Admin Dose 500 MG; Start 04/30/17 at 22:00 Sodium Chloride 1,000 ml @ 0 mls/hr Q0M IV Last administered on 05/01/17 03: 00; Admin Dose 1,000 MLS/HR; Start 05/01/17 at 03:00 Sodium Chloride (NS) 1,000 ml @ 0 mls/hr Q0M IV Last administered on 04:00; Admin Dose 1,000 MLS/HR; Start 05/01/17 at 03:30 Pantoprazole 40 mg 40 mg BID@06,18 IV Last administered on 05/17/17 05:56; Admin Dose 40 MG; Start 05/02/17 at 15:00 Diltiazem HCl (Cardizem-D5W 125 Mg/125 ml Drip) 125 ml @ 5 mls/hr TITRATE IV Last administered on 05/02/17 19:11; Admin Dose 5 MLS/HR; Start 05/02/17 at 19: 00 Valacyclovir HCl (Valtrex) 1,000 mg DAILY GTB Last administered on 05/17/17 09: 59; Admin Dose 1,000 MG; Start 05/06/17 at 09:00 Metoprolol Tartrate (Lopressor) 25 mg QID GTB Last administered on 05/17/17 09: 59; Admin Dose 25 MG; Start 05/07/17 at 09:00 Furosemide 40 mg 40 mg Q12 IV Last administered on 05/17/17 09:59; Admin Dose 40 MG; Start 05/08/17 at 09:00 Cefepime HCl (Maxipime 1gm/50 ml (Pmx)) 50 ml @ 100 mls/hr Q24H IVPB Last administered on 05/16/17 17:32; Admin Dose 100 MLS/HR; Start 05/08/17 at 18:00 Vitamin B Complex/ Vitamin C (Berocca) 1 cap DAILY PO Last administered on 09:59; Admin Dose 1 CAP; Start 05/13/17 at 09:00 Nystatin (Nystatin Susp) 5 ml QID PO Last administered on 05/17/17 10:01; Admin Dose 5 ML; Start 05/12/17 at 17:00 Hydrocortisone (Solu-Cortef) 20 mg TID IV Last administered on 05/17/17 10:10; Admin Dose 20 MG; Start 05/17/17 at 09:30 TAVO WARD MD May 17, 2017 13:01
--- NOTE | 2017-05-17 16:21 | CONS ---
Date/Time of Note Date/Time of Note DATE: 05/17/17 TIME: 16:19 Consult Date/Type/Reason Admit Date/Time Apr 11, 2017 at 11:28 Initial Consult Date 04/12/17 Type of Consultation: pulm Ordering Provider: NINA MACIEL DO Subjective on vent; no events. Objective Vital Signs Date Time Temp Pulse Resp B/P Pulse Ox O2 Delivery O2 Flow Rate FiO2 05/17/17 15:23 98.1 73 18 129/74 96 05/17/17 15:06 30 Intake and Output 05/16/17 05/16/17 05/17/17 15:00 23:00 07:00 Intake Total 300 ml 700 ml 1000 ml Output Total 1000 ml 550 ml 650 ml Balance -700 ml 150 ml 350 ml Exam HEENT: Neck supple; no JVD; no LAD; trach site clean CVS: RRR, S1 and S2 CHEST: Clear ABD: Soft, NT, + BS EXT: No c/c + edema Results/Medications Result Diagram: 05/17/17 0520 05/17/17 0520 Results 24 hrs Laboratory Tests Test 05/16/17 17:32 05/17/17 01:14 05/17/17 05:20 05/17/17 05:58 Bedside Glucose 162 184 135 White Blood Count 13.6 H Red Blood Count 3.70 L Hemoglobin 11.2 L Hematocrit 32.7 L Mean Corpuscular Volume 88.4 Mean Corpuscular Hemoglobin 30.3 Mean Corpuscular Hemoglobin Concent 34.3 Red Cell Distribution Width 17.2 H Platelet Count 326 Mean Platelet Volume 11.9 H Neutrophils % 83.7 H Lymphocytes % 5.7 L Monocytes % 4.9 Eosinophils % 0.0 Basophils % 0.2 Nucleated Red Blood Cells % 0.3 H Neutrophils # 11.4 H Lymphocytes # 0.8 Monocytes # 0.7 Eosinophils # 0.0 Basophils # 0.0 Nucleated Red Blood Cells # 0.0 Sodium Level 133 L Potassium Level 3.4 L Chloride Level 91 L Carbon Dioxide Level 31 Anion Gap 14 Blood Urea Nitrogen 101 H Creatinine 1.73 H Glucose Level 136 Calcium Level 8.5 Phosphorus Level 3.1 Magnesium Level 2.2 Thyroid Stimulating Hormone (TSH) 19.000 H Test 05/17/17 11:40 Bedside Glucose 182 Medications Current Medications Aspirin (Aspirin) 325 mg DAILY NGT Last administered on 04/30/17 08:43; Admin Dose 325 MG; Start 04/12/17 at 09:00; Status Future Hold Metoprolol Tartrate (Lopressor) 5 mg Q4H PRN IV HR>110 Hold SBP<110 Last administered on 04/20/17 17:36; Admin Dose 5 MG; Start 04/11/17 at 13:30 Miscellaneous Information 1 ea NOTE XX ; Start 04/11/17 at 16:30 Glucose (Glutose) 15 gm Q15M PRN PO DECREASED GLUCOSE Last administered on 05/07 03:27; Admin Dose 15 GM; Start 04/11/17 at 16:30 Glucose (Glutose) 22.5 gm Q15M PRN PO DECREASED GLUCOSE; Start 04/11/17 at 16: 30 Dextrose (D50w Syringe) 25 ml Q15M PRN IV DECREASED GLUCOSE Last administered on 04/12/17 23:56; Admin Dose 25 ML; Start 04/11/17 at 16:30 Dextrose (D50w Syringe) 50 ml Q15M PRN IV DECREASED GLUCOSE; Start 04/11/17 at 16:30 Glucagon (Glucagen) 1 mg Q15M PRN IM DECREASED GLUCOSE; Start 04/11/17 at 16:30 Glucose (Glutose) 15 gm Q15M PRN BUCCAL DECREASED GLUCOSE; Start 04/11/17 at 16 :30 Metoclopramide HCl (Reglan) 10 mg Q6 IV Last administered on 05/17/17 11:46; Admin Dose 10 MG; Start 04/12/17 at 18:00 Insulin Aspart (Novolog Insulin Pen) NOVOLOG *MILD* ALGORI... Q6H SC Last administered on 05/17/17 11:44; Admin Dose 2 UNIT; Start 04/15/17 at 00:00 IV Flush (NS 10 ml) 10 ml PRN PRN IV FLUSH LINE; Start 04/15/17 at 13:00 Amiodarone HCl (Cordarone) 200 mg BID GTB Last administered on 05/17/17 09:58; Admin Dose 200 MG; Start 04/16/17 at 13:00 Heparin Sodium (Porcine) (Heparin (5000 Units/0.5 ml)) 5,000 unit BID SC Last administered on 04/30/17 21:03; Admin Dose 5,000 UNIT; Start 04/18/17 at 16:22; Status Future Hold Citalopram Hydrobromide (Celexa) 20 mg DAILY NGT Last administered on 05/17/17 09:59; Admin Dose 20 MG; Start 04/19/17 at 09:00 Hydralazine HCl (Apresoline) 20 mg Q6H PRN IV sbp ABOVE 160 Last administered on 05/14/17 19:01; Admin Dose 20 MG; Start 04/18/17 at 18:30 Chlorhexidine Gluconate (Peridex) 15 ml BID MT Last administered on 05/17/17 10 :01; Admin Dose 15 ML; Start 04/22/17 at 21:00 Vitamin A/Vitamin D (Vitamin A & D Oint) 1 applic TID TOP Last administered on 05/17/17 14:08; Admin Dose 1 APPLIC; Start 04/22/17 at 21:00 Vitamin A/Vitamin D (Vitamin A & D Oint) 1 applic TID PRN TOP DRYNESS Last administered on 04/22/17 15:29; Admin Dose 1 APPLIC; Start 04/22/17 at 15:00 Acetaminophen/ Hydrocodone Bitart ([place] (5/325)) 1 tab Q6H GTB Last administered on 05/17/17 15:29; Admin Dose 1 TAB; Start 04/22/17 at 21:30 Spironolactone (Aldactone) 25 mg DAILY NGT Last administered on 05/17/17 09:58 ; Admin Dose 25 MG; Start 04/25/17 at 19:00; Status Future hold Diltiazem HCl (Cardizem Iv) 5 mg Q1H PRN IV HEART RATE GREATER THAN 120 Last administered on 04/29/17 06:17; Admin Dose 5 MG; Start 04/29/17 at 05:00 Metronidazole 500 mg 500 mg Q8 GTB Last administered on 05/17/17 14:08; Admin Dose 500 MG; Start 04/30/17 at 22:00 Sodium Chloride 1,000 ml @ 0 mls/hr Q0M IV Last administered on 05/01/17 03: 00; Admin Dose 1,000 MLS/HR; Start 05/01/17 at 03:00 Sodium Chloride (NS) 1,000 ml @ 0 mls/hr Q0M IV Last administered on 04:00; Admin Dose 1,000 MLS/HR; Start 05/01/17 at 03:30 Pantoprazole 40 mg 40 mg BID@06,18 IV Last administered on 05/17/17 05:56; Admin Dose 40 MG; Start 05/02/17 at 15:00 Diltiazem HCl (Cardizem-D5W 125 Mg/125 ml Drip) 125 ml @ 5 mls/hr TITRATE IV Last administered on 05/02/17 19:11; Admin Dose 5 MLS/HR; Start 05/02/17 at 19: 00 Valacyclovir HCl (Valtrex) 1,000 mg DAILY GTB Last administered on 05/17/17 09: 59; Admin Dose 1,000 MG; Start 05/06/17 at 09:00 Metoprolol Tartrate (Lopressor) 25 mg QID GTB Last administered on 05/17/17 14: 08; Admin Dose 25 MG; Start 05/07/17 at 09:00 Furosemide 40 mg 40 mg Q12 IV Last administered on 05/17/17 09:59; Admin Dose 40 MG; Start 05/08/17 at 09:00 Cefepime HCl (Maxipime 1gm/50 ml (Pmx)) 50 ml @ 100 mls/hr Q24H IVPB Last administered on 05/16/17 17:32; Admin Dose 100 MLS/HR; Start 05/08/17 at 18:00 Vitamin B Complex/ Vitamin C (Berocca) 1 cap DAILY PO Last administered on 09:59; Admin Dose 1 CAP; Start 05/13/17 at 09:00 Nystatin (Nystatin Susp) 5 ml QID PO Last administered on 05/17/17 14:07; Admin Dose 5 ML; Start 05/12/17 at 17:00 Hydrocortisone (Solu-Cortef) 20 mg TID IV Last administered on 05/17/17 14:07; Admin Dose 20 MG; Start 05/17/17 at 09:30 Assessment/Plan Chief Complaint/Hosp Course Briefly, this is a 66-year-old female with a history of chronic resp failure s/ p prolonged hospitalization and trach, recently decannulated ~ 3 weeks ago, dysphagia s/p PEG, admitted 2 days prior from SNF with severe septic shock requiring pressors and respiratory failure requiring mech ventilation. Problems: Additional Assessment/Plan IMP: 1. VDRF 3. s/p Hypercapnic Respiratory Failure--likely due to critical illness myopathy/ neuropathy 4. s/p septic shock 5. Demand Ischemia 6. Cholecystitis 7. Encephalopathy toxic metabolic 8. Leukocytosis RECS: 1. Vent support 2. BDs 3. TFs MAUREEN COREA MD May 17, 2017 16:21
--- NOTE | 2017-05-17 17:09 | PN ---
Date/Time of Note Date/Time of Note DATE: 05/17/17 TIME: 17:09 Assessment/Plan VTE Prophylaxis VTE Prophylaxis Intervention: other Lines/Catheters IV Catheter Type (from Nrs): PICC Line Central line still needed: Yes Urinary Cath still in place: Yes Reason Cath still needed: other (indicate) Assessment/Plan Chief Complaint/Hosp Course 1. acute on chronic hypoxemic respiratory failure: 2. NSTEMI: due to demand ischemia. 3. CHF/ fluid overload: due to diastolic heart failure 4. moderate 5. Arrhythmia and P afib, frequent PVC: currently in NSR. 6. ANEMIA: s/p multiple transfusion 7. s/p pneumonia, . 8. s/p sepsis and shock: BP is stable now. 9. Anasarca 10. s/p cardiopulm arrest due to resp failure 11. renal failure on HD now. 12. coagulopathy Rec: cont resp care as per PULM Team. correct lytes prn. keep K > 4, Mg > 2 CONT betablocker as tolerated. . cont thyroid supplement . cont tele monitoring HD/ ultrafiltration as per renal. transfuse prn THANK YOU. Problems: Subjective 24 Hr Interval Summary Free Text/Dictation CARDIOLOGY FOLLOW UP NOTE: D/W staff and rhythm was reviewed. pt remains in NSR. no afib overnight no chest pain or pressure or palpitations. pt still s/p trach on vent pt with anemia and s/p transfusion again on 05/14/17 s/p HD Objective: General: s/p trach on vent HEENT: NC/AT. . oropharynx with multiple lesions. . NECK: NO JVD. no stridor. s/p trach on vent CV: RRR. systolic ejection murmur; no gallop or rubs. PULM: + diffuse rhonchi. no wheezes. GI: SOFT, NT, ND, no rebound or guarding s/p PEG Extremity: 1-2+ B/L LE edema. no clubbing. neuro: Drowsy. sleepy. Psych: calm rectal: deferred Derm: multiple echymosis : S/P mims catheter in place. Exam/Review of Systems Vital Signs Vitals Vital Signs Date Time Temp Pulse Resp B/P Pulse Ox O2 Delivery O2 Flow Rate FiO2 05/17/17 16:53 75 16 100 30 05/17/17 15:23 98.1 129/74 Intake and Output 05/16/17 05/16/17 05/17/17 15:00 23:00 07:00 Intake Total 300 ml 700 ml 1000 ml Output Total 1000 ml 550 ml 650 ml Balance -700 ml 150 ml 350 ml Results Result Diagram: 05/17/17 0520 05/17/17 0520 Results 24 hrs Laboratory Tests Test 05/16/17 17:32 05/17/17 01:14 05/17/17 05:20 05/17/17 05:58 Bedside Glucose 162 184 135 White Blood Count 13.6 H Red Blood Count 3.70 L Hemoglobin 11.2 L Hematocrit 32.7 L Mean Corpuscular Volume 88.4 Mean Corpuscular Hemoglobin 30.3 Mean Corpuscular Hemoglobin Concent 34.3 Red Cell Distribution Width 17.2 H Platelet Count 326 Mean Platelet Volume 11.9 H Neutrophils % 83.7 H Lymphocytes % 5.7 L Monocytes % 4.9 Eosinophils % 0.0 Basophils % 0.2 Nucleated Red Blood Cells % 0.3 H Neutrophils # 11.4 H Lymphocytes # 0.8 Monocytes # 0.7 Eosinophils # 0.0 Basophils # 0.0 Nucleated Red Blood Cells # 0.0 Sodium Level 133 L Potassium Level 3.4 L Chloride Level 91 L Carbon Dioxide Level 31 Anion Gap 14 Blood Urea Nitrogen 101 H Creatinine 1.73 H Glucose Level 136 Calcium Level 8.5 Phosphorus Level 3.1 Magnesium Level 2.2 Thyroid Stimulating Hormone (TSH) 19.000 H Test 05/17/17 11:40 Bedside Glucose 182 Medications Medications Current Medications Aspirin (Aspirin) 325 mg DAILY NGT Last administered on 04/30/17 08:43; Admin Dose 325 MG; Start 04/12/17 at 09:00; Status Future Hold Metoprolol Tartrate (Lopressor) 5 mg Q4H PRN IV HR>110 Hold SBP<110 Last administered on 04/20/17 17:36; Admin Dose 5 MG; Start 04/11/17 at 13:30 Miscellaneous Information 1 ea NOTE XX ; Start 04/11/17 at 16:30 Glucose (Glutose) 15 gm Q15M PRN PO DECREASED GLUCOSE Last administered on 05/07 03:27; Admin Dose 15 GM; Start 04/11/17 at 16:30 Glucose (Glutose) 22.5 gm Q15M PRN PO DECREASED GLUCOSE; Start 04/11/17 at 16: 30 Dextrose (D50w Syringe) 25 ml Q15M PRN IV DECREASED GLUCOSE Last administered on 04/12/17 23:56; Admin Dose 25 ML; Start 04/11/17 at 16:30 Dextrose (D50w Syringe) 50 ml Q15M PRN IV DECREASED GLUCOSE; Start 04/11/17 at 16:30 Glucagon (Glucagen) 1 mg Q15M PRN IM DECREASED GLUCOSE; Start 04/11/17 at 16:30 Glucose (Glutose) 15 gm Q15M PRN BUCCAL DECREASED GLUCOSE; Start 04/11/17 at 16 :30 Metoclopramide HCl (Reglan) 10 mg Q6 IV Last administered on 05/17/17 11:46; Admin Dose 10 MG; Start 04/12/17 at 18:00 Insulin Aspart (Novolog Insulin Pen) NOVOLOG *MILD* ALGORI... Q6H SC Last administered on 05/17/17 11:44; Admin Dose 2 UNIT; Start 04/15/17 at 00:00 IV Flush (NS 10 ml) 10 ml PRN PRN IV FLUSH LINE; Start 04/15/17 at 13:00 Amiodarone HCl (Cordarone) 200 mg BID GTB Last administered on 05/17/17 09:58; Admin Dose 200 MG; Start 04/16/17 at 13:00 Heparin Sodium (Porcine) (Heparin (5000 Units/0.5 ml)) 5,000 unit BID SC Last administered on 04/30/17 21:03; Admin Dose 5,000 UNIT; Start 04/18/17 at 16:22; Status Future Hold Citalopram Hydrobromide (Celexa) 20 mg DAILY NGT Last administered on 05/17/17 09:59; Admin Dose 20 MG; Start 04/19/17 at 09:00 Hydralazine HCl (Apresoline) 20 mg Q6H PRN IV sbp ABOVE 160 Last administered on 05/14/17 19:01; Admin Dose 20 MG; Start 04/18/17 at 18:30 Chlorhexidine Gluconate (Peridex) 15 ml BID MT Last administered on 05/17/17 10 :01; Admin Dose 15 ML; Start 04/22/17 at 21:00 Vitamin A/Vitamin D (Vitamin A & D Oint) 1 applic TID TOP Last administered on 05/17/17 14:08; Admin Dose 1 APPLIC; Start 04/22/17 at 21:00 Vitamin A/Vitamin D (Vitamin A & D Oint) 1 applic TID PRN TOP DRYNESS Last administered on 04/22/17 15:29; Admin Dose 1 APPLIC; Start 04/22/17 at 15:00 Acetaminophen/ Hydrocodone Bitart ([place] (5/325)) 1 tab Q6H GTB Last administered on 05/17/17 15:29; Admin Dose 1 TAB; Start 04/22/17 at 21:30 Spironolactone (Aldactone) 25 mg DAILY NGT Last administered on 05/17/17 09:58 ; Admin Dose 25 MG; Start 04/25/17 at 19:00; Status Future hold Diltiazem HCl (Cardizem Iv) 5 mg Q1H PRN IV HEART RATE GREATER THAN 120 Last administered on 04/29/17 06:17; Admin Dose 5 MG; Start 04/29/17 at 05:00 Metronidazole 500 mg 500 mg Q8 GTB Last administered on 05/17/17 14:08; Admin Dose 500 MG; Start 04/30/17 at 22:00 Sodium Chloride 1,000 ml @ 0 mls/hr Q0M IV Last administered on 05/01/17 03: 00; Admin Dose 1,000 MLS/HR; Start 05/01/17 at 03:00 Sodium Chloride (NS) 1,000 ml @ 0 mls/hr Q0M IV Last administered on 04:00; Admin Dose 1,000 MLS/HR; Start 05/01/17 at 03:30 Pantoprazole 40 mg 40 mg BID@06,18 IV Last administered on 05/17/17 05:56; Admin Dose 40 MG; Start 05/02/17 at 15:00 Diltiazem HCl (Cardizem-D5W 125 Mg/125 ml Drip) 125 ml @ 5 mls/hr TITRATE IV Last administered on 05/02/17 19:11; Admin Dose 5 MLS/HR; Start 05/02/17 at 19: 00 Valacyclovir HCl (Valtrex) 1,000 mg DAILY GTB Last administered on 05/17/17 09: 59; Admin Dose 1,000 MG; Start 05/06/17 at 09:00 Metoprolol Tartrate (Lopressor) 25 mg QID GTB Last administered on 05/17/17 14: 08; Admin Dose 25 MG; Start 05/07/17 at 09:00 Furosemide 40 mg 40 mg Q12 IV Last administered on 05/17/17 09:59; Admin Dose 40 MG; Start 05/08/17 at 09:00 Cefepime HCl (Maxipime 1gm/50 ml (Pmx)) 50 ml @ 100 mls/hr Q24H IVPB Last administered on 05/16/17 17:32; Admin Dose 100 MLS/HR; Start 05/08/17 at 18:00 Vitamin B Complex/ Vitamin C (Berocca) 1 cap DAILY PO Last administered on 09:59; Admin Dose 1 CAP; Start 05/13/17 at 09:00 Nystatin (Nystatin Susp) 5 ml QID PO Last administered on 05/17/17 14:07; Admin Dose 5 ML; Start 05/12/17 at 17:00 Hydrocortisone (Solu-Cortef) 20 mg TID IV Last administered on 05/17/17 14:07; Admin Dose 20 MG; Start 05/17/17 at 09:30 FRANCISCO BLACKWOOD MD May 17, 2017 17:09
[2017-05-17] MEDS: CEFEPIME 1GM/50 ML (PMX) 50 ML IVPB SCH (17:38)
--- NOTE | 2017-05-17 18:55 | CONS ---
Date/Time of Note Date/Time of Note DATE: 05/17/17 TIME: 18:53 Assessment/Plan Assessment/Plan Chief Complaint/Hosp Course ID PROGRESS NOTE CURRENT ABX=> Flagyl, Valtrex, + Cefepime #8 + Colistin INH #7 * She is completing a 10 day course of ABX for Sputum 05/06/17 (+)PSAR ASP PNA , s/p sepsis in ICU Cancidas -> DC 05/10 Merrem -> DC'd 05/08 Merrem #14 total -> DC'd 04/26=> Restarted 24H INTERVAL SUMMARY/HOSPITAL COURSE * Doing well, no complaints, lip lesions better, facial edema improved * WBC 13.6, No fevers PHYSICAL EXAMINATION: GENERAL: 66 yo F, stable on the Vent HEENT: Atraumatic, (+)Lip crusting lesions healing NECK: (+)Trach in place secure to VENT CHEST: Rise symmetrical w/coarse BS, scattered rales/rhonchi ABDOMEN: Soft, peg EXTREMITIES: Warm, moves extremities ID ASSESSMENT: 66 yo F w/PMHx tongue cancer, chronic trach re-admit [facility] from SNF with: 1. s/p Acute severe sepsis/shock on admission w/(+)fever, tachycardia, lactic acidosis, leukocytosis, (+)troponin leak = RESOLVING * Leukocytosis persisting -> IV Steroids onboard * Fungemia => repeat BCx negative 2. Anasarca w/increased facial edema/bilateral lip edema w/resolving HSV lip lesions resolving * -- facial edema is worse due to patient preference while sitting up to lean her head forward w/neck flexion over her trach/trach-tie -- this position compromised jugular venous return. 3. Acute respiratory failure = recurrent issue s/p intubation x3rd episode w/ extubation, now with Trach secure to Vent 3. HCAP=> Recurrent Aspiration PNA post emesis // Hx of GNR tracheobronchitis * Sputum 04/21/17 (+)Yeast * Sputum 05/06/17 (+)PSAR 4. Acute CHF w/elevated BNP 8000 in setting tachycardia, sepsis, pulmonary edema on CXR 5. s/p Nausea w/emesis on admission -> RESOLVED * Query: DM Autonomic Gastroparesis * GERD 6. Cholelithiasis w/dilated CBD->HIDA scan (+cholecystitis 04/12/17=> s/p Mansi Drain 04/17/17, no surgery per GI 7. Acute renal failure = started on HD 8. Dysphagia sp PEG placement 9. Paroxysmal Afib 10. NSTEMI in setting sepsis, tachycardia, acute hypoxic respiratory failure, acute CHF exacerbation 11. Elevated glucose - iatrogenic diabetes while on IV steroids 12. Leukocytosis = partial steroids demargination 13. Lip lesions => consistent w/herpes simplex virus outbreak -> On Valtrex HEALING 14. s/p GIB associates with Acute on chronic anemia secondary to AVM ==> stopped , status post EGD on May 02 with injection of epinephrine 15. Recent (+)C.Diff on 03/07/16 (treated) w/(-)C.Diff 03/20/17 (-) MRSA Nares screen (04/03/17) INVASIVES: Trach, PEG, FC, R-FEM Amrit (05/04/17) ABX ALLERGY: Iodine CURRENT ABX: =>Flagyl, Valtrex, + Cefepime #9 + Colistin INH #8 Cancidas -> DC 05/10 Merrem -> DC'd 05/08 Merrem #14 total -> DC'd 04/26=> Restarted ID PLAN=> She is completing a 10 day course of ABX for Sputum 05/06/17 (+)PSAR ASP PNA , s/p sepsis in ICU 1. Continue Valtrex until lip lesions healed, continue empiric Flagyl while on ABX for PSAR PNA * Continue current ABX --PSAR is sensitive to Cefepime + Colistin INH 2. Hx of C.Diff-> Keep on Flagyl while PSAR Trach decolonization ABX completed 3. Added Nystain PO oral swish spit + Vit B/C complex -- lip/mouth lesions healing . . Problems: Consultation Date/Type/Reason Admit Date/Time Apr 11, 2017 at 11:28 Initial Consult Date 04/11/17 Type of Consultation: ID Referring Provider: NINA MACIEL DO Exam/Review of Systems Vital Signs Vitals Vital Signs Date Time Temp Pulse Resp B/P Pulse Ox O2 Delivery O2 Flow Rate FiO2 05/17/17 16:53 75 16 100 30 05/17/17 15:23 98.1 129/74 Intake and Output 05/16/17 05/16/17 05/17/17 15:00 23:00 07:00 Intake Total 300 ml 700 ml 1000 ml Output Total 1000 ml 550 ml 650 ml Balance -700 ml 150 ml 350 ml Results Result Diagram: 05/17/17 0520 05/17/17 0520 Results 24 hrs Laboratory Tests Test 05/17/17 01:14 05/17/17 05:20 05/17/17 05:58 05/17/17 11:40 Bedside Glucose 184 135 182 White Blood Count 13.6 H Red Blood Count 3.70 L Hemoglobin 11.2 L Hematocrit 32.7 L Mean Corpuscular Volume 88.4 Mean Corpuscular Hemoglobin 30.3 Mean Corpuscular Hemoglobin Concent 34.3 Red Cell Distribution Width 17.2 H Platelet Count 326 Mean Platelet Volume 11.9 H Neutrophils % 83.7 H Lymphocytes % 5.7 L Monocytes % 4.9 Eosinophils % 0.0 Basophils % 0.2 Nucleated Red Blood Cells % 0.3 H Neutrophils # 11.4 H Lymphocytes # 0.8 Monocytes # 0.7 Eosinophils # 0.0 Basophils # 0.0 Nucleated Red Blood Cells # 0.0 Sodium Level 133 L Potassium Level 3.4 L Chloride Level 91 L Carbon Dioxide Level 31 Anion Gap 14 Blood Urea Nitrogen 101 H Creatinine 1.73 H Glucose Level 136 Calcium Level 8.5 Phosphorus Level 3.1 Magnesium Level 2.2 Thyroid Stimulating Hormone (TSH) 19.000 H Test 05/17/17 17:36 Bedside Glucose 157 Medications Medications Current Medications Aspirin (Aspirin) 325 mg DAILY NGT Last administered on 04/30/17 08:43; Admin Dose 325 MG; Start 04/12/17 at 09:00; Status Future Hold Metoprolol Tartrate (Lopressor) 5 mg Q4H PRN IV HR>110 Hold SBP<110 Last administered on 04/20/17 17:36; Admin Dose 5 MG; Start 04/11/17 at 13:30 Miscellaneous Information 1 ea NOTE XX ; Start 04/11/17 at 16:30 Glucose (Glutose) 15 gm Q15M PRN PO DECREASED GLUCOSE Last administered on 05/07 03:27; Admin Dose 15 GM; Start 04/11/17 at 16:30 Glucose (Glutose) 22.5 gm Q15M PRN PO DECREASED GLUCOSE; Start 04/11/17 at 16: 30 Dextrose (D50w Syringe) 25 ml Q15M PRN IV DECREASED GLUCOSE Last administered on 04/12/17 23:56; Admin Dose 25 ML; Start 04/11/17 at 16:30 Dextrose (D50w Syringe) 50 ml Q15M PRN IV DECREASED GLUCOSE; Start 04/11/17 at 16:30 Glucagon (Glucagen) 1 mg Q15M PRN IM DECREASED GLUCOSE; Start 04/11/17 at 16:30 Glucose (Glutose) 15 gm Q15M PRN BUCCAL DECREASED GLUCOSE; Start 04/11/17 at 16 :30 Metoclopramide HCl (Reglan) 10 mg Q6 IV Last administered on 05/17/17 17:37; Admin Dose 10 MG; Start 04/12/17 at 18:00 Insulin Aspart (Novolog Insulin Pen) NOVOLOG *MILD* ALGORI... Q6H SC Last administered on 05/17/17 17:39; Admin Dose 1 UNIT; Start 04/15/17 at 00:00 IV Flush (NS 10 ml) 10 ml PRN PRN IV FLUSH LINE; Start 04/15/17 at 13:00 Amiodarone HCl (Cordarone) 200 mg BID GTB Last administered on 05/17/17 09:58; Admin Dose 200 MG; Start 04/16/17 at 13:00 Heparin Sodium (Porcine) (Heparin (5000 Units/0.5 ml)) 5,000 unit BID SC Last administered on 04/30/17 21:03; Admin Dose 5,000 UNIT; Start 04/18/17 at 16:22; Status Future Hold Citalopram Hydrobromide (Celexa) 20 mg DAILY NGT Last administered on 05/17/17 09:59; Admin Dose 20 MG; Start 04/19/17 at 09:00 Hydralazine HCl (Apresoline) 20 mg Q6H PRN IV sbp ABOVE 160 Last administered on 05/14/17 19:01; Admin Dose 20 MG; Start 04/18/17 at 18:30 Chlorhexidine Gluconate (Peridex) 15 ml BID MT Last administered on 05/17/17 10 :01; Admin Dose 15 ML; Start 04/22/17 at 21:00 Vitamin A/Vitamin D (Vitamin A & D Oint) 1 applic TID TOP Last administered on 05/17/17 14:08; Admin Dose 1 APPLIC; Start 04/22/17 at 21:00 Vitamin A/Vitamin D (Vitamin A & D Oint) 1 applic TID PRN TOP DRYNESS Last administered on 04/22/17 15:29; Admin Dose 1 APPLIC; Start 04/22/17 at 15:00 Acetaminophen/ Hydrocodone Bitart ([place] (5/325)) 1 tab Q6H GTB Last administered on 05/17/17 15:29; Admin Dose 1 TAB; Start 04/22/17 at 21:30 Spironolactone (Aldactone) 25 mg DAILY NGT Last administered on 05/17/17 09:58 ; Admin Dose 25 MG; Start 04/25/17 at 19:00; Status Future hold Diltiazem HCl (Cardizem Iv) 5 mg Q1H PRN IV HEART RATE GREATER THAN 120 Last administered on 04/29/17 06:17; Admin Dose 5 MG; Start 04/29/17 at 05:00 Metronidazole 500 mg 500 mg Q8 GTB Last administered on 05/17/17 14:08; Admin Dose 500 MG; Start 04/30/17 at 22:00 Sodium Chloride 1,000 ml @ 0 mls/hr Q0M IV Last administered on 05/01/17 03: 00; Admin Dose 1,000 MLS/HR; Start 05/01/17 at 03:00 Sodium Chloride (NS) 1,000 ml @ 0 mls/hr Q0M IV Last administered on 04:00; Admin Dose 1,000 MLS/HR; Start 05/01/17 at 03:30 Pantoprazole 40 mg 40 mg BID@06,18 IV Last administered on 05/17/17 17:37; Admin Dose 40 MG; Start 05/02/17 at 15:00 Diltiazem HCl (Cardizem-D5W 125 Mg/125 ml Drip) 125 ml @ 5 mls/hr TITRATE IV Last administered on 05/02/17 19:11; Admin Dose 5 MLS/HR; Start 05/02/17 at 19: 00 Valacyclovir HCl (Valtrex) 1,000 mg DAILY GTB Last administered on 05/17/17 09: 59; Admin Dose 1,000 MG; Start 05/06/17 at 09:00 Metoprolol Tartrate (Lopressor) 25 mg QID GTB Last administered on 05/17/17 17: 37; Admin Dose 25 MG; Start 05/07/17 at 09:00 Furosemide 40 mg 40 mg Q12 IV Last administered on 05/17/17 09:59; Admin Dose 40 MG; Start 05/08/17 at 09:00 Cefepime HCl (Maxipime 1gm/50 ml (Pmx)) 50 ml @ 100 mls/hr Q24H IVPB Last administered on 05/17/17 17:38; Admin Dose 100 MLS/HR; Start 05/08/17 at 18:00 Vitamin B Complex/ Vitamin C (Berocca) 1 cap DAILY PO Last administered on 09:59; Admin Dose 1 CAP; Start 05/13/17 at 09:00 Nystatin (Nystatin Susp) 5 ml QID PO Last administered on 05/17/17 17:37; Admin Dose 5 ML; Start 05/12/17 at 17:00 Hydrocortisone (Solu-Cortef) 20 mg TID IV Last administered on 05/17/17 14:07; Admin Dose 20 MG; Start 05/17/17 at 09:30 MARGOT WILLS NP May 17, 2017 18:55
[2017-05-18] VITALS (23 sets, daily range): BP systolic 130–159; BP diastolic 59–73; PULSE 66–73; RESP 16–18
[2017-05-18] MEDS: LEVALBUTEROL (HFA) 15 GM INHALER INH SCH ×4 (01:49→19:11)
[2017-05-18] MEDS: HYDROCODONE/APAP (5/325) TAB GTB SCH ×4 (03:30→22:08)
[2017-05-18] MEDS: PANTOPRAZOLE 40 MG INJ IV SCH ×2 (06:39→17:36)
[2017-05-18] MEDS: metroNIDAZOLE 500 MG TAB GTB SCH ×3 (06:39→21:13)
[2017-05-18] MEDS: LEVOTHYROXINE 75 MCG TAB GTB SCH (06:39)
[2017-05-18] MEDS: METOCLOPRAMIDE 10 MG INJ IV SCH ×4 (06:39→17:38)
[2017-05-18] MEDS: INSULIN ASPART [NOVOLOG] 3 ML PEN SC SCH ×4 (06:44→17:40)
[2017-05-18] MEDS: COLISTIMETHATE (25 MG/ML INHAL SYG) NEB SCH ×2 (08:09→19:08)
[2017-05-18] MEDS: CITALOPRAM 20 MG TAB NGT SCH (08:45)
[2017-05-18] MEDS: VALACYCLOVIR 500 MG TAB GTB SCH (08:46)
[2017-05-18] MEDS: METOPROLOL 25 MG TAB GTB SCH ×4 (08:46→21:13)
[2017-05-18] MEDS: AMIODARONE 200 MG TAB GTB SCH ×2 (08:46→21:13)
[2017-05-18] MEDS: VITAMIN B COMPLEX/VIT C CAP PO SCH (08:46)
[2017-05-18] MEDS: SPIRONOLACTONE 25 MG TAB NGT SCH (08:46)
[2017-05-18] MEDS: CHLORHEXIDINE GLUCONATE 15 ML UD CUP MT SCH ×2 (08:46→21:14)
[2017-05-18] MEDS: VITAMIN A & D 5 GM OINT PACKET TOP SCH ×3 (08:47→21:12)
[2017-05-18] MEDS: NYSTATIN SUSP 5 ML CUP PO SCH ×4 (08:47→21:14)
[2017-05-18] MEDS: HYDROCORTISONE 100 MG INJ IV SCH ×3 (08:47→21:12)
[2017-05-18] MEDS: FUROSEMIDE 40 MG INJ IV SCH ×2 (08:47→21:14)
--- NOTE | 2017-05-18 11:03 | PN ---
Date/Time of Note Date/Time of Note DATE: 05/18/17 TIME: 10:58 Assessment/Plan Lines/Catheters IV Catheter Type (from [facility]): BHARTI CATH Latif in Place (from [facility]): Yes Assessment/Plan Chief Complaint/Hosp Course 1. Cholelithiasis: Tolerating tube feeds; no abdominal pain/discomfort; +bowel function -No surgical intervention required at this time 2. Pneumonia: Recurrent +sputum cultures; appears comfortable -pulmonary toilet -abx per ID -wean as tolerated 3. Vent dependent respiratory failure: 2/2 aspiration PNA+ CHF;reintubated and extubated, coded 04/21 and 05/01; comfortable on vent; eager to wean her off vent -as above 4. Septic Shock resolved 5. Uncontrolled Afib: s/p amiodarone drip, on oral amiodarone; episodes of Afib Now SR -medical optimization 6. Leukocytosis with lactic acidosis: 2/2 pneumonia +/- steroids vs.fungemia vs other (urine, repeat blood cultures negative); improving -abx, antifungals -supportive measures 7. Macrocytic anemia: chronic vs. dilutional vs. acute bleed vs. b12/folate deficiency; hh stable -monitor -Transfuse as needed 8. KEYONNA: likely 2/2 septic shock HD yesterday without incident; with + urine output; cr improved -judicious fluid management -avoid nephrotoxic agents 9. CHF: BNP elevated -judicious fluid management -medical optimization 10. Adrenal Insufficiency -solucortef 11. Oral lesions: improving 12. Hypothyroidism; tsh elevated -on synthroid 13. Encephalopathy: 2/2 toxic metabolic vs. anoxic injury; CT: No acute intracranial hemorrhage or mass effect. Mild chronic microvascular disease and intracranial atherosclerosis; EEG shows no seizure activity: fully awake -supportive 14. Bilateral upper extremity edema: likely 2/2 decreased movement vs. thrombosis; initial doppler negative, repeat doppler left arm (+) Thrombus -elevate extremities -supportive 15. Hypoalbuminemia: 2/2 malnutrition +/- inflammation; decreased; tolerating tf ; -nutrition optimization -as above 16. Hypocalcemia with hypoalbuminemia -optimize nutrition 17. Fungemia -antifungals 18. Electrolyte imbalance: (hyponatremia, hypokalemia) -electrolyte optimization Patient seen and examined in collaboration with Dr. Justus Antonio. Thank you Problems: Subjective 24 Hr Interval Summary Feels well. Awake, alert and responsive. Comfortable on vent. No abdominal pain. +bowel function. HD yesterday without incident. No fevers, chills, n/v/d/ dysuria, dizziness, metzger, cp. Exam/Review of Systems Vital Signs Vitals Vital Signs Date Time Temp Pulse Resp B/P Pulse Ox O2 Delivery O2 Flow Rate FiO2 05/18/17 08:53 70 05/18/17 08:02 16 100 30 05/18/17 07:45 98.5 138/66 Intake and Output 05/17/17 05/17/17 05/18/17 15:00 23:00 07:00 Intake Total 500 ml 1000 ml 1000 ml Output Total 4000 ml 450 ml 800 ml Balance -3500 ml 550 ml 200 ml Exam Free Text/Dictation Constitutional: fully awake, responsive Head: atraumatic, normocephalic Eyes: PERRL, nl lids, nl sclera ENMT: No mucosa pink and moist (pink and moist with healing perioral lesions) Neck: non-tender, supple, tracheostomy Respiratory: diminished, comfortable on vent Cardiovascular: nl pulses, regular rate and rhythm, Gastrointestinal: non distended, GT tubes site no erythema, no drainage, non tenderness, bowel sounds x 4 quads, soft; tf ongoing Genitourinary - Female: nl external genitalia Musculoskeletal: nl extremities to inspection Extremities: normal pulses, bilateral upper/lower extremity edema 2+; improving Neurological: responsive Skin: nl turgor, No rash or lesions Lymph: nl lymph nodes Results Result Diagram: 05/17/1751905/17/1720 ADDISON FREGOSO NP May 18, 2017 11:03
--- NOTE | 2017-05-18 11:58 | CONS ---
Date/Time of Note Date/Time of Note DATE: 05/18/17 TIME: 11:56 Consult Date/Type/Reason Admit Date/Time Apr 11, 2017 at 11:28 Initial Consult Date 04/12/17 Type of Consultation: CARDIOLOGY Ordering Provider: NINA MACIEL DO Subjective CARDIOLOGY FOLLOW UP NOTE: D/W staff and . rhythm was reviewed. pt remains in NSR. no afib overnight no chest pain or pressure or palpitations. pt still s/p trach on vent on tele. s/p transfusion on 05/14/17 Objective: General: s/p trach on vent HEENT: NC/AT. . oropharynx with multiple lesions. . NECK: NO JVD. no stridor. s/p trach on vent CV: RRR. systolic ejection murmur; no gallop or rubs. PULM: + mild rhonchi. no wheezes. GI: SOFT, NT, ND, no rebound or guarding s/p PEG Extremity: 1-2+ B/L LE edema. no clubbing. neuro: Drowsy. sleepy. Psych: calm rectal: deferred Derm: multiple echymosis : S/P mims catheter in place. Objective Vital Signs Date Time Temp Pulse Resp B/P Pulse Ox O2 Delivery O2 Flow Rate FiO2 05/18/17 11:50 97.7 69 18 130/59 99 05/18/17 11:19 30 Intake and Output 05/17/17 05/17/17 05/18/17 15:00 23:00 07:00 Intake Total 500 ml 1000 ml 1000 ml Output Total 4000 ml 450 ml 800 ml Balance -3500 ml 550 ml 200 ml Results/Medications Result Diagram: 05/17/17 0520 05/17/17 0520 Results 24 hrs Laboratory Tests Test 05/17/17 17:36 05/18/17 06:39 Bedside Glucose 157 191 Medications Current Medications Aspirin (Aspirin) 325 mg DAILY NGT Last administered on 04/30/17 08:43; Admin Dose 325 MG; Start 04/12/17 at 09:00; Status Future Hold Metoprolol Tartrate (Lopressor) 5 mg Q4H PRN IV HR>110 Hold SBP<110 Last administered on 04/20/17 17:36; Admin Dose 5 MG; Start 04/11/17 at 13:30 Miscellaneous Information 1 ea NOTE XX ; Start 04/11/17 at 16:30 Glucose (Glutose) 15 gm Q15M PRN PO DECREASED GLUCOSE Last administered on 05/07 03:27; Admin Dose 15 GM; Start 04/11/17 at 16:30 Glucose (Glutose) 22.5 gm Q15M PRN PO DECREASED GLUCOSE; Start 04/11/17 at 16: 30 Dextrose (D50w Syringe) 25 ml Q15M PRN IV DECREASED GLUCOSE Last administered on 04/12/17 23:56; Admin Dose 25 ML; Start 04/11/17 at 16:30 Dextrose (D50w Syringe) 50 ml Q15M PRN IV DECREASED GLUCOSE; Start 04/11/17 at 16:30 Glucagon (Glucagen) 1 mg Q15M PRN IM DECREASED GLUCOSE; Start 04/11/17 at 16:30 Glucose (Glutose) 15 gm Q15M PRN BUCCAL DECREASED GLUCOSE; Start 04/11/17 at 16 :30 Metoclopramide HCl (Reglan) 10 mg Q6 IV Last administered on 05/18/17 06:39; Admin Dose 10 MG; Start 04/12/17 at 18:00 Insulin Aspart (Novolog Insulin Pen) NOVOLOG *MILD* ALGORI... Q6H SC Last administered on 05/18/17 06:44; Admin Dose 2 UNIT; Start 04/15/17 at 00:00 IV Flush (NS 10 ml) 10 ml PRN PRN IV FLUSH LINE; Start 04/15/17 at 13:00 Amiodarone HCl (Cordarone) 200 mg BID GTB Last administered on 05/18/17 08:46; Admin Dose 200 MG; Start 04/16/17 at 13:00 Heparin Sodium (Porcine) (Heparin (5000 Units/0.5 ml)) 5,000 unit BID SC Last administered on 04/30/17 21:03; Admin Dose 5,000 UNIT; Start 04/18/17 at 16:22; Status Future Hold Citalopram Hydrobromide (Celexa) 20 mg DAILY NGT Last administered on 05/18/17 08:45; Admin Dose 20 MG; Start 04/19/17 at 09:00 Hydralazine HCl (Apresoline) 20 mg Q6H PRN IV sbp ABOVE 160 Last administered on 05/14/17 19:01; Admin Dose 20 MG; Start 04/18/17 at 18:30 Chlorhexidine Gluconate (Peridex) 15 ml BID MT Last administered on 05/18/17 08 :46; Admin Dose 15 ML; Start 04/22/17 at 21:00 Vitamin A/Vitamin D (Vitamin A & D Oint) 1 applic TID TOP Last administered on 05/18/17 08:47; Admin Dose 1 APPLIC; Start 04/22/17 at 21:00 Vitamin A/Vitamin D (Vitamin A & D Oint) 1 applic TID PRN TOP DRYNESS Last administered on 04/22/17 15:29; Admin Dose 1 APPLIC; Start 04/22/17 at 15:00 Acetaminophen/ Hydrocodone Bitart ([place] (5/325)) 1 tab Q6H GTB Last administered on 05/18/17 10:02; Admin Dose 1 TAB; Start 04/22/17 at 21:30 Spironolactone (Aldactone) 25 mg DAILY NGT Last administered on 05/18/17 08:46 ; Admin Dose 25 MG; Start 04/25/17 at 19:00; Status Future hold Diltiazem HCl (Cardizem Iv) 5 mg Q1H PRN IV HEART RATE GREATER THAN 120 Last administered on 04/29/17 06:17; Admin Dose 5 MG; Start 04/29/17 at 05:00 Metronidazole 500 mg 500 mg Q8 GTB Last administered on 05/18/17 06:39; Admin Dose 500 MG; Start 04/30/17 at 22:00 Sodium Chloride 1,000 ml @ 0 mls/hr Q0M IV Last administered on 05/01/17 03: 00; Admin Dose 1,000 MLS/HR; Start 05/01/17 at 03:00 Sodium Chloride (NS) 1,000 ml @ 0 mls/hr Q0M IV Last administered on 04:00; Admin Dose 1,000 MLS/HR; Start 05/01/17 at 03:30 Pantoprazole 40 mg 40 mg BID@06,18 IV Last administered on 05/18/17 06:39; Admin Dose 40 MG; Start 05/02/17 at 15:00 Diltiazem HCl (Cardizem-D5W 125 Mg/125 ml Drip) 125 ml @ 5 mls/hr TITRATE IV Last administered on 05/02/17 19:11; Admin Dose 5 MLS/HR; Start 05/02/17 at 19: 00 Valacyclovir HCl (Valtrex) 1,000 mg DAILY GTB Last administered on 05/18/17 08: 46; Admin Dose 1,000 MG; Start 05/06/17 at 09:00 Metoprolol Tartrate (Lopressor) 25 mg QID GTB Last administered on 05/18/17 08: 46; Admin Dose 25 MG; Start 05/07/17 at 09:00 Furosemide 40 mg 40 mg Q12 IV Last administered on 05/18/17 08:47; Admin Dose 40 MG; Start 05/08/17 at 09:00 Cefepime HCl (Maxipime 1gm/50 ml (Pmx)) 50 ml @ 100 mls/hr Q24H IVPB Last administered on 05/17/17 17:38; Admin Dose 100 MLS/HR; Start 05/08/17 at 18:00 Vitamin B Complex/ Vitamin C (Berocca) 1 cap DAILY PO Last administered on 08:46; Admin Dose 1 CAP; Start 05/13/17 at 09:00 Nystatin (Nystatin Susp) 5 ml QID PO Last administered on 05/18/17 08:47; Admin Dose 5 ML; Start 05/12/17 at 17:00 Hydrocortisone (Solu-Cortef) 20 mg TID IV Last administered on 05/18/17 08:47; Admin Dose 20 MG; Start 05/17/17 at 09:30 Assessment/Plan Chief Complaint/Hosp Course 1. acute on chronic hypoxemic respiratory failure: 2. NSTEMI: due to demand ischemia. 3. CHF/ fluid overload: due to diastolic heart failure 4. moderate 5. Arrhythmia and P afib, frequent PVC: currently in NSR. 6. ANEMIA: s/p multiple transfusion 7. s/p pneumonia, . 8. s/p sepsis and shock: BP is stable now. 9. Anasarca 10. s/p cardiopulm arrest due to resp failure 11. renal failure on HD now. 12. coagulopathy Rec: cont resp care as per PULM Team. correct lytes prn. keep K > 4, Mg > 2 CONT betablocker as tolerated. . cont thyroid supplement . cont tele monitoring HD/ ultrafiltration as per renal. transfuse prn will dec ASA 81 mg only due to recurrent anemia. THANK YOU. Problems: FRANCISCO BLACKWOOD MD May 18, 2017 11:58
--- NOTE | 2017-05-18 12:55 | CONS ---
Date/Time of Note Date/Time of Note DATE: 05/18/17 TIME: 12:53 Assessment/Plan Assessment/Plan Chief Complaint/Hosp Course 1. Ventilatory-dependant respiratory failure. Vent settings reviewed. ABGs reviewed. Continue to monitor. Follow up with Pulmonary. 2. History of thyroid cancer with tracheomalacia. The patient is status post ENT evaluation. Appreciate recommendations. Continue to monitor. 3. Nonoliguric acute kidney injury on top of chronic kidney disease. - Etiology of acute kidney injury is likely atn. -The patient is currently dialysis dependent. next hd tomorrow -ultrafiltration as tolerated. Monitor for signs of recovery. 4. Volume overload secondary to acute kidney injury, congestive heart failure. - Continue ultrafiltration dialysis. 5. Sepsis, status post shock secondary to aspiration pneumonia, fungemia. -Continue antibiotic therapy, antifungal therapy. 6. Adrenal insufficiency. Continue current steroid regimen. 7. Acute encephalopathy. Etiology is toxic metabolic. Continue to monitor. 8. Hypothyroidism. Continue Synthroid. 9. Anemia. Continue to monitor H and H levels. 10. Mineral bone disorder. Continue to monitor calcium and phosphorus levels. 11. History of congestive heart failure. 12. Leukocytosis multifactorial secondary to steroids but improving. 13. Left upper extremity deep vein thrombosis. Continue to hold antiplatelets. Due to recent gastrointestinal bleed. 14. Dysphagia. Continue tube feeding. 15. . Continue current medical management. 16. Status post upper gastrointestinal bleed. 17. Gastrointestinal and deep venous thrombosis prophylaxis. Continue proton pump inhibitor and sequential leg squeezes. Problems: Consultation Date/Type/Reason Admit Date/Time Apr 11, 2017 at 11:28 Initial Consult Date 04/14/17 Type of Consultation: nephrology Referring Provider: NINA MACIEL DO 24 HR Interval Summary Free Text/Dictation pt seen and examined some uop in mims on vent d/w rn s/p hd yesterday Subjective hx not possible: pt non-verbal, pt critical Exam/Review of Systems Vital Signs Vitals Vital Signs Date Time Temp Pulse Resp B/P Pulse Ox O2 Delivery O2 Flow Rate FiO2 05/18/17 11:50 97.7 69 18 130/59 99 05/18/17 11:19 30 Intake and Output 05/17/17 05/17/17 05/18/17 15:00 23:00 07:00 Intake Total 500 ml 1000 ml 1000 ml Output Total 4000 ml 450 ml 800 ml Balance -3500 ml 550 ml 200 ml Exam Constitutional: non-verbal, other Psych: confusion Eyes: EOMI, PERRL, nl conjunctiva, nl lids, nl sclera ENMT: nl external ears & nose, nl lips & teeth, nl nasal mucosa & septum Neck: other (trach midline) Respiratory: diminished breath sounds Cardiovascular: regular rate and rhythm Musculoskeletal: nl extremities to inspection, nl gait and stance Extremities: normal pulses Neurological: SUPERVISOR DITCHING II-XII intact, DTR's symmetric, confused, nl speech, nl strength Results Result Diagram: 05/17/17 0520 05/17/17 0520 Results 24 hrs Laboratory Tests Test 05/17/17 17:36 05/18/17 06:39 05/18/17 12:19 Bedside Glucose 157 191 148 Medications Medications Current Medications Metoprolol Tartrate (Lopressor) 5 mg Q4H PRN IV HR>110 Hold SBP<110 Last administered on 04/20/17 17:36; Admin Dose 5 MG; Start 04/11/17 at 13:30 Miscellaneous Information 1 ea NOTE XX ; Start 04/11/17 at 16:30 Glucose (Glutose) 15 gm Q15M PRN PO DECREASED GLUCOSE Last administered on 05/07 03:27; Admin Dose 15 GM; Start 04/11/17 at 16:30 Glucose (Glutose) 22.5 gm Q15M PRN PO DECREASED GLUCOSE; Start 04/11/17 at 16: 30 Dextrose (D50w Syringe) 25 ml Q15M PRN IV DECREASED GLUCOSE Last administered on 04/12/17 23:56; Admin Dose 25 ML; Start 04/11/17 at 16:30 Dextrose (D50w Syringe) 50 ml Q15M PRN IV DECREASED GLUCOSE; Start 04/11/17 at 16:30 Glucagon (Glucagen) 1 mg Q15M PRN IM DECREASED GLUCOSE; Start 04/11/17 at 16:30 Glucose (Glutose) 15 gm Q15M PRN BUCCAL DECREASED GLUCOSE; Start 04/11/17 at 16 :30 Metoclopramide HCl (Reglan) 10 mg Q6 IV Last administered on 05/18/17 12:25; Admin Dose 10 MG; Start 04/12/17 at 18:00 Insulin Aspart (Novolog Insulin Pen) NOVOLOG *MILD* ALGORI... Q6H SC Last administered on 05/18/17 12:27; Admin Dose 1 UNIT; Start 04/15/17 at 00:00 IV Flush (NS 10 ml) 10 ml PRN PRN IV FLUSH LINE; Start 04/15/17 at 13:00 Amiodarone HCl (Cordarone) 200 mg BID GTB Last administered on 05/18/17 08:46; Admin Dose 200 MG; Start 04/16/17 at 13:00 Heparin Sodium (Porcine) (Heparin (5000 Units/0.5 ml)) 5,000 unit BID SC Last administered on 04/30/17 21:03; Admin Dose 5,000 UNIT; Start 04/18/17 at 16:22; Status Future Hold Citalopram Hydrobromide (Celexa) 20 mg DAILY NGT Last administered on 05/18/17 08:45; Admin Dose 20 MG; Start 04/19/17 at 09:00 Hydralazine HCl (Apresoline) 20 mg Q6H PRN IV sbp ABOVE 160 Last administered on 05/14/17 19:01; Admin Dose 20 MG; Start 04/18/17 at 18:30 Chlorhexidine Gluconate (Peridex) 15 ml BID MT Last administered on 05/18/17 08 :46; Admin Dose 15 ML; Start 04/22/17 at 21:00 Vitamin A/Vitamin D (Vitamin A & D Oint) 1 applic TID TOP Last administered on 05/18/17 12:25; Admin Dose 1 APPLIC; Start 04/22/17 at 21:00 Vitamin A/Vitamin D (Vitamin A & D Oint) 1 applic TID PRN TOP DRYNESS Last administered on 04/22/17 15:29; Admin Dose 1 APPLIC; Start 04/22/17 at 15:00 Acetaminophen/ Hydrocodone Bitart ([place] (5/325)) 1 tab Q6H GTB Last administered on 05/18/17 10:02; Admin Dose 1 TAB; Start 04/22/17 at 21:30 Spironolactone (Aldactone) 25 mg DAILY NGT Last administered on 05/18/17 08:46 ; Admin Dose 25 MG; Start 04/25/17 at 19:00; Status Future hold Diltiazem HCl (Cardizem Iv) 5 mg Q1H PRN IV HEART RATE GREATER THAN 120 Last administered on 04/29/17 06:17; Admin Dose 5 MG; Start 04/29/17 at 05:00 Metronidazole 500 mg 500 mg Q8 GTB Last administered on 05/18/17 06:39; Admin Dose 500 MG; Start 04/30/17 at 22:00 Sodium Chloride 1,000 ml @ 0 mls/hr Q0M IV Last administered on 05/01/17 03: 00; Admin Dose 1,000 MLS/HR; Start 05/01/17 at 03:00 Sodium Chloride (NS) 1,000 ml @ 0 mls/hr Q0M IV Last administered on 04:00; Admin Dose 1,000 MLS/HR; Start 05/01/17 at 03:30 Pantoprazole 40 mg 40 mg BID@06,18 IV Last administered on 05/18/17 06:39; Admin Dose 40 MG; Start 05/02/17 at 15:00 Diltiazem HCl (Cardizem-D5W 125 Mg/125 ml Drip) 125 ml @ 5 mls/hr TITRATE IV Last administered on 05/02/17 19:11; Admin Dose 5 MLS/HR; Start 05/02/17 at 19: 00 Valacyclovir HCl (Valtrex) 1,000 mg DAILY GTB Last administered on 05/18/17 08: 46; Admin Dose 1,000 MG; Start 05/06/17 at 09:00 Metoprolol Tartrate (Lopressor) 25 mg QID GTB Last administered on 05/18/17 12: 25; Admin Dose 25 MG; Start 05/07/17 at 09:00 Furosemide 40 mg 40 mg Q12 IV Last administered on 05/18/17 08:47; Admin Dose 40 MG; Start 05/08/17 at 09:00 Cefepime HCl (Maxipime 1gm/50 ml (Pmx)) 50 ml @ 100 mls/hr Q24H IVPB Last administered on 05/17/17 17:38; Admin Dose 100 MLS/HR; Start 05/08/17 at 18:00 Vitamin B Complex/ Vitamin C (Berocca) 1 cap DAILY PO Last administered on 08:46; Admin Dose 1 CAP; Start 05/13/17 at 09:00 Nystatin (Nystatin Susp) 5 ml QID PO Last administered on 05/18/17 12:25; Admin Dose 5 ML; Start 05/12/17 at 17:00 Hydrocortisone (Solu-Cortef) 20 mg TID IV Last administered on 05/18/17 12:25; Admin Dose 20 MG; Start 05/17/17 at 09:30 Aspirin (Aspirin) 81 mg DAILY NGT ; Start 05/19/17 at 09:00 TAVO WARD MD May 18, 2017 12:55
--- NOTE | 2017-05-18 14:03 | CONS ---
Date/Time of Note Date/Time of Note DATE: 05/18/17 TIME: 14:01 Assessment/Plan Assessment/Plan Chief Complaint/Hosp Course ID PROGRESS NOTE CURRENT ABX=> Flagyl, + Cefepime #9+ Colistin INH #8 * She is completing a 10 day course of ABX for Sputum 05/06/17 (+)PSAR ASP PNA , s/p sepsis in ICU Valtrex,-> DC 05/17 Cancidas -> DC 05/10 Merrem -> DC'd 05/08 Merrem #14 total -> DC'd 04/26=> Restarted 24H INTERVAL SUMMARY/HOSPITAL COURSE * Doing well, no complaints, lip lesions better, facial edema improved * WBC 13.6, No fevers PHYSICAL EXAMINATION: GENERAL: 66 yo F, stable on the Vent HEENT: Atraumatic, (+)Lip crusting lesions healing NECK: (+)Trach in place secure to VENT CHEST: Rise symmetrical w/coarse BS, scattered rales/rhonchi ABDOMEN: Soft, peg EXTREMITIES: Warm, moves extremities ID ASSESSMENT: 66 yo F w/PMHx tongue cancer, chronic trach re-admit H from SNF with: 1. s/p Acute severe sepsis/shock on admission w/(+)fever, tachycardia, lactic acidosis, leukocytosis, (+)troponin leak = RESOLVING * Leukocytosis persisting -> IV Steroids onboard * Fungemia => repeat BCx negative 2. Anasarca w/increased facial edema/bilateral lip edema w/resolving HSV lip lesions resolving * -- facial edema is worse due to patient preference while sitting up to lean her head forward w/neck flexion over her trach/trach-tie -- this position compromised jugular venous return. 3. Acute respiratory failure = recurrent issue s/p intubation x3rd episode w/ extubation, now with Trach secure to Vent 3. HCAP=> Recurrent Aspiration PNA post emesis // Hx of GNR tracheobronchitis * Sputum 04/21/17 (+)Yeast * Sputum 05/06/17 (+)PSAR 4. Acute CHF w/elevated BNP 8000 in setting tachycardia, sepsis, pulmonary edema on CXR 5. s/p Nausea w/emesis on admission -> RESOLVED * Query: DM Autonomic Gastroparesis * GERD 6. Cholelithiasis w/dilated CBD->HIDA scan (+cholecystitis 04/12/17=> s/p Mansi Drain 04/17/17, no surgery per GI 7. Acute renal failure = started on HD 8. Dysphagia sp PEG placement 9. Paroxysmal Afib 10. NSTEMI in setting sepsis, tachycardia, acute hypoxic respiratory failure, acute CHF exacerbation 11. Elevated glucose - iatrogenic diabetes while on IV steroids 12. Leukocytosis = partial steroids demargination 13. Lip lesions => consistent w/herpes simplex virus outbreak -> On Valtrex HEALING 14. s/p GIB associates with Acute on chronic anemia secondary to AVM ==> stopped , status post EGD on May 02 with injection of epinephrine 15. Recent (+)C.Diff on 03/07/16 (treated) w/(-)C.Diff 03/20/17 (-) MRSA Nares screen (04/03/17) INVASIVES: Trach, PEG, FC, R-FEM Amrit (05/04/17) ABX ALLERGY: Iodine CURRENT ABX=> Flagyl, + Cefepime #9+ Colistin INH #8 Valtrex,-> DC 05/17 Cancidas -> DC 05/10 Merrem -> DC'd 05/08 Merrem #14 total -> DC'd 04/26=> Restarted ID PLAN=> She is completing a 10 day course of ABX for Sputum 05/06/17 (+)PSAR ASP PNA , s/p sepsis in ICU 1. Continue Valtrex until lip lesions healed, continue empiric Flagyl while on ABX for PSAR PNA * Continue current ABX --PSAR is sensitive to Cefepime + Colistin INH 2. Hx of C.Diff-> Keep on Flagyl while PSAR Trach decolonization ABX completed 3. Added Nystain PO oral swish spit + Vit B/C complex -- lip/mouth lesions healing . . Problems: Consultation Date/Type/Reason Admit Date/Time Apr 11, 2017 at 11:28 Initial Consult Date 04/11/17 Type of Consultation: ID Referring Provider: NINA MACIEL DO Exam/Review of Systems Vital Signs Vitals Vital Signs Date Time Temp Pulse Resp B/P Pulse Ox O2 Delivery O2 Flow Rate FiO2 05/18/17 13:57 67 05/18/17 13:34 16 30 05/18/17 11:50 97.7 130/59 99 Intake and Output 05/17/17 05/17/17 05/18/17 15:00 23:00 07:00 Intake Total 500 ml 1000 ml 1000 ml Output Total 4000 ml 450 ml 800 ml Balance -3500 ml 550 ml 200 ml Results Result Diagram: 05/17/17 0520 05/17/17 0520 Results 24 hrs Laboratory Tests Test 05/17/17 17:36 05/18/17 06:39 05/18/17 12:19 Bedside Glucose 157 191 148 Medications Medications Current Medications Metoprolol Tartrate (Lopressor) 5 mg Q4H PRN IV HR>110 Hold SBP<110 Last administered on 04/20/17 17:36; Admin Dose 5 MG; Start 04/11/17 at 13:30 Miscellaneous Information 1 ea NOTE XX ; Start 04/11/17 at 16:30 Glucose (Glutose) 15 gm Q15M PRN PO DECREASED GLUCOSE Last administered on 05/07 03:27; Admin Dose 15 GM; Start 04/11/17 at 16:30 Glucose (Glutose) 22.5 gm Q15M PRN PO DECREASED GLUCOSE; Start 04/11/17 at 16: 30 Dextrose (D50w Syringe) 25 ml Q15M PRN IV DECREASED GLUCOSE Last administered on 04/12/17 23:56; Admin Dose 25 ML; Start 04/11/17 at 16:30 Dextrose (D50w Syringe) 50 ml Q15M PRN IV DECREASED GLUCOSE; Start 04/11/17 at 16:30 Glucagon (Glucagen) 1 mg Q15M PRN IM DECREASED GLUCOSE; Start 04/11/17 at 16:30 Glucose (Glutose) 15 gm Q15M PRN BUCCAL DECREASED GLUCOSE; Start 04/11/17 at 16 :30 Metoclopramide HCl (Reglan) 10 mg Q6 IV Last administered on 05/18/17 12:25; Admin Dose 10 MG; Start 04/12/17 at 18:00 Insulin Aspart (Novolog Insulin Pen) NOVOLOG *MILD* ALGORI... Q6H SC Last administered on 05/18/17 12:27; Admin Dose 1 UNIT; Start 04/15/17 at 00:00 IV Flush (NS 10 ml) 10 ml PRN PRN IV FLUSH LINE; Start 04/15/17 at 13:00 Amiodarone HCl (Cordarone) 200 mg BID GTB Last administered on 05/18/17 08:46; Admin Dose 200 MG; Start 04/16/17 at 13:00 Heparin Sodium (Porcine) (Heparin (5000 Units/0.5 ml)) 5,000 unit BID SC Last administered on 04/30/17 21:03; Admin Dose 5,000 UNIT; Start 04/18/17 at 16:22; Status Future Hold Citalopram Hydrobromide (Celexa) 20 mg DAILY NGT Last administered on 05/18/17 08:45; Admin Dose 20 MG; Start 04/19/17 at 09:00 Hydralazine HCl (Apresoline) 20 mg Q6H PRN IV sbp ABOVE 160 Last administered on 05/14/17 19:01; Admin Dose 20 MG; Start 04/18/17 at 18:30 Chlorhexidine Gluconate (Peridex) 15 ml BID MT Last administered on 05/18/17 08 :46; Admin Dose 15 ML; Start 04/22/17 at 21:00 Vitamin A/Vitamin D (Vitamin A & D Oint) 1 applic TID TOP Last administered on 05/18/17 12:25; Admin Dose 1 APPLIC; Start 04/22/17 at 21:00 Vitamin A/Vitamin D (Vitamin A & D Oint) 1 applic TID PRN TOP DRYNESS Last administered on 04/22/17 15:29; Admin Dose 1 APPLIC; Start 04/22/17 at 15:00 Acetaminophen/ Hydrocodone Bitart ([place] (5/325)) 1 tab Q6H GTB Last administered on 05/18/17 10:02; Admin Dose 1 TAB; Start 04/22/17 at 21:30 Spironolactone (Aldactone) 25 mg DAILY NGT Last administered on 05/18/17 08:46 ; Admin Dose 25 MG; Start 04/25/17 at 19:00; Status Future hold Diltiazem HCl (Cardizem Iv) 5 mg Q1H PRN IV HEART RATE GREATER THAN 120 Last administered on 04/29/17 06:17; Admin Dose 5 MG; Start 04/29/17 at 05:00 Metronidazole 500 mg 500 mg Q8 GTB Last administered on 05/18/17 06:39; Admin Dose 500 MG; Start 04/30/17 at 22:00 Sodium Chloride 1,000 ml @ 0 mls/hr Q0M IV Last administered on 05/01/17 03: 00; Admin Dose 1,000 MLS/HR; Start 05/01/17 at 03:00 Sodium Chloride (NS) 1,000 ml @ 0 mls/hr Q0M IV Last administered on 04:00; Admin Dose 1,000 MLS/HR; Start 05/01/17 at 03:30 Pantoprazole 40 mg 40 mg BID@06,18 IV Last administered on 05/18/17 06:39; Admin Dose 40 MG; Start 05/02/17 at 15:00 Diltiazem HCl (Cardizem-D5W 125 Mg/125 ml Drip) 125 ml @ 5 mls/hr TITRATE IV Last administered on 05/02/17 19:11; Admin Dose 5 MLS/HR; Start 05/02/17 at 19: 00 Valacyclovir HCl (Valtrex) 1,000 mg DAILY GTB Last administered on 05/18/17 08: 46; Admin Dose 1,000 MG; Start 05/06/17 at 09:00 Metoprolol Tartrate (Lopressor) 25 mg QID GTB Last administered on 05/18/17 12: 25; Admin Dose 25 MG; Start 05/07/17 at 09:00 Furosemide 40 mg 40 mg Q12 IV Last administered on 05/18/17 08:47; Admin Dose 40 MG; Start 05/08/17 at 09:00 Cefepime HCl (Maxipime 1gm/50 ml (Pmx)) 50 ml @ 100 mls/hr Q24H IVPB Last administered on 05/17/17 17:38; Admin Dose 100 MLS/HR; Start 05/08/17 at 18:00 Vitamin B Complex/ Vitamin C (Berocca) 1 cap DAILY PO Last administered on 08:46; Admin Dose 1 CAP; Start 8/1/17 at 09:00 Nystatin (Nystatin Susp) 5 ml QID PO Last administered on 05/18/17 12:25; Admin Dose 5 ML; Start 05/12/17 at 17:00 Hydrocortisone (Solu-Cortef) 20 mg TID IV Last administered on 05/18/17 12:25; Admin Dose 20 MG; Start 05/17/17 at 09:30 Aspirin (Aspirin) 81 mg DAILY NGT ; Start 05/19/17 at 09:00 MARGOT WILLS NP May 18, 2017 14:03
[2017-05-18] MEDS: CEFEPIME 1GM/50 ML (PMX) 50 ML IVPB SCH (17:37)
--- NOTE | 2017-05-18 17:41 | CONS ---
Date/Time of Note Date/Time of Note DATE: 05/18/17 TIME: 17:40 Consult Date/Type/Reason Admit Date/Time Apr 11, 2017 at 11:28 Initial Consult Date 04/12/17 Type of Consultation: Pulm Ordering Provider: NINA MACIEL DO Subjective no events. Objective Vital Signs Date Time Temp Pulse Resp B/P Pulse Ox O2 Delivery O2 Flow Rate FiO2 05/18/17 17:21 66 05/18/17 16:03 99.0 16 159/73 98 05/18/17 15:39 30 Intake and Output 05/17/17 05/17/17 05/18/17 15:00 23:00 07:00 Intake Total 500 ml 1000 ml 1000 ml Output Total 4000 ml 450 ml 800 ml Balance -3500 ml 550 ml 200 ml Exam HEENT: Neck supple; no JVD; no LAD; trach site clean CVS: RRR, S1 and S2 CHEST: Clear ABD: Soft, NT, + BS EXT: No c/c + edema Results/Medications Result Diagram: 05/17/17 0520 05/17/17 0520 Results 24 hrs Laboratory Tests Test 05/18/17 06:39 05/18/17 12:19 Bedside Glucose 191 148 Medications Current Medications Metoprolol Tartrate (Lopressor) 5 mg Q4H PRN IV HR>110 Hold SBP<110 Last administered on 04/20/17 17:36; Admin Dose 5 MG; Start 04/11/17 at 13:30 Miscellaneous Information 1 ea NOTE XX ; Start 04/11/17 at 16:30 Glucose (Glutose) 15 gm Q15M PRN PO DECREASED GLUCOSE Last administered on 05/07 03:27; Admin Dose 15 GM; Start 04/11/17 at 16:30 Glucose (Glutose) 22.5 gm Q15M PRN PO DECREASED GLUCOSE; Start 04/11/17 at 16: 30 Dextrose (D50w Syringe) 25 ml Q15M PRN IV DECREASED GLUCOSE Last administered on 04/12/17 23:56; Admin Dose 25 ML; Start 04/11/17 at 16:30 Dextrose (D50w Syringe) 50 ml Q15M PRN IV DECREASED GLUCOSE; Start 04/11/17 at 16:30 Glucagon (Glucagen) 1 mg Q15M PRN IM DECREASED GLUCOSE; Start 04/11/17 at 16:30 Glucose (Glutose) 15 gm Q15M PRN BUCCAL DECREASED GLUCOSE; Start 04/11/17 at 16 :30 Metoclopramide HCl (Reglan) 10 mg Q6 IV Last administered on 05/18/17 12:25; Admin Dose 10 MG; Start 04/12/17 at 18:00 Insulin Aspart (Novolog Insulin Pen) NOVOLOG *MILD* ALGORI... Q6H SC Last administered on 05/18/17 12:27; Admin Dose 1 UNIT; Start 04/15/17 at 00:00 IV Flush (NS 10 ml) 10 ml PRN PRN IV FLUSH LINE; Start 04/15/17 at 13:00 Amiodarone HCl (Cordarone) 200 mg BID GTB Last administered on 05/18/17 08:46; Admin Dose 200 MG; Start 04/16/17 at 13:00 Heparin Sodium (Porcine) (Heparin (5000 Units/0.5 ml)) 5,000 unit BID SC Last administered on 04/30/17 21:03; Admin Dose 5,000 UNIT; Start 04/18/17 at 16:22; Status Future Hold Citalopram Hydrobromide (Celexa) 20 mg DAILY NGT Last administered on 05/18/17 08:45; Admin Dose 20 MG; Start 04/19/17 at 09:00 Hydralazine HCl (Apresoline) 20 mg Q6H PRN IV sbp ABOVE 160 Last administered on 05/14/17 19:01; Admin Dose 20 MG; Start 04/18/17 at 18:30 Chlorhexidine Gluconate (Peridex) 15 ml BID MT Last administered on 05/18/17 08 :46; Admin Dose 15 ML; Start 04/22/17 at 21:00 Vitamin A/Vitamin D (Vitamin A & D Oint) 1 applic TID TOP Last administered on 05/18/17 12:25; Admin Dose 1 APPLIC; Start 04/22/17 at 21:00 Vitamin A/Vitamin D (Vitamin A & D Oint) 1 applic TID PRN TOP DRYNESS Last administered on 04/22/17 15:29; Admin Dose 1 APPLIC; Start 04/22/17 at 15:00 Acetaminophen/ Hydrocodone Bitart ([place] (5/325)) 1 tab Q6H GTB Last administered on 05/18/17 15:31; Admin Dose 1 TAB; Start 04/22/17 at 21:30 Spironolactone (Aldactone) 25 mg DAILY NGT Last administered on 05/18/17 08:46 ; Admin Dose 25 MG; Start 04/25/17 at 19:00; Status Future hold Diltiazem HCl (Cardizem Iv) 5 mg Q1H PRN IV HEART RATE GREATER THAN 120 Last administered on 04/29/17 06:17; Admin Dose 5 MG; Start 04/29/17 at 05:00 Metronidazole 500 mg 500 mg Q8 GTB Last administered on 05/18/17 14:14; Admin Dose 500 MG; Start 04/30/17 at 22:00 Sodium Chloride 1,000 ml @ 0 mls/hr Q0M IV Last administered on 05/01/17 03: 00; Admin Dose 1,000 MLS/HR; Start 05/01/17 at 03:00 Sodium Chloride (NS) 1,000 ml @ 0 mls/hr Q0M IV Last administered on 04:00; Admin Dose 1,000 MLS/HR; Start 05/01/17 at 03:30 Pantoprazole 40 mg 40 mg BID@06,18 IV Last administered on 05/18/17 06:39; Admin Dose 40 MG; Start 05/02/17 at 15:00 Diltiazem HCl (Cardizem-D5W 125 Mg/125 ml Drip) 125 ml @ 5 mls/hr TITRATE IV Last administered on 05/02/17 19:11; Admin Dose 5 MLS/HR; Start 05/02/17 at 19: 00 Valacyclovir HCl (Valtrex) 1,000 mg DAILY GTB Last administered on 05/18/17 08: 46; Admin Dose 1,000 MG; Start 05/06/17 at 09:00 Metoprolol Tartrate (Lopressor) 25 mg QID GTB Last administered on 05/18/17 12: 25; Admin Dose 25 MG; Start 05/07/17 at 09:00 Furosemide 40 mg 40 mg Q12 IV Last administered on 05/18/17 08:47; Admin Dose 40 MG; Start 05/08/17 at 09:00 Cefepime HCl (Maxipime 1gm/50 ml (Pmx)) 50 ml @ 100 mls/hr Q24H IVPB Last administered on 05/17/17 17:38; Admin Dose 100 MLS/HR; Start 05/08/17 at 18:00 Vitamin B Complex/ Vitamin C (Berocca) 1 cap DAILY PO Last administered on 08:46; Admin Dose 1 CAP; Start 05/13/17 at 09:00 Nystatin (Nystatin Susp) 5 ml QID PO Last administered on 05/18/17 12:25; Admin Dose 5 ML; Start 05/12/17 at 17:00 Hydrocortisone (Solu-Cortef) 20 mg TID IV Last administered on 05/18/17 12:25; Admin Dose 20 MG; Start 05/17/17 at 09:30 Aspirin (Aspirin) 81 mg DAILY NGT ; Start 05/19/17 at 09:00 Assessment/Plan Chief Complaint/Hosp Course Briefly, this is a 66-year-old female with a history of chronic resp failure s/ p prolonged hospitalization and trach, recently decannulated ~ 3 weeks ago, dysphagia s/p PEG, admitted 2 days prior from SNF with severe septic shock requiring pressors and [facility]. Problems: Additional Assessment/Plan IMP: 1. VDRF 3. s/p Hypercapnic Respiratory Failure--likely due to critical illness myopathy/ neuropathy 4. s/p septic shock 5. Demand Ischemia 6. Cholecystitis 7. Encephalopathy toxic metabolic 8. Leukocytosis RECS: 1. Vent support 2. BDs 3. TFs/Free H2O MAUREEN COREA MD May 18, 2017 17:40
[2017-05-19] VITALS (32 sets, daily range): BP systolic 91–164; BP diastolic 45–68; PULSE 64–82; RESP 14–23
[2017-05-19] MEDS: METOCLOPRAMIDE 10 MG INJ IV SCH ×4 (01:03→17:59)
[2017-05-19] MEDS: LEVALBUTEROL (HFA) 15 GM INHALER INH SCH ×4 (01:10→19:23)
[2017-05-19] MEDS: HYDROCODONE/APAP (5/325) TAB GTB SCH ×4 (03:57→21:40)
[2017-05-19] MEDS: metroNIDAZOLE 500 MG TAB GTB SCH ×3 (05:16→21:43)
[2017-05-19] MEDS: PANTOPRAZOLE 40 MG INJ IV SCH ×2 (05:16→17:57)
[2017-05-19] MEDS: INSULIN ASPART [NOVOLOG] 3 ML PEN SC SCH ×4 (05:46→18:28)
[2017-05-19] MEDS: LEVOTHYROXINE 100 MCG TAB GTB SCH (06:12)
--- NOTE | 2017-05-19 09:17 | PN ---
DATE: 05/19/2017 SUBJECTIVE DATA: The patient is currently on hemodialysis. No other events noted overnight. No hemoptysis, hematemesis or hematochezia. Please note, I spoke with the patient's at bedside, who was informed of the possibility that his may require long-term dialysis. The patient's understood, but wanted to defer long-term dialysis catheter placement if possible. He was also requesting the possibility of weaning. I informed the patient's that I would speak with the sweet dough mixer. No other events noted. OBJECTIVE DATA: VITAL SIGNS: Blood pressure 130/67, respirations 16, pulse 67, temperature 98.1. HEENT: Head is normocephalic. NECK: Supple. HEART: Regular rate. LUNGS: Diminished breath sounds at the base. ABDOMEN: Soft, nontender to palpation. No rebound or guarding. EXTREMITIES: Negative for clubbing or cyanosis. Positive edema, +3 lower extremity. DERMATOLOGIC: No rashes. MUSCULOSKELETAL: No joint effusion. NEUROLOGIC: No change in exam. MEDICATIONS: Reviewed. LABORATORY AND DIAGNOSTIC DATA: Currently pending. ASSESSMENT AND PLAN: 1. Ventilator dependence failure. Vent settings reviewed. ABGs reviewed. Continue to monitor. Follow up with Pulmonary. 2. History of thyroid cancer with tracheomalacia. The patient is status post ENT evaluation. Appreciate recommendation. Continue to monitor. 3. Nonoliguric acute kidney injury on top of chronic kidney disease. Etiology of acute kidney injury secondary acute tubular necrosis. The patient is currently on intermittent dialysis. Appears to be dialysis dependent. The patient is scheduled for dialysis today. If there is no signs of renal recovery over the next 2-3 days, we will move toward Permacath placement and outpatient dialysis placement. 4. Volume overload secondary to acute kidney injury, congestive heart failure. Continue medical management. Continue ultrafiltration dialysis. 5. Sepsis, status post shock secondary to aspiration pneumonia, fungemia. The patient is completing antifungal antibiotic therapy. Follow up with Infectious Disease. 6. Adrenal insufficiency. Continue current steroid regimen. 7. Encephalopathy. The etiology is toxic metabolic. Continue to monitor. 8. Hypothyroidism. Continue Synthroid. 9. Anemia. Monitor H and H levels. The patient has no recurrent episodes of bleeding. 10. Mineral bone disorder. Continue to monitor calcium and phosphorus. 11. History of congestive heart failure. 12. Leukocytosis multifactorial secondary steroids, improving. 13. Left upper extremity deep vein thrombosis. Will continue to hold antiplatelets due to recent gastrointestinal bleed. 14. Dysphagia. Continue tube feeding. 15. Status post upper gastrointestinal bleed secondary to fundal ulcer. 16. Gastrointestinal and deep venous thrombosis prophylaxis. Continue PPI and sequential leg squeezers. Dictated By: Abebe Valderrama DO /marquita/vasiliy /Document#: [id number]
--- NOTE | 2017-05-19 10:15 | PN ---
Date/Time of Note Date/Time of Note DATE: 05/19/17 TIME: 10:09 Assessment/Plan Lines/Catheters IV Catheter Type (from [facility]): BHARTI CATH Latif in Place (from [facility]): Yes Assessment/Plan Chief Complaint/Hosp Course 1. Cholelithiasis: Tolerating tube feeds; no abdominal pain/discomfort; +bowel function -No surgical intervention required at this time 2. Pneumonia: Recurrent +sputum cultures; appears comfortable -pulmonary toilet -abx per ID -wean as tolerated 3. Vent dependent respiratory failure: 2/2 aspiration PNA+ CHF;reintubated and extubated, coded 04/21 and 05/01; comfortable on vent; eager to wean her off vent -as above 4. Septic Shock resolved 5. Uncontrolled Afib: s/p amiodarone drip, on oral amiodarone; episodes of Afib Now SR -medical optimization 6. Leukocytosis with lactic acidosis: 2/2 pneumonia +/- steroids vs.fungemia vs other (urine, repeat blood cultures negative); improving -abx, antifungals -supportive measures 7. Macrocytic anemia: chronic vs. dilutional vs. acute bleed vs. b12/folate deficiency; hh stable -monitor -Transfuse as needed 8. KEYONNA: likely 2/2 septic shock; with + urine output; HD; may need long tern HD per renal -judicious fluid management -avoid nephrotoxic agents 9. CHF: BNP elevated -judicious fluid management -medical optimization 10. Adrenal Insufficiency -solucortef 11. Oral lesions: improving 12. Hypothyroidism; tsh elevated -on synthroid 13. Encephalopathy: resolved -supportive 14. Bilateral upper extremity edema: likely 2/2 decreased movement vs. thrombosis; initial doppler negative, repeat doppler left arm (+) Thrombus -elevate extremities -supportive 15. Hypoalbuminemia: 2/2 malnutrition +/- inflammation; decreased; tolerating tf ; -nutrition optimization -as above 16. Hypocalcemia with hypoalbuminemia -optimize nutrition 17. Fungemia -antifungals 18. Electrolyte imbalance: (hyponatremia, hypokalemia) -electrolyte optimization Patient seen and examined in collaboration with Dr. Justus Antonio. Thank you Problems: Subjective 24 Hr Interval Summary HD ongoing. Tolerating tf + bowel function. No c/o n/v/d/dysuria. Comfortable on vent. would like to try to wean off vent as possible. No fevers, chills, cp, palpitations, sz, rash. Exam/Review of Systems Vital Signs Vitals Vital Signs Date Time Temp Pulse Resp B/P Pulse Ox O2 Delivery O2 Flow Rate FiO2 05/19/17 10:00 72 05/19/17 09:10 16 99 30 05/19/17 07:35 98.1 138/63 Intake and Output 05/18/17 05/18/17 05/19/17 15:00 23:00 07:00 Intake Total 1000 ml 1300 ml Output Total 400 ml 450 ml Balance 600 ml 850 ml Exam Free Text/Dictation Constitutional: fully awake, responsive Head: atraumatic, normocephalic Eyes: PERRL, nl lids, nl sclera ENMT: No mucosa pink and moist (pink and moist with healing perioral lesions) Neck: non-tender, supple, tracheostomy Respiratory: diminished, comfortable on vent Cardiovascular: nl pulses, regular rate and rhythm, Gastrointestinal: non distended, GT tubes site no erythema, no drainage, non tenderness, bowel sounds x 4 quads, soft; tf ongoing Genitourinary - Female: nl external genitalia Musculoskeletal: nl extremities to inspection Extremities: normal pulses, bilateral upper/lower extremity edema 3+; Neurological: responsive Skin: nl turgor, No rash or lesions Lymph: nl lymph nodes Results Result Diagram: 05/17/1751905/17/17519 ADDISON FREGOSO NP May 19, 2017 10:15
[2017-05-19] MEDS: HYDROCORTISONE 100 MG INJ IV SCH ×3 (11:03→20:21)
[2017-05-19] MEDS: CHLORHEXIDINE GLUCONATE 15 ML UD CUP MT SCH ×2 (11:03→20:40)
[2017-05-19] MEDS: CITALOPRAM 20 MG TAB NGT SCH (11:04)
[2017-05-19] MEDS: ASPIRIN 81 MG TAB NGT SCH (11:04)
[2017-05-19] MEDS: NYSTATIN SUSP 5 ML CUP PO SCH ×4 (11:04→20:40)
[2017-05-19] MEDS: VALACYCLOVIR 500 MG TAB GTB SCH (11:05)
[2017-05-19] MEDS: VITAMIN B COMPLEX/VIT C CAP PO SCH (11:05)
[2017-05-19] MEDS: SPIRONOLACTONE 25 MG TAB NGT SCH (11:05)
[2017-05-19] MEDS: VITAMIN A & D 5 GM OINT PACKET TOP SCH ×3 (11:05→20:21)
[2017-05-19] MEDS: COLISTIMETHATE (25 MG/ML INHAL SYG) NEB SCH ×2 (11:24→19:23)
[2017-05-19] MEDS: METOPROLOL 25 MG TAB GTB SCH ×4 (13:00→20:22)
[2017-05-19] MEDS: FUROSEMIDE 40 MG INJ IV SCH ×2 (13:11→20:22)
[2017-05-19] MEDS: EPOETIN 10000 UNITS/1 ML INJ (ESRD) SC SCH (13:12)
[2017-05-19] MEDS: AMIODARONE 200 MG TAB GTB SCH ×2 (13:13→20:22)
--- NOTE | 2017-05-19 15:00 | CONS ---
Date/Time of Note Date/Time of Note DATE: 05/19/17 TIME: 14:59 Consult Date/Type/Reason Admit Date/Time Apr 11, 2017 at 11:28 Initial Consult Date 04/12/17 Type of Consultation: Pulm Ordering Provider: NINA MACIEL DO Subjective Patient remains stable this morning no new events. Continues mechanical ventilation. at bedside. Objective Vital Signs Date Time Temp Pulse Resp B/P Pulse Ox O2 Delivery O2 Flow Rate FiO2 05/19/17 13:05 69 20 99 30 05/19/17 11:43 97.7 136/67 Intake and Output 05/18/17 05/18/17 05/19/17 15:00 23:00 07:00 Intake Total 1000 ml 1300 ml Output Total 400 ml 450 ml Balance 600 ml 850 ml Exam PHYSICAL EXAMINATION GENERAL: Elderly lady on mechanical ventilation via tracheostomy VITAL SIGNS: see below. HEENT: Pupils equal, round, and reactive to light. Tracheostomy site clean and intact. CARDIAC: S1, S2, 1/6 systolic ejection murmur CHEST: Diminished air entry bilaterally. ABDOMEN: Mildly distended. Bowel sounds present no guarding or rebound EXTREMITIES: No cyanosis, clubbing edema +1 NEUROLOGIC: Generalized weakness Results/Medications Result Diagram: 05/17/17 0520 05/17/17 0520 Results 24 hrs Laboratory Tests Test 05/18/17 17:31 05/19/17 01:06 05/19/17 05:27 05/19/17 13:07 Bedside Glucose 155 152 129 133 Medications Current Medications Metoprolol Tartrate (Lopressor) 5 mg Q4H PRN IV HR>110 Hold SBP<110 Last administered on 04/20/17 17:36; Admin Dose 5 MG; Start 04/11/17 at 13:30 Miscellaneous Information 1 ea NOTE XX ; Start 04/11/17 at 16:30 Glucose (Glutose) 15 gm Q15M PRN PO DECREASED GLUCOSE Last administered on 05/07 03:27; Admin Dose 15 GM; Start 04/11/17 at 16:30 Glucose (Glutose) 22.5 gm Q15M PRN PO DECREASED GLUCOSE; Start 04/11/17 at 16: 30 Dextrose (D50w Syringe) 25 ml Q15M PRN IV DECREASED GLUCOSE Last administered on 04/12/17 23:56; Admin Dose 25 ML; Start 04/11/17 at 16:30 Dextrose (D50w Syringe) 50 ml Q15M PRN IV DECREASED GLUCOSE; Start 04/11/17 at 16:30 Glucagon (Glucagen) 1 mg Q15M PRN IM DECREASED GLUCOSE; Start 04/11/17 at 16:30 Glucose (Glutose) 15 gm Q15M PRN BUCCAL DECREASED GLUCOSE; Start 04/11/17 at 16 :30 Metoclopramide HCl (Reglan) 10 mg Q6 IV Last administered on 05/19/17 13:11; Admin Dose 10 MG; Start 04/12/17 at 18:00 Insulin Aspart (Novolog Insulin Pen) NOVOLOG *MILD* ALGORI... Q6H SC Last administered on 05/18/17 17:40; Admin Dose 1 UNIT; Start 04/15/17 at 00:00 IV Flush (NS 10 ml) 10 ml PRN PRN IV FLUSH LINE; Start 04/15/17 at 13:00 Amiodarone HCl (Cordarone) 200 mg BID GTB Last administered on 05/19/17 13:13; Admin Dose 200 MG; Start 04/16/17 at 13:00 Heparin Sodium (Porcine) (Heparin (5000 Units/0.5 ml)) 5,000 unit BID SC Last administered on 04/30/17 21:03; Admin Dose 5,000 UNIT; Start 04/18/17 at 16:22; Status Future Hold Citalopram Hydrobromide (Celexa) 20 mg DAILY NGT Last administered on 05/19/17 11:04; Admin Dose 20 MG; Start 04/19/17 at 09:00 Hydralazine HCl (Apresoline) 20 mg Q6H PRN IV sbp ABOVE 160 Last administered on 05/14/17 19:01; Admin Dose 20 MG; Start 04/18/17 at 18:30 Chlorhexidine Gluconate (Peridex) 15 ml BID MT Last administered on 05/19/17 11 :03; Admin Dose 15 ML; Start 04/22/17 at 21:00 Vitamin A/Vitamin D (Vitamin A & D Oint) 1 applic TID TOP Last administered on 05/19/17 14:36; Admin Dose 1 APPLIC; Start 04/22/17 at 21:00 Vitamin A/Vitamin D (Vitamin A & D Oint) 1 applic TID PRN TOP DRYNESS Last administered on 04/22/17 15:29; Admin Dose 1 APPLIC; Start 04/22/17 at 15:00 Acetaminophen/ Hydrocodone Bitart ([place] (5/325)) 1 tab Q6H GTB Last administered on 05/19/17 11:08; Admin Dose 1 TAB; Start 04/22/17 at 21:30 Spironolactone (Aldactone) 25 mg DAILY NGT Last administered on 05/19/17 11:05 ; Admin Dose 25 MG; Start 04/25/17 at 19:00; Status Future hold Diltiazem HCl (Cardizem Iv) 5 mg Q1H PRN IV HEART RATE GREATER THAN 120 Last administered on 04/29/17 06:17; Admin Dose 5 MG; Start 04/29/17 at 05:00 Metronidazole 500 mg 500 mg Q8 GTB Last administered on 05/19/17 14:36; Admin Dose 500 MG; Start 04/30/17 at 22:00 Sodium Chloride 1,000 ml @ 0 mls/hr Q0M IV Last administered on 05/01/17 03: 00; Admin Dose 1,000 MLS/HR; Start 05/01/17 at 03:00 Sodium Chloride (NS) 1,000 ml @ 0 mls/hr Q0M IV Last administered on 04:00; Admin Dose 1,000 MLS/HR; Start 05/01/17 at 03:30 Pantoprazole 40 mg 40 mg BID@06,18 IV Last administered on 05/19/17 05:16; Admin Dose 40 MG; Start 05/02/17 at 15:00 Diltiazem HCl (Cardizem-D5W 125 Mg/125 ml Drip) 125 ml @ 5 mls/hr TITRATE IV Last administered on 05/02/17 19:11; Admin Dose 5 MLS/HR; Start 05/02/17 at 19: 00 Valacyclovir HCl (Valtrex) 1,000 mg DAILY GTB Last administered on 05/19/17 11: 05; Admin Dose 1,000 MG; Start 05/06/17 at 09:00 Metoprolol Tartrate (Lopressor) 25 mg QID GTB Last administered on 05/19/17 13: 13; Admin Dose 25 MG; Start 05/07/17 at 09:00 Furosemide 40 mg 40 mg Q12 IV Last administered on 05/19/17 13:11; Admin Dose 40 MG; Start 05/08/17 at 09:00 Cefepime HCl (Maxipime 1gm/50 ml (Pmx)) 50 ml @ 100 mls/hr Q24H IVPB Last administered on 05/18/17 17:37; Admin Dose 100 MLS/HR; Start 05/08/17 at 18:00 Vitamin B Complex/ Vitamin C (Berocca) 1 cap DAILY PO Last administered on 11:05; Admin Dose 1 CAP; Start 05/13/17 at 09:00 Nystatin (Nystatin Susp) 5 ml QID PO Last administered on 05/19/17 14:36; Admin Dose 5 ML; Start 05/12/17 at 17:00 Hydrocortisone (Solu-Cortef) 20 mg TID IV Last administered on 05/19/17 14:35; Admin Dose 20 MG; Start 05/17/17 at 09:30 Aspirin (Aspirin) 81 mg DAILY NGT Last administered on 05/19/17 11:04; Admin Dose 81 MG; Start 05/19/17 at 09:00 Assessment/Plan Chief Complaint/Hosp Course Additional Assessment/Plan IMP: 1. VDRF 3. s/p Hypercapnic Respiratory Failure--likely due to critical illness myopathy/ neuropathy 4. s/p septic shock 5. Demand Ischemia 6. Cholecystitis 7. Encephalopathy toxic metabolic 8. Leukocytosis RECS: 1. Vent support, trial of SIMV. 2. BDs 3. TFs/Free H2O Placement. Problems: DAR[facility]RAWFORD [facility] May 19, 2017 15:00
--- NOTE | 2017-05-19 17:09 | CONS ---
Date/Time of Note Date/Time of Note DATE: 05/19/17 TIME: 17:08 Consult Date/Type/Reason Admit Date/Time Apr 11, 2017 at 11:28 Initial Consult Date 04/12/17 Type of Consultation: cardiology Ordering Provider: NINA MACIEL DO Subjective CARDIOLOGY FOLLOW UP NOTE: D/W staff and rhythm was reviewed. pt remains in NSR. no afib overnight no chest pain or pressure or palpitations. pt still s/p trach on vent on tele. s/p transfusion on 05/14/17 Objective: General: s/p trach on vent HEENT: NC/AT. . oropharynx with multiple lesions. . NECK: NO JVD. no stridor. s/p trach on vent CV: RRR. systolic ejection murmur; no gallop or rubs. PULM: + mild rhonchi. no wheezes. GI: SOFT, NT, ND, no rebound or guarding s/p PEG Extremity: 1-2+ B/L LE edema. no clubbing. neuro: sleepy. Psych: calm rectal: deferred Derm: multiple echymosis : S/P mims catheter in place. Objective Vital Signs Date Time Temp Pulse Resp B/P Pulse Ox O2 Delivery O2 Flow Rate FiO2 05/19/17 16:41 73 05/19/17 16:15 14 99 30 05/19/17 16:05 99.1 164/61 Intake and Output 05/18/17 05/18/17 05/19/17 15:00 23:00 07:00 Intake Total 1000 ml 1300 ml Output Total 400 ml 450 ml Balance 600 ml 850 ml Results/Medications Result Diagram: 05/17/17 0520 05/17/17 0520 Results 24 hrs Laboratory Tests Test 05/18/17 17:31 05/19/17 01:06 05/19/17 05:27 05/19/17 13:07 Bedside Glucose 155 152 129 133 Medications Current Medications Metoprolol Tartrate (Lopressor) 5 mg Q4H PRN IV HR>110 Hold SBP<110 Last administered on 04/20/17t 17:36; Admin Dose 5 MG; Start 04/11/17 at 13:30 Miscellaneous Information 1 ea NOTE XX ; Start 04/11/17 at 16:30 Glucose (Glutose) 15 gm Q15M PRN PO DECREASED GLUCOSE Last administered on 05/07 03:27; Admin Dose 15 GM; Start 04/11/17 at 16:30 Glucose (Glutose) 22.5 gm Q15M PRN PO DECREASED GLUCOSE; Start 04/11/17 at 16: 30 Dextrose (D50w Syringe) 25 ml Q15M PRN IV DECREASED GLUCOSE Last administered on 04/12/17 23:56; Admin Dose 25 ML; Start 04/11/17 at 16:30 Dextrose (D50w Syringe) 50 ml Q15M PRN IV DECREASED GLUCOSE; Start 04/11/17 at 16:30 Glucagon (Glucagen) 1 mg Q15M PRN IM DECREASED GLUCOSE; Start 04/11/17 at 16:30 Glucose (Glutose) 15 gm Q15M PRN BUCCAL DECREASED GLUCOSE; Start 04/11/17 at 16 :30 Metoclopramide HCl (Reglan) 10 mg Q6 IV Last administered on 05/19/17 13:11; Admin Dose 10 MG; Start 04/12/17 at 18:00 Insulin Aspart (Novolog Insulin Pen) NOVOLOG *MILD* ALGORI... Q6H SC Last administered on 05/18/17 17:40; Admin Dose 1 UNIT; Start 04/15/17 at 00:00 IV Flush (NS 10 ml) 10 ml PRN PRN IV FLUSH LINE; Start 04/15/17 at 13:00 Amiodarone HCl (Cordarone) 200 mg BID GTB Last administered on 05/19/17 13:13; Admin Dose 200 MG; Start 04/16/17 at 13:00 Heparin Sodium (Porcine) (Heparin (5000 Units/0.5 ml)) 5,000 unit BID SC Last administered on 04/30/17 21:03; Admin Dose 5,000 UNIT; Start 04/18/17 at 16:22; Status Future Hold Citalopram Hydrobromide (Celexa) 20 mg DAILY NGT Last administered on 05/19/17 11:04; Admin Dose 20 MG; Start 04/19/17 at 09:00 Hydralazine HCl (Apresoline) 20 mg Q6H PRN IV sbp ABOVE 160 Last administered on 05/14/17 19:01; Admin Dose 20 MG; Start 04/18/17 at 18:30 Chlorhexidine Gluconate (Peridex) 15 ml BID MT Last administered on 05/19/17 11 :03; Admin Dose 15 ML; Start 04/22/17 at 21:00 Vitamin A/Vitamin D (Vitamin A & D Oint) 1 applic TID TOP Last administered on 05/19/17 14:36; Admin Dose 1 APPLIC; Start 04/22/17 at 21:00 Vitamin A/Vitamin D (Vitamin A & D Oint) 1 applic TID PRN TOP DRYNESS Last administered on 04/22/17 15:29; Admin Dose 1 APPLIC; Start 04/22/17 at 15:00 Acetaminophen/ Hydrocodone Bitart ([place] (5/325)) 1 tab Q6H GTB Last administered on 05/19/17 11:08; Admin Dose 1 TAB; Start 04/22/17 at 21:30 Spironolactone (Aldactone) 25 mg DAILY NGT Last administered on 05/19/17 11:05 ; Admin Dose 25 MG; Start 04/25/17 at 19:00; Status Future hold Diltiazem HCl (Cardizem Iv) 5 mg Q1H PRN IV HEART RATE GREATER THAN 120 Last administered on 04/29/17 06:17; Admin Dose 5 MG; Start 04/29/17 at 05:00 Metronidazole 500 mg 500 mg Q8 GTB Last administered on 05/19/17 14:36; Admin Dose 500 MG; Start 04/30/17 at 22:00 Sodium Chloride 1,000 ml @ 0 mls/hr Q0M IV Last administered on 05/01/17 03: 00; Admin Dose 1,000 MLS/HR; Start 05/01/17 at 03:00 Sodium Chloride (NS) 1,000 ml @ 0 mls/hr Q0M IV Last administered on 04:00; Admin Dose 1,000 MLS/HR; Start 05/01/17 at 03:30 Pantoprazole 40 mg 40 mg BID@06,18 IV Last administered on 05/19/17 05:16; Admin Dose 40 MG; Start 05/02/17 at 15:00 Diltiazem HCl (Cardizem-D5W 125 Mg/125 ml Drip) 125 ml @ 5 mls/hr TITRATE IV Last administered on 05/02/17 19:11; Admin Dose 5 MLS/HR; Start 05/02/17 at 19: 00 Valacyclovir HCl (Valtrex) 1,000 mg DAILY GTB Last administered on 05/19/17 11: 05; Admin Dose 1,000 MG; Start 05/06/17 at 09:00 Metoprolol Tartrate (Lopressor) 25 mg QID GTB Last administered on 05/19/17 13: 13; Admin Dose 25 MG; Start 05/07/17 at 09:00 Furosemide 40 mg 40 mg Q12 IV Last administered on 05/19/17 13:11; Admin Dose 40 MG; Start 05/08/17 at 09:00 Cefepime HCl (Maxipime 1gm/50 ml (Pmx)) 50 ml @ 100 mls/hr Q24H IVPB Last administered on 05/18/17 17:37; Admin Dose 100 MLS/HR; Start 05/08/17 at 18:00 Vitamin B Complex/ Vitamin C (Berocca) 1 cap DAILY PO Last administered on 11:05; Admin Dose 1 CAP; Start 05/13/17 at 09:00 Nystatin (Nystatin Susp) 5 ml QID PO Last administered on 05/19/17 14:36; Admin Dose 5 ML; Start 05/12/17 at 17:00 Hydrocortisone (Solu-Cortef) 20 mg TID IV Last administered on 05/19/17 14:35; Admin Dose 20 MG; Start 05/17/17 at 09:30 Aspirin (Aspirin) 81 mg DAILY NGT Last administered on 05/19/17 11:04; Admin Dose 81 MG; Start 05/19/17 at 09:00 Assessment/Plan Chief Complaint/Hosp Course 1. acute on chronic hypoxemic respiratory failure: 2. NSTEMI: due to demand ischemia. 3. CHF/ fluid overload: due to diastolic heart failure 4. moderate 5. Arrhythmia and P afib, frequent PVC: currently in NSR. 6. ANEMIA: s/p multiple transfusion 7. s/p pneumonia, . 8. s/p sepsis and shock: BP is stable now. 9. Anasarca 10. s/p cardiopulm arrest due to resp failure 11. renal failure on HD now. 12. coagulopathy Rec: cont resp care as per PULM Team. correct lytes prn. CONT betablocker as tolerated. . cont thyroid supplement . cont tele monitoring HD/ ultrafiltration as per renal. transfuse prn lpw dose ASA 81 mg only due to recurrent anemia. THANK YOU. Problems: FRANCISCO BLACKWOOD MD May 19, 2017 17:09
[2017-05-19] MEDS: CEFEPIME 1GM/50 ML (PMX) 50 ML IVPB SCH (17:58)
--- NOTE | 2017-05-19 22:58 | CONS ---
Date/Time of Note Date/Time of Note DATE: 05/19/17 TIME: 22:50 Assessment/Plan Assessment/Plan Chief Complaint/Hosp Course ID PROGRESS NOTE CURRENT ABX=> Flagyl, + Cefepime #10+ Colistin INH #10 => dc ABX Tonight * She has completed a 10 day course for PNA/sepsis Valtrex,-> DC 05/17 Cancidas -> DC 05/10 Merrem -> DC'd 05/08 Merrem #14 total -> DC'd 04/26=> Restarted 24H INTERVAL SUMMARY/HOSPITAL COURSE * Sleeping, no fevers, VSS, no new issues PHYSICAL EXAMINATION: GENERAL: 66 yo F, stable on the Vent HEENT: Atraumatic, (+)Lip crusting lesions healing NECK: (+)Trach in place secure to VENT CHEST: Rise symmetrical w/coarse BS, scattered rales/rhonchi ABDOMEN: Soft, peg EXTREMITIES: Warm, moves extremities ID ASSESSMENT: 66 yo F w/PMHx tongue cancer, chronic trach re-admit H from SNF with: 1. s/p Acute severe sepsis/shock on admission w/(+)fever, tachycardia, lactic acidosis, leukocytosis, (+)troponin leak = RESOLVING * Leukocytosis persisting -> IV Steroids onboard * Fungemia => repeat BCx negative 2. Anasarca w/increased facial edema/bilateral lip edema w/resolving HSV lip lesions resolving * -- facial edema is worse due to patient preference while sitting up to lean her head forward w/neck flexion over her trach/trach-tie -- this position compromised jugular venous return. 3. Acute respiratory failure = recurrent issue s/p intubation x3rd episode w/ extubation, now with Trach secure to Vent 3. HCAP=> Recurrent Aspiration PNA post emesis // Hx of GNR tracheobronchitis * Sputum 04/21/17 (+)Yeast * Sputum 05/06/17 (+)PSAR 4. Acute CHF w/elevated BNP 8000 in setting tachycardia, sepsis, pulmonary edema on CXR 5. s/p Nausea w/emesis on admission -> RESOLVED * Query: DM Autonomic Gastroparesis * GERD 6. Cholelithiasis w/dilated CBD->HIDA scan (+cholecystitis 04/12/17=> s/p Mansi Drain 04/17/17, no surgery per GI 7. Acute renal failure = started on HD 8. Dysphagia sp PEG placement 9. Paroxysmal Afib 10. NSTEMI in setting sepsis, tachycardia, acute hypoxic respiratory failure, acute CHF exacerbation 11. Elevated glucose - iatrogenic diabetes while on IV steroids 12. Leukocytosis = partial steroids demargination 13. Lip lesions => consistent w/herpes simplex virus outbreak -> On Valtrex HEALING 14. s/p GIB associates with Acute on chronic anemia secondary to AVM ==> stopped , status post EGD on May 02 with injection of epinephrine 15. Recent (+)C.Diff on 03/07/16 (treated) w/(-)C.Diff 03/20/17 (-) MRSA Nares screen (04/03/17) INVASIVES: Trach, PEG, FC, R-FEM Amrit (05/04/17) ABX ALLERGY: Iodine CURRENT ABX=>Flagyl, + Cefepime #10+ Colistin INH #10 => dc ABX Tonight * She has completed a 10 day course for PNA/sepsis Valtrex,-> DC 05/17 Cancidas -> DC 05/10 Merrem -> DC'd 05/08 Merrem #14 total -> DC'd 04/26=> Restarted ID PLAN=> => dc ABX Tonight 1. Continue Nystain PO oral swish spit + Vit B/C complex -- lip/mouth lesions healing 2. Monitor her OFF ABX 3. Repeat micro PRN Temp >101.5 and/or other clinical indicators . . Problems: Consultation Date/Type/Reason Admit Date/Time Apr 11, 2017 at 11:28 Initial Consult Date 04/11/17 Type of Consultation: ID Referring Provider: NINA MACIEL DO Exam/Review of Systems Vital Signs Vitals Vital Signs Date Time Temp Pulse Resp B/P Pulse Ox O2 Delivery O2 Flow Rate FiO2 05/19/17 21:20 71 05/19/17 19:58 98.6 20 117/66 99 05/19/17 16:15 30 Intake and Output 05/18/17 05/18/17 05/19/17 15:00 23:00 07:00 Intake Total 1000 ml 1300 ml Output Total 400 ml 450 ml Balance 600 ml 850 ml Results Result Diagram: 05/17/17 0505/17/17 05 Results 24 hrs Laboratory Tests Test 05/19/17 01:06 05/19/17 05:27 05/19/17 13:07 05/19/17 18:21 Bedside Glucose 152 129 133 161 Medications Medications Current Medications Metoprolol Tartrate (Lopressor) 5 mg Q4H PRN IV HR>110 Hold SBP<110 Last administered on 04/20/17 17:36; Admin Dose 5 MG; Start 04/11/17 at 13:30 Miscellaneous Information 1 ea NOTE XX ; Start 04/11/17 at 16:30 Glucose (Glutose) 15 gm Q15M PRN PO DECREASED GLUCOSE Last administered on 05/07 03:27; Admin Dose 15 GM; Start 04/11/17 at 16:30 Glucose (Glutose) 22.5 gm Q15M PRN PO DECREASED GLUCOSE; Start 04/11/17 at 16: 30 Dextrose (D50w Syringe) 25 ml Q15M PRN IV DECREASED GLUCOSE Last administered on 04/12/17 23:56; Admin Dose 25 ML; Start 04/11/17 at 16:30 Dextrose (D50w Syringe) 50 ml Q15M PRN IV DECREASED GLUCOSE; Start 04/11/17 at 16:30 Glucagon (Glucagen) 1 mg Q15M PRN IM DECREASED GLUCOSE; Start 04/11/17 at 16:30 Glucose (Glutose) 15 gm Q15M PRN BUCCAL DECREASED GLUCOSE; Start 04/11/17 at 16 :30 Metoclopramide HCl (Reglan) 10 mg Q6 IV Last administered on 05/19/17 17:59; Admin Dose 10 MG; Start 04/12/17 at 18:00 Insulin Aspart (Novolog Insulin Pen) NOVOLOG *MILD* ALGORI... Q6H SC Last administered on 05/19/17 18:28; Admin Dose 1 UNIT; Start 04/15/17 at 00:00 IV Flush (NS 10 ml) 10 ml PRN PRN IV FLUSH LINE; Start 04/15/17 at 13:00 Amiodarone HCl (Cordarone) 200 mg BID GTB Last administered on 05/19/17 20:22; Admin Dose 200 MG; Start 04/16/17 at 13:00 Heparin Sodium (Porcine) (Heparin (5000 Units/0.5 ml)) 5,000 unit BID SC Last administered on 04/30/17 21:03; Admin Dose 5,000 UNIT; Start 04/18/17 at 16:22; Status Future Hold Citalopram Hydrobromide (Celexa) 20 mg DAILY NGT Last administered on 05/19/17 11:04; Admin Dose 20 MG; Start 04/19/17 at 09:00 Hydralazine HCl (Apresoline) 20 mg Q6H PRN IV sbp ABOVE 160 Last administered on 05/14/17 19:01; Admin Dose 20 MG; Start 04/18/17 at 18:30 Chlorhexidine Gluconate (Peridex) 15 ml BID MT Last administered on 05/19/17 11 :03; Admin Dose 15 ML; Start 04/22/17 at 21:00 Vitamin A/Vitamin D (Vitamin A & D Oint) 1 applic TID TOP Last administered on 05/19/17 20:21; Admin Dose 1 APPLIC; Start 04/22/17 at 21:00 Vitamin A/Vitamin D (Vitamin A & D Oint) 1 applic TID PRN TOP DRYNESS Last administered on 04/22/17 15:29; Admin Dose 1 APPLIC; Start 04/22/17 at 15:00 Acetaminophen/ Hydrocodone Bitart ([place] (5/325)) 1 tab Q6H GTB Last administered on 05/19/17 21:40; Admin Dose 1 TAB; Start 04/22/17 at 21:30 Spironolactone (Aldactone) 25 mg DAILY NGT Last administered on 05/19/17 11:05 ; Admin Dose 25 MG; Start 04/25/17 at 19:00; Status Future hold Diltiazem HCl (Cardizem Iv) 5 mg Q1H PRN IV HEART RATE GREATER THAN 120 Last administered on 04/29/17 06:17; Admin Dose 5 MG; Start 04/29/17 at 05:00 Metronidazole 500 mg 500 mg Q8 GTB Last administered on 05/19/17 21:43; Admin Dose 500 MG; Start 04/30/17 at 22:00 Sodium Chloride 1,000 ml @ 0 mls/hr Q0M IV Last administered on 05/01/17 03: 00; Admin Dose 1,000 MLS/HR; Start 05/01/17 at 03:00 Sodium Chloride (NS) 1,000 ml @ 0 mls/hr Q0M IV Last administered on 04:00; Admin Dose 1,000 MLS/HR; Start 05/01/17 at 03:30 Pantoprazole 40 mg 40 mg BID@06,18 IV Last administered on 05/19/17 17:57; Admin Dose 40 MG; Start 05/02/17 at 15:00 Diltiazem HCl (Cardizem-D5W 125 Mg/125 ml Drip) 125 ml @ 5 mls/hr TITRATE IV Last administered on 05/02/17 19:11; Admin Dose 5 MLS/HR; Start 05/02/17 at 19: 00 Valacyclovir HCl (Valtrex) 1,000 mg DAILY GTB Last administered on 05/19/17 11: 05; Admin Dose 1,000 MG; Start 05/06/17 at 09:00 Metoprolol Tartrate (Lopressor) 25 mg QID GTB Last administered on 05/19/17 20: 22; Admin Dose 25 MG; Start 05/07/17 at 09:00 Furosemide 40 mg 40 mg Q12 IV Last administered on 05/19/17 20:22; Admin Dose 40 MG; Start 05/08/17 at 09:00 Cefepime HCl (Maxipime 1gm/50 ml (Pmx)) 50 ml @ 100 mls/hr Q24H IVPB Last administered on 05/19/17 17:58; Admin Dose 100 MLS/HR; Start 05/08/17 at 18:00 Vitamin B Complex/ Vitamin C (Berocca) 1 cap DAILY PO Last administered on 11:05; Admin Dose 1 CAP; Start 05/13/17 at 09:00 Nystatin (Nystatin Susp) 5 ml QID PO Last administered on 05/19/17 17:57; Admin Dose 5 ML; Start 05/12/17 at 17:00 Hydrocortisone (Solu-Cortef) 20 mg TID IV Last administered on 05/19/17 20:21; Admin Dose 20 MG; Start 05/17/17 at 09:30 Aspirin (Aspirin) 81 mg DAILY NGT Last administered on 05/19/17t 11:04; Admin Dose 81 MG; Start 05/19/17 at 09:00 MARGOT WILLS NP May 19, 2017 22:58
[2017-05-20] VITALS (25 sets, daily range): BP systolic 124–154; BP diastolic 63–76; PULSE 68–73; RESP 16–24
[2017-05-20] MEDS: METOCLOPRAMIDE 10 MG INJ IV SCH ×5 (00:15→23:44)
[2017-05-20] MEDS: INSULIN ASPART [NOVOLOG] 3 ML PEN SC SCH ×5 (00:19→23:42)
[2017-05-20] MEDS: LEVALBUTEROL (HFA) 15 GM INHALER INH SCH ×4 (01:14→21:00)
[2017-05-20] MEDS: HYDROCODONE/APAP (5/325) TAB GTB SCH ×4 (03:44→20:56)
[2017-05-20] MEDS: metroNIDAZOLE 500 MG TAB GTB SCH ×3 (05:57→21:27)
[2017-05-20] MEDS: PANTOPRAZOLE 40 MG INJ IV SCH (05:57)
[2017-05-20] MEDS: LEVOTHYROXINE 100 MCG TAB GTB SCH (06:06)
[2017-05-20 07:57] LABS: BASOPHILS % 0.2 % (0.0-2.0); EOSINOPHILS # 0.1 10^3/ul (0.0-0.5); EOSINOPHILS % 0.7 % (0.0-7.0); HEMATOCRIT 29.6 % (37.0-47.0); HEMOGLOBIN 9.9 g/dl (12.0-16.0); LYMPHOCYTES # 1.4 10^3/ul (0.8-2.9); LYMPHOCYTES % 10.7 % (15.0-51.0); MEAN CORPUSCULAR HEMOGLOBIN 30.8 pg (29.0-33.0); MEAN CORPUSCULAR HGB CONC 33.4 g/dl (32.0-37.0); MEAN CORPUSCULAR VOLUME 92.2 fl (82.0-101.0); MEAN PLATELET VOLUME 10.5 fl (7.4-10.4); MONOCYTE # 1.3 10^3/ul (0.3-0.9); MONOCYTES % 10.2 % (0.0-11.0); NEUTROPHIL # 9.8 10^3/ul (1.6-7.5); NEUTROPHILS % 74.3 % (39.0-77.0); NUCLEATED RED BLOOD CELLS% 0.2 /100WBC (0.0-0.0); PLATELET COUNT 166 10^3/UL (140-415); RED BLOOD COUNT 3.21 10^6/ul (4.20-5.40); RED CELL DISTRIBUTION WIDTH 18.7 % (11.5-14.5); WHITE BLOOD COUNT 13.2 10^3/ul (4.8-10.8)
[2017-05-20 08:25] LABS: CALCIUM 8.1 mg/dl (8.4-10.2); CREATININE 1.59 mg/dl (0.44-1.00); MAGNESIUM 2.1 mg/dl (1.7-2.5); PHOSPHORUS 2.9 mg/dl (2.5-4.9); POTASSIUM 3.3 mmol/L (3.5-5.1)
--- NOTE | 2017-05-20 08:59 | PN ---
DATE: 05/20/2017 SUBJECTIVE DATA: The patient had hemodialysis yesterday 2 L removed. No other events noted. No fevers, chills, nausea, vomiting. OBJECTIVE DATA: VITAL SIGNS: Blood pressure 130/67, respirations, pulse 72, temperature 98.4. HEENT: Head is normocephalic. Neck shows trach. HEART: Regular rate. LUNGS: Diminished breath sounds at the base. ABDOMEN: Soft, nontender to palpation. No rebound or guarding. EXTREMITIES: Negative for clubbing, cyanosis. Positive edema. DERMATOLOGIC: Clean. No rashes. MUSCULOSKELETAL: No joint effusion. NEUROLOGIC: No change in exam. MEDICATIONS: Reviewed. LABORATORY AND DIAGNOSTIC DATA: BMP is currently pending. The patient's TSH was 19. White count 13.2, hemoglobin 9.9, hematocrit 29.6, platelet count is 166,000. ASSESSMENT AND PLAN: 1. Non-ventilator dependent respiratory failure. Vent settings reviewed. The patient is currently on SIMV trial. 2. History of thyroid cancer with tracheomalacia. The patient is status post ENT evaluation. Continue to monitor. 3. Nonoliguric acute kidney injury on top of chronic kidney disease. Etiology secondary acute tubular necrosis. The patient is currently on intermittent dialysis. Plan is to hold dialysis for next 1-2 days to see if there are any signs of renal recovery. If there are no signs of renal recovery we will proceed towards Permacath placement and arrange for outpatient hemodialysis. 4. Volume overload secondary to acute kidney injury, congestive heart failure. Continue medical management. Continue diuretic therapy. 5. Sepsis status post shock, secondary to aspiration pneumonia, fungemia. The patient is status post antifungal therapy. Completing course of antibiotics. Follow Infectious Disease. 6. Adrenal insufficiency. Continue current steroid regimen. 7. Encephalopathy. Etiology is toxic metabolic. Continue to monitor. 8. Hypothyroidism. The patient's TSH levels are elevated. Continue Synthroid. 9. Anemia. Monitor H and H levels. 10. Mineral bone disorder. Monitor calcium and phosphorus levels. 11. History of congestive heart failure. Continue medical management. 12. Leukocytosis. Etiology is multifactorial, secondary to steroids, improved. Continue to monitor. 13. Left upper extremity deep vein thrombosis. Continue to monitor. Hold antiplatelets due to recent gastrointestinal bleed. 14. Dysphagia. Continue tube feeding. 15. Status post upper gastrointestinal bleed secondary to gastric ulcer. Continue PPI. 16. Gastrointestinal and deep venous thrombosis prophylaxis. Continue PPI and sequential leg squeezers. Please note, I discussed case with the patient's at bedside as well as Pulmonary. Dictated By: Abebe Valderrama DO /[email or web address] /Document#: [id number]
[2017-05-20] MEDS: ASPIRIN 81 MG TAB NGT SCH (09:00)
[2017-05-20] MEDS: VITAMIN A & D 5 GM OINT PACKET TOP SCH ×3 (10:01→20:53)
[2017-05-20] MEDS: HYDROCORTISONE 100 MG INJ IV SCH ×3 (10:01→20:45)
[2017-05-20] MEDS: FUROSEMIDE 40 MG INJ IV SCH ×2 (10:01→20:51)
[2017-05-20] MEDS: CHLORHEXIDINE GLUCONATE 15 ML UD CUP MT SCH ×2 (10:01→20:45)
[2017-05-20] MEDS: AMIODARONE 200 MG TAB GTB SCH ×2 (10:02→20:51)
[2017-05-20] MEDS: NYSTATIN SUSP 5 ML CUP PO SCH ×4 (10:02→20:45)
[2017-05-20] MEDS: VITAMIN B COMPLEX/VIT C CAP PO SCH (10:02)
[2017-05-20] MEDS: METOPROLOL 25 MG TAB GTB SCH ×4 (10:03→20:51)
[2017-05-20] MEDS: SPIRONOLACTONE 25 MG TAB NGT SCH (10:03)
[2017-05-20] MEDS: CITALOPRAM 20 MG TAB NGT SCH (10:04)
--- NOTE | 2017-05-20 14:25 | CONS ---
Date/Time of Note Date/Time of Note DATE: 05/20/17 TIME: 14:18 Assessment/Plan Assessment/Plan Chief Complaint/Hosp Course Assessment/Plan Chief Complaint/Hosp Course ID PROGRESS NOTE CURRENT ABX=> Flagyl, + Cefepime #9+ Colistin INH #8 * She is completing a 10 day course of ABX for Sputum 05/06/17 (+)PSAR ASP PNA , s/p sepsis in ICU Valtrex,-> DC 05/17 Cancidas -> DC 05/10 Merrem -> DC'd 05/08 Merrem #14 total -> DC'd 04/26=> Restarted 24H INTERVAL SUMMARY/HOSPITAL COURSE 1. Awake. Alert. Denies any complains. PHYSICAL EXAMINATION: GENERAL: 66 yo F, stable on the Vent HEENT: Atraumatic, (+)Lip crusting lesions healing NECK: (+)Trach in place secure to VENT CHEST: Rise symmetrical w/coarse BS, scattered rales/rhonchi ABDOMEN: Soft, peg EXTREMITIES: Warm, moves extremities ID ASSESSMENT: 66 yo F w/PMHx tongue cancer, chronic trach re-admit H from SNF with: 1. s/p Acute severe sepsis/shock on admission w/(+)fever, tachycardia, lactic acidosis, leukocytosis, (+)troponin leak = RESOLVING * Leukocytosis persisting -> IV Steroids onboard * Fungemia => repeat BCx negative 2. Anasarca w/increased facial edema/bilateral lip edema w/resolving HSV lip lesions resolving * -- facial edema is worse due to patient preference while sitting up to lean her head forward w/neck flexion over her trach/trach-tie -- this position compromised jugular venous return. 3. Acute respiratory failure = recurrent issue s/p intubation x3rd episode w/ extubation, now with Trach secure to Vent 3. HCAP=> Recurrent Aspiration PNA post emesis // Hx of GNR tracheobronchitis * Sputum 04/21/17 (+)Yeast * Sputum 05/06/17 (+)PSAR 4. Acute CHF w/elevated BNP 8000 in setting tachycardia, sepsis, pulmonary edema on CXR 5. s/p Nausea w/emesis on admission -> RESOLVED * Query: DM Autonomic Gastroparesis * GERD 6. Cholelithiasis w/dilated CBD->HIDA scan (+cholecystitis 04/12/17=> s/p Mansi Drain 04/17/17, no surgery per GI 7. Acute renal failure = started on HD 8. Dysphagia sp PEG placement 9. Paroxysmal Afib 10. NSTEMI in setting sepsis, tachycardia, acute hypoxic respiratory failure, acute CHF exacerbation 11. Elevated glucose - iatrogenic diabetes while on IV steroids 12. Leukocytosis = partial steroids demargination 13. Lip lesions => consistent w/herpes simplex virus outbreak -> On Valtrex HEALING 14. s/p GIB associates with Acute on chronic anemia secondary to AVM ==> stopped , status post EGD on May 02 with injection of epinephrine 15. Recent (+)C.Diff on 03/07/16 (treated) w/(-)C.Diff 03/20/17 (-) MRSA Nares screen (04/03/17) INVASIVES: Trach, PEG, FC, R-FEM Amrit (05/04/17) ABX ALLERGY: Iodine CURRENT ABX=> Flagyl, + Cefepime #9+ Colistin INH #8 Valtrex,-> DC 05/17 Cancidas -> DC 05/10 Merrem -> DC'd 05/08 Merrem #14 total -> DC'd 04/26=> Restarted ID PLAN=> She is completing a 10 day course of ABX for Sputum 05/06/17 (+)PSAR ASP PNA , s/p sepsis in ICU 1. Continue Valtrex until lip lesions healed, continue empiric Flagyl while on ABX for PSAR PNA * Continue current ABX --PSAR is sensitive to Cefepime + Colistin INH 2. Hx of C.Diff-> Keep on Flagyl while PSAR Trach decolonization ABX completed 3. Added Nystain PO oral swish spit + Vit B/C complex -- lip/mouth lesions healing 4. GI Prophylaxis. DVT Prophylaxis. Monitor Labs. Problems: Consultation Date/Type/Reason Admit Date/Time Apr 11, 2017 at 11:28 Initial Consult Date 05/01/17 Type of Consultation: ID Referring Provider: NINA MACIEL DO Exam/Review of Systems Vital Signs Vitals Vital Signs Date Time Temp Pulse Resp B/P Pulse Ox O2 Delivery O2 Flow Rate FiO2 05/20/17 12:35 68 05/20/17 11:59 97.9 16 134/69 100 05/20/17 11:05 35 Intake and Output 05/19/17 05/19/17 05/20/17 15:00 23:00 07:00 Intake Total 200 ml 1350 ml Output Total 2300 ml 850 ml Balance -2100 ml 500 ml Results Result Diagram: 05/20/17 0750 05/20/17 0750 Results 24 hrs Laboratory Tests Test 05/19/17 18:21 05/20/17 00:18 05/20/17 05:59 05/20/17 07:50 Bedside Glucose 161 142 153 White Blood Count 13.2 H Red Blood Count 3.21 L Hemoglobin 9.9 L Hematocrit 29.6 L Mean Corpuscular Volume 92.2 Mean Corpuscular Hemoglobin 30.8 Mean Corpuscular Hemoglobin Concent 33.4 Red Cell Distribution Width 18.7 H Platelet Count 166 # Mean Platelet Volume 10.5 H Neutrophils % 74.3 Lymphocytes % 10.7 L Monocytes % 10.2 Eosinophils % 0.7 Basophils % 0.2 Nucleated Red Blood Cells % 0.2 H Neutrophils # 9.8 H Lymphocytes # 1.4 Monocytes # 1.3 H Eosinophils # 0.1 Basophils # 0.0 Nucleated Red Blood Cells # 0.0 Sodium Level 136 Potassium Level 3.3 L Chloride Level 93 L Carbon Dioxide Level 33 H Anion Gap 13 Blood Urea Nitrogen 70 H Creatinine 1.59 H Glucose Level 105 Calcium Level 8.1 L Phosphorus Level 2.9 Magnesium Level 2.1 Test 05/20/17 12:20 Bedside Glucose 103 Medications Medications Current Medications Metoprolol Tartrate (Lopressor) 5 mg Q4H PRN IV HR>110 Hold SBP<110 Last administered on 04/20/17 17:36; Admin Dose 5 MG; Start 04/11/17 at 13:30 Miscellaneous Information 1 ea NOTE XX ; Start 04/11/17 at 16:30 Glucose (Glutose) 15 gm Q15M PRN PO DECREASED GLUCOSE Last administered on 05/07 03:27; Admin Dose 15 GM; Start 04/11/17 at 16:30 Glucose (Glutose) 22.5 gm Q15M PRN PO DECREASED GLUCOSE; Start 04/11/17 at 16: 30 Dextrose (D50w Syringe) 25 ml Q15M PRN IV DECREASED GLUCOSE Last administered on 04/12/17 23:56; Admin Dose 25 ML; Start 04/11/17 at 16:30 Dextrose (D50w Syringe) 50 ml Q15M PRN IV DECREASED GLUCOSE; Start 04/11/17 at 16:30 Glucagon (Glucagen) 1 mg Q15M PRN IM DECREASED GLUCOSE; Start 04/11/17 at 16:30 Glucose (Glutose) 15 gm Q15M PRN BUCCAL DECREASED GLUCOSE; Start 04/11/17 at 16 :30 Metoclopramide HCl (Reglan) 10 mg Q6 IV Last administered on 05/20/17 14:12; Admin Dose 10 MG; Start 04/12/17 at 18:00 Insulin Aspart (Novolog Insulin Pen) NOVOLOG *MILD* ALGORI... Q6H SC Last administered on 05/20/17 06:03; Admin Dose 1 UNIT; Start 04/15/17 at 00:00 IV Flush (NS 10 ml) 10 ml PRN PRN IV FLUSH LINE; Start 04/15/17 at 13:00 Amiodarone HCl (Cordarone) 200 mg BID GTB Last administered on 05/20/17 10:02; Admin Dose 200 MG; Start 04/16/17 at 13:00 Heparin Sodium (Porcine) (Heparin (5000 Units/0.5 ml)) 5,000 unit BID SC Last administered on 04/30/17 21:03; Admin Dose 5,000 UNIT; Start 04/18/17 at 16:22; Status Future Hold Citalopram Hydrobromide (Celexa) 20 mg DAILY NGT Last administered on 05/20/17 10:04; Admin Dose 20 MG; Start 04/19/17 at 09:00 Hydralazine HCl (Apresoline) 20 mg Q6H PRN IV sbp ABOVE 160 Last administered on 05/14/17 19:01; Admin Dose 20 MG; Start 04/18/17 at 18:30 Chlorhexidine Gluconate (Peridex) 15 ml BID MT Last administered on 05/20/17 10 :01; Admin Dose 15 ML; Start 04/22/17 at 21:00 Vitamin A/Vitamin D (Vitamin A & D Oint) 1 applic TID TOP Last administered on 05/20/17 14:14; Admin Dose 1 APPLIC; Start 04/22/17 at 21:00 Vitamin A/Vitamin D (Vitamin A & D Oint) 1 applic TID PRN TOP DRYNESS Last administered on 04/22/17 15:29; Admin Dose 1 APPLIC; Start 04/22/17 at 15:00 Acetaminophen/ Hydrocodone Bitart ([place] (5/325)) 1 tab Q6H GTB Last administered on 05/20/17 10:03; Admin Dose 1 TAB; Start 04/22/17 at 21:30 Spironolactone (Aldactone) 25 mg DAILY NGT Last administered on 05/20/17 10:03 ; Admin Dose 25 MG; Start 04/25/17 at 19:00; Status Future hold Diltiazem HCl (Cardizem Iv) 5 mg Q1H PRN IV HEART RATE GREATER THAN 120 Last administered on 04/29/17 06:17; Admin Dose 5 MG; Start 04/29/17 at 05:00 Metronidazole 500 mg 500 mg Q8 GTB Last administered on 05/20/17 14:13; Admin Dose 500 MG; Start 04/30/17 at 22:00 Sodium Chloride 1,000 ml @ 0 mls/hr Q0M IV Last administered on 05/01/17 03: 00; Admin Dose 1,000 MLS/HR; Start 05/01/17 at 03:00 Sodium Chloride 1,000 ml @ 0 mls/hr Q0M IV Last administered on 05/01/17 04: 00; Admin Dose 1,000 MLS/HR; Start 05/01/17 at 03:30 Diltiazem HCl (Cardizem-D5W 125 Mg/125 ml Drip) 125 ml @ 5 mls/hr TITRATE IV Last administered on 05/02/17 19:11; Admin Dose 5 MLS/HR; Start 05/02/17 at 19: 00 Metoprolol Tartrate (Lopressor) 25 mg QID GTB Last administered on 05/20/17 14: 13; Admin Dose 25 MG; Start 05/07/17 at 09:00 Furosemide (Lasix) 40 mg Q12 IV Last administered on 05/20/17 10:01; Admin Dose 40 MG; Start 05/08/17 at 09:00 Vitamin B Complex/ Vitamin C (Berocca) 1 cap DAILY PO Last administered on 10:02; Admin Dose 1 CAP; Start 05/13/17 at 09:00 Nystatin (Nystatin Susp) 5 ml QID PO Last administered on 05/20/17 14:13; Admin Dose 5 ML; Start 05/12/17 at 17:00 Hydrocortisone (Solu-Cortef) 20 mg TID IV Last administered on 05/20/17 14:12; Admin Dose 20 MG; Start 05/17/17 at 09:30 Aspirin (Aspirin) 81 mg DAILY NGT Last administered on 05/20/17 09:00; Admin Dose 81 MG; Start 05/19/17 at 09:00 Lansoprazole (Prevacid) 30 mg BID@06,18 GTB ; Start 05/20/17 at 18:00 DOUG GARCES NP May 20, 2017 14:25
--- NOTE | 2017-05-20 14:25 | CONS ---
Date/Time of Note Date/Time of Note DATE: 05/20/17 TIME: 14:24 Consult Date/Type/Reason Admit Date/Time Apr 11, 2017 at 11:28 Initial Consult Date 04/12/17 Type of Consultation: CARDIOLOGY Ordering Provider: NINA MACIEL DO Subjective CARDIOLOGY FOLLOW UP NOTE: D/W D/W staff and rhythm was reviewed. pt remains in NSR. no afib overnight no chest pain or pressure or palpitations. pt still s/p trach on vent on tele. s/p transfusion on 05/14/17 Objective: General: s/p trach on vent HEENT: NC/AT. . oropharynx with multiple lesions. . NECK: NO JVD. no stridor. s/p trach on vent CV: RRR. systolic ejection murmur; no gallop or rubs. PULM: + mild rhonchi. no wheezes. GI: SOFT, NT, ND, no rebound or guarding s/p PEG Extremity: 1-2+ B/L LE edema. no clubbing. neuro: awake and alert . responds appropriately. Psych: calm rectal: deferred Derm: multiple echymosis : S/P mims catheter in place. Objective Vital Signs Date Time Temp Pulse Resp B/P Pulse Ox O2 Delivery O2 Flow Rate FiO2 05/20/17 12:35 68 05/20/17 11:59 97.9 16 134/69 100 05/20/17 11:05 35 Intake and Output 05/19/17 05/19/17 05/20/17 15:00 23:00 07:00 Intake Total 200 ml 1350 ml Output Total 2300 ml 850 ml Balance -2100 ml 500 ml Results/Medications Result Diagram: 05/20/17 0750 05/20/17 0750 Results 24 hrs Laboratory Tests Test 05/19/17 18:21 05/20/17 00:18 05/20/17 05:59 05/20/17 07:50 Bedside Glucose 161 142 153 White Blood Count 13.2 H Red Blood Count 3.21 L Hemoglobin 9.9 L Hematocrit 29.6 L Mean Corpuscular Volume 92.2 Mean Corpuscular Hemoglobin 30.8 Mean Corpuscular Hemoglobin Concent 33.4 Red Cell Distribution Width 18.7 H Platelet Count 166 # Mean Platelet Volume 10.5 H Neutrophils % 74.3 Lymphocytes % 10.7 L Monocytes % 10.2 Eosinophils % 0.7 Basophils % 0.2 Nucleated Red Blood Cells % 0.2 H Neutrophils # 9.8 H Lymphocytes # 1.4 Monocytes # 1.3 H Eosinophils # 0.1 Basophils # 0.0 Nucleated Red Blood Cells # 0.0 Sodium Level 136 Potassium Level 3.3 L Chloride Level 93 L Carbon Dioxide Level 33 H Anion Gap 13 Blood Urea Nitrogen 70 H Creatinine 1.59 H Glucose Level 105 Calcium Level 8.1 L Phosphorus Level 2.9 Magnesium Level 2.1 Test 05/20/17 12:20 Bedside Glucose 103 Medications Current Medications Metoprolol Tartrate (Lopressor) 5 mg Q4H PRN IV HR>110 Hold SBP<110 Last administered on 04/20/17 17:36; Admin Dose 5 MG; Start 04/11/17 at 13:30 Miscellaneous Information 1 ea NOTE XX ; Start 04/11/17 at 16:30 Glucose (Glutose) 15 gm Q15M PRN PO DECREASED GLUCOSE Last administered on 05/07 03:27; Admin Dose 15 GM; Start 04/11/17 at 16:30 Glucose (Glutose) 22.5 gm Q15M PRN PO DECREASED GLUCOSE; Start 04/11/17 at 16: 30 Dextrose (D50w Syringe) 25 ml Q15M PRN IV DECREASED GLUCOSE Last administered on 04/12/17 23:56; Admin Dose 25 ML; Start 04/11/17 at 16:30 Dextrose (D50w Syringe) 50 ml Q15M PRN IV DECREASED GLUCOSE; Start 04/11/17 at 16:30 Glucagon (Glucagen) 1 mg Q15M PRN IM DECREASED GLUCOSE; Start 04/11/17 at 16:30 Glucose (Glutose) 15 gm Q15M PRN BUCCAL DECREASED GLUCOSE; Start 04/11/17 at 16 :30 Metoclopramide HCl (Reglan) 10 mg Q6 IV Last administered on 05/20/17 14:12; Admin Dose 10 MG; Start 04/12/17 at 18:00 Insulin Aspart (Novolog Insulin Pen) NOVOLOG *MILD* ALGORI... Q6H SC Last administered on 05/20/17 06:03; Admin Dose 1 UNIT; Start 04/15/17 at 00:00 IV Flush (NS 10 ml) 10 ml PRN PRN IV FLUSH LINE; Start 04/15/17 at 13:00 Amiodarone HCl (Cordarone) 200 mg BID GTB Last administered on 05/20/17 10:02; Admin Dose 200 MG; Start 04/16/17 at 13:00 Heparin Sodium (Porcine) (Heparin (5000 Units/0.5 ml)) 5,000 unit BID SC Last administered on 04/30/17 21:03; Admin Dose 5,000 UNIT; Start 04/18/17 at 16:22; Status Future Hold Citalopram Hydrobromide (Celexa) 20 mg DAILY NGT Last administered on 05/20/17 10:04; Admin Dose 20 MG; Start 04/19/17 at 09:00 Hydralazine HCl (Apresoline) 20 mg Q6H PRN IV sbp ABOVE 160 Last administered on 05/14/17 19:01; Admin Dose 20 MG; Start 04/18/17 at 18:30 Chlorhexidine Gluconate (Peridex) 15 ml BID MT Last administered on 05/20/17 10 :01; Admin Dose 15 ML; Start 04/22/17 at 21:00 Vitamin A/Vitamin D (Vitamin A & D Oint) 1 applic TID TOP Last administered on 05/20/17 14:14; Admin Dose 1 APPLIC; Start 04/22/17 at 21:00 Vitamin A/Vitamin D (Vitamin A & D Oint) 1 applic TID PRN TOP DRYNESS Last administered on 04/22/17 15:29; Admin Dose 1 APPLIC; Start 04/22/17 at 15:00 Acetaminophen/ Hydrocodone Bitart ([place] (5/325)) 1 tab Q6H GTB Last administered on 05/20/17 10:03; Admin Dose 1 TAB; Start 04/22/17 at 21:30 Spironolactone (Aldactone) 25 mg DAILY NGT Last administered on 05/20/17 10:03 ; Admin Dose 25 MG; Start 04/25/17 at 19:00; Status Future hold Diltiazem HCl (Cardizem Iv) 5 mg Q1H PRN IV HEART RATE GREATER THAN 120 Last administered on 04/29/17 06:17; Admin Dose 5 MG; Start 04/29/17 at 05:00 Metronidazole 500 mg 500 mg Q8 GTB Last administered on 05/20/17 14:13; Admin Dose 500 MG; Start 04/30/17 at 22:00 Sodium Chloride 1,000 ml @ 0 mls/hr Q0M IV Last administered on 05/01/17 03: 00; Admin Dose 1,000 MLS/HR; Start 05/01/17 at 03:00 Sodium Chloride 1,000 ml @ 0 mls/hr Q0M IV Last administered on 05/01/17 04: 00; Admin Dose 1,000 MLS/HR; Start 05/01/17 at 03:30 Diltiazem HCl (Cardizem-D5W 125 Mg/125 ml Drip) 125 ml @ 5 mls/hr TITRATE IV Last administered on 05/02/17 19:11; Admin Dose 5 MLS/HR; Start 05/02/17 at 19: 00 Metoprolol Tartrate (Lopressor) 25 mg QID GTB Last administered on 05/20/17 14: 13; Admin Dose 25 MG; Start 05/07/17 at 09:00 Furosemide (Lasix) 40 mg Q12 IV Last administered on 05/20/17 10:01; Admin Dose 40 MG; Start 05/08/17 at 09:00 Vitamin B Complex/ Vitamin C (Berocca) 1 cap DAILY PO Last administered on 10:02; Admin Dose 1 CAP; Start 05/13/17 at 09:00 Nystatin (Nystatin Susp) 5 ml QID PO Last administered on 05/20/17 14:13; Admin Dose 5 ML; Start 05/12/17 at 17:00 Hydrocortisone (Solu-Cortef) 20 mg TID IV Last administered on 05/20/17 14:12; Admin Dose 20 MG; Start 05/17/17 at 09:30 Aspirin (Aspirin) 81 mg DAILY NGT Last administered on 05/20/17 09:00; Admin Dose 81 MG; Start 05/19/17 at 09:00 Lansoprazole (Prevacid) 30 mg BID@06,18 GTB ; Start 05/20/17 at 18:00 Assessment/Plan Chief Complaint/Hosp Course 1. acute on chronic hypoxemic respiratory failure: 2. NSTEMI: due to demand ischemia. 3. CHF/ fluid overload: due to diastolic heart failure 4. moderate 5. Arrhythmia and P afib, frequent PVC: currently in NSR. 6. ANEMIA: s/p multiple transfusion 7. s/p pneumonia, . 8. s/p sepsis and shock: BP is stable now. 9. Anasarca 10. s/p cardiopulm arrest due to resp failure 11. renal failure on HD now. 12. coagulopathy Rec: cont resp care as per PULM Team. correct lytes prn. CONT betablocker as tolerated. . cont thyroid supplement . cont tele monitoring HD/ ultrafiltration will be deferred to renal. transfuse prn low dose ASA 81 mg only due to recurrent anemia. THANK YOU. Problems: FRANCISCO BLACKWOOD MD May 20, 2017 14:25
--- NOTE | 2017-05-20 16:14 | CONS ---
Date/Time of Note Date/Time of Note DATE: 05/20/17 TIME: 16:13 Consult Date/Type/Reason Admit Date/Time Apr 11, 2017 at 11:28 Initial Consult Date 04/12/17 Type of Consultation: Pulmonary Ordering Provider: NINA MACIEL DO Subjective Stable this afternoon no new events. Tolerating SIMV. Awake alert and oriented. Hemodialysis on hold. at bedside. Objective Vital Signs Date Time Temp Pulse Resp B/P Pulse Ox O2 Delivery O2 Flow Rate FiO2 05/20/17 15:30 68 21 99 35 05/20/17 15:19 98.1 133/66 Intake and Output 05/19/17 05/19/17 05/20/17 14:59 22:59 06:59 Intake Total 200 ml 1350 ml Output Total 2300 ml 850 ml Balance -2100 ml 500 ml Exam PHYSICAL EXAMINATION GENERAL: Elderly lady on mechanical ventilation via tracheostomy VITAL SIGNS: see below. HEENT: Pupils equal, round, and reactive to light. Tracheostomy site clean and intact. CARDIAC: S1, S2, 1/6 systolic ejection murmur CHEST: Diminished air entry bilaterally. ABDOMEN: Mildly distended. Bowel sounds present no guarding or rebound EXTREMITIES: No cyanosis, clubbing edema +1 NEUROLOGIC: Generalized weakness Results/Medications Result Diagram: 05/20/17 0750 05/20/17 0750 Results 24 hrs Laboratory Tests Test 05/19/17 18:21 05/20/17 00:18 05/20/17 05:59 05/20/17 07:50 Bedside Glucose 161 142 153 White Blood Count 13.2 H Red Blood Count 3.21 L Hemoglobin 9.9 L Hematocrit 29.6 L Mean Corpuscular Volume 92.2 Mean Corpuscular Hemoglobin 30.8 Mean Corpuscular Hemoglobin Concent 33.4 Red Cell Distribution Width 18.7 H Platelet Count 166 # Mean Platelet Volume 10.5 H Neutrophils % 74.3 Lymphocytes % 10.7 L Monocytes % 10.2 Eosinophils % 0.7 Basophils % 0.2 Nucleated Red Blood Cells % 0.2 H Neutrophils # 9.8 H Lymphocytes # 1.4 Monocytes # 1.3 H Eosinophils # 0.1 Basophils # 0.0 Nucleated Red Blood Cells # 0.0 Sodium Level 136 Potassium Level 3.3 L Chloride Level 93 L Carbon Dioxide Level 33 H Anion Gap 13 Blood Urea Nitrogen 70 H Creatinine 1.59 H Glucose Level 105 Calcium Level 8.1 L Phosphorus Level 2.9 Magnesium Level 2.1 Test 05/20/17 12:20 Bedside Glucose 103 Medications Current Medications Metoprolol Tartrate (Lopressor) 5 mg Q4H PRN IV HR>110 Hold SBP<110 Last administered on 04/20/17 17:36; Admin Dose 5 MG; Start 04/11/17 at 13:30 Miscellaneous Information 1 ea NOTE XX ; Start 04/11/17 at 16:30 Glucose (Glutose) 15 gm Q15M PRN PO DECREASED GLUCOSE Last administered on 05/07 03:27; Admin Dose 15 GM; Start 04/11/17 at 16:30 Glucose (Glutose) 22.5 gm Q15M PRN PO DECREASED GLUCOSE; Start 04/11/17 at 16: 30 Dextrose (D50w Syringe) 25 ml Q15M PRN IV DECREASED GLUCOSE Last administered on 04/12/17 23:56; Admin Dose 25 ML; Start 04/11/17 at 16:30 Dextrose (D50w Syringe) 50 ml Q15M PRN IV DECREASED GLUCOSE; Start 04/11/17 at 16:30 Glucagon (Glucagen) 1 mg Q15M PRN IM DECREASED GLUCOSE; Start 04/11/17 at 16:30 Glucose (Glutose) 15 gm Q15M PRN BUCCAL DECREASED GLUCOSE; Start 04/11/17 at 16 :30 Metoclopramide HCl (Reglan) 10 mg Q6 IV Last administered on 05/20/17 14:12; Admin Dose 10 MG; Start 04/12/17 at 18:00 Insulin Aspart (Novolog Insulin Pen) NOVOLOG *MILD* ALGORI... Q6H SC Last administered on 05/20/17 06:03; Admin Dose 1 UNIT; Start 04/15/17 at 00:00 IV Flush (NS 10 ml) 10 ml PRN PRN IV FLUSH LINE; Start 04/15/17 at 13:00 Amiodarone HCl (Cordarone) 200 mg BID GTB Last administered on 05/20/17 10:02; Admin Dose 200 MG; Start 04/16/17 at 13:00 Heparin Sodium (Porcine) (Heparin (5000 Units/0.5 ml)) 5,000 unit BID SC Last administered on 04/30/17 21:03; Admin Dose 5,000 UNIT; Start 04/18/17 at 16:22; Status Future Hold Citalopram Hydrobromide (Celexa) 20 mg DAILY NGT Last administered on 05/20/17 10:04; Admin Dose 20 MG; Start 04/19/17 at 09:00 Hydralazine HCl (Apresoline) 20 mg Q6H PRN IV sbp ABOVE 160 Last administered on 05/14/17 19:01; Admin Dose 20 MG; Start 04/18/17 at 18:30 Chlorhexidine Gluconate (Peridex) 15 ml BID MT Last administered on 05/20/17 10 :01; Admin Dose 15 ML; Start 04/22/17 at 21:00 Vitamin A/Vitamin D (Vitamin A & D Oint) 1 applic TID TOP Last administered on 05/20/17 14:14; Admin Dose 1 APPLIC; Start 04/22/17 at 21:00 Vitamin A/Vitamin D (Vitamin A & D Oint) 1 applic TID PRN TOP DRYNESS Last administered on 04/22/17 15:29; Admin Dose 1 APPLIC; Start 04/22/17 at 15:00 Acetaminophen/ Hydrocodone Bitart ([place] (5/325)) 1 tab Q6H GTB Last administered on 05/20/17 10:03; Admin Dose 1 TAB; Start 04/22/17 at 21:30 Spironolactone (Aldactone) 25 mg DAILY NGT Last administered on 05/20/17 10:03 ; Admin Dose 25 MG; Start 04/25/17 at 19:00; Status Future hold Diltiazem HCl (Cardizem Iv) 5 mg Q1H PRN IV HEART RATE GREATER THAN 120 Last administered on 04/29/17 06:17; Admin Dose 5 MG; Start 04/29/17 at 05:00 Metronidazole 500 mg 500 mg Q8 GTB Last administered on 05/20/17 14:13; Admin Dose 500 MG; Start 04/30/17 at 22:00 Sodium Chloride 1,000 ml @ 0 mls/hr Q0M IV Last administered on 05/01/17 03: 00; Admin Dose 1,000 MLS/HR; Start 05/01/17 at 03:00 Sodium Chloride 1,000 ml @ 0 mls/hr Q0M IV Last administered on 05/01/17 04: 00; Admin Dose 1,000 MLS/HR; Start 05/01/17 at 03:30 Diltiazem HCl (Cardizem-D5W 125 Mg/125 ml Drip) 125 ml @ 5 mls/hr TITRATE IV Last administered on 05/02/17 19:11; Admin Dose 5 MLS/HR; Start 05/02/17 at 19: 00 Metoprolol Tartrate (Lopressor) 25 mg QID GTB Last administered on 05/20/17 14: 13; Admin Dose 25 MG; Start 05/07/17 at 09:00 Furosemide (Lasix) 40 mg Q12 IV Last administered on 05/20/17 10:01; Admin Dose 40 MG; Start 05/08/17 at 09:00 Vitamin B Complex/ Vitamin C (Berocca) 1 cap DAILY PO Last administered on 10:02; Admin Dose 1 CAP; Start 05/13/17 at 09:00 Nystatin (Nystatin Susp) 5 ml QID PO Last administered on 05/20/17 14:13; Admin Dose 5 ML; Start 05/12/17 at 17:00 Hydrocortisone (Solu-Cortef) 20 mg TID IV Last administered on 05/20/17 14:12; Admin Dose 20 MG; Start 05/17/17 at 09:30 Aspirin (Aspirin) 81 mg DAILY NGT Last administered on 05/20/17 09:00; Admin Dose 81 MG; Start 05/19/17 at 09:00 Lansoprazole (Prevacid) 30 mg BID@06,18 GTB ; Start 05/20/17 at 18:00 Assessment/Plan Chief Complaint/Hosp Course Additional Assessment/Plan IMP: 1. VDRF 3. s/p Hypercapnic Respiratory Failure--likely due to critical illness myopathy/ neuropathy 4. s/p septic shock 5. Demand Ischemia 6. Cholecystitis 7. Encephalopathy toxic metabolic 8. Leukocytosis RECS: 1. Vent support, trial of SIMV. We will decrease SIMV support. 2. BDs 3. TFs/Free H2O 4. Hemodialysis on hold Placement. Problems: DARWIN CRAWFORD MD, [facility] May 20, 2017 16:14
[2017-05-20] MEDS: LANSOPRAZOLE 30 MG CAP GTB SCH (17:19)
--- NOTE | 2017-05-20 23:12 | PN ---
Date/Time of Note Date/Time of Note DATE: 05/20/17 TIME: 22:51 Assessment/Plan Lines/Catheters IV C[facility] Type (from [facility]): marguerite Cath Latif in Place (from [facility]): Yes Assessment/Plan Chief Complaint/Hosp Course 1. Cholelithiasis: Tolerating tube feeds; no abdominal pain/discomfort; +bowel function -No surgical intervention required at this time 2. Pneumonia: Recurrent +sputum cultures; appears comfortable -pulmonary toilet -abx per ID -wean as tolerated 3. Vent dependent respiratory failure: 2/2 aspiration PNA+ CHF;reintubated and extubated, coded 04/21 and 05/01; comfortable on vent; eager to wean her off vent, on SIMV currently -as above 4. Septic Shock resolved 5. Uncontrolled Afib: s/p amiodarone drip, on oral amiodarone; episodes of Afib Now SR -medical optimization 6. Leukocytosis with lactic acidosis: 2/2 pneumonia +/- steroids vs.fungemia vs other (urine, repeat blood cultures negative); improving -abx, antifungals -supportive measures 7. Macrocytic anemia: chronic vs. dilutional vs. acute bleed vs. b12/folate deficiency; hh stable -monitor -Transfuse as needed 8. KEYONNA: likely 2/2 septic shock; with + urine output; HD prn; may need long tern HD per renal -judicious fluid management -avoid nephrotoxic agents 9. CHF: BNP elevated -judicious fluid management -medical optimization 10. Adrenal Insufficiency -solucortef 11. Oral lesions: improving 12. Hypothyroidism; tsh elevated -on synthroid 13. Encephalopathy: resolved -supportive 14. Bilateral upper extremity edema: likely 2/2 decreased movement vs. thrombosis; initial doppler negative, repeat doppler left arm (+) Thrombus -elevate extremities -supportive 15. Hypoalbuminemia: 2/2 malnutrition +/- inflammation; decreased; tolerating tf ; -nutrition optimization -as above 16. Hypocalcemia with hypoalbuminemia -optimize nutrition 17. Fungemia -antifungals 18. Electrolyte imbalance: (hyponatremia, hypokalemia) -electrolyte optimization Patient seen and examined in collaboration with Dr. Justus Antonio. Thank you Problems: Subjective 24 Hr Interval Summary feeling well. awake responsive. attempting to wean off vent, SIMV. no fevers chills, headache, dizziness, chest pain, palpitations, nausea, vomiting, diarrhea, dysuria. tolerating tf. +bowel function. Exam/Review of Systems Vital Signs Vitals Vital Signs Date Time Temp Pulse Resp B/P Pulse Ox O2 Delivery O2 Flow Rate FiO2 05/21/17 07:43 71 22 99 35 05/21/17 04:00 98.2 131/63 Intake and Output 05/20/17 05/20/17 05/21/17 14:59 22:59 06:59 Intake Total 1200 ml 1250 ml Output Total 650 ml 900 ml Balance 550 ml 350 ml Exam Free Text/Dictation Constitutional: fully awake, responsive, pleasant Head: atraumatic, normocephalic Eyes: PERRL, nl lids, nl sclera ENMT: No mucosa pink and moist (pink and moist with healing perioral lesions) Neck: non-tender, supple, tracheostomy Respiratory: diminished, comfortable on vent Cardiovascular: nl pulses, regular rate and rhythm, Gastrointestinal: non distended, GT tubes site no erythema, no drainage, non tenderness, bowel sounds x 4 quads, soft; tf ongoing Genitourinary - Female: nl external genitalia Musculoskeletal: nl extremities to inspection Extremities: normal pulses, bilateral upper/lower extremity edema 3+; Neurological: responsive Skin: nl turgor, No rash or lesions Lymph: nl lymph nodes Results Result Diagram: 05/20/17 07505/20/17 0750 ADDISON FREGOSO NP May 20, 2017 23:01
[2017-05-21] VITALS (23 sets, daily range): BP systolic 116–183; BP diastolic 56–118; PULSE 68–78; RESP 2–24
[2017-05-21] MEDS: LEVALBUTEROL (HFA) 15 GM INHALER INH SCH ×4 (01:06→20:15)
[2017-05-21] MEDS: HYDROCODONE/APAP (5/325) TAB GTB SCH ×4 (03:30→21:01)
[2017-05-21] MEDS: metroNIDAZOLE 500 MG TAB GTB SCH ×3 (05:03→21:02)
[2017-05-21] MEDS: INSULIN ASPART [NOVOLOG] 3 ML PEN SC SCH ×4 (05:03→23:12)
[2017-05-21] MEDS: LANSOPRAZOLE 30 MG CAP GTB SCH ×2 (05:03→17:05)
[2017-05-21] MEDS: METOCLOPRAMIDE 10 MG INJ IV SCH ×4 (05:03→23:10)
[2017-05-21] MEDS: LEVOTHYROXINE 100 MCG TAB GTB SCH (07:00)
--- NOTE | 2017-05-21 08:53 | PN ---
Date/Time of Note Date/Time of Note DATE: 05/21/17 TIME: 08:49 Assessment/Plan Lines/Catheters IV C[facility]ter Type (from [facility]): marguerite Cath Latif in Place (from [facility]): Yes Assessment/Plan Chief Complaint/Hosp Course 1. Cholelithiasis: Tolerating tube feeds; no abdominal pain/discomfort/bloating ; +bowel function -No surgical intervention required at this time 2. Pneumonia: Recurrent +sputum cultures; appears comfortable, min sputum -pulmonary toilet -abx per ID -wean as tolerated 3. Vent dependent respiratory failure: 2/2 aspiration PNA+ CHF;reintubated and extubated, coded 04/21 and 05/01; comfortable on vent; eager to wean her off vent, on SIMV -as above 4. Septic Shock resolved 5. Uncontrolled Afib: s/p amiodarone drip, on oral amiodarone; episodes of Afib Now SR -medical optimization 6. Leukocytosis with lactic acidosis: 2/2 pneumonia +/- steroids vs.fungemia vs other (urine, repeat blood cultures negative); improving -abx, antifungals -supportive measures 7. Macrocytic anemia: chronic vs. dilutional vs. acute bleed vs. b12/folate deficiency; hh stable -monitor -Transfuse as needed 8. KEYONNA: likely 2/2 septic shock; with + urine output; HD prn; may need care home HD per renal -judicious fluid management -avoid nephrotoxic agents 9. CHF: BNP elevated -judicious fluid management -medical optimization 10. Adrenal Insufficiency -solucortef 11. Oral lesions: improving 12. Hypothyroidism; tsh elevated -on synthroid 13. Encephalopathy: resolved -supportive 14. Bilateral upper extremity edema: likely 2/2 decreased movement vs. thrombosis; initial doppler negative, repeat doppler left arm (+) Thrombus -elevate extremities -supportive 15. Hypoalbuminemia: 2/2 malnutrition +/- inflammation; decreased; tolerating tf ; -nutrition optimization -as above 16. Hypocalcemia with hypoalbuminemia -optimize nutrition 17. Fungemia -antifungals 18. Electrolyte imbalance: (hyponatremia, hypokalemia) -electrolyte optimization Patient seen and examined in collaboration with Dr. Justus Antonio. Thank you Problems: Subjective 24 Hr Interval Summary Upset today but awake and responsive. comfortable on vent. On SIMV. No c/o pain , abd discomfort or distention. + bowel function. No fevers, chills, diaphoresis , n/v/d/dysuria. Exam/Review of Systems Vital Signs Vitals Vital Signs Date Time Temp Pulse Resp B/P Pulse Ox O2 Delivery O2 Flow Rate FiO2 05/21/17 07:43 71 22 99 35 05/21/17 04:00 98.2 131/63 Intake and Output 05/20/17 05/20/17 05/21/17 14:59 22:59 06:59 Intake Total 1200 ml 1250 ml Output Total 650 ml 900 ml Balance 550 ml 350 ml Exam Free Text/Dictation Constitutional: fully awake, responsive, upset today Head: atraumatic, normocephalic Eyes: PERRL, nl lids, nl sclera ENMT: No mucosa pink and moist (pink and moist with healing perioral lesions) Neck: non-tender, supple, tracheostomy Respiratory: diminished, comfortable on vent, min sputum Cardiovascular: nl pulses, regular rate and rhythm, Gastrointestinal: non distended, GT tubes site no erythema, no drainage, non tenderness, bowel sounds x 4 quads, soft; tf ongoing Genitourinary - Female: nl external genitalia Musculoskeletal: nl extremities to inspection Extremities: normal pulses, bilateral upper/lower extremity edema 1+; EVELIA 2+; edema much improved Neurological: responsive Skin: nl turgor, No rash or lesions Lymph: nl lymph nodes Results Result Diagram: 05/20/17 0750 05/20/17 075 ADDISON FREGOSO NP May 21, 2017 08:53
--- NOTE | 2017-05-21 08:54 | CONS ---
Date/Time of Note Date/Time of Note DATE: 05/21/17 TIME: 08:52 Consult Date/Type/Reason Admit Date/Time Apr 11, 2017 at 11:28 Initial Consult Date 04/12/17 Type of Consultation: CARDIOLOGY Ordering Provider: NINA MACIEL DO Subjective CARDIOLOGY FOLLOW UP NOTE: D/W D/W staff and rhythm was reviewed. pt remains in NSR. no afib overnight no chest pain or pressure or palpitations. pt still s/p trach on vent on tele. s/p transfusion on 05/14/17 according to pt has been frustrated that can not communicate well. Objective: General: s/p trach on vent HEENT: NC/AT. . oropharynx with multiple lesions. . NECK: NO JVD. no stridor. s/p trach on vent CV: RRR. systolic ejection murmur; no gallop or rubs. PULM: + mild rhonchi. no wheezes. GI: SOFT, NT, ND, no rebound or guarding s/p PEG Extremity: 1-2+ B/L LE edema. no clubbing. neuro: awake and alert . responds appropriately. Psych: calm rectal: deferred Derm: multiple echymosis : S/P mims catheter in place. Objective Vital Signs Date Time Temp Pulse Resp B/P Pulse Ox O2 Delivery O2 Flow Rate FiO2 05/21/17 07:43 71 22 99 35 05/21/17 04:00 98.2 131/63 Intake and Output 05/20/17 05/20/17 05/21/17 15:00 23:00 07:00 Intake Total 1200 ml 1250 ml Output Total 650 ml 900 ml Balance 550 ml 350 ml Results/Medications Result Diagram: 05/20/17 0750 05/20/17 0750 Results 24 hrs Laboratory Tests Test 05/20/17 12:20 05/20/17 17:22 Bedside Glucose 103 136 Medications Current Medications Metoprolol Tartrate (Lopressor) 5 mg Q4H PRN IV HR>110 Hold SBP<110 Last administered on 04/20/17t 17:36; Admin Dose 5 MG; Start 04/11/17 at 13:30 Miscellaneous Information 1 ea NOTE XX ; Start 04/11/17 at 16:30 Glucose (Glutose) 15 gm Q15M PRN PO DECREASED GLUCOSE Last administered on 05/07 03:27; Admin Dose 15 GM; Start 04/11/17 at 16:30 Glucose (Glutose) 22.5 gm Q15M PRN PO DECREASED GLUCOSE; Start 04/11/17 at 16: 30 Dextrose (D50w Syringe) 25 ml Q15M PRN IV DECREASED GLUCOSE Last administered on 04/12/17 23:56; Admin Dose 25 ML; Start 04/11/17 at 16:30 Dextrose (D50w Syringe) 50 ml Q15M PRN IV DECREASED GLUCOSE; Start 04/11/17 at 16:30 Glucagon (Glucagen) 1 mg Q15M PRN IM DECREASED GLUCOSE; Start 04/11/17 at 16:30 Glucose (Glutose) 15 gm Q15M PRN BUCCAL DECREASED GLUCOSE; Start 04/11/17 at 16 :30 Metoclopramide HCl (Reglan) 10 mg Q6 IV Last administered on 05/20/17 23:44; Admin Dose 10 MG; Start 04/12/17 at 18:00 Insulin Aspart (Novolog Insulin Pen) NOVOLOG *MILD* ALGORI... Q6H SC Last administered on 05/20/17 06:03; Admin Dose 1 UNIT; Start 04/15/17 at 00:00 IV Flush (NS 10 ml) 10 ml PRN PRN IV FLUSH LINE; Start 04/15/17 at 13:00 Amiodarone HCl (Cordarone) 200 mg BID GTB Last administered on 05/20/17 20:51; Admin Dose 200 MG; Start 04/16/17 at 13:00 Heparin Sodium (Porcine) (Heparin (5000 Units/0.5 ml)) 5,000 unit BID SC Last administered on 04/30/17 21:03; Admin Dose 5,000 UNIT; Start 04/18/17 at 16:22; Status Future Hold Citalopram Hydrobromide (Celexa) 20 mg DAILY NGT Last administered on 05/20/17 10:04; Admin Dose 20 MG; Start 04/19/17 at 09:00 Hydralazine HCl (Apresoline) 20 mg Q6H PRN IV sbp ABOVE 160 Last administered on 05/14/17 19:01; Admin Dose 20 MG; Start 04/18/17 at 18:30 Chlorhexidine Gluconate (Peridex) 15 ml BID MT Last administered on 05/20/17 20 :45; Admin Dose 15 ML; Start 04/22/17 at 21:00 Vitamin A/Vitamin D (Vitamin A & D Oint) 1 applic TID TOP Last administered on 05/20/17 20:53; Admin Dose 1 APPLIC; Start 04/22/17 at 21:00 Vitamin A/Vitamin D (Vitamin A & D Oint) 1 applic TID PRN TOP DRYNESS Last administered on 04/22/17 15:29; Admin Dose 1 APPLIC; Start 04/22/17 at 15:00 Acetaminophen/ Hydrocodone Bitart ([place] (5/325)) 1 tab Q6H GTB Last administered on 05/20/17 20:56; Admin Dose 1 TAB; Start 04/22/17 at 21:30 Spironolactone (Aldactone) 25 mg DAILY NGT Last administered on 05/20/17 10:03 ; Admin Dose 25 MG; Start 04/25/17 at 19:00; Status Future hold Diltiazem HCl (Cardizem Iv) 5 mg Q1H PRN IV HEART RATE GREATER THAN 120 Last administered on 04/29/17 06:17; Admin Dose 5 MG; Start 04/29/17 at 05:00 Metronidazole 500 mg 500 mg Q8 GTB Last administered on 05/20/17 21:27; Admin Dose 500 MG; Start 04/30/17 at 22:00 Sodium Chloride 1,000 ml @ 0 mls/hr Q0M IV Last administered on 05/01/17 03: 00; Admin Dose 1,000 MLS/HR; Start 05/01/17 at 03:00 Sodium Chloride 1,000 ml @ 0 mls/hr Q0M IV Last administered on 05/01/17 04: 00; Admin Dose 1,000 MLS/HR; Start 05/01/17 at 03:30 Diltiazem HCl (Cardizem-D5W 125 Mg/125 ml Drip) 125 ml @ 5 mls/hr TITRATE IV Last administered on 05/02/17 19:11; Admin Dose 5 MLS/HR; Start 05/02/17 at 19: 00 Metoprolol Tartrate (Lopressor) 25 mg QID GTB Last administered on 05/20/17 20: 51; Admin Dose 25 MG; Start 05/07/17 at 09:00 Furosemide (Lasix) 40 mg Q12 IV Last administered on 05/20/17 20:51; Admin Dose 40 MG; Start 05/08/17 at 09:00 Vitamin B Complex/ Vitamin C (Berocca) 1 cap DAILY PO Last administered on 10:02; Admin Dose 1 CAP; Start 05/13/17 at 09:00 Nystatin (Nystatin Susp) 5 ml QID PO Last administered on 05/20/17 20:45; Admin Dose 5 ML; Start 05/12/17 at 17:00 Hydrocortisone (Solu-Cortef) 20 mg TID IV Last administered on 05/20/17 20:45; Admin Dose 20 MG; Start 05/17/17 at 09:30 Aspirin (Aspirin) 81 mg DAILY NGT Last administered on 05/20/17 09:00; Admin Dose 81 MG; Start 05/19/17 at 09:00 Lansoprazole (Prevacid) 30 mg BID@06,18 GTB Last administered on 05/20/17 17:19 ; Admin Dose 30 MG; Start 05/20/17 at 18:00 Assessment/Plan Chief Complaint/Hosp Course 1. acute on chronic hypoxemic respiratory failure: 2. NSTEMI: due to demand ischemia. 3. CHF/ fluid overload: due to diastolic heart failure 4. moderate 5. Arrhythmia and P afib, frequent PVC: currently in NSR. 6. ANEMIA: s/p multiple transfusion 7. s/p pneumonia, . 8. s/p sepsis and shock: BP is stable now. 9. Anasarca 10. s/p cardiopulm arrest due to resp failure 11. renal failure on HD now. 12. coagulopathy Rec: cont resp care as per PULM Team. correct lytes prn. CONT betablocker as tolerated. . cont thyroid supplement . cont tele monitoring HD/ ultrafiltration will be deferred to renal. currently HD is on hold and pt is having good urine output. transfuse prn low dose ASA 81 mg only due to recurrent anemia. THANK YOU. Problems: FRANCISCO BLACKWOOD MD May 21, 2017 08:54
[2017-05-21] MEDS: HYDROCORTISONE 100 MG INJ IV SCH ×3 (09:25→21:02)
[2017-05-21] MEDS: CHLORHEXIDINE GLUCONATE 15 ML UD CUP MT SCH ×2 (09:25→21:01)
[2017-05-21] MEDS: SPIRONOLACTONE 25 MG TAB NGT SCH (09:25)
[2017-05-21] MEDS: VITAMIN A & D 5 GM OINT PACKET TOP SCH ×3 (09:25→21:02)
[2017-05-21] MEDS: FUROSEMIDE 40 MG INJ IV SCH ×2 (09:25→21:02)
[2017-05-21] MEDS: METOPROLOL 25 MG TAB GTB SCH ×4 (09:26→21:04)
[2017-05-21] MEDS: AMIODARONE 200 MG TAB GTB SCH ×2 (09:26→21:02)
[2017-05-21] MEDS: CITALOPRAM 20 MG TAB NGT SCH (09:27)
[2017-05-21] MEDS: ASPIRIN 81 MG TAB NGT SCH (09:27)
[2017-05-21] MEDS: VITAMIN B COMPLEX/VIT C CAP PO SCH (09:28)
[2017-05-21] MEDS: NYSTATIN SUSP 5 ML CUP PO SCH ×4 (09:50→21:04)
[2017-05-21 10:24] LABS: ABNORMAL IP MESSAGE 1; BASOPHILS % 0.1 % (0.0-2.0); EOSINOPHILS # 0.2 10^3/ul (0.0-0.5); EOSINOPHILS % 1.4 % (0.0-7.0); HEMATOCRIT 30.4 % (37.0-47.0); LYMPHOCYTES # 1.4 10^3/ul (0.8-2.9); LYMPHOCYTES % 10.3 % (15.0-51.0); MEAN CORPUSCULAR HEMOGLOBIN 30.3 pg (29.0-33.0); MEAN CORPUSCULAR HGB CONC 32.9 g/dl (32.0-37.0); MEAN CORPUSCULAR VOLUME 92.1 fl (82.0-101.0); MEAN PLATELET VOLUME 10.9 fl (7.4-10.4); MONOCYTE # 1.5 10^3/ul (0.3-0.9); MONOCYTES % 10.9 % (0.0-11.0); NEUTROPHIL # 10.2 10^3/ul (1.6-7.5); NEUTROPHILS % 72.9 % (39.0-77.0); NUCLEATED RED BLOOD CELLS% 0.1 /100WBC (0.0-0.0); PLATELET COUNT 177 10^3/UL (140-415); RED CELL DISTRIBUTION WIDTH 19.5 % (11.5-14.5)
[2017-05-21 10:28] LABS: POSITIVE DIFF @See below
[2017-05-21 10:47] LABS: CALCIUM 8.3 mg/dl (8.4-10.2); CREATININE 1.68 mg/dl (0.44-1.00); MAGNESIUM 2.2 mg/dl (1.7-2.5); PHOSPHORUS 3.2 mg/dl (2.5-4.9); POTASSIUM 3.6 mmol/L (3.5-5.1)
--- NOTE | 2017-05-21 12:30 | PN ---
DATE: 05/21/2017 SUBJECTIVE DATA: Overnight, the patient was noted to be disruptive. Patient was refusing to take medication. This morning I have spoken with the patient with the at bedside. The patient is able to answer all questions appropriately by nodding yes or no. The patient states that she is frustrated and tired of being in the facility. No other events noted. OBJECTIVE DATA: VITAL SIGNS: Blood pressure 131/63, respirations 17, pulse 94, temperature 98.2. HEENT: Head is normocephalic. NECK: Supple. HEART: Regular rate. LUNGS: Show diminished breath sounds at the base. ABDOMEN: Soft, nontender to palpation. No rebound or guarding. EXTREMITIES: Negative for clubbing, cyanosis. Positive edema. DERMATOLOGIC: Clean. No rashes. MUSCULOSKELETAL: No joint effusion. NEUROLOGIC: No change in exam. MEDICATIONS: Reviewed. LABORATORY AND DIAGNOSTIC DATA: Currently pending. ASSESSMENT AND PLAN: 1. Ventilatory-dependent respiratory failure. Vent settings reviewed. Continue synchronized intermittent mandatory ventilation trials. 2. History of thyroid cancer with tracheomalacia. The patient has been seen by ENT. Continue to monitor. 3. Nonoliguric acute kidney injury on top of chronic kidney disease. Etiology secondary to acute tubular necrosis. The patient is on intermittent dialysis. The patient's urinary output has improved. We will hold dialysis, see if there are signs of renal recovery. 4. Volume overload secondary to acute kidney injury, congestive heart failure. Continue medical management. Continue diuretic therapy. 5. Sepsis, status post shock secondary to aspiration pneumonia and fungemia. The patient has completed antifungal therapy. Continue current antibiotic regimen. 6. Adrenal insufficiency. Continue steroid regimen. 7. Encephalopathy. Etiology is toxic metabolic. Mental status is improving. Continue to monitor. 8. Hypothyroidism. Continue Synthroid. 9. Anemia. Continue to monitor H and H levels. 10. Mineral bone disorder. Continue to monitor calcium and phosphorus levels. 11. History of congestive heart failure. Continue medical management. 12. Leukocytosis. Etiology is multifactorial, improving. Continue to monitor. 13. Left upper extremity deep vein thrombosis. Continue to monitor. Holding antiplatelets due to recent gastrointestinal bleed. 14. Dysphagia, status post percutaneous endoscopic gastrostomy tube. Continue tube feeding. 15. Status post upper gastrointestinal bleed. The patient is on low-dose aspirin. Monitor closely. Continue proton pump inhibitor . 16. Gastrointestinal and deep venous thrombosis prophylaxis. Continue proton pump inhibitor and sequential leg squeezes. Dictated By: Abebe Valderrama DO /marquita/laith /Document#: [id number]
[2017-05-21] MEDS: hydrALAzine 20 MG INJ IV PRN (12:40)
--- NOTE | 2017-05-21 17:04 | CONS ---
Date/Time of Note Date/Time of Note DATE: 05/21/17 TIME: 17:01 Consult Date/Type/Reason Admit Date/Time Apr 11, 2017 at 11:28 Initial Consult Date 04/12/17 Type of Consultation: Pulm Ordering Provider: NINA MACIEL DO Subjective More agitated and combative this morning. at bedside. Objective Vital Signs Date Time Temp Pulse Resp B/P Pulse Ox O2 Delivery O2 Flow Rate FiO2 05/21/17 16:54 66 22 100 35 05/21/17 15:20 98.6 116/58 Intake and Output 05/20/17 05/20/17 05/21/17 14:59 22:59 06:59 Intake Total 1200 ml 1250 ml Output Total 650 ml 900 ml Balance 550 ml 350 ml Exam PHYSICAL EXAMINATION GENERAL: Elderly lady on mechanical ventilation via tracheostomy VITAL SIGNS: see below. HEENT: Pupils equal, round, and reactive to light. Tracheostomy site clean and intact. CARDIAC: S1, S2, 1/6 systolic ejection murmur CHEST: Diminished air entry bilaterally. ABDOMEN: Mildly distended. Bowel sounds present no guarding or rebound EXTREMITIES: No cyanosis, clubbing edema +1 NEUROLOGIC: Generalized weakness Results/Medications Result Diagram: 05/21/17 1005 05/21/17 1005 Results 24 hrs Laboratory Tests Test 05/20/17 17:22 05/21/17 10:05 05/21/17 12:34 Bedside Glucose 136 138 White Blood Count 14.0 H Red Blood Count 3.30 L Hemoglobin 10.0 L Hematocrit 30.4 L Mean Corpuscular Volume 92.1 Mean Corpuscular Hemoglobin 30.3 Mean Corpuscular Hemoglobin Concent 32.9 Red Cell Distribution Width 19.5 H Platelet Count 177 Mean Platelet Volume 10.9 H Neutrophils % 72.9 Lymphocytes % 10.3 L Monocytes % 10.9 Eosinophils % 1.4 Basophils % 0.1 Nucleated Red Blood Cells % 0.1 H Neutrophils # 10.2 H Lymphocytes # 1.4 Monocytes # 1.5 H Eosinophils # 0.2 Basophils # 0.0 Nucleated Red Blood Cells # 0.0 Sodium Level 132 L Potassium Level 3.6 Chloride Level 88 L Carbon Dioxide Level 33 H Anion Gap 15 Blood Urea Nitrogen 82 H Creatinine 1.68 H Glucose Level 115 Calcium Level 8.3 L Phosphorus Level 3.2 Magnesium Level 2.2 Medications Current Medications Metoprolol Tartrate (Lopressor) 5 mg Q4H PRN IV HR>110 Hold SBP<110 Last administered on 04/20/17 17:36; Admin Dose 5 MG; Start 04/11/17 at 13:30 Miscellaneous Information 1 ea NOTE XX ; Start 04/11/17 at 16:30 Glucose (Glutose) 15 gm Q15M PRN PO DECREASED GLUCOSE Last administered on 05/07 03:27; Admin Dose 15 GM; Start 04/11/17 at 16:30 Glucose (Glutose) 22.5 gm Q15M PRN PO DECREASED GLUCOSE; Start 04/11/17 at 16: 30 Dextrose (D50w Syringe) 25 ml Q15M PRN IV DECREASED GLUCOSE Last administered on 04/12/17 23:56; Admin Dose 25 ML; Start 04/11/17 at 16:30 Dextrose (D50w Syringe) 50 ml Q15M PRN IV DECREASED GLUCOSE; Start 04/11/17 at 16:30 Glucagon (Glucagen) 1 mg Q15M PRN IM DECREASED GLUCOSE; Start 04/11/17 at 16:30 Glucose (Glutose) 15 gm Q15M PRN BUCCAL DECREASED GLUCOSE; Start 04/11/17 at 16 :30 Metoclopramide HCl (Reglan) 10 mg Q6 IV Last administered on 05/21/17 12:37; Admin Dose 10 MG; Start 04/12/17 at 18:00 Insulin Aspart (Novolog Insulin Pen) NOVOLOG *MILD* ALGORI... Q6H SC Last administered on 05/20/17 06:03; Admin Dose 1 UNIT; Start 04/15/17 at 00:00 IV Flush (NS 10 ml) 10 ml PRN PRN IV FLUSH LINE; Start 04/15/17 at 13:00 Amiodarone HCl (Cordarone) 200 mg BID GTB Last administered on 05/21/17 09:26; Admin Dose 200 MG; Start 04/16/17 at 13:00 Heparin Sodium (Porcine) (Heparin (5000 Units/0.5 ml)) 5,000 unit BID SC Last administered on 04/30/17 21:03; Admin Dose 5,000 UNIT; Start 04/18/17 at 16:22; Status Future Hold Citalopram Hydrobromide (Celexa) 20 mg DAILY NGT Last administered on 05/21/17 09:27; Admin Dose 20 MG; Start 04/19/17 at 09:00 Hydralazine HCl (Apresoline) 20 mg Q6H PRN IV sbp ABOVE 160 Last administered on 05/21/17 12:40; Admin Dose 20 MG; Start 04/18/17 at 18:30 Chlorhexidine Gluconate (Peridex) 15 ml BID MT Last administered on 05/21/17 09 :25; Admin Dose 15 ML; Start 04/22/17 at 21:00 Vitamin A/Vitamin D (Vitamin A & D Oint) 1 applic TID TOP Last administered on 05/21/17 09:25; Admin Dose 1 APPLIC; Start 04/22/17 at 21:00 Vitamin A/Vitamin D (Vitamin A & D Oint) 1 applic TID PRN TOP DRYNESS Last administered on 04/22/17 15:29; Admin Dose 1 APPLIC; Start 04/22/17 at 15:00 Acetaminophen/ Hydrocodone Bitart ([place] (5/325)) 1 tab Q6H GTB Last administered on 05/21/17 14:58; Admin Dose 1 TAB; Start 04/22/17 at 21:30 Spironolactone (Aldactone) 25 mg DAILY NGT Last administered on 05/21/17 09:25 ; Admin Dose 25 MG; Start 04/25/17 at 19:00; Status Future hold Diltiazem HCl (Cardizem Iv) 5 mg Q1H PRN IV HEART RATE GREATER THAN 120 Last administered on 04/29/17 06:17; Admin Dose 5 MG; Start 04/29/17 at 05:00 Metronidazole 500 mg 500 mg Q8 GTB Last administered on 05/21/17 14:57; Admin Dose 500 MG; Start 04/30/17 at 22:00 Sodium Chloride 1,000 ml @ 0 mls/hr Q0M IV Last administered on 05/01/17 03: 00; Admin Dose 1,000 MLS/HR; Start 05/01/17 at 03:00 Sodium Chloride 1,000 ml @ 0 mls/hr Q0M IV Last administered on 05/01/17 04: 00; Admin Dose 1,000 MLS/HR; Start 05/01/17 at 03:30 Diltiazem HCl (Cardizem-D5W 125 Mg/125 ml Drip) 125 ml @ 5 mls/hr TITRATE IV Last administered on 05/02/17 19:11; Admin Dose 5 MLS/HR; Start 05/02/17 at 19: 00 Metoprolol Tartrate (Lopressor) 25 mg QID GTB Last administered on 05/21/17 12: 42; Admin Dose 25 MG; Start 05/07/17 at 09:00 Furosemide (Lasix) 40 mg Q12 IV Last administered on 05/21/17 09:25; Admin Dose 40 MG; Start 05/08/17 at 09:00 Vitamin B Complex/ Vitamin C (Berocca) 1 cap DAILY PO Last administered on 09:28; Admin Dose 1 CAP; Start 05/13/17 at 09:00 Nystatin (Nystatin Susp) 5 ml QID PO Last administered on 05/21/17 09:50; Admin Dose 5 ML; Start 05/12/17 at 17:00 Hydrocortisone (Solu-Cortef) 20 mg TID IV Last administered on 05/21/17 12:37; Admin Dose 20 MG; Start 05/17/17 at 09:30 Aspirin (Aspirin) 81 mg DAILY NGT Last administered on 05/21/17 09:27; Admin Dose 81 MG; Start 05/19/17 at 09:00 Lansoprazole (Prevacid) 30 mg BID@06,18 GTB Last administered on 05/20/17 17:19 ; Admin Dose 30 MG; Start 05/20/17 at 18:00 Assessment/Plan Chief Complaint/Hosp Course Additional Assessment/Plan IMP: 1. VDRF 3. s/p Hypercapnic Respiratory Failure--likely due to critical illness myopathy/ neuropathy 4. s/p septic shock 5. Demand Ischemia 6. Cholecystitis 7. Encephalopathy toxic metabolic 8. Leukocytosis RECS: 1. Vent support, trial of SIMV. hold off further weaning for now. 2. BDs 3. TFs/Free H2O 4. Hemodialysis on hold Placement. Problems: DARWIN CRAWFORD MD, [facility] May 21, 2017 17:04
--- NOTE | 2017-05-21 18:01 | CONS ---
Date/Time of Note Date/Time of Note DATE: 05/21/17 TIME: 17:47 Assessment/Plan Assessment/Plan Chief Complaint/Hosp Course ID PROGRESS NOTE CURRENT ABX=>OFF ABX Day #2 She has completed a 10 day course for PNA/sepsis s/p Flagyl, + Cefepime #10+ Colistin INH #10 => DC'd 05/19/17 Valtrex,-> DC 05/17 Cancidas -> DC 05/10 Merrem -> DC'd 05/08 Merrem #14 total -> DC'd 04/26=> Restarted 24H INTERVAL SUMMARY/HOSPITAL COURSE * Awake, alert, responsive, watching TV, stable on the Vent, no fevers, no complaints offered * Significant other is not currently in the room * WBC elevated to 14.0 => She is on IV steroids PHYSICAL EXAMINATION: GENERAL: 66 yo F, stable on the Vent HEENT: Atraumatic, (+)Lip crusting lesions healing NECK: (+)Trach in place secure to VENT CHEST: Rise symmetrical w/coarse BS, scattered rales/rhonchi ABDOMEN: Soft, peg EXTREMITIES: Warm, moves extremities ID ASSESSMENT: 66 yo F w/PMHx tongue cancer, chronic trach re-admit H from SNF with: 1. s/p Acute severe sepsis/shock on admission w/(+)fever, tachycardia, lactic acidosis, leukocytosis, (+)troponin leak = RESOLVING * Leukocytosis persisting -> IV Steroids onboard * Fungemia => repeat BCx negative 2. Anasarca w/increased facial edema/bilateral lip edema w/resolving HSV lip lesions resolving * -- facial edema is worse due to patient preference while sitting up to lean her head forward w/neck flexion over her trach/trach-tie -- this position compromised jugular venous return. 3. Acute respiratory failure = recurrent issue s/p intubation x3rd episode w/ extubation, now with Trach secure to Vent 3. HCAP=> Recurrent Aspiration PNA post emesis // Hx of GNR tracheobronchitis * Sputum 04/21/17 (+)Yeast * Sputum 05/06/17 (+)PSAR 4. Acute CHF w/elevated BNP 8000 in setting tachycardia, sepsis, pulmonary edema on CXR 5. s/p Nausea w/emesis on admission -> RESOLVED * Query: DM Autonomic Gastroparesis * GERD 6. Cholelithiasis w/dilated CBD->HIDA scan (+cholecystitis 04/12/17=> s/p Mansi Drain 04/17/17, no surgery per GI 7. Acute renal failure = started on HD 8. Dysphagia sp PEG placement 9. Paroxysmal Afib 10. NSTEMI in setting sepsis, tachycardia, acute hypoxic respiratory failure, acute CHF exacerbation 11. Elevated glucose - iatrogenic diabetes while on IV steroids 12. Leukocytosis = partial steroids demargination 13. Lip lesions => consistent w/herpes simplex virus outbreak -> On Valtrex HEALING 14. s/p GIB associates with Acute on chronic anemia secondary to AVM ==> stopped , status post EGD on May 02 with injection of epinephrine 15. Recent (+)C.Diff on 03/07/16 (treated) w/(-)C.Diff 03/20/17 (-) MRSA Nares screen (04/03/17) INVASIVES: Trach, PEG, FC, R-FEM Amrit (05/04/17) ABX ALLERGY: Iodine CURRENT ABX=>OFF ABX Day #2 She has completed a 10 day course for PNA/sepsis s/p Flagyl, + Cefepime #10+ Colistin INH #10 => DC'd 05/19/17 Valtrex,-> DC 05/17 Cancidas -> DC 05/10 Merrem -> DC'd 05/08 Merrem #14 total -> DC'd 04/26=> Restarted ID PLAN=> Monitor her OFF ABX == at risk for recurrent sepsis do to multiple invasives + Hx of recurrent ASPIRATION 1. Continue Nystatin PO oral swish spit + Vit B/C complex -- lip/mouth lesions healing 2. Repeat micro PRN Temp >101.5 and/or other clinical indicators 3. [facility] Nursing Communication Order placed as below: => For temp >101.5 please enter and complete the followin. Blood Cx x 2 via the PICC Line 2. BCX x2 via HD line to be done w/next HD after the fever 3. Sent UA C&S - may straight cath or place FC for clean sample 4. Send Stool for C.Diff x1 5. Place order to pharmacy for Vancomycin IV dose per pharmacy after blood cx obtained 6. Place order for Gentamicin IV dose per pharmacy after blood cx obtained. 7. Please do not call primary or ID -- simply record the fever in the CPRS vitals where primary and ID can see the temperature on the daily chart. Thank you kindly . . Problems: Consultation Date/Type/Reason Admit Date/Time Apr 11, 2017 at 11:28 Initial Consult Date 04/11/17 Type of Consultation: ID Referring Provider: NINA MACIEL DO Exam/Review of Systems Vital Signs Vitals Vital Signs Date Time Temp Pulse Resp B/P Pulse Ox O2 Delivery O2 Flow Rate FiO2 05/21/17 17:14 78 05/21/17 16:54 22 100 35 05/21/17 15:20 98.6 116/58 Intake and Output 05/20/17 05/20/17 05/21/17 15:00 23:00 07:00 Intake Total 1200 ml 1250 ml Output Total 650 ml 900 ml Balance 550 ml 350 ml Results Result Diagram: 05/21/17 1005 05/21/17 1005 Results 24 hrs Laboratory Tests Test 05/21/17 10:05 05/21/17 12:34 05/21/17 17:14 White Blood Count 14.0 H Red Blood Count 3.30 L Hemoglobin 10.0 L Hematocrit 30.4 L Mean Corpuscular Volume 92.1 Mean Corpuscular Hemoglobin 30.3 Mean Corpuscular Hemoglobin Concent 32.9 Red Cell Distribution Width 19.5 H Platelet Count 177 Mean Platelet Volume 10.9 H Neutrophils % 72.9 Lymphocytes % 10.3 L Monocytes % 10.9 Eosinophils % 1.4 Basophils % 0.1 Nucleated Red Blood Cells % 0.1 H Neutrophils # 10.2 H Lymphocytes # 1.4 Monocytes # 1.5 H Eosinophils # 0.2 Basophils # 0.0 Nucleated Red Blood Cells # 0.0 Sodium Level 132 L Potassium Level 3.6 Chloride Level 88 L Carbon Dioxide Level 33 H Anion Gap 15 Blood Urea Nitrogen 82 H Creatinine 1.68 H Glucose Level 115 Calcium Level 8.3 L Phosphorus Level 3.2 Magnesium Level 2.2 Bedside Glucose 138 181 Medications Medications Current Medications Metoprolol Tartrate (Lopressor) 5 mg Q4H PRN IV HR>110 Hold SBP<110 Last administered on 04/20/17 17:36; Admin Dose 5 MG; Start 04/11/17 at 13:30 Miscellaneous Information 1 ea NOTE XX ; Start 04/11/17 at 16:30 Glucose (Glutose) 15 gm Q15M PRN PO DECREASED GLUCOSE Last administered on 05/07 03:27; Admin Dose 15 GM; Start 04/11/17 at 16:30 Glucose (Glutose) 22.5 gm Q15M PRN PO DECREASED GLUCOSE; Start 04/11/17 at 16: 30 Dextrose (D50w Syringe) 25 ml Q15M PRN IV DECREASED GLUCOSE Last administered on 04/12/17 23:56; Admin Dose 25 ML; Start 04/11/17 at 16:30 Dextrose (D50w Syringe) 50 ml Q15M PRN IV DECREASED GLUCOSE; Start 04/11/17 at 16:30 Glucagon (Glucagen) 1 mg Q15M PRN IM DECREASED GLUCOSE; Start 04/11/17 at 16:30 Glucose (Glutose) 15 gm Q15M PRN BUCCAL DECREASED GLUCOSE; Start 04/11/17 at 16 :30 Metoclopramide HCl (Reglan) 10 mg Q6 IV Last administered on 05/21/17 17:05; Admin Dose 10 MG; Start 04/12/17 at 18:00 Insulin Aspart (Novolog Insulin Pen) NOVOLOG *MILD* ALGORI... Q6H SC Last administered on 05/21/17 17:18; Admin Dose 2 UNIT; Start 04/15/17 at 00:00 IV Flush (NS 10 ml) 10 ml PRN PRN IV FLUSH LINE; Start 04/15/17 at 13:00 Amiodarone HCl (Cordarone) 200 mg BID GTB Last administered on 05/21/17 09:26; Admin Dose 200 MG; Start 04/16/17 at 13:00 Heparin Sodium (Porcine) (Heparin (5000 Units/0.5 ml)) 5,000 unit BID SC Last administered on 04/30/17 21:03; Admin Dose 5,000 UNIT; Start 04/18/17 at 16:22; Status Future Hold Citalopram Hydrobromide (Celexa) 20 mg DAILY NGT Last administered on 05/21/17 09:27; Admin Dose 20 MG; Start 04/19/17 at 09:00 Hydralazine HCl (Apresoline) 20 mg Q6H PRN IV sbp ABOVE 160 Last administered on 05/21/17 12:40; Admin Dose 20 MG; Start 04/18/17 at 18:30 Chlorhexidine Gluconate (Peridex) 15 ml BID MT Last administered on 05/21/17 09 :25; Admin Dose 15 ML; Start 04/22/17 at 21:00 Vitamin A/Vitamin D (Vitamin A & D Oint) 1 applic TID TOP Last administered on 05/21/17 09:25; Admin Dose 1 APPLIC; Start 04/22/17 at 21:00 Vitamin A/Vitamin D (Vitamin A & D Oint) 1 applic TID PRN TOP DRYNESS Last administered on 04/22/17 15:29; Admin Dose 1 APPLIC; Start 04/22/17 at 15:00 Acetaminophen/ Hydrocodone Bitart ([place] (5/325)) 1 tab Q6H GTB Last administered on 05/21/17 14:58; Admin Dose 1 TAB; Start 04/22/17 at 21:30 Spironolactone (Aldactone) 25 mg DAILY NGT Last administered on 05/21/17 09:25 ; Admin Dose 25 MG; Start 04/25/17 at 19:00; Status Future hold Diltiazem HCl (Cardizem Iv) 5 mg Q1H PRN IV HEART RATE GREATER THAN 120 Last administered on 04/29/17 06:17; Admin Dose 5 MG; Start 04/29/17 at 05:00 Metronidazole 500 mg 500 mg Q8 GTB Last administered on 05/21/17 14:57; Admin Dose 500 MG; Start 04/30/17 at 22:00 Sodium Chloride 1,000 ml @ 0 mls/hr Q0M IV Last administered on 05/01/17 03: 00; Admin Dose 1,000 MLS/HR; Start 05/01/17 at 03:00 Sodium Chloride 1,000 ml @ 0 mls/hr Q0M IV Last administered on 05/01/17 04: 00; Admin Dose 1,000 MLS/HR; Start 05/01/17 at 03:30 Diltiazem HCl (Cardizem-D5W 125 Mg/125 ml Drip) 125 ml @ 5 mls/hr TITRATE IV Last administered on 05/02/17 19:11; Admin Dose 5 MLS/HR; Start 05/02/17 at 19: 00 Metoprolol Tartrate (Lopressor) 25 mg QID GTB Last administered on 05/21/17 17: 05; Admin Dose 25 MG; Start 05/07/17 at 09:00 Furosemide (Lasix) 40 mg Q12 IV Last administered on 05/21/17 09:25; Admin Dose 40 MG; Start 05/08/17 at 09:00 Vitamin B Complex/ Vitamin C (Berocca) 1 cap DAILY PO Last administered on 09:28; Admin Dose 1 CAP; Start 05/13/17 at 09:00 Nystatin (Nystatin Susp) 5 ml QID PO Last administered on 05/21/17 17:04; Admin Dose 5 ML; Start 05/12/17 at 17:00 Hydrocortisone (Solu-Cortef) 20 mg TID IV Last administered on 05/21/17 12:37; Admin Dose 20 MG; Start 05/17/17 at 09:30 Aspirin (Aspirin) 81 mg DAILY NGT Last administered on 05/21/17 09:27; Admin Dose 81 MG; Start 05/19/17 at 09:00 Lansoprazole (Prevacid) 30 mg BID@,18 GTB Last administered on 05/21/17 17:05 ; Admin Dose 30 MG; Start 05/20/17 at 18:00 MARGOT WILLS NP May 21, 2017 17:57
[2017-05-22] VITALS (26 sets, daily range): BP systolic 105–208; BP diastolic 55–91; PULSE 63–80; RESP 15–24
[2017-05-22] MEDS: LEVALBUTEROL (HFA) 15 GM INHALER INH SCH ×4 (00:50→19:47)
[2017-05-22] MEDS: HYDROCODONE/APAP (5/325) TAB GTB SCH ×4 (03:41→21:12)
[2017-05-22] MEDS: METOCLOPRAMIDE 10 MG INJ IV SCH ×3 (05:27→18:02)
[2017-05-22] MEDS: metroNIDAZOLE 500 MG TAB GTB SCH ×3 (05:28→21:12)
[2017-05-22] MEDS: LEVOTHYROXINE 100 MCG TAB GTB SCH (05:28)
[2017-05-22] MEDS: LANSOPRAZOLE 30 MG CAP GTB SCH ×2 (05:28→18:01)
[2017-05-22] MEDS: INSULIN ASPART [NOVOLOG] 3 ML PEN SC SCH ×3 (05:33→18:15)
--- NOTE | 2017-05-22 08:07 | CONS ---
Date/Time of Note Date/Time of Note DATE: 05/22/17 TIME: 08:07 Consult Date/Type/Reason Admit Date/Time Apr 11, 2017 at 11:28 Initial Consult Date 04/12/17 Type of Consultation: CARDIOLOGY Ordering Provider: NINA MACIEL DO Subjective CARDIOLOGY FOLLOW UP NOTE: D/W D/W staff and rhythm was reviewed. pt remains in NSR. no afib overnight no chest pain or pressure or palpitations. pt still s/p trach on vent on tele. s/p transfusion on 05/14/17 Objective: General: s/p trach on vent HEENT: NC/AT. . oropharynx with multiple lesions. . NECK: NO JVD. no stridor. s/p trach on vent CV: RRR. systolic ejection murmur; no gallop or rubs. PULM: + mild rhonchi. no wheezes. GI: SOFT, NT, ND, no rebound or guarding s/p PEG Extremity: 1-2+ B/L LE edema. no clubbing. neuro: awake and alert . responds appropriately. Psych: calm rectal: deferred Derm: multiple echymosis : S/P mims catheter in place. Objective Vital Signs Date Time Temp Pulse Resp B/P Pulse Ox O2 Delivery O2 Flow Rate FiO2 05/22/17 07:47 98.0 73 18 127/77 98 05/22/17 05:20 35 Intake and Output 05/21/17 05/21/17 05/22/17 15:00 23:00 07:00 Intake Total 1250 ml Output Total 900 ml Balance 350 ml Results/Medications Result Diagram: 05/21/17 1005 05/21/17 1005 Results 24 hrs Laboratory Tests Test 05/21/17 10:05 05/21/17 12:34 05/21/17 17:14 05/21/17 23:03 White Blood Count 14.0 H Red Blood Count 3.30 L Hemoglobin 10.0 L Hematocrit 30.4 L Mean Corpuscular Volume 92.1 Mean Corpuscular Hemoglobin 30.3 Mean Corpuscular Hemoglobin Concent 32.9 Red Cell Distribution Width 19.5 H Platelet Count 177 Mean Platelet Volume 10.9 H Neutrophils % 72.9 Lymphocytes % 10.3 L Monocytes % 10.9 Eosinophils % 1.4 Basophils % 0.1 Nucleated Red Blood Cells % 0.1 H Neutrophils # 10.2 H Lymphocytes # 1.4 Monocytes # 1.5 H Eosinophils # 0.2 Basophils # 0.0 Nucleated Red Blood Cells # 0.0 Sodium Level 132 L Potassium Level 3.6 Chloride Level 88 L Carbon Dioxide Level 33 H Anion Gap 15 Blood Urea Nitrogen 82 H Creatinine 1.68 H Glucose Level 115 Calcium Level 8.3 L Phosphorus Level 3.2 Magnesium Level 2.2 Bedside Glucose 138 181 149 Test 05/22/17 05:29 Bedside Glucose 161 Medications Current Medications Metoprolol Tartrate (Lopressor) 5 mg Q4H PRN IV HR>110 Hold SBP<110 Last administered on 04/20/17 17:36; Admin Dose 5 MG; Start 04/11/17 at 13:30 Miscellaneous Information 1 ea NOTE XX ; Start 04/11/17 at 16:30 Glucose (Glutose) 15 gm Q15M PRN PO DECREASED GLUCOSE Last administered on 05/07 03:27; Admin Dose 15 GM; Start 04/11/17 at 16:30 Glucose (Glutose) 22.5 gm Q15M PRN PO DECREASED GLUCOSE; Start 04/11/17 at 16: 30 Dextrose (D50w Syringe) 25 ml Q15M PRN IV DECREASED GLUCOSE Last administered on 04/12/17 23:56; Admin Dose 25 ML; Start 04/11/17 at 16:30 Dextrose (D50w Syringe) 50 ml Q15M PRN IV DECREASED GLUCOSE; Start 04/11/17 at 16:30 Glucagon (Glucagen) 1 mg Q15M PRN IM DECREASED GLUCOSE; Start 04/11/17 at 16:30 Glucose (Glutose) 15 gm Q15M PRN BUCCAL DECREASED GLUCOSE; Start 04/11/17 at 16 :30 Metoclopramide HCl (Reglan) 10 mg Q6 IV Last administered on 05/22/17 05:27; Admin Dose 10 MG; Start 04/12/17 at 18:00 Insulin Aspart (Novolog Insulin Pen) NOVOLOG *MILD* ALGORI... Q6H SC Last administered on 05/22/17 05:33; Admin Dose 1 UNIT; Start 04/15/17 at 00:00 IV Flush (NS 10 ml) 10 ml PRN PRN IV FLUSH LINE; Start 04/15/17 at 13:00 Amiodarone HCl (Cordarone) 200 mg BID GTB Last administered on 05/21/17 21:02; Admin Dose 200 MG; Start 04/16/17 at 13:00 Heparin Sodium (Porcine) (Heparin (5000 Units/0.5 ml)) 5,000 unit BID SC Last administered on 04/30/17 21:03; Admin Dose 5,000 UNIT; Start 04/18/17 at 16:22; Status Future Hold Citalopram Hydrobromide (Celexa) 20 mg DAILY NGT Last administered on 05/21/17 09:27; Admin Dose 20 MG; Start 04/19/17 at 09:00 Hydralazine HCl (Apresoline) 20 mg Q6H PRN IV sbp ABOVE 160 Last administered on 05/21/17 12:40; Admin Dose 20 MG; Start 04/18/17 at 18:30 Chlorhexidine Gluconate (Peridex) 15 ml BID MT Last administered on 05/21/17 21 :01; Admin Dose 15 ML; Start 04/22/17 at 21:00 Vitamin A/Vitamin D (Vitamin A & D Oint) 1 applic TID TOP Last administered on 05/21/17 21:02; Admin Dose 1 APPLIC; Start 04/22/17 at 21:00 Vitamin A/Vitamin D (Vitamin A & D Oint) 1 applic TID PRN TOP DRYNESS Last administered on 04/22/17 15:29; Admin Dose 1 APPLIC; Start 04/22/17 at 15:00 Acetaminophen/ Hydrocodone Bitart ([place] (5/325)) 1 tab Q6H GTB Last administered on 05/22/17 03:41; Admin Dose 1 TAB; Start 04/22/17 at 21:30 Spironolactone (Aldactone) 25 mg DAILY NGT Last administered on 05/21/17 09:25 ; Admin Dose 25 MG; Start 04/25/17 at 19:00; Status Future hold Diltiazem HCl (Cardizem Iv) 5 mg Q1H PRN IV HEART RATE GREATER THAN 120 Last administered on 04/29/17 06:17; Admin Dose 5 MG; Start 04/29/17 at 05:00 Metronidazole 500 mg 500 mg Q8 GTB Last administered on 05/22/17 05:28; Admin Dose 500 MG; Start 04/30/17 at 22:00 Sodium Chloride 1,000 ml @ 0 mls/hr Q0M IV Last administered on 05/01/17 03: 00; Admin Dose 1,000 MLS/HR; Start 05/01/17 at 03:00 Sodium Chloride 1,000 ml @ 0 mls/hr Q0M IV Last administered on 05/01/17 04: 00; Admin Dose 1,000 MLS/HR; Start 05/01/17 at 03:30 Diltiazem HCl (Cardizem-D5W 125 Mg/125 ml Drip) 125 ml @ 5 mls/hr TITRATE IV Last administered on 05/02/17 19:11; Admin Dose 5 MLS/HR; Start 05/02/17 at 19: 00 Metoprolol Tartrate (Lopressor) 25 mg QID GTB Last administered on 05/21/17 21: 04; Admin Dose 25 MG; Start 05/07/17 at 09:00 Furosemide (Lasix) 40 mg Q12 IV Last administered on 05/21/17 21:02; Admin Dose 40 MG; Start 05/08/17 at 09:00 Vitamin B Complex/ Vitamin C (Berocca) 1 cap DAILY PO Last administered on 09:28; Admin Dose 1 CAP; Start 05/13/17 at 09:00 Nystatin (Nystatin Susp) 5 ml QID PO Last administered on 05/21/17 21:04; Admin Dose 5 ML; Start 05/12/17 at 17:00 Hydrocortisone (Solu-Cortef) 20 mg TID IV Last administered on 05/21/17 21:02; Admin Dose 20 MG; Start 05/17/17 at 09:30 Aspirin (Aspirin) 81 mg DAILY NGT Last administered on 05/21/17 09:27; Admin Dose 81 MG; Start 05/19/17 at 09:00 Lansoprazole (Prevacid) 30 mg BID@06,18 GTB Last administered on 05/22/17 05: 28; Admin Dose 30 MG; Start 05/20/17 at 18:00 Assessment/Plan Chief Complaint/Hosp Course 1. acute on chronic hypoxemic respiratory failure: 2. NSTEMI: due to demand ischemia. 3. CHF/ fluid overload: due to diastolic heart failure 4. moderate 5. Arrhythmia and P afib, frequent PVC: currently in NSR. 6. ANEMIA: s/p multiple transfusion 7. s/p pneumonia, . 8. s/p sepsis and shock: BP is stable now. 9. Anasarca 10. s/p cardiopulm arrest due to resp failure 11. renal failure on HD now. 12. coagulopathy Rec: cont resp care as per PULM Team. correct lytes prn. CONT betablocker as tolerated. . cont thyroid supplement . cont tele monitoring HD/ ultrafiltration will be deferred to renal. currently HD is on hold and pt is having urine output. transfuse prn low dose ASA 81 mg only due to recurrent anemia. THANK YOU. Problems: FRANCISCO BLACKWOOD MD May 22, 2017 08:07
[2017-05-22 08:16] LABS: BASOPHILS % 0.1 % (0.0-2.0); EOSINOPHILS # 0.1 10^3/ul (0.0-0.5); EOSINOPHILS % 0.7 % (0.0-7.0); HEMATOCRIT 27.3 % (37.0-47.0); HEMOGLOBIN 9.2 g/dl (12.0-16.0); LYMPHOCYTES # 0.9 10^3/ul (0.8-2.9); LYMPHOCYTES % 9.1 % (15.0-51.0); MEAN CORPUSCULAR HEMOGLOBIN 31.6 pg (29.0-33.0); MEAN CORPUSCULAR HGB CONC 33.7 g/dl (32.0-37.0); MEAN CORPUSCULAR VOLUME 93.8 fl (82.0-101.0); MEAN PLATELET VOLUME 11.6 fl (7.4-10.4); MONOCYTE # 0.8 10^3/ul (0.3-0.9); MONOCYTES % 8.4 % (0.0-11.0); NEUTROPHIL # 7.7 10^3/ul (1.6-7.5); NEUTROPHILS % 77.3 % (39.0-77.0); PLATELET COUNT 151 10^3/UL (140-415); RED BLOOD COUNT 2.91 10^6/ul (4.20-5.40); RED CELL DISTRIBUTION WIDTH 20.2 % (11.5-14.5)
[2017-05-22 08:33] LABS: ALBUMIN 2.6 g/dl (3.3-4.9); ALBUMIN/GLOBULIN RATIO 1.23; CALCIUM 8.1 mg/dl (8.4-10.2); CREATININE 1.86 mg/dl (0.44-1.00); POTASSIUM 3.7 mmol/L (3.5-5.1); TOTAL PROTEIN 4.7 g/dl (6.1-8.1)
[2017-05-22 08:46] LABS: MAGNESIUM 2.2 mg/dl (1.7-2.5); PHOSPHORUS 3.6 mg/dl (2.5-4.9)
[2017-05-22] MEDS: VITAMIN B COMPLEX/VIT C CAP PO SCH (10:11)
[2017-05-22] MEDS: ASPIRIN 81 MG TAB NGT SCH (10:13)
[2017-05-22] MEDS: CITALOPRAM 20 MG TAB NGT SCH (10:13)
[2017-05-22] MEDS: SPIRONOLACTONE 25 MG TAB NGT SCH (10:14)
[2017-05-22] MEDS: AMIODARONE 200 MG TAB GTB SCH ×2 (10:14→21:15)
[2017-05-22] MEDS: METOPROLOL 25 MG TAB GTB SCH ×4 (10:15→21:14)
[2017-05-22] MEDS: HYDROCORTISONE 100 MG INJ IV SCH ×3 (10:16→21:09)
[2017-05-22] MEDS: FUROSEMIDE 40 MG INJ IV SCH ×3 (10:16→21:10)
[2017-05-22] MEDS: VITAMIN A & D 5 GM OINT PACKET TOP SCH ×3 (10:17→21:11)
--- NOTE | 2017-05-22 11:04 | PN ---
DATE: 05/22/2017 SUBJECTIVE DATA: The patient is stable. No events overnight. No fevers, chills, nausea, vomiting. OBJECTIVE DATA: VITAL SIGNS: Blood pressure is 120/77, respirations 18, pulse 73, temperature 98.0 HEENT: Head is normocephalic. NECK: Trach. HEART: Regular rate. LUNGS: Diminished breath sounds at the base. ABDOMEN: Soft, nontender to palpation. No rebound or guarding. EXTREMITIES: Negative for clubbing, cyanosis. Positive edema, +3 lower extremity. DERMATOLOGIC: Clean. No rashes. MUSCULOSKELETAL: No joint effusion. NEUROLOGIC: No change in exam. MEDICATIONS: Reviewed. LABORATORY AND DIAGNOSTIC DATA: Shows sodium 131, potassium 3.7, chloride 89, BUN 95, creatinine 1.6, calcium 8.1. BNP is 10,000, white count 10.9, hemoglobin 9.2, hematocrit 27.3, platelet count is 151,000. ASSESSMENT AND PLAN: 1. Ventilatory respiratory failure dependence failure. Vent settings reviewed. Arterial blood gases reviewed. Continue to monitor. Follow up with Pulmonary. 2. History of thyroid cancer, tracheomalacia, patient status post ear, nose and throat evaluation. Continue to monitor. 3. Nonoliguric acute kidney injury on top chronic kidney disease, etiology secondary acute tubular necrosis. The patient's hemodialysis has been on hold to see if there are signs of renal recovery. Will monitor closely. 4. Volume overload secondary to acute kidney injury and congestive heart failure. Continue diuretic therapy. 5. Sepsis status post shock secondary to aspiration pneumonia, fungemia. The patient has completed antifungal therapies, completing antibiotic course. 6. Adrenal insufficiency. Continue current steroid regimen per endocrinology. 7. Encephalopathy. Etiology is toxic metabolic. The patient's mental status is improving. Continue to monitor. 8. Hypothyroidism. Continue Synthroid. 9. Hyponatremia secondary to acute kidney injury. Will limit free water intake. Monitor closely. 10. Anemia. Monitor hemoglobin and hematocrit levels. 11. Bone disorder. Monitor calcium and phosphorus levels. 12. History of congestive heart failure, improving. Continue to monitor. 13. Leukocytosis, etiology multifactorial, resolving. Continue to observe. 14. Left upper extremity deep vein thrombosis. Continue to hold full anticoagulation due to recent gastrointestinal bleed. 15. Dysphagia. Continue tube feeding. 16. Status post upper gastrointestinal bleed. The patient is currently on proton pump inhibitor. Continue to monitor closely as patient is also on aspirin. 17. Gastrointestinal and deep venous thrombosis prophylaxis. Continue with proton pump inhibitor and sequential leg squeezers. Dictated By: Abebe Valderrama DO /marquita/joi /Document#: [id number]
--- NOTE | 2017-05-22 12:08 | PN ---
Date/Time of Note Date/Time of Note DATE: 05/22/17 TIME: 12:04 Assessment/Plan Lines/Catheters IV Catheter Type (from [facility]): Amrit Cath Latif in Place (from [facility]): Yes Assessment/Plan Chief Complaint/Hosp Course 1. Cholelithiasis: Tolerating tube feeds; no abdominal pain/discomfort/bloating ; +bowel function -No surgical intervention required at this time 2. Pneumonia: Recurrent +sputum cultures; appears comfortable, min sputum, no fevers -pulmonary toilet -abx per ID -wean as tolerated 3. Vent dependent respiratory failure: 2/2 aspiration PNA+ CHF;reintubated and extubated, coded 04/21 and 05/01; comfortable on vent; eager to wean her off vent, on SIMV -as above 4. Septic Shock resolved 5. Uncontrolled Afib: s/p amiodarone drip, on oral amiodarone; episodes of Afib Now SR -medical optimization 6. Leukocytosis with lactic acidosis: 2/2 pneumonia +/- steroids vs.fungemia vs other (urine, repeat blood cultures negative); normalized today -abx, antifungals -supportive measures 7. Macrocytic anemia: chronic vs. dilutional vs. acute bleed vs. b12/folate deficiency; hh lower but no acute bleed noted -monitor -Transfuse as needed 8. 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 CHF: BNP elevated -judicious fluid management -medical optimization 10. Adrenal Insufficiency -solucortef 11. Oral lesions: improving 12. Hypothyroidism; tsh elevated -on synthroid 13. Encephalopathy: resolved -supportive 14. Bilateral upper extremity edema: hx(+) Thrombus; much improved -elevate extremities -supportive 15. Hypoalbuminemia: 2/2 malnutrition +/- inflammation; decreased; tolerating tf ; -nutrition optimization -as above 16. Hypocalcemia with hypoalbuminemia -optimize nutrition 17. Fungemia -antifungals 18. Electrolyte imbalance: (hyponatremia, hypokalemia); improved -electrolyte optimization Patient seen and examined in collaboration with Dr. Justus Antonio. Thank you Problems: Subjective 24 Hr Interval Summary No c/o pain or discomfort. comfortable on vent- attempting to wean. No fevers, chills, sob, congested cough, n/v/d/dysuria. +bowel function, tolerating tf. Exam/Review of Systems Vital Signs Vitals Vital Signs Date Time Temp Pulse Resp B/P Pulse Ox O2 Delivery O2 Flow Rate FiO2 05/22/17 09:34 66 16 99 35 05/22/17 07:47 98.0 127/77 Intake and Output 05/21/17 05/21/17 05/22/17 15:00 23:00 07:00 Intake Total 1250 ml Output Total 900 ml Balance 350 ml Exam Free Text/Dictation Constitutional: fully awake, responsive,labile mood Head: atraumatic, normocephalic Eyes: PERRL, nl lids, nl sclera ENMT: No mucosa pink and moist (pink and moist with healing perioral lesions) Neck: non-tender, supple, tracheostomy Respiratory: diminished, comfortable on vent, min sputum Cardiovascular: nl pulses, regular rate and rhythm, Gastrointestinal: non distended, GT tubes site no erythema, no drainage, non tenderness, bowel sounds x 4 quads, soft; tf ongoing Genitourinary - Female: nl external genitalia Musculoskeletal: nl extremities to inspection Extremities: normal pulses, bilateral upper/lower extremity edema 1+; EVELIA 2+; edema continuing to improve Neurological: responsive Skin: nl turgor, No rash or lesions Lymph: nl lymph nodes Results Result Diagram: 05/22/1772905/22/17729 ADDISON FREGOSO NP May 22, 2017 12:08
[2017-05-22] MEDS: CHLORHEXIDINE GLUCONATE 15 ML UD CUP MT SCH ×2 (13:00→21:11)
[2017-05-22] MEDS: NYSTATIN SUSP 5 ML CUP PO SCH ×3 (13:00→21:11)
--- NOTE | 2017-05-22 16:52 | CONS ---
Date/Time of Note Date/Time of Note DATE: 05/22/17 TIME: 16:34 Assessment/Plan Assessment/Plan Chief Complaint/Hosp Course ID PROGRESS NOTE CURRENT ABX=>OFF ABX Day #3 She has completed a 10 day course for recurrent PNA/sepsis 24H INTERVAL SUMMARY/HOSPITAL COURSE * No fevers, WBC normalized today, she looks better than I have ever seen her and tells me she feels the best she has felt since admission for recurrent ASP PNA and sepsis. Lip lesions healed with improved reduction in facial/lip edema. PHYSICAL EXAMINATION: GENERAL: 66 yo F, stable on the Vent HEENT: Atraumatic, (+)Lip lesions well healed == Facial edema is much better NECK: (+)Trach in place secure to VENT CHEST: Rise symmetrical w/coarse BS, scattered rales/rhonchi ABDOMEN: Soft, peg EXTREMITIES: Warm, moves extremities ID ASSESSMENT: 66 yo F w/PMHx tongue cancer, chronic trach re-admit H from SNF with: 1. s/p Acute severe sepsis/shock on admission w/(+)fever, tachycardia, lactic acidosis, leukocytosis, (+)troponin leak = RESOLVED * Leukocytosis persisting -> IV Steroids onboard => normalized 05/22 * Fungemia => repeat BCx negative 2. Anasarca w/increased facial edema/bilateral lip edema w/resolution of HSV lip lesions => IMPROVED * -- facial edema is worse due to patient preference while sitting up to lean her head forward w/neck flexion over her trach/trach-tie -- this position compromised jugular venous return. 3. Acute respiratory failure = recurrent issue s/p intubation x3rd episode w/ extubation, now with Trach secure to Vent 3. HCAP=> Recurrent Aspiration PNA post emesis // Hx of GNR tracheobronchitis * Sputum 04/21/17 (+)Yeast * Sputum 05/06/17 (+)PSAR 4. Acute CHF w/elevated BNP 8000 in setting tachycardia, sepsis, pulmonary edema on CXR 5. s/p Nausea w/emesis on admission -> RESOLVED -- This has been recurrent issue , etiology of recurrent ASP PNA/Pulm Sepsis * Query: DM Autonomic Gastroparesis * GERD 6. Cholelithiasis w/dilated CBD->HIDA scan (+cholecystitis 04/12/17=> s/p Mansi Drain 04/17/17, no surgery per GI => Asymptomatic/Stable 7. Acute renal failure = started on HD 8. Dysphagia sp PEG placement 9. Paroxysmal Afib 10. NSTEMI in setting sepsis, tachycardia, acute hypoxic respiratory failure, acute CHF exacerbation 11. Elevated glucose - iatrogenic diabetes while on IV steroids 12. Leukocytosis = partial steroids demargination 13. Lip lesions => consistent w/herpes simplex virus outbreak -> HEALED 14. s/p GIB associates with Acute on chronic anemia secondary to AVM ==> stopped , status post EGD on May 02 with injection of epinephrine 15. Recent (+)C.Diff on 03/07/16 (treated) w/(-)C.Diff 03/20/17 => Monitor for recurrent (-) MRSA Nares screen (04/03/17) INVASIVES: Trach, PEG, FC, R-FEM Amrit (05/04/17) ABX ALLERGY: Iodine CURRENT ABX=>OFF ABX Day #3 She has completed a 10 day course for recurrent ASP PNA/sepsis s/p Flagyl, + Cefepime #10+ Colistin INH #10 => DC'd 05/19/17 Valtrex,-> DC 05/17 Cancidas -> DC 05/10 Merrem -> DC'd 05/08 She completed a 14 day course upon admission for ASP PNA was OFF ABX then re- aspirated * Merrem #14 total -> DC'd 04/26=> Restarted 05/08 ID PLAN=> Monitor her OFF ABX * Consider addition of Erythromycin for improved bowel motility => Query gastroparesis 2/2 DM ? = She has recurrent aspiration + GERD/Hiatal hernia HIGH RISK: Recurrent sepsis do to multiple invasives + Hx of recurrent ASPIRATION 1. Continue Nystatin PO oral swish spit + Vit B/C complex -- lip/mouth lesions healing 2. Repeat micro PRN Temp >101.5 and/or other clinical indicators * [facility] Nursing Communication Order placed as below: => For temp >101.5 please enter and complete the following: * 1. Blood Cx x 2 via the PICC Line * 2. BCX x2 via HD line to be done w/next HD after the fever * 3. Sent UA C&S - may straight cath or place FC for clean sample * 4. Send Stool for C.Diff x1 * 5. Place order to pharmacy for Vancomycin IV dose per pharmacy after blood cx obtained * 6. Place order for Gentamicin IV dose per pharmacy after blood cx obtained. * 7. Please do not call primary or ID -- simply record the fever in the CPRS vitals where primary and ID can see the temperature on the daily chart. Thank you kindly . . Problems: Consultation Date/Type/Reason Admit Date/Time Apr 11, 2017 at 11:28 Initial Consult Date 04/11/17 Type of Consultation: ID Referring Provider: NINA MACIEL DO Exam/Review of Systems Vital Signs Vitals Vital Signs Date Time Temp Pulse Resp B/P Pulse Ox O2 Delivery O2 Flow Rate FiO2 05/22/17 16:27 65 05/22/17 15:37 97.7 16 135/66 98 05/22/17 15:22 35 Intake and Output 05/21/17 05/21/17 05/22/17 15:00 23:00 07:00 Intake Total 1250 ml Output Total 900 ml Balance 350 ml Results Result Diagram: 05/22/17 0730 05/22/17 0730 Results 24 hrs Laboratory Tests Test 05/21/17 17:14 05/21/17 23:03 05/22/17 05:29 05/22/17 07:29 Bedside Glucose 181 149 161 Phosphorus Level 3.6 Magnesium Level 2.2 Test 05/22/17 07:30 05/22/17 12:54 White Blood Count 10.0 # Red Blood Count 2.91 L Hemoglobin 9.2 L Hematocrit 27.3 L Mean Corpuscular Volume 93.8 Mean Corpuscular Hemoglobin 31.6 Mean Corpuscular Hemoglobin Concent 33.7 Red Cell Distribution Width 20.2 H Platelet Count 151 Mean Platelet Volume 11.6 H Neutrophils % 77.3 H Lymphocytes % 9.1 L Monocytes % 8.4 Eosinophils % 0.7 Basophils % 0.1 Nucleated Red Blood Cells % 0.0 Neutrophils # 7.7 H Lymphocytes # 0.9 Monocytes # 0.8 Eosinophils # 0.1 Basophils # 0.0 Nucleated Red Blood Cells # 0.0 Sodium Level 131 L Potassium Level 3.7 Chloride Level 89 L Carbon Dioxide Level 31 Anion Gap 15 Blood Urea Nitrogen 95 H Creatinine 1.86 H Glucose Level 125 Calcium Level 8.1 L Total Bilirubin 0.0 L Direct Bilirubin 0.00 Indirect Bilirubin 0.0 Aspartate Amino Transf (AST/SGOT) 21 Alanine Aminotransferase (ALT/SGPT) 38 Alkaline Phosphatase 108 B-Type Natriuretic Peptide 06460 H Total Protein 4.7 L Albumin 2.6 L Globulin 2.10 Albumin/Globulin Ratio 1.23 Bedside Glucose 136 Medications Medications Current Medications Metoprolol Tartrate (Lopressor) 5 mg Q4H PRN IV HR>110 Hold SBP<110 Last administered on 04/20/17 17:36; Admin Dose 5 MG; Start 04/11/17 at 13:30 Miscellaneous Information 1 ea NOTE XX ; Start 04/11/17 at 16:30 Glucose (Glutose) 15 gm Q15M PRN PO DECREASED GLUCOSE Last administered on 05/07 03:27; Admin Dose 15 GM; Start 04/11/17 at 16:30 Glucose (Glutose) 22.5 gm Q15M PRN PO DECREASED GLUCOSE; Start 04/11/17 at 16: 30 Dextrose (D50w Syringe) 25 ml Q15M PRN IV DECREASED GLUCOSE Last administered on 04/12/17 23:56; Admin Dose 25 ML; Start 04/11/17 at 16:30 Dextrose (D50w Syringe) 50 ml Q15M PRN IV DECREASED GLUCOSE; Start 04/11/17 at 16:30 Glucagon (Glucagen) 1 mg Q15M PRN IM DECREASED GLUCOSE; Start 04/11/17 at 16:30 Glucose (Glutose) 15 gm Q15M PRN BUCCAL DECREASED GLUCOSE; Start 04/11/17 at 16 :30 Metoclopramide HCl (Reglan) 10 mg Q6 IV Last administered on 05/22/17 12:59; Admin Dose 10 MG; Start 04/12/17 at 18:00 Insulin Aspart (Novolog Insulin Pen) NOVOLOG *MILD* ALGORI... Q6H SC Last administered on 05/22/17 05:33; Admin Dose 1 UNIT; Start 04/15/17 at 00:00 IV Flush (NS 10 ml) 10 ml PRN PRN IV FLUSH LINE; Start 04/15/17 at 13:00 Amiodarone HCl (Cordarone) 200 mg BID GTB Last administered on 05/22/17 10:14 ; Admin Dose 200 MG; Start 04/16/17 at 13:00 Heparin Sodium (Porcine) (Heparin (5000 Units/0.5 ml)) 5,000 unit BID SC Last administered on 04/30/17 21:03; Admin Dose 5,000 UNIT; Start 04/18/17 at 16:22; Status Future Hold Citalopram Hydrobromide (Celexa) 20 mg DAILY NGT Last administered on 10:13; Admin Dose 20 MG; Start 04/19/17 at 09:00 Hydralazine HCl (Apresoline) 20 mg Q6H PRN IV sbp ABOVE 160 Last administered on 05/21/17 12:40; Admin Dose 20 MG; Start 04/18/17 at 18:30 Chlorhexidine Gluconate (Peridex) 15 ml BID MT Last administered on 05/22/17 13:00; Admin Dose 15 ML; Start 04/22/17 at 21:00 Vitamin A/Vitamin D (Vitamin A & D Oint) 1 applic TID TOP Last administered on 05/22/17 10:17; Admin Dose 1 APPLIC; Start 04/22/17 at 21:00 Vitamin A/Vitamin D (Vitamin A & D Oint) 1 applic TID PRN TOP DRYNESS Last administered on 04/22/17 15:29; Admin Dose 1 APPLIC; Start 04/22/17 at 15:00 Acetaminophen/ Hydrocodone Bitart ([place] (5/325)) 1 tab Q6H GTB Last administered on 05/22/17 14:10; Admin Dose 1 TAB; Start 04/22/17 at 21:30 Spironolactone (Aldactone) 25 mg DAILY NGT Last administered on 05/22/17 10:14 ; Admin Dose 25 MG; Start 04/25/17 at 19:00; Status Future hold Diltiazem HCl (Cardizem Iv) 5 mg Q1H PRN IV HEART RATE GREATER THAN 120 Last administered on 04/29/17 06:17; Admin Dose 5 MG; Start 04/29/17 at 05:00 Metronidazole 500 mg 500 mg Q8 GTB Last administered on 05/22/17 14:04; Admin Dose 500 MG; Start 04/30/17 at 22:00 Sodium Chloride 1,000 ml @ 0 mls/hr Q0M IV Last administered on 05/01/17 03: 00; Admin Dose 1,000 MLS/HR; Start 05/01/17 at 03:00 Sodium Chloride 1,000 ml @ 0 mls/hr Q0M IV Last administered on 05/01/17 04: 00; Admin Dose 1,000 MLS/HR; Start 05/01/17 at 03:30 Diltiazem HCl (Cardizem-D5W 125 Mg/125 ml Drip) 125 ml @ 5 mls/hr TITRATE IV Last administered on 05/02/17 19:11; Admin Dose 5 MLS/HR; Start 05/02/17 at 19: 00 Metoprolol Tartrate (Lopressor) 25 mg QID GTB Last administered on 05/22/17 10 :15; Admin Dose 25 MG; Start 05/07/17 at 09:00 Furosemide (Lasix) 40 mg Q12 IV Last administered on 05/22/17 10:16; Admin Dose 40 MG; Start 05/08/17 at 09:00 Vitamin B Complex/ Vitamin C (Berocca) 1 cap DAILY PO Last administered on 05/22 10:11; Admin Dose 1 CAP; Start 05/13/17 at 09:00 Nystatin (Nystatin Susp) 5 ml QID PO Last administered on 05/22/17 13:00; Admin Dose 5 ML; Start 05/12/17 at 17:00 Hydrocortisone (Solu-Cortef) 20 mg TID IV Last administered on 05/22/17 10:16 ; Admin Dose 20 MG; Start 05/17/17 at 09:30 Aspirin (Aspirin) 81 mg DAILY NGT Last administered on 05/22/17 10:13; Admin Dose 81 MG; Start 05/19/17 at 09:00 Lansoprazole (Prevacid) 30 mg BID@06,18 GTB Last administered on 05/22/17 05: 28; Admin Dose 30 MG; Start 05/20/17 at 18:00 MARGOT WILLS NP May 22, 2017 16:48
[2017-05-22] MEDS: hydrALAzine 20 MG INJ IV PRN (19:59)
[2017-05-23] VITALS (32 sets, daily range): BP systolic 80–136; BP diastolic 42–74; PULSE 14–69; RESP 13–24
[2017-05-23] MEDS: METOCLOPRAMIDE 10 MG INJ IV SCH ×5 (00:34→23:00)
[2017-05-23] MEDS: LEVALBUTEROL (HFA) 15 GM INHALER INH SCH ×4 (01:03→20:11)
[2017-05-23] MEDS: HYDROCODONE/APAP (5/325) TAB GTB SCH ×4 (03:30→21:30)
[2017-05-23] MEDS: LANSOPRAZOLE 30 MG CAP GTB SCH ×2 (05:12→18:04)
[2017-05-23] MEDS: metroNIDAZOLE 500 MG TAB GTB SCH ×3 (05:12→22:54)
[2017-05-23] MEDS: INSULIN ASPART [NOVOLOG] 3 ML PEN SC SCH ×5 (05:19→23:12)
[2017-05-23] MEDS: LEVOTHYROXINE 100 MCG TAB GTB SCH (05:21)
[2017-05-23 07:01] LABS: BASOPHILS % 0.1 % (0.0-2.0); EOSINOPHILS # 0.1 10^3/ul (0.0-0.5); HEMATOCRIT 27.7 % (37.0-47.0); HEMOGLOBIN 9.2 g/dl (12.0-16.0); LYMPHOCYTES # 0.9 10^3/ul (0.8-2.9); LYMPHOCYTES % 7.8 % (15.0-51.0); MEAN CORPUSCULAR HEMOGLOBIN 31.4 pg (29.0-33.0); MEAN CORPUSCULAR HGB CONC 33.2 g/dl (32.0-37.0); MEAN CORPUSCULAR VOLUME 94.5 fl (82.0-101.0); MEAN PLATELET VOLUME 11.3 fl (7.4-10.4); MONOCYTE # 1.1 10^3/ul (0.3-0.9); MONOCYTES % 9.9 % (0.0-11.0); NEUTROPHIL # 8.5 10^3/ul (1.6-7.5); NEUTROPHILS % 76.8 % (39.0-77.0); PLATELET COUNT 157 10^3/UL (140-415); RED BLOOD COUNT 2.93 10^6/ul (4.20-5.40); RED CELL DISTRIBUTION WIDTH 21.3 % (11.5-14.5); WHITE BLOOD COUNT 11.1 10^3/ul (4.8-10.8)
[2017-05-23 07:24] LABS: CALCIUM 8.1 mg/dl (8.4-10.2); CREATININE 1.94 mg/dl (0.44-1.00); MAGNESIUM 2.4 mg/dl (1.7-2.5); PHOSPHORUS 3.9 mg/dl (2.5-4.9)
[2017-05-23] MEDS: CHLORHEXIDINE GLUCONATE 15 ML UD CUP MT SCH ×2 (08:55→22:54)
[2017-05-23] MEDS: FUROSEMIDE 40 MG INJ IV SCH ×2 (08:55→22:54)
[2017-05-23] MEDS: VITAMIN A & D 5 GM OINT PACKET TOP SCH ×3 (08:55→22:58)
[2017-05-23] MEDS: NYSTATIN SUSP 5 ML CUP PO SCH ×4 (08:55→22:54)
[2017-05-23] MEDS: VITAMIN B COMPLEX/VIT C CAP PO SCH (08:56)
[2017-05-23] MEDS: ASPIRIN 81 MG TAB NGT SCH (08:56)
[2017-05-23] MEDS: HYDROCORTISONE 100 MG INJ IV SCH ×3 (08:56→22:54)
[2017-05-23] MEDS: AMIODARONE 200 MG TAB GTB SCH ×2 (08:56→22:55)
[2017-05-23] MEDS: SPIRONOLACTONE 25 MG TAB NGT SCH (08:57)
[2017-05-23] MEDS: CITALOPRAM 20 MG TAB NGT SCH (08:57)
[2017-05-23] MEDS: METOPROLOL 25 MG TAB GTB SCH ×4 (08:57→22:55)
--- NOTE | 2017-05-23 10:08 | PN ---
DATE: 05/23/2017 SUBJECTIVE DATA: The patient is noted to be lethargic and has become more edematous. I spoke with the patient's , informing him that she will require permanent dialysis for the foreseeable future. The patient's agrees. Plan is to initiate dialysis again today, we will arrange for PermCath placement by Dr. Gonzales, and outpatient hemodialysis at [facility]. I also discussed with the about the possibility of holding [place]. He insist that his is in pain and would prefer to be routine with noted parameters. No other events noted. OBJECTIVE DATA: VITAL SIGNS: Blood pressure is 136/70, respirations 24, pulse 81, temperature 98.4. HEENT: Head is normocephalic. NECK: Supple. HEART: Regular rate. LUNGS: Show diminished breath sounds at the base. ABDOMEN: Soft, nontender to palpation. No rebound or guarding. EXTREMITIES: Negative for clubbing, cyanosis. Positive for edema, diffuse anasarca. DERMATOLOGIC: Clean. No rashes. MUSCULOSKELETAL: No joint effusion. NEUROLOGIC: No change in exam. MEDICATIONS: Reviewed. LABORATORY AND DIAGNOSTIC DATA: Show a white count 9.1, hemoglobin 9.2, crit 27.7, platelet count 156. Sodium 129, potassium 4.0, chloride 87, BUN 108, creatinine 1.94. ASSESSMENT AND PLAN: 1. Ventilatory-dependent respiratory failure. Vent settings reviewed. ABGs reviewed. We will continue to monitor. Follow up with Pulmonary. 2. History of thyroid cancer with tracheomalacia. The patient is status post ENT evaluation. Continue to monitor. 3. Nonoliguric acute kidney injury on top of chronic kidney disease. Etiology is secondary to acute tubular necrosis. The patient is currently is dialysis dependent. Unfortunately, has not shown recovery. Plan is to resume dialysis. We will have PermCath placement by Dr. Gonzales and arrange for outpatient hemodialysis. 4. Volume overload secondary to acute kidney injury and congestive heart failure. Continue ultrafiltration dialysis. Continue diuretic therapy. 5. Sepsis, status post shock secondary to aspiration pneumonia, fungemia. The patient is completing antibiotic course. 6. Adrenal insufficiency. Continue current steroid regimen per Endocrinology. 7. Encephalopathy. Etiology toxic metabolic, uremic. Continue to monitor. Continue dialysis. 8. Hypothyroidism. Continue Synthroid. 9. Hyponatremia. Second acute kidney injury. The patient will be dialyzed on 140 sodium bath. 10. Anemia. Monitor H and H levels. 11. Congestive heart failure. Continue medical management. 12. Left upper extremity deep vein thrombosis. The patient's anticoagulation is on hold secondary to gastrointestinal bleed. 13. Dysphagia, status post percutaneous endoscopic gastrostomy. Continue tube feeding. 14. Status upper gastrointestinal bleed. Continue proton pump inhibitor. 15. Gastrointestinal and deep venous thrombosis prophylaxis. Continue proton pump inhibitor and sequential leg squeezes. Dictated By: Abebe Valderrama DO /marquita/laith /Document#: [id number]
--- NOTE | 2017-05-23 11:55 | PN ---
Date/Time of Note Date/Time of Note DATE: 05/23/17 TIME: 11:49 Assessment/Plan Lines/Catheters IV Catheter Type (from [facility]): BHARTI CATH Latif in Place (from [facility]): Yes Assessment/Plan Chief Complaint/Hosp Course 1. Cholelithiasis: Tolerating tube feeds; no abdominal pain/discomfort/bloating ; +bowel function -No surgical intervention required at this time 2. Pneumonia: Recurrent +sputum cultures; appears comfortable, min sputum, no fevers, s/p abx -pulmonary toilet -wean as tolerated 3. Vent dependent respiratory failure: 2/2 aspiration PNA+ CHF;reintubated and extubated, coded 04/21 and 05/01; comfortable on vent; eager to wean her off vent, on SIMV -as above 4. KEYONNA: likely 2/2 septic shock; with + urine output; HD scheduled for today; will need [facility] HD -judicious fluid management -avoid nephrotoxic agents 5. Uncontrolled Afib: s/p amiodarone drip, on oral amiodarone; episodes of Afib Now SR -medical optimization 6. Leukocytosis with lactic acidosis: 2/2 pneumonia +/- steroids vs.fungemia vs other (urine, repeat blood cultures negative); up again today -per ID 7. Macrocytic anemia: chronic vs. dilutional vs. acute bleed vs. b12/folate deficiency; hh lower but no acute bleed noted -monitor -Transfuse as needed 8. Electrolyte imbalance: (hyponatremia, hypokalemia); improved -electrolyte optimization 9. CHF: BNP elevated -judicious fluid management -medical optimization 10. Adrenal Insufficiency -solucortef 11. Oral lesions: improving 12. Hypothyroidism; tsh elevated -on synthroid 13. Hypocalcemia with hypoalbuminemia -optimize nutrition 14. Bilateral upper extremity edema: hx(+) Thrombus; much improved -elevate extremities -supportive 15. Hypoalbuminemia: 2/2 malnutrition +/- inflammation; decreased; tolerating tf ; -nutrition optimization -as above Patient seen and examined in collaboration with Dr. Justus Antonio. Thank you Problems: Subjective 24 Hr Interval Summary More sleepy. More edematous. Comfortable on vent. Tolerating tf with +bowel function. No fevers, chills, n/v/d/dysuria, cp, palpitations, congested cough. Exam/Review of Systems Vital Signs Vitals Vital Signs Date Time Temp Pulse Resp B/P Pulse Ox O2 Delivery O2 Flow Rate FiO2 05/23/17 11:31 70 14 99 35 05/23/17 11:27 98.5 120/68 05/22/17 20:00 Mechanical Ventilator Intake and Output 05/22/17 05/22/17 05/23/17 14:59 22:59 06:59 Intake Total 1300 ml 1000 ml 950 ml Output Total 800 ml 800 ml 550 ml Balance 500 ml 200 ml 400 ml Exam Free Text/Dictation Constitutional: somnolent Head: atraumatic, normocephalic Eyes: PERRL, nl lids, nl sclera ENMT: No mucosa pink and moist (pink and moist with healing perioral lesions) Neck: non-tender, supple, tracheostomy Respiratory: diminished, comfortable on vent, min sputum Cardiovascular: nl pulses, regular rate and rhythm, Gastrointestinal: non distended, GT tubes site no erythema, no drainage, non tenderness, bowel sounds x 4 quads, soft; tf ongoing Genitourinary - Female: nl external genitalia Musculoskeletal: nl extremities to inspection Extremities: normal pulses, bilateral upper/lower extremity edema 2+; EVELIA 3+; edema worse Neurological: responsive Skin: nl turgor, No rash or lesions Lymph: nl lymph node Results Result Diagram: 05/23/17 0625 05/23/17 0626 ADDISON FREGOSO NP May 23, 2017 11:55
--- NOTE | 2017-05-23 15:05 | CONS ---
Date/Time of Note Date/Time of Note DATE: 05/23/17 TIME: 15:04 Consult Date/Type/Reason Admit Date/Time Apr 11, 2017 at 11:28 Initial Consult Date 04/12/17 Type of Consultation: CARDIOLOGY Ordering Provider: NINA MACIEL DO Subjective CARDIOLOGY FOLLOW UP NOTE: D/W D/W staff and rhythm was reviewed. pt remains in NSR. no afib overnight no chest pain or pressure or palpitations. pt still s/p trach on vent on tele. s/p transfusion on 05/14/17 pt is sleepy mostly. Objective: General: s/p trach on vent HEENT: NC/AT. . oropharynx with multiple lesions. . NECK: NO JVD. no stridor. s/p trach on vent CV: RRR. systolic ejection murmur; no gallop or rubs. PULM: + mild rhonchi. no wheezes. GI: SOFT, NT, ND, no rebound or guarding s/p PEG Extremity: 1-2+ B/L LE edema. no clubbing. neuro: drowsy sleepy Psych: calm rectal: deferred Derm: multiple echymosis : S/P mims catheter in place. Objective Vital Signs Date Time Temp Pulse Resp B/P Pulse Ox O2 Delivery O2 Flow Rate FiO2 05/23/17 13:25 71 14 99 35 05/23/17 11:27 98.5 120/68 05/22/17 20:00 Mechanical Ventilator Intake and Output 05/22/17 05/22/17 05/23/17 15:00 23:00 07:00 Intake Total 1300 ml 1000 ml 950 ml Output Total 800 ml 800 ml 550 ml Balance 500 ml 200 ml 400 ml Results/Medications Result Diagram: 05/23/17 0625 05/23/17 0626 Results 24 hrs Laboratory Tests Test 05/22/17 18:12 05/23/17 00:21 05/23/17 05:19 05/23/17 06:25 Bedside Glucose 142 131 140 White Blood Count 11.1 H Red Blood Count 2.93 L Hemoglobin 9.2 L Hematocrit 27.7 L Mean Corpuscular Volume 94.5 Mean Corpuscular Hemoglobin 31.4 Mean Corpuscular Hemoglobin Concent 33.2 Red Cell Distribution Width 21.3 H Platelet Count 157 Mean Platelet Volume 11.3 H Neutrophils % 76.8 Lymphocytes % 7.8 L Monocytes % 9.9 Eosinophils % 1.0 Basophils % 0.1 Nucleated Red Blood Cells % 0.0 Neutrophils # 8.5 H Lymphocytes # 0.9 Monocytes # 1.1 H Eosinophils # 0.1 Basophils # 0.0 Nucleated Red Blood Cells # 0.0 Test 05/23/17 06:26 05/23/17 11:50 Sodium Level 129 L Potassium Level 4.0 Chloride Level 87 L Carbon Dioxide Level 32 H Anion Gap 14 Blood Urea Nitrogen 108 H Creatinine 1.94 H Glucose Level 106 Calcium Level 8.1 L Phosphorus Level 3.9 Magnesium Level 2.4 Bedside Glucose 116 Medications Current Medications Metoprolol Tartrate (Lopressor) 5 mg Q4H PRN IV HR>110 Hold SBP<110 Last administered on 04/20/17 17:36; Admin Dose 5 MG; Start 04/11/17 at 13:30 Miscellaneous Information 1 ea NOTE XX ; Start 04/11/17 at 16:30 Glucose (Glutose) 15 gm Q15M PRN PO DECREASED GLUCOSE Last administered on 05/07 03:27; Admin Dose 15 GM; Start 04/11/17 at 16:30 Glucose (Glutose) 22.5 gm Q15M PRN PO DECREASED GLUCOSE; Start 04/11/17 at 16: 30 Dextrose (D50w Syringe) 25 ml Q15M PRN IV DECREASED GLUCOSE Last administered on 04/12/17 23:56; Admin Dose 25 ML; Start 04/11/17 at 16:30 Dextrose (D50w Syringe) 50 ml Q15M PRN IV DECREASED GLUCOSE; Start 04/11/17 at 16:30 Glucagon (Glucagen) 1 mg Q15M PRN IM DECREASED GLUCOSE; Start 04/11/17 at 16:30 Glucose (Glutose) 15 gm Q15M PRN BUCCAL DECREASED GLUCOSE; Start 04/11/17 at 16 :30 Metoclopramide HCl (Reglan) 10 mg Q6 IV Last administered on 05/23/17 11:50; Admin Dose 10 MG; Start 04/12/17 at 18:00 Insulin Aspart (Novolog Insulin Pen) NOVOLOG *MILD* ALGORI... Q6H SC Last administered on 05/22/17 18:15; Admin Dose 1 UNIT; Start 04/15/17 at 00:00 IV Flush (NS 10 ml) 10 ml PRN PRN IV FLUSH LINE; Start 04/15/17 at 13:00 Amiodarone HCl (Cordarone) 200 mg BID GTB Last administered on 05/23/17 08:56 ; Admin Dose 200 MG; Start 04/16/17 at 13:00 Heparin Sodium (Porcine) (Heparin (5000 Units/0.5 ml)) 5,000 unit BID SC Last administered on 04/30/17 21:03; Admin Dose 5,000 UNIT; Start 04/18/17 at 16:22; Status Future Hold Citalopram Hydrobromide (Celexa) 20 mg DAILY NGT Last administered on 08:57; Admin Dose 20 MG; Start 04/19/17 at 09:00 Hydralazine HCl (Apresoline) 20 mg Q6H PRN IV sbp ABOVE 160 Last administered on 05/22/17 19:59; Admin Dose 20 MG; Start 04/18/17 at 18:30 Chlorhexidine Gluconate (Peridex) 15 ml BID MT Last administered on 05/23/17 08:55; Admin Dose 15 ML; Start 04/22/17 at 21:00 Vitamin A/Vitamin D (Vitamin A & D Oint) 1 applic TID TOP Last administered on 05/23/17 12:38; Admin Dose 1 APPLIC; Start 04/22/17 at 21:00 Vitamin A/Vitamin D (Vitamin A & D Oint) 1 applic TID PRN TOP DRYNESS Last administered on 04/22/17 15:29; Admin Dose 1 APPLIC; Start 04/22/17 at 15:00 Acetaminophen/ Hydrocodone Bitart ([place] (5/325)) 1 tab Q6H GTB Last administered on 05/23/17 08:57; Admin Dose 1 TAB; Start 04/22/17 at 21:30 Spironolactone (Aldactone) 25 mg DAILY NGT Last administered on 05/23/17 08:57 ; Admin Dose 25 MG; Start 04/25/17 at 19:00; Status Future hold Diltiazem HCl (Cardizem Iv) 5 mg Q1H PRN IV HEART RATE GREATER THAN 120 Last administered on 04/29/17 06:17; Admin Dose 5 MG; Start 04/29/17 at 05:00 Metronidazole 500 mg 500 mg Q8 GTB Last administered on 05/23/17 14:19; Admin Dose 500 MG; Start 04/30/17 at 22:00 Sodium Chloride 1,000 ml @ 0 mls/hr Q0M IV Last administered on 05/01/17 03: 00; Admin Dose 1,000 MLS/HR; Start 05/01/17 at 03:00 Sodium Chloride 1,000 ml @ 0 mls/hr Q0M IV Last administered on 05/01/17 04: 00; Admin Dose 1,000 MLS/HR; Start 05/01/17 at 03:30 Diltiazem HCl (Cardizem-D5W 125 Mg/125 ml Drip) 125 ml @ 5 mls/hr TITRATE IV Last administered on 05/02/17 19:11; Admin Dose 5 MLS/HR; Start 05/02/17 at 19: 00 Metoprolol Tartrate (Lopressor) 25 mg QID GTB Last administered on 05/23/17 12 :38; Admin Dose 25 MG; Start 05/07/17 at 09:00 Furosemide (Lasix) 40 mg Q12 IV Last administered on 05/23/17 08:55; Admin Dose 40 MG; Start 05/08/17 at 09:00 Vitamin B Complex/ Vitamin C (Berocca) 1 cap DAILY PO Last administered on 05/23 08:56; Admin Dose 1 CAP; Start 05/13/17 at 09:00 Nystatin (Nystatin Susp) 5 ml QID PO Last administered on 05/23/17 12:37; Admin Dose 5 ML; Start 05/12/17 at 17:00 Hydrocortisone (Solu-Cortef) 20 mg TID IV Last administered on 05/23/17 12:38 ; Admin Dose 20 MG; Start 05/17/17 at 09:30 Aspirin (Aspirin) 81 mg DAILY NGT Last administered on 05/23/17 08:56; Admin Dose 81 MG; Start 05/19/17 at 09:00 Lansoprazole (Prevacid) 30 mg BID@06,18 GTB Last administered on 05/23/17 05: 12; Admin Dose 30 MG; Start 05/20/17 at 18:00 Assessment/Plan Chief Complaint/Hosp Course 1. acute on chronic hypoxemic respiratory failure: 2. NSTEMI: due to demand ischemia. 3. CHF/ fluid overload: due to diastolic heart failure 4. moderate 5. Arrhythmia and P afib, frequent PVC: currently in NSR. 6. ANEMIA: s/p multiple transfusion 7. s/p pneumonia, . 8. s/p sepsis and shock: BP is stable now. 9. Anasarca 10. s/p cardiopulm arrest due to resp failure 11. renal failure 12. coagulopathy Rec: cont resp care as per PULM Team. correct lytes prn. CONT betablocker as tolerated. . cont thyroid supplement . cont tele monitoring HD/ ultrafiltration will be deferred to renal. HD is being arranged for today transfuse prn low dose ASA 81 mg only due to recurrent anemia. THANK YOU. Problems: FRANCISCO BLACKWOOD MD May 23, 2017 15:05
--- NOTE | 2017-05-23 15:51 | CONS ---
Date/Time of Note Date/Time of Note DATE: 05/23/17 TIME: 15:51 Consult Date/Type/Reason Admit Date/Time Apr 11, 2017 at 11:28 Initial Consult Date 04/12/17 Type of Consultation: Pulmonary Ordering Provider: NINA MACIEL DO Subjective No significant changes. Objective Vital Signs Date Time Temp Pulse Resp B/P Pulse Ox O2 Delivery O2 Flow Rate FiO2 05/23/17 15:17 98.0 83 18 116/61 97 05/23/17 13:25 35 05/22/17 20:00 Mechanical Ventilator Intake and Output 05/22/17 05/22/17 05/23/17 14:59 22:59 06:59 Intake Total 1300 ml 1000 ml 950 ml Output Total 800 ml 800 ml 550 ml Balance 500 ml 200 ml 400 ml Exam PHYSICAL EXAMINATION GENERAL: Elderly lady on mechanical ventilation via tracheostomy VITAL SIGNS: see below. HEENT: Pupils equal, round, and reactive to light. Tracheostomy site clean and intact. CARDIAC: S1, S2, 1/6 systolic ejection murmur CHEST: Diminished air entry bilaterally. ABDOMEN: Mildly distended. Bowel sounds present no guarding or rebound EXTREMITIES: No cyanosis, clubbing edema +1 NEUROLOGIC: Generalized weakness Results/Medications Result Diagram: 05/23/17 0625 05/23/17 0626 Results 24 hrs Laboratory Tests Test 05/22/17 18:12 05/23/17 00:21 05/23/17 05:19 05/23/17 06:25 Bedside Glucose 142 131 140 White Blood Count 11.1 H Red Blood Count 2.93 L Hemoglobin 9.2 L Hematocrit 27.7 L Mean Corpuscular Volume 94.5 Mean Corpuscular Hemoglobin 31.4 Mean Corpuscular Hemoglobin Concent 33.2 Red Cell Distribution Width 21.3 H Platelet Count 157 Mean Platelet Volume 11.3 H Neutrophils % 76.8 Lymphocytes % 7.8 L Monocytes % 9.9 Eosinophils % 1.0 Basophils % 0.1 Nucleated Red Blood Cells % 0.0 Neutrophils # 8.5 H Lymphocytes # 0.9 Monocytes # 1.1 H Eosinophils # 0.1 Basophils # 0.0 Nucleated Red Blood Cells # 0.0 Test 05/23/17 06:26 05/23/17 11:50 Sodium Level 129 L Potassium Level 4.0 Chloride Level 87 L Carbon Dioxide Level 32 H Anion Gap 14 Blood Urea Nitrogen 108 H Creatinine 1.94 H Glucose Level 106 Calcium Level 8.1 L Phosphorus Level 3.9 Magnesium Level 2.4 Bedside Glucose 116 Medications Current Medications Metoprolol Tartrate (Lopressor) 5 mg Q4H PRN IV HR>110 Hold SBP<110 Last administered on 04/20/17 17:36; Admin Dose 5 MG; Start 04/11/17 at 13:30 Miscellaneous Information 1 ea NOTE XX ; Start 04/11/17 at 16:30 Glucose (Glutose) 15 gm Q15M PRN PO DECREASED GLUCOSE Last administered on 05/07 03:27; Admin Dose 15 GM; Start 04/11/17 at 16:30 Glucose (Glutose) 22.5 gm Q15M PRN PO DECREASED GLUCOSE; Start 04/11/17 at 16: 30 Dextrose (D50w Syringe) 25 ml Q15M PRN IV DECREASED GLUCOSE Last administered on 04/12/17 23:56; Admin Dose 25 ML; Start 04/11/17 at 16:30 Dextrose (D50w Syringe) 50 ml Q15M PRN IV DECREASED GLUCOSE; Start 04/11/17 at 16:30 Glucagon (Glucagen) 1 mg Q15M PRN IM DECREASED GLUCOSE; Start 04/11/17 at 16:30 Glucose (Glutose) 15 gm Q15M PRN BUCCAL DECREASED GLUCOSE; Start 04/11/17 at 16 :30 Metoclopramide HCl (Reglan) 10 mg Q6 IV Last administered on 05/23/17 11:50; Admin Dose 10 MG; Start 04/12/17 at 18:00 Insulin Aspart (Novolog Insulin Pen) NOVOLOG *MILD* ALGORI... Q6H SC Last administered on 05/22/17 18:15; Admin Dose 1 UNIT; Start 04/15/17 at 00:00 IV Flush (NS 10 ml) 10 ml PRN PRN IV FLUSH LINE; Start 04/15/17 at 13:00 Amiodarone HCl (Cordarone) 200 mg BID GTB Last administered on 05/23/17 08:56 ; Admin Dose 200 MG; Start 04/16/17 at 13:00 Heparin Sodium (Porcine) (Heparin (5000 Units/0.5 ml)) 5,000 unit BID SC Last administered on 04/30/17 21:03; Admin Dose 5,000 UNIT; Start 04/18/17 at 16:22; Status Future Hold Citalopram Hydrobromide (Celexa) 20 mg DAILY NGT Last administered on 08:57; Admin Dose 20 MG; Start 04/19/17 at 09:00 Hydralazine HCl (Apresoline) 20 mg Q6H PRN IV sbp ABOVE 160 Last administered on 05/22/17 19:59; Admin Dose 20 MG; Start 04/18/17 at 18:30 Chlorhexidine Gluconate (Peridex) 15 ml BID MT Last administered on 05/23/17 08:55; Admin Dose 15 ML; Start 04/22/17 at 21:00 Vitamin A/Vitamin D (Vitamin A & D Oint) 1 applic TID TOP Last administered on 05/23/17 12:38; Admin Dose 1 APPLIC; Start 04/22/17 at 21:00 Vitamin A/Vitamin D (Vitamin A & D Oint) 1 applic TID PRN TOP DRYNESS Last administered on 04/22/17 15:29; Admin Dose 1 APPLIC; Start 04/22/17 at 15:00 Acetaminophen/ Hydrocodone Bitart ([place] (5/325)) 1 tab Q6H GTB Last administered on 05/23/17 08:57; Admin Dose 1 TAB; Start 04/22/17 at 21:30 Spironolactone (Aldactone) 25 mg DAILY NGT Last administered on 05/23/17 08:57 ; Admin Dose 25 MG; Start 04/25/17 at 19:00; Status Future hold Diltiazem HCl (Cardizem Iv) 5 mg Q1H PRN IV HEART RATE GREATER THAN 120 Last administered on 04/29/17 06:17; Admin Dose 5 MG; Start 04/29/17 at 05:00 Metronidazole 500 mg 500 mg Q8 GTB Last administered on 05/23/17 14:19; Admin Dose 500 MG; Start 04/30/17 at 22:00 Sodium Chloride 1,000 ml @ 0 mls/hr Q0M IV Last administered on 05/01/17 03: 00; Admin Dose 1,000 MLS/HR; Start 05/01/17 at 03:00 Sodium Chloride 1,000 ml @ 0 mls/hr Q0M IV Last administered on 05/01/17 04: 00; Admin Dose 1,000 MLS/HR; Start 05/01/17 at 03:30 Diltiazem HCl (Cardizem-D5W 125 Mg/125 ml Drip) 125 ml @ 5 mls/hr TITRATE IV Last administered on 05/02/17 19:11; Admin Dose 5 MLS/HR; Start 05/02/17 at 19: 00 Metoprolol Tartrate (Lopressor) 25 mg QID GTB Last administered on 05/23/17 12 :38; Admin Dose 25 MG; Start 05/07/17 at 09:00 Furosemide (Lasix) 40 mg Q12 IV Last administered on 05/23/17 08:55; Admin Dose 40 MG; Start 05/08/17 at 09:00 Vitamin B Complex/ Vitamin C (Berocca) 1 cap DAILY PO Last administered on 05/23 08:56; Admin Dose 1 CAP; Start 05/13/17 at 09:00 Nystatin (Nystatin Susp) 5 ml QID PO Last administered on 05/23/17 12:37; Admin Dose 5 ML; Start 05/12/17 at 17:00 Hydrocortisone (Solu-Cortef) 20 mg TID IV Last administered on 05/23/17 12:38 ; Admin Dose 20 MG; Start 05/17/17 at 09:30 Aspirin (Aspirin) 81 mg DAILY NGT Last administered on 05/23/17 08:56; Admin Dose 81 MG; Start 05/19/17 at 09:00 Lansoprazole (Prevacid) 30 mg BID@06,18 GTB Last administered on 05/23/17 05: 12; Admin Dose 30 MG; Start 05/20/17 at 18:00 Assessment/Plan Chief Complaint/Hosp Course Additional Assessment/Plan IMP: 1. VDRF 3. s/p Hypercapnic Respiratory Failure--likely due to critical illness myopathy/ neuropathy 4. s/p septic shock 5. Demand Ischemia 6. Cholecystitis 7. Encephalopathy toxic metabolic 8. Leukocytosis improved. RECS: 1. Vent support, trial of SIMV. hold off further weaning for now. 2. BDs 3. TFs/Free H2O 4. Hemodialysis on hold Discussed with patient's at bedside. Problems: DARWIN CRAWFORD MD, [facility] May 23, 2017 15:51
[2017-05-23] MEDS ORDERED: ALTEPLASE (CATHFLO) 2 MG INJ CATHETER ONE (18:30)
--- NOTE | 2017-05-23 22:35 | CONS ---
Date/Time of Note Date/Time of Note DATE: 05/23/17 TIME: 22:31 Assessment/Plan Assessment/Plan Chief Complaint/Hosp Course ID PROGRESS NOTE CURRENT ABX=>OFF ABX Day #4 * She has completed a 10 day course for recurrent PNA/sepsis 24H INTERVAL SUMMARY/HOSPITAL COURSE * Stable off ABX -- worked with PTx today, awake/alert/oriented/responsive * No fevers, WBC up slightly PHYSICAL EXAMINATION: GENERAL: 66 yo F, stable on the Vent HEENT: Atraumatic, (+)Lip lesions well healed == Facial edema is much better NECK: (+)Trach in place secure to VENT CHEST: Rise symmetrical w/coarse BS, scattered rales/rhonchi ABDOMEN: Soft, peg EXTREMITIES: Warm, moves extremities ID ASSESSMENT: 66 yo F w/PMHx tongue cancer, chronic trach re-admit [facility] from SNF with: 1. s/p Acute severe sepsis/shock on admission w/(+)fever, tachycardia, lactic acidosis, leukocytosis, (+)troponin leak = RESOLVED * Leukocytosis persisting= MILD => IV Steroids onboard * Fungemia => repeat BCx negative 2. Anasarca w/increased facial edema/bilateral lip edema w/resolution of HSV lip lesions => IMPROVED * -- facial edema is worse due to patient preference while sitting up to lean her head forward w/neck flexion over her trach/trach-tie -- this position compromised jugular venous return. 3. Acute respiratory failure = recurrent issue s/p intubation x3rd episode w/ extubation, now with Trach secure to Vent 3. HCAP=> Recurrent Aspiration PNA post emesis // Hx of GNR tracheobronchitis * Sputum 04/21/17 (+)Yeast * Sputum 05/06/17 (+)PSAR 4. Acute CHF w/elevated BNP 8000 in setting tachycardia, sepsis, pulmonary edema on CXR 5. s/p Nausea w/emesis on admission -> RESOLVED -- This has been recurrent issue , etiology of recurrent ASP PNA/Pulm Sepsis * Query: DM Autonomic Gastroparesis * GERD 6. Cholelithiasis w/dilated CBD->HIDA scan (+cholecystitis 04/12/17=> s/p Mansi Drain 04/17/17, no surgery per GI => Asymptomatic/Stable 7. Acute renal failure = started on HD 8. Dysphagia sp PEG placement 9. Paroxysmal Afib 10. NSTEMI in setting sepsis, tachycardia, acute hypoxic respiratory failure, acute CHF exacerbation 11. Elevated glucose - iatrogenic diabetes while on IV steroids 12. Leukocytosis = partial steroids demargination 13. Lip lesions => consistent w/herpes simplex virus outbreak -> HEALED 14. s/p GIB associates with Acute on chronic anemia secondary to AVM ==> stopped , status post EGD on May 02 with injection of epinephrine 15. Recent (+)C.Diff on 03/07/16 (treated) w/(-)C.Diff 03/20/17 => Monitor for recurrent (-) MRSA Nares screen (04/03/17) INVASIVES: Trach, PEG, FC, R-FEM Amrit (05/04/17) ABX ALLERGY: Iodine CURRENT ABX=>OFF ABX Day #3 She has completed a 10 day course for recurrent ASP PNA/sepsis s/p Flagyl, + Cefepime #10+ Colistin INH #10 => DC'd 05/19/17 Valtrex,-> DC 05/17 Cancidas -> DC 05/10 Merrem -> DC'd 05/08 She completed a 14 day course upon admission for ASP PNA was OFF ABX then re- aspirated * Merrem #14 total -> DC'd 04/26=> Restarted 05/08 ID PLAN=> Monitor her OFF ABX * * Consider addition of Erythromycin for improved bowel motility * => Query gastroparesis 2/2 DM ? (+)Recurrent aspiration + GERD Hiatal hernia HIGH RISK: Recurrent sepsis do to multiple invasives + Hx of recurrent ASPIRATION 1. Continue Nystatin PO oral swish spit + Vit B/C complex -- lip/mouth lesions healing 2. Repeat micro PRN Temp >101.5 and/or other clinical indicators * [facility] Nursing Communication Order placed as below: => For temp >101.5 please enter and complete the following: * 1. Blood Cx x 2 via the PICC Line * 2. BCX x2 via HD line to be done w/next HD after the fever * 3. Sent UA C&S - may straight cath or place FC for clean sample * 4. Send Stool for C.Diff x1 * 5. Place order to pharmacy for Vancomycin IV dose per pharmacy after blood cx obtained * 6. Place order for Gentamicin IV dose per pharmacy after blood cx obtained. * 7. Please do not call primary or ID -- simply record the fever in the CPRS vitals where primary and ID can see the temperature on the daily chart. Thank you kindly . . Problems: Consultation Date/Type/Reason Admit Date/Time Apr 11, 2017 at 11:28 Initial Consult Date 04/11/17 Type of Consultation: ID Referring Provider: NINA MACIEL DO Exam/Review of Systems Vital Signs Vitals Vital Signs Date Time Temp Pulse Resp B/P Pulse Ox O2 Delivery O2 Flow Rate FiO2 05/23/17 20:23 69 05/23/17 20:21 97.5 15 123/58 99 05/23/17 17:10 35 05/22/17 20:00 Mechanical Ventilator Intake and Output 05/22/17 05/22/17 05/23/17 15:00 23:00 07:00 Intake Total 1300 ml 1000 ml 950 ml Output Total 800 ml 800 ml 550 ml Balance 500 ml 200 ml 400 ml Results Result Diagram: 05/23/17 0625 05/23/17 0626 Results 24 hrs Laboratory Tests Test 05/23/17 00:21 05/23/17 05:19 05/23/17 06:25 05/23/17 06:26 Bedside Glucose 131 140 White Blood Count 11.1 H Red Blood Count 2.93 L Hemoglobin 9.2 L Hematocrit 27.7 L Mean Corpuscular Volume 94.5 Mean Corpuscular Hemoglobin 31.4 Mean Corpuscular Hemoglobin Concent 33.2 Red Cell Distribution Width 21.3 H Platelet Count 157 Mean Platelet Volume 11.3 H Neutrophils % 76.8 Lymphocytes % 7.8 L Monocytes % 9.9 Eosinophils % 1.0 Basophils % 0.1 Nucleated Red Blood Cells % 0.0 Neutrophils # 8.5 H Lymphocytes # 0.9 Monocytes # 1.1 H Eosinophils # 0.1 Basophils # 0.0 Nucleated Red Blood Cells # 0.0 Sodium Level 129 L Potassium Level 4.0 Chloride Level 87 L Carbon Dioxide Level 32 H Anion Gap 14 Blood Urea Nitrogen 108 H Creatinine 1.94 H Glucose Level 106 Calcium Level 8.1 L Phosphorus Level 3.9 Magnesium Level 2.4 Test 05/23/17 11:50 05/23/17 18:06 Bedside Glucose 116 159 Medications Medications Current Medications Metoprolol Tartrate (Lopressor) 5 mg Q4H PRN IV HR>110 Hold SBP<110 Last administered on 04/20/17 17:36; Admin Dose 5 MG; Start 04/11/17 at 13:30 Miscellaneous Information 1 ea NOTE XX ; Start 04/11/17 at 16:30 Glucose (Glutose) 15 gm Q15M PRN PO DECREASED GLUCOSE Last administered on 05/07 03:27; Admin Dose 15 GM; Start 04/11/17 at 16:30 Glucose (Glutose) 22.5 gm Q15M PRN PO DECREASED GLUCOSE; Start 04/11/17 at 16: 30 Dextrose (D50w Syringe) 25 ml Q15M PRN IV DECREASED GLUCOSE Last administered on 04/12/17 23:56; Admin Dose 25 ML; Start 04/11/17 at 16:30 Dextrose (D50w Syringe) 50 ml Q15M PRN IV DECREASED GLUCOSE; Start 04/11/17 at 16:30 Glucagon (Glucagen) 1 mg Q15M PRN IM DECREASED GLUCOSE; Start 04/11/17 at 16:30 Glucose (Glutose) 15 gm Q15M PRN BUCCAL DECREASED GLUCOSE; Start 04/11/17 at 16 :30 Metoclopramide HCl (Reglan) 10 mg Q6 IV Last administered on 05/23/17 18:04; Admin Dose 10 MG; Start 04/12/17 at 18:00 Insulin Aspart (Novolog Insulin Pen) NOVOLOG *MILD* ALGORI... Q6H SC Last administered on 05/23/17 18:10; Admin Dose 1 UNIT; Start 04/15/17 at 00:00 IV Flush (NS 10 ml) 10 ml PRN PRN IV FLUSH LINE; Start 04/15/17 at 13:00 Amiodarone HCl (Cordarone) 200 mg BID GTB Last administered on 05/23/17 08:56 ; Admin Dose 200 MG; Start 04/16/17 at 13:00 Heparin Sodium (Porcine) (Heparin (5000 Units/0.5 ml)) 5,000 unit BID SC Last administered on 04/30/17 21:03; Admin Dose 5,000 UNIT; Start 04/18/17 at 16:22; Status Future Hold Citalopram Hydrobromide (Celexa) 20 mg DAILY NGT Last administered on 08:57; Admin Dose 20 MG; Start 04/19/17 at 09:00 Hydralazine HCl (Apresoline) 20 mg Q6H PRN IV sbp ABOVE 160 Last administered on 05/22/17 19:59; Admin Dose 20 MG; Start 04/18/17 at 18:30 Chlorhexidine Gluconate (Peridex) 15 ml BID MT Last administered on 05/23/17 08:55; Admin Dose 15 ML; Start 04/22/17 at 21:00 Vitamin A/Vitamin D (Vitamin A & D Oint) 1 applic TID TOP Last administered on 05/23/17 12:38; Admin Dose 1 APPLIC; Start 04/22/17 at 21:00 Vitamin A/Vitamin D (Vitamin A & D Oint) 1 applic TID PRN TOP DRYNESS Last administered on 04/22/17 15:29; Admin Dose 1 APPLIC; Start 04/22/17 at 15:00 Acetaminophen/ Hydrocodone Bitart ([place] (5/325)) 1 tab Q6H GTB Last administered on 05/23/17 15:58; Admin Dose 1 TAB; Start 04/22/17 at 21:30 Spironolactone (Aldactone) 25 mg DAILY NGT Last administered on 05/23/17 08:57 ; Admin Dose 25 MG; Start 04/25/17 at 19:00; Status Future hold Diltiazem HCl (Cardizem Iv) 5 mg Q1H PRN IV HEART RATE GREATER THAN 120 Last administered on 04/29/17 06:17; Admin Dose 5 MG; Start 04/29/17 at 05:00 Metronidazole 500 mg 500 mg Q8 GTB Last administered on 05/23/17 14:19; Admin Dose 500 MG; Start 04/30/17 at 22:00 Sodium Chloride 1,000 ml @ 0 mls/hr Q0M IV Last administered on 05/01/17 03: 00; Admin Dose 1,000 MLS/HR; Start 05/01/17 at 03:00 Sodium Chloride 1,000 ml @ 0 mls/hr Q0M IV Last administered on 05/01/17 04: 00; Admin Dose 1,000 MLS/HR; Start 05/01/17 at 03:30 Diltiazem HCl (Cardizem-D5W 125 Mg/125 ml Drip) 125 ml @ 5 mls/hr TITRATE IV Last administered on 05/02/17 19:11; Admin Dose 5 MLS/HR; Start 05/02/17 at 19: 00 Metoprolol Tartrate (Lopressor) 25 mg QID GTB Last administered on 05/23/17 12 :38; Admin Dose 25 MG; Start 05/07/17 at 09:00 Furosemide (Lasix) 40 mg Q12 IV Last administered on 05/23/17 08:55; Admin Dose 40 MG; Start 05/08/17 at 09:00 Vitamin B Complex/ Vitamin C (Berocca) 1 cap DAILY PO Last administered on 05/23 08:56; Admin Dose 1 CAP; Start 05/13/17 at 09:00 Nystatin (Nystatin Susp) 5 ml QID PO Last administered on 05/23/17 16:41; Admin Dose 5 ML; Start 05/12/17 at 17:00 Hydrocortisone (Solu-Cortef) 20 mg TID IV Last administered on 05/23/17 12:38 ; Admin Dose 20 MG; Start 05/17/17 at 09:30 Aspirin (Aspirin) 81 mg DAILY NGT Last administered on 05/23/17 08:56; Admin Dose 81 MG; Start 05/19/17 at 09:00 Lansoprazole (Prevacid) 30 mg BID@,18 GTB Last administered on 05/23/17 18: 04; Admin Dose 30 MG; Start 05/20/17 at 18:00 MARGOT WILLS NP May 23, 2017 22:34
[2017-05-24] VITALS (31 sets, daily range): BP systolic 98–132; BP diastolic 44–79; PULSE 69–82; RESP 12–68
[2017-05-24] MEDS: LEVALBUTEROL (HFA) 15 GM INHALER INH SCH ×4 (02:15→20:16)
[2017-05-24] MEDS: HYDROCODONE/APAP (5/325) TAB GTB SCH ×4 (03:30→21:56)
[2017-05-24] MEDS: METOCLOPRAMIDE 10 MG INJ IV SCH ×3 (05:32→17:26)
[2017-05-24] MEDS: LEVOTHYROXINE 100 MCG TAB GTB SCH (05:32)
[2017-05-24] MEDS: LANSOPRAZOLE 30 MG CAP GTB SCH ×2 (05:32→17:26)
[2017-05-24] MEDS: metroNIDAZOLE 500 MG TAB GTB SCH ×3 (05:33→21:55)
[2017-05-24] MEDS: INSULIN ASPART [NOVOLOG] 3 ML PEN SC SCH ×3 (06:00→17:51)
[2017-05-24 06:22] LABS: ABNORMAL IP MESSAGE 1; BASOPHILS % 0.1 % (0.0-2.0); EOSINOPHILS % 0.4 % (0.0-7.0); HEMATOCRIT 26.1 % (37.0-47.0); HEMOGLOBIN 8.7 g/dl (12.0-16.0); LYMPHOCYTES # 0.6 10^3/ul (0.8-2.9); LYMPHOCYTES % 6.2 % (15.0-51.0); MEAN CORPUSCULAR HEMOGLOBIN 31.9 pg (29.0-33.0); MEAN CORPUSCULAR HGB CONC 33.3 g/dl (32.0-37.0); MEAN CORPUSCULAR VOLUME 95.6 fl (82.0-101.0); MEAN PLATELET VOLUME 11.3 fl (7.4-10.4); MONOCYTE # 0.9 10^3/ul (0.3-0.9); MONOCYTES % 9.6 % (0.0-11.0); NEUTROPHIL # 7.4 10^3/ul (1.6-7.5); NEUTROPHILS % 79.4 % (39.0-77.0); PLATELET COUNT 149 10^3/UL (140-415); RED BLOOD COUNT 2.73 10^6/ul (4.20-5.40); RED CELL DISTRIBUTION WIDTH 21.7 % (11.5-14.5); WHITE BLOOD COUNT 9.3 10^3/ul (4.8-10.8)
[2017-05-24 07:00] LABS: CALCIUM 8.2 mg/dl (8.4-10.2); CREATININE 1.83 mg/dl (0.44-1.00); MAGNESIUM 2.4 mg/dl (1.7-2.5); PHOSPHORUS 3.7 mg/dl (2.5-4.9); POTASSIUM 4.1 mmol/L (3.5-5.1)
[2017-05-24 07:02] LABS: POSITIVE DIFF @See below
[2017-05-24] MEDS: METOPROLOL 25 MG TAB GTB SCH ×4 (09:00→21:55)
--- NOTE | 2017-05-24 09:35 | PN ---
DATE: 05/24/2017 SUBJECTIVE DATA: The patient had hemodialysis yesterday. The patient's catheter, however, was not working appropriately. Unable to do full session dialysis. The patient is to have dialysis again today. No other events noted. OBJECTIVE DATA: VITAL SIGNS: Blood pressure is 122/65, respirations 18, pulse 72, temperature 97.5. HEENT: Head is normocephalic. NECK: Supple. HEART: Regular rate. LUNGS: Diminished breath sounds at the base. ABDOMEN: Soft, nontender to palpation. No rebound or guarding. EXTREMITIES: Negative for clubbing, cyanosis. Positive edema, diffuse anasarca. DERMATOLOGIC: No rashes. MUSCULOSKELETAL: No joint effusion. NEUROLOGIC: No change in exam. MEDICATIONS: Reviewed. LABORATORY AND DIAGNOSTIC DATA: Shows sodium 126, potassium 4.1, BUN 100, creatinine 1.83. White count 9.3, hemoglobin 8.7, hematocrit 26.1, platelet count is 149,000. ASSESSMENT AND PLAN: 1. Ventilator dependent respiratory failure. The patient's ventilator settings have been reviewed. Arterial blood gases were reviewed. Continue to monitor. Follow up with Pulmonary. 2. History of thyroid cancer, with tracheomalacia. Patient is status post-trach. Status post-ear, nose, and throat evaluation. 3. Nonoliguric acute kidney injury on top of chronic kidney disease. Etiology secondary to acute tubular necrosis. The patient is currently dialysis dependent. Plan is for Permacath placement with Dr. Gonzales, will arrange for outpatient dialysis. Patient will have dialysis again today. 4. Volume overload secondary to acute kidney injury and congestive heart failure. Continue ultrafiltration with dialysis. 5. Sepsis, status post-shock secondary to aspiration pneumonia. The patient is completing antibiotic course. 6. Adrenal insufficiency. Continue current steroid regimen. 7. Encephalopathy. Etiology is toxic metabolic. Continue dialysis. Continue medical management. 8. Hypothyroidism. Continue Synthroid. 9. Hyponatremia. Plan is to discontinue all free water flushes. Continue to monitor. Patient will be dialyzed on a 140 sodium bath. 10. Anemia. Monitor hemoglobin and hematocrit levels. 11. Congestive heart failure. Continue medical management. 12. Left upper extremity deep vein thrombosis. The patient's anticoagulation is on hold secondary to gastrointestinal bleed. Continue to monitor. 13. Dysphagia. Continue tube feeding. 14. Status post-upper gastrointestinal bleed. 15. Gastrointestinal and deep venous thrombosis prophylaxis. Continue PPI and sequential leg squeezes. Dictated By: Abebe Valderrama DO /marquita/dahiana /Document#: [id number]
[2017-05-24] MEDS: HYDROCORTISONE 100 MG INJ IV SCH ×3 (11:26→21:55)
[2017-05-24] MEDS: FUROSEMIDE 40 MG INJ IV SCH ×2 (11:27→21:54)
[2017-05-24] MEDS: CITALOPRAM 20 MG TAB NGT SCH (11:28)
[2017-05-24] MEDS: VITAMIN B COMPLEX/VIT C CAP PO SCH (11:28)
[2017-05-24] MEDS: SPIRONOLACTONE 25 MG TAB NGT SCH (11:29)
[2017-05-24] MEDS: ASPIRIN 81 MG TAB NGT SCH (11:29)
[2017-05-24] MEDS: AMIODARONE 200 MG TAB GTB SCH ×2 (12:31→21:56)
[2017-05-24] MEDS: MULTIVITAMINS 30 ML CUP GTB SCH (12:31)
[2017-05-24] MEDS: CHLORHEXIDINE GLUCONATE 15 ML UD CUP MT SCH ×2 (12:31→21:54)
[2017-05-24] MEDS: NYSTATIN SUSP 5 ML CUP PO SCH ×4 (12:32→21:55)
[2017-05-24] MEDS: VITAMIN A & D 5 GM OINT PACKET TOP SCH ×3 (12:32→21:55)
--- NOTE | 2017-05-24 13:09 | CONS ---
Date/Time of Note Date/Time of Note DATE: 05/24/17 TIME: 13:08 Consult Date/Type/Reason Admit Date/Time Apr 11, 2017 at 11:28 Initial Consult Date 04/12/17 Type of Consultation: Pulmonary Ordering Provider: NINA MACIEL DO Subjective No significant changes. Objective Vital Signs Date Time Temp Pulse Resp B/P Pulse Ox O2 Delivery O2 Flow Rate FiO2 05/24/17 12:12 75 05/24/17 11:47 98.0 18 115/59 97 05/24/17 11:10 35 05/22/17 20:00 Mechanical Ventilator Intake and Output 05/23/17 05/23/17 05/24/17 15:00 23:00 07:00 Intake Total 950 ml Output Total 850 ml Balance 100 ml Exam PHYSICAL EXAMINATION GENERAL: Elderly lady on mechanical ventilation via tracheostomy VITAL SIGNS: see below. HEENT: Pupils equal, round, and reactive to light. Tracheostomy site clean and intact. CARDIAC: S1, S2, 1/6 systolic ejection murmur CHEST: Diminished air entry bilaterally. ABDOMEN: Mildly distended. Bowel sounds present no guarding or rebound EXTREMITIES: No cyanosis, clubbing edema +1 NEUROLOGIC: Generalized weakness Results/Medications Result Diagram: 05/24/17 0529 05/24/17 0529 Results 24 hrs Laboratory Tests Test 05/23/17 18:06 05/23/17 23:12 05/24/17 05:29 05/24/17 05:50 Bedside Glucose 159 110 128 White Blood Count 9.3 Red Blood Count 2.73 L Hemoglobin 8.7 L Hematocrit 26.1 L Mean Corpuscular Volume 95.6 Mean Corpuscular Hemoglobin 31.9 Mean Corpuscular Hemoglobin Concent 33.3 Red Cell Distribution Width 21.7 H Platelet Count 149 Mean Platelet Volume 11.3 H Neutrophils % 79.4 H Lymphocytes % 6.2 L Monocytes % 9.6 Eosinophils % 0.4 Basophils % 0.1 Nucleated Red Blood Cells % 0.0 Neutrophils # 7.4 Lymphocytes # 0.6 L Monocytes # 0.9 Eosinophils # 0.0 Basophils # 0.0 Nucleated Red Blood Cells # 0.0 Sodium Level 126 L Potassium Level 4.1 Chloride Level 89 L Carbon Dioxide Level 32 H Anion Gap 9 # Blood Urea Nitrogen 101 H Creatinine 1.83 H Glucose Level 112 Calcium Level 8.2 L Phosphorus Level 3.7 Magnesium Level 2.4 Test 05/24/17 11:19 Bedside Glucose 165 Medications Current Medications Metoprolol Tartrate (Lopressor) 5 mg Q4H PRN IV HR>110 Hold SBP<110 Last administered on 04/20/17 17:36; Admin Dose 5 MG; Start 04/11/17 at 13:30 Miscellaneous Information 1 ea NOTE XX ; Start 04/11/17 at 16:30 Glucose (Glutose) 15 gm Q15M PRN PO DECREASED GLUCOSE Last administered on 05/07 03:27; Admin Dose 15 GM; Start 04/11/17 at 16:30 Glucose (Glutose) 22.5 gm Q15M PRN PO DECREASED GLUCOSE; Start 04/11/17 at 16: 30 Dextrose (D50w Syringe) 25 ml Q15M PRN IV DECREASED GLUCOSE Last administered on 04/12/17 23:56; Admin Dose 25 ML; Start 04/11/17 at 16:30 Dextrose (D50w Syringe) 50 ml Q15M PRN IV DECREASED GLUCOSE; Start 04/11/17 at 16:30 Glucagon (Glucagen) 1 mg Q15M PRN IM DECREASED GLUCOSE; Start 04/11/17 at 16:30 Glucose (Glutose) 15 gm Q15M PRN BUCCAL DECREASED GLUCOSE; Start 04/11/17 at 16 :30 Metoclopramide HCl (Reglan) 10 mg Q6 IV Last administered on 05/24/17 12:31; Admin Dose 10 MG; Start 04/12/17 at 18:00 Insulin Aspart (Novolog Insulin Pen) NOVOLOG *MILD* ALGORI... Q6H SC Last administered on 05/24/17 11:25; Admin Dose 1 UNIT; Start 04/15/17 at 00:00 IV Flush (NS 10 ml) 10 ml PRN PRN IV FLUSH LINE; Start 04/15/17 at 13:00 Amiodarone HCl (Cordarone) 200 mg BID GTB Last administered on 05/24/17 12:31 ; Admin Dose 200 MG; Start 04/16/17 at 13:00 Heparin Sodium (Porcine) (Heparin (5000 Units/0.5 ml)) 5,000 unit BID SC Last administered on 04/30/17 21:03; Admin Dose 5,000 UNIT; Start 04/18/17 at 16:22; Status Future Hold Citalopram Hydrobromide (Celexa) 20 mg DAILY NGT Last administered on 11:28; Admin Dose 20 MG; Start 04/19/17 at 09:00 Hydralazine HCl (Apresoline) 20 mg Q6H PRN IV sbp ABOVE 160 Last administered on 05/22/17 19:59; Admin Dose 20 MG; Start 04/18/17 at 18:30 Chlorhexidine Gluconate (Peridex) 15 ml BID MT Last administered on 05/24/17 12:31; Admin Dose 15 ML; Start 04/22/17 at 21:00 Vitamin A/Vitamin D (Vitamin A & D Oint) 1 applic TID TOP Last administered on 05/24/17 12:32; Admin Dose 1 APPLIC; Start 04/22/17 at 21:00 Vitamin A/Vitamin D (Vitamin A & D Oint) 1 applic TID PRN TOP DRYNESS Last administered on 04/22/17 15:29; Admin Dose 1 APPLIC; Start 04/22/17 at 15:00 Acetaminophen/ Hydrocodone Bitart ([place] (5/325)) 1 tab Q6H GTB Last administered on 05/24/17 09:48; Admin Dose 1 TAB; Start 04/22/17 at 21:30 Spironolactone (Aldactone) 25 mg DAILY NGT Last administered on 05/24/17 11:29 ; Admin Dose 25 MG; Start 04/25/17 at 19:00; Status Future hold Diltiazem HCl (Cardizem Iv) 5 mg Q1H PRN IV HEART RATE GREATER THAN 120 Last administered on 04/29/17 06:17; Admin Dose 5 MG; Start 04/29/17 at 05:00 Metronidazole 500 mg 500 mg Q8 GTB Last administered on 05/24/17 05:33; Admin Dose 500 MG; Start 04/30/17 at 22:00 Sodium Chloride 1,000 ml @ 0 mls/hr Q0M IV Last administered on 05/01/17 03: 00; Admin Dose 1,000 MLS/HR; Start 05/01/17 at 03:00 Sodium Chloride 1,000 ml @ 0 mls/hr Q0M IV Last administered on 05/01/17 04: 00; Admin Dose 1,000 MLS/HR; Start 05/01/17 at 03:30 Diltiazem HCl (Cardizem-D5W 125 Mg/125 ml Drip) 125 ml @ 5 mls/hr TITRATE IV Last administered on 05/02/17 19:11; Admin Dose 5 MLS/HR; Start 05/02/17 at 19: 00 Metoprolol Tartrate (Lopressor) 25 mg QID GTB Last administered on 05/24/17 12 :39; Admin Dose 25 MG; Start 05/07/17 at 09:00 Furosemide (Lasix) 40 mg Q12 IV Last administered on 05/24/17 11:27; Admin Dose 40 MG; Start 05/08/17 at 09:00 Vitamin B Complex/ Vitamin C (Berocca) 1 cap DAILY PO Last administered on 05/24 11:28; Admin Dose 1 CAP; Start 05/13/17 at 09:00 Nystatin (Nystatin Susp) 5 ml QID PO Last administered on 05/24/17 12:32; Admin Dose 5 ML; Start 05/12/17 at 17:00 Hydrocortisone (Solu-Cortef) 20 mg TID IV Last administered on 05/24/17 11:26 ; Admin Dose 20 MG; Start 05/17/17 at 09:30 Aspirin (Aspirin) 81 mg DAILY NGT Last administered on 05/24/17 11:29; Admin Dose 81 MG; Start 05/19/17 at 09:00 Lansoprazole (Prevacid) 30 mg BID@06,18 GTB Last administered on 05/24/17 05: 32; Admin Dose 30 MG; Start 05/20/17 at 18:00 Multivitamins (Multivitamin) 30 ml DAILY GTB Last administered on 05/24/17 12: 31; Admin Dose 30 ML; Start 05/24/17 at 09:00 Assessment/Plan Chief Complaint/Hosp Course Additional Assessment/Plan IMP: 1. VDRF 3. s/p Hypercapnic Respiratory Failure--likely due to critical illness myopathy/ neuropathy 4. s/p septic shock 5. Demand Ischemia 6. Cholecystitis 7. Encephalopathy toxic metabolic 8. Leukocytosis improved. 9. Hyponatremia and end-stage renal failure RECS: 1. Vent support, trial of SIMV. hold off further weaning for now. 2. BDs 3. TFs/Free H2O 4. Hemodialysis per nephrology Problems: DARWIN CRAWFORD MD, [facility] May 24, 2017 13:09
--- NOTE | 2017-05-24 16:17 | PN ---
DATE: 05/24/2017 SUBJECTIVE DATA: No acute changes overnight per report. The patient is awake, weak, looks comfortable. No fevers. LABORATORY DATA: WBC 9.3, hemoglobin 8.7 and hematocrit 26.1, platelets 149,000. Neutrophils 79.4. BUN 101, creatinine 1.83. ACCESS: Indwelling trach PEG. Right femoral Amrit PICC line. ANTIMICROBIAL: Flagyl. OBJECTIVE DATA: VITAL SIGNS: Temperature 98, pulse 75, respirations 18, blood pressure 115/59. Saturation 97 percent on ventilator. GENERAL: This is a fragile chronically ill-appearing elderly woman who awake, is in no distress. HEENT: Head atraumatic, normocephalic. Sclerae are anicteric. Buccal mucosa dry. NECK: Supple. Tracheostomy present. CHEST: The chest rises symmetrically. Breath sounds diminished at bases. HEART: S1, S2. ABDOMEN: Obese, soft. Bowel sound present. EXTREMITIES: With bilateral trace edema. SKIN: No jaundice. Positive anasarca. ASSESSMENT: 1. Status post-severe sepsis with shock. 2. Status post-pneumonia. 3. Urinary tract infection. Dictated By: Keshia Patton NP /marquita/dahiana /Document#: [id number]
--- NOTE | 2017-05-24 16:23 | PN ---
DATE: 05/24/2017 CONTINUATION: ASSESSMENT: 1. Acute on chronic kidney disease, hemodialysis dependent. 2. Chronic respiratory failure. 3. Left upper extremity deep venous thrombosis. 4. Dysphagia. 5. History of Clostridium difficile colitis. 6. Cholelithiasis, surgery on the case. PLAN: The patient remains stable. She is currently on Flagyl which we are going to discontinue. She is off other antibiotics. We will observe her. Recommend to change right femoral Amrit catheter. Dictated By: Keshia Patton NP /marquita/dahiana /Document#: [id number]
--- NOTE | 2017-05-24 23:10 | RADRPT ---
PROCEDURE: Ultrasound of the bilateral lower extremity venous system. CLINICAL INDICATION: Bilateral leg pain and swelling, deep venous thrombosis TECHNIQUE: Chiang scale with and without compression, color doppler, spectral doppler of the venous system of the bilateral lower extremities was performed. Venous augmentation maneuvers were utilized . COMPARISON: No prior studies are available for comparison. FINDINGS: RIGHT: Common femoral vein: Patent. Femoral vein: Patent. Popliteal vein: Patent. Calf veins: Patent. No soft tissue abnormalities are identified. LEFT: Common femoral vein: Patent. Femoral vein: Patent proximally. Mid and distal segments not visualized. Popliteal vein: Patent. Calf veins: Patent. Subcutaneous edema is present. IMPRESSION: Mid and distal segments of the left femoral vein not visualized, otherwise no evidence of deep venou s thrombosis in either lower extremity. RPTAT: AADD .Edy Augustin MD, MD Date Time Electronically viewed and signed by .Edy Augustin MD, on 05/24/2017 23:09 .B/
--- NOTE | 2017-05-24 23:34 | PN ---
Date/Time of Note Date/Time of Note DATE: 05/24/17 TIME: 23:33 Assessment/Plan Lines/Catheters IV Catheter Type (from [facility]): BHARTI BOB Latif in Place (from [facility]): Yes Assessment/Plan Chief Complaint/Hosp Course 1. Cholelithiasis: Tolerating tube feeds; no abdominal pain/discomfort/bloating ; +bowel function -No surgical intervention required at this time 2. Pneumonia: Recurrent +sputum cultures; appears comfortable, min sputum, no fevers, s/p abx -pulmonary toilet -wean as tolerated 3. Vent dependent respiratory failure: 2/2 aspiration PNA+ CHF;reintubated and extubated, coded 04/21 and 05/01; comfortable on vent; eager to wean her off vent, on SIMV -as above 4. KEYONNA: likely 2/2 septic shock; with + urine output; HD unable to be done yesterday-cath not patent; will need custodial HD, -judicious fluid management -avoid nephrotoxic agents 5. Uncontrolled Afib: s/p amiodarone drip, on oral amiodarone; episodes of Afib Now SR -medical optimization 6. Leukocytosis with lactic acidosis: 2/2 pneumonia +/- steroids vs.fungemia vs other (urine, repeat blood cultures negative); normalized today -per ID 7. Macrocytic anemia: chronic vs. dilutional vs. acute bleed vs. b12/folate deficiency; hh lower but no acute bleed noted -monitor -Transfuse as needed 8. Electrolyte imbalance: (hyponatremia, hypokalemia); improved -electrolyte optimization 9. CHF: BNP elevated -judicious fluid management -medical optimization 10. Adrenal Insufficiency -solucortef 11. Oral lesions: improving 12. Hypothyroidism; tsh elevated -on synthroid 13. Hypocalcemia with hypoalbuminemia -optimize nutrition 14. Bilateral upper and lower extremity edema: hx(+) Thrombus in upper arm; lower leg pain, doppler pending -elevate extremities -supportive 15. Hypoalbuminemia: 2/2 malnutrition +/- inflammation; decreased; tolerating tf ; -nutrition optimization -as above Patient seen and examined in collaboration with Dr. Justus Antonio. Thank you Problems: Subjective 24 Hr Interval Summary Somnolent today. Comfortable on vent. Tolerating tf. +bowel function. No fevers , chills, sz, cp, palpitations, n/v/d/dysuria. Exam/Review of Systems Vital Signs Vitals Vital Signs Date Time Temp Pulse Resp B/P Pulse Ox O2 Delivery O2 Flow Rate FiO2 05/24/17 20:15 75 05/24/17 20:00 98.2 15 125/72 100 05/24/17 17:10 35 05/22/17 20:00 Mechanical Ventilator Intake and Output 05/24/17 05/24/17 05/25/17 15:00 23:00 07:00 Intake Total 1450 ml 950 ml Output Total 3540 ml 500 ml Balance -2090 ml 450 ml Exam Free Text/Dictation Constitutional: somnolent again today Head: atraumatic, normocephalic Eyes: PERRL, nl lids, nl sclera ENMT: No mucosa pink and moist (pink and moist with healing perioral lesions) Neck: non-tender, supple, tracheostomy Respiratory: diminished, comfortable on vent, min sputum Cardiovascular: nl pulses, regular rate and rhythm, Gastrointestinal: non distended, GT tubes site no erythema, no drainage, non tenderness, bowel sounds x 4 quads, soft; tf ongoing Genitourinary - Female: nl external genitalia Musculoskeletal: nl extremities to inspection Extremities: normal pulses, bilateral upper/lower extremity edema 3+; Neurological: responsive Skin: nl turgor, No rash or lesions Lymph: nl lymph node Results Result Diagram: 05/24/17 0529 05/24/17 0529 ADDISON FREGOSO NP May 24, 2017 23:34
[2017-05-25] VITALS (32 sets, daily range): BP systolic 110–144; BP diastolic 50–73; PULSE 69–87; RESP 12–20
[2017-05-25] MEDS: METOCLOPRAMIDE 10 MG INJ IV SCH ×4 (00:30→17:35)
[2017-05-25] MEDS: LEVALBUTEROL (HFA) 15 GM INHALER INH SCH ×4 (01:02→19:24)
[2017-05-25] MEDS: HYDROCODONE/APAP (5/325) TAB GTB SCH ×4 (03:30→21:13)
[2017-05-25] MEDS: INSULIN ASPART [NOVOLOG] 3 ML PEN SC SCH ×4 (06:00→17:41)
[2017-05-25 06:08] LABS: ABNORMAL IP MESSAGE 1; BASOPHILS % 0.1 % (0.0-2.0); EOSINOPHILS % 0.2 % (0.0-7.0); HEMATOCRIT 25.6 % (37.0-47.0); HEMOGLOBIN 8.2 g/dl (12.0-16.0); LYMPHOCYTES # 0.6 10^3/ul (0.8-2.9); LYMPHOCYTES % 6.3 % (15.0-51.0); MEAN CORPUSCULAR HEMOGLOBIN 31.4 pg (29.0-33.0); MEAN CORPUSCULAR VOLUME 98.1 fl (82.0-101.0); MEAN PLATELET VOLUME 11.1 fl (7.4-10.4); MONOCYTE # 0.8 10^3/ul (0.3-0.9); MONOCYTES % 8.4 % (0.0-11.0); NEUTROPHIL # 8.1 10^3/ul (1.6-7.5); NEUTROPHILS % 81.2 % (39.0-77.0); PLATELET COUNT 173 10^3/UL (140-415); RED BLOOD COUNT 2.61 10^6/ul (4.20-5.40); RED CELL DISTRIBUTION WIDTH 22.7 % (11.5-14.5)
[2017-05-25 06:29] LABS: CALCIUM 8.2 mg/dl (8.4-10.2); CREATININE 1.62 mg/dl (0.44-1.00); MAGNESIUM 2.5 mg/dl (1.7-2.5); PHOSPHORUS 3.2 mg/dl (2.5-4.9); POTASSIUM 3.8 mmol/L (3.5-5.1)
[2017-05-25] MEDS: metroNIDAZOLE 500 MG TAB GTB SCH ×3 (06:45→21:13)
[2017-05-25] MEDS: LEVOTHYROXINE 100 MCG TAB GTB SCH (06:45)
[2017-05-25] MEDS: LANSOPRAZOLE 30 MG CAP GTB SCH ×2 (06:45→17:35)
[2017-05-25 06:52] LABS: POSITIVE DIFF @See below
--- NOTE | 2017-05-25 08:39 | CONS ---
Date/Time of Note Date/Time of Note DATE: 05/25/17 TIME: 08:37 Consultation Date/Type/Reason Admit Date/Time Apr 11, 2017 at 11:28 Initial Consult Date 05/01/17 Type of Consultation: Pulmonary Reason for Consultation Atrial Fibrillation Referring Provider: NINA MACIEL DO 24 HR Interval Summary Free Text/Dictation pt remains in NSR. no afib overnight no chest pain or pressure or palpitations. Subjective hx not possible: other (alert nonverbal on vent) Exam/Review of Systems Vital Signs Vitals Vital Signs Date Time Temp Pulse Resp B/P Pulse Ox O2 Delivery O2 Flow Rate FiO2 05/25/17 08:02 35 05/25/17 07:36 97.6 75 17 122/63 99 05/22/17 20:00 Mechanical Ventilator Intake and Output 05/24/17 05/24/17 05/25/17 15:00 23:00 07:00 Intake Total 1450 ml 950 ml Output Total 3540 ml 500 ml 600 ml Balance -2090 ml 450 ml -600 ml Exam Constitutional: alert Respiratory: clear to auscultation Extremities: edema (no edema), normal pulses Results Result Diagram: 05/25/17 0518 05/25/17 0518 Results 24 hrs Laboratory Tests Test 05/24/17 11:19 05/24/17 17:43 05/25/17 00:18 05/25/17 05:18 Bedside Glucose 165 158 117 White Blood Count 10.0 Red Blood Count 2.61 L Hemoglobin 8.2 L Hematocrit 25.6 L Mean Corpuscular Volume 98.1 Mean Corpuscular Hemoglobin 31.4 Mean Corpuscular Hemoglobin Concent 32.0 Red Cell Distribution Width 22.7 H Platelet Count 173 Mean Platelet Volume 11.1 H Neutrophils % 81.2 H Lymphocytes % 6.3 L Monocytes % 8.4 Eosinophils % 0.2 Basophils % 0.1 Nucleated Red Blood Cells % 0.0 Neutrophils # 8.1 H Lymphocytes # 0.6 L Monocytes # 0.8 Eosinophils # 0.0 Basophils # 0.0 Nucleated Red Blood Cells # 0.0 Sodium Level 133 L Potassium Level 3.8 Chloride Level 95 L Carbon Dioxide Level 32 H Anion Gap 10 Blood Urea Nitrogen 74 H Creatinine 1.62 H Glucose Level 120 Calcium Level 8.2 L Phosphorus Level 3.2 Magnesium Level 2.5 Test 05/25/17 06:44 Bedside Glucose 133 Medications Medications Current Medications Metoprolol Tartrate (Lopressor) 5 mg Q4H PRN IV HR>110 Hold SBP<110 Last administered on 04/20/17 17:36; Admin Dose 5 MG; Start 04/11/17 at 13:30 Miscellaneous Information 1 ea NOTE XX ; Start 04/11/17 at 16:30 Glucose (Glutose) 15 gm Q15M PRN PO DECREASED GLUCOSE Last administered on 05/07 03:27; Admin Dose 15 GM; Start 04/11/17 at 16:30 Glucose (Glutose) 22.5 gm Q15M PRN PO DECREASED GLUCOSE; Start 04/11/17 at 16: 30 Dextrose (D50w Syringe) 25 ml Q15M PRN IV DECREASED GLUCOSE Last administered on 04/12/17 23:56; Admin Dose 25 ML; Start 04/11/17 at 16:30 Dextrose (D50w Syringe) 50 ml Q15M PRN IV DECREASED GLUCOSE; Start 04/11/17 at 16:30 Glucagon (Glucagen) 1 mg Q15M PRN IM DECREASED GLUCOSE; Start 04/11/17 at 16:30 Glucose (Glutose) 15 gm Q15M PRN BUCCAL DECREASED GLUCOSE; Start 04/11/17 at 16 :30 Metoclopramide HCl (Reglan) 10 mg Q6 IV Last administered on 05/25/17 06:45; Admin Dose 10 MG; Start 04/12/17 at 18:00 Insulin Aspart (Novolog Insulin Pen) NOVOLOG *MILD* ALGORI... Q6H SC Last administered on 05/24/17 17:51; Admin Dose 1 UNIT; Start 04/15/17 at 00:00 IV Flush (NS 10 ml) 10 ml PRN PRN IV FLUSH LINE; Start 04/15/17 at 13:00 Amiodarone HCl (Cordarone) 200 mg BID GTB Last administered on 05/24/17 21:56 ; Admin Dose 200 MG; Start 04/16/17 at 13:00 Heparin Sodium (Porcine) (Heparin (5000 Units/0.5 ml)) 5,000 unit BID SC Last administered on 04/30/17 21:03; Admin Dose 5,000 UNIT; Start 04/18/17 at 16:22; Status Future Hold Citalopram Hydrobromide (Celexa) 20 mg DAILY NGT Last administered on 11:28; Admin Dose 20 MG; Start 04/19/17 at 09:00 Hydralazine HCl (Apresoline) 20 mg Q6H PRN IV sbp ABOVE 160 Last administered on 05/22/17 19:59; Admin Dose 20 MG; Start 04/18/17 at 18:30 Chlorhexidine Gluconate (Peridex) 15 ml BID MT Last administered on 05/24/17 21:54; Admin Dose 15 ML; Start 04/22/17 at 21:00 Vitamin A/Vitamin D (Vitamin A & D Oint) 1 applic TID TOP Last administered on 05/24/17 21:55; Admin Dose 1 APPLIC; Start 04/22/17 at 21:00 Vitamin A/Vitamin D (Vitamin A & D Oint) 1 applic TID PRN TOP DRYNESS Last administered on 04/22/17 15:29; Admin Dose 1 APPLIC; Start 04/22/17 at 15:00 Acetaminophen/ Hydrocodone Bitart ([place] (5/325)) 1 tab Q6H GTB Last administered on 05/24/17 21:56; Admin Dose 1 TAB; Start 04/22/17 at 21:30 Spironolactone (Aldactone) 25 mg DAILY NGT Last administered on 05/24/17 11:29 ; Admin Dose 25 MG; Start 04/25/17 at 19:00; Status Future hold Diltiazem HCl (Cardizem Iv) 5 mg Q1H PRN IV HEART RATE GREATER THAN 120 Last administered on 04/29/17 06:17; Admin Dose 5 MG; Start 04/29/17 at 05:00 Metronidazole 500 mg 500 mg Q8 GTB Last administered on 05/25/17 06:45; Admin Dose 500 MG; Start 04/30/17 at 22:00 Sodium Chloride 1,000 ml @ 0 mls/hr Q0M IV Last administered on 05/01/17 03: 00; Admin Dose 1,000 MLS/HR; Start 05/01/17 at 03:00 Sodium Chloride 1,000 ml @ 0 mls/hr Q0M IV Last administered on 05/01/17 04: 00; Admin Dose 1,000 MLS/HR; Start 05/01/17 at 03:30 Diltiazem HCl (Cardizem-D5W 125 Mg/125 ml Drip) 125 ml @ 5 mls/hr TITRATE IV Last administered on 05/02/17 19:11; Admin Dose 5 MLS/HR; Start 05/02/17 at 19: 00 Metoprolol Tartrate (Lopressor) 25 mg QID GTB Last administered on 05/24/17 21 :55; Admin Dose 25 MG; Start 05/07/17 at 09:00 Furosemide (Lasix) 40 mg Q12 IV Last administered on 05/24/17 21:54; Admin Dose 40 MG; Start 05/08/17 at 09:00 Vitamin B Complex/ Vitamin C (Berocca) 1 cap DAILY PO Last administered on 05/24 11:28; Admin Dose 1 CAP; Start 05/13/17 at 09:00 Nystatin (Nystatin Susp) 5 ml QID PO Last administered on 05/24/17 21:55; Admin Dose 5 ML; Start 05/12/17 at 17:00 Hydrocortisone (Solu-Cortef) 20 mg TID IV Last administered on 05/24/17 21:55 ; Admin Dose 20 MG; Start 05/17/17 at 09:30 Aspirin (Aspirin) 81 mg DAILY NGT Last administered on 05/24/17 11:29; Admin Dose 81 MG; Start 05/19/17 at 09:00 Lansoprazole (Prevacid) 30 mg BID@06,18 GTB Last administered on 05/25/17 06: 45; Admin Dose 30 MG; Start 05/20/17 at 18:00 Multivitamins (Multivitamin) 30 ml DAILY GTB Last administered on 05/24/17 12: 31; Admin Dose 30 ML; Start 05/24/17 at 09:00 LIZZETH HARRIS MD May 25, 2017 08:39
[2017-05-25] MEDS: AMIODARONE 200 MG TAB GTB SCH ×2 (10:05→21:13)
[2017-05-25] MEDS: HYDROCORTISONE 100 MG INJ IV SCH ×3 (10:05→21:12)
[2017-05-25] MEDS: METOPROLOL 25 MG TAB GTB SCH ×4 (10:05→21:13)
[2017-05-25] MEDS: SPIRONOLACTONE 25 MG TAB NGT SCH (10:05)
[2017-05-25] MEDS: FUROSEMIDE 40 MG INJ IV SCH ×2 (10:05→21:12)
[2017-05-25] MEDS: VITAMIN B COMPLEX/VIT C CAP PO SCH (10:05)
[2017-05-25] MEDS: CHLORHEXIDINE GLUCONATE 15 ML UD CUP MT SCH ×2 (10:06→21:12)
[2017-05-25] MEDS: CITALOPRAM 20 MG TAB NGT SCH (10:06)
[2017-05-25] MEDS: NYSTATIN SUSP 5 ML CUP PO SCH ×4 (10:06→21:12)
[2017-05-25] MEDS: VITAMIN A & D 5 GM OINT PACKET TOP SCH ×3 (10:06→21:14)
[2017-05-25] MEDS: MULTIVITAMINS 30 ML CUP GTB SCH (10:06)
[2017-05-25] MEDS: ASPIRIN 81 MG TAB NGT SCH (10:12)
[2017-05-25] MEDS: EPOETIN 10000 UNITS/1 ML INJ (ESRD) SC SCH (11:48)
--- NOTE | 2017-05-25 12:16 | PN ---
DATE: 05/25/2017 SUBJECTIVE DATA: The patient is currently on hemodialysis, tolerating well. No other events noted. No hemoptysis, hematemesis, hematochezia. OBJECTIVE DATA: VITAL SIGNS: Blood pressure is 122/63, respiration is 17, pulse 75, temperature 97.6. HEENT: Head is normocephalic. NECK: Supple. HEART: Regular rate. LUNGS: Showed diminished breath sounds at the base. ABDOMEN: Soft, nontender to palpation. No rebound or guarding. EXTREMITIES: Negative for clubbing, cyanosis. Positive edema. DERMATOLOGIC: Clean. No rashes. MUSCULOSKELETAL: No joint effusion. NEUROLOGIC: Unchanged exam. MEDICATIONS: Reviewed. LABORATORY AND DIAGNOSTIC DATA: White count 10.9, hemoglobin 8.2, hematocrit 25.6, platelet count 173. Sodium 133, potassium 3.8, chloride 95, BUN 74, creatinine 1.62. ASSESSMENT AND PLAN: 1. Ventilator dependent respiratory failure. Vent settings reviewed. ABGs reviewed. Continue to monitor. Follow up with Pulmonary. 2. History of thyroid cancer with tracheomalacia. The patient is status post trach, status post ENT evaluation. 3. Nonoliguric acute kidney injury on top of chronic kidney disease. The patient is currently dialysis dependent. Pending PermCath placement by Dr. Noriega for outpatient hemodialysis being arranged at [facility]. 4. Volume overload secondary to acute kidney injury. 5. Congestive heart failure. Continue ultrafiltration dialysis. 6. Sepsis, status post shock secondary to aspiration pneumonia. The patient is completing antibiotic course. 7. Adrenal insufficiency. Continue current steroid regimen. 8. Sepsis encephalopathy, etiology is toxic metabolic. Continue dialysis. 9. Hypothyroidism. Continue Synthroid. 10. Hyponatremia, improving. Continue dialysis. Free water flushes have been discontinued. 11. Anemia. Monitor hemoglobin and hematocrit levels. 12. Congestive heart failure. Continue medical management. 13. Left upper extremity deep vein thrombosis. The patient's anticoagulation is on hold secondary to gastrointestinal bleed. Continue to monitor. 14. Dysphagia. The patient's tube feeding will be changed to renal base [employer]. 15. Status post upper gastrointestinal bleed. 16. Gastrointestinal and deep venous thrombosis prophylaxis. Continue proton pump inhibitor and sequential leg squeezes. Dictated By: Abebe Valderrama DO /marquita/anne-marie Job#: /Document#: [id number]
--- NOTE | 2017-05-25 15:12 | CONS ---
Date/Time of Note Date/Time of Note DATE: 05/25/17 TIME: 15:11 Consult Date/Type/Reason Admit Date/Time Apr 11, 2017 at 11:28 Initial Consult Date 04/12/17 Type of Consultation: Pulmonary Ordering Provider: NINA MACIEL DO Subjective Patient back on hemodialysis. Objective Vital Signs Date Time Temp Pulse Resp B/P Pulse Ox O2 Delivery O2 Flow Rate FiO2 05/25/17 13:10 72 15 99 35 05/25/17 11:21 98.1 131/64 05/22/17 20:00 Mechanical Ventilator Intake and Output 05/24/17 05/24/17 05/25/17 15:00 23:00 07:00 Intake Total 1450 ml 950 ml Output Total 3540 ml 500 ml 600 ml Balance -2090 ml 450 ml -600 ml Exam PHYSICAL EXAMINATION GENERAL: Elderly lady on mechanical ventilation via tracheostomy VITAL SIGNS: see below. HEENT: Pupils equal, round, and reactive to light. Tracheostomy site clean and intact. CARDIAC: S1, S2, 1/6 systolic ejection murmur CHEST: Diminished air entry bilaterally. ABDOMEN: Mildly distended. Bowel sounds present no guarding or rebound EXTREMITIES: No cyanosis, clubbing edema +1 NEUROLOGIC: Generalized weakness Results/Medications Result Diagram: 05/25/17 0518 05/25/17 0518 Results 24 hrs Laboratory Tests Test 05/24/17 17:43 05/25/17 00:18 05/25/17 05:18 05/25/17 06:44 Bedside Glucose 158 117 133 White Blood Count 10.0 Red Blood Count 2.61 L Hemoglobin 8.2 L Hematocrit 25.6 L Mean Corpuscular Volume 98.1 Mean Corpuscular Hemoglobin 31.4 Mean Corpuscular Hemoglobin Concent 32.0 Red Cell Distribution Width 22.7 H Platelet Count 173 Mean Platelet Volume 11.1 H Neutrophils % 81.2 H Lymphocytes % 6.3 L Monocytes % 8.4 Eosinophils % 0.2 Basophils % 0.1 Nucleated Red Blood Cells % 0.0 Neutrophils # 8.1 H Lymphocytes # 0.6 L Monocytes # 0.8 Eosinophils # 0.0 Basophils # 0.0 Nucleated Red Blood Cells # 0.0 Sodium Level 133 L Potassium Level 3.8 Chloride Level 95 L Carbon Dioxide Level 32 H Anion Gap 10 Blood Urea Nitrogen 74 H Creatinine 1.62 H Glucose Level 120 Calcium Level 8.2 L Phosphorus Level 3.2 Magnesium Level 2.5 Test 05/25/17 11:47 Bedside Glucose 160 Medications Current Medications Metoprolol Tartrate (Lopressor) 5 mg Q4H PRN IV HR>110 Hold SBP<110 Last administered on 04/20/17 17:36; Admin Dose 5 MG; Start 04/11/17 at 13:30 Miscellaneous Information 1 ea NOTE XX ; Start 04/11/17 at 16:30 Glucose (Glutose) 15 gm Q15M PRN PO DECREASED GLUCOSE Last administered on 05/07 03:27; Admin Dose 15 GM; Start 04/11/17 at 16:30 Glucose (Glutose) 22.5 gm Q15M PRN PO DECREASED GLUCOSE; Start 04/11/17 at 16: 30 Dextrose (D50w Syringe) 25 ml Q15M PRN IV DECREASED GLUCOSE Last administered on 04/12/17 23:56; Admin Dose 25 ML; Start 04/11/17 at 16:30 Dextrose (D50w Syringe) 50 ml Q15M PRN IV DECREASED GLUCOSE; Start 04/11/17 at 16:30 Glucagon (Glucagen) 1 mg Q15M PRN IM DECREASED GLUCOSE; Start 04/11/17 at 16:30 Glucose (Glutose) 15 gm Q15M PRN BUCCAL DECREASED GLUCOSE; Start 04/11/17 at 16 :30 Metoclopramide HCl (Reglan) 10 mg Q6 IV Last administered on 05/25/17 11:47; Admin Dose 10 MG; Start 04/12/17 at 18:00 Insulin Aspart (Novolog Insulin Pen) NOVOLOG *MILD* ALGORI... Q6H SC Last administered on 05/25/17 12:01; Admin Dose 1 UNIT; Start 04/15/17 at 00:00 IV Flush (NS 10 ml) 10 ml PRN PRN IV FLUSH LINE; Start 04/15/17 at 13:00 Amiodarone HCl (Cordarone) 200 mg BID GTB Last administered on 05/25/17 10:05 ; Admin Dose 200 MG; Start 04/16/17 at 13:00 Heparin Sodium (Porcine) (Heparin (5000 Units/0.5 ml)) 5,000 unit BID SC Last administered on 04/30/17 21:03; Admin Dose 5,000 UNIT; Start 04/18/17 at 16:22; Status Future Hold Citalopram Hydrobromide (Celexa) 20 mg DAILY NGT Last administered on 10:06; Admin Dose 20 MG; Start 04/19/17 at 09:00 Hydralazine HCl (Apresoline) 20 mg Q6H PRN IV sbp ABOVE 160 Last administered on 05/22/17 19:59; Admin Dose 20 MG; Start 04/18/17 at 18:30 Chlorhexidine Gluconate (Peridex) 15 ml BID MT Last administered on 05/25/17 10:06; Admin Dose 15 ML; Start 04/22/17 at 21:00 Vitamin A/Vitamin D (Vitamin A & D Oint) 1 applic TID TOP Last administered on 05/25/17 14:01; Admin Dose 1 APPLIC; Start 04/22/17 at 21:00 Vitamin A/Vitamin D (Vitamin A & D Oint) 1 applic TID PRN TOP DRYNESS Last administered on 04/22/17 15:29; Admin Dose 1 APPLIC; Start 04/22/17 at 15:00 Acetaminophen/ Hydrocodone Bitart ([place] (5/325)) 1 tab Q6H GTB Last administered on 05/25/17 10:06; Admin Dose 1 TAB; Start 04/22/17 at 21:30 Spironolactone (Aldactone) 25 mg DAILY NGT Last administered on 05/25/17 10:05 ; Admin Dose 25 MG; Start 04/25/17 at 19:00; Status Future hold Diltiazem HCl (Cardizem Iv) 5 mg Q1H PRN IV HEART RATE GREATER THAN 120 Last administered on 04/29/17 06:17; Admin Dose 5 MG; Start 04/29/17 at 05:00 Metronidazole 500 mg 500 mg Q8 GTB Last administered on 05/25/17 14:01; Admin Dose 500 MG; Start 04/30/17 at 22:00 Sodium Chloride 1,000 ml @ 0 mls/hr Q0M IV Last administered on 05/01/17 03: 00; Admin Dose 1,000 MLS/HR; Start 05/01/17 at 03:00 Sodium Chloride 1,000 ml @ 0 mls/hr Q0M IV Last administered on 05/01/17 04: 00; Admin Dose 1,000 MLS/HR; Start 05/01/17 at 03:30 Diltiazem HCl (Cardizem-D5W 125 Mg/125 ml Drip) 125 ml @ 5 mls/hr TITRATE IV Last administered on 05/02/17 19:11; Admin Dose 5 MLS/HR; Start 05/02/17 at 19: 00 Metoprolol Tartrate (Lopressor) 25 mg QID GTB Last administered on 05/25/17 14 :01; Admin Dose 25 MG; Start 05/07/17 at 09:00 Furosemide (Lasix) 40 mg Q12 IV Last administered on 05/25/17 10:05; Admin Dose 40 MG; Start 05/08/17 at 09:00 Vitamin B Complex/ Vitamin C (Berocca) 1 cap DAILY PO Last administered on 05/25 10:05; Admin Dose 1 CAP; Start 05/13/17 at 09:00 Nystatin (Nystatin Susp) 5 ml QID PO Last administered on 05/25/17 14:01; Admin Dose 5 ML; Start 05/12/17 at 17:00 Hydrocortisone (Solu-Cortef) 20 mg TID IV Last administered on 05/25/17 13:59 ; Admin Dose 20 MG; Start 05/17/17 at 09:30 Aspirin (Aspirin) 81 mg DAILY NGT Last administered on 05/25/17 10:12; Admin Dose 81 MG; Start 05/19/17 at 09:00 Lansoprazole (Prevacid) 30 mg BID@06,18 GTB Last administered on 05/25/17 06: 45; Admin Dose 30 MG; Start 05/20/17 at 18:00 Multivitamins (Multivitamin) 30 ml DAILY GTB Last administered on 05/25/17 10: 06; Admin Dose 30 ML; Start 05/24/17 at 09:00 Assessment/Plan Chief Complaint/Hosp Course Additional Assessment/Plan IMP: 1. VDRF 3. s/p Hypercapnic Respiratory Failure--likely due to critical illness myopathy/ neuropathy 4. s/p septic shock 5. Demand Ischemia 6. Cholecystitis 7. Encephalopathy toxic metabolic 8. Leukocytosis improved. 9. Hyponatremia and end-stage renal failure RECS: 1. Vent support, trial of SIMV. hold off further weaning for now. 2. BDs 3. TFs/Free H2O 4. Hemodialysis per nephrology Problems: DARWIN CRAWFORD MD, [facility] May 25, 2017 15:12
--- NOTE | 2017-05-25 15:45 | PN ---
Date/Time of Note Date/Time of Note DATE: 05/25/17 TIME: 15:39 Assessment/Plan Lines/Catheters IV Catheter Type (from [facility]): Amrit Cath Latif in Place (from [facility]): Yes Assessment/Plan Chief Complaint/Hosp Course 1. Cholelithiasis: Tolerating tube feeds; no abdominal pain/discomfort/bloating ; +bowel function -No surgical intervention required at this time 2. Pneumonia: Recurrent +sputum cultures; appears comfortable, min sputum, no fevers, s/p abx -pulmonary toilet -wean as tolerated 3. Vent dependent respiratory failure: 2/2 aspiration PNA+ CHF;reintubated and extubated, coded 04/21 and 05/01; comfortable on vent; eager to wean her off vent, on SIMV -as above 4. KEYONNA: likely 2/2 septic shock; with + urine output; will need [facility] HD, HD done today but pending new cath -judicious fluid management -avoid nephrotoxic agents 5. Uncontrolled Afib: s/p amiodarone drip, on oral amiodarone; episodes of Afib Now SR -medical optimization 6. Leukocytosis with lactic acidosis: 2/2 pneumonia +/- steroids vs.fungemia vs other (urine, repeat blood cultures negative); normalized today -per ID 7. Macrocytic anemia: chronic vs. dilutional vs. acute bleed vs. b12/folate deficiency; hh stable -monitor -Transfuse as needed 8. Electrolyte imbalance: (hyponatremia, hypokalemia); improved -electrolyte optimization 9. CHF: BNP elevated -judicious fluid management -medical optimization 10. Adrenal Insufficiency -solucortef 11. Oral lesions: improving 12. Hypothyroidism; tsh elevated -on synthroid 13. Hypocalcemia with hypoalbuminemia -optimize nutrition 14. Bilateral upper and lower extremity edema: hx(+) Thrombus in upper arm; lower leg pain, doppler (-) -elevate extremities -supportive 15. Hypoalbuminemia: 2/2 malnutrition +/- inflammation; decreased; tolerating tf ; -nutrition optimization -as above Patient seen and examined in collaboration with Dr. Justus Antonio. Thank you Problems: Subjective 24 Hr Interval Summary HD today. pending permacath placement. No c/o pain. tolerating tf with +bowel function. Comfortable on vent. No fevers, chills, cp, palpitations, sob, cough, n/v/d/dysuria. Exam/Review of Systems Vital Signs Vitals Vital Signs Date Time Temp Pulse Resp B/P Pulse Ox O2 Delivery O2 Flow Rate FiO2 05/25/17 15:31 97.8 75 16 113/59 100 05/25/17 13:10 35 05/22/17 20:00 Mechanical Ventilator Intake and Output 05/24/17 05/24/17 05/25/17 15:00 23:00 07:00 Intake Total 1450 ml 950 ml Output Total 3540 ml 500 ml 600 ml Balance -2090 ml 450 ml -600 ml Exam Free Text/Dictation Constitutional: awake alert pleasant Head: atraumatic, normocephalic Eyes: PERRL, nl lids, nl sclera ENMT: No mucosa pink and moist (pink and moist with healing perioral lesions) Neck: non-tender, supple, tracheostomy Respiratory: diminished, comfortable on vent, min sputum Cardiovascular: nl pulses, regular rate and rhythm, Gastrointestinal: non distended, GT tubes site no erythema, no drainage, non tenderness, bowel sounds x 4 quads, soft; tf ongoing Genitourinary - Female: nl external genitalia Musculoskeletal: nl extremities to inspection Extremities: normal pulses, bilateral upper/lower extremity edema 2; improved extremity edema Neurological: responsive Skin: nl turgor, No rash or lesions Lymph: nl lymph node Results Result Diagram: 05/25/1718 05/25/17517 ADDISON FREGOSO NP May 25, 2017 15:44
--- NOTE | 2017-05-25 23:19 | CONS ---
Date/Time of Note Date/Time of Note DATE: 05/25/17 TIME: 23:11 LATE ENTRY:PATIENT SEEN TODAY AT 12:10PM Assessment/Plan Assessment/Plan Problems: (1) Hypothyroidism Status: Chronic Comment: LAST TSH (ON 05/17) ELEVATED AND LT4 DOSE INCREASED UP TO 100 MCG. ON CURRENT DOSE FORA LITTLE OVER A WEEK. WILL CHECK TFT TO SEE IF THERE IS SOME TRANSIENT IMPROVEMENT IN THYROID LEVELS. Qualifiers: Hypothyroidism type: acquired Qualified Code: E03.9 - Acquired hypothyroidism Consultation Date/Type/Reason Admit Date/Time Apr 11, 2017 at 11:28 Initial Consult Date 05/01/17 Type of Consultation: ENDOCRINE Reason for Consultation THYROID DISORDER Referring Provider: NINA MACIEL DO 24 HR Interval Summary Free Text/Dictation S/P HEMODDIALYSIS Subjective hx not possible: pt non-verbal Exam/Review of Systems Vital Signs Vitals Vital Signs Date Time Temp Pulse Resp B/P Pulse Ox O2 Delivery O2 Flow Rate FiO2 05/25/17 20:25 70 05/25/17 20:00 98.2 15 126/62 100 05/25/17 20:00 35 05/22/17 20:00 Mechanical Ventilator Intake and Output 05/24/17 05/24/17 05/25/17 15:00 23:00 07:00 Intake Total 1450 ml 950 ml Output Total 3540 ml 500 ml 600 ml Balance -2090 ml 450 ml -600 ml Exam INTUBATED VIA TRACHEOSTOMY Respiratory: clear to auscultation Cardiovascular: regular rate and rhythm Gastrointestinal: soft Musculoskeletal: nl extremities to inspection Results LABS REVIEWED Result Diagram: 05/25/17 0518 05/25/17 0518 Results 24 hrs Laboratory Tests Test 05/25/17 00:18 05/25/17 05:18 05/25/17 06:44 05/25/17 11:47 Bedside Glucose 117 133 160 White Blood Count 10.0 Red Blood Count 2.61 L Hemoglobin 8.2 L Hematocrit 25.6 L Mean Corpuscular Volume 98.1 Mean Corpuscular Hemoglobin 31.4 Mean Corpuscular Hemoglobin Concent 32.0 Red Cell Distribution Width 22.7 H Platelet Count 173 Mean Platelet Volume 11.1 H Neutrophils % 81.2 H Lymphocytes % 6.3 L Monocytes % 8.4 Eosinophils % 0.2 Basophils % 0.1 Nucleated Red Blood Cells % 0.0 Neutrophils # 8.1 H Lymphocytes # 0.6 L Monocytes # 0.8 Eosinophils # 0.0 Basophils # 0.0 Nucleated Red Blood Cells # 0.0 Sodium Level 133 L Potassium Level 3.8 Chloride Level 95 L Carbon Dioxide Level 32 H Anion Gap 10 Blood Urea Nitrogen 74 H Creatinine 1.62 H Glucose Level 120 Calcium Level 8.2 L Phosphorus Level 3.2 Magnesium Level 2.5 Test 05/25/17 17:34 Bedside Glucose 165 Medications Medications Current Medications Metoprolol Tartrate (Lopressor) 5 mg Q4H PRN IV HR>110 Hold SBP<110 Last administered on 04/20/17 17:36; Admin Dose 5 MG; Start 04/11/17 at 13:30 Miscellaneous Information 1 ea NOTE XX ; Start 04/11/17 at 16:30 Glucose (Glutose) 15 gm Q15M PRN PO DECREASED GLUCOSE Last administered on 05/07 03:27; Admin Dose 15 GM; Start 04/11/17 at 16:30 Glucose (Glutose) 22.5 gm Q15M PRN PO DECREASED GLUCOSE; Start 04/11/17 at 16: 30 Dextrose (D50w Syringe) 25 ml Q15M PRN IV DECREASED GLUCOSE Last administered on 04/12/17 23:56; Admin Dose 25 ML; Start 04/11/17 at 16:30 Dextrose (D50w Syringe) 50 ml Q15M PRN IV DECREASED GLUCOSE; Start 04/11/17 at 16:30 Glucagon (Glucagen) 1 mg Q15M PRN IM DECREASED GLUCOSE; Start 04/11/17 at 16:30 Glucose (Glutose) 15 gm Q15M PRN BUCCAL DECREASED GLUCOSE; Start 04/11/17 at 16 :30 Metoclopramide HCl (Reglan) 10 mg Q6 IV Last administered on 05/25/17 17:35; Admin Dose 10 MG; Start 04/12/17 at 18:00 Insulin Aspart (Novolog Insulin Pen) NOVOLOG *MILD* ALGORI... Q6H SC Last administered on 05/25/17 17:41; Admin Dose 1 UNIT; Start 04/15/17 at 00:00 IV Flush (NS 10 ml) 10 ml PRN PRN IV FLUSH LINE; Start 04/15/17 at 13:00 Amiodarone HCl (Cordarone) 200 mg BID GTB Last administered on 05/25/17 21:13 ; Admin Dose 200 MG; Start 04/16/17 at 13:00 Heparin Sodium (Porcine) (Heparin (5000 Units/0.5 ml)) 5,000 unit BID SC Last administered on 04/30/17 21:03; Admin Dose 5,000 UNIT; Start 04/18/17 at 16:22; Status Future Hold Citalopram Hydrobromide (Celexa) 20 mg DAILY NGT Last administered on 10:06; Admin Dose 20 MG; Start 04/19/17 at 09:00 Hydralazine HCl (Apresoline) 20 mg Q6H PRN IV sbp ABOVE 160 Last administered on 05/22/17 19:59; Admin Dose 20 MG; Start 04/18/17 at 18:30 Chlorhexidine Gluconate (Peridex) 15 ml BID MT Last administered on 05/25/17 21:12; Admin Dose 15 ML; Start 04/22/17 at 21:00 Vitamin A/Vitamin D (Vitamin A & D Oint) 1 applic TID TOP Last administered on 05/25/17 21:14; Admin Dose 1 APPLIC; Start 04/22/17 at 21:00 Vitamin A/Vitamin D (Vitamin A & D Oint) 1 applic TID PRN TOP DRYNESS Last administered on 04/22/17 15:29; Admin Dose 1 APPLIC; Start 04/22/17 at 15:00 Acetaminophen/ Hydrocodone Bitart ([place] (5/325)) 1 tab Q6H GTB Last administered on 05/25/17 21:13; Admin Dose 1 TAB; Start 04/22/17 at 21:30 Spironolactone (Aldactone) 25 mg DAILY NGT Last administered on 05/25/17 10:05 ; Admin Dose 25 MG; Start 04/25/17 at 19:00; Status Future hold Diltiazem HCl (Cardizem Iv) 5 mg Q1H PRN IV HEART RATE GREATER THAN 120 Last administered on 04/29/17 06:17; Admin Dose 5 MG; Start 04/29/17 at 05:00 Metronidazole 500 mg 500 mg Q8 GTB Last administered on 05/25/17 21:13; Admin Dose 500 MG; Start 04/30/17 at 22:00 Sodium Chloride 1,000 ml @ 0 mls/hr Q0M IV Last administered on 05/01/17 03: 00; Admin Dose 1,000 MLS/HR; Start 05/01/17 at 03:00 Sodium Chloride 1,000 ml @ 0 mls/hr Q0M IV Last administered on 05/01/17 04: 00; Admin Dose 1,000 MLS/HR; Start 05/01/17 at 03:30 Diltiazem HCl (Cardizem-D5W 125 Mg/125 ml Drip) 125 ml @ 5 mls/hr TITRATE IV Last administered on 05/02/17 19:11; Admin Dose 5 MLS/HR; Start 05/02/17 at 19: 00 Metoprolol Tartrate (Lopressor) 25 mg QID GTB Last administered on 05/25/17 21 :13; Admin Dose 25 MG; Start 05/07/17 at 09:00 Furosemide (Lasix) 40 mg Q12 IV Last administered on 05/25/17 21:12; Admin Dose 40 MG; Start 05/08/17 at 09:00 Vitamin B Complex/ Vitamin C (Berocca) 1 cap DAILY PO Last administered on 05/25 10:05; Admin Dose 1 CAP; Start 05/13/17 at 09:00 Nystatin (Nystatin Susp) 5 ml QID PO Last administered on 05/25/17 21:12; Admin Dose 5 ML; Start 05/12/17 at 17:00 Hydrocortisone (Solu-Cortef) 20 mg TID IV Last administered on 05/25/17 21:12 ; Admin Dose 20 MG; Start 05/17/17 at 09:30 Aspirin (Aspirin) 81 mg DAILY NGT Last administered on 05/25/17 10:12; Admin Dose 81 MG; Start 05/19/17 at 09:00 Lansoprazole (Prevacid) 30 mg BID@,18 GTB Last administered on 05/25/17 17: 35; Admin Dose 30 MG; Start 05/20/17 at 18:00 Multivitamins (Multivitamin) 30 ml DAILY GTB Last administered on 05/25/17 10: 06; Admin Dose 30 ML; Start 05/24/17 at 09:00 CHRISTI HART MD May 25, 2017 23:19
[2017-05-26] VITALS (31 sets, daily range): BP systolic 101–140; BP diastolic 50–75; PULSE 75–88; RESP 13–21
[2017-05-26] MEDS: METOCLOPRAMIDE 10 MG INJ IV SCH ×4 (00:11→17:50)
[2017-05-26] MEDS: INSULIN ASPART [NOVOLOG] 3 ML PEN SC SCH ×4 (00:12→17:50)
[2017-05-26] MEDS: LEVALBUTEROL (HFA) 15 GM INHALER INH SCH ×4 (01:17→20:23)
[2017-05-26] MEDS: HYDROCODONE/APAP (5/325) TAB GTB SCH ×4 (03:30→21:01)
[2017-05-26] MEDS: metroNIDAZOLE 500 MG TAB GTB SCH (06:45)
[2017-05-26] MEDS: LEVOTHYROXINE 100 MCG TAB GTB SCH (06:45)
[2017-05-26] MEDS: LANSOPRAZOLE 30 MG CAP GTB SCH ×2 (06:45→17:49)
[2017-05-26 08:21] LABS: ABNORMAL IP MESSAGE 1; BASOPHILS % 0.1 % (0.0-2.0); EOSINOPHILS # 0.1 10^3/ul (0.0-0.5); HEMATOCRIT 22.5 % (37.0-47.0); LYMPHOCYTES # 0.9 10^3/ul (0.8-2.9); MEAN CORPUSCULAR HEMOGLOBIN 31.5 pg (29.0-33.0); MEAN CORPUSCULAR HGB CONC 31.1 g/dl (32.0-37.0); MEAN CORPUSCULAR VOLUME 101.4 fl (82.0-101.0); MONOCYTE # 1.3 10^3/ul (0.3-0.9); MONOCYTES % 12.7 % (0.0-11.0); NEUTROPHIL # 7.7 10^3/ul (1.6-7.5); NEUTROPHILS % 74.4 % (39.0-77.0); PLATELET COUNT 173 10^3/UL (140-415); RED BLOOD COUNT 2.22 10^6/ul (4.20-5.40); RED CELL DISTRIBUTION WIDTH 23.3 % (11.5-14.5); WHITE BLOOD COUNT 10.4 10^3/ul (4.8-10.8)
--- NOTE | 2017-05-26 08:28 | PN ---
DATE: 05/26/2017 SUBJECTIVE DATA: The patient is scheduled for hemodialysis today. No other events noted. OBJECTIVE DATA: VITAL SIGNS: Blood pressure is 114/55, respirations 19, pulse 82, temperature 98.0 HEENT: Head is normocephalic. NECK: Supple. HEART: Regular rate. LUNGS: Diminished breath sounds at the base. ABDOMEN: Soft, nontender to palpation. No rebound or guarding. EXTREMITIES: Negative for clubbing, cyanosis. Positive edema. DERMATOLOGIC: No rashes. MUSCULOSKELETAL: No joint effusion. NEUROLOGIC: Unchanged exam. MEDICATIONS: Reviewed. LABORATORY AND DIAGNOSTIC DATA: Reviewed. ASSESSMENT AND PLAN: 1. Ventilator-dependent respiratory failure. Vent settings reviewed. ABGs reviewed. Continue to monitor. Follow up with Pulmonary. 2. History of thyroid cancer with tracheomalacia. The patient is status post trach. Has been evaluated by ENT. Continue to monitor. 3. Nonoliguric acute kidney injury on top of chronic kidney disease. The patient is currently dialysis dependent. The patient is pending PermCath placement by Dr. Gonzales and outpatient hemodialysis has been arranged by [facility] [place]. 4. Volume overload secondary to acute kidney injury and CHF. Continue ultrafiltration dialysis. 5. Sepsis, status post shock secondary to aspiration pneumonia. The patient is completing antibiotic course. 6. Adrenal insufficiency. Continue current steroid regimen. 7. Acute encephalopathy, etiology is toxic metabolic, uremic, improving. Continue dialysis. Continue supportive care. 8. Hypothyroidism. Continue Synthroid. 9. Hyponatremia, improving. Continue dialysis. 10. Anemia. Monitor H and H levels. 11. Congestive heart failure. Continue medical management. 12. Left upper extremity deep vein thrombosis. The patient's anticoagulation is on hold secondary to recent gastrointestinal bleed. 13. Dysphagia, status post tube feeding. 14. Status post GI bleed. 15. Gastrointestinal and deep venous thrombosis prophylaxis. Continue PPI and sequential leg squeezers. Dictated By: Abebe Valderrama DO /marquita/jalen /Document#: [id number]
[2017-05-26 08:36] LABS: POSITIVE DIFF @See below
[2017-05-26 08:45] LABS: CALCIUM 8.3 mg/dl (8.4-10.2); CREATININE 1.53 mg/dl (0.44-1.00); MAGNESIUM 2.6 mg/dl (1.7-2.5); POTASSIUM 3.9 mmol/L (3.5-5.1)
[2017-05-26] MEDS: CHLORHEXIDINE GLUCONATE 15 ML UD CUP MT SCH ×2 (08:52→20:58)
[2017-05-26] MEDS: VITAMIN A & D 5 GM OINT PACKET TOP SCH ×3 (08:52→20:58)
[2017-05-26] MEDS: MULTIVITAMINS 30 ML CUP GTB SCH (08:52)
[2017-05-26] MEDS: NYSTATIN SUSP 5 ML CUP PO SCH ×4 (08:52→20:58)
[2017-05-26] MEDS: VITAMIN B COMPLEX/VIT C CAP PO SCH (08:53)
[2017-05-26] MEDS: FUROSEMIDE 40 MG INJ IV SCH ×2 (08:53→20:57)
[2017-05-26] MEDS: HYDROCORTISONE 100 MG INJ IV SCH ×3 (08:53→20:57)
[2017-05-26] MEDS: AMIODARONE 200 MG TAB GTB SCH ×2 (08:53→20:56)
[2017-05-26] MEDS: CITALOPRAM 20 MG TAB NGT SCH (08:54)
[2017-05-26] MEDS: SPIRONOLACTONE 25 MG TAB NGT SCH (08:54)
[2017-05-26] MEDS: ASPIRIN 81 MG TAB NGT SCH (08:54)
[2017-05-26] MEDS: METOPROLOL 25 MG TAB GTB SCH ×4 (08:54→20:57)
--- NOTE | 2017-05-26 10:17 | PN ---
Date/Time of Note Date/Time of Note DATE: 05/26/17 TIME: 10:13 Assessment/Plan Lines/Catheters IV [facility] Amrit Catheter Latif in Place (from [facility]): Yes Assessment/Plan Chief Complaint/Hosp Course 1. Cholelithiasis: Tolerating tube feeds; no abdominal pain/discomfort/bloating ; +bowel function -No surgical intervention required at this time 2. Pneumonia: Recurrent +sputum cultures; appears comfortable, min sputum, no fevers, s/p abx -pulmonary toilet -wean as tolerated 3. Vent dependent respiratory failure: 2/2 aspiration PNA+ CHF;reintubated and extubated, coded 04/21 and 05/01; comfortable on vent; eager to wean her off vent, on SIMV -as above 4. KEYONNA: likely 2/2 septic shock; with + urine output; will need senior care HD, HD today but pending new cath -judicious fluid management -avoid nephrotoxic agents 5. Uncontrolled Afib: s/p amiodarone drip, on oral amiodarone; episodes of Afib Now SR -medical optimization 6. Leukocytosis with lactic acidosis: 2/2 pneumonia +/- steroids vs.fungemia vs other (urine, repeat blood cultures negative); normalized again today -per ID 7. Macrocytic anemia: chronic vs. dilutional vs. acute bleed vs. b12/folate deficiency; hh stable -monitor -Transfuse as needed 8. Electrolyte imbalance: (hyponatremia, hypokalemia); improved -electrolyte optimization 9. CHF: BNP elevated -judicious fluid management -medical optimization 10. Adrenal Insufficiency -solucortef 11. Oral lesions: improving 12. Hypothyroidism; tsh elevated -on synthroid 13. Hypocalcemia with hypoalbuminemia -optimize nutrition 14. Bilateral upper and lower extremity edema: hx(+) Thrombus in upper arm; lower leg pain, doppler (-) -elevate extremities -supportive 15. Hypoalbuminemia: 2/2 malnutrition +/- inflammation; decreased; tolerating tf ; -nutrition optimization -as above Patient seen and examined in collaboration with Dr. Justus Antonio. Thank you Problems: Subjective 24 Hr Interval Summary Feels well. HD ongoing. tolerating tf with +bowel function. Comfortable on vent. No fevers, chills, cp, palpitations, sob, n/v/d/dysuria. Exam/Review of Systems Vital Signs Vitals Vital Signs Date Time Temp Pulse Resp B/P Pulse Ox O2 Delivery O2 Flow Rate FiO2 05/26/17 09:25 72 20 100 35 05/26/17 07:36 98.0 114/55 05/22/17 20:00 Mechanical Ventilator Intake and Output 05/25/17 05/25/17 05/26/17 15:00 23:00 07:00 Intake Total 500 ml 900 ml 950 ml Output Total 3500 ml 600 ml Balance -3000 ml 900 ml 350 ml Exam Free Text/Dictation Constitutional: awake alert pleasant Head: atraumatic, normocephalic Eyes: PERRL, nl lids, nl sclera ENMT: No mucosa pink and moist (pink and moist with healing perioral lesions) Neck: non-tender, supple, tracheostomy Respiratory: diminished, comfortable on vent, min sputum Cardiovascular: nl pulses, regular rate and rhythm, Gastrointestinal: non distended, GT tubes site no erythema, no drainage, non tenderness, bowel sounds x 4 quads, soft; tf ongoing Genitourinary - Female: nl external genitalia Musculoskeletal: nl extremities to inspection Extremities: normal pulses, bilateral upper/lower extremity edema 2+; improved extremity edema Neurological: responsive Skin: nl turgor, No rash or lesions Lymph: nl lymph node Results Result Diagram: 05/26/17 0734 05/26/17 0733 ADDISON FREGOSO NP May 26, 2017 10:17
[2017-05-26 10:44] LABS: HEMATOCRIT 24.8 % (37.0-47.0); HEMOGLOBIN 7.5 g/dl (12.0-16.0)
--- NOTE | 2017-05-26 14:28 | CONS ---
Date/Time of Note Date/Time of Note DATE: 05/26/17 TIME: 14:25 Consult Date/Type/Reason Admit Date/Time Apr 11, 2017 at 11:28 Initial Consult Date 04/12/17 Type of Consultation: Pulmonary Ordering Provider: NINA MACIEL DO Subjective No significant changes. Patient remains awake alert comfortable this morning. Status post hemodialysis. Objective Vital Signs Date Time Temp Pulse Resp B/P Pulse Ox O2 Delivery O2 Flow Rate FiO2 05/26/17 12:15 80 05/26/17 12:00 98.5 20 128/75 100 05/26/17 09:25 35 05/22/17 20:00 Mechanical Ventilator Intake and Output 05/25/17 05/25/17 05/26/17 15:00 23:00 07:00 Intake Total 500 ml 900 ml 950 ml Output Total 3500 ml 600 ml Balance -3000 ml 900 ml 350 ml Exam PHYSICAL EXAMINATION GENERAL: Elderly lady on mechanical ventilation via tracheostomy VITAL SIGNS: see below. HEENT: Pupils equal, round, and reactive to light. Tracheostomy site clean and intact. CARDIAC: S1, S2, 1/6 systolic ejection murmur CHEST: Diminished air entry bilaterally. ABDOMEN: Mildly distended. Bowel sounds present no guarding or rebound EXTREMITIES: No cyanosis, clubbing edema +1 NEUROLOGIC: Generalized weakness Results/Medications Result Diagram: 05/26/17 0928 05/26/17 0733 Results 24 hrs Laboratory Tests Test 05/25/17 17:34 05/26/17 00:09 05/26/17 06:43 05/26/17 07:33 Bedside Glucose 165 154 156 Sodium Level 141 Potassium Level 3.9 Chloride Level 98 Carbon Dioxide Level 33 H Anion Gap 14 Blood Urea Nitrogen 71 H Creatinine 1.53 H Glucose Level 125 Calcium Level 8.3 L Phosphorus Level 3.0 Magnesium Level 2.6 H Thyroid Stimulating Hormone (TSH) 19.900 H Free Thyroxine > 6.99 H Test 05/26/17 07:34 05/26/17 09:28 05/26/17 12:36 White Blood Count 10.4 Red Blood Count 2.22 L Hemoglobin 7.0 L 7.5 L Hematocrit 22.5 L 24.8 L Mean Corpuscular Volume 101.4 H Mean Corpuscular Hemoglobin 31.5 Mean Corpuscular Hemoglobin Concent 31.1 L Red Cell Distribution Width 23.3 H Platelet Count 173 Mean Platelet Volume 11.0 H Neutrophils % 74.4 Lymphocytes % 9.0 L Monocytes % 12.7 H Eosinophils % 1.0 Basophils % 0.1 Nucleated Red Blood Cells % 0.0 Neutrophils # 7.7 H Lymphocytes # 0.9 Monocytes # 1.3 H Eosinophils # 0.1 Basophils # 0.0 Nucleated Red Blood Cells # 0.0 Bedside Glucose 170 Medications Current Medications Metoprolol Tartrate (Lopressor) 5 mg Q4H PRN IV HR>110 Hold SBP<110 Last administered on 04/20/17 17:36; Admin Dose 5 MG; Start 04/11/17 at 13:30 Miscellaneous Information 1 ea NOTE XX ; Start 04/11/17 at 16:30 Glucose (Glutose) 15 gm Q15M PRN PO DECREASED GLUCOSE Last administered on 05/07 03:27; Admin Dose 15 GM; Start 04/11/17 at 16:30 Glucose (Glutose) 22.5 gm Q15M PRN PO DECREASED GLUCOSE; Start 04/11/17 at 16: 30 Dextrose (D50w Syringe) 25 ml Q15M PRN IV DECREASED GLUCOSE Last administered on 04/12/17 23:56; Admin Dose 25 ML; Start 04/11/17 at 16:30 Dextrose (D50w Syringe) 50 ml Q15M PRN IV DECREASED GLUCOSE; Start 04/11/17 at 16:30 Glucagon (Glucagen) 1 mg Q15M PRN IM DECREASED GLUCOSE; Start 04/11/17 at 16:30 Glucose (Glutose) 15 gm Q15M PRN BUCCAL DECREASED GLUCOSE; Start 04/11/17 at 16 :30 Metoclopramide HCl (Reglan) 10 mg Q6 IV Last administered on 05/26/17 12:44; Admin Dose 10 MG; Start 04/12/17 at 18:00 Insulin Aspart (Novolog Insulin Pen) NOVOLOG *MILD* ALGORI... Q6H SC Last administered on 05/26/17 13:04; Admin Dose 1 UNIT; Start 04/15/17 at 00:00 IV Flush (NS 10 ml) 10 ml PRN PRN IV FLUSH LINE; Start 04/15/17 at 13:00 Amiodarone HCl (Cordarone) 200 mg BID GTB Last administered on 05/26/17 08:53 ; Admin Dose 200 MG; Start 04/16/17 at 13:00 Heparin Sodium (Porcine) (Heparin (5000 Units/0.5 ml)) 5,000 unit BID SC Last administered on 04/30/17 21:03; Admin Dose 5,000 UNIT; Start 04/18/17 at 16:22; Status Future Hold Citalopram Hydrobromide (Celexa) 20 mg DAILY NGT Last administered on 08:54; Admin Dose 20 MG; Start 04/19/17 at 09:00 Hydralazine HCl (Apresoline) 20 mg Q6H PRN IV sbp ABOVE 160 Last administered on 05/22/17 19:59; Admin Dose 20 MG; Start 04/18/17 at 18:30 Chlorhexidine Gluconate (Peridex) 15 ml BID MT Last administered on 05/26/17 08:52; Admin Dose 15 ML; Start 04/22/17 at 21:00 Vitamin A/Vitamin D (Vitamin A & D Oint) 1 applic TID TOP Last administered on 05/26/17 12:44; Admin Dose 1 APPLIC; Start 04/22/17 at 21:00 Vitamin A/Vitamin D (Vitamin A & D Oint) 1 applic TID PRN TOP DRYNESS Last administered on 04/22/17 15:29; Admin Dose 1 APPLIC; Start 04/22/17 at 15:00 Acetaminophen/ Hydrocodone Bitart ([place] (5/325)) 1 tab Q6H GTB Last administered on 05/26/17 08:54; Admin Dose 1 TAB; Start 04/22/17 at 21:30 Spironolactone (Aldactone) 25 mg DAILY NGT Last administered on 05/26/17 08:54 ; Admin Dose 25 MG; Start 04/25/17 at 19:00; Status Future hold Diltiazem HCl (Cardizem Iv) 5 mg Q1H PRN IV HEART RATE GREATER THAN 120 Last administered on 04/29/17 06:17; Admin Dose 5 MG; Start 04/29/17 at 05:00 Metronidazole 500 mg 500 mg Q8 GTB Last administered on 05/26/17 06:45; Admin Dose 500 MG; Start 04/30/17 at 22:00 Sodium Chloride 1,000 ml @ 0 mls/hr Q0M IV Last administered on 05/01/17 03: 00; Admin Dose 1,000 MLS/HR; Start 05/01/17 at 03:00 Sodium Chloride 1,000 ml @ 0 mls/hr Q0M IV Last administered on 05/01/17 04: 00; Admin Dose 1,000 MLS/HR; Start 05/01/17 at 03:30 Diltiazem HCl (Cardizem-D5W 125 Mg/125 ml Drip) 125 ml @ 5 mls/hr TITRATE IV Last administered on 05/02/17 19:11; Admin Dose 5 MLS/HR; Start 05/02/17 at 19: 00 Metoprolol Tartrate (Lopressor) 25 mg QID GTB Last administered on 05/26/17 12 :45; Admin Dose 25 MG; Start 05/07/17 at 09:00 Furosemide (Lasix) 40 mg Q12 IV Last administered on 05/26/17 08:53; Admin Dose 40 MG; Start 05/08/17 at 09:00 Vitamin B Complex/ Vitamin C (Berocca) 1 cap DAILY PO Last administered on 05/26 08:53; Admin Dose 1 CAP; Start 05/13/17 at 09:00 Nystatin (Nystatin Susp) 5 ml QID PO Last administered on 05/26/17 12:44; Admin Dose 5 ML; Start 05/12/17 at 17:00 Hydrocortisone (Solu-Cortef) 20 mg TID IV Last administered on 05/26/17 12:43 ; Admin Dose 20 MG; Start 05/17/17 at 09:30 Aspirin (Aspirin) 81 mg DAILY NGT Last administered on 05/26/17 08:54; Admin Dose 81 MG; Start 05/19/17 at 09:00 Lansoprazole (Prevacid) 30 mg BID@06,18 GTB Last administered on 05/26/17 06: 45; Admin Dose 30 MG; Start 05/20/17 at 18:00 Multivitamins (Multivitamin) 30 ml DAILY GTB Last administered on 05/26/17 08: 52; Admin Dose 30 ML; Start 05/24/17 at 09:00 Assessment/Plan Chief Complaint/Hosp Course Additional Assessment/Plan IMP: 1. VDRF 3. s/p Hypercapnic Respiratory Failure--likely due to critical illness myopathy/ neuropathy 4. s/p septic shock 5. Demand Ischemia 6. Cholecystitis 7. Encephalopathy toxic metabolic resolving 8. Leukocytosis improved. 9. Hyponatremia and end-stage renal failure 10. Anemia likely multifactorial RECS: 1. Vent support, trial of SIMV. hold off further weaning for now. 2. BDs 3. TFs/Free H2O 4. Hemodialysis per nephrology 5. Transfusion 2 units packed red blood cells Problems: DARWIN CRAWFORD MD, [facility] May 26, 2017 14:27
--- NOTE | 2017-05-26 16:17 | CONS ---
Date/Time of Note Date/Time of Note DATE: 05/26/17 TIME: 16:15 Consult Date/Type/Reason Admit Date/Time Apr 11, 2017 at 11:28 Initial Consult Date 04/12/17 Type of Consultation: Pulmonary Ordering Provider: NINA MACIEL DO Subjective CARDIOLOGY FOLLOW UP NOTE: D/W D/W staff and rhythm was reviewed. pt remains in NSR. no afib overnight no chest pain or pressure or palpitations. pt still s/p trach on vent on tele. s/p transfusion on 05/14/17 and getting transfused again 05/26/17 pt is sleepy mostly. s/o HD. Objective: General: s/p trach on vent HEENT: NC/AT. . oropharynx with multiple lesions. . NECK: NO JVD. no stridor. s/p trach on vent CV: RRR. systolic ejection murmur; no gallop or rubs. PULM: + mild rhonchi. no wheezes. GI: SOFT, NT, ND, no rebound or guarding s/p PEG Extremity: 1-2+ B/L LE edema. no clubbing. neuro: drowsy sleepy Psych: calm rectal: deferred Derm: multiple echymosis : S/P mims catheter in place. Objective Vital Signs Date Time Temp Pulse Resp B/P Pulse Ox O2 Delivery O2 Flow Rate FiO2 05/26/17 12:15 80 05/26/17 12:00 98.5 20 128/75 100 05/26/17 09:25 35 05/22/17 20:00 Mechanical Ventilator Intake and Output 05/25/17 05/25/17 05/26/17 15:00 23:00 07:00 Intake Total 500 ml 900 ml 950 ml Output Total 3500 ml 600 ml Balance -3000 ml 900 ml 350 ml Results/Medications Result Diagram: 05/26/17 0928 05/26/17 0733 Results 24 hrs Laboratory Tests Test 05/25/17 17:34 05/26/17 00:09 05/26/17 06:43 05/26/17 07:33 Bedside Glucose 165 154 156 Sodium Level 141 Potassium Level 3.9 Chloride Level 98 Carbon Dioxide Level 33 H Anion Gap 14 Blood Urea Nitrogen 71 H Creatinine 1.53 H Glucose Level 125 Calcium Level 8.3 L Phosphorus Level 3.0 Magnesium Level 2.6 H Thyroid Stimulating Hormone (TSH) 19.900 H Free Thyroxine > 6.99 H Test 05/26/17 07:34 05/26/17 09:28 05/26/17 12:36 White Blood Count 10.4 Red Blood Count 2.22 L Hemoglobin 7.0 L 7.5 L Hematocrit 22.5 L 24.8 L Mean Corpuscular Volume 101.4 H Mean Corpuscular Hemoglobin 31.5 Mean Corpuscular Hemoglobin Concent 31.1 L Red Cell Distribution Width 23.3 H Platelet Count 173 Mean Platelet Volume 11.0 H Neutrophils % 74.4 Lymphocytes % 9.0 L Monocytes % 12.7 H Eosinophils % 1.0 Basophils % 0.1 Nucleated Red Blood Cells % 0.0 Neutrophils # 7.7 H Lymphocytes # 0.9 Monocytes # 1.3 H Eosinophils # 0.1 Basophils # 0.0 Nucleated Red Blood Cells # 0.0 Bedside Glucose 170 Medications Current Medications Metoprolol Tartrate (Lopressor) 5 mg Q4H PRN IV HR>110 Hold SBP<110 Last administered on 04/20/17 17:36; Admin Dose 5 MG; Start 04/11/17 at 13:30 Miscellaneous Information 1 ea NOTE XX ; Start 04/11/17 at 16:30 Glucose (Glutose) 15 gm Q15M PRN PO DECREASED GLUCOSE Last administered on 05/07 03:27; Admin Dose 15 GM; Start 04/11/17 at 16:30 Glucose (Glutose) 22.5 gm Q15M PRN PO DECREASED GLUCOSE; Start 04/11/17 at 16: 30 Dextrose (D50w Syringe) 25 ml Q15M PRN IV DECREASED GLUCOSE Last administered on 04/12/17 23:56; Admin Dose 25 ML; Start 04/11/17 at 16:30 Dextrose (D50w Syringe) 50 ml Q15M PRN IV DECREASED GLUCOSE; Start 04/11/17 at 16:30 Glucagon (Glucagen) 1 mg Q15M PRN IM DECREASED GLUCOSE; Start 04/11/17 at 16:30 Glucose (Glutose) 15 gm Q15M PRN BUCCAL DECREASED GLUCOSE; Start 04/11/17 at 16 :30 Metoclopramide HCl (Reglan) 10 mg Q6 IV Last administered on 05/26/17 12:44; Admin Dose 10 MG; Start 04/12/17 at 18:00 Insulin Aspart (Novolog Insulin Pen) NOVOLOG *MILD* ALGORI... Q6H SC Last administered on 05/26/17 13:04; Admin Dose 1 UNIT; Start 04/15/17 at 00:00 IV Flush (NS 10 ml) 10 ml PRN PRN IV FLUSH LINE; Start 04/15/17 at 13:00 Amiodarone HCl (Cordarone) 200 mg BID GTB Last administered on 05/26/17 08:53 ; Admin Dose 200 MG; Start 04/16/17 at 13:00 Heparin Sodium (Porcine) (Heparin (5000 Units/0.5 ml)) 5,000 unit BID SC Last administered on 04/30/17 21:03; Admin Dose 5,000 UNIT; Start 04/18/17 at 16:22; Status Future Hold Citalopram Hydrobromide (Celexa) 20 mg DAILY NGT Last administered on 08:54; Admin Dose 20 MG; Start 04/19/17 at 09:00 Hydralazine HCl (Apresoline) 20 mg Q6H PRN IV sbp ABOVE 160 Last administered on 05/22/17 19:59; Admin Dose 20 MG; Start 04/18/17 at 18:30 Chlorhexidine Gluconate (Peridex) 15 ml BID MT Last administered on 05/26/17 08:52; Admin Dose 15 ML; Start 04/22/17 at 21:00 Vitamin A/Vitamin D (Vitamin A & D Oint) 1 applic TID TOP Last administered on 05/26/17 12:44; Admin Dose 1 APPLIC; Start 04/22/17 at 21:00 Vitamin A/Vitamin D (Vitamin A & D Oint) 1 applic TID PRN TOP DRYNESS Last administered on 04/22/17 15:29; Admin Dose 1 APPLIC; Start 04/22/17 at 15:00 Acetaminophen/ Hydrocodone Bitart ([place] (5/325)) 1 tab Q6H GTB Last administered on 05/26/17 08:54; Admin Dose 1 TAB; Start 04/22/17 at 21:30 Spironolactone (Aldactone) 25 mg DAILY NGT Last administered on 05/26/17 08:54 ; Admin Dose 25 MG; Start 04/25/17 at 19:00; Status Future hold Diltiazem HCl 5 mg 5 mg Q1H PRN IV HEART RATE GREATER THAN 120 Last administered on 04/29/17 06:17; Admin Dose 5 MG; Start 04/29/17 at 05:00 Sodium Chloride 1,000 ml @ 0 mls/hr Q0M IV Last administered on 05/01/17 03: 00; Admin Dose 1,000 MLS/HR; Start 05/01/17 at 03:00 Sodium Chloride 1,000 ml @ 0 mls/hr Q0M IV Last administered on 05/01/17 04: 00; Admin Dose 1,000 MLS/HR; Start 05/01/17 at 03:30 Diltiazem HCl (Cardizem-D5W 125 Mg/125 ml Drip) 125 ml @ 5 mls/hr TITRATE IV Last administered on 05/02/17 19:11; Admin Dose 5 MLS/HR; Start 05/02/17 at 19: 00 Metoprolol Tartrate (Lopressor) 25 mg QID GTB Last administered on 05/26/17 12 :45; Admin Dose 25 MG; Start 05/07/17 at 09:00 Furosemide (Lasix) 40 mg Q12 IV Last administered on 05/26/17 08:53; Admin Dose 40 MG; Start 05/08/17 at 09:00 Vitamin B Complex/ Vitamin C (Berocca) 1 cap DAILY PO Last administered on 05/26 08:53; Admin Dose 1 CAP; Start 05/13/17 at 09:00 Nystatin (Nystatin Susp) 5 ml QID PO Last administered on 05/26/17 12:44; Admin Dose 5 ML; Start 05/12/17 at 17:00 Hydrocortisone (Solu-Cortef) 20 mg TID IV Last administered on 05/26/17 12:43 ; Admin Dose 20 MG; Start 05/17/17 at 09:30 Aspirin (Aspirin) 81 mg DAILY NGT Last administered on 05/26/17 08:54; Admin Dose 81 MG; Start 05/19/17 at 09:00 Lansoprazole (Prevacid) 30 mg BID@,18 GTB Last administered on 05/26/17 06: 45; Admin Dose 30 MG; Start 05/20/17 at 18:00 Multivitamins (Multivitamin) 30 ml DAILY GTB Last administered on 05/26/17t 08: 52; Admin Dose 30 ML; Start 05/24/17 at 09:00 Assessment/Plan Chief Complaint/Hosp Course 1. acute on chronic hypoxemic respiratory failure: 2. S/P NSTEMI: due to demand ischemia. 3. CHF/ fluid overload: due to diastolic heart failure 4. moderate 5. Arrhythmia and P afib, frequent PVC: currently in NSR. 6. ANEMIA: s/p multiple transfusion 7. s/p pneumonia, . 8. s/p sepsis and shock: BP is stable now. 9. Anasarca 10. s/p cardiopulm arrest due to resp failure 11. renal failure 12. coagulopathy Rec: cont resp care as per PULM Team. correct lytes prn. CONT betablocker as tolerated. . cont thyroid supplement . cont tele monitoring HD/ ultrafiltration will be deferred to renal. transfuse prn low dose ASA 81 mg only due to recurrent anemia. THANK YOU. Problems: FRANCISCO BLACKWOOD MD May 26, 2017 16:17
--- NOTE | 2017-05-26 18:09 | CONS ---
Date/Time of Note Date/Time of Note DATE: 05/26/17 TIME: 18:05 Assessment/Plan Assessment/Plan Problems: (1) Steroid dependence Status: Chronic Comment: Pt. has been on hydrocortisone at current 20 mg IV q8 for some time. Has been stable. Will reduce dose to 15 mg IV q8 and monitor. (2) Hypothyroidism Status: Chronic Comment: FT4 markedly elevated today w/ ongoing high TSH. Doubt this result. Will check FT4I tomorrow. Qualifiers: Hypothyroidism type: acquired Qualified Code: E03.9 - Acquired hypothyroidism Consultation Date/Type/Reason Admit Date/Time Apr 11, 2017 at 11:28 Initial Consult Date 04/14/17 Type of Consultation: Endocrinology Reason for Consultation Steroid dependence Referring Provider: NINA MACIEL DO 24 HR Interval Summary Subjective hx not possible: pt non-verbal Exam/Review of Systems Vital Signs Vitals VS - Last 72 Hours, by Label Date Time Temp Pulse Resp B/P Pulse Ox O2 Delivery O2 Flow Rate FiO2 05/26/17 16:12 98.2 76 21 109/55 100 05/26/17 16:06 80 05/26/17 12:15 80 05/26/17 12:00 98.5 78 20 128/75 100 05/26/17 10:10 88 20 05/26/17 10:10 88 05/26/17 09:40 87 05/26/17 09:25 72 20 100 35 05/26/17 09:10 86 05/26/17 08:40 85 05/26/17 08:30 35 05/26/17 08:11 81 05/26/17 08:10 86 05/26/17 07:40 85 05/26/17 07:36 98.0 82 19 114/55 100 05/26/17 07:16 70 16 100 35 05/26/17 07:10 81 05/26/17 07:10 81 20 05/26/17 05:10 75 13 100 35 05/26/17 04:04 75 05/26/17 04:00 98.2 78 20 140/68 97 05/26/17 03:06 76 13 100 35 05/26/17 01:17 73 15 100 35 05/26/17 00:08 75 05/26/17 00:00 98.8 73 15 106/55 97 05/25/17 23:09 75 20 100 35 05/25/17 21:05 76 13 100 35 05/25/17 20:25 70 05/25/17 20:00 98.2 77 15 126/62 100 05/25/17 20:00 35 05/25/17 19:24 73 15 100 35 05/25/17 17:10 70 13 100 35 05/25/17 16:12 74 05/25/17 15:35 76 14 100 35 05/25/17 15:31 97.8 75 16 113/59 100 05/25/17 13:10 72 15 99 35 05/25/17 12:02 73 05/25/17 11:21 98.1 75 16 131/64 100 05/25/17 11:10 73 13 100 35 05/25/17 10:04 79 117/63 05/25/17 09:05 84 16 100 35 05/25/17 08:12 74 05/25/17 08:02 35 05/25/17 07:36 97.6 75 17 122/63 99 05/25/17 07:30 85 05/25/17 07:30 87 18 05/25/17 07:10 72 13 100 35 05/25/17 07:10 72 13 100 35 05/25/17 07:00 86 05/25/17 06:30 86 05/25/17 06:00 87 05/25/17 05:30 83 05/25/17 05:15 77 12 100 35 05/25/17 05:00 85 05/25/17 04:30 80 18 05/25/17 04:30 80 05/25/17 04:07 75 05/25/17 04:05 98.3 74 15 126/73 98 05/25/17 03:04 77 12 100 35 05/25/17 01:02 74 12 100 35 05/25/17 00:06 69 05/25/17 00:00 97.5 72 20 144/69 100 05/24/17 22:30 72 14 100 35 05/24/17 21:30 72 15 100 35 05/24/17 20:16 73 12 100 35 05/24/17 20:15 75 05/24/17 20:00 35 05/24/17 20:00 98.2 72 15 125/72 100 05/24/17 17:10 73 16 100 35 05/24/17 16:18 76 05/24/17 15:43 97.8 68 18 121/71 97 05/24/17 15:10 75 19 100 35 05/24/17 13:20 63 18 100 35 05/24/17 12:12 75 05/24/17 11:47 98.0 75 18 115/59 97 05/24/17 11:10 73 18 100 35 05/24/17 10:45 79 17 05/24/17 10:45 82 05/24/17 10:15 80 05/24/17 09:45 79 05/24/17 09:15 76 05/24/17 09:10 69 16 100 35 05/24/17 08:45 73 05/24/17 08:15 72 05/24/17 08:12 72 05/24/17 08:00 35 05/24/17 07:45 69 05/24/17 07:45 79 16 05/24/17 07:36 97.5 70 18 114/65 99 05/24/17 07:25 72 14 99 35 05/24/17 07:25 72 14 99 35 05/24/17 05:13 70 17 100 35 05/24/17 04:29 98.2 68 68 113/59 100 05/24/17 04:20 72 05/24/17 03:40 69 17 99 35 05/24/17 02:15 71 15 100 35 05/24/17 00:58 97.7 65 19 119/68 100 05/24/17 00:34 70 05/23/17 23:36 69 13 99 35 05/23/17 21:47 70 15 98 35 05/23/17 20:25 35 05/23/17 20:23 69 05/23/17 20:21 97.5 70 15 123/58 99 05/23/17 20:11 68 15 98 35 05/23/17 19:15 14 05/23/17 19:00 67 05/23/17 18:45 67 05/23/17 18:15 67 Vital Signs Date Time Temp Pulse Resp B/P Pulse Ox O2 Delivery O2 Flow Rate FiO2 05/26/17 16:12 98.2 76 21 109/55 100 05/26/17 09:25 35 05/22/17 20:00 Mechanical Ventilator Intake and Output 05/25/17 05/25/17 05/26/17 15:00 23:00 07:00 Intake Total 500 ml 900 ml 950 ml Output Total 3500 ml 600 ml Balance -3000 ml 900 ml 350 ml Exam Constitutional: alert, frail, non-verbal Neck: other ((+) trach on vent) Respiratory: clear to auscultation, normal air movement Cardiovascular: edema (3+ diffuse anasarca), nl pulses, regular rate and rhythm , No murmurs/extra sounds, No rub Gastrointestinal: bowel sounds, nl liver, spleen, non-tender, soft, No mass, No rebound or guarding Musculoskeletal: nl extremities to inspection Extremities: edema (3+ diffuse anasarca), normal pulses, No clubbing, No cyanosis Neurological: COLD STRIP ROLLER II-XII intact Additional Comments Bedside Glucose - 72 Hours Test 05/23/17 23:12 05/24/17 05:50 05/24/17 11:19 05/24/17 17:43 Bedside Glucose 110mg/dL (70-220) 128mg/dL (70-220) 165mg/dL (70-220) 158mg/dL (70-220) Test 05/25/17 00:18 05/25/17 06:44 05/25/17 11:47 05/25/17 17:34 Bedside Glucose 117mg/dL (70-220) 133mg/dL (70-220) 160mg/dL (70-220) 165mg/dL (70-220) Test 05/26/17 00:09 05/26/17 06:43 05/26/17 12:36 05/26/17 17:31 Bedside Glucose 154mg/dL (70-220) 156mg/dL (70-220) 170mg/dL (70-220) 163mg/dL (70-220) Results Result Diagram: 05/26/17 0928 05/26/17 0733 Results 24 hrs Laboratory Tests Test 05/26/17 00:09 05/26/17 06:43 05/26/17 07:33 05/26/17 07:34 Bedside Glucose 154 156 Sodium Level 141 Potassium Level 3.9 Chloride Level 98 Carbon Dioxide Level 33 H Anion Gap 14 Blood Urea Nitrogen 71 H Creatinine 1.53 H Glucose Level 125 Calcium Level 8.3 L Phosphorus Level 3.0 Magnesium Level 2.6 H Thyroid Stimulating Hormone (TSH) 19.900 H Free Thyroxine > 6.99 H White Blood Count 10.4 Red Blood Count 2.22 L Hemoglobin 7.0 L Hematocrit 22.5 L Mean Corpuscular Volume 101.4 H Mean Corpuscular Hemoglobin 31.5 Mean Corpuscular Hemoglobin Concent 31.1 L Red Cell Distribution Width 23.3 H Platelet Count 173 Mean Platelet Volume 11.0 H Neutrophils % 74.4 Lymphocytes % 9.0 L Monocytes % 12.7 H Eosinophils % 1.0 Basophils % 0.1 Nucleated Red Blood Cells % 0.0 Neutrophils # 7.7 H Lymphocytes # 0.9 Monocytes # 1.3 H Eosinophils # 0.1 Basophils # 0.0 Nucleated Red Blood Cells # 0.0 Test 05/26/17 09:28 05/26/17 12:36 05/26/17 17:31 Hemoglobin 7.5 L Hematocrit 24.8 L Bedside Glucose 170 163 Medications Medications Current Medications Metoprolol Tartrate (Lopressor) 5 mg Q4H PRN IV HR>110 Hold SBP<110 Last administered on 04/20/17 17:36; Admin Dose 5 MG; Start 04/11/17 at 13:30 Miscellaneous Information 1 ea NOTE XX ; Start 04/11/17 at 16:30 Glucose (Glutose) 15 gm Q15M PRN PO DECREASED GLUCOSE Last administered on 05/07 03:27; Admin Dose 15 GM; Start 04/11/17 at 16:30 Glucose (Glutose) 22.5 gm Q15M PRN PO DECREASED GLUCOSE; Start 04/11/17 at 16: 30 Dextrose (D50w Syringe) 25 ml Q15M PRN IV DECREASED GLUCOSE Last administered on 04/12/17 23:56; Admin Dose 25 ML; Start 04/11/17 at 16:30 Dextrose (D50w Syringe) 50 ml Q15M PRN IV DECREASED GLUCOSE; Start 04/11/17 at 16:30 Glucagon (Glucagen) 1 mg Q15M PRN IM DECREASED GLUCOSE; Start 04/11/17 at 16:30 Glucose (Glutose) 15 gm Q15M PRN BUCCAL DECREASED GLUCOSE; Start 04/11/17 at 16 :30 Metoclopramide HCl (Reglan) 10 mg Q6 IV Last administered on 05/26/17 12:44; Admin Dose 10 MG; Start 04/12/17 at 18:00 Insulin Aspart (Novolog Insulin Pen) NOVOLOG *MILD* ALGORI... Q6H SC Last administered on 05/26/17 13:04; Admin Dose 1 UNIT; Start 04/15/17 at 00:00 IV Flush (NS 10 ml) 10 ml PRN PRN IV FLUSH LINE; Start 04/15/17 at 13:00 Amiodarone HCl (Cordarone) 200 mg BID GTB Last administered on 05/26/17 08:53 ; Admin Dose 200 MG; Start 04/16/17 at 13:00 Heparin Sodium (Porcine) (Heparin (5000 Units/0.5 ml)) 5,000 unit BID SC Last administered on 04/30/17 21:03; Admin Dose 5,000 UNIT; Start 04/18/17 at 16:22; Status Future Hold Citalopram Hydrobromide (Celexa) 20 mg DAILY NGT Last administered on 08:54; Admin Dose 20 MG; Start 04/19/17 at 09:00 Hydralazine HCl (Apresoline) 20 mg Q6H PRN IV sbp ABOVE 160 Last administered on 05/22/17 19:59; Admin Dose 20 MG; Start 04/18/17 at 18:30 Chlorhexidine Gluconate (Peridex) 15 ml BID MT Last administered on 05/26/17 08:52; Admin Dose 15 ML; Start 04/22/17 at 21:00 Vitamin A/Vitamin D (Vitamin A & D Oint) 1 applic TID TOP Last administered on 05/26/17 12:44; Admin Dose 1 APPLIC; Start 04/22/17 at 21:00 Vitamin A/Vitamin D (Vitamin A & D Oint) 1 applic TID PRN TOP DRYNESS Last administered on 04/22/17 15:29; Admin Dose 1 APPLIC; Start 04/22/17 at 15:00 Acetaminophen/ Hydrocodone Bitart ([place] (5/325)) 1 tab Q6H GTB Last administered on 05/26/17 16:17; Admin Dose 1 TAB; Start 04/22/17 at 21:30 Spironolactone (Aldactone) 25 mg DAILY NGT Last administered on 05/26/17 08:54 ; Admin Dose 25 MG; Start 04/25/17 at 19:00; Status Future hold Diltiazem HCl 5 mg 5 mg Q1H PRN IV HEART RATE GREATER THAN 120 Last administered on 04/29/17 06:17; Admin Dose 5 MG; Start 04/29/17 at 05:00 Sodium Chloride 1,000 ml @ 0 mls/hr Q0M IV Last administered on 05/01/17 03: 00; Admin Dose 1,000 MLS/HR; Start 05/01/17 at 03:00 Sodium Chloride 1,000 ml @ 0 mls/hr Q0M IV Last administered on 05/01/17 04: 00; Admin Dose 1,000 MLS/HR; Start 05/01/17 at 03:30 Diltiazem HCl (Cardizem-D5W 125 Mg/125 ml Drip) 125 ml @ 5 mls/hr TITRATE IV Last administered on 05/02/17 19:11; Admin Dose 5 MLS/HR; Start 05/02/17 at 19: 00 Metoprolol Tartrate (Lopressor) 25 mg QID GTB Last administered on 05/26/17 12 :45; Admin Dose 25 MG; Start 05/07/17 at 09:00 Furosemide (Lasix) 40 mg Q12 IV Last administered on 05/26/17 08:53; Admin Dose 40 MG; Start 05/08/17 at 09:00 Vitamin B Complex/ Vitamin C (Berocca) 1 cap DAILY PO Last administered on 05/26 08:53; Admin Dose 1 CAP; Start 05/13/17 at 09:00 Nystatin (Nystatin Susp) 5 ml QID PO Last administered on 05/26/17 12:44; Admin Dose 5 ML; Start 05/12/17 at 17:00 Hydrocortisone (Solu-Cortef) 20 mg TID IV Last administered on 05/26/17 12:43 ; Admin Dose 20 MG; Start 05/17/17 at 09:30 Aspirin (Aspirin) 81 mg DAILY NGT Last administered on 05/26/17 08:54; Admin Dose 81 MG; Start 05/19/17 at 09:00 Lansoprazole (Prevacid) 30 mg BID@06,18 GTB Last administered on 05/26/17 06: 45; Admin Dose 30 MG; Start 05/20/17 at 18:00 Multivitamins (Multivitamin) 30 ml DAILY GTB Last administered on 05/26/17t 08: 52; Admin Dose 30 ML; Start 05/24/17 at 09:00 JEAN CISNEROS MD May 26, 2017 18:09
[2017-05-27] VITALS (27 sets, daily range): BP systolic 116–178; BP diastolic 61–99; PULSE 75–90; RESP 14–28
[2017-05-27] MEDS: METOCLOPRAMIDE 10 MG INJ IV SCH ×5 (00:23→23:57)
[2017-05-27] MEDS: INSULIN ASPART [NOVOLOG] 3 ML PEN SC SCH ×5 (00:24→23:59)
[2017-05-27] MEDS: LEVALBUTEROL (HFA) 15 GM INHALER INH SCH ×4 (01:56→19:25)
--- NOTE | 2017-05-27 03:50 | PN ---
DATE: 05/26/2017 INFECTIOUS DISEASE PROGRESS NOTE SUBJECTIVE DATA: No acute changes. The patient is awake, lying comfortably in bed. No fevers, no distress. Indwelling trach, PEG, Latif, right femoral Amrit catheter, PICC line. LABORATORY AND DIAGNOSTIC DATA: WBC today 10.4, hemoglobin 7.5, hematocrit 24.8, and platelets 173, neutrophils 7.4. BUN 71, creatinine 1.53. OBJECTIVE DATA: GENERAL: Fragile elderly woman who is awake, in no distress. HEENT: Head atraumatic, normocephalic. Sclerae anicteric. Buccal mucosa dry. NECK: Supple. CHEST: Rise symmetrical. Breath sounds diminished at the bases. HEART: S1, S2. ABDOMEN: Soft. Bowel sounds present. EXTREMITIES: Without cyanosis, bilateral edema. ASSESSMENT: 1. Resolving sepsis, status post shock. 2. Status post pneumonia. 3. Acute on chronic respiratory failure. Status post tracheostomy. 4. History of Clostridium difficile colitis. 5. Gastroesophageal reflux disease. 6. Status post fungemia. 7. Chronic kidney disease requiring hemodialysis. 8. Acute on chronic anemia. PLAN: The patient remains stable, off antibiotics. Continue present care, blood products prn. Repeat cultures p.r.n. Dictated By: Doyle Patton NP /marquita/blanca /Document#: [id number] ALEKSANDRA
[2017-05-27] MEDS: HYDROCODONE/APAP (5/325) TAB GTB SCH ×4 (03:57→20:37)
[2017-05-27] MEDS: LANSOPRAZOLE 30 MG CAP GTB SCH ×2 (05:48→17:24)
[2017-05-27] MEDS: LEVOTHYROXINE 100 MCG TAB GTB SCH (06:01)
[2017-05-27] MEDS ORDERED: ALTEPLASE (CATHFLO) 2 MG INJ CATHETER ONE ×2 (07:30)
--- NOTE | 2017-05-27 09:00 | PN ---
DATE: 05/25/2017 SUBJECTIVE: No acute events overnight. The patient is awake, looks comfortable. No fevers. Denies pain, discomfort. Indwelling: Trach, bag Latif, right femoral Amrit catheter. PHYSICAL EXAMINATION: This is a fragile, chronically ill- appearing, elderly woman who is awake, in no distress. HEENT: Head atraumatic, normocephalic. Sclerae anicteric. Buccal mucosa dry. NECK: Supple. Tracheostomy present. CHEST: Chest rise symmetric. Breath sounds diminished at bases. HEART: S1, S2. ABDOMEN: Soft. Bowel sounds present. EXTREMITIES: Without cyanosis. SKIN: Positive for anasarca. ASSESSMENT: 1. Status post septic shock, urinary tract infection, pneumonia. 2. Cgjjf-[id number] respiratory failure. 3. Status post fungemia. 4. Ozkuq-du-cnymvqw kidney disease. 5. History of Clostridium difficile colitis. 6. Left upper extremity deep vein thrombosis. PLAN: The patient remains stable off antibiotics. She is being followed by multiple consultants. We will observe her and baker culture p.r.n. Dictated By: Doyle Patton NP /marquita/elba /Document#: [id number]
[2017-05-27] MEDS: MULTIVITAMINS 30 ML CUP GTB SCH (09:07)
[2017-05-27] MEDS: HYDROCORTISONE 100 MG INJ IV SCH ×3 (09:07→20:36)
[2017-05-27] MEDS: CHLORHEXIDINE GLUCONATE 15 ML UD CUP MT SCH ×2 (09:07→20:36)
[2017-05-27] MEDS: ASPIRIN 81 MG TAB NGT SCH (09:08)
[2017-05-27] MEDS: NYSTATIN SUSP 5 ML CUP PO SCH ×4 (09:08→20:36)
[2017-05-27] MEDS: FUROSEMIDE 40 MG INJ IV SCH ×2 (09:08→20:36)
[2017-05-27] MEDS: VITAMIN B COMPLEX/VIT C CAP PO SCH (09:08)
[2017-05-27] MEDS: SPIRONOLACTONE 25 MG TAB NGT SCH (09:08)
[2017-05-27] MEDS: CITALOPRAM 20 MG TAB NGT SCH (09:08)
[2017-05-27] MEDS: VITAMIN A & D 5 GM OINT PACKET TOP SCH ×3 (09:08→20:55)
[2017-05-27] MEDS: AMIODARONE 200 MG TAB GTB SCH ×2 (09:08→20:36)
[2017-05-27] MEDS: METOPROLOL 25 MG TAB GTB SCH ×4 (09:09→20:35)
--- NOTE | 2017-05-27 10:52 | PN ---
Date/Time of Note Date/Time of Note DATE: 05/27/17 TIME: 10:50 Assessment/Plan VTE Prophylaxis VTE Prophylaxis Intervention: other Lines/Catheters IV Catheter Type (from Nrsg): Amrit catheter Central line still needed: Yes Urinary Cath still in place: Yes Reason Cath still needed: urinary retention Assessment/Plan Assessment/Plan 1. Ventilator-dependent respiratory failure. Vent settings reviewed. ABGs reviewed. Continue to monitor. Follow up with Pulmonary. 2. History of thyroid cancer with tracheomalacia. The patient is status post trach. Has been evaluated by ENT. Continue to monitor. 3. Nonoliguric acute kidney injury on top of chronic kidney disease. The patient is currently dialysis dependent. The patient is pending PermCath placement by Dr. Gonzales and outpatient hemodialysis has been arranged by [facility] [place]. will continue HD today. will intensify diuresis. 4. Volume overload secondary to acute kidney injury and CHF. Continue ultrafiltration dialysis. 5. Sepsis, status post shock secondary to aspiration pneumonia. The patient is completing antibiotic course. 6. Adrenal insufficiency. Continue current steroid regimen. 7. Acute encephalopathy, etiology is toxic metabolic, uremic, improving. Continue dialysis. Continue supportive care. 8. Hypothyroidism. Continue Synthroid. 9. Hyponatremia, improving. Continue dialysis. 10. Anemia. Monitor H and H levels. 11. Congestive heart failure. Continue medical management. 12. Left upper extremity deep vein thrombosis. The patient's anticoagulation is on hold secondary to recent gastrointestinal bleed. 13. Dysphagia, status post tube feeding. 14. Status post GI bleed. 15. Gastrointestinal and deep venous thrombosis prophylaxis. Continue PPI and sequential leg squeezers. Subjective 24 Hr Interval Summary Free Text/Dictation SUBJECTIVE DATA: The patient is scheduled for hemodialysis today. No other events noted. no nausea, vomiting, new rash, hematuria, melena, tachypnea trach in place vent settings and cardiac strips were reviewed has a temp line in place for HD (clean and dry) d/w at the bedside extensively OBJECTIVE DATA: HEENT: Head is normocephalic. NECK: Supple. HEART: Regular rate. LUNGS: Diminished breath sounds at the base. ABDOMEN: Soft, nontender to palpation. No rebound or guarding. EXTREMITIES: Negative for clubbing, cyanosis. Positive edema. DERMATOLOGIC: No rashes. MUSCULOSKELETAL: No joint effusion. NEUROLOGIC: Unchanged exam. MEDICATIONS: Reviewed. LABORATORY AND DIAGNOSTIC DATA: Reviewed. Exam/Review of Systems Vital Signs Vitals Vital Signs Date Time Temp Pulse Resp B/P Pulse Ox O2 Delivery O2 Flow Rate FiO2 05/27/17 08:12 78 05/27/17 07:36 98.7 18 116/79 100 05/27/17 05:17 35 Intake and Output 05/26/17 05/26/17 05/27/17 15:00 23:00 07:00 Intake Total 500 ml 1160 ml 860 ml Output Total 3500 ml 200 ml 400 ml Balance -3000 ml 960 ml 460 ml Results Result Diagram: 05/26/17 0928 05/26/17 0733 Results 24 hrs Laboratory Tests Test 05/26/17 12:36 05/26/17 17:31 05/27/17 00:22 05/27/17 06:01 Bedside Glucose 170 163 189 164 Test 05/27/17 10:19 White Blood Count Pending Red Blood Count Pending Hemoglobin Pending Hematocrit Pending Mean Corpuscular Volume Pending Mean Corpuscular Hemoglobin Pending Mean Corpuscular Hemoglobin Concent Pending Red Cell Distribution Width Pending Platelet Count Pending Mean Platelet Volume Pending Medications Medications Current Medications Metoprolol Tartrate (Lopressor) 5 mg Q4H PRN IV HR>110 Hold SBP<110 Last administered on 04/20/17 17:36; Admin Dose 5 MG; Start 04/11/17 at 13:30 Miscellaneous Information 1 ea NOTE XX ; Start 04/11/17 at 16:30 Glucose (Glutose) 15 gm Q15M PRN PO DECREASED GLUCOSE Last administered on 05/07 03:27; Admin Dose 15 GM; Start 04/11/17 at 16:30 Glucose (Glutose) 22.5 gm Q15M PRN PO DECREASED GLUCOSE; Start 04/11/17 at 16: 30 Dextrose (D50w Syringe) 25 ml Q15M PRN IV DECREASED GLUCOSE Last administered on 04/12/17 23:56; Admin Dose 25 ML; Start 04/11/17 at 16:30 Dextrose (D50w Syringe) 50 ml Q15M PRN IV DECREASED GLUCOSE; Start 04/11/17 at 16:30 Glucagon (Glucagen) 1 mg Q15M PRN IM DECREASED GLUCOSE; Start 04/11/17 at 16:30 Glucose (Glutose) 15 gm Q15M PRN BUCCAL DECREASED GLUCOSE; Start 04/11/17 at 16 :30 Metoclopramide HCl (Reglan) 10 mg Q6 IV Last administered on 05/27/17 05:48; Admin Dose 10 MG; Start 04/12/17 at 18:00 Insulin Aspart (Novolog Insulin Pen) NOVOLOG *MILD* ALGORI... Q6H SC Last administered on 05/27/17 00:24; Admin Dose 2 UNIT; Start 04/15/17 at 00:00 IV Flush (NS 10 ml) 10 ml PRN PRN IV FLUSH LINE; Start 04/15/17 at 13:00 Amiodarone HCl (Cordarone) 200 mg BID GTB Last administered on 05/27/17 09:08 ; Admin Dose 200 MG; Start 04/16/17 at 13:00 Heparin Sodium (Porcine) (Heparin (5000 Units/0.5 ml)) 5,000 unit BID SC Last administered on 04/30/17 21:03; Admin Dose 5,000 UNIT; Start 04/18/17 at 16:22; Status Future Hold Citalopram Hydrobromide (Celexa) 20 mg DAILY NGT Last administered on 09:08; Admin Dose 20 MG; Start 04/19/17 at 09:00 Hydralazine HCl (Apresoline) 20 mg Q6H PRN IV sbp ABOVE 160 Last administered on 05/22/17 19:59; Admin Dose 20 MG; Start 04/18/17 at 18:30 Chlorhexidine Gluconate (Peridex) 15 ml BID MT Last administered on 05/27/17 09:07; Admin Dose 15 ML; Start 04/22/17 at 21:00 Vitamin A/Vitamin D (Vitamin A & D Oint) 1 applic TID TOP Last administered on 05/27/17 09:08; Admin Dose 1 APPLIC; Start 04/22/17 at 21:00 Vitamin A/Vitamin D (Vitamin A & D Oint) 1 applic TID PRN TOP DRYNESS Last administered on 04/22/17 15:29; Admin Dose 1 APPLIC; Start 04/22/17 at 15:00 Acetaminophen/ Hydrocodone Bitart ([place] (5/325)) 1 tab Q6H GTB Last administered on 05/27/17 09:09; Admin Dose 1 TAB; Start 04/22/17 at 21:30 Spironolactone (Aldactone) 25 mg DAILY NGT Last administered on 05/27/17 09:08 ; Admin Dose 25 MG; Start 04/25/17 at 19:00; Status Future hold Diltiazem HCl 5 mg 5 mg Q1H PRN IV HEART RATE GREATER THAN 120 Last administered on 04/29/17 06:17; Admin Dose 5 MG; Start 04/29/17 at 05:00 Sodium Chloride 1,000 ml @ 0 mls/hr Q0M IV Last administered on 05/01/17 03: 00; Admin Dose 1,000 MLS/HR; Start 05/01/17 at 03:00 Sodium Chloride 1,000 ml @ 0 mls/hr Q0M IV Last administered on 05/01/17 04: 00; Admin Dose 1,000 MLS/HR; Start 05/01/17 at 03:30 Diltiazem HCl (Cardizem-D5W 125 Mg/125 ml Drip) 125 ml @ 5 mls/hr TITRATE IV Last administered on 05/02/17 19:11; Admin Dose 5 MLS/HR; Start 05/02/17 at 19: 00 Metoprolol Tartrate (Lopressor) 25 mg QID GTB Last administered on 05/27/17 09 :09; Admin Dose 25 MG; Start 05/07/17 at 09:00 Furosemide (Lasix) 40 mg Q12 IV Last administered on 05/27/17 09:08; Admin Dose 40 MG; Start 05/08/17 at 09:00 Vitamin B Complex/ Vitamin C (Berocca) 1 cap DAILY PO Last administered on 05/27 09:08; Admin Dose 1 CAP; Start 05/13/17 at 09:00 Nystatin (Nystatin Susp) 5 ml QID PO Last administered on 05/27/17 09:08; Admin Dose 5 ML; Start 05/12/17 at 17:00 Aspirin (Aspirin) 81 mg DAILY NGT Last administered on 05/27/17 09:08; Admin Dose 81 MG; Start 05/19/17 at 09:00 Lansoprazole (Prevacid) 30 mg BID@18 GTB Last administered on 05/27/17 05: 48; Admin Dose 30 MG; Start 05/20/17 at 18:00 Multivitamins (Multivitamin) 30 ml DAILY GTB Last administered on 05/27/17 09: 07; Admin Dose 30 ML; Start 05/24/17 at 09:00 Hydrocortisone (Solu-Cortef) 15 mg TID IV Last administered on 05/27/17 09:07 ; Admin Dose 15 MG; Start 05/26/17 at 21:00 DERECK QUINTERO DO May 27, 2017 10:52
[2017-05-27 11:00] LABS: ABNORMAL IP MESSAGE 1; BASOPHILS % 0.3 % (0.0-2.0); EOSINOPHILS # 0.1 10^3/ul (0.0-0.5); EOSINOPHILS % 0.7 % (0.0-7.0); HEMATOCRIT 30.8 % (37.0-47.0); HEMOGLOBIN 10.3 g/dl (12.0-16.0); LYMPHOCYTES # 1.1 10^3/ul (0.8-2.9); LYMPHOCYTES % 8.5 % (15.0-51.0); MEAN CORPUSCULAR HEMOGLOBIN 31.2 pg (29.0-33.0); MEAN CORPUSCULAR HGB CONC 33.4 g/dl (32.0-37.0); MEAN CORPUSCULAR VOLUME 93.3 fl (82.0-101.0); MEAN PLATELET VOLUME 10.9 fl (7.4-10.4); MONOCYTE # 1.4 10^3/ul (0.3-0.9); NEUTROPHILS % 75.8 % (39.0-77.0); PLATELET COUNT 155 10^3/UL (140-415); RED CELL DISTRIBUTION WIDTH 22.4 % (11.5-14.5); WHITE BLOOD COUNT 12.6 10^3/ul (4.8-10.8)
[2017-05-27 11:03] LABS: POSITIVE DIFF @See below
--- NOTE | 2017-05-27 11:18 | CONS ---
Date/Time of Note Date/Time of Note DATE: 05/27/17 TIME: 11:14 Assessment/Plan Assessment/Plan Additional Assessment/Plan Ventilator settings; SIMV of 8, tidal volume 450, pressure support of 10, PEEP of 5, 35% FiO2. Assessment and recommendations; 1. Patient admitted with severe pneumonia off antibiotics now 2. Chronic respiratory failure on invasive mechanical ventilation. 3. Prolonged hospital stay during current admission as well as in the recent past. 4. Renal failure, on hemodialysis. 5. Generalized deconditioning. 6. Prior history of glossal cancer. Status post redo tracheostomy 2. Continue current treatment. Patient does have excellent weaning parameters on CPAP mode, however the patient does have episodes of severe somnolence where she becomes almost apneic and that is precluding us from weaning her off from invasive mechanical ventilation at this point. Consultation Date/Type/Reason Admit Date/Time Apr 11, 2017 at 11:28 Initial Consult Date 05/01/17 Type of Consultation: Pulmonary Referring Provider: NINA MACIEL DO 24 HR Interval Summary Free Text/Dictation Patient condition is stable. Remains completely awake and alert. Has remained hemodynamically stable. General exam; elderly woman, on ventilator via tracheostomy, awake and alert. Currently in no distress. Exam/Review of Systems Vital Signs Vitals Vital Signs Date Time Temp Pulse Resp B/P Pulse Ox O2 Delivery O2 Flow Rate FiO2 05/27/17 08:12 78 05/27/17 07:36 98.7 18 116/79 100 05/27/17 05:17 35 Intake and Output 05/26/17 05/26/17 05/27/17 15:00 23:00 07:00 Intake Total 500 ml 1160 ml 860 ml Output Total 3500 ml 200 ml 400 ml Balance -3000 ml 960 ml 460 ml Exam HEENT exam; supple neck, no JVD. No lymphadenopathy. Midline trachea. No thyromegaly. Patient has fair dentition. Tracheostomy in place. Insertion site is clean. There is complete resolution of lip excoriation. Chest exam; diminished but clear breath sounds. S1-S2 audible, no murmurs. Regular rhythm. Abdomen exam; soft, no organomegaly. Bowel sounds audible. G-tube in place. Extremity exam; 2+ pitting edema in lower extremities bilaterally. [employer] exam; no focal deficit. Patient however still has significant generalized muscular weakness. Results Result Diagram: 05/27/17 1019 05/26/17 0733 Results 24 hrs Laboratory Tests Test 05/26/17 12:36 05/26/17 17:31 05/27/17 00:22 05/27/17 06:01 Bedside Glucose 170 163 189 164 Test 05/27/17 10:19 White Blood Count 12.6 #H Red Blood Count 3.30 #L Hemoglobin 10.3 #L Hematocrit 30.8 #L Mean Corpuscular Volume 93.3 Mean Corpuscular Hemoglobin 31.2 Mean Corpuscular Hemoglobin Concent 33.4 Red Cell Distribution Width 22.4 H Platelet Count 155 Mean Platelet Volume 10.9 H Neutrophils % 75.8 Lymphocytes % 8.5 L Monocytes % 11.0 Eosinophils % 0.7 Basophils % 0.3 Nucleated Red Blood Cells % 0.0 Neutrophils # (Manual) 9.5 H Lymphocytes # 1.1 Monocytes # 1.4 H Eosinophils # 0.1 Basophils # 0.0 Nucleated Red Blood Cells # 0.0 Medications Medications Current Medications Metoprolol Tartrate (Lopressor) 5 mg Q4H PRN IV HR>110 Hold SBP<110 Last administered on 04/20/17 17:36; Admin Dose 5 MG; Start 04/11/17 at 13:30 Miscellaneous Information 1 ea NOTE XX ; Start 04/11/17 at 16:30 Glucose (Glutose) 15 gm Q15M PRN PO DECREASED GLUCOSE Last administered on 05/07 03:27; Admin Dose 15 GM; Start 04/11/17 at 16:30 Glucose (Glutose) 22.5 gm Q15M PRN PO DECREASED GLUCOSE; Start 04/11/17 at 16: 30 Dextrose (D50w Syringe) 25 ml Q15M PRN IV DECREASED GLUCOSE Last administered on 04/12/17 23:56; Admin Dose 25 ML; Start 04/11/17 at 16:30 Dextrose (D50w Syringe) 50 ml Q15M PRN IV DECREASED GLUCOSE; Start 04/11/17 at 16:30 Glucagon (Glucagen) 1 mg Q15M PRN IM DECREASED GLUCOSE; Start 04/11/17 at 16:30 Glucose (Glutose) 15 gm Q15M PRN BUCCAL DECREASED GLUCOSE; Start 04/11/17 at 16 :30 Metoclopramide HCl (Reglan) 10 mg Q6 IV Last administered on 05/27/17 05:48; Admin Dose 10 MG; Start 04/12/17 at 18:00 Insulin Aspart (Novolog Insulin Pen) NOVOLOG *MILD* ALGORI... Q6H SC Last administered on 05/27/17 00:24; Admin Dose 2 UNIT; Start 04/15/17 at 00:00 IV Flush (NS 10 ml) 10 ml PRN PRN IV FLUSH LINE; Start 04/15/17 at 13:00 Amiodarone HCl (Cordarone) 200 mg BID GTB Last administered on 05/27/17 09:08 ; Admin Dose 200 MG; Start 04/16/17 at 13:00 Heparin Sodium (Porcine) (Heparin (5000 Units/0.5 ml)) 5,000 unit BID SC Last administered on 04/30/17 21:03; Admin Dose 5,000 UNIT; Start 04/18/17 at 16:22; Status Future Hold Citalopram Hydrobromide (Celexa) 20 mg DAILY NGT Last administered on 09:08; Admin Dose 20 MG; Start 04/19/17 at 09:00 Hydralazine HCl (Apresoline) 20 mg Q6H PRN IV sbp ABOVE 160 Last administered on 05/22/17 19:59; Admin Dose 20 MG; Start 04/18/17 at 18:30 Chlorhexidine Gluconate (Peridex) 15 ml BID MT Last administered on 05/27/17 09:07; Admin Dose 15 ML; Start 04/22/17 at 21:00 Vitamin A/Vitamin D (Vitamin A & D Oint) 1 applic TID TOP Last administered on 05/27/17 09:08; Admin Dose 1 APPLIC; Start 04/22/17 at 21:00 Vitamin A/Vitamin D (Vitamin A & D Oint) 1 applic TID PRN TOP DRYNESS Last administered on 04/22/17 15:29; Admin Dose 1 APPLIC; Start 04/22/17 at 15:00 Acetaminophen/ Hydrocodone Bitart ([place] (5/325)) 1 tab Q6H GTB Last administered on 05/27/17 09:09; Admin Dose 1 TAB; Start 04/22/17 at 21:30 Spironolactone (Aldactone) 25 mg DAILY NGT Last administered on 05/27/17 09:08 ; Admin Dose 25 MG; Start 04/25/17 at 19:00; Status Future hold Diltiazem HCl 5 mg 5 mg Q1H PRN IV HEART RATE GREATER THAN 120 Last administered on 04/29/17 06:17; Admin Dose 5 MG; Start 04/29/17 at 05:00 Sodium Chloride 1,000 ml @ 0 mls/hr Q0M IV Last administered on 05/01/17 03: 00; Admin Dose 1,000 MLS/HR; Start 05/01/17 at 03:00 Sodium Chloride 1,000 ml @ 0 mls/hr Q0M IV Last administered on 05/01/17 04: 00; Admin Dose 1,000 MLS/HR; Start 05/01/17 at 03:30 Diltiazem HCl (Cardizem-D5W 125 Mg/125 ml Drip) 125 ml @ 5 mls/hr TITRATE IV Last administered on 05/02/17 19:11; Admin Dose 5 MLS/HR; Start 05/02/17 at 19: 00 Metoprolol Tartrate (Lopressor) 25 mg QID GTB Last administered on 05/27/17 09 :09; Admin Dose 25 MG; Start 05/07/17 at 09:00 Furosemide (Lasix) 40 mg Q12 IV Last administered on 05/27/17 09:08; Admin Dose 40 MG; Start 05/08/17 at 09:00 Vitamin B Complex/ Vitamin C (Berocca) 1 cap DAILY PO Last administered on 05/27 09:08; Admin Dose 1 CAP; Start 05/13/17 at 09:00 Nystatin (Nystatin Susp) 5 ml QID PO Last administered on 05/27/17 09:08; Admin Dose 5 ML; Start 05/12/17 at 17:00 Aspirin (Aspirin) 81 mg DAILY NGT Last administered on 05/27/17 09:08; Admin Dose 81 MG; Start 05/19/17 at 09:00 Lansoprazole (Prevacid) 30 mg BID@,18 GTB Last administered on 05/27/17 05: 48; Admin Dose 30 MG; Start 05/20/17 at 18:00 Multivitamins (Multivitamin) 30 ml DAILY GTB Last administered on 05/27/17 09: 07; Admin Dose 30 ML; Start 05/24/17 at 09:00 Hydrocortisone (Solu-Cortef) 15 mg TID IV Last administered on 05/27/17 09:07 ; Admin Dose 15 MG; Start 05/26/17 at 21:00 Metolazone (Zaroxolyn) 5 mg DAILY PEG ; Start 05/27/17 at 11:00 EMILIANO HICKS May 27, 2017 11:17
[2017-05-27 11:24] LABS: CALCIUM 8.7 mg/dl (8.4-10.2); CREATININE 1.59 mg/dl (0.44-1.00); MAGNESIUM 2.7 mg/dl (1.7-2.5); PHOSPHORUS 3.1 mg/dl (2.5-4.9); POTASSIUM 3.9 mmol/L (3.5-5.1)
[2017-05-27 11:45] LABS: T3 UPTAKE 39.8 % (23.5-40.5)
--- NOTE | 2017-05-27 14:19 | CONS ---
Date/Time of Note Date/Time of Note DATE: 05/27/17 TIME: 14:18 Consult Date/Type/Reason Admit Date/Time Apr 11, 2017 at 11:28 Initial Consult Date 04/12/17 Type of Consultation: CARDIOLOGY Ordering Provider: NINA MACIEL DO Subjective CARDIOLOGY FOLLOW UP NOTE: D/W D/W staff and rhythm was reviewed. pt remains in NSR. no afib overnight no chest pain or pressure or palpitations. pt still s/p trach on vent on tele. s/p transfusion on 05/14/17 and getting transfused again 05/26/17 pt is less sleepy/ drowsy today Objective: General: s/p trach on vent HEENT: NC/AT. . oropharynx with multiple lesions. . NECK: NO JVD. no stridor. s/p trach on vent CV: RRR. systolic ejection murmur; no gallop or rubs. PULM: + mild rhonchi. no wheezes. GI: SOFT, NT, ND, no rebound or guarding s/p PEG Extremity: 1-2+ B/L LE edema. no clubbing. neuro: awake and responds appropriately Psych: calm rectal: deferred Derm: multiple echymosis : S/P mims catheter in place. Objective Vital Signs Date Time Temp Pulse Resp B/P Pulse Ox O2 Delivery O2 Flow Rate FiO2 05/27/17 12:10 75 05/27/17 11:35 98.0 18 162/79 99 05/27/17 08:30 35 Intake and Output 05/26/17 05/26/17 05/27/17 15:00 23:00 07:00 Intake Total 500 ml 1160 ml 860 ml Output Total 3500 ml 200 ml 400 ml Balance -3000 ml 960 ml 460 ml Results/Medications Result Diagram: 05/27/17 1019 05/27/17 1019 Results 24 hrs Laboratory Tests Test 05/26/17 17:31 05/27/17 00:22 05/27/17 06:01 05/27/17 10:18 Bedside Glucose 163 189 164 Free Thyroxine Index 1.83 Thyroxine (T4) 4.6 L Triiodothyronine (T3) Uptake 39.8 Test 05/27/17 10:19 05/27/17 12:11 White Blood Count 12.6 #H Red Blood Count 3.30 #L Hemoglobin 10.3 #L Hematocrit 30.8 #L Mean Corpuscular Volume 93.3 Mean Corpuscular Hemoglobin 31.2 Mean Corpuscular Hemoglobin Concent 33.4 Red Cell Distribution Width 22.4 H Platelet Count 155 Mean Platelet Volume 10.9 H Neutrophils % 75.8 Lymphocytes % 8.5 L Monocytes % 11.0 Eosinophils % 0.7 Basophils % 0.3 Nucleated Red Blood Cells % 0.0 Neutrophils # (Manual) 9.5 H Lymphocytes # 1.1 Monocytes # 1.4 H Eosinophils # 0.1 Basophils # 0.0 Nucleated Red Blood Cells # 0.0 Sodium Level 140 Potassium Level 3.9 Chloride Level 98 Carbon Dioxide Level 30 Anion Gap 16 Blood Urea Nitrogen 76 H Creatinine 1.59 H Glucose Level 142 Calcium Level 8.7 Phosphorus Level 3.1 Magnesium Level 2.7 H Bedside Glucose 160 Medications Current Medications Metoprolol Tartrate (Lopressor) 5 mg Q4H PRN IV HR>110 Hold SBP<110 Last administered on 04/20/17 17:36; Admin Dose 5 MG; Start 04/11/17 at 13:30 Miscellaneous Information 1 ea NOTE XX ; Start 04/11/17 at 16:30 Glucose (Glutose) 15 gm Q15M PRN PO DECREASED GLUCOSE Last administered on 05/07 03:27; Admin Dose 15 GM; Start 04/11/17 at 16:30 Glucose (Glutose) 22.5 gm Q15M PRN PO DECREASED GLUCOSE; Start 04/11/17 at 16: 30 Dextrose (D50w Syringe) 25 ml Q15M PRN IV DECREASED GLUCOSE Last administered on 04/12/17 23:56; Admin Dose 25 ML; Start 04/11/17 at 16:30 Dextrose (D50w Syringe) 50 ml Q15M PRN IV DECREASED GLUCOSE; Start 04/11/17 at 16:30 Glucagon (Glucagen) 1 mg Q15M PRN IM DECREASED GLUCOSE; Start 04/11/17 at 16:30 Glucose (Glutose) 15 gm Q15M PRN BUCCAL DECREASED GLUCOSE; Start 04/11/17 at 16 :30 Metoclopramide HCl (Reglan) 10 mg Q6 IV Last administered on 05/27/17 12:13; Admin Dose 10 MG; Start 04/12/17 at 18:00 Insulin Aspart (Novolog Insulin Pen) NOVOLOG *MILD* ALGORI... Q6H SC Last administered on 05/27/17 12:16; Admin Dose 1 UNIT; Start 04/15/17 at 00:00 IV Flush (NS 10 ml) 10 ml PRN PRN IV FLUSH LINE; Start 04/15/17 at 13:00 Amiodarone HCl (Cordarone) 200 mg BID GTB Last administered on 05/27/17 09:08 ; Admin Dose 200 MG; Start 04/16/17 at 13:00 Heparin Sodium (Porcine) (Heparin (5000 Units/0.5 ml)) 5,000 unit BID SC Last administered on 04/30/17 21:03; Admin Dose 5,000 UNIT; Start 04/18/17 at 16:22; Status Future Hold Citalopram Hydrobromide (Celexa) 20 mg DAILY NGT Last administered on 09:08; Admin Dose 20 MG; Start 04/19/17 at 09:00 Hydralazine HCl (Apresoline) 20 mg Q6H PRN IV sbp ABOVE 160 Last administered on 05/22/17 19:59; Admin Dose 20 MG; Start 04/18/17 at 18:30 Chlorhexidine Gluconate (Peridex) 15 ml BID MT Last administered on 05/27/17 09:07; Admin Dose 15 ML; Start 04/22/17 at 21:00 Vitamin A/Vitamin D (Vitamin A & D Oint) 1 applic TID TOP Last administered on 05/27/17 12:14; Admin Dose 1 APPLIC; Start 04/22/17 at 21:00 Vitamin A/Vitamin D (Vitamin A & D Oint) 1 applic TID PRN TOP DRYNESS Last administered on 04/22/17 15:29; Admin Dose 1 APPLIC; Start 04/22/17 at 15:00 Acetaminophen/ Hydrocodone Bitart ([place] (5/325)) 1 tab Q6H GTB Last administered on 05/27/17 09:09; Admin Dose 1 TAB; Start 04/22/17 at 21:30 Spironolactone (Aldactone) 25 mg DAILY NGT Last administered on 05/27/17 09:08 ; Admin Dose 25 MG; Start 04/25/17 at 19:00; Status Future hold Diltiazem HCl 5 mg 5 mg Q1H PRN IV HEART RATE GREATER THAN 120 Last administered on 04/29/17 06:17; Admin Dose 5 MG; Start 04/29/17 at 05:00 Sodium Chloride 1,000 ml @ 0 mls/hr Q0M IV Last administered on 05/01/17 03: 00; Admin Dose 1,000 MLS/HR; Start 05/01/17 at 03:00 Sodium Chloride 1,000 ml @ 0 mls/hr Q0M IV Last administered on 05/01/17 04: 00; Admin Dose 1,000 MLS/HR; Start 05/01/17 at 03:30 Diltiazem HCl (Cardizem-D5W 125 Mg/125 ml Drip) 125 ml @ 5 mls/hr TITRATE IV Last administered on 05/02/17 19:11; Admin Dose 5 MLS/HR; Start 05/02/17 at 19: 00 Metoprolol Tartrate (Lopressor) 25 mg QID GTB Last administered on 05/27/17 12 :14; Admin Dose 25 MG; Start 05/07/17 at 09:00 Furosemide (Lasix) 40 mg Q12 IV Last administered on 05/27/17 09:08; Admin Dose 40 MG; Start 05/08/17 at 09:00 Vitamin B Complex/ Vitamin C (Berocca) 1 cap DAILY PO Last administered on 05/27 09:08; Admin Dose 1 CAP; Start 05/13/17 at 09:00 Nystatin (Nystatin Susp) 5 ml QID PO Last administered on 05/27/17 12:13; Admin Dose 5 ML; Start 05/12/17 at 17:00 Aspirin (Aspirin) 81 mg DAILY NGT Last administered on 05/27/17 09:08; Admin Dose 81 MG; Start 05/19/17 at 09:00 Lansoprazole (Prevacid) 30 mg BID@,18 GTB Last administered on 05/27/17 05: 48; Admin Dose 30 MG; Start 05/20/17 at 18:00 Multivitamins (Multivitamin) 30 ml DAILY GTB Last administered on 05/27/17 09: 07; Admin Dose 30 ML; Start 05/24/17 at 09:00 Hydrocortisone (Solu-Cortef) 15 mg TID IV Last administered on 05/27/17t 12:13 ; Admin Dose 15 MG; Start 05/26/17 at 21:00 Metolazone (Zaroxolyn) 5 mg DAILY PEG ; Start 05/27/17 at 11:00 Assessment/Plan Chief Complaint/Hosp Course 1. acute on chronic hypoxemic respiratory failure: 2. S/P NSTEMI: due to demand ischemia. 3. CHF/ fluid overload: due to diastolic heart failure 4. moderate 5. Arrhythmia and P afib, frequent PVC: currently in NSR. 6. ANEMIA: s/p multiple transfusion 7. s/p pneumonia, . 8. s/p sepsis and shock: BP is stable now. 9. Anasarca 10. s/p cardiopulm arrest due to resp failure 11. renal failure 12. coagulopathy Rec: cont resp care as per PULM Team. correct lytes prn. CONT betablocker as tolerated. . cont thyroid supplement . cont tele monitoring HD/ ultrafiltration will be deferred to renal. transfuse prn cont low dose ASA 81 mg only due to recurrent anemia. THANK YOU. Problems: FRANCISCO BLACKWOOD MD May 27, 2017 14:19
--- NOTE | 2017-05-27 14:32 | PN ---
Date/Time of Note Date/Time of Note DATE: 05/27/17 TIME: 14:29 Assessment/Plan Lines/Catheters IV Catheter Type (from [facility]): Amrit Latif in Place (from [facility]): Yes Assessment/Plan Chief Complaint/Hosp Course 1. Cholelithiasis: Tolerating tube feeds; no abdominal pain/discomfort/bloating ; +bowel function -No surgical intervention required at this time 2. Pneumonia: Recurrent +sputum cultures; appears comfortable, no fevers, s/p abx -pulmonary toilet -wean as tolerated 3. Vent dependent respiratory failure: 2/2 aspiration PNA+ CHF;reintubated and extubated, coded 04/21 and 05/01; comfortable on vent; on SIMV -as above 4. KEYONNA: likely 2/2 septic shock; with + urine output; will need residential HD, HD today unable 2/2 poor flow in catheter; cathflow given -judicious fluid management -avoid nephrotoxic agents 5. Uncontrolled Afib: s/p amiodarone drip, on oral amiodarone; episodes of Afib Now SR -medical optimization 6. Leukocytosis with lactic acidosis: 2/2 pneumonia +/- steroids vs.fungemia vs other (urine, repeat blood cultures negative); labile -per ID 7. Macrocytic anemia: chronic vs. dilutional vs. acute bleed vs. b12/folate deficiency; hh stable -monitor -Transfuse as needed 8. Electrolyte imbalance: (hyponatremia, hypokalemia); improved -electrolyte optimization 9. CHF: BNP elevated -judicious fluid management -medical optimization 10. Adrenal Insufficiency -solucortef 11. Oral lesions: improving 12. Hypothyroidism; tsh elevated -on synthroid 13. Hypocalcemia with hypoalbuminemia -optimize nutrition 14. Bilateral upper and lower extremity edema: hx(+) Thrombus in upper arm; lower leg pain, doppler (-) -elevate extremities -supportive 15. Hypoalbuminemia: 2/2 malnutrition +/- inflammation; decreased; tolerating tf ; -nutrition optimization -as above Patient seen and examined in collaboration with Dr. Justus Antonio. Thank you Problems: Subjective 24 Hr Interval Summary Feels well. In good spirits. HD not done this am due to poor flow from dialysis cath. No fevers, chills, abd pain. +bowel function. comfortable on vent. Exam/Review of Systems Vital Signs Vitals Vital Signs Date Time Temp Pulse Resp B/P Pulse Ox O2 Delivery O2 Flow Rate FiO2 05/27/17 12:10 75 05/27/17 11:35 98.0 18 162/79 99 05/27/17 08:30 35 Intake and Output 05/26/17 05/26/17 05/27/17 15:00 23:00 07:00 Intake Total 500 ml 1160 ml 860 ml Output Total 3500 ml 200 ml 400 ml Balance -3000 ml 960 ml 460 ml Exam Free Text/Dictation Constitutional: awake alert pleasant Head: atraumatic, normocephalic Eyes: PERRL, nl lids, nl sclera ENMT: No mucosa pink and moist (pink and moist with healing perioral lesions) Neck: non-tender, supple, tracheostomy Respiratory: diminished, comfortable on vent, min sputum Cardiovascular: nl pulses, regular rate and rhythm, Gastrointestinal: non distended, GT tubes site no erythema, no drainage, non tenderness, bowel sounds x 4 quads, soft; tf ongoing Genitourinary - Female: nl external genitalia Musculoskeletal: nl extremities to inspection Extremities: normal pulses, bilateral upper/lower extremity edema 1+; improved extremity edema Neurological: responsive Skin: nl turgor, No rash or lesions Lymph: nl lymph node Results Result Diagram: 05/27/17 1019 05/27/17 1019 ADDISON FREGOSO NP May 27, 2017 14:32
--- NOTE | 2017-05-27 15:25 | RADRPT ---
PROCEDURE: Chest xray. CLINICAL INDICATION: Pulmonary edema TECHNIQUE: A portable semi-erect AP view of the chest was obtained. COMPARISON: 05/11/2017, 05/02/2017, and 05/01/2017. FINDINGS: The percutaneous tracheostomy tube is in stable position. The cardiomediastinal silhouette is withi n normal limits. Atherosclerotic calcifications are again noted in the aorta. The lungs are well exp anded and show prominent interstitial markings diffusely, similar to 05/11/2017. There is a 1.5 cm nodular opacity projecting in the mid right lung which appears new when compared to the prior chest x-rays and may be artifactual. No focal opacity is identified in the left lung. No pleural effusion or pneumothorax is identified bilaterally. The skeletal structures and soft tissues are unremarkabl e. IMPRESSION: 1.5 cm nodular opacity projecting in the mid right lung, new when compared to 05/11/2017, possibly a rtifactual. Recommend repeating the chest x-ray with 2 views (upright PA and lateral) for further e valuation. Mild diffuse interstitial prominence, similar to 05/11/2017. The findings and recommendation for repeat chest x-ray were discussed with the patient's nurse Keiko nixon by telephone on 05/27/2017 at 3:25pm. RPTAT:PP .Helen Rudolph MD, Date Time Electronically viewed and signed by .Helen Rudolph MD, on 05/27/2017 15:24 .K/
[2017-05-27] MEDS: METOLAZONE 5 MG TAB PEG SCH (16:36)
--- NOTE | 2017-05-27 17:03 | CONS ---
Date/Time of Note Date/Time of Note DATE: 05/27/17 TIME: 17:02 Assessment/Plan Assessment/Plan Chief Complaint/Hosp Course SUBJECTIVE: No acute events overnight. The patient is awake, looks comfortable. No fevers. Denies pain, discomfort. Indwelling: Trach, bag Latif, right femoral Amrit catheter. PHYSICAL EXAMINATION: This is a fragile, chronically ill- appearing, elderly woman who is awake, in no distress. HEENT: Head atraumatic, normocephalic. Sclerae anicteric. Buccal mucosa dry. NECK: Supple. Tracheostomy present. CHEST: Chest rise symmetric. Breath sounds diminished at bases. HEART: S1, S2. ABDOMEN: Soft. Bowel sounds present. EXTREMITIES: Without cyanosis. SKIN: Positive for anasarca. ASSESSMENT: 1. Status post septic shock, urinary tract infection, pneumonia. 2. [id number] respiratory failure. 3. Status post fungemia. 4. Cjjoz-he-ofsvcyt kidney disease. 5. History of Clostridium difficile colitis. 6. Left upper extremity deep vein thrombosis. PLAN: The patient remains stable off antibiotics, will baker cx prn DW at bedside Problems: Consultation Date/Type/Reason Admit Date/Time Apr 11, 2017 at 11:28 Initial Consult Date 04/12/17 Type of Consultation: id Referring Provider: NINA MACIEL DO Exam/Review of Systems Vital Signs Vitals Vital Signs Date Time Temp Pulse Resp B/P Pulse Ox O2 Delivery O2 Flow Rate FiO2 05/27/17 16:10 80 05/27/17 15:43 98.4 20 124/64 100 05/27/17 08:30 35 Intake and Output 05/26/17 05/26/17 05/27/17 14:59 22:59 06:59 Intake Total 500 ml 1160 ml 860 ml Output Total 3500 ml 200 ml 400 ml Balance -3000 ml 960 ml 460 ml Results Result Diagram: 05/27/17 1019 05/27/17 1019 Results 24 hrs Laboratory Tests Test 05/26/17 17:31 05/27/17 00:22 05/27/17 06:01 05/27/17 10:18 Bedside Glucose 163 189 164 Free Thyroxine Index 1.83 Thyroxine (T4) 4.6 L Triiodothyronine (T3) Uptake 39.8 Test 05/27/17 10:19 05/27/17 12:11 White Blood Count 12.6 #H Red Blood Count 3.30 #L Hemoglobin 10.3 #L Hematocrit 30.8 #L Mean Corpuscular Volume 93.3 Mean Corpuscular Hemoglobin 31.2 Mean Corpuscular Hemoglobin Concent 33.4 Red Cell Distribution Width 22.4 H Platelet Count 155 Mean Platelet Volume 10.9 H Neutrophils % 75.8 Lymphocytes % 8.5 L Monocytes % 11.0 Eosinophils % 0.7 Basophils % 0.3 Nucleated Red Blood Cells % 0.0 Neutrophils # (Manual) 9.5 H Lymphocytes # 1.1 Monocytes # 1.4 H Eosinophils # 0.1 Basophils # 0.0 Nucleated Red Blood Cells # 0.0 Sodium Level 140 Potassium Level 3.9 Chloride Level 98 Carbon Dioxide Level 30 Anion Gap 16 Blood Urea Nitrogen 76 H Creatinine 1.59 H Glucose Level 142 Calcium Level 8.7 Phosphorus Level 3.1 Magnesium Level 2.7 H Bedside Glucose 160 Medications Medications Current Medications Metoprolol Tartrate (Lopressor) 5 mg Q4H PRN IV HR>110 Hold SBP<110 Last administered on 04/20/17 17:36; Admin Dose 5 MG; Start 04/11/17 at 13:30 Miscellaneous Information 1 ea NOTE XX ; Start 04/11/17 at 16:30 Glucose (Glutose) 15 gm Q15M PRN PO DECREASED GLUCOSE Last administered on 05/07 03:27; Admin Dose 15 GM; Start 04/11/17 at 16:30 Glucose (Glutose) 22.5 gm Q15M PRN PO DECREASED GLUCOSE; Start 04/11/17 at 16: 30 Dextrose (D50w Syringe) 25 ml Q15M PRN IV DECREASED GLUCOSE Last administered on 04/12/17 23:56; Admin Dose 25 ML; Start 04/11/17 at 16:30 Dextrose (D50w Syringe) 50 ml Q15M PRN IV DECREASED GLUCOSE; Start 04/11/17 at 16:30 Glucagon (Glucagen) 1 mg Q15M PRN IM DECREASED GLUCOSE; Start 04/11/17 at 16:30 Glucose (Glutose) 15 gm Q15M PRN BUCCAL DECREASED GLUCOSE; Start 04/11/17 at 16 :30 Metoclopramide HCl (Reglan) 10 mg Q6 IV Last administered on 05/27/17 12:13; Admin Dose 10 MG; Start 04/12/17 at 18:00 Insulin Aspart (Novolog Insulin Pen) NOVOLOG *MILD* ALGORI... Q6H SC Last administered on 05/27/17 12:16; Admin Dose 1 UNIT; Start 04/15/17 at 00:00 IV Flush (NS 10 ml) 10 ml PRN PRN IV FLUSH LINE; Start 04/15/17 at 13:00 Amiodarone HCl (Cordarone) 200 mg BID GTB Last administered on 05/27/17 09:08 ; Admin Dose 200 MG; Start 04/16/17 at 13:00 Heparin Sodium (Porcine) (Heparin (5000 Units/0.5 ml)) 5,000 unit BID SC Last administered on 04/30/17 21:03; Admin Dose 5,000 UNIT; Start 04/18/17 at 16:22; Status Future Hold Citalopram Hydrobromide (Celexa) 20 mg DAILY NGT Last administered on 09:08; Admin Dose 20 MG; Start 04/19/17 at 09:00 Hydralazine HCl (Apresoline) 20 mg Q6H PRN IV sbp ABOVE 160 Last administered on 05/22/17 19:59; Admin Dose 20 MG; Start 04/18/17 at 18:30 Chlorhexidine Gluconate (Peridex) 15 ml BID MT Last administered on 05/27/17 09:07; Admin Dose 15 ML; Start 04/22/17 at 21:00 Vitamin A/Vitamin D (Vitamin A & D Oint) 1 applic TID TOP Last administered on 05/27/17 12:14; Admin Dose 1 APPLIC; Start 04/22/17 at 21:00 Vitamin A/Vitamin D (Vitamin A & D Oint) 1 applic TID PRN TOP DRYNESS Last administered on 04/22/17 15:29; Admin Dose 1 APPLIC; Start 04/22/17 at 15:00 Acetaminophen/ Hydrocodone Bitart ([place] (5/325)) 1 tab Q6H GTB Last administered on 05/27/17 16:36; Admin Dose 1 TAB; Start 04/22/17 at 21:30 Spironolactone (Aldactone) 25 mg DAILY NGT Last administered on 05/27/17 09:08 ; Admin Dose 25 MG; Start 04/25/17 at 19:00; Status Future hold Diltiazem HCl 5 mg 5 mg Q1H PRN IV HEART RATE GREATER THAN 120 Last administered on 04/29/17 06:17; Admin Dose 5 MG; Start 04/29/17 at 05:00 Sodium Chloride 1,000 ml @ 0 mls/hr Q0M IV Last administered on 05/01/17 03: 00; Admin Dose 1,000 MLS/HR; Start 05/01/17 at 03:00 Sodium Chloride 1,000 ml @ 0 mls/hr Q0M IV Last administered on 05/01/17 04: 00; Admin Dose 1,000 MLS/HR; Start 05/01/17 at 03:30 Diltiazem HCl (Cardizem-D5W 125 Mg/125 ml Drip) 125 ml @ 5 mls/hr TITRATE IV Last administered on 05/02/17 19:11; Admin Dose 5 MLS/HR; Start 05/02/17 at 19: 00 Metoprolol Tartrate (Lopressor) 25 mg QID GTB Last administered on 05/27/17 12 :14; Admin Dose 25 MG; Start 05/07/17 at 09:00 Furosemide (Lasix) 40 mg Q12 IV Last administered on 05/27/17 09:08; Admin Dose 40 MG; Start 05/08/17 at 09:00 Vitamin B Complex/ Vitamin C (Berocca) 1 cap DAILY PO Last administered on 05/27 09:08; Admin Dose 1 CAP; Start 05/13/17 at 09:00 Nystatin (Nystatin Susp) 5 ml QID PO Last administered on 05/27/17 12:13; Admin Dose 5 ML; Start 05/12/17 at 17:00 Aspirin (Aspirin) 81 mg DAILY NGT Last administered on 05/27/17 09:08; Admin Dose 81 MG; Start 05/19/17 at 09:00 Lansoprazole (Prevacid) 30 mg BID@,18 GTB Last administered on 05/27/17 05: 48; Admin Dose 30 MG; Start 05/20/17 at 18:00 Multivitamins (Multivitamin) 30 ml DAILY GTB Last administered on 05/27/17 09: 07; Admin Dose 30 ML; Start 05/24/17 at 09:00 Hydrocortisone (Solu-Cortef) 15 mg TID IV Last administered on 05/27/17 12:13 ; Admin Dose 15 MG; Start 05/26/17 at 21:00 Metolazone (Zaroxolyn) 5 mg DAILY PEG Last administered on 05/27/17 16:36; Admin Dose 5 MG; Start 05/27/17 at 11:00 LORETO MCKEON NP May 27, 2017 17:03
--- NOTE | 2017-05-27 21:17 | CONS ---
Date/Time of Note Date/Time of Note DATE: 05/27/17 TIME: 21:11 Assessment/Plan Assessment/Plan Problems: (1) Hypothyroidism Status: Chronic Comment: FT4I NL demonstrating yesterday's FT4 value likely lab error. Given normal FT4I, would not nazario to increase LT4 dosage. Monitor TFT's over time. Qualifiers: Hypothyroidism type: acquired Qualified Code: E03.9 - Acquired hypothyroidism (2) Steroid dependence Status: Chronic Comment: Hydrocortisone reduced w/o change in vitals. Will monitor Consultation Date/Type/Reason Admit Date/Time Apr 11, 2017 at 11:28 Initial Consult Date 04/14/17 Type of Consultation: Endocrinology Reason for Consultation Steroid dependence Referring Provider: NINA MACIEL DO 24 HR Interval Summary Subjective hx not possible: pt non-verbal Exam/Review of Systems Vital Signs Vitals VS - Last 72 Hours, by Label Date Time Temp Pulse Resp B/P Pulse Ox O2 Delivery O2 Flow Rate FiO2 05/27/17 20:20 80 05/27/17 17:02 81 17 100 35 05/27/17 16:10 80 05/27/17 15:43 98.4 76 20 124/64 100 05/27/17 15:03 77 19 97 35 05/27/17 14:45 82 18 05/27/17 14:45 82 05/27/17 14:30 75 05/27/17 14:00 80 18 05/27/17 14:00 80 05/27/17 13:09 75 22 98 35 05/27/17 12:10 75 05/27/17 11:35 98.0 77 18 162/79 99 05/27/17 11:05 72 14 98 35 05/27/17 09:03 77 20 99 35 05/27/17 08:30 35 05/27/17 08:12 78 05/27/17 07:36 98.7 78 18 116/79 100 05/27/17 07:22 76 19 98 35 05/27/17 05:17 87 15 99 35 05/27/17 04:04 90 05/27/17 04:02 98.1 81 25 131/63 98 05/27/17 03:20 91 17 99 35 05/27/17 01:53 81 15 99 35 05/27/17 00:17 98.1 84 17 129/61 98 8/15/17 00:04 90 14/17 23:40 83 16 99 35 14/17 21:27 82 16 99 35 14/17 20:09 98.0 84 19 123/56 99 14/17 20:04 85 14/17 20:00 35 14/17 19:31 82 17 99 35 14/17 17:05 90 20 100 35 14/17 16:12 98.2 76 21 109/55 100 14/17 16:06 80 14/17 15:15 88 16 100 35 14/17 13:21 77 18 100 35 14/17 12:15 80 14/17 12:00 98.5 78 20 128/75 100 14/17 11:09 79 16 100 35 14/17 10:10 88 20 14/17 10:10 88 14/17 09:40 87 1417 09:25 72 20 100 35 14/17 09:10 86 14/17 08:40 85 14/17 08:30 35 14/17 08:11 81 14/17 08:10 86 14/17 07:40 85 14/17 07:36 98.0 82 19 114/55 100 14/17 07:16 70 16 100 35 14/17 07:10 81 14/17 07:10 81 20 14/17 05:10 75 13 100 35 14/17 04:04 75 14/17 04:00 98.2 78 20 140/68 97 14/17 03:06 76 13 100 35 14/17 01:17 73 15 100 35 814/17 00:08 75 14/17 00:00 98.8 73 15 106/55 97 13/17 23:09 75 20 100 35 813/17 21:05 76 13 100 35 8/13/17 20:25 70 8/13/17 20:00 98.2 77 15 126/62 100 13/17 20:00 35 813/17 19:24 73 15 100 35 813/17 17:10 70 13 100 35 813/17 16:12 74 8/13/17 15:35 76 14 100 35 05/25/17 15:31 97.8 75 16 113/59 100 05/25/17 13:10 72 15 99 35 05/25/17 12:02 73 05/25/17 11:21 98.1 75 16 131/64 100 05/25/17 11:10 73 13 100 35 05/25/17 10:04 79 117/63 05/25/17 09:05 84 16 100 35 05/25/17 08:12 74 05/25/17 08:02 35 05/25/17 07:36 97.6 75 17 122/63 99 05/25/17 07:30 85 05/25/17 07:30 87 18 05/25/17 07:10 72 13 100 35 05/25/17 07:10 72 13 100 35 05/25/17 07:00 86 05/25/17 06:30 86 05/25/17 06:00 87 05/25/17 05:30 83 05/25/17 05:15 77 12 100 35 05/25/17 05:00 85 05/25/17 04:30 80 18 05/25/17 04:30 80 05/25/17 04:07 75 05/25/17 04:05 98.3 74 15 126/73 98 05/25/17 03:04 77 12 100 35 05/25/17 01:02 74 12 100 35 05/25/17 00:06 69 05/25/17 00:00 97.5 72 20 144/69 100 05/24/17 22:30 72 14 100 35 05/24/17 21:30 72 15 100 35 Vital Signs Date Time Temp Pulse Resp B/P Pulse Ox O2 Delivery O2 Flow Rate FiO2 05/27/17 20:20 80 05/27/17 17:02 17 100 35 05/27/17 15:43 98.4 124/64 Intake and Output 05/26/17 05/26/17 05/27/17 15:00 23:00 07:00 Intake Total 500 ml 1160 ml 860 ml Output Total 3500 ml 200 ml 400 ml Balance -3000 ml 960 ml 460 ml Exam Constitutional: alert, frail, non-verbal Neck: other ((+) trach) Respiratory: clear to auscultation, normal air movement Cardiovascular: edema (diffuse anasarca), murmurs/extra sounds, nl pulses, regular rate and rhythm, systolic murmur (3+), No rub Gastrointestinal: bowel sounds, nl liver, spleen, non-tender, soft, No mass, No rebound or guarding Musculoskeletal: nl extremities to inspection Extremities: edema (diffuse anasarca), normal pulses, No clubbing, No cyanosis Neurological: STENCIL C[employer] MACHINE II-XII intact, other (looks at examiner but no other response ) Additional Comments Bedside Glucose - 72 Hours Test 05/25/17 00:18 05/25/17 06:44 05/25/17 11:47 05/25/17 17:34 Bedside Glucose 117mg/dL (70-220) 133mg/dL (70-220) 160mg/dL (70-220) 165mg/dL (70-220) Test 05/26/17 00:09 05/26/17 06:43 05/26/17 12:36 05/26/17 17:31 Bedside Glucose 154mg/dL (70-220) 156mg/dL (70-220) 170mg/dL (70-220) 163mg/dL (70-220) Test 05/27/17 00:22 05/27/17 06:01 05/27/17 12:11 05/27/17 17:23 Bedside Glucose 189mg/dL (70-220) 164mg/dL (70-220) 160mg/dL (70-220) 171mg/dL (70-220) Results Result Diagram: 05/27/17 1019 05/27/17 1019 Results 24 hrs Laboratory Tests Test 05/27/17 00:22 05/27/17 06:01 05/27/17 10:18 05/27/17 10:19 Bedside Glucose 189 164 Free Thyroxine Index 1.83 Thyroxine (T4) 4.6 L Triiodothyronine (T3) Uptake 39.8 White Blood Count 12.6 #H Red Blood Count 3.30 #L Hemoglobin 10.3 #L Hematocrit 30.8 #L Mean Corpuscular Volume 93.3 Mean Corpuscular Hemoglobin 31.2 Mean Corpuscular Hemoglobin Concent 33.4 Red Cell Distribution Width 22.4 H Platelet Count 155 Mean Platelet Volume 10.9 H Neutrophils % 75.8 Lymphocytes % 8.5 L Monocytes % 11.0 Eosinophils % 0.7 Basophils % 0.3 Nucleated Red Blood Cells % 0.0 Neutrophils # (Manual) 9.5 H Lymphocytes # 1.1 Monocytes # 1.4 H Eosinophils # 0.1 Basophils # 0.0 Nucleated Red Blood Cells # 0.0 Sodium Level 140 Potassium Level 3.9 Chloride Level 98 Carbon Dioxide Level 30 Anion Gap 16 Blood Urea Nitrogen 76 H Creatinine 1.59 H Glucose Level 142 Calcium Level 8.7 Phosphorus Level 3.1 Magnesium Level 2.7 H Test 05/27/17 12:11 05/27/17 17:23 Bedside Glucose 160 171 Medications Medications Current Medications Metoprolol Tartrate (Lopressor) 5 mg Q4H PRN IV HR>110 Hold SBP<110 Last administered on 04/20/17 17:36; Admin Dose 5 MG; Start 04/11/17 at 13:30 Miscellaneous Information 1 ea NOTE XX ; Start 04/11/17 at 16:30 Glucose (Glutose) 15 gm Q15M PRN PO DECREASED GLUCOSE Last administered on 05/07 03:27; Admin Dose 15 GM; Start 04/11/17 at 16:30 Glucose (Glutose) 22.5 gm Q15M PRN PO DECREASED GLUCOSE; Start 04/11/17 at 16: 30 Dextrose (D50w Syringe) 25 ml Q15M PRN IV DECREASED GLUCOSE Last administered on 04/12/17 23:56; Admin Dose 25 ML; Start 04/11/17 at 16:30 Dextrose (D50w Syringe) 50 ml Q15M PRN IV DECREASED GLUCOSE; Start 04/11/17 at 16:30 Glucagon (Glucagen) 1 mg Q15M PRN IM DECREASED GLUCOSE; Start 04/11/17 at 16:30 Glucose (Glutose) 15 gm Q15M PRN BUCCAL DECREASED GLUCOSE; Start 04/11/17 at 16 :30 Metoclopramide HCl (Reglan) 10 mg Q6 IV Last administered on 05/27/17 17:25; Admin Dose 10 MG; Start 04/12/17 at 18:00 Insulin Aspart (Novolog Insulin Pen) NOVOLOG *MILD* ALGORI... Q6H SC Last administered on 05/27/17 17:40; Admin Dose 1 UNIT; Start 04/15/17 at 00:00 IV Flush (NS 10 ml) 10 ml PRN PRN IV FLUSH LINE; Start 04/15/17 at 13:00 Amiodarone HCl (Cordarone) 200 mg BID GTB Last administered on 05/27/17 20:36 ; Admin Dose 200 MG; Start 04/16/17 at 13:00 Heparin Sodium (Porcine) (Heparin (5000 Units/0.5 ml)) 5,000 unit BID SC Last administered on 04/30/17 21:03; Admin Dose 5,000 UNIT; Start 04/18/17 at 16:22; Status Future Hold Citalopram Hydrobromide (Celexa) 20 mg DAILY NGT Last administered on 09:08; Admin Dose 20 MG; Start 04/19/17 at 09:00 Hydralazine HCl (Apresoline) 20 mg Q6H PRN IV sbp ABOVE 160 Last administered on 05/22/17 19:59; Admin Dose 20 MG; Start 04/18/17 at 18:30 Chlorhexidine Gluconate (Peridex) 15 ml BID MT Last administered on 05/27/17 20:36; Admin Dose 15 ML; Start 04/22/17 at 21:00 Vitamin A/Vitamin D (Vitamin A & D Oint) 1 applic TID TOP Last administered on 05/27/17 20:55; Admin Dose 1 APPLIC; Start 04/22/17 at 21:00 Vitamin A/Vitamin D (Vitamin A & D Oint) 1 applic TID PRN TOP DRYNESS Last administered on 04/22/17 15:29; Admin Dose 1 APPLIC; Start 04/22/17 at 15:00 Acetaminophen/ Hydrocodone Bitart ([place] (5/325)) 1 tab Q6H GTB Last administered on 05/27/17 20:37; Admin Dose 1 TAB; Start 04/22/17 at 21:30 Spironolactone (Aldactone) 25 mg DAILY NGT Last administered on 05/27/17 09:08 ; Admin Dose 25 MG; Start 04/25/17 at 19:00; Status Future hold Diltiazem HCl 5 mg 5 mg Q1H PRN IV HEART RATE GREATER THAN 120 Last administered on 04/29/17 06:17; Admin Dose 5 MG; Start 04/29/17 at 05:00 Sodium Chloride 1,000 ml @ 0 mls/hr Q0M IV Last administered on 05/01/17 03: 00; Admin Dose 1,000 MLS/HR; Start 05/01/17 at 03:00 Sodium Chloride 1,000 ml @ 0 mls/hr Q0M IV Last administered on 05/01/17 04: 00; Admin Dose 1,000 MLS/HR; Start 05/01/17 at 03:30 Diltiazem HCl (Cardizem-D5W 125 Mg/125 ml Drip) 125 ml @ 5 mls/hr TITRATE IV Last administered on 05/02/17 19:11; Admin Dose 5 MLS/HR; Start 05/02/17 at 19: 00 Metoprolol Tartrate (Lopressor) 25 mg QID GTB Last administered on 05/27/17 20 :35; Admin Dose 25 MG; Start 05/07/17 at 09:00 Furosemide (Lasix) 40 mg Q12 IV Last administered on 05/27/17 20:36; Admin Dose 40 MG; Start 05/08/17 at 09:00 Vitamin B Complex/ Vitamin C (Berocca) 1 cap DAILY PO Last administered on 05/27 09:08; Admin Dose 1 CAP; Start 05/13/17 at 09:00 Nystatin (Nystatin Susp) 5 ml QID PO Last administered on 05/27/17 20:36; Admin Dose 5 ML; Start 05/12/17 at 17:00 Aspirin (Aspirin) 81 mg DAILY NGT Last administered on 05/27/17 09:08; Admin Dose 81 MG; Start 05/19/17 at 09:00 Lansoprazole (Prevacid) 30 mg BID@06,18 GTB Last administered on 05/27/17 17: 24; Admin Dose 30 MG; Start 05/20/17 at 18:00 Multivitamins (Multivitamin) 30 ml DAILY GTB Last administered on 05/27/17 09: 07; Admin Dose 30 ML; Start 05/24/17 at 09:00 Hydrocortisone (Solu-Cortef) 15 mg TID IV Last administered on 05/27/17 20:36 ; Admin Dose 15 MG; Start 05/26/17 at 21:00 Metolazone (Zaroxolyn) 5 mg DAILY PEG Last administered on 8/15/17at 16:36; Admin Dose 5 MG; Start 05/27/17 at 11:00 JEAN CISNEROS MD May 27, 2017 21:17
[2017-05-28] VITALS (21 sets, daily range): BP systolic 117–133; BP diastolic 55–73; PULSE 60–75; RESP 10–20
[2017-05-28] MEDS: LEVALBUTEROL (HFA) 15 GM INHALER INH SCH ×4 (01:25→19:43)
[2017-05-28] MEDS: HYDROCODONE/APAP (5/325) TAB GTB SCH ×4 (04:44→21:06)
[2017-05-28] MEDS: LANSOPRAZOLE 30 MG CAP GTB SCH ×2 (06:07→18:17)
[2017-05-28] MEDS: METOCLOPRAMIDE 10 MG INJ IV SCH ×3 (06:07→18:17)
[2017-05-28] MEDS: LEVOTHYROXINE 100 MCG TAB GTB SCH (06:08)
[2017-05-28] MEDS: INSULIN ASPART [NOVOLOG] 3 ML PEN SC SCH ×3 (06:10→18:19)
[2017-05-28 08:38] LABS: BASOPHILS % 0.3 % (0.0-2.0); EOSINOPHILS # 0.1 10^3/ul (0.0-0.5); EOSINOPHILS % 1.1 % (0.0-7.0); HEMATOCRIT 26.2 % (37.0-47.0); HEMOGLOBIN 8.7 g/dl (12.0-16.0); LYMPHOCYTES # 1.1 10^3/ul (0.8-2.9); LYMPHOCYTES % 10.6 % (15.0-51.0); MEAN CORPUSCULAR HEMOGLOBIN 31.3 pg (29.0-33.0); MEAN CORPUSCULAR HGB CONC 33.2 g/dl (32.0-37.0); MEAN CORPUSCULAR VOLUME 94.2 fl (82.0-101.0); MONOCYTES % 10.1 % (0.0-11.0); NEUTROPHILS % 73.8 % (39.0-77.0); PLATELET COUNT 138 10^3/UL (140-415); RED BLOOD COUNT 2.78 10^6/ul (4.20-5.40); RED CELL DISTRIBUTION WIDTH 21.9 % (11.5-14.5); WHITE BLOOD COUNT 10.1 10^3/ul (4.8-10.8)
[2017-05-28] MEDS: CITALOPRAM 20 MG TAB NGT SCH (08:47)
[2017-05-28] MEDS: SPIRONOLACTONE 25 MG TAB NGT SCH (08:47)
[2017-05-28] MEDS: ASPIRIN 81 MG TAB NGT SCH (08:47)
[2017-05-28] MEDS: MULTIVITAMINS 30 ML CUP GTB SCH (08:47)
[2017-05-28] MEDS: VITAMIN B COMPLEX/VIT C CAP PO SCH (08:47)
[2017-05-28] MEDS: CHLORHEXIDINE GLUCONATE 15 ML UD CUP MT SCH ×2 (08:49→21:01)
[2017-05-28] MEDS: VITAMIN A & D 5 GM OINT PACKET TOP SCH ×3 (08:49→21:02)
[2017-05-28] MEDS: METOPROLOL 25 MG TAB GTB SCH ×4 (08:50→21:11)
[2017-05-28] MEDS: HYDROCORTISONE 100 MG INJ IV SCH ×2 (08:51→12:10)
[2017-05-28] MEDS: AMIODARONE 200 MG TAB GTB SCH ×2 (08:51→21:11)
[2017-05-28] MEDS: FUROSEMIDE 40 MG INJ IV SCH ×2 (08:52→21:10)
[2017-05-28] MEDS: NYSTATIN SUSP 5 ML CUP PO SCH ×4 (08:53→21:01)
--- NOTE | 2017-05-28 08:57 | CONS ---
Date/Time of Note Date/Time of Note DATE: 05/28/17 TIME: 08:56 Consult Date/Type/Reason Admit Date/Time Apr 11, 2017 at 11:28 Initial Consult Date 04/12/17 Type of Consultation: CARDIOLOGY Ordering Provider: NINA MACIEL DO Subjective CARDIOLOGY FOLLOW UP NOTE: D/W D/W staff and rhythm was reviewed. pt remains in NSR. no afib overnight no chest pain or pressure or palpitations. pt still s/p trach on vent on tele. s/p transfusion on 05/14/17 and getting transfused again 05/26/17 Objective: General: s/p trach on vent HEENT: NC/AT. . oropharynx with multiple lesions. . NECK: NO JVD. no stridor. s/p trach on vent CV: RRR. systolic ejection murmur; no gallop or rubs. PULM: + mild rhonchi. no wheezes. GI: SOFT, NT, ND, no rebound or guarding s/p PEG Extremity: 1-2+ B/L LE edema. no clubbing. neuro: sleeping comfortably Psych: calm rectal: deferred Derm: multiple echymosis : S/P mims catheter in place Objective Vital Signs Date Time Temp Pulse Resp B/P Pulse Ox O2 Delivery O2 Flow Rate FiO2 05/28/17 08:31 68 05/28/17 07:39 98.6 19 117/55 100 05/28/17 07:31 35 Intake and Output 05/27/17 05/27/17 05/28/17 15:00 23:00 07:00 Intake Total 300 ml 960 ml 760 ml Output Total 300 ml 900 ml 350 ml Balance 0 ml 60 ml 410 ml Results/Medications Result Diagram: 05/28/17 0708 05/27/17 1019 Results 24 hrs Laboratory Tests Test 05/27/17 10:18 05/27/17 10:19 05/27/17 12:11 05/27/17 17:23 Free Thyroxine Index 1.83 Thyroxine (T4) 4.6 L Triiodothyronine (T3) Uptake 39.8 White Blood Count 12.6 #H Red Blood Count 3.30 #L Hemoglobin 10.3 #L Hematocrit 30.8 #L Mean Corpuscular Volume 93.3 Mean Corpuscular Hemoglobin 31.2 Mean Corpuscular Hemoglobin Concent 33.4 Red Cell Distribution Width 22.4 H Platelet Count 155 Mean Platelet Volume 10.9 H Neutrophils % 75.8 Lymphocytes % 8.5 L Monocytes % 11.0 Eosinophils % 0.7 Basophils % 0.3 Nucleated Red Blood Cells % 0.0 Neutrophils # (Manual) 9.5 H Lymphocytes # 1.1 Monocytes # 1.4 H Eosinophils # 0.1 Basophils # 0.0 Nucleated Red Blood Cells # 0.0 Sodium Level 140 Potassium Level 3.9 Chloride Level 98 Carbon Dioxide Level 30 Anion Gap 16 Blood Urea Nitrogen 76 H Creatinine 1.59 H Glucose Level 142 Calcium Level 8.7 Phosphorus Level 3.1 Magnesium Level 2.7 H Bedside Glucose 160 171 Test 05/27/17 23:56 05/28/17 06:08 05/28/17 07:08 Bedside Glucose 168 143 White Blood Count 10.1 Red Blood Count 2.78 L Hemoglobin 8.7 L Hematocrit 26.2 L Mean Corpuscular Volume 94.2 Mean Corpuscular Hemoglobin 31.3 Mean Corpuscular Hemoglobin Concent 33.2 Red Cell Distribution Width 21.9 H Platelet Count 138 L Mean Platelet Volume 11.0 H Neutrophils % 73.8 Lymphocytes % 10.6 L Monocytes % 10.1 Eosinophils % 1.1 Basophils % 0.3 Nucleated Red Blood Cells % 0.0 Neutrophils # (Manual) 7.5 Lymphocytes # 1.1 Monocytes # 1.0 H Eosinophils # 0.1 Basophils # 0.0 Nucleated Red Blood Cells # 0.0 Medications Current Medications Metoprolol Tartrate (Lopressor) 5 mg Q4H PRN IV HR>110 Hold SBP<110 Last administered on 04/20/17 17:36; Admin Dose 5 MG; Start 04/11/17 at 13:30 Miscellaneous Information 1 ea NOTE XX ; Start 04/11/17 at 16:30 Glucose (Glutose) 15 gm Q15M PRN PO DECREASED GLUCOSE Last administered on 05/07 03:27; Admin Dose 15 GM; Start 04/11/17 at 16:30 Glucose (Glutose) 22.5 gm Q15M PRN PO DECREASED GLUCOSE; Start 04/11/17 at 16: 30 Dextrose (D50w Syringe) 25 ml Q15M PRN IV DECREASED GLUCOSE Last administered on 04/12/17 23:56; Admin Dose 25 ML; Start 04/11/17 at 16:30 Dextrose (D50w Syringe) 50 ml Q15M PRN IV DECREASED GLUCOSE; Start 04/11/17 at 16:30 Glucagon (Glucagen) 1 mg Q15M PRN IM DECREASED GLUCOSE; Start 04/11/17 at 16:30 Glucose (Glutose) 15 gm Q15M PRN BUCCAL DECREASED GLUCOSE; Start 04/11/17 at 16 :30 Metoclopramide HCl (Reglan) 10 mg Q6 IV Last administered on 05/28/17 06:07; Admin Dose 10 MG; Start 04/12/17 at 18:00 Insulin Aspart (Novolog Insulin Pen) NOVOLOG *MILD* ALGORI... Q6H SC Last administered on 05/28/17 06:10; Admin Dose 1 UNIT; Start 04/15/17 at 00:00 IV Flush (NS 10 ml) 10 ml PRN PRN IV FLUSH LINE; Start 04/15/17 at 13:00 Amiodarone HCl (Cordarone) 200 mg BID GTB Last administered on 05/27/17 20:36 ; Admin Dose 200 MG; Start 04/16/17 at 13:00 Heparin Sodium (Porcine) (Heparin (5000 Units/0.5 ml)) 5,000 unit BID SC Last administered on 04/30/17 21:03; Admin Dose 5,000 UNIT; Start 04/18/17 at 16:22; Status Future Hold Citalopram Hydrobromide (Celexa) 20 mg DAILY NGT Last administered on 09:08; Admin Dose 20 MG; Start 04/19/17 at 09:00 Hydralazine HCl (Apresoline) 20 mg Q6H PRN IV sbp ABOVE 160 Last administered on 05/22/17 19:59; Admin Dose 20 MG; Start 04/18/17 at 18:30 Chlorhexidine Gluconate (Peridex) 15 ml BID MT Last administered on 05/27/17 20:36; Admin Dose 15 ML; Start 04/22/17 at 21:00 Vitamin A/Vitamin D (Vitamin A & D Oint) 1 applic TID TOP Last administered on 05/27/17 20:55; Admin Dose 1 APPLIC; Start 04/22/17 at 21:00 Vitamin A/Vitamin D (Vitamin A & D Oint) 1 applic TID PRN TOP DRYNESS Last administered on 04/22/17 15:29; Admin Dose 1 APPLIC; Start 04/22/17 at 15:00 Acetaminophen/ Hydrocodone Bitart ([place] (5/325)) 1 tab Q6H GTB Last administered on 05/28/17 04:44; Admin Dose 1 TAB; Start 04/22/17 at 21:30 Spironolactone (Aldactone) 25 mg DAILY NGT Last administered on 05/27/17 09:08 ; Admin Dose 25 MG; Start 04/25/17 at 19:00; Status Future hold Diltiazem HCl 5 mg 5 mg Q1H PRN IV HEART RATE GREATER THAN 120 Last administered on 04/29/17 06:17; Admin Dose 5 MG; Start 04/29/17 at 05:00 Sodium Chloride 1,000 ml @ 0 mls/hr Q0M IV Last administered on 05/01/17 03: 00; Admin Dose 1,000 MLS/HR; Start 05/01/17 at 03:00 Sodium Chloride 1,000 ml @ 0 mls/hr Q0M IV Last administered on 05/01/17 04: 00; Admin Dose 1,000 MLS/HR; Start 05/01/17 at 03:30 Diltiazem HCl (Cardizem-D5W 125 Mg/125 ml Drip) 125 ml @ 5 mls/hr TITRATE IV Last administered on 05/02/17 19:11; Admin Dose 5 MLS/HR; Start 05/02/17 at 19: 00 Metoprolol Tartrate (Lopressor) 25 mg QID GTB Last administered on 05/27/17 20 :35; Admin Dose 25 MG; Start 05/07/17 at 09:00 Furosemide (Lasix) 40 mg Q12 IV Last administered on 05/27/17 20:36; Admin Dose 40 MG; Start 05/08/17 at 09:00 Vitamin B Complex/ Vitamin C (Berocca) 1 cap DAILY PO Last administered on 05/27 09:08; Admin Dose 1 CAP; Start 05/13/17 at 09:00 Nystatin (Nystatin Susp) 5 ml QID PO Last administered on 05/27/17 20:36; Admin Dose 5 ML; Start 05/12/17 at 17:00 Aspirin (Aspirin) 81 mg DAILY NGT Last administered on 05/27/17 09:08; Admin Dose 81 MG; Start 05/19/17 at 09:00 Lansoprazole (Prevacid) 30 mg BID@06,18 GTB Last administered on 05/28/17 06: 07; Admin Dose 30 MG; Start 05/20/17 at 18:00 Multivitamins (Multivitamin) 30 ml DAILY GTB Last administered on 05/27/17 09: 07; Admin Dose 30 ML; Start 05/24/17 at 09:00 Hydrocortisone (Solu-Cortef) 15 mg TID IV Last administered on 05/27/17 20:36 ; Admin Dose 15 MG; Start 05/26/17 at 21:00 Metolazone (Zaroxolyn) 5 mg DAILY PEG Last administered on 05/27/17 16:36; Admin Dose 5 MG; Start 05/27/17 at 11:00 Assessment/Plan Chief Complaint/Hosp Course 1. acute on chronic hypoxemic respiratory failure: 2. S/P NSTEMI: due to demand ischemia. 3. CHF/ fluid overload: due to diastolic heart failure 4. moderate 5. Arrhythmia and P afib, frequent PVC: currently in NSR. 6. ANEMIA: s/p multiple transfusion 7. s/p pneumonia, . 8. s/p sepsis and shock: BP is stable now. 9. Anasarca 10. s/p cardiopulm arrest due to resp failure 11. renal failure 12. coagulopathy Rec: cont resp care as per PULM Team. correct lytes prn. CONT betablocker as tolerated. . cont thyroid supplement . cont tele monitoring HD/ ultrafiltration will be deferred to renal. is awaiting HD access. transfuse prn cont low dose ASA 81 mg only due to recurrent anemia. THANK YOU. Problems: FRANCISCO BLACKWOOD MD May 28, 2017 08:57
[2017-05-28] MEDS: METOLAZONE 5 MG TAB PEG SCH ×2 (09:00→12:10)
[2017-05-28 09:13] LABS: CALCIUM 8.2 mg/dl (8.4-10.2); CREATININE 1.83 mg/dl (0.44-1.00); MAGNESIUM 2.6 mg/dl (1.7-2.5); PHOSPHORUS 3.1 mg/dl (2.5-4.9); POTASSIUM 3.7 mmol/L (3.5-5.1)
--- NOTE | 2017-05-28 10:50 | PN ---
Date/Time of Note Date/Time of Note DATE: 05/28/17 TIME: 10:47 Assessment/Plan VTE Prophylaxis VTE Prophylaxis Intervention: other Lines/Catheters IV Catheter Type (from Nrsg): Amrit Central line still needed: Yes Urinary Cath still in place: Yes Reason Cath still needed: urinary retention Assessment/Plan Chief Complaint/Hosp Course 1. Ventilator-dependent respiratory failure. Vent settings reviewed. ABGs reviewed. Continue to monitor. Follow up with Pulmonary. there is possible foreign body aspiration. Further imaging studies are pending 2. History of thyroid cancer with tracheomalacia. The patient is status post trach. Has been evaluated by ENT. Continue to monitor. 3. Nonoliguric acute kidney injury on top of chronic kidney disease. she has good uop and her access is not working well. will hold HD. continue diuretics. 4. Volume overload secondary to acute kidney injury and CHF. 5. Sepsis, status post shock secondary to aspiration pneumonia. The patient is completing antibiotic course. 6. Adrenal insufficiency. Continue current steroid regimen. 7. Acute encephalopathy, etiology is toxic metabolic, uremic, improving. Continue dialysis. Continue supportive care. 8. Hypothyroidism. Continue Synthroid. 9. Hyponatremia, improving. Continue dialysis. 10. Anemia. Monitor H and H levels. 11. Congestive heart failure. Continue medical management. 12. Left upper extremity deep vein thrombosis. The patient's anticoagulation is on hold secondary to recent gastrointestinal bleed. 13. Dysphagia, status post tube feeding. 14. Status post GI bleed. 15. Gastrointestinal and deep venous thrombosis prophylaxis. Subjective 24 Hr Interval Summary Free Text/Dictation SUBJECTIVE DATA: no new events noted. no nausea, vomiting, new rash, hematuria, melena, tachypnea trach in place vent settings and cardiac strips were reviewed has a temp line in place for HD which has poor blood flow d/w at the bedside extensively OBJECTIVE DATA: HEENT: Head is normocephalic. NECK: Supple. HEART: Regular rate. LUNGS: Diminished breath sounds at the base. ABDOMEN: Soft, nontender to palpation. No rebound or guarding. EXTREMITIES: Negative for clubbing, cyanosis. Positive edema. DERMATOLOGIC: No rashes. MUSCULOSKELETAL: No joint effusion. NEUROLOGIC: Unchanged exam. MEDICATIONS: Reviewed. LABORATORY AND DIAGNOSTIC DATA: Reviewed. Problems: Exam/Review of Systems Vital Signs Vitals Vital Signs Date Time Temp Pulse Resp B/P Pulse Ox O2 Delivery O2 Flow Rate FiO2 05/28/17 09:13 70 12 100 35 05/28/17 07:39 98.6 117/55 Intake and Output 05/27/17 05/27/17 05/28/17 15:00 23:00 07:00 Intake Total 300 ml 960 ml 760 ml Output Total 300 ml 900 ml 350 ml Balance 0 ml 60 ml 410 ml Results Result Diagram: 05/28/17 0708 05/28/17 0708 Results 24 hrs Laboratory Tests Test 05/27/17 12:11 05/27/17 17:23 05/27/17 23:56 05/28/17 06:08 Bedside Glucose 160 171 168 143 Test 05/28/17 07:08 White Blood Count 10.1 Red Blood Count 2.78 L Hemoglobin 8.7 L Hematocrit 26.2 L Mean Corpuscular Volume 94.2 Mean Corpuscular Hemoglobin 31.3 Mean Corpuscular Hemoglobin Concent 33.2 Red Cell Distribution Width 21.9 H Platelet Count 138 L Mean Platelet Volume 11.0 H Neutrophils % 73.8 Lymphocytes % 10.6 L Monocytes % 10.1 Eosinophils % 1.1 Basophils % 0.3 Nucleated Red Blood Cells % 0.0 Neutrophils # (Manual) 7.5 Lymphocytes # 1.1 Monocytes # 1.0 H Eosinophils # 0.1 Basophils # 0.0 Nucleated Red Blood Cells # 0.0 Sodium Level 134 L Potassium Level 3.7 Chloride Level 99 Carbon Dioxide Level 29 Anion Gap 10 # Blood Urea Nitrogen 86 H Creatinine 1.83 H Glucose Level 131 Calcium Level 8.2 L Phosphorus Level 3.1 Magnesium Level 2.6 H Medications Medications Current Medications Metoprolol Tartrate (Lopressor) 5 mg Q4H PRN IV HR>110 Hold SBP<110 Last administered on 04/20/17 17:36; Admin Dose 5 MG; Start 04/11/17 at 13:30 Miscellaneous Information 1 ea NOTE XX ; Start 04/11/17 at 16:30 Glucose (Glutose) 15 gm Q15M PRN PO DECREASED GLUCOSE Last administered on 05/07 03:27; Admin Dose 15 GM; Start 04/11/17 at 16:30 Glucose (Glutose) 22.5 gm Q15M PRN PO DECREASED GLUCOSE; Start 04/11/17 at 16: 30 Dextrose (D50w Syringe) 25 ml Q15M PRN IV DECREASED GLUCOSE Last administered on 04/12/17 23:56; Admin Dose 25 ML; Start 04/11/17 at 16:30 Dextrose (D50w Syringe) 50 ml Q15M PRN IV DECREASED GLUCOSE; Start 04/11/17 at 16:30 Glucagon (Glucagen) 1 mg Q15M PRN IM DECREASED GLUCOSE; Start 04/11/17 at 16:30 Glucose (Glutose) 15 gm Q15M PRN BUCCAL DECREASED GLUCOSE; Start 04/11/17 at 16 :30 Metoclopramide HCl (Reglan) 10 mg Q6 IV Last administered on 05/28/17 06:07; Admin Dose 10 MG; Start 04/12/17 at 18:00 Insulin Aspart (Novolog Insulin Pen) NOVOLOG *MILD* ALGORI... Q6H SC Last administered on 05/28/17 06:10; Admin Dose 1 UNIT; Start 04/15/17 at 00:00 IV Flush (NS 10 ml) 10 ml PRN PRN IV FLUSH LINE; Start 04/15/17 at 13:00 Amiodarone HCl (Cordarone) 200 mg BID GTB Last administered on 05/28/17 08:51 ; Admin Dose 200 MG; Start 04/16/17 at 13:00 Heparin Sodium (Porcine) (Heparin (5000 Units/0.5 ml)) 5,000 unit BID SC Last administered on 04/30/17 21:03; Admin Dose 5,000 UNIT; Start 04/18/17 at 16:22; Status Future Hold Citalopram Hydrobromide (Celexa) 20 mg DAILY NGT Last administered on 08:47; Admin Dose 20 MG; Start 04/19/17 at 09:00 Hydralazine HCl (Apresoline) 20 mg Q6H PRN IV sbp ABOVE 160 Last administered on 05/22/17 19:59; Admin Dose 20 MG; Start 04/18/17 at 18:30 Chlorhexidine Gluconate (Peridex) 15 ml BID MT Last administered on 05/28/17 08:49; Admin Dose 15 ML; Start 04/22/17 at 21:00 Vitamin A/Vitamin D (Vitamin A & D Oint) 1 applic TID TOP Last administered on 05/28/17 08:49; Admin Dose 1 APPLIC; Start 04/22/17 at 21:00 Vitamin A/Vitamin D (Vitamin A & D Oint) 1 applic TID PRN TOP DRYNESS Last administered on 04/22/17 15:29; Admin Dose 1 APPLIC; Start 04/22/17 at 15:00 Acetaminophen/ Hydrocodone Bitart ([place] (5/325)) 1 tab Q6H GTB Last administered on 05/28/17 09:56; Admin Dose 1 TAB; Start 04/22/17 at 21:30 Spironolactone (Aldactone) 25 mg DAILY NGT Last administered on 05/28/17 08:47 ; Admin Dose 25 MG; Start 04/25/17 at 19:00; Status Future hold Diltiazem HCl 5 mg 5 mg Q1H PRN IV HEART RATE GREATER THAN 120 Last administered on 04/29/17 06:17; Admin Dose 5 MG; Start 04/29/17 at 05:00 Sodium Chloride 1,000 ml @ 0 mls/hr Q0M IV Last administered on 05/01/17 03: 00; Admin Dose 1,000 MLS/HR; Start 05/01/17 at 03:00 Sodium Chloride 1,000 ml @ 0 mls/hr Q0M IV Last administered on 05/01/17 04: 00; Admin Dose 1,000 MLS/HR; Start 05/01/17 at 03:30 Diltiazem HCl (Cardizem-D5W 125 Mg/125 ml Drip) 125 ml @ 5 mls/hr TITRATE IV Last administered on 05/02/17 19:11; Admin Dose 5 MLS/HR; Start 05/02/17 at 19: 00 Metoprolol Tartrate (Lopressor) 25 mg QID GTB Last administered on 05/28/17 08 :50; Admin Dose 25 MG; Start 05/07/17 at 09:00 Furosemide (Lasix) 40 mg Q12 IV Last administered on 05/28/17 08:52; Admin Dose 40 MG; Start 05/08/17 at 09:00 Vitamin B Complex/ Vitamin C (Berocca) 1 cap DAILY PO Last administered on 05/28 08:47; Admin Dose 1 CAP; Start 05/13/17 at 09:00 Nystatin (Nystatin Susp) 5 ml QID PO Last administered on 05/28/17 08:53; Admin Dose 5 ML; Start 05/12/17 at 17:00 Aspirin (Aspirin) 81 mg DAILY NGT Last administered on 05/28/17 08:47; Admin Dose 81 MG; Start 05/19/17 at 09:00 Lansoprazole (Prevacid) 30 mg BID@06,18 GTB Last administered on 05/28/17 06: 07; Admin Dose 30 MG; Start 05/20/17 at 18:00 Multivitamins (Multivitamin) 30 ml DAILY GTB Last administered on 05/28/17 08: 47; Admin Dose 30 ML; Start 05/24/17 at 09:00 Hydrocortisone (Solu-Cortef) 15 mg TID IV Last administered on 05/28/17 08:51 ; Admin Dose 15 MG; Start 05/26/17 at 21:00 Metolazone (Zaroxolyn) 5 mg DAILY PEG Last administered on 05/27/17 16:36; Admin Dose 5 MG; Start 05/27/17 at 11:00 DERECK QUINTERO DO May 28, 2017 10:50
--- NOTE | 2017-05-28 12:30 | CONS ---
Date/Time of Note Date/Time of Note DATE: 05/28/17 TIME: 12:28 Consult Date/Type/Reason Admit Date/Time Apr 11, 2017 at 11:28 Initial Consult Date 04/12/17 Type of Consultation: pulm Ordering Provider: NINA MACIEL DO Subjective remains stable, discussed with , missing tooth concerning for possible aspiration, Objective Vital Signs Date Time Temp Pulse Resp B/P Pulse Ox O2 Delivery O2 Flow Rate FiO2 05/28/17 11:23 72 10 100 35 05/28/17 11:20 98.2 125/65 Intake and Output 05/27/17 05/27/17 05/28/17 15:00 23:00 07:00 Intake Total 300 ml 960 ml 760 ml Output Total 300 ml 900 ml 350 ml Balance 0 ml 60 ml 410 ml Exam PHYSICAL EXAMINATION GENERAL: Elderly lady on mechanical ventilation via tracheostomy VITAL SIGNS: see below. HEENT: Pupils equal, round, and reactive to light. Tracheostomy site clean and intact. CARDIAC: S1, S2, 1/6 systolic ejection murmur CHEST: Diminished air entry bilaterally. ABDOMEN: Mildly distended. Bowel sounds present no guarding or rebound EXTREMITIES: No cyanosis, clubbing edema +1 NEUROLOGIC: Generalized weakness Results/Medications Result Diagram: 05/28/17 0708 05/28/17 0708 Results 24 hrs Laboratory Tests Test 05/27/17 17:23 05/27/17 23:56 05/28/17 06:08 05/28/17 07:08 Bedside Glucose 171 168 143 White Blood Count 10.1 Red Blood Count 2.78 L Hemoglobin 8.7 L Hematocrit 26.2 L Mean Corpuscular Volume 94.2 Mean Corpuscular Hemoglobin 31.3 Mean Corpuscular Hemoglobin Concent 33.2 Red Cell Distribution Width 21.9 H Platelet Count 138 L Mean Platelet Volume 11.0 H Neutrophils % 73.8 Lymphocytes % 10.6 L Monocytes % 10.1 Eosinophils % 1.1 Basophils % 0.3 Nucleated Red Blood Cells % 0.0 Neutrophils # (Manual) 7.5 Lymphocytes # 1.1 Monocytes # 1.0 H Eosinophils # 0.1 Basophils # 0.0 Nucleated Red Blood Cells # 0.0 Sodium Level 134 L Potassium Level 3.7 Chloride Level 99 Carbon Dioxide Level 29 Anion Gap 10 # Blood Urea Nitrogen 86 H Creatinine 1.83 H Glucose Level 131 Calcium Level 8.2 L Phosphorus Level 3.1 Magnesium Level 2.6 H Test 05/28/17 12:01 Bedside Glucose 154 Medications Current Medications Metoprolol Tartrate (Lopressor) 5 mg Q4H PRN IV HR>110 Hold SBP<110 Last administered on 04/20/17 17:36; Admin Dose 5 MG; Start 04/11/17 at 13:30 Miscellaneous Information 1 ea NOTE XX ; Start 04/11/17 at 16:30 Glucose (Glutose) 15 gm Q15M PRN PO DECREASED GLUCOSE Last administered on 05/07 03:27; Admin Dose 15 GM; Start 04/11/17 at 16:30 Glucose (Glutose) 22.5 gm Q15M PRN PO DECREASED GLUCOSE; Start 04/11/17 at 16: 30 Dextrose (D50w Syringe) 25 ml Q15M PRN IV DECREASED GLUCOSE Last administered on 04/12/17 23:56; Admin Dose 25 ML; Start 04/11/17 at 16:30 Dextrose (D50w Syringe) 50 ml Q15M PRN IV DECREASED GLUCOSE; Start 04/11/17 at 16:30 Glucagon (Glucagen) 1 mg Q15M PRN IM DECREASED GLUCOSE; Start 04/11/17 at 16:30 Glucose (Glutose) 15 gm Q15M PRN BUCCAL DECREASED GLUCOSE; Start 04/11/17 at 16 :30 Metoclopramide HCl (Reglan) 10 mg Q6 IV Last administered on 05/28/17 12:02; Admin Dose 10 MG; Start 04/12/17 at 18:00 Insulin Aspart (Novolog Insulin Pen) NOVOLOG *MILD* ALGORI... Q6H SC Last administered on 05/28/17 12:03; Admin Dose 1 UNIT; Start 04/15/17 at 00:00 IV Flush (NS 10 ml) 10 ml PRN PRN IV FLUSH LINE; Start 04/15/17 at 13:00 Amiodarone HCl (Cordarone) 200 mg BID GTB Last administered on 05/28/17 08:51 ; Admin Dose 200 MG; Start 04/16/17 at 13:00 Heparin Sodium (Porcine) (Heparin (5000 Units/0.5 ml)) 5,000 unit BID SC Last administered on 04/30/17 21:03; Admin Dose 5,000 UNIT; Start 04/18/17 at 16:22; Status Future Hold Citalopram Hydrobromide (Celexa) 20 mg DAILY NGT Last administered on 08:47; Admin Dose 20 MG; Start 04/19/17 at 09:00 Hydralazine HCl (Apresoline) 20 mg Q6H PRN IV sbp ABOVE 160 Last administered on 05/22/17 19:59; Admin Dose 20 MG; Start 04/18/17 at 18:30 Chlorhexidine Gluconate (Peridex) 15 ml BID MT Last administered on 05/28/17 08:49; Admin Dose 15 ML; Start 04/22/17 at 21:00 Vitamin A/Vitamin D (Vitamin A & D Oint) 1 applic TID TOP Last administered on 05/28/17 12:09; Admin Dose 1 APPLIC; Start 04/22/17 at 21:00 Vitamin A/Vitamin D (Vitamin A & D Oint) 1 applic TID PRN TOP DRYNESS Last administered on 04/22/17 15:29; Admin Dose 1 APPLIC; Start 04/22/17 at 15:00 Acetaminophen/ Hydrocodone Bitart ([place] (5/325)) 1 tab Q6H GTB Last administered on 05/28/17 09:56; Admin Dose 1 TAB; Start 04/22/17 at 21:30 Spironolactone (Aldactone) 25 mg DAILY NGT Last administered on 05/28/17 08:47 ; Admin Dose 25 MG; Start 04/25/17 at 19:00; Status Future hold Diltiazem HCl 5 mg 5 mg Q1H PRN IV HEART RATE GREATER THAN 120 Last administered on 04/29/17 06:17; Admin Dose 5 MG; Start 04/29/17 at 05:00 Sodium Chloride 1,000 ml @ 0 mls/hr Q0M IV Last administered on 05/01/17 03: 00; Admin Dose 1,000 MLS/HR; Start 05/01/17 at 03:00 Sodium Chloride 1,000 ml @ 0 mls/hr Q0M IV Last administered on 05/01/17 04: 00; Admin Dose 1,000 MLS/HR; Start 05/01/17 at 03:30 Diltiazem HCl (Cardizem-D5W 125 Mg/125 ml Drip) 125 ml @ 5 mls/hr TITRATE IV Last administered on 05/02/17 19:11; Admin Dose 5 MLS/HR; Start 05/02/17 at 19: 00 Metoprolol Tartrate (Lopressor) 25 mg QID GTB Last administered on 05/28/17 12 :11; Admin Dose 25 MG; Start 05/07/17 at 09:00 Furosemide (Lasix) 40 mg Q12 IV Last administered on 05/28/17 08:52; Admin Dose 40 MG; Start 05/08/17 at 09:00 Vitamin B Complex/ Vitamin C (Berocca) 1 cap DAILY PO Last administered on 05/28 08:47; Admin Dose 1 CAP; Start 05/13/17 at 09:00 Nystatin (Nystatin Susp) 5 ml QID PO Last administered on 05/28/17 12:09; Admin Dose 5 ML; Start 05/12/17 at 17:00 Aspirin (Aspirin) 81 mg DAILY NGT Last administered on 05/28/17 08:47; Admin Dose 81 MG; Start 05/19/17 at 09:00 Lansoprazole (Prevacid) 30 mg BID@06,18 GTB Last administered on 05/28/17 06: 07; Admin Dose 30 MG; Start 05/20/17 at 18:00 Multivitamins (Multivitamin) 30 ml DAILY GTB Last administered on 05/28/17 08: 47; Admin Dose 30 ML; Start 05/24/17 at 09:00 Hydrocortisone (Solu-Cortef) 15 mg TID IV Last administered on 05/28/17 12:10 ; Admin Dose 15 MG; Start 05/26/17 at 21:00 Metolazone (Zaroxolyn) 5 mg DAILY PEG Last administered on 05/28/17 12:10; Admin Dose 5 MG; Start 05/27/17 at 11:00 Assessment/Plan Chief Complaint/Hosp Course Additional Assessment/Plan IMP: 1. VDRF 3. s/p Hypercapnic Respiratory Failure--likely due to critical illness myopathy/ neuropathy 4. s/p septic shock 5. Demand Ischemia 6. Cholecystitis 7. Encephalopathy toxic metabolic resolving 8. Leukocytosis improved. 9. Hyponatremia and end-stage renal failure 10. Anemia likely multifactorial 11. Aspiration foreign body ? RECS: 1. Vent support, trial of SIMV. hold off further weaning for now. 2. BDs 3. TFs/Free H2O 4. Hemodialysis per nephrology 5. Ct chest. discussed with . May require bronchoscopy Problems: DARWIN CRAWFORD MD, [facility] May 28, 2017 12:30
--- NOTE | 2017-05-28 15:51 | CONS ---
Date/Time of Note Date/Time of Note DATE: 05/28/17 TIME: 15:49 Assessment/Plan Assessment/Plan Chief Complaint/Hosp Course SUBJECTIVE: No acute events overnight. The patient is awake, looks comfortable. No fevers. Denies pain, discomfort. Indwelling: Trach, bag Latif, right femoral Amrit catheter. PHYSICAL EXAMINATION: This is a fragile, chronically ill- appearing, elderly woman who is awake, in no distress. HEENT: Head atraumatic, normocephalic. Sclerae anicteric. Buccal mucosa dry. NECK: Supple. Tracheostomy present. CHEST: Chest rise symmetric. Breath sounds diminished at bases. HEART: S1, S2. ABDOMEN: Soft. Bowel sounds present. EXTREMITIES: Without cyanosis. SKIN: Positive for anasarca. ASSESSMENT: 1. Status post septic shock, urinary tract infection, pneumonia. 2. Aocyb-om-oihiuph respiratory failure. 3. Status post fungemia. 4. Ugkif-pv-gsktxjh kidney disease. 5. History of Clostridium difficile colitis. 6. Left upper extremity deep vein thrombosis. PLAN: The patient remains stable off antibiotics, continue present care, vent support per pulmonary, repeat cx's prn OLIVIA RN Cameron Problems: Consultation Date/Type/Reason Admit Date/Time Apr 11, 2017 at 11:28 Initial Consult Date 04/12/17 Type of Consultation: ID Referring Provider: NINA MACIEL DO Exam/Review of Systems Vital Signs Vitals Vital Signs Date Time Temp Pulse Resp B/P Pulse Ox O2 Delivery O2 Flow Rate FiO2 05/28/17 15:43 65 14 100 35 05/28/17 11:20 98.2 125/65 Intake and Output 05/27/17 05/27/17 05/28/17 15:00 23:00 07:00 Intake Total 300 ml 960 ml 760 ml Output Total 300 ml 900 ml 350 ml Balance 0 ml 60 ml 410 ml Results Result Diagram: 05/28/17 0708 05/28/17 0708 Results 24 hrs Laboratory Tests Test 05/27/17 17:23 05/27/17 23:56 05/28/17 06:08 05/28/17 07:08 Bedside Glucose 171 168 143 White Blood Count 10.1 Red Blood Count 2.78 L Hemoglobin 8.7 L Hematocrit 26.2 L Mean Corpuscular Volume 94.2 Mean Corpuscular Hemoglobin 31.3 Mean Corpuscular Hemoglobin Concent 33.2 Red Cell Distribution Width 21.9 H Platelet Count 138 L Mean Platelet Volume 11.0 H Neutrophils % 73.8 Lymphocytes % 10.6 L Monocytes % 10.1 Eosinophils % 1.1 Basophils % 0.3 Nucleated Red Blood Cells % 0.0 Neutrophils # (Manual) 7.5 Lymphocytes # 1.1 Monocytes # 1.0 H Eosinophils # 0.1 Basophils # 0.0 Nucleated Red Blood Cells # 0.0 Sodium Level 134 L Potassium Level 3.7 Chloride Level 99 Carbon Dioxide Level 29 Anion Gap 10 # Blood Urea Nitrogen 86 H Creatinine 1.83 H Glucose Level 131 Calcium Level 8.2 L Phosphorus Level 3.1 Magnesium Level 2.6 H Test 05/28/17 12:01 Bedside Glucose 154 Medications Medications Current Medications Metoprolol Tartrate (Lopressor) 5 mg Q4H PRN IV HR>110 Hold SBP<110 Last administered on 04/20/17 17:36; Admin Dose 5 MG; Start 04/11/17 at 13:30 Miscellaneous Information 1 ea NOTE XX ; Start 04/11/17 at 16:30 Glucose (Glutose) 15 gm Q15M PRN PO DECREASED GLUCOSE Last administered on 05/07 03:27; Admin Dose 15 GM; Start 04/11/17 at 16:30 Glucose (Glutose) 22.5 gm Q15M PRN PO DECREASED GLUCOSE; Start 04/11/17 at 16: 30 Dextrose (D50w Syringe) 25 ml Q15M PRN IV DECREASED GLUCOSE Last administered on 04/12/17 23:56; Admin Dose 25 ML; Start 04/11/17 at 16:30 Dextrose (D50w Syringe) 50 ml Q15M PRN IV DECREASED GLUCOSE; Start 04/11/17 at 16:30 Glucagon (Glucagen) 1 mg Q15M PRN IM DECREASED GLUCOSE; Start 04/11/17 at 16:30 Glucose (Glutose) 15 gm Q15M PRN BUCCAL DECREASED GLUCOSE; Start 04/11/17 at 16 :30 Metoclopramide HCl (Reglan) 10 mg Q6 IV Last administered on 05/28/17 12:02; Admin Dose 10 MG; Start 04/12/17 at 18:00 Insulin Aspart (Novolog Insulin Pen) NOVOLOG *MILD* ALGORI... Q6H SC Last administered on 05/28/17 12:03; Admin Dose 1 UNIT; Start 04/15/17 at 00:00 IV Flush (NS 10 ml) 10 ml PRN PRN IV FLUSH LINE; Start 04/15/17 at 13:00 Amiodarone HCl (Cordarone) 200 mg BID GTB Last administered on 05/28/17 08:51 ; Admin Dose 200 MG; Start 04/16/17 at 13:00 Heparin Sodium (Porcine) (Heparin (5000 Units/0.5 ml)) 5,000 unit BID SC Last administered on 04/30/17 21:03; Admin Dose 5,000 UNIT; Start 04/18/17 at 16:22; Status Future Hold Citalopram Hydrobromide (Celexa) 20 mg DAILY NGT Last administered on 08:47; Admin Dose 20 MG; Start 04/19/17 at 09:00 Hydralazine HCl (Apresoline) 20 mg Q6H PRN IV sbp ABOVE 160 Last administered on 05/22/17 19:59; Admin Dose 20 MG; Start 04/18/17 at 18:30 Chlorhexidine Gluconate (Peridex) 15 ml BID MT Last administered on 05/28/17 08:49; Admin Dose 15 ML; Start 04/22/17 at 21:00 Vitamin A/Vitamin D (Vitamin A & D Oint) 1 applic TID TOP Last administered on 05/28/17 12:09; Admin Dose 1 APPLIC; Start 04/22/17 at 21:00 Vitamin A/Vitamin D (Vitamin A & D Oint) 1 applic TID PRN TOP DRYNESS Last administered on 04/22/17 15:29; Admin Dose 1 APPLIC; Start 04/22/17 at 15:00 Acetaminophen/ Hydrocodone Bitart ([place] (5/325)) 1 tab Q6H GTB Last administered on 05/28/17 09:56; Admin Dose 1 TAB; Start 04/22/17 at 21:30 Spironolactone (Aldactone) 25 mg DAILY NGT Last administered on 05/28/17 08:47 ; Admin Dose 25 MG; Start 04/25/17 at 19:00; Status Future hold Diltiazem HCl 5 mg 5 mg Q1H PRN IV HEART RATE GREATER THAN 120 Last administered on 04/29/17 06:17; Admin Dose 5 MG; Start 04/29/17 at 05:00 Sodium Chloride 1,000 ml @ 0 mls/hr Q0M IV Last administered on 05/01/17 03: 00; Admin Dose 1,000 MLS/HR; Start 05/01/17 at 03:00 Sodium Chloride 1,000 ml @ 0 mls/hr Q0M IV Last administered on 05/01/17 04: 00; Admin Dose 1,000 MLS/HR; Start 05/01/17 at 03:30 Diltiazem HCl (Cardizem-D5W 125 Mg/125 ml Drip) 125 ml @ 5 mls/hr TITRATE IV Last administered on 05/02/17 19:11; Admin Dose 5 MLS/HR; Start 05/02/17 at 19: 00 Metoprolol Tartrate (Lopressor) 25 mg QID GTB Last administered on 05/28/17 12 :11; Admin Dose 25 MG; Start 05/07/17 at 09:00 Furosemide (Lasix) 40 mg Q12 IV Last administered on 05/28/17 08:52; Admin Dose 40 MG; Start 05/08/17 at 09:00 Vitamin B Complex/ Vitamin C (Berocca) 1 cap DAILY PO Last administered on 05/28 08:47; Admin Dose 1 CAP; Start 05/13/17 at 09:00 Nystatin (Nystatin Susp) 5 ml QID PO Last administered on 05/28/17 12:09; Admin Dose 5 ML; Start 05/12/17 at 17:00 Aspirin (Aspirin) 81 mg DAILY NGT Last administered on 05/28/17 08:47; Admin Dose 81 MG; Start 05/19/17 at 09:00 Lansoprazole (Prevacid) 30 mg BID@06,18 GTB Last administered on 05/28/17 06: 07; Admin Dose 30 MG; Start 05/20/17 at 18:00 Multivitamins (Multivitamin) 30 ml DAILY GTB Last administered on 05/28/17 08: 47; Admin Dose 30 ML; Start 05/24/17 at 09:00 Metolazone (Zaroxolyn) 5 mg DAILY PEG Last administered on 05/28/17 12:10; Admin Dose 5 MG; Start 05/27/17 at 11:00 LORETO MCKEON NP May 28, 2017 15:50
--- NOTE | 2017-05-28 23:06 | PN ---
Date/Time of Note Date/Time of Note DATE: 05/28/17 TIME: 22:55 Assessment/Plan Lines/Catheters IV Catheter Type (from [facility]): BHARTI Latif in Place (from [facility]): Yes Assessment/Plan Chief Complaint/Hosp Course 1. Cholelithiasis: Tolerating tube feeds; no abdominal pain/discomfort/bloating ; +bowel function -No surgical intervention required at this time 2. Pneumonia: Recurrent +sputum cultures; appears comfortable, no fevers, s/p abx -pulmonary toilet -wean as tolerated 3. Vent dependent respiratory failure: 2/2 aspiration PNA+ CHF;reintubated and extubated, coded 04/21 and 05/01; comfortable on vent; on SIMV -as above 4. KEYONNA: likely 2/2 septic shock; with + urine output; will need fpc HD, HD today unable 2/2 poor flow in catheter -judicious fluid management -avoid nephrotoxic agents 5. Uncontrolled Afib: s/p amiodarone drip, on oral amiodarone; episodes of Afib Now SR -medical optimization 6. Leukocytosis with lactic acidosis: 2/2 pneumonia +/- steroids vs.fungemia vs other (urine, repeat blood cultures negative); normalized today -per ID 7. Macrocytic anemia: chronic vs. dilutional vs. acute bleed vs. b12/folate deficiency; hh stable -monitor -Transfuse as needed 8. Electrolyte imbalance: (hyponatremia, hypokalemia); improved -electrolyte optimization 9. CHF: BNP elevated -judicious fluid management -medical optimization 10. Adrenal Insufficiency -solucortef 11. Oral lesions: improving 12. Hypothyroidism; tsh elevated -on synthroid 13. Hypocalcemia with hypoalbuminemia -optimize nutrition 14. Bilateral upper and lower extremity edema: hx(+) Thrombus in upper arm; lower leg pain, doppler (-) -elevate extremities -supportive 15. Hypoalbuminemia: 2/2 malnutrition +/- inflammation; decreased; tolerating tf ; -nutrition optimization -as above Patient seen and examined in collaboration with Dr. Justus Antonio. Thank you Problems: Subjective 24 Hr Interval Summary Dialysis held due to poor flow from bharti. Continues on vent. Sleepy. No c/o pain, n/v/d/dysuria, fevers, chills, cp, palpitations, metzger. Exam/Review of Systems Vital Signs Vitals Vital Signs Date Time Temp Pulse Resp B/P Pulse Ox O2 Delivery O2 Flow Rate FiO2 05/28/17 21:47 35 05/28/17 20:00 98.1 60 20 133/65 97 Intake and Output 05/27/17 05/27/17 05/28/17 15:00 23:00 07:00 Intake Total 300 ml 960 ml 760 ml Output Total 300 ml 900 ml 350 ml Balance 0 ml 60 ml 410 ml Exam Free Text/Dictation Constitutional: somnolent, easy to arouse alert pleasant Head: atraumatic, normocephalic Eyes: PERRL, nl lids, nl sclera ENMT: No mucosa pink and moist (pink and moist with healing perioral lesions) Neck: non-tender, supple, tracheostomy AC setting currently Respiratory: diminished, comfortable on vent, min sputum Cardiovascular: nl pulses, regular rate and rhythm, Gastrointestinal: non distended, GT tubes site no erythema, no drainage, non tenderness, bowel sounds x 4 quads, soft; tf ongoing Genitourinary - Female: nl external genitalia Musculoskeletal: nl extremities to inspection Extremities: normal pulses, bilateral upper/lower extremity edema 1+; improved extremity edema Neurological: responsive Skin: nl turgor, No rash or lesions Lymph: nl lymph node Results Result Diagram: 05/28/17 0708 05/28/17 0708 ADDISON FREGOSO NP May 28, 2017 23:06
[2017-05-29] VITALS (23 sets, daily range): BP systolic 112–166; BP diastolic 56–72; PULSE 59–82; RESP 8–20
[2017-05-29] MEDS: METOCLOPRAMIDE 10 MG INJ IV SCH ×4 (01:05→17:55)
[2017-05-29] MEDS: INSULIN ASPART [NOVOLOG] 3 ML PEN SC SCH ×4 (01:11→17:55)
[2017-05-29] MEDS: LEVALBUTEROL (HFA) 15 GM INHALER INH SCH ×4 (01:57→21:43)
[2017-05-29] MEDS: HYDROCODONE/APAP (5/325) TAB GTB SCH ×4 (04:29→21:03)
[2017-05-29] MEDS: LEVOTHYROXINE 100 MCG TAB GTB SCH (05:49)
[2017-05-29] MEDS: LANSOPRAZOLE 30 MG CAP GTB SCH ×2 (05:49→17:54)
[2017-05-29] MEDS: VITAMIN B COMPLEX/VIT C CAP PO SCH (08:11)
[2017-05-29] MEDS: CHLORHEXIDINE GLUCONATE 15 ML UD CUP MT SCH ×2 (08:11→20:46)
[2017-05-29] MEDS: SPIRONOLACTONE 25 MG TAB NGT SCH (08:11)
[2017-05-29] MEDS: CITALOPRAM 20 MG TAB NGT SCH (08:11)
[2017-05-29] MEDS: NYSTATIN SUSP 5 ML CUP PO SCH ×4 (08:11→20:47)
[2017-05-29] MEDS: VITAMIN A & D 5 GM OINT PACKET TOP SCH ×3 (08:11→20:47)
[2017-05-29] MEDS: ASPIRIN 81 MG TAB NGT SCH (08:11)
[2017-05-29] MEDS: METOPROLOL 25 MG TAB GTB SCH ×4 (08:12→20:46)
[2017-05-29] MEDS: METOLAZONE 5 MG TAB PEG SCH (08:12)
[2017-05-29] MEDS: FUROSEMIDE 40 MG INJ IV SCH ×2 (08:13→20:46)
[2017-05-29] MEDS: AMIODARONE 200 MG TAB GTB SCH ×2 (08:13→20:46)
[2017-05-29] MEDS: MULTIVITAMINS 30 ML CUP GTB SCH (08:13)
--- NOTE | 2017-05-29 10:38 | CONS ---
Date/Time of Note Date/Time of Note DATE: 05/29/17 TIME: 10:37 Consult Date/Type/Reason Admit Date/Time Apr 11, 2017 at 11:28 Initial Consult Date 04/12/17 Type of Consultation: CARDIOLOGY Ordering Provider: NINA MACIEL DO Subjective CARDIOLOGY FOLLOW UP NOTE: D/W staff and rhythm was reviewed. pt remains in NSR. no afib overnight no chest pain or pressure or palpitations. pt still s/p trach on vent on tele. s/p transfusion on 05/14/17 and getting transfused again 05/26/17 Objective: General: s/p trach on vent HEENT: NC/AT. . oropharynx with multiple lesions. . NECK: NO JVD. no stridor. s/p trach on vent CV: RRR. systolic ejection murmur; no gallop or rubs. PULM: + mild rhonchi. no wheezes. GI: SOFT, NT, ND, no rebound or guarding s/p PEG Extremity: 1-2+ B/L LE edema. no clubbing. neuro: sleeping comfortably Psych: calm rectal: deferred Derm: multiple echymosis : S/P mims catheter in plac Objective Vital Signs Date Time Temp Pulse Resp B/P Pulse Ox O2 Delivery O2 Flow Rate FiO2 05/29/17 09:10 60 15 100 35 05/29/17 07:36 98.7 166/72 Intake and Output 05/28/17 05/28/17 05/29/17 15:00 23:00 07:00 Intake Total 530 ml 960 ml Output Total 500 ml 600 ml Balance 30 ml 360 ml Results/Medications Result Diagram: 05/28/17 0708 05/28/17 0708 Results 24 hrs Laboratory Tests Test 05/28/17 12:01 05/28/17 18:14 05/29/17 01:08 05/29/17 05:48 Bedside Glucose 154 152 163 147 Test 05/29/17 06:39 05/29/17 07:21 White Blood Count Pending Red Blood Count Pending Hemoglobin Pending Hematocrit Pending Mean Corpuscular Volume Pending Mean Corpuscular Hemoglobin Pending Mean Corpuscular Hemoglobin Concent Pending Red Cell Distribution Width Pending Platelet Count Pending Mean Platelet Volume Pending Lab Scanned Report BLOOD TRANSFUSION Medications Current Medications Metoprolol Tartrate (Lopressor) 5 mg Q4H PRN IV HR>110 Hold SBP<110 Last administered on 04/20/17 17:36; Admin Dose 5 MG; Start 04/11/17 at 13:30 Miscellaneous Information 1 ea NOTE XX ; Start 04/11/17 at 16:30 Glucose (Glutose) 15 gm Q15M PRN PO DECREASED GLUCOSE Last administered on 05/07 03:27; Admin Dose 15 GM; Start 04/11/17 at 16:30 Glucose (Glutose) 22.5 gm Q15M PRN PO DECREASED GLUCOSE; Start 04/11/17 at 16: 30 Dextrose (D50w Syringe) 25 ml Q15M PRN IV DECREASED GLUCOSE Last administered on 04/12/17 23:56; Admin Dose 25 ML; Start 04/11/17 at 16:30 Dextrose (D50w Syringe) 50 ml Q15M PRN IV DECREASED GLUCOSE; Start 04/11/17 at 16:30 Glucagon (Glucagen) 1 mg Q15M PRN IM DECREASED GLUCOSE; Start 04/11/17 at 16:30 Glucose (Glutose) 15 gm Q15M PRN BUCCAL DECREASED GLUCOSE; Start 04/11/17 at 16 :30 Metoclopramide HCl (Reglan) 10 mg Q6 IV Last administered on 05/29/17 05:49; Admin Dose 10 MG; Start 04/12/17 at 18:00 Insulin Aspart (Novolog Insulin Pen) NOVOLOG *MILD* ALGORI... Q6H SC Last administered on 05/29/17 05:51; Admin Dose 1 UNIT; Start 04/15/17 at 00:00 IV Flush (NS 10 ml) 10 ml PRN PRN IV FLUSH LINE; Start 04/15/17 at 13:00 Amiodarone HCl (Cordarone) 200 mg BID GTB Last administered on 05/29/17 08:13 ; Admin Dose 200 MG; Start 04/16/17 at 13:00 Heparin Sodium (Porcine) (Heparin (5000 Units/0.5 ml)) 5,000 unit BID SC Last administered on 04/30/17 21:03; Admin Dose 5,000 UNIT; Start 04/18/17 at 16:22; Status Future Hold Citalopram Hydrobromide (Celexa) 20 mg DAILY NGT Last administered on 08:11; Admin Dose 20 MG; Start 04/19/17 at 09:00 Hydralazine HCl (Apresoline) 20 mg Q6H PRN IV sbp ABOVE 160 Last administered on 05/22/17 19:59; Admin Dose 20 MG; Start 04/18/17 at 18:30 Chlorhexidine Gluconate (Peridex) 15 ml BID MT Last administered on 05/29/17 08:11; Admin Dose 15 ML; Start 04/22/17 at 21:00 Vitamin A/Vitamin D (Vitamin A & D Oint) 1 applic TID TOP Last administered on 05/29/17 08:11; Admin Dose 1 APPLIC; Start 04/22/17 at 21:00 Vitamin A/Vitamin D (Vitamin A & D Oint) 1 applic TID PRN TOP DRYNESS Last administered on 04/22/17 15:29; Admin Dose 1 APPLIC; Start 04/22/17 at 15:00 Acetaminophen/ Hydrocodone Bitart ([place] (5/325)) 1 tab Q6H GTB Last administered on 05/29/17 09:49; Admin Dose 1 TAB; Start 04/22/17 at 21:30 Spironolactone (Aldactone) 25 mg DAILY NGT Last administered on 05/29/17 08:11 ; Admin Dose 25 MG; Start 04/25/17 at 19:00; Status Future hold Diltiazem HCl 5 mg 5 mg Q1H PRN IV HEART RATE GREATER THAN 120 Last administered on 04/29/17 06:17; Admin Dose 5 MG; Start 04/29/17 at 05:00 Sodium Chloride 1,000 ml @ 0 mls/hr Q0M IV Last administered on 05/01/17 03: 00; Admin Dose 1,000 MLS/HR; Start 05/01/17 at 03:00 Sodium Chloride 1,000 ml @ 0 mls/hr Q0M IV Last administered on 05/01/17 04: 00; Admin Dose 1,000 MLS/HR; Start 05/01/17 at 03:30 Diltiazem HCl (Cardizem-D5W 125 Mg/125 ml Drip) 125 ml @ 5 mls/hr TITRATE IV Last administered on 05/02/17 19:11; Admin Dose 5 MLS/HR; Start 05/02/17 at 19: 00 Metoprolol Tartrate (Lopressor) 25 mg QID GTB Last administered on 05/29/17 08 :12; Admin Dose 25 MG; Start 05/07/17 at 09:00 Furosemide (Lasix) 40 mg Q12 IV Last administered on 05/29/17 08:13; Admin Dose 40 MG; Start 05/08/17 at 09:00 Vitamin B Complex/ Vitamin C (Berocca) 1 cap DAILY PO Last administered on 05/29 08:11; Admin Dose 1 CAP; Start 05/13/17 at 09:00 Nystatin (Nystatin Susp) 5 ml QID PO Last administered on 05/29/17 08:11; Admin Dose 5 ML; Start 05/12/17 at 17:00 Aspirin (Aspirin) 81 mg DAILY NGT Last administered on 05/29/17 08:11; Admin Dose 81 MG; Start 05/19/17 at 09:00 Lansoprazole (Prevacid) 30 mg BID@,18 GTB Last administered on 05/29/17 05: 49; Admin Dose 30 MG; Start 05/20/17 at 18:00 Multivitamins (Multivitamin) 30 ml DAILY GTB Last administered on 05/29/17 08: 13; Admin Dose 30 ML; Start 05/24/17 at 09:00 Metolazone (Zaroxolyn) 5 mg DAILY PEG Last administered on 05/29/17 08:12; Admin Dose 5 MG; Start 05/27/17 at 11:00 Assessment/Plan Chief Complaint/Hosp Course 1. acute on chronic hypoxemic respiratory failure: 2. S/P NSTEMI: due to demand ischemia. 3. CHF/ fluid overload: due to diastolic heart failure 4. moderate 5. Arrhythmia and P afib, frequent PVC: currently in NSR. 6. ANEMIA: s/p multiple transfusion 7. s/p pneumonia, . 8. s/p sepsis and shock: BP is stable now. 9. Anasarca 10. s/p cardiopulm arrest due to resp failure 11. renal failure 12. coagulopathy Rec: cont resp care as per PULM Team. correct lytes prn. CONT betablocker as tolerated. . cont thyroid supplement . cont tele monitoring HD/ ultrafiltration will be deferred to renal. transfuse prn cont low dose ASA 81 mg only due to recurrent anemia. THANK YOU. Problems: FRANCISCO BLACKWOOD MD May 29, 2017 10:38
[2017-05-29 10:44] LABS: CALCIUM 8.3 mg/dl (8.4-10.2); CREATININE 1.98 mg/dl (0.44-1.00); MAGNESIUM 2.8 mg/dl (1.7-2.5); PHOSPHORUS 3.5 mg/dl (2.5-4.9); POTASSIUM 4.1 mmol/L (3.5-5.1)
--- NOTE | 2017-05-29 10:46 | PN ---
Date/Time of Note Date/Time of Note DATE: 05/29/17 TIME: 10:46 Assessment/Plan VTE Prophylaxis VTE Prophylaxis Intervention: other Lines/Catheters IV Catheter Type (from Nrsg): BHARTI Central line still needed: Yes Urinary Cath still in place: Yes Reason Cath still needed: urinary retention Assessment/Plan Chief Complaint/Hosp Course SUBJECTIVE DATA: no new events noted. no nausea, vomiting, new rash, hematuria, melena, tachypnea trach in place vent settings and cardiac strips were reviewed has a temp line in place for HD which has poor blood flow d/w at the bedside extensively OBJECTIVE DATA: HEENT: Head is normocephalic. NECK: Supple. HEART: Regular rate. LUNGS: Diminished breath sounds at the base. ABDOMEN: Soft, nontender to palpation. No rebound or guarding. EXTREMITIES: Negative for clubbing, cyanosis. Positive edema. DERMATOLOGIC: No rashes. MUSCULOSKELETAL: No joint effusion. NEUROLOGIC: Unchanged exam. MEDICATIONS: Reviewed. LABORATORY AND DIAGNOSTIC DATA: Reviewed. 1. Ventilator-dependent respiratory failure. Vent settings reviewed. ABGs reviewed. Continue to monitor. Follow up with Pulmonary. there is possible foreign body aspiration. Further imaging studies are pending 2. History of thyroid cancer with tracheomalacia. The patient is status post trach. Has been evaluated by ENT. Continue to monitor. 3. Nonoliguric acute kidney injury on top of chronic kidney disease. she has good uop and her access is not working well. will hold HD. continue diuretics. 4. Volume overload secondary to acute kidney injury and CHF. 5. Sepsis, status post shock secondary to aspiration pneumonia. The patient is completing antibiotic course. 6. Adrenal insufficiency. Continue current steroid regimen. 7. Acute encephalopathy, etiology is toxic metabolic, uremic, improving. Continue dialysis. Continue supportive care. 8. Hypothyroidism. Continue Synthroid. 9. Hyponatremia, improving. Continue dialysis. 10. Anemia. Monitor H and H levels. 11. Congestive heart failure. Continue medical management. 12. Left upper extremity deep vein thrombosis. The patient's anticoagulation is on hold secondary to recent gastrointestinal bleed. 13. Dysphagia, status post tube feeding. 14. Status post GI bleed. 15. Gastrointestinal and deep venous thrombosis prophylaxis. Problems: Exam/Review of Systems Vital Signs Vitals Vital Signs Date Time Temp Pulse Resp B/P Pulse Ox O2 Delivery O2 Flow Rate FiO2 05/29/17 09:10 60 15 100 35 05/29/17 07:36 98.7 166/72 Intake and Output 05/28/17 05/28/17 05/29/17 15:00 23:00 07:00 Intake Total 530 ml 960 ml Output Total 500 ml 600 ml Balance 30 ml 360 ml Results Result Diagram: 05/28/17 0708 05/28/17 0708 Results 24 hrs Laboratory Tests Test 05/28/17 12:01 05/28/17 18:14 05/29/17 01:08 05/29/17 05:48 Bedside Glucose 154 152 163 147 Test 05/29/17 06:39 05/29/17 07:21 White Blood Count Pending Red Blood Count Pending Hemoglobin Pending Hematocrit Pending Mean Corpuscular Volume Pending Mean Corpuscular Hemoglobin Pending Mean Corpuscular Hemoglobin Concent Pending Red Cell Distribution Width Pending Platelet Count Pending Mean Platelet Volume Pending Lab Scanned Report BLOOD TRANSFUSION Medications Medications Current Medications Metoprolol Tartrate (Lopressor) 5 mg Q4H PRN IV HR>110 Hold SBP<110 Last administered on 04/20/17 17:36; Admin Dose 5 MG; Start 04/11/17 at 13:30 Miscellaneous Information 1 ea NOTE XX ; Start 04/11/17 at 16:30 Glucose (Glutose) 15 gm Q15M PRN PO DECREASED GLUCOSE Last administered on 05/07 03:27; Admin Dose 15 GM; Start 04/11/17 at 16:30 Glucose (Glutose) 22.5 gm Q15M PRN PO DECREASED GLUCOSE; Start 04/11/17 at 16: 30 Dextrose (D50w Syringe) 25 ml Q15M PRN IV DECREASED GLUCOSE Last administered on 04/12/17 23:56; Admin Dose 25 ML; Start 04/11/17 at 16:30 Dextrose (D50w Syringe) 50 ml Q15M PRN IV DECREASED GLUCOSE; Start 04/11/17 at 16:30 Glucagon (Glucagen) 1 mg Q15M PRN IM DECREASED GLUCOSE; Start 04/11/17 at 16:30 Glucose (Glutose) 15 gm Q15M PRN BUCCAL DECREASED GLUCOSE; Start 04/11/17 at 16 :30 Metoclopramide HCl (Reglan) 10 mg Q6 IV Last administered on 05/29/17 05:49; Admin Dose 10 MG; Start 04/12/17 at 18:00 Insulin Aspart (Novolog Insulin Pen) NOVOLOG *MILD* ALGORI... Q6H SC Last administered on 05/29/17 05:51; Admin Dose 1 UNIT; Start 04/15/17 at 00:00 IV Flush (NS 10 ml) 10 ml PRN PRN IV FLUSH LINE; Start 04/15/17 at 13:00 Amiodarone HCl (Cordarone) 200 mg BID GTB Last administered on 05/29/17 08:13 ; Admin Dose 200 MG; Start 04/16/17 at 13:00 Heparin Sodium (Porcine) (Heparin (5000 Units/0.5 ml)) 5,000 unit BID SC Last administered on 04/30/17 21:03; Admin Dose 5,000 UNIT; Start 04/18/17 at 16:22; Status Future Hold Citalopram Hydrobromide (Celexa) 20 mg DAILY NGT Last administered on 08:11; Admin Dose 20 MG; Start 04/19/17 at 09:00 Hydralazine HCl (Apresoline) 20 mg Q6H PRN IV sbp ABOVE 160 Last administered on 05/22/17 19:59; Admin Dose 20 MG; Start 04/18/17 at 18:30 Chlorhexidine Gluconate (Peridex) 15 ml BID MT Last administered on 05/29/17 08:11; Admin Dose 15 ML; Start 04/22/17 at 21:00 Vitamin A/Vitamin D (Vitamin A & D Oint) 1 applic TID TOP Last administered on 05/29/17 08:11; Admin Dose 1 APPLIC; Start 04/22/17 at 21:00 Vitamin A/Vitamin D (Vitamin A & D Oint) 1 applic TID PRN TOP DRYNESS Last administered on 04/22/17 15:29; Admin Dose 1 APPLIC; Start 04/22/17 at 15:00 Acetaminophen/ Hydrocodone Bitart ([place] (5/325)) 1 tab Q6H GTB Last administered on 05/29/17 09:49; Admin Dose 1 TAB; Start 04/22/17 at 21:30 Spironolactone (Aldactone) 25 mg DAILY NGT Last administered on 05/29/17 08:11 ; Admin Dose 25 MG; Start 04/25/17 at 19:00; Status Future hold Diltiazem HCl 5 mg 5 mg Q1H PRN IV HEART RATE GREATER THAN 120 Last administered on 04/29/17 06:17; Admin Dose 5 MG; Start 04/29/17 at 05:00 Sodium Chloride 1,000 ml @ 0 mls/hr Q0M IV Last administered on 05/01/17 03: 00; Admin Dose 1,000 MLS/HR; Start 05/01/17 at 03:00 Sodium Chloride 1,000 ml @ 0 mls/hr Q0M IV Last administered on 05/01/17 04: 00; Admin Dose 1,000 MLS/HR; Start 05/01/17 at 03:30 Diltiazem HCl (Cardizem-D5W 125 Mg/125 ml Drip) 125 ml @ 5 mls/hr TITRATE IV Last administered on 05/02/17 19:11; Admin Dose 5 MLS/HR; Start 05/02/17 at 19: 00 Metoprolol Tartrate (Lopressor) 25 mg QID GTB Last administered on 05/29/17 08 :12; Admin Dose 25 MG; Start 05/07/17 at 09:00 Furosemide (Lasix) 40 mg Q12 IV Last administered on 05/29/17 08:13; Admin Dose 40 MG; Start 05/08/17 at 09:00 Vitamin B Complex/ Vitamin C (Berocca) 1 cap DAILY PO Last administered on 05/29 08:11; Admin Dose 1 CAP; Start 05/13/17 at 09:00 Nystatin (Nystatin Susp) 5 ml QID PO Last administered on 05/29/17 08:11; Admin Dose 5 ML; Start 05/12/17 at 17:00 Aspirin (Aspirin) 81 mg DAILY NGT Last administered on 05/29/17 08:11; Admin Dose 81 MG; Start 05/19/17 at 09:00 Lansoprazole (Prevacid) 30 mg BID@18 GTB Last administered on 05/29/17 05: 49; Admin Dose 30 MG; Start 05/20/17 at 18:00 Multivitamins (Multivitamin) 30 ml DAILY GTB Last administered on 05/29/17 08: 13; Admin Dose 30 ML; Start 05/24/17 at 09:00 Metolazone (Zaroxolyn) 5 mg DAILY PEG Last administered on 05/29/17 08:12; Admin Dose 5 MG; Start 05/27/17 at 11:00 DERECK QUINTERO DO May 29, 2017 10:46
--- NOTE | 2017-05-29 11:18 | PN ---
Date/Time of Note Date/Time of Note DATE: 05/29/17 TIME: 11:13 Assessment/Plan Lines/Catheters IV Catheter Type (from [facility]): BHARTI Mims in Place (from [facility]): Yes Assessment/Plan Chief Complaint/Hosp Course 1. Cholelithiasis: Tolerating tube feeds; no abdominal pain/discomfort/bloating ; +bowel function -No surgical intervention required at this time 2. Pneumonia: Recurrent +sputum cultures; appears comfortable, no fevers, s/p abx; CXR: with nodule-possible aspirated tooth -pulmonary toilet -wean as tolerated -ct chest pending 3. Vent dependent respiratory failure: 2/2 aspiration PNA+ CHF;reintubated and extubated, coded 04/21 and 05/01; comfortable on vent; -as above 4. KEYONNA: likely 2/2 septic shock; with + urine output; will need senior care HD, HD today unable 2/2 poor flow in catheter-poss cath placement -judicious fluid management -avoid nephrotoxic agents 5. Uncontrolled Afib: s/p amiodarone drip, on oral amiodarone; episodes of Afib Now SR -medical optimization 6. Leukocytosis with lactic acidosis: 2/2 pneumonia +/- steroids vs.fungemia vs other (urine, repeat blood cultures negative); normalized today -per ID 7. Macrocytic anemia: chronic vs. dilutional vs. acute bleed vs. b12/folate deficiency; hh stable -monitor -Transfuse as needed 8. Electrolyte imbalance: (hyponatremia, hypokalemia); improved -electrolyte optimization 9. CHF: BNP elevated -judicious fluid management -medical optimization 10. Adrenal Insufficiency -solucortef 11. Oral lesions: improving 12. Hypothyroidism; tsh elevated -on synthroid 13. Hypocalcemia with hypoalbuminemia -optimize nutrition 14. Bilateral upper and lower extremity edema: hx(+) Thrombus in upper arm; lower leg pain, doppler (-) -elevate extremities -supportive 15. Hypoalbuminemia: 2/2 malnutrition +/- inflammation; decreased; tolerating tf ; -nutrition optimization -as above Patient seen and examined in collaboration with Dr. Justus Antonio. Thank you Problems: Subjective 24 Hr Interval Summary appears comfortable on vent. No sob, congested cough. reports that she might have swallowed her tooth-nodule noted on cxr; awaiting ct chest. No fevers , chills, n/v/d/dysuria, cp, palpitations. +bowel function. Exam/Review of Systems Vital Signs Vitals Vital Signs Date Time Temp Pulse Resp B/P Pulse Ox O2 Delivery O2 Flow Rate FiO2 05/29/17 09:10 60 15 100 35 05/29/17 07:36 98.7 166/72 Intake and Output 05/28/17 05/28/17 05/29/17 15:00 23:00 07:00 Intake Total 530 ml 960 ml Output Total 500 ml 600 ml Balance 30 ml 360 ml Exam Free Text/Dictation Constitutional: somnolent, easy to arouse alert pleasant Head: atraumatic, normocephalic Eyes: PERRL, nl lids, nl sclera; right eye slightly red ENMT: No mucosa pink and moist (pink and moist with healing perioral lesions), tooth missing, Neck: non-tender, supple, tracheostomy AC setting currently Respiratory: diminished, comfortable on vent, min sputum Cardiovascular: nl pulses, regular rate and rhythm, Gastrointestinal: non distended, GT tubes site no erythema, no drainage, non tenderness, bowel sounds x 4 quads, soft; tf ongoing Genitourinary - Female: nl external genitalia; mims with yellow output Musculoskeletal: nl extremities to inspection Extremities: normal pulses, bilateral upper/lower extremity edema 1+; improved extremity edema Neurological: responsive Skin: nl turgor, No rash or lesions Lymph: nl lymph node Results Result Diagram: 05/28/17 0708 05/29/17 0936 ADDISON FREGOSO NP May 29, 2017 11:18
[2017-05-29 11:32] LABS: BASOPHILS % 0.3 % (0.0-2.0); EOSINOPHILS # 0.2 10^3/ul (0.0-0.5); EOSINOPHILS % 1.7 % (0.0-7.0); HEMATOCRIT 30.5 % (37.0-47.0); HEMOGLOBIN 9.9 g/dl (12.0-16.0); LYMPHOCYTES % 9.1 % (15.0-51.0); MEAN CORPUSCULAR HEMOGLOBIN 31.3 pg (29.0-33.0); MEAN CORPUSCULAR HGB CONC 32.5 g/dl (32.0-37.0); MEAN CORPUSCULAR VOLUME 96.5 fl (82.0-101.0); MEAN PLATELET VOLUME 11.5 fl (7.4-10.4); MONOCYTES % 8.5 % (0.0-11.0); PLATELET COUNT 138 10^3/UL (140-415); RED BLOOD COUNT 3.16 10^6/ul (4.20-5.40); RED CELL DISTRIBUTION WIDTH 21.8 % (11.5-14.5); WHITE BLOOD COUNT 11.2 10^3/ul (4.8-10.8)
[2017-05-29 11:41] LABS: POSITIVE DIFF @See below
--- NOTE | 2017-05-29 12:42 | CONS ---
Date/Time of Note Date/Time of Note DATE: 05/29/17 TIME: 12:41 Consult Date/Type/Reason Admit Date/Time Apr 11, 2017 at 11:28 Initial Consult Date 04/12/17 Type of Consultation: Pulmonary Ordering Provider: NINA MACIEL DO Subjective No significant changes pending CT of the chest Objective Vital Signs Date Time Temp Pulse Resp B/P Pulse Ox O2 Delivery O2 Flow Rate FiO2 05/29/17 11:57 98.2 75 20 154/70 100 05/29/17 11:05 35 Intake and Output 05/28/17 05/28/17 05/29/17 15:00 23:00 07:00 Intake Total 530 ml 960 ml Output Total 500 ml 600 ml Balance 30 ml 360 ml Exam PHYSICAL EXAMINATION GENERAL: Elderly lady on mechanical ventilation via tracheostomy VITAL SIGNS: see below. HEENT: Pupils equal, round, and reactive to light. Tracheostomy site clean and intact. CARDIAC: S1, S2, 1/6 systolic ejection murmur CHEST: Diminished air entry bilaterally. ABDOMEN: Mildly distended. Bowel sounds present no guarding or rebound EXTREMITIES: No cyanosis, clubbing edema +1 NEUROLOGIC: Generalized weakness Results/Medications Result Diagram: 05/29/17 0956 05/29/17 0936 Results 24 hrs Laboratory Tests Test 05/28/17 18:14 05/29/17 01:08 05/29/17 05:48 05/29/17 07:21 Bedside Glucose 152 163 147 Lab Scanned Report BLOOD TRANSFUSION Test 05/29/17 09:36 05/29/17 09:56 05/29/17 11:39 Sodium Level 133 L Potassium Level 4.1 Chloride Level 98 Carbon Dioxide Level 30 Anion Gap 9 Blood Urea Nitrogen 101 H Creatinine 1.98 H Glucose Level 119 Calcium Level 8.3 L Phosphorus Level 3.5 Magnesium Level 2.8 H White Blood Count 11.2 H Red Blood Count 3.16 L Hemoglobin 9.9 L Hematocrit 30.5 L Mean Corpuscular Volume 96.5 Mean Corpuscular Hemoglobin 31.3 Mean Corpuscular Hemoglobin Concent 32.5 Red Cell Distribution Width 21.8 H Platelet Count 138 L Mean Platelet Volume 11.5 H Neutrophils % 77.0 Lymphocytes % 9.1 L Monocytes % 8.5 Eosinophils % 1.7 Basophils % 0.3 Nucleated Red Blood Cells % 0.0 Neutrophils # (Manual) 9 H Lymphocytes # 1.0 Monocytes # 1.0 H Eosinophils # 0.2 Basophils # 0.0 Nucleated Red Blood Cells # 0.0 Bedside Glucose 120 Medications Current Medications Metoprolol Tartrate (Lopressor) 5 mg Q4H PRN IV HR>110 Hold SBP<110 Last administered on 04/20/17 17:36; Admin Dose 5 MG; Start 04/11/17 at 13:30 Miscellaneous Information 1 ea NOTE XX ; Start 04/11/17 at 16:30 Glucose (Glutose) 15 gm Q15M PRN PO DECREASED GLUCOSE Last administered on 05/07 03:27; Admin Dose 15 GM; Start 04/11/17 at 16:30 Glucose (Glutose) 22.5 gm Q15M PRN PO DECREASED GLUCOSE; Start 04/11/17 at 16: 30 Dextrose (D50w Syringe) 25 ml Q15M PRN IV DECREASED GLUCOSE Last administered on 04/12/17 23:56; Admin Dose 25 ML; Start 04/11/17 at 16:30 Dextrose (D50w Syringe) 50 ml Q15M PRN IV DECREASED GLUCOSE; Start 04/11/17 at 16:30 Glucagon (Glucagen) 1 mg Q15M PRN IM DECREASED GLUCOSE; Start 04/11/17 at 16:30 Glucose (Glutose) 15 gm Q15M PRN BUCCAL DECREASED GLUCOSE; Start 04/11/17 at 16 :30 Metoclopramide HCl (Reglan) 10 mg Q6 IV Last administered on 05/29/17 11:41; Admin Dose 10 MG; Start 04/12/17 at 18:00 Insulin Aspart (Novolog Insulin Pen) NOVOLOG *MILD* ALGORI... Q6H SC Last administered on 05/29/17 05:51; Admin Dose 1 UNIT; Start 04/15/17 at 00:00 IV Flush (NS 10 ml) 10 ml PRN PRN IV FLUSH LINE; Start 04/15/17 at 13:00 Amiodarone HCl (Cordarone) 200 mg BID GTB Last administered on 05/29/17 08:13 ; Admin Dose 200 MG; Start 04/16/17 at 13:00 Heparin Sodium (Porcine) (Heparin (5000 Units/0.5 ml)) 5,000 unit BID SC Last administered on 04/30/17 21:03; Admin Dose 5,000 UNIT; Start 04/18/17 at 16:22; Status Future Hold Citalopram Hydrobromide (Celexa) 20 mg DAILY NGT Last administered on 08:11; Admin Dose 20 MG; Start 04/19/17 at 09:00 Hydralazine HCl (Apresoline) 20 mg Q6H PRN IV sbp ABOVE 160 Last administered on 05/22/17 19:59; Admin Dose 20 MG; Start 04/18/17 at 18:30 Chlorhexidine Gluconate (Peridex) 15 ml BID MT Last administered on 05/29/17 08:11; Admin Dose 15 ML; Start 04/22/17 at 21:00 Vitamin A/Vitamin D (Vitamin A & D Oint) 1 applic TID TOP Last administered on 05/29/17 08:11; Admin Dose 1 APPLIC; Start 04/22/17 at 21:00 Vitamin A/Vitamin D (Vitamin A & D Oint) 1 applic TID PRN TOP DRYNESS Last administered on 04/22/17 15:29; Admin Dose 1 APPLIC; Start 04/22/17 at 15:00 Acetaminophen/ Hydrocodone Bitart (Sharon (5/325)) 1 tab Q6H GTB Last administered on 05/29/17 09:49; Admin Dose 1 TAB; Start 04/22/17 at 21:30 Spironolactone (Aldactone) 25 mg DAILY NGT Last administered on 05/29/17 08:11 ; Admin Dose 25 MG; Start 04/25/17 at 19:00; Status Future hold Diltiazem HCl 5 mg 5 mg Q1H PRN IV HEART RATE GREATER THAN 120 Last administered on 04/29/17 06:17; Admin Dose 5 MG; Start 04/29/17 at 05:00 Sodium Chloride 1,000 ml @ 0 mls/hr Q0M IV Last administered on 05/01/17 03: 00; Admin Dose 1,000 MLS/HR; Start 05/01/17 at 03:00 Sodium Chloride 1,000 ml @ 0 mls/hr Q0M IV Last administered on 05/01/17 04: 00; Admin Dose 1,000 MLS/HR; Start 05/01/17 at 03:30 Diltiazem HCl (Cardizem-D5W 125 Mg/125 ml Drip) 125 ml @ 5 mls/hr TITRATE IV Last administered on 05/02/17 19:11; Admin Dose 5 MLS/HR; Start 05/02/17 at 19: 00 Metoprolol Tartrate (Lopressor) 25 mg QID GTB Last administered on 05/29/17 08 :12; Admin Dose 25 MG; Start 05/07/17 at 09:00 Furosemide (Lasix) 40 mg Q12 IV Last administered on 05/29/17 08:13; Admin Dose 40 MG; Start 05/08/17 at 09:00 Vitamin B Complex/ Vitamin C (Berocca) 1 cap DAILY PO Last administered on 05/29 08:11; Admin Dose 1 CAP; Start 05/13/17 at 09:00 Nystatin (Nystatin Susp) 5 ml QID PO Last administered on 05/29/17 08:11; Admin Dose 5 ML; Start 05/12/17 at 17:00 Aspirin (Aspirin) 81 mg DAILY NGT Last administered on 05/29/17 08:11; Admin Dose 81 MG; Start 05/19/17 at 09:00 Lansoprazole (Prevacid) 30 mg BID@06,18 GTB Last administered on 05/29/17 05: 49; Admin Dose 30 MG; Start 05/20/17 at 18:00 Multivitamins (Multivitamin) 30 ml DAILY GTB Last administered on 05/29/17 08: 13; Admin Dose 30 ML; Start 05/24/17 at 09:00 Metolazone (Zaroxolyn) 5 mg DAILY PEG Last administered on 05/29/17 08:12; Admin Dose 5 MG; Start 05/27/17 at 11:00 Assessment/Plan Chief Complaint/Hosp Course Additional Assessment/Plan IMP: 1. VDRF 3. s/p Hypercapnic Respiratory Failure--likely due to critical illness myopathy/ neuropathy 4. s/p septic shock 5. Demand Ischemia 6. Cholecystitis 7. Encephalopathy toxic metabolic resolving 8. Leukocytosis improved. 9. Hyponatremia and end-stage renal failure 10. Anemia likely multifactorial 11. Aspiration foreign body ? RECS: 1. Vent support, trial of SIMV. hold off further weaning for now. 2. BDs 3. TFs/Free H2O 4. Hemodialysis per nephrology 5. Ct chest still pending.. discussed with . May require bronchoscopy Problems: DARWIN CRAWFORD MD, [facility] May 29, 2017 12:41
--- NOTE | 2017-05-29 13:13 | RADRPT ---
PROCEDURE: CT Chest without contrast. CLINICAL INDICATION: Abnormal chest x-ray. Evaluate for foreign body within the right lung. TECHNIQUE: Multiple contiguous helical CT images of the chest were obtained without the administra tion of intravenous contrast. Coronal and sagittal reformatted images were obtained from the source images. CTDIvol (mGy): 9.35; Total Exam DLP (mGy-cm): 354.57. One or more of the following dose reduction techniques were utilized: - Automated exposure control. - Adjustment of the mA and/or kV according to patient size. - Use of iterative reconstruction technique. COMPARISON: Chest x-ray 05/27/2017. FINDINGS: Limited imaging of the lower neck demonstrates a tracheostomy tube in place within the airway. The heart is within upper limits of normal in size to mildly enlarged. The right upper extremity PIC C terminates within the right atrium. There is no pericardial effusion. There is no mediastinal, hi lar or axillary lymphadenopathy. Calcified mediastinal and left hilar lymph nodes are present compat ible with old granulomatous disease. The thoracic aorta is normal in caliber with atherosclerotic ca lcification. Coronary artery calcifications are present. The pulmonary arteries are not enlarged. Low lung volumes are observed. Bibasilar interstitial thickening is observed with numerous tiny alfreda und-glass tree in bud nodules. Diffuse bronchial wall thickening is present. Mild patchy ground-gl ass opacification is seen within the bilateral upper lungs. Focal presumed secretions are seen with in the dependent portion of the left mainstem bronchus. There is no evidence of radiopaque foreign body. A calcified granuloma is seen within the left lung. Limited imaging of the upper abdomen demonstrates punctate stones within the upper pole of the right kidney. Severe degenerative disk disease throughout the thoracic spine is observed. Diffuse subcutaneous ed wilbert is present. IMPRESSION: No evidence of aspirated radiopaque foreign body. Endobronchial secretions are seen within the depe ndent portion of the left mainstem bronchus. Numerous tiny ground-glass tree in bud nodules within the lung bases compatible with bronchiolitis. Diffuse bronchial wall thickening is also present along with patchy nonspecific ground-glass opacif ication within the bilateral upper lungs. Imaging findings may reflect sequelae of pneumonitis and aspiration pneumonia. Nonobstructing right nephrolithiasis. RPTAT: HLST .Rosana Beebe MD, MD Date Time Electronically viewed and signed by .Rosana Beebe MD, on 05/29/2017 13:13 .T/
[2017-05-30] VITALS (24 sets, daily range): BP systolic 93–117; BP diastolic 48–56; PULSE 62–75; RESP 11–18
[2017-05-30] MEDS: METOCLOPRAMIDE 10 MG INJ IV SCH ×4 (00:19→17:19)
[2017-05-30] MEDS: LEVALBUTEROL (HFA) 15 GM INHALER INH SCH ×4 (01:23→19:58)
[2017-05-30] MEDS: HYDROCODONE/APAP (5/325) TAB GTB SCH ×4 (03:52→21:37)
[2017-05-30] MEDS: LANSOPRAZOLE 30 MG CAP GTB SCH ×2 (05:43→17:19)
[2017-05-30] MEDS: LEVOTHYROXINE 100 MCG TAB GTB SCH (05:46)
[2017-05-30] MEDS: INSULIN ASPART [NOVOLOG] 3 ML PEN SC SCH ×4 (05:46→17:19)
[2017-05-30 06:55] LABS: BASOPHILS % 0.3 % (0.0-2.0); EOSINOPHILS # 0.1 10^3/ul (0.0-0.5); HEMATOCRIT 28.7 % (37.0-47.0); HEMOGLOBIN 9.2 g/dl (12.0-16.0); LYMPHOCYTES # 0.8 10^3/ul (0.8-2.9); MEAN CORPUSCULAR HEMOGLOBIN 31.1 pg (29.0-33.0); MEAN CORPUSCULAR HGB CONC 32.1 g/dl (32.0-37.0); MEAN PLATELET VOLUME 11.2 fl (7.4-10.4); MONOCYTE # 0.9 10^3/ul (0.3-0.9); MONOCYTES % 7.4 % (0.0-11.0); NEUTROPHILS % 82.7 % (39.0-77.0); PLATELET COUNT 156 10^3/UL (140-415); RED BLOOD COUNT 2.96 10^6/ul (4.20-5.40); WHITE BLOOD COUNT 12.8 10^3/ul (4.8-10.8)
[2017-05-30 07:40] LABS: CALCIUM 7.9 mg/dl (8.4-10.2); CREATININE 2.14 mg/dl (0.44-1.00); MAGNESIUM 2.8 mg/dl (1.7-2.5); PHOSPHORUS 3.4 mg/dl (2.5-4.9); POTASSIUM 3.9 mmol/L (3.5-5.1)
--- NOTE | 2017-05-30 08:09 | PN ---
DATE: 05/29/2017 SUBJECTIVE DATA: No events overnight. The patient is status post CT of the chest to evaluate for swallowing of her tooth that revealed no evidence of aspirated foreign body. She is currently resting comfortably. No fevers. OBJECTIVE DATA: GENERAL: This is a fragile, chronically ill appearing, wasted, elderly woman who is in no distress. HEENT: Head atraumatic, normocephalic. Sclera anicteric. Buccal mucosa dry. NECK: Supple. RESPIRATORY: Chest rise is symmetrical. Breath sounds diminished at the bases. CARDIAC: S1 and S2. ABDOMEN: Abdomen is soft. Bowel sounds present. EXTREMITIES: Bilateral edema. LABORATORY AND DIAGNOSTIC DATA: WBC 11.2, platelets 138, no shifts or bands. INDWELLING: Trach, PEG, Latif, PICC line, and right femoral Amrit catheter. ASSESSMENT: 1. Chronic respiratory failure. 2. Acute on chronic kidney disease, on hemodialysis. 3. Status post sepsis, urinary tract infection (UTI) fungemia. 4. History of Clostridium difficile colitis. 5. Extremity deep venous thrombosis (DVT). 6. History of head and neck carcinoma (CA). PLAN: 1. The patient remains stable off antibiotics. Again, no evidence of aspirated foreign body per CT of the chest. 2. Continue observing her repeat cultures p.r.n. Dictated By: Doyle Patton NP /[email or web address]/[email or web address] /Document#: [id number]
[2017-05-30] MEDS: VITAMIN B COMPLEX/VIT C CAP PO SCH (08:12)
[2017-05-30] MEDS: NYSTATIN SUSP 5 ML CUP PO SCH ×4 (08:12→21:35)
[2017-05-30] MEDS: CHLORHEXIDINE GLUCONATE 15 ML UD CUP MT SCH ×2 (08:12→21:35)
[2017-05-30] MEDS: ASPIRIN 81 MG TAB NGT SCH (08:12)
[2017-05-30] MEDS: MULTIVITAMINS 30 ML CUP GTB SCH (08:12)
[2017-05-30] MEDS: VITAMIN A & D 5 GM OINT PACKET TOP SCH ×3 (08:12→21:38)
[2017-05-30] MEDS: CITALOPRAM 20 MG TAB NGT SCH (08:13)
[2017-05-30] MEDS: METOLAZONE 5 MG TAB PEG SCH (08:14)
[2017-05-30] MEDS: SPIRONOLACTONE 25 MG TAB NGT SCH (08:14)
[2017-05-30] MEDS: METOPROLOL 25 MG TAB GTB SCH ×4 (08:15→21:36)
[2017-05-30] MEDS: AMIODARONE 200 MG TAB GTB SCH ×2 (08:15→21:37)
[2017-05-30] MEDS: FUROSEMIDE 40 MG INJ IV SCH ×2 (08:16→21:36)
--- NOTE | 2017-05-30 10:20 | PN ---
Date/Time of Note Date/Time of Note DATE: 05/30/17 TIME: 10:15 Assessment/Plan Lines/Catheters IV Catheter Type (from [facility]): BHARTI Mims in Place (from [facility]): Yes Assessment/Plan Chief Complaint/Hosp Course 1. Cholelithiasis: Tolerating tube feeds; no abdominal pain/discomfort/bloating ; +bowel function -No surgical intervention required at this time 2. Pneumonia: Recurrent +sputum cultures; appears comfortable, no fevers, s/p abx; CXR: with nodule-possible aspirated tooth; ct chest: no foreign body -pulmonary toilet -wean as tolerated 3. Vent dependent respiratory failure: 2/2 aspiration PNA+ CHF;reintubated and extubated, coded 04/21 and 05/01; comfortable on vent; on SIMV -as above 4. KEYONNA: likely 2/2 septic shock; with + urine output; will need [facility], HD today unable 2/2 poor flow in catheter-poss cath placement -judicious fluid management -avoid nephrotoxic agents 5. Uncontrolled Afib: s/p amiodarone drip, on oral amiodarone; episodes of Afib Now SR -medical optimization 6. Leukocytosis with lactic acidosis: 2/2 pneumonia +/- steroids vs.fungemia vs other (urine, repeat blood cultures negative); labile -per ID 7. Macrocytic anemia: chronic vs. dilutional vs. acute bleed vs. b12/folate deficiency; hh stable -monitor -Transfuse as needed 8. Electrolyte imbalance: (hyponatremia, hypokalemia); improved -electrolyte optimization 9. CHF: BNP elevated -judicious fluid management -medical optimization 10. Adrenal Insufficiency -solucortef 11. Oral lesions: improving 12. Hypothyroidism; tsh elevated -on synthroid 13. Hypocalcemia with hypoalbuminemia -optimize nutrition 14. Bilateral upper and lower extremity edema: hx(+) Thrombus in upper arm; lower leg pain, doppler (-) -elevate extremities -supportive 15. Hypoalbuminemia: 2/2 malnutrition +/- inflammation; decreased; tolerating tf ; -nutrition optimization -as above Patient seen and examined in collaboration with Dr. Justus Antonio. Thank you Problems: Subjective 24 Hr Interval Summary sleepy. Comfortable on vent. No c/o pain, discomfort. No fevers, chills, n/v/d/ dysuria. +bowel function. Exam/Review of Systems Vital Signs Vitals Vital Signs Date Time Temp Pulse Resp B/P Pulse Ox O2 Delivery O2 Flow Rate FiO2 05/30/17 09:05 71 13 99 30 05/30/17 07:29 98.6 93/50 Intake and Output 05/29/17 05/29/17 05/30/17 15:00 23:00 07:00 Intake Total 730 ml 960 ml Output Total 500 ml 450 ml Balance 230 ml 510 ml Exam Free Text/Dictation Constitutional: somnolent, easy to arouse alert pleasant Head: atraumatic, normocephalic Eyes: PERRL, nl lids, nl sclera; right eye slightly red ENMT: No mucosa pink and moist (pink and moist with healing perioral lesions), tooth missing, Neck: non-tender, supple, tracheostomy AC setting currently Respiratory: diminished, comfortable on vent, min sputum Cardiovascular: nl pulses, regular rate and rhythm, Gastrointestinal: non distended, GT tubes site no erythema, no drainage, non tenderness, bowel sounds x 4 quads, soft; tf ongoing Genitourinary - Female: nl external genitalia; mims with yellow output with sediments Musculoskeletal: nl extremities to inspection Extremities: normal pulses, bilateral upper/lower extremity edema 1+; improved extremity edema Neurological: responsive Skin: nl turgor, No rash or lesions Lymph: nl lymph node Results Result Diagram: 05/30/1761405/30/1715 ADDISON FREGOSO NP May 30, 2017 10:20
--- NOTE | 2017-05-30 12:15 | CONS ---
Date/Time of Note Date/Time of Note DATE: 05/30/17 TIME: 12:14 Consult Date/Type/Reason Admit Date/Time Apr 11, 2017 at 11:28 Initial Consult Date 04/12/17 Type of Consultation: Pulmonary Ordering Provider: NINA MACIEL DO Subjective Patient remains comfortable no new events Objective Vital Signs Date Time Temp Pulse Resp B/P Pulse Ox O2 Delivery O2 Flow Rate FiO2 05/30/17 11:54 98.3 88 18 93/48 99 05/30/17 11:10 30 Intake and Output 05/29/17 05/29/17 05/30/17 14:59 22:59 06:59 Intake Total 730 ml 960 ml Output Total 500 ml 450 ml Balance 230 ml 510 ml Exam PHYSICAL EXAMINATION GENERAL: Elderly lady on mechanical ventilation via tracheostomy VITAL SIGNS: see below. HEENT: Pupils equal, round, and reactive to light. Tracheostomy site clean and intact. CARDIAC: S1, S2, 1/6 systolic ejection murmur CHEST: Diminished air entry bilaterally. ABDOMEN: Mildly distended. Bowel sounds present no guarding or rebound EXTREMITIES: No cyanosis, clubbing edema +1 NEUROLOGIC: Generalized weakness Results/Medications Result Diagram: 05/30/17 0615 05/30/17 0615 Results 24 hrs Laboratory Tests Test 05/29/17 17:54 05/30/17 00:20 05/30/17 05:45 05/30/17 06:15 Bedside Glucose 117 122 126 White Blood Count 12.8 H Red Blood Count 2.96 L Hemoglobin 9.2 L Hematocrit 28.7 L Mean Corpuscular Volume 97.0 Mean Corpuscular Hemoglobin 31.1 Mean Corpuscular Hemoglobin Concent 32.1 Red Cell Distribution Width 22.0 H Platelet Count 156 Mean Platelet Volume 11.2 H Neutrophils % 82.7 H Lymphocytes % 6.0 L Monocytes % 7.4 Eosinophils % 1.0 Basophils % 0.3 Nucleated Red Blood Cells % 0.0 Neutrophils # (Manual) 11 H Lymphocytes # 0.8 Monocytes # 0.9 Eosinophils # 0.1 Basophils # 0.0 Nucleated Red Blood Cells # 0.0 Sodium Level 131 L Potassium Level 3.9 Chloride Level 95 L Carbon Dioxide Level 29 Anion Gap 11 Blood Urea Nitrogen 97 H Creatinine 2.14 H Glucose Level 99 Calcium Level 7.9 L Phosphorus Level 3.4 Magnesium Level 2.8 H Test 05/30/17 11:40 Bedside Glucose 132 Medications Current Medications Metoprolol Tartrate (Lopressor) 5 mg Q4H PRN IV HR>110 Hold SBP<110 Last administered on 04/20/17 17:36; Admin Dose 5 MG; Start 04/11/17 at 13:30 Miscellaneous Information 1 ea NOTE XX ; Start 04/11/17 at 16:30 Glucose (Glutose) 15 gm Q15M PRN PO DECREASED GLUCOSE Last administered on 05/07 03:27; Admin Dose 15 GM; Start 04/11/17 at 16:30 Glucose (Glutose) 22.5 gm Q15M PRN PO DECREASED GLUCOSE; Start 04/11/17 at 16: 30 Dextrose (D50w Syringe) 25 ml Q15M PRN IV DECREASED GLUCOSE Last administered on 04/12/17 23:56; Admin Dose 25 ML; Start 04/11/17 at 16:30 Dextrose (D50w Syringe) 50 ml Q15M PRN IV DECREASED GLUCOSE; Start 04/11/17 at 16:30 Glucagon (Glucagen) 1 mg Q15M PRN IM DECREASED GLUCOSE; Start 04/11/17 at 16:30 Glucose (Glutose) 15 gm Q15M PRN BUCCAL DECREASED GLUCOSE; Start 04/11/17 at 16 :30 Metoclopramide HCl (Reglan) 10 mg Q6 IV Last administered on 05/30/17 11:42; Admin Dose 10 MG; Start 04/12/17 at 18:00 Insulin Aspart (Novolog Insulin Pen) NOVOLOG *MILD* ALGORI... Q6H SC Last administered on 05/29/17 05:51; Admin Dose 1 UNIT; Start 04/15/17 at 00:00 IV Flush (NS 10 ml) 10 ml PRN PRN IV FLUSH LINE; Start 04/15/17 at 13:00 Amiodarone HCl (Cordarone) 200 mg BID GTB Last administered on 05/29/17 20:46 ; Admin Dose 200 MG; Start 04/16/17 at 13:00 Heparin Sodium (Porcine) (Heparin (5000 Units/0.5 ml)) 5,000 unit BID SC Last administered on 04/30/17 21:03; Admin Dose 5,000 UNIT; Start 04/18/17 at 16:22; Status Future Hold Citalopram Hydrobromide (Celexa) 20 mg DAILY NGT Last administered on 08:13; Admin Dose 20 MG; Start 04/19/17 at 09:00 Hydralazine HCl (Apresoline) 20 mg Q6H PRN IV sbp ABOVE 160 Last administered on 05/22/17 19:59; Admin Dose 20 MG; Start 04/18/17 at 18:30 Chlorhexidine Gluconate (Peridex) 15 ml BID MT Last administered on 05/30/17 08:12; Admin Dose 15 ML; Start 04/22/17 at 21:00 Vitamin A/Vitamin D (Vitamin A & D Oint) 1 applic TID TOP Last administered on 05/30/17 08:12; Admin Dose 1 APPLIC; Start 04/22/17 at 21:00 Vitamin A/Vitamin D (Vitamin A & D Oint) 1 applic TID PRN TOP DRYNESS Last administered on 04/22/17 15:29; Admin Dose 1 APPLIC; Start 04/22/17 at 15:00 Acetaminophen/ Hydrocodone Bitart ([place] (5/325)) 1 tab Q6H GTB Last administered on 05/30/17 10:11; Admin Dose 1 TAB; Start 04/22/17 at 21:30 Spironolactone (Aldactone) 25 mg DAILY NGT Last administered on 05/30/17 08:14 ; Admin Dose 25 MG; Start 04/25/17 at 19:00; Status Future hold Diltiazem HCl 5 mg 5 mg Q1H PRN IV HEART RATE GREATER THAN 120 Last administered on 04/29/17 06:17; Admin Dose 5 MG; Start 04/29/17 at 05:00 Sodium Chloride 1,000 ml @ 0 mls/hr Q0M IV Last administered on 05/01/17 03: 00; Admin Dose 1,000 MLS/HR; Start 05/01/17 at 03:00 Sodium Chloride 1,000 ml @ 0 mls/hr Q0M IV Last administered on 05/01/17 04: 00; Admin Dose 1,000 MLS/HR; Start 05/01/17 at 03:30 Diltiazem HCl (Cardizem-D5W 125 Mg/125 ml Drip) 125 ml @ 5 mls/hr TITRATE IV Last administered on 05/02/17 19:11; Admin Dose 5 MLS/HR; Start 05/02/17 at 19: 00 Metoprolol Tartrate (Lopressor) 25 mg QID GTB Last administered on 05/29/17 20 :46; Admin Dose 25 MG; Start 05/07/17 at 09:00 Furosemide (Lasix) 40 mg Q12 IV Last administered on 05/29/17 20:46; Admin Dose 40 MG; Start 05/08/17 at 09:00 Vitamin B Complex/ Vitamin C (Berocca) 1 cap DAILY PO Last administered on 05/30 08:12; Admin Dose 1 CAP; Start 05/13/17 at 09:00 Nystatin (Nystatin Susp) 5 ml QID PO Last administered on 05/30/17 08:12; Admin Dose 5 ML; Start 05/12/17 at 17:00 Aspirin (Aspirin) 81 mg DAILY NGT Last administered on 05/30/17 08:12; Admin Dose 81 MG; Start 05/19/17 at 09:00 Lansoprazole (Prevacid) 30 mg BID@,18 GTB Last administered on 05/30/17 05: 43; Admin Dose 30 MG; Start 05/20/17 at 18:00 Multivitamins (Multivitamin) 30 ml DAILY GTB Last administered on 05/30/17 08: 12; Admin Dose 30 ML; Start 05/24/17 at 09:00 Metolazone (Zaroxolyn) 5 mg DAILY PEG Last administered on 05/30/17 08:14; Admin Dose 5 MG; Start 05/27/17 at 11:00 Assessment/Plan Chief Complaint/Hosp Course Additional Assessment/Plan IMP: 1. VDRF 3. s/p Hypercapnic Respiratory Failure--likely due to critical illness myopathy/ neuropathy 4. s/p septic shock 5. Demand Ischemia 6. Cholecystitis 7. Encephalopathy toxic metabolic resolving 8. Leukocytosis improved. 9. Hyponatremia and end-stage renal failure 10. Anemia likely multifactorial 11. Aspiration foreign body, repeat chest CT shows no evidence of foreign body. RECS: 1. Vent support, trial of SIMV. hold off further weaning for now. 2. BDs 3. TFs/Free H2O 4. Hemodialysis per nephrology Discharge planning okay from pulmonary standpoint Problems: DARWIN CRAWFORD MD, [facility] May 30, 2017 12:14
--- NOTE | 2017-05-30 12:57 | PN ---
Date/Time of Note Date/Time of Note DATE: 05/30/17 TIME: 12:54 Assessment/Plan VTE Prophylaxis VTE Prophylaxis Intervention: other Lines/Catheters IV Catheter Type (from Nrsg): PICC Line Central line still needed: Yes Urinary Cath still in place: Yes Reason Cath still needed: urinary retention Assessment/Plan Chief Complaint/Hosp Course SUBJECTIVE DATA: no new events noted. no nausea, vomiting, new rash, hematuria, melena, tachypnea trach in place vent settings and cardiac strips were reviewed has a temp line in place for HD which has poor blood flow d/w at the bedside OBJECTIVE DATA: HEENT: Head is normocephalic. NECK: Supple. HEART: Regular rate. LUNGS: Diminished breath sounds at the base. ABDOMEN: Soft, nontender to palpation. No rebound or guarding. EXTREMITIES: Negative for clubbing, cyanosis. Positive edema. DERMATOLOGIC: No rashes. MUSCULOSKELETAL: No joint effusion. NEUROLOGIC: Unchanged exam. MEDICATIONS: Reviewed. LABORATORY AND DIAGNOSTIC DATA: Reviewed. 1. Ventilator-dependent respiratory failure. Vent settings reviewed. ABGs reviewed. Continue to monitor. Follow up with Pulmonary. there no foreign body aspiration per CT results 2. History of thyroid cancer with tracheomalacia. The patient is status post trach. Has been evaluated by ENT. Continue to monitor. 3. Nonoliguric acute kidney injury on top of chronic kidney disease. she has good uop and her access is not working well. will hold HD. continue diuretics. 4. Volume overload secondary to acute kidney injury and CHF. 5. Sepsis, status post shock secondary to aspiration pneumonia. The patient is completing antibiotic course. 6. Adrenal insufficiency. Continue current steroid regimen. 7. Acute encephalopathy, etiology is toxic metabolic, uremic, improving. Continue dialysis. Continue supportive care. 8. Hypothyroidism. Continue Synthroid. 9. Hyponatremia, improving. Continue dialysis. 10. Anemia. Monitor H and H levels. 11. Congestive heart failure. Continue medical management. 12. Left upper extremity deep vein thrombosis. The patient's anticoagulation is on hold secondary to recent gastrointestinal bleed. 13. Dysphagia, status post tube feeding. 14. Status post GI bleed. 15. Gastrointestinal and deep venous thrombosis prophylaxis. Problems: Exam/Review of Systems Vital Signs Vitals Vital Signs Date Time Temp Pulse Resp B/P Pulse Ox O2 Delivery O2 Flow Rate FiO2 05/30/17 12:36 68 05/30/17 11:54 98.3 18 93/48 99 05/30/17 11:10 30 Intake and Output 05/29/17 05/29/17 05/30/17 15:00 23:00 07:00 Intake Total 730 ml 960 ml Output Total 500 ml 450 ml Balance 230 ml 510 ml Results Result Diagram: 05/30/17 0615 05/30/17 0615 Results 24 hrs Laboratory Tests Test 05/29/17 17:54 05/30/17 00:20 05/30/17 05:45 05/30/17 06:15 Bedside Glucose 117 122 126 White Blood Count 12.8 H Red Blood Count 2.96 L Hemoglobin 9.2 L Hematocrit 28.7 L Mean Corpuscular Volume 97.0 Mean Corpuscular Hemoglobin 31.1 Mean Corpuscular Hemoglobin Concent 32.1 Red Cell Distribution Width 22.0 H Platelet Count 156 Mean Platelet Volume 11.2 H Neutrophils % 82.7 H Lymphocytes % 6.0 L Monocytes % 7.4 Eosinophils % 1.0 Basophils % 0.3 Nucleated Red Blood Cells % 0.0 Neutrophils # (Manual) 11 H Lymphocytes # 0.8 Monocytes # 0.9 Eosinophils # 0.1 Basophils # 0.0 Nucleated Red Blood Cells # 0.0 Sodium Level 131 L Potassium Level 3.9 Chloride Level 95 L Carbon Dioxide Level 29 Anion Gap 11 Blood Urea Nitrogen 97 H Creatinine 2.14 H Glucose Level 99 Calcium Level 7.9 L Phosphorus Level 3.4 Magnesium Level 2.8 H Test 05/30/17 11:40 Bedside Glucose 132 Medications Medications Current Medications Metoprolol Tartrate (Lopressor) 5 mg Q4H PRN IV HR>110 Hold SBP<110 Last administered on 04/20/17 17:36; Admin Dose 5 MG; Start 04/11/17 at 13:30 Miscellaneous Information 1 ea NOTE XX ; Start 04/11/17 at 16:30 Glucose (Glutose) 15 gm Q15M PRN PO DECREASED GLUCOSE Last administered on 05/07 03:27; Admin Dose 15 GM; Start 04/11/17 at 16:30 Glucose (Glutose) 22.5 gm Q15M PRN PO DECREASED GLUCOSE; Start 04/11/17 at 16: 30 Dextrose (D50w Syringe) 25 ml Q15M PRN IV DECREASED GLUCOSE Last administered on 04/12/17 23:56; Admin Dose 25 ML; Start 04/11/17 at 16:30 Dextrose (D50w Syringe) 50 ml Q15M PRN IV DECREASED GLUCOSE; Start 04/11/17 at 16:30 Glucagon (Glucagen) 1 mg Q15M PRN IM DECREASED GLUCOSE; Start 04/11/17 at 16:30 Glucose (Glutose) 15 gm Q15M PRN BUCCAL DECREASED GLUCOSE; Start 04/11/17 at 16 :30 Metoclopramide HCl (Reglan) 10 mg Q6 IV Last administered on 05/30/17 11:42; Admin Dose 10 MG; Start 04/12/17 at 18:00 Insulin Aspart (Novolog Insulin Pen) NOVOLOG *MILD* ALGORI... Q6H SC Last administered on 05/29/17 05:51; Admin Dose 1 UNIT; Start 04/15/17 at 00:00 IV Flush (NS 10 ml) 10 ml PRN PRN IV FLUSH LINE; Start 04/15/17 at 13:00 Amiodarone HCl (Cordarone) 200 mg BID GTB Last administered on 05/29/17 20:46 ; Admin Dose 200 MG; Start 04/16/17 at 13:00 Heparin Sodium (Porcine) (Heparin (5000 Units/0.5 ml)) 5,000 unit BID SC Last administered on 04/30/17 21:03; Admin Dose 5,000 UNIT; Start 04/18/17 at 16:22; Status Future Hold Citalopram Hydrobromide (Celexa) 20 mg DAILY NGT Last administered on 08:13; Admin Dose 20 MG; Start 04/19/17 at 09:00 Hydralazine HCl (Apresoline) 20 mg Q6H PRN IV sbp ABOVE 160 Last administered on 05/22/17 19:59; Admin Dose 20 MG; Start 04/18/17 at 18:30 Chlorhexidine Gluconate (Peridex) 15 ml BID MT Last administered on 05/30/17 08:12; Admin Dose 15 ML; Start 04/22/17 at 21:00 Vitamin A/Vitamin D (Vitamin A & D Oint) 1 applic TID TOP Last administered on 05/30/17 08:12; Admin Dose 1 APPLIC; Start 04/22/17 at 21:00 Vitamin A/Vitamin D (Vitamin A & D Oint) 1 applic TID PRN TOP DRYNESS Last administered on 04/22/17 15:29; Admin Dose 1 APPLIC; Start 04/22/17 at 15:00 Acetaminophen/ Hydrocodone Bitart ([place] (5/325)) 1 tab Q6H GTB Last administered on 05/30/17 10:11; Admin Dose 1 TAB; Start 04/22/17 at 21:30 Spironolactone (Aldactone) 25 mg DAILY NGT Last administered on 05/30/17 08:14 ; Admin Dose 25 MG; Start 04/25/17 at 19:00; Status Future hold Diltiazem HCl 5 mg 5 mg Q1H PRN IV HEART RATE GREATER THAN 120 Last administered on 04/29/17 06:17; Admin Dose 5 MG; Start 04/29/17 at 05:00 Sodium Chloride 1,000 ml @ 0 mls/hr Q0M IV Last administered on 05/01/17 03: 00; Admin Dose 1,000 MLS/HR; Start 05/01/17 at 03:00 Sodium Chloride 1,000 ml @ 0 mls/hr Q0M IV Last administered on 05/01/17 04: 00; Admin Dose 1,000 MLS/HR; Start 05/01/17 at 03:30 Diltiazem HCl (Cardizem-D5W 125 Mg/125 ml Drip) 125 ml @ 5 mls/hr TITRATE IV Last administered on 05/02/17 19:11; Admin Dose 5 MLS/HR; Start 05/02/17 at 19: 00 Metoprolol Tartrate (Lopressor) 25 mg QID GTB Last administered on 05/29/17 20 :46; Admin Dose 25 MG; Start 05/07/17 at 09:00 Furosemide (Lasix) 40 mg Q12 IV Last administered on 05/29/17 20:46; Admin Dose 40 MG; Start 05/08/17 at 09:00 Vitamin B Complex/ Vitamin C (Berocca) 1 cap DAILY PO Last administered on 05/30 08:12; Admin Dose 1 CAP; Start 05/13/17 at 09:00 Nystatin (Nystatin Susp) 5 ml QID PO Last administered on 05/30/17 08:12; Admin Dose 5 ML; Start 05/12/17 at 17:00 Aspirin (Aspirin) 81 mg DAILY NGT Last administered on 05/30/17 08:12; Admin Dose 81 MG; Start 05/19/17 at 09:00 Lansoprazole (Prevacid) 30 mg BID@ GTB Last administered on 05/30/17 05: 43; Admin Dose 30 MG; Start 05/20/17 at 18:00 Multivitamins (Multivitamin) 30 ml DAILY GTB Last administered on 05/30/17 08: 12; Admin Dose 30 ML; Start 05/24/17 at 09:00 Metolazone (Zaroxolyn) 5 mg DAILY PEG Last administered on 05/30/17 08:14; Admin Dose 5 MG; Start 05/27/17 at 11:00 DERECK QUINTERO DO May 30, 2017 12:57
--- NOTE | 2017-05-30 14:44 | CONS ---
Date/Time of Note Date/Time of Note DATE: 05/30/17 TIME: 14:42 Assessment/Plan Assessment/Plan Chief Complaint/Hosp Course SUBJECTIVE: No acute events overnight. The patient is awake, looks comfortable. No fevers. Denies pain, discomfort. Indwelling: Trach, bag Latif, right femoral Amrit catheter. PHYSICAL EXAMINATION: This is a fragile, chronically ill- appearing, elderly woman who is awake, in no distress. HEENT: Head atraumatic, normocephalic. Sclerae anicteric. Buccal mucosa dry. NECK: Supple. Tracheostomy present. CHEST: Chest rise symmetric. Breath sounds diminished at bases. HEART: S1, S2. ABDOMEN: Soft. Bowel sounds present. EXTREMITIES: Without cyanosis. SKIN: Positive for anasarca. ASSESSMENT: 1. Status post septic shock, urinary tract infection, pneumonia. 2. Oxylb-ai-qcifdix respiratory failure. 3. Status post fungemia. 4. Vnwsk-hs-[id number] kidney disease. 5. History of Clostridium difficile colitis. 6. Left upper extremity deep vein thrombosis. PLAN: The patient remains stable off antibiotics, continue present care, vent support per pulmonary, repeat cx's prn OLIVIA RN Problems: Consultation Date/Type/Reason Admit Date/Time Apr 11, 2017 at 11:28 Initial Consult Date 04/12/17 Type of Consultation: id Referring Provider: NINA MACIEL DO Exam/Review of Systems Vital Signs Vitals Vital Signs Date Time Temp Pulse Resp B/P Pulse Ox O2 Delivery O2 Flow Rate FiO2 05/30/17 13:20 73 11 100 30 05/30/17 11:54 98.3 93/48 Intake and Output 05/29/17 05/29/17 05/30/17 15:00 23:00 07:00 Intake Total 730 ml 960 ml Output Total 500 ml 450 ml Balance 230 ml 510 ml Results Result Diagram: 05/30/17 0615 05/30/17 0615 Results 24 hrs Laboratory Tests Test 05/29/17 17:54 05/30/17 00:20 05/30/17 05:45 05/30/17 06:15 Bedside Glucose 117 122 126 White Blood Count 12.8 H Red Blood Count 2.96 L Hemoglobin 9.2 L Hematocrit 28.7 L Mean Corpuscular Volume 97.0 Mean Corpuscular Hemoglobin 31.1 Mean Corpuscular Hemoglobin Concent 32.1 Red Cell Distribution Width 22.0 H Platelet Count 156 Mean Platelet Volume 11.2 H Neutrophils % 82.7 H Lymphocytes % 6.0 L Monocytes % 7.4 Eosinophils % 1.0 Basophils % 0.3 Nucleated Red Blood Cells % 0.0 Neutrophils # (Manual) 11 H Lymphocytes # 0.8 Monocytes # 0.9 Eosinophils # 0.1 Basophils # 0.0 Nucleated Red Blood Cells # 0.0 Sodium Level 131 L Potassium Level 3.9 Chloride Level 95 L Carbon Dioxide Level 29 Anion Gap 11 Blood Urea Nitrogen 97 H Creatinine 2.14 H Glucose Level 99 Calcium Level 7.9 L Phosphorus Level 3.4 Magnesium Level 2.8 H Test 05/30/17 11:40 Bedside Glucose 132 Medications Medications Current Medications Metoprolol Tartrate (Lopressor) 5 mg Q4H PRN IV HR>110 Hold SBP<110 Last administered on 04/20/17 17:36; Admin Dose 5 MG; Start 04/11/17 at 13:30 Miscellaneous Information 1 ea NOTE XX ; Start 04/11/17 at 16:30 Glucose (Glutose) 15 gm Q15M PRN PO DECREASED GLUCOSE Last administered on 05/07 03:27; Admin Dose 15 GM; Start 04/11/17 at 16:30 Glucose (Glutose) 22.5 gm Q15M PRN PO DECREASED GLUCOSE; Start 04/11/17 at 16: 30 Dextrose (D50w Syringe) 25 ml Q15M PRN IV DECREASED GLUCOSE Last administered on 04/12/17 23:56; Admin Dose 25 ML; Start 04/11/17 at 16:30 Dextrose (D50w Syringe) 50 ml Q15M PRN IV DECREASED GLUCOSE; Start 04/11/17 at 16:30 Glucagon (Glucagen) 1 mg Q15M PRN IM DECREASED GLUCOSE; Start 04/11/17 at 16:30 Glucose (Glutose) 15 gm Q15M PRN BUCCAL DECREASED GLUCOSE; Start 04/11/17 at 16 :30 Metoclopramide HCl (Reglan) 10 mg Q6 IV Last administered on 05/30/17 11:42; Admin Dose 10 MG; Start 04/12/17 at 18:00 Insulin Aspart (Novolog Insulin Pen) NOVOLOG *MILD* ALGORI... Q6H SC Last administered on 05/29/17 05:51; Admin Dose 1 UNIT; Start 04/15/17 at 00:00 IV Flush (NS 10 ml) 10 ml PRN PRN IV FLUSH LINE; Start 04/15/17 at 13:00 Amiodarone HCl (Cordarone) 200 mg BID GTB Last administered on 05/29/17 20:46 ; Admin Dose 200 MG; Start 04/16/17 at 13:00 Heparin Sodium (Porcine) (Heparin (5000 Units/0.5 ml)) 5,000 unit BID SC Last administered on 04/30/17 21:03; Admin Dose 5,000 UNIT; Start 04/18/17 at 16:22; Status Future Hold Citalopram Hydrobromide (Celexa) 20 mg DAILY NGT Last administered on 08:13; Admin Dose 20 MG; Start 04/19/17 at 09:00 Hydralazine HCl (Apresoline) 20 mg Q6H PRN IV sbp ABOVE 160 Last administered on 05/22/17 19:59; Admin Dose 20 MG; Start 04/18/17 at 18:30 Chlorhexidine Gluconate (Peridex) 15 ml BID MT Last administered on 05/30/17 08:12; Admin Dose 15 ML; Start 04/22/17 at 21:00 Vitamin A/Vitamin D (Vitamin A & D Oint) 1 applic TID TOP Last administered on 05/30/17 13:58; Admin Dose 1 APPLIC; Start 04/22/17 at 21:00 Vitamin A/Vitamin D (Vitamin A & D Oint) 1 applic TID PRN TOP DRYNESS Last administered on 04/22/17 15:29; Admin Dose 1 APPLIC; Start 04/22/17 at 15:00 Acetaminophen/ Hydrocodone Bitart ([place] (5/325)) 1 tab Q6H GTB Last administered on 05/30/17 10:11; Admin Dose 1 TAB; Start 04/22/17 at 21:30 Spironolactone (Aldactone) 25 mg DAILY NGT Last administered on 05/30/17 08:14 ; Admin Dose 25 MG; Start 04/25/17 at 19:00; Status Future hold Diltiazem HCl 5 mg 5 mg Q1H PRN IV HEART RATE GREATER THAN 120 Last administered on 04/29/17 06:17; Admin Dose 5 MG; Start 04/29/17 at 05:00 Sodium Chloride 1,000 ml @ 0 mls/hr Q0M IV Last administered on 05/01/17 03: 00; Admin Dose 1,000 MLS/HR; Start 05/01/17 at 03:00 Sodium Chloride 1,000 ml @ 0 mls/hr Q0M IV Last administered on 05/01/17 04: 00; Admin Dose 1,000 MLS/HR; Start 05/01/17 at 03:30 Diltiazem HCl (Cardizem-D5W 125 Mg/125 ml Drip) 125 ml @ 5 mls/hr TITRATE IV Last administered on 05/02/17 19:11; Admin Dose 5 MLS/HR; Start 05/02/17 at 19: 00 Metoprolol Tartrate (Lopressor) 25 mg QID GTB Last administered on 05/29/17 20 :46; Admin Dose 25 MG; Start 05/07/17 at 09:00 Furosemide (Lasix) 40 mg Q12 IV Last administered on 05/29/17 20:46; Admin Dose 40 MG; Start 05/08/17 at 09:00 Vitamin B Complex/ Vitamin C (Berocca) 1 cap DAILY PO Last administered on 05/30 08:12; Admin Dose 1 CAP; Start 05/13/17 at 09:00 Nystatin (Nystatin Susp) 5 ml QID PO Last administered on 05/30/17 13:58; Admin Dose 5 ML; Start 05/12/17 at 17:00 Aspirin (Aspirin) 81 mg DAILY NGT Last administered on 05/30/17 08:12; Admin Dose 81 MG; Start 05/19/17 at 09:00 Lansoprazole (Prevacid) 30 mg BID@ GTB Last administered on 05/30/17 05: 43; Admin Dose 30 MG; Start 05/20/17 at 18:00 Multivitamins (Multivitamin) 30 ml DAILY GTB Last administered on 05/30/17 08: 12; Admin Dose 30 ML; Start 05/24/17 at 09:00 Metolazone (Zaroxolyn) 5 mg DAILY PEG Last administered on 05/30/17 08:14; Admin Dose 5 MG; Start 05/27/17 at 11:00 LORETO MCKEON NP May 30, 2017 14:44
--- NOTE | 2017-05-30 18:22 | CONS ---
Date/Time of Note Date/Time of Note DATE: 05/30/17 TIME: 18:21 Consult Date/Type/Reason Admit Date/Time Apr 11, 2017 at 11:28 Initial Consult Date 04/12/17 Type of Consultation: cardiology Ordering Provider: NINA MACIEL DO Subjective CARDIOLOGY FOLLOW UP NOTE: D/W staff and rhythm was reviewed. pt remains in NSR. no afib overnight no chest pain or pressure or palpitations. pt still s/p trach on vent on tele. s/p transfusion on 05/14/17 and getting transfused again 05/26/17 Objective: General: s/p trach on vent HEENT: NC/AT. . oropharynx with multiple lesions. . NECK: NO JVD. no stridor. s/p trach on vent CV: RRR. systolic ejection murmur; no gallop or rubs. PULM: + mild rhonchi. no wheezes. GI: SOFT, NT, ND, no rebound or guarding s/p PEG Extremity: 1-2+ B/L LE edema. no clubbing. neuro: sleeping comfortably Psych: calm rectal: deferred Derm: multiple echymosis : S/P mims catheter in plac Objective Vital Signs Date Time Temp Pulse Resp B/P Pulse Ox O2 Delivery O2 Flow Rate FiO2 05/30/17 17:30 77 13 100 30 05/30/17 14:52 98.4 98/51 Intake and Output 05/29/17 05/29/17 05/30/17 15:00 23:00 07:00 Intake Total 730 ml 960 ml Output Total 500 ml 450 ml Balance 230 ml 510 ml Results/Medications Result Diagram: 05/30/17 0615 05/30/17 0615 Results 24 hrs Laboratory Tests Test 05/30/17 00:20 05/30/17 05:45 05/30/17 06:15 05/30/17 11:40 Bedside Glucose 122 126 132 White Blood Count 12.8 H Red Blood Count 2.96 L Hemoglobin 9.2 L Hematocrit 28.7 L Mean Corpuscular Volume 97.0 Mean Corpuscular Hemoglobin 31.1 Mean Corpuscular Hemoglobin Concent 32.1 Red Cell Distribution Width 22.0 H Platelet Count 156 Mean Platelet Volume 11.2 H Neutrophils % 82.7 H Lymphocytes % 6.0 L Monocytes % 7.4 Eosinophils % 1.0 Basophils % 0.3 Nucleated Red Blood Cells % 0.0 Neutrophils # (Manual) 11 H Lymphocytes # 0.8 Monocytes # 0.9 Eosinophils # 0.1 Basophils # 0.0 Nucleated Red Blood Cells # 0.0 Sodium Level 131 L Potassium Level 3.9 Chloride Level 95 L Carbon Dioxide Level 29 Anion Gap 11 Blood Urea Nitrogen 97 H Creatinine 2.14 H Glucose Level 99 Calcium Level 7.9 L Phosphorus Level 3.4 Magnesium Level 2.8 H Test 05/30/17 17:18 Bedside Glucose 140 Medications Current Medications Metoprolol Tartrate (Lopressor) 5 mg Q4H PRN IV HR>110 Hold SBP<110 Last administered on 04/20/17 17:36; Admin Dose 5 MG; Start 04/11/17 at 13:30 Miscellaneous Information 1 ea NOTE XX ; Start 04/11/17 at 16:30 Glucose (Glutose) 15 gm Q15M PRN PO DECREASED GLUCOSE Last administered on 05/07 03:27; Admin Dose 15 GM; Start 04/11/17 at 16:30 Glucose (Glutose) 22.5 gm Q15M PRN PO DECREASED GLUCOSE; Start 04/11/17 at 16: 30 Dextrose (D50w Syringe) 25 ml Q15M PRN IV DECREASED GLUCOSE Last administered on 04/12/17 23:56; Admin Dose 25 ML; Start 04/11/17 at 16:30 Dextrose (D50w Syringe) 50 ml Q15M PRN IV DECREASED GLUCOSE; Start 04/11/17 at 16:30 Glucagon (Glucagen) 1 mg Q15M PRN IM DECREASED GLUCOSE; Start 04/11/17 at 16:30 Glucose (Glutose) 15 gm Q15M PRN BUCCAL DECREASED GLUCOSE; Start 04/11/17 at 16 :30 Metoclopramide HCl (Reglan) 10 mg Q6 IV Last administered on 05/30/17 17:19; Admin Dose 10 MG; Start 04/12/17 at 18:00 Insulin Aspart (Novolog Insulin Pen) NOVOLOG *MILD* ALGORI... Q6H SC Last administered on 05/29/17 05:51; Admin Dose 1 UNIT; Start 04/15/17 at 00:00 IV Flush (NS 10 ml) 10 ml PRN PRN IV FLUSH LINE; Start 04/15/17 at 13:00 Amiodarone HCl (Cordarone) 200 mg BID GTB Last administered on 05/29/17 20:46 ; Admin Dose 200 MG; Start 04/16/17 at 13:00 Heparin Sodium (Porcine) (Heparin (5000 Units/0.5 ml)) 5,000 unit BID SC Last administered on 04/30/17 21:03; Admin Dose 5,000 UNIT; Start 04/18/17 at 16:22; Status Future Hold Citalopram Hydrobromide (Celexa) 20 mg DAILY NGT Last administered on 08:13; Admin Dose 20 MG; Start 04/19/17 at 09:00 Hydralazine HCl (Apresoline) 20 mg Q6H PRN IV sbp ABOVE 160 Last administered on 05/22/17 19:59; Admin Dose 20 MG; Start 04/18/17 at 18:30 Chlorhexidine Gluconate (Peridex) 15 ml BID MT Last administered on 05/30/17 08:12; Admin Dose 15 ML; Start 04/22/17 at 21:00 Vitamin A/Vitamin D (Vitamin A & D Oint) 1 applic TID TOP Last administered on 05/30/17 13:58; Admin Dose 1 APPLIC; Start 04/22/17 at 21:00 Vitamin A/Vitamin D (Vitamin A & D Oint) 1 applic TID PRN TOP DRYNESS Last administered on 04/22/17 15:29; Admin Dose 1 APPLIC; Start 04/22/17 at 15:00 Acetaminophen/ Hydrocodone Bitart ([place] (5/325)) 1 tab Q6H GTB Last administered on 05/30/17 15:33; Admin Dose 1 TAB; Start 04/22/17 at 21:30 Spironolactone (Aldactone) 25 mg DAILY NGT Last administered on 05/30/17 08:14 ; Admin Dose 25 MG; Start 04/25/17 at 19:00; Status Future hold Diltiazem HCl 5 mg 5 mg Q1H PRN IV HEART RATE GREATER THAN 120 Last administered on 04/29/17 06:17; Admin Dose 5 MG; Start 04/29/17 at 05:00 Sodium Chloride 1,000 ml @ 0 mls/hr Q0M IV Last administered on 05/01/17 03: 00; Admin Dose 1,000 MLS/HR; Start 05/01/17 at 03:00 Sodium Chloride 1,000 ml @ 0 mls/hr Q0M IV Last administered on 05/01/17 04: 00; Admin Dose 1,000 MLS/HR; Start 05/01/17 at 03:30 Diltiazem HCl (Cardizem-D5W 125 Mg/125 ml Drip) 125 ml @ 5 mls/hr TITRATE IV Last administered on 05/02/17 19:11; Admin Dose 5 MLS/HR; Start 05/02/17 at 19: 00 Metoprolol Tartrate (Lopressor) 25 mg QID GTB Last administered on 05/29/17 20 :46; Admin Dose 25 MG; Start 05/07/17 at 09:00 Furosemide (Lasix) 40 mg Q12 IV Last administered on 05/29/17 20:46; Admin Dose 40 MG; Start 05/08/17 at 09:00 Vitamin B Complex/ Vitamin C (Berocca) 1 cap DAILY PO Last administered on 05/30 08:12; Admin Dose 1 CAP; Start 05/13/17 at 09:00 Nystatin (Nystatin Susp) 5 ml QID PO Last administered on 05/30/17 17:19; Admin Dose 5 ML; Start 05/12/17 at 17:00 Aspirin (Aspirin) 81 mg DAILY NGT Last administered on 05/30/17 08:12; Admin Dose 81 MG; Start 05/19/17 at 09:00 Lansoprazole (Prevacid) 30 mg BID@06,18 GTB Last administered on 05/30/17 17: 19; Admin Dose 30 MG; Start 05/20/17 at 18:00 Multivitamins (Multivitamin) 30 ml DAILY GTB Last administered on 05/30/17 08: 12; Admin Dose 30 ML; Start 05/24/17 at 09:00 Metolazone (Zaroxolyn) 5 mg DAILY PEG Last administered on 05/30/17 08:14; Admin Dose 5 MG; Start 05/27/17 at 11:00 Assessment/Plan Chief Complaint/Hosp Course 1. acute on chronic hypoxemic respiratory failure: 2. S/P NSTEMI: due to demand ischemia. 3. CHF/ fluid overload: due to diastolic heart failure 4. moderate 5. Arrhythmia and P afib, frequent PVC: currently in NSR. 6. ANEMIA: s/p multiple transfusion 7. s/p pneumonia, . 8. s/p sepsis and shock: BP is stable now. 9. Anasarca 10. s/p cardiopulm arrest due to resp failure 11. renal failure 12. coagulopathy Rec: cont resp care as per PULM Team. correct lytes prn. CONT betablocker as tolerated. . cont thyroid supplement . cont tele monitoring HD/ ultrafiltration will be deferred to renal. transfuse prn cont low dose ASA 81 mg only due to recurrent anemia. THANK YOU. Problems: FRANCISCO BLACKWOOD MD May 30, 2017 18:22
[2017-05-31] VITALS (25 sets, daily range): BP systolic 106–130; BP diastolic 55–67; PULSE 64–75; RESP 9–27
[2017-05-31] MEDS: METOCLOPRAMIDE 10 MG INJ IV SCH ×4 (00:55→17:25)
[2017-05-31] MEDS: INSULIN ASPART [NOVOLOG] 3 ML PEN SC SCH ×4 (00:56→17:28)
[2017-05-31] MEDS: LEVALBUTEROL (HFA) 15 GM INHALER INH SCH ×4 (02:03→19:50)
[2017-05-31] MEDS: LANSOPRAZOLE 30 MG CAP GTB SCH ×2 (06:39→17:26)
[2017-05-31] MEDS: HYDROCODONE/APAP (5/325) TAB GTB SCH ×5 (06:44→22:11)
[2017-05-31 07:14] LABS: BASOPHILS % 0.2 % (0.0-2.0); EOSINOPHILS # 0.1 10^3/ul (0.0-0.5); HEMATOCRIT 29.8 % (37.0-47.0); HEMOGLOBIN 9.4 g/dl (12.0-16.0); LYMPHOCYTES # 0.8 10^3/ul (0.8-2.9); LYMPHOCYTES % 7.5 % (15.0-51.0); MEAN CORPUSCULAR HEMOGLOBIN 30.4 pg (29.0-33.0); MEAN CORPUSCULAR HGB CONC 31.5 g/dl (32.0-37.0); MEAN CORPUSCULAR VOLUME 96.4 fl (82.0-101.0); MEAN PLATELET VOLUME 11.1 fl (7.4-10.4); MONOCYTE # 0.8 10^3/ul (0.3-0.9); MONOCYTES % 7.9 % (0.0-11.0); NEUTROPHILS % 79.3 % (39.0-77.0); PLATELET COUNT 182 10^3/UL (140-415); RED BLOOD COUNT 3.09 10^6/ul (4.20-5.40); RED CELL DISTRIBUTION WIDTH 21.7 % (11.5-14.5); WHITE BLOOD COUNT 10.4 10^3/ul (4.8-10.8)
[2017-05-31 07:37] LABS: CALCIUM 8.1 mg/dl (8.4-10.2); CREATININE 2.33 mg/dl (0.44-1.00); PHOSPHORUS 3.7 mg/dl (2.5-4.9); POTASSIUM 4.1 mmol/L (3.5-5.1)
[2017-05-31] MEDS: LEVOTHYROXINE 100 MCG TAB GTB SCH (07:52)
[2017-05-31] MEDS: CHLORHEXIDINE GLUCONATE 15 ML UD CUP MT SCH ×2 (09:53→21:12)
[2017-05-31] MEDS: FUROSEMIDE 40 MG INJ IV SCH ×2 (09:54→21:16)
[2017-05-31] MEDS: NYSTATIN SUSP 5 ML CUP PO SCH ×4 (09:54→21:12)
[2017-05-31] MEDS: METOPROLOL 25 MG TAB GTB SCH ×4 (09:55→21:16)
[2017-05-31] MEDS: CITALOPRAM 20 MG TAB NGT SCH (09:55)
[2017-05-31] MEDS: ASPIRIN 81 MG TAB NGT SCH (09:55)
[2017-05-31] MEDS: METOLAZONE 5 MG TAB PEG SCH (09:55)
[2017-05-31] MEDS: MULTIVITAMINS 30 ML CUP GTB SCH (09:56)
[2017-05-31] MEDS: SPIRONOLACTONE 25 MG TAB NGT SCH (09:56)
[2017-05-31] MEDS: AMIODARONE 200 MG TAB GTB SCH ×2 (09:56→21:14)
[2017-05-31] MEDS: VITAMIN A & D 5 GM OINT PACKET TOP SCH ×3 (09:57→21:12)
[2017-05-31] MEDS: VITAMIN B COMPLEX/VIT C CAP PO SCH (10:07)
--- NOTE | 2017-05-31 11:36 | PN ---
Date/Time of Note Date/Time of Note DATE: 05/31/17 TIME: 11:32 Assessment/Plan VTE Prophylaxis VTE Prophylaxis Intervention: other Lines/Catheters IV Catheter Type (from Nrsg): RT ANABELLE HAY Central line still needed: Yes Urinary Cath still in place: Yes Reason Cath still needed: urinary retention Assessment/Plan Chief Complaint/Hosp Course SUBJECTIVE DATA: no new events noted. no nausea, vomiting, new rash, hematuria, melena, tachypnea trach in place vent settings and cardiac strips were reviewed has a temp line in place for HD which has poor blood flow d/w at the bedside OBJECTIVE DATA: HEENT: Head is normocephalic. NECK: Supple. HEART: Regular rate. LUNGS: Diminished breath sounds at the base. ABDOMEN: Soft, nontender to palpation. No rebound or guarding. EXTREMITIES: Negative for clubbing, cyanosis. Positive edema. DERMATOLOGIC: No rashes. MUSCULOSKELETAL: No joint effusion. NEUROLOGIC: Unchanged exam. MEDICATIONS: Reviewed. LABORATORY AND DIAGNOSTIC DATA: Reviewed. 1. Ventilator-dependent respiratory failure. Vent settings reviewed. ABGs reviewed. Continue to monitor. Follow up with Pulmonary. there no foreign body aspiration per CT results 2. History of thyroid cancer with tracheomalacia. The patient is status post trach. Has been evaluated by ENT. Continue to monitor. 3. Nonoliguric acute kidney injury on top of chronic kidney disease. she has good uop and her access is not working well. will hold HD. continue diuretics. 4. Volume overload secondary to acute kidney injury and CHF. 5. Sepsis, status post shock secondary to aspiration pneumonia. The patient is completing antibiotic course. 6. Adrenal insufficiency. Continue current steroid regimen. 7. Acute encephalopathy, etiology is toxic metabolic, uremic, improving. Continue dialysis. Continue supportive care. 8. Hypothyroidism. Continue Synthroid. 9. Hyponatremia, improving. Continue dialysis. 10. Anemia. Monitor H and H levels. 11. Congestive heart failure. Continue medical management. 12. Left upper extremity deep vein thrombosis. The patient's anticoagulation is on hold secondary to recent gastrointestinal bleed. 13. Dysphagia, status post tube feeding. 14. Status post GI bleed. 15. Gastrointestinal and deep venous thrombosis prophylaxis. Problems: Exam/Review of Systems Vital Signs Vitals Vital Signs Date Time Temp Pulse Resp B/P Pulse Ox O2 Delivery O2 Flow Rate FiO2 05/31/17 08:44 75 05/31/17 08:17 97.7 18 113/61 100 05/31/17 05:34 30 Intake and Output 05/30/17 05/30/17 05/31/17 15:00 23:00 07:00 Intake Total 730 ml 730 ml Output Total 200 ml 400 ml Balance 530 ml 330 ml Results Result Diagram: 05/31/17 0631 05/31/17 0631 Results 24 hrs Laboratory Tests Test 05/30/17 11:40 05/30/17 17:18 05/31/17 00:39 05/31/17 06:31 Bedside Glucose 132 140 154 White Blood Count 10.4 Red Blood Count 3.09 L Hemoglobin 9.4 L Hematocrit 29.8 L Mean Corpuscular Volume 96.4 Mean Corpuscular Hemoglobin 30.4 Mean Corpuscular Hemoglobin Concent 31.5 L Red Cell Distribution Width 21.7 H Platelet Count 182 Mean Platelet Volume 11.1 H Neutrophils % 79.3 H Lymphocytes % 7.5 L Monocytes % 7.9 Eosinophils % 1.0 Basophils % 0.2 Nucleated Red Blood Cells % 0.0 Neutrophils # (Manual) 8 H Lymphocytes # 0.8 Monocytes # 0.8 Eosinophils # 0.1 Basophils # 0.0 Nucleated Red Blood Cells # 0.0 Sodium Level 133 L Potassium Level 4.1 Chloride Level 92 L Carbon Dioxide Level 30 Anion Gap 15 Blood Urea Nitrogen 106 H Creatinine 2.33 H Glucose Level 124 Calcium Level 8.1 L Phosphorus Level 3.7 Magnesium Level 3.0 H Test 05/31/17 06:43 Bedside Glucose 149 Medications Medications Current Medications Metoprolol Tartrate (Lopressor) 5 mg Q4H PRN IV HR>110 Hold SBP<110 Last administered on 04/20/17 17:36; Admin Dose 5 MG; Start 04/11/17 at 13:30 Miscellaneous Information 1 ea NOTE XX ; Start 04/11/17 at 16:30 Glucose (Glutose) 15 gm Q15M PRN PO DECREASED GLUCOSE Last administered on 05/07 03:27; Admin Dose 15 GM; Start 04/11/17 at 16:30 Glucose (Glutose) 22.5 gm Q15M PRN PO DECREASED GLUCOSE; Start 04/11/17 at 16: 30 Dextrose (D50w Syringe) 25 ml Q15M PRN IV DECREASED GLUCOSE Last administered on 04/12/17 23:56; Admin Dose 25 ML; Start 04/11/17 at 16:30 Dextrose (D50w Syringe) 50 ml Q15M PRN IV DECREASED GLUCOSE; Start 04/11/17 at 16:30 Glucagon (Glucagen) 1 mg Q15M PRN IM DECREASED GLUCOSE; Start 04/11/17 at 16:30 Glucose (Glutose) 15 gm Q15M PRN BUCCAL DECREASED GLUCOSE; Start 04/11/17 at 16 :30 Metoclopramide HCl (Reglan) 10 mg Q6 IV Last administered on 05/31/17 06:38; Admin Dose 10 MG; Start 04/12/17 at 18:00 Insulin Aspart (Novolog Insulin Pen) NOVOLOG *MILD* ALGORI... Q6H SC Last administered on 05/31/17 06:46; Admin Dose 1 UNIT; Start 04/15/17 at 00:00 IV Flush (NS 10 ml) 10 ml PRN PRN IV FLUSH LINE; Start 04/15/17 at 13:00 Amiodarone HCl (Cordarone) 200 mg BID GTB Last administered on 05/31/17 09:56 ; Admin Dose 200 MG; Start 04/16/17 at 13:00 Heparin Sodium (Porcine) (Heparin (5000 Units/0.5 ml)) 5,000 unit BID SC Last administered on 04/30/17 21:03; Admin Dose 5,000 UNIT; Start 04/18/17 at 16:22; Status Future Hold Citalopram Hydrobromide (Celexa) 20 mg DAILY NGT Last administered on 09:55; Admin Dose 20 MG; Start 04/19/17 at 09:00 Hydralazine HCl (Apresoline) 20 mg Q6H PRN IV sbp ABOVE 160 Last administered on 05/22/17 19:59; Admin Dose 20 MG; Start 04/18/17 at 18:30 Chlorhexidine Gluconate (Peridex) 15 ml BID MT Last administered on 05/31/17 09:53; Admin Dose 15 ML; Start 04/22/17 at 21:00 Vitamin A/Vitamin D (Vitamin A & D Oint) 1 applic TID TOP Last administered on 05/31/17 09:57; Admin Dose 1 APPLIC; Start 04/22/17 at 21:00 Vitamin A/Vitamin D (Vitamin A & D Oint) 1 applic TID PRN TOP DRYNESS Last administered on 04/22/17 15:29; Admin Dose 1 APPLIC; Start 04/22/17 at 15:00 Acetaminophen/ Hydrocodone Bitart ([place] (5/325)) 1 tab Q6H GTB Last administered on 05/31/17 10:07; Admin Dose 1 TAB; Start 04/22/17 at 21:30 Spironolactone (Aldactone) 25 mg DAILY NGT Last administered on 05/31/17 09:56 ; Admin Dose 25 MG; Start 04/25/17 at 19:00; Status Future hold Diltiazem HCl 5 mg 5 mg Q1H PRN IV HEART RATE GREATER THAN 120 Last administered on 04/29/17 06:17; Admin Dose 5 MG; Start 04/29/17 at 05:00 Sodium Chloride 1,000 ml @ 0 mls/hr Q0M IV Last administered on 05/01/17 03: 00; Admin Dose 1,000 MLS/HR; Start 05/01/17 at 03:00 Sodium Chloride 1,000 ml @ 0 mls/hr Q0M IV Last administered on 05/01/17 04: 00; Admin Dose 1,000 MLS/HR; Start 05/01/17 at 03:30 Diltiazem HCl (Cardizem-D5W 125 Mg/125 ml Drip) 125 ml @ 5 mls/hr TITRATE IV Last administered on 05/02/17 19:11; Admin Dose 5 MLS/HR; Start 05/02/17 at 19: 00 Metoprolol Tartrate (Lopressor) 25 mg QID GTB Last administered on 05/31/17 09 :55; Admin Dose 25 MG; Start 05/07/17 at 09:00 Furosemide (Lasix) 40 mg Q12 IV Last administered on 05/31/17 09:54; Admin Dose 40 MG; Start 05/08/17 at 09:00 Vitamin B Complex/ Vitamin C (Berocca) 1 cap DAILY PO Last administered on 05/31 10:07; Admin Dose 1 CAP; Start 05/13/17 at 09:00 Nystatin (Nystatin Susp) 5 ml QID PO Last administered on 05/31/17 09:54; Admin Dose 5 ML; Start 05/12/17 at 17:00 Aspirin (Aspirin) 81 mg DAILY NGT Last administered on 05/31/17 09:55; Admin Dose 81 MG; Start 05/19/17 at 09:00 Lansoprazole (Prevacid) 30 mg BID@,18 GTB Last administered on 05/31/17 06: 39; Admin Dose 30 MG; Start 05/20/17 at 18:00 Multivitamins (Multivitamin) 30 ml DAILY GTB Last administered on 05/31/17 09: 56; Admin Dose 30 ML; Start 05/24/17 at 09:00 Metolazone (Zaroxolyn) 5 mg DAILY PEG Last administered on 05/31/17 09:55; Admin Dose 5 MG; Start 05/27/17 at 11:00 DERECK QUINTERO DO May 31, 2017 11:36
--- NOTE | 2017-05-31 13:08 | CONS ---
Date/Time of Note Date/Time of Note DATE: 05/31/17 TIME: 13:06 Assessment/Plan Assessment/Plan Additional Assessment/Plan Ventilator settings are SIMV of 8, tidal volume 500, PEEP of 5, 30% FiO2 with pressure support of 10. Assessment and recommendations; 1. Patient admitted for severe sepsis status post treatment. 2. Chronic respiratory failure. 3. Profound muscular weakness, precluding weaning from mechanical ventilation. 4. Anemia. 5. Remote history of glossal cancer. 6. Renal failure, on hemodialysis. Continue current treatment. Consultation Date/Type/Reason Admit Date/Time Apr 11, 2017 at 11:28 Initial Consult Date 05/01/17 Type of Consultation: Pulmonary Referring Provider: NINA MACIEL DO 24 HR Interval Summary Free Text/Dictation Patient condition remains stable. Remains awake and alert. Still exhibiting profound muscular weakness . Has remained hemodynamically stable. General exam; elderly woman, on ventilator via tracheostomy, currently in no distress. Awake and alert. Exam/Review of Systems Vital Signs Vitals Vital Signs Date Time Temp Pulse Resp B/P Pulse Ox O2 Delivery O2 Flow Rate FiO2 05/31/17 12:44 65 05/31/17 11:38 97.4 18 106/56 100 05/31/17 08:00 35 Intake and Output 05/30/17 05/30/17 05/31/17 14:59 22:59 06:59 Intake Total 730 ml 730 ml Output Total 200 ml 400 ml Balance 530 ml 330 ml Exam HEENT exam; supple neck, no JVD. No lymphadenopathy. Midline trachea. No thyromegaly. Tracheostomy in place. Patient has fair dentition. Chest exam; clear to auscultation. S1-S2 audible, no murmurs. Regular rhythm. Abdomen exam; soft, G-tube in place. Nontender. Bowel sounds audible. No organomegaly. Extremity exam; 2+ pitting edema involving both lower extremities. PREVENTIVE MAINTENANCE COORDINATOR exam; patient is awake alert follows commands moves all 4 extremities on command but still exhibiting profound muscular weakness. Results Result Diagram: 05/31/1731 05/31/1731 Results 24 hrs Laboratory Tests Test 05/30/17 17:18 05/31/17 00:39 05/31/17 06:31 05/31/17 06:43 Bedside Glucose 140 154 149 White Blood Count 10.4 Red Blood Count 3.09 L Hemoglobin 9.4 L Hematocrit 29.8 L Mean Corpuscular Volume 96.4 Mean Corpuscular Hemoglobin 30.4 Mean Corpuscular Hemoglobin Concent 31.5 L Red Cell Distribution Width 21.7 H Platelet Count 182 Mean Platelet Volume 11.1 H Neutrophils % 79.3 H Lymphocytes % 7.5 L Monocytes % 7.9 Eosinophils % 1.0 Basophils % 0.2 Nucleated Red Blood Cells % 0.0 Neutrophils # (Manual) 8 H Lymphocytes # 0.8 Monocytes # 0.8 Eosinophils # 0.1 Basophils # 0.0 Nucleated Red Blood Cells # 0.0 Sodium Level 133 L Potassium Level 4.1 Chloride Level 92 L Carbon Dioxide Level 30 Anion Gap 15 Blood Urea Nitrogen 106 H Creatinine 2.33 H Glucose Level 124 Calcium Level 8.1 L Phosphorus Level 3.7 Magnesium Level 3.0 H Test 05/31/17 12:10 Bedside Glucose 156 Medications Medications Current Medications Metoprolol Tartrate (Lopressor) 5 mg Q4H PRN IV HR>110 Hold SBP<110 Last administered on 04/20/17 17:36; Admin Dose 5 MG; Start 04/11/17 at 13:30 Miscellaneous Information 1 ea NOTE XX ; Start 04/11/17 at 16:30 Glucose (Glutose) 15 gm Q15M PRN PO DECREASED GLUCOSE Last administered on 05/07 03:27; Admin Dose 15 GM; Start 04/11/17 at 16:30 Glucose (Glutose) 22.5 gm Q15M PRN PO DECREASED GLUCOSE; Start 04/11/17 at 16: 30 Dextrose (D50w Syringe) 25 ml Q15M PRN IV DECREASED GLUCOSE Last administered on 04/12/17 23:56; Admin Dose 25 ML; Start 04/11/17 at 16:30 Dextrose (D50w Syringe) 50 ml Q15M PRN IV DECREASED GLUCOSE; Start 04/11/17 at 16:30 Glucagon (Glucagen) 1 mg Q15M PRN IM DECREASED GLUCOSE; Start 04/11/17 at 16:30 Glucose (Glutose) 15 gm Q15M PRN BUCCAL DECREASED GLUCOSE; Start 04/11/17 at 16 :30 Metoclopramide HCl (Reglan) 10 mg Q6 IV Last administered on 05/31/17 12:40; Admin Dose 10 MG; Start 04/12/17 at 18:00 Insulin Aspart (Novolog Insulin Pen) NOVOLOG *MILD* ALGORI... Q6H SC Last administered on 05/31/17 12:41; Admin Dose 1 UNIT; Start 04/15/17 at 00:00 IV Flush (NS 10 ml) 10 ml PRN PRN IV FLUSH LINE; Start 04/15/17 at 13:00 Amiodarone HCl (Cordarone) 200 mg BID GTB Last administered on 05/31/17 09:56 ; Admin Dose 200 MG; Start 04/16/17 at 13:00 Heparin Sodium (Porcine) (Heparin (5000 Units/0.5 ml)) 5,000 unit BID SC Last administered on 04/30/17 21:03; Admin Dose 5,000 UNIT; Start 04/18/17 at 16:22; Status Future Hold Citalopram Hydrobromide (Celexa) 20 mg DAILY NGT Last administered on 09:55; Admin Dose 20 MG; Start 04/19/17 at 09:00 Hydralazine HCl (Apresoline) 20 mg Q6H PRN IV sbp ABOVE 160 Last administered on 05/22/17 19:59; Admin Dose 20 MG; Start 04/18/17 at 18:30 Chlorhexidine Gluconate (Peridex) 15 ml BID MT Last administered on 05/31/17 09:53; Admin Dose 15 ML; Start 04/22/17 at 21:00 Vitamin A/Vitamin D (Vitamin A & D Oint) 1 applic TID TOP Last administered on 05/31/17 12:41; Admin Dose 1 APPLIC; Start 04/22/17 at 21:00 Vitamin A/Vitamin D (Vitamin A & D Oint) 1 applic TID PRN TOP DRYNESS Last administered on 04/22/17 15:29; Admin Dose 1 APPLIC; Start 04/22/17 at 15:00 Acetaminophen/ Hydrocodone Bitart ([place] (5/325)) 1 tab Q6H GTB Last administered on 05/31/17 10:07; Admin Dose 1 TAB; Start 04/22/17 at 21:30 Spironolactone (Aldactone) 25 mg DAILY NGT Last administered on 05/31/17 09:56 ; Admin Dose 25 MG; Start 04/25/17 at 19:00; Status Future hold Diltiazem HCl 5 mg 5 mg Q1H PRN IV HEART RATE GREATER THAN 120 Last administered on 04/29/17 06:17; Admin Dose 5 MG; Start 04/29/17 at 05:00 Sodium Chloride 1,000 ml @ 0 mls/hr Q0M IV Last administered on 05/01/17 03: 00; Admin Dose 1,000 MLS/HR; Start 05/01/17 at 03:00 Sodium Chloride 1,000 ml @ 0 mls/hr Q0M IV Last administered on 05/01/17 04: 00; Admin Dose 1,000 MLS/HR; Start 05/01/17 at 03:30 Diltiazem HCl (Cardizem-D5W 125 Mg/125 ml Drip) 125 ml @ 5 mls/hr TITRATE IV Last administered on 05/02/17 19:11; Admin Dose 5 MLS/HR; Start 05/02/17 at 19: 00 Metoprolol Tartrate (Lopressor) 25 mg QID GTB Last administered on 05/31/17 12 :42; Admin Dose 25 MG; Start 05/07/17 at 09:00 Furosemide (Lasix) 40 mg Q12 IV Last administered on 05/31/17 09:54; Admin Dose 40 MG; Start 05/08/17 at 09:00 Vitamin B Complex/ Vitamin C (Berocca) 1 cap DAILY PO Last administered on 05/31 10:07; Admin Dose 1 CAP; Start 05/13/17 at 09:00 Nystatin (Nystatin Susp) 5 ml QID PO Last administered on 05/31/17 12:41; Admin Dose 5 ML; Start 05/12/17 at 17:00 Aspirin (Aspirin) 81 mg DAILY NGT Last administered on 05/31/17 09:55; Admin Dose 81 MG; Start 05/19/17 at 09:00 Lansoprazole (Prevacid) 30 mg BID@18 GTB Last administered on 05/31/17 06: 39; Admin Dose 30 MG; Start 05/20/17 at 18:00 Multivitamins (Multivitamin) 30 ml DAILY GTB Last administered on 05/31/17 09: 56; Admin Dose 30 ML; Start 05/24/17 at 09:00 QARNI,EMILIANO May 31, 2017 13:08
--- NOTE | 2017-05-31 16:34 | CONS ---
Date/Time of Note Date/Time of Note DATE: 05/31/17 TIME: 16:34 Assessment/Plan Assessment/Plan Chief Complaint/Hosp Course SUBJECTIVE: No acute events overnight. The patient is awake, looks comfortable. No fevers. Indwelling: Trach, bag Latif, right femoral Amrit catheter. PHYSICAL EXAMINATION: This is a fragile, chronically ill- appearing, elderly woman who is awake, in no distress. HEENT: Head atraumatic, normocephalic. Sclerae anicteric. Buccal mucosa dry. NECK: Supple. Tracheostomy present. CHEST: Chest rise symmetric. Breath sounds diminished at bases. HEART: S1, S2. ABDOMEN: Soft. Bowel sounds present. EXTREMITIES: Without cyanosis. SKIN: Positive for anasarca. ASSESSMENT: 1. Status post septic shock, urinary tract infection, pneumonia. 2. Azihn-fw-gjfekul respiratory failure. 3. Status post fungemia. 4. Rritb-vz-fpsofab kidney disease. 5. History of Clostridium difficile colitis. 6. Left upper extremity deep vein thrombosis. PLAN: The patient remains stable off antibiotics, continue present care, vent support per pulmonary, repeat cx's prn OLIVIA RN Problems: Consultation Date/Type/Reason Admit Date/Time Apr 11, 2017 at 11:28 Initial Consult Date 04/12/17 Type of Consultation: id Referring Provider: NINA MACIEL DO Exam/Review of Systems Vital Signs Vitals Vital Signs Date Time Temp Pulse Resp B/P Pulse Ox O2 Delivery O2 Flow Rate FiO2 05/31/17 16:09 97.6 87 17 121/58 92 05/31/17 08:00 35 Intake and Output 05/30/17 05/30/17 05/31/17 15:00 23:00 07:00 Intake Total 730 ml 730 ml Output Total 200 ml 400 ml Balance 530 ml 330 ml Results Result Diagram: 05/31/17 0631 05/31/17 0631 Results 24 hrs Laboratory Tests Test 05/30/17 17:18 05/31/17 00:39 05/31/17 06:31 05/31/17 06:43 Bedside Glucose 140 154 149 White Blood Count 10.4 Red Blood Count 3.09 L Hemoglobin 9.4 L Hematocrit 29.8 L Mean Corpuscular Volume 96.4 Mean Corpuscular Hemoglobin 30.4 Mean Corpuscular Hemoglobin Concent 31.5 L Red Cell Distribution Width 21.7 H Platelet Count 182 Mean Platelet Volume 11.1 H Neutrophils % 79.3 H Lymphocytes % 7.5 L Monocytes % 7.9 Eosinophils % 1.0 Basophils % 0.2 Nucleated Red Blood Cells % 0.0 Neutrophils # (Manual) 8 H Lymphocytes # 0.8 Monocytes # 0.8 Eosinophils # 0.1 Basophils # 0.0 Nucleated Red Blood Cells # 0.0 Sodium Level 133 L Potassium Level 4.1 Chloride Level 92 L Carbon Dioxide Level 30 Anion Gap 15 Blood Urea Nitrogen 106 H Creatinine 2.33 H Glucose Level 124 Calcium Level 8.1 L Phosphorus Level 3.7 Magnesium Level 3.0 H Test 05/31/17 12:10 Bedside Glucose 156 Medications Medications Current Medications Metoprolol Tartrate (Lopressor) 5 mg Q4H PRN IV HR>110 Hold SBP<110 Last administered on 04/20/17 17:36; Admin Dose 5 MG; Start 04/11/17 at 13:30 Miscellaneous Information 1 ea NOTE XX ; Start 04/11/17 at 16:30 Glucose (Glutose) 15 gm Q15M PRN PO DECREASED GLUCOSE Last administered on 05/07 03:27; Admin Dose 15 GM; Start 04/11/17 at 16:30 Glucose (Glutose) 22.5 gm Q15M PRN PO DECREASED GLUCOSE; Start 04/11/17 at 16: 30 Dextrose (D50w Syringe) 25 ml Q15M PRN IV DECREASED GLUCOSE Last administered on 04/12/17 23:56; Admin Dose 25 ML; Start 04/11/17 at 16:30 Dextrose (D50w Syringe) 50 ml Q15M PRN IV DECREASED GLUCOSE; Start 04/11/17 at 16:30 Glucagon (Glucagen) 1 mg Q15M PRN IM DECREASED GLUCOSE; Start 04/11/17 at 16:30 Glucose (Glutose) 15 gm Q15M PRN BUCCAL DECREASED GLUCOSE; Start 04/11/17 at 16 :30 Metoclopramide HCl (Reglan) 10 mg Q6 IV Last administered on 05/31/17 12:40; Admin Dose 10 MG; Start 04/12/17 at 18:00 Insulin Aspart (Novolog Insulin Pen) NOVOLOG *MILD* ALGORI... Q6H SC Last administered on 05/31/17 12:41; Admin Dose 1 UNIT; Start 04/15/17 at 00:00 IV Flush (NS 10 ml) 10 ml PRN PRN IV FLUSH LINE; Start 04/15/17 at 13:00 Amiodarone HCl (Cordarone) 200 mg BID GTB Last administered on 05/31/17 09:56 ; Admin Dose 200 MG; Start 04/16/17 at 13:00 Heparin Sodium (Porcine) (Heparin (5000 Units/0.5 ml)) 5,000 unit BID SC Last administered on 04/30/17 21:03; Admin Dose 5,000 UNIT; Start 04/18/17 at 16:22; Status Future Hold Citalopram Hydrobromide (Celexa) 20 mg DAILY NGT Last administered on 09:55; Admin Dose 20 MG; Start 04/19/17 at 09:00 Hydralazine HCl (Apresoline) 20 mg Q6H PRN IV sbp ABOVE 160 Last administered on 05/22/17 19:59; Admin Dose 20 MG; Start 04/18/17 at 18:30 Chlorhexidine Gluconate (Peridex) 15 ml BID MT Last administered on 05/31/17 09:53; Admin Dose 15 ML; Start 04/22/17 at 21:00 Vitamin A/Vitamin D (Vitamin A & D Oint) 1 applic TID TOP Last administered on 05/31/17 12:41; Admin Dose 1 APPLIC; Start 04/22/17 at 21:00 Vitamin A/Vitamin D (Vitamin A & D Oint) 1 applic TID PRN TOP DRYNESS Last administered on 04/22/17 15:29; Admin Dose 1 APPLIC; Start 04/22/17 at 15:00 Acetaminophen/ Hydrocodone Bitart ([place] (5/325)) 1 tab Q6H GTB Last administered on 05/31/17 16:07; Admin Dose 1 TAB; Start 04/22/17 at 21:30 Spironolactone (Aldactone) 25 mg DAILY NGT Last administered on 05/31/17 09:56 ; Admin Dose 25 MG; Start 04/25/17 at 19:00; Status Future hold Diltiazem HCl 5 mg 5 mg Q1H PRN IV HEART RATE GREATER THAN 120 Last administered on 04/29/17 06:17; Admin Dose 5 MG; Start 04/29/17 at 05:00 Sodium Chloride 1,000 ml @ 0 mls/hr Q0M IV Last administered on 05/01/17 03: 00; Admin Dose 1,000 MLS/HR; Start 05/01/17 at 03:00 Sodium Chloride 1,000 ml @ 0 mls/hr Q0M IV Last administered on 05/01/17 04: 00; Admin Dose 1,000 MLS/HR; Start 05/01/17 at 03:30 Diltiazem HCl (Cardizem-D5W 125 Mg/125 ml Drip) 125 ml @ 5 mls/hr TITRATE IV Last administered on 05/02/17 19:11; Admin Dose 5 MLS/HR; Start 05/02/17 at 19: 00 Metoprolol Tartrate (Lopressor) 25 mg QID GTB Last administered on 05/31/17 12 :42; Admin Dose 25 MG; Start 05/07/17 at 09:00 Furosemide (Lasix) 40 mg Q12 IV Last administered on 05/31/17 09:54; Admin Dose 40 MG; Start 05/08/17 at 09:00 Vitamin B Complex/ Vitamin C (Berocca) 1 cap DAILY PO Last administered on 05/31 10:07; Admin Dose 1 CAP; Start 05/13/17 at 09:00 Nystatin (Nystatin Susp) 5 ml QID PO Last administered on 05/31/17 12:41; Admin Dose 5 ML; Start 05/12/17 at 17:00 Aspirin (Aspirin) 81 mg DAILY NGT Last administered on 05/31/17 09:55; Admin Dose 81 MG; Start 05/19/17 at 09:00 Lansoprazole (Prevacid) 30 mg BID@,18 GTB Last administered on 05/31/17 06: 39; Admin Dose 30 MG; Start 05/20/17 at 18:00 Multivitamins (Multivitamin) 30 ml DAILY GTB Last administered on 05/31/17 09: 56; Admin Dose 30 ML; Start 05/24/17 at 09:00 LORETO MCKEON NP May 31, 2017 16:34
[2017-06-01] VITALS (22 sets, daily range): BP systolic 109–133; BP diastolic 53–74; PULSE 62–67; RESP 12–20
[2017-06-01] MEDS: METOCLOPRAMIDE 10 MG INJ IV SCH ×4 (01:01→17:42)
[2017-06-01] MEDS: LEVALBUTEROL (HFA) 15 GM INHALER INH SCH ×4 (01:40→19:19)
[2017-06-01] MEDS: HYDROCODONE/APAP (5/325) TAB GTB SCH ×4 (05:35→21:55)
[2017-06-01] MEDS: LANSOPRAZOLE 30 MG CAP GTB SCH ×2 (05:35→17:42)
[2017-06-01] MEDS: INSULIN ASPART [NOVOLOG] 3 ML PEN SC SCH ×4 (05:46→17:49)
[2017-06-01] MEDS: LEVOTHYROXINE 100 MCG TAB GTB SCH (06:37)
[2017-06-01 06:41] LABS: BASOPHILS % 0.2 % (0.0-2.0); EOSINOPHILS # 0.1 10^3/ul (0.0-0.5); HEMOGLOBIN 7.6 g/dl (12.0-16.0); LYMPHOCYTES # 0.8 10^3/ul (0.8-2.9); LYMPHOCYTES % 6.4 % (15.0-51.0); MEAN CORPUSCULAR HEMOGLOBIN 30.4 pg (29.0-33.0); MEAN CORPUSCULAR HGB CONC 31.7 g/dl (32.0-37.0); MEAN PLATELET VOLUME 10.9 fl (7.4-10.4); MONOCYTE # 1.1 10^3/ul (0.3-0.9); MONOCYTES % 8.6 % (0.0-11.0); NEUTROPHILS % 81.3 % (39.0-77.0); PLATELET COUNT 195 10^3/UL (140-415); RED CELL DISTRIBUTION WIDTH 21.1 % (11.5-14.5); WHITE BLOOD COUNT 12.2 10^3/ul (4.8-10.8)
[2017-06-01 07:08] LABS: CALCIUM 8.1 mg/dl (8.4-10.2); CREATININE 2.52 mg/dl (0.44-1.00); MAGNESIUM 2.9 mg/dl (1.7-2.5); POTASSIUM 4.2 mmol/L (3.5-5.1)
[2017-06-01 08:40] LABS: HEMATOCRIT 29.4 % (37.0-47.0); HEMOGLOBIN 9.5 g/dl (12.0-16.0)
[2017-06-01] MEDS: NYSTATIN SUSP 5 ML CUP PO SCH ×4 (09:14→21:49)
[2017-06-01] MEDS: FUROSEMIDE 40 MG INJ IV SCH (09:14)
[2017-06-01] MEDS: CITALOPRAM 20 MG TAB NGT SCH (09:14)
[2017-06-01] MEDS: ASPIRIN 81 MG TAB NGT SCH (09:15)
[2017-06-01] MEDS: METOPROLOL 25 MG TAB GTB SCH ×4 (09:15→21:52)
[2017-06-01] MEDS: VITAMIN B COMPLEX/VIT C CAP PO SCH (09:15)
[2017-06-01] MEDS: SPIRONOLACTONE 25 MG TAB NGT SCH (09:15)
[2017-06-01] MEDS: AMIODARONE 200 MG TAB GTB SCH ×2 (09:15→21:51)
[2017-06-01] MEDS: VITAMIN A & D 5 GM OINT PACKET TOP SCH ×3 (09:16→21:49)
[2017-06-01] MEDS: CHLORHEXIDINE GLUCONATE 15 ML UD CUP MT SCH ×2 (09:16→21:49)
[2017-06-01] MEDS: MULTIVITAMINS 30 ML CUP GTB SCH (09:16)
--- NOTE | 2017-06-01 10:36 | PN ---
Date/Time of Note Date/Time of Note DATE: 06/01/17 TIME: 10:35 Assessment/Plan VTE Prophylaxis VTE Prophylaxis Intervention: other Lines/Catheters IV Catheter Type (from Nrsg): marguerite cath Urinary Cath still in place: Yes Reason Cath still needed: urinary retention Assessment/Plan Chief Complaint/Hosp Course SUBJECTIVE DATA: no new events noted. no nausea, vomiting, new rash, hematuria, melena, tachypnea trach in place vent settings and cardiac strips were reviewed has a temp line in place for HD which has poor blood flow d/w at the bedside OBJECTIVE DATA: HEENT: Head is normocephalic. NECK: Supple. HEART: Regular rate. LUNGS: Diminished breath sounds at the base. ABDOMEN: Soft, nontender to palpation. No rebound or guarding. EXTREMITIES: Negative for clubbing, cyanosis. Positive edema. DERMATOLOGIC: No rashes. MUSCULOSKELETAL: No joint effusion. NEUROLOGIC: Unchanged exam. MEDICATIONS: Reviewed. LABORATORY AND DIAGNOSTIC DATA: Reviewed. 1. Ventilator-dependent respiratory failure. Vent settings reviewed. ABGs reviewed. Continue to monitor. Follow up with Pulmonary. there no foreign body aspiration per CT results 2. History of thyroid cancer with tracheomalacia. The patient is status post trach. Has been evaluated by ENT. Continue to monitor. 3. Nonoliguric acute kidney injury on top of chronic kidney disease. she has good uop and her access is not working well. will hold HD and reassess in am. will need HD if no improvement in the next 24-48 hours 4. Volume overload secondary to acute kidney injury and CHF. 5. Sepsis, status post shock secondary to aspiration pneumonia. The patient is completing antibiotic course. 6. Adrenal insufficiency. Continue current steroid regimen. 7. Acute encephalopathy, etiology is toxic metabolic, uremic, improving. Continue dialysis. Continue supportive care. 8. Hypothyroidism. Continue Synthroid. 9. Hyponatremia, improving. Continue dialysis. 10. Anemia. Monitor H and H levels. 11. Congestive heart failure. Continue medical management. 12. Left upper extremity deep vein thrombosis. The patient's anticoagulation is on hold secondary to recent gastrointestinal bleed. 13. Dysphagia, status post tube feeding. 14. Status post GI bleed. 15. Gastrointestinal and deep venous thrombosis prophylaxis. Problems: Exam/Review of Systems Vital Signs Vitals Vital Signs Date Time Temp Pulse Resp B/P Pulse Ox O2 Delivery O2 Flow Rate FiO2 06/01/17 09:44 30 06/01/17 09:38 67 13 100 06/01/17 08:52 97.5 109/56 Intake and Output 05/31/17 05/31/17 06/01/17 15:00 23:00 07:00 Intake Total 960 ml 897 ml Output Total 400 ml 350 ml Balance 560 ml 547 ml Results Result Diagram: 06/01/17 0825 06/01/17 0601 Results 24 hrs Laboratory Tests Test 05/31/17 12:10 05/31/17 17:10 06/01/17 01:04 06/01/17 05:41 Bedside Glucose 156 150 131 143 Test 06/01/17 06:01 06/01/17 08:25 White Blood Count 12.2 H Red Blood Count 2.50 L Hemoglobin 7.6 L 9.5 #L Hematocrit 24.0 L 29.4 #L Mean Corpuscular Volume 96.0 Mean Corpuscular Hemoglobin 30.4 Mean Corpuscular Hemoglobin Concent 31.7 L Red Cell Distribution Width 21.1 H Platelet Count 195 Mean Platelet Volume 10.9 H Neutrophils % 81.3 H Lymphocytes % 6.4 L Monocytes % 8.6 Eosinophils % 1.0 Basophils % 0.2 Nucleated Red Blood Cells % 0.0 Neutrophils # (Manual) 10 H Lymphocytes # 0.8 Monocytes # 1.1 H Eosinophils # 0.1 Basophils # 0.0 Nucleated Red Blood Cells # 0.0 Sodium Level 128 L Potassium Level 4.2 Chloride Level 93 L Carbon Dioxide Level 28 Anion Gap 11 Blood Urea Nitrogen 117 H Creatinine 2.52 H Glucose Level 123 Calcium Level 8.1 L Phosphorus Level 4.0 Magnesium Level 2.9 H Medications Medications Current Medications Metoprolol Tartrate (Lopressor) 5 mg Q4H PRN IV HR>110 Hold SBP<110 Last administered on 04/20/17 17:36; Admin Dose 5 MG; Start 04/11/17 at 13:30 Miscellaneous Information 1 ea NOTE XX ; Start 04/11/17 at 16:30 Glucose (Glutose) 15 gm Q15M PRN PO DECREASED GLUCOSE Last administered on 05/07 03:27; Admin Dose 15 GM; Start 04/11/17 at 16:30 Glucose (Glutose) 22.5 gm Q15M PRN PO DECREASED GLUCOSE; Start 04/11/17 at 16: 30 Dextrose (D50w Syringe) 25 ml Q15M PRN IV DECREASED GLUCOSE Last administered on 04/12/17 23:56; Admin Dose 25 ML; Start 04/11/17 at 16:30 Dextrose (D50w Syringe) 50 ml Q15M PRN IV DECREASED GLUCOSE; Start 04/11/17 at 16:30 Glucagon (Glucagen) 1 mg Q15M PRN IM DECREASED GLUCOSE; Start 04/11/17 at 16:30 Glucose (Glutose) 15 gm Q15M PRN BUCCAL DECREASED GLUCOSE; Start 04/11/17 at 16 :30 Metoclopramide HCl (Reglan) 10 mg Q6 IV Last administered on 06/01/17 05:35; Admin Dose 10 MG; Start 04/12/17 at 18:00 Insulin Aspart (Novolog Insulin Pen) NOVOLOG *MILD* ALGORI... Q6H SC Last administered on 06/01/17 05:46; Admin Dose 1 UNIT; Start 04/15/17 at 00:00 IV Flush (NS 10 ml) 10 ml PRN PRN IV FLUSH LINE; Start 04/15/17 at 13:00 Amiodarone HCl (Cordarone) 200 mg BID GTB Last administered on 06/01/17 09:15 ; Admin Dose 200 MG; Start 04/16/17 at 13:00 Heparin Sodium (Porcine) (Heparin (5000 Units/0.5 ml)) 5,000 unit BID SC Last administered on 04/30/17 21:03; Admin Dose 5,000 UNIT; Start 04/18/17 at 16:22; Status Future Hold Citalopram Hydrobromide (Celexa) 20 mg DAILY NGT Last administered on 09:14; Admin Dose 20 MG; Start 04/19/17 at 09:00 Hydralazine HCl (Apresoline) 20 mg Q6H PRN IV sbp ABOVE 160 Last administered on 05/22/17 19:59; Admin Dose 20 MG; Start 04/18/17 at 18:30 Chlorhexidine Gluconate (Peridex) 15 ml BID MT Last administered on 06/01/17 09:16; Admin Dose 15 ML; Start 04/22/17 at 21:00 Vitamin A/Vitamin D (Vitamin A & D Oint) 1 applic TID TOP Last administered on 06/01/17 09:16; Admin Dose 1 APPLIC; Start 04/22/17 at 21:00 Vitamin A/Vitamin D (Vitamin A & D Oint) 1 applic TID PRN TOP DRYNESS Last administered on 04/22/17 15:29; Admin Dose 1 APPLIC; Start 04/22/17 at 15:00 Acetaminophen/ Hydrocodone Bitart ([place] (5/325)) 1 tab Q6H GTB Last administered on 06/01/17 05:35; Admin Dose 1 TAB; Start 04/22/17 at 21:30 Spironolactone (Aldactone) 25 mg DAILY NGT Last administered on 06/01/17 09:15 ; Admin Dose 25 MG; Start 04/25/17 at 19:00; Status Future hold Diltiazem HCl 5 mg 5 mg Q1H PRN IV HEART RATE GREATER THAN 120 Last administered on 04/29/17 06:17; Admin Dose 5 MG; Start 04/29/17 at 05:00 Sodium Chloride 1,000 ml @ 0 mls/hr Q0M IV Last administered on 05/01/17 03: 00; Admin Dose 1,000 MLS/HR; Start 05/01/17 at 03:00 Sodium Chloride 1,000 ml @ 0 mls/hr Q0M IV Last administered on 05/01/17 04: 00; Admin Dose 1,000 MLS/HR; Start 05/01/17 at 03:30 Diltiazem HCl (Cardizem-D5W 125 Mg/125 ml Drip) 125 ml @ 5 mls/hr TITRATE IV Last administered on 05/02/17 19:11; Admin Dose 5 MLS/HR; Start 05/02/17 at 19: 00 Metoprolol Tartrate (Lopressor) 25 mg QID GTB Last administered on 06/01/17 09 :15; Admin Dose 25 MG; Start 05/07/17 at 09:00 Furosemide (Lasix) 40 mg Q12 IV Last administered on 06/01/17 09:14; Admin Dose 40 MG; Start 05/08/17 at 09:00 Vitamin B Complex/ Vitamin C (Berocca) 1 cap DAILY PO Last administered on 06/01 09:15; Admin Dose 1 CAP; Start 05/13/17 at 09:00 Nystatin (Nystatin Susp) 5 ml QID PO Last administered on 06/01/17 09:14; Admin Dose 5 ML; Start 05/12/17 at 17:00 Aspirin (Aspirin) 81 mg DAILY NGT Last administered on 06/01/17 09:15; Admin Dose 81 MG; Start 05/19/17 at 09:00 Lansoprazole (Prevacid) 30 mg BID@,18 GTB Last administered on 06/01/17 05: 35; Admin Dose 30 MG; Start 05/20/17 at 18:00 Multivitamins (Multivitamin) 30 ml DAILY GTB Last administered on 06/01/17 09: 16; Admin Dose 30 ML; Start 05/24/17 at 09:00 DERECK QUINTERO DO Jun 01, 2017 10:36
--- NOTE | 2017-06-01 11:35 | CONS ---
Date/Time of Note Date/Time of Note DATE: 06/01/17 TIME: 11:33 Assessment/Plan Assessment/Plan Additional Assessment/Plan Ventilator settings; SIMV of 8, pressure support 10, PEEP of 5, tidal volume 500 , 30% FiO2. Assessment and recommendations; 1. Patient admitted with sepsis with marked interval improvement 2. Chronic respiratory failure. 3. Remote history of glossal cancer. 4. Status post redo tracheostomy 2. 5. COPD. 6. Severe generalized deconditioning. 6. Renal failure, on hemodialysis. 8. Failure to be weaned from ventilator on account of apneic episodes during sleep. 9. Anemia. Continue current treatment. Patient is a good candidate for transfer to a rehab facility. Consultation Date/Type/Reason Admit Date/Time Apr 11, 2017 at 11:28 Initial Consult Date 05/01/17 Type of Consultation: Pulmonary Referring Provider: NINA MACIEL DO 24 HR Interval Summary Free Text/Dictation Patient condition stable. Remains ventilator dependent. Remains awake and alert. Has remained hemodynamically stable. General exam; elderly woman, on ventilator via tracheostomy currently in no distress. Exam/Review of Systems Vital Signs Vitals Vital Signs Date Time Temp Pulse Resp B/P Pulse Ox O2 Delivery O2 Flow Rate FiO2 06/01/17 09:44 30 06/01/17 09:38 67 13 100 06/01/17 08:52 97.5 109/56 Intake and Output 05/31/17 05/31/17 06/01/17 15:00 23:00 07:00 Intake Total 960 ml 897 ml Output Total 400 ml 350 ml Balance 560 ml 547 ml Exam HEENT exam; supple neck, tracheostomy in place. Patient has fair dentition. No neck masses. No thyromegaly. No neck bruits. Chest exam; clear to auscultation. S1-S2 audible, no murmurs. Regular rhythm. Abdomen exam; soft, G-tube in place. Bowel sounds audible. Nontender. Nondistended. Extremity exam; 2+ pitting edema in lower extremities bilaterally. 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 Results Result Diagram: 06/01/17 0825 06/01/17 0601 Results 24 hrs Laboratory Tests Test 05/31/17 12:10 05/31/17 17:10 06/01/17 01:04 06/01/17 05:41 Bedside Glucose 156 150 131 143 Test 06/01/17 06:01 06/01/17 08:25 06/01/17 11:20 White Blood Count 12.2 H Red Blood Count 2.50 L Hemoglobin 7.6 L 9.5 #L Hematocrit 24.0 L 29.4 #L Mean Corpuscular Volume 96.0 Mean Corpuscular Hemoglobin 30.4 Mean Corpuscular Hemoglobin Concent 31.7 L Red Cell Distribution Width 21.1 H Platelet Count 195 Mean Platelet Volume 10.9 H Neutrophils % 81.3 H Lymphocytes % 6.4 L Monocytes % 8.6 Eosinophils % 1.0 Basophils % 0.2 Nucleated Red Blood Cells % 0.0 Neutrophils # (Manual) 10 H Lymphocytes # 0.8 Monocytes # 1.1 H Eosinophils # 0.1 Basophils # 0.0 Nucleated Red Blood Cells # 0.0 Sodium Level 128 L Potassium Level 4.2 Chloride Level 93 L Carbon Dioxide Level 28 Anion Gap 11 Blood Urea Nitrogen 117 H Creatinine 2.52 H Glucose Level 123 Calcium Level 8.1 L Phosphorus Level 4.0 Magnesium Level 2.9 H Bedside Glucose 148 Medications Medications Current Medications Metoprolol Tartrate (Lopressor) 5 mg Q4H PRN IV HR>110 Hold SBP<110 Last administered on 04/20/17 17:36; Admin Dose 5 MG; Start 04/11/17 at 13:30 Miscellaneous Information 1 ea NOTE XX ; Start 04/11/17 at 16:30 Glucose (Glutose) 15 gm Q15M PRN PO DECREASED GLUCOSE Last administered on 05/07 03:27; Admin Dose 15 GM; Start 04/11/17 at 16:30 Glucose (Glutose) 22.5 gm Q15M PRN PO DECREASED GLUCOSE; Start 04/11/17 at 16: 30 Dextrose (D50w Syringe) 25 ml Q15M PRN IV DECREASED GLUCOSE Last administered on 04/12/17 23:56; Admin Dose 25 ML; Start 04/11/17 at 16:30 Dextrose (D50w Syringe) 50 ml Q15M PRN IV DECREASED GLUCOSE; Start 04/11/17 at 16:30 Glucagon (Glucagen) 1 mg Q15M PRN IM DECREASED GLUCOSE; Start 04/11/17 at 16:30 Glucose (Glutose) 15 gm Q15M PRN BUCCAL DECREASED GLUCOSE; Start 04/11/17 at 16 :30 Metoclopramide HCl (Reglan) 10 mg Q6 IV Last administered on 06/01/17 11:25; Admin Dose 10 MG; Start 04/12/17 at 18:00 Insulin Aspart (Novolog Insulin Pen) NOVOLOG *MILD* ALGORI... Q6H SC Last administered on 06/01/17 11:23; Admin Dose 1 UNIT; Start 04/15/17 at 00:00 IV Flush (NS 10 ml) 10 ml PRN PRN IV FLUSH LINE; Start 04/15/17 at 13:00 Amiodarone HCl (Cordarone) 200 mg BID GTB Last administered on 06/01/17 09:15 ; Admin Dose 200 MG; Start 04/16/17 at 13:00 Heparin Sodium (Porcine) (Heparin (5000 Units/0.5 ml)) 5,000 unit BID SC Last administered on 04/30/17 21:03; Admin Dose 5,000 UNIT; Start 04/18/17 at 16:22; Status Future Hold Citalopram Hydrobromide (Celexa) 20 mg DAILY NGT Last administered on 09:14; Admin Dose 20 MG; Start 04/19/17 at 09:00 Hydralazine HCl (Apresoline) 20 mg Q6H PRN IV sbp ABOVE 160 Last administered on 05/22/17 19:59; Admin Dose 20 MG; Start 04/18/17 at 18:30 Chlorhexidine Gluconate (Peridex) 15 ml BID MT Last administered on 06/01/17 09:16; Admin Dose 15 ML; Start 04/22/17 at 21:00 Vitamin A/Vitamin D (Vitamin A & D Oint) 1 applic TID TOP Last administered on 06/01/17 09:16; Admin Dose 1 APPLIC; Start 04/22/17 at 21:00 Vitamin A/Vitamin D (Vitamin A & D Oint) 1 applic TID PRN TOP DRYNESS Last administered on 04/22/17 15:29; Admin Dose 1 APPLIC; Start 04/22/17 at 15:00 Acetaminophen/ Hydrocodone Bitart ([place] (5/325)) 1 tab Q6H GTB Last administered on 06/01/17 05:35; Admin Dose 1 TAB; Start 04/22/17 at 21:30 Diltiazem HCl 5 mg 5 mg Q1H PRN IV HEART RATE GREATER THAN 120 Last administered on 04/29/17 06:17; Admin Dose 5 MG; Start 04/29/17 at 05:00 Sodium Chloride 1,000 ml @ 0 mls/hr Q0M IV Last administered on 05/01/17 03: 00; Admin Dose 1,000 MLS/HR; Start 05/01/17 at 03:00 Sodium Chloride 1,000 ml @ 0 mls/hr Q0M IV Last administered on 05/01/17 04: 00; Admin Dose 1,000 MLS/HR; Start 05/01/17 at 03:30 Diltiazem HCl (Cardizem-D5W 125 Mg/125 ml Drip) 125 ml @ 5 mls/hr TITRATE IV Last administered on 05/02/17 19:11; Admin Dose 5 MLS/HR; Start 05/02/17 at 19: 00 Metoprolol Tartrate (Lopressor) 25 mg QID GTB Last administered on 06/01/17 09 :15; Admin Dose 25 MG; Start 05/07/17 at 09:00 Vitamin B Complex/ Vitamin C (Berocca) 1 cap DAILY PO Last administered on 06/01 09:15; Admin Dose 1 CAP; Start 05/13/17 at 09:00 Nystatin (Nystatin Susp) 5 ml QID PO Last administered on 06/01/17 09:14; Admin Dose 5 ML; Start 05/12/17 at 17:00 Aspirin (Aspirin) 81 mg DAILY NGT Last administered on 06/01/17 09:15; Admin Dose 81 MG; Start 05/19/17 at 09:00 Lansoprazole (Prevacid) 30 mg BID@18 GTB Last administered on 06/01/17 05: 35; Admin Dose 30 MG; Start 05/20/17 at 18:00 Multivitamins (Multivitamin) 30 ml DAILY GTB Last administered on 06/01/17 09: 16; Admin Dose 30 ML; Start 05/24/17 at 09:00 EMILIANO HICKS Jun 01, 2017 11:35
--- NOTE | 2017-06-01 14:14 | CONS ---
Date/Time of Note Date/Time of Note DATE: 06/01/17 TIME: 14:13 Assessment/Plan Assessment/Plan Chief Complaint/Hosp Course SUBJECTIVE: No acute events overnight. No fevers, looks comfortable, at bedside Indwelling: Trach, bag Latif, right femoral Amrit catheter. PHYSICAL EXAMINATION: This is a fragile, chronically ill- appearing, elderly woman who is awake, in no distress. HEENT: Head atraumatic, normocephalic. Sclerae anicteric. Buccal mucosa dry. NECK: Supple. Tracheostomy present. CHEST: Chest rise symmetric. Breath sounds diminished at bases. HEART: S1, S2. ABDOMEN: Soft. Bowel sounds present. EXTREMITIES: Without cyanosis. SKIN: Positive for anasarca. ASSESSMENT: 1. Status post septic shock, urinary tract infection, pneumonia. 2. Jczls-kw-[id number] respiratory failure. 3. Status post fungemia. 4. Vvcxs-[id number] kidney disease. 5. History of Clostridium difficile colitis. 6. Left upper extremity deep vein thrombosis. PLAN: The patient remains stable off antibiotics, continue present care, vent support per pulmonary, repeat cx's prn OLIVIA RN Problems: Consultation Date/Type/Reason Admit Date/Time Apr 11, 2017 at 11:28 Initial Consult Date 04/12/17 Type of Consultation: id Referring Provider: NINA MACIEL DO Exam/Review of Systems Vital Signs Vitals Vital Signs Date Time Temp Pulse Resp B/P Pulse Ox O2 Delivery O2 Flow Rate FiO2 06/01/17 13:46 65 06/01/17 13:06 12 100 30 06/01/17 11:49 97.9 125/59 Intake and Output 05/31/17 05/31/17 06/01/17 15:00 23:00 07:00 Intake Total 960 ml 897 ml Output Total 400 ml 350 ml Balance 560 ml 547 ml Results Result Diagram: 06/01/17 0825 06/01/17 0601 Results 24 hrs Laboratory Tests Test 05/31/17 17:10 06/01/17 01:04 06/01/17 05:41 06/01/17 06:01 Bedside Glucose 150 131 143 White Blood Count 12.2 H Red Blood Count 2.50 L Hemoglobin 7.6 L Hematocrit 24.0 L Mean Corpuscular Volume 96.0 Mean Corpuscular Hemoglobin 30.4 Mean Corpuscular Hemoglobin Concent 31.7 L Red Cell Distribution Width 21.1 H Platelet Count 195 Mean Platelet Volume 10.9 H Neutrophils % 81.3 H Lymphocytes % 6.4 L Monocytes % 8.6 Eosinophils % 1.0 Basophils % 0.2 Nucleated Red Blood Cells % 0.0 Neutrophils # (Manual) 10 H Lymphocytes # 0.8 Monocytes # 1.1 H Eosinophils # 0.1 Basophils # 0.0 Nucleated Red Blood Cells # 0.0 Sodium Level 128 L Potassium Level 4.2 Chloride Level 93 L Carbon Dioxide Level 28 Anion Gap 11 Blood Urea Nitrogen 117 H Creatinine 2.52 H Glucose Level 123 Calcium Level 8.1 L Phosphorus Level 4.0 Magnesium Level 2.9 H Test 06/01/17 08:25 06/01/17 11:20 Hemoglobin 9.5 #L Hematocrit 29.4 #L Bedside Glucose 148 Medications Medications Current Medications Metoprolol Tartrate (Lopressor) 5 mg Q4H PRN IV HR>110 Hold SBP<110 Last administered on 04/20/17 17:36; Admin Dose 5 MG; Start 04/11/17 at 13:30 Miscellaneous Information 1 ea NOTE XX ; Start 04/11/17 at 16:30 Glucose (Glutose) 15 gm Q15M PRN PO DECREASED GLUCOSE Last administered on 05/07 03:27; Admin Dose 15 GM; Start 04/11/17 at 16:30 Glucose (Glutose) 22.5 gm Q15M PRN PO DECREASED GLUCOSE; Start 04/11/17 at 16: 30 Dextrose (D50w Syringe) 25 ml Q15M PRN IV DECREASED GLUCOSE Last administered on 04/12/17 23:56; Admin Dose 25 ML; Start 04/11/17 at 16:30 Dextrose (D50w Syringe) 50 ml Q15M PRN IV DECREASED GLUCOSE; Start 04/11/17 at 16:30 Glucagon (Glucagen) 1 mg Q15M PRN IM DECREASED GLUCOSE; Start 04/11/17 at 16:30 Glucose (Glutose) 15 gm Q15M PRN BUCCAL DECREASED GLUCOSE; Start 04/11/17 at 16 :30 Metoclopramide HCl (Reglan) 10 mg Q6 IV Last administered on 06/01/17 11:25; Admin Dose 10 MG; Start 04/12/17 at 18:00 Insulin Aspart (Novolog Insulin Pen) NOVOLOG *MILD* ALGORI... Q6H SC Last administered on 06/01/17 11:23; Admin Dose 1 UNIT; Start 04/15/17 at 00:00 IV Flush (NS 10 ml) 10 ml PRN PRN IV FLUSH LINE; Start 04/15/17 at 13:00 Amiodarone HCl (Cordarone) 200 mg BID GTB Last administered on 06/01/17 09:15 ; Admin Dose 200 MG; Start 04/16/17 at 13:00 Heparin Sodium (Porcine) (Heparin (5000 Units/0.5 ml)) 5,000 unit BID SC Last administered on 04/30/17 21:03; Admin Dose 5,000 UNIT; Start 04/18/17 at 16:22; Status Future Hold Citalopram Hydrobromide (Celexa) 20 mg DAILY NGT Last administered on 09:14; Admin Dose 20 MG; Start 04/19/17 at 09:00 Hydralazine HCl (Apresoline) 20 mg Q6H PRN IV sbp ABOVE 160 Last administered on 05/22/17 19:59; Admin Dose 20 MG; Start 04/18/17 at 18:30 Chlorhexidine Gluconate (Peridex) 15 ml BID MT Last administered on 06/01/17 09:16; Admin Dose 15 ML; Start 04/22/17 at 21:00 Vitamin A/Vitamin D (Vitamin A & D Oint) 1 applic TID TOP Last administered on 06/01/17 12:39; Admin Dose 1 APPLIC; Start 04/22/17 at 21:00 Vitamin A/Vitamin D (Vitamin A & D Oint) 1 applic TID PRN TOP DRYNESS Last administered on 04/22/17 15:29; Admin Dose 1 APPLIC; Start 04/22/17 at 15:00 Acetaminophen/ Hydrocodone Bitart ([place] (5/325)) 1 tab Q6H GTB Last administered on 06/01/17 12:38; Admin Dose 1 TAB; Start 04/22/17 at 21:30 Diltiazem HCl 5 mg 5 mg Q1H PRN IV HEART RATE GREATER THAN 120 Last administered on 04/29/17 06:17; Admin Dose 5 MG; Start 04/29/17 at 05:00 Sodium Chloride 1,000 ml @ 0 mls/hr Q0M IV Last administered on 05/01/17 03: 00; Admin Dose 1,000 MLS/HR; Start 05/01/17 at 03:00 Sodium Chloride 1,000 ml @ 0 mls/hr Q0M IV Last administered on 05/01/17 04: 00; Admin Dose 1,000 MLS/HR; Start 05/01/17 at 03:30 Diltiazem HCl (Cardizem-D5W 125 Mg/125 ml Drip) 125 ml @ 5 mls/hr TITRATE IV Last administered on 05/02/17 19:11; Admin Dose 5 MLS/HR; Start 05/02/17 at 19: 00 Metoprolol Tartrate (Lopressor) 25 mg QID GTB Last administered on 06/01/17 12 :38; Admin Dose 25 MG; Start 05/07/17 at 09:00 Vitamin B Complex/ Vitamin C ([place]) 1 cap DAILY PO Last administered on 06/01 09:15; Admin Dose 1 CAP; Start 05/13/17 at 09:00 Nystatin (Nystatin Susp) 5 ml QID PO Last administered on 06/01/17 12:38; Admin Dose 5 ML; Start 05/12/17 at 17:00 Aspirin (Aspirin) 81 mg DAILY NGT Last administered on 06/01/17 09:15; Admin Dose 81 MG; Start 05/19/17 at 09:00 Lansoprazole (Prevacid) 30 mg BID@06,18 GTB Last administered on 06/01/17 05: 35; Admin Dose 30 MG; Start 05/20/17 at 18:00 Multivitamins (Multivitamin) 30 ml DAILY GTB Last administered on 06/01/17 09: 16; Admin Dose 30 ML; Start 05/24/17 at 09:00 LORETO MCKEON NP Jun 01, 2017 14:13
[2017-06-01 15:01] LABS: ADD UMIC YES; UR ASCORBIC ACID NEGATIVE (NEGATIVE); UR BACTERIA FEW /HPF (NONE SEEN); UR BILIRUBIN (Dip) NEGATIVE (NEGATIVE); UR BLOOD (Dip) 2+ mg/dL (NEGATIVE); UR CLARITY CLOUDY (CLEAR); UR COLOR YELLOW (YELLOW); UR GLUCOSE (Dip) NEGATIVE (NEGATIVE); UR KETONES (Dip) NEGATIVE (NEGATIVE); UR LEUKOCYTE ESTERASE (Dip) 3+ Leu/ul (NEGATIVE); UR NITRITE (Dip) NEGATIVE (NEGATIVE); UR NONSQUAMOUS EPITHELIAL CELL 2 /HPF (NONE SEEN); UR RBC 19 /HPF (0-5); UR SPECIFIC GRAVITY (Dip) 1.008 (1.003-1.030); UR TOTAL PROTEIN (Dip) NEGATIVE (NEGATIVE); UR UROBILINOGEN (Dip) NEGATIVE (NEGATIVE); UR WBC CLUMPS MANY /HPF (NONE SEEN)
--- NOTE | 2017-06-01 16:26 | PN ---
Date/Time of Note Date/Time of Note DATE: 05/31/17 TIME: 16:24 Assessment/Plan Lines/Catheters IV Catheter Type (from [facility]): marguerite cath Mims in Place (from [facility]): Yes Assessment/Plan Chief Complaint/Hosp Course 1. Cholelithiasis: Tolerating tube feeds; no abdominal pain/discomfort/bloating ; +bowel function -No surgical intervention required at this time 2. Pneumonia: Recurrent +sputum cultures; appears comfortable, no fevers, s/p abx; CXR: with nodule-possible aspirated tooth; ct chest: no foreign body -pulmonary toilet -wean as tolerated 3. Vent dependent respiratory failure: 2/2 aspiration PNA+ CHF;reintubated and extubated, coded 04/21 and 05/01; comfortable on vent; on SIMV -as above 4. KEYONNA: likely 2/2 septic shock; with + urine output; will need [facility] HD, HD today unable 2/2 poor flow in catheter-poss cath placement -judicious fluid management -avoid nephrotoxic agents 5. Uncontrolled Afib: s/p amiodarone drip, on oral amiodarone; episodes of Afib Now SR -medical optimization 6. Leukocytosis with lactic acidosis: 2/2 pneumonia +/- steroids vs.fungemia vs other (urine, repeat blood cultures negative); labile -per ID 7. Macrocytic anemia: chronic vs. dilutional vs. acute bleed vs. b12/folate deficiency; hh stable -monitor -Transfuse as needed 8. Electrolyte imbalance: (hyponatremia, hypokalemia); improved -electrolyte optimization 9. CHF: BNP elevated -judicious fluid management -medical optimization 10. Adrenal Insufficiency -solucortef 11. Oral lesions: improving 12. Hypothyroidism; tsh elevated -on synthroid 13. Hypocalcemia with hypoalbuminemia -optimize nutrition 14. Bilateral upper and lower extremity edema: hx(+) Thrombus in upper arm; lower leg pain, doppler (-) -elevate extremities -supportive 15. Hypoalbuminemia: 2/2 malnutrition +/- inflammation; decreased; tolerating tf ; -nutrition optimization -as above Thank you, Late entry 05/31 Problems: Subjective 24 Hr Interval Summary Drowsy. Comfortable on vent. No c/o pain, discomfort. No fevers, chills, n/v/d/ dysuria. +bowel function. Exam/Review of Systems Vital Signs Vitals Vital Signs Date Time Temp Pulse Resp B/P Pulse Ox O2 Delivery O2 Flow Rate FiO2 06/01/17 15:38 97.4 63 18 133/64 100 06/01/17 15:11 30 Intake and Output 05/31/17 05/31/17 06/01/17 15:00 23:00 07:00 Intake Total 960 ml 897 ml Output Total 400 ml 350 ml Balance 560 ml 547 ml Exam Free Text/Dictation Constitutional: somnolent, easy to arouse alert pleasant Head: atraumatic, normocephalic Eyes: PERRL, nl lids, nl sclera; right eye slightly red ENMT: No mucosa pink and moist (pink and moist with healing perioral lesions), tooth missing, Neck: non-tender, supple, tracheostomy AC setting currently Respiratory: diminished, comfortable on vent, min sputum Cardiovascular: nl pulses, regular rate and rhythm, Gastrointestinal: non distended, GT tubes site no erythema, no drainage, non tenderness, bowel sounds x 4 quads, soft; tf ongoing Genitourinary - Female: nl external genitalia; mims with yellow output with sediments Musculoskeletal: nl extremities to inspection Extremities: normal pulses, bilateral upper/lower extremity edema 1+; improved extremity edema Neurological: responsive Skin: nl turgor, No rash or lesions Lymph: nl lymph node Results Result Diagram: 06/01/17 0825 06/01/17 0601 PATRICK QUINTERO MD Jun 01, 2017 16:26
--- NOTE | 2017-06-01 16:27 | PN ---
Date/Time of Note Date/Time of Note DATE: 06/01/17 TIME: 16:26 Assessment/Plan Lines/Catheters IV Catheter Type (from [facility]): marguerite cath Mims in Place (from [facility]): Yes Assessment/Plan Chief Complaint/Hosp Course 1. Cholelithiasis: Tolerating tube feeds; no abdominal pain/discomfort/bloating ; +bowel function -No surgical intervention required at this time 2. Pneumonia: Recurrent +sputum cultures; appears comfortable, no fevers, s/p abx; CXR: with nodule-possible aspirated tooth; ct chest: no foreign body -pulmonary toilet -wean as tolerated 3. Vent dependent respiratory failure: 2/2 aspiration PNA+ CHF;reintubated and extubated, coded 04/21 and 05/01; comfortable on vent; on SIMV -as above 4. KEYONNA: likely 2/2 septic shock; with + urine output; will need group home HD, HD today unable 2/2 poor flow in catheter-poss cath placement -judicious fluid management -avoid nephrotoxic agents 5. Uncontrolled Afib: s/p amiodarone drip, on oral amiodarone; episodes of Afib Now SR -medical optimization 6. Leukocytosis with lactic acidosis: 2/2 pneumonia +/- steroids vs.fungemia vs other (urine, repeat blood cultures negative); labile -per ID 7. Macrocytic anemia: chronic vs. dilutional vs. acute bleed vs. b12/folate deficiency; hh stable -monitor -Transfuse as needed 8. Electrolyte imbalance: (hyponatremia, hypokalemia); improved -electrolyte optimization 9. CHF: BNP elevated -judicious fluid management -medical optimization 10. Adrenal Insufficiency -solucortef 11. Oral lesions: improving 12. Hypothyroidism; tsh elevated -on synthroid 13. Hypocalcemia with hypoalbuminemia -optimize nutrition 14. Bilateral upper and lower extremity edema: hx(+) Thrombus in upper arm; lower leg pain, doppler (-) -elevate extremities -supportive 15. Hypoalbuminemia: 2/2 malnutrition +/- inflammation; decreased; tolerating tf ; -nutrition optimization -as above Thank you, Problems: Subjective 24 Hr Interval Summary Drowsy. Comfortable on vent. No c/o pain, discomfort. No fevers, chills, n/v/d/ dysuria. Bowel function. Exam/Review of Systems Vital Signs Vitals Vital Signs Date Time Temp Pulse Resp B/P Pulse Ox O2 Delivery O2 Flow Rate FiO2 06/01/17 15:38 97.4 63 18 133/64 100 06/01/17 15:11 30 Intake and Output 05/31/17 05/31/17 06/01/17 15:00 23:00 07:00 Intake Total 960 ml 897 ml Output Total 400 ml 350 ml Balance 560 ml 547 ml Exam Free Text/Dictation Constitutional: somnolent, easy to arouse alert pleasant Head: atraumatic, normocephalic Eyes: PERRL, nl lids, nl sclera; right eye slightly red ENMT: No mucosa pink and moist (pink and moist with healing perioral lesions), tooth missing, Neck: non-tender, supple, tracheostomy AC setting currently Respiratory: diminished, comfortable on vent, min sputum Cardiovascular: nl pulses, regular rate and rhythm, Gastrointestinal: non distended, GT tubes site no erythema, no drainage, non tenderness, bowel sounds x 4 quads, soft; tf ongoing Genitourinary - Female: nl external genitalia; mims with yellow output with sediments Musculoskeletal: nl extremities to inspection Extremities: normal pulses, bilateral upper/lower extremity edema 1+; improved extremity edema Neurological: responsive Skin: nl turgor, No rash or lesions Lymph: nl lymph node Results Result Diagram: 06/01/17 0825 06/01/17 0601 PATRICK QUINTERO MD Jun 01, 2017 16:27
[2017-06-02] VITALS (23 sets, daily range): BP systolic 133–163; BP diastolic 65–81; PULSE 68–81; RESP 10–23
[2017-06-02] MEDS: METOCLOPRAMIDE 10 MG INJ IV SCH ×4 (00:45→18:01)
[2017-06-02] MEDS: INSULIN ASPART [NOVOLOG] 3 ML PEN SC SCH ×4 (00:52→18:02)
[2017-06-02] MEDS: LEVALBUTEROL (HFA) 15 GM INHALER INH SCH ×4 (01:01→20:00)
[2017-06-02] MEDS: HYDROCODONE/APAP (5/325) TAB GTB SCH ×5 (03:30→21:51)
[2017-06-02] MEDS: LANSOPRAZOLE 30 MG CAP GTB SCH ×2 (06:03→18:01)
[2017-06-02] MEDS: LEVOTHYROXINE 100 MCG TAB GTB SCH (06:03)
[2017-06-02 07:41] LABS: BASOPHILS % 0.3 % (0.0-2.0); EOSINOPHILS # 0.1 10^3/ul (0.0-0.5); EOSINOPHILS % 0.9 % (0.0-7.0); HEMATOCRIT 28.7 % (37.0-47.0); HEMOGLOBIN 9.3 g/dl (12.0-16.0); LYMPHOCYTES # 0.8 10^3/ul (0.8-2.9); LYMPHOCYTES % 7.5 % (15.0-51.0); MEAN CORPUSCULAR HEMOGLOBIN 30.6 pg (29.0-33.0); MEAN CORPUSCULAR HGB CONC 32.4 g/dl (32.0-37.0); MEAN CORPUSCULAR VOLUME 94.4 fl (82.0-101.0); MEAN PLATELET VOLUME 10.6 fl (7.4-10.4); MONOCYTES % 8.7 % (0.0-11.0); NEUTROPHILS % 78.4 % (39.0-77.0); PLATELET COUNT 220 10^3/UL (140-415); RED BLOOD COUNT 3.04 10^6/ul (4.20-5.40); RED CELL DISTRIBUTION WIDTH 20.5 % (11.5-14.5); WHITE BLOOD COUNT 10.9 10^3/ul (4.8-10.8)
[2017-06-02 07:44] LABS: CALCIUM 8.5 mg/dl (8.4-10.2); CREATININE 2.64 mg/dl (0.44-1.00); PHOSPHORUS 4.1 mg/dl (2.5-4.9); POTASSIUM 4.3 mmol/L (3.5-5.1)
--- NOTE | 2017-06-02 09:31 | PN ---
Date/Time of Note Date/Time of Note DATE: 06/02/17 TIME: 09:27 Assessment/Plan Lines/Catheters IV Catheter Type (from [facility]): Amrit catch Mims in Place (from [facility]): Yes Assessment/Plan Chief Complaint/Hosp Course 1. Cholelithiasis: Tolerating tube feeds; no abdominal pain/discomfort/bloating ; +bowel function -No surgical intervention required at this time 2. Pneumonia: Recurrent +sputum cultures; appears comfortable, no fevers, s/p abx; CXR: with nodule-possible aspirated tooth; ct chest: no foreign body -pulmonary toilet -wean as tolerated 3. Vent dependent respiratory failure: 2/2 aspiration PNA+ CHF;reintubated and extubated, coded 04/21 and 05/01; comfortable on vent;AC setting -as above 4. KEYONNA: likely 2/2 septic shock; with + urine output; will need [facility] HD, poss cath placement -judicious fluid management -avoid nephrotoxic agents 5. Uncontrolled Afib: s/p amiodarone drip, on oral amiodarone; episodes of Afib Now SR -medical optimization 6. Leukocytosis with lactic acidosis: 2/2 pneumonia +/- steroids vs.fungemia vs other (urine, repeat blood cultures negative); labile -per ID 7. Macrocytic anemia: chronic vs. dilutional vs. acute bleed vs. b12/folate deficiency; hh stable -monitor -Transfuse as needed 8. Electrolyte imbalance: (hyponatremia, hypokalemia); improved -electrolyte optimization 9. CHF: BNP elevated -judicious fluid management -medical optimization 10. Adrenal Insufficiency -solucortef 11. Oral lesions: improving 12. Hypothyroidism; tsh elevated -on synthroid 13. Hypocalcemia with hypoalbuminemia -optimize nutrition 14. Bilateral upper and lower extremity edema: hx(+) Thrombus in upper arm; lower leg pain, doppler (-) -elevate extremities -supportive 15. Hypoalbuminemia: 2/2 malnutrition +/- inflammation; decreased; tolerating tf ; -nutrition optimization -as above Patient seen and examined in collaboration with Dr. Justus Antonio. Thank you Problems: Subjective 24 Hr Interval Summary Feels awake. Comfortable on vent. Continues to have uop. No c/o pain, sob, congested cough, n/v/d/dysuria. Tolerating tf. +bowel function. Exam/Review of Systems Vital Signs Vitals Vital Signs Date Time Temp Pulse Resp B/P Pulse Ox O2 Delivery O2 Flow Rate FiO2 06/02/17 09:12 72 06/02/17 07:49 97.8 18 156/81 97 06/02/17 07:40 30 Intake and Output 06/01/17 06/01/17 06/02/17 15:00 23:00 07:00 Intake Total 1060 ml 929 ml Output Total 500 ml 500 ml Balance 560 ml 429 ml Exam Free Text/Dictation Constitutional: fully awake, alert pleasant Head: atraumatic, normocephalic Eyes: PERRL, nl lids, nl sclera; right eye slightly red ENMT: No mucosa pink and moist (pink and moist with healing perioral lesions), tooth missing, Neck: non-tender, supple, tracheostomy AC setting currently Respiratory: diminished, comfortable on vent, min sputum Cardiovascular: nl pulses, regular rate and rhythm, Gastrointestinal: non distended, GT tubes site no erythema, no drainage, non tenderness, bowel sounds x 4 quads, soft; tf ongoing Genitourinary - Female: nl external genitalia; mims with yellow output with sediments Musculoskeletal: nl extremities to inspection Extremities: normal pulses, bilateral upper/lower extremity edema 1+; improved extremity edema Neurological: responsive Skin: nl turgor, No rash or lesions Lymph: nl lymph node Results Result Diagram: 06/02/17 0725 06/02/17 0617 ADDISON FREGOSO NP Jun 02, 2017 09:31
[2017-06-02] MEDS: CHLORHEXIDINE GLUCONATE 15 ML UD CUP MT SCH ×2 (10:09→21:51)
[2017-06-02] MEDS: NYSTATIN SUSP 5 ML CUP PO SCH ×4 (10:10→21:51)
[2017-06-02] MEDS: VITAMIN A & D 5 GM OINT PACKET TOP SCH ×3 (10:10→21:52)
[2017-06-02] MEDS: VITAMIN B COMPLEX/VIT C CAP PO SCH (10:10)
[2017-06-02] MEDS: MULTIVITAMINS 30 ML CUP GTB SCH (10:10)
[2017-06-02] MEDS: CITALOPRAM 20 MG TAB NGT SCH (10:10)
[2017-06-02] MEDS: ASPIRIN 81 MG TAB NGT SCH (10:11)
[2017-06-02] MEDS: METOPROLOL 25 MG TAB GTB SCH ×4 (10:12→21:52)
[2017-06-02] MEDS: AMIODARONE 200 MG TAB GTB SCH ×2 (10:13→21:52)
--- NOTE | 2017-06-02 10:54 | PN ---
Date/Time of Note Date/Time of Note DATE: 06/02/17 TIME: 10:49 Assessment/Plan VTE Prophylaxis VTE Prophylaxis Intervention: other Lines/Catheters IV Catheter Type (from Nrsg): Amrit catch Central line still needed: Yes Urinary Cath still in place: Yes Reason Cath still needed: urinary retention Assessment/Plan Chief Complaint/Hosp Course SUBJECTIVE DATA: no new events noted. no nausea, vomiting, new rash, hematuria, melena, tachypnea trach in place vent settings and cardiac strips were reviewed has a temp line in place for HD which has poor blood flow last hd was few days ago uop is increasing without diuretics d/w at the bedside OBJECTIVE DATA: HEENT: Head is normocephalic. NECK: Supple. HEART: Regular rate. LUNGS: Diminished breath sounds at the base. ABDOMEN: Soft, nontender to palpation. No rebound or guarding. EXTREMITIES: Negative for clubbing, cyanosis. Positive edema. DERMATOLOGIC: No rashes. MUSCULOSKELETAL: No joint effusion. NEUROLOGIC: Unchanged exam. MEDICATIONS: Reviewed. LABORATORY AND DIAGNOSTIC DATA: Reviewed. 1. Ventilator-dependent respiratory failure. Vent settings reviewed. ABGs reviewed. Continue to monitor. Follow up with Pulmonary. there no foreign body aspiration per CT results 2. History of thyroid cancer with tracheomalacia. The patient is status post trach. Has been evaluated by ENT. Continue to monitor. 3. Nonoliguric acute kidney injury on top of chronic kidney disease. she has good uop and her access is not working well. will hold HD and reassess in am. will need HD if no improvement in the next 24-48 hours 4. Volume overload secondary to acute kidney injury and CHF. 5. Sepsis, status post shock secondary to aspiration pneumonia. The patient is completing antibiotic course. 6. Adrenal insufficiency. Continue current steroid regimen. 7. Acute encephalopathy, etiology is toxic metabolic, uremic, improving. Continue dialysis. Continue supportive care. 8. Hypothyroidism. Continue Synthroid. 9. Hyponatremia, improving. Continue dialysis. 10. Anemia. Monitor H and H levels. 11. Congestive heart failure. Continue medical management. 12. Left upper extremity deep vein thrombosis. The patient's anticoagulation is on hold secondary to recent gastrointestinal bleed. 13. Dysphagia, status post tube feeding. 14. Status post GI bleed. 15. Gastrointestinal and deep venous thrombosis prophylaxis. Problems: Exam/Review of Systems Vital Signs Vitals Vital Signs Date Time Temp Pulse Resp B/P Pulse Ox O2 Delivery O2 Flow Rate FiO2 06/02/17 09:12 72 06/02/17 09:10 15 99 30 06/02/17 07:49 97.8 156/81 Intake and Output 06/01/17 06/01/17 06/02/17 15:00 23:00 07:00 Intake Total 1060 ml 929 ml Output Total 500 ml 500 ml Balance 560 ml 429 ml Results Result Diagram: 06/02/1725 06/02/17 0617 Results 24 hrs Laboratory Tests Test 06/01/17 11:20 06/01/17 12:00 06/01/17 17:46 06/02/17 00:46 Bedside Glucose 148 152 152 Urine Color YELLOW Urine Clarity CLOUDY A Urine pH 6.0 Urine Specific [place] 1.008 Urine Ketones NEGATIVE Urine Nitrite NEGATIVE Urine Bilirubin NEGATIVE Urine Urobilinogen NEGATIVE Urine Leukocyte Esterase 3+ H Urine Microscopic RBC 19 H Urine Microscopic WBC > 182 H Urine Bacteria FEW A Urine Hemoglobin 2+ H Urine Glucose NEGATIVE Urine Total Protein NEGATIVE Test 06/02/17 06:12 06/02/17 06:17 06/02/17 07:25 Bedside Glucose 151 Sodium Level 131 L Potassium Level 4.3 Chloride Level 88 L Carbon Dioxide Level 29 Anion Gap 18 #H Blood Urea Nitrogen 112 H Creatinine 2.64 H Glucose Level 127 Calcium Level 8.5 Phosphorus Level 4.1 Magnesium Level 3.0 H White Blood Count 10.9 H Red Blood Count 3.04 #L Hemoglobin 9.3 L Hematocrit 28.7 L Mean Corpuscular Volume 94.4 Mean Corpuscular Hemoglobin 30.6 Mean Corpuscular Hemoglobin Concent 32.4 Red Cell Distribution Width 20.5 H Platelet Count 220 Mean Platelet Volume 10.6 H Neutrophils % 78.4 H Lymphocytes % 7.5 L Monocytes % 8.7 Eosinophils % 0.9 Basophils % 0.3 Nucleated Red Blood Cells % 0.0 Neutrophils # (Manual) 9 H Lymphocytes # 0.8 Monocytes # 1.0 H Eosinophils # 0.1 Basophils # 0.0 Nucleated Red Blood Cells # 0.0 Medications Medications Current Medications Metoprolol Tartrate (Lopressor) 5 mg Q4H PRN IV HR>110 Hold SBP<110 Last administered on 04/20/17t 17:36; Admin Dose 5 MG; Start 04/11/17 at 13:30 Miscellaneous Information 1 ea NOTE XX ; Start 04/11/17 at 16:30 Glucose (Glutose) 15 gm Q15M PRN PO DECREASED GLUCOSE Last administered on 05/07 03:27; Admin Dose 15 GM; Start 04/11/17 at 16:30 Glucose (Glutose) 22.5 gm Q15M PRN PO DECREASED GLUCOSE; Start 04/11/17 at 16: 30 Dextrose (D50w Syringe) 25 ml Q15M PRN IV DECREASED GLUCOSE Last administered on 04/12/17 23:56; Admin Dose 25 ML; Start 04/11/17 at 16:30 Dextrose (D50w Syringe) 50 ml Q15M PRN IV DECREASED GLUCOSE; Start 04/11/17 at 16:30 Glucagon (Glucagen) 1 mg Q15M PRN IM DECREASED GLUCOSE; Start 04/11/17 at 16:30 Glucose (Glutose) 15 gm Q15M PRN BUCCAL DECREASED GLUCOSE; Start 04/11/17 at 16 :30 Metoclopramide HCl (Reglan) 10 mg Q6 IV Last administered on 06/02/17 06:04; Admin Dose 10 MG; Start 04/12/17 at 18:00 Insulin Aspart (Novolog Insulin Pen) NOVOLOG *MILD* ALGORI... Q6H SC Last administered on 06/02/17 06:25; Admin Dose 1 UNIT; Start 04/15/17 at 00:00 IV Flush (NS 10 ml) 10 ml PRN PRN IV FLUSH LINE; Start 04/15/17 at 13:00 Amiodarone HCl (Cordarone) 200 mg BID GTB Last administered on 06/02/17 10:13 ; Admin Dose 200 MG; Start 04/16/17 at 13:00 Heparin Sodium (Porcine) (Heparin (5000 Units/0.5 ml)) 5,000 unit BID SC Last administered on 04/30/17 21:03; Admin Dose 5,000 UNIT; Start 04/18/17 at 16:22; Status Future Hold Citalopram Hydrobromide (Celexa) 20 mg DAILY NGT Last administered on 10:10; Admin Dose 20 MG; Start 04/19/17 at 09:00 Hydralazine HCl (Apresoline) 20 mg Q6H PRN IV sbp ABOVE 160 Last administered on 05/22/17 19:59; Admin Dose 20 MG; Start 04/18/17 at 18:30 Chlorhexidine Gluconate (Peridex) 15 ml BID MT Last administered on 06/02/17 10:09; Admin Dose 15 ML; Start 04/22/17 at 21:00 Vitamin A/Vitamin D (Vitamin A & D Oint) 1 applic TID TOP Last administered on 06/02/17 10:10; Admin Dose 1 APPLIC; Start 04/22/17 at 21:00 Vitamin A/Vitamin D (Vitamin A & D Oint) 1 applic TID PRN TOP DRYNESS Last administered on 04/22/17 15:29; Admin Dose 1 APPLIC; Start 04/22/17 at 15:00 Acetaminophen/ Hydrocodone Bitart ([place] (5/325)) 1 tab Q6H GTB Last administered on 06/02/17 07:33; Admin Dose 1 TAB; Start 04/22/17 at 21:30 Diltiazem HCl 5 mg 5 mg Q1H PRN IV HEART RATE GREATER THAN 120 Last administered on 04/29/17 06:17; Admin Dose 5 MG; Start 04/29/17 at 05:00 Sodium Chloride 1,000 ml @ 0 mls/hr Q0M IV Last administered on 05/01/17 03: 00; Admin Dose 1,000 MLS/HR; Start 05/01/17 at 03:00 Sodium Chloride 1,000 ml @ 0 mls/hr Q0M IV Last administered on 05/01/17 04: 00; Admin Dose 1,000 MLS/HR; Start 05/01/17 at 03:30 Diltiazem HCl (Cardizem-D5W 125 Mg/125 ml Drip) 125 ml @ 5 mls/hr TITRATE IV Last administered on 05/02/17 19:11; Admin Dose 5 MLS/HR; Start 05/02/17 at 19: 00 Metoprolol Tartrate (Lopressor) 25 mg QID GTB Last administered on 06/02/17 10 :12; Admin Dose 25 MG; Start 05/07/17 at 09:00 Vitamin B Complex/ Vitamin C (Berocca) 1 cap DAILY PO Last administered on 06/02 10:10; Admin Dose 1 CAP; Start 05/13/17 at 09:00 Nystatin (Nystatin Susp) 5 ml QID PO Last administered on 06/02/17 10:10; Admin Dose 5 ML; Start 05/12/17 at 17:00 Aspirin (Aspirin) 81 mg DAILY NGT Last administered on 06/02/17 10:11; Admin Dose 81 MG; Start 05/19/17 at 09:00 Lansoprazole (Prevacid) 30 mg BID@,18 GTB Last administered on 06/02/17 06: 03; Admin Dose 30 MG; Start 05/20/17 at 18:00 Multivitamins (Multivitamin) 30 ml DAILY GTB Last administered on 06/02/17 10: 10; Admin Dose 30 ML; Start 05/24/17 at 09:00 DERECK QUINTERO DO Jun 02, 2017 10:53
--- NOTE | 2017-06-02 11:42 | CONS ---
Date/Time of Note Date/Time of Note DATE: 06/02/17 TIME: 11:39 Assessment/Plan Assessment/Plan Additional Assessment/Plan Ventilator settings; SIMV of 8, pressure support of 10, PEEP of 5, 30% FiO2, tidal volume 500. Assessment and recommendations; 1. Patient admitted with sepsis status post antibiotic treatment with marked overall clinical improvement. 2. Anemia. 3. Chronic respiratory failure. 4. COPD. 5. Prior history of glossal cancer. 6. History of tracheostomy 2. 7. Failure to be weaned from ventilator due to apneic episodes during sleep. 8. Chronic renal failure. Continue current supportive care. Consider transfer to rehab facility. Consultation Date/Type/Reason Admit Date/Time Apr 11, 2017 at 11:28 Initial Consult Date 05/01/17 Type of Consultation: Pulmonary/critical care Referring Provider: NINA MACIEL DO 24 HR Interval Summary Free Text/Dictation Patient's condition remains stable. Has remained hemodynamically stable no untoward events reported. General exam; elderly woman, on ventilator via tracheostomy currently in no distress. Awake and alert. Exam/Review of Systems Vital Signs Vitals Vital Signs Date Time Temp Pulse Resp B/P Pulse Ox O2 Delivery O2 Flow Rate FiO2 06/02/17 11:31 98.4 70 18 163/76 99 06/02/17 11:15 30 Intake and Output 06/01/17 06/01/17 06/02/17 15:00 23:00 07:00 Intake Total 1060 ml 929 ml Output Total 500 ml 500 ml Balance 560 ml 429 ml Exam HEENT exam; supple neck, no JVD. No lymphadenopathy. Midline trachea. No thyromegaly. Pharynx is clear. Tracheostomy in place. Patient has fair dentition. Chest exam; clear to auscultation. S1-S2 audible, no murmurs. Regular rhythm. Abdomen exam; soft, nontender. Nondistended. G-tube in place. Bowel sounds audible. Extremity exam; 2+ pitting edema involving lower extremities bilaterally. [employer]OCI[employer] CHEMISTRY exam; no focal motor deficit, patient however still exhibiting profound muscular weakness. Results Result Diagram: 06/02/17 0725 06/02/17 0617 Results 24 hrs Laboratory Tests Test 06/01/17 12:00 06/01/17 17:46 06/02/17 00:46 06/02/17 06:12 Urine Color YELLOW Urine Clarity CLOUDY A Urine pH 6.0 Urine Specific [place] 1.008 Urine Ketones NEGATIVE Urine Nitrite NEGATIVE Urine Bilirubin NEGATIVE Urine Urobilinogen NEGATIVE Urine Leukocyte Esterase 3+ H Urine Microscopic RBC 19 H Urine Microscopic WBC > 182 H Urine Bacteria FEW A Urine Hemoglobin 2+ H Urine Glucose NEGATIVE Urine Total Protein NEGATIVE Bedside Glucose 152 152 151 Test 06/02/17 06:17 06/02/17 07:25 Sodium Level 131 L Potassium Level 4.3 Chloride Level 88 L Carbon Dioxide Level 29 Anion Gap 18 #H Blood Urea Nitrogen 112 H Creatinine 2.64 H Glucose Level 127 Calcium Level 8.5 Phosphorus Level 4.1 Magnesium Level 3.0 H White Blood Count 10.9 H Red Blood Count 3.04 #L Hemoglobin 9.3 L Hematocrit 28.7 L Mean Corpuscular Volume 94.4 Mean Corpuscular Hemoglobin 30.6 Mean Corpuscular Hemoglobin Concent 32.4 Red Cell Distribution Width 20.5 H Platelet Count 220 Mean Platelet Volume 10.6 H Neutrophils % 78.4 H Lymphocytes % 7.5 L Monocytes % 8.7 Eosinophils % 0.9 Basophils % 0.3 Nucleated Red Blood Cells % 0.0 Neutrophils # (Manual) 9 H Lymphocytes # 0.8 Monocytes # 1.0 H Eosinophils # 0.1 Basophils # 0.0 Nucleated Red Blood Cells # 0.0 Medications Medications Current Medications Metoprolol Tartrate (Lopressor) 5 mg Q4H PRN IV HR>110 Hold SBP<110 Last administered on 04/20/17 17:36; Admin Dose 5 MG; Start 04/11/17 at 13:30 Miscellaneous Information 1 ea NOTE XX ; Start 04/11/17 at 16:30 Glucose (Glutose) 15 gm Q15M PRN PO DECREASED GLUCOSE Last administered on 05/07 03:27; Admin Dose 15 GM; Start 04/11/17 at 16:30 Glucose (Glutose) 22.5 gm Q15M PRN PO DECREASED GLUCOSE; Start 04/11/17 at 16: 30 Dextrose (D50w Syringe) 25 ml Q15M PRN IV DECREASED GLUCOSE Last administered on 04/12/17 23:56; Admin Dose 25 ML; Start 04/11/17 at 16:30 Dextrose (D50w Syringe) 50 ml Q15M PRN IV DECREASED GLUCOSE; Start 04/11/17 at 16:30 Glucagon (Glucagen) 1 mg Q15M PRN IM DECREASED GLUCOSE; Start 04/11/17 at 16:30 Glucose (Glutose) 15 gm Q15M PRN BUCCAL DECREASED GLUCOSE; Start 04/11/17 at 16 :30 Metoclopramide HCl (Reglan) 10 mg Q6 IV Last administered on 06/02/17 06:04; Admin Dose 10 MG; Start 04/12/17 at 18:00 Insulin Aspart (Novolog Insulin Pen) NOVOLOG *MILD* ALGORI... Q6H SC Last administered on 06/02/17 06:25; Admin Dose 1 UNIT; Start 04/15/17 at 00:00 IV Flush (NS 10 ml) 10 ml PRN PRN IV FLUSH LINE; Start 04/15/17 at 13:00 Amiodarone HCl (Cordarone) 200 mg BID GTB Last administered on 06/02/17 10:13 ; Admin Dose 200 MG; Start 04/16/17 at 13:00 Heparin Sodium (Porcine) (Heparin (5000 Units/0.5 ml)) 5,000 unit BID SC Last administered on 04/30/17 21:03; Admin Dose 5,000 UNIT; Start 04/18/17 at 16:22; Status Future Hold Citalopram Hydrobromide (Celexa) 20 mg DAILY NGT Last administered on 10:10; Admin Dose 20 MG; Start 04/19/17 at 09:00 Hydralazine HCl (Apresoline) 20 mg Q6H PRN IV sbp ABOVE 160 Last administered on 05/22/17 19:59; Admin Dose 20 MG; Start 04/18/17 at 18:30 Chlorhexidine Gluconate (Peridex) 15 ml BID MT Last administered on 06/02/17 10:09; Admin Dose 15 ML; Start 04/22/17 at 21:00 Vitamin A/Vitamin D (Vitamin A & D Oint) 1 applic TID TOP Last administered on 06/02/17 10:10; Admin Dose 1 APPLIC; Start 04/22/17 at 21:00 Vitamin A/Vitamin D (Vitamin A & D Oint) 1 applic TID PRN TOP DRYNESS Last administered on 04/22/17 15:29; Admin Dose 1 APPLIC; Start 04/22/17 at 15:00 Acetaminophen/ Hydrocodone Bitart ([place] (5/325)) 1 tab Q6H GTB Last administered on 06/02/17 07:33; Admin Dose 1 TAB; Start 04/22/17 at 21:30 Diltiazem HCl 5 mg 5 mg Q1H PRN IV HEART RATE GREATER THAN 120 Last administered on 04/29/17 06:17; Admin Dose 5 MG; Start 04/29/17 at 05:00 Sodium Chloride 1,000 ml @ 0 mls/hr Q0M IV Last administered on 05/01/17 03: 00; Admin Dose 1,000 MLS/HR; Start 05/01/17 at 03:00 Sodium Chloride 1,000 ml @ 0 mls/hr Q0M IV Last administered on 05/01/17 04: 00; Admin Dose 1,000 MLS/HR; Start 05/01/17 at 03:30 Diltiazem HCl (Cardizem-D5W 125 Mg/125 ml Drip) 125 ml @ 5 mls/hr TITRATE IV Last administered on 05/02/17 19:11; Admin Dose 5 MLS/HR; Start 05/02/17 at 19: 00 Metoprolol Tartrate (Lopressor) 25 mg QID GTB Last administered on 06/02/17 10 :12; Admin Dose 25 MG; Start 05/07/17 at 09:00 Vitamin B Complex/ Vitamin C (Berocca) 1 cap DAILY PO Last administered on 06/02 10:10; Admin Dose 1 CAP; Start 05/13/17 at 09:00 Nystatin (Nystatin Susp) 5 ml QID PO Last administered on 06/02/17 10:10; Admin Dose 5 ML; Start 05/12/17 at 17:00 Aspirin (Aspirin) 81 mg DAILY NGT Last administered on 06/02/17 10:11; Admin Dose 81 MG; Start 05/19/17 at 09:00 Lansoprazole (Prevacid) 30 mg BID@,18 GTB Last administered on 06/02/17 06: 03; Admin Dose 30 MG; Start 05/20/17 at 18:00 Multivitamins (Multivitamin) 30 ml DAILY GTB Last administered on 06/02/17 10: 10; Admin Dose 30 ML; Start 05/24/17 at 09:00 EIMLIANO IHCKS Jun 02, 2017 11:42
--- NOTE | 2017-06-02 15:18 | CONS ---
Date/Time of Note Date/Time of Note DATE: 06/02/17 TIME: 15:16 Assessment/Plan Assessment/Plan Chief Complaint/Hosp Course SUBJECTIVE: No acute events overnight. No fevers, looks comfortable, at bedside Temperature 98.4 pulse 70 respirations 18 blood pressure 163/76 saturation 99 on 30 FiO2 WBC 10.9 H&H 9.3 and 28.7 platelets 220 neutrophils 78.4 Indwelling: Trach, bag Latif, right femoral Amrit catheter. PHYSICAL EXAMINATION: This is a fragile, chronically ill- appearing, elderly woman who is awake, in no distress. HEENT: Head atraumatic, normocephalic. Sclerae anicteric. Buccal mucosa dry. NECK: Supple. Tracheostomy present. CHEST: Chest rise symmetric. Breath sounds diminished at bases. HEART: S1, S2. ABDOMEN: Soft. Bowel sounds present. EXTREMITIES: Without cyanosis. SKIN: Positive for anasarca. ASSESSMENT: 1. Status post septic shock, urinary tract infection, pneumonia. 2. Ktoql-wo-ykcltgu respiratory failure. 3. Status post fungemia. 4. Yhpge-rj-kcvikis kidney disease. 5. History of Clostridium difficile colitis. 6. Left upper extremity deep vein thrombosis. PLAN: The patient remains stable off antibiotics, continue present care, vent support per pulmonary, repeat cx's prn OLIVIA RN Problems: Consultation Date/Type/Reason Admit Date/Time Apr 11, 2017 at 11:28 Initial Consult Date 04/12/17 Type of Consultation: id Referring Provider: NINA MACIEL DO Exam/Review of Systems Vital Signs Vitals Vital Signs Date Time Temp Pulse Resp B/P Pulse Ox O2 Delivery O2 Flow Rate FiO2 06/02/17 13:05 80 14 98 30 06/02/17 11:31 98.4 163/76 Intake and Output 06/01/17 06/01/17 06/02/17 15:00 23:00 07:00 Intake Total 1060 ml 929 ml Output Total 500 ml 500 ml Balance 560 ml 429 ml Results Result Diagram: 06/02/17 0725 06/02/17 0617 Results 24 hrs Laboratory Tests Test 06/01/17 17:46 06/02/17 00:46 06/02/17 06:12 06/02/17 06:17 Bedside Glucose 152 152 151 Sodium Level 131 L Potassium Level 4.3 Chloride Level 88 L Carbon Dioxide Level 29 Anion Gap 18 #H Blood Urea Nitrogen 112 H Creatinine 2.64 H Glucose Level 127 Calcium Level 8.5 Phosphorus Level 4.1 Magnesium Level 3.0 H Test 06/02/17 07:25 06/02/17 13:08 White Blood Count 10.9 H Red Blood Count 3.04 #L Hemoglobin 9.3 L Hematocrit 28.7 L Mean Corpuscular Volume 94.4 Mean Corpuscular Hemoglobin 30.6 Mean Corpuscular Hemoglobin Concent 32.4 Red Cell Distribution Width 20.5 H Platelet Count 220 Mean Platelet Volume 10.6 H Neutrophils % 78.4 H Lymphocytes % 7.5 L Monocytes % 8.7 Eosinophils % 0.9 Basophils % 0.3 Nucleated Red Blood Cells % 0.0 Neutrophils # (Manual) 9 H Lymphocytes # 0.8 Monocytes # 1.0 H Eosinophils # 0.1 Basophils # 0.0 Nucleated Red Blood Cells # 0.0 Bedside Glucose 157 Medications Medications Current Medications Metoprolol Tartrate (Lopressor) 5 mg Q4H PRN IV HR>110 Hold SBP<110 Last administered on 04/20/17 17:36; Admin Dose 5 MG; Start 04/11/17 at 13:30 Miscellaneous Information 1 ea NOTE XX ; Start 04/11/17 at 16:30 Glucose (Glutose) 15 gm Q15M PRN PO DECREASED GLUCOSE Last administered on 05/07 03:27; Admin Dose 15 GM; Start 04/11/17 at 16:30 Glucose (Glutose) 22.5 gm Q15M PRN PO DECREASED GLUCOSE; Start 04/11/17 at 16: 30 Dextrose (D50w Syringe) 25 ml Q15M PRN IV DECREASED GLUCOSE Last administered on 04/12/17 23:56; Admin Dose 25 ML; Start 04/11/17 at 16:30 Dextrose (D50w Syringe) 50 ml Q15M PRN IV DECREASED GLUCOSE; Start 04/11/17 at 16:30 Glucagon (Glucagen) 1 mg Q15M PRN IM DECREASED GLUCOSE; Start 04/11/17 at 16:30 Glucose (Glutose) 15 gm Q15M PRN BUCCAL DECREASED GLUCOSE; Start 04/11/17 at 16 :30 Metoclopramide HCl (Reglan) 10 mg Q6 IV Last administered on 06/02/17 13:10; Admin Dose 10 MG; Start 04/12/17 at 18:00 Insulin Aspart (Novolog Insulin Pen) NOVOLOG *MILD* ALGORI... Q6H SC Last administered on 06/02/17 13:15; Admin Dose 1 UNIT; Start 04/15/17 at 00:00 IV Flush (NS 10 ml) 10 ml PRN PRN IV FLUSH LINE; Start 04/15/17 at 13:00 Amiodarone HCl (Cordarone) 200 mg BID GTB Last administered on 06/02/17 10:13 ; Admin Dose 200 MG; Start 04/16/17 at 13:00 Heparin Sodium (Porcine) (Heparin (5000 Units/0.5 ml)) 5,000 unit BID SC Last administered on 04/30/17 21:03; Admin Dose 5,000 UNIT; Start 04/18/17 at 16:22; Status Future Hold Citalopram Hydrobromide (Celexa) 20 mg DAILY NGT Last administered on 10:10; Admin Dose 20 MG; Start 04/19/17 at 09:00 Hydralazine HCl (Apresoline) 20 mg Q6H PRN IV sbp ABOVE 160 Last administered on 05/22/17 19:59; Admin Dose 20 MG; Start 04/18/17 at 18:30 Chlorhexidine Gluconate (Peridex) 15 ml BID MT Last administered on 06/02/17 10:09; Admin Dose 15 ML; Start 04/22/17 at 21:00 Vitamin A/Vitamin D (Vitamin A & D Oint) 1 applic TID TOP Last administered on 06/02/17 13:11; Admin Dose 1 APPLIC; Start 04/22/17 at 21:00 Vitamin A/Vitamin D (Vitamin A & D Oint) 1 applic TID PRN TOP DRYNESS Last administered on 04/22/17 15:29; Admin Dose 1 APPLIC; Start 04/22/17 at 15:00 Acetaminophen/ Hydrocodone Bitart ([place] (5/325)) 1 tab Q6H GTB Last administered on 06/02/17 07:33; Admin Dose 1 TAB; Start 04/22/17 at 21:30 Diltiazem HCl 5 mg 5 mg Q1H PRN IV HEART RATE GREATER THAN 120 Last administered on 04/29/17 06:17; Admin Dose 5 MG; Start 04/29/17 at 05:00 Sodium Chloride 1,000 ml @ 0 mls/hr Q0M IV Last administered on 05/01/17 03: 00; Admin Dose 1,000 MLS/HR; Start 05/01/17 at 03:00 Sodium Chloride 1,000 ml @ 0 mls/hr Q0M IV Last administered on 05/01/17 04: 00; Admin Dose 1,000 MLS/HR; Start 05/01/17 at 03:30 Diltiazem HCl (Cardizem-D5W 125 Mg/125 ml Drip) 125 ml @ 5 mls/hr TITRATE IV Last administered on 05/02/17 19:11; Admin Dose 5 MLS/HR; Start 05/02/17 at 19: 00 Metoprolol Tartrate (Lopressor) 25 mg QID GTB Last administered on 06/02/17 13 :11; Admin Dose 25 MG; Start 05/07/17 at 09:00 Vitamin B Complex/ Vitamin C (Berocca) 1 cap DAILY PO Last administered on 06/02 10:10; Admin Dose 1 CAP; Start 05/13/17 at 09:00 Nystatin (Nystatin Susp) 5 ml QID PO Last administered on 06/02/17 13:10; Admin Dose 5 ML; Start 05/12/17 at 17:00 Aspirin (Aspirin) 81 mg DAILY NGT Last administered on 06/02/17 10:11; Admin Dose 81 MG; Start 05/19/17 at 09:00 Lansoprazole (Prevacid) 30 mg BID@18 GTB Last administered on 06/02/17 06: 03; Admin Dose 30 MG; Start 05/20/17 at 18:00 Multivitamins (Multivitamin) 30 ml DAILY GTB Last administered on 06/02/17 10: 10; Admin Dose 30 ML; Start 05/24/17 at 09:00 LORETO MCKEON NP Jun 02, 2017 15:18
--- NOTE | 2017-06-02 15:35 | CONS ---
Date/Time of Note Date/Time of Note DATE: 06/02/17 TIME: 15:34 Consult Date/Type/Reason Admit Date/Time Apr 11, 2017 at 11:28 Initial Consult Date 04/12/17 Type of Consultation: id Ordering Provider: NINA MACIEL DO Subjective CARDIOLOGY FOLLOW UP NOTE: D/W staff and rhythm was reviewed. pt remains in NSR. no afib overnight no chest pain or pressure or palpitations. pt still s/p trach on vent on tele. s/p transfusion on 05/14/17 and getting transfused again 05/26/17 pt is more awake and is able to sit now Objective: General: s/p trach on vent HEENT: NC/AT. . oropharynx with multiple lesions. . NECK: NO JVD. no stridor. s/p trach on vent CV: RRR. systolic ejection murmur; no gallop or rubs. PULM: + mild rhonchi. no wheezes. GI: SOFT, NT, ND, no rebound or guarding s/p PEG Extremity: 1-2+ B/L LE edema. no clubbing. neuro: awake and alert. Psych: calm rectal: deferred Derm: multiple echymosis Objective Vital Signs Date Time Temp Pulse Resp B/P Pulse Ox O2 Delivery O2 Flow Rate FiO2 06/02/17 15:23 98.4 69 18 158/67 98 06/02/17 15:15 30 Intake and Output 06/01/17 06/01/17 06/02/17 15:00 23:00 07:00 Intake Total 1060 ml 929 ml Output Total 500 ml 500 ml Balance 560 ml 429 ml Results/Medications Result Diagram: 06/02/17 0725 06/02/17 0617 Results 24 hrs Laboratory Tests Test 06/01/17 17:46 06/02/17 00:46 06/02/17 06:12 06/02/17 06:17 Bedside Glucose 152 152 151 Sodium Level 131 L Potassium Level 4.3 Chloride Level 88 L Carbon Dioxide Level 29 Anion Gap 18 #H Blood Urea Nitrogen 112 H Creatinine 2.64 H Glucose Level 127 Calcium Level 8.5 Phosphorus Level 4.1 Magnesium Level 3.0 H Test 06/02/17 07:25 06/02/17 13:08 White Blood Count 10.9 H Red Blood Count 3.04 #L Hemoglobin 9.3 L Hematocrit 28.7 L Mean Corpuscular Volume 94.4 Mean Corpuscular Hemoglobin 30.6 Mean Corpuscular Hemoglobin Concent 32.4 Red Cell Distribution Width 20.5 H Platelet Count 220 Mean Platelet Volume 10.6 H Neutrophils % 78.4 H Lymphocytes % 7.5 L Monocytes % 8.7 Eosinophils % 0.9 Basophils % 0.3 Nucleated Red Blood Cells % 0.0 Neutrophils # (Manual) 9 H Lymphocytes # 0.8 Monocytes # 1.0 H Eosinophils # 0.1 Basophils # 0.0 Nucleated Red Blood Cells # 0.0 Bedside Glucose 157 Medications Current Medications Metoprolol Tartrate (Lopressor) 5 mg Q4H PRN IV HR>110 Hold SBP<110 Last administered on 04/20/17 17:36; Admin Dose 5 MG; Start 04/11/17 at 13:30 Miscellaneous Information 1 ea NOTE XX ; Start 04/11/17 at 16:30 Glucose (Glutose) 15 gm Q15M PRN PO DECREASED GLUCOSE Last administered on 05/07 03:27; Admin Dose 15 GM; Start 04/11/17 at 16:30 Glucose (Glutose) 22.5 gm Q15M PRN PO DECREASED GLUCOSE; Start 04/11/17 at 16: 30 Dextrose (D50w Syringe) 25 ml Q15M PRN IV DECREASED GLUCOSE Last administered on 04/12/17 23:56; Admin Dose 25 ML; Start 04/11/17 at 16:30 Dextrose (D50w Syringe) 50 ml Q15M PRN IV DECREASED GLUCOSE; Start 04/11/17 at 16:30 Glucagon (Glucagen) 1 mg Q15M PRN IM DECREASED GLUCOSE; Start 04/11/17 at 16:30 Glucose (Glutose) 15 gm Q15M PRN BUCCAL DECREASED GLUCOSE; Start 04/11/17 at 16 :30 Metoclopramide HCl (Reglan) 10 mg Q6 IV Last administered on 06/02/17 13:10; Admin Dose 10 MG; Start 04/12/17 at 18:00 Insulin Aspart (Novolog Insulin Pen) NOVOLOG *MILD* ALGORI... Q6H SC Last administered on 06/02/17 13:15; Admin Dose 1 UNIT; Start 04/15/17 at 00:00 IV Flush (NS 10 ml) 10 ml PRN PRN IV FLUSH LINE; Start 04/15/17 at 13:00 Amiodarone HCl (Cordarone) 200 mg BID GTB Last administered on 06/02/17 10:13 ; Admin Dose 200 MG; Start 04/16/17 at 13:00 Heparin Sodium (Porcine) (Heparin (5000 Units/0.5 ml)) 5,000 unit BID SC Last administered on 04/30/17 21:03; Admin Dose 5,000 UNIT; Start 04/18/17 at 16:22; Status Future Hold Citalopram Hydrobromide (Celexa) 20 mg DAILY NGT Last administered on 10:10; Admin Dose 20 MG; Start 04/19/17 at 09:00 Hydralazine HCl (Apresoline) 20 mg Q6H PRN IV sbp ABOVE 160 Last administered on 05/22/17 19:59; Admin Dose 20 MG; Start 04/18/17 at 18:30 Chlorhexidine Gluconate (Peridex) 15 ml BID MT Last administered on 06/02/17 10:09; Admin Dose 15 ML; Start 04/22/17 at 21:00 Vitamin A/Vitamin D (Vitamin A & D Oint) 1 applic TID TOP Last administered on 06/02/17 13:11; Admin Dose 1 APPLIC; Start 04/22/17 at 21:00 Vitamin A/Vitamin D (Vitamin A & D Oint) 1 applic TID PRN TOP DRYNESS Last administered on 04/22/17 15:29; Admin Dose 1 APPLIC; Start 04/22/17 at 15:00 Acetaminophen/ Hydrocodone Bitart ([place] (5/325)) 1 tab Q6H GTB Last administered on 06/02/17 07:33; Admin Dose 1 TAB; Start 04/22/17 at 21:30 Diltiazem HCl 5 mg 5 mg Q1H PRN IV HEART RATE GREATER THAN 120 Last administered on 04/29/17 06:17; Admin Dose 5 MG; Start 04/29/17 at 05:00 Sodium Chloride 1,000 ml @ 0 mls/hr Q0M IV Last administered on 05/01/17 03: 00; Admin Dose 1,000 MLS/HR; Start 05/01/17 at 03:00 Sodium Chloride 1,000 ml @ 0 mls/hr Q0M IV Last administered on 05/01/17 04: 00; Admin Dose 1,000 MLS/HR; Start 05/01/17 at 03:30 Diltiazem HCl (Cardizem-D5W 125 Mg/125 ml Drip) 125 ml @ 5 mls/hr TITRATE IV Last administered on 05/02/17 19:11; Admin Dose 5 MLS/HR; Start 05/02/17 at 19: 00 Metoprolol Tartrate (Lopressor) 25 mg QID GTB Last administered on 06/02/17 13 :11; Admin Dose 25 MG; Start 05/07/17 at 09:00 Vitamin B Complex/ Vitamin C (Berocca) 1 cap DAILY PO Last administered on 06/02 10:10; Admin Dose 1 CAP; Start 05/13/17 at 09:00 Nystatin (Nystatin Susp) 5 ml QID PO Last administered on 06/02/17 13:10; Admin Dose 5 ML; Start 05/12/17 at 17:00 Aspirin (Aspirin) 81 mg DAILY NGT Last administered on 06/02/17 10:11; Admin Dose 81 MG; Start 05/19/17 at 09:00 Lansoprazole (Prevacid) 30 mg BID@06,18 GTB Last administered on 06/02/17 06: 03; Admin Dose 30 MG; Start 05/20/17 at 18:00 Multivitamins (Multivitamin) 30 ml DAILY GTB Last administered on 06/02/17 10: 10; Admin Dose 30 ML; Start 05/24/17 at 09:00 Assessment/Plan Chief Complaint/Hosp Course 1. acute on chronic hypoxemic respiratory failure: 2. S/P NSTEMI: due to demand ischemia. 3. CHF/ fluid overload: due to diastolic heart failure 4. moderate 5. Arrhythmia and P afib, frequent PVC: currently in NSR. 6. ANEMIA: s/p multiple transfusion 7. s/p pneumonia, . 8. s/p sepsis and shock: BP is stable now. 9. Anasarca 10. s/p cardiopulm arrest due to resp failure 11. renal failure 12. coagulopathy Rec: cont resp care as per PULM Team. correct lytes prn. CONT betablocker as tolerated. . cont thyroid supplement . cont tele monitoring HD/ ultrafiltration will be deferred to renal. transfuse prn cont low dose ASA 81 mg only due to recurrent anemia. THANK YOU. Problems: FRANCISCO BLACKWOOD MD Jun 02, 2017 15:34
[2017-06-03] VITALS (24 sets, daily range): BP systolic 100–189; BP diastolic 47–91; PULSE 63–86; RESP 11–29
[2017-06-03] MEDS: METOCLOPRAMIDE 10 MG INJ IV SCH ×5 (01:21→23:46)
[2017-06-03] MEDS: INSULIN ASPART [NOVOLOG] 3 ML PEN SC SCH ×5 (01:26→23:50)
[2017-06-03] MEDS: LEVALBUTEROL (HFA) 15 GM INHALER INH SCH ×4 (01:38→19:36)
[2017-06-03] MEDS: HYDROCODONE/APAP (5/325) TAB GTB SCH ×4 (04:16→21:14)
[2017-06-03] MEDS: hydrALAzine 20 MG INJ IV PRN (04:17)
[2017-06-03] MEDS: LANSOPRAZOLE 30 MG CAP GTB SCH ×2 (05:22→16:47)
[2017-06-03 06:58] LABS: ABNORMAL IP MESSAGE 1; BASOPHIL # 0.1 10^3/ul (0.0-0.1); BASOPHILS % 0.5 % (0.0-2.0); EOSINOPHILS # 0.1 10^3/ul (0.0-0.5); EOSINOPHILS % 0.5 % (0.0-7.0); LYMPHOCYTES # 0.8 10^3/ul (0.8-2.9); LYMPHOCYTES % 6.5 % (15.0-51.0); MEAN CORPUSCULAR HEMOGLOBIN 31.1 pg (29.0-33.0); MEAN CORPUSCULAR HGB CONC 33.3 g/dl (32.0-37.0); MEAN CORPUSCULAR VOLUME 93.4 fl (82.0-101.0); MEAN PLATELET VOLUME 10.7 fl (7.4-10.4); MONOCYTE # 1.3 10^3/ul (0.3-0.9); MONOCYTES % 10.1 % (0.0-11.0); PLATELET COUNT 251 10^3/UL (140-415); RED BLOOD COUNT 2.89 10^6/ul (4.20-5.40); RED CELL DISTRIBUTION WIDTH 19.9 % (11.5-14.5); WHITE BLOOD COUNT 12.7 10^3/ul (4.8-10.8)
[2017-06-03 07:06] LABS: POSITIVE DIFF @See below
[2017-06-03 07:29] LABS: CALCIUM 8.4 mg/dl (8.4-10.2); CREATININE 2.55 mg/dl (0.44-1.00); MAGNESIUM 2.9 mg/dl (1.7-2.5); PHOSPHORUS 4.2 mg/dl (2.5-4.9); POTASSIUM 4.6 mmol/L (3.5-5.1)
[2017-06-03] MEDS: NYSTATIN SUSP 5 ML CUP PO SCH ×2 (09:00→12:46)
[2017-06-03] MEDS: CITALOPRAM 20 MG TAB NGT SCH (09:10)
[2017-06-03] MEDS: ASPIRIN 81 MG TAB NGT SCH (09:10)
[2017-06-03] MEDS: LEVOTHYROXINE 100 MCG TAB GTB SCH (09:10)
[2017-06-03] MEDS: VITAMIN B COMPLEX/VIT C CAP PO SCH (09:11)
[2017-06-03] MEDS: CHLORHEXIDINE GLUCONATE 15 ML UD CUP MT SCH ×2 (09:11→21:13)
[2017-06-03] MEDS: METOPROLOL 25 MG TAB GTB SCH ×4 (09:11→21:13)
[2017-06-03] MEDS: MULTIVITAMINS 30 ML CUP GTB SCH (09:11)
[2017-06-03] MEDS: AMIODARONE 200 MG TAB GTB SCH ×2 (09:11→21:13)
[2017-06-03] MEDS: VITAMIN A & D 5 GM OINT PACKET TOP SCH ×3 (09:12→21:13)
--- NOTE | 2017-06-03 15:26 | PN ---
Date/Time of Note Date/Time of Note DATE: 06/03/17 TIME: 15:18 Assessment/Plan Lines/Catheters IV Catheter Type (from [facility]): Central Line Mims in Place (from [facility]): Yes Assessment/Plan Chief Complaint/Hosp Course 1. Cholelithiasis: Tolerating tube feeds; no abdominal pain/discomfort/bloating ; +bowel function -No surgical intervention required at this time 2. Pneumonia: Recurrent +sputum cultures; appears comfortable, no fevers, s/p abx; CXR: with nodule-possible aspirated tooth; ct chest: no foreign body -pulmonary toilet -wean as tolerated 3. Vent dependent respiratory failure: 2/2 aspiration PNA+ CHF;reintubated and extubated, coded 04/21 and 05/01; comfortable on vent;AC setting -as above 4. KEYONNA: likely 2/2 septic shock; with + urine output; will need intermediate HD, poss cath placement -judicious fluid management -avoid nephrotoxic agents 5. Uncontrolled Afib: s/p amiodarone drip, on oral amiodarone; episodes of Afib Now SR -medical optimization 6. Leukocytosis with lactic acidosis: 2/2 pneumonia +/- steroids vs.fungemia vs other (urine, repeat blood cultures negative); labile -per ID 7. Macrocytic anemia: chronic vs. dilutional vs. acute bleed vs. b12/folate deficiency; hh stable -monitor -Transfuse as needed 8. Electrolyte imbalance: (hyponatremia, hypokalemia); improved -electrolyte optimization 9. CHF: BNP elevated -judicious fluid management -medical optimization 10. Adrenal Insufficiency -solucortef 11. Oral lesions: improving 12. Hypothyroidism; tsh elevated -on synthroid 13. Hypocalcemia with hypoalbuminemia -optimize nutrition 14. Bilateral upper and lower extremity edema: hx(+) Thrombus in upper arm; lower leg pain, doppler (-) -elevate extremities -supportive 15. Hypoalbuminemia: 2/2 malnutrition +/- inflammation; decreased; tolerating tf ; -nutrition optimization -as above Patient seen and examined in collaboration with Dr. Justus Antonio. Thank you Problems: Subjective 24 Hr Interval Summary Feels well. No sob, congested cough. Comfortable on vent. + bowel function. No n /v/d/dysuria. +uop in mims. Exam/Review of Systems Vital Signs Vitals Vital Signs Date Time Temp Pulse Resp B/P Pulse Ox O2 Delivery O2 Flow Rate FiO2 06/03/17 13:05 65 13 99 30 06/03/17 11:50 97.4 100/53 Intake and Output 06/02/17 06/02/17 06/03/17 15:00 23:00 07:00 Intake Total 820 ml Output Total 450 ml Balance 370 ml Exam Free Text/Dictation Constitutional: fully awake, alert pleasant Head: atraumatic, normocephalic Eyes: PERRL, nl lids, nl sclera; right eye slightly red ENMT: No mucosa pink and moist (pink and moist with healing perioral lesions), tooth missing, Neck: non-tender, supple, tracheostomy AC setting currently Respiratory: diminished, comfortable on vent, min sputum Cardiovascular: nl pulses, regular rate and rhythm, Gastrointestinal: non distended, GT tubes site no erythema, no drainage, non tenderness, bowel sounds x 4 quads, soft; tf ongoing Genitourinary - Female: nl external genitalia; mims with yellow output with sediments Musculoskeletal: nl extremities to inspection Extremities: normal pulses, bilateral upper/lower extremity edema 1+; improved extremity edema Neurological: responsive Skin: nl turgor, No rash or lesions Lymph: nl lymph node Results Result Diagram: 06/03/1708 06/03/1708 ADDISON FREGOSO NP Jun 03, 2017 15:26
--- NOTE | 2017-06-03 16:55 | PN ---
Date/Time of Note Date/Time of Note DATE: 06/03/17 TIME: 16:54 Assessment/Plan VTE Prophylaxis VTE Prophylaxis Intervention: other Lines/Catheters IV Catheter Type (from Nrsg): Central Line Central line still needed: Yes Urinary Cath still in place: Yes Reason Cath still needed: urinary retention Assessment/Plan Chief Complaint/Hosp Course SUBJECTIVE DATA: no new events noted. no nausea, vomiting, new rash, hematuria, melena, tachypnea trach in place vent settings and cardiac strips were reviewed has a temp line in place for HD which has poor blood flow last hd was few days ago uop is increasing without diuretics d/w at the bedside OBJECTIVE DATA: HEENT: Head is normocephalic. NECK: Supple. HEART: Regular rate. LUNGS: Diminished breath sounds at the base. ABDOMEN: Soft, nontender to palpation. No rebound or guarding. EXTREMITIES: Negative for clubbing, cyanosis. Positive edema. DERMATOLOGIC: No rashes. MUSCULOSKELETAL: No joint effusion. NEUROLOGIC: Unchanged exam. MEDICATIONS: Reviewed. LABORATORY AND DIAGNOSTIC DATA: Reviewed. 1. Ventilator-dependent respiratory failure. Vent settings reviewed. ABGs reviewed. Continue to monitor. Follow up with Pulmonary. there no foreign body aspiration per CT results 2. History of thyroid cancer with tracheomalacia. The patient is status post trach. Has been evaluated by ENT. Continue to monitor. 3. Nonoliguric acute kidney injury on top of chronic kidney disease. UOP is now decreasing and she is uremic. will ask Dr Gonzales to place a permcath. will dc old murphy (non-functional) 4. Volume overload secondary to acute kidney injury and CHF. 5. Sepsis, status post shock secondary to aspiration pneumonia. The patient is completing antibiotic course. 6. Adrenal insufficiency. Continue current steroid regimen. 7. Acute encephalopathy, etiology is toxic metabolic, uremic, improving. Continue dialysis. Continue supportive care. 8. Hypothyroidism. Continue Synthroid. 9. Hyponatremia, improving. Continue dialysis. 10. Anemia. Monitor H and H levels. 11. Congestive heart failure. Continue medical management. 12. Left upper extremity deep vein thrombosis. The patient's anticoagulation is on hold secondary to recent gastrointestinal bleed. 13. Dysphagia, status post tube feeding. 14. Status post GI bleed. 15. Gastrointestinal and deep venous thrombosis prophylaxis. Problems: Exam/Review of Systems Vital Signs Vitals Vital Signs Date Time Temp Pulse Resp B/P Pulse Ox O2 Delivery O2 Flow Rate FiO2 06/03/17 16:30 65 06/03/17 15:27 97.5 18 112/54 99 06/03/17 15:15 30 Intake and Output 06/02/17 06/02/17 06/03/17 14:59 22:59 06:59 Intake Total 820 ml Output Total 450 ml Balance 370 ml Results Result Diagram: 06/03/17 0608 06/03/17 0608 Results 24 hrs Laboratory Tests Test 06/02/17 17:54 06/03/17 01:17 06/03/17 05:21 06/03/17 06:06 Bedside Glucose 149 173 163 Lab Scanned Report BLOOD TRANSFUSION Test 06/03/17 06:08 06/03/17 12:44 White Blood Count 12.7 H Red Blood Count 2.89 L Hemoglobin 9.0 L Hematocrit 27.0 L Mean Corpuscular Volume 93.4 Mean Corpuscular Hemoglobin 31.1 Mean Corpuscular Hemoglobin Concent 33.3 Red Cell Distribution Width 19.9 H Platelet Count 251 Mean Platelet Volume 10.7 H Neutrophils % 76.0 Lymphocytes % 6.5 L Monocytes % 10.1 Eosinophils % 0.5 Basophils % 0.5 Nucleated Red Blood Cells % 0.0 Neutrophils # (Manual) 10 H Lymphocytes # 0.8 Monocytes # 1.3 H Eosinophils # 0.1 Basophils # 0.1 Nucleated Red Blood Cells # 0.0 Sodium Level 127 L Potassium Level 4.6 Chloride Level 86 L Carbon Dioxide Level 28 Anion Gap 18 H Blood Urea Nitrogen 120 H Creatinine 2.55 H Glucose Level 129 Calcium Level 8.4 Phosphorus Level 4.2 Magnesium Level 2.9 H Bedside Glucose 151 Medications Medications Current Medications Metoprolol Tartrate (Lopressor) 5 mg Q4H PRN IV HR>110 Hold SBP<110 Last administered on 04/20/17 17:36; Admin Dose 5 MG; Start 04/11/17 at 13:30 Miscellaneous Information 1 ea NOTE XX ; Start 04/11/17 at 16:30 Glucose (Glutose) 15 gm Q15M PRN PO DECREASED GLUCOSE Last administered on 05/07 03:27; Admin Dose 15 GM; Start 04/11/17 at 16:30 Glucose (Glutose) 22.5 gm Q15M PRN PO DECREASED GLUCOSE; Start 04/11/17 at 16: 30 Dextrose (D50w Syringe) 25 ml Q15M PRN IV DECREASED GLUCOSE Last administered on 04/12/17 23:56; Admin Dose 25 ML; Start 04/11/17 at 16:30 Dextrose (D50w Syringe) 50 ml Q15M PRN IV DECREASED GLUCOSE; Start 04/11/17 at 16:30 Glucagon (Glucagen) 1 mg Q15M PRN IM DECREASED GLUCOSE; Start 04/11/17 at 16:30 Glucose (Glutose) 15 gm Q15M PRN BUCCAL DECREASED GLUCOSE; Start 04/11/17 at 16 :30 Metoclopramide HCl (Reglan) 10 mg Q6 IV Last administered on 06/03/17 12:50; Admin Dose 10 MG; Start 04/12/17 at 18:00 Insulin Aspart (Novolog Insulin Pen) NOVOLOG *MILD* ALGORI... Q6H SC Last administered on 06/03/17 12:53; Admin Dose 1 UNIT; Start 04/15/17 at 00:00 IV Flush (NS 10 ml) 10 ml PRN PRN IV FLUSH LINE; Start 04/15/17 at 13:00 Amiodarone HCl (Cordarone) 200 mg BID GTB Last administered on 06/03/17 09:11 ; Admin Dose 200 MG; Start 04/16/17 at 13:00 Heparin Sodium (Porcine) (Heparin (5000 Units/0.5 ml)) 5,000 unit BID SC Last administered on 04/30/17 21:03; Admin Dose 5,000 UNIT; Start 04/18/17 at 16:22; Status Future Hold Citalopram Hydrobromide (Celexa) 20 mg DAILY NGT Last administered on 09:10; Admin Dose 20 MG; Start 04/19/17 at 09:00 Hydralazine HCl (Apresoline) 20 mg Q6H PRN IV sbp ABOVE 160 Last administered on 06/03/17 04:17; Admin Dose 20 MG; Start 04/18/17 at 18:30 Chlorhexidine Gluconate (Peridex) 15 ml BID MT Last administered on 06/03/17 09:11; Admin Dose 15 ML; Start 04/22/17 at 21:00 Vitamin A/Vitamin D (Vitamin A & D Oint) 1 applic TID TOP Last administered on 06/03/17 12:51; Admin Dose 1 APPLIC; Start 04/22/17 at 21:00 Vitamin A/Vitamin D (Vitamin A & D Oint) 1 applic TID PRN TOP DRYNESS Last administered on 04/22/17 15:29; Admin Dose 1 APPLIC; Start 04/22/17 at 15:00 Acetaminophen/ Hydrocodone Bitart ([place] (5/325)) 1 tab Q6H GTB Last administered on 06/03/17 09:11; Admin Dose 1 TAB; Start 04/22/17 at 21:30 Diltiazem HCl 5 mg 5 mg Q1H PRN IV HEART RATE GREATER THAN 120 Last administered on 04/29/17 06:17; Admin Dose 5 MG; Start 04/29/17 at 05:00 Sodium Chloride 1,000 ml @ 0 mls/hr Q0M IV Last administered on 05/01/17 03: 00; Admin Dose 1,000 MLS/HR; Start 05/01/17 at 03:00 Sodium Chloride 1,000 ml @ 0 mls/hr Q0M IV Last administered on 05/01/17 04: 00; Admin Dose 1,000 MLS/HR; Start 05/01/17 at 03:30 Diltiazem HCl (Cardizem-D5W 125 Mg/125 ml Drip) 125 ml @ 5 mls/hr TITRATE IV Last administered on 05/02/17 19:11; Admin Dose 5 MLS/HR; Start 05/02/17 at 19: 00 Metoprolol Tartrate (Lopressor) 25 mg QID GTB Last administered on 06/03/17 09 :11; Admin Dose 25 MG; Start 05/07/17 at 09:00 Vitamin B Complex/ Vitamin C (Berocca) 1 cap DAILY PO Last administered on 06/03 09:11; Admin Dose 1 CAP; Start 05/13/17 at 09:00 Aspirin (Aspirin) 81 mg DAILY NGT Last administered on 06/03/17 09:10; Admin Dose 81 MG; Start 05/19/17 at 09:00 Lansoprazole (Prevacid) 30 mg BID@,18 GTB Last administered on 06/03/17 05: 22; Admin Dose 30 MG; Start 05/20/17 at 18:00 Multivitamins (Multivitamin) 30 ml DAILY GTB Last administered on 06/03/17t 09: 11; Admin Dose 30 ML; Start 05/24/17 at 09:00 DERECK QUINTERO DO Jun 03, 2017 16:55
--- NOTE | 2017-06-03 17:41 | CONS ---
Date/Time of Note Date/Time of Note DATE: 06/03/17 TIME: 17:39 Consult Date/Type/Reason Admit Date/Time Apr 11, 2017 at 11:28 Initial Consult Date 04/12/17 Type of Consultation: CARDIOLOGY Ordering Provider: NINA MACIEL DO Subjective CARDIOLOGY FOLLOW UP NOTE: D/W staff and rhythm was reviewed. pt remains in NSR. no afib overnight D/W no chest pain or pressure or palpitations. pt still s/p trach on vent on tele. s/p transfusion on 05/14/17 and getting transfused again 05/26/17 pt is more lethargic today Objective: General: s/p trach on vent HEENT: NC/AT. . oropharynx with multiple lesions. . NECK: NO JVD. no stridor. s/p trach on vent CV: RRR. systolic ejection murmur; no gallop or rubs. PULM: + mild rhonchi. no wheezes. GI: SOFT, NT, ND, no rebound or guarding s/p PEG Extremity: 1-2+ B/L LE edema. no clubbing. neuro: lethargic. Psych: calm rectal: deferred Derm: multiple echymosis Objective Vital Signs Date Time Temp Pulse Resp B/P Pulse Ox O2 Delivery O2 Flow Rate FiO2 06/03/17 16:30 65 06/03/17 15:27 97.5 18 112/54 99 06/03/17 15:15 30 Intake and Output 06/02/17 06/02/17 06/03/17 15:00 23:00 07:00 Intake Total 820 ml Output Total 450 ml Balance 370 ml Results/Medications Result Diagram: 06/03/17 0608 06/03/17 0608 Results 24 hrs Laboratory Tests Test 06/02/17 17:54 06/03/17 01:17 06/03/17 05:21 06/03/17 06:06 Bedside Glucose 149 173 163 Lab Scanned Report BLOOD TRANSFUSION Test 06/03/17 06:08 06/03/17 12:44 White Blood Count 12.7 H Red Blood Count 2.89 L Hemoglobin 9.0 L Hematocrit 27.0 L Mean Corpuscular Volume 93.4 Mean Corpuscular Hemoglobin 31.1 Mean Corpuscular Hemoglobin Concent 33.3 Red Cell Distribution Width 19.9 H Platelet Count 251 Mean Platelet Volume 10.7 H Neutrophils % 76.0 Lymphocytes % 6.5 L Monocytes % 10.1 Eosinophils % 0.5 Basophils % 0.5 Nucleated Red Blood Cells % 0.0 Neutrophils # (Manual) 10 H Lymphocytes # 0.8 Monocytes # 1.3 H Eosinophils # 0.1 Basophils # 0.1 Nucleated Red Blood Cells # 0.0 Sodium Level 127 L Potassium Level 4.6 Chloride Level 86 L Carbon Dioxide Level 28 Anion Gap 18 H Blood Urea Nitrogen 120 H Creatinine 2.55 H Glucose Level 129 Calcium Level 8.4 Phosphorus Level 4.2 Magnesium Level 2.9 H Bedside Glucose 151 Medications Current Medications Metoprolol Tartrate (Lopressor) 5 mg Q4H PRN IV HR>110 Hold SBP<110 Last administered on 04/20/17 17:36; Admin Dose 5 MG; Start 04/11/17 at 13:30 Miscellaneous Information 1 ea NOTE XX ; Start 04/11/17 at 16:30 Glucose (Glutose) 15 gm Q15M PRN PO DECREASED GLUCOSE Last administered on 05/07 03:27; Admin Dose 15 GM; Start 04/11/17 at 16:30 Glucose (Glutose) 22.5 gm Q15M PRN PO DECREASED GLUCOSE; Start 04/11/17 at 16: 30 Dextrose (D50w Syringe) 25 ml Q15M PRN IV DECREASED GLUCOSE Last administered on 04/12/17 23:56; Admin Dose 25 ML; Start 04/11/17 at 16:30 Dextrose (D50w Syringe) 50 ml Q15M PRN IV DECREASED GLUCOSE; Start 04/11/17 at 16:30 Glucagon (Glucagen) 1 mg Q15M PRN IM DECREASED GLUCOSE; Start 04/11/17 at 16:30 Glucose (Glutose) 15 gm Q15M PRN BUCCAL DECREASED GLUCOSE; Start 04/11/17 at 16 :30 Metoclopramide HCl (Reglan) 10 mg Q6 IV Last administered on 06/03/17 16:47; Admin Dose 10 MG; Start 04/12/17 at 18:00 Insulin Aspart (Novolog Insulin Pen) NOVOLOG *MILD* ALGORI... Q6H SC Last administered on 06/03/17 12:53; Admin Dose 1 UNIT; Start 04/15/17 at 00:00 IV Flush (NS 10 ml) 10 ml PRN PRN IV FLUSH LINE; Start 04/15/17 at 13:00 Amiodarone HCl (Cordarone) 200 mg BID GTB Last administered on 06/03/17 09:11 ; Admin Dose 200 MG; Start 04/16/17 at 13:00 Heparin Sodium (Porcine) (Heparin (5000 Units/0.5 ml)) 5,000 unit BID SC Last administered on 04/30/17 21:03; Admin Dose 5,000 UNIT; Start 04/18/17 at 16:22; Status Future Hold Citalopram Hydrobromide (Celexa) 20 mg DAILY NGT Last administered on 09:10; Admin Dose 20 MG; Start 04/19/17 at 09:00 Hydralazine HCl (Apresoline) 20 mg Q6H PRN IV sbp ABOVE 160 Last administered on 06/03/17 04:17; Admin Dose 20 MG; Start 04/18/17 at 18:30 Chlorhexidine Gluconate (Peridex) 15 ml BID MT Last administered on 06/03/17 09:11; Admin Dose 15 ML; Start 04/22/17 at 21:00 Vitamin A/Vitamin D (Vitamin A & D Oint) 1 applic TID TOP Last administered on 06/03/17 12:51; Admin Dose 1 APPLIC; Start 04/22/17 at 21:00 Vitamin A/Vitamin D (Vitamin A & D Oint) 1 applic TID PRN TOP DRYNESS Last administered on 04/22/17 15:29; Admin Dose 1 APPLIC; Start 04/22/17 at 15:00 Acetaminophen/ Hydrocodone Bitart ([place] (5/325)) 1 tab Q6H GTB Last administered on 06/03/17 16:47; Admin Dose 1 TAB; Start 04/22/17 at 21:30 Diltiazem HCl 5 mg 5 mg Q1H PRN IV HEART RATE GREATER THAN 120 Last administered on 04/29/17 06:17; Admin Dose 5 MG; Start 04/29/17 at 05:00 Sodium Chloride 1,000 ml @ 0 mls/hr Q0M IV Last administered on 05/01/17 03: 00; Admin Dose 1,000 MLS/HR; Start 05/01/17 at 03:00 Sodium Chloride 1,000 ml @ 0 mls/hr Q0M IV Last administered on 05/01/17 04: 00; Admin Dose 1,000 MLS/HR; Start 05/01/17 at 03:30 Diltiazem HCl (Cardizem-D5W 125 Mg/125 ml Drip) 125 ml @ 5 mls/hr TITRATE IV Last administered on 05/02/17 19:11; Admin Dose 5 MLS/HR; Start 05/02/17 at 19: 00 Metoprolol Tartrate (Lopressor) 25 mg QID GTB Last administered on 06/03/17 16 :47; Admin Dose 25 MG; Start 05/07/17 at 09:00 Vitamin B Complex/ Vitamin C (Berocca) 1 cap DAILY PO Last administered on 06/03 09:11; Admin Dose 1 CAP; Start 05/13/17 at 09:00 Aspirin (Aspirin) 81 mg DAILY NGT Last administered on 06/03/17 09:10; Admin Dose 81 MG; Start 05/19/17 at 09:00 Lansoprazole (Prevacid) 30 mg BID@06,18 GTB Last administered on 06/03/17 16: 47; Admin Dose 30 MG; Start 05/20/17 at 18:00 Multivitamins (Multivitamin) 30 ml DAILY GTB Last administered on 06/03/17 09: 11; Admin Dose 30 ML; Start 05/24/17 at 09:00 Assessment/Plan Chief Complaint/Hosp Course 1. acute on chronic hypoxemic respiratory failure: 2. S/P NSTEMI: due to demand ischemia. 3. CHF/ fluid overload: due to diastolic heart failure 4. moderate 5. Arrhythmia and P afib, frequent PVC: currently in NSR. 6. ANEMIA: s/p multiple transfusion 7. s/p pneumonia, . 8. s/p sepsis and shock: BP is stable now. 9. Anasarca 10. s/p cardiopulm arrest due to resp failure 11. renal failure 12. coagulopathy; resolved now. Rec: cont resp care as per PULM Team. correct lytes prn. CONT betablocker as tolerated. . cont thyroid supplement . cont tele monitoring HD/ ultrafiltration is on hold per renal transfuse prn cont low dose ASA 81 mg only due to recurrent anemia. THANK YOU. Problems: FRANCISCO BLACKWOOD MD Jun 03, 2017 17:40
--- NOTE | 2017-06-03 19:18 | PN ---
DATE: 06/03/2017 SUBJECTIVE DATA: Patient is stable this morning. No new events. OBJECTIVE DATA: VITAL SIGNS: Temperature 98, pulse is 65, blood pressure 100/53, O2 sat 96 percent on FiO2 of 30 percent. Trach site is clean and intact. CARDIAC: S1 and S2, no added sounds or murmurs. CHEST: Diminished air entry bilaterally. ABDOMEN: Soft, nontender. No guarding or rebound. EXTREMITIES: No cyanosis, clubbing or edema. NEUROLOGIC: Generalized weakness. LABORATORY AND DIAGNOSTIC DATA: White count 12.7, hemoglobin 9, platelets of 251. BUN 120, creatinine 2.55, sodium 127. IMPRESSION: 1. Vent dependent respiratory failure. 2. Renal failure with abnormal electrolytes. 3. Uremia. 4. Dysphagia with G-tube. 5. Postoperative fungemia. 6. History of Clostridium difficile colitis. PLAN: 1. Continue current ventilator settings. We will hold off on further weaning given significant electrolyte abnormalities. 2. Will require continued hemodialysis with correction of electrolytes. 3. Continue feeding as tolerated. 4. DVT and GI prophylaxis. Dictated By: Dwayne Mena MD /marquita/millicent /Document#: [id number]
[2017-06-04] VITALS (24 sets, daily range): BP systolic 109–131; BP diastolic 58–64; PULSE 64–71; RESP 9–20
[2017-06-04] MEDS: LEVALBUTEROL (HFA) 15 GM INHALER INH SCH ×4 (01:35→20:20)
--- NOTE | 2017-06-04 02:56 | PN ---
DATE: 06/03/2017 INFECTIOUS DISEASE PROGRESS NOTE SUBJECTIVE DATA: No acute changes overnight. The patient is sleeping. at bedside. No fevers, no events. LABORATORY AND DIAGNOSTIC DATA: WBC 12.7, hemoglobin 9, hematocrit 27, platelets 255, neutrophils 76.0. BUN 120, creatinine 2.55. INDWELLINGS: Trach, PEG, Latif, PICC line, right femoral Amrit catheter. OBJECTIVE DATA: GENERAL: This is a wasted, chronically ill-appearing elderly woman who is in no distress. VITAL SIGNS: Temperature 97.4, pulse 65, respirations 18, blood pressure 100/53, saturation 95 percent on 30 percent FiO2. HEENT: Head atraumatic, normocephalic. Sclerae are anicteric. Buccal mucosa dry. NECK: Supple. RESPIRATORY: Chest rise symmetrical. Breath sounds diminished at the bases. HEART: S1, S2. ABDOMEN: Soft, bowel sounds present. EXTREMITIES: Without cyanosis, with bilateral edema. SKIN: Positive for anasarca. ASSESSMENT: 1. Status post septic shock. 2. Status post fungemia. 3. Status post pneumonia. 4. Acute on chronic respiratory failure requiring a tracheostomy. Status post decannulated in the past. 5. Head and neck cancer. 6. Acute on chronic kidney disease, hemodialysis dependent. 7. Deep venous thrombosis. 8. Failure to thrive. PLAN: The patient remains stable off antibiotics. Continue present care. Follow recommendations of consultants. Discussed with at bedside. Dictated By: Doyle Patton NP /marquita/blanca /Document#: [id number]
[2017-06-04] MEDS: LANSOPRAZOLE 30 MG CAP GTB SCH ×2 (05:42→18:00)
[2017-06-04] MEDS: HYDROCODONE/APAP (5/325) TAB GTB SCH ×4 (05:42→21:30)
[2017-06-04] MEDS: METOCLOPRAMIDE 10 MG INJ IV SCH ×4 (05:42→22:25)
[2017-06-04] MEDS: INSULIN ASPART [NOVOLOG] 3 ML PEN SC SCH ×4 (06:01→22:22)
--- NOTE | 2017-06-04 08:29 | CONS ---
Date/Time of Note Date/Time of Note DATE: 06/04/17 TIME: 08:28 Consult Date/Type/Reason Admit Date/Time Apr 11, 2017 at 11:28 Initial Consult Date 04/12/17 Type of Consultation: CARDIOLOGY Ordering Provider: NINA MACIEL DO Subjective CARDIOLOGY FOLLOW UP NOTE: D/W staff and rhythm was reviewed. pt remains in NSR. no afib overnight D/W no chest pain or pressure or palpitations. pt still s/p trach on vent on tele. s/p transfusion on 05/14/17 and getting transfused again 05/26/17 pt is more lethargic today and plan for HD today Objective: General: s/p trach on vent HEENT: NC/AT. . oropharynx with multiple lesions. . NECK: NO JVD. no stridor. s/p trach on vent CV: RRR. systolic ejection murmur; no gallop or rubs. PULM: + mild rhonchi. no wheezes. GI: SOFT, NT, ND, no rebound or guarding s/p PEG Extremity: 1-2+ B/L LE edema. no clubbing. neuro: lethargic. Psych: calm rectal: deferred Derm: multiple echymosis Objective Vital Signs Date Time Temp Pulse Resp B/P Pulse Ox O2 Delivery O2 Flow Rate FiO2 06/04/17 08:15 98.0 72 20 131/64 99 06/04/17 04:50 30 Intake and Output 06/03/17 06/03/17 06/04/17 15:00 23:00 07:00 Intake Total 1060 ml 810 ml Output Total 400 ml 400 ml Balance 660 ml 410 ml Results/Medications Result Diagram: 06/03/17 0608 06/03/17 0608 Results 24 hrs Laboratory Tests Test 06/03/17 12:44 06/03/17 18:14 06/03/17 23:44 06/04/17 05:46 Bedside Glucose 151 130 160 147 Medications Current Medications Metoprolol Tartrate (Lopressor) 5 mg Q4H PRN IV HR>110 Hold SBP<110 Last administered on 04/20/17t 17:36; Admin Dose 5 MG; Start 04/11/17 at 13:30 Miscellaneous Information 1 ea NOTE XX ; Start 04/11/17 at 16:30 Glucose (Glutose) 15 gm Q15M PRN PO DECREASED GLUCOSE Last administered on 05/07 03:27; Admin Dose 15 GM; Start 04/11/17 at 16:30 Glucose (Glutose) 22.5 gm Q15M PRN PO DECREASED GLUCOSE; Start 04/11/17 at 16: 30 Dextrose (D50w Syringe) 25 ml Q15M PRN IV DECREASED GLUCOSE Last administered on 04/12/17 23:56; Admin Dose 25 ML; Start 04/11/17 at 16:30 Dextrose (D50w Syringe) 50 ml Q15M PRN IV DECREASED GLUCOSE; Start 04/11/17 at 16:30 Glucagon (Glucagen) 1 mg Q15M PRN IM DECREASED GLUCOSE; Start 04/11/17 at 16:30 Glucose (Glutose) 15 gm Q15M PRN BUCCAL DECREASED GLUCOSE; Start 04/11/17 at 16 :30 Metoclopramide HCl (Reglan) 10 mg Q6 IV Last administered on 06/04/17 05:42; Admin Dose 10 MG; Start 04/12/17 at 18:00 Insulin Aspart (Novolog Insulin Pen) NOVOLOG *MILD* ALGORI... Q6H SC Last administered on 06/04/17 06:01; Admin Dose 1 UNIT; Start 04/15/17 at 00:00 IV Flush (NS 10 ml) 10 ml PRN PRN IV FLUSH LINE; Start 04/15/17 at 13:00 Amiodarone HCl (Cordarone) 200 mg BID GTB Last administered on 06/03/17 21:13 ; Admin Dose 200 MG; Start 04/16/17 at 13:00 Heparin Sodium (Porcine) (Heparin (5000 Units/0.5 ml)) 5,000 unit BID SC Last administered on 04/30/17 21:03; Admin Dose 5,000 UNIT; Start 04/18/17 at 16:22; Status Future Hold Citalopram Hydrobromide (Celexa) 20 mg DAILY NGT Last administered on 09:10; Admin Dose 20 MG; Start 04/19/17 at 09:00 Hydralazine HCl (Apresoline) 20 mg Q6H PRN IV sbp ABOVE 160 Last administered on 06/03/17 04:17; Admin Dose 20 MG; Start 04/18/17 at 18:30 Chlorhexidine Gluconate (Peridex) 15 ml BID MT Last administered on 06/03/17 21:13; Admin Dose 15 ML; Start 04/22/17 at 21:00 Vitamin A/Vitamin D (Vitamin A & D Oint) 1 applic TID TOP Last administered on 06/03/17 21:13; Admin Dose 1 APPLIC; Start 04/22/17 at 21:00 Vitamin A/Vitamin D (Vitamin A & D Oint) 1 applic TID PRN TOP DRYNESS Last administered on 04/22/17 15:29; Admin Dose 1 APPLIC; Start 04/22/17 at 15:00 Acetaminophen/ Hydrocodone Bitart ([place] (5/325)) 1 tab Q6H GTB Last administered on 06/04/17 05:42; Admin Dose 1 TAB; Start 04/22/17 at 21:30 Diltiazem HCl 5 mg 5 mg Q1H PRN IV HEART RATE GREATER THAN 120 Last administered on 04/29/17 06:17; Admin Dose 5 MG; Start 04/29/17 at 05:00 Sodium Chloride 1,000 ml @ 0 mls/hr Q0M IV Last administered on 05/01/17 03: 00; Admin Dose 1,000 MLS/HR; Start 05/01/17 at 03:00 Sodium Chloride 1,000 ml @ 0 mls/hr Q0M IV Last administered on 05/01/17 04: 00; Admin Dose 1,000 MLS/HR; Start 05/01/17 at 03:30 Diltiazem HCl (Cardizem-D5W 125 Mg/125 ml Drip) 125 ml @ 5 mls/hr TITRATE IV Last administered on 05/02/17 19:11; Admin Dose 5 MLS/HR; Start 05/02/17 at 19: 00 Metoprolol Tartrate (Lopressor) 25 mg QID GTB Last administered on 06/03/17 21 :13; Admin Dose 25 MG; Start 05/07/17 at 09:00 Vitamin B Complex/ Vitamin C (Berocca) 1 cap DAILY PO Last administered on 06/03 09:11; Admin Dose 1 CAP; Start 05/13/17 at 09:00 Aspirin (Aspirin) 81 mg DAILY NGT Last administered on 06/03/17 09:10; Admin Dose 81 MG; Start 05/19/17 at 09:00 Lansoprazole (Prevacid) 30 mg BID@,18 GTB Last administered on 06/04/17 05: 42; Admin Dose 30 MG; Start 05/20/17 at 18:00 Multivitamins (Multivitamin) 30 ml DAILY GTB Last administered on 06/03/17 09: 11; Admin Dose 30 ML; Start 05/24/17 at 09:00 Assessment/Plan Chief Complaint/Hosp Course 1. acute on chronic hypoxemic respiratory failure: 2. S/P NSTEMI: due to demand ischemia. 3. CHF/ fluid overload: due to diastolic heart failure 4. moderate 5. Arrhythmia and P afib, frequent PVC: currently in NSR. 6. ANEMIA: s/p multiple transfusion 7. s/p pneumonia, . 8. s/p sepsis and shock: BP is stable now. 9. Anasarca 10. s/p cardiopulm arrest due to resp failure 11. renal failure 12. coagulopathy; resolved now. Rec: cont resp care as per PULM Team. correct lytes prn. CONT betablocker as tolerated. . cont thyroid supplement . cont tele monitoring HD/ ultrafiltration as per renal transfuse prn cont low dose ASA 81 mg only due to recurrent anemia. THANK YOU. Problems: FRANCISCO BLACKWOOD MD Jun 04, 2017 08:29
[2017-06-04] MEDS: VITAMIN A & D 5 GM OINT PACKET TOP SCH ×3 (09:00→22:15)
[2017-06-04] MEDS: CHLORHEXIDINE GLUCONATE 15 ML UD CUP MT SCH ×2 (09:00→22:15)
[2017-06-04] MEDS: VITAMIN B COMPLEX/VIT C CAP PO SCH (09:45)
[2017-06-04] MEDS: CITALOPRAM 20 MG TAB NGT SCH (09:46)
[2017-06-04] MEDS: METOPROLOL 25 MG TAB GTB SCH ×4 (09:46→22:15)
[2017-06-04] MEDS: ASPIRIN 81 MG TAB NGT SCH (09:46)
[2017-06-04] MEDS: LEVOTHYROXINE 100 MCG TAB GTB SCH (09:46)
[2017-06-04] MEDS: AMIODARONE 200 MG TAB GTB SCH ×2 (09:46→22:14)
[2017-06-04] MEDS: MULTIVITAMINS 30 ML CUP GTB SCH (09:47)
--- NOTE | 2017-06-04 11:34 | PN ---
DATE: 06/04/2017 SUBJECTIVE DATA: Ms. Glasgow's condition remains stable. Patient remains awake, alert, has remained hemodynamically stable. No untoward events reported. OBJECTIVE DATA: GENERAL: Elderly woman on a ventilator via tracheostomy. Currently in no distress. VITAL SIGNS: Temperature 97.5 degrees Fahrenheit, respiratory rate is 12 per minute, O2 sat 98 percent, blood pressure 108/64, heart rate of 80 per minute. HEENT: Supple neck. Positive JVD. No lymphadenopathy. Midline trachea. No thyromegaly. Tracheostomy in place. The patient has fair dentition. CHEST: Clear to auscultation. CARDIAC: S1, S2 audible. No murmurs. Regular rhythm. ABDOMEN: Soft, nondistended. G-tube in place. Bowel sounds audible. EXTREMITIES: No edema involving upper extremity. Patient does have 2+ pitting edema in lower extremities bilaterally. EKG TECH: Patient is awake, follows simple commands. Is still exhibiting profound muscular weakness. VENTILATOR SETTINGS: SIMV of 8, tidal volume 450, PEEP of 5, pressure support 10, 30 percent FiO2. MEDICATIONS: Reviewed. ASSESSMENT: 1. Patient admitted with severe sepsis, status post antibiotic treatment. 2. Chronic respiratory failure. 3. Generalized muscular weakness including weaning from ventilator, as the patient becomes apneic during sleep. 4. History of prior glossal cancer. 5. Chronic obstructive pulmonary disease. 6. Anemia. 7. Diabetes. 8. Severe generalized deconditioning. 9. Renal failure, on hemodialysis. RECOMMENDATIONS: Continue current supportive care. Patient awaiting placement to a nursing facility. Prognosis is guarded. Dictated By: Layo Bill MD /marquita/laith /Document#: [id number]
--- NOTE | 2017-06-04 13:58 | PN ---
DATE: 06/04/2017 SUBJECTIVE DATA: The patient is stable. No events overnight. No hemoptysis, hematemesis, hematochezia. The patient is pending PermCath placement. OBJECTIVE DATA: VITAL SIGNS: Blood pressure is 111/58, respirations 12, pulse 66, temperature 97.9. HEENT: Head is normocephalic. NECK: Supple. HEART: Regular rate. LUNGS: Diminished breath sounds at the base. ABDOMEN: Soft, nontender to palpation. No guarding. EXTREMITIES: Negative for clubbing, cyanosis. Positive edema. DERMATOLOGIC: No rashes. MUSCULOSKELETAL: No joint effusion. NEUROLOGIC: No change in exam. MEDICATIONS: Reviewed. LABORATORY DATA: From 06/03/2017 was reviewed. ASSESSMENT AND PLAN: 1. Ventilator-dependent respiratory failure. The patient's ventilator settings have been reviewed. Arterial blood gases reviewed. Continue to monitor. Follow up with Pulmonary. 2. History of thyroid cancer with tracheomalacia. The patient is status post ENT evaluation. Continue to monitor. 3. Oliguric acute kidney injury on top of chronic kidney disease. The patient is currently now advanced toward possible end-stage renal disease. The patient is pending PermCath placement. Once catheter is placed the patient will be resumed on hemodialysis. 4. Volume overload secondary to acute congestive heart failure. Continue ultrafiltration with dialysis. 5. Sepsis status post-shock secondary to pneumonia. Continue current antibiotic course. 6. Adrenal insufficiency. Continue current steroid regimen. 7. Acute encephalopathy, etiology is toxic metabolic. Continue to monitor. Continue dialysis. 8. Hypothyroidism. Continue Synthroid. 9. Hyponatremia etiology secondary to end-stage renal disease. The patient required dialysis. Will also discontinue free water flushes. 10. Anemia. Monitor hemoglobin and hematocrit levels. 11. Continue medical management. 12. Continue G-tube feeding. 13. Status post-gastrointestinal bleed. 14. Gastrointestinal and deep venous thrombosis prophylaxis. Continue proton pump inhibitor and sequential leg squeezers. Dictated By: Abebe Valderrama DO /marquita/dahiana /Document#: [id number]
--- NOTE | 2017-06-04 16:19 | CONS ---
Date/Time of Note Date/Time of Note DATE: 06/04/17 TIME: 16:17 Assessment/Plan Assessment/Plan Chief Complaint/Hosp Course SUBJECTIVE: No acute events overnight. No fevers, looks comfortable Indwelling: Trach, PEG Latif PHYSICAL EXAMINATION: This is a fragile, chronically ill- appearing, elderly woman who is awake, in no distress. HEENT: Head atraumatic, normocephalic. Sclerae anicteric. Buccal mucosa dry. NECK: Supple. Tracheostomy present. CHEST: Chest rise symmetric. Breath sounds diminished at bases. HEART: S1, S2. ABDOMEN: Soft. Bowel sounds present. EXTREMITIES: Without cyanosis. SKIN: Positive for anasarca. ASSESSMENT: 1. Status post septic shock, urinary tract infection, pneumonia. 2. Neage-rs-xsakfai respiratory failure. 3. Status post fungemia. 4. Rjqlr-wh-dzrlwod kidney disease. 5. History of Clostridium difficile colitis. 6. Left upper extremity deep vein thrombosis. PLAN: The patient remains stable off antibiotics, pending perm-cath, continue present care, vent support per pulmonary, repeat cx's prn DW Problems: Consultation Date/Type/Reason Admit Date/Time Apr 11, 2017 at 11:28 Initial Consult Date 04/12/17 Type of Consultation: id Referring Provider: NINA MACIEL DO Exam/Review of Systems Vital Signs Vitals Vital Signs Date Time Temp Pulse Resp B/P Pulse Ox O2 Delivery O2 Flow Rate FiO2 06/04/17 16:12 98.0 66 13 109/60 96 06/04/17 15:48 30 Intake and Output 06/03/17 06/03/17 06/04/17 15:00 23:00 07:00 Intake Total 1060 ml 810 ml Output Total 400 ml 400 ml Balance 660 ml 410 ml Results Result Diagram: 06/03/17 0608 06/03/17 0608 Results 24 hrs Laboratory Tests Test 06/03/17 18:14 06/03/17 23:44 06/04/17 05:46 06/04/17 14:13 Bedside Glucose 130 160 147 145 Medications Medications Current Medications Metoprolol Tartrate (Lopressor) 5 mg Q4H PRN IV HR>110 Hold SBP<110 Last administered on 04/20/17t 17:36; Admin Dose 5 MG; Start 04/11/17 at 13:30 Miscellaneous Information 1 ea NOTE XX ; Start 04/11/17 at 16:30 Glucose (Glutose) 15 gm Q15M PRN PO DECREASED GLUCOSE Last administered on 05/07 03:27; Admin Dose 15 GM; Start 04/11/17 at 16:30 Glucose (Glutose) 22.5 gm Q15M PRN PO DECREASED GLUCOSE; Start 04/11/17 at 16: 30 Dextrose (D50w Syringe) 25 ml Q15M PRN IV DECREASED GLUCOSE Last administered on 04/12/17 23:56; Admin Dose 25 ML; Start 04/11/17 at 16:30 Dextrose (D50w Syringe) 50 ml Q15M PRN IV DECREASED GLUCOSE; Start 04/11/17 at 16:30 Glucagon (Glucagen) 1 mg Q15M PRN IM DECREASED GLUCOSE; Start 04/11/17 at 16:30 Glucose (Glutose) 15 gm Q15M PRN BUCCAL DECREASED GLUCOSE; Start 04/11/17 at 16 :30 Metoclopramide HCl (Reglan) 10 mg Q6 IV Last administered on 06/04/17 14:11; Admin Dose 10 MG; Start 04/12/17 at 18:00 Insulin Aspart (Novolog Insulin Pen) NOVOLOG *MILD* ALGORI... Q6H SC Last administered on 06/04/17 06:01; Admin Dose 1 UNIT; Start 04/15/17 at 00:00 IV Flush (NS 10 ml) 10 ml PRN PRN IV FLUSH LINE; Start 04/15/17 at 13:00 Amiodarone HCl (Cordarone) 200 mg BID GTB Last administered on 06/04/17 09:46 ; Admin Dose 200 MG; Start 04/16/17 at 13:00 Heparin Sodium (Porcine) (Heparin (5000 Units/0.5 ml)) 5,000 unit BID SC Last administered on 04/30/17 21:03; Admin Dose 5,000 UNIT; Start 04/18/17 at 16:22; Status Future Hold Citalopram Hydrobromide (Celexa) 20 mg DAILY NGT Last administered on 09:46; Admin Dose 20 MG; Start 04/19/17 at 09:00 Hydralazine HCl (Apresoline) 20 mg Q6H PRN IV sbp ABOVE 160 Last administered on 06/03/17 04:17; Admin Dose 20 MG; Start 04/18/17 at 18:30 Chlorhexidine Gluconate (Peridex) 15 ml BID MT Last administered on 06/04/17 09:00; Admin Dose 15 ML; Start 04/22/17 at 21:00 Vitamin A/Vitamin D (Vitamin A & D Oint) 1 applic TID TOP Last administered on 06/04/17 14:11; Admin Dose 1 APPLIC; Start 04/22/17 at 21:00 Vitamin A/Vitamin D (Vitamin A & D Oint) 1 applic TID PRN TOP DRYNESS Last administered on 04/22/17 15:29; Admin Dose 1 APPLIC; Start 04/22/17 at 15:00 Acetaminophen/ Hydrocodone Bitart ([place] (5/325)) 1 tab Q6H GTB Last administered on 06/04/17 05:42; Admin Dose 1 TAB; Start 04/22/17 at 21:30 Diltiazem HCl 5 mg 5 mg Q1H PRN IV HEART RATE GREATER THAN 120 Last administered on 04/29/17 06:17; Admin Dose 5 MG; Start 04/29/17 at 05:00 Sodium Chloride 1,000 ml @ 0 mls/hr Q0M IV Last administered on 05/01/17 03: 00; Admin Dose 1,000 MLS/HR; Start 05/01/17 at 03:00 Sodium Chloride 1,000 ml @ 0 mls/hr Q0M IV Last administered on 05/01/17 04: 00; Admin Dose 1,000 MLS/HR; Start 05/01/17 at 03:30 Diltiazem HCl (Cardizem-D5W 125 Mg/125 ml Drip) 125 ml @ 5 mls/hr TITRATE IV Last administered on 05/02/17 19:11; Admin Dose 5 MLS/HR; Start 05/02/17 at 19: 00 Metoprolol Tartrate (Lopressor) 25 mg QID GTB Last administered on 06/04/17 09 :46; Admin Dose 25 MG; Start 05/07/17 at 09:00 Vitamin B Complex/ Vitamin C (Berocca) 1 cap DAILY PO Last administered on 06/04 09:45; Admin Dose 1 CAP; Start 05/13/17 at 09:00 Aspirin (Aspirin) 81 mg DAILY NGT Last administered on 06/04/17 09:46; Admin Dose 81 MG; Start 05/19/17 at 09:00 Lansoprazole (Prevacid) 30 mg BID@,18 GTB Last administered on 06/04/17 05: 42; Admin Dose 30 MG; Start 05/20/17 at 18:00 Multivitamins (Multivitamin) 30 ml DAILY GTB Last administered on 06/04/17 09: 47; Admin Dose 30 ML; Start 05/24/17 at 09:00 LORETO MCKEON NP Jun 04, 2017 16:18
[2017-06-05] VITALS (33 sets, daily range): BP systolic 96–143; BP diastolic 52–78; PULSE 69–89; RESP 12–22
[2017-06-05] MEDS: LEVALBUTEROL (HFA) 15 GM INHALER INH SCH ×4 (01:39→20:39)
[2017-06-05] MEDS: HYDROCODONE/APAP (5/325) TAB GTB SCH ×4 (03:30→21:45)
[2017-06-05] MEDS: LANSOPRAZOLE 30 MG CAP GTB SCH ×2 (06:00→17:27)
[2017-06-05] MEDS: INSULIN ASPART [NOVOLOG] 3 ML PEN SC SCH ×3 (06:00→17:49)
[2017-06-05] MEDS: METOCLOPRAMIDE 10 MG INJ IV SCH ×3 (06:24→17:28)
[2017-06-05] MEDS: LEVOTHYROXINE 100 MCG TAB GTB SCH (06:25)
[2017-06-05 07:32] LABS: ABNORMAL IP MESSAGE 1; BASOPHILS % 0.2 % (0.0-2.0); EOSINOPHILS # 0.1 10^3/ul (0.0-0.5); EOSINOPHILS % 1.2 % (0.0-7.0); HEMATOCRIT 24.4 % (37.0-47.0); HEMOGLOBIN 7.8 g/dl (12.0-16.0); LYMPHOCYTES # 0.7 10^3/ul (0.8-2.9); LYMPHOCYTES % 7.5 % (15.0-51.0); MEAN CORPUSCULAR HEMOGLOBIN 30.5 pg (29.0-33.0); MEAN CORPUSCULAR VOLUME 95.3 fl (82.0-101.0); MEAN PLATELET VOLUME 10.6 fl (7.4-10.4); MONOCYTE # 0.9 10^3/ul (0.3-0.9); NEUTROPHILS % 73.1 % (39.0-77.0); PLATELET COUNT 268 10^3/UL (140-415); RED BLOOD COUNT 2.56 10^6/ul (4.20-5.40); RED CELL DISTRIBUTION WIDTH 20.1 % (11.5-14.5); WHITE BLOOD COUNT 8.9 10^3/ul (4.8-10.8)
[2017-06-05 07:42] LABS: POSITIVE DIFF @See below
[2017-06-05] MEDS: METOPROLOL 25 MG TAB GTB SCH ×4 (09:00→21:46)
[2017-06-05] MEDS: CHLORHEXIDINE GLUCONATE 15 ML UD CUP MT SCH ×2 (09:13→21:44)
[2017-06-05] MEDS: VITAMIN A & D 5 GM OINT PACKET TOP SCH ×3 (09:13→21:44)
--- NOTE | 2017-06-05 09:14 | CONS ---
Date/Time of Note Date/Time of Note DATE: 06/05/17 TIME: 09:13 Consult Date/Type/Reason Admit Date/Time Apr 11, 2017 at 11:28 Initial Consult Date 04/12/17 Type of Consultation: CARDIOLOGY Ordering Provider: NINA MACIEL DO Subjective CARDIOLOGY FOLLOW UP NOTE: D/W staff and rhythm was reviewed. pt remains in NSR. no afib overnight D/W no chest pain or pressure or palpitations. pt still s/p trach on vent on tele. s/p transfusion on 05/14/17 and getting transfused again 05/26/17 pt is less lethargic today and plan for HD after HD access in place. Objective: General: s/p trach on vent HEENT: NC/AT. . oropharynx with multiple lesions. . NECK: NO JVD. no stridor. s/p trach on vent CV: RRR. systolic ejection murmur; no gallop or rubs. PULM: + mild rhonchi. no wheezes. GI: SOFT, NT, ND, no rebound or guarding s/p PEG Extremity: 2-3+ B/L LE edema. no clubbing. neuro: awake and responds appropriately Psych: calm rectal: deferred Derm: multiple echymosis Objective Vital Signs Date Time Temp Pulse Resp B/P Pulse Ox O2 Delivery O2 Flow Rate FiO2 06/05/17 07:30 97.7 84 14 100/52 97 06/05/17 05:42 30 Intake and Output 06/04/17 06/04/17 06/05/17 15:00 23:00 07:00 Intake Total 150 ml 280 ml Output Total 300 ml 400 ml Balance -150 ml -120 ml Results/Medications Result Diagram: 06/05/17 0626 06/03/17 0608 Results 24 hrs Laboratory Tests Test 06/04/17 14:13 06/04/17 18:03 06/05/17 06:22 06/05/17 06:26 Bedside Glucose 145 121 140 White Blood Count 8.9 # Red Blood Count 2.56 L Hemoglobin 7.8 L Hematocrit 24.4 L Mean Corpuscular Volume 95.3 Mean Corpuscular Hemoglobin 30.5 Mean Corpuscular Hemoglobin Concent 32.0 Red Cell Distribution Width 20.1 H Platelet Count 268 Mean Platelet Volume 10.6 H Neutrophils % 73.1 Lymphocytes % 7.5 L Monocytes % 10.0 Eosinophils % 1.2 Basophils % 0.2 Nucleated Red Blood Cells % 0.0 Neutrophils # (Manual) 6 Lymphocytes # 0.7 L Monocytes # 0.9 Eosinophils # 0.1 Basophils # 0.0 Nucleated Red Blood Cells # 0.0 Medications Current Medications Metoprolol Tartrate (Lopressor) 5 mg Q4H PRN IV HR>110 Hold SBP<110 Last administered on 04/20/17 17:36; Admin Dose 5 MG; Start 04/11/17 at 13:30 Miscellaneous Information 1 ea NOTE XX ; Start 04/11/17 at 16:30 Glucose (Glutose) 15 gm Q15M PRN PO DECREASED GLUCOSE Last administered on 05/07 03:27; Admin Dose 15 GM; Start 04/11/17 at 16:30 Glucose (Glutose) 22.5 gm Q15M PRN PO DECREASED GLUCOSE; Start 04/11/17 at 16: 30 Dextrose (D50w Syringe) 25 ml Q15M PRN IV DECREASED GLUCOSE Last administered on 04/12/17 23:56; Admin Dose 25 ML; Start 04/11/17 at 16:30 Dextrose (D50w Syringe) 50 ml Q15M PRN IV DECREASED GLUCOSE; Start 04/11/17 at 16:30 Glucagon (Glucagen) 1 mg Q15M PRN IM DECREASED GLUCOSE; Start 04/11/17 at 16:30 Glucose (Glutose) 15 gm Q15M PRN BUCCAL DECREASED GLUCOSE; Start 04/11/17 at 16 :30 Metoclopramide HCl (Reglan) 10 mg Q6 IV Last administered on 06/05/17 06:24; Admin Dose 10 MG; Start 04/12/17 at 18:00 Insulin Aspart (Novolog Insulin Pen) NOVOLOG *MILD* ALGORI... Q6H SC Last administered on 06/04/17 06:01; Admin Dose 1 UNIT; Start 04/15/17 at 00:00 IV Flush (NS 10 ml) 10 ml PRN PRN IV FLUSH LINE; Start 04/15/17 at 13:00 Amiodarone HCl (Cordarone) 200 mg BID GTB Last administered on 06/04/17 22:14 ; Admin Dose 200 MG; Start 04/16/17 at 13:00 Heparin Sodium (Porcine) (Heparin (5000 Units/0.5 ml)) 5,000 unit BID SC Last administered on 04/30/17 21:03; Admin Dose 5,000 UNIT; Start 04/18/17 at 16:22; Status Future Hold Citalopram Hydrobromide (Celexa) 20 mg DAILY NGT Last administered on 09:46; Admin Dose 20 MG; Start 04/19/17 at 09:00 Hydralazine HCl (Apresoline) 20 mg Q6H PRN IV sbp ABOVE 160 Last administered on 06/03/17 04:17; Admin Dose 20 MG; Start 04/18/17 at 18:30 Chlorhexidine Gluconate (Peridex) 15 ml BID MT Last administered on 06/04/17 22:15; Admin Dose 15 ML; Start 04/22/17 at 21:00 Vitamin A/Vitamin D (Vitamin A & D Oint) 1 applic TID TOP Last administered on 06/04/17 22:15; Admin Dose 1 APPLIC; Start 04/22/17 at 21:00 Vitamin A/Vitamin D (Vitamin A & D Oint) 1 applic TID PRN TOP DRYNESS Last administered on 04/22/17 15:29; Admin Dose 1 APPLIC; Start 04/22/17 at 15:00 Acetaminophen/ Hydrocodone Bitart ([place] (5/325)) 1 tab Q6H GTB Last administered on 06/04/17 05:42; Admin Dose 1 TAB; Start 04/22/17 at 21:30 Diltiazem HCl 5 mg 5 mg Q1H PRN IV HEART RATE GREATER THAN 120 Last administered on 04/29/17 06:17; Admin Dose 5 MG; Start 04/29/17 at 05:00 Sodium Chloride 1,000 ml @ 0 mls/hr Q0M IV Last administered on 05/01/17 03: 00; Admin Dose 1,000 MLS/HR; Start 05/01/17 at 03:00 Sodium Chloride 1,000 ml @ 0 mls/hr Q0M IV Last administered on 05/01/17 04: 00; Admin Dose 1,000 MLS/HR; Start 05/01/17 at 03:30 Diltiazem HCl (Cardizem-D5W 125 Mg/125 ml Drip) 125 ml @ 5 mls/hr TITRATE IV Last administered on 05/02/17 19:11; Admin Dose 5 MLS/HR; Start 05/02/17 at 19: 00 Metoprolol Tartrate (Lopressor) 25 mg QID GTB Last administered on 06/04/17 22 :15; Admin Dose 25 MG; Start 05/07/17 at 09:00 Vitamin B Complex/ Vitamin C (Berocca) 1 cap DAILY PO Last administered on 06/04 09:45; Admin Dose 1 CAP; Start 05/13/17 at 09:00 Aspirin (Aspirin) 81 mg DAILY NGT Last administered on 06/04/17 09:46; Admin Dose 81 MG; Start 05/19/17 at 09:00 Lansoprazole (Prevacid) 30 mg BID@06,18 GTB Last administered on 06/04/17 05: 42; Admin Dose 30 MG; Start 05/20/17 at 18:00 Multivitamins (Multivitamin) 30 ml DAILY GTB Last administered on 06/04/17 09: 47; Admin Dose 30 ML; Start 05/24/17 at 09:00 Epoetin [place] (Epogen (Esrd)) 12,000 units TuThSa@17 SC ; Start 06/05/17 at 17:00 Assessment/Plan Chief Complaint/Hosp Course 1. acute on chronic hypoxemic respiratory failure: 2. S/P NSTEMI: due to demand ischemia. 3. CHF/ fluid overload: due to diastolic heart failure 4. moderate 5. Arrhythmia and P afib, frequent PVC: currently in NSR. 6. ANEMIA: s/p multiple transfusion 7. s/p pneumonia, . 8. s/p sepsis and shock: BP is stable now. 9. Anasarca 10. s/p cardiopulm arrest due to resp failure 11. renal failure 12. coagulopathy; resolved now. Rec: cont resp care and vent support as per PULM Team. correct lytes prn. CONT betablocker as tolerated. . cont thyroid supplement . cont tele monitoring HD/ ultrafiltration as per renal. awaiting HD access. transfuse prn cont low dose ASA 81 mg only due to recurrent anemia. THANK YOU. Problems: FRANCISCO BLACKWOOD MD Jun 05, 2017 09:14
--- NOTE | 2017-06-05 10:14 | PN ---
DATE: 06/05/2017 SUBJECTIVE DATA: Patient is scheduled for PermCath placement. Scheduled for possible dialysis. No other events noted. OBJECTIVE DATA: VITAL SIGNS: Blood pressure is 152, respirations 14, pulse 84, temperature 97.7. HEENT: Head is normocephalic. NECK: Supple. HEART: Regular rate. LUNGS: Show diminished breath sounds at the base. ABDOMEN: Soft, nontender to palpation. No rebound or guarding. EXTREMITIES: Negative for clubbing, cyanosis. Positive edema. DERMATOLOGIC: Clean. No rashes. MUSCULOSKELETAL: No joint effusion. NEUROLOGIC: No change in exam. MEDICATIONS: Reviewed. LABORATORY AND DIAGNOSTIC DATA: White count 8.9, hemoglobin 7.8, crit 24.4, and platelet count is 268. ASSESSMENT AND PLAN: 1. Ventilatory-dependent respiratory failure. Vent settings reviewed. ABGs reviewed. Continue to monitor. Follow up with Pulmonary. 2. History of thyroid cancer with tracheomalacia. The patient has been seen by ENT. Continue to monitor. 3. Oliguric acute kidney injury on top of chronic kidney disease. Patient has now advanced to possible end-stage renal disease. Patient is pending PermCath placement. Will have hemodialysis once catheter is placed. 4. Volume overload secondary to congestive heart failure and renal failure. Continue ultrafiltration dialysis once catheter is placed. 5. Sepsis, status post shock. Continue current antibiotic course. 6. Adrenal insufficiency. Continue current steroid regimen. 7. Acute encephalopathy. Etiology toxic metabolic. Continue to monitor. 8. Hypothyroidism. Continue Synthroid. 9. Hyponatremia, secondary to end-stage renal disease. The patient will be dialyzed on a 140 sodium bath. 10. Anemia. Monitor H and H levels. Continue Epogen. Transfuse as needed. 11. Dysphagia, status post percutaneous endoscopic gastrostomy. Continue tube feeding. 12. Status post gastrointestinal bleed. 13. Gastrointestinal and deep venous thrombosis prophylaxis. Continue proton pump inhibitor and sequential leg squeezes. Dictated By: Abebe Valderrama DO /marquita/laith /Document#: [id number]
[2017-06-05 10:54] LABS: CALCIUM 8.5 mg/dl (8.4-10.2); CREATININE 2.97 mg/dl (0.44-1.00); PHOSPHORUS 4.7 mg/dl (2.5-4.9); POTASSIUM 4.8 mmol/L (3.5-5.1)
--- NOTE | 2017-06-05 12:02 | CONS ---
Date/Time of Note Date/Time of Note DATE: 06/05/17 TIME: 11:59 Assessment/Plan Assessment/Plan Additional Assessment/Plan Ventilator settings; SIMV of 8, pressure support 12, PEEP of 5, 30% FiO2, tidal volume 450. Assessment and recommendations; 1. Patient with history of chronic respiratory failure admitted for sepsis off antibiotics now. 2. Prior history of glossal cancer. 3. Status post redo tracheostomy 2. 4. Renal failure, on hemodialysis. 5. Anemia. 6. Severe generalized deconditioning. 7. Significant anasarca. Continue current treatment. Put the patient on CPAP trial as tolerated with pressure support of 12. I did have a very detailed discussion with the patient' s today in the hospital and answered all his questions. Consultation Date/Type/Reason Admit Date/Time Apr 11, 2017 at 11:28 Initial Consult Date 05/01/17 Type of Consultation: Pulmonary Referring Provider: NINA MACIEL DO 24 HR Interval Summary Free Text/Dictation Patient condition stable. Remains awake and alert. Has remained hemodynamically stable. General exam; elderly woman, on ventilator via tracheostomy, currently in no distress. Exam/Review of Systems Vital Signs Vitals Vital Signs Date Time Temp Pulse Resp B/P Pulse Ox O2 Delivery O2 Flow Rate FiO2 06/05/17 10:05 87 17 98 30 06/05/17 07:30 97.7 100/52 Intake and Output 06/04/17 06/04/17 06/05/17 15:00 23:00 07:00 Intake Total 150 ml 280 ml Output Total 300 ml 400 ml Balance -150 ml -120 ml Exam HEENT exam; supple neck, positive JVD. No lymphadenopathy. Midline trachea. No thyromegaly. Tracheostomy in place. Patient has fair dentition. Chest exam; clear to auscultation. S1-S2 audible, no murmurs. Regular rhythm. Abdomen exam; soft, G-tube in place. No organomegaly. Bowel sounds audible. Extremity exam; 2+ pitting edema in lower extremities bilaterally, 1+ pitting edema in upper extremities bilaterally. [employer]OR [employer] SCI[employer]ES exam; patient is awake follows simple commands moves all 4 extremities. Patient however exhibiting profound muscular weakness overall. Results Result Diagram: 06/05/17 0626 06/05/17 06 Results 24 hrs Laboratory Tests Test 06/04/17 14:13 06/04/17 18:03 06/05/17 06:22 06/05/17 06:26 Bedside Glucose 145 121 140 White Blood Count 8.9 # Red Blood Count 2.56 L Hemoglobin 7.8 L Hematocrit 24.4 L Mean Corpuscular Volume 95.3 Mean Corpuscular Hemoglobin 30.5 Mean Corpuscular Hemoglobin Concent 32.0 Red Cell Distribution Width 20.1 H Platelet Count 268 Mean Platelet Volume 10.6 H Neutrophils % 73.1 Lymphocytes % 7.5 L Monocytes % 10.0 Eosinophils % 1.2 Basophils % 0.2 Nucleated Red Blood Cells % 0.0 Neutrophils # (Manual) 6 Lymphocytes # 0.7 L Monocytes # 0.9 Eosinophils # 0.1 Basophils # 0.0 Nucleated Red Blood Cells # 0.0 Sodium Level 126 L Potassium Level 4.8 Chloride Level 86 L Carbon Dioxide Level 28 Anion Gap 17 H Blood Urea Nitrogen 120 H Creatinine 2.97 H Glucose Level 110 Calcium Level 8.5 Phosphorus Level 4.7 Magnesium Level 3.0 H Medications Medications Current Medications Metoprolol Tartrate (Lopressor) 5 mg Q4H PRN IV HR>110 Hold SBP<110 Last administered on 04/20/17 17:36; Admin Dose 5 MG; Start 04/11/17 at 13:30 Miscellaneous Information 1 ea NOTE XX ; Start 04/11/17 at 16:30 Glucose (Glutose) 15 gm Q15M PRN PO DECREASED GLUCOSE Last administered on 05/07 03:27; Admin Dose 15 GM; Start 04/11/17 at 16:30 Glucose (Glutose) 22.5 gm Q15M PRN PO DECREASED GLUCOSE; Start 04/11/17 at 16: 30 Dextrose (D50w Syringe) 25 ml Q15M PRN IV DECREASED GLUCOSE Last administered on 04/12/17 23:56; Admin Dose 25 ML; Start 04/11/17 at 16:30 Dextrose (D50w Syringe) 50 ml Q15M PRN IV DECREASED GLUCOSE; Start 04/11/17 at 16:30 Glucagon (Glucagen) 1 mg Q15M PRN IM DECREASED GLUCOSE; Start 04/11/17 at 16:30 Glucose (Glutose) 15 gm Q15M PRN BUCCAL DECREASED GLUCOSE; Start 04/11/17 at 16 :30 Metoclopramide HCl (Reglan) 10 mg Q6 IV Last administered on 06/05/17 06:24; Admin Dose 10 MG; Start 04/12/17 at 18:00 Insulin Aspart (Novolog Insulin Pen) NOVOLOG *MILD* ALGORI... Q6H SC Last administered on 06/04/17 06:01; Admin Dose 1 UNIT; Start 04/15/17 at 00:00 IV Flush (NS 10 ml) 10 ml PRN PRN IV FLUSH LINE; Start 04/15/17 at 13:00 Amiodarone HCl (Cordarone) 200 mg BID GTB Last administered on 06/04/17 22:14 ; Admin Dose 200 MG; Start 04/16/17 at 13:00 Heparin Sodium (Porcine) (Heparin (5000 Units/0.5 ml)) 5,000 unit BID SC Last administered on 04/30/17 21:03; Admin Dose 5,000 UNIT; Start 04/18/17 at 16:22; Status Future Hold Citalopram Hydrobromide (Celexa) 20 mg DAILY NGT Last administered on 09:46; Admin Dose 20 MG; Start 04/19/17 at 09:00 Hydralazine HCl (Apresoline) 20 mg Q6H PRN IV sbp ABOVE 160 Last administered on 06/03/17 04:17; Admin Dose 20 MG; Start 04/18/17 at 18:30 Chlorhexidine Gluconate (Peridex) 15 ml BID MT Last administered on 06/05/17 09:13; Admin Dose 15 ML; Start 04/22/17 at 21:00 Vitamin A/Vitamin D (Vitamin A & D Oint) 1 applic TID TOP Last administered on 06/05/17 09:13; Admin Dose 1 APPLIC; Start 04/22/17 at 21:00 Vitamin A/Vitamin D (Vitamin A & D Oint) 1 applic TID PRN TOP DRYNESS Last administered on 04/22/17 15:29; Admin Dose 1 APPLIC; Start 04/22/17 at 15:00 Acetaminophen/ Hydrocodone Bitart ([place] (5/325)) 1 tab Q6H GTB Last administered on 06/04/17 05:42; Admin Dose 1 TAB; Start 04/22/17 at 21:30 Diltiazem HCl 5 mg 5 mg Q1H PRN IV HEART RATE GREATER THAN 120 Last administered on 04/29/17 06:17; Admin Dose 5 MG; Start 04/29/17 at 05:00 Sodium Chloride 1,000 ml @ 0 mls/hr Q0M IV Last administered on 05/01/17 03: 00; Admin Dose 1,000 MLS/HR; Start 05/01/17 at 03:00 Sodium Chloride 1,000 ml @ 0 mls/hr Q0M IV Last administered on 05/01/17 04: 00; Admin Dose 1,000 MLS/HR; Start 05/01/17 at 03:30 Diltiazem HCl (Cardizem-D5W 125 Mg/125 ml Drip) 125 ml @ 5 mls/hr TITRATE IV Last administered on 05/02/17 19:11; Admin Dose 5 MLS/HR; Start 05/02/17 at 19: 00 Metoprolol Tartrate (Lopressor) 25 mg QID GTB Last administered on 06/04/17 22 :15; Admin Dose 25 MG; Start 05/07/17 at 09:00 Vitamin B Complex/ Vitamin C (Berocca) 1 cap DAILY PO Last administered on 06/04 09:45; Admin Dose 1 CAP; Start 05/13/17 at 09:00 Aspirin (Aspirin) 81 mg DAILY NGT Last administered on 06/04/17 09:46; Admin Dose 81 MG; Start 05/19/17 at 09:00 Lansoprazole (Prevacid) 30 mg BID@06,18 GTB Last administered on 06/04/17 05: 42; Admin Dose 30 MG; Start 05/20/17 at 18:00 Multivitamins (Multivitamin) 30 ml DAILY GTB Last administered on 06/04/17 09: 47; Admin Dose 30 ML; Start 05/24/17 at 09:00 Epoetin Perry (Epogen (Esrd)) 12,000 units TuThSa@17 SC ; Start 06/05/17 at 17:00 EMILIANO HICKS Jun 05, 2017 12:02
[2017-06-05] MEDS ORDERED: MIDAZOLAM 1 MG/ML 2 ML INJ ONE (12:07)
[2017-06-05] MEDS ORDERED: FENTAnyl 50 MCG/ML VIAL ONE (12:07)
--- NOTE | 2017-06-05 12:36 | OPR ---
Date/Time of Note Date/Time of Note DATE: 06/05/17 TIME: 12:34 Operative Report Procedure Date: Jun 05, 2017 Preoperative Diagnosis Renal failure Postoperative Diagnosis Same Operation Performed Right internal jugular vein tunneled hemodialysis catheter placement Ultrasound guidance into the central vein Surgeon: FANNY BLACK MD Anesthesia Type: MAC Estimated Blood Loss: minimal Transfusion Required: no Specimen: none Grafts/Implants: none Complications: no Pt Condition Post Procedure: critical Indications Renal failure Operative\Procedure Findings Dictated Procedure Description Patient was placed supine position prepped and draped in usual sterile fashion under ultrasonic guidance access was gained the right internal jugular vein guidewire was advanced without any difficulty subcutaneous tissues dilated 19 cm tunneled hematemesis catheter was brought into subcutaneous tunnel advanced into the right internal jugular vein superior vena cava all under arthroscopic guidance the tip was placed at the junction of the superior vena cava and right atrium both ports of the catheter were aspirated and injected using heparinized saline solution the catheter was secured to skin using 2-0 nylon sutures the next site and exit site was closed using a single 3-0 Vicryl suture in interrupted fashion patient tolerated procedure well end of the FANNY BLACK MD Jun 05, 2017 12:36
[2017-06-05] MEDS ORDERED: MANNITOL 25% 50 ML IV PRN (14:00)
[2017-06-05] MEDS: MULTIVITAMINS 30 ML CUP GTB SCH (14:16)
[2017-06-05] MEDS ORDERED: LIDOCAINE 1% (MDV) 20 ML INJ ONE (16:15)
[2017-06-05] MEDS ORDERED: HEPARIN 1000 UNITS/ML 10 ML INJ ONE (16:15)
[2017-06-05] MEDS: CITALOPRAM 20 MG TAB NGT SCH (17:27)
[2017-06-05] MEDS: AMIODARONE 200 MG TAB GTB SCH ×2 (17:27→21:45)
[2017-06-05] MEDS: VITAMIN B COMPLEX/VIT C CAP PO SCH (17:27)
[2017-06-05] MEDS: EPOETIN 4000 UNITS/1 ML INJ (ESRD) SC SCH (17:29)
[2017-06-05] MEDS: ASPIRIN 81 MG TAB NGT SCH (17:29)
--- NOTE | 2017-06-05 23:29 | PN ---
Date/Time of Note Date/Time of Note DATE: 06/05/17 TIME: 23:28 Assessment/Plan Lines/Catheters IV Catheter Type (from [facility]): Permacath Mims in Place (from [facility]): Yes Assessment/Plan Chief Complaint/Hosp Course 1. Cholelithiasis: Tolerating tube feeds; no abdominal pain/discomfort/bloating ; +bowel function -No surgical intervention required at this time 2. Pneumonia: Recurrent +sputum cultures; appears comfortable, no fevers, s/p abx; CXR: with nodule-possible aspirated tooth; ct chest: no foreign body -pulmonary toilet -wean as tolerated 3. Vent dependent respiratory failure: 2/2 aspiration PNA+ CHF;reintubated and extubated, coded 04/21 and 05/01; comfortable on vent -as above 4. KEYONNA: likely 2/2 septic shock; with + urine output; will need half-way HD, pending cath placement today -judicious fluid management -avoid nephrotoxic agents 5. Uncontrolled Afib: s/p amiodarone drip, on oral amiodarone; episodes of Afib Now SR -medical optimization 6. Leukocytosis with lactic acidosis: 2/2 pneumonia +/- steroids vs.fungemia vs other (urine, repeat blood cultures negative); labile -per ID 7. Macrocytic anemia: chronic vs. dilutional vs. acute bleed vs. b12/folate deficiency; hh stable -monitor -Transfuse as needed 8. Electrolyte imbalance: (hyponatremia, hypokalemia); improved -electrolyte optimization 9. CHF: BNP elevated -judicious fluid management -medical optimization 10. Adrenal Insufficiency -solucortef 11. Oral lesions: improving 12. Hypothyroidism; tsh elevated -on synthroid 13. Hypocalcemia with hypoalbuminemia -optimize nutrition 14. Bilateral upper and lower extremity edema: hx(+) Thrombus in upper arm; lower leg pain, doppler (-) -elevate extremities -supportive 15. Hypoalbuminemia: 2/2 malnutrition +/- inflammation; decreased; tolerating tf ; -nutrition optimization -as above Patient seen and examined in collaboration with Dr. Justus Antonio. Thank you Problems: Subjective 24 Hr Interval Summary Awake and alert. Pending dialysis cath placement. Comfortable on vent. No sob, cough, n/v/d/dysuria. Tolerating tf with +bowel function. No c/o abdominal pain. Exam/Review of Systems Vital Signs Vitals Vital Signs Date Time Temp Pulse Resp B/P Pulse Ox O2 Delivery O2 Flow Rate FiO2 06/06/17 21:18 97.4 69 16 160/70 99 06/06/17 16:57 30 Intake and Output 06/05/17 06/05/17 06/06/17 15:00 23:00 07:00 Intake Total 860 ml 390 ml Output Total 4900 ml 400 ml Balance -4040 ml -10 ml Exam Free Text/Dictation Constitutional: fully awake, alert pleasant Head: atraumatic, normocephalic Eyes: PERRL, nl lids, nl sclera; right eye redness much improved ENMT: No mucosa pink and moist (pink and moist with healing perioral lesions), tooth missing, Neck: non-tender, supple, tracheostomy Respiratory: diminished, comfortable on vent, min sputum Cardiovascular: nl pulses, regular rate and rhythm, Gastrointestinal: non distended, GT tubes site no erythema, no drainage, non tenderness, bowel sounds x 4 quads, soft; tf ongoing Genitourinary - Female: nl external genitalia; mims with yellow output with sediments Musculoskeletal: nl extremities to inspection Extremities: normal pulses, bilateral upper/lower extremity edema 1+; improved extremity edema Neurological: responsive Skin: nl turgor, No rash or lesions Lymph: nl lymph node Results Result Diagram: 06/06/1781206/06/17812 ADDISON FREGOSO NP Jun 05, 2017 23:29
[2017-06-06] VITALS (30 sets, daily range): BP systolic 74–160; BP diastolic 44–70; PULSE 67–90; RESP 10–20
[2017-06-06] MEDS: METOCLOPRAMIDE 10 MG INJ IV SCH ×4 (01:04→18:29)
[2017-06-06] MEDS: LEVALBUTEROL (HFA) 15 GM INHALER INH SCH ×5 (01:40→20:32)
[2017-06-06] MEDS: HYDROCODONE/APAP (5/325) TAB GTB SCH ×4 (03:59→21:09)
[2017-06-06] MEDS: LANSOPRAZOLE 30 MG CAP GTB SCH ×2 (05:49→18:29)
[2017-06-06] MEDS: INSULIN ASPART [NOVOLOG] 3 ML PEN SC SCH ×4 (05:54→18:00)
[2017-06-06] MEDS: LEVOTHYROXINE 100 MCG TAB GTB SCH (06:16)
[2017-06-06 08:50] LABS: ABNORMAL IP MESSAGE 1; HEMATOCRIT 21.5 % (37.0-47.0); MEAN CORPUSCULAR HEMOGLOBIN 31.3 pg (29.0-33.0); MEAN CORPUSCULAR HGB CONC 31.6 g/dl (32.0-37.0); MEAN CORPUSCULAR VOLUME 99.1 fl (82.0-101.0); MEAN PLATELET VOLUME 10.7 fl (7.4-10.4); PLATELET COUNT 219 10^3/UL (140-415); RED BLOOD COUNT 2.17 10^6/ul (4.20-5.40); RED CELL DISTRIBUTION WIDTH 20.8 % (11.5-14.5); WHITE BLOOD COUNT 8.3 10^3/ul (4.8-10.8)
[2017-06-06] MEDS: MULTIVITAMINS 30 ML CUP GTB SCH (08:52)
[2017-06-06] MEDS: CHLORHEXIDINE GLUCONATE 15 ML UD CUP MT SCH ×2 (08:52→21:07)
[2017-06-06] MEDS: VITAMIN A & D 5 GM OINT PACKET TOP SCH ×3 (08:52→21:08)
[2017-06-06] MEDS: VITAMIN B COMPLEX/VIT C CAP PO SCH (08:52)
[2017-06-06] MEDS: ASPIRIN 81 MG TAB NGT SCH (08:53)
[2017-06-06] MEDS: CITALOPRAM 20 MG TAB NGT SCH (08:53)
[2017-06-06] MEDS: METOPROLOL 25 MG TAB GTB SCH ×4 (08:53→21:08)
[2017-06-06 09:00] LABS: CALCIUM 8.4 mg/dl (8.4-10.2); CREATININE 2.03 mg/dl (0.44-1.00); MAGNESIUM 2.8 mg/dl (1.7-2.5); POTASSIUM 4.3 mmol/L (3.5-5.1)
[2017-06-06 09:10] LABS: HEMOGLOBIN 6.8 g/dl (12.0-16.0)
[2017-06-06 09:11] LABS: POSITIVE DIFF @See below
--- NOTE | 2017-06-06 09:12 | PN ---
DATE: 06/06/2017 SUBJECTIVE DATA: The patient had a PermCath placed yesterday, had hemodialysis, tolerated it well. The patient is scheduled for dialysis today. Please note, there was some bleeding around PermCath site, which has improved. No other events noted. OBJECTIVE DATA: VITAL SIGNS: Blood pressure 106/59, respirations 14, pulse 96, temperature 97.5. HEENT: Head is normocephalic. NECK: Shows trach. HEART: Regular rate. LUNGS: Show diminished breath sounds at the base. ABDOMEN: Soft, nontender to palpation. No rebound or guarding. EXTREMITIES: Negative for clubbing, cyanosis. Positive edema. DERMATOLOGIC: Clean. No rashes. MUSCULOSKELETAL: No joint effusion. NEUROLOGIC: No change in exam. MEDICATIONS: Reviewed. Laboratory data for this morning is currently pending. ASSESSMENT AND PLAN: 1. Ventilatory-dependent respiratory failure. Patient's vent settings and ABGs reviewed. Continue to monitor. 2. History of thyroid cancer with tracheomalacia. Patient is being evaluated by ENT. Continue to observe. 3. Acute kidney injury on top chronic kidney disease, now likely progressed to end-stage renal disease. Patient is currently dialysis dependent. Plan for dialysis today. 4. Volume overload. Continue ultrafiltration dialysis. 5. Anemia. Etiology is multifactorial secondary to chronic kidney disease, possible recent bleed from PermCath site. We will repeat CBC. continue Epogen. Will get a blood transfusion if needed. 6. Sepsis, status post shock. Patient is completing antibiotic course. 7. Adrenal insufficiency. Continue current steroid regimen. 8. Acute encephalopathy. Etiology is toxic metabolic. 9. Hypothyroidism. Continue Synthroid. 10. Hyponatremia. Continue dialysis on a 140 sodium bath. 11. Dysphagia, status post percutaneous endoscopic gastrostomy. Continue tube feeding. 12. Status post gastrointestinal bleed. 13. Gastrointestinal and deep venous thrombosis prophylaxis. Continue proton pump inhibitor and sequential leg squeezes. Dictated By: Abebe Valderrama DO /marquita/laith /Document#: [id number]
--- NOTE | 2017-06-06 09:48 | CONS ---
Date/Time of Note Date/Time of Note DATE: 06/06/17 TIME: 09:45 Assessment/Plan Assessment/Plan Additional Assessment/Plan Ventilator setting; SIMV of 8, tidal volume 500, pressure support 10, PEEP of 5 , 30% FiO2. Assessment and recommendations; 1. Patient admitted with sepsis status post antibiotic treatment. 2. Multiple other comorbidities including chronic respiratory failure, hypo- thyroidism, hypertension, anemia, redo tracheostomy 2, history of glossal cancer in the past. Continue current supportive care. Continue CPAP trials as tolerated. Transfuse packed RBCs. Consultation Date/Type/Reason Admit Date/Time Apr 11, 2017 at 11:28 Initial Consult Date 05/01/17 Type of Consultation: Pulmonary Referring Provider: NINA MACIEL DO 24 HR Interval Summary Free Text/Dictation Patient condition remains stable. Patient has been unable to tolerate CPAP mode continuously because of hypoventilation. Patient however has remained hemodynamically stable. Remains awake and alert. General exam; elderly woman, on ventilator via tracheostomy, awake, currently in no distress. Exam/Review of Systems Vital Signs Vitals Vital Signs Date Time Temp Pulse Resp B/P Pulse Ox O2 Delivery O2 Flow Rate FiO2 06/06/17 09:20 90 06/06/17 07:47 97.5 14 106/59 99 06/06/17 05:38 30 Intake and Output 06/05/17 06/05/17 06/06/17 15:00 23:00 07:00 Intake Total 860 ml 390 ml Output Total 4900 ml 400 ml Balance -4040 ml -10 ml Exam HEENT exam; supple neck, no JVD. No lymphadenopathy. Midline trachea. No thyromegaly. Tracheostomy placed. Patient has fair dentition. Chest exam; clear to auscultation. S1-S2 audible, no murmurs. Abdomen exam; soft, no organomegaly. Bowel sounds audible. G-tube in place. Extremity exam; 2+ pitting edema in lower extremities bilaterally. 1+ pitting edema in upper extremities bilaterally. No clubbing. [employer] exam; no focal motor deficit, however patient still has profound generalized muscular weakness. Results Result Diagram: 06/06/17 0813 06/06/17 0813 Results 24 hrs Laboratory Tests Test 06/05/17 14:15 06/05/17 17:25 06/06/17 01:08 06/06/17 05:54 Bedside Glucose 108 156 137 129 Test 06/06/17 08:13 White Blood Count 8.3 Red Blood Count 2.17 L Hemoglobin 6.8 *L Hematocrit 21.5 L Mean Corpuscular Volume 99.1 Mean Corpuscular Hemoglobin 31.3 Mean Corpuscular Hemoglobin Concent 31.6 L Red Cell Distribution Width 20.8 H Platelet Count 219 Mean Platelet Volume 10.7 H Neutrophils % Lymphocytes % Monocytes % Eosinophils % Basophils % Nucleated Red Blood Cells % 0.0 Neutrophils # (Manual) 5.6 Lymphocytes # Monocytes # Eosinophils # Basophils # Nucleated Red Blood Cells # Sodium Level 131 L Potassium Level 4.3 Chloride Level 95 L Carbon Dioxide Level 29 Anion Gap 11 Blood Urea Nitrogen 82 #H Creatinine 2.03 H Glucose Level 126 Calcium Level 8.4 Phosphorus Level 4.0 Magnesium Level 2.8 H Medications Medications Current Medications Metoprolol Tartrate (Lopressor) 5 mg Q4H PRN IV HR>110 Hold SBP<110 Last administered on 04/20/17 17:36; Admin Dose 5 MG; Start 04/11/17 at 13:30 Miscellaneous Information 1 ea NOTE XX ; Start 04/11/17 at 16:30 Glucose (Glutose) 15 gm Q15M PRN PO DECREASED GLUCOSE Last administered on 05/07 03:27; Admin Dose 15 GM; Start 04/11/17 at 16:30 Glucose (Glutose) 22.5 gm Q15M PRN PO DECREASED GLUCOSE; Start 04/11/17 at 16: 30 Dextrose (D50w Syringe) 25 ml Q15M PRN IV DECREASED GLUCOSE Last administered on 04/12/17 23:56; Admin Dose 25 ML; Start 04/11/17 at 16:30 Dextrose (D50w Syringe) 50 ml Q15M PRN IV DECREASED GLUCOSE; Start 04/11/17 at 16:30 Glucagon (Glucagen) 1 mg Q15M PRN IM DECREASED GLUCOSE; Start 04/11/17 at 16:30 Glucose (Glutose) 15 gm Q15M PRN BUCCAL DECREASED GLUCOSE; Start 04/11/17 at 16 :30 Metoclopramide HCl (Reglan) 10 mg Q6 IV Last administered on 06/06/17 05:49; Admin Dose 10 MG; Start 04/12/17 at 18:00 Insulin Aspart (Novolog Insulin Pen) NOVOLOG *MILD* ALGORI... Q6H SC Last administered on 06/05/17 17:49; Admin Dose 1 UNIT; Start 04/15/17 at 00:00 IV Flush (NS 10 ml) 10 ml PRN PRN IV FLUSH LINE; Start 04/15/17 at 13:00 Amiodarone HCl (Cordarone) 200 mg BID GTB Last administered on 06/05/17 21:45 ; Admin Dose 200 MG; Start 04/16/17 at 13:00 Heparin Sodium (Porcine) (Heparin (5000 Units/0.5 ml)) 5,000 unit BID SC Last administered on 04/30/17 21:03; Admin Dose 5,000 UNIT; Start 04/18/17 at 16:22; Status Future Hold Citalopram Hydrobromide (Celexa) 20 mg DAILY NGT Last administered on 08:53; Admin Dose 20 MG; Start 04/19/17 at 09:00 Hydralazine HCl (Apresoline) 20 mg Q6H PRN IV sbp ABOVE 160 Last administered on 06/03/17 04:17; Admin Dose 20 MG; Start 04/18/17 at 18:30 Chlorhexidine Gluconate (Peridex) 15 ml BID MT Last administered on 06/06/17 08:52; Admin Dose 15 ML; Start 04/22/17 at 21:00 Vitamin A/Vitamin D (Vitamin A & D Oint) 1 applic TID TOP Last administered on 06/06/17 08:52; Admin Dose 1 APPLIC; Start 04/22/17 at 21:00 Vitamin A/Vitamin D (Vitamin A & D Oint) 1 applic TID PRN TOP DRYNESS Last administered on 04/22/17 15:29; Admin Dose 1 APPLIC; Start 04/22/17 at 15:00 Acetaminophen/ Hydrocodone Bitart ([place] (5/325)) 1 tab Q6H GTB Last administered on 06/06/17 08:53; Admin Dose 1 TAB; Start 04/22/17 at 21:30 Diltiazem HCl 5 mg 5 mg Q1H PRN IV HEART RATE GREATER THAN 120 Last administered on 04/29/17 06:17; Admin Dose 5 MG; Start 04/29/17 at 05:00 Sodium Chloride 1,000 ml @ 0 mls/hr Q0M IV Last administered on 05/01/17 03: 00; Admin Dose 1,000 MLS/HR; Start 05/01/17 at 03:00 Sodium Chloride 1,000 ml @ 0 mls/hr Q0M IV Last administered on 05/01/17 04: 00; Admin Dose 1,000 MLS/HR; Start 05/01/17 at 03:30 Diltiazem HCl (Cardizem-D5W 125 Mg/125 ml Drip) 125 ml @ 5 mls/hr TITRATE IV Last administered on 05/02/17 19:11; Admin Dose 5 MLS/HR; Start 05/02/17 at 19: 00 Metoprolol Tartrate (Lopressor) 25 mg QID GTB Last administered on 06/05/17 21 :46; Admin Dose 25 MG; Start 05/07/17 at 09:00 Vitamin B Complex/ Vitamin C (Berocca) 1 cap DAILY PO Last administered on 06/06 08:52; Admin Dose 1 CAP; Start 05/13/17 at 09:00 Aspirin (Aspirin) 81 mg DAILY NGT Last administered on 06/06/17 08:53; Admin Dose 81 MG; Start 05/19/17 at 09:00 Lansoprazole (Prevacid) 30 mg BID@06,18 GTB Last administered on 06/06/17 05: 49; Admin Dose 30 MG; Start 05/20/17 at 18:00 Multivitamins (Multivitamin) 30 ml DAILY GTB Last administered on 06/06/17 08: 52; Admin Dose 30 ML; Start 05/24/17 at 09:00 Epoetin Perry (Epogen (Esrd)) 12,000 units TuThSa@17 SC Last administered on 17:29; Admin Dose 12,000 UNITS; Start 06/05/17 at 17:00 EMILIANO HICKS Jun 06, 2017 09:48
[2017-06-06 09:51] LABS: ANISOCYTOSIS 1+ (0-0); EOSINOPHILS % (M) 1 % (0-7); MICROCYTOSIS 1+ (0-0); MONOCYTES % (M) 14 % (0-11); MYELOCYTES % (M) 4 % (0-0); PLATELET ESTIMATE NORMAL; POLYCHROMASIA 3+ (0-0); PROMYELOCYTES #M 0 10^3/ul (0-0); PROMYELOCYTES % (M) 1 % (0-0)
[2017-06-06] MEDS: AMIODARONE 200 MG TAB GTB SCH ×2 (12:17→21:08)
--- NOTE | 2017-06-06 14:45 | CONS ---
Date/Time of Note Date/Time of Note DATE: 06/06/17 TIME: 14:43 Consult Date/Type/Reason Admit Date/Time Apr 11, 2017 at 11:28 Initial Consult Date 04/12/17 Type of Consultation: CARDIOLOGY Ordering Provider: NINA MACIEL DO Subjective CARDIOLOGY FOLLOW UP NOTE: D/W staff and rhythm was reviewed. pt remains in NSR. no afib overnight D/W no chest pain or pressure or palpitations. pt still s/p trach on vent on tele. s/p transfusion on 05/14/17 and getting transfused again 05/26/17 getting transfusion 06/06/17 pt is less lethargic today s/p HD. Objective: General: s/p trach on vent HEENT: NC/AT. . oropharynx with multiple lesions. . NECK: NO JVD. no stridor. s/p trach on vent CV: RRR. systolic ejection murmur; no gallop or rubs. PULM: + mild rhonchi. no wheezes. GI: SOFT, NT, ND, no rebound or guarding s/p PEG Extremity: 2-3+ B/L LE edema. no clubbing. neuro: awake and responds appropriately Psych: calm rectal: deferred Derm: multiple echymosis chest: s/p right chest HD access in place. Objective Vital Signs Date Time Temp Pulse Resp B/P Pulse Ox O2 Delivery O2 Flow Rate FiO2 06/06/17 12:03 73 06/06/17 11:20 30 06/06/17 11:14 97.5 15 112/58 100 Intake and Output 06/05/17 06/05/17 06/06/17 15:00 23:00 07:00 Intake Total 860 ml 390 ml Output Total 4900 ml 400 ml Balance -4040 ml -10 ml Results/Medications Result Diagram: 06/06/17 0813 06/06/17 0813 Results 24 hrs Laboratory Tests Test 06/05/17 17:25 06/06/17 01:08 06/06/17 05:54 06/06/17 08:13 Bedside Glucose 156 137 129 White Blood Count 8.3 Red Blood Count 2.17 L Hemoglobin 6.8 *L Hematocrit 21.5 L Mean Corpuscular Volume 99.1 Mean Corpuscular Hemoglobin 31.3 Mean Corpuscular Hemoglobin Concent 31.6 L Red Cell Distribution Width 20.8 H Platelet Count 219 Mean Platelet Volume 10.7 H Neutrophils % Segmented Neutrophils % (Manual) 67 Band Neutrophils % (Manual) 8 H Lymphocytes % Lymphocytes % (Manual) 5 L Monocytes % Monocytes % (Manual) 14 H Eosinophils % Eosinophils % (Manual) 1 Basophils % Myelocytes % (Manual) 4 H Promyelocytes % (Manual) 1 H Nucleated Red Blood Cells % 0.0 Neutrophils # (Manual) 5.6 Band Neutrophils # 0.6 Absolute Lymphocytes (Manual) 0.4 L Lymphocytes # Monocytes # Absolute Monocytes (Manual) 1.1 H Eosinophils # Basophils # Myelocytes # 0.3 H Promyelocytes # 0 Nucleated Red Blood Cells # Platelet Estimate NORMAL Polychromasia 3+ Anisocytosis 1+ Microcytosis 1+ Sodium Level 131 L Potassium Level 4.3 Chloride Level 95 L Carbon Dioxide Level 29 Anion Gap 11 Blood Urea Nitrogen 82 #H Creatinine 2.03 H Glucose Level 126 Calcium Level 8.4 Phosphorus Level 4.0 Magnesium Level 2.8 H Test 06/06/17 12:15 Bedside Glucose 157 Medications Current Medications Metoprolol Tartrate (Lopressor) 5 mg Q4H PRN IV HR>110 Hold SBP<110 Last administered on 04/20/17 17:36; Admin Dose 5 MG; Start 04/11/17 at 13:30 Miscellaneous Information 1 ea NOTE XX ; Start 04/11/17 at 16:30 Glucose (Glutose) 15 gm Q15M PRN PO DECREASED GLUCOSE Last administered on 05/07 03:27; Admin Dose 15 GM; Start 04/11/17 at 16:30 Glucose (Glutose) 22.5 gm Q15M PRN PO DECREASED GLUCOSE; Start 04/11/17 at 16: 30 Dextrose (D50w Syringe) 25 ml Q15M PRN IV DECREASED GLUCOSE Last administered on 04/12/17 23:56; Admin Dose 25 ML; Start 04/11/17 at 16:30 Dextrose (D50w Syringe) 50 ml Q15M PRN IV DECREASED GLUCOSE; Start 04/11/17 at 16:30 Glucagon (Glucagen) 1 mg Q15M PRN IM DECREASED GLUCOSE; Start 04/11/17 at 16:30 Glucose (Glutose) 15 gm Q15M PRN BUCCAL DECREASED GLUCOSE; Start 04/11/17 at 16 :30 Metoclopramide HCl (Reglan) 10 mg Q6 IV Last administered on 06/06/17 12:16; Admin Dose 10 MG; Start 04/12/17 at 18:00 Insulin Aspart (Novolog Insulin Pen) NOVOLOG *MILD* ALGORI... Q6H SC Last administered on 06/06/17 12:34; Admin Dose 1 UNIT; Start 04/15/17 at 00:00 IV Flush (NS 10 ml) 10 ml PRN PRN IV FLUSH LINE; Start 04/15/17 at 13:00 Amiodarone HCl (Cordarone) 200 mg BID GTB Last administered on 06/06/17 12:17 ; Admin Dose 200 MG; Start 04/16/17 at 13:00 Heparin Sodium (Porcine) (Heparin (5000 Units/0.5 ml)) 5,000 unit BID SC Last administered on 04/30/17 21:03; Admin Dose 5,000 UNIT; Start 04/18/17 at 16:22; Status Future Hold Citalopram Hydrobromide (Celexa) 20 mg DAILY NGT Last administered on 08:53; Admin Dose 20 MG; Start 04/19/17 at 09:00 Hydralazine HCl (Apresoline) 20 mg Q6H PRN IV sbp ABOVE 160 Last administered on 06/03/17 04:17; Admin Dose 20 MG; Start 04/18/17 at 18:30 Chlorhexidine Gluconate (Peridex) 15 ml BID MT Last administered on 06/06/17 08:52; Admin Dose 15 ML; Start 04/22/17 at 21:00 Vitamin A/Vitamin D (Vitamin A & D Oint) 1 applic TID TOP Last administered on 06/06/17 12:17; Admin Dose 1 APPLIC; Start 04/22/17 at 21:00 Vitamin A/Vitamin D (Vitamin A & D Oint) 1 applic TID PRN TOP DRYNESS Last administered on 04/22/17 15:29; Admin Dose 1 APPLIC; Start 04/22/17 at 15:00 Acetaminophen/ Hydrocodone Bitart ([place] (5/325)) 1 tab Q6H GTB Last administered on 06/06/17 08:53; Admin Dose 1 TAB; Start 04/22/17 at 21:30 Diltiazem HCl 5 mg 5 mg Q1H PRN IV HEART RATE GREATER THAN 120 Last administered on 04/29/17 06:17; Admin Dose 5 MG; Start 04/29/17 at 05:00 Sodium Chloride 1,000 ml @ 0 mls/hr Q0M IV Last administered on 05/01/17 03: 00; Admin Dose 1,000 MLS/HR; Start 05/01/17 at 03:00 Sodium Chloride 1,000 ml @ 0 mls/hr Q0M IV Last administered on 05/01/17 04: 00; Admin Dose 1,000 MLS/HR; Start 05/01/17 at 03:30 Diltiazem HCl (Cardizem-D5W 125 Mg/125 ml Drip) 125 ml @ 5 mls/hr TITRATE IV Last administered on 05/02/17 19:11; Admin Dose 5 MLS/HR; Start 05/02/17 at 19: 00 Metoprolol Tartrate (Lopressor) 25 mg QID GTB Last administered on 06/06/17 12 :17; Admin Dose 25 MG; Start 05/07/17 at 09:00 Vitamin B Complex/ Vitamin C (Berocca) 1 cap DAILY PO Last administered on 06/06 08:52; Admin Dose 1 CAP; Start 05/13/17 at 09:00 Aspirin (Aspirin) 81 mg DAILY NGT Last administered on 06/06/17 08:53; Admin Dose 81 MG; Start 05/19/17 at 09:00 Lansoprazole (Prevacid) 30 mg BID@06,18 GTB Last administered on 06/06/17 05: 49; Admin Dose 30 MG; Start 05/20/17 at 18:00 Multivitamins (Multivitamin) 30 ml DAILY GTB Last administered on 06/06/17 08: 52; Admin Dose 30 ML; Start 05/24/17 at 09:00 Epoetin Perry (Epogen (Esrd)) 12,000 units TuThSa@17 SC Last administered on 17:29; Admin Dose 12,000 UNITS; Start 06/05/17 at 17:00 Assessment/Plan Chief Complaint/Hosp Course 1. acute on chronic hypoxemic respiratory failure: 2. S/P NSTEMI: due to demand ischemia. 3. CHF/ fluid overload: due to diastolic heart failure and renal failure 4. moderate 5. Arrhythmia and P afib, frequent PVC: currently in NSR. 6. ANEMIA: s/p multiple transfusion 7. s/p pneumonia, . 8. s/p sepsis and shock: BP is stable now. 9. Anasarca 10. s/p cardiopulm arrest due to resp failure 11. renal failure 12. coagulopathy; resolved now. Rec: cont resp care and vent support as per PULM Team. correct lytes prn. CONT betablocker as tolerated. . cont thyroid supplement . cont tele monitoring HD/ ultrafiltration as per renal. s/p HD on 06/05/17 & 06/06 transfuse prn cont low dose ASA 81 mg only due to recurrent anemia. THANK YOU. Problems: FRANCISCO BLACKWOOD MD Jun 06, 2017 14:45
--- NOTE | 2017-06-06 16:17 | CONS ---
Date/Time of Note Date/Time of Note DATE: 06/06/17 TIME: 16:15 Assessment/Plan Assessment/Plan Chief Complaint/Hosp Course SUBJECTIVE: No acute events overnight. No fevers, looks comfortable Indwelling: Trach, PEG Latif, RIJ p-cath 06/05 PHYSICAL EXAMINATION: This is a fragile, chronically ill- appearing, elderly woman who is awake, in no distress. HEENT: Head atraumatic, normocephalic. Sclerae anicteric. Buccal mucosa dry. NECK: Supple. Tracheostomy present. CHEST: Chest rise symmetric. Breath sounds diminished at bases. HEART: S1, S2. ABDOMEN: Soft. Bowel sounds present. EXTREMITIES: Without cyanosis. SKIN: Positive for anasarca. ASSESSMENT: 1. Status post septic shock, urinary tract infection, pneumonia. 2. Nyrvu-fd-lskihbc respiratory failure/HD dependent, s/p perm-cath. 3. Status post fungemia. 4. Eutjj-un-wecoxtb kidney disease. 5. History of Clostridium difficile colitis. 6. Left upper extremity deep vein thrombosis. PLAN: The patient remains stable, marguerite tip cx growing GNR, pt is afebrile, WBC wnl, will keep off abx DW staff Problems: Consultation Date/Type/Reason Admit Date/Time Apr 11, 2017 at 11:28 Initial Consult Date 04/12/17 Type of Consultation: id Referring Provider: NINA MACIEL DO Exam/Review of Systems Vital Signs Vitals Vital Signs Date Time Temp Pulse Resp B/P Pulse Ox O2 Delivery O2 Flow Rate FiO2 06/06/17 15:37 98.0 67 14 115/56 98 06/06/17 11:20 30 Intake and Output 06/05/17 06/05/17 06/06/17 15:00 23:00 07:00 Intake Total 860 ml 390 ml Output Total 4900 ml 400 ml Balance -4040 ml -10 ml Results Result Diagram: 06/06/17 0813 06/06/17 0813 Results 24 hrs Laboratory Tests Test 06/05/17 17:25 06/06/17 01:08 06/06/17 05:54 06/06/17 08:13 Bedside Glucose 156 137 129 White Blood Count 8.3 Red Blood Count 2.17 L Hemoglobin 6.8 *L Hematocrit 21.5 L Mean Corpuscular Volume 99.1 Mean Corpuscular Hemoglobin 31.3 Mean Corpuscular Hemoglobin Concent 31.6 L Red Cell Distribution Width 20.8 H Platelet Count 219 Mean Platelet Volume 10.7 H Neutrophils % Segmented Neutrophils % (Manual) 67 Band Neutrophils % (Manual) 8 H Lymphocytes % Lymphocytes % (Manual) 5 L Monocytes % Monocytes % (Manual) 14 H Eosinophils % Eosinophils % (Manual) 1 Basophils % Myelocytes % (Manual) 4 H Promyelocytes % (Manual) 1 H Nucleated Red Blood Cells % 0.0 Neutrophils # (Manual) 5.6 Band Neutrophils # 0.6 Absolute Lymphocytes (Manual) 0.4 L Lymphocytes # Monocytes # Absolute Monocytes (Manual) 1.1 H Eosinophils # Basophils # Myelocytes # 0.3 H Promyelocytes # 0 Nucleated Red Blood Cells # Platelet Estimate NORMAL Polychromasia 3+ Anisocytosis 1+ Microcytosis 1+ Sodium Level 131 L Potassium Level 4.3 Chloride Level 95 L Carbon Dioxide Level 29 Anion Gap 11 Blood Urea Nitrogen 82 #H Creatinine 2.03 H Glucose Level 126 Calcium Level 8.4 Phosphorus Level 4.0 Magnesium Level 2.8 H Test 06/06/17 12:15 Bedside Glucose 157 Medications Medications Current Medications Metoprolol Tartrate (Lopressor) 5 mg Q4H PRN IV HR>110 Hold SBP<110 Last administered on 04/20/17 17:36; Admin Dose 5 MG; Start 04/11/17 at 13:30 Miscellaneous Information 1 ea NOTE XX ; Start 04/11/17 at 16:30 Glucose (Glutose) 15 gm Q15M PRN PO DECREASED GLUCOSE Last administered on 05/07 03:27; Admin Dose 15 GM; Start 04/11/17 at 16:30 Glucose (Glutose) 22.5 gm Q15M PRN PO DECREASED GLUCOSE; Start 04/11/17 at 16: 30 Dextrose (D50w Syringe) 25 ml Q15M PRN IV DECREASED GLUCOSE Last administered on 04/12/17 23:56; Admin Dose 25 ML; Start 04/11/17 at 16:30 Dextrose (D50w Syringe) 50 ml Q15M PRN IV DECREASED GLUCOSE; Start 04/11/17 at 16:30 Glucagon (Glucagen) 1 mg Q15M PRN IM DECREASED GLUCOSE; Start 04/11/17 at 16:30 Glucose (Glutose) 15 gm Q15M PRN BUCCAL DECREASED GLUCOSE; Start 04/11/17 at 16 :30 Metoclopramide HCl (Reglan) 10 mg Q6 IV Last administered on 06/06/17 12:16; Admin Dose 10 MG; Start 04/12/17 at 18:00 Insulin Aspart (Novolog Insulin Pen) NOVOLOG *MILD* ALGORI... Q6H SC Last administered on 06/06/17 12:34; Admin Dose 1 UNIT; Start 04/15/17 at 00:00 IV Flush (NS 10 ml) 10 ml PRN PRN IV FLUSH LINE; Start 04/15/17 at 13:00 Amiodarone HCl (Cordarone) 200 mg BID GTB Last administered on 06/06/17 12:17 ; Admin Dose 200 MG; Start 04/16/17 at 13:00 Heparin Sodium (Porcine) (Heparin (5000 Units/0.5 ml)) 5,000 unit BID SC Last administered on 04/30/17 21:03; Admin Dose 5,000 UNIT; Start 04/18/17 at 16:22; Status Future Hold Citalopram Hydrobromide (Celexa) 20 mg DAILY NGT Last administered on 08:53; Admin Dose 20 MG; Start 04/19/17 at 09:00 Hydralazine HCl (Apresoline) 20 mg Q6H PRN IV sbp ABOVE 160 Last administered on 06/03/17 04:17; Admin Dose 20 MG; Start 04/18/17 at 18:30 Chlorhexidine Gluconate (Peridex) 15 ml BID MT Last administered on 06/06/17 08:52; Admin Dose 15 ML; Start 04/22/17 at 21:00 Vitamin A/Vitamin D (Vitamin A & D Oint) 1 applic TID TOP Last administered on 06/06/17 12:17; Admin Dose 1 APPLIC; Start 04/22/17 at 21:00 Vitamin A/Vitamin D (Vitamin A & D Oint) 1 applic TID PRN TOP DRYNESS Last administered on 04/22/17 15:29; Admin Dose 1 APPLIC; Start 04/22/17 at 15:00 Acetaminophen/ Hydrocodone Bitart ([place] (5/325)) 1 tab Q6H GTB Last administered on 06/06/17 08:53; Admin Dose 1 TAB; Start 04/22/17 at 21:30 Diltiazem HCl 5 mg 5 mg Q1H PRN IV HEART RATE GREATER THAN 120 Last administered on 04/29/17 06:17; Admin Dose 5 MG; Start 04/29/17 at 05:00 Sodium Chloride 1,000 ml @ 0 mls/hr Q0M IV Last administered on 05/01/17 03: 00; Admin Dose 1,000 MLS/HR; Start 05/01/17 at 03:00 Sodium Chloride 1,000 ml @ 0 mls/hr Q0M IV Last administered on 05/01/17 04: 00; Admin Dose 1,000 MLS/HR; Start 05/01/17 at 03:30 Diltiazem HCl (Cardizem-D5W 125 Mg/125 ml Drip) 125 ml @ 5 mls/hr TITRATE IV Last administered on 05/02/17 19:11; Admin Dose 5 MLS/HR; Start 05/02/17 at 19: 00 Metoprolol Tartrate (Lopressor) 25 mg QID GTB Last administered on 06/06/17 12 :17; Admin Dose 25 MG; Start 05/07/17 at 09:00 Vitamin B Complex/ Vitamin C (Berocca) 1 cap DAILY PO Last administered on 06/06 08:52; Admin Dose 1 CAP; Start 05/13/17 at 09:00 Aspirin (Aspirin) 81 mg DAILY NGT Last administered on 06/06/17 08:53; Admin Dose 81 MG; Start 05/19/17 at 09:00 Lansoprazole (Prevacid) 30 mg BID@18 GTB Last administered on 06/06/17 05: 49; Admin Dose 30 MG; Start 05/20/17 at 18:00 Multivitamins (Multivitamin) 30 ml DAILY GTB Last administered on 06/06/17 08: 52; Admin Dose 30 ML; Start 05/24/17 at 09:00 Epoetin Perry (Epogen (Esrd)) 12,000 units TuThSa@17 SC Last administered on 17:29; Admin Dose 12,000 UNITS; Start 06/05/17 at 17:00 LORETO MCKEON NP Jun 06, 2017 16:17
--- NOTE | 2017-06-06 22:02 | PN ---
Date/Time of Note Date/Time of Note DATE: 06/06/17 TIME: 21:51 Assessment/Plan Lines/Catheters IV Catheter Type (from [facility]): Permacath Mims in Place (from [facility]): Yes Assessment/Plan Chief Complaint/Hosp Course 1. Cholelithiasis: Tolerating tube feeds; no abdominal pain/discomfort/bloating ; +bowel function -No surgical intervention required at this time 2. Pneumonia: Recurrent +sputum cultures; appears comfortable, no fevers, s/p abx; CXR: with nodule-possible aspirated tooth; ct chest: no foreign body -pulmonary toilet -wean as tolerated 3. Vent dependent respiratory failure: 2/2 aspiration PNA+ CHF;reintubated and extubated, coded 04/21 and 05/01; comfortable on vent;AC setting -as above 4. KEYONNA: likely 2/2 septic shock; with + urine output; will need alf HD, s/ p cath placement -judicious fluid management -avoid nephrotoxic agents 5. Uncontrolled Afib: s/p amiodarone drip, on oral amiodarone; episodes of Afib Now SR -medical optimization 6. Leukocytosis with lactic acidosis: 2/2 pneumonia +/- steroids vs.fungemia vs other (urine, repeat blood cultures negative); labile -per ID 7. Macrocytic anemia: chronic vs. dilutional vs. acute bleed vs. b12/folate deficiency; hh stable -monitor -Transfuse as needed 8. Electrolyte imbalance: improved -electrolyte optimization 9. CHF: BNP elevated -judicious fluid management -medical optimization 10. Adrenal Insufficiency -solucortef 11. Oral lesions: improving 12. Hypothyroidism; tsh elevated -on synthroid 13. Hypocalcemia with hypoalbuminemia -optimize nutrition 14. Bilateral upper and lower extremity edema: hx(+) Thrombus in upper arm; lower leg pain, doppler (-) -elevate extremities -supportive 15. Hypoalbuminemia: 2/2 malnutrition +/- inflammation; decreased; tolerating tf ; -nutrition optimization -as above Patient seen and examined in collaboration with Dr. Justus Antonio. Thank you Problems: Subjective 24 Hr Interval Summary S/p dailysis catheter placement. Receiving HD today. Feeling well. No abdominal pain/discomfort. Tolerating tf, +bowel function. No fevers, chills, n/v/d/ dysuria, cp, palpitations. comfortable on vent. Exam/Review of Systems Vital Signs Vitals Vital Signs Date Time Temp Pulse Resp B/P Pulse Ox O2 Delivery O2 Flow Rate FiO2 06/06/17 21:18 97.4 69 16 160/70 99 06/06/17 16:57 30 Intake and Output 06/05/17 06/05/17 06/06/17 15:00 23:00 07:00 Intake Total 860 ml 390 ml Output Total 4900 ml 400 ml Balance -4040 ml -10 ml Exam Free Text/Dictation Constitutional: fully awake, alert pleasant Head: atraumatic, normocephalic Eyes: PERRL, nl lids, nl sclera; ENMT: No mucosa pink and moist (pink and moist with healing perioral lesions), tooth missing, Neck: non-tender, supple, tracheostomy Respiratory: diminished, comfortable on vent, min sputum Cardiovascular: nl pulses, regular rate and rhythm, Gastrointestinal: non distended, GT tubes site no erythema, no drainage, non tenderness, bowel sounds x 4 quads, soft; tf ongoing Genitourinary - Female: nl external genitalia; mims with yellow output with sediments Musculoskeletal: nl extremities to inspection Extremities: normal pulses, bilateral upper/lower extremity edema 1+; improved extremity edema Neurological: responsive Skin: nl turgor, No rash or lesions Lymph: nl lymph node Results Result Diagram: 06/06/1781206/06/17812 ADDISON FREGOSO NP Jun 06, 2017 22:02
[2017-06-07] VITALS (29 sets, daily range): BP systolic 93–168; BP diastolic 50–85; PULSE 68–85; RESP 14–21
[2017-06-07] MEDS: LEVALBUTEROL (HFA) 15 GM INHALER INH SCH ×4 (02:00→20:05)
[2017-06-07] MEDS: HYDROCODONE/APAP (5/325) TAB GTB SCH ×4 (03:30→21:31)
[2017-06-07] MEDS: INSULIN ASPART [NOVOLOG] 3 ML PEN SC SCH ×5 (06:00→23:37)
[2017-06-07 06:29] LABS: ABNORMAL IP MESSAGE 1; HEMATOCRIT 32.7 % (37.0-47.0); MEAN CORPUSCULAR HEMOGLOBIN 31.7 pg (29.0-33.0); MEAN CORPUSCULAR HGB CONC 33.9 g/dl (32.0-37.0); MEAN CORPUSCULAR VOLUME 93.4 fl (82.0-101.0); PLATELET COUNT 254 10^3/UL (140-415); RED CELL DISTRIBUTION WIDTH 18.4 % (11.5-14.5); WHITE BLOOD COUNT 11.8 10^3/ul (4.8-10.8)
[2017-06-07] MEDS: LANSOPRAZOLE 30 MG CAP GTB SCH ×2 (06:29→17:36)
[2017-06-07] MEDS: LEVOTHYROXINE 100 MCG TAB GTB SCH (06:29)
[2017-06-07] MEDS: METOCLOPRAMIDE 10 MG INJ IV SCH ×5 (06:30→23:34)
[2017-06-07 07:08] LABS: CALCIUM 8.8 mg/dl (8.4-10.2); CREATININE 1.9 mg/dl (0.44-1.00); MAGNESIUM 2.6 mg/dl (1.7-2.5); PHOSPHORUS 3.3 mg/dl (2.5-4.9); POTASSIUM 3.9 mmol/L (3.5-5.1)
[2017-06-07 07:38] LABS: HEMOGLOBIN 11.1 g/dl (12.0-16.0)
--- NOTE | 2017-06-07 08:44 | PN ---
DATE: 06/07/2017 SUBJECTIVE DATA: Subjectively, the patient remains in serious condition. Patient had hemodialysis yesterday, tolerated well. Plan for dialysis today. No other events noted. OBJECTIVE DATA: VITAL SIGNS: Blood pressure 160/70, respirations, pulse 69, temperature 97.4. HEENT: Head is normocephalic. NECK: Supple. HEART: Regular rate. LUNGS: Diminished breath sounds at the base. ABDOMEN: Soft, nontender to palpation. No rebound or guarding. EXTREMITIES: Negative for clubbing, cyanosis. Positive edema diffuse anasarca. DERMATOLOGIC: No rashes. MUSCULOSKELETAL: No joint effusion. NEUROLOGIC: No change in exam. MEDICATIONS: Reviewed. LABORATORY AND DIAGNOSTIC DATA: White count 9.8, hemoglobin 9.1, hematocrit 32.7, platelet count 254,000. Sodium 138, BUN 66, creatinine 1.90. Magnesium 2.62. ASSESSMENT AND PLAN: 1. Ventilatory dependent respiratory failure. Ventilator settings reviewed. ABGs reviewed. Continue to monitor. 2. History of thyroid cancer with tracheomalacia. The patient is status post-ENT evaluation. Continue to observe. 3. Acute kidney injury on top of chronic kidney disease, now likely progressed to end-stage renal disease. The patient is currently on dialysis, will continue. Plan for dialysis today. Outpatient dialysis is being arranged. 4. Volume overload. Continue ultrafiltration dialysis. 5. Anemia. The patient is status post-blood transfusion. Continue monitor hemoglobin and hematocrit levels. Continue Epogen. 6. Sepsis. Status post-shock. The patient is completing antibiotic course. 7. Adrenal insufficiency. Continue current steroid regimen. 8. Acute encephalopathy, etiology is toxic metabolic, improving. 9. Hypothyroid. Continue Synthroid. 10. Hyponatremia, resolved. 11. Dysphagia. Status post-percutaneous endoscopic gastrostomy tube feeding. 12. Status post-gastrointestinal bleed. 13. Gastrointestinal and deep venous thrombosis prophylaxis. Continue proton pump inhibitor and sequential leg squeezes. Dictated By: Abebe Valderrama DO /marquita/dahiana /Document#: [id number]
[2017-06-07] MEDS: METOPROLOL 25 MG TAB GTB SCH ×4 (09:00→21:31)
[2017-06-07] MEDS: CHLORHEXIDINE GLUCONATE 15 ML UD CUP MT SCH ×2 (11:15→21:31)
[2017-06-07] MEDS: VITAMIN A & D 5 GM OINT PACKET TOP SCH ×3 (11:15→21:00)
[2017-06-07 11:59] LABS: BASOPHIL # 0.1 10^3/ul (0.0-0.1); EOSINOPHILS # 0.1 10^3/ul (0.0-0.5); EOSINOPHILS % (M) 1 % (0.0-7.0); LYMPHOCYTES # 0.6 10^3/ul (0.8-2.9); METAMYELOCYTES %M 2 % (0-0); MONOCYTE # 0.7 10^3/ul (0.3-0.9); MONOCYTES % (M) 6 % (0-11); MYELOCYTES % (M) 10 % (0-0); REACTIVE LYMPHOCYTES% (M) 1 % (0-0)
[2017-06-07 12:00] LABS: ANISOCYTOSIS 1+ (0-0); POIKILOCYTOSIS 1+ (0-0)
[2017-06-07 12:01] LABS: BURR CELLS FEW; POLYCHROMASIA 1+ (0-0)
--- NOTE | 2017-06-07 13:10 | CONS ---
Date/Time of Note Date/Time of Note DATE: 06/07/17 TIME: 13:03 Assessment/Plan Assessment/Plan Chief Complaint/Hosp Course ID PROGRESS NOTE CURRENT ABX=>OFF ABX 24H INTERVAL SUMMARY/HOSPITAL COURSE * Awake/alert/oriented/responsive == she recognizes me and nods head "OK" * Current in HD session via recent [place] PermCath 06/05/17 * Femoral Amrit DC'd w tip (+)GNR resistant to Aminoglycosides; she is NOT septic * No fevers, WBC up slightly 11.8 PHYSICAL EXAMINATION: GENERAL: 66 yo F, stable on the Vent HEENT: Atraumatic, (+)Lip lesions well healed == Facial edema is much better NECK: (+)Trach in place secure to VENT CHEST: Rise symmetrical w/coarse BS, scattered rales/rhonchi ABDOMEN: Soft, peg EXTREMITIES: Warm, moves extremities ID ASSESSMENT: 66 yo F w/PMHx tongue cancer, chronic trach re-admit H from SNF with: 1. s/p Acute severe sepsis/shock on admission w/(+)fever, tachycardia, lactic acidosis, leukocytosis, (+)troponin leak = RESOLVED * Leukocytosis persisting= MILD => IV Steroids onboard * Fungemia => repeat BCx negative * s/p 06/03 GNR Femoral Line sepsis => Line DC'd patient without evidence of current sepsis 2. Anasarca w/increased facial edema/bilateral lip edema w/resolution of HSV lip lesions => IMPROVED 3. Acute respiratory failure = recurrent issue s/p intubation x3rd episode w/ extubation, now with Trach secure to Vent 3. 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 Acute CHF w/elevated BNP 8000 in setting tachycardia, sepsis, pulmonary edema on CXR 5. s/p Nausea w/emesis on admission -> RESOLVED -- This has been recurrent issue , etiology of recurrent ASP PNA/Pulm Sepsis * Query: DM Autonomic Gastroparesis * GERD 6. Cholelithiasis w/dilated CBD->HIDA scan (+cholecystitis 04/12/17=> s/p Mansi Drain 04/17/17, no surgery per GI => Asymptomatic/Stable 7. Acute renal failure = started on HD 8. Dysphagia sp PEG placement 9. Paroxysmal Afib 10. NSTEMI in setting sepsis, tachycardia, acute hypoxic respiratory failure, acute CHF exacerbation 11. Elevated glucose - iatrogenic diabetes while on IV steroids 12. Leukocytosis = partial steroids demargination 13. Lip lesions => consistent w/herpes simplex virus outbreak -> HEALED 14. s/p GIB associates with Acute on chronic anemia secondary to AVM ==> stopped , status post EGD on May 02 with injection of epinephrine 15. Recent (+)C.Diff on 03/07/16 (treated) w/(-)C.Diff 03/20/17 => Monitor for recurrent (-) MRSA Nares screen (04/03/17) INVASIVES: Trach, PEG Latif, RIJ p-cath 06/05 ABX ALLERGY: Iodine CURRENT ABX=>OFF ABX She has completed a 10 day course for recurrent ASP PNA/sepsis s/p Flagyl, + Cefepime #10+ Colistin INH #10 => DC'd 05/19/17 Valtrex,-> DC 05/17 Cancidas -> DC 05/10 Merrem -> DC'd 05/08 She completed a 14 day course upon admission for ASP PNA was OFF ABX then re- aspirated * Merrem #14 total -> DC'd 04/26=> Restarted 05/08 ID PLAN=> Monitor her OFF ABX . . Problems: Consultation Date/Type/Reason Admit Date/Time Apr 11, 2017 at 11:28 Initial Consult Date 04/11/17 Type of Consultation: id Referring Provider: NINA MACIEL DO Exam/Review of Systems Vital Signs Vitals Vital Signs Date Time Temp Pulse Resp B/P Pulse Ox O2 Delivery O2 Flow Rate FiO2 06/07/17 12:12 81 06/07/17 11:47 98.6 18 104/58 97 06/07/17 11:05 30 06/07/17 04:00 Mechanical Ventilator Intake and Output 06/06/17 06/06/17 06/07/17 15:00 23:00 07:00 Intake Total 500 ml 450 ml 470 ml Output Total 3200 ml 2900 ml 100 ml Balance -2700 ml -2450 ml 370 ml Results Result Diagram: 06/07/17 0520 06/07/17 0520 Results 24 hrs Laboratory Tests Test 06/06/17 18:26 06/07/17 05:20 06/07/17 06:00 06/07/17 09:53 Bedside Glucose 137 White Blood Count 11.8 #H Red Blood Count 3.50 #L Hemoglobin 11.1 #L Hematocrit 32.7 #L Mean Corpuscular Volume 93.4 Mean Corpuscular Hemoglobin 31.7 Mean Corpuscular Hemoglobin Concent 33.9 Red Cell Distribution Width 18.4 H Platelet Count 254 Mean Platelet Volume 10.0 Neutrophils % Segmented Neutrophils % (Manual) 70 Band Neutrophils % (Manual) 4 Lymphocytes % Lymphocytes % (Manual) 5 L Reactive Lymphocytes % (Manual) 1 H Monocytes % Monocytes % (Manual) 6 Eosinophils % Eosinophils % (Manual) 1 Basophils % Metamyelocytes % (manual) 2 H Myelocytes % (Manual) 10 H Nucleated Red Blood Cells % 0.0 Neutrophils # (Manual) 8.3 H Band Neutrophils # 0.4 Absolute Lymphocytes (Manual) 0.5 L Lymphocytes # 0.6 L Reactive Lymphocytes # 0.1 H Monocytes # 0.7 Absolute Monocytes (Manual) 0.7 Eosinophils # 0.1 Basophils # 0.1 Metamyelocytes # 0.2 H Myelocytes # 1.1 H Nucleated Red Blood Cells # Polychromasia 1+ Poikilocytosis 1+ Anisocytosis 1+ Sodium Level 138 Potassium Level 3.9 Chloride Level 98 Carbon Dioxide Level 30 Anion Gap 14 Blood Urea Nitrogen 66 H Creatinine 1.90 H Glucose Level 122 Calcium Level 8.8 Phosphorus Level 3.3 Magnesium Level 2.6 H Stool Occult Blood POSITIVE Lab Scanned Report BLOOD TRANSFUSION Medications Medications Current Medications Metoprolol Tartrate (Lopressor) 5 mg Q4H PRN IV HR>110 Hold SBP<110 Last administered on 04/20/17 17:36; Admin Dose 5 MG; Start 04/11/17 at 13:30 Miscellaneous Information 1 ea NOTE XX ; Start 04/11/17 at 16:30 Glucose (Glutose) 15 gm Q15M PRN PO DECREASED GLUCOSE Last administered on 05/07 03:27; Admin Dose 15 GM; Start 04/11/17 at 16:30 Glucose (Glutose) 22.5 gm Q15M PRN PO DECREASED GLUCOSE; Start 04/11/17 at 16: 30 Dextrose (D50w Syringe) 25 ml Q15M PRN IV DECREASED GLUCOSE Last administered on 04/12/17 23:56; Admin Dose 25 ML; Start 04/11/17 at 16:30 Dextrose (D50w Syringe) 50 ml Q15M PRN IV DECREASED GLUCOSE; Start 04/11/17 at 16:30 Glucagon (Glucagen) 1 mg Q15M PRN IM DECREASED GLUCOSE; Start 04/11/17 at 16:30 Glucose (Glutose) 15 gm Q15M PRN BUCCAL DECREASED GLUCOSE; Start 04/11/17 at 16 :30 Metoclopramide HCl (Reglan) 10 mg Q6 IV Last administered on 06/07/17 11:15; Admin Dose 10 MG; Start 04/12/17 at 18:00 Insulin Aspart (Novolog Insulin Pen) NOVOLOG *MILD* ALGORI... Q6H SC Last administered on 06/06/17 12:34; Admin Dose 1 UNIT; Start 04/15/17 at 00:00 IV Flush (NS 10 ml) 10 ml PRN PRN IV FLUSH LINE; Start 04/15/17 at 13:00 Amiodarone HCl (Cordarone) 200 mg BID GTB Last administered on 06/06/17 21:08 ; Admin Dose 200 MG; Start 04/16/17 at 13:00 Citalopram Hydrobromide (Celexa) 20 mg DAILY NGT Last administered on 08:53; Admin Dose 20 MG; Start 04/19/17 at 09:00 Hydralazine HCl (Apresoline) 20 mg Q6H PRN IV sbp ABOVE 160 Last administered on 06/03/17 04:17; Admin Dose 20 MG; Start 04/18/17 at 18:30 Chlorhexidine Gluconate (Peridex) 15 ml BID MT Last administered on 06/07/17 11:15; Admin Dose 15 ML; Start 04/22/17 at 21:00 Vitamin A/Vitamin D (Vitamin A & D Oint) 1 applic TID TOP Last administered on 06/07/17 11:15; Admin Dose 1 APPLIC; Start 04/22/17 at 21:00 Vitamin A/Vitamin D (Vitamin A & D Oint) 1 applic TID PRN TOP DRYNESS Last administered on 04/22/17 15:29; Admin Dose 1 APPLIC; Start 04/22/17 at 15:00 Acetaminophen/ Hydrocodone Bitart ([place] (5/325)) 1 tab Q6H GTB Last administered on 06/07/17 11:16; Admin Dose 1 TAB; Start 04/22/17 at 21:30 Diltiazem HCl 5 mg 5 mg Q1H PRN IV HEART RATE GREATER THAN 120 Last administered on 04/29/17 06:17; Admin Dose 5 MG; Start 04/29/17 at 05:00 Sodium Chloride 1,000 ml @ 0 mls/hr Q0M IV Last administered on 05/01/17 03: 00; Admin Dose 1,000 MLS/HR; Start 05/01/17 at 03:00 Sodium Chloride 1,000 ml @ 0 mls/hr Q0M IV Last administered on 05/01/17 04: 00; Admin Dose 1,000 MLS/HR; Start 05/01/17 at 03:30 Diltiazem HCl (Cardizem-D5W 125 Mg/125 ml Drip) 125 ml @ 5 mls/hr TITRATE IV Last administered on 05/02/17 19:11; Admin Dose 5 MLS/HR; Start 05/02/17 at 19: 00 Metoprolol Tartrate (Lopressor) 25 mg QID GTB Last administered on 06/06/17 21 :08; Admin Dose 25 MG; Start 05/07/17 at 09:00 Vitamin B Complex/ Vitamin C (Berocca) 1 cap DAILY PO Last administered on 06/06 08:52; Admin Dose 1 CAP; Start 05/13/17 at 09:00 Aspirin (Aspirin) 81 mg DAILY NGT Last administered on 06/06/17 08:53; Admin Dose 81 MG; Start 05/19/17 at 09:00 Lansoprazole (Prevacid) 30 mg BID@06,18 GTB Last administered on 06/07/17 06: 29; Admin Dose 30 MG; Start 05/20/17 at 18:00 Multivitamins (Multivitamin) 30 ml DAILY GTB Last administered on 06/06/17 08: 52; Admin Dose 30 ML; Start 05/24/17 at 09:00 Epoetin Perry (Epogen (Esrd)) 12,000 units TuThSa@17 SC Last administered on 17:29; Admin Dose 12,000 UNITS; Start 06/05/17 at 17:00 MARGOT WILLS NP Jun 07, 2017 13:10
--- NOTE | 2017-06-07 14:49 | CONS ---
Date/Time of Note Date/Time of Note DATE: 06/07/17 TIME: 14:48 Consult Date/Type/Reason Admit Date/Time Apr 11, 2017 at 11:28 Initial Consult Date 04/12/17 Type of Consultation: id Ordering Provider: NINA MACIEL DO Subjective CARDIOLOGY FOLLOW UP NOTE: D/W staff and rhythm was reviewed. pt remains in NSR. no afib overnight D/W no chest pain or pressure or palpitations. pt still s/p trach on vent on tele. s/p transfusion on 05/14/17 and getting transfused again 05/26/17 getting transfusion 06/06/17 pt is less lethargic today pt is on HD now and so far is tolerating it. Objective: General: s/p trach on vent HEENT: NC/AT. . oropharynx with multiple lesions. . NECK: NO JVD. no stridor. s/p trach on vent CV: RRR. systolic ejection murmur; no gallop or rubs. PULM: + mild rhonchi. no wheezes. GI: SOFT, NT, ND, no rebound or guarding s/p PEG Extremity: 2-3+ B/L LE edema. no clubbing. neuro: awake and responds appropriately Psych: calm rectal: deferred Derm: multiple echymosis chest: s/p right chest HD access in place. Objective Vital Signs Date Time Temp Pulse Resp B/P Pulse Ox O2 Delivery O2 Flow Rate FiO2 06/07/17 13:50 78 06/07/17 13:25 15 99 30 06/07/17 11:47 98.6 104/58 06/07/17 04:00 Mechanical Ventilator Intake and Output 06/06/17 06/06/17 06/07/17 15:00 23:00 07:00 Intake Total 500 ml 450 ml 470 ml Output Total 3200 ml 2900 ml 100 ml Balance -2700 ml -2450 ml 370 ml Results/Medications Result Diagram: 06/07/17 0520 06/07/17 0520 Results 24 hrs Laboratory Tests Test 06/06/17 18:26 06/06/17 23:47 06/07/17 05:20 06/07/17 06:00 Bedside Glucose 137 110 White Blood Count 11.8 #H Red Blood Count 3.50 #L Hemoglobin 11.1 #L Hematocrit 32.7 #L Mean Corpuscular Volume 93.4 Mean Corpuscular Hemoglobin 31.7 Mean Corpuscular Hemoglobin Concent 33.9 Red Cell Distribution Width 18.4 H Platelet Count 254 Mean Platelet Volume 10.0 Neutrophils % Segmented Neutrophils % (Manual) 70 Band Neutrophils % (Manual) 4 Lymphocytes % Lymphocytes % (Manual) 5 L Reactive Lymphocytes % (Manual) 1 H Monocytes % Monocytes % (Manual) 6 Eosinophils % Eosinophils % (Manual) 1 Basophils % Metamyelocytes % (manual) 2 H Myelocytes % (Manual) 10 H Nucleated Red Blood Cells % 0.0 Neutrophils # (Manual) 8.3 H Band Neutrophils # 0.4 Absolute Lymphocytes (Manual) 0.5 L Lymphocytes # 0.6 L Reactive Lymphocytes # 0.1 H Monocytes # 0.7 Absolute Monocytes (Manual) 0.7 Eosinophils # 0.1 Basophils # 0.1 Metamyelocytes # 0.2 H Myelocytes # 1.1 H Nucleated Red Blood Cells # Polychromasia 1+ Poikilocytosis 1+ Anisocytosis 1+ Sodium Level 138 Potassium Level 3.9 Chloride Level 98 Carbon Dioxide Level 30 Anion Gap 14 Blood Urea Nitrogen 66 H Creatinine 1.90 H Glucose Level 122 Calcium Level 8.8 Phosphorus Level 3.3 Magnesium Level 2.6 H Stool Occult Blood POSITIVE Test 06/07/17 06:26 06/07/17 09:53 06/07/17 12:16 Bedside Glucose 130 138 Lab Scanned Report BLOOD TRANSFUSION Medications Current Medications Metoprolol Tartrate (Lopressor) 5 mg Q4H PRN IV HR>110 Hold SBP<110 Last administered on 04/20/17 17:36; Admin Dose 5 MG; Start 04/11/17 at 13:30 Miscellaneous Information 1 ea NOTE XX ; Start 04/11/17 at 16:30 Glucose (Glutose) 15 gm Q15M PRN PO DECREASED GLUCOSE Last administered on 05/07 03:27; Admin Dose 15 GM; Start 04/11/17 at 16:30 Glucose (Glutose) 22.5 gm Q15M PRN PO DECREASED GLUCOSE; Start 04/11/17 at 16: 30 Dextrose (D50w Syringe) 25 ml Q15M PRN IV DECREASED GLUCOSE Last administered on 04/12/17 23:56; Admin Dose 25 ML; Start 04/11/17 at 16:30 Dextrose (D50w Syringe) 50 ml Q15M PRN IV DECREASED GLUCOSE; Start 04/11/17 at 16:30 Glucagon (Glucagen) 1 mg Q15M PRN IM DECREASED GLUCOSE; Start 04/11/17 at 16:30 Glucose (Glutose) 15 gm Q15M PRN BUCCAL DECREASED GLUCOSE; Start 04/11/17 at 16 :30 Metoclopramide HCl (Reglan) 10 mg Q6 IV Last administered on 06/07/17 11:15; Admin Dose 10 MG; Start 04/12/17 at 18:00 Insulin Aspart (Novolog Insulin Pen) NOVOLOG *MILD* ALGORI... Q6H SC Last administered on 06/06/17 12:34; Admin Dose 1 UNIT; Start 04/15/17 at 00:00 IV Flush (NS 10 ml) 10 ml PRN PRN IV FLUSH LINE; Start 04/15/17 at 13:00 Amiodarone HCl (Cordarone) 200 mg BID GTB Last administered on 06/06/17 21:08 ; Admin Dose 200 MG; Start 04/16/17 at 13:00 Citalopram Hydrobromide (Celexa) 20 mg DAILY NGT Last administered on 08:53; Admin Dose 20 MG; Start 04/19/17 at 09:00 Hydralazine HCl (Apresoline) 20 mg Q6H PRN IV sbp ABOVE 160 Last administered on 06/03/17 04:17; Admin Dose 20 MG; Start 04/18/17 at 18:30 Chlorhexidine Gluconate (Peridex) 15 ml BID MT Last administered on 06/07/17 11:15; Admin Dose 15 ML; Start 04/22/17 at 21:00 Vitamin A/Vitamin D (Vitamin A & D Oint) 1 applic TID TOP Last administered on 06/07/17 11:15; Admin Dose 1 APPLIC; Start 04/22/17 at 21:00 Vitamin A/Vitamin D (Vitamin A & D Oint) 1 applic TID PRN TOP DRYNESS Last administered on 04/22/17 15:29; Admin Dose 1 APPLIC; Start 04/22/17 at 15:00 Acetaminophen/ Hydrocodone Bitart ([place] (5/325)) 1 tab Q6H GTB Last administered on 06/07/17 11:16; Admin Dose 1 TAB; Start 04/22/17 at 21:30 Diltiazem HCl 5 mg 5 mg Q1H PRN IV HEART RATE GREATER THAN 120 Last administered on 04/29/17 06:17; Admin Dose 5 MG; Start 04/29/17 at 05:00 Sodium Chloride 1,000 ml @ 0 mls/hr Q0M IV Last administered on 05/01/17 03: 00; Admin Dose 1,000 MLS/HR; Start 05/01/17 at 03:00 Sodium Chloride 1,000 ml @ 0 mls/hr Q0M IV Last administered on 05/01/17 04: 00; Admin Dose 1,000 MLS/HR; Start 05/01/17 at 03:30 Diltiazem HCl (Cardizem-D5W 125 Mg/125 ml Drip) 125 ml @ 5 mls/hr TITRATE IV Last administered on 05/02/17 19:11; Admin Dose 5 MLS/HR; Start 05/02/17 at 19: 00 Metoprolol Tartrate (Lopressor) 25 mg QID GTB Last administered on 06/06/17 21 :08; Admin Dose 25 MG; Start 05/07/17 at 09:00 Vitamin B Complex/ Vitamin C (Berocca) 1 cap DAILY PO Last administered on 06/06 08:52; Admin Dose 1 CAP; Start 05/13/17 at 09:00 Aspirin (Aspirin) 81 mg DAILY NGT Last administered on 06/06/17 08:53; Admin Dose 81 MG; Start 05/19/17 at 09:00 Lansoprazole (Prevacid) 30 mg BID@06,18 GTB Last administered on 06/07/17 06: 29; Admin Dose 30 MG; Start 05/20/17 at 18:00 Multivitamins (Multivitamin) 30 ml DAILY GTB Last administered on 06/06/17 08: 52; Admin Dose 30 ML; Start 05/24/17 at 09:00 Epoetin Perry (Epogen (Esrd)) 12,000 units TuThSa@17 SC Last administered on 17:29; Admin Dose 12,000 UNITS; Start 06/05/17 at 17:00 Assessment/Plan Chief Complaint/Hosp Course 1. acute on chronic hypoxemic respiratory failure: 2. S/P NSTEMI: due to demand ischemia. 3. CHF/ fluid overload: due to diastolic heart failure and renal failure 4. moderate 5. Arrhythmia and P afib, frequent PVC: currently in NSR. 6. ANEMIA: s/p multiple transfusion 7. s/p pneumonia, . 8. s/p sepsis and shock: BP is stable now. 9. Anasarca 10. s/p cardiopulm arrest due to resp failure 11. renal failure 12. coagulopathy; resolved now. Rec: cont resp care and vent support as per PULM Team. correct lytes prn. CONT betablocker as tolerated. . cont thyroid supplement . cont tele monitoring HD/ ultrafiltration as per renal. s/p HD on 06/05/17 & 06/06, 06/07 transfuse prn, currently H/H has improved. cont low dose ASA 81 mg only due to recurrent anemia. THANK YOU. Problems: FRANCISCO BLACKWOOD MD Jun 07, 2017 14:49
[2017-06-07] MEDS: HEPARIN 1000 UNITS/ML 10 ML INJ CATHETER SCH (16:01)
[2017-06-07] MEDS: ASPIRIN 81 MG TAB NGT SCH (16:17)
[2017-06-07] MEDS: VITAMIN B COMPLEX/VIT C CAP PO SCH (16:17)
[2017-06-07] MEDS: AMIODARONE 200 MG TAB GTB SCH ×2 (16:19→21:30)
[2017-06-07] MEDS: MULTIVITAMINS 30 ML CUP GTB SCH (16:22)
[2017-06-07] MEDS: CITALOPRAM 20 MG TAB NGT SCH (16:22)
[2017-06-07] MEDS: EPOETIN 4000 UNITS/1 ML INJ (ESRD) SC SCH (16:34)
--- NOTE | 2017-06-07 18:12 | CONS ---
Date/Time of Note Date/Time of Note DATE: 06/07/17 TIME: 18:10 Consult Date/Type/Reason Admit Date/Time Apr 11, 2017 at 11:28 Initial Consult Date 04/12/17 Type of Consultation: Pulm Ordering Provider: NINA MACIEL DO Subjective On [facility] ventilation Objective Vital Signs Date Time Temp Pulse Resp B/P Pulse Ox O2 Delivery O2 Flow Rate FiO2 06/07/17 17:15 75 14 97 30 06/07/17 15:31 98.2 102/56 06/07/17 04:00 Mechanical Ventilator Intake and Output 06/06/17 06/06/17 06/07/17 15:00 23:00 07:00 Intake Total 500 ml 450 ml 470 ml Output Total 3200 ml 2900 ml 100 ml Balance -2700 ml -2450 ml 370 ml Exam HEENT: Neck supple; no JVD; no LAD CVS: RRR, S1 and S2 CHEST: Coarse BS ABD: Soft, NT, + BS EXT: No c/c/ + edema Results/Medications Result Diagram: 06/07/17 0520 06/07/17 0520 Results 24 hrs Laboratory Tests Test 06/06/17 18:26 06/06/17 23:47 06/07/17 05:20 06/07/17 06:00 Bedside Glucose 137 110 White Blood Count 11.8 #H Red Blood Count 3.50 #L Hemoglobin 11.1 #L Hematocrit 32.7 #L Mean Corpuscular Volume 93.4 Mean Corpuscular Hemoglobin 31.7 Mean Corpuscular Hemoglobin Concent 33.9 Red Cell Distribution Width 18.4 H Platelet Count 254 Mean Platelet Volume 10.0 Neutrophils % Segmented Neutrophils % (Manual) 70 Band Neutrophils % (Manual) 4 Lymphocytes % Lymphocytes % (Manual) 5 L Reactive Lymphocytes % (Manual) 1 H Monocytes % Monocytes % (Manual) 6 Eosinophils % Eosinophils % (Manual) 1 Basophils % Metamyelocytes % (manual) 2 H Myelocytes % (Manual) 10 H Nucleated Red Blood Cells % 0.0 Neutrophils # (Manual) 8.3 H Band Neutrophils # 0.4 Absolute Lymphocytes (Manual) 0.5 L Lymphocytes # 0.6 L Reactive Lymphocytes # 0.1 H Monocytes # 0.7 Absolute Monocytes (Manual) 0.7 Eosinophils # 0.1 Basophils # 0.1 Metamyelocytes # 0.2 H Myelocytes # 1.1 H Nucleated Red Blood Cells # Polychromasia 1+ Poikilocytosis 1+ Anisocytosis 1+ Sodium Level 138 Potassium Level 3.9 Chloride Level 98 Carbon Dioxide Level 30 Anion Gap 14 Blood Urea Nitrogen 66 H Creatinine 1.90 H Glucose Level 122 Calcium Level 8.8 Phosphorus Level 3.3 Magnesium Level 2.6 H Stool Occult Blood POSITIVE Test 06/07/17 06:26 06/07/17 09:53 06/07/17 12:16 06/07/17 17:38 Bedside Glucose 130 138 145 Lab Scanned Report BLOOD TRANSFUSION Medications Current Medications Metoprolol Tartrate (Lopressor) 5 mg Q4H PRN IV HR>110 Hold SBP<110 Last administered on 04/20/17 17:36; Admin Dose 5 MG; Start 04/11/17 at 13:30 Miscellaneous Information 1 ea NOTE XX ; Start 04/11/17 at 16:30 Glucose (Glutose) 15 gm Q15M PRN PO DECREASED GLUCOSE Last administered on 05/07 03:27; Admin Dose 15 GM; Start 04/11/17 at 16:30 Glucose (Glutose) 22.5 gm Q15M PRN PO DECREASED GLUCOSE; Start 04/11/17 at 16: 30 Dextrose (D50w Syringe) 25 ml Q15M PRN IV DECREASED GLUCOSE Last administered on 04/12/17 23:56; Admin Dose 25 ML; Start 04/11/17 at 16:30 Dextrose (D50w Syringe) 50 ml Q15M PRN IV DECREASED GLUCOSE; Start 04/11/17 at 16:30 Glucagon (Glucagen) 1 mg Q15M PRN IM DECREASED GLUCOSE; Start 04/11/17 at 16:30 Glucose (Glutose) 15 gm Q15M PRN BUCCAL DECREASED GLUCOSE; Start 04/11/17 at 16 :30 Metoclopramide HCl (Reglan) 10 mg Q6 IV Last administered on 06/07/17 17:36; Admin Dose 10 MG; Start 04/12/17 at 18:00 Insulin Aspart (Novolog Insulin Pen) NOVOLOG *MILD* ALGORI... Q6H SC Last administered on 06/07/17 17:41; Admin Dose 1 UNIT; Start 04/15/17 at 00:00 IV Flush (NS 10 ml) 10 ml PRN PRN IV FLUSH LINE; Start 04/15/17 at 13:00 Amiodarone HCl (Cordarone) 200 mg BID GTB Last administered on 06/07/17 16:19 ; Admin Dose 200 MG; Start 04/16/17 at 13:00 Citalopram Hydrobromide (Celexa) 20 mg DAILY NGT Last administered on 16:22; Admin Dose 20 MG; Start 04/19/17 at 09:00 Hydralazine HCl (Apresoline) 20 mg Q6H PRN IV sbp ABOVE 160 Last administered on 06/03/17 04:17; Admin Dose 20 MG; Start 04/18/17 at 18:30 Chlorhexidine Gluconate (Peridex) 15 ml BID MT Last administered on 06/07/17 11:15; Admin Dose 15 ML; Start 04/22/17 at 21:00 Vitamin A/Vitamin D (Vitamin A & D Oint) 1 applic TID TOP Last administered on 06/07/17 16:16; Admin Dose 1 APPLIC; Start 04/22/17 at 21:00 Vitamin A/Vitamin D (Vitamin A & D Oint) 1 applic TID PRN TOP DRYNESS Last administered on 04/22/17 15:29; Admin Dose 1 APPLIC; Start 04/22/17 at 15:00 Acetaminophen/ Hydrocodone Bitart ([place] (5/325)) 1 tab Q6H GTB Last administered on 06/07/17 16:32; Admin Dose 1 TAB; Start 04/22/17 at 21:30 Diltiazem HCl 5 mg 5 mg Q1H PRN IV HEART RATE GREATER THAN 120 Last administered on 04/29/17 06:17; Admin Dose 5 MG; Start 04/29/17 at 05:00 Sodium Chloride 1,000 ml @ 0 mls/hr Q0M IV Last administered on 05/01/17 03: 00; Admin Dose 1,000 MLS/HR; Start 05/01/17 at 03:00 Sodium Chloride 1,000 ml @ 0 mls/hr Q0M IV Last administered on 05/01/17 04: 00; Admin Dose 1,000 MLS/HR; Start 05/01/17 at 03:30 Diltiazem HCl (Cardizem-D5W 125 Mg/125 ml Drip) 125 ml @ 5 mls/hr TITRATE IV Last administered on 05/02/17 19:11; Admin Dose 5 MLS/HR; Start 05/02/17 at 19: 00 Metoprolol Tartrate (Lopressor) 25 mg QID GTB Last administered on 06/07/17 16 :33; Admin Dose 25 MG; Start 05/07/17 at 09:00 Vitamin B Complex/ Vitamin C (Berocca) 1 cap DAILY PO Last administered on 06/07 16:17; Admin Dose 1 CAP; Start 05/13/17 at 09:00 Aspirin (Aspirin) 81 mg DAILY NGT Last administered on 06/07/17 16:17; Admin Dose 81 MG; Start 05/19/17 at 09:00 Lansoprazole (Prevacid) 30 mg BID@06,18 GTB Last administered on 06/07/17 17: 36; Admin Dose 30 MG; Start 05/20/17 at 18:00 Multivitamins (Multivitamin) 30 ml DAILY GTB Last administered on 06/07/17 16: 22; Admin Dose 30 ML; Start 05/24/17 at 09:00 Epoetin Perry (Epogen (Esrd)) 12,000 units TuThSa@17 SC Last administered on 16:34; Admin Dose 12,000 UNITS; Start 06/05/17 at 17:00 Assessment/Plan Chief Complaint/Hosp Course Briefly, this is a 66-year-old female with a history of chronic resp failure s/ p prolonged hospitalization and trach, recently decannulated ~ 3 weeks ago, dysphagia s/p PEG, admitted 2 days prior from SNF with severe septic shock requiring pressors and [facility] Problems: Additional Assessment/Plan IMP: 1. VDRF 2. h/o tracheomalacia 3. KEYONNA 4. Encephalopathy 5. s/p sepsis 6. Adrenal insuff RECS: 1. Will resume weaning efforts as tolerated with SIMV with PS MAUREEN COREA MD Jun 07, 2017 18:12
--- NOTE | 2017-06-07 23:41 | PN ---
Date/Time of Note Date/Time of Note DATE: 06/07/17 TIME: 23:41 Assessment/Plan Lines/Catheters IV Catheter Type (from [facility]): perm-a-cath Latif in Place (from [facility]): Yes Assessment/Plan Chief Complaint/Hosp Course 1. Cholelithiasis: Tolerating tube feeds; no abdominal pain/discomfort/bloating ; +bowel function -No surgical intervention required at this time 2. Pneumonia: Recurrent +sputum cultures; appears comfortable, no fevers, s/p abx; CXR: with nodule-possible aspirated tooth; ct chest: no foreign body -pulmonary toilet -wean as tolerated 3. Vent dependent respiratory failure: 2/2 aspiration PNA+ CHF;reintubated and extubated, coded 04/21 and 05/01; comfortable on vent -as above 4. KEYONNA: likely 2/2 septic shock; with + urine output; will need usp HD, pending cath placement today -judicious fluid management -avoid nephrotoxic agents 5. Uncontrolled Afib: s/p amiodarone drip, on oral amiodarone; episodes of Afib Now SR -medical optimization 6. Leukocytosis with lactic acidosis: 2/2 pneumonia +/- steroids vs.fungemia vs other (urine, repeat blood cultures negative); labile -per ID 7. Macrocytic anemia: chronic vs. dilutional vs. acute bleed vs. b12/folate deficiency; hh stable -monitor -Transfuse as needed 8. Electrolyte imbalance: (hyponatremia, hypokalemia); improved -electrolyte optimization 9. CHF: BNP elevated -judicious fluid management -medical optimization 10. Adrenal Insufficiency -solucortef 11. Oral lesions: improving 12. Hypothyroidism; tsh elevated -on synthroid 13. Hypocalcemia with hypoalbuminemia -optimize nutrition 14. Bilateral upper and lower extremity edema: hx(+) Thrombus in upper arm; lower leg pain, doppler (-) -elevate extremities -supportive 15. Hypoalbuminemia: 2/2 malnutrition +/- inflammation; decreased; tolerating tf ; -nutrition optimization -as above Patient seen and examined in collaboration with Dr. Justus Antonio. Thank you Problems: Exam/Review of Systems Vital Signs Vitals Vital Signs Date Time Temp Pulse Resp B/P Pulse Ox O2 Delivery O2 Flow Rate FiO2 06/07/17 21:24 79 17 99 30 06/07/17 19:52 98.7 126/74 06/07/17 04:00 Mechanical Ventilator Intake and Output 06/06/17 06/06/17 06/07/17 15:00 23:00 07:00 Intake Total 500 ml 450 ml 470 ml Output Total 3200 ml 2900 ml 100 ml Balance -2700 ml -2450 ml 370 ml Results Result Diagram: 06/07/17 0520 06/07/17 0520 ADDISON FREGOSO NP Jun 07, 2017 23:41
[2017-06-08] VITALS (31 sets, daily range): BP systolic 104–169; BP diastolic 53–96; PULSE 72–88; RESP 14–21
[2017-06-08] MEDS: LEVALBUTEROL (HFA) 15 GM INHALER INH SCH ×4 (01:13→20:39)
[2017-06-08] MEDS: HYDROCODONE/APAP (5/325) TAB GTB SCH ×4 (03:57→20:30)
[2017-06-08] MEDS: METOCLOPRAMIDE 10 MG INJ IV SCH ×4 (05:14→23:27)
[2017-06-08] MEDS: INSULIN ASPART [NOVOLOG] 3 ML PEN SC SCH ×4 (05:17→23:35)
[2017-06-08] MEDS: LANSOPRAZOLE 30 MG CAP GTB SCH ×2 (05:17→17:32)
[2017-06-08] MEDS: LEVOTHYROXINE 100 MCG TAB GTB SCH (06:02)
[2017-06-08 07:06] LABS: ABNORMAL IP MESSAGE 1; HEMATOCRIT 33.3 % (37.0-47.0); HEMOGLOBIN 11.1 g/dl (12.0-16.0); MEAN CORPUSCULAR HEMOGLOBIN 31.5 pg (29.0-33.0); MEAN CORPUSCULAR HGB CONC 33.3 g/dl (32.0-37.0); MEAN CORPUSCULAR VOLUME 94.6 fl (82.0-101.0); MEAN PLATELET VOLUME 9.9 fl (7.4-10.4); NUCLEATED RED BLOOD CELLS% 0.1 /100WBC (0.0-0.0); PLATELET COUNT 266 10^3/UL (140-415); RED BLOOD COUNT 3.52 10^6/ul (4.20-5.40); RED CELL DISTRIBUTION WIDTH 18.5 % (11.5-14.5); WHITE BLOOD COUNT 14.9 10^3/ul (4.8-10.8)
[2017-06-08 07:13] LABS: POSITIVE DIFF @See below
[2017-06-08 07:54] LABS: CALCIUM 9.1 mg/dl (8.4-10.2); CREATININE 1.78 mg/dl (0.44-1.00); POTASSIUM 3.8 mmol/L (3.5-5.1)
[2017-06-08 08:28] LABS: T3 UPTAKE 34.2 % (23.5-40.5)
[2017-06-08] MEDS: AMIODARONE 200 MG TAB GTB SCH ×2 (09:20→20:31)
[2017-06-08] MEDS: METOPROLOL 25 MG TAB GTB SCH ×4 (09:21→20:31)
[2017-06-08] MEDS: MULTIVITAMINS 30 ML CUP GTB SCH (09:21)
[2017-06-08] MEDS: VITAMIN B COMPLEX/VIT C CAP PO SCH (09:22)
[2017-06-08] MEDS: CHLORHEXIDINE GLUCONATE 15 ML UD CUP MT SCH ×2 (09:22→20:30)
[2017-06-08] MEDS: VITAMIN A & D 5 GM OINT PACKET TOP SCH ×3 (09:22→20:32)
[2017-06-08] MEDS: ASPIRIN 81 MG TAB NGT SCH (09:22)
[2017-06-08] MEDS: CITALOPRAM 20 MG TAB NGT SCH (09:22)
[2017-06-08 10:00] LABS: EOSINOPHILS % (M) 1 % (0-7); MONOCYTES % (M) 12 % (0-11); MYELOCYTES % (M) 3 % (0-0); PLASMA CELLS #M 0.1 10^3/ul (0.0-0.0); PLASMAC%(M) 1 % (0); PROMYELOCYTES #M 0 10^3/ul (0-0); PROMYELOCYTES % (M) 2 % (0-0)
[2017-06-08 10:26] LABS: THYROID STIMULATING HORMONE 57.1 MIU/L (0.465-4.680)
--- NOTE | 2017-06-08 11:00 | PN ---
DATE: 06/08/2017 SUBJECTIVE DATA: The patient is stable. No events overnight. The patient is scheduled for hemodialysis today. OBJECTIVE DATA: VITAL SIGNS: Blood pressure is 120/84, respirations 19, pulse 85, temperature 98.2. HEENT: Head is normocephalic. NECK: Supple. HEART: Regular rate. LUNGS: Diminished breath sounds at the base. ABDOMEN: Soft, nontender to palpation. No rebound or guarding. EXTREMITIES: Negative for clubbing, cyanosis. Positive edema. DERMATOLOGIC: No rashes. MUSCULOSKELETAL: No joint effusion. NEUROLOGIC: No change in exam. MEDICATIONS: Reviewed. LABORATORY AND DIAGNOSTIC DATA: Currently pending. ASSESSMENT AND PLAN: 1. Ventilatory-dependent respiratory failure. Vent settings reviewed. ABGs reviewed. Continue to monitor. 2. History of thyroid cancer with tracheomalacia. The patient is status post ENT evaluation. Continue to observe. 3. Acute kidney injury on top of chronic kidney disease, now likely progressed to end-stage renal disease. The patient is on intermittent dialysis. Plan for dialysis today. 4. Volume overload. Continue ultrafiltration dialysis. 5. Anemia. Monitor H and H levels. Continue Epogen. 6. Sepsis status post shock. The patient has completed antibiotic course. 7. Adrenal insufficiency. Continue current steroid regimen. 8. Acute encephalopathy, etiology is toxic metabolic. 9. Hypothyroidism. Continue Synthroid. 10. Hyponatremia, resolved. 11. Dysphagia status post percutaneous endoscopic gastrostomy. Continue tube feeding. 12. Status post gastrointestinal bleed. Gastrointestinal and deep venous thrombosis prophylaxis. Continue PPI and sequential leg 13. squeezes. DISPOSITION: The patient is pending eventual transfer to SNF once outpatient hemodialysis is arranged. Dictated By: Abebe Valderrama DO /marquita/anne-marie /Document#: [id number]
--- NOTE | 2017-06-08 11:41 | CONS ---
Date/Time of Note Date/Time of Note DATE: 06/08/17 TIME: 11:37 Assessment/Plan Assessment/Plan Problems: (1) Steroid dependence Status: Resolved Comment: Pt. was taken off of hydrocortisone 11 days ago. Suspect she may still need steroids if she is physically stressed again but for now, doing well , maintaining HR and BP and no evidence of labs of adrenal insufficiency. Ok to remain off glucocorticoids for now w/ low-threshold to restart them if she becomes more ill. (2) Hypothyroidism Status: Chronic Comment: TSH rising despite NL FT4I. Obviously current dosage of LT4 inadequate for this patient. Will increase from 100 to 150 mcg/d. Qualifiers: Hypothyroidism type: acquired Qualified Code: E03.9 - Acquired hypothyroidism Consultation Date/Type/Reason Admit Date/Time Apr 11, 2017 at 11:28 Initial Consult Date 04/14/17 Type of Consultation: Endocrinology Reason for Consultation steroid dependence Referring Provider: NINA MACIEL DO 24 HR Interval Summary Subjective hx not possible: pt non-verbal Exam/Review of Systems Vital Signs Vitals VS - Last 72 Hours, by Label Date Time Temp Pulse Resp B/P Pulse Ox O2 Delivery O2 Flow Rate FiO2 06/08/17 11:15 78 14 98 30 06/08/17 09:25 84 18 96 30 06/08/17 08:33 98.5 79 20 114/53 96 06/08/17 08:12 98.7 82 18 104/59 99 06/08/17 08:04 85 06/08/17 07:35 86 14 96 30 06/08/17 07:35 86 14 96 30 06/08/17 06:00 88 06/08/17 06:00 87 18 06/08/17 05:30 86 06/08/17 05:25 85 16 97 30 06/08/17 05:00 85 06/08/17 04:30 87 06/08/17 04:13 85 06/08/17 04:01 98.2 85 18 128/84 99 06/08/17 04:00 86 06/08/17 04:00 86 18 06/08/17 03:05 82 17 97 30 06/08/17 01:05 79 15 97 30 06/08/17 00:18 98.6 79 18 169/96 97 06/08/17 00:17 80 06/07/17 23:35 79 15 96 30 06/07/17 21:24 79 17 99 30 06/07/17 20:07 80 06/07/17 20:00 30 06/07/17 19:52 98.7 79 18 126/74 97 06/07/17 19:26 80 15 98 30 06/07/17 17:15 75 14 97 30 06/07/17 16:09 83 06/07/17 15:50 82 06/07/17 15:50 82 20 06/07/17 15:31 98.2 81 18 102/56 99 06/07/17 15:20 82 06/07/17 15:15 82 15 98 30 06/07/17 14:50 84 06/07/17 14:20 85 06/07/17 13:50 78 06/07/17 13:25 83 15 99 30 06/07/17 13:20 83 06/07/17 12:50 83 06/07/17 12:50 83 18 06/07/17 12:12 81 06/07/17 11:47 98.6 79 18 104/58 97 06/07/17 11:05 81 16 97 30 06/07/17 09:25 80 17 97 30 06/07/17 08:22 81 06/07/17 08:00 30 06/07/17 07:59 98.6 80 18 127/81 97 06/07/17 07:40 82 21 97 30 06/07/17 07:40 82 21 97 30 06/07/17 06:25 74 17 99 30 06/07/17 04:00 98.5 68 16 122/64 98 Mechanical Ventilator 06/07/17 03:23 75 16 98 30 06/07/17 01:37 75 14 96 30 06/07/17 00:00 97.8 71 16 126/63 97 Mechanical Ventilator 06/06/17 23:00 72 13 97 30 06/06/17 21:18 97.4 69 16 160/70 99 06/06/17 21:15 78 16 97 06/06/17 21:04 70 06/06/17 21:00 30 06/06/17 20:33 75 14 98 06/06/17 16:57 75 16 99 30 06/06/17 16:10 67 06/06/17 15:37 98.0 67 14 115/56 98 06/06/17 15:17 80 20 99 30 06/06/17 13:17 71 17 99 30 06/06/17 12:03 73 06/06/17 11:20 70 10 99 30 06/06/17 11:20 30 06/06/17 11:14 97.5 76 15 112/58 100 06/06/17 10:20 78 20 06/06/17 10:20 79 06/06/17 09:50 76 06/06/17 09:20 90 06/06/17 09:00 80 16 100 100 06/06/17 08:50 90 06/06/17 08:30 30 06/06/17 08:20 88 06/06/17 08:16 76 06/06/17 07:50 83 06/06/17 07:47 97.5 76 14 106/59 99 06/06/17 07:42 77 14 98 30 06/06/17 07:20 80 06/06/17 07:20 80 18 06/06/17 05:38 79 14 99 30 06/06/17 04:42 97.4 74 18 112/60 96 06/06/17 04:19 72 06/06/17 03:18 81 13 99 30 06/06/17 01:08 77 13 99 30 06/06/17 00:33 72 06/05/17 23:53 97.6 71 19 112/57 98 06/05/17 22:52 82 15 100 30 06/05/17 21:23 68 14 100 30 06/05/17 21:00 30 06/05/17 20:26 69 06/05/17 19:38 97.6 70 18 106/60 100 06/05/17 19:17 70 13 100 30 06/05/17 17:40 84 14 99 30 06/05/17 17:30 30 06/05/17 17:16 97.7 91 17 103/63 99 06/05/17 17:10 89 16 06/05/17 17:10 89 06/05/17 16:40 84 06/05/17 16:12 86 06/05/17 16:10 89 06/05/17 15:40 84 06/05/17 15:20 84 12 100 100 06/05/17 15:10 80 06/05/17 14:40 82 06/05/17 14:10 80 17 8/24/17 14:10 80 06/05/17 13:28 97.9 78 12 96/52 99 06/05/17 13:00 88 12 100 100 06/05/17 12:59 30 06/05/17 12:00 80 Vital Signs Date Time Temp Pulse Resp B/P Pulse Ox O2 Delivery O2 Flow Rate FiO2 06/08/17 11:15 78 14 98 30 06/08/17 08:33 98.5 114/53 06/07/17 04:00 Mechanical Ventilator Intake and Output 06/07/17 06/07/17 06/08/17 15:00 23:00 07:00 Intake Total 700 ml 860 ml Output Total 3150 ml 3500 ml Balance -2450 ml -2640 ml Exam Constitutional: alert, frail Neck: other ((+) tracheostomy on vent) Respiratory: clear to auscultation, normal air movement Cardiovascular: edema (2+ BLE), nl pulses, regular rate and rhythm, No murmurs/extra sounds, No rub Gastrointestinal: bowel sounds, nl liver, spleen, non-tender, soft, No mass, No rebound or guarding Musculoskeletal: nl extremities to inspection Extremities: edema (2+ BLE), normal pulses, No clubbing, No cyanosis Neurological: [employer] II-XII intact Additional Comments Bedside Glucose - 72 Hours Test 06/05/17 14:15 06/05/17 17:25 06/06/17 01:08 06/06/17 05:54 Bedside Glucose 108mg/dL (70-220) 156mg/dL (70-220) 137mg/dL (70-220) 129mg/dL (70-220) Test 06/06/17 12:15 06/06/17 18:26 06/06/17 23:47 06/07/17 06:26 Bedside Glucose 157mg/dL (70-220) 137mg/dL (70-220) 110mg/dL (70-220) 130mg/dL (70-220) Test 06/07/17 12:16 06/07/17 17:38 06/07/17 23:34 06/08/17 05:13 Bedside Glucose 138mg/dL (70-220) 145mg/dL (70-220) 122mg/dL (70-220) 128mg/dL (70-220) Results Result Diagram: 06/08/17 0619 06/08/17 0619 Results 24 hrs Laboratory Tests Test 06/07/17 12:16 06/07/17 17:38 06/07/17 23:34 06/08/17 05:13 Bedside Glucose 138 145 122 128 Test 06/08/17 06:19 White Blood Count 14.9 #H Red Blood Count 3.52 L Hemoglobin 11.1 L Hematocrit 33.3 L Mean Corpuscular Volume 94.6 Mean Corpuscular Hemoglobin 31.5 Mean Corpuscular Hemoglobin Concent 33.3 Red Cell Distribution Width 18.5 H Platelet Count 266 Mean Platelet Volume 9.9 Neutrophils % Segmented Neutrophils % (Manual) 72 Lymphocytes % Lymphocytes % (Manual) 9 L Monocytes % Monocytes % (Manual) 12 H Eosinophils % Eosinophils % (Manual) 1 Basophils % Myelocytes % (Manual) 3 H Promyelocytes % (Manual) 2 H Plasma Cells % (manual) 1 Nucleated Red Blood Cells % 0.1 H Neutrophils # (Manual) Absolute Lymphocytes (Manual) 1.3 Lymphocytes # Monocytes # Absolute Monocytes (Manual) 1.7 H Eosinophils # Basophils # Myelocytes # 0.4 H Promyelocytes # 0 Plasma Cells # (manual) 0.1 H Nucleated Red Blood Cells # Platelet Morphology Comment @See below Sodium Level 140 Potassium Level 3.8 Chloride Level 96 L Carbon Dioxide Level 31 Anion Gap 17 H Blood Urea Nitrogen 54 H Creatinine 1.78 H Glucose Level 119 Calcium Level 9.1 Thyroid Stimulating Hormone (TSH) 57.100 H Free Thyroxine Index 1.50 Thyroxine (T4) 4.4 L Triiodothyronine (T3) Uptake 34.2 Medications Medications Current Medications Metoprolol Tartrate (Lopressor) 5 mg Q4H PRN IV HR>110 Hold SBP<110 Last administered on 04/20/17 17:36; Admin Dose 5 MG; Start 04/11/17 at 13:30 Miscellaneous Information 1 ea NOTE XX ; Start 04/11/17 at 16:30 Glucose (Glutose) 15 gm Q15M PRN PO DECREASED GLUCOSE Last administered on 05/07 03:27; Admin Dose 15 GM; Start 04/11/17 at 16:30 Glucose (Glutose) 22.5 gm Q15M PRN PO DECREASED GLUCOSE; Start 04/11/17 at 16: 30 Dextrose (D50w Syringe) 25 ml Q15M PRN IV DECREASED GLUCOSE Last administered on 04/12/17 23:56; Admin Dose 25 ML; Start 04/11/17 at 16:30 Dextrose (D50w Syringe) 50 ml Q15M PRN IV DECREASED GLUCOSE; Start 04/11/17 at 16:30 Glucagon (Glucagen) 1 mg Q15M PRN IM DECREASED GLUCOSE; Start 04/11/17 at 16:30 Glucose (Glutose) 15 gm Q15M PRN BUCCAL DECREASED GLUCOSE; Start 04/11/17 at 16 :30 Metoclopramide HCl (Reglan) 10 mg Q6 IV Last administered on 06/08/17 05:14; Admin Dose 10 MG; Start 04/12/17 at 18:00 Insulin Aspart (Novolog Insulin Pen) NOVOLOG *MILD* ALGORI... Q6H SC Last administered on 06/07/17 17:41; Admin Dose 1 UNIT; Start 04/15/17 at 00:00 IV Flush (NS 10 ml) 10 ml PRN PRN IV FLUSH LINE; Start 04/15/17 at 13:00 Amiodarone HCl (Cordarone) 200 mg BID GTB Last administered on 06/08/17 09:20 ; Admin Dose 200 MG; Start 04/16/17 at 13:00 Citalopram Hydrobromide (Celexa) 20 mg DAILY NGT Last administered on 09:22; Admin Dose 20 MG; Start 04/19/17 at 09:00 Hydralazine HCl (Apresoline) 20 mg Q6H PRN IV sbp ABOVE 160 Last administered on 06/03/17 04:17; Admin Dose 20 MG; Start 04/18/17 at 18:30 Chlorhexidine Gluconate (Peridex) 15 ml BID MT Last administered on 06/08/17 09:22; Admin Dose 15 ML; Start 04/22/17 at 21:00 Vitamin A/Vitamin D (Vitamin A & D Oint) 1 applic TID TOP Last administered on 06/08/17 09:22; Admin Dose 1 APPLIC; Start 04/22/17 at 21:00 Vitamin A/Vitamin D (Vitamin A & D Oint) 1 applic TID PRN TOP DRYNESS Last administered on 7/11/17at 15:29; Admin Dose 1 APPLIC; Start 04/22/17 at 15:00 Acetaminophen/ Hydrocodone Bitart ([place] (5/325)) 1 tab Q6H GTB Last administered on 06/08/17 09:24; Admin Dose 1 TAB; Start 04/22/17 at 21:30 Diltiazem HCl 5 mg 5 mg Q1H PRN IV HEART RATE GREATER THAN 120 Last administered on 04/29/17 06:17; Admin Dose 5 MG; Start 04/29/17 at 05:00 Sodium Chloride 1,000 ml @ 0 mls/hr Q0M IV Last administered on 05/01/17 03: 00; Admin Dose 1,000 MLS/HR; Start 05/01/17 at 03:00 Sodium Chloride 1,000 ml @ 0 mls/hr Q0M IV Last administered on 05/01/17 04: 00; Admin Dose 1,000 MLS/HR; Start 05/01/17 at 03:30 Diltiazem HCl (Cardizem-D5W 125 Mg/125 ml Drip) 125 ml @ 5 mls/hr TITRATE IV Last administered on 05/02/17 19:11; Admin Dose 5 MLS/HR; Start 05/02/17 at 19: 00 Metoprolol Tartrate (Lopressor) 25 mg QID GTB Last administered on 06/08/17 09 :21; Admin Dose 25 MG; Start 05/07/17 at 09:00 Vitamin B Complex/ Vitamin C (Berocca) 1 cap DAILY PO Last administered on 06/08 09:22; Admin Dose 1 CAP; Start 05/13/17 at 09:00 Aspirin (Aspirin) 81 mg DAILY NGT Last administered on 06/08/17 09:22; Admin Dose 81 MG; Start 05/19/17 at 09:00 Lansoprazole (Prevacid) 30 mg BID@,18 GTB Last administered on 06/08/17 05: 17; Admin Dose 30 MG; Start 05/20/17 at 18:00 Multivitamins (Multivitamin) 30 ml DAILY GTB Last administered on 06/08/17 09: 21; Admin Dose 30 ML; Start 05/24/17 at 09:00 Epoetin Perry (Epogen (Esrd)) 12,000 units TuThSa@17 SC Last administered on t 16:34; Admin Dose 12,000 UNITS; Start 06/05/17 at 17:00 Levothyroxine Sodium (Synthroid) 150 mcg DAILY@06 GTB ; Start 06/09/17 at 06:00 JEAN CISNEROS MD Jun 08, 2017 11:41
--- NOTE | 2017-06-08 13:15 | CONS ---
Date/Time of Note Date/Time of Note DATE: 06/08/17 TIME: 13:09 Assessment/Plan Assessment/Plan Chief Complaint/Hosp Course Assessment/Plan Chief Complaint/Hosp Course ID PROGRESS NOTE CURRENT ABX=>OFF ABX 24H INTERVAL SUMMARY/HOSPITAL COURSE * Awake. Alert. No Acute Distress. * Current in HD session via recent [place] PermCath 06/05/17 PHYSICAL EXAMINATION: GENERAL: 66 yo F, stable on the Vent HEENT: Atraumatic, (+)Lip lesions well healed == Facial edema is much better NECK: (+)Trach in place secure to VENT CHEST: Rise symmetrical w/coarse BS, scattered rales/rhonchi ABDOMEN: Soft, peg EXTREMITIES: Warm, moves extremities ID ASSESSMENT: 66 yo F w/PMHx tongue cancer, chronic trach re-admit H from SNF with: 1. s/p Acute severe sepsis/shock on admission w/(+)fever, tachycardia, lactic acidosis, leukocytosis, (+)troponin leak = RESOLVED * Leukocytosis persisting= MILD => IV Steroids onboard * Fungemia => repeat BCx negative * s/p 06/03 GNR Femoral Line sepsis => Line DC'd patient without evidence of current sepsis 2. Anasarca w/increased facial edema/bilateral lip edema w/resolution of HSV lip lesions => IMPROVED 3. Acute respiratory failure = recurrent issue s/p intubation x3rd episode w/ extubation, now with Trach secure to Vent 3. 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 Acute CHF w/elevated BNP 8000 in setting tachycardia, sepsis, pulmonary edema on CXR 5. s/p Nausea w/emesis on admission -> RESOLVED -- This has been recurrent issue , etiology of recurrent ASP PNA/Pulm Sepsis * Query: DM Autonomic Gastroparesis * GERD 6. Cholelithiasis w/dilated CBD->HIDA scan (+cholecystitis 04/12/17=> s/p Mansi Drain 04/17/17, no surgery per GI => Asymptomatic/Stable 7. Acute renal failure = started on HD 8. Dysphagia sp PEG placement 9. Paroxysmal Afib 10. NSTEMI in setting sepsis, tachycardia, acute hypoxic respiratory failure, acute CHF exacerbation 11. Elevated glucose - iatrogenic diabetes while on IV steroids 12. Leukocytosis = partial steroids demargination 13. Lip lesions => consistent w/herpes simplex virus outbreak -> HEALED 14. s/p GIB associates with Acute on chronic anemia secondary to AVM ==> stopped , status post EGD on May 02 with injection of epinephrine 15. Recent (+)C.Diff on 03/07/16 (treated) w/(-)C.Diff 03/20/17 => Monitor for recurrent (-) MRSA Nares screen (04/03/17) INVASIVES: Trach, PEG Latif, RIJ p-cath 06/05 ABX ALLERGY: Iodine CURRENT ABX=>OFF ABX She has completed a 10 day course for recurrent ASP PNA/sepsis s/p Flagyl, + Cefepime #10+ Colistin INH #10 => DC'd 05/19/17 Valtrex,-> DC 05/17 Cancidas -> DC 05/10 Merrem -> DC'd 05/08 She completed a 14 day course upon admission for ASP PNA was OFF ABX then re- aspirated * Merrem #14 total -> DC'd 04/26=> Restarted 05/08 ID PLAN=> 1. Monitor OFF Antibiotics. 2. Monitor Labs. Problems: Consultation Date/Type/Reason Admit Date/Time Apr 11, 2017 at 11:28 Initial Consult Date 05/01/17 Type of Consultation: id Referring Provider: NINA MACIEL DO Exam/Review of Systems Vital Signs Vitals Vital Signs Date Time Temp Pulse Resp B/P Pulse Ox O2 Delivery O2 Flow Rate FiO2 06/08/17 12:03 98.6 73 18 121/59 99 06/08/17 11:15 30 06/07/17 04:00 Mechanical Ventilator Intake and Output 06/07/17 06/07/17 06/08/17 14:59 22:59 06:59 Intake Total 700 ml 860 ml Output Total 3150 ml 3500 ml Balance -2450 ml -2640 ml Results Result Diagram: 8/27/17 0619 8/27/17 0619 Results 24 hrs Laboratory Tests Test 06/07/17 17:38 06/07/17 23:34 06/08/17 05:13 06/08/17 06:19 Bedside Glucose 145 122 128 White Blood Count 14.9 #H Red Blood Count 3.52 L Hemoglobin 11.1 L Hematocrit 33.3 L Mean Corpuscular Volume 94.6 Mean Corpuscular Hemoglobin 31.5 Mean Corpuscular Hemoglobin Concent 33.3 Red Cell Distribution Width 18.5 H Platelet Count 266 Mean Platelet Volume 9.9 Neutrophils % Segmented Neutrophils % (Manual) 72 Lymphocytes % Lymphocytes % (Manual) 9 L Monocytes % Monocytes % (Manual) 12 H Eosinophils % Eosinophils % (Manual) 1 Basophils % Myelocytes % (Manual) 3 H Promyelocytes % (Manual) 2 H Plasma Cells % (manual) 1 Nucleated Red Blood Cells % 0.1 H Neutrophils # (Manual) Absolute Lymphocytes (Manual) 1.3 Lymphocytes # Monocytes # Absolute Monocytes (Manual) 1.7 H Eosinophils # Basophils # Myelocytes # 0.4 H Promyelocytes # 0 Plasma Cells # (manual) 0.1 H Nucleated Red Blood Cells # Platelet Morphology Comment @See below Sodium Level 140 Potassium Level 3.8 Chloride Level 96 L Carbon Dioxide Level 31 Anion Gap 17 H Blood Urea Nitrogen 54 H Creatinine 1.78 H Glucose Level 119 Calcium Level 9.1 Thyroid Stimulating Hormone (TSH) 57.100 H Free Thyroxine Index 1.50 Thyroxine (T4) 4.4 L Triiodothyronine (T3) Uptake 34.2 Test 06/08/17 11:36 Bedside Glucose 140 Medications Medications Current Medications Metoprolol Tartrate (Lopressor) 5 mg Q4H PRN IV HR>110 Hold SBP<110 Last administered on 04/20/17 17:36; Admin Dose 5 MG; Start 04/11/17 at 13:30 Miscellaneous Information 1 ea NOTE XX ; Start 04/11/17 at 16:30 Glucose (Glutose) 15 gm Q15M PRN PO DECREASED GLUCOSE Last administered on 05/07 03:27; Admin Dose 15 GM; Start 04/11/17 at 16:30 Glucose (Glutose) 22.5 gm Q15M PRN PO DECREASED GLUCOSE; Start 04/11/17 at 16: 30 Dextrose (D50w Syringe) 25 ml Q15M PRN IV DECREASED GLUCOSE Last administered on 04/12/17 23:56; Admin Dose 25 ML; Start 04/11/17 at 16:30 Dextrose (D50w Syringe) 50 ml Q15M PRN IV DECREASED GLUCOSE; Start 04/11/17 at 16:30 Glucagon (Glucagen) 1 mg Q15M PRN IM DECREASED GLUCOSE; Start 04/11/17 at 16:30 Glucose (Glutose) 15 gm Q15M PRN BUCCAL DECREASED GLUCOSE; Start 04/11/17 at 16 :30 Metoclopramide HCl (Reglan) 10 mg Q6 IV Last administered on 06/08/17 05:14; Admin Dose 10 MG; Start 04/12/17 at 18:00 Insulin Aspart (Novolog Insulin Pen) NOVOLOG *MILD* ALGORI... Q6H SC Last administered on 06/07/17 17:41; Admin Dose 1 UNIT; Start 04/15/17 at 00:00 IV Flush (NS 10 ml) 10 ml PRN PRN IV FLUSH LINE; Start 04/15/17 at 13:00 Amiodarone HCl (Cordarone) 200 mg BID GTB Last administered on 06/08/17 09:20 ; Admin Dose 200 MG; Start 04/16/17 at 13:00 Citalopram Hydrobromide (Celexa) 20 mg DAILY NGT Last administered on 09:22; Admin Dose 20 MG; Start 04/19/17 at 09:00 Hydralazine HCl (Apresoline) 20 mg Q6H PRN IV sbp ABOVE 160 Last administered on 06/03/17 04:17; Admin Dose 20 MG; Start 04/18/17 at 18:30 Chlorhexidine Gluconate (Peridex) 15 ml BID MT Last administered on 06/08/17 09:22; Admin Dose 15 ML; Start 04/22/17 at 21:00 Vitamin A/Vitamin D (Vitamin A & D Oint) 1 applic TID TOP Last administered on 06/08/17 09:22; Admin Dose 1 APPLIC; Start 04/22/17 at 21:00 Vitamin A/Vitamin D (Vitamin A & D Oint) 1 applic TID PRN TOP DRYNESS Last administered on 04/22/17 15:29; Admin Dose 1 APPLIC; Start 04/22/17 at 15:00 Acetaminophen/ Hydrocodone Bitart ([place] (5/325)) 1 tab Q6H GTB Last administered on 06/08/17 09:24; Admin Dose 1 TAB; Start 04/22/17 at 21:30 Diltiazem HCl 5 mg 5 mg Q1H PRN IV HEART RATE GREATER THAN 120 Last administered on 04/29/17 06:17; Admin Dose 5 MG; Start 04/29/17 at 05:00 Sodium Chloride 1,000 ml @ 0 mls/hr Q0M IV Last administered on 05/01/17 03: 00; Admin Dose 1,000 MLS/HR; Start 05/01/17 at 03:00 Sodium Chloride 1,000 ml @ 0 mls/hr Q0M IV Last administered on 05/01/17 04: 00; Admin Dose 1,000 MLS/HR; Start 05/01/17 at 03:30 Diltiazem HCl (Cardizem-D5W 125 Mg/125 ml Drip) 125 ml @ 5 mls/hr TITRATE IV Last administered on 05/02/17 19:11; Admin Dose 5 MLS/HR; Start 05/02/17 at 19: 00 Metoprolol Tartrate (Lopressor) 25 mg QID GTB Last administered on 06/08/17 09 :21; Admin Dose 25 MG; Start 05/07/17 at 09:00 Vitamin B Complex/ Vitamin C (Berocca) 1 cap DAILY PO Last administered on 06/08 09:22; Admin Dose 1 CAP; Start 05/13/17 at 09:00 Aspirin (Aspirin) 81 mg DAILY NGT Last administered on 06/08/17 09:22; Admin Dose 81 MG; Start 05/19/17 at 09:00 Lansoprazole (Prevacid) 30 mg BID@06,18 GTB Last administered on 06/08/17 05: 17; Admin Dose 30 MG; Start 05/20/17 at 18:00 Multivitamins (Multivitamin) 30 ml DAILY GTB Last administered on 06/08/17 09: 21; Admin Dose 30 ML; Start 05/24/17 at 09:00 Epoetin Perry (Epogen (Esrd)) 12,000 units TuThSa@17 SC Last administered on 16:34; Admin Dose 12,000 UNITS; Start 06/05/17 at 17:00 Levothyroxine Sodium (Synthroid) 150 mcg DAILY@06 GTB ; Start 06/09/17 at 06:00 DOUG GARCES NP Jun 08, 2017 13:15
--- NOTE | 2017-06-08 14:00 | CONS ---
Date/Time of Note Date/Time of Note DATE: 06/08/17 TIME: 13:59 Consult Date/Type/Reason Admit Date/Time Apr 11, 2017 at 11:28 Initial Consult Date 04/12/17 Type of Consultation: cardiology Ordering Provider: NINA MACIEL DO Subjective CARDIOLOGY FOLLOW UP NOTE: D/W staff and rhythm was reviewed. pt remains in NSR. no afib overnight no chest pain or pressure or palpitations. pt still s/p trach on vent on tele. s/p transfusion on 05/14/17 and getting transfused again 05/26/17 getting transfusion 06/06/17 Objective: General: s/p trach on vent HEENT: NC/AT. . oropharynx with multiple lesions. . NECK: NO JVD. no stridor. s/p trach on vent CV: RRR. systolic ejection murmur; no gallop or rubs. PULM: + mild rhonchi. no wheezes. GI: SOFT, NT, ND, no rebound or guarding s/p PEG Extremity: 2-3+ B/L LE edema. no clubbing. neuro: sleeping comfortably . Psych: calm rectal: deferred Derm: multiple echymosis chest: s/p right chest HD access in place. Objective Vital Signs Date Time Temp Pulse Resp B/P Pulse Ox O2 Delivery O2 Flow Rate FiO2 06/08/17 13:05 78 14 97 30 06/08/17 12:03 98.6 121/59 06/07/17 04:00 Mechanical Ventilator Intake and Output 06/07/17 06/07/17 06/08/17 15:00 23:00 07:00 Intake Total 700 ml 860 ml Output Total 3150 ml 3500 ml Balance -2450 ml -2640 ml Results/Medications Result Diagram: 06/08/17 0619 06/08/17 0619 Results 24 hrs Laboratory Tests Test 06/07/17 17:38 06/07/17 23:34 06/08/17 05:13 06/08/17 06:19 Bedside Glucose 145 122 128 White Blood Count 14.9 #H Red Blood Count 3.52 L Hemoglobin 11.1 L Hematocrit 33.3 L Mean Corpuscular Volume 94.6 Mean Corpuscular Hemoglobin 31.5 Mean Corpuscular Hemoglobin Concent 33.3 Red Cell Distribution Width 18.5 H Platelet Count 266 Mean Platelet Volume 9.9 Neutrophils % Segmented Neutrophils % (Manual) 72 Lymphocytes % Lymphocytes % (Manual) 9 L Monocytes % Monocytes % (Manual) 12 H Eosinophils % Eosinophils % (Manual) 1 Basophils % Myelocytes % (Manual) 3 H Promyelocytes % (Manual) 2 H Plasma Cells % (manual) 1 Nucleated Red Blood Cells % 0.1 H Neutrophils # (Manual) Absolute Lymphocytes (Manual) 1.3 Lymphocytes # Monocytes # Absolute Monocytes (Manual) 1.7 H Eosinophils # Basophils # Myelocytes # 0.4 H Promyelocytes # 0 Plasma Cells # (manual) 0.1 H Nucleated Red Blood Cells # Platelet Morphology Comment @See below Sodium Level 140 Potassium Level 3.8 Chloride Level 96 L Carbon Dioxide Level 31 Anion Gap 17 H Blood Urea Nitrogen 54 H Creatinine 1.78 H Glucose Level 119 Calcium Level 9.1 Thyroid Stimulating Hormone (TSH) 57.100 H Free Thyroxine Index 1.50 Thyroxine (T4) 4.4 L Triiodothyronine (T3) Uptake 34.2 Test 06/08/17 11:36 Bedside Glucose 140 Medications Current Medications Metoprolol Tartrate (Lopressor) 5 mg Q4H PRN IV HR>110 Hold SBP<110 Last administered on 04/20/17 17:36; Admin Dose 5 MG; Start 04/11/17 at 13:30 Miscellaneous Information 1 ea NOTE XX ; Start 04/11/17 at 16:30 Glucose (Glutose) 15 gm Q15M PRN PO DECREASED GLUCOSE Last administered on 05/07 03:27; Admin Dose 15 GM; Start 04/11/17 at 16:30 Glucose (Glutose) 22.5 gm Q15M PRN PO DECREASED GLUCOSE; Start 04/11/17 at 16: 30 Dextrose (D50w Syringe) 25 ml Q15M PRN IV DECREASED GLUCOSE Last administered on 04/12/17 23:56; Admin Dose 25 ML; Start 04/11/17 at 16:30 Dextrose (D50w Syringe) 50 ml Q15M PRN IV DECREASED GLUCOSE; Start 04/11/17 at 16:30 Glucagon (Glucagen) 1 mg Q15M PRN IM DECREASED GLUCOSE; Start 04/11/17 at 16:30 Glucose (Glutose) 15 gm Q15M PRN BUCCAL DECREASED GLUCOSE; Start 04/11/17 at 16 :30 Metoclopramide HCl (Reglan) 10 mg Q6 IV Last administered on 06/08/17 13:00; Admin Dose 10 MG; Start 04/12/17 at 18:00 Insulin Aspart (Novolog Insulin Pen) NOVOLOG *MILD* ALGORI... Q6H SC Last administered on 06/07/17 17:41; Admin Dose 1 UNIT; Start 04/15/17 at 00:00 IV Flush (NS 10 ml) 10 ml PRN PRN IV FLUSH LINE; Start 04/15/17 at 13:00 Amiodarone HCl (Cordarone) 200 mg BID GTB Last administered on 06/08/17 09:20 ; Admin Dose 200 MG; Start 04/16/17 at 13:00 Citalopram Hydrobromide (Celexa) 20 mg DAILY NGT Last administered on 09:22; Admin Dose 20 MG; Start 04/19/17 at 09:00 Hydralazine HCl (Apresoline) 20 mg Q6H PRN IV sbp ABOVE 160 Last administered on 06/03/17 04:17; Admin Dose 20 MG; Start 04/18/17 at 18:30 Chlorhexidine Gluconate (Peridex) 15 ml BID MT Last administered on 06/08/17 09:22; Admin Dose 15 ML; Start 04/22/17 at 21:00 Vitamin A/Vitamin D (Vitamin A & D Oint) 1 applic TID TOP Last administered on 06/08/17 13:01; Admin Dose 1 APPLIC; Start 04/22/17 at 21:00 Vitamin A/Vitamin D (Vitamin A & D Oint) 1 applic TID PRN TOP DRYNESS Last administered on 04/22/17 15:29; Admin Dose 1 APPLIC; Start 04/22/17 at 15:00 Acetaminophen/ Hydrocodone Bitart ([place] (5/325)) 1 tab Q6H GTB Last administered on 06/08/17 09:24; Admin Dose 1 TAB; Start 04/22/17 at 21:30 Diltiazem HCl 5 mg 5 mg Q1H PRN IV HEART RATE GREATER THAN 120 Last administered on 04/29/17 06:17; Admin Dose 5 MG; Start 04/29/17 at 05:00 Sodium Chloride 1,000 ml @ 0 mls/hr Q0M IV Last administered on 05/01/17 03: 00; Admin Dose 1,000 MLS/HR; Start 05/01/17 at 03:00 Sodium Chloride 1,000 ml @ 0 mls/hr Q0M IV Last administered on 05/01/17 04: 00; Admin Dose 1,000 MLS/HR; Start 05/01/17 at 03:30 Diltiazem HCl (Cardizem-D5W 125 Mg/125 ml Drip) 125 ml @ 5 mls/hr TITRATE IV Last administered on 05/02/17 19:11; Admin Dose 5 MLS/HR; Start 05/02/17 at 19: 00 Metoprolol Tartrate (Lopressor) 25 mg QID GTB Last administered on 06/08/17 13 :01; Admin Dose 25 MG; Start 05/07/17 at 09:00 Vitamin B Complex/ Vitamin C (Berocca) 1 cap DAILY PO Last administered on 06/08 09:22; Admin Dose 1 CAP; Start 05/13/17 at 09:00 Aspirin (Aspirin) 81 mg DAILY NGT Last administered on 06/08/17 09:22; Admin Dose 81 MG; Start 05/19/17 at 09:00 Lansoprazole (Prevacid) 30 mg BID@06,18 GTB Last administered on 06/08/17 05: 17; Admin Dose 30 MG; Start 05/20/17 at 18:00 Multivitamins (Multivitamin) 30 ml DAILY GTB Last administered on 06/08/17 09: 21; Admin Dose 30 ML; Start 05/24/17 at 09:00 Epoetin Perry (Epogen (Esrd)) 12,000 units TuThSa@17 SC Last administered on 16:34; Admin Dose 12,000 UNITS; Start 06/05/17 at 17:00 Levothyroxine Sodium (Synthroid) 150 mcg DAILY@06 GTB ; Start 06/09/17 at 06:00 Assessment/Plan Chief Complaint/Hosp Course 1. acute on chronic hypoxemic respiratory failure: 2. S/P NSTEMI: due to demand ischemia. 3. CHF/ fluid overload: due to diastolic heart failure and renal failure 4. moderate 5. Arrhythmia and P afib, frequent PVC: currently in NSR. 6. ANEMIA: s/p multiple transfusion 7. s/p pneumonia, . 8. s/p sepsis and shock: BP is stable now. 9. Anasarca 10. s/p cardiopulm arrest due to resp failure 11. renal failure 12. coagulopathy; resolved now. Rec: cont resp care and vent support as per PULM Team. correct lytes prn. CONT betablocker as tolerated. . cont thyroid supplement . cont tele monitoring HD/ ultrafiltration as per renal. s/p HD on 06/05/17 & 06/06, 06/07 transfuse prn, currently H/H has improved. cont low dose ASA 81 mg only due to recurrent anemia. THANK YOU. Problems: FRANCISCO BLACKWODO MD Jun 08, 2017 14:00
--- NOTE | 2017-06-08 16:19 | PN ---
Date/Time of Note Date/Time of Note DATE: 06/08/17 TIME: 16:14 Assessment/Plan Lines/Catheters IV Catheter Type (from [facility]): PERMA CATH Mims in Place (from [facility]): Yes Assessment/Plan Chief Complaint/Hosp Course 1. Cholelithiasis: Tolerating tube feeds; no abdominal pain/discomfort/bloating ; +bowel function -No surgical intervention required at this time 2. Pneumonia: Recurrent +sputum cultures; appears comfortable, no fevers, s/p abx; CXR: with nodule-possible aspirated tooth; ct chest: no foreign body -pulmonary toilet -wean as tolerated 3. Vent dependent respiratory failure: 2/2 aspiration PNA+ CHF;reintubated and extubated, coded 04/21 and 05/01; comfortable on vent -as above 4. KEYONNA: likely 2/2 septic shock; with + urine output; arranging for outpatient HD -judicious fluid management -avoid nephrotoxic agents 5. Uncontrolled Afib: s/p amiodarone drip, on oral amiodarone; episodes of Afib Now SR -medical optimization 6. Leukocytosis with lactic acidosis: 2/2 pneumonia +/- steroids vs.fungemia vs other (urine, repeat blood cultures negative); labile -per ID 7. Macrocytic anemia: chronic vs. dilutional vs. acute bleed vs. b12/folate deficiency; hh stable -monitor -Transfuse as needed 8. Electrolyte imbalance: (hyponatremia, hypokalemia); improved -electrolyte optimization 9. CHF: BNP elevated -judicious fluid management -medical optimization 10. Adrenal Insufficiency -solucortef 11. Hypothyroidism; tsh elevated -on synthroid; adjust per endocrinology 12. Hypoalbuminemia: 2/2 malnutrition +/- inflammation; decreased; tolerating tf ; -nutrition optimization -as above 13. Hypocalcemia with hypoalbuminemia -optimize nutrition 14. Bilateral upper and lower extremity edema: hx(+) Thrombus in upper arm; lower leg pain, doppler (-) -elevate extremities -supportive Patient seen and examined in collaboration with Dr. Justus Antonio. Thank you Problems: Subjective 24 Hr Interval Summary Leukocytosis but no fevers. Comfortable on vent. Pending HD today. No chills, cp , palpitations, sob, cough, n/v/d/dysuria. Tolerating tf with +bowel function and no abdominal pain. Exam/Review of Systems Vital Signs Vitals Vital Signs Date Time Temp Pulse Resp B/P Pulse Ox O2 Delivery O2 Flow Rate FiO2 06/08/17 15:31 98.6 72 18 121/62 97 06/08/17 15:10 30 06/07/17 04:00 Mechanical Ventilator Intake and Output 06/07/17 06/07/17 06/08/17 14:59 22:59 06:59 Intake Total 700 ml 860 ml Output Total 3150 ml 3500 ml Balance -2450 ml -2640 ml Exam Free Text/Dictation Constitutional: fully awake, alert pleasant Head: atraumatic, normocephalic Eyes: PERRL, nl lids, nl sclera; ENMT: No mucosa pink and moist (pink and moist with healed perioral lesions), tooth missing, Neck: non-tender, supple, tracheostomy Respiratory: diminished, comfortable on vent, min sputum Cardiovascular: nl pulses, regular rate and rhythm, Gastrointestinal: non distended, GT tubes site no erythema, no drainage, non tenderness, bowel sounds x 4 quads, soft; tf ongoing Genitourinary - Female: nl external genitalia; mims with yellow output with sediments Musculoskeletal: nl extremities to inspection Extremities: normal pulses, bilateral upper/lower extremity edema 1+; improved extremity edema Neurological: responsive Skin: nl turgor, No rash or lesions Lymph: nl lymph node Results Result Diagram: 06/08/17 0619 06/08/17 0619 ADDISON FREGOSO NP Jun 08, 2017 16:18
--- NOTE | 2017-06-08 19:28 | CONS ---
Date/Time of Note Date/Time of Note DATE: 06/08/17 TIME: 19:27 Consult Date/Type/Reason Admit Date/Time Apr 11, 2017 at 11:28 Initial Consult Date 04/12/17 Type of Consultation: Pulm Ordering Provider: NINA MACIEL DO Subjective No events Objective Vital Signs Date Time Temp Pulse Resp B/P Pulse Ox O2 Delivery O2 Flow Rate FiO2 06/08/17 17:15 80 21 98 30 06/08/17 15:31 98.6 121/62 06/07/17 04:00 Mechanical Ventilator Intake and Output 06/07/17 06/07/17 06/08/17 15:00 23:00 07:00 Intake Total 700 ml 860 ml Output Total 3150 ml 3500 ml Balance -2450 ml -2640 ml Exam HEENT: Neck supple; no JVD; no LAD; + trach CVS: RRR, S1 and S2 CHEST: Coarse BS ABD: Soft, NT, + BS EXT: No c/c/ + edema Results/Medications Result Diagram: 06/08/17 0619 06/08/17 0619 Results 24 hrs Laboratory Tests Test 06/07/17 23:34 06/08/17 05:13 06/08/17 06:19 06/08/17 11:36 Bedside Glucose 122 128 140 White Blood Count 14.9 #H Red Blood Count 3.52 L Hemoglobin 11.1 L Hematocrit 33.3 L Mean Corpuscular Volume 94.6 Mean Corpuscular Hemoglobin 31.5 Mean Corpuscular Hemoglobin Concent 33.3 Red Cell Distribution Width 18.5 H Platelet Count 266 Mean Platelet Volume 9.9 Neutrophils % Segmented Neutrophils % (Manual) 72 Lymphocytes % Lymphocytes % (Manual) 9 L Monocytes % Monocytes % (Manual) 12 H Eosinophils % Eosinophils % (Manual) 1 Basophils % Myelocytes % (Manual) 3 H Promyelocytes % (Manual) 2 H Plasma Cells % (manual) 1 Nucleated Red Blood Cells % 0.1 H Neutrophils # (Manual) Absolute Lymphocytes (Manual) 1.3 Lymphocytes # Monocytes # Absolute Monocytes (Manual) 1.7 H Eosinophils # Basophils # Myelocytes # 0.4 H Promyelocytes # 0 Plasma Cells # (manual) 0.1 H Nucleated Red Blood Cells # Platelet Morphology Comment @See below Sodium Level 140 Potassium Level 3.8 Chloride Level 96 L Carbon Dioxide Level 31 Anion Gap 17 H Blood Urea Nitrogen 54 H Creatinine 1.78 H Glucose Level 119 Calcium Level 9.1 Thyroid Stimulating Hormone (TSH) 57.100 H Free Thyroxine Index 1.50 Thyroxine (T4) 4.4 L Triiodothyronine (T3) Uptake 34.2 Test 06/08/17 17:43 Bedside Glucose 127 Medications Current Medications Metoprolol Tartrate (Lopressor) 5 mg Q4H PRN IV HR>110 Hold SBP<110 Last administered on 04/20/17 17:36; Admin Dose 5 MG; Start 04/11/17 at 13:30 Miscellaneous Information 1 ea NOTE XX ; Start 04/11/17 at 16:30 Glucose (Glutose) 15 gm Q15M PRN PO DECREASED GLUCOSE Last administered on 05/07 03:27; Admin Dose 15 GM; Start 04/11/17 at 16:30 Glucose (Glutose) 22.5 gm Q15M PRN PO DECREASED GLUCOSE; Start 04/11/17 at 16: 30 Dextrose (D50w Syringe) 25 ml Q15M PRN IV DECREASED GLUCOSE Last administered on 04/12/17 23:56; Admin Dose 25 ML; Start 04/11/17 at 16:30 Dextrose (D50w Syringe) 50 ml Q15M PRN IV DECREASED GLUCOSE; Start 04/11/17 at 16:30 Glucagon (Glucagen) 1 mg Q15M PRN IM DECREASED GLUCOSE; Start 04/11/17 at 16:30 Glucose (Glutose) 15 gm Q15M PRN BUCCAL DECREASED GLUCOSE; Start 04/11/17 at 16 :30 Metoclopramide HCl (Reglan) 10 mg Q6 IV Last administered on 06/08/17 17:32; Admin Dose 10 MG; Start 04/12/17 at 18:00 Insulin Aspart (Novolog Insulin Pen) NOVOLOG *MILD* ALGORI... Q6H SC Last administered on 06/07/17 17:41; Admin Dose 1 UNIT; Start 04/15/17 at 00:00 IV Flush (NS 10 ml) 10 ml PRN PRN IV FLUSH LINE; Start 04/15/17 at 13:00 Amiodarone HCl (Cordarone) 200 mg BID GTB Last administered on 06/08/17 09:20 ; Admin Dose 200 MG; Start 04/16/17 at 13:00 Citalopram Hydrobromide (Celexa) 20 mg DAILY NGT Last administered on 09:22; Admin Dose 20 MG; Start 04/19/17 at 09:00 Hydralazine HCl (Apresoline) 20 mg Q6H PRN IV sbp ABOVE 160 Last administered on 06/03/17 04:17; Admin Dose 20 MG; Start 04/18/17 at 18:30 Chlorhexidine Gluconate (Peridex) 15 ml BID MT Last administered on 06/08/17 09:22; Admin Dose 15 ML; Start 04/22/17 at 21:00 Vitamin A/Vitamin D (Vitamin A & D Oint) 1 applic TID TOP Last administered on 06/08/17 13:01; Admin Dose 1 APPLIC; Start 04/22/17 at 21:00 Vitamin A/Vitamin D (Vitamin A & D Oint) 1 applic TID PRN TOP DRYNESS Last administered on 04/22/17 15:29; Admin Dose 1 APPLIC; Start 04/22/17 at 15:00 Acetaminophen/ Hydrocodone Bitart ([place] (5/325)) 1 tab Q6H GTB Last administered on 06/08/17 15:57; Admin Dose 1 TAB; Start 04/22/17 at 21:30 Diltiazem HCl 5 mg 5 mg Q1H PRN IV HEART RATE GREATER THAN 120 Last administered on 04/29/17 06:17; Admin Dose 5 MG; Start 04/29/17 at 05:00 Sodium Chloride 1,000 ml @ 0 mls/hr Q0M IV Last administered on 05/01/17 03: 00; Admin Dose 1,000 MLS/HR; Start 05/01/17 at 03:00 Sodium Chloride 1,000 ml @ 0 mls/hr Q0M IV Last administered on 05/01/17 04: 00; Admin Dose 1,000 MLS/HR; Start 05/01/17 at 03:30 Diltiazem HCl (Cardizem-D5W 125 Mg/125 ml Drip) 125 ml @ 5 mls/hr TITRATE IV Last administered on 05/02/17 19:11; Admin Dose 5 MLS/HR; Start 05/02/17 at 19: 00 Metoprolol Tartrate (Lopressor) 25 mg QID GTB Last administered on 06/08/17 17 :32; Admin Dose 25 MG; Start 05/07/17 at 09:00 Vitamin B Complex/ Vitamin C (Berocca) 1 cap DAILY PO Last administered on 06/08 09:22; Admin Dose 1 CAP; Start 05/13/17 at 09:00 Aspirin (Aspirin) 81 mg DAILY NGT Last administered on 06/08/17 09:22; Admin Dose 81 MG; Start 05/19/17 at 09:00 Lansoprazole (Prevacid) 30 mg BID@06,18 GTB Last administered on 06/08/17 17: 32; Admin Dose 30 MG; Start 05/20/17 at 18:00 Multivitamins (Multivitamin) 30 ml DAILY GTB Last administered on 06/08/17 09: 21; Admin Dose 30 ML; Start 05/24/17 at 09:00 Epoetin Perry (Epogen (Esrd)) 12,000 units TuThSa@17 SC Last administered on 16:34; Admin Dose 12,000 UNITS; Start 06/05/17 at 17:00 Levothyroxine Sodium (Synthroid) 150 mcg DAILY@06 GTB ; Start 06/09/17 at 06:00 Assessment/Plan Chief Complaint/Hosp Course Briefly, this is a 66-year-old female with a history of chronic resp failure s/ p prolonged hospitalization and trach, recently decannulated ~ 3 weeks ago, dysphagia s/p PEG, [facility] with severe septic shock [facility] Problems: Additional Assessment/Plan IMP: 1. VDRF 2. h/o tracheomalacia 3. KEYONNA 4. Encephalopathy 5. s/p sepsis 6. Adrenal insuff RECS: 1. SIMV with PS 2. BDs MAUREEN COREA MD Jun 08, 2017 19:28
[2017-06-09] VITALS (28 sets, daily range): BP systolic 109–144; BP diastolic 51–75; PULSE 67–81; RESP 11–18
[2017-06-09] MEDS: LEVALBUTEROL (HFA) 15 GM INHALER INH SCH ×4 (01:09→19:35)
[2017-06-09] MEDS: HYDROCODONE/APAP (5/325) TAB GTB SCH ×4 (02:40→21:19)
[2017-06-09] MEDS: LEVOTHYROXINE 150 MCG TAB GTB SCH (05:20)
[2017-06-09] MEDS: METOCLOPRAMIDE 10 MG INJ IV SCH ×3 (05:21→18:13)
[2017-06-09] MEDS: LANSOPRAZOLE 30 MG CAP GTB SCH ×2 (05:21→18:13)
[2017-06-09] MEDS: INSULIN ASPART [NOVOLOG] 3 ML PEN SC SCH ×3 (05:31→18:00)
[2017-06-09 07:06] LABS: ABNORMAL IP MESSAGE 1; HEMATOCRIT 31.4 % (37.0-47.0); HEMOGLOBIN 10.1 g/dl (12.0-16.0); MEAN CORPUSCULAR HEMOGLOBIN 31.2 pg (29.0-33.0); MEAN CORPUSCULAR HGB CONC 32.2 g/dl (32.0-37.0); MEAN CORPUSCULAR VOLUME 96.9 fl (82.0-101.0); MEAN PLATELET VOLUME 10.1 fl (7.4-10.4); PLATELET COUNT 257 10^3/UL (140-415); RED BLOOD COUNT 3.24 10^6/ul (4.20-5.40); RED CELL DISTRIBUTION WIDTH 18.5 % (11.5-14.5); WHITE BLOOD COUNT 11.8 10^3/ul (4.8-10.8)
[2017-06-09 07:15] LABS: POSITIVE DIFF @See below
[2017-06-09 07:25] LABS: CALCIUM 8.7 mg/dl (8.4-10.2); CREATININE 1.81 mg/dl (0.44-1.00); MAGNESIUM 2.6 mg/dl (1.7-2.5); PHOSPHORUS 3.1 mg/dl (2.5-4.9); POTASSIUM 3.3 mmol/L (3.5-5.1)
[2017-06-09] MEDS ORDERED: POTASSIUM CHLORIDE 20 MEQ POWDER FOR ORAL SOLN GTB ONE (09:00)
[2017-06-09] MEDS: CITALOPRAM 20 MG TAB NGT SCH (09:15)
[2017-06-09] MEDS: ASPIRIN 81 MG TAB NGT SCH (09:15)
[2017-06-09] MEDS: MULTIVITAMINS 30 ML CUP GTB SCH (09:19)
[2017-06-09] MEDS: METOPROLOL 25 MG TAB GTB SCH ×4 (09:19→21:18)
[2017-06-09] MEDS: VITAMIN B COMPLEX/VIT C CAP PO SCH (09:20)
[2017-06-09] MEDS: AMIODARONE 200 MG TAB GTB SCH ×2 (09:20→21:17)
[2017-06-09] MEDS: CHLORHEXIDINE GLUCONATE 15 ML UD CUP MT SCH ×2 (09:20→21:18)
[2017-06-09] MEDS: VITAMIN A & D 5 GM OINT PACKET TOP SCH ×3 (09:21→21:18)
[2017-06-09 09:57] LABS: ANISOCYTOSIS 1+ (0-0); BASOPHILS % (M) 1 % (0-2); EOSINOPHILS % (M) 1 % (0-7); MICROCYTOSIS 1+ (0-0); MONOCYTES % (M) 4 % (0-11); MYELOCYTES % (M) 8 % (0-0); PLATELET ESTIMATE NORMAL; POLYCHROMASIA 3+ (0-0); PROMYELOCYTES #M 0 10^3/ul (0-0); PROMYELOCYTES % (M) 2 % (0-0); REACTIVE LYMPHOCYTES% (M) 2 % (0-0)
--- NOTE | 2017-06-09 10:27 | PN ---
Date/Time of Note Date/Time of Note DATE: 06/09/17 TIME: 10:20 Assessment/Plan Lines/Catheters IV Catheter Type (from [facility]): perm-a-cath Mims in Place (from [facility]): Yes Assessment/Plan Chief Complaint/Hosp Course 1. Cholelithiasis: Tolerating tube feeds; no abdominal pain/discomfort/bloating ; +bowel function -No surgical intervention required at this time 2. Pneumonia: Recurrent +sputum cultures; appears comfortable, no fevers, s/p abx; CXR: with nodule-possible aspirated tooth; ct chest: no foreign body -pulmonary toilet -wean as tolerated 3. Vent dependent respiratory failure: 2/2 aspiration PNA+ CHF;reintubated and extubated, coded 04/21 and 05/01; comfortable on vent -as above 4. KEYONNA: likely 2/2 septic shock; with + urine output; arranging for outpatient HD -judicious fluid management -avoid nephrotoxic agents 5. Uncontrolled Afib: s/p amiodarone drip, on oral amiodarone; episodes of Afib Now SR -medical optimization 6. Leukocytosis with lactic acidosis: 2/2 pneumonia +/- steroids vs.fungemia vs other (urine, repeat blood cultures negative); labile -per ID 7. Macrocytic anemia: chronic vs. dilutional vs. acute bleed vs. b12/folate deficiency; hh stable -monitor -Transfuse as needed 8. Electrolyte imbalance: (hyponatremia, hypokalemia); improved -electrolyte optimization 9. CHF: BNP elevated -judicious fluid management -medical optimization 10. Adrenal Insufficiency -solucortef 11. Hypothyroidism; tsh elevated -on synthroid; adjust per endocrinology 12. Hypoalbuminemia: 2/2 malnutrition +/- inflammation; decreased; tolerating tf ; -nutrition optimization -as above 13. Groin culture: cultures noted -abx per sensitivity 14. Bilateral upper and lower extremity edema: hx(+) Thrombus in upper arm; lower leg pain, doppler (-) -elevate extremities -supportive Patient seen and examined in collaboration with Dr. Justus Antonio. Thank you Problems: Subjective 24 Hr Interval Summary Sleepy today. HD yesterday; tolerated well. +uop. No sob, congested cough, cp, palpitations, n/v/d/dysuria, metzger, sz, rash. Comfortable on vent. Weaning continued as tolerated. Exam/Review of Systems Vital Signs Vitals Vital Signs Date Time Temp Pulse Resp B/P Pulse Ox O2 Delivery O2 Flow Rate FiO2 06/09/17 07:00 76 06/09/17 07:00 18 06/09/17 05:00 100 30 06/09/17 04:18 97.6 142/61 06/07/17 04:00 Mechanical Ventilator Intake and Output 06/08/17 06/08/17 06/09/17 15:00 23:00 07:00 Intake Total 360 ml 860 ml Output Total 350 ml 3750 ml Balance 10 ml -2890 ml Exam Free Text/Dictation Constitutional: fully awake, alert pleasant Head: atraumatic, normocephalic Eyes: PERRL, nl lids, nl sclera; ENMT: No mucosa pink and moist (pink and moist with healed perioral lesions), tooth missing, Neck: non-tender, supple, tracheostomy Respiratory: diminished, comfortable on vent, min sputum Cardiovascular: nl pulses, regular rate and rhythm, Gastrointestinal: non distended, GT tubes site no erythema, no drainage, non tenderness, bowel sounds x 4 quads, soft; tf ongoing Genitourinary - Female: nl external genitalia; +uop per mims with yellow output with sediments Musculoskeletal: nl extremities to inspection Extremities: normal pulses, bilateral upper/lower extremity edema 1+; improved extremity edema Neurological: responsive Skin: nl turgor, No rash or lesions Lymph: nl lymph node Results Result Diagram: 06/09/17 0547 06/09/17 0547 ADDISON FREGOSO NP Jun 09, 2017 10:27
--- NOTE | 2017-06-09 10:51 | CONS ---
Date/Time of Note Date/Time of Note DATE: 06/09/17 TIME: 10:47 Assessment/Plan Assessment/Plan Additional Assessment/Plan Ventilator setting; CPAP mode, pressure support 10. 30% FiO2. Assessment and recommendations; 1. Patient admitted with severe sepsis off antibiotics now. 2. Chronic respiratory failure. Patient doing very well on CPAP mode. 3. Remote history of glossal cancer, status post redo tracheostomy 2. 4. COPD. 5. History of hypertension and hypothyroidism. 6. Severe generalized deconditioning. 7. Anemia. 8. Renal failure. Continue current treatment. Patient can be transferred to a rehab center. Detailed discussion patient's at bedside and answered all his questions. Consultation Date/Type/Reason Admit Date/Time Apr 11, 2017 at 11:28 Initial Consult Date 05/01/17 Type of Consultation: Pulm Referring Provider: NINA MACIEL DO 24 HR Interval Summary Free Text/Dictation Patient condition remains stable. Patient is tolerating CPAP mode very well. Has remained hemodynamically stable. General exam; elderly woman, on ventilator via tracheostomy, currently in no distress. Exam/Review of Systems Vital Signs Vitals Vital Signs Date Time Temp Pulse Resp B/P Pulse Ox O2 Delivery O2 Flow Rate FiO2 06/09/17 08:04 68 06/09/17 07:00 18 06/09/17 05:00 100 30 06/09/17 04:18 97.6 142/61 06/07/17 04:00 Mechanical Ventilator Intake and Output 06/08/17 06/08/17 06/09/17 15:00 23:00 07:00 Intake Total 360 ml 860 ml Output Total 350 ml 3750 ml Balance 10 ml -2890 ml Exam HEENT exam; supple neck, no JVD. No lymphadenopathy. Midline trachea. No thyromegaly. Tracheostomy in place. Patient has fair dentition. Chest exam; clear to auscultation. S1-S2 audible, no murmurs. Regular rhythm. Abdomen exam; soft, G-tube in place. Nondistended. No organomegaly. Bowel sounds audible. Extremity exam; 2+ pitting edema lower extremities bilaterally. Trace peripheral edema involving complexes bilaterally. [employer] exam; patient is currently sleeping. Results Result Diagram: 06/09/17 0547 06/09/17 0547 Results 24 hrs Laboratory Tests Test 06/08/17 11:36 06/08/17 17:43 06/08/17 23:30 06/09/17 05:23 Bedside Glucose 140 127 151 144 Test 06/09/17 05:47 White Blood Count 11.8 #H Red Blood Count 3.24 L Hemoglobin 10.1 L Hematocrit 31.4 L Mean Corpuscular Volume 96.9 Mean Corpuscular Hemoglobin 31.2 Mean Corpuscular Hemoglobin Concent 32.2 Red Cell Distribution Width 18.5 H Platelet Count 257 Mean Platelet Volume 10.1 Neutrophils % Segmented Neutrophils % (Manual) 73 Band Neutrophils % (Manual) 4 Lymphocytes % Lymphocytes % (Manual) 5 L Reactive Lymphocytes % (Manual) 2 H Monocytes % Monocytes % (Manual) 4 Eosinophils % Eosinophils % (Manual) 1 Basophils % Basophils % (Manual) 1 Myelocytes % (Manual) 8 H Promyelocytes % (Manual) 2 H Nucleated Red Blood Cells % 0.0 Neutrophils # (Manual) 8.7 H Band Neutrophils # 0.4 Absolute Lymphocytes (Manual) 0.5 L Lymphocytes # Reactive Lymphocytes # 0.2 H Monocytes # Absolute Monocytes (Manual) 0.4 Eosinophils # Basophils # Basophils # (Manual) 0.1 H Myelocytes # 0.9 H Promyelocytes # 0 Nucleated Red Blood Cells # Platelet Estimate NORMAL Polychromasia 3+ Anisocytosis 1+ Microcytosis 1+ Sodium Level 138 Potassium Level 3.3 L Chloride Level 96 L Carbon Dioxide Level 30 Anion Gap 15 Blood Urea Nitrogen 54 H Creatinine 1.81 H Glucose Level 136 Calcium Level 8.7 Phosphorus Level 3.1 Magnesium Level 2.6 H Medications Medications Current Medications Metoprolol Tartrate (Lopressor) 5 mg Q4H PRN IV HR>110 Hold SBP<110 Last administered on 04/20/17 17:36; Admin Dose 5 MG; Start 04/11/17 at 13:30 Miscellaneous Information 1 ea NOTE XX ; Start 04/11/17 at 16:30 Glucose (Glutose) 15 gm Q15M PRN PO DECREASED GLUCOSE Last administered on 05/07 03:27; Admin Dose 15 GM; Start 04/11/17 at 16:30 Glucose (Glutose) 22.5 gm Q15M PRN PO DECREASED GLUCOSE; Start 04/11/17 at 16: 30 Dextrose (D50w Syringe) 25 ml Q15M PRN IV DECREASED GLUCOSE Last administered on 04/12/17 23:56; Admin Dose 25 ML; Start 04/11/17 at 16:30 Dextrose (D50w Syringe) 50 ml Q15M PRN IV DECREASED GLUCOSE; Start 04/11/17 at 16:30 Glucagon (Glucagen) 1 mg Q15M PRN IM DECREASED GLUCOSE; Start 04/11/17 at 16:30 Glucose (Glutose) 15 gm Q15M PRN BUCCAL DECREASED GLUCOSE; Start 04/11/17 at 16 :30 Metoclopramide HCl (Reglan) 10 mg Q6 IV Last administered on 06/09/17 05:21; Admin Dose 10 MG; Start 04/12/17 at 18:00 Insulin Aspart (Novolog Insulin Pen) NOVOLOG *MILD* ALGORI... Q6H SC Last administered on 06/09/17 05:31; Admin Dose 1 UNIT; Start 04/15/17 at 00:00 IV Flush (NS 10 ml) 10 ml PRN PRN IV FLUSH LINE; Start 04/15/17 at 13:00 Amiodarone HCl (Cordarone) 200 mg BID GTB Last administered on 06/09/17 09:20 ; Admin Dose 200 MG; Start 04/16/17 at 13:00 Citalopram Hydrobromide (Celexa) 20 mg DAILY NGT Last administered on 09:15; Admin Dose 20 MG; Start 04/19/17 at 09:00 Hydralazine HCl (Apresoline) 20 mg Q6H PRN IV sbp ABOVE 160 Last administered on 06/03/17 04:17; Admin Dose 20 MG; Start 04/18/17 at 18:30 Chlorhexidine Gluconate (Peridex) 15 ml BID MT Last administered on 06/09/17 09:20; Admin Dose 15 ML; Start 04/22/17 at 21:00 Vitamin A/Vitamin D (Vitamin A & D Oint) 1 applic TID TOP Last administered on 06/09/17 09:21; Admin Dose 1 APPLIC; Start 04/22/17 at 21:00 Vitamin A/Vitamin D (Vitamin A & D Oint) 1 applic TID PRN TOP DRYNESS Last administered on 04/22/17 15:29; Admin Dose 1 APPLIC; Start 04/22/17 at 15:00 Acetaminophen/ Hydrocodone Bitart ([place] (5/325)) 1 tab Q6H GTB Last administered on 06/09/17 09:20; Admin Dose 1 TAB; Start 04/22/17 at 21:30 Diltiazem HCl 5 mg 5 mg Q1H PRN IV HEART RATE GREATER THAN 120 Last administered on 04/29/17 06:17; Admin Dose 5 MG; Start 04/29/17 at 05:00 Sodium Chloride 1,000 ml @ 0 mls/hr Q0M IV Last administered on 05/01/17 03: 00; Admin Dose 1,000 MLS/HR; Start 05/01/17 at 03:00 Sodium Chloride 1,000 ml @ 0 mls/hr Q0M IV Last administered on 05/01/17 04: 00; Admin Dose 1,000 MLS/HR; Start 05/01/17 at 03:30 Diltiazem HCl (Cardizem-D5W 125 Mg/125 ml Drip) 125 ml @ 5 mls/hr TITRATE IV Last administered on 05/02/17 19:11; Admin Dose 5 MLS/HR; Start 05/02/17 at 19: 00 Metoprolol Tartrate (Lopressor) 25 mg QID GTB Last administered on 06/09/17 09 :19; Admin Dose 25 MG; Start 05/07/17 at 09:00 Vitamin B Complex/ Vitamin C (Berocca) 1 cap DAILY PO Last administered on 06/09 09:20; Admin Dose 1 CAP; Start 05/13/17 at 09:00 Aspirin (Aspirin) 81 mg DAILY NGT Last administered on 06/09/17 09:15; Admin Dose 81 MG; Start 05/19/17 at 09:00 Lansoprazole (Prevacid) 30 mg BID@,18 GTB Last administered on 06/09/17 05: 21; Admin Dose 30 MG; Start 05/20/17 at 18:00 Multivitamins (Multivitamin) 30 ml DAILY GTB Last administered on 06/09/17 09: 19; Admin Dose 30 ML; Start 05/24/17 at 09:00 Epoetin Perry (Epogen (Esrd)) 12,000 units TuThSa@17 SC Last administered on 16:34; Admin Dose 12,000 UNITS; Start 06/05/17 at 17:00 Levothyroxine Sodium (Synthroid) 150 mcg DAILY@06 GTB Last administered on 06/09t 05:20; Admin Dose 150 MCG; Start 06/09/17 at 06:00 EMILIANO HICKS Jun 09, 2017 10:51
--- NOTE | 2017-06-09 11:25 | PN ---
DATE: 06/09/2017 SUBJECTIVE DATA: The patient is currently receiving hemodialysis. No other acute events noted. OBJECTIVE DATA: VITAL SIGNS: Blood pressure is 110/76, respirations 15, temperature 98.6, and heart rate 81. HEENT: Head is normocephalic. NECK: Supple. HEART: Regular rate. LUNGS: Diminished breath sounds at the base. ABDOMEN: Soft, nontender to palpation. No guarding. EXTREMITIES: Negative for clubbing, cyanosis. Positive edema. DERMATOLOGIC: No rashes. MUSCULOSKELETAL: No joint effusion. NEUROLOGIC: No change in exam. MEDICATIONS: Reviewed. LABORATORY AND DIAGNOSTIC DATA: Shows a white count 11.8, hemoglobin 10.1, hematocrit 31.4, and platelet count is 257. Sodium 134, potassium 3.3, chloride 96, BUN 54, creatinine 1.81, and magnesium 2.6. ASSESSMENT AND PLAN: 1. Ventilatory-dependent respiratory failure. Vent settings reviewed. Arterial blood gases (ABGs) reviewed. Continue to monitor. 2. History of thyroid cancer with tracheomalacia. The patient is status post ENT evaluation. Continue to observe. 3. Acute kidney injury on top of chronic kidney disease (CKD), now progressed to end-stage renal disease. The patient is currently on hemodialysis. Outpatient hemodialysis being arranged. 4. Volume overload. Continue ultrafiltration with dialysis. 5. Anemia. The patient is status post blood transfusion. Continue to monitor hemoglobin and hematocrit levels. 6. Sepsis status post shock. The patient is completing antibiotic course. 7. Encephalopathy. Etiology toxic metabolic. Patient is improving. 8. Hypothyroidism. Continue Synthroid. 9. Hyponatremia, resolved. 10. Hypokalemia. Replete potassium chloride. 11. Dysphagia, status post percutaneous endoscopic gastrostomy. Continue tube feeding. 12. Status post gastrointestinal (GI) bleed. 13. Gastrointestinal (GI) and deep venous thrombosis (DVT) prophylaxis. Continue proton pump inhibitors (PPI) and sequential leg squeezers. 14. Adrenal insufficiency. The patient is currently on steroids. Appreciate Endocrinology's evaluation. DISPOSITION: The patient is pending eventual transfer to subacute facility once outpatient dialysis is arranged. Dictated By: Abebe Valderrama DO /[email or web address]/[email or web address] /Document#: [id number]
--- NOTE | 2017-06-09 17:06 | CONS ---
Date/Time of Note Date/Time of Note DATE: 06/09/17 TIME: 17:04 Consult Date/Type/Reason Admit Date/Time Apr 11, 2017 at 11:28 Initial Consult Date 04/12/17 Type of Consultation: CARDIOLOGY Ordering Provider: NINA MACIEL DO Subjective CARDIOLOGY FOLLOW UP NOTE: D/W staff and rhythm was reviewed. pt remains in NSR. no afib overnight no chest pain or pressure or palpitations. pt still s/p trach on vent on tele. no reported active bleeding Objective: General: s/p trach on vent HEENT: NC/AT. . oropharynx with multiple lesions. . NECK: NO JVD. no stridor. s/p trach on vent CV: RRR. systolic ejection murmur; no gallop or rubs. PULM: + mild rhonchi. no wheezes. GI: SOFT, NT, ND, no rebound or guarding s/p PEG Extremity: 2-3+ B/L LE edema. no clubbing. neuro: sleeping comfortably . Psych: calm rectal: deferred Derm: multiple echymosis chest: s/p right chest HD access in place. Objective Vital Signs Date Time Temp Pulse Resp B/P Pulse Ox O2 Delivery O2 Flow Rate FiO2 06/09/17 15:20 98.0 54 18 121/65 97 06/09/17 11:15 30 06/07/17 04:00 Mechanical Ventilator Intake and Output 06/08/17 06/08/17 06/09/17 15:00 23:00 07:00 Intake Total 360 ml 860 ml Output Total 350 ml 3750 ml Balance 10 ml -2890 ml Results/Medications Result Diagram: 06/09/17 0547 06/09/17 0547 Results 24 hrs Laboratory Tests Test 06/08/17 17:43 06/08/17 23:30 06/09/17 05:23 06/09/17 05:47 Bedside Glucose 127 151 144 White Blood Count 11.8 #H Red Blood Count 3.24 L Hemoglobin 10.1 L Hematocrit 31.4 L Mean Corpuscular Volume 96.9 Mean Corpuscular Hemoglobin 31.2 Mean Corpuscular Hemoglobin Concent 32.2 Red Cell Distribution Width 18.5 H Platelet Count 257 Mean Platelet Volume 10.1 Neutrophils % Segmented Neutrophils % (Manual) 73 Band Neutrophils % (Manual) 4 Lymphocytes % Lymphocytes % (Manual) 5 L Reactive Lymphocytes % (Manual) 2 H Monocytes % Monocytes % (Manual) 4 Eosinophils % Eosinophils % (Manual) 1 Basophils % Basophils % (Manual) 1 Myelocytes % (Manual) 8 H Promyelocytes % (Manual) 2 H Nucleated Red Blood Cells % 0.0 Neutrophils # (Manual) 8.7 H Band Neutrophils # 0.4 Absolute Lymphocytes (Manual) 0.5 L Lymphocytes # Reactive Lymphocytes # 0.2 H Monocytes # Absolute Monocytes (Manual) 0.4 Eosinophils # Basophils # Basophils # (Manual) 0.1 H Myelocytes # 0.9 H Promyelocytes # 0 Nucleated Red Blood Cells # Platelet Estimate NORMAL Polychromasia 3+ Anisocytosis 1+ Microcytosis 1+ Sodium Level 138 Potassium Level 3.3 L Chloride Level 96 L Carbon Dioxide Level 30 Anion Gap 15 Blood Urea Nitrogen 54 H Creatinine 1.81 H Glucose Level 136 Calcium Level 8.7 Phosphorus Level 3.1 Magnesium Level 2.6 H Test 06/09/17 12:38 Bedside Glucose 120 Medications Current Medications Metoprolol Tartrate (Lopressor) 5 mg Q4H PRN IV HR>110 Hold SBP<110 Last administered on 04/20/17 17:36; Admin Dose 5 MG; Start 04/11/17 at 13:30 Miscellaneous Information 1 ea NOTE XX ; Start 04/11/17 at 16:30 Glucose (Glutose) 15 gm Q15M PRN PO DECREASED GLUCOSE Last administered on 05/07 03:27; Admin Dose 15 GM; Start 04/11/17 at 16:30 Glucose (Glutose) 22.5 gm Q15M PRN PO DECREASED GLUCOSE; Start 04/11/17 at 16: 30 Dextrose (D50w Syringe) 25 ml Q15M PRN IV DECREASED GLUCOSE Last administered on 04/12/17 23:56; Admin Dose 25 ML; Start 04/11/17 at 16:30 Dextrose (D50w Syringe) 50 ml Q15M PRN IV DECREASED GLUCOSE; Start 04/11/17 at 16:30 Glucagon (Glucagen) 1 mg Q15M PRN IM DECREASED GLUCOSE; Start 04/11/17 at 16:30 Glucose (Glutose) 15 gm Q15M PRN BUCCAL DECREASED GLUCOSE; Start 04/11/17 at 16 :30 Metoclopramide HCl (Reglan) 10 mg Q6 IV Last administered on 06/09/17 13:52; Admin Dose 10 MG; Start 04/12/17 at 18:00 Insulin Aspart (Novolog Insulin Pen) NOVOLOG *MILD* ALGORI... Q6H SC Last administered on 06/09/17 05:31; Admin Dose 1 UNIT; Start 04/15/17 at 00:00 IV Flush (NS 10 ml) 10 ml PRN PRN IV FLUSH LINE; Start 04/15/17 at 13:00 Amiodarone HCl (Cordarone) 200 mg BID GTB Last administered on 06/09/17 09:20 ; Admin Dose 200 MG; Start 04/16/17 at 13:00 Citalopram Hydrobromide (Celexa) 20 mg DAILY NGT Last administered on 09:15; Admin Dose 20 MG; Start 04/19/17 at 09:00 Hydralazine HCl (Apresoline) 20 mg Q6H PRN IV sbp ABOVE 160 Last administered on 06/03/17 04:17; Admin Dose 20 MG; Start 04/18/17 at 18:30 Chlorhexidine Gluconate (Peridex) 15 ml BID MT Last administered on 06/09/17 09:20; Admin Dose 15 ML; Start 04/22/17 at 21:00 Vitamin A/Vitamin D (Vitamin A & D Oint) 1 applic TID TOP Last administered on 06/09/17 09:21; Admin Dose 1 APPLIC; Start 04/22/17 at 21:00 Vitamin A/Vitamin D (Vitamin A & D Oint) 1 applic TID PRN TOP DRYNESS Last administered on 04/22/17 15:29; Admin Dose 1 APPLIC; Start 04/22/17 at 15:00 Acetaminophen/ Hydrocodone Bitart ([place] (5/325)) 1 tab Q6H GTB Last administered on 06/09/17 16:35; Admin Dose 1 TAB; Start 04/22/17 at 21:30 Diltiazem HCl 5 mg 5 mg Q1H PRN IV HEART RATE GREATER THAN 120 Last administered on 04/29/17 06:17; Admin Dose 5 MG; Start 04/29/17 at 05:00 Sodium Chloride 1,000 ml @ 0 mls/hr Q0M IV Last administered on 05/01/17 03: 00; Admin Dose 1,000 MLS/HR; Start 05/01/17 at 03:00 Sodium Chloride 1,000 ml @ 0 mls/hr Q0M IV Last administered on 05/01/17 04: 00; Admin Dose 1,000 MLS/HR; Start 05/01/17 at 03:30 Diltiazem HCl (Cardizem-D5W 125 Mg/125 ml Drip) 125 ml @ 5 mls/hr TITRATE IV Last administered on 05/02/17 19:11; Admin Dose 5 MLS/HR; Start 05/02/17 at 19: 00 Metoprolol Tartrate (Lopressor) 25 mg QID GTB Last administered on 06/09/17 13 :53; Admin Dose 25 MG; Start 05/07/17 at 09:00 Vitamin B Complex/ Vitamin C (Berocca) 1 cap DAILY PO Last administered on 06/09 09:20; Admin Dose 1 CAP; Start 05/13/17 at 09:00 Aspirin (Aspirin) 81 mg DAILY NGT Last administered on 06/09/17 09:15; Admin Dose 81 MG; Start 05/19/17 at 09:00 Lansoprazole (Prevacid) 30 mg BID@,18 GTB Last administered on 06/09/17 05: 21; Admin Dose 30 MG; Start 05/20/17 at 18:00 Multivitamins (Multivitamin) 30 ml DAILY GTB Last administered on 06/09/17 09: 19; Admin Dose 30 ML; Start 05/24/17 at 09:00 Epoetin Perry (Epogen (Esrd)) 12,000 units TuThSa@17 SC Last administered on 16:34; Admin Dose 12,000 UNITS; Start 06/05/17 at 17:00 Levothyroxine Sodium (Synthroid) 150 mcg DAILY@06 GTB Last administered on 06/09 05:20; Admin Dose 150 MCG; Start 06/09/17 at 06:00 Assessment/Plan Chief Complaint/Hosp Course 1. acute on chronic hypoxemic respiratory failure: 2. S/P NSTEMI: due to demand ischemia. 3. CHF/ fluid overload: due to diastolic heart failure and renal failure 4. moderate 5. Arrhythmia and P afib, frequent PVC: currently in NSR. 6. ANEMIA: s/p multiple transfusion 7. s/p pneumonia, . 8. s/p sepsis and shock: BP is stable now. 9. Anasarca 10. s/p cardiopulm arrest due to resp failure 11. renal failure 12. coagulopathy; resolved now. Rec: cont resp care and vent support. defer to PULM Team. correct lytes prn. CONT betablocker as tolerated. . cont thyroid supplement . cont tele monitoring HD as per renal transfuse prn, currently H/H has improved. cont low dose ASA 81 mg only due to recurrent anemia. THANK YOU. Problems: FRANCISCO BLACKWOOD MD Jun 09, 2017 17:05
--- NOTE | 2017-06-09 18:17 | CONS ---
Date/Time of Note Date/Time of Note DATE: 06/09/17 TIME: 18:16 Assessment/Plan Assessment/Plan Chief Complaint/Hosp Course SUBJECTIVE: No acute events overnight. Lethargic, looks comfortable, afebrile Indwelling: Trach, PEG Latif, RIJ p-cath 06/05 PHYSICAL EXAMINATION: This is a fragile, chronically ill- appearing, elderly woman who is awake, in no distress. HEENT: Head atraumatic, normocephalic. Sclerae anicteric. Buccal mucosa dry. NECK: Supple. Tracheostomy present. CHEST: Chest rise symmetric. Breath sounds diminished at bases. HEART: S1, S2. ABDOMEN: Soft. Bowel sounds present. EXTREMITIES: Without cyanosis. SKIN: Positive for anasarca. ASSESSMENT: 1. Status post septic shock, urinary tract infection, pneumonia. 2. Beasj-fh-ghskmmn respiratory failure/HD dependent, s/p perm-cath. 3. Status post fungemia. 4. Bbowk-tu-ghjqrcr kidney disease. 5. History of Clostridium difficile colitis. 6. Left upper extremity deep vein thrombosis. PLAN: The patient remains stable, observe off abx, repeat cx prn DW staff Problems: Consultation Date/Type/Reason Admit Date/Time Apr 11, 2017 at 11:28 Initial Consult Date 04/12/17 Type of Consultation: id Referring Provider: NINA MACIEL DO Exam/Review of Systems Vital Signs Vitals Vital Signs Date Time Temp Pulse Resp B/P Pulse Ox O2 Delivery O2 Flow Rate FiO2 06/09/17 17:04 65 12 100 30 06/09/17 15:20 98.0 121/65 06/07/17 04:00 Mechanical Ventilator Intake and Output 06/08/17 06/08/17 06/09/17 15:00 23:00 07:00 Intake Total 360 ml 860 ml Output Total 350 ml 3750 ml Balance 10 ml -2890 ml Results Result Diagram: 06/09/17 0547 06/09/17 0547 Results 24 hrs Laboratory Tests Test 06/08/17 23:30 06/09/17 05:23 06/09/17 05:47 06/09/17 12:38 Bedside Glucose 151 144 120 White Blood Count 11.8 #H Red Blood Count 3.24 L Hemoglobin 10.1 L Hematocrit 31.4 L Mean Corpuscular Volume 96.9 Mean Corpuscular Hemoglobin 31.2 Mean Corpuscular Hemoglobin Concent 32.2 Red Cell Distribution Width 18.5 H Platelet Count 257 Mean Platelet Volume 10.1 Neutrophils % Segmented Neutrophils % (Manual) 73 Band Neutrophils % (Manual) 4 Lymphocytes % Lymphocytes % (Manual) 5 L Reactive Lymphocytes % (Manual) 2 H Monocytes % Monocytes % (Manual) 4 Eosinophils % Eosinophils % (Manual) 1 Basophils % Basophils % (Manual) 1 Myelocytes % (Manual) 8 H Promyelocytes % (Manual) 2 H Nucleated Red Blood Cells % 0.0 Neutrophils # (Manual) 8.7 H Band Neutrophils # 0.4 Absolute Lymphocytes (Manual) 0.5 L Lymphocytes # Reactive Lymphocytes # 0.2 H Monocytes # Absolute Monocytes (Manual) 0.4 Eosinophils # Basophils # Basophils # (Manual) 0.1 H Myelocytes # 0.9 H Promyelocytes # 0 Nucleated Red Blood Cells # Platelet Estimate NORMAL Polychromasia 3+ Anisocytosis 1+ Microcytosis 1+ Sodium Level 138 Potassium Level 3.3 L Chloride Level 96 L Carbon Dioxide Level 30 Anion Gap 15 Blood Urea Nitrogen 54 H Creatinine 1.81 H Glucose Level 136 Calcium Level 8.7 Phosphorus Level 3.1 Magnesium Level 2.6 H Medications Medications Current Medications Metoprolol Tartrate (Lopressor) 5 mg Q4H PRN IV HR>110 Hold SBP<110 Last administered on 04/20/17 17:36; Admin Dose 5 MG; Start 04/11/17 at 13:30 Miscellaneous Information 1 ea NOTE XX ; Start 04/11/17 at 16:30 Glucose (Glutose) 15 gm Q15M PRN PO DECREASED GLUCOSE Last administered on 05/07 03:27; Admin Dose 15 GM; Start 04/11/17 at 16:30 Glucose (Glutose) 22.5 gm Q15M PRN PO DECREASED GLUCOSE; Start 04/11/17 at 16: 30 Dextrose (D50w Syringe) 25 ml Q15M PRN IV DECREASED GLUCOSE Last administered on 04/12/17 23:56; Admin Dose 25 ML; Start 04/11/17 at 16:30 Dextrose (D50w Syringe) 50 ml Q15M PRN IV DECREASED GLUCOSE; Start 04/11/17 at 16:30 Glucagon (Glucagen) 1 mg Q15M PRN IM DECREASED GLUCOSE; Start 04/11/17 at 16:30 Glucose (Glutose) 15 gm Q15M PRN BUCCAL DECREASED GLUCOSE; Start 04/11/17 at 16 :30 Metoclopramide HCl (Reglan) 10 mg Q6 IV Last administered on 06/09/17 13:52; Admin Dose 10 MG; Start 04/12/17 at 18:00 Insulin Aspart (Novolog Insulin Pen) NOVOLOG *MILD* ALGORI... Q6H SC Last administered on 06/09/17 05:31; Admin Dose 1 UNIT; Start 04/15/17 at 00:00 IV Flush (NS 10 ml) 10 ml PRN PRN IV FLUSH LINE; Start 04/15/17 at 13:00 Amiodarone HCl (Cordarone) 200 mg BID GTB Last administered on 06/09/17 09:20 ; Admin Dose 200 MG; Start 04/16/17 at 13:00 Citalopram Hydrobromide (Celexa) 20 mg DAILY NGT Last administered on 09:15; Admin Dose 20 MG; Start 04/19/17 at 09:00 Hydralazine HCl (Apresoline) 20 mg Q6H PRN IV sbp ABOVE 160 Last administered on 06/03/17 04:17; Admin Dose 20 MG; Start 04/18/17 at 18:30 Chlorhexidine Gluconate (Peridex) 15 ml BID MT Last administered on 06/09/17 09:20; Admin Dose 15 ML; Start 04/22/17 at 21:00 Vitamin A/Vitamin D (Vitamin A & D Oint) 1 applic TID TOP Last administered on 06/09/17 09:21; Admin Dose 1 APPLIC; Start 04/22/17 at 21:00 Vitamin A/Vitamin D (Vitamin A & D Oint) 1 applic TID PRN TOP DRYNESS Last administered on 04/22/17 15:29; Admin Dose 1 APPLIC; Start 04/22/17 at 15:00 Acetaminophen/ Hydrocodone Bitart ([place] (5/325)) 1 tab Q6H GTB Last administered on 06/09/17 16:35; Admin Dose 1 TAB; Start 04/22/17 at 21:30 Diltiazem HCl 5 mg 5 mg Q1H PRN IV HEART RATE GREATER THAN 120 Last administered on 04/29/17 06:17; Admin Dose 5 MG; Start 04/29/17 at 05:00 Sodium Chloride 1,000 ml @ 0 mls/hr Q0M IV Last administered on 05/01/17 03: 00; Admin Dose 1,000 MLS/HR; Start 05/01/17 at 03:00 Sodium Chloride 1,000 ml @ 0 mls/hr Q0M IV Last administered on 05/01/17 04: 00; Admin Dose 1,000 MLS/HR; Start 05/01/17 at 03:30 Diltiazem HCl (Cardizem-D5W 125 Mg/125 ml Drip) 125 ml @ 5 mls/hr TITRATE IV Last administered on 05/02/17 19:11; Admin Dose 5 MLS/HR; Start 05/02/17 at 19: 00 Metoprolol Tartrate (Lopressor) 25 mg QID GTB Last administered on 06/09/17 13 :53; Admin Dose 25 MG; Start 05/07/17 at 09:00 Vitamin B Complex/ Vitamin C (Berocca) 1 cap DAILY PO Last administered on 06/09 09:20; Admin Dose 1 CAP; Start 05/13/17 at 09:00 Aspirin (Aspirin) 81 mg DAILY NGT Last administered on 06/09/17 09:15; Admin Dose 81 MG; Start 05/19/17 at 09:00 Lansoprazole (Prevacid) 30 mg BID@,18 GTB Last administered on 06/09/17 05: 21; Admin Dose 30 MG; Start 05/20/17 at 18:00 Multivitamins (Multivitamin) 30 ml DAILY GTB Last administered on 06/09/17 09: 19; Admin Dose 30 ML; Start 05/24/17 at 09:00 Epoetin Perry (Epogen (Esrd)) 12,000 units TuThSa@17 SC Last administered on 16:34; Admin Dose 12,000 UNITS; Start 06/05/17 at 17:00 Levothyroxine Sodium (Synthroid) 150 mcg DAILY@06 GTB Last administered on 06/09 05:20; Admin Dose 150 MCG; Start 06/09/17 at 06:00 LORETO MCKEON NP Jun 09, 2017 18:17
[2017-06-10] VITALS (24 sets, daily range): BP systolic 103–130; BP diastolic 56–71; PULSE 69–75; RESP 10–20
[2017-06-10] MEDS: METOCLOPRAMIDE 10 MG INJ IV SCH ×4 (00:30→18:18)
[2017-06-10] MEDS: LEVALBUTEROL (HFA) 15 GM INHALER INH SCH ×4 (01:10→19:32)
[2017-06-10] MEDS: HYDROCODONE/APAP (5/325) TAB GTB SCH ×4 (03:17→21:07)
[2017-06-10] MEDS: INSULIN ASPART [NOVOLOG] 3 ML PEN SC SCH ×4 (06:00→18:00)
[2017-06-10] MEDS: LEVOTHYROXINE 150 MCG TAB GTB SCH (06:25)
[2017-06-10] MEDS: LANSOPRAZOLE 30 MG CAP GTB SCH ×2 (06:25→18:18)
[2017-06-10 07:03] LABS: ABNORMAL IP MESSAGE 1; HEMOGLOBIN 10.2 g/dl (12.0-16.0); MEAN CORPUSCULAR HEMOGLOBIN 30.2 pg (29.0-33.0); MEAN CORPUSCULAR HGB CONC 30.9 g/dl (32.0-37.0); MEAN CORPUSCULAR VOLUME 97.6 fl (82.0-101.0); MEAN PLATELET VOLUME 9.9 fl (7.4-10.4); NUCLEATED RED BLOOD CELLS% 0.3 /100WBC (0.0-0.0); PLATELET COUNT 298 10^3/UL (140-415); RED BLOOD COUNT 3.38 10^6/ul (4.20-5.40); WHITE BLOOD COUNT 14.4 10^3/ul (4.8-10.8)
[2017-06-10 07:18] LABS: POSITIVE DIFF @See below
[2017-06-10 07:31] LABS: CALCIUM 9.1 mg/dl (8.4-10.2); CREATININE 1.83 mg/dl (0.44-1.00); MAGNESIUM 2.6 mg/dl (1.7-2.5); PHOSPHORUS 3.1 mg/dl (2.5-4.9); POTASSIUM 4.1 mmol/L (3.5-5.1)
--- NOTE | 2017-06-10 09:02 | PN ---
DATE: 06/10/2017 SUBJECTIVE DATA: The patient is stable. Had hemodialysis yesterday, tolerated well. OBJECTIVE DATA: VITAL SIGNS: Blood pressure 120/59, pulse 72, temperature 97.9, heart rate 93. HEENT: Head is normocephalic. NECK: Supple. HEART: Regular rate. LUNGS: Show diminished breath sounds base. ABDOMEN: Soft, nontender to palpation. No rebound or guarding. EXTREMITIES: Negative for clubbing, cyanosis. Positive edema. DERMATOLOGIC: Clean. No rashes. MUSCULOSKELETAL: No joint effusion. NEUROLOGIC: Unchanged exam. MEDICATIONS: Reviewed. LABORATORY AND DIAGNOSTIC DATA: Shows a white count 14.4, hemoglobin 10.2, crit of 33.0 and platelet count is 298. Sodium 143, BUN 51, creatinine 1.83. Magnesium 2.6. ASSESSMENT AND PLAN: 1. Ventilatory-respiratory failure management failure. Vent settings reviewed. ABGs reviewed. Continue to monitor. 2. History of thyroid cancer, tracheomalacia. The patient is status post ENT evaluation. Continue to monitor. 3. Acute kidney injury on top of chronic kidney disease, now progressed to end-stage renal disease. Patient is on hemodialysis. Awaiting for outpatient dialysis arrangement. 4. Volume overload. Continue ultrafiltration with dialysis. 5. Anemia. Continue to monitor H and H levels. 6. Sepsis, status post shock. Patient is completing antibiotic course. 7. Encephalopathy. Etiology is toxic metabolic. 8. Hypothyroidism. Continue Synthroid. 9. Hyponatremia, resolved. 10. Hyperkalemia. Continue to monitor. Replete potassium chloride. 11. Dysphagia, status post percutaneous endoscopic gastrostomy. Continue tube feeding. 12. Status post gastrointestinal bleed. 13. Adrenal insufficiency. Continue current steroid regimen. Appreciate endocrinology evaluation. 14. Gastrointestinal and deep venous thrombosis prophylaxis. Continue proton pump inhibitor and sequential leg squeezers. Dictated By: Abebe Valderrama DO /marquita/laith /Document#: [id number]
--- NOTE | 2017-06-10 09:06 | CONS ---
Date/Time of Note Date/Time of Note DATE: 06/10/17 TIME: 09:03 Assessment/Plan Assessment/Plan Additional Assessment/Plan Ventilator setting; CPAP mode pressure support of 12, 30% FiO2. Assessment and recommendations; 1. P patient admitted with sepsis status post antibiotic treatment. 2. Chronic respiratory failure, status post redo tracheostomy 2. 3. Remote history of glossal cancer. Next 4. COPD. 5. Anemia. 6. Renal failure. 7. Hypo-thyroidism. 8. Severe generalized deconditioning. Continue current treatment. Consider discharge to [facility]. Consultation Date/Type/Reason Admit Date/Time Apr 11, 2017 at 11:28 Initial Consult Date 05/01/17 Type of Consultation: Pulmonary Referring Provider: NINA MACIEL DO 24 HR Interval Summary Free Text/Dictation Patient's condition remains stable. Has been tolerating CPAP more very well. General exam; elderly woman, on ventilator via tracheostomy, currently no distress. Exam/Review of Systems Vital Signs Vitals Vital Signs Date Time Temp Pulse Resp B/P Pulse Ox O2 Delivery O2 Flow Rate FiO2 06/10/17 07:20 97.9 72 19 120/59 93 06/10/17 05:10 30 06/07/17 04:00 Mechanical Ventilator Intake and Output 06/09/17 06/09/17 06/10/17 15:00 23:00 07:00 Intake Total 360 ml Output Total 80 ml Balance 280 ml Exam HEENT exam; supple neck, no JVD. No lymphadenopathy. Midline trachea. No thyromegaly. Patient has fair dentition. Tracheostomy in place. Chest exam; clear to auscultation. S1-S2 audible, no murmurs. Regular rhythm. Abdomen exam; soft, G-tube in place. No organomegaly. Bowel sounds audible. Extremity exam; 2+ pitting edema in lower extremities bilaterally. Trace edema in the upper extremities bilaterally. No clubbing. Pulses 1+ bilaterally. 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 Patient still exhibiting profound muscular weakness though. Results Result Diagram: 06/10/17 0624 06/10/17 0624 Results 24 hrs Laboratory Tests Test 06/09/17 12:38 06/09/17 18:16 06/10/17 00:21 06/10/17 06:24 Bedside Glucose 120 114 122 White Blood Count 14.4 #H Red Blood Count 3.38 L Hemoglobin 10.2 L Hematocrit 33.0 L Mean Corpuscular Volume 97.6 Mean Corpuscular Hemoglobin 30.2 Mean Corpuscular Hemoglobin Concent 30.9 L Red Cell Distribution Width 19.0 H Platelet Count 298 Mean Platelet Volume 9.9 Neutrophils % Lymphocytes % Monocytes % Eosinophils % Basophils % Nucleated Red Blood Cells % 0.3 H Neutrophils # (Manual) 10.2 H Lymphocytes # Monocytes # Eosinophils # Basophils # Nucleated Red Blood Cells # Sodium Level 143 Potassium Level 4.1 Chloride Level 102 Carbon Dioxide Level 31 Anion Gap 14 Blood Urea Nitrogen 51 H Creatinine 1.83 H Glucose Level 124 Calcium Level 9.1 Phosphorus Level 3.1 Magnesium Level 2.6 H Test 06/10/17 06:25 Bedside Glucose 140 Medications Medications Current Medications Metoprolol Tartrate (Lopressor) 5 mg Q4H PRN IV HR>110 Hold SBP<110 Last administered on 04/20/17 17:36; Admin Dose 5 MG; Start 04/11/17 at 13:30 Miscellaneous Information 1 ea NOTE XX ; Start 04/11/17 at 16:30 Glucose (Glutose) 15 gm Q15M PRN PO DECREASED GLUCOSE Last administered on 05/07 03:27; Admin Dose 15 GM; Start 04/11/17 at 16:30 Glucose (Glutose) 22.5 gm Q15M PRN PO DECREASED GLUCOSE; Start 04/11/17 at 16: 30 Dextrose (D50w Syringe) 25 ml Q15M PRN IV DECREASED GLUCOSE Last administered on 04/12/17 23:56; Admin Dose 25 ML; Start 04/11/17 at 16:30 Dextrose (D50w Syringe) 50 ml Q15M PRN IV DECREASED GLUCOSE; Start 04/11/17 at 16:30 Glucagon (Glucagen) 1 mg Q15M PRN IM DECREASED GLUCOSE; Start 04/11/17 at 16:30 Glucose (Glutose) 15 gm Q15M PRN BUCCAL DECREASED GLUCOSE; Start 04/11/17 at 16 :30 Metoclopramide HCl (Reglan) 10 mg Q6 IV Last administered on 06/10/17 06:26; Admin Dose 10 MG; Start 04/12/17 at 18:00 Insulin Aspart (Novolog Insulin Pen) NOVOLOG *MILD* ALGORI... Q6H SC Last administered on 06/09/17 05:31; Admin Dose 1 UNIT; Start 04/15/17 at 00:00 IV Flush (NS 10 ml) 10 ml PRN PRN IV FLUSH LINE; Start 04/15/17 at 13:00 Amiodarone HCl (Cordarone) 200 mg BID GTB Last administered on 06/09/17 21:17 ; Admin Dose 200 MG; Start 04/16/17 at 13:00 Citalopram Hydrobromide (Celexa) 20 mg DAILY NGT Last administered on 09:15; Admin Dose 20 MG; Start 04/19/17 at 09:00 Hydralazine HCl (Apresoline) 20 mg Q6H PRN IV sbp ABOVE 160 Last administered on 06/03/17 04:17; Admin Dose 20 MG; Start 04/18/17 at 18:30 Chlorhexidine Gluconate (Peridex) 15 ml BID MT Last administered on 06/09/17 21:18; Admin Dose 15 ML; Start 04/22/17 at 21:00 Vitamin A/Vitamin D (Vitamin A & D Oint) 1 applic TID TOP Last administered on 06/09/17 21:18; Admin Dose 1 APPLIC; Start 04/22/17 at 21:00 Vitamin A/Vitamin D (Vitamin A & D Oint) 1 applic TID PRN TOP DRYNESS Last administered on 04/22/17 15:29; Admin Dose 1 APPLIC; Start 04/22/17 at 15:00 Acetaminophen/ Hydrocodone Bitart ([place] (5/325)) 1 tab Q6H GTB Last administered on 06/10/17 03:17; Admin Dose 1 TAB; Start 04/22/17 at 21:30 Diltiazem HCl 5 mg 5 mg Q1H PRN IV HEART RATE GREATER THAN 120 Last administered on 04/29/17 06:17; Admin Dose 5 MG; Start 04/29/17 at 05:00 Sodium Chloride 1,000 ml @ 0 mls/hr Q0M IV Last administered on 05/01/17 03: 00; Admin Dose 1,000 MLS/HR; Start 05/01/17 at 03:00 Sodium Chloride 1,000 ml @ 0 mls/hr Q0M IV Last administered on 05/01/17 04: 00; Admin Dose 1,000 MLS/HR; Start 05/01/17 at 03:30 Diltiazem HCl (Cardizem-D5W 125 Mg/125 ml Drip) 125 ml @ 5 mls/hr TITRATE IV Last administered on 05/02/17 19:11; Admin Dose 5 MLS/HR; Start 05/02/17 at 19: 00 Metoprolol Tartrate (Lopressor) 25 mg QID GTB Last administered on 06/09/17 21 :18; Admin Dose 25 MG; Start 05/07/17 at 09:00 Vitamin B Complex/ Vitamin C (Berocca) 1 cap DAILY PO Last administered on 06/09 09:20; Admin Dose 1 CAP; Start 05/13/17 at 09:00 Aspirin (Aspirin) 81 mg DAILY NGT Last administered on 06/09/17 09:15; Admin Dose 81 MG; Start 05/19/17 at 09:00 Lansoprazole (Prevacid) 30 mg BID@,18 GTB Last administered on 06/10/17 06: 25; Admin Dose 30 MG; Start 05/20/17 at 18:00 Multivitamins (Multivitamin) 30 ml DAILY GTB Last administered on 06/09/17 09: 19; Admin Dose 30 ML; Start 05/24/17 at 09:00 Epoetin Perry (Epogen (Esrd)) 12,000 units TuThSa@17 SC Last administered on 16:34; Admin Dose 12,000 UNITS; Start 06/05/17 at 17:00 Levothyroxine Sodium (Synthroid) 150 mcg DAILY@06 GTB Last administered on 06/10 06:25; Admin Dose 150 MCG; Start 06/09/17 at 06:00 EMILIANO HICKS Jun 10, 2017 09:06
[2017-06-10] MEDS: ASPIRIN 81 MG TAB NGT SCH (09:35)
[2017-06-10] MEDS: AMIODARONE 200 MG TAB GTB SCH ×2 (09:35→21:06)
[2017-06-10] MEDS: METOPROLOL 25 MG TAB GTB SCH ×4 (09:36→21:06)
[2017-06-10] MEDS: CITALOPRAM 20 MG TAB NGT SCH (09:36)
[2017-06-10] MEDS: VITAMIN B COMPLEX/VIT C CAP PO SCH (09:36)
[2017-06-10] MEDS: MULTIVITAMINS 30 ML CUP GTB SCH (09:36)
[2017-06-10] MEDS: CHLORHEXIDINE GLUCONATE 15 ML UD CUP MT SCH ×2 (09:36→21:06)
[2017-06-10] MEDS: VITAMIN A & D 5 GM OINT PACKET TOP SCH ×3 (09:37→21:05)
[2017-06-10 10:28] LABS: LYMPHOCYTES # 1.7 10^3/ul (0.8-2.9); MONOCYTE # 0.6 10^3/ul (0.3-0.9); MONOCYTES % (M) 4 % (0-11); MYELOCYTES % (M) 2 % (0-0); PROMYELOCYTES #M 0 10^3/ul (0-0); PROMYELOCYTES % (M) 2 % (0-0)
--- NOTE | 2017-06-10 13:06 | CONS ---
Date/Time of Note Date/Time of Note DATE: 06/10/17 TIME: 13:04 Assessment/Plan Assessment/Plan Chief Complaint/Hosp Course SUBJECTIVE: No acute events overnight. Lethargic, looks comfortable, afebrile Temperature 98.1 pulse 69 respirations 19 blood pressure 116/56 saturation 100 on 30 FiO2 WBC 14.4 H&H 10.2 and 33 platelets 298 Indwelling: Trach, PEG Latif, RIJ p-cath 06/05 PHYSICAL EXAMINATION: This is a fragile, chronically ill- appearing, elderly woman who is awake, in no distress. HEENT: Head atraumatic, normocephalic. Sclerae anicteric. Buccal mucosa dry. NECK: Supple. Tracheostomy present. CHEST: Chest rise symmetric. Breath sounds diminished at bases. HEART: S1, S2. ABDOMEN: Soft. Bowel sounds present. EXTREMITIES: Without cyanosis. SKIN: Positive for anasarca. ASSESSMENT: 1. Status post septic shock, urinary tract infection, pneumonia. 2. [id number]-[id number] respiratory failure/HD dependent, s/p perm-cath. 3. Status post fungemia. 4. [id number] kidney disease. 5. History of Clostridium difficile colitis. 6. Left upper extremity deep vein thrombosis. 7. Leukocytosis PLAN: The patient remains stable, off abx, will monitor white blood cell count , repeat cultures as needed DW staff Problems: Consultation Date/Type/Reason Admit Date/Time Apr 11, 2017 at 11:28 Initial Consult Date 04/12/17 Type of Consultation: id Referring Provider: NINA MACIEL DO Exam/Review of Systems Vital Signs Vitals Vital Signs Date Time Temp Pulse Resp B/P Pulse Ox O2 Delivery O2 Flow Rate FiO2 06/10/17 12:24 69 06/10/17 11:16 17 100 30 06/10/17 11:09 98.1 116/56 06/07/17 04:00 Mechanical Ventilator Intake and Output 06/09/17 06/09/17 06/10/17 15:00 23:00 07:00 Intake Total 360 ml Output Total 80 ml Balance 280 ml Results Result Diagram: 06/10/17 0624 06/10/17 0624 Results 24 hrs Laboratory Tests Test 06/09/17 18:16 06/10/17 00:21 06/10/17 06:24 06/10/17 06:25 Bedside Glucose 114 122 140 White Blood Count 14.4 #H Red Blood Count 3.38 L Hemoglobin 10.2 L Hematocrit 33.0 L Mean Corpuscular Volume 97.6 Mean Corpuscular Hemoglobin 30.2 Mean Corpuscular Hemoglobin Concent 30.9 L Red Cell Distribution Width 19.0 H Platelet Count 298 Mean Platelet Volume 9.9 Neutrophils % Segmented Neutrophils % (Manual) 75 Band Neutrophils % (Manual) 5 H Lymphocytes % Lymphocytes % (Manual) 12 L Monocytes % Monocytes % (Manual) 4 Eosinophils % Basophils % Myelocytes % (Manual) 2 H Promyelocytes % (Manual) 2 H Nucleated Red Blood Cells % 0.3 H Neutrophils # (Manual) 10.9 H Band Neutrophils # 0.7 H Absolute Lymphocytes (Manual) 1.7 Lymphocytes # 1.7 Monocytes # 0.6 Absolute Monocytes (Manual) 0.5 Eosinophils # Basophils # Myelocytes # 0.2 H Promyelocytes # 0 Nucleated Red Blood Cells # Sodium Level 143 Potassium Level 4.1 Chloride Level 102 Carbon Dioxide Level 31 Anion Gap 14 Blood Urea Nitrogen 51 H Creatinine 1.83 H Glucose Level 124 Calcium Level 9.1 Phosphorus Level 3.1 Magnesium Level 2.6 H Test 06/10/17 12:19 Bedside Glucose 156 Medications Medications Current Medications Metoprolol Tartrate (Lopressor) 5 mg Q4H PRN IV HR>110 Hold SBP<110 Last administered on 04/20/17 17:36; Admin Dose 5 MG; Start 04/11/17 at 13:30 Miscellaneous Information 1 ea NOTE XX ; Start 04/11/17 at 16:30 Glucose (Glutose) 15 gm Q15M PRN PO DECREASED GLUCOSE Last administered on 05/07 03:27; Admin Dose 15 GM; Start 04/11/17 at 16:30 Glucose (Glutose) 22.5 gm Q15M PRN PO DECREASED GLUCOSE; Start 04/11/17 at 16: 30 Dextrose (D50w Syringe) 25 ml Q15M PRN IV DECREASED GLUCOSE Last administered on 04/12/17 23:56; Admin Dose 25 ML; Start 04/11/17 at 16:30 Dextrose (D50w Syringe) 50 ml Q15M PRN IV DECREASED GLUCOSE; Start 04/11/17 at 16:30 Glucagon (Glucagen) 1 mg Q15M PRN IM DECREASED GLUCOSE; Start 04/11/17 at 16:30 Glucose (Glutose) 15 gm Q15M PRN BUCCAL DECREASED GLUCOSE; Start 04/11/17 at 16 :30 Metoclopramide HCl (Reglan) 10 mg Q6 IV Last administered on 06/10/17 12:17; Admin Dose 10 MG; Start 04/12/17 at 18:00 Insulin Aspart (Novolog Insulin Pen) NOVOLOG *MILD* ALGORI... Q6H SC Last administered on 06/10/17 12:30; Admin Dose 1 UNIT; Start 04/15/17 at 00:00 IV Flush (NS 10 ml) 10 ml PRN PRN IV FLUSH LINE; Start 04/15/17 at 13:00 Amiodarone HCl (Cordarone) 200 mg BID GTB Last administered on 06/10/17 09:35 ; Admin Dose 200 MG; Start 04/16/17 at 13:00 Citalopram Hydrobromide (Celexa) 20 mg DAILY NGT Last administered on 09:36; Admin Dose 20 MG; Start 04/19/17 at 09:00 Hydralazine HCl (Apresoline) 20 mg Q6H PRN IV sbp ABOVE 160 Last administered on 06/03/17 04:17; Admin Dose 20 MG; Start 04/18/17 at 18:30 Chlorhexidine Gluconate (Peridex) 15 ml BID MT Last administered on 06/10/17 09:36; Admin Dose 15 ML; Start 04/22/17 at 21:00 Vitamin A/Vitamin D (Vitamin A & D Oint) 1 applic TID TOP Last administered on 06/10/17 12:32; Admin Dose 1 APPLIC; Start 04/22/17 at 21:00 Vitamin A/Vitamin D (Vitamin A & D Oint) 1 applic TID PRN TOP DRYNESS Last administered on 04/22/17 15:29; Admin Dose 1 APPLIC; Start 04/22/17 at 15:00 Acetaminophen/ Hydrocodone Bitart ([place] (5/325)) 1 tab Q6H GTB Last administered on 06/10/17 09:35; Admin Dose 1 TAB; Start 04/22/17 at 21:30 Diltiazem HCl 5 mg 5 mg Q1H PRN IV HEART RATE GREATER THAN 120 Last administered on 04/29/17 06:17; Admin Dose 5 MG; Start 04/29/17 at 05:00 Sodium Chloride 1,000 ml @ 0 mls/hr Q0M IV Last administered on 05/01/17 03: 00; Admin Dose 1,000 MLS/HR; Start 05/01/17 at 03:00 Sodium Chloride 1,000 ml @ 0 mls/hr Q0M IV Last administered on 05/01/17 04: 00; Admin Dose 1,000 MLS/HR; Start 05/01/17 at 03:30 Diltiazem HCl (Cardizem-D5W 125 Mg/125 ml Drip) 125 ml @ 5 mls/hr TITRATE IV Last administered on 05/02/17 19:11; Admin Dose 5 MLS/HR; Start 05/02/17 at 19: 00 Metoprolol Tartrate (Lopressor) 25 mg QID GTB Last administered on 06/10/17 12 :32; Admin Dose 25 MG; Start 05/07/17 at 09:00 Vitamin B Complex/ Vitamin C (Berocca) 1 cap DAILY PO Last administered on 06/10 09:36; Admin Dose 1 CAP; Start 05/13/17 at 09:00 Aspirin (Aspirin) 81 mg DAILY NGT Last administered on 06/10/17 09:35; Admin Dose 81 MG; Start 05/19/17 at 09:00 Lansoprazole (Prevacid) 30 mg BID@06,18 GTB Last administered on 06/10/17 06: 25; Admin Dose 30 MG; Start 05/20/17 at 18:00 Multivitamins (Multivitamin) 30 ml DAILY GTB Last administered on 06/10/17 09: 36; Admin Dose 30 ML; Start 05/24/17 at 09:00 Epoetin Perry (Epogen (Esrd)) 12,000 units TuThSa@17 SC Last administered on 16:34; Admin Dose 12,000 UNITS; Start 06/05/17 at 17:00 Levothyroxine Sodium (Synthroid) 150 mcg DAILY@06 GTB Last administered on 06/10 06:25; Admin Dose 150 MCG; Start 06/09/17 at 06:00 LORETO MCKEON NP Jun 10, 2017 13:06
--- NOTE | 2017-06-10 16:11 | CONS ---
Date/Time of Note Date/Time of Note DATE: 06/10/17 TIME: 16:10 Consult Date/Type/Reason Admit Date/Time Apr 11, 2017 at 11:28 Initial Consult Date 04/12/17 Type of Consultation: CARDIOLOGY Ordering Provider: NINA MACIEL DO Subjective CARDIOLOGY FOLLOW UP NOTE: D/W staff and rhythm was reviewed. pt remains in NSR. no afib overnight no chest pain or pressure or palpitations. pt is still s/p trach on vent on tele. no reported active bleeding Objective: General: s/p trach on vent HEENT: NC/AT. . oropharynx with multiple lesions. . NECK: NO JVD. no stridor. s/p trach on vent CV: RRR. systolic ejection murmur; no gallop or rubs. PULM: + mild rhonchi. no wheezes. GI: SOFT, NT, ND, no rebound or guarding s/p PEG Extremity: 2+ B/L LE edema. no clubbing. neuro: awake and responds appropriately . Psych: calm rectal: deferred Derm: multiple echymosis chest: s/p right chest HD access in place. Objective Vital Signs Date Time Temp Pulse Resp B/P Pulse Ox O2 Delivery O2 Flow Rate FiO2 06/10/17 15:38 98.4 67 19 103/56 98 06/10/17 14:47 30 06/07/17 04:00 Mechanical Ventilator Intake and Output 06/09/17 06/09/17 06/10/17 15:00 23:00 07:00 Intake Total 360 ml Output Total 80 ml Balance 280 ml Results/Medications Result Diagram: 06/10/17 0624 06/10/17 0624 Results 24 hrs Laboratory Tests Test 06/09/17 18:16 06/10/17 00:21 06/10/17 06:24 06/10/17 06:25 Bedside Glucose 114 122 140 White Blood Count 14.4 #H Red Blood Count 3.38 L Hemoglobin 10.2 L Hematocrit 33.0 L Mean Corpuscular Volume 97.6 Mean Corpuscular Hemoglobin 30.2 Mean Corpuscular Hemoglobin Concent 30.9 L Red Cell Distribution Width 19.0 H Platelet Count 298 Mean Platelet Volume 9.9 Neutrophils % Segmented Neutrophils % (Manual) 75 Band Neutrophils % (Manual) 5 H Lymphocytes % Lymphocytes % (Manual) 12 L Monocytes % Monocytes % (Manual) 4 Eosinophils % Basophils % Myelocytes % (Manual) 2 H Promyelocytes % (Manual) 2 H Nucleated Red Blood Cells % 0.3 H Neutrophils # (Manual) 10.9 H Band Neutrophils # 0.7 H Absolute Lymphocytes (Manual) 1.7 Lymphocytes # 1.7 Monocytes # 0.6 Absolute Monocytes (Manual) 0.5 Eosinophils # Basophils # Myelocytes # 0.2 H Promyelocytes # 0 Nucleated Red Blood Cells # Sodium Level 143 Potassium Level 4.1 Chloride Level 102 Carbon Dioxide Level 31 Anion Gap 14 Blood Urea Nitrogen 51 H Creatinine 1.83 H Glucose Level 124 Calcium Level 9.1 Phosphorus Level 3.1 Magnesium Level 2.6 H Test 06/10/17 12:19 Bedside Glucose 156 Medications Current Medications Metoprolol Tartrate (Lopressor) 5 mg Q4H PRN IV HR>110 Hold SBP<110 Last administered on 04/20/17 17:36; Admin Dose 5 MG; Start 04/11/17 at 13:30 Miscellaneous Information 1 ea NOTE XX ; Start 04/11/17 at 16:30 Glucose (Glutose) 15 gm Q15M PRN PO DECREASED GLUCOSE Last administered on 05/07 03:27; Admin Dose 15 GM; Start 04/11/17 at 16:30 Glucose (Glutose) 22.5 gm Q15M PRN PO DECREASED GLUCOSE; Start 04/11/17 at 16: 30 Dextrose (D50w Syringe) 25 ml Q15M PRN IV DECREASED GLUCOSE Last administered on 04/12/17 23:56; Admin Dose 25 ML; Start 04/11/17 at 16:30 Dextrose (D50w Syringe) 50 ml Q15M PRN IV DECREASED GLUCOSE; Start 04/11/17 at 16:30 Glucagon (Glucagen) 1 mg Q15M PRN IM DECREASED GLUCOSE; Start 04/11/17 at 16:30 Glucose (Glutose) 15 gm Q15M PRN BUCCAL DECREASED GLUCOSE; Start 04/11/17 at 16 :30 Metoclopramide HCl (Reglan) 10 mg Q6 IV Last administered on 06/10/17 12:17; Admin Dose 10 MG; Start 04/12/17 at 18:00 Insulin Aspart (Novolog Insulin Pen) NOVOLOG *MILD* ALGORI... Q6H SC Last administered on 06/10/17 12:30; Admin Dose 1 UNIT; Start 04/15/17 at 00:00 IV Flush (NS 10 ml) 10 ml PRN PRN IV FLUSH LINE; Start 04/15/17 at 13:00 Amiodarone HCl (Cordarone) 200 mg BID GTB Last administered on 06/10/17 09:35 ; Admin Dose 200 MG; Start 04/16/17 at 13:00 Citalopram Hydrobromide (Celexa) 20 mg DAILY NGT Last administered on 09:36; Admin Dose 20 MG; Start 04/19/17 at 09:00 Hydralazine HCl (Apresoline) 20 mg Q6H PRN IV sbp ABOVE 160 Last administered on 06/03/17 04:17; Admin Dose 20 MG; Start 04/18/17 at 18:30 Chlorhexidine Gluconate (Peridex) 15 ml BID MT Last administered on 06/10/17 09:36; Admin Dose 15 ML; Start 04/22/17 at 21:00 Vitamin A/Vitamin D (Vitamin A & D Oint) 1 applic TID TOP Last administered on 06/10/17 12:32; Admin Dose 1 APPLIC; Start 04/22/17 at 21:00 Vitamin A/Vitamin D (Vitamin A & D Oint) 1 applic TID PRN TOP DRYNESS Last administered on 04/22/17 15:29; Admin Dose 1 APPLIC; Start 04/22/17 at 15:00 Acetaminophen/ Hydrocodone Bitart ([place] (5/325)) 1 tab Q6H GTB Last administered on 06/10/17 16:04; Admin Dose 1 TAB; Start 04/22/17 at 21:30 Diltiazem HCl 5 mg 5 mg Q1H PRN IV HEART RATE GREATER THAN 120 Last administered on 04/29/17 06:17; Admin Dose 5 MG; Start 04/29/17 at 05:00 Sodium Chloride 1,000 ml @ 0 mls/hr Q0M IV Last administered on 05/01/17 03: 00; Admin Dose 1,000 MLS/HR; Start 05/01/17 at 03:00 Sodium Chloride 1,000 ml @ 0 mls/hr Q0M IV Last administered on 05/01/17 04: 00; Admin Dose 1,000 MLS/HR; Start 05/01/17 at 03:30 Diltiazem HCl (Cardizem-D5W 125 Mg/125 ml Drip) 125 ml @ 5 mls/hr TITRATE IV Last administered on 05/02/17 19:11; Admin Dose 5 MLS/HR; Start 05/02/17 at 19: 00 Metoprolol Tartrate (Lopressor) 25 mg QID GTB Last administered on 06/10/17 12 :32; Admin Dose 25 MG; Start 05/07/17 at 09:00 Vitamin B Complex/ Vitamin C (Berocca) 1 cap DAILY PO Last administered on 06/10 09:36; Admin Dose 1 CAP; Start 05/13/17 at 09:00 Aspirin (Aspirin) 81 mg DAILY NGT Last administered on 06/10/17 09:35; Admin Dose 81 MG; Start 05/19/17 at 09:00 Lansoprazole (Prevacid) 30 mg BID@06,18 GTB Last administered on 06/10/17 06: 25; Admin Dose 30 MG; Start 05/20/17 at 18:00 Multivitamins (Multivitamin) 30 ml DAILY GTB Last administered on 06/10/17 09: 36; Admin Dose 30 ML; Start 05/24/17 at 09:00 Epoetin Perry (Epogen (Esrd)) 12,000 units TuThSa@17 SC Last administered on 16:34; Admin Dose 12,000 UNITS; Start 06/05/17 at 17:00 Levothyroxine Sodium (Synthroid) 150 mcg DAILY@06 GTB Last administered on 06/10 06:25; Admin Dose 150 MCG; Start 06/09/17 at 06:00 Assessment/Plan Chief Complaint/Hosp Course 1. acute on chronic hypoxemic respiratory failure: 2. S/P NSTEMI: due to demand ischemia. 3. CHF/ fluid overload: due to diastolic heart failure and renal failure 4. moderate 5. Arrhythmia and P afib, frequent PVC: currently in NSR. 6. ANEMIA: s/p multiple transfusion 7. s/p pneumonia, . 8. s/p sepsis and shock: BP is stable now. 9. Anasarca 10. s/p cardiopulm arrest due to resp failure 11. renal failure 12. coagulopathy; resolved now. Rec: cont resp care and vent support. defer to PULM Team. correct lytes prn. CONT betablocker as tolerated. . cont thyroid supplement . cont tele monitoring HD as per renal transfuse prn, currently H/H has remained stable though. cont low dose ASA 81 mg only due to recurrent anemia. THANK YOU. Problems: FRANCISCO BLACKWOOD MD Jun 10, 2017 16:11
[2017-06-10] MEDS: EPOETIN 4000 UNITS/1 ML INJ (ESRD) SC SCH (21:09)
--- NOTE | 2017-06-10 23:38 | PN ---
Date/Time of Note Date/Time of Note DATE: 06/10/17 TIME: 23:38 Assessment/Plan Lines/Catheters IV Catheter Type (from [facility]): Perm A Cath Latif in Place (from [facility]): Yes Assessment/Plan Chief Complaint/Hosp Course 1. Cholelithiasis: Tolerating tube feeds; no abdominal pain/discomfort/bloating ; +bowel function -No surgical intervention required at this time 2. Pneumonia: Recurrent +sputum cultures; appears comfortable, no fevers, s/p abx; CXR: with nodule-possible aspirated tooth; ct chest: no foreign body -pulmonary toilet -wean as tolerated 3. Vent dependent respiratory failure: 2/2 aspiration PNA+ CHF;reintubated and extubated, coded 04/21 and 05/01; comfortable on vent -as above 4. KEYONNA: likely 2/2 septic shock; with + urine output; arranging for outpatient HD -judicious fluid management -avoid nephrotoxic agents 5. Uncontrolled Afib: s/p amiodarone drip, on oral amiodarone; episodes of Afib Now SR -medical optimization 6. Leukocytosis with lactic acidosis: 2/2 pneumonia +/- steroids vs.fungemia vs other (urine, repeat blood cultures negative); labile -per ID 7. Macrocytic anemia: chronic vs. dilutional vs. acute bleed vs. b12/folate deficiency; hh stable -monitor -Transfuse as needed 8. Electrolyte imbalance: (hyponatremia, hypokalemia); improved -electrolyte optimization 9. CHF: BNP elevated -judicious fluid management -medical optimization 10. Adrenal Insufficiency -solucortef 11. Hypothyroidism; tsh elevated -on synthroid; adjust per endocrinology 12. Hypoalbuminemia: 2/2 malnutrition +/- inflammation; decreased; tolerating tf ; -nutrition optimization -as above 13. Groin culture: cultures noted -abx per sensitivity 14. Bilateral upper and lower extremity edema: hx(+) Thrombus in upper arm; lower leg pain, doppler (-) -elevate extremities -supportive Patient seen and examined in collaboration with Dr. Justus Antonio. Thank you Problems: Exam/Review of Systems Vital Signs Vitals Vital Signs Date Time Temp Pulse Resp B/P Pulse Ox O2 Delivery O2 Flow Rate FiO2 06/10/17 22:34 71 14 99 30 06/10/17 19:03 98.5 111/62 06/07/17 04:00 Mechanical Ventilator Intake and Output 06/09/17 06/09/17 06/10/17 15:00 23:00 07:00 Intake Total 360 ml Output Total 80 ml Balance 280 ml Results Result Diagram: 06/10/17 0624 06/10/17 0624 ADDISON FREGOSO NP Jun 10, 2017 23:38
[2017-06-11] VITALS (24 sets, daily range): BP systolic 106–140; BP diastolic 50–80; PULSE 70–82; RESP 11–19
[2017-06-11] MEDS: METOCLOPRAMIDE 10 MG INJ IV SCH ×4 (00:15→17:50)
[2017-06-11] MEDS: LEVALBUTEROL (HFA) 15 GM INHALER INH SCH ×4 (01:04→20:07)
[2017-06-11] MEDS: HYDROCODONE/APAP (5/325) TAB GTB SCH ×4 (04:15→22:50)
[2017-06-11] MEDS: LANSOPRAZOLE 30 MG CAP GTB SCH ×2 (05:12→17:50)
[2017-06-11] MEDS: LEVOTHYROXINE 150 MCG TAB GTB SCH (05:12)
[2017-06-11] MEDS: INSULIN ASPART [NOVOLOG] 3 ML PEN SC SCH ×4 (06:06→17:51)
--- NOTE | 2017-06-11 08:33 | CONS ---
Date/Time of Note Date/Time of Note DATE: 06/11/17 TIME: 08:32 Consult Date/Type/Reason Admit Date/Time Apr 11, 2017 at 11:28 Initial Consult Date 04/12/17 Type of Consultation: CARDIOLOGY Ordering Provider: NINA MACIEL DO Subjective CARDIOLOGY FOLLOW UP NOTE: D/W staff and rhythm was reviewed. pt remains in NSR. no afib overnight d/w no chest pain or pressure or palpitations. pt is still s/p trach on vent on tele. no reported active bleeding s/p HD today. Objective: General: s/p trach on vent HEENT: NC/AT. . oropharynx with multiple lesions. . NECK: NO JVD. no stridor. s/p trach on vent CV: RRR. systolic ejection murmur; no gallop or rubs. PULM: + mild rhonchi. no wheezes. GI: SOFT, NT, ND, no rebound or guarding s/p PEG Extremity: 1-2+ B/L LE edema. no clubbing. neuro: awake and responds appropriately . Psych: calm rectal: deferred Derm: multiple echymosis chest: s/p right chest HD access in place. Objective Vital Signs Date Time Temp Pulse Resp B/P Pulse Ox O2 Delivery O2 Flow Rate FiO2 06/11/17 08:09 76 11 98 30 06/11/17 07:52 98.0 111/55 Intake and Output 06/10/17 06/10/17 06/11/17 15:00 23:00 07:00 Intake Total 360 ml 360 ml 330 ml Output Total 100 ml 200 ml 500 ml Balance 260 ml 160 ml -170 ml Results/Medications Result Diagram: 06/10/17 0624 06/10/17 0624 Results 24 hrs Laboratory Tests Test 06/10/17 12:19 06/10/17 18:03 06/11/17 00:16 06/11/17 06:01 Bedside Glucose 156 129 117 157 Medications Current Medications Metoprolol Tartrate (Lopressor) 5 mg Q4H PRN IV HR>110 Hold SBP<110 Last administered on 04/20/17t 17:36; Admin Dose 5 MG; Start 04/11/17 at 13:30 Miscellaneous Information 1 ea NOTE XX ; Start 04/11/17 at 16:30 Glucose (Glutose) 15 gm Q15M PRN PO DECREASED GLUCOSE Last administered on 05/07 03:27; Admin Dose 15 GM; Start 04/11/17 at 16:30 Glucose (Glutose) 22.5 gm Q15M PRN PO DECREASED GLUCOSE; Start 04/11/17 at 16: 30 Dextrose (D50w Syringe) 25 ml Q15M PRN IV DECREASED GLUCOSE Last administered on 04/12/17 23:56; Admin Dose 25 ML; Start 04/11/17 at 16:30 Dextrose (D50w Syringe) 50 ml Q15M PRN IV DECREASED GLUCOSE; Start 04/11/17 at 16:30 Glucagon (Glucagen) 1 mg Q15M PRN IM DECREASED GLUCOSE; Start 04/11/17 at 16:30 Glucose (Glutose) 15 gm Q15M PRN BUCCAL DECREASED GLUCOSE; Start 04/11/17 at 16 :30 Metoclopramide HCl (Reglan) 10 mg Q6 IV Last administered on 06/11/17 05:12; Admin Dose 10 MG; Start 04/12/17 at 18:00 Insulin Aspart (Novolog Insulin Pen) NOVOLOG *MILD* ALGORI... Q6H SC Last administered on 06/11/17 06:06; Admin Dose 1 UNIT; Start 04/15/17 at 00:00 IV Flush (NS 10 ml) 10 ml PRN PRN IV FLUSH LINE; Start 04/15/17 at 13:00 Amiodarone HCl (Cordarone) 200 mg BID GTB Last administered on 06/10/17 21:06 ; Admin Dose 200 MG; Start 04/16/17 at 13:00 Citalopram Hydrobromide (Celexa) 20 mg DAILY NGT Last administered on 09:36; Admin Dose 20 MG; Start 04/19/17 at 09:00 Hydralazine HCl (Apresoline) 20 mg Q6H PRN IV sbp ABOVE 160 Last administered on 06/03/17 04:17; Admin Dose 20 MG; Start 04/18/17 at 18:30 Chlorhexidine Gluconate (Peridex) 15 ml BID MT Last administered on 06/10/17 21:06; Admin Dose 15 ML; Start 04/22/17 at 21:00 Vitamin A/Vitamin D (Vitamin A & D Oint) 1 applic TID TOP Last administered on 06/10/17 21:05; Admin Dose 1 APPLIC; Start 04/22/17 at 21:00 Vitamin A/Vitamin D (Vitamin A & D Oint) 1 applic TID PRN TOP DRYNESS Last administered on 04/22/17 15:29; Admin Dose 1 APPLIC; Start 04/22/17 at 15:00 Acetaminophen/ Hydrocodone Bitart ([place] (5/325)) 1 tab Q6H GTB Last administered on 06/11/17 04:15; Admin Dose 1 TAB; Start 04/22/17 at 21:30 Diltiazem HCl 5 mg 5 mg Q1H PRN IV HEART RATE GREATER THAN 120 Last administered on 04/29/17 06:17; Admin Dose 5 MG; Start 04/29/17 at 05:00 Sodium Chloride 1,000 ml @ 0 mls/hr Q0M IV Last administered on 05/01/17 03: 00; Admin Dose 1,000 MLS/HR; Start 05/01/17 at 03:00 Sodium Chloride 1,000 ml @ 0 mls/hr Q0M IV Last administered on 05/01/17 04: 00; Admin Dose 1,000 MLS/HR; Start 05/01/17 at 03:30 Diltiazem HCl (Cardizem-D5W 125 Mg/125 ml Drip) 125 ml @ 5 mls/hr TITRATE IV Last administered on 05/02/17 19:11; Admin Dose 5 MLS/HR; Start 05/02/17 at 19: 00 Metoprolol Tartrate (Lopressor) 25 mg QID GTB Last administered on 06/10/17 21 :06; Admin Dose 25 MG; Start 05/07/17 at 09:00 Vitamin B Complex/ Vitamin C (Berocca) 1 cap DAILY PO Last administered on 06/10 09:36; Admin Dose 1 CAP; Start 05/13/17 at 09:00 Aspirin (Aspirin) 81 mg DAILY NGT Last administered on 06/10/17 09:35; Admin Dose 81 MG; Start 05/19/17 at 09:00 Lansoprazole (Prevacid) 30 mg BID@,18 GTB Last administered on 06/11/17 05: 12; Admin Dose 30 MG; Start 05/20/17 at 18:00 Multivitamins (Multivitamin) 30 ml DAILY GTB Last administered on 06/10/17 09: 36; Admin Dose 30 ML; Start 05/24/17 at 09:00 Epoetin Perry (Epogen (Esrd)) 12,000 units TuThSa@17 SC Last administered on 21:09; Admin Dose 12,000 UNITS; Start 06/05/17 at 17:00 Levothyroxine Sodium (Synthroid) 150 mcg DAILY@06 GTB Last administered on 06/11 05:12; Admin Dose 150 MCG; Start 06/09/17 at 06:00 Assessment/Plan Chief Complaint/Hosp Course 1. acute on chronic hypoxemic respiratory failure: 2. S/P NSTEMI: due to demand ischemia. 3. CHF/ fluid overload: due to diastolic heart failure and renal failure 4. moderate 5. Arrhythmia and P afib, frequent PVC: currently in NSR. 6. ANEMIA: s/p multiple transfusion 7. s/p pneumonia, . 8. s/p sepsis and shock: BP is stable now. 9. Anasarca 10. s/p cardiopulm arrest due to resp failure 11. renal failure 12. coagulopathy; resolved now. Rec: cont resp care and vent support. defer to PULM Team. correct lytes prn. CONT betablocker as tolerated. . cont thyroid supplement . cont tele monitoring HD as per renal transfuse prn, currently H/H has remained stable though. cont low dose ASA 81 mg only due to recurrent anemia. THANK YOU. Problems: FRANCISCO BLACKWOOD MD Jun 11, 2017 08:33
[2017-06-11] MEDS: VITAMIN A & D 5 GM OINT PACKET TOP SCH ×3 (08:39→20:20)
[2017-06-11] MEDS: CHLORHEXIDINE GLUCONATE 15 ML UD CUP MT SCH ×2 (08:39→20:20)
[2017-06-11] MEDS: CITALOPRAM 20 MG TAB NGT SCH (08:39)
[2017-06-11] MEDS: ASPIRIN 81 MG TAB NGT SCH (08:40)
[2017-06-11] MEDS: AMIODARONE 200 MG TAB GTB SCH ×2 (08:40→20:22)
[2017-06-11] MEDS: METOPROLOL 25 MG TAB GTB SCH ×4 (08:41→20:21)
[2017-06-11] MEDS: MULTIVITAMINS 30 ML CUP GTB SCH (08:41)
[2017-06-11] MEDS: VITAMIN B COMPLEX/VIT C CAP PO SCH (08:46)
--- NOTE | 2017-06-11 11:00 | PN ---
DATE: 06/11/2017 SUBJECTIVE DATA: The patient is stable. No acute events overnight. The patient is currently receiving hemodialysis. OBJECTIVE DATA: VITAL SIGNS: Blood pressure is 111/55, respirations 13, pulse 78, temperature 98.0. HEENT: Head is normocephalic. NECK: Supple. HEART: Regular rate. LUNGS: Show diminished breath sounds at the base. ABDOMEN: Soft, nontender to palpation. No rebound or guarding. EXTREMITIES: Negative for clubbing, cyanosis. Positive edema. DERMATOLOGIC: Clean. No rashes. MUSCULOSKELETAL: No joint effusion. NEUROLOGIC: No change in exam. MEDICATIONS: Reviewed. LABORATORY AND DIAGNOSTIC DATA: Currently pending. ASSESSMENT AND PLAN: 1. Ventilatory-respiratory failure. Vent settings have been reviewed. ABGs reviewed. Continue to monitor. 2. History of thyroid cancer with tracheomalacia. The patient has been evaluated by ENT. Continue to monitor. 3. End-stage renal disease. The patient is currently on hemodialysis, awaiting outpatient dialysis arrangement. 4. Volume overload. Continue ultrafiltration with dialysis. 5. Anemia. Continue to monitor H and H levels. We will give Epogen with dialysis. 6. Sepsis, status post shock. The patient is completing antibiotic course. 7. Encephalopathy. Etiology is toxic metabolic. Continue to monitor. 8. Hypothyroidism. Continue Synthroid. 9. Hyponatremia, resolved. 10. Hyperkalemia. Continue to monitor. 11. Dysphagia, status post percutaneous endoscopic gastrostomy. Continue tube feeding. 12. Status post gastrointestinal bleed. 13. Adrenal insufficiency. Continue steroid regimen. 14. Gastrointestinal and deep venous thrombosis prophylaxis. Continue proton pump inhibitor and sequential leg squeezes. Dictated By: Abebe Valderrama DO /marquita/laith /Document#: [id number]
--- NOTE | 2017-06-11 13:57 | CONS ---
Date/Time of Note Date/Time of Note DATE: 06/11/17 TIME: 13:55 Assessment/Plan Assessment/Plan Additional Assessment/Plan Ventilator setting; CPAP pressure support 12, 30% FiO2. Next Assessment and recommendations; 1. Patient admitted with sepsis and pneumonia off antibiotics now. 2. 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 History of redo tracheostomy 2. 3. History of COPD. 4. End-stage renal disease, on hemodialysis. 5. Severe generalized deconditioning. 6. Anemia. Switch the patient to T-piece as tolerated. Continue current supportive care. Consultation Date/Type/Reason Admit Date/Time Apr 11, 2017 at 11:28 Initial Consult Date 05/01/17 Type of Consultation: Pulmonary Referring Provider: NINA MACIEL DO 24 HR Interval Summary Free Text/Dictation Patient condition stable. Doing very well on CPAP. Has remained hemodynamically stable. General exam; elderly woman, awake, on ventilator via tracheostomy, currently in no distress. Exam/Review of Systems Vital Signs Vitals Vital Signs Date Time Temp Pulse Resp B/P Pulse Ox O2 Delivery O2 Flow Rate FiO2 06/11/17 13:01 98.0 77 16 133/71 98 06/11/17 12:39 10.0 40 Intake and Output 06/10/17 06/10/17 06/11/17 15:00 23:00 07:00 Intake Total 360 ml 360 ml 330 ml Output Total 100 ml 200 ml 500 ml Balance 260 ml 160 ml -170 ml Exam HEENT exam; supple neck, no JVD. No lymphadenopathy. Midline trachea. No thyromegaly. Patient has fair dentition. Tracheostomy in place. Chest exam; clear to auscultation. S1-S2 audible, no murmurs. Regular rhythm. Abdomen exam; soft, no organomegaly. G-tube in place. Bowel sounds audible. Extremity exam; 2+ edema involving lower extremities. Trace edema involving upper extremities bilaterally. AND [employer] CR[employer]RE exam; no focal motor deficit, patient however having significant generalized weakness. Results Result Diagram: 06/10/17 0624 06/10/17 0624 Results 24 hrs Laboratory Tests Test 06/10/17 18:03 06/11/17 00:16 06/11/17 06:01 06/11/17 12:28 Bedside Glucose 129 117 157 148 Medications Medications Current Medications Metoprolol Tartrate (Lopressor) 5 mg Q4H PRN IV HR>110 Hold SBP<110 Last administered on 04/20/17 17:36; Admin Dose 5 MG; Start 04/11/17 at 13:30 Miscellaneous Information 1 ea NOTE XX ; Start 04/11/17 at 16:30 Glucose (Glutose) 15 gm Q15M PRN PO DECREASED GLUCOSE Last administered on 05/07 03:27; Admin Dose 15 GM; Start 04/11/17 at 16:30 Glucose (Glutose) 22.5 gm Q15M PRN PO DECREASED GLUCOSE; Start 04/11/17 at 16: 30 Dextrose (D50w Syringe) 25 ml Q15M PRN IV DECREASED GLUCOSE Last administered on 04/12/17 23:56; Admin Dose 25 ML; Start 04/11/17 at 16:30 Dextrose (D50w Syringe) 50 ml Q15M PRN IV DECREASED GLUCOSE; Start 04/11/17 at 16:30 Glucagon (Glucagen) 1 mg Q15M PRN IM DECREASED GLUCOSE; Start 04/11/17 at 16:30 Glucose (Glutose) 15 gm Q15M PRN BUCCAL DECREASED GLUCOSE; Start 04/11/17 at 16 :30 Metoclopramide HCl (Reglan) 10 mg Q6 IV Last administered on 06/11/17 12:30; Admin Dose 10 MG; Start 04/12/17 at 18:00 Insulin Aspart (Novolog Insulin Pen) NOVOLOG *MILD* ALGORI... Q6H SC Last administered on 06/11/17 12:35; Admin Dose 1 UNIT; Start 04/15/17 at 00:00 IV Flush (NS 10 ml) 10 ml PRN PRN IV FLUSH LINE; Start 04/15/17 at 13:00 Amiodarone HCl (Cordarone) 200 mg BID GTB Last administered on 06/11/17 08:40 ; Admin Dose 200 MG; Start 04/16/17 at 13:00 Citalopram Hydrobromide (Celexa) 20 mg DAILY NGT Last administered on 08:39; Admin Dose 20 MG; Start 04/19/17 at 09:00 Hydralazine HCl (Apresoline) 20 mg Q6H PRN IV sbp ABOVE 160 Last administered on 06/03/17 04:17; Admin Dose 20 MG; Start 04/18/17 at 18:30 Chlorhexidine Gluconate (Peridex) 15 ml BID MT Last administered on 06/11/17 08:39; Admin Dose 15 ML; Start 04/22/17 at 21:00 Vitamin A/Vitamin D (Vitamin A & D Oint) 1 applic TID TOP Last administered on 06/11/17 12:30; Admin Dose 1 APPLIC; Start 04/22/17 at 21:00 Vitamin A/Vitamin D (Vitamin A & D Oint) 1 applic TID PRN TOP DRYNESS Last administered on 04/22/17 15:29; Admin Dose 1 APPLIC; Start 04/22/17 at 15:00 Acetaminophen/ Hydrocodone Bitart ([place] (5/325)) 1 tab Q6H GTB Last administered on 06/11/17 08:46; Admin Dose 1 TAB; Start 04/22/17 at 21:30 Diltiazem HCl 5 mg 5 mg Q1H PRN IV HEART RATE GREATER THAN 120 Last administered on 04/29/17 06:17; Admin Dose 5 MG; Start 04/29/17 at 05:00 Sodium Chloride 1,000 ml @ 0 mls/hr Q0M IV Last administered on 05/01/17 03: 00; Admin Dose 1,000 MLS/HR; Start 05/01/17 at 03:00 Sodium Chloride 1,000 ml @ 0 mls/hr Q0M IV Last administered on 05/01/17 04: 00; Admin Dose 1,000 MLS/HR; Start 05/01/17 at 03:30 Diltiazem HCl (Cardizem-D5W 125 Mg/125 ml Drip) 125 ml @ 5 mls/hr TITRATE IV Last administered on 05/02/17 19:11; Admin Dose 5 MLS/HR; Start 05/02/17 at 19: 00 Metoprolol Tartrate (Lopressor) 25 mg QID GTB Last administered on 06/11/17 12 :30; Admin Dose 25 MG; Start 05/07/17 at 09:00 Vitamin B Complex/ Vitamin C (Berocca) 1 cap DAILY PO Last administered on 06/11 08:46; Admin Dose 1 CAP; Start 05/13/17 at 09:00 Aspirin (Aspirin) 81 mg DAILY NGT Last administered on 06/11/17 08:40; Admin Dose 81 MG; Start 05/19/17 at 09:00 Lansoprazole (Prevacid) 30 mg BID@,18 GTB Last administered on 06/11/17 05: 12; Admin Dose 30 MG; Start 05/20/17 at 18:00 Multivitamins (Multivitamin) 30 ml DAILY GTB Last administered on 06/11/17 08: 41; Admin Dose 30 ML; Start 05/24/17 at 09:00 Epoetin Perry (Epogen (Esrd)) 12,000 units TuThSa@17 SC Last administered on 21:09; Admin Dose 12,000 UNITS; Start 06/05/17 at 17:00 Levothyroxine Sodium (Synthroid) 150 mcg DAILY@06 GTB Last administered on 06/11 05:12; Admin Dose 150 MCG; Start 06/09/17 at 06:00 EMILIANO HICKS Jun 11, 2017 13:57
--- NOTE | 2017-06-11 14:07 | CONS ---
Date/Time of Note Date/Time of Note DATE: 06/11/17 TIME: 14:07 Assessment/Plan Assessment/Plan Chief Complaint/Hosp Course SUBJECTIVE: No acute events overnight. Awake, denies pain, looks comfortable, afebrile Indwelling: Trach, PEG Latif, RIJ p-cath 06/05 PHYSICAL EXAMINATION: This is a fragile, chronically ill- appearing, elderly woman who is awake, in no distress. HEENT: Head atraumatic, normocephalic. Sclerae anicteric. Buccal mucosa dry. NECK: Supple. Tracheostomy present. CHEST: Chest rise symmetric. Breath sounds diminished at bases. HEART: S1, S2. ABDOMEN: Soft. Bowel sounds present. EXTREMITIES: Without cyanosis. SKIN: Positive for anasarca. ASSESSMENT: 1. Status post septic shock, urinary tract infection, pneumonia. 2. Ccyji-rp-fuacfuw respiratory failure/HD dependent, s/p perm-cath. 3. Status post fungemia. 4. Rkxra-wj-znlzshq kidney disease. 5. History of Clostridium difficile colitis. 6. Left upper extremity deep vein thrombosis. 7. Leukocytosis PLAN: The patient remains stable, off abx, will monitor white blood cell count , repeat cultures as needed DW staff Problems: Consultation Date/Type/Reason Admit Date/Time Apr 11, 2017 at 11:28 Initial Consult Date 04/12/17 Type of Consultation: id Referring Provider: NINA MACIEL DO Exam/Review of Systems Vital Signs Vitals Vital Signs Date Time Temp Pulse Resp B/P Pulse Ox O2 Delivery O2 Flow Rate FiO2 06/11/17 13:01 98.0 77 16 133/71 98 06/11/17 12:39 10.0 40 Intake and Output 06/10/17 06/10/17 06/11/17 15:00 23:00 07:00 Intake Total 360 ml 360 ml 330 ml Output Total 100 ml 200 ml 500 ml Balance 260 ml 160 ml -170 ml Results Result Diagram: 06/10/17 0624 06/10/17 0624 Results 24 hrs Laboratory Tests Test 06/10/17 18:03 06/11/17 00:16 06/11/17 06:01 06/11/17 12:28 Bedside Glucose 129 117 157 148 Medications Medications Current Medications Metoprolol Tartrate (Lopressor) 5 mg Q4H PRN IV HR>110 Hold SBP<110 Last administered on 04/20/17 17:36; Admin Dose 5 MG; Start 04/11/17 at 13:30 Miscellaneous Information 1 ea NOTE XX ; Start 04/11/17 at 16:30 Glucose (Glutose) 15 gm Q15M PRN PO DECREASED GLUCOSE Last administered on 05/07 03:27; Admin Dose 15 GM; Start 04/11/17 at 16:30 Glucose (Glutose) 22.5 gm Q15M PRN PO DECREASED GLUCOSE; Start 04/11/17 at 16: 30 Dextrose (D50w Syringe) 25 ml Q15M PRN IV DECREASED GLUCOSE Last administered on 04/12/17 23:56; Admin Dose 25 ML; Start 04/11/17 at 16:30 Dextrose (D50w Syringe) 50 ml Q15M PRN IV DECREASED GLUCOSE; Start 04/11/17 at 16:30 Glucagon (Glucagen) 1 mg Q15M PRN IM DECREASED GLUCOSE; Start 04/11/17 at 16:30 Glucose (Glutose) 15 gm Q15M PRN BUCCAL DECREASED GLUCOSE; Start 04/11/17 at 16 :30 Metoclopramide HCl (Reglan) 10 mg Q6 IV Last administered on 06/11/17 12:30; Admin Dose 10 MG; Start 04/12/17 at 18:00 Insulin Aspart (Novolog Insulin Pen) NOVOLOG *MILD* ALGORI... Q6H SC Last administered on 06/11/17 12:35; Admin Dose 1 UNIT; Start 04/15/17 at 00:00 IV Flush (NS 10 ml) 10 ml PRN PRN IV FLUSH LINE; Start 04/15/17 at 13:00 Amiodarone HCl (Cordarone) 200 mg BID GTB Last administered on 06/11/17 08:40 ; Admin Dose 200 MG; Start 04/16/17 at 13:00 Citalopram Hydrobromide (Celexa) 20 mg DAILY NGT Last administered on 08:39; Admin Dose 20 MG; Start 04/19/17 at 09:00 Hydralazine HCl (Apresoline) 20 mg Q6H PRN IV sbp ABOVE 160 Last administered on 06/03/17 04:17; Admin Dose 20 MG; Start 04/18/17 at 18:30 Chlorhexidine Gluconate (Peridex) 15 ml BID MT Last administered on 06/11/17 08:39; Admin Dose 15 ML; Start 04/22/17 at 21:00 Vitamin A/Vitamin D (Vitamin A & D Oint) 1 applic TID TOP Last administered on 06/11/17 12:30; Admin Dose 1 APPLIC; Start 04/22/17 at 21:00 Vitamin A/Vitamin D (Vitamin A & D Oint) 1 applic TID PRN TOP DRYNESS Last administered on 04/22/17 15:29; Admin Dose 1 APPLIC; Start 04/22/17 at 15:00 Acetaminophen/ Hydrocodone Bitart ([place] (5/325)) 1 tab Q6H GTB Last administered on 06/11/17 08:46; Admin Dose 1 TAB; Start 04/22/17 at 21:30 Diltiazem HCl 5 mg 5 mg Q1H PRN IV HEART RATE GREATER THAN 120 Last administered on 04/29/17 06:17; Admin Dose 5 MG; Start 04/29/17 at 05:00 Sodium Chloride 1,000 ml @ 0 mls/hr Q0M IV Last administered on 05/01/17 03: 00; Admin Dose 1,000 MLS/HR; Start 05/01/17 at 03:00 Sodium Chloride 1,000 ml @ 0 mls/hr Q0M IV Last administered on 05/01/17 04: 00; Admin Dose 1,000 MLS/HR; Start 05/01/17 at 03:30 Diltiazem HCl (Cardizem-D5W 125 Mg/125 ml Drip) 125 ml @ 5 mls/hr TITRATE IV Last administered on 05/02/17 19:11; Admin Dose 5 MLS/HR; Start 05/02/17 at 19: 00 Metoprolol Tartrate (Lopressor) 25 mg QID GTB Last administered on 06/11/17 12 :30; Admin Dose 25 MG; Start 05/07/17 at 09:00 Vitamin B Complex/ Vitamin C (Berocca) 1 cap DAILY PO Last administered on 06/11 08:46; Admin Dose 1 CAP; Start 05/13/17 at 09:00 Aspirin (Aspirin) 81 mg DAILY NGT Last administered on 06/11/17 08:40; Admin Dose 81 MG; Start 05/19/17 at 09:00 Lansoprazole (Prevacid) 30 mg BID@06,18 GTB Last administered on 06/11/17 05: 12; Admin Dose 30 MG; Start 05/20/17 at 18:00 Multivitamins (Multivitamin) 30 ml DAILY GTB Last administered on 06/11/17 08: 41; Admin Dose 30 ML; Start 05/24/17 at 09:00 Epoetin Perry (Epogen (Esrd)) 12,000 units TuThSa@ SC Last administered on 21:09; Admin Dose 12,000 UNITS; Start 06/05/17 at 17:00 Levothyroxine Sodium (Synthroid) 150 mcg DAILY@06 GTB Last administered on 06/11 05:12; Admin Dose 150 MCG; Start 06/09/17 at 06:00 LORETO MCKEON NP Jun 11, 2017 14:07
[2017-06-12] VITALS (13 sets, daily range): BP systolic 121–166; BP diastolic 61–83; PULSE 68–78; RESP 16–21
--- NOTE | 2017-06-12 00:01 | PN ---
Date/Time of Note Date/Time of Note DATE: 06/11/17 TIME: 10:00 Assessment/Plan Lines/Catheters IV Catheter Type (from [facility]): perm a cath Latif in Place (from [facility]): Yes Assessment/Plan Chief Complaint/Hosp Course 1. Cholelithiasis: Tolerating tube feeds; no abdominal pain/discomfort/bloating ; +bowel function -No surgical intervention required at this time 2. Pneumonia: Recurrent +sputum cultures; appears comfortable, no fevers, s/p abx; CXR: with nodule-possible aspirated tooth; ct chest: no foreign body -pulmonary toilet -wean as tolerated 3. Vent dependent respiratory failure: 2/2 aspiration PNA+ CHF;reintubated and extubated, coded 04/21 and 05/01; comfortable on vent -as above 4. KEYONNA: likely 2/2 septic shock; with + urine output; arranging for outpatient HD -judicious fluid management -avoid nephrotoxic agents 5. Uncontrolled Afib: s/p amiodarone drip, on oral amiodarone; episodes of Afib Now SR -medical optimization 6. Leukocytosis with lactic acidosis: 2/2 pneumonia +/- steroids vs.fungemia vs other (urine, repeat blood cultures negative); labile -per ID 7. Macrocytic anemia: chronic vs. dilutional vs. acute bleed vs. b12/folate deficiency; hh stable -monitor -Transfuse as needed 8. Electrolyte imbalance: (hyponatremia, hypokalemia); improved -electrolyte optimization 9. CHF: BNP elevated -judicious fluid management -medical optimization 10. Adrenal Insufficiency -solucortef 11. Hypothyroidism; tsh elevated -on synthroid; adjust per endocrinology 12. Hypoalbuminemia: 2/2 malnutrition +/- inflammation; decreased; tolerating tf ; -nutrition optimization -as above 13. Groin culture: cultures noted -abx per sensitivity 14. Bilateral upper and lower extremity edema: hx(+) Thrombus in upper arm; lower leg pain, doppler (-) -elevate extremities -supportive Patient seen and examined in collaboration with Dr. Justus Antonio. Thank you Problems: Exam/Review of Systems Vital Signs Vitals Vital Signs Date Time Temp Pulse Resp B/P Pulse Ox O2 Delivery O2 Flow Rate FiO2 06/11/17 23:12 10.0 40 06/11/17 20:13 97.7 68 19 135/68 99 Intake and Output 06/11/17 06/11/17 06/12/17 15:00 23:00 07:00 Intake Total 600 ml Output Total 3600 ml Balance -3000 ml Results Result Diagram: 06/10/1724 06/10/17 0624 ADDISON FREGOSO NP Jun 12, 2017 00:01
[2017-06-12] MEDS: METOCLOPRAMIDE 10 MG INJ IV SCH ×5 (00:44→23:32)
[2017-06-12] MEDS: LEVALBUTEROL (HFA) 15 GM INHALER INH SCH ×3 (01:04→19:54)
[2017-06-12] MEDS: HYDROCODONE/APAP (5/325) TAB GTB SCH ×4 (03:39→21:32)
[2017-06-12] MEDS: LANSOPRAZOLE 30 MG CAP GTB SCH ×2 (05:22→17:43)
[2017-06-12] MEDS: LEVOTHYROXINE 150 MCG TAB GTB SCH (05:23)
[2017-06-12] MEDS: INSULIN ASPART [NOVOLOG] 3 ML PEN SC SCH ×5 (06:00→23:31)
[2017-06-12 07:35] LABS: ABNORMAL IP MESSAGE 1; BASOPHIL # 0.1 10^3/ul (0.0-0.1); BASOPHILS % 0.5 % (0.0-2.0); EOSINOPHILS # 0.3 10^3/ul (0.0-0.5); EOSINOPHILS % 1.9 % (0.0-7.0); HEMATOCRIT 32.2 % (37.0-47.0); HEMOGLOBIN 10.2 g/dl (12.0-16.0); LYMPHOCYTES # 1.3 10^3/ul (0.8-2.9); LYMPHOCYTES % 8.3 % (15.0-51.0); MEAN CORPUSCULAR HEMOGLOBIN 31.5 pg (29.0-33.0); MEAN CORPUSCULAR HGB CONC 31.7 g/dl (32.0-37.0); MEAN CORPUSCULAR VOLUME 99.4 fl (82.0-101.0); MEAN PLATELET VOLUME 9.8 fl (7.4-10.4); MONOCYTE # 1.3 10^3/ul (0.3-0.9); MONOCYTES % 8.2 % (0.0-11.0); NUCLEATED RED BLOOD CELLS # 0.1 10^3/ul (0.0-0.0); NUCLEATED RED BLOOD CELLS% 0.3 /100WBC (0.0-0.0); PLATELET COUNT 346 10^3/UL (140-415); RED BLOOD COUNT 3.24 10^6/ul (4.20-5.40); RED CELL DISTRIBUTION WIDTH 18.5 % (11.5-14.5); WHITE BLOOD COUNT 15.3 10^3/ul (4.8-10.8)
[2017-06-12 07:49] LABS: POSITIVE DIFF @See below
[2017-06-12 08:08] LABS: CREATININE 1.74 mg/dl (0.44-1.00); MAGNESIUM 2.5 mg/dl (1.7-2.5); PHOSPHORUS 2.8 mg/dl (2.5-4.9); POTASSIUM 3.7 mmol/L (3.5-5.1)
--- NOTE | 2017-06-12 08:16 | CONS ---
Date/Time of Note Date/Time of Note DATE: 06/12/17 TIME: 08:15 Consult Date/Type/Reason Admit Date/Time Apr 11, 2017 at 11:28 Initial Consult Date 04/12/17 Type of Consultation: CARDIOLOGY Ordering Provider: NINA MACIEL DO Subjective CARDIOLOGY FOLLOW UP NOTE: D/W staff and rhythm was reviewed. pt remains in NSR. no afib overnight d/w no reports of any chest pain or pressure or palpitations. pt is still s/p trach . no reported active bleeding Objective: General: s/p trach on O2 now. HEENT: NC/AT. . oropharynx with multiple lesions. . NECK: NO JVD. no stridor. s/p trach on vent CV: RRR. systolic ejection murmur; no gallop or rubs. PULM: + mild rhonchi. no wheezes. GI: SOFT, NT, ND, no rebound or guarding s/p PEG Extremity: 1-2+ B/L LE edema. no clubbing. neuro: sleeping comfortably . Psych: calm rectal: deferred Derm: multiple echymosis chest: s/p right chest HD access in place Objective Vital Signs Date Time Temp Pulse Resp B/P Pulse Ox O2 Delivery O2 Flow Rate FiO2 06/12/17 07:58 98.0 79 18 133/66 96 06/12/17 07:25 T Tube 40 06/12/17 06:13 10.0 Intake and Output 06/11/17 06/11/17 06/12/17 14:59 22:59 06:59 Intake Total 600 ml 330 ml Output Total 3600 ml 250 ml Balance -3000 ml 80 ml Results/Medications Result Diagram: 06/12/17 0612 06/12/17 0612 Results 24 hrs Laboratory Tests Test 06/11/17 12:28 06/11/17 17:00 06/12/17 00:42 06/12/17 06:02 Bedside Glucose 148 102 123 128 Test 06/12/17 06:12 White Blood Count 15.3 H Red Blood Count 3.24 L Hemoglobin 10.2 L Hematocrit 32.2 L Mean Corpuscular Volume 99.4 Mean Corpuscular Hemoglobin 31.5 Mean Corpuscular Hemoglobin Concent 31.7 L Red Cell Distribution Width 18.5 H Platelet Count 346 Mean Platelet Volume 9.8 Neutrophils % 71.0 Lymphocytes % 8.3 L Monocytes % 8.2 Eosinophils % 1.9 Basophils % 0.5 Nucleated Red Blood Cells % 0.3 H Neutrophils # (Manual) 10.9 H Lymphocytes # 1.3 Monocytes # 1.3 H Eosinophils # 0.3 Basophils # 0.1 Nucleated Red Blood Cells # 0.1 H Sodium Level 145 H Potassium Level 3.7 Chloride Level 104 Carbon Dioxide Level 30 Anion Gap 15 Blood Urea Nitrogen 45 H Creatinine 1.74 H Glucose Level 125 Calcium Level 9.0 Phosphorus Level 2.8 Magnesium Level 2.5 Medications Current Medications Metoprolol Tartrate (Lopressor) 5 mg Q4H PRN IV HR>110 Hold SBP<110 Last administered on 04/20/17 17:36; Admin Dose 5 MG; Start 04/11/17 at 13:30 Miscellaneous Information 1 ea NOTE XX ; Start 04/11/17 at 16:30 Glucose (Glutose) 15 gm Q15M PRN PO DECREASED GLUCOSE Last administered on 05/07 03:27; Admin Dose 15 GM; Start 04/11/17 at 16:30 Glucose (Glutose) 22.5 gm Q15M PRN PO DECREASED GLUCOSE; Start 04/11/17 at 16: 30 Dextrose (D50w Syringe) 25 ml Q15M PRN IV DECREASED GLUCOSE Last administered on 04/12/17 23:56; Admin Dose 25 ML; Start 04/11/17 at 16:30 Dextrose (D50w Syringe) 50 ml Q15M PRN IV DECREASED GLUCOSE; Start 04/11/17 at 16:30 Glucagon (Glucagen) 1 mg Q15M PRN IM DECREASED GLUCOSE; Start 04/11/17 at 16:30 Glucose (Glutose) 15 gm Q15M PRN BUCCAL DECREASED GLUCOSE; Start 04/11/17 at 16 :30 Metoclopramide HCl (Reglan) 10 mg Q6 IV Last administered on 06/12/17 05:22; Admin Dose 10 MG; Start 04/12/17 at 18:00 Insulin Aspart (Novolog Insulin Pen) NOVOLOG *MILD* ALGORI... Q6H SC Last administered on 06/11/17 12:35; Admin Dose 1 UNIT; Start 04/15/17 at 00:00 IV Flush (NS 10 ml) 10 ml PRN PRN IV FLUSH LINE; Start 04/15/17 at 13:00 Amiodarone HCl (Cordarone) 200 mg BID GTB Last administered on 06/11/17 20:22 ; Admin Dose 200 MG; Start 04/16/17 at 13:00 Citalopram Hydrobromide (Celexa) 20 mg DAILY NGT Last administered on 08:39; Admin Dose 20 MG; Start 04/19/17 at 09:00 Hydralazine HCl (Apresoline) 20 mg Q6H PRN IV sbp ABOVE 160 Last administered on 06/03/17 04:17; Admin Dose 20 MG; Start 04/18/17 at 18:30 Chlorhexidine Gluconate (Peridex) 15 ml BID MT Last administered on 06/11/17 20:20; Admin Dose 15 ML; Start 04/22/17 at 21:00 Vitamin A/Vitamin D (Vitamin A & D Oint) 1 applic TID TOP Last administered on 06/11/17 20:20; Admin Dose 1 APPLIC; Start 04/22/17 at 21:00 Vitamin A/Vitamin D (Vitamin A & D Oint) 1 applic TID PRN TOP DRYNESS Last administered on 04/22/17 15:29; Admin Dose 1 APPLIC; Start 04/22/17 at 15:00 Acetaminophen/ Hydrocodone Bitart ([place] (5/325)) 1 tab Q6H GTB Last administered on 06/12/17 03:39; Admin Dose 1 TAB; Start 04/22/17 at 21:30 Diltiazem HCl 5 mg 5 mg Q1H PRN IV HEART RATE GREATER THAN 120 Last administered on 04/29/17 06:17; Admin Dose 5 MG; Start 04/29/17 at 05:00 Sodium Chloride 1,000 ml @ 0 mls/hr Q0M IV Last administered on 05/01/17 03: 00; Admin Dose 1,000 MLS/HR; Start 05/01/17 at 03:00 Sodium Chloride 1,000 ml @ 0 mls/hr Q0M IV Last administered on 05/01/17 04: 00; Admin Dose 1,000 MLS/HR; Start 05/01/17 at 03:30 Diltiazem HCl (Cardizem-D5W 125 Mg/125 ml Drip) 125 ml @ 5 mls/hr TITRATE IV Last administered on 05/02/17 19:11; Admin Dose 5 MLS/HR; Start 05/02/17 at 19: 00 Metoprolol Tartrate (Lopressor) 25 mg QID GTB Last administered on 06/11/17 20 :21; Admin Dose 25 MG; Start 05/07/17 at 09:00 Vitamin B Complex/ Vitamin C (Berocca) 1 cap DAILY PO Last administered on 06/11 08:46; Admin Dose 1 CAP; Start 05/13/17 at 09:00 Aspirin (Aspirin) 81 mg DAILY NGT Last administered on 06/11/17 08:40; Admin Dose 81 MG; Start 05/19/17 at 09:00 Lansoprazole (Prevacid) 30 mg BID@06,18 GTB Last administered on 06/12/17 05: 22; Admin Dose 30 MG; Start 05/20/17 at 18:00 Multivitamins (Multivitamin) 30 ml DAILY GTB Last administered on 06/11/17 08: 41; Admin Dose 30 ML; Start 05/24/17 at 09:00 Epoetin Perry (Epogen (Esrd)) 12,000 units TuThSa@17 SC Last administered on 21:09; Admin Dose 12,000 UNITS; Start 06/05/17 at 17:00 Levothyroxine Sodium (Synthroid) 150 mcg DAILY@06 GTB Last administered on 06/12 05:23; Admin Dose 150 MCG; Start 06/09/17 at 06:00 Assessment/Plan Chief Complaint/Hosp Course 1. acute on chronic hypoxemic respiratory failure: 2. S/P NSTEMI: due to demand ischemia. 3. CHF/ fluid overload: due to diastolic heart failure and renal failure 4. moderate 5. Arrhythmia and P afib, frequent PVC: currently in NSR. 6. ANEMIA: s/p multiple transfusion 7. s/p pneumonia, . 8. s/p sepsis and shock: BP is stable now. 9. Anasarca 10. s/p cardiopulm arrest due to resp failure 11. renal failure 12. coagulopathy; resolved now. Rec: cont resp care and vent support. defer to PULM Team. currently on weaning protocol correct lytes prn. CONT betablocker as tolerated. . cont thyroid supplement . cont tele monitoring HD as per renal transfuse prn, currently H/H has remained stable though. cont low dose ASA 81 mg only due to recurrent anemia. THANK YOU. Problems: FRANCISCO BLACKWOOD MD Jun 12, 2017 08:16
[2017-06-12] MEDS: MULTIVITAMINS 30 ML CUP GTB SCH (08:24)
[2017-06-12] MEDS: CHLORHEXIDINE GLUCONATE 15 ML UD CUP MT SCH ×2 (08:24→21:29)
[2017-06-12] MEDS: VITAMIN A & D 5 GM OINT PACKET TOP SCH ×3 (08:25→21:32)
[2017-06-12] MEDS: VITAMIN B COMPLEX/VIT C CAP PO SCH (08:25)
[2017-06-12] MEDS: CITALOPRAM 20 MG TAB NGT SCH (08:25)
[2017-06-12] MEDS: ASPIRIN 81 MG TAB NGT SCH (08:25)
[2017-06-12] MEDS: AMIODARONE 200 MG TAB GTB SCH ×2 (08:26→21:34)
[2017-06-12] MEDS: METOPROLOL 25 MG TAB GTB SCH ×4 (08:26→21:34)
--- NOTE | 2017-06-12 09:28 | PN ---
DATE: 06/12/2017 SUBJECTIVE DATA: The patient is stable. No events overnight. No fevers, chills, nausea, vomiting. OBJECTIVE DATA: VITAL SIGNS: Blood pressure is 133/66, respiration 18, pulse 79, temperature 98.0. HEENT: Head is normocephalic. NECK: Supple. HEART: Regular rate. LUNGS: Diminished breath sounds at the base. ABDOMEN: Soft, nontender to palpation. No guarding. EXTREMITIES: Negative for clubbing, cyanosis. Positive edema. DERMATOLOGIC: No rashes. MUSCULOSKELETAL: No joint effusion. NEUROLOGIC: No change in exam. MEDICATIONS: Reviewed. LABORATORY AND DIAGNOSTIC DATA: White count 13.3, hemoglobin 10.2, hematocrit 32.2, platelet count is 346. Sodium 145, potassium 3.7, chloride 104, BUN 45, creatinine 1.74. ASSESSMENT AND PLAN: 1. Ventilatory respiratory failure events failure. Vent settings have been reviewed. ABGs reviewed. Continue to monitor. 2. History of thyroid cancer with tracheomalacia. The patient is followed by ENT. Continue to monitor. 3. End-stage renal disease. The patient is currently on intermittent dialysis. 4. Volume overload. Continue ultrafiltration dialysis. 5. Anemia. Monitor. Monitor H and H levels. Continue Epogen. 6. Sepsis, status post shock. The patient is completing antibiotic course. 7. Encephalopathy. Etiology is toxic metabolic. Continue to monitor. 8. Hypothyroidism. Continue Synthroid. 9. Hypernatremia. Will start the patient on free water flushes. 10. Hypokalemia, resolved. 11. Dysphagia, status post percutaneous endoscopic gastrostomy. Continue tube feeding. 12. Status post gastrointestinal bleed. 13. Adrenal insufficiency. Continue to monitor. 14. Gastrointestinal and deep venous thrombosis prophylaxis. Dictated By: Abebe Valderrama DO /marquita/anne-marie /Document#: [id number]
--- NOTE | 2017-06-12 10:32 | CONS ---
Date/Time of Note Date/Time of Note DATE: 06/12/17 TIME: 10:28 Assessment/Plan Assessment/Plan Additional Assessment/Plan Assessment and recommendations; 1. Patient admitted with pneumonia off antibiotics now. 2. Chronic respiratory failure, patient not doing very well on T piece. 3. End-stage renal disease, on hemodialysis. 4. COPD. 5. Generalized deconditioning. 6. Anemia. 7. Remote history of glossal cancer. 8. Status post redo tracheostomy 2. Continue current treatment. Consider discharge. Consultation Date/Type/Reason Admit Date/Time Apr 11, 2017 at 11:28 Initial Consult Date 05/01/17 Type of Consultation: Pulmonary Referring Provider: NINA MACIEL DO 24 HR Interval Summary Free Text/Dictation Patient's condition is stable. Remains awake and alert. Has been weaned down to T-piece and patient is doing very well. General exam; elderly woman, awake alert. Currently in no distress. Exam/Review of Systems Vital Signs Vitals Vital Signs Date Time Temp Pulse Resp B/P Pulse Ox O2 Delivery O2 Flow Rate FiO2 06/12/17 08:30 40 06/12/17 08:00 77 06/12/17 07:58 98.0 18 133/66 96 06/12/17 07:25 T Tube 06/12/17 06:13 10.0 Intake and Output 06/11/17 06/11/17 06/12/17 15:00 23:00 07:00 Intake Total 600 ml 330 ml Output Total 3600 ml 250 ml Balance -3000 ml 80 ml Exam HEENT exam; supple neck, no JVD. No lymphadenopathy. Midline trachea. No thyromegaly. Tracheostomy in place. Attached to T-piece. Chest examined; diminished but clear breath sounds. S1-S2 audible, no murmurs. Regular rhythm. Abdomen exam; soft, nontender. No organomegaly. G-tube in place. Bowel sounds audible. Extremity exam; trace edema involving right upper extremity. 2+ pitting edema in lower extremities bilaterally. TAX EVALUATOR exam; no focal motor deficit. Results Result Diagram: 06/12/17 0612 06/12/17 0612 Results 24 hrs Laboratory Tests Test 06/11/17 12:28 06/11/17 17:00 06/12/17 00:42 06/12/17 06:02 Bedside Glucose 148 102 123 128 Test 06/12/17 06:12 White Blood Count 15.3 H Red Blood Count 3.24 L Hemoglobin 10.2 L Hematocrit 32.2 L Mean Corpuscular Volume 99.4 Mean Corpuscular Hemoglobin 31.5 Mean Corpuscular Hemoglobin Concent 31.7 L Red Cell Distribution Width 18.5 H Platelet Count 346 Mean Platelet Volume 9.8 Neutrophils % 71.0 Lymphocytes % 8.3 L Monocytes % 8.2 Eosinophils % 1.9 Basophils % 0.5 Nucleated Red Blood Cells % 0.3 H Neutrophils # (Manual) 10.9 H Lymphocytes # 1.3 Monocytes # 1.3 H Eosinophils # 0.3 Basophils # 0.1 Nucleated Red Blood Cells # 0.1 H Sodium Level 145 H Potassium Level 3.7 Chloride Level 104 Carbon Dioxide Level 30 Anion Gap 15 Blood Urea Nitrogen 45 H Creatinine 1.74 H Glucose Level 125 Calcium Level 9.0 Phosphorus Level 2.8 Magnesium Level 2.5 Medications Medications Current Medications Metoprolol Tartrate (Lopressor) 5 mg Q4H PRN IV HR>110 Hold SBP<110 Last administered on 04/20/17 17:36; Admin Dose 5 MG; Start 04/11/17 at 13:30 Miscellaneous Information 1 ea NOTE XX ; Start 04/11/17 at 16:30 Glucose (Glutose) 15 gm Q15M PRN PO DECREASED GLUCOSE Last administered on 05/07 03:27; Admin Dose 15 GM; Start 04/11/17 at 16:30 Glucose (Glutose) 22.5 gm Q15M PRN PO DECREASED GLUCOSE; Start 04/11/17 at 16: 30 Dextrose (D50w Syringe) 25 ml Q15M PRN IV DECREASED GLUCOSE Last administered on 04/12/17 23:56; Admin Dose 25 ML; Start 04/11/17 at 16:30 Dextrose (D50w Syringe) 50 ml Q15M PRN IV DECREASED GLUCOSE; Start 04/11/17 at 16:30 Glucagon (Glucagen) 1 mg Q15M PRN IM DECREASED GLUCOSE; Start 04/11/17 at 16:30 Glucose (Glutose) 15 gm Q15M PRN BUCCAL DECREASED GLUCOSE; Start 04/11/17 at 16 :30 Metoclopramide HCl (Reglan) 10 mg Q6 IV Last administered on 06/12/17 05:22; Admin Dose 10 MG; Start 04/12/17 at 18:00 Insulin Aspart (Novolog Insulin Pen) NOVOLOG *MILD* ALGORI... Q6H SC Last administered on 06/11/17 12:35; Admin Dose 1 UNIT; Start 04/15/17 at 00:00 IV Flush (NS 10 ml) 10 ml PRN PRN IV FLUSH LINE; Start 04/15/17 at 13:00 Amiodarone HCl (Cordarone) 200 mg BID GTB Last administered on 06/12/17 08:26 ; Admin Dose 200 MG; Start 04/16/17 at 13:00 Citalopram Hydrobromide (Celexa) 20 mg DAILY NGT Last administered on 08:25; Admin Dose 20 MG; Start 04/19/17 at 09:00 Hydralazine HCl (Apresoline) 20 mg Q6H PRN IV sbp ABOVE 160 Last administered on 06/03/17 04:17; Admin Dose 20 MG; Start 04/18/17 at 18:30 Chlorhexidine Gluconate (Peridex) 15 ml BID MT Last administered on 06/12/17 08:24; Admin Dose 15 ML; Start 04/22/17 at 21:00 Vitamin A/Vitamin D (Vitamin A & D Oint) 1 applic TID TOP Last administered on 06/12/17 08:25; Admin Dose 1 APPLIC; Start 04/22/17 at 21:00 Vitamin A/Vitamin D (Vitamin A & D Oint) 1 applic TID PRN TOP DRYNESS Last administered on 04/22/17 15:29; Admin Dose 1 APPLIC; Start 04/22/17 at 15:00 Acetaminophen/ Hydrocodone Bitart ([place] (5/325)) 1 tab Q6H GTB Last administered on 06/12/17 09:26; Admin Dose 1 TAB; Start 04/22/17 at 21:30 Diltiazem HCl 5 mg 5 mg Q1H PRN IV HEART RATE GREATER THAN 120 Last administered on 04/29/17 06:17; Admin Dose 5 MG; Start 04/29/17 at 05:00 Sodium Chloride 1,000 ml @ 0 mls/hr Q0M IV Last administered on 05/01/17 03: 00; Admin Dose 1,000 MLS/HR; Start 05/01/17 at 03:00 Sodium Chloride 1,000 ml @ 0 mls/hr Q0M IV Last administered on 05/01/17 04: 00; Admin Dose 1,000 MLS/HR; Start 05/01/17 at 03:30 Diltiazem HCl (Cardizem-D5W 125 Mg/125 ml Drip) 125 ml @ 5 mls/hr TITRATE IV Last administered on 05/02/17 19:11; Admin Dose 5 MLS/HR; Start 05/02/17 at 19: 00 Metoprolol Tartrate (Lopressor) 25 mg QID GTB Last administered on 06/12/17 08 :26; Admin Dose 25 MG; Start 05/07/17 at 09:00 Vitamin B Complex/ Vitamin C (Berocca) 1 cap DAILY PO Last administered on 06/12 08:25; Admin Dose 1 CAP; Start 05/13/17 at 09:00 Aspirin (Aspirin) 81 mg DAILY NGT Last administered on 06/12/17 08:25; Admin Dose 81 MG; Start 05/19/17 at 09:00 Lansoprazole (Prevacid) 30 mg BID@,18 GTB Last administered on 06/12/17 05: 22; Admin Dose 30 MG; Start 05/20/17 at 18:00 Multivitamins (Multivitamin) 30 ml DAILY GTB Last administered on 06/12/17 08: 24; Admin Dose 30 ML; Start 05/24/17 at 09:00 Epoetin Perry (Epogen (Esrd)) 12,000 units TuTa@17 SC Last administered on 21:09; Admin Dose 12,000 UNITS; Start 06/05/17 at 17:00 Levothyroxine Sodium (Synthroid) 150 mcg DAILY@06 GTB Last administered on 06/12 05:23; Admin Dose 150 MCG; Start 06/09/17 at 06:00 EMILIANO HICKS Jun 12, 2017 10:32
--- NOTE | 2017-06-12 12:32 | PN ---
Date/Time of Note Date/Time of Note DATE: 06/12/17 TIME: 12:26 Assessment/Plan Lines/Catheters IV Catheter Type (from [facility]): Mims in Place (from [facility]): Yes Assessment/Plan Chief Complaint/Hosp Course 1. Cholelithiasis: Tolerating tube feeds; no abdominal pain/discomfort/bloating ; +bowel function -No surgical intervention required at this time 2. Pneumonia: Recurrent +sputum cultures; appears comfortable, no fevers, s/p abx; CXR: with nodule-possible aspirated tooth; ct chest: no foreign body -pulmonary toilet -wean as tolerated 3. Vent dependent respiratory failure: 2/2 aspiration PNA+ CHF;reintubated and extubated, coded 04/21 and 05/01; off vent, on tpiece -as above 4. KEYONNA: likely 2/2 septic shock; with + urine output; arranging for outpatient HD; HD today -judicious fluid management -avoid nephrotoxic agents 5. Uncontrolled Afib: s/p amiodarone drip, on oral amiodarone; episodes of Afib Now SR -medical optimization 6. Leukocytosis with lactic acidosis: 2/2 pneumonia +/- steroids vs.fungemia vs other (urine, repeat blood cultures negative); labile -per ID 7. Macrocytic anemia: chronic vs. dilutional vs. acute bleed vs. b12/folate deficiency; hh stable -monitor -Transfuse as needed 8. Electrolyte imbalance: (hyponatremia, hypokalemia); improved -electrolyte optimization 9. CHF: BNP elevated -judicious fluid management -medical optimization 10. Adrenal Insufficiency -solucortef 11. Hypothyroidism -on synthroid 12. Hypoalbuminemia: 2/2 malnutrition +/- inflammation; decreased; tolerating tf ; -nutrition optimization -as above Patient seen and examined in collaboration with Dr. Justus Antonio. Thank you Problems: Subjective 24 Hr Interval Summary Wide awake, responsive. Off vent. Tolerating t-peice without sob. Pending HD today. No fevers, chills, cp, palpitations, abdominal pain/discomfort. + bowel function, tolerating tf. +uop. Exam/Review of Systems Vital Signs Vitals Vital Signs Date Time Temp Pulse Resp B/P Pulse Ox O2 Delivery O2 Flow Rate FiO2 06/12/17 11:42 98.3 76 16 166/74 99 06/12/17 08:45 10.0 06/12/17 08:30 40 06/12/17 07:25 T Tube Intake and Output 06/11/17 06/11/17 06/12/17 15:00 23:00 07:00 Intake Total 600 ml 330 ml Output Total 3600 ml 250 ml Balance -3000 ml 80 ml Exam Free Text/Dictation Constitutional: fully awake, alert pleasant Head: atraumatic, normocephalic Eyes: PERRL, nl lids, nl sclera; ENMT: No mucosa pink and moist (pink and moist with healed perioral lesions), tooth missing, Neck: non-tender, supple, tracheostomy Respiratory: diminished, weaned off vent, min sputum Cardiovascular: nl pulses, regular rate and rhythm, Gastrointestinal: non distended, GT tubes site no erythema, no drainage, non tenderness, bowel sounds x 4 quads, soft; tf ongoing Genitourinary - Female: nl external genitalia; +uop per mims with yellow output with sediments Musculoskeletal: nl extremities to inspection, min edema Extremities: normal pulses, bilateral upper/lower extremity edema 1+; improved extremity edema Neurological: responsive Skin: nl turgor, No rash or lesions Lymph: nl lymph node Results Result Diagram: 06/12/1761106/12/17611 ADDISON FREGOSO NP Jun 12, 2017 12:32
[2017-06-12] MEDS: ALBUTEROL/IPRATROPIUM (NEB) 3 ML AMP HHN PRN (14:12)
--- NOTE | 2017-06-12 14:58 | CONS ---
Date/Time of Note Date/Time of Note DATE: 06/12/17 TIME: 14:56 Assessment/Plan Assessment/Plan Chief Complaint/Hosp Course SUBJECTIVE: No acute events overnight sleeping, looks comfortable, afebrile Indwelling: Trach, PEG Latif, RIJ p-cath 06/05 PHYSICAL EXAMINATION: This is a fragile, chronically ill- appearing, elderly woman who is in no distress. HEENT: Head atraumatic, normocephalic. Sclerae anicteric. Buccal mucosa dry. NECK: Supple. Tracheostomy present. CHEST: Chest rise symmetric. Breath sounds diminished at bases. HEART: S1, S2. ABDOMEN: Soft. Bowel sounds present. EXTREMITIES: Without cyanosis. SKIN: Positive for anasarca. ASSESSMENT: 1. Status post septic shock, urinary tract infection, pneumonia. 2. Mjbht-wd-irdzpav respiratory failure/HD dependent, s/p perm-cath. 3. Status post fungemia. 4. Vqbyc-uy-xonxrlk kidney disease. 5. History of Clostridium difficile colitis. 6. Left upper extremity deep vein thrombosis. 7. Persistent leukocytosis PLAN: The patient remains stable, will repeat cx's given persistent leukocytosis DW at bedside Problems: Consultation Date/Type/Reason Admit Date/Time Apr 11, 2017 at 11:28 Initial Consult Date 04/12/17 Type of Consultation: id Referring Provider: NINA MACIEL DO Exam/Review of Systems Vital Signs Vitals Vital Signs Date Time Temp Pulse Resp B/P Pulse Ox O2 Delivery O2 Flow Rate FiO2 06/12/17 13:10 77 16 98 T Tube 40 06/12/17 13:10 10.0 06/12/17 11:42 98.3 166/74 Intake and Output 06/11/17 06/11/17 06/12/17 15:00 23:00 07:00 Intake Total 600 ml 330 ml Output Total 3600 ml 250 ml Balance -3000 ml 80 ml Results Result Diagram: 06/12/17 0612 06/12/17 0612 Results 24 hrs Laboratory Tests Test 06/11/17 17:00 06/12/17 00:42 06/12/17 06:02 06/12/17 06:12 Bedside Glucose 102 123 128 White Blood Count 15.3 H Red Blood Count 3.24 L Hemoglobin 10.2 L Hematocrit 32.2 L Mean Corpuscular Volume 99.4 Mean Corpuscular Hemoglobin 31.5 Mean Corpuscular Hemoglobin Concent 31.7 L Red Cell Distribution Width 18.5 H Platelet Count 346 Mean Platelet Volume 9.8 Neutrophils % 71.0 Lymphocytes % 8.3 L Monocytes % 8.2 Eosinophils % 1.9 Basophils % 0.5 Nucleated Red Blood Cells % 0.3 H Neutrophils # (Manual) 10.9 H Lymphocytes # 1.3 Monocytes # 1.3 H Eosinophils # 0.3 Basophils # 0.1 Nucleated Red Blood Cells # 0.1 H Sodium Level 145 H Potassium Level 3.7 Chloride Level 104 Carbon Dioxide Level 30 Anion Gap 15 Blood Urea Nitrogen 45 H Creatinine 1.74 H Glucose Level 125 Calcium Level 9.0 Phosphorus Level 2.8 Magnesium Level 2.5 Test 06/12/17 12:12 Bedside Glucose 124 Medications Medications Current Medications Metoprolol Tartrate (Lopressor) 5 mg Q4H PRN IV HR>110 Hold SBP<110 Last administered on 04/20/17 17:36; Admin Dose 5 MG; Start 04/11/17 at 13:30 Miscellaneous Information 1 ea NOTE XX ; Start 04/11/17 at 16:30 Glucose (Glutose) 15 gm Q15M PRN PO DECREASED GLUCOSE Last administered on 05/07 03:27; Admin Dose 15 GM; Start 04/11/17 at 16:30 Glucose (Glutose) 22.5 gm Q15M PRN PO DECREASED GLUCOSE; Start 04/11/17 at 16: 30 Dextrose (D50w Syringe) 25 ml Q15M PRN IV DECREASED GLUCOSE Last administered on 04/12/17 23:56; Admin Dose 25 ML; Start 04/11/17 at 16:30 Dextrose (D50w Syringe) 50 ml Q15M PRN IV DECREASED GLUCOSE; Start 04/11/17 at 16:30 Glucagon (Glucagen) 1 mg Q15M PRN IM DECREASED GLUCOSE; Start 04/11/17 at 16:30 Glucose (Glutose) 15 gm Q15M PRN BUCCAL DECREASED GLUCOSE; Start 04/11/17 at 16 :30 Metoclopramide HCl (Reglan) 10 mg Q6 IV Last administered on 06/12/17 12:29; Admin Dose 10 MG; Start 04/12/17 at 18:00 Insulin Aspart (Novolog Insulin Pen) NOVOLOG *MILD* ALGORI... Q6H SC Last administered on 06/11/17 12:35; Admin Dose 1 UNIT; Start 04/15/17 at 00:00 IV Flush (NS 10 ml) 10 ml PRN PRN IV FLUSH LINE; Start 04/15/17 at 13:00 Amiodarone HCl (Cordarone) 200 mg BID GTB Last administered on 06/12/17 08:26 ; Admin Dose 200 MG; Start 04/16/17 at 13:00 Citalopram Hydrobromide (Celexa) 20 mg DAILY NGT Last administered on 08:25; Admin Dose 20 MG; Start 04/19/17 at 09:00 Hydralazine HCl (Apresoline) 20 mg Q6H PRN IV sbp ABOVE 160 Last administered on 06/03/17 04:17; Admin Dose 20 MG; Start 04/18/17 at 18:30 Chlorhexidine Gluconate (Peridex) 15 ml BID MT Last administered on 06/12/17 08:24; Admin Dose 15 ML; Start 04/22/17 at 21:00 Vitamin A/Vitamin D (Vitamin A & D Oint) 1 applic TID TOP Last administered on 06/12/17 12:28; Admin Dose 1 APPLIC; Start 04/22/17 at 21:00 Vitamin A/Vitamin D (Vitamin A & D Oint) 1 applic TID PRN TOP DRYNESS Last administered on 04/22/17 15:29; Admin Dose 1 APPLIC; Start 04/22/17 at 15:00 Acetaminophen/ Hydrocodone Bitart ([place] (5/325)) 1 tab Q6H GTB Last administered on 06/12/17 09:26; Admin Dose 1 TAB; Start 04/22/17 at 21:30 Diltiazem HCl 5 mg 5 mg Q1H PRN IV HEART RATE GREATER THAN 120 Last administered on 04/29/17 06:17; Admin Dose 5 MG; Start 04/29/17 at 05:00 Sodium Chloride 1,000 ml @ 0 mls/hr Q0M IV Last administered on 05/01/17 03: 00; Admin Dose 1,000 MLS/HR; Start 05/01/17 at 03:00 Sodium Chloride 1,000 ml @ 0 mls/hr Q0M IV Last administered on 05/01/17 04: 00; Admin Dose 1,000 MLS/HR; Start 05/01/17 at 03:30 Diltiazem HCl (Cardizem-D5W 125 Mg/125 ml Drip) 125 ml @ 5 mls/hr TITRATE IV Last administered on 05/02/17 19:11; Admin Dose 5 MLS/HR; Start 05/02/17 at 19: 00 Metoprolol Tartrate (Lopressor) 25 mg QID GTB Last administered on 06/12/17 12 :28; Admin Dose 25 MG; Start 05/07/17 at 09:00 Vitamin B Complex/ Vitamin C (Berocca) 1 cap DAILY PO Last administered on 06/12 08:25; Admin Dose 1 CAP; Start 05/13/17 at 09:00 Aspirin (Aspirin) 81 mg DAILY NGT Last administered on 06/12/17 08:25; Admin Dose 81 MG; Start 05/19/17 at 09:00 Lansoprazole (Prevacid) 30 mg BID@06,18 GTB Last administered on 06/12/17 05: 22; Admin Dose 30 MG; Start 05/20/17 at 18:00 Multivitamins (Multivitamin) 30 ml DAILY GTB Last administered on 06/12/17 08: 24; Admin Dose 30 ML; Start 05/24/17 at 09:00 Epoetin Perry (Epogen (Esrd)) 12,000 units TuThSa@17 SC Last administered on 21:09; Admin Dose 12,000 UNITS; Start 06/05/17 at 17:00 Levothyroxine Sodium (Synthroid) 150 mcg DAILY@06 GTB Last administered on 06/12 05:23; Admin Dose 150 MCG; Start 06/09/17 at 06:00 LORETO MCKEON NP Jun 12, 2017 14:58
[2017-06-12] MEDS: EPOETIN 4000 UNITS/1 ML INJ (ESRD) SC SCH (17:48)
[2017-06-13] VITALS (18 sets, daily range): BP systolic 102–158; BP diastolic 50–83; PULSE 69–90; RESP 16–20
[2017-06-13] MEDS: LEVALBUTEROL (HFA) 15 GM INHALER INH SCH ×2 (02:00→08:00)
[2017-06-13] MEDS: HYDROCODONE/APAP (5/325) TAB GTB SCH ×4 (03:30→23:00)
[2017-06-13] MEDS: INSULIN ASPART [NOVOLOG] 3 ML PEN SC SCH ×3 (06:00→18:00)
[2017-06-13] MEDS: LANSOPRAZOLE 30 MG CAP GTB SCH ×2 (06:06→18:12)
[2017-06-13] MEDS: METOCLOPRAMIDE 10 MG INJ IV SCH ×3 (06:06→18:12)
[2017-06-13] MEDS: LEVOTHYROXINE 150 MCG TAB GTB SCH (06:07)
[2017-06-13 07:35] LABS: ABNORMAL IP MESSAGE 1; BASOPHIL # 0.1 10^3/ul (0.0-0.1); BASOPHILS % 0.7 % (0.0-2.0); EOSINOPHILS # 0.4 10^3/ul (0.0-0.5); EOSINOPHILS % 2.1 % (0.0-7.0); HEMATOCRIT 32.2 % (37.0-47.0); LYMPHOCYTES # 1.5 10^3/ul (0.8-2.9); LYMPHOCYTES % 8.4 % (15.0-51.0); MEAN CORPUSCULAR HEMOGLOBIN 30.5 pg (29.0-33.0); MEAN CORPUSCULAR HGB CONC 31.1 g/dl (32.0-37.0); MEAN CORPUSCULAR VOLUME 98.2 fl (82.0-101.0); MEAN PLATELET VOLUME 9.5 fl (7.4-10.4); MONOCYTE # 1.5 10^3/ul (0.3-0.9); MONOCYTES % 8.4 % (0.0-11.0); NEUTROPHILS % 71.2 % (39.0-77.0); NUCLEATED RED BLOOD CELLS # 0.1 10^3/ul (0.0-0.0); NUCLEATED RED BLOOD CELLS% 0.3 /100WBC (0.0-0.0); PLATELET COUNT 362 10^3/UL (140-415); RED BLOOD COUNT 3.28 10^6/ul (4.20-5.40); RED CELL DISTRIBUTION WIDTH 18.3 % (11.5-14.5); WHITE BLOOD COUNT 17.4 10^3/ul (4.8-10.8)
[2017-06-13 07:36] LABS: POSITIVE DIFF @See below
[2017-06-13 08:00] LABS: CALCIUM 9.1 mg/dl (8.4-10.2); CREATININE 1.96 mg/dl (0.44-1.00); MAGNESIUM 2.6 mg/dl (1.7-2.5); POTASSIUM 3.7 mmol/L (3.5-5.1)
--- NOTE | 2017-06-13 09:28 | PN ---
DATE: 06/13/2017 SUBJECTIVE DATA: The patient is currently on hemodialysis, tolerating well. No other events noted overnight. No hemoptysis, hematemesis, hematochezia. OBJECTIVE DATA: VITAL SIGNS: Blood pressure 129/83, respirations 18, pulse 87, temperature 98.3. HEENT: Head is normocephalic. NECK: Supple. HEART: Regular rate. LUNGS: Show diminished breath sounds at the base. ABDOMEN: Soft, nontender to palpation. No rebound or guarding. EXTREMITIES: Negative for clubbing, cyanosis. Positive edema. DERMATOLOGIC: Clean. No rashes. MUSCULOSKELETAL: No joint effusion. NEUROLOGIC: Unchanged exam. MEDICATIONS: Reviewed. LABORATORY AND DIAGNOSTIC DATA: Shows a sodium 140, potassium 3.7, chloride 104, BUN 66, creatinine 1.96. White count 17.4, hemoglobin 10.0, crit 32.2, platelet count is 362. ASSESSMENT AND PLAN: 1. Ventilatory-dependent respiratory failure. Vent settings and ABGs reviewed. Continue to monitor. 2. End-stage renal disease. Continue hemodialysis. 3. Volume overload. Continue ultrafiltration with dialysis. 4. Anemia. Continue to monitor H and H levels. Continue Epogen. 5. Sepsis, status post shock. The patient has completed antibiotic course. 6. Leukocytosis. Etiology is unclear. Repeat cultures have been sent. May consider empiric antibiotics. We will defer to Infectious Disease. 7. Encephalopathy. The patient's mental status is slowly improving. 8. Hypothyroidism. Continue Synthroid. 9. Hyponatremia, improved. 10. Hypokalemia, resolved. 11. Dysphagia, status post percutaneous endoscopic gastrostomy. Continue tube feeding. 12. History of thyroid cancer with tracheomalacia. The patient has been evaluated by ENT. Continue to monitor. 13. Status post gastrointestinal bleed. 14. Adrenal insufficiency. 15. Gastrointestinal and deep venous thrombosis prophylaxis. Dictated By: Abebe Valderrama DO /marquita/laith /Document#: [id number]
[2017-06-13] MEDS ORDERED: VANCOMYCIN IV PER PHARMACY XX SCH (09:30)
[2017-06-13] MEDS: METOPROLOL 25 MG TAB GTB SCH ×4 (10:00→23:00)
[2017-06-13] MEDS: CITALOPRAM 20 MG TAB NGT SCH (10:01)
[2017-06-13] MEDS: ASPIRIN 81 MG TAB NGT SCH (10:01)
[2017-06-13] MEDS: CHLORHEXIDINE GLUCONATE 15 ML UD CUP MT SCH ×2 (10:02→22:00)
[2017-06-13] MEDS: MULTIVITAMINS 30 ML CUP GTB SCH (10:02)
[2017-06-13] MEDS: AMIODARONE 200 MG TAB GTB SCH ×2 (10:02→23:00)
[2017-06-13] MEDS: VITAMIN B COMPLEX/VIT C CAP PO SCH (10:10)
[2017-06-13] MEDS: VITAMIN A & D 5 GM OINT PACKET TOP SCH ×3 (10:10→23:00)
[2017-06-13] MEDS: CEFEPIME 1GM/50 ML (PMX) 50 ML IVPB SCH (10:10)
[2017-06-13] MEDS ORDERED: VANCOMYCIN 1.25 GM in SOD CHLORIDE 0.9% 250 ML IVPB ONE (11:00)
--- NOTE | 2017-06-13 12:40 | CONS ---
Date/Time of Note Date/Time of Note DATE: 06/13/17 TIME: 12:37 Assessment/Plan Assessment/Plan Additional Assessment/Plan Assessment and recommendations; 1. Patient admitted with sepsis now exhibiting increasing leukocytosis with possibly UTI with gram-negative rods. 3. Chronic respiratory failure, patient weaned down to T-piece. 3. History of redo tracheostomy 2. 4. Prior history of glossal cancer. 5. End-stage renal disease, on hemodialysis. 6. Hypertension and hypothyroidism. 7. Anemia. 8. Severe generalized deconditioning. Continue current treatment. Cefepime started today. Will obtain chest x-ray. Consultation Date/Type/Reason Admit Date/Time Apr 11, 2017 at 11:28 Initial Consult Date 05/01/17 Type of Consultation: Pulmonary Referring Provider: NINA MACIEL DO 24 HR Interval Summary Free Text/Dictation Patient condition stable. Remains awake alert. Tolerating T piece very well. General exam; elderly woman, on T piece via tracheostomy. Awake and alert. Currently in no distress. Exam/Review of Systems Vital Signs Vitals Vital Signs Date Time Temp Pulse Resp B/P Pulse Ox O2 Delivery O2 Flow Rate FiO2 06/13/17 11:36 98.5 91 20 147/67 94 06/13/17 07:40 10.0 40 06/13/17 07:40 T Tube Intake and Output 06/12/17 06/12/17 06/13/17 15:00 23:00 07:00 Intake Total 760 ml 860 ml Output Total 250 ml 450 ml Balance 510 ml 410 ml Exam HEENT exam; supple neck, no JVD. No lymphadenopathy. Midline trachea. No thyromegaly. Tracheostomy in place. At S2 T-piece. Patient has fair dentition. Chest exam; scattered crackles bilaterally. S1-S2 audible, no murmurs. Regular rhythm. Abdomen exam; soft, G-tube in place. Bowel sounds audible. Abdomen is nontender. No organomegaly. Extremity exam; there is marked reduction in generalized edema. 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 Results Result Diagram: 06/13/17 0652 06/13/17 0652 Results 24 hrs Laboratory Tests Test 06/12/17 17:40 06/12/17 23:30 06/13/17 06:05 06/13/17 06:52 Bedside Glucose 133 115 115 White Blood Count 17.4 H Red Blood Count 3.28 L Hemoglobin 10.0 L Hematocrit 32.2 L Mean Corpuscular Volume 98.2 Mean Corpuscular Hemoglobin 30.5 Mean Corpuscular Hemoglobin Concent 31.1 L Red Cell Distribution Width 18.3 H Platelet Count 362 Mean Platelet Volume 9.5 Neutrophils % 71.2 Lymphocytes % 8.4 L Monocytes % 8.4 Eosinophils % 2.1 Basophils % 0.7 Nucleated Red Blood Cells % 0.3 H Neutrophils # (Manual) 12.4 H Lymphocytes # 1.5 Monocytes # 1.5 H Eosinophils # 0.4 Basophils # 0.1 Nucleated Red Blood Cells # 0.1 H Sodium Level 140 Potassium Level 3.7 Chloride Level 104 Carbon Dioxide Level 31 Anion Gap 9 # Blood Urea Nitrogen 52 H Creatinine 1.96 H Glucose Level 123 Calcium Level 9.1 Phosphorus Level 3.0 Magnesium Level 2.6 H Medications Medications Current Medications Metoprolol Tartrate (Lopressor) 5 mg Q4H PRN IV HR>110 Hold SBP<110 Last administered on 04/20/17 17:36; Admin Dose 5 MG; Start 04/11/17 at 13:30 Miscellaneous Information 1 ea NOTE XX ; Start 04/11/17 at 16:30 Glucose (Glutose) 15 gm Q15M PRN PO DECREASED GLUCOSE Last administered on 05/07 03:27; Admin Dose 15 GM; Start 04/11/17 at 16:30 Glucose (Glutose) 22.5 gm Q15M PRN PO DECREASED GLUCOSE; Start 04/11/17 at 16: 30 Dextrose (D50w Syringe) 25 ml Q15M PRN IV DECREASED GLUCOSE Last administered on 04/12/17 23:56; Admin Dose 25 ML; Start 04/11/17 at 16:30 Dextrose (D50w Syringe) 50 ml Q15M PRN IV DECREASED GLUCOSE; Start 04/11/17 at 16:30 Glucagon (Glucagen) 1 mg Q15M PRN IM DECREASED GLUCOSE; Start 04/11/17 at 16:30 Glucose (Glutose) 15 gm Q15M PRN BUCCAL DECREASED GLUCOSE; Start 04/11/17 at 16 :30 Metoclopramide HCl (Reglan) 10 mg Q6 IV Last administered on 06/13/17 06:06; Admin Dose 10 MG; Start 04/12/17 at 18:00 Insulin Aspart (Novolog Insulin Pen) NOVOLOG *MILD* ALGORI... Q6H SC Last administered on 06/11/17 12:35; Admin Dose 1 UNIT; Start 04/15/17 at 00:00 IV Flush (NS 10 ml) 10 ml PRN PRN IV FLUSH LINE Last administered on 06/12/17 23:32; Admin Dose 10 ML; Start 04/15/17 at 13:00 Amiodarone HCl (Cordarone) 200 mg BID GTB Last administered on 06/13/17 10:02; Admin Dose 200 MG; Start 04/16/17 at 13:00 Citalopram Hydrobromide (Celexa) 20 mg DAILY NGT Last administered on 06/13/17 10:01; Admin Dose 20 MG; Start 04/19/17 at 09:00 Hydralazine HCl (Apresoline) 20 mg Q6H PRN IV sbp ABOVE 160 Last administered on 06/03/17 04:17; Admin Dose 20 MG; Start 04/18/17 at 18:30 Chlorhexidine Gluconate (Peridex) 15 ml BID MT Last administered on 06/13/17 10 :02; Admin Dose 15 ML; Start 04/22/17 at 21:00 Vitamin A/Vitamin D (Vitamin A & D Oint) 1 applic TID TOP Last administered on 06/13/17 10:10; Admin Dose 1 APPLIC; Start 04/22/17 at 21:00 Vitamin A/Vitamin D (Vitamin A & D Oint) 1 applic TID PRN TOP DRYNESS Last administered on 04/22/17 15:29; Admin Dose 1 APPLIC; Start 04/22/17 at 15:00 Acetaminophen/ Hydrocodone Bitart ([place] (5/325)) 1 tab Q6H GTB Last administered on 06/13/17 10:01; Admin Dose 1 TAB; Start 04/22/17 at 21:30 Diltiazem HCl 5 mg 5 mg Q1H PRN IV HEART RATE GREATER THAN 120 Last administered on 04/29/17 06:17; Admin Dose 5 MG; Start 04/29/17 at 05:00 Sodium Chloride 1,000 ml @ 0 mls/hr Q0M IV Last administered on 05/01/17 03: 00; Admin Dose 1,000 MLS/HR; Start 05/01/17 at 03:00 Sodium Chloride 1,000 ml @ 0 mls/hr Q0M IV Last administered on 05/01/17 04: 00; Admin Dose 1,000 MLS/HR; Start 05/01/17 at 03:30 Diltiazem HCl (Cardizem-D5W 125 Mg/125 ml Drip) 125 ml @ 5 mls/hr TITRATE IV Last administered on 05/02/17 19:11; Admin Dose 5 MLS/HR; Start 05/02/17 at 19: 00 Metoprolol Tartrate (Lopressor) 25 mg QID GTB Last administered on 06/13/17 10: 00; Admin Dose 25 MG; Start 05/07/17 at 09:00 Vitamin B Complex/ Vitamin C (Berocca) 1 cap DAILY PO Last administered on 10:10; Admin Dose 1 CAP; Start 05/13/17 at 09:00 Aspirin (Aspirin) 81 mg DAILY NGT Last administered on 06/13/17 10:01; Admin Dose 81 MG; Start 05/19/17 at 09:00 Lansoprazole (Prevacid) 30 mg BID@06,18 GTB Last administered on 06/13/17 06:06 ; Admin Dose 30 MG; Start 05/20/17 at 18:00 Multivitamins (Multivitamin) 30 ml DAILY GTB Last administered on 06/13/17 10: 02; Admin Dose 30 ML; Start 05/24/17 at 09:00 Epoetin Perry (Epogen (Esrd)) 12,000 units TuThSa@17 SC Last administered on 17:48; Admin Dose 12,000 UNITS; Start 06/05/17 at 17:00 Levothyroxine Sodium 150 mcg 150 mcg DAILY@06 GTB Last administered on 06:07; Admin Dose 150 MCG; Start 06/09/17 at 06:00 Cefepime HCl 50 ml @ 100 mls/hr DAILY IVPB Last administered on 06/13/17 10:10 ; Admin Dose 100 MLS/HR; Start 06/13/17 at 09:30 Vancomycin HCl/ Sodium Chloride (Vancocin/NS) 250 ml @ 83.333 mls/ hr ONCE ONCE IVPB ; Start 06/13/17 at 11:00; Stop 06/13/17 at 13:59 EMILIANO HICKS Jun 13, 2017 12:40
--- NOTE | 2017-06-13 13:25 | CONS ---
Date/Time of Note Date/Time of Note DATE: 06/13/17 TIME: 13:22 Assessment/Plan Assessment/Plan Chief Complaint/Hosp Course SUBJECTIVE: No acute events overnight, alert, looks comfortable, afebrile Indwelling: Trach, PEG Latif, RIJ p-cath 06/05 PHYSICAL EXAMINATION: This is a fragile, chronically ill- appearing, elderly woman who is in no distress. HEENT: Head atraumatic, normocephalic. Sclerae anicteric. Buccal mucosa dry. NECK: Supple. Tracheostomy present. CHEST: Chest rise symmetric. Breath sounds diminished at bases. HEART: S1, S2. ABDOMEN: Soft. Bowel sounds present. EXTREMITIES: Without cyanosis. SKIN: Positive for anasarca. ASSESSMENT: 1. Status post septic shock, urinary tract infection, pneumonia. 2. Msyxe-cr-ggdbrpg respiratory failure/HD dependent, s/p perm-cath. 3. Status post fungemia. 4. Odqqx-hz-brvhjfv kidney disease. 5. History of Clostridium difficile colitis. 6. Left upper extremity deep vein thrombosis. 7. Persistent leukocytosis PLAN: The patient remains stable, pending repeat cx's, will start Cefepime and Vanco given persistent leukocytosis DW at bedside Problems: Consultation Date/Type/Reason Admit Date/Time Apr 11, 2017 at 11:28 Initial Consult Date 04/12/17 Type of Consultation: id Referring Provider: NINA MACIEL DO Exam/Review of Systems Vital Signs Vitals Vital Signs Date Time Temp Pulse Resp B/P Pulse Ox O2 Delivery O2 Flow Rate FiO2 06/13/17 13:01 90 06/13/17 11:36 98.5 20 147/67 94 06/13/17 07:40 10.0 40 06/13/17 07:40 T Tube Intake and Output 06/12/17 06/12/17 06/13/17 15:00 23:00 07:00 Intake Total 760 ml 860 ml Output Total 250 ml 450 ml Balance 510 ml 410 ml Results Result Diagram: 06/13/17 0652 06/13/17 0652 Results 24 hrs Laboratory Tests Test 06/12/17 17:40 06/12/17 23:30 06/13/17 06:05 06/13/17 06:52 Bedside Glucose 133 115 115 White Blood Count 17.4 H Red Blood Count 3.28 L Hemoglobin 10.0 L Hematocrit 32.2 L Mean Corpuscular Volume 98.2 Mean Corpuscular Hemoglobin 30.5 Mean Corpuscular Hemoglobin Concent 31.1 L Red Cell Distribution Width 18.3 H Platelet Count 362 Mean Platelet Volume 9.5 Neutrophils % 71.2 Lymphocytes % 8.4 L Monocytes % 8.4 Eosinophils % 2.1 Basophils % 0.7 Nucleated Red Blood Cells % 0.3 H Neutrophils # (Manual) 12.4 H Lymphocytes # 1.5 Monocytes # 1.5 H Eosinophils # 0.4 Basophils # 0.1 Nucleated Red Blood Cells # 0.1 H Sodium Level 140 Potassium Level 3.7 Chloride Level 104 Carbon Dioxide Level 31 Anion Gap 9 # Blood Urea Nitrogen 52 H Creatinine 1.96 H Glucose Level 123 Calcium Level 9.1 Phosphorus Level 3.0 Magnesium Level 2.6 H Test 06/13/17 12:51 Bedside Glucose 163 Medications Medications Current Medications Metoprolol Tartrate (Lopressor) 5 mg Q4H PRN IV HR>110 Hold SBP<110 Last administered on 04/20/17 17:36; Admin Dose 5 MG; Start 04/11/17 at 13:30 Miscellaneous Information 1 ea NOTE XX ; Start 04/11/17 at 16:30 Glucose (Glutose) 15 gm Q15M PRN PO DECREASED GLUCOSE Last administered on 05/07 03:27; Admin Dose 15 GM; Start 04/11/17 at 16:30 Glucose (Glutose) 22.5 gm Q15M PRN PO DECREASED GLUCOSE; Start 04/11/17 at 16: 30 Dextrose (D50w Syringe) 25 ml Q15M PRN IV DECREASED GLUCOSE Last administered on 04/12/17 23:56; Admin Dose 25 ML; Start 04/11/17 at 16:30 Dextrose (D50w Syringe) 50 ml Q15M PRN IV DECREASED GLUCOSE; Start 04/11/17 at 16:30 Glucagon (Glucagen) 1 mg Q15M PRN IM DECREASED GLUCOSE; Start 04/11/17 at 16:30 Glucose (Glutose) 15 gm Q15M PRN BUCCAL DECREASED GLUCOSE; Start 04/11/17 at 16 :30 Metoclopramide HCl (Reglan) 10 mg Q6 IV Last administered on 06/13/17 12:39; Admin Dose 10 MG; Start 04/12/17 at 18:00 Insulin Aspart (Novolog Insulin Pen) NOVOLOG *MILD* ALGORI... Q6H SC Last administered on 06/13/17 12:59; Admin Dose 1 UNIT; Start 04/15/17 at 00:00 IV Flush (NS 10 ml) 10 ml PRN PRN IV FLUSH LINE Last administered on 06/12/17 23:32; Admin Dose 10 ML; Start 04/15/17 at 13:00 Amiodarone HCl (Cordarone) 200 mg BID GTB Last administered on 06/13/17 10:02; Admin Dose 200 MG; Start 04/16/17 at 13:00 Citalopram Hydrobromide (Celexa) 20 mg DAILY NGT Last administered on 06/13/17 10:01; Admin Dose 20 MG; Start 04/19/17 at 09:00 Hydralazine HCl (Apresoline) 20 mg Q6H PRN IV sbp ABOVE 160 Last administered on 06/03/17 04:17; Admin Dose 20 MG; Start 04/18/17 at 18:30 Chlorhexidine Gluconate (Peridex) 15 ml BID MT Last administered on 06/13/17 10 :02; Admin Dose 15 ML; Start 04/22/17 at 21:00 Vitamin A/Vitamin D (Vitamin A & D Oint) 1 applic TID TOP Last administered on 06/13/17 12:39; Admin Dose 1 APPLIC; Start 04/22/17 at 21:00 Vitamin A/Vitamin D (Vitamin A & D Oint) 1 applic TID PRN TOP DRYNESS Last administered on 04/22/17 15:29; Admin Dose 1 APPLIC; Start 04/22/17 at 15:00 Acetaminophen/ Hydrocodone Bitart ([place] (5/325)) 1 tab Q6H GTB Last administered on 06/13/17 10:01; Admin Dose 1 TAB; Start 04/22/17 at 21:30 Diltiazem HCl 5 mg 5 mg Q1H PRN IV HEART RATE GREATER THAN 120 Last administered on 04/29/17 06:17; Admin Dose 5 MG; Start 04/29/17 at 05:00 Sodium Chloride 1,000 ml @ 0 mls/hr Q0M IV Last administered on 05/01/17 03: 00; Admin Dose 1,000 MLS/HR; Start 05/01/17 at 03:00 Sodium Chloride 1,000 ml @ 0 mls/hr Q0M IV Last administered on 05/01/17 04: 00; Admin Dose 1,000 MLS/HR; Start 05/01/17 at 03:30 Diltiazem HCl (Cardizem-D5W 125 Mg/125 ml Drip) 125 ml @ 5 mls/hr TITRATE IV Last administered on 05/02/17 19:11; Admin Dose 5 MLS/HR; Start 05/02/17 at 19: 00 Metoprolol Tartrate (Lopressor) 25 mg QID GTB Last administered on 06/13/17 12: 39; Admin Dose 25 MG; Start 05/07/17 at 09:00 Vitamin B Complex/ Vitamin C (Berocca) 1 cap DAILY PO Last administered on 10:10; Admin Dose 1 CAP; Start 05/13/17 at 09:00 Aspirin (Aspirin) 81 mg DAILY NGT Last administered on 06/13/17 10:01; Admin Dose 81 MG; Start 05/19/17 at 09:00 Lansoprazole (Prevacid) 30 mg BID@06,18 GTB Last administered on 06/13/17 06:06 ; Admin Dose 30 MG; Start 05/20/17 at 18:00 Multivitamins (Multivitamin) 30 ml DAILY GTB Last administered on 06/13/17 10: 02; Admin Dose 30 ML; Start 05/24/17 at 09:00 Epoetin Perry (Epogen (Esrd)) 12,000 units TuThSa@17 SC Last administered on 17:48; Admin Dose 12,000 UNITS; Start 06/05/17 at 17:00 Levothyroxine Sodium 150 mcg 150 mcg DAILY@06 GTB Last administered on 06:07; Admin Dose 150 MCG; Start 06/09/17 at 06:00 Cefepime HCl 50 ml @ 100 mls/hr DAILY IVPB Last administered on 06/13/17 10:10 ; Admin Dose 100 MLS/HR; Start 06/13/17 at 09:30 Vancomycin HCl/ Sodium Chloride (Vancocin/NS) 250 ml @ 83.333 mls/ hr ONCE ONCE IVPB Last administered on 06/13/17t 12:40; Admin Dose 83.333 MLS/HR; Start 06/13/17 at 11:00; Stop 06/13/17 at 13:59 LORETO MCKEON NP Jun 13, 2017 13:24
[2017-06-13] MEDS: ALBUTEROL/IPRATROPIUM (NEB) 3 ML AMP HHN PRN (14:34)
--- NOTE | 2017-06-13 16:00 | CONS ---
Date/Time of Note Date/Time of Note DATE: 06/13/17 TIME: 15:59 Consult Date/Type/Reason Admit Date/Time Apr 11, 2017 at 11:28 Initial Consult Date 04/12/17 Type of Consultation: CARDIOLOGY Ordering Provider: NINA MACIEL DO Subjective CARDIOLOGY FOLLOW UP NOTE: D/W staff and rhythm was reviewed. pt remains in NSR. no afib overnight no reports of any chest pain or pressure or palpitations. pt is still s/p trach . no reported active bleeding Objective: General: s/p trach on O2 now. HEENT: NC/AT. . oropharynx with multiple lesions. . NECK: NO JVD. no stridor. s/p trach on vent CV: RRR. systolic ejection murmur; no gallop or rubs. PULM: + mild rhonchi. no wheezes. GI: SOFT, NT, ND, no rebound or guarding s/p PEG Extremity: 1-2+ B/L LE edema. no clubbing. neuro: sleeping comfortably . Psych: calm rectal: deferred Derm: multiple echymosis chest: s/p right chest HD access in place Objective Vital Signs Date Time Temp Pulse Resp B/P Pulse Ox O2 Delivery O2 Flow Rate FiO2 06/13/17 15:36 98.3 79 16 135/65 96 06/13/17 13:35 10.0 40 06/13/17 07:40 T Tube Intake and Output 06/12/17 06/12/17 06/13/17 15:00 23:00 07:00 Intake Total 760 ml 860 ml Output Total 250 ml 450 ml Balance 510 ml 410 ml Results/Medications Result Diagram: 06/13/17 0652 06/13/17 0652 Results 24 hrs Laboratory Tests Test 06/12/17 17:40 06/12/17 23:30 06/13/17 06:05 06/13/17 06:52 Bedside Glucose 133 115 115 White Blood Count 17.4 H Red Blood Count 3.28 L Hemoglobin 10.0 L Hematocrit 32.2 L Mean Corpuscular Volume 98.2 Mean Corpuscular Hemoglobin 30.5 Mean Corpuscular Hemoglobin Concent 31.1 L Red Cell Distribution Width 18.3 H Platelet Count 362 Mean Platelet Volume 9.5 Neutrophils % 71.2 Lymphocytes % 8.4 L Monocytes % 8.4 Eosinophils % 2.1 Basophils % 0.7 Nucleated Red Blood Cells % 0.3 H Neutrophils # (Manual) 12.4 H Lymphocytes # 1.5 Monocytes # 1.5 H Eosinophils # 0.4 Basophils # 0.1 Nucleated Red Blood Cells # 0.1 H Sodium Level 140 Potassium Level 3.7 Chloride Level 104 Carbon Dioxide Level 31 Anion Gap 9 # Blood Urea Nitrogen 52 H Creatinine 1.96 H Glucose Level 123 Calcium Level 9.1 Phosphorus Level 3.0 Magnesium Level 2.6 H Test 06/13/17 12:51 Bedside Glucose 163 Medications Current Medications Metoprolol Tartrate (Lopressor) 5 mg Q4H PRN IV HR>110 Hold SBP<110 Last administered on 04/20/17 17:36; Admin Dose 5 MG; Start 04/11/17 at 13:30 Miscellaneous Information 1 ea NOTE XX ; Start 04/11/17 at 16:30 Glucose (Glutose) 15 gm Q15M PRN PO DECREASED GLUCOSE Last administered on 05/07 03:27; Admin Dose 15 GM; Start 04/11/17 at 16:30 Glucose (Glutose) 22.5 gm Q15M PRN PO DECREASED GLUCOSE; Start 04/11/17 at 16: 30 Dextrose (D50w Syringe) 25 ml Q15M PRN IV DECREASED GLUCOSE Last administered on 04/12/17 23:56; Admin Dose 25 ML; Start 04/11/17 at 16:30 Dextrose (D50w Syringe) 50 ml Q15M PRN IV DECREASED GLUCOSE; Start 04/11/17 at 16:30 Glucagon (Glucagen) 1 mg Q15M PRN IM DECREASED GLUCOSE; Start 04/11/17 at 16:30 Glucose (Glutose) 15 gm Q15M PRN BUCCAL DECREASED GLUCOSE; Start 04/11/17 at 16 :30 Metoclopramide HCl (Reglan) 10 mg Q6 IV Last administered on 06/13/17 12:39; Admin Dose 10 MG; Start 04/12/17 at 18:00 Insulin Aspart (Novolog Insulin Pen) NOVOLOG *MILD* ALGORI... Q6H SC Last administered on 06/13/17 12:59; Admin Dose 1 UNIT; Start 04/15/17 at 00:00 IV Flush (NS 10 ml) 10 ml PRN PRN IV FLUSH LINE Last administered on 06/12/17 23:32; Admin Dose 10 ML; Start 04/15/17 at 13:00 Amiodarone HCl (Cordarone) 200 mg BID GTB Last administered on 06/13/17 10:02; Admin Dose 200 MG; Start 04/16/17 at 13:00 Citalopram Hydrobromide (Celexa) 20 mg DAILY NGT Last administered on 06/13/17 10:01; Admin Dose 20 MG; Start 04/19/17 at 09:00 Hydralazine HCl (Apresoline) 20 mg Q6H PRN IV sbp ABOVE 160 Last administered on 06/03/17 04:17; Admin Dose 20 MG; Start 04/18/17 at 18:30 Chlorhexidine Gluconate (Peridex) 15 ml BID MT Last administered on 06/13/17 10 :02; Admin Dose 15 ML; Start 04/22/17 at 21:00 Vitamin A/Vitamin D (Vitamin A & D Oint) 1 applic TID TOP Last administered on 06/13/17 12:39; Admin Dose 1 APPLIC; Start 04/22/17 at 21:00 Vitamin A/Vitamin D (Vitamin A & D Oint) 1 applic TID PRN TOP DRYNESS Last administered on 04/22/17 15:29; Admin Dose 1 APPLIC; Start 04/22/17 at 15:00 Acetaminophen/ Hydrocodone Bitart ([place] (5/325)) 1 tab Q6H GTB Last administered on 06/13/17 15:22; Admin Dose 1 TAB; Start 04/22/17 at 21:30 Diltiazem HCl 5 mg 5 mg Q1H PRN IV HEART RATE GREATER THAN 120 Last administered on 04/29/17 06:17; Admin Dose 5 MG; Start 04/29/17 at 05:00 Sodium Chloride 1,000 ml @ 0 mls/hr Q0M IV Last administered on 05/01/17 03: 00; Admin Dose 1,000 MLS/HR; Start 05/01/17 at 03:00 Sodium Chloride 1,000 ml @ 0 mls/hr Q0M IV Last administered on 05/01/17 04: 00; Admin Dose 1,000 MLS/HR; Start 05/01/17 at 03:30 Diltiazem HCl (Cardizem-D5W 125 Mg/125 ml Drip) 125 ml @ 5 mls/hr TITRATE IV Last administered on 05/02/17 19:11; Admin Dose 5 MLS/HR; Start 05/02/17 at 19: 00 Metoprolol Tartrate (Lopressor) 25 mg QID GTB Last administered on 06/13/17 12: 39; Admin Dose 25 MG; Start 05/07/17 at 09:00 Vitamin B Complex/ Vitamin C (Berocca) 1 cap DAILY PO Last administered on 10:10; Admin Dose 1 CAP; Start 05/13/17 at 09:00 Aspirin (Aspirin) 81 mg DAILY NGT Last administered on 06/13/17 10:01; Admin Dose 81 MG; Start 05/19/17 at 09:00 Lansoprazole (Prevacid) 30 mg BID@06,18 GTB Last administered on 06/13/17 06:06 ; Admin Dose 30 MG; Start 05/20/17 at 18:00 Multivitamins (Multivitamin) 30 ml DAILY GTB Last administered on 06/13/17 10: 02; Admin Dose 30 ML; Start 05/24/17 at 09:00 Epoetin [place] (Epogen (Esrd)) 12,000 units TuThSa@17 SC Last administered on 17:48; Admin Dose 12,000 UNITS; Start 06/05/17 at 17:00 Levothyroxine Sodium 150 mcg 150 mcg DAILY@06 GTB Last administered on 06:07; Admin Dose 150 MCG; Start 06/09/17 at 06:00 Cefepime HCl (Maxipime 1gm/50 ml (Pmx)) 50 ml @ 100 mls/hr DAILY IVPB Last administered on 06/13/17 10:10; Admin Dose 100 MLS/HR; Start 06/13/17 at 09:30 Assessment/Plan Chief Complaint/Hosp Course 1. acute on chronic hypoxemic respiratory failure: 2. S/P NSTEMI: due to demand ischemia. 3. CHF/ fluid overload: due to diastolic heart failure and renal failure 4. moderate 5. Arrhythmia and P afib, frequent PVC: currently in NSR. 6. ANEMIA: s/p multiple transfusion 7. s/p pneumonia, . 8. s/p sepsis and shock: BP is stable now. 9. Anasarca 10. s/p cardiopulm arrest due to resp failure 11. renal failure : ON HD now. Rec: cont resp care and vent support. defer to PULM Team. currently on weaning protocol correct lytes prn. CONT betablocker as tolerated. . cont thyroid supplement . cont tele monitoring HD as per renal transfuse prn, currently H/H has remained stable though. cont low dose ASA 81 mg only due to recurrent anemia. THANK YOU. Problems: FRANCISCO BLACKWOOD MD Jun 13, 2017 16:00
--- NOTE | 2017-06-13 22:49 | PN ---
Date/Time of Note Date/Time of Note DATE: 06/13/17 TIME: 22:49 Assessment/Plan Lines/Catheters IV Catheter Type (from [facility]): Permacath Latif in Place (from [facility]): Yes Assessment/Plan Chief Complaint/Hosp Course 1. Cholelithiasis: Tolerating tube feeds; no abdominal pain/discomfort/bloating ; +bowel function -No surgical intervention required at this time 2. Pneumonia: Recurrent +sputum cultures; appears comfortable, no fevers, s/p abx; CXR: with nodule-possible aspirated tooth; ct chest: no foreign body -pulmonary toilet -wean as tolerated 3. Vent dependent respiratory failure: 2/2 aspiration PNA+ CHF;reintubated and extubated, coded 04/21 and 05/01; off vent, on tpiece -as above 4. KEYONNA: likely 2/2 septic shock; with + urine output; arranging for outpatient HD; HD today -judicious fluid management -avoid nephrotoxic agents 5. Uncontrolled Afib: s/p amiodarone drip, on oral amiodarone; episodes of Afib Now SR -medical optimization 6. Leukocytosis with lactic acidosis: 2/2 pneumonia +/- steroids vs.fungemia vs other (urine, repeat blood cultures negative); labile -per ID 7. Macrocytic anemia: chronic vs. dilutional vs. acute bleed vs. b12/folate deficiency; hh stable -monitor -Transfuse as needed 8. Electrolyte imbalance: (hyponatremia, hypokalemia); improved -electrolyte optimization 9. CHF: BNP elevated -judicious fluid management -medical optimization 10. Adrenal Insufficiency -solucortef 11. Hypothyroidism -on synthroid 12. Hypoalbuminemia: 2/2 malnutrition +/- inflammation; decreased; tolerating tf ; -nutrition optimization -as above Patient seen and examined in collaboration with Dr. Justus Antonio. Thank you Problems: Exam/Review of Systems Vital Signs Vitals Vital Signs Date Time Temp Pulse Resp B/P Pulse Ox O2 Delivery O2 Flow Rate FiO2 06/13/17 20:25 98.1 77 20 158/76 94 06/13/17 19:50 10.0 06/13/17 19:50 Aerosol 40 T Tube Intake and Output 06/12/17 06/12/17 06/13/17 15:00 23:00 07:00 Intake Total 760 ml 860 ml Output Total 250 ml 450 ml Balance 510 ml 410 ml Results Result Diagram: 06/13/17 0652 06/13/17 0652 ADDISON FREGOSO NP Jun 13, 2017 22:49
[2017-06-14] VITALS (14 sets, daily range): BP systolic 92–180; BP diastolic 47–97; PULSE 70–88; RESP 16–20
[2017-06-14] MEDS: METOCLOPRAMIDE 10 MG INJ IV SCH ×4 (01:00→17:14)
[2017-06-14] MEDS: HYDROCODONE/APAP (5/325) TAB GTB SCH ×4 (04:19→21:46)
[2017-06-14] MEDS: INSULIN ASPART [NOVOLOG] 3 ML PEN SC SCH ×4 (06:00→17:06)
[2017-06-14] MEDS: LEVOTHYROXINE 150 MCG TAB GTB SCH (06:32)
[2017-06-14] MEDS: LANSOPRAZOLE 30 MG CAP GTB SCH ×2 (06:32→17:14)
[2017-06-14 06:58] LABS: ABNORMAL IP MESSAGE 1; BASOPHIL # 0.1 10^3/ul (0.0-0.1); BASOPHILS % 0.7 % (0.0-2.0); EOSINOPHILS # 0.3 10^3/ul (0.0-0.5); EOSINOPHILS % 1.9 % (0.0-7.0); HEMATOCRIT 32.2 % (37.0-47.0); HEMOGLOBIN 10.1 g/dl (12.0-16.0); LYMPHOCYTES # 1.5 10^3/ul (0.8-2.9); LYMPHOCYTES % 8.1 % (15.0-51.0); MEAN CORPUSCULAR HEMOGLOBIN 30.5 pg (29.0-33.0); MEAN CORPUSCULAR HGB CONC 31.4 g/dl (32.0-37.0); MEAN CORPUSCULAR VOLUME 97.3 fl (82.0-101.0); MEAN PLATELET VOLUME 9.6 fl (7.4-10.4); MONOCYTE # 1.6 10^3/ul (0.3-0.9); MONOCYTES % 8.7 % (0.0-11.0); NEUTROPHILS % 72.6 % (39.0-77.0); NUCLEATED RED BLOOD CELLS # 0.1 10^3/ul (0.0-0.0); NUCLEATED RED BLOOD CELLS% 0.4 /100WBC (0.0-0.0); PLATELET COUNT 398 10^3/UL (140-415); RED BLOOD COUNT 3.31 10^6/ul (4.20-5.40); RED CELL DISTRIBUTION WIDTH 18.1 % (11.5-14.5); WHITE BLOOD COUNT 18.2 10^3/ul (4.8-10.8)
[2017-06-14 06:59] LABS: POSITIVE DIFF @See below
[2017-06-14] MEDS: LEVALBUTEROL (HFA) 15 GM INHALER INH SCH (08:00)
--- NOTE | 2017-06-14 08:44 | PN ---
Date/Time of Note Date/Time of Note DATE: 06/14/17 TIME: 08:39 Assessment/Plan Lines/Catheters IV Catheter Type (from [facility]): PERMACATH Mims in Place (from [facility]): Yes Assessment/Plan Chief Complaint/Hosp Course 1. Cholelithiasis: Tolerating tube feeds; no abdominal pain/discomfort/bloating ; +bowel function -No surgical intervention required at this time 2. Pneumonia: Recurrent +sputum cultures; appears comfortable, no fevers, s/p abx; CXR: with nodule-possible aspirated tooth; ct chest: no foreign body -pulmonary toilet -wean as tolerated 3. Vent dependent respiratory failure: 2/2 aspiration PNA+ CHF;reintubated and extubated, coded 04/21 and 05/01; off vent, on tpiece -as above 4. KEYONNA: now with HD with + urine output; arranging for outpatient HD; HD today -judicious fluid management -avoid nephrotoxic agents 5. Uncontrolled Afib: s/p amiodarone drip, on oral amiodarone; episodes of Afib ; currently SR -medical optimization 6. Leukocytosis with lactic acidosis: 2/2 pneumonia +/- steroids vs.fungemia vs other (urine, repeat blood cultures negative);up today -per ID 7. Macrocytic anemia: chronic vs. dilutional vs. acute bleed vs. b12/folate deficiency; hh stable -monitor -Transfuse as needed 8. Electrolyte imbalance: (hyponatremia, hypokalemia); improved -electrolyte optimization 9. CHF: BNP elevated -judicious fluid management -medical optimization 10. Adrenal Insufficiency -solucortef 11. Hypothyroidism -on synthroid 12. Hypoalbuminemia: 2/2 malnutrition +/- inflammation; decreased; tolerating tf ; -nutrition optimization -as above Patient seen and examined in collaboration with Dr. Justus Antonio. Thank you Problems: Subjective 24 Hr Interval Summary Awake, comfortable. Off of vent support, with good oxygenation. Leukocytosis. No fevers, chills, sob, cp, palpitations, change in tele rhythm, n/v/d/dysuria. +uop. Exam/Review of Systems Vital Signs Vitals Vital Signs Date Time Temp Pulse Resp B/P Pulse Ox O2 Delivery O2 Flow Rate FiO2 06/14/17 08:38 88 06/14/17 07:43 97.8 20 158/77 100 06/14/17 05:21 Aerosol 10.0 40 T Tube Intake and Output 06/13/17 06/13/17 06/14/17 15:00 23:00 07:00 Intake Total 550 ml 1080 ml 1110 ml Output Total 3500 ml 800 ml 350 ml Balance -2950 ml 280 ml 760 ml Exam Free Text/Dictation Constitutional: fully awake, alert pleasant Head: atraumatic, normocephalic Eyes: PERRL, nl lids, nl sclera; ENMT: No mucosa pink and moist (pink and moist with healed perioral lesions), tooth missing, mild facial swelling Neck: non-tender, supple, tracheostomy Respiratory: diminished, weaned off vent, min sputum Cardiovascular: nl pulses, regular rate and rhythm, Gastrointestinal: non distended, GT tubes site no erythema, no drainage, non tenderness, bowel sounds x 4 quads, soft; tf ongoing Genitourinary - Female: nl external genitalia; +uop per mims with yellow output with sediments Musculoskeletal: nl extremities to inspection, min edema Extremities: normal pulses, bilateral upper/lower extremity edema 1+; improved extremity edema Neurological: responsive Skin: nl turgor, No rash or lesions Lymph: nl lymph node Results Result Diagram: 06/14/17 0612 06/13/17 0652 ADDISON FREGOSO NP Jun 14, 2017 08:44
[2017-06-14] MEDS: AMIODARONE 200 MG TAB GTB SCH ×2 (08:56→21:46)
[2017-06-14] MEDS: CEFEPIME 1GM/50 ML (PMX) 50 ML IVPB SCH (08:56)
[2017-06-14] MEDS: VITAMIN B COMPLEX/VIT C CAP PO SCH (08:56)
[2017-06-14] MEDS: CITALOPRAM 20 MG TAB NGT SCH (08:57)
[2017-06-14] MEDS: ASPIRIN 81 MG TAB NGT SCH (08:57)
[2017-06-14] MEDS: VITAMIN A & D 5 GM OINT PACKET TOP SCH ×3 (08:57→21:46)
[2017-06-14] MEDS: MULTIVITAMINS 30 ML CUP GTB SCH (08:57)
[2017-06-14] MEDS: CHLORHEXIDINE GLUCONATE 15 ML UD CUP MT SCH ×2 (08:58→21:46)
[2017-06-14] MEDS: METOPROLOL 25 MG TAB GTB SCH ×4 (08:58→21:46)
[2017-06-14] MEDS: ALBUTEROL/IPRATROPIUM (NEB) 3 ML AMP HHN PRN (09:42)
--- NOTE | 2017-06-14 11:23 | PN ---
Date/Time of Note Date/Time of Note DATE: 06/14/17 TIME: 11:16 Assessment/Plan VTE Prophylaxis VTE Prophylaxis Intervention: other Lines/Catheters IV Catheter Type (from Nrs): PERMACATH Central line still needed: Yes Urinary Cath still in place: Yes Reason Cath still needed: urinary retention Assessment/Plan Chief Complaint/Hosp Course SUBJECTIVE DATA: The patient is currently off the vent. No other events noted overnight. No hemoptysis, hematemesis, hematochezia, new rash, fever, chills, diaphoresis, vomiting. last hd was yesterday. records were reviewed d/w and HD nurse cultures were reviewed OBJECTIVE DATA: HEENT: Head is normocephalic. NECK: Supple. HEART: Regular rate. LUNGS: Show diminished breath sounds at the base. ABDOMEN: Soft, nontender to palpation. No rebound or guarding. EXTREMITIES: Negative for clubbing, cyanosis. Positive edema. DERMATOLOGIC: Clean. No rashes. MUSCULOSKELETAL: No joint effusion. NEUROLOGIC: Unchanged exam. MEDICATIONS: Reviewed. ASSESSMENT AND PLAN: 1. Ventilatory-dependent respiratory failure. weaned down to trach. Continue to monitor. 2. End-stage renal disease. Continue hemodialys in am. 3. Volume overload. Continue ultrafiltration with dialysis. 4. Anemia. Continue to monitor H and H levels. Continue Epogen. 5. Sepsis, status post shock. The patient has completed antibiotic course. 6. Leukocytosis. due to UTI. will dc vanco 7. Encephalopathy. The patient's mental status is slowly improving. 8. Hypothyroidism. Continue Synthroid. 9. Hyponatremia, improved. 10. Hypokalemia, resolved. 11. Dysphagia, status post percutaneous endoscopic gastrostomy. Continue tube feeding. 12. History of thyroid cancer with tracheomalacia. The patient has been evaluated by ENT. Continue to monitor. 13. Status post gastrointestinal bleed. 14. Adrenal insufficiency. 15. Gastrointestinal and deep venous thrombosis prophylaxis. Problems: Exam/Review of Systems Vital Signs Vitals Vital Signs Date Time Temp Pulse Resp B/P Pulse Ox O2 Delivery O2 Flow Rate FiO2 06/14/17 09:40 10.0 40 06/14/17 09:40 77 18 99 Aerosol T Tube 06/14/17 07:43 97.8 158/77 Intake and Output 06/13/17 06/13/17 06/14/17 15:00 23:00 07:00 Intake Total 550 ml 1080 ml 1110 ml Output Total 3500 ml 800 ml 350 ml Balance -2950 ml 280 ml 760 ml Results Result Diagram: 06/14/17 0612 06/13/17 0652 Results 24 hrs Laboratory Tests Test 06/13/17 12:51 06/13/17 18:15 06/13/17 23:35 06/14/17 06:12 Bedside Glucose 163 136 127 White Blood Count 18.2 H Red Blood Count 3.31 L Hemoglobin 10.1 L Hematocrit 32.2 L Mean Corpuscular Volume 97.3 Mean Corpuscular Hemoglobin 30.5 Mean Corpuscular Hemoglobin Concent 31.4 L Red Cell Distribution Width 18.1 H Platelet Count 398 Mean Platelet Volume 9.6 Neutrophils % 72.6 Lymphocytes % 8.1 L Monocytes % 8.7 Eosinophils % 1.9 Basophils % 0.7 Nucleated Red Blood Cells % 0.4 H Neutrophils # (Manual) 13.3 H Lymphocytes # 1.5 Monocytes # 1.6 H Eosinophils # 0.3 Basophils # 0.1 Nucleated Red Blood Cells # 0.1 H Test 06/14/17 06:38 Bedside Glucose 151 Medications Medications Current Medications Metoprolol Tartrate (Lopressor) 5 mg Q4H PRN IV HR>110 Hold SBP<110 Last administered on 04/20/17 17:36; Admin Dose 5 MG; Start 04/11/17 at 13:30 Miscellaneous Information 1 ea NOTE XX ; Start 04/11/17 at 16:30 Glucose (Glutose) 15 gm Q15M PRN PO DECREASED GLUCOSE Last administered on 05/07 03:27; Admin Dose 15 GM; Start 04/11/17 at 16:30 Glucose (Glutose) 22.5 gm Q15M PRN PO DECREASED GLUCOSE; Start 04/11/17 at 16: 30 Dextrose (D50w Syringe) 25 ml Q15M PRN IV DECREASED GLUCOSE Last administered on 04/12/17 23:56; Admin Dose 25 ML; Start 04/11/17 at 16:30 Dextrose (D50w Syringe) 50 ml Q15M PRN IV DECREASED GLUCOSE; Start 04/11/17 at 16:30 Glucagon (Glucagen) 1 mg Q15M PRN IM DECREASED GLUCOSE; Start 04/11/17 at 16:30 Glucose (Glutose) 15 gm Q15M PRN BUCCAL DECREASED GLUCOSE; Start 04/11/17 at 16 :30 Metoclopramide HCl (Reglan) 10 mg Q6 IV Last administered on 06/14/17 06:32; Admin Dose 10 MG; Start 04/12/17 at 18:00 Insulin Aspart (Novolog Insulin Pen) NOVOLOG *MILD* ALGORI... Q6H SC Last administered on 06/13/17 12:59; Admin Dose 1 UNIT; Start 04/15/17 at 00:00 IV Flush (NS 10 ml) 10 ml PRN PRN IV FLUSH LINE Last administered on 06/12/17 23:32; Admin Dose 10 ML; Start 04/15/17 at 13:00 Amiodarone HCl (Cordarone) 200 mg BID GTB Last administered on 06/14/17 08:56; Admin Dose 200 MG; Start 04/16/17 at 13:00 Citalopram Hydrobromide (Celexa) 20 mg DAILY NGT Last administered on 06/14/17 08:57; Admin Dose 20 MG; Start 04/19/17 at 09:00 Hydralazine HCl (Apresoline) 20 mg Q6H PRN IV sbp ABOVE 160 Last administered on 06/03/17 04:17; Admin Dose 20 MG; Start 04/18/17 at 18:30 Chlorhexidine Gluconate (Peridex) 15 ml BID MT Last administered on 06/14/17 08 :58; Admin Dose 15 ML; Start 04/22/17 at 21:00 Vitamin A/Vitamin D (Vitamin A & D Oint) 1 applic TID TOP Last administered on 06/14/17 08:57; Admin Dose 1 APPLIC; Start 04/22/17 at 21:00 Vitamin A/Vitamin D (Vitamin A & D Oint) 1 applic TID PRN TOP DRYNESS Last administered on 04/22/17 15:29; Admin Dose 1 APPLIC; Start 04/22/17 at 15:00 Acetaminophen/ Hydrocodone Bitart ([place] (5/325)) 1 tab Q6H GTB Last administered on 06/14/17 08:57; Admin Dose 1 TAB; Start 04/22/17 at 21:30 Diltiazem HCl 5 mg 5 mg Q1H PRN IV HEART RATE GREATER THAN 120 Last administered on 04/29/17 06:17; Admin Dose 5 MG; Start 04/29/17 at 05:00 Sodium Chloride 1,000 ml @ 0 mls/hr Q0M IV Last administered on 05/01/17 03: 00; Admin Dose 1,000 MLS/HR; Start 05/01/17 at 03:00 Sodium Chloride 1,000 ml @ 0 mls/hr Q0M IV Last administered on 05/01/17 04: 00; Admin Dose 1,000 MLS/HR; Start 05/01/17 at 03:30 Diltiazem HCl (Cardizem-D5W 125 Mg/125 ml Drip) 125 ml @ 5 mls/hr TITRATE IV Last administered on 05/02/17 19:11; Admin Dose 5 MLS/HR; Start 05/02/17 at 19: 00 Metoprolol Tartrate (Lopressor) 25 mg QID GTB Last administered on 06/14/17 08: 58; Admin Dose 25 MG; Start 05/07/17 at 09:00 Vitamin B Complex/ Vitamin C (Berocca) 1 cap DAILY PO Last administered on 08:56; Admin Dose 1 CAP; Start 05/13/17 at 09:00 Aspirin (Aspirin) 81 mg DAILY NGT Last administered on 06/14/17 08:57; Admin Dose 81 MG; Start 05/19/17 at 09:00 Lansoprazole (Prevacid) 30 mg BID@06,18 GTB Last administered on 06/14/17 06:32 ; Admin Dose 30 MG; Start 05/20/17 at 18:00 Multivitamins (Multivitamin) 30 ml DAILY GTB Last administered on 06/14/17 08: 57; Admin Dose 30 ML; Start 05/24/17 at 09:00 Epoetin Eprry (Epogen (Esrd)) 12,000 units TuThSa@17 SC Last administered on 17:48; Admin Dose 12,000 UNITS; Start 06/05/17 at 17:00 Levothyroxine Sodium 150 mcg 150 mcg DAILY@06 GTB Last administered on 06:32; Admin Dose 150 MCG; Start 06/09/17 at 06:00 Cefepime HCl (Maxipime 1gm/50 ml (Pmx)) 50 ml @ 100 mls/hr DAILY IVPB Last administered on 06/14/17t 08:56; Admin Dose 100 MLS/HR; Start 06/13/17 at 09:30 DERECK QUINTERO DO Jun 14, 2017 11:23
--- NOTE | 2017-06-14 11:41 | CONS ---
Date/Time of Note Date/Time of Note DATE: 06/14/17 TIME: 11:39 Consult Date/Type/Reason Admit Date/Time Apr 11, 2017 at 11:28 Initial Consult Date 04/12/17 Type of Consultation: Pulmonary Ordering Provider: NINA MACIEL DO Subjective Remains stable off mechanical ventilation Objective Vital Signs Date Time Temp Pulse Resp B/P Pulse Ox O2 Delivery O2 Flow Rate FiO2 06/14/17 11:35 98.1 77 20 180/81 98 06/14/17 09:40 10.0 40 06/14/17 09:40 Aerosol T Tube Intake and Output 06/13/17 06/13/17 06/14/17 15:00 23:00 07:00 Intake Total 550 ml 1080 ml 1110 ml Output Total 3500 ml 800 ml 350 ml Balance -2950 ml 280 ml 760 ml Exam PHYSICAL EXAMINATION GENERAL: Elderly lady on cool aerosol VITAL SIGNS: see below. HEENT: Pupils equal, round, and reactive to light. Tracheostomy site clean and intact. CARDIAC: S1, S2, 1/6 systolic ejection murmur CHEST: Diminished air entry bilaterally. ABDOMEN: Mildly distended. Bowel sounds present no guarding or rebound EXTREMITIES: No cyanosis, clubbing edema +1 NEUROLOGIC: Generalized weakness Results/Medications Result Diagram: 06/14/17 0612 06/13/17 0652 Results 24 hrs Laboratory Tests Test 06/13/17 12:51 06/13/17 18:15 06/13/17 23:35 06/14/17 06:12 Bedside Glucose 163 136 127 White Blood Count 18.2 H Red Blood Count 3.31 L Hemoglobin 10.1 L Hematocrit 32.2 L Mean Corpuscular Volume 97.3 Mean Corpuscular Hemoglobin 30.5 Mean Corpuscular Hemoglobin Concent 31.4 L Red Cell Distribution Width 18.1 H Platelet Count 398 Mean Platelet Volume 9.6 Neutrophils % 72.6 Lymphocytes % 8.1 L Monocytes % 8.7 Eosinophils % 1.9 Basophils % 0.7 Nucleated Red Blood Cells % 0.4 H Neutrophils # (Manual) 13.3 H Lymphocytes # 1.5 Monocytes # 1.6 H Eosinophils # 0.3 Basophils # 0.1 Nucleated Red Blood Cells # 0.1 H Test 06/14/17 06:38 Bedside Glucose 151 Medications Current Medications Metoprolol Tartrate (Lopressor) 5 mg Q4H PRN IV HR>110 Hold SBP<110 Last administered on 04/20/17 17:36; Admin Dose 5 MG; Start 04/11/17 at 13:30 Miscellaneous Information 1 ea NOTE XX ; Start 04/11/17 at 16:30 Glucose (Glutose) 15 gm Q15M PRN PO DECREASED GLUCOSE Last administered on 05/07 03:27; Admin Dose 15 GM; Start 04/11/17 at 16:30 Glucose (Glutose) 22.5 gm Q15M PRN PO DECREASED GLUCOSE; Start 04/11/17 at 16: 30 Dextrose (D50w Syringe) 25 ml Q15M PRN IV DECREASED GLUCOSE Last administered on 04/12/17 23:56; Admin Dose 25 ML; Start 04/11/17 at 16:30 Dextrose (D50w Syringe) 50 ml Q15M PRN IV DECREASED GLUCOSE; Start 04/11/17 at 16:30 Glucagon (Glucagen) 1 mg Q15M PRN IM DECREASED GLUCOSE; Start 04/11/17 at 16:30 Glucose (Glutose) 15 gm Q15M PRN BUCCAL DECREASED GLUCOSE; Start 04/11/17 at 16 :30 Metoclopramide HCl (Reglan) 10 mg Q6 IV Last administered on 06/14/17 06:32; Admin Dose 10 MG; Start 04/12/17 at 18:00 Insulin Aspart (Novolog Insulin Pen) NOVOLOG *MILD* ALGORI... Q6H SC Last administered on 06/13/17 12:59; Admin Dose 1 UNIT; Start 04/15/17 at 00:00 IV Flush (NS 10 ml) 10 ml PRN PRN IV FLUSH LINE Last administered on 06/12/17 23:32; Admin Dose 10 ML; Start 04/15/17 at 13:00 Amiodarone HCl (Cordarone) 200 mg BID GTB Last administered on 06/14/17 08:56; Admin Dose 200 MG; Start 04/16/17 at 13:00 Citalopram Hydrobromide (Celexa) 20 mg DAILY NGT Last administered on 06/14/17 08:57; Admin Dose 20 MG; Start 04/19/17 at 09:00 Hydralazine HCl (Apresoline) 20 mg Q6H PRN IV sbp ABOVE 160 Last administered on 06/03/17 04:17; Admin Dose 20 MG; Start 04/18/17 at 18:30 Chlorhexidine Gluconate (Peridex) 15 ml BID MT Last administered on 06/14/17 08 :58; Admin Dose 15 ML; Start 04/22/17 at 21:00 Vitamin A/Vitamin D (Vitamin A & D Oint) 1 applic TID TOP Last administered on 06/14/17 08:57; Admin Dose 1 APPLIC; Start 04/22/17 at 21:00 Vitamin A/Vitamin D (Vitamin A & D Oint) 1 applic TID PRN TOP DRYNESS Last administered on 04/22/17 15:29; Admin Dose 1 APPLIC; Start 04/22/17 at 15:00 Acetaminophen/ Hydrocodone Bitart ([place] (5/325)) 1 tab Q6H GTB Last administered on 06/14/17 08:57; Admin Dose 1 TAB; Start 04/22/17 at 21:30 Diltiazem HCl 5 mg 5 mg Q1H PRN IV HEART RATE GREATER THAN 120 Last administered on 04/29/17 06:17; Admin Dose 5 MG; Start 04/29/17 at 05:00 Sodium Chloride 1,000 ml @ 0 mls/hr Q0M IV Last administered on 05/01/17 03: 00; Admin Dose 1,000 MLS/HR; Start 05/01/17 at 03:00 Sodium Chloride 1,000 ml @ 0 mls/hr Q0M IV Last administered on 05/01/17 04: 00; Admin Dose 1,000 MLS/HR; Start 05/01/17 at 03:30 Diltiazem HCl (Cardizem-D5W 125 Mg/125 ml Drip) 125 ml @ 5 mls/hr TITRATE IV Last administered on 05/02/17 19:11; Admin Dose 5 MLS/HR; Start 05/02/17 at 19: 00 Metoprolol Tartrate (Lopressor) 25 mg QID GTB Last administered on 06/14/17 08: 58; Admin Dose 25 MG; Start 05/07/17 at 09:00 Vitamin B Complex/ Vitamin C (Berocca) 1 cap DAILY PO Last administered on 08:56; Admin Dose 1 CAP; Start 05/13/17 at 09:00 Aspirin (Aspirin) 81 mg DAILY NGT Last administered on 06/14/17 08:57; Admin Dose 81 MG; Start 05/19/17 at 09:00 Lansoprazole (Prevacid) 30 mg BID@06,18 GTB Last administered on 06/14/17 06:32 ; Admin Dose 30 MG; Start 05/20/17 at 18:00 Multivitamins (Multivitamin) 30 ml DAILY GTB Last administered on 06/14/17 08: 57; Admin Dose 30 ML; Start 05/24/17 at 09:00 Epoetin Perry (Epogen (Esrd)) 12,000 units TuThSa@17 SC Last administered on 17:48; Admin Dose 12,000 UNITS; Start 06/05/17 at 17:00 Levothyroxine Sodium 150 mcg 150 mcg DAILY@06 GTB Last administered on 06:32; Admin Dose 150 MCG; Start 06/09/17 at 06:00 Cefepime HCl (Maxipime 1gm/50 ml (Pmx)) 50 ml @ 100 mls/hr DAILY IVPB Last administered on 06/14/17 08:56; Admin Dose 100 MLS/HR; Start 06/13/17 at 09:30 Assessment/Plan Chief Complaint/Hosp Course Additional Assessment/Plan IMP: 1. Chronic respiratory failure now on cool aerosol 3. s/p Hypercapnic Respiratory Failure--likely due to critical illness myopathy/ neuropathy 4. s/p septic shock 5. Demand Ischemia 6. Cholecystitis 7. Encephalopathy toxic metabolic resolving 8. Persistent leukocytosis 9. End-stage renal failure requiring intermittent hemodialysis RECS: 1. Continue cool aerosol 2. BDs 3. TFs/Free H2O 4. Hemodialysis per nephrology Discussed with at bedside Problems: DARWIN CRAWFORD MD, [facility] Jun 14, 2017 11:41
[2017-06-14] MEDS: hydrALAzine 20 MG INJ IV PRN (12:08)
[2017-06-14] MEDS: ALBUTEROL/IPRATROPIUM (NEB) 3 ML AMP HHN SCH ×2 (14:07→20:31)
[2017-06-14] MEDS: EPOETIN 4000 UNITS/1 ML INJ (ESRD) SC SCH (17:15)
--- NOTE | 2017-06-14 18:25 | CONS ---
Date/Time of Note Date/Time of Note DATE: 06/14/17 TIME: 18:19 Assessment/Plan Assessment/Plan Chief Complaint/Hosp Course ID PROGRESS NOTE CURRENT ABX=> Vanco IV + Cefepime #2 24H INTERVAL SUMMARY/HOSPITAL COURSE * WBC rising -> Urine Cx (+)Proteus MDRO * Started back on ABX 06/13/17 * Recurrent line sepsis -> line changed PHYSICAL EXAMINATION: GENERAL: 66 yo F, stable on the Vent HEENT: Atraumatic, (+)Lip lesions well healed == Facial edema is much better NECK: (+)Trach in place secure to VENT CHEST: Rise symmetrical w/coarse BS, scattered rales/rhonchi ABDOMEN: Soft, peg EXTREMITIES: Warm, moves extremities ID ASSESSMENT: 66 yo F w/PMHx tongue cancer, chronic trach re-admit [facility] from [facility] with: 1. s/p Acute severe sepsis/shock on admission w/(+)fever, tachycardia, lactic acidosis, leukocytosis, (+)troponin leak = RESOLVED 1A. Leukocytosis persisting= + Vanco IV + Cefepime restarted 06/13/17=> URINE Cx (+)GNR Proteus Mirabilis MDRO * Fungemia => repeat BCx negative * s/p 06/03 GNR Femoral Line sepsis => Line DC'd patient without evidence of current sepsis 2. Anasarca w/increased facial edema/bilateral lip edema w/resolution of HSV lip lesions => IMPROVED 3. Acute respiratory failure = recurrent issue s/p intubation x3rd episode w/ extubation, now with Trach secure to Vent 3. 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 Acute CHF w/elevated BNP 8000 in setting tachycardia, sepsis, pulmonary edema on CXR 5. s/p Nausea w/emesis on admission -> RESOLVED -- This has been recurrent issue , etiology of recurrent ASP PNA/Pulm Sepsis * Query: DM Autonomic Gastroparesis * GERD 6. Cholelithiasis w/dilated CBD->HIDA scan (+cholecystitis 04/12/17=> s/p Mansi Drain 04/17/17, no surgery per GI => Asymptomatic/Stable 7. Acute renal failure = started on HD 8. Dysphagia sp PEG placement 9. Paroxysmal Afib 10. NSTEMI in setting sepsis, tachycardia, acute hypoxic respiratory failure, acute CHF exacerbation 11. Elevated glucose - iatrogenic diabetes while on IV steroids 12. Leukocytosis = partial steroids demargination 13. Lip lesions => consistent w/herpes simplex virus outbreak -> HEALED 14. s/p GIB associates with Acute on chronic anemia secondary to AVM ==> stopped , status post EGD on May 02 with injection of epinephrine 15. Recent (+)C.Diff on 03/07/16 (treated) w/(-)C.Diff 03/20/17 => Monitor for recurrent (-) MRSA Nares screen (04/03/17) INVASIVES: Trach, PEG Latif, RIJ p-cath 06/05 ABX ALLERGY: Iodine CURRENT ABX=>Vanco IV + Cefepime #2 She has completed a 10 day course for recurrent ASP PNA/sepsis s/p Flagyl, + Cefepime #10+ Colistin INH #10 => DC'd 05/19/17 Valtrex,-> DC 05/17 Cancidas -> DC 05/10 Merrem -> DC'd 05/08 She completed a 14 day course upon admission for ASP PNA was OFF ABX then re- aspirated * Merrem #14 total -> DC'd 04/26=> Restarted 05/08 ID PLAN=> * Give her dose of Fosfomycin 3mg GT x1 for MDRO Proteus Mirabilis UTI * Continue Vanco IV + Cefepime, will f/u tomorrow . . Problems: Consultation Date/Type/Reason Admit Date/Time Apr 11, 2017 at 11:28 Initial Consult Date 04/11/17 Type of Consultation: ID Referring Provider: NINA MACIEL DO Exam/Review of Systems Vital Signs Vitals Vital Signs Date Time Temp Pulse Resp B/P Pulse Ox O2 Delivery O2 Flow Rate FiO2 06/14/17 16:42 84 06/14/17 15:26 97.9 20 122/56 98 06/14/17 14:08 Aerosol 10.0 40 T Tube Intake and Output 06/13/17 06/13/17 06/14/17 14:59 22:59 06:59 Intake Total 550 ml 1080 ml 1110 ml Output Total 3500 ml 800 ml 350 ml Balance -2950 ml 280 ml 760 ml Results Result Diagram: 06/14/17 0612 06/13/17 0652 Results 24 hrs Laboratory Tests Test 06/13/17 23:35 06/14/17 06:12 06/14/17 06:38 06/14/17 12:02 Bedside Glucose 127 151 131 White Blood Count 18.2 H Red Blood Count 3.31 L Hemoglobin 10.1 L Hematocrit 32.2 L Mean Corpuscular Volume 97.3 Mean Corpuscular Hemoglobin 30.5 Mean Corpuscular Hemoglobin Concent 31.4 L Red Cell Distribution Width 18.1 H Platelet Count 398 Mean Platelet Volume 9.6 Neutrophils % 72.6 Lymphocytes % 8.1 L Monocytes % 8.7 Eosinophils % 1.9 Basophils % 0.7 Nucleated Red Blood Cells % 0.4 H Neutrophils # (Manual) 13.3 H Lymphocytes # 1.5 Monocytes # 1.6 H Eosinophils # 0.3 Basophils # 0.1 Nucleated Red Blood Cells # 0.1 H Test 06/14/17 17:05 Bedside Glucose 132 Medications Medications Current Medications Metoprolol Tartrate (Lopressor) 5 mg Q4H PRN IV HR>110 Hold SBP<110 Last administered on 04/20/17 17:36; Admin Dose 5 MG; Start 04/11/17 at 13:30 Miscellaneous Information 1 ea NOTE XX ; Start 04/11/17 at 16:30 Glucose (Glutose) 15 gm Q15M PRN PO DECREASED GLUCOSE Last administered on 05/07 03:27; Admin Dose 15 GM; Start 04/11/17 at 16:30 Glucose (Glutose) 22.5 gm Q15M PRN PO DECREASED GLUCOSE; Start 04/11/17 at 16: 30 Dextrose (D50w Syringe) 25 ml Q15M PRN IV DECREASED GLUCOSE Last administered on 04/12/17 23:56; Admin Dose 25 ML; Start 04/11/17 at 16:30 Dextrose (D50w Syringe) 50 ml Q15M PRN IV DECREASED GLUCOSE; Start 04/11/17 at 16:30 Glucagon (Glucagen) 1 mg Q15M PRN IM DECREASED GLUCOSE; Start 04/11/17 at 16:30 Glucose (Glutose) 15 gm Q15M PRN BUCCAL DECREASED GLUCOSE; Start 04/11/17 at 16 :30 Metoclopramide HCl (Reglan) 10 mg Q6 IV Last administered on 06/14/17 17:14; Admin Dose 10 MG; Start 04/12/17 at 18:00 Insulin Aspart (Novolog Insulin Pen) NOVOLOG *MILD* ALGORI... Q6H SC Last administered on 06/13/17 12:59; Admin Dose 1 UNIT; Start 04/15/17 at 00:00 IV Flush (NS 10 ml) 10 ml PRN PRN IV FLUSH LINE Last administered on 06/12/17 23:32; Admin Dose 10 ML; Start 04/15/17 at 13:00 Amiodarone HCl (Cordarone) 200 mg BID GTB Last administered on 06/14/17 08:56; Admin Dose 200 MG; Start 04/16/17 at 13:00 Citalopram Hydrobromide (Celexa) 20 mg DAILY NGT Last administered on 06/14/17 08:57; Admin Dose 20 MG; Start 04/19/17 at 09:00 Hydralazine HCl (Apresoline) 20 mg Q6H PRN IV sbp ABOVE 160 Last administered on 06/14/17 12:08; Admin Dose 20 MG; Start 04/18/17 at 18:30 Chlorhexidine Gluconate (Peridex) 15 ml BID MT Last administered on 06/14/17 08 :58; Admin Dose 15 ML; Start 04/22/17 at 21:00 Vitamin A/Vitamin D (Vitamin A & D Oint) 1 applic TID TOP Last administered on 06/14/17 12:08; Admin Dose 1 APPLIC; Start 04/22/17 at 21:00 Vitamin A/Vitamin D (Vitamin A & D Oint) 1 applic TID PRN TOP DRYNESS Last administered on 04/22/17 15:29; Admin Dose 1 APPLIC; Start 04/22/17 at 15:00 Acetaminophen/ Hydrocodone Bitart ([place] (5/325)) 1 tab Q6H GTB Last administered on 06/14/17 17:14; Admin Dose 1 TAB; Start 04/22/17 at 21:30 Diltiazem HCl 5 mg 5 mg Q1H PRN IV HEART RATE GREATER THAN 120 Last administered on 04/29/17 06:17; Admin Dose 5 MG; Start 04/29/17 at 05:00 Sodium Chloride 1,000 ml @ 0 mls/hr Q0M IV Last administered on 05/01/17 03: 00; Admin Dose 1,000 MLS/HR; Start 05/01/17 at 03:00 Sodium Chloride 1,000 ml @ 0 mls/hr Q0M IV Last administered on 05/01/17 04: 00; Admin Dose 1,000 MLS/HR; Start 05/01/17 at 03:30 Diltiazem HCl (Cardizem-D5W 125 Mg/125 ml Drip) 125 ml @ 5 mls/hr TITRATE IV Last administered on 05/02/17 19:11; Admin Dose 5 MLS/HR; Start 05/02/17 at 19: 00 Metoprolol Tartrate (Lopressor) 25 mg QID GTB Last administered on 06/14/17 17: 13; Admin Dose 25 MG; Start 05/07/17 at 09:00 Vitamin B Complex/ Vitamin C (Berocca) 1 cap DAILY PO Last administered on 08:56; Admin Dose 1 CAP; Start 05/13/17 at 09:00 Aspirin (Aspirin) 81 mg DAILY NGT Last administered on 06/14/17 08:57; Admin Dose 81 MG; Start 05/19/17 at 09:00 Lansoprazole (Prevacid) 30 mg BID@18 GTB Last administered on 06/14/17 17:14 ; Admin Dose 30 MG; Start 05/20/17 at 18:00 Multivitamins (Multivitamin) 30 ml DAILY GTB Last administered on 06/14/17 08: 57; Admin Dose 30 ML; Start 05/24/17 at 09:00 Epoetin Perry (Epogen (Esrd)) 12,000 units TuThSa@17 SC Last administered on 06/14 17:15; Admin Dose 12,000 UNITS; Start 06/05/17 at 17:00 Levothyroxine Sodium 150 mcg 150 mcg DAILY@06 GTB Last administered on 9/2/ 17at 06:32; Admin Dose 150 MCG; Start 06/09/17 at 06:00 Cefepime HCl (Maxipime 1gm/50 ml (Pmx)) 50 ml @ 100 mls/hr DAILY IVPB Last administered on 06/14/17t 08:56; Admin Dose 100 MLS/HR; Start 06/13/17 at 09:30 MARGOT WILLS NP Jun 14, 2017 18:25
[2017-06-14] MEDS ORDERED: FOSFOMYCIN 3 GM PACKET PO ONE (19:30)
[2017-06-15] VITALS (20 sets, daily range): BP systolic 78–154; BP diastolic 42–70; PULSE 74–98; RESP 17–20
[2017-06-15] MEDS: METOCLOPRAMIDE 10 MG INJ IV SCH ×5 (00:05→23:54)
[2017-06-15] MEDS: INSULIN ASPART [NOVOLOG] 3 ML PEN SC SCH ×5 (00:12→23:53)
[2017-06-15] MEDS: ALBUTEROL/IPRATROPIUM (NEB) 3 ML AMP HHN SCH ×4 (01:49→19:56)
[2017-06-15] MEDS: HYDROCODONE/APAP (5/325) TAB GTB SCH ×4 (03:30→21:27)
[2017-06-15] MEDS: LEVOTHYROXINE 150 MCG TAB GTB SCH (05:55)
[2017-06-15] MEDS: LANSOPRAZOLE 30 MG CAP GTB SCH ×2 (05:55→17:11)
[2017-06-15] MEDS: ASPIRIN 81 MG TAB NGT SCH (09:02)
[2017-06-15] MEDS: CHLORHEXIDINE GLUCONATE 15 ML UD CUP MT SCH ×2 (09:02→21:26)
[2017-06-15] MEDS: CEFEPIME 1GM/50 ML (PMX) 50 ML IVPB SCH (09:02)
[2017-06-15] MEDS: VITAMIN B COMPLEX/VIT C CAP PO SCH (09:02)
[2017-06-15] MEDS: MULTIVITAMINS 30 ML CUP GTB SCH (09:02)
[2017-06-15] MEDS: VITAMIN A & D 5 GM OINT PACKET TOP SCH ×3 (09:02→21:26)
[2017-06-15] MEDS: CITALOPRAM 20 MG TAB NGT SCH (09:02)
--- NOTE | 2017-06-15 09:18 | CONS ---
Date/Time of Note Date/Time of Note DATE: 06/15/17 TIME: 09:17 Consult Date/Type/Reason Admit Date/Time Apr 11, 2017 at 11:28 Initial Consult Date 04/12/17 Type of Consultation: Pulm Ordering Provider: NINA MACIEL DO Subjective Febrile this morning remains off vent on CA; Objective Vital Signs Date Time Temp Pulse Resp B/P Pulse Ox O2 Delivery O2 Flow Rate FiO2 06/15/17 08:21 81 06/15/17 07:59 100.1 18 134/57 99 06/15/17 07:50 6.0 28 06/15/17 07:50 Aerosol T Tube Intake and Output 06/14/17 06/14/17 06/15/17 15:00 23:00 07:00 Intake Total 50 ml 860 ml 1010 ml Output Total 300 ml 200 ml Balance 50 ml 560 ml 810 ml Exam PHYSICAL EXAMINATION GENERAL: Elderly lady on CA via tracheostomy VITAL SIGNS: see below. HEENT: Pupils equal, round, and reactive to light. Tracheostomy site clean and intact. CARDIAC: S1, S2, 1/6 systolic ejection murmur CHEST: Diminished air entry bilaterally. ABDOMEN: Mildly distended. Bowel sounds present no guarding or rebound EXTREMITIES: No cyanosis, clubbing edema +1 NEUROLOGIC: Generalized weakness Results/Medications Result Diagram: 06/14/17 0612 06/13/17 0652 Results 24 hrs Laboratory Tests Test 06/14/17 12:02 06/14/17 17:05 06/15/17 00:03 06/15/17 05:48 Bedside Glucose 131 132 150 Lab Scanned Report BLOOD TRANSFUSION Test 06/15/17 06:10 06/15/17 06:30 Bedside Glucose 102 Thyroid Stimulating Hormone (TSH) 47.900 H Medications Current Medications Metoprolol Tartrate (Lopressor) 5 mg Q4H PRN IV HR>110 Hold SBP<110 Last administered on 04/20/17 17:36; Admin Dose 5 MG; Start 04/11/17 at 13:30 Miscellaneous Information 1 ea NOTE XX ; Start 04/11/17 at 16:30 Glucose (Glutose) 15 gm Q15M PRN PO DECREASED GLUCOSE Last administered on 05/07 03:27; Admin Dose 15 GM; Start 04/11/17 at 16:30 Glucose (Glutose) 22.5 gm Q15M PRN PO DECREASED GLUCOSE; Start 04/11/17 at 16: 30 Dextrose (D50w Syringe) 25 ml Q15M PRN IV DECREASED GLUCOSE Last administered on 04/12/17 23:56; Admin Dose 25 ML; Start 04/11/17 at 16:30 Dextrose (D50w Syringe) 50 ml Q15M PRN IV DECREASED GLUCOSE; Start 04/11/17 at 16:30 Glucagon (Glucagen) 1 mg Q15M PRN IM DECREASED GLUCOSE; Start 04/11/17 at 16:30 Glucose (Glutose) 15 gm Q15M PRN BUCCAL DECREASED GLUCOSE; Start 04/11/17 at 16 :30 Metoclopramide HCl (Reglan) 10 mg Q6 IV Last administered on 06/15/17 05:56; Admin Dose 10 MG; Start 04/12/17 at 18:00 Insulin Aspart (Novolog Insulin Pen) NOVOLOG *MILD* ALGORI... Q6H SC Last administered on 06/15/17 00:12; Admin Dose 1 UNIT; Start 04/15/17 at 00:00 IV Flush (NS 10 ml) 10 ml PRN PRN IV FLUSH LINE Last administered on 06/12/17 23:32; Admin Dose 10 ML; Start 04/15/17 at 13:00 Amiodarone HCl (Cordarone) 200 mg BID GTB Last administered on 06/14/17 21:46; Admin Dose 200 MG; Start 04/16/17 at 13:00 Citalopram Hydrobromide (Celexa) 20 mg DAILY NGT Last administered on 06/14/17 08:57; Admin Dose 20 MG; Start 04/19/17 at 09:00 Hydralazine HCl (Apresoline) 20 mg Q6H PRN IV sbp ABOVE 160 Last administered on 06/14/17 12:08; Admin Dose 20 MG; Start 04/18/17 at 18:30 Chlorhexidine Gluconate (Peridex) 15 ml BID MT Last administered on 06/14/17 21 :46; Admin Dose 15 ML; Start 04/22/17 at 21:00 Vitamin A/Vitamin D (Vitamin A & D Oint) 1 applic TID TOP Last administered on 06/14/17 21:46; Admin Dose 1 APPLIC; Start 04/22/17 at 21:00 Vitamin A/Vitamin D (Vitamin A & D Oint) 1 applic TID PRN TOP DRYNESS Last administered on 04/22/17 15:29; Admin Dose 1 APPLIC; Start 04/22/17 at 15:00 Acetaminophen/ Hydrocodone Bitart ([place] (5/325)) 1 tab Q6H GTB Last administered on 06/14/17 21:46; Admin Dose 1 TAB; Start 04/22/17 at 21:30 Diltiazem HCl 5 mg 5 mg Q1H PRN IV HEART RATE GREATER THAN 120 Last administered on 04/29/17 06:17; Admin Dose 5 MG; Start 04/29/17 at 05:00 Sodium Chloride 1,000 ml @ 0 mls/hr Q0M IV Last administered on 05/01/17 03: 00; Admin Dose 1,000 MLS/HR; Start 05/01/17 at 03:00 Sodium Chloride 1,000 ml @ 0 mls/hr Q0M IV Last administered on 05/01/17 04: 00; Admin Dose 1,000 MLS/HR; Start 05/01/17 at 03:30 Diltiazem HCl (Cardizem-D5W 125 Mg/125 ml Drip) 125 ml @ 5 mls/hr TITRATE IV Last administered on 05/02/17 19:11; Admin Dose 5 MLS/HR; Start 05/02/17 at 19: 00 Metoprolol Tartrate (Lopressor) 25 mg QID GTB Last administered on 06/14/17 21: 46; Admin Dose 25 MG; Start 05/07/17 at 09:00 Vitamin B Complex/ Vitamin C (Berocca) 1 cap DAILY PO Last administered on 08:56; Admin Dose 1 CAP; Start 05/13/17 at 09:00 Aspirin (Aspirin) 81 mg DAILY NGT Last administered on 06/14/17 08:57; Admin Dose 81 MG; Start 05/19/17 at 09:00 Lansoprazole (Prevacid) 30 mg BID@06,18 GTB Last administered on 06/15/17 05:55 ; Admin Dose 30 MG; Start 05/20/17 at 18:00 Multivitamins (Multivitamin) 30 ml DAILY GTB Last administered on 06/14/17 08: 57; Admin Dose 30 ML; Start 05/24/17 at 09:00 Epoetin Perry (Epogen (Esrd)) 12,000 units TuThSa@17 SC Last administered on 06/14 17:15; Admin Dose 12,000 UNITS; Start 06/05/17 at 17:00 Levothyroxine Sodium 150 mcg 150 mcg DAILY@06 GTB Last administered on 05:55; Admin Dose 150 MCG; Start 06/09/17 at 06:00 Cefepime HCl 50 ml @ 100 mls/hr DAILY IVPB Last administered on 06/14/17 08:56 ; Admin Dose 100 MLS/HR; Start 06/13/17 at 09:30 Albumin Human (Albumin Human 25%) 100 ml @ 100 mls/hr ONCE ONCE IV ; Start 06/15/17 at 09:30; Stop 06/15/17 at 10:29; Status UNV Assessment/Plan Chief Complaint/Hosp Course Additional Assessment/Plan IMP: 1. Chronic respiratory failure now on cool aerosol 3. s/p Hypercapnic Respiratory Failure--likely due to critical illness myopathy/ neuropathy 4. s/p septic shock, on going sepsis. 5. Demand Ischemia 6. s/p Cholecystitis 7. Encephalopathy toxic metabolic resolving 8. End-stage renal failure requiring intermittent hemodialysis RECS: 1. Continue cool aerosol 2. BDs 3. TFs/Free H2O 4. Hemodialysis per nephrology 5. Abx per ID, recent results noted. Problems: DARWIN CRAWFORD MD, [facility] Jun 15, 2017 09:18
[2017-06-15] MEDS ORDERED: ALBUMIN HUMAN 25% 100 ML IV ONE (09:30)
--- NOTE | 2017-06-15 09:45 | CONS ---
Date/Time of Note Date/Time of Note DATE: 06/15/17 TIME: 09:43 Assessment/Plan Assessment/Plan Problems: (1) Hypothyroidism Status: Chronic Comment: Her TSH is responding to the change in dosage of levothyroxine elevated a leisurely pace. We have room here to move and as such I will take the dosage 275 mcg a day. She needs repeat free T4 and TSH roughly 2 weeks. Qualifiers: Hypothyroidism type: acquired Qualified Code: E03.9 - Acquired hypothyroidism (2) Steroid dependence Status: Resolved Comment: Stable off of therapy. Please give her medicines if she becomes stressed ill Consultation Date/Type/Reason Admit Date/Time Apr 11, 2017 at 11:28 Initial Consult Date 04/14/17 Type of Consultation: Endocrinology Reason for Consultation Acquired hypothyroidism; iatrogenic adrenal insufficiency Referring Provider: NINA MACIEL DO 24 HR Interval Summary Constitutional: no complaints Exam/Review of Systems Vital Signs Vitals Vital Signs Date Time Temp Pulse Resp B/P Pulse Ox O2 Delivery O2 Flow Rate FiO2 06/15/17 08:21 81 06/15/17 07:59 100.1 18 134/57 99 06/15/17 07:50 6.0 28 06/15/17 07:50 Aerosol T Tube Intake and Output 06/14/17 06/14/17 06/15/17 15:00 23:00 07:00 Intake Total 50 ml 860 ml 1010 ml Output Total 300 ml 200 ml Balance 50 ml 560 ml 810 ml Results No Changes Result Diagram: 06/14/17 0612 06/13/17 0652 Results 24 hrs Laboratory Tests Test 06/14/17 12:02 06/14/17 17:05 06/15/17 00:03 06/15/17 05:48 Bedside Glucose 131 132 150 Lab Scanned Report BLOOD TRANSFUSION Test 06/15/17 06:10 06/15/17 06:30 Bedside Glucose 102 Thyroid Stimulating Hormone (TSH) 47.900 H Medications Medications Current Medications Metoprolol Tartrate (Lopressor) 5 mg Q4H PRN IV HR>110 Hold SBP<110 Last administered on 04/20/17t 17:36; Admin Dose 5 MG; Start 04/11/17 at 13:30 Miscellaneous Information 1 ea NOTE XX ; Start 04/11/17 at 16:30 Glucose (Glutose) 15 gm Q15M PRN PO DECREASED GLUCOSE Last administered on 05/07 03:27; Admin Dose 15 GM; Start 04/11/17 at 16:30 Glucose (Glutose) 22.5 gm Q15M PRN PO DECREASED GLUCOSE; Start 04/11/17 at 16: 30 Dextrose (D50w Syringe) 25 ml Q15M PRN IV DECREASED GLUCOSE Last administered on 04/12/17 23:56; Admin Dose 25 ML; Start 04/11/17 at 16:30 Dextrose (D50w Syringe) 50 ml Q15M PRN IV DECREASED GLUCOSE; Start 04/11/17 at 16:30 Glucagon (Glucagen) 1 mg Q15M PRN IM DECREASED GLUCOSE; Start 04/11/17 at 16:30 Glucose (Glutose) 15 gm Q15M PRN BUCCAL DECREASED GLUCOSE; Start 04/11/17 at 16 :30 Metoclopramide HCl (Reglan) 10 mg Q6 IV Last administered on 06/15/17 05:56; Admin Dose 10 MG; Start 04/12/17 at 18:00 Insulin Aspart (Novolog Insulin Pen) NOVOLOG *MILD* ALGORI... Q6H SC Last administered on 06/15/17 00:12; Admin Dose 1 UNIT; Start 04/15/17 at 00:00 IV Flush (NS 10 ml) 10 ml PRN PRN IV FLUSH LINE Last administered on 06/12/17 23:32; Admin Dose 10 ML; Start 04/15/17 at 13:00 Amiodarone HCl (Cordarone) 200 mg BID GTB Last administered on 06/14/17 21:46; Admin Dose 200 MG; Start 04/16/17 at 13:00 Citalopram Hydrobromide (Celexa) 20 mg DAILY NGT Last administered on 06/15/17 09:02; Admin Dose 20 MG; Start 04/19/17 at 09:00 Hydralazine HCl (Apresoline) 20 mg Q6H PRN IV sbp ABOVE 160 Last administered on 06/14/17 12:08; Admin Dose 20 MG; Start 04/18/17 at 18:30 Chlorhexidine Gluconate (Peridex) 15 ml BID MT Last administered on 06/15/17 09 :02; Admin Dose 15 ML; Start 04/22/17 at 21:00 Vitamin A/Vitamin D (Vitamin A & D Oint) 1 applic TID TOP Last administered on 06/15/17 09:02; Admin Dose 1 APPLIC; Start 04/22/17 at 21:00 Vitamin A/Vitamin D (Vitamin A & D Oint) 1 applic TID PRN TOP DRYNESS Last administered on 04/22/17 15:29; Admin Dose 1 APPLIC; Start 04/22/17 at 15:00 Acetaminophen/ Hydrocodone Bitart ([place] (5/325)) 1 tab Q6H GTB Last administered on 06/15/17 09:03; Admin Dose 1 TAB; Start 04/22/17 at 21:30 Diltiazem HCl 5 mg 5 mg Q1H PRN IV HEART RATE GREATER THAN 120 Last administered on 04/29/17 06:17; Admin Dose 5 MG; Start 04/29/17 at 05:00 Sodium Chloride 1,000 ml @ 0 mls/hr Q0M IV Last administered on 05/01/17 03: 00; Admin Dose 1,000 MLS/HR; Start 05/01/17 at 03:00 Sodium Chloride 1,000 ml @ 0 mls/hr Q0M IV Last administered on 05/01/17 04: 00; Admin Dose 1,000 MLS/HR; Start 05/01/17 at 03:30 Diltiazem HCl (Cardizem-D5W 125 Mg/125 ml Drip) 125 ml @ 5 mls/hr TITRATE IV Last administered on 05/02/17 19:11; Admin Dose 5 MLS/HR; Start 05/02/17 at 19: 00 Metoprolol Tartrate (Lopressor) 25 mg QID GTB Last administered on 06/14/17 21: 46; Admin Dose 25 MG; Start 05/07/17 at 09:00 Vitamin B Complex/ Vitamin C (Berocca) 1 cap DAILY PO Last administered on 09:02; Admin Dose 1 CAP; Start 05/13/17 at 09:00 Aspirin (Aspirin) 81 mg DAILY NGT Last administered on 06/15/17 09:02; Admin Dose 81 MG; Start 05/19/17 at 09:00 Lansoprazole (Prevacid) 30 mg BID@18 GTB Last administered on 06/15/17 05:55 ; Admin Dose 30 MG; Start 05/20/17 at 18:00 Multivitamins (Multivitamin) 30 ml DAILY GTB Last administered on 06/15/17 09: 02; Admin Dose 30 ML; Start 05/24/17 at 09:00 Epoetin [place] 33003 units 12,000 units TuThSa@17 SC Last administered on 17:15; Admin Dose 12,000 UNITS; Start 06/05/17 at 17:00 Cefepime HCl 50 ml @ 100 mls/hr DAILY IVPB Last administered on 06/15/17 09:02 ; Admin Dose 100 MLS/HR; Start 06/13/17 at 09:30 Albumin Human (Albumin Human 25%) 100 ml @ 100 mls/hr ONCE ONCE IV Last administered on 06/15/17 09:22; Admin Dose 100 MLS/HR; Start 06/15/17 at 09:30; Stop 06/15/17 at 10:29 Levothyroxine Sodium (Synthroid) 175 mcg DAILY@06 GTB ; Start 06/16/17 at 06:00; Status IZZY PINEDO MD Jun 15, 2017 09:45
[2017-06-15] MEDS: METOPROLOL 25 MG TAB GTB SCH ×4 (10:49→21:26)
--- NOTE | 2017-06-15 11:42 | PN ---
Date/Time of Note Date/Time of Note DATE: 06/15/17 TIME: 11:41 Assessment/Plan VTE Prophylaxis VTE Prophylaxis Intervention: other Lines/Catheters [facility] Type [facility] permacath Urinary Cath still in place: Yes Reason Cath still needed: urinary retention Assessment/Plan Chief Complaint/Hosp Course SUBJECTIVE DATA: The patient is currently off the vent. No other events noted overnight. No hemoptysis, hematemesis, hematochezia, new rash, fever, chills, diaphoresis, vomiting. last hd was 2 days ago. records were reviewed d/w and HD nurse cultures were reviewed OBJECTIVE DATA: HEENT: Head is normocephalic. NECK: Supple. HEART: Regular rate. LUNGS: Show diminished breath sounds at the base. ABDOMEN: Soft, nontender to palpation. No rebound or guarding. EXTREMITIES: Negative for clubbing, cyanosis. Positive edema. DERMATOLOGIC: Clean. No rashes. MUSCULOSKELETAL: No joint effusion. NEUROLOGIC: Unchanged exam. MEDICATIONS: Reviewed. ASSESSMENT AND PLAN: 1. Ventilatory-dependent respiratory failure. weaned down to trach. Continue to monitor. 2. End-stage renal disease. Continue hemodialysis today 3. Volume overload. Continue ultrafiltration with dialysis. 4. Anemia. Continue to monitor H and H levels. Continue Epogen. 5. Sepsis, status post shock. The patient has completed antibiotic course. 6. Leukocytosis. due to UTI. will dc vanco 7. Encephalopathy. The patient's mental status is slowly improving. 8. Hypothyroidism. Continue Synthroid. will adjust dose 9. Hyponatremia, improved. 10. Hypokalemia, resolved. 11. Dysphagia, status post percutaneous endoscopic gastrostomy. Continue tube feeding. 12. History of thyroid cancer with tracheomalacia. The patient has been evaluated by ENT. Continue to monitor. 13. Status post gastrointestinal bleed. 14. Adrenal insufficiency. 15. Gastrointestinal and deep venous thrombosis prophylaxis. Problems: Exam/Review of Systems Vital Signs Vitals Vital Signs Date Time Temp Pulse Resp B/P Pulse Ox O2 Delivery O2 Flow Rate FiO2 06/15/17 09:46 98.1 06/15/17 09:15 78 06/15/17 08:00 40 06/15/17 07:59 18 134/57 99 06/15/17 07:50 6.0 06/15/17 07:50 Aerosol T Tube Intake and Output 06/14/17 06/14/17 06/15/17 15:00 23:00 07:00 Intake Total 50 ml 860 ml 1010 ml Output Total 300 ml 200 ml Balance 50 ml 560 ml 810 ml Results Result Diagram: 06/14/17 0612 06/13/17 0652 Results 24 hrs Laboratory Tests Test 06/14/17 12:02 06/14/17 17:05 06/15/17 00:03 06/15/17 05:48 Bedside Glucose 131 132 150 Lab Scanned Report BLOOD TRANSFUSION Test 06/15/17 06:10 06/15/17 06:30 Bedside Glucose 102 Thyroid Stimulating Hormone (TSH) 47.900 H Medications Medications Current Medications Metoprolol Tartrate (Lopressor) 5 mg Q4H PRN IV HR>110 Hold SBP<110 Last administered on 04/20/17 17:36; Admin Dose 5 MG; Start 04/11/17 at 13:30 Miscellaneous Information 1 ea NOTE XX ; Start 04/11/17 at 16:30 Glucose (Glutose) 15 gm Q15M PRN PO DECREASED GLUCOSE Last administered on 05/07 03:27; Admin Dose 15 GM; Start 04/11/17 at 16:30 Glucose (Glutose) 22.5 gm Q15M PRN PO DECREASED GLUCOSE; Start 04/11/17 at 16: 30 Dextrose (D50w Syringe) 25 ml Q15M PRN IV DECREASED GLUCOSE Last administered on 04/12/17 23:56; Admin Dose 25 ML; Start 04/11/17 at 16:30 Dextrose (D50w Syringe) 50 ml Q15M PRN IV DECREASED GLUCOSE; Start 04/11/17 at 16:30 Glucagon (Glucagen) 1 mg Q15M PRN IM DECREASED GLUCOSE; Start 04/11/17 at 16:30 Glucose (Glutose) 15 gm Q15M PRN BUCCAL DECREASED GLUCOSE; Start 04/11/17 at 16 :30 Metoclopramide HCl (Reglan) 10 mg Q6 IV Last administered on 06/15/17 05:56; Admin Dose 10 MG; Start 04/12/17 at 18:00 Insulin Aspart (Novolog Insulin Pen) NOVOLOG *MILD* ALGORI... Q6H SC Last administered on 06/15/17 00:12; Admin Dose 1 UNIT; Start 04/15/17 at 00:00 IV Flush (NS 10 ml) 10 ml PRN PRN IV FLUSH LINE Last administered on 06/12/17 23:32; Admin Dose 10 ML; Start 04/15/17 at 13:00 Amiodarone HCl (Cordarone) 200 mg BID GTB Last administered on 06/14/17 21:46; Admin Dose 200 MG; Start 04/16/17 at 13:00 Citalopram Hydrobromide (Celexa) 20 mg DAILY NGT Last administered on 06/15/17 09:02; Admin Dose 20 MG; Start 04/19/17 at 09:00 Hydralazine HCl (Apresoline) 20 mg Q6H PRN IV sbp ABOVE 160 Last administered on 06/14/17 12:08; Admin Dose 20 MG; Start 04/18/17 at 18:30 Chlorhexidine Gluconate (Peridex) 15 ml BID MT Last administered on 06/15/17 09 :02; Admin Dose 15 ML; Start 04/22/17 at 21:00 Vitamin A/Vitamin D (Vitamin A & D Oint) 1 applic TID TOP Last administered on 06/15/17 09:02; Admin Dose 1 APPLIC; Start 04/22/17 at 21:00 Vitamin A/Vitamin D (Vitamin A & D Oint) 1 applic TID PRN TOP DRYNESS Last administered on 04/22/17 15:29; Admin Dose 1 APPLIC; Start 04/22/17 at 15:00 Acetaminophen/ Hydrocodone Bitart ([place] (5/325)) 1 tab Q6H GTB Last administered on 06/15/17 09:03; Admin Dose 1 TAB; Start 04/22/17 at 21:30 Diltiazem HCl 5 mg 5 mg Q1H PRN IV HEART RATE GREATER THAN 120 Last administered on 04/29/17 06:17; Admin Dose 5 MG; Start 04/29/17 at 05:00 Sodium Chloride 1,000 ml @ 0 mls/hr Q0M IV Last administered on 05/01/17 03: 00; Admin Dose 1,000 MLS/HR; Start 05/01/17 at 03:00 Sodium Chloride 1,000 ml @ 0 mls/hr Q0M IV Last administered on 05/01/17 04: 00; Admin Dose 1,000 MLS/HR; Start 05/01/17 at 03:30 Diltiazem HCl (Cardizem-D5W 125 Mg/125 ml Drip) 125 ml @ 5 mls/hr TITRATE IV Last administered on 05/02/17 19:11; Admin Dose 5 MLS/HR; Start 05/02/17 at 19: 00 Metoprolol Tartrate (Lopressor) 25 mg QID GTB Last administered on 06/14/17 21: 46; Admin Dose 25 MG; Start 05/07/17 at 09:00 Vitamin B Complex/ Vitamin C (Berocca) 1 cap DAILY PO Last administered on 09:02; Admin Dose 1 CAP; Start 05/13/17 at 09:00 Aspirin (Aspirin) 81 mg DAILY NGT Last administered on 06/15/17 09:02; Admin Dose 81 MG; Start 05/19/17 at 09:00 Lansoprazole (Prevacid) 30 mg BID@,18 GTB Last administered on 06/15/17 05:55 ; Admin Dose 30 MG; Start 05/20/17 at 18:00 Multivitamins (Multivitamin) 30 ml DAILY GTB Last administered on 06/15/17 09: 02; Admin Dose 30 ML; Start 05/24/17 at 09:00 Epoetin [place] 17989 units 12,000 units TuThSa@17 SC Last administered on 17:15; Admin Dose 12,000 UNITS; Start 06/05/17 at 17:00 Cefepime HCl (Maxipime 1gm/50 ml (Pmx)) 50 ml @ 100 mls/hr DAILY IVPB Last administered on 06/15/17 09:02; Admin Dose 100 MLS/HR; Start 06/13/17 at 09:30 Levothyroxine Sodium (Synthroid) 175 mcg DAILY@06 GTB ; Start 06/16/17 at 06:00 DERECK QUINTERO DO Jun 15, 2017 11:42
[2017-06-15] MEDS: AMIODARONE 200 MG TAB GTB SCH ×2 (12:14→21:26)
--- NOTE | 2017-06-15 16:40 | PN ---
Date/Time of Note Date/Time of Note DATE: 06/15/17 TIME: 16:39 Assessment/Plan Lines/Catheters IV Catheter Type (from [facility]): permacath Mims in Place (from [facility]): Yes Assessment/Plan Chief Complaint/Hosp Course 1. Cholelithiasis: Tolerating tube feeds; no abdominal pain/discomfort/bloating ; +bowel function -No surgical intervention required at this time 2. Pneumonia: Recurrent +sputum cultures; appears comfortable, no fevers, s/p abx; CXR: with nodule-possible aspirated tooth; ct chest: no foreign body -pulmonary toilet -wean as tolerated 3. Vent dependent respiratory failure: 2/2 aspiration PNA+ CHF;reintubated and extubated, coded 04/21 and 05/01; off vent, on tpiece -as above 4. KEYONNA: now with HD with + urine output; arranging for outpatient HD; HD today -judicious fluid management -avoid nephrotoxic agents 5. Uncontrolled Afib: s/p amiodarone drip, on oral amiodarone; episodes of Afib ; currently SR -medical optimization 6. Leukocytosis with lactic acidosis: 2/2 pneumonia +/- steroids vs.fungemia vs other (urine, repeat blood cultures negative);up today -per ID 7. Macrocytic anemia: chronic vs. dilutional vs. acute bleed vs. b12/folate deficiency; hh stable -monitor -Transfuse as needed 8. Electrolyte imbalance: (hyponatremia, hypokalemia); improved -electrolyte optimization 9. CHF: BNP elevated -judicious fluid management -medical optimization 10. Adrenal Insufficiency -solucortef 11. Hypothyroidism -on synthroid 12. Hypoalbuminemia: 2/2 malnutrition +/- inflammation; decreased; tolerating tf ; -nutrition optimization -as above 13. Eyelid swelling probably 2nd dependent edema. ? infection -defer to primary team Thank you, Problems: Subjective 24 Hr Interval Summary concerned about eyelid swelling bilaterally. Arousal, comfortable. Leukocytosis. No fevers, chills, sob, cp, palpitations, change in tele rhythm, n /v/d/dysuria. +uop. Exam/Review of Systems Vital Signs Vitals Vital Signs Date Time Temp Pulse Resp B/P Pulse Ox O2 Delivery O2 Flow Rate FiO2 06/15/17 16:19 81 06/15/17 15:22 97.9 18 154/70 99 06/15/17 15:09 Aerosol 6.0 28 T Tube Intake and Output 06/14/17 06/14/17 06/15/17 15:00 23:00 07:00 Intake Total 50 ml 860 ml 1010 ml Output Total 300 ml 200 ml Balance 50 ml 560 ml 810 ml Exam Free Text/Dictation Constitutional: fully awake, alert pleasant Head: atraumatic, normocephalic Eyes: PERRL, edema bilateral upper eyelids without erythema, nl sclera; ENMT: No mucosa pink and moist (pink and moist with healed perioral lesions), tooth missing, mild facial swelling Neck: non-tender, supple, tracheostomy Respiratory: diminished, weaned off vent, min sputum Cardiovascular: nl pulses, regular rate and rhythm, Gastrointestinal: non distended, GT tubes site no erythema, no drainage, non tenderness, bowel sounds x 4 quads, soft; tf ongoing Genitourinary - Female: nl external genitalia; +uop per mims with yellow output with sediments Musculoskeletal: nl extremities to inspection, min edema Extremities: normal pulses, bilateral upper/lower extremity edema 1+; improved extremity edema Neurological: responsive Skin: nl turgor, No rash or lesions Lymph: nl lymph node Results Result Diagram: 06/14/17 0612 06/13/17 0652 PATRICK QUINTERO MD Jun 15, 2017 16:40
--- NOTE | 2017-06-15 17:55 | CONS ---
Date/Time of Note Date/Time of Note DATE: 06/15/17 TIME: 17:51 Assessment/Plan Assessment/Plan Chief Complaint/Hosp Course ID PROGRESS NOTE CURRENT ABX=> Vanco IV #3 + Cefepime #3 + s/p Fosfomycin 3mg GT x1 for MDRO Proteus Mirabilis UTI 24H INTERVAL SUMMARY/HOSPITAL COURSE * TMax 100.1, WBC rising -> Urine Cx (+)Proteus MDRO * Facial Edema is positional due to fluid overload and compromised Jugular Venous return when she leans forward over trach ties -- venous return is inhibited * Recurrent line sepsis -> line changed PHYSICAL EXAMINATION: GENERAL: 66 yo F, stable on the Vent HEENT: Atraumatic, (+)Lip lesions well healed == Facial edema persisting NECK: (+)Trach in place secure to VENT CHEST: Rise symmetrical w/coarse BS, scattered rales/rhonchi ABDOMEN: Soft, peg EXTREMITIES: Warm, moves extremities ID ASSESSMENT: 66 yo F w/PMHx tongue cancer, chronic trach re-admit H from SNF with: 1. s/p Acute severe sepsis/shock on admission w/(+)fever, tachycardia, lactic acidosis, leukocytosis, (+)troponin leak = RESOLVED 1A. SIRS w/ low grade temps + Leukocytosis persisting= + Vanco IV + Cefepime restarted 06/13/17=> URINE Cx (+)GNR Proteus Mirabilis MDRO * Fungemia => repeat BCx negative * s/p 06/03 GNR Femoral Line sepsis => Line DC'd patient without evidence of current sepsis 2. Anasarca w/increased facial edema/bilateral lip edema w/resolution of HSV lip lesions => IMPROVED 3. Acute respiratory failure = recurrent issue s/p intubation x3rd episode w/ extubation, now with Trach secure to Vent 3. 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 Acute CHF w/elevated BNP 8000 in setting tachycardia, sepsis, pulmonary edema on CXR 5. s/p Nausea w/emesis on admission -> RESOLVED -- This has been recurrent issue , etiology of recurrent ASP PNA/Pulm Sepsis * Query: DM Autonomic Gastroparesis * GERD 6. Cholelithiasis w/dilated CBD->HIDA scan (+cholecystitis 04/12/17=> s/p Mansi Drain 04/17/17, no surgery per GI => Asymptomatic/Stable 7. Acute renal failure = started on HD 8. Dysphagia sp PEG placement 9. Paroxysmal Afib 10. NSTEMI in setting sepsis, tachycardia, acute hypoxic respiratory failure, acute CHF exacerbation 11. Elevated glucose - iatrogenic diabetes while on IV steroids 12. Leukocytosis = partial steroids demargination 13. Lip lesions => consistent w/herpes simplex virus outbreak -> HEALED 14. s/p GIB associates with Acute on chronic anemia secondary to AVM ==> stopped , status post EGD on May 02 with injection of epinephrine 15. Recent (+)C.Diff on 03/07/16 (treated) w/(-)C.Diff 03/20/17 => Monitor for recurrent (-) MRSA Nares screen (04/03/17) INVASIVES: Trach, PEG Latif, RIJ p-cath 06/05 ABX ALLERGY: Iodine CURRENT ABX=>Vanco IV #3 + Cefepime #3 s/p Fosfomycin 3mg GT x1 for MDRO Proteus Mirabilis UTI She has completed a 10 day course for recurrent ASP PNA/sepsis 05/19/17 s/p Flagyl, + Cefepime #10+ Colistin INH #10 => DC'd 05/19/17 Valtrex,-> DC 05/17 Cancidas -> DC 05/10 Merrem -> DC'd 05/08 She completed a 14 day course upon admission for ASP PNA was OFF ABX then re- aspirated * Merrem #14 total -> DC'd 04/26=> Restarted 05/08 ID PLAN=> s/p Fosfomycin 3mg GT x1 for MDRO Proteus Mirabilis UTI 06/14/17 pm * Continue Vanco IV + Cefepime * Facial Edema is positional due to fluid overload and compromised Jugular Venous return when she leans forward over trach ties -- venous return is inhibited . . Problems: Consultation Date/Type/Reason Admit Date/Time Apr 11, 2017 at 11:28 Initial Consult Date 04/11/17 Type of Consultation: ID Referring Provider: NINA MACIEL DO Exam/Review of Systems Vital Signs Vitals Vital Signs Date Time Temp Pulse Resp B/P Pulse Ox O2 Delivery O2 Flow Rate FiO2 06/15/17 16:19 81 06/15/17 15:22 97.9 18 154/70 99 06/15/17 15:09 Aerosol 6.0 28 T Tube Intake and Output 06/14/17 06/14/17 06/15/17 15:00 23:00 07:00 Intake Total 50 ml 860 ml 1010 ml Output Total 300 ml 200 ml Balance 50 ml 560 ml 810 ml Results Result Diagram: 06/14/17 0612 06/13/17 0652 Results 24 hrs Laboratory Tests Test 06/15/17 00:03 06/15/17 05:48 06/15/17 06:10 06/15/17 06:30 Bedside Glucose 150 102 Lab Scanned Report BLOOD TRANSFUSION Thyroid Stimulating Hormone (TSH) 47.900 H Test 06/15/17 12:17 06/15/17 17:22 Bedside Glucose 145 118 Medications Medications Current Medications Metoprolol Tartrate (Lopressor) 5 mg Q4H PRN IV HR>110 Hold SBP<110 Last administered on 04/20/17 17:36; Admin Dose 5 MG; Start 04/11/17 at 13:30 Miscellaneous Information 1 ea NOTE XX ; Start 04/11/17 at 16:30 Glucose (Glutose) 15 gm Q15M PRN PO DECREASED GLUCOSE Last administered on 05/07 03:27; Admin Dose 15 GM; Start 04/11/17 at 16:30 Glucose (Glutose) 22.5 gm Q15M PRN PO DECREASED GLUCOSE; Start 04/11/17 at 16: 30 Dextrose (D50w Syringe) 25 ml Q15M PRN IV DECREASED GLUCOSE Last administered on 04/12/17 23:56; Admin Dose 25 ML; Start 04/11/17 at 16:30 Dextrose (D50w Syringe) 50 ml Q15M PRN IV DECREASED GLUCOSE; Start 04/11/17 at 16:30 Glucagon (Glucagen) 1 mg Q15M PRN IM DECREASED GLUCOSE; Start 04/11/17 at 16:30 Glucose (Glutose) 15 gm Q15M PRN BUCCAL DECREASED GLUCOSE; Start 04/11/17 at 16 :30 Metoclopramide HCl (Reglan) 10 mg Q6 IV Last administered on 06/15/17 17:11; Admin Dose 10 MG; Start 04/12/17 at 18:00 Insulin Aspart (Novolog Insulin Pen) NOVOLOG *MILD* ALGORI... Q6H SC Last administered on 06/15/17 12:24; Admin Dose 1 UNIT; Start 04/15/17 at 00:00 IV Flush (NS 10 ml) 10 ml PRN PRN IV FLUSH LINE Last administered on 06/12/17 23:32; Admin Dose 10 ML; Start 04/15/17 at 13:00 Amiodarone HCl (Cordarone) 200 mg BID GTB Last administered on 06/15/17 12:14; Admin Dose 200 MG; Start 04/16/17 at 13:00 Citalopram Hydrobromide (Celexa) 20 mg DAILY NGT Last administered on 06/15/17 09:02; Admin Dose 20 MG; Start 04/19/17 at 09:00 Hydralazine HCl (Apresoline) 20 mg Q6H PRN IV sbp ABOVE 160 Last administered on 06/14/17 12:08; Admin Dose 20 MG; Start 04/18/17 at 18:30 Chlorhexidine Gluconate (Peridex) 15 ml BID MT Last administered on 06/15/17 09 :02; Admin Dose 15 ML; Start 04/22/17 at 21:00 Vitamin A/Vitamin D (Vitamin A & D Oint) 1 applic TID TOP Last administered on 06/15/17 12:15; Admin Dose 1 APPLIC; Start 04/22/17 at 21:00 Vitamin A/Vitamin D (Vitamin A & D Oint) 1 applic TID PRN TOP DRYNESS Last administered on 04/22/17 15:29; Admin Dose 1 APPLIC; Start 04/22/17 at 15:00 Acetaminophen/ Hydrocodone Bitart ([place] (5/325)) 1 tab Q6H GTB Last administered on 06/15/17 09:03; Admin Dose 1 TAB; Start 04/22/17 at 21:30 Diltiazem HCl 5 mg 5 mg Q1H PRN IV HEART RATE GREATER THAN 120 Last administered on 04/29/17 06:17; Admin Dose 5 MG; Start 04/29/17 at 05:00 Sodium Chloride 1,000 ml @ 0 mls/hr Q0M IV Last administered on 05/01/17 03: 00; Admin Dose 1,000 MLS/HR; Start 05/01/17 at 03:00 Sodium Chloride 1,000 ml @ 0 mls/hr Q0M IV Last administered on 05/01/17 04: 00; Admin Dose 1,000 MLS/HR; Start 05/01/17 at 03:30 Diltiazem HCl (Cardizem-D5W 125 Mg/125 ml Drip) 125 ml @ 5 mls/hr TITRATE IV Last administered on 05/02/17 19:11; Admin Dose 5 MLS/HR; Start 05/02/17 at 19: 00 Metoprolol Tartrate (Lopressor) 25 mg QID GTB Last administered on 06/15/17 17: 15; Admin Dose 25 MG; Start 05/07/17 at 09:00 Vitamin B Complex/ Vitamin C (Berocca) 1 cap DAILY PO Last administered on 09:02; Admin Dose 1 CAP; Start 05/13/17 at 09:00 Aspirin (Aspirin) 81 mg DAILY NGT Last administered on 06/15/17 09:02; Admin Dose 81 MG; Start 05/19/17 at 09:00 Lansoprazole (Prevacid) 30 mg BID@06,18 GTB Last administered on 06/15/17 17:11 ; Admin Dose 30 MG; Start 05/20/17 at 18:00 Multivitamins (Multivitamin) 30 ml DAILY GTB Last administered on 06/15/17 09: 02; Admin Dose 30 ML; Start 05/24/17 at 09:00 Epoetin [place] 71874 units 12,000 units TuThSa@17 SC Last administered on 17:15; Admin Dose 12,000 UNITS; Start 06/05/17 at 17:00 Cefepime HCl (Maxipime 1gm/50 ml (Pmx)) 50 ml @ 100 mls/hr DAILY IVPB Last administered on 06/15/17 09:02; Admin Dose 100 MLS/HR; Start 06/13/17 at 09:30 Levothyroxine Sodium (Synthroid) 175 mcg DAILY@06 GTB ; Start 06/16/17 at 06:00 MARGOT WILLS NP Jun 15, 2017 17:55
[2017-06-16] VITALS (11 sets, daily range): BP systolic 102–153; BP diastolic 53–72; PULSE 76–88; RESP 17–18
[2017-06-16] MEDS: ALBUTEROL/IPRATROPIUM (NEB) 3 ML AMP HHN SCH ×4 (01:33→19:46)
[2017-06-16] MEDS: HYDROCODONE/APAP (5/325) TAB GTB SCH ×4 (03:36→21:29)
[2017-06-16] MEDS: INSULIN ASPART [NOVOLOG] 3 ML PEN SC SCH ×3 (05:21→18:00)
[2017-06-16] MEDS: METOCLOPRAMIDE 10 MG INJ IV SCH ×3 (05:22→17:12)
[2017-06-16] MEDS: LEVOTHYROXINE 175 MCG TAB GTB SCH (05:22)
[2017-06-16] MEDS: LANSOPRAZOLE 30 MG CAP GTB SCH ×2 (06:52→17:12)
--- NOTE | 2017-06-16 09:08 | PN ---
DATE: 06/16/2017 SUBJECTIVE DATA: The patient is stable. No events overnight. The patient had hemodialysis yesterday, tolerated well. OBJECTIVE DATA: VITAL SIGNS: Blood pressure 130/62, pulse 85, respiration 18, temperature 98. HEENT: Head is normocephalic. NECK: Supple. HEART: Regular rate. LUNGS: Diminished breath sounds at the base. ABDOMEN: Soft, nontender to palpation. No rebound or guarding. EXTREMITIES: Negative for clubbing, cyanosis. Trace edema. DERMATOLOGIC: No rashes. MUSCULOSKELETAL: No joint effusion. NEUROLOGIC: No change in exam. MEDICATIONS: Reviewed. LABORATORY AND DIAGNOSTIC DATA: Reviewed. No new labs. ASSESSMENT AND PLAN: 1. Ventilator dependence respiratory failure. Vent settings reviewed. Continue to monitor. 2. End-stage renal disease. Plan for hemodialysis tomorrow. 3. Volume overload, improving. Continue ultrafiltration dialysis. 4. Anemia. Monitor H and H levels. Continue Epogen. 5. Sepsis status post shock. The patient is completing antibiotic course. 6. Leukocytosis. The patient was reintroduced on antibiotic therapy. Etiology may be secondary to urinary tract infection as repeat urine cultures were positive. Continue current antibiotic regimen. 7. Encephalopathy, mental status slowly improving. Continue to monitor. 8. Hypothyroidism. Continue current medical management. Continue Synthroid. Follow up with Endocrinology. 9. Dysphagia. Continue tube feeding. 10. History of thyroid cancer with tracheomalacia. The patient is status post ENT evaluation. 11. Status post gastrointestinal bleed. 12. Adrenal insufficiency. 13. Gastrointestinal and deep venous thrombosis prophylaxis. Dictated By: Abebe Valderrama DO /[email or web address]/ec /Document#: [id number]
[2017-06-16] MEDS: MULTIVITAMINS 30 ML CUP GTB SCH (09:52)
[2017-06-16] MEDS: VITAMIN A & D 5 GM OINT PACKET TOP SCH ×3 (09:52→21:25)
[2017-06-16] MEDS: CEFEPIME 1GM/50 ML (PMX) 50 ML IVPB SCH (09:52)
[2017-06-16] MEDS: CHLORHEXIDINE GLUCONATE 15 ML UD CUP MT SCH ×2 (09:52→21:26)
[2017-06-16] MEDS: CITALOPRAM 20 MG TAB NGT SCH (09:53)
[2017-06-16] MEDS: METOPROLOL 25 MG TAB GTB SCH ×4 (09:53→21:26)
[2017-06-16] MEDS: AMIODARONE 200 MG TAB GTB SCH ×2 (09:54→21:26)
[2017-06-16] MEDS: VITAMIN B COMPLEX/VIT C CAP PO SCH (09:55)
[2017-06-16] MEDS: ASPIRIN 81 MG TAB NGT SCH (09:56)
--- NOTE | 2017-06-16 09:56 | CONS ---
Date/Time of Note Date/Time of Note DATE: 06/16/17 TIME: 09:54 Assessment/Plan Assessment/Plan Additional Assessment/Plan Assessment and recommendations; 1. Patient admitted with pneumonia and sepsis off antibiotics now. 2. Chronic respiratory failure patient now weaned down to T-piece. 3. History of redo tracheostomy 2. 4. COPD. 5. Anemia. 6. End-stage renal disease. 7. History of cardiac arrhythmia. 8. Severe generalized deconditioning. 9. Hypothyroidism. 10.remote history of glossal cancer. Continue current treatment. Consultation Date/Type/Reason Admit Date/Time Apr 11, 2017 at 11:28 Initial Consult Date 05/01/17 Type of Consultation: Pulmonary Referring Provider: NINA MACIEL DO 24 HR Interval Summary Free Text/Dictation Patient condition stable. Doing well on T piece via tracheostomy. Has remained hemodynamically stable. General exam; elderly woman, awake and alert. Currently in no distress. Exam/Review of Systems Vital Signs Vitals Vital Signs Date Time Temp Pulse Resp B/P Pulse Ox O2 Delivery O2 Flow Rate FiO2 06/16/17 08:15 84 06/16/17 08:10 16 99 Aerosol 35 T Tube 06/16/17 08:10 5.0 06/16/17 07:32 98.0 130/62 Intake and Output 06/15/17 06/15/17 06/16/17 14:59 22:59 06:59 Intake Total 300 ml 760 ml 790 ml Output Total 3300 ml 250 ml 150 ml Balance -3000 ml 510 ml 640 ml Exam HEENT exam; supple neck, no JVD. No lymphadenopathy. Midline trachea. No thyromegaly. Tracheostomy in place. At S2 T-piece. Patient has fair dentition. Chest exam; diminished but clear breath sound. S1-S2 audible, no murmurs. Regular rhythm. Abdomen exam; soft, no organomegaly. Nontender. G-tube in place. Bowel sounds audible. Extremity exam; there is marked reduction in generalized anasarca. FINANCIAL REPRESENTATIVE exam; no focal motor deficit. Patient however exhibiting profound generalized muscular weakness. Results Result Diagram: 06/14/17 0612 06/13/17 0652 Results 24 hrs Laboratory Tests Test 06/15/17 12:17 06/15/17 17:22 06/15/17 23:52 06/16/17 05:20 Bedside Glucose 145 118 111 118 Medications Medications Current Medications Metoprolol Tartrate (Lopressor) 5 mg Q4H PRN IV HR>110 Hold SBP<110 Last administered on 04/20/17 17:36; Admin Dose 5 MG; Start 04/11/17 at 13:30 Miscellaneous Information 1 ea NOTE XX ; Start 04/11/17 at 16:30 Glucose (Glutose) 15 gm Q15M PRN PO DECREASED GLUCOSE Last administered on 05/07 03:27; Admin Dose 15 GM; Start 04/11/17 at 16:30 Glucose (Glutose) 22.5 gm Q15M PRN PO DECREASED GLUCOSE; Start 04/11/17 at 16: 30 Dextrose (D50w Syringe) 25 ml Q15M PRN IV DECREASED GLUCOSE Last administered on 04/12/17 23:56; Admin Dose 25 ML; Start 04/11/17 at 16:30 Dextrose (D50w Syringe) 50 ml Q15M PRN IV DECREASED GLUCOSE; Start 04/11/17 at 16:30 Glucagon (Glucagen) 1 mg Q15M PRN IM DECREASED GLUCOSE; Start 04/11/17 at 16:30 Glucose (Glutose) 15 gm Q15M PRN BUCCAL DECREASED GLUCOSE; Start 04/11/17 at 16 :30 Metoclopramide HCl (Reglan) 10 mg Q6 IV Last administered on 06/16/17 05:22; Admin Dose 10 MG; Start 04/12/17 at 18:00 Insulin Aspart (Novolog Insulin Pen) NOVOLOG *MILD* ALGORI... Q6H SC Last administered on 06/15/17 12:24; Admin Dose 1 UNIT; Start 04/15/17 at 00:00 IV Flush (NS 10 ml) 10 ml PRN PRN IV FLUSH LINE Last administered on 06/12/17 23:32; Admin Dose 10 ML; Start 04/15/17 at 13:00 Amiodarone HCl (Cordarone) 200 mg BID GTB Last administered on 06/15/17 21:26; Admin Dose 200 MG; Start 04/16/17 at 13:00 Citalopram Hydrobromide (Celexa) 20 mg DAILY NGT Last administered on 06/15/17 09:02; Admin Dose 20 MG; Start 04/19/17 at 09:00 Hydralazine HCl (Apresoline) 20 mg Q6H PRN IV sbp ABOVE 160 Last administered on 06/14/17 12:08; Admin Dose 20 MG; Start 04/18/17 at 18:30 Chlorhexidine Gluconate (Peridex) 15 ml BID MT Last administered on 06/15/17 21 :26; Admin Dose 15 ML; Start 04/22/17 at 21:00 Vitamin A/Vitamin D (Vitamin A & D Oint) 1 applic TID TOP Last administered on 06/15/17 21:26; Admin Dose 1 APPLIC; Start 04/22/17 at 21:00 Vitamin A/Vitamin D (Vitamin A & D Oint) 1 applic TID PRN TOP DRYNESS Last administered on 04/22/17 15:29; Admin Dose 1 APPLIC; Start 04/22/17 at 15:00 Acetaminophen/ Hydrocodone Bitart ([place] (5/325)) 1 tab Q6H GTB Last administered on 06/16/17 03:36; Admin Dose 1 TAB; Start 04/22/17 at 21:30 Diltiazem HCl 5 mg 5 mg Q1H PRN IV HEART RATE GREATER THAN 120 Last administered on 04/29/17 06:17; Admin Dose 5 MG; Start 04/29/17 at 05:00 Sodium Chloride 1,000 ml @ 0 mls/hr Q0M IV Last administered on 05/01/17 03: 00; Admin Dose 1,000 MLS/HR; Start 05/01/17 at 03:00 Sodium Chloride 1,000 ml @ 0 mls/hr Q0M IV Last administered on 05/01/17 04: 00; Admin Dose 1,000 MLS/HR; Start 05/01/17 at 03:30 Diltiazem HCl (Cardizem-D5W 125 Mg/125 ml Drip) 125 ml @ 5 mls/hr TITRATE IV Last administered on 05/02/17 19:11; Admin Dose 5 MLS/HR; Start 05/02/17 at 19: 00 Metoprolol Tartrate (Lopressor) 25 mg QID GTB Last administered on 06/15/17 21: 26; Admin Dose 25 MG; Start 05/07/17 at 09:00 Vitamin B Complex/ Vitamin C (Berocca) 1 cap DAILY PO Last administered on 09:02; Admin Dose 1 CAP; Start 05/13/17 at 09:00 Aspirin (Aspirin) 81 mg DAILY NGT Last administered on 06/15/17 09:02; Admin Dose 81 MG; Start 05/19/17 at 09:00 Lansoprazole (Prevacid) 30 mg BID@06,18 GTB Last administered on 06/16/17 06:52 ; Admin Dose 30 MG; Start 05/20/17 at 18:00 Multivitamins (Multivitamin) 30 ml DAILY GTB Last administered on 06/15/17 09: 02; Admin Dose 30 ML; Start 05/24/17 at 09:00 Epoetin [place] 47432 units 12,000 units TuThSa@17 SC Last administered on 17:15; Admin Dose 12,000 UNITS; Start 06/05/17 at 17:00 Cefepime HCl (Maxipime 1gm/50 ml (Pmx)) 50 ml @ 100 mls/hr DAILY IVPB Last administered on 06/15/17 09:02; Admin Dose 100 MLS/HR; Start 06/13/17 at 09:30 Levothyroxine Sodium (Synthroid) 175 mcg DAILY@06 GTB Last administered on 05:22; Admin Dose 175 MCG; Start 06/16/17 at 06:00 EMILIANO HICKS Jun 16, 2017 09:56
--- NOTE | 2017-06-16 15:55 | PN ---
Date/Time of Note Date/Time of Note DATE: 06/16/17 TIME: 15:54 Assessment/Plan Lines/Catheters IV Catheter Type (from [facility]): permacath Mims in Place (from [facility]): Yes Assessment/Plan Chief Complaint/Hosp Course 1. Cholelithiasis: Tolerating tube feeds; no abdominal pain/discomfort/bloating ; +bowel function -No surgical intervention required at this time 2. Pneumonia: Recurrent +sputum cultures; appears comfortable, no fevers, s/p abx; CXR: with nodule-possible aspirated tooth; ct chest: no foreign body -pulmonary toilet -wean as tolerated 3. Vent dependent respiratory failure: 2/2 aspiration PNA+ CHF;reintubated and extubated, coded 04/21 and 05/01; off vent, on tpiece -as above 4. KEYONNA: now with HD with + urine output; arranging for outpatient HD; HD today -judicious fluid management -avoid nephrotoxic agents 5. Uncontrolled Afib: s/p amiodarone drip, on oral amiodarone; episodes of Afib ; currently SR -medical optimization 6. Leukocytosis with lactic acidosis: 2/2 pneumonia +/- steroids vs.fungemia vs other (urine, repeat blood cultures negative);up today -per ID 7. Macrocytic anemia: chronic vs. dilutional vs. acute bleed vs. b12/folate deficiency; hh stable -monitor -Transfuse as needed 8. Electrolyte imbalance: (hyponatremia, hypokalemia); improved -electrolyte optimization 9. CHF: BNP elevated -judicious fluid management -medical optimization 10. Adrenal Insufficiency -solucortef 11. Hypothyroidism -on synthroid 12. Hypoalbuminemia: 2/2 malnutrition +/- inflammation; decreased; tolerating tf ; -nutrition optimization -as above 13. Eyelid swelling probably 2nd dependent edema. ? infection -defer to primary team Thank you, Problems: Subjective 24 Hr Interval Summary Arousal, comfortable. Leukocytosis. No fevers, chills, sob, cp, palpitations, change in tele rhythm, n/v/d/dysuria. +uop. Exam/Review of Systems Vital Signs Vitals Vital Signs Date Time Temp Pulse Resp B/P Pulse Ox O2 Delivery O2 Flow Rate FiO2 06/16/17 15:50 98.0 83 18 116/53 98 9/4/17 08:10 Aerosol 35 T Tube 06/16/17 08:10 5.0 Intake and Output 06/15/17 06/15/17 06/16/17 15:00 23:00 07:00 Intake Total 300 ml 760 ml 790 ml Output Total 3300 ml 250 ml 150 ml Balance -3000 ml 510 ml 640 ml Exam Free Text/Dictation Constitutional: fully awake, alert pleasant Head: atraumatic, normocephalic Eyes: PERRL, edema bilateral upper eyelids without erythema, nl sclera; ENMT: No mucosa pink and moist (pink and moist with healed perioral lesions), tooth missing, mild facial swelling Neck: non-tender, supple, tracheostomy Respiratory: diminished, weaned off vent, min sputum Cardiovascular: nl pulses, regular rate and rhythm, Gastrointestinal: non distended, GT tubes site no erythema, no drainage, non tenderness, bowel sounds x 4 quads, soft; tf ongoing Genitourinary - Female: nl external genitalia; +uop per mims with yellow output with sediments Musculoskeletal: nl extremities to inspection, min edema Extremities: normal pulses, bilateral upper/lower extremity edema 1+; improved extremity edema Neurological: responsive Skin: nl turgor, No rash or lesions Lymph: nl lymph node Results Result Diagram: 06/14/17 0612 06/13/17 0652 PATRICK QUINTERO MD Jun 16, 2017 15:55
--- NOTE | 2017-06-16 16:54 | CONS ---
Date/Time of Note Date/Time of Note DATE: 06/16/17 TIME: 16:47 Assessment/Plan Assessment/Plan Chief Complaint/Hosp Course ID PROGRESS NOTE CURRENT ABX=> + Cefepime # + Vanco IV # s/p Fosfomycin 3mg GT x1 for MDRO Proteus Mirabilis UTI 24H INTERVAL SUMMARY/HOSPITAL COURSE * Facial edema due to combination of fluid overload + venous return compromised by trach collar restricting venous return when she leans her head forward. She has mild conjunctival erythema; however she tells me NO EYE BURNING/NO EYE PAIN/ NO EYE DRYNESS/NO VISION CHANGE. * SHE WAS restarted on ABX last week for TMax 100.1, WBC rising -> Urine Cx (+) Proteus MDRO * Recurrent line sepsis -> line changed PHYSICAL EXAMINATION: GENERAL: 66 yo F, stable on the Vent HEENT: Atraumatic, (+)Lip lesions well healed == Facial edema persisting NECK: (+)Trach in place secure to VENT CHEST: Rise symmetrical w/coarse BS, scattered rales/rhonchi ABDOMEN: Soft, peg EXTREMITIES: Warm, moves extremities ID ASSESSMENT: 66 yo F w/PMHx tongue cancer, chronic trach re-admit [facility] from [facility] with: 1. s/p Acute severe sepsis/shock on admission w/(+)fever, tachycardia, lactic acidosis, leukocytosis, (+)troponin leak = RESOLVED 1A. SIRS w/ low grade temps + Leukocytosis persisting= + Vanco IV + Cefepime restarted 06/13/17=> URINE Cx (+)GNR Proteus Mirabilis MDRO * Fungemia => repeat BCx negative * s/p 06/03 GNR Femoral Line sepsis => Line DC'd patient without evidence of current sepsis 2. Anasarca w/increased facial edema/bilateral lip edema w/resolution of HSV lip lesions => IMPROVED 3. Acute respiratory failure = recurrent issue s/p intubation x3rd episode w/ extubation, now with Trach secure to Vent 3. 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 Acute CHF w/elevated BNP 8000 in setting tachycardia, sepsis, pulmonary edema on CXR 5. s/p Nausea w/emesis on admission -> RESOLVED -- This has been recurrent issue , etiology of recurrent ASP PNA/Pulm Sepsis * Query: DM Autonomic Gastroparesis * GERD 6. Cholelithiasis w/dilated CBD->HIDA scan (+cholecystitis 04/12/17=> s/p Mansi Drain 04/17/17, no surgery per GI => Asymptomatic/Stable 7. Acute renal failure = started on HD 8. Dysphagia sp PEG placement 9. Paroxysmal Afib 10. NSTEMI in setting sepsis, tachycardia, acute hypoxic respiratory failure, acute CHF exacerbation 11. Elevated glucose - iatrogenic diabetes while on IV steroids 12. Leukocytosis = partial steroids demargination 13. Lip lesions => consistent w/herpes simplex virus outbreak -> HEALED 14. s/p GIB associates with Acute on chronic anemia secondary to AVM ==> stopped , status post EGD on May 02 with injection of epinephrine 15. Recent (+)C.Diff on 03/07/16 (treated) w/(-)C.Diff 03/20/17 => Monitor for recurrent (-) MRSA Nares screen (04/03/17) INVASIVES: Trach, PEG Bhavya, CLEMENT p-cath 06/05 ABX ALLERGY: Iodine CURRENT ABX=>Vanco IV # + Cefepime # == DC ABX TODAY AND REPEAT MICRO s/p Fosfomycin 3mg GT x1 for MDRO Proteus Mirabilis UTI ID PLAN * Doubt true conjunctivitis as she denies sxs: no pain/no burning/no dryness/no drainage/no blepharitis * Facial Edema is positional due to fluid overload and compromised Jugular Venous return when she leans forward over trach ties -- venous return is compromised * WBC rising -- We are not sure what we are treating any more=> LET'S DC ABX and repeat micro * Repeat UA C&S * Repeat BCx * Repeat Stool for C.Diff . . . Problems: Consultation Date/Type/Reason Admit Date/Time Apr 11, 2017 at 11:28 Initial Consult Date 04/11/17 Referring Provider: NINA MACIEL DO Exam/Review of Systems Vital Signs Vitals Vital Signs Date Time Temp Pulse Resp B/P Pulse Ox O2 Delivery O2 Flow Rate FiO2 06/16/17 15:50 98.0 83 18 116/53 98 06/16/17 08:10 Aerosol 35 T Tube 06/16/17 08:10 5.0 Intake and Output 06/15/17 06/15/17 06/16/17 14:59 22:59 06:59 Intake Total 300 ml 760 ml 790 ml Output Total 3300 ml 250 ml 150 ml Balance -3000 ml 510 ml 640 ml Results Result Diagram: 06/14/17 0612 06/13/17 0652 Results 24 hrs Laboratory Tests Test 06/15/17 17:22 06/15/17 23:52 06/16/17 05:20 06/16/17 12:15 Bedside Glucose 118 111 118 125 Medications Medications Current Medications Metoprolol Tartrate (Lopressor) 5 mg Q4H PRN IV HR>110 Hold SBP<110 Last administered on 04/20/17 17:36; Admin Dose 5 MG; Start 04/11/17 at 13:30 Miscellaneous Information 1 ea NOTE XX ; Start 04/11/17 at 16:30 Glucose (Glutose) 15 gm Q15M PRN PO DECREASED GLUCOSE Last administered on 05/07 03:27; Admin Dose 15 GM; Start 04/11/17 at 16:30 Glucose (Glutose) 22.5 gm Q15M PRN PO DECREASED GLUCOSE; Start 04/11/17 at 16: 30 Dextrose (D50w Syringe) 25 ml Q15M PRN IV DECREASED GLUCOSE Last administered on 04/12/17 23:56; Admin Dose 25 ML; Start 04/11/17 at 16:30 Dextrose (D50w Syringe) 50 ml Q15M PRN IV DECREASED GLUCOSE; Start 04/11/17 at 16:30 Glucagon (Glucagen) 1 mg Q15M PRN IM DECREASED GLUCOSE; Start 04/11/17 at 16:30 Glucose (Glutose) 15 gm Q15M PRN BUCCAL DECREASED GLUCOSE; Start 04/11/17 at 16 :30 Metoclopramide HCl (Reglan) 10 mg Q6 IV Last administered on 06/16/17 12:14; Admin Dose 10 MG; Start 04/12/17 at 18:00 Insulin Aspart (Novolog Insulin Pen) NOVOLOG *MILD* ALGORI... Q6H SC Last administered on 06/15/17 12:24; Admin Dose 1 UNIT; Start 04/15/17 at 00:00 IV Flush (NS 10 ml) 10 ml PRN PRN IV FLUSH LINE Last administered on 06/12/17 23:32; Admin Dose 10 ML; Start 04/15/17 at 13:00 Amiodarone HCl (Cordarone) 200 mg BID GTB Last administered on 06/16/17 09:54; Admin Dose 200 MG; Start 04/16/17 at 13:00 Citalopram Hydrobromide (Celexa) 20 mg DAILY NGT Last administered on 06/16/17 09:53; Admin Dose 20 MG; Start 04/19/17 at 09:00 Hydralazine HCl (Apresoline) 20 mg Q6H PRN IV sbp ABOVE 160 Last administered on 06/14/17 12:08; Admin Dose 20 MG; Start 04/18/17 at 18:30 Chlorhexidine Gluconate (Peridex) 15 ml BID MT Last administered on 06/16/17 09 :52; Admin Dose 15 ML; Start 04/22/17 at 21:00 Vitamin A/Vitamin D (Vitamin A & D Oint) 1 applic TID TOP Last administered on 06/16/17 12:16; Admin Dose 1 APPLIC; Start 04/22/17 at 21:00 Vitamin A/Vitamin D (Vitamin A & D Oint) 1 applic TID PRN TOP DRYNESS Last administered on 04/22/17 15:29; Admin Dose 1 APPLIC; Start 04/22/17 at 15:00 Acetaminophen/ Hydrocodone Bitart ([place] (5/325)) 1 tab Q6H GTB Last administered on 06/16/17 09:55; Admin Dose 1 TAB; Start 04/22/17 at 21:30 Diltiazem HCl 5 mg 5 mg Q1H PRN IV HEART RATE GREATER THAN 120 Last administered on 04/29/17 06:17; Admin Dose 5 MG; Start 04/29/17 at 05:00 Sodium Chloride 1,000 ml @ 0 mls/hr Q0M IV Last administered on 05/01/17 03: 00; Admin Dose 1,000 MLS/HR; Start 05/01/17 at 03:00 Sodium Chloride 1,000 ml @ 0 mls/hr Q0M IV Last administered on 05/01/17 04: 00; Admin Dose 1,000 MLS/HR; Start 05/01/17 at 03:30 Diltiazem HCl (Cardizem-D5W 125 Mg/125 ml Drip) 125 ml @ 5 mls/hr TITRATE IV Last administered on 05/02/17 19:11; Admin Dose 5 MLS/HR; Start 05/02/17 at 19: 00 Metoprolol Tartrate (Lopressor) 25 mg QID GTB Last administered on 06/16/17 09: 53; Admin Dose 25 MG; Start 05/07/17 at 09:00 Vitamin B Complex/ Vitamin C (Berocca) 1 cap DAILY PO Last administered on 09:55; Admin Dose 1 CAP; Start 05/13/17 at 09:00 Aspirin (Aspirin) 81 mg DAILY NGT Last administered on 06/16/17 09:56; Admin Dose 81 MG; Start 05/19/17 at 09:00 Lansoprazole (Prevacid) 30 mg BID@,18 GTB Last administered on 06/16/17 06:52 ; Admin Dose 30 MG; Start 05/20/17 at 18:00 Multivitamins (Multivitamin) 30 ml DAILY GTB Last administered on 06/16/17 09: 52; Admin Dose 30 ML; Start 05/24/17 at 09:00 Epoetin [place] 92379 units 12,000 units TuThSa@17 SC Last administered on 17:15; Admin Dose 12,000 UNITS; Start 06/05/17 at 17:00 Cefepime HCl (Maxipime 1gm/50 ml (Pmx)) 50 ml @ 100 mls/hr DAILY IVPB Last administered on 06/16/17 09:52; Admin Dose 100 MLS/HR; Start 06/13/17 at 09:30 Levothyroxine Sodium (Synthroid) 175 mcg DAILY@06 GTB Last administered on 05:22; Admin Dose 175 MCG; Start 06/16/17 at 06:00 MARGOT WILLS NP Jun 16, 2017 16:54
[2017-06-17] VITALS (20 sets, daily range): BP systolic 105–132; BP diastolic 49–69; PULSE 72–108; RESP 17–18
[2017-06-17] MEDS: METOCLOPRAMIDE 10 MG INJ IV SCH ×4 (00:22→17:50)
[2017-06-17] MEDS: ALBUTEROL/IPRATROPIUM (NEB) 3 ML AMP HHN SCH ×4 (01:24→20:36)
[2017-06-17] MEDS: HYDROCODONE/APAP (5/325) TAB GTB SCH ×4 (03:30→21:29)
[2017-06-17] MEDS: INSULIN ASPART [NOVOLOG] 3 ML PEN SC SCH ×4 (06:00→17:56)
[2017-06-17] MEDS: LEVOTHYROXINE 175 MCG TAB GTB SCH (06:12)
[2017-06-17 07:00] LABS: ADD UMIC YES; UR ASCORBIC ACID 40 mg/dL (NEGATIVE); UR BACTERIA FEW /HPF (NONE SEEN); UR BILIRUBIN (Dip) NEGATIVE (NEGATIVE); UR BLOOD (Dip) 1+ mg/dL (NEGATIVE); UR CLARITY TURBID (CLEAR); UR COLOR AMBER (YELLOW); UR GLUCOSE (Dip) NEGATIVE (NEGATIVE); UR KETONES (Dip) NEGATIVE (NEGATIVE); UR LEUKOCYTE ESTERASE (Dip) 3+ Leu/ul (NEGATIVE); UR MUCUS FEW /HPF (NONE SEEN); UR NITRITE (Dip) NEGATIVE (NEGATIVE); UR NONSQUAMOUS EPITHELIAL CELL 3 /HPF (NONE SEEN); UR RBC 62 /HPF (0-5); UR SPECIFIC GRAVITY (Dip) 1.014 (1.003-1.030); UR SQUAMOUS EPITHELIAL CELL FEW /HPF (FEW); UR TOTAL PROTEIN (Dip) 2+ mg/dl (NEGATIVE); UR UROBILINOGEN (Dip) NEGATIVE (NEGATIVE); UR WBC CLUMPS MANY /HPF (NONE SEEN)
[2017-06-17 07:15] LABS: ABNORMAL IP MESSAGE 1; BASOPHIL # 0.1 10^3/ul (0.0-0.1); BASOPHILS % 0.8 % (0.0-2.0); EOSINOPHILS # 0.5 10^3/ul (0.0-0.5); EOSINOPHILS % 3.7 % (0.0-7.0); HEMATOCRIT 27.7 % (37.0-47.0); HEMOGLOBIN 8.7 g/dl (12.0-16.0); LYMPHOCYTES # 1.5 10^3/ul (0.8-2.9); LYMPHOCYTES % 11.1 % (15.0-51.0); MEAN CORPUSCULAR HEMOGLOBIN 31.1 pg (29.0-33.0); MEAN CORPUSCULAR HGB CONC 31.4 g/dl (32.0-37.0); MEAN CORPUSCULAR VOLUME 98.9 fl (82.0-101.0); MEAN PLATELET VOLUME 9.3 fl (7.4-10.4); MONOCYTE # 1.6 10^3/ul (0.3-0.9); NEUTROPHILS % 60.8 % (39.0-77.0); NUCLEATED RED BLOOD CELLS # 0.1 10^3/ul (0.0-0.0); NUCLEATED RED BLOOD CELLS% 0.5 /100WBC (0.0-0.0); PLATELET COUNT 382 10^3/UL (140-415); RED CELL DISTRIBUTION WIDTH 18.6 % (11.5-14.5); WHITE BLOOD COUNT 13.7 10^3/ul (4.8-10.8)
[2017-06-17 07:24] LABS: CALCIUM 8.8 mg/dl (8.4-10.2); CREATININE 1.69 mg/dl (0.44-1.00); MAGNESIUM 2.4 mg/dl (1.7-2.5); PHOSPHORUS 2.9 mg/dl (2.5-4.9); POTASSIUM 3.4 mmol/L (3.5-5.1)
[2017-06-17 07:28] LABS: POSITIVE DIFF @See below
[2017-06-17] MEDS: METOPROLOL 25 MG TAB GTB SCH ×4 (09:00→21:30)
[2017-06-17] MEDS: AMIODARONE 200 MG TAB GTB SCH ×2 (09:00→21:30)
--- NOTE | 2017-06-17 09:06 | PN ---
DATE: 06/17/2017 SUBJECTIVE DATA: The patient is currently receiving hemodialysis. No other events noted. OBJECTIVE DATA: VITAL SIGNS: Blood pressure is 129/61, respirations 18, pulse 71, temperature 97.7. HEENT: Head is normocephalic. NECK: Supple. HEART: Regular rate. LUNGS: Show diminished breath sounds at the base. ABDOMEN: Soft, nontender to palpation. No rebound or guarding. EXTREMITIES: Negative for clubbing, cyanosis. Positive edema. DERMATOLOGIC: Clean, no rashes. MUSCULOSKELETAL: No joint effusion. NEUROLOGIC: Unchanged exam. MEDICATIONS: Reviewed. LABORATORY AND DIAGNOSTIC DATA: Shows a white count of 13.7, hemoglobin 8.7, crit 27.7, platelet count 382. Sodium 132, potassium 3.4, chloride 96, bicarb 32, BUN 46, creatinine 1.69. ASSESSMENT AND PLAN: 1. Ventilatory-dependent respiratory failure. Vent settings have been reviewed. Continue to monitor. Follow up Pulmonary. 2. End-stage renal disease. The patient is currently on hemodialysis, continue. 3. Volume overload, improving. Continue ultrafiltration with dialysis. 4. Anemia. Monitor H and H levels. Continue Epogen. 5. Sepsis, status post shock. The patient is completing antibiotic course. 6. Sepsis secondary to urinary tract infection. Continue current antibiotic regimen. 7. Encephalopathy. Mental status is improving. Continue to monitor. 8. Hypothyroidism. Continue Synthroid. 9. Dysphagia, status post percutaneous endoscopic gastrostomy. Continue tube feeding. 10. History of thyroid cancer with tracheomalacia. 11. Status post gastrointestinal bleed. 12. Adrenal insufficiency. 13. Gastrointestinal and deep venous thrombosis prophylaxis. Dictated By: Abebe Valderrama DO /maqruita/laith /Document#: [id number]
--- NOTE | 2017-06-17 09:07 | CONS ---
Date/Time of Note Date/Time of Note DATE: 06/17/17 TIME: 09:05 Consult Date/Type/Reason Admit Date/Time Apr 11, 2017 at 11:28 Initial Consult Date 04/12/17 Type of Consultation: CARDIOLOGY Ordering Provider: NINA MACIEL DO Subjective CARDIOLOGY FOLLOW UP NOTE: D/W staff and . rhythm was reviewed. pt remains in NSR. no afib overnight no reports of any chest pain or pressure or palpitations. pt is still s/p trach . no reported active bleeding s/p HD today and tolerated it well. Objective: General: s/p trach on O2 now. HEENT: NC/AT. . oropharynx with multiple lesions. . NECK: NO JVD. no stridor. s/p trach on O2 CV: RRR. systolic ejection murmur; no gallop or rubs. PULM: + mild rhonchi. no wheezes. GI: SOFT, NT, ND, no rebound or guarding s/p PEG Extremity: 1-2+ B/L LE edema. no clubbing. neuro: awake and alert. follows command appropriately . Psych: calm rectal: deferred Derm: no active bleeding chest: s/p right chest HD access in place Objective Vital Signs Date Time Temp Pulse Resp B/P Pulse Ox O2 Delivery O2 Flow Rate FiO2 06/17/17 08:14 79 06/17/17 07:55 97.7 18 129/61 98 06/17/17 01:25 5.0 28 06/16/17 08:10 Aerosol T Tube Intake and Output 06/16/17 06/16/17 06/17/17 15:00 23:00 07:00 Intake Total 860 ml 830 ml Output Total 100 ml 250 ml Balance 760 ml 580 ml Results/Medications Result Diagram: 06/17/17 0626 06/17/17 0626 Results 24 hrs Laboratory Tests Test 06/16/17 12:15 06/16/17 18:48 06/17/17 00:21 06/17/17 04:46 Bedside Glucose 125 123 123 Urine Color XOCHITL Urine Clarity TURBID A Urine pH 5.0 Urine Specific [place] 1.014 Urine Ketones NEGATIVE Urine Nitrite NEGATIVE Urine Bilirubin NEGATIVE Urine Urobilinogen NEGATIVE Urine Leukocyte Esterase 3+ H Urine Microscopic RBC 62 H Urine Microscopic WBC > 182 H Urine Squamous Epithelial Cells FEW Urine Bacteria FEW A Urine Hyaline Casts FEW A Urine Mucus FEW A Urine Hemoglobin 1+ H Urine Glucose NEGATIVE Urine Total Protein 2+ H Test 06/17/17 06:13 06/17/17 06:26 Bedside Glucose 136 White Blood Count 13.7 #H Red Blood Count 2.80 L Hemoglobin 8.7 L Hematocrit 27.7 L Mean Corpuscular Volume 98.9 Mean Corpuscular Hemoglobin 31.1 Mean Corpuscular Hemoglobin Concent 31.4 L Red Cell Distribution Width 18.6 H Platelet Count 382 Mean Platelet Volume 9.3 Neutrophils % 60.8 Lymphocytes % 11.1 L Monocytes % 12.0 H Eosinophils % 3.7 Basophils % 0.8 Nucleated Red Blood Cells % 0.5 H Neutrophils # (Manual) 8.4 H Lymphocytes # 1.5 Monocytes # 1.6 H Eosinophils # 0.5 Basophils # 0.1 Nucleated Red Blood Cells # 0.1 H Sodium Level 132 L Potassium Level 3.4 L Chloride Level 96 L Carbon Dioxide Level 32 H Anion Gap 7 L Blood Urea Nitrogen 46 H Creatinine 1.69 H Glucose Level 106 Calcium Level 8.8 Phosphorus Level 2.9 Magnesium Level 2.4 Medications Current Medications Metoprolol Tartrate (Lopressor) 5 mg Q4H PRN IV HR>110 Hold SBP<110 Last administered on 04/20/17 17:36; Admin Dose 5 MG; Start 04/11/17 at 13:30 Miscellaneous Information 1 ea NOTE XX ; Start 04/11/17 at 16:30 Glucose (Glutose) 15 gm Q15M PRN PO DECREASED GLUCOSE Last administered on 05/07 03:27; Admin Dose 15 GM; Start 04/11/17 at 16:30 Glucose (Glutose) 22.5 gm Q15M PRN PO DECREASED GLUCOSE; Start 04/11/17 at 16: 30 Dextrose (D50w Syringe) 25 ml Q15M PRN IV DECREASED GLUCOSE Last administered on 04/12/17 23:56; Admin Dose 25 ML; Start 04/11/17 at 16:30 Dextrose (D50w Syringe) 50 ml Q15M PRN IV DECREASED GLUCOSE; Start 04/11/17 at 16:30 Glucagon (Glucagen) 1 mg Q15M PRN IM DECREASED GLUCOSE; Start 04/11/17 at 16:30 Glucose (Glutose) 15 gm Q15M PRN BUCCAL DECREASED GLUCOSE; Start 04/11/17 at 16 :30 Metoclopramide HCl (Reglan) 10 mg Q6 IV Last administered on 06/17/17 06:12; Admin Dose 10 MG; Start 04/12/17 at 18:00 Insulin Aspart (Novolog Insulin Pen) NOVOLOG *MILD* ALGORI... Q6H SC Last administered on 06/15/17 12:24; Admin Dose 1 UNIT; Start 04/15/17 at 00:00 IV Flush (NS 10 ml) 10 ml PRN PRN IV FLUSH LINE Last administered on 06/12/17 23:32; Admin Dose 10 ML; Start 04/15/17 at 13:00 Amiodarone HCl (Cordarone) 200 mg BID GTB Last administered on 06/16/17 21:26; Admin Dose 200 MG; Start 04/16/17 at 13:00 Citalopram Hydrobromide (Celexa) 20 mg DAILY NGT Last administered on 06/16/17 09:53; Admin Dose 20 MG; Start 04/19/17 at 09:00 Hydralazine HCl (Apresoline) 20 mg Q6H PRN IV sbp ABOVE 160 Last administered on 06/14/17 12:08; Admin Dose 20 MG; Start 04/18/17 at 18:30 Chlorhexidine Gluconate (Peridex) 15 ml BID MT Last administered on 06/16/17 21 :26; Admin Dose 15 ML; Start 04/22/17 at 21:00 Vitamin A/Vitamin D (Vitamin A & D Oint) 1 applic TID TOP Last administered on 06/16/17 21:25; Admin Dose 1 APPLIC; Start 04/22/17 at 21:00 Vitamin A/Vitamin D (Vitamin A & D Oint) 1 applic TID PRN TOP DRYNESS Last administered on 04/22/17 15:29; Admin Dose 1 APPLIC; Start 04/22/17 at 15:00 Acetaminophen/ Hydrocodone Bitart ([place] (5/325)) 1 tab Q6H GTB Last administered on 06/16/17 21:29; Admin Dose 1 TAB; Start 04/22/17 at 21:30 Diltiazem HCl 5 mg 5 mg Q1H PRN IV HEART RATE GREATER THAN 120 Last administered on 04/29/17 06:17; Admin Dose 5 MG; Start 04/29/17 at 05:00 Sodium Chloride 1,000 ml @ 0 mls/hr Q0M IV Last administered on 05/01/17 03: 00; Admin Dose 1,000 MLS/HR; Start 05/01/17 at 03:00 Sodium Chloride 1,000 ml @ 0 mls/hr Q0M IV Last administered on 05/01/17 04: 00; Admin Dose 1,000 MLS/HR; Start 05/01/17 at 03:30 Diltiazem HCl (Cardizem-D5W 125 Mg/125 ml Drip) 125 ml @ 5 mls/hr TITRATE IV Last administered on 05/02/17 19:11; Admin Dose 5 MLS/HR; Start 05/02/17 at 19: 00 Metoprolol Tartrate (Lopressor) 25 mg QID GTB Last administered on 06/16/17 21: 26; Admin Dose 25 MG; Start 05/07/17 at 09:00 Vitamin B Complex/ Vitamin C (Berocca) 1 cap DAILY PO Last administered on 09:55; Admin Dose 1 CAP; Start 05/13/17 at 09:00 Aspirin (Aspirin) 81 mg DAILY NGT Last administered on 06/16/17 09:56; Admin Dose 81 MG; Start 05/19/17 at 09:00 Lansoprazole (Prevacid) 30 mg BID@,18 GTB Last administered on 06/16/17 17:12 ; Admin Dose 30 MG; Start 05/20/17 at 18:00 Multivitamins (Multivitamin) 30 ml DAILY GTB Last administered on 06/16/17 09: 52; Admin Dose 30 ML; Start 05/24/17 at 09:00 Epoetin Perry (Epogen (Esrd)) 12,000 units TuThSa@17 SC Last administered on 06/14 17:15; Admin Dose 12,000 UNITS; Start 06/05/17 at 17:00 Levothyroxine Sodium (Synthroid) 175 mcg DAILY@06 GTB Last administered on 06:12; Admin Dose 175 MCG; Start 06/16/17 at 06:00 Assessment/Plan Chief Complaint/Hosp Course 1. acute on chronic hypoxemic respiratory failure: 2. S/P NSTEMI: due to demand ischemia. 3. CHF/ fluid overload: due to diastolic heart failure and renal failure 4. moderate 5. Arrhythmia and P afib, frequent PVC: currently in NSR. 6. ANEMIA: s/p multiple transfusion 7. s/p pneumonia, . 8. s/p sepsis and shock: BP is stable now. 9. Anasarca 10. s/p cardiopulm arrest due to resp failure 11. renal failure : ON HD now. Rec: cont resp care. . defer to PULM Team. currently on weaning protocol correct lytes prn. CONT betablocker as tolerated. . cont thyroid supplement . cont tele monitoring HD as per renal transfuse prn, currently H/H has remained stable though. cont low dose ASA 81 mg only due to recurrent anemia. THANK YOU. Problems: FRANCISCO BLACKWOOD MD Jun 17, 2017 09:07
[2017-06-17] MEDS: VITAMIN B COMPLEX/VIT C CAP PO SCH (09:34)
[2017-06-17] MEDS: MULTIVITAMINS 30 ML CUP GTB SCH (09:34)
[2017-06-17] MEDS: ASPIRIN 81 MG TAB NGT SCH (09:34)
[2017-06-17] MEDS: CITALOPRAM 20 MG TAB NGT SCH (09:34)
[2017-06-17] MEDS: LANSOPRAZOLE 30 MG CAP GTB SCH ×2 (09:34→17:49)
[2017-06-17] MEDS: VITAMIN A & D 5 GM OINT PACKET TOP SCH ×3 (09:35→21:29)
[2017-06-17] MEDS: CHLORHEXIDINE GLUCONATE 15 ML UD CUP MT SCH ×2 (09:35→21:29)
--- NOTE | 2017-06-17 11:57 | CONS ---
Date/Time of Note Date/Time of Note DATE: 06/17/17 TIME: 11:55 Assessment/Plan Assessment/Plan Additional Assessment/Plan Assessment and recommendations; 1. Patient admitted with sepsis due to pneumonia with significant interval improvement. 2. Chronic respiratory failure, patient now doing very well on tracheal T piece. 3. History of redo tracheostomy 2. 4. End-stage renal disease. 5. Anemia. 6. Severe generalized deconditioning. 7. Remote history of glossal cancer. Continue current treatment. Consultation Date/Type/Reason Admit Date/Time Apr 11, 2017 at 11:28 Initial Consult Date 05/01/17 Type of Consultation: Pulmonary Referring Provider: NINA MACIEL DO 24 HR Interval Summary Free Text/Dictation Patient condition is stable. Doing very well on T-piece. Remains awake and alert. General exam; elderly woman, currently in no distress. Exam/Review of Systems Vital Signs Vitals Vital Signs Date Time Temp Pulse Resp B/P Pulse Ox O2 Delivery O2 Flow Rate FiO2 06/17/17 11:54 98.3 99 17 107/58 96 06/17/17 09:45 Aerosol 28 T Tube 06/17/17 09:45 5.0 Intake and Output 06/16/17 06/16/17 06/17/17 15:00 23:00 07:00 Intake Total 860 ml 830 ml Output Total 100 ml 250 ml Balance 760 ml 580 ml Exam HEENT exam; supple neck, no JVD. No lymphadenopathy. Midline trachea. No thyromegaly. Tracheostomy in place. Patient has fair dentition. Chest exam; diminished but clear breath sounds. S1-S2 audible, no murmurs. Regular rhythm. Abdomen exam; soft, nontender. G-tube in place. Bowel sounds audible. Extremity exam; trace generalized edema. [employer] exam; no focal motor deficit. Results Result Diagram: 06/17/17 0626 06/17/17625 Results 24 hrs Laboratory Tests Test 06/16/17 12:15 06/16/17 18:48 06/17/17 00:21 06/17/17 04:46 Bedside Glucose 125 123 123 Urine Color XOCHITL Urine Clarity TURBID A Urine pH 5.0 Urine Specific [place] 1.014 Urine Ketones NEGATIVE Urine Nitrite NEGATIVE Urine Bilirubin NEGATIVE Urine Urobilinogen NEGATIVE Urine Leukocyte Esterase 3+ H Urine Microscopic RBC 62 H Urine Microscopic WBC > 182 H Urine Squamous Epithelial Cells FEW Urine Bacteria FEW A Urine Hyaline Casts FEW A Urine Mucus FEW A Urine Hemoglobin 1+ H Urine Glucose NEGATIVE Urine Total Protein 2+ H Test 06/17/17 06:13 06/17/17 06:26 Bedside Glucose 136 White Blood Count 13.7 #H Red Blood Count 2.80 L Hemoglobin 8.7 L Hematocrit 27.7 L Mean Corpuscular Volume 98.9 Mean Corpuscular Hemoglobin 31.1 Mean Corpuscular Hemoglobin Concent 31.4 L Red Cell Distribution Width 18.6 H Platelet Count 382 Mean Platelet Volume 9.3 Neutrophils % 60.8 Lymphocytes % 11.1 L Monocytes % 12.0 H Eosinophils % 3.7 Basophils % 0.8 Nucleated Red Blood Cells % 0.5 H Neutrophils # (Manual) 8.4 H Lymphocytes # 1.5 Monocytes # 1.6 H Eosinophils # 0.5 Basophils # 0.1 Nucleated Red Blood Cells # 0.1 H Sodium Level 132 L Potassium Level 3.4 L Chloride Level 96 L Carbon Dioxide Level 32 H Anion Gap 7 L Blood Urea Nitrogen 46 H Creatinine 1.69 H Glucose Level 106 Calcium Level 8.8 Phosphorus Level 2.9 Magnesium Level 2.4 Medications Medications Current Medications Metoprolol Tartrate (Lopressor) 5 mg Q4H PRN IV HR>110 Hold SBP<110 Last administered on 04/20/17 17:36; Admin Dose 5 MG; Start 04/11/17 at 13:30 Miscellaneous Information 1 ea NOTE XX ; Start 04/11/17 at 16:30 Glucose (Glutose) 15 gm Q15M PRN PO DECREASED GLUCOSE Last administered on 05/07 03:27; Admin Dose 15 GM; Start 04/11/17 at 16:30 Glucose (Glutose) 22.5 gm Q15M PRN PO DECREASED GLUCOSE; Start 04/11/17 at 16: 30 Dextrose (D50w Syringe) 25 ml Q15M PRN IV DECREASED GLUCOSE Last administered on 04/12/17 23:56; Admin Dose 25 ML; Start 04/11/17 at 16:30 Dextrose (D50w Syringe) 50 ml Q15M PRN IV DECREASED GLUCOSE; Start 04/11/17 at 16:30 Glucagon (Glucagen) 1 mg Q15M PRN IM DECREASED GLUCOSE; Start 04/11/17 at 16:30 Glucose (Glutose) 15 gm Q15M PRN BUCCAL DECREASED GLUCOSE; Start 04/11/17 at 16 :30 Metoclopramide HCl (Reglan) 10 mg Q6 IV Last administered on 06/17/17 06:12; Admin Dose 10 MG; Start 04/12/17 at 18:00 Insulin Aspart (Novolog Insulin Pen) NOVOLOG *MILD* ALGORI... Q6H SC Last administered on 06/15/17 12:24; Admin Dose 1 UNIT; Start 04/15/17 at 00:00 IV Flush (NS 10 ml) 10 ml PRN PRN IV FLUSH LINE Last administered on 06/12/17 23:32; Admin Dose 10 ML; Start 04/15/17 at 13:00 Amiodarone HCl (Cordarone) 200 mg BID GTB Last administered on 06/16/17 21:26; Admin Dose 200 MG; Start 04/16/17 at 13:00 Citalopram Hydrobromide (Celexa) 20 mg DAILY NGT Last administered on 06/17/17 09:34; Admin Dose 20 MG; Start 04/19/17 at 09:00 Hydralazine HCl (Apresoline) 20 mg Q6H PRN IV sbp ABOVE 160 Last administered on 06/14/17 12:08; Admin Dose 20 MG; Start 04/18/17 at 18:30 Chlorhexidine Gluconate (Peridex) 15 ml BID MT Last administered on 06/17/17 09 :35; Admin Dose 15 ML; Start 04/22/17 at 21:00 Vitamin A/Vitamin D (Vitamin A & D Oint) 1 applic TID TOP Last administered on 06/17/17 09:35; Admin Dose 1 APPLIC; Start 04/22/17 at 21:00 Vitamin A/Vitamin D (Vitamin A & D Oint) 1 applic TID PRN TOP DRYNESS Last administered on 04/22/17 15:29; Admin Dose 1 APPLIC; Start 04/22/17 at 15:00 Acetaminophen/ Hydrocodone Bitart ([place] (5/325)) 1 tab Q6H GTB Last administered on 06/17/17 09:34; Admin Dose 1 TAB; Start 04/22/17 at 21:30 Diltiazem HCl 5 mg 5 mg Q1H PRN IV HEART RATE GREATER THAN 120 Last administered on 04/29/17 06:17; Admin Dose 5 MG; Start 04/29/17 at 05:00 Sodium Chloride 1,000 ml @ 0 mls/hr Q0M IV Last administered on 05/01/17 03: 00; Admin Dose 1,000 MLS/HR; Start 05/01/17 at 03:00 Sodium Chloride 1,000 ml @ 0 mls/hr Q0M IV Last administered on 05/01/17 04: 00; Admin Dose 1,000 MLS/HR; Start 05/01/17 at 03:30 Diltiazem HCl (Cardizem-D5W 125 Mg/125 ml Drip) 125 ml @ 5 mls/hr TITRATE IV Last administered on 05/02/17 19:11; Admin Dose 5 MLS/HR; Start 05/02/17 at 19: 00 Metoprolol Tartrate (Lopressor) 25 mg QID GTB Last administered on 06/16/17 21: 26; Admin Dose 25 MG; Start 05/07/17 at 09:00 Vitamin B Complex/ Vitamin C (Berocca) 1 cap DAILY PO Last administered on 09:34; Admin Dose 1 CAP; Start 05/13/17 at 09:00 Aspirin (Aspirin) 81 mg DAILY NGT Last administered on 06/17/17 09:34; Admin Dose 81 MG; Start 05/19/17 at 09:00 Lansoprazole (Prevacid) 30 mg BID@06,18 GTB Last administered on 06/17/17 09:34 ; Admin Dose 30 MG; Start 05/20/17 at 18:00 Multivitamins (Multivitamin) 30 ml DAILY GTB Last administered on 06/17/17 09: 34; Admin Dose 30 ML; Start 05/24/17 at 09:00 Epoetin [place] (Epogen (Esrd)) 12,000 units TuThSa@17 SC Last administered on 06/14 17:15; Admin Dose 12,000 UNITS; Start 06/05/17 at 17:00 Levothyroxine Sodium (Synthroid) 175 mcg DAILY@06 GTB Last administered on 06:12; Admin Dose 175 MCG; Start 06/16/17 at 06:00 EMILIANO HICKS Jun 17, 2017 11:57
--- NOTE | 2017-06-17 12:35 | PN ---
Date/Time of Note Date/Time of Note DATE: 06/17/17 TIME: 12:34 Assessment/Plan Lines/Catheters IV Catheter Type (from [facility]): Permacath Mims in Place (from [facility]): Yes Assessment/Plan Chief Complaint/Hosp Course 1. Cholelithiasis: Tolerating tube feeds; no abdominal pain/discomfort/bloating ; +bowel function -No surgical intervention required at this time 2. Pneumonia: Recurrent +sputum cultures; appears comfortable, no fevers, s/p abx; CXR: with nodule-possible aspirated tooth; ct chest: no foreign body -pulmonary toilet -wean as tolerated 3. Vent dependent respiratory failure: 2/2 aspiration PNA+ CHF;reintubated and extubated, coded 04/21 and 05/01; off vent, on tpiece -as above 4. KEYONNA: now with HD with + urine output; arranging for outpatient HD; HD today -judicious fluid management -avoid nephrotoxic agents 5. Uncontrolled Afib: s/p amiodarone drip, on oral amiodarone; episodes of Afib ; currently SR -medical optimization 6. Leukocytosis with lactic acidosis: 2/2 pneumonia +/- steroids vs.fungemia vs other (urine, repeat blood cultures negative);up today -per ID 7. Macrocytic anemia: chronic vs. dilutional vs. acute bleed vs. b12/folate deficiency; hh stable -monitor -Transfuse as needed 8. Electrolyte imbalance: (hyponatremia, hypokalemia); improved -electrolyte optimization 9. CHF: BNP elevated -judicious fluid management -medical optimization 10. Adrenal Insufficiency -solucortef 11. Hypothyroidism -on synthroid 12. Hypoalbuminemia: 2/2 malnutrition +/- inflammation; decreased; tolerating tf ; -nutrition optimization -as above 13. Eyelid swelling probably 2nd dependent edema. ? infection (doubt) -defer to primary team Thank you, Problems: Subjective 24 Hr Interval Summary Arousal, comfortable. Leukocytosis improving. No fevers, chills, sob, cp, palpitations, change in tele rhythm, n/v/d/dysuria. +uop. Exam/Review of Systems Vital Signs Vitals Vital Signs Date Time Temp Pulse Resp B/P Pulse Ox O2 Delivery O2 Flow Rate FiO2 06/17/17 12:21 99 06/17/17 11:54 98.3 17 107/58 96 06/17/17 09:45 Aerosol 28 T Tube 06/17/17 09:45 5.0 Intake and Output 06/16/17 06/16/17 06/17/17 14:59 22:59 06:59 Intake Total 860 ml 830 ml Output Total 100 ml 250 ml Balance 760 ml 580 ml Exam Free Text/Dictation Constitutional: fully awake, alert pleasant Head: atraumatic, normocephalic Eyes: PERRL, edema bilateral upper eyelids without erythema, nl sclera; ENMT: No mucosa pink and moist (pink and moist with healed perioral lesions), tooth missing, mild facial swelling Neck: non-tender, supple, tracheostomy Respiratory: diminished, weaned off vent, min sputum Cardiovascular: nl pulses, regular rate and rhythm, Gastrointestinal: non distended, GT tubes site no erythema, no drainage, non tenderness, bowel sounds x 4 quads, soft; tf ongoing Genitourinary - Female: nl external genitalia; +uop per mims with yellow output with sediments Musculoskeletal: nl extremities to inspection, min edema Extremities: normal pulses, bilateral upper/lower extremity edema 1+; improved extremity edema Neurological: responsive Skin: nl turgor, No rash or lesions Lymph: nl lymph node Results Result Diagram: 06/17/1762506/17/1726 PATRICK QUINTERO MD Jun 17, 2017 12:35
[2017-06-17] MEDS: EPOETIN 4000 UNITS/1 ML INJ (ESRD) SC SCH (17:53)
--- NOTE | 2017-06-17 19:51 | PN ---
DATE: 06/17/2017 SUBJECTIVE DATA: The patient is alert, looks comfortable. at bedside. She is afebrile. LABORATORY AND DIAGNOSTIC DATA: WBC today 13.7, H and H 8.7 and 27.7, and platelets 382. INDWELLINGS: The patient has right chest PermCath. MICROBIOLOGY: Urine culture growing Proteus mirabilis, multidrug resistant, susceptible only to Zosyn. PHYSICAL EXAMINATION: GENERAL: This is a wasted, well-developed elderly woman who is awake, in no distress. HEENT: Head atraumatic, normocephalic. Sclerae anicteric. Buccal mucosa dry. NECK: Supple. CHEST: Rise symmetrical. Breath sounds diminished at the bases. HEART: S1, S2. ABDOMEN: Soft, bowel sounds present. EXTREMITIES: Without cyanosis. SKIN: Positive for anasarca. ASSESSMENT: 1. Systemic inflammatory response syndrome with resolving leukocytosis secondary to number 2. 2. Proteus mirabilis urinary tract infection (UTI). 3. Chronic respiratory failure status post tracheostomy. 4. End-stage renal disease, hemodialysis dependent. 5. History of Clostridium difficile colitis. 6. Left upper extremity deep vein thrombosis (DVT). 7. Status post fungemia. PLAN: 1. The patient remains stable. 2. We are going to start her on Zosyn to treat urinary tract infection as her urine looks very cloudy in the catheter. 3. Continue present care as per primary team and consultants. Dictated By: Doyle Patton NP /marquita/jimmy /Document#: [id number]
[2017-06-17] MEDS: PIPER-TAZO 2.25 GM (PMX) 50 ML IVPB SCH (21:29)
[2017-06-18] VITALS (17 sets, daily range): BP systolic 112–187; BP diastolic 58–95; PULSE 88–93; RESP 18–19
[2017-06-18] MEDS: METOCLOPRAMIDE 10 MG INJ IV SCH ×5 (00:25→23:39)
[2017-06-18] MEDS: ALBUTEROL/IPRATROPIUM (NEB) 3 ML AMP HHN SCH ×4 (02:15→20:09)
[2017-06-18] MEDS: HYDROCODONE/APAP (5/325) TAB GTB SCH ×4 (04:14→21:33)
[2017-06-18] MEDS: LANSOPRAZOLE 30 MG CAP GTB SCH ×2 (05:18→17:25)
[2017-06-18] MEDS: PIPER-TAZO 2.25 GM (PMX) 50 ML IVPB SCH ×3 (05:18→21:33)
[2017-06-18] MEDS: LEVOTHYROXINE 175 MCG TAB GTB SCH (05:18)
[2017-06-18] MEDS: INSULIN ASPART [NOVOLOG] 3 ML PEN SC SCH ×5 (05:21→23:42)
[2017-06-18 07:37] LABS: ABNORMAL IP MESSAGE 1; BASOPHIL # 0.1 10^3/ul (0.0-0.1); BASOPHILS % 0.7 % (0.0-2.0); EOSINOPHILS # 0.5 10^3/ul (0.0-0.5); EOSINOPHILS % 2.7 % (0.0-7.0); HEMATOCRIT 29.1 % (37.0-47.0); HEMOGLOBIN 9.2 g/dl (12.0-16.0); LYMPHOCYTES # 1.3 10^3/ul (0.8-2.9); LYMPHOCYTES % 7.4 % (15.0-51.0); MEAN CORPUSCULAR HEMOGLOBIN 31.2 pg (29.0-33.0); MEAN CORPUSCULAR HGB CONC 31.6 g/dl (32.0-37.0); MEAN CORPUSCULAR VOLUME 98.6 fl (82.0-101.0); MEAN PLATELET VOLUME 9.2 fl (7.4-10.4); MONOCYTE # 2.1 10^3/ul (0.3-0.9); MONOCYTES % 11.6 % (0.0-11.0); NEUTROPHILS % 70.2 % (39.0-77.0); NUCLEATED RED BLOOD CELLS # 0.1 10^3/ul (0.0-0.0); NUCLEATED RED BLOOD CELLS% 0.3 /100WBC (0.0-0.0); PLATELET COUNT 359 10^3/UL (140-415); RED BLOOD COUNT 2.95 10^6/ul (4.20-5.40); WHITE BLOOD COUNT 17.8 10^3/ul (4.8-10.8)
[2017-06-18 07:39] LABS: POSITIVE DIFF @See below
[2017-06-18 08:18] LABS: CALCIUM 8.9 mg/dl (8.4-10.2); CREATININE 1.6 mg/dl (0.44-1.00); MAGNESIUM 2.3 mg/dl (1.7-2.5); PHOSPHORUS 2.7 mg/dl (2.5-4.9); POTASSIUM 3.1 mmol/L (3.5-5.1)
[2017-06-18] MEDS: MULTIVITAMINS 30 ML CUP GTB SCH (08:56)
[2017-06-18] MEDS: ASPIRIN 81 MG TAB NGT SCH (08:57)
[2017-06-18] MEDS: VITAMIN A & D 5 GM OINT PACKET TOP SCH ×3 (08:57→20:16)
[2017-06-18] MEDS: METOPROLOL 25 MG TAB GTB SCH ×4 (08:58→20:15)
[2017-06-18] MEDS: CHLORHEXIDINE GLUCONATE 15 ML UD CUP MT SCH ×2 (08:58→20:16)
[2017-06-18] MEDS: CITALOPRAM 20 MG TAB NGT SCH (08:58)
[2017-06-18] MEDS: AMIODARONE 200 MG TAB GTB SCH ×2 (08:58→20:15)
[2017-06-18] MEDS: VITAMIN B COMPLEX/VIT C CAP PO SCH (08:58)
--- NOTE | 2017-06-18 09:48 | CONS ---
Date/Time of Note Date/Time of Note DATE: 06/18/17 TIME: 09:46 Consult Date/Type/Reason Admit Date/Time Apr 11, 2017 at 11:28 Initial Consult Date 04/12/17 Type of Consultation: cardiology Ordering Provider: NINA MACIEL DO Subjective CARDIOLOGY FOLLOW UP NOTE: D/W staff and . rhythm was reviewed. pt remains in NSR. no afib overnight no reports of any chest pain or pressure or palpitations. pt is still s/p trach . no reported active bleeding she c/o mild abdominal pain today Objective: General: s/p trach on O2 now. HEENT: NC/AT. . oropharynx with multiple lesions. . NECK: NO JVD. no stridor. s/p trach on O2 CV: RRR. systolic ejection murmur; no gallop or rubs. PULM: + mild rhonchi. no wheezes. GI: SOFT, NT, ND, no rebound or guarding s/p PEG Extremity: 1-2+ B/L LE edema. no clubbing. neuro: awake and alert. follows command appropriately . Psych: calm rectal: deferred Derm: no active bleeding chest: s/p right chest HD access in place Objective Vital Signs Date Time Temp Pulse Resp B/P Pulse Ox O2 Delivery O2 Flow Rate FiO2 06/18/17 09:13 28 06/18/17 08:56 148/67 06/18/17 08:00 93 06/18/17 07:46 97 5.0 06/18/17 07:46 18 Aerosol T Tube 06/18/17 07:24 98.3 Intake and Output 06/17/17 06/17/17 06/18/17 15:00 23:00 07:00 Intake Total 500 ml 810 ml 910 ml Output Total 4000 ml 250 ml Balance -3500 ml 560 ml 910 ml Results/Medications Result Diagram: 06/18/17 0652 06/18/17 0652 Results 24 hrs Laboratory Tests Test 06/17/17 12:00 06/17/17 17:13 06/18/17 00:23 06/18/17 05:20 Bedside Glucose 178 157 122 129 Test 06/18/17 06:52 White Blood Count 17.8 #H Red Blood Count 2.95 L Hemoglobin 9.2 L Hematocrit 29.1 L Mean Corpuscular Volume 98.6 Mean Corpuscular Hemoglobin 31.2 Mean Corpuscular Hemoglobin Concent 31.6 L Red Cell Distribution Width 19.0 H Platelet Count 359 Mean Platelet Volume 9.2 Neutrophils % 70.2 Lymphocytes % 7.4 L Monocytes % 11.6 H Eosinophils % 2.7 Basophils % 0.7 Nucleated Red Blood Cells % 0.3 H Neutrophils # (Manual) 12.5 H Lymphocytes # 1.3 Monocytes # 2.1 H Eosinophils # 0.5 Basophils # 0.1 Nucleated Red Blood Cells # 0.1 H Sodium Level 136 Potassium Level 3.1 L Chloride Level 100 Carbon Dioxide Level 31 Anion Gap 8 Blood Urea Nitrogen 38 H Creatinine 1.60 H Glucose Level 134 Calcium Level 8.9 Phosphorus Level 2.7 Magnesium Level 2.3 Medications Current Medications Metoprolol Tartrate (Lopressor) 5 mg Q4H PRN IV HR>110 Hold SBP<110 Last administered on 04/20/17 17:36; Admin Dose 5 MG; Start 04/11/17 at 13:30 Miscellaneous Information 1 ea NOTE XX ; Start 04/11/17 at 16:30 Glucose (Glutose) 15 gm Q15M PRN PO DECREASED GLUCOSE Last administered on 05/07 03:27; Admin Dose 15 GM; Start 04/11/17 at 16:30 Glucose (Glutose) 22.5 gm Q15M PRN PO DECREASED GLUCOSE; Start 04/11/17 at 16: 30 Dextrose (D50w Syringe) 25 ml Q15M PRN IV DECREASED GLUCOSE Last administered on 04/12/17 23:56; Admin Dose 25 ML; Start 04/11/17 at 16:30 Dextrose (D50w Syringe) 50 ml Q15M PRN IV DECREASED GLUCOSE; Start 04/11/17 at 16:30 Glucagon (Glucagen) 1 mg Q15M PRN IM DECREASED GLUCOSE; Start 04/11/17 at 16:30 Glucose (Glutose) 15 gm Q15M PRN BUCCAL DECREASED GLUCOSE; Start 04/11/17 at 16 :30 Metoclopramide HCl (Reglan) 10 mg Q6 IV Last administered on 06/18/17 05:18; Admin Dose 10 MG; Start 04/12/17 at 18:00 Insulin Aspart (Novolog Insulin Pen) NOVOLOG *MILD* ALGORI... Q6H SC Last administered on 06/17/17 17:56; Admin Dose 1 UNIT; Start 04/15/17 at 00:00 IV Flush (NS 10 ml) 10 ml PRN PRN IV FLUSH LINE Last administered on 06/12/17 23:32; Admin Dose 10 ML; Start 04/15/17 at 13:00 Amiodarone HCl (Cordarone) 200 mg BID GTB Last administered on 06/18/17 08:58; Admin Dose 200 MG; Start 04/16/17 at 13:00 Citalopram Hydrobromide (Celexa) 20 mg DAILY NGT Last administered on 06/18/17 08:58; Admin Dose 20 MG; Start 04/19/17 at 09:00 Hydralazine HCl (Apresoline) 20 mg Q6H PRN IV sbp ABOVE 160 Last administered on 06/14/17 12:08; Admin Dose 20 MG; Start 04/18/17 at 18:30 Chlorhexidine Gluconate (Peridex) 15 ml BID MT Last administered on 06/18/17 08 :58; Admin Dose 15 ML; Start 04/22/17 at 21:00 Vitamin A/Vitamin D (Vitamin A & D Oint) 1 applic TID TOP Last administered on 06/18/17 08:57; Admin Dose 1 APPLIC; Start 04/22/17 at 21:00 Vitamin A/Vitamin D (Vitamin A & D Oint) 1 applic TID PRN TOP DRYNESS Last administered on 04/22/17 15:29; Admin Dose 1 APPLIC; Start 04/22/17 at 15:00 Acetaminophen/ Hydrocodone Bitart ([place] (5/325)) 1 tab Q6H GTB Last administered on 06/18/17 09:36; Admin Dose 1 TAB; Start 04/22/17 at 21:30 Diltiazem HCl 5 mg 5 mg Q1H PRN IV HEART RATE GREATER THAN 120 Last administered on 04/29/17 06:17; Admin Dose 5 MG; Start 04/29/17 at 05:00 Sodium Chloride 1,000 ml @ 0 mls/hr Q0M IV Last administered on 05/01/17 03: 00; Admin Dose 1,000 MLS/HR; Start 05/01/17 at 03:00 Sodium Chloride 1,000 ml @ 0 mls/hr Q0M IV Last administered on 05/01/17 04: 00; Admin Dose 1,000 MLS/HR; Start 05/01/17 at 03:30 Diltiazem HCl (Cardizem-D5W 125 Mg/125 ml Drip) 125 ml @ 5 mls/hr TITRATE IV Last administered on 05/02/17 19:11; Admin Dose 5 MLS/HR; Start 05/02/17 at 19: 00 Metoprolol Tartrate (Lopressor) 25 mg QID GTB Last administered on 06/18/17 08: 58; Admin Dose 25 MG; Start 05/07/17 at 09:00 Vitamin B Complex/ Vitamin C (Berocca) 1 cap DAILY PO Last administered on 08:58; Admin Dose 1 CAP; Start 05/13/17 at 09:00 Aspirin (Aspirin) 81 mg DAILY NGT Last administered on 06/18/17 08:57; Admin Dose 81 MG; Start 05/19/17 at 09:00 Lansoprazole (Prevacid) 30 mg BID@,18 GTB Last administered on 06/18/17 05:18 ; Admin Dose 30 MG; Start 05/20/17 at 18:00 Multivitamins (Multivitamin) 30 ml DAILY GTB Last administered on 06/18/17 08: 56; Admin Dose 30 ML; Start 05/24/17 at 09:00 Epoetin Perry (Epogen (Esrd)) 12,000 units TuThSa@17 SC Last administered on 06/17 17:53; Admin Dose 12,000 UNITS; Start 06/05/17 at 17:00 Levothyroxine Sodium 175 mcg 175 mcg DAILY@06 GTB Last administered on 05:18; Admin Dose 175 MCG; Start 06/16/17 at 06:00 Piperacillin Sod/ Tazobactam Sod (Zosyn 2.25gm/ 50ml (Pmx)) 50 ml @ 100 mls/hr Q8 IVPB Last administered on 06/18/17 05:18; Admin Dose 100 MLS/HR; Start at 22:00 Assessment/Plan Chief Complaint/Hosp Course 1. acute on chronic hypoxemic respiratory failure: 2. S/P NSTEMI: due to demand ischemia. 3. CHF/ fluid overload: due to diastolic heart failure and renal failure 4. moderate 5. Arrhythmia and P afib, frequent PVC: currently in NSR. 6. ANEMIA: s/p multiple transfusion 7. s/p pneumonia, . 8. s/p sepsis and shock: BP is stable now. 9. Anasarca 10. s/p cardiopulm arrest due to resp failure 11. renal failure : ON HD now. Rec: cont resp care. . defer to PULM Team. weaning as tolerated. correct lytes prn. CONT betablocker as tolerated. . cont thyroid supplement . cont tele monitoring HD as per renal s/p multiple transfusions. . cont low dose ASA 81 mg only due to recurrent anemia. THANK YOU. Problems: FRANCISCO BLACKWOOD MD Jun 18, 2017 09:47
[2017-06-18] MEDS ORDERED: POTASSIUM CHLORIDE 20 MEQ POWDER FOR ORAL SOLN GTB ONE (10:00)
--- NOTE | 2017-06-18 10:19 | PN ---
DATE: 06/18/2017 SUBJECTIVE DATA: The patient is stable. Had hemodialysis yesterday, tolerated well. No other acute events noted overnight. OBJECTIVE DATA: VITAL SIGNS: Blood pressure is 140/67, temperature 98.3, pulse 93, respiration 18. HEENT: Head is normocephalic. NECK: Supple. HEART: Regular rate. LUNGS: Diminished breath sounds at the base. ABDOMEN: Soft, nontender to palpation. No guarding. EXTREMITIES: Negative for clubbing, cyanosis. Positive edema. DERMATOLOGIC: Clean. No rashes. MUSCULOSKELETAL: No joint effusion. NEUROLOGIC: No change in exam. MEDICATIONS: Reviewed. LABORATORY AND DIAGNOSTIC DATA: Shows sodium 136, potassium 3.1, BUN 38, creatinine 1.60. White count 17.8, hemoglobin 9.2, hematocrit 29.1, platelet count 359,000. ASSESSMENT AND PLAN: 1. Ventilatory-dependent respiratory failure. Vent settings reviewed. ABGs reviewed. Continue to monitor. 2. End-stage renal disease. The patient is on hemodialysis. Plan for dialysis tomorrow. 3. Volume overload. Continue ultrafiltration dialysis. 4. Anemia. Monitor hemoglobin and hematocrit levels. Continue Epogen. 5. Sepsis. The patient is currently on antibiotics, continue. Etiology secondary to urinary tract infection. 6. Encephalopathy. Mental status is improving. Continue to monitor. 7. Hypothyroidism. Continue Synthroid. 8. Dysphagia status post percutaneous endoscopic gastrostomy. Continue tube feeding. 9. History of thyroid cancer with tracheomalacia. 10. Status post gastrointestinal bleed. 11. Adrenal insufficiency. 12. Gastrointestinal and deep venous thrombosis prophylaxis. Dictated By: Abebe Valderrama DO /marquita/joi /Document#: [id number]
--- NOTE | 2017-06-18 14:01 | CONS ---
Date/Time of Note Date/Time of Note DATE: 06/18/17 TIME: 13:57 Assessment/Plan Assessment/Plan Additional Assessment/Plan Assessment and recommendations; 1. Patient admitted with severe sepsis off antibiotics now. 2. Increasing leukocytosis. 3. Chronic respiratory failure, patient now weaned down to T-piece. 4. Renal failure, on hemodialysis. 5. Anemia. 6. Severe generalized deconditioning. 7. Remote history of glossal cancer. 8. Post redo tracheostomy 2. Continue current treatment. Give the patient a trial of Passy-Phil valve. Obtain a chest x-ray. I did have a very detailed discussion patient's at bedside and answered all his questions. Consultation Date/Type/Reason Admit Date/Time Apr 11, 2017 at 11:28 Initial Consult Date 05/01/17 Type of Consultation: Pulmonary Referring Provider: NINA MACIEL DO 24 HR Interval Summary Free Text/Dictation Patient's condition is stable. Remains awake and alert. Doing very well on T- piece now for several days. General exam; elderly woman, awake alert, currently in no distress. Exam/Review of Systems Vital Signs Vitals Vital Signs Date Time Temp Pulse Resp B/P Pulse Ox O2 Delivery O2 Flow Rate FiO2 06/18/17 12:12 151/74 06/18/17 12:00 88 06/18/17 11:09 98.1 18 97 06/18/17 09:13 28 06/18/17 07:46 5.0 06/18/17 07:46 Aerosol T Tube Intake and Output 06/17/17 06/17/17 06/18/17 15:00 23:00 07:00 Intake Total 500 ml 810 ml 910 ml Output Total 4000 ml 250 ml Balance -3500 ml 560 ml 910 ml Exam HEENT exam; supple neck, no JVD. No lymphadenopathy. Midline trachea. No thyromegaly. Tracheostomy in place attached to T-piece. Patient has fair dentition. Chest exam; diminished but clear breath sounds. S1-S2 audible, no murmurs. Regular rhythm. Abdomen exam; soft, nontender. Nondistended. No organomegaly. Bowel sounds audible. G-tube in place. Extremity exam; trace edema. PERFORMANCE CONSULTANT exam; no focal motor deficit. Results Result Diagram: 06/18/1752 06/18/1752 Results 24 hrs Laboratory Tests Test 06/17/17 17:13 06/18/17 00:23 06/18/17 05:20 06/18/17 06:52 Bedside Glucose 157 122 129 White Blood Count 17.8 #H Red Blood Count 2.95 L Hemoglobin 9.2 L Hematocrit 29.1 L Mean Corpuscular Volume 98.6 Mean Corpuscular Hemoglobin 31.2 Mean Corpuscular Hemoglobin Concent 31.6 L Red Cell Distribution Width 19.0 H Platelet Count 359 Mean Platelet Volume 9.2 Neutrophils % 70.2 Lymphocytes % 7.4 L Monocytes % 11.6 H Eosinophils % 2.7 Basophils % 0.7 Nucleated Red Blood Cells % 0.3 H Neutrophils # (Manual) 12.5 H Lymphocytes # 1.3 Monocytes # 2.1 H Eosinophils # 0.5 Basophils # 0.1 Nucleated Red Blood Cells # 0.1 H Sodium Level 136 Potassium Level 3.1 L Chloride Level 100 Carbon Dioxide Level 31 Anion Gap 8 Blood Urea Nitrogen 38 H Creatinine 1.60 H Glucose Level 134 Calcium Level 8.9 Phosphorus Level 2.7 Magnesium Level 2.3 Test 06/18/17 12:02 Bedside Glucose 122 Medications Medications Current Medications Metoprolol Tartrate (Lopressor) 5 mg Q4H PRN IV HR>110 Hold SBP<110 Last administered on 04/20/17 17:36; Admin Dose 5 MG; Start 04/11/17 at 13:30 Miscellaneous Information 1 ea NOTE XX ; Start 04/11/17 at 16:30 Glucose (Glutose) 15 gm Q15M PRN PO DECREASED GLUCOSE Last administered on 05/07 03:27; Admin Dose 15 GM; Start 04/11/17 at 16:30 Glucose (Glutose) 22.5 gm Q15M PRN PO DECREASED GLUCOSE; Start 04/11/17 at 16: 30 Dextrose (D50w Syringe) 25 ml Q15M PRN IV DECREASED GLUCOSE Last administered on 04/12/17 23:56; Admin Dose 25 ML; Start 04/11/17 at 16:30 Dextrose (D50w Syringe) 50 ml Q15M PRN IV DECREASED GLUCOSE; Start 04/11/17 at 16:30 Glucagon (Glucagen) 1 mg Q15M PRN IM DECREASED GLUCOSE; Start 04/11/17 at 16:30 Glucose (Glutose) 15 gm Q15M PRN BUCCAL DECREASED GLUCOSE; Start 04/11/17 at 16 :30 Metoclopramide HCl (Reglan) 10 mg Q6 IV Last administered on 06/18/17 12:25; Admin Dose 10 MG; Start 04/12/17 at 18:00 Insulin Aspart (Novolog Insulin Pen) NOVOLOG *MILD* ALGORI... Q6H SC Last administered on 06/17/17 17:56; Admin Dose 1 UNIT; Start 04/15/17 at 00:00 IV Flush (NS 10 ml) 10 ml PRN PRN IV FLUSH LINE Last administered on 06/12/17 23:32; Admin Dose 10 ML; Start 04/15/17 at 13:00 Amiodarone HCl (Cordarone) 200 mg BID GTB Last administered on 06/18/17 08:58; Admin Dose 200 MG; Start 04/16/17 at 13:00 Citalopram Hydrobromide (Celexa) 20 mg DAILY NGT Last administered on 06/18/17 08:58; Admin Dose 20 MG; Start 04/19/17 at 09:00 Hydralazine HCl (Apresoline) 20 mg Q6H PRN IV sbp ABOVE 160 Last administered on 06/14/17 12:08; Admin Dose 20 MG; Start 04/18/17 at 18:30 Chlorhexidine Gluconate (Peridex) 15 ml BID MT Last administered on 06/18/17 08 :58; Admin Dose 15 ML; Start 04/22/17 at 21:00 Vitamin A/Vitamin D (Vitamin A & D Oint) 1 applic TID TOP Last administered on 06/18/17 12:26; Admin Dose 1 APPLIC; Start 04/22/17 at 21:00 Vitamin A/Vitamin D (Vitamin A & D Oint) 1 applic TID PRN TOP DRYNESS Last administered on 04/22/17 15:29; Admin Dose 1 APPLIC; Start 04/22/17 at 15:00 Acetaminophen/ Hydrocodone Bitart ([place] (5/325)) 1 tab Q6H GTB Last administered on 06/18/17 09:36; Admin Dose 1 TAB; Start 04/22/17 at 21:30 Diltiazem HCl 5 mg 5 mg Q1H PRN IV HEART RATE GREATER THAN 120 Last administered on 04/29/17 06:17; Admin Dose 5 MG; Start 04/29/17 at 05:00 Sodium Chloride 1,000 ml @ 0 mls/hr Q0M IV Last administered on 05/01/17 03: 00; Admin Dose 1,000 MLS/HR; Start 05/01/17 at 03:00 Sodium Chloride 1,000 ml @ 0 mls/hr Q0M IV Last administered on 05/01/17 04: 00; Admin Dose 1,000 MLS/HR; Start 05/01/17 at 03:30 Diltiazem HCl (Cardizem-D5W 125 Mg/125 ml Drip) 125 ml @ 5 mls/hr TITRATE IV Last administered on 05/02/17 19:11; Admin Dose 5 MLS/HR; Start 05/02/17 at 19: 00 Metoprolol Tartrate (Lopressor) 25 mg QID GTB Last administered on 06/18/17 12: 26; Admin Dose 25 MG; Start 05/07/17 at 09:00 Vitamin B Complex/ Vitamin C (Berocca) 1 cap DAILY PO Last administered on 08:58; Admin Dose 1 CAP; Start 05/13/17 at 09:00 Aspirin (Aspirin) 81 mg DAILY NGT Last administered on 06/18/17 08:57; Admin Dose 81 MG; Start 05/19/17 at 09:00 Lansoprazole (Prevacid) 30 mg BID@,18 GTB Last administered on 06/18/17 05:18 ; Admin Dose 30 MG; Start 05/20/17 at 18:00 Multivitamins (Multivitamin) 30 ml DAILY GTB Last administered on 06/18/17 08: 56; Admin Dose 30 ML; Start 05/24/17 at 09:00 Epoetin Perry (Epogen (Esrd)) 12,000 units TuThSa@17 SC Last administered on 06/17 17:53; Admin Dose 12,000 UNITS; Start 06/05/17 at 17:00 Levothyroxine Sodium 175 mcg 175 mcg DAILY@06 GTB Last administered on 05:18; Admin Dose 175 MCG; Start 06/16/17 at 06:00 Piperacillin Sod/ Tazobactam Sod (Zosyn 2.25gm/ 50ml (Pmx)) 50 ml @ 100 mls/hr Q8 IVPB Last administered on 06/18/17t 13:48; Admin Dose 100 MLS/HR; Start at 22:00 EMILIANO HICKS Jun 18, 2017 14:01
--- NOTE | 2017-06-18 14:38 | CONS ---
Date/Time of Note Date/Time of Note DATE: 06/18/17 TIME: 14:33 Assessment/Plan Assessment/Plan Chief Complaint/Hosp Course SUBJECTIVE DATA: The patient is awake, looks comfortable. at bedside. No fevers, Latif dc'd LABORATORY AND DIAGNOSTIC DATA: WBC today 17.8 INDWELLINGS: Right chest PermCath, trach, PEG. MICROBIOLOGY: Urine culture growing Proteus mirabilis, multidrug resistant, susceptible only to Zosyn. Abx: Zosyn PHYSICAL EXAMINATION: GENERAL: This is a wasted, well-developed elderly woman who is awake, in no distress. HEENT: Head atraumatic, normocephalic. Sclerae anicteric. Buccal mucosa dry. NECK: Supple. CHEST: Rise symmetrical. Breath sounds diminished at the bases. HEART: S1, S2. ABDOMEN: Soft, bowel sounds present. EXTREMITIES: Without cyanosis. SKIN: Positive for anasarca. ASSESSMENT: 1. Systemic inflammatory response syndrome with increased leukocytosis ? urinary retention, s/p Latif dc'd. 2. Proteus mirabilis urinary tract infection (UTI). 3. Chronic respiratory failure status post tracheostomy. 4. End-stage renal disease, hemodialysis dependent. 5. History of Clostridium difficile colitis. 6. Left upper extremity deep vein thrombosis (DVT). 7. Status post fungemia. PLAN: The patient is clinically stable and afebrile, started on Zosyn yesterday , will order bladder scan and straight cath prn, add empiric Flagyl. DW staff/ at bedside Problems: Consultation Date/Type/Reason Admit Date/Time Apr 11, 2017 at 11:28 Initial Consult Date 04/12/17 Type of Consultation: ID Referring Provider: NINA MACIEL DO Exam/Review of Systems Vital Signs Vitals Vital Signs Date Time Temp Pulse Resp B/P Pulse Ox O2 Delivery O2 Flow Rate FiO2 06/18/17 12:12 151/74 06/18/17 12:00 88 06/18/17 11:09 98.1 18 97 06/18/17 09:13 28 06/18/17 07:46 5.0 06/18/17 07:46 Aerosol T Tube Intake and Output 06/17/17 06/17/17 06/18/17 15:00 23:00 07:00 Intake Total 500 ml 810 ml 910 ml Output Total 4000 ml 250 ml Balance -3500 ml 560 ml 910 ml Results Result Diagram: 06/18/17 0652 06/18/17 0652 Results 24 hrs Laboratory Tests Test 06/17/17 17:13 06/18/17 00:23 06/18/17 05:20 06/18/17 06:52 Bedside Glucose 157 122 129 White Blood Count 17.8 #H Red Blood Count 2.95 L Hemoglobin 9.2 L Hematocrit 29.1 L Mean Corpuscular Volume 98.6 Mean Corpuscular Hemoglobin 31.2 Mean Corpuscular Hemoglobin Concent 31.6 L Red Cell Distribution Width 19.0 H Platelet Count 359 Mean Platelet Volume 9.2 Neutrophils % 70.2 Lymphocytes % 7.4 L Monocytes % 11.6 H Eosinophils % 2.7 Basophils % 0.7 Nucleated Red Blood Cells % 0.3 H Neutrophils # (Manual) 12.5 H Lymphocytes # 1.3 Monocytes # 2.1 H Eosinophils # 0.5 Basophils # 0.1 Nucleated Red Blood Cells # 0.1 H Sodium Level 136 Potassium Level 3.1 L Chloride Level 100 Carbon Dioxide Level 31 Anion Gap 8 Blood Urea Nitrogen 38 H Creatinine 1.60 H Glucose Level 134 Calcium Level 8.9 Phosphorus Level 2.7 Magnesium Level 2.3 Test 06/18/17 12:02 Bedside Glucose 122 Medications Medications Current Medications Metoprolol Tartrate (Lopressor) 5 mg Q4H PRN IV HR>110 Hold SBP<110 Last administered on 04/20/17 17:36; Admin Dose 5 MG; Start 04/11/17 at 13:30 Miscellaneous Information 1 ea NOTE XX ; Start 04/11/17 at 16:30 Glucose (Glutose) 15 gm Q15M PRN PO DECREASED GLUCOSE Last administered on 05/07 03:27; Admin Dose 15 GM; Start 04/11/17 at 16:30 Glucose (Glutose) 22.5 gm Q15M PRN PO DECREASED GLUCOSE; Start 04/11/17 at 16: 30 Dextrose (D50w Syringe) 25 ml Q15M PRN IV DECREASED GLUCOSE Last administered on 04/12/17 23:56; Admin Dose 25 ML; Start 04/11/17 at 16:30 Dextrose (D50w Syringe) 50 ml Q15M PRN IV DECREASED GLUCOSE; Start 04/11/17 at 16:30 Glucagon (Glucagen) 1 mg Q15M PRN IM DECREASED GLUCOSE; Start 04/11/17 at 16:30 Glucose (Glutose) 15 gm Q15M PRN BUCCAL DECREASED GLUCOSE; Start 04/11/17 at 16 :30 Metoclopramide HCl (Reglan) 10 mg Q6 IV Last administered on 06/18/17 12:25; Admin Dose 10 MG; Start 04/12/17 at 18:00 Insulin Aspart (Novolog Insulin Pen) NOVOLOG *MILD* ALGORI... Q6H SC Last administered on 06/17/17 17:56; Admin Dose 1 UNIT; Start 04/15/17 at 00:00 IV Flush (NS 10 ml) 10 ml PRN PRN IV FLUSH LINE Last administered on 06/12/17 23:32; Admin Dose 10 ML; Start 04/15/17 at 13:00 Amiodarone HCl (Cordarone) 200 mg BID GTB Last administered on 06/18/17 08:58; Admin Dose 200 MG; Start 04/16/17 at 13:00 Citalopram Hydrobromide (Celexa) 20 mg DAILY NGT Last administered on 06/18/17 08:58; Admin Dose 20 MG; Start 04/19/17 at 09:00 Hydralazine HCl (Apresoline) 20 mg Q6H PRN IV sbp ABOVE 160 Last administered on 06/14/17 12:08; Admin Dose 20 MG; Start 04/18/17 at 18:30 Chlorhexidine Gluconate (Peridex) 15 ml BID MT Last administered on 06/18/17 08 :58; Admin Dose 15 ML; Start 04/22/17 at 21:00 Vitamin A/Vitamin D (Vitamin A & D Oint) 1 applic TID TOP Last administered on 06/18/17 12:26; Admin Dose 1 APPLIC; Start 04/22/17 at 21:00 Vitamin A/Vitamin D (Vitamin A & D Oint) 1 applic TID PRN TOP DRYNESS Last administered on 04/22/17 15:29; Admin Dose 1 APPLIC; Start 04/22/17 at 15:00 Acetaminophen/ Hydrocodone Bitart ([place] (5/325)) 1 tab Q6H GTB Last administered on 06/18/17 09:36; Admin Dose 1 TAB; Start 04/22/17 at 21:30 Diltiazem HCl 5 mg 5 mg Q1H PRN IV HEART RATE GREATER THAN 120 Last administered on 04/29/17 06:17; Admin Dose 5 MG; Start 04/29/17 at 05:00 Sodium Chloride 1,000 ml @ 0 mls/hr Q0M IV Last administered on 05/01/17 03: 00; Admin Dose 1,000 MLS/HR; Start 05/01/17 at 03:00 Sodium Chloride 1,000 ml @ 0 mls/hr Q0M IV Last administered on 05/01/17 04: 00; Admin Dose 1,000 MLS/HR; Start 05/01/17 at 03:30 Diltiazem HCl (Cardizem-D5W 125 Mg/125 ml Drip) 125 ml @ 5 mls/hr TITRATE IV Last administered on 05/02/17 19:11; Admin Dose 5 MLS/HR; Start 05/02/17 at 19: 00 Metoprolol Tartrate (Lopressor) 25 mg QID GTB Last administered on 06/18/17 12: 26; Admin Dose 25 MG; Start 05/07/17 at 09:00 Vitamin B Complex/ Vitamin C (Berocca) 1 cap DAILY PO Last administered on 08:58; Admin Dose 1 CAP; Start 05/13/17 at 09:00 Aspirin (Aspirin) 81 mg DAILY NGT Last administered on 06/18/17 08:57; Admin Dose 81 MG; Start 05/19/17 at 09:00 Lansoprazole (Prevacid) 30 mg BID@18 GTB Last administered on 06/18/17 05:18 ; Admin Dose 30 MG; Start 05/20/17 at 18:00 Multivitamins (Multivitamin) 30 ml DAILY GTB Last administered on 06/18/17 08: 56; Admin Dose 30 ML; Start 05/24/17 at 09:00 Epoetin Perry (Epogen (Esrd)) 12,000 units TuThSa@17 SC Last administered on 06/17 17:53; Admin Dose 12,000 UNITS; Start 06/05/17 at 17:00 Levothyroxine Sodium 175 mcg 175 mcg DAILY@06 GTB Last administered on 05:18; Admin Dose 175 MCG; Start 06/16/17 at 06:00 Piperacillin Sod/ Tazobactam Sod (Zosyn 2.25gm/ 50ml (Pmx)) 50 ml @ 100 mls/hr Q8 IVPB Last administered on 06/18/17 13:48; Admin Dose 100 MLS/HR; Start at 22:00 LORETO MCKEON NP Jun 18, 2017 14:38
--- NOTE | 2017-06-18 15:06 | RADRPT ---
PROCEDURE: Chest 1 views. CLINICAL INDICATION: Shortness of breath. TECHNIQUE: AP views of the chest was obtained. COMPARISON: May 27, 2017 FINDINGS: The heart is large. Tracheostomy tube is stable and appears in grossly appropriate location. Right-s ided dialysis catheter has its tip in the expected location of the distal superior vena cava. Centra l pulmonary vascular congestion and interstitial prominence is seen in both lungs. Patchy alveolar i nfiltrates are identified throughout the right lung. Right-sided PICC line is grossly stable. [place] us structures are intact. IMPRESSION: Cardiomegaly . Central pulmonary vascular congestion and interstitial prominence in both lungs. RPTAT: AA .Jason Rizo MD, Date Time Electronically viewed and signed by .Jason Rizo MD, on 06/18/2017 15:06 .P/
--- NOTE | 2017-06-18 23:44 | PN ---
Date/Time of Note Date/Time of Note DATE: 06/18/17 TIME: 23:34 Assessment/Plan Lines/Catheters IV Catheter Type (from [facility]): PERMACATH Mims in Place (from [facility]): No (discontinued per order) Assessment/Plan Chief Complaint/Hosp Course 1. Cholelithiasis: Tolerating tube feeds; no abdominal pain/discomfort/bloating ; +bowel function -No surgical intervention required at this time 2. Pneumonia: Recurrent +sputum cultures; appears comfortable, no fevers, s/p abx -pulmonary toilet -wean as tolerated 3. Vent dependent respiratory failure: 2/2 aspiration PNA+ CHF;reintubated and extubated, coded 04/21 and 05/01; off vent, on tpiece -as above 4. KEYONNA: now with HD with + urine output; arranging for outpatient HD; improving -judicious fluid management -avoid nephrotoxic agents 5. Uncontrolled Afib: s/p amiodarone drip, on oral amiodarone; episodes of Afib ; currently SR -medical optimization 6. Leukocytosis with lactic acidosis: 2/2 pneumonia +/- steroids vs.fungemia vs other (urine, repeat blood cultures negative);up again today -per ID 7. Macrocytic anemia: chronic vs. dilutional vs. acute bleed vs. b12/folate deficiency; hh stable -monitor -Transfuse as needed 8. Electrolyte imbalance: (hyponatremia, hypokalemia); improved -electrolyte optimization 9. CHF: BNP elevated -judicious fluid management -medical optimization 10. Adrenal Insufficiency -solucortef 11. Hypothyroidism -on synthroid 12. Hypoalbuminemia: 2/2 malnutrition +/- inflammation; decreased; tolerating tf ; -nutrition optimization -as above 13. Eyelid swelling probably 2nd dependent edema. ? infection (doubt) -defer to primary team Patient seen and examined in collaboration with Dr. Justus Antonio. Thank you Problems: Subjective 24 Hr Interval Summary Awake and responsive. Comfortable on t piece. No SOB, congested cough, cp, palpitations, metzger, dizziness, n/v/d/dysuria or abdominal discomfort. Tolerating tf. + bowel function. Exam/Review of Systems Vital Signs Vitals Vital Signs Date Time Temp Pulse Resp B/P Pulse Ox O2 Delivery O2 Flow Rate FiO2 06/18/17 21:20 169/80 06/18/17 20:49 89 9/6/17 20:18 97 5.0 28 06/18/17 20:13 98.2 18 06/18/17 20:11 Aerosol T Tube Intake and Output 06/17/17 06/17/17 06/18/17 15:00 23:00 07:00 Intake Total 500 ml 810 ml 910 ml Output Total 4000 ml 250 ml Balance -3500 ml 560 ml 910 ml Exam Free Text/Dictation Constitutional: fully awake, alert Head: atraumatic, normocephalic Eyes: PERRL, edema bilateral upper eyelids without erythema, nl sclera; ENMT: No mucosa pink and moist (pink and moist with healed perioral lesions), tooth missing, mild facial swelling-improved Neck: non-tender, supple, tracheostomy on t-piece Respiratory: diminished, min sputum Cardiovascular: nl pulses, regular rate and rhythm, Gastrointestinal: non distended, GT tubes site no erythema, no drainage, non tenderness, bowel sounds x 4 quads, soft; tf ongoing Genitourinary - Female: nl external genitalia; +uop per mims with yellow output with sediments Musculoskeletal: nl extremities to inspection, min edema Extremities: normal pulses, bilateral upper/lower extremity edema 2+; improved extremity edema Neurological: responsive Skin: nl turgor, No rash or lesions Lymph: nl lymph node Results Result Diagram: 06/18/17 0652 06/18/17 0652 ADDISON FREGOSO NP Jun 18, 2017 23:44
[2017-06-19] VITALS (23 sets, daily range): BP systolic 89–171; BP diastolic 45–87; PULSE 89–97; RESP 16–19
[2017-06-19] MEDS: ALBUTEROL/IPRATROPIUM (NEB) 3 ML AMP HHN SCH ×4 (01:00→20:33)
[2017-06-19] MEDS: HYDROCODONE/APAP (5/325) TAB GTB SCH ×4 (04:05→21:30)
[2017-06-19] MEDS: METOCLOPRAMIDE 10 MG INJ IV SCH ×3 (05:49→17:26)
[2017-06-19] MEDS: PIPER-TAZO 2.25 GM (PMX) 50 ML IVPB SCH (05:49)
[2017-06-19] MEDS: LEVOTHYROXINE 175 MCG TAB GTB SCH (05:49)
[2017-06-19] MEDS: LANSOPRAZOLE 30 MG CAP GTB SCH ×2 (05:49→17:28)
[2017-06-19] MEDS: INSULIN ASPART [NOVOLOG] 3 ML PEN SC SCH ×3 (05:50→17:26)
[2017-06-19 07:19] LABS: ABNORMAL IP MESSAGE 1; BASOPHIL # 0.1 10^3/ul (0.0-0.1); BASOPHILS % 0.5 % (0.0-2.0); EOSINOPHILS # 0.6 10^3/ul (0.0-0.5); EOSINOPHILS % 3.3 % (0.0-7.0); HEMOGLOBIN 9.2 g/dl (12.0-16.0); LYMPHOCYTES # 1.5 10^3/ul (0.8-2.9); LYMPHOCYTES % 7.9 % (15.0-51.0); MEAN CORPUSCULAR HEMOGLOBIN 31.1 pg (29.0-33.0); MEAN CORPUSCULAR HGB CONC 31.7 g/dl (32.0-37.0); MEAN PLATELET VOLUME 9.1 fl (7.4-10.4); MONOCYTE # 1.8 10^3/ul (0.3-0.9); MONOCYTES % 9.9 % (0.0-11.0); NEUTROPHILS % 72.4 % (39.0-77.0); NUCLEATED RED BLOOD CELLS # 0.1 10^3/ul (0.0-0.0); NUCLEATED RED BLOOD CELLS% 0.4 /100WBC (0.0-0.0); PLATELET COUNT 363 10^3/UL (140-415); RED BLOOD COUNT 2.96 10^6/ul (4.20-5.40); RED CELL DISTRIBUTION WIDTH 18.6 % (11.5-14.5); WHITE BLOOD COUNT 18.4 10^3/ul (4.8-10.8)
[2017-06-19] MEDS ORDERED: ALBUMIN HUMAN 25% 100 ML IV ONE (07:30)
[2017-06-19] MEDS: AMIODARONE 200 MG TAB GTB SCH ×3 (07:36→21:00)
[2017-06-19] MEDS: METOPROLOL 25 MG TAB GTB SCH ×4 (07:37→21:00)
[2017-06-19 07:42] LABS: POSITIVE DIFF @See below
[2017-06-19 07:47] LABS: CALCIUM 9.1 mg/dl (8.4-10.2); CREATININE 1.84 mg/dl (0.44-1.00); MAGNESIUM 2.4 mg/dl (1.7-2.5); PHOSPHORUS 2.8 mg/dl (2.5-4.9); POTASSIUM 3.8 mmol/L (3.5-5.1)
--- NOTE | 2017-06-19 07:51 | CONS ---
Date/Time of Note Date/Time of Note DATE: 06/19/17 TIME: 07:49 Consult Date/Type/Reason Admit Date/Time Apr 11, 2017 at 11:28 Initial Consult Date 04/12/17 Type of Consultation: cardiology Ordering Provider: NINA MACIEL DO Subjective CARDIOLOGY FOLLOW UP NOTE: D/W staff and . rhythm was reviewed. pt remains in NSR. no afib overnight no reports of any chest pain or pressure or palpitations. pt is still s/p trach on O2 now. no reported active bleeding on HD now. Objective: General: s/p trach on O2 now. HEENT: NC/AT. . oropharynx with multiple lesions. . NECK: NO JVD. no stridor. s/p trach on O2 CV: RRR. systolic ejection murmur; no gallop or rubs. PULM: + mild rhonchi. no wheezes. GI: SOFT, NT, ND, no rebound or guarding s/p PEG Extremity: 1-2+ B/L LE edema. no clubbing. neuro: awake and alert. follows command appropriately . Psych: calm rectal: deferred Derm: no active bleeding chest: s/p right chest HD access in place Objective Vital Signs Date Time Temp Pulse Resp B/P Pulse Ox O2 Delivery O2 Flow Rate FiO2 06/19/17 04:49 96 06/19/17 04:11 98.3 19 135/84 98 06/19/17 01:00 Aerosol 28 T Tube 06/18/17 20:18 5.0 Intake and Output 06/18/17 06/18/17 06/19/17 15:00 23:00 07:00 Intake Total 50 ml 810 ml 760 ml Balance 50 ml 810 ml 760 ml Results/Medications Result Diagram: 06/19/17 0651 06/18/17 0652 Results 24 hrs Laboratory Tests Test 06/18/17 12:02 06/18/17 17:31 06/18/17 23:38 06/19/17 05:43 Bedside Glucose 122 133 129 103 Test 06/19/17 06:51 White Blood Count 18.4 H Red Blood Count 2.96 L Hemoglobin 9.2 L Hematocrit 29.0 L Mean Corpuscular Volume 98.0 Mean Corpuscular Hemoglobin 31.1 Mean Corpuscular Hemoglobin Concent 31.7 L Red Cell Distribution Width 18.6 H Platelet Count 363 Mean Platelet Volume 9.1 Neutrophils % 72.4 Lymphocytes % 7.9 L Monocytes % 9.9 Eosinophils % 3.3 Basophils % 0.5 Nucleated Red Blood Cells % 0.4 H Neutrophils # (Manual) 13.3 H Lymphocytes # 1.5 Monocytes # 1.8 H Eosinophils # 0.6 H Basophils # 0.1 Nucleated Red Blood Cells # 0.1 H Medications Current Medications Metoprolol Tartrate (Lopressor) 5 mg Q4H PRN IV HR>110 Hold SBP<110 Last administered on 04/20/17 17:36; Admin Dose 5 MG; Start 04/11/17 at 13:30 Miscellaneous Information 1 ea NOTE XX ; Start 04/11/17 at 16:30 Glucose (Glutose) 15 gm Q15M PRN PO DECREASED GLUCOSE Last administered on 05/07 03:27; Admin Dose 15 GM; Start 04/11/17 at 16:30 Glucose (Glutose) 22.5 gm Q15M PRN PO DECREASED GLUCOSE; Start 04/11/17 at 16: 30 Dextrose (D50w Syringe) 25 ml Q15M PRN IV DECREASED GLUCOSE Last administered on 04/12/17 23:56; Admin Dose 25 ML; Start 04/11/17 at 16:30 Dextrose (D50w Syringe) 50 ml Q15M PRN IV DECREASED GLUCOSE; Start 04/11/17 at 16:30 Glucagon (Glucagen) 1 mg Q15M PRN IM DECREASED GLUCOSE; Start 04/11/17 at 16:30 Glucose (Glutose) 15 gm Q15M PRN BUCCAL DECREASED GLUCOSE; Start 04/11/17 at 16 :30 Metoclopramide HCl (Reglan) 10 mg Q6 IV Last administered on 06/19/17 05:49; Admin Dose 10 MG; Start 04/12/17 at 18:00 Insulin Aspart (Novolog Insulin Pen) NOVOLOG *MILD* ALGORI... Q6H SC Last administered on 06/17/17 17:56; Admin Dose 1 UNIT; Start 04/15/17 at 00:00 IV Flush (NS 10 ml) 10 ml PRN PRN IV FLUSH LINE Last administered on 06/12/17 23:32; Admin Dose 10 ML; Start 04/15/17 at 13:00 Amiodarone HCl (Cordarone) 200 mg BID GTB Last administered on 06/18/17 20:15; Admin Dose 200 MG; Start 04/16/17 at 13:00 Citalopram Hydrobromide (Celexa) 20 mg DAILY NGT Last administered on 06/18/17 08:58; Admin Dose 20 MG; Start 04/19/17 at 09:00 Hydralazine HCl (Apresoline) 20 mg Q6H PRN IV sbp ABOVE 160 Last administered on 06/14/17 12:08; Admin Dose 20 MG; Start 04/18/17 at 18:30 Chlorhexidine Gluconate (Peridex) 15 ml BID MT Last administered on 06/18/17 20 :16; Admin Dose 15 ML; Start 04/22/17 at 21:00 Vitamin A/Vitamin D (Vitamin A & D Oint) 1 applic TID TOP Last administered on 06/18/17 20:16; Admin Dose 1 APPLIC; Start 04/22/17 at 21:00 Vitamin A/Vitamin D (Vitamin A & D Oint) 1 applic TID PRN TOP DRYNESS Last administered on 04/22/17 15:29; Admin Dose 1 APPLIC; Start 04/22/17 at 15:00 Acetaminophen/ Hydrocodone Bitart ([place] (5/325)) 1 tab Q6H GTB Last administered on 06/19/17 04:05; Admin Dose 1 TAB; Start 04/22/17 at 21:30 Diltiazem HCl 5 mg 5 mg Q1H PRN IV HEART RATE GREATER THAN 120 Last administered on 04/29/17 06:17; Admin Dose 5 MG; Start 04/29/17 at 05:00 Sodium Chloride 1,000 ml @ 0 mls/hr Q0M IV Last administered on 05/01/17 03: 00; Admin Dose 1,000 MLS/HR; Start 05/01/17 at 03:00 Sodium Chloride 1,000 ml @ 0 mls/hr Q0M IV Last administered on 05/01/17 04: 00; Admin Dose 1,000 MLS/HR; Start 05/01/17 at 03:30 Diltiazem HCl (Cardizem-D5W 125 Mg/125 ml Drip) 125 ml @ 5 mls/hr TITRATE IV Last administered on 05/02/17 19:11; Admin Dose 5 MLS/HR; Start 05/02/17 at 19: 00 Metoprolol Tartrate (Lopressor) 25 mg QID GTB Last administered on 06/18/17 20: 15; Admin Dose 25 MG; Start 05/07/17 at 09:00 Vitamin B Complex/ Vitamin C (Berocca) 1 cap DAILY PO Last administered on 08:58; Admin Dose 1 CAP; Start 05/13/17 at 09:00 Aspirin (Aspirin) 81 mg DAILY NGT Last administered on 06/18/17 08:57; Admin Dose 81 MG; Start 05/19/17 at 09:00 Lansoprazole (Prevacid) 30 mg BID@06,18 GTB Last administered on 06/19/17 05:49 ; Admin Dose 30 MG; Start 05/20/17 at 18:00 Multivitamins (Multivitamin) 30 ml DAILY GTB Last administered on 06/18/17 08: 56; Admin Dose 30 ML; Start 05/24/17 at 09:00 Epoetin Perry (Epogen (Esrd)) 12,000 units TuThSa@17 SC Last administered on 06/17 17:53; Admin Dose 12,000 UNITS; Start 06/05/17 at 17:00 Levothyroxine Sodium 175 mcg 175 mcg DAILY@06 GTB Last administered on 05:49; Admin Dose 175 MCG; Start 06/16/17 at 06:00 Piperacillin Sod/ Tazobactam Sod 50 ml @ 100 mls/hr Q8 IVPB Last administered on 06/19/17 05:49; Admin Dose 100 MLS/HR; Start 06/17/17 at 22:00 Albumin Human (Albumin Human 25%) 100 ml @ 100 mls/hr ONCE ONCE IV ; Start 06/19/17 at 07:30; Stop 06/19/17 at 08:29 Assessment/Plan Chief Complaint/Hosp Course 1. acute on chronic hypoxemic respiratory failure: 2. S/P NSTEMI: due to demand ischemia. 3. CHF/ fluid overload: due to diastolic heart failure and renal failure 4. moderate 5. Arrhythmia and P afib, frequent PVC: currently in NSR. 6. ANEMIA: s/p multiple transfusion 7. s/p pneumonia, . 8. s/p sepsis and shock: BP is stable now. 9. Anasarca 10. s/p cardiopulm arrest due to resp failure 11. renal failure : ON HD now. Rec: cont resp care. weaning as tolerated. correct lytes prn. CONT betablocker as tolerated. . cont thyroid supplement . cont tele monitoring HD as per renal s/p multiple transfusions. . cont low dose ASA 81 mg only due to recurrent anemia. THANK YOU. Problems: FRANCISCO BLACKWOOD MD Jun 19, 2017 07:50
[2017-06-19] MEDS: MULTIVITAMINS 30 ML CUP GTB SCH (09:12)
[2017-06-19] MEDS: CHLORHEXIDINE GLUCONATE 15 ML UD CUP MT SCH ×2 (09:12→21:00)
[2017-06-19] MEDS: VITAMIN A & D 5 GM OINT PACKET TOP SCH ×3 (09:14→22:54)
[2017-06-19] MEDS: CITALOPRAM 20 MG TAB NGT SCH (09:15)
[2017-06-19] MEDS: VITAMIN B COMPLEX/VIT C CAP PO SCH (09:15)
[2017-06-19] MEDS: ASPIRIN 81 MG TAB NGT SCH (09:15)
--- NOTE | 2017-06-19 11:55 | PN ---
Date/Time of Note Date/Time of Note DATE: 06/19/17 TIME: 11:52 Assessment/Plan Lines/Catheters IV Catheter Type (from [facility]): PERMACATH Mims in Place (from [facility]): No Assessment/Plan Chief Complaint/Hosp Course 1. Cholelithiasis: Tolerating tube feeds; no abdominal pain/discomfort/bloating ; +bowel function -No surgical intervention required at this time 2. Pneumonia: Recurrent +sputum cultures; appears comfortable, no fevers, s/p abx -pulmonary toilet -wean as tolerated 3. Vent dependent respiratory failure: 2/2 aspiration PNA+ CHF;reintubated and extubated, coded 04/21 and 05/01; off vent, on tpiece -as above 4. KEYONNA: now with HD with + urine output; outpatient HD -judicious fluid management -avoid nephrotoxic agents 5. Uncontrolled Afib: s/p amiodarone drip, on oral amiodarone; episodes of Afib ; currently SR -medical optimization 6. Leukocytosis with lactic acidosis: 2/2 pneumonia +/- steroids vs.fungemia vs other (urine, repeat blood cultures negative) -per ID 7. Macrocytic anemia: chronic vs. dilutional vs. acute bleed vs. b12/folate deficiency; hh stable -monitor -Transfuse as needed 8. Electrolyte imbalance: (hyponatremia, hypokalemia); improved -electrolyte optimization 9. CHF: BNP elevated -judicious fluid management -medical optimization 10. Adrenal Insufficiency -solucortef 11. Hypothyroidism -on synthroid 12. Hypoalbuminemia: 2/2 malnutrition +/- inflammation; decreased; tolerating tf ; -nutrition optimization -as above Patient seen and examined in collaboration with Dr. Justus Antonio. Thank you Problems: Subjective 24 Hr Interval Summary Awake and conversant. Feels well. Continues on Tpiece. No sob or congested on cough. Less swelling. No fevers, chills, cp, palpitations, n/v/d/dysuria. Tolerating tf. +bowel function. Exam/Review of Systems Vital Signs Vitals Vital Signs Date Time Temp Pulse Resp B/P Pulse Ox O2 Delivery O2 Flow Rate FiO2 06/19/17 09:51 28 06/19/17 08:52 89 06/19/17 08:40 98 Aerosol T Tube 06/19/17 08:20 19 06/19/17 08:02 95/45 06/19/17 07:59 97.9 06/18/17 20:18 5.0 Intake and Output 06/18/17 06/18/17 06/19/17 15:00 23:00 07:00 Intake Total 50 ml 810 ml 760 ml Balance 50 ml 810 ml 760 ml Exam Free Text/Dictation Constitutional: fully awake, alert Head: atraumatic, normocephalic Eyes: PERRL, edema bilateral upper eyelids without erythema, nl sclera; ENMT: No mucosa pink and moist (pink and moist with healed perioral lesions), tooth missing, mild facial swelling-improved Neck: non-tender, supple, tracheostomy on t-piece Respiratory: diminished, min sputum Cardiovascular: nl pulses, regular rate and rhythm, gen swelling improved Gastrointestinal: non distended, GT tubes site no erythema, no drainage, non tenderness, bowel sounds x 4 quads, soft; tf ongoing Genitourinary - Female: nl external genitalia; +uop per mims with yellow output with sediments Musculoskeletal: nl extremities to inspection, min edema Extremities: normal pulses, Neurological: responsive Skin: nl turgor, No rash or lesions Lymph: nl lymph node Results Result Diagram: 06/19/17 0651 06/19/17 0651 ADDISON FREGOSO NP Jun 19, 2017 11:55
--- NOTE | 2017-06-19 12:10 | CONS ---
Date/Time of Note Date/Time of Note DATE: 06/19/17 TIME: 12:06 Assessment/Plan Assessment/Plan Additional Assessment/Plan Chest x-ray was reviewed from yesterday which is showing mild vascular congestion. Assessment and recommendations; 1. Patient admitted with chronic respiratory failure with bilateral pneumonia with significant radiological improvement. 2. Persistent leukocytosis, etiology is unclear. Patient started on Zosyn. 3. Chronic renal failure, on hemodialysis. 4. Patient weaned off from invasive mechanical ventilation doing very well on T piece. 5. Anemia. 6. Severe generalized deconditioning. 7. History of redo tracheostomy 2. 8. Remote history of glossal cancer. 9. History of cardiac arrhythmia. 10. COPD. Continue current supportive care. Obtain a speech therapy evaluation. I did have a detailed discussion the patient's at bedside and answered all his questions. Consultation Date/Type/Reason Admit Date/Time Apr 11, 2017 at 11:28 Initial Consult Date 05/01/17 Type of Consultation: Pulmonary Referring Provider: NINA MACIEL DO 24 HR Interval Summary Free Text/Dictation Patient condition stable. Patient was tried on Passy-Baden valve but she could not able to talk. Patient denies any shortness of breath, chest pain. General exam; elderly woman, awake and alert. Currently in no distress. Exam/Review of Systems Vital Signs Vitals Vital Signs Date Time Temp Pulse Resp B/P Pulse Ox O2 Delivery O2 Flow Rate FiO2 06/19/17 11:57 97.9 87 16 131/82 97 06/19/17 11:53 Aerosol 28 T Tube 06/18/17 20:18 5.0 Intake and Output 06/18/17 06/18/17 06/19/17 14:59 22:59 06:59 Intake Total 50 ml 810 ml 760 ml Balance 50 ml 810 ml 760 ml Exam HEENT exam; supple neck, no JVD. No lymphadenopathy tracheostomy in place insertion site is clean. Patient has fair dentition. Chest exam; diminished but clear breath sounds. S1-S2 audible, no murmurs. Regular rhythm. Abdomen exam; soft, no organomegaly. G-tube in place. Bowel sounds audible. Extremity exam; no peripheral edema. STAND GRINDER exam; there is no focal motor deficit patient however still exhibiting profound generalized muscular weakness. Results Result Diagram: 06/19/17 0651 06/19/17 0651 Results 24 hrs Laboratory Tests Test 06/18/17 17:31 06/18/17 23:38 06/19/17 05:43 06/19/17 06:51 Bedside Glucose 133 129 103 White Blood Count 18.4 H Red Blood Count 2.96 L Hemoglobin 9.2 L Hematocrit 29.0 L Mean Corpuscular Volume 98.0 Mean Corpuscular Hemoglobin 31.1 Mean Corpuscular Hemoglobin Concent 31.7 L Red Cell Distribution Width 18.6 H Platelet Count 363 Mean Platelet Volume 9.1 Neutrophils % 72.4 Lymphocytes % 7.9 L Monocytes % 9.9 Eosinophils % 3.3 Basophils % 0.5 Nucleated Red Blood Cells % 0.4 H Neutrophils # (Manual) 13.3 H Lymphocytes # 1.5 Monocytes # 1.8 H Eosinophils # 0.6 H Basophils # 0.1 Nucleated Red Blood Cells # 0.1 H Sodium Level 134 L Potassium Level 3.8 Chloride Level 98 Carbon Dioxide Level 30 Anion Gap 10 Blood Urea Nitrogen 46 H Creatinine 1.84 H Glucose Level 95 Calcium Level 9.1 Phosphorus Level 2.8 Magnesium Level 2.4 Test 06/19/17 11:47 Bedside Glucose 175 Medications Medications Current Medications Metoprolol Tartrate (Lopressor) 5 mg Q4H PRN IV HR>110 Hold SBP<110 Last administered on 04/20/17 17:36; Admin Dose 5 MG; Start 04/11/17 at 13:30 Miscellaneous Information 1 ea NOTE XX ; Start 04/11/17 at 16:30 Glucose (Glutose) 15 gm Q15M PRN PO DECREASED GLUCOSE Last administered on 05/07 03:27; Admin Dose 15 GM; Start 04/11/17 at 16:30 Glucose (Glutose) 22.5 gm Q15M PRN PO DECREASED GLUCOSE; Start 04/11/17 at 16: 30 Dextrose (D50w Syringe) 25 ml Q15M PRN IV DECREASED GLUCOSE Last administered on 04/12/17 23:56; Admin Dose 25 ML; Start 04/11/17 at 16:30 Dextrose (D50w Syringe) 50 ml Q15M PRN IV DECREASED GLUCOSE; Start 04/11/17 at 16:30 Glucagon (Glucagen) 1 mg Q15M PRN IM DECREASED GLUCOSE; Start 04/11/17 at 16:30 Glucose (Glutose) 15 gm Q15M PRN BUCCAL DECREASED GLUCOSE; Start 04/11/17 at 16 :30 Metoclopramide HCl (Reglan) 10 mg Q6 IV Last administered on 06/19/17 11:48; Admin Dose 10 MG; Start 04/12/17 at 18:00 Insulin Aspart (Novolog Insulin Pen) NOVOLOG *MILD* ALGORI... Q6H SC Last administered on 06/19/17 11:52; Admin Dose 1 UNIT; Start 04/15/17 at 00:00 IV Flush (NS 10 ml) 10 ml PRN PRN IV FLUSH LINE Last administered on 06/12/17 23:32; Admin Dose 10 ML; Start 04/15/17 at 13:00 Amiodarone HCl (Cordarone) 200 mg BID GTB Last administered on 06/18/17 20:15; Admin Dose 200 MG; Start 04/16/17 at 13:00 Citalopram Hydrobromide (Celexa) 20 mg DAILY NGT Last administered on 06/19/17 09:15; Admin Dose 20 MG; Start 04/19/17 at 09:00 Hydralazine HCl (Apresoline) 20 mg Q6H PRN IV sbp ABOVE 160 Last administered on 06/14/17 12:08; Admin Dose 20 MG; Start 04/18/17 at 18:30 Chlorhexidine Gluconate (Peridex) 15 ml BID MT Last administered on 06/19/17 09 :12; Admin Dose 15 ML; Start 04/22/17 at 21:00 Vitamin A/Vitamin D (Vitamin A & D Oint) 1 applic TID TOP Last administered on 06/19/17 09:14; Admin Dose 1 APPLIC; Start 04/22/17 at 21:00 Vitamin A/Vitamin D (Vitamin A & D Oint) 1 applic TID PRN TOP DRYNESS Last administered on 04/22/17 15:29; Admin Dose 1 APPLIC; Start 04/22/17 at 15:00 Acetaminophen/ Hydrocodone Bitart ([place] (5/325)) 1 tab Q6H GTB Last administered on 06/19/17 10:16; Admin Dose 1 TAB; Start 04/22/17 at 21:30 Diltiazem HCl 5 mg 5 mg Q1H PRN IV HEART RATE GREATER THAN 120 Last administered on 04/29/17 06:17; Admin Dose 5 MG; Start 04/29/17 at 05:00 Sodium Chloride 1,000 ml @ 0 mls/hr Q0M IV Last administered on 05/01/17 03: 00; Admin Dose 1,000 MLS/HR; Start 05/01/17 at 03:00 Sodium Chloride 1,000 ml @ 0 mls/hr Q0M IV Last administered on 05/01/17 04: 00; Admin Dose 1,000 MLS/HR; Start 05/01/17 at 03:30 Diltiazem HCl (Cardizem-D5W 125 Mg/125 ml Drip) 125 ml @ 5 mls/hr TITRATE IV Last administered on 05/02/17 19:11; Admin Dose 5 MLS/HR; Start 05/02/17 at 19: 00 Metoprolol Tartrate (Lopressor) 25 mg QID GTB Last administered on 06/18/17 20: 15; Admin Dose 25 MG; Start 05/07/17 at 09:00 Vitamin B Complex/ Vitamin C (Berocca) 1 cap DAILY PO Last administered on 09:15; Admin Dose 1 CAP; Start 05/13/17 at 09:00 Aspirin (Aspirin) 81 mg DAILY NGT Last administered on 06/19/17 09:15; Admin Dose 81 MG; Start 05/19/17 at 09:00 Lansoprazole (Prevacid) 30 mg BID@06,18 GTB Last administered on 06/19/17 05:49 ; Admin Dose 30 MG; Start 05/20/17 at 18:00 Multivitamins (Multivitamin) 30 ml DAILY GTB Last administered on 06/19/17 09: 12; Admin Dose 30 ML; Start 05/24/17 at 09:00 Epoetin Perry (Epogen (Esrd)) 12,000 units TuThSa@17 SC Last administered on 06/17 17:53; Admin Dose 12,000 UNITS; Start 06/05/17 at 17:00 Levothyroxine Sodium 175 mcg 175 mcg DAILY@06 GTB Last administered on 05:49; Admin Dose 175 MCG; Start 06/16/17 at 06:00 Piperacillin Sod/ Tazobactam Sod (Zosyn 2.25gm/ 50ml (Pmx)) 50 ml @ 100 mls/hr Q8 IVPB Last administered on 06/19/17t 05:49; Admin Dose 100 MLS/HR; Start at 22:00 Vancomycin HCl (Vancomycin Oral Syringe) 250 mg Q6 GTB ; Start 06/19/17 at 13:00 EMILIANO HICKS Jun 19, 2017 12:10
[2017-06-19] MEDS: VANCOMYCIN HCL 250 MG/5ML POSYG GTB SCH ×3 (12:41→23:43)
[2017-06-19] MEDS: VORICONAZOLE 200 MG TAB PO SCH ×2 (14:11→21:00)
--- NOTE | 2017-06-19 17:09 | CONS ---
Date/Time of Note Date/Time of Note DATE: 06/19/17 TIME: 17:06 Assessment/Plan Assessment/Plan Chief Complaint/Hosp Course SUBJECTIVE DATA: The patient is awake, looks comfortable. at bedside. No fevers, Latif dc'd LABORATORY AND DIAGNOSTIC DATA: WBC today 17.8 INDWELLINGS: Right chest PermCath, trach, PEG, PICC Abx: Vend, PO Vanco PHYSICAL EXAMINATION: GENERAL: This is a wasted, well-developed elderly woman who is awake, in no distress. HEENT: Head atraumatic, normocephalic. Sclerae anicteric. Buccal mucosa dry. NECK: Supple. CHEST: Rise symmetrical. Breath sounds diminished at the bases. HEART: S1, S2. ABDOMEN: Soft, bowel sounds present. EXTREMITIES: Without cyanosis. SKIN: Positive for anasarca. ASSESSMENT: 1. Systemic inflammatory response syndrome with increased leukocytosis 2 to C dif 2. Proteus mirabilis urinary tract infection (UTI)==> treated. 3. C dif colitis 4. Funguria 3. Chronic respiratory failure status post tracheostomy. 4. End-stage renal disease, hemodialysis dependent. 5. History of Clostridium difficile colitis. 6. Left upper extremity deep vein thrombosis (DVT). 7. Status post fungemia. PLAN: Remains stable, continue present care, keep on Vfend for 5 days, continue PO Vanco for 2 weeks, pending dc OLIVIA staff/ at bedside Problems: Consultation Date/Type/Reason Admit Date/Time Apr 11, 2017 at 11:28 Initial Consult Date 04/12/17 Type of Consultation: ID Referring Provider: NINA MACIEL DO Exam/Review of Systems Vital Signs Vitals Vital Signs Date Time Temp Pulse Resp B/P Pulse Ox O2 Delivery O2 Flow Rate FiO2 06/19/17 16:55 92 06/19/17 15:37 98.2 16 129/79 97 06/19/17 13:24 28 06/19/17 11:53 Aerosol T Tube 06/18/17 20:18 5.0 Intake and Output 06/18/17 06/18/17 06/19/17 15:00 23:00 07:00 Intake Total 50 ml 810 ml 760 ml Balance 50 ml 810 ml 760 ml Results Result Diagram: 06/19/17 0651 06/19/17 0651 Results 24 hrs Laboratory Tests Test 06/18/17 17:31 06/18/17 23:38 06/19/17 05:43 06/19/17 06:51 Bedside Glucose 133 129 103 White Blood Count 18.4 H Red Blood Count 2.96 L Hemoglobin 9.2 L Hematocrit 29.0 L Mean Corpuscular Volume 98.0 Mean Corpuscular Hemoglobin 31.1 Mean Corpuscular Hemoglobin Concent 31.7 L Red Cell Distribution Width 18.6 H Platelet Count 363 Mean Platelet Volume 9.1 Neutrophils % 72.4 Lymphocytes % 7.9 L Monocytes % 9.9 Eosinophils % 3.3 Basophils % 0.5 Nucleated Red Blood Cells % 0.4 H Neutrophils # (Manual) 13.3 H Lymphocytes # 1.5 Monocytes # 1.8 H Eosinophils # 0.6 H Basophils # 0.1 Nucleated Red Blood Cells # 0.1 H Sodium Level 134 L Potassium Level 3.8 Chloride Level 98 Carbon Dioxide Level 30 Anion Gap 10 Blood Urea Nitrogen 46 H Creatinine 1.84 H Glucose Level 95 Calcium Level 9.1 Phosphorus Level 2.8 Magnesium Level 2.4 Test 06/19/17 11:47 Bedside Glucose 175 Medications Medications Current Medications Metoprolol Tartrate (Lopressor) 5 mg Q4H PRN IV HR>110 Hold SBP<110 Last administered on 04/20/17 17:36; Admin Dose 5 MG; Start 04/11/17 at 13:30 Miscellaneous Information 1 ea NOTE XX ; Start 04/11/17 at 16:30 Glucose (Glutose) 15 gm Q15M PRN PO DECREASED GLUCOSE Last administered on 05/07 03:27; Admin Dose 15 GM; Start 04/11/17 at 16:30 Glucose (Glutose) 22.5 gm Q15M PRN PO DECREASED GLUCOSE; Start 04/11/17 at 16: 30 Dextrose (D50w Syringe) 25 ml Q15M PRN IV DECREASED GLUCOSE Last administered on 04/12/17 23:56; Admin Dose 25 ML; Start 04/11/17 at 16:30 Dextrose (D50w Syringe) 50 ml Q15M PRN IV DECREASED GLUCOSE; Start 04/11/17 at 16:30 Glucagon (Glucagen) 1 mg Q15M PRN IM DECREASED GLUCOSE; Start 04/11/17 at 16:30 Glucose (Glutose) 15 gm Q15M PRN BUCCAL DECREASED GLUCOSE; Start 04/11/17 at 16 :30 Metoclopramide HCl (Reglan) 10 mg Q6 IV Last administered on 06/19/17 11:48; Admin Dose 10 MG; Start 04/12/17 at 18:00 Insulin Aspart (Novolog Insulin Pen) NOVOLOG *MILD* ALGORI... Q6H SC Last administered on 06/19/17 11:52; Admin Dose 1 UNIT; Start 04/15/17 at 00:00 IV Flush (NS 10 ml) 10 ml PRN PRN IV FLUSH LINE Last administered on 06/12/17 23:32; Admin Dose 10 ML; Start 04/15/17 at 13:00 Amiodarone HCl (Cordarone) 200 mg BID GTB Last administered on 06/19/17 12:41; Admin Dose 200 MG; Start 04/16/17 at 13:00 Citalopram Hydrobromide (Celexa) 20 mg DAILY NGT Last administered on 06/19/17 09:15; Admin Dose 20 MG; Start 04/19/17 at 09:00 Hydralazine HCl (Apresoline) 20 mg Q6H PRN IV sbp ABOVE 160 Last administered on 06/14/17 12:08; Admin Dose 20 MG; Start 04/18/17 at 18:30 Chlorhexidine Gluconate (Peridex) 15 ml BID MT Last administered on 06/19/17 09 :12; Admin Dose 15 ML; Start 04/22/17 at 21:00 Vitamin A/Vitamin D (Vitamin A & D Oint) 1 applic TID TOP Last administered on 06/19/17 12:41; Admin Dose 1 APPLIC; Start 04/22/17 at 21:00 Vitamin A/Vitamin D (Vitamin A & D Oint) 1 applic TID PRN TOP DRYNESS Last administered on 04/22/17 15:29; Admin Dose 1 APPLIC; Start 04/22/17 at 15:00 Acetaminophen/ Hydrocodone Bitart ([place] (5/325)) 1 tab Q6H GTB Last administered on 06/19/17 15:47; Admin Dose 1 TAB; Start 04/22/17 at 21:30 Diltiazem HCl 5 mg 5 mg Q1H PRN IV HEART RATE GREATER THAN 120 Last administered on 04/29/17 06:17; Admin Dose 5 MG; Start 04/29/17 at 05:00 Sodium Chloride 1,000 ml @ 0 mls/hr Q0M IV Last administered on 05/01/17 03: 00; Admin Dose 1,000 MLS/HR; Start 05/01/17 at 03:00 Sodium Chloride 1,000 ml @ 0 mls/hr Q0M IV Last administered on 05/01/17 04: 00; Admin Dose 1,000 MLS/HR; Start 05/01/17 at 03:30 Diltiazem HCl (Cardizem-D5W 125 Mg/125 ml Drip) 125 ml @ 5 mls/hr TITRATE IV Last administered on 05/02/17 19:11; Admin Dose 5 MLS/HR; Start 05/02/17 at 19: 00 Metoprolol Tartrate (Lopressor) 25 mg QID GTB Last administered on 06/19/17 12: 41; Admin Dose 25 MG; Start 05/07/17 at 09:00 Vitamin B Complex/ Vitamin C (Berocca) 1 cap DAILY PO Last administered on 09:15; Admin Dose 1 CAP; Start 05/13/17 at 09:00 Aspirin (Aspirin) 81 mg DAILY NGT Last administered on 06/19/17 09:15; Admin Dose 81 MG; Start 05/19/17 at 09:00 Lansoprazole (Prevacid) 30 mg BID@,18 GTB Last administered on 06/19/17 05:49 ; Admin Dose 30 MG; Start 05/20/17 at 18:00 Multivitamins (Multivitamin) 30 ml DAILY GTB Last administered on 06/19/17 09: 12; Admin Dose 30 ML; Start 05/24/17 at 09:00 Epoetin Perry (Epogen (Esrd)) 12,000 units TuThSa@17 SC Last administered on 06/17 17:53; Admin Dose 12,000 UNITS; Start 06/05/17 at 17:00 Levothyroxine Sodium (Synthroid) 175 mcg DAILY@06 GTB Last administered on 05:49; Admin Dose 175 MCG; Start 06/16/17 at 06:00 Vancomycin HCl (Vancomycin Oral Syringe) 250 mg Q6 GTB Last administered on 06/19 12:41; Admin Dose 250 MG; Start 06/19/17 at 13:00 Voriconazole (Vfend) 200 mg BID PO Last administered on 06/19/17 14:11; Admin Dose 200 MG; Start 06/19/17 at 13:30 LORETO MCKEON NP Jun 19, 2017 17:08
[2017-06-19] MEDS: EPOETIN 4000 UNITS/1 ML INJ (ESRD) SC SCH (17:21)
[2017-06-19] MEDS ORDERED: DEXTROSE 5%-0.45% NACL 1,000 ML IV SCH (21:00)
[2017-06-20] VITALS (13 sets, daily range): BP systolic 122–192; BP diastolic 60–84; PULSE 87–99; RESP 16–18
[2017-06-20] MEDS: ALBUTEROL/IPRATROPIUM (NEB) 3 ML AMP HHN SCH ×4 (01:52→20:25)
[2017-06-20] MEDS: METOCLOPRAMIDE 10 MG INJ IV SCH ×4 (02:06→17:59)
[2017-06-20] MEDS ORDERED: HYDROmorphONE 1 MG/ML SYG IV PRN (02:30)
[2017-06-20] MEDS: HYDROCODONE/APAP (5/325) TAB GTB SCH ×4 (03:11→22:02)
[2017-06-20] MEDS: hydrALAzine 20 MG INJ IV PRN (03:42)
[2017-06-20] MEDS: INSULIN ASPART [NOVOLOG] 3 ML PEN SC SCH ×4 (06:00→18:00)
[2017-06-20] MEDS: LANSOPRAZOLE 30 MG CAP GTB SCH ×2 (06:00→17:59)
[2017-06-20] MEDS: VANCOMYCIN HCL 250 MG/5ML POSYG GTB SCH ×2 (06:00→12:00)
[2017-06-20] MEDS: LEVOTHYROXINE 175 MCG TAB GTB SCH (06:00)
[2017-06-20] MEDS: VORICONAZOLE 200 MG TAB PO SCH (09:00)
[2017-06-20] MEDS: MULTIVITAMINS 30 ML CUP GTB SCH (09:00)
[2017-06-20] MEDS: VITAMIN B COMPLEX/VIT C CAP PO SCH (09:00)
[2017-06-20] MEDS: AMIODARONE 200 MG TAB GTB SCH ×2 (09:00→22:01)
[2017-06-20] MEDS: VITAMIN A & D 5 GM OINT PACKET TOP SCH ×3 (09:00→22:02)
[2017-06-20] MEDS: ASPIRIN 81 MG TAB NGT SCH (09:00)
[2017-06-20] MEDS: CHLORHEXIDINE GLUCONATE 15 ML UD CUP MT SCH ×2 (09:00→21:59)
[2017-06-20] MEDS: METOPROLOL 25 MG TAB GTB SCH ×4 (09:00→22:01)
[2017-06-20] MEDS: CITALOPRAM 20 MG TAB NGT SCH (09:00)
[2017-06-20] MEDS: DEXTROSE 5%-0.9% NACL 1,000 ML IV SCH (09:30)
--- NOTE | 2017-06-20 10:04 | PN ---
DATE: 06/20/2017 SUBJECTIVE DATA: The patient did not transfer to [place] yesterday as her G-tube was accidentally dislodged. The patient is pending G-tube placement today. No other events noted. OBJECTIVE DATA: VITAL SIGNS: Blood pressure is 127/60, respirations 18, pulse 94, temperature 98.0 HEENT: Head is normocephalic. NECK: Supple. HEART: Regular rate. LUNGS: Showed diminished breath sounds at the base. ABDOMEN: Soft, nontender to palpation. No rebound or guarding. The patient G-tube was removed. There is dressing over ostomy. EXTREMITIES: Negative for clubbing or cyanosis. Positive edema. DERMATOLOGIC: Clean. No rashes. MUSCULOSKELETAL: No joint effusion. NEUROLOGIC: No change in exam. ASSESSMENT AND PLAN: 1. Ventilatory-dependent respiratory failure. Ventilator settings reviewed. ABGs reviewed. Continue to monitor. 2. End-stage renal disease. Plan for hemodialysis tomorrow. 3. Clostridium difficile colitis. The patient is on oral vancomycin. Continue. 4. Volume overload. Continue ultrafiltration dialysis. 5. Anemia. Monitor hemoglobin and hematocrit levels. Continue Epogen. 6. Sepsis. The patient is completing antibiotic course. 7. Encephalopathy. Improving. 8. Hypothyroidism. Continue Synthroid. 9. Dysphagia. The patient is status dislodgement of gastrostomy tube. Gastroenterology was consulted for gastrostomy tube placement. We will resume tube feeding once gastrostomy tube is placed. 10. History of thyroid cancer with tracheomalacia. 11. Status post gastrointestinal bleed. 12. History of adrenal insufficiency. 13. Gastrointestinal and deep venous thrombosis prophylaxis. Dictated By: Abebe Valderrama DO /marquita/blanca /Document#: [id number]
--- NOTE | 2017-06-20 12:17 | PN ---
Date/Time of Note Date/Time of Note DATE: 06/20/17 TIME: 12:08 Assessment/Plan Lines/Catheters IV Catheter Type (from [facility]): perm cath Latif in Place (from [facility]): No Assessment/Plan Chief Complaint/Hosp Course 1. Cholelithiasis: Tolerated tube feeds (no gtube currently); no abdominal pain/ discomfort/bloating; +bowel function -No surgical intervention required at this time 2. Pneumonia: Recurrent +sputum cultures; appears comfortable, no fevers, s/p abx -pulmonary toilet -wean as tolerated 3. Vent dependent respiratory failure: 2/2 aspiration PNA+ CHF;reintubated and extubated, coded 04/21 and 05/01; off vent, on tpiece -as above 4. KEYONNA: now with HD with + urine output; outpatient HD -judicious fluid management -avoid nephrotoxic agents 5. Uncontrolled Afib: s/p amiodarone drip, on oral amiodarone; episodes of Afib ; currently SR -medical optimization 6. Leukocytosis with lactic acidosis: 2/2 pneumonia +/- steroids vs.fungemia vs other (urine, repeat blood cultures negative) -per ID 7. Macrocytic anemia: chronic vs. dilutional vs. acute bleed vs. b12/folate deficiency; hh stable -monitor -Transfuse as needed 8. Electrolyte imbalance: (hyponatremia, hypokalemia); improved -electrolyte optimization 9. CHF: BNP elevated -judicious fluid management -medical optimization 10. Adrenal Insufficiency -solucortef 11. Hypothyroidism -on synthroid 12. Hypoalbuminemia: 2/2 malnutrition +/- inflammation; decreased; was tolerating tf; -nutrition optimization -as above 13. Gtube malfunction: to be replaced by GI Patient seen and examined in collaboration with Dr. Justus Antonio. Thank you Problems: Subjective 24 Hr Interval Summary During discharge yesterday, gtube reportedly fell out. Plan for gtube replacement by GI today. Comfortable on tpiece. No c/o pain, abdominal discomfort, metzger, dizziness, n/v/d/dysuria. +uop. Exam/Review of Systems Vital Signs Vitals Vital Signs Date Time Temp Pulse Resp B/P Pulse Ox O2 Delivery O2 Flow Rate FiO2 06/21/17 08:57 99 5.0 28 06/21/17 08:55 85 20 Aerosol T Tube 06/21/17 07:54 97.9 118/69 Intake and Output 06/20/17 06/20/17 06/21/17 14:59 22:59 06:59 Intake Total 560 ml 1360 ml Balance 560 ml 1360 ml Exam Free Text/Dictation Constitutional: fully awake, alert Head: atraumatic, normocephalic Eyes: PERRL, edema bilateral upper eyelids without erythema, some swelling, nl sclera; ENMT: No mucosa pink and moist (pink and moist with healed perioral lesions), tooth missing, mild facial swelling-improved Neck: non-tender, supple, tracheostomy on t-piece Respiratory: diminished, min sputum Cardiovascular: nl pulses, regular rate and rhythm, gen swelling improved Gastrointestinal: non distended, GT tube stoma erythema, no drainage, non tenderness, bowel sounds x 4 quads, soft; Genitourinary - Female: nl external genitalia; +uop Musculoskeletal: nl extremities to inspection, min edema Extremities: normal pulses, Neurological: responsive Skin: nl turgor, No rash or lesions Lymph: nl lymph node Results Result Diagram: 06/21/1761606/21/17616 ADDISON FREGOSO NP Jun 20, 2017 12:17
[2017-06-20] MEDS: MUPIROCIN 2% 22 GM OINT TOP SCH ×2 (13:11→21:59)
--- NOTE | 2017-06-20 13:22 | CONS ---
Date/Time of Note Date/Time of Note DATE: 06/20/17 TIME: 13:19 Assessment/Plan Assessment/Plan Additional Assessment/Plan Assessment recommendations; 1. Patient admitted with sepsis due to pneumonia with interval improvement. 2. Chronic respiratory failure, patient weaned down to T-piece now. 3. Status post redo tracheostomy 2. 4. Remote history of glossal cancer. 5. Anemia. 6. Severe generalized deconditioning. 7. End-stage renal disease, on hemodialysis. 8. Inadvertent removal of G-tube by the patient status post replacement. Continue current supportive care. Patient awaiting discharge. I did have a detailed discussion with the patient's again at bedside and answered all his questions. Consultation Date/Type/Reason Admit Date/Time Apr 11, 2017 at 11:28 Initial Consult Date 05/01/17 Type of Consultation: Pulmonary Referring Provider: NINA MACIEL DO 24 HR Interval Summary Free Text/Dictation Condition stable. Doing very well on tracheal T piece. Denies any shortness of breath. General exam; elderly woman, on tracheostomy attached to T-piece. Awake and alert. Currently in no distress. Exam/Review of Systems Vital Signs Vitals Vital Signs Date Time Temp Pulse Resp B/P Pulse Ox O2 Delivery O2 Flow Rate FiO2 06/20/17 12:29 96 06/20/17 11:50 18 97 Aerosol 5.0 28 T Tube 06/20/17 11:12 98.1 155/70 Intake and Output 06/19/17 06/19/17 06/20/17 15:00 23:00 07:00 Intake Total 300 ml 910 ml 350 ml Output Total 3300 ml Balance -3000 ml 910 ml 350 ml Exam HEENT exam; supple neck, no JVD. No lymphadenopathy. Midline trachea. No thyromegaly. Pharynx is clear. Patient has fair dentition. Tracheostomy in place. Insertion site is clean. Chest exam; diminished but clear breath sound. S1-S2 audible, no murmurs. Regular rhythm. Abdomen exam; soft, nontender. No organomegaly. G-tube in place. Bowel sounds audible. Extremity exam; trace edema. More pronounced in right lower extremity. HISTOLOGIC AIDE exam; no focal motor deficit. Results Result Diagram: 06/19/17 0651 06/19/17 0651 Results 24 hrs Laboratory Tests Test 06/19/17 17:25 9/8/17 02:23 06/20/17 06:33 Bedside Glucose 119 101 105 Medications Medications Current Medications Metoprolol Tartrate (Lopressor) 5 mg Q4H PRN IV HR>110 Hold SBP<110 Last administered on 04/20/17 17:36; Admin Dose 5 MG; Start 04/11/17 at 13:30 Miscellaneous Information 1 ea NOTE XX ; Start 04/11/17 at 16:30 Glucose (Glutose) 15 gm Q15M PRN PO DECREASED GLUCOSE Last administered on 05/07 03:27; Admin Dose 15 GM; Start 04/11/17 at 16:30 Glucose (Glutose) 22.5 gm Q15M PRN PO DECREASED GLUCOSE; Start 04/11/17 at 16: 30 Dextrose (D50w Syringe) 25 ml Q15M PRN IV DECREASED GLUCOSE Last administered on 04/12/17 23:56; Admin Dose 25 ML; Start 04/11/17 at 16:30 Dextrose (D50w Syringe) 50 ml Q15M PRN IV DECREASED GLUCOSE; Start 04/11/17 at 16:30 Glucagon (Glucagen) 1 mg Q15M PRN IM DECREASED GLUCOSE; Start 04/11/17 at 16:30 Glucose (Glutose) 15 gm Q15M PRN BUCCAL DECREASED GLUCOSE; Start 04/11/17 at 16 :30 Metoclopramide HCl (Reglan) 10 mg Q6 IV Last administered on 06/20/17 12:00; Admin Dose 10 MG; Start 04/12/17 at 18:00 Insulin Aspart (Novolog Insulin Pen) NOVOLOG *MILD* ALGORI... Q6H SC Last administered on 06/19/17 11:52; Admin Dose 1 UNIT; Start 04/15/17 at 00:00 IV Flush (NS 10 ml) 10 ml PRN PRN IV FLUSH LINE Last administered on 06/12/17 23:32; Admin Dose 10 ML; Start 04/15/17 at 13:00 Amiodarone HCl (Cordarone) 200 mg BID GTB Last administered on 06/19/17 12:41; Admin Dose 200 MG; Start 04/16/17 at 13:00 Citalopram Hydrobromide (Celexa) 20 mg DAILY NGT Last administered on 06/19/17 09:15; Admin Dose 20 MG; Start 04/19/17 at 09:00 Hydralazine HCl (Apresoline) 20 mg Q6H PRN IV sbp ABOVE 160 Last administered on 06/20/17 03:42; Admin Dose 20 MG; Start 04/18/17 at 18:30 Chlorhexidine Gluconate (Peridex) 15 ml BID MT Last administered on 06/19/17 21 :00; Admin Dose 15 ML; Start 04/22/17 at 21:00 Vitamin A/Vitamin D (Vitamin A & D Oint) 1 applic TID TOP Last administered on 06/20/17 13:12; Admin Dose 1 APPLIC; Start 04/22/17 at 21:00 Vitamin A/Vitamin D (Vitamin A & D Oint) 1 applic TID PRN TOP DRYNESS Last administered on 04/22/17 15:29; Admin Dose 1 APPLIC; Start 04/22/17 at 15:00 Acetaminophen/ Hydrocodone Bitart ([place] (5/325)) 1 tab Q6H GTB Last administered on 06/19/17 15:47; Admin Dose 1 TAB; Start 04/22/17 at 21:30 Diltiazem HCl 5 mg 5 mg Q1H PRN IV HEART RATE GREATER THAN 120 Last administered on 04/29/17 06:17; Admin Dose 5 MG; Start 04/29/17 at 05:00 Sodium Chloride 1,000 ml @ 0 mls/hr Q0M IV Last administered on 05/01/17 03: 00; Admin Dose 1,000 MLS/HR; Start 05/01/17 at 03:00 Sodium Chloride 1,000 ml @ 0 mls/hr Q0M IV Last administered on 05/01/17 04: 00; Admin Dose 1,000 MLS/HR; Start 05/01/17 at 03:30 Diltiazem HCl (Cardizem-D5W 125 Mg/125 ml Drip) 125 ml @ 5 mls/hr TITRATE IV Last administered on 05/02/17 19:11; Admin Dose 5 MLS/HR; Start 05/02/17 at 19: 00 Metoprolol Tartrate (Lopressor) 25 mg QID GTB Last administered on 06/20/17 13: 12; Admin Dose 25 MG; Start 05/07/17 at 09:00 Vitamin B Complex/ Vitamin C (Berocca) 1 cap DAILY PO Last administered on 09:15; Admin Dose 1 CAP; Start 05/13/17 at 09:00 Aspirin (Aspirin) 81 mg DAILY NGT Last administered on 06/19/17 09:15; Admin Dose 81 MG; Start 05/19/17 at 09:00 Lansoprazole (Prevacid) 30 mg BID@06,18 GTB Last administered on 06/19/17 17:28 ; Admin Dose 30 MG; Start 05/20/17 at 18:00 Multivitamins (Multivitamin) 30 ml DAILY GTB Last administered on 06/19/17 09: 12; Admin Dose 30 ML; Start 05/24/17 at 09:00 Epoetin Perry (Epogen (Esrd)) 12,000 units TuThSa@17 SC Last administered on 06/19 17:21; Admin Dose 12,000 UNITS; Start 06/05/17 at 17:00 Levothyroxine Sodium (Synthroid) 175 mcg DAILY@06 GTB Last administered on 05:49; Admin Dose 175 MCG; Start 06/16/17 at 06:00 Vancomycin HCl (Vancomycin Oral Syringe) 250 mg Q6 GTB Last administered on 06/20 12:00; Admin Dose 250 MG; Start 06/19/17 at 13:00 Voriconazole (Vfend) 200 mg BID PO Last administered on 06/19/17 14:11; Admin Dose 200 MG; Start 06/19/17 at 13:30 Hydromorphone HCl 0.5 mg 0.5 mg Q4H PRN IV PAIN; Start 06/20/17 at 02:30 Dextrose/Sodium Chloride (D5-NS) 1,000 ml @ 50 mls/hr Q20H IV Last administered on 06/20/17 09:30; Admin Dose 50 MLS/HR; Start 06/20/17 at 09:30 Mupirocin (Bactroban) 1 applic BID TOP Last administered on 06/20/17 13:11; Admin Dose 1 APPLIC; Start 06/20/17 at 13:00 EMILIANO HICKS Jun 20, 2017 13:22
[2017-06-20] MEDS ORDERED: MEROPENEM 2 GM in SOD CHLORIDE 0.9% 100 ML IVPB SCH (16:00)
[2017-06-20] MEDS ORDERED: VANCOMYCIN IV PER PHARMACY XX SCH (16:00)
--- NOTE | 2017-06-20 16:09 | RADRPT ---
PROCEDURE: US Soft Tissue CLINICAL INDICATION: r/o abdominal wall abscess. Pain TECHNIQUE: Ultrasound images were obtained superior to the patient's G tube, and reviewed on a PAC S workstation. COMPARISON: None available FINDINGS: Ultrasound images in the region of interest above the patient's G tube demonstrate no evidence for a bnormal fluid collection or discrete mass. IMPRESSION: No abnormal fluid collection to suggest abscess formation. RPTAT: HBST .Fernando Abbott MD, MD Date Time Electronically viewed and signed by .Fernando Abbott MD, on 06/20/2017 16:09 .T/
--- NOTE | 2017-06-20 17:22 | CONS ---
Date/Time of Note Date/Time of Note DATE: 06/20/17 TIME: 17:18 Assessment/Plan Assessment/Plan Chief Complaint/Hosp Course Patient is a 66 year old female with a history of diabetes mellitus hypertension chronic vent dependency, history of tongue cancer status post resection has a G-tube. GI consult was called in for GI bleeding anemia requiring blood transfusion. Her other problems include aspiration pneumonia, atrial fibrillation well controlled. Patient also had a sepsis and fungemia successfully treated. Her G-tube aspirate shows burgundy colored fluid. Patient is off all the pressor support. She is on a steroid for adrenal insufficiency Problems: Additional Assessment/Plan ASSESSMENT AND PLAN: 1. Ventilatory-dependent respiratory failure. 2. Dislodgment of G-tube 3. end-stage renal disease. 3. Clostridium difficile colitis. 5. Anemia. Monitor hemoglobin and hematocrit levels. Continue Epogen. 6. Sepsis. The patient is completing antibiotic course. 7. Encephalopathy. Improving. 8. Hypothyroidism. Continue Synthroid. 9. Dysphagia. 10. History of thyroid cancer with tracheomalacia. 11. Status post gastrointestinal bleed. 12. History of adrenal insufficiency. Plan 20 [place] G-tube successfully inserted does a good retrograde flow of bile juice confirming its position in the stomach Patient also had induration surrounding the G-tube extending by about 2 cm circumferentially, subcutaneous abscess cannot be ruled out Surgical follow-up to evaluate G-tube site Bactroban to G-tube site twice daily Consultation Date/Type/Reason Admit Date/Time Apr 11, 2017 at 11:28 Initial Consult Date 05/01/17 Type of Consultation: Pulmonary Referring Provider: NINA MACIEL DO 24 HR Interval Summary Free Text/Dictation Dislodgment of G-tube Exam/Review of Systems Vital Signs Vitals Vital Signs Date Time Temp Pulse Resp B/P Pulse Ox O2 Delivery O2 Flow Rate FiO2 06/20/17 17:03 99 06/20/17 15:16 98.1 18 192/84 94 06/20/17 14:56 5.0 28 06/20/17 14:56 Aerosol T Tube Intake and Output 06/19/17 06/19/17 06/20/17 15:00 23:00 07:00 Intake Total 300 ml 910 ml 350 ml Output Total 3300 ml Balance -3000 ml 910 ml 350 ml Exam Constitutional: alert Head: atraumatic, normocephalic Eyes: EOMI, PERRL, nl conjunctiva, nl lids, nl sclera Neck: non-tender, supple Respiratory: other (And is on vent) Cardiovascular: nl pulses, regular rate and rhythm Gastrointestinal: nl liver, spleen, non-tender, other (G-tube dislodged opening appeared to be obliterated), soft Musculoskeletal: nl extremities to inspection, nl gait and stance Extremities: normal pulses Neurological: MEDICAL 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 SCIENTIST II-XII intact, nl mental status, nl speech, nl strength Results Result Diagram: 06/19/1751 06/19/17 0651 Results 24 hrs Laboratory Tests Test 06/19/17 17:25 06/20/17 02:23 06/20/17 06:33 06/20/17 13:09 Bedside Glucose 119 101 105 105 Medications Medications Current Medications Metoprolol Tartrate (Lopressor) 5 mg Q4H PRN IV HR>110 Hold SBP<110 Last administered on 04/20/17 17:36; Admin Dose 5 MG; Start 04/11/17 at 13:30 Miscellaneous Information 1 ea NOTE XX ; Start 04/11/17 at 16:30 Glucose (Glutose) 15 gm Q15M PRN PO DECREASED GLUCOSE Last administered on 05/07 03:27; Admin Dose 15 GM; Start 04/11/17 at 16:30 Glucose (Glutose) 22.5 gm Q15M PRN PO DECREASED GLUCOSE; Start 04/11/17 at 16: 30 Dextrose (D50w Syringe) 25 ml Q15M PRN IV DECREASED GLUCOSE Last administered on 04/12/17 23:56; Admin Dose 25 ML; Start 04/11/17 at 16:30 Dextrose (D50w Syringe) 50 ml Q15M PRN IV DECREASED GLUCOSE; Start 04/11/17 at 16:30 Glucagon (Glucagen) 1 mg Q15M PRN IM DECREASED GLUCOSE; Start 04/11/17 at 16:30 Glucose (Glutose) 15 gm Q15M PRN BUCCAL DECREASED GLUCOSE; Start 04/11/17 at 16 :30 Metoclopramide HCl (Reglan) 10 mg Q6 IV Last administered on 06/20/17 12:00; Admin Dose 10 MG; Start 04/12/17 at 18:00 Insulin Aspart (Novolog Insulin Pen) NOVOLOG *MILD* ALGORI... Q6H SC Last administered on 06/19/17 11:52; Admin Dose 1 UNIT; Start 04/15/17 at 00:00 IV Flush (NS 10 ml) 10 ml PRN PRN IV FLUSH LINE Last administered on 06/12/17 23:32; Admin Dose 10 ML; Start 04/15/17 at 13:00 Amiodarone HCl (Cordarone) 200 mg BID GTB Last administered on 06/19/17 12:41; Admin Dose 200 MG; Start 04/16/17 at 13:00 Citalopram Hydrobromide (Celexa) 20 mg DAILY NGT Last administered on 06/19/17 09:15; Admin Dose 20 MG; Start 04/19/17 at 09:00 Hydralazine HCl (Apresoline) 20 mg Q6H PRN IV sbp ABOVE 160 Last administered on 06/20/17 03:42; Admin Dose 20 MG; Start 04/18/17 at 18:30 Chlorhexidine Gluconate (Peridex) 15 ml BID MT Last administered on 06/19/17 21 :00; Admin Dose 15 ML; Start 04/22/17 at 21:00 Vitamin A/Vitamin D (Vitamin A & D Oint) 1 applic TID TOP Last administered on 06/20/17 13:12; Admin Dose 1 APPLIC; Start 04/22/17 at 21:00 Vitamin A/Vitamin D (Vitamin A & D Oint) 1 applic TID PRN TOP DRYNESS Last administered on 04/22/17 15:29; Admin Dose 1 APPLIC; Start 04/22/17 at 15:00 Acetaminophen/ Hydrocodone Bitart ([place] (5/325)) 1 tab Q6H GTB Last administered on 06/20/17 15:53; Admin Dose 1 TAB; Start 04/22/17 at 21:30 Diltiazem HCl 5 mg 5 mg Q1H PRN IV HEART RATE GREATER THAN 120 Last administered on 04/29/17 06:17; Admin Dose 5 MG; Start 04/29/17 at 05:00 Sodium Chloride 1,000 ml @ 0 mls/hr Q0M IV Last administered on 05/01/17 03: 00; Admin Dose 1,000 MLS/HR; Start 05/01/17 at 03:00 Sodium Chloride 1,000 ml @ 0 mls/hr Q0M IV Last administered on 05/01/17 04: 00; Admin Dose 1,000 MLS/HR; Start 05/01/17 at 03:30 Diltiazem HCl (Cardizem-D5W 125 Mg/125 ml Drip) 125 ml @ 5 mls/hr TITRATE IV Last administered on 05/02/17 19:11; Admin Dose 5 MLS/HR; Start 05/02/17 at 19: 00 Metoprolol Tartrate (Lopressor) 25 mg QID GTB Last administered on 06/20/17 13: 12; Admin Dose 25 MG; Start 05/07/17 at 09:00 Vitamin B Complex/ Vitamin C (Berocca) 1 cap DAILY PO Last administered on 09:15; Admin Dose 1 CAP; Start 05/13/17 at 09:00 Aspirin (Aspirin) 81 mg DAILY NGT Last administered on 06/19/17 09:15; Admin Dose 81 MG; Start 05/19/17 at 09:00 Lansoprazole (Prevacid) 30 mg BID@06,18 GTB Last administered on 06/19/17 17:28 ; Admin Dose 30 MG; Start 05/20/17 at 18:00 Multivitamins (Multivitamin) 30 ml DAILY GTB Last administered on 06/19/17 09: 12; Admin Dose 30 ML; Start 05/24/17 at 09:00 Epoetin Perry (Epogen (Esrd)) 12,000 units TuThSa@17 SC Last administered on 06/19 17:21; Admin Dose 12,000 UNITS; Start 06/05/17 at 17:00 Levothyroxine Sodium (Synthroid) 175 mcg DAILY@06 GTB Last administered on 05:49; Admin Dose 175 MCG; Start 06/16/17 at 06:00 Hydromorphone HCl 0.5 mg 0.5 mg Q4H PRN IV PAIN; Start 06/20/17 at 02:30 Dextrose/Sodium Chloride (D5-NS) 1,000 ml @ 50 mls/hr Q20H IV Last administered on 06/20/17 09:30; Admin Dose 50 MLS/HR; Start 06/20/17 at 09:30 Mupirocin 1 applic 1 applic BID TOP Last administered on 06/20/17 13:11; Admin Dose 1 APPLIC; Start 06/20/17 at 13:00 Metronidazole 100 ml @ 100 mls/hr Q8 IVPB ; Start 06/20/17 at 22:00 Caspofungin 50 mg/ Sodium Chloride 250 ml @ 250 mls/hr Q24H IVPB ; Start at 18:00 Caspofungin 70 mg/ Sodium Chloride 250 ml @ 250 mls/hr ONCE ONCE IVPB Last administered on 06/20/17 17:07; Admin Dose 250 MLS/HR; Start 06/20/17 at 18:00; Stop 06/20/17 at 18:59 Meropenem/Sodium Chloride 50 ml @ 100 mls/hr Q24H IVPB ; Start 06/20/17 at 18:00 Vancomycin HCl/ Sodium Chloride (Vancocin/NS) 250 ml @ 83.333 mls/ hr ONCE ONCE IVPB ; Start 06/20/17 at 20:00; Stop 06/20/17 at 22:59 ALYSSA THOMPSON MD Jun 20, 2017 17:22
[2017-06-20] MEDS ORDERED: CASPOFUNGIN 70 MG in SOD CHLORIDE 0.9% 250 ML IVPB ONE (18:00)
--- NOTE | 2017-06-20 18:10 | CONS ---
Date/Time of Note Date/Time of Note DATE: 06/20/17 TIME: 18:09 Consult Date/Type/Reason Admit Date/Time Apr 11, 2017 at 11:28 Initial Consult Date 04/12/17 Type of Consultation: CARDIOLOGY Ordering Provider: NINA MACIEL DO Subjective CARDIOLOGY FOLLOW UP NOTE: D/W staff and rhythm was reviewed. pt remains in NSR. no afib overnight no reports of any chest pain or pressure or palpitations. pt is still s/p trach on O2 now. off of vent at the moment no reported active bleeding Objective: General: s/p trach on O2 now. HEENT: NC/AT. . oropharynx with multiple lesions. . NECK: NO JVD. no stridor. s/p trach on O2 CV: RRR. systolic ejection murmur; no gallop or rubs. PULM: + mild rhonchi. no wheezes. GI: SOFT, NT, ND, no rebound or guarding s/p PEG Extremity: 1-2+ B/L LE edema. no clubbing. neuro: awake and alert. follows command appropriately . Psych: calm rectal: deferred Derm: no active bleeding chest: s/p right chest HD access in place Objective Vital Signs Date Time Temp Pulse Resp B/P Pulse Ox O2 Delivery O2 Flow Rate FiO2 06/20/17 17:03 99 06/20/17 15:16 98.1 18 192/84 94 06/20/17 14:56 5.0 28 06/20/17 14:56 Aerosol T Tube Intake and Output 06/19/17 06/19/17 06/20/17 15:00 23:00 07:00 Intake Total 300 ml 910 ml 350 ml Output Total 3300 ml Balance -3000 ml 910 ml 350 ml Results/Medications Result Diagram: 06/19/17 0651 06/19/17 0651 Results 24 hrs Laboratory Tests Test 06/20/17 02:23 06/20/17 06:33 06/20/17 13:09 Bedside Glucose 101 105 105 Medications Current Medications Metoprolol Tartrate (Lopressor) 5 mg Q4H PRN IV HR>110 Hold SBP<110 Last administered on 04/20/17t 17:36; Admin Dose 5 MG; Start 04/11/17 at 13:30 Miscellaneous Information 1 ea NOTE XX ; Start 04/11/17 at 16:30 Glucose (Glutose) 15 gm Q15M PRN PO DECREASED GLUCOSE Last administered on 05/07 03:27; Admin Dose 15 GM; Start 04/11/17 at 16:30 Glucose (Glutose) 22.5 gm Q15M PRN PO DECREASED GLUCOSE; Start 04/11/17 at 16: 30 Dextrose (D50w Syringe) 25 ml Q15M PRN IV DECREASED GLUCOSE Last administered on 04/12/17 23:56; Admin Dose 25 ML; Start 04/11/17 at 16:30 Dextrose (D50w Syringe) 50 ml Q15M PRN IV DECREASED GLUCOSE; Start 04/11/17 at 16:30 Glucagon (Glucagen) 1 mg Q15M PRN IM DECREASED GLUCOSE; Start 04/11/17 at 16:30 Glucose (Glutose) 15 gm Q15M PRN BUCCAL DECREASED GLUCOSE; Start 04/11/17 at 16 :30 Metoclopramide HCl (Reglan) 10 mg Q6 IV Last administered on 06/20/17 17:59; Admin Dose 10 MG; Start 04/12/17 at 18:00 Insulin Aspart (Novolog Insulin Pen) NOVOLOG *MILD* ALGORI... Q6H SC Last administered on 06/19/17 11:52; Admin Dose 1 UNIT; Start 04/15/17 at 00:00 IV Flush (NS 10 ml) 10 ml PRN PRN IV FLUSH LINE Last administered on 06/12/17 23:32; Admin Dose 10 ML; Start 04/15/17 at 13:00 Amiodarone HCl (Cordarone) 200 mg BID GTB Last administered on 06/19/17 12:41; Admin Dose 200 MG; Start 04/16/17 at 13:00 Citalopram Hydrobromide (Celexa) 20 mg DAILY NGT Last administered on 06/19/17 09:15; Admin Dose 20 MG; Start 04/19/17 at 09:00 Hydralazine HCl (Apresoline) 20 mg Q6H PRN IV sbp ABOVE 160 Last administered on 06/20/17 03:42; Admin Dose 20 MG; Start 04/18/17 at 18:30 Chlorhexidine Gluconate (Peridex) 15 ml BID MT Last administered on 06/19/17 21 :00; Admin Dose 15 ML; Start 04/22/17 at 21:00 Vitamin A/Vitamin D (Vitamin A & D Oint) 1 applic TID TOP Last administered on 06/20/17 13:12; Admin Dose 1 APPLIC; Start 04/22/17 at 21:00 Vitamin A/Vitamin D (Vitamin A & D Oint) 1 applic TID PRN TOP DRYNESS Last administered on 04/22/17 15:29; Admin Dose 1 APPLIC; Start 04/22/17 at 15:00 Acetaminophen/ Hydrocodone Bitart ([place] (5/325)) 1 tab Q6H GTB Last administered on 06/20/17 15:53; Admin Dose 1 TAB; Start 04/22/17 at 21:30 Diltiazem HCl 5 mg 5 mg Q1H PRN IV HEART RATE GREATER THAN 120 Last administered on 04/29/17 06:17; Admin Dose 5 MG; Start 04/29/17 at 05:00 Sodium Chloride 1,000 ml @ 0 mls/hr Q0M IV Last administered on 05/01/17 03: 00; Admin Dose 1,000 MLS/HR; Start 05/01/17 at 03:00 Sodium Chloride 1,000 ml @ 0 mls/hr Q0M IV Last administered on 05/01/17 04: 00; Admin Dose 1,000 MLS/HR; Start 05/01/17 at 03:30 Diltiazem HCl (Cardizem-D5W 125 Mg/125 ml Drip) 125 ml @ 5 mls/hr TITRATE IV Last administered on 05/02/17 19:11; Admin Dose 5 MLS/HR; Start 05/02/17 at 19: 00 Metoprolol Tartrate (Lopressor) 25 mg QID GTB Last administered on 06/20/17 17: 59; Admin Dose 25 MG; Start 05/07/17 at 09:00 Vitamin B Complex/ Vitamin C (Berocca) 1 cap DAILY PO Last administered on 09:15; Admin Dose 1 CAP; Start 05/13/17 at 09:00 Aspirin (Aspirin) 81 mg DAILY NGT Last administered on 06/19/17 09:15; Admin Dose 81 MG; Start 05/19/17 at 09:00 Lansoprazole (Prevacid) 30 mg BID@06,18 GTB Last administered on 06/20/17 17:59 ; Admin Dose 30 MG; Start 05/20/17 at 18:00 Multivitamins (Multivitamin) 30 ml DAILY GTB Last administered on 06/19/17 09: 12; Admin Dose 30 ML; Start 05/24/17 at 09:00 Epoetin Perry (Epogen (Esrd)) 12,000 units TuThSa@17 SC Last administered on 06/19 17:21; Admin Dose 12,000 UNITS; Start 06/05/17 at 17:00 Levothyroxine Sodium (Synthroid) 175 mcg DAILY@06 GTB Last administered on 05:49; Admin Dose 175 MCG; Start 06/16/17 at 06:00 Hydromorphone HCl 0.5 mg 0.5 mg Q4H PRN IV PAIN; Start 06/20/17 at 02:30 Dextrose/Sodium Chloride (D5-NS) 1,000 ml @ 50 mls/hr Q20H IV Last administered on 06/20/17 09:30; Admin Dose 50 MLS/HR; Start 06/20/17 at 09:30 Mupirocin 1 applic 1 applic BID TOP Last administered on 06/20/17 13:11; Admin Dose 1 APPLIC; Start 06/20/17 at 13:00 Metronidazole 100 ml @ 100 mls/hr Q8 IVPB ; Start 06/20/17 at 22:00 Caspofungin 50 mg/ Sodium Chloride 250 ml @ 250 mls/hr Q24H IVPB ; Start at 18:00 Caspofungin 70 mg/ Sodium Chloride 250 ml @ 250 mls/hr ONCE ONCE IVPB Last administered on 06/20/17 17:07; Admin Dose 250 MLS/HR; Start 06/20/17 at 18:00; Stop 06/20/17 at 18:59 Meropenem/Sodium Chloride 50 ml @ 100 mls/hr Q24H IVPB ; Start 06/20/17 at 18:00 Vancomycin HCl/ Sodium Chloride (Vancocin/NS) 250 ml @ 83.333 mls/ hr ONCE ONCE IVPB ; Start 06/20/17 at 20:00; Stop 06/20/17 at 22:59 Assessment/Plan Chief Complaint/Hosp Course 1. acute on chronic hypoxemic respiratory failure: 2. S/P NSTEMI: due to demand ischemia. currently stable with no angina. 3. CHF/ fluid overload: due to diastolic heart failure and renal failure: fluid management as with HD. 4. moderate 5. Arrhythmia and P afib, frequent PVC: currently in NSR. 6. ANEMIA: s/p multiple transfusion 7. s/p pneumonia, . 8. s/p sepsis and shock: BP is stable now. 9. Anasarca 10. s/p cardiopulm arrest due to resp failure 11. renal failure : ON HD now. Rec: cont resp care. CONT weaning as tolerated. correct lytes prn. CONT betablocker as tolerated. . cont thyroid supplement . cont tele monitoring HD as per renal s/p multiple transfusions. . cont low dose ASA 81 mg only due to recurrent anemia. THANK YOU. Problems: FRANCISCO BLACKWOOD MD Jun 20, 2017 18:10
[2017-06-20] MEDS: MEROPENEM 500MG/50 ML (PMX) 50 ML IVPB SCH (18:43)
--- NOTE | 2017-06-20 19:14 | PN ---
DATE: 06/20/2017 SUBJECTIVE DATA: The patient had a dislodged PEG yesterday and some induration around it. She is lethargic, weak, looks comfortable and afebrile. at bedside. OBJECTIVE DATA: VITAL SIGNS: Temperature 98.1, pulse 90, respirations 20, blood pressure 155/70, and saturation 97 on vent. LABORATORY AND DIAGNOSTIC DATA: WBC 18.4, H and H 9.2 and 29, platelets 363, and neutrophils 72.4. INDWELLINGS: PEG left upper extremity, PICC line, and right chest PermCath. ANTIMICROBIALS: Patient is on oral vancomycin and oral fluconazole. PHYSICAL EXAMINATION: GENERAL: Chronically ill-appearing, elderly woman, who is in no distress. HEENT: Head atraumatic, normocephalic. Sclerae anicteric. Buccal mucosa dry. NECK: Supple. CHEST: Chest rise symmetrical. Breath sounds diminished at bases. HEART: S1, S2. ABDOMEN: Soft. There is a induration around G-tube site with erythema. Bowel tones hypoactive. EXTREMITIES: With trace edema. SKIN: Positive for anasarca. ASSESSMENT: 1. G-tube site cellulitis with possible developing abscess. 2. Clostridium difficile colitis. 3. Fungal urinary tract infection (UTI). 4. Chronic respiratory failure. 5. End-stage renal disease, hemodialysis dependent. 6. History of fungemia on admission. 7. History of left upper extremity deep vein thrombosis. 8. Encephalopathy. 9. History of throat cancer. PLAN: 1. We are going to start the patient on IV vancomycin and meropenem. 2. We will change oral vancomycin to Flagyl. 3. Discontinue voriconazole and start her on IV Cancidas. 4. Await for surgical evaluation. 5. Follow Gastroenterology, Pulmonary, and Nephrology recommendations. 6. Above was discussed with at bedside. Dictated By: Doyle Patton NP /marquita/[email or web address] /Document#: [id number]
[2017-06-20] MEDS ORDERED: VANCOMYCIN 1.25 GM in SOD CHLORIDE 0.9% 250 ML IVPB ONE (20:00)
[2017-06-20] MEDS: metroNIDAZOLE 500 MG/NS (PMX) 100 ML IVPB SCH (22:02)
[2017-06-21] VITALS (15 sets, daily range): BP systolic 95–174; BP diastolic 50–81; PULSE 81–93; RESP 16–19
[2017-06-21] MEDS: METOCLOPRAMIDE 10 MG INJ IV SCH ×4 (01:18→18:22)
[2017-06-21] MEDS: DEXTROSE 5%-0.9% NACL 1,000 ML IV SCH (02:00)
[2017-06-21] MEDS: ALBUTEROL/IPRATROPIUM (NEB) 3 ML AMP HHN SCH ×4 (02:21→13:53)
[2017-06-21] MEDS: hydrALAzine 20 MG INJ IV PRN (02:53)
[2017-06-21] MEDS: HYDROCODONE/APAP (5/325) TAB GTB SCH ×4 (02:58→18:47)
[2017-06-21] MEDS: metroNIDAZOLE 500 MG/NS (PMX) 100 ML IVPB SCH ×2 (05:36→15:01)
[2017-06-21] MEDS: LANSOPRAZOLE 30 MG CAP GTB SCH ×2 (05:36→18:22)
[2017-06-21] MEDS: LEVOTHYROXINE 175 MCG TAB GTB SCH (05:36)
[2017-06-21] MEDS: INSULIN ASPART [NOVOLOG] 3 ML PEN SC SCH ×4 (05:42→18:00)
[2017-06-21 07:15] LABS: ABNORMAL IP MESSAGE 1; BASOPHIL # 0.1 10^3/ul (0.0-0.1); BASOPHILS % 0.7 % (0.0-2.0); EOSINOPHILS # 0.4 10^3/ul (0.0-0.5); EOSINOPHILS % 3.9 % (0.0-7.0); HEMATOCRIT 26.5 % (37.0-47.0); HEMOGLOBIN 8.3 g/dl (12.0-16.0); LYMPHOCYTES # 1.2 10^3/ul (0.8-2.9); LYMPHOCYTES % 10.8 % (15.0-51.0); MEAN CORPUSCULAR HEMOGLOBIN 31.2 pg (29.0-33.0); MEAN CORPUSCULAR HGB CONC 31.3 g/dl (32.0-37.0); MEAN CORPUSCULAR VOLUME 99.6 fl (82.0-101.0); MEAN PLATELET VOLUME 9.2 fl (7.4-10.4); MONOCYTE # 1.1 10^3/ul (0.3-0.9); MONOCYTES % 10.1 % (0.0-11.0); NEUTROPHILS % 68.7 % (39.0-77.0); NUCLEATED RED BLOOD CELLS% 0.4 /100WBC (0.0-0.0); PLATELET COUNT 374 10^3/UL (140-415); RED BLOOD COUNT 2.66 10^6/ul (4.20-5.40); WHITE BLOOD COUNT 10.7 10^3/ul (4.8-10.8)
[2017-06-21 07:19] LABS: POSITIVE DIFF @See below
[2017-06-21 07:48] LABS: CREATININE 1.72 mg/dl (0.44-1.00); MAGNESIUM 2.3 mg/dl (1.7-2.5); PHOSPHORUS 3.7 mg/dl (2.5-4.9); POTASSIUM 3.5 mmol/L (3.5-5.1)
[2017-06-21] MEDS: METOPROLOL 25 MG TAB GTB SCH ×3 (09:00→16:35)
--- NOTE | 2017-06-21 09:38 | PN ---
Date/Time of Note Date/Time of Note DATE: 06/21/17 TIME: 09:34 Assessment/Plan Lines/Catheters IV Catheter Type (from [facility]): Perm Cath Latif in Place (from [facility]): No Assessment/Plan Chief Complaint/Hosp Course 1. Cholelithiasis: Tolerating tube feeds; no abdominal pain/discomfort/bloating ; +bowel function -No surgical intervention required at this time 2. Pneumonia: Recurrent +sputum cultures; appears comfortable, no fevers, s/p abx -pulmonary toilet -wean as tolerated 3. Vent dependent respiratory failure: 2/2 aspiration PNA+ CHF;reintubated and extubated, coded 04/21 and 05/01; off vent, on tpiece -as above 4. KEYONNA: now with HD with + urine output; outpatient HD; Cr improved -judicious fluid management -avoid nephrotoxic agents 5. Uncontrolled Afib: s/p amiodarone drip, on oral amiodarone; episodes of Afib ; currently SR -medical optimization 6. Leukocytosis with lactic acidosis: 2/2 pneumonia +/- steroids vs.fungemia vs other (urine, repeat blood cultures negative); normalized 7. Macrocytic anemia: chronic vs. dilutional vs. acute bleed vs. b12/folate deficiency; hh stable -monitor -Transfuse as needed 8. Electrolyte imbalance: (hyponatremia, hypokalemia); improved -electrolyte optimization 9. CHF: BNP elevated -judicious fluid management -medical optimization 10. Adrenal Insufficiency -solucortef 11. Hypothyroidism -on synthroid 12. Hypoalbuminemia: 2/2 malnutrition +/- inflammation; decreased; tolerating tf ; -nutrition optimization -as above 13. Gtube malfunction: s/p replacement by gi; concern for abscess peristomal -no abscess per us Patient seen and examined in collaboration with Dr. Justus Antonio. Thank you Problems: Subjective 24 Hr Interval Summary S/p g tube insertion yesterday. Concern for peristomal abscess- No abscess per US. Receiving dialysis today. WBC normalized today. No fevers, chills, sob, cp, palpitations, n/v/d/dysuria. Tolerating tf. +bowel function. Exam/Review of Systems Vital Signs Vitals Vital Signs Date Time Temp Pulse Resp B/P Pulse Ox O2 Delivery O2 Flow Rate FiO2 06/21/17 08:57 99 5.0 28 9/9/17 08:55 85 20 Aerosol T Tube 06/21/17 07:54 97.9 118/69 Intake and Output 06/20/17 06/20/17 06/21/17 14:59 22:59 06:59 Intake Total 560 ml 1360 ml Balance 560 ml 1360 ml Exam Free Text/Dictation Constitutional: fully awake, alert Head: atraumatic, normocephalic Eyes: PERRL, edema bilateral upper eyelids without erythema, some swelling, nl sclera; ENMT: No mucosa pink and moist (pink and moist with healed perioral lesions), tooth missing, mild facial swelling-improved Neck: non-tender, supple, tracheostomy on t-piece Respiratory: diminished, min sputum Cardiovascular: nl pulses, regular rate and rhythm, gen swelling improved Gastrointestinal: non distended, GT tubes site with min peristomal erythema, no drainage, non tenderness, bowel sounds x 4 quads, soft; tf ongoing Genitourinary - Female: nl external genitalia; +uop Musculoskeletal: nl extremities to inspection, min edema Extremities: normal pulses, Neurological: responsive Skin: nl turgor, No rash or lesions Lymph: nl lymph node Results Result Diagram: 06/21/1761606/21/17616 ADDISON FREGOSO NP Jun 21, 2017 09:38
[2017-06-21] MEDS: MUPIROCIN 2% 22 GM OINT TOP SCH ×2 (09:43→09:47)
[2017-06-21] MEDS: VITAMIN A & D 5 GM OINT PACKET TOP SCH ×3 (09:43→12:29)
[2017-06-21] MEDS: CHLORHEXIDINE GLUCONATE 15 ML UD CUP MT SCH ×2 (09:43→09:47)
[2017-06-21] MEDS: HEPARIN 1000 UNITS/ML 10 ML INJ CATHETER SCH (10:24)
--- NOTE | 2017-06-21 10:51 | CONS ---
Date/Time of Note Date/Time of Note DATE: 06/21/17 TIME: 10:50 Consult Date/Type/Reason Admit Date/Time Apr 11, 2017 at 11:28 Initial Consult Date 04/12/17 Type of Consultation: Pulmonary Ordering Provider: NINA MACIEL DO Subjective No events. Continues cool aerosol.. Objective Vital Signs Date Time Temp Pulse Resp B/P Pulse Ox O2 Delivery O2 Flow Rate FiO2 06/21/17 10:00 91 18 06/21/17 08:57 99 5.0 28 06/21/17 08:55 Aerosol T Tube 06/21/17 07:54 97.9 118/69 Intake and Output 06/20/17 06/20/17 06/21/17 15:00 23:00 07:00 Intake Total 560 ml 1360 ml Balance 560 ml 1360 ml Exam PHYSICAL EXAMINATION GENERAL: Elderly appears comfortable on cool aerosol VITAL SIGNS: see below. HEENT: Pupils equal, round, and reactive to light. Tracheostomy site clean and intact. CARDIAC: S1, S2, 1/6 systolic ejection murmur CHEST: Diminished air entry bilaterally. ABDOMEN: Mildly distended. Bowel sounds present no guarding or rebound EXTREMITIES: No cyanosis, clubbing edema +1 NEUROLOGIC: Generalized weakness lady appears comfortable on cool aerosol. Results/Medications Result Diagram: 06/21/17 0617 06/21/17 0617 Results 24 hrs Laboratory Tests Test 06/20/17 13:09 06/20/17 18:01 06/21/17 01:20 06/21/17 05:37 Bedside Glucose 105 110 110 149 Test 06/21/17 06:17 White Blood Count 10.7 # Red Blood Count 2.66 L Hemoglobin 8.3 L Hematocrit 26.5 L Mean Corpuscular Volume 99.6 Mean Corpuscular Hemoglobin 31.2 Mean Corpuscular Hemoglobin Concent 31.3 L Red Cell Distribution Width 19.0 H Platelet Count 374 Mean Platelet Volume 9.2 Neutrophils % 68.7 Lymphocytes % 10.8 L Monocytes % 10.1 Eosinophils % 3.9 Basophils % 0.7 Nucleated Red Blood Cells % 0.4 H Neutrophils # (Manual) 7.3 Lymphocytes # 1.2 Monocytes # 1.1 H Eosinophils # 0.4 Basophils # 0.1 Nucleated Red Blood Cells # 0.0 Sodium Level 132 L Potassium Level 3.5 Chloride Level 99 Carbon Dioxide Level 29 Anion Gap 8 Blood Urea Nitrogen 38 H Creatinine 1.72 H Glucose Level 146 # Calcium Level 9.0 Phosphorus Level 3.7 Magnesium Level 2.3 Medications Current Medications Metoprolol Tartrate (Lopressor) 5 mg Q4H PRN IV HR>110 Hold SBP<110 Last administered on 04/20/17 17:36; Admin Dose 5 MG; Start 04/11/17 at 13:30 Miscellaneous Information 1 ea NOTE XX ; Start 04/11/17 at 16:30 Glucose (Glutose) 15 gm Q15M PRN PO DECREASED GLUCOSE Last administered on 05/07 03:27; Admin Dose 15 GM; Start 04/11/17 at 16:30 Glucose (Glutose) 22.5 gm Q15M PRN PO DECREASED GLUCOSE; Start 04/11/17 at 16: 30 Dextrose (D50w Syringe) 25 ml Q15M PRN IV DECREASED GLUCOSE Last administered on 04/12/17 23:56; Admin Dose 25 ML; Start 04/11/17 at 16:30 Dextrose (D50w Syringe) 50 ml Q15M PRN IV DECREASED GLUCOSE; Start 04/11/17 at 16:30 Glucagon (Glucagen) 1 mg Q15M PRN IM DECREASED GLUCOSE; Start 04/11/17 at 16:30 Glucose (Glutose) 15 gm Q15M PRN BUCCAL DECREASED GLUCOSE; Start 04/11/17 at 16 :30 Metoclopramide HCl (Reglan) 10 mg Q6 IV Last administered on 06/21/17 05:36; Admin Dose 10 MG; Start 04/12/17 at 18:00 Insulin Aspart (Novolog Insulin Pen) NOVOLOG *MILD* ALGORI... Q6H SC Last administered on 06/21/17 05:42; Admin Dose 1 UNIT; Start 04/15/17 at 00:00 IV Flush (NS 10 ml) 10 ml PRN PRN IV FLUSH LINE Last administered on 06/12/17 23:32; Admin Dose 10 ML; Start 04/15/17 at 13:00 Amiodarone HCl (Cordarone) 200 mg BID GTB Last administered on 06/20/17 22:01; Admin Dose 200 MG; Start 04/16/17 at 13:00 Citalopram Hydrobromide (Celexa) 20 mg DAILY NGT Last administered on 06/19/17 09:15; Admin Dose 20 MG; Start 04/19/17 at 09:00 Hydralazine HCl (Apresoline) 20 mg Q6H PRN IV sbp ABOVE 160 Last administered on 06/21/17 02:53; Admin Dose 20 MG; Start 04/18/17 at 18:30 Chlorhexidine Gluconate (Peridex) 15 ml BID MT Last administered on 06/21/17 09 :47; Admin Dose 15 ML; Start 04/22/17 at 21:00 Vitamin A/Vitamin D (Vitamin A & D Oint) 1 applic TID TOP Last administered on 06/21/17 09:47; Admin Dose 1 APPLIC; Start 04/22/17 at 21:00 Vitamin A/Vitamin D (Vitamin A & D Oint) 1 applic TID PRN TOP DRYNESS Last administered on 04/22/17 15:29; Admin Dose 1 APPLIC; Start 04/22/17 at 15:00 Acetaminophen/ Hydrocodone Bitart ([place] (5/325)) 1 tab Q6H GTB Last administered on 06/21/17 02:58; Admin Dose 1 TAB; Start 04/22/17 at 21:30 Diltiazem HCl 5 mg 5 mg Q1H PRN IV HEART RATE GREATER THAN 120 Last administered on 04/29/17 06:17; Admin Dose 5 MG; Start 04/29/17 at 05:00 Sodium Chloride 1,000 ml @ 0 mls/hr Q0M IV Last administered on 05/01/17 03: 00; Admin Dose 1,000 MLS/HR; Start 05/01/17 at 03:00 Sodium Chloride 1,000 ml @ 0 mls/hr Q0M IV Last administered on 05/01/17 04: 00; Admin Dose 1,000 MLS/HR; Start 05/01/17 at 03:30 Diltiazem HCl (Cardizem-D5W 125 Mg/125 ml Drip) 125 ml @ 5 mls/hr TITRATE IV Last administered on 05/02/17 19:11; Admin Dose 5 MLS/HR; Start 05/02/17 at 19: 00 Metoprolol Tartrate (Lopressor) 25 mg QID GTB Last administered on 06/20/17 22: 01; Admin Dose 25 MG; Start 05/07/17 at 09:00 Vitamin B Complex/ Vitamin C (Berocca) 1 cap DAILY PO Last administered on 09:15; Admin Dose 1 CAP; Start 05/13/17 at 09:00 Aspirin (Aspirin) 81 mg DAILY NGT Last administered on 06/19/17 09:15; Admin Dose 81 MG; Start 05/19/17 at 09:00 Lansoprazole (Prevacid) 30 mg BID@06,18 GTB Last administered on 06/21/17 05:36 ; Admin Dose 30 MG; Start 05/20/17 at 18:00 Multivitamins (Multivitamin) 30 ml DAILY GTB Last administered on 06/19/17 09: 12; Admin Dose 30 ML; Start 05/24/17 at 09:00 Epoetin Perry (Epogen (Esrd)) 12,000 units TuThSa@17 SC Last administered on 06/19 17:21; Admin Dose 12,000 UNITS; Start 06/05/17 at 17:00 Levothyroxine Sodium (Synthroid) 175 mcg DAILY@06 GTB Last administered on 05:36; Admin Dose 175 MCG; Start 06/16/17 at 06:00 Hydromorphone HCl 0.5 mg 0.5 mg Q4H PRN IV PAIN; Start 06/20/17 at 02:30 Dextrose/Sodium Chloride (D5-NS) 1,000 ml @ 50 mls/hr Q20H IV Last administered on 06/21/17 02:00; Admin Dose 50 MLS/HR; Start 06/20/17 at 09:30 Mupirocin 1 applic 1 applic BID TOP Last administered on 06/21/17 09:47; Admin Dose 1 APPLIC; Start 06/20/17 at 13:00 Metronidazole 100 ml @ 100 mls/hr Q8 IVPB Last administered on 06/21/17 05:36 ; Admin Dose 100 MLS/HR; Start 06/20/17 at 22:00 Meropenem/Sodium Chloride 50 ml @ 100 mls/hr Q24H IVPB Last administered on 18:43; Admin Dose 100 MLS/HR; Start 06/20/17 at 18:00 Caspofungin/ Sodium Chloride (Cancidas/NS) 250 ml @ 250 mls/hr Q24H IVPB ; Start 06/21/17 at 17:00 Assessment/Plan Chief Complaint/Hosp Course Additional Assessment/Plan IMP: 1. Chronic respiratory failure now on cool aerosol 3. s/p Hypercapnic Respiratory Failure--likely due to critical illness myopathy/ neuropathy 4. s/p septic shock, on going sepsis. 5. Demand Ischemia 6. s/p Cholecystitis 7. Encephalopathy toxic metabolic resolving 8. End-stage renal failure requiring intermittent hemodialysis RECS: 1. Continue cool aerosol 2. BDs 3. TFs/Free H2O 4. Hemodialysis per nephrology Pending discharge. Problems: DARWIN CRAWFORD MD, FCCP Jun 21, 2017 10:51
[2017-06-21] MEDS: ASPIRIN 81 MG TAB NGT SCH (10:55)
[2017-06-21] MEDS: MULTIVITAMINS 30 ML CUP GTB SCH (10:56)
[2017-06-21] MEDS: CITALOPRAM 20 MG TAB NGT SCH (10:56)
[2017-06-21] MEDS: VITAMIN B COMPLEX/VIT C CAP PO SCH (10:57)
--- NOTE | 2017-06-21 12:11 | PN ---
DATE: 06/21/2017 SUBJECTIVE DATA: The patient is stable. Currently receiving hemodialysis. I spoke with patient's son, at bedside. Was concerned about the patient's lack of phonation. I informed them that an ENT evaluation will need to be done. Patient is pending transfer back to a new facility and that will be done at the new facility upon transfer. No other events noted. OBJECTIVE DATA: VITAL SIGNS: Blood pressure is 118/69, respirations 19, pulse 71, temperature 97.9. HEENT: Head is normocephalic. NECK: Supple. HEART: Regular rate. LUNGS: Show diminished breath sounds at the base. ABDOMEN: Soft, nontender to palpation. No rebound or guarding. EXTREMITIES: Negative for clubbing, cyanosis. Positive edema. DERMATOLOGIC: Clean. No rashes. MUSCULOSKELETAL: No joint effusion. NEUROLOGIC: No change in exam. MEDICATIONS: Reviewed. LABORATORY AND DIAGNOSTIC DATA: Shows sodium 132, potassium 3.5, BUN 38, creatinine 1.72. White count 10.7, hemoglobin 8.3, hematocrit 26.5, platelet count is 374. ASSESSMENT AND PLAN: 1. Ventilatory-dependent respiratory failure. Vent settings reviewed. ABGs reviewed. Continue to monitor. 2. Nonoliguric acute kidney injury on chronic kidney disease, now probably end-stage renal disease. The patient is currently dialysis dependent with no signs of recovery. Continue to observe. 3. Clostridium difficile colitis improving. Continue vancomycin. 4. Volume overload. Continue ultrafiltration dialysis. 5. Anemia. Monitor H and H levels. Continue Epogen. 6. Sepsis. The patient is completing antibiotic course. 7. Encephalopathy, improving. 8. Hypothyroidism. Continue Synthroid. 9. Dysphagia. The patient's gastrostomy tube was replaced. Continue tube feeding. 10. History of thyroid cancer with tracheomalacia. The patient is seen by ENT. Continue to monitor. 11. Dysphonia. The patient is unable to phonate or speak with a [place] valve. Unclear if there was vocal cord damage during hospital course and emergent tracheostomy. Would place an ENT consult for re-evaluation, however, patient is pending transfer to [place]. Would recommend for evaluation by ENT at that facility. 12. Status post gastrointestinal bleed. 13. History of adrenal insufficiency. 14. Gastrointestinal and deep venous thrombosis prophylaxes. 15. Fungal urinary tract infection. Continue antifungal therapy. Dictated By: Abebe Valderrama DO /marquita/unruly /Document#: [id number]
[2017-06-21] MEDS: AMIODARONE 200 MG TAB GTB SCH (12:28)
--- NOTE | 2017-06-21 12:40 | CONS ---
Date/Time of Note Date/Time of Note DATE: 06/21/17 TIME: 12:39 Assessment/Plan Assessment/Plan Chief Complaint/Hosp Course Patient is a 66 year old female with a history of diabetes mellitus hypertension chronic vent dependency, history of tongue cancer status post resection has a G-tube. GI consult was called in for GI bleeding anemia requiring blood transfusion. Her other problems include aspiration pneumonia, atrial fibrillation well controlled. Patient also had a sepsis and fungemia successfully treated. Her G-tube aspirate shows burgundy colored fluid. Patient is off all the pressor support. She is on a steroid for adrenal insufficiency Problems: Additional Assessment/Plan ASSESSMENT AND PLAN: 1. Ventilatory-dependent respiratory failure. 2. Dislodgment of G-tube 3. end-stage renal disease. 3. Clostridium difficile colitis. 5. Anemia. Monitor hemoglobin and hematocrit levels. Continue Epogen. 6. Sepsis. The patient is completing antibiotic course. 7. Encephalopathy. Improving. 8. Hypothyroidism. Continue Synthroid. 9. Dysphagia. Status post a change of G-tube. Based on ultrasound of the G- tube site there is no evidence of collection of fluid 10. History of thyroid cancer with tracheomalacia. 11. Status post gastrointestinal bleed. 12. History of adrenal insufficiency. Plan 20 [place] G-tube successfully inserted does a good retrograde flow of bile juice confirming its position in the stomach. Patient is tolerating feeding Patient also had induration surrounding the G-tube extending by about 2 cm circumferentially Bactroban to G-tube site twice daily Consultation Date/Type/Reason Admit Date/Time Apr 11, 2017 at 11:28 Initial Consult Date 05/01/17 Type of Consultation: Pulmonary Referring Provider: NINA MACIEL DO 24 HR Interval Summary Constitutional: improved, no complaints Exam/Review of Systems Vital Signs Vitals Vital Signs Date Time Temp Pulse Resp B/P Pulse Ox O2 Delivery O2 Flow Rate FiO2 06/21/17 12:00 93 06/21/17 11:27 97.9 19 174/81 97 06/21/17 08:57 5.0 28 06/21/17 08:55 Aerosol T Tube Intake and Output 06/20/17 06/20/17 06/21/17 15:00 23:00 07:00 Intake Total 560 ml 1360 ml Balance 560 ml 1360 ml Exam Constitutional: alert, oriented, well developed Psych: nl mood/affect, no complaints Head: atraumatic, normocephalic Eyes: EOMI, PERRL, nl conjunctiva, nl lids, nl sclera ENMT: nl external ears & nose, nl lips & teeth, nl nasal mucosa & septum Neck: non-tender, supple Respiratory: clear to auscultation, normal air movement Cardiovascular: nl pulses, regular rate and rhythm Gastrointestinal: nl liver, spleen, non-tender, soft Musculoskeletal: nl extremities to inspection, nl gait and stance Extremities: normal pulses Neurological: NURSING PROGRAM COORDINATOR II-XII intact, nl mental status, nl speech, nl strength Skin: nl turgor, No rash or lesions Lymph: nl lymph nodes Results Result Diagram: 06/21/1761606/21/17 0617 Results 24 hrs Laboratory Tests Test 06/20/17 13:09 06/20/17 18:01 06/21/17 01:20 06/21/17 05:37 Bedside Glucose 105 110 110 149 Test 06/21/17 06:17 White Blood Count 10.7 # Red Blood Count 2.66 L Hemoglobin 8.3 L Hematocrit 26.5 L Mean Corpuscular Volume 99.6 Mean Corpuscular Hemoglobin 31.2 Mean Corpuscular Hemoglobin Concent 31.3 L Red Cell Distribution Width 19.0 H Platelet Count 374 Mean Platelet Volume 9.2 Neutrophils % 68.7 Lymphocytes % 10.8 L Monocytes % 10.1 Eosinophils % 3.9 Basophils % 0.7 Nucleated Red Blood Cells % 0.4 H Neutrophils # (Manual) 7.3 Lymphocytes # 1.2 Monocytes # 1.1 H Eosinophils # 0.4 Basophils # 0.1 Nucleated Red Blood Cells # 0.0 Sodium Level 132 L Potassium Level 3.5 Chloride Level 99 Carbon Dioxide Level 29 Anion Gap 8 Blood Urea Nitrogen 38 H Creatinine 1.72 H Glucose Level 146 # Calcium Level 9.0 Phosphorus Level 3.7 Magnesium Level 2.3 Medications Medications Current Medications Metoprolol Tartrate (Lopressor) 5 mg Q4H PRN IV HR>110 Hold SBP<110 Last administered on 04/20/17 17:36; Admin Dose 5 MG; Start 04/11/17 at 13:30 Miscellaneous Information 1 ea NOTE XX ; Start 04/11/17 at 16:30 Glucose (Glutose) 15 gm Q15M PRN PO DECREASED GLUCOSE Last administered on 05/07 03:27; Admin Dose 15 GM; Start 04/11/17 at 16:30 Glucose (Glutose) 22.5 gm Q15M PRN PO DECREASED GLUCOSE; Start 04/11/17 at 16: 30 Dextrose (D50w Syringe) 25 ml Q15M PRN IV DECREASED GLUCOSE Last administered on 04/12/17 23:56; Admin Dose 25 ML; Start 04/11/17 at 16:30 Dextrose (D50w Syringe) 50 ml Q15M PRN IV DECREASED GLUCOSE; Start 04/11/17 at 16:30 Glucagon (Glucagen) 1 mg Q15M PRN IM DECREASED GLUCOSE; Start 04/11/17 at 16:30 Glucose (Glutose) 15 gm Q15M PRN BUCCAL DECREASED GLUCOSE; Start 04/11/17 at 16 :30 Metoclopramide HCl (Reglan) 10 mg Q6 IV Last administered on 06/21/17 05:36; Admin Dose 10 MG; Start 04/12/17 at 18:00 Insulin Aspart (Novolog Insulin Pen) NOVOLOG *MILD* ALGORI... Q6H SC Last administered on 06/21/17 05:42; Admin Dose 1 UNIT; Start 04/15/17 at 00:00 IV Flush (NS 10 ml) 10 ml PRN PRN IV FLUSH LINE Last administered on 06/12/17 23:32; Admin Dose 10 ML; Start 04/15/17 at 13:00 Amiodarone HCl (Cordarone) 200 mg BID GTB Last administered on 06/20/17 22:01; Admin Dose 200 MG; Start 04/16/17 at 13:00 Citalopram Hydrobromide (Celexa) 20 mg DAILY NGT Last administered on 06/21/17 10:56; Admin Dose 20 MG; Start 04/19/17 at 09:00 Hydralazine HCl (Apresoline) 20 mg Q6H PRN IV sbp ABOVE 160 Last administered on 06/21/17 02:53; Admin Dose 20 MG; Start 04/18/17 at 18:30 Chlorhexidine Gluconate (Peridex) 15 ml BID MT Last administered on 06/21/17 09 :47; Admin Dose 15 ML; Start 04/22/17 at 21:00 Vitamin A/Vitamin D (Vitamin A & D Oint) 1 applic TID TOP Last administered on 06/21/17 09:47; Admin Dose 1 APPLIC; Start 04/22/17 at 21:00 Vitamin A/Vitamin D (Vitamin A & D Oint) 1 applic TID PRN TOP DRYNESS Last administered on 04/22/17 15:29; Admin Dose 1 APPLIC; Start 04/22/17 at 15:00 Acetaminophen/ Hydrocodone Bitart ([place] (5/325)) 1 tab Q6H GTB Last administered on 06/21/17 10:57; Admin Dose 1 TAB; Start 04/22/17 at 21:30 Diltiazem HCl 5 mg 5 mg Q1H PRN IV HEART RATE GREATER THAN 120 Last administered on 04/29/17 06:17; Admin Dose 5 MG; Start 04/29/17 at 05:00 Sodium Chloride 1,000 ml @ 0 mls/hr Q0M IV Last administered on 05/01/17 03: 00; Admin Dose 1,000 MLS/HR; Start 05/01/17 at 03:00 Sodium Chloride 1,000 ml @ 0 mls/hr Q0M IV Last administered on 05/01/17 04: 00; Admin Dose 1,000 MLS/HR; Start 05/01/17 at 03:30 Diltiazem HCl (Cardizem-D5W 125 Mg/125 ml Drip) 125 ml @ 5 mls/hr TITRATE IV Last administered on 05/02/17 19:11; Admin Dose 5 MLS/HR; Start 05/02/17 at 19: 00 Metoprolol Tartrate (Lopressor) 25 mg QID GTB Last administered on 06/20/17 22: 01; Admin Dose 25 MG; Start 05/07/17 at 09:00 Vitamin B Complex/ Vitamin C (Berocca) 1 cap DAILY PO Last administered on 10:57; Admin Dose 1 CAP; Start 05/13/17 at 09:00 Aspirin (Aspirin) 81 mg DAILY NGT Last administered on 06/21/17 10:55; Admin Dose 81 MG; Start 05/19/17 at 09:00 Lansoprazole (Prevacid) 30 mg BID@06,18 GTB Last administered on 06/21/17 05:36 ; Admin Dose 30 MG; Start 05/20/17 at 18:00 Multivitamins (Multivitamin) 30 ml DAILY GTB Last administered on 06/21/17 10: 56; Admin Dose 30 ML; Start 05/24/17 at 09:00 Epoetin [place] (Epogen (Esrd)) 12,000 units TuThSa@17 SC Last administered on 06/19 17:21; Admin Dose 12,000 UNITS; Start 06/05/17 at 17:00 Levothyroxine Sodium (Synthroid) 175 mcg DAILY@06 GTB Last administered on 05:36; Admin Dose 175 MCG; Start 06/16/17 at 06:00 Hydromorphone HCl 0.5 mg 0.5 mg Q4H PRN IV PAIN; Start 06/20/17 at 02:30 Dextrose/Sodium Chloride (D5-NS) 1,000 ml @ 50 mls/hr Q20H IV Last administered on 06/21/17 02:00; Admin Dose 50 MLS/HR; Start 06/20/17 at 09:30 Mupirocin 1 applic 1 applic BID TOP Last administered on 06/21/17 09:47; Admin Dose 1 APPLIC; Start 06/20/17 at 13:00 Metronidazole 100 ml @ 100 mls/hr Q8 IVPB Last administered on 06/21/17 05:36 ; Admin Dose 100 MLS/HR; Start 06/20/17 at 22:00 Meropenem/Sodium Chloride 50 ml @ 100 mls/hr Q24H IVPB Last administered on 18:43; Admin Dose 100 MLS/HR; Start 06/20/17 at 18:00 Caspofungin/ Sodium Chloride (Cancidas/NS) 250 ml @ 250 mls/hr Q24H IVPB ; Start 06/21/17 at 17:00 Miscellaneous Information (*Rx Drug Level Order Reminder*) RANDOM VANCOMYCIN LEVEL 9... ONCE ONCE XX ; Start 06/22/17 at 05:00; Stop 06/22/17 at 05:01 ALYSSA THOMPSON MD Jun 21, 2017 12:40
[2017-06-21] MEDS: EPOETIN 4000 UNITS/1 ML INJ (ESRD) SC SCH (16:24)
[2017-06-21] MEDS ORDERED: CASPOFUNGIN 50 MG in SOD CHLORIDE 0.9% 250 ML IVPB SCH ×2 (17:00→18:00)
--- NOTE | 2017-06-21 17:02 | CONS ---
Date/Time of Note Date/Time of Note DATE: 06/21/17 TIME: 16:59 Assessment/Plan Assessment/Plan Chief Complaint/Hosp Course SUBJECTIVE DATA: No events, sleeping, TF at 30 cc, no fevers, nad INDWELLINGS: PEG left upper extremity, PICC line, and right chest PermCath. ANTIMICROBIALS: Merrm, Flagyl, Vanco, Cancidas PHYSICAL EXAMINATION: GENERAL: Chronically ill-appearing, elderly woman, who is in no distress. HEENT: Head atraumatic, normocephalic. Sclerae anicteric. Buccal mucosa dry. NECK: Supple. CHEST: Chest rise symmetrical. Breath sounds diminished at bases. HEART: S1, S2. ABDOMEN: Soft. There is a induration around G-tube site with erythema. Bowel tones present. EXTREMITIES: With trace edema. SKIN: Positive for anasarca. ASSESSMENT: 1. G-tube site cellulitis ==> no abscess per US. 2. Clostridium difficile colitis. 3. Fungal urinary tract infection (UTI). 4. Chronic respiratory failure. 5. End-stage renal disease, hemodialysis dependent. 6. History of fungemia on admission. 7. History of left upper extremity deep vein thrombosis. 8. Encephalopathy. 9. History of throat cancer. PLAN: Stable, wbc decreased, continue present care, abx, GI/surgical/pulm/card rec-s DW Problems: Consultation Date/Type/Reason Admit Date/Time Apr 11, 2017 at 11:28 Initial Consult Date 04/12/17 Type of Consultation: ID Referring Provider: NINA MACIEL DO Exam/Review of Systems Vital Signs Vitals Vital Signs Date Time Temp Pulse Resp B/P Pulse Ox O2 Delivery O2 Flow Rate FiO2 06/21/17 16:01 97.7 79 19 138/80 98 06/21/17 14:00 5.0 28 06/21/17 13:59 Aerosol T Tube Intake and Output 06/20/17 06/20/17 06/21/17 15:00 23:00 07:00 Intake Total 560 ml 1360 ml Balance 560 ml 1360 ml Results Result Diagram: 06/21/17 0617 06/21/17 0617 Results 24 hrs Laboratory Tests Test 06/20/17 18:01 06/21/17 01:20 06/21/17 05:37 06/21/17 06:17 Bedside Glucose 110 110 149 White Blood Count 10.7 # Red Blood Count 2.66 L Hemoglobin 8.3 L Hematocrit 26.5 L Mean Corpuscular Volume 99.6 Mean Corpuscular Hemoglobin 31.2 Mean Corpuscular Hemoglobin Concent 31.3 L Red Cell Distribution Width 19.0 H Platelet Count 374 Mean Platelet Volume 9.2 Neutrophils % 68.7 Lymphocytes % 10.8 L Monocytes % 10.1 Eosinophils % 3.9 Basophils % 0.7 Nucleated Red Blood Cells % 0.4 H Neutrophils # (Manual) 7.3 Lymphocytes # 1.2 Monocytes # 1.1 H Eosinophils # 0.4 Basophils # 0.1 Nucleated Red Blood Cells # 0.0 Sodium Level 132 L Potassium Level 3.5 Chloride Level 99 Carbon Dioxide Level 29 Anion Gap 8 Blood Urea Nitrogen 38 H Creatinine 1.72 H Glucose Level 146 # Calcium Level 9.0 Phosphorus Level 3.7 Magnesium Level 2.3 Test 06/21/17 12:42 Bedside Glucose 187 Medications Medications Current Medications Metoprolol Tartrate (Lopressor) 5 mg Q4H PRN IV HR>110 Hold SBP<110 Last administered on 04/20/17 17:36; Admin Dose 5 MG; Start 04/11/17 at 13:30 Miscellaneous Information 1 ea NOTE XX ; Start 04/11/17 at 16:30 Glucose (Glutose) 15 gm Q15M PRN PO DECREASED GLUCOSE Last administered on 05/07 03:27; Admin Dose 15 GM; Start 04/11/17 at 16:30 Glucose (Glutose) 22.5 gm Q15M PRN PO DECREASED GLUCOSE; Start 04/11/17 at 16: 30 Dextrose (D50w Syringe) 25 ml Q15M PRN IV DECREASED GLUCOSE Last administered on 04/12/17 23:56; Admin Dose 25 ML; Start 04/11/17 at 16:30 Dextrose (D50w Syringe) 50 ml Q15M PRN IV DECREASED GLUCOSE; Start 04/11/17 at 16:30 Glucagon (Glucagen) 1 mg Q15M PRN IM DECREASED GLUCOSE; Start 04/11/17 at 16:30 Glucose (Glutose) 15 gm Q15M PRN BUCCAL DECREASED GLUCOSE; Start 04/11/17 at 16 :30 Metoclopramide HCl (Reglan) 10 mg Q6 IV Last administered on 06/21/17 12:28; Admin Dose 10 MG; Start 04/12/17 at 18:00 Insulin Aspart (Novolog Insulin Pen) NOVOLOG *MILD* ALGORI... Q6H SC Last administered on 06/21/17 12:50; Admin Dose 2 UNIT; Start 04/15/17 at 00:00 IV Flush (NS 10 ml) 10 ml PRN PRN IV FLUSH LINE Last administered on 06/12/17 23:32; Admin Dose 10 ML; Start 04/15/17 at 13:00 Amiodarone HCl (Cordarone) 200 mg BID GTB Last administered on 06/21/17 12:28; Admin Dose 200 MG; Start 04/16/17 at 13:00 Citalopram Hydrobromide (Celexa) 20 mg DAILY NGT Last administered on 06/21/17 10:56; Admin Dose 20 MG; Start 04/19/17 at 09:00 Hydralazine HCl (Apresoline) 20 mg Q6H PRN IV sbp ABOVE 160 Last administered on 06/21/17 02:53; Admin Dose 20 MG; Start 04/18/17 at 18:30 Chlorhexidine Gluconate (Peridex) 15 ml BID MT Last administered on 06/21/17 09 :47; Admin Dose 15 ML; Start 04/22/17 at 21:00 Vitamin A/Vitamin D (Vitamin A & D Oint) 1 applic TID TOP Last administered on 06/21/17 12:29; Admin Dose 1 APPLIC; Start 04/22/17 at 21:00 Vitamin A/Vitamin D (Vitamin A & D Oint) 1 applic TID PRN TOP DRYNESS Last administered on 04/22/17 15:29; Admin Dose 1 APPLIC; Start 04/22/17 at 15:00 Acetaminophen/ Hydrocodone Bitart ([place] (5/325)) 1 tab Q6H GTB Last administered on 06/21/17 16:20; Admin Dose 1 TAB; Start 04/22/17 at 21:30 Diltiazem HCl 5 mg 5 mg Q1H PRN IV HEART RATE GREATER THAN 120 Last administered on 04/29/17 06:17; Admin Dose 5 MG; Start 04/29/17 at 05:00 Sodium Chloride 1,000 ml @ 0 mls/hr Q0M IV Last administered on 05/01/17 03: 00; Admin Dose 1,000 MLS/HR; Start 05/01/17 at 03:00 Sodium Chloride 1,000 ml @ 0 mls/hr Q0M IV Last administered on 05/01/17 04: 00; Admin Dose 1,000 MLS/HR; Start 05/01/17 at 03:30 Diltiazem HCl (Cardizem-D5W 125 Mg/125 ml Drip) 125 ml @ 5 mls/hr TITRATE IV Last administered on 05/02/17 19:11; Admin Dose 5 MLS/HR; Start 05/02/17 at 19: 00 Metoprolol Tartrate (Lopressor) 25 mg QID GTB Last administered on 06/21/17 16: 35; Admin Dose 25 MG; Start 05/07/17 at 09:00 Vitamin B Complex/ Vitamin C (Berocca) 1 cap DAILY PO Last administered on 10:57; Admin Dose 1 CAP; Start 05/13/17 at 09:00 Aspirin (Aspirin) 81 mg DAILY NGT Last administered on 06/21/17 10:55; Admin Dose 81 MG; Start 05/19/17 at 09:00 Lansoprazole (Prevacid) 30 mg BID@06,18 GTB Last administered on 06/21/17 05:36 ; Admin Dose 30 MG; Start 05/20/17 at 18:00 Multivitamins (Multivitamin) 30 ml DAILY GTB Last administered on 06/21/17 10: 56; Admin Dose 30 ML; Start 05/24/17 at 09:00 Epoetin Perry (Epogen (Esrd)) 12,000 units TuThSa@17 SC Last administered on 06/21 16:24; Admin Dose 12,000 UNITS; Start 06/05/17 at 17:00 Levothyroxine Sodium (Synthroid) 175 mcg DAILY@06 GTB Last administered on 05:36; Admin Dose 175 MCG; Start 06/16/17 at 06:00 Hydromorphone HCl 0.5 mg 0.5 mg Q4H PRN IV PAIN; Start 06/20/17 at 02:30 Dextrose/Sodium Chloride (D5-NS) 1,000 ml @ 50 mls/hr Q20H IV Last administered on 06/21/17 02:00; Admin Dose 50 MLS/HR; Start 06/20/17 at 09:30 Mupirocin 1 applic 1 applic BID TOP Last administered on 06/21/17 09:47; Admin Dose 1 APPLIC; Start 06/20/17 at 13:00 Metronidazole 100 ml @ 100 mls/hr Q8 IVPB Last administered on 06/21/17 15:01 ; Admin Dose 100 MLS/HR; Start 06/20/17 at 22:00 Meropenem/Sodium Chloride 50 ml @ 100 mls/hr Q24H IVPB Last administered on 18:43; Admin Dose 100 MLS/HR; Start 06/20/17 at 18:00 Caspofungin/ Sodium Chloride (Cancidas/NS) 250 ml @ 250 mls/hr Q24H IVPB Last administered on 06/21/17 16:30; Admin Dose 250 MLS/HR; Start 06/21/17 at 17:00 Miscellaneous Information (*Rx Drug Level Order Reminder*) RANDOM VANCOMYCIN LEVEL 9... ONCE ONCE XX ; Start 06/22/17 at 05:00; Stop 06/22/17 at 05:01 LORETO MCKEON NP Jun 21, 2017 17:02
[2017-06-21] MEDS: MEROPENEM 500MG/50 ML (PMX) 50 ML IVPB SCH (18:00)
== END 2017-06-21 19:15 | disposition short-term general hospital (02) | DRG 4 ==
LOC: E/R 09:13 → ICU 11:28 → TEL 04-30 10:50 → ICU 05-01 01:10 → TEL 05-08 22:57
PROVIDERS: ADMIT Family Medicine; ATTEND Internal Medicine
PROC: 06HY33Z Insertion of Infusion Device into Lower Vein, Percutaneous Approach (ICD-10-PCS; principal; 2017-04-11)
PROC: 5A1955Z Respiratory Ventilation, Greater than 96 Consecutive Hours (ICD-10-PCS; 2017-04-11)
PROC: 0BH17EZ Insertion of Endotracheal Airway into Trachea, Via Natural or Artificial Opening (ICD-10-PCS; 2017-04-11)
PROC: 02H633Z Insertion of Infusion Device into Right Atrium, Percutaneous Approach (ICD-10-PCS; 2017-04-15)
PROC: 5A12012 Performance of Cardiac Output, Single, Manual (ICD-10-PCS; 2017-04-21)
PROC: 0BH17EZ Insertion of Endotracheal Airway into Trachea, Via Natural or Artificial Opening (ICD-10-PCS; 2017-04-21)
PROC: 5A1955Z Respiratory Ventilation, Greater than 96 Consecutive Hours (ICD-10-PCS; 2017-04-21)
PROC: 0B113F4 Bypass Trachea to Cutaneous with Tracheostomy Device, Percutaneous Approach (ICD-10-PCS; 2017-05-01)
PROC: 5A12012 Performance of Cardiac Output, Single, Manual (ICD-10-PCS; 2017-05-01)
PROC: 30243N1 Transfusion of Nonautologous Red Blood Cells into Central Vein, Percutaneous Approach (ICD-10-PCS; 2017-05-01)
PROC: 3E0G8GC Introduction of Other Therapeutic Substance into Upper GI, Via Natural or Artificial Opening Endoscopic (ICD-10-PCS; 2017-05-02)
PROC: 0DJ08ZZ Inspection of Upper Intestinal Tract, Via Natural or Artificial Opening Endoscopic (ICD-10-PCS; 2017-05-02)
PROC: 06HY33Z Insertion of Infusion Device into Lower Vein, Percutaneous Approach (ICD-10-PCS; 2017-05-04)
PROC: 5A1D60Z (ICD-10-PCS; 2017-05-04)
PROC: 0CJY8ZZ Inspection of Mouth and Throat, Via Natural or Artificial Opening Endoscopic (ICD-10-PCS; 2017-05-13)
PROC: 0BJ18ZZ Inspection of Trachea, Via Natural or Artificial Opening Endoscopic (ICD-10-PCS; 2017-05-13)
PROC: 0D20XUZ Change Feeding Device in Upper Intestinal Tract, External Approach (ICD-10-PCS; 2017-06-21)
DX: A41.9 Sepsis, unspecified organism (principal); I21.4 Non-ST elevation (NSTEMI) myocardial infarction; R65.21 Severe sepsis with septic shock; N17.0 Acute kidney failure with tubular necrosis; J69.0 Pneumonitis due to inhalation of food and vomit; G92 Toxic encephalopathy; J96.21 Acute and chronic respiratory failure with hypoxia; K31.811 Angiodysplasia of stomach and duodenum with bleeding; J96.02 Acute respiratory failure with hypercapnia; I50.31 Acute diastolic (congestive) heart failure; I46.9 Cardiac arrest, cause unspecified; G72.81 Critical illness myopathy; E87.2 Acidosis; E27.3 Drug-induced adrenocortical insufficiency; I82.612 Acute embolism and thrombosis of superficial veins of left upper extremity; E46 Unspecified protein-calorie malnutrition; E87.0 Hyperosmolality and hypernatremia; D62 Acute posthemorrhagic anemia; B49 Unspecified mycosis; R04.2 Hemoptysis; N39.0 Urinary tract infection, site not specified; A04.7 Enterocolitis due to Clostridium difficile; K94.22 Gastrostomy infection; L03.311 Cellulitis of abdominal wall; E03.9 Hypothyroidism, unspecified; E11.9 Type 2 diabetes mellitus without complications; E83.42 Hypomagnesemia; I11.0 Hypertensive heart disease with heart failure; I48.0 Paroxysmal atrial fibrillation; K80.20 Calculus of gallbladder without cholecystitis without obstruction; R19.7 Diarrhea, unspecified; E87.5 Hyperkalemia; D50.0 Iron deficiency anemia secondary to blood loss (chronic); B00.1 Herpesviral vesicular dermatitis; R13.10 Dysphagia, unspecified; B96.4 Proteus (mirabilis) (morganii) as the cause of diseases classified elsewhere; Z79.4 Long term (current) use of insulin; Y83.8 Other surgical procedures as the cause of abnormal reaction of the patient, or of later complication, without mention of misadventure at the time of the procedure; Y92.238 Other place in hospital as the place of occurrence of the external cause
CPT/HCPCS: 31500; 36415; 36430; 36569; 36600; 70450; 71010; 71250; 74176; 76536; 76700; 76937; 78226; 80048; 80053; 80162; 80202; 81001; 81003; 82043; 82270; 82533; 82803; 82962; 83605; 83735; 83880; 84100; 84145; 84155; 84300; 84436; 84439; 84443; 84479; 84484; 85014; 85018; 85025; 85610; 85730; 86704; 86709; 86803; 86850; 86900; 86901; 86920; 87040; 87070; 87075; 87081; 87086; 87340; 89220; 90935; 92950; 93005; 93306; 93970; 93971; 94002; 94003; 94640; 94660; 94664; 94770; 95819; 96365; 96375; 96376; 97110; 97161; 97162; 97530; J1120; J1940; A9537; C1750; C1752; C1769; C9113; J0131; J0171; J0282; J0360; J0456; J0692; J0744; J1265; J1644; J1650; J1720; J1815; J2060; J2185; J2250; J2270; J2370; J2405; J2543; J2765; J2997; J3010; J3370; J3475; J7030; J7042; J7050; J7060; J7070; J7120; J7999; P9016; P9047; Q4081